=== PATIENT | female | born 1960 | race Caucasian/White ===

== ENCOUNTER 2016-11-26 09:13 | Emergency (ER) | payer MEDICARE ==
[~2016-11-26] VITALS: Ht 157.5 cm; Wt 78.0 kg
[~2016-11-26 09:13] MED LIST: ADDR10T; ALBU8.5H2 IH; AMLO5TAB2 PO; AMLO5TAB4 PO; ASP81CT PO; ASPI-875 PO; ATOR10TA PO; ATOR20TA49 PO; ATOR20TA66 PO; BENZ-13 PO; BENZ100C23 PO; CALC-80 PO; CALCIUM; CEFU250T PO; CEPH500C PO; CIPR-225 PO; CLOP75TA28 PO; CLOP75TA69 PO; DIAZ5TAB PO; DOXY100C42 PO; DXPN25C; GABA-486 PO; GABA-488 PO; GABA100C PO; GABA300C PO; GBPN300C; GBPN600T; HUM; HUMALOG; HYDR-2890 PO; HYDR-32; HYDR-34; HYDR-3720 PO; HYDR-757 PO; INSASP10V SC; INSASP10V SQ; INSHRV; INSU100C4; INSU100I23 SQ; INSU100I29 SQ; INSU100I5 SQ; INSU100V5 SQ; INSU100V8; INSU100VTC SQ; ISOS30TA3 PO; LINA5TAB PO; MELO15TA14 PO; METF-472 PO; METF1000 PO; METF500T4 PO; NOVLOG; OMEG-160 PO; OMEP-10 PO; OMEP20CA12 PO; OXYC-197 PO; OXYC-202 PO; OXYC-272 PO; OXYC-471 PO; OXYC1TAB25 PO; OXYC1TAB95 PO; PANT20TA3 PO; PANT40TA2 PO; PERCOCET; PHEN200T27 PO; PRD20T PO; PRM25T PO; PROM25SU10 PR; PROM25TA14 PO; PROM50SU10 RC; RT-ALBUINH IH; TICA90TA PO; TIZA4CAP6 PO; TRAM-42 PO; TRAM50TA2 PO; TRAZ-28 PO; WRF5T; lisinopril
[2016-11-26 10:01] LABS: BILIRUBIN,URINE NEGATIVE (NEGATIVE); KETONES,URINE NEGATIVE (NEGATIVE); LEUKOCYTE ESTERASE ,URINE NEGATIVE (NEGATIVE); NITRITE,URINE NEGATIVE (NEGATIVE); PH,URINE 6.5 (5-9); PROTEIN,URINE 2+ (NEGATIVE); UROBILINOGEN,URINE NORMAL (NORMAL)
[2016-11-26 10:10] LABS: SQUAMOUS EPITHELIAL CELL,UR RARE /HPF
[2016-11-26 10:35] LABS: BASOPHILS # (AUTO) 0.1 10^3/uL (0.0-0.1); BASOPHILS % (AUTO) 1 % (0-10); EOSINOPHILS # (AUTO) 0.2 10^3/uL (0.0-0.3); EOSINOPHILS % (AUTO) 2 % (0-10); LYMPHOCYTES % (AUTO) 22 % (12-44); MEAN CORPUSCULAR HEMOGLOBIN 30 PG (25-34); MEAN CORPUSCULAR HGB CONC 35 G/DL (32-36); MEAN CORPUSCULAR VOLUME 85 FL (80-99); MEAN PLATELET VOLUME 9.9 FL (7.4-10.4); MONOCYTES # (AUTO) 0.5 X 10^3 (0.0-1.0); MONOCYTES % (AUTO) 5 % (0-12); NEUTROPHILS # (AUTO) 6.6 X 10^3 (1.8-7.8); NEUTROPHILS % (AUTO) 71 % (42-75); PLATELET COUNT 280 10^3/uL (130-400); WHITE BLOOD COUNT 9.4 10^3/uL (4.3-11.0)
[2016-11-26 10:56] LABS: ALBUMIN 4.3 G/DL (3.2-4.5); BILIRUBIN,TOTAL 0.4 MG/DL (0.1-1.0); CREATININE SERUM 1.23 MG/DL (0.60-1.30); POTASSIUM 4.7 MMOL/L (3.6-5.0); TOTAL PROTEIN 7.4 G/DL (6.4-8.2)
[2016-11-26] MEDS ORDERED: fentaNYL INJECTION 100 MCG/2 ML AMP IVP ONE (11:00)
[2016-11-26] MEDS ORDERED: NS IV 1000 ML 1,000 ML IV SCH ×2 (11:00→12:30)
[2016-11-26] MEDS ORDERED: inSUlin (REGULAR) HUMAN 1 UNIT/0.01 ML (CHARGE PER UNIT) IV ONE ×2 (11:00→12:45)
--- NOTE | 2016-11-26 11:34 | ED General ---
General Chief Complaint: Glucose Problems Stated Complaint: ELEV BLOOD SUGAR Nursing Triage Note: c/o elevated blood sugar. Reports glucometer read "too high". Nausea reported Nursing Sepsis Screen: No Definite Risk Source of Information: Patient Exam Limitations: No Limitations History of Present Illness Time Seen by Provider: 11:32 Initial Comments To Er with c/o hyperglycemia since last night. Takes novolog on sliding scale, levimir, metformin prescribed by pedigree tracer Dr. Huertas. Patient does not have a primary care provider. She states "I could've just taken more insulin at home but I was nauseas so I decided to come here". She reports increased pain in bilateral lower extremities which she states is chronic for her secondary to neuropathy. She denies shortness of breath but does report a cough that is nonproductive. Severity: Moderate Associated Systoms: Cough Nausea/Vomiting Allergies and Home Medications Allergies Coded Allergies: ketorolac (Verified Allergy, Severe, ANAPHYLAXIS, PT TAKES ASA AT HOME, ) ondansetron (Verified Allergy, Intermediate, RASH, 07/19/14) RASH/ HIVES exenatide (Verified Allergy, Unknown, NAUSEA, 07/19/14) NON STOP VOMITING latex (Verified Allergy, Unknown, RASH, 07/19/14) metoclopramide (Verified Allergy, Unknown, RESTLESS LEGS, 07/19/14) Home Medications Amlodipine Besylate 5 Mg Tablet 5 MG PO DAILY (Reported) Aspirin 81 Mg Tablet.dr 81 MG PO DAILY (Reported) Atorvastatin Calcium 20 Mg Tablet 20 MG PO HS (Reported) Benzonatate 100 Mg Capsule #20 (Reported) Calcium Carbonate/Vitamin D3 1 Each Tablet 1 TAB PO DAILY (Reported) Gabapentin 100 Mg Capsule 300 MG PO AM (Reported) Gabapentin 300 Mg Capsule 900 MG PO HS (Reported) Hydrocodone/Acetaminophen 1 Each Tablet #10 1 EACH PO Q6H Prescribed by: LATANYA HOLLINGSWORTH on 10/12/16 1805 Insulin Detemir 100 Unit/1 Ml Insuln.pen 50 UNITS SQ BID (Reported) Insulin Lispro 100 Unit/1 Ml Insuln.pen 0 SQ AC (Reported) PER SLIDING SCALE 1 UNIT PER 3 CARBOHYDRATES 1 UNIT FOR EVERY 15 > 150 Linagliptin 5 Mg Tablet 5 MG PO DAILY (Reported) Meloxicam 15 Mg Tablet #10 15 MG PO DAILY Prescribed by: PURA PIÑA on 06/28/16 1823 Metformin HCl 500 Mg Tablet #60 (Reported) Omeprazole 20 Mg Capsule.dr #30 (Reported) Pantoprazole Sodium 20 Mg Tablet.dr 20 MG PO DAILY (Reported) Tramadol HCl 50 Mg Tablet #90 (Reported) Tramadol HCl 50 Mg Tablet #20 50 MG PO Q4H Prescribed by: PURA PIÑA on 10/16/16 2200 Trazodone HCl 50 Mg Tablet 50 MG PO HS (Reported) Constitutional: see HPINo chills, No fever EENTM: see HPI Respiratory: no symptoms reported Cardiovascular: no symptoms reported Genitourinary: no symptoms reported Musculoskeletal: no symptoms reported Skin: no symptoms reported Psychiatric/Neurological: No Symptoms Reported Hematologic/Lymphatic: No Symptoms Reported Past Yqwnyxn-Pyzzis-Grxmoz Hx Patient Social History Alcohol Use: Rarely Uses Recreational Drug Use: No Smoking Status: Former Smoker Type Used: Cigarettes Former Smoker/When Quit: Recent Foreign Travel: No Contact w/Someone Who Travel: No Recent Infectious Disease Expo: No Recent Hopitalizations: No Physical Abuse Screen: No Sexual Abuse: No Immunizations Up To Date Tetanus Booster (TDap): Less than 5yrs PED Vaccines UTD: No Date of Pneumonia Vaccine: Dec 12, 2013 Date of Influenza Vaccine: Sep 20, 2015 Seasonal Allergies Seasonal Allergies: No Surgeries HX Surgeries: Yes Surgeries: Cardiac, Coronary Stent, Ear Surgery, Gallbladder, Orthopedic, Renal Respiratory Hx Respiratory Disorders: No Cardiovascular Hx Cardiac Disorders: Yes (CARDIAC STENTS) Cardiac Disorders: Chronic Edema/Swelling, Coronary Artery Disease, Deep Vein Thrombosis, High Cholesterol, Hypertension Neurological Hx Neurological Disorders: Yes (NEUROPATHY IN HANDS AND FEET) Neurological Disorders: Neuropathy 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 System Hx 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 Disorders: No Sexually Transmitted Disease: No HIV/AIDS: No 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 Disorders: Denies CARD BRUSHER History: Menopausal Genitourinary Hx Genitourinary Disorders: Yes (PT STATES RENAL FAILURE X 3--NO DIALYSIS) Genitourinary Disorders: Bladder Infection, Kidney Stones, Renal Failure Gastrointestinal Hx Gastrointestinal Disorders: Yes Gastrointestinal Disorders: Gastroesophageal Reflux, Gall Bladder Disease, Irritable Bowel Musculoskeletal Hx Musculoskeletal Disorders: Yes (CHRONIC NECK PAIN, PSORIATIC ARTHRITIS ) Musculoskeletal Disorders: Degenerate Disk Disease, Arthritis, Fibromyalgia, Chronic Back Pain Endocrine Hx Endocrine Disorders: Yes Endocrine Disorders: Diabetes, Insulin dep HEENT HX ENT Disorders: Yes HEENT Disorders: Chronic Ear Infection Loss of Vision: Denies Hearing Impairment: Hard of Hearing Cancer Hx Cancer: No Psychosocial Hx Psychiatric Problems: No Integumentary HX Skin/Integumentary Disorder: Yes Skin/Integumentary Disorders: Psoriasis Blood Transfusions Hx Blood Disorders: No Adverse Reaction to a Blood Tr: No Family Medical History Family Medial History: Cancer of mouth 19 FATHER ( of esophogeal cancer.) Cardiovascular disease 19 MOTHER G8 BROTHER Completed stroke 19 FATHER G8 BROTHER Diabetes mellitus G8 BROTHER FH: lung cancer 19 MOTHER Hypertension 19 FATHER Kidney disease 19 FATHER Myocardial infarction 19 MOTHER G8 BROTHER Respiratory disorder No Family History of: AIDS Physical Exam Vital Signs Vital Sign - Last 12Hours 11/26/16 09:57 Temp 97.9 Pulse 97 Resp 18 B/P 171/87 Pulse Ox 98 Capillary Refill : Less Than 3 Seconds General Appearance: No Apparent Distress WD/WN Eyes: Bilateral Eye EOMI, Bilateral Eye Normal Inspection, Bilateral Eye PERRL HEENT: PERRL/EOMI TMs Normal Neck: Full Range of Motion Normal Inspection Respiratory: Normal Breath Sounds No Accessory Muscle Use No Respiratory Distress Cardiovascular: Regular Rate, Rhythm Normal Peripheral Pulses Gastrointestinal: Non Tender Soft Extremity: Normal Capillary Refill No Calf Tenderness Neurologic/Psychiatric: Alert Oriented x3 Skin: Normal Color Warm/Dry Progress/Results/Core Measures Results/Orders Lab Results Laboratory Tests Test 11/26/16 09:43 11/26/16 09:50 11/26/16 10:30 11/26/16 12:41 Range/Units Glucometer 578 *H 399 H 70-110 MG/DL Urine Bacteria NEGATIVE /HPF Urine Bilirubin NEGATIVE NEGATIVE Urine Casts NONE /LPF Urine Clarity CLEAR Urine Color YELLOW Urine Crystals NONE /LPF Urine Culture Indicated NO Urine Glucose (UA) 4+ H NEGATIVE Urine Ketones NEGATIVE NEGATIVE Urine Leukocyte Esterase NEGATIVE NEGATIVE Urine Mucus NEGATIVE /LPF Urine Nitrite NEGATIVE NEGATIVE Urine Protein 2+ H NEGATIVE Urine RBC NONE /HPF Urine RBC (Auto) NEGATIVE NEGATIVE Urine Specific [place] 1.005 L 1.016-1.022 Urine Squamous Epithelial Cells RARE /HPF Urine Urobilinogen NORMAL NORMAL MG/DL Urine WBC NONE /HPF Urine pH 6.5 5-9 Alanine Aminotransferase (ALT/SGPT) 13 0-55 U/L Albumin 4.3 3.2-4.5 G/DL Alkaline Phosphatase 74 40-136 U/L Anion Gap 12 5-14 MMOL/L Aspartate Amino Transf (AST/SGOT) 15 5-34 U/L BUN/Creatinine Ratio 13 Basophils # (Auto) 0.1 0.0-0.1 10^3/uL Basophils (%) (Auto) 1 0-10 % Blood Urea Nitrogen 16 7-18 MG/DL Calcium Level 10.0 8.5-10.1 MG/DL Carbon Dioxide Level 20 L 21-32 MMOL/L Chloride Level 101 98-107 MMOL/L Creatinine 1.23 0.60-1.30 MG/DL Eosinophils # (Auto) 0.2 0.0-0.3 10^3/uL Eosinophils (%) (Auto) 2 0-10 % Estimat Glomerular Filtration Rate 45 Glucose Level 670 *H 70-105 MG/DL Hematocrit 43 35-52 % Hemoglobin 15.0 11.5-16.0 G/DL Hemoglobin A1c 9.4 H 4.5-6.2 % Lymphocytes # (Auto) 2.0 1.0-4.0 X 10^3 Lymphocytes (%) (Auto) 22 12-44 % Mean Corpuscular Hemoglobin 30 25-34 PG Mean Corpuscular Hemoglobin Concent 35 32-36 G/DL Mean Corpuscular Volume 85 80-99 FL Mean Platelet Volume 9.9 7.4-10.4 FL Monocytes # (Auto) 0.5 0.0-1.0 X 10^3 Monocytes (%) (Auto) 5 0-12 % Neutrophils # (Auto) 6.6 1.8-7.8 X 10^3 Neutrophils (%) (Auto) 71 42-75 % Platelet Count 280 130-400 10^3/uL Potassium Level 4.7 3.6-5.0 MMOL/L Red Blood Count 5.00 4.35-5.85 10^6/uL Red Cell Distribution Width 13.0 10.0-14.5 % Sodium Level 133 L 135-145 MMOL/L Total Bilirubin 0.4 0.1-1.0 MG/DL Total Protein 7.4 6.4-8.2 G/DL White Blood Count 9.4 4.3-11.0 10^3/uL My Orders Orders-JR MARIE APRN Ns Iv 1000 Ml (Sodium Chloride 0.9%) (11/26/16 11:00) Insulin (Regular) Human (Humulin R (Per (11/26/16 11:00) Fentanyl Injection (Sublimaze Injection (11/26/16 11:00) Chest Pa/Lat (2 View) (11/26/16 11:30) Hemoglobin A1c (11/26/16 12:25) Ns Iv 1000 Ml (Sodium Chloride 0.9%) (11/26/16 12:30) Accucheck Stat ONCE (11/26/16 12:30) Promethazine Syrup (Phenergan Syrup) (11/26/16 12:45) Insulin (Regular) Human (Humulin R (Per (11/26/16 12:45) Promethazine Injection (Phenergan Injec (11/26/16 13:00) Promethazine Injection (Phenergan Injec (11/26/16 13:00) Diphenhydramine Injection (Benadryl Inje (11/26/16 13:00) Accucheck Stat ONCE (11/26/16 13:23) Medications Given in ED Current Medications Medications Dose Ordered Sig/Jackie Route Start Time Stop Time Status Last Admin Dose Admin Diphenhydramine HCl 12.5 mg ONCE ONCE IM 11/26/16 13:00 11/26/16 13:01 DC 11/26/16 13:02 12.5 MG Fentanyl Citrate 50 mcg ONCE ONCE IVP 11/26/16 11:00 11/26/16 11:03 DC 11/26/16 11:21 50 MCG Insulin Human Regular 5 unit ONCE ONCE IV 11/26/16 12:45 11/26/16 12:46 DC 11/26/16 12:47 5 UNIT Insulin Human Regular 10 unit ONCE ONCE IV 11/26/16 11:00 11/26/16 11:03 DC 11/26/16 11:21 10 UNIT Promethazine HCl 12.5 mg ONCE ONCE IM 11/26/16 13:00 11/26/16 13:01 DC 11/26/16 13:19 12.5 MG Vital Signs/I&O Vital Sign - Last 12Hours 11/26/16 09:57 Temp 97.9 Pulse 97 Resp 18 B/P 171/87 Pulse Ox 98 Blood Pressure Mean: 115 Diagnostic Imaging Diagonstic Imaging: Xray Plain Films/CT/US/NM/MRI: chest Comments NAME: VALENTE [facility] REC#: [id number] PT STATUS: REG ER : 1960 PHYSICIAN: JR MARIE APRN ADMIT DATE: 11/26/16/ER Signed Date of Exam:11/26/16 CHEST PA/LAT (2 VIEW) PA and lateral views of the chest Indication: High blood sugar. Fever. Cough. Findings: The lungs are clear. The heart size is normal. There is no effusion or pneumothorax The mediastinum and boby appear unremarkable. Cervical spine fusion hardware seen. Impression: Unremarkable study. Dictated by: Dictated on workstation # [id number] Dict: 11/26/16 1209 Trans: 11/26/16 1209 [facility] [id number] Interpreted by: ERON MARTINEZ MD Electronically signed by: ERON MARTINEZ MD 11/26/16 1212 Departure Impression Impression: Primary Impression: Uncontrolled type 2 DM with hyperosmolar nonketotic hyperglycemia Additional Impression: Chronic pain Disposition: HOME, SELF-CARE Condition: Improved Departure-Patient Inst. Decision time for Depature: 12:24 Referrals: NO,LOCAL PHYSICIAN (PCP/Family) Primary Care Physician Patient Instructions: Diabetes Type 2 (DC) Add. Discharge Instructions: Use your insulin according to your sliding scale to prevent episodes like this from occurring 2. Drink plenty of fluids 3. Check your blood sugars every 2-3 hours to maintain a blood sugar of 100- 200. All discharge instructions reviewed with patient and/or family. Voiced understanding. JR MARIE APRN Nov 26, 2016 11:34
--- NOTE | 2016-11-26 12:12 | Diagnostic Imaging Report ---
PA and lateral views of the chest Indication: High blood sugar. Fever. Cough. Findings: The lungs are clear. The heart size is normal. There is no effusion or pneumothorax The mediastinum and boby appear unremarkable. Cervical spine fusion hardware seen. Impression: Unremarkable study. Dictated by: Dictated on workstation # [id number]
[2016-11-26] MEDS ORDERED: PROMETHAZINE 6.25 MG/5 ML SYRUP (PHENERGAN) 5 ML UDC PO ONE (12:45)
[2016-11-26] MEDS ORDERED: PROMETHAZINE INJ 25 MG/ML (PHENERGAN) AMP IM ONE ×2 (13:00)
[2016-11-26] MEDS ORDERED: diphenhydrAMINE 50 MG/ML INJ (BENADRYL) IM ONE (13:00)
[2016-11-26 14:14] VITALS: BP 165/93
[2016-12-02] MEDS ORDERED: HYDR-3812 PO (13:35)
[2016-12-30] MEDS ORDERED: IBUP-2055 PO (10:19)
== END 2016-11-26 14:14 | disposition home or self-care (01) ==
LOC: EDUNIT# 09:13 → ER 09:14
DX: E11.65 Type 2 diabetes mellitus with hyperglycemia (principal); E11.40 Type 2 diabetes mellitus with diabetic neuropathy, unspecified; G89.29 Other chronic pain; I10 Essential (primary) hypertension; I25.10 Atherosclerotic heart disease of native coronary artery without angina pectoris; Z79.82 Long term (current) use of aspirin; Z79.84 Long term (current) use of oral hypoglycemic drugs; Z79.899 Other long term (current) drug therapy; Z95.5 Presence of coronary angioplasty implant and graft
CPT/HCPCS: 36415; 71020; 80053; 81000; 82962; 83036; 85025; 96361; 96372; 96374; 96375; 96376

== ENCOUNTER 2016-11-30 08:40 | Inpatient (IN) | payer MEDICARE ==
[~2016-11-30] VITALS: Ht 152.4 cm; Wt 78.0 kg
[2016-11-30] MEDS ORDERED: NS IV 1000 ML 1,000 ML IV STA (09:05)
[2016-11-30] MEDS ORDERED: PROMETHAZINE INJ 25 MG/ML (PHENERGAN) AMP IVP STA (09:05)
[2016-11-30] MEDS ORDERED: inSUlin (REGULAR) HUMAN 1 UNIT/0.01 ML (CHARGE PER UNIT) IV STA (09:14)
[2016-11-30] MEDS ORDERED: diphenhydrAMINE 50 MG/ML INJ (BENADRYL) IV STA (09:14)
--- NOTE | 2016-11-30 09:21 | ED General ---
General Chief Complaint: Glucose Problems Stated Complaint: HIGH BS, CHEST PAIN Nursing Triage Note: Pt reports blood sugar reading "hi" on home glucometer since last night. Pt also reports CP since last night and stating "everything hurts". Pt c/o nausea and states phenergan and benadryl are the only things that will fix it. Nursing Sepsis Screen: No Definite Risk Source of Information: Patient Exam Limitations: No Limitations History of Present Illness Time Seen by Provider: 09:05 Initial Comments Here with 4 days of labile blood sugar and reading high. This is associated with nausea and vomiting. Does have history of diabetes that is usually somewhat well controlled. She has no primary care doctor but does have specialty physicians in endocrinology, pain management and cardiology. Reports multiple episodes of nausea and vomiting. Blood sugar has red eyes since yesterday. Does report cough Timing/Duration: 4-5 Days Severity: Moderate, Severe Modifying Factors: improves with Rest Associated Systoms: CoughNo Fever/Chills, Nausea/Vomiting Shortness of Air Weakness Allergies and Home Medications Allergies Coded Allergies: ketorolac (Verified Allergy, Severe, ANAPHYLAXIS, PT TAKES ASA AT HOME, ) ondansetron (Verified Allergy, Intermediate, RASH, 07/19/14) RASH/ HIVES exenatide (Verified Allergy, Unknown, NAUSEA, 07/19/14) NON STOP VOMITING latex (Verified Allergy, Unknown, RASH, 07/19/14) metoclopramide (Verified Allergy, Unknown, RESTLESS LEGS, 07/19/14) Home Medications Amlodipine Besylate 5 Mg Tablet 5 MG PO DAILY (Reported) Aspirin 81 Mg Tablet.dr 81 MG PO DAILY (Reported) Atorvastatin Calcium 20 Mg Tablet 20 MG PO HS (Reported) Benzonatate 100 Mg Capsule #20 (Reported) Calcium Carbonate/Vitamin D3 1 Each Tablet 1 TAB PO DAILY (Reported) Gabapentin 100 Mg Capsule 300 MG PO AM (Reported) Gabapentin 300 Mg Capsule 900 MG PO HS (Reported) Hydrocodone/Acetaminophen 1 Each Tablet #10 1 EACH PO Q6H Prescribed by: LATANYA HOLLINGSWORTH on 10/12/16 1805 Insulin Detemir 100 Unit/1 Ml Insuln.pen 50 UNITS SQ BID (Reported) Insulin Lispro 100 Unit/1 Ml Insuln.pen 0 SQ AC (Reported) PER SLIDING SCALE 1 UNIT PER 3 CARBOHYDRATES 1 UNIT FOR EVERY 15 > 150 Linagliptin 5 Mg Tablet 5 MG PO DAILY (Reported) Meloxicam 15 Mg Tablet #10 15 MG PO DAILY Prescribed by: PURA PIÑA on 06/28/16 1823 Metformin HCl 500 Mg Tablet #60 (Reported) Omeprazole 20 Mg Capsule.dr #30 (Reported) Pantoprazole Sodium 20 Mg Tablet.dr 20 MG PO DAILY (Reported) Tramadol HCl 50 Mg Tablet #90 (Reported) Tramadol HCl 50 Mg Tablet #20 50 MG PO Q4H Prescribed by: PURA PIÑA on 10/16/16 2200 Trazodone HCl 50 Mg Tablet 50 MG PO HS (Reported) Constitutional: see HPINo chills, No fever EENTM: no symptoms reported Respiratory: see HPI cough short of breath Cardiovascular: no symptoms reported Gastrointestinal: see HPI nausea vomiting Genitourinary: no symptoms reported Musculoskeletal: no symptoms reported Skin: no symptoms reported Psychiatric/Neurological: See HPIDenies Headache, Weakness Hematologic/Lymphatic: No Symptoms Reported All Other Systems Reviewed Negative Unless Noted: Yes Past Cncgihq-Ctnreb-Yakcmq Hx Patient Social History Alcohol Use: Denies Use Recreational Drug Use: No Smoking Status: Former Smoker Type Used: Cigarettes Former Smoker/When Quit: Recent Foreign Travel: No Contact w/Someone Who Travel: No Recent Infectious Disease Expo: No Recent Hopitalizations: No Physical Abuse Screen: No Sexual Abuse: No Immunizations Up To Date Tetanus Booster (TDap): Less than 5yrs PED Vaccines UTD: No Date of Pneumonia Vaccine: Dec 12, 2013 Date of Influenza Vaccine: Sep 20, 2015 Seasonal Allergies Seasonal Allergies: No Surgeries HX Surgeries: Yes Surgeries: Cardiac, Coronary Stent, Ear Surgery, Gallbladder, Orthopedic, Renal Respiratory Hx Respiratory Disorders: No Cardiovascular Hx Cardiac Disorders: Yes (CARDIAC STENTS) Cardiac Disorders: Chronic Edema/Swelling, Coronary Artery Disease, Deep Vein Thrombosis, High Cholesterol, Hypertension Neurological Hx Neurological Disorders: Yes (NEUROPATHY IN HANDS AND FEET) Neurological Disorders: Neuropathy 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 System Hx 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 Disorders: No Sexually Transmitted Disease: No HIV/AIDS: No 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 Disorders: Denies 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 History: Menopausal Genitourinary Hx Genitourinary Disorders: Yes (PT STATES RENAL FAILURE X 3--NO DIALYSIS) Genitourinary Disorders: Bladder Infection, Kidney Stones, Renal Failure Gastrointestinal Hx Gastrointestinal Disorders: Yes Gastrointestinal Disorders: Gastroesophageal Reflux, Gall Bladder Disease, Irritable Bowel Musculoskeletal Hx Musculoskeletal Disorders: Yes (CHRONIC NECK PAIN, PSORIATIC ARTHRITIS ) Musculoskeletal Disorders: Degenerate Disk Disease, Arthritis, Fibromyalgia, Chronic Back Pain Endocrine Hx Endocrine Disorders: Yes Endocrine Disorders: Diabetes, Insulin dep HEENT HX ENT Disorders: Yes HEENT Disorders: Chronic Ear Infection Loss of Vision: Denies Hearing Impairment: Hard of Hearing Cancer Hx Cancer: No Psychosocial Hx Psychiatric Problems: No Integumentary HX Skin/Integumentary Disorder: Yes Skin/Integumentary Disorders: Psoriasis Blood Transfusions Hx Blood Disorders: No Adverse Reaction to a Blood Tr: No Reviewed Nursing Assessment Reviewed/Agree w Nursing PMH: Yes Family Medical History Significant Family History: No Pertinent Family Hx Family Medial History: Cancer of mouth 19 FATHER ( of esophogeal cancer.) Cardiovascular disease 19 MOTHER G8 BROTHER Completed stroke 19 FATHER G8 BROTHER Diabetes mellitus G8 BROTHER FH: lung cancer 19 MOTHER Hypertension 19 FATHER Kidney disease 19 FATHER Myocardial infarction 19 MOTHER G8 BROTHER Respiratory disorder Physical Exam Vital Signs Vital Sign - Last 12Hours 11/30/16 08:44 Temp 96.7 Pulse 90 Resp 18 B/P 157/83 Pulse Ox 97 O2 Delivery Room Air Capillary Refill : Less Than 3 Seconds General Appearance: No Apparent Distress WD/WN HEENT: PERRL/EOMI Pharynx Normal Neck: Non Tender Supple Respiratory: No Accessory Muscle UseNo Wheezing, Other (course sounds with cough) Cardiovascular: Regular Rate, Rhythm No Murmur Gastrointestinal: Non Tender Soft Extremity: Non Tender No Calf Tenderness Neurologic/Psychiatric: Alert Oriented x3 Skin: Normal Color Warm/Dry Progress/Results/Core Measures Results/Orders Lab Results Laboratory Tests Test 11/30/16 08:52 11/30/16 09:19 11/30/16 13:00 Range/Units Glucometer > 600 *H 70-110 MG/DL Urine Bacteria TRACE /HPF Urine Bilirubin NEGATIVE NEGATIVE Urine Casts NONE /LPF Urine Clarity CLEAR Urine Color YELLOW Urine Crystals NONE /LPF Urine Culture Indicated NO Urine Glucose (UA) 4+ H NEGATIVE Urine Ketones NEGATIVE NEGATIVE Urine Leukocyte Esterase NEGATIVE NEGATIVE Urine Mucus NEGATIVE /LPF Urine Nitrite NEGATIVE NEGATIVE Urine Protein NEGATIVE NEGATIVE Urine RBC NONE /HPF Urine RBC (Auto) NEGATIVE NEGATIVE Urine Specific Mcloud 1.005 L 1.016-1.022 Urine Squamous Epithelial Cells RARE /HPF Urine Urobilinogen NORMAL NORMAL MG/DL Urine WBC NONE /HPF Urine Yeast FEW H /HPF Urine pH 6.5 5-9 Activated Partial Thromboplast Time 21 L 24-35 SEC Alanine Aminotransferase (ALT/SGPT) 9 0-55 U/L Albumin 4.5 3.2-4.5 G/DL Alkaline Phosphatase 93 40-136 U/L Amylase Level 52 25-125 U/L Anion Gap 13 5-14 MMOL/L Aspartate Amino Transf (AST/SGOT) 7 5-34 U/L BUN/Creatinine Ratio 19 Basophils # (Auto) 0.1 0.0-0.1 10^3/uL Basophils (%) (Auto) 1 0-10 % Blood Urea Nitrogen 30 H 7-18 MG/DL Calcium Level 9.8 8.5-10.1 MG/DL Carbon Dioxide Level 22 21-32 MMOL/L Chloride Level 93 L 98-107 MMOL/L Creatinine 1.54 H 0.60-1.30 MG/DL Eosinophils # (Auto) 0.3 0.0-0.3 10^3/uL Eosinophils (%) (Auto) 2 0-10 % Estimat Glomerular Filtration Rate 35 Glucose Level 823 *H 70-105 MG/DL Hematocrit 41 35-52 % Hemoglobin 14.9 11.5-16.0 G/DL INR Comment 0.9 0.8-1.4 Lipase 52 8-78 U/L Lymphocytes # (Auto) 2.7 1.0-4.0 X 10^3 Lymphocytes (%) (Auto) 22 12-44 % Mean Corpuscular Hemoglobin 30 25-34 PG Mean Corpuscular Hemoglobin Concent 37 H 32-36 G/DL Mean Corpuscular Volume 82 80-99 FL Mean Platelet Volume 10.8 H 7.4-10.4 FL Monocytes # (Auto) 0.6 0.0-1.0 X 10^3 Monocytes (%) (Auto) 5 0-12 % Neutrophils # (Auto) 8.5 H 1.8-7.8 X 10^3 Neutrophils (%) (Auto) 70 42-75 % Platelet Count 233 130-400 10^3/uL Potassium Level 4.7 3.6-5.0 MMOL/L Prothrombin Time 12.1 L 12.2-14.7 SEC Red Blood Count 4.98 4.35-5.85 10^6/uL Red Cell Distribution Width 12.7 10.0-14.5 % Sodium Level 128 L 135-145 MMOL/L Total Bilirubin 0.6 0.1-1.0 MG/DL Total Protein 7.6 6.4-8.2 G/DL Troponin I < 0.30 <0.30 NG/ML White Blood Count 12.1 H 4.3-11.0 10^3/uL My Orders Orders-VALENTIN YANES MD Promethazine Injection (Phenergan Injec (11/30/16 09:05) Ns Iv 1000 Ml (Sodium Chloride 0.9%) (11/30/16 09:05) Amylase (11/30/16 09:05) Cbc With Automated Diff (11/30/16 09:05) Comprehensive Metabolic Panel (11/30/16 09:05) Lipase (11/30/16 09:05) Protime With Inr (11/30/16 09:05) Partial Thromboplastin Time (11/30/16 09:05) Troponin I (11/30/16 09:05) Ua Culture If Indicated (11/30/16 09:05) Chest Pa/Lat (2 View) (11/30/16 09:05) Ekg Tracing (11/30/16 09:05) O2 (11/30/16 09:05) Monitor-Rhythm Ecg Trace Only (11/30/16 09:05) Diphenhydramine Injection (Benadryl Inje (11/30/16 09:14) Insulin (Regular) Human (Humulin R (Per (11/30/16 09:14) Picc Insertion .on Insertion (11/30/16 10:44) Chest 1 View, Ap/Pa Only (11/30/16 11:48) Cath [id number] (11/30/16 ) Amb Us Guide Vascular Access (11/30/16 ) Diphenhydramine Injection (Benadryl Inje (11/30/16 12:40) Promethazine Injection (Phenergan Injec (11/30/16 12:40) Ns Iv 1000 Ml (Sodium Chloride 0.9%) (11/30/16 12:40) Insulin (Regular) Human (Humulin R (Per (11/30/16 12:41) Morphine Injection (Morphine Injection (11/30/16 14:07) Vital Signs/I&O Vital Sign - Last 12Hours 11/30/16 11/30/16 08:44 09:14 Temp 96.7 Pulse 90 Resp 18 B/P 157/83 Pulse Ox 97 97 O2 Delivery Room Air Room Air Blood Pressure Mean: 107 Point of Care Testing Blood Glucose Action Taken: GLUCOMETER READING "HI" Progress Note : Progress Note Seen and evaluated. IV, labs, EKG and chest x-ray ordered. Normal saline bolus. Insulin 10 units IV ordered. Phenergan 25 mg IV and Benadryl 50 mg IV ordered. Monitor patient. Multiple attempts at IV tried by both nursing and myself. Unable to get any IV access. Patient does have blood sugar greater than 600 and is very concerning for her uncontrolled diabetes. Option of PICC line versus central line. We will place PICC line and get labs and fluids that are going to be needed for resuscitation. This was discussed with the patient who agrees. 1400: I did discuss the case with Dr. Berry at 1355. She accepts patient for admission, inpatient status due to the hyperglycemia with hyperosmolar state and acute renal failure. She also has persistent nausea which is can complicate her course. Patient did receive a liter of fluid here and we will continue IV fluid at 150 mL an hour. Sliding scale insulin will be initiated. We also discussed with the patient regarding consult with surgeon for port placement due to patient's terrible access. Patient is in full agreement with this. Consult was ordered. Admit, inpatient status. Patient agrees with plan. ECG Initial ECG Impression Date: Nov 30, 2016 Initial ECG Impression Time: 08:49 Initial ECG Rate: 93 Initial ECG Rhythm: Normal Sinus Comment Sinus rhythm with normal axis. No evidence of ST elevation CO. Similar to previous of 03/10/16. Interpreted by me. Diagnostic Imaging Diagonstic Imaging: Xray Plain Films/CT/US/NM/MRI: chest Comments VIA [facility], [facility]. [place], [place] NAME: SCOTVALENTE ROBLEDO MED REC#: [id number] PT STATUS: REG ER : 1960 PHYSICIAN: VALENTIN YANES MD ADMIT DATE: 11/30/16/ER Draft Date of Exam:11/30/16 CHEST PA/LAT (2 VIEW) CLINICAL INDICATION: Patient with blood sugar. EXAM: Chest x-ray PA and lateral views. COMPARISONS: Chest x-ray dated 11/30/2016. FINDINGS: Lungs/pleura: Lungs are clear. There is no pneumothorax. There is no pleural effusion. Mediastinum: Unremarkable. Pulmonary vasculature: Unremarkable. Heart: Unremarkable. Bones/extrathoracic soft tissue: There are hypertrophic degenerative osteophytes scattered throughout the thoracic spine. Lower cervical spine anterior disc fusion is seen. Incompletely imaged lumbar hardware is noted. IMPRESSION: There is no radiographic evidence of acute cardiopulmonary process. Dictated on workstation # [id number] Dict: 11/30/16 0951 Trans: 11/30/[address] [place] [address] [id number] Interpreted by: SHERI CHIANG MD Electronically signed by: Reviewed: Reviewed by Me Departure Communication Time/Spoke to Admitting Phy: 13:55 Impression Impression: Primary Impression: Uncontrolled type 2 DM with hyperosmolar nonketotic hyperglycemia Additional Impression: Acute renal insufficiency Disposition: ADMITTED INPATIENT Condition: Stable Decision to Admit Reason: Admit from ER (General) Decision to Admit/Date: Nov 30, 2016 Time/Decision to Admit Time: 13:55 Departure-Patient Inst. Referrals: NO,LOCAL PHYSICIAN (PCP/Family) Primary Care Physician VALENTIN YANES MD Nov 30, 2016 09:21
[2016-11-30 09:27] LABS: BILIRUBIN,URINE NEGATIVE (NEGATIVE); KETONES,URINE NEGATIVE (NEGATIVE); LEUKOCYTE ESTERASE ,URINE NEGATIVE (NEGATIVE); NITRITE,URINE NEGATIVE (NEGATIVE); PH,URINE 6.5 (5-9); PROTEIN,URINE NEGATIVE (NEGATIVE); UROBILINOGEN,URINE NORMAL (NORMAL)
[2016-11-30 09:34] LABS: SQUAMOUS EPITHELIAL CELL,UR RARE /HPF; YEAST,URINE FEW /HPF
--- NOTE | 2016-11-30 10:03 | Diagnostic Imaging Report ---
CLINICAL INDICATION: Patient with blood sugar. EXAM: Chest x-ray PA and lateral views. COMPARISONS: Chest x-ray dated 11/30/2016. FINDINGS: Lungs/pleura: Lungs are clear. There is no pneumothorax. There is no pleural effusion. Mediastinum: Unremarkable. Pulmonary vasculature: Unremarkable. Heart: Unremarkable. Bones/extrathoracic soft tissue: There are hypertrophic degenerative osteophytes scattered throughout the thoracic spine. Lower cervical spine anterior disc fusion is seen. Incompletely imaged lumbar hardware is noted. IMPRESSION: There is no radiographic evidence of acute cardiopulmonary process. Dictated by: Dictated on workstation # [id number]
--- NOTE | 2016-11-30 12:07 | Diagnostic Imaging Report ---
EXAMINATION: Portable upright radiograph of the chest. INDICATION: PICC line placement. FINDINGS: There is a right PICC line in place with the tip at the distal SVC level. The lungs are clear. The heart size is normal. No effusion or pneumothorax. The mediastinum and boby appear unremarkable. Cervical spine fusion hardware is seen. IMPRESSION: The PICC line tip is at the distal SVC level. No acute process. Dictated by: Dictated on workstation # [id number]
[2016-11-30] MEDS ORDERED: diphenhydrAMINE 50 MG/ML INJ (BENADRYL) ONE (12:40)
[2016-11-30] MEDS ORDERED: NS IV 1000 ML 1,000 ML ONE (12:40)
[2016-11-30] MEDS ORDERED: PROMETHAZINE INJ 25 MG/ML (PHENERGAN) AMP ONE (12:40)
[2016-11-30] MEDS ORDERED: inSUlin (REGULAR) HUMAN 1 UNIT/0.01 ML (CHARGE PER UNIT) ONE (12:41)
[2016-11-30 13:11] LABS: BASOPHILS # (AUTO) 0.1 10^3/uL (0.0-0.1); BASOPHILS % (AUTO) 1 % (0-10); EOSINOPHILS # (AUTO) 0.3 10^3/uL (0.0-0.3); EOSINOPHILS % (AUTO) 2 % (0-10); LYMPHOCYTES # (AUTO) 2.7 X 10^3 (1.0-4.0); LYMPHOCYTES % (AUTO) 22 % (12-44); MEAN CORPUSCULAR HEMOGLOBIN 30 PG (25-34); MEAN CORPUSCULAR HGB CONC 37 G/DL (32-36); MEAN CORPUSCULAR VOLUME 82 FL (80-99); MEAN PLATELET VOLUME 10.8 FL (7.4-10.4); MONOCYTES # (AUTO) 0.6 X 10^3 (0.0-1.0); MONOCYTES % (AUTO) 5 % (0-12); NEUTROPHILS # (AUTO) 8.5 X 10^3 (1.8-7.8); NEUTROPHILS % (AUTO) 70 % (42-75); PLATELET COUNT 233 10^3/uL (130-400); RED BLOOD COUNT 4.98 10^6/uL (4.35-5.85); RED CELL DISTRIBUTION WIDTH 12.7 % (10.0-14.5); WHITE BLOOD COUNT 12.1 10^3/uL (4.3-11.0)
[2016-11-30 13:20] LABS: INR 0.9 (0.8-1.4); PROTHROMBIN TIME PATIENT 12.1 SEC (12.2-14.7)
[2016-11-30 13:31] LABS: ALANINE AMINOTRANSFERASE 9 U/L (0-55); ALBUMIN 4.5 G/DL (3.2-4.5); AMYLASE 52 U/L (25-125); ANION GAP 13 MMOL/L (5-14); ASPARTATE AMINO TRANSFERASE 7 U/L (5-34); BILIRUBIN,TOTAL 0.6 MG/DL (0.1-1.0); BLOOD UREA NITROGEN 30 MG/DL (7-18); BUN/CREATININE RATIO 19; CALCIUM 9.8 MG/DL (8.5-10.1); CARBON DIOXIDE 22 MMOL/L (21-32); CHLORIDE 93 MMOL/L (98-107); CREATININE SERUM 1.54 MG/DL (0.60-1.30); GFR ESTIMATED 35; LIPASE 52 U/L (8-78); POTASSIUM 4.7 MMOL/L (3.6-5.0); SODIUM 128 MMOL/L (135-145); TOTAL PROTEIN 7.6 G/DL (6.4-8.2)
[2016-11-30 13:37] LABS: TROPONIN I < 0.30 NG/ML (<0.30)
[2016-11-30 13:48] LABS: GLUCOSE 823 MG/DL (70-105)
[2016-11-30] MEDS ORDERED: morphine INJ 10 MG/ML 1ML (SYR OR VIAL) IVP STA (14:07)
--- NOTE | 2016-11-30 14:34 | History & Physical-Hospitalist ---
CONSUELOSWETHAALEX MED STUDENT 11/30/16 1433: HPI History of Present Illness: HPI/Chief Complaint CC: high blood sugar HPI: Ms. Urbano is a 56yo with a PMH of DM and CAD who presented to the ED with a blood sugar >800 with nausea and vomiting. Her labs were also significant for a creatinine of 1.5, sodium of 128, WBC of 12.1, and her urine was negative for ketones. She states she has not been able to eat in over a day due to the nausea. Her vascular access is extremely poor. She eventually required a PICC line placed, but will need a more definitive line here shortly. She does not currently have a PCP. She used to go to [facility], but says she will never go back there. She sees multiple specialists including cards, pulm, endo, and pain. She is currently living with her sister and is unemployed on disability. Source: patient, RN/MD Exam Limitations: no limitations Date Seen 11/30/16 Attending Physician Jamal KNAPP No,Local Physician Referring Physician Date of Admission 11/30/16 Home Medications & Allergies Home Medications Reviewed patient Home Medication Reconciliation Form Allergies Coded Allergies: ketorolac (Verified Allergy, Severe, ANAPHYLAXIS, PT TAKES ASA AT HOME, ) ondansetron (Verified Allergy, Intermediate, RASH, 07/19/14) RASH/ HIVES exenatide (Verified Allergy, Unknown, NAUSEA, 07/19/14) NON STOP VOMITING latex (Verified Allergy, Unknown, RASH, 07/19/14) metoclopramide (Verified Allergy, Unknown, RESTLESS LEGS, 07/19/14) Past Diloqcp-Qjxgcw-Phyihu Hx Patient Social History Marrital Status: single Number of Children: 2 Employed/Student: unemployed Alcohol Use: Rarely Uses Recreational Drug Use: No Smoking Status: Former Smoker (30 pack year smoke history, quit smoking this week, but she thinks she will continue because she lives with smokers) Former smoker/When Quit: Type Used: Cigarettes Physical Abuse Screen: No Sexual Abuse: No Recent Foreign Travel: No Contact w/other who traveled: No Recent Hopitalizations: No Recent Infectious Disease Expo: No Immunizations Up To Date Tetanus Booster (TDap): Less than 5yrs Date of Pneumonia Vaccine: Dec 12, 2013 Date of Influenza Vaccine: Sep 20, 2015 Seasonal Allergies Seasonal Allergies: No Surgeries HX Surgeries: Yes Surgeries: Cardiac, Coronary Stent, Ear Surgery, Gallbladder, Orthopedic, Renal Respiratory Hx Respiratory Disorders: No Cardiovascular Hx Cardiovascular Disorders: Yes (CARDIAC STENTS) Cardiac Disorders: Chronic Edema/Swelling, Coronary Artery Disease, Deep Vein Thrombosis, High Cholesterol, Hypertension Neurological Hx Neurological Disorders: Yes (NEUROPATHY IN HANDS AND FEET) Neurological Disorders: Neuropathy 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 System Hx 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 Disorders: No Sexually Transmitted Disease: No HIV/AIDS: No 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 Disorders: Denies Genitourinary Hx Genitourinary Disorders: Yes (PT STATES RENAL FAILURE X 3--NO DIALYSIS) Genitourinary Disorders: Bladder Infection, Kidney Stones, Renal Failure Gastrointestinal Hx Gastrointestinal Disorders: Yes Gastrointestinal Disorders: Gastroesophageal Reflux, Gall Bladder Disease, Irritable Bowel Musculoskeletal Hx Musculoskeletal Disorders: Yes (CHRONIC NECK PAIN, PSORIATIC ARTHRITIS ) Musculoskeletal Disorders: Degenerate Disk Disease, Arthritis, Fibromyalgia, Chronic Back Pain Endocrine Hx Endocrine Disorders: Yes Endocrine Disorders: Diabetes, Insulin dep HEENT HX ENT Disorders: Yes HEENT Disorders: Chronic Ear Infection Loss of Vision: Denies Hearing Impairment: Hard of Hearing Cancer Hx Cancer: No Psychosocial Hx Psychiatric Problems: No Integumentary HX Skin/Integumentary Disorder: Yes Skin/Integumentary Disorders: Psoriasis Blood Transfusions Hx Blood Disorders: No Adverse Reaction to a Blood Tr: No Reviewed Nursing Assessment Reviewed/Agree w Nursing PMH: Yes Family Medical History Significant Family History: No Pertinent Family Hx Family Hx: Cancer of mouth 19 FATHER ( of esophogeal cancer.) Cardiovascular disease 19 MOTHER G8 BROTHER Completed stroke 19 FATHER G8 BROTHER Diabetes mellitus G8 BROTHER FH: lung cancer 19 MOTHER Hypertension 19 FATHER Kidney disease 19 FATHER Myocardial infarction 19 MOTHER G8 BROTHER Respiratory disorder No Family History of: AIDS Review of Systems Constitutional: chills (yesterday) dizzinessNo malaise EENTM: No blurred vision Respiratory: cough (chronic for 6 months)No hemoptysis, No short of breath Cardiovascular: No chest pain, No palpitations Gastrointestinal: No abdominal pain, No constipation, No diarrhea, No hematemesis, nausea vomiting Genitourinary: frequencyNo hematuria Musculoskeletal: back pain joint pain Skin: no symptoms reported Psychiatric/Neurological: Tingling (chronic from neuropathy) All Other Systems Reviewed Negative Unless Noted: Yes Physical Exam Physical Exam Vital Signs Vital Sign - Last 12Hours 11/30/16 08:44 Temp 96.7 Pulse 90 Resp 18 B/P 157/83 Pulse Ox 97 O2 Delivery Room Air Capillary Refill : Less Than 3 Seconds General Appearance: Other (tired, eyes closed during most of interview, sitting up in bed, obese) HEENT: PERRL/EOMI TMs Normal Pharyngeal Erythema Neck: Full Range of Motion Other (webbed neck appearance ) Respiratory: Chest Non Tender Lungs Clear Normal Breath Sounds No Accessory Muscle Use No Respiratory Distress Cardiovascular: Regular Rate, Rhythm No Edema No Gallop No JVD No Murmur Normal Peripheral Pulses Gastrointestinal: Normal Bowel Sounds No Organomegaly No Pulsatile Mass Non Tender Soft Rectal: Deferred Back: Normal Inspection No CVA Tenderness Extremity: Normal Capillary Refill Normal Inspection Normal Range of Motion Non Tender No Calf Tenderness Neurologic/Psychiatric: Alert Oriented x3 No Motor/Sensory Deficits Normal Mood/Affect Skin: Normal Color Warm/Dry Lymphatic: No Adenopathy Results Results/Procedures Lab Laboratory Tests 11/30/16 13:00 Radiology chest xray: There is no radiographic evidence of acute cardiopulmonary process. Assessment/Plan Admission Diagnosis hyperglycemia, LANE, hyponatremia Assessment and Plan 56yo poorly controlled diabetic with blood sugar >800 without ketones in the urine. 1. hyperglycemia, DM II -patient currently not eating due to nausea -begin high dose correction factor until eating regularly -monitor labs, specifically potassium as blood sugar normalizes with insulin use -obtain PCP for DM management as outpatient 2. LANE -creatinine 1.5 -likely prerenal in setting of poor fluid intake, polyuria, and hyperglycemia -will give fluid bolus as well as maintenance IVF -will continue to follow labs -PICC line currently in place for fluids, but access is extremely poor. Will need surgery consult for port placement 3. hyponatremia 4. leukocytosis -will continue to follow, likely stress related 5. CAD -continue home meds 6. HTN -continue home meds 7. neuropathy -continue home dose of gabapentin 8. Degenerative disc disease -continue home dose of tramadol for back pain 9. access to care -patient currently without PCP, will need social work consult 10. tobacco use AZEEM MELVIN DO 12/01/16 1133: HPI History of Present Illness: HPI/Chief Complaint Interviewed the patient with medical student and patient feels much better overall since admission to the ER. Patient's had multiple ER admissions a couple of times a month for long-term basis and she has no primary care provider because she refuses to go back to [facility] Source: patient, RN/MD Exam Limitations: no limitations Home Medications & Allergies Allergies Coded Allergies: ketorolac (Verified Allergy, Severe, ANAPHYLAXIS, PT TAKES ASA AT HOME, ) ondansetron (Verified Allergy, Intermediate, RASH, 07/19/14) RASH/ HIVES exenatide (Verified Allergy, Unknown, NAUSEA, 07/19/14) NON STOP VOMITING latex (Verified Allergy, Unknown, RASH, 07/19/14) metoclopramide (Verified Allergy, Unknown, RESTLESS LEGS, 07/19/14) Past Bylobkm-Jipkae-Fgqgwk Hx Patient Social History Marrital Status: single Employed/Student: unemployed Alcohol Use: Rarely Uses Smoking Status: Former Smoker (30 pack year smoke history, quit smoking this week, but she thinks she will continue because she lives with smokers) Respiratory Hx Respiratory Disorders: No Cardiovascular Hx Cardiovascular Disorders: No Neurological Hx Neurological Disorders: No Genitourinary Hx Genitourinary Disorders: No Gastrointestinal Hx Gastrointestinal Disorders: Yes Gastrointestinal Disorders: Gastroesophageal Reflux, Chronic Constipation Musculoskeletal Hx Musculoskeletal Disorders: Yes Musculoskeletal Disorders: Chronic Back Pain Endocrine Hx Endocrine Disorders: Yes Endocrine Disorders: Diabetes, Insulin dep HEENT HX ENT Disorders: No Cancer Hx Cancer: No Psychosocial Hx Psychiatric Problems: Yes Behavioral Health Disorders: Anxiety Integumentary HX Skin/Integumentary Disorder: No Family Medical History Family Hx: Cancer of mouth 19 FATHER ( of esophogeal cancer.) Cardiovascular disease 19 MOTHER G8 BROTHER Completed stroke 19 FATHER G8 BROTHER Diabetes mellitus G8 BROTHER FH: lung cancer 19 MOTHER Hypertension 19 FATHER Kidney disease 19 FATHER Myocardial infarction 19 MOTHER G8 BROTHER Respiratory disorder No Family History of: AIDS Review of Systems ROS-Unable to Obtain: see detailed ROS Constitutional: see HPI Physical Exam Physical Exam Vital Signs Vital Sign - Last 12Hours 11/30/16 11/30/16 08:44 21:00 Temp 96.7 Pulse 90 Resp 18 B/P 157/83 Pulse Ox 97 O2 Delivery Room Air O2 Flow Rate 2.00 General Appearance: No Apparent Distress WD/WN Chronically ill Obese Eyes: Bilateral Eye Normal Inspection, Bilateral Eye PERRL HEENT: PERRL/EOMI Normal ENT Inspection Pharynx Normal Neck: Full Range of Motion Normal Inspection Non Tender Supple Carotid Bruit Respiratory: Chest Non Tender Lungs Clear No Accessory Muscle Use No Respiratory Distress Crackles Cardiovascular: Regular Rate, Rhythm No Edema No Gallop No JVD No Murmur Normal Peripheral Pulses Gastrointestinal: Normal Bowel Sounds No Organomegaly No Pulsatile Mass Non Tender Soft Back: Normal Inspection No CVA Tenderness No Vertebral Tenderness Extremity: Normal Capillary Refill Normal Inspection Normal Range of Motion Non Tender No Calf Tenderness No Pedal Edema Neurologic/Psychiatric: Alert Oriented x3 No Motor/Sensory Deficits Normal Mood/Affect Skin: Normal Color Warm/Dry Lymphatic: No Adenopathy Results Results/Procedures Lab Laboratory Tests 11/30/16 13:00 12/01/16 06:19 Assessment/Plan Admission Diagnosis Severe hyperglycemia Diabetic gastroparesis Chronic pain Acute renal failure Assessment and Plan gentle IV fluids Port placement for long-term access Insulin Home meds ALEX DE MED STUDENT Nov 30, 2016 14:33 AZEEM MELVIN DO Dec 01, 2016 11:33
[2016-11-30] MEDS ORDERED: CATHETER FLUSH 10 ML SYR IV PRN (16:30)
[2016-11-30] MEDS ORDERED: FLU TRIvalent (5 YOA+) 2016-17 (AFLURIA) 0.5 ML IM ONE (17:00)
[2016-11-30] MEDS: NS IV 1000 ML 1,000 ML IV SCH ×2 (17:30→23:10)
[2016-11-30] MEDS: diphenhydrAMINE 50 MG/ML INJ (BENADRYL) IV PRN (18:26)
[2016-11-30] MEDS: PROMETHAZINE INJ 25 MG/ML (PHENERGAN) AMP IV PRN (18:26)
[2016-11-30] MEDS: inSUlin (REGULAR) HUMAN 1 UNIT/0.01 ML (CHARGE PER UNIT) SC SCH (18:42)
[2016-11-30 20:03] VITALS: BP 119/93
[2016-11-30] MEDS: ATORVASTATIN 20 MG (LIPITOR) TABLET PO SCH (21:00)
[2016-11-30] MEDS: GABAPENTIN 300 MG (NEURONTIN) CAP PO SCH (21:00)
[2016-11-30] MEDS: inSUlin DETERMIR 1 UNIT/0.01 ML (LEVEMIR) CHARGE PER UNIT SQ SCH (21:00)
[2016-11-30] MEDS: traZODone 50 MG (DESYREL) TAB PO SCH (21:00)
[2016-12-01 00:15] VITALS: BP 118/67
[2016-12-01] MEDS: NS IV 1000 ML 1,000 ML IV SCH ×4 (00:34→22:06)
[2016-12-01] MEDS: diphenhydrAMINE 50 MG/ML INJ (BENADRYL) IV PRN ×4 (00:34→19:45)
[2016-12-01] MEDS: PROMETHAZINE INJ 25 MG/ML (PHENERGAN) AMP IV PRN ×4 (00:34→19:45)
[2016-12-01] MEDS: HYDROcodone/APAP 5 MG/325 MG (LORTAB) TAB PO SCH ×5 (01:32→19:46)
[2016-12-01 04:10] VITALS: BP 121/60
[2016-12-01 06:32] LABS: BASOPHILS # (AUTO) 0.1 10^3/uL (0.0-0.1); BASOPHILS % (AUTO) 1 % (0-10); EOSINOPHILS # (AUTO) 0.5 10^3/uL (0.0-0.3); EOSINOPHILS % (AUTO) 4 % (0-10); LYMPHOCYTES # (AUTO) 3.8 X 10^3 (1.0-4.0); LYMPHOCYTES % (AUTO) 33 % (12-44); MEAN CORPUSCULAR HEMOGLOBIN 30 PG (25-34); MEAN CORPUSCULAR HGB CONC 35 G/DL (32-36); MEAN CORPUSCULAR VOLUME 84 FL (80-99); MEAN PLATELET VOLUME 10.7 FL (7.4-10.4); MONOCYTES # (AUTO) 0.6 X 10^3 (0.0-1.0); MONOCYTES % (AUTO) 5 % (0-12); NEUTROPHILS # (AUTO) 6.8 X 10^3 (1.8-7.8); NEUTROPHILS % (AUTO) 58 % (42-75); PLATELET COUNT 200 10^3/uL (130-400); RED BLOOD COUNT 4.26 10^6/uL (4.35-5.85); RED CELL DISTRIBUTION WIDTH 12.9 % (10.0-14.5); WHITE BLOOD COUNT 11.7 10^3/uL (4.3-11.0)
[2016-12-01 06:48] LABS: ALANINE AMINOTRANSFERASE 6 U/L (0-55); ALBUMIN 3.6 G/DL (3.2-4.5); ANION GAP 7 MMOL/L (5-14); ASPARTATE AMINO TRANSFERASE 9 U/L (5-34); BILIRUBIN,TOTAL 0.5 MG/DL (0.1-1.0); BLOOD UREA NITROGEN 25 MG/DL (7-18); BUN/CREATININE RATIO 27; CALCIUM 8.4 MG/DL (8.5-10.1); CARBON DIOXIDE 21 MMOL/L (21-32); CHLORIDE 110 MMOL/L (98-107); CREATININE SERUM 0.92 MG/DL (0.60-1.30); GFR ESTIMATED > 60; GLUCOSE 220 MG/DL (70-105); POTASSIUM 3.9 MMOL/L (3.6-5.0); SODIUM 138 MMOL/L (135-145); TOTAL PROTEIN 6.1 G/DL (6.4-8.2)
[2016-12-01] MEDS: inSUlin (REGULAR) HUMAN 1 UNIT/0.01 ML (CHARGE PER UNIT) SC SCH ×4 (07:02→20:41)
--- NOTE | 2016-12-01 07:39 | Progress Note-Pre Operative ---
Pre-Operative Progress Note H&P Reviewed The H&P was reviewed, patient examined and no changes noted. Date H&P Reviewed: Dec 01, 2016 Time H&P Reviewed: 07:39 Pre-Operative Diagnosis: poor venous access ANNE MARIE PORTILLO MD Dec 01, 2016 07:39
--- NOTE | 2016-12-01 07:39 | Progress Note-Standard ---
Standard Progress Note Progress Notes/Assess & Plan Progress/Assessment & Plan 12/01/16:asked by Dr. Celine Sadler to place an [id number], to address long- term venous access. Procedure in details explained and the patient is in agreement. Scheduled for Wednesday the Final Diagnosis poor venous access. Diabetes ANNE MARIE PORTILLO MD Dec 01, 2016 07:39
[2016-12-01] MEDS ORDERED: ceFAZolin INJECTION 1,000 MG in NORMAL SALINE (BAXTER MINI) 50 ML IV ONE (07:45)
[2016-12-01 08:00] VITALS: BP 114/62
[2016-12-01] MEDS: GABAPENTIN 300 MG (NEURONTIN) CAP PO SCH ×3 (08:44→20:42)
[2016-12-01] MEDS: amLODIPine 5 MG (NORVASC) TAB PO SCH (08:44)
[2016-12-01] MEDS: inSUlin DETERMIR 1 UNIT/0.01 ML (LEVEMIR) CHARGE PER UNIT SQ SCH ×2 (08:44→20:41)
[2016-12-01] MEDS: ASPIRIN E.C. 81 MG (ECOTRIN) TAB PO SCH (08:44)
[2016-12-01] MEDS: PANTOPRAZOLE 20 MG TABLET (PROTONIX) PO SCH (08:46)
[2016-12-01] MEDS ORDERED: OMEPRAZOLE 20 MG (PriLOSEC) CAP NON-FORMULARY PO SCH (09:00)
[2016-12-01] MEDS ORDERED: AMLO5TAB2 PO (09:37)
[2016-12-01] MEDS ORDERED: ATOR20TA66 PO (09:37)
[2016-12-01] MEDS ORDERED: FLUT1BLS IH (09:44)
--- NOTE | 2016-12-01 10:34 | Progress Note-Hospitalist ---
ALEX DE MED STUDENT 12/01/16 1034: Progress Note HPI/CC on Admission CC: high blood sugar S: Ms. Urbano continues to improve. Her blood sugar improved to 220 this morning form >800 yesterday. She continues to be nauseas but has not vomited since before coming to the hospital. She reports that the Phenergan is helping some with this. She continues to have a clear liquid diet and is doing well. She has had some loose stools today. Otherwise, she continues to have her same chronic back pain. We discussed getting a port placed by Dr. Ashley today or tomorrow and she is in agreement with this plan. O: vitals are within normal limits labs reviewed and there is improved in her WBC with a drop to 11.7 and her blood sugar as discussed above RRR, lungs CTAB, abdomen soft/nontender, no edema on extremities, A&Ox3, normal strength and sensation Progress Notes/Assess & Plan Date Seen 12/01/16 Admission Dx/Process hyperglycemia, LANE, hyponatremia Diagonsis/Assessment & Plan 56yo poorly controlled diabetic with blood sugar >800 without ketones in the urine. 1. hyperglycemia, DM II -continue current insulin regimen -ADAT -obtain PCP for DM management as outpatient- social work is working on this, patient does not want to go back to [facility] 2. LANE -creatinine improved to 0.92 from 1.5 yesterday -likely prerenal in setting of poor fluid intake, polyuria, and hyperglycemia -continue IVF today -will continue to follow labs 3. hyponatremia 4. leukocytosis -will continue to follow, likely stress related -improved today 5. CAD -continue home meds 6. HTN -continue home meds 7. neuropathy -continue home dose of gabapentin 8. Degenerative disc disease -continue home dose of tramadol for back pain 9. access to care -patient currently without PCP, will need social work consult 10. tobacco use AZEEM MELVIN DO 12/01/16 1135: Progress Note Progress Notes/Assess & Plan Diagonsis/Assessment & Plan Patient doing much better Understands why I am not been to be managing pain issues since she has a chronic pain specialist and she was not admitted for pain she was admitted for hyperglycemia and nausea and acute renal failure and she understands the plan Reviewed labs found creatinine now back to normal but needs [place]ong port placement for access long-term KRUMSICK,ALEX MED STUDENT Dec 01, 2016 10:34 AZEEM MELVIN DO Dec 01, 2016 11:35
[2016-12-01 12:00] VITALS: BP 142/82
[2016-12-01 16:50] VITALS: BP 138/67
[2016-12-01 20:00] VITALS: BP 126/71
[2016-12-01] MEDS: ATORVASTATIN 20 MG (LIPITOR) TABLET PO SCH (20:42)
[2016-12-01] MEDS: traZODone 50 MG (DESYREL) TAB PO SCH (20:42)
[2016-12-02] VITALS (7 sets, daily range): BP systolic 110–176; BP diastolic 63–77
[2016-12-02] MEDS: HYDROcodone/APAP 5 MG/325 MG (LORTAB) TAB PO SCH ×3 (01:37→12:07)
[2016-12-02] MEDS: diphenhydrAMINE 50 MG/ML INJ (BENADRYL) IV PRN ×3 (01:42→16:09)
[2016-12-02] MEDS: PROMETHAZINE INJ 25 MG/ML (PHENERGAN) AMP IV PRN ×3 (01:42→16:09)
[2016-12-02] MEDS: NS IV 1000 ML 1,000 ML IV SCH ×2 (04:50→12:07)
[2016-12-02 06:10] LABS: BASOPHILS # (AUTO) 0.1 10^3/uL (0.0-0.1); BASOPHILS % (AUTO) 1 % (0-10); EOSINOPHILS # (AUTO) 0.5 10^3/uL (0.0-0.3); EOSINOPHILS % (AUTO) 5 % (0-10); LYMPHOCYTES # (AUTO) 3.5 X 10^3 (1.0-4.0); LYMPHOCYTES % (AUTO) 36 % (12-44); MEAN CORPUSCULAR HEMOGLOBIN 30 PG (25-34); MEAN CORPUSCULAR HGB CONC 35 G/DL (32-36); MEAN CORPUSCULAR VOLUME 86 FL (80-99); MEAN PLATELET VOLUME 10.4 FL (7.4-10.4); MONOCYTES # (AUTO) 0.5 X 10^3 (0.0-1.0); MONOCYTES % (AUTO) 5 % (0-12); NEUTROPHILS # (AUTO) 5.2 X 10^3 (1.8-7.8); NEUTROPHILS % (AUTO) 53 % (42-75); PLATELET COUNT 175 10^3/uL (130-400); RED BLOOD COUNT 3.94 10^6/uL (4.35-5.85); RED CELL DISTRIBUTION WIDTH 12.8 % (10.0-14.5); WHITE BLOOD COUNT 9.8 10^3/uL (4.3-11.0)
[2016-12-02 06:28] LABS: ALANINE AMINOTRANSFERASE 8 U/L (0-55); ALBUMIN 3.4 G/DL (3.2-4.5); ANION GAP 7 MMOL/L (5-14); ASPARTATE AMINO TRANSFERASE 8 U/L (5-34); BILIRUBIN,TOTAL 0.2 MG/DL (0.1-1.0); BLOOD UREA NITROGEN 18 MG/DL (7-18); BUN/CREATININE RATIO 21; CARBON DIOXIDE 18 MMOL/L (21-32); CHLORIDE 112 MMOL/L (98-107); CREATININE SERUM 0.85 MG/DL (0.60-1.30); GFR ESTIMATED > 60; GLUCOSE 196 MG/DL (70-105); POTASSIUM 3.8 MMOL/L (3.6-5.0); SODIUM 137 MMOL/L (135-145); TOTAL PROTEIN 5.8 G/DL (6.4-8.2)
[2016-12-02] MEDS: inSUlin (REGULAR) HUMAN 1 UNIT/0.01 ML (CHARGE PER UNIT) SC SCH ×3 (06:46→14:30)
[2016-12-02] MEDS: PANTOPRAZOLE 20 MG TABLET (PROTONIX) PO SCH (06:46)
[2016-12-02] MEDS: amLODIPine 5 MG (NORVASC) TAB PO SCH (08:21)
[2016-12-02] MEDS: ASPIRIN E.C. 81 MG (ECOTRIN) TAB PO SCH (08:22)
[2016-12-02] MEDS: GABAPENTIN 300 MG (NEURONTIN) CAP PO SCH ×2 (08:23→12:08)
[2016-12-02] MEDS ORDERED: ceFAZolin INJECTION 1,000 MG in NORMAL SALINE (BAXTER MINI) 50 ML IV NR (10:30)
--- NOTE | 2016-12-02 10:46 | Discharge Summary-Hospitalist ---
ALEX DE MED STUDENT 12/02/16 1046: Diagnosis/Chief Complaint Date of Admission Nov 30, 2016 at 13:55 Date of Discharge 12/02/16 Discharge Date: Dec 02, 2016 Admission Diagnosis Severe hyperglycemia Diabetic gastroparesis Chronic pain Acute renal failure Discharge Diagnosis diabetes, poorly controlled gastroparesis chronic pain acute renal failure, resolved Reason Hospital Visit/Course Mrs. Urbano is a 56yoF with poorly controlled diabetes who was admitted on with a blood sugar >800. She very dehydrated at this time due to polyuria as well as nausea and vomiting. It was extremely difficult to obtain vascular access in the ED. Eventually a PICC line was placed for IVF. She was given insulin. Her blood sugars improved during her stay. Her creatinine also improved to her baseline. On 12/02/16 a port was placed for definitive access, as she frequently needs IV fluids and medication, and has little/no peripheral access. After the procedure she was discharged home. No medication changes were done at the time of discharge. She currently does not have a primary care provider. It was stressed to her the importance of seeing more than just specialists, and she needs somebody to coordinate her care as she has extremely poor controlled diabetes. Discharge Summary Discharge Physical Examination Allergies: Coded Allergies: ketorolac (Verified Allergy, Severe, ANAPHYLAXIS, PT TAKES ASA AT HOME, ) ondansetron (Verified Allergy, Intermediate, RASH, 07/19/14) RASH/ HIVES exenatide (Verified Allergy, Unknown, NAUSEA, 07/19/14) NON STOP VOMITING latex (Verified Allergy, Unknown, RASH, 07/19/14) metoclopramide (Verified Allergy, Unknown, RESTLESS LEGS, 07/19/14) Vitals & I&Os Vital Signs Date Time Temp Pulse Resp B/P Pulse Ox O2 Delivery O2 Flow Rate FiO2 12/02/16 04:00 97.7 70 16 111/70 95 Room Air 12/01/16 16:57 2.00 Hospital Course Labs (last 24 hrs) Laboratory Tests 12/01/16 15:18: Glucometer 118H 12/01/16 20:34: Glucometer 252H 12/02/16 05:09: Glucometer 236H 12/02/16 06:05: Alanine Aminotransferase (ALT/SGPT) 8, Albumin 3.4, Alkaline Phosphatase 59, Anion Gap 7, Aspartate Amino Transf (AST/SGOT) 8, BUN/Creatinine Ratio 21, Basophils # (Auto) 0.1, Basophils (%) (Auto) 1, Blood Urea Nitrogen 18, Calcium Level 8.0L, Carbon Dioxide Level 18L, Chloride Level 112H, Creatinine 0.85, Eosinophils # (Auto) 0.5H, Eosinophils (%) (Auto) 5, Estimat Glomerular Filtration Rate > 60, Glucose Level 196H, Hematocrit 34L, Hemoglobin 11.7, Lymphocytes # (Auto) 3.5, Lymphocytes (%) (Auto) 36, Mean Corpuscular Hemoglobin 30, Mean Corpuscular Hemoglobin Concent 35, Mean Corpuscular Volume 86, Mean Platelet Volume 10.4, Monocytes # (Auto) 0.5, Monocytes (%) (Auto) 5, Neutrophils # (Auto) 5.2, Neutrophils (%) (Auto) 53, Platelet Count 175, Potassium Level 3.8, Red Blood Count 3.94L, Red Cell Distribution Width 12.8, Sodium Level 137, Total Bilirubin 0.2, Total Protein 5.8L, White Blood Count 9.8 Pending Labs Laboratory Tests 12/02/16 05:09: Glucometer 236 12/02/16 06:05: Alanine Aminotransferase (ALT/SGPT) 8, Albumin 3.4, Alkaline Phosphatase 59, Anion Gap 7, Aspartate Amino Transf (AST/SGOT) 8, BUN/Creatinine Ratio 21, Basophils # (Auto) 0.1, Basophils (%) (Auto) 1, Blood Urea Nitrogen 18, Calcium Level 8.0, Carbon Dioxide Level 18, Chloride Level 112, Creatinine 0.85, Eosinophils # (Auto) 0.5, Eosinophils (%) (Auto) 5, Estimat Glomerular Filtration Rate > 60, Glucose Level 196, Hematocrit 34, Hemoglobin 11.7, Lymphocytes # (Auto) 3.5, Lymphocytes (%) (Auto) 36, Mean Corpuscular Hemoglobin 30, Mean Corpuscular Hemoglobin Concent 35, Mean Corpuscular Volume 86, Mean Platelet Volume 10.4, Monocytes # (Auto) 0.5, Monocytes (%) (Auto) 5, Neutrophils # (Auto) 5.2, Neutrophils (%) (Auto) 53, Platelet Count 175, Potassium Level 3.8, Red Blood Count 3.94, Red Cell Distribution Width 12.8, Sodium Level 137, Total Bilirubin 0.2, Total Protein 5.8, White Blood Count 9.8 Discharge Home Medications: Active Scripts Active Reported Breo Ellipta 200-25 Mcg INH (Fluticasone/Vilanterol) 1 Each Blst.w.dev 1 Puff IH DAILY Atorvastatin Calcium 20 Mg Tablet 20 Mg PO HS LAST FILLED 09/07/16 #30 Amlodipine Besylate 5 Mg Tablet 5 Mg PO DAILY LAST FILLED 08/04/16 #90 Metformin HCl 500 Mg Tablet 500 Mg PO BID LAST FILLED 09/07/16 #60 Benzonatate 100 Mg Capsule 100 Mg PO TID PRN Tramadol HCl 50 Mg Tablet 100 Mg PO TID TAKES 2 (50 MG) TABLETS Omeprazole 20 Mg Capsule. 20 Mg PO DAILY Gabapentin 300 Mg Capsule 600 Mg PO TID TAKES 2 (300 MG) CAPSULES Humalog Kwikpen (Insulin Lispro) 100 Unit/1 Ml Insuln.pen 0 SQ AC PER SLIDING SCALE 1 UNIT PER 3 CARBOHYDRATES 1 UNIT FOR EVERY 15 > 150 Levemir Flextouch (Insulin Detemir) 100 Unit/1 Ml Insuln.pen 50 Units SQ BID Independence Aspirin (Aspirin) 81 Mg Tablet. 81 Mg PO DAILY Instructions to patient/family Please see electonic discharge instructions given to patient. Clinical Quality Measures DVT/VTE Risk/Contraindication: Risk Factor Score Per Nursin RFS Level Per Nursing on Admit: 4+=Very High AZEEM MELVIN DO 12/02/16 1139: Diagnosis/Chief Complaint Discharge Diagnosis Poor venous access requiring port placement by Dr. Ashley prior to discharge Overt noncompliance Reason Hospital Visit/Course manager administrative: Sugar currently 154 RN will give 15 Levemir with water and pain pill. hospital course: Patient had an uneventful hospital course she was admitted due to severe hyperglycemia of 850 and acute renal failure 1.54. She is had overt noncompliance with multiple providers and medical management leaving her with only multiple specialist to care for her and no primary care provider since [facility] had fired her cousin of pain medication contract issues. Patient was treated with IV fluids and anti-emetics but gastroparesis is certainly the cause of the recurrent nausea and vomiting but she is allergic to Reglan so that was difficult to manage and itself. Poor venous access in this patient that is very noncompliant and will have multiple ER visits and multiple admissions until the end of her premature end of her life so had port placed by Dr. Ashley for easier access in medical management scenarios. Overall she was counseled to obtain primary care provider and she said she would look into that and was discharged without event on all of her same medications by Dr. Ashley after port placement was uncomplicated. Discharge Summary Discharge Physical Examination Allergies: Coded Allergies: ketorolac (Verified Allergy, Severe, ANAPHYLAXIS, PT TAKES ASA AT HOME, ) ondansetron (Verified Allergy, Intermediate, RASH, 07/19/14) RASH/ HIVES exenatide (Verified Allergy, Unknown, NAUSEA, 07/19/14) NON STOP VOMITING latex (Verified Allergy, Unknown, RASH, 07/19/14) metoclopramide (Verified Allergy, Unknown, RESTLESS LEGS, 07/19/14) Vitals & I&Os Vital Signs Date Time Temp Pulse Resp B/P Pulse Ox O2 Delivery O2 Flow Rate FiO2 12/02/16 09:00 Room Air 12/02/16 04:00 97.7 70 16 111/70 95 12/01/16 16:57 2.00 Hospital Course Labs (last 24 hrs) Laboratory Tests 12/01/16 15:18: Glucometer 118H 12/01/16 20:34: Glucometer 252H 12/02/16 05:09: Glucometer 236H 12/02/16 06:05: Alanine Aminotransferase (ALT/SGPT) 8, Albumin 3.4, Alkaline Phosphatase 59, Anion Gap 7, Aspartate Amino Transf (AST/SGOT) 8, BUN/Creatinine Ratio 21, Basophils # (Auto) 0.1, Basophils (%) (Auto) 1, Blood Urea Nitrogen 18, Calcium Level 8.0L, Carbon Dioxide Level 18L, Chloride Level 112H, Creatinine 0.85, Eosinophils # (Auto) 0.5H, Eosinophils (%) (Auto) 5, Estimat Glomerular Filtration Rate > 60, Glucose Level 196H, Hematocrit 34L, Hemoglobin 11.7, Lymphocytes # (Auto) 3.5, Lymphocytes (%) (Auto) 36, Mean Corpuscular Hemoglobin 30, Mean Corpuscular Hemoglobin Concent 35, Mean Corpuscular Volume 86, Mean Platelet Volume 10.4, Monocytes # (Auto) 0.5, Monocytes (%) (Auto) 5, Neutrophils # (Auto) 5.2, Neutrophils (%) (Auto) 53, Platelet Count 175, Potassium Level 3.8, Red Blood Count 3.94L, Red Cell Distribution Width 12.8, Sodium Level 137, Total Bilirubin 0.2, Total Protein 5.8L, White Blood Count 9.8 12/02/16 09:52: Glucometer 144H Pending Labs Laboratory Tests 12/02/16 06:05: Alanine Aminotransferase (ALT/SGPT) 8, Albumin 3.4, Alkaline Phosphatase 59, Anion Gap 7, Aspartate Amino Transf (AST/SGOT) 8, BUN/Creatinine Ratio 21, Basophils # (Auto) 0.1, Basophils (%) (Auto) 1, Blood Urea Nitrogen 18, Calcium Level 8.0, Carbon Dioxide Level 18, Chloride Level 112, Creatinine 0.85, Eosinophils # (Auto) 0.5, Eosinophils (%) (Auto) 5, Estimat Glomerular Filtration Rate > 60, Glucose Level 196, Hematocrit 34, Hemoglobin 11.7, Lymphocytes # (Auto) 3.5, Lymphocytes (%) (Auto) 36, Mean Corpuscular Hemoglobin 30, Mean Corpuscular Hemoglobin Concent 35, Mean Corpuscular Volume 86, Mean Platelet Volume 10.4, Monocytes # (Auto) 0.5, Monocytes (%) (Auto) 5, Neutrophils # (Auto) 5.2, Neutrophils (%) (Auto) 53, Platelet Count 175, Potassium Level 3.8, Red Blood Count 3.94, Red Cell Distribution Width 12.8, Sodium Level 137, Total Bilirubin 0.2, Total Protein 5.8, White Blood Count 9.8 12/02/16 09:52: Glucometer 144 Discharge Home Medications: Active Scripts Active Hydrocodon -Acetaminophen 5-325 (Hydrocodone/Acetaminophen) 1 Each Tablet 1-2 Tab PO 4-6HR PRN Reported Breo Ellipta 200-25 Mcg INH (Fluticasone/Vilanterol) 1 Each Blst.w.dev 1 Puff IH DAILY Atorvastatin Calcium 20 Mg Tablet 20 Mg PO HS LAST FILLED 09/07/16 #30 Amlodipine Besylate 5 Mg Tablet 5 Mg PO DAILY LAST FILLED 08/04/16 #90 Metformin HCl 500 Mg Tablet 500 Mg PO BID LAST FILLED 09/07/16 #60 Benzonatate 100 Mg Capsule 100 Mg PO TID PRN Tramadol HCl 50 Mg Tablet 100 Mg PO TID TAKES 2 (50 MG) TABLETS Omeprazole 20 Mg Capsule. 20 Mg PO DAILY Gabapentin 300 Mg Capsule 600 Mg PO TID TAKES 2 (300 MG) CAPSULES Humalog Kwikpen (Insulin Lispro) 100 Unit/1 Ml Insuln.pen 0 SQ AC PER SLIDING SCALE 1 UNIT PER 3 CARBOHYDRATES 1 UNIT FOR EVERY 15 > 150 Levemir Flextouch (Insulin Detemir) 100 Unit/1 Ml Insuln.pen 50 Units SQ BID Independence Aspirin (Aspirin) 81 Mg Tablet. 81 Mg PO DAILY ALEX DE MED STUDENT Dec 02, 2016 10:46 AZEEM MELVIN DO Dec 02, 2016 11:39
[2016-12-02] MEDS ORDERED: HEParin (CENTRAL IV FLUSH) 500 UNIT/5 ML SYR ONE ×2 (10:48→13:03)
[2016-12-02] MEDS ORDERED: BUP/EPI 0.25% 1:200,000 (MARCAINE) 30 ML VIAL ONE (10:48)
[2016-12-02] MEDS: inSUlin DETERMIR 1 UNIT/0.01 ML (LEVEMIR) CHARGE PER UNIT SQ SCH (11:08)
[2016-12-02] MEDS ORDERED: inSUlin DETERMIR 1 UNIT/0.01 ML (LEVEMIR) CHARGE PER UNIT SQ ONE (11:15)
[2016-12-02] MEDS ORDERED: SEVOFLURANE (ULTANE) 15 ML INHAL SOLN ONE ×2 (12:05→13:10)
[2016-12-02] MEDS ORDERED: LACTATED RINGERS 1,000 ML IV ONE (12:05)
[2016-12-02] MEDS ORDERED: LIDOCAINE PF 2% 10 ML (XYLOCAINE) AMP ONE (12:05)
[2016-12-02] MEDS ORDERED: fentaNYL INJECTION 100 MCG/2 ML AMP ONE (12:05)
[2016-12-02] MEDS ORDERED: proPOfol 200 MG/20 ML (DIPRIVAN) VIAL IV ONE (12:05)
[2016-12-02] MEDS ORDERED: MIDAZOLAM 2 MG/2 ML (VERSED) VIAL ONE (12:05)
[2016-12-02] MEDS ORDERED: LACTATED RINGERS 1,000 ML IV SCH (12:30)
[2016-12-02] MEDS ORDERED: HYDR-3812 PO (13:35)
--- NOTE | 2016-12-02 13:35 | Progress Note-Post Operative ---
Post-Operative Progess Note Pre-Operative Diagnosis poor venous access Post-Operative Diagnosis same Post-Op Procedure Note Date of Procedure: Dec 02, 2016 Name of Procedure: Uunemb-c-Pgeb placement Anesthesia Type Gen. ANNE MARIE PORTILLO MD Dec 02, 2016 1:34 pm
--- NOTE | 2016-12-02 13:37 | Discharge Inst-Simple/Standard ---
Discharge Inst-Standard Discharge Medications New, Converted or Re-Newed RX: RX on Chart Patient Instructions/Follow Up Plan of Care/Instructions/FU: dressing over the Lscgwu-p-Vrdu and the neck to be off in 48 hours. May use the port any time. Please remove the PICC line before discharge. To follow up with her primary physician Activity as Tolerated: Yes Discharge Diet: ANNE MARIE Thompson MD Dec 02, 2016 1:36 pm
[2016-12-02] MEDS ORDERED: morphine INJ 10 MG/ML 1ML (SYR OR VIAL) IVP PRN (13:45)
--- NOTE | 2016-12-02 14:31 | Diagnostic Imaging Report ---
CLINICAL INDICATION: Port placement by Dr. Ashley. EXAM: This is a limited fluoroscopic x-ray of the upper chest/neck region. COMPARISON: Chest x-ray dated 11/30/2016. FINDINGS AND IMPRESSION: Fluoroscopic images of the upper chest and neck region were performed for port placement by Dr. Ashley. Please see the surgeon's report for more detail. Fluoroscopy was provided for surgeons and a total of 49 seconds was used. Dictated by: Dictated on workstation # [id number]
--- NOTE | 2016-12-02 14:41 | OPERATIVE REPORT ---
PROCEDURE PHYSICIAN: ANNE MARIE PORTILLO DATE OF PROCEDURE: 12/02/2016 PREOPERATIVE DIAGNOSIS: 1. Poor venous access. 2. Diabetes mellitus. POSTOPERATIVE DIAGNOSIS: 1. Poor venous access. 2. Diabetes mellitus. OPERATION: 1. Ultrasound localization of right internal jugular vein. 2. Intraoperative fluoroscopy. 3. Fxysfb-h-Rdhn placement. SURGEON: Dion ANESTHESIA: General anesthesia. BLOOD LOSS: Minimal. FLUIDS: 800 mL crystalloids. TYPE OF WOUND: Type I (clean wound). INDICATION FOR THE PROCEDURE: This lady with diabetes mellitus has poor venous access and therefore placing an Cbxdbb-f-Doih was felt to be reasonable. Informed consent was obtained after reviewing the operative details and complications of hematoma, malfunction of the catheter, requiring replacement and bacteremia. DESCRIPTION OF PROCEDURE: She was placed supine on the operating table and general anesthesia induced using a laryngeal mask airway. A gram of Ancef was administered intravenously as a prophylaxis against wound infection. Sequential compression devices were placed around her legs to minimize the risk of venous thrombosis. Her neck and upper chest were prepared and draped in the usual sterile manner. Right internal jugular vein was localized using a 10 MHz ultrasound probe and a floppy guidewire introduced into the heart, under fluoroscopy. A subcutaneous pocket was created over the infraclavicular fossa and the Jose catheter brought into the neck, in a retrograde fashion. It was then advanced into the heart, under fluoroscopy, using the peel-away sheath. The catheter was then pulled back to the superior vena cava under fluoroscopy and connected to the Nqxywp-r-Npbx, that had been primed with heparinized saline. I was able to aspirate and flush the system without any difficulty. The port was then secured to the pectoralis tissue, using 2-0 Prolene sutures. The incision was then closed using 3-0 Vicryl for the subcutaneous tissue and 4-0 Vicryl for skin, in a subcuticular fashion. Preemptive analgesia was established using 0.25% Marcaine with epinephrine. She tolerated the procedure well, was extubated in the operating room and taken to the recovery room in a stable condition. [place], sponges, and instruments were correct at the end of operation. Job ID: [id number] Dictated Date: 12/02/2016 13:28:20 Yard Demurrage Clerk Date: 12/02/2016 14:36:29 / andrea LAURENT
[2016-12-02] MEDS ORDERED: FLU TRIvalent (5 YOA+) 2016-17 (AFLURIA) 0.5 ML IM ONE (16:15)
--- NOTE | 2016-12-04 13:06 | Physician Query-General Query ---
Physician Query-General Query to Physician: Please clarify if the diagnosis of uncontrolled type 2 DM with hyperosmolar nonketotic hyperglycemia, diagnosis given by ER physician, should be a coded diagnosis on the account thank you PHYSICIAN RESPONSE: Based on the clinical findings in the record, please respond to the query above on this document as an addendum. Possible, probable, or questionable diagnosis can be coded for INPATIENTS ONLY. Physician Response: Physician Response hyperosmolar non-ketotic present on admit If you have questions please contact: Manager Ct: Ext: Thank you for your time and cooperation. Clinical Specialty Transformer Assembler/Manager Ct This is a permanent part of the medical record YANY ISSA Dec 04, 2016 13:06 AZEEM MELVIN DO Dec 05, 2016 21:09
== END 2016-12-02 16:45 | disposition home or self-care (01) | DRG 673 ==
LOC: EDUNIT# 08:40 → ER 08:42 → 4TH 13:55
PROVIDERS: ADMIT Internal Medicine; ATTEND Surgery
PROC: 02HV33Z Insertion of Infusion Device into Superior Vena Cava, Percutaneous Approach (ICD-10-PCS; 2016-12-02)
PROC: 0JH60XZ Insertion of Tunneled Vascular Access Device into Chest Subcutaneous Tissue and Fascia, Open Approach (ICD-10-PCS; principal; 2016-12-02 12:36)
DX: N17.9 Acute kidney failure, unspecified (principal); E11.65 Type 2 diabetes mellitus with hyperglycemia; E11.00 Type 2 diabetes mellitus with hyperosmolarity without nonketotic hyperglycemic-hyperosmolar coma (NKHHC); E87.1 Hypo-osmolality and hyponatremia; E11.43 Type 2 diabetes mellitus with diabetic autonomic (poly)neuropathy; E11.42 Type 2 diabetes mellitus with diabetic polyneuropathy; F17.210 Nicotine dependence, cigarettes, uncomplicated; K21.9 Gastro-esophageal reflux disease without esophagitis; E66.9 Obesity, unspecified; Z68.33 Body mass index [BMI] 33.0-33.9, adult; I25.10 Atherosclerotic heart disease of native coronary artery without angina pectoris; I11.0 Hypertensive heart disease with heart failure; L40.50 Arthropathic psoriasis, unspecified; M79.7 Fibromyalgia; E78.00 Pure hypercholesterolemia, unspecified; Z79.4 Long term (current) use of insulin; Z95.5 Presence of coronary angioplasty implant and graft; Z86.718 Personal history of other venous thrombosis and embolism; Z23 Encounter for immunization
CPT/HCPCS: 36415; 36569; 71010; 71020; 76937; 80053; 81000; 82150; 82962; 83690; 84484; 85025; 85610; 85730; 87081; 93005; 93041; 96361; 96374; 96375

== ENCOUNTER 2016-12-06 11:55 | Emergency (ER) | payer MEDICARE ==
[~2016-12-06] VITALS: Ht 152.4 cm; Wt 78.0 kg
[~2016-12-06 11:55] MED LIST changes: +FLUT1BLS IH; +HYDR-3812 PO
[2016-12-06] MEDS ORDERED: AMOX-358 PO (12:52)
[2016-12-06] MEDS ORDERED: TR1C15 TP (12:52)
--- NOTE | 2016-12-06 12:52 | ED Integumentary General ---
General Stated Complaint: INCISION SITE PAINFUL RASH Source: patient Exam Limitations: no limitations History of Present Illness Time seen by provider: 12:50 Initial Comments To ER with c/o rash over her right groshong port that was placed a few days ago. No fevers or chills Timing/Duration: just prior to arrival Severity: moderate Associated Symptoms: denies symptoms Allergies and Home Medications Allergies Coded Allergies: ketorolac (Verified Allergy, Severe, ANAPHYLAXIS, PT TAKES ASA AT HOME, ) ondansetron (Verified Allergy, Intermediate, RASH, 07/19/14) RASH/ HIVES exenatide (Verified Allergy, Unknown, NAUSEA, 07/19/14) NON STOP VOMITING latex (Verified Allergy, Unknown, RASH, 07/19/14) metoclopramide (Verified Allergy, Unknown, RESTLESS LEGS, 07/19/14) Home Medications Amlodipine Besylate 5 Mg Tablet 5 MG PO DAILY (Reported) LAST FILLED 08/04/16 #90 Aspirin 81 Mg Tablet.dr 81 MG PO DAILY (Reported) Atorvastatin Calcium 20 Mg Tablet 20 MG PO HS (Reported) LAST FILLED 09/07/16 #30 Benzonatate 100 Mg Capsule 100 MG PO TID PRN PRN COUGH (Reported) Fluticasone/Vilanterol 1 Each Blst.w.dev 1 PUFF IH DAILY (Reported) Gabapentin 300 Mg Capsule 600 MG PO TID (Reported) TAKES 2 (300 MG) CAPSULES Hydrocodone/Acetaminophen 1 Each Tablet #20 1-2 TAB PO 4-6HR PRN PRN PAIN Prescribed by: ANNE MARIE PORTILLO on 12/02/16 1335 Insulin Detemir 100 Unit/1 Ml Insuln.pen 50 UNITS SQ BID (Reported) Insulin Lispro 100 Unit/1 Ml Insuln.pen 0 SQ AC (Reported) PER SLIDING SCALE 1 UNIT PER 3 CARBOHYDRATES 1 UNIT FOR EVERY 15 > 150 Metformin HCl 500 Mg Tablet 500 MG PO BID (Reported) LAST FILLED 09/07/16 #60 Omeprazole 20 Mg Capsule.dr 20 MG PO DAILY (Reported) Tramadol HCl 50 Mg Tablet 100 MG PO TID (Reported) TAKES 2 (50 MG) TABLETS Constitutional: see HPINo chills, No fever EENTM: see HPI Respiratory: no symptoms reported Cardiovascular: no symptoms reported Genitourinary: no symptoms reported Musculoskeletal: no symptoms reported Skin: see HPI Psychiatric/Neurological: No Symptoms Reported Endocrine: No Symptoms Reported Past Hrttfwv-Zgphgh-Piqsoa Hx Patient Social History Type Used: Cigarettes Former Smoker/When Quit: Recent Foreign Travel: No Contact w/Someone Who Travel: No Recent Hopitalizations: No Immunizations Up To Date Tetanus Booster (TDap): Less than 5yrs PED Vaccines UTD: No Date of Pneumonia Vaccine: Dec 12, 2013 Date of Influenza Vaccine: Sep 20, 2015 Seasonal Allergies Seasonal Allergies: No Surgeries HX Surgeries: Yes Surgeries: Cardiac, Coronary Stent, Ear Surgery, Gallbladder, Orthopedic, Renal Respiratory Hx Respiratory Disorders: No Cardiovascular Hx Cardiac Disorders: No Cardiac Disorders: Chronic Edema/Swelling, Coronary Artery Disease, Deep Vein Thrombosis, High Cholesterol, Hypertension Neurological Hx Neurological Disorders: No Neurological Disorders: Neuropathy 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 System Hx 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 Disorders: No Sexually Transmitted Disease: No HIV/AIDS: No 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 Disorders: Denies PLANT GENERAL MANAGER History: 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 Genitourinary Hx Genitourinary Disorders: No Genitourinary Disorders: Bladder Infection, Kidney Stones, Renal Failure Gastrointestinal Hx Gastrointestinal Disorders: Yes Gastrointestinal Disorders: Gastroesophageal Reflux, Chronic Constipation Musculoskeletal Hx Musculoskeletal Disorders: Yes Musculoskeletal Disorders: Chronic Back Pain Endocrine Hx Endocrine Disorders: Yes Endocrine Disorders: Diabetes, Insulin dep HEENT HX ENT Disorders: No HEENT Disorders: Chronic Ear Infection Loss of Vision: Denies Hearing Impairment: Hard of Hearing Cancer Hx Cancer: No Psychosocial Hx Psychiatric Problems: Yes Behavioral Health Disorders: Anxiety Integumentary HX Skin/Integumentary Disorder: No Skin/Integumentary Disorders: Psoriasis Blood Transfusions Hx Blood Disorders: No Adverse Reaction to a Blood Tr: No Family Medical History Significant Family History: No Pertinent Family Hx Family Medial History: Cancer of mouth 19 FATHER ( of esophogeal cancer.) Cardiovascular disease 19 MOTHER G8 BROTHER Completed stroke 19 FATHER G8 BROTHER Diabetes mellitus G8 BROTHER FH: lung cancer 19 MOTHER Hypertension 19 FATHER Kidney disease 19 FATHER Myocardial infarction 19 MOTHER G8 BROTHER Respiratory disorder No Family History of: AIDS Physical Exam Vital Signs Capillary Refill : General Appearance: WD/WN no apparent distress HEENT: PERRL/EOMI normal ENT inspection Neck: non-tender full range of motion Respiratory: no respiratory distress no accessory muscle use Neurologic/Psychiatric: alert normal mood/affect oriented x 3 Skin: normal color warm/dry Skin Problem Location: other (rash over the groshong. Appears superficial and NOT as a cellulitis) Departure Impression Impression: Primary Impression: Contact dermatitis Qualified Code: L24.89 - Irritant contact dermatitis due to other agents Disposition: HOME, SELF-CARE Condition: Stable Departure-Patient Inst. Decision time for Depature: 12:51 Referrals: NO,LOCAL PHYSICIAN (PCP/Family) Primary Care Physician Patient Instructions: Skin Rash Add. Discharge Instructions: 1. medication as directed 2. See your doctor later this week Scripts Triamcinolone Acet (Triamcinolone Acetonide)15 Gm Cr15 Gm TP BID 5 Days Prov:JR MARIE APRN 12/06/16 Amoxicillin/Potassium Clav (Augmentin 875-125 Tablet)1 Each Tablet1 Each PO BID #14 TAB Prov:JR MARIE APRN 12/06/16 JR MARIE APRN Dec 06, 2016 12:52
[2016-12-06 12:59] VITALS: BP 165/88
[2016-12-30] MEDS ORDERED: IBUP-2055 PO (10:19)
== END 2016-12-06 12:59 | disposition home or self-care (01) ==
LOC: EDUNIT# 11:55 → ER 11:57
DX: L23.9 Allergic contact dermatitis, unspecified cause (principal); I10 Essential (primary) hypertension; E11.9 Type 2 diabetes mellitus without complications; Z79.82 Long term (current) use of aspirin; Z79.84 Long term (current) use of oral hypoglycemic drugs; Z79.4 Long term (current) use of insulin; Z79.899 Other long term (current) drug therapy; Z95.5 Presence of coronary angioplasty implant and graft; Z86.718 Personal history of other venous thrombosis and embolism
CPT/HCPCS: 99283

== ENCOUNTER 2016-12-25 14:39 | Emergency (ER) | payer MEDICARE ==
[~2016-12-25] VITALS: Ht 152.4 cm; Wt 78.5 kg
[~2016-12-25 14:39] MED LIST changes: +AMOX-358 PO; +TR1C15 TP
[2016-12-25] MEDS ORDERED: PROCHLORPERAZINE 10 MG/2ML INJ (COMPAZINE) IV ONE (15:00)
[2016-12-25] MEDS ORDERED: diphenhydrAMINE 50 MG/ML INJ (BENADRYL) IVP ONE (15:00)
[2016-12-25] MEDS ORDERED: NS IV 1000 ML 1,000 ML IV SCH (15:00)
--- NOTE | 2016-12-25 15:01 | ED Headache ---
General Stated Complaint: MIGRAINE Source: patient Exam Limitations: no limitations History of Present Illness Time seen by provider: 14:58 Initial Comments This 56-year-old white female presents with a complaint of progressive headache for the last 3 days. The patient has had no associated fever, stiff neck, chills, or lateralizing or localizing neurologic complaints. She denies similar headaches in the past. There is a family history of migraines. Allergies and Home Medications Allergies Coded Allergies: ketorolac (Verified Allergy, Severe, ANAPHYLAXIS, PT TAKES ASA AT HOME, ) ondansetron (Verified Allergy, Intermediate, RASH, 07/19/14) RASH/ HIVES exenatide (Verified Allergy, Unknown, NAUSEA, 07/19/14) NON STOP VOMITING latex (Verified Allergy, Unknown, RASH, 07/19/14) metoclopramide (Verified Allergy, Unknown, RESTLESS LEGS, 07/19/14) Home Medications Amlodipine Besylate 5 Mg Tablet 5 MG PO DAILY (Reported) LAST FILLED 08/04/16 #90 Amoxicillin/Potassium Clav 1 Each Tablet #14 1 EACH PO BID Prescribed by: JR MARIE on 12/06/16 1252 Aspirin 81 Mg Tablet.dr 81 MG PO DAILY (Reported) Atorvastatin Calcium 20 Mg Tablet 20 MG PO HS (Reported) LAST FILLED 09/07/16 #30 Benzonatate 100 Mg Capsule 100 MG PO TID PRN PRN COUGH (Reported) Fluticasone/Vilanterol 1 Each Blst.w.dev 1 PUFF IH DAILY (Reported) Gabapentin 300 Mg Capsule 600 MG PO TID (Reported) TAKES 2 (300 MG) CAPSULES Hydrocodone/Acetaminophen 1 Each Tablet #20 1-2 TAB PO 4-6HR PRN PRN PAIN Prescribed by: ANNE MARIE PORTILLO on 12/02/16 1335 Insulin Detemir 100 Unit/1 Ml Insuln.pen 50 UNITS SQ BID (Reported) Insulin Lispro 100 Unit/1 Ml Insuln.pen 0 SQ AC (Reported) PER SLIDING SCALE 1 UNIT PER 3 CARBOHYDRATES 1 UNIT FOR EVERY 15 > 150 Metformin HCl 500 Mg Tablet 500 MG PO BID (Reported) LAST FILLED 09/07/16 #60 Omeprazole 20 Mg Capsule.dr 20 MG PO DAILY (Reported) Tramadol HCl 50 Mg Tablet 100 MG PO TID (Reported) TAKES 2 (50 MG) TABLETS Triamcinolone Acet 15 Gm Cr 5Days 15 GM TP BID Prescribed by: JR MARIE on 12/06/16 1252 Constitutional: No chills, No fever Eyes: Denies Blurred Vision, Denies Photophobia, Other (global headache.) Ears, Nose, Mouth, Throat: denies ear discharge, denies epistaxis Respiratory: No cough Cardiovascular: No chest pain Gastrointestinal: No abdominal pain, No diarrhea, nauseaNo vomiting Genitourinary: no symptoms reported Musculoskeletal: No back pain Skin: No rash Psychiatric/Neurological: No Symptoms Reported Past Imxgepp-Gceuyi-Vjjspv Hx Patient Social History Type Used: Cigarettes Former Smoker/When Quit: Recent Foreign Travel: No Contact w/Someone Who Travel: No Recent Hopitalizations: Yes (PORT INSERTION) Immunizations Up To Date Tetanus Booster (TDap): Less than 5yrs PED Vaccines UTD: No Date of Pneumonia Vaccine: Dec 12, 2013 Date of Influenza Vaccine: Sep 20, 2015 Seasonal Allergies Seasonal Allergies: No Surgeries HX Surgeries: Yes Surgeries: Cardiac, Coronary Stent, Ear Surgery, Gallbladder, Orthopedic, Renal Respiratory Hx Respiratory Disorders: No Cardiovascular Hx Cardiac Disorders: No Cardiac Disorders: Chronic Edema/Swelling, Coronary Artery Disease, Deep Vein Thrombosis, High Cholesterol, Hypertension Neurological Hx Neurological Disorders: No Neurological Disorders: Neuropathy 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 System Hx 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 Disorders: No Sexually Transmitted Disease: No HIV/AIDS: No 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 Disorders: Denies HAND SPINNER History: Menopausal Genitourinary Hx Genitourinary Disorders: No Genitourinary Disorders: Bladder Infection, Kidney Stones, Renal Failure Gastrointestinal Hx Gastrointestinal Disorders: Yes Gastrointestinal Disorders: Gastroesophageal Reflux, Chronic Constipation Musculoskeletal Hx Musculoskeletal Disorders: Yes Musculoskeletal Disorders: Chronic Back Pain Endocrine Hx Endocrine Disorders: Yes Endocrine Disorders: Diabetes, Insulin dep HEENT HX ENT Disorders: No HEENT Disorders: Chronic Ear Infection Loss of Vision: Denies Hearing Impairment: Hard of Hearing Cancer Hx Cancer: No Psychosocial Hx Psychiatric Problems: Yes Behavioral Health Disorders: Anxiety Integumentary HX Skin/Integumentary Disorder: No Skin/Integumentary Disorders: Psoriasis Blood Transfusions Hx Blood Disorders: No Adverse Reaction to a Blood Tr: No Reviewed Nursing Assessment Reviewed/Agree w Nursing PMH: Yes Family Medical History Significant Family History: No Pertinent Family Hx Family Medial History: Cancer of mouth 19 FATHER ( of esophogeal cancer.) Cardiovascular disease 19 MOTHER G8 BROTHER Completed stroke 19 FATHER G8 BROTHER Diabetes mellitus G8 BROTHER FH: lung cancer 19 MOTHER Hypertension 19 FATHER Kidney disease 19 FATHER Myocardial infarction 19 MOTHER G8 BROTHER Respiratory disorder No Family History of: AIDS Physical Exam Vital Signs Vital Sign - Last 12Hours 12/25/16 14:55 Temp 98.0 Pulse 99 Resp 16 B/P 148/86 Capillary Refill : General Appearance: WD/WN mild distress HEENT: normal ENT inspection Neck: non-tender full range of motion supple normal inspection Cardiovascular: regular rate, rhythm no murmur Respiratory: lungs clear normal breath sounds Gastrointestinal: normal bowel sounds non tender soft Back: normal inspection Extremities: normal range of motion normal inspection Psychiatric: alert oriented x 3 Crainal Nerves: normal speech Motor/Sensory: no motor deficit no sensory deficit Skin: normal color warm/dry Progress/Results/Core Measures Results/Orders Lab Results Laboratory Tests Test 12/25/16 15:00 Range/Units Alanine Aminotransferase (ALT/SGPT) 10 0-55 U/L Albumin 4.2 3.2-4.5 G/DL Alkaline Phosphatase 88 40-136 U/L Anion Gap 13 5-14 MMOL/L Aspartate Amino Transf (AST/SGOT) 10 5-34 U/L BUN/Creatinine Ratio 13 Basophils # (Auto) 0.1 0.0-0.1 10^3/uL Basophils (%) (Auto) 1 0-10 % Blood Urea Nitrogen 12 7-18 MG/DL Calcium Level 9.8 8.5-10.1 MG/DL Carbon Dioxide Level 23 21-32 MMOL/L Chloride Level 104 98-107 MMOL/L Creatinine 0.89 0.60-1.30 MG/DL Eosinophils # (Auto) 0.1 0.0-0.3 10^3/uL Eosinophils (%) (Auto) 1 0-10 % Estimat Glomerular Filtration Rate > 60 Glucose Level 213 H 70-105 MG/DL Hematocrit 42 35-52 % Hemoglobin 14.6 11.5-16.0 G/DL Lymphocytes # (Auto) 3.1 1.0-4.0 X 10^3 Lymphocytes (%) (Auto) 27 12-44 % Mean Corpuscular Hemoglobin 30 25-34 PG Mean Corpuscular Hemoglobin Concent 35 32-36 G/DL Mean Corpuscular Volume 85 80-99 FL Mean Platelet Volume 9.9 7.4-10.4 FL Monocytes # (Auto) 0.5 0.0-1.0 X 10^3 Monocytes (%) (Auto) 5 0-12 % Neutrophils # (Auto) 7.8 1.8-7.8 X 10^3 Neutrophils (%) (Auto) 67 42-75 % Platelet Count 281 130-400 10^3/uL Potassium Level 3.9 3.6-5.0 MMOL/L Red Blood Count 4.92 4.35-5.85 10^6/uL Red Cell Distribution Width 13.3 10.0-14.5 % Sodium Level 140 135-145 MMOL/L Total Bilirubin 0.4 0.1-1.0 MG/DL Total Protein 7.1 6.4-8.2 G/DL White Blood Count 11.6 H 4.3-11.0 10^3/uL My Orders Orders-QUIN SIDDIQI MD Comprehensive Metabolic Panel (12/25/16 14:54) Cbc With Automated Diff (12/25/16 14:54) Ct Head Wo (12/25/16 14:54) Ns Iv 1000 Ml (Sodium Chloride 0.9%) (12/25/16 15:00) Prochlorperazine Injection (Compazine In (12/25/16 15:00) Diphenhydramine Injection (Benadryl Inje (12/25/16 15:00) Fentanyl Injection (Sublimaze Injection (12/25/16 15:45) Medications Given in ED Current Medications Medications Dose Ordered Sig/Jackie Route Start Time Stop Time Status Last Admin Dose Admin Diphenhydramine HCl 50 mg ONCE ONCE IVP 12/25/16 15:00 12/25/16 15:01 DC 12/25/16 15:14 50 MG Fentanyl Citrate 100 mcg ONCE PRN IVP 12/25/16 15:45 12/25/16 15:49 100 MCG Prochlorperazine Edisylate 10 mg ONCE ONCE IV 12/25/16 15:00 12/25/16 15:01 DC 12/25/16 15:15 10 MG Vital Signs/I&O Vital Sign - Last 12Hours 12/25/16 14:55 Temp 98.0 Pulse 99 Resp 16 B/P 148/86 Progress Note : Time: 16:15 Progress Note The patient's headache abated with IV Compazine, Benadryl, and fentanyl. Departure Impression Impression: Primary Impression: Headache Qualified Code: R51 - Headache Disposition: 01 HOME, SELF-CARE Condition: Improved Departure-Patient Inst. Decision time for Depature: 16:16 Referrals: [facility],LOCAL PHYSICIAN (PCP) Primary Care Physician Patient Instructions: Headache, Adult (DC) Add. Discharge Instructions: Follow up with [facility] [place]. Rest of home. Return if any problems or questions. QUIN SIDDIQI MD Dec 25, 2016 15:01
[2016-12-25 15:16] LABS: BASOPHILS # (AUTO) 0.1 10^3/uL (0.0-0.1); BASOPHILS % (AUTO) 1 % (0-10); EOSINOPHILS # (AUTO) 0.1 10^3/uL (0.0-0.3); EOSINOPHILS % (AUTO) 1 % (0-10); LYMPHOCYTES # (AUTO) 3.1 X 10^3 (1.0-4.0); LYMPHOCYTES % (AUTO) 27 % (12-44); MEAN CORPUSCULAR HEMOGLOBIN 30 PG (25-34); MEAN CORPUSCULAR HGB CONC 35 G/DL (32-36); MEAN CORPUSCULAR VOLUME 85 FL (80-99); MEAN PLATELET VOLUME 9.9 FL (7.4-10.4); MONOCYTES # (AUTO) 0.5 X 10^3 (0.0-1.0); MONOCYTES % (AUTO) 5 % (0-12); NEUTROPHILS # (AUTO) 7.8 X 10^3 (1.8-7.8); NEUTROPHILS % (AUTO) 67 % (42-75); PLATELET COUNT 281 10^3/uL (130-400); RED BLOOD COUNT 4.92 10^6/uL (4.35-5.85); RED CELL DISTRIBUTION WIDTH 13.3 % (10.0-14.5); WHITE BLOOD COUNT 11.6 10^3/uL (4.3-11.0)
[2016-12-25 15:37] LABS: ALANINE AMINOTRANSFERASE 10 U/L (0-55); ALBUMIN 4.2 G/DL (3.2-4.5); ANION GAP 13 MMOL/L (5-14); ASPARTATE AMINO TRANSFERASE 10 U/L (5-34); BILIRUBIN,TOTAL 0.4 MG/DL (0.1-1.0); BLOOD UREA NITROGEN 12 MG/DL (7-18); BUN/CREATININE RATIO 13; CALCIUM 9.8 MG/DL (8.5-10.1); CARBON DIOXIDE 23 MMOL/L (21-32); CHLORIDE 104 MMOL/L (98-107); CREATININE SERUM 0.89 MG/DL (0.60-1.30); GFR ESTIMATED > 60; GLUCOSE 213 MG/DL (70-105); POTASSIUM 3.9 MMOL/L (3.6-5.0); SODIUM 140 MMOL/L (135-145); TOTAL PROTEIN 7.1 G/DL (6.4-8.2)
--- NOTE | 2016-12-25 15:43 | Diagnostic Imaging Report ---
PROCEDURE: CT head without contrast. TECHNIQUE: Multiple contiguous axial images were obtained through the brain without the use of intravenous contrast. INDICATION: Headache x3 days. FINDINGS: Cortical gyral pattern appears normal. Ventricles are not dilated. There is no mass effect. There is no intracranial hemorrhage. No extra-axial fluid collections. The basal cisterns are clear. No evidence of pituitary mass. The CP angles appear normal. Mastoid air cells and paranasal sinuses are clear. IMPRESSION: No acute intracranial abnormalities. Dictated by: Dictated on workstation # [id number]
[2016-12-25] MEDS ORDERED: fentaNYL INJECTION 100 MCG/2 ML AMP IVP PRN (15:45)
[2016-12-25 16:35] VITALS: BP 154/76
[2016-12-30] MEDS ORDERED: IBUP-2055 PO (10:19)
== END 2016-12-25 16:40 | disposition home or self-care (01) ==
LOC: EDUNIT# 14:39 → ER 14:40
DX: R51 Headache (principal); I10 Essential (primary) hypertension; E11.9 Type 2 diabetes mellitus without complications; I25.10 Atherosclerotic heart disease of native coronary artery without angina pectoris; Z79.4 Long term (current) use of insulin; Z79.84 Long term (current) use of oral hypoglycemic drugs; Z79.899 Other long term (current) drug therapy; Z95.5 Presence of coronary angioplasty implant and graft
CPT/HCPCS: 36415; 70450; 80053; 85025; 96361; 96374; 96375

== ENCOUNTER 2016-12-29 09:57 | Observation (INO) | payer MEDICARE ==
[2016-12-29] VITALS (8 sets, daily range): BP systolic 128–172; BP diastolic 53–83
[~2016-12-29] VITALS: Ht 152.4 cm; Wt 79.4 kg
[2016-12-29] MEDS ORDERED: NS IV 500 ML 500 ML IV ONE (10:18)
[2016-12-29] MEDS ORDERED: diphenhydrAMINE 50 MG/ML INJ (BENADRYL) IVP ONE (10:30)
[2016-12-29] MEDS ORDERED: PROMETHAZINE INJ 25 MG/ML (PHENERGAN) AMP IVP ONE ×2 (10:30→12:00)
[2016-12-29] MEDS ORDERED: RT-ALBUTEROL/IPRATROPIUM 3 ML (DUONEB) VIAL INH ONE (10:30)
--- NOTE | 2016-12-29 10:56 | Diagnostic Imaging Report ---
INDICATION: Hyperglycemia, chest pain. COMPARISON: 11/30/2016. FINDINGS: Right IJ is at the SVC. The lungs are clear. There is no effusion or pneumothorax. No free air beneath the diaphragms. IMPRESSION: No acute appearing abnormality. Dictated by: Dictated on workstation # [id number]
[2016-12-29 11:11] LABS: BASOPHILS # (AUTO) 0.1 10^3/uL (0.0-0.1); BASOPHILS % (AUTO) 1 % (0-10); EOSINOPHILS # (AUTO) 0.2 10^3/uL (0.0-0.3); EOSINOPHILS % (AUTO) 2 % (0-10); LYMPHOCYTES # (AUTO) 2.1 X 10^3 (1.0-4.0); LYMPHOCYTES % (AUTO) 24 % (12-44); MEAN CORPUSCULAR HEMOGLOBIN 30 PG (25-34); MEAN CORPUSCULAR HGB CONC 35 G/DL (32-36); MEAN CORPUSCULAR VOLUME 86 FL (80-99); MEAN PLATELET VOLUME 10.2 FL (7.4-10.4); MONOCYTES # (AUTO) 0.3 X 10^3 (0.0-1.0); MONOCYTES % (AUTO) 4 % (0-12); NEUTROPHILS % (AUTO) 69 % (42-75); PLATELET COUNT 179 10^3/uL (130-400); RED BLOOD COUNT 3.91 10^6/uL (4.35-5.85); RED CELL DISTRIBUTION WIDTH 12.9 % (10.0-14.5); WHITE BLOOD COUNT 8.7 10^3/uL (4.3-11.0)
[2016-12-29 11:40] LABS: ALANINE AMINOTRANSFERASE 8 U/L (0-55); ALBUMIN 3.3 G/DL (3.2-4.5); ANION GAP 7 MMOL/L (5-14); ASPARTATE AMINO TRANSFERASE 9 U/L (5-34); BILIRUBIN,TOTAL 0.3 MG/DL (0.1-1.0); BLOOD UREA NITROGEN 14 MG/DL (7-18); BUN/CREATININE RATIO 17; CALCIUM 7.7 MG/DL (8.5-10.1); CARBON DIOXIDE 20 MMOL/L (21-32); CHLORIDE 109 MMOL/L (98-107); CREATININE SERUM 0.81 MG/DL (0.60-1.30); GFR ESTIMATED > 60; MAGNESIUM 1.5 MG/DL (1.8-2.4); POTASSIUM 3.5 MMOL/L (3.6-5.0); SODIUM 136 MMOL/L (135-145); TOTAL PROTEIN 5.4 G/DL (6.4-8.2)
[2016-12-29 11:43] LABS: GLUCOSE 407 MG/DL (70-105)
[2016-12-29 11:48] LABS: MYOGLOBIN SERUM 25.1 NG/ML (10.0-92.0)
[2016-12-29] MEDS ORDERED: fentaNYL INJECTION 100 MCG/2 ML AMP IVP ONE (12:00)
[2016-12-29] MEDS ORDERED: inSUlin (REGULAR) HUMAN 1 UNIT/0.01 ML (CHARGE PER UNIT) IV ONE (12:00)
--- NOTE | 2016-12-29 12:45 | ED Chest Pain ---
General Chief Complaint: Chest Pain Stated Complaint: CHEST PAIN ELEV BS Nursing Triage Note: c/o headache which started last night. This morning, pt developed chest pain. Claims to have vomited up meds this morning. Nursing Sepsis Screen: No Definite Risk Source: patient, EMS, old records Exam Limitations: no limitations History of Present Illness Time seen by provider: 10:10 Initial Comments This 56-year-old woman presents to the emergency room with complaints of chest pain times one hour, nausea vomiting, elevated blood sugar, cough, and wheezing. Her chest pain is characterized as a dull ache or pressure that radiates from the left neck down across the center of her chest in a seatbelt fashion. She had a heart catheterization performed by Dr. Cobb in February of last year demonstrating a patent LAD stent and otherwise mild coronary artery disease. Pain is somewhat positional, but she cannot identify any other triggers or alleviating factors. She does have a history of chronic bronchitis. She has been seen by [facility] in the past but does not want to continue care with them. She has not established with another provider yet. 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 Allergies and Home Medications Allergies Coded Allergies: ketorolac (Verified Allergy, Severe, ANAPHYLAXIS, PT TAKES ASA AT HOME, ) ondansetron (Verified Allergy, Intermediate, RASH, 07/19/14) RASH/ HIVES exenatide (Verified Allergy, Unknown, NAUSEA, 07/19/14) NON STOP VOMITING latex (Verified Allergy, Unknown, RASH, 07/19/14) metoclopramide (Verified Allergy, Unknown, RESTLESS LEGS, 07/19/14) Home Medications Amlodipine Besylate 5 Mg Tablet 5 MG PO DAILY (Reported) LAST FILLED 08/04/16 #90 Amoxicillin/Potassium Clav 1 Each Tablet #14 1 EACH PO BID Prescribed by: JR MARIE on 12/06/16 1252 Aspirin 81 Mg Tablet.dr 81 MG PO DAILY (Reported) Atorvastatin Calcium 20 Mg Tablet 20 MG PO HS (Reported) LAST FILLED 09/07/16 #30 Benzonatate 100 Mg Capsule 100 MG PO TID PRN PRN COUGH (Reported) Fluticasone/Vilanterol 1 Each Blst.w.dev 1 PUFF IH DAILY (Reported) Gabapentin 300 Mg Capsule 600 MG PO TID (Reported) TAKES 2 (300 MG) CAPSULES Hydrocodone/Acetaminophen 1 Each Tablet #20 1-2 TAB PO 4-6HR PRN PRN PAIN Prescribed by: ANNE AMRIE PORTILLO on 12/02/16 1335 Insulin Detemir 100 Unit/1 Ml Insuln.pen 50 UNITS SQ BID (Reported) Insulin Lispro 100 Unit/1 Ml Insuln.pen 0 SQ AC (Reported) PER SLIDING SCALE 1 UNIT PER 3 CARBOHYDRATES 1 UNIT FOR EVERY 15 > 150 Metformin HCl 500 Mg Tablet 500 MG PO BID (Reported) LAST FILLED 09/07/16 #60 Omeprazole 20 Mg Capsule.dr 20 MG PO DAILY (Reported) Tramadol HCl 50 Mg Tablet 100 MG PO TID (Reported) TAKES 2 (50 MG) TABLETS Triamcinolone Acet 15 Gm Cr 5Days 15 GM TP BID Prescribed by: JR MARIE on 12/06/16 1252 Review of Systems Constitutional: no symptoms reported EENTM: No Symptoms Reported Respiratory: See HPI Cardiovascular: See HPI Gastrointestinal: See HPI Genitourinary: No Symptoms Reported Musculoskeletal: no symptoms reported Skin: no symptoms reported Psychiatric/Neurological: No Symptoms Reported Endocrine: See HPI Past Iazlqmp-Vunuuv-Dqqtrj Hx Patient Social History Alcohol Use: Denies Use Recreational Drug Use: No Type Used: Cigarettes Former Smoker/When Quit: Recent Foreign Travel: No Contact w/Someone Who Travel: No Recent Infectious Disease Expo: No Recent Hopitalizations: Yes (PORT INSERTION) Immunizations Up To Date Tetanus Booster (TDap): Less than 5yrs PED Vaccines UTD: No Date of Pneumonia Vaccine: Dec 12, 2013 Date of Influenza Vaccine: Nov 23, 2016 Seasonal Allergies Seasonal Allergies: No Surgeries HX Surgeries: Yes Surgeries: Cardiac, Coronary Stent, Ear Surgery, Gallbladder, Orthopedic, Renal Respiratory Hx Respiratory Disorders: Yes Respiratory Disorders: Chronic Bronchitis Cardiovascular Hx Cardiac Disorders: No Cardiac Disorders: Chronic Edema/Swelling, Coronary Artery Disease, Deep Vein Thrombosis, High Cholesterol, Hypertension Neurological Hx Neurological Disorders: No Neurological Disorders: Neuropathy 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 System : No Hx 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 Disorders: No Sexually Transmitted Disease: No HIV/AIDS: No 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 Disorders: 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 Genitourinary Hx Genitourinary Disorders: No Genitourinary Disorders: Bladder Infection, Kidney Stones, Renal Failure Gastrointestinal Hx Gastrointestinal Disorders: Yes Gastrointestinal Disorders: Gastroesophageal Reflux, Chronic Constipation Musculoskeletal Hx Musculoskeletal Disorders: Yes Musculoskeletal Disorders: Chronic Back Pain Endocrine Hx Endocrine Disorders: Yes Endocrine Disorders: Diabetes, Insulin dep HEENT HX ENT Disorders: No HEENT Disorders: Chronic Ear Infection Loss of Vision: Denies Hearing Impairment: Hard of Hearing Cancer Hx Cancer: No Psychosocial Hx Psychiatric Problems: Yes Behavioral Health Disorders: Anxiety Integumentary HX Skin/Integumentary Disorder: No Skin/Integumentary Disorders: Psoriasis Blood Transfusions Hx Blood Disorders: No Adverse Reaction to a Blood Tr: No Family Medical History Significant Family History: No Pertinent Family Hx Family Medial History: Cancer of mouth 19 FATHER ( of esophogeal cancer.) Cardiovascular disease 19 MOTHER G8 BROTHER Completed stroke 19 FATHER G8 BROTHER Diabetes mellitus G8 BROTHER FH: lung cancer 19 MOTHER Hypertension 19 FATHER Kidney disease 19 FATHER Myocardial infarction 19 MOTHER G8 BROTHER Respiratory disorder No Family History of: AIDS Physical Exam Vital Signs Vital Sign - Last 12Hours 12/29/16 09:57 Temp 97.8 Pulse 80 Resp 16 B/P 103/64 Pulse Ox 93 O2 Delivery Room Air Capillary Refill : Less Than 3 Seconds General Appearance: WD/WN Mild Distress HEENT: PERRL/EOMI Normal ENT Inspection Neck: Normal Inspection Respiratory: Lungs Clear Normal Breath Sounds No Accessory Muscle Use No Respiratory Distress Other (there is some tenderness at the lower portion of the sternum which does not necessarily correlate well with location of her pain) Cardiovascular: Regular Rate, Rhythm No Edema No Murmur Gastrointestinal: Normal Bowel Sounds Non Tender Soft Extremity: Normal Inspection No Pedal Edema Calf Tenderness (left leg, negative Lora) Neurologic/Psychiatric: Alert Oriented x3 No Motor/Sensory Deficits 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 Norm as Tested Skin: Normal Color Warm/Dry Progress/Results/Core Measures Results/Orders Lab Results Laboratory Tests Test 12/29/16 11:00 Range/Units Activated Partial Thromboplast Time 23 L 24-35 SEC Alanine Aminotransferase (ALT/SGPT) 8 0-55 U/L Albumin 3.3 3.2-4.5 G/DL Alkaline Phosphatase 51 40-136 U/L Anion Gap 7 5-14 MMOL/L Aspartate Amino Transf (AST/SGOT) 9 5-34 U/L BUN/Creatinine Ratio 17 Basophils # (Auto) 0.1 0.0-0.1 10^3/uL Basophils (%) (Auto) 1 0-10 % Blood Urea Nitrogen 14 7-18 MG/DL Calcium Level 7.7 L 8.5-10.1 MG/DL Carbon Dioxide Level 20 L 21-32 MMOL/L Chloride Level 109 H 98-107 MMOL/L Creatinine 0.81 0.60-1.30 MG/DL D-Dimer 0.34 0.00-0.49 UG/ML Eosinophils # (Auto) 0.2 0.0-0.3 10^3/uL Eosinophils (%) (Auto) 2 0-10 % Estimat Glomerular Filtration Rate > 60 Glucose Level 407 *H 70-105 MG/DL Hematocrit 34 L 35-52 % Hemoglobin 11.7 11.5-16.0 G/DL INR Comment 1.0 0.8-1.4 Lymphocytes # (Auto) 2.1 1.0-4.0 X 10^3 Lymphocytes (%) (Auto) 24 12-44 % Magnesium Level 1.5 L 1.8-2.4 MG/DL Mean Corpuscular Hemoglobin 30 25-34 PG Mean Corpuscular Hemoglobin Concent 35 32-36 G/DL Mean Corpuscular Volume 86 80-99 FL Mean Platelet Volume 10.2 7.4-10.4 FL Monocytes # (Auto) 0.3 0.0-1.0 X 10^3 Monocytes (%) (Auto) 4 0-12 % Myoglobin 25.1 10.0-92.0 NG/ML Neutrophils # (Auto) 6.0 1.8-7.8 X 10^3 Neutrophils (%) (Auto) 69 42-75 % Platelet Count 179 130-400 10^3/uL Potassium Level 3.5 L 3.6-5.0 MMOL/L Prothrombin Time 13.0 12.2-14.7 SEC Red Blood Count 3.91 L 4.35-5.85 10^6/uL Red Cell Distribution Width 12.9 10.0-14.5 % Sodium Level 136 135-145 MMOL/L Total Bilirubin 0.3 0.1-1.0 MG/DL Total Protein 5.4 L 6.4-8.2 G/DL Troponin I < 0.30 <0.30 NG/ML White Blood Count 8.7 4.3-11.0 10^3/uL My Orders Orders-WARD MUNGUIA MD Cbc With Automated Diff (12/29/16 10:18) Magnesium (12/29/16 10:18) Ekg Tracing (12/29/16 10:18) Cardiac Profile 1 (12/29/16 10:18) Comprehensive Metabolic Panel (12/29/16 10:18) Myoglobin Serum (12/29/16 10:18) Protime With Inr (12/29/16 10:18) Partial Thromboplastin Time (12/29/16 10:18) O2 (12/29/16 10:18) Monitor-Rhythm Ecg Trace Only (12/29/16 10:18) Lipid Panel (12/30/16 06:00) Saline Lock/Iv-Start (12/29/16 10:18) Promethazine Injection (Phenergan Injec (12/29/16 10:30) Diphenhydramine Injection (Benadryl Inje (12/29/16 10:30) Ns Iv 500 Ml (Sodium Chloride 0.9%) (12/29/16 10:18) Albuterol/Ipra Inhalation Soln (Duoneb I (12/29/16 10:30) Svn Sm Volume Nebulizer Rt-Rfs (12/29/16 10:18) Chest Pa/Lat (2 View) (12/29/16 10:18) Insulin (Regular) Human (Humulin R (Per (12/29/16 12:00) Promethazine Injection (Phenergan Injec (12/29/16 12:00) Fentanyl Injection (Sublimaze Injection (12/29/16 12:00) Medications Given in ED Current Medications Medications Dose Ordered Sig/Jackie Route Start Time Stop Time Status Last Admin Dose Admin Albuterol/ Ipratropium 3 ml ONCE ONCE INH 12/29/16 10:30 12/29/16 10:31 DC 12/29/16 11:09 3 ML Diphenhydramine HCl 25 mg 25 mg ONCE ONCE IVP 12/29/16 10:30 12/29/16 10:31 DC 12/29/16 10:32 25 MG Fentanyl Citrate 50 mcg ONCE ONCE IVP 12/29/16 12:00 12/29/16 12:01 DC 12/29/16 12:13 50 MCG Insulin Human Regular 10 unit ONCE ONCE IV 12/29/16 12:00 12/29/16 12:01 DC 12/29/16 12:06 10 UNIT Promethazine HCl 12.5 mg ONCE ONCE IVP 12/29/16 10:30 12/29/16 10:31 DC 12/29/16 10:31 12.5 MG Promethazine HCl 12.5 mg ONCE ONCE IVP 12/29/16 12:00 12/29/16 12:01 DC 12/29/16 12:12 12.5 MG Sodium Chloride 500 ml @ 0 mls/hr Q0M ONCE IV 12/29/16 10:18 12/29/16 10:26 DC 12/29/16 10:32 0 MLS/HR Vital Signs/I&O Vital Sign - Last 12Hours 12/29/16 12/29/16 12/29/16 12/29/16 09:57 10:00 11:13 12:13 Temp 97.8 97.8 Pulse 80 Resp 16 B/P 103/64 Pulse Ox 93 94 O2 Delivery Room Air Room Air Blood Pressure Mean: 77 Progress Note #1: Time: 13:03 Progress Note Patient was treated with IV fluids, Phenergan, and Benadryl. Cardiac and pulmonary workup were negative. Patient stated pain did not improve with a DuoNeb treatment and treatment of nausea and vomiting. DuoNeb did resolve the wheezing. Fentanyl was then given for pain. Case was reviewed with Dr. Cobb and Dr. Berry who agrees with admission for observation given her history of coronary artery disease. 10 units of insulin was administered for the hyperglycemia. Patient later stated she had calf pain. D-dimer was added as patient has history of DVT. Progress Note #2: Time: 13:22 Progress Note D-dimer was negative. ECG Initial ECG Impression Date: Dec 29, 2016 Initial ECG Impression Time: 10:10 Initial ECG Rate: 88 Initial ECG Rhythm: Normal Sinus Comment Normal sinus rhythm with no ST elevation or depression. No abnormal intervals or axis deviation. Diagnostic Imaging Diagonstic Imaging: Xray Plain Films/CT/US/NM/MRI: chest Comments NAME: VALENTE HARPER MED REC#: [id number] PT STATUS: REG ER : 1960 PHYSICIAN: WARD MUNGUIA MD ADMIT DATE: 12/29/16/ER Draft Date of Exam:12/29/16 CHEST PA/LAT (2 VIEW) INDICATION: Hyperglycemia, chest pain. COMPARISON: 11/30/2016. FINDINGS: Right IJ is at the SVC. The lungs are clear. There is no effusion or pneumothorax. No free air beneath the diaphragms. IMPRESSION: No acute appearing abnormality. Dictated on workstation # [id number] Dict: 12/29/16 1052 Trans: 12/29/16 1056 [id number] Interpreted by: SANTOS SHELL Departure Communication Time/Spoke to Admitting Phy: 12:35 Communication Case review with Dr. Berry who would like a cardiology consultation. Dr. Cobb was consulted on her behalf. He requested no additional treatment at this moment and admission to the cardiac step down unit. Time/Spoke to Consulting Physi: 12:51 Communication/Consulting Dr. Cobb. Impression Impression: Primary Impression: Chest pain Qualified Code: R07.9 - Chest pain, unspecified Additional Impressions: Hyperglycemia Nausea and vomiting Qualified Code: R11.2 - Nausea with vomiting, unspecified COPD exacerbation Headache Qualified Code: R51 - Headache Hypomagnesemia Disposition: 09 ADMITTED INPATIENT Condition: Improved Decision to Admit Reason: Admit from ER (General) Decision to Admit/Date: Dec 29, 2016 Time/Decision to Admit Time: 12:35 Departure-Patient Inst. Referrals: NO,LOCAL PHYSICIAN (PCP/Family) Primary Care Physician WARD MUNGUIA MD Dec 29, 2016 12:45
--- NOTE | 2016-12-29 14:08 | Consultation-Cardiology ---
HPI-Cardiology Cardiology Consultation: Date of Consultation 12/29/16 Date of Admission 12-29-16 Attending Physician Jazmine Berry DO Admitting Physician Audrey,Local Physician Consulting Physician Missy Cobb MD HPI: Chief Complaint: Chest pain Ms. Harper is a 56 year old female admitted to ICU 9 from the ED. She reports she woke up this morning with a migraine. She reports productive cough at home. She reports nausea and vomiting this morning. She reports left sided neck pain that radiates across her shoulders and into her left shoulder blade. The discomfort is worse with movement and reproducible with palpation. No c/o dyspnea, palpitations, syncope or near syncope. No c/o LE edema. She is reporting discomfort of her left calf with is worse with gentle palpation. She is currently reporting a migraine. Review of Systems-Cardiology Review of Systems Constitutional: As described under HPI Eyes: No blurred vision, No drainage, No pain, No vision change Ears/Nose/Throat: No ear discharge, No ear pain, No nasal drainage, No ulcerations Respiratory: As described under HPI Cardiovascular: As described under HPI Gastrointestinal: No constipation, No diarrhea, nausea vomitingNo stool coloration changes Genitourinary: No dysuria, No discharge, No frequency, No hematuria, No urgency Musculoskeletal: joint pain Skin: No rash, No skin related problems, No ulcerations Psychiatric/Neurological: No anxiety, No depression, No focal weakness, No seizure, No syncope Hematologic: No bleeding abnormalities [id number] Hx Patient Social History Alcohol Use: Denies Use Recreational Drug Use: No Former smoker/When Quit: Type Used: Cigarettes Recent Foreign Travel: No Recent Infectious Disease Expo: No Hospitalization with Isolation: Denies Immunizations Up To Date Tetanus Booster (TDap): Less than 5yrs Date of Pneumonia Vaccine: Dec 12, 2013 Date of Influenza Vaccine: Nov 23, 2016 Past Medical History PMH As described under Assessment. Family Medical History Family Medical History: She reports her father had a stroke and high blood pressure. She reports her mother had CAD. She reports her brother has CAD, CVA and DM. Family History: 19 FATHER Cancer of mouth ( of esophogeal cancer.) Completed stroke Hypertension Kidney disease 19 MOTHER Cardiovascular disease Myocardial infarction FH: lung cancer G8 BROTHER Cardiovascular disease Diabetes mellitus Myocardial infarction Completed stroke Relation not specified for: Respiratory disorder Allergies and Home Medications Allergies Coded Allergies: ketorolac (Verified Allergy, Severe, ANAPHYLAXIS, PT TAKES ASA AT HOME, ) ondansetron (Verified Allergy, Intermediate, RASH, 07/19/14) RASH/ HIVES exenatide (Verified Allergy, Unknown, NAUSEA, 07/19/14) NON STOP VOMITING latex (Verified Allergy, Unknown, RASH, 07/19/14) metoclopramide (Verified Allergy, Unknown, RESTLESS LEGS, 07/19/14) Home Medications Amlodipine Besylate 5 Mg Tablet 5 MG PO DAILY (Reported) Aspirin 81 Mg Tablet.dr 81 MG PO DAILY (Reported) Atorvastatin Calcium 20 Mg Tablet 20 MG PO HS (Reported) Fluticasone/Vilanterol 1 Each Blst.w.dev 1 PUFF IH DAILY (Reported) Gabapentin 300 Mg Capsule 600 MG PO TID (Reported) TAKES 2 (300 MG) CAPSULES Insulin Detemir 100 Unit/1 Ml Insuln.pen 50 UNITS SQ BID (Reported) Insulin Lispro 100 Unit/1 Ml Insuln.pen 0 SQ AC (Reported) PER SLIDING SCALE 1 UNIT PER 3 CARBOHYDRATES 1 UNIT FOR EVERY 15 > 150 Omeprazole 20 Mg Capsule.dr 20 MG PO DAILY (Reported) Tramadol HCl 50 Mg Tablet 100 MG PO TID (Reported) TAKES 2 (50 MG) TABLETS Physical Exam-Cardiology Physical Exam Vital Signs/I&O Vital Sign - Last 12Hours 12/29/16 12/29/16 12/29/16 12/29/16 09:57 10:00 11:13 12:13 Temp 97.8 97.8 Pulse 80 Resp 16 B/P 103/64 Pulse Ox 93 94 O2 Delivery Room Air Room Air 12/29/16 12/29/16 12/29/16 12/29/16 12:57 13:50 14:00 14:15 Temp 97.8 99.1 Pulse 80 81 84 82 Resp 16 20 B/P 158/72 166/78 164/83 Pulse Ox 94 95 96 94 O2 Delivery Room Air Room Air Room Air 12/29/16 12/29/16 12/29/16 12/29/16 14:30 15:00 15:08 16:00 Temp 98.4 Pulse 82 76 Resp 20 B/P 149/69 153/74 Pulse Ox 96 98 94 98 O2 Delivery Room Air Room Air Room Air Room Air 12/29/16 16:00 Pulse 77 B/P 172/80 Pulse Ox 96 O2 Delivery Room Air Capillary Refill : Less Than 3 Seconds Constitutional: appears stated ageNo apparent distress, well-developed well- nourished HEENT: PERRLNo discharge, hearing is well preserved oral hygience is goodNo ulceration, No xanthelasmas are seen Neck: No carotid bruit, other (left lateral shoulder discomfort reproducible with palpation) carotid pulses are 2 + bilaterally Respiratory: No accessory muscle use, No respiratory distress, chest expansion is symmetric chest is bilaterally symmetric lungs clear to percussion lungs clear to auscultation Cardiovascular: regular rate-rhythmNo JVD, S1 and S2 systolic murmur Gastrointestinal: No tender, soft roundNo spleenomegaly Extremities: No clubbing, No cyanosis, No significant edema Neurologic/Psychiatric: alert oriented x 3 power is 5/5 both on sides Skin: No rash, No ulcerations Data Review Labs Laboratory Tests 12/29/16 11:00: Activated Partial Thromboplast Time 23L, Alanine Aminotransferase (ALT/SGPT) 8, Albumin 3.3, Alkaline Phosphatase 51, Anion Gap 7, Aspartate Amino Transf (AST/ SGOT) 9, BUN/Creatinine Ratio 17, Basophils # (Auto) 0.1, Basophils (%) (Auto) 1 , Blood Urea Nitrogen 14, Calcium Level 7.7L, Carbon Dioxide Level 20L, Chloride Level 109H, Creatinine 0.81, D-Dimer 0.34, Eosinophils # (Auto) 0.2, Eosinophils (%) (Auto) 2, Estimat Glomerular Filtration Rate > 60, Glucose Level 407*H, Hematocrit 34L, Hemoglobin 11.7, INR Comment 1.0, Lymphocytes # ( Auto) 2.1, Lymphocytes (%) (Auto) 24, Magnesium Level 1.5L, Mean Corpuscular Hemoglobin 30, Mean Corpuscular Hemoglobin Concent 35, Mean Corpuscular Volume 86, Mean Platelet Volume 10.2, Monocytes # (Auto) 0.3, Monocytes (%) (Auto) 4, Myoglobin 25.1, Neutrophils # (Auto) 6.0, Neutrophils (%) (Auto) 69, Platelet Count 179, Potassium Level 3.5L, Prothrombin Time 13.0, Red Blood Count 3.91L, Red Cell Distribution Width 12.9, Sodium Level 136, Total Bilirubin 0.3, Total Protein 5.4L, Troponin I < 0.30, White Blood Count 8.7 12/29/16 14:10: Glucometer 291H Radiology NAME: VALENTE HARPER [facility] REC#: [id number] PT STATUS: REG ER : 1960 PHYSICIAN: WARD MUNGUIA MD ADMIT DATE: 12/29/16/ER Draft Date of Exam:12/29/16 CHEST PA/LAT (2 VIEW) INDICATION: Hyperglycemia, chest pain. COMPARISON: 11/30/2016. FINDINGS: Right IJ is at the SVC. The lungs are clear. There is no effusion or pneumothorax. No free air beneath the diaphragms. IMPRESSION: No acute appearing abnormality. Dictated on workstation # [id number] Dict: 12/29/16 1052 Trans: 12/29/16 1056 [id number] Interpreted by: SANTOS SHELL Electronically signed by: ECG Impression ECG Initial ECG Rhythm: Normal Sinus A/P-Cardiology Assessment/Admission Diagnosis Chest/shoulder discomfort reproducible with palpation - symptoms consistent with musculoskeletal Migraines being managed by medical services CAD. Underwent stenting of mid LAD Resolute Integrity 2.5x[address] Cohen on ; LVEF was 60% and there was 40--50% mid RCA stenosis. Subsequent cath by Dr Ibrahim on 07/16/15 (for recurrent chest pain) showed that the stent was patent and RCA disease was mild and LVEDP was normal. 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 adjunct philosophy faculty, Dr Nash Hypertension, controlled Hyperlipidemia, managed by Dr Nash Chronic tobacco use, continuing Chronic cough being followed and treated with her pcp Obesity, with BMI approx 35 Multiple back surgery for bulging discs (cervical and lumbar spines) Chronic narcotic analgesics for chronic back pain Psoriatic arthritis Hardness of hearing H/o MIHIR, but noncompliant with therapy Left calf discomfort of undetermined etiology Electrolyte abnormalities - replace Mild bilat carotid arterial disease per u/s of November 2016 Discussion and Recomendations Chest/shoulder discomfort which is reproducible with palpation. Symptoms consistent with musculoskeletal/costochondritis. We will start Motrin 400mg TID. No evidence of AMI. We will continue Norvasc for BP. We will resume ASA d/t CAD. Monitor serial lab. Further recommendations will be based on her hospital course. Management of migraine and diabetes per medical services. D/ t c/o left calf pain we will do a venous Doppler to t/o DVT. Replacement of electrolytes is already in progress. Monitor lab. She is requesting Benadryl and pain medication for chronic back and leg pain. We will defer that to medical services. We would like to thank the Hospitalist service for this consult. This consult is being scribed by Talia Joya APRN on behalf of Dr. Cobb after discussion regarding plan of care. Clinical Quality Measures AMI/AHF: ASA po Prior to arrival: No Physician Assessment Physician Assessment Lungs: good bilat air entry, but diminished at the bases Cor: reg A&R * As documented in our note above * Management relatively complex due to multiple comorbidities and chronic pain syndrome * Continue observation for now HSIRA JOYA Dec 29, 2016 14:08 MISSY COBB MD FACP FAC CCDS Dec 29, 2016 17:15
[2016-12-29] MEDS ORDERED: ASPIRIN E.C. 325 MG (ECOTRIN) TABLET PO SCH (14:15)
[2016-12-29] MEDS ORDERED: CATHETER FLUSH 10 ML SYR IV PRN (14:15)
[2016-12-29] MEDS: MAGNESIUM 1 GM/D5W 100 ML IVPB IV SCH ×2 (14:23→15:33)
[2016-12-29] MEDS: inSUlin (REGULAR) HUMAN 1 UNIT/0.01 ML (CHARGE PER UNIT) SC SCH ×2 (14:23→20:53)
[2016-12-29] MEDS: NS W/KCL 20 MEQ/L 1,000 ML IV SCH (14:23)
[2016-12-29] MEDS ORDERED: amLODIPine 5 MG (NORVASC) TAB PO NR (14:45)
--- NOTE | 2016-12-29 15:13 | Diagnostic Imaging Report ---
EXAMINATION: Left lower extremity duplex venous ultrasound. TECHNIQUE: DVT protocol. Multiple sonographic images with color Doppler and waveform interrogation were performed of the left lower extremity veins with compression and augmentation maneuvers. INDICATION: Left leg pain. FINDINGS: The left lower extremity veins from the groin to below the knee veins were examined with normal color-flow, compressibility and waveform demonstrated. The great saphenous vein is patent. IMPRESSION: No evidence of DVT in the left lower extremity. Dictated by: Dictated on workstation # [id number]
[2016-12-29] MEDS: IBUPROFEN TABLET 200 MG TAB PO SCH ×2 (15:29→20:53)
[2016-12-29] MEDS: inSUlin ASPART (NovoLOG) 1 UNIT/0.01 ML (CHARGE PER UNIT) SC SCH (15:32)
[2016-12-29] MEDS: PROMETHAZINE INJ 25 MG/ML (PHENERGAN) AMP IV PRN (17:16)
[2016-12-29] MEDS ORDERED: RT-ADVAIR HFA 115/21 MCG PER PUFF IH SCH (20:00)
[2016-12-29] MEDS: inSUlin DETERMIR 1 UNIT/0.01 ML (LEVEMIR) CHARGE PER UNIT SQ SCH (20:52)
[2016-12-29] MEDS: GABAPENTIN 300 MG (NEURONTIN) CAP PO SCH (20:53)
[2016-12-29] MEDS ORDERED: ATORVASTATIN 20 MG (LIPITOR) TABLET PO SCH (21:00)
[2016-12-29] MEDS ORDERED: IBUPROFEN TABLET 200 MG TAB PO SCH (21:00)
[2016-12-30] VITALS: BP 142/75
[2016-12-30] MEDS: PROMETHAZINE INJ 25 MG/ML (PHENERGAN) AMP IV PRN ×3 (00:32→12:30)
[2016-12-30] MEDS: NS W/KCL 20 MEQ/L 1,000 ML IV SCH (02:51)
[2016-12-30 04:00] VITALS: BP 145/74
[2016-12-30 05:15] LABS: ALANINE AMINOTRANSFERASE 7 U/L (0-55); ALBUMIN 3.3 G/DL (3.2-4.5); ANION GAP 9 MMOL/L (5-14); ASPARTATE AMINO TRANSFERASE 9 U/L (5-34); BILIRUBIN,TOTAL 0.2 MG/DL (0.1-1.0); BLOOD UREA NITROGEN 20 MG/DL (7-18); BUN/CREATININE RATIO 22; CALCIUM 8.6 MG/DL (8.5-10.1); CARBON DIOXIDE 21 MMOL/L (21-32); CHLORIDE 110 MMOL/L (98-107); CHOLESTEROL 213 MG/DL (< 200); CREATININE SERUM 0.89 MG/DL (0.60-1.30); DIRECT LDL 153 MG/DL (1-129); GFR ESTIMATED > 60; GLUCOSE 333 MG/DL (70-105); POTASSIUM 4.3 MMOL/L (3.6-5.0); SODIUM 140 MMOL/L (135-145); TOTAL PROTEIN 5.7 G/DL (6.4-8.2); TRIGLYCERIDES 315 MG/DL (<150); VLDL CHOLESTEROL 63 MG/DL (5-40)
[2016-12-30] MEDS: inSUlin (REGULAR) HUMAN 1 UNIT/0.01 ML (CHARGE PER UNIT) SC SCH ×2 (06:34→10:39)
[2016-12-30] MEDS ORDERED: PANTOPRAZOLE 20 MG TABLET (PROTONIX) PO SCH (07:00)
[2016-12-30 08:11] VITALS: BP 158/79
[2016-12-30] MEDS: inSUlin DETERMIR 1 UNIT/0.01 ML (LEVEMIR) CHARGE PER UNIT SQ SCH (08:16)
[2016-12-30] MEDS: IBUPROFEN TABLET 200 MG TAB PO SCH (08:16)
[2016-12-30] MEDS: GABAPENTIN 300 MG (NEURONTIN) CAP PO SCH (08:17)
[2016-12-30] MEDS: inSUlin ASPART (NovoLOG) 1 UNIT/0.01 ML (CHARGE PER UNIT) SC SCH (08:27)
[2016-12-30] MEDS ORDERED: ASPIRIN E.C. 81 MG (ECOTRIN) TAB PO SCH (09:00)
[2016-12-30] MEDS ORDERED: amLODIPine 5 MG (NORVASC) TAB PO SCH ×2 (09:00)
[2016-12-30] MEDS ORDERED: ASPIRIN 81 MG CHEW (CHILDREN'S ASA) PO SCH (09:00)
--- NOTE | 2016-12-30 09:39 | Progress Note-Cardiology ---
Cardiology SOAP Progress Note Subjective: Transferred to [facility] 12. C/O PERKINS. C/O chest wall and shoulder pain with palpation. No c/o dyspnea, palpitations, syncope or near syncope. Objective: I&O/Vital Signs Vital Sign - Last 12Hours 12/30/16 12/30/16 12/30/16 12/30/16 07:00 08:10 08:10 08:11 Temp 98.5 Pulse 64 70 Resp 20 B/P 158/79 Pulse Ox 96 O2 Delivery Room Air Room Air Room Air 12/30/16 12/30/16 12/30/16 12:00 12:45 14:12 Temp 97.9 Pulse 71 71 Resp 20 20 B/P 173/80 173/80 Pulse Ox 98 98 O2 Delivery Room Air Room Air Intake and Output 12/30/16 00:00 Intake Total 400 ml Output Total 400 ml Balance 0 ml Weight (Pounds): 175 Weight (Ounces): 4.0 Weight (Calculated Kilograms): 79.032894 Constitutional: appears stated ageNo apparent distress, well-developed well- nourished Respiratory: No accessory muscle use, No respiratory distress, chest expansion is symmetric chest is bilaterally symmetric lungs clear to percussion lungs clear to auscultation Cardiovascular: regular rate-rhythmNo JVD, S1 and S2 systolic murmur Gastrointestional: No tender, soft roundNo spleenomegaly Extremities: No clubbing, No cyanosis, No significant edema Neurologic/Psychiatric: alert oriented x 3 power is 5/5 both on sides Skin: No rash, No ulcerations Results/Procedures: Labs Laboratory Tests 12/29/16 18:15: Troponin I < 0.30 12/29/16 20:50: Glucometer 344H 12/30/16 04:40: Alanine Aminotransferase (ALT/SGPT) 7, Albumin 3.3, Alkaline Phosphatase 63, Anion Gap 9, Aspartate Amino Transf (AST/SGOT) 9, BUN/Creatinine Ratio 22, Blood Urea Nitrogen 20H, Calcium Level 8.6, Carbon Dioxide Level 21, Chloride Level 110H, Cholesterol Level 213H, Creatinine 0.89, Estimat Glomerular Filtration Rate > 60, Glucose Level 333H, HDL Cholesterol 29L, LDL Cholesterol Direct 153H, Magnesium Level 2.0, Potassium Level 4.3, Sodium Level 140, Total Bilirubin 0.2, Total Protein 5.7L, Triglycerides Level 315H, VLDL Cholesterol 63H 12/30/16 09:51: Glucometer 285H A/P: Assessment: Chest/shoulder discomfort reproducible with palpation - symptoms consistent with musculoskeletal Migraines being managed by medical services CAD. Underwent stenting of mid LAD Resolute Integrity 2.5x[address] Cohen on ; LVEF was 60% and there was 40--50% mid RCA stenosis. Subsequent cath by Dr Ibrahim on 07/16/15 (for recurrent chest pain) showed that the stent was patent and RCA disease was mild and LVEDP was normal. 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 web weaver, Dr Nash Hypertension, controlled Hyperlipidemia, managed by Dr Nash Chronic tobacco use, continuing Chronic cough being followed and treated with her pcp Obesity, with BMI approx 35 Multiple back surgery for bulging discs (cervical and lumbar spines) Chronic narcotic analgesics for chronic back pain Psoriatic arthritis Hardness of hearing H/o MIHIR, but noncompliant with therapy Left calf discomfort of undetermined etiology Electrolyte abnormalities - replace Mild bilat carotid arterial disease per u/s of November 2016 Plan: Chest wall and shoulder discomfort which is reproducible with palpation. Symptoms consistent with musculoskeletal/costochondritis. No evidence of AMI Continue current medications OK to discharge home from cardiac stand point with out pt f/u in 2-3 weeks Physician Assessment Physician Assessment Lungs: clear Cor: reg Reproducible chest tenderness in the sternal and L parasternal area A&R * As documented in our note above * I have had a detailed discussion with her regarding her CV issues and have answered questions * Outpatient f/u is advised * Cor risk factor modification has been advised and discussed Clinical Quality Measures AMI/AHF: ASA po Prior to arrival: SHIRA Carreno MANAGER [employer]ARAGE Dec 30, 2016 09:38 RICH FELIX MD FACP FAC CCDS Dec 30, 2016 16:52
[2016-12-30] MEDS ORDERED: IBUP-2055 PO (10:19)
[2016-12-30] MEDS ORDERED: HYDROcodone/APAP 10 MG/325 MG (LORTAB) TAB PO NR (10:30)
--- NOTE | 2016-12-30 10:35 | Short Stay Summary-Hospitalist ---
HPI History of Present Illness: HPI/Chief Complaint CC: Chest pain HPI: This is a 56yoWF out of control DM known to me from prior admission from hyperglycemia who refuses to get PCP presents with chest pain. Dr. Cobb evaluated pt to be stable for DC with no medication changes. She is dependent on pain medication for which I am not the specialist who she sees regularly and I have made it clear that nothing other than home pain medicine will be given. 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 Pt was started on Ibuprofen yesterday and Ultram this morning. Patient Interview: Physical exam stable. Pt requests stronger pain medicine. Dr. 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 Pt states that she has a migraine. Pt has not established with PCP yet. Plan: One dose of Hydrocodone DC and establish with PCP Scribed by Jerry Hernandez under the direct supervision of Dr. Melvin. Source: patient Exam Limitations: no limitations Date Seen 12/30/16 Attending Physician Jazmine Melvin DO PCP No,Local Physician Referring Physician Date of Admission Dec 29, 2016 at 12:57 Home Medications & Allergies Home Medications Reviewed patient Home Medication Reconciliation Form Allergies Coded Allergies: ketorolac (Verified Allergy, Severe, ANAPHYLAXIS, PT TAKES ASA AT HOME, ) ondansetron (Verified Allergy, Intermediate, RASH, 07/19/14) RASH/ HIVES exenatide (Verified Allergy, Unknown, NAUSEA, 07/19/14) NON STOP VOMITING latex (Verified Allergy, Unknown, RASH, 07/19/14) metoclopramide (Verified Allergy, Unknown, RESTLESS LEGS, 07/19/14) Past Qtnuwgq-Ihjmpc-Emdjsj Hx Patient Social History Marrital Status: single Employed/Student: unemployed Alcohol Use: Denies Use Recreational Drug Use: No Smoking Status: Former Smoker Former smoker/When Quit: Type Used: Cigarettes Physical Abuse Screen: No Sexual Abuse: No Recent Foreign Travel: No Contact w/other who traveled: No Recent Hopitalizations: Yes (PORT INSERTION) Recent Infectious Disease Expo: No Immunizations Up To Date Tetanus Booster (TDap): Less than 5yrs Date of Pneumonia Vaccine: Dec 12, 2013 Date of Influenza Vaccine: Nov 23, 2016 Seasonal Allergies Seasonal Allergies: No Surgeries HX Surgeries: Yes Surgeries: Cardiac, Coronary Stent, Ear Surgery, Gallbladder, Orthopedic, Renal Respiratory Hx Respiratory Disorders: Yes Respiratory Disorders: Asthma Cardiovascular Hx Cardiovascular Disorders: Yes Cardiac Disorders: Chronic Edema/Swelling, Coronary Artery Disease, Deep Vein Thrombosis, High Cholesterol, Hypertension Neurological Hx Neurological Disorders: Yes Neurological Disorders: Headaches /Migraines, Neuropathy 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 System : No Hx 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 Disorders: No Sexually Transmitted Disease: No HIV/AIDS: No 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 Disorders: Denies Genitourinary Hx Genitourinary Disorders: Yes Genitourinary Disorders: Bladder Infection, Kidney Stones, Renal Failure Gastrointestinal Hx Gastrointestinal Disorders: Yes Gastrointestinal Disorders: Gastroesophageal Reflux, Chronic Constipation Musculoskeletal Hx Musculoskeletal Disorders: Yes Musculoskeletal Disorders: Degenerate Disk Disease, Chronic Back Pain Endocrine Hx Endocrine Disorders: Yes Endocrine Disorders: Diabetes, Insulin dep HEENT HX ENT Disorders: No HEENT Disorders: Chronic Ear Infection Loss of Vision: Denies Hearing Impairment: Hard of Hearing Cancer Hx Cancer: No Psychosocial Hx Psychiatric Problems: Yes Behavioral Health Disorders: Anxiety Integumentary HX Skin/Integumentary Disorder: No Skin/Integumentary Disorders: Psoriasis Blood Transfusions Hx Blood Disorders: No Adverse Reaction to a Blood Tr: No Family Medical History Significant Family History: No Pertinent Family Hx Family Hx: Cancer of mouth 19 FATHER ( of esophogeal cancer.) Cardiovascular disease 19 MOTHER G8 BROTHER Completed stroke 19 FATHER G8 BROTHER Diabetes mellitus G8 BROTHER FH: lung cancer 19 MOTHER Hypertension 19 FATHER Kidney disease 19 FATHER Myocardial infarction 19 MOTHER G8 BROTHER Respiratory disorder No Family History of: AIDS Review of Systems Constitutional: see HPI dizziness EENTM: no symptoms reported Respiratory: no symptoms reported Cardiovascular: chest pain Gastrointestinal: no symptoms reported Genitourinary: no symptoms reported Musculoskeletal: back pain Skin: no symptoms reported Psychiatric/Neurological: Headache All Other Systems Reviewed Negative Unless Noted: Yes Physical Exam Physical Exam Vital Signs Vital Sign - Last 12Hours 12/29/16 09:57 Temp 97.8 Pulse 80 Resp 16 B/P 103/64 Pulse Ox 93 O2 Delivery Room Air Capillary Refill : Less Than 3 Seconds General Appearance: WD/WN Chronically ill Mild Distress (due to migraine) Eyes: Bilateral Eye Normal Inspection, Bilateral Eye PERRL HEENT: PERRL/EOMI Normal ENT Inspection Pharynx Normal Neck: Full Range of Motion Normal Inspection Non Tender Supple Carotid Bruit Respiratory: Chest Non Tender Lungs Clear Normal Breath Sounds No Accessory Muscle Use No Respiratory Distress Cardiovascular: Regular Rate, Rhythm No Edema No Gallop No JVD No Murmur Normal Peripheral Pulses Gastrointestinal: Normal Bowel Sounds No Organomegaly No Pulsatile Mass Non Tender Soft Back: Normal Inspection No CVA Tenderness No Vertebral Tenderness Extremity: Normal Capillary Refill Normal Inspection Normal Range of Motion Non Tender No Calf Tenderness No Pedal Edema Neurologic/Psychiatric: Alert Oriented x3 No Motor/Sensory Deficits Normal Mood/Affect Skin: Normal Color Warm/Dry Lymphatic: No Adenopathy Results Results/Procedures Lab Laboratory Tests 12/29/16 11:00 12/30/16 04:40 Short Stay Diagnosis Discharge Diagnosis-Short Stay Admission Diagnosis Assessment: Chest pain non-cardiac Acute migraine Noncompliance History of coronary artery disease Diabetes mellitus insulin-dependent with insulin resistance poor control 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 Gastroparesis Chronic pain Acute renal failure hx Conclusion Plan Discharge home Give 1 dose of hydrocodone while here due to acute migraine because she so incapacitated that I can't possibly discharge her before that is done Resume all home medication but no additional pain medication will be prescribed due to pain management contract with her specialist Reiterated the fact that she needed to obtain a primary care provider to decreased emergency room visits for variety of symptoms that could be easily managed in the clinic setting Brief course of ibuprofen due to muscle skeletal pain causing the chest pain that required admission but monitor closely due to renal function history issues in the past Clinical Quality Measures AMI/AHF: ASA po Prior to arrival: No DVT/VTE Risk/Contraindication: Risk Factor Score Per Nursin RFS Level Per Nursing on Admit: 4+=Very High JAZMINE MELVIN DO Dec 30, 2016 10:35
[2016-12-30 12:00] VITALS: BP 173/80
[2016-12-30 12:45] VITALS: BP 173/80
== END 2016-12-30 12:45 | disposition home or self-care (01) ==
LOC: EDUNIT# 09:57 → ER 09:59 → ICU 12:57 → UNDOADMOB 12:57 → ICU 13:47 → CSD 12-30 08:45 → ICU 12-30 08:45 → UNDODISOB 12-30 12:45
PROVIDERS: ADMIT Internal Medicine; ATTEND Internal Medicine
DX: R07.89 Other chest pain (principal); G43.909 Migraine, unspecified, not intractable, without status migrainosus; I25.10 Atherosclerotic heart disease of native coronary artery without angina pectoris; E11.65 Type 2 diabetes mellitus with hyperglycemia; K31.84 Gastroparesis; I10 Essential (primary) hypertension; Z91.19 Patient's noncompliance with other medical treatment and regimen; Z79.4 Long term (current) use of insulin; Z87.891 Personal history of nicotine dependence; Z95.5 Presence of coronary angioplasty implant and graft; Z86.718 Personal history of other venous thrombosis and embolism
CPT/HCPCS: 36415; 71020; 80053; 80061; 82962; 83735; 83874; 84484; 85025; 85379; 85610; 85730; 93005; 93041; 94640; 94664; 96361; 96374; 96375; 96376; G0378

== ENCOUNTER → 2017-01-14 | Outpatient (CLI) | payer MEDICARE ==
[~2017-01-14] MED LIST changes: +AMOX500C2 PO; +IBUP-2055 PO; +PROM25SU44 RC
== END ==
LOC: LAB 13:57
PROVIDERS: ATTEND Nurse Practitioner Family
DX: R05 Cough (principal); R50.9 Fever, unspecified
CPT/HCPCS: 87804

== ENCOUNTER 2017-02-09 15:41 | Emergency (ER) | payer MEDICARE ==
[~2017-02-09] VITALS: Ht 152.4 cm; Wt 79.4 kg
[~2017-02-09 15:41] MED LIST changes: -AMOX500C2 PO; -PROM25SU44 RC
--- NOTE | 2017-02-09 16:10 | ED EENT ---
History of Present Illness General Chief Complaint: Ear Problems Stated Complaint: LEFT SIDE EAR PAIN Nursing Triage Note: PT CO OF L EAR PAIN RUPTURED ON WEDNESDAY, STATES HAVING PAIN TODAY AND YELLOWISH DRAINAGE NOTED, PT STATES WAS GIVEN ROCEPHIN INJ, Z-PACK, PERCOCET, AND EAR GTTS START W O. PT STATES IS OUT OF PERCOCET Source: patient Exam Limitations: no limitations History of Present Illness Time seen by provider: 16:10 Initial Comments 56-year-old female patient presents to the emergency Department with reports of left ear pain. Patient was seen by a physician while visiting her son on Wednesday and given Rocephin, Z-Parmjit, and Percocet. Patient reports yellowish ear drainage today. Patient was seen by [facility] yesterday and given ofloxacin eardrops. Patient states she is out of her Percocet. Patient reports a new cotton ball was placed in the left ear just prior to leaving her house and was "soaked with pus" by the time she got here. RN reports a very small spot of yellow was noted on the cotton ball. Timing/Duration: abrupt, last week Location: ear (L) Prearrival Treatment: over the counter meds, prescription meds Presenting Symptoms/Injuries: left ear pain and drainage Modifying Factors: Worse With Other (worse with palpation and cold air.) Allergies and Home Medications Allergies Coded Allergies: ketorolac (Verified Allergy, Severe, ANAPHYLAXIS, PT TAKES ASA AT HOME, ) ondansetron (Verified Allergy, Intermediate, RASH, 07/19/14) RASH/ HIVES exenatide (Verified Allergy, Unknown, NAUSEA, 07/19/14) NON STOP VOMITING latex (Verified Allergy, Unknown, RASH, 07/19/14) metoclopramide (Verified Allergy, Unknown, RESTLESS LEGS, 07/19/14) Home Medications Amlodipine Besylate 5 Mg Tablet, 5 MG PO DAILY, (Reported) Aspirin 81 Mg Tablet.dr, 81 MG PO DAILY, (Reported) Atorvastatin Calcium 20 Mg Tablet, 20 MG PO HS, (Reported) Fluticasone/Vilanterol 1 Each Blst.w.dev, 1 PUFF IH DAILY, (Reported) Gabapentin 300 Mg Capsule, 600 MG PO TID, (Reported) TAKES 2 (300 MG) CAPSULES Ibuprofen 200 Mg Tablet, 400 MG PO TID, #30 Prescribed by: AZEEM MELVIN on 12/30/16 1019 Insulin Detemir 100 Unit/1 Ml Insuln.pen, 50 UNITS SQ BID, (Reported) Insulin Lispro 100 Unit/1 Ml Insuln.pen, 0 SQ AC, (Reported) PER SLIDING SCALE 1 UNIT PER 3 CARBOHYDRATES 1 UNIT FOR EVERY 15 > 150 Omeprazole 20 Mg Capsule.dr, 20 MG PO DAILY, (Reported) Tramadol HCl 50 Mg Tablet, 100 MG PO TID, (Reported) TAKES 2 (50 MG) TABLETS Review of Systems Constitutional: No chills, No dizziness, No fever, No malaise, No weakness Eyes: No Symptoms Reported Ears: See HPI, Denies Dizziness, Pain, Denies Tinnitus, Other (yellow dsch from the left ear.) Nose: no symptoms reported Mouth: no symptoms reported Throat: no symptoms reported Respiratory: no symptoms reported Cardiovascular: no symptoms reported Skin: no symptoms reported Neurological: No Symptoms Reported All Other Systems Reviewed Negative Unless Noted: Yes (Negative excepted noted.) Past Wlxlyts-Ntykuz-Kglvhw Hx Patient Social History Alcohol Use: Denies Use Recreational Drug Use: No Smoking Status: Former Smoker Type Used: Cigarettes Former Smoker/When Quit: Recent Foreign Travel: No Contact w/Someone Who Travel: No Recent Infectious Disease Expo: No Recent Hopitalizations: Yes (PORT INSERTION) Immunizations Up To Date Tetanus Booster (TDap): Less than 5yrs PED Vaccines UTD: No Date of Pneumonia Vaccine: Dec 12, 2013 Date of Influenza Vaccine: Nov 23, 2016 Seasonal Allergies Seasonal Allergies: No Surgeries HX Surgeries: Yes Surgeries: Cardiac, Coronary Stent, Ear Surgery, Gallbladder, Orthopedic, Renal Respiratory Hx Respiratory Disorders: Yes Respiratory Disorders: Chronic Bronchitis Cardiovascular Hx Cardiac Disorders: Yes Cardiac Disorders: Chronic Edema/Swelling, Coronary Artery Disease, Deep Vein Thrombosis, High Cholesterol, Hypertension Neurological Hx Neurological Disorders: Yes Neurological Disorders: Headaches /Migraines, Neuropathy 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 System Hx 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 Disorders: No Sexually Transmitted Disease: No HIV/AIDS: No 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 Disorders: 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 Genitourinary Hx Genitourinary Disorders: Yes Genitourinary Disorders: Bladder Infection, Kidney Stones, Renal Failure Gastrointestinal Hx Gastrointestinal Disorders: Yes Gastrointestinal Disorders: Gastroesophageal Reflux, Chronic Constipation Musculoskeletal Hx Musculoskeletal Disorders: Yes Musculoskeletal Disorders: Degenerate Disk Disease, Chronic Back Pain Endocrine Hx Endocrine Disorders: Yes Endocrine Disorders: Diabetes, Insulin dep HEENT HX ENT Disorders: No HEENT Disorders: Chronic Ear Infection Loss of Vision: Denies Hearing Impairment: Hard of Hearing Cancer Hx Cancer: No Psychosocial Hx Psychiatric Problems: Yes Behavioral Health Disorders: Anxiety Integumentary HX Skin/Integumentary Disorder: No Skin/Integumentary Disorders: Psoriasis Blood Transfusions Hx Blood Disorders: No Adverse Reaction to a Blood Tr: No Reviewed Nursing Assessment Reviewed/Agree w Nursing PMH: Yes Family Medical History Significant Family History: No Pertinent Family Hx Family Medial History: Cancer of mouth 19 FATHER ( of esophogeal cancer.) Cardiovascular disease 19 MOTHER G8 BROTHER Completed stroke 19 FATHER G8 BROTHER Diabetes mellitus G8 BROTHER FH: lung cancer 19 MOTHER Hypertension 19 FATHER Kidney disease 19 FATHER Myocardial infarction 19 MOTHER G8 BROTHER Respiratory disorder No Family History of: AIDS Physical Exam Vital Signs Vital Sign - Last 12Hours 02/09/17 15:55 Temp 97.6 Pulse 84 Resp 18 B/P (MAP) 133/93 Pulse Ox 96 General Appearance: WD/WN, no apparent distress Eyes: bilateral eye EOMI, bilateral eye PERRL, bilateral eye normal inspection Ears: right ear TM normal, left ear TM perforation (no evidence of purulent drainage, blood in the canal, retractions, or bulging.), bilateral ear auricle normal, bilateral ear canal normal Nose: normal inspection Mouth/Throat: normal mouth inspection, pharynx normal Neck: non-tender, full range of motion, supple, normal inspection Cardiovascular: regular rate, rhythm, no murmur Respiratory: lungs clear, normal breath sounds, no respiratory distress Neurologic/Psychiatric: alert, normal mood/affect, oriented x 3 Skin: normal color, warm/dry Progress/Results/Core Measures Results/Orders My Orders Medications Given in ED Vital Signs/I&O Blood Pressure Mean: 106 Departure Communication Progress Notes Patient seen and evaluated. Plan for discharge to home with follow-up as an outpatient with [facility]. All return precautions were discussed with the patient as described in the discharge instructions of this report. Patient voices understanding and agrees with the treatment plan. Impression Impression: Primary Impression: Ear pain, left Additional Impression: Ruptured tympanic membrane Disposition: HOME, SELF-CARE Condition: Improved Departure-Patient Inst. Decision time for Depature: 16:50 Referrals: SHAWN SOMERS MD,WINDY Easley DO (PCP/Family) Primary Care Physician Patient Instructions: Ruptured Eardrum (DC) Add. Discharge Instructions: All discharge instructions reviewed with patient and/or family. Voiced understanding. Continue current medications. Tylenol Extra Strength over-the- counter as directed for pain. Ibuprofen 800 mg by mouth every 8 hours as needed for pain. Avoid water or cold air in the left ear. Follow-up with your primary care physician as an outpatient for a recheck this week, call for appointment time today. Return to the emergency department for worsened symptoms or any other concerns. LORNA HERNADEZ Feb 09, 2017 16:10
[2017-02-09] MEDS ORDERED: oxyCODONE/APAP 5/325MG (PERCOCET 5) TABLET PO STA (16:24)
[2017-02-09] MEDS ORDERED: cefTRIAXone 1 GM (ROCEPHIN) VIAL IM ONE (16:30)
[2017-02-09] MEDS ORDERED: LIDOCAINE 1% INJ 20 ML (XYLOCAINE) VIAL INJ ONE (16:30)
[2017-02-09 17:11] VITALS: BP 133/93
== END 2017-02-09 17:10 | disposition home or self-care (01) ==
LOC: EDUNIT# 15:41 → ER 15:41
DX: H72.92 Unspecified perforation of tympanic membrane, left ear (principal); I10 Essential (primary) hypertension; E11.9 Type 2 diabetes mellitus without complications; Z79.82 Long term (current) use of aspirin; Z79.899 Other long term (current) drug therapy; Z79.4 Long term (current) use of insulin; Z95.5 Presence of coronary angioplasty implant and graft; Z87.891 Personal history of nicotine dependence
CPT/HCPCS: 96372; 99282

== ENCOUNTER 2017-03-08 15:46 | Emergency (ER) | payer MEDICARE ==
[~2017-03-08] VITALS: Ht 152.4 cm; Wt 79.4 kg
[2017-03-08] MEDS ORDERED: OXYC-197 PO (16:32)
[2017-03-08 16:37] LABS: BILIRUBIN,URINE NEGATIVE (NEGATIVE); KETONES,URINE NEGATIVE (NEGATIVE); LEUKOCYTE ESTERASE ,URINE 1+ (NEGATIVE); NITRITE,URINE NEGATIVE (NEGATIVE); PH,URINE 6.5 (5-9); PROTEIN,URINE 2+ (NEGATIVE); UROBILINOGEN,URINE NORMAL (NORMAL)
[2017-03-08 16:50] LABS: SQUAMOUS EPITHELIAL CELL,UR 0-2 /HPF; WBC,URINE RARE /HPF
[2017-03-08] MEDS ORDERED: NS IV 1000 ML 1,000 ML IV ONE (16:54)
[2017-03-08] MEDS ORDERED: inSUlin (REGULAR) HUMAN 1 UNIT/0.01 ML (CHARGE PER UNIT) IV ONE ×2 (17:00→18:15)
[2017-03-08 17:10] LABS: BASOPHILS # (AUTO) 0.1 10^3/uL (0.0-0.1); BASOPHILS % (AUTO) 1 % (0-10); EOSINOPHILS # (AUTO) 0.4 10^3/uL (0.0-0.3); EOSINOPHILS % (AUTO) 3 % (0-10); LYMPHOCYTES # (AUTO) 3.5 X 10^3 (1.0-4.0); LYMPHOCYTES % (AUTO) 28 % (12-44); MEAN CORPUSCULAR HEMOGLOBIN 29 PG (25-34); MEAN CORPUSCULAR HGB CONC 35 G/DL (32-36); MEAN CORPUSCULAR VOLUME 85 FL (80-99); MEAN PLATELET VOLUME 11.1 FL (7.4-10.4); MONOCYTES # (AUTO) 0.7 X 10^3 (0.0-1.0); MONOCYTES % (AUTO) 5 % (0-12); NEUTROPHILS # (AUTO) 7.6 X 10^3 (1.8-7.8); NEUTROPHILS % (AUTO) 63 % (42-75); PLATELET COUNT 282 10^3/uL (130-400); RED BLOOD COUNT 4.74 10^6/uL (4.35-5.85); WHITE BLOOD COUNT 12.2 10^3/uL (4.3-11.0)
[2017-03-08 17:19] LABS: BILIRUBIN,TOTAL 0.3 MG/DL (0.1-1.0); CREATININE SERUM 1.42 MG/DL (0.60-1.30); MAGNESIUM 2.1 MG/DL (1.8-2.4); POTASSIUM 4.3 MMOL/L (3.6-5.0); TOTAL PROTEIN 7.2 G/DL (6.4-8.2)
[2017-03-08] MEDS ORDERED: PROMETHAZINE INJ 25 MG/ML (PHENERGAN) AMP ONE (17:28)
[2017-03-08] MEDS ORDERED: PROMETHAZINE 25 MG (PHENERGAN) SUPP ONE (17:30)
[2017-03-08] MEDS ORDERED: fentaNYL INJECTION 100 MCG/2 ML AMP ONE (17:32)
[2017-03-08] MEDS ORDERED: diphenhydrAMINE 50 MG/ML INJ (BENADRYL) ONE (17:32)
--- NOTE | 2017-03-08 17:34 | Diagnostic Imaging Report ---
INDICATION: High blood sugar. Cough. EXAMINATION: Two views of the chest were obtained. FINDINGS: Normal heart size and vascularity. The lungs are clear. There is no effusion or pneumothorax. Port-A-Cath is present. IMPRESSION: No acute abnormality is seen with no change from 12/29/16. Dictated by: Dictated on workstation # [id number]
[2017-03-08] MEDS ORDERED: fentaNYL INJECTION 100 MCG/2 ML AMP IVP ONE (17:45)
[2017-03-08] MEDS ORDERED: PROMETHAZINE 25 MG (PHENERGAN) SUPP PR ONE (17:45)
[2017-03-08] MEDS ORDERED: PROMETHAZINE 25 MG (PHENERGAN) TAB PO ONE (17:45)
[2017-03-08] MEDS ORDERED: diphenhydrAMINE 50 MG/ML INJ (BENADRYL) IVP ONE (17:45)
--- NOTE | 2017-03-08 17:57 | ED General ---
General Chief Complaint: Glucose Problems Stated Complaint: HIGH BLOOD SUGAR Nursing Triage Note: PT HAS HAD ELEVATED BS SINCE 0700 THIS AM. PT STATES HAS TAKEN 90U OF HUMALOG INSULIN TODAY. CO OF NAUSEA AND ELEVATED GLUECOSE. Nursing Sepsis Screen: No Definite Risk Source of Information: Patient Exam Limitations: No Limitations (WARD MUNGUIA MD) History of Present Illness Time Seen by Provider: 16:30 Initial Comments This 56-year-old woman presents to the emergency room with hyperglycemia. She reports her blood sugars have been running in the 400s in recent days. This morning her blood sugar was "high". She has been unable to get her blood sugars down throughout the day. She generally has not felt well recently. She has had increased nausea. She cannot keep her pain medications down and therefore has exacerbation of chronic pain. She has had lots of cough within the last year that has been worse in recent weeks. She states it has become productive recently. She has pain in the right ear and states she has had some difficulty with recent ear infections. She has a follow-up appointment scheduled with ENT. (WARD MUNGUIA MD) Allergies and Home Medications Allergies Coded Allergies: ketorolac (Verified Allergy, Severe, ANAPHYLAXIS, PT TAKES ASA AT HOME, ) ondansetron (Verified Allergy, Intermediate, RASH, 07/19/14) RASH/ HIVES exenatide (Verified Allergy, Unknown, NAUSEA, 07/19/14) NON STOP VOMITING latex (Verified Allergy, Unknown, RASH, 07/19/14) metoclopramide (Verified Allergy, Unknown, RESTLESS LEGS, 07/19/14) Home Medications Amlodipine Besylate 5 Mg Tablet, 5 MG PO DAILY, (Reported) Amoxicillin 500 Mg Capsule, 1,000 MG PO BID, #40 Prescribed by: WARD BEE on 03/08/17 1813 Aspirin 81 Mg Tablet.dr, 81 MG PO DAILY, (Reported) Atorvastatin Calcium 20 Mg Tablet, 20 MG PO HS, (Reported) Fluticasone/Vilanterol 1 Each Blst.w.dev, 1 PUFF IH DAILY, (Reported) Gabapentin 300 Mg Capsule, 600 MG PO TID, (Reported) TAKES 2 (300 MG) CAPSULES Ibuprofen 200 Mg Tablet, 400 MG PO TID, #30 Prescribed by: AZEEM MELVIN on 12/30/16 1019 Insulin Detemir 100 Unit/1 Ml Insuln.pen, 50 UNITS SQ BID, (Reported) Insulin Lispro 100 Unit/1 Ml Insuln.pen, 0 SQ AC, (Reported) PER SLIDING SCALE 1 UNIT PER 3 CARBOHYDRATES 1 UNIT FOR EVERY 15 > 150 Omeprazole 20 Mg Capsule.dr, 20 MG PO DAILY, (Reported) Oxycodone HCl/Acetaminophen 1 Each Tablet, 1 EACH PO Q4H PRN for PAIN-MILD TO MODERATE, (Reported) Promethazine HCl 25 Mg Supp.rect, 25 MG RC Q6H PRN for NAUSEA/VOMITING-1ST LINE , #10 Prescribed by: WARD BEE on 03/08/17 181 Constitutional: see HPI EENTM: see HPI Respiratory: no symptoms reported Cardiovascular: no symptoms reported Gastrointestinal: see HPI Genitourinary: no symptoms reported Musculoskeletal: see HPI Skin: no symptoms reported Psychiatric/Neurological: No Symptoms Reported Hematologic/Lymphatic: No Symptoms Reported (WARD MUNGUIA MD) Past Hxikvbf-Ilyvhz-Wjixao Hx Patient Social History Alcohol Use: Denies Use Recreational Drug Use: No Smoking Status: Former Smoker Type Used: Cigarettes Recent Foreign Travel: No Contact w/Someone Who Travel: No Recent Infectious Disease Expo: No Recent Hopitalizations: No (PORT INSERTION) (WARD MUNGUIA MD) Immunizations Up To Date Tetanus Booster (TDap): Less than 5yrs PED Vaccines UTD: No Date of Pneumonia Vaccine: Dec 12, 2013 Date of Influenza Vaccine: Nov 23, 2016 (WARD MUNGUIA MD) Seasonal Allergies Seasonal Allergies: No (WARD MUNGUIA MD) Surgeries HX Surgeries: Yes Surgeries: Cardiac, Coronary Stent, Ear Surgery, Gallbladder, Orthopedic, Renal (WARD MUNGUIA MD) Respiratory Hx Respiratory Disorders: Yes Respiratory Disorders: Chronic Bronchitis (WARD MUNGUIA MD) Cardiovascular Hx Cardiac Disorders: Yes Cardiac Disorders: Chronic Edema/Swelling, Coronary Artery Disease, Deep Vein Thrombosis, High Cholesterol, Hypertension (WARD MUNGUIA MD) Neurological Hx Neurological Disorders: Yes Neurological Disorders: Headaches /Migraines, Neuropathy (WARD MUNGUIA MD) 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 System Hx 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 Disorders: No Sexually Transmitted Disease: No HIV/AIDS: No 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 Disorders: Denies [employer] LEAD History: Menopausal (WARD MUNGUIA MD) Genitourinary Hx Genitourinary Disorders: Yes Genitourinary Disorders: Bladder Infection, Kidney Stones, Renal Failure (WARD MUNGUIA MD) Gastrointestinal Hx Gastrointestinal Disorders: Yes Gastrointestinal Disorders: Gastroesophageal Reflux, Chronic Constipation (WARD MUNGUIA MD) Musculoskeletal Hx Musculoskeletal Disorders: Yes Musculoskeletal Disorders: Degenerate Disk Disease, Chronic Back Pain (WARD MUNGUIA MD) Endocrine Hx Endocrine Disorders: Yes Endocrine Disorders: Diabetes, Insulin dep (WARD MUNGUIA MD) HEENT HX ENT Disorders: No HEENT Disorders: Chronic Ear Infection Loss of Vision: Denies Hearing Impairment: Hard of Hearing (WARD MUNGUIA MD) Cancer Hx Cancer: No (WARD MUNGUIA MD) Psychosocial Hx Psychiatric Problems: Yes Behavioral Health Disorders: Anxiety (WARD MUNGUIA MD) Integumentary HX Skin/Integumentary Disorder: No Skin/Integumentary Disorders: Psoriasis (WARD MUNGUIA MD) Blood Transfusions Hx Blood Disorders: No Adverse Reaction to a Blood Tr: No (WARD MUNGUIA MD) Family Medical History Significant Family History: No Pertinent Family Hx Family Medial History: Cancer of mouth 19 FATHER ( of esophogeal cancer.) Cardiovascular disease 19 MOTHER G8 BROTHER Completed stroke 19 FATHER G8 BROTHER Diabetes mellitus G8 BROTHER FH: lung cancer 19 MOTHER Hypertension 19 FATHER Kidney disease 19 FATHER Myocardial infarction 19 MOTHER G8 BROTHER Respiratory disorder No Family History of: AIDS (WARD MUNGUIA MD) Family Medial History: Cancer of mouth 19 FATHER ( of esophogeal cancer.) Cardiovascular disease 19 MOTHER G8 BROTHER Completed stroke 19 FATHER G8 BROTHER Diabetes mellitus G8 BROTHER FH: lung cancer 19 MOTHER Hypertension 19 FATHER Kidney disease 19 FATHER Myocardial infarction 19 MOTHER G8 BROTHER Respiratory disorder No Family History of: AIDS (JR MARQUEZ APRN) Physical Exam Vital Signs Vital Sign - Last 12Hours 03/08/17 15:55 Temp 98.4 Pulse 90 Resp 18 B/P (MAP) 138/74 Pulse Ox 96 O2 Delivery Room Air (JR MARQUEZ APRN) Vital Signs Capillary Refill : Less Than 3 Seconds (WARD MUNGUIA MD) General Appearance: No Apparent Distress, WD/WN HEENT: PERRL/EOMI, Normal ENT Inspection, Pharynx Normal, TM Abnormal (R) ( hypervascular and erythematous) Neck: Normal Inspection Respiratory: Lungs Clear, Normal Breath Sounds, No Accessory Muscle Use, No Respiratory Distress Cardiovascular: Regular Rate, Rhythm, No Edema, No Murmur Gastrointestinal: Normal Bowel Sounds, Non Tender, Soft Extremity: Normal Inspection, No Pedal Edema Neurologic/Psychiatric: Alert, Oriented x3, No Motor/Sensory Deficits, Normal Mood/Affect, 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 assistant II-XII Norm as Tested Skin: Normal Color, Warm/Dry (WARD MUNGUIA MD) Progress/Results/Core Measures Results/Orders Lab Results Laboratory Tests Test 03/08/17 15:59 03/08/17 16:05 03/08/17 18:06 Range/Units Urine Color YELLOW Urine Clarity CLEAR Urine pH 6.5 5-9 Urine Specific [place] 1.010 L 1.016-1.022 Urine Protein 2+ H NEGATIVE Urine Glucose (UA) 4+ H NEGATIVE Urine Ketones NEGATIVE NEGATIVE Urine Nitrite NEGATIVE NEGATIVE Urine Bilirubin NEGATIVE NEGATIVE Urine Urobilinogen NORMAL NORMAL MG/DL Urine Leukocyte Esterase 1+ H NEGATIVE Urine RBC (Auto) NEGATIVE NEGATIVE Urine RBC NONE /HPF Urine WBC RARE /HPF Urine Squamous Epithelial Cells 0-2 /HPF Urine Crystals NONE /LPF Urine Bacteria NEGATIVE /HPF Urine Casts NONE /LPF Urine Mucus NEGATIVE /LPF Urine Culture Indicated NO White Blood Count 12.2 H 4.3-11.0 10^3/uL Red Blood Count 4.74 4.35-5.85 10^6/uL Hemoglobin 13.9 11.5-16.0 G/DL Hematocrit 40 35-52 % Mean Corpuscular Volume 85 80-99 FL Mean Corpuscular Hemoglobin 29 25-34 PG Mean Corpuscular Hemoglobin Concent 35 32-36 G/DL Red Cell Distribution Width 13.0 10.0-14.5 % Platelet Count 282 130-400 10^3/uL Mean Platelet Volume 11.1 H 7.4-10.4 FL Neutrophils (%) (Auto) 63 42-75 % Lymphocytes (%) (Auto) 28 12-44 % Monocytes (%) (Auto) 5 0-12 % Eosinophils (%) (Auto) 3 0-10 % Basophils (%) (Auto) 1 0-10 % Neutrophils # (Auto) 7.6 1.8-7.8 X 10^3 Lymphocytes # (Auto) 3.5 1.0-4.0 X 10^3 Monocytes # (Auto) 0.7 0.0-1.0 X 10^3 Eosinophils # (Auto) 0.4 H 0.0-0.3 10^3/uL Basophils # (Auto) 0.1 0.0-0.1 10^3/uL Sodium Level 131 L 135-145 MMOL/L Potassium Level 4.3 3.6-5.0 MMOL/L Chloride Level 99 98-107 MMOL/L Carbon Dioxide Level 20 L 21-32 MMOL/L Anion Gap 12 5-14 MMOL/L Blood Urea Nitrogen 19 H 7-18 MG/DL Creatinine 1.42 H 0.60-1.30 MG/DL Estimat Glomerular Filtration Rate 38 BUN/Creatinine Ratio 13 Glucose Level 701 *H 70-105 MG/DL Glucometer > 600 *H 449 *H 70-110 MG/DL Calcium Level 9.0 8.5-10.1 MG/DL Magnesium Level 2.1 1.8-2.4 MG/DL Total Bilirubin 0.3 0.1-1.0 MG/DL Aspartate Amino Transf (AST/SGOT) 8 5-34 U/L Alanine Aminotransferase (ALT/SGPT) 9 0-55 U/L Alkaline Phosphatase 103 40-136 U/L Total Protein 7.2 6.4-8.2 G/DL Albumin 4.0 3.2-4.5 G/DL (JR MARQUEZ APRN) Medications Given in ED Current Medications Medications Dose Ordered Sig/Jackie Route Start Time Stop Time Status Last Admin Dose Admin Ceftriaxone Sodium 1000 mg/ Sodium Chloride 50 ml @ 100 mls/hr ONCE ONCE IV 03/08/17 18:15 03/08/17 18:44 DC 03/08/17 18:14 100 MLS/HR Diphenhydramine HCl 25 mg ONCE ONCE IVP 03/08/17 17:45 03/08/17 17:46 DC 03/08/17 17:41 25 MG Fentanyl Citrate 50 mcg ONCE ONCE IVP 03/08/17 17:45 03/08/17 17:46 DC 03/08/17 17:41 50 MCG Insulin Human Regular 5 unit ONCE ONCE IV 03/08/17 18:15 03/08/17 18:16 DC 03/08/17 18:13 5 UNIT Insulin Human Regular 15 unit ONCE ONCE IV 03/08/17 17:00 03/08/17 17:01 DC 03/08/17 17:05 15 UNIT Promethazine HCl 25 mg ONCE ONCE TX 03/08/17 17:45 03/08/17 17:46 DC 03/08/17 17:40 25 MG Sodium Chloride 500 ml @ 0 mls/hr Q0M ONCE IV 03/08/17 18:08 03/08/17 18:09 DC 03/08/17 18:13 500 MLS/HR Sodium Chloride 1,000 ml @ 0 mls/hr Q0M ONCE IV 03/08/17 16:54 03/08/17 16:55 DC 03/08/17 17:05 1,000 MLS/HR (JR MARQUEZ APRN) Vital Signs/I&O Vital Sign - Last 12Hours 03/08/17 15:55 Temp 98.4 Pulse 90 Resp 18 B/P (MAP) 138/74 Pulse Ox 96 O2 Delivery Room Air (JR MARQUEZ APRN) Blood Pressure Mean: 95 Progress Note #1: Time: 18:09 Progress Note Patient was given 15 units of insulin in a 1 L normal saline bolus. Blood sugar is now 449 with that 1 L nearly complete. An additional 5 units of insulin in a 500 mL bag of saline has been ordered. Once glucose is to an acceptable level, patient will be discharged. Rocephin is being administered for right otitis media. Promethazine was given for nausea and fentanyl was administered for pain. Care of this patient was turned over to Jr Marquez at this time. Progress Note #2: Progress Note Patient's blood sugar dropped another 110 mg/dL after the 500 mL normal saline and 5 units of insulin. Patient was then discharged home. (WARD MUNGUIA MD) Diagnostic Imaging Diagonstic Imaging: Xray Plain Films/CT/US/NM/MRI: chest Comments Chest x-ray viewed by me and report reviewed. See report below: NAME: VALENTE HARPER [facility] REC#: [id number] PT STATUS: REG ER : 1960 PHYSICIAN: WARD MUNGUIA MD ADMIT DATE: 03/08/17/ER Signed Date of Exam:03/08/17 CHEST PA/LAT (2 VIEW) INDICATION: High blood sugar. Cough. EXAMINATION: Two views of the chest were obtained. FINDINGS: Normal heart size and vascularity. The lungs are clear. There is no effusion or pneumothorax. Port-A-Cath is present. IMPRESSION: No acute abnormality is seen with no change from 12/29/16. Dictated by: Dictated on workstation # [id number] Dict: 03/08/171727 Trans: 03/08/171736 [facility] [id number] Interpreted by: TALITA GEORGES MD Electronically signed by: TALITA GEORGES MD 03/08/171736 (WARD MUNGUIA MD) Departure Impression Impression: Primary Impression: Hypoglycemia associated with diabetes Additional Impressions: Otitis media Qualified Codes: H66.001 - Acute suppurative otitis media without spontaneous rupture of ear drum, right ear Nausea and vomiting Qualified Codes: R11.2 - Nausea with vomiting, unspecified Disposition: 01 HOME, SELF-CARE Condition: Improved Departure-Patient Inst. Decision time for Depature: 18:05 (WARD MUNGUIA MD) Referrals: NO,LOCAL PHYSICIAN (PCP) Primary Care Physician Patient Instructions: Ear Infections (Otitis Media), Hyperglycemia, Adult Add. Discharge Instructions: Follow-up with your primary care provider and beamer operator as soon as possible. Drink plenty of clear liquids. Complete your antibiotics as prescribed. Return to emergency room if symptoms worsen. Monitor your blood sugars closely and select injection sites not affected by scar tissue. Avoid sugars and carbohydrates as much as possible. All discharge instructions reviewed with patient and/or family. Voiced understanding. Scripts Promethazine HCl (Promethazine Suppository) 25 Mg Supp.rect 25 MG RC Q6H Y for NAUSEA/VOMITING-1ST LINE, #10 SUPP.RECT Prov: WARD MUNGUIA MD 03/08/17 Amoxicillin (Amoxicillin) 500 Mg Capsule 1000 MG PO BID, #40 CAP Prov: WARD MUNGUIA MD 03/08/17 WARD MUNGUIA MD Mar 08, 2017 17:57 JR MARQUEZ APRN Mar 08, 2017 19:03
[2017-03-08] MEDS ORDERED: NS IV 500 ML 500 ML ONE (18:07)
[2017-03-08] MEDS ORDERED: NS IV 500 ML 500 ML IV ONE (18:08)
[2017-03-08] MEDS ORDERED: AMOX500C2 PO (18:13)
[2017-03-08] MEDS ORDERED: PROM25SU44 RC (18:13)
[2017-03-08] MEDS ORDERED: cefTRIAXone INJECTION 1,000 MG in NS (IVPB) 50 ML IV ONE (18:15)
[2017-03-08 19:15] VITALS: BP 122/72
== END 2017-03-08 19:15 | disposition home or self-care (01) ==
LOC: EDUNIT# 15:46 → ER 15:48
DX: E11.65 Type 2 diabetes mellitus with hyperglycemia (principal); R11.2 Nausea with vomiting, unspecified; H66.91 Otitis media, unspecified, right ear; Z79.4 Long term (current) use of insulin; Z79.82 Long term (current) use of aspirin; Z79.899 Other long term (current) drug therapy
CPT/HCPCS: 36415; 71020; 80053; 81000; 82962; 83735; 85025; 96374; 96375; 96376

== ENCOUNTER 2017-03-14 14:50 | Emergency (ER) | payer MEDICARE ==
[~2017-03-14] VITALS: Ht 152.4 cm; Wt 79.5 kg
[~2017-03-14 14:50] MED LIST changes: +AMOX500C2 PO; +PROM25SU44 RC
[2017-03-14] MEDS ORDERED: ASPIRIN 81 MG CHEW (CHILDREN'S ASA) PO ONE (15:15)
[2017-03-14 15:22] LABS: BASOPHILS # (AUTO) 0.1 10^3/uL (0.0-0.1); BASOPHILS % (AUTO) 1 % (0-10); EOSINOPHILS # (AUTO) 0.4 10^3/uL (0.0-0.3); EOSINOPHILS % (AUTO) 3 % (0-10); LYMPHOCYTES # (AUTO) 3.3 X 10^3 (1.0-4.0); LYMPHOCYTES % (AUTO) 31 % (12-44); MEAN CORPUSCULAR HEMOGLOBIN 30 PG (25-34); MEAN CORPUSCULAR HGB CONC 34 G/DL (32-36); MEAN CORPUSCULAR VOLUME 86 FL (80-99); MEAN PLATELET VOLUME 10.5 FL (7.4-10.4); MONOCYTES # (AUTO) 0.5 X 10^3 (0.0-1.0); MONOCYTES % (AUTO) 5 % (0-12); NEUTROPHILS # (AUTO) 6.7 X 10^3 (1.8-7.8); NEUTROPHILS % (AUTO) 61 % (42-75); PLATELET COUNT 282 10^3/uL (130-400); RED BLOOD COUNT 4.55 10^6/uL (4.35-5.85); WHITE BLOOD COUNT 10.9 10^3/uL (4.3-11.0)
--- NOTE | 2017-03-14 15:23 | ED Chest Pain ---
General Chief Complaint: Chest Pain Stated Complaint: CP Nursing Triage Note: AMBULATORY TO ED 8 WITH REPORTS OF INTERMITTENT CHEST PAIN SINCE LAST NIGHT. PATIENT REPORTS THAT SHE DID NOT TAKE ANY OF HER MEDICATIONS THIS MORNING. Nursing Sepsis Screen: No Definite Risk Source: patient Exam Limitations: no limitations History of Present Illness Time seen by provider: 15:22 Initial Comments To ER with chest pain since last night. She has nausea which is chronic for her. She denies any syncope, near syncope or palpitations. Timing/Duration: constant Severity/Quality: moderate Location: central Radiation: no radiation ASA po RN PSYCHIATRIC: No NTG SL RN PSYCHIATRIC: No Associated Symptoms: No back pain Allergies and Home Medications Allergies Coded Allergies: ketorolac (Verified Allergy, Severe, ANAPHYLAXIS, PT TAKES ASA AT HOME, ) ondansetron (Verified Allergy, Intermediate, RASH, 07/19/14) RASH/ HIVES exenatide (Verified Allergy, Unknown, NAUSEA, 07/19/14) NON STOP VOMITING latex (Verified Allergy, Unknown, RASH, 07/19/14) metoclopramide (Verified Allergy, Unknown, RESTLESS LEGS, 07/19/14) Home Medications Amlodipine Besylate 5 Mg Tablet, 5 MG PO DAILY, (Reported) Amoxicillin 500 Mg Capsule, 1,000 MG PO BID, #40 Prescribed by: WARD BEE on 03/08/17 1813 Aspirin 81 Mg Tablet.dr, 81 MG PO DAILY, (Reported) Atorvastatin Calcium 20 Mg Tablet, 20 MG PO HS, (Reported) Fluticasone/Vilanterol 1 Each Blst.w.dev, 1 PUFF IH DAILY, (Reported) Gabapentin 300 Mg Capsule, 600 MG PO TID, (Reported) TAKES 2 (300 MG) CAPSULES Ibuprofen 200 Mg Tablet, 400 MG PO TID, #30 Prescribed by: AZEEM MELVIN on 12/30/16 1019 Insulin Detemir 100 Unit/1 Ml Insuln.pen, 50 UNITS SQ BID, (Reported) Insulin Lispro 100 Unit/1 Ml Insuln.pen, 0 SQ AC, (Reported) PER SLIDING SCALE 1 UNIT PER 3 CARBOHYDRATES 1 UNIT FOR EVERY 15 > 150 Omeprazole 20 Mg Capsule.dr, 20 MG PO DAILY, (Reported) Oxycodone HCl/Acetaminophen 1 Each Tablet, 1 EACH PO Q4H PRN for PAIN-MILD TO MODERATE, (Reported) Promethazine HCl 25 Mg Supp.rect, 25 MG RC Q6H PRN for NAUSEA/VOMITING-1ST LINE , #10 Prescribed by: WARD BEE on 03/08/173 Review of Systems Constitutional: see HPI EENTM: No Symptoms Reported Respiratory: No Symptoms Reported Cardiovascular: See HPI, Chest Pain Gastrointestinal: No Symptoms Reported Genitourinary: No Symptoms Reported Musculoskeletal: no symptoms reported Skin: no symptoms reported Psychiatric/Neurological: No Symptoms Reported Endocrine: No Symptoms Reported Past Vltbymu-Ytgflj-Fevxkv Hx Patient Social History Alcohol Use: Occasionally Uses Recreational Drug Use: No Smoking Status: Current Everyday Smoker Type Used: Cigarettes 2nd Hand Smoke Exposure: No Recent Foreign Travel: No Contact w/Someone Who Travel: No Recent Infectious Disease Expo: No Recent Hopitalizations: No Immunizations Up To Date Tetanus Booster (TDap): Less than 5yrs PED Vaccines UTD: No Date of Pneumonia Vaccine: Dec 12, 2013 Date of Influenza Vaccine: Nov 23, 2016 Seasonal Allergies Seasonal Allergies: No Surgeries HX Surgeries: Yes Surgeries: Cardiac, Coronary Stent, Ear Surgery, Gallbladder, Orthopedic, Renal Respiratory Hx Respiratory Disorders: Yes Respiratory Disorders: Chronic Bronchitis Cardiovascular Hx Cardiac Disorders: Yes Cardiac Disorders: Chronic Edema/Swelling, Coronary Artery Disease, Deep Vein Thrombosis, High Cholesterol, Hypertension Neurological Hx Neurological Disorders: Yes Neurological Disorders: Headaches /Migraines, Neuropathy 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 System Hx 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 Disorders: No Sexually Transmitted Disease: No HIV/AIDS: No 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 Disorders: Denies [employer] History: Menopausal Genitourinary Hx Genitourinary Disorders: Yes Genitourinary Disorders: Bladder Infection, Kidney Stones, Renal Failure Gastrointestinal Hx Gastrointestinal Disorders: Yes Gastrointestinal Disorders: Gastroesophageal Reflux, Chronic Constipation Musculoskeletal Hx Musculoskeletal Disorders: Yes Musculoskeletal Disorders: Degenerate Disk Disease, Chronic Back Pain Endocrine Hx Endocrine Disorders: Yes Endocrine Disorders: Diabetes, Insulin dep HEENT HX ENT Disorders: No HEENT Disorders: Chronic Ear Infection Loss of Vision: Denies Hearing Impairment: Hard of Hearing Cancer Hx Cancer: No Psychosocial Hx Psychiatric Problems: Yes Behavioral Health Disorders: Anxiety Integumentary HX Skin/Integumentary Disorder: No Skin/Integumentary Disorders: Psoriasis Blood Transfusions Hx Blood Disorders: No Adverse Reaction to a Blood Tr: No Family Medical History Significant Family History: No Pertinent Family Hx Family Medial History: Cancer of mouth 19 FATHER ( of esophogeal cancer.) Cardiovascular disease 19 MOTHER G8 BROTHER Completed stroke 19 FATHER G8 BROTHER Diabetes mellitus G8 BROTHER FH: lung cancer 19 MOTHER Hypertension 19 FATHER Kidney disease 19 FATHER Myocardial infarction 19 MOTHER G8 BROTHER Respiratory disorder No Family History of: AIDS Physical Exam Vital Signs Vital Sign - Last 12Hours 03/14/17 14:56 Temp 100.0 Pulse 88 Resp 16 B/P (MAP) 193/99 Pulse Ox 97 O2 Delivery Room Air Capillary Refill : Less Than 3 Seconds General Appearance: No Apparent Distress, WD/WN HEENT: PERRL/EOMI, TMs Normal Neck: Full Range of Motion, Normal Inspection Respiratory: Normal Breath Sounds, No Accessory Muscle Use, No Respiratory Distress Cardiovascular: Regular Rate, Rhythm, Normal Peripheral Pulses Gastrointestinal: Non Tender, Soft Extremity: Normal Capillary Refill, Normal Inspection Neurologic/Psychiatric: Alert, Oriented x3, No Motor/Sensory Deficits Skin: Normal Color, Warm/Dry Progress/Results/Core Measures Results/Orders Lab Results Laboratory Tests Test 03/14/17 15:14 Range/Units White Blood Count 10.9 4.3-11.0 10^3/uL Red Blood Count 4.55 4.35-5.85 10^6/uL Hemoglobin 13.4 11.5-16.0 G/DL Hematocrit 39 35-52 % Mean Corpuscular Volume 86 80-99 FL Mean Corpuscular Hemoglobin 30 25-34 PG Mean Corpuscular Hemoglobin Concent 34 32-36 G/DL Red Cell Distribution Width 13.0 10.0-14.5 % Platelet Count 282 130-400 10^3/uL Mean Platelet Volume 10.5 H 7.4-10.4 FL Neutrophils (%) (Auto) 61 42-75 % Lymphocytes (%) (Auto) 31 12-44 % Monocytes (%) (Auto) 5 0-12 % Eosinophils (%) (Auto) 3 0-10 % Basophils (%) (Auto) 1 0-10 % Neutrophils # (Auto) 6.7 1.8-7.8 X 10^3 Lymphocytes # (Auto) 3.3 1.0-4.0 X 10^3 Monocytes # (Auto) 0.5 0.0-1.0 X 10^3 Eosinophils # (Auto) 0.4 H 0.0-0.3 10^3/uL Basophils # (Auto) 0.1 0.0-0.1 10^3/uL Prothrombin Time 11.6 L 12.2-14.7 SEC INR Comment 0.9 0.8-1.4 Activated Partial Thromboplast Time 23 L 24-35 SEC Sodium Level 136 135-145 MMOL/L Potassium Level 4.2 3.6-5.0 MMOL/L Chloride Level 104 98-107 MMOL/L Carbon Dioxide Level 17 L 21-32 MMOL/L Anion Gap 15 H 5-14 MMOL/L Blood Urea Nitrogen 15 7-18 MG/DL Creatinine 1.20 0.60-1.30 MG/DL Estimat Glomerular Filtration Rate 46 BUN/Creatinine Ratio 13 Glucose Level 481 *H 70-105 MG/DL Calcium Level 9.0 8.5-10.1 MG/DL Magnesium Level 2.0 1.8-2.4 MG/DL Total Bilirubin 0.2 0.1-1.0 MG/DL Aspartate Amino Transf (AST/SGOT) 7 5-34 U/L Alanine Aminotransferase (ALT/SGPT) 8 0-55 U/L Alkaline Phosphatase 94 40-136 U/L Myoglobin 20.2 10.0-92.0 NG/ML Troponin I < 0.30 <0.30 NG/ML Total Protein 6.9 6.4-8.2 G/DL Albumin 3.9 3.2-4.5 G/DL My Orders Orders - JR MARIE APRN Cbc With Automated Diff (03/14/17 15:02) Magnesium (03/14/17 15:02) Chest 1 View, Ap/Pa Only (03/14/17 15:02) Ekg Tracing (03/14/17 15:02) Cardiac Profile 1 (03/14/17 15:02) Comprehensive Metabolic Panel (03/14/17 15:02) Myoglobin Serum (03/14/17 15:02) Protime With Inr (03/14/17 15:02) Partial Thromboplastin Time (03/14/17 15:02) O2 (03/14/17 15:02) Monitor-Rhythm Ecg Trace Only (03/14/17 15:02) Lipid Panel (03/15/17 06:00) Aspirin Chewable Tablet (Baby Aspirin Ch (03/14/17 15:15) Saline Lock/Iv-Start (03/14/17 15:02) Ns Iv 1000 Ml (Sodium Chloride 0.9%) (03/14/17 16:00) Insulin (Regular) Human (Humulin R (Per (03/14/17 16:00) Insulin (Regular) Human (Humulin R (Per (03/14/17 15:52) Prochlorperazine Injection (Compazine In (03/14/17 16:15) Diphenhydramine Injection (Benadryl Inje (03/14/17 16:15) Medications Given in ED Current Medications Medications Dose Ordered Sig/Jackie Route Start Time Stop Time Status Last Admin Dose Admin Aspirin 324 mg ONCE ONCE PO 03/14/17 15:15 03/14/17 15:16 DC 03/14/17 15:19 324 MG Insulin Human Regular 10 unit ONCE ONCE IV 03/14/17 16:00 03/14/17 16:01 DC 03/14/17 16:00 10 UNIT Vital Signs/I&O Vital Sign - Last 12Hours 03/14/17 03/14/17 03/14/17 03/14/17 14:56 14:56 15:00 15:19 Temp 100.0 100.0 Pulse 88 Resp 16 B/P (MAP) 193/99 Pulse Ox 97 97 O2 Delivery Room Air Room Air Room Air Blood Pressure Mean: 130 Departure Impression Impression: Primary Impression: Uncontrolled diabetes mellitus Additional Impression: Chest pain Disposition: 01 HOME, SELF-CARE Condition: Stable Departure-Patient Inst. Decision time for Depature: 16:08 Referrals: [facility] (PCP/Family) Primary Care Physician Patient Instructions: Chest Pain (DC) Add. Discharge Instructions: 1. Check your blood sugars before each meal and at bedtime. Use your insulin accordingly. All discharge instructions reviewed with patient and/or family. Voiced understanding. JR MARIE APRN Mar 14, 2017 15:23
[2017-03-14 15:31] LABS: INR 0.9 (0.8-1.4); PROTHROMBIN TIME PATIENT 11.6 SEC (12.2-14.7)
--- NOTE | 2017-03-14 15:34 | Diagnostic Imaging Report ---
INDICATION: Chest pain. EXAMINATION: Portable chest at 3:23 p.m. FINDINGS: Right IJ Port-A-Cath tip projects over the right atrium. Heart size and pulmonary vascularity are normal. Lungs are clear. There are no effusions or pneumothoraces. IMPRESSION: No acute abnormalities in the chest. Dictated by: Dictated on workstation # [id number]
[2017-03-14 15:41] LABS: ALANINE AMINOTRANSFERASE 8 U/L (0-55); ALBUMIN 3.9 G/DL (3.2-4.5); ANION GAP 15 MMOL/L (5-14); ASPARTATE AMINO TRANSFERASE 7 U/L (5-34); BILIRUBIN,TOTAL 0.2 MG/DL (0.1-1.0); BLOOD UREA NITROGEN 15 MG/DL (7-18); BUN/CREATININE RATIO 13; CARBON DIOXIDE 17 MMOL/L (21-32); CHLORIDE 104 MMOL/L (98-107); GFR ESTIMATED 46; POTASSIUM 4.2 MMOL/L (3.6-5.0); SODIUM 136 MMOL/L (135-145); TOTAL PROTEIN 6.9 G/DL (6.4-8.2)
[2017-03-14 15:44] LABS: GLUCOSE 481 MG/DL (70-105)
[2017-03-14 15:47] LABS: MYOGLOBIN SERUM 20.2 NG/ML (10.0-92.0)
[2017-03-14] MEDS ORDERED: inSUlin (REGULAR) HUMAN 1 UNIT/0.01 ML (CHARGE PER UNIT) ONE (15:52)
[2017-03-14] MEDS ORDERED: inSUlin (REGULAR) HUMAN 1 UNIT/0.01 ML (CHARGE PER UNIT) IV ONE (16:00)
[2017-03-14] MEDS ORDERED: NS IV 1000 ML 1,000 ML IV SCH (16:00)
[2017-03-14] MEDS ORDERED: PROCHLORPERAZINE 10 MG/2ML INJ (COMPAZINE) IV ONE (16:15)
[2017-03-14] MEDS ORDERED: diphenhydrAMINE 50 MG/ML INJ (BENADRYL) IVP ONE (16:15)
[2017-03-14 17:04] VITALS: BP 162/91
== END 2017-03-14 17:04 | disposition home or self-care (01) ==
LOC: EDUNIT# 14:50 → ER 14:52
DX: E11.65 Type 2 diabetes mellitus with hyperglycemia (principal); I10 Essential (primary) hypertension; I25.10 Atherosclerotic heart disease of native coronary artery without angina pectoris; F17.210 Nicotine dependence, cigarettes, uncomplicated; Z79.4 Long term (current) use of insulin; Z79.899 Other long term (current) drug therapy; Z95.5 Presence of coronary angioplasty implant and graft
CPT/HCPCS: 36415; 71010; 80053; 82962; 83735; 83874; 84484; 85025; 85610; 85730; 93005; 93041; 96361; 96374; 96375

== ENCOUNTER 2017-05-13 12:46 | Outpatient (RCR) | payer MEDICARE, OTHER ==
[2017-02-15 13:38] VITALS: BP 123/70
[2017-04-15 13:43] VITALS: BP 128/73
[~2017-05-13] VITALS: Ht 152.4 cm; Wt 79.5 kg
[~2017-05-13 12:46] MED LIST changes: +CATHETER FLUSH 10 ML SYR IV PRN; +HEParin (CENTRAL IV FLUSH) 500 UNIT/5 ML SYR IV ONE; +HEParin (CENTRAL IV FLUSH) 500 UNIT/5 ML SYR ONE
[2017-05-13] MEDS ORDERED: HEParin (CENTRAL IV FLUSH) 500 UNIT/5 ML SYR ONE (12:47)
[2017-05-13 15:52] VITALS: BP 137/68
== END 2017-05-16 | disposition home or self-care (01) ==
LOC: SDC 12:46
PROVIDERS: ATTEND Surgery
DX: I87.2 Venous insufficiency (chronic) (peripheral) (principal)
CPT/HCPCS: 96523

== ENCOUNTER 2017-05-13 13:16 | Emergency (ER) | payer MEDICARE ==
[~2017-05-13] VITALS: Ht 152.4 cm; Wt 79.5 kg
[~2017-05-13 13:16] MED LIST changes: -CATHETER FLUSH 10 ML SYR IV PRN; -HEParin (CENTRAL IV FLUSH) 500 UNIT/5 ML SYR IV ONE; -HEParin (CENTRAL IV FLUSH) 500 UNIT/5 ML SYR ONE
[2017-05-13 13:46] LABS: BILIRUBIN,URINE NEGATIVE (NEGATIVE); KETONES,URINE NEGATIVE (NEGATIVE); LEUKOCYTE ESTERASE ,URINE NEGATIVE (NEGATIVE); NITRITE,URINE NEGATIVE (NEGATIVE); PH,URINE 5 (5-9); PROTEIN,URINE 2+ (NEGATIVE); UROBILINOGEN,URINE NORMAL (NORMAL)
--- NOTE | 2017-05-13 13:54 | ED General ---
General Stated Complaint: HIGH BS Source of Information: Patient Exam Limitations: No Limitations History of Present Illness Time Seen by Provider: 13:52 Initial Comments Patient presents to ER with reports of high fasting blood sugars in the morning for the past 2-3 mornings in the 400-500 range. She believes this secondary to infection which is coming from her lungs as she has a productive cough or possibly a bladder infection as she has "pain in the end of my urethra". She states that she has not missed her doses of insulin. Severity: Moderate Associated Systoms: Cough, Nausea/Vomiting Allergies and Home Medications Allergies Coded Allergies: ketorolac (Verified Allergy, Severe, ANAPHYLAXIS, PT TAKES ASA AT HOME, ) ondansetron (Verified Allergy, Intermediate, RASH, 07/19/14) RASH/ HIVES exenatide (Verified Allergy, Unknown, NAUSEA, 07/19/14) NON STOP VOMITING latex (Verified Allergy, Unknown, RASH, 07/19/14) metoclopramide (Verified Allergy, Unknown, RESTLESS LEGS, 07/19/14) Home Medications Amlodipine Besylate 5 Mg Tablet, 5 MG PO DAILY, (Reported) Amoxicillin 500 Mg Capsule, 1,000 MG PO BID, #40 Prescribed by: WARD BEE on 03/08/17 1813 Aspirin 81 Mg Tablet.dr, 81 MG PO DAILY, (Reported) Atorvastatin Calcium 20 Mg Tablet, 20 MG PO HS, (Reported) Fluticasone/Vilanterol 1 Each Blst.w.dev, 1 PUFF IH DAILY, (Reported) Gabapentin 300 Mg Capsule, 600 MG PO TID, (Reported) TAKES 2 (300 MG) CAPSULES Ibuprofen 200 Mg Tablet, 400 MG PO TID, #30 Prescribed by: AZEEM MELVIN on 12/30/16 1019 Insulin Detemir 100 Unit/1 Ml Insuln.pen, 50 UNITS SQ BID, (Reported) Insulin Lispro 100 Unit/1 Ml Insuln.pen, 0 SQ AC, (Reported) PER SLIDING SCALE 1 UNIT PER 3 CARBOHYDRATES 1 UNIT FOR EVERY 15 > 150 Omeprazole 20 Mg Capsule.dr, 20 MG PO DAILY, (Reported) Oxycodone HCl/Acetaminophen 1 Each Tablet, 1 EACH PO Q4H PRN for PAIN-MILD TO MODERATE, (Reported) Promethazine HCl 25 Mg Supp.rect, 25 MG RC Q6H PRN for NAUSEA/VOMITING-1ST LINE , #10 Prescribed by: WARD BEE on 03/08/17 1813 Constitutional: see HPI, No chills, No fever EENTM: see HPI Respiratory: see HPI, cough, No dyspnea on exertion, No short of breath Cardiovascular: see HPI, No chest pain Gastrointestinal: No abdominal pain, nausea, No vomiting Genitourinary: see HPI, dysuria Musculoskeletal: no symptoms reported Skin: no symptoms reported Psychiatric/Neurological: No Symptoms Reported Hematologic/Lymphatic: No Symptoms Reported Immunological/Allergic: no symptoms reported Past Bgwcgbn-Alwttw-Aijnzn Hx Patient Social History Type Used: Cigarettes 2nd Hand Smoke Exposure: No Recent Foreign Travel: No Contact w/Someone Who Travel: No Recent Hopitalizations: No Immunizations Up To Date Tetanus Booster (TDap): Less than 5yrs PED Vaccines UTD: No Date of Pneumonia Vaccine: Dec 12, 2013 Date of Influenza Vaccine: Nov 23, 2016 Seasonal Allergies Seasonal Allergies: No Surgeries HX Surgeries: Yes Surgeries: Cardiac, Coronary Stent, Ear Surgery, Gallbladder, Orthopedic, Renal Respiratory Hx Respiratory Disorders: Yes Respiratory Disorders: Chronic Bronchitis Cardiovascular Hx Cardiac Disorders: Yes Cardiac Disorders: Chronic Edema/Swelling, Coronary Artery Disease, Deep Vein Thrombosis, High Cholesterol, Hypertension Neurological Hx Neurological Disorders: Yes Neurological Disorders: Headaches /Migraines, Neuropathy 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 System Hx 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 Disorders: No Sexually Transmitted Disease: No HIV/AIDS: No 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 Disorders: Denies [employer] History: Menopausal Genitourinary Hx Genitourinary Disorders: Yes Genitourinary Disorders: Bladder Infection, Kidney Stones, Renal Failure Gastrointestinal Hx Gastrointestinal Disorders: Yes Gastrointestinal Disorders: Gastroesophageal Reflux, Chronic Constipation Musculoskeletal Hx Musculoskeletal Disorders: Yes Musculoskeletal Disorders: Degenerate Disk Disease, Chronic Back Pain Endocrine Hx Endocrine Disorders: Yes Endocrine Disorders: Diabetes, Insulin dep HEENT HX ENT Disorders: No HEENT Disorders: Chronic Ear Infection Loss of Vision: Denies Hearing Impairment: Hard of Hearing Cancer Hx Cancer: No Psychosocial Hx Psychiatric Problems: Yes Behavioral Health Disorders: Anxiety Integumentary HX Skin/Integumentary Disorder: No Skin/Integumentary Disorders: Psoriasis Blood Transfusions Hx Blood Disorders: No Adverse Reaction to a Blood Tr: No Family Medical History Significant Family History: No Pertinent Family Hx Family Medial History: Cancer of mouth 19 FATHER ( of esophogeal cancer.) Cardiovascular disease 19 MOTHER G8 BROTHER Completed stroke 19 FATHER G8 BROTHER Diabetes mellitus G8 BROTHER FH: lung cancer 19 MOTHER Hypertension 19 FATHER Kidney disease 19 FATHER Myocardial infarction 19 MOTHER G8 BROTHER Respiratory disorder No Family History of: AIDS Physical Exam Vital Signs Vital Sign - Last 12Hours 05/13/17 13:27 Pulse 88 Resp 18 B/P (MAP) 112/70 Pulse Ox 92 Capillary Refill : General Appearance: No Apparent Distress, WD/WN, Chronically ill Eyes: Bilateral Eye EOMI, Bilateral Eye Normal Inspection, Bilateral Eye PERRL HEENT: PERRL/EOMI, TMs Normal Neck: Full Range of Motion, Supple Respiratory: Lungs Clear, Normal Breath Sounds, No Accessory Muscle Use, No Respiratory Distress Cardiovascular: Regular Rate, Rhythm, Normal Peripheral Pulses Gastrointestinal: Normal Bowel Sounds, Non Tender, Soft Extremity: Normal Capillary Refill, Normal Inspection, Normal Range of Motion Neurologic/Psychiatric: Alert, Oriented x3, No Motor/Sensory Deficits Skin: Normal Color, Warm/Dry Progress/Results/Core Measures Results/Orders Lab Results Laboratory Tests Test 05/13/17 13:27 05/13/17 13:52 Range/Units Urine Color YELLOW Urine Clarity CLEAR Urine pH 5 5-9 Urine Specific [place] 1.010 L 1.016-1.022 Urine Protein 2+ H NEGATIVE Urine Glucose (UA) 4+ H NEGATIVE Urine Ketones NEGATIVE NEGATIVE Urine Nitrite NEGATIVE NEGATIVE Urine Bilirubin NEGATIVE NEGATIVE Urine Urobilinogen NORMAL NORMAL MG/DL Urine Leukocyte Esterase NEGATIVE NEGATIVE Urine RBC (Auto) NEGATIVE NEGATIVE Urine RBC NONE /HPF Urine WBC 2-5 /HPF Urine Squamous Epithelial Cells 0-2 /HPF Urine Crystals NONE /LPF Urine Bacteria MODERATE H /HPF Urine Casts NONE /LPF Urine Mucus NEGATIVE /LPF Urine Culture Indicated YES White Blood Count 10.3 4.3-11.0 10^3/uL Red Blood Count 4.31 L 4.35-5.85 10^6/uL Hemoglobin 12.7 11.5-16.0 G/DL Hematocrit 37 35-52 % Mean Corpuscular Volume 87 80-99 FL Mean Corpuscular Hemoglobin 30 25-34 PG Mean Corpuscular Hemoglobin Concent 34 32-36 G/DL Red Cell Distribution Width 13.7 10.0-14.5 % Platelet Count 222 130-400 10^3/uL Mean Platelet Volume 10.5 H 7.4-10.4 FL Neutrophils (%) (Auto) 63 42-75 % Lymphocytes (%) (Auto) 27 12-44 % Monocytes (%) (Auto) 4 0-12 % Eosinophils (%) (Auto) 5 0-10 % Basophils (%) (Auto) 1 0-10 % Neutrophils # (Auto) 6.5 1.8-7.8 X 10^3 Lymphocytes # (Auto) 2.8 1.0-4.0 X 10^3 Monocytes # (Auto) 0.5 0.0-1.0 X 10^3 Eosinophils # (Auto) 0.5 H 0.0-0.3 10^3/uL Basophils # (Auto) 0.1 0.0-0.1 10^3/uL Sodium Level 128 L 135-145 MMOL/L Potassium Level 4.6 3.6-5.0 MMOL/L Chloride Level 99 98-107 MMOL/L Carbon Dioxide Level 19 L 21-32 MMOL/L Anion Gap 10 5-14 MMOL/L Blood Urea Nitrogen 25 H 7-18 MG/DL Creatinine 1.54 H 0.60-1.30 MG/DL Estimat Glomerular Filtration Rate 35 BUN/Creatinine Ratio 16 0-20 Glucose Level 782 *H 70-105 MG/DL Calcium Level 9.0 8.5-10.1 MG/DL Total Bilirubin 0.4 0.1-1.0 MG/DL Aspartate Amino Transf (AST/SGOT) 9 5-34 U/L Alanine Aminotransferase (ALT/SGPT) 9 0-55 U/L Alkaline Phosphatase 87 40-136 U/L Total Protein 6.8 6.4-8.2 GM/DL Albumin 3.7 3.2-4.5 GM/DL My Orders Orders - JR MARIE APRN Ua Culture If Indicated (05/13/17 13:38) Cbc With Automated Diff (05/13/17 13:38) Comprehensive Metabolic Panel (05/13/17 13:38) Saline Lock/Iv-Start (05/13/17 13:38) Accucheck Stat ONCE (05/13/17 13:38) Diphenhydramine Injection (Benadryl Inje (05/13/17 14:00) Prochlorperazine Injection (Compazine In (05/13/17 14:00) Chest Pa/Lat (2 View) (05/13/17 13:50) Ns Iv 1000 Ml (Sodium Chloride 0.9%) (05/13/17 14:30) Insulin (Regular) Human (Humulin R (Per (05/13/17 14:30) Urine Culture (05/13/17 13:27) Medications Given in ED Current Medications Medications Dose Ordered Sig/Jackie Route Start Time Stop Time Status Last Admin Dose Admin Diphenhydramine HCl 25 mg ONCE ONCE IVP 05/13/17 14:00 05/13/17 14:01 DC 05/13/17 14:02 25 MG Prochlorperazine Edisylate 10 mg ONCE ONCE IV 05/13/17 14:00 05/13/17 14:01 DC 05/13/17 14:01 10 MG Vital Signs/I&O Vital Sign - Last 12Hours 05/13/17 13:27 Pulse 88 Resp 18 B/P (MAP) 112/70 Pulse Ox 92 Departure Impression Impression: Primary Impression: Renal insufficiency Additional Impression: Uncontrolled diabetes mellitus Disposition: HOME, SELF-CARE Condition: Stable Departure-Patient Inst. Decision time for Depature: 14:34 Referrals: [facility] [place] (PCP/Family) Primary Care Physician Patient Instructions: Hyperglycemia, Adult Add. Discharge Instructions: 1. Return to ER for any concerns 2. Take your insulin as directed and drink plenty of fluids. If you're out of insulin, refill this at the [facility]. Copy Copies To 1: WINDY GRIFFIN PETER J APRN May 13, 2017 13:54
[2017-05-13 13:58] LABS: BASOPHILS # (AUTO) 0.1 10^3/uL (0.0-0.1); BASOPHILS % (AUTO) 1 % (0-10); EOSINOPHILS # (AUTO) 0.5 10^3/uL (0.0-0.3); EOSINOPHILS % (AUTO) 5 % (0-10); LYMPHOCYTES # (AUTO) 2.8 X 10^3 (1.0-4.0); LYMPHOCYTES % (AUTO) 27 % (12-44); MEAN CORPUSCULAR HEMOGLOBIN 30 PG (25-34); MEAN CORPUSCULAR HGB CONC 34 G/DL (32-36); MEAN CORPUSCULAR VOLUME 87 FL (80-99); MEAN PLATELET VOLUME 10.5 FL (7.4-10.4); MONOCYTES # (AUTO) 0.5 X 10^3 (0.0-1.0); MONOCYTES % (AUTO) 4 % (0-12); NEUTROPHILS # (AUTO) 6.5 X 10^3 (1.8-7.8); NEUTROPHILS % (AUTO) 63 % (42-75); PLATELET COUNT 222 10^3/uL (130-400); RED BLOOD COUNT 4.31 10^6/uL (4.35-5.85); RED CELL DISTRIBUTION WIDTH 13.7 % (10.0-14.5); WHITE BLOOD COUNT 10.3 10^3/uL (4.3-11.0)
[2017-05-13] MEDS ORDERED: PROCHLORPERAZINE 10 MG/2ML INJ (COMPAZINE) IV ONE (14:00)
[2017-05-13] MEDS ORDERED: diphenhydrAMINE 50 MG/ML INJ (BENADRYL) IVP ONE (14:00)
[2017-05-13 14:16] LABS: ALBUMIN 3.7 GM/DL (3.2-4.5); BILIRUBIN,TOTAL 0.4 MG/DL (0.1-1.0); CREATININE SERUM 1.54 MG/DL (0.60-1.30); ICTERUS 0.4 (-100-1.9); POTASSIUM 4.6 MMOL/L (3.6-5.0); TOTAL PROTEIN 6.8 GM/DL (6.4-8.2)
[2017-05-13 14:23] LABS: SQUAMOUS EPITHELIAL CELL,UR 0-2 /HPF
[2017-05-13] MEDS ORDERED: NS IV 1000 ML 1,000 ML IV SCH ×3 (14:30→16:30)
[2017-05-13] MEDS ORDERED: inSUlin (REGULAR) HUMAN 1 UNIT/0.01 ML (CHARGE PER UNIT) IV ONE ×3 (14:30→16:30)
[2017-05-13] MEDS ORDERED: ACETAMINOPHEN 500 MG TAB (TYLENOL) PO ONE (14:45)
--- NOTE | 2017-05-13 14:50 | Diagnostic Imaging Report ---
INDICATION: Hyperglycemia, chest pain. FINDINGS: The lungs are clear. The heart size and vascularity are normal. There is no effusion or pneumothorax. IMPRESSION: Negative. Dictated by: Dictated on workstation # [id number]
[2017-05-13 17:35] VITALS: BP 119/66
--- OUTSIDE RECORDS SUMMARY | 2017-05-17 14:14 | XMS REPORT | Continuity of Care Document ---
Author Author [facility] of [facility] Address Unknown Phone Unavailable Allergies Active Description Code Type Severity Reaction Onset Reported/Identified Relationship to Patient Clinical Status Yes ketorolac [id number] Drug Allergy Severe ANAPHYLAXIS 07/19/2014 Yes ondansetron [id number] Drug Allergy Moderate RASH 07/19/2014 Yes exenatide [id number] Drug Allergy Unknown NAUSEA 07/19/2014 Yes latex [id number] Drug Allergy Unknown RASH 07/19/2014 Yes metoclopramide [id number] Drug Allergy Unknown RESTLESS LEGS 07/19/2014 Yes latex Drug Allergy N/A N/A 08/02/2014 Yes Reglan Drug Allergy N/A N/A 08/02/2014 Yes Toradol Drug Allergy N/A N/A 08/02/2014 Yes latex Drug Allergy N/A N/A 08/02/2014 Yes Reglan Drug Allergy N/A N/A 08/02/2014 Yes Toradol Drug Allergy N/A N/A 08/02/2014 Yes Zofran (as hydrochloride) Drug Allergy N/A N/A 08/02/2014 Yes ketorolac [id number] Drug Allergy Severe ANAPHYLAXIS, PT 07/15/2015 Medications Problems Date Dx Coded Attending Type Code Diagnosis Diagnosed By 06/19/2008 WINDY GRIFFIN DO 307.47 SI DYSSOMNIA NOS 06/19/2008 WINDY GRIFFIN DO 314.00 CD ADHD INATTENTIVE 06/19/2008 STEFANY PACE APRN R 307.47 SI DYSSOMNIA NOS 06/19/2008 GLENYS PACE APRNINA R 314.00 CD ADHD INATTENTIVE 06/19/2008 WINDY GRIFFIN DO 307.47 SI DYSSOMNIA NOS 06/19/2008 WINDY GRIFFIN DO 314.00 CD ADHD INATTENTIVE 06/19/2008 STEFANY PACE APRN R 307.47 SI DYSSOMNIA NOS 06/19/2008 SANJEEV CAMARGO STEFANY R 314.00 CD ADHD INATTENTIVE 06/19/2008 SANJEEV CAMARGO, STEFANY R 307.47 SI DYSSOMNIA NOS 06/19/2008 SANJEEV CAMARGO, STEFANY R 314.00 CD ADHD INATTENTIVE 06/19/2008 CATRACHO SOUSA APRN T 307.47 SI DYSSOMNIA NOS 06/19/2008 CATRACHO SOUSA APRN T 314.00 CD ADHD INATTENTIVE 06/19/2008 WHITE DDS, BRANDI D 307.47 SI DYSSOMNIA NOS 06/19/2008 WHITE DDS, BRANDI D 314.00 CD ADHD INATTENTIVE 06/19/2008 SANJEEV CAMARGO, STEFANY R 307.47 SI DYSSOMNIA NOS 06/19/2008 SANJEEV CAMARGO, STEFANY R 314.00 CD ADHD INATTENTIVE 06/19/2008 GRIFFIN DO, WINDY K 307.47 SI DYSSOMNIA NOS 06/19/2008 GRIFFIN DO, WINDY K 314.00 CD ADHD INATTENTIVE 06/19/2008 GRIFFIN DO, WINDY K 307.47 SI DYSSOMNIA NOS 06/19/2008 GRIFFIN DO, WINDY K 314.00 CD ADHD INATTENTIVE 06/19/2008 SANJEEV CAMARGO, STEFANY R 307.47 SI DYSSOMNIA NOS 06/19/2008 SANJEEV CAMARGO, STEFANY R 314.00 CD ADHD INATTENTIVE 06/19/2008 SANJEEV CAMARGO, STEFANY R 307.47 SI DYSSOMNIA NOS 06/19/2008 SANJEEV CAMARGO, STEFANY R 314.00 CD ADHD INATTENTIVE 06/19/2008 ALBINA SAMUEL MD 307.47 SI DYSSOMNIA NOS 06/19/2008 ALBINA SAMUEL MD 314.00 CD ADHD INATTENTIVE 06/19/2008 KEVEN CAMARGO EH A 307.47 SI DYSSOMNIA NOS 06/19/2008 THEO BACA APRNIDI A 314.00 CD ADHD INATTENTIVE 07/21/2014 QUIN CHAVES MD Ot 008.8 VIRAL ENTERITIS NOS 07/21/2014 QUIN CHAVES MD Ot 250.02 DIAB JONATHAN WO COMPL, TYPE II OR UNSPEC TY 07/21/2014 QUIN CHAVES MD Ot 272.4 HYPERLIPIDEMIA NEC/NOS 07/21/2014 QUIN CHAVES MD Ot 276.9 ELECTROLYT/FLUID DIS NEC 07/21/2014 QUIN CHAVES MD Ot 305.1 TOBACCO USE DISORDER 07/21/2014 QUIN CHAVES MD Ot 305.23 CANNABIS ABUSE-IN REMISS 07/21/2014 QUIN CHAVES MD Ot 401.9 HYPERTENSION NOS 07/21/2014 ANASTACIO SMITH, QUIN Casarez Ot 530.81 ESOPHAGEAL REFLUX 07/21/2014 QUIN CHAVES MD Ot 564.1 IRRITABLE BOWEL SYNDROME 07/21/2014 QUIN CHAVES MD Ot 584.9 ACUTE RENAL FAILURE, UNSPECIFIED 07/21/2014 QUIN CHAVES MD Ot 593.9 RENAL URETERAL DIS NOS 07/21/2014 QUIN CHAVES MD Ot 599.0 URIN TRACT INFECTION NOS 07/21/2014 QUIN CHAVES MD Ot 696.0 PSORIATIC ARTHROPATHY 07/21/2014 QUIN CHAVES MD Ot 722.6 DISC DEGENERATION NOS 07/21/2014 QUIN CHAVES MD Ot 723.1 CERVICALGIA 07/21/2014 QUIN CHAVES MD Ot 723.4 BRACHIAL NEURITIS NOS 07/21/2014 QUIN CHAVES MD Ot 724.4 LUMBOSACRAL NEURITIS NOS 07/21/2014 QUIN CHAVES MD Ot 729.1 MYALGIA AND MYOSITIS NOS 07/21/2014 QUIN CHAVES MD Ot V12.51 HX-VENOUS THROMBOSIS EMBOLISM 07/21/2014 QUIN CHAVES MD Ot V15.81 HX OF PAST NONCOMPLIANCE 07/21/2014 QUIN CHAVES MD Ot V58.67 LONG-TERM (CURRENT) USE OF INSULIN 08/02/2014 STEFANY PACE APRN R 250.01 DIABETES MELLITUS WITHOUT MENTION OF COMPLICATION TYPE I [JUVENILE TYPE] NOT STATED UNCONTROLLED 08/02/2014 STEFANY PACE APRN R 723.1 CERVICALGIA 08/02/2014 STEFANY PACE APRN R 724.2 LUMBAGO 08/02/2014 TOMMY GRIFFIN DOA K 250.01 DIABETES MELLITUS WITHOUT MENTION OF COMPLICATION TYPE I [JUVENILE TYPE] NOT STATED UNCONTROLLED 08/02/2014 TOMMY GRIFFIN DOA K 723.1 CERVICALGIA 08/02/2014 WINDY GRIFFIN DO K 724.2 LUMBAGO 08/02/2014 STEFANY PACE APRN R 250.01 DIABETES MELLITUS WITHOUT MENTION OF COMPLICATION TYPE I [JUVENILE TYPE] NOT STATED UNCONTROLLED 08/02/2014 SANJEEV MECHANIC GENERAL OPERATIONAL TEST, STEFANY R 723.1 CERVICALGIA 08/02/2014 SANJEEV MECHANIC GENERAL OPERATIONAL TEST, STEFANY R 724.2 LUMBAGO 08/02/2014 GRIFFIN DO WINDY K 250.01 DIABETES MELLITUS WITHOUT MENTION OF COMPLICATION TYPE I [JUVENILE TYPE] NOT STATED UNCONTROLLED 08/02/2014 GRIFFIN DO, WINDY K 723.1 CERVICALGIA 08/02/2014 GRIFFIN DO WINDY K 724.2 LUMBAGO 08/02/2014 SANJEEV MECHANIC GENERAL OPERATIONAL TEST, STEFANY R 250.01 DIABETES MELLITUS WITHOUT MENTION OF COMPLICATION TYPE I [JUVENILE TYPE] NOT STATED UNCONTROLLED 08/02/2014 SANJEEV MECHANIC GENERAL OPERATIONAL TEST, STEFANY R 723.1 CERVICALGIA 08/02/2014 SANJEEV HUGGINSN, STEFANY R 724.2 LUMBAGO 08/02/2014 SANJEEV HUGGINSN, STEFANY R 250.01 DIABETES MELLITUS WITHOUT MENTION OF COMPLICATION TYPE I [JUVENILE TYPE] NOT STATED UNCONTROLLED 08/02/2014 SANJEEV CAMARGO STEFANY R 723.1 CERVICALGIA 08/02/2014 GLENYS PACE APRNINA R 724.2 LUMBAGO 08/02/2014 CATRACHO SOUSA APRN 250.01 DIABETES MELLITUS WITHOUT MENTION OF COMPLICATION TYPE I [JUVENILE TYPE] NOT STATED UNCONTROLLED 08/02/2014 CATRACHO SOUSA APRN 723.1 CERVICALGIA 08/02/2014 CATRACHO SOUSA APRN 724.2 LUMBAGO 08/02/2014 BENJY MATASBRANDI 250.01 DIABETES MELLITUS WITHOUT MENTION OF COMPLICATION TYPE I [JUVENILE TYPE] NOT STATED UNCONTROLLED 08/02/2014 WHITE DDS, BRANDI Casarez 723.1 CERVICALGIA 08/02/2014 WHITE DDS, BRANDI Casarez 724.2 LUMBAGO 08/02/2014 SANJEEV CAMARGO, STEFANY R 250.01 DIABETES MELLITUS WITHOUT MENTION OF COMPLICATION TYPE I [JUVENILE TYPE] NOT STATED UNCONTROLLED 08/02/2014 SANJEEV CAMARGO, STEFANY R 723.1 CERVICALGIA 08/02/2014 SANJEEV CAMARGO STEFANY R 724.2 LUMBAGO 08/02/2014 GRIFFIN DO WINDY K 250.01 DIABETES MELLITUS WITHOUT MENTION OF COMPLICATION TYPE I [JUVENILE TYPE] NOT STATED UNCONTROLLED 08/02/2014 GRIFFIN DO, WINDY K 723.1 CERVICALGIA 08/02/2014 GRIFFIN DO WINDY K 724.2 LUMBAGO 08/02/2014 GRIFFIN DO, WINDY K 250.01 DIABETES MELLITUS WITHOUT MENTION OF COMPLICATION TYPE I [JUVENILE TYPE] NOT STATED UNCONTROLLED 08/02/2014 WINDY GRIFFIN DO K 723.1 CERVICALGIA 08/02/2014 WINDY GRIFFIN DO K 724.2 LUMBAGO 08/02/2014 SANJEEV CAMARGO STEFANY R 250.01 DIABETES MELLITUS WITHOUT MENTION OF COMPLICATION TYPE I [JUVENILE TYPE] NOT STATED UNCONTROLLED 08/02/2014 SANJEEV MECHANIC GENERAL OPERATIONAL TEST, STEFANY R 723.1 CERVICALGIA 08/02/2014 SANJEEV MECHANIC GENERAL OPERATIONAL TEST, STEFANY R 724.2 LUMBAGO 08/02/2014 SANJEEV MECHANIC GENERAL OPERATIONAL TEST, STEFANY R 250.01 DIABETES MELLITUS WITHOUT MENTION OF COMPLICATION TYPE I [JUVENILE TYPE] NOT STATED UNCONTROLLED 08/02/2014 SANJEEV CAMARGO STEFANY R 723.1 CERVICALGIA 08/02/2014 SANJEEV CAMARGO STEFANY R 724.2 LUMBAGO 08/02/2014 ALBINA SAMUEL MD 250.01 DIABETES MELLITUS WITHOUT MENTION OF COMPLICATION TYPE I [JUVENILE TYPE] NOT STATED UNCONTROLLED 08/02/2014 ALBINA SAMUEL MD 723.1 CERVICALGIA 08/02/2014 ALBINA SAMUEL MD 724.2 LUMBAGO 08/02/2014 EH BACA APRN A 250.01 DIABETES MELLITUS WITHOUT MENTION OF COMPLICATION TYPE I [JUVENILE TYPE] NOT STATED UNCONTROLLED 08/02/2014 EH BACA APRN A 723.1 CERVICALGIA 08/02/2014 EH BACA APRN A 724.2 LUMBAGO 08/22/2014 TIA OJEDA MD Ot 250.02 DIAB JONATHAN WO COMPL, TYPE II OR UNSPEC TY 08/22/2014 TIA OJEDA MD Ot 272.0 PURE HYPERCHOLESTEROLEM 08/22/2014 TIA OEJDA MD Ot 276.1 HYPOSMOLALITY 08/22/2014 TIA OJEDA MD Ot 305.1 TOBACCO USE DISORDER 08/22/2014 TIA OJEDA MD Ot 338.29 OTHER CHRONIC PAIN 08/22/2014 TIA OJEDA MD Ot 389.9 HEARING LOSS NOS 08/22/2014 TIA OJEDA MD Ot 401.9 HYPERTENSION NOS 08/22/2014 TIA OJEDA MD Ot 564.1 IRRITABLE BOWEL SYNDROME 08/22/2014 TIA OJEDA MD Ot 723.1 CERVICALGIA 08/22/2014 TIA OJEDA MD Ot 787.01 NAUSEA WITH VOMITING 08/22/2014 TIA OJEDA MD Ot V04.81 ND FOR PROPHYLACTIC VACCIN AND INOCULATI 08/22/2014 TIA OJEDA MD Ot V45.89 POSTSURGICAL STATES NEC 08/22/2014 TIA OJEDA MD Ot V58.67 LONG-TERM (CURRENT) USE OF INSULIN 09/10/2014 TOMMY GRIFFIN DOA Tracee Ot 250.62 DIAB W NEURO MANIFEST, TYPE II OR UNSPEC 09/10/2014 TOMMY GRIFFIN DOA Tracee Ot 272.4 HYPERLIPIDEMIA NEC/NOS 09/10/2014 TOMMY GRIFFIN DOA Tracee Ot 276.1 HYPOSMOLALITY 09/10/2014 TOMMY GRIFFIN DOA Tracee Ot 300.00 ANXIETY STATE NOS 09/10/2014 TOMMY GRIFFIN DOA K Ot 305.1 TOBACCO USE DISORDER 09/10/2014 TOMMY GRIFFIN DOA Tracee Ot 338.29 OTHER CHRONIC PAIN 09/10/2014 TOMMY GRIFFIN DOA K Ot 389.9 HEARING LOSS NOS 09/10/2014 TOMMY GRIFFIN DOA K Ot 401.9 HYPERTENSION NOS 09/10/2014 TOMMY GRIFFIN DOA Tracee Ot 536.3 GASTROPARESIS 09/10/2014 WINDY GRIFFIN DO Ot 564.1 IRRITABLE BOWEL SYNDROME 09/10/2014 TOMMY GRIFFIN DOA Tracee Ot 593.9 RENAL URETERAL DIS NOS 09/10/2014 TOMMY GRIFFIN DOA Tracee Ot 696.1 OTHER PSORIASIS 09/10/2014 WINDY GRIFFIN DO Ot 723.1 CERVICALGIA 09/10/2014 TOMMY GRIFFIN DOA Tracee Ot V12.51 HX-VENOUS THROMBOSIS EMBOLISM 09/10/2014 TOMMY GRIFFIN DOA Tracee Ot V45.89 POSTSURGICAL STATES NEC 09/10/2014 WINDY GRIFFIN DO Ot V58.67 LONG-TERM (CURRENT) USE OF INSULIN 10/08/2014 ALBINA SAMUEL MD Ot 250.62 DIAB W NEURO MANIFEST, TYPE II OR UNSPEC 10/08/2014 ALBINA SAMUEL MD Ot 272.4 HYPERLIPIDEMIA NEC/NOS 10/08/2014 ALBINA SAMUEL MD Ot 305.1 TOBACCO USE DISORDER 10/08/2014 ALBINA SAMUEL MD Ot 338.29 OTHER CHRONIC PAIN 10/08/2014 ALBINA SAMUEL MD Ot 403.90 HYPTNSV CHR KID DIS, UNSPEC, W CHR KD ST 10/08/2014 ALBINA SAMUEL MD Ot 536.3 GASTROPARESIS 10/08/2014 ALBINA SAMUEL MD Ot 558.9 NONINF GASTROENTERIT NEC 10/08/2014 ALBINA SAMUEL MD Ot 564.1 IRRITABLE BOWEL SYNDROME 10/08/2014 ALBINA SAMUEL MD Ot 585.9 CHRONIC KIDNEY DISEASE, UNSPECIFIED 10/08/2014 ALBINA SAMUEL MD Ot 593.9 RENAL URETERAL DIS NOS 10/08/2014 ALBINA SAMUEL MD Ot 696.1 OTHER PSORIASIS 10/08/2014 ALBINA SAMUEL MD Ot V12.51 HX-VENOUS THROMBOSIS EMBOLISM 10/08/2014 ALBINA SAMUEL MD Ot V58.67 LONG-TERM (CURRENT) USE OF INSULIN 10/09/2014 CATRACHO SOUSA APRN 702.0 ACTINIC KERATOSIS 10/09/2014 BRANDI BURLESON DDS 702.0 ACTINIC KERATOSIS 10/09/2014 SANJEEV CAMARGO, STEFANY R 702.0 ACTINIC KERATOSIS 10/09/2014 WINDY GRIFFIN DO 702.0 ACTINIC KERATOSIS 10/09/2014 WINDY GRIFFIN DO 702.0 ACTINIC KERATOSIS 10/09/2014 SANJEEV CAMARGO, STEFANY R 702.0 ACTINIC KERATOSIS 10/09/2014 STEFANY PACE APRN R 702.0 ACTINIC KERATOSIS 10/09/2014 ALBINA SAMUEL MD 702.0 ACTINIC KERATOSIS 10/09/2014 EH BACA APRN 702.0 ACTINIC KERATOSIS 10/09/2014 ALBINA SAMUEL MD Ot 250.62 10/09/2014 ALBINA SAMUEL MD Ot 272.4 10/09/2014 ALBINA SAMUEL MD Ot 305.1 10/09/2014 ALBINA SAMUEL MD Ot 338.29 10/09/2014 ALBINA SAMUEL MD Ot 403.90 10/09/2014 ALBINA SAMUEL MD Ot 536.3 10/09/2014 ALBINA SAMUEL MD F Ot 558.9 10/09/2014 JIMMIE SMITH, ALBINA F Ot 564.1 10/09/2014 JIMMIE SMITH, ALBINA F Ot 585.9 10/09/2014 JIMMIE SMITH, ALBINA F Ot 593.9 10/09/2014 JIMMIE SMITH, ALBINA F Ot 696.1 10/09/2014 JIMMIE SMITH, ALBINA F Ot V12.51 10/09/2014 JIMMIE SMITH, ALBINA F Ot V58.67 10/09/2014 JIMMIE SMITH, ALBINA F Ot 250.62 10/09/2014 JIMMIE SMITH, ALBINA F Ot 272.4 10/09/2014 JIMMIE SMITH, ALBINA F Ot 305.1 10/09/2014 JIMMIE SMITH, ALBINA F Ot 338.29 10/09/2014 JIMMIE SMITH, ALBINA F Ot 403.90 10/09/2014 JIMMIE SMITH, ALBINA F Ot 536.3 10/09/2014 JIMMIE SMITH, ALBINA F Ot 558.9 10/09/2014 JIMMIE SMITH, ALBINA F Ot 564.1 10/09/2014 JIMMIE SMITH, ALBINA F Ot 585.9 10/09/2014 JIMMIE SMITH, ALBINA F Ot 593.9 10/09/2014 JIMMIE SMITH, ALBINA F Ot 696.1 10/09/2014 JIMMIE SMITH, ALBINA F Ot V12.51 10/09/2014 JIMMIE SMITH, ALBINA F Ot V58.67 10/09/2014 JIMMIE SMITH, ALBINA F Ot 250.62 10/09/2014 JIMMIE SMITH, ALBINA F Ot 272.4 10/09/2014 JIMMIE SMITH, ALBINA F Ot 305.1 10/09/2014 JIMMIE SMITH, ALBINA F Ot 338.29 10/09/2014 JIMMIE SMITH, ALBINA F Ot 403.90 10/09/2014 JIMMIE SMITH, ALBINA F Ot 536.3 10/09/2014 JIMMIE SMITH, ALBINA F Ot 558.9 10/09/2014 JIMMIE SMITH, ALBINA F Ot 564.1 10/09/2014 JIMMIE SMITH, ALBINA F Ot 585.9 10/09/2014 JIMMIE SMITH, ALBINA F Ot 593.9 10/09/2014 ALBINA SAMUEL MD Ot 696.1 10/09/2014 ALBINA SAMUEL MD Ot V12.51 10/09/2014 ALBINA SAMUEL MD Ot V58.67 10/29/2014 TIA OJEDA MD Ot 250.02 DIAB JONATHAN WO COMPL, TYPE II OR UNSPEC TY 10/29/2014 TIA OJEDA MD Ot 276.51 DEHYDRATION 10/29/2014 TIA OJEDA MD Ot 305.1 TOBACCO USE DISORDER 10/29/2014 TIA OJEDA MD Ot 333.94 RESTLESS LEGS SYNDROME 10/29/2014 TIA OJEDA MD Ot 401.9 HYPERTENSION NOS 10/29/2014 TIA OJEDA MD Ot 459.81 VENOUS INSUFFICIENCY NOS 10/29/2014 TIA OJEDA MD Ot 787.02 NAUSEA ALONE 12/03/2014 WINDY GRIFFIN DO Ot 250.02 DIAB JONATHAN WO COMPL, TYPE II OR UNSPEC TY 12/03/2014 WINDY GRIFFIN DO Ot 305.1 TOBACCO USE DISORDER 12/03/2014 WINDY GRIFFIN DO Ot 338.29 OTHER CHRONIC PAIN 12/03/2014 WINDY GRIFFIN DO Ot 787.02 NAUSEA ALONE 12/03/2014 WINDY GRIFFIN DO Ot V15.81 HX OF PAST NONCOMPLIANCE 12/03/2014 WINDY GRIFFIN DO Ot V58.67 LONG-TERM (CURRENT) USE OF INSULIN 12/05/2014 STEFANY PACE APRN 250.03 DIABETES MELLITUS WITHOUT MENTION OF COMPLICATION TYPE I [JUVENILE TYPE] UNCONTROLLED 12/05/2014 STEFANY PACE APRN 250.03 DIABETES MELLITUS WITHOUT MENTION OF COMPLICATION TYPE I [JUVENILE TYPE] UNCONTROLLED 12/05/2014 ALBINA SAMUEL MD 250.03 DIABETES MELLITUS WITHOUT MENTION OF COMPLICATION TYPE I [JUVENILE TYPE] UNCONTROLLED 12/05/2014 EH BACA APRN 250.03 DIABETES MELLITUS WITHOUT MENTION OF COMPLICATION TYPE I [JUVENILE TYPE] UNCONTROLLED 12/19/2014 LORNA HENRY Ot 250.00 DIAB JONATHAN WO COMPL, TYPE II OR UNSPEC TY 12/19/2014 LORNA HENRY Ot 466.0 ACUTE BRONCHITIS 12/19/2014 LORNA HENRY Ot 786.2 COUGH 12/19/2014 MARICARMEN PA, LORNA L Ot V58.67 LONG-TERM (CURRENT) USE OF INSULIN 12/24/2014 TABATHA COVARRUBIAS MD Ot 250.02 DIAB JONATHAN WO COMPL, TYPE II OR UNSPEC TY 12/24/2014 TABATHA COVARRUBIAS MD Ot 272.4 HYPERLIPIDEMIA NEC/NOS 12/24/2014 TABATHA COVARRUBIAS MD Ot 338.29 OTHER CHRONIC PAIN 12/24/2014 TABATHA COVARRUBIAS MD Ot 401.9 HYPERTENSION NOS 12/24/2014 TABATHA COVARRUBIAS MD Ot 490 BRONCHITIS NOS 12/24/2014 TABATHA COVARRUBIAS MD Ot V58.67 LONG-TERM (CURRENT) USE OF INSULIN 01/17/2015 ALBINA SAMUEL MD 384.20 PERFORATION OF TYMPANIC MEMBRANE UNSPECIFIED 01/17/2015 ALBINA SAMUEL MD 388.70 OTALGIA UNSPECIFIED 01/17/2015 EH BACA APRN 384.20 PERFORATION OF TYMPANIC MEMBRANE UNSPECIFIED 01/17/2015 EH BACA APRN 388.70 OTALGIA UNSPECIFIED 02/22/2015 LORNA HENRY Ot 599.0 URIN TRACT INFECTION NOS 02/22/2015 OLRNA HENRY Ot 599.70 HEMATURIA, UNSPECIFIED 03/12/2015 EH BACA APRN 599.0 URINARY TRACT INFECTION 03/18/2015 Ot 250.02 07/14/2015 GIULIANA BARILLAS MD Ot 250.00 DIAB JONATHAN WO COMPL, TYPE II OR UNSPEC TY 07/14/2015 GIULIANA BARILLAS MD Ot 272.4 HYPERLIPIDEMIA NEC/NOS 07/14/2015 GIULIANA BARILLAS MD Ot 278.00 OBESITY, NOS 07/14/2015 GIULIANA BARILLAS MD Ot 305.1 TOBACCO USE DISORDER 07/14/2015 GIULIANA BARILLAS MD Ot 401.9 HYPERTENSION NOS 07/14/2015 GIULIANA BARILLAS MD Ot 411.1 INTERMED CORONARY SYND 07/14/2015 GIULIANA BARILLAS MD Ot 414.01 CORONARY ATHEROSCLEROSIS OF [place] CORON 07/14/2015 GIULIANA BARILLAS MD Ot 789.01 ABDOMINAL PAIN, RIGHT UPPER QUADRANT 07/14/2015 GIULIANA BARILLAS MD Ot V17.3 FAM HX-[place]HE[place] HEART DIS 07/14/2015 GIULIANA BARILLAS MD Ot V58.69 OTH MED,LT,CURRENT USE 07/14/2015 GIULIANA BARILLAS MD Ot V85.34 BODY MASS INDEX 34.0-34.9, ADULT 07/16/2015 GIULIANA BARILLAS MD Ot 250.00 DIAB JONATHAN WO COMPL, TYPE II OR UNSPEC TY 07/16/2015 GIULIANA BARILLAS MD Ot 272.0 PURE HYPERCHOLESTEROLEM 07/16/2015 GIULIANA BARILLAS MD Ot 272.4 HYPERLIPIDEMIA NEC/NOS 07/16/2015 GIULIANA BARILLAS MD Ot 278.00 OBESITY, NOS 07/16/2015 GIULIANA BARILLAS MD Ot 305.1 TOBACCO USE DISORDER 07/16/2015 GIULIANA BARILLAS MD Ot 338.29 OTHER CHRONIC PAIN 07/16/2015 GIULIANA BARILLAS MD Ot 389.9 HEARING LOSS NOS 07/16/2015 GIULIANA BARILLAS MD Ot 401.9 HYPERTENSION NOS 07/16/2015 GIULIANA BARILLAS MD Ot 414.01 CORONARY ATHEROSCLEROSIS OF [place] CORON 07/16/2015 GIULIANA BARILLAS MD Ot 511.0 PLEURISY W/O EFFUS OR TB 07/16/2015 GIULIANA BARILLAS MD Ot 716.90 ARTHROPATHY NOS-UNSPEC 07/16/2015 GIULIANA BARILLAS MD Ot 724.5 BACKACHE NOS 07/16/2015 GIULIANA BARILLAS MD Ot 729.1 MYALGIA AND MYOSITIS NOS 07/16/2015 GIULIANA BARILLAS MD Ot 787.01 NAUSEA WITH VOMITING 07/16/2015 GIULIANA BARILLAS MD Ot V17.3 FAM HX-[place]HE[place] HEART DIS 07/16/2015 GIULIANA BARILLAS MD Ot V45.82 PERCUTANEOUS TRANSLUM CORON ANGIOPLASTY 07/16/2015 GIULIANA BARILLAS MD Ot V58.67 LONG-TERM (CURRENT) USE OF INSULIN 07/16/2015 GIULIANA BARILLAS MD Ot V58.69 OTH MED,LT,CURRENT USE 07/16/2015 GIULIANA BARILLAS MD Ot V85.32 BODY MASS INDEX 32.0-32.9, ADULT 08/28/2015 Ot 250.02 08/30/2015 JR MARIE APRN Ot E11.9 TYPE 2 DIABETES MELLITUS WITHOUT COMPLIC 08/30/2015 JR MARIE MECHANIC GENERAL OPERATIONAL TEST Ot I10 ESSENTIAL (PRIMARY) HYPERTENSION 08/30/2015 JR MARIE APRN Ot N39.0 URINARY TRACT INFECTION, SITE NOT SPECIF 08/30/2015 JR MARIE APRN Ot R10.31 RIGHT LOWER QUADRANT PAIN 08/30/2015 JR MARIE APRN Ot Z79.4 RETIREMENT (CURRENT) USE OF INSULIN 08/30/2015 JR MARIE APRN Ot Z79.899 OTHER TECHNICAL SUPPORT TECHNICIAN (CURRENT) DRUG THERAPY 09/07/2015 Ot E11.9 TYPE 2 DIABETES MELLITUS WITHOUT COMPLIC 09/07/2015 Ot M54.9 DORSALGIA, UNSPECIFIED 09/07/2015 Ot R07.9 CHEST PAIN, UNSPECIFIED 09/07/2015 Ot R11.2 NAUSEA WITH VOMITING, UNSPECIFIED 09/07/2015 Ot Z79.4 RETIREMENT (CURRENT) USE OF INSULIN 10/21/2015 Ot 250.02 10/21/2015 ISIDRO SMITH FACC, RICH [place] CCDS Ot Z95.5 10/21/2015 JR MARIE APRN Ot E11.9 TYPE 2 DIABETES MELLITUS WITHOUT COMPLIC 10/21/2015 JR MARIE APRN Ot G89.29 OTHER CHRONIC PAIN 10/21/2015 JR MARIE APRN Ot J20.9 ACUTE BRONCHITIS, UNSPECIFIED 10/21/2015 JR MARIE APRN Ot M54.9 DORSALGIA, UNSPECIFIED 10/21/2015 JR MARIE APRN Ot N28.9 DISORDER OF KIDNEY AND URETER, UNSPECIFI 10/21/2015 JR MARIE APRN Ot Z79.4 RETIREMENT (CURRENT) USE OF INSULIN 10/21/2015 JR MARIE MECHANIC GENERAL OPERATIONAL TEST Ot Z79.82 TECHNICAL SUPPORT TECHNICIAN (CURRENT) USE OF ASPIRIN 10/21/2015 JR MARIE APRN Ot Z79.899 OTHER RETIREMENT (CURRENT) DRUG THERAPY 10/23/2015 PURA PIÑA DO Ot E11.9 TYPE 2 DIABETES MELLITUS WITHOUT COMPLIC 10/23/2015 CHRIS PIÑA DOA Tracee Ot F17.210 NICOTINE DEPENDENCE, CIGARETTES, UNCOMPL 10/23/2015 PURA PIÑA DO Ot Z53.29 PROC/TRTMT NOT CRD OUT BEC PT DECISION F 10/23/2015 PURA PIÑA DO Ot Z79.4 RETIREMENT (CURRENT) USE OF INSULIN 11/06/2015 ISIDRO SMITH FACC, RICH VARELAP CCDS Ot Z95.5 11/20/2015 Ot 250.02 11/20/2015 ISIDRO SMITH FACC, ALI FACP CCDS Ot Z95.5 11/20/2015 ISIDRO SMITH FACJeremiah, ALI FACP CCDS Ot Z95.5 11/20/2015 [facility] RICH FACP CCDS Ot Z95.5 11/26/2015 [facility]ITH [facility] CCDS Ot Z48.812 ENCNTR FOR SURGICAL AFTCR FOLLOWING SURG 11/26/2015 ISIDRO SMITH FACC, RICH [place] CCDS Ot Z95.5 PRESENCE OF CORONARY ANGIOPLASTY IMPLANT 11/28/2015 WINDY GRIFFIN DO Ot E11.65 TYPE 2 DIABETES MELLITUS WITH HYPERGLYCE 11/28/2015 WINDY GRIFFIN DO Ot E78.5 HYPERLIPIDEMIA, UNSPECIFIED 11/28/2015 WINDY GRIFFIN DO Ot E87.1 HYPO-OSMOLALITY AND HYPONATREMIA 11/28/2015 WINDY GRIFFIN DO Ot F17.210 NICOTINE DEPENDENCE, CIGARETTES, UNCOMPL 11/28/2015 WINDY GRIFFIN DO Ot G89.29 OTHER CHRONIC PAIN 11/28/2015 WINDY GRIFFIN DO Ot I12.9 HYPERTENSIVE CHRONIC KIDNEY DISEASE W ST 11/28/2015 WINDY GRIFFIN DO Ot I25.10 ATHSCL HEART DISEASE OF [place] CORONARY 11/28/2015 WINDY GRIFFIN DO Ot K21.9 GASTRO-ESOPHAGEAL REFLUX DISEASE WITHOUT 11/28/2015 WINDY GRIFFIN DO Ot N18.9 CHRONIC KIDNEY DISEASE, UNSPECIFIED 11/28/2015 WINDY GRIFFIN DO Ot N28.9 DISORDER OF KIDNEY AND URETER, UNSPECIFI 11/28/2015 WINDY GRIFFIN DO Ot Z79.4 RETIREMENT (CURRENT) USE OF INSULIN 11/28/2015 WINDY GRIFFIN DO Ot Z91.19 PATIENT'S NONCOMPLIANCE W [facility] 12/02/2015 TIA OJEDA MD Ot E11.65 TYPE 2 DIABETES MELLITUS WITH HYPERGLYCE 12/02/2015 TIA OJEDA MD Ot E78.5 HYPERLIPIDEMIA, UNSPECIFIED 12/02/2015 TIA OJEDA MD Ot F17.210 NICOTINE DEPENDENCE, CIGARETTES, UNCOMPL 12/02/2015 TIA OJEDA MD Ot G89.29 OTHER CHRONIC PAIN 12/02/2015 TIA OJEDA MD Ot I10 ESSENTIAL (PRIMARY) HYPERTENSION 12/02/2015 TIA OJEDA MD Ot I25.10 ATHSCL HEART DISEASE OF [place] CORONARY 12/02/2015 TIA OJEDA MD Ot K21.9 GASTRO-ESOPHAGEAL REFLUX DISEASE WITHOUT 12/02/2015 TIA OJEDA MD Ot N17.9 ACUTE KIDNEY FAILURE, UNSPECIFIED 12/02/2015 TIA OJEDA MD, Ot Z79.4 TECHNICAL SUPPORT TECHNICIAN (CURRENT) USE OF INSULIN 12/02/2015 TIA OJEDA MD, Ot Z91.19 PATIENT'S NONCOMPLIANCE W [facility] 12/10/2015 SHIRA BOOTHE VENDOR ANALYST Ot E78.5 12/10/2015 SHIRA BOOTHE VENDOR ANALYST Ot I10 12/10/2015 SHIRA BOOTHE VENDOR ANALYST Ot I25.10 12/10/2015 SHIRA BOOTHE VENDOR ANALYST Ot R11.10 12/10/2015 SHIRA BOOTHE VENDOR ANALYST Ot Z72.0 12/23/2015 JUNAID CAO DO Ot E11.65 TYPE 2 DIABETES MELLITUS WITH HYPERGLYCE 12/23/2015 JUNAID CAO DO Ot Z79.4 RETIREMENT (CURRENT) USE OF INSULIN 12/31/2015 VALENTIN YANES MD Ot E11.65 TYPE 2 DIABETES MELLITUS WITH HYPERGLYCE 12/31/2015 VALENTIN YANES MD, Ot F17.210 NICOTINE DEPENDENCE, CIGARETTES, UNCOMPL 12/31/2015 VALENTIN YANES MD Ot R07.89 OTHER CHEST PAIN 12/31/2015 VALENTIN YANES MD Ot R10.13 EPIGASTRIC PAIN 12/31/2015 VALENTIN YANES MD Ot R11.2 NAUSEA WITH VOMITING, UNSPECIFIED 12/31/2015 VALENTIN YANES MD Ot Z79.02 TECHNICAL SUPPORT TECHNICIAN (CURRENT) USE OF ANTITHROMBOTI 12/31/2015 VALENTIN YANES MD Ot Z79.4 TECHNICAL SUPPORT TECHNICIAN (CURRENT) USE OF INSULIN 01/14/2016 Ot 250.02 01/14/2016 ISIDRO SMITH FACC, RICH FACP CCDS Ot Z95.5 01/14/2016 BAIMA, SHIRA L VENDOR ANALYST Ot E78.5 01/14/2016 BAIMA, SHIRA L VENDOR ANALYST Ot I10 01/14/2016 BAIMA, SHIRA L VENDOR ANALYST Ot I25.10 01/14/2016 BAIMA, SHIRA L VENDOR ANALYST Ot R11.10 01/14/2016 BAIMA, SHIRA L VENDOR ANALYST Ot Z72.0 01/14/2016 CAO DO, JUNAID L Ot E11.65 01/14/2016 CAO DO, JUNAID L Ot Z79.4 02/26/2016 BAIMA, SHIRA L VENDOR ANALYST Ot E78.5 02/26/2016 BAIMA, SHIRA L VENDOR ANALYST Ot I10 02/26/2016 BAIMA, SHIRA L VENDOR ANALYST Ot I25.10 02/26/2016 BAIMA, SHIRA L VENDOR ANALYST Ot Z72.0 02/28/2016 BAIMA, SHIRA L VENDOR ANALYST Ot E78.5 02/28/2016 BAIMA, SHIRA L VENDOR ANALYST Ot I10 02/28/2016 BAIMA, SHIRA L VENDOR ANALYST Ot I25.10 02/28/2016 BAIMA, SHIRA L VENDOR ANALYST Ot Z72.0 03/10/2016 ISIDRO SMITH FACC, RICH FACP CCDS Ot E11.9 TYPE 2 DIABETES MELLITUS WITHOUT COMPLIC 03/10/2016 ISIDRO SMITH FACC, RICH FACP CCDS Ot E66.9 OBESITY, UNSPECIFIED 03/10/2016 ISIDRO SMITH FACC, RICH FACP CCDS Ot E78.5 HYPERLIPIDEMIA, UNSPECIFIED 03/10/2016 ISIDRO SMITH FACC, RICH FACP CCDS Ot F17.210 NICOTINE DEPENDENCE, CIGARETTES , UNCOMPL 03/10/2016 ISIDRO SMITH FACC, ALI FACP CCDS Ot G89.4 CHRONIC PAIN SYNDROME 03/10/2016 ISIDRO SMITH FACC, RICH FACP CCDS Ot I10 ESSENTIAL (PRIMARY) HYPERTENSION 03/10/2016 ISIDRO SMITH FACC, RICH FACP CCDS Ot I25.10 ATHSCL HEART DISEASE OF [place] CORONARY 03/10/2016 ISIDRO SMITH FACC, RICH FACP CCDS Ot M79.1 MYALGIA 03/10/2016 ISIDRO SMITH FACC, RICH FACP CCDS Ot R07.89 OTHER CHEST PAIN 03/10/2016 ISIDRO SMITH FACC, ALI FACP CCDS Ot Z68.33 BODY MASS INDEX (BMI) 33.0-33.9 , ADULT 03/10/2016 ISIDRO SMITH FACC, ALI FACP CCDS Ot Z79.4 RETIREMENT (CURRENT) USE OF INSULIN 03/10/2016 ISIDRO SMITH FACC, ALI FACP CCDS Ot Z79.899 OTHER TECHNICAL SUPPORT TECHNICIAN (CURRENT) DRUG THERAPY 03/10/2016 ISIDRO SMITH FACC, ALI FACP CCDS Ot Z95.5 PRESENCE OF CORONARY ANGIOPLASTY IMPLANT 03/23/2016 ISIDRO SMITH FACC, ALI FACP CCDS Ot E11.9 TYPE 2 DIABETES MELLITUS WITHOUT COMPLIC 03/23/2016 ISIDRO SMITH FACC, ALI FACP CCDS Ot E66.9 OBESITY, UNSPECIFIED 03/23/2016 ISIDRO SMITH FACC, ALI FACP CCDS Ot E78.5 HYPERLIPIDEMIA, UNSPECIFIED 03/23/2016 ISIDRO SMITH FACC, ALI FACP CCDS Ot F17.210 NICOTINE DEPENDENCE, CIGARETTES , UNCOMPL 03/23/2016 ISIDRO SMITH FACC, ALI FACP CCDS Ot G89.4 CHRONIC PAIN SYNDROME 03/23/2016 ISIDRO SMITH FACC, ALI FACP CCDS Ot I10 ESSENTIAL (PRIMARY) HYPERTENSION 03/23/2016 ISIDRO SMITH FACC, ALI FACP CCDS Ot I25.10 ATHSCL HEART DISEASE OF [place] CORONARY 03/23/2016 ISIDRO SMITH FACC, ALI FACP CCDS Ot M79.1 MYALGIA 03/23/2016 ISIDRO SMITH FACC, RICH FACP CCDS Ot R07.89 OTHER CHEST PAIN 03/23/2016 ISIDRO SMITH FACC, ALI FACP CCDS Ot Z68.33 BODY MASS INDEX (BMI) 33.0-33.9 , ADULT 03/23/2016 ISIDRO SMITH FACC, ALI FACP CCDS Ot Z79.4 TECHNICAL SUPPORT TECHNICIAN (CURRENT) USE OF INSULIN 03/23/2016 ISIDRO SMITH FACC, ALI FACP CCDS Ot Z79.899 OTHER RETIREMENT (CURRENT) DRUG THERAPY 03/23/2016 ISIDRO SMITH FACC, ALI FACP CCDS Ot Z95.5 PRESENCE OF CORONARY ANGIOPLASTY IMPLANT 06/28/2016 PURA PIÑA DO Ot M79.602 PAIN IN LEFT ARM 06/29/2016 PURA PIÑA DO Ot M79.602 PAIN IN LEFT ARM 07/22/2016 Ot 250.02 DIAB JONATHAN WO COMPL, TYPE II OR UNSPEC TY 09/15/2016 LORNA HENRY Ot 599.0 URIN TRACT INFECTION NOS 09/15/2016 LORNA HENRY Ot 599.70 HEMATURIA, UNSPECIFIED 10/12/2016 Ot 250.02 DIAB JONATHAN WO COMPL, TYPE II OR UNSPEC TY 10/12/2016 ISIDRO SMITH FACC, ALI FACP CCDS Ot Z95.5 PRESENCE OF CORONARY ANGIOPLASTY IMPLANT 10/12/2016 BAIMA, SHIRA L VENDOR ANALYST Ot E78.5 HYPERLIPIDEMIA, UNSPECIFIED 10/12/2016 BAIMA, SHIRA L VENDOR ANALYST Ot I10 ESSENTIAL (PRIMARY) HYPERTENSION 10/12/2016 BAIMA, SHIRA L VENDOR ANALYST Ot I25.10 ATHSCL HEART DISEASE OF [place] CORONARY 10/12/2016 BAIMA, SHIRA L VENDOR ANALYST Ot R11.10 VOMITING, UNSPECIFIED 10/12/2016 BAIMA, SHIRA L VENDOR ANALYST Ot Z72.0 TOBACCO USE 10/12/2016 BAIMA, SHIRA L VENDOR ANALYST Ot E78.5 HYPERLIPIDEMIA, UNSPECIFIED 10/12/2016 BAIMA, SHIRA L VENDOR ANALYST Ot I10 ESSENTIAL (PRIMARY) HYPERTENSION 10/12/2016 BAIMA, SHIRA L VENDOR ANALYST Ot I25.10 ATHSCL HEART DISEASE OF [place] CORONARY 10/12/2016 BAIMA, SHIRA L VENDOR ANALYST Ot Z72.0 TOBACCO USE 10/12/2016 BAIMA, SHIRA L VENDOR ANALYST Ot E78.5 HYPERLIPIDEMIA, UNSPECIFIED 10/12/2016 BAIMA, SHIRA L VENDOR ANALYST Ot I10 ESSENTIAL (PRIMARY) HYPERTENSION 10/12/2016 BAIMA, SHIRA L VENDOR ANALYST Ot I25.10 ATHSCL HEART DISEASE OF [place] CORONARY 10/12/2016 BAIMA, SHIRA L VENDOR ANALYST Ot Z72.0 TOBACCO USE 10/12/2016 LATANYA HOLLINGSWORTH MD Ot E11.9 TYPE 2 DIABETES MELLITUS WITHOUT COMPLIC 10/12/2016 LATANYA HOLLINGSWORTH MD Ot I10 ESSENTIAL (PRIMARY) HYPERTENSION 10/12/2016 LATANYA HOLLINGSWORTH MD Ot M79.671 PAIN IN RIGHT FOOT 10/12/2016 LATANYA HOLLINGSWORTH MD Ot S99.921A UNSPECIFIED INJURY OF RIGHT FOOT, INITIA 10/12/2016 LATANYA HOLLINGSWORTH MD Ot Z79.4 TECHNICAL SUPPORT TECHNICIAN (CURRENT) USE OF INSULIN 10/12/2016 LATANYA HOLLINGSWORTH MD Ot Z79.82 TECHNICAL SUPPORT TECHNICIAN (CURRENT) USE OF ASPIRIN 10/12/2016 LATANYA HOLLINGSWORTH MD Ot Z79.84 RETIREMENT (CURRENT) USE OF ORAL HYPOGLYC 10/12/2016 LATANYA HOLLINGSWORTH MD Ot Z79.899 OTHER RETIREMENT (CURRENT) DRUG THERAPY 10/12/2016 LATANYA HOLLINGSWORTH MD Ot Z95.5 PRESENCE OF CORONARY ANGIOPLASTY IMPLANT 10/13/2016 LATANYA HOLLINGSWORTH MD Ot E11.9 TYPE 2 DIABETES MELLITUS WITHOUT COMPLIC 10/13/2016 LATANYA HOLLINGSWORTH MD Ot I10 ESSENTIAL (PRIMARY) HYPERTENSION 10/13/2016 LATANYA HOLLINGSWORTH MD Ot M79.671 PAIN IN RIGHT FOOT 10/13/2016 LATANYA HOLLINGSWORTH MD Ot S99.921A UNSPECIFIED INJURY OF RIGHT FOOT, INITIA 10/13/2016 LATANYA HOLLINGSWORTH MD Ot Z79.4 TECHNICAL SUPPORT TECHNICIAN (CURRENT) USE OF INSULIN 10/13/2016 LATANYA HOLLINGSWORTH MD Ot Z79.82 RETIREMENT (CURRENT) USE OF ASPIRIN 10/13/2016 LATANYA HOLLINGSWORTH MD Ot Z79.84 TECHNICAL SUPPORT TECHNICIAN (CURRENT) USE OF ORAL HYPOGLYC 10/13/2016 LATANYA HOLLINGSWORTH MD Ot Z79.899 OTHER RETIREMENT (CURRENT) DRUG THERAPY 10/13/2016 LATANYA HOLLINGSWORTH MD Ot Z95.5 PRESENCE OF CORONARY ANGIOPLASTY IMPLANT 10/15/2016 Ot 250.02 DIAB JONATHAN WO COMPL, TYPE II OR UNSPEC TY 10/15/2016 ISIDRO SMITH FACC, RICH [place] CCDS Ot Z95.5 PRESENCE OF CORONARY ANGIOPLASTY IMPLANT 10/15/2016 SHIRA BOOTHEP Ot E78.5 HYPERLIPIDEMIA, UNSPECIFIED 10/15/2016 SHIRA BOOTHE VENDOR ANALYST Ot I10 ESSENTIAL (PRIMARY) HYPERTENSION 10/15/2016 SHIRA BOOTHEP Ot I25.10 ATHSCL HEART DISEASE OF [place] CORONARY 10/15/2016 SHIRA BOOTHE VENDOR ANALYST Ot R11.10 VOMITING, UNSPECIFIED 10/15/2016 SIHRA BOOTHE VENDOR ANALYST Ot Z72.0 TOBACCO USE 10/15/2016 SHIRA BOOTHE VENDOR ANALYST Ot E78.5 HYPERLIPIDEMIA, UNSPECIFIED 10/15/2016 BAIMASHIRA L VENDOR ANALYST Ot I10 ESSENTIAL (PRIMARY) HYPERTENSION 10/15/2016 BAISHIRA SILVA VENDOR ANALYST Ot I25.10 ATHSCL HEART DISEASE OF [place] CORONARY 10/15/2016 BAISHIRA SILVA VENDOR ANALYST Ot Z72.0 TOBACCO USE 10/15/2016 BAISHIRA SILVA VENDOR ANALYST Ot E78.5 HYPERLIPIDEMIA, UNSPECIFIED 10/15/2016 BAIMASHIRA VENDOR ANALYST Ot I10 ESSENTIAL (PRIMARY) HYPERTENSION 10/15/2016 BAISHIRA SILVA VENDOR ANALYST Ot I25.10 ATHSCL HEART DISEASE OF [place] CORONARY 10/15/2016 BAISHIRA SILVA VENDOR ANALYST Ot Z72.0 TOBACCO USE 10/16/2016 CHRIS PIÑA DOA K Ot E11.40 TYPE 2 DIABETES MELLITUS WITH DIABETIC N 10/16/2016 CHRIS PIÑA DOA K Ot F17.210 NICOTINE DEPENDENCE, CIGARETTES, UNCOMPL 10/16/2016 AYANA BOSE PURA K Ot G89.29 OTHER CHRONIC PAIN 10/16/2016 AYANA BOSE PURA K Ot I10 ESSENTIAL (PRIMARY) HYPERTENSION 10/16/2016 CHRIS PIÑA DOA K Ot I73.9 PERIPHERAL VASCULAR DISEASE, UNSPECIFIED 10/16/2016 CHRIS PIÑA DOA K Ot M79.661 PAIN IN RIGHT LOWER LEG 10/16/2016 PURA PIÑA DO K Ot Z79.4 RETIREMENT (CURRENT) USE OF INSULIN 10/16/2016 PURA PIÑA DO K Ot Z79.84 TECHNICAL SUPPORT TECHNICIAN (CURRENT) USE OF ORAL HYPOGLYC 10/16/2016 CHRIS PIÑA DOA K Ot Z79.899 OTHER TECHNICAL SUPPORT TECHNICIAN (CURRENT) DRUG THERAPY 10/16/2016 CHRIS PIÑA DOA K Ot Z95.5 PRESENCE OF CORONARY ANGIOPLASTY IMPLANT 10/19/2016 PURA PIÑA DO K Ot E11.40 TYPE 2 DIABETES MELLITUS WITH DIABETIC N 10/19/2016 CHRIS PIÑA DOA K Ot F17.210 NICOTINE DEPENDENCE, CIGARETTES, UNCOMPL 10/19/2016 CHRIS PIÑA DOA K Ot G89.29 OTHER CHRONIC PAIN 10/19/2016 PURA PIÑA DO Ot I10 ESSENTIAL (PRIMARY) HYPERTENSION 10/19/2016 PURA PIÑA DO Ot I73.9 PERIPHERAL VASCULAR DISEASE, UNSPECIFIED 10/19/2016 PURA PIÑA DO Ot M79.661 PAIN IN RIGHT LOWER LEG 10/19/2016 PURA PIÑA DO Ot Z79.4 TECHNICAL SUPPORT TECHNICIAN (CURRENT) USE OF INSULIN 10/19/2016 PURA PIÑA DO Ot Z79.84 RETIREMENT (CURRENT) USE OF ORAL HYPOGLYC 10/19/2016 PURA PIÑA DO Ot Z79.899 OTHER TECHNICAL SUPPORT TECHNICIAN (CURRENT) DRUG THERAPY 10/19/2016 PURA PIÑA DO Ot Z95.5 PRESENCE OF CORONARY ANGIOPLASTY IMPLANT 10/21/2016 KIM FUNEZ DO Ot G47.31 PRIMARY CENTRAL SLEEP APNEA 10/22/2016 KIM FUNEZ DO Ot G47.33 OBSTRUCTIVE SLEEP APNEA (ADULT) (PEDIATR 10/22/2016 KIM FUNEZ DO Ot G47.33 OBSTRUCTIVE SLEEP APNEA (ADULT) (PEDIATR 10/26/2016 Ot 250.02 DIAB JONATHAN WO COMPL, TYPE II OR UNSPEC TY 10/26/2016 ISIDRO SMITH FACC, RICH [place] CCDS Ot Z95.5 PRESENCE OF CORONARY ANGIOPLASTY IMPLANT 10/26/2016 SHIRA BOOTHE L VENDOR ANALYST Ot E78.5 HYPERLIPIDEMIA, UNSPECIFIED 10/26/2016 BAIMA, SHIRA L VENDOR ANALYST Ot I10 ESSENTIAL (PRIMARY) HYPERTENSION 10/26/2016 BAIMA SHIRA L VENDOR ANALYST Ot I25.10 ATHSCL HEART DISEASE OF [place] CORONARY 10/26/2016 BAIMA SHIRA L VENDOR ANALYST Ot R11.10 VOMITING, UNSPECIFIED 10/26/2016 BAIMA, SHIRA L VENDOR ANALYST Ot Z72.0 TOBACCO USE 10/26/2016 BAIMA, SHIRA L VENDOR ANALYST Ot E78.5 HYPERLIPIDEMIA, UNSPECIFIED 10/26/2016 BAIMA, SHIRA L VENDOR ANALYST Ot I10 ESSENTIAL (PRIMARY) HYPERTENSION 10/26/2016 BAIMA SHIRA L VENDOR ANALYST Ot I25.10 ATHSCL HEART DISEASE OF [place] CORONARY 10/26/2016 BAIMA SHIRA L VENDOR ANALYST Ot Z72.0 TOBACCO USE 10/26/2016 BAIMA SHIRA L VENDOR ANALYST Ot E78.5 HYPERLIPIDEMIA, UNSPECIFIED 10/26/2016 SHIRA BOOTHE VENDOR ANALYST Ot I10 ESSENTIAL (PRIMARY) HYPERTENSION 10/26/2016 SHIRA BOOTHE VENDOR ANALYST Ot I25.10 ATHSCL HEART DISEASE OF [place] CORONARY 10/26/2016 SHIRA BOOTHE VENDOR ANALYST Ot Z72.0 TOBACCO USE 10/27/2016 DEE DEE DO KIM Arlen Ot G47.33 OBSTRUCTIVE SLEEP APNEA (ADULT) (PEDIATR 10/27/2016 DEE DEE KIM M Ot I25.10 ATHSCL HEART DISEASE OF [place] CORONARY 10/27/2016 DEE DEE ELOYKIM M Ot R05 COUGH 10/27/2016 DEE DEE DO, KIM Arlen Ot Z72.0 TOBACCO USE 11/14/2016 VALERIAKIANARONEN E MECHANIC GENERAL OPERATIONAL TEST Ot E66.01 MORBID (SEVERE) OBESITY DUE TO EXCESS CA 11/14/2016 VALERIA, RONEN E MECHANIC GENERAL OPERATIONAL TEST Ot F17.210 NICOTINE DEPENDENCE, CIGARETTES, UNCOMPL 11/14/2016 VALERIA, RONEN E MECHANIC GENERAL OPERATIONAL TEST Ot G47.10 HYPERSOMNIA, UNSPECIFIED 11/14/2016 VALERIA, RONEN E MECHANIC GENERAL OPERATIONAL TEST Ot G47.33 OBSTRUCTIVE SLEEP APNEA (ADULT) ( PEDIATR 11/14/2016 VALERIA, RONEN E MECHANIC GENERAL OPERATIONAL TEST Ot G47.9 SLEEP DISORDER, UNSPECIFIED 11/14/2016 VALERIA, RONEN E MECHANIC GENERAL OPERATIONAL TEST Ot J30.9 ALLERGIC RHINITIS, UNSPECIFIED 11/14/2016 VALERIA, RONEN E MECHANIC GENERAL OPERATIONAL TEST Ot K21.9 GASTRO-ESOPHAGEAL REFLUX DISEASE WITHOUT 11/14/2016 VALERIA, RONEN E MECHANIC GENERAL OPERATIONAL TEST Ot R05 COUGH 11/16/2016 VALERIA, RONEN E MECHANIC GENERAL OPERATIONAL TEST Ot E66.01 MORBID (SEVERE) OBESITY DUE TO EXCESS CA 11/16/2016 VALERIA, RONEN E MECHANIC GENERAL OPERATIONAL TEST Ot F17.210 NICOTINE DEPENDENCE, CIGARETTES, UNCOMPL 11/16/2016 VALERIA, RONEN E MECHANIC GENERAL OPERATIONAL TEST Ot G47.10 HYPERSOMNIA, UNSPECIFIED 11/16/2016 VALERIA, RONEN E MECHANIC GENERAL OPERATIONAL TEST Ot G47.33 OBSTRUCTIVE SLEEP APNEA (ADULT) ( PEDIATR 11/16/2016 VALERIA, RONEN E MECHANIC GENERAL OPERATIONAL TEST Ot G47.9 SLEEP DISORDER, UNSPECIFIED 11/16/2016 VALERIA, RONEN E MECHANIC GENERAL OPERATIONAL TEST Ot J30.9 ALLERGIC RHINITIS, UNSPECIFIED 11/16/2016 VALERIA, RONEN E MECHANIC GENERAL OPERATIONAL TEST Ot K21.9 GASTRO-ESOPHAGEAL REFLUX DISEASE WITHOUT 11/16/2016 RONEN SHAW APRN Ot R05 COUGH 11/19/2016 KIM FUNEZ DO Ot G47.33 OBSTRUCTIVE SLEEP APNEA (ADULT) (PEDIATR 11/19/2016 KIM FUNEZ DO Ot I25.10 ATHSCL HEART DISEASE OF [place] CORONARY 11/19/2016 KIM FUNEZ DO Ot R05 COUGH 11/19/2016 KIM FUNEZ DO Ot Z72.0 TOBACCO USE 11/26/2016 JR MARIE APRN Ot E11.40 TYPE 2 DIABETES MELLITUS WITH DIABETIC N 11/26/2016 JR MARIE APRN Ot E11.65 TYPE 2 DIABETES MELLITUS WITH HYPERGLYCE 11/26/2016 JR MARIE APRN Ot G89.29 OTHER CHRONIC PAIN 11/26/2016 JR MARIE APRN Ot I10 ESSENTIAL (PRIMARY) HYPERTENSION 11/26/2016 JR MARIE APRN Ot I25.10 ATHSCL HEART DISEASE OF [place] CORONARY 11/26/2016 JR MARIE APRN Ot Z79.82 TECHNICAL SUPPORT TECHNICIAN (CURRENT) USE OF ASPIRIN 11/26/2016 JR MARIE APRN Ot Z79.84 TECHNICAL SUPPORT TECHNICIAN (CURRENT) USE OF ORAL HYPOGLYC 11/26/2016 JR MARIE APRN Ot Z79.899 OTHER TECHNICAL SUPPORT TECHNICIAN (CURRENT) DRUG THERAPY 11/26/2016 JR MARIE APRN Ot Z95.5 PRESENCE OF CORONARY ANGIOPLASTY IMPLANT 11/27/2016 JR MARIE APRN Ot E11.40 TYPE 2 DIABETES MELLITUS WITH DIABETIC N 11/27/2016 JR MARIE APRN Ot E11.65 TYPE 2 DIABETES MELLITUS WITH HYPERGLYCE 11/27/2016 JR MARIE APRN Ot G89.29 OTHER CHRONIC PAIN 11/27/2016 JR MARIE APRN Ot I10 ESSENTIAL (PRIMARY) HYPERTENSION 11/27/2016 JR MARIE APRN Ot I25.10 ATHSCL HEART DISEASE OF [place] CORONARY 11/27/2016 JR MARIE APRN Ot Z79.82 RETIREMENT (CURRENT) USE OF ASPIRIN 11/27/2016 JR MARIE APRN Ot Z79.84 TECHNICAL SUPPORT TECHNICIAN (CURRENT) USE OF ORAL HYPOGLYC 11/27/2016 JR MARIE APRN Ot Z79.899 OTHER RETIREMENT (CURRENT) DRUG THERAPY 11/27/2016 JR MARIE APRN Ot Z95.5 PRESENCE OF CORONARY ANGIOPLASTY IMPLANT 12/02/2016 KIM FUNEZ DO, Ot G47.33 OBSTRUCTIVE SLEEP APNEA (ADULT) (PEDIATR 12/02/2016 KIM FUNEZ DO, Ot I25.10 ATHSCL HEART DISEASE OF [place] CORONARY 12/02/2016 KIM FUNEZ DO, Ot R05 COUGH 12/02/2016 KIM FUNEZ DO, Ot Z72.0 TOBACCO USE 12/02/2016 ANNE MARIE PORTILLO MD Ot E11.00 TYPE 2 DIAB W HYPROSM W/O NONKET HYPRGLY 12/02/2016 ANNE MARIE PORTILLO MD Ot E11.42 TYPE 2 DIABETES MELLITUS WITH DIABETIC P 12/02/2016 ANNE MARIE PORTILLO MD Ot 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 12/02/2016 ANNE MARIE PORTILLO MD Ot E11.65 TYPE 2 DIABETES MELLITUS WITH HYPERGLYCE 12/02/2016 ANNE MARIE PORTILLO MD Ot E66.9 OBESITY, UNSPECIFIED 12/02/2016 ANNE MARIE PORTILLO MD Ot E78.00 PURE HYPERCHOLESTEROLEMIA, UNSPECIFIED 12/02/2016 ANNE MARIE PORTILLO MD Ot E87.1 HYPO-OSMOLALITY AND HYPONATREMIA 12/02/2016 ANNE MARIE PORTILLO MD Ot F17.210 NICOTINE DEPENDENCE, CIGARETTES, UNCOMPL 12/02/2016 ANNE MARIE PORTILLO MD Ot I11.0 HYPERTENSIVE HEART DISEASE WITH HEART FA 12/02/2016 ANNE MARIE PORTILLO MD Ot I25.10 ATHSCL HEART DISEASE OF [place] CORONARY 12/02/2016 ANNE MARIE PORTILLO MD Ot K21.9 GASTRO-ESOPHAGEAL REFLUX DISEASE WITHOUT 12/02/2016 ANNE MARIE PORTILLO MD Ot L40.50 ARTHROPATHIC PSORIASIS, UNSPECIFIED 12/02/2016 ANNE MARIE PORTILLO MD Ot M79.7 FIBROMYALGIA 12/02/2016 ANNE MARIE PORTILLO MD Ot N17.9 ACUTE KIDNEY FAILURE, UNSPECIFIED 12/02/2016 ANNE MARIE PORTILLO MD Ot Z23 ENCOUNTER FOR IMMUNIZATION 12/02/2016 ANNE MARIE PORTILLO MD Ot Z68.33 BODY MASS INDEX (BMI) 33.0-33.9, ADULT 12/02/2016 ANNE MARIE PORTILLO MD Ot Z79.4 TECHNICAL SUPPORT TECHNICIAN (CURRENT) USE OF INSULIN 12/02/2016 ANNE MARIE PORTILLO MD Ot Z86.718 PERSONAL HISTORY OF OTHER VENOUS THROMBO 12/02/2016 ANNE MARIE PORTILLO MD Ot Z95.5 PRESENCE OF CORONARY ANGIOPLASTY IMPLANT 12/06/2016 JR MARIE MECHANIC GENERAL OPERATIONAL TEST Ot E11.9 TYPE 2 DIABETES MELLITUS WITHOUT COMPLIC 12/06/2016 JR MARIE MECHANIC GENERAL OPERATIONAL TEST Ot I10 ESSENTIAL (PRIMARY) HYPERTENSION 12/06/2016 JR MARIE MECHANIC GENERAL OPERATIONAL TEST Ot L23.9 ALLERGIC CONTACT DERMATITIS, UNSPECIFIED 12/06/2016 JR MARIE APRN Ot R51 HEADACHE 12/06/2016 JR MARIE APRN Ot Z79.4 TECHNICAL SUPPORT TECHNICIAN (CURRENT) USE OF INSULIN 12/06/2016 JR MARIE MECHANIC GENERAL OPERATIONAL TEST Ot Z79.82 TECHNICAL SUPPORT TECHNICIAN (CURRENT) USE OF ASPIRIN 12/06/2016 JR MARIE MECHANIC GENERAL OPERATIONAL TEST Ot Z79.84 TECHNICAL SUPPORT TECHNICIAN (CURRENT) USE OF ORAL HYPOGLYC 12/06/2016 JR MARIE APRN Ot Z79.899 OTHER RETIREMENT (CURRENT) DRUG THERAPY 12/06/2016 JR MARIE APRN Ot Z86.718 PERSONAL HISTORY OF OTHER VENOUS THROMBO 12/06/2016 JR MARIE APRN Ot Z95.5 PRESENCE OF CORONARY ANGIOPLASTY IMPLANT 12/08/2016 JR MARIE MECHANIC GENERAL OPERATIONAL TEST Ot E11.9 TYPE 2 DIABETES MELLITUS WITHOUT COMPLIC 12/08/2016 JR MARIE APRN Ot I10 ESSENTIAL (PRIMARY) HYPERTENSION 12/08/2016 JR MARIE APRN Ot L23.9 ALLERGIC CONTACT DERMATITIS, UNSPECIFIED 12/08/2016 JR MARIE MECHANIC GENERAL OPERATIONAL TEST Ot R51 HEADACHE 12/08/2016 JR MARIE APRN Ot Z79.4 TECHNICAL SUPPORT TECHNICIAN (CURRENT) USE OF INSULIN 12/08/2016 JR MARIE APRN Ot Z79.82 RETIREMENT (CURRENT) USE OF ASPIRIN 12/08/2016 JR MARIE MECHANIC GENERAL OPERATIONAL TEST Ot Z79.84 RETIREMENT (CURRENT) USE OF ORAL HYPOGLYC 12/08/2016 JR MARIE MECHANIC GENERAL OPERATIONAL TEST Ot Z79.899 OTHER RETIREMENT (CURRENT) DRUG THERAPY 12/08/2016 JR MARIE MECHANIC GENERAL OPERATIONAL TEST Ot Z86.718 PERSONAL HISTORY OF OTHER VENOUS THROMBO 12/08/2016 MARIEJR LOPEZ MARY JO Ot Z95.5 PRESENCE OF CORONARY ANGIOPLASTY IMPLANT 12/25/2016 NEERU SMITH, QUIN Castillo Ot E11.9 TYPE 2 DIABETES MELLITUS WITHOUT COMPLIC 12/25/2016 NEERU SMITH, QUIN Castillo Ot I10 ESSENTIAL (PRIMARY) HYPERTENSION 12/25/2016 NEERU SMITH, QUIN Castillo Ot I25.10 ATHSCL HEART DISEASE OF [place] CORONARY 12/25/2016 QUIN SIDDIQI MD Ot R51 HEADACHE 12/25/2016 QUIN SIDDIQI MD Ot Z79.4 TECHNICAL SUPPORT TECHNICIAN (CURRENT) USE OF INSULIN 12/25/2016 QUIN SIDDIQI MD Ot Z79.84 RETIREMENT (CURRENT) USE OF ORAL HYPOGLYC 12/25/2016 QUIN SIDDIQI MD Ot Z79.899 OTHER RETIREMENT (CURRENT) DRUG THERAPY 12/25/2016 QUIN SIDDIQI MD Ot Z95.5 PRESENCE OF CORONARY ANGIOPLASTY IMPLANT 12/27/2016 QUIN SIDDIQI MD Ot E11.9 TYPE 2 DIABETES MELLITUS WITHOUT COMPLIC 12/27/2016 QUIN SIDDIQI MD Ot I10 ESSENTIAL (PRIMARY) HYPERTENSION 12/27/2016 QUIN SIDDIQI MD Ot I25.10 ATHSCL HEART DISEASE OF [place] CORONARY 12/27/2016 QUIN SIDDIQI MD Ot R51 HEADACHE 12/27/2016 QUIN SIDDIQI MD Ot Z79.4 RETIREMENT (CURRENT) USE OF INSULIN 12/27/2016 QUIN SIDDIQI MD Ot Z79.84 TECHNICAL SUPPORT TECHNICIAN (CURRENT) USE OF ORAL HYPOGLYC 12/27/2016 QUIN SIDDIQI MD Ot Z79.899 OTHER TECHNICAL SUPPORT TECHNICIAN (CURRENT) DRUG THERAPY 12/27/2016 QUIN SIDDIQI MD Ot Z95.5 PRESENCE OF CORONARY ANGIOPLASTY IMPLANT 12/30/2016 QUIN SIDDIQI MD Ot E11.9 TYPE 2 DIABETES MELLITUS WITHOUT COMPLIC 12/30/2016 QUIN SIDDIQI MD Ot I10 ESSENTIAL (PRIMARY) HYPERTENSION 12/30/2016 QUIN SIDDIQI MD Ot I25.10 ATHSCL HEART DISEASE OF [place] CORONARY 12/30/2016 QUIN SIDDIQI MD Ot R51 HEADACHE 12/30/2016 QUIN SIDDIQI MD Ot Z79.4 RETIREMENT (CURRENT) USE OF INSULIN 12/30/2016 QUIN SIDDIQI MD Ot Z79.84 RETIREMENT (CURRENT) USE OF ORAL HYPOGLYC 12/30/2016 QUIN SIDDIQI MD Ot Z79.899 OTHER RETIREMENT (CURRENT) DRUG THERAPY 12/30/2016 QUIN SIDDIQI MD Ot Z95.5 PRESENCE OF CORONARY ANGIOPLASTY IMPLANT 12/30/2016 ROXANA MELVIN DOI Ot E11.65 TYPE 2 DIABETES MELLITUS WITH HYPERGLYCE 12/30/2016 AZEEM MELVIN DO Ot G43.909 MIGRAINE, UNSP, NOT INTRACTABLE, WITHOUT 12/30/2016 OLEGARIO BOSE AZEEM Ot I10 ESSENTIAL (PRIMARY) HYPERTENSION 12/30/2016 ROXANA MELVIN DOI Ot I25.10 ATHSCL HEART DISEASE OF [place] CORONARY 12/30/2016 AZEEM MELVIN DO Ot K31.84 GASTROPARESIS 12/30/2016 AZEEM MELVIN DO Ot R07.89 OTHER CHEST PAIN 12/30/2016 AZEEM MELVIN DO Ot Z79.4 TECHNICAL SUPPORT TECHNICIAN (CURRENT) USE OF INSULIN 12/30/2016 AZEEM MELVIN DO Ot Z86.718 PERSONAL HISTORY OF OTHER VENOUS THROMBO 12/30/2016 ROXANA MELVIN DOI Ot Z87.891 PERSONAL HISTORY OF NICOTINE DEPENDENCE 12/30/2016 AZEEM MELVIN DO Ot Z91.19 PATIENT'S NONCOMPLIANCE W [facility] TR 12/30/2016 AZEEM MELVIN DO Ot Z95.5 PRESENCE OF CORONARY ANGIOPLASTY IMPLANT 01/14/2017 RONEN SHAW MECHANIC GENERAL OPERATIONAL TEST Ot R05 COUGH 01/14/2017 RONEN SHAW MECHANIC GENERAL OPERATIONAL TEST Ot R50.9 FEVER, UNSPECIFIED 01/20/2017 RONEN SHAW MECHANIC GENERAL OPERATIONAL TEST Ot R05 COUGH 01/20/2017 RONEN SHAW MECHANIC GENERAL OPERATIONAL TEST Ot R50.9 FEVER, UNSPECIFIED 02/05/2017 RONEN SHAW MECHANIC GENERAL OPERATIONAL TEST Ot R05 COUGH 02/05/2017 RONEN SHAW MECHANIC GENERAL OPERATIONAL TEST Ot R50.9 FEVER, UNSPECIFIED 02/09/2017 LORNA HENRY Ot E11.9 TYPE 2 DIABETES MELLITUS WITHOUT COMPLIC 02/09/2017 LORNA HENRY Ot H72.92 UNSPECIFIED PERFORATION OF TYMPANIC MEMB 02/09/2017 LORNA HENRY Ot H92.02 OTALGIA, LEFT EAR 02/09/2017 LORNA HENRY Ot I10 ESSENTIAL (PRIMARY) HYPERTENSION 02/09/2017 LORNA HENRY Ot Z79.4 TECHNICAL SUPPORT TECHNICIAN (CURRENT) USE OF INSULIN 02/09/2017 LORNA HENRY Ot Z79.82 RETIREMENT (CURRENT) USE OF ASPIRIN 02/09/2017 LORNA HENRY Ot Z79.899 OTHER RETIREMENT (CURRENT) DRUG THERAPY 02/09/2017 LORNA HENRY Ot Z87.891 PERSONAL HISTORY OF NICOTINE DEPENDENCE 02/09/2017 LORNA HENRY Ot Z95.5 PRESENCE OF CORONARY ANGIOPLASTY IMPLANT 02/11/2017 LORNA HENRY Ot E11.9 TYPE 2 DIABETES MELLITUS WITHOUT COMPLIC 02/11/2017 LORNA HENRY Ot H72.92 UNSPECIFIED PERFORATION OF TYMPANIC MEMB 02/11/2017 LORNA HENRY Ot H92.02 OTALGIA, LEFT EAR 02/11/2017 LORNA HENRY Ot I10 ESSENTIAL (PRIMARY) HYPERTENSION 02/11/2017 LORNA HENRY Ot Z79.4 TECHNICAL SUPPORT TECHNICIAN (CURRENT) USE OF INSULIN 02/11/2017 LORNA HENRY Ot Z79.82 RETIREMENT (CURRENT) USE OF ASPIRIN 02/11/2017 LORNA HENRY Ot Z79.899 OTHER RETIREMENT (CURRENT) DRUG THERAPY 02/11/2017 LORNA HENRY Ot Z87.891 PERSONAL HISTORY OF NICOTINE DEPENDENCE 02/11/2017 LORNA HENRY Ot Z95.5 PRESENCE OF CORONARY ANGIOPLASTY IMPLANT 02/16/2017 LINDSEY SMITH, ANNE MARIE Mckinley Ot I87.2 VENOUS INSUFFICIENCY (CHRONIC) (PERIPHER 03/08/2017 JR MARIE APRN Ot E11.65 TYPE 2 DIABETES MELLITUS WITH HYPERGLYCE 03/08/2017 JR MARIE APRN Ot H66.91 OTITIS MEDIA, UNSPECIFIED, RIGHT EAR 03/08/2017 JR MARIE APRN Ot R11.2 NAUSEA WITH VOMITING, UNSPECIFIED 03/08/2017 JR MARIE APRN Ot Z79.4 RETIREMENT (CURRENT) USE OF INSULIN 03/08/2017 JR MARIE APRN Ot Z79.82 RETIREMENT (CURRENT) USE OF ASPIRIN 03/08/2017 JR MARIE MECHANIC GENERAL OPERATIONAL TEST Ot Z79.899 OTHER RETIREMENT (CURRENT) DRUG THERAPY 03/14/2017 JR MARIE MECHANIC GENERAL OPERATIONAL TEST Ot E11.65 TYPE 2 DIABETES MELLITUS WITH HYPERGLYCE 03/14/2017 JR MARIE MECHANIC GENERAL OPERATIONAL TEST Ot F17.210 NICOTINE DEPENDENCE, CIGARETTES, UNCOMPL 03/14/2017 JR MARIE MECHANIC GENERAL OPERATIONAL TEST Ot I10 ESSENTIAL (PRIMARY) HYPERTENSION 03/14/2017 JR MARIE MECHANIC GENERAL OPERATIONAL TEST Ot I25.10 ATHSCL HEART DISEASE OF [place] CORONARY 03/14/2017 JR MARIE MECHANIC GENERAL OPERATIONAL TEST Ot R07.9 CHEST PAIN, UNSPECIFIED 03/14/2017 JR MARIE APRN Ot Z79.4 RETIREMENT (CURRENT) USE OF INSULIN 03/14/2017 JR MARIE MECHANIC GENERAL OPERATIONAL TEST Ot Z79.899 OTHER TECHNICAL SUPPORT TECHNICIAN (CURRENT) DRUG THERAPY 03/14/2017 JR MARIE APRN Ot Z95.5 PRESENCE OF CORONARY ANGIOPLASTY IMPLANT 03/15/2017 LINDSEY SMITH, ANNE MARIE Mckinley Ot I87.2 VENOUS INSUFFICIENCY (CHRONIC) (PERIPHER 04/15/2017 ANNE MARIE PORTILLO MD Ot I87.2 VENOUS INSUFFICIENCY (CHRONIC) (PERIPHER 05/13/2017 Ot 250.02 DIAB JONATHAN WO COMPL, TYPE II OR UNSPEC TY 05/13/2017 ISIDRO SMITH FAC, RICH HARGROVE CCDS Ot Z95.5 PRESENCE OF CORONARY ANGIOPLASTY IMPLANT 05/13/2017 BAISHIRA SHIRA L VENDOR ANALYST Ot E78.5 HYPERLIPIDEMIA, UNSPECIFIED 05/13/2017 BAIMA, SHIRA L VENDOR ANALYST Ot I10 ESSENTIAL (PRIMARY) HYPERTENSION 05/13/2017 BAIMA SHIRA L VENDOR ANALYST Ot I25.10 ATHSCL HEART DISEASE OF [place] CORONARY 05/13/2017 BAIMA SHIRA L VENDOR ANALYST Ot R11.10 VOMITING, UNSPECIFIED 05/13/2017 BAIMA, SHIRA L VENDOR ANALYST Ot Z72.0 TOBACCO USE 05/13/2017 BAIMA SHIRA L VENDOR ANALYST Ot E78.5 HYPERLIPIDEMIA, UNSPECIFIED 05/13/2017 BAIMA, SHIRA L VENDOR ANALYST Ot I10 ESSENTIAL (PRIMARY) HYPERTENSION 05/13/2017 BAIMA SHIRA L VENDOR ANALYST Ot I25.10 ATHSCL HEART DISEASE OF [place] CORONARY 05/13/2017 BAIMA, SHIRA L VENDOR ANALYST Ot Z72.0 TOBACCO USE 05/13/2017 SHIRA BOOTHE VENDOR ANALYST Ot E78.5 HYPERLIPIDEMIA, UNSPECIFIED 05/13/2017 SHIRA BOOTHE VENDOR ANALYST Ot I10 ESSENTIAL (PRIMARY) HYPERTENSION 05/13/2017 SHIRA BOOTHE VENDOR ANALYST Ot I25.10 ATHSCL HEART DISEASE OF [place] CORONARY 05/13/2017 SHYANN SHIRA [employer] HARPERP Ot Z72.0 TOBACCO USE 05/13/2017 KIM FUNEZ DO Ot G47.33 OBSTRUCTIVE SLEEP APNEA (ADULT) (PEDIATR 05/13/2017 KIM FUNEZ DO Ot I25.10 ATHSCL HEART DISEASE OF [place] CORONARY 05/13/2017 KIM FUNEZ DO Ot R05 COUGH 05/13/2017 KIM FUNEZ DO Ot Z72.0 TOBACCO USE 05/13/2017 RONEN SHAW APRN Ot R05 COUGH 05/13/2017 RONEN SHAW APRN Ot R50.9 FEVER, UNSPECIFIED 05/13/2017 LINDSEY SMITH, ANNE MARIE Mckinley Ot I87.2 VENOUS INSUFFICIENCY (CHRONIC) (PERIPHER 05/13/2017 LINDSEY SMITH, ANNE MARIE Mckinley Ot I87.2 VENOUS INSUFFICIENCY (CHRONIC) (PERIPHER 05/13/2017 LINDSEY SMITH, ANNE MARIE Mckinley Ot I87.2 VENOUS INSUFFICIENCY (CHRONIC) (PERIPHER Procedures Code Description [place] [address] [employer] 2013 92819 A1C (IN-HOUSE) 26869 GLUCOSE FINGER STICK 08/24/2014 75622 [employer] 2013 65667 CRYOTHERAPY OF SKIN 10/19/2014 00461 A1C (IN-HOUSE) 47092 UA W/ CULTURE IF INDICATED 03/12/2015 37.22 LEFT HEART CARDIAC CATH 07/15/2015 88.53 LT HEART ANGIOCARDIOGRAM 07/15/2015 88.56 CORONAR ARTERIOGR-2 CATH 07/15/2015 [id number] INSERTION OF INFUSION DEV INTO SUP VENA 12/02/2016 [id number] INSERTION OF VAD INTO CHEST SUBCU/FASCIA 12/02/2016 Results Test Result Range Complete blood count (CBC) with automated white blood cell (WBC) differential - 10/16/16 19:18 Blood leukocytes automated count (number/volume) 10.6 10*3/ uL 4.3-11.0 Blood erythrocytes automated count (number/volume) 4.72 10*6 /uL 4.35-5.85 Venous blood hemoglobin measurement (mass/volume) 14.3 g/dL 11.5-16.0 Blood hematocrit (volume fraction) 41 % 35-52 Automated erythrocyte mean corpuscular volume 88 [foz_us] 80-99 Automated erythrocyte mean corpuscular hemoglobin (mass per erythrocyte) 30 pg 25-34 Automated erythrocyte mean corpuscular hemoglobin concentration measurement ( mass/volume) 35 g/dL 32-36 Automated erythrocyte distribution width ratio 12.9 % 10.0-14.5 Automated blood platelet count (count/volume) 274 10*3/uL 130-400 Automated blood platelet mean volume measurement 10.5 [foz_ us] 7.4-10.4 Automated blood neutrophils/100 leukocytes 65 % 42-75 Automated blood lymphocytes/100 leukocytes 27 % 12-44 Blood monocytes/100 leukocytes 5 % 0-12 Automated blood eosinophils/100 leukocytes 2 % 0-10 Automated blood basophils/100 leukocytes 1 % 0-10 Blood neutrophils automated count (number/volume) 6.8 10*3 1.8-7.8 Blood lymphocytes automated count (number/volume) 2.9 10*3 1.0-4.0 Blood monocytes automated count (number/volume) 0.6 10*3 0.0-1.0 Automated eosinophil count 0.2 10*3/uL 0.0-0.3 Automated blood basophil count (count/volume) 0.1 10*3/uL 0.0-0.1 PT panel in platelet poor plasma by coagulation assay - 10/16/16 19:18 Prothrombin time (PT) in platelet poor plasma by coagulation assay 13.5 s 12.2-14.7 INR in platelet poor plasma or blood by coagulation assay 1.1 0.8-1.4 Activated partial thromboplastin time (aPTT) in platelet poor plasma bycoagulation assay - 10/16/16 19:18 Activated partial thromboplastin time (aPTT) in platelet poor plasma bycoagulation assay 24 s 24-35 Comprehensive metabolic panel - 10/16/16 19:18 Serum or plasma sodium measurement (moles/volume) 135 mmol/ L 135-145 Serum or plasma potassium measurement (moles/volume) 4.1 mmol/L 3.6-5.0 Serum or plasma chloride measurement (moles/volume) 105 mmol /L 98-107 Carbon dioxide 17 mmol/L 21-32 Serum or plasma anion gap determination (moles/volume) 13 mmol/L 5-14 Serum or plasma urea nitrogen measurement (mass/volume) 18 mg/dL 7-18 Serum or plasma creatinine measurement (mass/volume) 1.36 mg /dL 0.60-1.30 Serum or plasma urea nitrogen/creatinine mass ratio 13 NRG Serum or plasma creatinine measurement with calculation of estimated glomerular filtration rate 40 NRG Serum or plasma glucose measurement (mass/volume) 530 mg/dL 70-105 Serum or plasma calcium measurement (mass/volume) 9.7 mg/dL 8.5-10.1 Serum or plasma total bilirubin measurement (mass/volume) 0.3 mg/dL 0.1-1.0 Serum or plasma alkaline phosphatase measurement (enzymatic activity/volume) 74 U/L 40-136 Serum or plasma aspartate aminotransferase measurement (enzymatic activity/ volume) 12 U/L 5-34 Serum or plasma alanine aminotransferase measurement (enzymatic activity/volume ) 10 U/L 0-55 Serum or plasma protein measurement (mass/volume) 7.1 g/dL 6.4-8.2 Serum or plasma albumin measurement (mass/volume) 4.3 g/dL 3.2-4.5 Arterial blood gas measurement - 10/16/16 20:16 Blood pCO2 36 mm[Hg] 35-45 Blood pO2 90 mm[Hg] 79-93 Arterial blood bicarbonate measurement (moles/volume) 21 mmol/L 23-27 Arterial blood base excess by calculation -3.5 mmol/L -2.5-2.5 Arterial blood oxygen saturation measurement 97 % 94-100 * Inhaled oxygen flow rate ROOM AIR NRG Arterial blood pH measurement with patient temperature correction 7.38 7.37-7.43 Arterial blood carbon dioxide, total measurement (moles/volume) 22.0 mmol/L 21.0-31.0 Body site RT RAD NRG Assessment of wrist artery patency prior to arterial puncture YES-POS NRG Setting of ventilation mode NO NRG Measurement of body temperature 98.7 NRG Capillary blood glucose measurement by glucometer (mass/volume) - 10/16/16 21: 51 Capillary blood glucose measurement by glucometer (mass/volume) 246 mg/dL 70-110 Capillary blood glucose measurement by glucometer (mass/volume) - 11/26/16 09: 43 Capillary blood glucose measurement by glucometer (mass/volume) 578 mg/dL 70-110 Complete urinalysis with reflex to culture - 11/26/16 09:50 Urine color determination YELLOW NRG Urine clarity determination CLEAR NRG Urine pH measurement by test strip 6.5 5 -9 Specific gravity of urine by test strip 1.005 1.016-1.022 Urine protein assay by test strip, semi-quantitative 2+ NEGATIVE Urine glucose detection by automated test strip 4+ NEGATIVE Erythrocytes detection in urine sediment by light microscopy NEGATIVE NEGATIVE Urine ketones detection by automated test strip NEGATIVE NEGATIVE Urine nitrite detection by test strip NEGATIVE NEGATIVE Urine total bilirubin detection by test strip NEGATIVE NEGATIVE Urine urobilinogen measurement by automated test strip (mass/volume) NORMAL NORMAL Urine leukocyte esterase detection by dipstick NEGATIVE NEGATIVE Automated urine sediment erythrocyte count by microscopy (number/high power field) NONE NRG Automated urine sediment leukocyte count by microscopy (number/high power field ) NONE NRG Bacteria detection in urine sediment by light microscopy NEGATIVE NRG Squamous epithelial cells detection in urine sediment by light microscopy RARE NRG Crystals detection in urine sediment by light microscopy NONE NRG Casts detection in urine sediment by light microscopy NONE NRG Mucus detection in urine sediment by light microscopy NEGATIVE NRG Complete urinalysis with reflex to culture NO NRG Complete blood count (CBC) with automated white blood cell (WBC) differential - 11/26/16 10:30 Blood leukocytes automated count (number/volume) 9.4 10*3/ uL 4.3-11.0 Blood erythrocytes automated count (number/volume) 5.00 10*6 /uL 4.35-5.85 Venous blood hemoglobin measurement (mass/volume) 15.0 g/dL 11.5-16.0 Blood hematocrit (volume fraction) 43 % 35-52 Automated erythrocyte mean corpuscular volume 85 [foz_us] 80-99 Automated erythrocyte mean corpuscular hemoglobin (mass per erythrocyte) 30 pg 25-34 Automated erythrocyte mean corpuscular hemoglobin concentration measurement ( mass/volume) 35 g/dL 32-36 Automated erythrocyte distribution width ratio 13.0 % 10.0-14.5 Automated blood platelet count (count/volume) 280 10*3/uL 130-400 Automated blood platelet mean volume measurement 9.9 [foz_us ] 7.4-10.4 Automated blood neutrophils/100 leukocytes 71 % 42-75 Automated blood lymphocytes/100 leukocytes 22 % 12-44 Blood monocytes/100 leukocytes 5 % 0-12 Automated blood eosinophils/100 leukocytes 2 % 0-10 Automated blood basophils/100 leukocytes 1 % 0-10 Blood neutrophils automated count (number/volume) 6.6 10*3 1.8-7.8 Blood lymphocytes automated count (number/volume) 2.0 10*3 1.0-4.0 Blood monocytes automated count (number/volume) 0.5 10*3 0.0-1.0 Automated eosinophil count 0.2 10*3/uL 0.0-0.3 Automated blood basophil count (count/volume) 0.1 10*3/uL 0.0-0.1 Comprehensive metabolic panel - 11/26/16 10:30 Serum or plasma sodium measurement (moles/volume) 133 mmol/ L 135-145 Serum or plasma potassium measurement (moles/volume) 4.7 mmol/L 3.6-5.0 Serum or plasma chloride measurement (moles/volume) 101 mmol /L 98-107 Carbon dioxide 20 mmol/L 21-32 Serum or plasma anion gap determination (moles/volume) 12 mmol/L 5-14 Serum or plasma urea nitrogen measurement (mass/volume) 16 mg/dL 7-18 Serum or plasma creatinine measurement (mass/volume) 1.23 mg /dL 0.60-1.30 Serum or plasma urea nitrogen/creatinine mass ratio 13 NRG Serum or plasma creatinine measurement with calculation of estimated glomerular filtration rate 45 NRG Serum or plasma glucose measurement (mass/volume) 670 mg/dL 70-105 Serum or plasma calcium measurement (mass/volume) 10.0 mg/ dL 8.5-10.1 Serum or plasma total bilirubin measurement (mass/volume) 0.4 mg/dL 0.1-1.0 Serum or plasma alkaline phosphatase measurement (enzymatic activity/volume) 74 U/L 40-136 Serum or plasma aspartate aminotransferase measurement (enzymatic activity/ volume) 15 U/L 5-34 Serum or plasma alanine aminotransferase measurement (enzymatic activity/volume ) 13 U/L 0-55 Serum or plasma protein measurement (mass/volume) 7.4 g/dL 6.4-8.2 Serum or plasma albumin measurement (mass/volume) 4.3 g/dL 3.2-4.5 Hemoglobin A1c - 11/26/16 10:30 Hemoglobin A1c 9.4 % 4.5-6.2 Capillary blood glucose measurement by glucometer (mass/volume) - 11/26/16 12: 41 Capillary blood glucose measurement by glucometer (mass/volume) 399 mg/dL 70-110 Capillary blood glucose measurement by glucometer (mass/volume) - 11/26/16 13: 32 Capillary blood glucose measurement by glucometer (mass/volume) 258 mg/dL 70-110 Capillary blood glucose measurement by glucometer (mass/volume) - 11/26/16 14: 06 Capillary blood glucose measurement by glucometer (mass/volume) 232 mg/dL 70-110 Capillary blood glucose measurement by glucometer (mass/volume) - 11/30/16 08: 52 Capillary blood glucose measurement by glucometer (mass/volume) > mg/dL 70-110 Complete urinalysis with reflex to culture - 11/30/16 09:19 Urine color determination YELLOW NRG Urine clarity determination CLEAR NRG Urine pH measurement by test strip 6.5 5 -9 Specific gravity of urine by test strip 1.005 1.016-1.022 Urine protein assay by test strip, semi-quantitative NEGATIVE NEGATIVE Urine glucose detection by automated test strip 4+ NEGATIVE Erythrocytes detection in urine sediment by light microscopy NEGATIVE NEGATIVE Urine ketones detection by automated test strip NEGATIVE NEGATIVE Urine nitrite detection by test strip NEGATIVE NEGATIVE Urine total bilirubin detection by test strip NEGATIVE NEGATIVE Urine urobilinogen measurement by automated test strip (mass/volume) NORMAL NORMAL Urine leukocyte esterase detection by dipstick NEGATIVE NEGATIVE Automated urine sediment erythrocyte count by microscopy (number/high power field) NONE NRG Automated urine sediment leukocyte count by microscopy (number/high power field ) NONE NRG Bacteria detection in urine sediment by light microscopy TRACE NRG Squamous epithelial cells detection in urine sediment by light microscopy RARE NRG Crystals detection in urine sediment by light microscopy NONE NRG Casts detection in urine sediment by light microscopy NONE NRG Mucus detection in urine sediment by light microscopy NEGATIVE NRG Complete urinalysis with reflex to culture NO NRG Yeast detection in urine sediment by light microscopy FEW NRG Complete blood count (CBC) with automated white blood cell (WBC) differential - 11/30/16 13:00 Blood leukocytes automated count (number/volume) 12.1 10*3/ uL 4.3-11.0 Blood erythrocytes automated count (number/volume) 4.98 10*6 /uL 4.35-5.85 Venous blood hemoglobin measurement (mass/volume) 14.9 g/dL 11.5-16.0 Blood hematocrit (volume fraction) 41 % 35-52 Automated erythrocyte mean corpuscular volume 82 [foz_us] 80-99 Automated erythrocyte mean corpuscular hemoglobin (mass per erythrocyte) 30 pg 25-34 Automated erythrocyte mean corpuscular hemoglobin concentration measurement ( mass/volume) 37 g/dL 32-36 Automated erythrocyte distribution width ratio 12.7 % 10.0-14.5 Automated blood platelet count (count/volume) 233 10*3/uL 130-400 Automated blood platelet mean volume measurement 10.8 [foz_ us] 7.4-10.4 Automated blood neutrophils/100 leukocytes 70 % 42-75 Automated blood lymphocytes/100 leukocytes 22 % 12-44 Blood monocytes/100 leukocytes 5 % 0-12 Automated blood eosinophils/100 leukocytes 2 % 0-10 Automated blood basophils/100 leukocytes 1 % 0-10 Blood neutrophils automated count (number/volume) 8.5 10*3 1.8-7.8 Blood lymphocytes automated count (number/volume) 2.7 10*3 1.0-4.0 Blood monocytes automated count (number/volume) 0.6 10*3 0.0-1.0 Automated eosinophil count 0.3 10*3/uL 0.0-0.3 Automated blood basophil count (count/volume) 0.1 10*3/uL 0.0-0.1 PT panel in platelet poor plasma by coagulation assay - 11/30/16 13:00 Prothrombin time (PT) in platelet poor plasma by coagulation assay 12.1 s 12.2-14.7 INR in platelet poor plasma or blood by coagulation assay 0.9 0.8-1.4 Activated partial thromboplastin time (aPTT) in platelet poor plasma bycoagulation assay - 11/30/16 13:00 Activated partial thromboplastin time (aPTT) in platelet poor plasma bycoagulation assay 21 s 24-35 Comprehensive metabolic panel - 11/30/16 13:00 Serum or plasma sodium measurement (moles/volume) 128 mmol/ L 135-145 Serum or plasma potassium measurement (moles/volume) 4.7 mmol/L 3.6-5.0 Serum or plasma chloride measurement (moles/volume) 93 mmol/ L 98-107 Carbon dioxide 22 mmol/L 21-32 Serum or plasma anion gap determination (moles/volume) 13 mmol/L 5-14 Serum or plasma urea nitrogen measurement (mass/volume) 30 mg/dL 7-18 Serum or plasma creatinine measurement (mass/volume) 1.54 mg /dL 0.60-1.30 Serum or plasma urea nitrogen/creatinine mass ratio 19 NRG Serum or plasma creatinine measurement with calculation of estimated glomerular filtration rate 35 NRG Serum or plasma glucose measurement (mass/volume) 823 mg/dL 70-105 Serum or plasma calcium measurement (mass/volume) 9.8 mg/dL 8.5-10.1 Serum or plasma total bilirubin measurement (mass/volume) 0.6 mg/dL 0.1-1.0 Serum or plasma alkaline phosphatase measurement (enzymatic activity/volume) 93 U/L 40-136 Serum or plasma aspartate aminotransferase measurement (enzymatic activity/ volume) 7 U/L 5-34 Serum or plasma alanine aminotransferase measurement (enzymatic activity/volume ) 9 U/L 0-55 Serum or plasma protein measurement (mass/volume) 7.6 g/dL 6.4-8.2 Serum or plasma albumin measurement (mass/volume) 4.5 g/dL 3.2-4.5 Serum or plasma troponin i.cardiac measurement (mass/volume) - 11/30/16 13:00 Serum or plasma troponin i.cardiac measurement (mass/volume) < ng/mL <0.30 Serum or plasma amylase measurement (enzymatic activity/volume) - 11/30/16 13: 00 Serum or plasma amylase measurement (enzymatic activity/volume) 52 U/L 25-125 Lipase - 11/30/16 13:00 Lipase 52 U/L 8-78 Capillary blood glucose measurement by glucometer (mass/volume) - 11/30/16 18: 34 Capillary blood glucose measurement by glucometer (mass/volume) 546 mg/dL 70-110 Complete blood count (CBC) with automated white blood cell (WBC) differential - 12/01/16 06:19 Blood leukocytes automated count (number/volume) 11.7 10*3/ uL 4.3-11.0 Blood erythrocytes automated count (number/volume) 4.26 10*6 /uL 4.35-5.85 Venous blood hemoglobin measurement (mass/volume) 12.6 g/dL 11.5-16.0 Blood hematocrit (volume fraction) 36 % 35-52 Automated erythrocyte mean corpuscular volume 84 [foz_us] 80-99 Automated erythrocyte mean corpuscular hemoglobin (mass per erythrocyte) 30 pg 25-34 Automated erythrocyte mean corpuscular hemoglobin concentration measurement ( mass/volume) 35 g/dL 32-36 Automated erythrocyte distribution width ratio 12.9 % 10.0-14.5 Automated blood platelet count (count/volume) 200 10*3/uL 130-400 Automated blood platelet mean volume measurement 10.7 [foz_ us] 7.4-10.4 Automated blood neutrophils/100 leukocytes 58 % 42-75 Automated blood lymphocytes/100 leukocytes 33 % 12-44 Blood monocytes/100 leukocytes 5 % 0-12 Automated blood eosinophils/100 leukocytes 4 % 0-10 Automated blood basophils/100 leukocytes 1 % 0-10 Blood neutrophils automated count (number/volume) 6.8 10*3 1.8-7.8 Blood lymphocytes automated count (number/volume) 3.8 10*3 1.0-4.0 Blood monocytes automated count (number/volume) 0.6 10*3 0.0-1.0 Automated eosinophil count 0.5 10*3/uL 0.0-0.3 Automated blood basophil count (count/volume) 0.1 10*3/uL 0.0-0.1 Comprehensive metabolic panel - 12/01/16 06:19 Serum or plasma sodium measurement (moles/volume) 138 mmol/ L 135-145 Serum or plasma potassium measurement (moles/volume) 3.9 mmol/L 3.6-5.0 Serum or plasma chloride measurement (moles/volume) 110 mmol /L 98-107 Carbon dioxide 21 mmol/L 21-32 Serum or plasma anion gap determination (moles/volume) 7 mmol/L 5-14 Serum or plasma urea nitrogen measurement (mass/volume) 25 mg/dL 7-18 Serum or plasma creatinine measurement (mass/volume) 0.92 mg /dL 0.60-1.30 Serum or plasma urea nitrogen/creatinine mass ratio 27 NRG Serum or plasma creatinine measurement with calculation of estimated glomerular filtration rate > NRG Serum or plasma glucose measurement (mass/volume) 220 mg/dL 70-105 Serum or plasma calcium measurement (mass/volume) 8.4 mg/dL 8.5-10.1 Serum or plasma total bilirubin measurement (mass/volume) 0.5 mg/dL 0.1-1.0 Serum or plasma alkaline phosphatase measurement (enzymatic activity/volume) 70 U/L 40-136 Serum or plasma aspartate aminotransferase measurement (enzymatic activity/ volume) 9 U/L 5-34 Serum or plasma alanine aminotransferase measurement (enzymatic activity/volume ) 6 U/L 0-55 Serum or plasma protein measurement (mass/volume) 6.1 g/dL 6.4-8.2 Serum or plasma albumin measurement (mass/volume) 3.6 g/dL 3.2-4.5 Capillary blood glucose measurement by glucometer (mass/volume) - 12/01/16 10: 12 Capillary blood glucose measurement by glucometer (mass/volume) 208 mg/dL 70-110 Methicillin resistant Staphylococcus aureus (MRSA) screening culture - 10:15 Methicillin resistant Staphylococcus aureus (MRSA) screening culture NEG NRG Capillary blood glucose measurement by glucometer (mass/volume) - 12/01/16 15: 18 Capillary blood glucose measurement by glucometer (mass/volume) 118 mg/dL 70-110 Capillary blood glucose measurement by glucometer (mass/volume) - 12/01/16 20: 34 Capillary blood glucose measurement by glucometer (mass/volume) 252 mg/dL 70-110 Capillary blood glucose measurement by glucometer (mass/volume) - 12/02/16 05: 09 Capillary blood glucose measurement by glucometer (mass/volume) 236 mg/dL 70-110 Complete blood count (CBC) with automated white blood cell (WBC) differential - 12/02/16 06:05 Blood leukocytes automated count (number/volume) 9.8 10*3/ uL 4.3-11.0 Blood erythrocytes automated count (number/volume) 3.94 10*6 /uL 4.35-5.85 Venous blood hemoglobin measurement (mass/volume) 11.7 g/dL 11.5-16.0 Blood hematocrit (volume fraction) 34 % 35-52 Automated erythrocyte mean corpuscular volume 86 [foz_us] 80-99 Automated erythrocyte mean corpuscular hemoglobin (mass per erythrocyte) 30 pg 25-34 Automated erythrocyte mean corpuscular hemoglobin concentration measurement ( mass/volume) 35 g/dL 32-36 Automated erythrocyte distribution width ratio 12.8 % 10.0-14.5 Automated blood platelet count (count/volume) 175 10*3/uL 130-400 Automated blood platelet mean volume measurement 10.4 [foz_ us] 7.4-10.4 Automated blood neutrophils/100 leukocytes 53 % 42-75 Automated blood lymphocytes/100 leukocytes 36 % 12-44 Blood monocytes/100 leukocytes 5 % 0-12 Automated blood eosinophils/100 leukocytes 5 % 0-10 Automated blood basophils/100 leukocytes 1 % 0-10 Blood neutrophils automated count (number/volume) 5.2 10*3 1.8-7.8 Blood lymphocytes automated count (number/volume) 3.5 10*3 1.0-4.0 Blood monocytes automated count (number/volume) 0.5 10*3 0.0-1.0 Automated eosinophil count 0.5 10*3/uL 0.0-0.3 Automated blood basophil count (count/volume) 0.1 10*3/uL 0.0-0.1 Comprehensive metabolic panel - 12/02/16 06:05 Serum or plasma sodium measurement (moles/volume) 137 mmol/ L 135-145 Serum or plasma potassium measurement (moles/volume) 3.8 mmol/L 3.6-5.0 Serum or plasma chloride measurement (moles/volume) 112 mmol /L 98-107 Carbon dioxide 18 mmol/L 21-32 Serum or plasma anion gap determination (moles/volume) 7 mmol/L 5-14 Serum or plasma urea nitrogen measurement (mass/volume) 18 mg/dL 7-18 Serum or plasma creatinine measurement (mass/volume) 0.85 mg /dL 0.60-1.30 Serum or plasma urea nitrogen/creatinine mass ratio 21 NRG Serum or plasma creatinine measurement with calculation of estimated glomerular filtration rate > NRG Serum or plasma glucose measurement (mass/volume) 196 mg/dL 70-105 Serum or plasma calcium measurement (mass/volume) 8.0 mg/dL 8.5-10.1 Serum or plasma total bilirubin measurement (mass/volume) 0.2 mg/dL 0.1-1.0 Serum or plasma alkaline phosphatase measurement (enzymatic activity/volume) 59 U/L 40-136 Serum or plasma aspartate aminotransferase measurement (enzymatic activity/ volume) 8 U/L 5-34 Serum or plasma alanine aminotransferase measurement (enzymatic activity/volume ) 8 U/L 0-55 Serum or plasma protein measurement (mass/volume) 5.8 g/dL 6.4-8.2 Serum or plasma albumin measurement (mass/volume) 3.4 g/dL 3.2-4.5 Capillary blood glucose measurement by glucometer (mass/volume) - 12/02/16 09: 52 Capillary blood glucose measurement by glucometer (mass/volume) 144 mg/dL 70-110 Capillary blood glucose measurement by glucometer (mass/volume) - 12/02/16 13: 50 Capillary blood glucose measurement by glucometer (mass/volume) 127 mg/dL 70-110 Complete blood count (CBC) with automated white blood cell (WBC) differential - 12/25/16 15:00 Blood leukocytes automated count (number/volume) 11.6 10*3/ uL 4.3-11.0 Blood erythrocytes automated count (number/volume) 4.92 10*6 /uL 4.35-5.85 Venous blood hemoglobin measurement (mass/volume) 14.6 g/dL 11.5-16.0 Blood hematocrit (volume fraction) 42 % 35-52 Automated erythrocyte mean corpuscular volume 85 [foz_us] 80-99 Automated erythrocyte mean corpuscular hemoglobin (mass per erythrocyte) 30 pg 25-34 Automated erythrocyte mean corpuscular hemoglobin concentration measurement ( mass/volume) 35 g/dL 32-36 Automated erythrocyte distribution width ratio 13.3 % 10.0-14.5 Automated blood platelet count (count/volume) 281 10*3/uL 130-400 Automated blood platelet mean volume measurement 9.9 [foz_us ] 7.4-10.4 Automated blood neutrophils/100 leukocytes 67 % 42-75 Automated blood lymphocytes/100 leukocytes 27 % 12-44 Blood monocytes/100 leukocytes 5 % 0-12 Automated blood eosinophils/100 leukocytes 1 % 0-10 Automated blood basophils/100 leukocytes 1 % 0-10 Blood neutrophils automated count (number/volume) 7.8 10*3 1.8-7.8 Blood lymphocytes automated count (number/volume) 3.1 10*3 1.0-4.0 Blood monocytes automated count (number/volume) 0.5 10*3 0.0-1.0 Automated eosinophil count 0.1 10*3/uL 0.0-0.3 Automated blood basophil count (count/volume) 0.1 10*3/uL 0.0-0.1 Comprehensive metabolic panel - 12/25/16 15:00 Serum or plasma sodium measurement (moles/volume) 140 mmol/ L 135-145 Serum or plasma potassium measurement (moles/volume) 3.9 mmol/L 3.6-5.0 Serum or plasma chloride measurement (moles/volume) 104 mmol /L 98-107 Carbon dioxide 23 mmol/L 21-32 Serum or plasma anion gap determination (moles/volume) 13 mmol/L 5-14 Serum or plasma urea nitrogen measurement (mass/volume) 12 mg/dL 7-18 Serum or plasma creatinine measurement (mass/volume) 0.89 mg /dL 0.60-1.30 Serum or plasma urea nitrogen/creatinine mass ratio 13 NRG Serum or plasma creatinine measurement with calculation of estimated glomerular filtration rate > NRG Serum or plasma glucose measurement (mass/volume) 213 mg/dL 70-105 Serum or plasma calcium measurement (mass/volume) 9.8 mg/dL 8.5-10.1 Serum or plasma total bilirubin measurement (mass/volume) 0.4 mg/dL 0.1-1.0 Serum or plasma alkaline phosphatase measurement (enzymatic activity/volume) 88 U/L 40-136 Serum or plasma aspartate aminotransferase measurement (enzymatic activity/ volume) 10 U/L 5-34 Serum or plasma alanine aminotransferase measurement (enzymatic activity/volume ) 10 U/L 0-55 Serum or plasma protein measurement (mass/volume) 7.1 g/dL 6.4-8.2 Serum or plasma albumin measurement (mass/volume) 4.2 g/dL 3.2-4.5 Complete blood count (CBC) with automated white blood cell (WBC) differential - 12/29/16 11:00 Blood leukocytes automated count (number/volume) 8.7 10*3/ uL 4.3-11.0 Blood erythrocytes automated count (number/volume) 3.91 10*6 /uL 4.35-5.85 Venous blood hemoglobin measurement (mass/volume) 11.7 g/dL 11.5-16.0 Blood hematocrit (volume fraction) 34 % 35-52 Automated erythrocyte mean corpuscular volume 86 [foz_us] 80-99 Automated erythrocyte mean corpuscular hemoglobin (mass per erythrocyte) 30 pg 25-34 Automated erythrocyte mean corpuscular hemoglobin concentration measurement ( mass/volume) 35 g/dL 32-36 Automated erythrocyte distribution width ratio 12.9 % 10.0-14.5 Automated blood platelet count (count/volume) 179 10*3/uL 130-400 Automated blood platelet mean volume measurement 10.2 [foz_ us] 7.4-10.4 Automated blood neutrophils/100 leukocytes 69 % 42-75 Automated blood lymphocytes/100 leukocytes 24 % 12-44 Blood monocytes/100 leukocytes 4 % 0-12 Automated blood eosinophils/100 leukocytes 2 % 0-10 Automated blood basophils/100 leukocytes 1 % 0-10 Blood neutrophils automated count (number/volume) 6.0 10*3 1.8-7.8 Blood lymphocytes automated count (number/volume) 2.1 10*3 1.0-4.0 Blood monocytes automated count (number/volume) 0.3 10*3 0.0-1.0 Automated eosinophil count 0.2 10*3/uL 0.0-0.3 Automated blood basophil count (count/volume) 0.1 10*3/uL 0.0-0.1 PT panel in platelet poor plasma by coagulation assay - 12/29/16 11:00 Prothrombin time (PT) in platelet poor plasma by coagulation assay 13.0 s 12.2-14.7 INR in platelet poor plasma or blood by coagulation assay 1.0 0.8-1.4 Activated partial thromboplastin time (aPTT) in platelet poor plasma bycoagulation assay - 12/29/16 11:00 Activated partial thromboplastin time (aPTT) in platelet poor plasma bycoagulation assay 23 s 24-35 Comprehensive metabolic panel - 12/29/16 11:00 Serum or plasma sodium measurement (moles/volume) 136 mmol/ L 135-145 Serum or plasma potassium measurement (moles/volume) 3.5 mmol/L 3.6-5.0 Serum or plasma chloride measurement (moles/volume) 109 mmol /L 98-107 Carbon dioxide 20 mmol/L 21-32 Serum or plasma anion gap determination (moles/volume) 7 mmol/L 5-14 Serum or plasma urea nitrogen measurement (mass/volume) 14 mg/dL 7-18 Serum or plasma creatinine measurement (mass/volume) 0.81 mg /dL 0.60-1.30 Serum or plasma urea nitrogen/creatinine mass ratio 17 NRG Serum or plasma creatinine measurement with calculation of estimated glomerular filtration rate > NRG Serum or plasma glucose measurement (mass/volume) 407 mg/dL 70-105 Serum or plasma calcium measurement (mass/volume) 7.7 mg/dL 8.5-10.1 Serum or plasma total bilirubin measurement (mass/volume) 0.3 mg/dL 0.1-1.0 Serum or plasma alkaline phosphatase measurement (enzymatic activity/volume) 51 U/L 40-136 Serum or plasma aspartate aminotransferase measurement (enzymatic activity/ volume) 9 U/L 5-34 Serum or plasma alanine aminotransferase measurement (enzymatic activity/volume ) 8 U/L 0-55 Serum or plasma protein measurement (mass/volume) 5.4 g/dL 6.4-8.2 Serum or plasma albumin measurement (mass/volume) 3.3 g/dL 3.2-4.5 Magnesium - 12/29/16 11:00 Magnesium 1.5 mg/dL 1.8-2.4 Serum or plasma troponin i.cardiac measurement (mass/volume) - 12/29/16 11:00 Serum or plasma troponin i.cardiac measurement (mass/volume) < ng/mL <0.30 Myoglobin, serum - 12/29/16 11:00 Myoglobin, serum 25.1 ng/mL 10.0-92.0 Fibrin D-dimer FEU measurement in platelet poor plasma (mass/volume) - 11:00 Fibrin D-dimer FEU measurement in platelet poor plasma (mass/volume) 0.34 ug/mL 0.00-0.49 Capillary blood glucose measurement by glucometer (mass/volume) - 12/29/16 14: 10 Capillary blood glucose measurement by glucometer (mass/volume) 291 mg/dL 70-110 Serum or plasma troponin i.cardiac measurement (mass/volume) - 12/29/16 18:15 Serum or plasma troponin i.cardiac measurement (mass/volume) < ng/mL <0.30 Capillary blood glucose measurement by glucometer (mass/volume) - 12/29/16 20: 50 Capillary blood glucose measurement by glucometer (mass/volume) 344 mg/dL 70-110 Comprehensive metabolic panel - 12/30/16 04:40 Serum or plasma sodium measurement (moles/volume) 140 mmol/ L 135-145 Serum or plasma potassium measurement (moles/volume) 4.3 mmol/L 3.6-5.0 Serum or plasma chloride measurement (moles/volume) 110 mmol /L 98-107 Carbon dioxide 21 mmol/L 21-32 Serum or plasma anion gap determination (moles/volume) 9 mmol/L 5-14 Serum or plasma urea nitrogen measurement (mass/volume) 20 mg/dL 7-18 Serum or plasma creatinine measurement (mass/volume) 0.89 mg /dL 0.60-1.30 Serum or plasma urea nitrogen/creatinine mass ratio 22 NRG Serum or plasma creatinine measurement with calculation of estimated glomerular filtration rate > NRG Serum or plasma glucose measurement (mass/volume) 333 mg/dL 70-105 Serum or plasma calcium measurement (mass/volume) 8.6 mg/dL 8.5-10.1 Serum or plasma total bilirubin measurement (mass/volume) 0.2 mg/dL 0.1-1.0 Serum or plasma alkaline phosphatase measurement (enzymatic activity/volume) 63 U/L 40-136 Serum or plasma aspartate aminotransferase measurement (enzymatic activity/ volume) 9 U/L 5-34 Serum or plasma alanine aminotransferase measurement (enzymatic activity/volume ) 7 U/L 0-55 Serum or plasma protein measurement (mass/volume) 5.7 g/dL 6.4-8.2 Serum or plasma albumin measurement (mass/volume) 3.3 g/dL 3.2-4.5 Magnesium - 12/30/16 04:40 Magnesium 2.0 mg/dL 1.8-2.4 Lipid 1996 panel - 12/30/16 04:40 Serum or plasma triglyceride measurement (mass/volume) 315 mg/dL <150 Serum or plasma cholesterol measurement (mass/volume) 213 mg /dL < 200 Serum or plasma cholesterol in HDL measurement (mass/volume) 29 mg/dL 40-60 Cholesterol in LDL [mass/volume] in serum or plasma by direct assay 153 mg/dL 1-129 Serum or plasma cholesterol in VLDL measurement (mass/volume) 63 mg/dL 5-40 Capillary blood glucose measurement by glucometer (mass/volume) - 12/30/16 09: 51 Capillary blood glucose measurement by glucometer (mass/volume) 285 mg/dL 70-110 Complete urinalysis with reflex to culture - 03/08/17 15:59 Urine color determination YELLOW NRG Urine clarity determination CLEAR NRG Urine pH measurement by test strip 6.5 5 -9 Specific gravity of urine by test strip 1.010 1.016-1.022 Urine protein assay by test strip, semi-quantitative 2+ NEGATIVE Urine glucose detection by automated test strip 4+ NEGATIVE Erythrocytes detection in urine sediment by light microscopy NEGATIVE NEGATIVE Urine ketones detection by automated test strip NEGATIVE NEGATIVE Urine nitrite detection by test strip NEGATIVE NEGATIVE Urine total bilirubin detection by test strip NEGATIVE NEGATIVE Urine urobilinogen measurement by automated test strip (mass/volume) NORMAL NORMAL Urine leukocyte esterase detection by dipstick 1+ NEGATIVE Automated urine sediment erythrocyte count by microscopy (number/high power field) NONE NRG Automated urine sediment leukocyte count by microscopy (number/high power field ) RARE NRG Bacteria detection in urine sediment by light microscopy NEGATIVE NRG Squamous epithelial cells detection in urine sediment by light microscopy 0-2 NRG Crystals detection in urine sediment by light microscopy NONE NRG Casts detection in urine sediment by light microscopy NONE NRG Mucus detection in urine sediment by light microscopy NEGATIVE NRG Complete urinalysis with reflex to culture NO NRG Capillary blood glucose measurement by glucometer (mass/volume) - 03/08/17 16: 05 Capillary blood glucose measurement by glucometer (mass/volume) > mg/dL 70-110 Complete blood count (CBC) with automated white blood cell (WBC) differential - 03/08/17 16:05 Blood leukocytes automated count (number/volume) 12.2 10*3/ uL 4.3-11.0 Blood erythrocytes automated count (number/volume) 4.74 10*6 /uL 4.35-5.85 Venous blood hemoglobin measurement (mass/volume) 13.9 g/dL 11.5-16.0 Blood hematocrit (volume fraction) 40 % 35-52 Automated erythrocyte mean corpuscular volume 85 [foz_us] 80-99 Automated erythrocyte mean corpuscular hemoglobin (mass per erythrocyte) 29 pg 25-34 Automated erythrocyte mean corpuscular hemoglobin concentration measurement ( mass/volume) 35 g/dL 32-36 Automated erythrocyte distribution width ratio 13.0 % 10.0-14.5 Automated blood platelet count (count/volume) 282 10*3/uL 130-400 Automated blood platelet mean volume measurement 11.1 [foz_ us] 7.4-10.4 Automated blood neutrophils/100 leukocytes 63 % 42-75 Automated blood lymphocytes/100 leukocytes 28 % 12-44 Blood monocytes/100 leukocytes 5 % 0-12 Automated blood eosinophils/100 leukocytes 3 % 0-10 Automated blood basophils/100 leukocytes 1 % 0-10 Blood neutrophils automated count (number/volume) 7.6 10*3 1.8-7.8 Blood lymphocytes automated count (number/volume) 3.5 10*3 1.0-4.0 Blood monocytes automated count (number/volume) 0.7 10*3 0.0-1.0 Automated eosinophil count 0.4 10*3/uL 0.0-0.3 Automated blood basophil count (count/volume) 0.1 10*3/uL 0.0-0.1 Comprehensive metabolic panel - 03/08/17 16:05 Serum or plasma sodium measurement (moles/volume) 131 mmol/ L 135-145 Serum or plasma potassium measurement (moles/volume) 4.3 mmol/L 3.6-5.0 Serum or plasma chloride measurement (moles/volume) 99 mmol/ L 98-107 Carbon dioxide 20 mmol/L 21-32 Serum or plasma anion gap determination (moles/volume) 12 mmol/L 5-14 Serum or plasma urea nitrogen measurement (mass/volume) 19 mg/dL 7-18 Serum or plasma creatinine measurement (mass/volume) 1.42 mg /dL 0.60-1.30 Serum or plasma urea nitrogen/creatinine mass ratio 13 NRG Serum or plasma creatinine measurement with calculation of estimated glomerular filtration rate 38 NRG Serum or plasma glucose measurement (mass/volume) 701 mg/dL 70-105 Serum or plasma calcium measurement (mass/volume) 9.0 mg/dL 8.5-10.1 Serum or plasma total bilirubin measurement (mass/volume) 0.3 mg/dL 0.1-1.0 Serum or plasma alkaline phosphatase measurement (enzymatic activity/volume) 103 U/L 40-136 Serum or plasma aspartate aminotransferase measurement (enzymatic activity/ volume) 8 U/L 5-34 Serum or plasma alanine aminotransferase measurement (enzymatic activity/volume ) 9 U/L 0-55 Serum or plasma protein measurement (mass/volume) 7.2 g/dL 6.4-8.2 Serum or plasma albumin measurement (mass/volume) 4.0 g/dL 3.2-4.5 Magnesium - 03/08/17 16:05 Magnesium 2.1 mg/dL 1.8-2.4 Capillary blood glucose measurement by glucometer (mass/volume) - 03/08/17 18: 06 Capillary blood glucose measurement by glucometer (mass/volume) 449 mg/dL 70-110 Capillary blood glucose measurement by glucometer (mass/volume) - 03/08/17 18: 59 Capillary blood glucose measurement by glucometer (mass/volume) 338 mg/dL 70-110 Complete blood count (CBC) with automated white blood cell (WBC) differential - 03/14/17 15:14 Blood leukocytes automated count (number/volume) 10.9 10*3/ uL 4.3-11.0 Blood erythrocytes automated count (number/volume) 4.55 10*6 /uL 4.35-5.85 Venous blood hemoglobin measurement (mass/volume) 13.4 g/dL 11.5-16.0 Blood hematocrit (volume fraction) 39 % 35-52 Automated erythrocyte mean corpuscular volume 86 [foz_us] 80-99 Automated erythrocyte mean corpuscular hemoglobin (mass per erythrocyte) 30 pg 25-34 Automated erythrocyte mean corpuscular hemoglobin concentration measurement ( mass/volume) 34 g/dL 32-36 Automated erythrocyte distribution width ratio 13.0 % 10.0-14.5 Automated blood platelet count (count/volume) 282 10*3/uL 130-400 Automated blood platelet mean volume measurement 10.5 [foz_ us] 7.4-10.4 Automated blood neutrophils/100 leukocytes 61 % 42-75 Automated blood lymphocytes/100 leukocytes 31 % 12-44 Blood monocytes/100 leukocytes 5 % 0-12 Automated blood eosinophils/100 leukocytes 3 % 0-10 Automated blood basophils/100 leukocytes 1 % 0-10 Blood neutrophils automated count (number/volume) 6.7 10*3 1.8-7.8 Blood lymphocytes automated count (number/volume) 3.3 10*3 1.0-4.0 Blood monocytes automated count (number/volume) 0.5 10*3 0.0-1.0 Automated eosinophil count 0.4 10*3/uL 0.0-0.3 Automated blood basophil count (count/volume) 0.1 10*3/uL 0.0-0.1 PT panel in platelet poor plasma by coagulation assay - 03/14/17 15:14 Prothrombin time (PT) in platelet poor plasma by coagulation assay 11.6 s 12.2-14.7 INR in platelet poor plasma or blood by coagulation assay 0.9 0.8-1.4 Activated partial thromboplastin time (aPTT) in platelet poor plasma bycoagulation assay - 03/14/17 15:14 Activated partial thromboplastin time (aPTT) in platelet poor plasma bycoagulation assay 23 s 24-35 Comprehensive metabolic panel - 03/14/17 15:14 Serum or plasma sodium measurement (moles/volume) 136 mmol/ L 135-145 Serum or plasma potassium measurement (moles/volume) 4.2 mmol/L 3.6-5.0 Serum or plasma chloride measurement (moles/volume) 104 mmol /L 98-107 Carbon dioxide 17 mmol/L 21-32 Serum or plasma anion gap determination (moles/volume) 15 mmol/L 5-14 Serum or plasma urea nitrogen measurement (mass/volume) 15 mg/dL 7-18 Serum or plasma creatinine measurement (mass/volume) 1.20 mg /dL 0.60-1.30 Serum or plasma urea nitrogen/creatinine mass ratio 13 NRG Serum or plasma creatinine measurement with calculation of estimated glomerular filtration rate 46 NRG Serum or plasma glucose measurement (mass/volume) 481 mg/dL 70-105 Serum or plasma calcium measurement (mass/volume) 9.0 mg/dL 8.5-10.1 Serum or plasma total bilirubin measurement (mass/volume) 0.2 mg/dL 0.1-1.0 Serum or plasma alkaline phosphatase measurement (enzymatic activity/volume) 94 U/L 40-136 Serum or plasma aspartate aminotransferase measurement (enzymatic activity/ volume) 7 U/L 5-34 Serum or plasma alanine aminotransferase measurement (enzymatic activity/volume ) 8 U/L 0-55 Serum or plasma protein measurement (mass/volume) 6.9 g/dL 6.4-8.2 Serum or plasma albumin measurement (mass/volume) 3.9 g/dL 3.2-4.5 Magnesium - 03/14/17 15:14 Magnesium 2.0 mg/dL 1.8-2.4 Serum or plasma troponin i.cardiac measurement (mass/volume) - 03/14/17 15:14 Serum or plasma troponin i.cardiac measurement (mass/volume) < ng/mL <0.30 Myoglobin, serum - 03/14/17 15:14 Myoglobin, serum 20.2 ng/mL 10.0-92.0 Capillary blood glucose measurement by glucometer (mass/volume) - 03/14/17 16: 52 Capillary blood glucose measurement by glucometer (mass/volume) 269 mg/dL 70-110 Complete urinalysis with reflex to culture - 05/13/17 13:27 Urine color determination YELLOW NRG Urine clarity determination CLEAR NRG Urine pH measurement by test strip 5 5- 9 Specific gravity of urine by test strip 1.010 1.016-1.022 Urine protein assay by test strip, semi-quantitative 2+ NEGATIVE Urine glucose detection by automated test strip 4+ NEGATIVE Erythrocytes detection in urine sediment by light microscopy NEGATIVE NEGATIVE Urine ketones detection by automated test strip NEGATIVE NEGATIVE Urine nitrite detection by test strip NEGATIVE NEGATIVE Urine total bilirubin detection by test strip NEGATIVE NEGATIVE Urine urobilinogen measurement by automated test strip (mass/volume) NORMAL NORMAL Urine leukocyte esterase detection by dipstick NEGATIVE NEGATIVE Automated urine sediment erythrocyte count by microscopy (number/high power field) NONE NRG Automated urine sediment leukocyte count by microscopy (number/high power field ) [HPF] NRG Bacteria detection in urine sediment by light microscopy MODERATE NRG Squamous epithelial cells detection in urine sediment by light microscopy 0-2 NRG Crystals detection in urine sediment by light microscopy NONE NRG Casts detection in urine sediment by light microscopy NONE NRG Mucus detection in urine sediment by light microscopy NEGATIVE NRG Complete urinalysis with reflex to culture YES NRG Bacterial urine culture - 05/13/17 13:27 Bacterial urine culture [id number] NRG COLONY COUNT >100,000/ML NRG FTX;REPORTABLE SENSITIVITY REPORTED 05/15/17 9:00 NRG FREE TEXT ENTRY 2 PLUS, NRG FREE TEXT ENTRY 3 MIXED GRAM POSITIVES <10,000/ML NR Bacterial susceptibility panel - 05/13/17 13:27 Gentamicin susceptibility test by minimum inhibitory concentration <= NRG Trimethoprim/sulfamethoxazole susceptibility test by minimum inhibitoryconcentration <= NRG Ampicillin susceptibility test by minimum inhibitory concentration <= NRG Tobramycin susceptibility test by minimum inhibitory concentration <= NRG Cefazolin susceptibility test by minimum inhibitory concentration <= NRG Ceftriaxone susceptibility test by minimum inhibitory concentration <= NRG Ampicillin/sulbactam susceptibility test by minimum inhibitory concentration <= NRG Piperacillin/tazobactam susceptibility test by minimum inhibitory concentration <= NRG Ciprofloxacin susceptibility test by minimum inhibitory concentration <= NRG Meropenem susceptibility test by minimum inhibitory concentration <= NRG Nitrofurantoin susceptibility test by minimum inhibitory concentration <= NRG Aztreonam susceptibility test by minimum inhibitory concentration <= NRG Extended spectrum beta lactamase (ESBL) producing bacteria susceptibility test by minimum inhibitory concentration - NRG Complete blood count (CBC) with automated white blood cell (WBC) differential - 05/13/17 13:52 Blood leukocytes automated count (number/volume) 10.3 10*3/ uL 4.3-11.0 Blood erythrocytes automated count (number/volume) 4.31 10*6 /uL 4.35-5.85 Venous blood hemoglobin measurement (mass/volume) 12.7 g/dL 11.5-16.0 Blood hematocrit (volume fraction) 37 % 35-52 Automated erythrocyte mean corpuscular volume 87 [foz_us] 80-99 Automated erythrocyte mean corpuscular hemoglobin (mass per erythrocyte) 30 pg 25-34 Automated erythrocyte mean corpuscular hemoglobin concentration measurement ( mass/volume) 34 g/dL 32-36 Automated erythrocyte distribution width ratio 13.7 % 10.0-14.5 Automated blood platelet count (count/volume) 222 10*3/uL 130-400 Automated blood platelet mean volume measurement 10.5 [foz_ us] 7.4-10.4 Automated blood neutrophils/100 leukocytes 63 % 42-75 Automated blood lymphocytes/100 leukocytes 27 % 12-44 Blood monocytes/100 leukocytes 4 % 0-12 Automated blood eosinophils/100 leukocytes 5 % 0-10 Automated blood basophils/100 leukocytes 1 % 0-10 Blood neutrophils automated count (number/volume) 6.5 10*3 1.8-7.8 Blood lymphocytes automated count (number/volume) 2.8 10*3 1.0-4.0 Blood monocytes automated count (number/volume) 0.5 10*3 0.0-1.0 Automated eosinophil count 0.5 10*3/uL 0.0-0.3 Automated blood basophil count (count/volume) 0.1 10*3/uL 0.0-0.1 Comprehensive metabolic panel - 05/13/17 13:52 Serum or plasma sodium measurement (moles/volume) 128 mmol/ L 135-145 Serum or plasma potassium measurement (moles/volume) 4.6 mmol/L 3.6-5.0 Serum or plasma chloride measurement (moles/volume) 99 mmol/ L 98-107 Carbon dioxide 19 mmol/L 21-32 Serum or plasma anion gap determination (moles/volume) 10 mmol/L 5-14 Serum or plasma urea nitrogen measurement (mass/volume) 25 mg/dL 7-18 Serum or plasma creatinine measurement (mass/volume) 1.54 mg /dL 0.60-1.30 Serum or plasma urea nitrogen/creatinine mass ratio 16 0-20 Serum or plasma creatinine measurement with calculation of estimated glomerular filtration rate 35 NRG Serum or plasma glucose measurement (mass/volume) 782 mg/dL 70-105 Serum or plasma calcium measurement (mass/volume) 9.0 mg/dL 8.5-10.1 Serum or plasma total bilirubin measurement (mass/volume) 0.4 mg/dL 0.1-1.0 Serum or plasma alkaline phosphatase measurement (enzymatic activity/volume) 87 U/L 40-136 Serum or plasma aspartate aminotransferase measurement (enzymatic activity/ volume) 9 U/L 5-34 Serum or plasma alanine aminotransferase measurement (enzymatic activity/volume ) 9 U/L 0-55 Serum or plasma protein measurement (mass/volume) 6.8 g/dL 6.4-8.2 Serum or plasma albumin measurement (mass/volume) 3.7 g/dL 3.2-4.5 Capillary blood glucose measurement by glucometer (mass/volume) - 05/13/17 15: 18 Capillary blood glucose measurement by glucometer (mass/volume) > mg/dL 70-110 Capillary blood glucose measurement by glucometer (mass/volume) - 05/13/17 16: 01 Capillary blood glucose measurement by glucometer (mass/volume) > mg/dL 70-110 Capillary blood glucose measurement by glucometer (mass/volume) - 05/13/17 17: 18 Capillary blood glucose measurement by glucometer (mass/volume) 566 mg/dL 70-110 Encounters ACCT No. Visit Date/Time Discharge Status Pt. Type Provider Facility Loc./Unit Complaint [id number] 08/02/2014 10:44:00 08/02/2014 23: 59:59 CLS Outpatient STEFANY PACE APRN
== END 2017-05-13 17:35 | disposition home or self-care (01) ==
LOC: EDUNIT# 13:16 → ER 13:18
DX: N28.9 Disorder of kidney and ureter, unspecified (principal); E11.40 Type 2 diabetes mellitus with diabetic neuropathy, unspecified; F41.9 Anxiety disorder, unspecified; I25.10 Atherosclerotic heart disease of native coronary artery without angina pectoris; E78.00 Pure hypercholesterolemia, unspecified; I10 Essential (primary) hypertension; F17.210 Nicotine dependence, cigarettes, uncomplicated; Z86.718 Personal history of other venous thrombosis and embolism; Z79.4 Long term (current) use of insulin
CPT/HCPCS: 36415; 71020; 80053; 81000; 82962; 85025; 87088; 87186; 96361; 96374; 96375

== ENCOUNTER → 2017-06-29 | Outpatient (CLI) | payer MEDICARE ==
[~2017-06-29] VITALS: Ht 152.4 cm; Wt 79.5 kg
[2017-06-29] MEDS: CATHETER FLUSH 10 ML SYR IV PRN ×2 (09:59→10:00)
[2017-06-29 10:05] VITALS: BP 118/67
[2017-06-29 10:40] LABS: CHOLESTEROL 217 MG/DL (< 200); DIRECT LDL 142 MG/DL (1-129); TRIGLYCERIDES 340 MG/DL (<150); VLDL CHOLESTEROL 68 MG/DL (5-40)
== END ==
LOC: LAB 09:33
PROVIDERS: ATTEND Internal Medicine Endocrinology, Diabetes & Metabolism
DX: E11.65 Type 2 diabetes mellitus with hyperglycemia (principal)
CPT/HCPCS: 36415; 36591; 80061

== ENCOUNTER 2017-07-27 13:02 | Outpatient (RCR) | payer MEDICARE ==
[2017-06-28 13:05] VITALS: BP 137/73
[~2017-07-27] VITALS: Ht 152.4 cm; Wt 79.5 kg
[2017-07-27 12:59] VITALS: BP 125/69
[~2017-07-27 13:02] MED LIST changes: +HEParin (CENTRAL IV FLUSH) 500 UNIT/5 ML SYR ONE
[2017-07-27] MEDS ORDERED: HEParin (CENTRAL IV FLUSH) 500 UNIT/5 ML SYR IV ONE (13:15)
[2017-08-17] MEDS ORDERED: BENZ-13 PO (14:53)
== END 2017-08-21 | disposition home or self-care (01) ==
LOC: SDC 13:02
PROVIDERS: ATTEND Surgery
DX: I87.2 Venous insufficiency (chronic) (peripheral) (principal)
CPT/HCPCS: 96523

== ENCOUNTER → 2017-08-11 | Outpatient (CLI) | payer MEDICARE, OTHER ==
[~2017-08-11] MED LIST changes: +BENZ-36 PO; -BENZ100C23 PO; -HEParin (CENTRAL IV FLUSH) 500 UNIT/5 ML SYR ONE; +LIDO700A45 TP
--- NOTE | 2017-08-11 18:55 | Diagnostic Imaging Report ---
Ultrasound of the neck. INDICATION: Lump in the left side of the neck. FINDINGS: The area of the lump is scanned with portions of the parotid and submandibular glands seen with no definite abnormality noted. IMPRESSION: No definite abnormality. If symptoms persist, consider evaluation with CT scan of the neck. Dictated by: Dictated on workstation # [id number]
== END ==
LOC: RAD 14:35
PROVIDERS: ATTEND Nurse Practitioner Family
DX: R22.1 Localized swelling, mass and lump, neck (principal)
CPT/HCPCS: 76536

== ENCOUNTER 2017-08-17 08:46 | Emergency (ER) | payer MEDICARE, OTHER ==
[~2017-08-17] VITALS: Ht 152.4 cm; Wt 81.6 kg
[~2017-08-17 08:46] MED LIST changes: -LIDO700A45 TP
--- OUTSIDE RECORDS SUMMARY | 2017-08-17 08:59 | XMS REPORT ---
Author Author BURKSMARCELINO Rene Organization [facility] Address [address] [place] [address] Care Team Providers Care Entry Tech Name Role Phone MARCELINO BURKS Unavailable PROBLEMS Type Condition ICD9-CM Code [id number] Code Onset Dates Condition Status SNOMED Code Problem Chronic pain G89.29 Active 48750694 Problem DM neuro manif type II E11.49 Active 92894702 Problem Chronic pain syndrome G89.4 Active 123967182 Problem Primary insomnia F51.01 Active 6307650 Problem Hyperlipidemia E78.5 Active 81678591 Problem Diabetic mononeuropathy associated with type 2 diabetes mellitus E11.41 Active 961245158 Problem Degenerative disc disease, lumbar M51.36 Active 99902893 Problem Fibromyalgia M79.7 Active 77878801 Problem Pain in unspecified hip M25.559 Active 91072630 Problem Other chronic pain G89.29 Active 48689942 Problem Seasonal allergic rhinitis due to pollen J30.1 Active 25724392 Problem Dental caries K02.9 Active 64191446 Problem Type 2 diabetes mellitus without complication E11.9 Active 08589150 Problem Insomnia, unspecified G47.00 Active 408756023 Problem Cervicalgia M54.2 Active 6060395025472 Problem Lumbago M54.5 Active 433141499 Problem 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 I10 Active 54320568 Problem Tobacco abuse counseling Z71.6 Active 306709752 Problem Controlled substance agreement signed Z79.899 Active 735741983 Problem GERD (gastroesophageal reflux disease) K21.9 Active 010700164 Problem Tobacco abuse Z72.0 Active 80246523 Problem Alterations of sensations R20.9 Active 159530899 Problem retirement 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 Active 032163940 Problem CAD (coronary artery disease) I25.10 Active 64981985 ALLERGIES No Known Allergies SOCIAL HISTORY No smoking Hx information available PLAN OF CARE VITAL SIGNS MEDICATIONS No Known Medications RESULTS No Results PROCEDURES No Known procedures IMMUNIZATIONS No Known Immunizations
--- OUTSIDE RECORDS SUMMARY | 2017-08-17 09:00 | XMS REPORT ---
Author Author BURKSMARCELINO Rene Organization [facility] Address [address] [place] [address] Care Team Providers Care Animal Physiology Teacher Name Role Phone BURKSMARCELINO Rene Unavailable PROBLEMS Type Condition ICD9-CM Code KSD14-YE Code Onset Dates Condition Status SNOMED Code Problem Chronic pain G89.29 Active 79158065 Problem DM neuro manif type II E11.49 Active 31196959 Problem Chronic pain syndrome G89.4 Active 583761509 Problem Primary insomnia F51.01 Active 7541644 Problem Degenerative disc disease, lumbar M51.36 Active 17500621 Problem Diabetic mononeuropathy associated with type 2 diabetes mellitus E11.41 Active 638297285 Problem Hyperlipidemia E78.5 Active 00750594 Problem Type 2 diabetes mellitus without complication E11.9 Active 81682432 Problem Pain in unspecified hip M25.559 Active 35289157 Problem Dental caries K02.9 Active 45041302 Problem Seasonal allergic rhinitis due to pollen J30.1 Active 35276725 Problem Other chronic pain G89.29 Active 17959778 Problem Lumbago M54.5 Active 175474151 Problem Insomnia, unspecified G47.00 Active 532108432 Problem Fibromyalgia M79.7 Active 27558304 Problem Cervicalgia M54.2 Active 5412661130515 Problem assisted 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 Active 840991212 Problem Tobacco abuse counseling Z71.6 Active 795968684 Problem Controlled substance agreement signed Z79.899 Active 807140884 Problem GERD (gastroesophageal reflux disease) K21.9 Active 151450354 Problem Tobacco abuse Z72.0 Active 70340495 Problem Alterations of sensations R20.9 Active 172137462 Problem 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 I10 Active 54944969 Problem CAD (coronary artery disease) I25.10 Active 48502643 ALLERGIES Substance Reaction Event Type Date Status Zofran Unknown Drug Allergy Dec, Active Reglan restless leg; anything in reglan family Drug Allergy Dec, Active Toradol Unknown Drug Allergy Dec, Active LATEX Unknown Non Drug Allergy Dec, Active SOCIAL HISTORY Never Assessed PLAN OF CARE Activity Details Follow Up 3 Months Reason:[facility] VITAL SIGNS Height 60 in 2017-01-08 Weight 182.7 lbs 2017-01-08 Temperature 97.4 degrees Fahrenheit 2017-01-08 Heart Rate 80 bpm 2017-01-08 Respiratory Rate 18 2017-01-08 BMI 35.68 kg/m2 2017-01-08 Blood pressure systolic 132 mmHg 2017-01-08 Blood pressure diastolic 76 mmHg 2017-01-08 MEDICATIONS Medication Instructions Dosage Frequency Start Date End Date Duration Status Levemir FlexTouch 100 UNIT/ML INJECT 50 UNITS SUBCUTANEOUSLY TWICE DAILY Active Lipitor 20 mg Orally Once a day take 1 tablet by Oral route at bedtime 1 time per day 24h Active Humalog 100 UNIT/ML Active Tramadol HCl 50 mg Orally 3-4 times per day 2 tablets as needed Active Aspirin 81 MG Orally Once a day 1 tablet 24h Active Tradjenta 5 MG TAKE ONE TABLET BY MOUTH ONCE DAILY Active Prilosec 20 mg Orally Once a day 1 capsule 24h Active Breo Ellipta 100-25 MCG/INH Inhalation Once a day 1 puff 24h Active Ciprofloxacin HCl 500 MG Orally Twice a day 1 tablet 12h Dec, Dec, 05 days Active Gabapentin 600 MG Orally 3 times a day 1 tablet 8h Active Norvasc 5 MG TAKE 1 TABLET BY MOUTH ONCE A DAY Active RESULTS Name Result Date Reference Range CULTURE, URINE 2017-01-08 Urine Culture, Routine Final report Result 1 No growth UA LONG DIP (IN HOUSE) 2017-01-08 Lot # [id number] Exp date 12/22/2017 Clarity clear Color yellow Odor none GLU trace CLEO negative KET negative SG 1.020 BLO negative pH 5.0 Protein 1+ URO 0.2 NIT negativd JAZIEL trace Lot # Exp date PROCEDURES Procedure Date Ordered Result Body Site URINALYSIS, AUTO, W/O SCOPE Jan 08, 2017 [facility] VISIT ESTABLISHED PATIENT Jan 08, 2017 LAB NOT BILLED BY [facility] Jan 08, 2017 IMMUNIZATIONS No Known Immunizations MEDICAL (GENERAL) HISTORY Type Description Date Medical History hearing loss Medical History 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 Medical History acute renal failure Medical History hyperlipidemia Medical History type II diabetes Medical History Arthritis Medical History degenerative disease lumbosacral spine Medical History chronic pain r/t DDD Medical History fibromyalgia Medical History [place]-stent to LAD Surgical History cholecystectomy 1983 Surgical History myringotomy with ventilating tube as adult Surgical History laminectomy w/ discectomy x4 to L spine and x1 to C spine Surgical History Heart cath- clean 02/2016 Surgical History Placed port during hospital stay 11/2016 Hospitalization History Frequent admission for hyperglycemia/DKA Hospitalization History hyperglycemia 11/27/15 Hospitalization History hyperglycemia, cough 11/2016 Hospitalization History Chest Pain 12/2016
[2017-08-17] MEDS ORDERED: PROMETHAZINE INJ 25 MG/ML (PHENERGAN) AMP IVP STA (10:14)
--- NOTE | 2017-08-17 10:44 | ED Cough/URI ---
General Chief Complaint: Cough/Cold/Flu Symptoms Stated Complaint: BLOOD SUGAR HIGH, N/V/D, COUGH, CHEST DISCOMFORT Nursing Triage Note: ADM TO ED WITH C/O COUGH CONGESTION FOR 1 WEEK. WAS SEEN AT [facility] ON WEDNESDAY STARTED ON AUGMENTIN NOT ANY BETTER. REPORTS THAT HER BLOOD SUGAR HAS BEEN HIGH. HAS A 10A APPOINTMENT WITH DR JORGE MALONE. Source: patient Exam Limitations: no limitations History of Present Illness Time seen by provider: 10:30 Initial Comments Here with report of persistent cough for the last week. She was started on Augmentin and has not gotten better. She reports that her blood sugars are out of whack. She is coughing to the point of vomiting. Reports that her blood sugars are too high to read on her metered. She does report taking her meds as directed. She was due to have appointment with Dr. Bright today but was so sick that she could not make it and elected to come here instead. She is worried about her glucose overall. Timing/Duration: week, getting worse Severity/Quality: productive cough Prior Episodes/Possible Cause: occasional episodes Modifying Factors: Worse With Activity, Worse With Coughing, Improves With Rest Associated Symptoms: chest pain/soreness (right lower posterior rib margin), cough, nasal congestion, shortness of breath, wheezing Allergies and Home Medications Allergies Coded Allergies: ketorolac (Verified Allergy, Severe, ANAPHYLAXIS, PT TAKES ASA AT HOME, ) ondansetron (Verified Allergy, Intermediate, RASH, 07/19/14) RASH/ HIVES exenatide (Verified Allergy, Unknown, NAUSEA, 07/19/14) NON STOP VOMITING latex (Verified Allergy, Unknown, RASH, 07/19/14) metoclopramide (Verified Allergy, Unknown, RESTLESS LEGS, 07/19/14) Home Medications Amlodipine Besylate 5 Mg Tablet, 5 MG PO DAILY, (Reported) Aspirin 81 Mg Tablet.dr, 81 MG PO DAILY, (Reported) Atorvastatin Calcium 20 Mg Tablet, 20 MG PO HS, (Reported) Fluticasone/Vilanterol 1 Each Blst.w.dev, 1 PUFF IH DAILY, (Reported) Gabapentin 300 Mg Capsule, 600 MG PO TID, (Reported) TAKES 2 (300 MG) CAPSULES Ibuprofen 200 Mg Tablet, 400 MG PO TID, #30 Prescribed by: AZEEM MELVIN on 12/30/16 1019 Insulin Detemir 100 Unit/1 Ml Insuln.pen, 50 UNITS SQ BID, (Reported) Insulin Lispro 100 Unit/1 Ml Insuln.pen, 0 SQ AC, (Reported) PER SLIDING SCALE 1 UNIT PER 3 CARBOHYDRATES 1 UNIT FOR EVERY 15 > 150 Omeprazole 20 Mg Capsule.dr, 20 MG PO DAILY, (Reported) Oxycodone HCl/Acetaminophen 1 Each Tablet, 2 TAB PO QID PRN for PAIN-MILD TO MODERATE, (Reported) Promethazine HCl 25 Mg Supp.rect, 25 MG RC Q6H PRN for NAUSEA/VOMITING-1ST LINE , #10 Prescribed by: WARD BEE on 03/08/17 1813 Constitutional: see HPI, No chills, No fever EENTM: no symptoms reported Respiratory: see HPI, cough, short of breath, wheezing Cardiovascular: see HPI Gastrointestinal: No abdominal pain, No nausea, vomiting Genitourinary: no symptoms reported Musculoskeletal: no symptoms reported All Other Systems Reviewed Negative Unless Noted: Yes Past Pgvwxsp-Hdodbu-Zilxwy Hx Patient Social History Alcohol Use: Occasionally Uses Recreational Drug Use: No Smoking Status: Current Everyday Smoker Type Used: Cigarettes Former Smoker, Quit: Sep 22, 2016 2nd Hand Smoke Exposure: No Recent Foreign Travel: No Contact w/Someone Who Travel: No Recent Infectious Disease Expo: No Recent Hopitalizations: No Immunizations Up To Date Tetanus Booster (TDap): Less than 5yrs PED Vaccines UTD: No Date of Pneumonia Vaccine: Dec 12, 2013 Date of Influenza Vaccine: Nov 23, 2016 Seasonal Allergies Seasonal Allergies: No Surgeries History of Surgeries: Yes Surgeries: Cardiac, Coronary Stent, Ear Surgery, Gallbladder, Orthopedic, Renal Respiratory History of Respiratory Disorde: Yes Respiratory Disorders: Chronic Bronchitis Currently Using CPAP: No Currently Using BIPAP: No Cardiovascular History of Cardiac Disorders: Yes (CARDIAC STENTS) Cardiac Disorders: Chronic Edema/Swelling, Coronary Artery Disease, Deep Vein Thrombosis, High Cholesterol, Hypertension Neurological History of Neurological Disord: Yes (NEUROPATHY IN HANDS AND FEET) Neurological Disorders: Headaches /Migraines, Neuropathy 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 System : No Hx 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 Disorders: No Sexually Transmitted Disease: No HIV/AIDS: No 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 Disorders: Denies 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 Genitourinary History of Genitourinary Disor: Yes Genitourinary Disorders: Bladder Infection, Kidney Stones, Renal Failure Gastrointestinal History of Gastrointestinal Di: Yes Gastrointestinal Disorders: Gastroesophageal Reflux, Chronic Constipation Musculoskeletal History of Musculoskeletal Dis: Yes (CHRONIC NECK PAIN, PSORIATIC ARTHRITIS ) Musculoskeletal Disorders: Degenerate Disk Disease, Chronic Back Pain Endocrine History of Endocrine Disorders: Yes Endocrine Disorders: Diabetes, Insulin dep HEENT History of HEENT Disorders: Yes HEENT Disorders: Chronic Ear Infection Loss of Vision: Denies Hearing Impairment: Hard of Hearing Cancer History of Cancer: No Psychosocial History of Psychiatric Problem: Yes Behavioral Health Disorders: Anxiety Integumentary History of Skin or Integumenta: No Skin/Integumentary Disorders: Psoriasis Blood Transfusions History of Blood Disorders: No Adverse Reaction to a Blood Tr: No Reviewed Nursing Assessment Reviewed/Agree w Nursing PMH: Yes Family Medical History Significant Family History: No Pertinent Family Hx Family Medial History: Cancer of mouth 19 FATHER ( of esophogeal cancer.) Cardiovascular disease 19 MOTHER G8 BROTHER Completed stroke 19 FATHER G8 BROTHER Diabetes mellitus G8 BROTHER FH: lung cancer 19 MOTHER Hypertension 19 FATHER Kidney disease 19 FATHER Myocardial infarction 19 MOTHER G8 BROTHER Respiratory disorder Physical Exam Vital Signs Vital Sign - Last 12Hours 08/17/17 08:51 Temp 98.4 Pulse 78 Resp 18 B/P (MAP) 122/60 Pulse Ox 95 O2 Delivery Room Air Capillary Refill : Less Than 3 Seconds General Appearance: WD/WN, mild distress (coughing) HEENT: PERRL/EOMI, pharynx normal Neck: full range of motion, supple Respiratory: no accessory muscle use, crackles, wheezing, expiration Cardiovascular: regular rate, rhythm, no murmur Gastrointestinal: non tender, soft Extremities: non-tender, normal inspection Neurologic/Psychiatric: alert, oriented x 3 Skin: normal color, warm/dry Progress/Results/Core Measures Results/Orders Lab Results Laboratory Tests Test 08/17/17 10:15 08/17/17 12:45 Range/Units White Blood Count 13.4 H 4.3-11.0 10^3/uL Red Blood Count 4.75 4.35-5.85 10^6/uL Hemoglobin 14.5 11.5-16.0 G/DL Hematocrit 42 35-52 % Mean Corpuscular Volume 88 80-99 FL Mean Corpuscular Hemoglobin 31 25-34 PG Mean Corpuscular Hemoglobin Concent 35 32-36 G/DL Red Cell Distribution Width 12.7 10.0-14.5 % Platelet Count 284 130-400 10^3/uL Mean Platelet Volume 11.2 H 7.4-10.4 FL Neutrophils (%) (Auto) 69 42-75 % Lymphocytes (%) (Auto) 23 12-44 % Monocytes (%) (Auto) 6 0-12 % Eosinophils (%) (Auto) 1 0-10 % Basophils (%) (Auto) 1 0-10 % Neutrophils # (Auto) 9.3 H 1.8-7.8 X 10^3 Lymphocytes # (Auto) 3.1 1.0-4.0 X 10^3 Monocytes # (Auto) 0.7 0.0-1.0 X 10^3 Eosinophils # (Auto) 0.2 0.0-0.3 10^3/uL Basophils # (Auto) 0.1 0.0-0.1 10^3/uL Sodium Level 133 L 135-145 MMOL/L Potassium Level 4.5 3.6-5.0 MMOL/L Chloride Level 99 98-107 MMOL/L Carbon Dioxide Level 20 L 21-32 MMOL/L Anion Gap 14 5-14 MMOL/L Blood Urea Nitrogen 19 H 7-18 MG/DL Creatinine 1.34 H 0.60-1.30 MG/DL Estimat Glomerular Filtration Rate 41 BUN/Creatinine Ratio 14 Glucose Level 701 *H 70-105 MG/DL Calcium Level 10.1 8.5-10.1 MG/DL Phosphorus Level 4.0 2.3-4.7 MG/DL Magnesium Level 2.0 1.8-2.4 MG/DL Total Bilirubin 0.9 0.1-1.0 MG/DL Aspartate Amino Transf (AST/SGOT) 8 5-34 U/L Alanine Aminotransferase (ALT/SGPT) 11 0-55 U/L Alkaline Phosphatase 112 40-136 U/L Total Protein 7.9 6.4-8.2 GM/DL Albumin 4.1 3.2-4.5 GM/DL Urine Color YELLOW Urine Clarity CLEAR Urine pH 6 5-9 Urine Specific [place] 1.010 L 1.016-1.022 Urine Protein 3+ H NEGATIVE Urine Glucose (UA) 4+ H NEGATIVE Urine Ketones NEGATIVE NEGATIVE Urine Nitrite NEGATIVE NEGATIVE Urine Bilirubin NEGATIVE NEGATIVE Urine Urobilinogen NORMAL NORMAL MG/DL Urine Leukocyte Esterase NEGATIVE NEGATIVE Urine RBC (Auto) NEGATIVE NEGATIVE Urine RBC NONE /HPF Urine WBC NONE /HPF Urine Squamous Epithelial Cells 0-2 /HPF Urine Crystals NONE /LPF Urine Bacteria NEGATIVE /HPF Urine Casts NONE /LPF Urine Mucus NEGATIVE /LPF Urine Culture Indicated NO My Orders Orders - VALENTIN YANES MD Cbc With Automated Diff (08/17/17 09:54) Comprehensive Metabolic Panel (08/17/17 09:54) Saline Lock/Iv-Start (08/17/17 09:54) Chest Pa/Lat (2 View) (08/17/17 09:54) Promethazine Injection (Phenergan Injec (08/17/17 10:14) Albuterol/Ipra Inhalation Soln (Duoneb I (08/17/17 10:45) Svn Sm Volume Nebulizer Rt-Rfs (08/17/17 10:41) Diphenhydramine Injection (Benadryl Inje (08/17/17 10:45) Ns Iv 1000 Ml (Sodium Chloride 0.9%) (08/17/17 10:50) Insulin (Regular) Human (Humulin R (Per (08/17/17 10:50) Magnesium (08/17/17 10:50) Ua Culture If Indicated (08/17/17 10:50) Phosphorus (08/17/17 10:50) Albuterol Pre-Mix Nebs (Rt) (Proventil P (08/17/17 11:05) Svn Sm Volume Nebulizer Rt-Rfs (08/17/17 11:05) Promethazine/ Codeine Syrup (Phenergan W (08/17/17 12:30) Insulin (Regular) Human (Humulin R (Per (08/17/17 12:48) Medications Given in ED Current Medications Medications Dose Ordered Sig/Jackie Route Start Time Stop Time Status Last Admin Dose Admin Albuterol/ Ipratropium 3 ml ONCE ONCE INH 08/17/17 10:45 08/17/17 10:46 DC 08/17/17 10:54 3 ML Diphenhydramine HCl 25 mg ONCE ONCE IVP 08/17/17 10:45 08/17/17 10:46 DC 08/17/17 11:10 25 MG Promethazine HCl/ Codeine 5 ml ONCE ONCE PO 08/17/17 12:30 08/17/17 12:31 DC 08/17/17 12:32 5 ML Sodium Chloride 1,000 ml @ 0 mls/hr Q0M ONCE IV 08/17/17 10:50 08/17/17 10:52 DC 08/17/17 11:10 1,000 MLS/HR Vital Signs/I&O Vital Sign - Last 12Hours 08/17/17 08/17/17 08/17/17 08:51 10:54 11:09 Temp 98.4 Pulse 78 Resp 18 B/P (MAP) 122/60 Pulse Ox 95 92 96 O2 Delivery Room Air Room Air Room Air Intake and Output 08/18/17 00:00 Intake Total 1000 ml Balance 1000 ml Blood Pressure Mean: 80 Progress Note : Progress Note Seen and evaluated. IV via port access. Labs and chest x-ray ordered. Phenergan 25 mg IV and Benadryl 25 mg IV due to persistent nausea and cough. Glucose noted to be significantly elevated. Insulin 10 units IV and normal saline 1 L bolus ordered. UA ordered and additional labs added. Monitor patient. 1325: Labs reviewed. Patient is improving. No significant findings other than glucose elevated. I did discuss the case with Dr. Reena Soliz, on- call for [facility]. She will assist with setting up outpatient appointment and having night patrol inspector call her for further instructions related to her insulin dosing. 1430: Patient requested pain medicine as she is missing her home dose. Percocet 10 mg by mouth given. 1445: Discharge home with return precautions. Patient verbalize understanding instructions and agreement with plan. Diagnostic Imaging Diagonstic Imaging: Xray Plain Films/CT/US/NM/MRI: chest Comments VIA [facility]. [place], [place] NAME: VALENTE [facility] REC#: [id number] PT STATUS: REG ER : 1960 PHYSICIAN: VALENTIN YANES MD ADMIT DATE: 08/17/17/ER Draft Date of Exam:08/17/17 CHEST PA/LAT (2 VIEW) INDICATION: Cough. Febrile. COMPARISON: 05/11/2017 FINDINGS: Frontal and lateral views of the chest demonstrate normal heart size and pulmonary vascularity. The lungs are clear. There are no signs of infiltrate, pleural effusions or pneumothoraces. The visualized osseous structures show no acute abnormalities. Right-sided internal jugular Port-A-Cath is again identified and is in stable position. IMPRESSION: 1. No acute process. No signs of infiltrates, effusions or pneumothoraces. Dictated on workstation # [id number] Dict: 08/17/17 1054 Trans: 08/17/17 1056 [id number] Interpreted by: CRISTIN GARCIA MD Electronically signed by: Departure Impression Impression: Primary Impression: Acute bronchitis Qualified Codes: J20.9 - Acute bronchitis, unspecified Additional Impression: Uncontrolled diabetes mellitus Qualified Codes: E13.65 - Other specified diabetes mellitus with hyperglycemia ; Z79.4 - buttermaker continuous churn (current) use of insulin Disposition: HOME, SELF-CARE Condition: Stable Departure-Patient Inst. Decision time for Depature: 14:50 Referrals: WINDY GRIFFIN DO (PCP) Primary Care Physician MARCELINO BURKS APRN (Family) Primary Care Physician Patient Instructions: Acute Bronchitis, Adult (DC), Hyperglycemia, Adult (DC) Add. Discharge Instructions: All discharge instructions reviewed with patient and/or family. Voiced understanding. Continue medications as directed. Follow-up with your Dr. in a few days for recheck. They should call you today for further instructions related to your insulin dosing. If you've not heard from them when he home, call them and discuss this with them. You should also seek follow-up appointment within the next few days. Return for worse pain, fever, vomiting, weakness, breathing problems or other concerns as needed. Scripts Benzonatate (Tessalon Perle) 100 Mg Capsule 200 MG PO Q8H, #30 CAP 0 Refills Prov: VALENTIN YANES MD 08/17/17 VALENTIN YANES MD Aug 17, 2017 10:44
[2017-08-17] MEDS ORDERED: RT-ALBUTEROL/IPRATROPIUM 3 ML (DUONEB) VIAL INH ONE (10:45)
[2017-08-17] MEDS ORDERED: diphenhydrAMINE 50 MG/ML INJ (BENADRYL) IVP ONE (10:45)
[2017-08-17 10:47] LABS: ALBUMIN 4.1 GM/DL (3.2-4.5); BILIRUBIN,TOTAL 0.9 MG/DL (0.1-1.0); CALCIUM 10.1 MG/DL (8.5-10.1); CREATININE SERUM 1.34 MG/DL (0.60-1.30); POTASSIUM 4.5 MMOL/L (3.6-5.0); TOTAL PROTEIN 7.9 GM/DL (6.4-8.2)
[2017-08-17] MEDS ORDERED: NS IV 1000 ML 1,000 ML IV ONE (10:50)
[2017-08-17] MEDS ORDERED: inSUlin (REGULAR) HUMAN 1 UNIT/0.01 ML (CHARGE PER UNIT) IV STA ×2 (10:50→12:48)
[2017-08-17 10:53] LABS: BASOPHILS # (AUTO) 0.1 10^3/uL (0.0-0.1); BASOPHILS % (AUTO) 1 % (0-10); EOSINOPHILS # (AUTO) 0.2 10^3/uL (0.0-0.3); EOSINOPHILS % (AUTO) 1 % (0-10); LYMPHOCYTES # (AUTO) 3.1 X 10^3 (1.0-4.0); LYMPHOCYTES % (AUTO) 23 % (12-44); MEAN CORPUSCULAR HEMOGLOBIN 31 PG (25-34); MEAN CORPUSCULAR HGB CONC 35 G/DL (32-36); MEAN CORPUSCULAR VOLUME 88 FL (80-99); MEAN PLATELET VOLUME 11.2 FL (7.4-10.4); MONOCYTES # (AUTO) 0.7 X 10^3 (0.0-1.0); MONOCYTES % (AUTO) 6 % (0-12); NEUTROPHILS # (AUTO) 9.3 X 10^3 (1.8-7.8); NEUTROPHILS % (AUTO) 69 % (42-75); PLATELET COUNT 284 10^3/uL (130-400); RED BLOOD COUNT 4.75 10^6/uL (4.35-5.85); RED CELL DISTRIBUTION WIDTH 12.7 % (10.0-14.5); WHITE BLOOD COUNT 13.4 10^3/uL (4.3-11.0)
--- NOTE | 2017-08-17 10:57 | Diagnostic Imaging Report ---
INDICATION: Cough. Febrile. COMPARISON: 05/11/2017 FINDINGS: Frontal and lateral views of the chest demonstrate normal heart size and pulmonary vascularity. The lungs are clear. There are no signs of infiltrate, pleural effusions or pneumothoraces. The visualized osseous structures show no acute abnormalities. Right-sided internal jugular Port-A-Cath is again identified and is in stable position. IMPRESSION: 1. No acute process. No signs of infiltrates, effusions or pneumothoraces. Dictated by: Dictated on workstation # [id number]
[2017-08-17] MEDS ORDERED: RT-ALBUTEROL SULF 2.5 MG/3 ML PRE-MIX VIAL INH STA (11:05)
[2017-08-17] MEDS ORDERED: PROMETHAZINE/ CODEINE SYRUP 5 ML UDC PO ONE (12:30)
[2017-08-17 12:53] LABS: BILIRUBIN,URINE NEGATIVE (NEGATIVE); KETONES,URINE NEGATIVE (NEGATIVE); LEUKOCYTE ESTERASE ,URINE NEGATIVE (NEGATIVE); NITRITE,URINE NEGATIVE (NEGATIVE); PH,URINE 6 (5-9); PROTEIN,URINE 3+ (NEGATIVE); UROBILINOGEN,URINE NORMAL (NORMAL)
[2017-08-17 13:05] LABS: SQUAMOUS EPITHELIAL CELL,UR 0-2 /HPF
[2017-08-17] MEDS ORDERED: oxyCODONE/APAP 5/325MG (PERCOCET 5) TABLET PO STA (14:46)
[2017-08-17] MEDS ORDERED: BENZ-13 PO (14:53)
[2017-08-17 15:17] VITALS: BP 115/48
== END 2017-08-17 15:17 | disposition home or self-care (01) ==
LOC: EDUNIT# 08:46 → ER 08:50
DX: J20.9 Acute bronchitis, unspecified (principal); E11.65 Type 2 diabetes mellitus with hyperglycemia; E11.40 Type 2 diabetes mellitus with diabetic neuropathy, unspecified; I25.10 Atherosclerotic heart disease of native coronary artery without angina pectoris; E78.00 Pure hypercholesterolemia, unspecified; I10 Essential (primary) hypertension; K21.9 Gastro-esophageal reflux disease without esophagitis; F41.9 Anxiety disorder, unspecified; G43.909 Migraine, unspecified, not intractable, without status migrainosus; F17.210 Nicotine dependence, cigarettes, uncomplicated; Z87.09 Personal history of other diseases of the respiratory system; Z82.49 Family history of ischemic heart disease and other diseases of the circulatory system; Z80.1 Family history of malignant neoplasm of trachea, bronchus and lung; Z87.442 Personal history of urinary calculi; Z86.718 Personal history of other venous thrombosis and embolism; Z95.5 Presence of coronary angioplasty implant and graft; Z79.82 Long term (current) use of aspirin; Z79.4 Long term (current) use of insulin
CPT/HCPCS: 36415; 71020; 80053; 81000; 82962; 83735; 84100; 85025; 94640; 96361; 96374; 96375; 96376

== ENCOUNTER → 2017-09-07 | Outpatient (CLI) | payer MEDICARE, OTHER ==
[~2017-09-07] MED LIST changes: -BENZ-36 PO; +BENZ100C23 PO
== END ==
LOC: CARD 13:28
PROVIDERS: ATTEND Internal Medicine Cardiovascular Disease
DX: G47.33 Obstructive sleep apnea (adult) (pediatric) (principal); I25.10 Atherosclerotic heart disease of native coronary artery without angina pectoris; I65.23 Occlusion and stenosis of bilateral carotid arteries; Z72.0 Tobacco use; R06.02 Shortness of breath
CPT/HCPCS: 93306

== ENCOUNTER 2017-10-20 10:26 | Emergency (ER) | payer MEDICARE ==
[~2017-10-20] VITALS: Ht 152.4 cm; Wt 79.4 kg
[~2017-10-20 10:26] MED LIST changes: +BENZ-36 PO; -BENZ100C23 PO
--- OUTSIDE RECORDS SUMMARY | 2017-10-20 10:39 | XMS REPORT ---
Author Author LINH WILSON Organization [facility] Address [address] [place] [address] Care Team Providers Care Sander Portable Machine Name Role Phone LINH WILSON Unavailable PROBLEMS Type Condition ICD9-CM Code QYK19-ZT Code Onset Dates Condition Status SNOMED Code Problem Chronic pain G89.29 Active 98476185 Problem DM neuro manif type II E11.49 Active 38427095 Problem Chronic pain syndrome G89.4 Active 439775736 Problem Primary insomnia F51.01 Active 4926848 Problem Degenerative disc disease, lumbar M51.36 Active 57168463 Problem Diabetic mononeuropathy associated with type 2 diabetes mellitus E11.41 Active 361913670 Problem Hyperlipidemia E78.5 Active 93315931 Problem Type 2 diabetes mellitus without complication E11.9 Active 07327467 Problem Pain in unspecified hip M25.559 Active 03768093 Problem Dental caries K02.9 Active 15204041 Problem Seasonal allergic rhinitis due to pollen J30.1 Active 26654949 Problem Other chronic pain G89.29 Active 67296644 Problem Lumbago M54.5 Active 223158505 Problem Insomnia, unspecified G47.00 Active 646305224 Problem Fibromyalgia M79.7 Active 76056593 Problem Cervicalgia M54.2 Active 6445262788952 Problem snf 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 Active 184063266 Problem Tobacco abuse counseling Z71.6 Active 700867882 Problem Controlled substance agreement signed Z79.899 Active 484678822 Problem GERD (gastroesophageal reflux disease) K21.9 Active 654877423 Problem Tobacco abuse Z72.0 Active 72758772 Problem Alterations of sensations R20.9 Active 234219195 Problem 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 I10 Active 15659707 Problem CAD (coronary artery disease) I25.10 Active 52300969 ALLERGIES Substance Reaction Event Type Date Status Zofran Unknown Drug Allergy Jan, Active Reglan restless leg; anything in reglan family Drug Allergy Jan, Active Toradol Unknown Drug Allergy Jan, Active LATEX Unknown Non Drug Allergy Jan, Active SOCIAL HISTORY Never Assessed PLAN OF CARE Activity Details Follow Up prn Reason: VITAL SIGNS Height 60 in 2017-02-08 Weight 176.8 lbs 2017-02-08 Temperature 99.4 degrees Fahrenheit 2017-02-08 Heart Rate 80 bpm 2017-02-08 Respiratory Rate 20 2017-02-08 BMI 34.53 kg/m2 2017-02-08 Blood pressure systolic 122 mmHg 2017-02-08 Blood pressure diastolic 68 mmHg 2017-02-08 MEDICATIONS Medication Instructions Dosage Frequency Start Date End Date Duration Status Levemir FlexTouch 100 UNIT/ML INJECT 50 UNITS SUBCUTANEOUSLY TWICE DAILY Active Aspirin 81 MG Orally Once a day 1 tablet 24h Active Breo Ellipta 100-25 MCG/INH Inhalation Once a day 1 puff 24h Active Prilosec 20 mg Orally Once a day 1 capsule 24h Active Ofloxacin 0.3 % Otic Once a day 10 drops into affected ear 24h Jan, Jan, 7 day(s) Active Humalog 100 UNIT/ML Active Norvasc 5 MG TAKE 1 TABLET BY MOUTH ONCE A DAY Active Gabapentin 600 MG Orally 3 times a day 1 tablet 8h Active Tradjenta 5 MG TAKE ONE TABLET BY MOUTH ONCE DAILY Active Tramadol HCl 50 mg Orally 3-4 times per day 2 tablets as needed Active Lipitor 20 mg Orally Once a day take 1 tablet by Oral route at bedtime 1 time per day 24h Active RESULTS No Results PROCEDURES Procedure Date Ordered Result Body Site [facility] VISIT ESTABLISHED PATIENT February 08, 2017 IMMUNIZATIONS No Known Immunizations MEDICAL (GENERAL) HISTORY Type Description Date Medical History hearing loss Medical History 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 Medical History acute renal failure Medical History hyperlipidemia Medical History type II diabetes Medical History Arthritis Medical History degenerative disease lumbosacral spine Medical History chronic pain r/t DDD Medical History fibromyalgia Medical History [place]-stent to LAD Surgical History cholecystectomy 1984 Surgical History myringotomy with ventilating tube as adult Surgical History laminectomy w/ discectomy x4 to L spine and x1 to C spine Surgical History Heart cath- clean 02/2016 Surgical History Placed port during hospital stay 11/2016 Hospitalization History Frequent admission for hyperglycemia/DKA Hospitalization History hyperglycemia 11/27/15 Hospitalization History hyperglycemia, cough 11/2016 Hospitalization History Chest Pain 12/2016
[2017-10-20] MEDS ORDERED: LIDO700A45 TP (10:45)
--- NOTE | 2017-10-20 10:45 | ED Lower Extremity ---
General Chief Complaint: Lower Extremity Stated Complaint: BACK PAIN,RIGHT LEG PAIN Source: patient Exam Limitations: no limitations History of Present Illness Time seen by provider: 10:40 Initial Comments To ER with a burning stabbing sensation over the right sacroiliac joint that radiates down the lateral aspect of the right leg terminating in the right thigh. No known injury. She takes Percocet 10 325 for chronic pain that is not helping with this pain. She cannot take steroids because of her diabetes. She states she is already on diclofenac and cannot take any additional anti- inflammatories. She states she cannot take muscle relaxers because they make her legs restless. She would like a shot of pain medication. Onset: yesterday Severity: moderate Pain/Injury Location: right leg Modifying Factors: Worse With Movement Allergies and Home Medications Allergies Coded Allergies: ketorolac (Verified Allergy, Severe, ANAPHYLAXIS, PT TAKES ASA AT HOME, ) ondansetron (Verified Allergy, Intermediate, RASH, 07/19/14) RASH/ HIVES exenatide (Verified Allergy, Unknown, NAUSEA, 07/19/14) NON STOP VOMITING latex (Verified Allergy, Unknown, RASH, 07/19/14) metoclopramide (Verified Allergy, Unknown, RESTLESS LEGS, 07/19/14) Home Medications Amlodipine Besylate 5 Mg Tablet, 5 MG PO DAILY, (Reported) Aspirin 81 Mg Tablet.dr, 81 MG PO DAILY, (Reported) Atorvastatin Calcium 20 Mg Tablet, 20 MG PO HS, (Reported) Benzonatate 100 Mg Capsule, 200 MG PO Q8H, #30 Ref 0 Prescribed by: VALENTIN YANES on 08/17/17 1453 Fluticasone/Vilanterol 1 Each Blst.w.dev, 1 PUFF IH DAILY, (Reported) Gabapentin 300 Mg Capsule, 600 MG PO TID, (Reported) TAKES 2 (300 MG) CAPSULES Ibuprofen 200 Mg Tablet, 400 MG PO TID, #30 Prescribed by: AZEEM MELVIN on 12/30/16 1019 Insulin Detemir 100 Unit/1 Ml Insuln.pen, 50 UNITS SQ BID, (Reported) Insulin Lispro 100 Unit/1 Ml Insuln.pen, 0 SQ AC, (Reported) PER SLIDING SCALE 1 UNIT PER 3 CARBOHYDRATES 1 UNIT FOR EVERY 15 > 150 Omeprazole 20 Mg Capsule.dr, 20 MG PO DAILY, (Reported) Oxycodone HCl/Acetaminophen 1 Each Tablet, 2 TAB PO QID PRN for PAIN-MILD TO MODERATE, (Reported) Promethazine HCl 25 Mg Supp.rect, 25 MG RC Q6H PRN for NAUSEA/VOMITING-1ST LINE , #10 Prescribed by: WARD BEE on 03/08/17 1813 Constitutional: see HPI EENTM: see HPI Respiratory: no symptoms reported Cardiovascular: no symptoms reported Genitourinary: no symptoms reported Musculoskeletal: see HPI Skin: no symptoms reported Psychiatric/Neurological: No Symptoms Reported Past Vlagxap-Ltjqci-Wqmmkg Hx Patient Social History Type Used: Cigarettes Former Smoker, Quit: Sep 22, 2016 2nd Hand Smoke Exposure: No Recent Foreign Travel: No Contact w/Someone Who Travel: No Recent Hopitalizations: No Immunizations Up To Date Tetanus Booster (TDap): Less than 5yrs PED Vaccines UTD: No Date of Pneumonia Vaccine: Dec 12, 2013 Date of Influenza Vaccine: Nov 23, 2016 Seasonal Allergies Seasonal Allergies: No Surgeries History of Surgeries: Yes Surgeries: Cardiac, Coronary Stent, Ear Surgery, Gallbladder, Orthopedic, Renal Respiratory History of Respiratory Disorde: Yes Respiratory Disorders: Chronic Bronchitis Currently Using CPAP: No Currently Using BIPAP: No Cardiovascular History of Cardiac Disorders: Yes (CARDIAC STENTS) Cardiac Disorders: Chronic Edema/Swelling, Coronary Artery Disease, Deep Vein Thrombosis, High Cholesterol, Hypertension Neurological History of Neurological Disord: Yes (NEUROPATHY IN HANDS AND FEET) Neurological Disorders: Headaches /Migraines, Neuropathy 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 System Hx 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 Disorders: No Sexually Transmitted Disease: No HIV/AIDS: No 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 Disorders: Denies 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 Genitourinary History of Genitourinary Disor: Yes Genitourinary Disorders: Bladder Infection, Kidney Stones, Renal Failure Gastrointestinal History of Gastrointestinal Di: Yes Gastrointestinal Disorders: Gastroesophageal Reflux, Chronic Constipation Musculoskeletal History of Musculoskeletal Dis: Yes (CHRONIC NECK PAIN, PSORIATIC ARTHRITIS ) Musculoskeletal Disorders: Degenerate Disk Disease, Chronic Back Pain Endocrine History of Endocrine Disorders: Yes Endocrine Disorders: Diabetes, Insulin dep HEENT History of HEENT Disorders: Yes HEENT Disorders: Chronic Ear Infection Loss of Vision: Denies Hearing Impairment: Hard of Hearing Cancer History of Cancer: No Psychosocial History of Psychiatric Problem: Yes Behavioral Health Disorders: Anxiety Integumentary History of Skin or Integumenta: No Skin/Integumentary Disorders: Psoriasis Blood Transfusions History of Blood Disorders: No Adverse Reaction to a Blood Tr: No Family Medical History Significant Family History: No Pertinent Family Hx Family Medial History: Cancer of mouth 19 FATHER ( of esophogeal cancer.) Cardiovascular disease 19 MOTHER G8 BROTHER Completed stroke 19 FATHER G8 BROTHER Diabetes mellitus G8 BROTHER FH: lung cancer 19 MOTHER Hypertension 19 FATHER Kidney disease 19 FATHER Myocardial infarction 19 MOTHER G8 BROTHER Respiratory disorder No Family History of: AIDS Physical Exam Vital Signs Capillary Refill : General Appearance: WD/WN, no apparent distress HEENT: PERRL/EOMI, normal ENT inspection Neck: non-tender, full range of motion Respiratory: no respiratory distress, no accessory muscle use Gastrointestinal: non tender, soft Hips: bilateral hip non-tender, bilateral hip normal inspection, bilateral hip normal range of motion Legs: bilateral leg non-tender, bilateral leg normal inspection, bilateral leg normal range of motion, right leg other (There is pain over the lateral right side terminating in the lateral right thigh. She also has pain over the right sacroiliac joint. There is no rash overlying this.) Knees: bilateral knee non-tender, bilateral knee normal inspection, bilateral knee normal range of motion Ankles: bilateral ankle non-tender, bilateral ankle normal inspection, bilateral ankle normal range of motion Feet: bilateral foot non-tender, bilateral foot normal inspection, bilateral foot normal range of motion Neurologic/Psychiatric: alert, normal mood/affect, oriented x 3 Skin: normal color, warm/dry Departure Impression Impression: Primary Impression: Lumbar radiculopathy Disposition: 01 HOME, SELF-CARE Condition: Stable Departure-Patient Inst. Decision time for Depature: 10:44 Referrals: WINDY GRIFFIN DO (PCP) Primary Care Physician MARCELINO BURKS APRN (Family) Primary Care Physician Patient Instructions: Radiculopathy Add. Discharge Instructions: 1. Follow-up with her regular doctor later this week 2. All discharge instructions reviewed with patient and/or family. Voiced understanding. Scripts Lidocaine (Lidocaine) 1 Each Adh..patch 1 EACH TP BID Y for PAIN-MODERATE TO SEVERE, #10 PATCH Prov: JR MARIE APRN 10/20/17 JR MARIE APRN Oct 20, 2017 10:45
[2017-10-20 10:48] VITALS: BP 124/67
== END 2017-10-20 10:48 | disposition home or self-care (01) ==
LOC: EDUNIT# 10:26 → ER 10:28
DX: M54.16 Radiculopathy, lumbar region (principal); E11.9 Type 2 diabetes mellitus without complications; I25.10 Atherosclerotic heart disease of native coronary artery without angina pectoris; G43.909 Migraine, unspecified, not intractable, without status migrainosus; K21.9 Gastro-esophageal reflux disease without esophagitis; I10 Essential (primary) hypertension; E78.00 Pure hypercholesterolemia, unspecified; E11.40 Type 2 diabetes mellitus with diabetic neuropathy, unspecified; F41.9 Anxiety disorder, unspecified; Z86.718 Personal history of other venous thrombosis and embolism; Z87.09 Personal history of other diseases of the respiratory system; Z87.19 Personal history of other diseases of the digestive system; Z80.0 Family history of malignant neoplasm of digestive organs; Z82.49 Family history of ischemic heart disease and other diseases of the circulatory system; Z79.82 Long term (current) use of aspirin; Z79.4 Long term (current) use of insulin; Z77.22 Contact with and (suspected) exposure to environmental tobacco smoke (acute) (chronic); Z95.5 Presence of coronary angioplasty implant and graft
CPT/HCPCS: 99283

== ENCOUNTER → 2017-10-22 | Outpatient (CLI) | payer MEDICARE ==
[~2017-10-22] MED LIST changes: +LIDO700A45 TP
== END ==
LOC: RAD 08:31
PROVIDERS: ATTEND Nurse Practitioner Family
DX: M51.36 Other intervertebral disc degeneration, lumbar region (principal)

== ENCOUNTER 2017-11-02 15:20 | Outpatient (RCR) | payer MEDICARE, OTHER ==
[2017-09-23 13:00] VITALS: BP 104/69
[~2017-11-02] VITALS: Ht 152.4 cm; Wt 81.8 kg
[2017-11-02 15:20] VITALS: BP 121/71
[~2017-11-02 15:20] MED LIST changes: +ACHD5005 PO; +HEParin (CENTRAL IV FLUSH) 500 UNIT/5 ML SYR ONE; -HYDR-3812 PO
[2017-11-02] MEDS ORDERED: diphenhydrAMINE 25 MG TAB (BENADRYL) PO ONE (16:15)
[2017-12-01] MEDS ORDERED: OXYC-465 PO (09:13)
[2017-12-01] MEDS ORDERED: DICL75TA2 PO (09:13)
[2017-12-01] MEDS ORDERED: GABA-488 PO (09:28)
[2017-12-01] MEDS ORDERED: ASPI-983 PO (09:28)
[2017-12-01] MEDS ORDERED: LINA5TAB PO (09:28)
[2017-12-01] MEDS ORDERED: DIPH25CA79 PO (09:28)
[2017-12-01] MEDS ORDERED: ATOR40TA70 PO (09:28)
[2017-12-01] MEDS ORDERED: OSLT75C PO (12:21)
== END 2017-12-22 | disposition home or self-care (01) ==
LOC: SDC 15:20
PROVIDERS: ATTEND Surgery
DX: I87.2 Venous insufficiency (chronic) (peripheral) (principal)
CPT/HCPCS: 96523

== ENCOUNTER 2017-11-30 13:02 | Observation (INO) | payer MEDICARE ==
[~2017-11-30] VITALS: Ht 152.4 cm; Wt 81.6 kg
[~2017-11-30 13:02] MED LIST changes: -HEParin (CENTRAL IV FLUSH) 500 UNIT/5 ML SYR ONE
[2017-11-30] MEDS ORDERED: morphine INJ 10 MG/ML 1ML (SYR OR VIAL) IVP STA (13:14)
[2017-11-30] MEDS ORDERED: ACETAMINOPHEN 500 MG TAB (TYLENOL) PO PRN (13:15)
--- NOTE | 2017-11-30 13:15 | ED General ---
General Chief Complaint: Cough/Cold/Flu Symptoms Stated Complaint: SOA/FLU SYMPTOMS Source of Information: Patient Exam Limitations: No Limitations History of Present Illness Time Seen by Provider: 13:08 Initial Comments Here with complaint of shortness of air, body aches, feeling weak and overall not feeling well. Denies dysuria or diarrhea. Denies chest pain but states that she does has all over aches. Timing/Duration: 2-3 Days Severity: Moderate Associated Systoms: Chest Pain, Cough, Fever/Chills, Malaise, No Nausea/ Vomiting, Shortness of Air, Weakness Allergies and Home Medications Allergies Coded Allergies: ketorolac (Verified Allergy, Severe, ANAPHYLAXIS, PT TAKES ASA AT HOME, ) ondansetron (Verified Allergy, Intermediate, RASH, 07/19/14) RASH/ HIVES exenatide (Verified Allergy, Unknown, NAUSEA, 07/19/14) NON STOP VOMITING latex (Verified Allergy, Unknown, RASH, 07/19/14) metoclopramide (Verified Allergy, Unknown, RESTLESS LEGS, 07/19/14) Home Medications Amlodipine Besylate 5 Mg Tablet, 5 MG PO DAILY, (Reported) Aspirin 81 Mg Tablet.dr, 81 MG PO DAILY, (Reported) Atorvastatin Calcium 20 Mg Tablet, 20 MG PO HS, (Reported) Benzonatate 100 Mg Capsule, 200 MG PO Q8H, #30 Ref 0 Prescribed by: VALENTIN YANES on 08/17/17 1453 Fluticasone/Vilanterol 1 Each Blst.w.dev, 1 PUFF IH DAILY, (Reported) Gabapentin 300 Mg Capsule, 600 MG PO TID, (Reported) TAKES 2 (300 MG) CAPSULES Ibuprofen 200 Mg Tablet, 400 MG PO TID, #30 Prescribed by: AZEEM MELVIN on 12/30/16 1019 Insulin Detemir 100 Unit/1 Ml Insuln.pen, 50 UNITS SQ BID, (Reported) Insulin Lispro 100 Unit/1 Ml Insuln.pen, 0 SQ AC, (Reported) PER SLIDING SCALE 1 UNIT PER 3 CARBOHYDRATES 1 UNIT FOR EVERY 15 > 150 Lidocaine 1 Each Adh..patch, 1 EACH TP BID PRN for PAIN-MODERATE TO SEVERE, #10 Prescribed by: JR MARIE on 10/20/17 1045 Omeprazole 20 Mg Capsule.dr, 20 MG PO DAILY, (Reported) Oxycodone HCl/Acetaminophen 1 Each Tablet, 2 TAB PO QID PRN for PAIN-MILD TO MODERATE, (Reported) Promethazine HCl 25 Mg Supp.rect, 25 MG RC Q6H PRN for NAUSEA/VOMITING-1ST LINE , #10 Prescribed by: WARD BEE on 03/08/17 1813 Constitutional: see HPI, chills, fever EENTM: nose congestion, No throat pain Respiratory: cough, short of breath Cardiovascular: see HPI, No edema Gastrointestinal: No abdominal pain, No nausea, No vomiting Genitourinary: no symptoms reported Musculoskeletal: see HPI, No joint swelling, muscle pain Skin: no symptoms reported Psychiatric/Neurological: No Symptoms Reported Hematologic/Lymphatic: No Symptoms Reported All Other Systems Reviewed Negative Unless Noted: Yes Past Jayyhow-Yxgaoj-Repibm Hx Patient Social History Alcohol Use: Denies Use Recreational Drug Use: No Smoking Status: Never a Smoker Type Used: Cigarettes Former Smoker, Quit: Sep 22, 2016 2nd Hand Smoke Exposure: No Recent Hopitalizations: No Immunizations Up To Date Tetanus Booster (TDap): Less than 5yrs PED Vaccines UTD: No Date of Pneumonia Vaccine: Dec 12, 2013 Date of Influenza Vaccine: Nov 23, 2016 Seasonal Allergies Seasonal Allergies: No Surgeries History of Surgeries: Yes Surgeries: Cardiac, Coronary Stent, Ear Surgery, Gallbladder, Orthopedic, Renal Respiratory History of Respiratory Disorde: Yes Respiratory Disorders: Chronic Bronchitis Currently Using CPAP: No Currently Using BIPAP: No Cardiovascular History of Cardiac Disorders: Yes (CARDIAC STENTS) Cardiac Disorders: Chronic Edema/Swelling, Coronary Artery Disease, Deep Vein Thrombosis, High Cholesterol, Hypertension Neurological History of Neurological Disord: Yes (NEUROPATHY IN HANDS AND FEET) Neurological Disorders: Headaches /Migraines, Neuropathy 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 System Hx 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 Disorders: No Sexually Transmitted Disease: No HIV/AIDS: No 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 Disorders: Denies 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 Genitourinary History of Genitourinary Disor: Yes Genitourinary Disorders: Bladder Infection, Kidney Stones, Renal Failure Gastrointestinal History of Gastrointestinal Di: Yes Gastrointestinal Disorders: Gastroesophageal Reflux, Chronic Constipation Musculoskeletal History of Musculoskeletal Dis: Yes (CHRONIC NECK PAIN, PSORIATIC ARTHRITIS ) Musculoskeletal Disorders: Degenerate Disk Disease, Chronic Back Pain Endocrine History of Endocrine Disorders: Yes Endocrine Disorders: Diabetes, Insulin dep HEENT History of HEENT Disorders: Yes HEENT Disorders: Chronic Ear Infection Loss of Vision: Denies Hearing Impairment: Hard of Hearing Cancer History of Cancer: No Psychosocial History of Psychiatric Problem: Yes Behavioral Health Disorders: Anxiety Integumentary History of Skin or Integumenta: No Skin/Integumentary Disorders: Psoriasis Blood Transfusions History of Blood Disorders: No Adverse Reaction to a Blood Tr: No Reviewed Nursing Assessment Reviewed/Agree w Nursing PMH: Yes Family Medical History Significant Family History: No Pertinent Family Hx Family Medial History: Cancer of mouth 19 FATHER ( of esophogeal cancer.) Cardiovascular disease 19 MOTHER G8 BROTHER Completed stroke 19 FATHER G8 BROTHER Diabetes mellitus G8 BROTHER FH: lung cancer 19 MOTHER Hypertension 19 FATHER Kidney disease 19 FATHER Myocardial infarction 19 MOTHER G8 BROTHER Respiratory disorder Physical Exam-Suspected Sepsis Physical Exam Vital Signs Vital Sign - Last 12Hours 11/30/17 13:25 Temp 99.4 Pulse 113 Resp 18 B/P (MAP) 135/47 (76) Capillary Refill : General Appearance: No Apparent Distress, WD/WN HEENT: PERRL/EOMI, Pharynx Normal Neck: Non Tender, Supple Respiratory: Lungs Clear, Normal Breath Sounds Cardiovascular: No Murmur, Tachycardia Gastrointestinal: Non Tender, Soft Back: Normal Inspection, No CVA Tenderness, No Vertebral Tenderness Extremity: Normal Range of Motion, Non Tender Neurologic/Psychiatric: Alert, Oriented x3 Skin: normal color, warm/dry Focused Exam Evaluation Lactate Level Laboratory Tests 11/30/17 13:10: Lactic Acid Level 1.84 Lactic Acid Level Laboratory Tests Test 11/30/17 13:10 Lactic Acid Level 1.84 MMOL/L (0.50-2.00) Progress/Results/Core Measures Suspected Sepsis SIRS Temperature: Pulse: Respiratory Rate: Laboratory Tests 11/30/17 13:10: White Blood Count 13.9H Blood Pressure / Mean: Laboratory Tests 11/30/17 13:10: Lactic Acid Level 1.84 Laboratory Tests 11/30/17 13:10: Creatinine 1.36H, INR Comment 1.1, Platelet Count 270, Total Bilirubin 0.6 Results/Orders Lab Results Laboratory Tests Test 11/30/17 13:10 11/30/17 15:14 11/30/17 15:32 Range/Units White Blood Count 13.9 H 4.3-11.0 10^3/uL Red Blood Count 4.66 4.35-5.85 10^6/uL Hemoglobin 14.4 11.5-16.0 G/DL Hematocrit 41 35-52 % Mean Corpuscular Volume 87 80-99 FL Mean Corpuscular Hemoglobin 31 25-34 PG Mean Corpuscular Hemoglobin Concent 36 32-36 G/DL Red Cell Distribution Width 12.7 10.0-14.5 % Platelet Count 270 130-400 10^3/uL Mean Platelet Volume 10.7 H 7.4-10.4 FL Neutrophils (%) (Auto) 74 42-75 % Lymphocytes (%) (Auto) 20 12-44 % Monocytes (%) (Auto) 4 0-12 % Eosinophils (%) (Auto) 1 0-10 % Basophils (%) (Auto) 1 0-10 % Neutrophils # (Auto) 10.3 H 1.8-7.8 X 10^3 Lymphocytes # (Auto) 2.8 1.0-4.0 X 10^3 Monocytes # (Auto) 0.5 0.0-1.0 X 10^3 Eosinophils # (Auto) 0.2 0.0-0.3 10^3/uL Basophils # (Auto) 0.1 0.0-0.1 10^3/uL Prothrombin Time 14.0 12.2-14.7 SEC INR Comment 1.1 0.8-1.4 Activated Partial Thromboplast Time 24 24-35 SEC Sodium Level 131 L 135-145 MMOL/L Potassium Level 4.4 3.6-5.0 MMOL/L Chloride Level 95 L 98-107 MMOL/L Carbon Dioxide Level 18 L 21-32 MMOL/L Anion Gap 18 H 5-14 MMOL/L Blood Urea Nitrogen 21 H 7-18 MG/DL Creatinine 1.36 H 0.60-1.30 MG/DL Estimat Glomerular Filtration Rate 40 BUN/Creatinine Ratio 15 Glucose Level 699 *H 70-105 MG/DL Lactic Acid Level 1.84 0.50-2.00 MMOL/L Calcium Level 8.9 8.5-10.1 MG/DL Total Bilirubin 0.6 0.1-1.0 MG/DL Aspartate Amino Transf (AST/SGOT) 10 5-34 U/L Alanine Aminotransferase (ALT/SGPT) 10 0-55 U/L Alkaline Phosphatase 94 40-136 U/L Troponin I < 0.30 <0.30 NG/ML Total Protein 7.0 6.4-8.2 GM/DL Albumin 3.9 3.2-4.5 GM/DL Urine Color YELLOW Urine Clarity CLEAR Urine pH 6 5-9 Urine Specific [place] 1.010 L 1.016-1.022 Urine Protein 2+ H NEGATIVE Urine Glucose (UA) 4+ H NEGATIVE Urine Ketones 3+ H NEGATIVE Urine Nitrite NEGATIVE NEGATIVE Urine Bilirubin NEGATIVE NEGATIVE Urine Urobilinogen NORMAL NORMAL MG/DL Urine Leukocyte Esterase NEGATIVE NEGATIVE Urine RBC (Auto) NEGATIVE NEGATIVE Urine RBC NONE /HPF Urine WBC NONE /HPF Urine Squamous Epithelial Cells RARE /HPF Urine Crystals NONE /LPF Urine Bacteria NONE /HPF Urine Casts NONE /LPF Urine Mucus NEGATIVE /LPF Urine Culture Indicated NO Glucometer 588 *H 70-110 MG/DL Micro Results Microbiology 11/30/17 Influenza Types A,B Antigen (RACHELL) - Final, Complete My Orders Orders - VALENTIN YANES MD Cbc With Automated Diff (11/30/17 13:13) Comprehensive Metabolic Panel (11/30/17 13:13) Lactic Acid Analyzer (11/30/17 13:13) Blood Culture (11/30/17 13:13) Sputum Culture (11/30/17 13:13) Ua Culture If Indicated (11/30/17 13:13) Protime With Inr (11/30/17 13:13) Partial Thromboplastin Time (11/30/17 13:13) Chest 1 View, Ap/Pa Only (11/30/17 13:13) O2 (11/30/17 13:13) Acetaminophen Tablet (Tylenol Tablet) (11/30/17 13:15) Ekg Tracing (11/30/17 13:13) Troponin I (11/30/17 13:13) Vital Signs Adult Sepsis Patie Q1H (11/30/17 13:13) Remove Rings In Anticipation O (11/30/17 13:13) Influenza A And B Antigens (11/30/17 13:13) Morphine Injection (Morphine Injection (11/30/17 13:14) Insulin (Regular) Human (Humulin R (Per (11/30/17 13:40) Insulin (Regular) Human (Humulin R (Per (11/30/17 15:53) Oxycodone/Acet 10/325mg Tablet (Percocet (1/9/18 16:15) Oseltamivir 75 Mg (10's) Caps (Tamiflu 7 (11/30/17 21:00) Rx-Oseltamivir Caps (Rx-Tamiflu Caps) (11/30/17 16:14) Medications Given in ED Current Medications Medications Dose Ordered Sig/Jackie Route Start Time Stop Time Status Last Admin Dose Admin Acetaminophen 1,000 mg ONCE PRN PO 11/30/17 13:15 11/30/17 13:23 DC 11/30/17 13:22 1,000 MG Vital Signs/I&O Vital Sign - Last 12Hours 11/30/17 13:25 Temp 99.4 Pulse 113 Resp 18 B/P (MAP) 135/47 (76) Capillary Refill : Progress Note : Progress Note Seen and evaluated. IV, labs, UA, Tylenol 1 g by mouth, normal saline 1 L bolus ordered. Blood cultures as ordered. Chest x-ray ordered. Monitor patient. Patient's blood sugar noted to be quite elevated. Insulin 10 units IV given. Monitor patient. Patient is complaining of pain. Morphine 5 mg IV ordered. Monitor patient. Repeat blood sugar still quite elevated at 588. UA shows 3+ ketones. I did discuss the case with on-call for [facility], Dr. Soliz at 1542. She accepts patient for admission, observation status. We will continue her prescribed pain medicine dosing that we will not go over that. That appears to be Percocet one every 5 hours when necessary pain. All of this was discussed with the patient who agrees with the plan. She is requesting one of her Percocets now. This was ordered. We will initiate Tamiflu as well. ECG Initial ECG Impression Date: Nov 30, 2017 Initial ECG Impression Time: 13:40 Initial ECG Rate: 99 Initial ECG Rhythm: Normal Sinus Comment No changes compared to 29 December 2016. Sinus rhythm with normal axis. No evidence of ST elevation [place]. Interpreted by me. Diagnostic Imaging Diagonstic Imaging: Xray Plain Films/CT/US/NM/MRI: chest Comments VIA [facility] [place], [place] NAME: VALENTE HARPER MED REC#: [id number] PT STATUS: REG ER : 1960 PHYSICIAN: VALENTIN YANES MD ADMIT DATE: 11/30/17/ER Draft Date of Exam:11/30/17 CHEST 1 VIEW, AP/PA ONLY INDICATION: Chest pain. EXAMINATION: Portable chest at 01:46 p.m. FINDINGS: Right IJ Port-A-Cath tip projects over the cavoatrial junction. Heart size and pulmonary vascularity are normal. Lungs are clear. There are no effusions or pneumothoraces. IMPRESSION: No acute abnormalities in the chest. Dictated on workstation # [id number] Dict: 11/30/17 1351 Trans: 11/30/[address] 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 Referrals: WINDY GRIFFIN DO (PCP/Family) Primary Care Physician VALENTIN YANES MD Nov 30, 2017 13:15
[2017-11-30 13:23] LABS: BASOPHILS # (AUTO) 0.1 10^3/uL (0.0-0.1); BASOPHILS % (AUTO) 1 % (0-10); EOSINOPHILS # (AUTO) 0.2 10^3/uL (0.0-0.3); EOSINOPHILS % (AUTO) 1 % (0-10); HEMATOCRIT 41 % (35-52); HEMOGLOBIN 14.4 G/DL (11.5-16.0); LYMPHOCYTES # (AUTO) 2.8 X 10^3 (1.0-4.0); LYMPHOCYTES % (AUTO) 20 % (12-44); MEAN CORPUSCULAR HEMOGLOBIN 31 PG (25-34); MEAN CORPUSCULAR HGB CONC 36 G/DL (32-36); MEAN CORPUSCULAR VOLUME 87 FL (80-99); MEAN PLATELET VOLUME 10.7 FL (7.4-10.4); MONOCYTES # (AUTO) 0.5 X 10^3 (0.0-1.0); MONOCYTES % (AUTO) 4 % (0-12); NEUTROPHILS # (AUTO) 10.3 X 10^3 (1.8-7.8); NEUTROPHILS % (AUTO) 74 % (42-75); PLATELET COUNT 270 10^3/uL (130-400); RED BLOOD COUNT 4.66 10^6/uL (4.35-5.85); RED CELL DISTRIBUTION WIDTH 12.7 % (10.0-14.5); WHITE BLOOD COUNT 13.9 10^3/uL (4.3-11.0)
[2017-11-30 13:33] LABS: INR 1.1 (0.8-1.4)
[2017-11-30 13:38] LABS: ALANINE AMINOTRANSFERASE 10 U/L (0-55); ALBUMIN 3.9 GM/DL (3.2-4.5); ALKALINE PHOSPHATASE 94 U/L (40-136); BILIRUBIN,TOTAL 0.6 MG/DL (0.1-1.0); BUN/CREATININE RATIO 15; CALCIUM 8.9 MG/DL (8.5-10.1); CARBON DIOXIDE 18 MMOL/L (21-32); CHLORIDE 95 MMOL/L (98-107); CREATININE SERUM 1.36 MG/DL (0.60-1.30); GFR ESTIMATED 40; POTASSIUM 4.4 MMOL/L (3.6-5.0); SODIUM 131 MMOL/L (135-145)
[2017-11-30 13:40] LABS: GLUCOSE 699 MG/DL (70-105)
[2017-11-30] MEDS ORDERED: inSUlin (REGULAR) HUMAN 1 UNIT/0.01 ML (CHARGE PER UNIT) IV STA ×2 (13:40→15:53)
--- NOTE | 2017-11-30 14:00 | Diagnostic Imaging Report ---
INDICATION: Chest pain. EXAMINATION: Portable chest at 01:46 p.m. FINDINGS: Right IJ Port-A-Cath tip projects over the cavoatrial junction. Heart size and pulmonary vascularity are normal. Lungs are clear. There are no effusions or pneumothoraces. IMPRESSION: No acute abnormalities in the chest. Dictated by: Dictated on workstation # [id number]
[2017-11-30 15:20] LABS: BILIRUBIN,URINE NEGATIVE (NEGATIVE); CLARITY,URINE CLEAR; COLOR,URINE YELLOW; GLUCOSE, URINE (UA) 4+ (NEGATIVE); KETONES,URINE 3+ (NEGATIVE); LEUKOCYTE ESTERASE ,URINE NEGATIVE (NEGATIVE); NITRITE,URINE NEGATIVE (NEGATIVE); PH,URINE 6 (5-9); PROTEIN,URINE 2+ (NEGATIVE); UROBILINOGEN,URINE NORMAL (NORMAL)
[2017-11-30 15:27] LABS: SQUAMOUS EPITHELIAL CELL,UR RARE /HPF
[2017-11-30] MEDS ORDERED: RX-OSELTAMIVIR 75 MG (TAMIFLU) BOX OF 10 PO STA (15:54)
[2017-11-30] MEDS ORDERED: RX-OSELTAMIVIR 75 MG (TAMIFLU) BOX OF 10 PO ONE (16:14)
[2017-11-30] MEDS ORDERED: oxyCODONE/APAP 10/325MG (PERCOCET 10) TABLET PO ONE (16:15)
[2017-11-30 17:03] VITALS: BP 159/102
[2017-11-30 17:28] VITALS: BP 159/102
[2017-11-30] MEDS ORDERED: RT-ALBUTEROL/IPRATROPIUM 3 ML (DUONEB) VIAL INH PRN (17:45)
[2017-11-30] MEDS ORDERED: CATHETER FLUSH 10 ML SYR IV PRN (17:45)
[2017-11-30] MEDS: NS IV 1000 ML 1,000 ML IV SCH ×2 (18:13→22:32)
[2017-11-30 18:15] LABS: ALBUMIN 3.9 GM/DL (3.2-4.5); BILIRUBIN,TOTAL 0.4 MG/DL (0.1-1.0); CALCIUM 8.8 MG/DL (8.5-10.1); CREATININE SERUM 1.31 MG/DL (0.60-1.30); POTASSIUM 4.2 MMOL/L (3.6-5.0); TOTAL PROTEIN 6.7 GM/DL (6.4-8.2)
[2017-11-30] MEDS ORDERED: inSUlin (REGULAR) HUMAN 1 UNIT/0.01 ML (CHARGE PER UNIT) SC ONE (18:24)
[2017-11-30] MEDS ORDERED: inSUlin (REGULAR) HUMAN 1 UNIT/0.01 ML (CHARGE PER UNIT) SC SCH (19:30)
[2017-11-30] MEDS: RT-ALBUTEROL/IPRATROPIUM 3 ML (DUONEB) VIAL INH SCH ×2 (19:32→23:20)
[2017-11-30 20:00] VITALS: BP 152/67
[2017-11-30] MEDS: inSUlin (REGULAR) HUMAN 1 UNIT/0.01 ML (CHARGE PER UNIT) SC SCH (20:10)
[2017-11-30] MEDS ORDERED: OSELTAMIVIR 75 MG (TAMIFLU) BOX OF 10 PO SCH (21:00)
[2017-11-30] MEDS: oxyCODONE/APAP 10/325MG (PERCOCET 10) TABLET PO PRN (22:29)
[2017-12-01] VITALS: BP 122/58
[2017-12-01] MEDS: oxyCODONE/APAP 10/325MG (PERCOCET 10) TABLET PO PRN ×3 (03:23→13:24)
[2017-12-01] MEDS: RT-ALBUTEROL/IPRATROPIUM 3 ML (DUONEB) VIAL INH SCH ×3 (03:34→11:26)
[2017-12-01 04:00] VITALS: BP 121/60
[2017-12-01 05:37] LABS: BASOPHILS # (AUTO) 0.1 10^3/uL (0.0-0.1); BASOPHILS % (AUTO) 1 % (0-10); EOSINOPHILS # (AUTO) 0.3 10^3/uL (0.0-0.3); EOSINOPHILS % (AUTO) 2 % (0-10); HEMATOCRIT 35 % (35-52); HEMOGLOBIN 12.1 G/DL (11.5-16.0); LYMPHOCYTES # (AUTO) 3.1 X 10^3 (1.0-4.0); LYMPHOCYTES % (AUTO) 23 % (12-44); MEAN CORPUSCULAR HEMOGLOBIN 31 PG (25-34); MEAN CORPUSCULAR HGB CONC 35 G/DL (32-36); MEAN CORPUSCULAR VOLUME 89 FL (80-99); MEAN PLATELET VOLUME 10.3 FL (7.4-10.4); MONOCYTES # (AUTO) 0.7 X 10^3 (0.0-1.0); MONOCYTES % (AUTO) 5 % (0-12); NEUTROPHILS # (AUTO) 9.6 X 10^3 (1.8-7.8); NEUTROPHILS % (AUTO) 70 % (42-75); PLATELET COUNT 228 10^3/uL (130-400); RED BLOOD COUNT 3.93 10^6/uL (4.35-5.85); RED CELL DISTRIBUTION WIDTH 12.9 % (10.0-14.5); WHITE BLOOD COUNT 13.7 10^3/uL (4.3-11.0)
[2017-12-01 06:08] LABS: ALBUMIN 3.2 GM/DL (3.2-4.5); BILIRUBIN,TOTAL 0.3 MG/DL (0.1-1.0); CALCIUM 8.5 MG/DL (8.5-10.1); CREATININE SERUM 1.05 MG/DL (0.60-1.30); POTASSIUM 3.6 MMOL/L (3.6-5.0); TOTAL PROTEIN 5.9 GM/DL (6.4-8.2)
[2017-12-01] MEDS: NS IV 1000 ML 1,000 ML IV SCH (06:47)
[2017-12-01 08:00] VITALS: BP 146/75
[2017-12-01] MEDS: inSUlin (REGULAR) HUMAN 1 UNIT/0.01 ML (CHARGE PER UNIT) SC SCH ×2 (08:53→13:24)
[2017-12-01] MEDS ORDERED: OXYC-465 PO (09:13)
[2017-12-01] MEDS ORDERED: DICL75TA2 PO (09:13)
[2017-12-01] MEDS ORDERED: GABA-488 PO (09:28)
[2017-12-01] MEDS ORDERED: DIPH25CA79 PO (09:28)
[2017-12-01] MEDS ORDERED: ATOR40TA70 PO (09:28)
[2017-12-01] MEDS ORDERED: ASPI-983 PO (09:28)
[2017-12-01] MEDS ORDERED: LINA5TAB PO (09:28)
--- NOTE | 2017-12-01 11:29 | Discharge Instructions ---
Discharge [facility] Discharge Medications New, Converted or Re-Newed RX: Other Continued Medications: Amlodipine Besylate (Amlodipine Besylate) 5 Mg Tablet 5 MG PO DAILY, TAB Aspirin (Aspirin EC) 81 Mg Tablet.dr 81 MG PO DAILY, TAB Atorvastatin Calcium (Atorvastatin Calcium) 40 Mg Tablet 40 MG PO HS, TAB Diclofenac Sodium (Diclofenac Sodium) 75 Mg Tablet.dr 75 MG PO BID, TAB Diphenhydramine HCl (Benadryl) 25 Mg Capsule 50-75 MG PO HS PRN for SLEEP, CAP Gabapentin (Gabapentin) 300 Mg Capsule 300 MG PO BID PRN for FOOT PAIN, CAP Gabapentin (Gabapentin) 300 Mg Capsule 1200 MG PO HS, CAP TAKES 4 (300MG) CAPSULES Insulin Detemir (Levemir Flextouch) 100 Unit/1 Ml Insuln.pen 65 UNITS SQ BID, EA Insulin Lispro (Humalog Kwikpen) 100 Unit/1 Ml Insuln.pen SQ AC for SLIDING SCALE, EA SHE IS UNSURE OF HER SLIDING SCALE AND CAN NOT REMEMBER HOW MANY UNITS SHE TYPICALLY USES, SHE TESTS HER BLOOD SUGAR AND ENTERS HER CARBS AND HER METER TELLS HER HOW MANY UNITS OF INSULIN TO USE Linagliptin (Tradjenta) 5 Mg Tablet 5 MG PO DAILY, TAB LAST FILLED #90 08-02-17 Omeprazole (Omeprazole) 20 Mg Capsule.dr 20 MG PO DAILY, CAP Oxycodone HCl/Acetaminophen (Oxycodone-Acetaminophen 10-325) 1 Each Tablet 1 TAB PO EVERY 4-6 HOURS PRN for PAIN-MODERATE, TAB Patient Instructions Goal/Follow Up Appt: DEC 09 1PM WITH MARCELINO BURKS APRN Patient Instructions: PLEASE TAKE ALL MEDICATIONS PRESCRIBED. Return to The Hospital For: INCREASING SHORTNESS OF BREATH, FEVER Activity & Diet Discharge Diet: ADA Diet Activity as Tolerated: Yes Copy Copies To 1: JOSSY BAKER APRN, MD Dec 01, 2017 11:28 am
--- NOTE | 2017-12-01 11:30 | Short Stay Summary ---
History of Present Illness History of Present Illness Reason for visit/HPI 57yo woman well known to me presented to ER with complaints of fever, cough, shortness of breath, and diffuse body aches last night. Patient states that the acute symptoms started over the past few days and gradually worsened such that she wanted to be evaluated in ER. Itzel has a long history of uncontrolled DMT2, and her BS was found to be above 600 in ER. For this reason, the decision was made to observe patient in hospital for the clinical influenza like illness as well as the hyperglycemia. Of note, patient is well know for her requests to have IV morphine potentiated by IV phenergan for chronic nausea. Date of Admission Nov 30, 2017 at 4:16 pm Date of Discharge December 01, 2017 Time Seen by Provider: 09:00 Attending Physician Jossy Soliz MD Admitting Physician Fide Dyer DO Consult Allergies and Home Medications Allergies Coded Allergies: ketorolac (Verified Allergy, Severe, ANAPHYLAXIS, PT TAKES ASA AT HOME, ) ondansetron (Verified Allergy, Intermediate, RASH, 07/19/14) RASH/ HIVES exenatide (Verified Allergy, Unknown, NAUSEA, 07/19/14) NON STOP VOMITING latex (Verified Allergy, Unknown, RASH, 07/19/14) metoclopramide (Verified Allergy, Unknown, RESTLESS LEGS, 07/19/14) Home Medications Amlodipine Besylate 5 Mg Tablet, 5 MG PO DAILY, (Reported) Aspirin 81 Mg Tablet.dr, 81 MG PO DAILY, (Reported) Atorvastatin Calcium 40 Mg Tablet, 40 MG PO HS, (Reported) Diclofenac Sodium 75 Mg Tablet.dr, 75 MG PO BID, (Reported) Diphenhydramine HCl 25 Mg Capsule, 50-75 MG PO HS PRN for SLEEP, (Reported) Gabapentin 300 Mg Capsule, 300 MG PO BID PRN for FOOT PAIN, (Reported) Gabapentin 300 Mg Capsule, 1,200 MG PO HS, (Reported) TAKES 4 (300MG) CAPSULES Insulin Detemir 100 Unit/1 Ml Insuln.pen, 65 UNITS SQ BID, (Reported) Insulin Lispro 100 Unit/1 Ml Insuln.pen, SQ AC, (Reported) SHE IS UNSURE OF HER SLIDING SCALE AND CAN NOT REMEMBER HOW MANY UNITS SHE TYPICALLY USES, SHE TESTS HER BLOOD SUGAR AND ENTERS HER CARBS AND HER METER TELLS HER HOW MANY UNITS OF INSULIN TO USE Linagliptin 5 Mg Tablet, 5 MG PO DAILY, (Reported) LAST FILLED #90 08-02-17 Omeprazole 20 Mg Capsule.dr, 20 MG PO DAILY, (Reported) Oseltamivir Phosphate 75 Mg Cap, 75 MG PO BID for 5 Days, #1 finish box of tamiflu you received from the Emergency Department on Admission - 11/30/17-you will have 8 pills left. Take one pill twice a day, in morning and at night Prescribed by: LIZ HERNADEZ on 12/01/17 1221 Oxycodone HCl/Acetaminophen 1 Each Tablet, 1 TAB PO EVERY 4-6 HOURS PRN for PAIN -MODERATE, (Reported) Past [id number]-Oqspyi Hx Patient Social History Alcohol Use: Denies Use Recreational Drug Use: No Smoking Status: Current Everyday Smoker Former Smoker, Quit: Nov 23, 2017 Type Used: Cigarettes 2nd Hand Smoke Exposure: No Physical Abuse Screen: No Sexual Abuse: No Recent Foreign Travel: No Contact w/other who traveled: No Recent Hopitalizations: No Recent Infectious Disease Expo: No Immunizations Up To Date Tetanus Booster (TDap): Less than 5yrs Pediatric: No Date of Pneumonia Vaccine: Dec 12, 2013 Date of Influenza Vaccine: Sep 07, 2017 Seasonal Allergies Seasonal Allergies: No Surgeries Yes Cardiac, Coronary Stent, Ear Surgery, Gallbladder, Orthopedic, Renal Respiratory Yes Asthma Currently Using CPAP: Yes (AT NIGHT) Currently Using BIPAP: No Cardiovascular Yes (CARDIAC STENTS) Chronic Edema/Swelling, Coronary Artery Disease, Deep Vein Thrombosis, High Cholesterol, Hypertension Neurological Yes (NEUROPATHY IN HANDS AND FEET) Headaches /Migraines, Neuropathy 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 System Hx 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 Disorders: No Sexually Transmitted Disease: No HIV/AIDS: No 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 Disorders: Denies STITCHDOWNS TOE FORMER History: Menopausal Genitourinary Yes Bladder Infection, Kidney Stones, Renal Failure Gastrointestinal Yes Gastroesophageal Reflux, Chronic Constipation Musculoskeletal Yes (CHRONIC NECK PAIN, PSORIATIC ARTHRITIS ) Degenerate Disk Disease, Chronic Back Pain Endocrine History of Endocrine Disorders: Yes Endocrine Disorders: Diabetes, Insulin dep Are Your Blood Sugars Over 250: Yes HEENT History of HEENT Disorders: Yes HEENT Disorders: Chronic Ear Infection Loss of Vision: Denies Hearing Impairment: Hard of Hearing Cancer No Psychosocial History of Psychiatric Problem: Yes Behavioral Health Disorders: Anxiety Integumentary History of Skin or Integumenta: No Skin/Integumentary Disorders: Psoriasis Blood Transfusions History of Blood Disorders: No Adverse Reaction to a Blood Tr: No Reviewed Nursing Assessment Reviewed/Agree w Nursing PMH: Yes Family Medical History Significant Family History: No Pertinent Family Hx Family Hx: Cancer of mouth 19 FATHER ( of esophogeal cancer.) Cardiovascular disease 19 MOTHER G8 BROTHER Completed stroke 19 FATHER G8 BROTHER Diabetes mellitus G8 BROTHER FH: lung cancer 19 MOTHER Hypertension 19 FATHER Kidney disease 19 FATHER Myocardial infarction 19 MOTHER G8 BROTHER Respiratory disorder No Family History of: AIDS Constitutional: see HPI All Other Systems Reviewed Negative Unless Noted: Yes Physical Exam Vital Signs Vital Sign - Last 12Hours 11/30/17 11/30/17 11/30/17 13:25 16:43 17:30 Temp 99.4 Pulse 113 Resp 18 B/P (MAP) 135/47 (76) Pulse Ox 95 O2 Delivery Room Air O2 Flow Rate 2.00 Capillary Refill : Less Than 3 Seconds General Appearance: No Apparent Distress, WD/WN HEENT: PERRL/EOMI, Normal ENT Inspection, Pharynx Normal Neck: Full Range of Motion, Normal Inspection, Non Tender, Supple Respiratory: Chest Non Tender, Lungs Clear, Normal Breath Sounds, No Accessory Muscle Use, No Respiratory Distress Cardiovascular: Regular Rate, Rhythm, No Edema, No Gallop, No JVD, No Murmur, Normal Peripheral Pulses Gastrointestinal: Normal Bowel Sounds, No Organomegaly, No Pulsatile Mass, Non Tender, Soft Back: Normal Inspection, No CVA Tenderness, No Vertebral Tenderness Extremity: Normal Capillary Refill, Normal Inspection, Normal Range of Motion, Non Tender, No Calf Tenderness, No Pedal Edema Neurologic/Psychiatric: Alert, Oriented x3, No Motor/Sensory Deficits, Normal Mood/Affect Skin: Normal Color, Warm/Dry Clinical Quality Measures DVT/VTE Risk/Contraindication: Risk Factor Score Per Nursin RFS Level Per Nursing on Admit: 4+=Very High Short Stay Diagnosis Discharge Diagnosis-Short Stay Admission Diagnosis: CLINICAL INFLUENZA LIKE ILLNESS DIABETES MELLITUS TYPE 2 WITH HYPERGLYCEMIA MORBID OBESITY Final Discharge Diagnosis: SAME Conclusion Labs Laboratory Tests 11/30/17 13:10: White Blood Count 13.9H, Red Blood Count 4.66, Hemoglobin 14.4, Hematocrit 41, Mean Corpuscular Volume 87, Mean Corpuscular Hemoglobin 31, Mean Corpuscular Hemoglobin Concent 36, Red Cell Distribution Width 12.7, Platelet Count 270, Mean Platelet Volume 10.7H, Neutrophils (%) (Auto) 74, Lymphocytes (%) (Auto) 20 , Monocytes (%) (Auto) 4, Eosinophils (%) (Auto) 1, Basophils (%) (Auto) 1, Neutrophils # (Auto) 10.3H, Lymphocytes # (Auto) 2.8, Monocytes # (Auto) 0.5, Eosinophils # (Auto) 0.2, Basophils # (Auto) 0.1, Prothrombin Time 14.0, INR Comment 1.1, Activated Partial Thromboplast Time 24, Sodium Level 131L, Potassium Level 4.4, Chloride Level 95L, Carbon Dioxide Level 18L, Anion Gap 18H , Blood Urea Nitrogen 21H, Creatinine 1.36H, Estimat Glomerular Filtration Rate 40, BUN/Creatinine Ratio 15, Glucose Level 699*H, Lactic Acid Level 1.84, Calcium Level 8.9, Total Bilirubin 0.6, Aspartate Amino Transf (AST/SGOT) 10, Alanine Aminotransferase (ALT/SGPT) 10, Alkaline Phosphatase 94, Troponin I < 0.30, Total Protein 7.0, Albumin 3.9 11/30/17 15:14: Urine Color YELLOW, Urine Clarity CLEAR, Urine pH 6, Urine Specific Cornelius 1.010L, Urine Protein 2+H, Urine Glucose (UA) 4+H, Urine Ketones 3+H, Urine Nitrite NEGATIVE, Urine Bilirubin NEGATIVE, Urine Urobilinogen NORMAL, Urine Leukocyte Esterase NEGATIVE, Urine RBC (Auto) NEGATIVE, Urine RBC NONE, Urine WBC NONE, Urine Squamous Epithelial Cells RARE, Urine Crystals NONE, Urine Bacteria NONE, Urine Casts NONE, Urine Mucus NEGATIVE, Urine Culture Indicated NO 11/30/17 15:32: Glucometer 588*H 11/30/17 17:35: Glucometer 457*H 11/30/17 17:51: Sodium Level 135, Potassium Level 4.2, Chloride Level 101, Carbon Dioxide Level 21, Anion Gap 13, Blood Urea Nitrogen 20H, Creatinine 1.31H, Estimat Glomerular Filtration Rate 42, BUN/Creatinine Ratio 15, Glucose Level 490*H, Calcium Level 8.8, Total Bilirubin 0.4, Aspartate Amino Transf (AST/SGOT) 9, Alanine Aminotransferase (ALT/SGPT) 12, Alkaline Phosphatase 91, Total Protein 6.7, Albumin 3.9 11/30/17 19:34: Glucometer 372H 11/30/17 20:41: Glucometer 299H 11/30/17 23:55: Glucometer 62L 12/01/17 00:49: Glucometer 110 12/01/17 03:10: Glucometer 146H 12/01/17 05:28: White Blood Count 13.7H, Red Blood Count 3.93L, Hemoglobin 12.1, Hematocrit 35, Mean Corpuscular Volume 89, Mean Corpuscular Hemoglobin 31, Mean Corpuscular Hemoglobin Concent 35, Red Cell Distribution Width 12.9, Platelet Count 228, Mean Platelet Volume 10.3, Neutrophils (%) (Auto) 70, Lymphocytes (%) (Auto) 23 , Monocytes (%) (Auto) 5, Eosinophils (%) (Auto) 2, Basophils (%) (Auto) 1, Neutrophils # (Auto) 9.6H, Lymphocytes # (Auto) 3.1, Monocytes # (Auto) 0.7, Eosinophils # (Auto) 0.3, Basophils # (Auto) 0.1, Sodium Level 140, Potassium Level 3.6, Chloride Level 107, Carbon Dioxide Level 17L, Anion Gap 16H, Blood Urea Nitrogen 21H, Creatinine 1.05, Estimat Glomerular Filtration Rate 54, BUN/ Creatinine Ratio 20, Glucose Level 291H, Calcium Level 8.5, Total Bilirubin 0.3 , Aspartate Amino Transf (AST/SGOT) 11, Alanine Aminotransferase (ALT/SGPT) 10, Alkaline Phosphatase 79, Total Protein 5.9L, Albumin 3.2 12/01/17 05:45: Glucometer 278H 12/01/17 10:01: Glucometer 356H Microbiology 11/30/17 Influenza Types A,B Antigen (RACHELL) - Final, Complete Conclusion/Plan Itzel was observed overnight in hospital. She was tolerating clear fluids without problems despite her requests to me for the IV phenergan. She is able to go home on a clear liquid diet and to follow up with her PCP. She did get a dose of Tamiflu in ER, so we sent the box of Tamiflu home with her. We did not make other changes besides that. Her blood sugar did come down with IV insulin. Copy Copies To 1: JOSSY BAKER APRN, MD Dec 01, 2017 11:30
[2017-12-01 12:00] VITALS: BP 135/73
[2017-12-01] MEDS ORDERED: OSLT75C PO (12:21)
== END 2017-12-01 11:26 | disposition home or self-care (01) ==
LOC: EDUNIT# 13:02 → ER 13:04 → 4TH 16:16 → UNDOADMOB 16:16 → 4TH 17:03 → UNDODISOB 12-01 13:30
PROVIDERS: ADMIT Pediatrics; ATTEND Pediatrics
DX: J11.1 Influenza due to unidentified influenza virus with other respiratory manifestations (principal); E11.65 Type 2 diabetes mellitus with hyperglycemia; I25.10 Atherosclerotic heart disease of native coronary artery without angina pectoris; E78.00 Pure hypercholesterolemia, unspecified; I10 Essential (primary) hypertension; R60.9 Edema, unspecified; K21.9 Gastro-esophageal reflux disease without esophagitis; K59.09 Other constipation; E11.43 Type 2 diabetes mellitus with diabetic autonomic (poly)neuropathy; F17.210 Nicotine dependence, cigarettes, uncomplicated; E66.01 Morbid (severe) obesity due to excess calories; Z68.35 Body mass index [BMI] 35.0-35.9, adult; Z79.4 Long term (current) use of insulin; Z79.899 Other long term (current) drug therapy; Z95.5 Presence of coronary angioplasty implant and graft
CPT/HCPCS: 36415; 51701; 71045; 80053; 81000; 82962; 83605; 84484; 85025; 85610; 85730; 87040; 87804; 93005; 94640; 94664; 94760; 96374; 96375; 96376; G0378

== ENCOUNTER 2017-12-03 17:27 | Observation (INO) | payer MEDICARE ==
[~2017-12-03] VITALS: Ht 152.4 cm; Wt 82.1 kg
[~2017-12-03 17:27] MED LIST changes: +ASPI-983 PO; +ATOR40TA70 PO; +DICL75TA2 PO; +DIPH25CA79 PO; +OSLT75C PO; +OXYC-465 PO
[2017-12-03] MEDS ORDERED: NS IV 1000 ML 1,000 ML IV ONE (18:05)
[2017-12-03 18:12] LABS: BILIRUBIN,URINE NEGATIVE (NEGATIVE); CLARITY,URINE CLEAR; COLOR,URINE YELLOW; GLUCOSE, URINE (UA) 4+ (NEGATIVE); KETONES,URINE NEGATIVE (NEGATIVE); LEUKOCYTE ESTERASE ,URINE NEGATIVE (NEGATIVE); NITRITE,URINE NEGATIVE (NEGATIVE); PH,URINE 6.5 (5-9); PROTEIN,URINE 2+ (NEGATIVE); UROBILINOGEN,URINE NORMAL (NORMAL)
[2017-12-03] MEDS ORDERED: inSUlin (REGULAR) HUMAN 1 UNIT/0.01 ML (CHARGE PER UNIT) IV ONE (18:15)
[2017-12-03 18:20] LABS: BACTERIA,URINE NEGATIVE /HPF; RBC,URINE RARE /HPF; SQUAMOUS EPITHELIAL CELL,UR RARE /HPF
[2017-12-03 18:23] LABS: BASOPHILS # (AUTO) 0.1 10^3/uL (0.0-0.1); BASOPHILS % (AUTO) 1 % (0-10); EOSINOPHILS # (AUTO) 0.2 10^3/uL (0.0-0.3); EOSINOPHILS % (AUTO) 2 % (0-10); HEMATOCRIT 40 % (35-52); LYMPHOCYTES # (AUTO) 1.8 X 10^3 (1.0-4.0); LYMPHOCYTES % (AUTO) 18 % (12-44); MEAN CORPUSCULAR HEMOGLOBIN 30 PG (25-34); MEAN CORPUSCULAR HGB CONC 35 G/DL (32-36); MEAN CORPUSCULAR VOLUME 86 FL (80-99); MEAN PLATELET VOLUME 10.9 FL (7.4-10.4); MONOCYTES # (AUTO) 0.4 X 10^3 (0.0-1.0); MONOCYTES % (AUTO) 4 % (0-12); NEUTROPHILS # (AUTO) 7.8 X 10^3 (1.8-7.8); NEUTROPHILS % (AUTO) 76 % (42-75); PLATELET COUNT 227 10^3/uL (130-400); RED BLOOD COUNT 4.65 10^6/uL (4.35-5.85); RED CELL DISTRIBUTION WIDTH 12.6 % (10.0-14.5); WHITE BLOOD COUNT 10.3 10^3/uL (4.3-11.0)
[2017-12-03 18:24] LABS: AMPHETAMINE SCREEN, URINE NEGATIVE (NEGATIVE); BARBITURATE SCREEN URINE NEGATIVE (NEGATIVE); BENZODIAZEPINES SCREEN URINE NEGATIVE (NEGATIVE); CANNABINOID SCREEN, URINE NEGATIVE (NEGATIVE); COCAINE SCREEN URINE NEGATIVE (NEGATIVE); METHADONE STAT NEGATIVE (NEGATIVE); METHAMPHETAMINE SCREEN URINE S NEGATIVE (NEGATIVE); OPIATE SCREEN URINE POSITIVE (NEGATIVE); OXYCODONE STAT NEGATIVE (NEGATIVE); PROPOXYPHENE STAT NEGATIVE (NEGATIVE); TRICYCLIC ANTIDEPRESSANTS SCRE NEGATIVE (NEGATIVE)
--- NOTE | 2017-12-03 18:34 | ED General ---
General Chief Complaint: Glucose Problems Stated Complaint: HIGH BS Nursing Triage Note: TO ROOM PER EMS WAS SEEN TUE IN ER FOR GLUCOSE AND FLU PROBLEMS WAS ADMITTED FOR HIGH GLUCOSE DISCHARGE WED PATIENT REPORTS CON'T TO BE WEAK. REPORTS THAT HER BLOOD SUGAR IS 600 REPORTS TO THIS NURSE SHE HAS BEEN TAKING HER INSULIN. Nursing Sepsis Screen: No Definite Risk Source of Information: Patient History of Present Illness Time Seen by Provider: 17:53 Initial Comments PT ARRIVED VIA EMS PRIOR TO MY ARRIVAL PT WITH ELEVATED BLOOD SUGAR--GLUCOMETER READ "HIGH" PT GIVES CONFLICTING INFORMATION--FIRST STATED THAT SHE HAD NOT TAKEN HER INSULIN TODAY. LATER STATES SHE HAS BEEN CHECKING HER BLOOD SUGAR ALL DAY TODAY AND YESTERDAY AND GIVING HERSELF "30 UNITS OF INSULIN EVERY 3 HOURS" "AND IT JUST WON'T COME DOWN" PT WAS SEEN HERE AND ADMITTED FOR SAME 11/30-12/01--"JUST FORGETS" TO TAKE INSULIN. WAS ALSO HAVING POSSIBLE FLU-LIKE SYMPTOMS AT THAT TIME WELL--PT DOES NOT HAVE ANY OF THOSE SYMPTOMS TODAY C/O GENERALIZED WEAKNESS C/O NAUSEA AND VOMITING SINCE YESTERDAY--STATES SHE "CAN'T KEEP HER PERCOCET DOWN" PT STATES SHE HAD BEEN DRINKING SIPS OF WATER TODAY AND SHE CAN'T KEEP THEM DOWN. CLAIMS SHE "HAS NOT EATEN ANYTHING IN A WEEK' PT WITH MULTITUDE OF VISITS, MOST FOR THIS SAME ISSUE 13 VISITS IN LAST YEAR PT ALWAYS DEMANDING IV MORPHINE, BENADRYL AND PHENERGAN SOON SHE ARRIVES , WHICH SHE HAS DONE TODAY WELL PT WITH LONG HISTORY OF NON-COMPLIANCE IN ALL ASPECTS OF CARE PCP: [facility] [place] [facility] [place] EXECUTIVE CREATIVE DIRECTOR: SELINA LINDSAY COREMAKER SUPERVISOR: DR. LAMA Allergies and Home Medications Allergies Coded Allergies: ketorolac (Verified Allergy, Severe, ANAPHYLAXIS, PT TAKES ASA AT HOME, ) ondansetron (Verified Allergy, Intermediate, RASH, 07/19/14) RASH/ HIVES exenatide (Verified Allergy, Unknown, NAUSEA, 07/19/14) NON STOP VOMITING latex (Verified Allergy, Unknown, RASH, 07/19/14) metoclopramide (Verified Allergy, Unknown, RESTLESS LEGS, 07/19/14) Home Medications Amlodipine Besylate 5 Mg Tablet, 5 MG PO DAILY, (Reported) Aspirin 81 Mg Tablet.dr, 81 MG PO DAILY, (Reported) Atorvastatin Calcium 40 Mg Tablet, 40 MG PO HS, (Reported) Diclofenac Sodium 75 Mg Tablet.dr, 75 MG PO BID, (Reported) Diphenhydramine HCl 25 Mg Capsule, 50-75 MG PO HS PRN for SLEEP, (Reported) Gabapentin 300 Mg Capsule, 300 MG PO BID PRN for FOOT PAIN, (Reported) Gabapentin 300 Mg Capsule, 1,200 MG PO HS, (Reported) TAKES 4 (300MG) CAPSULES Insulin Detemir 100 Unit/1 Ml Insuln.pen, 65 UNITS SQ BID, (Reported) Insulin Lispro 100 Unit/1 Ml Insuln.pen, SQ AC, (Reported) SHE IS UNSURE OF HER SLIDING SCALE AND CAN NOT REMEMBER HOW MANY UNITS SHE TYPICALLY USES, SHE TESTS HER BLOOD SUGAR AND ENTERS HER CARBS AND HER METER TELLS HER HOW MANY UNITS OF INSULIN TO USE Linagliptin 5 Mg Tablet, 5 MG PO DAILY, (Reported) LAST FILLED #90 08-02-17 Omeprazole 20 Mg Capsule.dr, 20 MG PO DAILY, (Reported) Oseltamivir Phosphate 75 Mg Cap, 75 MG PO BID for 5 Days, #1 finish box of tamiflu you received from the Emergency Department on Admission - 11/30/17-you will have 8 pills left. Take one pill twice a day, in morning and at night Prescribed by: LIZ HERNADEZ on 12/01/17 1221 Oxycodone HCl/Acetaminophen 1 Each Tablet, 1 TAB PO EVERY 4-6 HOURS PRN for PAIN -MODERATE, (Reported) Constitutional: see HPI, No chills, No diaphoresis, No fever, malaise, weakness EENTM: no symptoms reported Respiratory: no symptoms reported Cardiovascular: no symptoms reported Gastrointestinal: nausea (CHRONIC COMPLAINT) Musculoskeletal: no symptoms reported (CHRONIC GENERALIZED PAIN COMPLAINTS--NO DIFFERENT THAN NORMAL), see HPI Skin: no symptoms reported Psychiatric/Neurological: No Symptoms Reported Hematologic/Lymphatic: No Symptoms Reported Immunological/Allergic: no symptoms reported Past Zmwbdhu-Xhaoer-Jarqmu Hx Patient Social History Alcohol Use: Denies Use Recreational Drug Use: No Smoking Status: Current Everyday Smoker (1 PPD) Type Used: Cigarettes (1 PPD) 2nd Hand Smoke Exposure: No Recent Foreign Travel: No Contact w/Someone Who Travel: No Recent Infectious Disease Expo: No Recent Hopitalizations: No Immunizations Up To Date Tetanus Booster (TDap): Less than 5yrs PED Vaccines UTD: No Date of Pneumonia Vaccine: Dec 12, 2013 Date of Influenza Vaccine: Sep 07, 2017 Seasonal Allergies Seasonal Allergies: No Surgeries History of Surgeries: Yes (C-SPINE X 1; L-SPINE X 4; CARDIAC CATH X 3-STENT X 1 --LAST CATH 03/10/16--NO INTERVENTION AT THAT TIME; PORT RIGHT CHEST) Surgeries: Cardiac, Coronary Stent, Ear Surgery, Gallbladder, Orthopedic, Renal Respiratory History of Respiratory Disorde: Yes Respiratory Disorders: Chronic Bronchitis Currently Using CPAP: Yes (AT NIGHT) Currently Using BIPAP: No Cardiovascular History of Cardiac Disorders: Yes (CARDIAC CATHS WITH STENT X 1) Cardiac Disorders: Chronic Edema/Swelling, Coronary Artery Disease, Deep Vein Thrombosis, High Cholesterol, Hypertension Neurological History of Neurological Disord: Yes (NEUROPATHY IN HANDS AND FEET) Neurological Disorders: Headaches /Migraines, Neuropathy 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 System Hx 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 Disorders: No Sexually Transmitted Disease: No HIV/AIDS: No 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 Disorders: Denies BLADDER TRIMMER History: Menopausal Genitourinary History of Genitourinary Disor: Yes Genitourinary Disorders: Bladder Infection, Kidney Stones, Renal Failure Gastrointestinal History of Gastrointestinal Di: Yes Gastrointestinal Disorders: Gastroesophageal Reflux, Chronic Constipation Musculoskeletal History of Musculoskeletal Dis: Yes (CHRONIC NECK PAIN, PSORIATIC ARTHRITIS ) Musculoskeletal Disorders: Degenerate Disk Disease, Chronic Back Pain Endocrine History of Endocrine Disorders: Yes Endocrine Disorders: Diabetes, Insulin dep HEENT History of HEENT Disorders: Yes (POOR DENTITION) HEENT Disorders: Chronic Ear Infection Loss of Vision: Denies Hearing Impairment: Hard of Hearing Cancer History of Cancer: No Psychosocial History of Psychiatric Problem: Yes Behavioral Health Disorders: Anxiety Integumentary History of Skin or Integumenta: Yes Skin/Integumentary Disorders: Psoriasis Blood Transfusions History of Blood Disorders: No Adverse Reaction to a Blood Tr: No Family Medical History Significant Family History: No Pertinent Family Hx Family Medial History: Cancer of mouth 19 FATHER ( of esophogeal cancer.) Cardiovascular disease 19 MOTHER G8 BROTHER Completed stroke 19 FATHER G8 BROTHER Diabetes mellitus G8 BROTHER FH: lung cancer 19 MOTHER Hypertension 19 FATHER Kidney disease 19 FATHER Myocardial infarction 19 MOTHER G8 BROTHER Respiratory disorder No Family History of: AIDS Physical Exam Vital Signs Vital Sign - Last 12Hours 12/03/17 17:27 Temp 99.0 Pulse 94 Resp 18 B/P (MAP) 179/94 (122) Capillary Refill : Less Than 3 Seconds General Appearance: WD/WN, Obese, Other (DOES NOT APPEAR TO BE IN ANY DISCOMFORT OR DISTRESS AT ANY TIME DURING ENTIRE ER STAY. PT MOVES AND GETS IN AND OUT OF BED ON TO BEDSIDE COMMODE SEVERAL TIMES DURING ER STAY, WITHOUT ANY DIFFICULTY WHATSOEVER. ) HEENT: PERRL/EOMI, Other (POOR DENTITION--EXTENSIVE DECAY WITH MULTIPLE MISSING TEETH AND MOST REMAINING TEETH DECAYED DOWN TO GUMS) Neck: Full Range of Motion, Normal Inspection, Non Tender, Supple Respiratory: Normal Breath Sounds, No Accessory Muscle Use, No Respiratory Distress Cardiovascular: Regular Rate, Rhythm, No Edema, No JVD, No Murmur, Normal Peripheral Pulses (+2/4 BILATERALLY) Gastrointestinal: Normal Bowel Sounds, No Organomegaly, No Pulsatile Mass, Non Tender, Soft Back: Normal Inspection, No CVA Tenderness Extremity: Normal Capillary Refill, Normal Inspection, Normal Range of Motion, Non Tender, No Calf Tenderness, No Pedal Edema Neurologic/Psychiatric: Alert, Oriented x3, No Motor/Sensory Deficits, 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 Norm as Tested Skin: Normal Color, Warm/Dry, No Rash Progress/Results/Core Measures Suspected Sepsis Recent Fever Within 48 Hours: No Infection Criteria Present: None New/Unexplained Altered Menta: No Sepsis Screen: No Definite Risk Sepsis Diagnosis: SIRS Temperature:99.0 Pulse: 94 Respiratory Rate: 18 Laboratory Tests 12/03/17 18:17: White Blood Count 10.3 Blood Pressure 179 /94 Mean: 122 Laboratory Tests 12/03/17 18:17: Creatinine 1.49H, Platelet Count 227, Total Bilirubin 0.5 Results/Orders Lab Results Laboratory Tests Test 12/03/17 17:53 12/03/17 18:06 12/03/17 18:17 12/03/17 19:05 Range/Units Glucometer > 600 *H 70-110 MG/DL Urine Color YELLOW Urine Clarity CLEAR Urine pH 6.5 5-9 Urine Specific [place] 1.005 L 1.016-1.022 Urine Protein 2+ H NEGATIVE Urine Glucose (UA) 4+ H NEGATIVE Urine Ketones NEGATIVE NEGATIVE Urine Nitrite NEGATIVE NEGATIVE Urine Bilirubin NEGATIVE NEGATIVE Urine Urobilinogen NORMAL NORMAL MG/DL Urine Leukocyte Esterase NEGATIVE NEGATIVE Urine RBC (Auto) 1+ H NEGATIVE Urine RBC RARE /HPF Urine WBC NONE /HPF Urine Squamous Epithelial Cells RARE /HPF Urine Crystals NONE /LPF Urine Bacteria NEGATIVE /HPF Urine Casts NONE /LPF Urine Mucus NEGATIVE /LPF Urine Culture Indicated NO Urine Opiates Screen POSITIVE H NEGATIVE Urine Oxycodone Screen NEGATIVE NEGATIVE Urine Methadone Screen NEGATIVE NEGATIVE Urine Propoxyphene Screen NEGATIVE NEGATIVE Urine Barbiturates Screen NEGATIVE NEGATIVE Ur Tricyclic Antidepressants Screen NEGATIVE NEGATIVE Urine Phencyclidine Screen NEGATIVE NEGATIVE Urine Amphetamines Screen NEGATIVE NEGATIVE Urine Methamphetamines Screen NEGATIVE NEGATIVE Urine Benzodiazepines Screen NEGATIVE NEGATIVE Urine Cocaine Screen NEGATIVE NEGATIVE Urine Cannabinoids Screen NEGATIVE NEGATIVE White Blood Count 10.3 4.3-11.0 10^3/uL Red Blood Count 4.65 4.35-5.85 10^6/uL Hemoglobin 14.0 11.5-16.0 G/DL Hematocrit 40 35-52 % Mean Corpuscular Volume 86 80-99 FL Mean Corpuscular Hemoglobin 30 25-34 PG Mean Corpuscular Hemoglobin Concent 35 32-36 G/DL Red Cell Distribution Width 12.6 10.0-14.5 % Platelet Count 227 130-400 10^3/uL Mean Platelet Volume 10.9 H 7.4-10.4 FL Neutrophils (%) (Auto) 76 H 42-75 % Lymphocytes (%) (Auto) 18 12-44 % Monocytes (%) (Auto) 4 0-12 % Eosinophils (%) (Auto) 2 0-10 % Basophils (%) (Auto) 1 0-10 % Neutrophils # (Auto) 7.8 1.8-7.8 X 10^3 Lymphocytes # (Auto) 1.8 1.0-4.0 X 10^3 Monocytes # (Auto) 0.4 0.0-1.0 X 10^3 Eosinophils # (Auto) 0.2 0.0-0.3 10^3/uL Basophils # (Auto) 0.1 0.0-0.1 10^3/uL Sodium Level 135 135-145 MMOL/L Potassium Level 4.3 3.6-5.0 MMOL/L Chloride Level 101 98-107 MMOL/L Carbon Dioxide Level 19 L 21-32 MMOL/L Anion Gap 15 H 5-14 MMOL/L Blood Urea Nitrogen 14 7-18 MG/DL Creatinine 1.49 H 0.60-1.30 MG/DL Estimat Glomerular Filtration Rate 36 BUN/Creatinine Ratio 9 Glucose Level 879 *H 70-105 MG/DL Calcium Level 9.2 8.5-10.1 MG/DL Magnesium Level 1.7 L 1.8-2.4 MG/DL Total Bilirubin 0.5 0.1-1.0 MG/DL Aspartate Amino Transf (AST/SGOT) 11 5-34 U/L Alanine Aminotransferase (ALT/SGPT) 13 0-55 U/L Alkaline Phosphatase 105 40-136 U/L Total Protein 7.2 6.4-8.2 GM/DL Albumin 3.9 3.2-4.5 GM/DL Amylase Level 38 25-125 U/L Lipase 27 8-78 U/L Serum Alcohol < 10 <10 MG/DL Blood Gas Puncture Site RT RAD Blood Gas Patient Temperature 98.2 Arterial Blood pH 7.39 7.37-7.43 Arterial Blood Partial Pressure CO2 31 L 35-45 MMHG Arterial Blood Partial Pressure O2 87 79-93 MMHG Arterial Blood HCO3 18 L 23-27 MMOL/L Arterial Blood Total CO2 19.0 L 21.0-31.0 MMOL/L Arterial Blood Oxygen Saturation 98 94-100 % Arterial Blood Base Excess -6.1 L -2.5-2.5 MMOL/L Antonio Test YES-POS Blood Gas Ventilator Setting NO Blood Gas Inspired Oxygen ROOM AIR My Orders Orders - PURA PIÑA DO Accucheck Stat ONCE (12/03/17 18:05) Saline Lock/Iv-Start (12/03/17 18:05) Monitor-Rhythm Ecg Trace Only (12/03/17 18:05) Alcohol (12/03/17 18:05) Amylase (12/03/17 18:05) Arterial Blood Gas (12/03/17 18:05) Cbc With Automated Diff (12/03/17 18:05) Comprehensive Metabolic Panel (12/03/17 18:05) Drug Screen Stat (Urine) (12/03/17 18:05) Lipase (12/03/17 18:05) Magnesium (12/03/17 18:05) Ua Culture If Indicated (12/03/17 18:05) Saline Lock/Iv-Start (12/03/17 18:05) Ns Iv 1000 Ml (Sodium Chloride 0.9%) (12/03/17 18:05) Insulin (Regular) Human (Humulin R (Per (12/03/17 18:15) Scopolamine Patch (Transderm-Scop Patch) (12/03/17 18:45) Accucheck Stat ONCE (12/03/17 19:43) Medications Given in ED Current Medications Medications Dose Ordered Sig/Jackie Route Start Time Stop Time Status Last Admin Dose Admin Insulin Human Regular 20 unit ONCE ONCE IV 12/03/17 18:15 12/03/17 18:16 DC 12/03/17 18:29 20 UNIT Sodium Chloride 1,000 ml @ 0 mls/hr Q0M ONCE IV 12/03/17 18:05 12/03/17 18:06 DC 12/03/17 18:29 1,000 MLS/HR Vital Signs/I&O Vital Sign - Last 12Hours 12/03/17 17:27 Temp 99.0 Pulse 94 Resp 18 B/P (MAP) 179/94 (122) Capillary Refill : Less Than 3 Seconds Blood Pressure Mean: 122 Progress Note : Progress Note PT REFUSES SCOPOLAMINE PATCH--STATES THE ONLY THING SHE WILL TAKE FOR NAUSEA IS PHENERGAN WITH BENADRYL AND REFUSING ANYTHING ELSE FOR NAUSEA. PT HAD NO VOMITING DURING ER STAY AND TOLERATING ICE CHIPS REPEATEDLY WANTING SOMETHING FOR HER CHRONIC PAIN, CLAIMING SHE HASN'T HAD ANYTHING FOR PAIN TODAY. --ADVISED THAT I WOULD NOT BE GIVING HER ANYTHING FOR PAIN IN THE ER, AND SHE WOULD ONLY BE GETTING HER REGULAR MEDICATIONS WHEN SHE IS ADMITTED TO THE FLOOR AND NOTHING ELSE FOR PAIN . PT STATING MORE THAN ONCE IN THE ER THAT SHE WANTS ME TO GIVE HER "SOMETHING TO KNOCK HER OUT"--ADVISED HER THAT THERE WAS NO MEDICAL INDICATION FOR HER TO BE SEDATED PT CONTINUED TO BE VERY MANIPULATIVE DURING ENTIRE ER STAY AND VERY DEMANDING AND HOSTILE--LITERALLY PUSHING CALL LIGHT OVER 30 TIMES DURING ER STAY, FOR VERY TRIVIAL THINGS --LITERALLY PUSHING CALL LIGHT LESS THAN 5 SECONDS AFTER STAFF MEMBER OR MYSELF HAD JUST LEFT THE ROOM FROM ANSWERING HER PREVIOUS CALL LIGHT-- FOR VARIOUS DEMANDS MANIPULATIVE BEHAVIOR, FOR EXAMPLE, TELLING NURSING STAFF THAT I TOLD HER SHE COULD BE ON A MORPHINE DRIP IN ER --WHEN I LITERALLY HAD TOLD HER NO TO ANY PAIN MEDICATIONS IN ER, LESS THAN 60 SECONDS PRIOR TO THAT. PT WAS REPEATEDLY INFORMED THAT SHE WOULD ONLY BE GETTING HER REGULAR MEDICATIONS WHEN SHE GOT TO THE FLOOR FOCUS CHANGES FROM NAUSEA MEDICATIONS TO PAIN MEDICATIONS, AFTER HER REPEATED DEMANDS FOR PHENERGAN + BENADRYL WERE DECLINED--PT MADE NO FURTHER MENTION OF NAUSEA, AND NOW DEMANDING SOMETHING TO DRINK--PT WAS GIVEN ICE CHIPS. PT TAKING WITHOUT ANY DIFFICULTY. PT NOTED TO BE TALKING, LAUGHING, ETC AND ACTING COMPLETELY FINE WHEN VISITORS IN ROOM OR SHE WAS CALLING SOMEONE ON THE PHONE, THEN SOON VISITORS LEFT OR SHE HANGS UP THE PHONE, PT NOW SUPPORT SERVICES MANAGER LIGHT AND MOANING, ETC. --THIS BEHAVIOR GOES AWAY COMPLETELY WHEN DISTRACTED AND SOON STAFF ENTER ROOM. Departure Communication (Admissions) Progress Notes 1909--SPOKE WITH DR. ZIMMER, ACCEPTS PT FOR ADMIT Impression Impression: Primary Impression: Uncontrolled type 2 DM with hyperosmolar nonketotic hyperglycemia Additional Impression: Medical non-compliance Disposition: ADMITTED INPATIENT Condition: Stable Admissions Decision to Admit Reason: Admit from ER (General) Decision to Admit/Date: Dec 03, 2017 Time/Decision to Admit Time: 19:10 Departure-Patient Inst. Referrals: WINDY GRIFFIN DO (PCP/Family) Primary Care Physician PURA PIÑA DO Dec 03, 2017 18:34
[2017-12-03 18:41] LABS: ALANINE AMINOTRANSFERASE 13 U/L (0-55); ALBUMIN 3.9 GM/DL (3.2-4.5); ALKALINE PHOSPHATASE 105 U/L (40-136); AMYLASE 38 U/L (25-125); BILIRUBIN,TOTAL 0.5 MG/DL (0.1-1.0); BUN/CREATININE RATIO 9; CALCIUM 9.2 MG/DL (8.5-10.1); CARBON DIOXIDE 19 MMOL/L (21-32); CHLORIDE 101 MMOL/L (98-107); CREATININE SERUM 1.49 MG/DL (0.60-1.30); GFR ESTIMATED 36; LIPASE 27 U/L (8-78); MAGNESIUM 1.7 MG/DL (1.8-2.4); POTASSIUM 4.3 MMOL/L (3.6-5.0); SODIUM 135 MMOL/L (135-145); TOTAL PROTEIN 7.2 GM/DL (6.4-8.2)
[2017-12-03 18:42] LABS: GLUCOSE 879 MG/DL (70-105)
[2017-12-03] MEDS ORDERED: SCOPOLAMINE 1.5 MG (TRANSDERM-SCOP) PATCH TD ONE (18:45)
[2017-12-03 19:10] LABS: ABG BASE EXCESS -6.1 MMOL/L (-2.5-2.5); ABG OXYGEN SATURATION 98 % (94-100); ABG PCO2 31 MMHG (35-45); ABG PH 7.39 (7.37-7.43); ABG PO2 87 MMHG (79-93)
[2017-12-03 19:11] LABS: ALLENS TEST YES-POS; INSPIRED O2 ROOM AIR; PATIENT TEMP 98.2; VENTILATOR NO
[2017-12-03 20:24] VITALS: BP 186/79
[2017-12-03] MEDS ORDERED: inSUlin DETERMIR 1 UNIT/0.01 ML (LEVEMIR) CHARGE PER UNIT SQ ONE (21:30)
[2017-12-03] MEDS: NS IV 1000 ML 1,000 ML IV SCH (21:53)
[2017-12-03 22:11] VITALS: BP 147/72
[2017-12-03] MEDS: oxyCODONE/APAP 10/325MG (PERCOCET 10) TABLET PO PRN (22:30)
[2017-12-03] MEDS: GABAPENTIN 600 MG (NEURONTIN) TAB PO SCH (22:31)
[2017-12-04] VITALS (10 sets, daily range): BP systolic 139–179; BP diastolic 76–88
[2017-12-04] MEDS: diphenhydrAMINE 25 MG TAB (BENADRYL) PO PRN (00:58)
[2017-12-04] MEDS: NS IV 1000 ML 1,000 ML IV SCH ×2 (03:01→08:07)
[2017-12-04] MEDS: oxyCODONE/APAP 10/325MG (PERCOCET 10) TABLET PO PRN ×4 (04:54→20:42)
[2017-12-04 05:51] LABS: BASOPHILS # (AUTO) 0.1 10^3/uL (0.0-0.1); BASOPHILS % (AUTO) 1 % (0-10); EOSINOPHILS # (AUTO) 0.5 10^3/uL (0.0-0.3); EOSINOPHILS % (AUTO) 4 % (0-10); HEMATOCRIT 35 % (35-52); HEMOGLOBIN 12.1 G/DL (11.5-16.0); LYMPHOCYTES # (AUTO) 5.1 X 10^3 (1.0-4.0); LYMPHOCYTES % (AUTO) 42 % (12-44); MEAN CORPUSCULAR HEMOGLOBIN 30 PG (25-34); MEAN CORPUSCULAR HGB CONC 35 G/DL (32-36); MEAN CORPUSCULAR VOLUME 87 FL (80-99); MEAN PLATELET VOLUME 10.7 FL (7.4-10.4); MONOCYTES # (AUTO) 0.8 X 10^3 (0.0-1.0); MONOCYTES % (AUTO) 6 % (0-12); NEUTROPHILS # (AUTO) 5.6 X 10^3 (1.8-7.8); NEUTROPHILS % (AUTO) 46 % (42-75); PLATELET COUNT 229 10^3/uL (130-400); RED CELL DISTRIBUTION WIDTH 12.6 % (10.0-14.5); WHITE BLOOD COUNT 12.1 10^3/uL (4.3-11.0)
[2017-12-04 06:10] LABS: ALANINE AMINOTRANSFERASE 10 U/L (0-55); ALBUMIN 3.4 GM/DL (3.2-4.5); ALKALINE PHOSPHATASE 84 U/L (40-136); BILIRUBIN,TOTAL 0.4 MG/DL (0.1-1.0); BUN/CREATININE RATIO 13; CALCIUM 8.3 MG/DL (8.5-10.1); CARBON DIOXIDE 18 MMOL/L (21-32); CHLORIDE 114 MMOL/L (98-107); CREATININE SERUM 0.83 MG/DL (0.60-1.30); GFR ESTIMATED > 60; GLUCOSE 225 MG/DL (70-105); POTASSIUM 3.3 MMOL/L (3.6-5.0); SODIUM 141 MMOL/L (135-145); TOTAL PROTEIN 6.1 GM/DL (6.4-8.2)
[2017-12-04] MEDS: inSUlin (REGULAR) HUMAN 1 UNIT/0.01 ML (CHARGE PER UNIT) SC SCH ×5 (06:44→20:35)
[2017-12-04] MEDS ORDERED: KCL 20 MEQ TAB (K-DUR) PO NR (10:00)
[2017-12-04] MEDS: ASPIRIN E.C. 81 MG (ECOTRIN) TAB PO SCH (10:29)
[2017-12-04] MEDS: inSUlin DETERMIR 1 UNIT/0.01 ML (LEVEMIR) CHARGE PER UNIT SQ SCH ×2 (10:29→20:35)
[2017-12-04] MEDS: PANTOPRAZOLE 20 MG TABLET (PROTONIX) PO SCH (10:29)
[2017-12-04] MEDS: amLODIPine 5 MG (NORVASC) TAB PO SCH (10:29)
--- NOTE | 2017-12-04 11:27 | History & Physicial (CHS) ---
HPI History of Present Illness: 57 yo F that was recently admitted for uncontrolled DM and diagnosed with Influenza. Patient arrived in ER with blood sugars in the 800s. Patient states that she was taking insulin every hour and was unable to get it controlled. She states that she has not had anything to eat for the last 4 days other then clear diet. States that when she went home she continued to have nausea and vomiting. This AM she states she is still feeling weak and is scared to go home because she lives alone. Source: patient, old records Date seen by provider: Dec 04, 2017 Time Seen by Provider: 10:15 Attending Physician Alexx Rico MD PCP Fide Dyer DO Consult Date of Admission Dec 03, 2017 at 19:10 Home Medications Home Medications Reviewed patient Home Medication Reconciliation Form Allergies Coded Allergies: ketorolac (Verified Allergy, Severe, ANAPHYLAXIS, PT TAKES ASA AT HOME, ) ondansetron (Verified Allergy, Intermediate, RASH, 07/19/14) RASH/ HIVES exenatide (Verified Allergy, Unknown, NAUSEA, 07/19/14) NON STOP VOMITING latex (Verified Allergy, Unknown, RASH, 07/19/14) metoclopramide (Verified Allergy, Unknown, RESTLESS LEGS, 07/19/14) HZB-Thbqve-Hbsxuc Hx Patient Social History Living Status: Lives alone in house Alcohol Use: Denies Use Recreational Drug Use: No Smoking Status: Former Smoker Type Used: Cigarettes 2nd Hand Smoke Exposure: No Recent Foreign Travel: No Contact w/other who traveled: No Recent Hopitalizations: Yes Recent Infectious Disease Expo: No Physical Abuse Screen: No Sexual Abuse: No Immunizations Up To Date Tetanus Booster (TDap): Less than 5yrs Date of Pneumonia Vaccine: Dec 12, 2013 Date of Influenza Vaccine: Sep 07, 2017 Past Medical History Past Medical History 1. Diabetes Mellitus Type 2 w/ multiple hospitalizations for severe hyperglycemia w/o DKA, easily controlled on admission and administration of insulin. 2. Hypertension 3.Hyperlipidemia 4.Chronic Kidney Disease 5. Irritable Bowel Disorder 6. Fibromyalgia 7.Psoriasis 8.chronic neck and back pain- on chronic narcotics being decreased as outpatient 9. hx of blood clots in the upper extremities 10. Anxiety 11. Tobaccoism 12. 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 (reported "allergy" to reglan) PSH: 1.Renal stent 2.cholecystectomy 3.Laminectomy 5.ear tubes as a child Family Medical History Significant Family History: No Pertinent Family Hx Family History: Cancer of mouth 19 FATHER ( of esophogeal cancer.) Cardiovascular disease 19 MOTHER G8 BROTHER Completed stroke 19 FATHER G8 BROTHER Diabetes mellitus G8 BROTHER FH: lung cancer 19 MOTHER Hypertension 19 FATHER Kidney disease 19 FATHER Myocardial infarction 19 MOTHER G8 BROTHER Respiratory disorder No Family History of: AIDS Review of Systems (CHC) Constitutional: chills, fever, malaise, weakness EENTM: nose congestion, throat pain Respiratory: cough, dyspnea on exertion, No orthopnea, short of breath Cardiovascular: no symptoms reported, No chest pain, No edema, No palpitations Gastrointestinal: abdominal pain (epigastric pain), No constipation, No diarrhea, No nausea, No vomiting Genitourinary: no symptoms reported, No dysuria, No frequency, No hematuria Musculoskeletal: back pain (Chronic low back and neck pain) Skin: no symptoms reported, No lesions, No rash Psychiatric/Neurological: Anxiety Reviewed Test Results Reviewed Test Results Lab Laboratory Tests Test 12/03/17 19:05 12/04/17 05:23 12/04/17 05:24 12/04/17 12:00 Range/Units Blood Gas Puncture Site RT RAD Blood Gas Patient Temperature 98.2 Arterial Blood pH 7.39 7.37-7.43 Arterial Blood Partial Pressure CO2 31 L 35-45 MMHG Arterial Blood Partial Pressure O2 87 79-93 MMHG Arterial Blood HCO3 18 L 23-27 MMOL/L Arterial Blood Total CO2 19.0 L 21.0-31.0 MMOL/L Arterial Blood Oxygen Saturation 98 94-100 % Arterial Blood Base Excess -6.1 L -2.5-2.5 MMOL/L Antonio Test YES-POS Blood Gas Ventilator Setting NO Blood Gas Inspired Oxygen ROOM AIR Glucometer 242 H 282 H 70-110 MG/DL White Blood Count 12.1 H 4.3-11.0 10^3/uL Red Blood Count 4.00 L 4.35-5.85 10^6/uL Hemoglobin 12.1 11.5-16.0 G/DL Hematocrit 35 35-52 % Mean Corpuscular Volume 87 80-99 FL Mean Corpuscular Hemoglobin 30 25-34 PG Mean Corpuscular Hemoglobin Concent 35 32-36 G/DL Red Cell Distribution Width 12.6 10.0-14.5 % Platelet Count 229 130-400 10^3/uL Mean Platelet Volume 10.7 H 7.4-10.4 FL Neutrophils (%) (Auto) 46 42-75 % Lymphocytes (%) (Auto) 42 12-44 % Monocytes (%) (Auto) 6 0-12 % Eosinophils (%) (Auto) 4 0-10 % Basophils (%) (Auto) 1 0-10 % Neutrophils # (Auto) 5.6 1.8-7.8 X 10^3 Lymphocytes # (Auto) 5.1 H 1.0-4.0 X 10^3 Monocytes # (Auto) 0.8 0.0-1.0 X 10^3 Eosinophils # (Auto) 0.5 H 0.0-0.3 10^3/uL Basophils # (Auto) 0.1 0.0-0.1 10^3/uL Sodium Level 141 135-145 MMOL/L Potassium Level 3.3 L 3.6-5.0 MMOL/L Chloride Level 114 #H 98-107 MMOL/L Carbon Dioxide Level 18 L 21-32 MMOL/L Anion Gap 9 5-14 MMOL/L Blood Urea Nitrogen 11 7-18 MG/DL Creatinine 0.83 0.60-1.30 MG/DL Estimat Glomerular Filtration Rate > 60 BUN/Creatinine Ratio 13 Glucose Level 225 H 70-105 MG/DL Calcium Level 8.3 L 8.5-10.1 MG/DL Total Bilirubin 0.4 0.1-1.0 MG/DL Aspartate Amino Transf (AST/SGOT) 10 5-34 U/L Alanine Aminotransferase (ALT/SGPT) 10 0-55 U/L Alkaline Phosphatase 84 40-136 U/L Total Protein 6.1 L 6.4-8.2 GM/DL Albumin 3.4 3.2-4.5 GM/DL Test 12/04/17 15:59 Range/Units Glucometer 187 H 70-110 MG/DL Physical Exam-(CHC) Physical Exam Vital Signs VS - Last 72 Hours, by Label 12/03/17 12/03/17 12/03/17 12/03/17 17:27 20:20 20:24 20:25 Temp 99.0 99.0 99.6 Pulse 94 85 82 Resp 18 18 18 B/P (MAP) 179/94 (122) 186/79 (114) Pulse Ox 96 95 96 O2 Delivery Room Air Room Air Room Air 12/03/17 12/04/17 12/04/17 12/04/17 22:11 00:00 02:00 03:56 Temp 97.2 Pulse 74 78 64 66 Resp 20 19 19 18 B/P (MAP) 147/72 (97) 145/78 (100) 149/82 (104) 139/81 (100) Pulse Ox 96 97 94 92 O2 Delivery Room Air Room Air Room Air Room Air 12/04/17 12/04/17 12/04/17 12/04/17 06:00 08:31 09:00 10:15 Temp 98.2 99.3 99.5 Pulse 70 75 77 Resp 19 22 20 B/P (MAP) 141/79 (99) 144/82 (102) 147/76 (99) Pulse Ox 93 95 94 O2 Delivery Room Air Room Air Room Air Room Air 12/04/17 12/04/17 12:03 16:00 Temp 98.5 98.9 Pulse 64 72 Resp 16 20 B/P (MAP) 147/81 (103) 179/88 (118) Pulse Ox 94 98 O2 Delivery Room Air Room Air Capillary Refill : Less Than 3 Seconds General Appearance: WD/WN, no apparent distress, obese HEENT: PERRL/EOMI Neck: non-tender, full range of motion, supple, normal inspection Respiratory: chest non-tender, lungs clear, normal breath sounds, no respiratory distress, no accessory muscle use Cardiovascular: normal peripheral pulses, regular rate, rhythm, no edema, no murmur Gastrointestinal: normal bowel sounds, soft, tenderness (mild epigastric pain) Back: no CVA tenderness Extremities: normal range of motion, non-tender, normal inspection, no pedal edema, no calf tenderness, normal capillary refill Neurologic/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: 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, no motor/sensory deficits, alert, normal mood/affect, oriented x 3 Skin: normal color, warm/dry Lymphatic: no adenopathy Clinical Quality Measures DVT/VTE Risk/Contraindication: Risk Factor Score Per Nursin RFS Level Per Nursing on Admit: 2=Moderate Copy Copies To 1: Natalya LATIF Assessment/Plan Assessment/Plan Plan 57 yo F admitted for uncontrolled blood sugars in the 800s IDDM: Uncontrolled, Non compliance - Started back on home dose of insulin and blood sugars trended down rapidly - Advanced to ADA diet - No signs of acidosis - IVFs stopped this AM, encouraged PO hydration - Repeat labs in AM Influenza - Continue Tamiflu Acute Renal Failure - Resolved in AM with IV hydration Chronic pain - Continued on home pain medications FEN: ADA diet DVT PPX: Lovenox Dispo: Admit to Obs, plan to d/c in AM ALEXX RICO MD Dec 04, 2017 11:27
[2017-12-04] MEDS ORDERED: ACETAMINOPHEN 500 MG TAB (TYLENOL) PO PRN (17:45)
[2017-12-04] MEDS: GABAPENTIN 600 MG (NEURONTIN) TAB PO SCH (20:34)
[2017-12-04] MEDS ORDERED: ATORVASTATIN 40 MG (LIPITOR) TABLET PO SCH (21:00)
[2017-12-05] VITALS: BP 155/69
[2017-12-05] MEDS: diphenhydrAMINE 25 MG TAB (BENADRYL) PO PRN (00:09)
[2017-12-05] MEDS: oxyCODONE/APAP 10/325MG (PERCOCET 10) TABLET PO PRN ×3 (02:01→12:39)
[2017-12-05 04:17] VITALS: BP 134/80
[2017-12-05 05:19] LABS: BASOPHILS # (AUTO) 0.1 10^3/uL (0.0-0.1); BASOPHILS % (AUTO) 1 % (0-10); EOSINOPHILS # (AUTO) 0.6 10^3/uL (0.0-0.3); EOSINOPHILS % (AUTO) 6 % (0-10); HEMATOCRIT 34 % (35-52); HEMOGLOBIN 11.9 G/DL (11.5-16.0); LYMPHOCYTES # (AUTO) 4.3 X 10^3 (1.0-4.0); LYMPHOCYTES % (AUTO) 43 % (12-44); MEAN CORPUSCULAR HEMOGLOBIN 30 PG (25-34); MEAN CORPUSCULAR HGB CONC 35 G/DL (32-36); MEAN CORPUSCULAR VOLUME 88 FL (80-99); MEAN PLATELET VOLUME 10.3 FL (7.4-10.4); MONOCYTES # (AUTO) 0.6 X 10^3 (0.0-1.0); MONOCYTES % (AUTO) 6 % (0-12); NEUTROPHILS # (AUTO) 4.5 X 10^3 (1.8-7.8); NEUTROPHILS % (AUTO) 45 % (42-75); PLATELET COUNT 212 10^3/uL (130-400); RED BLOOD COUNT 3.92 10^6/uL (4.35-5.85); RED CELL DISTRIBUTION WIDTH 12.8 % (10.0-14.5); WHITE BLOOD COUNT 10.1 10^3/uL (4.3-11.0)
[2017-12-05 05:37] LABS: ALANINE AMINOTRANSFERASE 10 U/L (0-55); ALBUMIN 3.3 GM/DL (3.2-4.5); ALKALINE PHOSPHATASE 78 U/L (40-136); BILIRUBIN,TOTAL 0.2 MG/DL (0.1-1.0); BUN/CREATININE RATIO 20; CALCIUM 8.7 MG/DL (8.5-10.1); CARBON DIOXIDE 20 MMOL/L (21-32); CHLORIDE 111 MMOL/L (98-107); GFR ESTIMATED > 60; GLUCOSE 251 MG/DL (70-105); POTASSIUM 3.6 MMOL/L (3.6-5.0); SODIUM 140 MMOL/L (135-145); TOTAL PROTEIN 5.8 GM/DL (6.4-8.2)
[2017-12-05] MEDS: inSUlin (REGULAR) HUMAN 1 UNIT/0.01 ML (CHARGE PER UNIT) SC SCH ×2 (06:11→11:37)
[2017-12-05] MEDS: PANTOPRAZOLE 20 MG TABLET (PROTONIX) PO SCH (06:11)
[2017-12-05] MEDS: amLODIPine 5 MG (NORVASC) TAB PO SCH (07:46)
[2017-12-05] MEDS: ASPIRIN E.C. 81 MG (ECOTRIN) TAB PO SCH (07:46)
[2017-12-05] MEDS: inSUlin DETERMIR 1 UNIT/0.01 ML (LEVEMIR) CHARGE PER UNIT SQ SCH (07:48)
[2017-12-05 08:00] VITALS: BP 112/63
[2017-12-05 08:30] VITALS: BP 112/63
[2017-12-05] MEDS ORDERED: OSELTAMIVIR 75 MG (TAMIFLU) BOX OF 10 PO SCH (09:00)
[2017-12-05] MEDS ORDERED: diphenhydrAMINE 25 MG TAB (BENADRYL) PO NR (11:45)
[2017-12-05] MEDS ORDERED: PROMETHAZINE 25 MG (PHENERGAN) TAB PO NR (11:45)
--- NOTE | 2017-12-05 12:12 | Discharge Summary ---
Diagnosis/Chief Complaint Date of Admission Dec 03, 2017 at 19:10 Date of Discharge 12/05/17 Admission Diagnosis Admission Diagnosis Uncontrolled IDDM: Patient has long h/o non compliance and has been sick recently which has likely increased insulin need. Started patient on home insulin and blood sugars trended down to normal levels. Nausea: Resolved and eating PO diet Influenza A: Continued on Tamiflu from previous admission Acute Renal Failure: Resolved with IV hydration Chronic Pain: Continued on home pain meds Discharge Diagnosis See Above Chief Complaint/HPI Chief Complaint/HPI 57 yo F that was recently admitted for uncontrolled DM and diagnosed with Influenza. Patient arrived in ER with blood sugars in the 800s. Patient states that she was taking insulin every hour and was unable to get it controlled. She states that she has not had anything to eat for the last 4 days other then clear diet. States that when she went home she continued to have nausea and vomiting. This AM she states she is still feeling weak and is scared to go home because she lives alone. Discharge Summary-Simple/Stand Consultations None Discharge Physical Examination Allergies: Coded Allergies: ketorolac (Verified Allergy, Severe, ANAPHYLAXIS, PT TAKES ASA AT HOME, ) ondansetron (Verified Allergy, Intermediate, RASH, 07/19/14) RASH/ HIVES exenatide (Verified Allergy, Unknown, NAUSEA, 07/19/14) NON STOP VOMITING latex (Verified Allergy, Unknown, RASH, 07/19/14) metoclopramide (Verified Allergy, Unknown, RESTLESS LEGS, 07/19/14) Vitals & I&Os Vital Sign - Last 12Hours Date Time Temp Pulse Resp B/P (MAP) Pulse Ox O2 Delivery O2 Flow Rate FiO2 12/05/17 04:17 98.0 63 20 134/80 (98) 94 Room Air Intake and Output 12/05/17 00:00 Intake Total 2170 ml Balance 2170 ml General Appearance: Alert, Oriented X3, Cooperative, No Acute Distress, Other ( Obese) HEENT: Mucous Memb Moist/[place] Respiratory: Clear to Auscultation, Normal Air Movement Cardiovascular: Regular Rate, No Murmurs Abdominal: Normal Bowel Sounds, Soft, No Tenderness Extremities: No Edema, No Tenderness/Swelling Skin: No Rashes Neuro: Normal Gait, Normal Speech, Strength at 5/5 X4 Ext, Sensation Intact, Cranial Nerves 3-12 NL Psych/Mental Status: Mental Status NL, Other (Anxious ) Hospital Course See final discharge diagnosis. Pending Labs None Discussion & Recommendations See Admission Dx Discharge Condition at discharge Improved, stable Instructions to patient/family Please see electronic discharge instructions given to patient. Discharge Medications Reviewed and agree with Discharge Medication list on patient's Discharge Instruction sheet Clinical Quality Measures DVT/VTE Risk/Contraindication: Risk Factor Score Per Nursin RFS Level Per Nursing on Admit: 2=Moderate Copy Copies To 1: Natalya LATIF HOLLY R MD Dec 05, 2017 12:12
--- NOTE | 2017-12-05 12:19 | Discharge Instructions ---
Discharge [facility] Discharge Medications New, Converted or Re-Newed RX: Other (No new meds) Continued Medications: Amlodipine Besylate (Amlodipine Besylate) 5 Mg Tablet 5 MG PO DAILY, TAB Aspirin (Aspirin EC) 81 Mg Tablet.dr 81 MG PO DAILY, TAB Atorvastatin Calcium (Atorvastatin Calcium) 40 Mg Tablet 40 MG PO HS, TAB Diclofenac Sodium (Diclofenac Sodium) 75 Mg Tablet.dr 75 MG PO BID, TAB Diphenhydramine HCl (Benadryl) 25 Mg Capsule 50-75 MG PO HS PRN for SLEEP, CAP Gabapentin (Gabapentin) 300 Mg Capsule 300 MG PO BID PRN for FOOT PAIN, CAP Gabapentin (Gabapentin) 300 Mg Capsule 1200 MG PO HS, CAP TAKES 4 (300MG) CAPSULES Insulin Detemir (Levemir Flextouch) 100 Unit/1 Ml Insuln.pen 65 UNITS SQ BID, EA Insulin Lispro (Humalog Kwikpen) 100 Unit/1 Ml Insuln.pen SQ AC for SLIDING SCALE, EA SHE IS UNSURE OF HER SLIDING SCALE AND CAN NOT REMEMBER HOW MANY UNITS SHE TYPICALLY USES, SHE TESTS HER BLOOD SUGAR AND ENTERS HER CARBS AND HER METER TELLS HER HOW MANY UNITS OF INSULIN TO USE Linagliptin (Tradjenta) 5 Mg Tablet 5 MG PO DAILY, TAB LAST FILLED #90 08-02-17 Omeprazole (Omeprazole) 20 Mg Capsule.dr 20 MG PO DAILY, CAP Oseltamivir Phosphate (Tamiflu) 75 Mg Cap 75 MG PO BID for 5 Days, #1 CAP finish box of tamiflu you received from the Emergency Department on Admission- 11/30/17-you will have 8 pills left. Take one pill twice a day, in morning and at night Oxycodone HCl/Acetaminophen (Oxycodone-Acetaminophen 10-325) 1 Each Tablet 1 TAB PO EVERY 4-6 HOURS PRN for PAIN-MODERATE, TAB Patient Instructions Goal/Follow Up Appt: Keep your appt with Natalya Landry on Patient Instructions: - Make sure you take your insulin as prescribed - Make sure to complete your course of tamiflu Activity & Diet Discharge Diet: ADA Diet Activity as Tolerated: Yes Copy Copies To 1: [facility] SERVICES[facility]atal[facility] HOLLY R MD Dec 05, 2017 12:19
[2017-12-05 13:14] VITALS: BP 134/80
== END 2017-12-05 12:14 | disposition home or self-care (01) ==
LOC: EDUNIT# 17:27 → ER 17:28 → 4TH 19:10 → UNDOADMOB 19:10 → 4TH 20:24 → UNDODISOB 12-05 13:14
PROVIDERS: ADMIT Family Medicine; ATTEND Family Medicine
DX: E11.65 Type 2 diabetes mellitus with hyperglycemia (principal); Z79.4 Long term (current) use of insulin; J10.2 Influenza due to other identified influenza virus with gastrointestinal manifestations; N17.9 Acute kidney failure, unspecified; G89.29 Other chronic pain; Z88.8 Allergy status to other drugs, medicaments and biological substances; Z87.891 Personal history of nicotine dependence; E78.5 Hyperlipidemia, unspecified; M79.1 Myalgia; L40.9 Psoriasis, unspecified; K58.9 Irritable bowel syndrome, unspecified; M54.2 Cervicalgia; F11.90 Opioid use, unspecified, uncomplicated; Z91.19 Patient's noncompliance with other medical treatment and regimen
CPT/HCPCS: 36415; 80053; 80306; 80320; 81000; 82150; 82805; 82962; 83690; 83735; 85025; 99284

== ENCOUNTER 2018-01-05 07:45 | Emergency (ER) | payer MEDICARE | END 2018-01-05 07:47 | disposition left against medical advice (07) | LOC: EDUNIT# 07:45 → ER 07:47 | DX: R73.9 Hyperglycemia, unspecified (principal) ==

== ENCOUNTER 2018-01-13 11:42 | Observation (INO) | payer MEDICARE ==
[~2018-01-13] VITALS: Ht 152.4 cm; Wt 82.6 kg
[2018-01-13 13:20] VITALS: BP 106/46
[2018-01-13 13:58] LABS: BASOPHILS # (AUTO) 0.1 10^3/uL (0.0-0.1); BASOPHILS % (AUTO) 1 % (0-10); EOSINOPHILS # (AUTO) 0.8 10^3/uL (0.0-0.3); EOSINOPHILS % (AUTO) 9 % (0-10); HEMATOCRIT 32 % (35-52); HEMOGLOBIN 11.1 G/DL (11.5-16.0); LYMPHOCYTES # (AUTO) 3.7 X 10^3 (1.0-4.0); LYMPHOCYTES % (AUTO) 40 % (12-44); MEAN CORPUSCULAR HEMOGLOBIN 30 PG (25-34); MEAN CORPUSCULAR HGB CONC 34 G/DL (32-36); MEAN CORPUSCULAR VOLUME 89 FL (80-99); MEAN PLATELET VOLUME 10.5 FL (7.4-10.4); MONOCYTES # (AUTO) 0.6 X 10^3 (0.0-1.0); MONOCYTES % (AUTO) 6 % (0-12); NEUTROPHILS # (AUTO) 4.1 X 10^3 (1.8-7.8); NEUTROPHILS % (AUTO) 45 % (42-75); PLATELET COUNT 288 10^3/uL (130-400); RED BLOOD COUNT 3.65 10^6/uL (4.35-5.85); RED CELL DISTRIBUTION WIDTH 12.9 % (10.0-14.5); WHITE BLOOD COUNT 9.3 10^3/uL (4.3-11.0)
[2018-01-13] MEDS: NS IV 1000 ML 1,000 ML IV SCH ×3 (13:59→21:04)
[2018-01-13 14:00] VITALS: BP 151/50
[2018-01-13] MEDS ORDERED: cefTRIAXone INJECTION 1,000 MG in NS (IVPB) 50 ML IV SCH (14:00)
[2018-01-13 14:18] LABS: ALBUMIN 3.3 GM/DL (3.2-4.5); BILIRUBIN,TOTAL 0.2 MG/DL (0.1-1.0); CALCIUM 8.2 MG/DL (8.5-10.1); CREATININE SERUM 1.25 MG/DL (0.60-1.30); MAGNESIUM 1.5 MG/DL (1.8-2.4); POTASSIUM 4.5 MMOL/L (3.6-5.0); TOTAL PROTEIN 5.8 GM/DL (6.4-8.2)
[2018-01-13] MEDS ORDERED: PROM25SU44 RC (14:44)
[2018-01-13] MEDS ORDERED: PROM25TA14 PO (14:44)
[2018-01-13] MEDS ORDERED: NITR100C10 PO (14:44)
[2018-01-13] MEDS ORDERED: CEPH-507 PO (14:44)
[2018-01-13] MEDS ORDERED: VARE1TAB22 PO (14:55)
[2018-01-13] MEDS ORDERED: DIPH25CA79 PO (14:55)
[2018-01-13] MEDS ORDERED: PHEN97.511 PO (14:57)
[2018-01-13 15:00] VITALS: BP 120/98
[2018-01-13] MEDS ORDERED: PROMETHAZINE 25 MG (PHENERGAN) SUPP RC PRN (15:00)
[2018-01-13] MEDS ORDERED: NON-FORMULARY MEDICATION 1 EA EA (Diphenhydramine HCl (Benadryl) 0 MG) PO PRN (15:00)
[2018-01-13] MEDS ORDERED: PROMETHAZINE 25 MG (PHENERGAN) TAB PO PRN (15:00)
[2018-01-13] MEDS ORDERED: GABAPENTIN 300 MG (NEURONTIN) CAP PO PRN (15:00)
[2018-01-13] MEDS ORDERED: PATIENT MAY USE OWN MEDS, ALL MC SCH (15:15)
[2018-01-13] MEDS: ENOXAPARIN 40 MG/0.4 ML (LOVENOX) SYR SC SCH (15:17)
[2018-01-13 15:24] LABS: BILIRUBIN,URINE NEGATIVE (NEGATIVE); CLARITY,URINE CLEAR; COLOR,URINE YELLOW; GLUCOSE, URINE (UA) 4+ (NEGATIVE); KETONES,URINE NEGATIVE (NEGATIVE); LEUKOCYTE ESTERASE ,URINE 2+ (NEGATIVE); NITRITE,URINE NEGATIVE (NEGATIVE); PH,URINE 5 (5-9); PROTEIN,URINE 3+ (NEGATIVE); UROBILINOGEN,URINE NORMAL (NORMAL)
[2018-01-13 15:37] LABS: AMPHETAMINE SCREEN, URINE NEGATIVE (NEGATIVE); BARBITURATE SCREEN URINE NEGATIVE (NEGATIVE); BENZODIAZEPINES SCREEN URINE NEGATIVE (NEGATIVE); CANNABINOID SCREEN, URINE NEGATIVE (NEGATIVE); COCAINE SCREEN URINE NEGATIVE (NEGATIVE); METHADONE STAT NEGATIVE (NEGATIVE); METHAMPHETAMINE SCREEN URINE S NEGATIVE (NEGATIVE); OPIATE SCREEN URINE NEGATIVE (NEGATIVE); OXYCODONE STAT POSITIVE (NEGATIVE); PROPOXYPHENE STAT NEGATIVE (NEGATIVE); TRICYCLIC ANTIDEPRESSANTS SCRE NEGATIVE (NEGATIVE)
[2018-01-13 15:40] LABS: BACTERIA,URINE TRACE /HPF; RBC,URINE RARE /HPF; RENAL EPITHELIAL CELLS,URINE 0-2 /HPF
[2018-01-13] MEDS ORDERED: diphenhydrAMINE 25 MG TAB (BENADRYL) PO PRN ×2 (15:45)
[2018-01-13] MEDS: oxyCODONE/APAP 10/325MG (PERCOCET 10) TABLET PO PRN ×2 (15:56→21:00)
[2018-01-13] MEDS: MAGNESIUM 1 GM/100 ML IVPB 100 ML IV SCH ×4 (16:17→20:58)
--- NOTE | 2018-01-13 16:35 | History & Physicial (CHS) ---
HPI History of Present Illness: This is a 57 yo female w/ history of uncontrolled DM w/ hyperglycemia. Pt was seen earlier in the week in Walk-In clinic for UTI, initially she was started on Macrobid. Urine culture grew E coli which was -sensitive. Her antibiotics were changed to Keflex, which she has taken for a couple of days. Pt was seen by her PCP, Natalya Landry APRN today for f/u. Labs which were drawn previously showed a Cr of 2 which was elevated compared to baseline. She has been having increasingly elevated BS per her report. Pt sees Dr. Huertas but continues to have chronically elevated BS, last A1c was 9.7%. Last admission was in Nov 2017 for BS 800, BS improved w/ IVF and restarting home insulin. Pt c/o of nausea/vomiting and chronic pain for which she is seen by Dr. Alcantara. She has been unable to tolerated her po pain medication due to the nausea and reports the nausea will continue to get worse if her pain is not well controlled. Pt is requesting IV Phenergan as she reports allergy to all other anti-emetics. Source: patient Exam Limitations: no limitations Date seen by provider: Jan 13, 2018 Time Seen by Provider: 14:00 Attending Physician Mary Guadarrama DO PCP Windy Dyer DO Consult Date of Admission Jan 13, 2018 at 13:00 Home Medications Home Medications Reviewed patient Home Medication Reconciliation Form Allergies Coded Allergies: ketorolac (Verified Allergy, Severe, ANAPHYLAXIS, PT TAKES ASA AT HOME, ) ondansetron (Verified Allergy, Intermediate, RASH, 07/19/14) RASH/ HIVES exenatide (Verified Allergy, Unknown, NAUSEA, 07/19/14) NON STOP VOMITING latex (Verified Allergy, Unknown, RASH, 07/19/14) metoclopramide (Verified Allergy, Unknown, RESTLESS LEGS, 07/19/14) [id number] Hx Patient Social History Alcohol Use: Rarely Uses Recreational Drug Use: No Smoking Status: Current Everyday Smoker Type Used: Cigarettes 2nd Hand Smoke Exposure: No Recent Foreign Travel: No Contact w/other who traveled: No Recent Hopitalizations: Yes Recent Infectious Disease Expo: No Physical Abuse Screen: No Sexual Abuse: No Immunizations Up To Date Tetanus Booster (TDap): Less than 5yrs Date of Pneumonia Vaccine: Dec 12, 2013 Date of Influenza Vaccine: Sep 07, 2017 Past Medical History Past Medical History 1. Diabetes Mellitus Type 2 w/ multiple hospitalizations for severe hyperglycemia w/o DKA, easily controlled on admission and administration of insulin. 2. Hypertension 3.Hyperlipidemia 4.Chronic Kidney Disease 5. Irritable Bowel Disorder 6. Fibromyalgia 7.Psoriasis 8.chronic neck and back pain- on chronic narcotics being decreased as outpatient 9. hx of blood clots in the upper extremities 10. Anxiety 11. Tobaccoism 12. 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 (reported "allergy" to reglan) PSH: 1.Renal stent 2.cholecystectomy 3.Laminectomy 5.ear tubes as a child Family Medical History Significant Family History: No Pertinent Family Hx Family History: Cancer of mouth 19 FATHER ( of esophogeal cancer.) Cardiovascular disease 19 MOTHER G8 BROTHER Completed stroke 19 FATHER G8 BROTHER Diabetes mellitus G8 BROTHER FH: lung cancer 19 MOTHER Hypertension 19 FATHER Kidney disease 19 FATHER Myocardial infarction 19 MOTHER G8 BROTHER Respiratory disorder Review of Systems (CHC) Constitutional: see HPI Respiratory: no symptoms reported Cardiovascular: no symptoms reported Gastrointestinal: see HPI Musculoskeletal: see HPI Reviewed Test Results Reviewed Test Results Lab Laboratory Tests 01/13/18 13:50: White Blood Count 9.3, Red Blood Count 3.65L, Hemoglobin 11.1L, Hematocrit 32L, Mean Corpuscular Volume 89, Mean Corpuscular Hemoglobin 30, Mean Corpuscular Hemoglobin Concent 34, Red Cell Distribution Width 12.9, Platelet Count 288, Mean Platelet Volume 10.5H, Neutrophils (%) (Auto) 45, Lymphocytes (%) (Auto) 40 , Monocytes (%) (Auto) 6, Eosinophils (%) (Auto) 9, Basophils (%) (Auto) 1, Neutrophils # (Auto) 4.1, Lymphocytes # (Auto) 3.7, Monocytes # (Auto) 0.6, Eosinophils # (Auto) 0.8H, Basophils # (Auto) 0.1, Sodium Level 136, Potassium Level 4.5, Chloride Level 109H, Carbon Dioxide Level 20L, Anion Gap 7, Blood Urea Nitrogen 16, Creatinine 1.25, Estimat Glomerular Filtration Rate 44, BUN/ Creatinine Ratio 13, Glucose Level 397H, Calcium Level 8.2L, Magnesium Level 1.5L, Total Bilirubin 0.2, Aspartate Amino Transf (AST/SGOT) 8, Alanine Aminotransferase (ALT/SGPT) 8, Alkaline Phosphatase 73, Total Protein 5.8L, Albumin 3.3 01/13/18 15:10: Urine Color YELLOW, Urine Clarity CLEAR, Urine pH 5, Urine Specific [place] 1.020, Urine Protein 3+H, Urine Glucose (UA) 4+H, Urine Ketones NEGATIVE, Urine Nitrite NEGATIVE, Urine Bilirubin NEGATIVE, Urine Urobilinogen NORMAL, Urine Leukocyte Esterase 2+H, Urine RBC (Auto) NEGATIVE, Urine RBC RARE, Urine WBC 5- 10H, Urine Squamous Epithelial Cells 5-10, Urine Renal Epithelial Cells 0-2, Urine Crystals NONE, Urine Bacteria TRACE, Urine Casts NONE, Urine Mucus NEGATIVE, Urine Culture Indicated YES, Urine Opiates Screen NEGATIVE, Urine Oxycodone Screen POSITIVEH, Urine Methadone Screen NEGATIVE, Urine Propoxyphene Screen NEGATIVE, Urine Barbiturates Screen NEGATIVE, Ur Tricyclic Antidepressants Screen NEGATIVE, Urine Phencyclidine Screen NEGATIVE, Urine Amphetamines Screen NEGATIVE, Urine Methamphetamines Screen NEGATIVE, Urine Benzodiazepines Screen NEGATIVE, Urine Cocaine Screen NEGATIVE, Urine Cannabinoids Screen NEGATIVE Physical Exam-([facility]) Physical Exam Vital Signs VS - Last 72 Hours, by Label 01/13/18 01/13/18 01/13/18 01/13/18 13:20 13:26 14:00 15:00 Temp 97.8 Pulse 69 71 74 80 Resp 14 17 25 B/P (MAP) 106/46 (66) 151/50 (83) 120/98 (105) Pulse Ox 95 97 95 O2 Delivery Room Air Room Air Room Air Capillary Refill : General Appearance: WD/WN, no apparent distress HEENT: PERRL/EOMI Respiratory: lungs clear, normal breath sounds Cardiovascular: regular rate, rhythm Gastrointestinal: non tender, soft Extremities: no pedal edema Neurologic/Psychiatric: alert, normal mood/affect, oriented x 3 Skin: normal color, warm/dry Clinical Quality Measures DVT/VTE Risk/Contraindication: Risk Factor Score Per Nursin RFS Level Per Nursing on Admit: 4+=Very High Assessment/Plan Assessment/Plan Admission Dx 1. DM Type 2 w/ hyperglycemia 2. LANE 3. UTI - E.coli 4. Nausea/vomiting 5. Chronic Pain Plan 1. DM Type 2 w/ hyperglycemia - Pt admitted directly from the clinic w/ concern about severe hyperglycemia and possible DKA; status moved to observation and pt stable to be on the medical floor - initial labs on admission show BS of 397 w/o evidence of DKA or hyperosmolar non-ketotic hyperglycemia - will give IVF and restart home insulin regimen 2. LANE - Cr on admission 1.25 which is improved from OP labs - IVF 3. UTI - E.coli - pt initially started on Macrobid then changed to Keflex, unsure why as E coli was pansensitive - will repeat UA/culture, tx w/ Rocephin while admitted. 4. Nausea/vomiting - restart home Phenergan suppositories 5. Chronic Pain - restart home pain medication - oxycodone/APAP 10/325 q 6h prn WINDY DYER DO Jan 13, 2018 16:35
[2018-01-13 20:00] VITALS: BP 129/53
[2018-01-13] MEDS: inSUlin DETERMIR 1 UNIT/0.01 ML (LEVEMIR) CHARGE PER UNIT SQ SCH (20:59)
[2018-01-13] MEDS: inSUlin ASPART (NovoLOG) 1 UNIT/0.01 ML (CHARGE PER UNIT) SC SCH (20:59)
[2018-01-13] MEDS ORDERED: GABAPENTIN 300 MG (NEURONTIN) CAP PO SCH (21:00)
[2018-01-13] MEDS ORDERED: NON-FORMULARY MEDICATION 1 EA EA (Varenicline Tartrate (Chantix) 1 MG) PO SCH (21:00)
[2018-01-13] MEDS ORDERED: INSULIN DETEMIR 58 UNIT SQ SCH (21:00)
[2018-01-13] MEDS ORDERED: ATORVASTATIN 40 MG (LIPITOR) TABLET PO SCH (21:00)
[2018-01-14] VITALS: BP 147/75
[2018-01-14] MEDS: NS IV 1000 ML 1,000 ML IV SCH ×4 (00:32→10:16)
[2018-01-14] MEDS: oxyCODONE/APAP 10/325MG (PERCOCET 10) TABLET PO PRN ×3 (01:57→11:05)
[2018-01-14 04:00] VITALS: BP 156/63
[2018-01-14 05:28] LABS: BUN/CREATININE RATIO 16; CALCIUM 8.2 MG/DL (8.5-10.1); CARBON DIOXIDE 20 MMOL/L (21-32); CHLORIDE 110 MMOL/L (98-107); CREATININE SERUM 0.91 MG/DL (0.60-1.30); GFR ESTIMATED > 60; GLUCOSE 336 MG/DL (70-105); MAGNESIUM 2.2 MG/DL (1.8-2.4); POTASSIUM 4.7 MMOL/L (3.6-5.0); SODIUM 137 MMOL/L (135-145)
[2018-01-14] MEDS ORDERED: oxyCODONE/APAP 10/325MG (PERCOCET 10) TABLET PO ONE (06:00)
[2018-01-14] MEDS: inSUlin ASPART (NovoLOG) 1 UNIT/0.01 ML (CHARGE PER UNIT) SC SCH ×3 (06:07→14:24)
[2018-01-14] MEDS ORDERED: LINAGLIPTIN (TRADJENTA) 5 MG TABLET PO SCH (07:00)
[2018-01-14] MEDS ORDERED: PANTOPRAZOLE 20 MG TABLET (PROTONIX) PO SCH (07:00)
[2018-01-14 08:06] VITALS: BP 110/41
[2018-01-14] MEDS: inSUlin DETERMIR 1 UNIT/0.01 ML (LEVEMIR) CHARGE PER UNIT SQ SCH (08:08)
[2018-01-14] MEDS ORDERED: ASPIRIN E.C. 81 MG (ECOTRIN) TAB PO SCH (09:00)
[2018-01-14] MEDS ORDERED: OMEPRAZOLE 20 MG (PriLOSEC) CAP NON-FORMULARY PO SCH (09:00)
[2018-01-14] MEDS ORDERED: amLODIPine 5 MG (NORVASC) TAB PO SCH (09:00)
[2018-01-14] MEDS ORDERED: cefTRIAXone INJECTION 1,000 MG in NS (IVPB) 50 ML IV SCH (11:30)
[2018-01-14 12:00] VITALS: BP 138/91
[2018-01-14] MEDS: ENOXAPARIN 40 MG/0.4 ML (LOVENOX) SYR SC SCH (14:23)
--- NOTE | 2018-01-14 14:56 | Discharge Summary ---
Diagnosis/Chief Complaint Date of Admission Jan 13, 2018 at 13:00 Date of Discharge 01/14/18 Admission Diagnosis Admission Diagnosis Hyperglycemia Nausea E coli UTI present on admission Discharge Diagnosis 1. DM Type 2 w/ hyperglycemia - Pt admitted directly from the clinic w/ concern about severe hyperglycemia and possible DKA; status moved to observation and pt stable to be on the medical floor - initial labs on admission show BS of 397 w/o evidence of DKA or hyperosmolar non-ketotic hyperglycemia - will give IVF and restart home insulin regimen 2. LANE - Cr on admission 1.25 which is improved from OP labs - IVF 3. UTI - E.coli - pt initially started on Macrobid then changed to Keflex, unsure why as E coli was pansensitive - will repeat UA/culture, tx w/ Rocephin while admitted. 01/14 -after further review, suspect that macrobid was changed to Keflex due to labs that showed LANE, a setting in which macrobid is not a first choice therapy -pt instructed to resume Keflex on discharge -in hospital UA showed no evidence of infection, prelim culture result with no growth to date 4. Nausea/vomiting - restart home Phenergan suppositories 5. Chronic Pain - restart home pain medication - oxycodone/APAP 10/325 q 6h prn 6. Heart Murmur - I-II/ murmur noted on exam, pt reports she has not been told this before, no chest pain or pressure, shortness of breath or edema Chief Complaint/HPI Chief Complaint/HPI This is a 57 yo female w/ history of uncontrolled DM w/ hyperglycemia. Pt was seen earlier in the week in Walk-In clinic for UTI, initially she was started on Macrobid. Urine culture grew E coli which was -sensitive. Her antibiotics were changed to Keflex, which she has taken for a couple of days. Pt was seen by her PCP, Natalya Landry APRN today for f/u. Labs which were drawn previously showed a Cr of 2 which was elevated compared to baseline. She has been having increasingly elevated BS per her report. Pt sees Dr. Huertas but continues to have chronically elevated BS, last A1c was 9.7%. Last admission was in Nov 2017 for BS 800, BS improved w/ IVF and restarting home insulin. Pt c/o of nausea/vomiting and chronic pain for which she is seen by Dr. Alcantara. She has been unable to tolerated her po pain medication due to the nausea and reports the nausea will continue to get worse if her pain is not well controlled. Pt is requesting IV Phenergan as she reports allergy to all other anti-emetics. Discharge Summary-OBS Procedures None. Consultations Discharge Physical Examination Allergies: Coded Allergies: ketorolac (Verified Allergy, Severe, ANAPHYLAXIS, PT TAKES ASA AT HOME, ) ondansetron (Verified Allergy, Intermediate, RASH, 07/19/14) RASH/ HIVES exenatide (Verified Allergy, Unknown, NAUSEA, 07/19/14) NON STOP VOMITING latex (Verified Allergy, Unknown, RASH, 07/19/14) metoclopramide (Verified Allergy, Unknown, RESTLESS LEGS, 07/19/14) Vitals & I&Os Intake and Output 01/14/18 00:00 Intake Total 720 ml Output Total 1205 ml Balance -485 ml Vital Sign - Last 12Hours Date Time Temp Pulse Resp B/P (MAP) Pulse Ox O2 Delivery O2 Flow Rate FiO2 01/14/18 12:00 100.4 76 16 138/91 (107) 96 Room Air General Appearance: Alert, Oriented X3, Cooperative, No Acute Distress HEENT: Atraumatic, EOMI, Mucous Memb Moist/[place] Respiratory: Clear to Auscultation Cardiovascular: Regular Rate, Normal S1, Normal S2, Other (I-II/, best heard at RSB) Abdominal: Normal Bowel Sounds, Soft, No Tenderness Extremities: No Cyanosis, No Edema Skin: No Rashes, No Significant Lesion Neuro: Normal Speech, Normal Tone, Sensation Intact, Cranial Nerves 3-12 NL Psych/Mental Status: Mental Status NL, Mood NL Hospital Course Labs Laboratory Tests 01/13/18 15:10: Urine Color YELLOW, Urine Clarity CLEAR, Urine pH 5, Urine Specific [place] 1.020, Urine Protein 3+H, Urine Glucose (UA) 4+H, Urine Ketones NEGATIVE, Urine Nitrite NEGATIVE, Urine Bilirubin NEGATIVE, Urine Urobilinogen NORMAL, Urine Leukocyte Esterase 2+H, Urine RBC (Auto) NEGATIVE, Urine RBC RARE, Urine WBC 5- 10H, Urine Squamous Epithelial Cells 5-10, Urine Renal Epithelial Cells 0-2, Urine Crystals NONE, Urine Bacteria TRACE, Urine Casts NONE, Urine Mucus NEGATIVE, Urine Culture Indicated YES, Urine Opiates Screen NEGATIVE, Urine Oxycodone Screen POSITIVEH, Urine Methadone Screen NEGATIVE, Urine Propoxyphene Screen NEGATIVE, Urine Barbiturates Screen NEGATIVE, Ur Tricyclic Antidepressants Screen NEGATIVE, Urine Phencyclidine Screen NEGATIVE, Urine Amphetamines Screen NEGATIVE, Urine Methamphetamines Screen NEGATIVE, Urine Benzodiazepines Screen NEGATIVE, Urine Cocaine Screen NEGATIVE, Urine Cannabinoids Screen NEGATIVE 01/13/18 20:50: Glucometer 585*H 01/14/18 05:00: Sodium Level 137, Potassium Level 4.7, Chloride Level 110H, Carbon Dioxide Level 20L, Anion Gap 7, Blood Urea Nitrogen 15, Creatinine 0.91, Estimat Glomerular Filtration Rate > 60, BUN/Creatinine Ratio 16, Glucose Level 336H, Calcium Level 8.2L, Magnesium Level 2.2 01/14/18 09:48: Glucometer 278H 01/14/18 14:14: Glucometer 249H Microbiology 01/13/18 Urine Culture - Preliminary, Resulted NO GROWTH Discharge Instructions to patient/family Please see electronic discharge instructions given to patient. Discharge Medications Reviewed and agree with Discharge Medication list on patient's Discharge Instruction sheet Clinical Quality Measures DVT/VTE Risk/Contraindication: Risk Factor Score Per Nursin RFS Level Per Nursing on Admit: 4+=Very High Copy Copies To 1: [facility]/JAVIER RIDER DO Jan 14, 2018 14:56
--- NOTE | 2018-01-14 15:00 | Discharge Instructions ---
Discharge [facility] Discharge Medications New, Converted or Re-Newed RX: Other (no new rx) Continued Medications: Amlodipine Besylate (Amlodipine Besylate) 5 Mg Tablet 5 MG PO DAILY, TAB Aspirin (Aspirin EC) 81 Mg Tablet.dr 81 MG PO DAILY, TAB Atorvastatin Calcium (Atorvastatin Calcium) 40 Mg Tablet 40 MG PO HS, TAB Cephalexin (Keflex) 500 Mg Capsule 500 MG PO Q12H for 10 Days, CAP 10 DAY SUPPLY FILLED 01-10-18 Diphenhydramine HCl (Benadryl) 25 Mg Capsule 50-75 MG PO HS PRN for SLEEP, CAP Diphenhydramine HCl (Benadryl) 25 Mg Capsule 25 MG PO Q6H PRN for WHEN TAKING PROMETHAZINE, CAP TAKES WITH PROMETHAZINE TO HELP WITH THE RESTLESS LEGS CAUSED BY PROMETHAZINE Gabapentin (Gabapentin) 300 Mg Capsule 300 MG PO BID PRN for FOOT PAIN, CAP Gabapentin (Gabapentin) 300 Mg Capsule 1200 MG PO HS, CAP TAKES 4 (300MG) CAPSULES Insulin Detemir (Levemir Flextouch) 100 Unit/1 Ml Insuln.pen 58 UNITS SQ BID, EA Insulin Lispro (Humalog Kwikpen) 100 Unit/1 Ml Insuln.pen SQ AC for SLIDING SCALE, EA SHE IS UNSURE OF HER SLIDING SCALE AND CAN NOT REMEMBER HOW MANY UNITS SHE TYPICALLY USES, SHE TESTS HER BLOOD SUGAR AND ENTERS HER CARBS AND HER METER TELLS HER HOW MANY UNITS OF INSULIN TO USE Linagliptin (Tradjenta) 5 Mg Tablet 5 MG PO DAILY, TAB Omeprazole (Omeprazole) 20 Mg Capsule.dr 20 MG PO DAILY, CAP Oxycodone HCl/Acetaminophen (Oxycodone-Acetaminophen 10-325) 1 Each Tablet 1 TAB PO EVERY 4-6 HOURS PRN for PAIN-MODERATE, TAB Phenazopyridine HCl (Azo Urinary Pain Relief) 97.5 Mg Tablet 2 TAB PO TID PRN for URINARY PAIN, TAB Promethazine HCl (Promethazine Suppository) 25 Mg Supp.rect 12.5 MG RC Q6H PRN for NAUSEA/VOMITING-2ND LINE, SUPP.RECT Promethazine HCl (Promethazine Tablet) 25 Mg Tablet 25 MG PO Q6H PRN for NAUSEA/VOMITING-2ND LINE, TAB Varenicline Tartrate (Chantix) 1 Mg Tablet 1 MG PO BID, TAB Patient Instructions Patient Instructions Take medications as prescribed Keep follow up appt Goal/Follow Up Appt: 01/18/18 at 1:20 PM with Irvin Landry APRN Return to The Hospital For: chest pain or pressure, shortness of breath out of normal for patient, nausea or vomiting that makes you unable to keep down ice chips and lasts more than 12-24 hours, if directed by ch[employer] and silverware salesperson provider or any other emergent complaints or concerns. Activity & Diet Discharge Diet: ADA Diet Activity as Tolerated: Yes Copy Copies To 1: [facility]/JAVIER RIDER DO Jan 14, 2018 15:00
[2018-01-15] MEDS ORDERED: MEPERIDINE (DEMEROL) INJ 50 MG/ML ONE ×2 (12:57→13:06)
== END 2018-01-14 14:58 | disposition home or self-care (01) ==
LOC: ICU 13:00 → INTOOBSV 13:00 → 4TH 01-14 09:05
PROVIDERS: ADMIT Family Medicine; ATTEND Family Medicine
DX: E11.65 Type 2 diabetes mellitus with hyperglycemia (principal); N17.9 Acute kidney failure, unspecified; N39.0 Urinary tract infection, site not specified; B96.20 Unspecified Escherichia coli [E. coli] as the cause of diseases classified elsewhere; R11.2 Nausea with vomiting, unspecified; G89.29 Other chronic pain; R01.1 Cardiac murmur, unspecified; F17.210 Nicotine dependence, cigarettes, uncomplicated; I12.9 Hypertensive chronic kidney disease with stage 1 through stage 4 chronic kidney disease, or unspecified chronic kidney disease; E78.5 Hyperlipidemia, unspecified; N18.9 Chronic kidney disease, unspecified; M79.7 Fibromyalgia; M54.2 Cervicalgia; Z86.718 Personal history of other venous thrombosis and embolism; F41.9 Anxiety disorder, unspecified; Z88.8 Allergy status to other drugs, medicaments and biological substances
CPT/HCPCS: 36415; 80048; 80053; 80306; 81000; 82962; 83735; 85025; 87088

== ENCOUNTER 2018-01-18 14:37 | Emergency (ER) | payer MEDICARE ==
[~2018-01-18] VITALS: Ht 152.4 cm; Wt 76.2 kg
[~2018-01-18 14:37] MED LIST changes: +CEPH-507 PO; +NITR100C10 PO; +PHEN97.511 PO; +VARE1TAB22 PO
[2018-01-18] MEDS ORDERED: NS IV 1000 ML 1,000 ML IV ONE ×2 (15:19→17:51)
[2018-01-18] MEDS ORDERED: PROMETHAZINE INJ 25 MG/ML (PHENERGAN) AMP IVP ONE ×2 (15:30→18:45)
--- NOTE | 2018-01-18 15:37 | Diagnostic Imaging Report ---
INDICATION: Chest pain. COMPARISON: 11/30/2017 FINDINGS: Single frontal view of the chest demonstrates normal heart size and pulmonary vascularity. The lungs are well aerated and clear. No large pleural effusion or pneumothorax is seen. The visualized osseous structures show no acute abnormalities. Right internal jugular Port-A-Cath is only partially visualized, but appears stable in position. IMPRESSION: 1. No acute cardiopulmonary process. Dictated by: Dictated on workstation # [id number]
[2018-01-18] MEDS ORDERED: diphenhydrAMINE 50 MG/ML INJ (BENADRYL) ONE (15:48)
[2018-01-18 15:57] LABS: BASOPHILS # (AUTO) 0.1 10^3/uL (0.0-0.1); BASOPHILS % (AUTO) 1 % (0-10); EOSINOPHILS # (AUTO) 0.6 10^3/uL (0.0-0.3); EOSINOPHILS % (AUTO) 4 % (0-10); HEMATOCRIT 41 % (35-52); HEMOGLOBIN 14.4 G/DL (11.5-16.0); LYMPHOCYTES # (AUTO) 4.8 X 10^3 (1.0-4.0); LYMPHOCYTES % (AUTO) 36 % (12-44); MEAN CORPUSCULAR HEMOGLOBIN 31 PG (25-34); MEAN CORPUSCULAR HGB CONC 35 G/DL (32-36); MEAN CORPUSCULAR VOLUME 88 FL (80-99); MEAN PLATELET VOLUME 10.1 FL (7.4-10.4); MONOCYTES # (AUTO) 0.8 X 10^3 (0.0-1.0); MONOCYTES % (AUTO) 6 % (0-12); NEUTROPHILS # (AUTO) 7.1 X 10^3 (1.8-7.8); NEUTROPHILS % (AUTO) 53 % (42-75); PLATELET COUNT 353 10^3/uL (130-400); RED BLOOD COUNT 4.71 10^6/uL (4.35-5.85); RED CELL DISTRIBUTION WIDTH 13.3 % (10.0-14.5); WHITE BLOOD COUNT 13.5 10^3/uL (4.3-11.0)
[2018-01-18] MEDS ORDERED: diphenhydrAMINE 50 MG/ML INJ (BENADRYL) IVP ONE (16:00)
[2018-01-18 16:08] LABS: PROTHROMBIN TIME PATIENT 13.5 SEC (12.2-14.7)
[2018-01-18 16:18] LABS: ALANINE AMINOTRANSFERASE 12 U/L (0-55); ALBUMIN 4.3 GM/DL (3.2-4.5); ALKALINE PHOSPHATASE 107 U/L (40-136); BILIRUBIN,TOTAL 0.5 MG/DL (0.1-1.0); BUN/CREATININE RATIO 16; CALCIUM 9.6 MG/DL (8.5-10.1); CARBON DIOXIDE 24 MMOL/L (21-32); CHLORIDE 102 MMOL/L (98-107); CREATININE SERUM 1.67 MG/DL (0.60-1.30); GFR ESTIMATED 32; GLUCOSE 294 MG/DL (70-105); LIPASE 4 U/L (8-78); POTASSIUM 3.7 MMOL/L (3.6-5.0); SODIUM 137 MMOL/L (135-145); TOTAL PROTEIN 7.8 GM/DL (6.4-8.2)
[2018-01-18 16:25] LABS: MYOGLOBIN SERUM 50.8 NG/ML (10.0-92.0)
--- NOTE | 2018-01-18 17:13 | Diagnostic Imaging Report ---
PROCEDURE: CT abdomen and pelvis without contrast. TECHNIQUE: Multiple contiguous axial images were obtained through the abdomen and pelvis without the use of intravenous contrast. INDICATION: Abdominal pain with nausea and vomiting. COMPARISON: No prior studies are available for comparison. FINDINGS: The lung bases are clear. No discrete liver mass is identified. There is calcified granuloma in the right lobe. The gallbladder appears to be surgically absent. The pancreas is atrophic. The spleen is unremarkable. No adrenal mass is identified. Kidneys are grossly unremarkable. Aorta is calcified but not aneurysmal. The small and large bowel loops appear to be normal caliber. No obstruction is seen. The uterus and bladder are unremarkable. There is no free fluid detected. No free air or fluid collection is identified. Postop changes to the lumbar spine with posterior instrumentation and pedicle screws are noted extending from L3 through S1. IMPRESSION: No acute abnormality in the abdomen or pelvis is identified. Dictated by: Dictated on workstation # [id number]
[2018-01-18] MEDS ORDERED: NS IV 1000 ML 1,000 ML ONE (17:50)
[2018-01-18 18:39] LABS: CLARITY,URINE SLIGHTLY CLOUDY; GLUCOSE, URINE (UA) 3+ (NEGATIVE); KETONES,URINE NEGATIVE (NEGATIVE); LEUKOCYTE ESTERASE ,URINE 3+ (NEGATIVE); NITRITE,URINE NEGATIVE (NEGATIVE); PH,URINE 5 (5-9); PROTEIN,URINE 3+ (NEGATIVE); UROBILINOGEN,URINE 1 MG/DL (NORMAL)
--- NOTE | 2018-01-18 18:44 | ED Chest Pain ---
General Chief Complaint: Abdominal/GI Problems Stated Complaint: N/V, CANNOT URINATE Nursing Triage Note: PT TO RM 9 BY POV FROM [facility] WITH CC OF NV AND CHEST PAIN FOR A COUPLE DAYS. PT WAS DISCHARGED FROM LAST WEDNESDAY FROM HAVING A UTI. Nursing Sepsis Screen: No Definite Risk Source: patient, other (notes from [facility] and report from [facility] staff) Exam Limitations: no limitations History of Present Illness Date Seen by Provider: Jan 18, 2018 Time Seen by Provider: 15:01 Initial Comments This 57-year-old woman is sent to the emergency room by private vehicle from [facility] where she was being seen for chest pain, nausea, and vomiting. She reports being dismissed from the hospital last week and sleeping through the weekend. She states she was supposed to take antibiotics for urinary tract infection but did not because she continued sleeping. She actually doesn't remember vomiting but states there was emesis in the trash can. She states she cannot keep any food or fluids down. She also reported having chest pain at [facility]. EKG done there showed no ST elevation. She was not able to void at the clinic. She denies having any chest pain since arriving to the ER. Allergies and Home Medications Allergies Coded Allergies: ketorolac (Verified Allergy, Severe, ANAPHYLAXIS, PT TAKES ASA AT HOME, ) ondansetron (Verified Allergy, Intermediate, RASH, 07/19/14) RASH/ HIVES exenatide (Verified Allergy, Unknown, NAUSEA, 07/19/14) NON STOP VOMITING latex (Verified Allergy, Unknown, RASH, 07/19/14) metoclopramide (Verified Allergy, Unknown, RESTLESS LEGS, 07/19/14) Home Medications Amlodipine Besylate 5 Mg Tablet, 5 MG PO DAILY, (Reported) Aspirin 81 Mg Tablet.dr, 81 MG PO DAILY, (Reported) Atorvastatin Calcium 40 Mg Tablet, 40 MG PO HS, (Reported) Cephalexin 500 Mg Capsule, 500 MG PO Q12H, (Reported) 10 DAY SUPPLY FILLED 01-10-18 Diphenhydramine HCl 25 Mg Capsule, 50-75 MG PO HS PRN for SLEEP, (Reported) Diphenhydramine HCl 25 Mg Capsule, 25 MG PO Q6H PRN for WHEN TAKING PROMETHAZINE , (Reported) TAKES WITH PROMETHAZINE TO HELP WITH THE RESTLESS LEGS CAUSED BY PROMETHAZINE Gabapentin 300 Mg Capsule, 300 MG PO BID PRN for FOOT PAIN, (Reported) Gabapentin 300 Mg Capsule, 1,200 MG PO HS, (Reported) TAKES 4 (300MG) CAPSULES Insulin Detemir 100 Unit/1 Ml Insuln.pen, 58 UNITS SQ BID, (Reported) Insulin Lispro 100 Unit/1 Ml Insuln.pen, SQ AC, (Reported) SHE IS UNSURE OF HER SLIDING SCALE AND CAN NOT REMEMBER HOW MANY UNITS SHE TYPICALLY USES, SHE TESTS HER BLOOD SUGAR AND ENTERS HER CARBS AND HER METER TELLS HER HOW MANY UNITS OF INSULIN TO USE Linagliptin 5 Mg Tablet, 5 MG PO DAILY, (Reported) Omeprazole 20 Mg Capsule.dr, 20 MG PO DAILY, (Reported) Oxycodone HCl/Acetaminophen 1 Each Tablet, 1 TAB PO EVERY 4-6 HOURS PRN for PAIN -MODERATE, (Reported) Phenazopyridine HCl 97.5 Mg Tablet, 2 TAB PO TID PRN for URINARY PAIN, (Reported ) Promethazine HCl 25 Mg Supp.rect, 12.5 MG RC Q6H PRN for NAUSEA/VOMITING-2ND LINE, (Reported) Promethazine HCl 25 Mg Tablet, 25 MG PO Q6H PRN for NAUSEA/VOMITING-2ND LINE, ( Reported) Promethazine HCl 25 Mg Supp.rect, 25 MG RC Q6H PRN for NAUSEA/VOMITING-1ST LINE Prescribed by: WARD BEE on 01/18/181901 Varenicline Tartrate 1 Mg Tablet, 1 MG PO BID, (Reported) Review of Systems Constitutional: no symptoms reported EENTM: No Symptoms Reported Respiratory: No Symptoms Reported Cardiovascular: See HPI Gastrointestinal: See HPI Genitourinary: See HPI Musculoskeletal: no symptoms reported Skin: no symptoms reported Psychiatric/Neurological: No Symptoms Reported Endocrine: No Symptoms Reported Past [id number]-[id number]-Aiifxh Hx Patient Social History Alcohol Use: Rarely Uses Alcohol Beverage of Choice: Wine Recreational Drug Use: No Smoking Status: Current Someday Smoker Type Used: Cigarettes Former Smoker, Quit: Nov 23, 2017 2nd Hand Smoke Exposure: No Recent Foreign Travel: No Contact w/Someone Who Travel: No Recent Infectious Disease Expo: No Recent Hopitalizations: Yes (01/14/18) Immunizations Up To Date Tetanus Booster (TDap): Unknown PED Vaccines UTD: No Date of Pneumonia Vaccine: Dec 12, 2013 Date of Influenza Vaccine: Sep 07, 2017 Seasonal Allergies Seasonal Allergies: No Surgeries History of Surgeries: Yes (4 BACK SURGERIES AND 1 CERVICAL SURGERY) Surgeries: Cardiac, Coronary Stent, Ear Surgery, Gallbladder, Orthopedic, Renal Respiratory History of Respiratory Disorde: Yes Respiratory Disorders: Chronic Bronchitis Currently Using CPAP: No Currently Using BIPAP: No Cardiovascular History of Cardiac Disorders: Yes Cardiac Disorders: Chronic Edema/Swelling, Coronary Artery Disease, Deep Vein Thrombosis, High Cholesterol, Hypertension Neurological History of Neurological Disord: Yes Neurological Disorders: Headaches /Migraines, Neuropathy 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 System Hx 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 Disorders: No Sexually Transmitted Disease: No HIV/AIDS: No 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 Disorders: Denies 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 Genitourinary History of Genitourinary Disor: Yes Genitourinary Disorders: Bladder Infection, Kidney Stones, Renal Failure Gastrointestinal History of Gastrointestinal Di: Yes Gastrointestinal Disorders: Gastroesophageal Reflux Musculoskeletal History of Musculoskeletal Dis: Yes Musculoskeletal Disorders: Degenerate Disk Disease, Chronic Back Pain Endocrine History of Endocrine Disorders: Yes Endocrine Disorders: Diabetes, Insulin dep HEENT History of HEENT Disorders: Yes HEENT Disorders: Chronic Ear Infection Loss of Vision: Denies Hearing Impairment: Hard of Hearing Cancer History of Cancer: No Psychosocial History of Psychiatric Problem: Yes Behavioral Health Disorders: Anxiety Integumentary History of Skin or Integumenta: Yes Skin/Integumentary Disorders: Psoriasis Blood Transfusions History of Blood Disorders: No Adverse Reaction to a Blood Tr: No Family Medical History Significant Family History: No Pertinent Family Hx Family Medial History: Cancer of mouth 19 FATHER ( of esophogeal cancer.) Cardiovascular disease 19 MOTHER G8 BROTHER Completed stroke 19 FATHER G8 BROTHER Diabetes mellitus G8 BROTHER FH: lung cancer 19 MOTHER Hypertension 19 FATHER Kidney disease 19 FATHER Myocardial infarction 19 MOTHER G8 BROTHER Respiratory disorder No Family History of: AIDS Physical Exam Vital Signs Vital Signs - First Documented 01/18/18 01/18/18 15:05 19:48 Temp 97.0 Pulse 100 Resp 22 B/P (MAP) 138/86 (103) Pulse Ox 96 O2 Delivery Room Air Capillary Refill : Less Than 3 Seconds General Appearance: No Apparent Distress, WD/WN HEENT: PERRL/EOMI, Normal ENT Inspection, Other (oropharynx somewhat dry) Neck: Normal Inspection Respiratory: Lungs Clear, Normal Breath Sounds, No Accessory Muscle Use, No Respiratory Distress Cardiovascular: Regular Rate, Rhythm, No Edema, No Murmur Gastrointestinal: Normal Bowel Sounds, Soft, Tenderness (generalized and mild) Extremity: Normal Inspection, No Pedal Edema Neurologic/Psychiatric: Alert, Oriented x3, No Motor/Sensory Deficits, Normal Mood/Affect, product responsibility liaison II-XII Norm as Tested Skin: Normal Color, Warm/Dry Progress/Results/Core Measures Results/Orders Lab Results Laboratory Tests Test 01/18/18 15:45 01/18/18 18:23 Range/Units White Blood Count 13.5 H 4.3-11.0 10^3/uL Red Blood Count 4.71 4.35-5.85 10^6/uL Hemoglobin 14.4 # 11.5-16.0 G/DL Hematocrit 41 35-52 % Mean Corpuscular Volume 88 80-99 FL Mean Corpuscular Hemoglobin 31 25-34 PG Mean Corpuscular Hemoglobin Concent 35 32-36 G/DL Red Cell Distribution Width 13.3 10.0-14.5 % Platelet Count 353 130-400 10^3/uL Mean Platelet Volume 10.1 7.4-10.4 FL Neutrophils (%) (Auto) 53 42-75 % Lymphocytes (%) (Auto) 36 12-44 % Monocytes (%) (Auto) 6 0-12 % Eosinophils (%) (Auto) 4 0-10 % Basophils (%) (Auto) 1 0-10 % Neutrophils # (Auto) 7.1 1.8-7.8 X 10^3 Lymphocytes # (Auto) 4.8 H 1.0-4.0 X 10^3 Monocytes # (Auto) 0.8 0.0-1.0 X 10^3 Eosinophils # (Auto) 0.6 H 0.0-0.3 10^3/uL Basophils # (Auto) 0.1 0.0-0.1 10^3/uL Prothrombin Time 13.5 12.2-14.7 SEC INR Comment 1.0 0.8-1.4 Activated Partial Thromboplast Time 23 L 24-35 SEC Sodium Level 137 135-145 MMOL/L Potassium Level 3.7 3.6-5.0 MMOL/L Chloride Level 102 98-107 MMOL/L Carbon Dioxide Level 24 21-32 MMOL/L Anion Gap 11 5-14 MMOL/L Blood Urea Nitrogen 26 H 7-18 MG/DL Creatinine 1.67 H 0.60-1.30 MG/DL Estimat Glomerular Filtration Rate 32 BUN/Creatinine Ratio 16 Glucose Level 294 H 70-105 MG/DL Calcium Level 9.6 8.5-10.1 MG/DL Magnesium Level 2.0 1.8-2.4 MG/DL Total Bilirubin 0.5 0.1-1.0 MG/DL Aspartate Amino Transf (AST/SGOT) 14 5-34 U/L Alanine Aminotransferase (ALT/SGPT) 12 0-55 U/L Alkaline Phosphatase 107 40-136 U/L Myoglobin 50.8 10.0-92.0 NG/ML Troponin I < 0.30 <0.30 NG/ML Total Protein 7.8 6.4-8.2 GM/DL Albumin 4.3 3.2-4.5 GM/DL Lipase 4 L 8-78 U/L Urine Color DON H Urine Clarity SLIGHTLY CLOUDY Urine pH 5 5-9 Urine Specific [place] 1.025 H 1.016-1.022 Urine Protein 3+ H NEGATIVE Urine Glucose (UA) 3+ H NEGATIVE Urine Ketones NEGATIVE NEGATIVE Urine Nitrite NEGATIVE NEGATIVE Urine Bilirubin 1+ H NEGATIVE Urine Urobilinogen 1 NORMAL MG/DL Urine Leukocyte Esterase 3+ H NEGATIVE Urine RBC (Auto) 1+ H NEGATIVE Urine RBC 2-5 H /HPF Urine WBC >100 H /HPF Urine Squamous Epithelial Cells 5-10 /HPF Urine Renal Epithelial Cells 2-5 /HPF Urine Crystals NONE /LPF Urine Bacteria MODERATE H /HPF Urine Casts NONE /LPF Urine Mucus NEGATIVE /LPF Urine Yeast MODERATE H /HPF Urine Culture Indicated YES Micro Results Microbiology 01/18/18 Urine Culture - Preliminary, Resulted Yeast species Probable Enterococcus Species Corynebacterium species My Orders Orders - WARD MUNGUIA MD Cbc With Automated Diff (01/18/18 15:01) Magnesium (01/18/18 15:01) Chest 1 View, Ap/Pa Only (01/18/18 15:01) Ekg Tracing (01/18/18 15:01) Cardiac Profile 1 (01/18/18 15:01) Comprehensive Metabolic Panel (01/18/18 15:01) Myoglobin Serum (01/18/18 15:01) Protime With Inr (01/18/18 15:01) Partial Thromboplastin Time (01/18/18 15:01) O2 (01/18/18 15:01) Monitor-Rhythm Ecg Trace Only (01/18/18 15:01) Saline Lock/Iv-Start (01/18/18 15:01) Ua Culture If Indicated (01/18/18 15:01) Bladder Scan (01/18/18 15:01) Lipase (01/18/18 15:19) Ns Iv 1000 Ml (Sodium Chloride 0.9%) (01/18/18 15:19) Promethazine Injection (Phenergan Injec (01/18/18 15:30) Diphenhydramine Injection (Benadryl Inje (01/18/18 15:48) Diphenhydramine Injection (Benadryl Inje (01/18/18 16:00) Ct Abdomen/Pelvis Wo (01/18/18 16:20) Ns Iv 1000 Ml (Sodium Chloride 0.9%) (01/18/18 17:51) Ns Iv 1000 Ml (Sodium Chloride 0.9%) (01/18/18 17:50) Fentanyl Injection (Sublimaze Injection (01/18/18 18:45) Promethazine Injection (Phenergan Injec (01/18/18 18:45) Urine Culture (01/18/18 18:23) Ceftriaxone Injection (Rocephin Injectio (01/18/18 19:00) Rx-Promethazine Hcl (Rx-Phenergan Supp) (01/18/18 19:06) Iv Infusion <= First Hr Ed (01/18/18 ) Medications Given in ED Vital Signs/I&O Vital Sign - Last 12Hours 01/18/18 01/18/18 01/18/18 15:05 18:54 19:48 Temp 97.0 97.0 97.0 Pulse 100 69 Resp 22 18 B/P (MAP) 138/86 (103) 125/71 (103) Pulse Ox 96 O2 Delivery Room Air Room Air Blood Pressure Mean: 103 Progress Note : Progress Note Cardiac workup was unremarkable. Patient was given 2 L of IV fluid for her acute renal failure. Phenergan was given for nausea along with Benadryl. Patient experienced no vomiting while in the ER. CT of the abdomen and pelvis showed no acute abnormalities. Case was discussed with Dr. Cobb who is satisfied with her cardiac catheter from 2015. Patient had no further chest pain while in the emergency room. She was eventually able to void after IV fluids. One dose of IV fentanyl was given for pain. Rocephin was given for urinary tract infection. The mild tachycardia resolved with IV hydration. A take-home packet of Phenergan was dispensed. ECG Initial ECG Impression Date: Jan 18, 2018 Initial ECG Impression Time: 15:08 Initial ECG Rate: 88 Initial ECG Rhythm: Normal Sinus Initial ECG Intervals: Normal Initial ECG Impression: Normal Comment Normal sinus rhythm with no ST elevation or depression. No abnormal intervals or axis deviation. Diagnostic Imaging Diagonstic Imaging: Xray Plain Films/CT/US/NM/MRI: chest Comments NAME: VALENTE HARPER [facility] REC#: [id number] PT STATUS: REG ER : 1960 PHYSICIAN: WARD MUNGUIA MD ADMIT DATE: 01/18/18/ER Draft Date of Exam:01/18/18 CHEST 1 VIEW, AP/PA ONLY INDICATION: Chest pain. COMPARISON: 11/30/2017 FINDINGS: Single frontal view of the chest demonstrates normal heart size and pulmonary vascularity. The lungs are well aerated and clear. No large pleural effusion or pneumothorax is seen. The visualized osseous structures show no acute abnormalities. Right internal jugular Port-A-Cath is only partially visualized, but appears stable in position. IMPRESSION: 1. No acute cardiopulmonary process. Dictated on workstation # [id number] Dict: 01/18/18 1535 Trans: 01/18/18 1536 [id number] Interpreted by: CRISTIN GARCIA MD Diagonstic Imaging: CT Plain Films/CT/US/NM/MRI: abdomen, pelvis Comments CT abdomen and pelvis viewed by me and report reviewed. See report below: NAME: VALENTE HARPER [facility] REC#: [id number] PT STATUS: REG ER : 1960 PHYSICIAN: WARD MUNGUIA MD ADMIT DATE: 01/18/18/ER Signed Date of Exam: 01/18/18 CT ABDOMEN/PELVIS WO PROCEDURE: CT abdomen and pelvis without contrast. TECHNIQUE: Multiple contiguous axial images were obtained through the abdomen and pelvis without the use of intravenous contrast. INDICATION: Abdominal pain with nausea and vomiting. COMPARISON: No prior studies are available for comparison. FINDINGS: The lung bases are clear. No discrete liver mass is identified. There is calcified granuloma in the right lobe. The gallbladder appears to be surgically absent. The pancreas is atrophic. The spleen is unremarkable. No adrenal mass is identified. Kidneys are grossly unremarkable. Aorta is calcified but not aneurysmal. The small and large bowel loops appear to be normal caliber. No obstruction is seen. The uterus and bladder are unremarkable. There is no free fluid detected. No free air or fluid collection is identified. Postop changes to the lumbar spine with posterior instrumentation and pedicle screws are noted extending from L3 through S1. IMPRESSION: No acute abnormality in the abdomen or pelvis is identified. Dictated by: Dictated on workstation # [id number] Dict: 01/18/181657 Trans: 01/18/181834 Interpreted by: YANELIS STEPHEN MD Electronically signed by: YANELIS STEPHEN MD 01/18/181834 Departure Impression Impression: Primary Impression: Chest pain Qualified Codes: R07.9 - Chest pain, unspecified Additional Impressions: Nausea and vomiting Qualified Codes: R11.2 - Nausea with vomiting, unspecified Generalized abdominal pain Acute renal failure Qualified Codes: N17.9 - Acute kidney failure, unspecified Urinary tract infection Qualified Codes: N39.0 - Urinary tract infection, site not specified Disposition: 01 HOME, SELF-CARE Condition: Improved Departure-Patient Inst. Decision time for Depature: 18:51 Referrals: WINDY GRIFFIN DO (PCP/Family) Primary Care Physician Patient Instructions: Acute Abdomen (Belly Pain), Adult (DC) Add. Discharge Instructions: Drink plenty of clear liquids. Gradually advance your diet with small quantities of bland food as tolerated. Use Phenergan suppositories as prescribed for nausea and vomiting. Follow-up with your primary care provider soon as possible. Contact Dr. Cobb's office for follow-up as well and continue taking aspirin. Tomorrow morning resume taking the antibiotics you were prescribed previously. Follow-up at [facility] on Wednesday morning to review urine culture results to ensure you're on appropriate antibiotic. If you're still having difficulty with nausea and vomiting in the morning despite using Phenergan suppositories, please contact [facility]. All discharge instructions reviewed with patient and/or family. Voiced understanding. Scripts Promethazine HCl (Phenergan) 25 Mg Supp.rect 25 MG RC Q6H Y for NAUSEA/VOMITING-1ST LINE, #10 SUPP.RECT Prov: WARD MUNGUIA MD 01/18/18 Copy Copies To 1: WINDY GRIFFIN DO Copies To 2: RICH COBB MD [facility] WARD MUNGUIA MD Jan 18, 2018 18:44
[2018-01-18] MEDS ORDERED: fentaNYL INJECTION 100 MCG/2 ML AMP IVP ONE (18:45)
[2018-01-18 18:51] LABS: BACTERIA,URINE MODERATE /HPF; BILIRUBIN,URINE 1+ (NEGATIVE); WBC,URINE >100 /HPF
[2018-01-18 18:52] LABS: COLOR,URINE AMBER; YEAST,URINE MODERATE /HPF
[2018-01-18] MEDS ORDERED: cefTRIAXone INJECTION 1,000 MG in NS (IVPB) 50 ML IV ONE (19:00)
[2018-01-18] MEDS ORDERED: PROM25SU43 RC (19:02)
[2018-01-18] MEDS ORDERED: RX-PHENERGAN 25 MG SUPP PPK#3 PR STA (19:06)
[2018-01-18 19:48] VITALS: BP 125/71
== END 2018-01-18 19:48 | disposition home or self-care (01) ==
LOC: EDUNIT# 14:37 → ER 14:39
DX: R07.9 Chest pain, unspecified (principal); N39.0 Urinary tract infection, site not specified; N17.9 Acute kidney failure, unspecified; I25.10 Atherosclerotic heart disease of native coronary artery without angina pectoris; E78.00 Pure hypercholesterolemia, unspecified; I10 Essential (primary) hypertension; E11.40 Type 2 diabetes mellitus with diabetic neuropathy, unspecified; K21.9 Gastro-esophageal reflux disease without esophagitis; F41.9 Anxiety disorder, unspecified; G43.909 Migraine, unspecified, not intractable, without status migrainosus; Z87.448 Personal history of other diseases of urinary system; Z87.442 Personal history of urinary calculi; Z88.6 Allergy status to analgesic agent; Z88.8 Allergy status to other drugs, medicaments and biological substances; Z82.49 Family history of ischemic heart disease and other diseases of the circulatory system; Z80.1 Family history of malignant neoplasm of trachea, bronchus and lung; Z80.0 Family history of malignant neoplasm of digestive organs; Z88.1 Allergy status to other antibiotic agents; Z91.040 Latex allergy status; Z79.82 Long term (current) use of aspirin; Z79.4 Long term (current) use of insulin; Z87.891 Personal history of nicotine dependence; Z95.5 Presence of coronary angioplasty implant and graft; Z87.09 Personal history of other diseases of the respiratory system
CPT/HCPCS: 36415; 71045; 74176; 80053; 81000; 83690; 83735; 83874; 84484; 85025; 85610; 85730; 87088; 93005; 93041; 96361; 96365; 96375

== ENCOUNTER 2018-02-21 14:25 | Emergency (ER) | payer MEDICARE, OTHER ==
[~2018-02-21 14:25] MED LIST changes: +PROM25SU43 RC
== END 2018-02-21 15:27 | disposition left against medical advice (07) ==
LOC: EDUNIT# 14:25 → ER 14:26
DX: R51 Headache (principal)

== ENCOUNTER → 2018-02-25 | Outpatient (CLI) | payer MEDICARE ==
[~2018-02-25] VITALS: Ht 152.4 cm; Wt 76.2 kg
[2018-02-25 11:18] VITALS: BP 123/74
[2018-02-25 11:21] LABS: HEMOGLOBIN 12.9 G/DL (11.5-16.0); MEAN PLATELET VOLUME 10.1 FL (7.4-10.4); RED BLOOD COUNT 4.23 10^6/uL (4.35-5.85); WHITE BLOOD COUNT 10.7 10^3/uL (4.3-11.0)
[2018-02-25 11:42] LABS: ALANINE AMINOTRANSFERASE 8 U/L (0-55); ALBUMIN 1.7 GM/DL (3.2-4.5); ALKALINE PHOSPHATASE 41 U/L (40-136); BILIRUBIN,TOTAL 0.2 MG/DL (0.1-1.0); BUN/CREATININE RATIO 26; CARBON DIOXIDE 14 MMOL/L (21-32); CHLORIDE 130 MMOL/L (98-107); CHOLESTEROL 76 MG/DL (< 200); CREATININE SERUM 0.35 MG/DL (0.60-1.30); GFR ESTIMATED > 60; GLUCOSE 101 MG/DL (70-105); HDL CHOLESTEROL < 15 MG/DL (40-60); SODIUM 143 MMOL/L (135-145); TOTAL PROTEIN 2.7 GM/DL (6.4-8.2); TRIGLYCERIDES 133 MG/DL (<150); VLDL CHOLESTEROL 27 MG/DL (5-40)
[2018-02-25 14:02] LABS: ALBUMIN 3.9 GM/DL (3.2-4.5); BILIRUBIN,TOTAL 0.5 MG/DL (0.1-1.0); CALCIUM 8.8 MG/DL (8.5-10.1); CREATININE SERUM 1.09 MG/DL (0.60-1.30); POTASSIUM 4.6 MMOL/L (3.6-5.0); TOTAL PROTEIN 6.8 GM/DL (6.4-8.2)
[2018-02-25 14:08] LABS: CALCIUM 3.8 MG/DL (8.5-10.1); POTASSIUM 1.8 MMOL/L (3.6-5.0)
== END ==
LOC: SDC 10:54
PROVIDERS: ATTEND Physician Assistant
DX: E11.49 Type 2 diabetes mellitus with other diabetic neurological complication (principal); I10 Essential (primary) hypertension; E78.5 Hyperlipidemia, unspecified; M79.7 Fibromyalgia
CPT/HCPCS: 36415; 36591; 80053; 80061; 84443; 85027

== ENCOUNTER 2018-05-11 12:34 | Outpatient (RCR) | payer MEDICARE, OTHER ==
[2018-02-25 12:05] VITALS: BP 123/74
[2018-04-13 12:42] VITALS: BP 105/69
[2018-04-13] MEDS: CATHETER FLUSH 10 ML SYR IV PRN (13:00)
[~2018-05-11] VITALS: Ht 152.4 cm; Wt 76.2 kg
[~2018-05-11 12:34] MED LIST changes: +HEParin (CENTRAL IV FLUSH) 500 UNIT/5 ML SYR IV ONE; +HEParin (CENTRAL IV FLUSH) 500 UNIT/5 ML SYR ONE; -METF1000 PO; +METF10002 PO; +METF500T5 PO; +TRAZ-189 PO; -TRAZ-28 PO
[2018-05-11] MEDS ORDERED: HEParin (CENTRAL IV FLUSH) 500 UNIT/5 ML SYR ONE (12:37)
[2018-05-11] MEDS: CATHETER FLUSH 10 ML SYR IV PRN (12:40)
[2018-05-11 12:45] VITALS: BP 110/62
[2018-05-26] MEDS ORDERED: GABA800T2 PO (14:46)
[2018-05-26] MEDS ORDERED: OXYC10TA7 PO (14:47)
[2018-06-01] MEDS ORDERED: ERYT250C61 PO (13:18)
[2018-06-01] MEDS ORDERED: PANT40TA2 PO (13:18)
== END 2018-05-26 | disposition home or self-care (01) ==
LOC: SDC 12:34
PROVIDERS: ATTEND Surgery
DX: I87.2 Venous insufficiency (chronic) (peripheral) (principal); Z45.2 Encounter for adjustment and management of vascular access device; E11.49 Type 2 diabetes mellitus with other diabetic neurological complication; I10 Essential (primary) hypertension; E78.5 Hyperlipidemia, unspecified; M79.7 Fibromyalgia
CPT/HCPCS: 36415; 36591; 80053; 80061; 84443; 85027; 96523

== ENCOUNTER 2018-05-26 05:36 | Outpatient (CLI) | payer MEDICARE ==
[~2018-05-26] VITALS: Ht 152.4 cm; Wt 76.2 kg
[~2018-05-26 05:36] MED LIST changes: -HEParin (CENTRAL IV FLUSH) 500 UNIT/5 ML SYR IV ONE; -HEParin (CENTRAL IV FLUSH) 500 UNIT/5 ML SYR ONE
[2018-05-26] MEDS ORDERED: GABA800T2 PO (14:46)
[2018-05-26] MEDS ORDERED: OXYC10TA7 PO (14:47)
[2018-06-01] MEDS ORDERED: PANT40TA2 PO (13:18)
[2018-06-01] MEDS ORDERED: ERYT250C61 PO (13:18)
== END 2018-05-26 14:51 ==
LOC: PREOP 05:36
PROVIDERS: ATTEND Surgery
DX: Z01.818 Encounter for other preprocedural examination (principal)

== ENCOUNTER 2018-06-01 09:57 | Day surgery (SDC) | payer MEDICARE ==
[~2018-06-01] VITALS: Ht 152.4 cm; Wt 76.2 kg
[~2018-06-01 09:57] MED LIST changes: +GABA800T2 PO; +OXYC10TA7 PO
--- OUTSIDE RECORDS SUMMARY | 2018-06-01 10:03 | XMS REPORT ---
Author Author BURKSMARCELINO [facility] Address [address] [place] [address] Care Team Providers Care Cut Off Saw Set Up Operator Name Role Phone MARCELINO BURKS Unavailable PROBLEMS Type Condition ICD9-CM Code AKE49-ES Code Onset Dates Condition Status SNOMED Code Problem Dental caries K02.9 Active 93796383 Problem Primary insomnia F51.01 Active 5565279 Problem Seasonal allergic rhinitis due to pollen J30.1 Active 21230840 Problem Type 2 diabetes mellitus with hyperglycemia E11.65 Active [id number] Problem Hyperlipidemia E78.5 Active 52876444 Problem Cervicalgia M54.2 Active 22018449 Problem Alterations of sensations R20.9 Active 703697634 Problem Other obesity due to excess calories E66.09 Active 534062716 Problem Arthritis M19.90 Active 9834401 Problem Diabetic mononeuropathy associated with type 2 diabetes mellitus E11.41 Active 151004030 Problem Body mass index (BMI) of 33.0-33.9 in adult Z68.33 Active 758548537 Problem GERD (gastroesophageal reflux disease) K21.9 Active 693972611 Problem group home 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 Active 491016146 Problem Degenerative disc disease, lumbar M51.36 Active 57936917 Problem Fibromyalgia M79.7 Active 97598741 Problem Tobacco abuse Z72.0 Active 52007416 Problem Tobacco abuse counseling Z71.6 Active 155910328 Problem 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 I10 Active 86967058 Problem Chronic pain syndrome G89.4 Active 426340789 Problem CAD (coronary artery disease) I25.10 Active 90035607 Problem DM neuro manif type II E11.49 Active 40746599 ALLERGIES No Information ENCOUNTERS Encounter Location Date Diagnosis [facility], [place] [address] [facility] [id number] [address] Jul, [facility], [place] [address] [id number] [address] Apr, Type 2 diabetes mellitus with hyperglycemia E11.65 [place] [address] 82155- 3767 Apr, Hyperlipidemia E78.5 ; Chronic pain syndrome G89.4 ; Cervicalgia M54.2 ; DM neuro manif type II E11.49 ; 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 ; Nausea alone R11.0 ; 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 I10 ; GERD ( gastroesophageal reflux disease) K21.9 ; CAD (coronary artery disease) I25.10 and Diabetic mononeuropathy associated with type 2 diabetes mellitus E11.41 [place] [address] 13446- 6963 Apr, [place] [address] 45481- 5484 March, 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 I10 ; DM neuro manif type II E11.49 and GERD (gastroesophageal reflux disease) K21.9 [place] [address] 18613- 6761 March, DM neuro manif type II E11.49 and GERD (gastroesophageal reflux disease) K21.9 [place] [address] 46528- 1186 March, [place] [address] 86895- 4562 Feb, Tobacco abuse Z72.0 [place] [address] 16966- 1449 Feb, Tobacco abuse Z72.0 [place] [address] 11550- 6535 Feb, Hypokalemia E87.6 [place] [address] 45677- 8849 Feb, Hyperlipidemia E78.5 ; 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 I10 ; DM neuro manif type II E11.49 ; Fibromyalgia M79.7 ; Acute non-recurrent frontal sinusitis J01.10 ; Other obesity due to excess calories E66.09 and Body mass index (BMI) of 33.0-33.9 in adult Z68.33 [place] [address] 57865- 8559 05 Jan, 2018 Dysuria R30.0 [place] [address] 83030- 1181 05 Jan, 2018 Dysuria R30.0 [place] [address] 13077- 2371 02 Jan, 2018 Acute cystitis with hematuria N30.01 ; DM neuro manif type II E11.49 ; 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 ; 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 I10 and Hospital discharge follow-up Z09 [place] [address] 54431- 3751 27 Dec, 2017 Chest pain, unspecified type R07.9 ; Dehydration E86.0 and Anuria R34 [place] [address] 44949- 9341 Dec, [place] [address] 65205- 6969 Dec, Hyperglycemia R73.9 ; Dehydration E86.0 and Acute cystitis with hematuria N30.01 [facility] [address] [place] [address] 21770 -3224 Dec, [facility] [address] [place] [address] 01300 -5578 Dec, [facility] [address] [place] [address] 62375 -2436 Dec, [facility] [address] [place] [address] 71688 -8462 16 Dec, 2017 Dysuria R30.0 ; Acute cystitis with hematuria N30.01 and Weakness R53.[address] 68377- 8190 Dec, [place] [address] [id number] [place] [address] 39295- 2453 Nov, [place] [address] 22337- 4689 Nov, [place] [address] 20779- 2852 Nov, 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 I10 ; DM neuro manif type II E11.49 ; 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 ; Tobacco abuse Z72.0 ; Hyperlipidemia E78.5 ; Non-adherence to medical treatment Z91.19 ; GERD (gastroesophageal reflux disease) K21.9 ; Degenerative disc disease, lumbar M51.36 ; Fibromyalgia M79.7 ; Chronic pain syndrome G89.4 ; Dental caries K02.9 and Seasonal allergic rhinitis due to pollen J30.[address] 22027- 5625 Nov, Alterations of sensations R20.9 [place] [address] 60848- 7551 Sep, DM neuro manif type II E11.49 ; Hyperlipidemia E78.5 ; Degenerative disc disease, lumbar M51.36 and Chronic pain syndrome G89.4 [place] [address] [id number] [place] [address] 60910- 8395 Sep, Arthritis M19.90 [place] [address] 90830- 3070 Sep, Type 2 diabetes mellitus without complication E11.9 ; GERD ( gastroesophageal reflux disease) K21.9 ; Arthritis M19.90 and Chronic pain syndrome G89.4 [place] [address] 52514- 0796 Sep, [place] [id number] [place] [address] 38994- 6942 Aug, [place] [address] 50955- 7742 18 Aug, 2017 Type 2 diabetes mellitus without complication E11.9 [facility], [place] [address], [place] [address] 13[address] 17 Aug, 2017 [facility], [place] [id number] [place] [address] 54866- 8532 16 Aug, 2017 [facility], [place] [id number] [place] [address] 01491- 0241 Aug, [facility], [place] [id number] [place] [address] 62579- 6377 26 Jul, 2017 [facility] [id number] [place] [address] 18113 -3602 22 Jul, 2017 Acute non-recurrent frontal sinusitis J01.10 [place] [address] [id number] [place] [address] 57530- 3466 20 Jul, 2017 CAD (coronary artery disease) I25.10 and GERD ( gastroesophageal reflux disease) K21.9 [place] [address] [id number] [place] [address] 87125- 2073 14 Jul, 2017 Localized swelling, mass and lump, neck R22.1 [place] [address] [id number] [place] [address] 32523- 3731 06 Jul, 2017 [place] [id number] [place] [address] 52774- 2600 Jun, Type 2 diabetes mellitus without complication E11.9 ; Primary insomnia F51.01 ; Alterations of sensations R20.9 ; Hyperlipidemia E78.5 ; GERD (gastroesophageal reflux disease) K21.9 ; 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 I10 ; 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 ; Tobacco abuse Z72.0 ; Tobacco abuse counseling Z71.6 and CAD (coronary artery disease) I25.10 [facility], [place] [id number] [place] [address] 00957- 0884 May, [place] [address] [id number] [place] [address] 20443- 2641 May, Type 2 diabetes mellitus without complication E11.9 [facility], [place] [id number] [place] [address] 13866- 7124 May, [facility], [place] [id number] [place] [address] 20034- 9880 March, [facility], [place] [id number] [place] [address] 64504- 2486 Feb, [facility] [id number] [place] [address] 32963 -4171 Jan, Acute suppurative otitis media of left ear with spontaneous rupture of tympanic membrane, recurrence not specified H66.012 [place] [id number] [place] [address] 14140- 9198 Dec, Type 2 diabetes mellitus without complication E11.9 ; Lumbago M54.5 ; Cervicalgia M54.2 ; Hyperlipidemia E78.5 ; GERD ( gastroesophageal reflux disease) K21.9 ; Chronic pain syndrome G89.4 ; Dysuria R30.0 and 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 I10 [place] [id number] [place] [address] 44940- 1193 Oct, [place] [id number] [place] [address] 89571- 9400 30 Sep, 2016 Diabetic mononeuropathy associated with type 2 diabetes mellitus E11.41 and Coughing R05 [place] [id number] [place] [address] 51837- 8404 Sep, Diabetic mononeuropathy associated with type 2 diabetes mellitus E11.41 and Coughing R05 [facility], [place] [id number] [place] [address] 96170- 4054 Sep, Onychomycosis B35.1 ; Neuritis M79.2 and Type 2 diabetes mellitus without complication E11.9 [facility], [place] [id number] [place] [address] 74233- 8311 Sep, [facility], [place] [id number] [place] [address] 83500- 5773 Sep, Cough R05 ; Seasonal allergic rhinitis due to pollen J30.1 and Acute upper respiratory infection, unspecified J06.9 [place] [address] [address] [id number] [place] [address] 39331- 4974 Sep, [place] [address] 57936- 7064 Aug, [place] [address] 82217- 1826 Jul, Type 2 diabetes mellitus without complication E11.9 ; Chronic pain G89.29 ; 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 I10 and Acute non-recurrent maxillary sinusitis J01.00 [place] [address] 47651- 4699 Jul, Chronic pain syndrome G89.4 ; Lumbago M54.5 and Cervicalgia M54.2 [place] [address] 98643- 0110 Jul, [place] [address] 99165- 2152 Jul, [place] [address] 35953- 7354 Jun, Onychomycosis B35.1 ; Onychocryptosis L60.0 and DM neuro manif type II E11.49 [place] [id number] [place] [address] 40375- 7774 Jun, Type 2 diabetes mellitus without complication E11.9 ; Pain in unspecified hip M25.559 ; Other chronic pain G89.29 ; Lumbago M54.5 ; Chronic pain G89.29 ; Insomnia, unspecified G47.00 ; GERD (gastroesophageal reflux disease) K21.9 and Dental caries K02.9 [place] [id number] [place] [address] 61011- 1542 Jun, Type 2 diabetes mellitus without complication E11.9 ; Lumbago M54.5 ; Chronic pain G89.29 ; Insomnia, unspecified G47.00 ; GERD ( gastroesophageal reflux disease) K21.9 ; Dental caries K02.9 ; Pain in unspecified hip M25.559 and Other chronic pain G89.29 [place] [address] 24441- 2997 May, [place] [address] 67759- 7120 May, Type 2 diabetes mellitus without complication E11.9 ; 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 I10 ; Chronic pain syndrome G89.4 ; Other seasonal allergic rhinitis J30.2 and Insomnia, unspecified G47.00 [place] [address] 98515- 3789 Apr, [address] 15815- 7206 Apr, Hypertension I10 and Chronic pain G89.29 [place] [address] 07603- 9678 March, Onychomycosis B35.1 ; Onychocryptosis L60.0 and Type 2 diabetes mellitus without complication E11.9 [place] [address] 58388- 6000 March, Type 2 diabetes mellitus without complication E11.9 ; 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 I10 ; Alterations of sensations R20.9 ; Chronic pain syndrome G89.4 ; Tobacco abuse Z72.0 and Tobacco abuse counseling Z71.6 [place] [address] 89519- 0738 Feb, Cough R05 ; Type 2 diabetes mellitus without complication E11.9 ; Tobacco abuse counseling Z71.6 and Chronic pain G89.29 [place] [address] 34309- 5179 Feb, [place] [address] 36569- 0675 Feb, Type 2 diabetes mellitus without complication E11.9 ; Lumbago M54.5 ; Cervicalgia M54.2 ; Degenerative disc disease, lumbar M51.36 and Numbness and tingling of both legs 782.0 [facility] [id number] [place] [address] [id number] Jan, Dental caries K02.9 and Encounter for dental examination Z01.[address] 09517- 0437 Jan, Type 2 diabetes mellitus without complication E11.9 [place] [address] 22476- 0688 Jan, Type 2 diabetes mellitus without complication E11.9 ; Numbness and tingling of both legs 782.0 ; Fibromyalgia M79.7 ; Hyperlipidemia E78.5 ; Lumbago M54.5 ; Cervicalgia M54.2 ; Hypertension I10 ; CAD (coronary artery disease) I25.10 ; Tobacco abuse Z72.0 ; Tobacco abuse counseling Z71.6 and GERD (gastroesophageal reflux disease) K21.[address] 04640- 0495 Jan, [address] 92101- 8915 Dec, [facility] [id number] [place] [address] [id number] Dec, Dental examination Z01.20 and Dental caries K02.[address] 95156- 4034 Dec, Edema R60.9 ; Type 2 diabetes mellitus without complication E11.9 ; Hypertension I10 and Mouth pain K13.[address] 55216- 2922 Dec, Degenerative disc disease, lumbar M51.[address] 52187- 1587 Dec, [address] [place] [address]- 2569 Nov, Insomnia, unspecified G47.00 [place] [address] 45843- 0717 Nov, Type 2 diabetes mellitus without complication E11.9 ; Lumbago M54.5 ; Degenerative disc disease, lumbar M51.36 ; Fibromyalgia M79.7 ; Coronary artery disease I25.10 ; Hyperlipidemia E78.5 ; Controlled substance agreement signed Z79.899 ; Dysuria R30.0 ; Insomnia, unspecified G47.00 ; GERD ( gastroesophageal reflux disease) K21.9 ; Hypertension 401.9 and 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 [place] [address] 96063- 4997 Nov, [place] [address] 33036- 5652 Oct, Degenerative disc disease, lumbar M51.36 ; Cervicalgia M54.2 ; Insomnia, unspecified G47.00 ; Decreased GFR R94.4 and GERD ( gastroesophageal reflux disease) K21.9 [place] [address] 42949- 9123 Oct, Lumbago M54.5 [place] [address] 40009- 7349 Oct, Low back pain M54.5 [place] [address] 10967- 2935 Oct, [place] [address] 87856- 6869 Oct, Disorientation R41.0 [place] [address] 70956- 6945 Oct, Type 2 diabetes mellitus without complication E11.9 ; Disorientation R41.0 and Chest pain R07.9 [place] [address] 95035- 6377 Oct, [facility], [place] [id number] [place] [address] 63469- 1292 Sep, Low back pain M54.5 [facility], [place] [id number] [place] [address] 32926- 5909 Sep, Insomnia, unspecified G47.00 [facility], [place] [id number] [place] [address] 16593- 0095 Aug, Degenerative disc disease, lumbar M51.36 ; Type 2 diabetes mellitus without complication E11.9 and Encounter for immunization Z23 [facility], [place] [id number] [place] [address] 33668- 8564 Aug, [facility], [place] [id number] [place] [address] 57910- 0927 Aug, [facility], [place] [id number] [place] [address] 37488- 3918 Aug, [facility], [place] [id number] [place] [address] 66318- 1120 Jul, [facility], [place] [id number] [place] [address] 43654- 2345 Jun, [facility], [place] [id number] [place] [address] 46712- 9192 Jun, Chest pain 786.50 and Lumbago 724.2 [facility], [place] [id number] [place] [address] 50192- 0384 Jun, [facility], [place] [id number] [place] [address] 78310- 4243 Jun, [facility] [id number] [place] [address] [id number] Jun, Dental examination V72.2 [facility], [place] [id number] [place] [address] 96104- 9301 Jun, [facility], [place] [id number] [place] [address] 03642- 1750 May, Left shoulder pain 719.41 and Numbness and tingling of both legs 782.0 [facility], [place] [id number] [place] [address] 99398- 3422 May, Cough 786.2 ; Numbness and tingling of both legs 782.0 and Acute rhinitis 460 [facility], [place] [id number] [place] [address] 03299- 0114 May, [facility], [place] [id number] [place] [address] 53435- 7739 Apr, [facility], [place] [id number] [place] [address] 85500- 2268 Apr, Bilateral lower extremity edema 782.3 ; Lumbago 724.2 and Insomnia 780.52 [facility], [place] [id number] [place] [address] 43657- 5490 Apr, [facility], [place] [id number] [place] [address] 38093- 6874 Apr, [facility], [place] [id number] [place] [address] 07758- 2522 March, Seborrheic keratosis 702.19 and Skin lesion of face 709.9 [facility], [place] [id number] [place] [address] 19209- 7293 March, [facility], [place] [id number] [place] [address] 02078- 7350 March, [facility], [place] [id number] [place] [address] 82832- 2992 March, [facility], [place] [id number] [place] [address] 654699- 6482 March, [facility], [place] [id number] [place] [address] 36255- 7454 Feb, [facility], [place] [id number] [place] [address] 27753- 0626 Feb, [facility] [place] [facility] [address] [id number] [place] [address]- 8308 25 Jan, 2015 [facility] [place] [facility] [address] [id number] [place] [address]- 4636 25 Jan, 2015 [facility] [place] [facility] [address] [id number] [place] [address]- 0424 16 Jan, 2015 [facility] [place] [facility] [address] [id number] [place] [address]- 9121 16 Jan, 2015 [facility] [place] [facility] [address] [id number] [place] [address]- 0940 16 Jan, 2015 [facility] [place] [facility] [address] [id number] [place] [address]- 1439 16 Jan, 2015 [facility] [place] [facility] [address] [id number] [place] [address]- 2765 Jan, [facility] [place] [facility] [address] [id number] [place] [address]- 6602 13 Jan, 2015 [facility] [place] [facility] [address] [id number] [place] [address]- 9689 Jan, [facility] [place] [facility] [address] [id number] [place] [address]- 4927 Jan, [facility] [place] [facility] [address] [id number] [place] [address]- 0640 Jan, [facility] [place] [facility] [address] [id number], [place] [address]- 9282 Dec, [facility] [place] [facility] [address] [id number] [place] [address]- 3881 Dec, [facility] [place] [facility] [address] [id number] [place] [address]- 4102 Dec, [facility] [place] [facility] [address] [id number] [place] [address]- 2400 Dec, [facility] [place] [facility] [address] [id number] [place] [address]- 3542 12 Dec, 2014 [facility] [address] [id number] [place] [address]- 8250 Dec, [facility] [address] [id number] [place] [address]- 5754 15 Nov, 2014 [facility] [address] [id number] [place] [address]- 2796 15 Nov, 2014 [facility] [address] [id number] [place] [address]- 3091 Nov, [facility] [address] [id number] [place] [address]- 2285 Nov, [facility] [address] [id number] [place] [address]- 0394 Nov, [facility] [address] [id number] [place] [address]- 0149 Nov, [facility] [address] [id number] [place] [address]- 4159 Nov, [facility] [address] [id number] [place] [address]- 4728 Nov, [facility] [address] [id number] [place] [address]- 2608 Nov, [facility] [address] [id number] [place] [address]- 6851 Nov, [facility] [address] [id number] [place] [address]- 2312 Nov, [facility] [place] [facility] [address] [id number] [place] [address]- 6439 Oct, [facility] [place] [facility] [address] [id number] [place] [address]- 3726 Oct, [facility] [address] [id number] [place] 4230 Oct, [facility] [place] [facility] [address] [id number] [place] [address]- 7406 Oct, [facility] [place] [facility] [address] [id number] [place] [address]- 3210 Oct, [facility] [place] [facility] [address] [id number] [place] [address] Oct, [facility] [place] [facility] [address] [id number] [place] [address] Oct, [facility] [place] [facility] [address] [id number] [place] [address] Oct, [facility] [place] [facility] [address] [id number] [place] [address] Oct, [facility] [place] [facility] [address] [id number] [place] [address] Oct, [facility] [place] [facility] [address] [id number] [place] [address] Sep, [facility] [place] [facility] [address] [id number] [place] [address] Sep, [facility] [place] [facility] [address] [id number], [place] [address] Sep, [facility] [place] [facility] [address] [id number], [place] [address] Sep, [facility] [place] [facility] [address] [id number], [place] [address] Sep, [facility] [place] [facility] [address] [id number], [place] [address] Sep, [facility] [place] [facility] [address] [id number], [place] [address] Sep, [facility] [place] [facility] [address] [id number], [place] [address] Sep, [facility] [place] [facility] [address] [id number], [place] [address] Sep, [facility] [place] [facility] [address] [id number] [place] [address] 17 Sep, 2014 [facility] [place] [facility] [address] [id number] [place] [address]- [address] Sep, [facility] [place] [facility] [address] [id number] [place] [address] Sep, [facility] [place] [facility] [address] [id number] [place] [address] Sep, [facility] [place] [facility] [address] [id number] [place] [address] Aug, [facility] [place] [facility] [address] [id number] [place] [address] Aug, [facility] [place] [facility] [address] [id number] [place] [address] Aug, [facility] [place] [facility] [address] [id number] [place] [address] 30 Aug, 2014 [facility] [place] [facility] [address] [id number] [place] [address] 30 Aug, 2014 [facility] [place] [facility] [address] [facility] [facility] [id number] [place] [address] 30 Aug, 2014 [facility] [place] [facility] [address] [id number] [place] [address] Aug, [facility] [place] [facility] [address] [id number], [place] [address] Aug, [facility] [place] [facility] [address] [id number] [place] [address] Aug, [facility] [place] [facility] [address] [facility] [id number], [place] [address] Aug, [facility] [place] [facility] [address] [facility] [id number], [place] [address] Aug, [facility] [place] [facility] [address] [id number] [place] [address] Aug, 2013 [facility] [place] [facility] [address] [id number] [place] [address] Aug, [facility] [place] [facility] [address] [id number] [place] [address] Aug, 2013 [facility] [place] [facility] [address] [id number] [place] [address] Aug, 2013 [facility] [place] [facility] [address] [id number] [place] [address] Aug, [facility] [place] [facility] [address] [id number] [place] [address] Aug, [facility] [place] [facility] [address] [id number] [place] [address] Aug, [facility] [place] [facility] [address] [id number] [place] [address] 30 Sep, 2013 [facility] [place] [facility] [address] [id number] [place] [address] 30 Sep, 2013 [facility] [place] [facility] [address] [id number] [place] [address] 24 Sep, 2013 [facility] [place] [facility] [address] [id number] [place] [address] 24 Sep, 2013 [facility] [place] [facility] [address] [id number] [place] [address] 23 Sep, 2013 [facility] [place] [facility] [address] [id number] [place] [address] 23 Sep, 2013 [facility] [place] [facility] [address] [id number] [place] [address] 15 Sep, 2013 [facility] [place] [facility] [address] [id number] [place] [address] 15 Sep, 2013 [facility] [place] [facility] [address] [id number] [place] [address] Jul, [facility] [place] [address] [facility] [id number], [place] [address] 15 Jul, 2014 [facility] [place] [address] [facility] [id number], [place] [address] Jul, [facility] [place] [address] [facility] [id number], [place] [address] Jul, [facility] [place] [address] [facility] [id number], [place] [address] Jul, [facility] [place] [address] [facility] [id number], [place] [address] Jul, IMMUNIZATIONS No Known Immunizations SOCIAL HISTORY Never Assessed REASON FOR VISIT Requests return call PLAN OF CARE VITAL SIGNS MEDICATIONS Unknown Medications RESULTS No Results PROCEDURES No Known procedures INSTRUCTIONS MEDICATIONS ADMINISTERED No Known Medications MEDICAL (GENERAL) HISTORY Type Description Date Medical History hearing loss Medical History 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 Medical History acute renal failure Medical History hyperlipidemia Medical History type II diabetes Medical History Arthritis Medical History degenerative disease lumbosacral spine Medical History chronic pain r/t DDD Medical History fibromyalgia Medical History NC-stent to LAD Surgical History cholecystectomy 1983 Surgical History myringotomy with ventilating tube as adult Surgical History laminectomy w/ discectomy x4 to L spine and x1 to C spine Surgical History Heart cath- clean 02/2016 Surgical History Placed port during hospital stay 11/2016 Hospitalization History Frequent admission for hyperglycemia/DKA Hospitalization History hyperglycemia 11/27/15 Hospitalization History hyperglycemia, cough 11/2016 Hospitalization History Chest Pain 12/[address] [facility]- Influenza illness, hyperglycemia 2017 Hospitalization History [facility] [place]- High BS (Pt left AMA) 01/05/2018 Hospitalization History [facility]- DKA and UTI. Discharged 01/14/2018 Hospitalization History [facility] [place]- Nausea and Vomiting, cannot urinate 01/18/2018
--- OUTSIDE RECORDS SUMMARY | 2018-06-01 10:03 | XMS REPORT ---
Author Author BURKSMARCELINO Rene Organization [facility] Address [address] [place] [address] Care Team Providers Care Presser [employer] Name Role Phone MARCELINO BURKS Unavailable PROBLEMS Type Condition ICD9-CM Code TCS66-NN Code Onset Dates Condition Status SNOMED Code Problem Tobacco abuse counseling Z71.6 Active 400252757 Problem DM neuro manif type II E11.49 Active 33762992 Problem Chronic pain syndrome G89.4 Active 652748157 Problem Other obesity due to excess calories E66.09 Active 700012386 Problem Body mass index (BMI) of 33.0-33.9 in adult Z68.33 Active 244591946 Problem Seasonal allergic rhinitis due to pollen J30.1 Active 47120658 Problem Dental caries K02.9 Active 09879180 Problem Arthritis M19.90 Active 9104447 Problem Primary insomnia F51.01 Active 4515577 Problem Hyperlipidemia E78.5 Active 52412555 Problem Degenerative disc disease, lumbar M51.36 Active 27336603 Problem Alterations of sensations R20.9 Active 452276422 Problem care home 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 Active 002219134 Problem 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 I10 Active 96812032 Problem Fibromyalgia M79.7 Active 75426759 Problem CAD (coronary artery disease) I25.10 Active 31904587 Problem GERD (gastroesophageal reflux disease) K21.9 Active 754232860 Problem Tobacco abuse Z72.0 Active 16863321 ALLERGIES Substance Reaction Event Type Date Status Zofran Unknown Drug Allergy Jun, Active Reglan restless leg; anything in reglan family Drug Allergy Jun, Active Toradol Unknown Drug Allergy Jun, Active LATEX Unknown Non Drug Allergy Jun, Active ENCOUNTERS Encounter Location Date Diagnosis [facility] [address] [facility] [id number] [place] [address] Feb, Tobacco abuse Z72.0 [facility] [address] [address] Feb, Tobacco abuse Z72.0 [place] [address] [address]- 3813 Feb, Hypokalemia E87.6 [place] [address] 7[address]87- 1092 Feb, Hyperlipidemia E78.5 ; 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 I10 ; DM neuro manif type II E11.49 ; Fibromyalgia M79.7 ; Acute non-recurrent frontal sinusitis J01.10 ; Other obesity due to excess calories E66.09 and Body mass index (BMI) of 33.0-33.9 in adult Z68.33 [place] [address] [address] Jan, Dysuria R30.0 [place] [address] 79427- 6449 Jan, Dysuria R30.0 [place] [address] 03676- 4243 Jan, Acute cystitis with hematuria N30.01 ; DM neuro manif type II E11.49 ; care home 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 ; 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 I10 and Hospital discharge follow-up Z09 [place] [address] 31808- 555[address] 27 Dec, 2017 Chest pain, unspecified type R07.9 ; Dehydration E86.0 and Anuria R34 [place] [address] 23260- 4182 Dec, [place] [address] 88320- 2884 Dec, Hyperglycemia R73.9 ; Dehydration E86.0 and Acute cystitis with hematuria N30.01 [facility] [address] [address] -[address] Dec, [facility] [id number] [place] [address] 20802 -8354 Dec, [facility] [address] [place] [id number] [place] [address] 05168 -8133 Dec, [facility] [address] [place] [id number] [place] [address] 75345 -8283 16 Dec, 2017 Dysuria R30.0 ; Acute cystitis with hematuria N30.01 and Weakness R53.1 [place] [address] [place] [id number] [place] [address] 42330- 8597 Dec, [place] [address] 85091- 1745 Nov, [place] [address] [place] [id number] [place] [address] 30797- 2015 Nov, [place] [address] [place] [id number] [place] [address] 84803- 0746 Nov, 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 I10 ; DM neuro manif type II E11.49 ; terminal carman 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 ; Tobacco abuse Z72.0 ; Hyperlipidemia E78.5 ; Non-adherence to medical treatment Z91.19 ; GERD (gastroesophageal reflux disease) K21.9 ; Degenerative disc disease, lumbar M51.36 ; Fibromyalgia M79.7 ; Chronic pain syndrome G89.4 ; Dental caries K02.9 and Seasonal allergic rhinitis due to pollen J30.1 [place] [address] [place] [id number] [place] [address] 12905- 6056 Nov, Alterations of sensations R20.9 [place] [id number] [place] [address] 55141- 0720 Sep, DM neuro manif type II E11.49 ; Hyperlipidemia E78.5 ; Degenerative disc disease, lumbar M51.36 and Chronic pain syndrome G89.4 [place] [address] [place] [id number] [place] [address] 94087- 2775 Sep, Arthritis M19.[address] [place] [address]- 8724 Sep, Type 2 diabetes mellitus without complication E11.9 ; GERD ( gastroesophageal reflux disease) K21.9 ; Arthritis M19.90 and Chronic pain syndrome G89.4 [facility] [address] [place] [id number] [place] [address] 35117- 2098 Sep, [facility] [address] 27608- 3812 Aug, [facility] [address] 95591- 6535 Aug, Type 2 diabetes mellitus without complication E11.9 [facility] [address] 22749- 1706 Aug, [facility] [address] 12973- 2638 Aug, [facility] [address] 56477- 3057 Aug, [facility] [address] [place] [id number] [place] [address] 75136- 7483 Jul, [facility] [address] [place] [id number] [place] [address] 66528 -9494 22 Jul, 2017 Acute non-recurrent frontal sinusitis J01.10 [facility] [address] [place] [id number] [place] [address] 39295- 8965 20 Jul, 2017 CAD (coronary artery disease) I25.10 and GERD ( gastroesophageal reflux disease) K21.9 [facility] [address] [place] [id number] [place] [address] 59207- 8194 14 Jul, 2017 Localized swelling, mass and lump, neck R22.1 [facility] [address] [place] [id number] [place] [address] 55127- 0378 06 Jul, 2017 [facility] [address] [place] [id number] [place] [address] 12819- 1816 Jun, Type 2 diabetes mellitus without complication E11.9 ; Primary insomnia F51.01 ; Alterations of sensations R20.9 ; Hyperlipidemia E78.5 ; GERD (gastroesophageal reflux disease) K21.9 ; 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 I10 ; terminal carman 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 ; Tobacco abuse Z72.0 ; Tobacco abuse counseling Z71.6 and CAD (coronary artery disease) I25.10 [facility] [address] 14607- 4341 May, [place] [address] 20213- 1647 May, Type 2 diabetes mellitus without complication E11.9 [place] [address] 72445- 9900 May, [place] [address] 14158- 3829 March, [place] [address] 10221- 5220 Feb, [facility] [address] 70926 -6594 Jan, Acute suppurative otitis media of left ear with spontaneous rupture of tympanic membrane, recurrence not specified H66.012 [place] [address] [place] [id number] [place] [address] 85894- 0681 Dec, Type 2 diabetes mellitus without complication E11.9 ; Lumbago M54.5 ; Cervicalgia M54.2 ; Hyperlipidemia E78.5 ; GERD ( gastroesophageal reflux disease) K21.9 ; Chronic pain syndrome G89.4 ; Dysuria R30.0 and 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 I10 [place] [address] [place] [id number] [place] [address] 20595- 2243 Oct, [address] 99134- 9500 Sep, Diabetic mononeuropathy associated with type 2 diabetes mellitus E11.41 and Coughing R05 [place] [address] 73651- 5130 Sep, Diabetic mononeuropathy associated with type 2 diabetes mellitus E11.41 and Coughing R05 [place] [address] 30431- 8467 18 Sep, 2016 Onychomycosis B35.1 ; Neuritis M79.2 and Type 2 diabetes mellitus without complication E11.9 [place] [address] 54836- 1617 14 Sep, 2016 [place] [address] 34420- 8395 03 Sep, 2016 Cough R05 ; Seasonal allergic rhinitis due to pollen J30.1 and Acute upper respiratory infection, unspecified J06.9 [place] [address] 21872- 3636 Sep, [place] [address] 46328- 7302 Aug, [place] [address] 32020- 2766 13 Jul, 2016 Type 2 diabetes mellitus without complication E11.9 ; Chronic pain G89.29 ; 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 I10 and Acute non-recurrent maxillary sinusitis J01.00 [place] [address] [place] [id number] [place] [address] 41387- 4892 02 Jul, 2016 Chronic pain syndrome G89.4 ; Lumbago M54.5 and Cervicalgia M54.2 [place] [address] [place] [id number] [place] [address] 41997- 8568 Jul, [place] [address] 23210- 8576 Jul, [place] [address] 15812- 1891 Jun, Onychomycosis B35.1 ; Onychocryptosis L60.0 and DM neuro manif type II E11.49 [place] [address] [place] [id number] [place] [address] 90142- 7312 Jun, Type 2 diabetes mellitus without complication E11.9 ; Pain in unspecified hip M25.559 ; Other chronic pain G89.29 ; Lumbago M54.5 ; Chronic pain G89.29 ; Insomnia, unspecified G47.00 ; GERD (gastroesophageal reflux disease) K21.9 and Dental caries K02.[address] 90489- 7312 Jun, Type 2 diabetes mellitus without complication E11.9 ; Lumbago M54.5 ; Chronic pain G89.29 ; Insomnia, unspecified G47.00 ; GERD ( gastroesophageal reflux disease) K21.9 ; Dental caries K02.9 ; Pain in unspecified hip M25.559 and Other chronic pain G89.29 [place] [id number] [place] [address] 90524- 0885 May, [address] 75062- 0152 May, Type 2 diabetes mellitus without complication E11.9 ; 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 I10 ; Chronic pain syndrome G89.4 ; Other seasonal allergic rhinitis J30.2 and Insomnia, unspecified G47.00 [place] [address] [place] [id number] [place] [address] 26498- 7564 Apr, [place] [id number] [place] [address] 92404- 9156 Apr, Hypertension I10 and Chronic pain G89.[address] 34819- 6682 March, Onychomycosis B35.1 ; Onychocryptosis L60.0 and Type 2 diabetes mellitus without complication E11.[address] 79580- 9865 March, Type 2 diabetes mellitus without complication E11.9 ; 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 I10 ; Alterations of sensations R20.9 ; Chronic pain syndrome G89.4 ; Tobacco abuse Z72.0 and Tobacco abuse counseling Z71.6 [place] [address] [place] [address] 97615- 5987 Feb, Cough R05 ; Type 2 diabetes mellitus without complication E11.9 ; Tobacco abuse counseling Z71.6 and Chronic pain G89.29 [place] [address] [place] [id number] [place] [address] 62856- 3544 Feb, [place] [address] 20228- 8308 Feb, Type 2 diabetes mellitus without complication E11.9 ; Lumbago M54.5 ; Cervicalgia M54.2 ; Degenerative disc disease, lumbar M51.36 and Numbness and tingling of both legs 782.0 [facility] [address] [place] [id number] [place] [address] [id number] Jan, Dental caries K02.9 and Encounter for dental examination Z01.[address] 28703- 9307 Jan, Type 2 diabetes mellitus without complication E11.9 [place] [address] [place] [id number] [place] [address] 61046- 3881 Jan, Type 2 diabetes mellitus without complication E11.9 ; Numbness and tingling of both legs 782.0 ; Fibromyalgia M79.7 ; Hyperlipidemia E78.5 ; Lumbago M54.5 ; Cervicalgia M54.2 ; Hypertension I10 ; CAD (coronary artery disease) I25.10 ; Tobacco abuse Z72.0 ; Tobacco abuse counseling Z71.6 and GERD (gastroesophageal reflux disease) K21.9 [place] [address] [place] [id number] [place] [address] 17735- 9615 Jan, [place] [address] 86723- 1019 Dec, [facility] [address] [place] [id number] [place] [address] [id number] Dec, Dental examination Z01.20 and Dental caries K02.9 [place] [address] [place] [id number] [place] [address] 64759- 3162 Dec, Edema R60.9 ; Type 2 diabetes mellitus without complication E11.9 ; Hypertension I10 and Mouth pain K13.79 [place] [address] 87940- 6485 Dec, Degenerative disc disease, lumbar M51.36 [place] [address] 01607- 9018 Dec, [place] [address] 09351- 1157 Nov, Insomnia, unspecified G47.00 [place] [address] 13400- 1341 Nov, Type 2 diabetes mellitus without complication E11.9 ; Lumbago M54.5 ; Degenerative disc disease, lumbar M51.36 ; Fibromyalgia M79.7 ; Coronary artery disease I25.10 ; Hyperlipidemia E78.5 ; Controlled substance agreement signed Z79.899 ; Dysuria R30.0 ; Insomnia, unspecified G47.00 ; GERD ( gastroesophageal reflux disease) K21.9 ; Hypertension 401.9 and care home 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 [place] [address] [place] [id number] [place] [address] 78189- 3182 Nov, [place] [address] [place] [id number] [place] [address] 86147- 4411 Oct, Degenerative disc disease, lumbar M51.36 ; Cervicalgia M54.2 ; Insomnia, unspecified G47.00 ; Decreased GFR R94.4 and GERD ( gastroesophageal reflux disease) K21.9 [place] [address] 02261- 9271 Oct, Lumbago M54.5 [place] [address] [place] [id number] [place] [address] 88113- 6833 Oct, Low back pain M54.5 [place] [address] 77080- 9095 Oct, [facility] [address] [place] [id number] [place] [address] 57970- 3493 Oct, Disorientation R41.0 [facility] [address] [place] [id number] [place] [address] 52067- 7464 Oct, Type 2 diabetes mellitus without complication E11.9 ; Disorientation R41.0 and Chest pain R07.9 [facility] [address] [place] [id number] [place] [address] 12780- 4424 Oct, [facility] [address] [place] [id number] [place] [address] 54104- 0805 Sep, Low back pain M54.5 [facility] [address] [place] [id number] [place] [address] 43580- 5694 Sep, Insomnia, unspecified G47.00 [place] [address] 70192- 1484 Aug, Degenerative disc disease, lumbar M51.36 ; Type 2 diabetes mellitus without complication E11.9 and Encounter for immunization Z23 [place] [address] [place] [id number] [place] [address] 78138- 7443 Aug, [facility] [address] [place] [id number] [place] [address] 32703- 1472 Aug, [facility] [address] [place] [id number] [place] [address] 03221- 4622 Aug, [facility] [address] [place] [id number] [place] [address] 44463- 8107 Jul, [facility] [address] [place] [id number] [place] [address] 71910- 6274 Jun, [facility] [address] [place] [id number] [place] [address] 75942- 4672 Jun, Chest pain 786.50 and Lumbago 724.2 [facility] [address] [place] [id number] [place] [address] 44936- 2782 Jun, [facility] [address] [place] [address] 54829- 8919 Jun, [facility] [address] [place] [address] [id number] Jun, Dental examination V72.2 [facility] [address] [place] [id number] [place] [address] 22366- 8801 Jun, [facility] [address] [place] [id number] [place] [address] 39489- 3628 May, Left shoulder pain 719.41 and Numbness and tingling of both legs 782.0 [facility] [address] [place] [id number] [place] [address] 54195- 4762 May, Cough 786.2 ; Numbness and tingling of both legs 782.0 and Acute rhinitis 460 [facility] [address] [place] [id number] [place] [address] 36632- 9162 May, [facility] [address] [place] [id number] [place] [address] 40554- 3339 Apr, [facility] [address] [place] [id number] [place] [address] 63048- 9110 Apr, Bilateral lower extremity edema 782.3 ; Lumbago 724.2 and Insomnia 780.52 [facility] [address] [place] [id number] [place] [address] 87426- 3512 Apr, [facility] [address] [place] [id number] [place] [address] 66487- 5615 Apr, [facility] [address] [place] [id number] [place] [address] 68516- 3797 March, Seborrheic keratosis 702.19 and Skin lesion of face 709.9 [facility] [address] [place] [id number] [place] [address] 79508- 7443 March, [facility] [address] [place] [id number] [place] [address] 30319- 4023 March, [facility] [place] [facility] [address] [id number] [place] [address]- 0120 March, [facility] [place] [facility] [address] [id number] [place] [address]- 4130 March, [facility] [place] [facility] [address] [facility] [id number] [place] [address]- 9073 Feb, [facility] [place] [facility] [address] [id number] [place] [address]- 6531 Feb, [facility] [place] [facility] [address] [id number] [place] [address]- 6160 Jan, [facility] [place] [facility] [address] [id number] [place] [address]- 4529 25 Jan, 2015 [facility] [place] [facility] [address] [facility] [id number] [place] [address]- 6373 16 Jan, 2015 [facility] [place] [facility] [address] [id number] [place] [address]- 1487 16 Jan, 2015 [facility] [place] [facility] [address] [id number] [place] [address]- 0401 16 Jan, 2015 [facility] [place] [facility] [address] [facility] [id number] [place] [address]- 7671 16 Jan, 2015 [facility] [place] [facility] [address] [id number] [place] [address]- 9553 13 Jan, 2015 [facility] [place] [facility] [address] [id number] [place] [address]- 1657 13 Jan, 2015 [facility] [place] [facility] [address] [id number] [place] [address]- 6622 13 Jan, 2015 [facility] [place] [facility] [address] [id number] [place] [address]- 9769 13 Jan, 2015 [facility] [place] [facility] [address] [facility] [id number] [place] [address]- 9289 10 Jan, 2015 [facility] [place] [facility] [address] [id number] [place] [address]- 4776 Dec, [facility] [place] [facility] [address] [id number] [place] [address]- 3128 Dec, [facility] [place] [facility] [address] [id number] [place] [address]- 3571 Dec, [facility] [place] [facility] [address] [id number] [place] [address]- 7574 Dec, [facility] [place] [facility] [address] [id number] [place] [address]- 1990 Dec, [facility] [place] [facility] [address] [id number] [place] [address]- 7938 Dec, [facility] [place] [facility] [address] [id number] [place] [address]- 0050 Nov, [facility] [place] [facility] [address] [id number] [place] [address]- 3761 Nov, [facility] [place] [facility] [address] [id number] [place] [address]- 7142 Nov, [facility] [place] [facility] [address] [id number] [place] [address]- 2118 Nov, [facility] [place] [facility] [address] [id number] [place] [address]- 3247 Nov, [facility] [place] [facility] [address] [id number] [address]- 1576 Nov, [facility] [place] [facility] [address] [id number] [place] [address]- 7360 Nov, [facility] [place] [facility] [address] [id number] [place] [address]- 1454 Nov, [facility] [place] [facility] [address] [id number], [place] [address]- 9943 Nov, [facility] [place] [facility] [address] [id number], [place] [address]- 7465 Nov, [facility] [place] [facility] [address] [id number] [place] [address]- 3728 Nov, [facility] [place] [facility] [address] [id number] [place] 7924 Oct, [facility] [place] [facility] [address] [id number] [place] [address]- 0586 Oct, [facility] [place] [facility] [address] [id number] [place] [address]- 6153 Oct, [facility] [place] [facility] [address] [id number] [place] [address]- 9510 Oct, [facility] [place] [facility] [address] [id number] [place] [address]- 0426 Oct, [facility] [place] [facility] [address] [id number] [place] [address]- 2219 Oct, [facility] [place] [facility] [address] [id number] [place] [address]- 0239 Oct, [facility] [place] [facility] [address] [id number] [place] [address]- 1630 Oct, [facility] [place] [facility] [address] [id number] [place] [address]- 2684 Oct, [facility] [place] [facility] [address] [id number] [place] [address]- 4116 Oct, [facility] [place] [facility] [address] [id number] [place] [address]- 5842 Sep, [facility] [place] [facility] [address] [id number] [place] [address]- 4825 Sep, [facility] [place] [facility] [address] [id number] [place] [address]- 2036 Sep, [facility] [place] [facility] [address] [id number] [place] [address]- 9715 Sep, [facility] [place] [facility] [address] [id number] [place] [address]- 5140 18 Sep, 2014 [facility] [place] [facility] [address] [id number] [place] [address] 18 Sep, 2014 [facility] [place] [facility] [address] [id number] [place] [address] 18 Sep, 2014 [facility] [place] [facility] [address] [id number] [place] [address] Sep, [facility] [place] [facility] [address] [id number] [place] [address] Sep, [facility] [place] [facility] [address] [id number] [place] [address] 17 Sep, 2014 [facility] [place] [facility] [address] [id number] [place] [address] Sep, [facility] [place] [facility] [address] [id number] [place] [address] Sep, [facility] [place] [facility] [address] [id number] [place] [address] Sep, [facility] [place] [facility] [address] [id number] [place] [address] Aug, [facility] [place] [facility] [address] [id number] [place] [address] 30 Aug, 2014 [facility] [place] [facility] [address] [id number] [place] [address] 30 Aug, 2014 [facility] [place] [facility] [address] [id number] [place] [address] 30 Aug, 2014 [facility] [place] [facility] [address] [id number] [place] [address] Aug, [facility] [place] [facility] [address] [id number] [place] [address] Aug, [facility] [place] [facility] [address] [id number] [place] [address] Aug, [facility] [place] [facility] [address] [id number] [place] [address] Aug, [facility] [place] [facility] [address] [id number] [place] [address] Aug, [facility] [place] [facility] [address] [id number] [place] [address] Aug, [facility] [place] [facility] [address] [id number] [place] [address] Aug, [facility] [place] [facility] [address] [id number] [place] [address] Aug, [facility] [place] [facility] [address] [id number] [place] [address] Aug, [facility] [place] [facility] [address] [id number] [place] [address] Aug, [facility] [place] [facility] [address] [id number], [place] [address] Aug, [facility] [place] [facility] [address] [id number] [place] [address] Aug, [facility] [place] [facility] [address] [address] [id number] [address] Aug, [facility] [place] [facility] [address] [id number], [place] [address] Aug, [facility] [place] [facility] [address] [id number], [place] [address] 30 Jul, 2014 [facility] [place] [facility] [address] [id number] [place] [address] 30 Jul, 2014 [facility] [place] [facility] [address] [id number], [place] [address] 24 Jul, 2014 [facility] [place] [facility] [address] [id number] [place] [address] 24 Jul, 2014 [facility] [place] [facility] [id number] [address] Jul, [facility] [id number] [address] Jul, [facility] [id number] [address] Jul, [facility] [id number] [address] Jul, [facility] [id number] [place] [id number] Jul, [facility] [id number] [place] [address] Jul, [facility] [id number] [place] [address] Jul, [facility] [id number] [place] [address] Jul, [facility] [id number] [address] Jul, [facility] [id number] [address] Jul, IMMUNIZATIONS No Known Immunizations SOCIAL HISTORY Never Assessed REASON FOR VISIT Diabetes, pt. states she has a spot on the back of her head she would like to make sure it is not open and bleeding, pt. states having pain in neck, trouble sleeping---CRyburn,CCMA, extra numbness in arms and hands PLAN OF CARE Activity Details Follow Up 3 Months, prn Reason:CHM VITAL SIGNS Height 60 in 2017-07-06 Weight 182.3 lbs 2017-07-06 Temperature 98.6 degrees Fahrenheit 2017-07-06 Heart Rate 82 bpm 2017-07-06 Respiratory Rate 20 2017-07-06 BMI 35.60 kg/m2 2017-07-06 Blood pressure systolic 131 mmHg 2017-07-06 Blood pressure diastolic 78 mmHg 2017-07-06 MEDICATIONS Medication Instructions Dosage Frequency Start Date End Date Duration Status Aspirin 81 MG Orally Once a day 1 tablet 24h Active Norvasc 5 MG TAKE 1 TABLET BY MOUTH ONCE A DAY Active Gabapentin 600 MG Orally 3 times a day 1 tablet 8h Active Breo Ellipta 100-25 MCG/INH Inhalation Once a day 1 puff 24h Active Lipitor 20 mg Orally Once a day take 1 tablet by Oral route at bedtime 1 time per day 24h Active Tradjenta 5 MG TAKE ONE TABLET BY MOUTH ONCE DAILY Active Humalog 100 UNIT/ML Active Tramadol HCl 50 mg Orally 3-4 times per day 2 tablets as needed Active Protonix 20 mg Orally Once a day TAKE ONE TABLET BY MOUTH ONCE DAILY FOR 30 DAYS 24h 90 days Active Levemir FlexTouch 100 UNIT/ML INJECT 50 UNITS SUBCUTANEOUSLY TWICE DAILY Active Plavix 75 MG Orally Once a day 1 tablet 24h Active Lunesta 2 MG Orally Once a day 1 tablet immediately before bedtime 24h 15 Jun, 2017 30 days Active Metformin HCl 500 MG TAKE ONE TABLET BY MOUTH WITH FOOD TWICE DAILY Active RESULTS Name Result Date Reference Range A1C (IN HOUSE) 2017-07-06 A1C IN HOUSE 9.9 4.3 - 5.6 % Previous A1c 8.6 Lot [id number] Exp date PROCEDURES Procedure Date Ordered Result Body Site GLYCATED HEMOGLOBIN TEST Jul 06, 2017 [facility] VISIT ESTABLISHED PATIENT Jul 06, 2017 INSTRUCTIONS MEDICATIONS ADMINISTERED No Known Medications MEDICAL (GENERAL) HISTORY Type Description Date Medical History hearing loss Medical History 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 Medical History acute renal failure Medical History hyperlipidemia Medical History type II diabetes Medical History Arthritis Medical History degenerative disease lumbosacral spine Medical History chronic pain r/t DDD Medical History fibromyalgia Medical History [place]-stent to L[place] Surgical History cholecystectomy 1983 Surgical [...] Influenza illness, hyperglycemia 2017 Hospitalization History [facility] [place]- High BS (Pt left AMA) 01/05/2018 Hospitalization History [facility], [place]- DKA and UTI. Discharged 01/14/2018 Hospitalization History [facility] [place]- Nausea and Vomiting, cannot urinate 01/18/2018
--- OUTSIDE RECORDS SUMMARY | 2018-06-01 10:04 | XMS REPORT ---
Author Author LINH WILSON [facility] IN [facility] Address [address] [place] [address] Care Team Providers Care Assisted Living Coordinator Name Role Phone LINH WILSON Unavailable PROBLEMS Type Condition ICD9-CM Code POD93-QV Code Onset Dates Condition Status SNOMED Code Problem Tobacco abuse counseling Z71.6 Active 537041615 Problem DM neuro manif type II E11.49 Active 59381202 Problem Chronic pain syndrome G89.4 Active 181459430 Problem Other obesity due to excess calories E66.09 Active 003813620 Problem Body mass index (BMI) of 33.0-33.9 in adult Z68.33 Active 948064341 Problem Seasonal allergic rhinitis due to pollen J30.1 Active 84329715 Problem Dental caries K02.9 Active 32974266 Problem Arthritis M19.90 Active 5898835 Problem Primary insomnia F51.01 Active 1176908 Problem Hyperlipidemia E78.5 Active 10654936 Problem Degenerative disc disease, lumbar M51.36 Active 91188601 Problem Alterations of sensations R20.9 Active 009617503 Problem intermediate frame tender 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 Active 394084449 Problem 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 I10 Active 58358385 Problem Fibromyalgia M79.7 Active 14555766 Problem CAD (coronary artery disease) I25.10 Active 25290958 Problem GERD (gastroesophageal reflux disease) K21.9 Active 535668811 Problem Tobacco abuse Z72.0 Active 26042147 ALLERGIES Substance Reaction Event Type Date Status Zofran Unknown Drug Allergy Jul, Active Reglan restless leg; anything in reglan family Drug Allergy Jul, Active Toradol Unknown Drug Allergy Jul, Active LATEX Unknown Non Drug Allergy Jul, Active ENCOUNTERS Encounter Location Date Diagnosis [facility] [address] [facility] [id number] [address] Feb, Tobacco abuse Z72.0 [facility] [address] [address] 12 Feb, 2018 Tobacco abuse Z72.0 [place] [address] [address] 48[address] 06 Feb, 2018 Hypokalemia E87.6 [place] [address] 25988- 0[address] 05 Feb, 2018 Hyperlipidemia E78.5 ; 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 I10 ; DM neuro manif type II E11.49 ; Fibromyalgia M79.7 ; Acute non-recurrent frontal sinusitis J01.10 ; Other obesity due to excess calories E66.09 and Body mass index (BMI) of 33.0-33.9 in adult Z68.[address] [address] 05 Jan, 2018 Dysuria [address] [address]- [address]7 Jan, Dysuria R30.0 [place] [address] 95892- 7360 02 Jan, 2018 Acute cystitis with hematuria N30.01 ; DM neuro manif type II E11.49 ; intermediate frame tender 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 ; 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 I10 and Hospital discharge follow-up Z09 [place] [address] 65[address] 240[address] 27 Dec, 2017 Chest pain, unspecified type R07.9 ; Dehydration E86.0 and Anuria R34 [place] [address] 33305- 6969 Dec, [place] [address] 98464- 5994 Dec, Hyperglycemia R73.9 ; Dehydration E86.0 and Acute cystitis with hematuria N30.01 [facility] [address] [address] Dec, [facility] [address] [address] Dec, [facility] [address] [place] [id number] [place] [address] 77327 [address]3302 Dec, [facility] [address] [place] [id number] [place] [address] 95436 -8613 16 Dec, 2017 Dysuria R30.0 ; Acute cystitis with hematuria N30.01 and Weakness R53.1 [place] [address] [place] [id number] [place] [address] 70136- 9191 Dec, [place] [address] 05513- 1146 Nov, [place] [address] [place] [id number] [place] [address] 87460- 7341 Nov, [place] [id number] [place] [address] 86680- 8968 Nov, 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 I10 ; DM neuro manif type II E11.49 ; long-term 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 ; Tobacco abuse Z72.0 ; Hyperlipidemia E78.5 ; Non-adherence to medical treatment Z91.19 ; GERD (gastroesophageal reflux disease) K21.9 ; Degenerative disc disease, lumbar M51.36 ; Fibromyalgia M79.7 ; Chronic pain syndrome G89.4 ; Dental caries K02.9 and Seasonal allergic rhinitis due to pollen J30.1 [place] [address] [place] [id number] [place] [address] 86093- 0185 Nov, Alterations of sensations R20.9 [place] [id number] [place] [address] 15345- 6181 Sep, DM neuro manif type II E11.49 ; Hyperlipidemia E78.5 ; Degenerative disc disease, lumbar M51.36 and Chronic pain syndrome G89.4 [place] [address] [place] [id number] [place] [address] 73592- 1386 Sep, Arthritis M19.90 [place] [address] [place] [address] 78[address] Sep, Type 2 diabetes mellitus without complication E11.9 ; GERD ( gastroesophageal reflux disease) K21.9 ; Arthritis M19.90 and Chronic pain syndrome G89.4 [facility] [address] [place] [id number] [place] [address] 11860- 2670 Sep, [facility] [address] [place] [id number] [place] [address] 32635- 1191 Aug, [facility] [address] [place] [id number] [place] [address] 85942- 3960 Aug, Type 2 diabetes mellitus without complication E11.9 [facility] [address] 38251- 4424 Aug, [facility] [address] [place] [id number] [place] [address] 86324- 3683 Aug, [facility] [address] [place] [id number] [place] [address] 16738- 8961 Aug, [facility] [address] [place] [id number] [place] [address] 07170- 0602 Jul, [facility] [address] [id number] [place] [address] 29226 [address]9378 Jul, Acute non-recurrent frontal sinusitis J01.10 [facility] [address] [place] [id number] [place] [address] 62364- 3056 Jul, CAD (coronary artery disease) I25.10 and GERD ( gastroesophageal reflux disease) K21.9 [facility] [address] [place] [id number] [place] [address] 40764- 7847 14 Jul, 2017 Localized swelling, mass and lump, neck R22.1 [facility] [address] [place] [id number] [place] [address] 22337- 7557 06 Jul, 2017 [facility] [address] [place] [id number] [place] [address] 17023- 2007 Jun, Type 2 diabetes mellitus without complication E11.9 ; Primary insomnia F51.01 ; Alterations of sensations R20.9 ; Hyperlipidemia E78.5 ; GERD (gastroesophageal reflux disease) K21.9 ; 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 I10 ; long-term 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 ; Tobacco abuse Z72.0 ; Tobacco abuse counseling Z71.6 and CAD (coronary artery disease) I25.10 [facility] [address] [place] [id number] [place] [address] 19698- 3564 May, [place] [address] 80289- 1338 May, Type 2 diabetes mellitus without complication E11.9 [place] [address] 65177- 1940 May, [place] [address] 65261- 6170 March, [place] [address] 34106- 6644 Feb, [facility] [address] 399[address] Jan, Acute suppurative otitis media of left ear with spontaneous rupture of tympanic membrane, recurrence not specified H66.012 [place] [address] [place] [id number] [place] [address] 47678- 3208 Dec, Type 2 diabetes mellitus without complication E11.9 ; Lumbago M54.5 ; Cervicalgia M54.2 ; Hyperlipidemia E78.5 ; GERD ( gastroesophageal reflux disease) K21.9 ; Chronic pain syndrome G89.4 ; Dysuria R30.0 and 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 I10 [place] [address] [place] [id number] [place] [address] 76850- 1704 Oct, [address] 31389- 5693 Sep, Diabetic mononeuropathy associated with type 2 diabetes mellitus E11.41 and Coughing R05 [place] [address] 65534- 3416 Sep, Diabetic mononeuropathy associated with type 2 diabetes mellitus E11.41 and Coughing R05 [place] [address] 19260- 3996 18 Sep, 2016 Onychomycosis B35.1 ; Neuritis M79.2 and Type 2 diabetes mellitus without complication E11.9 [place] [address] 42788- 8115 14 Sep, 2016 [place] [address] 90608- 0007 03 Sep, 2016 Cough R05 ; Seasonal allergic rhinitis due to pollen J30.1 and Acute upper respiratory infection, unspecified J06.9 [place] [address] 57381- 4096 Sep, [place] [address] 84652- 9406 Aug, [place] [address] 13473- 6321 13 Jul, 2016 Type 2 diabetes mellitus without complication E11.9 ; Chronic pain G89.29 ; 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 I10 and Acute non-recurrent maxillary sinusitis J01.00 [place] [address] [place] [id number] [place] [address] 93314- 4873 Jul, Chronic pain syndrome G89.4 ; Lumbago M54.5 and Cervicalgia M54.2 [place] [address] [place] [id number] [place] [address] 30351- 0375 Jul, [place] [address] 85073- 8014 Jul, [place] [address] 07212- 1457 Jun, Onychomycosis B35.1 ; Onychocryptosis L60.0 and DM neuro manif type II E11.49 [place] [address] [place] [address] 2242 Jun, Type 2 diabetes mellitus without complication E11.9 ; Pain in unspecified hip M25.559 ; Other chronic pain G89.29 ; Lumbago M54.5 ; Chronic pain G89.29 ; Insomnia, unspecified G47.00 ; GERD (gastroesophageal reflux disease) K21.9 and Dental caries K02.[address] 55341- 6253 Jun, Type 2 diabetes mellitus without complication E11.9 ; Lumbago M54.5 ; Chronic pain G89.29 ; Insomnia, unspecified G47.00 ; GERD ( gastroesophageal reflux disease) K21.9 ; Dental caries K02.9 ; Pain in unspecified hip M25.559 and Other chronic pain G89.[address] 85532- 1498 May, [address] 51766- 0734 May, Type 2 diabetes mellitus without complication E11.9 ; 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 I10 ; Chronic pain syndrome G89.4 ; Other seasonal allergic rhinitis J30.2 and Insomnia, unspecified G47.[address] 04447- 7158 Apr, [address] 96135- 9845 Apr, Hypertension I10 and Chronic pain G89.[address] 24637- 6929 March, Onychomycosis B35.1 ; Onychocryptosis L60.0 and Type 2 diabetes mellitus without complication E11.[address] 48198- 6958 March, Type 2 diabetes mellitus without complication E11.9 ; 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 I10 ; Alterations of sensations R20.9 ; Chronic pain syndrome G89.4 ; Tobacco abuse Z72.0 and Tobacco abuse counseling Z71.6 [place] [id number] [place] [address] 80876- 8015 Feb, Cough R05 ; Type 2 diabetes mellitus without complication E11.9 ; Tobacco abuse counseling Z71.6 and Chronic pain G89.29 [place] [id number] [place] [address] 78702- 3434 Feb, [address] 43674- 7946 Feb, Type 2 diabetes mellitus without complication E11.9 ; Lumbago M54.5 ; Cervicalgia M54.2 ; Degenerative disc disease, lumbar M51.36 and Numbness and tingling of both legs 782.0 [facility] [id number] [place] [address] [id number] Jan, Dental caries K02.9 and Encounter for dental examination Z01.20 [place] [id number] [place] [address] 99371- 0654 Jan, Type 2 diabetes mellitus without complication E11.9 [place] [id number] [place] [address] 61724- 2510 Jan, Type 2 diabetes mellitus without complication E11.9 ; Numbness and tingling of both legs 782.0 ; Fibromyalgia M79.7 ; Hyperlipidemia E78.5 ; Lumbago M54.5 ; Cervicalgia M54.2 ; Hypertension I10 ; CAD (coronary artery disease) I25.10 ; Tobacco abuse Z72.0 ; Tobacco abuse counseling Z71.6 and GERD (gastroesophageal reflux disease) K21.9 [place] [id number] [place] [address] 72041- 3053 Jan, [place] [id number] [place] [address] 70897- 3209 Dec, [facility] [id number] [place] [address] [id number] Dec, Dental examination Z01.20 and Dental caries K02.[id number] [place] [address] 39671- 4252 Dec, Edema R60.9 ; Type 2 diabetes mellitus without complication E11.9 ; Hypertension I10 and Mouth pain K13.79 [place] [address] 08336- 3533 Dec, Degenerative disc disease, lumbar M51.36 [place] [address] 43966- 2923 Dec, [place] [address] 91432- 4679 Nov, Insomnia, unspecified G47.00 [place] [address] 28989- 7854 Nov, Type 2 diabetes mellitus without complication E11.9 ; Lumbago M54.5 ; Degenerative disc disease, lumbar M51.36 ; Fibromyalgia M79.7 ; Coronary artery disease I25.10 ; Hyperlipidemia E78.5 ; Controlled substance agreement signed Z79.899 ; Dysuria R30.0 ; Insomnia, unspecified G47.00 ; GERD ( gastroesophageal reflux disease) K21.9 ; Hypertension 401.9 and long-term 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 [place] [address] [place] [id number] [place] [address] 02860- 7320 Nov, [place] [address] [place] [id number] [place] [address] 60850- 6355 Oct, Degenerative disc disease, lumbar M51.36 ; Cervicalgia M54.2 ; Insomnia, unspecified G47.00 ; Decreased GFR R94.4 and GERD ( gastroesophageal reflux disease) K21.9 [place] [address] 53513- 0474 Oct, Lumbago M54.5 [place] [address] 08740- 9703 Oct, Low back pain M54.5 [place] [address] [place] [address]- 8905 Oct, [facility] [address] 50460- 9955 Oct, Disorientation R41.0 [facility] [address] 05908- 8413 Oct, Type 2 diabetes mellitus without complication E11.9 ; Disorientation R41.0 and Chest pain R07.9 [facility] [address] 44999- 1189 Oct, [facility] [address] 31619- 0649 Sep, Low back pain M54.5 [place] [address] 81961- 3710 Sep, Insomnia, unspecified G47.00 [place] [address] 45786- 1834 Aug, Degenerative disc disease, lumbar M51.36 ; Type 2 diabetes mellitus without complication E11.9 and Encounter for immunization Z23 [place] [address] 01518- 2734 Aug, [place] [address] 24357- 9239 Aug, [place] [address] 07363- 1535 Aug, [facility] [address] 36757- 9165 Jul, [facility] [address] 79421- 2393 Jun, [facility] [address] 65987- 1678 Jun, Chest pain 786.50 and Lumbago 724.2 [place] [address] 03154- 9282 Jun, [facility] [id number] [place] [address] 53610- 3785 Jun, [facility] [address] [id number] Jun, Dental examination V72.2 [facility] [address] [place] [id number] [place] [address] 60385- 2613 Jun, [facility] [address] [place] [id number] [place] [address] 14712- 4152 May, Left shoulder pain 719.41 and Numbness and tingling of both legs 782.0 [facility] [address] [place] [id number] [place] [address] 17401- 7546 May, Cough 786.2 ; Numbness and tingling of both legs 782.0 and Acute rhinitis 460 [facility] [address] [place] [id number] [place] [address] 63295- 1727 May, [facility] [address] [place] [id number] [place] [address] 69408- 5273 Apr, [facility] [address] [place] [id number] [place] [address] 35001- 2345 Apr, Bilateral lower extremity edema 782.3 ; Lumbago 724.2 and Insomnia 780.52 [facility] [address] [place] [address] 70958- 7596 Apr, [facility] [address] [place] [id number] [place] [address] 41138- 7112 Apr, [facility] [address] [place] [id number] [place] [address] 12344- 4358 March, Seborrheic keratosis 702.19 and Skin lesion of face 709.9 [facility] [address] [place] [address] 39167- 6477 March, [facility] [address] [place] [address]- 6127 March, [facility] [place] [facility] [address] [id number] [place] [address]- 9490 March, [facility] [place] [facility] [address] [id number] [place] [address]- 9836 March, [facility] [place] [facility] [address] [id number] [place] [address]- 6422 14 Feb, 2015 [facility] [place] [facility] [address] [id number] [place] [address]- 3229 Feb, [facility] [place] [facility] [address] [id number] [place] [address]- 3045 25 Jan, 2015 [facility] [place] [facility] [address] [id number] [place] [address]- 8012 25 Jan, 2015 [facility] [place] [facility] [address] [id number] [place] [address]- 3015 16 Jan, 2015 [facility] [place] [facility] [address] [id number] [place] [address]- 3915 16 Jan, 2015 [facility] [place] [facility] [address] [id number] [place] [address]- 4349 16 Jan, 2015 [facility] [place] [facility] [address] [id number] [place] [address]- 4782 16 Jan, 2015 [facility] [place] [facility] [address] [id number] [place] [address]- 7687 13 Jan, 2015 [facility] [place] [facility] [address] [id number] [place] [address]- 2662 13 Jan, 2015 [facility] [place] [facility] [address] [id number] [place] [address]- 2492 13 Jan, 2015 [facility] [place] [facility] [address] [id number] [place] [address]- 6023 13 Jan, 2015 [facility] [place] [facility] [address] [id number] [place] [address]- 9288 10 Jan, 2015 [facility] [place] [facility] [address] [id number] [place] [address]- 0538 Dec, [facility] [place] [facility] [address] [id number] [place] [address]- 9134 Dec, [facility] [place] [facility] [address] [id number] [place] [address]- 7999 Dec, [facility] [place] [facility] [address] [id number] [place] [address]- 8298 Dec, [facility] [place] [facility] [address] [id number] [place] [address]- 9750 Dec, [facility] [place] [facility] [address] [id number] [place] [address]- 0045 Dec, [facility] [place] [facility] [address] [id number] [place] [address]- 4698 Nov, [facility] [place] [facility] [address] [id number] [place] [address]- 0602 Nov, [facility] [place] [facility] [address] [id number] [place] [address]- 6133 Nov, [facility] [place] [facility] [address] [id number] [address]- 0886 Nov, [facility] [place] [facility] [address] [id number], [place] [address]- 0413 Nov, [facility] [place] [facility] [address] [id number], [place] [address]- 4479 Nov, [facility] [place] [facility] [address] [id number], [place] [address]- 5896 Nov, [facility] [place] [facility] [address] [id number][place] [address]- 2425 Nov, [facility] [place] [facility] [address] [id number], [place] [address]- 2155 Nov, [facility] [place] [facility] [address] [id number], [place] [address]- 6031 Nov, [facility] [place] [facility] [address] [id number] [place] [address]- 4717 Nov, [facility] [place] [facility] [address] [id number] [place] [address]- 2156 Oct, [facility] [place] [facility] [address] [facility] [id number] [place] [address]- 6799 Oct, [facility] [place] [facility] [address] [id number] [place] [address]- 6677 Oct, [facility] [place] [facility] [address] [id number] [place] [address]- 4113 Oct, [facility] [place] [facility] [address] [facility] [id number] [place] [address]- 1672 Oct, [facility] [place] [facility] [id number] [place] [address]- 7795 Oct, [facility] [place] [facility] [address] [id number] [place] [address]- 0396 Oct, [facility] [place] [facility] [address] [facility] [id number] [place] [address]- 0760 Oct, [facility] [place] [facility] [address] [facility] [id number] [place] [address]- 0068 Oct, [facility] [place] [facility] [address] [id number] [place] [address]- 1955 Oct, [facility] [place] [facility] [address] [id number] [place] [address]- 5930 Sep, [facility] [place] [facility] [address] [id number] [place] [address]- 8233 Sep, [facility] [place] [facility] [address] [facility] [id number] [place] [address]- 1387 Sep, [facility] [place] [facility] [address] [facility] [id number] [place] [address]- 7372 Sep, [facility] [place] [facility] [address] [id number] [place] [address]- 9691 18 Sep, 2014 [facility] [place] [facility] [address] [id number] [place] [address]- 5903 18 Sep, 2014 [facility] [place] [facility] [address] [id number] [place] [address]- 5145 Sep, [facility] [place] [facility] [address] [id number] [place] [address]- 2906 Sep, [facility] [place] [facility] [address] [id number] [place] [address]- 2532 Sep, [facility] [place] [facility] [address] [id number] [place] [address] 17 Sep, 2014 [facility] [place] [facility] [address] [id number] [place] [address] Sep, [facility] [place] [facility] [address] [id number] [place] [address] Sep, [facility] [place] [facility] [address] [id number] [place] [address] Sep, [facility] [place] [facility] [address] [id number] [place] [address] 30 Aug, 2014 [facility] [place] [facility] [address] [id number] [place] [address] 30 Aug, 2014 [facility] [place] [facility] [address] [id number] [place] [address] 30 Aug, 2014 [facility] [place] [facility] [address] [id number] [place] [address] 30 Aug, 2014 [facility] [place] [facility] [address] [id number] [place] [address] 30 Aug, 2014 [facility] [place] [facility] [address] [id number] [place] [address] 30 Aug, 2014 [facility] [place] [facility] [address] [id number] [place] [address] Aug, [facility] [place] [facility] [address] [id number] [place] [address] Aug, [facility] [place] [facility] [address] [id number] [place] [address] Aug, [facility] [place] [facility] [address] [id number] [place] [address] Aug, [facility] [place] [facility] [address] [id number] [place] [address] Aug, [facility] [place] [facility] [address] [id number] [place] [address] Aug, [facility] [place] [facility] [address] [id number] [place] [address] Aug, [facility] [place] [facility] [address] [id number] [place] [address] Aug, [facility] [place] [facility] [address] [id number] [place] [address] Aug, [facility] [place] [facility] [address] [id number] [place] [address] Aug, [facility] [place] [facility] [address] [id number], [place] [address] Aug, [facility] [place] [facility] [address] [id number], [place] [address] Aug, [facility] [place] [facility] [address] [id number], [place] [address] 30 Jul, 2014 [facility] [place] [facility] [address] [id number] [place] [address] 30 Jul, 2014 [facility] [place] [facility] [address] [id number], [place] [address] 24 Jul, 2014 [facility] [place] [facility] [address] [id number], [place] [address] 24 Jul, 2014 [facility] [place] [facility] [address] [id number], [place] [address] Jul, [facility] [facility] [id number] [address] 23 Jul, 2014 [facility] [id number] [address] Jul, [facility] [address] [address] Jul, [facility] [id number] [place] [address] Jul, [facility] [id number] [place] [id number] Jul, [facility] [id number] [place] [address] Jul, [facility] [address] [place] [address] Jul, [facility] [id number] [place] [address] Jul, [facility] [id number] [place] [address] Jul, IMMUNIZATIONS No Known Immunizations SOCIAL HISTORY Never Assessed REASON FOR VISIT cough, head and chest congestion. nonproductive cough. been sick since wednesday. [email or web address] PLAN OF CARE Activity Details Follow Up prn Reason: VITAL SIGNS Height 60 in 2017-08-13 Weight 179.6 lbs 2017-08-13 Temperature 97.3 degrees Fahrenheit 2017-08-13 Heart Rate 80 bpm 2017-08-13 Respiratory Rate 20 2017-08-13 BMI 35.07 kg/m2 2017-08-13 Blood pressure systolic 136 mmHg 2017-08-13 Blood pressure diastolic 78 mmHg 2017-08-13 MEDICATIONS Medication Instructions Dosage Frequency Start Date End Date Duration Status Norvasc 5 MG TAKE 1 TABLET BY MOUTH ONCE A DAY 90 Active Lipitor 20 mg Orally Once a day take 1 tablet by Oral route at bedtime 1 time per day 24h Active Percocet 10-325 MG Orally every 6 hrs 1 tablet as needed 6h Active Gabapentin 600 MG Orally 3 times a day 1 tablet 8h Active Augmentin 875-125 MG Orally every 12 hrs 1 tablet 12h Jul, Aug, 10 day(s) Active Aspirin 81 MG Orally Once a day 1 tablet 24h Active Levemir FlexTouch 100 UNIT/ML INJECT 50 UNITS SUBCUTANEOUSLY TWICE DAILY 30 Active Tradjenta 5 MG TAKE ONE TABLET BY MOUTH ONCE DAILY 90 Active Amoxicillin Active Humalog 100 UNIT/ML Active Omeprazole 20 mg Orally Once a day TAKE ONE CAPSULE BY MOUTH ONCE DAILY 24h 30 days Active Zyrtec Allergy 10 MG Orally Once a day 1 tablet 24h Jul, Aug, 30 day(s) Active RESULTS No Results PROCEDURES Procedure Date Ordered Result Body Site [facility] VISIT ESTABLISHED PATIENT Aug 13, 2017 INSTRUCTIONS MEDICATIONS ADMINISTERED No Known Medications MEDICAL (GENERAL) HISTORY Type Description Date Medical History hearing loss Medical History 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 Medical History acute renal failure Medical History hyperlipidemia Medical History type II diabetes Medical History Arthritis Medical History degenerative disease lumbosacral spine Medical History chronic pain r/t DDD Medical History fibromyalgia Medical History [place]-stent to LAD Surgical History cholecystectomy 1983 Surgical [...] History Chest Pain 12/2016 Hospitalization History [facility]- Influenza illness, hyperglycemia 2017 Hospitalization History [facility]- High BS (Pt left AMA) 01/05/2018 Hospitalization History [facility]- DKA and UTI. Discharged 01/14/2018 Hospitalization History [facility]- Nausea and Vomiting, cannot urinate 01/18/2018
--- OUTSIDE RECORDS SUMMARY | 2018-06-01 10:05 | XMS REPORT ---
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 Name Role Phone MARCELINO BURKS Unavailable PROBLEMS Type Condition ICD9-CM Code [id number] Code Onset Dates Condition Status SNOMED Code Problem CAD (coronary artery disease) I25.10 Active 52317026 Problem Tobacco abuse counseling Z71.6 Active 314939379 Problem Tobacco abuse Z72.0 Active 98781300 Problem Arthritis M19.90 Active 5604788 Problem Primary insomnia F51.01 Active 1680148 Problem DM neuro manif type II E11.49 Active 00354796 Problem Chronic pain syndrome G89.4 Active 756484220 Problem Seasonal allergic rhinitis due to pollen J30.1 Active 24701168 Problem Dental caries K02.9 Active 78678788 Problem Alterations of sensations R20.9 Active 499306686 Problem Degenerative disc disease, lumbar M51.36 Active 89851394 Problem GERD (gastroesophageal reflux disease) K21.9 Active 070614916 Problem Fibromyalgia M79.7 Active 36020094 Problem 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 I10 Active 45374552 Problem Hyperlipidemia E78.5 Active 17505994 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 772505655 ALLERGIES No Information ENCOUNTERS Encounter Location Date Diagnosis [facility] [id number] [place] [address] 83183- 7165 Feb, [facility] [address] [id number] [address] 4097 Jan, Dysuria R30.0 [facility] [id number] [place] [address] 36935- 6872 Jan, Dysuria R30.0 [facility] [id number] [place] [address] 34729- 0274 Jan, Acute cystitis with hematuria N30.01 ; DM neuro manif type II E11.49 ; [facility] 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 ; 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 I10 and Hospital discharge follow-up Z09 [place] [address] 7[address]70- 1811 27 Dec, 2017 Chest pain, unspecified type R07.9 ; Dehydration E86.0 and Anuria R34 [address] 96375- 6352 Dec, [place] [address] 87987- 5168 Dec, Hyperglycemia R73.9 ; Dehydration E86.0 and Acute cystitis with hematuria N30.01 [facility] [place] [address] 0[address]01 -1823 Dec, [facility] [address] [address]2448 Dec, [facility] [place] [address] 25239 -9065 Dec, [facility] [address] 90253 -6120 Dec, Dysuria R30.0 ; Acute cystitis with hematuria N30.01 and Weakness R53.[address] 62344- 0564 Dec, [place] [address] [place] [id number] [place] [address] 03945- 3210 Nov, [place] [address] 61840- 7286 Nov, [place] [address] 51660- 7409 Nov, 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 I10 ; DM neuro manif type II E11.49 ; 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 ; Tobacco abuse Z72.0 ; Hyperlipidemia E78.5 ; Non-adherence to medical treatment Z91.19 ; GERD (gastroesophageal reflux disease) K21.9 ; Degenerative disc disease, lumbar M51.36 ; Fibromyalgia M79.7 ; Chronic pain syndrome G89.4 ; Dental caries K02.9 and Seasonal allergic rhinitis due to pollen J30.1 [facility] [id number] [place] [address] 53363- 2359 Nov, Alterations of sensations R20.9 [facility] [address] 39732- 7198 Sep, DM neuro manif type II E11.49 ; Hyperlipidemia E78.5 ; Degenerative disc disease, lumbar M51.36 and Chronic pain syndrome G89.4 [place] [address] 06669- 7847 Sep, Arthritis M19.[address] 64137- 8604 Sep, Type 2 diabetes mellitus without complication E11.9 ; GERD ( gastroesophageal reflux disease) K21.9 ; Arthritis M19.90 and Chronic pain syndrome G89.4 [place] [address] 04322- 5075 Sep, [place] [address] 11475- 5874 Aug, [place] [address] 12511- 6420 Aug, Type 2 diabetes mellitus without complication E11.9 [place] [address] 85770- 5197 Aug, [place] [address] 05763- 2938 Aug, [place] [address] 97401- 4094 Aug, [place] [address] 22455- 3558 Jul, [facility] [id number] [place] [address] 90901 -8877 22 Jul, 2017 Acute non-recurrent frontal sinusitis J01.10 [facility] [address] [place] [id number] [place] [address] 30050- 1906 20 Jul, 2017 CAD (coronary artery disease) I25.10 and GERD ( gastroesophageal reflux disease) K21.9 [place] [address] 64750- 1918 14 Jul, 2017 Localized swelling, mass and lump, neck R22.1 [place] [address] 35506- 6332 06 Jul, 2017 [place] [address] 14962- 6329 15 Jun, 2017 Type 2 diabetes mellitus without complication E11.9 ; Primary insomnia F51.01 ; Alterations of sensations R20.9 ; Hyperlipidemia E78.5 ; GERD (gastroesophageal reflux disease) K21.9 ; 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 I10 ; [facility] 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 ; Tobacco abuse Z72.0 ; Tobacco abuse counseling Z71.6 and CAD (coronary artery disease) I25.10 [place] [address] [place] [id number] [place] [address] 63551- 5016 May, [place] [address] [place] [address] [id number] [place] [address] 67214- 3048 May, Type 2 diabetes mellitus without complication E11.9 [place] [address] [place] [id number] [place] [address] 10119- 4966 May, [place] [address] 45060- 0232 March, [place] [address] 05637- 8976 Feb, [facility] [id number] [place] [address] 70077 -1421 Jan, Acute suppurative otitis media of left ear with spontaneous rupture of tympanic membrane, recurrence not specified H66.012 [place] [address] [place] [address] [id number] [place] [address] 55934- 1231 17 Dec, 2016 Type 2 diabetes mellitus without complication E11.9 ; Lumbago M54.5 ; Cervicalgia M54.2 ; Hyperlipidemia E78.5 ; GERD ( gastroesophageal reflux disease) K21.9 ; Chronic pain syndrome G89.4 ; Dysuria R30.0 and 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 I10 [place] [address] 25558- 3347 Oct, [place] [address] 59570- 7891 Sep, Diabetic mononeuropathy associated with type 2 diabetes mellitus E11.41 and Coughing R05 [place] [address] 61449- 9440 Sep, Diabetic mononeuropathy associated with type 2 diabetes mellitus E11.41 and Coughing R05 [place] [address] [place] [id number] [place] [address] 37531- 8881 Sep, Onychomycosis B35.1 ; Neuritis M79.2 and Type 2 diabetes mellitus without complication E11.9 [place] [address] [place] [id number] [place] [address] 51067- 2475 Sep, [place] [address] 70613- 9630 Sep, Cough R05 ; Seasonal allergic rhinitis due to pollen J30.1 and Acute upper respiratory infection, unspecified J06.9 [place] [address] 83274- 3466 Sep, [place] [address] 30864- 7835 Aug, [place] [address] 24221- 7497 13 Jul, 2016 Type 2 diabetes mellitus without complication E11.9 ; Chronic pain G89.29 ; 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 I10 and Acute non-recurrent maxillary sinusitis J01.00 [place] [address] [place] [id number] [place] [address] 02857- 1645 Jul, Chronic pain syndrome G89.4 ; Lumbago M54.5 and Cervicalgia M54.2 [place] [address] [place] [id number] [place] [address] 09115- 3778 Jul, [place] [address] 78295- 0065 Jul, [place] [address] 65667- 8971 Jun, Onychomycosis B35.1 ; Onychocryptosis L60.0 and DM neuro manif type II E11.[address] 03783- 9949 Jun, Type 2 diabetes mellitus without complication E11.9 ; Pain in unspecified hip M25.559 ; Other chronic pain G89.29 ; Lumbago M54.5 ; Chronic pain G89.29 ; Insomnia, unspecified G47.00 ; GERD (gastroesophageal reflux disease) K21.9 and Dental caries K02.9 [place] [address] [address] [id number] [place] [address] 30818- 9928 Jun, Type 2 diabetes mellitus without complication E11.9 ; Lumbago M54.5 ; Chronic pain G89.29 ; Insomnia, unspecified G47.00 ; GERD ( gastroesophageal reflux disease) K21.9 ; Dental caries K02.9 ; Pain in unspecified hip M25.559 and Other chronic pain G89.29 [place] [address] [address] [id number] [place] [address] 74937- 0753 May, [place] [address] [id number] [place] [address] 20837- 2176 May, Type 2 diabetes mellitus without complication E11.9 ; 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 I10 ; Chronic pain syndrome G89.4 ; Other seasonal allergic rhinitis J30.2 and Insomnia, unspecified G47.00 [place] [address] [id number] [place] [address] 81247- 4172 Apr, [place] [address] 24269- 1022 Apr, Hypertension I10 and Chronic pain G89.29 [place] [address] 40296- 2069 March, Onychomycosis B35.1 ; Onychocryptosis L60.0 and Type 2 diabetes mellitus without complication E11.9 [place] [address] 87713- 8868 March, Type 2 diabetes mellitus without complication E11.9 ; 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 I10 ; Alterations of sensations R20.9 ; Chronic pain syndrome G89.4 ; Tobacco abuse Z72.0 and Tobacco abuse counseling Z71.[address] 62666- 9123 Feb, Cough R05 ; Tobacco abuse counseling Z71.6 ; Chronic pain G89.29 and Type 2 diabetes mellitus without complication E11.9 [place] [address] [address] [id number] [place] [address] 05618- 1527 Feb, [place] [address] [place] [id number] [place] [address] 19103- 1567 Feb, Type 2 diabetes mellitus without complication E11.9 ; Lumbago M54.5 ; Cervicalgia M54.2 ; Degenerative disc disease, lumbar M51.36 and Numbness and tingling of both legs 782.0 [facility] [address] [place] [address] [id number] Jan, Dental caries K02.9 and Encounter for dental examination Z01.20 [place] [address] [place] [id number] [place] [address] 38468- 8968 Jan, Type 2 diabetes mellitus without complication E11.9 [place] [address] 44575- 7856 Jan, Type 2 diabetes mellitus without complication E11.9 ; Numbness and tingling of both legs 782.0 ; Fibromyalgia M79.7 ; Hyperlipidemia E78.5 ; Lumbago M54.5 ; Cervicalgia M54.2 ; Hypertension I10 ; CAD (coronary artery disease) I25.10 ; Tobacco abuse Z72.0 ; Tobacco abuse counseling Z71.6 and GERD (gastroesophageal reflux disease) K21.9 [place] [address] 75221- 6067 Jan, [place] [address] 37319- 7282 Dec, [facility] [address] [id number] Dec, Dental examination Z01.20 and Dental caries K02.9 [place] [address] 76604- 4101 Dec, Edema R60.9 ; Type 2 diabetes mellitus without complication E11.9 ; Hypertension I10 and Mouth pain K13.79 [place] [address] 29005- 1922 Dec, Degenerative disc disease, lumbar M51.36 [place] [address] 58833- 3225 Dec, [place] [address] 81792- 5430 Nov, Insomnia, unspecified G47.00 [place] [address] 18354- 1726 Nov, Type 2 diabetes mellitus without complication E11.9 ; Lumbago M54.5 ; Degenerative disc disease, lumbar M51.36 ; Fibromyalgia M79.7 ; Coronary artery disease I25.10 ; Hyperlipidemia E78.5 ; Controlled substance agreement signed Z79.899 ; Dysuria R30.0 ; Insomnia, unspecified G47.00 ; GERD ( gastroesophageal reflux disease) K21.9 ; Hypertension 401.9 and [facility] 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 [place] [address] 16870- 4615 Nov, [place] [address] 40801- 3660 Oct, Degenerative disc disease, lumbar M51.36 ; Cervicalgia M54.2 ; Insomnia, unspecified G47.00 ; Decreased GFR R94.4 and GERD ( gastroesophageal reflux disease) K21.9 [place] [address] 62943- 9692 Oct, Lumbago M54.5 [place] [address] 20520- 2993 Oct, Low back pain M54.5 [place] [address] 15410- 6432 Oct, [place] [address] 02048- 4666 Oct, Disorientation R41.0 [place] [address] 53353- 8794 Oct, Type 2 diabetes mellitus without complication E11.9 ; Disorientation R41.0 and Chest pain R07.9 [place] [address] 66012- 5010 Oct, [place] [address] 49545- 6851 Sep, Low back pain M54.5 [place] [address] 37221- 2951 Sep, Insomnia, unspecified G47.00 [place] [address] 60615- 1609 Aug, Degenerative disc disease, lumbar M51.36 ; Type 2 diabetes mellitus without complication E11.9 and Encounter for immunization Z23 [place] [address] [address]- 8343 Aug, [facility] [address] [place] [address] 158174- 2827 Aug, [facility] [address] 2584 Aug, [facility] [id number] [place] [address] 720507- 7952 Jul, [facility] [address] [place] [address] 99857- 5499 Jun, [facility] [id number] [place] [address] 72387- 8530 Jun, Chest pain 786.50 and Lumbago 724.2 [facility] [address] [place] [address] 45906- 4825 Jun, [facility] [address] [place] [address] 65332- 1835 Jun, [facility] [address] [place] [address] [id number] Jun, Dental examination V72.2 [facility] [address] [address]- 1850 Jun, [facility] [address] [place] [address] 58691- 6821 May, Left shoulder pain 719.41 and Numbness and tingling of both legs 782.0 [facility] [address] [address]- 5063 May, Cough 786.2 ; Numbness and tingling of both legs 782.0 and Acute rhinitis 460 [facility] [address] [address]- 8179 May, [facility] [id number] [place] [address] 82860- 7616 Apr, [facility] [address], [place] [address]- 5015 Apr, Bilateral lower extremity edema 782.3 ; Lumbago 724.2 and Insomnia 780.52 [facility] [address] [address]- 5129 Apr, [facility] [id number] [address]- 9846 Apr, [facility] [id number] [address]- 2210 March, Seborrheic keratosis 702.19 and Skin lesion of face 709.9 [facility] [address], [place] [address]- 6996 March, [facility] [address] [address]- 5516 March, [facility] [address], [place] [address]- 6788 March, [facility] [address] [address]- 8010 March, [facility] [address], [place] [address]- 5414 Feb, [facility] [address] [address]- 9453 Feb, [facility] [address], [place] [address]- 5375 Jan, [facility] [address] [address]- 9571 Jan, [facility] [address], [place] [address]- 6224 Jan, [facility] [address], [place] [address]- 0862 Jan, [facility] [id number] [place] [address]- 5867 16 Jan, 2014 [facility] [place] [facility] [address] [id number] [place] [address]- 7774 16 Jan, 2015 [facility] [place] [facility] [address] [id number] [place] [address]- 4637 13 Jan, 2015 [facility] [place] [facility] [address] [id number] [place] [address]- 2050 13 Jan, 2015 [facility] [place] [facility] [address] [id number] [place] [address]- 8026 13 Jan, 2015 [facility] [place] [facility] [address] [id number] [place] [address]- 1270 13 Jan, 2015 [facility] [place] [facility] [address] [facility] [id number] [place] [address]- 1746 10 Jan, 2015 [facility] [place] [facility] [address] [id number] [place] [address]- 7782 27 Dec, 2014 [facility] [place] [facility] [address] [id number] [place] [address]- 2292 Dec, [facility] [place] [facility] [address] [id number] [place] [address]- 2350 Dec, [facility] [place] [facility] [address] [facility] [id number] [place] [address]- 2433 Dec, [facility] [place] [facility] [address] [id number] [place] [address]- 7447 Dec, [facility] [place] [facility] [address] [id number] [place] [address]- 0036 Dec, [facility] [place] [facility] [address] [id number] [place] [address]- 6172 Nov, [facility] [place] [facility] [address] [id number] [place] [address]- 9926 Nov, [facility] [place] [facility] [address] [id number] [place] [address]- 1939 14 Nov, 2014 [facility] [place] [facility] [address] [id number] [place] [address]- 2890 14 Nov, 2014 [facility] [place] [facility] [address] [id number] [place] [address]- 2729 Nov, [facility] [place] [facility] [address] [id number] [place] [address]- 4591 Nov, [facility] [place] [facility] [address] [id number] [place] [address]- 1914 Nov, [facility] [place] [facility] [address] [id number] [place] [address]- 7518 Nov, [facility] [place] [facility] [address] [id number] [place] [address]- 3544 Nov, [facility] [place] [facility] [address] [id number] [place] [address]- 5905 Nov, [facility] [place] [facility] [address] [id number] [place] [address]- 3213 Nov, [facility] [place] [facility] [address] [id number] [place] [address]- 2453 Oct, [facility] [place] [facility] [address] [id number] [place] [address]- 7362 Oct, [facility] [place] [facility] [address] [id number] [place] [address]- 8893 Oct, [facility] [place] [facility] [address] [id number] [place] [address]- 1964 Oct, [facility] [place] [facility] [address] [id number] [place] [address]- 4568 Oct, [facility] [place] [facility] [address] [id number] [place] [address]- 8744 Oct, [facility] [place] [facility] [address] [id number] [place] [address]- 4172 Oct, [facility] [place] [facility] [address] [id number] [place] [address]- 8351 09 Oct, 2014 [facility] [place] [facility] [address] [id number] [place] [address]- 3091 Oct, [facility] [place] [facility] [address] [id number] [place] [address]- 1985 Oct, [facility] [place] [facility] [address] [id number] [place] [address]- 8593 Sep, [facility] [place] [facility] [address] [id number] [place] [address]- 0330 Sep, [facility] [place] [facility] [address] [id number] [place] [address]- 0771 Sep, [facility] [place] [facility] [address] [id number] [place] [address]- 0556 Sep, [facility] [place] [facility] [address] [id number] [place] [address]- 3517 Sep, [facility] [place] [facility] [address] [id number] [place] [address]- 1567 Sep, [facility] [place] [facility] [address] [id number] [place] [address]- 4741 Sep, [facility] [place] [facility] [address] [id number] [place] [address]- 5166 Sep, [facility] [place] [facility] [address] [id number] [place] [address]- 5452 Sep, [facility] [place] [facility] [address] [id number] [place] [address]- 6272 17 Sep, 2014 [facility] [place] [facility] [address] [id number] [place] [address]- 1322 13 Sep, 2014 [facility] [place] [facility] [address] [id number] [place] [address]- 3997 Sep, [facility] [place] [facility] [address] [id number] [place] [address]- 8661 Sep, [facility] [place] [facility] [address] [id number] [place] [address]- 6321 Aug, [facility] [place] [facility] [address] [id number] [place] [address]- 8653 Aug, [facility] [place] [facility] [address] [id number] [place] 1635 Aug, [facility] [place] [facility] [address] [id number] [place] [address]- 6502 Aug, [facility] [place] [facility] [address] [id number] [place] [address]- 5475 Aug, [facility] [place] [facility] [address] [id number] [place] [address]- 8126 Aug, [facility] [place] [facility] [address] [id number] [place] [address]- 5632 Aug, [facility] [place] [facility] [address] [id number] [place] [address]- 9016 Aug, [facility] [place] [facility] [address] [id number] [place] [address] Aug, [facility] [place] [facility] [address] [id number], [place] [address] Aug, [facility] [place] [facility] [address] [id number], [place] [address] Aug, [facility] [place] [facility] [address] [id number], [place] [address] Aug, [facility] [place] [facility] [address] [id number], [place] [address] Aug, [facility] [place] [facility] [address] [id number], [place] [address] Aug, [facility] [place] [facility] [address] [id number] Aug, [facility] [place] [facility] [address] [id number], [place] [address] Aug, [facility] [place] [facility] [address] [id number] [place] [address] Aug, [facility] [place] [facility] [address] [id number] [place] [address] Aug, [facility] [place] [facility] [address] [id number] [place] [address] 30 Jul, 2013 [facility] [place] [facility] [address] [id number] [place] [address] 30 Jul, 2013 [facility] [place] [facility] [address] [id number] [place] [address] 24 Jul, 2013 [facility] [place] [facility] [address] [id number] [place] [address] 24 Jul, 2013 [facility] [place] [facility] [address] [id number] [place] [address] 23 Jul, 2013 [facility] [place] [facility] [address] [id number] [place] [address] 23 Jul, 2013 [facility] [place] [facility] [address] [id number] [place] [address] 15 Jul, 2014 [facility] [place] [facility] [address] [id number] [place] [address] 15 Jul, 2013 [facility] [place] [facility] [address] [id number], [place] [address] 15 Jul, 2013 [facility] [place] [facility] [address] [id number], [place] [address] 15 Jul, 2013 [facility] [place] [facility] [address] [id number] [place] [address] 254 11 Jul, 2013 [facility] [place] [facility] [address] [id number] [place] [address] 11 Jul, 2013 [facility] [place] [facility] [address] [id number] [place] [address] 11 Jul, 2013 [facility] [place] [facility] [address] [id number] [place] [address] 11 Jul, 2014 IMMUNIZATIONS No Known Immunizations SOCIAL HISTORY Never Assessed REASON FOR VISIT pt came to clinic after accidentally injecting 50units of Humalog instead of Levemir at 1200, came to clinic at 1300, FSBS 293, pt states son dropped her off , rechecked at 1330, FSBS 207, pt denies c/o at this time and feels comfortable returning home, pt left clinic accompanied by son and instructed to check FSBS frequently, verbalizes understaning---DBennettRN PLAN OF CARE VITAL SIGNS MEDICATIONS Unknown Medications RESULTS Name Result Date Reference Range GLUCOSE FINGERSTICK (IN HOUSE) GLU FINGERSTICK 207 PC Lot # [id number] Exp date 07/10/17 PROCEDURES Procedure Date Ordered Result Body Site GLUCOSE BLOOD TEST June 17, 2017 INSTRUCTIONS MEDICATIONS ADMINISTERED No Known Medications [...] Influenza illness, hyperglycemia 2017 Hospitalization History ED [place]- High BS (Pt left AMA) 01/05/2018 Hospitalization History [facility]- DKA and UTI. Discharged 01/14/2018 Hospitalization History ED [place]- Nausea and Vomiting, cannot urinate 01/18/2018
--- OUTSIDE RECORDS SUMMARY | 2018-06-01 10:05 | XMS REPORT ---
Author Author JOSSY BARRETT Organization [facility] Address [address] 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 Corrugator Operator Helper Name Role Phone JOSSY BARRETT Unavailable PROBLEMS Type Condition ICD9-CM Code YHF55-QO Code Onset Dates Condition Status SNOMED Code Problem Tobacco abuse counseling Z71.6 Active 235081520 Problem DM neuro manif type II E11.49 Active 37933572 Problem Chronic pain syndrome G89.4 Active 188677982 Problem Other obesity due to excess calories E66.09 Active 165897443 Problem Body mass index (BMI) of 33.0-33.9 in adult Z68.33 Active 178878027 Problem Seasonal allergic rhinitis due to pollen J30.1 Active 05504900 Problem Dental caries K02.9 Active 44106204 Problem Arthritis M19.90 Active 6454605 Problem Primary insomnia F51.01 Active 7414663 Problem Hyperlipidemia E78.5 Active 16470322 Problem Degenerative disc disease, lumbar M51.36 Active 49608878 Problem Alterations of sensations R20.9 Active 676415678 Problem residential 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 Active 023643876 Problem 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 I10 Active 25898869 Problem Fibromyalgia M79.7 Active 66242113 Problem CAD (coronary artery disease) I25.10 Active 61465605 Problem GERD (gastroesophageal reflux disease) K21.9 Active 382061583 Problem Tobacco abuse Z72.0 Active 94475696 ALLERGIES No Information ENCOUNTERS Encounter Location Date Diagnosis [facility] [address] [facility] [id number] [address] Apr, [facility] [id number] [place] [address] 05857- 7167 March, 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 I10 ; DM neuro manif type II E11.49 and GERD (gastroesophageal reflux disease) K21.9 [facility] [address] [place] [address] 72330- 0075 March, DM neuro manif type II E11.49 and GERD (gastroesophageal reflux disease) K21.9 [place] [address] 81018- 4304 March, [place] [address] 15501- 6823 Feb, Tobacco abuse Z72.0 [place] [address] 44975- 6747 Feb, Tobacco abuse Z72.0 [place] [address] 08578- 1192 Feb, Hypokalemia E87.6 [place] [address] 70501- 7080 Feb, Hyperlipidemia E78.5 ; 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 I10 ; DM neuro manif type II E11.49 ; Fibromyalgia M79.7 ; Acute non-recurrent frontal sinusitis J01.10 ; Other obesity due to excess calories E66.09 and Body mass index (BMI) of 33.0-33.9 in adult Z68.33 [place] [address] 94514- 0220 05 Jan, 2018 Dysuria R30.0 [place] [address] 03990- 4566 Jan, Dysuria R30.0 [place] [address] 14173- 9176 Jan, Acute cystitis with hematuria N30.01 ; DM neuro manif type II E11.49 ; residential 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 ; 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 I10 and Hospital discharge follow-up Z09 [place] [address] 85555- 8677 27 Dec, 2017 Chest pain, unspecified type R07.9 ; Dehydration E86.0 and Anuria R34 [place] [address] [place] [address]- 7989 Dec, [place] [address] 83062- 8802 Dec, Hyperglycemia R73.9 ; Dehydration E86.0 and Acute cystitis with hematuria N30.[address] [facility] [address] [address]34 -[address] Dec, [facility] [address] [address]43 [address] Dec, [facility] [place] [address] 76040 -0922 Dec, [facility] [place] [address] 22215 -6729 16 Dec, 2017 Dysuria R30.0 ; Acute cystitis with hematuria N30.01 and Weakness R53.1 [place] [address] 11878- 1361 Dec, [place] [address] 77601- 0717 Nov, [place] [address] 73452- 6764 Nov, [place] [address] [place] [id number] [place] [address] 55073- 6593 Nov, 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 I10 ; DM neuro manif type II E11.49 ; residential 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 ; Tobacco abuse Z72.0 ; Hyperlipidemia E78.5 ; Non-adherence to medical treatment Z91.19 ; GERD (gastroesophageal reflux disease) K21.9 ; Degenerative disc disease, lumbar M51.36 ; Fibromyalgia M79.7 ; Chronic pain syndrome G89.4 ; Dental caries K02.9 and Seasonal allergic rhinitis due to pollen J30.1 [place] [id number] [place] [address] 80475- 9115 Nov, Alterations of sensations R20.9 [facility] [address] [place] [id number] [place] [address] 40930- 2398 30 Sep, 2017 DM neuro manif type II E11.49 ; Hyperlipidemia E78.5 ; Degenerative disc disease, lumbar M51.36 and Chronic pain syndrome G89.4 [facility] [address] [place] [id number] [place] [address] 08215- 2633 Sep, Arthritis M19.90 [facility] [address] 05941- 8571 Sep, Type 2 diabetes mellitus without complication E11.9 ; GERD ( gastroesophageal reflux disease) K21.9 ; Arthritis M19.90 and Chronic pain syndrome G89.4 [place] [address] 02020- 9398 Sep, [facility] [address] 03296- 9973 Aug, [facility] [address] 28989- 3860 Aug, Type 2 diabetes mellitus without complication E11.9 [facility] [address] 87765- 5371 Aug, [facility] [address] [place] [id number] [place] [address] 05252- 7880 Aug, [place] [address] 58769- 3757 Aug, [facility] [address] [place] [id number] [place] [address] 71862- 4054 Jul, [facility] [address] [place] [id number] [place] [address] 69498 -4135 22 Jul, 2017 Acute non-recurrent frontal sinusitis J01.10 [facility] [address] [place] [id number] [place] [address] 38050- 3672 20 Jul, 2017 CAD (coronary artery disease) I25.10 and GERD ( gastroesophageal reflux disease) K21.9 [place] [address] [place] [id number] [place] [address] 18931- 9902 14 Jul, 2017 Localized swelling, mass and lump, neck R22.1 [place] [address] [place] [id number] [place] [address] 28403- 4575 06 Jul, 2017 [place] [address] 70253- 4450 15 Jun, 2017 Type 2 diabetes mellitus without complication E11.9 ; Primary insomnia F51.01 ; Alterations of sensations R20.9 ; Hyperlipidemia E78.5 ; GERD (gastroesophageal reflux disease) K21.9 ; 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 I10 ; 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 [address] [place] [id number] [place] [address] 93526 -9659 Jan, Acute suppurative otitis media of left ear with spontaneous rupture of tympanic membrane, recurrence not specified H66.012 [place] [address] [place] [id number] [place] [address] 49977- 2410 17 Dec, 2016 Type 2 diabetes mellitus without complication E11.9 ; Lumbago M54.5 ; Cervicalgia M54.2 ; Hyperlipidemia E78.5 ; GERD ( gastroesophageal reflux disease) K21.9 ; Chronic pain syndrome G89.4 ; Dysuria R30.0 and 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 I10 [place] [address] 21930- 0851 Oct, [place] [address] 11575- 8969 30 Sep, 2016 Diabetic mononeuropathy associated with type 2 diabetes mellitus E11.41 and Coughing R05 [place] [address] 30191- 4391 Sep, Diabetic mononeuropathy associated with type 2 diabetes mellitus E11.41 and Coughing R05 [place] [address] 36493- 4973 18 Sep, 2016 Onychomycosis B35.1 ; Neuritis M79.2 and Type 2 diabetes mellitus without complication E11.[address] 59744- 7627 Sep, [place] [address] 90433- 3551 03 Sep, 2016 Cough R05 ; Seasonal allergic rhinitis due to pollen J30.1 and Acute upper respiratory infection, unspecified J06.[address] 97308- 6580 02 Sep, 2016 [place] [address] 26558- 4618 Aug, [place] [address] 16738- 4467 13 Jul, 2016 Type 2 diabetes mellitus without complication E11.9 ; Chronic pain G89.29 ; 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 I10 and Acute non-recurrent maxillary sinusitis J01.[address] 19271- 0432 02 Jul, 2016 Chronic pain syndrome G89.4 ; Lumbago M54.5 and Cervicalgia M54.[address] 37635- 1665 Jul, [place] [address] [place] [id number] [place] [address] 35151- 9516 Jul, [place] [address] 19266- 3075 Jun, Onychomycosis B35.1 ; Onychocryptosis L60.0 and DM neuro manif type II E11.[address] 89650- 5088 Jun, Type 2 diabetes mellitus without complication E11.9 ; Pain in unspecified hip M25.559 ; Other chronic pain G89.29 ; Lumbago M54.5 ; Chronic pain G89.29 ; Insomnia, unspecified G47.00 ; GERD (gastroesophageal reflux disease) K21.9 and Dental caries K02.9 [place] [id number] [place] [address] 06581- 3217 Jun, Type 2 diabetes mellitus without complication E11.9 ; Lumbago M54.5 ; Chronic pain G89.29 ; Insomnia, unspecified G47.00 ; GERD ( gastroesophageal reflux disease) K21.9 ; Dental caries K02.9 ; Pain in unspecified hip M25.559 and Other chronic pain G89.29 [place] [id number] [place] [address] 10808- 0137 May, [place] [address] [place] [id number] [place] [address] 63997- 1539 May, Type 2 diabetes mellitus without complication E11.9 ; 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 I10 ; Chronic pain syndrome G89.4 ; Other seasonal allergic rhinitis J30.2 and Insomnia, unspecified G47.[address] 26537- 2771 Apr, [place] [id number] [place] [address] 68379- 2798 Apr, Hypertension I10 and Chronic pain G89.[address] 05073- 9775 March, Onychomycosis B35.1 ; Onychocryptosis L60.0 and Type 2 diabetes mellitus without complication E11.9 [place] [id number] [place] [address] 88400- 6994 March, Type 2 diabetes mellitus without complication E11.9 ; 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 I10 ; Alterations of sensations R20.9 ; Chronic pain syndrome G89.4 ; Tobacco abuse Z72.0 and Tobacco abuse counseling Z71.6 [place] [id number] [place] [address] 76818- 4954 Feb, Cough R05 ; Type 2 diabetes mellitus without complication E11.9 ; Tobacco abuse counseling Z71.6 and Chronic pain G89.29 [place] [id number] [place] [address] 16289- 4432 Feb, [address] 94449- 5117 Feb, Type 2 diabetes mellitus without complication E11.9 ; Lumbago M54.5 ; Cervicalgia M54.2 ; Degenerative disc disease, lumbar M51.36 and Numbness and tingling of both legs 782.0 [facility] [address] [place] [id number] [place] [address] [id number] 24 Jan, 2016 Dental caries K02.9 and Encounter for dental examination Z01.20 [place] [id number] [place] [address] 49621- 1882 Jan, Type 2 diabetes mellitus without complication E11.9 [place] [id number] [place] [address] 70954- 9542 Jan, Type 2 diabetes mellitus without complication E11.9 ; Numbness and tingling of both legs 782.0 ; Fibromyalgia M79.7 ; Hyperlipidemia E78.5 ; Lumbago M54.5 ; Cervicalgia M54.2 ; Hypertension I10 ; CAD (coronary artery disease) I25.10 ; Tobacco abuse Z72.0 ; Tobacco abuse counseling Z71.6 and GERD (gastroesophageal reflux disease) K21.9 [place] [address] [place] [address] 36768- 3430 Jan, [place] [address] 12794- 4648 Dec, [facility] [address] [place] [id number] [place] [address] [id number] Dec, Dental examination Z01.20 and Dental caries K02.[address] 08280- 1308 Dec, Edema R60.9 ; Type 2 diabetes mellitus without complication E11.9 ; Hypertension I10 and Mouth pain K13.[address] 48402- 3374 Dec, Degenerative disc disease, lumbar M51.[address] 07621- 4889 Dec, [address] 78688- 6258 Nov, Insomnia, unspecified G47.00 [place] [id number] [place] [address] 28320- 9546 Nov, Type 2 diabetes mellitus without complication E11.9 ; Lumbago M54.5 ; Degenerative disc disease, lumbar M51.36 ; Fibromyalgia M79.7 ; Coronary artery disease I25.10 ; Hyperlipidemia E78.5 ; Controlled substance agreement signed Z79.899 ; Dysuria R30.0 ; Insomnia, unspecified G47.00 ; GERD ( gastroesophageal reflux disease) K21.9 ; Hypertension 401.9 and residential 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 22437- 2718 Nov, [address] 12736- 9593 Oct, Degenerative disc disease, lumbar M51.36 ; Cervicalgia M54.2 ; Insomnia, unspecified G47.00 ; Decreased GFR R94.4 and GERD ( gastroesophageal reflux disease) K21.9 [facility] [address] [place] [id number] [place] [address] 82021- 3846 Oct, Lumbago M54.5 [facility] [address] [place] [id number] [place] [address] 00688- 9598 Oct, Low back pain M54.5 [facility] [address] 09337- 6272 Oct, [facility] [address] 89800- 2152 Oct, Disorientation R41.0 [place] [address] 92647- 1925 Oct, Type 2 diabetes mellitus without complication E11.9 ; Disorientation R41.0 and Chest pain R07.9 [place] [address] 60976- 6481 Oct, [facility] [address] 32374- 5398 Sep, Low back pain M54.5 [facility] [address] 54903- 1023 Sep, Insomnia, unspecified G47.00 [place] [address] 88385- 3655 Aug, Degenerative disc disease, lumbar M51.36 ; Type 2 diabetes mellitus without complication E11.9 and Encounter for immunization Z23 [facility] [address] [place] [id number] [place] [address] 44796- 0335 Aug, [place] [address] 65495- 8539 Aug, [facility] [address] 84421- 9622 Aug, [facility] [address] [place] [address]- 9238 Jul, [facility] [address] [place] [id number] [place] [address] 93250- 1413 Jun, [facility] [address] [place] [id number] [place] [address] 68501- 0401 Jun, Chest pain 786.50 and Lumbago 724.2 [facility] [address] [place] [id number] [place] [address] 53376- 2188 Jun, [facility] [address] [place] [id number] [place] [address] 68285- 0845 Jun, [facility] [address] [place] [id number] [place] [address] [id number] Jun, Dental examination V72.2 [facility] [address] [place] [id number] [place] [address] 73623- 8975 Jun, [facility] [address] [place] [id number] [place] [address] 80267- 3214 May, Left shoulder pain 719.41 and Numbness and tingling of both legs 782.0 [facility] [address] [place] [id number] [place] [address] 87302- 0953 May, Cough 786.2 ; Numbness and tingling of both legs 782.0 and Acute rhinitis 460 [facility] [address] [place] [id number] [place] [address] 08925- 4820 May, [facility] [address] [place] [id number] [place] [address] 37433- 1982 Apr, [facility] [address] [place] [id number] [place] [address] 36822- 9064 Apr, Bilateral lower extremity edema 782.3 ; Lumbago 724.2 and Insomnia 780.52 [facility] [address] [place] [id number] [place] [address] 40896- 8320 Apr, [facility] [address] [place] [address]- 7061 Apr, [facility] [address] [facility] [id number], [place] [address]- 3389 March, Seborrheic keratosis 702.19 and Skin lesion of face 709.9 [facility] [address] [facility] [id number], [place] [address]- 3678 March, [facility] [address] [facility] [id number], [place] [address]- 7202 March, [facility] [address] [facility] [id number] [place] [address]- 3708 March, [facility] [address] [facility] [id number], [place] [address]- 3486 March, [facility] [address] [place] [id number] [place] [place] [address]- 0743 Feb, [facility] [address] [facility] [id number], [place] [address]- 7087 Feb, [facility] [place] [facility] [address] [facility] [id number], [place] [address]- 5283 Jan, [facility] [address] [facility] [id number], [place] [address]- 3041 Jan, [facility] [place] [facility] [address] [facility] [id number], [place] [address]- 2089 16 Jan, 2015 [facility] [place] [facility] [address] [facility] [id number], [place] [address]- 0069 16 Jan, 2015 [facility] [place] [facility] [address] [facility] [id number] [place] [address]- 6924 16 Jan, 2015 [facility] [place] [facility] [address] [facility] [id number], [place] [address]- 8277 16 Jan, 2015 [facility] [place] [facility] [address] [facility] [id number][place]- 3116 13 Jan, 2015 [facility] [place] [facility] [address] [facility] [id number] [place] [address]- 0381 13 Jan, 2015 [facility] [place] [facility] [address] [id number] [place] [address]- 3080 13 Jan, 2015 [facility] [place] [facility] [address] [id number] [place] [address]- 6078 13 Jan, 2015 [facility] [place] [facility] [address] [id number] [place] [address]- 1075 10 Jan, 2015 [facility] [place] [facility] [address] [id number] [place] [address]- 4762 27 Dec, 2014 [facility] [place] [facility] [address] [id number] [place] [address]- 4622 Dec, [facility] [place] [facility] [address] [id number] [place] [address]- 4392 Dec, [facility] [place] [facility] [address] [id number] [place] [address]- 6814 26 Dec, 2014 [facility] [place] [facility] [address] [id number] [place] [address]- 7359 12 Dec, 2014 [facility] [place] [facility] [address] [id number] [place] [address]- 7863 12 Dec, 2014 [facility] [place] [facility] [address] [id number] [place] [address]- 4325 15 Nov, 2014 [facility] [place] [facility] [address] [id number] [place] [address]- 9154 15 Nov, 2014 [facility] [place] [facility] [address] [id number] [place] [address]- 4585 14 Nov, 2014 [facility] [place] [facility] [address] [id number] [place] [address]- 1398 14 Nov, 2014 [facility] [place] [facility] [address] [id number] [place] [address]- 2034 13 Nov, 2014 [facility] [place] [facility] [address] [id number] [place] [address]- 8736 Nov, [facility] [place] [facility] [address] [id number] [place] [address]- 8337 Nov, [facility] [place] [facility] [address] [id number] [place] [address]- 7456 Nov, [facility] [place] [facility] [address] [id number] [place] [address]- 2424 Nov, [facility] [place] [facility] [address] [id number] [place] [address]- 0191 Nov, [facility] [place] [facility] [address] [id number] [place] [address]- 8008 Nov, [facility] [place] [facility] [address] [id number] [place] [address]- 4219 Oct, [facility] [place] [facility] [address] [id number] [place] [address]- 1377 Oct, [facility] [place] [facility] [address] [id number] [place] [address]- 9151 Oct, [facility] [place] [facility] [address] [id number] [place] [address]- 3787 Oct, [facility] [place] [facility] [address] [id number] [place] [address]- 3777 Oct, [facility] [place] [facility] [address] [id number] [place] [address]- 7770 Oct, [facility] [place] [facility] [address] [id number], [place] [address]- 0725 Oct, [facility] [place] [facility] [address] [id number] [place] [address]- 9789 Oct, [facility] [place] [facility] [address] [id number] [place] [address]- 6209 Oct, [facility] [place] [facility] [address] [id number] [place] [address]- 2160 Oct, [facility] [place] [facility] [address] [id number], [place] [address]- 6257 Sep, [facility] [place] [facility] [address] [id number] [place] [address]- 4768 Sep, [facility] [place] [facility] [address] [id number] [place] [address]- 5256 Sep, [facility] [place] [facility] [address] [facility] [id number] [place] [address]- 1439 Sep, [facility] [place] [facility] [address] [id number] [place] [address]- 5921 Sep, [facility] [place] [facility] [address] [id number] [place] [address]- 6205 Sep, [facility] [place] [facility] [address] [id number] [place] [address]- 7801 Sep, [facility] [place] [facility] [address] [facility] [id number] [place] [address] Sep, [facility] [place] [facility] [address] [id number] [place] [address] Sep, [facility] [place] [facility] [address] [facility] [id number] [place] [address] Sep, [facility] [place] [facility] [address] [facility] [id number] [place] [address] Sep, [facility] [place] [facility] [address] [id number], [place] [address] Sep, [facility] [place] [facility] [address] [id number], [place] [address] Sep, [facility] [place] [facility] [address] [id number], [place] [address] 30 Aug, 2014 [facility] [place] [facility] [address] [id number] [place] [address] Aug, [facility] [place] [facility] [address] [facility] [id number], [place] [address] Aug, [facility] [place] [facility] [address] [id number] [place] [address] Aug, 2013 [facility] [place] [facility] [address] [id number] [place] [address] Aug, 2013 [facility] [place] [facility] [address] [id number] [place] [address] Aug, [facility] [place] [facility] [address] [id number] [place] [address] Aug, [facility] [place] [facility] [address] [id number] [place] [address] Aug, [facility] [place] [facility] [address] [id number] [place] [address] Aug, [facility] [place] [facility] [address] [id number] [place] [address] Aug, [facility] [place] [facility] [address] [id number] [place] [address] Aug, [facility] [place] [facility] [address] [id number] [place] [address] Aug, [facility] [place] [facility] [address] [id number] [place] [address] Aug, [facility] [place] [facility] [address] [id number] [place] [address] Aug, [facility] [place] [facility] [address] [id number] [place] [address] Aug, [facility] [place] [facility] [address] [id number] [place] [address] Aug, [facility] [place] [facility] [address] [id number] [place] [address] Aug, [facility] [place] [facility] [address] [id number] [place] [address] Aug, [facility] [place] [facility] [address] [id number] [place] [address] 30 Jul, 2014 [facility] [address] [facility] [id number], [place] [address] 30 Jul, 2014 [facility] [address] [facility] [id number][place] [address] Jul, [facility] [address] [facility] [id number], [place] [address] Jul, [facility] [address] [facility] [id number], [place] [address] Jul, [facility] [address] [facility] [id number], [place] [address] Jul, [facility] [address] [facility] [id number], [place] [address] Jul, [facility] [id number] [address] Jul, [facility] [id number] [address] Jul, [facility] [address] [facility] [id number], [place] [address] Jul, [facility] [id number], [place] [address] Jul, [facility] [id number], [place] [address] Jul, [facility] [address] [facility] [id number], [place] [address] Jul, [facility] [address] [id number], [place] [address] Jul, IMMUNIZATIONS No Known Immunizations SOCIAL HISTORY Never Assessed REASON FOR VISIT BS f/u attempt PLAN OF CARE VITAL SIGNS MEDICATIONS Unknown [...] r/t DDD Medical History fibromyalgia Medical History [place]-stent to [place] Surgical History cholecystectomy 1983 Surgical [...] Influenza illness, hyperglycemia 2017 Hospitalization History [facility]- High BS (Pt left AMA) 01/05/2018 Hospitalization History [facility]- DKA and UTI. Discharged 01/14/2018 Hospitalization History [facility]- Nausea and Vomiting, cannot urinate 01/18/2018
--- OUTSIDE RECORDS SUMMARY | 2018-06-01 10:06 | XMS REPORT ---
Author Author LINH WILSON [facility] Address [address] [place] [address] Care Team Providers Care Front Desk Officer Name Role Phone LINH WILSON Unavailable PROBLEMS Type Condition ICD9-CM Code GCJ60-MR Code Onset Dates Condition Status SNOMED Code Problem Dental caries K02.9 Active 95613357 Problem Primary insomnia F51.01 Active 4134087 Problem Seasonal allergic rhinitis due to pollen J30.1 Active 19907065 Problem Type 2 diabetes mellitus with hyperglycemia E11.65 Active 579368730801104 Problem Hyperlipidemia E78.5 Active 89514092 Problem Cervicalgia M54.2 Active 87010856 Problem Alterations of sensations R20.9 Active 594973843 Problem Other obesity due to excess calories E66.09 Active 421893032 Problem Arthritis M19.90 Active 0419454 Problem Diabetic mononeuropathy associated with type 2 diabetes mellitus E11.41 Active 104897258 Problem Body mass index (BMI) of 33.0-33.9 in adult Z68.33 Active 643647713 Problem GERD (gastroesophageal reflux disease) K21.9 Active 153125644 Problem care home 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 Active 182573058 Problem Degenerative disc disease, lumbar M51.36 Active 43297388 Problem Fibromyalgia M79.7 Active 72698090 Problem Tobacco abuse Z72.0 Active 95444101 Problem Tobacco abuse counseling Z71.6 Active 794693015 Problem 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 I10 Active 10519204 Problem Chronic pain syndrome G89.4 Active 072027497 Problem CAD (coronary artery disease) I25.10 Active 09944070 Problem DM neuro manif type II E11.49 Active 00290652 ALLERGIES No Information ENCOUNTERS Encounter Location Date Diagnosis [facility] [address] [facility] [id number] [address] Jul, [facility] [id number] [place] [address] 45419- 2651 Apr, Type 2 diabetes mellitus with hyperglycemia E11.65 [place] [id number] [place] [address] 31047- 8496 Apr, Hyperlipidemia E78.5 ; Chronic pain syndrome G89.4 ; Cervicalgia M54.2 ; DM neuro manif type II E11.49 ; 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 ; Nausea alone R11.0 ; 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 I10 ; GERD ( gastroesophageal reflux disease) K21.9 ; CAD (coronary artery disease) I25.10 and Diabetic mononeuropathy associated with type 2 diabetes mellitus E11.41 [place] [address] [address]- 2848 Apr, [place] [address] 25984- 5423 March, 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 I10 ; DM neuro manif type II E11.49 and GERD (gastroesophageal reflux disease) K21.9 [place] [address] 69551- 1338 March, DM neuro manif type II E11.49 and GERD (gastroesophageal reflux disease) K21.9 [place] [address] 13639- 1314 March, [place] [address] 04153- 5311 Feb, Tobacco abuse Z72.0 [place] [address] 01844- 6779 Feb, Tobacco abuse Z72.0 [place] [address] 12288- 4359 Feb, Hypokalemia E87.6 [place] [address] 58334- 9376 Feb, Hyperlipidemia E78.5 ; 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 I10 ; DM neuro manif type II E11.49 ; Fibromyalgia M79.7 ; Acute non-recurrent frontal sinusitis J01.10 ; Other obesity due to excess calories E66.09 and Body mass index (BMI) of 33.0-33.9 in adult Z68.[address] 78870- 6317 05 Jan, 2018 Dysuria R30.0 [place] [address] 80549- 6453 05 Jan, 2018 Dysuria R30.0 [place] [address] 73980- 1956 02 Jan, 2018 Acute cystitis with hematuria N30.01 ; DM neuro manif type II E11.49 ; 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 ; 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 I10 and Hospital discharge follow-up Z09 [address] 66257- 6137 27 Dec, 2017 Chest pain, unspecified type R07.9 ; Dehydration E86.0 and Anuria R34 [address] 35745- 1466 Dec, [address] 23485- 4833 Dec, Hyperglycemia R73.9 ; Dehydration E86.0 and Acute cystitis with hematuria N30.01 [facility] [address] [address] Dec, [facility] [address] [place] [address] 90542 -8225 Dec, [facility] [address] [place] [address] 57998 -2986 Dec, [facility] [address] [place] [address] 97769 -7194 16 Dec, 2017 Dysuria R30.0 ; Acute cystitis with hematuria N30.01 and Weakness R53.[address] 72582- 0315 Dec, [place] [id number] [place] [address] 72219- 5570 Nov, [place] [id number] [place] [address] 71672- 9563 Nov, [place] [id number] [place] [address] 44947- 9312 Nov, 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 I10 ; DM neuro manif type II E11.49 ; 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 ; Tobacco abuse Z72.0 ; Hyperlipidemia E78.5 ; Non-adherence to medical treatment Z91.19 ; GERD (gastroesophageal reflux disease) K21.9 ; Degenerative disc disease, lumbar M51.36 ; Fibromyalgia M79.7 ; Chronic pain syndrome G89.4 ; Dental caries K02.9 and Seasonal allergic rhinitis due to pollen J30.[address] 02595- 2393 Nov, Alterations of sensations R20.9 [place] [address] 93342- 9563 Sep, DM neuro manif type II E11.49 ; Hyperlipidemia E78.5 ; Degenerative disc disease, lumbar M51.36 and Chronic pain syndrome G89.4 [place] [id number] [place] [address] 22430- 2784 Sep, Arthritis M19.90 [place] [id number] [place] [address] 82267- 1327 Sep, Type 2 diabetes mellitus without complication E11.9 ; GERD ( gastroesophageal reflux disease) K21.9 ; Arthritis M19.90 and Chronic pain syndrome G89.4 [place] [id number] [place] [address] 77484- 4034 Sep, [place] [id number] [place] [address] 68101- 9892 Aug, [place] [address] 06748- 5586 18 Aug, 2017 Type 2 diabetes mellitus without complication E11.9 [facility] [address] [place] [address] 85604- 9350 17 Aug, 2017 [facility] [id number] [place] [address] 03815- 6190 16 Aug, 2017 [facility] [id number] [place] [address] 93839- 7565 Aug, [facility] [id number] [place] [address] 22661- 5229 26 Jul, 2017 [facility] [id number] [place] [address] 43985 -4238 22 Jul, 2017 Acute non-recurrent frontal sinusitis J01.10 [place] [id number] [place] [address] 17870- 9410 20 Jul, 2017 CAD (coronary artery disease) I25.10 and GERD ( gastroesophageal reflux disease) K21.9 [place] [id number] [place] [address] 58470- 1270 14 Jul, 2017 Localized swelling, mass and lump, neck R22.1 [place] [address] [id number] [place] [address] 23150- 2307 06 Jul, 2017 [place] [id number] [place] [address] 25073- 1425 15 Jun, 2017 Type 2 diabetes mellitus without complication E11.9 ; Primary insomnia F51.01 ; Alterations of sensations R20.9 ; Hyperlipidemia E78.5 ; GERD (gastroesophageal reflux disease) K21.9 ; 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 I10 ; care home 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 ; Tobacco abuse Z72.0 ; Tobacco abuse counseling Z71.6 and CAD (coronary artery disease) I25.10 [place] [id number] [place] [address] 95225- 3784 May, [place] [id number] [place] [address] 26691- 0961 May, Type 2 diabetes mellitus without complication E11.9 [facility] [address] [address] 7036 May, [facility] [id number] [place] [address] 75040- 8468 March, [facility] [id number] [place] [address] 72225- 4770 Feb, [facility] [id number] [place] [address] 11039 -4068 Jan, Acute suppurative otitis media of left ear with spontaneous rupture of tympanic membrane, recurrence not specified H66.012 [place] [id number] [place] [address] 79985- 1574 Dec, Type 2 diabetes mellitus without complication E11.9 ; Lumbago M54.5 ; Cervicalgia M54.2 ; Hyperlipidemia E78.5 ; GERD ( gastroesophageal reflux disease) K21.9 ; Chronic pain syndrome G89.4 ; Dysuria R30.0 and 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 I10 [place] [id number] [place] [address] 17935- 9192 Oct, [place] [id number] [place] [address] 79711- 6036 30 Sep, 2016 Diabetic mononeuropathy associated with type 2 diabetes mellitus E11.41 and Coughing R05 [place] [id number] [place] [address] 88253- 6044 28 Sep, 2016 Diabetic mononeuropathy associated with type 2 diabetes mellitus E11.41 and Coughing R05 [place] [address] [place] [address] 03905- 4852 Sep, Onychomycosis B35.1 ; Neuritis M79.2 and Type 2 diabetes mellitus without complication E11.9 [facility] [address] [place] [address] 30737- 3011 14 Sep, 2016 [place] [id number] [place] [address] 98181- 7958 Sep, Cough R05 ; Seasonal allergic rhinitis due to pollen J30.1 and Acute upper respiratory infection, unspecified J06.9 [place] [id number] [place] [address] 47645- 7884 Sep, [place] [address] 93617- 2743 Aug, [place] [address] 29967- 7692 Jul, Type 2 diabetes mellitus without complication E11.9 ; Chronic pain G89.29 ; 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 I10 and Acute non-recurrent maxillary sinusitis J01.00 [place] [address] 67355- 2845 Jul, Chronic pain syndrome G89.4 ; Lumbago M54.5 and Cervicalgia M54.[address] 38891- 5885 Jul, [place] [address] 02469- 7379 Jul, [place] [address] 18390- 5235 Jun, Onychomycosis B35.1 ; Onychocryptosis L60.0 and DM neuro manif type II E11.49 [place] [id number] [place] [address] 31748- 1800 Jun, Type 2 diabetes mellitus without complication E11.9 ; Pain in unspecified hip M25.559 ; Other chronic pain G89.29 ; Lumbago M54.5 ; Chronic pain G89.29 ; Insomnia, unspecified G47.00 ; GERD (gastroesophageal reflux disease) K21.9 and Dental caries K02.9 [place] [id number] [place] [address] 89840- 7782 Jun, Type 2 diabetes mellitus without complication E11.9 ; Lumbago M54.5 ; Chronic pain G89.29 ; Insomnia, unspecified G47.00 ; GERD ( gastroesophageal reflux disease) K21.9 ; Dental caries K02.9 ; Pain in unspecified hip M25.559 and Other chronic pain G89.29 [place] [id number] [place] [address] 64680- 1770 May, [place] [address] 80479- 6247 May, Type 2 diabetes mellitus without complication E11.9 ; 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 I10 ; Chronic pain syndrome G89.4 ; Other seasonal allergic rhinitis J30.2 and Insomnia, unspecified G47.00 [place] [address] 31317- 3162 Apr, [place] [address] 83747- 0285 Apr, Hypertension I10 and Chronic pain G89.29 [place] [address] 94445- 1218 March, Onychomycosis B35.1 ; Onychocryptosis L60.0 and Type 2 diabetes mellitus without complication E11.9 [place] [id number] [place] [address] 31894- 2738 March, Type 2 diabetes mellitus without complication E11.9 ; 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 I10 ; Alterations of sensations R20.9 ; Chronic pain syndrome G89.4 ; Tobacco abuse Z72.0 and Tobacco abuse counseling Z71.6 [place] [address] [address] [id number] [place] [address] 49125- 1999 Feb, Cough R05 ; Type 2 diabetes mellitus without complication E11.9 ; Tobacco abuse counseling Z71.6 and Chronic pain G89.29 [place] [address] [address] [id number] [place] [address] 27318- 0512 Feb, [place] [address] [address] [id number] [place] [address] 20250- 3234 Feb, Type 2 diabetes mellitus without complication E11.9 ; Lumbago M54.5 ; Cervicalgia M54.2 ; Degenerative disc disease, lumbar M51.36 and Numbness and tingling of both legs 782.0 [facility] [id number] [place] [address] [id number] Jan, Dental caries K02.9 and Encounter for dental examination Z01.20 [place] [id number] [place] [address] 46588- 1522 Jan, Type 2 diabetes mellitus without complication E11.9 [place] [address] 17375- 0706 Jan, Type 2 diabetes mellitus without complication E11.9 ; Numbness and tingling of both legs 782.0 ; Fibromyalgia M79.7 ; Hyperlipidemia E78.5 ; Lumbago M54.5 ; Cervicalgia M54.2 ; Hypertension I10 ; CAD (coronary artery disease) I25.10 ; Tobacco abuse Z72.0 ; Tobacco abuse counseling Z71.6 and GERD (gastroesophageal reflux disease) K21.9 [place] [address] [address] [id number] [place] [address] 48763- 8583 Jan, [place] [address] 94478- 6490 Dec, [facility] [id number] [place] [address] [id number] Dec, Dental examination Z01.20 and Dental caries K02.9 [place] [id number] [place] [address] 94217- 7303 Dec, Edema R60.9 ; Type 2 diabetes mellitus without complication E11.9 ; Hypertension I10 and Mouth pain K13.[address] 22804- 6748 Dec, Degenerative disc disease, lumbar M51.36 [place] [id number] [place] [address] 14476- 1543 Dec, [place] [id number] [address]- 1240 Nov, Insomnia, unspecified G47.00 [place] [address] 48816- 2435 Nov, Type 2 diabetes mellitus without complication E11.9 ; Lumbago M54.5 ; Degenerative disc disease, lumbar M51.36 ; Fibromyalgia M79.7 ; Coronary artery disease I25.10 ; Hyperlipidemia E78.5 ; Controlled substance agreement signed Z79.899 ; Dysuria R30.0 ; Insomnia, unspecified G47.00 ; GERD ( gastroesophageal reflux disease) K21.9 ; Hypertension 401.9 and 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 [place] [address] 90390- 0704 Nov, [place] [address] 77548- 1620 Oct, Degenerative disc disease, lumbar M51.36 ; Cervicalgia M54.2 ; Insomnia, unspecified G47.00 ; Decreased GFR R94.4 and GERD ( gastroesophageal reflux disease) K21.9 [place] [address] 59652- 1390 Oct, Lumbago M54.5 [place] [address] 38290- 9830 Oct, Low back pain M54.5 [place] [address] 04463- 0721 Oct, [place] [address] 27316- 8202 Oct, Disorientation R41.0 [place] [address] 31604- 1340 Oct, Type 2 diabetes mellitus without complication E11.9 ; Disorientation R41.0 and Chest pain R07.9 [place] [address] 56347- 2050 Oct, [facility] [id number] [place] [address] 08793- 8112 Sep, Low back pain M54.5 [facility] [id number] [place] [address] 42446- 1121 Sep, Insomnia, unspecified G47.00 [facility] [id number] [place] [address] 02691- 8594 Aug, Degenerative disc disease, lumbar M51.36 ; Type 2 diabetes mellitus without complication E11.9 and Encounter for immunization Z23 [facility] [id number] [place] [address] 17286- 5511 Aug, [facility] [id number] [place] [address] 00163- 7802 Aug, [facility] [id number] [place] [address] 63007- 9171 Aug, [facility] [id number] [place] [address] 81968- 7571 Jul, [facility] [id number] [place] [address] 87456- 9599 Jun, [facility] [id number] [place] [address] 22648- 6698 Jun, Chest pain 786.50 and Lumbago 724.2 [facility] [id number] [place] [address] 64585- 8032 Jun, [facility] [id number] [place] [address] 73534- 7806 Jun, [facility] [id number] [place] [address] [id number] Jun, Dental examination V72.2 [facility] [id number] [place] [address] 47690- 1127 Jun, [facility] [id number] [place] [address] 30027- 8887 May, Left shoulder pain 719.41 and Numbness and tingling of both legs 782.0 [facility] [id number] [place] [address] 39707- 0677 May, Cough 786.2 ; Numbness and tingling of both legs 782.0 and Acute rhinitis 460 [facility] [id number] [place] [address] 35356- 0850 May, [facility] [id number] [place] [address] 04286- 7775 Apr, [facility] [id number] [place] [address] 50131- 6838 Apr, Bilateral lower extremity edema 782.3 ; Lumbago 724.2 and Insomnia 780.52 [facility] [id number] [place] [address] 05148- 5049 Apr, [facility] [id number] [place] [address] 25044- 1478 Apr, [facility] [id number] [place] [address] 04815- 6710 March, Seborrheic keratosis 702.19 and Skin lesion of face 709.9 [facility] [id number] [place] [address] 06043- 1738 March, [facility] [id number] [place] [address] 64286- 0612 March, [facility] [id number] [place] [address] 06118- 7070 March, [facility] [id number] [place] [address] [id number]- 3515 March, [facility] [id number] [place] [address] 45266- 7482 14 Feb, 2015 [facility] [id number] [place] [address] 28195- 9272 13 Feb, 2015 [facility] [place] [facility] [address] [id number] [place] [address]- 6498 25 Jan, 2015 [facility] [place] [facility] [address] [id number] [place] [address]- 7654 25 Jan, 2015 [facility] [place] [facility] [address] [id number] [place] [address]- 6071 16 Jan, 2015 [facility] [place] [facility] [address] [id number] [place] [address]- 9823 16 Jan, 2015 [facility] [place] [facility] [address] [id number] [place] [address]- 0481 16 Jan, 2015 [facility] [place] [facility] [address] [id number] [place] [address]- 6327 16 Jan, 2015 [facility] [place] [facility] [address] [id number] [place] [address]- 7156 Jan, [facility] [place] [facility] [address] [id number] [place] [address]- 1417 13 Jan, 2015 [facility] [place] [facility] [address] [id number] [place] [address]- 4617 Jan, [facility] [place] [facility] [address] [id number] [place] [address]- 3620 Jan, [facility] [place] [facility] [address] [id number] [place] [address]- 0907 Jan, [facility] [place] [facility] [address] [id number] [address]- 9430 Dec, [facility] [place] [facility] [address] [id number] [place] [address]- 4056 Dec, [facility] [place] [facility] [address] [id number] [place] [address]- 7758 Dec, [facility] [place] [facility] [address] [id number] [place] [address]- 4311 Dec, [facility] [place] [facility] [address] [id number] [place] [address]- 6796 12 Dec, 2014 [facility] [address] [id number] [place] [address]- 4316 Dec, [facility] [address] [id number] [place] [address]- 9596 Nov, [facility] [address] [id number] [place] [address]- 8028 Nov, [facility] [place] [facility] [address] [id number] [place] [address]- 6844 Nov, [facility] [address] [id number] [place] [address]- 5269 Nov, [facility] [address] [id number] [place] [address]- 1775 Nov, [facility] [address] [id number] [place] [address]- 0318 Nov, [facility] [address] [id number] [place] [address]- 2229 Nov, [facility] [address] [id number] [place] [address]- 5803 Nov, [facility] [address] [id number] [place] [address]- 3130 Nov, [facility] [place] [facility] [address] [id number] [place] [address]- 3133 Nov, [facility] [place] [facility] [address] [id number] [place] [address]- 6731 Nov, [facility] [place] [facility] [address] [id number] [place] [address]- 3846 Oct, [facility] [place] [facility] [address] [id number] [place] [address]- 0476 Oct, [facility] [place] [facility] [address] [id number] [place] [address]- 4317 Oct, [facility] [place] [facility] [address] [id number] [place] [address]- 8098 Oct, [facility] [place] [facility] [address] [id number] [place] [address]- 1609 Oct, [facility] [place] [facility] [address] [id number] [place] [address]- 4868 Oct, [facility] [place] [facility] [address] [id number] [place] [address]- 8881 Oct, [facility] [place] [facility] [address] [id number] [place] [address]- [address] Oct, [facility] [place] [facility] [address] [id number] [place] [address] Oct, [facility] [place] [facility] [address] [id number] [place] [address] Oct, [facility] [place] [facility] [address] [id number] [place] [address] Sep, [facility] [place] [facility] [address] [id number] [place] [address] Sep, [facility] [place] [facility] [address] [id number] [place] [address] Sep, [facility] [place] [facility] [address] [id number] [place] [address] Sep, [facility] [place] [facility] [address] [id number] [address] Sep, [facility] [place] [facility] [address] [id number] [place] [address] Sep, [facility] [place] [facility] [address] [id number] [place] [address] Sep, [facility] [place] [facility] [address] [id number] [place] [address] Sep, [facility] [place] [facility] [address] [id number] [place] [address] 17 Sep, 2014 [facility] [place] [facility] [address] [id number] [place] [address] 17 Sep, 2014 [facility] [place] [facility] [address] [id number] [place] [address] Sep, [facility] [place] [facility] [address] [id number] [place] [address] Sep, [facility] [place] [facility] [address] [id number] [place] [address] Sep, [facility] [place] [facility] [address] [id number] [place] [address] 30 Aug, 2014 [facility] [place] [facility] [address] [id number] [place] [address] 30 Aug, 2014 [facility] [place] [facility] [address] [id number] [place] [address] 30 Aug, 2014 [facility] [place] [facility] [address] [id number] [place] [address] 30 Aug, 2014 [facility] [place] [facility] [address] [id number] [place] [address] 30 Aug, 2014 [facility] [place] [facility] [address] [facility] [id number] [place] [address] 30 Aug, 2014 [facility] [place] [facility] [address] [id number] [place] [address] Aug, [facility] [place] [facility] [address] [address] [id number] [place] [address] 24 Aug, 2014 [facility] [place] [facility] [address] [id number] [place] [address] Aug, [facility] [place] [facility] [address] [id number] [place] [address] Aug, [facility] [place] [facility] [address] [id number] [place] [address] Aug, [facility] [place] [facility] [address] [id number] [place] [address] Aug, 2013 [facility] [place] [facility] [address] [id number] [place] [address] Aug, 2013 [facility] [place] [facility] [address] [id number] [place] [address] Aug, 2013 [facility] [place] [facility] [address] [id number] [place] [address] Aug, 2013 [facility] [place] [facility] [address] [id number] [place] [address] Aug, 2013 [facility] [place] [facility] [address] [id number] [place] [address] Aug, [facility] [place] [facility] [address] [id number] [place] [address] Aug, [facility] [place] [facility] [address] [id number] [place] [address] 30 Jul, 2013 [facility] [place] [facility] [address] [id number] [place] [address] 30 Jul, 2013 [facility] [place] [facility] [address] [id number] [place] [address] 24 Jul, 2013 [facility] [place] [facility] [address] [id number] [place] [address] 24 Sep, 2013 [facility] [place] [facility] [address] [id number] [place] [address] 23 Sep, 2013 [facility] [place] [facility] [address] [id number] [place] [address] 23 Sep, 2013 [facility] [place] [facility] [address] [id number] [place] [address] 15 Sep, 2013 [facility] [place] [facility] [address] [id number] [place] [address] 15 Sep, 2013 [facility] [place] [facility] [address] [id number] [place] [address] 15 Jul, 2014 [facility] [address] [facility] [id number] [place] [address] 15 Jul, 2014 [facility] [address] [facility] [id number], [place] [address] Jul, [facility] [address] [facility] [id number], [place] [address] Jul, [facility] [address] [facility] [id number], [place] [address] Jul, [facility] [address] [facility] [id number], [place] [address] Jul, IMMUNIZATIONS No Known Immunizations SOCIAL HISTORY Never Assessed REASON FOR VISIT PLAN OF CARE VITAL SIGNS MEDICATIONS Medication Instructions Dosage Frequency Start Date End Date Duration Status Phenergan 12.5 MG Rectal every 6 hrs 1 suppository as needed 6h Dec, Dec, 5 days Active RESULTS No Results PROCEDURES No Known procedures INSTRUCTIONS MEDICATIONS ADMINISTERED No Known Medications MEDICAL (GENERAL) HISTORY Type Description Date Medical History hearing loss Medical History 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 Medical History acute renal failure Medical History hyperlipidemia Medical History type II diabetes Medical History Arthritis Medical History degenerative disease lumbosacral spine Medical History chronic pain r/t DDD Medical History fibromyalgia Medical History [place]-stent to LAD Surgical History cholecystectomy 1983 Surgical [...] Influenza illness, hyperglycemia 2017 Hospitalization History [facility]- High BS (Pt left AMA) 01/05/2018 Hospitalization History [facility]- DKA and UTI. Discharged 01/14/2018 Hospitalization History [facility]- Nausea and Vomiting, cannot urinate 01/18/2018
--- OUTSIDE RECORDS SUMMARY | 2018-06-01 10:07 | XMS REPORT ---
Author Author LINH WILSON [facility] Address [address] [place] [address] Care Team Providers Care Cork Grinder Name Role Phone LINH WILSON Unavailable PROBLEMS Type Condition ICD9-CM Code JPN21-IF Code Onset Dates Condition Status SNOMED Code Problem Dental caries K02.9 Active 87496835 Problem Primary insomnia F51.01 Active 6373484 Problem Seasonal allergic rhinitis due to pollen J30.1 Active 42227481 Problem Type 2 diabetes mellitus with hyperglycemia E11.65 Active [id number] Problem Hyperlipidemia E78.5 Active 87811654 Problem Cervicalgia M54.2 Active 03757896 Problem Alterations of sensations R20.9 Active 531885874 Problem Other obesity due to excess calories E66.09 Active 315943754 Problem Arthritis M19.90 Active 2891162 Problem Diabetic mononeuropathy associated with type 2 diabetes mellitus E11.41 Active 277390573 Problem Body mass index (BMI) of 33.0-33.9 in adult Z68.33 Active 432675298 Problem GERD (gastroesophageal reflux disease) K21.9 Active 787906496 Problem skilled nursing 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 Active 073674629 Problem Degenerative disc disease, lumbar M51.36 Active 08289300 Problem Fibromyalgia M79.7 Active 18074880 Problem Tobacco abuse Z72.0 Active 21314806 Problem Tobacco abuse counseling Z71.6 Active 037737724 Problem 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 I10 Active 69410199 Problem Chronic pain syndrome G89.4 Active 396983145 Problem CAD (coronary artery disease) I25.10 Active 46835152 Problem DM neuro manif type II E11.49 Active 24441700 ALLERGIES No Information ENCOUNTERS Encounter Location Date Diagnosis [facility] [address] [facility] [id number] [address] Jul, [facility] [address] [place] [address] 44077- 6232 Apr, Type 2 diabetes mellitus with hyperglycemia E11.65 [place] [id number] [place] [address] 44718- 7841 Apr, Hyperlipidemia E78.5 ; Chronic pain syndrome G89.4 ; Cervicalgia M54.2 ; DM neuro manif type II E11.49 ; 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 ; Nausea alone R11.0 ; 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 I10 ; GERD ( gastroesophageal reflux disease) K21.9 ; CAD (coronary artery disease) I25.10 and Diabetic mononeuropathy associated with type 2 diabetes mellitus E11.41 [place] [address] [address] 4788 Apr, [place] [address] 28529- 3578 March, 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 I10 ; DM neuro manif type II E11.49 and GERD (gastroesophageal reflux disease) K21.9 [place] [address] [address]- 4831 March, DM neuro manif type II E11.49 and GERD (gastroesophageal reflux disease) K21.9 [place] [address] 78792- 4967 March, [place] [address] 6[address]- 2259 Feb, Tobacco abuse Z72.0 [place] [address] 85071- 8154 Feb, Tobacco abuse Z72.0 [place] [address] 29464- 9182 Feb, Hypokalemia E87.6 [place] [address] 91179- 4205 Feb, Hyperlipidemia E78.5 ; 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 I10 ; DM neuro manif type II E11.49 ; Fibromyalgia M79.7 ; Acute non-recurrent frontal sinusitis J01.10 ; Other obesity due to excess calories E66.09 and Body mass index (BMI) of 33.0-33.9 in adult Z68.[address] 74849- 5918 05 Jan, 2018 Dysuria R30.0 [place] [address] 84363- 8428 05 Jan, 2018 Dysuria R30.0 [place] [address] 99045- 3518 02 Jan, 2018 Acute cystitis with hematuria N30.01 ; DM neuro manif type II E11.49 ; 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 ; 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 I10 and Hospital discharge follow-up Z09 [address] 9[address]61- 5521 27 Dec, 2017 Chest pain, unspecified type R07.9 ; Dehydration E86.0 and Anuria R34 [address] 72039- 5190 Dec, [address] 77878- 3533 Dec, Hyperglycemia R73.9 ; Dehydration E86.0 and Acute cystitis with hematuria N30.01 [facility] [address] [address] Dec, [facility] [address] [place] [address] 16098 -8084 Dec, [facility] [address] [place] [address] 41337 -8297 Dec, [facility] [address] [place] [address] 36844 -3578 16 Dec, 2017 Dysuria R30.0 ; Acute cystitis with hematuria N30.01 and Weakness R53.[address] 92807- 0785 Dec, [place] [id number] [place] [address] 76389- 2834 Nov, [place] [address] [id number] [place] [address] 07016- 9433 Nov, [place] [id number] [place] [address] 03262- 4512 Nov, 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 I10 ; DM neuro manif type II E11.49 ; 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 ; Tobacco abuse Z72.0 ; Hyperlipidemia E78.5 ; Non-adherence to medical treatment Z91.19 ; GERD (gastroesophageal reflux disease) K21.9 ; Degenerative disc disease, lumbar M51.36 ; Fibromyalgia M79.7 ; Chronic pain syndrome G89.4 ; Dental caries K02.9 and Seasonal allergic rhinitis due to pollen J30.[address] 80013- 9362 Nov, Alterations of sensations R20.9 [place] [address] 99590- 4921 Sep, DM neuro manif type II E11.49 ; Hyperlipidemia E78.5 ; Degenerative disc disease, lumbar M51.36 and Chronic pain syndrome G89.4 [place] [address] [id number] [place] [address] 46047- 8045 Sep, Arthritis M19.90 [place] [id number] [place] [address] 02058- 7102 Sep, Type 2 diabetes mellitus without complication E11.9 ; GERD ( gastroesophageal reflux disease) K21.9 ; Arthritis M19.90 and Chronic pain syndrome G89.4 [place] [id number] [place] [address] 07202- 8800 Sep, [place] [id number] [place] [address] 59830- 4321 Aug, [place] [address] 05512- 8166 18 Aug, 2017 Type 2 diabetes mellitus without complication E11.9 [facility] [address] [place] [address] 13566- 5274 17 Aug, 2017 [facility] [id number] [place] [address] 63746- 6035 16 Aug, 2017 [facility] [address] [id number] [place] [address] 49481- 0819 Aug, [facility] [address] [place] [id number] [place] [address] 80238- 5853 26 Jul, 2017 [facility] [id number] [place] [address] 50427 -5714 22 Jul, 2017 Acute non-recurrent frontal sinusitis J01.10 [place] [address] [id number] [place] [address] 10465- 5483 20 Jul, 2017 CAD (coronary artery disease) I25.10 and GERD ( gastroesophageal reflux disease) K21.9 [place] [address] [id number] [place] [address] 25059- 8266 14 Jul, 2017 Localized swelling, mass and lump, neck R22.1 [place] [address] [id number] [place] [address] 50749- 3746 06 Jul, 2017 [place] [id number] [place] [address] 03071- 3414 15 Jun, 2017 Type 2 diabetes mellitus without complication E11.9 ; Primary insomnia F51.01 ; Alterations of sensations R20.9 ; Hyperlipidemia E78.5 ; GERD (gastroesophageal reflux disease) K21.9 ; 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 I10 ; skilled nursing 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 ; Tobacco abuse Z72.0 ; Tobacco abuse counseling Z71.6 and CAD (coronary artery disease) I25.10 [place] [address] [id number] [place] [address] 83352- 1355 May, [place] [address] [id number] [place] [address] 45025- 0594 May, Type 2 diabetes mellitus without complication E11.9 [facility] [address] [address] 244[address] May, [facility] [id number] [place] [address] 35893- 3860 March, [facility] [id number] [place] [address] 37135- 4624 Feb, [facility] [id number] [place] [address] 77294 -0274 Jan, Acute suppurative otitis media of left ear with spontaneous rupture of tympanic membrane, recurrence not specified H66.012 [place] [address] [id number] [place] [address] 60150- 1010 Dec, Type 2 diabetes mellitus without complication E11.9 ; Lumbago M54.5 ; Cervicalgia M54.2 ; Hyperlipidemia E78.5 ; GERD ( gastroesophageal reflux disease) K21.9 ; Chronic pain syndrome G89.4 ; Dysuria R30.0 and 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 I10 [place] [id number] [place] [address] 34266- 4224 Oct, [place] [id number] [place] [address] 87928- 7037 30 Sep, 2016 Diabetic mononeuropathy associated with type 2 diabetes mellitus E11.41 and Coughing R05 [place] [address] [id number] [place] [address] 74316- 0875 28 Sep, 2016 Diabetic mononeuropathy associated with type 2 diabetes mellitus E11.41 and Coughing R05 [place] [address] [place] [address] 87783- 1127 Sep, Onychomycosis B35.1 ; Neuritis M79.2 and Type 2 diabetes mellitus without complication E11.9 [facility] [address] [place] [address] 25953- 8713 14 Sep, 2016 [place] [address] [id number] [place] [address] 03543- 3728 Sep, Cough R05 ; Seasonal allergic rhinitis due to pollen J30.1 and Acute upper respiratory infection, unspecified J06.9 [place] [address] [place] [id number] [place] [address] 58355- 2546 Sep, [place] [address] 08678- 7372 Aug, [place] [address] 37516- 5610 Jul, Type 2 diabetes mellitus without complication E11.9 ; Chronic pain G89.29 ; 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 I10 and Acute non-recurrent maxillary sinusitis J01.00 [place] [address] 85043- 0803 Jul, Chronic pain syndrome G89.4 ; Lumbago M54.5 and Cervicalgia M54.[address] 23240- 9196 Jul, [place] [address] 88539- 1368 Jul, [place] [address] 61278- 8707 Jun, Onychomycosis B35.1 ; Onychocryptosis L60.0 and DM neuro manif type II E11.49 [place] [id number] [place] [address] 82806- 4892 Jun, Type 2 diabetes mellitus without complication E11.9 ; Pain in unspecified hip M25.559 ; Other chronic pain G89.29 ; Lumbago M54.5 ; Chronic pain G89.29 ; Insomnia, unspecified G47.00 ; GERD (gastroesophageal reflux disease) K21.9 and Dental caries K02.9 [place] [id number] [place] [address] 47158- 3027 Jun, Type 2 diabetes mellitus without complication E11.9 ; Lumbago M54.5 ; Chronic pain G89.29 ; Insomnia, unspecified G47.00 ; GERD ( gastroesophageal reflux disease) K21.9 ; Dental caries K02.9 ; Pain in unspecified hip M25.559 and Other chronic pain G89.29 [place] [address] [id number] [place] [address] 01874- 4559 May, [place] [address] 15641- 3080 May, Type 2 diabetes mellitus without complication E11.9 ; 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 I10 ; Chronic pain syndrome G89.4 ; Other seasonal allergic rhinitis J30.2 and Insomnia, unspecified G47.00 [place] [address] 77192- 2467 Apr, [place] [address] 71992- 6331 Apr, Hypertension I10 and Chronic pain G89.29 [place] [address] 01472- 1968 March, Onychomycosis B35.1 ; Onychocryptosis L60.0 and Type 2 diabetes mellitus without complication E11.9 [place] [address] [id number] [place] [address] 22520- 7384 March, Type 2 diabetes mellitus without complication E11.9 ; 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 I10 ; Alterations of sensations R20.9 ; Chronic pain syndrome G89.4 ; Tobacco abuse Z72.0 and Tobacco abuse counseling Z71.6 [place] [address] [place] [id number] [place] [address] 68903- 0313 Feb, Cough R05 ; Type 2 diabetes mellitus without complication E11.9 ; Tobacco abuse counseling Z71.6 and Chronic pain G89.29 [place] [address] [place] [id number] [place] [address] 45467- 6607 Feb, [place] [address] [place] [id number] [place] [address] 18175- 6517 Feb, Type 2 diabetes mellitus without complication E11.9 ; Lumbago M54.5 ; Cervicalgia M54.2 ; Degenerative disc disease, lumbar M51.36 and Numbness and tingling of both legs 782.0 [facility] [id number] [place] [address] [id number] Jan, Dental caries K02.9 and Encounter for dental examination Z01.20 [place] [address] [place] [id number] [place] [address] 23705- 3897 Jan, Type 2 diabetes mellitus without complication E11.9 [place] [address] 30816- 5273 Jan, Type 2 diabetes mellitus without complication E11.9 ; Numbness and tingling of both legs 782.0 ; Fibromyalgia M79.7 ; Hyperlipidemia E78.5 ; Lumbago M54.5 ; Cervicalgia M54.2 ; Hypertension I10 ; CAD (coronary artery disease) I25.10 ; Tobacco abuse Z72.0 ; Tobacco abuse counseling Z71.6 and GERD (gastroesophageal reflux disease) K21.9 [place] [address] [place] [id number] [place] [address] 56934- 0261 Jan, [place] [address] 13393- 7751 Dec, [facility] [id number] [place] [address] [id number] Dec, Dental examination Z01.20 and Dental caries K02.9 [place] [id number] [place] [address] 35265- 3955 Dec, Edema R60.9 ; Type 2 diabetes mellitus without complication E11.9 ; Hypertension I10 and Mouth pain K13.[address] 35491- 9296 Dec, Degenerative disc disease, lumbar M51.36 [place] [id number] [place] [address] 15599- 3694 Dec, [place] [id number] [place] [address]- 9497 Nov, Insomnia, unspecified G47.00 [place] [address] 80848- 8181 Nov, Type 2 diabetes mellitus without complication E11.9 ; Lumbago M54.5 ; Degenerative disc disease, lumbar M51.36 ; Fibromyalgia M79.7 ; Coronary artery disease I25.10 ; Hyperlipidemia E78.5 ; Controlled substance agreement signed Z79.899 ; Dysuria R30.0 ; Insomnia, unspecified G47.00 ; GERD ( gastroesophageal reflux disease) K21.9 ; Hypertension 401.9 and 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 [place] [address] 00073- 4226 Nov, [place] [address] 71362- 2153 Oct, Degenerative disc disease, lumbar M51.36 ; Cervicalgia M54.2 ; Insomnia, unspecified G47.00 ; Decreased GFR R94.4 and GERD ( gastroesophageal reflux disease) K21.9 [place] [address] 87103- 6911 Oct, Lumbago M54.5 [place] [address] 75961- 1604 Oct, Low back pain M54.5 [place] [address] 44495- 2061 Oct, [place] [address] 45725- 8851 Oct, Disorientation R41.0 [place] [address] 10989- 3416 Oct, Type 2 diabetes mellitus without complication E11.9 ; Disorientation R41.0 and Chest pain R07.9 [place] [address] 49276- 5938 Oct, [facility] [id number] [place] [address] 09629- 5467 Sep, Low back pain M54.5 [facility] [id number] [place] [address] 82287- 6439 Sep, Insomnia, unspecified G47.00 [facility] [id number] [place] [address] 90809- 6738 Aug, Degenerative disc disease, lumbar M51.36 ; Type 2 diabetes mellitus without complication E11.9 and Encounter for immunization Z23 [facility] [id number] [place] [address] 70848- 1453 Aug, [facility] [id number] [place] [address] 45140- 4421 Aug, [facility] [id number] [place] [address] 34307- 4946 Aug, [facility] [id number] [place] [address] 17958- 8987 Jul, [facility] [id number] [place] [address] 86071- 9596 Jun, [facility] [id number] [place] [address] 69034- 0065 Jun, Chest pain 786.50 and Lumbago 724.2 [facility] [id number] [place] [address] 06876- 1164 Jun, [facility] [id number] [place] [address] 29366- 2754 Jun, [facility] [id number] [place] [address] [id number] Jun, Dental examination V72.2 [facility] [id number] [place] [address] 76523- 7648 Jun, [facility] [id number] [place] [address] 01373- 3579 May, Left shoulder pain 719.41 and Numbness and tingling of both legs 782.0 [facility] [id number] [place] [address] 50058- 2172 May, Cough 786.2 ; Numbness and tingling of both legs 782.0 and Acute rhinitis 460 [facility] [id number] [place] [address] 47138- 9511 May, [facility] [id number] [place] [address] 33599- 7008 Apr, [facility] [id number] [place] [address] 14265- 5673 Apr, Bilateral lower extremity edema 782.3 ; Lumbago 724.2 and Insomnia 780.52 [facility] [id number] [place] [address] 55217- 1302 Apr, [facility] [id number] [place] [address] 59978- 9351 Apr, [facility] [id number] [place] [address] 73653- 9041 March, Seborrheic keratosis 702.19 and Skin lesion of face 709.9 [facility] [id number] [place] [address] 13614- 7030 March, [facility] [id number] [place] [address] 37283- 6322 March, [facility] [id number] [place] [address] 17493- 5014 March, [facility] [id number] [place] [address] [id number]- 5915 March, [facility] [id number] [place] [address] 53015- 1996 14 Feb, 2015 [facility] [id number] [place] [address] 91007- 1322 13 Feb, 2015 [facility] [place] [facility] [address] [id number] [place] [address]- 7856 25 Jan, 2015 [facility] [place] [facility] [address] [id number] [place] [address]- 6726 25 Jan, 2015 [facility] [place] [facility] [address] [id number] [place] [address]- 5578 16 Jan, 2015 [facility] [place] [facility] [address] [id number] [place] [address]- 7673 16 Jan, 2015 [facility] [place] [facility] [address] [id number] [place] [address]- 7019 16 Jan, 2015 [facility] [place] [facility] [address] [id number] [place] [address]- 9956 16 Jan, 2015 [facility] [place] [facility] [address] [id number] [place] [address]- 3963 Jan, [facility] [place] [facility] [address] [id number] [place] [address]- 0579 13 Jan, 2015 [facility] [place] [facility] [address] [id number] [place] [address]- 5960 Jan, [facility] [place] [facility] [address] [id number] [place] [address]- 7780 Jan, [facility] [place] [facility] [address] [id number] [place] [address]- 6467 Jan, [facility] [place] [facility] [address] [id number] [address]- 8651 Dec, [facility] [place] [facility] [address] [id number] [place] [address]- 7904 Dec, [facility] [place] [facility] [address] [id number] [place] [address]- 0942 Dec, [facility] [place] [facility] [address] [id number] [place] [address]- 6330 Dec, [facility] [place] [facility] [address] [id number] [place] [address]- 5217 12 Dec, 2014 [facility] [address] [id number] [place] [address]- 5791 Dec, [facility] [address] [id number] [place] [address]- 8256 Nov, [facility] [address] [id number] [place] [address]- 7979 Nov, [facility] [place] [facility] [address] [id number] [place] [address]- 1220 Nov, [facility] [address] [id number] [place] [address]- 5592 Nov, [facility] [address] [id number] [place] [address]- 8375 Nov, [facility] [address] [id number] [place] [address]- 4300 Nov, [facility] [address] [id number] [place] [address]- 8797 Nov, [facility] [address] [id number] [place] [address]- 0471 Nov, [facility] [address] [id number] [place] [address]- 7921 Nov, [facility] [place] [facility] [address] [id number] [place] [address]- 5952 Nov, [facility] [place] [facility] [address] [id number] [place] [address]- 4735 Nov, [facility] [place] [facility] [address] [id number] [place] [address]- 0046 Oct, [facility] [place] [facility] [address] [id number] [place] [address]- 2916 Oct, [facility] [place] [facility] [address] [id number] [place] [address]- 4880 Oct, [facility] [place] [facility] [address] [id number] [place] [address]- 7333 Oct, [facility] [place] [facility] [address] [id number] [place] [address]- 5275 Oct, [facility] [place] [facility] [address] [id number] [place] [address]- 0390 Oct, [facility] [place] [facility] [address] [id number] [place] [address] Oct, [facility] [place] [facility] [address] [id number] [place] [address] Oct, [facility] [place] [facility] [address] [id number] [place] [address] Oct, [facility] [place] [facility] [address] [id number] [place] [address] Oct, [facility] [place] [facility] [address] [id number] [place] [address] Sep, [facility] [place] [facility] [address] [id number] [place] [address] Sep, [facility] [place] [facility] [address] [id number] [place] [address] Sep, [facility] [place] [facility] [address] [id number] [place] [address] Sep, [facility] [place] [facility] [address] [id number], [place] [address] Sep, [facility] [place] [facility] [address] [id number] [place] [address] Sep, [facility] [place] [facility] [address] [id number] [place] [address] Sep, [facility] [place] [facility] [address] [id number] [place] [address] Sep, [facility] [place] [facility] [address] [id number] [place] [address] 17 Sep, 2014 [facility] [place] [facility] [address] [id number] [place] [address] 17 Sep, 2014 [facility] [place] [facility] [address] [id number] [place] [address] Sep, [facility] [place] [facility] [address] [id number] [place] [address] Sep, [facility] [place] [facility] [address] [id number] [place] [address] Sep, [facility] [place] [facility] [address] [id number] [place] [address] 30 Aug, 2014 [facility] [place] [facility] [address] [id number] [place] [address] 30 Aug, 2014 [facility] [place] [facility] [address] [id number] [place] [address] 30 Aug, 2014 [facility] [place] [facility] [address] [id number] [place] [address] 30 Aug, 2014 [facility] [facility] [address] [id number] [place] [address] 30 Aug, 2014 [facility] [place] [facility] [address] [facility] [id number] [place] [address] 30 Aug, 2014 [facility] [place] [facility] [address] [id number] [place] [address] Aug, [facility] [place] [facility] [address] [id number] [place] [address] 24 Aug, 2014 [facility] [place] [facility] [address] [id number] [place] [address] Aug, [facility] [place] [facility] [address] [id number] [place] [address] Aug, [facility] [place] [facility] [address] [id number] [place] [address] Aug, [facility] [place] [facility] [address] [id number] [place] [address] Aug, 2013 [facility] [place] [facility] [address] [id number] [place] [address] Aug, 2013 [facility] [place] [facility] [address] [id number] [place] [address] Aug, 2013 [facility] [place] [facility] [address] [id number] [place] [address] Aug, 2013 [facility] [place] [facility] [address] [id number] [place] [address] Aug, 2013 [facility] [place] [facility] [address] [id number] [place] [address] Aug, [facility] [place] [facility] [address] [id number] [place] [address] Aug, [facility] [place] [facility] [address] [id number] [place] [address] 30 Jul, 2013 [facility] [place] [facility] [address] [id number] [place] [address] 30 Jul, 2013 [facility] [place] [facility] [address] [id number] [place] [address] 24 Jul, 2013 [facility] [place] [facility] [address] [id number] [place] [address] 24 Sep, 2013 [facility] [place] [facility] [address] [id number] [place] [address] 23 Sep, 2013 [facility] [place] [facility] [address] [id number] [place] [address] 23 Sep, 2013 [facility] [place] [facility] [address] [id number] [place] [address]- [address] 15 Sep, 2013 [facility] [place] [facility] [address] [id number] [place] [address] 15 Sep, 2013 [facility] [place] [facility] [address] [id number] [place] [address] 15 Jul, 2014 [facility] [address] [facility] [id number] [place] [address] 15 Jul, 2014 [facility] [address] [facility] [id number], [place] [address] Jul, [facility] [address] [facility] [id number], [place] [address] Jul, [facility] [address] [facility] [id number], [place] [address] Jul, [facility] [address] [facility] [id number], [place] [address] Jul, IMMUNIZATIONS No Known Immunizations SOCIAL HISTORY Never Assessed REASON FOR VISIT PLAN OF CARE VITAL SIGNS MEDICATIONS Medication Instructions Dosage Frequency Start Date End Date Duration Status Keflex 500 MG Orally every 12 hrs 1 capsule 12h Dec, Jan, 10 day(s) Active RESULTS No Results PROCEDURES No Known procedures INSTRUCTIONS MEDICATIONS ADMINISTERED No Known Medications MEDICAL (GENERAL) HISTORY Type Description Date Medical History hearing loss Medical History 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 Medical History acute renal failure Medical History hyperlipidemia Medical History type II diabetes Medical History Arthritis Medical History degenerative disease lumbosacral spine Medical History chronic pain r/t DDD Medical History fibromyalgia Medical History ID-stent to LAD Surgical History cholecystectomy 1983 Surgical [...] Influenza illness, hyperglycemia 2017 Hospitalization History [facility]- High BS (Pt left AMA) 01/05/2018 Hospitalization History [facility]- DKA and UTI. Discharged 01/14/2018 Hospitalization History [facility]- Nausea and Vomiting, cannot urinate 01/18/2018
--- OUTSIDE RECORDS SUMMARY | 2018-06-01 10:07 | XMS REPORT ---
Author Author LINH WILSON [facility] Address [address] [place] [address] Care Team Providers Care Sales Representative Metals Name Role Phone LINH WILSON Unavailable PROBLEMS Type Condition ICD9-CM Code [id number] Code Onset Dates Condition Status SNOMED Code Problem Dental caries K02.9 Active 33270156 Problem Primary insomnia F51.01 Active 4054621 Problem Seasonal allergic rhinitis due to pollen J30.1 Active 05505199 Problem Type 2 diabetes mellitus with hyperglycemia E11.65 Active 326022947206470 Problem Hyperlipidemia E78.5 Active 90637021 Problem Cervicalgia M54.2 Active 75170849 Problem Alterations of sensations R20.9 Active 710325652 Problem Other obesity due to excess calories E66.09 Active 704899980 Problem Arthritis M19.90 Active 8961150 Problem Diabetic mononeuropathy associated with type 2 diabetes mellitus E11.41 Active 608498368 Problem Body mass index (BMI) of 33.0-33.9 in adult Z68.33 Active 923000944 Problem GERD (gastroesophageal reflux disease) K21.9 Active 401809526 Problem FDC 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 Active 936807516 Problem Degenerative disc disease, lumbar M51.36 Active 70449671 Problem Fibromyalgia M79.7 Active 26895632 Problem Tobacco abuse Z72.0 Active 77340358 Problem Tobacco abuse counseling Z71.6 Active 528970926 Problem 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 I10 Active 75076592 Problem Chronic pain syndrome G89.4 Active 557641841 Problem CAD (coronary artery disease) I25.10 Active 60596305 Problem DM neuro manif type II E11.49 Active 24322121 ALLERGIES No Information ENCOUNTERS Encounter Location Date Diagnosis [facility] [address] 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 ; Nausea alone R11.0 ; 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 I10 ; GERD ( gastroesophageal reflux disease) K21.9 ; CAD (coronary artery disease) I25.10 and Diabetic mononeuropathy associated with type 2 diabetes mellitus E11.41 [place] [address] 96100- 7507 Apr, [place] [address] 12937- 0982 March, 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 I10 ; DM neuro manif type II E11.49 and GERD (gastroesophageal reflux disease) K21.9 [place] [address] 88241- 7657 March, DM neuro manif type II E11.49 and GERD (gastroesophageal reflux disease) K21.9 [place] [address] 22896- 8117 March, [place] [address] 42597- 2017 Feb, Tobacco abuse Z72.0 [place] [address] 47358- 6043 Feb, Tobacco abuse Z72.0 [place] [address] 19054- 4547 Feb, Hypokalemia E87.6 [place] [address] 61601- 7114 Feb, Hyperlipidemia E78.5 ; 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 I10 ; DM neuro manif type II E11.49 ; Fibromyalgia M79.7 ; Acute non-recurrent frontal sinusitis J01.10 ; Other obesity due to excess calories E66.09 and Body mass index (BMI) of 33.0-33.9 in adult Z68.[address] 52439- 9264 05 Jan, 2018 Dysuria R30.0 [place] [address] 73452- 5694 05 Jan, 2018 Dysuria R30.0 [place] [address] 33621- 1794 02 Jan, 2018 Acute cystitis with hematuria N30.01 ; DM neuro manif type II E11.49 ; 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 ; 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 I10 and Hospital discharge follow-up Z09 [address] 55545- 2098 27 Dec, 2017 Chest pain, unspecified type R07.9 ; Dehydration E86.0 and Anuria R34 [address] 83751- 1887 Dec, [address] 07142- 7844 Dec, Hyperglycemia R73.9 ; Dehydration E86.0 and Acute cystitis with hematuria N30.01 [facility] [address] [address] Dec, [facility] [address] [place] [address]44 -1991 Dec, [facility] [address] [place] [address] 94283 -5472 Dec, [facility] [address] [place] [address] 89301 -8769 16 Dec, 2017 Dysuria R30.0 ; Acute cystitis with hematuria N30.01 and Weakness R53.[address] 85752- 5019 Dec, [place] [id number] [place] [address] 33191- 1880 Nov, [place] [id number] [place] [address] 89002- 4517 Nov, [place] [id number] [place] [address] 06699- 8837 Nov, 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 I10 ; DM neuro manif type II E11.49 ; 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 ; Tobacco abuse Z72.0 ; Hyperlipidemia E78.5 ; Non-adherence to medical treatment Z91.19 ; GERD (gastroesophageal reflux disease) K21.9 ; Degenerative disc disease, lumbar M51.36 ; Fibromyalgia M79.7 ; Chronic pain syndrome G89.4 ; Dental caries K02.9 and Seasonal allergic rhinitis due to pollen J30.[address] 03191- 3465 Nov, Alterations of sensations R20.9 [place] [address] 96556- 3767 Sep, DM neuro manif type II E11.49 ; Hyperlipidemia E78.5 ; Degenerative disc disease, lumbar M51.36 and Chronic pain syndrome G89.4 [place] [id number] [place] [address] 80890- 3697 Sep, Arthritis M19.90 [place] [id number] [place] [address] 83628- 7396 Sep, Type 2 diabetes mellitus without complication E11.9 ; GERD ( gastroesophageal reflux disease) K21.9 ; Arthritis M19.90 and Chronic pain syndrome G89.4 [place] [id number] [place] [address] 17925- 4684 Sep, [place] [id number] [place] [address] 24536- 8707 Aug, [place] [address] 13313- 8097 18 Aug, 2017 Type 2 diabetes mellitus without complication E11.9 [facility] [id number] [place] [address] 93655- 7634 17 Aug, 2017 [facility] [id number] [place] [address] 48458- 6582 16 Aug, 2017 [facility] [id number] [place] [address] 12822- 3878 Aug, [facility] [id number] [place] [address] 33228- 2230 26 Jul, 2017 [facility] [id number] [place] [address] 16430 -7447 22 Jul, 2017 Acute non-recurrent frontal sinusitis J01.10 [place] [id number] [place] [address] 49478- 1864 20 Jul, 2017 CAD (coronary artery disease) I25.10 and GERD ( gastroesophageal reflux disease) K21.9 [place] [id number] [place] [address] 87524- 6895 14 Jul, 2017 Localized swelling, mass and lump, neck R22.1 [place] [id number] [place] [address] 14473- 7750 06 Jul, 2017 [place] [id number] [place] [address] 19042- 0915 15 Jun, 2017 Type 2 diabetes mellitus without complication E11.9 ; Primary insomnia F51.01 ; Alterations of sensations R20.9 ; Hyperlipidemia E78.5 ; GERD (gastroesophageal reflux disease) K21.9 ; 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 I10 ; FDC 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 ; Tobacco abuse Z72.0 ; Tobacco abuse counseling Z71.6 and CAD (coronary artery disease) I25.10 [place] [id number] [place] [address] 00556- 6838 May, [place] [id number] [place] [address] 46489- 9213 May, Type 2 diabetes mellitus without complication E11.9 [facility] [address] [address] May, [facility] [id number] [place] [address] 81669- 4752 March, [facility] [id number] [place] [address] 86223- 2609 Feb, [facility] [id number] [place] [address] 54256 -7810 Jan, Acute suppurative otitis media of left ear with spontaneous rupture of tympanic membrane, recurrence not specified H66.012 [place] [id number] [place] [address] 98495- 0937 Dec, Type 2 diabetes mellitus without complication E11.9 ; Lumbago M54.5 ; Cervicalgia M54.2 ; Hyperlipidemia E78.5 ; GERD ( gastroesophageal reflux disease) K21.9 ; Chronic pain syndrome G89.4 ; Dysuria R30.0 and 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 I10 [place] [id number] [place] [address] 74615- 4506 Oct, [place] [id number] [place] [address] 74854- 0011 30 Sep, 2016 Diabetic mononeuropathy associated with type 2 diabetes mellitus E11.41 and Coughing R05 [place] [id number] [place] [address] 96314- 6782 28 Sep, 2016 Diabetic mononeuropathy associated with type 2 diabetes mellitus E11.41 and Coughing R05 [place] [id number] [place] [address] 37563- 4782 Sep, Onychomycosis B35.1 ; Neuritis M79.2 and Type 2 diabetes mellitus without complication E11.9 [facility] [id number] [place] [address] 04146- 2699 14 Sep, 2016 [place] [id number] [place] [address] 06768- 2987 Sep, Cough R05 ; Seasonal allergic rhinitis due to pollen J30.1 and Acute upper respiratory infection, unspecified J06.9 [place] [id number] [place] [address] 17428- 6475 Sep, [place] [address] 69392- 3677 Aug, [place] [address] 61589- 5476 Jul, Type 2 diabetes mellitus without complication E11.9 ; Chronic pain G89.29 ; 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 I10 and Acute non-recurrent maxillary sinusitis J01.00 [place] [address] 70751- 9756 Jul, Chronic pain syndrome G89.4 ; Lumbago M54.5 and Cervicalgia M54.[address] 57870- 5204 Jul, [place] [address] 85150- 0453 Jul, [place] [address] 54206- 2148 Jun, Onychomycosis B35.1 ; Onychocryptosis L60.0 and DM neuro manif type II E11.49 [place] [id number] [place] [address] 93471- 6922 Jun, Type 2 diabetes mellitus without complication E11.9 ; Pain in unspecified hip M25.559 ; Other chronic pain G89.29 ; Lumbago M54.5 ; Chronic pain G89.29 ; Insomnia, unspecified G47.00 ; GERD (gastroesophageal reflux disease) K21.9 and Dental caries K02.9 [place] [id number] [place] [address] 62650- 8331 Jun, Type 2 diabetes mellitus without complication E11.9 ; Lumbago M54.5 ; Chronic pain G89.29 ; Insomnia, unspecified G47.00 ; GERD ( gastroesophageal reflux disease) K21.9 ; Dental caries K02.9 ; Pain in unspecified hip M25.559 and Other chronic pain G89.29 [place] [id number] [place] [address] 46537- 7404 May, [place] [address] 56671- 5920 May, Type 2 diabetes mellitus without complication E11.9 ; 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 I10 ; Chronic pain syndrome G89.4 ; Other seasonal allergic rhinitis J30.2 and Insomnia, unspecified G47.00 [place] [address] 55222- 7524 Apr, [place] [address] 88054- 1676 Apr, Hypertension I10 and Chronic pain G89.29 [place] [address] 43680- 2679 March, Onychomycosis B35.1 ; Onychocryptosis L60.0 and Type 2 diabetes mellitus without complication E11.9 [place] [id number] [place] [address] 19732- 0009 March, Type 2 diabetes mellitus without complication E11.9 ; 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 I10 ; Alterations of sensations R20.9 ; Chronic pain syndrome G89.4 ; Tobacco abuse Z72.0 and Tobacco abuse counseling Z71.6 [place] [id number] [place] [address] 54666- 6256 Feb, Cough R05 ; Type 2 diabetes mellitus without complication E11.9 ; Tobacco abuse counseling Z71.6 and Chronic pain G89.29 [place] [id number] [place] [address] 68618- 5432 Feb, [place] [id number] [place] [address] 67528- 9425 Feb, Type 2 diabetes mellitus without complication E11.9 ; Lumbago M54.5 ; Cervicalgia M54.2 ; Degenerative disc disease, lumbar M51.36 and Numbness and tingling of both legs 782.0 [facility] [id number] [place] [address] [id number] Jan, Dental caries K02.9 and Encounter for dental examination Z01.20 [place] [id number] [place] [address] 12433- 1424 Jan, Type 2 diabetes mellitus without complication E11.9 [place] [address] 85301- 3259 Jan, Type 2 diabetes mellitus without complication E11.9 ; Numbness and tingling of both legs 782.0 ; Fibromyalgia M79.7 ; Hyperlipidemia E78.5 ; Lumbago M54.5 ; Cervicalgia M54.2 ; Hypertension I10 ; CAD (coronary artery disease) I25.10 ; Tobacco abuse Z72.0 ; Tobacco abuse counseling Z71.6 and GERD (gastroesophageal reflux disease) K21.9 [place] [id number] [place] [address] 87986- 9570 Jan, [place] [address] 99084- 0223 Dec, [facility] [id number] [place] [address] [id number] Dec, Dental examination Z01.20 and Dental caries K02.9 [place] [id number] [place] [address] 96640- 1264 Dec, Edema R60.9 ; Type 2 diabetes mellitus without complication E11.9 ; Hypertension I10 and Mouth pain K13.[address] 70845- 8893 Dec, Degenerative disc disease, lumbar M51.36 [place] [id number] [place] [address] 19556- 7327 Dec, [place] [id number] [address]- 8958 Nov, Insomnia, unspecified G47.00 [place] [address] 59503- 0836 Nov, Type 2 diabetes mellitus without complication E11.9 ; Lumbago M54.5 ; Degenerative disc disease, lumbar M51.36 ; Fibromyalgia M79.7 ; Coronary artery disease I25.10 ; Hyperlipidemia E78.5 ; Controlled substance agreement signed Z79.899 ; Dysuria R30.0 ; Insomnia, unspecified G47.00 ; GERD ( gastroesophageal reflux disease) K21.9 ; Hypertension 401.9 and 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 [place] [address] 68848- 2374 Nov, [place] [address] 31585- 0427 Oct, Degenerative disc disease, lumbar M51.36 ; Cervicalgia M54.2 ; Insomnia, unspecified G47.00 ; Decreased GFR R94.4 and GERD ( gastroesophageal reflux disease) K21.9 [place] [address] 17713- 2733 Oct, Lumbago M54.5 [place] [address] 17188- 1044 Oct, Low back pain M54.5 [place] [address] 48944- 0226 Oct, [place] [address] 25971- 4430 Oct, Disorientation R41.0 [place] [address] 41270- 2138 Oct, Type 2 diabetes mellitus without complication E11.9 ; Disorientation R41.0 and Chest pain R07.9 [place] [address] 41609- 7894 Oct, [facility] [id number] [place] [address] 15151- 7569 Sep, Low back pain M54.5 [facility] [id number] [place] [address] 10650- 2085 Sep, Insomnia, unspecified G47.00 [facility] [id number] [place] [address] 65425- 8022 Aug, Degenerative disc disease, lumbar M51.36 ; Type 2 diabetes mellitus without complication E11.9 and Encounter for immunization Z23 [facility] [id number] [place] [address] 05997- 3955 Aug, [facility] [id number] [place] [address] 19870- 6460 Aug, [facility] [id number] [place] [address] 65013- 9539 Aug, [facility] [id number] [place] [address] 97181- 9386 Jul, [facility] [id number] [place] [address] 58345- 1073 Jun, [facility] [id number] [place] [address] 57897- 1957 Jun, Chest pain 786.50 and Lumbago 724.2 [facility] [id number] [place] [address] 83820- 7566 Jun, [facility] [id number] [place] [address] 56717- 5680 Jun, [facility] [id number] [place] [address] [id number] Jun, Dental examination V72.2 [facility] [id number] [place] [address] 20583- 8930 Jun, [facility] [id number] [place] [address] 44795- 5520 May, Left shoulder pain 719.41 and Numbness and tingling of both legs 782.0 [facility] [id number] [place] [address] 78621- 9693 May, Cough 786.2 ; Numbness and tingling of both legs 782.0 and Acute rhinitis 460 [facility] [id number] [place] [address] 98347- 0193 May, [facility] [id number] [place] [address] 20251- 8518 Apr, [facility] [id number] [place] [address] 76594- 3955 Apr, Bilateral lower extremity edema 782.3 ; Lumbago 724.2 and Insomnia 780.52 [facility] [id number] [place] [address] 36349- 9985 Apr, [facility] [id number] [place] [address] 93625- 8916 Apr, [facility] [id number] [place] [address] 05897- 9765 March, Seborrheic keratosis 702.19 and Skin lesion of face 709.9 [facility] [id number] [place] [address] 02990- 4428 March, [facility] [id number] [place] [address] 76089- 5574 March, [facility] [id number] [place] [address] 55004- 2366 March, [facility] [id number] [place] [address] 10013948- 2542 March, [facility] [id number] [place] [address] 23235- 6558 14 Feb, 2015 [facility] [id number] [place] [address] 62246- 7947 13 Feb, 2015 [facility] [place] [facility] [address] [id number] [place] [address]- 0853 25 Jan, 2015 [facility] [place] [facility] [address] [id number] [place] [address]- 8874 25 Jan, 2015 [facility] [place] [facility] [address] [id number] [place] [address]- 4686 16 Jan, 2015 [facility] [place] [facility] [address] [id number] [place] [address]- 3733 16 Jan, 2015 [facility] [place] [facility] [address] [id number] [place] [address]- 8244 16 Jan, 2015 [facility] [place] [facility] [address] [id number] [place] [address]- 2758 16 Jan, 2015 [facility] [place] [facility] [address] [id number] [place] [address]- 3313 Jan, [facility] [place] [facility] [address] [id number] [place] [address]- 7105 13 Jan, 2015 [facility] [place] [facility] [address] [id number] [place] [address]- 3687 Jan, [facility] [place] [facility] [address] [id number] [place] [address]- 7754 Jan, [facility] [place] [facility] [address] [id number] [place] [address]- 1815 Jan, [facility] [place] [facility] [address] [id number] [address]- 8151 Dec, [facility] [place] [facility] [address] [id number] [place] [address]- 7587 Dec, [facility] [place] [facility] [address] [id number] [place] [address]- 7794 Dec, [facility] [place] [facility] [address] [id number] [place] [address]- 7614 Dec, [facility] [place] [facility] [address] [id number] [place] [address]- 2675 12 Dec, 2014 [facility] [address] [id number] [place] [address]- 6403 Dec, [facility] [address] [id number] [place] [address]- 0616 Nov, [facility] [address] [id number] [place] [address]- 8990 Nov, [facility] [place] [facility] [address] [id number] [place] [address]- 9725 Nov, [facility] [address] [id number] [place] [address]- 6474 Nov, [facility] [address] [id number] [place] [address]- 3611 Nov, [facility] [address] [id number] [place] [address]- 6786 Nov, [facility] [address] [id number] [place] [address]- 1542 Nov, [facility] [address] [id number] [place] [address]- 8264 Nov, [facility] [address] [id number] [place] [address]- 7411 Nov, [facility] [place] [facility] [address] [id number] [place] [address]- 0289 Nov, [facility] [place] [facility] [address] [id number] [place] [address]- 6168 Nov, [facility] [place] [facility] [address] [id number] [place] [address]- 7406 Oct, [facility] [place] [facility] [address] [id number] [place] [address]- 8196 Oct, [facility] [place] [facility] [address] [id number] [place] [address]- 6051 Oct, [facility] [place] [facility] [address] [id number] [place] [address]- 1020 Oct, [facility] [place] [facility] [address] [id number] [place] [address] Oct, [facility] [place] [facility] [address] [id number] [place] [address] Oct, [facility] [place] [facility] [address] [id number] [place] [address] Oct, [facility] [place] [facility] [address] [id number] [place] [address] Oct, [facility] [place] [facility] [address] [id number] [place] [address] Oct, [facility] [place] [facility] [address] [id number] [place] [address] Oct, [facility] [place] [facility] [address] [id number] [place] [address] Sep, [facility] [place] [facility] [address] [id number] [place] [address] Sep, [facility] [place] [facility] [address] [id number] [place] [address] Sep, [facility] [place] [facility] [address] [id number] [place] [address] Sep, [facility] [place] [facility] [address] [id number], [place] [address] Sep, [facility] [place] [facility] [address] [id number] [place] [address] Sep, [facility] [place] [facility] [address] [id number] [place] [address] Sep, [facility] [place] [facility] [address] [id number] [place] [address] Sep, [facility] [place] [facility] [address] [id number] [place] [address] 17 Sep, 2014 [facility] [place] [facility] [address] [id number] [place] [address] 17 Sep, 2014 [facility] [place] [facility] [address] [id number] [place] [address] Sep, [facility] [place] [facility] [address] [id number] [place] [address] Sep, [facility] [place] [facility] [address] [id number] [place] [address] Sep, [facility] [place] [facility] [address] [id number] [place] [address] 30 Aug, 2014 [facility] [place] [facility] [address] [id number] [place] [address] 30 Aug, 2014 [facility] [place] [facility] [address] [id number] [place] [address] 30 Aug, 2014 [facility] [place] [facility] [address] [id number] [place] [address] 30 Aug, 2014 [facility] [place] [facility] [address] [id number] [place] [address] 30 Aug, 2014 [facility] [place] [facility] [address] [facility] [id number] [place] [address] 30 Aug, 2014 [facility] [place] [facility] [address] [id number] [place] [address] Aug, [facility] [place] [facility] [address] [id number] [place] [address] 24 Aug, 2014 [facility] [place] [facility] [address] [id number] [place] [address] Aug, [facility] [place] [facility] [address] [id number] [place] [address] Aug, [facility] [place] [facility] [address] [id number] [place] [address] Aug, [facility] [place] [facility] [address] [id number] [place] [address] Aug, 2013 [facility] [place] [facility] [address] [id number] [place] [address] Aug, 2013 [facility] [place] [facility] [address] [id number] [place] [address] Aug, 2013 [facility] [place] [facility] [address] [id number] [place] [address] Aug, 2013 [facility] [place] [facility] [address] [id number] [place] [address] Aug, 2013 [facility] [place] [facility] [address] [id number] [place] [address] Aug, [facility] [place] [facility] [address] [id number] [place] [address] Aug, [facility] [place] [facility] [address] [id number] [place] [address] 30 Jul, 2013 [facility] [place] [facility] [address] [id number] [place] [address] 30 Jul, 2013 [facility] [place] [facility] [address] [id number] [place] [address] 24 Jul, 2013 [facility] [place] [facility] [address] [id number] [place] [address] 24 Sep, 2013 [facility] [place] [facility] [address] [id number] [place] [address] 23 Sep, 2013 [facility] [place] [facility] [address] [id number] [place] [address] 23 Sep, 2013 [facility] [place] [facility] [address] [id number] [place] [address] 15 Sep, 2013 [facility] [place] [facility] [address] [id number] [place] [address] 15 Sep, 2013 [facility] [place] [facility] [address] [id number] [place] [address] 15 Jul, 2014 [facility] [address] [facility] [id number] [place] [address] 15 Jul, 2014 [facility] [address] [facility] [id number], [place] [address] Jul, [facility] [address] [facility] [id number], [place] [address] Jul, [facility] [address] [facility] [id number], [place] [address] Jul, [facility] [address] [facility] [id number], [place] [address] Jul, IMMUNIZATIONS No Known Immunizations SOCIAL HISTORY Never Assessed REASON FOR VISIT returning missed call about prescription change PLAN OF CARE VITAL SIGNS MEDICATIONS Unknown [...] r/t DDD Medical History fibromyalgia Medical History [place]-stent to [facility]AD Surgical History cholecystectomy 1983 Surgical [...] Influenza illness, hyperglycemia 2017 Hospitalization History [facility] [place]- High BS (Pt left AMA) 01/05/2018 Hospitalization History [facility]- DKA and UTI. Discharged 01/14/2018 Hospitalization History [facility] [place]- Nausea and Vomiting, cannot urinate 01/18/2018
--- OUTSIDE RECORDS SUMMARY | 2018-06-01 10:08 | XMS REPORT ---
Author Author BURKSMARCELINO Rene Organization [facility] Address [address] [place] [address] Care Team Providers Care Decontaminator Name Role Phone MARCELINO BURKS Unavailable PROBLEMS Type Condition ICD9-CM Code SZG73-UD Code Onset Dates Condition Status SNOMED Code Problem Tobacco abuse counseling Z71.6 Active 619745322 Problem DM neuro manif type II E11.49 Active 02097040 Problem Chronic pain syndrome G89.4 Active 895797626 Problem Other obesity due to excess calories E66.09 Active 967438715 Problem Body mass index (BMI) of 33.0-33.9 in adult Z68.33 Active 105996931 Problem Seasonal allergic rhinitis due to pollen J30.1 Active 33786118 Problem Dental caries K02.9 Active 29531912 Problem Arthritis M19.90 Active 7379543 Problem Primary insomnia F51.01 Active 6823856 Problem Hyperlipidemia E78.5 Active 15341376 Problem Degenerative disc disease, lumbar M51.36 Active 77156299 Problem Alterations of sensations R20.9 Active 272177587 Problem long-term 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 Active 647045122 Problem 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 I10 Active 33951968 Problem Fibromyalgia M79.7 Active 45215296 Problem CAD (coronary artery disease) I25.10 Active 65170101 Problem GERD (gastroesophageal reflux disease) K21.9 Active 964916144 Problem Tobacco abuse Z72.0 Active 50487692 ALLERGIES No Information ENCOUNTERS Encounter Location Date Diagnosis [facility] [id number] [place] [address] 77355- 5330 Feb, Tobacco abuse Z72.0 [facility] [address] [address] 6906 Feb, Tobacco abuse Z72.0 [facility] [address] [place] [id number] [address] 8[address] Feb, Hypokalemia E87.6 [place] [address] 54164- 6689 Feb, Hyperlipidemia E78.5 ; 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 I10 ; DM neuro manif type II E11.49 ; Fibromyalgia M79.7 ; Acute non-recurrent frontal sinusitis J01.10 ; Other obesity due to excess calories E66.09 and Body mass index (BMI) of 33.0-33.9 in adult Z68.33 [place] [address] 79295- 9704 Jan, Dysuria R30.0 [place] [address] 12087- 2510 Jan, Dysuria R30.0 [place] [address] 17540- 6424 Jan, Acute cystitis with hematuria N30.01 ; DM neuro manif type II E11.49 ; long term 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 ; 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 I10 and Hospital discharge follow-up Z09 [place] [address] 71891- 1670 Dec, Chest pain, unspecified type R07.9 ; Dehydration E86.0 and Anuria R34 [place] [address] 33239- 7495 Dec, [place] [address] 20520- 3268 Dec, Hyperglycemia R73.9 ; Dehydration E86.0 and Acute cystitis with hematuria N30.01 [facility] [place] [address] 024[address] -5904 Dec, [facility] [place] [address] 52030 -3507 Dec, [facility] [address] 39878 -7096 Dec, [facility] [id number] [place] [address] 49373 -0041 16 Dec, 2017 Dysuria R30.0 ; Acute cystitis with hematuria N30.01 and Weakness R53.1 [facility] [id number] [place] [address] 68657- 5303 09 Dec, 2017 [facility] [address] 63234- 1852 Nov, [place] [address] 01720- 7175 Nov, [facility] [address] 20652- 1457 Nov, 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 I10 ; DM neuro manif type II E11.49 ; long-term 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 ; Tobacco abuse Z72.0 ; Hyperlipidemia E78.5 ; Non-adherence to medical treatment Z91.19 ; GERD (gastroesophageal reflux disease) K21.9 ; Degenerative disc disease, lumbar M51.36 ; Fibromyalgia M79.7 ; Chronic pain syndrome G89.4 ; Dental caries K02.9 and Seasonal allergic rhinitis due to pollen J30.1 [facility] [address] [id number] [place] [address] 62019- 2986 Nov, Alterations of sensations R20.9 [place] [address] [place] [id number] [place] [address] 24207- 5270 Sep, DM neuro manif type II E11.49 ; Hyperlipidemia E78.5 ; Degenerative disc disease, lumbar M51.36 and Chronic pain syndrome G89.4 [place] [address] [place] [id number] [place] [address] 11830- 6559 Sep, Arthritis M19.90 [facility] [address] 40149- 3343 Sep, Type 2 diabetes mellitus without complication E11.9 ; GERD ( gastroesophageal reflux disease) K21.9 ; Arthritis M19.90 and Chronic pain syndrome G89.4 [facility] [address], [place] [address]- 3041 Sep, [facility] [id number] [place] [address] 17664- 0501 Aug, [facility] [id number] [place] [address] 78829- 1796 Aug, Type 2 diabetes mellitus without complication E11.9 [facility] [id number] [place] [address] 09380- 3359 Aug, [facility] [address] [id number] [place] [address] 93539- 2370 Aug, [facility] [address] [id number] [place] [address] 25482- 4889 Aug, [facility] [id number] [place] [address] 93305- 2644 Jul, [facility] [id number] [place] [address] 78427 -3944 Jul, Acute non-recurrent frontal sinusitis J01.10 [place] [address] [place] [id number] [place] [address] 59404- 1709 20 Jul, 2017 CAD (coronary artery disease) I25.10 and GERD ( gastroesophageal reflux disease) K21.9 [place] [address] [place] [id number] [place] [address] 53511- 7053 14 Jul, 2017 Localized swelling, mass and lump, neck R22.1 [place] [address] [place] [id number] [place] [address] 83615- 7595 06 Jul, 2017 [place] [address] [place] [id number] [place] [address] 34713- 8123 Jun, Type 2 diabetes mellitus without complication E11.9 ; Primary insomnia F51.01 ; Alterations of sensations R20.9 ; Hyperlipidemia E78.5 ; GERD (gastroesophageal reflux disease) K21.9 ; 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 I10 ; long-term 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 ; Tobacco abuse Z72.0 ; Tobacco abuse counseling Z71.6 and CAD (coronary artery disease) I25.10 [place] [address] [place] [id number] [place] [address] 65432- 8816 May, [place] [address] [place] [id number] [place] [address] 28212- 5807 May, Type 2 diabetes mellitus without complication E11.9 [place] [address] 28459- 7027 May, [place] [address] [place] [id number] [place] [address] 95956- 2980 March, [place] [address] 55742- 4856 Feb, [facility] [id number] [place] [address] 48798 -5207 Jan, Acute suppurative otitis media of left ear with spontaneous rupture of tympanic membrane, recurrence not specified H66.012 [place] [address] [place] [id number] [place] [address] 75673- 2669 Dec, Type 2 diabetes mellitus without complication E11.9 ; Lumbago M54.5 ; Cervicalgia M54.2 ; Hyperlipidemia E78.5 ; GERD ( gastroesophageal reflux disease) K21.9 ; Chronic pain syndrome G89.4 ; Dysuria R30.0 and 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 I10 [place] [address] [place] [id number] [place] [address] 19075- 2550 Oct, [place] [address] [place] [id number] [place] [address] 06599- 1294 Sep, Diabetic mononeuropathy associated with type 2 diabetes mellitus E11.41 and Coughing R05 [place] [address] [place] [id number] [place] [address] 39294- 8320 Sep, Diabetic mononeuropathy associated with type 2 diabetes mellitus E11.41 and Coughing R05 [place] [address] [place] [id number] [place] [address] 27121- 3141 Sep, Onychomycosis B35.1 ; Neuritis M79.2 and Type 2 diabetes mellitus without complication E11.9 [place] [address] [place] [id number] [place] [address] 90029- 2247 14 Sep, 2016 [place] [address] [place] [id number] [place] [address] 73659- 9950 Sep, Cough R05 ; Seasonal allergic rhinitis due to pollen J30.1 and Acute upper respiratory infection, unspecified J06.9 [place] [address] [place] [id number] [place] [address] 26901- 4602 Sep, [place] [address] 48145- 1972 Aug, [place] [address] 21511- 5982 Jul, Type 2 diabetes mellitus without complication E11.9 ; Chronic pain G89.29 ; 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 I10 and Acute non-recurrent maxillary sinusitis J01.00 [place] [address] [place] [id number] [place] [address] 61809- 2948 Jul, Chronic pain syndrome G89.4 ; Lumbago M54.5 and Cervicalgia M54.2 [place] [address] [place] [id number] [place] [address] 50839- 4164 Jul, [place] [address] [place] [id number] [place] [address] 30457- 7822 Jul, [place] [address] [place] [id number] [place] [address] 32503- 5098 Jun, Onychomycosis B35.1 ; Onychocryptosis L60.0 and DM neuro manif type II E11.49 [place] [address] [place] [address] 13371- 6240 Jun, Type 2 diabetes mellitus without complication E11.9 ; Pain in unspecified hip M25.559 ; Other chronic pain G89.29 ; Lumbago M54.5 ; Chronic pain G89.29 ; Insomnia, unspecified G47.00 ; GERD (gastroesophageal reflux disease) K21.9 and Dental caries K02.[address] 10184- 9194 Jun, Type 2 diabetes mellitus without complication E11.9 ; Lumbago M54.5 ; Chronic pain G89.29 ; Insomnia, unspecified G47.00 ; GERD ( gastroesophageal reflux disease) K21.9 ; Dental caries K02.9 ; Pain in unspecified hip M25.559 and Other chronic pain G89.29 [place] [address] 42648- 0371 May, [address] 66230- 1976 May, Type 2 diabetes mellitus without complication E11.9 ; 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 I10 ; Chronic pain syndrome G89.4 ; Other seasonal allergic rhinitis J30.2 and Insomnia, unspecified G47.00 [place] [address] 01109- 7993 Apr, [address] 06100- 1725 Apr, Hypertension I10 and Chronic pain G89.[address] 24541- 5664 March, Onychomycosis B35.1 ; Onychocryptosis L60.0 and Type 2 diabetes mellitus without complication E11.9 [place] [address] [place] [id number] [place] [address] 12830- 6441 March, Type 2 diabetes mellitus without complication E11.9 ; 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 I10 ; Alterations of sensations R20.9 ; Chronic pain syndrome G89.4 ; Tobacco abuse Z72.0 and Tobacco abuse counseling Z71.[address] 48194- 9574 Feb, Cough R05 ; Tobacco abuse counseling Z71.6 ; Chronic pain G89.29 and Type 2 diabetes mellitus without complication E11.9 [place] [address] [place] [id number] [place] [address] 10441- 3187 Feb, [place] [address] 29651- 6766 Feb, Type 2 diabetes mellitus without complication E11.9 ; Lumbago M54.5 ; Cervicalgia M54.2 ; Degenerative disc disease, lumbar M51.36 and Numbness and tingling of both legs 782.0 [facility] [address] [id number] Jan, Dental caries K02.9 and Encounter for dental examination Z01.[address] 06395- 2139 Jan, Type 2 diabetes mellitus without complication E11.[address] 70687- 8049 Jan, Type 2 diabetes mellitus without complication E11.9 ; Numbness and tingling of both legs 782.0 ; Fibromyalgia M79.7 ; Hyperlipidemia E78.5 ; Lumbago M54.5 ; Cervicalgia M54.2 ; Hypertension I10 ; CAD (coronary artery disease) I25.10 ; Tobacco abuse Z72.0 ; Tobacco abuse counseling Z71.6 and GERD (gastroesophageal reflux disease) K21.9 [place] [id number] [place] [address] 62168- 0730 Jan, [place] [address] 13351- 9154 Dec, [facility] [address] [place] [id number] [place] [address] [id number] Dec, Dental examination Z01.20 and Dental caries K02.9 [place] [address] 28594- 4341 Dec, Edema R60.9 ; Type 2 diabetes mellitus without complication E11.9 ; Hypertension I10 and Mouth pain K13.79 [place] [address] [place] [id number] [place] [address] 36668- 9623 Dec, Degenerative disc disease, lumbar M51.36 [place] [address] 40926- 7330 Dec, [place] [address] 50300- 7650 Nov, Insomnia, unspecified G47.00 [place] [address] 74396- 6796 Nov, Type 2 diabetes mellitus without complication E11.9 ; Lumbago M54.5 ; Degenerative disc disease, lumbar M51.36 ; Fibromyalgia M79.7 ; Coronary artery disease I25.10 ; Hyperlipidemia E78.5 ; Controlled substance agreement signed Z79.899 ; Dysuria R30.0 ; Insomnia, unspecified G47.00 ; GERD ( gastroesophageal reflux disease) K21.9 ; Hypertension 401.9 and long-term 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 88781- 4521 Nov, [address] 20656- 3984 Oct, Degenerative disc disease, lumbar M51.36 ; Cervicalgia M54.2 ; Insomnia, unspecified G47.00 ; Decreased GFR R94.4 and GERD ( gastroesophageal reflux disease) K21.9 [place] [address] [place] [id number] [place] [address] 91650- 7963 Oct, Lumbago M54.5 [place] [address] 29315- 9898 Oct, Low back pain M54.5 [place] [address] 97101- 4190 Oct, [place] [address] 73180- 3846 Oct, Disorientation R41.0 [facility] [address] [place] [id number] [place] [address] 24400- 5820 Oct, Type 2 diabetes mellitus without complication E11.9 ; Disorientation R41.0 and Chest pain R07.9 [facility] [address] [place] [id number] [place] [address] 32058- 4114 Oct, [facility] [address] [place] [id number] [place] [address] 97838- 1127 Sep, Low back pain M54.5 [facility] [address] [place] [id number] [place] [address] 29334- 8807 Sep, Insomnia, unspecified G47.00 [facility] [address] [place] [id number] [place] [address] 03056- 8640 Aug, Degenerative disc disease, lumbar M51.36 ; Type 2 diabetes mellitus without complication E11.9 and Encounter for immunization Z23 [facility] [address] [place] [id number] [place] [address] 82550- 4410 Aug, [facility] [address] [place] [id number] [place] [address] 27271- 2929 Aug, [facility] [address] [place] [id number] [place] [address] 11901- 7980 Aug, [facility] [address] [id number] [place] [address] 85236- 8289 Jul, [facility] [address] [id number] [place] [address] 68415- 2885 Jun, [facility] [address] [place] [id number] [place] [address] 49107- 9317 Jun, Chest pain 786.50 and Lumbago 724.2 [facility] [address] [place] [id number] [place] [address] 79928- 0926 Jun, [facility] [address] [place] [id number] [place] [address] 86026- 5252 Jun, [facility] [address] [id number] Jun, Dental examination V72.2 [facility] [address] [place] [id number] [place] [address] 07870- 0170 Jun, [facility] [address] [place] [id number] [place] [address] 99722- 5614 May, Left shoulder pain 719.41 and Numbness and tingling of both legs 782.0 [facility] [address] 75376- 9611 May, Cough 786.2 ; Numbness and tingling of both legs 782.0 and Acute rhinitis 460 [facility] [address] [place] [id number] [place] [address] 43946- 3104 May, [facility] [address] [place] [id number] [place] [address] 80579- 8213 Apr, [facility] [address] [place] [id number] [place] [address] 68861- 5565 Apr, Bilateral lower extremity edema 782.3 ; Lumbago 724.2 and Insomnia 780.52 [facility] [address] [place] [id number] [place] [address] 69483- 7307 Apr, [facility] [address] [place] [id number] [place] [address] 63107- 7081 Apr, [facility] [address] [place] [id number] [place] [address] 54734- 1302 March, Seborrheic keratosis 702.19 and Skin lesion of face 709.9 [facility] [address] [place] [id number] [place] [address] 93596- 9354 March, [facility] [address] [place] [id number] [place] [address] 10315- 0086 March, [facility] [address] [place] [id number] [place] [address] 37553- 4806 March, [facility] [place] [facility] [address] [id number] [place] [address]- 5236 March, [facility] [place] [facility] [address] [id number] [place] [address]- 2057 14 Feb, 2015 [facility] [place] [facility] [address] [id number] [place] [address]- 8933 Feb, [facility] [place] [facility] [address] [id number] [place] [address]- 4212 25 Jan, 2015 [facility] [place] [facility] [address] [id number] [place] [address]- 0810 25 Jan, 2015 [facility] [place] [facility] [address] [id number] [place] [address]- 5880 16 Jan, 2015 [facility] [place] [facility] [address] [id number] [place] [address]- 0824 16 Jan, 2015 [facility] [place] [facility] [address] [id number] [place] [address]- 4808 16 Jan, 2015 [facility] [place] [facility] [address] [id number] [place] [address]- 6787 16 Jan, 2015 [facility] [place] [facility] [address] [id number] [place] [address]- 9683 13 Jan, 2015 [facility] [place] [facility] [address] [id number] [place] [address]- 0429 13 Jan, 2015 [facility] [place] [facility] [address] [id number] [place] [address]- 6783 13 Jan, 2015 [facility] [place] [facility] [address] [id number] [place] [address]- 0124 13 Jan, 2015 [facility] [place] [facility] [address] [id number] [place] [address]- 5155 10 Jan, 2015 [facility] [place] [facility] [address] [id number] [place] [address]- 8636 27 Dec, 2014 [facility] [place] [facility] [address] [id number] [place] [address]- 0402 Dec, [facility] [place] [facility] [address] [id number] [place] [address]- 1916 Dec, [facility] [place] [facility] [address] [id number] [place] [address]- 3606 Dec, [facility] [place] [facility] [address] [id number] [place] [address]- 3414 Dec, [facility] [place] [facility] [address] [id number] [place] [address]- 8767 Dec, [facility] [place] [facility] [address] [id number] [place] [address]- 9294 Nov, [facility] [place] [facility] [address] [id number] [place] [address]- 5608 Nov, [facility] [place] [facility] [address] [id number] [place] [address]- 4521 Nov, [facility] [place] [facility] [address] [id number] [place] [address]- 8559 Nov, [facility] [place] [facility] [address] [id number] [place] [address]- 7326 Nov, [facility] [place] [facility] [address] [id number] [place] [address]- 3169 Nov, [facility] [place] [facility] [address] [id number], [place] [address]- 7150 Nov, [facility] [place] [facility] [address] [id number], [place] [address]- 0857 Nov, [facility] [place] [facility] [address] [id number], [place] [address]- 8636 Nov, [facility] [place] [facility] [address] [id number], [place] [address]- 0685 Nov, [facility] [place] [facility] [address] [id number] [place] [address]- 2959 Nov, [facility] [place] [facility] [address] [id number] [place] [address]- 7943 Oct, [facility] [place] [facility] [address] [id number] [place] [address]- 7645 Oct, [facility] [place] [facility] [address] [id number] [place] [address]- 9573 Oct, [facility] [place] [facility] [address] [id number] [place] [address]- 5207 Oct, [facility] [place] [facility] [address] [id number] [place] [address]- 6228 Oct, [facility] [place] [facility] [address] [id number] [place] [address]- 3302 Oct, [facility] [place] [facility] [address] [id number] [place] [address]- 5340 Oct, [facility] [place] [facility] [address] [id number] [place] [address]- 1442 Oct, [facility] [place] [facility] [address] [id number] [place] [address]- 8910 Oct, [facility] [place] [facility] [address] [id number] [place] [address]- 8414 Oct, [facility] [place] [facility] [address] [id number] [place] [address]- 5169 Sep, [facility] [place] [facility] [address] [id number] [place] [address]- 9876 Sep, [facility] [place] [facility] [address] [id number] [place] [address]- 5747 Sep, [facility] [place] [facility] [address] [id number] [place] [address]- 3187 Sep, [facility] [place] [facility] [address] [id number] [place] [address]- 4661 Sep, [facility] [place] [facility] [address] [id number] [place] [address]- 8404 Sep, [facility] [place] [facility] [address] [id number] [place] [address]- 2962 Sep, [facility] [place] [facility] [address] [id number] [place] [address]- 1552 Sep, [facility] [place] [facility] [address] [id number] [place] [address]- 9605 Sep, [facility] [place] [facility] [address] [id number] [place] [address]- 2386 Sep, [facility] [place] [facility] [address] [id number] [place] [address]- 3584 Sep, [facility] [place] [facility] [address] [id number] [place] [address]- 3594 Sep, [facility] [place] [facility] [address] [id number] [place] [address]- 0553 Sep, [facility] [place] [facility] [address] [id number] [place] [address]- 9757 30 Aug, 2014 [facility] [place] [facility] [address] [id number] [place] [address] 30 Aug, 2014 [facility] [place] [facility] [address] [id number] [place] [address] 30 Aug, 2014 [facility] [place] [facility] [address] [id number] [place] [address] 30 Aug, 2014 [facility] [place] [facility] [address] [id number], [place] [address] 30 Aug, 2014 [facility] [place] [facility] [address] [id number] [place] [address] 30 Aug, 2014 [facility] [place] [facility] [address] [id number] [place] [address] Aug, [facility] [place] [facility] [address] [id number] [place] [address] 24 Aug, 2014 [facility] [place] [facility] [address] [id number] [place] [address] Aug, [facility] [place] [facility] [address] [id number] [place] [address] Aug, [facility] [place] [facility] [address] [id number] [place] [address] Aug, [facility] [place] [facility] [address] [id number] [place] [address] Aug, [facility] [place] [facility] [address] [id number] [place] [address] Aug, [facility] [place] [facility] [address] [id number] [place] [address] Aug, [facility] [place] [facility] [address] [id number] [place] [address] Aug, 2013 [facility] [place] [facility] [address] [id number] [place] [address] Aug, 2013 [facility] [place] [facility] [address] [id number] [place] [address] Aug, [facility] [place] [facility] [address] [id number] [place] [address] Aug, [facility] [place] [facility] [address] [id number] [place] [address] 30 Jul, 2013 [facility] [place] [facility] [address] [id number] [place] [address] 30 Sep, 2013 [facility] [place] [facility] [address] [id number], [place] [address] 24 Sep, 2013 [facility] [place] [facility] [address] [id number] [place] [address] 24 Jul, 2013 [facility] [place] [facility] [address] [id number], [place] [address] 23 Jul, 2013 [facility] [place] [facility] [address] [id number], [place] [address] 23 Jul, 2013 [facility] [place] [facility] [address] [id number] [address] 15 Jul, 2014 [facility] [id number], [place] [address] Jul, [facility] [id number], [place] [address] Jul, [facility] [facility] [id number] [address] Jul, [facility] [id number] [place] [address] Jul, [facility] [id number], [place] [address] Jul, [facility] [id number] [place] [address] Jul, [facility] [id number], [place] [address] Jul, IMMUNIZATIONS No Known Immunizations SOCIAL HISTORY Never Assessed REASON FOR VISIT Medication refill request PLAN OF CARE VITAL SIGNS MEDICATIONS Medication Instructions Dosage Frequency Start Date End Date Duration Status Omeprazole 20 mg Orally Once a day TAKE ONE CAPSULE BY MOUTH ONCE DAILY 24h 30 days Active RESULTS No Results PROCEDURES No Known procedures INSTRUCTIONS MEDICATIONS ADMINISTERED No Known Medications MEDICAL (GENERAL) HISTORY Type Description Date Medical History hearing loss Medical History 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 Medical History acute renal failure Medical History hyperlipidemia Medical History type II diabetes Medical History Arthritis Medical History degenerative disease lumbosacral spine Medical History chronic pain r/t DDD Medical History fibromyalgia Medical History [place]-stent to LAD Surgical History cholecystectomy 1983 Surgical [...] Milagros- Influenza illness, hyperglycemia 2017 Hospitalization History [facility]- High BS (Pt left AMA) 01/05/2018 Hospitalization History [facility]- DKA and UTI. Discharged 01/14/2018 Hospitalization History [facility]- Nausea and Vomiting, cannot urinate 01/18/2018
--- OUTSIDE RECORDS SUMMARY | 2018-06-01 10:08 | XMS REPORT ---
Author Author JOSSY BARRETT [facility] Address [address] [place] [address] Care Team Providers Care Cafe Aide Name Role Phone JOSSY BARRETT Unavailable PROBLEMS Type Condition ICD9-CM Code [id number] Code Onset Dates Condition Status SNOMED Code Problem Tobacco abuse counseling Z71.6 Active 485577242 Problem DM neuro manif type II E11.49 Active 62319040 Problem Chronic pain syndrome G89.4 Active 803923447 Problem Other obesity due to excess calories E66.09 Active 532741742 Problem Body mass index (BMI) of 33.0-33.9 in adult Z68.33 Active 498132092 Problem Seasonal allergic rhinitis due to pollen J30.1 Active 23057397 Problem Dental caries K02.9 Active 86222203 Problem Arthritis M19.90 Active 9485710 Problem Primary insomnia F51.01 Active 2317077 Problem Hyperlipidemia E78.5 Active 22638248 Problem Degenerative disc disease, lumbar M51.36 Active 43054904 Problem Alterations of sensations R20.9 Active 624543011 Problem care home 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 Active 271373444 Problem 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 I10 Active 51875134 Problem Fibromyalgia M79.7 Active 45083663 Problem CAD (coronary artery disease) I25.10 Active 77181535 Problem GERD (gastroesophageal reflux disease) K21.9 Active 883567703 Problem Tobacco abuse Z72.0 Active 00248799 ALLERGIES Substance Reaction Event Type Date Status Zofran Unknown Drug Allergy Aug, Active Reglan restless leg; anything in reglan family Drug Allergy Aug, Active Toradol Unknown Drug Allergy Aug, Active LATEX Unknown Non Drug Allergy Aug, Active ENCOUNTERS Encounter Location Date Diagnosis [facility] [address] [facility] [id number] [address] Apr, [facility] [address] [place] [id number] [place] [address] 99946- 5128 March, 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 I10 ; DM neuro manif type II E11.49 and GERD (gastroesophageal reflux disease) K21.9 [place] [address] [place] [id number] [place] [address] 30957- 8936 March, DM neuro manif type II E11.49 and GERD (gastroesophageal reflux disease) K21.9 [place] [address] 99789- 4691 03 Mar, 2018 [place] [address] 30954- 5763 Feb, Tobacco abuse Z72.[address] 49985- 7155 Feb, Tobacco abuse Z72.0 [place] [address] 64081- 0034 06 Feb, 2018 Hypokalemia E87.6 [place] [address] 11865- 1043 Feb, Hyperlipidemia E78.5 ; 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 I10 ; DM neuro manif type II E11.49 ; Fibromyalgia M79.7 ; Acute non-recurrent frontal sinusitis J01.10 ; Other obesity due to excess calories E66.09 and Body mass index (BMI) of 33.0-33.9 in adult Z68.[address] 28632- 7439 05 Jan, 2018 Dysuria R30.0 [place] [address] [place] [id number] [place] [address] 49658- 5543 Jan, Dysuria R30.[address] 71035- 3774 02 Jan, 2018 Acute cystitis with hematuria N30.01 ; DM neuro manif type II E11.49 ; 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 ; 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 I10 and Hospital discharge follow-up Z09 [address] [place] [address] 27 Dec, 2017 Chest pain, unspecified type R07.9 ; Dehydration E86.0 and Anuria R34 [place] [address] 08084- 1374 Dec, [place] [address] 82245- 8866 Dec, Hyperglycemia R73.9 ; Dehydration E86.0 and Acute cystitis with hematuria N30.01 [facility] [place] [address] 49112 -4123 Dec, [facility] [place] [address] 42500 -9645 Dec, [facility] [place] [address] 51752 -6078 Dec, [facility] [place] [address] [address] Dec, Dysuria R30.0 ; Acute cystitis with hematuria N30.01 and Weakness R53.1 [place] [address] 38333- 5152 Dec, [place] [address] 21082- 0639 Nov, [place] [address] 93549- 0765 Nov, [place] [address] 48704- 5085 Nov, 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 I10 ; DM neuro manif type II E11.49 ; 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 ; Tobacco abuse Z72.0 ; Hyperlipidemia E78.5 ; Non-adherence to medical treatment Z91.19 ; GERD (gastroesophageal reflux disease) K21.9 ; Degenerative disc disease, lumbar M51.36 ; Fibromyalgia M79.7 ; Chronic pain syndrome G89.4 ; Dental caries K02.9 and Seasonal allergic rhinitis due to pollen J30.1 [facility] [address] [place] [id number] [place] [address] 67068- 7411 Nov, Alterations of sensations R20.9 [facility] [address] [place] [id number] [place] [address] 31922- 7507 Sep, DM neuro manif type II E11.49 ; Hyperlipidemia E78.5 ; Degenerative disc disease, lumbar M51.36 and Chronic pain syndrome G89.4 [facility] [address] 14804- 1029 Sep, Arthritis M19.90 [place] [address] 76167- 9826 Sep, Type 2 diabetes mellitus without complication E11.9 ; GERD ( gastroesophageal reflux disease) K21.9 ; Arthritis M19.90 and Chronic pain syndrome G89.4 [facility] [address] 74879- 6957 Sep, [facility] [address] 85359- 1969 Aug, [facility] [address] 77166- 0348 Aug, Type 2 diabetes mellitus without complication E11.9 [facility] [address] [place] [id number] [place] [address] 53057- 8561 Aug, [facility] [address] [place] [id number] [place] [address] 72328- 7717 Aug, [facility] [address] [place] [id number] [place] [address] 64272- 2697 Aug, [facility] [address] 95185- 4449 Jul, [facility] WALK IN [facility] [address] [place] [id number] [place] [address] 33893 -3368 Jul, Acute non-recurrent frontal sinusitis J01.10 [place] [address] [place] [id number] [place] [address] 62766- 5474 20 Jul, 2017 CAD (coronary artery disease) I25.10 and GERD ( gastroesophageal reflux disease) K21.9 [place] [address] [place] [id number] [place] [address] 57314- 2293 14 Jul, 2017 Localized swelling, mass and lump, neck R22.1 [place] [address] 89947- 3457 06 Jul, 2017 [place] [address] [place] [id number] [place] [address] 49012- 3759 15 Jun, 2017 Type 2 diabetes mellitus without complication E11.9 ; Primary insomnia F51.01 ; Alterations of sensations R20.9 ; Hyperlipidemia E78.5 ; GERD (gastroesophageal reflux disease) K21.9 ; 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 I10 ; care home 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 ; Tobacco abuse Z72.0 ; Tobacco abuse counseling Z71.6 and CAD (coronary artery disease) I25.10 [place] [address] [place] [id number] [place] [address] 16476- 3045 May, [place] [address] 27197- 7916 May, Type 2 diabetes mellitus without complication E11.9 [place] [address] [place] [id number] [place] [address] 68629- 1710 May, [place] [address] [place] [id number] [place] [address] 73090- 4731 March, [place] [address] [place] [id number] [place] [address] 79516- 2430 Feb, [facility] [address] 79394 -4190 Jan, Acute suppurative otitis media of left ear with spontaneous rupture of tympanic membrane, recurrence not specified H66.012 [place] [address] [place] [id number] [place] [address] 82278- 9548 Dec, Type 2 diabetes mellitus without complication E11.9 ; Lumbago M54.5 ; Cervicalgia M54.2 ; Hyperlipidemia E78.5 ; GERD ( gastroesophageal reflux disease) K21.9 ; Chronic pain syndrome G89.4 ; Dysuria R30.0 and 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 I10 [place] [address] 54497- 3998 Oct, [place] [address] 14592- 5385 Sep, Diabetic mononeuropathy associated with type 2 diabetes mellitus E11.41 and Coughing R05 [place] [address] 53458- 0816 Sep, Diabetic mononeuropathy associated with type 2 diabetes mellitus E11.41 and Coughing R05 [place] [address] 36990- 5292 Sep, Onychomycosis B35.1 ; Neuritis M79.2 and Type 2 diabetes mellitus without complication E11.9 [place] [address] 92245- 5750 Sep, [address] 39680- 4479 Sep, Cough R05 ; Seasonal allergic rhinitis due to pollen J30.1 and Acute upper respiratory infection, unspecified J06.9 [place] [address] 58314- 8131 Sep, [place] [address] 38124- 9927 Aug, [address] 44735- 9289 13 Jul, 2016 Type 2 diabetes mellitus without complication E11.9 ; Chronic pain G89.29 ; 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 I10 and Acute non-recurrent maxillary sinusitis J01.[address] 04578- 0191 Jul, Chronic pain syndrome G89.4 ; Lumbago M54.5 and Cervicalgia M54.2 [place] [address] [place] [id number] [place] [address] 49584- 4651 Jul, [place] [address] [place] [id number] [place] [address] 61458- 5245 Jul, [place] [address] 93865- 5997 Jun, Onychomycosis B35.1 ; Onychocryptosis L60.0 and DM neuro manif type II E11.[address] 10478- 8251 Jun, Type 2 diabetes mellitus without complication E11.9 ; Pain in unspecified hip M25.559 ; Other chronic pain G89.29 ; Lumbago M54.5 ; Chronic pain G89.29 ; Insomnia, unspecified G47.00 ; GERD (gastroesophageal reflux disease) K21.9 and Dental caries K02.9 [place] [id number] [place] [address] 80650- 1690 Jun, Type 2 diabetes mellitus without complication E11.9 ; Lumbago M54.5 ; Chronic pain G89.29 ; Insomnia, unspecified G47.00 ; GERD ( gastroesophageal reflux disease) K21.9 ; Dental caries K02.9 ; Pain in unspecified hip M25.559 and Other chronic pain G89.29 [place] [address] [place] [id number] [place] [address] 20941- 7938 May, [place] [address] [place] [id number] [place] [address] 22275- 2417 May, Type 2 diabetes mellitus without complication E11.9 ; 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 I10 ; Chronic pain syndrome G89.4 ; Other seasonal allergic rhinitis J30.2 and Insomnia, unspecified G47.00 [place] [id number] [place] [address] 33574- 6759 Apr, [place] [id number] [place] [address] 73506- 8482 09 Apr, 2016 Hypertension I10 and Chronic pain G89.[address] 16717- 3713 March, Onychomycosis B35.1 ; Onychocryptosis L60.0 and Type 2 diabetes mellitus without complication E11.[address] 65376- 1577 March, Type 2 diabetes mellitus without complication E11.9 ; 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 I10 ; Alterations of sensations R20.9 ; Chronic pain syndrome G89.4 ; Tobacco abuse Z72.0 and Tobacco abuse counseling Z71.[address] 43297- 6314 Feb, Cough R05 ; Type 2 diabetes mellitus without complication E11.9 ; Tobacco abuse counseling Z71.6 and Chronic pain G89.[address] 70280- 0114 Feb, [address] 42011- 6836 Feb, Type 2 diabetes mellitus without complication E11.9 ; Lumbago M54.5 ; Cervicalgia M54.2 ; Degenerative disc disease, lumbar M51.36 and Numbness and tingling of both legs 782.0 [facility] [address] [id number] Jan, Dental caries K02.9 and Encounter for dental examination Z01.20 [place] [id number] [place] [address] 89383- 7290 Jan, Type 2 diabetes mellitus without complication E11.[address] 96308- 6974 Jan, Type 2 diabetes mellitus without complication E11.9 ; Numbness and tingling of both legs 782.0 ; Fibromyalgia M79.7 ; Hyperlipidemia E78.5 ; Lumbago M54.5 ; Cervicalgia M54.2 ; Hypertension I10 ; CAD (coronary artery disease) I25.10 ; Tobacco abuse Z72.0 ; Tobacco abuse counseling Z71.6 and GERD (gastroesophageal reflux disease) K21.9 [place] [address] [place] [id number] [place] [address] 12112- 8283 Jan, [address] 91408- 3380 Dec, [facility] [address] [id number] Dec, Dental examination Z01.20 and Dental caries K02.[address] 01402- 8441 Dec, Edema R60.9 ; Type 2 diabetes mellitus without complication E11.9 ; Hypertension I10 and Mouth pain K13.[address] 12943- 8502 Dec, Degenerative disc disease, lumbar M51.[address] 41104- 3448 Dec, [address] 19027- 2368 Nov, Insomnia, unspecified G47.[address] 20079- 4868 Nov, Type 2 diabetes mellitus without complication E11.9 ; Lumbago M54.5 ; Degenerative disc disease, lumbar M51.36 ; Fibromyalgia M79.7 ; Coronary artery disease I25.10 ; Hyperlipidemia E78.5 ; Controlled substance agreement signed Z79.899 ; Dysuria R30.0 ; Insomnia, unspecified G47.00 ; GERD ( gastroesophageal reflux disease) K21.9 ; Hypertension 401.9 and care home 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 31333- 5432 Nov, [place] [address] [place] [id number] [place] [address] 62205- 1849 Oct, Degenerative disc disease, lumbar M51.36 ; Cervicalgia M54.2 ; Insomnia, unspecified G47.00 ; Decreased GFR R94.4 and GERD ( gastroesophageal reflux disease) K21.9 [facility] [address] 33106- 3925 Oct, Lumbago M54.5 [place] [address] 14737- 0461 Oct, Low back pain M54.5 [place] [address] 83847- 4761 Oct, [place] [address] 42075- 4468 Oct, Disorientation R41.0 [place] [address] 58874- 6639 Oct, Type 2 diabetes mellitus without complication E11.9 ; Disorientation R41.0 and Chest pain R07.9 [place] [address] 90443- 8069 Oct, [place] [address] 83104- 2794 Sep, Low back pain M54.5 [place] [address] 66500- 8298 Sep, Insomnia, unspecified G47.00 [place] [address] 26870- 2896 Aug, Degenerative disc disease, lumbar M51.36 ; Type 2 diabetes mellitus without complication E11.9 and Encounter for immunization Z23 [place] [address] 78663- 1152 Aug, [place] [address] 50857- 4466 Aug, [facility] [address] [place] [address] 45340- 6920 Aug, [facility] [address] [place] [id number] [place] [address] 892288- 3045 Jul, [facility] [address] [place] [id number] [place] [address] 36452- 8595 Jun, [facility] [address] 47547- 5621 Jun, Chest pain 786.50 and Lumbago 724.2 [facility] [address] 41390- 8239 Jun, [facility] [address] [place] [id number] [place] [address] 02353- 5624 Jun, [facility] [address] [id number] Jun, Dental examination V72.2 [facility] [address] [place] [id number] [place] [address] 74075- 2518 Jun, [facility] [address] [place] [id number] [place] [address] 08120- 6909 May, Left shoulder pain 719.41 and Numbness and tingling of both legs 782.0 [facility] [address] [place] [id number] [place] [address] 71843- 0728 May, Cough 786.2 ; Numbness and tingling of both legs 782.0 and Acute rhinitis 460 [facility] [address] [place] [id number] [place] [address] 11790- 3907 May, [facility] [address] [place] [id number] [place] [address] 43581- 5012 Apr, [facility] [address] [place] [id number] [place] [address] 16283- 4209 Apr, Bilateral lower extremity edema 782.3 ; Lumbago 724.2 and Insomnia 780.52 [facility] [address] [facility] [id number] [place] [address]- 5798 Apr, [facility] [address] [facility] [id number] [place] [address] 2546 Apr, [facility] [address] [place] [id number] [place] [address]- 1367 March, Seborrheic keratosis 702.19 and Skin lesion of face 709.9 [facility] [address] [id number] [place] [address]- 5656 March, [facility] [address] [facility] [id number] [place] [address]- 1826 March, [facility] [address] [facility] [id number] [place] [address]- 3443 March, [facility] [address] [place] [id number] [place] [address]- 1366 March, [facility] [address] [facility] [id number] [place] [address]- 6591 Feb, [facility] [address] [place] [id number] [place] [address]- 4877 Feb, [facility] [address] [place] [id number] [place] [address]- 4031 Jan, [facility] [address] [place] [id number] [place] [address]- 4564 Jan, [facility] [address] [facility] [id number] [place] [address] 2543 Jan, [facility] [address] [facility] [id number] [place] [address] 2546 Jan, [facility] [address] [facility] [id number] [place] [address]- 2546 Jan, [facility] [address] [place] [id number] [place] [address]- 1992 Jan, [facility] [place] [facility] [address] [id number] [place] [address]- 3293 13 Jan, 2015 [facility] [place] [facility] [address] [id number] [place] [address]- 6486 13 Jan, 2015 [facility] [place] [facility] [address] [id number] [place] [address]- 9361 13 Jan, 2015 [facility] [place] [facility] [address] [id number] [place] [address]- 3396 13 Jan, 2015 [facility] [place] [facility] [address] [id number] [place] [address]- 7333 10 Jan, 2015 [facility] [place] [facility] [address] [id number] [place] [address]- 5293 27 Dec, 2014 [facility] [place] [facility] [address] [id number] [place] [address]- 6077 Dec, [facility] [place] [facility] [address] [id number] [place] [address]- 2207 Dec, [facility] [place] [facility] [address] [id number] [place] [address]- 6092 Dec, [facility] [place] [facility] [address] [id number] [place] [address]- 0966 Dec, [facility] [place] [facility] [address] [id number] [place] [address]- 9198 Dec, [facility] [place] [facility] [address] [id number] [place] [address]- 2276 15 Nov, 2014 [facility] [place] [facility] [address] [id number] [place] [address]- 3653 15 Nov, 2014 [facility] [place] [facility] [address] [id number] [place] [address]- 1442 14 Nov, 2014 [facility] [place] [facility] [address] [id number] [place] [address]- 1298 14 Nov, 2014 [facility] [place] [facility] [address] [id number] [place] [address]- 3512 Nov, [facility] [address] [id number] [place] [address]- 5874 Nov, [facility] [address] [id number] [place] [address]- 6566 Nov, [facility] [address] [id number] [place] [address]- 9389 Nov, [facility] [address] [id number] [place] [address]- 3598 Nov, [facility] [address] [id number] [place] [address]- 4492 Nov, [facility] [address] [id number] [place] [address]- 8096 Nov, [facility] [address] [id number] [place] [address]- 7588 Oct, [facility] [address] [id number] [place] [address]- 3313 Oct, [facility] [address] [id number] [place] [address]- 9464 Oct, [facility] [address] [id number] [place] [address]- 7562 Oct, [facility] [address] [id number] [place] [address]- 8804 Oct, [facility] [address] [id number] [place] [address]- 3987 Oct, [facility] [place] [facility] [address] [id number] [place] [address]- 2924 Oct, [facility] [place] [facility] [address] [id number] [place] [address]- 2716 Oct, [facility] [address] [id number] [place] 4564 Oct, [facility] [place] [facility] [address] [id number] [place] [address]- 0613 Oct, [facility] [place] [facility] [address] [id number] [place] [address]- 3807 Sep, [facility] [place] [facility] [address] [id number] [place] [address]- 0657 Sep, [facility] [place] [facility] [address] [id number] [place] [address]- 2457 Sep, [facility] [place] [facility] [address] [id number] [place] [address]- 2675 Sep, [facility] [place] [facility] [address] [id number] [place] [address]- 4411 Sep, [facility] [place] [facility] [address] [id number] [place] [address]- 0398 Sep, [facility] [place] [facility] [address] [id number] [address]- 9904 Sep, [facility] [place] [facility] [address] [id number] [place] [address]- 1106 Sep, [facility] [place] [facility] [address] [id number] [address]- 7688 Sep, [facility] [place] [facility] [address] [id number] [place] [address]- 2011 Sep, [facility] [place] [facility] [address] [id number] [place] [address]- 4770 Sep, [facility] [place] [facility] [address] [id number] [place] [address]- 2720 Sep, [facility] [place] [facility] [address] [id number] [place] [address]- 1653 Sep, [facility] [place] [facility] [address] [id number] [place] [address]- 4[address] 30 Aug, 2014 [facility] [place] [facility] [address] [id number] [place] [address] Aug, 2013 [facility] [place] [facility] [address] [id number] [place] [address] 30 Aug, 2013 [facility] [place] [facility] [address] [id number] [place] [address] 30 Aug, 2013 [facility] [place] [facility] [address] [id number] [place] [address] 30 Aug, 2013 [facility] [place] [facility] [address] [id number] [place] [address] 30 Aug, 2013 [facility] [place] [facility] [address] [id number] [place] [address] Aug, 2013 [facility] [place] [facility] [address] [id number] [place] [address] Aug, 2013 [facility] [place] [facility] [address] [id number] [place] [address] Aug, 2013 [facility] [place] [facility] [address] [id number] [place] [address] Aug, 2013 [facility] [place] [facility] [address] [id number] [place] [address] Aug, 2013 [facility] [place] [facility] [address] [id number] [place] [address] Aug, 2013 [facility] [place] [facility] [address] [id number] [place] [address] Aug, 2013 [facility] [place] [facility] [address] [id number] [place] [address] Aug, 2013 [facility] [place] [facility] [address] [id number] [place] [address] Aug, 2013 [facility] [place] [facility] [address] [facility] [id number] [place] [address] Aug, 2013 [facility] [place] [facility] [address] [facility] [id number] [place] [address] Aug, 2013 [facility] [place] [facility] [address] [facility] [id number] [place] [address] 03 Aug, 2014 [facility] [address] [facility] [id number] [place] [address] 30 Jul, 2013 [facility] [address] [facility] [id number] [place] [address] 30 Jul, 2013 [facility] [address] [facility] [facility] [id number] [address]46 24 Jul, 2013 [facility] [address] [facility] [id number] [place] [address] 2549 24 Jul, 2013 [facility] [address] [facility] [id number] [place] [address] 2541 23 Jul, 2014 [facility] [address] [facility] [id number] [place] [address] 23 Jul, 2013 [facility] [address] [facility] [id number] [place] [address]40 15 Jul, 2013 [facility] [address] [facility] [id number] [place] [address] 2543 15 Jul, 2014 [facility] [address] [facility] [id number] [place] [address] 2545 15 Jul, 2014 [facility] [address] [facility] [id number] [place] [address] 15 Jul, 2014 [facility] [address] [facility] [id number] [place] [address] 2541 11 Jul, 2014 [facility] [address] [facility] [id number] [place] [address] 2546 11 Jul, 2014 [facility] [address] [facility] [id number] [place] [address] 2546 11 Jul, 2014 [facility] [address] [facility] [id number] [place] [address] 11 Jul, 2014 IMMUNIZATIONS No Known Immunizations SOCIAL HISTORY Never Assessed REASON FOR VISIT ER f/u per dr barrett---Jose Angel PLAN OF CARE Activity Details Follow Up with PCP Reason: VITAL SIGNS Height 60 in 2017-09-08 Weight 184 lbs 2017-09-08 Temperature 99.1 degrees Fahrenheit 2017-09-08 Heart Rate 90 bpm 2017-09-08 Respiratory Rate 20 2017-09-08 BMI 35.93 kg/m2 2017-09-08 Blood pressure systolic 126 mmHg 2017-09-08 Blood pressure diastolic 74 mmHg 2017-09-08 MEDICATIONS Medication Instructions Dosage Frequency Start Date End Date Duration Status Tradjenta 5 MG TAKE ONE TABLET BY MOUTH ONCE DAILY 90 Active Percocet 10-325 MG Orally every 6 hrs 1 tablet as needed 6h Active Norvasc 5 MG TAKE 1 TABLET BY MOUTH ONCE A DAY 90 Active Humalog 100 UNIT/ML Active Aspirin 81 MG Orally Once a day 1 tablet 24h Active Levemir FlexTouch 100 UNIT/ML INJECT 58 UNITS SUBCUTANEOUSLY TWICE DAILY Active Breo Ellipta 100-25 MCG/INH Inhalation Once a day 1 puff 24h Active Lipitor 20 mg Orally Once a day take 1 tablet by Oral route at bedtime 1 time per day 24h Active Omeprazole 20 mg Orally Once a day TAKE ONE CAPSULE BY MOUTH ONCE DAILY 24h 30 days Active Gabapentin 600 MG Orally 3 times a day 1 tablet 8h Active RESULTS Name Result Date Reference Range GLUCOSE FINGERSTICK (IN HOUSE) 2017-09-08 GLU FINGERSTICK 308 PC fasting Lot # [id number] Exp date 02/05/18 PROCEDURES Procedure Date Ordered Result Body Site GLUCOSE BLOOD TEST Sep 08, 2017 [facility] VISIT ESTABLISHED PATIENT Sep 08, 2017 INSTRUCTIONS MEDICATIONS ADMINISTERED No Known Medications MEDICAL (GENERAL) HISTORY Type Description Date Medical History hearing loss Medical History 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 Medical History acute renal failure Medical History hyperlipidemia Medical History type II diabetes Medical History Arthritis Medical History degenerative disease lumbosacral spine Medical History chronic pain r/t DDD Medical History fibromyalgia Medical History LA-stent to LAD Surgical History cholecystectomy 1984 Surgical [...] Influenza illness, hyperglycemia 2017 Hospitalization History ED [facility] (Pt left AMA) 01/05/2018 Hospitalization History [facility], [place], operated by [facility]- DKA and UTI. Discharged 01/14/2018 Hospitalization History [facility]- Nausea and Vomiting, cannot urinate 01/18/2018
--- OUTSIDE RECORDS SUMMARY | 2018-06-01 10:09 | XMS REPORT ---
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 Phone MARCELINO BURKS Unavailable PROBLEMS Type Condition ICD9-CM Code TCF79-ZG Code Onset Dates Condition Status SNOMED Code Problem Dental caries K02.9 Active 99778758 Problem Primary insomnia F51.01 Active 0325720 Problem Seasonal allergic rhinitis due to pollen J30.1 Active 03446311 Problem Type 2 diabetes mellitus with hyperglycemia E11.65 Active [id number] Problem Hyperlipidemia E78.5 Active 73962299 Problem Cervicalgia M54.2 Active 00277031 Problem Alterations of sensations R20.9 Active 497494590 Problem Other obesity due to excess calories E66.09 Active 097153840 Problem Arthritis M19.90 Active 2658985 Problem Diabetic mononeuropathy associated with type 2 diabetes mellitus E11.41 Active 615085296 Problem Body mass index (BMI) of 33.0-33.9 in adult Z68.33 Active 645842356 Problem GERD (gastroesophageal reflux disease) K21.9 Active 571765974 Problem penitentiary 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 Active 286090472 Problem Degenerative disc disease, lumbar M51.36 Active 44863294 Problem Fibromyalgia M79.7 Active 30393750 Problem Tobacco abuse Z72.0 Active 14151605 Problem Tobacco abuse counseling Z71.6 Active 904506380 Problem 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 I10 Active 96880564 Problem Chronic pain syndrome G89.4 Active 447950405 Problem CAD (coronary artery disease) I25.10 Active 15567088 Problem DM neuro manif type II E11.49 Active 02900354 ALLERGIES No Information ENCOUNTERS Encounter Location Date Diagnosis [facility] 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 ; Nausea alone R11.0 ; 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 I10 ; GERD ( gastroesophageal reflux disease) K21.9 ; CAD (coronary artery disease) I25.10 and Diabetic mononeuropathy associated with type 2 diabetes mellitus E11.41 [place] [address] 54621- 2828 Apr, [place] [address] 56307- 6231 March, 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 I10 ; DM neuro manif type II E11.49 and GERD (gastroesophageal reflux disease) K21.9 [place] [address] 03883- 5671 March, DM neuro manif type II E11.49 and GERD (gastroesophageal reflux disease) K21.9 [place] [address] 63701- 9782 March, [place] [address] 57205- 3844 Feb, Tobacco abuse Z72.0 [place] [address] 00760- 2922 Feb, Tobacco abuse Z72.0 [place] [address] 84293- 8295 Feb, Hypokalemia E87.6 [place] [address] 29000- 7008 Feb, Hyperlipidemia E78.5 ; 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 I10 ; DM neuro manif type II E11.49 ; Fibromyalgia M79.7 ; Acute non-recurrent frontal sinusitis J01.10 ; Other obesity due to excess calories E66.09 and Body mass index (BMI) of 33.0-33.9 in adult Z68.33 [place] [address] 66828- 7849 05 Jan, 2018 Dysuria R30.0 [place] [address] 78228- 9757 05 Jan, 2018 Dysuria R30.0 [place] [address] 11855- 4800 02 Jan, 2018 Acute cystitis with hematuria N30.01 ; DM neuro manif type II E11.49 ; 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 ; 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 I10 and Hospital discharge follow-up Z09 [place] [address] 29669- 9487 27 Dec, 2017 Chest pain, unspecified type R07.9 ; Dehydration E86.0 and Anuria R34 [place] [address] 69451- 0532 Dec, [place] [address] 74981- 4640 Dec, Hyperglycemia R73.9 ; Dehydration E86.0 and Acute cystitis with hematuria N30.01 [facility] [address] [place] [address] 70743 -1111 Dec, [facility] [address] [place] [address] 27780 -4867 Dec, [facility] [address] [place] [address] 37488 -8184 Dec, [facility] [address] [place] [address] 84268 -9764 16 Dec, 2017 Dysuria R30.0 ; Acute cystitis with hematuria N30.01 and Weakness R53.[address] 20839- 3691 Dec, [place] [address] [place] [id number] [place] [address] 04213- 2103 Nov, [place] [address] 39109- 6017 Nov, [place] [address] 59609- 7406 Nov, 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 I10 ; DM neuro manif type II E11.49 ; 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 ; Tobacco abuse Z72.0 ; Hyperlipidemia E78.5 ; Non-adherence to medical treatment Z91.19 ; GERD (gastroesophageal reflux disease) K21.9 ; Degenerative disc disease, lumbar M51.36 ; Fibromyalgia M79.7 ; Chronic pain syndrome G89.4 ; Dental caries K02.9 and Seasonal allergic rhinitis due to pollen J30.[address] 64929- 1212 Nov, Alterations of sensations R20.9 [place] [address] 63220- 5397 Sep, DM neuro manif type II E11.49 ; Hyperlipidemia E78.5 ; Degenerative disc disease, lumbar M51.36 and Chronic pain syndrome G89.4 [place] [address] [place] [address] [id number] [place] [address] 67421- 7523 Sep, Arthritis M19.90 [place] [address] 86097- 7643 Sep, Type 2 diabetes mellitus without complication E11.9 ; GERD ( gastroesophageal reflux disease) K21.9 ; Arthritis M19.90 and Chronic pain syndrome G89.4 [place] [address] 14731- 8448 Sep, [place] [address] [id number] [place] [address] 92047- 0113 Aug, [place] [address] 65347- 4572 18 Aug, 2017 Type 2 diabetes mellitus without complication E11.9 [facility] [address] [address] 3[address] 17 Aug, 2017 [facility] [address] [place] [id number] [place] [address] 97422- 1536 16 Aug, 2017 [facility] [id number] [place] [address] 28293- 3047 Aug, [facility] [id number] [place] [address] 99774- 4051 26 Jul, 2017 [facility] [id number] [place] [address] 61379 -8603 22 Jul, 2017 Acute non-recurrent frontal sinusitis J01.10 [place] [address] [address] [id number] [place] [address] 07941- 7409 20 Jul, 2017 CAD (coronary artery disease) I25.10 and GERD ( gastroesophageal reflux disease) K21.9 [place] [address] [address] [id number] [place] [address] 80038- 4504 14 Jul, 2017 Localized swelling, mass and lump, neck R22.1 [place] [address] [address] [id number] [place] [address] 70373- 9872 06 Jul, 2017 [place] [address] [address] [id number] [place] [address] 95682- 2260 Jun, Type 2 diabetes mellitus without complication E11.9 ; Primary insomnia F51.01 ; Alterations of sensations R20.9 ; Hyperlipidemia E78.5 ; GERD (gastroesophageal reflux disease) K21.9 ; 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 I10 ; 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 ; Tobacco abuse Z72.0 ; Tobacco abuse counseling Z71.6 and CAD (coronary artery disease) I25.10 [facility] [id number] [place] [address] 48364- 1672 May, [place] [address] [place] [address] [id number] [place] [address] 67672- 9941 May, Type 2 diabetes mellitus without complication E11.9 [facility] [id number] [place] [address] 25570- 0907 May, [facility] [id number] [place] [address] 84146- 5144 March, [facility] [id number] [place] [address] 76764- 9250 Feb, [facility] [id number] [place] [address] 73580 -3096 Jan, Acute suppurative otitis media of left ear with spontaneous rupture of tympanic membrane, recurrence not specified H66.012 [place] [address] [address] [id number] [place] [address] 26211- 0012 Dec, Type 2 diabetes mellitus without complication E11.9 ; Lumbago M54.5 ; Cervicalgia M54.2 ; Hyperlipidemia E78.5 ; GERD ( gastroesophageal reflux disease) K21.9 ; Chronic pain syndrome G89.4 ; Dysuria R30.0 and 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 I10 [place] [address] [id number] [place] [address] 76287- 1657 Oct, [place] [address] [id number] [place] [address] 97363- 3870 30 Sep, 2016 Diabetic mononeuropathy associated with type 2 diabetes mellitus E11.41 and Coughing R05 [place] [address] [id number] [place] [address] 69764- 7501 Sep, Diabetic mononeuropathy associated with type 2 diabetes mellitus E11.41 and Coughing R05 [facility] [id number] [place] [address] 67307- 0338 Sep, Onychomycosis B35.1 ; Neuritis M79.2 and Type 2 diabetes mellitus without complication E11.9 [facility] [id number] [place] [address] 14065- 1114 Sep, [facility] [id number] [place] [address] 42471- 1457 Sep, Cough R05 ; Seasonal allergic rhinitis due to pollen J30.1 and Acute upper respiratory infection, unspecified J06.9 [place] [address] [place] [address] [id number] [place] [address] 29229- 3561 Sep, [place] [address] 22947- 4118 Aug, [place] [address] 08508- 4777 Jul, Type 2 diabetes mellitus without complication E11.9 ; Chronic pain G89.29 ; 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 I10 and Acute non-recurrent maxillary sinusitis J01.00 [place] [address] 09255- 8789 Jul, Chronic pain syndrome G89.4 ; Lumbago M54.5 and Cervicalgia M54.2 [place] [address] 55484- 4206 Jul, [place] [address] 52182- 8031 Jul, [place] [address] 56728- 0948 Jun, Onychomycosis B35.1 ; Onychocryptosis L60.0 and DM neuro manif type II E11.49 [place] [id number] [place] [address] 10831- 6799 Jun, Type 2 diabetes mellitus without complication E11.9 ; Pain in unspecified hip M25.559 ; Other chronic pain G89.29 ; Lumbago M54.5 ; Chronic pain G89.29 ; Insomnia, unspecified G47.00 ; GERD (gastroesophageal reflux disease) K21.9 and Dental caries K02.9 [place] [id number] [place] [address] 88882- 4810 Jun, Type 2 diabetes mellitus without complication E11.9 ; Lumbago M54.5 ; Chronic pain G89.29 ; Insomnia, unspecified G47.00 ; GERD ( gastroesophageal reflux disease) K21.9 ; Dental caries K02.9 ; Pain in unspecified hip M25.559 and Other chronic pain G89.29 [place] [address] 08775- 2212 May, [place] [address] 93115- 4534 May, Type 2 diabetes mellitus without complication E11.9 ; 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 I10 ; Chronic pain syndrome G89.4 ; Other seasonal allergic rhinitis J30.2 and Insomnia, unspecified G47.00 [place] [address] 80312- 6364 Apr, [address] 28700- 7631 Apr, Hypertension I10 and Chronic pain G89.[address] 92188- 1990 March, Onychomycosis B35.1 ; Onychocryptosis L60.0 and Type 2 diabetes mellitus without complication E11.9 [place] [address] 79888- 6824 March, Type 2 diabetes mellitus without complication E11.9 ; 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 I10 ; Alterations of sensations R20.9 ; Chronic pain syndrome G89.4 ; Tobacco abuse Z72.0 and Tobacco abuse counseling Z71.[address] 61640- 8158 Feb, Cough R05 ; Tobacco abuse counseling Z71.6 ; Chronic pain G89.29 and Type 2 diabetes mellitus without complication E11.9 [place] [address] 64292- 2362 Feb, [place] [address] 91987- 0260 Feb, Type 2 diabetes mellitus without complication E11.9 ; Lumbago M54.5 ; Cervicalgia M54.2 ; Degenerative disc disease, lumbar M51.36 and Numbness and tingling of both legs 782.0 [facility] [id number] [place] [address] [id number] Jan, Dental caries K02.9 and Encounter for dental examination Z01.[address] 79227- 3062 Jan, Type 2 diabetes mellitus without complication E11.9 [place] [address] 52637- 8091 Jan, Type 2 diabetes mellitus without complication E11.9 ; Numbness and tingling of both legs 782.0 ; Fibromyalgia M79.7 ; Hyperlipidemia E78.5 ; Lumbago M54.5 ; Cervicalgia M54.2 ; Hypertension I10 ; CAD (coronary artery disease) I25.10 ; Tobacco abuse Z72.0 ; Tobacco abuse counseling Z71.6 and GERD (gastroesophageal reflux disease) K21.[address] 92856- 8409 Jan, [address] 09500- 8642 Dec, [facility] [id number] [place] [address] [id number] Dec, Dental examination Z01.20 and Dental caries K02.[address] 51825- 9076 Dec, Edema R60.9 ; Type 2 diabetes mellitus without complication E11.9 ; Hypertension I10 and Mouth pain K13.[address] 76068- 5964 Dec, Degenerative disc disease, lumbar M51.[address] 82773- 1381 Dec, [address] [place] [address]- 4328 Nov, Insomnia, unspecified G47.00 [place] [address] 85225- 1570 Nov, Type 2 diabetes mellitus without complication E11.9 ; Lumbago M54.5 ; Degenerative disc disease, lumbar M51.36 ; Fibromyalgia M79.7 ; Coronary artery disease I25.10 ; Hyperlipidemia E78.5 ; Controlled substance agreement signed Z79.899 ; Dysuria R30.0 ; Insomnia, unspecified G47.00 ; GERD ( gastroesophageal reflux disease) K21.9 ; Hypertension 401.9 and 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 [place] [address] 97327- 1451 Nov, [place] [address] 11416- 5158 Oct, Degenerative disc disease, lumbar M51.36 ; Cervicalgia M54.2 ; Insomnia, unspecified G47.00 ; Decreased GFR R94.4 and GERD ( gastroesophageal reflux disease) K21.9 [place] [address] 73922- 3637 Oct, Lumbago M54.5 [place] [address] 24334- 4196 Oct, Low back pain M54.5 [place] [address] 75495- 4184 Oct, [place] [address] 40472- 1112 Oct, Disorientation R41.0 [place] [address] 79521- 7484 Oct, Type 2 diabetes mellitus without complication E11.9 ; Disorientation R41.0 and Chest pain R07.9 [place] [address] 04332- 9656 Oct, [facility] [id number] [place] [address] 57319- 8854 Sep, Low back pain M54.5 [facility] [id number] [place] [address] 62544- 7037 Sep, Insomnia, unspecified G47.00 [facility] [id number] [place] [address] 75368- 6328 Aug, Degenerative disc disease, lumbar M51.36 ; Type 2 diabetes mellitus without complication E11.9 and Encounter for immunization Z23 [facility] [id number] [place] [address] 78838- 8927 Aug, [facility] [id number] [place] [address] 72011- 6322 Aug, [facility] [id number] [place] [address] 94653- 0420 Aug, [facility] [id number] [place] [address] 25140- 2816 Jul, [facility] [id number] [place] [address] 43223- 4192 Jun, [facility] [id number] [place] [address] 24765- 9734 Jun, Chest pain 786.50 and Lumbago 724.2 [facility] [id number] [place] [address] 38377- 6681 Jun, [facility] [id number] [place] [address] 88568- 0753 Jun, [facility] [id number] [place] [address] [id number] Jun, Dental examination V72.2 [facility] [id number] [place] [address] 26668- 7869 Jun, [facility] [id number] [place] [address] 33417- 0942 May, Left shoulder pain 719.41 and Numbness and tingling of both legs 782.0 [facility] [id number] [place] [address] 90781- 2771 May, Cough 786.2 ; Numbness and tingling of both legs 782.0 and Acute rhinitis 460 [facility] [id number] [place] [address] 76698- 0420 May, [facility] [id number] [place] [address] 17455- 7419 Apr, [facility] [id number] [place] [address] 64623- 2582 Apr, Bilateral lower extremity edema 782.3 ; Lumbago 724.2 and Insomnia 780.52 [facility] [id number] [place] [address] 57971- 8455 Apr, [facility] [id number] [place] [address] 40926- 9058 Apr, [facility] [id number] [place] [address] 14520- 3540 March, Seborrheic keratosis 702.19 and Skin lesion of face 709.9 [facility] [id number] [place] [address] 47867- 3873 March, [facility] [id number] [place] [address] 71395- 9887 March, [facility] [id number] [place] [address] 75272- 8945 March, [facility] [id number] [place] [address] 355610- 3528 March, [facility] [id number] [place] [address] 88831- 7835 Feb, [facility] [id number] [place] [address] 75218- 9781 Feb, [facility] [place] [facility] [address] [id number] [place] [address]- 0768 25 Jan, 2015 [facility] [place] [facility] [address] [id number] [place] [address]- 9317 25 Jan, 2015 [facility] [place] [facility] [address] [id number] [place] [address]- 8180 16 Jan, 2015 [facility] [place] [facility] [address] [id number] [place] [address]- 1609 16 Jan, 2015 [facility] [place] [facility] [address] [id number] [place] [address]- 3613 16 Jan, 2015 [facility] [place] [facility] [address] [id number] [place] [address]- 4263 16 Jan, 2015 [facility] [place] [facility] [address] [id number] [place] [address]- 0947 Jan, [facility] [place] [facility] [address] [id number] [place] [address]- 6104 13 Jan, 2015 [facility] [place] [facility] [address] [id number] [place] [address]- 6300 Jan, [facility] [place] [facility] [address] [id number] [place] [address]- 8268 Jan, [facility] [place] [facility] [address] [id number] [place] [address]- 2296 Jan, [facility] [place] [facility] [address] [id number] [address]- 7528 Dec, [facility] [place] [facility] [address] [id number] [place] [address]- 1924 Dec, [facility] [place] [facility] [address] [id number] [place] [address]- 5374 Dec, [facility] [place] [facility] [address] [id number] [place] [address]- 5144 Dec, [facility] [place] [facility] [address] [id number] [place] [address]- 6315 12 Dec, 2014 [facility] [address] [id number] [place] [address]- 0468 Dec, [facility] [address] [id number] [place] [address]- 6092 15 Nov, 2014 [facility] [address] [id number] [place] [address]- 4499 15 Nov, 2014 [facility] [address] [id number] [place] [address]- 1775 Nov, [facility] [address] [id number] [place] [address]- 0872 Nov, [facility] [address] [id number] [place] [address]- 8284 Nov, [facility] [address] [id number] [place] [address]- 1213 Nov, [facility] [address] [id number] [place] [address]- 1516 Nov, [facility] [address] [id number] [place] [address]- 4808 Nov, [facility] [address] [id number] [place] [address]- 6901 Nov, [facility] [address] [id number] [place] [address]- 0407 Nov, [facility] [address] [id number] [place] [address]- 8298 Nov, [facility] [place] [facility] [address] [id number] [place] [address]- 0126 Oct, [facility] [place] [facility] [address] [id number] [place] [address]- 6466 Oct, [facility] [address] [id number] [place] 6155 Oct, [facility] [place] [facility] [address] [id number] [place] [address]- 7160 Oct, [facility] [place] [facility] [address] [id number] [place] [address]- 4301 Oct, [facility] [place] [facility] [address] [id number] [place] [address]- 5526 Oct, [facility] [place] [facility] [address] [id number] [place] [address]- 5782 Oct, [facility] [place] [facility] [address] [id number] [place] [address]- 7150 Oct, [facility] [place] [facility] [address] [id number] [place] [address]- 8827 Oct, [facility] [place] [facility] [address] [id number] [place] [address]- 8586 Oct, [facility] [place] [facility] [address] [id number] [place] [address]- 8914 Sep, [facility] [place] [facility] [address] [id number] [place] [address]- 5863 Sep, [facility] [place] [facility] [address] [id number], [place] [address] Sep, [facility] [place] [facility] [address] [id number], [place] [address] Sep, [facility] [place] [facility] [address] [id number], [place] [address] Sep, [facility] [place] [facility] [address] [id number], [place] [address] Sep, [facility] [place] [facility] [address] [id number][place] [address] Sep, [facility] [place] [facility] [address] [id number], [place] [address] Sep, [facility] [place] [facility] [address] [id number], [place] [address] Sep, [facility] [place] [facility] [address] [id number] [place] [address] 17 Sep, 2014 [facility] [place] [facility] [address] [id number] [place] [address] Sep, [facility] [place] [facility] [address] [id number] [place] [address] Sep, [facility] [place] [facility] [address] [id number] [place] [address] Sep, [facility] [place] [facility] [address] [id number] [place] [address] Aug, [facility] [place] [facility] [address] [id number] [place] [address] Aug, [facility] [place] [facility] [address] [id number] [place] [address] Aug, [facility] [place] [facility] [address] [id number] [place] [address] 30 Aug, 2014 [facility] [place] [facility] [address] [id number] [place] [address] 30 Aug, 2014 [facility] [place] [facility] [address] [facility] [id number] [place] [address] 30 Aug, 2014 [facility] [place] [facility] [address] [id number] [place] [address] Aug, [facility] [place] [facility] [address] [id number][place] [address] Aug, [facility] [place] [facility] [address] [id number] [place] [address] Aug, [facility] [place] [facility] [address] [facility] [id number], [place] [address] Aug, [facility] [place] [facility] [address] [facility] [id number], [place] [address] Aug, [facility] [place] [facility] [address] [id number] [place] [address] Aug, 2013 [facility] [place] [facility] [address] [id number] [place] [address] Aug, [facility] [place] [facility] [address] [id number] [place] [address] Aug, 2013 [facility] [place] [facility] [address] [id number] [place] [address] Aug, 2013 [facility] [place] [facility] [address] [id number] [place] [address] Aug, [facility] [place] [facility] [address] [id number] [place] [address] Aug, [facility] [place] [facility] [address] [id number] [place] [address] Aug, [facility] [place] [facility] [address] [id number] [place] [address] 30 Sep, 2013 [facility] [place] [facility] [address] [id number] [place] [address] 30 Sep, 2013 [facility] [place] [facility] [address] [id number] [place] [address] 24 Sep, 2013 [facility] [place] [facility] [address] [id number] [place] [address] 24 Sep, 2013 [facility] [place] [facility] [address] [id number] [place] [address] 23 Sep, 2013 [facility] [place] [facility] [address] [id number] [place] [address] 23 Sep, 2013 [facility] [place] [facility] [address] [id number] [place] [address] 15 Sep, 2013 [facility] [place] [facility] [address] [id number] [place] [address] 15 Sep, 2013 [facility] [place] [facility] [address] [id number] [place] [address] 15 Jul, 2014 [facility] [address] [facility] [id number], [place] [address] 15 Jul, 2014 [facility] [address] [facility] [id number][place] [address] Jul, [facility] [address] [facility] [id number][place] [address] Jul, [facility] [address] [facility] [id number][place] [address] Jul, [facility] [address] [facility] [id number], [place] [address] Jul, IMMUNIZATIONS No Known Immunizations SOCIAL HISTORY Never Assessed REASON FOR VISIT PA for [employer] PLAN OF CARE VITAL SIGNS MEDICATIONS Unknown [...] r/t DDD Medical History fibromyalgia Medical History CO-stent to LAD Surgical History cholecystectomy 1983 Surgical [...] Influenza illness, hyperglycemia 2017 Hospitalization History ED [place]- High BS (Pt left AMA) 01/05/2018 Hospitalization History [facility]- DKA and UTI. Discharged 01/14/2018 Hospitalization History ED [place]- Nausea and Vomiting, cannot urinate 01/18/2018
--- OUTSIDE RECORDS SUMMARY | 2018-06-01 10:09 | XMS REPORT ---
Author Author NIKKY RICKETTS [facility] Address [address] [place] [address] Care Team Providers Care Assistant Art Director Name Role Phone NIKKY RICKETTS Unavailable PROBLEMS Type Condition ICD9-CM Code JWL46-QC Code Onset Dates Condition Status SNOMED Code Problem Tobacco abuse counseling Z71.6 Active 834614602 Problem DM neuro manif type II E11.49 Active 67354770 Problem Chronic pain syndrome G89.4 Active 249212252 Problem Other obesity due to excess calories E66.09 Active 205743087 Problem Body mass index (BMI) of 33.0-33.9 in adult Z68.33 Active 878551278 Problem Seasonal allergic rhinitis due to pollen J30.1 Active 96173831 Problem Dental caries K02.9 Active 84159004 Problem Arthritis M19.90 Active 5869402 Problem Primary insomnia F51.01 Active 8653262 Problem Hyperlipidemia E78.5 Active 54521742 Problem Degenerative disc disease, lumbar M51.36 Active 27494319 Problem Alterations of sensations R20.9 Active 499686641 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 Active 263665729 Problem 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 I10 Active 03844266 Problem Fibromyalgia M79.7 Active 08482006 Problem CAD (coronary artery disease) I25.10 Active 51291837 Problem GERD (gastroesophageal reflux disease) K21.9 Active 753239217 Problem Tobacco abuse Z72.0 Active 47898323 ALLERGIES No Information ENCOUNTERS Encounter Location Date Diagnosis [facility] [place] [facility] [address] [facility] [id number] [address] Feb, Hypokalemia E87.6 [facility] [place] [facility] [address] [id number], [place] [address] Feb, Hyperlipidemia E78.5 ; 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 I10 ; DM neuro manif type II E11.49 ; Fibromyalgia M79.7 ; Acute non-recurrent frontal sinusitis J01.10 ; Other obesity due to excess calories E66.09 and Body mass index (BMI) of 33.0-33.9 in adult Z68.33 [place] [address] [address]647- 4292 05 Jan, 2018 Dysuria R30.0 [place] [address] 18775- 2576 Jan, Dysuria R30.0 [place] [address] 02874- 9041 Jan, Acute cystitis with hematuria N30.01 ; DM neuro manif type II E11.49 ; 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 ; 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 I10 and Hospital discharge follow-up Z09 [place] [address] 58313- 4007 27 Dec, 2017 Chest pain, unspecified type R07.9 ; Dehydration E86.0 and Anuria R34 [place] [address] 91739- 4868 Dec, [place] [address] 63669- 5580 22 Dec, 2017 Hyperglycemia R73.9 ; Dehydration E86.0 and Acute cystitis with hematuria N30.01 [facility] [address] [place] [id number] [place] [address] 69706 -0560 Dec, [facility] [address] 13812 -9418 Dec, [facility] [address] [place] [address] 73976 -3624 Dec, [facility] [place] [address] 23205 -0437 16 Dec, 2017 Dysuria R30.0 ; Acute cystitis with hematuria N30.01 and Weakness R53.1 [place] [address] [id number] [address] 6227 Dec, [place] [id number] [place] [address] 66696- 1151 Nov, [place] [id number] [place] [address] 44918- 6109 Nov, [place] [id number] [place] [address] 52238- 9307 Nov, 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 I10 ; DM neuro manif type II E11.49 ; [facility] 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 ; Tobacco abuse Z72.0 ; Hyperlipidemia E78.5 ; Non-adherence to medical treatment Z91.19 ; GERD (gastroesophageal reflux disease) K21.9 ; Degenerative disc disease, lumbar M51.36 ; Fibromyalgia M79.7 ; Chronic pain syndrome G89.4 ; Dental caries K02.9 and Seasonal allergic rhinitis due to pollen J30.1 [place] [id number] [place] [address] 78697- 4314 Nov, Alterations of sensations R20.9 [place] [id number] [place] [address] 54754- 1557 Sep, DM neuro manif type II E11.49 ; Hyperlipidemia E78.5 ; Degenerative disc disease, lumbar M51.36 and Chronic pain syndrome G89.4 [id number] [address] 7[address] Sep, Arthritis M19.90 [place] [id number] [place] [address] 04460- 6104 Sep, Type 2 diabetes mellitus without complication E11.9 ; GERD ( gastroesophageal reflux disease) K21.9 ; Arthritis M19.90 and Chronic pain syndrome G89.4 [place] [id number] [place] [address] 53024- 9806 Sep, [place] [address] [id number] [place] [address] 12947- 6019 Aug, [place] [id number] [place] [address] 94724- 0513 18 Aug, 2017 Type 2 diabetes mellitus without complication E11.9 [facility] [place] [facility] [id number] [place] [address] 61574- 0731 17 Aug, 2017 [facility] [place] [facility] [address] [address] [id number] [place] [address] 38997- 0160 16 Aug, 2017 [place] [address] 80439- 9873 16 Aug, 2017 [facility] [facility] [address] [place] [address] [id number] [place] [address] 02563- 1007 26 Jul, 2017 [facility] [address] 15817 -5984 22 Jul, 2017 Acute non-recurrent frontal sinusitis J01.10 [place] [address] 00314- 2747 20 Jul, 2017 CAD (coronary artery disease) I25.10 and GERD ( gastroesophageal reflux disease) K21.9 [place] [address] [place] [address] [id number] [place] [address] 27953- 7836 14 Jul, 2017 Localized swelling, mass and lump, neck R22.1 [place] [address] [address] [id number] [place] [address] 78267- 3708 06 Jul, 2017 [place] [address] [id number] [place] [address] 23979- 6042 Jun, Type 2 diabetes mellitus without complication E11.9 ; Primary insomnia F51.01 ; Alterations of sensations R20.9 ; Hyperlipidemia E78.5 ; GERD (gastroesophageal reflux disease) K21.9 ; 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 I10 ; 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 ; Tobacco abuse Z72.0 ; Tobacco abuse counseling Z71.6 and CAD (coronary artery disease) I25.10 [place] [address] [place] [address] [id number] [place] [address] 24368- 7555 May, [place] [address] 93002- 2875 May, Type 2 diabetes mellitus without complication E11.9 [place] [address] [place] [address] [id number] [place] [address] 23330- 1711 May, [facility] [facility] [address] [place] [address] [id number] [place] [address] 97770- 6015 March, [facility] [facility] [address] [place] [address] [id number] [place] [address] 43919- 4035 Feb, [facility] [id number] [place] [address] 17117 -6561 Jan, Acute suppurative otitis media of left ear with spontaneous rupture of tympanic membrane, recurrence not specified H66.012 [place] [address] [place] [address] [id number] [place] [address] 98568- 9450 Dec, Type 2 diabetes mellitus without complication E11.9 ; Lumbago M54.5 ; Cervicalgia M54.2 ; Hyperlipidemia E78.5 ; GERD ( gastroesophageal reflux disease) K21.9 ; Chronic pain syndrome G89.4 ; Dysuria R30.0 and 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 I10 [place] [address] [address] [id number] [place] [address] 74663- 2168 Oct, [place] [address] [place] [address] [id number] [place] [address] 54595- 1057 30 Sep, 2016 Diabetic mononeuropathy associated with type 2 diabetes mellitus E11.41 and Coughing R05 [place] [address] [place] [address] [id number] [place] [address] 62563- 0569 28 Sep, 2016 Diabetic mononeuropathy associated with type 2 diabetes mellitus E11.41 and Coughing R05 [place] [address] [place] [address] [id number] [place] [address] 83898- 7780 Sep, Onychomycosis B35.1 ; Neuritis M79.2 and Type 2 diabetes mellitus without complication E11.9 [place] [address] [place] [address] [id number] [place] [address] 63141- 4013 Sep, [place] [address] [id number] [place] [address] 77764- 2494 03 Sep, 2016 Cough R05 ; Seasonal allergic rhinitis due to pollen J30.1 and Acute upper respiratory infection, unspecified J06.9 [place] [address] [place] [address] [id number] [place] [address] 83292- 2439 Sep, [place] [address] [id number] [place] [address] 79395- 3980 Aug, [place] [address] [place] [address] [id number] [place] [address] 68085- 4403 13 Jul, 2016 Type 2 diabetes mellitus without complication E11.9 ; Chronic pain G89.29 ; 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 I10 and Acute non-recurrent maxillary sinusitis J01.00 [place] [address] [id number] [place] [address] 72028- 2596 Jul, Chronic pain syndrome G89.4 ; Lumbago M54.5 and Cervicalgia M54.2 [place] [address] [place] [address] [id number] [place] [address] 13919- 3248 Jul, [place] [address] [place] [address] [id number] [place] [address] 28542- 5674 Jul, [place] [address] [place] [address] [id number] [place] [address] 87246- 6181 Jun, Onychomycosis B35.1 ; Onychocryptosis L60.0 and DM neuro manif type II E11.49 [place] [address] [place] [address] [id number] [place] [address] 14797- 9475 Jun, Type 2 diabetes mellitus without complication E11.9 ; Pain in unspecified hip M25.559 ; Other chronic pain G89.29 ; Lumbago M54.5 ; Chronic pain G89.29 ; Insomnia, unspecified G47.00 ; GERD (gastroesophageal reflux disease) K21.9 and Dental caries K02.9 [place] [id number] [place] [address] 75190- 0999 Jun, Type 2 diabetes mellitus without complication E11.9 ; Lumbago M54.5 ; Chronic pain G89.29 ; Insomnia, unspecified G47.00 ; GERD ( gastroesophageal reflux disease) K21.9 ; Dental caries K02.9 ; Pain in unspecified hip M25.559 and Other chronic pain G89.29 [place] [address] [place] [id number] [place] [address] 11669- 5114 May, [place] [address] 14363- 0432 May, Type 2 diabetes mellitus without complication E11.9 ; 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 I10 ; Chronic pain syndrome G89.4 ; Other seasonal allergic rhinitis J30.2 and Insomnia, unspecified G47.00 [place] [id number] [place] [address] 72723- 4254 Apr, [address] 62043- 2287 Apr, Hypertension I10 and Chronic pain G89.29 [place] [address] [place] [id number] [place] [address] 49903- 4841 March, Onychomycosis B35.1 ; Onychocryptosis L60.0 and Type 2 diabetes mellitus without complication E11.9 [place] [address] [place] [id number] [place] [address] 25570- 2324 March, Type 2 diabetes mellitus without complication E11.9 ; 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 I10 ; Alterations of sensations R20.9 ; Chronic pain syndrome G89.4 ; Tobacco abuse Z72.0 and Tobacco abuse counseling Z71.6 [place] [id number] [place] [address] 09162- 7141 Feb, Cough R05 ; Type 2 diabetes mellitus without complication E11.9 ; Tobacco abuse counseling Z71.6 and Chronic pain G89.29 [place] [address] [place] [address] [id number] [place] [address] 01587- 2962 Feb, [place] [id number] [place] [address] 99071- 0302 Feb, Type 2 diabetes mellitus without complication E11.9 ; Lumbago M54.5 ; Cervicalgia M54.2 ; Degenerative disc disease, lumbar M51.36 and Numbness and tingling of both legs 782.0 [facility] [address] [id number] [place] [address] [id number] Jan, Dental caries K02.9 and Encounter for dental examination Z01.[address] 86391- 4195 Jan, Type 2 diabetes mellitus without complication E11.[address] 57239- 3444 Jan, Type 2 diabetes mellitus without complication E11.9 ; Numbness and tingling of both legs 782.0 ; Fibromyalgia M79.7 ; Hyperlipidemia E78.5 ; Lumbago M54.5 ; Cervicalgia M54.2 ; Hypertension I10 ; CAD (coronary artery disease) I25.10 ; Tobacco abuse Z72.0 ; Tobacco abuse counseling Z71.6 and GERD (gastroesophageal reflux disease) K21.[address] 42673- 1578 Jan, [address] 17512- 3627 Dec, [facility] [address] [id number] [place] [address] [id number] Dec, Dental examination Z01.20 and Dental caries K02.9 [place] [id number] [place] [address] 62817- 0501 Dec, Edema R60.9 ; Type 2 diabetes mellitus without complication E11.9 ; Hypertension I10 and Mouth pain K13.[address] 34166- 1167 Dec, Degenerative disc disease, lumbar M51.[address] 51664- 4737 Dec, [place] [address] 22971- 9949 Nov, Insomnia, unspecified G47.00 [place] [address] 17087- 9517 Nov, Type 2 diabetes mellitus without complication E11.9 ; Lumbago M54.5 ; Degenerative disc disease, lumbar M51.36 ; Fibromyalgia M79.7 ; Coronary artery disease I25.10 ; Hyperlipidemia E78.5 ; Controlled substance agreement signed Z79.899 ; Dysuria R30.0 ; Insomnia, unspecified G47.00 ; GERD ( gastroesophageal reflux disease) K21.9 ; Hypertension 401.9 and [facility] 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 [place] [address] 58967- 2893 Nov, [address] 39877- 4200 Oct, Degenerative disc disease, lumbar M51.36 ; Cervicalgia M54.2 ; Insomnia, unspecified G47.00 ; Decreased GFR R94.4 and GERD ( gastroesophageal reflux disease) K21.9 [place] [address] 37852- 6518 Oct, Lumbago M54.5 [place] [address] 75483- 9662 Oct, Low back pain M54.5 [place] [address] 98513- 4940 Oct, [place] [address] 51281- 5802 Oct, Disorientation R41.[address] 51902- 7196 Oct, Type 2 diabetes mellitus without complication E11.9 ; Disorientation R41.0 and Chest pain R07.[address] 72624- 4723 Oct, [facility] [facility] [id number] [place] [address] 65704- 6647 Sep, Low back pain M54.5 [facility] [facility] [id number] [place] [address] 32675- 6467 Sep, Insomnia, unspecified G47.00 [facility] [facility] [address] 66442- 0520 Aug, Degenerative disc disease, lumbar M51.36 ; Type 2 diabetes mellitus without complication E11.9 and Encounter for immunization Z23 [facility] [facility] [address] 84990- 2163 Aug, [facility] [facility] [address] [place] [id number] [place] [address] 06265- 1404 Aug, [facility] [facility] [address] 79061- 7100 Aug, [facility] [facility] [address] [id number] [place] [address] 41327- 5459 Jul, [facility] [facility] [address] [id number] [place] [address] 86626- 9205 Jun, [facility] [facility] [address] [id number] [place] [address] 20157- 0692 Jun, Chest pain 786.50 and Lumbago 724.2 [facility] [facility] [address] [place] [id number] [place] [address] 91752- 4867 Jun, [facility] [facility] [id number] [place] [address] 06151- 9255 Jun, [facility] [id number] [place] [address] [id number] Jun, Dental examination V72.2 [facility] [facility] [id number] [place] [address] 69746- 5535 Jun, [facility] [facility] [id number] [place] [address] 62851- 0511 May, Left shoulder pain 719.41 and Numbness and tingling of both legs 782.0 [facility] [facility] [address] 06105- 8572 May, Cough 786.2 ; Numbness and tingling of both legs 782.0 and Acute rhinitis 460 [facility] [facility] [address] 89415- 1743 May, [facility] [facility] [address] 41900- 2559 Apr, [facility] [facility] [address] 22879- 2217 Apr, Bilateral lower extremity edema 782.3 ; Lumbago 724.2 and Insomnia 780.52 [facility] [facility] [address] 44555- 7159 Apr, [facility] [facility] [id number] [place] [address] 82002- 5937 Apr, [facility] [facility] [address] [place] [id number] [place] [address] 28862- 9632 March, Seborrheic keratosis 702.19 and Skin lesion of face 709.9 [facility] [facility] [address] [id number] [place] [address] 89757- 2903 March, [facility] [facility] [address] [id number] [place] [address] 80512- 0950 March, [facility] [facility] [id number] [place] [address] 02013- 0032 March, [facility] [facility] [id number] [place] [address] 52495- 1307 March, [facility] [facility] [id number] [place] [address] 37011- 1245 Feb, [facility] [facility] [address] [place] [address]- 3475 13 Feb, 2014 [facility] [place] [facility] [address] [id number] [place] [address]- 3561 25 Jan, 2015 [facility] [place] [facility] [address] [id number] [place] [address]- 2639 25 Jan, 2015 [facility] [place] [facility] [address] [id number] [place] [address]- 2052 16 Jan, 2014 [facility] [place] [facility] [address] [id number] [place] [address]- 1625 16 Jan, 2015 [facility] [place] [facility] [address] [id number] [place] [address]- 6508 16 Jan, 2015 [facility] [place] [facility] [address] [id number] [place] [address]- 3906 16 Jan, 2014 [facility] [place] [facility] [address] [id number] [place] [address]- 3678 13 Jan, 2014 [facility] [place] [facility] [address] [id number] [place] [address]- 2936 13 Jan, 2015 [facility] [place] [facility] [address] [id number] [place] [address]- 5842 13 Jan, 2014 [facility] [place] [facility] [address] [id number] [place] [address]- 7519 Jan, [facility] [place] [facility] [address] [id number] [place] [address]- 4586 10 Jan, 2015 [facility] [place] [facility] [address] [id number] [place] [address]- 0979 Dec, [facility] [place] [facility] [address] [id number] [place] [address]- 0737 Dec, [facility] [place] [facility] [address] [id number] [place] [address]- 8882 Dec, [facility] [place] [facility] [address] [id number] [place] [address]- 7897 Dec, [facility] [place] [facility] [address] [id number] [place] [address]- 2169 Dec, [facility] [place] [facility] [address] [id number] [place] [address]- 9210 Dec, [facility] [place] [facility] [address] [id number] [place] [address]- 8878 Nov, [facility] [place] [facility] [address] [id number] [place] [address]- 9028 Nov, [facility] [place] [facility] [address] [id number] [place] [address]- 2694 Nov, [facility] [place] [facility] [address] [id number] [place] [address]- 7315 Nov, [facility] [place] [facility] [address] [id number] [place] [address]- 6000 Nov, [facility] [place] [facility] [address] [id number] [place] [address]- 0806 Nov, [facility] [place] [facility] [address] [id number] [place] [address]- 6085 Nov, [facility] [place] [facility] [address] [id number], [place] [address]- 4856 Nov, [facility] [place] [facility] [address] [id number], [place] [address]- 0224 Nov, [facility] [place] [facility] [address] [id number], [place] [address]- 3312 Nov, [facility] [place] [facility] [address] [id number] [place] [address]- 3081 Nov, [facility] [place] [facility] [address] [id number] [place] [address]- 9216 Oct, [facility] [place] [facility] [address] [id number] [place] [address]- 7857 Oct, [facility] [place] [facility] [address] [id number], [place] [address]- 6680 Oct, [facility] [place] [facility] [address] [id number] [place] [address]- 2545 Oct, [facility] [place] [facility] [address] [id number] [place] [address]- 2974 Oct, [facility] [place] [facility] [address] [facility] [id number] [place] [address]- 1803 Oct, [facility] [place] [facility] [address] [id number] [place] [address]- 2789 Oct, [facility] [place] [facility] [address] [facility] [id number] [place] [address]- 5510 Oct, [facility] [place] [facility] [address] [facility] [id number] [place] [address]- 7510 Oct, [facility] [place] [facility] [address] [id number] [place] [address]- 5957 Oct, [facility] [place] [facility] [address] [facility] [id number] [place] [address]- 0349 Sep, [facility] [place] [facility] [address] [facility] [id number] [place] [address]- 0311 Sep, [facility] [place] [facility] [address] [facility] [id number], [place] [address]- 7368 Sep, [facility] [place] [facility] [address] [id number], [place] [address]- 9339 Sep, [facility] [place] [facility] [address] [id number], [place] [address]- 5242 Sep, [facility] [place] [facility] [address] [id number], [place] [address]- 6609 Sep, [facility] [place] [facility] [address] [facility] [id number], [place] [address]- 1396 Sep, [facility] [place] [facility] [address] [facility] [id number], [place] [address] Sep, [facility] [place] [facility] [address] [id number] [place] [address] 17 Sep, 2014 [facility] [place] [facility] [address] [id number] [place] [address] 17 Sep, 2014 [facility] [place] [facility] [address] [id number] [place] [address] Sep, [facility] [place] [facility] [address] [id number] [place] [address] Sep, [facility] [place] [facility] [address] [id number] [place] [address] Sep, [facility] [place] [facility] [address] [id number] [place] [address] 30 Aug, 2014 [facility] [place] [facility] [address] [id number] [place] [address] 30 Aug, 2014 [facility] [place] [facility] [address] [id number] [place] [address] 30 Aug, 2014 [facility] [place] [facility] [address] [id number] [place] [address] 30 Aug, 2014 [facility] [place] [facility] [address] [id number] [place] [address] 30 Aug, 2014 [facility] [place] [facility] [address] [id number] [place] [address]- [address] 30 Aug, 2014 [facility] [place] [facility] [address] [id number] [place] [address] Aug, [facility] [place] [facility] [address] [id number] [place] [address] 24 Aug, 2014 [facility] [place] [facility] [address] [id number] [place] [address]- [address] Aug, [facility] [place] [facility] [address] [id number] [place] [address] Aug, [facility] [place] [facility] [address] [id number] [place] [address] Aug, [facility] [place] [facility] [address] [id number] [place] [address] Aug, [facility] [place] [facility] [address] [id number] [place] [address] Aug, [facility] [place] [facility] [address] [id number] [place] [address] Aug, [facility] [place] [facility] [address] [id number] [place] [address] Aug, [facility] [place] [facility] [address] [id number] [place] [address] Aug, [facility] [place] [facility] [address] [id number] [place] [address]- [address] Aug, [facility] [place] [facility] [address] [id number] [place] [address] Aug, [facility] [place] [facility] [address] [id number] [place] [address] 30 Jul, 2013 [facility] [place] [facility] [address] [id number] [place] [address] 30 Sep, 2013 [facility] [place] [facility] [address] [id number] [place] [address]- [address] 24 Sep, 2013 [facility] [place] [facility] [address] [id number], [place] [address] 24 Sep, 2013 [facility] [place] [facility] [address] [id number], [place] [address] 23 Sep, 2013 [facility] [place] [facility] [address] [id number] [place] [address] 23 Sep, 2013 [facility] [facility] [address] [id number], [place] [address] 15 Jul, 2013 [facility] [address] [id number], [place] [address] 15 Jul, 2013 [facility] [address] [facility] [id number] [place] [address] 15 Jul, 2014 [facility] [address] [facility] [id number], [place] [address] 15 Jul, 2014 [facility] [address] [facility] [id number], [place] [address] 11 Jul, 2014 [facility] [address] [facility] [id number], [place] [address] Jul, [facility] [address] [facility] [id number], [place] [address] 11 Jul, 2014 [facility] [address] [facility] [id number], [place] [address] Jul, IMMUNIZATIONS No Known Immunizations SOCIAL HISTORY Never Assessed REASON FOR VISIT Med Clarification--ASwensonLPN PLAN OF CARE VITAL SIGNS MEDICATIONS Unknown [...] r/t DDD Medical History fibromyalgia Medical History OR-stent to LAD Surgical History cholecystectomy 1983 Surgical [...] Influenza illness, hyperglycemia 2017 Hospitalization History ED [facility]- High BS (Pt left AMA) 01/05/2018 Hospitalization History [facility]- DKA and UTI. Discharged 01/14/2018 Hospitalization History ED [facility]- Nausea and Vomiting, cannot urinate 01/18/2018
--- OUTSIDE RECORDS SUMMARY | 2018-06-01 10:10 | XMS REPORT ---
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 Name Role Phone MARCELINO BURKS Unavailable PROBLEMS Type Condition ICD9-CM Code LVZ48-VQ Code Onset Dates Condition Status SNOMED Code Problem Tobacco abuse counseling Z71.6 Active 498875789 Problem DM neuro manif type II E11.49 Active 03992189 Problem Chronic pain syndrome G89.4 Active 671980968 Problem Other obesity due to excess calories E66.09 Active 749496300 Problem Body mass index (BMI) of 33.0-33.9 in adult Z68.33 Active 251004476 Problem Seasonal allergic rhinitis due to pollen J30.1 Active 52868932 Problem Dental caries K02.9 Active 71752570 Problem Arthritis M19.90 Active 9770157 Problem Primary insomnia F51.01 Active 2083238 Problem Hyperlipidemia E78.5 Active 31390619 Problem Degenerative disc disease, lumbar M51.36 Active 20083406 Problem Alterations of sensations R20.9 Active 259505131 Problem [facility] 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 Active 730120532 Problem 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 I10 Active 21184653 Problem Fibromyalgia M79.7 Active 94888625 Problem CAD (coronary artery disease) I25.10 Active 11908819 Problem GERD (gastroesophageal reflux disease) K21.9 Active 957460094 Problem Tobacco abuse Z72.0 Active 96245274 ALLERGIES Substance Reaction Event Type Date Status Zofran Unknown Drug Allergy Sep, Active Reglan restless leg; anything in reglan family Drug Allergy Sep, Active Toradol Unknown Drug Allergy Sep, Active LATEX Unknown Non Drug Allergy Sep, Active ENCOUNTERS Encounter Location Date Diagnosis [facility] [address] [facility] [id number] [address] Apr, [facility] [address] [place] [id number] [place] [address] 48618- 6261 March, 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 I10 ; DM neuro manif type II E11.49 and GERD (gastroesophageal reflux disease) K21.9 [place] [address] [place] [id number] [place] [address] 65758- 2188 March, DM neuro manif type II E11.49 and GERD (gastroesophageal reflux disease) K21.9 [place] [address] 84881- 7117 03 Mar, 2018 [place] [address] 59741- 9679 Feb, Tobacco abuse Z72.[address] 56331- 0084 Feb, Tobacco abuse Z72.0 [place] [address] 67215- 9169 06 Feb, 2018 Hypokalemia E87.6 [place] [address] 57159- 1508 Feb, Hyperlipidemia E78.5 ; 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 I10 ; DM neuro manif type II E11.49 ; Fibromyalgia M79.7 ; Acute non-recurrent frontal sinusitis J01.10 ; Other obesity due to excess calories E66.09 and Body mass index (BMI) of 33.0-33.9 in adult Z68.33 [place] [id number] [place] [address] 00638- 5967 05 Jan, 2018 Dysuria R30.0 [place] [address] [place] [id number] [place] [address] 52515- 5004 Jan, Dysuria R30.[address] 57935- 9906 02 Jan, 2018 Acute cystitis with hematuria N30.01 ; DM neuro manif type II E11.49 ; 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 ; 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 I10 and Hospital discharge follow-up Z09 [place] [address] 17159- 0413 27 Dec, 2017 Chest pain, unspecified type R07.9 ; Dehydration E86.0 and Anuria R34 [place] [address] 09029- 5178 Dec, [place] [address] 95468- 9735 Dec, Hyperglycemia R73.9 ; Dehydration E86.0 and Acute cystitis with hematuria N30.01 [facility] [place] [address] 25864 -3647 Dec, [facility] [place] [address] 37079 -6905 Dec, [facility] [place] [address] 60600 -6981 Dec, [facility] [place] [address] 42278 -9578 Dec, Dysuria R30.0 ; Acute cystitis with hematuria N30.01 and Weakness R53.1 [place] [address] 69566- 5649 Dec, [place] [address] 38960- 6231 Nov, [place] [address] 82928- 4235 Nov, [place] [address] 54168- 4932 Nov, 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 I10 ; DM neuro manif type II E11.49 ; [facility] 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 ; Tobacco abuse Z72.0 ; Hyperlipidemia E78.5 ; Non-adherence to medical treatment Z91.19 ; GERD (gastroesophageal reflux disease) K21.9 ; Degenerative disc disease, lumbar M51.36 ; Fibromyalgia M79.7 ; Chronic pain syndrome G89.4 ; Dental caries K02.9 and Seasonal allergic rhinitis due to pollen J30.1 [facility] [address] [place] [id number] [place] [address] 68298- 9154 Nov, Alterations of sensations R20.9 [facility] [address] 95400- 9500 Sep, DM neuro manif type II E11.49 ; Hyperlipidemia E78.5 ; Degenerative disc disease, lumbar M51.36 and Chronic pain syndrome G89.4 [facility] [address] 90214- 2294 Sep, Arthritis M19.90 [place] [address] 59202- 7474 Sep, Type 2 diabetes mellitus without complication E11.9 ; GERD ( gastroesophageal reflux disease) K21.9 ; Arthritis M19.90 and Chronic pain syndrome G89.4 [facility] [address] 32904- 8793 Sep, [facility] [address] 72609- 9370 Aug, [facility] [address] 36624- 9085 Aug, Type 2 diabetes mellitus without complication E11.9 [facility] [address] [place] [id number] [place] [address] 98975- 2038 Aug, [facility] [address] [id number] [place] [address] 57560- 7831 Aug, [facility] [address] [place] [id number] [place] [address] 86668- 1010 Aug, [facility] [address] 71228- 3219 Jul, [facility] [address] [id number] [place] [address] 62326 -1911 Jul, Acute non-recurrent frontal sinusitis J01.10 [facility] [id number] [place] [address] 34040- 1621 20 Jul, 2017 CAD (coronary artery disease) I25.10 and GERD ( gastroesophageal reflux disease) K21.9 [place] [address] [place] [id number] [place] [address] 68164- 7669 14 Jul, 2017 Localized swelling, mass and lump, neck R22.1 [place] [address] 21150- 8606 06 Jul, 2017 [place] [address] [place] [id number] [place] [address] 77893- 2540 15 Jun, 2017 Type 2 diabetes mellitus without complication E11.9 ; Primary insomnia F51.01 ; Alterations of sensations R20.9 ; Hyperlipidemia E78.5 ; GERD (gastroesophageal reflux disease) K21.9 ; 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 I10 ; [facility] 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 ; Tobacco abuse Z72.0 ; Tobacco abuse counseling Z71.6 and CAD (coronary artery disease) I25.10 [facility] [address] [place] [id number] [place] [address] 28212- 6260 May, [place] [address] 23911- 6276 May, Type 2 diabetes mellitus without complication E11.9 [place] [address] [place] [id number] [place] [address] 81869- 5106 27 May, 2017 [place] [address] [place] [id number] [place] [address] 98774- 0390 March, [place] [address] [place] [id number] [place] [address] 10777- 5149 Feb, [facility] [address] [place] [address] [id number] [place] [address] 82986 -2274 Jan, Acute suppurative otitis media of left ear with spontaneous rupture of tympanic membrane, recurrence not specified H66.012 [place] [address] [place] [id number] [place] [address] 35255- 3530 Dec, Type 2 diabetes mellitus without complication E11.9 ; Lumbago M54.5 ; Cervicalgia M54.2 ; Hyperlipidemia E78.5 ; GERD ( gastroesophageal reflux disease) K21.9 ; Chronic pain syndrome G89.4 ; Dysuria R30.0 and 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 I10 [place] [address] 97871- 5917 Oct, [place] [address] 21206- 0110 30 Sep, 2016 Diabetic mononeuropathy associated with type 2 diabetes mellitus E11.41 and Coughing R05 [place] [address] 39371- 6018 Sep, Diabetic mononeuropathy associated with type 2 diabetes mellitus E11.41 and Coughing R05 [place] [address] 87085- 3514 Sep, Onychomycosis B35.1 ; Neuritis M79.2 and Type 2 diabetes mellitus without complication E11.9 [place] [address] 10307- 2542 Sep, [address] 68928- 1899 Sep, Cough R05 ; Seasonal allergic rhinitis due to pollen J30.1 and Acute upper respiratory infection, unspecified J06.9 [place] [address] 06389- 2900 02 Sep, 2016 [place] [address] 09305- 5512 Aug, [place] [address] 61993- 6029 13 Jul, 2016 Type 2 diabetes mellitus without complication E11.9 ; Chronic pain G89.29 ; 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 I10 and Acute non-recurrent maxillary sinusitis J01.[address] 51931- 2184 Jul, Chronic pain syndrome G89.4 ; Lumbago M54.5 and Cervicalgia M54.2 [place] [address] [place] [id number] [place] [address] 21559- 5038 Jul, [place] [address] [place] [id number] [place] [address] 27352- 9267 Jul, [place] [address] 26096- 4412 Jun, Onychomycosis B35.1 ; Onychocryptosis L60.0 and DM neuro manif type II E11.[address] 23271- 6656 Jun, Type 2 diabetes mellitus without complication E11.9 ; Pain in unspecified hip M25.559 ; Other chronic pain G89.29 ; Lumbago M54.5 ; Chronic pain G89.29 ; Insomnia, unspecified G47.00 ; GERD (gastroesophageal reflux disease) K21.9 and Dental caries K02.9 [place] [id number] [place] [address] 93430- 5073 Jun, Type 2 diabetes mellitus without complication E11.9 ; Lumbago M54.5 ; Chronic pain G89.29 ; Insomnia, unspecified G47.00 ; GERD ( gastroesophageal reflux disease) K21.9 ; Dental caries K02.9 ; Pain in unspecified hip M25.559 and Other chronic pain G89.29 [place] [address] [place] [id number] [place] [address] 45097- 5356 May, [place] [address] [place] [id number] [place] [address] 69094- 1079 May, Type 2 diabetes mellitus without complication E11.9 ; 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 I10 ; Chronic pain syndrome G89.4 ; Other seasonal allergic rhinitis J30.2 and Insomnia, unspecified G47.00 [place] [id number] [place] [address] 75294- 0297 Apr, [place] [address] [place] [id number] [place] [address] 27071- 7309 09 Apr, 2016 Hypertension I10 and Chronic pain G89.[address] 16565- 3293 March, Onychomycosis B35.1 ; Onychocryptosis L60.0 and Type 2 diabetes mellitus without complication E11.[address] 34190- 2007 March, Type 2 diabetes mellitus without complication E11.9 ; 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 I10 ; Alterations of sensations R20.9 ; Chronic pain syndrome G89.4 ; Tobacco abuse Z72.0 and Tobacco abuse counseling Z71.[address] 66219- 9593 Feb, Cough R05 ; Tobacco abuse counseling Z71.6 ; Chronic pain G89.29 and Type 2 diabetes mellitus without complication E11.9 [place] [id number] [place] [address] 00962- 7203 Feb, [place] [id number] [place] [address] 39831- 2387 Feb, Type 2 diabetes mellitus without complication E11.9 ; Lumbago M54.5 ; Cervicalgia M54.2 ; Degenerative disc disease, lumbar M51.36 and Numbness and tingling of both legs 782.0 [facility] [address] [place] [id number] [place] [address] [id number] 24 Jan, 2016 Dental caries K02.9 and Encounter for dental examination Z01.20 [place] [id number] [place] [address] 69733- 3905 Jan, Type 2 diabetes mellitus without complication E11.[address] 60628- 6262 17 Jan, 2016 Type 2 diabetes mellitus without complication E11.9 ; Numbness and tingling of both legs 782.0 ; Fibromyalgia M79.7 ; Hyperlipidemia E78.5 ; Lumbago M54.5 ; Cervicalgia M54.2 ; Hypertension I10 ; CAD (coronary artery disease) I25.10 ; Tobacco abuse Z72.0 ; Tobacco abuse counseling Z71.6 and GERD (gastroesophageal reflux disease) K21.9 [place] [address] [place] [id number] [place] [address] 69804- 3545 Jan, [address] 03327- 9843 Dec, [facility] [address] [id number] Dec, Dental examination Z01.20 and Dental caries K02.[address] 19310- 7291 Dec, Edema R60.9 ; Type 2 diabetes mellitus without complication E11.9 ; Hypertension I10 and Mouth pain K13.[address] 53140- 6401 Dec, Degenerative disc disease, lumbar M51.[address] 93084- 1913 Dec, [address] 97582- 9826 Nov, Insomnia, unspecified G47.[address] 07694- 2913 Nov, Type 2 diabetes mellitus without complication E11.9 ; Lumbago M54.5 ; Degenerative disc disease, lumbar M51.36 ; Fibromyalgia M79.7 ; Coronary artery disease I25.10 ; Hyperlipidemia E78.5 ; Controlled substance agreement signed Z79.899 ; Dysuria R30.0 ; Insomnia, unspecified G47.00 ; GERD ( gastroesophageal reflux disease) K21.9 ; Hypertension 401.9 and 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 89507- 5245 Nov, [place] [address] 49570- 6510 Oct, Degenerative disc disease, lumbar M51.36 ; Cervicalgia M54.2 ; Insomnia, unspecified G47.00 ; Decreased GFR R94.4 and GERD ( gastroesophageal reflux disease) K21.9 [place] [address] 53869- 5448 Oct, Lumbago M54.5 [place] [address] 63215- 0223 Oct, Low back pain M54.5 [place] [address] 63228- 6822 Oct, [place] [address] 68116- 5663 Oct, Disorientation R41.0 [place] [address] 48313- 8318 Oct, Type 2 diabetes mellitus without complication E11.9 ; Disorientation R41.0 and Chest pain R07.9 [place] [address] 32120- 1863 Oct, [place] [address] 38299- 6994 Sep, Low back pain M54.5 [place] [address] 31947- 5069 Sep, Insomnia, unspecified G47.00 [place] [address] 25196- 6625 Aug, Degenerative disc disease, lumbar M51.36 ; Type 2 diabetes mellitus without complication E11.9 and Encounter for immunization Z23 [place] [address] 88359- 2862 Aug, [place] [address] 98075- 8963 Aug, [facility] [id number] [place] [address] 86542- 4258 Aug, [facility] [address] [place] [id number] [place] [address] 280630- 5676 Jul, [facility] [address] [place] [id number] [place] [address] 61819- 6507 Jun, [facility] [address] [place] [id number] [place] [address] 53079- 2802 Jun, Chest pain 786.50 and Lumbago 724.2 [facility] [address] [place] [id number] [place] [address] 33887- 9760 Jun, [facility] [address] [place] [id number] [place] [address] 73452- 9976 Jun, [facility] [address] [id number] Jun, Dental examination V72.2 [facility] [address] [place] [id number] [place] [address] 03390- 1112 Jun, [facility] [address] [place] [id number] [place] [address] 12920- 1247 May, Left shoulder pain 719.41 and Numbness and tingling of both legs 782.0 [facility] [address] [place] [id number] [place] [address] 29807- 2407 May, Cough 786.2 ; Numbness and tingling of both legs 782.0 and Acute rhinitis 460 [facility] [address] [place] [id number] [place] [address] 05038- 9159 May, [facility] [address] [place] [id number] [place] [address] 66575- 8082 Apr, [facility] [address] [place] [id number] [place] [address] 78411- 9369 Apr, Bilateral lower extremity edema 782.3 ; Lumbago 724.2 and Insomnia 780.52 [facility] [address] [facility] [id number] [place] [address]- 3832 Apr, [facility] [address] [facility] [id number] [place] [address]- 4766 Apr, [facility] [address] [place] [id number] [place] [address]- 7035 March, Seborrheic keratosis 702.19 and Skin lesion of face 709.9 [facility] [address] [facility] [id number] [place] [address]- 1706 March, [facility] [address] [facility] [id number] [place] [address]- 8836 March, [facility] [address] [place] [id number] [place] [address]- 3631 March, [facility] [address] [place] [id number] [place] [address]- 1596 March, [facility] [address] [place] [id number] [place] [address]- 4912 Feb, [facility] [address] [place] [id number] [place] [address]- 2213 Feb, [facility] [address] [place] [id number] [place] [address]- 1710 Jan, [facility] [address] [place] [id number] [place] [address]- 3737 Jan, [facility] [address] [facility] [id number] [place] [address] 2543 Jan, [facility] [address] [facility] [id number] [place] [address] 2546 Jan, [facility] [address] [facility] [id number] [place] [address]- 2546 Jan, [facility] [address] [place] [id number] [place] [address]- 6958 16 Jan, 2015 [facility] [place] [facility] [address] [id number] [place] [address]- 1879 13 Jan, 2015 [facility] [place] [facility] [address] [id number] [place] [address]- 9149 13 Jan, 2015 [facility] [place] [facility] [address] [id number] [place] [address]- 0137 13 Jan, 2015 [facility] [place] [facility] [address] [id number] [place] [address]- 0370 13 Jan, 2015 [facility] [place] [facility] [address] [id number] [place] [address]- 8078 10 Jan, 2015 [facility] [place] [facility] [address] [id number] [place] [address]- 6868 27 Dec, 2014 [facility] [place] [facility] [address] [id number] [place] [address]- 1785 Dec, [facility] [place] [facility] [address] [id number] [place] [address]- 5643 Dec, [facility] [place] [facility] [address] [id number] [place] [address]- 7683 26 Dec, 2014 [facility] [place] [facility] [address] [id number] [place] [address]- 4960 12 Dec, 2014 [facility] [place] [facility] [address] [id number] [place] [address]- 5906 12 Dec, 2014 [facility] [place] [facility] [address] [id number] [place] [address]- 8197 15 Nov, 2014 [facility] [place] [facility] [address] [id number] [place] [address]- 6440 15 Nov, 2014 [facility] [place] [facility] [address] [id number] [place] [address]- 1517 14 Nov, 2014 [facility] [place] [facility] [address] [id number] [place] [address]- 9445 14 Nov, 2014 [facility] [place] [facility] [address] [id number] [place] [address]- 8000 Nov, [facility] [address] [id number] [place] [address]- 3681 Nov, [facility] [address] [id number] [place] [address]- 7816 Nov, [facility] [address] [id number] [place] [address]- 5788 Nov, [facility] [address] [id number] [place] [address]- 5609 Nov, [facility] [address] [id number] [place] [address]- 9736 Nov, [facility] [address] [id number] [place] [address]- 7994 Nov, [facility] [address] [id number] [place] [address]- 1733 Oct, [facility] [address] [id number] [place] [address]- 7648 Oct, [facility] [address] [id number] [place] [address]- 7829 Oct, [facility] [address] [id number] [place] [address]- 0196 Oct, [facility] [address] [id number] [place] [address]- 9390 Oct, [facility] [address] [id number] [place] [address]- 6231 Oct, [facility] [place] [facility] [address] [id number] [place] [address]- 0549 Oct, [facility] [place] [facility] [address] [id number] [place] [address]- 5346 Oct, [facility] [place] [facility] [address] [id number] [place] [address]- 4533 Oct, [facility] [place] [facility] [address] [id number] [place] [address]- 7816 Oct, [facility] [place] [facility] [address] [id number] [place] [address]- 2086 Sep, [facility] [place] [facility] [address] [id number] [place] [address]- 3401 Sep, [facility] [place] [facility] [address] [id number] [place] [address]- 2988 Sep, [facility] [place] [facility] [address] [id number] [place] [address]- 2284 Sep, [facility] [place] [facility] [address] [id number] [place] [address]- 4274 Sep, [facility] [place] [facility] [address] [id number] [place] [address]- 8498 Sep, [facility] [place] [facility] [address] [id number] [place] [address]- 5428 Sep, [facility] [place] [facility] [address] [id number] [place] [address]- 4911 Sep, [facility] [place] [facility] [address] [id number] [place] [address]- 3492 Sep, [facility] [place] [facility] [address] [id number] [place] [address]- 7738 Sep, [facility] [place] [facility] [address] [id number], [place] [address] 13 Sep, 2014 [facility] [place] [facility] [address] [id number] [place] [address] Sep, [facility] [place] [facility] [address] [id number] [place] [address] Sep, [facility] [place] [facility] [address] [id number] [place] [address] 30 Aug, 2014 [facility] [place] [facility] [address] [id number] [place] [address] Aug, 2013 [facility] [place] [facility] [address] [id number] [place] [address] 30 Aug, 2013 [facility] [place] [facility] [address] [id number] [place] [address] 30 Aug, 2013 [facility] [place] [facility] [address] [id number] [place] [address] 30 Aug, 2013 [facility] [place] [facility] [address] [id number] [place] [address] 30 Aug, 2013 [facility] [place] [facility] [address] [id number] [place] [address] Aug, 2013 [facility] [place] [facility] [address] [id number] [place] [address] Aug, 2013 [facility] [place] [facility] [address] [id number] [place] [address] Aug, 2013 [facility] [place] [facility] [address] [id number] [place] [address] Aug, 2013 [facility] [place] [facility] [address] [id number] [place] [address] Aug, 2013 [facility] [place] [facility] [address] [id number] [place] [address] Aug, 2013 [facility] [place] [facility] [address] [id number] [place] [address] Aug, 2013 [facility] [place] [facility] [address] [id number], [place] [address] Aug, 2013 [facility] [place] [facility] [address] [id number], [place] [address] Aug, 2013 [facility] [place] [facility] [address] [id number], [place] [address] Aug, 2013 [facility] [place] [facility] [address] [id number], [place] [address] Aug, 2013 [facility] [place] [facility] [address] [id number], [place] [address] 03 Aug, 2014 [facility] [address] [id number], [place] [address] 30 Jul, 2013 [facility] [address] [facility] [id number], [place] [address] 30 Jul, 2013 [facility] [address] [id number] [place] [address] 24 Jul, 2013 [facility] [address] [id number], [place] [address] 2543 24 Jul, 2013 [facility] [address] [id number] [place] [address] 2547 23 Jul, 2014 [facility] [address] [facility] [id number], [place] [address] 23 Jul, 2013 [facility] [address] [facility] [id number], [place] [address] 2543 15 Jul, 2014 [facility] [address] [facility] [id number], [place] [address] 2542 15 Jul, 2014 [facility] [address] [facility] [id number], [place] [address] 2548 15 Jul, 2014 [facility] [address] [facility] [id number], [place] [address] 2547 15 Jul, 2014 [facility] [address] [facility] [id number], [place] [address] 254 11 Jul, 2014 [facility] [address] [facility] [id number], [place] [address] 2546 11 Jul, 2014 [facility] [address] [facility] [id number], [place] [address] 2546 11 Jul, 2014 [facility] [address] [facility] [id number], [place] [address] 11 Jul, 2014 IMMUNIZATIONS No Known Immunizations SOCIAL HISTORY Never Assessed REASON FOR VISIT DM----DBennettRN, low back pain radiating down right leg started on Wednesday, seen at ER yesterday, was concerned for DVT, but was told she had a bulging disc, no scans were done PLAN OF CARE Activity Details Follow Up 3 Months Reason:CHM/DM VITAL SIGNS Height 60 in 2017-10-21 Weight 180 lbs 2017-10-21 Temperature 98.4 degrees Fahrenheit 2017-10-21 Heart Rate 60 bpm 2017-10-21 Respiratory Rate 20 2017-10-21 BMI 35.15 kg/m2 2017-10-21 Blood pressure systolic 120 mmHg 2017-10-21 Blood pressure diastolic 64 mmHg 2017-10-21 MEDICATIONS Medication Instructions Dosage Frequency Start Date End Date Duration Status Norvasc 5 MG TAKE 1 TABLET BY MOUTH ONCE A DAY 90 Active Levemir FlexTouch 100 UNIT/ML Subcutaneous 2 times a day INJECT 58 UNITS SUBCUTANEOUSLY TWICE DAILY 12h 12 months Active Aspirin 81 MG Orally Once a day 1 tablet 24h Active Lipitor 20 mg Orally Once a day take 1 tablet by Oral route at bedtime 1 time per day 24h Active Amoxicillin Not-Taking Tramadol HCl 50 mg Orally 3-4 times per day 2 tablets as needed Not-Taking Trazodone HCl 50 mg Orally Once a day 1 tablet at bedtime as needed 24h 30 Not-Taking Diclofenac Sodium 75 MG Orally Twice a day 1 tablet with food or milk 12h Sep, 30 day(s) Active Breo Ellipta 100-25 MCG/INH Inhalation Once a day 1 puff 24h Not- Taking Omeprazole 20 mg Orally Once a day TAKE ONE CAPSULE BY MOUTH ONCE DAILY 24h 90 days Active Humalog 100 UNIT/ML Active Metformin HCl 500 MG TAKE ONE TABLET BY MOUTH WITH FOOD TWICE DAILY Not-Taking Percocet 10-325 MG Orally every 6 hrs 1 tablet as needed 6h Active Tradjenta 5 MG TAKE ONE TABLET BY MOUTH ONCE DAILY 90 Active Cetirizine HCl 10 mg Orally Once a day 1 tablet 24h Sep, Not -Taking Gabapentin 600 MG Orally 3 times a day 1 tablet 8h Active Lunesta 2 MG Orally Once a day 1 tablet immediately before bedtime 24h Jun, 30 days Not-Taking RESULTS Name Result Date Reference Range A1C (IN HOUSE) 2017-10-21 A1C IN HOUSE 9.7 4.3 - 5.6 % Previous A1c 9.9 Lot [id number] Exp date 07/10 MICROALBUMIN, URINE (IN HOUSE) 2017-10-21 MICROALBUMIN abnormal Lot # [id number] Exp date 08/21/18 Clarity clear Color yellow ALB 150 CRE 200 A:C (IN HOUSE) 30-300 Control Control Lot # Exp date PROCEDURES Procedure Date Ordered Result Body Site GLYCATED HEMOGLOBIN TEST Oct 21, 2017 MICROALBUMIN, SEMIQUANT Oct 21, 2017 [facility] VISIT ESTABLISHED PATIENT Oct 21, 2017 INSTRUCTIONS MEDICATIONS ADMINISTERED No Known Medications [...] Influenza illness, hyperglycemia 2017 Hospitalization History [facility]- High BS (Pt left AMA) 01/05/2018 Hospitalization History [facility]- DKA and UTI. Discharged 01/14/2018 Hospitalization History [facility]- Nausea and Vomiting, cannot urinate 01/18/2018
--- OUTSIDE RECORDS SUMMARY | 2018-06-01 10:11 | XMS REPORT ---
Author Author BURKSMARCELINO Rene Organization [facility] Address [address] [place] [address] Care Team Providers Care Mail Delivery Supervisor Name Role Phone MARCELINO BURKS Unavailable PROBLEMS Type Condition ICD9-CM Code CXB22-RV Code Onset Dates Condition Status SNOMED Code Problem CAD (coronary artery disease) I25.10 Active 73088106 Problem Tobacco abuse counseling Z71.6 Active 130116965 Problem Tobacco abuse Z72.0 Active 47631384 Problem Arthritis M19.90 Active 6649142 Problem Primary insomnia F51.01 Active 8983474 Problem DM neuro manif type II E11.49 Active 63888318 Problem Chronic pain syndrome G89.4 Active 404415652 Problem Seasonal allergic rhinitis due to pollen J30.1 Active 98696238 Problem Dental caries K02.9 Active 88200876 Problem Alterations of sensations R20.9 Active 006416595 Problem Degenerative disc disease, lumbar M51.36 Active 13507717 Problem GERD (gastroesophageal reflux disease) K21.9 Active 899014295 Problem Fibromyalgia M79.7 Active 31797397 Problem 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 I10 Active 74454095 Problem Hyperlipidemia E78.5 Active 48355192 Problem 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 [id number] [place] [address]885- 7792 Feb, [facility] [address] [id number] [address] Jan, D[address]uria R30.0 [facility] [address] [place] [address] 36316- 1710 Jan, D[address]uria R30.0 [facility] [id number] [place] [address] 38775- 2440 Jan, Acute cystitis with hematuria N30.01 ; DM neuro manif type II E11.49 ; long-term 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 ; 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 I10 and Hospital discharge follow-up Z09 [place] [address] [address]- [address]33 27 Dec, 2017 Chest pain, unspecified type R07.9 ; Dehydration E86.0 and Anuria R34 [address] [address]87- 7779 Dec, [place] [address] 16478- 9241 Dec, Hyperglycemia R73.9 ; Dehydration E86.0 and Acute cystitis with hematuria N30.01 [facility] [place] [address] [address]28 -3904 Dec, [facility] [address] [address] Dec, [facility] [place] [address] 03043 -7020 Dec, [facility] [address] [address] -[address]30 Dec, Dysuria R30.0 ; Acute cystitis with hematuria N30.01 and Weakness R53.[address] 35048- 1310 Dec, [place] [address] [id number] [place] [address] 29169- 2344 Nov, [place] [address] 76128- 9868 Nov, [place] [address] 31813- 3151 Nov, 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 I10 ; DM neuro manif type II E11.49 ; 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 [id number] [place] [address] 01709- 8456 Nov, Alterations of sensations R20.9 [facility] [address] 47374- 1810 Sep, DM neuro manif type II E11.49 ; Hyperlipidemia E78.5 ; Degenerative disc disease, lumbar M51.36 and Chronic pain syndrome G89.4 [place] [address] 46760- 1879 Sep, Arthritis M19.[address] 32345- 1731 Sep, Type 2 diabetes mellitus without complication E11.9 ; GERD ( gastroesophageal reflux disease) K21.9 ; Arthritis M19.90 and Chronic pain syndrome G89.4 [place] [address] 10703- 6608 Sep, [place] [address] 16147- 5544 Aug, [place] [address] 34301- 8302 Aug, Type 2 diabetes mellitus without complication E11.9 [place] [address] 07156- 0873 Aug, [place] [address] 86271- 2298 Aug, [place] [address] 24167- 2595 Aug, [place] [address] 96335- 6594 Jul, [facility] [id number] [place] [address] 55626 -1996 22 Jul, 2017 Acute non-recurrent frontal sinusitis J01.10 [facility] [id number] [place] [address] 88452- 0281 20 Jul, 2017 CAD (coronary artery disease) I25.10 and GERD ( gastroesophageal reflux disease) K21.9 [place] [address] 26373- 0176 14 Jul, 2017 Localized swelling, mass and lump, neck R22.1 [place] [address] 43136- 0286 06 Jul, 2017 [place] [address] 32626- 4389 15 Jun, 2017 Type 2 diabetes mellitus without complication E11.9 ; Primary insomnia F51.01 ; Alterations of sensations R20.9 ; Hyperlipidemia E78.5 ; GERD (gastroesophageal reflux disease) K21.9 ; 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 I10 ; long-term 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 ; Tobacco abuse Z72.0 ; Tobacco abuse counseling Z71.6 and CAD (coronary artery disease) I25.10 [place] [id number] [place] [address] 43592- 6263 May, [place] [id number] [place] [address] 64532- 9524 May, Type 2 diabetes mellitus without complication E11.9 [place] [id number] [place] [address] 01102- 1510 May, [place] [address] 75571- 7527 March, [place] [address] 28375- 9896 Feb, [facility] [id number] [place] [address] 01757 -3512 Jan, Acute suppurative otitis media of left ear with spontaneous rupture of tympanic membrane, recurrence not specified H66.012 [place] [id number] [place] [address] 73992- 6985 17 Dec, 2016 Type 2 diabetes mellitus without complication E11.9 ; Lumbago M54.5 ; Cervicalgia M54.2 ; Hyperlipidemia E78.5 ; GERD ( gastroesophageal reflux disease) K21.9 ; Chronic pain syndrome G89.4 ; Dysuria R30.0 and 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 I10 [place] [address] 09476- 4961 Oct, [place] [address] 24380- 6864 Sep, Diabetic mononeuropathy associated with type 2 diabetes mellitus E11.41 and Coughing R05 [place] [address] 07725- 9896 Sep, Diabetic mononeuropathy associated with type 2 diabetes mellitus E11.41 and Coughing R05 [place] [id number] [place] [address] 68976- 2858 Sep, Onychomycosis B35.1 ; Neuritis M79.2 and Type 2 diabetes mellitus without complication E11.9 [place] [id number] [place] [address] 64155- 5567 Sep, [place] [address] 09143- 9053 Sep, Cough R05 ; Seasonal allergic rhinitis due to pollen J30.1 and Acute upper respiratory infection, unspecified J06.9 [place] [address] 18862- 1372 Sep, [place] [address] 39150- 7036 Aug, [place] [address] 94302- 0410 13 Jul, 2016 Type 2 diabetes mellitus without complication E11.9 ; Chronic pain G89.29 ; 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 I10 and Acute non-recurrent maxillary sinusitis J01.00 [place] [id number] [place] [address] 37938- 9853 Jul, Chronic pain syndrome G89.4 ; Lumbago M54.5 and Cervicalgia M54.2 [place] [id number] [place] [address] 94779- 1733 Jul, [place] [address] 97355- 5762 Jul, [place] [address] 87909- 6797 Jun, Onychomycosis B35.1 ; Onychocryptosis L60.0 and DM neuro manif type II E11.[address] 01129- 2918 Jun, Type 2 diabetes mellitus without complication E11.9 ; Pain in unspecified hip M25.559 ; Other chronic pain G89.29 ; Lumbago M54.5 ; Chronic pain G89.29 ; Insomnia, unspecified G47.00 ; GERD (gastroesophageal reflux disease) K21.9 and Dental caries K02.9 [place] [id number] [place] [address] 29886- 7780 Jun, Type 2 diabetes mellitus without complication E11.9 ; Lumbago M54.5 ; Chronic pain G89.29 ; Insomnia, unspecified G47.00 ; GERD ( gastroesophageal reflux disease) K21.9 ; Dental caries K02.9 ; Pain in unspecified hip M25.559 and Other chronic pain G89.29 [place] [id number] [place] [address] 04535- 1507 May, [place] [id number] [place] [address] 96718- 0487 May, Type 2 diabetes mellitus without complication E11.9 ; 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 I10 ; Chronic pain syndrome G89.4 ; Other seasonal allergic rhinitis J30.2 and Insomnia, unspecified G47.00 [place] [id number] [place] [address] 31134- 3592 Apr, [place] [address] 16277- 8111 Apr, Hypertension I10 and Chronic pain G89.29 [place] [address] 32810- 0271 March, Onychomycosis B35.1 ; Onychocryptosis L60.0 and Type 2 diabetes mellitus without complication E11.9 [place] [address] 65834- 6431 March, Type 2 diabetes mellitus without complication E11.9 ; 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 I10 ; Alterations of sensations R20.9 ; Chronic pain syndrome G89.4 ; Tobacco abuse Z72.0 and Tobacco abuse counseling Z71.[address] 03680- 6941 Feb, Cough R05 ; Tobacco abuse counseling Z71.6 ; Chronic pain G89.29 and Type 2 diabetes mellitus without complication E11.9 [place] [id number] [place] [address] 68504- 5124 Feb, [place] [address] [address] [id number] [place] [address] 96059- 6903 Feb, Type 2 diabetes mellitus without complication E11.9 ; Lumbago M54.5 ; Cervicalgia M54.2 ; Degenerative disc disease, lumbar M51.36 and Numbness and tingling of both legs 782.0 [facility] [address] [place] [address] [id number] Jan, Dental caries K02.9 and Encounter for dental examination Z01.20 [place] [id number] [place] [address] 60819- 7332 Jan, Type 2 diabetes mellitus without complication E11.9 [place] [address] 69497- 9261 Jan, Type 2 diabetes mellitus without complication E11.9 ; Numbness and tingling of both legs 782.0 ; Fibromyalgia M79.7 ; Hyperlipidemia E78.5 ; Lumbago M54.5 ; Cervicalgia M54.2 ; Hypertension I10 ; CAD (coronary artery disease) I25.10 ; Tobacco abuse Z72.0 ; Tobacco abuse counseling Z71.6 and GERD (gastroesophageal reflux disease) K21.9 [place] [address] 00416- 3095 Jan, [place] [address] 24825- 1029 Dec, [facility] [address] [id number] Dec, Dental examination Z01.20 and Dental caries K02.9 [place] [address] 03832- 3939 Dec, Edema R60.9 ; Type 2 diabetes mellitus without complication E11.9 ; Hypertension I10 and Mouth pain K13.79 [place] [address] 96212- 1688 Dec, Degenerative disc disease, lumbar M51.36 [place] [address] 98980- 5408 Dec, [place] [address] 47458- 5088 Nov, Insomnia, unspecified G47.00 [place] [address] 86597- 3308 Nov, Type 2 diabetes mellitus without complication E11.9 ; Lumbago M54.5 ; Degenerative disc disease, lumbar M51.36 ; Fibromyalgia M79.7 ; Coronary artery disease I25.10 ; Hyperlipidemia E78.5 ; Controlled substance agreement signed Z79.899 ; Dysuria R30.0 ; Insomnia, unspecified G47.00 ; GERD ( gastroesophageal reflux disease) K21.9 ; Hypertension 401.9 and long-term 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 [place] [address] 10285- 8532 Nov, [place] [address] 04882- 0570 Oct, Degenerative disc disease, lumbar M51.36 ; Cervicalgia M54.2 ; Insomnia, unspecified G47.00 ; Decreased GFR R94.4 and GERD ( gastroesophageal reflux disease) K21.9 [place] [address] 63410- 8825 Oct, Lumbago M54.5 [place] [address] 57884- 3229 Oct, Low back pain M54.5 [place] [address] 72386- 3812 Oct, [place] [address] 16977- 4911 Oct, Disorientation R41.0 [place] [address] 43320- 5007 Oct, Type 2 diabetes mellitus without complication E11.9 ; Disorientation R41.0 and Chest pain R07.9 [place] [address] 72766- 3286 Oct, [place] [address] 99443- 6257 Sep, Low back pain M54.5 [place] [address] 34830- 2935 Sep, Insomnia, unspecified G47.00 [place] [address] 89864- 7488 Aug, Degenerative disc disease, lumbar M51.36 ; Type 2 diabetes mellitus without complication E11.9 and Encounter for immunization Z23 [place] [address] [address]- 9987 Aug, [facility] [address] [place] [address] 044980- 8813 Aug, [facility] [address] 8[address] Aug, [facility] [id number] [place] [address] 035370- 5788 Jul, [facility] [address] [place] [address] 72105- 3920 Jun, [facility] [id number] [place] [address] 82278- 1829 Jun, Chest pain 786.[address] [facility] [address] [place] [address] 27036- 1076 Jun, [facility] [address] [place] [address] 76887- 9713 Jun, [facility] [address] [place] [address] [id number] Jun, Dental examination V72.2 [facility] [address] [address]- 8405 Jun, [facility] [address] [place] [address] 39029- 4670 May, Left shoulder pain 719.41 and Numbness and tingling of both legs 782.0 [facility] [address] [address]- 8302 May, Cough 786.2 ; Numbness and tingling of both legs 782.0 and Acute rhinitis 460 [facility] [address] [address] 6938 May, [facility] [id number] [place] [address] 30742- 5918 Apr, [facility] [address] [address]- 0883 Apr, Bilateral lower extremity edema 782.3 ; Lumbago 724.[address] [facility] [address] [address]- 8096 Apr, [facility] [id number] [address]- 4716 Apr, [facility] [id number] [address]- 2069 March, Seborrheic keratosis 702.19 and Skin lesion of face 709.9 [facility] [address] [address]- 9643 March, [facility] [address] [address]- 3251 March, [facility] [address] [address]- 5685 March, [facility] [address] [address]- 6178 March, [facility] [address] [address]- 7887 Feb, [facility] [address] [address]- 1034 Feb, [facility] [address] [address]- 6810 Jan, [facility] [address] [address]- 3321 Jan, [facility] [address] [address]- 4115 Jan, [facility] [address] [address]- 8094 Jan, [facility] [id number] [place] [address]- 6782 16 Jan, 2014 [facility] [place] [facility] [address] [id number] [place] [address]- 6082 16 Jan, 2015 [facility] [place] [facility] [address] [id number] [place] [address]- 3275 13 Jan, 2015 [facility] [place] [facility] [address] [id number] [place] [address]- 6663 13 Jan, 2015 [facility] [place] [facility] [address] [id number] [place] [address]- 6694 13 Jan, 2015 [facility] [place] [facility] [address] [id number] [place] [address]- 3863 13 Jan, 2015 [facility] [place] [facility] [address] [facility] [id number] [place] [address]- 7649 10 Jan, 2015 [facility] [place] [facility] [address] [id number] [place] [address]- 6772 27 Dec, 2014 [facility] [place] [facility] [address] [id number] [place] [address]- 5672 Dec, [facility] [place] [facility] [address] [id number] [place] [address]- 6219 Dec, [facility] [place] [facility] [address] [facility] [id number] [place] [address]- 3534 Dec, [facility] [place] [facility] [address] [id number] [place] [address]- 6189 Dec, [facility] [place] [facility] [address] [id number] [place] [address]- 9634 Dec, [facility] [place] [facility] [address] [id number] [place] [address]- 9502 Nov, [facility] [place] [facility] [address] [id number] [place] [address]- 4693 Nov, [facility] [place] [facility] [address] [id number] [place] [address]- 2271 14 Nov, 2014 [facility] [place] [facility] [address] [id number] [place] [address]- 0358 14 Nov, 2014 [facility] [place] [facility] [address] [id number] [place] [address]- 5022 Nov, [facility] [place] [facility] [address] [id number] [place] [address]- 8220 Nov, [facility] [place] [facility] [address] [id number] [place] [address]- 1852 Nov, [facility] [place] [facility] [address] [id number] [place] [address]- 1147 Nov, [facility] [place] [facility] [address] [id number] [place] [address]- 6960 Nov, [facility] [place] [facility] [address] [id number] [place] [address]- 5787 Nov, [facility] [place] [facility] [address] [id number] [place] [address]- 2444 Nov, [facility] [place] [facility] [address] [id number] [place] [address]- 9990 Oct, [facility] [place] [facility] [address] [id number] [place] [address]- 2960 Oct, [facility] [place] [facility] [address] [id number] [place] [address]- 1948 Oct, [facility] [place] [facility] [address] [id number] [place] [address]- 1488 Oct, [facility] [place] [facility] [address] [id number] [place] [address]- 4326 Oct, [facility] [place] [facility] [address] [id number] [place] [address]- 7712 Oct, [facility] [place] [facility] [address] [id number] [place] [address]- 7234 Oct, [facility] [place] [facility] [address] [id number] [place] [address]- 0379 09 Oct, 2014 [facility] [place] [facility] [address] [id number] [place] [address]- 8607 Oct, [facility] [place] [facility] [address] [id number] [place] [address]- 7875 Oct, [facility] [place] [facility] [address] [id number] [place] [address]- 1613 Sep, [facility] [place] [facility] [address] [id number] [place] [address]- 9543 Sep, [facility] [place] [facility] [address] [id number] [place] [address]- 7468 Sep, [facility] [place] [facility] [address] [id number] [place] [address]- 0164 Sep, [facility] [place] [facility] [address] [id number] [place] [address]- 1334 Sep, [facility] [place] [facility] [address] [id number] [place] [address]- 0715 Sep, [facility] [place] [facility] [address] [id number] [place] [address]- 1016 Sep, [facility] [place] [facility] [address] [id number] [place] [address]- 5744 Sep, [facility] [place] [facility] [address] [id number] [place] [address]- 3464 Sep, [facility] [place] [facility] [address] [id number] [place] [address]- 2535 17 Sep, 2014 [facility] [place] [facility] [address] [id number] [place] [address]- 0085 13 Sep, 2014 [facility] [place] [facility] [address] [id number] [place] [address]- 7016 Sep, [facility] [place] [facility] [address] [id number] [place] [address]- 9361 Sep, [facility] [place] [facility] [address] [id number] [place] [address] Aug, [facility] [place] [facility] [address] [id number] [place] [address] Aug, [facility] [place] [facility] [address] [id number] [place] [address] Aug, [facility] [place] [facility] [address] [id number] [place] [address] Aug, [facility] [place] [facility] [address] [id number] [place] [address] Aug, [facility] [place] [facility] [address] [id number] [place] [address] Aug, [facility] [place] [facility] [address] [id number] [place] [address] Aug, [facility] [place] [facility] [address] [id number] [place] [address] Aug, [facility] [place] [facility] [address] [id number] [place] [address] Aug, [facility] [place] [facility] [address] [id number] [address] Aug, [facility] [place] [facility] [address] [id number] [address] Aug, [facility] [place] [facility] [address] [id number] [address] Aug, [facility] [place] [facility] [address] [id number] [address] Aug, [facility] [place] [facility] [address] [id number] [address] Aug, [facility] [place] [facility] [address] [id number] [address] Aug, [facility] [place] [facility] [address] [id number] [address] Aug, [facility] [place] [facility] [address] [id number] [place] [address] Aug, [facility] [place] [facility] [address] [id number] [place] [address] Aug, [facility] [place] [facility] [address] [id number] [place] [address] 30 Jul, 2013 [facility] [place] [facility] [address] [id number] [place] [address] 30 Jul, 2013 [facility] [place] [facility] [address] [id number] [place] [address] 24 Jul, 2013 [facility] [place] [facility] [address] [id number] [place] [address] 24 Jul, 2013 [facility] [place] [facility] [address] [id number] [place] [address] 23 Jul, 2013 [facility] [place] [facility] [address] [id number] [place] [address] 23 Jul, 2013 [facility] [place] [facility] [address] [id number] [place] [address] 15 Jul, 2014 [facility] [place] [facility] [address] [id number] [place] [address] 15 Jul, 2013 [facility] [place] [facility] [address] [id number] [address] 15 Jul, 2013 [facility] [place] [facility] [address] [id number] [address] 15 Jul, 2013 [facility] [place] [facility] [address] [id number] [place] [address] 2541 11 Jul, 2013 [facility] [place] [facility] [address] [id number] [place] [address]- [address] 11 Jul, 2013 [facility] [place] [facility] [address] [id number] [place] [address]- [address] 11 Jul, 2013 [facility] [place] [facility] [address] [id number] [place] [id number] 11 Jul, 2014 IMMUNIZATIONS No Known Immunizations SOCIAL HISTORY Never Assessed REASON FOR VISIT Phone call PLAN OF CARE VITAL SIGNS MEDICATIONS [...] r/t DDD Medical History fibromyalgia Medical History [place]-stent to [place] Surgical History cholecystectomy 1983 Surgical [...] Influenza illness, hyperglycemia 2017 Hospitalization History [facility]- High BS (Pt left AMA) 01/05/2018 Hospitalization History [facility]- DKA and UTI. Discharged 01/14/2018 Hospitalization History [facility]- Nausea and Vomiting, cannot urinate 01/18/2018
--- OUTSIDE RECORDS SUMMARY | 2018-06-01 10:12 | XMS REPORT ---
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 Name Role Phone JOSSY BARRETT Unavailable PROBLEMS Type Condition ICD9-CM Code VII25-KH Code Onset Dates Condition Status SNOMED Code Problem Tobacco abuse counseling Z71.6 Active 376807798 Problem DM neuro manif type II E11.49 Active 86155928 Problem Chronic pain syndrome G89.4 Active 566262160 Problem Other obesity due to excess calories E66.09 Active 823882925 Problem Body mass index (BMI) of 33.0-33.9 in adult Z68.33 Active 144209697 Problem Seasonal allergic rhinitis due to pollen J30.1 Active 07744033 Problem Dental caries K02.9 Active 04222037 Problem Arthritis M19.90 Active 8440798 Problem Primary insomnia F51.01 Active 5739656 Problem Hyperlipidemia E78.5 Active 56552190 Problem Degenerative disc disease, lumbar M51.36 Active 07838751 Problem Alterations of sensations R20.9 Active 971866061 Problem FPC 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 Active 818824351 Problem 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 I10 Active 88777490 Problem Fibromyalgia M79.7 Active 01916535 Problem CAD (coronary artery disease) I25.10 Active 03688537 Problem GERD (gastroesophageal reflux disease) K21.9 Active 865020649 Problem Tobacco abuse Z72.0 Active 34631819 ALLERGIES No Information ENCOUNTERS Encounter Location Date Diagnosis [facility] [address] [facility] [id number] [address] Apr, [facility] [address], [place] [address] March, [facility] [id number] [address] Feb, Tobacco abuse Z72.0 [place] [address] [address]95- 0286 12 Feb, 2018 Tobacco abuse Z72.[address] [address]254- 4487 06 Feb, 2018 Hypokalemia E87.[address] 59322- 4275 05 Feb, 2018 Hyperlipidemia E78.5 ; 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 I10 ; DM neuro manif type II E11.49 ; Fibromyalgia M79.7 ; Acute non-recurrent frontal sinusitis J01.10 ; Other obesity due to excess calories E66.09 and Body mass index (BMI) of 33.0-33.9 in adult Z68.[address] 21334- 2996 05 Jan, 2018 Dysuria R30.[address] 78458- 5168 05 Jan, 2018 Dysuria R30.0 [place] [address] [address]87- 6529 02 Jan, 2018 Acute cystitis with hematuria N30.01 ; DM neuro manif type II E11.49 ; 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 ; 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 I10 and Hospital discharge follow-up Z09 [place] [address] 49407- 0642 27 Dec, 2017 Chest pain, unspecified type R07.9 ; Dehydration E86.0 and Anuria R34 [place] [address] 25084- 0395 Dec, [address] 04642- 2603 Dec, Hyperglycemia R73.9 ; Dehydration E86.0 and Acute cystitis with hematuria N30.01 [facility] [address] [address] Dec, [facility] [id number] [place] [address] 45027 -7124 Dec, [facility] [address] [id number] [place] [address] 60818 -8719 Dec, [facility] [address] [place] [address] [id number] [place] [address] 57710 -1003 Dec, Dysuria R30.0 ; Acute cystitis with hematuria N30.01 and Weakness R53.1 [place] [id number] [place] [address] 66150- 6103 Dec, [place] [address] 20969- 6496 Nov, [place] [address] [id number] [place] [address] 80490- 7951 Nov, [place] [address] [id number] [place] [address] 35206- 3418 Nov, 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 I10 ; DM neuro manif type II E11.49 ; 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 ; Tobacco abuse Z72.0 ; Hyperlipidemia E78.5 ; Non-adherence to medical treatment Z91.19 ; GERD (gastroesophageal reflux disease) K21.9 ; Degenerative disc disease, lumbar M51.36 ; Fibromyalgia M79.7 ; Chronic pain syndrome G89.4 ; Dental caries K02.9 and Seasonal allergic rhinitis due to pollen J30.1 [place] [address] [id number] [place] [address] 02353- 5614 Nov, Alterations of sensations R20.9 [place] [address] [id number] [place] [address] 70165- 5828 Sep, DM neuro manif type II E11.49 ; Hyperlipidemia E78.5 ; Degenerative disc disease, lumbar M51.36 and Chronic pain syndrome G89.4 [place] [address] [place] [id number] [place] [address] 24150- 3744 Sep, Arthritis M19.90 [place] [address] [place] [id number] [place] [address] 61946- 2824 Sep, Type 2 diabetes mellitus without complication E11.9 ; GERD ( gastroesophageal reflux disease) K21.9 ; Arthritis M19.90 and Chronic pain syndrome G89.4 [facility] [id number] [place] [address] 73634- 1323 Sep, [facility] [address] 00451- 3365 Aug, [facility] [address] [id number] [place] [address] 56511- 8709 Aug, Type 2 diabetes mellitus without complication E11.9 [facility] [id number] [place] [address] 92718- 6000 Aug, [facility] [id number] [place] [address] 40808- 7539 Aug, [facility] [id number] [place] [address] 09475- 3468 Aug, [facility] [id number] [place] [address] 22774- 0098 Jul, [facility] [id number] [place] [address] 80752 -5397 22 Jul, 2017 Acute non-recurrent frontal sinusitis J01.10 [facility] [address] [place] [id number] [place] [address] 96826- 9047 20 Jul, 2017 CAD (coronary artery disease) I25.10 and GERD ( gastroesophageal reflux disease) K21.9 [facility] [id number] [place] [address] 86428- 7002 14 Jul, 2017 Localized swelling, mass and lump, neck R22.1 [facility] [address] [place] [id number] [place] [address] 58575- 6790 06 Jul, 2017 [facility] [id number] [place] [address] 23216- 2391 Jun, Type 2 diabetes mellitus without complication E11.9 ; Primary insomnia F51.01 ; Alterations of sensations R20.9 ; Hyperlipidemia E78.5 ; GERD (gastroesophageal reflux disease) K21.9 ; 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 I10 ; FPC 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 ; Tobacco abuse Z72.0 ; Tobacco abuse counseling Z71.6 and CAD (coronary artery disease) I25.10 [place] [address] [place] [address] [id number] [place] [address] 49347- 4990 May, [place] [address] 68756- 1510 May, Type 2 diabetes mellitus without complication E11.9 [place] [address] 23811- 3691 May, [place] [address] 77375- 5886 March, [place] [address] 61458- 2148 Feb, [facility] [address] 57056 -8995 Jan, Acute suppurative otitis media of left ear with spontaneous rupture of tympanic membrane, recurrence not specified H66.012 [place] [address] [id number] [place] [address] 37519- 1575 Dec, Type 2 diabetes mellitus without complication E11.9 ; Lumbago M54.5 ; Cervicalgia M54.2 ; Hyperlipidemia E78.5 ; GERD ( gastroesophageal reflux disease) K21.9 ; Chronic pain syndrome G89.4 ; Dysuria R30.0 and 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 I10 [place] [address] [id number] [place] [address] 77999- 2420 Oct, [place] [address] 57920- 3013 Sep, Diabetic mononeuropathy associated with type 2 diabetes mellitus E11.41 and Coughing R05 [place] [address] [place] [address]- 8192 28 Sep, 2016 Diabetic mononeuropathy associated with type 2 diabetes mellitus E11.41 and Coughing R05 [place] [address] 44589- 7627 18 Sep, 2016 Onychomycosis B35.1 ; Neuritis M79.2 and Type 2 diabetes mellitus without complication E11.9 [place] [address] 94412- 3476 14 Sep, 2016 [place] [address] 53019- 0907 03 Sep, 2016 Cough R05 ; Seasonal allergic rhinitis due to pollen J30.1 and Acute upper respiratory infection, unspecified J06.9 [place] [address] 31106- 5503 02 Sep, 2016 [place] [address] 40800- 1532 Aug, [place] [address] 91623- 7111 13 Jul, 2016 Type 2 diabetes mellitus without complication E11.9 ; Chronic pain G89.29 ; 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 I10 and Acute non-recurrent maxillary sinusitis J01.00 [place] [address] [place] [id number] [place] [address] 82509- 8674 02 Jul, 2016 Chronic pain syndrome G89.4 ; Lumbago M54.5 and Cervicalgia M54.2 [place] [address] [place] [id number] [place] [address] 88310- 8810 Jul, [place] [address] 85318- 4651 Jul, [place] [address] [place] [id number] [place] [address] 15065- 6704 Jun, Onychomycosis B35.1 ; Onychocryptosis L60.0 and DM neuro manif type II E11.49 [place] [address] [place] [id number] [place] [address] 50833- 3083 Jun, Type 2 diabetes mellitus without complication E11.9 ; Pain in unspecified hip M25.559 ; Other chronic pain G89.29 ; Lumbago M54.5 ; Chronic pain G89.29 ; Insomnia, unspecified G47.00 ; GERD (gastroesophageal reflux disease) K21.9 and Dental caries K02.[address] 09258- 7186 Jun, Type 2 diabetes mellitus without complication E11.9 ; Lumbago M54.5 ; Chronic pain G89.29 ; Insomnia, unspecified G47.00 ; GERD ( gastroesophageal reflux disease) K21.9 ; Dental caries K02.9 ; Pain in unspecified hip M25.559 and Other chronic pain G89.[address] 07988- 8003 May, [address] 13329- 4986 May, Type 2 diabetes mellitus without complication E11.9 ; 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 I10 ; Chronic pain syndrome G89.4 ; Other seasonal allergic rhinitis J30.2 and Insomnia, unspecified G47.00 [place] [id number] [place] [address] 76967- 3399 Apr, [place] [id number] [place] [address] 51786- 4868 Apr, Hypertension I10 and Chronic pain G89.29 [place] [id number] [place] [address] 46524- 0003 March, Onychomycosis B35.1 ; Onychocryptosis L60.0 and Type 2 diabetes mellitus without complication E11.9 [place] [id number] [place] [address] 08510- 1741 March, Type 2 diabetes mellitus without complication E11.9 ; 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 I10 ; Alterations of sensations R20.9 ; Chronic pain syndrome G89.4 ; Tobacco abuse Z72.0 and Tobacco abuse counseling Z71.6 [place] [id number] [place] [address] 86877- 1842 Feb, Cough R05 ; Type 2 diabetes mellitus without complication E11.9 ; Tobacco abuse counseling Z71.6 and Chronic pain G89.29 [place] [address] 02162- 3197 Feb, [address] 07466- 8711 Feb, Type 2 diabetes mellitus without complication E11.9 ; Lumbago M54.5 ; Cervicalgia M54.2 ; Degenerative disc disease, lumbar M51.36 and Numbness and tingling of both legs 782.0 [facility] [id number] [place] [address] [id number] Jan, Dental caries K02.9 and Encounter for dental examination Z01.[address] 02503- 2279 Jan, Type 2 diabetes mellitus without complication E11.[address] 11719- 8490 Jan, Type 2 diabetes mellitus without complication E11.9 ; Numbness and tingling of both legs 782.0 ; Fibromyalgia M79.7 ; Hyperlipidemia E78.5 ; Lumbago M54.5 ; Cervicalgia M54.2 ; Hypertension I10 ; CAD (coronary artery disease) I25.10 ; Tobacco abuse Z72.0 ; Tobacco abuse counseling Z71.6 and GERD (gastroesophageal reflux disease) K21.9 [place] [id number] [place] [address] 31566- 3374 Jan, [address] 01248- 0663 Dec, [facility] [id number] [place] [address] [id number] Dec, Dental examination Z01.20 and Dental caries K02.9 [place] [address] [place] [id number] [place] [address] 48935- 0991 Dec, Edema R60.9 ; Type 2 diabetes mellitus without complication E11.9 ; Hypertension I10 and Mouth pain K13.79 [place] [address] [place] [id number] [place] [address] 89159- 1010 Dec, Degenerative disc disease, lumbar M51.36 [place] [address] 04460- 7517 Dec, [address] 62627- 7105 Nov, Insomnia, unspecified G47.00 [place] [address] 83447- 1404 Nov, Type 2 diabetes mellitus without complication E11.9 ; Lumbago M54.5 ; Degenerative disc disease, lumbar M51.36 ; Fibromyalgia M79.7 ; Coronary artery disease I25.10 ; Hyperlipidemia E78.5 ; Controlled substance agreement signed Z79.899 ; Dysuria R30.0 ; Insomnia, unspecified G47.00 ; GERD ( gastroesophageal reflux disease) K21.9 ; Hypertension 401.9 and FPC 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 [place] [address] [place] [id number] [place] [address] 45268- 0459 Nov, [place] [address] [place] [id number] [place] [address] 39844- 6518 Oct, Degenerative disc disease, lumbar M51.36 ; Cervicalgia M54.2 ; Insomnia, unspecified G47.00 ; Decreased GFR R94.4 and GERD ( gastroesophageal reflux disease) K21.9 [place] [address] 38643- 7424 Oct, Lumbago M54.5 [place] [address] [place] [id number] [place] [address] 34583- 2966 Oct, Low back pain M54.5 [place] [address] [place] [id number] [place] [address] 35365- 2997 Oct, [facility] [address] 71186- 2935 Oct, Disorientation R41.0 [facility] [address] [place] [id number] [place] [address] 57419- 3649 Oct, Type 2 diabetes mellitus without complication E11.9 ; Disorientation R41.0 and Chest pain R07.9 [facility] [address] [place] [id number] [place] [address] 29022- 1652 Oct, [facility] [address] 81966- 8216 Sep, Low back pain M54.5 [facility] [address] [place] [id number] [place] [address] 36664- 3766 Sep, Insomnia, unspecified G47.00 [facility] [address] 04169- 1943 Aug, Degenerative disc disease, lumbar M51.36 ; Type 2 diabetes mellitus without complication E11.9 and Encounter for immunization Z23 [facility] [id number] [place] [address] 73313- 8162 Aug, [facility] [address] [place] [id number] [place] [address] 64862- 3944 Aug, [facility] [id number] [place] [address] 43553- 3442 Aug, [facility] [address] [place] [id number] [place] [address] 65625- 2923 Jul, [facility] [address] 82336- 5725 Jun, [facility] [address] [id number] [place] [address] 32513- 2012 Jun, Chest pain 786.50 and Lumbago 724.2 [facility] [address] [id number] [address]- 3327 Jun, [facility] [id number] [place] [address] 12609- 2947 Jun, [facility] [id number] [place] [address] [id number] Jun, Dental examination V72.2 [facility] [address] [place] [id number] [place] [address] 21667- 0211 Jun, [facility] [id number] [place] [address] 81779- 5180 May, Left shoulder pain 719.41 and Numbness and tingling of both legs 782.0 [facility] [address] [place] [id number] [place] [address] 21403- 3584 May, Cough 786.2 ; Numbness and tingling of both legs 782.0 and Acute rhinitis 460 [facility] [address] [place] [id number] [place] [address] 44407- 1100 May, [facility] [id number] [place] [address] 92338- 7769 Apr, [facility] [address] [place] [id number] [place] [address] 20144- 2905 Apr, Bilateral lower extremity edema 782.3 ; Lumbago 724.2 and Insomnia 780.52 [facility] [address] [place] [address] 54520- 6405 Apr, [facility] [address] [id number] [place] [address] 12407- 5790 Apr, [facility] [address] [id number] [place] [address] 40182- 2069 March, Seborrheic keratosis 702.19 and Skin lesion of face 709.9 [facility] [id number] [place] [address] 00324- 4137 March, [facility] [address] [facility] [id number] [place] [address]- 7216 March, [facility] [place] [facility] [address] [id number] [place] [address]- 4113 March, [facility] [place] [facility] [address] [id number] [place] [address] 2546 March, [facility] [place] [facility] [address] [id number] [place] [address]- 0463 Feb, [facility] [place] [facility] [address] [id number] [place] [address]- 7742 Feb, [facility] [place] [facility] [address] [id number] [place] [address]- 9290 25 Jan, 2015 [facility] [place] [facility] [address] [id number] [place] [address]- 5347 25 Jan, 2015 [facility] [place] [facility] [address] [id number] [place] [address]- 2101 16 Jan, 2015 [facility] [place] [facility] [address] [id number] [place] [address]- 1926 16 Jan, 2015 [facility] [place] [facility] [address] [id number] [place] [address]- 0109 16 Jan, 2015 [facility] [place] [facility] [address] [id number] [place] [address]- 4438 16 Jan, 2015 [facility] [place] [facility] [address] [id number] [place] [address]- 0719 13 Jan, 2015 [facility] [place] [facility] [address] [id number] [place] [address]- 2944 13 Jan, 2015 [facility] [place] [facility] [address] [id number] [place] [address]- 2875 13 Jan, 2015 [facility] [place] [facility] [address] [id number] [place] [address]- 8806 13 Jan, 2015 [facility] [place] [facility] [address] [id number] [place] [address]- 9218 Jan, [facility] [place] [facility] [address] [id number] [place] [address]- 2996 Dec, [facility] [place] [facility] [address] [id number] [place] [address]- 9859 Dec, [facility] [place] [facility] [address] [id number] [place] [address]- 7113 Dec, [facility] [place] [facility] [address] [id number] [place] [address]- 7182 Dec, [facility] [place] [facility] [address] [id number] [place] [address]- 7782 Dec, [facility] [place] [facility] [address] [id number] [place] [address]- 1660 Dec, [facility] [place] [facility] [address] [id number] [place] [address]- 4167 Nov, [facility] [place] [facility] [address] [id number] [place] [address]- 3992 Nov, [facility] [place] [facility] [address] [id number] [place] [address]- 1829 Nov, [facility] [place] [facility] [address] [id number] [place] [address]- 6376 Nov, [facility] [place] [facility] [address] [id number] [place] [address]- 7251 Nov, [facility] [place] [facility] [address] [id number] [place] [address]- 2311 Nov, [facility] [place] [facility] [address] [id number] [place] [address]- 8339 Nov, [facility] [place] [facility] [address] [id number] [place] [address]- 9907 Nov, [facility] [place] [facility] [address] [id number] [place] [address]- 2696 Nov, [facility] [place] [facility] [address] [id number] [place] [address]- 2232 Nov, [facility] [address] [id number] [place] [address]- 1254 Nov, [facility] [place] [facility] [address] [id number] [place] 7205 Oct, [facility] [address] [id number] [place] [address]- 9148 Oct, [facility] [place] [facility] [address] [id number] [place] [address]- 9051 Oct, [facility] [address] [id number] [place] [address]- 6044 Oct, [facility] [address] [id number] [place] [address]- 8089 Oct, [facility] [place] [facility] [address] [id number] [place] [address]- 1919 Oct, [facility] [address] [id number] [place] [address]- 2932 Oct, [facility] [place] [facility] [address] [id number] [place] [address]- 6658 Oct, [facility] [address] [id number] [place] [address]- 2916 Oct, [facility] [place] [facility] [address] [id number] [place] [address]- 5701 Oct, [facility] [place] [facility] [address] [id number] [place] [address]- 5737 Sep, [facility] [place] [facility] [address] [id number] [place] [address] Sep, [facility] [place] [facility] [address] [id number] [place] [address] Sep, [facility] [place] [facility] [address] [id number] [place] [address] Sep, [facility] [place] [facility] [address] [id number] [place] [address] Sep, [facility] [place] [facility] [address] [id number] [place] [address] Sep, [facility] [place] [facility] [address] [id number] [place] [address] Sep, [facility] [place] [facility] [address] [id number] [place] [address] Sep, [facility] [place] [facility] [address] [id number] [place] [address] Sep, [facility] [place] [facility] [address] [id number] [place] [address] Sep, [facility] [place] [facility] [address] [id number] [place] [address] Sep, [facility] [place] [facility] [address] [id number] [place] [address] Sep, [facility] [place] [facility] [address] [id number] [place] [address] Sep, [facility] [place] [facility] [address] [id number], [place] [address] Aug, [facility] [place] [facility] [address] [id number], [place] [address] 30 Aug, 2014 [facility] [place] [facility] [address] [id number], [place] [address] 30 Aug, 2014 [facility] [place] [facility] [address] [id number] [place] [address] 30 Aug, 2014 [facility] [place] [facility] [address] [id number], [place] [address] 30 Aug, 2014 [facility] [place] [facility] [address] [id number], [place] [address] 30 Aug, 2014 [facility] [place] [facility] [address] [id number], [place] [address] Aug, [facility] [place] [facility] [address] [id number] [place] [address] Aug, [facility] [place] [facility] [address] [id number] [place] [address] Aug, [facility] [place] [facility] [address] [id number] [place] [address] Aug, [facility] [place] [facility] [address] [id number] [place] [address] Aug, [facility] [place] [facility] [address] [id number] [place] [address] Aug, [facility] [place] [facility] [address] [id number] [place] [address] Aug, [facility] [place] [facility] [address] [id number], [place] [address] Aug, [facility] [place] [facility] [address] [id number] [place] [address] Aug, [facility] [place] [facility] [address] [facility] [id number] [place] [address] Aug, [facility] [place] [facility] [address] [facility] [id number], [place] [address] Aug, [facility] [place] [facility] [address] [id number], [place] [address] Aug, [facility] [place] [facility] [address] [id number], [place] [address] 30 Jul, 2013 [facility] [place] [facility] [address] [id number] [place] [address] 30 Jul, 2013 [facility] [place] [facility] [address] [facility] [id number], [place] [address] 24 Jul, 2013 [facility] [place] [facility] [address] [id number], [place] [address] 24 Jul, 2013 [facility] [place] [facility] [address] [id number], [place] [address] 23 Jul, 2014 [facility] [id number], [place] [address] 23 Jul, 2014 [facility] [id number], [place] [address] 15 Jul, 2014 [facility] [id number], [place] [address] 15 Jul, 2014 [facility] [id number], [place] [address] 15 Jul, 2014 [facility] [id number], [place] [address] Jul, [facility] [id number], [place] [address] Jul, [facility] [id number], [place] [address] Jul, [facility] [id number], [place] [address] Jul, [facility] [id number], [place] [address] Jul, IMMUNIZATIONS No Known Immunizations SOCIAL HISTORY Never Assessed REASON FOR VISIT DM Education PLAN OF CARE VITAL SIGNS MEDICATIONS Unknown [...] r/t DDD Medical History fibromyalgia Medical History [place]-stent to [place] Surgical History cholecystectomy 1983 Surgical [...] Influenza illness, hyperglycemia 2017 Hospitalization History [facility]- High BS (Pt left AMA) 01/05/2018 Hospitalization History [facility]- DKA and UTI. Discharged 01/14/2018 Hospitalization History [facility] [place]- Nausea and Vomiting, cannot urinate 01/18/2018
--- OUTSIDE RECORDS SUMMARY | 2018-06-01 10:13 | XMS REPORT ---
Author Author KIMMIE MARCELINO Organization [facility] Address [address] [place] [address] Care Team Providers Care Liquid Flavor Compounder Name Role Phone BURKSMARCELINO Rene Unavailable PROBLEMS Type Condition ICD9-CM Code CBY27-OE Code Onset Dates Condition Status SNOMED Code Problem DM neuro manif type II E11.49 Active 95308826 Problem Seasonal allergic rhinitis due to pollen J30.1 Active 42621249 Problem Dental caries K02.9 Active 76068234 Problem Cervicalgia M54.2 Active 27413511 Problem Alterations of sensations R20.9 Active 815508031 Problem Diabetic mononeuropathy associated with type 2 diabetes mellitus E11.41 Active 652991828 Problem Arthritis M19.90 Active 3774031 Problem Primary insomnia F51.01 Active 7121007 Problem Body mass index (BMI) of 33.0-33.9 in adult Z68.33 Active 613017850 Problem Other obesity due to excess calories E66.09 Active 374486309 Problem Fibromyalgia M79.7 Active 91653619 Problem GERD (gastroesophageal reflux disease) K21.9 Active 064740767 Problem Hyperlipidemia E78.5 Active 88576317 Problem Degenerative disc disease, lumbar M51.36 Active 69121964 Problem CAD (coronary artery disease) I25.10 Active 77060899 Problem Tobacco abuse Z72.0 Active 17472916 Problem 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 I10 Active 72083126 Problem Tobacco abuse counseling Z71.6 Active 969720624 Problem group home 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 Active 073989927 Problem Chronic pain syndrome G89.4 Active 051209690 ALLERGIES No Information ENCOUNTERS Encounter Location Date Diagnosis [facility] [address] [facility] [id number] [address] Jul, [facility] [address] [facility] [id number], [place] [address] 14 Apr, 2018 Hyperlipidemia E78.5 ; Chronic pain syndrome G89.4 ; Cervicalgia M54.2 ; DM neuro manif type II E11.49 ; 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 ; Nausea alone R11.0 ; 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 I10 ; GERD ( gastroesophageal reflux disease) K21.9 ; CAD (coronary artery disease) I25.10 and Diabetic mononeuropathy associated with type 2 diabetes mellitus E11.[address] [address]- [address] Apr, [place] [address] [address] March, 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 I10 ; DM neuro manif type II E11.49 and GERD (gastroesophageal reflux disease) K21.9 [place] [address] [address]- [address] March, DM neuro manif type II E11.49 and GERD (gastroesophageal reflux disease) K21.9 [place] [address] 73598- 5286 March, [place] [address] 17613- 7270 Feb, Tobacco abuse Z72.0 [place] [address] 47408- 3883 Feb, Tobacco abuse Z72.0 [place] [address] 29153- 7860 Feb, Hypokalemia E87.[address] [address]- 1185 Feb, Hyperlipidemia E78.5 ; 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 I10 ; DM neuro manif type II E11.49 ; Fibromyalgia M79.7 ; Acute non-recurrent frontal sinusitis J01.10 ; Other obesity due to excess calories E66.09 and Body mass index (BMI) of 33.0-33.9 in adult Z68.[address] [address]- 4[address] Jan, Dysuria R30.0 [facility] [address] [address]- [address] 05 Jan, 2018 Dysuria R30.0 [place] [address] 81126- 5566 02 Jan, 2018 Acute cystitis with hematuria N30.01 ; DM neuro manif type II E11.49 ; 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 ; 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 I10 and Hospital discharge follow-up Z09 [place] [address] [address]- [address]73 27 Dec, 2017 Chest pain, unspecified type R07.9 ; Dehydration E86.0 and Anuria R34 [place] [address] 66745- 2371 Dec, [place] [address] 87155- 4062 22 Dec, 2017 Hyperglycemia R73.9 ; Dehydration E86.0 and Acute cystitis with hematuria N30.01 [facility] [address] [address] Dec, [facility] [address] [address] Dec, [facility] [address] [address] Dec, [facility] [address] 577[address] 16 Dec, 2017 Dysuria R30.0 ; Acute cystitis with hematuria N30.01 and Weakness R53.1 [place] [address] 9[address]31- 4455 09 Dec, 2017 [facility] [address] 305[address]- 8141 Nov, [place] [address] 56931- 6708 Nov, [place] [address] 48027- 7994 Nov, 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 I10 ; DM neuro manif type II E11.49 ; 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 ; Tobacco abuse Z72.0 ; Hyperlipidemia E78.5 ; Non-adherence to medical treatment Z91.19 ; GERD (gastroesophageal reflux disease) K21.9 ; Degenerative disc disease, lumbar M51.36 ; Fibromyalgia M79.7 ; Chronic pain syndrome G89.4 ; Dental caries K02.9 and Seasonal allergic rhinitis due to pollen J30.1 [place] [address] 71008- 1130 Nov, Alterations of sensations R20.9 [place] [address] 86690- 2686 Sep, DM neuro manif type II E11.49 ; Hyperlipidemia E78.5 ; Degenerative disc disease, lumbar M51.36 and Chronic pain syndrome G89.4 [place] [address] 05287- 9501 Sep, Arthritis M19.[address] 60546- 0028 Sep, Type 2 diabetes mellitus without complication E11.9 ; GERD ( gastroesophageal reflux disease) K21.9 ; Arthritis M19.90 and Chronic pain syndrome G89.4 [place] [address] 79687- 7040 Sep, [place] [address] 24832- 3991 Aug, [place] [address] 26104- 9218 Aug, Type 2 diabetes mellitus without complication E11.9 [place] [address] 92419- 4054 Aug, [place] [address] [address] 16 Aug, 2017 [facility] [address] [place] [id number] [place] [address] 67506- 6640 16 Aug, 2017 [facility] [address] [place] [id number] [place] [address] 66243- 8319 26 Jul, 2017 [facility] [address] [place] [id number] [place] [address] 68966 -1664 22 Jul, 2017 Acute non-recurrent frontal sinusitis J01.10 [facility] [address] [place] [id number] [place] [address] 56720- 3765 20 Jul, 2017 CAD (coronary artery disease) I25.10 and GERD ( gastroesophageal reflux disease) K21.9 [place] [address] [place] [id number] [place] [address] 70839- 1342 14 Jul, 2017 Localized swelling, mass and lump, neck R22.1 [place] [address] [place] [id number] [place] [address] 54450- 9537 06 Jul, 2017 [place] [address] [place] [id number] [place] [address] 21222- 3305 Jun, Type 2 diabetes mellitus without complication E11.9 ; Primary insomnia F51.01 ; Alterations of sensations R20.9 ; Hyperlipidemia E78.5 ; GERD (gastroesophageal reflux disease) K21.9 ; 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 I10 ; group home 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 ; Tobacco abuse Z72.0 ; Tobacco abuse counseling Z71.6 and CAD (coronary artery disease) I25.10 [facility] [address] [place] [address] 53199- 9274 May, [place] [address] [place] [id number] [place] [address] 43301- 8817 May, Type 2 diabetes mellitus without complication E11.9 [place] [address] [place] [address] 95746- 3125 May, [place] [address] [place] [id number] [place] [address] 31679- 1070 March, [facility] [address] [place] [id number] [place] [address] 86813- 3650 Feb, [facility] [address] [address] -[address]26 Jan, Acute suppurative otitis media of left ear with spontaneous rupture of tympanic membrane, recurrence not specified H66.012 [place] [address] 94988- 9519 Dec, Type 2 diabetes mellitus without complication E11.9 ; Lumbago M54.5 ; Cervicalgia M54.2 ; Hyperlipidemia E78.5 ; GERD ( gastroesophageal reflux disease) K21.9 ; Chronic pain syndrome G89.4 ; Dysuria R30.0 and 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 I10 [place] [address] 78547- 6697 Oct, [place] [address] 49338- 9132 Sep, Diabetic mononeuropathy associated with type 2 diabetes mellitus E11.41 and Coughing R05 [place] [address] 70426- 3024 Sep, Diabetic mononeuropathy associated with type 2 diabetes mellitus E11.41 and Coughing R05 [place] [address] [place] [id number] [place] [address] 88726- 7167 Sep, Onychomycosis B35.1 ; Neuritis M79.2 and Type 2 diabetes mellitus without complication E11.9 [place] [address] [place] [id number] [place] [address] 02838- 2088 Sep, [place] [address] 31629- 4557 Sep, Cough R05 ; Seasonal allergic rhinitis due to pollen J30.1 and Acute upper respiratory infection, unspecified J06.9 [place] [address] 66493- 0570 Sep, [place] [address] [place] [id number] [place] [address] 98757- 4486 Aug, [place] [address] 92680- 7587 Jul, Type 2 diabetes mellitus without complication E11.9 ; Chronic pain G89.29 ; 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 I10 and Acute non-recurrent maxillary sinusitis J01.[address] 32924- 0785 Jul, Chronic pain syndrome G89.4 ; Lumbago M54.5 and Cervicalgia M54.[address] 17961- 2431 Jul, [address] 41723- 7519 Jul, [address] 00318- 4532 Jun, Onychomycosis B35.1 ; Onychocryptosis L60.0 and DM neuro manif type II E11.49 [place] [id number] [place] [address] 86919- 5900 Jun, Type 2 diabetes mellitus without complication E11.9 ; Pain in unspecified hip M25.559 ; Other chronic pain G89.29 ; Lumbago M54.5 ; Chronic pain G89.29 ; Insomnia, unspecified G47.00 ; GERD (gastroesophageal reflux disease) K21.9 and Dental caries K02.9 [place] [id number] [place] [address] 13392- 5462 Jun, Type 2 diabetes mellitus without complication E11.9 ; Lumbago M54.5 ; Chronic pain G89.29 ; Insomnia, unspecified G47.00 ; GERD ( gastroesophageal reflux disease) K21.9 ; Dental caries K02.9 ; Pain in unspecified hip M25.559 and Other chronic pain G89.29 [address] [place] [address] 62976- 2646 May, [address] 71815- 6140 May, Type 2 diabetes mellitus without complication E11.9 ; 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 I10 ; Chronic pain syndrome G89.4 ; Other seasonal allergic rhinitis J30.2 and Insomnia, unspecified G47.00 [place] [address] 19709- 3225 Apr, [address] 07693- 4346 Apr, Hypertension I10 and Chronic pain G89.[address] 92694- 9152 March, Onychomycosis B35.1 ; Onychocryptosis L60.0 and Type 2 diabetes mellitus without complication E11.9 [place] [address] [place] [id number] [place] [address] 20094- 0240 March, Type 2 diabetes mellitus without complication E11.9 ; 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 I10 ; Alterations of sensations R20.9 ; Chronic pain syndrome G89.4 ; Tobacco abuse Z72.0 and Tobacco abuse counseling Z71.6 [place] [id number] [place] [address] 64059- 3400 Feb, Cough R05 ; Type 2 diabetes mellitus without complication E11.9 ; Tobacco abuse counseling Z71.6 and Chronic pain G89.29 [place] [address] [place] [id number] [place] [address] 50970- 8204 Feb, [address] 67166- 0667 Feb, Type 2 diabetes mellitus without complication E11.9 ; Lumbago M54.5 ; Cervicalgia M54.2 ; Degenerative disc disease, lumbar M51.36 and Numbness and tingling of both legs 782.0 [facility] [place] [facility] [address] [place] [id number] [place] [id number] Jan, Dental caries K02.9 and Encounter for dental examination Z01.20 [place] [address] 53461- 6254 Jan, Type 2 diabetes mellitus without complication E11.9 [place] [address] 50953- 5915 Jan, Type 2 diabetes mellitus without complication E11.9 ; Numbness and tingling of both legs 782.0 ; Fibromyalgia M79.7 ; Hyperlipidemia E78.5 ; Lumbago M54.5 ; Cervicalgia M54.2 ; Hypertension I10 ; CAD (coronary artery disease) I25.10 ; Tobacco abuse Z72.0 ; Tobacco abuse counseling Z71.6 and GERD (gastroesophageal reflux disease) K21.9 [place] [address] 56338- 0269 Jan, [place] [address] 81637- 5899 Dec, [facility] [address] [id number] Dec, Dental examination Z01.20 and Dental caries K02.9 [place] [address] 90324- 0631 Dec, Edema R60.9 ; Type 2 diabetes mellitus without complication E11.9 ; Hypertension I10 and Mouth pain K13.79 [place] [address] 22883- 9535 Dec, Degenerative disc disease, lumbar M51.36 [place] [address] 20372- 5667 Dec, [place] [address] 91506- 5582 Nov, Insomnia, unspecified G47.00 [place] [address] 12324- 8172 Nov, Type 2 diabetes mellitus without complication E11.9 ; Lumbago M54.5 ; Degenerative disc disease, lumbar M51.36 ; Fibromyalgia M79.7 ; Coronary artery disease I25.10 ; Hyperlipidemia E78.5 ; Controlled substance agreement signed Z79.899 ; Dysuria R30.0 ; Insomnia, unspecified G47.00 ; GERD ( gastroesophageal reflux disease) K21.9 ; Hypertension 401.9 and 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 [place] [address] 07328- 9277 Nov, [place] [address] 13376- 9471 Oct, Degenerative disc disease, lumbar M51.36 ; Cervicalgia M54.2 ; Insomnia, unspecified G47.00 ; Decreased GFR R94.4 and GERD ( gastroesophageal reflux disease) K21.9 [place] [address] 99092- 7240 Oct, Lumbago M54.5 [place] [address] 58190- 4337 Oct, Low back pain M54.5 [place] [address] 14840- 1564 Oct, [place] [address] 59283- 7504 Oct, Disorientation R41.0 [place] [address] 32408- 9317 Oct, Type 2 diabetes mellitus without complication E11.9 ; Disorientation R41.0 and Chest pain R07.9 [place] [address] 46209- 6281 Oct, [place] [address] 26211- 8017 Sep, Low back pain M54.5 [place] [address] 67263- 9351 Sep, Insomnia, unspecified G47.00 [facility] [address] 42228- 4403 Aug, Degenerative disc disease, lumbar M51.36 ; Type 2 diabetes mellitus without complication E11.9 and Encounter for immunization Z23 [facility] [address] [place] [id number] [place] [address] 27238- 3468 Aug, [facility] [address] 48360- 7888 Aug, [facility] [address] 26774- 4620 Aug, [facility] [address] 94767- 8833 Jul, [facility] [address] 96459- 5631 Jun, [facility] [address] [place] [id number] [place] [address] 79057- 5261 Jun, Chest pain 786.50 and Lumbago 724.2 [facility] [address] 77921- 9919 Jun, [facility] [address] [place] [id number] [place] [address] 61807- 7133 Jun, [facility] [address] [place] [id number] [place] [address] [id number] Jun, Dental examination V72.2 [facility] [address] [place] [id number] [place] [address] 11479- 0468 Jun, [facility] [address] 39553- 8833 May, Left shoulder pain 719.41 and Numbness and tingling of both legs 782.0 [facility] [address] [place] [id number] [place] [address] 11791- 9876 May, Cough 786.2 ; Numbness and tingling of both legs 782.0 and Acute rhinitis 460 [facility] [address] [place] [id number] [place] [address] 19079- 1789 May, [facility] [address] [place] [id number] [place] [address] 55938- 6525 Apr, [facility] [address] 90770- 0043 Apr, Bilateral lower extremity edema 782.3 ; Lumbago 724.2 and Insomnia 780.52 [facility] [address] [place] [id number] [place] [address] 15811- 7283 Apr, [facility] [address] [place] [id number] [place] [address] 11921- 2966 Apr, [facility] [address] [place] [id number] [place] [address] 88069- 0360 March, Seborrheic keratosis 702.19 and Skin lesion of face 709.9 [facility] [address] [place] [id number] [place] [address] 93611- 5146 March, [facility] [address] [place] [id number] [place] [address] 19251- 0152 March, [facility] [address] [place] [id number] [place] [address] 50785- 4514 March, [facility] [address] [place] [id number] [place] [address] 85845- 5294 March, [facility] [address] [place] [id number] [place] [address] 85163- 4142 Feb, [facility] [address] [place] [id number] [place] [address] 08655- 8286 Feb, [facility] [address] [place] [id number] [place] [address] 64283- 2453 Jan, [facility] [address] [place] [id number] [place] [address] 73573- 4124 25 Jan, 2015 [facility] [place] [facility] [address] [id number] [place] [address]- 1576 16 Jan, 2015 [facility] [place] [facility] [address] [id number] [place] [address] 16 Jan, 2015 [facility] [place] [facility] [address] [id number] [place] [address]- 7237 16 Jan, 2015 [facility] [place] [facility] [address] [id number] [place] [address]- 7864 16 Jan, 2015 [facility] [place] [facility] [address] [id number] [place] [address]- 7072 Jan, [facility] [place] [facility] [address] [id number] [place] [address]- 8278 13 Jan, 2015 [facility] [place] [facility] [address] [id number] [place] [address]- 3437 Jan, [facility] [place] [facility] [address] [id number] [place] [address]- 3680 13 Jan, 2015 [facility] [place] [facility] [address] [id number] [place] [address]- 6179 Jan, [facility] [place] [facility] [address] [id number] [place] [address]- 2741 Dec, [facility] [place] [facility] [address] [id number] [place] [address]- 8681 Dec, 2014 [facility] [place] [facility] [address] [id number] [place] [address]- 2904 Dec, 2014 [facility] [place] [facility] [address] [id number] [place] [address]- 1480 Dec, 2014 [facility] [place] [facility] [address] [id number] [place] [address]- 1648 Dec, [facility] [place] [facility] [address] [id number] [place] [address]- 6271 Dec, [facility] [place] [facility] [address] [id number] [place] [address]- 0377 15 Nov, 2014 [facility] [place] [facility] [address] [id number] [place] [address]- 8650 15 Nov, 2014 [facility] [place] [facility] [address] [id number] [place] [address]- 7725 Nov, [facility] [place] [facility] [address] [id number] [place] [address]- 7035 Nov, [facility] [place] [facility] [address] [id number] [place] [address]- 6013 Nov, [facility] [place] [facility] [address] [id number] [place] [address]- 8357 Nov, [facility] [place] [facility] [address] [id number] [place] [address]- 8937 Nov, [facility] [place] [facility] [address] [id number] [place] [address]- 7599 Nov, [facility] [place] [facility] [address] [id number] [place] [address]- 6643 Nov, [facility] [place] [facility] [address] [id number] [place] [address]- 7656 Nov, [facility] [place] [facility] [address] [id number] [place] [address]- 7446 Nov, [facility] [place] [facility] [address] [id number] [place] [address]- 3155 Oct, [facility] [place] [facility] [address] [id number] [place] [address]- 8575 Oct, [facility] [place] [facility] [address] [id number] [place] [address]- 6582 Oct, [facility] [place] [facility] [address] [id number] [place] [address]- 2075 Oct, [facility] [place] [facility] [address] [id number], [place] [address]- 6244 Oct, [facility] [place] [facility] [address] [id number] [place] [address]- 4379 Oct, [facility] [place] [facility] [address] [id number] [place] [address]- 5274 Oct, [facility] [place] [facility] [address] [facility] [id number] [place] [address]- 0340 Oct, [facility] [place] [facility] [address] [id number] [place] [address]- 6196 Oct, [facility] [place] [facility] [address] [id number] [place] [address]- 7823 Oct, [facility] [place] [facility] [address] [id number] [place] [address]- 5299 Sep, [facility] [place] [facility] [address] [id number] [place] [address]- 0549 Sep, [facility] [place] [facility] [address] [id number], [place] [address]- 7552 Sep, [facility] [place] [facility] [address] [id number], [place] [address]- 2628 Sep, [facility] [place] [facility] [address] [id number] [place] [address]- 3284 Sep, [facility] [place] [facility] [address] [id number], [place] [address]- 6792 Sep, [facility] [place] [facility] [address] [id number], [place] [address]- 5102 Sep, [facility] [place] [facility] [address] [id number], [place] [address]- 3415 Sep, [facility] [place] [facility] [address] [id number], [place] [address]- 2427 Sep, [facility] [place] [facility] [address] [id number], [place] [address]- 6929 Sep, [facility] [place] [facility] [address] [id number] [place] [address]- 5025 Sep, [facility] [place] [facility] [address] [id number] [place] [address]- 2802 Sep, [facility] [place] [facility] [address] [id number] [place] [address]- 3732 Sep, [facility] [place] [facility] [address] [id number] [place] [address] 30 Aug, 2014 [facility] [place] [facility] [address] [id number] [place] [address] 30 Aug, 2014 [facility] [place] [facility] [address] [id number] [place] [address] 30 Aug, 2014 [facility] [place] [facility] [address] [id number] [place] [address] Aug, [facility] [place] [facility] [address] [id number] [place] [address] Aug, [facility] [place] [facility] [address] [id number] [place] [address] Aug, [facility] [place] [facility] [address] [id number] [place] [address] Aug, [facility] [place] [facility] [address] [id number] [place] [address] Aug, [facility] [place] [facility] [address] [id number] [place] [address] Aug, [facility] [place] [facility] [address] [id number] [place] [address] Aug, [facility] [place] [facility] [address] [id number] [place] [address] Aug, [facility] [place] [facility] [address] [id number] [place] [address] Aug, [facility] [place] [facility] [address] [id number] [place] [address] Aug, [facility] [place] [facility] [address] [id number] [place] [address] Aug, [facility] [place] [facility] [address] [id number] [place] [address] Aug, [facility] [place] [facility] [address] [id number] [place] [address] Aug, [facility] [place] [facility] [address] [id number] [place] [address] Aug, [facility] [place] [facility] [address] [id number] [place] [address] Aug, [facility] [place] [facility] [address] [id number] [place] [address] 30 Jul, 2013 [facility] [place] [facility] [address] [id number] [place] [address] 30 Jul, 2013 [facility] [place] [facility] [address] [id number], [place] [address] 24 Jul, 2013 [facility] [place] [facility] [address] [id number] [place] [address] 24 Jul, 2013 [facility] [place] [facility] [address] [id number], [place] [address] 23 Jul, 2013 [facility] [place] [facility] [address] [id number], [place] [address] 23 Jul, 2013 [facility] [place] [facility] [address] [id number], [place] [address] 15 Jul, 2013 [facility] [place] [facility] [address] [id number], [place] [address] 15 Jul, 2013 [facility] [address] [id number], [place] [address] 15 Jul, 2013 [facility] [address] [id number], [place] [address] 15 Jul, 2013 [facility] [address] [id number], [place] [address] Jul, [facility] [address] [facility] [id number] [place] [address] Jul, [facility] [address] [facility] [id number], [place] [address] Jul, [facility] [address] [facility] [id number] [place] [address] Jul, IMMUNIZATIONS No Known Immunizations SOCIAL HISTORY [...] r/t DDD Medical History fibromyalgia Medical History CA-stent to LAD Surgical History cholecystectomy 1983 Surgical [...] Influenza illness, hyperglycemia 2017 Hospitalization History [facility]- High BS (Pt left AMA) 01/05/2018 Hospitalization History [facility]- DKA and UTI. Discharged 01/14/2018 Hospitalization History [facility]- Nausea and Vomiting, cannot urinate 01/18/2018
--- OUTSIDE RECORDS SUMMARY | 2018-06-01 10:14 | XMS REPORT ---
Author Author KIMMIE MARCELINO Organization [facility] Address [address] [place] [address] Care Team Providers [facility] Worker Name Role Phone BURKSMARCELINO Rene Unavailable PROBLEMS Type Condition ICD9-CM Code SQS88-OS Code Onset Dates Condition Status SNOMED Code Problem DM neuro manif type II E11.49 Active 17413173 Problem Seasonal allergic rhinitis due to pollen J30.1 Active 33992946 Problem Dental caries K02.9 Active 52301557 Problem Cervicalgia M54.2 Active 08396945 Problem Alterations of sensations R20.9 Active 799717180 Problem Diabetic mononeuropathy associated with type 2 diabetes mellitus E11.41 Active 085854036 Problem Arthritis M19.90 Active 7378629 Problem Primary insomnia F51.01 Active 2461878 Problem Body mass index (BMI) of 33.0-33.9 in adult Z68.33 Active 333790875 Problem Other obesity due to excess calories E66.09 Active 272345000 Problem Fibromyalgia M79.7 Active 92676382 Problem GERD (gastroesophageal reflux disease) K21.9 Active 168141609 Problem Hyperlipidemia E78.5 Active 40071499 Problem Degenerative disc disease, lumbar M51.36 Active 97394873 Problem CAD (coronary artery disease) I25.10 Active 22510449 Problem Tobacco abuse Z72.0 Active 06494198 Problem 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 I10 Active 52953905 Problem Tobacco abuse counseling Z71.6 Active 971688960 Problem jail 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 Active 485132360 Problem Chronic pain syndrome G89.4 Active 760806822 ALLERGIES No Information ENCOUNTERS Encounter Location Date Diagnosis [facility] [address] [facility] [id number] [address] Jul, [facility] [address] [facility] [id number], [place] [address] 14 Apr, 2018 Hyperlipidemia E78.5 ; Chronic pain syndrome G89.4 ; Cervicalgia M54.2 ; DM neuro manif type II E11.49 ; gauger delivery 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 ; Nausea alone R11.0 ; 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 I10 ; GERD ( gastroesophageal reflux disease) K21.9 ; CAD (coronary artery disease) I25.10 and Diabetic mononeuropathy associated with type 2 diabetes mellitus E11.[address] [address]- [address] Apr, [place] [address] [address]73- 0[address] March, 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 I10 ; DM neuro manif type II E11.49 and GERD (gastroesophageal reflux disease) K21.9 [place] [address] 01356- 1026 March, DM neuro manif type II E11.49 and GERD (gastroesophageal reflux disease) K21.9 [place] [address] 70730- 3063 March, [place] [address] 12393- 7596 Feb, Tobacco abuse Z72.0 [place] [address] 38856- 0646 Feb, Tobacco abuse Z72.0 [place] [address] 91271- 1033 Feb, Hypokalemia E87.[address] 99798- 8490 Feb, Hyperlipidemia E78.5 ; 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 I10 ; DM neuro manif type II E11.49 ; Fibromyalgia M79.7 ; Acute non-recurrent frontal sinusitis J01.10 ; Other obesity due to excess calories E66.09 and Body mass index (BMI) of 33.0-33.9 in adult Z68.[address] 39270- 2979 Jan, Dysuria R30.0 [facility] [address] 56113- 1009 05 Jan, 2018 Dysuria R30.0 [place] [address] 12666- 8409 02 Jan, 2018 Acute cystitis with hematuria N30.01 ; DM neuro manif type II E11.49 ; gauger delivery 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 ; 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 I10 and Hospital discharge follow-up Z09 [place] [address] 85619- 8770 27 Dec, 2017 Chest pain, unspecified type R07.9 ; Dehydration E86.0 and Anuria R34 [place] [address] 60800- 4612 Dec, [place] [address] 74981- 0165 22 Dec, 2017 Hyperglycemia R73.9 ; Dehydration E86.0 and Acute cystitis with hematuria N30.01 [facility] [address] 25432 [address]257 Dec, [facility] [address] 61368 -9817 Dec, [facility] [address] 87054 -4160 Dec, [facility] [address] 64682 -3812 16 Dec, 2017 Dysuria R30.0 ; Acute cystitis with hematuria N30.01 and Weakness R53.1 [place] [address] 05649- 8548 09 Dec, 2017 [facility] [address] 62278- 8754 Nov, [place] [address] 01117- 6486 Nov, [place] [address] 89850- 7020 Nov, 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 I10 ; DM neuro manif type II E11.49 ; gauger delivery 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 ; Tobacco abuse Z72.0 ; Hyperlipidemia E78.5 ; Non-adherence to medical treatment Z91.19 ; GERD (gastroesophageal reflux disease) K21.9 ; Degenerative disc disease, lumbar M51.36 ; Fibromyalgia M79.7 ; Chronic pain syndrome G89.4 ; Dental caries K02.9 and Seasonal allergic rhinitis due to pollen J30.1 [place] [address] 24559- 6335 Nov, Alterations of sensations R20.9 [place] [address] 16329- 2494 Sep, DM neuro manif type II E11.49 ; Hyperlipidemia E78.5 ; Degenerative disc disease, lumbar M51.36 and Chronic pain syndrome G89.4 [place] [address] 70506- 2425 Sep, Arthritis M19.[address] 24715- 7430 Sep, Type 2 diabetes mellitus without complication E11.9 ; GERD ( gastroesophageal reflux disease) K21.9 ; Arthritis M19.90 and Chronic pain syndrome G89.4 [place] [address] 09400- 2687 Sep, [place] [address] 52393- 0847 Aug, [place] [address] 18486- 4619 Aug, Type 2 diabetes mellitus without complication E11.9 [place] [address] 05620- 5968 Aug, [place] [address] [address] 16 Aug, 2017 [facility] [address] [place] [id number] [place] [address] 27778- 6976 16 Aug, 2017 [facility] [address] [place] [id number] [place] [address] 21359- 5107 26 Jul, 2017 [facility] [address] [place] [id number] [place] [address] 14814 -7879 22 Jul, 2017 Acute non-recurrent frontal sinusitis J01.10 [facility] [address] [place] [id number] [place] [address] 98193- 3750 20 Jul, 2017 CAD (coronary artery disease) I25.10 and GERD ( gastroesophageal reflux disease) K21.9 [place] [address] [place] [id number] [place] [address] 20225- 2998 14 Jul, 2017 Localized swelling, mass and lump, neck R22.1 [place] [address] [place] [id number] [place] [address] 43533- 0209 06 Jul, 2017 [place] [address] [place] [id number] [place] [address] 50931- 0920 Jun, Type 2 diabetes mellitus without complication E11.9 ; Primary insomnia F51.01 ; Alterations of sensations R20.9 ; Hyperlipidemia E78.5 ; GERD (gastroesophageal reflux disease) K21.9 ; 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 I10 ; jail 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 ; Tobacco abuse Z72.0 ; Tobacco abuse counseling Z71.6 and CAD (coronary artery disease) I25.10 [facility] [id number] [place] [address] 29391- 7639 May, [place] [address] [place] [id number] [place] [address] 26180- 4641 May, Type 2 diabetes mellitus without complication E11.9 [place] [id number] [place] [address] 60891- 0414 May, [place] [address] [place] [id number] [place] [address] 83992- 3814 March, [facility] [address] [place] [id number] [place] [address] 96136- 4348 Feb, [facility] [address] 02871 -2036 Jan, Acute suppurative otitis media of left ear with spontaneous rupture of tympanic membrane, recurrence not specified H66.012 [place] [address] 68113- 8170 Dec, Type 2 diabetes mellitus without complication E11.9 ; Lumbago M54.5 ; Cervicalgia M54.2 ; Hyperlipidemia E78.5 ; GERD ( gastroesophageal reflux disease) K21.9 ; Chronic pain syndrome G89.4 ; Dysuria R30.0 and 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 I10 [place] [address] 35522- 8415 Oct, [place] [address] 02301- 6739 Sep, Diabetic mononeuropathy associated with type 2 diabetes mellitus E11.41 and Coughing R05 [place] [address] 63701- 2641 Sep, Diabetic mononeuropathy associated with type 2 diabetes mellitus E11.41 and Coughing R05 [place] [address] [place] [id number] [place] [address] 59689- 7218 Sep, Onychomycosis B35.1 ; Neuritis M79.2 and Type 2 diabetes mellitus without complication E11.9 [place] [address] [place] [id number] [place] [address] 39789- 6247 Sep, [place] [address] 91960- 9351 Sep, Cough R05 ; Seasonal allergic rhinitis due to pollen J30.1 and Acute upper respiratory infection, unspecified J06.9 [place] [address] 16186- 9009 Sep, [place] [address] [place] [id number] [place] [address] 49953- 2828 Aug, [place] [address] 50541- 1305 Jul, Type 2 diabetes mellitus without complication E11.9 ; Chronic pain G89.29 ; 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 I10 and Acute non-recurrent maxillary sinusitis J01.[address] 15643- 2110 Jul, Chronic pain syndrome G89.4 ; Lumbago M54.5 and Cervicalgia M54.[address] 49874- 1369 Jul, [address] 51649- 5915 Jul, [address] 44844- 8460 Jun, Onychomycosis B35.1 ; Onychocryptosis L60.0 and DM neuro manif type II E11.49 [place] [id number] [place] [address] 30953- 1846 Jun, Type 2 diabetes mellitus without complication E11.9 ; Pain in unspecified hip M25.559 ; Other chronic pain G89.29 ; Lumbago M54.5 ; Chronic pain G89.29 ; Insomnia, unspecified G47.00 ; GERD (gastroesophageal reflux disease) K21.9 and Dental caries K02.9 [place] [id number] [place] [address] 96236- 3418 Jun, Type 2 diabetes mellitus without complication E11.9 ; Lumbago M54.5 ; Chronic pain G89.29 ; Insomnia, unspecified G47.00 ; GERD ( gastroesophageal reflux disease) K21.9 ; Dental caries K02.9 ; Pain in unspecified hip M25.559 and Other chronic pain G89.29 [address] [place] [address] 40637- 8611 May, [address] 39816- 2668 May, Type 2 diabetes mellitus without complication E11.9 ; 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 I10 ; Chronic pain syndrome G89.4 ; Other seasonal allergic rhinitis J30.2 and Insomnia, unspecified G47.00 [place] [address] 55460- 3536 Apr, [address] 24412- 5876 Apr, Hypertension I10 and Chronic pain G89.[address] 44930- 8270 March, Onychomycosis B35.1 ; Onychocryptosis L60.0 and Type 2 diabetes mellitus without complication E11.9 [place] [address] [place] [id number] [place] [address] 34299- 8658 March, Type 2 diabetes mellitus without complication E11.9 ; 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 I10 ; Alterations of sensations R20.9 ; Chronic pain syndrome G89.4 ; Tobacco abuse Z72.0 and Tobacco abuse counseling Z71.6 [place] [id number] [place] [address] 44577- 9537 Feb, Cough R05 ; Type 2 diabetes mellitus without complication E11.9 ; Tobacco abuse counseling Z71.6 and Chronic pain G89.29 [place] [address] [place] [id number] [place] [address] 41315- 1574 Feb, [address] 22307- 1802 Feb, Type 2 diabetes mellitus without complication E11.9 ; Lumbago M54.5 ; Cervicalgia M54.2 ; Degenerative disc disease, lumbar M51.36 and Numbness and tingling of both legs 782.0 [facility] [address] [place] [id number] [place] [address] [id number] Jan, Dental caries K02.9 and Encounter for dental examination Z01.20 [place] [address] 49568- 7279 Jan, Type 2 diabetes mellitus without complication E11.9 [place] [address] 63981- 7472 Jan, Type 2 diabetes mellitus without complication E11.9 ; Numbness and tingling of both legs 782.0 ; Fibromyalgia M79.7 ; Hyperlipidemia E78.5 ; Lumbago M54.5 ; Cervicalgia M54.2 ; Hypertension I10 ; CAD (coronary artery disease) I25.10 ; Tobacco abuse Z72.0 ; Tobacco abuse counseling Z71.6 and GERD (gastroesophageal reflux disease) K21.9 [place] [address] 60510- 8357 Jan, [place] [address] 59545- 6074 Dec, [facility] [address] [id number] Dec, Dental examination Z01.20 and Dental caries K02.9 [place] [address] 40276- 2564 Dec, Edema R60.9 ; Type 2 diabetes mellitus without complication E11.9 ; Hypertension I10 and Mouth pain K13.79 [place] [address] 24736- 2242 Dec, Degenerative disc disease, lumbar M51.36 [place] [address] 29619- 4931 Dec, [place] [address] 40227- 1291 Nov, Insomnia, unspecified G47.00 [place] [address] 70438- 5255 Nov, Type 2 diabetes mellitus without complication E11.9 ; Lumbago M54.5 ; Degenerative disc disease, lumbar M51.36 ; Fibromyalgia M79.7 ; Coronary artery disease I25.10 ; Hyperlipidemia E78.5 ; Controlled substance agreement signed Z79.899 ; Dysuria R30.0 ; Insomnia, unspecified G47.00 ; GERD ( gastroesophageal reflux disease) K21.9 ; Hypertension 401.9 and gauger delivery 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 [place] [address] 15138- 4825 Nov, [place] [address] 99072- 9902 Oct, Degenerative disc disease, lumbar M51.36 ; Cervicalgia M54.2 ; Insomnia, unspecified G47.00 ; Decreased GFR R94.4 and GERD ( gastroesophageal reflux disease) K21.9 [place] [address] 86992- 0822 Oct, Lumbago M54.5 [place] [address] 64853- 9780 Oct, Low back pain M54.5 [place] [address] 92178- 4287 Oct, [place] [address] 81189- 5267 Oct, Disorientation R41.0 [place] [address] 69552- 2321 Oct, Type 2 diabetes mellitus without complication E11.9 ; Disorientation R41.0 and Chest pain R07.9 [place] [address] 43816- 7797 Oct, [place] [address] 83437- 4028 Sep, Low back pain M54.5 [place] [address] 17100- 2012 Sep, Insomnia, unspecified G47.00 [facility] [address] 89694- 7347 Aug, Degenerative disc disease, lumbar M51.36 ; Type 2 diabetes mellitus without complication E11.9 and Encounter for immunization Z23 [facility] [address] [place] [id number] [place] [address] 57115- 2950 Aug, [facility] [address] 51489- 7359 Aug, [facility] [address] 44909- 5719 Aug, [facility] [address] 13736- 5776 Jul, [facility] [address] 36858- 1006 Jun, [facility] [address] [place] [id number] [place] [address] 78017- 4136 Jun, Chest pain 786.50 and Lumbago 724.2 [facility] [address] 78152- 9896 Jun, [facility] [address] [place] [id number] [place] [address] 28332- 1367 Jun, [facility] [address] [place] [id number] [place] [address] [id number] Jun, Dental examination V72.2 [facility] [address] [place] [id number] [place] [address] 08605- 2183 Jun, [facility] [address] 49285- 8682 May, Left shoulder pain 719.41 and Numbness and tingling of both legs 782.0 [facility] [address] [place] [id number] [place] [address] 76801- 9942 May, Cough 786.2 ; Numbness and tingling of both legs 782.0 and Acute rhinitis 460 [facility] [address] [place] [id number] [place] [address] 38851- 7649 May, [facility] [address] [place] [id number] [place] [address] 26891- 1003 Apr, [facility] [address] 15135- 0029 Apr, Bilateral lower extremity edema 782.3 ; Lumbago 724.2 and Insomnia 780.52 [facility] [address] [place] [id number] [place] [address] 19896- 5062 Apr, [facility] [address] [place] [id number] [place] [address] 16826- 4973 Apr, [facility] [address] [place] [id number] [place] [address] 06000- 6450 March, Seborrheic keratosis 702.19 and Skin lesion of face 709.9 [facility] [address] [place] [id number] [place] [address] 07446- 1903 March, [facility] [address] [place] [id number] [place] [address] 69057- 7249 March, [facility] [address] [place] [id number] [place] [address] 42202- 1615 March, [facility] [address] [place] [id number] [place] [address] 34588- 8351 March, [facility] [address] [place] [id number] [place] [address] 77421- 5278 Feb, [facility] [address] [place] [id number] [place] [address] 84226- 0233 Feb, [facility] [address] [place] [id number] [place] [address] 99823- 7600 Jan, [facility] [address] [id number] [place] [address] 12326- 9877 25 Jan, 2015 [facility] [place] [facility] [address] [id number] [place] [address]- 8387 16 Jan, 2015 [facility] [place] [facility] [address] [id number] [place] [address]24 16 Jan, 2015 [facility] [place] [facility] [address] [id number] [place] [address]- 5906 16 Jan, 2015 [facility] [place] [facility] [address] [id number] [place] [address]- 6678 16 Jan, 2015 [facility] [place] [facility] [address] [id number] [place] [address]- 1999 Jan, [facility] [place] [facility] [address] [id number] [place] [address]- 3649 13 Jan, 2015 [facility] [place] [facility] [address] [id number] [place] [address]- 9090 Jan, [facility] [place] [facility] [address] [id number] [place] [address]- 5464 13 Jan, 2015 [facility] [place] [facility] [address] [id number] [place] [address]- 2918 Jan, [facility] [place] [facility] [address] [id number] [place] [address]- 9709 Dec, [facility] [place] [facility] [address] [id number] [place] [address]- 2573 Dec, 2014 [facility] [place] [facility] [address] [id number] [place] [address]- 2904 Dec, 2014 [facility] [place] [facility] [address] [id number] [place] [address]- 8827 Dec, 2014 [facility] [place] [facility] [address] [id number] [place] [address]- 3933 Dec, [facility] [place] [facility] [address] [id number] [place] [address]- 4861 Dec, [facility] [place] [facility] [address] [id number] [place] [address]- 2131 15 Nov, 2014 [facility] [place] [facility] [address] [id number] [place] [address]- 3272 15 Nov, 2014 [facility] [place] [facility] [address] [id number] [place] [address]- 2865 Nov, [facility] [place] [facility] [address] [id number] [place] [address]- 0585 Nov, [facility] [place] [facility] [address] [id number] [place] [address]- 7060 Nov, [facility] [place] [facility] [address] [id number] [place] [address]- 7461 Nov, [facility] [place] [facility] [address] [id number] [place] [address]- 8089 Nov, [facility] [place] [facility] [address] [id number] [place] [address]- 5339 Nov, [facility] [place] [facility] [address] [id number] [place] [address]- 0026 Nov, [facility] [place] [facility] [address] [id number] [place] [address]- 5598 Nov, [facility] [place] [facility] [address] [id number] [place] [address]- 9358 Nov, [facility] [place] [facility] [address] [id number] [place] [address]- 2144 Oct, [facility] [place] [facility] [address] [id number] [place] [address]- 2966 Oct, [facility] [place] [facility] [address] [id number] [place] [address]- 4144 Oct, [facility] [place] [facility] [address] [id number] [place] [address]- 0832 Oct, [facility] [place] [facility] [address] [id number], [place] [address]- 9666 Oct, [facility] [place] [facility] [address] [id number] [place] [address]- 8070 Oct, [facility] [place] [facility] [address] [id number] [place] [address]- 3157 Oct, [facility] [place] [facility] [address] [facility] [id number] [place] [address]- 9666 Oct, [facility] [place] [facility] [address] [id number] [place] [address]- 1920 Oct, [facility] [place] [facility] [address] [id number] [place] [address]- 7507 Oct, [facility] [place] [facility] [address] [id number] [place] [address]- 6326 Sep, [facility] [place] [facility] [address] [id number] [place] [address]- 1106 Sep, [facility] [place] [facility] [address] [id number], [place] [address]- 8823 Sep, [facility] [place] [facility] [address] [id number], [place] [address]- 6023 Sep, [facility] [place] [facility] [address] [id number] [place] [address]- 4909 Sep, [facility] [place] [facility] [address] [id number], [place] [address]- 6784 Sep, [facility] [place] [facility] [address] [id number], [place] [address]- 3570 Sep, [facility] [place] [facility] [address] [id number], [place] [address]- 8435 Sep, [facility] [place] [facility] [address] [id number], [place] [address]- 2622 Sep, [facility] [place] [facility] [address] [id number], [place] [address]- 1448 Sep, [facility] [place] [facility] [address] [id number] [place] [address]- 2851 Sep, [facility] [place] [facility] [address] [id number] [place] [address]- 4721 Sep, [facility] [place] [facility] [address] [id number] [place] [address]- 7494 Sep, [facility] [place] [facility] [address] [id number] [place] [address] 30 Aug, 2014 [facility] [place] [facility] [address] [id number] [place] [address] 30 Aug, 2014 [facility] [place] [facility] [address] [id number] [place] [address] 30 Aug, 2014 [facility] [place] [facility] [address] [id number] [place] [address] Aug, [facility] [place] [facility] [address] [id number] [place] [address] Aug, [facility] [place] [facility] [address] [id number] [place] [address] Aug, [facility] [place] [facility] [address] [id number] [place] [address] Aug, [facility] [place] [facility] [address] [id number] [place] [address] Aug, [facility] [place] [facility] [address] [id number] [place] [address] Aug, [facility] [place] [facility] [address] [id number] [place] [address] Aug, [facility] [place] [facility] [address] [id number] [place] [address] Aug, [facility] [place] [facility] [address] [id number] [place] [address] Aug, [facility] [place] [facility] [address] [id number] [place] [address] Aug, [facility] [place] [facility] [address] [id number] [place] [address] Aug, [facility] [place] [facility] [address] [id number] [place] [address] Aug, [facility] [place] [facility] [address] [id number] [place] [address] Aug, [facility] [place] [facility] [address] [id number] [place] [address] Aug, [facility] [place] [facility] [address] [id number] [place] [address] Aug, [facility] [place] [facility] [address] [id number] [place] [address] 30 Jul, 2013 [facility] [place] [facility] [address] [id number] [place] [address] 30 Jul, 2013 [facility] [place] [facility] [address] [id number], [place] [address] 24 Jul, 2013 [facility] [place] [facility] [address] [id number] [place] [address] 24 Jul, 2013 [facility] [place] [facility] [address] [id number], [place] [address] 23 Jul, 2013 [facility] [place] [facility] [address] [id number], [place] [address] 23 Jul, 2013 [facility] [place] [facility] [address] [id number][place] [address] 15 Jul, 2013 [facility] [place] [facility] [address] [id number], [place] [address] 15 Jul, 2013 [facility] [place] [facility] [address] [id number] [id number] 15 Jul, 2013 [facility] [address] [id number], [place] [address] 15 Jul, 2013 [facility] [address] [id number], [place] [address] Jul, [facility] [address] [facility] [id number] [place] [address] Jul, [facility] [address] [facility] [id number], [place] [address] Jul, [facility] [address] [facility] [id number] [place] [address] Jul, IMMUNIZATIONS No Known Immunizations SOCIAL HISTORY Never Assessed REASON FOR VISIT Request referral PLAN OF CARE VITAL SIGNS MEDICATIONS Unknown [...] r/t DDD Medical History fibromyalgia Medical History [place]-stent to LAD Surgical History cholecystectomy 1983 Surgical [...] Influenza illness, hyperglycemia 2017 Hospitalization History [facility]- High BS (Pt left AMA) 01/05/2018 Hospitalization History [facility]- DKA and UTI. Discharged 01/14/2018 Hospitalization History [facility]- Nausea and Vomiting, cannot urinate 01/18/2018
--- OUTSIDE RECORDS SUMMARY | 2018-06-01 10:14 | XMS REPORT ---
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 Name Role Phone MARCELINO BURKS Unavailable PROBLEMS Type Condition ICD9-CM Code UMW33-IB Code Onset Dates Condition Status SNOMED Code Problem Tobacco abuse counseling Z71.6 Active 192376629 Problem DM neuro manif type II E11.49 Active 02867118 Problem Chronic pain syndrome G89.4 Active 284695737 Problem Other obesity due to excess calories E66.09 Active 738277021 Problem Body mass index (BMI) of 33.0-33.9 in adult Z68.33 Active 735451481 Problem Seasonal allergic rhinitis due to pollen J30.1 Active 61853983 Problem Dental caries K02.9 Active 84244672 Problem Arthritis M19.90 Active 9142098 Problem Primary insomnia F51.01 Active 3315455 Problem Hyperlipidemia E78.5 Active 00661155 Problem Degenerative disc disease, lumbar M51.36 Active 64270939 Problem Alterations of sensations R20.9 Active 870045278 Problem nursing home 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 Active 786541776 Problem 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 I10 Active 44839292 Problem Fibromyalgia M79.7 Active 53930259 Problem CAD (coronary artery disease) I25.10 Active 32825921 Problem GERD (gastroesophageal reflux disease) K21.9 Active 963842597 Problem Tobacco abuse Z72.0 Active 80137402 ALLERGIES Substance Reaction Event Type Date Status Zofran Unknown Drug Allergy Jul, Active Reglan restless leg; anything in reglan family Drug Allergy Jul, Active Toradol Unknown Drug Allergy Jul, Active LATEX Unknown Non Drug Allergy Jul, Active ENCOUNTERS Encounter Location Date Diagnosis [facility] [address] [facility] [id number] [address] Feb, Tobacco abuse Z72.0 [facility] [address] [address]- [address] Feb, Tobacco abuse Z72.0 [place] [address] 26214- 8672 Feb, Hypokalemia E87.6 [place] [address] 07761- 3801 Feb, Hyperlipidemia E78.5 ; 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 I10 ; DM neuro manif type II E11.49 ; Fibromyalgia M79.7 ; Acute non-recurrent frontal sinusitis J01.10 ; Other obesity due to excess calories E66.09 and Body mass index (BMI) of 33.0-33.9 in adult Z68.33 [place] [address] 63842- 7990 Jan, Dysuria R30.0 [place] [address] 49341- 0755 Jan, Dysuria R30.0 [place] [address] 80155- 4558 Jan, Acute cystitis with hematuria N30.01 ; DM neuro manif type II E11.49 ; nursing home 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 ; 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 I10 and Hospital discharge follow-up Z09 [place] [address] 8[address]99- 4574 27 Dec, 2017 Chest pain, unspecified type R07.9 ; Dehydration E86.0 and Anuria R34 [place] [address] 81366- 4572 Dec, [place] [address] 05756- 0146 Dec, Hyperglycemia R73.9 ; Dehydration E86.0 and Acute cystitis with hematuria N30.01 [facility] [address] [address] Dec, [facility] [id number] [place] [address] 50811 -5588 Dec, [facility] [address] [place] [id number] [place] [address] 55056 -0855 Dec, [facility] [id number] [place] [address] 27218 -1762 16 Dec, 2017 Dysuria R30.0 ; Acute cystitis with hematuria N30.01 and Weakness R53.1 [place] [address] [place] [id number] [place] [address] 07135- 5088 Dec, [place] [address] 76061- 3348 Nov, [place] [address] [place] [id number] [place] [address] 31075- 0117 Nov, [place] [address] [place] [id number] [place] [address] 96506- 7856 Nov, 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 I10 ; DM neuro manif type II E11.49 ; 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 ; Tobacco abuse Z72.0 ; Hyperlipidemia E78.5 ; Non-adherence to medical treatment Z91.19 ; GERD (gastroesophageal reflux disease) K21.9 ; Degenerative disc disease, lumbar M51.36 ; Fibromyalgia M79.7 ; Chronic pain syndrome G89.4 ; Dental caries K02.9 and Seasonal allergic rhinitis due to pollen J30.1 [place] [address] [place] [id number] [place] [address] 98562- 7984 Nov, Alterations of sensations R20.9 [place] [id number] [place] [address] 34772- 5408 Sep, DM neuro manif type II E11.49 ; Hyperlipidemia E78.5 ; Degenerative disc disease, lumbar M51.36 and Chronic pain syndrome G89.4 [place] [address] [place] [id number] [place] [address] 70966- 5296 Sep, Arthritis M19.[address] [place] [address]- 1067 Sep, Type 2 diabetes mellitus without complication E11.9 ; GERD ( gastroesophageal reflux disease) K21.9 ; Arthritis M19.90 and Chronic pain syndrome G89.4 [facility] [id number] [place] [address] 45007- 1732 Sep, [facility] [address] 49225- 9072 Aug, [facility] [address] 92870- 9892 Aug, Type 2 diabetes mellitus without complication E11.9 [facility] [address] 30309- 4496 Aug, [facility] [address] 21699- 9579 Aug, [facility] [address] 53274- 8230 Aug, [facility] [address] [id number] [place] [address] 95209- 4051 Jul, [facility] [id number] [place] [address] 15290 -4027 22 Jul, 2017 Acute non-recurrent frontal sinusitis J01.10 [facility] [id number] [place] [address] 62049- 9056 20 Jul, 2017 CAD (coronary artery disease) I25.10 and GERD ( gastroesophageal reflux disease) K21.9 [facility] [address] [place] [id number] [place] [address] 93526- 7058 14 Jul, 2017 Localized swelling, mass and lump, neck R22.1 [facility] [address] [id number] [place] [address] 76582- 7315 06 Jul, 2017 [facility] [id number] [place] [address] 72926- 9873 Jun, Type 2 diabetes mellitus without complication E11.9 ; Primary insomnia F51.01 ; Alterations of sensations R20.9 ; Hyperlipidemia E78.5 ; GERD (gastroesophageal reflux disease) K21.9 ; 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 I10 ; 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 ; Tobacco abuse Z72.0 ; Tobacco abuse counseling Z71.6 and CAD (coronary artery disease) I25.10 [facility] [address] 71445- 8976 May, [place] [address] 25380- 1055 May, Type 2 diabetes mellitus without complication E11.9 [place] [address] 79745- 8982 May, [place] [address] 18531- 0163 March, [place] [address] 33195- 7942 Feb, [facility] [address] 45379 -0228 Jan, Acute suppurative otitis media of left ear with spontaneous rupture of tympanic membrane, recurrence not specified H66.012 [place] [address] [place] [id number] [place] [address] 09597- 2930 Dec, Type 2 diabetes mellitus without complication E11.9 ; Lumbago M54.5 ; Cervicalgia M54.2 ; Hyperlipidemia E78.5 ; GERD ( gastroesophageal reflux disease) K21.9 ; Chronic pain syndrome G89.4 ; Dysuria R30.0 and 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 I10 [place] [address] [place] [id number] [place] [address] 80768- 1423 Oct, [address] 25843- 2629 Sep, Diabetic mononeuropathy associated with type 2 diabetes mellitus E11.41 and Coughing R05 [place] [address] 11852- 8788 Sep, Diabetic mononeuropathy associated with type 2 diabetes mellitus E11.41 and Coughing R05 [place] [address] 11237- 1366 18 Sep, 2016 Onychomycosis B35.1 ; Neuritis M79.2 and Type 2 diabetes mellitus without complication E11.9 [place] [address] 83143- 1539 14 Sep, 2016 [place] [address] 56347- 7965 03 Sep, 2016 Cough R05 ; Seasonal allergic rhinitis due to pollen J30.1 and Acute upper respiratory infection, unspecified J06.9 [place] [address] 07501- 7746 Sep, [place] [address] 50010- 5901 Aug, [place] [address] 31976- 3394 13 Jul, 2016 Type 2 diabetes mellitus without complication E11.9 ; Chronic pain G89.29 ; 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 I10 and Acute non-recurrent maxillary sinusitis J01.00 [place] [address] [place] [id number] [place] [address] 54598- 9224 02 Jul, 2016 Chronic pain syndrome G89.4 ; Lumbago M54.5 and Cervicalgia M54.2 [place] [address] [id number] [place] [address] 61604- 4427 Jul, [place] [address] 74268- 7593 Jul, [place] [address] 65898- 6205 Jun, Onychomycosis B35.1 ; Onychocryptosis L60.0 and DM neuro manif type II E11.49 [place] [address] [place] [id number] [place] [address] 84968- 6040 Jun, Type 2 diabetes mellitus without complication E11.9 ; Pain in unspecified hip M25.559 ; Other chronic pain G89.29 ; Lumbago M54.5 ; Chronic pain G89.29 ; Insomnia, unspecified G47.00 ; GERD (gastroesophageal reflux disease) K21.9 and Dental caries K02.[address] 09404- 2934 Jun, Type 2 diabetes mellitus without complication E11.9 ; Lumbago M54.5 ; Chronic pain G89.29 ; Insomnia, unspecified G47.00 ; GERD ( gastroesophageal reflux disease) K21.9 ; Dental caries K02.9 ; Pain in unspecified hip M25.559 and Other chronic pain G89.29 [place] [id number] [place] [address] 87643- 8712 May, [address] 36454- 8121 May, Type 2 diabetes mellitus without complication E11.9 ; 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 I10 ; Chronic pain syndrome G89.4 ; Other seasonal allergic rhinitis J30.2 and Insomnia, unspecified G47.00 [place] [address] [place] [id number] [place] [address] 24435- 0551 Apr, [place] [id number] [place] [address] 54154- 3640 Apr, Hypertension I10 and Chronic pain G89.[address] 90081- 1546 March, Onychomycosis B35.1 ; Onychocryptosis L60.0 and Type 2 diabetes mellitus without complication E11.[address] 66362- 7124 March, Type 2 diabetes mellitus without complication E11.9 ; 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 I10 ; Alterations of sensations R20.9 ; Chronic pain syndrome G89.4 ; Tobacco abuse Z72.0 and Tobacco abuse counseling Z71.6 [place] [address] [place] [id number] [place] [address] 48985- 1614 Feb, Cough R05 ; Tobacco abuse counseling Z71.6 ; Chronic pain G89.29 and Type 2 diabetes mellitus without complication E11.9 [place] [address] [place] [id number] [place] [address] 47051- 0125 Feb, [place] [address] 57231- 1323 Feb, Type 2 diabetes mellitus without complication E11.9 ; Lumbago M54.5 ; Cervicalgia M54.2 ; Degenerative disc disease, lumbar M51.36 and Numbness and tingling of both legs 782.0 [facility] [id number] [place] [address] [id number] Jan, Dental caries K02.9 and Encounter for dental examination Z01.[address] 77143- 1212 Jan, Type 2 diabetes mellitus without complication E11.9 [place] [address] [place] [id number] [place] [address] 77793- 8430 Jan, Type 2 diabetes mellitus without complication E11.9 ; Numbness and tingling of both legs 782.0 ; Fibromyalgia M79.7 ; Hyperlipidemia E78.5 ; Lumbago M54.5 ; Cervicalgia M54.2 ; Hypertension I10 ; CAD (coronary artery disease) I25.10 ; Tobacco abuse Z72.0 ; Tobacco abuse counseling Z71.6 and GERD (gastroesophageal reflux disease) K21.9 [place] [address] [place] [id number] [place] [address] 94605- 6221 Jan, [place] [address] 94285- 0877 Dec, [facility] [address] [place] [id number] [place] [address] [id number] Dec, Dental examination Z01.20 and Dental caries K02.9 [place] [address] [place] [id number] [place] [address] 79147- 0878 Dec, Edema R60.9 ; Type 2 diabetes mellitus without complication E11.9 ; Hypertension I10 and Mouth pain K13.79 [place] [address] 21139- 3246 Dec, Degenerative disc disease, lumbar M51.36 [place] [address] 44168- 2116 Dec, [place] [address] 37771- 2766 Nov, Insomnia, unspecified G47.00 [place] [address] 46724- 5006 Nov, Type 2 diabetes mellitus without complication E11.9 ; Lumbago M54.5 ; Degenerative disc disease, lumbar M51.36 ; Fibromyalgia M79.7 ; Coronary artery disease I25.10 ; Hyperlipidemia E78.5 ; Controlled substance agreement signed Z79.899 ; Dysuria R30.0 ; Insomnia, unspecified G47.00 ; GERD ( gastroesophageal reflux disease) K21.9 ; Hypertension 401.9 and nursing home 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 [place] [address] [place] [id number] [place] [address] 70388- 1685 Nov, [place] [address] [place] [id number] [place] [address] 53572- 5737 Oct, Degenerative disc disease, lumbar M51.36 ; Cervicalgia M54.2 ; Insomnia, unspecified G47.00 ; Decreased GFR R94.4 and GERD ( gastroesophageal reflux disease) K21.9 [place] [address] 44250- 6265 Oct, Lumbago M54.5 [place] [address] [place] [id number] [place] [address] 12939- 9596 Oct, Low back pain M54.5 [place] [address] 14605- 0875 Oct, [facility] [address] [place] [id number] [place] [address] 37854- 9781 Oct, Disorientation R41.0 [facility] [address] [place] [id number] [place] [address] 12664- 9740 Oct, Type 2 diabetes mellitus without complication E11.9 ; Disorientation R41.0 and Chest pain R07.9 [facility] [address] [place] [id number] [place] [address] 37122- 9063 Oct, [facility] [address] [place] [id number] [place] [address] 48559- 9638 Sep, Low back pain M54.5 [facility] [address] [place] [id number] [place] [address] 68627- 5173 Sep, Insomnia, unspecified G47.00 [place] [address] 06740- 0800 Aug, Degenerative disc disease, lumbar M51.36 ; Type 2 diabetes mellitus without complication E11.9 and Encounter for immunization Z23 [place] [address] [place] [id number] [place] [address] 40694- 5221 Aug, [facility] [address] [id number] [place] [address] 37210- 4994 Aug, [facility] [address] [id number] [place] [address] 66570- 3791 Aug, [facility] [address] [id number] [place] [address] 59279- 0520 Jul, [facility] [address] [id number] [place] [address] 23777- 2474 Jun, [facility] [address] [id number] [place] [address] 88701- 3628 Jun, Chest pain 786.50 and Lumbago 724.2 [facility] [address] [id number] [place] [address] 00904- 2416 Jun, [facility] [id number] [place] [address] 31090- 4040 Jun, [facility] [address] [place] [address] [id number] Jun, Dental examination V72.2 [facility] [id number] [place] [address] 10177- 8095 Jun, [facility] [address] [place] [id number] [place] [address] 00154- 3002 May, Left shoulder pain 719.41 and Numbness and tingling of both legs 782.0 [facility] [address] [id number] [place] [address] 09158- 0746 May, Cough 786.2 ; Numbness and tingling of both legs 782.0 and Acute rhinitis 460 [facility] [address] [place] [id number] [place] [address] 87395- 5108 May, [facility] [address] [id number] [place] [address] 86217- 6882 Apr, [facility] [address] [place] [id number] [place] [address] 69666- 2109 Apr, Bilateral lower extremity edema 782.3 ; Lumbago 724.2 and Insomnia 780.52 [facility] [address] [id number] [place] [address] 30906- 0155 Apr, [facility] [address] [id number] [place] [address] 41930- 5810 Apr, [facility] [address] [id number] [place] [address] 78268- 2652 March, Seborrheic keratosis 702.19 and Skin lesion of face 709.9 [facility] [id number] [place] [address] 00405- 2197 March, [facility] [address] [id number] [place] [address] 19734- 7227 March, [facility] [place] [facility] [address] [id number] [place] [address]- 7839 March, [facility] [place] [facility] [address] [id number] [place] [address]- 5446 March, [facility] [place] [facility] [address] [facility] [id number] [place] [address]- 9228 Feb, [facility] [place] [facility] [address] [id number] [place] [address]- 4577 Feb, [facility] [place] [facility] [address] [id number] [place] [address]- 9164 Jan, [facility] [place] [facility] [address] [id number] [place] [address]- 2773 25 Jan, 2015 [facility] [place] [facility] [address] [facility] [id number] [place] [address]- 4796 16 Jan, 2015 [facility] [place] [facility] [address] [id number] [place] [address]- 1943 16 Jan, 2015 [facility] [place] [facility] [address] [id number] [place] [address]- 0821 16 Jan, 2015 [facility] [place] [facility] [address] [facility] [id number] [place] [address]- 2991 16 Jan, 2015 [facility] [place] [facility] [address] [id number] [place] [address]- 5163 13 Jan, 2015 [facility] [place] [facility] [address] [id number] [place] [address]- 4899 13 Jan, 2015 [facility] [place] [facility] [address] [id number] [place] [address]- 9835 13 Jan, 2015 [facility] [place] [facility] [address] [id number] [place] [address]- 3211 13 Jan, 2015 [facility] [place] [facility] [address] [facility] [id number] [place] [address]- 3698 10 Jan, 2015 [facility] [place] [facility] [address] [id number] [place] [address]- 4567 Dec, [facility] [place] [facility] [address] [id number] [place] [address]- 3994 Dec, [facility] [place] [facility] [address] [id number] [place] [address]- 9198 Dec, [facility] [place] [facility] [address] [id number] [place] [address]- 9066 Dec, [facility] [place] [facility] [address] [id number] [place] [address]- 9325 Dec, [facility] [place] [facility] [address] [id number] [place] [address]- 7977 Dec, [facility] [place] [facility] [address] [id number] [place] [address]- 0498 Nov, [facility] [place] [facility] [address] [id number] [place] [address]- 7065 Nov, [facility] [place] [facility] [address] [id number] [place] [address]- 2487 Nov, [facility] [place] [facility] [address] [id number] [place] [address]- 0397 Nov, [facility] [place] [facility] [address] [id number] [place] [address]- 1205 Nov, [facility] [place] [facility] [address] [id number], [place] [address]- 0221 Nov, [facility] [place] [facility] [address] [id number] [place] [address]- 1768 Nov, [facility] [place] [facility] [address] [id number] [place] [address]- 5596 Nov, [facility] [place] [facility] [address] [id number], [place] [address]- 5750 Nov, [facility] [place] [facility] [address] [id number], [place] [address]- 6746 Nov, [facility] [place] [facility] [address] [id number] [place] [address]- 4657 Nov, [facility] [place] [facility] [address] [id number] [place] 9433 Oct, [facility] [place] [facility] [address] [id number] [place] [address]- 7160 Oct, [facility] [place] [facility] [address] [id number] [place] [address]- 4536 Oct, [facility] [place] [facility] [address] [id number] [place] [address]- 4551 Oct, [facility] [place] [facility] [address] [id number] [place] [address]- 2170 Oct, [facility] [place] [facility] [address] [id number] [place] [address]- 2641 Oct, [facility] [place] [facility] [address] [id number] [place] [address]- 8385 Oct, [facility] [place] [facility] [address] [id number] [place] [address]- 8539 Oct, [facility] [place] [facility] [address] [id number] [place] [address]- 4093 Oct, [facility] [place] [facility] [address] [id number] [place] [address]- 2949 Oct, [facility] [place] [facility] [address] [id number] [place] [address]- 2522 Sep, [facility] [place] [facility] [address] [id number] [place] [address]- 1852 Sep, [facility] [place] [facility] [address] [id number] [place] [address]- 1524 Sep, [facility] [place] [facility] [address] [id number] [place] [address]- 8949 Sep, [facility] [place] [facility] [address] [id number] [place] [address] 18 Sep, 2014 [facility] [place] [facility] [address] [id number] [place] [address] 18 Sep, 2014 [facility] [place] [facility] [address] [id number] [place] [address] 18 Sep, 2014 [facility] [place] [facility] [address] [id number] [place] [address] Sep, [facility] [place] [facility] [address] [id number] [place] [address] Sep, [facility] [place] [facility] [address] [id number] [place] [address] 17 Sep, 2014 [facility] [place] [facility] [address] [id number] [place] [address] Sep, [facility] [place] [facility] [address] [id number] [place] [address] Sep, [facility] [place] [facility] [address] [id number] [place] [address] Sep, [facility] [place] [facility] [address] [id number] [place] [address] Aug, [facility] [place] [facility] [address] [id number] [place] [address] 30 Aug, 2014 [facility] [place] [facility] [address] [id number] [place] [address] 30 Aug, 2014 [facility] [place] [facility] [address] [id number] [place] [address] 30 Aug, 2014 [facility] [place] [facility] [address] [id number] [place] [address] Aug, [facility] [place] [facility] [address] [id number] [place] [address] Aug, [facility] [place] [facility] [address] [id number] [place] [address] Aug, [facility] [place] [facility] [address] [id number] [place] [address] Aug, [facility] [place] [facility] [address] [id number] [place] [address] Aug, [facility] [place] [facility] [address] [id number] [place] [address] Aug, [facility] [place] [facility] [address] [id number] [place] [address] Aug, [facility] [place] [facility] [address] [id number] [place] [address] Aug, [facility] [place] [facility] [address] [id number] [place] [address] Aug, [facility] [place] [facility] [address] [id number] [place] [address] Aug, [facility] [place] [facility] [address] [id number], [place] [address] Aug, [facility] [place] [facility] [address] [id number] [place] [address] Aug, [facility] [place] [facility] [address] [id number], [place] [address] Aug, [facility] [place] [facility] [address] [id number], [place] [address]- [id number] Aug, [facility] [place] [facility] [address] [id number], [place] [address] 30 Jul, 2014 [facility] [place] [facility] [address] [id number] [place] [address] 30 Jul, 2014 [facility] [place] [facility] [address] [id number] [address] 24 Jul, 2014 [facility] [place] [facility] [address] [id number] [place] [address] 24 Jul, 2014 [facility] [place] [facility] [id number] [address] Jul, [facility] [id number] [address] Jul, [facility] [id number], [place] [address] Jul, [facility] [id number] [place] [address] Jul, [facility] [id number] [place] [id number] Jul, [facility] [id number] [place] [address] Jul, [facility] [id number] [place] [address] Jul, [facility] [id number] [place] [address] Jul, [facility] [id number] [place] [address]- [address] Jul, [facility] [id number] [place] [address] Jul, IMMUNIZATIONS No Known Immunizations SOCIAL HISTORY Never Assessed REASON FOR VISIT lump on neck--[place] , - Lump on right side of neck for 2 months and is not going away. Tender to touch. Pt had a gum abscess recently. Is on antibiotics currently. PLAN OF CARE Activity Details Follow Up prn Reason: VITAL SIGNS Height 60 in 2017-08-05 Weight 186.0 lbs 2017-08-05 Temperature 98.0 degrees Fahrenheit 2017-08-05 Heart Rate 76 bpm 2017-08-05 Respiratory Rate 20 2017-08-05 BMI 36.32 kg/m2 2017-08-05 Blood pressure systolic 140 mmHg 2017-08-05 Blood pressure diastolic 76 mmHg 2017-08-05 MEDICATIONS Medication Instructions Dosage Frequency Start Date End Date Duration Status Levemir FlexTouch 100 UNIT/ML INJECT 50 UNITS SUBCUTANEOUSLY TWICE DAILY 30 Active Tradjenta 5 MG TAKE ONE TABLET BY MOUTH ONCE DAILY 90 Active Gabapentin 600 MG Orally 3 times a day 1 tablet 8h Active Amoxicillin Active Humalog 100 UNIT/ML Active Lipitor 20 mg Orally Once a day take 1 tablet by Oral route at bedtime 1 time per day 24h Active Norvasc 5 MG TAKE 1 TABLET BY MOUTH ONCE A DAY 90 Active Aspirin 81 MG Orally Once a day 1 tablet 24h Active Percocet 10-325 MG Orally every 6 hrs 1 tablet as needed 6h Active RESULTS Name Result Date Reference Range Ultrasound : Neck 2017-08-11 PROCEDURES Procedure Date Ordered Result Body Site [facility] VISIT ESTABLISHED PATIENT Aug 05, 2017 INSTRUCTIONS MEDICATIONS ADMINISTERED No Known Medications MEDICAL (GENERAL) HISTORY Type Description Date Medical History hearing loss Medical History hypertension Medical History acute renal failure Medical History hyperlipidemia Medical History type II diabetes Medical History Arthritis Medical History degenerative disease lumbosacral spine Medical History chronic pain r/t DDD Medical History fibromyalgia Medical History CT-stent to LAD Surgical History cholecystectomy 1983 Surgical [...] Influenza illness, hyperglycemia 2017 Hospitalization History [facility] [place]- High BS (Pt left AMA) 01/05/2018 Hospitalization History [facility]- DKA and UTI. Discharged 01/14/2018 Hospitalization History [facility] [place]- Nausea and Vomiting, cannot urinate 01/18/2018
--- OUTSIDE RECORDS SUMMARY | 2018-06-01 10:16 | XMS REPORT ---
Author Author BURKSMARCELINO Rene Organization [facility] Address [address] [place] [address] Care Team Providers Care Effervescent Salts Compounder Name Role Phone MARCELINO BURKS Unavailable PROBLEMS Type Condition ICD9-CM Code GNU30-AS Code Onset Dates Condition Status SNOMED Code Problem Tobacco abuse counseling Z71.6 Active 550882119 Problem DM neuro manif type II E11.49 Active 27822159 Problem Chronic pain syndrome G89.4 Active 216417936 Problem Other obesity due to excess calories E66.09 Active 332197703 Problem Body mass index (BMI) of 33.0-33.9 in adult Z68.33 Active 256172213 Problem Seasonal allergic rhinitis due to pollen J30.1 Active 48891491 Problem Dental caries K02.9 Active 97631484 Problem Arthritis M19.90 Active 7176362 Problem Primary insomnia F51.01 Active 3553826 Problem Hyperlipidemia E78.5 Active 26984732 Problem Degenerative disc disease, lumbar M51.36 Active 02057116 Problem Alterations of sensations R20.9 Active 014786609 Problem FPC 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 Active 184839935 Problem 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 I10 Active 65276529 Problem Fibromyalgia M79.7 Active 62076879 Problem CAD (coronary artery disease) I25.10 Active 71125708 Problem GERD (gastroesophageal reflux disease) K21.9 Active 873920065 Problem Tobacco abuse Z72.0 Active 34095945 ALLERGIES No Information ENCOUNTERS Encounter Location Date Diagnosis [facility] [address] [facility] [id number] [address] Feb, Hypokalemia E87.6 [facility] [address] [id number] [address] Feb, Hyperlipidemia E78.5 ; 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 I10 ; DM neuro manif type II E11.49 ; Fibromyalgia M79.7 ; Acute non-recurrent frontal sinusitis J01.10 ; Other obesity due to excess calories E66.09 and Body mass index (BMI) of 33.0-33.9 in adult Z68.33 [place] [address] [address]358- 0133 05 Jan, 2018 Dysuria R30.0 [place] [address] 41175- 4504 05 Jan, 2018 Dysuria R30.0 [place] [address] 20798- 9263 02 Jan, 2018 Acute cystitis with hematuria N30.01 ; DM neuro manif type II E11.49 ; FPC 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 ; 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 I10 and Hospital discharge follow-up Z09 [place] [address] 61363- 6631 27 Dec, 2017 Chest pain, unspecified type R07.9 ; Dehydration E86.0 and Anuria R34 [address] [address]39- 9818 26 Dec, [address] 61553- 0869 22 Dec, 2017 Hyperglycemia R73.9 ; Dehydration E86.0 and Acute cystitis with hematuria N30.01 [facility] [address] [address] Dec, [facility] [address] [address] Dec, [facility] [address] [address] Dec, [facility] [address] 6[address] -5642 16 Dec, 2017 Dysuria R30.0 ; Acute cystitis with hematuria N30.01 and Weakness R53.[address] [place] [address] Dec, [place] [address] [place] [id number] [place] [address] 75628- 9628 Nov, [place] [address] [place] [id number] [place] [address] 31990- 7203 Nov, [place] [address] [place] [id number] [place] [address] 89844- 4507 Nov, 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 I10 ; DM neuro manif type II E11.49 ; FPC 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 ; Tobacco abuse Z72.0 ; Hyperlipidemia E78.5 ; Non-adherence to medical treatment Z91.19 ; GERD (gastroesophageal reflux disease) K21.9 ; Degenerative disc disease, lumbar M51.36 ; Fibromyalgia M79.7 ; Chronic pain syndrome G89.4 ; Dental caries K02.9 and Seasonal allergic rhinitis due to pollen J30.1 [place] [address] 13514- 4074 Nov, Alterations of sensations R20.9 [place] [address] 85281- 8449 Sep, DM neuro manif type II E11.49 ; Hyperlipidemia E78.5 ; Degenerative disc disease, lumbar M51.36 and Chronic pain syndrome G89.4 [place] [address] [place] [id number] [place] [address] 26482- 4009 Sep, Arthritis M19.90 [place] [address] [place] [id number] [place] [address] 46870- 5053 Sep, Type 2 diabetes mellitus without complication E11.9 ; GERD ( gastroesophageal reflux disease) K21.9 ; Arthritis M19.90 and Chronic pain syndrome G89.4 [place] [address] [place] [id number] [place] [address] 61170- 4101 Sep, [place] [address] [place] [id number] [place] [address] 81006- 5992 Aug, [place] [address] [place] [address]- 1095 18 Aug, 2017 Type 2 diabetes mellitus without complication E11.9 [facility] [address] [id number] [place] [address] 56877- 9971 17 Aug, 2017 [facility] [address] [id number] [place] [address] 41864- 1921 16 Aug, 2017 [facility] [address] 35058- 5979 16 Aug, 2017 [facility] [address] [id number] [place] [address] 97779- 3106 26 Jul, 2017 [facility] [address] 22459 -7315 22 Jul, 2017 Acute non-recurrent frontal sinusitis J01.10 [place] [address] [place] [id number] [place] [address] 00713- 8515 20 Jul, 2017 CAD (coronary artery disease) I25.10 and GERD ( gastroesophageal reflux disease) K21.9 [place] [address] [place] [id number] [place] [address] 32823- 8862 14 Jul, 2017 Localized swelling, mass and lump, neck R22.1 [place] [address] [place] [id number] [place] [address] 39578- 8226 06 Jul, 2017 [place] [address] [place] [id number] [place] [address] 08861- 4938 15 Jun, 2017 Type 2 diabetes mellitus without complication E11.9 ; Primary insomnia F51.01 ; Alterations of sensations R20.9 ; Hyperlipidemia E78.5 ; GERD (gastroesophageal reflux disease) K21.9 ; 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 I10 ; 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 ; Tobacco abuse Z72.0 ; Tobacco abuse counseling Z71.6 and CAD (coronary artery disease) I25.10 [place] [address] [place] [id number] [place] [address] 30142- 7691 May, [place] [address] 70285- 7014 May, Type 2 diabetes mellitus without complication E11.9 [facility] [address] [place] [id number] [place] [address] 35232- 2136 May, [facility] [address] [place] [id number] [place] [address] 43704- 1159 March, [facility] [address] [place] [id number] [place] [address] 76789- 8056 Feb, [facility] [address] [id number] [place] [address] 17067 -4484 Jan, Acute suppurative otitis media of left ear with spontaneous rupture of tympanic membrane, recurrence not specified H66.012 [place] [address] [place] [id number] [place] [address] 33668- 3117 17 Dec, 2016 Type 2 diabetes mellitus without complication E11.9 ; Lumbago M54.5 ; Cervicalgia M54.2 ; Hyperlipidemia E78.5 ; GERD ( gastroesophageal reflux disease) K21.9 ; Chronic pain syndrome G89.4 ; Dysuria R30.0 and 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 I10 [place] [address] [place] [id number] [place] [address] 34532- 1580 Oct, [place] [address] [place] [id number] [place] [address] 31569- 8065 30 Sep, 2016 Diabetic mononeuropathy associated with type 2 diabetes mellitus E11.41 and Coughing R05 [place] [address] [place] [id number] [place] [address] 14919- 4708 28 Sep, 2016 Diabetic mononeuropathy associated with type 2 diabetes mellitus E11.41 and Coughing R05 [place] [address] [place] [id number] [place] [address] 05009- 2187 Sep, Onychomycosis B35.1 ; Neuritis M79.2 and Type 2 diabetes mellitus without complication E11.9 [facility] [id number] [place] [address] 85517- 2916 Sep, [place] [address] [place] [id number] [place] [address] 08446- 9654 Sep, Cough R05 ; Seasonal allergic rhinitis due to pollen J30.1 and Acute upper respiratory infection, unspecified J06.9 [place] [address] 25237- 5532 Sep, [place] [address] 27201- 5816 Aug, [place] [address] 43696- 1214 Jul, Type 2 diabetes mellitus without complication E11.9 ; Chronic pain G89.29 ; 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 I10 and Acute non-recurrent maxillary sinusitis J01.00 [place] [address] 22842- 4163 Jul, Chronic pain syndrome G89.4 ; Lumbago M54.5 and Cervicalgia M54.[address] 59733- 7974 Jul, [place] [address] 79470- 4437 Jul, [place] [address] 97324- 4333 Jun, Onychomycosis B35.1 ; Onychocryptosis L60.0 and DM neuro manif type II E11.[address] 45207- 7434 Jun, Type 2 diabetes mellitus without complication E11.9 ; Pain in unspecified hip M25.559 ; Other chronic pain G89.29 ; Lumbago M54.5 ; Chronic pain G89.29 ; Insomnia, unspecified G47.00 ; GERD (gastroesophageal reflux disease) K21.9 and Dental caries K02.[address] 48114- 7598 Jun, Type 2 diabetes mellitus without complication E11.9 ; Lumbago M54.5 ; Chronic pain G89.29 ; Insomnia, unspecified G47.00 ; GERD ( gastroesophageal reflux disease) K21.9 ; Dental caries K02.9 ; Pain in unspecified hip M25.559 and Other chronic pain G89.29 [place] [address] [place] [id number] [place] [address] 98262- 0252 May, [address] 22042- 5310 May, Type 2 diabetes mellitus without complication E11.9 ; 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 I10 ; Chronic pain syndrome G89.4 ; Other seasonal allergic rhinitis J30.2 and Insomnia, unspecified G47.[address] 35554- 5166 Apr, [address] 15427- 1819 Apr, Hypertension I10 and Chronic pain G89.[address] 17366- 2286 March, Onychomycosis B35.1 ; Onychocryptosis L60.0 and Type 2 diabetes mellitus without complication E11.9 [place] [id number] [place] [address] 71172- 4904 March, Type 2 diabetes mellitus without complication E11.9 ; 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 I10 ; Alterations of sensations R20.9 ; Chronic pain syndrome G89.4 ; Tobacco abuse Z72.0 and Tobacco abuse counseling Z71.6 [place] [id number] [place] [address] 06599- 8877 Feb, Cough R05 ; Tobacco abuse counseling Z71.6 ; Chronic pain G89.29 and Type 2 diabetes mellitus without complication E11.9 [place] [id number] [place] [address] 72937- 7512 Feb, [address] 32045- 5429 Feb, Type 2 diabetes mellitus without complication E11.9 ; Lumbago M54.5 ; Cervicalgia M54.2 ; Degenerative disc disease, lumbar M51.36 and Numbness and tingling of both legs 782.0 [facility] [address] [place] [id number] [place] [address] [id number] Jan, Dental caries K02.9 and Encounter for dental examination Z01.20 [place] [address] 08973- 9770 Jan, Type 2 diabetes mellitus without complication E11.9 [place] [address] 59644- 4229 Jan, Type 2 diabetes mellitus without complication E11.9 ; Numbness and tingling of both legs 782.0 ; Fibromyalgia M79.7 ; Hyperlipidemia E78.5 ; Lumbago M54.5 ; Cervicalgia M54.2 ; Hypertension I10 ; CAD (coronary artery disease) I25.10 ; Tobacco abuse Z72.0 ; Tobacco abuse counseling Z71.6 and GERD (gastroesophageal reflux disease) K21.[address] 23751- 8481 Jan, [address] 11709- 7280 Dec, [facility] [address] [place] [id number] [place] [address] [id number] Dec, Dental examination Z01.20 and Dental caries K02.9 [place] [address] 57819- 2326 Dec, Edema R60.9 ; Type 2 diabetes mellitus without complication E11.9 ; Hypertension I10 and Mouth pain K13.[address] 95030- 5486 16 Dec, 2015 Degenerative disc disease, lumbar M51.[address] 09192- 4958 Dec, [place] [address] [place] [id number] [place] [address] 26341- 3475 Nov, Insomnia, unspecified G47.00 [place] [address] 85962- 2779 Nov, Type 2 diabetes mellitus without complication E11.9 ; Lumbago M54.5 ; Degenerative disc disease, lumbar M51.36 ; Fibromyalgia M79.7 ; Coronary artery disease I25.10 ; Hyperlipidemia E78.5 ; Controlled substance agreement signed Z79.899 ; Dysuria R30.0 ; Insomnia, unspecified G47.00 ; GERD ( gastroesophageal reflux disease) K21.9 ; Hypertension 401.9 and FPC 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 [place] [address] 35160- 1976 Nov, [address] 90234- 6855 Oct, Degenerative disc disease, lumbar M51.36 ; Cervicalgia M54.2 ; Insomnia, unspecified G47.00 ; Decreased GFR R94.4 and GERD ( gastroesophageal reflux disease) K21.[address] 83996- 4078 Oct, Lumbago M54.5 [place] [address] 23052- 9357 Oct, Low back pain M54.5 [place] [address] 44661- 8933 Oct, [place] [address] 64847- 1346 Oct, Disorientation R41.[address] 65943- 6586 Oct, Type 2 diabetes mellitus without complication E11.9 ; Disorientation R41.0 and Chest pain R07.[address] 36347- 2370 Oct, [facility] [address] [id number] [place] [address] 72083- 3539 Sep, Low back pain M54.5 [facility] [address] [place] [place] [id number] [place] [address] 40438- 4553 Sep, Insomnia, unspecified G47.00 [facility] [address] 76286- 9050 Aug, Degenerative disc disease, lumbar M51.36 ; Type 2 diabetes mellitus without complication E11.9 and Encounter for immunization Z23 [facility] [address] 79566- 7882 Aug, [facility] [address] 18776- 5840 Aug, [facility] [address] 46751- 3862 Aug, [facility] [address] [place] [id number] [place] [address] 44608- 0028 Jul, [facility] [address] 41138- 3825 Jun, [facility] [address] [place] [id number] [place] [address] 71196- 6836 Jun, Chest pain 786.50 and Lumbago 724.2 [facility] [address] [id number] [place] [address] 42449- 9334 Jun, [facility] [address] [id number] [place] [address] 18441- 1930 Jun, [facility] [address] [id number] [place] [address] [id number] Jun, Dental examination V72.2 [facility] [address] [place] [id number] [place] [address] 95142- 8776 Jun, [facility] [address] [id number] [place] [address] 50206- 1778 May, Left shoulder pain 719.41 and Numbness and tingling of both legs 782.0 [facility] [address] [id number] [place] [address] 00604- 6819 May, Cough 786.2 ; Numbness and tingling of both legs 782.0 and Acute rhinitis 460 [facility] [id number] [place] [address] 86408- 6620 May, [facility] [address] [id number] [place] [address] 89140- 6879 Apr, [facility] [address] [place] [id number] [place] [address] 28556- 9522 Apr, Bilateral lower extremity edema 782.3 ; Lumbago 724.2 and Insomnia 780.52 [facility] [address] [place] [id number] [place] [address] 19840- 0119 Apr, [facility] [id number] [place] [address] 75409- 6424 Apr, [facility] [address] [id number] [place] [address] 71672- 5601 March, Seborrheic keratosis 702.19 and Skin lesion of face 709.9 [facility] [id number] [place] [address] 21340- 2450 March, [facility] [id number] [place] [address] 64744- 7617 March, [facility] [id number] [place] [address] 31764- 4828 March, [facility] [id number] [place] [address] 61898- 0429 March, [facility] [address] [place] [address] 80698- 7967 Feb, [facility] [id number] [place] [address] 14094- 0964 13 Feb, 2015 [facility] [place] [facility] [address] [id number] [place] [address]- 0451 25 Jan, 2015 [facility] [place] [facility] [address] [id number] [place] [address]- 8052 25 Jan, 2015 [facility] [place] [facility] [address] [id number] [place] [address]- 8638 16 Jan, 2015 [facility] [place] [facility] [address] [id number] [place] [address]- 7548 16 Jan, 2015 [facility] [place] [facility] [address] [id number] [place] [address]- 9215 16 Jan, 2015 [facility] [place] [facility] [address] [id number] [place] [address]- 4596 16 Jan, 2015 [facility] [place] [facility] [address] [id number] [place] [address]- 6642 Jan, [facility] [place] [facility] [address] [id number] [place] [address]- 1147 13 Jan, 2015 [facility] [place] [facility] [address] [id number] [place] [address]- 2095 Jan, [facility] [place] [facility] [address] [facility] [id number] [place] [address]- 1268 Jan, [facility] [place] [facility] [address] [id number] [place] [address]- 5269 Jan, [facility] [place] [facility] [address] [id number] [place] [address]- 2788 Dec, [facility] [place] [facility] [address] [id number] [place] [address]- 8454 Dec, [facility] [place] [facility] [address] [id number] [place] [address]- 8978 Dec, [facility] [place] [facility] [address] [id number] [place] 4590 Dec, [facility] [place] [facility] [address] [id number] [place] [address]- 9328 Dec, [facility] [place] [facility] [address] [id number] [place] [address]- 4519 Dec, [facility] [place] [facility] [address] [id number] [place] [address]- 7436 Nov, [facility] [place] [facility] [address] [id number] [place] [address]- 4346 Nov, [facility] [place] [facility] [address] [id number] [place] [address]- 6022 Nov, [facility] [place] [facility] [address] [id number] [place] [address]- 7009 Nov, [facility] [place] [facility] [address] [id number] [place] [address]- 7924 Nov, [facility] [place] [facility] [address] [id number] [place] [address]- 5091 Nov, [facility] [place] [facility] [address] [id number] [place] [address]- 8250 Nov, [facility] [place] [facility] [address] [id number] [place] [address]- 6002 Nov, [facility] [place] [facility] [address] [id number] [place] [address]- 3802 Nov, [facility] [place] [facility] [address] [id number] [place] [address]- 5965 Nov, [facility] [place] [facility] [address] [id number] [place] [address]- 6371 Nov, [facility] [place] [facility] [address] [id number] [place] [address]- 1016 Oct, [facility] [place] [facility] [address] [id number] [place] [address]- 3247 Oct, [facility] [place] [facility] [address] [id number] [place] [address]- 7313 Oct, [facility] [place] [facility] [address] [id number] [place] [address]- 6214 Oct, [facility] [place] [facility] [address] [id number] [place] [address]- 1078 Oct, [facility] [place] [facility] [address] [id number] [place] [address]- 9214 Oct, [facility] [place] [facility] [address] [id number] [place] [address]- 5856 Oct, [facility] [place] [facility] [address] [id number] [place] [address]- 7851 Oct, [facility] [place] [facility] [address] [id number] [place] [address]- 0105 Oct, [facility] [place] [facility] [address] [id number] [place] [address]- 9623 Oct, [facility] [place] [facility] [address] [id number] [place] [address]- 6731 Sep, [facility] [place] [facility] [address] [id number] [place] [address]- 7950 Sep, [facility] [place] [facility] [address] [id number] [place] [address]- 7939 Sep, [facility] [place] [facility] [address] [id number] [place] [address]- 1233 Sep, [facility] [place] [facility] [address] [id number] [place] [address]- 1770 Sep, [facility] [place] [facility] [address] [id number] [place] [address]- 3295 Sep, [facility] [place] [facility] [address] [id number] [place] [address]- 8767 Sep, [facility] [place] [facility] [address] [id number] [place] [address]- 8555 Sep, [facility] [place] [facility] [address] [id number] [place] [address]- 4358 17 Sep, 2014 [facility] [place] [facility] [address] [id number] [place] [address]- 7093 17 Sep, 2014 [facility] [place] [facility] [address] [id number] [place] [address]- 4930 Sep, [facility] [place] [facility] [address] [id number] [place] [address]- 2507 Sep, [facility] [place] [facility] [address] [id number] [place] [address]- 4736 Sep, [facility] [place] [facility] [address] [id number] [place] [address]- 5962 Aug, [facility] [place] [facility] [address] [id number] [place] [address]- 7514 Aug, [facility] [place] [facility] [address] [id number] [place] [address]- 1168 Aug, [facility] [place] [facility] [address] [id number] [place] [address]- 8172 30 Aug, 2014 [facility] [place] [facility] [address] [id number] [place] [address]- 8019 Aug, [facility] [place] [facility] [address] [id number] [place] [address]- 3617 30 Aug, 2014 [facility] [place] [facility] [address] [id number] [place] [address]- 5944 Aug, [facility] [place] [facility] [address] [id number] [place] [address]- 1791 24 Aug, 2014 [facility] [place] [facility] [address] [id number] [place] [address] Aug, [facility] [place] [facility] [address] [id number] [place] [address] Aug, [facility] [place] [facility] [address] [id number] [place] [address] Aug, [facility] [place] [facility] [address] [id number] [place] [address] Aug, [facility] [place] [facility] [address] [id number] [place] [address] Aug, [facility] [place] [facility] [address] [id number] [place] [address] Aug, [facility] [place] [facility] [address] [id number] [place] [address] Aug, [facility] [place] [facility] [address] [id number] [place] [address] Aug, [facility] [place] [facility] [address] [id number] [place] [address] Aug, [facility] [place] [facility] [address] [id number] [place] [address] Aug, [facility] [place] [facility] [address] [id number] [place] [address] 30 Jul, 2013 [facility] [place] [facility] [address] [id number] [place] [address] 30 Jul, 2013 [facility] [place] [facility] [address] [id number] [place] [address] 24 Jul, 2013 [facility] [place] [facility] [address] [id number] [place] [address] 24 Sep, 2013 [facility] [place] [facility] [address] [id number] [address] 23 Sep, 2013 [facility] [place] [facility] [address] [id number] [place] [address] 254 23 Sep, 2013 [facility] [place] [facility] [address] [id number] [place] [address] 15 Sep, 2013 [facility] [place] [facility] [address] [id number] [place] [address] 15 Jul, 2013 [facility] [place] [facility] [address] [id number] [place] [address] 15 Jul, 2014 [facility] [address] [facility] [id number] [place] [address] 15 Jul, 2014 [facility] [address] [facility] [id number] [place] [address] 11 Jul, 2014 [facility] [address] [facility] [id number] [place] [address] Jul, [facility] [address] [facility] [id number] [place] [address] 11 Jul, 2014 [facility] [address] [facility] [id number] [place] [address] Jul, IMMUNIZATIONS No Known Immunizations SOCIAL HISTORY [...] r/t DDD Medical History fibromyalgia Medical History DE-stent to LAD Surgical History cholecystectomy 1983 Surgical [...] Influenza illness, hyperglycemia 2017 Hospitalization History [facility]- High BS (Pt left AMA) 01/05/2018 Hospitalization History [facility]- DKA and UTI. Discharged 01/14/2018 Hospitalization History [facility]- Nausea and Vomiting, cannot urinate 01/18/2018
[2018-06-01 10:20] VITALS: BP 129/85
--- NOTE | 2018-06-01 10:21 | Conscious Sedation/ASA ---
Conscious Sedation Pre-Proced Time Reviewed: 10:00 ASA Class: 2 Airway Mallampati Classification: (iliamna appropriate class) I. II. III, IV Lungs Heart ASA score ASA 1: a normal healthy patient ASA 2: a patient with a mild systemic disease (mid diabetes, controlled hypertension, obesity ASA 3: a patient with a severe systemic disease that limits activity (angina , COPD, prior Myocardial infarction) ASA 4: a patient with an incapacitating disease that is a constant threat to life (CHF, renal failure) ASA 5: a moribund patient not expected to survive 24 hrs. (ruptured aneurysm) ASA 6: a declared brain patient whose organs are being harvested. For emergent operations, add the letter E after the classification Grade 2 Sedation Plan: Analgesia, Amnesia, Plan communicated to team members, Discussed options with patient/fam, Discussed risks with patient/fam Note The patient is an appropriate candidate to undergo the planned procedure, sedation, and anesthesia. The patient immediately re-assessed prior to indication. MCKENZIE CHAVEZ MD Jun 01, 2018 10:21 am
--- NOTE | 2018-06-01 10:22 | Progress Note-Pre Operative ---
Pre-Operative Progress Note H&P Reviewed The H&P was reviewed, patient examined and no changes noted. Date Seen by Provider: Jun 01, 2018 Time Seen by Provider: 10:00 Date H&P Reviewed: Jun 01, 2018 Time H&P Reviewed: 10:00 Pre-Operative Diagnosis: GERD, screening colonoscopy MCKENZIE CHAVEZ MD Jun 01, 2018 10:22 am
[2018-06-01] MEDS ORDERED: HYDROcodone/APAP 5 MG/325 MG (LORTAB) TAB PO PRN (10:30)
[2018-06-01] MEDS ORDERED: morphine INJ 10 MG/ML 1ML (SYR OR VIAL) IV PRN (10:30)
[2018-06-01] MEDS ORDERED: ACETAMINOPHEN 325 MG TABLET PO PRN (10:30)
[2018-06-01] MEDS ORDERED: NS IV 500 ML 500 ML ONE (10:37)
[2018-06-01] MEDS ORDERED: NS IV 500 ML 500 ML IV PRN (10:48)
[2018-06-01] MEDS ORDERED: LIDOCAINE JELLY 2% (XYLOCAINE) 5 ML TUBE MM PRN (11:00)
[2018-06-01] MEDS ORDERED: HURRICAINE EXT TUBE (BENZOCAINE) XX PRN (11:00)
[2018-06-01] MEDS ORDERED: fentaNYL INJECTION 100 MCG/2 ML AMP ONE ×3 (11:53→12:47)
[2018-06-01] MEDS ORDERED: LIDOCAINE JELLY 2% (XYLOCAINE) 5 ML TUBE ONE (11:53)
[2018-06-01] MEDS ORDERED: MIDAZOLAM 2 MG/2 ML (VERSED) VIAL ONE ×5 (11:54→12:37)
[2018-06-01] MEDS ORDERED: HURRICAINE EXT TUBE (BENZOCAINE) ONE (11:54)
[2018-06-01] MEDS: fentaNYL INJECTION 100 MCG/2 ML AMP IVP PRN ×6 (11:55→12:53)
[2018-06-01] MEDS: MIDAZOLAM 2 MG/2 ML (VERSED) VIAL IVP PRN ×5 (12:15→12:46)
--- NOTE | 2018-06-01 13:14 | Progress Note-Post Operative ---
Post-Operative Progess Note Surgeon (s)/Technical Rep (s) Surgeon MCKENZIE CHAVEZ MD Technical Rep: none Pre-Operative Diagnosis GERD, screening colonoscopy Post-Operative Diagnosis reflux esophagitis(class B), small HH(1.5cm), mild-moderate gastritis. moderate sigmoid diverticulosis. Procedure & Operative Findings Date of Procedure 06/01/18 Procedure Performed/Findings EGD with bx. Colonoscopy. Anesthesia Type CS Estimated Blood Loss Estimated blood loss (mL): minimal Specimens/Packing Specimens Removed GE jxn, antrum MCKENZIE CHAVEZ MD Jun 01, 2018 1:14 pm
[2018-06-01 13:15] VITALS: BP 142/74
[2018-06-01] MEDS ORDERED: ERYT250C61 PO (13:18)
[2018-06-01] MEDS ORDERED: PANT40TA2 PO (13:18)
--- NOTE | 2018-06-01 13:19 | Discharge Inst-Surgical ---
D/C Lap Instructions-KIDO New, Converted, or Re-Newed RX: RX on Chart Follow Up PRN Activity as tolerated High Fiber Diet 25g or more per day Avoid Alcohol, Caffeine, Spicy [place] and Acid foods. Drink 64 fluid oz or more of fluids per day. Symptoms to Report: Fever over 101 degree F, Nausea/Vomiting If any problems/questions: Contact your physician or go to Emergency Room MCKENZIE CHAVEZ MD Jun 01, 2018 1:19 pm
[2018-06-01 13:40] VITALS: BP 143/75
[2018-06-01 14:45] VITALS: BP 143/75
--- NOTE | 2018-06-01 17:11 | OPERATIVE REPORT ---
DATE OF SERVICE: 06/01/2018 ATTENDING PRIMARY CATTLE KNOCKER: Chacorta Landry APRN. PREOPERATIVE DIAGNOSES: Screening colonoscopy, nausea and vomiting, dysphagia. POSTOPERATIVE DIAGNOSES: Reflux esophagitis class B, small hiatal hernia approximately 1.5 cm in size, mild to moderate gastritis, moderate sigmoid diverticulosis. PROCEDURE: EGD with biopsy, colonoscopy. SURGEON: Dr. Rubin. ANESTHESIA: Conscious sedation. ESTIMATED BLOOD LOSS: Minimal. FINDINGS: Reflux esophagitis class B with a small hiatal hernia approximately 1.5 cm in size. There was a mild to moderate gastritis with no formal ulcerations, polyps or any neoplasms. Pylorus and duodenum appeared normal with no distal obstructions. Colonoscopy: Moderate sigmoid diverticulosis with no mucosal inflammatory change to indicate any active diverticulitis. There were no polyps or any neoplasms identified. DISPOSITION: The patient tolerated the procedure well. INDICATIONS: The patient is a 58-year-old female in need of a screening colonoscopy. Her last one was approximately 10 years ago and remembers that one to be normal. She also does not report any known family history of colon cancer. She reports that she has had nausea as well as intermittent episodes of vomiting and a choking sensation and dysphagia. She does have multiple medical problems. She felt a mass in her neck; however, an ultrasound was performed which did not show any abnormalities. She does have a history of degenerative joint disease and has undergone multiple spinal surgeries in the past. DESCRIPTION OF PROCEDURE: The patient was brought to the endoscopy suite, laid in the left lateral decubitus position. After adequate IV pain and sedating medications and conscious sedation anesthesia, the mouthpiece was applied. The endoscope was placed in the mouth, visualizing the pharynx and hypopharyngeal region. Vocal cords, epiglottis and vallecula identified and appeared to be normal. The endoscope was gently intubated. The esophageal opening and esophagus insufflated. The endoscope was then advanced to the first, second and third portions of esophagus to the level of GE junction and reflux esophagitis class B identified. There were no ulcers or strictures identified in this region. A biopsy was taken with forceps with visualization of good hemostasis. The endoscope was then advanced into the stomach and endoscope retroflexed, visualizing a small hiatal hernia approximately 1.5 cm in size. There was a mild to moderate gastritis noted. There were no formal ulcerations, polyps or any neoplasms identified. A biopsy was taken of the stomach and antrum for H. pylori with visualization of good hemostasis. Endoscope was then advanced to the pylorus and the first and second portion of the duodenum, which appeared normal. There were no distal obstructions. The endoscope was then slowly withdrawn while taking a second look and suctioning of residual air with no additional findings. The patient tolerated this portion of the procedure well. She does have mild to moderate gastritis, small hiatal hernia as well as reflux esophagitis; however, no strictures or any obstructive type of lesions. We feel that her most likely etiology of her nausea as well as dysphagia secondary to developing gastroparesis from her medical comorbidities including insulin-dependent diabetes. The proper test for this would be a nuclear gastric emptying study. We will, however, proceed with a trial of erythromycin 250 mg q.a.c. and also start her on pantoprazole 40 mg daily. Under the same anesthesia, we then proceeded with a colonoscopy portion of the procedure. A digital rectal examination was performed, which did not show any significant hemorrhoids. Normal sphincter tone was felt and there were no palpable masses. The endoscope was then intubated into the anus and rectum and gently insufflated. The endoscope was then advanced to the valves of [place] of the rectum with no polyps or any neoplasms identified. We then proceeded through the sigmoid colon where a moderate sigmoid diverticulosis identified. There were no mucosal inflammatory changes to indicate any active diverticulitis. The endoscope was then advanced to the remainder of the descending, transverse and ascending colon and the cecum. These segments were normal. There were no polyps or any neoplasms identified throughout the colon or rectum. The endoscope was slowly withdrawn while taking a second look and suctioning of residual air with no additional findings. The patient tolerated the procedure well. We will recommend a high-fiber diet with at least 25 grams of fiber per day as well as at least 64 fluid ounces of water daily to promote soft stools on a daily basis. She does not need another colonoscopy for another 10 years, however, sooner if any problems arise. Job ID: [id number] DocumentID: [id number] Dictated Date: 06/01/2018 13:25:22 Coat [employer]eller Date: 06/01/2018 17:10:35 Dictated By: MCKENZIE RUBIN MD
== END 2018-06-01 14:45 | disposition home or self-care (01) ==
LOC: ENDO 09:57
PROVIDERS: ATTEND Surgery
DX: Z12.11 Encounter for screening for malignant neoplasm of colon (principal); K57.30 Diverticulosis of large intestine without perforation or abscess without bleeding; K21.0 Gastro-esophageal reflux disease with esophagitis; K44.9 Diaphragmatic hernia without obstruction or gangrene; K29.70 Gastritis, unspecified, without bleeding; I10 Essential (primary) hypertension; E11.40 Type 2 diabetes mellitus with diabetic neuropathy, unspecified; F17.210 Nicotine dependence, cigarettes, uncomplicated; I25.2 Old myocardial infarction; Z95.5 Presence of coronary angioplasty implant and graft; Z79.82 Long term (current) use of aspirin; Z79.4 Long term (current) use of insulin; Z79.899 Other long term (current) drug therapy
CPT/HCPCS: 43239; G0121; 82962

== ENCOUNTER 2018-06-11 16:31 | Emergency (ER) | payer MEDICARE ==
[~2018-06-11] VITALS: Ht 152.4 cm; Wt 77.1 kg
[~2018-06-11 16:31] MED LIST changes: +ERYT250C61 PO
--- NOTE | 2018-06-11 16:54 | ED Chest Pain ---
General Chief Complaint: Chest Pain Stated Complaint: CHEST PAIN Nursing Triage Note: ARRIVED VIA AMB TO ROOM 08. COMPLAINS OF CHEST PAIN X2-3 DAYS BUT TODAY IS NOT GETTING BETTER. Nursing Sepsis Screen: No Definite Risk Source: patient Exam Limitations: no limitations History of Present Illness Date Seen by Provider: Jun 11, 2018 Time Seen by Provider: 16:51 Initial Comments The patient is a 58-year-old white female who presents with a chief complaint of intermittent chest pain. She states that this is been going on for the last 2-3 days. It is not related to exercise. It comes from the left and central chest and radiates up to the right jaw. There is been no diaphoresis. She has a previous history of stenting. This was done about 3 years ago. She is known to be diabetic from the early s. She suspects that this may in fact have gone back as far as the s. This is her 83rd contacts since 2007 Timing/Duration: 2-3 days Severity/Quality: mild, moderate Location: substernal Radiation: jaw, arms Allergies and Home Medications Allergies Coded Allergies: ketorolac (Verified Allergy, Severe, ANAPHYLAXIS, PT TAKES ASA AT HOME, ) ondansetron (Verified Allergy, Intermediate, RASH, 07/19/14) RASH/ HIVES exenatide (Verified Allergy, Unknown, NAUSEA, 07/19/14) NON STOP VOMITING latex (Verified Allergy, Unknown, RASH, 07/19/14) metoclopramide (Verified Allergy, Unknown, RESTLESS LEGS, 07/19/14) Home Medications Amlodipine Besylate 5 Mg Tablet, 5 MG PO DAILY, (Reported) Aspirin 81 Mg Tablet.dr, 81 MG PO DAILY, (Reported) Atorvastatin Calcium 40 Mg Tablet, 40 MG PO HS, (Reported) Erythromycin Base 250 Mg Capsule.dr, 250 MG PO AC Prescribed by: MCKENZIE CHAVEZ on 06/01/18 1318 Gabapentin 800 Mg Tablet, 800 MG PO TID, (Reported) Insulin Detemir 100 Unit/1 Ml Insuln.pen, 58 UNITS SQ BID, (Reported) Insulin Lispro 100 Unit/1 Ml Insuln.pen, SQ AC, (Reported) SHE IS UNSURE OF HER SLIDING SCALE AND CAN NOT REMEMBER HOW MANY UNITS SHE TYPICALLY USES, SHE TESTS HER BLOOD SUGAR AND ENTERS HER CARBS AND HER METER TELLS HER HOW MANY UNITS OF INSULIN TO USE Linagliptin 5 Mg Tablet, 5 MG PO DAILY, (Reported) Oxycodone HCl 10 Mg Tablet, 10 MG PO DAILY, (Reported) Oxycodone HCl/Acetaminophen 1 Each Tablet, 1 TAB PO EVERY 4-6 HOURS PRN for PAIN -MODERATE, (Reported) Pantoprazole Sodium 40 Mg Tablet.dr, 40 MG PO DAILY Prescribed by: MCKENZIE CHAVEZ on 06/01/18 4118 Patient Home Medication List Home Medication List Reviewed: Yes Review of Systems Constitutional: see HPI EENTM: No Symptoms Reported Respiratory: No Symptoms Reported Cardiovascular: See HPI, Chest Pain Gastrointestinal: No Symptoms Reported Genitourinary: No Symptoms Reported Musculoskeletal: no symptoms reported Skin: no symptoms reported Psychiatric/Neurological: No Symptoms Reported Endocrine: No Symptoms Reported Hematologic/Lymphatic: No Symptoms Reported Past Caffzaq-Cpdeyh-Hvhcdk Hx Patient Social History Alcohol Beverage of Choice: Wine Type Used: Cigarettes Former Smoker, Quit: Nov 23, 2017 2nd Hand Smoke Exposure: No Recent Foreign Travel: No Contact w/Someone Who Travel: No Recent Infectious Disease Expo: No Recent Hopitalizations: No Immunizations Up To Date Tetanus Booster (TDap): Unknown PED Vaccines UTD: No Date of Pneumonia Vaccine: Dec 12, 2013 Date of Influenza Vaccine: Sep 07, 2017 Seasonal Allergies Seasonal Allergies: Yes Past Medical History Surgeries: Yes (4 BACK SURGERIES AND 1 CERVICAL SURGERY) Cardiac, Coronary Stent, Ear Surgery, Gallbladder, Orthopedic, Renal Respiratory: Yes Chronic Bronchitis Currently Using CPAP: No Currently Using BIPAP: No Cardiac: Yes (CARDIAC STENTS) Chronic Edema/Swelling, Coronary Artery Disease, Deep Vein Thrombosis, High Cholesterol, Hypertension Neurological: Yes (NEUROPATHY IN HANDS AND FEET) Headaches /Migraines, Neuropathy 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 Disorders: No 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 Disorders: Denies 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 Sexually Transmitted Disease: No HIV/AIDS: No Genitourinary: Yes Bladder Infection, Kidney Stones, Renal Failure Gastrointestinal: Yes (nausea) Gastroesophageal Reflux Musculoskeletal: Yes (CHRONIC NECK PAIN, PSORIATIC ARTHRITIS ) Degenerate Disk Disease, Chronic Back Pain Endocrine: Yes Diabetes, Insulin dep HEENT: Yes Chronic Ear Infection Loss of Vision: Denies Hearing Impairment: Hard of Hearing Cancer: No Psychosocial: Yes Anxiety Integumentary: Yes Psoriasis Blood Disorders: No Adverse Reaction/Blood Tranf: No Family Medical History Cancer of mouth 19 FATHER ( of esophogeal cancer.) Cardiovascular disease 19 MOTHER G8 BROTHER Completed stroke 19 FATHER G8 BROTHER Diabetes mellitus G8 BROTHER FH: lung cancer 19 MOTHER Hypertension 19 FATHER Kidney disease 19 FATHER Myocardial infarction 19 MOTHER G8 BROTHER Respiratory disorder No Family History of: AIDS No Pertinent Family Hx Physical Exam Vital Signs Vital Signs - First Documented 06/11/18 16:33 Temp 98.0 Pulse 71 Resp 16 B/P (MAP) 159/80 (106) Pulse Ox 98 O2 Delivery Room Air Capillary Refill : Less Than 3 Seconds Height, Weight, BMI Height: 5'0.00" Weight: 170lbs. 0.0oz. [id number]; 32.8 BMI Method:Stated General Appearance: Mild Distress HEENT: Normal ENT Inspection Neck: Full Range of Motion, Normal Inspection, Non Tender Respiratory: Chest Non Tender, Lungs Clear, Normal Breath Sounds, No Accessory Muscle Use, No Respiratory Distress Cardiovascular: Regular Rate, Rhythm, No Edema, No Gallop, No JVD Gastrointestinal: Normal Bowel Sounds, No Organomegaly, No Pulsatile Mass, Non Tender Extremity: Normal Capillary Refill, Normal Inspection, Normal Range of Motion Neurologic/Psychiatric: Alert, Oriented x3 Skin: Normal Color, Warm/Dry Lymphatic: No Adenopathy Progress/Results/Core Measures Results/Orders Lab Results Laboratory Tests Test 06/11/18 16:40 Range/Units White Blood Count 13.0 H 4.3-11.0 10^3/uL Red Blood Count 4.46 4.35-5.85 10^6/uL Hemoglobin 13.4 11.5-16.0 G/DL Hematocrit 40 35-52 % Mean Corpuscular Volume 89 80-99 FL Mean Corpuscular Hemoglobin 30 25-34 PG Mean Corpuscular Hemoglobin Concent 34 32-36 G/DL Red Cell Distribution Width 13.1 10.0-14.5 % Platelet Count 283 130-400 10^3/uL Mean Platelet Volume 10.1 7.4-10.4 FL Neutrophils (%) (Auto) 72 42-75 % Lymphocytes (%) (Auto) 21 12-44 % Monocytes (%) (Auto) 4 0-12 % Eosinophils (%) (Auto) 2 0-10 % Basophils (%) (Auto) 1 0-10 % Neutrophils # (Auto) 9.3 H 1.8-7.8 X 10^3 Lymphocytes # (Auto) 2.8 1.0-4.0 X 10^3 Monocytes # (Auto) 0.5 0.0-1.0 X 10^3 Eosinophils # (Auto) 0.3 0.0-0.3 10^3/uL Basophils # (Auto) 0.1 0.0-0.1 10^3/uL Sodium Level 138 135-145 MMOL/L Potassium Level 4.1 3.6-5.0 MMOL/L Chloride Level 109 H 98-107 MMOL/L Carbon Dioxide Level 20 L 21-32 MMOL/L Anion Gap 9 5-14 MMOL/L Blood Urea Nitrogen 18 7-18 MG/DL Creatinine 0.78 0.60-1.30 MG/DL Estimat Glomerular Filtration Rate > 60 BUN/Creatinine Ratio 23 Glucose Level 190 H 70-105 MG/DL Calcium Level 9.7 8.5-10.1 MG/DL Total Bilirubin 0.4 0.1-1.0 MG/DL Aspartate Amino Transf (AST/SGOT) 12 5-34 U/L Alanine Aminotransferase (ALT/SGPT) 15 0-55 U/L Alkaline Phosphatase 89 40-136 U/L Troponin I < 0.30 <0.30 NG/ML Total Protein 7.3 6.4-8.2 GM/DL Albumin 4.0 3.2-4.5 GM/DL My Orders Orders - CARLINE MOBLEY MD Ekg Tracing (06/11/18 16:54) Cbc With Automated Diff (06/11/18 16:54) Comprehensive Metabolic Panel (06/11/18 16:54) Troponin I (06/11/18 16:54) Chest 1 View, Ap/Pa Only (06/11/18 16:54) Fentanyl Injection (Sublimaze Injection (06/11/18 17:45) Vital Signs/I&O 06/11/18 16:33 Temp 98.0 Pulse 71 Resp 16 B/P (MAP) 159/80 (106) Pulse Ox 98 O2 Delivery Room Air Blood Pressure Mean: 106 Departure Communication (Admissions) The cardiogram was negative the chest x-ray was negative. Troponin was less than 0.30 Impression Primary Impression: Chest pain Disposition: 01 HOME, SELF-CARE Condition: Stable/Unchanged Departure-Patient Inst. Decision time for Depature: 17:50 Referrals: WINDY GRIFFIN DO (PCP/Family) Primary Care Physician Add. Discharge Instructions: All discharge instructions reviewed with patient and/or family. Voiced understanding. If pain persists return to the emergency room See your provider to arrange further cardiac workup CARLINE MOBLEY MD Jun 11, 2018 16:54
[2018-06-11 17:06] LABS: BASOPHILS # (AUTO) 0.1 10^3/uL (0.0-0.1); BASOPHILS % (AUTO) 1 % (0-10); EOSINOPHILS # (AUTO) 0.3 10^3/uL (0.0-0.3); EOSINOPHILS % (AUTO) 2 % (0-10); HEMATOCRIT 40 % (35-52); HEMOGLOBIN 13.4 G/DL (11.5-16.0); LYMPHOCYTES # (AUTO) 2.8 X 10^3 (1.0-4.0); LYMPHOCYTES % (AUTO) 21 % (12-44); MEAN CORPUSCULAR HEMOGLOBIN 30 PG (25-34); MEAN CORPUSCULAR HGB CONC 34 G/DL (32-36); MEAN CORPUSCULAR VOLUME 89 FL (80-99); MEAN PLATELET VOLUME 10.1 FL (7.4-10.4); MONOCYTES # (AUTO) 0.5 X 10^3 (0.0-1.0); MONOCYTES % (AUTO) 4 % (0-12); NEUTROPHILS # (AUTO) 9.3 X 10^3 (1.8-7.8); NEUTROPHILS % (AUTO) 72 % (42-75); PLATELET COUNT 283 10^3/uL (130-400); RED BLOOD COUNT 4.46 10^6/uL (4.35-5.85); RED CELL DISTRIBUTION WIDTH 13.1 % (10.0-14.5)
[2018-06-11 17:26] LABS: ALANINE AMINOTRANSFERASE 15 U/L (0-55); ALKALINE PHOSPHATASE 89 U/L (40-136); BILIRUBIN,TOTAL 0.4 MG/DL (0.1-1.0); BUN/CREATININE RATIO 23; CALCIUM 9.7 MG/DL (8.5-10.1); CARBON DIOXIDE 20 MMOL/L (21-32); CHLORIDE 109 MMOL/L (98-107); CREATININE SERUM 0.78 MG/DL (0.60-1.30); GFR ESTIMATED > 60; GLUCOSE 190 MG/DL (70-105); POTASSIUM 4.1 MMOL/L (3.6-5.0); SODIUM 138 MMOL/L (135-145); TOTAL PROTEIN 7.3 GM/DL (6.4-8.2)
--- NOTE | 2018-06-11 17:32 | Diagnostic Imaging Report ---
INDICATION: Chest pain. COMPARISON: 01/18/18. EXAMINATION: Single view of the chest. Stable cardiac enlargement. The lungs are clear. There is a Port-A-Cath in place. Osseous structures normal. There is no pneumothorax. IMPRESSION: No acute CAD findings. Dictated by: Dictated on workstation # [id number]
[2018-06-11] MEDS ORDERED: fentaNYL INJECTION 100 MCG/2 ML AMP IVP SCH (17:45)
[2018-06-11 18:23] VITALS: BP 149/71
--- OUTSIDE RECORDS SUMMARY | 2018-06-11 18:50 | XMS REPORT ---
Author Author BURKSMARCELINO Rene Organization [facility] Address [address] [place] [address] Care Team Providers Care Elevator Erector Name Role Phone BUKRSMARCELINO Rene Unavailable PROBLEMS Type Condition ICD9-CM Code XDS08-JZ Code Onset Dates Condition Status SNOMED Code Problem Tobacco abuse counseling Z71.6 Active 619514971 Problem DM neuro manif type II E11.49 Active 04627979 Problem Chronic pain syndrome G89.4 Active 913217369 Problem Other obesity due to excess calories E66.09 Active 517590236 Problem Body mass index (BMI) of 33.0-33.9 in adult Z68.33 Active 024317766 Problem Seasonal allergic rhinitis due to pollen J30.1 Active 83037894 Problem Dental caries K02.9 Active 28596866 Problem Arthritis M19.90 Active 9590081 Problem Primary insomnia F51.01 Active 5348950 Problem Hyperlipidemia E78.5 Active 71734361 Problem Degenerative disc disease, lumbar M51.36 Active 12604706 Problem Alterations of sensations R20.9 Active 717444616 Problem USP 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 Active 296818002 Problem 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 I10 Active 96687459 Problem Fibromyalgia M79.7 Active 55366702 Problem CAD (coronary artery disease) I25.10 Active 49540814 Problem GERD (gastroesophageal reflux disease) K21.9 Active 067307819 Problem Tobacco abuse Z72.0 Active 16454299 ALLERGIES No Information ENCOUNTERS Encounter Location Date Diagnosis [facility] [address] [address] Apr, [facility] [id number] [place] [address] 45777- 3681 March, 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 I10 ; DM neuro manif type II E11.49 and GERD (gastroesophageal reflux disease) K21.9 [facility] [address] [address] March, [place] [address] [address] March, [place] [address] [address]- 3319 Feb, Tobacco abuse Z72.0 [place] [address] 64132- 0593 Feb, Tobacco abuse Z72.0 [place] [address] 89021- 7146 Feb, Hypokalemia E87.6 [place] [address] 90458- 1281 Feb, Hyperlipidemia E78.5 ; 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 I10 ; DM neuro manif type II E11.49 ; Fibromyalgia M79.7 ; Acute non-recurrent frontal sinusitis J01.10 ; Other obesity due to excess calories E66.09 and Body mass index (BMI) of 33.0-33.9 in adult Z68.33 [place] [address] 00[address]- 9687 05 Jan, 2018 Dysuria R30.0 [place] [address] [address]14- 0241 05 Jan, 2018 Dysuria R30.0 [place] [address] 21417- 9052 Jan, Acute cystitis with hematuria N30.01 ; DM neuro manif type II E11.49 ; vp scientific 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 ; 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 I10 and Hospital discharge follow-up Z09 [place] [address] [address]- [address]6 Dec, Chest pain, unspecified type R07.9 ; Dehydration E86.0 and Anuria R34 [place] [address] 81336- 6742 Dec, [place] [address] [place] [id number] [place] [address] 77774- 7899 Dec, Hyperglycemia R73.9 ; Dehydration E86.0 and Acute cystitis with hematuria N30.01 [facility] [address] [place] [id number] [place] [address] 78010 -8593 Dec, [facility] [address] [address] Dec, [facility] [place] [address] 16[address] -4742 Dec, [facility] [address] [address] Dec, Dysuria R30.0 ; Acute cystitis with hematuria N30.01 and Weakness R53.[address] [address]- 1265 Dec, [address] 7[address]15- 2624 Nov, [address] 09908- 9158 Nov, [address] 18035- 1635 Nov, 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 I10 ; DM neuro manif type II E11.49 ; vp scientific 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 ; Tobacco abuse Z72.0 ; Hyperlipidemia E78.5 ; Non-adherence to medical treatment Z91.19 ; GERD (gastroesophageal reflux disease) K21.9 ; Degenerative disc disease, lumbar M51.36 ; Fibromyalgia M79.7 ; Chronic pain syndrome G89.4 ; Dental caries K02.9 and Seasonal allergic rhinitis due to pollen J30.1 [place] [id number] [place] [address] 61472- 6687 12 Nov, 2017 Alterations of sensations R20.[address] 8[address]66- 3202 Sep, DM neuro manif type II E11.49 ; Hyperlipidemia E78.5 ; Degenerative disc disease, lumbar M51.36 and Chronic pain syndrome G89.4 [facility] [address] [address]10- 9029 Sep, Arthritis M19.90 [facility] [address] 61178- 7993 Sep, Type 2 diabetes mellitus without complication E11.9 ; GERD ( gastroesophageal reflux disease) K21.9 ; Arthritis M19.90 and Chronic pain syndrome G89.4 [place] [address] 05199- 4994 Sep, [facility] [address] 15120- 1415 Aug, [facility] [address] 84173- 2460 Aug, Type 2 diabetes mellitus without complication E11.9 [facility] [address] 10382- 6062 Aug, [facility] [address] 14791- 1260 Aug, [facility] [address] 68896- 2282 Aug, [facility] [address] 07525- 9770 Jul, [facility] [address] [place] [id number] [place] [address] 69453 -5188 Jul, Acute non-recurrent frontal sinusitis J01.10 [facility] [address] [place] [id number] [place] [address] 81822- 4958 Jul, CAD (coronary artery disease) I25.10 and GERD ( gastroesophageal reflux disease) K21.9 [facility] [address] 16281- 5605 14 Jul, 2017 Localized swelling, mass and lump, neck R22.1 [place] [address] [place] [id number] [place] [address] 22885- 5375 06 Jul, 2017 [place] [address] [place] [id number] [place] [address] 17151- 3414 15 Jun, 2017 Type 2 diabetes mellitus without complication E11.9 ; Primary insomnia F51.01 ; Alterations of sensations R20.9 ; Hyperlipidemia E78.5 ; GERD (gastroesophageal reflux disease) K21.9 ; 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 I10 ; vp scientific 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 ; Tobacco abuse Z72.0 ; Tobacco abuse counseling Z71.6 and CAD (coronary artery disease) I25.10 [place] [address] [place] [id number] [place] [address] 26899- 0042 May, [place] [address] 09970- 6311 May, Type 2 diabetes mellitus without complication E11.9 [place] [address] [place] [id number] [place] [address] 42888- 0328 May, [place] [address] 54864- 3774 March, [place] [address] [place] [id number] [place] [address] 24026- 2179 Feb, [facility] [address] [place] [id number] [place] [address] 83870 -6459 Jan, Acute suppurative otitis media of left ear with spontaneous rupture of tympanic membrane, recurrence not specified H66.012 [place] [address] [place] [id number] [place] [address] 59599- 1975 17 Dec, 2016 Type 2 diabetes mellitus without complication E11.9 ; Lumbago M54.5 ; Cervicalgia M54.2 ; Hyperlipidemia E78.5 ; GERD ( gastroesophageal reflux disease) K21.9 ; Chronic pain syndrome G89.4 ; Dysuria R30.0 and 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 I10 [place] [address] [place] [id number] [place] [address] 21167- 1572 Oct, [place] [address] 25829- 9456 30 Sep, 2016 Diabetic mononeuropathy associated with type 2 diabetes mellitus E11.41 and Coughing R05 [place] [address] [place] [id number] [place] [address] 07286- 5100 Sep, Diabetic mononeuropathy associated with type 2 diabetes mellitus E11.41 and Coughing R05 [place] [address] [place] [id number] [place] [address] 05009- 2887 18 Sep, 2016 Onychomycosis B35.1 ; Neuritis M79.2 and Type 2 diabetes mellitus without complication E11.9 [place] [address] [place] [id number] [place] [address] 03601- 9233 14 Sep, 2016 [place] [address] 39783- 4449 Sep, Cough R05 ; Seasonal allergic rhinitis due to pollen J30.1 and Acute upper respiratory infection, unspecified J06.9 [place] [address] [place] [id number] [place] [address] 90082- 8805 Sep, [place] [address] [place] [address] 16299- 7828 Aug, [place] [address] [place] [id number] [place] [address] 96366- 5513 13 Jul, 2016 Type 2 diabetes mellitus without complication E11.9 ; Chronic pain G89.29 ; 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 I10 and Acute non-recurrent maxillary sinusitis J01.00 [place] [address] [place] [id number] [place] [address] 20747- 9738 Jul, Chronic pain syndrome G89.4 ; Lumbago M54.5 and Cervicalgia M54.2 [place] [address] [place] [id number] [place] [address] 05334- 0317 Jul, [place] [address] [place] [id number] [place] [address] 08003- 8674 Jul, [place] [address] [place] [id number] [place] [address] 86227- 0869 Jun, Onychomycosis B35.1 ; Onychocryptosis L60.0 and DM neuro manif type II E11.49 [place] [id number] [place] [address] 68016- 9536 Jun, Type 2 diabetes mellitus without complication E11.9 ; Pain in unspecified hip M25.559 ; Other chronic pain G89.29 ; Lumbago M54.5 ; Chronic pain G89.29 ; Insomnia, unspecified G47.00 ; GERD (gastroesophageal reflux disease) K21.9 and Dental caries K02.9 [place] [id number] [place] [address] 00126- 3906 Jun, Type 2 diabetes mellitus without complication E11.9 ; Lumbago M54.5 ; Chronic pain G89.29 ; Insomnia, unspecified G47.00 ; GERD ( gastroesophageal reflux disease) K21.9 ; Dental caries K02.9 ; Pain in unspecified hip M25.559 and Other chronic pain G89.29 [place] [address] [place] [id number] [place] [address] 80146- 0693 May, [place] [address] [place] [id number] [place] [address] 70367- 5377 May, Type 2 diabetes mellitus without complication E11.9 ; 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 I10 ; Chronic pain syndrome G89.4 ; Other seasonal allergic rhinitis J30.2 and Insomnia, unspecified G47.00 [place] [address] [place] [id number] [place] [address] 05534- 8624 Apr, [place] [id number] [place] [address] 61132- 9026 Apr, Hypertension I10 and Chronic pain G89.29 [place] [address] [place] [id number] [place] [address] 84816- 2380 March, Onychomycosis B35.1 ; Onychocryptosis L60.0 and Type 2 diabetes mellitus without complication E11.[address] 50647- 8099 March, Type 2 diabetes mellitus without complication E11.9 ; 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 I10 ; Alterations of sensations R20.9 ; Chronic pain syndrome G89.4 ; Tobacco abuse Z72.0 and Tobacco abuse counseling Z71.[address] 60555- 5296 Feb, Cough R05 ; Type 2 diabetes mellitus without complication E11.9 ; Tobacco abuse counseling Z71.6 and Chronic pain G89.[address] 82676- 3725 Feb, [address] 28403- 5873 Feb, Type 2 diabetes mellitus without complication E11.9 ; Lumbago M54.5 ; Cervicalgia M54.2 ; Degenerative disc disease, lumbar M51.36 and Numbness and tingling of both legs 782.0 [facility] [address] [id number] 24 Jan, 2016 Dental caries K02.9 and Encounter for dental examination Z01.[address] 27624- 1293 Jan, Type 2 diabetes mellitus without complication E11.9 [place] [address] [place] [id number] [place] [address] 85523- 7721 Jan, Type 2 diabetes mellitus without complication E11.9 ; Numbness and tingling of both legs 782.0 ; Fibromyalgia M79.7 ; Hyperlipidemia E78.5 ; Lumbago M54.5 ; Cervicalgia M54.2 ; Hypertension I10 ; CAD (coronary artery disease) I25.10 ; Tobacco abuse Z72.0 ; Tobacco abuse counseling Z71.6 and GERD (gastroesophageal reflux disease) K21.9 [place] [address] 78058- 8061 Jan, [facility] [address] [address]- 5128 Dec, [facility] [address] [place] [address] [id number] Dec, Dental examination Z01.20 and Dental caries K02.9 [place] [address] [place] [id number] [place] [address] 74581- 1891 Dec, Edema R60.9 ; Type 2 diabetes mellitus without complication E11.9 ; Hypertension I10 and Mouth pain K13.79 [place] [address] 63074- 5492 Dec, Degenerative disc disease, lumbar M51.36 [place] [address] [place] [id number] [place] [address] 54612- 2147 Dec, [place] [address] [place] [id number] [place] [address] 65994- 3091 Nov, Insomnia, unspecified G47.00 [address] [place] [address] 34426- 3659 Nov, Type 2 diabetes mellitus without complication E11.9 ; Lumbago M54.5 ; Degenerative disc disease, lumbar M51.36 ; Fibromyalgia M79.7 ; Coronary artery disease I25.10 ; Hyperlipidemia E78.5 ; Controlled substance agreement signed Z79.899 ; Dysuria R30.0 ; Insomnia, unspecified G47.00 ; GERD ( gastroesophageal reflux disease) K21.9 ; Hypertension 401.9 and vp scientific 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 [place] [address] [place] [address] 76690- 4123 Nov, [place] [address] [place] [id number] [place] [address] 54111- 4696 Oct, Degenerative disc disease, lumbar M51.36 ; Cervicalgia M54.2 ; Insomnia, unspecified G47.00 ; Decreased GFR R94.4 and GERD ( gastroesophageal reflux disease) K21.9 [facility] [address] [place] [id number] [place] [address] 05210- 8240 Oct, Lumbago M54.5 [facility] [address] [place] [id number] [place] [address] 69285- 9476 Oct, Low back pain M54.5 [facility] [address] 59200- 2612 Oct, [facility] [address] 29536- 8092 Oct, Disorientation R41.0 [place] [address] 97463- 0850 Oct, Type 2 diabetes mellitus without complication E11.9 ; Disorientation R41.0 and Chest pain R07.9 [place] [address] 82433- 5528 Oct, [facility] [address] 65649- 4172 Sep, Low back pain M54.5 [facility] [address] 04216- 6936 Sep, Insomnia, unspecified G47.00 [facility] [address] [place] [id number] [place] [address] 78388- 2133 Aug, Degenerative disc disease, lumbar M51.36 ; Type 2 diabetes mellitus without complication E11.9 and Encounter for immunization Z23 [facility] [address] [place] [id number] [place] [address] 67153- 3663 Aug, [facility] [address] 53138- 3630 Aug, [facility] [address] [place] [id number] [place] [address] 77881- 2988 Aug, [facility] [address] 84666- 9730 Jul, [facility] [address] [place] [id number] [place] [address] 02053- 6670 Jun, [facility] [address] [place] [id number] [place] [address] 78310- 0913 Jun, Chest pain 786.50 and Lumbago 724.2 [facility] [address] [place] [id number] [place] [address] 90962- 3076 Jun, [facility] [address] [place] [id number] [place] [address] 78623- 1928 Jun, [facility] [address] [place] [id number] [place] [address] [id number] Jun, Dental examination V72.2 [facility] [address] [place] [id number] [place] [address] 65410- 7435 Jun, [facility] [address] [place] [id number] [place] [address] 77668- 0771 May, Left shoulder pain 719.41 and Numbness and tingling of both legs 782.0 [facility] [address] [place] [id number] [place] [address] 02658- 3920 May, Cough 786.2 ; Numbness and tingling of both legs 782.0 and Acute rhinitis 460 [facility] [address] [place] [id number] [place] [address] 63629- 5099 May, [facility] [address] [place] [id number] [place] [address] 68907- 7317 Apr, [facility] [address] [place] [id number] [place] [address] 12685- 4662 Apr, Bilateral lower extremity edema 782.3 ; Lumbago 724.2 and Insomnia 780.52 [facility] [address] [place] [id number] [place] [address] 01913- 0650 Apr, [facility] [address] [place] [id number] [place] [address] 49067- 7504 Apr, [facility] [address] [facility] [id number] [place] [address]- 0363 March, Seborrheic keratosis 702.19 and Skin lesion of face 709.9 [facility] [address] [id number] [place]- 1096 March, [facility] [address] [facility] [id number] [place] [address]- 6976 March, [facility] [address] [facility] [id number] [place] [address]- 1726 March, [facility] [address] [facility] [id number] [place] 7326 March, [facility] [address] [facility] [id number] [place] [address]- 9302 Feb, [facility] [address] [facility] [id number] [place] [address]- 0390 Feb, [facility] [address] [facility] [id number] [place] [address]- 2752 Jan, [facility] [address] [facility] [id number] [place] [address]- 5587 25 Jan, 2015 [facility] [address] [facility] [id number] [place] [address]- 0353 Jan, [facility] [address] [facility] [id number] [place] [address]- 7427 16 Jan, 2015 [facility] [address] [facility] [id number] [address]- 6558 16 Jan, 2015 [facility] [address] [facility] [id number] [place] [address]- 4198 16 Jan, 2015 [facility] [address] [facility] [id number] [place] [address]- 8128 13 Jan, 2015 [facility] [address] [facility] [id number] [address] Jan, [facility] [place] [facility] [address] [id number] [place] [address]- 0976 13 Jan, 2015 [facility] [place] [facility] [address] [id number] [place] [address]- 3330 13 Jan, 2015 [facility] [place] [facility] [address] [id number] [place] [address]- 5696 10 Jan, 2015 [facility] [place] [facility] [address] [id number] [place] [address]- 6905 Dec, [facility] [place] [facility] [address] [id number] [place] [address]- 8029 Dec, [facility] [place] [facility] [address] [id number] [place] [address]- 4657 Dec, [facility] [place] [facility] [address] [id number] [place] [address]- 9806 Dec, [facility] [place] [facility] [address] [id number] [place] [address]- 8702 Dec, [facility] [place] [facility] [address] [id number] [place] [address]- 6950 Dec, [facility] [place] [facility] [address] [id number] [place] [address]- 9883 Nov, [facility] [place] [facility] [address] [id number] [place] [address]- 5275 15 Nov, 2014 [facility] [place] [facility] [address] [id number] [place] [address]- 9531 14 Nov, 2014 [facility] [place] [facility] [address] [id number] [place] [address]- 7228 14 Nov, 2014 [facility] [place] [facility] [address] [id number] [place] [address]- 2784 13 Nov, 2014 [facility] [place] [facility] [address] [id number] [place] [address]- 6403 Nov, [facility] [place] [facility] [address] [id number] [place] [address]- 2276 Nov, [facility] [address] [id number] [place] [address]- 6013 Nov, [facility] [place] [facility] [address] [id number] [place] [address]- 9107 Nov, [facility] [place] [facility] [address] [id number] [place] [address]- 2207 Nov, [facility] [place] [facility] [address] [id number] [place] [address]- 2102 Nov, [facility] [place] [facility] [address] [id number] [place] [address]- 8307 Oct, [facility] [place] [facility] [address] [id number] [place] [address]- 0390 Oct, [facility] [address] [id number] [place] [address]- 7183 Oct, [facility] [place] [facility] [address] [id number] [place] [address]- 6867 Oct, [facility] [place] [facility] [address] [id number] [place] [address]- 3939 Oct, [facility] [place] [facility] [address] [id number] [place] [address]- 1382 Oct, [facility] [place] [facility] [address] [id number] [place] [address]- 6179 Oct, [facility] [place] [facility] [address] [id number] [place] [address]- 3052 Oct, [facility] [place] [facility] [address] [id number] [place] [address]- 7081 Oct, [facility] [place] [facility] [address] [id number] [place] [address]- 3660 Oct, [facility] [place] [facility] [address] [id number] [place] 8719 Sep, [facility] [place] [facility] [address] [id number] [place] [address]- 9028 Sep, [facility] [place] [facility] [address] [id number] [place] [address]- 0633 Sep, [facility] [place] [facility] [address] [id number] [place] [address]- 6693 Sep, [facility] [place] [facility] [address] [id number] [place] [address]- 0736 Sep, [facility] [place] [facility] [address] [id number] [place] [address] Sep, [facility] [place] [facility] [address] [id number] [place] [address] Sep, [facility] [place] [facility] [address] [id number] [place] [address] Sep, [facility] [place] [facility] [address] [id number] [place] [address] Sep, [facility] [place] [facility] [address] [id number] [place] [address] Sep, [facility] [place] [facility] [address] [id number] [place] [address] Sep, [facility] [place] [facility] [address] [id number] [place] [address] Sep, [facility] [place] [facility] [address] [id number] [place] [address] Sep, [facility] [place] [facility] [address] [id number] [place] [address] Aug, [facility] [place] [facility] [address] [id number] [place] [address] Aug, [facility] [place] [facility] [address] [id number] [place] [address] Aug, [facility] [place] [facility] [address] [id number] [place] [address] Aug, [facility] [place] [facility] [address] [id number] [place] [address] Aug, [facility] [place] [facility] [address] [id number] [place] [address] Aug, [facility] [place] [facility] [address] [id number] [place] [address] Aug, [facility] [place] [facility] [address] [id number] [place] [address] Aug, [facility] [place] [facility] [address] [id number] [place] [address] Aug, [facility] [place] [facility] [address] [id number] [place] [address] Aug, [facility] [place] [facility] [address] [id number] [place] [address] Aug, [facility] [place] [facility] [address] [id number], [place] [address] Aug, [facility] [place] [facility] [address] [id number], [place] [address] Aug, [facility] [place] [facility] [address] [id number], [place] [address] Aug, [facility] [place] [facility] [address] [id number], [place] [address] Aug, [facility] [place] [facility] [address] [id number], [place] [address] Aug, [facility] [place] [facility] [address] [id number], [place] [address] Aug, [facility] [place] [facility] [address] [id number], [place] [address] Aug, [facility] [place] [facility] [address] [id number] [address] Jul, [facility] [id number] [address] 30 Jul, 2014 [facility] [address] [facility] [id number] [address] 24 Jul, 2014 [facility] [address] [facility] [id number] [address] 24 Jul, 2014 [facility] [address] [facility] [id number] [address] Jul, [facility] [address] [facility] [id number] [address] Jul, [facility] [id number] [place] [address] Jul, [facility] [id number] [address] Jul, [facility] [id number] [place] [address] Jul, [facility] [id number] [address] Jul, [facility] [id number] [address] Jul, [facility] [id number] [address] Jul, [facility] [address] [address] Jul, [facility] [id number] [address] Jul, IMMUNIZATIONS No Known Immunizations SOCIAL HISTORY Never Assessed REASON FOR VISIT Requesting letter PLAN OF CARE VITAL SIGNS MEDICATIONS Unknown [...] r/t DDD Medical History fibromyalgia Medical History [place]-stent to LAD Surgical History cholecystectomy 1984 Surgical [...] History Chest Pain 12/2016 Hospitalization History [facility]- Influenza illness, hyperglycemia 2017 Hospitalization History [facility]- High BS (Pt left AMA) 01/05/2018 Hospitalization History [facility]- DKA and UTI. Discharged 01/14/2018 Hospitalization History [facility]- Nausea and Vomiting, cannot urinate 01/18/2018
--- OUTSIDE RECORDS SUMMARY | 2018-06-11 18:51 | XMS REPORT ---
Author Author BURKSADRIANA ReneELE Organization [facility] [place] [facility] Address [address] [place] [address] Care Team Providers Care Fisher Diver Net Name Role Phone MARCELINO BURKS Unavailable PROBLEMS Type Condition ICD9-CM Code YNY08-FY Code Onset Dates Condition Status SNOMED Code Problem Dental caries K02.9 Active 85312395 Problem Primary insomnia F51.01 Active 4707644 Problem Seasonal allergic rhinitis due to pollen J30.1 Active 21714454 Problem Type 2 diabetes mellitus with hyperglycemia E11.65 Active [id number] Problem Hyperlipidemia E78.5 Active 55341386 Problem Cervicalgia M54.2 Active 06276172 Problem Alterations of sensations R20.9 Active 486595274 Problem Other obesity due to excess calories E66.09 Active 696693817 Problem Arthritis M19.90 Active 1190926 Problem Diabetic mononeuropathy associated with type 2 diabetes mellitus E11.41 Active 532507649 Problem Body mass index (BMI) of 33.0-33.9 in adult Z68.33 Active 433250507 Problem GERD (gastroesophageal reflux disease) K21.9 Active 770401721 Problem residential 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 Active 982371268 Problem Degenerative disc disease, lumbar M51.36 Active 12653477 Problem Fibromyalgia M79.7 Active 03359570 Problem Tobacco abuse Z72.0 Active 78080307 Problem Tobacco abuse counseling Z71.6 Active 972224512 Problem 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 I10 Active 80316255 Problem Chronic pain syndrome G89.4 Active 886252738 Problem CAD (coronary artery disease) I25.10 Active 71261552 Problem DM neuro manif type II E11.49 Active 31633462 ALLERGIES Substance Reaction Event Type Date Status Zofran Unknown Drug Allergy Jan, Active Reglan restless leg; anything in reglan family Drug Allergy Jan, Active Toradol Unknown Drug Allergy Jan, Active LATEX Unknown Non Drug Allergy Jan, Active ENCOUNTERS Encounter Location Date Diagnosis [place] [id number] [place] [id number] [place] [address] 48019- 8137 Jul, [place] [address] 52950- 3111 Apr, Type 2 diabetes mellitus with hyperglycemia E11.65 [place] [address] 98209- 7153 14 Apr, 2018 Hyperlipidemia E78.5 ; Chronic pain syndrome G89.4 ; Cervicalgia M54.2 ; DM neuro manif type II E11.49 ; residential 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 ; Nausea alone R11.0 ; Essential hypertension I10 ; GERD ( gastroesophageal reflux disease) K21.9 ; CAD (coronary artery disease) I25.10 and Diabetic mononeuropathy associated with type 2 diabetes mellitus E11.41 [place] [address] 44419- 6430 Apr, [place] [address] 75827- 5649 March, Essential hypertension I10 ; DM neuro manif type II E11.49 and GERD (gastroesophageal reflux disease) K21.9 [place] [address] 55489- 0784 March, DM neuro manif type II E11.49 and GERD (gastroesophageal reflux disease) K21.9 [place] [id number] [place] [address] 95357- 0250 March, [place] [address] 35944- 4027 Feb, Tobacco abuse Z72.0 [place] [address] 64949- 2516 Feb, Tobacco abuse Z72.0 [place] [address] 33743- 0826 Feb, Hypokalemia E87.6 [place] [address] 83097- 0341 05 Feb, 2018 Hyperlipidemia E78.5 ; Essential hypertension I10 ; DM neuro manif type II E11.49 ; Fibromyalgia M79.7 ; Acute non-recurrent frontal sinusitis J01.10 ; Other obesity due to excess calories E66.09 and Body mass index (BMI) of 33.0-33.9 in adult Z68.33 [place] [address] 62859- 9398 05 Jan, 2018 Dysuria R30.0 [place] [address] 68181- 3584 05 Jan, 2018 [address] 35812- 1375 02 Jan, 2018 Acute cystitis with hematuria N30.01 ; DM neuro manif type II E11.49 ; residential 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 ; Essential hypertension I10 and Hospital discharge follow-up Z09 [place] [address] 51872- 8981 27 Dec, 2017 Chest pain, unspecified type R07.9 ; Dehydration E86.0 and Anuria R34 [place] [address] 61196- 6615 26 Dec, 2017 [place] [address] 13972- 5738 22 Dec, 2017 Hyperglycemia R73.9 ; Dehydration E86.0 and Acute cystitis with hematuria N30.01 [facility] [address] 48971 -8184 Dec, [facility] [address] 49263 -9289 Dec, [facility] [address] 98925 -3992 Dec, [facility] [address] [place] [address] 22808 -4998 16 Dec, 2017 Dysuria R30.0 ; Acute cystitis with hematuria N30.01 and Weakness R53.1 [place] [address] 10100- 1232 Dec, [place] [address] [id number] [place] [address] 51105- 6641 Nov, [place] [address] 62515- 5950 Nov, [place] [address] 28096- 4648 Nov, Essential hypertension I10 ; DM neuro manif type II E11.49 ; 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 ; Tobacco abuse Z72.0 ; Hyperlipidemia E78.5 ; Non-adherence to medical treatment Z91.19 ; GERD (gastroesophageal reflux disease) K21.9 ; Degenerative disc disease, lumbar M51.36 ; Fibromyalgia M79.7 ; Chronic pain syndrome G89.4 ; Dental caries K02.9 and Seasonal allergic rhinitis due to pollen J30.1 [place] [address] 43567- 4026 Nov, Alterations of sensations R20.9 [place] [id number] [place] [address] 14775- 5975 Sep, DM neuro manif type II E11.49 ; Hyperlipidemia E78.5 ; Degenerative disc disease, lumbar M51.36 and Chronic pain syndrome G89.4 [place] [id number] [place] [address] 24797- 0398 Sep, Arthritis M19.90 [place] [id number] [place] [address] 62299- 5073 Sep, Type 2 diabetes mellitus without complication E11.9 ; GERD ( gastroesophageal reflux disease) K21.9 ; Arthritis M19.90 and Chronic pain syndrome G89.4 [place] [id number] [place] [address] 87145- 4098 Sep, [facility] [facility] [address] [address]- 0055 Aug, [facility] [facility] [address] [place] [address] [id number] [place] [address] 25980- 1023 18 Aug, 2017 Type 2 diabetes mellitus without complication E11.9 [place] [address] [id number] [place] [address] 80253- 5216 17 Aug, 2017 [facility] [place] [facility] [id number] [place] [address] 85477- 9803 Aug, [facility] [place] [facility] [address] [id number] [place] [address] 26510- 1715 Aug, [place] [id number] [place] [address] 42573- 5424 26 Jul, 2017 [facility] [id number] [place] [address] 03178 -0776 22 Jul, 2017 Acute non-recurrent frontal sinusitis J01.10 [place] [id number] [place] [address] 76894- 6907 20 Jul, 2017 CAD (coronary artery disease) I25.10 and GERD ( gastroesophageal reflux disease) K21.9 [place] [id number] [address]- 8579 14 Jul, 2017 Localized swelling, mass and lump, neck R22.1 [place] [id number] [place] [address] 76732- 2895 06 Jul, 2017 [place] [id number] [place] [address] 13818- 9566 15 Jun, 2017 Type 2 diabetes mellitus without complication E11.9 ; Primary insomnia F51.01 ; Alterations of sensations R20.9 ; Hyperlipidemia E78.5 ; GERD (gastroesophageal reflux disease) K21.9 ; Essential hypertension I10 ; residential 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 ; Tobacco abuse Z72.0 ; Tobacco abuse counseling Z71.6 and CAD (coronary artery disease) I25.10 [place] [id number] [address]- 0445 May, [facility] [address] [id number] [place] [address] 56478- 6264 May, Type 2 diabetes mellitus without complication E11.9 [facility] [id number] [place] [address] 92535- 6434 May, [place] [address] 28566- 1868 March, [facility] [address] [place] [address] [id number] [place] [address] 69538- 0736 Feb, [facility] [id number] [place] [address] 74670 -7441 Jan, Acute suppurative otitis media of left ear with spontaneous rupture of tympanic membrane, recurrence not specified H66.012 [place] [id number] [place] [address] 05797- 8271 Dec, Type 2 diabetes mellitus without complication E11.9 ; Lumbago M54.5 ; Cervicalgia M54.2 ; Hyperlipidemia E78.5 ; GERD ( gastroesophageal reflux disease) K21.9 ; Chronic pain syndrome G89.4 ; Dysuria R30.0 and Essential hypertension I10 [place] [address] [id number] [place] [address] 40813- 8320 Oct, [place] [address] [id number] [place] [address] 96878- 1717 Sep, Diabetic mononeuropathy associated with type 2 diabetes mellitus E11.41 and Coughing R05 [place] [address] [id number] [place] [address] 04431- 3313 Sep, Diabetic mononeuropathy associated with type 2 diabetes mellitus E11.41 and Coughing R05 [place] [address] [address] [id number] [place] [address] 84708- 8138 Sep, Onychomycosis B35.1 ; Neuritis M79.2 and Type 2 diabetes mellitus without complication E11.9 [place] [address] [id number] [place] [address] 93623- 7239 14 Sep, 2016 [place] [address] 01145- 0958 03 Sep, 2016 Cough R05 ; Seasonal allergic rhinitis due to pollen J30.1 and Acute upper respiratory infection, unspecified J06.9 [place] [address] 04061- 2714 02 Sep, 2016 [place] [address] 96208- 3754 Aug, [place] [address] 91690- 3952 13 Jul, 2016 Type 2 diabetes mellitus without complication E11.9 ; Chronic pain G89.29 ; Essential hypertension I10 and Acute non-recurrent maxillary sinusitis J01.00 [place] [address] 42789- 9553 Jul, Chronic pain syndrome G89.4 ; Lumbago M54.5 and Cervicalgia M54.2 [place] [address] 73152- 0138 Jul, [place] [address] 31970- 1594 Jul, [place] [address] 97356- 5651 Jun, Onychomycosis B35.1 ; Onychocryptosis L60.0 and DM neuro manif type II E11.49 [place] [address] 35898- 1739 04 Jun, 2016 Type 2 diabetes mellitus without complication E11.9 ; Pain in unspecified hip M25.559 ; Other chronic pain G89.29 ; Lumbago M54.5 ; Chronic pain G89.29 ; Insomnia, unspecified G47.00 ; GERD (gastroesophageal reflux disease) K21.9 and Dental caries K02.9 [place] [address] [address] [id number] [place] [address] 05321- 4597 Jun, Type 2 diabetes mellitus without complication E11.9 ; Lumbago M54.5 ; Chronic pain G89.29 ; Insomnia, unspecified G47.00 ; GERD ( gastroesophageal reflux disease) K21.9 ; Dental caries K02.9 ; Pain in unspecified hip M25.559 and Other chronic pain G89.29 [place] [address] 08365- 1487 May, [place] [address] 90420- 7747 May, Type 2 diabetes mellitus without complication E11.9 ; Essential hypertension I10 ; Chronic pain syndrome G89.4 ; Other seasonal allergic rhinitis J30.2 and Insomnia, unspecified G47.[address] 18282- 2536 Apr, [place] [address] 34085- 7064 Apr, Hypertension I10 and Chronic pain G89.[address] 37783- 4373 March, Onychomycosis B35.1 ; Onychocryptosis L60.0 and Type 2 diabetes mellitus without complication E11.9 [place] [id number] [place] [address] 11655- 4925 March, Type 2 diabetes mellitus without complication E11.9 ; Essential hypertension I10 ; Alterations of sensations R20.9 ; Chronic pain syndrome G89.4 ; Tobacco abuse Z72.0 and Tobacco abuse counseling Z71.[address] 60309- 6232 Feb, Cough R05 ; Type 2 diabetes mellitus without complication E11.9 ; Tobacco abuse counseling Z71.6 and Chronic pain G89.[address] 01596- 7470 Feb, [place] [address] [place] [id number] [place] [address] 35097- 2197 Feb, Type 2 diabetes mellitus without complication E11.9 ; Lumbago M54.5 ; Cervicalgia M54.2 ; Degenerative disc disease, lumbar M51.36 and Numbness and tingling of both legs 782.0 [facility] [address] [id number] Jan, Dental caries K02.9 and Encounter for dental examination Z01.20 [place] [address] 14913- 5820 Jan, Type 2 diabetes mellitus without complication E11.9 [place] [address] 90806- 8624 Jan, Type 2 diabetes mellitus without complication E11.9 ; Numbness and tingling of both legs 782.0 ; Fibromyalgia M79.7 ; Hyperlipidemia E78.5 ; Lumbago M54.5 ; Cervicalgia M54.2 ; Hypertension I10 ; CAD (coronary artery disease) I25.10 ; Tobacco abuse Z72.0 ; Tobacco abuse counseling Z71.6 and GERD (gastroesophageal reflux disease) K21.9 [place] [address] [place] [id number] [place] [address] 17840- 4806 Jan, [place] [address] [place] [id number] [place] [address] 73718- 4611 Dec, [facility] [address] [id number] Dec, Dental examination Z01.20 and Dental caries K02.9 [place] [address] 99188- 8062 Dec, Edema R60.9 ; Type 2 diabetes mellitus without complication E11.9 ; Hypertension I10 and Mouth pain K13.79 [place] [id number] [place] [address] 72014- 4199 Dec, Degenerative disc disease, lumbar M51.36 [place] [address] [id number] [place] [address] 93628- 1673 Dec, [place] [address] 67387- 7623 Nov, Insomnia, unspecified G47.00 [place] [address] 43437- 2692 Nov, Type 2 diabetes mellitus without complication E11.9 ; Lumbago M54.5 ; Degenerative disc disease, lumbar M51.36 ; Fibromyalgia M79.7 ; Coronary artery disease I25.10 ; Hyperlipidemia E78.5 ; Controlled substance agreement signed Z79.899 ; Dysuria R30.0 ; Insomnia, unspecified G47.00 ; GERD ( gastroesophageal reflux disease) K21.9 ; Hypertension 401.9 and 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 [place] [address] 63025- 6771 Nov, [place] [address] 09398- 4654 Oct, Degenerative disc disease, lumbar M51.36 ; Cervicalgia M54.2 ; Insomnia, unspecified G47.00 ; Decreased GFR R94.4 and GERD ( gastroesophageal reflux disease) K21.9 [place] [address] [id number] [place] [address] 48254- 4348 Oct, Lumbago M54.5 [place] [address] 06897- 9847 Oct, Low back pain M54.5 [place] [address] 15280- 2262 Oct, [place] [address] 62595- 4073 Oct, Disorientation R41.0 [place] [address] 86647- 0223 Oct, Type 2 diabetes mellitus without complication E11.9 ; Disorientation R41.0 and Chest pain R07.9 [facility] [id number] [place] [address] 30445- 4390 Oct, [facility] [id number] [place] [address] 05603- 1585 Sep, Low back pain M54.5 [facility] [facility] [address] 98334- 6563 Sep, Insomnia, unspecified G47.00 [facility] [address] 68932- 0458 Aug, Degenerative disc disease, lumbar M51.36 ; Type 2 diabetes mellitus without complication E11.9 and Encounter for immunization Z23 [facility] [address] 08202- 1217 Aug, [facility] [address] 20379- 9445 Aug, [facility] [address] 49415- 2936 Aug, [facility] [address] 37472- 2562 Jul, [facility] [id number] [place] [address] 69097- 5578 Jun, [facility] [facility] [id number] [place] [address] 63547- 5218 Jun, Chest pain 786.50 and Lumbago 724.2 [facility] [id number] [place] [address] 92787- 3335 Jun, [facility] [id number] [place] [address] 75771- 2533 Jun, [facility] [address] [id number] [place] [address] [id number] Jun, Dental examination V72.2 [facility] [id number] [address]- 2237 Jun, [facility] [address] [place] [id number] [place] [address] 33778- 0128 May, Left shoulder pain 719.41 and Numbness and tingling of both legs 782.0 [facility] [id number] [place] [address] 45310- 5017 May, Cough 786.2 ; Numbness and tingling of both legs 782.0 and Acute rhinitis 460 [facility] [address] [place] [id number] [place] [address] 06472- 9605 May, [facility] [id number] [place] [address] 02754- 7632 Apr, [facility] [address] [place] [id number] [place] [address] 07274- 4420 Apr, Bilateral lower extremity edema 782.3 ; Lumbago 724.2 and Insomnia 780.52 [facility] [address] [id number] [place] [address] 66671- 0624 Apr, [facility] [address] [id number] [place] [address] 30831- 4687 Apr, [facility] [id number] [place] [address] 95410- 7746 March, Seborrheic keratosis 702.19 and Skin lesion of face 709.9 [facility] [address] [address]- 7448 March, [facility] [address] [id number] [place] [address] 79728- 5583 March, [facility] [facility] [id number] [place] [address] 30008- 0951 March, [facility] [facility] [address] [place] [id number] [place] [address] 58862- 9892 March, [facility] [place] [facility] [address] [id number] [place] [address]- 1020 14 Feb, 2015 [facility] [place] [facility] [address] [id number] [place] [address]- 2885 13 Feb, 2015 [facility] [place] [facility] [address] [id number] [place] [address]- 2151 25 Jan, 2015 [facility] [place] [facility] [address] [id number] [place] [address]- 0823 25 Jan, 2015 [facility] [place] [facility] [address] [id number] [place] [address]- 3862 16 Jan, 2015 [facility] [place] [facility] [address] [id number] [place] [address]- 9695 16 Jan, 2015 [facility] [place] [facility] [address] [id number] [place] [address]- 7571 16 Jan, 2015 [facility] [place] [facility] [address] [id number] [place] [address]- 6020 16 Jan, 2015 [facility] [place] [facility] [address] [id number] [place] [address]- 0149 13 Jan, 2015 [facility] [place] [facility] [address] [id number] [place] [address]- 2614 13 Jan, 2015 [facility] [place] [facility] [address] [id number] [place] [address]- 0672 13 Jan, 2015 [facility] [place] [facility] [address] [id number] [place] [address]- 5651 13 Jan, 2015 [facility] [place] [facility] [address] [id number] [place] [address]- 6672 10 Jan, 2015 [facility] [place] [facility] [address] [id number] [place] [address]- 1225 27 Dec, 2014 [facility] [place] [facility] [address] [id number] [place] [address]- 4781 27 Dec, 2014 [facility] [place] [facility] [address] [id number] [place] [address]- 2843 Dec, [facility] [place] [facility] [address] [id number] [place] [address]- 3757 Dec, [facility] [place] [facility] [address] [id number] [place] [address]- 6516 Dec, [facility] [place] [facility] [address] [id number] [place] [address]- 8779 Dec, [facility] [place] [facility] [address] [id number] [address]- 2031 Nov, [facility] [place] [facility] [address] [id number] [place] [address]- 3745 Nov, [facility] [place] [facility] [address] [id number] [place] [address]- 6872 Nov, [facility] [place] [facility] [address] [id number] [place] [address]- 3905 Nov, [facility] [place] [facility] [address] [id number] [address]- 0377 Nov, [facility] [place] [facility] [address] [id number] [address]- 6907 Nov, [facility] [place] [facility] [address] [id number] [place] [address]- 5351 Nov, [facility] [place] [facility] [address] [id number] [address]- 3879 Nov, [facility] [place] [facility] [address] [id number] [address]- 9304 Nov, [facility] [place] [facility] [address] [id number] [address]- 1020 Nov, [facility] [place] [facility] [address] [id number] [address]- 1438 Nov, [facility] [place] [facility] [address] [id number] [place] [address]- 2660 Oct, [facility] [place] [facility] [address] [id number] [place] [address]- 7101 Oct, [facility] [place] [facility] [address] [id number] [place] [address]- 1097 Oct, [facility] [place] [facility] [address] [id number] [place] [address]- 6698 Oct, [facility] [place] [facility] [address] [id number] [place] [address]- 0517 Oct, [facility] [place] [facility] [address] [id number] [place] [address]- 0000 Oct, [facility] [place] [facility] [address] [id number] [place] [address]- 7493 Oct, [facility] [place] [facility] [address] [id number] [place] [address]- 7372 Oct, [facility] [place] [facility] [address] [id number] [place] [address]- 1103 Oct, [facility] [place] [facility] [address] [id number] [place] [address]- 5036 Oct, [facility] [place] [facility] [address] [id number] [place] [address]- 9336 Sep, [facility] [place] [facility] [address] [id number] [place] [id number] Sep, [facility] [place] [facility] [address] [id number] [place] [address] Sep, [facility] [place] [facility] [address] [id number] [place] [address] Sep, [facility] [place] [facility] [address] [id number] [place] [address] Sep, [facility] [place] [facility] [address] [id number] [place] [address] Sep, [facility] [place] [facility] [address] [id number] [place] [address] Sep, [facility] [place] [facility] [address] [id number] [place] [address] Sep, [facility] [place] [facility] [address] [id number] [place] [address] Sep, [facility] [place] [facility] [address] [id number] [place] [address] Sep, [facility] [place] [facility] [address] [id number] [place] [address] Sep, [facility] [place] [facility] [address] [id number] [place] [address] Sep, [facility] [place] [facility] [address] [id number] [place] [address] Sep, [facility] [place] [facility] [address] [id number] [place] [address] 30 Aug, 2014 [facility] [place] [facility] [address] [id number] [place] [address] 30 Aug, 2014 [facility] [place] [facility] [address] [id number] [place] [address] 30 Aug, 2014 [facility] [place] [facility] [address] [id number] [place] [address] 30 Aug, 2014 [facility] [place] [facility] [address] [id number] [place] [address] 30 Aug, 2014 [facility] [place] [facility] [address] [id number] [place] [address] 30 Aug, 2014 [facility] [place] [facility] [address] [id number] [place] [address] Aug, [facility] [place] [facility] [address] [id number] [place] [address] Aug, [facility] [place] [facility] [address] [id number] [place] [address] Aug, [facility] [place] [facility] [address] [id number] [place] [address] Aug, [facility] [place] [facility] [address] [id number] [place] [address] Aug, [facility] [place] [facility] [address] [id number] [place] [address] Aug, [facility] [place] [facility] [address] [id number] [place] [address] Aug, 2013 [facility] [place] [facility] [address] [id number] [place] [address] Aug, [facility] [place] [facility] [address] [id number] [place] [address] Aug, [facility] [place] [facility] [address] [id number] [place] [address] Aug, [facility] [place] [facility] [address] [id number] [place] [address] Aug, [facility] [place] [facility] [address] [id number] [place] [address] Aug, [facility] [place] [facility] [address] [id number] [place] [address] 30 Jul, 2013 [facility] [place] [facility] [address] [id number] [place] [address] 30 Sep, 2013 [facility] [place] [facility] [address] [id number] [place] [address] 24 Sep, 2013 [facility] [place] [facility] [address] [id number] [address] 24 Sep, 2013 [facility] [place] [facility] [address] [id number] [place] [address] 23 Sep, 2013 [facility] [place] [facility] [address] [id number] [place] [address] 23 Sep, 2013 [facility] [place] [facility] [address] [id number] [address] 15 Sep, 2013 [facility] [place] [facility] [address] [facility] [id number] [address] Jul, [facility] [place] [facility] [id number] [address] Jul, [facility] [place] [facility] [id number] [address] Jul, [facility] [place] [facility] [address] [id number] [address] Jul, [facility] [place] [facility] [address] [id number] [address] Jul, [facility] [place] [facility] [id number] [address] Jul, [facility] [place] [facility] [id number] [address] Jul, IMMUNIZATIONS No Known Immunizations SOCIAL HISTORY Never Assessed REASON FOR VISIT [facility] Follow up. Check urine --tcuppettRN PLAN OF CARE Activity Details Follow Up 3 Months, prn Reason:CHM VITAL SIGNS Height 60 in 2018-01-21 Weight 175.1 lbs 2018-01-21 Temperature 98.0 degrees Fahrenheit 2018-01-21 Heart Rate 76 bpm 2018-01-21 Respiratory Rate 20 2018-01-21 BMI 34.19 kg/m2 2018-01-21 Blood pressure systolic 138 mmHg 2018-01-21 Blood pressure diastolic 74 mmHg 2018-01-21 MEDICATIONS Medication Instructions Dosage Frequency Start Date End Date Duration Status Omeprazole 20 mg Orally Once a day TAKE ONE CAPSULE BY MOUTH ONCE DAILY 24h Active Aspirin 81 MG Orally Once a day 1 tablet 24h Active Percocet 10-325 MG Orally every 4- 6 hrs 1 tablet as needed Active Benadryl Active Diclofenac Sodium 75 MG TAKE ONE TABLET BY MOUTH TWICE DAILY WITH FOOD OR MILK 30 Not-Taking Tradjenta 5 MG TAKE ONE TABLET BY MOUTH ONCE DAILY Active Gabapentin 600 MG Orally 3 times a day 1 tablet 8h Active Breo Ellipta 100-25 MCG/INH Inhalation Once a day 1 puff 24h Not- Taking Nitrofurantoin Macrocrystal 100 mg Orally twice a day 1 capsule with food or milk 12h Jan, Jan, 07 days Active Varenicline Tartrate 1 MG Orally Twice a day take 1/2 tab daily on days 1-3, then 1/2 tab twice daily on day 4-6, then 1 tablet twice daily 12h 18 Nov, 2017 Jan, 30 day(s) Not-Taking Levemir FlexTouch 100 UNIT/ML Subcutaneous 2 times a day INJECT 58 UNITS SUBCUTANEOUSLY TWICE DAILY 12h Active Humalog 100 UNIT/ML Active Lipitor 20 mg Orally Once a day take 1 tablet by Oral route at bedtime 1 time per day 24h Active Norvasc 5 MG TAKE 1 TABLET BY MOUTH ONCE A DAY Active RESULTS No Results PROCEDURES No Known [...] Influenza illness, hyperglycemia 2017 Hospitalization History ED [place]- High BS (Pt left AMA) 01/05/2018 Hospitalization History [facility]- DKA and UTI. Discharged 01/14/2018 Hospitalization History ED [place]- Nausea and Vomiting, cannot urinate 01/18/2018
--- OUTSIDE RECORDS SUMMARY | 2018-06-11 18:52 | XMS REPORT ---
Author Author BURKSMARCELINO Rene [facility] Address [address] [place] [address] Care Team Providers Care Keno Attendant Name Role Phone MARCELINO BURKS Unavailable PROBLEMS Type Condition ICD9-CM Code [id number] Code Onset Dates Condition Status SNOMED Code Problem Dental caries K02.9 Active 05242386 Problem Primary insomnia F51.01 Active 6982919 Problem Seasonal allergic rhinitis due to pollen J30.1 Active 94487335 Problem Type 2 diabetes mellitus with hyperglycemia E11.65 Active [id number] Problem Hyperlipidemia E78.5 Active 97385250 Problem Cervicalgia M54.2 Active 00100480 Problem Alterations of sensations R20.9 Active 912895260 Problem Other obesity due to excess calories E66.09 Active 054032102 Problem Arthritis M19.90 Active 4575595 Problem Diabetic mononeuropathy associated with type 2 diabetes mellitus E11.41 Active 834577909 Problem Body mass index (BMI) of 33.0-33.9 in adult Z68.33 Active 962489561 Problem GERD (gastroesophageal reflux disease) K21.9 Active 886518890 Problem retirement 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 Active 427611658 Problem Degenerative disc disease, lumbar M51.36 Active 54224169 Problem Fibromyalgia M79.7 Active 67015986 Problem Tobacco abuse Z72.0 Active 76442039 Problem Tobacco abuse counseling Z71.6 Active 409787721 Problem Essential hypertension I10 Active 53541147 Problem Chronic pain syndrome G89.4 Active 890492602 Problem CAD (coronary artery disease) I25.10 Active 63131450 Problem DM neuro manif type II E11.49 Active 83007972 ALLERGIES No Information ENCOUNTERS Encounter Location Date Diagnosis [facility] [place] [address] [facility] [id number] [address] Jul, [facility] [place] [address] [id number] [address] Apr, Type 2 diabetes mellitus with hyperglycemia E11.65 [place] [address] [address]- 5578 Apr, Hyperlipidemia E78.5 ; Chronic pain syndrome G89.4 ; Cervicalgia M54.2 ; DM neuro manif type II E11.49 ; 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 ; Nausea alone R11.0 ; Essential hypertension I10 ; GERD ( gastroesophageal reflux disease) K21.9 ; CAD (coronary artery disease) I25.10 and Diabetic mononeuropathy associated with type 2 diabetes mellitus E11.41 [place] [address] 6[address]62- 1852 Apr, [place] [address] 23734- 6761 March, Essential hypertension I10 ; DM neuro manif type II E11.49 and GERD (gastroesophageal reflux disease) K21.9 [place] [address] 15518- 1514 March, DM neuro manif type II E11.49 and GERD (gastroesophageal reflux disease) K21.9 [place] [address] 67158- 9458 March, [place] [address] 92768- 1163 Feb, Tobacco abuse Z72.0 [place] [address] 99125- 7357 Feb, Tobacco abuse Z72.0 [place] [address] 08245- 1493 Feb, Hypokalemia E87.6 [place] [address] 37367- 5875 Feb, Hyperlipidemia E78.5 ; Essential hypertension I10 ; DM neuro manif type II E11.49 ; Fibromyalgia M79.7 ; Acute non-recurrent frontal sinusitis J01.10 ; Other obesity due to excess calories E66.09 and Body mass index (BMI) of 33.0-33.9 in adult Z68.33 [place] [address] 36945- 9136 05 Jan, 2018 Dysuria R30.0 [place] [address] 74877- 8014 05 Jan, 2018 Dysuria R30.0 [place] [address] 50194- 6151 02 Jan, 2018 Acute cystitis with hematuria N30.01 ; DM neuro manif type II E11.49 ; 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 ; Essential hypertension I10 and Hospital discharge follow-up Z09 [place] [address] 8[address]- 0000 27 Dec, 2017 Chest pain, unspecified type R07.9 ; Dehydration E86.0 and Anuria R34 [place] [address] 25164- 4375 Dec, [place] [address] 96142- 1142 Dec, Hyperglycemia R73.9 ; Dehydration E86.0 and Acute cystitis with hematuria N30.01 [facility] [address] [place] [address] 65611 -5691 Dec, [facility] [address] [place] [address] 24693 -1887 Dec, [facility] [address] [place] [address] 68776 -0867 Dec, [facility] [address] [place] [address] 54946 -3051 16 Dec, 2017 Dysuria R30.0 ; Acute cystitis with hematuria N30.01 and Weakness R53.[address] 17828- 2465 Dec, [place] [id number] [place] [address] 29906- 4576 Nov, [place] [address] 67847- 3574 Nov, [place] [address] 04946- 1931 Nov, Essential hypertension I10 ; DM neuro manif type II E11.49 ; 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 ; Tobacco abuse Z72.0 ; Hyperlipidemia E78.5 ; Non-adherence to medical treatment Z91.19 ; GERD (gastroesophageal reflux disease) K21.9 ; Degenerative disc disease, lumbar M51.36 ; Fibromyalgia M79.7 ; Chronic pain syndrome G89.4 ; Dental caries K02.9 and Seasonal allergic rhinitis due to pollen J30.[address] 79525- 2478 Nov, Alterations of sensations R20.9 [place] [address] 44095- 6412 Sep, DM neuro manif type II E11.49 ; Hyperlipidemia E78.5 ; Degenerative disc disease, lumbar M51.36 and Chronic pain syndrome G89.4 [place] [id number] [place] [address] 16688- 3663 Sep, Arthritis M19.90 [place] [address] 54647- 0506 Sep, Type 2 diabetes mellitus without complication E11.9 ; GERD ( gastroesophageal reflux disease) K21.9 ; Arthritis M19.90 and Chronic pain syndrome G89.4 [place] [address] 39644- 3214 Sep, [place] [id number] [place] [address] 08470- 0762 Aug, [place] [address] 15445- 0041 18 Aug, 2017 Type 2 diabetes mellitus without complication E11.9 [facility] [place] [address] [address] 17 Aug, 2017 [facility] [place] [id number] [place] [address] 85116- 1876 16 Aug, 2017 [facility] [place] [id number] [place] [address] 58632- 8223 Aug, [facility] [place] [id number] [place] [address] 47878- 4448 26 Jul, 2017 [facility] [id number] [place] [address] 61785 -3280 22 Jul, 2017 Acute non-recurrent frontal sinusitis J01.10 [place] [id number] [place] [address] 11579- 9144 20 Jul, 2017 CAD (coronary artery disease) I25.10 and GERD ( gastroesophageal reflux disease) K21.9 [place] [id number] [place] [address] 55822- 0020 14 Jul, 2017 Localized swelling, mass and lump, neck R22.1 [place] [id number] [place] [address] 07237- 1270 06 Jul, 2017 [place] [id number] [place] [address] 75069- 6556 Jun, Type 2 diabetes mellitus without complication E11.9 ; Primary insomnia F51.01 ; Alterations of sensations R20.9 ; Hyperlipidemia E78.5 ; GERD (gastroesophageal reflux disease) K21.9 ; Essential hypertension I10 ; 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 ; Tobacco abuse Z72.0 ; Tobacco abuse counseling Z71.6 and CAD (coronary artery disease) I25.10 [facility] [place] [address] [place] [address] 30813- 4420 May, [place] [id number] [place] [address] 09467- 2368 May, Type 2 diabetes mellitus without complication E11.9 [facility] [place] [address] [place] [address] 34835- 5616 May, [facility] [place] [id number] [place] [address] 92559- 9098 March, [facility] [place] [id number] [place] [address] 97639- 3104 Feb, [facility] [id number] [place] [address] 82748 -7655 Jan, Acute suppurative otitis media of left ear with spontaneous rupture of tympanic membrane, recurrence not specified H66.012 [place] [id number] [place] [address] 05273- 2945 Dec, Type 2 diabetes mellitus without complication E11.9 ; Lumbago M54.5 ; Cervicalgia M54.2 ; Hyperlipidemia E78.5 ; GERD ( gastroesophageal reflux disease) K21.9 ; Chronic pain syndrome G89.4 ; Dysuria R30.0 and Essential hypertension I10 [place] [id number] [place] [address] 20447- 0292 Oct, [place] [id number] [place] [address] 54331- 0489 30 Sep, 2016 Diabetic mononeuropathy associated with type 2 diabetes mellitus E11.41 and Coughing R05 [place] [id number] [place] [address] 46378- 7150 Sep, Diabetic mononeuropathy associated with type 2 diabetes mellitus E11.41 and Coughing R05 [facility] [place] [id number] [place] [address] 00926- 8148 Sep, Onychomycosis B35.1 ; Neuritis M79.2 and Type 2 diabetes mellitus without complication E11.9 [facility] [place] [id number] [place] [address] 47329- 3699 Sep, [facility] [place] [id number] [place] [address] 83239- 6546 Sep, Cough R05 ; Seasonal allergic rhinitis due to pollen J30.1 and Acute upper respiratory infection, unspecified J06.9 [place] [id number] [place] [address] 37211- 5745 Sep, [place] [address] 09188- 9348 Aug, [place] [address] 32005- 3486 Jul, Type 2 diabetes mellitus without complication E11.9 ; Chronic pain G89.29 ; Essential hypertension I10 and Acute non-recurrent maxillary sinusitis J01.00 [place] [address] 06248- 7428 Jul, Chronic pain syndrome G89.4 ; Lumbago M54.5 and Cervicalgia M54.2 [place] [address] 27618- 7909 Jul, [place] [address] 18334- 9434 Jul, [place] [address] 15664- 6075 Jun, Onychomycosis B35.1 ; Onychocryptosis L60.0 and DM neuro manif type II E11.49 [place] [id number] [place] [address] 90283- 3909 Jun, Type 2 diabetes mellitus without complication E11.9 ; Pain in unspecified hip M25.559 ; Other chronic pain G89.29 ; Lumbago M54.5 ; Chronic pain G89.29 ; Insomnia, unspecified G47.00 ; GERD (gastroesophageal reflux disease) K21.9 and Dental caries K02.9 [place] [id number] [place] [address] 41182- 8144 Jun, Type 2 diabetes mellitus without complication E11.9 ; Lumbago M54.5 ; Chronic pain G89.29 ; Insomnia, unspecified G47.00 ; GERD ( gastroesophageal reflux disease) K21.9 ; Dental caries K02.9 ; Pain in unspecified hip M25.559 and Other chronic pain G89.29 [place] [address] 49011- 2789 May, [place] [address] 46911- 1219 May, Type 2 diabetes mellitus without complication E11.9 ; Essential hypertension I10 ; Chronic pain syndrome G89.4 ; Other seasonal allergic rhinitis J30.2 and Insomnia, unspecified G47.00 [place] [address] 43018- 5154 Apr, [address] 52520- 2542 Apr, Hypertension I10 and Chronic pain G89.29 [place] [address] 65044- 9899 March, Onychomycosis B35.1 ; Onychocryptosis L60.0 and Type 2 diabetes mellitus without complication E11.9 [place] [address] 66597- 6817 March, Type 2 diabetes mellitus without complication E11.9 ; Essential hypertension I10 ; Alterations of sensations R20.9 ; Chronic pain syndrome G89.4 ; Tobacco abuse Z72.0 and Tobacco abuse counseling Z71.6 [place] [address] 92253- 1414 Feb, Cough R05 ; Type 2 diabetes mellitus without complication E11.9 ; Tobacco abuse counseling Z71.6 and Chronic pain G89.29 [place] [address] 50249- 5366 Feb, [place] [address] 73496- 1244 Feb, Type 2 diabetes mellitus without complication E11.9 ; Lumbago M54.5 ; Cervicalgia M54.2 ; Degenerative disc disease, lumbar M51.36 and Numbness and tingling of both legs 782.0 [facility] [id number] [place] [address] [id number] Jan, Dental caries K02.9 and Encounter for dental examination Z01.[address] 39190- 7863 Jan, Type 2 diabetes mellitus without complication E11.9 [place] [address] 44922- 1343 Jan, Type 2 diabetes mellitus without complication E11.9 ; Numbness and tingling of both legs 782.0 ; Fibromyalgia M79.7 ; Hyperlipidemia E78.5 ; Lumbago M54.5 ; Cervicalgia M54.2 ; Hypertension I10 ; CAD (coronary artery disease) I25.10 ; Tobacco abuse Z72.0 ; Tobacco abuse counseling Z71.6 and GERD (gastroesophageal reflux disease) K21.[address] 44957- 6548 Jan, [address] 18162- 7416 Dec, [facility] [id number] [place] [address] [id number] Dec, Dental examination Z01.20 and Dental caries K02.[address] 11481- 2551 Dec, Edema R60.9 ; Type 2 diabetes mellitus without complication E11.9 ; Hypertension I10 and Mouth pain K13.[address] 29088- 3210 Dec, Degenerative disc disease, lumbar M51.[address] 01072- 3728 Dec, [address] [place] [address]- 2844 Nov, Insomnia, unspecified G47.00 [place] [address] 11165- 6687 Nov, Type 2 diabetes mellitus without complication E11.9 ; Lumbago M54.5 ; Degenerative disc disease, lumbar M51.36 ; Fibromyalgia M79.7 ; Coronary artery disease I25.10 ; Hyperlipidemia E78.5 ; Controlled substance agreement signed Z79.899 ; Dysuria R30.0 ; Insomnia, unspecified G47.00 ; GERD ( gastroesophageal reflux disease) K21.9 ; Hypertension 401.9 and 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 [place] [address] 44886- 7173 Nov, [place] [address] 38761- 9122 Oct, Degenerative disc disease, lumbar M51.36 ; Cervicalgia M54.2 ; Insomnia, unspecified G47.00 ; Decreased GFR R94.4 and GERD ( gastroesophageal reflux disease) K21.9 [place] [address] 43282- 7558 Oct, Lumbago M54.5 [place] [address] 05117- 1063 Oct, Low back pain M54.5 [place] [address] 44266- 8576 Oct, [place] [address] 64702- 7183 Oct, Disorientation R41.0 [place] [address] 26843- 5791 Oct, Type 2 diabetes mellitus without complication E11.9 ; Disorientation R41.0 and Chest pain R07.9 [place] [address] 38390- 0968 Oct, [facility] [place] [id number] [place] [address] 05400- 6705 Sep, Low back pain M54.5 [facility] [place] [id number] [place] [address] 24768- 7994 Sep, Insomnia, unspecified G47.00 [facility] [place] [id number] [place] [address] 22550- 4145 Aug, Degenerative disc disease, lumbar M51.36 ; Type 2 diabetes mellitus without complication E11.9 and Encounter for immunization Z23 [facility] [place] [id number] [place] [address] 32189- 6096 Aug, [facility] [place] [id number] [place] [address] 88126- 1818 Aug, [facility] [place] [id number] [place] [address] 23750- 8211 Aug, [facility] [place] [id number] [place] [address] 43076- 1021 Jul, [facility] [place] [id number] [place] [address] 09813- 6103 Jun, [facility] [place] [id number] [place] [address] 66319- 2749 Jun, Chest pain 786.50 and Lumbago 724.2 [facility] [place] [id number] [place] [address] 70190- 6203 Jun, [facility] [place] [id number] [place] [address] 04579- 7817 Jun, [facility] [id number] [place] [address] [id number] Jun, Dental examination V72.2 [facility] [place] [id number] [place] [address] 00517- 7122 Jun, [facility] [place] [id number] [place] [address] 27861- 0703 May, Left shoulder pain 719.41 and Numbness and tingling of both legs 782.0 [facility] [place] [id number] [place] [address] 58772- 6352 May, Cough 786.2 ; Numbness and tingling of both legs 782.0 and Acute rhinitis 460 [facility] [place] [id number] [place] [address] 80658- 0119 May, [facility] [place] [id number] [place] [address] 29353- 6688 Apr, [facility] [place] [id number] [place] [address] 21339- 4135 Apr, Bilateral lower extremity edema 782.3 ; Lumbago 724.2 and Insomnia 780.52 [facility] [place] [id number] [place] [address] 93340- 7159 Apr, [facility] [place] [id number] [place] [address] 08574- 4623 Apr, [facility] [place] [id number] [place] [address] 60300- 0072 March, Seborrheic keratosis 702.19 and Skin lesion of face 709.9 [facility] [place] [id number] [place] [address] 66090- 0414 March, [facility] [place] [id number] [place] [address] 25842- 6369 March, [facility] [place] [id number] [place] [address] 68481- 7923 March, [facility] [place] [id number] [place] [address] 815954- 8393 March, [facility] [place] [id number] [place] [address] 66257- 0967 Feb, [facility] [place] [id number] [place] [address] 12153- 5147 Feb, [facility] [place] [facility] [address] [id number] [place] [address]- 4572 25 Jan, 2015 [facility] [place] [facility] [address] [id number] [place] [address]- 0336 25 Jan, 2015 [facility] [place] [facility] [address] [id number] [place] [address]- 4143 16 Jan, 2015 [facility] [place] [facility] [address] [id number] [place] [address]- 5501 16 Jan, 2015 [facility] [place] [facility] [address] [id number] [place] [address]- 7618 16 Jan, 2015 [facility] [place] [facility] [address] [id number] [place] [address]- 4486 16 Jan, 2015 [facility] [place] [facility] [address] [id number] [place] [address]- 3696 Jan, [facility] [place] [facility] [address] [id number] [place] [address]- 6339 13 Jan, 2015 [facility] [place] [facility] [address] [id number] [place] [address]- 0577 Jan, [facility] [place] [facility] [address] [id number] [place] [address]- 7158 Jan, [facility] [place] [facility] [address] [id number] [place] [address]- 2417 Jan, [facility] [place] [facility] [address] [id number] [address]- 1358 Dec, [facility] [place] [facility] [address] [id number] [place] [address]- 0129 Dec, [facility] [place] [facility] [address] [id number] [place] [address]- 6660 Dec, [facility] [place] [facility] [address] [id number] [place] [address]- 2170 Dec, [facility] [place] [facility] [address] [id number] [place] [address]- 3628 12 Dec, 2014 [facility] [address] [id number] [place] [address]- 0286 Dec, [facility] [address] [id number] [place] [address]- 3530 15 Nov, 2014 [facility] [address] [id number] [place] [address]- 3479 15 Nov, 2014 [facility] [address] [id number] [place] [address]- 8646 Nov, [facility] [address] [id number] [place] [address] Nov, [facility] [address] [id number] [place] [address] Nov, [facility] [address] [id number] [place] [address] Nov, [facility] [address] [id number] [place] [address] Nov, [facility] [address] [id number] [place] [address] Nov, [facility] [address] [id number] [place] [address] Nov, [facility] [address] [id number] [place] [address] Nov, [facility] [address] [id number] [place] [address] Nov, [facility] [place] [facility] [address] [id number] [place] [address] Oct, [facility] [place] [facility] [address] [id number] [place] [address] Oct, [facility] [address] [id number] [id number] [address] Oct, [facility] [place] [facility] [address] [id number] [place] [address] Oct, [facility] [place] [facility] [address] [id number] [place] [address] Oct, [facility] [place] [facility] [address] [id number] [place] [address] Oct, [facility] [place] [facility] [address] [id number] [place] [address] Oct, [facility] [place] [facility] [address] [id number] [place] [address] Oct, [facility] [place] [facility] [address] [id number] [place] [address] Oct, [facility] [place] [facility] [address] [id number] [place] [address] Oct, [facility] [place] [facility] [address] [id number] [place] [address] Sep, [facility] [place] [facility] [address] [id number] [place] [address] Sep, [facility] [place] [facility] [address] [id number], [place] [address] Sep, [facility] [place] [facility] [address] [id number], [place] [address] Sep, [facility] [place] [facility] [address] [id number], [place] [address] Sep, [facility] [place] [facility] [address] [id number], [place] [address] Sep, [facility] [place] [facility] [address] [id number], [place] [address] Sep, [facility] [place] [facility] [address] [id number], [place] [address] Sep, [facility] [place] [facility] [address] [id number], [place] [address] Sep, [facility] [place] [facility] [address] [id number] [place] [address] 17 Sep, 2014 [facility] [place] [facility] [address] [id number] [place] [address] Sep, [facility] [place] [facility] [address] [id number] [place] [address] Sep, [facility] [place] [facility] [address] [id number] [place] [address] Sep, [facility] [place] [facility] [address] [id number] [place] [address] Aug, [facility] [place] [facility] [address] [id number] [place] [address] Aug, [facility] [place] [facility] [address] [id number] [place] [address] Aug, [facility] [place] [facility] [address] [id number] [place] [address] 30 Aug, 2014 [facility] [place] [facility] [address] [id number] [place] [address] 30 Aug, 2014 [facility] [place] [facility] [address] [facility] [id number] [place] [address] 30 Aug, 2014 [facility] [place] [facility] [address] [id number] [place] [address] Aug, [facility] [place] [facility] [address] [id number], [place] [address] Aug, [facility] [place] [facility] [address] [id number] [place] [address] Aug, [facility] [place] [facility] [address] [facility] [id number], [place] [address] Aug, [facility] [place] [facility] [address] [facility] [id number], [place] [address] Aug, [facility] [place] [facility] [address] [id number] [place] [address] Aug, 2013 [facility] [place] [facility] [address] [id number] [place] [address] Aug, [facility] [place] [facility] [address] [id number] [place] [address] Aug, 2013 [facility] [place] [facility] [address] [id number] [place] [address] Aug, 2013 [facility] [place] [facility] [address] [id number] [place] [address] Aug, [facility] [place] [facility] [address] [id number] [place] [address] Aug, [facility] [place] [facility] [address] [id number] [place] [address] Aug, [facility] [place] [facility] [address] [id number] [place] [address]- [address] 30 Sep, 2013 [facility] [place] [facility] [address] [id number] [place] [address] 30 Sep, 2013 [facility] [place] [facility] [address] [id number] [place] [address]- [address] 24 Sep, 2013 [facility] [place] [facility] [address] [id number] [place] [address]- [address] 24 Sep, 2013 [facility] [place] [facility] [address] [id number] [place] [address] 23 Sep, 2013 [facility] [place] [facility] [address] [id number] [place] [address] 23 Sep, 2013 [facility] [place] [facility] [address] [id number] [place] [address] 15 Sep, 2013 [facility] [place] [facility] [address] [id number] [place] [address] 15 Sep, 2013 [facility] [place] [facility] [address] [id number] [place] [address] Jul, [facility] [place] [address] [facility] [id number], [place] [address] 15 Jul, 2014 [facility] [place] [address] [facility] [id number], [place] [address] Jul, [facility] [place] [address] [facility] [id number], [place] [address] Jul, [facility] [place] [address] [facility] [id number], [place] [address] Jul, [facility] [place] [address] [facility] [id number], [place] [address] Jul, IMMUNIZATIONS No Known Immunizations SOCIAL HISTORY Never Assessed REASON FOR VISIT Lab results PLAN OF CARE VITAL SIGNS MEDICATIONS Unknown [...] r/t DDD Medical History fibromyalgia Medical History AL-stent to LAD Surgical History cholecystectomy 1983 Surgical [...] Influenza illness, hyperglycemia 2017 Hospitalization History ED [facility]- High BS (Pt left AMA) 01/05/2018 Hospitalization History [facility]- DKA and UTI. Discharged 01/14/2018 Hospitalization History ED [facility]- Nausea and Vomiting, cannot urinate 01/18/2018
--- OUTSIDE RECORDS SUMMARY | 2018-06-11 18:52 | XMS REPORT ---
Author Author BURKSMARCELINO Rene [facility] Address [address] [place] [address] Care Team Providers Care Contracts Analyst Name Role Phone MARCELINO BURKS Unavailable PROBLEMS Type Condition ICD9-CM Code RQA07-GI Code Onset Dates Condition Status SNOMED Code Problem Dental caries K02.9 Active 65500335 Problem Primary insomnia F51.01 Active 9426522 Problem Seasonal allergic rhinitis due to pollen J30.1 Active 78422657 Problem Type 2 diabetes mellitus with hyperglycemia E11.65 Active 882618492214699 Problem Hyperlipidemia E78.5 Active 35671367 Problem Cervicalgia M54.2 Active 08033973 Problem Alterations of sensations R20.9 Active 229000870 Problem Other obesity due to excess calories E66.09 Active 293752476 Problem Arthritis M19.90 Active 1437686 Problem Diabetic mononeuropathy associated with type 2 diabetes mellitus E11.41 Active 432189982 Problem Body mass index (BMI) of 33.0-33.9 in adult Z68.33 Active 082677624 Problem GERD (gastroesophageal reflux disease) K21.9 Active 130249082 Problem assisted 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 Active 317964214 Problem Degenerative disc disease, lumbar M51.36 Active 50265951 Problem Fibromyalgia M79.7 Active 45485013 Problem Tobacco abuse Z72.0 Active 46145289 Problem Tobacco abuse counseling Z71.6 Active 086276754 Problem Essential hypertension I10 Active 16122366 Problem Chronic pain syndrome G89.4 Active 117029468 Problem CAD (coronary artery disease) I25.10 Active 66322064 Problem DM neuro manif type II E11.49 Active 30249274 ALLERGIES No Information ENCOUNTERS Encounter Location Date Diagnosis [facility] [address] [facility] [id number] [address] Jul, [facility] [address] [id number] [address] Apr, Type 2 diabetes mellitus with hyperglycemia E11.65 [place] [address] [address]- 1000 Apr, Hyperlipidemia E78.5 ; Chronic pain syndrome G89.4 ; Cervicalgia M54.2 ; DM neuro manif type II E11.49 ; long term care pharmacist 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 ; Nausea alone R11.0 ; Essential hypertension I10 ; GERD ( gastroesophageal reflux disease) K21.9 ; CAD (coronary artery disease) I25.10 and Diabetic mononeuropathy associated with type 2 diabetes mellitus E11.41 [place] [address] 8[address]28- 4697 Apr, [place] [address] 87371- 2256 March, Essential hypertension I10 ; DM neuro manif type II E11.49 and GERD (gastroesophageal reflux disease) K21.9 [place] [address] 77928- 2121 March, DM neuro manif type II E11.49 and GERD (gastroesophageal reflux disease) K21.9 [place] [address] 47836- 7201 March, [place] [address] 80068- 8648 Feb, Tobacco abuse Z72.0 [place] [address] 68293- 3283 Feb, Tobacco abuse Z72.0 [place] [address] 14729- 3842 Feb, Hypokalemia E87.6 [place] [address] 36365- 2987 Feb, Hyperlipidemia E78.5 ; Essential hypertension I10 ; DM neuro manif type II E11.49 ; Fibromyalgia M79.7 ; Acute non-recurrent frontal sinusitis J01.10 ; Other obesity due to excess calories E66.09 and Body mass index (BMI) of 33.0-33.9 in adult Z68.33 [place] [address] 41212- 1076 05 Jan, 2018 Dysuria R30.0 [place] [address] 11764- 2046 05 Jan, 2018 Dysuria R30.0 [place] [address] 38184- 8263 02 Jan, 2018 Acute cystitis with hematuria N30.01 ; DM neuro manif type II E11.49 ; long term care pharmacist 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 ; Essential hypertension I10 and Hospital discharge follow-up Z09 [place] [address] 42733- 3409 27 Dec, 2017 Chest pain, unspecified type R07.9 ; Dehydration E86.0 and Anuria R34 [place] [address] 69651- 0414 Dec, [place] [address] 96094- 2245 Dec, Hyperglycemia R73.9 ; Dehydration E86.0 and Acute cystitis with hematuria N30.01 [facility] [address] [place] [address]315 -1608 Dec, [facility] [address] [place] [address] 23465 -4746 Dec, [facility] [address] [place] [address] 10242 -1837 Dec, [facility] [address] [place] [address] 82886 -0426 16 Dec, 2017 Dysuria R30.0 ; Acute cystitis with hematuria N30.01 and Weakness R53.[address] 33525- 6873 Dec, [place] [address] [place] [id number] [place] [address] 10540- 2790 Nov, [place] [address] 51537- 9828 Nov, [place] [address] 35811- 6619 Nov, Essential hypertension I10 ; DM neuro manif type II E11.49 ; long term care pharmacist 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 ; Tobacco abuse Z72.0 ; Hyperlipidemia E78.5 ; Non-adherence to medical treatment Z91.19 ; GERD (gastroesophageal reflux disease) K21.9 ; Degenerative disc disease, lumbar M51.36 ; Fibromyalgia M79.7 ; Chronic pain syndrome G89.4 ; Dental caries K02.9 and Seasonal allergic rhinitis due to pollen J30.[address] 12279- 2890 Nov, Alterations of sensations R20.9 [place] [address] 60615- 7024 Sep, DM neuro manif type II E11.49 ; Hyperlipidemia E78.5 ; Degenerative disc disease, lumbar M51.36 and Chronic pain syndrome G89.4 [place] [address] [id number] [place] [address] 80263- 0560 Sep, Arthritis M19.90 [place] [address] 40592- 1189 Sep, Type 2 diabetes mellitus without complication E11.9 ; GERD ( gastroesophageal reflux disease) K21.9 ; Arthritis M19.90 and Chronic pain syndrome G89.4 [place] [address] 47209- 3652 Sep, [place] [address] [address] [id number] [place] [address] 25235- 1425 Aug, [place] [address] 23631- 7089 18 Aug, 2017 Type 2 diabetes mellitus without complication E11.9 [facility] [address], [place] [address] 8[address] 17 Aug, 2017 [facility] [address] [place] [id number] [place] [address] 30966- 2407 16 Aug, 2017 [facility] [id number] [place] [address] 51068- 0803 Aug, [facility] [id number] [place] [address] 05237- 1824 26 Jul, 2017 [facility] [id number] [place] [address] 60333 -1511 22 Jul, 2017 Acute non-recurrent frontal sinusitis J01.10 [place] [address] [address] [id number] [place] [address] 92471- 2612 20 Jul, 2017 CAD (coronary artery disease) I25.10 and GERD ( gastroesophageal reflux disease) K21.9 [place] [address] [address] [id number] [place] [address] 14134- 1605 14 Jul, 2017 Localized swelling, mass and lump, neck R22.1 [place] [address] [address] [id number] [place] [address] 60188- 1564 06 Jul, 2017 [place] [address] [address] [id number] [place] [address] 19852- 6464 Jun, Type 2 diabetes mellitus without complication E11.9 ; Primary insomnia F51.01 ; Alterations of sensations R20.9 ; Hyperlipidemia E78.5 ; GERD (gastroesophageal reflux disease) K21.9 ; Essential hypertension I10 ; long term care pharmacist 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 ; Tobacco abuse Z72.0 ; Tobacco abuse counseling Z71.6 and CAD (coronary artery disease) I25.10 [facility] [address] [place] [address] 61464- 6324 May, [place] [address] [place] [id number] [place] [address] 16799- 2077 May, Type 2 diabetes mellitus without complication E11.9 [facility] [address] [place] [address] 64085- 7402 May, [facility] [address] [id number] [place] [address] 97124- 5859 March, [facility] [id number] [place] [address] 66247- 8071 Feb, [facility] [id number] [place] [address] 70961 -7080 Jan, Acute suppurative otitis media of left ear with spontaneous rupture of tympanic membrane, recurrence not specified H66.012 [place] [address] [address] [id number] [place] [address] 65216- 3690 Dec, Type 2 diabetes mellitus without complication E11.9 ; Lumbago M54.5 ; Cervicalgia M54.2 ; Hyperlipidemia E78.5 ; GERD ( gastroesophageal reflux disease) K21.9 ; Chronic pain syndrome G89.4 ; Dysuria R30.0 and Essential hypertension I10 [place] [address] [address] [id number] [place] [address] 04422- 9251 Oct, [place] [id number] [place] [address] 59053- 7597 30 Sep, 2016 Diabetic mononeuropathy associated with type 2 diabetes mellitus E11.41 and Coughing R05 [place] [address] [address] [id number] [place] [address] 88778- 9060 Sep, Diabetic mononeuropathy associated with type 2 diabetes mellitus E11.41 and Coughing R05 [facility] [id number] [place] [address] 64675- 9092 Sep, Onychomycosis B35.1 ; Neuritis M79.2 and Type 2 diabetes mellitus without complication E11.9 [facility] [address] [id number] [place] [address] 96396- 2914 Sep, [facility] [id number] [place] [address] 07930- 2319 Sep, Cough R05 ; Seasonal allergic rhinitis due to pollen J30.1 and Acute upper respiratory infection, unspecified J06.9 [place] [address] [address] [id number] [place] [address] 12325- 6008 Sep, [place] [address] 29857- 1157 Aug, [place] [address] 56057- 4253 Jul, Type 2 diabetes mellitus without complication E11.9 ; Chronic pain G89.29 ; Essential hypertension I10 and Acute non-recurrent maxillary sinusitis J01.00 [place] [address] 81339- 0874 Jul, Chronic pain syndrome G89.4 ; Lumbago M54.5 and Cervicalgia M54.2 [place] [address] 48600- 6509 Jul, [place] [address] 17156- 1219 Jul, [place] [address] 00724- 2852 Jun, Onychomycosis B35.1 ; Onychocryptosis L60.0 and DM neuro manif type II E11.49 [place] [id number] [place] [address] 98796- 6157 Jun, Type 2 diabetes mellitus without complication E11.9 ; Pain in unspecified hip M25.559 ; Other chronic pain G89.29 ; Lumbago M54.5 ; Chronic pain G89.29 ; Insomnia, unspecified G47.00 ; GERD (gastroesophageal reflux disease) K21.9 and Dental caries K02.9 [place] [id number] [place] [address] 07091- 1474 Jun, Type 2 diabetes mellitus without complication E11.9 ; Lumbago M54.5 ; Chronic pain G89.29 ; Insomnia, unspecified G47.00 ; GERD ( gastroesophageal reflux disease) K21.9 ; Dental caries K02.9 ; Pain in unspecified hip M25.559 and Other chronic pain G89.29 [place] [address] 03292- 8709 May, [place] [address] 21106- 6194 May, Type 2 diabetes mellitus without complication E11.9 ; Essential hypertension I10 ; Chronic pain syndrome G89.4 ; Other seasonal allergic rhinitis J30.2 and Insomnia, unspecified G47.00 [place] [address] 33133- 4787 Apr, [address] 26126- 3769 Apr, Hypertension I10 and Chronic pain G89.29 [place] [address] 67141- 2465 March, Onychomycosis B35.1 ; Onychocryptosis L60.0 and Type 2 diabetes mellitus without complication E11.9 [place] [address] 43955- 4328 March, Type 2 diabetes mellitus without complication E11.9 ; Essential hypertension I10 ; Alterations of sensations R20.9 ; Chronic pain syndrome G89.4 ; Tobacco abuse Z72.0 and Tobacco abuse counseling Z71.6 [place] [address] 30401- 6136 Feb, Cough R05 ; Type 2 diabetes mellitus without complication E11.9 ; Tobacco abuse counseling Z71.6 and Chronic pain G89.29 [place] [address] 21604- 9781 Feb, [place] [address] 62193- 5202 Feb, Type 2 diabetes mellitus without complication E11.9 ; Lumbago M54.5 ; Cervicalgia M54.2 ; Degenerative disc disease, lumbar M51.36 and Numbness and tingling of both legs 782.0 [facility] [id number] [place] [address] [id number] Jan, Dental caries K02.9 and Encounter for dental examination Z01.[address] 79758- 3605 Jan, Type 2 diabetes mellitus without complication E11.9 [place] [address] 99847- 1319 Jan, Type 2 diabetes mellitus without complication E11.9 ; Numbness and tingling of both legs 782.0 ; Fibromyalgia M79.7 ; Hyperlipidemia E78.5 ; Lumbago M54.5 ; Cervicalgia M54.2 ; Hypertension I10 ; CAD (coronary artery disease) I25.10 ; Tobacco abuse Z72.0 ; Tobacco abuse counseling Z71.6 and GERD (gastroesophageal reflux disease) K21.[address] 80884- 3829 Jan, [address] 34444- 2008 Dec, [facility] [id number] [place] [address] [id number] Dec, Dental examination Z01.20 and Dental caries K02.[address] 16993- 6349 Dec, Edema R60.9 ; Type 2 diabetes mellitus without complication E11.9 ; Hypertension I10 and Mouth pain K13.[address] 23113- 3398 Dec, Degenerative disc disease, lumbar M51.[address] 65152- 9076 Dec, [address] [place] [address]- 5863 Nov, Insomnia, unspecified G47.00 [place] [address] 16325- 9017 Nov, Type 2 diabetes mellitus without complication E11.9 ; Lumbago M54.5 ; Degenerative disc disease, lumbar M51.36 ; Fibromyalgia M79.7 ; Coronary artery disease I25.10 ; Hyperlipidemia E78.5 ; Controlled substance agreement signed Z79.899 ; Dysuria R30.0 ; Insomnia, unspecified G47.00 ; GERD ( gastroesophageal reflux disease) K21.9 ; Hypertension 401.9 and long term care pharmacist 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 [place] [address] 22485- 7450 Nov, [place] [address] 56730- 9181 Oct, Degenerative disc disease, lumbar M51.36 ; Cervicalgia M54.2 ; Insomnia, unspecified G47.00 ; Decreased GFR R94.4 and GERD ( gastroesophageal reflux disease) K21.9 [place] [address] 65801- 5440 Oct, Lumbago M54.5 [place] [address] 63450- 6619 Oct, Low back pain M54.5 [place] [address] 50728- 5400 Oct, [place] [address] 46218- 5319 Oct, Disorientation R41.0 [place] [address] 34363- 5157 Oct, Type 2 diabetes mellitus without complication E11.9 ; Disorientation R41.0 and Chest pain R07.9 [place] [address] 99778- 9178 Oct, [facility] [id number] [place] [address] 55415- 7068 Sep, Low back pain M54.5 [facility] [id number] [place] [address] 41481- 9914 Sep, Insomnia, unspecified G47.00 [facility] [id number] [place] [address] 55864- 4071 Aug, Degenerative disc disease, lumbar M51.36 ; Type 2 diabetes mellitus without complication E11.9 and Encounter for immunization Z23 [facility] [id number] [place] [address] 40335- 7216 Aug, [facility] [id number] [place] [address] 74951- 1500 Aug, [facility] [id number] [place] [address] 08788- 6471 Aug, [facility] [id number] [place] [address] 71606- 7994 Jul, [facility] [id number] [place] [address] 81690- 2605 Jun, [facility] [id number] [place] [address] 16500- 3331 Jun, Chest pain 786.50 and Lumbago 724.2 [facility] [id number] [place] [address] 86374- 7002 Jun, [facility] [id number] [place] [address] 67218- 6493 Jun, [facility] [id number] [place] [address] [phone] Jun, Dental examination V72.2 [facility] [id number] [place] [address] 59317- 7694 Jun, [facility] [id number] [place] [address] 39822- 2221 May, Left shoulder pain 719.41 and Numbness and tingling of both legs 782.0 [facility] [id number] [place] [address] 42865- 8362 May, Cough 786.2 ; Numbness and tingling of both legs 782.0 and Acute rhinitis 460 [facility] [id number] [place] [address] 34302- 8833 May, [facility] [id number] [place] [address] 74848- 8620 Apr, [facility] [id number] [place] [address] 16309- 2232 Apr, Bilateral lower extremity edema 782.3 ; Lumbago 724.2 and Insomnia 780.52 [facility] [id number] [place] [address] 23035- 9872 Apr, [facility] [id number] [place] [address] 65953- 2331 Apr, [facility] [id number] [place] [address] 19726- 5260 March, Seborrheic keratosis 702.19 and Skin lesion of face 709.9 [facility] [id number] [place] [address] 24026- 9659 March, [facility] [id number] [place] [address] 81597- 3971 March, [facility] [id number] [place] [address] 07507- 5816 March, [facility] [id number] [place] [address] 909498- 6350 March, [facility] [id number] [place] [address] 19415- 3460 Feb, [facility] [id number] [place] [address] 85463- 0815 Feb, [facility] [place] [facility] [address] [id number] [place] [address]- 9827 25 Jan, 2015 [facility] [place] [facility] [address] [id number] [place] [address]- 2749 25 Jan, 2015 [facility] [place] [facility] [address] [id number] [place] [address]- 8421 16 Jan, 2015 [facility] [place] [facility] [address] [id number] [place] [address]- 9269 16 Jan, 2015 [facility] [place] [facility] [address] [id number] [place] [address]- 6043 16 Jan, 2015 [facility] [place] [facility] [address] [id number] [place] [address]- 4409 16 Jan, 2015 [facility] [place] [facility] [address] [id number] [place] [address]- 4263 Jan, [facility] [place] [facility] [address] [id number] [place] [address]- 9962 13 Jan, 2015 [facility] [place] [facility] [address] [id number] [place] [address]- 8660 Jan, [facility] [place] [facility] [address] [id number] [place] [address]- 0703 Jan, [facility] [place] [facility] [address] [id number] [place] [address]- 7902 Jan, [facility] [place] [facility] [address] [id number], [place] [address]- 7189 Dec, [facility] [place] [facility] [address] [id number] [place] [address]- 2561 Dec, [facility] [place] [facility] [address] [id number] [place] [address]- 4013 Dec, [facility] [place] [facility] [address] [id number] [place] [address]- 5142 Dec, [facility] [place] [facility] [address] [id number] [place] [address]- 6736 12 Dec, 2014 [facility] [address] [id number] [place] [address]- 3232 Dec, [facility] [address] [id number] [place] [address]- 7538 15 Nov, 2014 [facility] [address] [id number] [place] [address]- 9029 15 Nov, 2014 [facility] [address] [id number] [place] [address]- 1564 Nov, [facility] [address] [id number] [place] [address]- 4239 Nov, [facility] [address] [id number] [place] [address]- 3320 Nov, [facility] [address] [id number] [place] [address]- 0829 Nov, [facility] [address] [id number] [place] [address]- 1344 Nov, [facility] [address] [id number] [place] [address]- 3282 Nov, [facility] [address] [id number] [place] [address]- 6383 Nov, [facility] [address] [id number] [place] [address]- 3373 Nov, [facility] [address] [id number] [place] [address]- 6518 Nov, [facility] [place] [facility] [address] [id number] [place] [address]- 0319 Oct, [facility] [place] [facility] [address] [id number] [place] [address]- 7486 Oct, [facility] [address] [id number] [place] 1619 Oct, [facility] [place] [facility] [address] [id number] [place] [address]- 9655 Oct, [facility] [place] [facility] [address] [id number] [place] [address]- 7318 Oct, [facility] [place] [facility] [address] [id number] [place] [address]- 5489 Oct, [facility] [place] [facility] [address] [id number] [place] [address]- 5036 Oct, [facility] [place] [facility] [address] [id number] [place] [address]- 7473 Oct, [facility] [place] [facility] [address] [id number] [place] [address]- 3343 Oct, [facility] [place] [facility] [address] [id number] [place] [address]- 4147 Oct, [facility] [place] [facility] [address] [id number] [place] [address]- 7882 Sep, [facility] [place] [facility] [address] [id number] [place] [address]- 3577 Sep, [facility] [place] [facility] [address] [id number], [place] [address]- 0854 Sep, [facility] [place] [facility] [address] [id number], [place] [address]- 8896 Sep, [facility] [place] [facility] [address] [id number], [place] [address]- 7736 Sep, [facility] [place] [facility] [address] [id number], [place] [address] Sep, [facility] [place] [facility] [address] [id number], [place] [address] Sep, [facility] [place] [facility] [address] [id number], [place] [address] Sep, [facility] [place] [facility] [address] [id number], [place] [address] Sep, [facility] [place] [facility] [address] [id number] [place] [address] 17 Sep, 2014 [facility] [place] [facility] [address] [id number] [place] [address] Sep, [facility] [place] [facility] [address] [id number] [place] [address] Sep, [facility] [place] [facility] [address] [id number] [place] [address] Sep, [facility] [place] [facility] [address] [id number] [place] [address] Aug, [facility] [place] [facility] [address] [id number] [place] [address] Aug, [facility] [place] [facility] [address] [id number] [place] [address] Aug, [facility] [place] [facility] [address] [id number] [place] [address] 30 Aug, 2014 [facility] [place] [facility] [address] [id number] [place] [address] 30 Aug, 2014 [facility] [place] [facility] [address] [facility] [id number] [place] [address] 30 Aug, 2014 [facility] [place] [facility] [address] [id number] [place] [address] Aug, [facility] [place] [facility] [address] [id number], [place] [address] Aug, [facility] [place] [facility] [address] [id number] [place] [address] Aug, [facility] [place] [facility] [address] [facility] [id number], [place] [address] Aug, [facility] [place] [facility] [address] [facility] [id number], [place] [address] Aug, [facility] [place] [facility] [address] [id number] [place] [address] Aug, 2013 [facility] [place] [facility] [address] [id number] [place] [address] Aug, [facility] [place] [facility] [address] [id number] [place] [address] Aug, 2013 [facility] [place] [facility] [address] [id number] [place] [address] Aug, 2013 [facility] [place] [facility] [address] [id number] [place] [address] Aug, [facility] [place] [facility] [address] [id number] [place] [address] Aug, [facility] [place] [facility] [address] [id number] [place] [address] Aug, [facility] [place] [facility] [address] [id number] [place] [address] 30 Sep, 2013 [facility] [place] [facility] [address] [id number] [place] [address] 30 Sep, 2013 [facility] [place] [facility] [address] [id number] [place] [address] 24 Sep, 2013 [facility] [place] [facility] [address] [id number] [place] [address] 24 Sep, 2013 [facility] [place] [facility] [address] [id number] [place] [address] 23 Sep, 2013 [facility] [place] [facility] [address] [id number] [place] [address] 23 Sep, 2013 [facility] [place] [facility] [address] [id number] [place] [address] 15 Sep, 2013 [facility] [place] [facility] [address] [id number] [place] [address] 15 Sep, 2013 [facility] [place] [facility] [address] [id number] [place] [address] Jul, [facility] [address] [facility] [id number], [place] [address] 15 Jul, 2014 [facility] [address] [id number], [place] [address] Jul, [facility] [address] [id number], [place] [address] Jul, [facility] [address] [id number], [place] [address] Jul, [facility] [address] [facility] [id number], [place] [address] Jul, IMMUNIZATIONS No Known Immunizations SOCIAL HISTORY Never Assessed REASON FOR VISIT Lab (walk-in) PLAN OF CARE VITAL SIGNS MEDICATIONS Unknown Medications RESULTS Name Result Date Reference Range UA LONG DIP (IN HOUSE) 2018-01-24 Lot # [id number] Exp date 08/2018 Clarity Clear Color Yellow Odor None GLU 1+ CLEO Negative KET Negative SG 1.025 BLO Trace-Intact pH 6.0 Protein 1+ URO 0.2 NIT Negative JAZIEL Negative Lot # [id number] Exp date 02/2018 PROCEDURES Procedure Date Ordered Result Body Site URINALYSIS, AUTO, W/O SCOPE January 24, 2018 INSTRUCTIONS MEDICATIONS ADMINISTERED No Known Medications MEDICAL [...] Influenza illness, hyperglycemia 2017 Hospitalization History [facility]- High BS (Pt left AMA) 01/05/2018 Hospitalization History [facility]- DKA and UTI. Discharged 01/14/2018 Hospitalization History [facility]- Nausea and Vomiting, cannot urinate 01/18/2018
--- OUTSIDE RECORDS SUMMARY | 2018-06-11 18:53 | XMS REPORT ---
Author Author JOSSY BARRETT Organization [facility] Address [address] [place] [address] Care Team Providers Care Php Web Developer Name Role Phone JOSSY BARRETT Unavailable PROBLEMS Type Condition ICD9-CM Code ACW51-XV Code Onset Dates Condition Status SNOMED Code Problem Tobacco abuse counseling Z71.6 Active 728967713 Problem DM neuro manif type II E11.49 Active 22031997 Problem Chronic pain syndrome G89.4 Active 177550506 Problem Other obesity due to excess calories E66.09 Active 012951560 Problem Body mass index (BMI) of 33.0-33.9 in adult Z68.33 Active 947668493 Problem Seasonal allergic rhinitis due to pollen J30.1 Active 27040789 Problem Dental caries K02.9 Active 83734331 Problem Arthritis M19.90 Active 3783363 Problem Primary insomnia F51.01 Active 7703206 Problem Hyperlipidemia E78.5 Active 75534186 Problem Degenerative disc disease, lumbar M51.36 Active 39859448 Problem Alterations of sensations R20.9 Active 334738042 Problem halfway 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 Active 685596758 Problem Essential hypertension I10 Active 89534109 Problem Fibromyalgia M79.7 Active 68486292 Problem CAD (coronary artery disease) I25.10 Active 33376194 Problem GERD (gastroesophageal reflux disease) K21.9 Active 736316672 Problem Tobacco abuse Z72.0 Active 98202344 ALLERGIES No Information ENCOUNTERS Encounter Location Date Diagnosis [facility] [address] [facility] [id number] [address] Apr, [facility] [address] [place] [address]5069- 2597 March, Essential hypertension I10 ; DM neuro manif type II E11.49 and GERD (gastroesophageal reflux disease) K21.9 [facility] [address] [place] [address] 87823- 5079 March, DM neuro manif type II E11.49 and GERD (gastroesophageal reflux disease) K21.9 [place] [address] 04387- 1093 March, [place] [address] 40840- 5600 Feb, Tobacco abuse Z72.0 [place] [address] 69966- 1002 Feb, Tobacco abuse Z72.0 [place] [address] 71443- 3767 Feb, Hypokalemia E87.6 [place] [address] 35707- 7438 Feb, Hyperlipidemia E78.5 ; Essential hypertension I10 ; DM neuro manif type II E11.49 ; Fibromyalgia M79.7 ; Acute non-recurrent frontal sinusitis J01.10 ; Other obesity due to excess calories E66.09 and Body mass index (BMI) of 33.0-33.9 in adult Z68.33 [place] [address] 16453- 1419 05 Jan, 2018 Dysuria R30.0 [place] [address] 84866- 2586 Jan, Dysuria R30.0 [place] [address] 11688- 0893 Jan, Acute cystitis with hematuria N30.01 ; DM neuro manif type II E11.49 ; halfway 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 ; Essential hypertension I10 and Hospital discharge follow-up Z09 [place] [address] 38775- 4019 27 Dec, 2017 Chest pain, unspecified type R07.9 ; Dehydration E86.0 and Anuria R34 [place] [address] [place] [address] 95[address] Dec, [place] [address] 07830- 8073 Dec, Hyperglycemia R73.9 ; Dehydration E86.0 and Acute cystitis with hematuria N30.01 [facility] [address] [address] -[address] Dec, [facility] [address] 58685 -[address] Dec, [facility] [place] [address] 8[address]25 -0941 Dec, [facility] IN [place] [address] 21956 -5421 16 Dec, 2017 Dysuria R30.0 ; Acute cystitis with hematuria N30.01 and Weakness R53.1 [place] [address] 13008- 1618 Dec, [place] [address] 59562- 5799 Nov, [place] [address] 33058- 2335 Nov, [place] [address] [place] [id number] [place] [address] 35727- 9517 Nov, Essential hypertension I10 ; DM neuro manif type II E11.49 ; halfway 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 ; Tobacco abuse Z72.0 ; Hyperlipidemia E78.5 ; Non-adherence to medical treatment Z91.19 ; GERD (gastroesophageal reflux disease) K21.9 ; Degenerative disc disease, lumbar M51.36 ; Fibromyalgia M79.7 ; Chronic pain syndrome G89.4 ; Dental caries K02.9 and Seasonal allergic rhinitis due to pollen J30.1 [place] [id number] [place] [address] 64157- 8415 Nov, Alterations of sensations R20.9 [facility] [address] [place] [id number] [place] [address] 15537- 7561 30 Sep, 2017 DM neuro manif type II E11.49 ; Hyperlipidemia E78.5 ; Degenerative disc disease, lumbar M51.36 and Chronic pain syndrome G89.4 [facility] [address] [place] [id number] [place] [address] 21062- 7772 Sep, Arthritis M19.90 [facility] [address] 44784- 6080 Sep, Type 2 diabetes mellitus without complication E11.9 ; GERD ( gastroesophageal reflux disease) K21.9 ; Arthritis M19.90 and Chronic pain syndrome G89.4 [place] [address] 28922- 6090 Sep, [facility] [address] 06782- 1700 Aug, [facility] [address] 37276- 9192 Aug, Type 2 diabetes mellitus without complication E11.9 [facility] [address] 77894- 5508 Aug, [facility] [address] [place] [id number] [place] [address] 46747- 0609 Aug, [place] [address] 83332- 0526 Aug, [facility] [address] [place] [id number] [place] [address] 04949- 0950 Jul, [facility] [address] [place] [id number] [place] [address] 11013 -2355 22 Jul, 2017 Acute non-recurrent frontal sinusitis J01.10 [facility] [address] [place] [id number] [place] [address] 05054- 2114 20 Jul, 2017 CAD (coronary artery disease) I25.10 and GERD ( gastroesophageal reflux disease) K21.9 [place] [address] [place] [id number] [place] [address] 23645- 3424 14 Jul, 2017 Localized swelling, mass and lump, neck R22.1 [place] [address] [place] [id number] [place] [address] 04355- 3317 06 Jul, 2017 [place] [address] 29630- 6444 15 Jun, 2017 Type 2 diabetes mellitus without complication E11.9 ; Primary insomnia F51.01 ; Alterations of sensations R20.9 ; Hyperlipidemia E78.5 ; GERD (gastroesophageal reflux disease) K21.9 ; Essential hypertension I10 ; 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 ; Tobacco abuse Z72.0 ; Tobacco abuse counseling Z71.6 and CAD (coronary artery disease) I25.10 [place] [address] 69321- 8077 May, [place] [address] 04658- 5829 May, Type 2 diabetes mellitus without complication E11.9 [place] [address] 67114- 3613 May, [place] [address] [place] [id number] [place] [address] 48866- 9483 March, [place] [address] [place] [id number] [place] [address] 88106- 5023 Feb, [facility] [address] [place] [id number] [place] [address] 97134 -9077 Jan, Acute suppurative otitis media of left ear with spontaneous rupture of tympanic membrane, recurrence not specified H66.012 [place] [address] [place] [id number] [place] [address] 19812- 2921 17 Dec, 2016 Type 2 diabetes mellitus without complication E11.9 ; Lumbago M54.5 ; Cervicalgia M54.2 ; Hyperlipidemia E78.5 ; GERD ( gastroesophageal reflux disease) K21.9 ; Chronic pain syndrome G89.4 ; Dysuria R30.0 and Essential hypertension I10 [place] [address] 15045- 0172 Oct, [place] [address] 69654- 4590 30 Sep, 2016 Diabetic mononeuropathy associated with type 2 diabetes mellitus E11.41 and Coughing R05 [place] [address] 78679- 0966 Sep, Diabetic mononeuropathy associated with type 2 diabetes mellitus E11.41 and Coughing R05 [place] [address] 17758- 4370 18 Sep, 2016 Onychomycosis B35.1 ; Neuritis M79.2 and Type 2 diabetes mellitus without complication E11.[address] 57039- 8147 Sep, [place] [address] 03571- 6904 03 Sep, 2016 Cough R05 ; Seasonal allergic rhinitis due to pollen J30.1 and Acute upper respiratory infection, unspecified J06.[address] 01258- 1490 02 Sep, 2016 [place] [address] 10944- 4601 Aug, [place] [address] 07268- 9448 13 Jul, 2016 Type 2 diabetes mellitus without complication E11.9 ; Chronic pain G89.29 ; Essential hypertension I10 and Acute non-recurrent maxillary sinusitis J01.[address] 13411- 1522 02 Jul, 2016 Chronic pain syndrome G89.4 ; Lumbago M54.5 and Cervicalgia M54.[address] 70480- 2320 Jul, [place] [address] [place] [id number] [place] [address] 32219- 0751 Jul, [place] [address] 55096- 9629 Jun, Onychomycosis B35.1 ; Onychocryptosis L60.0 and DM neuro manif type II E11.[address] 13481- 1686 Jun, Type 2 diabetes mellitus without complication E11.9 ; Pain in unspecified hip M25.559 ; Other chronic pain G89.29 ; Lumbago M54.5 ; Chronic pain G89.29 ; Insomnia, unspecified G47.00 ; GERD (gastroesophageal reflux disease) K21.9 and Dental caries K02.9 [place] [id number] [place] [address] 60884- 6079 Jun, Type 2 diabetes mellitus without complication E11.9 ; Lumbago M54.5 ; Chronic pain G89.29 ; Insomnia, unspecified G47.00 ; GERD ( gastroesophageal reflux disease) K21.9 ; Dental caries K02.9 ; Pain in unspecified hip M25.559 and Other chronic pain G89.29 [place] [id number] [place] [address] 27418- 8221 May, [place] [address] [place] [id number] [place] [address] 05792- 6194 May, Type 2 diabetes mellitus without complication E11.9 ; Essential hypertension I10 ; Chronic pain syndrome G89.4 ; Other seasonal allergic rhinitis J30.2 and Insomnia, unspecified G47.[address] 67960- 5315 Apr, [place] [id number] [place] [address] 19709- 4683 Apr, Hypertension I10 and Chronic pain G89.[address] 04134- 6815 March, Onychomycosis B35.1 ; Onychocryptosis L60.0 and Type 2 diabetes mellitus without complication E11.9 [place] [id number] [place] [address] 58522- 7768 March, Type 2 diabetes mellitus without complication E11.9 ; Essential hypertension I10 ; Alterations of sensations R20.9 ; Chronic pain syndrome G89.4 ; Tobacco abuse Z72.0 and Tobacco abuse counseling Z71.6 [place] [id number] [place] [address] 28988- 9449 Feb, Cough R05 ; Type 2 diabetes mellitus without complication E11.9 ; Tobacco abuse counseling Z71.6 and Chronic pain G89.29 [place] [id number] [place] [address] 06956- 3492 Feb, [address] 09617- 7096 Feb, Type 2 diabetes mellitus without complication E11.9 ; Lumbago M54.5 ; Cervicalgia M54.2 ; Degenerative disc disease, lumbar M51.36 and Numbness and tingling of both legs 782.0 [facility] [address] [place] [id number] [place] [address] [id number] 24 Jan, 2016 Dental caries K02.9 and Encounter for dental examination Z01.20 [place] [id number] [place] [address] 62299- 8777 Jan, Type 2 diabetes mellitus without complication E11.9 [place] [id number] [place] [address] 22076- 0251 Jan, Type 2 diabetes mellitus without complication E11.9 ; Numbness and tingling of both legs 782.0 ; Fibromyalgia M79.7 ; Hyperlipidemia E78.5 ; Lumbago M54.5 ; Cervicalgia M54.2 ; Hypertension I10 ; CAD (coronary artery disease) I25.10 ; Tobacco abuse Z72.0 ; Tobacco abuse counseling Z71.6 and GERD (gastroesophageal reflux disease) K21.9 [place] [address] [place] [address] 39473- 5550 Jan, [place] [address] 13671- 2147 Dec, [facility] [address] [place] [id number] [place] [address] [id number] Dec, Dental examination Z01.20 and Dental caries K02.[address] 46237- 1975 Dec, Edema R60.9 ; Type 2 diabetes mellitus without complication E11.9 ; Hypertension I10 and Mouth pain K13.[address] 43306- 6715 Dec, Degenerative disc disease, lumbar M51.[address] 95817- 5625 Dec, [address] 40991- 4438 Nov, Insomnia, unspecified G47.00 [place] [id number] [place] [address] 64977- 8639 Nov, Type 2 diabetes mellitus without complication E11.9 ; Lumbago M54.5 ; Degenerative disc disease, lumbar M51.36 ; Fibromyalgia M79.7 ; Coronary artery disease I25.10 ; Hyperlipidemia E78.5 ; Controlled substance agreement signed Z79.899 ; Dysuria R30.0 ; Insomnia, unspecified G47.00 ; GERD ( gastroesophageal reflux disease) K21.9 ; Hypertension 401.9 and halfway 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 09370- 1913 Nov, [address] 98025- 2882 Oct, Degenerative disc disease, lumbar M51.36 ; Cervicalgia M54.2 ; Insomnia, unspecified G47.00 ; Decreased GFR R94.4 and GERD ( gastroesophageal reflux disease) K21.9 [facility] [address] [place] [id number] [place] [address] 00615- 1102 Oct, Lumbago M54.5 [facility] [address] [place] [id number] [place] [address] 27913- 3059 Oct, Low back pain M54.5 [facility] [address] 38452- 4145 Oct, [facility] [address] 82761- 8062 Oct, Disorientation R41.0 [place] [address] 27553- 5698 Oct, Type 2 diabetes mellitus without complication E11.9 ; Disorientation R41.0 and Chest pain R07.9 [place] [address] 53109- 2910 Oct, [facility] [address] 44773- 4872 Sep, Low back pain M54.5 [facility] [address] 73190- 5226 Sep, Insomnia, unspecified G47.00 [place] [address] 90822- 5141 Aug, Degenerative disc disease, lumbar M51.36 ; Type 2 diabetes mellitus without complication E11.9 and Encounter for immunization Z23 [facility] [address] [place] [id number] [place] [address] 46819- 4630 Aug, [place] [address] 30824- 4355 Aug, [facility] [address] 75467- 9602 Aug, [facility] [address] [place] [address]- 3610 Jul, [facility] [address] [place] [id number] [place] [address] 15620- 2672 Jun, [facility] [address] [place] [id number] [place] [address] 30143- 7531 Jun, Chest pain 786.50 and Lumbago 724.2 [facility] [address] [place] [id number] [place] [address] 77479- 7760 Jun, [facility] [address] [place] [id number] [place] [address] 65520- 4356 Jun, [facility] [address] [place] [id number] [place] [address] [id number] Jun, Dental examination V72.2 [facility] [address] [place] [id number] [place] [address] 26325- 4933 Jun, [facility] [address] [place] [id number] [place] [address] 84553- 2270 May, Left shoulder pain 719.41 and Numbness and tingling of both legs 782.0 [facility] [address] [place] [id number] [place] [address] 06600- 9884 May, Cough 786.2 ; Numbness and tingling of both legs 782.0 and Acute rhinitis 460 [facility] [address] [place] [id number] [place] [address] 01801- 1471 May, [facility] [address] [place] [id number] [place] [address] 84984- 6963 Apr, [facility] [address] [place] [id number] [place] [address] 53530- 3002 Apr, Bilateral lower extremity edema 782.3 ; Lumbago 724.2 and Insomnia 780.52 [facility] [address] [place] [id number] [place] [address] 80125- 6901 Apr, [facility] [address] [place] [address]- 2594 Apr, [facility] [address] [facility] [id number], [place] [address]- 2824 March, Seborrheic keratosis 702.19 and Skin lesion of face 709.9 [facility] [address] [facility] [id number][place] [address]- 2192 March, [facility] [address] [facility] [id number], [place] [address]- 3876 March, [facility] [address] [facility] [id number] [place] [address]- 9257 March, [facility] [address] [facility] [id number][place] [address]- 1616 March, [facility] [address] [place] [id number] [address]- 6888 Feb, [facility] [address] [facility] [id number][place] [address]- 1380 Feb, [facility] [place] [facility] [address] [facility] [id number], [place] [address]- 1341 Jan, [facility] [address] [facility] [id number], [place] [address]- 6980 Jan, [facility] [place] [facility] [address] [facility] [id number], [place] [address]- 6625 16 Jan, 2015 [facility] [place] [facility] [address] [facility] [id number][place] [address]- 7560 16 Jan, 2015 [facility] [place] [facility] [address] [facility] [id number] [place] [address]- 7042 16 Jan, 2015 [facility] [place] [facility] [address] [facility] [id number][place] [address]- 5198 16 Jan, 2015 [facility] [place] [facility] [address] [facility] [id number][place]- 9966 13 Jan, 2015 [facility] [place] [facility] [address] [facility] [id number] [place] [address]- 6247 13 Jan, 2015 [facility] [place] [facility] [address] [id number] [place] [address]- 2999 13 Jan, 2015 [facility] [place] [facility] [address] [id number] [place] [address]- 6394 13 Jan, 2015 [facility] [place] [facility] [address] [id number] [place] [address]- 9608 10 Jan, 2015 [facility] [place] [facility] [address] [id number] [place] [address]- 5585 27 Dec, 2014 [facility] [place] [facility] [address] [id number] [place] [address]- 0725 Dec, [facility] [place] [facility] [address] [id number] [place] [address]- 0496 Dec, [facility] [place] [facility] [address] [id number] [place] [address]- 1648 26 Dec, 2014 [facility] [place] [facility] [address] [id number] [place] [address]- 1437 12 Dec, 2014 [facility] [place] [facility] [address] [id number] [place] [address]- 6796 12 Dec, 2014 [facility] [place] [facility] [address] [id number] [place] [address]- 3706 15 Nov, 2014 [facility] [place] [facility] [address] [id number] [place] [address]- 3552 15 Nov, 2014 [facility] [place] [facility] [address] [id number] [place] [address]- 8443 14 Nov, 2014 [facility] [place] [facility] [address] [id number] [place] [address]- 9591 14 Nov, 2014 [facility] [place] [facility] [address] [id number] [place] [address]- 1371 13 Nov, 2014 [facility] [place] [facility] [address] [id number] [place] [address]- 1994 Nov, [facility] [place] [facility] [address] [id number] [place] [address]- 5170 Nov, [facility] [place] [facility] [address] [id number] [place] [address]- 8638 Nov, [facility] [place] [facility] [address] [id number] [place] [address]- 6917 Nov, [facility] [place] [facility] [address] [id number] [place] [address]- 5434 Nov, [facility] [place] [facility] [address] [id number] [place] [address]- 7686 Nov, [facility] [place] [facility] [address] [id number] [place] [address]- 5623 Oct, [facility] [place] [facility] [address] [id number] [place] [address]- 5041 Oct, [facility] [place] [facility] [address] [id number] [place] [address]- 7748 Oct, [facility] [place] [facility] [address] [id number] [place] [address]- 3786 Oct, [facility] [place] [facility] [address] [id number] [place] [address]- 5313 Oct, [facility] [place] [facility] [address] [id number] [place] [address]- 5229 Oct, [facility] [place] [facility] [address] [id number], [place] [address]- 3938 Oct, [facility] [place] [facility] [address] [id number] [place] [address]- 5958 Oct, [facility] [place] [facility] [address] [id number] [place] [address]- 4939 Oct, [facility] [place] [facility] [address] [id number] [place] [address]- 7488 Oct, [facility] [place] [facility] [address] [id number][place] [address]- 7505 Sep, [facility] [place] [facility] [address] [id number] [place] [address]- 5542 Sep, [facility] [place] [facility] [address] [id number] [place] [address]- 7762 Sep, [facility] [place] [facility] [address] [facility] [id number] [place] [address]- 0701 Sep, [facility] [place] [facility] [address] [id number] [place] [address]- 1393 Sep, [facility] [place] [facility] [address] [id number] [place] [address]- 9427 Sep, [facility] [place] [facility] [address] [id number] [place] [address]- 5031 Sep, [facility] [place] [facility] [address] [facility] [id number] [place] [address]- 2159 Sep, [facility] [place] [facility] [address] [id number] [place] [address]- 9878 Sep, [facility] [place] [facility] [address] [facility] [id number] [place] [address]- 2907 Sep, [facility] [place] [facility] [address] [facility] [id number] [place] [address] Sep, [facility] [place] [facility] [address] [id number], [place] [address] Sep, [facility] [place] [facility] [address] [id number][place] [address] Sep, [facility] [place] [facility] [address] [id number] [address] 30 Aug, 2014 [facility] [place] [facility] [address] [id number] [place] [address] Aug, [facility] [place] [facility] [address] [facility] [id number][place] [address] Aug, [facility] [place] [facility] [address] [id number] [place] [address] Aug, 2013 [facility] [place] [facility] [address] [id number] [place] [address] Aug, 2013 [facility] [place] [facility] [address] [id number] [place] [address] Aug, [facility] [place] [facility] [address] [id number] [place] [address] Aug, [facility] [place] [facility] [address] [id number] [place] [address] Aug, [facility] [place] [facility] [address] [id number] [place] [address] Aug, [facility] [place] [facility] [address] [id number] [place] [address] Aug, [facility] [place] [facility] [address] [id number] [place] [address] Aug, [facility] [place] [facility] [address] [id number] [place] [address] Aug, [facility] [place] [facility] [address] [id number] [place] [address] Aug, [facility] [place] [facility] [address] [id number] [place] [address] Aug, [facility] [place] [facility] [address] [id number] [place] [address] Aug, [facility] [place] [facility] [address] [id number] [place] [address] Aug, [facility] [place] [facility] [address] [id number] [place] [address] Aug, [facility] [place] [facility] [address] [id number] [place] [address] Aug, [facility] [place] [facility] [address] [id number] [place] [address] 30 Jul, 2014 [facility] [address] [facility] [id number][place] [address] 30 Jul, 2014 [facility] [address] [facility] [id number] [address] 24 Jul, 2014 [facility] [address] [facility] [id number] [address] Jul, [facility] [address] [facility] [id number] [address] Jul, [facility] [address] [facility] [id number] [address] Jul, [facility] [address] [facility] [id number][place] [address] 15 Jul, 2014 [facility] [id number] [address] Jul, [facility] [id number], [place] [address] Jul, [facility] [address] [facility] [id number], [place] [address] Jul, [facility] [id number], [place] [address] Jul, [facility] [address] [id number] [address] Jul, [facility] [address] [facility] [id number][place] [address] Jul, [facility] [address] [facility] [id number][place] [address] Jul, IMMUNIZATIONS No Known Immunizations SOCIAL HISTORY Never Assessed REASON FOR VISIT BS f/u PLAN OF CARE VITAL SIGNS MEDICATIONS Unknown [...] Influenza illness, hyperglycemia 2017 Hospitalization History ED [place]- High BS (Pt left AMA) 01/05/[address] [facility]- DKA and UTI. Discharged 01/14/2018 Hospitalization History ED [place]- Nausea and Vomiting, cannot urinate 01/18/2018
--- OUTSIDE RECORDS SUMMARY | 2018-06-11 18:54 | XMS REPORT ---
Author Author KIMMIE MARCELINO Organization [facility] Address [address] [place] [address] Care Team Providers Care Personal Lines Sales Rep Name Role Phone BURKSMARCELINO Rene Unavailable PROBLEMS Type Condition ICD9-CM Code SHY90-YX Code Onset Dates Condition Status SNOMED Code Problem DM neuro manif type II E11.49 Active 67727693 Problem Seasonal allergic rhinitis due to pollen J30.1 Active 78235020 Problem Dental caries K02.9 Active 65966276 Problem Cervicalgia M54.2 Active 54896895 Problem Alterations of sensations R20.9 Active 372894723 Problem Diabetic mononeuropathy associated with type 2 diabetes mellitus E11.41 Active 005495122 Problem Arthritis M19.90 Active 4907376 Problem Primary insomnia F51.01 Active 5683438 Problem Body mass index (BMI) of 33.0-33.9 in adult Z68.33 Active 336241771 Problem Other obesity due to excess calories E66.09 Active 522999308 Problem Fibromyalgia M79.7 Active 36035358 Problem GERD (gastroesophageal reflux disease) K21.9 Active 528543109 Problem Hyperlipidemia E78.5 Active 02791210 Problem Degenerative disc disease, lumbar M51.36 Active 14265386 Problem CAD (coronary artery disease) I25.10 Active 43473845 Problem Tobacco abuse Z72.0 Active 98011134 Problem Essential hypertension I10 Active 74274886 Problem Tobacco abuse counseling Z71.6 Active 392981502 Problem correction 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 Active 455897273 Problem Chronic pain syndrome G89.4 Active 042551306 ALLERGIES No Information ENCOUNTERS Encounter Location Date Diagnosis [facility] [address] [facility] [id number] [place] [address] Jul, [facility] [address] [facility] [id number] [place] [address] 14 Apr, 2018 Hyperlipidemia E78.5 ; Chronic pain syndrome G89.4 ; Cervicalgia M54.2 ; DM neuro manif type II E11.49 ; [employer] 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 ; Nausea alone R11.0 ; Essential hypertension I10 ; GERD ( gastroesophageal reflux disease) K21.9 ; CAD (coronary artery disease) I25.10 and Diabetic mononeuropathy associated with type 2 diabetes mellitus E11.[address] [address]- [address] Apr, [place] [address] [address]- [address] March, Essential hypertension I10 ; DM neuro manif type II E11.49 and GERD (gastroesophageal reflux disease) K21.9 [place] [address] 57070- 1770 March, DM neuro manif type II E11.49 and GERD (gastroesophageal reflux disease) K21.9 [place] [address] 32261- 9015 March, [place] [address] 28087- 0685 Feb, Tobacco abuse Z72.0 [place] [address] 62589- 7429 Feb, Tobacco abuse Z72.0 [place] [address] 61245- 1806 Feb, Hypokalemia E87.[address] [address]- 6972 Feb, Hyperlipidemia E78.5 ; Essential hypertension I10 ; DM neuro manif type II E11.49 ; Fibromyalgia M79.7 ; Acute non-recurrent frontal sinusitis J01.10 ; Other obesity due to excess calories E66.09 and Body mass index (BMI) of 33.0-33.9 in adult Z68.[address] [address]- [address] Jan, Dysuria R30.0 [facility] [address] 27356- 5878 05 Jan, 2018 Dysuria R30.0 [place] [address] 55127- 6274 02 Jan, 2018 Acute cystitis with hematuria N30.01 ; DM neuro manif type II E11.49 ; [employer] 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 ; Essential hypertension I10 and Hospital discharge follow-up Z09 [place] [address] 3[address]- 3637 27 Dec, 2017 Chest pain, unspecified type R07.9 ; Dehydration E86.0 and Anuria R34 [place] [address] 37632- 4950 Dec, [place] [address] 47213- 4825 22 Dec, 2017 Hyperglycemia R73.9 ; Dehydration E86.0 and Acute cystitis with hematuria N30.01 [facility] [address] 8[address] Dec, [facility] [address] 59[address] Dec, [facility] [address] 39701 [address]20[address] Dec, [facility] [address] 02[address] 16 Dec, 2017 Dysuria R30.0 ; Acute cystitis with hematuria N30.01 and Weakness R53.1 [place] [address] 20155- [address] 09 Dec, 2017 [facility] [address] 18399- 8043 Nov, [place] [address] 31312- 9160 Nov, [place] [address] 96772- 6358 Nov, Essential hypertension I10 ; DM neuro manif type II E11.49 ; [employer] 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 ; Tobacco abuse Z72.0 ; Hyperlipidemia E78.5 ; Non-adherence to medical treatment Z91.19 ; GERD (gastroesophageal reflux disease) K21.9 ; Degenerative disc disease, lumbar M51.36 ; Fibromyalgia M79.7 ; Chronic pain syndrome G89.4 ; Dental caries K02.9 and Seasonal allergic rhinitis due to pollen J30.1 [place] [address] 30109- 9734 Nov, Alterations of sensations R20.9 [place] [address] 07103- 9984 Sep, DM neuro manif type II E11.49 ; Hyperlipidemia E78.5 ; Degenerative disc disease, lumbar M51.36 and Chronic pain syndrome G89.4 [place] [address] 64336- 4102 Sep, Arthritis M19.[address] 33166- 4753 Sep, Type 2 diabetes mellitus without complication E11.9 ; GERD ( gastroesophageal reflux disease) K21.9 ; Arthritis M19.90 and Chronic pain syndrome G89.4 [place] [address] 37597- 4991 Sep, [place] [address] 97366- 9849 Aug, [place] [address] 67860- 3990 Aug, Type 2 diabetes mellitus without complication E11.9 [place] [address] 09791- 2189 Aug, [place] [id number] [place] [address] 48[address] 16 Aug, 2017 [facility] [address] [place] [id number] [place] [address] 29136- 5433 16 Aug, 2017 [facility] [address] [place] [id number] [place] [address] 39935- 8616 26 Jul, 2017 [facility] [address] [place] [id number] [place] [address] 99820 -1716 22 Jul, 2017 Acute non-recurrent frontal sinusitis J01.10 [facility] [address] [place] [id number] [place] [address] 54990- 4935 20 Jul, 2017 CAD (coronary artery disease) I25.10 and GERD ( gastroesophageal reflux disease) K21.9 [place] [address] [place] [id number] [place] [address] 00153- 7723 14 Jul, 2017 Localized swelling, mass and lump, neck R22.1 [place] [address] [place] [id number] [place] [address] 41955- 2414 06 Jul, 2017 [place] [address] [place] [id number] [place] [address] 57705- 2163 Jun, Type 2 diabetes mellitus without complication E11.9 ; Primary insomnia F51.01 ; Alterations of sensations R20.9 ; Hyperlipidemia E78.5 ; GERD (gastroesophageal reflux disease) K21.9 ; Essential hypertension I10 ; correction 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 ; Tobacco abuse Z72.0 ; Tobacco abuse counseling Z71.6 and CAD (coronary artery disease) I25.10 [facility] [id number] [place] [address] 28311- 5415 May, [place] [address] [place] [id number] [place] [address] 74214- 7559 May, Type 2 diabetes mellitus without complication E11.9 [place] [id number] [place] [address] 06702- 9859 May, [place] [address] [place] [id number] [place] [address] 34465- 8860 March, [facility] [address] [place] [id number] [place] [address] 25347- 7830 Feb, [facility] [address] 08767 -5122 Jan, Acute suppurative otitis media of left ear with spontaneous rupture of tympanic membrane, recurrence not specified H66.012 [place] [address] 52438- 4144 Dec, Type 2 diabetes mellitus without complication E11.9 ; Lumbago M54.5 ; Cervicalgia M54.2 ; Hyperlipidemia E78.5 ; GERD ( gastroesophageal reflux disease) K21.9 ; Chronic pain syndrome G89.4 ; Dysuria R30.0 and Essential hypertension I10 [place] [address] 02895- 9697 Oct, [place] [address] 17231- 5523 Sep, Diabetic mononeuropathy associated with type 2 diabetes mellitus E11.41 and Coughing R05 [place] [address] 67209- 5661 Sep, Diabetic mononeuropathy associated with type 2 diabetes mellitus E11.41 and Coughing R05 [place] [address] [place] [id number] [place] [address] 56113- 2818 Sep, Onychomycosis B35.1 ; Neuritis M79.2 and Type 2 diabetes mellitus without complication E11.9 [place] [address] [place] [id number] [place] [address] 55452- 0555 Sep, [place] [address] 54764- 7252 Sep, Cough R05 ; Seasonal allergic rhinitis due to pollen J30.1 and Acute upper respiratory infection, unspecified J06.9 [place] [address] 76360- 2077 Sep, [place] [address] [place] [id number] [place] [address] 58577- 2442 Aug, [place] [address] 18625- 7985 Jul, Type 2 diabetes mellitus without complication E11.9 ; Chronic pain G89.29 ; Essential hypertension I10 and Acute non-recurrent maxillary sinusitis J01.[address] 81559- 7595 Jul, Chronic pain syndrome G89.4 ; Lumbago M54.5 and Cervicalgia M54.[address] 11742- 8806 Jul, [address] 23617- 5072 Jul, [address] 39154- 5427 Jun, Onychomycosis B35.1 ; Onychocryptosis L60.0 and DM neuro manif type II E11.49 [place] [id number] [place] [address] 87627- 8385 Jun, Type 2 diabetes mellitus without complication E11.9 ; Pain in unspecified hip M25.559 ; Other chronic pain G89.29 ; Lumbago M54.5 ; Chronic pain G89.29 ; Insomnia, unspecified G47.00 ; GERD (gastroesophageal reflux disease) K21.9 and Dental caries K02.9 [place] [id number] [place] [address] 98738- 7328 Jun, Type 2 diabetes mellitus without complication E11.9 ; Lumbago M54.5 ; Chronic pain G89.29 ; Insomnia, unspecified G47.00 ; GERD ( gastroesophageal reflux disease) K21.9 ; Dental caries K02.9 ; Pain in unspecified hip M25.559 and Other chronic pain G89.29 [address] [place] [address] 17644- 9269 May, [address] 85508- 8109 May, Type 2 diabetes mellitus without complication E11.9 ; Essential hypertension I10 ; Chronic pain syndrome G89.4 ; Other seasonal allergic rhinitis J30.2 and Insomnia, unspecified G47.00 [place] [address] 66810- 9228 Apr, [address] 19373- 9857 Apr, Hypertension I10 and Chronic pain G89.[address] 77005- 8002 March, Onychomycosis B35.1 ; Onychocryptosis L60.0 and Type 2 diabetes mellitus without complication E11.9 [place] [address] [place] [id number] [place] [address] 31887- 2954 March, Type 2 diabetes mellitus without complication E11.9 ; Essential hypertension I10 ; Alterations of sensations R20.9 ; Chronic pain syndrome G89.4 ; Tobacco abuse Z72.0 and Tobacco abuse counseling Z71.6 [place] [id number] [place] [address] 72064- 3959 Feb, Cough R05 ; Type 2 diabetes mellitus without complication E11.9 ; Tobacco abuse counseling Z71.6 and Chronic pain G89.29 [place] [address] [place] [id number] [place] [address] 13246- 1889 Feb, [address] 92188- 8648 Feb, Type 2 diabetes mellitus without complication E11.9 ; Lumbago M54.5 ; Cervicalgia M54.2 ; Degenerative disc disease, lumbar M51.36 and Numbness and tingling of both legs 782.0 [facility] [address] [place] [id number] [place] [address] [id number] Jan, Dental caries K02.9 and Encounter for dental examination Z01.20 [place] [address] 85027- 3076 Jan, Type 2 diabetes mellitus without complication E11.9 [place] [address] 42386- 8590 Jan, Type 2 diabetes mellitus without complication E11.9 ; Numbness and tingling of both legs 782.0 ; Fibromyalgia M79.7 ; Hyperlipidemia E78.5 ; Lumbago M54.5 ; Cervicalgia M54.2 ; Hypertension I10 ; CAD (coronary artery disease) I25.10 ; Tobacco abuse Z72.0 ; Tobacco abuse counseling Z71.6 and GERD (gastroesophageal reflux disease) K21.9 [place] [address] 21655- 4609 Jan, [place] [address] 90883- 0205 Dec, [facility] [address] [id number] Dec, Dental examination Z01.20 and Dental caries K02.9 [place] [address] 05412- 3590 Dec, Edema R60.9 ; Type 2 diabetes mellitus without complication E11.9 ; Hypertension I10 and Mouth pain K13.79 [place] [address] 64154- 5656 Dec, Degenerative disc disease, lumbar M51.36 [place] [address] 95700- 2496 Dec, [place] [address] 61506- 7289 Nov, Insomnia, unspecified G47.00 [place] [address] 45533- 2613 Nov, Type 2 diabetes mellitus without complication E11.9 ; Lumbago M54.5 ; Degenerative disc disease, lumbar M51.36 ; Fibromyalgia M79.7 ; Coronary artery disease I25.10 ; Hyperlipidemia E78.5 ; Controlled substance agreement signed Z79.899 ; Dysuria R30.0 ; Insomnia, unspecified G47.00 ; GERD ( gastroesophageal reflux disease) K21.9 ; Hypertension 401.9 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 [place] [address] 98043- 6275 Nov, [place] [address] 86700- 6304 Oct, Degenerative disc disease, lumbar M51.36 ; Cervicalgia M54.2 ; Insomnia, unspecified G47.00 ; Decreased GFR R94.4 and GERD ( gastroesophageal reflux disease) K21.9 [place] [address] 67819- 8885 Oct, Lumbago M54.5 [place] [address] 18931- 1051 Oct, Low back pain M54.5 [place] [address] 83392- 0420 Oct, [place] [address] 94801- 5866 Oct, Disorientation R41.0 [place] [address] 06424- 7087 Oct, Type 2 diabetes mellitus without complication E11.9 ; Disorientation R41.0 and Chest pain R07.9 [place] [address] 79301- 3441 Oct, [place] [address] 47458- 2091 Sep, Low back pain M54.5 [place] [address] 18769- 1366 Sep, Insomnia, unspecified G47.00 [facility] [address] 15859- 5344 Aug, Degenerative disc disease, lumbar M51.36 ; Type 2 diabetes mellitus without complication E11.9 and Encounter for immunization Z23 [facility] [address] [place] [id number] [place] [address] 83532- 5778 Aug, [facility] [address] 67158- 3585 Aug, [facility] [address] 63864- 0572 Aug, [facility] [address] 88834- 7686 Jul, [facility] [address] 47699- 6920 Jun, [facility] [address] [place] [id number] [place] [address] 29411- 5530 Jun, Chest pain 786.50 and Lumbago 724.2 [facility] [address] 16661- 2284 Jun, [facility] [address] [place] [id number] [place] [address] 64553- 5632 Jun, [facility] [address] [place] [id number] [place] [address] [id number] Jun, Dental examination V72.2 [facility] [address] [place] [id number] [place] [address] 99095- 3885 Jun, [facility] [address] 06554- 1910 May, Left shoulder pain 719.41 and Numbness and tingling of both legs 782.0 [facility] [address] [place] [id number] [place] [address] 41686- 7728 May, Cough 786.2 ; Numbness and tingling of both legs 782.0 and Acute rhinitis 460 [facility] [address] [place] [id number] [place] [address] 87565- 6654 May, [facility] [address] [place] [id number] [place] [address] 12996- 3425 Apr, [facility] [address] 34336- 1467 Apr, Bilateral lower extremity edema 782.3 ; Lumbago 724.2 and Insomnia 780.52 [facility] [address] [place] [id number] [place] [address] 83283- 5471 Apr, [facility] [address] [place] [id number] [place] [address] 25082- 2483 Apr, [facility] [address] [place] [id number] [place] [address] 73282- 8340 March, Seborrheic keratosis 702.19 and Skin lesion of face 709.9 [facility] [address] [place] [id number] [place] [address] 86034- 4860 March, [facility] [address] [place] [id number] [place] [address] 58074- 9389 March, [facility] [address] [place] [id number] [place] [address] 08625- 9936 March, [facility] [address] [place] [id number] [place] [address] 84938- 3538 March, [facility] [address] [place] [id number] [place] [address] 60957- 9204 Feb, [facility] [address] [place] [id number] [place] [address] 57944- 5719 Feb, [facility] [address] [place] [id number] [place] [address] 77620- 2728 Jan, [facility] [address] [place] [id number] [place] [address] 37963- 7818 25 Jan, 2015 [facility] [place] [facility] [address] [id number] [place] [address]- 5357 16 Jan, 2015 [facility] [place] [facility] [address] [id number] [place] 1237 16 Jan, 2015 [facility] [place] [facility] [address] [id number] [place] [address]- 3378 16 Jan, 2015 [facility] [place] [facility] [address] [id number] [place] [address]- 0122 16 Jan, 2015 [facility] [place] [facility] [address] [id number] [place] [address]- 0035 Jan, [facility] [place] [facility] [address] [id number] [place] [address]- 5457 13 Jan, 2015 [facility] [place] [facility] [address] [id number] [place] [address]- 3920 Jan, [facility] [place] [facility] [address] [id number] [place] [address]- 1241 13 Jan, 2015 [facility] [place] [facility] [address] [id number] [place] [address]- 1750 Jan, [facility] [place] [facility] [address] [id number] [place] [address]- 5619 Dec, [facility] [place] [facility] [address] [id number] [place] [address]- 5442 Dec, 2014 [facility] [place] [facility] [address] [id number] [place] [address]- 2419 Dec, 2014 [facility] [place] [facility] [address] [id number] [place] [address]- 0447 Dec, 2014 [facility] [place] [facility] [address] [id number] [place] [address]- 2896 Dec, [facility] [place] [facility] [address] [id number] [place] [address]- 3870 Dec, [facility] [place] [facility] [address] [id number] [place] [address]- 9960 15 Nov, 2014 [facility] [place] [facility] [address] [id number] [place] [address]- 9424 15 Nov, 2014 [facility] [place] [facility] [address] [id number] [place] [address]- 7783 Nov, [facility] [place] [facility] [address] [id number] [place] [address]- 2303 Nov, [facility] [place] [facility] [address] [id number] [place] [address]- 7227 Nov, [facility] [place] [facility] [address] [id number] [place] [address]- 3855 Nov, [facility] [place] [facility] [address] [id number] [place] [address]- 6208 Nov, [facility] [place] [facility] [address] [id number] [place] [address]- 9965 Nov, [facility] [place] [facility] [address] [id number] [place] [address]- 3236 Nov, [facility] [place] [facility] [address] [id number] [place] [address]- 4032 Nov, [facility] [place] [facility] [address] [id number] [place] [address]- 6543 Nov, [facility] [place] [facility] [address] [id number] [place] [address]- 8117 Oct, [facility] [place] [facility] [address] [id number] [place] [address]- 7239 Oct, [facility] [place] [facility] [address] [id number] [place] [address]- 9976 Oct, [facility] [place] [facility] [address] [id number] [place] [address]- 2448 Oct, [facility] [place] [facility] [address] [id number] [place] [address]- 1582 Oct, [facility] [place] [facility] [address] [id number] [place] [address]- 9294 Oct, [facility] [place] [facility] [address] [id number] [place] [address]- 1674 Oct, [facility] [place] [facility] [address] [facility] [id number] [place] [address]- 0538 Oct, [facility] [place] [facility] [address] [id number] [place] [address]- 6637 Oct, [facility] [place] [facility] [address] [id number] [place] [address]- 4735 Oct, [facility] [place] [facility] [address] [id number] [place] [address]- 0402 Sep, [facility] [place] [facility] [address] [id number] [place] [address]- 7994 Sep, [facility] [place] [facility] [address] [id number] [place] [address]- 0590 Sep, [facility] [place] [facility] [address] [id number] [place] [address]- 5889 Sep, [facility] [place] [facility] [address] [id number] [place] [address]- 7956 Sep, [facility] [place] [facility] [address] [id number] [place] [address]- 7869 Sep, [facility] [place] [facility] [address] [id number] [place] [address]- 1180 Sep, [facility] [place] [facility] [address] [id number] [place] [address]- 1906 Sep, [facility] [place] [facility] [address] [id number] [place] [address]- 6578 Sep, [facility] [place] [facility] [address] [id number] [place] [address]- 3113 Sep, [facility] [place] [facility] [address] [id number] [place] [address]- 9198 Sep, [facility] [place] [facility] [address] [id number] [place] [address]- 5742 Sep, [facility] [place] [facility] [address] [id number] [place] [address]- 6913 Sep, [facility] [place] [facility] [address] [id number] [place] [address]- 7487 30 Aug, 2014 [facility] [place] [facility] [address] [id number] [place] [address]- 8336 30 Aug, 2014 [facility] [place] [facility] [address] [id number] [place] [address] 30 Aug, 2014 [facility] [place] [facility] [address] [id number] [place] [address] Aug, [facility] [place] [facility] [address] [id number] [place] [address] Aug, [facility] [place] [facility] [address] [id number] [place] [address] Aug, [facility] [place] [facility] [address] [id number] [place] [address] Aug, [facility] [place] [facility] [address] [id number] [place] [address] Aug, [facility] [place] [facility] [address] [id number] [place] [address] Aug, [facility] [place] [facility] [address] [id number] [place] [address] Aug, [facility] [place] [facility] [address] [id number] [place] [address] Aug, [facility] [place] [facility] [address] [id number] [place] [address] Aug, [facility] [place] [facility] [address] [id number] [place] [address] Aug, [facility] [place] [facility] [address] [id number] [place] [address] Aug, [facility] [place] [facility] [address] [id number] [place] [address] Aug, [facility] [place] [facility] [address] [id number] [place] [address] Aug, [facility] [place] [facility] [address] [id number] [place] [address] Aug, [facility] [place] [facility] [address] [id number] [place] [address] Aug, [facility] [place] [facility] [address] [id number] [place] [address] 30 Jul, 2013 [facility] [place] [facility] [address] [id number] [place] [address] 30 Jul, 2013 [facility] [place] [facility] [address] [id number] [place] [address] 24 Jul, 2013 [facility] [place] [facility] [address] [id number] [place] [address] 24 Jul, 2013 [facility] [place] [facility] [address] [id number] [place] [address] 23 Jul, 2013 [facility] [place] [facility] [address] [id number] [place] [address] 23 Jul, 2013 [facility] [place] [facility] [address] [id number] [place] [address] 15 Jul, 2013 [facility] [place] [facility] [address] [id number] [place] [address] 15 Jul, 2013 [facility] [place] [facility] [address] [id number] [place] [id number] 15 Jul, 2013 [facility] [address] [id number] [place] [address] 15 Jul, 2013 [facility] [address] [id number] [place] [address] Jul, [facility] [address] [facility] [id number] [place] [address] Jul, [facility] [address] [facility] [id number] [place] [address] Jul, [facility] [address] [facility] [id number] [place] [address] Jul, IMMUNIZATIONS No Known Immunizations SOCIAL HISTORY Never Assessed REASON FOR VISIT Medication refill request PLAN OF CARE VITAL SIGNS MEDICATIONS Medication Instructions Dosage Frequency Start Date End Date Duration Status Gabapentin 600 MG Orally 3 times a day 1 tablet 8h Active RESULTS No Results PROCEDURES No Known procedures INSTRUCTIONS MEDICATIONS ADMINISTERED No Known Medications MEDICAL (GENERAL) HISTORY Type Description Date Medical History hearing loss Medical History hypertension Medical History acute renal failure Medical History hyperlipidemia Medical History type II diabetes Medical History Arthritis Medical History degenerative disease lumbosacral spine Medical History chronic pain r/t DDD Medical History fibromyalgia Medical History UT-stent to LAD Surgical History cholecystectomy 1983 Surgical [...] Influenza illness, hyperglycemia 2017 Hospitalization History [facility]- High BS (Pt left AMA) 01/05/2018 Hospitalization History [facility]- DKA and UTI. Discharged 01/14/2018 Hospitalization History [facility]- Nausea and Vomiting, cannot urinate 01/18/2018
== END 2018-06-11 18:23 | disposition home or self-care (01) ==
LOC: EDUNIT# 16:31 → ER 16:32
DX: R07.89 Other chest pain (principal); E11.9 Type 2 diabetes mellitus without complications; R07.2 Precordial pain; I25.10 Atherosclerotic heart disease of native coronary artery without angina pectoris; J42 Unspecified chronic bronchitis; G43.909 Migraine, unspecified, not intractable, without status migrainosus; K21.9 Gastro-esophageal reflux disease without esophagitis; F41.9 Anxiety disorder, unspecified; E11.40 Type 2 diabetes mellitus with diabetic neuropathy, unspecified; Z87.442 Personal history of urinary calculi; Z95.5 Presence of coronary angioplasty implant and graft; Z91.040 Latex allergy status; Z88.6 Allergy status to analgesic agent; Z88.8 Allergy status to other drugs, medicaments and biological substances; Z79.82 Long term (current) use of aspirin; Z79.4 Long term (current) use of insulin; Z87.891 Personal history of nicotine dependence; Z80.1 Family history of malignant neoplasm of trachea, bronchus and lung; Z80.0 Family history of malignant neoplasm of digestive organs
CPT/HCPCS: 36415; 71045; 80053; 84484; 85025; 93005; 96374

== ENCOUNTER 2018-07-20 12:48 | Outpatient (RCR) | payer MEDICARE ==
[~2018-07-20] VITALS: Ht 152.4 cm; Wt 77.1 kg
[2018-07-20 12:32] VITALS: BP 134/82
[~2018-07-20 12:48] MED LIST changes: +AMLO5TAB7 PO; +BENZ100C18 PO; +HYDR-4226 PO; -HYDR-757 PO; +METF-397 PO; +METF-399 PO; -METF10002 PO; -METF500T5 PO; -OXYC-197 PO; -OXYC-202 PO; +OXYC1TAB12 PO; +OXYC1TAB87 PO
[2018-07-31] MEDS ORDERED: INSU100I29 SQ (14:37)
[2018-08-02] MEDS ORDERED: PROM25SU44 RC (10:32)
[2018-08-02] MEDS ORDERED: RANI-10 PO (10:32)
== END 2018-07-22 | disposition home or self-care (01) ==
LOC: SDC 12:48
PROVIDERS: ATTEND Surgery
DX: I87.2 Venous insufficiency (chronic) (peripheral) (principal)
CPT/HCPCS: 96523

== ENCOUNTER 2018-07-30 21:20 | Inpatient (IN) | payer MEDICARE ==
[~2018-07-30] VITALS: Ht 152.4 cm; Wt 71.4 kg
[2018-07-31] MEDS ORDERED: NS IV 1000 ML 1,000 ML IV SCH
--- NOTE | 2018-07-31 00:13 | ED Abdominal Pain ---
General Chief Complaint: Abdominal/GI Problems Stated Complaint: NAUSEA/PAIN IN ABD/BS UP Source of Information: Patient Exam Limitations: No Limitations History of Present Illness Date Seen by Provider: Jul 31, 2018 Time Seen by Provider: 00:00 Initial Comments Patient is a 58-year-old female who presents to the emergency room with complaints of right lower quadrant abdominal pain. Nausea, vomiting, diarrhea. She reports that Wednesday of this week she started developing nausea vomiting and diarrhea and yesterday developed right lower quadrant abdominal pain. Patient has had several visits to the emergency room for similar complaints and she reports that this pain is very different from any other visits. She also reports elevated blood sugars. Timing/Duration: 3-4 Days, Changing Over Time Severity/Quality: Sharp Location: RLQ Radiation: No Radiation Associated Symptoms: Nausea/Vomiting Allergies and Home Medications Allergies Coded Allergies: ketorolac (Verified Allergy, Severe, ANAPHYLAXIS, PT TAKES ASA AT HOME, ) ondansetron (Verified Allergy, Intermediate, RASH, 07/19/14) RASH/ HIVES exenatide (Verified Allergy, Unknown, NAUSEA, 07/19/14) NON STOP VOMITING latex (Verified Allergy, Unknown, RASH, 07/19/14) metoclopramide (Verified Allergy, Unknown, RESTLESS LEGS, 07/19/14) Home Medications Amlodipine Besylate 5 Mg Tablet, 5 MG PO DAILY, (Reported) Aspirin 81 Mg Tablet.dr, 81 MG PO DAILY, (Reported) Atorvastatin Calcium 40 Mg Tablet, 40 MG PO HS, (Reported) Gabapentin 800 Mg Tablet, 800 MG PO TID, (Reported) Insulin Detemir 100 Unit/1 Ml Insuln.pen, 40 UNITS SQ HS Prescribed by: TABATHA COVARRUBIAS on 07/31/18 1437 Insulin Lispro 100 Unit/1 Ml Insuln.pen, SQ AC, (Reported) SHE IS UNSURE OF HER SLIDING SCALE AND CAN NOT REMEMBER HOW MANY UNITS SHE TYPICALLY USES, SHE TESTS HER BLOOD SUGAR AND ENTERS HER CARBS AND HER METER TELLS HER HOW MANY UNITS OF INSULIN TO USE Linagliptin 5 Mg Tablet, 5 MG PO DAILY, (Reported) Omeprazole Magnesium 20 Mg Tablet.dr, 20 MG PO DAILY, (Reported) Oxycodone HCl 10 Mg Tablet, 10 MG PO DAILY PRN for PAIN-MODERATE TO SEVERE, ( Reported) Oxycodone HCl/Acetaminophen 1 Each Tablet, 1 TAB PO EVERY 4-6 HOURS PRN for PAIN -MODERATE, (Reported) Patient Home Medication List Home Medication List Reviewed: Yes Review of Systems Review of Systems Constitutional: see HPI; No chills, No fever Gastrointestinal: See HPI, Abdominal Pain, Diarrhea, Nausea, Vomiting All Other Systems Reviewed Negative Unless Noted: Yes Past Jcshiof-Xikhsa-Wninek Hx Past Med/Social Hx: Reviewed Nursing Past Med/Soc Hx Patient Social History Alcohol Beverage of Choice: Wine Type Used: Cigarettes Former Smoker, Quit: Nov 23, 2017 2nd Hand Smoke Exposure: No Recent Foreign Travel: No Contact w/Someone Who Travel: No Recent Hopitalizations: No Immunizations Up To Date Tetanus Booster (TDap): Unknown PED Vaccines UTD: No Date of Pneumonia Vaccine: Dec 12, 2013 Date of Influenza Vaccine: Sep 07, 2017 Seasonal Allergies Seasonal Allergies: Yes Past Medical History Surgeries: Yes (4 BACK SURGERIES AND 1 CERVICAL SURGERY) Cardiac, Coronary Stent, Ear Surgery, Gallbladder, Orthopedic, Renal Respiratory: Yes Chronic Bronchitis Currently Using CPAP: No Currently Using BIPAP: No Cardiac: Yes (CARDIAC STENTS) Chronic Edema/Swelling, Coronary Artery Disease, Deep Vein Thrombosis, High Cholesterol, Hypertension Neurological: Yes (NEUROPATHY IN HANDS AND FEET) Headaches /Migraines, Neuropathy 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 Disorders: No 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 Sexually Transmitted Disease: No HIV/AIDS: No Genitourinary: Yes Bladder Infection, Kidney Stones, Renal Failure Gastrointestinal: Yes (nausea) Gastroesophageal Reflux Musculoskeletal: Yes (CHRONIC NECK PAIN, PSORIATIC ARTHRITIS ) Degenerate Disk Disease, Chronic Back Pain Endocrine: Yes Diabetes, Insulin dep HEENT: Yes Chronic Ear Infection Loss of Vision: Denies Hearing Impairment: Hard of Hearing Cancer: No Psychosocial: Yes Anxiety Integumentary: Yes Psoriasis Blood Disorders: No Adverse Reaction/Blood Tranf: No Family Medical History Reviewed Nursing Family Hx Cancer of mouth 19 FATHER ( of esophogeal cancer.) Cardiovascular disease 19 MOTHER G8 BROTHER Completed stroke 19 FATHER G8 BROTHER Diabetes mellitus G8 BROTHER FH: lung cancer 19 MOTHER Hypertension 19 FATHER Kidney disease 19 FATHER Myocardial infarction 19 MOTHER G8 BROTHER Respiratory disorder No Family History of: AIDS No Pertinent Family Hx Physical Exam Vital Signs Vital Signs - First Documented 07/30/18 22:13 Temp 98.0 Pulse 91 Resp 20 B/P (MAP) 146/81 (102) Pulse Ox 97 O2 Delivery Room Air Capillary Refill : Height/Weight/BMI Height: 5'0.00" Weight: 170lbs. 0.0oz. 77.156594yd; 32.8 BMI Method:Stated General Appearance: WD/WN, no apparent distress Respiratory: chest non-tender, lungs clear, normal breath sounds, no respiratory distress, no accessory muscle use Cardiovascular: regular rate, rhythm, no edema, no gallop, no JVD, no murmur Gastrointestinal: normal bowel sounds, soft, no organomegaly, no pulsatile mass , tenderness (rlq abdominal tenderness on palpation.) Back: normal inspection, no CVA tenderness, no vertebral tenderness Neurologic/Psychiatric: alert, oriented x 3 Skin: normal color, warm/dry Progress/Results/Core Measures Results/Orders Lab Results Laboratory Tests Test 07/31/18 00:17 07/31/18 01:19 Range/Units White Blood Count 13.1 H 4.3-11.0 10^3/uL Red Blood Count 4.81 4.35-5.85 10^6/uL Hemoglobin 14.6 11.5-16.0 G/DL Hematocrit 42 35-52 % Mean Corpuscular Volume 87 80-99 FL Mean Corpuscular Hemoglobin 30 25-34 PG Mean Corpuscular Hemoglobin Concent 35 32-36 G/DL Red Cell Distribution Width 13.2 10.0-14.5 % Platelet Count 332 130-400 10^3/uL Mean Platelet Volume 10.3 7.4-10.4 FL Neutrophils (%) (Auto) 67 42-75 % Lymphocytes (%) (Auto) 27 12-44 % Monocytes (%) (Auto) 4 0-12 % Eosinophils (%) (Auto) 1 0-10 % Basophils (%) (Auto) 1 0-10 % Neutrophils # (Auto) 8.7 H 1.8-7.8 X 10^3 Lymphocytes # (Auto) 3.6 1.0-4.0 X 10^3 Monocytes # (Auto) 0.6 0.0-1.0 X 10^3 Eosinophils # (Auto) 0.2 0.0-0.3 10^3/uL Basophils # (Auto) 0.1 0.0-0.1 10^3/uL Sodium Level 137 135-145 MMOL/L Potassium Level 4.1 3.6-5.0 MMOL/L Chloride Level 102 98-107 MMOL/L Carbon Dioxide Level 18 L 21-32 MMOL/L Anion Gap 17 H 5-14 MMOL/L Blood Urea Nitrogen 17 7-18 MG/DL Creatinine 1.17 0.60-1.30 MG/DL Estimat Glomerular Filtration Rate 47 BUN/Creatinine Ratio 15 Glucose Level 516 *H 70-105 MG/DL Calcium Level 9.6 8.5-10.1 MG/DL Corrected Calcium 9.4 8.5-10.1 MG/DL Total Bilirubin 0.6 0.1-1.0 MG/DL Aspartate Amino Transf (AST/SGOT) 11 5-34 U/L Alanine Aminotransferase (ALT/SGPT) 14 0-55 U/L Alkaline Phosphatase 82 40-136 U/L Total Protein 7.1 6.4-8.2 GM/DL Albumin 4.2 3.2-4.5 GM/DL Amylase Level 27 25-125 U/L Lipase 25 8-78 U/L Urine Color YELLOW Urine Clarity CLEAR Urine pH 6 5-9 Urine Specific [place] 1.015 L 1.016-1.022 Urine Protein 3+ H NEGATIVE Urine Glucose (UA) 4+ H NEGATIVE Urine Ketones 3+ H NEGATIVE Urine Nitrite NEGATIVE NEGATIVE Urine Bilirubin NEGATIVE NEGATIVE Urine Urobilinogen NORMAL NORMAL MG/DL Urine Leukocyte Esterase 1+ H NEGATIVE Urine RBC (Auto) NEGATIVE NEGATIVE Urine RBC NONE /HPF Urine WBC RARE /HPF Urine Squamous Epithelial Cells 2-5 /HPF Urine Crystals NONE /LPF Urine Bacteria NEGATIVE /HPF Urine Casts PRESENT /LPF Urine Hyaline Casts 0-2 H /LPF Urine Mucus MODERATE H /LPF Urine Culture Indicated NO My Orders Orders - ZELALEM EVANS Comprehensive Metabolic Panel (07/30/18 23:59) Lipase (07/30/18 23:59) Amylase (07/30/18 23:59) Ua Culture If Indicated (07/30/18 23:59) Saline Lock/Iv-Start (07/30/18 23:59) Cbc With Automated Diff (07/30/18 23:59) Promethazine Injection (Phenergan Injec (07/31/18 00:00) Ns Iv 1000 Ml (Sodium Chloride 0.9%) (07/31/18 00:00) Ct Abdomen/Pelvis Wo (07/31/18 00:14) Diphenhydramine Injection (Benadryl Inje (07/31/18 00:45) Diphenhydramine Injection (Benadryl Inje (07/31/18 00:36) Insulin (Regular) Human (Humulin R (Per (07/31/18 01:00) Insulin (Regular) Human (Humulin R (Per (07/31/18 01:00) Fentanyl Injection (Sublimaze Injection (07/31/18 01:15) Promethazine Injection (Phenergan Injec (07/31/18 01:45) Medications Given in ED Vital Signs/I&O 07/30/18 22:13 Temp 98.0 Pulse 91 Resp 20 B/P (MAP) 146/81 (102) Pulse Ox 97 O2 Delivery Room Air Progress Progress Note : Time: 00:15 Progress Note I have seen and evaluated the patient. After several IV attempts we were unable to get an IV established. Patient does have a port. CT with contrast has been changed to CT without contrast. 0140: Patient was informed of CT reports and laboratory findings. Informed her that I be calling Dr. Peters was on-call for Dr. Aviles for plans for admission due to elevated blood sugars and ketones in the urine. 0144: 30 Dr. Covarrubias at this time. She states that the patient can be admitted to the floor to her services with sliding scale C. Diagnostic Imaging Diagonstic Imaging: CT Plain Films/CT/US/NM/MRI: abdomen, pelvis Comments Statrad: Impression bilateral renal cyst no renal or ureteral stones and no secondary CT findings to suggest recent passage of stone or stone fragments. Right ovarian cyst. Normal appendix. No discrete acute abdominal or pelvic pathology otherwise noted. Departure Communication (Admissions) Time/Spoke to Admitting Phy: 01:[address] Covarrubias at this time. Impression Primary Impression: Nausea vomiting and diarrhea Additional Impressions: Uncontrolled diabetes mellitus Diabetic ketoacidosis Disposition: ADMITTED INPATIENT Condition: Stable/Unchanged Admissions Decision to Admit Reason: Admit from ER (General) Decision to Admit/Date: Jul 31, 2018 Time/Decision to Admit Time: 01:55 Departure-Patient Inst. Referrals: WINDY GRIFFIN DO (PCP/Family) Primary Care Physician Scripts Insulin Detemir (Levemir Flextouch) 100 Unit/1 Ml Insuln.pen 40 UNITS SQ HS for 1 Day, EA Prov: TABATHA COVARRUBIAS MD 07/31/18 ZELALEM EVANS Jul 31, 2018 00:13
[2018-07-31 00:28] LABS: BASOPHILS # (AUTO) 0.1 10^3/uL (0.0-0.1); BASOPHILS % (AUTO) 1 % (0-10); EOSINOPHILS # (AUTO) 0.2 10^3/uL (0.0-0.3); EOSINOPHILS % (AUTO) 1 % (0-10); HEMATOCRIT 42 % (35-52); HEMOGLOBIN 14.6 G/DL (11.5-16.0); LYMPHOCYTES # (AUTO) 3.6 X 10^3 (1.0-4.0); LYMPHOCYTES % (AUTO) 27 % (12-44); MEAN CORPUSCULAR HEMOGLOBIN 30 PG (25-34); MEAN CORPUSCULAR HGB CONC 35 G/DL (32-36); MEAN CORPUSCULAR VOLUME 87 FL (80-99); MEAN PLATELET VOLUME 10.3 FL (7.4-10.4); MONOCYTES # (AUTO) 0.6 X 10^3 (0.0-1.0); MONOCYTES % (AUTO) 4 % (0-12); NEUTROPHILS # (AUTO) 8.7 X 10^3 (1.8-7.8); NEUTROPHILS % (AUTO) 67 % (42-75); PLATELET COUNT 332 10^3/uL (130-400); RED BLOOD COUNT 4.81 10^6/uL (4.35-5.85); RED CELL DISTRIBUTION WIDTH 13.2 % (10.0-14.5); WHITE BLOOD COUNT 13.1 10^3/uL (4.3-11.0)
[2018-07-31] MEDS ORDERED: diphenhydrAMINE 50 MG/ML INJ (BENADRYL) ONE (00:36)
[2018-07-31] MEDS ORDERED: diphenhydrAMINE 50 MG/ML INJ (BENADRYL) IM ONE (00:45)
[2018-07-31 00:49] LABS: ALBUMIN 4.2 GM/DL (3.2-4.5); BILIRUBIN,TOTAL 0.6 MG/DL (0.1-1.0); CALCIUM 9.6 MG/DL (8.5-10.1); CREATININE SERUM 1.17 MG/DL (0.60-1.30); POTASSIUM 4.1 MMOL/L (3.6-5.0); TOTAL PROTEIN 7.1 GM/DL (6.4-8.2)
[2018-07-31] MEDS ORDERED: inSUlin (REGULAR) HUMAN 1 UNIT/0.01 ML (CHARGE PER UNIT) IV ONE (01:00)
[2018-07-31] MEDS ORDERED: inSUlin (REGULAR) HUMAN 1 UNIT/0.01 ML (CHARGE PER UNIT) SC ONE (01:00)
[2018-07-31] MEDS ORDERED: fentaNYL INJECTION 100 MCG/2 ML AMP IVP ONE (01:15)
[2018-07-31 01:29] LABS: BILIRUBIN,URINE NEGATIVE (NEGATIVE); CLARITY,URINE CLEAR; COLOR,URINE YELLOW; GLUCOSE, URINE (UA) 4+ (NEGATIVE); KETONES,URINE 3+ (NEGATIVE); LEUKOCYTE ESTERASE ,URINE 1+ (NEGATIVE); NITRITE,URINE NEGATIVE (NEGATIVE); PH,URINE 6 (5-9); PROTEIN,URINE 3+ (NEGATIVE); UROBILINOGEN,URINE NORMAL (NORMAL)
[2018-07-31 01:37] LABS: BACTERIA,URINE NEGATIVE /HPF; HYALINE CASTS, URINE 0-2 /LPF; WBC,URINE RARE /HPF
[2018-07-31] MEDS ORDERED: PROMETHAZINE INJ 25 MG/ML (PHENERGAN) AMP IVP ONE ×2 (01:45)
[2018-07-31 02:12] LABS: ABG BASE EXCESS -5.9 MMOL/L (-2.5-2.5); ABG OXYGEN SATURATION 94 % (94-100); ABG PCO2 33 MMHG (35-45); ABG PH 7.36 (7.37-7.43); ABG PO2 72 MMHG (79-93); ABG TCO2 19.6 MMOL/L (21.0-31.0)
[2018-07-31 02:14] LABS: ALLENS TEST YES-POS; INSPIRED O2 ROOM AIR; VENTILATOR NO
--- OUTSIDE RECORDS SUMMARY | 2018-07-31 02:39 | XMS REPORT ---
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 Name Role Phone MARCELINO BURKS Unavailable PROBLEMS Type Condition ICD9-CM Code [id number] Code Onset Dates Condition Status SNOMED Code Problem Dental caries K02.9 Active 28009151 Problem Primary insomnia F51.01 Active 5676076 Problem Seasonal allergic rhinitis due to pollen J30.1 Active 94260331 Problem Type 2 diabetes mellitus with hyperglycemia E11.65 Active 910265389570089 Problem Hyperlipidemia E78.5 Active 61321734 Problem Cervicalgia M54.2 Active 44219862 Problem Alterations of sensations R20.9 Active 790856353 Problem Other obesity due to excess calories E66.09 Active 975393754 Problem Arthritis M19.90 Active 8196870 Problem Diabetic mononeuropathy associated with type 2 diabetes mellitus E11.41 Active 782673197 Problem Body mass index (BMI) of 33.0-33.9 in adult Z68.33 Active 136541676 Problem GERD (gastroesophageal reflux disease) K21.9 Active 149550641 Problem long-term 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 Active 379928185 Problem Degenerative disc disease, lumbar M51.36 Active 47060014 Problem Fibromyalgia M79.7 Active 30668100 Problem Tobacco abuse Z72.0 Active 47750596 Problem Tobacco abuse counseling Z71.6 Active 817582333 Problem Essential hypertension I10 Active 58191441 Problem Chronic pain syndrome G89.4 Active 758847286 Problem CAD (coronary artery disease) I25.10 Active 01032802 Problem DM neuro manif type II E11.49 Active 48652242 ALLERGIES No Information ENCOUNTERS Encounter Location Date Diagnosis [facility] [address] [facility] [id number] [address] Jul, [facility] [address] [id number] [address] Jul, [facility] [id number] [place] [address] 01510- 6528 Apr, Type 2 diabetes mellitus with hyperglycemia E11.65 [place] [id number] [place] [address] 01462- 4442 Apr, Hyperlipidemia E78.5 ; Chronic pain syndrome G89.4 ; Cervicalgia M54.2 ; DM neuro manif type II E11.49 ; long-term 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 ; Nausea alone R11.0 ; Essential hypertension I10 ; GERD ( gastroesophageal reflux disease) K21.9 ; CAD (coronary artery disease) I25.10 and Diabetic mononeuropathy associated with type 2 diabetes mellitus E11.41 [place] [address] 01101- 1266 Apr, [place] [address] 56143- 5412 March, Essential hypertension I10 ; DM neuro manif type II E11.49 and GERD (gastroesophageal reflux disease) K21.9 [place] [address] 09020- 6611 March, DM neuro manif type II E11.49 and GERD (gastroesophageal reflux disease) K21.9 [place] [id number] [place] [address] 19699- 2096 March, [place] [address] 20798- 3569 Feb, Tobacco abuse Z72.0 [place] [address] 20986- 9267 Feb, Tobacco abuse Z72.0 [place] [address] 99568- 3386 Feb, Hypokalemia E87.6 [place] [address] 46437- 1493 Feb, Hyperlipidemia E78.5 ; Essential hypertension I10 ; DM neuro manif type II E11.49 ; Fibromyalgia M79.7 ; Acute non-recurrent frontal sinusitis J01.10 ; Other obesity due to excess calories E66.09 and Body mass index (BMI) of 33.0-33.9 in adult Z68.33 [place] [address] 62034- 7514 05 Jan, 2018 Dysuria R30.0 [place] [address] 51481- 0043 05 Jan, 2018 Dysuria R30.0 [place] [address] 22413- 5085 02 Jan, 2018 Acute cystitis with hematuria N30.01 ; DM neuro manif type II E11.49 ; long-term 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 ; Essential hypertension I10 and Hospital discharge follow-up Z09 [place] [address] 14426- 8345 27 Dec, 2017 Chest pain, unspecified type R07.9 ; Dehydration E86.0 and Anuria R34 [place] [address] 96177- 8076 Dec, [place] [address] 82767- 0320 Dec, Hyperglycemia R73.9 ; Dehydration E86.0 and Acute cystitis with hematuria N30.01 [facility] [address] 36776 -8579 Dec, [facility] [address] 89130 -5942 Dec, [facility] [address] [place] [address] 31358 -2098 Dec, [facility] [place] [address] 03210 -5595 16 Dec, 2017 Dysuria R30.0 ; Acute cystitis with hematuria N30.01 and Weakness R53.1 [place] [id number] [place] [address] 28672- 1691 Dec, [place] [id number] [place] [address] 64648- 7781 Nov, [place] [id number] [place] [address] 04297- 6656 Nov, [place] [address] 23072- 3376 Nov, Essential hypertension I10 ; DM neuro manif type II E11.49 ; 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 ; Tobacco abuse Z72.0 ; Hyperlipidemia E78.5 ; Non-adherence to medical treatment Z91.19 ; GERD (gastroesophageal reflux disease) K21.9 ; Degenerative disc disease, lumbar M51.36 ; Fibromyalgia M79.7 ; Chronic pain syndrome G89.4 ; Dental caries K02.9 and Seasonal allergic rhinitis due to pollen J30.1 [place] [id number] [place] [address] 98871- 0046 12 Nov, 2017 Alterations of sensations R20.[address] 86798- 7600 Sep, DM neuro manif type II E11.49 ; Hyperlipidemia E78.5 ; Degenerative disc disease, lumbar M51.36 and Chronic pain syndrome G89.4 [place] [id number] [place] [address] 71571- 5510 Sep, Arthritis M19.[address] 16605- 7897 07 Sep, 2017 Type 2 diabetes mellitus without complication E11.9 ; GERD ( gastroesophageal reflux disease) K21.9 ; Arthritis M19.90 and Chronic pain syndrome G89.4 [place] [id number] [place] [address] 95490- 0386 Sep, [place] [address] 55103- 7155 Aug, [facility] [id number] [place] [address] 43432- 5086 18 Aug, 2017 Type 2 diabetes mellitus without complication E11.9 [facility] [id number] [place] [address] 90729- 8267 17 Aug, 2017 [facility] [id number] [place] [address] 86415- 6639 Aug, [facility] [id number] [place] [address] 31486- 1607 Aug, [facility] [id number] [place] [address] 27510- 6469 26 Jul, 2017 [facility] [id number] [place] [address] 94985 -8847 22 Jul, 2017 Acute non-recurrent frontal sinusitis J01.10 [place] [id number] [place] [address] 08211- 6168 20 Jul, 2017 CAD (coronary artery disease) I25.10 and GERD ( gastroesophageal reflux disease) K21.9 [place] [id number] [place] [address] 06224- 9947 14 Jul, 2017 Localized swelling, mass and lump, neck R22.1 [place] [id number] [place] [address] 11492- 5929 06 Jul, 2017 [place] [id number] [place] [address] 56582- 1276 15 Jun, 2017 Type 2 diabetes mellitus without complication E11.9 ; Primary insomnia F51.01 ; Alterations of sensations R20.9 ; Hyperlipidemia E78.5 ; GERD (gastroesophageal reflux disease) K21.9 ; Essential hypertension I10 ; 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 ; Tobacco abuse Z72.0 ; Tobacco abuse counseling Z71.6 and CAD (coronary artery disease) I25.10 [place] [id number] [place] [address] 89900- 3886 May, [facility] [id number] [place] [address] 40563- 2188 May, Type 2 diabetes mellitus without complication E11.9 [place] [id number] [place] [address] 17274- 0541 May, [facility] [id number] [place] [address] 21944- 6701 March, [facility] [address] 55253- 9733 Feb, [facility] [id number] [place] [address] 08801 -5845 Jan, Acute suppurative otitis media of left ear with spontaneous rupture of tympanic membrane, recurrence not specified H66.012 [place] [id number] [place] [address] 60614- 7695 Dec, Type 2 diabetes mellitus without complication E11.9 ; Lumbago M54.5 ; Cervicalgia M54.2 ; Hyperlipidemia E78.5 ; GERD ( gastroesophageal reflux disease) K21.9 ; Chronic pain syndrome G89.4 ; Dysuria R30.0 and Essential hypertension I10 [place] [id number] [place] [address] 84230- 1492 Oct, [place] [id number] [place] [address] 15855- 7469 Sep, Diabetic mononeuropathy associated with type 2 diabetes mellitus E11.41 and Coughing R05 [place] [id number] [place] [address] 18552- 5269 Sep, Diabetic mononeuropathy associated with type 2 diabetes mellitus E11.41 and Coughing R05 [place] [id number] [place] [address] 97708- 9739 Sep, Onychomycosis B35.1 ; Neuritis M79.2 and Type 2 diabetes mellitus without complication E11.9 [place] [id number] [place] [address] 97723- 0318 14 Sep, 2016 [place] [id number] [place] [address] 02571- 0117 03 Sep, 2016 Cough R05 ; Seasonal allergic rhinitis due to pollen J30.1 and Acute upper respiratory infection, unspecified J06.9 [place] [id number] [place] [address] 82330- 5062 02 Sep, 2016 [place] [address] 42478- 5368 Aug, [place] [id number] [place] [address] 75426- 3452 13 Jul, 2016 Type 2 diabetes mellitus without complication E11.9 ; Chronic pain G89.29 ; Essential hypertension I10 and Acute non-recurrent maxillary sinusitis J01.00 [place] [id number] [place] [address] 37672- 7354 Jul, Chronic pain syndrome G89.4 ; Lumbago M54.5 and Cervicalgia M54.2 [place] [id number] [place] [address] 13853- 5991 Jul, [place] [id number] [place] [address] 61259- 0633 Jul, [place] [id number] [place] [address] 27315- 5582 Jun, Onychomycosis B35.1 ; Onychocryptosis L60.0 and DM neuro manif type II E11.49 [place] [id number] [place] [address] 43995- 0354 04 Jun, 2016 Type 2 diabetes mellitus without complication E11.9 ; Pain in unspecified hip M25.559 ; Other chronic pain G89.29 ; Lumbago M54.5 ; Chronic pain G89.29 ; Insomnia, unspecified G47.00 ; GERD (gastroesophageal reflux disease) K21.9 and Dental caries K02.9 [place] [id number] [place] [address] 04826- 0716 Jun, Type 2 diabetes mellitus without complication E11.9 ; Lumbago M54.5 ; Chronic pain G89.29 ; Insomnia, unspecified G47.00 ; GERD ( gastroesophageal reflux disease) K21.9 ; Dental caries K02.9 ; Pain in unspecified hip M25.559 and Other chronic pain G89.29 [place] [id number] [place] [address] 41256- 3497 May, [place] [address] 01271- 4549 May, Type 2 diabetes mellitus without complication E11.9 ; Essential hypertension I10 ; Chronic pain syndrome G89.4 ; Other seasonal allergic rhinitis J30.2 and Insomnia, unspecified G47.00 [place] [id number] [place] [address] 72467- 9946 Apr, [address] 84281- 9389 Apr, Hypertension I10 and Chronic pain G89.29 [place] [id number] [place] [address] 58705- 9804 March, Onychomycosis B35.1 ; Onychocryptosis L60.0 and Type 2 diabetes mellitus without complication E11.9 [place] [id number] [place] [address] 05020- 8655 March, Type 2 diabetes mellitus without complication E11.9 ; Essential hypertension I10 ; Alterations of sensations R20.9 ; Chronic pain syndrome G89.4 ; Tobacco abuse Z72.0 and Tobacco abuse counseling Z71.6 [place] [id number] [place] [address] 10065- 9614 Feb, Cough R05 ; Type 2 diabetes mellitus without complication E11.9 ; Tobacco abuse counseling Z71.6 and Chronic pain G89.29 [place] [id number] [place] [address] 47809- 9334 Feb, [address] [place] [address]- 1254 Feb, Type 2 diabetes mellitus without complication E11.9 ; Lumbago M54.5 ; Cervicalgia M54.2 ; Degenerative disc disease, lumbar M51.36 and Numbness and tingling of both legs 782.0 [facility] [id number] [place] [address] [id number] Jan, Dental caries K02.9 and Encounter for dental examination Z01.20 [facility] [address] 63720- 6236 Jan, Type 2 diabetes mellitus without complication E11.9 [place] [address] 81787- 6028 Jan, Type 2 diabetes mellitus without complication E11.9 ; Numbness and tingling of both legs 782.0 ; Fibromyalgia M79.7 ; Hyperlipidemia E78.5 ; Lumbago M54.5 ; Cervicalgia M54.2 ; Hypertension I10 ; CAD (coronary artery disease) I25.10 ; Tobacco abuse Z72.0 ; Tobacco abuse counseling Z71.6 and GERD (gastroesophageal reflux disease) K21.9 [place] [address] 97052- 3333 Jan, [facility] [id number] [place] [address] 40412- 0067 Dec, [facility] [id number] [place] [address] [id number] Dec, Dental examination Z01.20 and Dental caries K02.9 [place] [id number] [place] [address] 50358- 2541 Dec, Edema R60.9 ; Type 2 diabetes mellitus without complication E11.9 ; Hypertension I10 and Mouth pain K13.79 [facility] [id number] [place] [address] 69490- 6521 Dec, Degenerative disc disease, lumbar M51.36 [place] [address] [place] [address]- 8115 Dec, [place] [address] 00148- 4902 Nov, Insomnia, unspecified G47.00 [place] [address] 39510- 3699 Nov, Type 2 diabetes mellitus without complication E11.9 ; Lumbago M54.5 ; Degenerative disc disease, lumbar M51.36 ; Fibromyalgia M79.7 ; Coronary artery disease I25.10 ; Hyperlipidemia E78.5 ; Controlled substance agreement signed Z79.899 ; Dysuria R30.0 ; Insomnia, unspecified G47.00 ; GERD ( gastroesophageal reflux disease) K21.9 ; Hypertension 401.9 and long-term 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 [place] [address] 58532- 0920 Nov, [place] [address] 27595- 2098 Oct, Degenerative disc disease, lumbar M51.36 ; Cervicalgia M54.2 ; Insomnia, unspecified G47.00 ; Decreased GFR R94.4 and GERD ( gastroesophageal reflux disease) K21.9 [place] [id number] [place] [address] 66076- 7592 Oct, Lumbago M54.5 [place] [address] 01155- 2904 Oct, Low back pain M54.5 [place] [address] 72439- 5891 Oct, [place] [address] 68826- 7508 Oct, Disorientation R41.0 [place] [address] 37242- 9941 Oct, Type 2 diabetes mellitus without complication E11.9 ; Disorientation R41.0 and Chest pain R07.9 [facility] [id number] [place] [address] 82865- 9079 Oct, [facility] [address] 15520- 5625 Sep, Low back pain M54.5 [facility] [address] 24194- 8271 Sep, Insomnia, unspecified G47.00 [facility] [address] 70316- 6850 Aug, Degenerative disc disease, lumbar M51.36 ; Type 2 diabetes mellitus without complication E11.9 and Encounter for immunization Z23 [facility] [id number] [place] [address] 21612- 3976 Aug, [facility] [address] 25209- 5629 Aug, [facility] [id number] [place] [address] 41695- 4017 Aug, [facility] [id number] [place] [address] 80938- 0114 Jul, [facility] [id number] [place] [address] 71028- 6171 Jun, [facility] [id number] [place] [address] 51012- 6255 Jun, Chest pain 786.50 and Lumbago 724.2 [facility] [id number] [place] [address] 61625- 9558 Jun, [facility] [address] 42515- 3960 Jun, [facility] [id number] [place] [address] [id number] Jun, Dental examination V72.2 [facility] [id number] [place] [address] 63269- 8623 Jun, [facility] [address], [place] [address]- 2799 May, Left shoulder pain 719.41 and Numbness and tingling of both legs 782.0 [facility] [id number] [place] [address] 27845- 7222 May, Cough 786.2 ; Numbness and tingling of both legs 782.0 and Acute rhinitis 460 [facility] [id number] [place] [address] 61935- 1112 May, [facility] [id number] [place] [address] 41969- 7961 Apr, [facility] [id number] [place] [address] 72324- 0674 Apr, Bilateral lower extremity edema 782.3 ; Lumbago 724.2 and Insomnia 780.52 [facility] [id number] [place] [address] 97762- 3183 Apr, [facility] [id number] [place] [address] 37611- 8261 Apr, [facility] [id number] [place] [address] 14370- 4931 March, Seborrheic keratosis 702.19 and Skin lesion of face 709.9 [facility] [id number] [address]- 5986 March, [facility] [id number] [place] [address] 35314- 7895 March, [facility] [id number] [place] [address] 946721- 5151 March, [facility] [address], [place] [address]- 0456 March, [facility] [id number] [place] [address] [id number]- 7669 Feb, [facility] [place] [facility] [address] [id number] [place] [address]- 0725 13 Feb, 2015 [facility] [place] [facility] [address] [id number] [place] [address]- 6303 25 Jan, 2015 [facility] [place] [facility] [address] [id number] [place] [address]- 8899 25 Jan, 2015 [facility] [place] [facility] [address] [id number] [place] [address]- 2062 16 Jan, 2015 [facility] [place] [facility] [address] [id number] [place] [address]- 6957 16 Jan, 2015 [facility] [place] [facility] [address] [id number] [place] [address]- 0254 16 Jan, 2015 [facility] [place] [facility] [address] [id number] [place] [address]- 9468 16 Jan, 2015 [facility] [place] [facility] [address] [id number] [place] [address]- 0559 13 Jan, 2015 [facility] [place] [facility] [address] [id number] [place] [address]- 9205 13 Jan, 2015 [facility] [place] [facility] [address] [id number] [place] [address]- 1357 13 Jan, 2015 [facility] [place] [facility] [address] [id number] [place] [address]- 0244 13 Jan, 2015 [facility] [place] [facility] [address] [id number], [place] [address]- 2376 10 Jan, 2015 [facility] [place] [facility] [address] [id number] [place] [address]- 6514 27 Dec, 2014 [facility] [place] [facility] [address] [id number] [place] [address]- 3919 Dec, [facility] [place] [facility] [address] [id number] [place] [address]- 5207 26 Dec, 2014 [facility] [place] [facility] [address] [id number] [place] [address]- 5879 Dec, [facility] [address] [id number] [place] [address]- 2429 Dec, [facility] [place] [facility] [address] [id number] [place] [address]- 1552 Dec, [facility] [address] [id number] [place] [address]- 7927 Nov, [facility] [place] [facility] [address] [id number] [place] [address]- 8230 15 Nov, 2014 [facility] [address] [id number] [place] [address]- 1385 Nov, [facility] [place] [facility] [address] [id number] [place] [address]- 3889 Nov, [facility] [address] [id number] [place] [address]- 4850 Nov, [facility] [address] [id number] [place] [address]- 2923 Nov, [facility] [place] [facility] [address] [id number] [place] [address]- 6783 Nov, [facility] [address] [id number] [place] [address]- 4902 Nov, [facility] [place] [facility] [address] [id number] [place] [address]- 5154 Nov, [facility] [place] [facility] [address] [id number] [place] [address]- 5684 Nov, [facility] [place] [facility] [address] [id number] [place] [address]- 8732 Nov, [facility] [place] [facility] [address] [id number] [place] [address]- 8956 Oct, [facility] [place] [facility] [address] [id number] [place] 2070 Oct, [facility] [place] [facility] [address] [id number] [place] [address]- 2253 Oct, [facility] [place] [facility] [address] [id number] [place] [address] Oct, [facility] [place] [facility] [address] [id number] [place] [address] Oct, [facility] [place] [facility] [address] [id number] [place] [address] Oct, [facility] [place] [facility] [address] [id number] [place] [address] Oct, [facility] [place] [facility] [address] [id number] [place] [address] Oct, [facility] [place] [facility] [address] [id number] [place] [address] Oct, [facility] [place] [facility] [address] [id number] [place] [address] Oct, [facility] [place] [facility] [address] [id number] [place] [address] Sep, [facility] [place] [facility] [address] [id number] [place] [address] Sep, [facility] [place] [facility] [address] [id number], [place] [address] Sep, [facility] [place] [facility] [address] [id number], [place] [address] Sep, [facility] [place] [facility] [address] [id number] [place] [address] Sep, [facility] [place] [facility] [address] [id number] [place] [address] Sep, [facility] [place] [facility] [address] [id number], [place] [address] Sep, [facility] [place] [facility] [address] [id number], [place] [address] Sep, [facility] [place] [facility] [address] [id number] [place] [address] Sep, [facility] [place] [facility] [address] [id number], [place] [address] 17 Sep, 2014 [facility] [place] [facility] [address] [facility] [id number] [place] [address] Sep, [facility] [place] [facility] [address] [id number] [place] [address] Sep, [facility] [place] [facility] [address] [id number] [place] [address] Sep, [facility] [place] [facility] [address] [id number] [place] [address] Aug, [facility] [place] [facility] [address] [id number], [place] [address] Aug, [facility] [place] [facility] [address] [id number] [place] [address] Aug, [facility] [place] [facility] [address] [facility] [id number] [place] [address] 30 Aug, 2014 [facility] [place] [facility] [address] [facility] [id number], [place] [address] Aug, [facility] [place] [facility] [address] [id number], [place] [address] 30 Aug, 2014 [facility] [place] [facility] [address] [id number], [place] [address] Aug, [facility] [place] [facility] [address] [id number], [place] [address] 24 Aug, 2014 [facility] [place] [facility] [address] [facility] [id number], [place] [address] Aug, [facility] [place] [facility] [address] [facility] [id number], [place] [address] Aug, [facility] [place] [facility] [address] [id number] [place] [address] Aug, [facility] [place] [facility] [address] [id number] [place] [address] Aug, [facility] [place] [facility] [address] [id number] [place] [address] Aug, 2013 [facility] [place] [facility] [address] [id number] [place] [address] Aug, 2013 [facility] [place] [facility] [address] [id number] [place] [address] Aug, [facility] [place] [facility] [address] [id number] [place] [address] Aug, [facility] [place] [facility] [address] [id number] [place] [address] Aug, [facility] [place] [facility] [address] [id number] [place] [address] Aug, [facility] [place] [facility] [address] [id number] [place] [address] 30 Sep, 2013 [facility] [place] [facility] [address] [id number] [place] [address] 30 Sep, 2013 [facility] [place] [facility] [address] [id number] [place] [address] 24 Sep, 2013 [facility] [place] [facility] [address] [id number] [place] [address] 24 Sep, 2013 [facility] [place] [facility] [address] [id number] [place] [address] 23 Sep, 2013 [facility] [place] [facility] [address] [id number] [place] [address] 23 Sep, 2013 [facility] [place] [facility] [address] [id number] [place] [address] 15 Sep, 2013 [facility] [place] [facility] [address] [id number] [place] [address] 15 Jul, 2014 [facility] [address] [facility] [id number], [place] [address] 15 Jul, 2014 [facility] [address] [facility] [id number], [place] [address] 15 Jul, 2014 [facility] [address] [id number], [place] [address] Jul, [facility] [address] [id number], [place] [address] Jul, [facility] [address] [facility] [id number], [place] [address] Jul, [facility] [address] [id number], [place] [address] Jul, IMMUNIZATIONS No Known Immunizations SOCIAL HISTORY Never Assessed REASON FOR VISIT labs PLAN OF CARE VITAL SIGNS MEDICATIONS Unknown [...] Influenza illness, hyperglycemia 2017 Hospitalization History [facility]- High BS (Pt left AMA) 01/05/2018 Hospitalization History [facility]- DKA and UTI. Discharged 01/14/2018 Hospitalization History [facility]- Nausea and Vomiting, cannot urinate 01/18/2018
--- OUTSIDE RECORDS SUMMARY | 2018-07-31 02:40 | XMS REPORT ---
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 Supervisor Name Role Phone MARCELINO BURKS Unavailable PROBLEMS Type Condition ICD9-CM Code [id number] Code Onset Dates Condition Status SNOMED Code Problem Dental caries K02.9 Active 79489626 Problem Primary insomnia F51.01 Active 0524128 Problem Seasonal allergic rhinitis due to pollen J30.1 Active 38328366 Problem Type 2 diabetes mellitus with hyperglycemia E11.65 Active [id number] Problem Hyperlipidemia E78.5 Active 83964266 Problem Cervicalgia M54.2 Active 36856134 Problem Alterations of sensations R20.9 Active 159783548 Problem Other obesity due to excess calories E66.09 Active 002205145 Problem Arthritis M19.90 Active 4614572 Problem Diabetic mononeuropathy associated with type 2 diabetes mellitus E11.41 Active 812266114 Problem Body mass index (BMI) of 33.0-33.9 in adult Z68.33 Active 339503847 Problem GERD (gastroesophageal reflux disease) K21.9 Active 081902937 Problem prison 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 Active 958848904 Problem Degenerative disc disease, lumbar M51.36 Active 20526766 Problem Fibromyalgia M79.7 Active 29673161 Problem Tobacco abuse Z72.0 Active 13712253 Problem Tobacco abuse counseling Z71.6 Active 358880928 Problem Essential hypertension I10 Active 98294784 Problem Chronic pain syndrome G89.4 Active 722940777 Problem CAD (coronary artery disease) I25.10 Active 34210319 Problem DM neuro manif type II E11.49 Active 63849291 ALLERGIES Substance Reaction Event Type Date Status Zofran Unknown Drug Allergy Apr, Active Reglan restless leg; anything in reglan family Drug Allergy Apr, Active Toradol Unknown Drug Allergy Apr, Active LATEX Unknown Non Drug Allergy Apr, Active ENCOUNTERS Encounter Location Date Diagnosis [place] [address] [place] [id number] [place] [address] 47460- 8878 Jul, [place] [address] 54703- 8648 Jul, [place] [address] [place] [id number] [place] [address] 99854- 5321 Apr, Type 2 diabetes mellitus with hyperglycemia E11.65 [place] [address] 98516- 5804 14 Apr, 2018 Hyperlipidemia E78.5 ; Chronic pain syndrome G89.4 ; Cervicalgia M54.2 ; DM neuro manif type II E11.49 ; prison 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 ; Nausea alone R11.0 ; Essential hypertension I10 ; GERD ( gastroesophageal reflux disease) K21.9 ; CAD (coronary artery disease) I25.10 and Diabetic mononeuropathy associated with type 2 diabetes mellitus E11.41 [place] [address] 94149- 4772 Apr, [place] [address] [place] [id number] [place] [address] 83925- 2769 March, Essential hypertension I10 ; DM neuro manif type II E11.49 and GERD (gastroesophageal reflux disease) K21.9 [place] [address] [place] [id number] [place] [address] 78524- 3486 March, DM neuro manif type II E11.49 and GERD (gastroesophageal reflux disease) K21.9 [place] [address] [place] [id number] [place] [address] 33688- 1166 March, [place] [address] [place] [id number] [place] [address] 29014- 3481 Feb, Tobacco abuse Z72.0 [place] [address] [place] [id number] [place] [address] 78438- 7756 Feb, Tobacco abuse Z72.0 [place] [address] [place] [id number] [place] [address] 77822- 9355 Feb, Hypokalemia E87.6 [place] [address] 50511- 3505 Feb, Hyperlipidemia E78.5 ; Essential hypertension I10 ; DM neuro manif type II E11.49 ; Fibromyalgia M79.7 ; Acute non-recurrent frontal sinusitis J01.10 ; Other obesity due to excess calories E66.09 and Body mass index (BMI) of 33.0-33.9 in adult Z68.33 [place] [address] 24356- 1701 Jan, Dysuria R30.0 [place] [address] 03353- 4496 Jan, Dysuria R30.0 [place] [address] 25891- 1572 Jan, Acute cystitis with hematuria N30.01 ; DM neuro manif type II E11.49 ; 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 ; Essential hypertension I10 and Hospital discharge follow-up Z09 [place] [address] 09331- 9332 Dec, Chest pain, unspecified type R07.9 ; Dehydration E86.0 and Anuria R34 [place] [address] 76397- 8182 Dec, [place] [address] 09828- 8798 Dec, Hyperglycemia R73.9 ; Dehydration E86.0 and Acute cystitis with hematuria N30.01 [facility] [place] [address] 70718 -8815 Dec, [facility] [place] [address] 25605 -1411 Dec, [facility] [address] 99705 -4473 Dec, [facility] [id number] [place] [address] 56900 -7075 16 Dec, 2017 Dysuria R30.0 ; Acute cystitis with hematuria N30.01 and Weakness R53.1 [facility] [address] [place] [id number] [place] [address] 70150- 8962 09 Dec, 2017 [facility] [address] 08214- 1775 Nov, [place] [address] 17171- 1351 Nov, [facility] [address] 79972- 5349 Nov, Essential hypertension I10 ; DM neuro manif type II E11.49 ; 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 ; Tobacco abuse Z72.0 ; Hyperlipidemia E78.5 ; Non-adherence to medical treatment Z91.19 ; GERD (gastroesophageal reflux disease) K21.9 ; Degenerative disc disease, lumbar M51.36 ; Fibromyalgia M79.7 ; Chronic pain syndrome G89.4 ; Dental caries K02.9 and Seasonal allergic rhinitis due to pollen J30.1 [facility] [address] [place] [id number] [place] [address] 80607- 3076 Nov, Alterations of sensations R20.9 [place] [address] [place] [id number] [place] [address] 61226- 4089 Sep, DM neuro manif type II E11.49 ; Hyperlipidemia E78.5 ; Degenerative disc disease, lumbar M51.36 and Chronic pain syndrome G89.4 [place] [address] [place] [id number] [place] [address] 95429- 4979 Sep, Arthritis M19.90 [facility] [address] 43556- 7300 Sep, Type 2 diabetes mellitus without complication E11.9 ; GERD ( gastroesophageal reflux disease) K21.9 ; Arthritis M19.90 and Chronic pain syndrome G89.4 [facility] [address] [address] 3781 Sep, [facility] [address] [place] [id number] [place] [address] 62304- 6966 Aug, [facility] [address] [place] [address] [id number] [place] [address] 86824- 8380 Aug, Type 2 diabetes mellitus without complication E11.9 [facility] [address] [place] [id number] [place] [address] 21869- 0696 Aug, [facility] [address] [place] [id number] [place] [address] 85457- 3620 Aug, [facility] [address] [place] [id number] [place] [address] 58333- 3761 Aug, [facility] [address] [place] [id number] [place] [address] 36549- 9174 Jul, [facility] [address] [place] [address] [id number] [place] [address] 43524 -7298 Jul, Acute non-recurrent frontal sinusitis J01.10 [place] [address] [place] [id number] [place] [address] 37086- 7701 20 Jul, 2017 CAD (coronary artery disease) I25.10 and GERD ( gastroesophageal reflux disease) K21.9 [place] [address] [place] [id number] [place] [address] 30691- 6957 14 Jul, 2017 Localized swelling, mass and lump, neck R22.1 [place] [address] [place] [id number] [place] [address] 21836- 9642 06 Jul, 2017 [place] [address] [place] [id number] [place] [address] 56841- 0114 Jun, Type 2 diabetes mellitus without complication E11.9 ; Primary insomnia F51.01 ; Alterations of sensations R20.9 ; Hyperlipidemia E78.5 ; GERD (gastroesophageal reflux disease) K21.9 ; Essential hypertension I10 ; prison 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 ; Tobacco abuse Z72.0 ; Tobacco abuse counseling Z71.6 and CAD (coronary artery disease) I25.10 [place] [address] [place] [id number] [place] [address] 59775- 8094 May, [place] [address] [place] [id number] [place] [address] 03013- 2344 May, Type 2 diabetes mellitus without complication E11.9 [place] [address] 14539- 6177 May, [place] [address] [place] [id number] [place] [address] 39099- 4133 March, [place] [address] 91318- 3284 Feb, [facility] [address] [place] [address] [id number] [place] [address] 58632 -6133 Jan, Acute suppurative otitis media of left ear with spontaneous rupture of tympanic membrane, recurrence not specified H66.012 [place] [address] [place] [id number] [place] [address] 38883- 5018 Dec, Type 2 diabetes mellitus without complication E11.9 ; Lumbago M54.5 ; Cervicalgia M54.2 ; Hyperlipidemia E78.5 ; GERD ( gastroesophageal reflux disease) K21.9 ; Chronic pain syndrome G89.4 ; Dysuria R30.0 and Essential hypertension I10 [place] [address] [place] [id number] [place] [address] 90189- 2841 Oct, [place] [address] [place] [id number] [place] [address] 64142- 2481 Sep, Diabetic mononeuropathy associated with type 2 diabetes mellitus E11.41 and Coughing R05 [place] [address] [place] [id number] [place] [address] 15221- 7064 Sep, Diabetic mononeuropathy associated with type 2 diabetes mellitus E11.41 and Coughing R05 [place] [address] [place] [id number] [place] [address] 66330- 0289 Sep, Onychomycosis B35.1 ; Neuritis M79.2 and Type 2 diabetes mellitus without complication E11.9 [place] [address] [place] [id number] [place] [address] 76685- 0530 14 Sep, 2016 [place] [address] [place] [id number] [place] [address] 78119- 0077 Sep, Cough R05 ; Seasonal allergic rhinitis due to pollen J30.1 and Acute upper respiratory infection, unspecified J06.9 [place] [address] [place] [id number] [place] [address] 12932- 8090 Sep, [place] [address] 51910- 6678 Aug, [place] [address] 90738- 2391 Jul, Type 2 diabetes mellitus without complication E11.9 ; Chronic pain G89.29 ; Essential hypertension I10 and Acute non-recurrent maxillary sinusitis J01.00 [place] [address] [place] [id number] [place] [address] 84977- 9531 Jul, Chronic pain syndrome G89.4 ; Lumbago M54.5 and Cervicalgia M54.2 [place] [address] [place] [id number] [place] [address] 80431- 7738 Jul, [place] [address] [place] [id number] [place] [address] 30655- 4618 Jul, [place] [address] [place] [id number] [place] [address] 36043- 6793 Jun, Onychomycosis B35.1 ; Onychocryptosis L60.0 and DM neuro manif type II E11.49 [place] [id number] [place] [address] 83053- 8023 Jun, Type 2 diabetes mellitus without complication E11.9 ; Pain in unspecified hip M25.559 ; Other chronic pain G89.29 ; Lumbago M54.5 ; Chronic pain G89.29 ; Insomnia, unspecified G47.00 ; GERD (gastroesophageal reflux disease) K21.9 and Dental caries K02.[address] 39109- 7222 Jun, Type 2 diabetes mellitus without complication E11.9 ; Lumbago M54.5 ; Chronic pain G89.29 ; Insomnia, unspecified G47.00 ; GERD ( gastroesophageal reflux disease) K21.9 ; Dental caries K02.9 ; Pain in unspecified hip M25.559 and Other chronic pain G89.29 [place] [address] 38051- 1157 May, [address] 69314- 7978 May, Type 2 diabetes mellitus without complication E11.9 ; Essential hypertension I10 ; Chronic pain syndrome G89.4 ; Other seasonal allergic rhinitis J30.2 and Insomnia, unspecified G47.00 [place] [address] 28484- 4355 Apr, [address] 00648- 5051 Apr, Hypertension I10 and Chronic pain G89.[address] 25063- 2965 March, Onychomycosis B35.1 ; Onychocryptosis L60.0 and Type 2 diabetes mellitus without complication E11.9 [place] [address] [place] [id number] [place] [address] 03357- 1797 March, Type 2 diabetes mellitus without complication E11.9 ; Essential hypertension I10 ; Alterations of sensations R20.9 ; Chronic pain syndrome G89.4 ; Tobacco abuse Z72.0 and Tobacco abuse counseling Z71.[address] 83528- 8546 Feb, Cough R05 ; Tobacco abuse counseling Z71.6 ; Chronic pain G89.29 and Type 2 diabetes mellitus without complication E11.9 [place] [address] [place] [id number] [place] [address] 47589- 9972 Feb, [place] [address] 95926- 9303 Feb, Type 2 diabetes mellitus without complication E11.9 ; Lumbago M54.5 ; Cervicalgia M54.2 ; Degenerative disc disease, lumbar M51.36 and Numbness and tingling of both legs 782.0 [facility] [address] [id number] Jan, Dental caries K02.9 and Encounter for dental examination Z01.[address] 17138- 5704 Jan, Type 2 diabetes mellitus without complication E11.[address] 15062- 0230 Jan, Type 2 diabetes mellitus without complication E11.9 ; Numbness and tingling of both legs 782.0 ; Fibromyalgia M79.7 ; Hyperlipidemia E78.5 ; Lumbago M54.5 ; Cervicalgia M54.2 ; Hypertension I10 ; CAD (coronary artery disease) I25.10 ; Tobacco abuse Z72.0 ; Tobacco abuse counseling Z71.6 and GERD (gastroesophageal reflux disease) K21.9 [place] [id number] [place] [address] 72634- 3919 Jan, [place] [address] 44227- 7118 Dec, [facility] [address] [place] [id number] [place] [address] [id number] Dec, Dental examination Z01.20 and Dental caries K02.9 [place] [address] 44349- 6794 Dec, Edema R60.9 ; Type 2 diabetes mellitus without complication E11.9 ; Hypertension I10 and Mouth pain K13.79 [place] [address] [place] [id number] [place] [address] 61282- 8536 Dec, Degenerative disc disease, lumbar M51.36 [place] [address] 30376- 1661 Dec, [place] [address] 41786- 5308 Nov, Insomnia, unspecified G47.00 [place] [address] 67374- 9346 Nov, Type 2 diabetes mellitus without complication E11.9 ; Lumbago M54.5 ; Degenerative disc disease, lumbar M51.36 ; Fibromyalgia M79.7 ; Coronary artery disease I25.10 ; Hyperlipidemia E78.5 ; Controlled substance agreement signed Z79.899 ; Dysuria R30.0 ; Insomnia, unspecified G47.00 ; GERD ( gastroesophageal reflux disease) K21.9 ; Hypertension 401.9 and prison 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 78361- 4672 Nov, [address] 62893- 2468 Oct, Degenerative disc disease, lumbar M51.36 ; Cervicalgia M54.2 ; Insomnia, unspecified G47.00 ; Decreased GFR R94.4 and GERD ( gastroesophageal reflux disease) K21.9 [place] [address] [place] [id number] [place] [address] 90866- 1891 Oct, Lumbago M54.5 [place] [address] 33033- 7929 Oct, Low back pain M54.5 [place] [address] 19896- 9531 Oct, [place] [address] 33169- 9874 Oct, Disorientation R41.0 [facility] [address] [place] [id number] [place] [address] 27117- 9808 Oct, Type 2 diabetes mellitus without complication E11.9 ; Disorientation R41.0 and Chest pain R07.9 [facility] [address] [place] [id number] [place] [address] 72903- 0275 Oct, [facility] [address] [place] [id number] [place] [address] 04334- 2627 Sep, Low back pain M54.5 [facility] [address] [place] [id number] [place] [address] 76633- 7839 Sep, Insomnia, unspecified G47.00 [facility] [address] [place] [id number] [place] [address] 02513- 9785 Aug, Degenerative disc disease, lumbar M51.36 ; Type 2 diabetes mellitus without complication E11.9 and Encounter for immunization Z23 [facility] [address] [place] [id number] [place] [address] 70898- 0773 Aug, [facility] [address] [place] [id number] [place] [address] 10982- 7228 Aug, [facility] [address] [place] [id number] [place] [address] 25575- 5646 Aug, [facility] [address] [place] [id number] [place] [address] 63553- 3182 Jul, [facility] [address] [place] [id number] [place] [address] 67036- 9100 Jun, [facility] [address] [place] [id number] [place] [address] 52341- 3908 Jun, Chest pain 786.50 and Lumbago 724.2 [facility] [address] [place] [id number] [place] [address] 23877- 7718 Jun, [facility] [address] [place] [id number] [place] [address] 65558- 3989 Jun, [facility] [address] [id number] Jun, Dental examination V72.2 [facility] [address] [place] [id number] [place] [address] 38107- 4560 Jun, [facility] [address] [place] [id number] [place] [address] 48418- 3925 May, Left shoulder pain 719.41 and Numbness and tingling of both legs 782.0 [facility] [address] 29383- 9552 May, Cough 786.2 ; Numbness and tingling of both legs 782.0 and Acute rhinitis 460 [facility] [address] [place] [id number] [place] [address] 44757- 6628 May, [facility] [address] [place] [id number] [place] [address] 76116- 6041 Apr, [facility] [address] [place] [id number] [place] [address] 03432- 8151 Apr, Bilateral lower extremity edema 782.3 ; Lumbago 724.2 and Insomnia 780.52 [facility] [address] [place] [id number] [place] [address] 89823- 3988 Apr, [facility] [address] [place] [id number] [place] [address] 22995- 7715 Apr, [facility] [address] [place] [id number] [place] [address] 76595- 0550 March, Seborrheic keratosis 702.19 and Skin lesion of face 709.9 [facility] [address] [place] [id number] [place] [address] 98199- 2173 March, [facility] [address] [place] [id number] [place] [address] 62523- 1217 March, [facility] [address] [place] [id number] [place] [address] 05272- 7047 March, [facility] [place] [facility] [address] [id number] [place] [address]- 4586 March, [facility] [place] [facility] [address] [id number] [place] [address]- 7843 14 Feb, 2015 [facility] [place] [facility] [address] [id number] [place] [address]- 0302 Feb, [facility] [place] [facility] [address] [id number] [place] [address]- 7933 25 Jan, 2015 [facility] [place] [facility] [address] [id number] [place] [address]- 6922 25 Jan, 2015 [facility] [place] [facility] [address] [id number] [place] [address]- 1747 16 Jan, 2015 [facility] [place] [facility] [address] [id number] [place] [address]- 1467 16 Jan, 2015 [facility] [place] [facility] [address] [id number] [place] [address]- 8673 16 Jan, 2015 [facility] [place] [facility] [address] [id number] [place] [address]- 2556 16 Jan, 2015 [facility] [place] [facility] [address] [id number] [place] [address]- 1252 13 Jan, 2015 [facility] [place] [facility] [address] [id number] [place] [address]- 2756 13 Jan, 2015 [facility] [place] [facility] [address] [id number] [place] [address]- 5056 13 Jan, 2015 [facility] [place] [facility] [address] [id number] [place] [address]- 0738 13 Jan, 2015 [facility] [place] [facility] [address] [id number] [place] [address]- 7630 10 Jan, 2015 [facility] [place] [facility] [address] [id number] [place] [address]- 4401 27 Dec, 2014 [facility] [place] [facility] [address] [id number] [place] [address]- 8894 Dec, [facility] [place] [facility] [address] [id number] [place] [address]- 3831 Dec, [facility] [place] [facility] [address] [id number] [place] [address]- 6543 Dec, [facility] [place] [facility] [address] [id number] [place] [address]- 9494 Dec, [facility] [place] [facility] [address] [id number] [place] [address]- 7404 Dec, [facility] [place] [facility] [address] [id number] [place] [address]- 0232 Nov, [facility] [place] [facility] [address] [id number] [place] [address]- 5039 Nov, [facility] [place] [facility] [address] [id number] [place] [address]- 4425 Nov, [facility] [place] [facility] [address] [id number] [place] [address]- 8331 Nov, [facility] [place] [facility] [address] [id number] [place] [address]- 1777 Nov, [facility] [place] [facility] [address] [id number] [place] [address]- 4695 Nov, [facility] [place] [facility] [address] [id number], [place] [address]- 7282 Nov, [facility] [place] [facility] [address] [id number], [place] [address]- 5849 Nov, [facility] [place] [facility] [address] [id number], [place] [address]- 6168 Nov, [facility] [place] [facility] [address] [id number], [place] [address] Nov, [facility] [place] [facility] [address] [id number] [place] [address] Nov, [facility] [place] [facility] [address] [id number] [place] [address] Oct, [facility] [place] [facility] [address] [id number] [place] [address] Oct, [facility] [place] [facility] [address] [id number] [place] [address] Oct, [facility] [place] [facility] [address] [id number] [place] [address] Oct, [facility] [place] [facility] [address] [id number] [place] [address] Oct, [facility] [place] [facility] [address] [id number] [place] [address] Oct, [facility] [place] [facility] [address] [id number] [place] [address] Oct, [facility] [place] [facility] [address] [id number] [place] [address] Oct, [facility] [place] [facility] [address] [id number] [place] [address] Oct, [facility] [place] [facility] [address] [id number] [place] [address] Oct, [facility] [place] [facility] [address] [id number] [place] [address] Sep, [facility] [place] [facility] [address] [id number] [place] [address] Sep, [facility] [place] [facility] [address] [id number] [place] [address] Sep, [facility] [place] [facility] [address] [id number] [place] [address] Sep, [facility] [place] [facility] [address] [id number] [place] [address] Sep, [facility] [place] [facility] [address] [id number] [place] [address] Sep, [facility] [place] [facility] [address] [id number] [place] [address] Sep, [facility] [place] [facility] [address] [id number] [place] [address] Sep, [facility] [place] [facility] [address] [id number] [place] [address] Sep, [facility] [place] [facility] [address] [id number] [place] [place] [address] Sep, [facility] [place] [facility] [address] [id number] [place] [address] Sep, [facility] [place] [facility] [address] [id number] [place] [address] Sep, [facility] [place] [facility] [address] [id number] [place] [address] Sep, [facility] [place] [facility] [address] [id number] [place] [address] 30 Aug, 2014 [facility] [place] [facility] [address] [id number] [place] [address] 30 Aug, 2014 [facility] [place] [facility] [address] [id number] [place] [address] 30 Aug, 2014 [facility] [place] [facility] [address] [id number] [place] [address] 30 Aug, 2014 [facility] [place] [facility] [address] [id number], [place] [address] 30 Aug, 2014 [facility] [place] [facility] [address] [id number] [place] [address] 30 Aug, 2014 [facility] [place] [facility] [address] [id number] [place] [address] Aug, [facility] [place] [facility] [address] [id number] [place] [address] 24 Aug, 2014 [facility] [place] [facility] [address] [id number] [place] [address] Aug, [facility] [place] [facility] [address] [id number] [place] [address] Aug, [facility] [place] [facility] [address] [id number] [place] [address] Aug, [facility] [place] [facility] [address] [id number] [place] [address] Aug, [facility] [place] [facility] [address] [id number] [place] [address] Aug, [facility] [place] [facility] [address] [id number] [place] [address] Aug, [facility] [place] [facility] [address] [id number] [place] [address] Aug, 2013 [facility] [place] [facility] [address] [id number] [place] [address] Aug, 2013 [facility] [place] [facility] [address] [id number] [place] [address] Aug, [facility] [place] [facility] [address] [id number] [place] [address] Aug, [facility] [place] [facility] [address] [id number] [place] [address] 30 Jul, 2013 [facility] [place] [facility] [address] [id number] [place] [address] 30 Sep, 2013 [facility] [place] [facility] [address] [id number], [place] [address] 24 Sep, 2013 [facility] [place] [facility] [address] [id number] [place] [address] 24 Jul, 2013 [facility] [place] [facility] [address] [id number], [place] [address] 23 Jul, 2013 [facility] [place] [facility] [address] [id number], [place] [address] 23 Jul, 2013 [facility] [place] [facility] [id number], [place] [address] 15 Jul, 2014 [facility] [id number], [place] [address] Jul, [facility] [id number], [place] [address] Jul, [facility] [id number], [place] [address] Jul, [facility] [id number], [place] [address] Jul, [facility] [id number] [place] [address] Jul, [facility] [id number], [place] [address] Jul, [facility] [id number], [place] [address] Jul, IMMUNIZATIONS No Known Immunizations SOCIAL HISTORY Never Assessed REASON FOR VISIT Diabetes fu -- beth johnson, last A1C on 02/24/2018, patient states she is back on chantix since yesterday PLAN OF CARE Activity Details Follow Up 3 Months, prn Reason:CHM/HTN Pending Test MRI : Cervical w/ Contrast VITAL SIGNS Height 60 in 2018-05-05 Weight 178.0 lbs 2018-05-05 Temperature 98.0 degrees Fahrenheit 2018-05-05 Heart Rate 92 bpm 2018-05-05 Respiratory Rate 22 2018-05-05 BMI 34.76 kg/m2 2018-05-05 Blood pressure systolic 136 mmHg 2018-05-05 Blood pressure diastolic 80 mmHg 2018-05-05 MEDICATIONS Medication Instructions Dosage Frequency Start Date End Date Duration Status Promethazine HCl 25 MG Rectal every 12 hrs 1 suppository as needed 12h 4 May, 2018 10 days Active Atorvastatin Calcium 40 mg Orally Once a day 1 tablet 24h 11 Mar, 2018 Active Tradjenta 5 MG TAKE ONE TABLET BY MOUTH ONCE DAILY Active Levemir FlexTouch 100 UNIT/ML INJECT 58 UNITS SUBCUTANEOUSLY TWICE DAILY Active Omeprazole 20 mg Orally Once a day TAKE ONE CAPSULE BY MOUTH ONCE DAILY 24h Active Percocet 10-325 MG Orally every 4- 6 hrs 1 tablet as needed Active Varenicline Tartrate 1 MG Orally Twice a day take 1/2 tab daily on days 1-3, then 1/2 tab twice daily on day 4-6, then 1 tablet twice daily 12h 18 Nov, 2017 30 day(s) Active Norvasc 5 mg Orally Once a day TAKE 1 TABLET BY MOUTH ONCE A DAY 24h Active Benadryl Active Diclofenac Sodium 75 MG TAKE ONE TABLET BY MOUTH TWICE DAILY WITH FOOD OR MILK Active Oxycodone HCl 10 mg Orally once a day 1 tablet as needed 24h Active Gabapentin 800 MG Orally 3 times a day 1 capsule 8h Active Aspirin 81 MG Orally Once a day 1 tablet 24h Active Humalog 100 UNIT/ML Active RESULTS No Results PROCEDURES Procedure Date Ordered Result [facility] INSTRUCTIONS MEDICATIONS ADMINISTERED No Known Medications MEDICAL (GENERAL) HISTORY Type Description Date Medical History hearing loss Medical History hypertension Medical History acute renal failure Medical History hyperlipidemia Medical History type II diabetes Medical History Arthritis Medical History degenerative disease lumbosacral spine Medical History chronic pain r/t DDD Medical History fibromyalgia Medical History ND-stent to LAD Surgical History cholecystectomy 1983 Surgical [...] illness, hyperglycemia 2017 Hospitalization History [facility] [place]- High BS (Pt left AMA) 01/05/2018 Hospitalization History [facility]- DKA and UTI. Discharged 01/14/2018 Hospitalization History [facility] [place]- Nausea and Vomiting, cannot urinate 01/18/2018
--- OUTSIDE RECORDS SUMMARY | 2018-07-31 02:40 | XMS REPORT ---
Author Author BURKSMARCELINO Rene [facility] Address [address] [place] [address] Care Team Providers Care Plumbing Instructor Name Role Phone MARCELINO BURKS Unavailable PROBLEMS Type Condition ICD9-CM Code PLY42-DA Code Onset Dates Condition Status SNOMED Code Problem Dental caries K02.9 Active 89576449 Problem Primary insomnia F51.01 Active 6330921 Problem Seasonal allergic rhinitis due to pollen J30.1 Active 70567825 Problem Type 2 diabetes mellitus with hyperglycemia E11.65 Active 740045897409724 Problem Hyperlipidemia E78.5 Active 21868602 Problem Cervicalgia M54.2 Active 86721395 Problem Alterations of sensations R20.9 Active 408534723 Problem Other obesity due to excess calories E66.09 Active 342307243 Problem Arthritis M19.90 Active 9587151 Problem Diabetic mononeuropathy associated with type 2 diabetes mellitus E11.41 Active 609644909 Problem Body mass index (BMI) of 33.0-33.9 in adult Z68.33 Active 213920450 Problem GERD (gastroesophageal reflux disease) K21.9 Active 125188298 Problem [facility]FP 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 Active 503729953 Problem Degenerative disc disease, lumbar M51.36 Active 17071295 Problem Fibromyalgia M79.7 Active 40199711 Problem Tobacco abuse Z72.0 Active 57314681 Problem Tobacco abuse counseling Z71.6 Active 279021567 Problem Essential hypertension I10 Active 15342197 Problem Chronic pain syndrome G89.4 Active 183058102 Problem CAD (coronary artery disease) I25.10 Active 57703947 Problem DM neuro manif type II E11.49 Active 34890321 ALLERGIES No Information ENCOUNTERS Encounter Location Date Diagnosis [facility] [address] [facility] [address] [facility] [id number] [address] Jul, [facility] [address] [id number], [place] [address] Jul, [facility] [id number] [place] [address] 77752- 8279 Apr, Type 2 diabetes mellitus with hyperglycemia E11.65 [place] [id number] [place] [address] 10333- 8763 Apr, Hyperlipidemia E78.5 ; Chronic pain syndrome G89.4 ; Cervicalgia M54.2 ; DM neuro manif type II E11.49 ; [facility]FP 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 ; Nausea alone R11.0 ; Essential hypertension I10 ; GERD ( gastroesophageal reflux disease) K21.9 ; CAD (coronary artery disease) I25.10 and Diabetic mononeuropathy associated with type 2 diabetes mellitus E11.41 [place] [address] 83545- 1595 Apr, [place] [address] 02181- 7366 March, Essential hypertension I10 ; DM neuro manif type II E11.49 and GERD (gastroesophageal reflux disease) K21.9 [place] [address] 43455- 7164 March, DM neuro manif type II E11.49 and GERD (gastroesophageal reflux disease) K21.9 [place] [id number] [place] [address] 78951- 0602 March, [place] [address] 15653- 5628 Feb, Tobacco abuse Z72.0 [place] [address] 76751- 5173 Feb, Tobacco abuse Z72.0 [place] [address] 66879- 6853 Feb, Hypokalemia E87.6 [place] [address] 83777- 9113 Feb, Hyperlipidemia E78.5 ; Essential hypertension I10 ; DM neuro manif type II E11.49 ; Fibromyalgia M79.7 ; Acute non-recurrent frontal sinusitis J01.10 ; Other obesity due to excess calories E66.09 and Body mass index (BMI) of 33.0-33.9 in adult Z68.33 [place] [address] 72346- 9130 05 Jan, 2018 Dysuria R30.0 [place] [address] 39520- 9856 05 Jan, 2018 Dysuria R30.0 [place] [address] 00885- 9971 02 Jan, 2018 Acute cystitis with hematuria N30.01 ; DM neuro manif type II E11.49 ; [facility]FP 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 ; Essential hypertension I10 and Hospital discharge follow-up Z09 [place] [address] 79626- 6173 27 Dec, 2017 Chest pain, unspecified type R07.9 ; Dehydration E86.0 and Anuria R34 [place] [address] 79977- 7865 Dec, [place] [address] 36440- 0481 Dec, Hyperglycemia R73.9 ; Dehydration E86.0 and Acute cystitis with hematuria N30.01 [facility] [address] 66310 -8871 Dec, [facility] [address] 66653 -8696 Dec, [facility] [address] [place] [address] 20666 -6020 Dec, [facility] [place] [address] 98528 -1179 16 Dec, 2017 Dysuria R30.0 ; Acute cystitis with hematuria N30.01 and Weakness R53.1 [place] [id number] [place] [address] 60752- 9071 Dec, [place] [id number] [place] [address] 00662- 2335 Nov, [place] [id number] [place] [address] 93467- 5009 Nov, [place] [address] 67615- 5260 Nov, Essential hypertension I10 ; DM neuro manif type II E11.49 ; 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 ; Tobacco abuse Z72.0 ; Hyperlipidemia E78.5 ; Non-adherence to medical treatment Z91.19 ; GERD (gastroesophageal reflux disease) K21.9 ; Degenerative disc disease, lumbar M51.36 ; Fibromyalgia M79.7 ; Chronic pain syndrome G89.4 ; Dental caries K02.9 and Seasonal allergic rhinitis due to pollen J30.1 [place] [id number] [place] [address] 64157- 6232 12 Nov, 2017 Alterations of sensations R20.[address] 11361- 2582 Sep, DM neuro manif type II E11.49 ; Hyperlipidemia E78.5 ; Degenerative disc disease, lumbar M51.36 and Chronic pain syndrome G89.4 [place] [id number] [place] [address] 62853- 0868 Sep, Arthritis M19.[address] 83003- 6947 07 Sep, 2017 Type 2 diabetes mellitus without complication E11.9 ; GERD ( gastroesophageal reflux disease) K21.9 ; Arthritis M19.90 and Chronic pain syndrome G89.4 [place] [id number] [place] [address] 43726- 1163 Sep, [place] [address] 92821- 0031 Aug, [facility] [id number] [place] [address] 97079- 6677 18 Aug, 2017 Type 2 diabetes mellitus without complication E11.9 [facility] [id number] [place] [address] 45697- 1023 17 Aug, 2017 [facility] [id number] [place] [address] 14835- 9700 Aug, [facility] [id number] [place] [address] 35807- 3840 Aug, [facility] [id number] [place] [address] 24555- 3286 26 Jul, 2017 [facility] [id number] [place] [address] 81853 -1932 22 Jul, 2017 Acute non-recurrent frontal sinusitis J01.10 [place] [id number] [place] [address] 72860- 8630 20 Jul, 2017 CAD (coronary artery disease) I25.10 and GERD ( gastroesophageal reflux disease) K21.9 [place] [id number] [place] [address] 74227- 1886 14 Jul, 2017 Localized swelling, mass and lump, neck R22.1 [place] [id number] [place] [address] 48863- 5789 06 Jul, 2017 [place] [id number] [place] [address] 07845- 9243 15 Jun, 2017 Type 2 diabetes mellitus without complication E11.9 ; Primary insomnia F51.01 ; Alterations of sensations R20.9 ; Hyperlipidemia E78.5 ; GERD (gastroesophageal reflux disease) K21.9 ; Essential hypertension I10 ; 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 ; Tobacco abuse Z72.0 ; Tobacco abuse counseling Z71.6 and CAD (coronary artery disease) I25.10 [place] [id number] [place] [address] 64540- 3021 May, [facility] [id number] [place] [address] 30744- 3256 May, Type 2 diabetes mellitus without complication E11.9 [place] [id number] [place] [address] 77177- 6979 May, [facility] [id number] [place] [address] 05892- 6154 March, [facility] [address] 28558- 6826 Feb, [facility] [id number] [place] [address] 94653 -0478 Jan, Acute suppurative otitis media of left ear with spontaneous rupture of tympanic membrane, recurrence not specified H66.012 [place] [id number] [place] [address] 50892- 0286 Dec, Type 2 diabetes mellitus without complication E11.9 ; Lumbago M54.5 ; Cervicalgia M54.2 ; Hyperlipidemia E78.5 ; GERD ( gastroesophageal reflux disease) K21.9 ; Chronic pain syndrome G89.4 ; Dysuria R30.0 and Essential hypertension I10 [place] [id number] [place] [address] 02266- 7448 Oct, [place] [id number] [place] [address] 59655- 8901 Sep, Diabetic mononeuropathy associated with type 2 diabetes mellitus E11.41 and Coughing R05 [place] [id number] [place] [address] 86249- 0556 Sep, Diabetic mononeuropathy associated with type 2 diabetes mellitus E11.41 and Coughing R05 [place] [id number] [place] [address] 40799- 1369 Sep, Onychomycosis B35.1 ; Neuritis M79.2 and Type 2 diabetes mellitus without complication E11.9 [place] [id number] [place] [address] 50853- 7700 14 Sep, 2016 [place] [id number] [place] [address] 11361- 6943 03 Sep, 2016 Cough R05 ; Seasonal allergic rhinitis due to pollen J30.1 and Acute upper respiratory infection, unspecified J06.9 [place] [id number] [place] [address] 01466- 7371 02 Sep, 2016 [place] [address] 46525- 7339 Aug, [place] [id number] [place] [address] 51422- 6074 13 Jul, 2016 Type 2 diabetes mellitus without complication E11.9 ; Chronic pain G89.29 ; Essential hypertension I10 and Acute non-recurrent maxillary sinusitis J01.00 [place] [id number] [place] [address] 08326- 2272 Jul, Chronic pain syndrome G89.4 ; Lumbago M54.5 and Cervicalgia M54.2 [place] [id number] [place] [address] 15723- 3558 Jul, [place] [id number] [place] [address] 83920- 8314 Jul, [place] [id number] [place] [address] 55316- 9803 Jun, Onychomycosis B35.1 ; Onychocryptosis L60.0 and DM neuro manif type II E11.49 [place] [id number] [place] [address] 88298- 4760 04 Jun, 2016 Type 2 diabetes mellitus without complication E11.9 ; Pain in unspecified hip M25.559 ; Other chronic pain G89.29 ; Lumbago M54.5 ; Chronic pain G89.29 ; Insomnia, unspecified G47.00 ; GERD (gastroesophageal reflux disease) K21.9 and Dental caries K02.9 [place] [id number] [place] [address] 22248- 7676 Jun, Type 2 diabetes mellitus without complication E11.9 ; Lumbago M54.5 ; Chronic pain G89.29 ; Insomnia, unspecified G47.00 ; GERD ( gastroesophageal reflux disease) K21.9 ; Dental caries K02.9 ; Pain in unspecified hip M25.559 and Other chronic pain G89.29 [place] [id number] [place] [address] 58952- 0851 May, [place] [address] 22817- 1880 May, Type 2 diabetes mellitus without complication E11.9 ; Essential hypertension I10 ; Chronic pain syndrome G89.4 ; Other seasonal allergic rhinitis J30.2 and Insomnia, unspecified G47.00 [place] [id number] [place] [address] 36769- 0937 Apr, [address] 88911- 2928 Apr, Hypertension I10 and Chronic pain G89.29 [place] [id number] [place] [address] 24020- 8729 March, Onychomycosis B35.1 ; Onychocryptosis L60.0 and Type 2 diabetes mellitus without complication E11.9 [place] [id number] [place] [address] 81112- 1127 March, Type 2 diabetes mellitus without complication E11.9 ; Essential hypertension I10 ; Alterations of sensations R20.9 ; Chronic pain syndrome G89.4 ; Tobacco abuse Z72.0 and Tobacco abuse counseling Z71.6 [place] [id number] [place] [address] 28808- 4529 Feb, Cough R05 ; Type 2 diabetes mellitus without complication E11.9 ; Tobacco abuse counseling Z71.6 and Chronic pain G89.29 [place] [id number] [place] [address] 10822- 5201 Feb, [address] [place] [address]- 7122 Feb, Type 2 diabetes mellitus without complication E11.9 ; Lumbago M54.5 ; Cervicalgia M54.2 ; Degenerative disc disease, lumbar M51.36 and Numbness and tingling of both legs 782.0 [facility] [id number] [place] [address] [id number] Jan, Dental caries K02.9 and Encounter for dental examination Z01.20 [facility] [address] 36120- 0256 Jan, Type 2 diabetes mellitus without complication E11.9 [place] [address] 88219- 5191 Jan, Type 2 diabetes mellitus without complication E11.9 ; Numbness and tingling of both legs 782.0 ; Fibromyalgia M79.7 ; Hyperlipidemia E78.5 ; Lumbago M54.5 ; Cervicalgia M54.2 ; Hypertension I10 ; CAD (coronary artery disease) I25.10 ; Tobacco abuse Z72.0 ; Tobacco abuse counseling Z71.6 and GERD (gastroesophageal reflux disease) K21.9 [place] [address] 26516- 6165 Jan, [facility] [id number] [place] [address] 71329- 0134 Dec, [facility] [id number] [place] [address] [id number] Dec, Dental examination Z01.20 and Dental caries K02.9 [place] [id number] [place] [address] 25343- 4722 Dec, Edema R60.9 ; Type 2 diabetes mellitus without complication E11.9 ; Hypertension I10 and Mouth pain K13.79 [facility] [id number] [place] [address] 57150- 1307 Dec, Degenerative disc disease, lumbar M51.36 [place] [address] [place] [address]- 9125 Dec, [place] [address] 96416- 6858 Nov, Insomnia, unspecified G47.00 [place] [address] 82800- 4597 Nov, Type 2 diabetes mellitus without complication E11.9 ; Lumbago M54.5 ; Degenerative disc disease, lumbar M51.36 ; Fibromyalgia M79.7 ; Coronary artery disease I25.10 ; Hyperlipidemia E78.5 ; Controlled substance agreement signed Z79.899 ; Dysuria R30.0 ; Insomnia, unspecified G47.00 ; GERD ( gastroesophageal reflux disease) K21.9 ; Hypertension 401.9 and [facility]FP 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 [place] [address] 01993- 2045 Nov, [place] [address] 26253- 7811 Oct, Degenerative disc disease, lumbar M51.36 ; Cervicalgia M54.2 ; Insomnia, unspecified G47.00 ; Decreased GFR R94.4 and GERD ( gastroesophageal reflux disease) K21.9 [place] [id number] [place] [address] 02522- 1349 Oct, Lumbago M54.5 [place] [address] 00242- 4589 Oct, Low back pain M54.5 [place] [address] 24223- 2224 Oct, [place] [address] 26938- 5982 Oct, Disorientation R41.0 [place] [address] 41393- 3436 Oct, Type 2 diabetes mellitus without complication E11.9 ; Disorientation R41.0 and Chest pain R07.9 [facility] [id number] [place] [address] 79152- 6817 Oct, [facility] [address] 41189- 6854 Sep, Low back pain M54.5 [facility] [address] 72917- 7704 Sep, Insomnia, unspecified G47.00 [facility] [address] 71930- 1928 Aug, Degenerative disc disease, lumbar M51.36 ; Type 2 diabetes mellitus without complication E11.9 and Encounter for immunization Z23 [facility] [id number] [place] [address] 37052- 0609 Aug, [facility] [address] 64939- 5056 Aug, [facility] [id number] [place] [address] 26349- 0984 Aug, [facility] [id number] [place] [address] 95629- 9995 Jul, [facility] [id number] [place] [address] 62532- 0460 Jun, [facility] [id number] [place] [address] 63945- 1362 Jun, Chest pain 786.50 and Lumbago 724.2 [facility] [id number] [place] [address] 82908- 6680 Jun, [facility] [address] 22473- 6836 Jun, [facility] [id number] [place] [address] [id number] Jun, Dental examination V72.2 [facility] [id number] [place] [address] 15782- 6927 Jun, [facility] [address], [place] [address]- 6835 May, Left shoulder pain 719.41 and Numbness and tingling of both legs 782.0 [facility] [id number] [place] [address] 21587- 2166 May, Cough 786.2 ; Numbness and tingling of both legs 782.0 and Acute rhinitis 460 [facility] [id number] [place] [address] 99429- 3876 May, [facility] [id number] [place] [address] 88226- 7473 Apr, [facility] [id number] [place] [address] 42870- 3429 Apr, Bilateral lower extremity edema 782.3 ; Lumbago 724.2 and Insomnia 780.52 [facility] [id number] [place] [address] 50131- 6183 Apr, [facility] [id number] [place] [address] 24419- 9235 Apr, [facility] [id number] [place] [address] 66127- 8367 March, Seborrheic keratosis 702.19 and Skin lesion of face 709.9 [facility] [id number] [address]- 9790 March, [facility] [id number] [place] [address] 70337- 8855 March, [facility] [id number] [place] [address] 959605- 9766 March, [facility] [address], [place] [address]- 3896 March, [facility] [id number] [place] [address] [id number]- 5146 Feb, [facility] [place] [facility] [address] [id number] [place] [address]- 1720 13 Feb, 2015 [facility] [place] [facility] [address] [id number] [place] [address]- 0383 25 Jan, 2015 [facility] [place] [facility] [address] [id number] [place] [address]- 4754 25 Jan, 2015 [facility] [place] [facility] [address] [id number] [place] [address]- 2553 16 Jan, 2015 [facility] [place] [facility] [address] [id number] [place] [address]- 0984 16 Jan, 2015 [facility] [place] [facility] [address] [id number] [place] [address]- 9359 16 Jan, 2015 [facility] [place] [facility] [address] [id number] [place] [address]- 9521 16 Jan, 2015 [facility] [place] [facility] [address] [id number] [place] [address]- 0650 13 Jan, 2015 [facility] [place] [facility] [address] [id number] [place] [address]- 2718 13 Jan, 2015 [facility] [place] [facility] [address] [id number] [place] [address]- 4918 13 Jan, 2015 [facility] [place] [facility] [address] [id number] [place] [address]- 4454 13 Jan, 2015 [facility] [place] [facility] [address] [id number], [place] [address]- 1939 10 Jan, 2015 [facility] [place] [facility] [address] [id number] [place] [address]- 1128 27 Dec, 2014 [facility] [place] [facility] [address] [id number] [place] [address]- 4633 Dec, [facility] [place] [facility] [address] [id number] [place] [address]- 4017 26 Dec, 2014 [facility] [place] [facility] [address] [id number] [place] [address]- 1046 Dec, [facility] [address] [id number] [place] [address]- 0502 Dec, [facility] [place] [facility] [address] [id number] [place] [address]- 1121 Dec, [facility] [address] [id number] [place] [address]- 1495 Nov, [facility] [place] [facility] [address] [id number] [place] [address]- 4467 15 Nov, 2014 [facility] [address] [id number] [place] [address]- 9985 Nov, [facility] [place] [facility] [address] [id number] [place] [address]- 0418 Nov, [facility] [address] [id number] [place] [address]- 5646 Nov, [facility] [address] [id number] [place] [address]- 0189 Nov, [facility] [place] [facility] [address] [id number] [place] [address]- 8184 Nov, [facility] [address] [id number] [place] [address]- 8091 Nov, [facility] [place] [facility] [address] [id number] [place] [address]- 6837 Nov, [facility] [place] [facility] [address] [id number] [place] [address]- 6851 Nov, [facility] [place] [facility] [address] [id number] [place] [address]- 8402 Nov, [facility] [place] [facility] [address] [id number] [place] [address]- 2626 Oct, [facility] [place] [facility] [address] [id number] [place] 1375 Oct, [facility] [place] [facility] [address] [id number] [place] [address]- 6621 Oct, [facility] [place] [facility] [address] [id number] [place] [address]- 4351 Oct, [facility] [place] [facility] [address] [id number] [place] [address]- 9111 Oct, [facility] [place] [facility] [address] [id number] [place] [address]- 7010 Oct, [facility] [place] [facility] [address] [id number] [place] [address]- 7340 Oct, [facility] [place] [facility] [address] [id number] [place] [address] Oct, [facility] [place] [facility] [address] [id number] [place] [address] Oct, [facility] [place] [facility] [address] [id number] [place] [address] Oct, [facility] [place] [facility] [address] [id number] [place] [address] Sep, [facility] [place] [facility] [address] [id number] [place] [address] Sep, [facility] [place] [facility] [address] [id number], [place] [address] Sep, [facility] [place] [facility] [address] [id number], [place] [address] Sep, [facility] [place] [facility] [address] [id number] [place] [address] Sep, [facility] [place] [facility] [address] [id number] [place] [address] Sep, [facility] [place] [facility] [address] [id number], [place] [address] Sep, [facility] [place] [facility] [address] [id number], [place] [address] Sep, [facility] [place] [facility] [address] [id number] [place] [address] Sep, [facility] [place] [facility] [address] [id number], [place] [address] 17 Sep, 2014 [facility] [place] [facility] [address] [facility] [id number] [place] [address] Sep, [facility] [place] [facility] [address] [id number] [place] [address] Sep, [facility] [place] [facility] [address] [id number] [place] [address] Sep, [facility] [place] [facility] [address] [id number] [place] [address] Aug, [facility] [place] [facility] [address] [id number], [place] [address] Aug, [facility] [place] [facility] [address] [id number] [place] [address] Aug, [facility] [place] [facility] [address] [facility] [id number] [place] [address] 30 Aug, 2014 [facility] [place] [facility] [address] [facility] [address] [facility] [id number], [place] [address] Aug, [facility] [place] [facility] [address] [id number], [place] [address] 30 Aug, 2014 [facility] [place] [facility] [address] [id number], [place] [address] Aug, [facility] [place] [facility] [address] [id number], [place] [address] 24 Aug, 2014 [facility] [place] [facility] [address] [facility] [id number], [place] [address] Aug, [facility] [place] [facility] [address] [facility] [id number], [place] [address] Aug, [facility] [place] [facility] [address] [id number] [place] [address] Aug, [facility] [place] [facility] [address] [id number] [place] [address] Aug, [facility] [place] [facility] [address] [id number] [place] [address] Aug, 2013 [facility] [place] [facility] [address] [id number] [place] [address] Aug, 2013 [facility] [place] [facility] [address] [id number] [place] [address] Aug, [facility] [place] [facility] [address] [id number] [place] [address] Aug, [facility] [place] [facility] [address] [id number] [place] [address] Aug, [facility] [place] [facility] [address] [id number] [place] [address] Aug, [facility] [place] [facility] [address] [id number] [place] [address] 30 Sep, 2013 [facility] [place] [facility] [address] [id number] [place] [address] 30 Sep, 2013 [facility] [place] [facility] [address] [id number] [place] [address] 24 Sep, 2013 [facility] [place] [facility] [address] [id number] [place] [address] 24 Sep, 2013 [facility] [place] [facility] [address] [id number] [place] [address] 23 Sep, 2013 [facility] [place] [facility] [address] [id number] [place] [address] 23 Sep, 2013 [facility] [place] [facility] [address] [id number] [place] [address] 15 Sep, 2013 [facility] [place] [facility] [address] [id number] [place] [address] 15 Jul, 2014 [facility] [address] [facility] [id number], [place] [address] 15 Jul, 2014 [facility] [address] [id number], [place] [address] 15 Jul, 2014 [facility] [address] [id number], [place] [address] Jul, [facility] [address] [id number], [place] [address] Jul, [facility] [address] [id number], [place] [address] Jul, [facility] [address] [id number], [place] [address] Jul, IMMUNIZATIONS No Known Immunizations SOCIAL HISTORY Never Assessed REASON FOR VISIT Repository Medication PLAN OF CARE VITAL SIGNS MEDICATIONS Medication Instructions Dosage Frequency Start Date End Date Duration Status Gabapentin 800 MG Orally 3 times a day 1 capsule 8h 30 Active RESULTS No Results PROCEDURES No Known procedures INSTRUCTIONS MEDICATIONS ADMINISTERED No Known Medications MEDICAL (GENERAL) HISTORY Type Description Date Medical History hearing loss Medical History hypertension Medical History acute renal failure Medical History hyperlipidemia Medical History type II diabetes Medical History Arthritis Medical History degenerative disease lumbosacral spine Medical History chronic pain r/t DDD Medical History fibromyalgia Medical History [facility] Surgical History cholecystectomy 1983 Surgical [...] Influenza illness, hyperglycemia 2017 Hospitalization History ED [place]- High BS (Pt left AMA) 01/05/2018 Hospitalization History [facility]- DKA and UTI. Discharged 01/14/2018 Hospitalization History ED [place]- Nausea and Vomiting, cannot urinate 01/18/2018
--- OUTSIDE RECORDS SUMMARY | 2018-07-31 02:41 | XMS REPORT ---
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 Name Role Phone MARCELINO BURKS Unavailable PROBLEMS Type Condition ICD9-CM Code KCD04-SD Code Onset Dates Condition Status SNOMED Code Problem Dental caries K02.9 Active 20278094 Problem Primary insomnia F51.01 Active 1743268 Problem Seasonal allergic rhinitis due to pollen J30.1 Active 62028628 Problem Type 2 diabetes mellitus with hyperglycemia E11.65 Active 225397082060201 Problem Hyperlipidemia E78.5 Active 32452089 Problem Cervicalgia M54.2 Active 54264915 Problem Alterations of sensations R20.9 Active 948381552 Problem Other obesity due to excess calories E66.09 Active 458443467 Problem Arthritis M19.90 Active 8248180 Problem Diabetic mononeuropathy associated with type 2 diabetes mellitus E11.41 Active 049124571 Problem Body mass index (BMI) of 33.0-33.9 in adult Z68.33 Active 775930927 Problem GERD (gastroesophageal reflux disease) K21.9 Active 531690469 Problem skilled nursing 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 Active 849577896 Problem Degenerative disc disease, lumbar M51.36 Active 41092260 Problem Fibromyalgia M79.7 Active 53871319 Problem Tobacco abuse Z72.0 Active 51229478 Problem Tobacco abuse counseling Z71.6 Active 142168820 Problem Essential hypertension I10 Active 83085843 Problem Chronic pain syndrome G89.4 Active 794327343 Problem CAD (coronary artery disease) I25.10 Active 19207567 Problem DM neuro manif type II E11.49 Active 17652975 ALLERGIES No Information ENCOUNTERS Encounter Location Date Diagnosis [facility] [address] [facility] [id number] [address] 07 Jul, 2018 [facility] [address] [id number] [address] Apr, Type 2 diabetes mellitus with hyperglycemia E11.65 [place] [address] 45779- 2628 Apr, Hyperlipidemia E78.5 ; Chronic pain syndrome G89.4 ; Cervicalgia M54.2 ; DM neuro manif type II E11.49 ; 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 ; Nausea alone R11.0 ; Essential hypertension I10 ; GERD ( gastroesophageal reflux disease) K21.9 ; CAD (coronary artery disease) I25.10 and Diabetic mononeuropathy associated with type 2 diabetes mellitus E11.41 [place] [address] 70772- 0887 Apr, [place] [address] 27443- 6589 March, Essential hypertension I10 ; DM neuro manif type II E11.49 and GERD (gastroesophageal reflux disease) K21.9 [place] [address] 22291- 6625 March, DM neuro manif type II E11.49 and GERD (gastroesophageal reflux disease) K21.9 [place] [address] 99384- 3026 March, [place] [address] 74158- 6425 Feb, Tobacco abuse Z72.0 [place] [address] 74060- 9938 Feb, Tobacco abuse Z72.0 [place] [address] 06429- 6841 Feb, Hypokalemia E87.6 [place] [address] 88186- 7152 Feb, Hyperlipidemia E78.5 ; Essential hypertension I10 ; DM neuro manif type II E11.49 ; Fibromyalgia M79.7 ; Acute non-recurrent frontal sinusitis J01.10 ; Other obesity due to excess calories E66.09 and Body mass index (BMI) of 33.0-33.9 in adult Z68.33 [place] [address] 57453- 4616 05 Jan, 2018 Dysuria R30.0 [place] [address] 94161- 9187 05 Jan, 2018 Dysuria R30.0 [place] [address] 22351- 6744 02 Jan, 2018 Acute cystitis with hematuria N30.01 ; DM neuro manif type II E11.49 ; roasterman 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 ; Essential hypertension I10 and Hospital discharge follow-up Z09 [place] [address] 84247- 7999 27 Dec, 2017 Chest pain, unspecified type R07.9 ; Dehydration E86.0 and Anuria R34 [place] [address] 20108- 2039 Dec, [place] [address] 23157- 3342 Dec, Hyperglycemia R73.9 ; Dehydration E86.0 and Acute cystitis with hematuria N30.01 [facility] [address] [place] [address] 31109 -5924 Dec, [facility] [address] [place] [address] 17664 -4113 Dec, [facility] [address] [place] [address] 22204 -5206 Dec, [facility] [address] [place] [address] 94109 -7518 16 Dec, 2017 Dysuria R30.0 ; Acute cystitis with hematuria N30.01 and Weakness R53.[address] 51468- 0930 Dec, [place] [address] [id number] [place] [address] 67450- 7795 Nov, [place] [address] 88290- 9798 Nov, [place] [address] 93751- 4001 Nov, Essential hypertension I10 ; DM neuro manif type II E11.49 ; roasterman 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 ; Tobacco abuse Z72.0 ; Hyperlipidemia E78.5 ; Non-adherence to medical treatment Z91.19 ; GERD (gastroesophageal reflux disease) K21.9 ; Degenerative disc disease, lumbar M51.36 ; Fibromyalgia M79.7 ; Chronic pain syndrome G89.4 ; Dental caries K02.9 and Seasonal allergic rhinitis due to pollen J30.[address] 91862- 1726 Nov, Alterations of sensations R20.9 [place] [address] 00450- 4907 Sep, DM neuro manif type II E11.49 ; Hyperlipidemia E78.5 ; Degenerative disc disease, lumbar M51.36 and Chronic pain syndrome G89.4 [place] [address] [id number] [place] [address] 14479- 8118 Sep, Arthritis M19.90 [place] [address] 28618- 3642 Sep, Type 2 diabetes mellitus without complication E11.9 ; GERD ( gastroesophageal reflux disease) K21.9 ; Arthritis M19.90 and Chronic pain syndrome G89.4 [place] [address] 69291- 1347 Sep, [place] [address] [id number] [place] [address] 30894- 6837 Aug, [place] [address] 26063- 3698 18 Aug, 2017 Type 2 diabetes mellitus without complication E11.9 [facility] [address] [address] 359[address] 17 Aug, 2017 [facility] [id number] [place] [address] 81401- 6839 16 Aug, 2017 [facility] [id number] [place] [address] 17361- 4150 Aug, [facility] [id number] [place] [address] 87046- 7771 26 Jul, 2017 [facility] [id number] [place] [address] 97923 -2766 22 Jul, 2017 Acute non-recurrent frontal sinusitis J01.10 [place] [address] [id number] [place] [address] 24797- 3120 20 Jul, 2017 CAD (coronary artery disease) I25.10 and GERD ( gastroesophageal reflux disease) K21.9 [place] [id number] [place] [address] 59297- 0338 14 Jul, 2017 Localized swelling, mass and lump, neck R22.1 [place] [address] [id number] [place] [address] 58271- 6269 06 Jul, 2017 [place] [address] [id number] [place] [address] 10801- 9645 Jun, Type 2 diabetes mellitus without complication E11.9 ; Primary insomnia F51.01 ; Alterations of sensations R20.9 ; Hyperlipidemia E78.5 ; GERD (gastroesophageal reflux disease) K21.9 ; Essential hypertension I10 ; roasterman 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 ; Tobacco abuse Z72.0 ; Tobacco abuse counseling Z71.6 and CAD (coronary artery disease) I25.10 [facility] [id number] [place] [address] 21993- 0175 May, [place] [address] [id number] [place] [address] 63708- 3898 May, Type 2 diabetes mellitus without complication E11.9 [facility] [id number] [place] [address] 49500- 4909 May, [facility] [id number] [place] [address] 54644- 9876 March, [facility] [id number] [place] [address] 58597- 4519 Feb, [facility] [id number] [place] [address] 51470 -6157 Jan, Acute suppurative otitis media of left ear with spontaneous rupture of tympanic membrane, recurrence not specified H66.012 [place] [id number] [place] [address] 57269- 9646 Dec, Type 2 diabetes mellitus without complication E11.9 ; Lumbago M54.5 ; Cervicalgia M54.2 ; Hyperlipidemia E78.5 ; GERD ( gastroesophageal reflux disease) K21.9 ; Chronic pain syndrome G89.4 ; Dysuria R30.0 and Essential hypertension I10 [place] [address] [id number] [place] [address] 24811- 8159 Oct, [place] [address] [id number] [place] [address] 91453- 0021 30 Sep, 2016 Diabetic mononeuropathy associated with type 2 diabetes mellitus E11.41 and Coughing R05 [place] [id number] [place] [address] 36987- 4110 Sep, Diabetic mononeuropathy associated with type 2 diabetes mellitus E11.41 and Coughing R05 [facility] [id number] [place] [address] 36840- 5307 Sep, Onychomycosis B35.1 ; Neuritis M79.2 and Type 2 diabetes mellitus without complication E11.9 [facility] [address] [id number] [place] [address] 94911- 9654 Sep, [facility] [id number] [place] [address] 71360- 2370 Sep, Cough R05 ; Seasonal allergic rhinitis due to pollen J30.1 and Acute upper respiratory infection, unspecified J06.9 [place] [address] [address] [id number] [place] [address] 54628- 6356 Sep, [place] [address] 08074- 9441 Aug, [place] [address] 68163- 8957 Jul, Type 2 diabetes mellitus without complication E11.9 ; Chronic pain G89.29 ; Essential hypertension I10 and Acute non-recurrent maxillary sinusitis J01.00 [place] [address] 67518- 1587 Jul, Chronic pain syndrome G89.4 ; Lumbago M54.5 and Cervicalgia M54.2 [place] [address] 71281- 6700 Jul, [place] [address] 13857- 4407 Jul, [place] [address] 63125- 0938 Jun, Onychomycosis B35.1 ; Onychocryptosis L60.0 and DM neuro manif type II E11.49 [place] [id number] [place] [address] 11392- 3538 Jun, Type 2 diabetes mellitus without complication E11.9 ; Pain in unspecified hip M25.559 ; Other chronic pain G89.29 ; Lumbago M54.5 ; Chronic pain G89.29 ; Insomnia, unspecified G47.00 ; GERD (gastroesophageal reflux disease) K21.9 and Dental caries K02.9 [place] [id number] [place] [address] 21513- 7084 Jun, Type 2 diabetes mellitus without complication E11.9 ; Lumbago M54.5 ; Chronic pain G89.29 ; Insomnia, unspecified G47.00 ; GERD ( gastroesophageal reflux disease) K21.9 ; Dental caries K02.9 ; Pain in unspecified hip M25.559 and Other chronic pain G89.29 [place] [address] 42658- 1137 May, [place] [address] 49447- 1447 May, Type 2 diabetes mellitus without complication E11.9 ; Essential hypertension I10 ; Chronic pain syndrome G89.4 ; Other seasonal allergic rhinitis J30.2 and Insomnia, unspecified G47.00 [place] [address] 11619- 2434 Apr, [address] 63190- 4949 Apr, Hypertension I10 and Chronic pain G89.[address] 37682- 2183 March, Onychomycosis B35.1 ; Onychocryptosis L60.0 and Type 2 diabetes mellitus without complication E11.9 [place] [address] 51118- 8632 March, Type 2 diabetes mellitus without complication E11.9 ; Essential hypertension I10 ; Alterations of sensations R20.9 ; Chronic pain syndrome G89.4 ; Tobacco abuse Z72.0 and Tobacco abuse counseling Z71.[address] 24752- 3671 Feb, Cough R05 ; Tobacco abuse counseling Z71.6 ; Chronic pain G89.29 and Type 2 diabetes mellitus without complication E11.9 [place] [address] 99083- 8876 Feb, [place] [address] 70705- 3960 Feb, Type 2 diabetes mellitus without complication E11.9 ; Lumbago M54.5 ; Cervicalgia M54.2 ; Degenerative disc disease, lumbar M51.36 and Numbness and tingling of both legs 782.0 [facility] [id number] [place] [address] [id number] Jan, Dental caries K02.9 and Encounter for dental examination Z01.[address] 47287- 3272 Jan, Type 2 diabetes mellitus without complication E11.9 [place] [address] 20621- 1714 Jan, Type 2 diabetes mellitus without complication E11.9 ; Numbness and tingling of both legs 782.0 ; Fibromyalgia M79.7 ; Hyperlipidemia E78.5 ; Lumbago M54.5 ; Cervicalgia M54.2 ; Hypertension I10 ; CAD (coronary artery disease) I25.10 ; Tobacco abuse Z72.0 ; Tobacco abuse counseling Z71.6 and GERD (gastroesophageal reflux disease) K21.[address] 58168- 5112 Jan, [address] 26891- 3386 Dec, [facility] [id number] [place] [address] [id number] Dec, Dental examination Z01.20 and Dental caries K02.[address] 02065- 8196 Dec, Edema R60.9 ; Type 2 diabetes mellitus without complication E11.9 ; Hypertension I10 and Mouth pain K13.[address] 46422- 5516 Dec, Degenerative disc disease, lumbar M51.[address] 22079- 4851 Dec, [address] [place] [address]- 5734 Nov, Insomnia, unspecified G47.00 [place] [address] 40537- 8695 Nov, Type 2 diabetes mellitus without complication E11.9 ; Lumbago M54.5 ; Degenerative disc disease, lumbar M51.36 ; Fibromyalgia M79.7 ; Coronary artery disease I25.10 ; Hyperlipidemia E78.5 ; Controlled substance agreement signed Z79.899 ; Dysuria R30.0 ; Insomnia, unspecified G47.00 ; GERD ( gastroesophageal reflux disease) K21.9 ; Hypertension 401.9 and roasterman 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 [place] [address] 21253- 9191 Nov, [place] [address] 60236- 7188 Oct, Degenerative disc disease, lumbar M51.36 ; Cervicalgia M54.2 ; Insomnia, unspecified G47.00 ; Decreased GFR R94.4 and GERD ( gastroesophageal reflux disease) K21.9 [place] [address] 83891- 9962 Oct, Lumbago M54.5 [place] [address] 67642- 5576 Oct, Low back pain M54.5 [place] [address] 73293- 4761 Oct, [place] [address] 65842- 2882 Oct, Disorientation R41.0 [place] [address] 12644- 6045 Oct, Type 2 diabetes mellitus without complication E11.9 ; Disorientation R41.0 and Chest pain R07.9 [place] [address] 96300- 3801 Oct, [facility] [id number] [place] [address] 00753- 9457 Sep, Low back pain M54.5 [facility] [id number] [place] [address] 68644- 8542 Sep, Insomnia, unspecified G47.00 [facility] [id number] [place] [address] 18466- 9042 Aug, Degenerative disc disease, lumbar M51.36 ; Type 2 diabetes mellitus without complication E11.9 and Encounter for immunization Z23 [facility] [id number] [place] [address] 34096- 5716 Aug, [facility] [id number] [place] [address] 86441- 2613 Aug, [facility] [id number] [place] [address] 16150- 9881 Aug, [facility] [id number] [place] [address] 88971- 2695 Jul, [facility] [id number] [place] [address] 92402- 5192 Jun, [facility] [id number] [place] [address] 04724- 9998 Jun, Chest pain 786.50 and Lumbago 724.2 [facility] [id number] [place] [address] 29437- 7253 Jun, [facility] [id number] [place] [address] 41269- 2866 Jun, [facility] [id number] [place] [address] [id number] Jun, Dental examination V72.2 [facility] [id number] [place] [address] 70326- 3648 Jun, [facility] [id number] [place] [address] 52824- 3722 May, Left shoulder pain 719.41 and Numbness and tingling of both legs 782.0 [facility] [id number] [place] [address] 76566- 9166 May, Cough 786.2 ; Numbness and tingling of both legs 782.0 and Acute rhinitis 460 [facility] [id number] [place] [address] 94934- 5808 May, [facility] [id number] [place] [address] 30405- 9028 Apr, [facility] [id number] [place] [address] 56587- 9288 Apr, Bilateral lower extremity edema 782.3 ; Lumbago 724.2 and Insomnia 780.52 [facility] [id number] [place] [address] 98260- 6142 Apr, [facility] [id number] [place] [address] 13079- 0072 Apr, [facility] [id number] [place] [address] 23906- 9375 March, Seborrheic keratosis 702.19 and Skin lesion of face 709.9 [facility] [id number] [place] [address] 17627- 2793 March, [facility] [id number] [place] [address] 80975- 0458 March, [facility] [id number] [place] [address] 94405- 9064 March, [facility] [id number] [place] [address] 768023- 4233 March, [facility] [id number] [place] [address] 48929- 6933 Feb, [facility] [id number] [place] [address] 12952- 5673 Feb, [facility] [place] [facility] [address] [id number] [place] [address]- 0226 25 Jan, 2015 [facility] [place] [facility] [address] [id number] [place] [address]- 8932 25 Jan, 2015 [facility] [place] [facility] [address] [id number] [place] [address]- 0806 16 Jan, 2015 [facility] [place] [facility] [address] [id number] [place] [address]- 4264 16 Jan, 2015 [facility] [place] [facility] [address] [id number] [place] [address]- 0974 16 Jan, 2015 [facility] [place] [facility] [address] [id number] [place] [address]- 4240 16 Jan, 2015 [facility] [place] [facility] [address] [id number] [place] [address]- 9848 Jan, [facility] [place] [facility] [address] [id number] [place] [address]- 0656 13 Jan, 2015 [facility] [place] [facility] [address] [id number] [place] [address]- 6013 Jan, [facility] [place] [facility] [address] [id number] [place] [address]- 2428 Jan, [facility] [place] [facility] [address] [id number] [place] [address]- 9001 Jan, [facility] [place] [facility] [address] [id number] [place] [address]- 6056 Dec, [facility] [place] [facility] [address] [id number] [place] [address]- 2248 Dec, [facility] [place] [facility] [address] [id number] [place] [address]- 7196 Dec, [facility] [place] [facility] [address] [id number] [place] [address]- 3242 Dec, [facility] [place] [facility] [address] [id number] [place] [address]- 3324 12 Dec, 2014 [facility] [address] [id number] [place] [address]- 7210 Dec, [facility] [address] [id number] [place] [address]- 9148 15 Nov, 2014 [facility] [address] [id number] [place] [address]- 4996 15 Nov, 2014 [facility] [address] [id number] [place] [address]- 7059 Nov, [facility] [address] [id number] [place] [address]- 3830 Nov, [facility] [address] [id number] [place] [address]- 5401 Nov, [facility] [address] [id number] [place] [address]- 8373 Nov, [facility] [address] [id number] [place] [address]- 2248 Nov, [facility] [address] [id number] [place] [address]- 7991 Nov, [facility] [address] [id number] [place] [address]- 3225 Nov, [facility] [address] [id number] [place] [address]- 6143 Nov, [facility] [address] [id number] [place] [address]- 2748 Nov, [facility] [place] [facility] [address] [id number] [place] [address]- 2627 Oct, [facility] [place] [facility] [address] [id number] [place] [address]- 6016 Oct, [facility] [address] [id number] [place] [address]383 Oct, [facility] [place] [facility] [address] [id number] [place] [address]- 1390 Oct, [facility] [place] [facility] [address] [id number] [place] [address]- 7001 Oct, [facility] [place] [facility] [address] [id number] [place] [address] Oct, [facility] [place] [facility] [address] [id number] [place] [address] Oct, [facility] [place] [facility] [address] [id number] [place] [address] Oct, [facility] [place] [facility] [address] [id number] [place] [address] Oct, [facility] [place] [facility] [address] [id number] [place] [address] Oct, [facility] [place] [facility] [address] [id number] [place] [address] Sep, [facility] [place] [facility] [address] [id number] [place] [address] Sep, [facility] [place] [facility] [address] [id number] [place] [address] Sep, [facility] [place] [facility] [address] [id number] [place] [address] Sep, [facility] [place] [facility] [address] [id number] [place] [address] Sep, [facility] [place] [facility] [address] [id number] [place] [address] Sep, [facility] [place] [facility] [address] [id number] [place] [address] Sep, [facility] [place] [facility] [address] [id number] [place] [address] Sep, [facility] [place] [facility] [address] [id number] [place] [address] Sep, [facility] [place] [facility] [address] [id number] [place] [address] 17 Sep, 2014 [facility] [place] [facility] [address] [id number] [place] [address] Sep, [facility] [place] [facility] [address] [id number] [place] [address] Sep, [facility] [place] [facility] [address] [id number] [place] [address] Sep, [facility] [place] [facility] [address] [id number] [place] [address] Aug, [facility] [place] [facility] [address] [id number] [place] [address] Aug, [facility] [place] [facility] [address] [id number] [place] [address] Aug, [facility] [place] [facility] [address] [id number] [place] [address] 30 Aug, 2014 [facility] [place] [facility] [address] [id number] [place] [address] 30 Aug, 2014 [facility] [place] [facility] [address] [facility] [id number] [place] [address] 30 Aug, 2014 [facility] [place] [facility] [address] [id number] [place] [address] Aug, [facility] [place] [facility] [address] [id number] [place] [address] Aug, [facility] [place] [facility] [address] [id number] [place] [address] Aug, [facility] [place] [facility] [address] [facility] [id number] [place] [address] Aug, [facility] [place] [facility] [address] [facility] [id number] [place] [address] Aug, [facility] [place] [facility] [address] [id number] [place] [address] Aug, 2013 [facility] [place] [facility] [address] [id number] [place] [address] Aug, [facility] [place] [facility] [address] [id number] [place] [address] Aug, 2013 [facility] [place] [facility] [address] [id number] [place] [address] Aug, 2013 [facility] [place] [facility] [address] [id number] [place] [address] Aug, [facility] [place] [facility] [address] [id number] [place] [address] Aug, [facility] [place] [facility] [address] [id number] [place] [address] Aug, [facility] [place] [facility] [address] [id number] [place] [address] 30 Sep, 2013 [facility] [place] [facility] [address] [id number] [place] [address] 30 Sep, 2013 [facility] [place] [facility] [address] [id number] [place] [address] 24 Sep, 2013 [facility] [place] [facility] [address] [id number] [place] [address] 24 Sep, 2013 [facility] [place] [facility] [address] [id number] [place] [address] 23 Sep, 2013 [facility] [place] [facility] [address] [id number] [place] [address] 23 Sep, 2013 [facility] [place] [facility] [address] [id number] [place] [address] 15 Sep, 2013 [facility] [place] [facility] [address] [id number] [place] [address] 15 Sep, 2013 [facility] [place] [facility] [address] [id number] [place] [address] Jul, [facility] [address] [facility] [id number] [place] [address] Jul, [facility] [address] [facility] [id number] [place] [address] Jul, [facility] [address] [facility] [id number] [place] [address] Jul, [facility] [address] [facility] [id number] [place] [address] Jul, [facility] [address] [facility] [id number] [place] [address] Jul, IMMUNIZATIONS No Known Immunizations SOCIAL HISTORY Never Assessed REASON FOR VISIT PLAN OF CARE VITAL SIGNS MEDICATIONS Medication Instructions Dosage Frequency Start Date End Date Duration Status Omeprazole 20 mg Orally Once a day TAKE ONE CAPSULE BY MOUTH ONCE DAILY 24h 90 days Active Norvasc 5 mg Orally Once a day TAKE 1 TABLET BY MOUTH ONCE A DAY 24h 90 days Active Tradjenta 5 mg Orally Once a day TAKE ONE TABLET BY MOUTH ONCE DAILY 24h 90 days Active Atorvastatin Calcium 40 mg Orally Once a day 1 tablet 24h March, 90 days Active RESULTS No Results PROCEDURES No Known procedures INSTRUCTIONS MEDICATIONS ADMINISTERED No Known Medications MEDICAL (GENERAL) HISTORY Type Description Date Medical History hearing loss Medical History hypertension Medical History acute renal failure Medical History hyperlipidemia Medical History type II diabetes Medical History Arthritis Medical History degenerative disease lumbosacral spine Medical History chronic pain r/t DDD Medical History fibromyalgia Medical History NH-stent to LAD Surgical History cholecystectomy 1983 Surgical [...] Influenza illness, hyperglycemia 2017 Hospitalization History ED [facility]- High BS (Pt left AMA) 01/05/2018 Hospitalization History [facility]- DKA and UTI. Discharged 01/14/2018 Hospitalization History [facility]- Nausea and Vomiting, cannot urinate 01/18/2018
--- OUTSIDE RECORDS SUMMARY | 2018-07-31 02:42 | XMS REPORT ---
Author Author BURKSMARCELINO Rene [facility] Address [address] [place] [address] Care Team Providers Care Audiometric Technician Name Role Phone MARCELINO BURKS Unavailable PROBLEMS Type Condition ICD9-CM Code PXC47-VS Code Onset Dates Condition Status SNOMED Code Problem Dental caries K02.9 Active 06727400 Problem Primary insomnia F51.01 Active 8526460 Problem Seasonal allergic rhinitis due to pollen J30.1 Active 80926214 Problem Type 2 diabetes mellitus with hyperglycemia E11.65 Active 718575347465210 Problem Hyperlipidemia E78.5 Active 88058828 Problem Cervicalgia M54.2 Active 94907656 Problem Alterations of sensations R20.9 Active 739534350 Problem Other obesity due to excess calories E66.09 Active 876993804 Problem Arthritis M19.90 Active 2179705 Problem Diabetic mononeuropathy associated with type 2 diabetes mellitus E11.41 Active 536570391 Problem Body mass index (BMI) of 33.0-33.9 in adult Z68.33 Active 505355280 Problem GERD (gastroesophageal reflux disease) K21.9 Active 079876363 Problem residential 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 Active 638799351 Problem Degenerative disc disease, lumbar M51.36 Active 68961363 Problem Fibromyalgia M79.7 Active 92894607 Problem Tobacco abuse Z72.0 Active 74626199 Problem Tobacco abuse counseling Z71.6 Active 404490460 Problem Essential hypertension I10 Active 97496093 Problem Chronic pain syndrome G89.4 Active 396756277 Problem CAD (coronary artery disease) I25.10 Active 85624172 Problem DM neuro manif type II E11.49 Active 25727719 ALLERGIES No Information ENCOUNTERS Encounter Location Date Diagnosis [facility] [address] [facility] [id number] [address] 07 Jul, 2018 [facility] [address] [id number] [address] Apr, Type 2 diabetes mellitus with hyperglycemia E11.65 [place] [address] 75263- 0762 Apr, Hyperlipidemia E78.5 ; Chronic pain syndrome G89.4 ; Cervicalgia M54.2 ; DM neuro manif type II E11.49 ; [employer] 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 ; Nausea alone R11.0 ; Essential hypertension I10 ; GERD ( gastroesophageal reflux disease) K21.9 ; CAD (coronary artery disease) I25.10 and Diabetic mononeuropathy associated with type 2 diabetes mellitus E11.41 [place] [address] [address]18- 0913 Apr, [place] [address] 32090- 6447 March, Essential hypertension I10 ; DM neuro manif type II E11.49 and GERD (gastroesophageal reflux disease) K21.9 [place] [address] 04622- 8356 March, DM neuro manif type II E11.49 and GERD (gastroesophageal reflux disease) K21.9 [place] [address] 84333- 2578 March, [place] [address] 12602- 9434 Feb, Tobacco abuse Z72.0 [place] [address] 05594- 2765 Feb, Tobacco abuse Z72.0 [place] [address] 07279- 5835 Feb, Hypokalemia E87.6 [place] [address] 40591- 1975 Feb, Hyperlipidemia E78.5 ; Essential hypertension I10 ; DM neuro manif type II E11.49 ; Fibromyalgia M79.7 ; Acute non-recurrent frontal sinusitis J01.10 ; Other obesity due to excess calories E66.09 and Body mass index (BMI) of 33.0-33.9 in adult Z68.33 [place] [address] 13101- 7467 05 Jan, 2018 Dysuria R30.0 [place] [address] 53332- 8262 05 Jan, 2018 Dysuria R30.0 [place] [address] 38803- 8806 02 Jan, 2018 Acute cystitis with hematuria N30.01 ; DM neuro manif type II E11.49 ; [employer] 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 ; Essential hypertension I10 and Hospital discharge follow-up Z09 [place] [address] 31031- 6021 27 Dec, 2017 Chest pain, unspecified type R07.9 ; Dehydration E86.0 and Anuria R34 [place] [address] 14238- 9880 Dec, [place] [address] 59789- 2626 Dec, Hyperglycemia R73.9 ; Dehydration E86.0 and Acute cystitis with hematuria N30.01 [facility] [address] [place] [address] 80687 -5796 Dec, [facility] [address] [place] [address] 02999 -8002 Dec, [facility] [address] [place] [address] 15821 -6807 Dec, [facility] [address] [place] [address] 92763 -8490 16 Dec, 2017 Dysuria R30.0 ; Acute cystitis with hematuria N30.01 and Weakness R53.[address] 00937- 2077 Dec, [place] [address] [id number] [place] [address] 02106- 7348 Nov, [place] [address] 84405- 9129 Nov, [place] [address] 02615- 5939 Nov, Essential hypertension I10 ; DM neuro [...] Seasonal allergic rhinitis due to pollen J30.[address] 23722- 1356 Nov, Alterations of sensations R20.9 [place] [address] 26059- 2477 Sep, DM neuro manif type II E11.49 ; Hyperlipidemia E78.5 ; Degenerative disc disease, lumbar M51.36 and Chronic pain syndrome G89.4 [place] [id number] [place] [address] 67164- 7694 Sep, Arthritis M19.90 [place] [address] 78153- 7832 Sep, Type 2 diabetes mellitus without complication E11.9 ; GERD ( gastroesophageal reflux disease) K21.9 ; Arthritis M19.90 and Chronic pain syndrome G89.4 [place] [address] 96170- 0593 Sep, [place] [id number] [place] [address] 60171- 9301 Aug, [place] [address] 43668- 6147 18 Aug, 2017 Type 2 diabetes mellitus without complication E11.9 [facility] [address] [address] 17 Aug, 2017 [facility] [id number] [place] [address] 11535- 4639 16 Aug, 2017 [facility] [id number] [place] [address] 19193- 1012 Aug, [facility] [id number] [place] [address] 97415- 6210 26 Jul, 2017 [facility] [id number] [place] [address] 44576 -1838 22 Jul, 2017 Acute non-recurrent frontal sinusitis J01.10 [place] [address] [id number] [place] [address] 09432- 0697 20 Jul, 2017 CAD (coronary artery disease) I25.10 and GERD ( gastroesophageal reflux disease) K21.9 [place] [id number] [place] [address] 27365- 3426 14 Jul, 2017 Localized swelling, mass and lump, neck R22.1 [place] [address] [id number] [place] [address] 13254- 6461 06 Jul, 2017 [place] [id number] [place] [address] 48409- 4522 Jun, Type 2 diabetes mellitus without complication E11.9 ; Primary insomnia F51.01 ; Alterations of sensations R20.9 ; Hyperlipidemia E78.5 ; GERD (gastroesophageal reflux disease) K21.9 ; Essential hypertension I10 ; [employer] 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 ; Tobacco abuse Z72.0 ; Tobacco abuse counseling Z71.6 and CAD (coronary artery disease) I25.10 [facility] [id number] [place] [address] 06064- 6965 May, [place] [address] [address] [id number] [place] [address] 73419- 3316 May, Type 2 diabetes mellitus without complication E11.9 [facility] [id number] [place] [address] 97875- 2470 May, [facility] [id number] [place] [address] 73055- 2762 March, [facility] [id number] [place] [address] 89687- 4547 Feb, [facility] [id number] [place] [address] 07678 -7856 Jan, Acute suppurative otitis media of left ear with spontaneous rupture of tympanic membrane, recurrence not specified H66.012 [place] [address] [address] [id number] [place] [address] 92889- 2268 Dec, Type 2 diabetes mellitus without complication E11.9 ; Lumbago M54.5 ; Cervicalgia M54.2 ; Hyperlipidemia E78.5 ; GERD ( gastroesophageal reflux disease) K21.9 ; Chronic pain syndrome G89.4 ; Dysuria R30.0 and Essential hypertension I10 [place] [address] [id number] [place] [address] 44603- 9791 Oct, [place] [address] [id number] [place] [address] 98132- 9431 30 Sep, 2016 Diabetic mononeuropathy associated with type 2 diabetes mellitus E11.41 and Coughing R05 [place] [id number] [place] [address] 22225- 0731 Sep, Diabetic mononeuropathy associated with type 2 diabetes mellitus E11.41 and Coughing R05 [facility] [id number] [place] [address] 37322- 0750 Sep, Onychomycosis B35.1 ; Neuritis M79.2 and Type 2 diabetes mellitus without complication E11.9 [facility] [id number] [place] [address] 90659- 2782 Sep, [facility] [id number] [place] [address] 83480- 9317 Sep, Cough R05 ; Seasonal allergic rhinitis due to pollen J30.1 and Acute upper respiratory infection, unspecified J06.9 [place] [id number] [place] [address] 49879- 3261 Sep, [place] [address] 15383- 6220 Aug, [place] [address] 12308- 3370 Jul, Type 2 diabetes mellitus without complication E11.9 ; Chronic pain G89.29 ; Essential hypertension I10 and Acute non-recurrent maxillary sinusitis J01.00 [place] [address] 18380- 0785 Jul, Chronic pain syndrome G89.4 ; Lumbago M54.5 and Cervicalgia M54.2 [place] [address] 73138- 6699 Jul, [place] [address] 03104- 1263 Jul, [place] [address] 75553- 4035 Jun, Onychomycosis B35.1 ; Onychocryptosis L60.0 and DM neuro manif type II E11.49 [place] [id number] [place] [address] 81601- 7247 Jun, Type 2 diabetes mellitus without complication E11.9 ; Pain in unspecified hip M25.559 ; Other chronic pain G89.29 ; Lumbago M54.5 ; Chronic pain G89.29 ; Insomnia, unspecified G47.00 ; GERD (gastroesophageal reflux disease) K21.9 and Dental caries K02.9 [place] [id number] [place] [address] 74787- 5581 Jun, Type 2 diabetes mellitus without complication E11.9 ; Lumbago M54.5 ; Chronic pain G89.29 ; Insomnia, unspecified G47.00 ; GERD ( gastroesophageal reflux disease) K21.9 ; Dental caries K02.9 ; Pain in unspecified hip M25.559 and Other chronic pain G89.29 [place] [address] 99530- 7146 May, [place] [address] 68406- 6116 May, Type 2 diabetes mellitus without complication E11.9 ; Essential hypertension I10 ; Chronic pain syndrome G89.4 ; Other seasonal allergic rhinitis J30.2 and Insomnia, unspecified G47.00 [place] [address] 35581- 0103 Apr, [address] 06140- 2607 Apr, Hypertension I10 and Chronic pain G89.[address] 52198- 6017 March, Onychomycosis B35.1 ; Onychocryptosis L60.0 and Type 2 diabetes mellitus without complication E11.9 [place] [address] 58975- 8405 March, Type 2 diabetes mellitus without complication E11.9 ; Essential hypertension I10 ; Alterations of sensations R20.9 ; Chronic pain syndrome G89.4 ; Tobacco abuse Z72.0 and Tobacco abuse counseling Z71.[address] 85343- 6770 Feb, Cough R05 ; Tobacco abuse counseling Z71.6 ; Chronic pain G89.29 and Type 2 diabetes mellitus without complication E11.9 [place] [address] 96775- 4812 Feb, [place] [address] 80278- 0598 Feb, Type 2 diabetes mellitus without complication E11.9 ; Lumbago M54.5 ; Cervicalgia M54.2 ; Degenerative disc disease, lumbar M51.36 and Numbness and tingling of both legs 782.0 [facility] [id number] [place] [address] [id number] Jan, Dental caries K02.9 and Encounter for dental examination Z01.[address] 88446- 0417 Jan, Type 2 diabetes mellitus without complication E11.9 [place] [address] 44437- 5495 Jan, Type 2 diabetes mellitus without complication E11.9 ; Numbness and tingling of both legs 782.0 ; Fibromyalgia M79.7 ; Hyperlipidemia E78.5 ; Lumbago M54.5 ; Cervicalgia M54.2 ; Hypertension I10 ; CAD (coronary artery disease) I25.10 ; Tobacco abuse Z72.0 ; Tobacco abuse counseling Z71.6 and GERD (gastroesophageal reflux disease) K21.[address] 69123- 5773 Jan, [address] 18557- 1142 Dec, [facility] [id number] [place] [address] [id number] Dec, Dental examination Z01.20 and Dental caries K02.[address] 75372- 0722 Dec, Edema R60.9 ; Type 2 diabetes mellitus without complication E11.9 ; Hypertension I10 and Mouth pain K13.[address] 34931- 5720 Dec, Degenerative disc disease, lumbar M51.[address] 97241- 2529 Dec, [address] [place] [address]- 5016 Nov, Insomnia, unspecified G47.00 [place] [address] 00131- 1671 Nov, Type 2 diabetes mellitus without complication E11.9 ; Lumbago M54.5 ; Degenerative disc disease, lumbar M51.36 ; Fibromyalgia M79.7 ; Coronary artery disease I25.10 ; Hyperlipidemia E78.5 ; Controlled substance agreement signed Z79.899 ; Dysuria R30.0 ; Insomnia, unspecified G47.00 ; GERD ( gastroesophageal reflux disease) K21.9 ; Hypertension 401.9 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 [place] [address] 61685- 1108 Nov, [place] [address] 96946- 3014 Oct, Degenerative disc disease, lumbar M51.36 ; Cervicalgia M54.2 ; Insomnia, unspecified G47.00 ; Decreased GFR R94.4 and GERD ( gastroesophageal reflux disease) K21.9 [place] [address] 75854- 2994 Oct, Lumbago M54.5 [place] [address] 52985- 9849 Oct, Low back pain M54.5 [place] [address] 45326- 8380 Oct, [place] [address] 92070- 4558 Oct, Disorientation R41.0 [place] [address] 42423- 9465 Oct, Type 2 diabetes mellitus without complication E11.9 ; Disorientation R41.0 and Chest pain R07.9 [place] [address] 71707- 9908 Oct, [facility] [id number] [place] [address] 93876- 9858 Sep, Low back pain M54.5 [facility] [id number] [place] [address] 45369- 2993 Sep, Insomnia, unspecified G47.00 [facility] [id number] [place] [address] 22166- 9275 Aug, Degenerative disc disease, lumbar M51.36 ; Type 2 diabetes mellitus without complication E11.9 and Encounter for immunization Z23 [facility] [id number] [place] [address] 12860- 6998 Aug, [facility] [id number] [place] [address] 41948- 3360 Aug, [facility] [id number] [place] [address] 37603- 3144 Aug, [facility] [id number] [place] [address] 74324- 7341 Jul, [facility] [id number] [place] [address] 63772- 4891 Jun, [facility] [id number] [place] [address] 01365- 1501 Jun, Chest pain 786.50 and Lumbago 724.2 [facility] [id number] [place] [address] 88117- 5076 Jun, [facility] [id number] [place] [address] 31321- 1515 Jun, [facility] [id number] [place] [address] [id number] Jun, Dental examination V72.2 [facility] [id number] [place] [address] 93907- 7980 Jun, [facility] [id number] [place] [address] 13002- 1958 May, Left shoulder pain 719.41 and Numbness and tingling of both legs 782.0 [facility] [id number] [place] [address] 62794- 4661 May, Cough 786.2 ; Numbness and tingling of both legs 782.0 and Acute rhinitis 460 [facility] [id number] [place] [address] 27265- 3118 May, [facility] [id number] [place] [address] 98795- 7901 Apr, [facility] [id number] [place] [address] 44895- 8028 Apr, Bilateral lower extremity edema 782.3 ; Lumbago 724.2 and Insomnia 780.52 [facility] [id number] [place] [address] 11943- 7120 Apr, [facility] [id number] [place] [address] 15203- 8729 Apr, [facility] [id number] [place] [address] 67115- 8895 March, Seborrheic keratosis 702.19 and Skin lesion of face 709.9 [facility] [id number] [place] [address] 35719- 8291 March, [facility] [id number] [place] [address] 44056- 6805 March, [facility] [id number] [place] [address] 39485- 1637 March, [facility] [id number] [place] [address] 373190- 2319 March, [facility] [id number] [place] [address] 07670- 5898 Feb, [facility] [id number] [place] [address] 10758- 4293 Feb, [facility] [place] [facility] [address] [id number] [place] [address]- 9561 25 Jan, 2015 [facility] [place] [facility] [address] [id number] [place] [address]- 9478 25 Jan, 2015 [facility] [place] [facility] [address] [id number] [place] [address]- 8091 16 Jan, 2015 [facility] [place] [facility] [address] [id number] [place] [address]- 6150 16 Jan, 2015 [facility] [place] [facility] [address] [id number] [place] [address]- 5620 16 Jan, 2015 [facility] [place] [facility] [address] [id number] [place] [address]- 7961 16 Jan, 2015 [facility] [place] [facility] [address] [id number] [place] [address]- 0758 Jan, [facility] [place] [facility] [address] [id number] [place] [address]- 2131 13 Jan, 2015 [facility] [place] [facility] [address] [id number] [place] [address]- 7780 Jan, [facility] [place] [facility] [address] [id number] [place] [address]- 4824 Jan, [facility] [place] [facility] [address] [id number] [place] [address]- 6064 Jan, [facility] [place] [facility] [address] [id number], [place] [address]- 9967 Dec, [facility] [place] [facility] [address] [id number] [place] [address]- 9981 Dec, [facility] [place] [facility] [address] [id number] [place] [address]- 8110 Dec, [facility] [place] [facility] [address] [id number] [place] [address]- 9852 Dec, [facility] [place] [facility] [address] [id number] [place] [address]- 8595 12 Dec, 2014 [facility] [address] [id number] [place] [address]- 0158 Dec, [facility] [address] [id number] [place] [address]- 0574 15 Nov, 2014 [facility] [address] [id number] [place] [address]- 3893 15 Nov, 2014 [facility] [address] [id number] [place] [address]- 0094 Nov, [facility] [address] [id number] [place] [address]- 4187 Nov, [facility] [address] [id number] [place] [address]- 3946 Nov, [facility] [address] [id number] [place] [address]- 4061 Nov, [facility] [address] [id number] [place] [address]- 8166 Nov, [facility] [address] [id number] [place] [address]- 1435 Nov, [facility] [address] [id number] [place] [address]- 9751 Nov, [facility] [address] [id number] [place] [address]- 4765 Nov, [facility] [address] [id number] [place] [address]- 5495 Nov, [facility] [place] [facility] [address] [id number] [place] [address]- 4219 Oct, [facility] [place] [facility] [address] [id number] [place] [address]- 9426 Oct, [facility] [address] [id number] [place] 0340 Oct, [facility] [place] [facility] [address] [id number] [place] [address]- 3999 Oct, [facility] [place] [facility] [address] [id number] [place] [address]- 7530 Oct, [facility] [place] [facility] [address] [id number] [place] [address]- 1017 Oct, [facility] [place] [facility] [address] [id number] [place] [address]- 7603 Oct, [facility] [place] [facility] [address] [id number] [place] [address]- 1224 Oct, [facility] [place] [facility] [address] [id number] [place] [address]- 3037 Oct, [facility] [place] [facility] [address] [id number] [place] [address]- 2589 Oct, [facility] [place] [facility] [address] [id number] [place] [address]- 3129 Sep, [facility] [place] [facility] [address] [id number] [place] [address]- 6970 Sep, [facility] [place] [facility] [address] [id number], [place] [address] Sep, [facility] [place] [facility] [address] [id number], [place] [address] Sep, [facility] [place] [facility] [address] [id number], [place] [address] Sep, [facility] [place] [facility] [address] [id number], [place] [address] Sep, [facility] [place] [facility] [address] [id number], [place] [address] Sep, [facility] [place] [facility] [address] [id number], [place] [address] Sep, [facility] [place] [facility] [address] [id number], [place] [address] Sep, [facility] [place] [facility] [address] [id number] [place] [address] 17 Sep, 2014 [facility] [place] [facility] [address] [id number] [place] [address] Sep, [facility] [place] [facility] [address] [id number] [place] [address] Sep, [facility] [place] [facility] [address] [id number] [place] [address] Sep, [facility] [place] [facility] [address] [id number] [place] [address] Aug, [facility] [place] [facility] [address] [id number] [place] [address] Aug, [facility] [place] [facility] [address] [id number] [place] [address] Aug, [facility] [place] [facility] [address] [id number] [place] [address] 30 Aug, 2014 [facility] [place] [facility] [address] [id number] [place] [address] 30 Aug, 2014 [facility] [place] [facility] [address] [facility] [id number] [place] [address] 30 Aug, 2014 [facility] [place] [facility] [address] [id number] [place] [address] Aug, [facility] [place] [facility] [address] [id number], [place] [address] Aug, [facility] [place] [facility] [address] [id number] [place] [address] Aug, [facility] [place] [facility] [address] [facility] [id number], [place] [address] Aug, [facility] [place] [facility] [address] [facility] [id number], [place] [address] Aug, [facility] [place] [facility] [address] [id number] [place] [address] Aug, 2013 [facility] [place] [facility] [address] [id number] [place] [address] Aug, [facility] [place] [facility] [address] [id number] [place] [address] Aug, 2013 [facility] [place] [facility] [address] [id number] [place] [address] Aug, 2013 [facility] [place] [facility] [address] [id number] [place] [address] Aug, [facility] [place] [facility] [address] [id number] [place] [address] Aug, [facility] [place] [facility] [address] [id number] [place] [address] Aug, [facility] [place] [facility] [address] [id number] [place] [address] 30 Sep, 2013 [facility] [place] [facility] [address] [id number] [place] [address] 30 Sep, 2013 [facility] [place] [facility] [address] [id number] [place] [address] 24 Sep, 2013 [facility] [place] [facility] [address] [id number] [place] [address] 24 Sep, 2013 [facility] [place] [facility] [address] [id number] [place] [address] 23 Sep, 2013 [facility] [place] [facility] [address] [id number] [place] [address] 23 Sep, 2013 [facility] [place] [facility] [address] [id number] [place] [address] 15 Sep, 2013 [facility] [place] [facility] [address] [id number] [place] [address] 15 Sep, 2013 [facility] [place] [facility] [address] [id number] [place] [address] Jul, [facility] [address] [facility] [id number], [place] [address] Jul, [facility] [address] [facility] [id number], [place] [address] Jul, [facility] [address] [facility] [id number], [place] [address] Jul, [facility] [address] [facility] [id number], [place] [address] Jul, [facility] [address] [facility] [id number], [place] [address] Jul, IMMUNIZATIONS No Known Immunizations SOCIAL HISTORY Never Assessed REASON FOR VISIT Refill request PLAN OF CARE VITAL SIGNS MEDICATIONS Medication Instructions Dosage Frequency Start Date End Date Duration Status Norvasc 5 mg Orally Once a day TAKE 1 TABLET BY MOUTH ONCE A DAY 24h 90 days Active Atorvastatin Calcium 40 mg Orally Once a day 1 tablet 24h March, 90 days Active Tradjenta 5 mg Orally Once a day TAKE ONE TABLET BY MOUTH ONCE DAILY 24h 90 days Active Levemir FlexTouch 100 UNIT/ML Subcutaneous 2 times a day INJECT 58 UNITS SUBCUTANEOUSLY TWICE DAILY 12h Active Humalog 100 UNIT/ML Active Omeprazole 20 mg Orally Once a day TAKE ONE CAPSULE BY MOUTH ONCE DAILY 24h 90 days Active RESULTS No Results PROCEDURES [...] Milagros- Influenza illness, hyperglycemia 2017 [facility] History [facility] BS (Pt left AMA) 01/05/2018 Hospitalization History [facility]- DKA and UTI. Discharged 01/14/2018 Hospitalization [facility]- Nausea and Vomiting, cannot urinate 01/18/2018
--- OUTSIDE RECORDS SUMMARY | 2018-07-31 02:42 | XMS REPORT ---
Author Author BURKSMARCELINO Rene [facility] Address [address] [place] [address] Care Team Providers Care Biology Specialist Name Role Phone MARCELINO BURKS Unavailable PROBLEMS Type Condition ICD9-CM Code [id number] Code Onset Dates Condition Status SNOMED Code Problem Dental caries K02.9 Active 42963884 Problem Primary insomnia F51.01 Active 6235466 Problem Seasonal allergic rhinitis due to pollen J30.1 Active 65462608 Problem Type 2 diabetes mellitus with hyperglycemia E11.65 Active 521562608649634 Problem Hyperlipidemia E78.5 Active 26850921 Problem Cervicalgia M54.2 Active 98433723 Problem Alterations of sensations R20.9 Active 810539924 Problem Other obesity due to excess calories E66.09 Active 447379818 Problem Arthritis M19.90 Active 0907358 Problem Diabetic mononeuropathy associated with type 2 diabetes mellitus E11.41 Active 159069807 Problem Body mass index (BMI) of 33.0-33.9 in adult Z68.33 Active 176452250 Problem GERD (gastroesophageal reflux disease) K21.9 Active 309934405 Problem USP 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 Active 540866183 Problem Degenerative disc disease, lumbar M51.36 Active 96195167 Problem Fibromyalgia M79.7 Active 06513124 Problem Tobacco abuse Z72.0 Active 73796719 Problem Tobacco abuse counseling Z71.6 Active 776918687 Problem Essential hypertension I10 Active 87314174 Problem Chronic pain syndrome G89.4 Active 689908235 Problem CAD (coronary artery disease) I25.10 Active 45592714 Problem DM neuro manif type II E11.49 Active 42262830 ALLERGIES No Information ENCOUNTERS Encounter Location Date Diagnosis [facility] [address] [facility] [id number] [address] Jul, [facility] [address] [place] [id number] [address] Apr, Type 2 diabetes mellitus with hyperglycemia E11.65 [place] [address] 88074- 7539 Apr, Hyperlipidemia E78.5 ; Chronic pain syndrome G89.4 ; Cervicalgia M54.2 ; DM neuro manif type II E11.49 ; oysterman 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 ; Nausea alone R11.0 ; Essential hypertension I10 ; GERD ( gastroesophageal reflux disease) K21.9 ; CAD (coronary artery disease) I25.10 and Diabetic mononeuropathy associated with type 2 diabetes mellitus E11.41 [place] [address] 07045- 1734 Apr, [place] [address] 98825- 9386 March, Essential hypertension I10 ; DM neuro manif type II E11.49 and GERD (gastroesophageal reflux disease) K21.9 [place] [address] 54971- 6355 March, DM neuro manif type II E11.49 and GERD (gastroesophageal reflux disease) K21.9 [place] [address] 57338- 5068 March, [place] [address] 80172- 3303 Feb, Tobacco abuse Z72.0 [place] [address] 21425- 7482 Feb, Tobacco abuse Z72.0 [place] [address] 84431- 8319 Feb, Hypokalemia E87.6 [place] [address] 05579- 7728 Feb, Hyperlipidemia E78.5 ; Essential hypertension I10 ; DM neuro manif type II E11.49 ; Fibromyalgia M79.7 ; Acute non-recurrent frontal sinusitis J01.10 ; Other obesity due to excess calories E66.09 and Body mass index (BMI) of 33.0-33.9 in adult Z68.33 [place] [address] 26399- 6600 05 Jan, 2018 Dysuria R30.0 [place] [address] 51784- 0790 05 Jan, 2018 Dysuria R30.0 [place] [address] 81054- 6963 02 Jan, 2018 Acute cystitis with hematuria N30.01 ; DM neuro manif type II E11.49 ; oysterman 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 ; Essential hypertension I10 and Hospital discharge follow-up Z09 [place] [address] 10679- 5157 27 Dec, 2017 Chest pain, unspecified type R07.9 ; Dehydration E86.0 and Anuria R34 [place] [address] 78286- 7971 Dec, [place] [address] 75148- 0676 Dec, Hyperglycemia R73.9 ; Dehydration E86.0 and Acute cystitis with hematuria N30.01 [facility] [address] [place] [address] 17676 -0521 Dec, [facility] [address] [place] [address] 39648 -1824 Dec, [facility] [address] [place] [address] 41143 -5695 Dec, [facility] [address] [place] [address] 95726 -9087 16 Dec, 2017 Dysuria R30.0 ; Acute cystitis with hematuria N30.01 and Weakness R53.[address] 73119- 3047 Dec, [place] [id number] [place] [address] 96443- 3595 Nov, [place] [address] 54590- 3905 Nov, [place] [address] 13539- 6995 Nov, Essential hypertension I10 ; DM neuro manif type II E11.49 ; oysterman 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 ; Tobacco abuse Z72.0 ; Hyperlipidemia E78.5 ; Non-adherence to medical treatment Z91.19 ; GERD (gastroesophageal reflux disease) K21.9 ; Degenerative disc disease, lumbar M51.36 ; Fibromyalgia M79.7 ; Chronic pain syndrome G89.4 ; Dental caries K02.9 and Seasonal allergic rhinitis due to pollen J30.[address] 48127- 3607 Nov, Alterations of sensations R20.9 [place] [address] 79206- 8082 Sep, DM neuro manif type II E11.49 ; Hyperlipidemia E78.5 ; Degenerative disc disease, lumbar M51.36 and Chronic pain syndrome G89.4 [place] [address] [address] [id number] [place] [address] 58382- 1746 Sep, Arthritis M19.90 [place] [address] 42620- 4080 Sep, Type 2 diabetes mellitus without complication E11.9 ; GERD ( gastroesophageal reflux disease) K21.9 ; Arthritis M19.90 and Chronic pain syndrome G89.4 [place] [address] 23621- 6064 Sep, [place] [address] [address] [id number] [place] [address] 53863- 9416 Aug, [place] [address] 58714- 4763 18 Aug, 2017 Type 2 diabetes mellitus without complication E11.9 [facility] [address] [address] 5[address] 17 Aug, 2017 [facility] [address] [id number] [place] [address] 21246- 9352 16 Aug, 2017 [facility] [address] [id number] [place] [address] 50659- 1460 Aug, [facility] [id number] [place] [address] 32952- 2437 26 Jul, 2017 [facility] [id number] [place] [address] 20862 -9837 22 Jul, 2017 Acute non-recurrent frontal sinusitis J01.10 [place] [address] [id number] [place] [address] 44974- 3232 20 Jul, 2017 CAD (coronary artery disease) I25.10 and GERD ( gastroesophageal reflux disease) K21.9 [place] [address] [address] [id number] [place] [address] 97769- 4179 14 Jul, 2017 Localized swelling, mass and lump, neck R22.1 [place] [address] [address] [id number] [place] [address] 75895- 0566 06 Jul, 2017 [place] [address] [address] [id number] [place] [address] 74723- 2078 Jun, Type 2 diabetes mellitus without complication E11.9 ; Primary insomnia F51.01 ; Alterations of sensations R20.9 ; Hyperlipidemia E78.5 ; GERD (gastroesophageal reflux disease) K21.9 ; Essential hypertension I10 ; oysterman 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 ; Tobacco abuse Z72.0 ; Tobacco abuse counseling Z71.6 and CAD (coronary artery disease) I25.10 [facility] [id number] [place] [address] 99402- 6985 May, [place] [address] [address] [id number] [place] [address] 43643- 2153 May, Type 2 diabetes mellitus without complication E11.9 [facility] [id number] [place] [address] 29077- 5558 May, [facility] [address] [id number] [place] [address] 35052- 8924 March, [facility] [id number] [place] [address] 94791- 5555 Feb, [facility] [id number] [place] [address] 09695 -9824 Jan, Acute suppurative otitis media of left ear with spontaneous rupture of tympanic membrane, recurrence not specified H66.012 [place] [address] [id number] [place] [address] 38082- 3198 Dec, Type 2 diabetes mellitus without complication E11.9 ; Lumbago M54.5 ; Cervicalgia M54.2 ; Hyperlipidemia E78.5 ; GERD ( gastroesophageal reflux disease) K21.9 ; Chronic pain syndrome G89.4 ; Dysuria R30.0 and Essential hypertension I10 [place] [address] [id number] [place] [address] 39391- 5361 Oct, [place] [address] [id number] [place] [address] 25008- 1001 30 Sep, 2016 Diabetic mononeuropathy associated with type 2 diabetes mellitus E11.41 and Coughing R05 [place] [address] [id number] [place] [address] 10743- 5240 Sep, Diabetic mononeuropathy associated with type 2 diabetes mellitus E11.41 and Coughing R05 [facility] [address] [place] [address] [id number] [place] [address] 52900- 5875 Sep, Onychomycosis B35.1 ; Neuritis M79.2 and Type 2 diabetes mellitus without complication E11.9 [facility] [id number] [place] [address] 52230- 6145 Sep, [facility] [address] [place] [id number] [place] [address] 64516- 3373 Sep, Cough R05 ; Seasonal allergic rhinitis due to pollen J30.1 and Acute upper respiratory infection, unspecified J06.9 [place] [address] [address] [id number] [place] [address] 24932- 2685 Sep, [place] [address] 73674- 7595 Aug, [place] [address] 45136- 3288 Jul, Type 2 diabetes mellitus without complication E11.9 ; Chronic pain G89.29 ; Essential hypertension I10 and Acute non-recurrent maxillary sinusitis J01.00 [place] [address] 43425- 6410 Jul, Chronic pain syndrome G89.4 ; Lumbago M54.5 and Cervicalgia M54.2 [place] [address] 88219- 3491 Jul, [place] [address] 37192- 3982 Jul, [place] [address] 71890- 7870 Jun, Onychomycosis B35.1 ; Onychocryptosis L60.0 and DM neuro manif type II E11.49 [place] [id number] [place] [address] 07438- 3695 Jun, Type 2 diabetes mellitus without complication E11.9 ; Pain in unspecified hip M25.559 ; Other chronic pain G89.29 ; Lumbago M54.5 ; Chronic pain G89.29 ; Insomnia, unspecified G47.00 ; GERD (gastroesophageal reflux disease) K21.9 and Dental caries K02.9 [place] [id number] [place] [address] 81927- 9776 Jun, Type 2 diabetes mellitus without complication E11.9 ; Lumbago M54.5 ; Chronic pain G89.29 ; Insomnia, unspecified G47.00 ; GERD ( gastroesophageal reflux disease) K21.9 ; Dental caries K02.9 ; Pain in unspecified hip M25.559 and Other chronic pain G89.29 [place] [address] 30429- 9857 May, [place] [address] 48603- 3568 May, Type 2 diabetes mellitus without complication E11.9 ; Essential hypertension I10 ; Chronic pain syndrome G89.4 ; Other seasonal allergic rhinitis J30.2 and Insomnia, unspecified G47.00 [place] [address] 95236- 4014 Apr, [address] 53952- 8867 Apr, Hypertension I10 and Chronic pain G89.[address] 02995- 9715 March, Onychomycosis B35.1 ; Onychocryptosis L60.0 and Type 2 diabetes mellitus without complication E11.9 [place] [address] 03036- 9828 March, Type 2 diabetes mellitus without complication E11.9 ; Essential hypertension I10 ; Alterations of sensations R20.9 ; Chronic pain syndrome G89.4 ; Tobacco abuse Z72.0 and Tobacco abuse counseling Z71.[address] 38807- 3060 Feb, Cough R05 ; Tobacco abuse counseling Z71.6 ; Chronic pain G89.29 and Type 2 diabetes mellitus without complication E11.9 [place] [address] 70231- 0417 Feb, [place] [address] 08112- 6870 Feb, Type 2 diabetes mellitus without complication E11.9 ; Lumbago M54.5 ; Cervicalgia M54.2 ; Degenerative disc disease, lumbar M51.36 and Numbness and tingling of both legs 782.0 [facility] [id number] [place] [address] [id number] Jan, Dental caries K02.9 and Encounter for dental examination Z01.[address] 87066- 3848 Jan, Type 2 diabetes mellitus without complication E11.9 [place] [address] 43492- 7478 Jan, Type 2 diabetes mellitus without complication E11.9 ; Numbness and tingling of both legs 782.0 ; Fibromyalgia M79.7 ; Hyperlipidemia E78.5 ; Lumbago M54.5 ; Cervicalgia M54.2 ; Hypertension I10 ; CAD (coronary artery disease) I25.10 ; Tobacco abuse Z72.0 ; Tobacco abuse counseling Z71.6 and GERD (gastroesophageal reflux disease) K21.[address] 87609- 5862 Jan, [address] 41935- 4065 Dec, [facility] [id number] [place] [address] [id number] Dec, Dental examination Z01.20 and Dental caries K02.[address] 28320- 5398 Dec, Edema R60.9 ; Type 2 diabetes mellitus without complication E11.9 ; Hypertension I10 and Mouth pain K13.[address] 76596- 7632 Dec, Degenerative disc disease, lumbar M51.[address] 09011- 0568 Dec, [address] [place] [address]- 4175 Nov, Insomnia, unspecified G47.00 [place] [address] 30742- 6004 Nov, Type 2 diabetes mellitus without complication E11.9 ; Lumbago M54.5 ; Degenerative disc disease, lumbar M51.36 ; Fibromyalgia M79.7 ; Coronary artery disease I25.10 ; Hyperlipidemia E78.5 ; Controlled substance agreement signed Z79.899 ; Dysuria R30.0 ; Insomnia, unspecified G47.00 ; GERD ( gastroesophageal reflux disease) K21.9 ; Hypertension 401.9 and oysterman 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 [place] [address] 08164- 2429 Nov, [place] [address] 01373- 5733 Oct, Degenerative disc disease, lumbar M51.36 ; Cervicalgia M54.2 ; Insomnia, unspecified G47.00 ; Decreased GFR R94.4 and GERD ( gastroesophageal reflux disease) K21.9 [place] [address] 34566- 8129 Oct, Lumbago M54.5 [place] [address] 20938- 9115 Oct, Low back pain M54.5 [place] [address] 23845- 2735 Oct, [place] [address] 36529- 2819 Oct, Disorientation R41.0 [place] [address] 23461- 1599 Oct, Type 2 diabetes mellitus without complication E11.9 ; Disorientation R41.0 and Chest pain R07.9 [place] [address] 67334- 8268 Oct, [facility] [id number] [place] [address] 29876- 7033 Sep, Low back pain M54.5 [facility] [id number] [place] [address] 94020- 7145 Sep, Insomnia, unspecified G47.00 [facility] [id number] [place] [address] 44747- 2691 Aug, Degenerative disc disease, lumbar M51.36 ; Type 2 diabetes mellitus without complication E11.9 and Encounter for immunization Z23 [facility] [id number] [place] [address] 27158- 1948 Aug, [facility] [id number] [place] [address] 44312- 9640 Aug, [facility] [id number] [place] [address] 78377- 0696 Aug, [facility] [id number] [place] [address] 60773- 9988 Jul, [facility] [id number] [place] [address] 44238- 0302 Jun, [facility] [id number] [place] [address] 43360- 2935 Jun, Chest pain 786.50 and Lumbago 724.2 [facility] [id number] [place] [address] 57787- 7209 Jun, [facility] [id number] [place] [address] 34041- 6698 Jun, [facility] [id number] [place] [address] [id number] Jun, Dental examination V72.2 [facility] [id number] [place] [address] 31159- 9630 Jun, [facility] [id number] [place] [address] 51000- 1183 May, Left shoulder pain 719.41 and Numbness and tingling of both legs 782.0 [facility] [id number] [place] [address] 55841- 2923 May, Cough 786.2 ; Numbness and tingling of both legs 782.0 and Acute rhinitis 460 [facility] [id number] [place] [address] 79471- 3608 May, [facility] [id number] [place] [address] 55435- 4425 Apr, [facility] [id number] [place] [address] 07831- 3018 Apr, Bilateral lower extremity edema 782.3 ; Lumbago 724.2 and Insomnia 780.52 [facility] [id number] [place] [address] 95655- 1156 Apr, [facility] [id number] [place] [address] 18184- 1119 Apr, [facility] [id number] [place] [address] 00623- 2780 March, Seborrheic keratosis 702.19 and Skin lesion of face 709.9 [facility] [id number] [place] [address] 19923- 8729 March, [facility] [id number] [place] [address] 08520- 4564 March, [facility] [id number] [place] [address] 97519- 9574 March, [facility] [id number] [place] [address] 193423- 0835 March, [facility] [id number] [place] [address] 93136- 8421 Feb, [facility] [id number] [place] [address] 56482- 7261 Feb, [facility] [place] [facility] [address] [id number] [place] [address]- 7745 25 Jan, 2015 [facility] [place] [facility] [address] [id number] [place] [address]- 2966 25 Jan, 2015 [facility] [place] [facility] [address] [id number] [place] [address]- 6802 16 Jan, 2015 [facility] [place] [facility] [address] [id number] [place] [address]- 0033 16 Jan, 2015 [facility] [place] [facility] [address] [id number] [place] [address]- 6507 16 Jan, 2015 [facility] [place] [facility] [address] [id number] [place] [address]- 3628 16 Jan, 2015 [facility] [place] [facility] [address] [id number] [place] [address]- 5967 Jan, [facility] [place] [facility] [address] [id number] [place] [address]- 0037 13 Jan, 2015 [facility] [place] [facility] [address] [id number] [place] [address]- 1412 Jan, [facility] [place] [facility] [address] [id number] [place] [address]- 2267 Jan, [facility] [place] [facility] [address] [id number] [place] [address]- 9612 Jan, [facility] [place] [facility] [address] [id number] [address]- 1968 Dec, [facility] [place] [facility] [address] [id number] [place] [address]- 2854 Dec, [facility] [place] [facility] [address] [id number] [place] [address]- 1347 Dec, [facility] [place] [facility] [address] [id number] [place] [address]- 6278 Dec, [facility] [place] [facility] [address] [id number] [place] [address]- 7416 12 Dec, 2014 [facility] [address] [id number] [place] [address]- 4743 Dec, [facility] [address] [id number] [place] [address]- 4320 15 Nov, 2014 [facility] [address] [id number] [place] [address]- 2500 15 Nov, 2014 [facility] [address] [id number] [place] [address]- 8491 Nov, [facility] [address] [id number] [place] [address]- 9212 Nov, [facility] [address] [id number] [place] [address]- 8380 Nov, [facility] [address] [id number] [place] [address]- 1001 Nov, [facility] [address] [id number] [place] [address]- 2050 Nov, [facility] [address] [id number] [place] [address]- 8179 Nov, [facility] [address] [id number] [place] [address]- 3127 Nov, [facility] [address] [id number] [place] [address]- 0382 Nov, [facility] [address] [id number] [place] [address]- 2908 Nov, [facility] [place] [facility] [address] [id number] [place] [address]- 0894 Oct, [facility] [place] [facility] [address] [id number] [place] [address]- 3806 Oct, [facility] [address] [id number] [place] 8508 Oct, [facility] [place] [facility] [address] [id number] [place] [address]- 0941 Oct, [facility] [place] [facility] [address] [id number] [place] [address]- 8368 Oct, [facility] [place] [facility] [address] [id number] [place] [address]- 3117 Oct, [facility] [place] [facility] [address] [id number] [place] [address]- 9051 Oct, [facility] [place] [facility] [address] [id number] [place] [address] Oct, [facility] [place] [facility] [address] [id number] [place] [address] Oct, [facility] [place] [facility] [address] [id number] [place] [address] Oct, [facility] [place] [facility] [address] [id number] [place] [address] Sep, [facility] [place] [facility] [address] [id number] [place] [address] Sep, [facility] [place] [facility] [address] [id number], [place] [address] Sep, [facility] [place] [facility] [address] [id number], [place] [address] Sep, [facility] [place] [facility] [address] [id number], [place] [address] Sep, [facility] [place] [facility] [address] [id number], [place] [address] Sep, [facility] [place] [facility] [address] [id number], [place] [address] Sep, [facility] [place] [facility] [address] [id number], [place] [address] Sep, [facility] [place] [facility] [address] [id number], [place] [address] Sep, [facility] [place] [facility] [address] [id number] [place] [address] 17 Sep, 2014 [facility] [place] [facility] [address] [id number] [place] [address] Sep, [facility] [place] [facility] [address] [id number] [place] [address] Sep, [facility] [place] [facility] [address] [id number] [place] [address] Sep, [facility] [place] [facility] [address] [id number] [place] [address] Aug, [facility] [place] [facility] [address] [id number] [place] [address] Aug, [facility] [place] [facility] [address] [id number] [place] [address] Aug, [facility] [place] [facility] [address] [id number] [place] [address] 30 Aug, 2014 [facility] [place] [facility] [address] [id number] [place] [address] 30 Aug, 2014 [facility] [place] [facility] [address] [facility] [id number] [place] [address] 30 Aug, 2014 [facility] [place] [facility] [address] [id number] [place] [address] Aug, [facility] [place] [facility] [address] [id number], [place] [address] Aug, [facility] [place] [facility] [address] [id number] [place] [address] Aug, [facility] [place] [facility] [address] [facility] [id number], [place] [address] Aug, [facility] [place] [facility] [address] [facility] [id number], [place] [address] Aug, [facility] [place] [facility] [address] [id number] [place] [address] Aug, 2013 [facility] [place] [facility] [address] [id number] [place] [address] Aug, [facility] [facility] [address] [id number] [place] [address] Aug, 2013 [facility] [place] [facility] [address] [id number] [place] [address] Aug, 2013 [facility] [place] [facility] [address] [id number] [place] [address] Aug, [facility] [place] [facility] [address] [id number] [place] [address] Aug, [facility] [place] [facility] [address] [id number] [place] [address] Aug, [facility] [place] [facility] [address] [id number] [place] [address] 30 Sep, 2013 [facility] [place] [facility] [address] [id number] [place] [address] 30 Sep, 2013 [facility] [place] [facility] [address] [id number] [place] [address] 24 Sep, 2013 [facility] [place] [facility] [address] [id number] [place] [address] 24 Sep, 2013 [facility] [place] [facility] [address] [id number] [place] [address] 23 Sep, 2013 [facility] [place] [facility] [address] [id number] [place] [address] 23 Sep, 2013 [facility] [place] [facility] [address] [id number] [place] [address] 15 Sep, 2013 [facility] [place] [facility] [address] [id number] [place] [address] 15 Sep, 2013 [facility] [place] [facility] [address] [id number] [place] [address] Jul, [facility] [address] [facility] [id number], [place] [address] Jul, [facility] [address] [facility] [id number], [place] [address] Jul, [facility] [address] [facility] [place] [id number], [place] [address] Jul, [facility] [address] [facility] [id number], [place] [address] Jul, [facility] [address] [facility] [id number], [place] [address] Jul, IMMUNIZATIONS No Known Immunizations SOCIAL HISTORY Never Assessed REASON FOR VISIT PLAN OF CARE VITAL SIGNS MEDICATIONS Medication Instructions Dosage Frequency Start Date End Date Duration Status Gabapentin 400 MG Orally 3 times a day 2 caps 8h 30 Active RESULTS No Results PROCEDURES [...] History [place]-stent to LAD Surgical History cholecystectomy 1983 Surgical [...] Influenza illness, hyperglycemia 2017 Hospitalization History ED [place]- High BS (Pt left AMA) 01/05/2018 Hospitalization History [facility]- DKA and UTI. Discharged 01/14/2018 Hospitalization History ED [place]- Nausea and Vomiting, cannot urinate 01/18/2018
--- OUTSIDE RECORDS SUMMARY | 2018-07-31 02:43 | XMS REPORT ---
Author Author BURKSMARCELINO Rene [facility] Address [address] [place] [address] Care Team Providers Care Pelts Skinner Name Role Phone MARCELINO BURKS Unavailable PROBLEMS Type Condition ICD9-CM Code LIK69-MY Code Onset Dates Condition Status SNOMED Code Problem Dental caries K02.9 Active 28421283 Problem Primary insomnia F51.01 Active 6568390 Problem Seasonal allergic rhinitis due to pollen J30.1 Active 39211316 Problem Type 2 diabetes mellitus with hyperglycemia E11.65 Active [id number] Problem Hyperlipidemia E78.5 Active 69749197 Problem Cervicalgia M54.2 Active 96014788 Problem Alterations of sensations R20.9 Active 359047428 Problem Other obesity due to excess calories E66.09 Active 443771640 Problem Arthritis M19.90 Active 3473537 Problem Diabetic mononeuropathy associated with type 2 diabetes mellitus E11.41 Active 284539195 Problem Body mass index (BMI) of 33.0-33.9 in adult Z68.33 Active 240457316 Problem GERD (gastroesophageal reflux disease) K21.9 Active 153254316 Problem intermediate 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 Active 630351296 Problem Degenerative disc disease, lumbar M51.36 Active 71773479 Problem Fibromyalgia M79.7 Active 11446463 Problem Tobacco abuse Z72.0 Active 68445046 Problem Tobacco abuse counseling Z71.6 Active 731799701 Problem Essential hypertension I10 Active 83460413 Problem Chronic pain syndrome G89.4 Active 125555862 Problem CAD (coronary artery disease) I25.10 Active 44789837 Problem DM neuro manif type II E11.49 Active 61101561 ALLERGIES No Information ENCOUNTERS Encounter Location Date Diagnosis [facility] [address] [facility] [id number] [address] 07 Jul, 2018 [facility] [address] [id number] [address] Apr, Type 2 diabetes mellitus with hyperglycemia E11.65 [place] [address] 17[address]- 35[address] Apr, Hyperlipidemia E78.5 ; Chronic pain syndrome G89.4 ; Cervicalgia M54.2 ; DM neuro manif type II E11.49 ; 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 ; Nausea alone R11.0 ; Essential hypertension I10 ; GERD ( gastroesophageal reflux disease) K21.9 ; CAD (coronary artery disease) I25.10 and Diabetic mononeuropathy associated with type 2 diabetes mellitus E11.41 [place] [address] [address]- [address] Apr, [place] [address] 89925- 5165 March, Essential hypertension I10 ; DM neuro manif type II E11.49 and GERD (gastroesophageal reflux disease) K21.9 [place] [address] 36269- 6370 March, DM neuro manif type II E11.49 and GERD (gastroesophageal reflux disease) K21.9 [place] [address] [address]- 3101 March, [place] [address] 197[address]- 7515 Feb, Tobacco abuse Z72.0 [place] [address] 16452- 6961 Feb, Tobacco abuse Z72.0 [place] [address] 31259- 3259 Feb, Hypokalemia E87.6 [place] [address] 09502- 7416 Feb, Hyperlipidemia E78.5 ; Essential hypertension I10 ; DM neuro manif type II E11.49 ; Fibromyalgia M79.7 ; Acute non-recurrent frontal sinusitis J01.10 ; Other obesity due to excess calories E66.09 and Body mass index (BMI) of 33.0-33.9 in adult Z68.33 [place] [address] 58952- 7003 05 Jan, 2018 Dysuria R30.0 [place] [address] 58540- 0806 05 Jan, 2018 Dysuria R30.0 [place] [address] 82190- 6590 02 Jan, 2018 Acute cystitis with hematuria N30.01 ; DM neuro manif type II E11.49 ; 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 ; Essential hypertension I10 and Hospital discharge follow-up Z09 [place] [address] 57974- 0598 27 Dec, 2017 Chest pain, unspecified type R07.9 ; Dehydration E86.0 and Anuria R34 [place] [address] 23277- 5885 Dec, [place] [address] 89432- 1300 Dec, Hyperglycemia R73.9 ; Dehydration E86.0 and Acute cystitis with hematuria N30.01 [facility] [address] [place] [address] 54668 -5709 Dec, [facility] [address] [place] [address] 51839 -8286 Dec, [facility] [address] [place] [address] 39064 -8206 Dec, [facility] [address] [place] [address] 34526 -6798 16 Dec, 2017 Dysuria R30.0 ; Acute cystitis with hematuria N30.01 and Weakness R53.[address] 0[address]46- 2438 Dec, [place] [id number] [place] [address] 58171- 5602 Nov, [place] [address] 03285- 1057 Nov, [place] [address] 93220- 2271 Nov, Essential hypertension I10 ; DM neuro manif type II E11.49 ; 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 ; Tobacco abuse Z72.0 ; Hyperlipidemia E78.5 ; Non-adherence to medical treatment Z91.19 ; GERD (gastroesophageal reflux disease) K21.9 ; Degenerative disc disease, lumbar M51.36 ; Fibromyalgia M79.7 ; Chronic pain syndrome G89.4 ; Dental caries K02.9 and Seasonal allergic rhinitis due to pollen J30.[address] 62276- 0367 Nov, Alterations of sensations R20.9 [place] [address] 64074- 4879 Sep, DM neuro manif type II E11.49 ; Hyperlipidemia E78.5 ; Degenerative disc disease, lumbar M51.36 and Chronic pain syndrome G89.4 [place] [id number] [place] [address] 88251- 9065 Sep, Arthritis M19.90 [place] [address] 64040- 9571 Sep, Type 2 diabetes mellitus without complication E11.9 ; GERD ( gastroesophageal reflux disease) K21.9 ; Arthritis M19.90 and Chronic pain syndrome G89.4 [place] [address] 29930- 0968 Sep, [place] [id number] [place] [address] 90796- 7125 Aug, [place] [address] 18526- 4834 18 Aug, 2017 Type 2 diabetes mellitus without complication E11.9 [facility] [address] [address] 8[address] 17 Aug, 2017 [facility] [id number] [place] [address] 95761- 3231 16 Aug, 2017 [facility] [id number] [place] [address] 78411- 2282 Aug, [facility] [id number] [place] [address] 33782- 2636 26 Jul, 2017 [facility] [id number] [place] [address] 98623 -7988 22 Jul, 2017 Acute non-recurrent frontal sinusitis J01.10 [place] [id number] [place] [address] 41356- 1078 20 Jul, 2017 CAD (coronary artery disease) I25.10 and GERD ( gastroesophageal reflux disease) K21.9 [place] [id number] [place] [address] 45162- 6302 14 Jul, 2017 Localized swelling, mass and lump, neck R22.1 [place] [id number] [place] [address] 63144- 5948 06 Jul, 2017 [place] [id number] [place] [address] 38189- 9873 Jun, Type 2 diabetes mellitus without complication E11.9 ; Primary insomnia F51.01 ; Alterations of sensations R20.9 ; Hyperlipidemia E78.5 ; GERD (gastroesophageal reflux disease) K21.9 ; Essential hypertension I10 ; 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 ; Tobacco abuse Z72.0 ; Tobacco abuse counseling Z71.6 and CAD (coronary artery disease) I25.10 [facility] [address] [place] [address] 12491- 1484 May, [place] [id number] [place] [address] 83954- 6244 May, Type 2 diabetes mellitus without complication E11.9 [facility] [address] [place] [address] 79821- 0436 May, [facility] [id number] [place] [address] 91330- 5222 March, [facility] [id number] [place] [address] 91907- 9371 Feb, [facility] [id number] [place] [address] 10909 -7220 Jan, Acute suppurative otitis media of left ear with spontaneous rupture of tympanic membrane, recurrence not specified H66.012 [place] [id number] [place] [address] 59634- 7010 Dec, Type 2 diabetes mellitus without complication E11.9 ; Lumbago M54.5 ; Cervicalgia M54.2 ; Hyperlipidemia E78.5 ; GERD ( gastroesophageal reflux disease) K21.9 ; Chronic pain syndrome G89.4 ; Dysuria R30.0 and Essential hypertension I10 [place] [id number] [place] [address] 82206- 6496 Oct, [place] [id number] [place] [address] 55837- 5722 30 Sep, 2016 Diabetic mononeuropathy associated with type 2 diabetes mellitus E11.41 and Coughing R05 [place] [id number] [place] [address] 80494- 6551 Sep, Diabetic mononeuropathy associated with type 2 diabetes mellitus E11.41 and Coughing R05 [facility] [id number] [place] [address] 52662- 5236 Sep, Onychomycosis B35.1 ; Neuritis M79.2 and Type 2 diabetes mellitus without complication E11.9 [facility] [id number] [place] [address] 05689- 6993 Sep, [facility] [id number] [place] [address] 84994- 5582 Sep, Cough R05 ; Seasonal allergic rhinitis due to pollen J30.1 and Acute upper respiratory infection, unspecified J06.9 [place] [id number] [place] [address] 14349- 1099 Sep, [place] [address] 04660- 2909 Aug, [place] [address] 69810- 0409 Jul, Type 2 diabetes mellitus without complication E11.9 ; Chronic pain G89.29 ; Essential hypertension I10 and Acute non-recurrent maxillary sinusitis J01.00 [place] [address] 69079- 5493 Jul, Chronic pain syndrome G89.4 ; Lumbago M54.5 and Cervicalgia M54.2 [place] [address] 32020- 8512 Jul, [place] [address] 48935- 8616 Jul, [place] [address] 00667- 4672 Jun, Onychomycosis B35.1 ; Onychocryptosis L60.0 and DM neuro manif type II E11.49 [place] [id number] [place] [address] 67971- 5742 Jun, Type 2 diabetes mellitus without complication E11.9 ; Pain in unspecified hip M25.559 ; Other chronic pain G89.29 ; Lumbago M54.5 ; Chronic pain G89.29 ; Insomnia, unspecified G47.00 ; GERD (gastroesophageal reflux disease) K21.9 and Dental caries K02.9 [place] [id number] [place] [address] 74167- 5021 Jun, Type 2 diabetes mellitus without complication E11.9 ; Lumbago M54.5 ; Chronic pain G89.29 ; Insomnia, unspecified G47.00 ; GERD ( gastroesophageal reflux disease) K21.9 ; Dental caries K02.9 ; Pain in unspecified hip M25.559 and Other chronic pain G89.29 [place] [address] 49101- 7628 May, [place] [address] 03983- 2359 May, Type 2 diabetes mellitus without complication E11.9 ; Essential hypertension I10 ; Chronic pain syndrome G89.4 ; Other seasonal allergic rhinitis J30.2 and Insomnia, unspecified G47.00 [place] [address] 23106- 9945 Apr, [address] 80334- 1274 Apr, Hypertension I10 and Chronic pain G89.29 [place] [address] 56715- 6252 March, Onychomycosis B35.1 ; Onychocryptosis L60.0 and Type 2 diabetes mellitus without complication E11.9 [place] [address] 64797- 7407 March, Type 2 diabetes mellitus without complication E11.9 ; Essential hypertension I10 ; Alterations of sensations R20.9 ; Chronic pain syndrome G89.4 ; Tobacco abuse Z72.0 and Tobacco abuse counseling Z71.6 [place] [address] 98349- 3834 Feb, Cough R05 ; Type 2 diabetes mellitus without complication E11.9 ; Tobacco abuse counseling Z71.6 and Chronic pain G89.29 [place] [address] 76402- 4845 Feb, [place] [address] 25093- 0118 Feb, Type 2 diabetes mellitus without complication E11.9 ; Lumbago M54.5 ; Cervicalgia M54.2 ; Degenerative disc disease, lumbar M51.36 and Numbness and tingling of both legs 782.0 [facility] [id number] [place] [address] [id number] Jan, Dental caries K02.9 and Encounter for dental examination Z01.[address] 65314- 7456 Jan, Type 2 diabetes mellitus without complication E11.9 [place] [address] 13892- 5400 Jan, Type 2 diabetes mellitus without complication E11.9 ; Numbness and tingling of both legs 782.0 ; Fibromyalgia M79.7 ; Hyperlipidemia E78.5 ; Lumbago M54.5 ; Cervicalgia M54.2 ; Hypertension I10 ; CAD (coronary artery disease) I25.10 ; Tobacco abuse Z72.0 ; Tobacco abuse counseling Z71.6 and GERD (gastroesophageal reflux disease) K21.[address] 55164- 2062 Jan, [address] 65659- 0388 Dec, [facility] [id number] [place] [address] [id number] Dec, Dental examination Z01.20 and Dental caries K02.[address] 27660- 6641 Dec, Edema R60.9 ; Type 2 diabetes mellitus without complication E11.9 ; Hypertension I10 and Mouth pain K13.[address] 78009- 0354 Dec, Degenerative disc disease, lumbar M51.[address] 44682- 6018 Dec, [address] [place] [address]- 2811 Nov, Insomnia, unspecified G47.00 [place] [address] 95956- 0186 Nov, Type 2 diabetes mellitus without complication E11.9 ; Lumbago M54.5 ; Degenerative disc disease, lumbar M51.36 ; Fibromyalgia M79.7 ; Coronary artery disease I25.10 ; Hyperlipidemia E78.5 ; Controlled substance agreement signed Z79.899 ; Dysuria R30.0 ; Insomnia, unspecified G47.00 ; GERD ( gastroesophageal reflux disease) K21.9 ; Hypertension 401.9 and 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 [place] [address] 85890- 4119 Nov, [place] [address] 34105- 0038 Oct, Degenerative disc disease, lumbar M51.36 ; Cervicalgia M54.2 ; Insomnia, unspecified G47.00 ; Decreased GFR R94.4 and GERD ( gastroesophageal reflux disease) K21.9 [place] [address] 32859- 9428 Oct, Lumbago M54.5 [place] [address] 32190- 0689 Oct, Low back pain M54.5 [place] [address] 47357- 1536 Oct, [place] [address] 93287- 8634 Oct, Disorientation R41.0 [place] [address] 38790- 3580 Oct, Type 2 diabetes mellitus without complication E11.9 ; Disorientation R41.0 and Chest pain R07.9 [place] [address] 73894- 3194 Oct, [facility] [id number] [place] [address] 77984- 5772 Sep, Low back pain M54.5 [facility] [id number] [place] [address] 89549- 0845 Sep, Insomnia, unspecified G47.00 [facility] [id number] [place] [address] 82359- 8128 Aug, Degenerative disc disease, lumbar M51.36 ; Type 2 diabetes mellitus without complication E11.9 and Encounter for immunization Z23 [facility] [id number] [place] [address] 20150- 4241 Aug, [facility] [id number] [place] [address] 99371- 1962 Aug, [facility] [id number] [place] [address] 39517- 1647 Aug, [facility] [id number] [place] [address] 80317- 7078 Jul, [facility] [id number] [place] [address] 74867- 4236 Jun, [facility] [id number] [place] [address] 16995- 2791 Jun, Chest pain 786.50 and Lumbago 724.2 [facility] [id number] [place] [address] 35436- 1490 Jun, [facility] [id number] [place] [address] 23693- 8251 Jun, [facility] [id number] [place] [address] [id number] Jun, Dental examination V72.2 [facility] [id number] [place] [address] 54586- 7181 Jun, [facility] [id number] [place] [address] 93157- 5759 May, Left shoulder pain 719.41 and Numbness and tingling of both legs 782.0 [facility] [id number] [place] [address] 71179- 1299 May, Cough 786.2 ; Numbness and tingling of both legs 782.0 and Acute rhinitis 460 [facility] [id number] [place] [address] 08591- 0749 May, [facility] [id number] [place] [address] 55342- 4997 Apr, [facility] [id number] [place] [address] 28978- 0028 Apr, Bilateral lower extremity edema 782.3 ; Lumbago 724.2 and Insomnia 780.52 [facility] [id number] [place] [address] 21887- 9709 Apr, [facility] [id number] [place] [address] 31897- 6073 Apr, [facility] [id number] [place] [address] 68410- 7385 March, Seborrheic keratosis 702.19 and Skin lesion of face 709.9 [facility] [id number] [place] [address] 83992- 5657 March, [facility] [id number] [place] [address] 31140- 0609 March, [facility] [id number] [place] [address] 70701- 7759 March, [facility] [id number] [place] [address] 124263- 9274 March, [facility] [id number] [place] [address] 83373- 6508 Feb, [facility] [id number] [place] [address] 31856- 7451 Feb, [facility] [place] [facility] [address] [id number] [place] [address]- 2274 25 Jan, 2015 [facility] [place] [facility] [address] [id number] [place] [address]- 1787 25 Jan, 2015 [facility] [place] [facility] [address] [id number] [place] [address]- 2075 16 Jan, 2015 [facility] [place] [facility] [address] [id number] [place] [address]- 7615 16 Jan, 2015 [facility] [place] [facility] [address] [id number] [place] [address]- 0123 16 Jan, 2015 [facility] [place] [facility] [address] [id number] [place] [address]- 8287 16 Jan, 2015 [facility] [place] [facility] [address] [id number] [place] [address]- 9821 Jan, [facility] [place] [facility] [address] [id number] [place] [address]- 8866 13 Jan, 2015 [facility] [place] [facility] [address] [id number] [place] [address]- 7839 Jan, [facility] [place] [facility] [address] [id number] [place] [address]- 9591 Jan, [facility] [place] [facility] [address] [id number] [place] [address]- 1333 Jan, [facility] [place] [facility] [address] [id number] [address]- 1171 Dec, [facility] [place] [facility] [address] [id number] [place] [address]- 5916 Dec, [facility] [place] [facility] [address] [id number] [place] [address]- 1642 Dec, [facility] [place] [facility] [address] [id number] [place] [address]- 5540 Dec, [facility] [place] [facility] [address] [id number] [place] [address]- 4689 12 Dec, 2014 [facility] [address] [id number] [place] [address]- 4401 Dec, [facility] [address] [id number] [place] [address]- 4248 15 Nov, 2014 [facility] [address] [id number] [place] [address]- 7473 15 Nov, 2014 [facility] [address] [id number] [place] [address]- 9867 Nov, [facility] [address] [id number] [place] [address]- 7457 Nov, [facility] [address] [id number] [place] [address]- 9270 Nov, [facility] [address] [id number] [place] [address]- 3453 Nov, [facility] [address] [id number] [place] [address]- 5394 Nov, [facility] [address] [id number] [place] [address]- 0758 Nov, [facility] [address] [id number] [place] [address]- 6458 Nov, [facility] [address] [id number] [place] [address]- 1127 Nov, [facility] [address] [id number] [place] [address]- 4654 Nov, [facility] [place] [facility] [address] [id number] [place] [address]- 2392 Oct, [facility] [place] [facility] [address] [id number] [place] [address]- 4706 Oct, [facility] [address] [id number] [place] 5602 Oct, [facility] [place] [facility] [address] [id number] [place] [address]- 2145 Oct, [facility] [place] [facility] [address] [id number] [place] [address]- 4035 Oct, [facility] [place] [facility] [address] [id number] [place] [address]- 6732 Oct, [facility] [place] [facility] [address] [id number] [place] [address]- 5861 Oct, [facility] [place] [facility] [address] [id number] [place] [address]- 0602 Oct, [facility] [place] [facility] [address] [id number] [place] [address]- 5462 Oct, [facility] [place] [facility] [address] [id number] [place] [address] Oct, [facility] [place] [facility] [address] [id number] [place] [address] Sep, [facility] [place] [facility] [address] [id number] [place] [address] Sep, [facility] [place] [facility] [address] [id number], [place] [address] Sep, [facility] [place] [facility] [address] [id number], [place] [address] Sep, [facility] [place] [facility] [address] [id number], [place] [address] Sep, [facility] [place] [facility] [address] [id number], [place] [address] Sep, [facility] [place] [facility] [address] [id number], [place] [address] Sep, [facility] [place] [facility] [address] [id number], [place] [address] Sep, [facility] [place] [facility] [address] [id number], [place] [address] Sep, [facility] [place] [facility] [address] [id number] [place] [address] 17 Sep, 2014 [facility] [place] [facility] [address] [id number] [place] [address] Sep, [facility] [place] [facility] [address] [id number] [place] [address] Sep, [facility] [place] [facility] [address] [id number] [place] [address] Sep, [facility] [place] [facility] [address] [id number] [place] [address] Aug, [facility] [place] [facility] [address] [id number] [place] [address] Aug, [facility] [place] [facility] [address] [id number] [place] [address] Aug, [facility] [place] [facility] [address] [id number] [place] [address] 30 Aug, 2014 [facility] [place] [facility] [address] [id number] [place] [address] 30 Aug, 2014 [facility] [place] [facility] [address] [facility] [id number] [place] [address] 30 Aug, 2014 [facility] [place] [facility] [address] [id number] [place] [address] Aug, [facility] [place] [facility] [address] [id number], [place] [address] Aug, [facility] [place] [facility] [address] [id number] [place] [address] Aug, [facility] [place] [facility] [address] [facility] [id number] [address] Aug, [facility] [place] [facility] [address] [facility] [id number][place] [address] Aug, [facility] [place] [facility] [address] [id number] [place] [address] Aug, 2013 [facility] [place] [facility] [address] [id number] [place] [address] Aug, [facility] [place] [facility] [address] [id number] [place] [address] Aug, 2013 [facility] [place] [facility] [address] [id number] [place] [address] Aug, 2013 [facility] [place] [facility] [address] [id number] [place] [address] Aug, [facility] [place] [facility] [address] [id number] [place] [address] Aug, [facility] [place] [facility] [address] [id number] [place] [address] Aug, [facility] [place] [facility] [address] [id number] [place] [address] 30 Sep, 2013 [facility] [place] [facility] [address] [id number] [place] [address] 254 30 Sep, 2013 [facility] [place] [facility] [address] [id number] [place] [address] 24 Sep, 2013 [facility] [place] [facility] [address] [id number] [place] [address] 24 Sep, 2013 [facility] [place] [facility] [address] [id number] [place] [address] 23 Sep, 2013 [facility] [place] [facility] [address] [id number] [place] [address] 23 Sep, 2013 [facility] [place] [facility] [address] [id number] [place] [address] 15 Sep, 2013 [facility] [place] [facility] [address] [id number] [place] [address] 15 Sep, 2013 [facility] [place] [facility] [address] [id number] [place] [address] Jul, [facility] [address] [facility] [id number], [place] [address] Jul, [facility] [address] [facility] [id number][place] [address] Jul, [facility] [address] [facility] [id number][place] [address] Jul, [facility] [address] [facility] [id number][place] [address] Jul, [facility] [address] [facility] [id number], [place] [address] Jul, IMMUNIZATIONS No Known Immunizations SOCIAL HISTORY Never Assessed REASON FOR VISIT Refill request PLAN OF CARE VITAL SIGNS MEDICATIONS Medication Instructions Dosage Frequency Start Date End Date Duration Status Varenicline Tartrate 1 MG Orally Twice a day take 1/2 tab daily on days 1-3, then 1/2 tab twice daily on day 4-6, then 1 tablet twice daily 12h 18 Nov, 2017 30 day(s) Active RESULTS No Results PROCEDURES No [...] History OR-stent to LAD Surgical History cholecystectomy 1984 Surgical [...] Influenza illness, hyperglycemia 2017 Hospitalization History [facility]- [facility] BS (Pt left AMA) 01/05/2018 Hospitalization History [facility]- DKA and UTI. Discharged 01/14/2018 Hospitalization History [facility]- Nausea and Vomiting, cannot urinate 01/18/2018
--- OUTSIDE RECORDS SUMMARY | 2018-07-31 02:43 | XMS REPORT ---
Author Author BURKSMARCELINO Rene [facility] Address [address] [place] [address] Care Team Providers [employer] Supervisor Name Role Phone MARCELINO BURKS Unavailable PROBLEMS Type Condition ICD9-CM Code XRO92-BO Code Onset Dates Condition Status SNOMED Code Problem Dental caries K02.9 Active 85145649 Problem Primary insomnia F51.01 Active 0298686 Problem Seasonal allergic rhinitis due to pollen J30.1 Active 27464987 Problem Type 2 diabetes mellitus with hyperglycemia E11.65 Active [id number] Problem Hyperlipidemia E78.5 Active 58957895 Problem Cervicalgia M54.2 Active 49274939 Problem Alterations of sensations R20.9 Active 215248365 Problem Other obesity due to excess calories E66.09 Active 241409637 Problem Arthritis M19.90 Active 9914393 Problem Diabetic mononeuropathy associated with type 2 diabetes mellitus E11.41 Active 488535575 Problem Body mass index (BMI) of 33.0-33.9 in adult Z68.33 Active 841482105 Problem GERD (gastroesophageal reflux disease) K21.9 Active 886246242 Problem retirement 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 Active 145953951 Problem Degenerative disc disease, lumbar M51.36 Active 65472226 Problem Fibromyalgia M79.7 Active 63290934 Problem Tobacco abuse Z72.0 Active 96978711 Problem Tobacco abuse counseling Z71.6 Active 783543242 Problem Essential hypertension I10 Active 02997464 Problem Chronic pain syndrome G89.4 Active 754974242 Problem CAD (coronary artery disease) I25.10 Active 90459205 Problem DM neuro manif type II E11.49 Active 31707431 ALLERGIES No Information ENCOUNTERS Encounter Location Date Diagnosis [facility] [address] [facility] [id number] [address] 07 Jul, 2018 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 ; Nausea alone R11.0 ; Essential hypertension I10 ; GERD ( gastroesophageal reflux disease) K21.9 ; CAD (coronary artery disease) I25.10 and Diabetic mononeuropathy associated with type 2 diabetes mellitus E11.41 [place] [address] 16586- 6468 Apr, [place] [address] 73178- 0828 March, Essential hypertension I10 ; DM neuro manif type II E11.49 and GERD (gastroesophageal reflux disease) K21.9 [place] [address] 65837- 9935 March, DM neuro manif type II E11.49 and GERD (gastroesophageal reflux disease) K21.9 [place] [address] 28648- 4744 March, [place] [address] 86323- 8115 Feb, Tobacco abuse Z72.0 [place] [address] 45202- 0058 Feb, Tobacco abuse Z72.0 [place] [address] 40398- 5519 Feb, Hypokalemia E87.6 [place] [address] 25537- 9041 Feb, Hyperlipidemia E78.5 ; Essential hypertension I10 ; DM neuro manif type II E11.49 ; Fibromyalgia M79.7 ; Acute non-recurrent frontal sinusitis J01.10 ; Other obesity due to excess calories E66.09 and Body mass index (BMI) of 33.0-33.9 in adult Z68.33 [place] [address] 22812- 3886 05 Jan, 2018 Dysuria R30.0 [place] [address] 34442- 2658 05 Jan, 2018 Dysuria R30.0 [place] [address] 69977- 4461 02 Jan, 2018 Acute cystitis with hematuria N30.01 ; DM neuro manif type II E11.49 ; 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 ; Essential hypertension I10 and Hospital discharge follow-up Z09 [place] [address] 28663- 5819 27 Dec, 2017 Chest pain, unspecified type R07.9 ; Dehydration E86.0 and Anuria R34 [place] [address] 24516- 8714 Dec, [place] [address] 45744- 9599 Dec, Hyperglycemia R73.9 ; Dehydration E86.0 and Acute cystitis with hematuria N30.01 [facility] [address] [place] [address] 74291 -4266 Dec, [facility] [address] [place] [address] 51755 -4366 Dec, [facility] [address] [place] [address] 76768 -0071 Dec, [facility] [address] [place] [address] 73346 -8066 16 Dec, 2017 Dysuria R30.0 ; Acute cystitis with hematuria N30.01 and Weakness R53.[address] 94265- 5940 Dec, [place] [id number] [place] [address] 98323- 5948 Nov, [place] [address] 94284- 5866 Nov, [place] [address] 49451- 5986 Nov, Essential hypertension I10 ; DM neuro manif type II E11.49 ; 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 ; Tobacco abuse Z72.0 ; Hyperlipidemia E78.5 ; Non-adherence to medical treatment Z91.19 ; GERD (gastroesophageal reflux disease) K21.9 ; Degenerative disc disease, lumbar M51.36 ; Fibromyalgia M79.7 ; Chronic pain syndrome G89.4 ; Dental caries K02.9 and Seasonal allergic rhinitis due to pollen J30.[address] 02497- 1229 Nov, Alterations of sensations R20.9 [place] [address] 89477- 1556 Sep, DM neuro manif type II E11.49 ; Hyperlipidemia E78.5 ; Degenerative disc disease, lumbar M51.36 and Chronic pain syndrome G89.4 [place] [id number] [place] [address] 10252- 1859 Sep, Arthritis M19.90 [place] [address] 67563- 4691 Sep, Type 2 diabetes mellitus without complication E11.9 ; GERD ( gastroesophageal reflux disease) K21.9 ; Arthritis M19.90 and Chronic pain syndrome G89.4 [place] [address] 11539- 4852 Sep, [place] [id number] [place] [address] 48759- 5904 Aug, [place] [address] 76510- 0567 18 Aug, 2017 Type 2 diabetes mellitus without complication E11.9 [facility] [address] [address] 17 Aug, 2017 [facility] [id number] [place] [address] 51014- 1580 16 Aug, 2017 [facility] [id number] [place] [address] 43877- 7514 Aug, [facility] [address] [id number] [place] [address] 26552- 7481 26 Jul, 2017 [facility] [id number] [place] [address] 07560 -1909 22 Jul, 2017 Acute non-recurrent frontal sinusitis J01.10 [place] [address] [id number] [place] [address] 49803- 0395 20 Jul, 2017 CAD (coronary artery disease) I25.10 and GERD ( gastroesophageal reflux disease) K21.9 [place] [id number] [place] [address] 54041- 3726 14 Jul, 2017 Localized swelling, mass and lump, neck R22.1 [place] [address] [id number] [place] [address] 08390- 5325 06 Jul, 2017 [place] [address] [address] [id number] [place] [address] 53714- 7445 Jun, Type 2 diabetes mellitus without complication E11.9 ; Primary insomnia F51.01 ; Alterations of sensations R20.9 ; Hyperlipidemia E78.5 ; GERD (gastroesophageal reflux disease) K21.9 ; 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 [address] [place] [address] 93901- 6029 May, [place] [id number] [place] [address] 67540- 6657 May, Type 2 diabetes mellitus without complication E11.9 [facility] [address] [place] [address] 72933- 3487 May, [facility] [id number] [place] [address] 07835- 6577 March, [facility] [id number] [place] [address] 05308- 7612 Feb, [facility] [id number] [place] [address] 03186 -8720 Jan, Acute suppurative otitis media of left ear with spontaneous rupture of tympanic membrane, recurrence not specified H66.012 [place] [id number] [place] [address] 26513- 2294 Dec, Type 2 diabetes mellitus without complication E11.9 ; Lumbago M54.5 ; Cervicalgia M54.2 ; Hyperlipidemia E78.5 ; GERD ( gastroesophageal reflux disease) K21.9 ; Chronic pain syndrome G89.4 ; Dysuria R30.0 and Essential hypertension I10 [place] [id number] [place] [address] 31746- 2179 Oct, [place] [id number] [place] [address] 60601- 5585 30 Sep, 2016 Diabetic mononeuropathy associated with type 2 diabetes mellitus E11.41 and Coughing R05 [place] [id number] [place] [address] 23377- 5239 Sep, Diabetic mononeuropathy associated with type 2 diabetes mellitus E11.[address] [facility] [id number] [place] [address] 82816- 7320 Sep, Onychomycosis B35.1 ; Neuritis M79.2 and Type 2 diabetes mellitus without complication E11.9 [facility] [id number] [place] [address] 94992- 5312 Sep, [facility] [id number] [place] [address] 31923- 7131 Sep, Cough R05 ; Seasonal allergic rhinitis due to pollen J30.1 and Acute upper respiratory infection, unspecified J06.9 [place] [id number] [place] [address] 82534- 2677 Sep, [place] [address] 33587- 8862 Aug, [place] [address] 80535- 9077 Jul, Type 2 diabetes mellitus without complication E11.9 ; Chronic pain G89.29 ; Essential hypertension I10 and Acute non-recurrent maxillary sinusitis J01.00 [place] [address] 27339- 7898 Jul, Chronic pain syndrome G89.4 ; Lumbago M54.5 and Cervicalgia M54.2 [place] [address] 80232- 6620 Jul, [place] [address] 91426- 1509 Jul, [place] [address] 23322- 5183 Jun, Onychomycosis B35.1 ; Onychocryptosis L60.0 and DM neuro manif type II E11.49 [place] [id number] [place] [address] 77395- 2397 Jun, Type 2 diabetes mellitus without complication E11.9 ; Pain in unspecified hip M25.559 ; Other chronic pain G89.29 ; Lumbago M54.5 ; Chronic pain G89.29 ; Insomnia, unspecified G47.00 ; GERD (gastroesophageal reflux disease) K21.9 and Dental caries K02.9 [place] [id number] [place] [address] 77097- 3069 Jun, Type 2 diabetes mellitus without complication E11.9 ; Lumbago M54.5 ; Chronic pain G89.29 ; Insomnia, unspecified G47.00 ; GERD ( gastroesophageal reflux disease) K21.9 ; Dental caries K02.9 ; Pain in unspecified hip M25.559 and Other chronic pain G89.29 [place] [address] 24680- 5210 May, [place] [address] 77446- 3777 May, Type 2 diabetes mellitus without complication E11.9 ; Essential hypertension I10 ; Chronic pain syndrome G89.4 ; Other seasonal allergic rhinitis J30.2 and Insomnia, unspecified G47.00 [place] [address] 36021- 8655 Apr, [address] 30963- 5453 Apr, Hypertension I10 and Chronic pain G89.29 [place] [address] 97225- 9371 March, Onychomycosis B35.1 ; Onychocryptosis L60.0 and Type 2 diabetes mellitus without complication E11.9 [place] [address] 43901- 0589 March, Type 2 diabetes mellitus without complication E11.9 ; Essential hypertension I10 ; Alterations of sensations R20.9 ; Chronic pain syndrome G89.4 ; Tobacco abuse Z72.0 and Tobacco abuse counseling Z71.6 [place] [address] 20475- 1003 Feb, Cough R05 ; Type 2 diabetes mellitus without complication E11.9 ; Tobacco abuse counseling Z71.6 and Chronic pain G89.29 [place] [address] 77496- 8653 Feb, [place] [address] 66259- 0456 Feb, Type 2 diabetes mellitus without complication E11.9 ; Lumbago M54.5 ; Cervicalgia M54.2 ; Degenerative disc disease, lumbar M51.36 and Numbness and tingling of both legs 782.0 [facility] [id number] [place] [address] [id number] Jan, Dental caries K02.9 and Encounter for dental examination Z01.[address] 15577- 3093 Jan, Type 2 diabetes mellitus without complication E11.9 [place] [address] 95009- 3754 Jan, Type 2 diabetes mellitus without complication E11.9 ; Numbness and tingling of both legs 782.0 ; Fibromyalgia M79.7 ; Hyperlipidemia E78.5 ; Lumbago M54.5 ; Cervicalgia M54.2 ; Hypertension I10 ; CAD (coronary artery disease) I25.10 ; Tobacco abuse Z72.0 ; Tobacco abuse counseling Z71.6 and GERD (gastroesophageal reflux disease) K21.[address] 40422- 2033 Jan, [address] 45175- 1871 Dec, [facility] [id number] [place] [address] [id number] Dec, Dental examination Z01.20 and Dental caries K02.[address] 70288- 9178 Dec, Edema R60.9 ; Type 2 diabetes mellitus without complication E11.9 ; Hypertension I10 and Mouth pain K13.[address] 29920- 8341 Dec, Degenerative disc disease, lumbar M51.[address] 93368- 6898 Dec, [address] [place] [address]- 2552 Nov, Insomnia, unspecified G47.00 [place] [address] 29476- 7070 Nov, Type 2 diabetes mellitus without complication E11.9 ; Lumbago M54.5 ; Degenerative disc disease, lumbar M51.36 ; Fibromyalgia M79.7 ; Coronary artery disease I25.10 ; Hyperlipidemia E78.5 ; Controlled substance agreement signed Z79.899 ; Dysuria R30.0 ; Insomnia, unspecified G47.00 ; GERD ( gastroesophageal reflux disease) K21.9 ; Hypertension 401.9 and 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 [place] [address] 94569- 3641 Nov, [place] [address] 34561- 5891 Oct, Degenerative disc disease, lumbar M51.36 ; Cervicalgia M54.2 ; Insomnia, unspecified G47.00 ; Decreased GFR R94.4 and GERD ( gastroesophageal reflux disease) K21.9 [place] [address] 87569- 8945 Oct, Lumbago M54.5 [place] [address] 44259- 5129 Oct, Low back pain M54.5 [place] [address] 15656- 6146 Oct, [place] [address] 51024- 5396 Oct, Disorientation R41.0 [place] [address] 36414- 3649 Oct, Type 2 diabetes mellitus without complication E11.9 ; Disorientation R41.0 and Chest pain R07.9 [place] [address] 32334- 7221 Oct, [facility] [id number] [place] [address] 97670- 2782 Sep, Low back pain M54.5 [facility] [id number] [place] [address] 38354- 1962 Sep, Insomnia, unspecified G47.00 [facility] [id number] [place] [address] 01539- 4842 Aug, Degenerative disc disease, lumbar M51.36 ; Type 2 diabetes mellitus without complication E11.9 and Encounter for immunization Z23 [facility] [id number] [place] [address] 63033- 7209 Aug, [facility] [id number] [place] [address] 51536- 6670 Aug, [facility] [id number] [place] [address] 20756- 1240 Aug, [facility] [id number] [place] [address] 75159- 7443 Jul, [facility] [id number] [place] [address] 28465- 6490 Jun, [facility] [id number] [place] [address] 97404- 4925 Jun, Chest pain 786.[address] [facility] [id number] [place] [address] 37370- 8399 Jun, [facility] [id number] [place] [address] 33241- 3908 Jun, [facility] [id number] [place] [address] [id number] Jun, Dental examination V72.2 [facility] [id number] [place] [address] 73242- 8878 Jun, [facility] [id number] [place] [address] 53098- 0378 May, Left shoulder pain 719.41 and Numbness and tingling of both legs 782.0 [facility] [id number] [place] [address] 71551- 8922 May, Cough 786.2 ; Numbness and tingling of both legs 782.0 and Acute rhinitis 460 [facility] [id number] [place] [address] 91322- 7926 May, [facility] [id number] [place] [address] 92547- 3585 Apr, [facility] [id number] [place] [address] 65755- 9145 Apr, Bilateral lower extremity edema 782.3 ; Lumbago 724.[address] [facility] [id number] [place] [address] 98471- 5703 Apr, [facility] [id number] [place] [address] 95781- 4716 Apr, [facility] [address] [place] [address] 64756- 6212 March, Seborrheic keratosis 702.19 and Skin lesion of face 709.9 [facility] [id number] [place] [address] 22511- 4484 March, [facility] [id number] [place] [address] 26570- 1949 March, [facility] [id number] [place] [address] 67660- 1876 March, [facility] [id number] [place] [address] 659078- 4426 March, [facility] [id number] [place] [address] 51612- 8959 Feb, [facility] [id number] [place] [address] 24266- 9315 Feb, [facility] [place] [facility] [address] [id number] [place] [address]- 0697 25 Jan, 2015 [facility] [place] [facility] [address] [id number] [place] [address]- 5956 25 Jan, 2015 [facility] [place] [facility] [address] [id number] [place] [address]- 0660 16 Jan, 2015 [facility] [place] [facility] [address] [id number] [place] [address]- 6682 16 Jan, 2015 [facility] [place] [facility] [address] [id number] [place] [address]- 7195 16 Jan, 2015 [facility] [place] [facility] [address] [id number] [place] [address]- 6209 16 Jan, 2015 [facility] [place] [facility] [address] [id number] [place] [address]- 8362 Jan, [facility] [place] [facility] [address] [id number] [place] [address]- 9727 13 Jan, 2015 [facility] [place] [facility] [address] [id number] [place] [address]- 2264 Jan, [facility] [place] [facility] [address] [id number] [place] [address]- 4722 Jan, [facility] [place] [facility] [address] [id number] [place] [address]- 2130 Jan, [facility] [place] [facility] [address] [id number], [place] [address]- 1815 Dec, [facility] [place] [facility] [address] [id number] [place] [address]- 9453 Dec, [facility] [place] [facility] [address] [id number] [place] [address]- 9142 Dec, [facility] [place] [facility] [address] [id number] [place] [address]- 9770 Dec, [facility] [place] [facility] [address] [id number] [place] [address]- 7736 12 Dec, 2014 [facility] [address] [id number] [place] [address]- 0002 Dec, [facility] [address] [id number] [place] [address]- 0750 15 Nov, 2014 [facility] [address] [id number] [place] [address]- 7146 15 Nov, 2014 [facility] [address] [id number] [place] [address]- 3672 Nov, [facility] [address] [id number] [place] [address]- 0643 Nov, [facility] [address] [id number] [place] [address]- 5110 Nov, [facility] [address] [id number] [place] [address]- 3986 Nov, [facility] [address] [id number] [place] [address]- 2297 Nov, [facility] [address] [id number] [place] [address]- 8491 Nov, [facility] [address] [id number] [place] [address]- 4520 Nov, [facility] [address] [id number] [place] [address]- 3790 Nov, [facility] [address] [id number] [place] [address]- 9763 Nov, [facility] [place] [facility] [address] [id number] [place] [address]- 0304 Oct, [facility] [place] [facility] [address] [id number] [place] [address]- 4256 Oct, [facility] [address] [id number] [place] 2137 Oct, [facility] [place] [facility] [address] [id number] [place] [address]- 6818 Oct, [facility] [place] [facility] [address] [id number] [place] [address]- 9101 Oct, [facility] [place] [facility] [address] [id number] [place] [address]- 6878 Oct, [facility] [place] [facility] [address] [id number] [place] [address]- 1859 Oct, [facility] [place] [facility] [address] [id number] [place] [address]- 1682 Oct, [facility] [place] [facility] [address] [id number] [place] [address]- 3774 Oct, [facility] [place] [facility] [address] [id number] [place] [address]- 1494 Oct, [facility] [place] [facility] [address] [id number] [place] [address]- 4859 Sep, [facility] [place] [facility] [address] [id number] [place] [address]- 6179 Sep, [facility] [place] [facility] [address] [id number], [place] [address] Sep, [facility] [place] [facility] [address] [id number], [place] [address] Sep, [facility] [place] [facility] [address] [id number], [place] [address] Sep, [facility] [place] [facility] [address] [id number], [place] [address] Sep, [facility] [place] [facility] [address] [id number], [place] [address] Sep, [facility] [place] [facility] [address] [id number], [place] [address] Sep, [facility] [place] [facility] [address] [id number], [place] [address] Sep, [facility] [place] [facility] [address] [id number] [place] [address] 17 Sep, 2014 [facility] [place] [facility] [address] [id number] [place] [address] Sep, [facility] [place] [facility] [address] [id number] [place] [address] Sep, [facility] [place] [facility] [address] [id number] [place] [address] Sep, [facility] [place] [facility] [address] [id number] [place] [address] Aug, [facility] [place] [facility] [address] [id number] [place] [address] Aug, [facility] [place] [facility] [address] [id number] [place] [address] Aug, [facility] [place] [facility] [address] [id number] [place] [address] 30 Aug, 2014 [facility] [place] [facility] [address] [id number] [place] [address] 30 Aug, 2014 [facility] [place] [facility] [address] [facility] [id number] [place] [address] 30 Aug, 2014 [facility] [place] [facility] [address] [id number] [place] [address] Aug, [facility] [place] [facility] [address] [id number], [place] [address] Aug, [facility] [place] [facility] [address] [id number] [place] [address] Aug, [facility] [place] [facility] [address] [facility] [id number], [place] [address] Aug, [facility] [place] [facility] [address] [facility] [id number], [place] [address] Aug, [facility] [place] [facility] [address] [id number] [place] [address] Aug, 2013 [facility] [place] [facility] [address] [id number] [place] [address] Aug, [facility] [place] [facility] [address] [id number] [place] [address] Aug, 2013 [facility] [place] [facility] [address] [id number] [place] [address] Aug, 2013 [facility] [place] [facility] [address] [id number] [place] [address] Aug, [facility] [place] [facility] [address] [id number] [place] [address] Aug, [facility] [place] [facility] [address] [id number] [place] [address] Aug, [facility] [place] [facility] [address] [id number] [place] [address] 30 Sep, 2013 [facility] [place] [facility] [address] [id number] [place] [address] 30 Sep, 2013 [facility] [place] [facility] [address] [id number] [place] [address] 24 Sep, 2013 [facility] [place] [facility] [address] [id number] [place] [address] 24 Sep, 2013 [facility] [place] [facility] [address] [id number] [place] [address] 23 Sep, 2013 [facility] [place] [facility] [address] [id number] [place] [address] 23 Sep, 2013 [facility] [place] [facility] [address] [id number] [place] [address] 15 Sep, 2013 [facility] [place] [facility] [address] [id number] [place] [address] 15 Sep, 2013 [facility] [place] [facility] [address] [id number] [place] [address] Jul, [facility] [address] [facility] [id number] [address] Jul, [facility] [address] [facility] [id number], [place] [address] Jul, [facility] [address] [facility] [id number], [place] [address] Jul, [facility] [address] [facility] [id number], [place] [address] Jul, [facility] [address] [facility] [id number], [place] [address] Jul, IMMUNIZATIONS No Known Immunizations SOCIAL HISTORY Never Assessed REASON FOR VISIT Refill request PLAN OF CARE VITAL SIGNS MEDICATIONS Medication Instructions Dosage Frequency Start Date End Date Duration Status Varenicline Tartrate 1 mg Orally Twice a day take 1/2 tab [...] r/t DDD Medical History fibromyalgia Medical History [place]-stent [place] Surgical History cholecystectomy 1984 Surgical [...] Influenza illness, hyperglycemia 2017 Hospitalization History [facility]- High BS (Pt left AMA) 01/05/2018 Hospitalization History [facility]- DKA and UTI. Discharged 01/14/2018 Hospitalization History [facility]- Nausea and Vomiting, cannot urinate 01/18/2018
--- OUTSIDE RECORDS SUMMARY | 2018-07-31 02:44 | XMS REPORT ---
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 Name Role Phone MARCELINO BURKS Unavailable PROBLEMS Type Condition ICD9-CM Code UIF71-LY Code Onset Dates Condition Status SNOMED Code Problem Dental caries K02.9 Active 70348489 Problem Primary insomnia F51.01 Active 0915399 Problem Seasonal allergic rhinitis due to pollen J30.1 Active 53896591 Problem Type 2 diabetes mellitus with hyperglycemia E11.65 Active [id number] Problem Hyperlipidemia E78.5 Active 84598556 Problem Cervicalgia M54.2 Active 34924600 Problem Alterations of sensations R20.9 Active 319297368 Problem Other obesity due to excess calories E66.09 Active 993718689 Problem Arthritis M19.90 Active 2460525 Problem Diabetic mononeuropathy associated with type 2 diabetes mellitus E11.41 Active 883764285 Problem Body mass index (BMI) of 33.0-33.9 in adult Z68.33 Active 231598893 Problem GERD (gastroesophageal reflux disease) K21.9 Active 745417025 Problem shelter 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 Active 443332018 Problem Degenerative disc disease, lumbar M51.36 Active 64776845 Problem Fibromyalgia M79.7 Active 24024080 Problem Tobacco abuse Z72.0 Active 92301543 Problem Tobacco abuse counseling Z71.6 Active 916026120 Problem Essential hypertension I10 Active 47305306 Problem Chronic pain syndrome G89.4 Active 123984465 Problem CAD (coronary artery disease) I25.10 Active 55578154 Problem DM neuro manif type II E11.49 Active 71350887 ALLERGIES Substance Reaction Event Type Date Status Zofran Unknown Drug Allergy Feb, Active Reglan restless leg; anything in reglan family Drug Allergy Feb, Active Toradol Unknown Drug Allergy Feb, Active LATEX Unknown Non Drug Allergy Feb, Active ENCOUNTERS Encounter Location Date Diagnosis [place] [id number] [id number] [place] [address] 12620- 8151 Jul, [place] [address] 31483- 6447 Apr, Type 2 diabetes mellitus with hyperglycemia E11.65 [place] [address] 42564- 7464 14 Apr, 2018 Hyperlipidemia E78.5 ; Chronic pain syndrome G89.4 ; Cervicalgia M54.2 ; DM neuro manif type II E11.49 ; shelter 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 ; Nausea alone R11.0 ; Essential hypertension I10 ; GERD ( gastroesophageal reflux disease) K21.9 ; CAD (coronary artery disease) I25.10 and Diabetic mononeuropathy associated with type 2 diabetes mellitus E11.41 [place] [address] 90964- 8839 Apr, [place] [address] 57200- 4103 March, Essential hypertension I10 ; DM neuro manif type II E11.49 and GERD (gastroesophageal reflux disease) K21.9 [place] [address] 00054- 9705 March, DM neuro manif type II E11.49 and GERD (gastroesophageal reflux disease) K21.9 [place] [id number] [place] [address] 44922- 3101 March, [place] [address] 55407- 4266 Feb, Tobacco abuse Z72.0 [place] [address] 51762- 5475 Feb, Tobacco abuse Z72.0 [place] [address] 85873- 8696 Feb, Hypokalemia E87.6 [place] [address] 44606- 4670 05 Feb, 2018 Hyperlipidemia E78.5 ; Essential hypertension I10 ; DM neuro manif type II E11.49 ; Fibromyalgia M79.7 ; Acute non-recurrent frontal sinusitis J01.10 ; Other obesity due to excess calories E66.09 and Body mass index (BMI) of 33.0-33.9 in adult Z68.33 [place] [address] 77370- 7789 05 Jan, 2018 Dysuria R30.0 [place] [address] 54768- 6067 05 Jan, 2018 Dysuria R30.[address] 48486- 4581 02 Jan, 2018 Acute cystitis with hematuria N30.01 ; DM neuro manif type II E11.49 ; shelter 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 ; Essential hypertension I10 and Hospital discharge follow-up Z09 [place] [address] 77763- 9145 27 Dec, 2017 Chest pain, unspecified type R07.9 ; Dehydration E86.0 and Anuria R34 [place] [address] 92048- 1758 26 Dec, 2017 [place] [address] 52792- 0045 22 Dec, 2017 Hyperglycemia R73.9 ; Dehydration E86.0 and Acute cystitis with hematuria N30.01 [facility] [address] 79552 -7970 Dec, [facility] [address] 98783 -4887 Dec, [facility] [address] 85820 -7406 Dec, [facility] [address] [place] [address] 71254 -0858 16 Dec, 2017 Dysuria R30.0 ; Acute cystitis with hematuria N30.01 and Weakness R53.1 [place] [address] 75240- 9698 Dec, [place] [id number] [place] [address] 30896- 4037 Nov, [place] [address] 24557- 6051 Nov, [place] [address] 07335- 5156 Nov, Essential hypertension I10 ; DM neuro manif type II E11.49 ; 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 ; Tobacco abuse Z72.0 ; Hyperlipidemia E78.5 ; Non-adherence to medical treatment Z91.19 ; GERD (gastroesophageal reflux disease) K21.9 ; Degenerative disc disease, lumbar M51.36 ; Fibromyalgia M79.7 ; Chronic pain syndrome G89.4 ; Dental caries K02.9 and Seasonal allergic rhinitis due to pollen J30.1 [place] [address] 49765- 3110 Nov, Alterations of sensations R20.9 [place] [id number] [place] [address] 80518- 2110 Sep, DM neuro manif type II E11.49 ; Hyperlipidemia E78.5 ; Degenerative disc disease, lumbar M51.36 and Chronic pain syndrome G89.4 [place] [id number] [place] [address] 83170- 4272 Sep, Arthritis M19.90 [place] [id number] [place] [address] 02233- 7424 Sep, Type 2 diabetes mellitus without complication E11.9 ; GERD ( gastroesophageal reflux disease) K21.9 ; Arthritis M19.90 and Chronic pain syndrome G89.4 [place] [id number] [place] [address] 86192- 9861 Sep, [facility] [place] [address] [address] 8[address] Aug, [facility] [place] [address] [address] [id number] [place] [address] 82437- 9858 18 Aug, 2017 Type 2 diabetes mellitus without complication E11.9 [place] [id number] [place] [address] 90126- 7201 17 Aug, 2017 [facility] [place] [address] [id number] [place] [address] 43754- 4261 Aug, [facility] [place] [id number] [place] [address] 00964- 6148 Aug, [place] [id number] [place] [address] 22014- 3682 26 Jul, 2017 [facility] [id number] [place] [address] 99559 -7876 22 Jul, 2017 Acute non-recurrent frontal sinusitis J01.10 [place] [id number] [place] [address] 22664- 6361 20 Jul, 2017 CAD (coronary artery disease) I25.10 and GERD ( gastroesophageal reflux disease) K21.9 [place] [id number] [address]- 5690 14 Jul, 2017 Localized swelling, mass and lump, neck R22.1 [place] [id number] [place] [address] 15421- 4826 06 Jul, 2017 [place] [address] [id number] [place] [address] 76678- 6429 15 Jun, 2017 Type 2 diabetes mellitus without complication E11.9 ; Primary insomnia F51.01 ; Alterations of sensations R20.9 ; Hyperlipidemia E78.5 ; GERD (gastroesophageal reflux disease) K21.9 ; Essential hypertension I10 ; shelter 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 ; Tobacco abuse Z72.0 ; Tobacco abuse counseling Z71.6 and CAD (coronary artery disease) I25.10 [place] [id number] [address]- 8193 May, [facility] [place] [address] [address] [id number] [place] [address] 13531- 0276 May, Type 2 diabetes mellitus without complication E11.9 [facility] [place] [id number] [place] [address] 47346- 0120 May, [place] [address] 60025- 9920 March, [facility] [place] [address] [address] [id number] [place] [address] 90006- 2538 Feb, [facility] [id number] [place] [address] 55572 -1296 Jan, Acute suppurative otitis media of left ear with spontaneous rupture of tympanic membrane, recurrence not specified H66.012 [place] [id number] [place] [address] 03053- 5117 Dec, Type 2 diabetes mellitus without complication E11.9 ; Lumbago M54.5 ; Cervicalgia M54.2 ; Hyperlipidemia E78.5 ; GERD ( gastroesophageal reflux disease) K21.9 ; Chronic pain syndrome G89.4 ; Dysuria R30.0 and Essential hypertension I10 [place] [address] [id number] [place] [address] 36336- 0346 Oct, [place] [address] [address] [id number] [place] [address] 13599- 2963 Sep, Diabetic mononeuropathy associated with type 2 diabetes mellitus E11.41 and Coughing R05 [place] [address] [id number] [place] [address] 54927- 0294 Sep, Diabetic mononeuropathy associated with type 2 diabetes mellitus E11.41 and Coughing R05 [place] [address] [address] [id number] [place] [address] 08877- 1746 Sep, Onychomycosis B35.1 ; Neuritis M79.2 and Type 2 diabetes mellitus without complication E11.9 [place] [address] [id number] [place] [address] 12901- 4110 14 Sep, 2016 [place] [address] 98469- 3420 03 Sep, 2016 Cough R05 ; Seasonal allergic rhinitis due to pollen J30.1 and Acute upper respiratory infection, unspecified J06.9 [place] [address] 65205- 4595 02 Sep, 2016 [place] [address] 79688- 4182 Aug, [place] [address] 58003- 1863 13 Jul, 2016 Type 2 diabetes mellitus without complication E11.9 ; Chronic pain G89.29 ; Essential hypertension I10 and Acute non-recurrent maxillary sinusitis J01.00 [place] [address] 92925- 8049 Jul, Chronic pain syndrome G89.4 ; Lumbago M54.5 and Cervicalgia M54.2 [place] [address] 08756- 0699 Jul, [place] [address] 09319- 8644 Jul, [place] [address] 37215- 1225 Jun, Onychomycosis B35.1 ; Onychocryptosis L60.0 and DM neuro manif type II E11.49 [place] [address] 20401- 9173 04 Jun, 2016 Type 2 diabetes mellitus without complication E11.9 ; Pain in unspecified hip M25.559 ; Other chronic pain G89.29 ; Lumbago M54.5 ; Chronic pain G89.29 ; Insomnia, unspecified G47.00 ; GERD (gastroesophageal reflux disease) K21.9 and Dental caries K02.9 [place] [id number] [place] [address] 48074- 7279 Jun, Type 2 diabetes mellitus without complication E11.9 ; Lumbago M54.5 ; Chronic pain G89.29 ; Insomnia, unspecified G47.00 ; GERD ( gastroesophageal reflux disease) K21.9 ; Dental caries K02.9 ; Pain in unspecified hip M25.559 and Other chronic pain G89.29 [place] [address] 64465- 5837 May, [place] [address] 44787- 0683 May, Type 2 diabetes mellitus without complication E11.9 ; Essential hypertension I10 ; Chronic pain syndrome G89.4 ; Other seasonal allergic rhinitis J30.2 and Insomnia, unspecified G47.[address] 06942- 7530 Apr, [place] [address] 87404- 0918 Apr, Hypertension I10 and Chronic pain G89.[address] 34636- 3762 March, Onychomycosis B35.1 ; Onychocryptosis L60.0 and Type 2 diabetes mellitus without complication E11.9 [place] [id number] [place] [address] 12763- 1183 March, Type 2 diabetes mellitus without complication E11.9 ; Essential hypertension I10 ; Alterations of sensations R20.9 ; Chronic pain syndrome G89.4 ; Tobacco abuse Z72.0 and Tobacco abuse counseling Z71.[address] 09864- 6010 Feb, Cough R05 ; Type 2 diabetes mellitus without complication E11.9 ; Tobacco abuse counseling Z71.6 and Chronic pain G89.[address] 91930- 7714 Feb, [place] [id number] [place] [address] 98079- 4105 Feb, Type 2 diabetes mellitus without complication E11.9 ; Lumbago M54.5 ; Cervicalgia M54.2 ; Degenerative disc disease, lumbar M51.36 and Numbness and tingling of both legs 782.0 [facility] [address] [id number] Jan, Dental caries K02.9 and Encounter for dental examination Z01.20 [place] [address] 39962- 1238 Jan, Type 2 diabetes mellitus without complication E11.9 [place] [address] 72808- 0569 Jan, Type 2 diabetes mellitus without complication E11.9 ; Numbness and tingling of both legs 782.0 ; Fibromyalgia M79.7 ; Hyperlipidemia E78.5 ; Lumbago M54.5 ; Cervicalgia M54.2 ; Hypertension I10 ; CAD (coronary artery disease) I25.10 ; Tobacco abuse Z72.0 ; Tobacco abuse counseling Z71.6 and GERD (gastroesophageal reflux disease) K21.9 [place] [id number] [place] [address] 57226- 9567 Jan, [place] [id number] [place] [address] 03479- 5093 Dec, [facility] [address] [id number] Dec, Dental examination Z01.20 and Dental caries K02.9 [place] [address] 06989- 4279 Dec, Edema R60.9 ; Type 2 diabetes mellitus without complication E11.9 ; Hypertension I10 and Mouth pain K13.79 [place] [id number] [place] [address] 31994- 7736 Dec, Degenerative disc disease, lumbar M51.36 [place] [id number] [place] [address] 86566- 4700 Dec, [place] [address] 35099- 3766 Nov, Insomnia, unspecified G47.00 [place] [address] 92798- 8943 Nov, Type 2 diabetes mellitus without complication E11.9 ; Lumbago M54.5 ; Degenerative disc disease, lumbar M51.36 ; Fibromyalgia M79.7 ; Coronary artery disease I25.10 ; Hyperlipidemia E78.5 ; Controlled substance agreement signed Z79.899 ; Dysuria R30.0 ; Insomnia, unspecified G47.00 ; GERD ( gastroesophageal reflux disease) K21.9 ; Hypertension 401.9 and 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 [place] [address] 36714- 9799 Nov, [place] [address] 06464- 6474 Oct, Degenerative disc disease, lumbar M51.36 ; Cervicalgia M54.2 ; Insomnia, unspecified G47.00 ; Decreased GFR R94.4 and GERD ( gastroesophageal reflux disease) K21.9 [place] [id number] [place] [address] 88943- 9279 Oct, Lumbago M54.5 [place] [address] 07708- 8228 Oct, Low back pain M54.5 [place] [address] 23299- 9099 Oct, [place] [address] 19577- 2663 Oct, Disorientation R41.0 [place] [address] 28240- 6394 Oct, Type 2 diabetes mellitus without complication E11.9 ; Disorientation R41.0 and Chest pain R07.9 [facility] [place] [id number] [place] [address] 42194- 4828 Oct, [facility] [place] [id number] [place] [address] 00849- 9644 Sep, Low back pain M54.5 [facility] [place] [address] 98470- 6565 Sep, Insomnia, unspecified G47.00 [facility] [place] [address] 04696- 5436 Aug, Degenerative disc disease, lumbar M51.36 ; Type 2 diabetes mellitus without complication E11.9 and Encounter for immunization Z23 [facility] [place] [address] 18614- 3318 Aug, [facility] [place] [address] 77134- 3298 Aug, [facility] [place] [address] 35876- 5150 Aug, [facility] [place] [address] 27605- 8161 Jul, [facility] [place] [id number] [place] [address] 00483- 7797 Jun, [facility] [place] [id number] [place] [address] 13575- 0052 Jun, Chest pain 786.50 and Lumbago 724.2 [facility] [place] [id number] [place] [address] 83108- 7261 Jun, [facility] [place] [id number] [place] [address] 35793- 8198 Jun, [facility] [address] [place] [id number] [place] [address] [id number] Jun, Dental examination V72.2 [facility] [place] [id number] [address]- 8108 Jun, [facility] [place] [id number] [place] [address] 13556- 0160 May, Left shoulder pain 719.41 and Numbness and tingling of both legs 782.0 [facility] [place] [id number] [place] [address] 62125- 6636 May, Cough 786.2 ; Numbness and tingling of both legs 782.0 and Acute rhinitis 460 [facility] [id number] [place] [address] 44573- 2984 May, [facility] [place] [id number] [place] [address] 46166- 3397 Apr, [facility] [place] [id number] [place] [address] 60154- 6691 Apr, Bilateral lower extremity edema 782.3 ; Lumbago 724.2 and Insomnia 780.52 [facility] [id number] [place] [address] 80185- 1780 Apr, [facility] [id number] [place] [address] 98077- 2164 Apr, [facility] [id number] [place] [address] 65512- 3486 March, Seborrheic keratosis 702.19 and Skin lesion of face 709.9 [facility] [address] [address]- 7973 March, [facility] [id number] [place] [address] 27519- 3384 March, [facility] [id number] [place] [address] 93297- 5599 March, [facility] [id number] [place] [address] 00450- 9035 March, [facility] [place] [facility] [address] [id number] [place] [address]- 0330 14 Feb, 2015 [facility] [place] [facility] [address] [id number] [place] [address]- 3807 13 Feb, 2015 [facility] [place] [facility] [address] [id number] [place] [address]- 2572 25 Jan, 2015 [facility] [place] [facility] [address] [id number] [place] [address]- 4183 25 Jan, 2015 [facility] [place] [facility] [address] [id number] [place] [address]- 3959 16 Jan, 2015 [facility] [place] [facility] [address] [id number] [place] [address]- 3429 16 Jan, 2015 [facility] [place] [facility] [address] [id number] [place] [address]- 0359 16 Jan, 2015 [facility] [place] [facility] [address] [id number] [place] [address]- 7294 16 Jan, 2015 [facility] [place] [facility] [address] [id number] [place] [address]- 2538 13 Jan, 2015 [facility] [place] [facility] [address] [id number] [place] [address]- 1300 13 Jan, 2015 [facility] [place] [facility] [address] [id number] [place] [address]- 0557 13 Jan, 2015 [facility] [place] [facility] [address] [id number] [place] [address]- 3604 13 Jan, 2015 [facility] [place] [facility] [address] [id number] [place] [address]- 2128 10 Jan, 2015 [facility] [place] [facility] [address] [id number] [place] [address]- 6889 27 Dec, 2014 [facility] [place] [facility] [address] [id number] [place] [address]- 7350 27 Dec, 2014 [facility] [place] [facility] [address] [id number] [place] [address]- 4363 Dec, [facility] [place] [facility] [address] [id number] [place] [address]- 3108 Dec, [facility] [place] [facility] [address] [id number] [place] [address]- 4145 Dec, [facility] [place] [facility] [address] [id number] [place] [address]- 7595 Dec, [facility] [place] [facility] [address] [id number] [address]- 1241 Nov, [facility] [place] [facility] [address] [id number] [place] [address]- 6971 Nov, [facility] [place] [facility] [address] [id number] [place] [address]- 3495 Nov, [facility] [place] [facility] [address] [id number] [place] [address]- 1736 Nov, [facility] [place] [facility] [address] [id number] [place] [address]- 4205 Nov, [facility] [place] [facility] [address] [id number] [place] [address]- 0078 Nov, [facility] [place] [facility] [address] [id number] [place] [address]- 6847 Nov, [facility] [place] [facility] [address] [id number] [place] [address]- 1578 Nov, [facility] [place] [facility] [address] [id number] [place] [address] Nov, [facility] [place] [facility] [address] [id number] [place] [address] Nov, [facility] [place] [facility] [address] [id number] [place] [address] Nov, [facility] [place] [facility] [address] [id number] [place] [address] Oct, [facility] [place] [facility] [address] [id number] [place] [address] Oct, [facility] [place] [facility] [address] [id number] [place] [address] Oct, [facility] [place] [facility] [address] [id number] [place] [address] Oct, [facility] [place] [facility] [address] [id number] [place] [address] Oct, [facility] [place] [facility] [address] [id number] [place] [address] Oct, [facility] [place] [facility] [address] [id number] [place] [address] Oct, [facility] [place] [facility] [address] [id number] [place] [address] Oct, [facility] [place] [facility] [address] [id number] [place] [address] Oct, [facility] [place] [facility] [address] [id number] [place] [address] Oct, [facility] [place] [facility] [address] [id number] [place] [address] Sep, [facility] [place] [facility] [address] [id number] [place] [address] Sep, [facility] [place] [facility] [address] [id number] [place] [address] Sep, [facility] [place] [facility] [address] [id number] [place] [address] Sep, [facility] [place] [facility] [address] [id number] [place] [address] Sep, [facility] [place] [facility] [address] [id number] [place] [address] Sep, [facility] [place] [facility] [address] [id number] [place] [address] Sep, [facility] [place] [facility] [address] [id number] [place] [id number] Sep, [facility] [place] [facility] [address] [id number] [place] [address] Sep, [facility] [place] [facility] [address] [id number] [place] [address] Sep, [facility] [place] [facility] [address] [id number] [place] [address] Sep, [facility] [place] [facility] [address] [id number] [place] [address] Sep, [facility] [place] [facility] [address] [id number] [place] [address] 2019 Sep, [facility] [place] [facility] [address] [id number] [place] [address] 30 Aug, 2014 [facility] [place] [facility] [address] [id number] [place] [address] 30 Aug, 2014 [facility] [place] [facility] [address] [id number] [place] [address] 30 Aug, 2014 [facility] [place] [facility] [address] [id number] [place] [address] 30 Aug, 2014 [facility] [place] [facility] [address] [id number] [place] [address] 30 Aug, 2014 [facility] [place] [facility] [address] [id number] [place] [address] 30 Aug, 2014 [facility] [place] [facility] [address] [id number] [place] [address] Aug, [facility] [place] [facility] [address] [id number] [place] [address] Aug, [facility] [place] [facility] [address] [id number] [place] [address] Aug, [facility] [place] [facility] [address] [id number] [place] [address] Aug, [facility] [place] [facility] [address] [id number] [place] [address] Aug, [facility] [place] [facility] [address] [id number] [place] [address] Aug, [facility] [place] [facility] [address] [id number] [place] [address] Aug, 2013 [facility] [place] [facility] [address] [id number] [place] [address] Aug, [facility] [place] [facility] [address] [id number] [place] [address] Aug, [facility] [place] [facility] [address] [id number] [place] [address] Aug, [facility] [place] [facility] [address] [id number] [place] [address] Aug, [facility] [place] [facility] [address] [id number] [place] [address] Aug, [facility] [place] [facility] [address] [id number] [place] [address] 30 Jul, 2013 [facility] [place] [facility] [address] [id number] [place] [address] 30 Sep, 2013 [facility] [place] [facility] [address] [id number] [place] [address] 24 Sep, 2013 [facility] [place] [facility] [address] [id number] [address] 24 Sep, 2013 [facility] [place] [facility] [address] [id number] [place] [address] 23 Sep, 2013 [facility] [place] [facility] [address] [id number] [place] [address] 23 Sep, 2013 [facility] [place] [facility] [address] [id number] [place] [address] 15 Sep, 2013 [facility] [place] [facility] [address] [id number] [address] Jul, [facility] [place] [id number] [address] Jul, [facility] [place] [id number] [address] Jul, [facility] [place] [id number] [address] Jul, [facility] [place] [id number] [address] Jul, [facility] [place] [id number] [address] Jul, [facility] [place] [id number] [address] Jul, IMMUNIZATIONS No Known Immunizations SOCIAL HISTORY Never Assessed REASON FOR VISIT Ear pain/Headache--tjanssenMA, --c/o ear pain on and off for a few weeks and the headaches for the past week PLAN OF CARE Activity Details Follow Up 3 Months, prn Reason:CHM/DM VITAL SIGNS Height 60 in 2018-02-24 Weight 172 lbs 2018-02-24 Temperature 97.6 degrees Fahrenheit 2018-02-24 Heart Rate 88 bpm 2018-02-24 Respiratory Rate 20 2018-02-24 BMI 33.59 kg/m2 2018-02-24 Blood pressure systolic 140 mmHg 2018-02-24 Blood pressure diastolic 82 mmHg 2018-02-24 MEDICATIONS Medication Instructions Dosage Frequency Start Date End Date Duration Status Norvasc 5 MG TAKE 1 TABLET BY MOUTH ONCE A DAY Active Benadryl Active Tradjenta 5 MG TAKE ONE TABLET BY MOUTH ONCE DAILY Active Aspirin 81 MG Orally Once a day 1 tablet 24h Active Percocet 10-325 MG Orally every 4- 6 hrs 1 tablet as needed Active Amoxicillin-Pot Clavulanate 875-125 MG Orally every 12 hrs 1 tablet 12h Feb, Feb, 10 day(s) Active Gabapentin 800 MG Orally TID PRN 1 tablet Feb, 30 day(s) Active Lipitor 20 mg Orally Once a day take 1 tablet by Oral route at bedtime 1 time per day 24h Active Omeprazole 20 mg Orally Once a day TAKE ONE CAPSULE BY MOUTH ONCE DAILY 24h Active Oxycodone HCl 10 mg Orally once a day 1 tablet as needed 24h Active Diclofenac Sodium 75 MG TAKE ONE TABLET BY MOUTH TWICE DAILY WITH FOOD OR MILK 30 Not-Taking Levemir FlexTouch 100 UNIT/ML Subcutaneous 2 times a day INJECT 58 UNITS SUBCUTANEOUSLY TWICE DAILY 12h Active Humalog 100 UNIT/ML Active Gabapentin 600 MG Orally 3 times a day 1 tablet 8h Active RESULTS Name Result Date Reference Range A1C (IN HOUSE) 2018-02-24 A1C IN HOUSE 8.9 4.3 - 5.6 % Previous A1c 9.7 Lot [id number] Exp date 09/2019 PROCEDURES Procedure Date Ordered Result Body Site GLYCATED HEMOGLOBIN TEST February 24, 2018 [facility] VISIT ESTABLISHED PATIENT February 24, 2018 INSTRUCTIONS MEDICATIONS ADMINISTERED No Known Medications MEDICAL (GENERAL) HISTORY Type Description Date Medical History hearing loss Medical History hypertension Medical History acute renal failure Medical History hyperlipidemia Medical History type II diabetes Medical History Arthritis Medical History degenerative disease lumbosacral spine Medical History chronic pain r/t DDD Medical History fibromyalgia Medical History GA-stent to LAD Surgical History cholecystectomy 1983 Surgical [...] Influenza illness, hyperglycemia 2017 Hospitalization History [facility]- High BS (Pt left AMA) 01/05/2018 Hospitalization History [facility]- DKA and UTI. Discharged 01/14/2018 Hospitalization History [facility]- Nausea and Vomiting, cannot urinate 01/18/2018
--- OUTSIDE RECORDS SUMMARY | 2018-07-31 02:45 | XMS REPORT ---
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 Name Role Phone MARCELINO BURKS Unavailable PROBLEMS Type Condition ICD9-CM Code KMI12-PK Code Onset Dates Condition Status SNOMED Code Problem Dental caries K02.9 Active 89694386 Problem Primary insomnia F51.01 Active 2000982 Problem Seasonal allergic rhinitis due to pollen J30.1 Active 40340380 Problem Type 2 diabetes mellitus with hyperglycemia E11.65 Active [id number] Problem Hyperlipidemia E78.5 Active 51904656 Problem Cervicalgia M54.2 Active 50217494 Problem Alterations of sensations R20.9 Active 965231565 Problem Other obesity due to excess calories E66.09 Active 010494979 Problem Arthritis M19.90 Active 9343216 Problem Diabetic mononeuropathy associated with type 2 diabetes mellitus E11.41 Active 588361291 Problem Body mass index (BMI) of 33.0-33.9 in adult Z68.33 Active 385778775 Problem GERD (gastroesophageal reflux disease) K21.9 Active 808147284 Problem correction 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 Active 618563125 Problem Degenerative disc disease, lumbar M51.36 Active 16947738 Problem Fibromyalgia M79.7 Active 04144973 Problem Tobacco abuse Z72.0 Active 00392091 Problem Tobacco abuse counseling Z71.6 Active 647306582 Problem Essential hypertension I10 Active 44279643 Problem Chronic pain syndrome G89.4 Active 729598122 Problem CAD (coronary artery disease) I25.10 Active 67715358 Problem DM neuro manif type II E11.49 Active 78763064 ALLERGIES No Information ENCOUNTERS Encounter Location Date Diagnosis [facility] [address] [facility] [id number] [address] Jul, [facility] [address] [id number] [address] Apr, Type 2 diabetes mellitus with hyperglycemia E11.65 [place] [address] [address] Apr, Hyperlipidemia E78.5 ; Chronic pain syndrome G89.4 ; Cervicalgia M54.2 ; DM neuro manif type II E11.49 ; 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 ; Nausea alone R11.0 ; Essential hypertension I10 ; GERD ( gastroesophageal reflux disease) K21.9 ; CAD (coronary artery disease) I25.10 and Diabetic mononeuropathy associated with type 2 diabetes mellitus E11.41 [place] [address] [address]- [address] Apr, [place] [address] [address]- [address] March, Essential hypertension I10 ; DM neuro manif type II E11.49 and GERD (gastroesophageal reflux disease) K21.9 [place] [address] 08130- 0262 March, DM neuro manif type II E11.49 and GERD (gastroesophageal reflux disease) K21.9 [place] [address] 30932- [address]67 March, [place] [address] 33448- 2990 Feb, Tobacco abuse Z72.0 [place] [address] 01348- 9347 Feb, Tobacco abuse Z72.0 [place] [address] 18006- 1403 Feb, Hypokalemia E87.6 [place] [address] 63783- 8394 Feb, Hyperlipidemia E78.5 ; Essential hypertension I10 ; DM neuro manif type II E11.49 ; Fibromyalgia M79.7 ; Acute non-recurrent frontal sinusitis J01.10 ; Other obesity due to excess calories E66.09 and Body mass index (BMI) of 33.0-33.9 in adult Z68.33 [place] [address] [address]- 0083 05 Jan, 2018 Dysuria R30.0 [place] [address] 60932- 1792 05 Jan, 2018 Dysuria R30.0 [place] [address] 9[address]91- 3037 02 Jan, 2018 Acute cystitis with hematuria N30.01 ; DM neuro manif type II E11.49 ; 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 ; Essential hypertension I10 and Hospital discharge follow-up Z09 [place] [address] 50[address]- 3008 27 Dec, 2017 Chest pain, unspecified type R07.9 ; Dehydration E86.0 and Anuria R34 [place] [address] 32641- 2772 Dec, [place] [address] 72825- 3641 Dec, Hyperglycemia R73.9 ; Dehydration E86.0 and Acute cystitis with hematuria N30.01 [facility] [address] [place] [address]37 -0993 Dec, [facility] [address] [place] [address] 12081 -9010 Dec, [facility] [address] [place] [address] 21565 -8797 Dec, [facility] [address] [place] [address] 75392 -6839 16 Dec, 2017 Dysuria R30.0 ; Acute cystitis with hematuria N30.01 and Weakness R53.[address] 0[address]77- 7267 Dec, [place] [id number] [place] [address] 26295- 5715 Nov, [place] [address] 81510- 8192 Nov, [place] [address] 18050- 9993 Nov, Essential hypertension I10 ; DM neuro [...] Seasonal allergic rhinitis due to pollen J30.[address] 38183- 5741 Nov, Alterations of sensations R20.9 [place] [address] 93503- 7542 Sep, DM neuro manif type II E11.49 ; Hyperlipidemia E78.5 ; Degenerative disc disease, lumbar M51.36 and Chronic pain syndrome G89.4 [place] [id number] [place] [address] 73161- 1227 Sep, Arthritis M19.90 [place] [address] 18871- 9122 Sep, Type 2 diabetes mellitus without complication E11.9 ; GERD ( gastroesophageal reflux disease) K21.9 ; Arthritis M19.90 and Chronic pain syndrome G89.4 [place] [address] 47153- 0414 Sep, [place] [id number] [place] [address] 86575- 8538 Aug, [place] [address] 48095- 3147 18 Aug, 2017 Type 2 diabetes mellitus without complication E11.9 [facility] [address] [address] 17 Aug, 2017 [facility] [id number] [place] [address] 01647- 7545 16 Aug, 2017 [facility] [id number] [place] [address] 12193- 9357 Aug, [facility] [id number] [place] [address] 97232- 6086 26 Jul, 2017 [facility] [id number] [place] [address] 27772 -1511 22 Jul, 2017 Acute non-recurrent frontal sinusitis J01.10 [place] [id number] [place] [address] 60262- 3725 20 Jul, 2017 CAD (coronary artery disease) I25.10 and GERD ( gastroesophageal reflux disease) K21.9 [place] [id number] [place] [address] 88553- 5221 14 Jul, 2017 Localized swelling, mass and lump, neck R22.1 [place] [address] [id number] [place] [address] 67176- 1872 06 Jul, 2017 [place] [id number] [place] [address] 38552- 1759 Jun, Type 2 diabetes mellitus without complication E11.9 ; Primary insomnia F51.01 ; Alterations of sensations R20.9 ; Hyperlipidemia E78.5 ; GERD (gastroesophageal reflux disease) K21.9 ; Essential hypertension I10 ; 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 ; Tobacco abuse Z72.0 ; Tobacco abuse counseling Z71.6 and CAD (coronary artery disease) I25.10 [facility] [id number] [place] [address] 57407- 4664 May, [place] [id number] [place] [address] 80187- 2879 May, Type 2 diabetes mellitus without complication E11.9 [facility] [id number] [place] [address] 52546- 8748 May, [facility] [id number] [place] [address] 77623- 9820 March, [facility] [id number] [place] [address] 94486- 8291 Feb, [facility] [id number] [place] [address] 08911 -5523 Jan, Acute suppurative otitis media of left ear with spontaneous rupture of tympanic membrane, recurrence not specified H66.012 [place] [id number] [place] [address] 06189- 5478 Dec, Type 2 diabetes mellitus without complication E11.9 ; Lumbago M54.5 ; Cervicalgia M54.2 ; Hyperlipidemia E78.5 ; GERD ( gastroesophageal reflux disease) K21.9 ; Chronic pain syndrome G89.4 ; Dysuria R30.0 and Essential hypertension I10 [place] [id number] [place] [address] 86825- 2759 Oct, [place] [id number] [place] [address] 82069- 4123 30 Sep, 2016 Diabetic mononeuropathy associated with type 2 diabetes mellitus E11.41 and Coughing R05 [place] [id number] [place] [address] 09378- 5256 Sep, Diabetic mononeuropathy associated with type 2 diabetes mellitus E11.41 and Coughing R05 [facility] [id number] [place] [address] 58650- 3884 Sep, Onychomycosis B35.1 ; Neuritis M79.2 and Type 2 diabetes mellitus without complication E11.9 [facility] [id number] [place] [address] 19261- 3090 Sep, [facility] [id number] [place] [address] 23302- 6636 Sep, Cough R05 ; Seasonal allergic rhinitis due to pollen J30.1 and Acute upper respiratory infection, unspecified J06.9 [place] [id number] [place] [address] 12915- 1030 Sep, [place] [address] 33050- 8219 Aug, [place] [address] 47599- 1863 Jul, Type 2 diabetes mellitus without complication E11.9 ; Chronic pain G89.29 ; Essential hypertension I10 and Acute non-recurrent maxillary sinusitis J01.00 [place] [address] 27997- 4532 Jul, Chronic pain syndrome G89.4 ; Lumbago M54.5 and Cervicalgia M54.2 [place] [address] 61845- 9762 Jul, [place] [address] 55058- 3735 Jul, [place] [address] 17512- 0318 Jun, Onychomycosis B35.1 ; Onychocryptosis L60.0 and DM neuro manif type II E11.49 [place] [id number] [place] [address] 67400- 7953 Jun, Type 2 diabetes mellitus without complication E11.9 ; Pain in unspecified hip M25.559 ; Other chronic pain G89.29 ; Lumbago M54.5 ; Chronic pain G89.29 ; Insomnia, unspecified G47.00 ; GERD (gastroesophageal reflux disease) K21.9 and Dental caries K02.9 [place] [id number] [place] [address] 65451- 2253 Jun, Type 2 diabetes mellitus without complication E11.9 ; Lumbago M54.5 ; Chronic pain G89.29 ; Insomnia, unspecified G47.00 ; GERD ( gastroesophageal reflux disease) K21.9 ; Dental caries K02.9 ; Pain in unspecified hip M25.559 and Other chronic pain G89.29 [place] [address] 91380- 5327 May, [place] [address] 03243- 5283 May, Type 2 diabetes mellitus without complication E11.9 ; Essential hypertension I10 ; Chronic pain syndrome G89.4 ; Other seasonal allergic rhinitis J30.2 and Insomnia, unspecified G47.00 [place] [address] 22181- 9595 Apr, [address] 61886- 1158 Apr, Hypertension I10 and Chronic pain G89.29 [place] [address] 31813- 9295 March, Onychomycosis B35.1 ; Onychocryptosis L60.0 and Type 2 diabetes mellitus without complication E11.9 [place] [address] 84666- 1593 March, Type 2 diabetes mellitus without complication E11.9 ; Essential hypertension I10 ; Alterations of sensations R20.9 ; Chronic pain syndrome G89.4 ; Tobacco abuse Z72.0 and Tobacco abuse counseling Z71.6 [place] [address] 59211- 1409 Feb, Cough R05 ; Type 2 diabetes mellitus without complication E11.9 ; Tobacco abuse counseling Z71.6 and Chronic pain G89.29 [place] [address] 64849- 7851 Feb, [place] [address] 84611- 8441 Feb, Type 2 diabetes mellitus without complication E11.9 ; Lumbago M54.5 ; Cervicalgia M54.2 ; Degenerative disc disease, lumbar M51.36 and Numbness and tingling of both legs 782.0 [facility] [id number] [place] [address] [id number] Jan, Dental caries K02.9 and Encounter for dental examination Z01.[address] 88676- 7059 Jan, Type 2 diabetes mellitus without complication E11.9 [place] [address] 54169- 3880 Jan, Type 2 diabetes mellitus without complication E11.9 ; Numbness and tingling of both legs 782.0 ; Fibromyalgia M79.7 ; Hyperlipidemia E78.5 ; Lumbago M54.5 ; Cervicalgia M54.2 ; Hypertension I10 ; CAD (coronary artery disease) I25.10 ; Tobacco abuse Z72.0 ; Tobacco abuse counseling Z71.6 and GERD (gastroesophageal reflux disease) K21.[address] 72528- 3042 Jan, [address] 12306- 6579 Dec, [facility] [id number] [place] [address] [id number] Dec, Dental examination Z01.20 and Dental caries K02.[address] 89383- 4863 Dec, Edema R60.9 ; Type 2 diabetes mellitus without complication E11.9 ; Hypertension I10 and Mouth pain K13.[address] 04038- 3370 Dec, Degenerative disc disease, lumbar M51.[address] 87226- 9513 Dec, [address] [place] [address]- 2399 Nov, Insomnia, unspecified G47.00 [place] [address] 50799- 5815 Nov, Type 2 diabetes mellitus without complication E11.9 ; Lumbago M54.5 ; Degenerative disc disease, lumbar M51.36 ; Fibromyalgia M79.7 ; Coronary artery disease I25.10 ; Hyperlipidemia E78.5 ; Controlled substance agreement signed Z79.899 ; Dysuria R30.0 ; Insomnia, unspecified G47.00 ; GERD ( gastroesophageal reflux disease) K21.9 ; Hypertension 401.9 and 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 [place] [address] 35837- 1674 Nov, [place] [address] 92234- 9846 Oct, Degenerative disc disease, lumbar M51.36 ; Cervicalgia M54.2 ; Insomnia, unspecified G47.00 ; Decreased GFR R94.4 and GERD ( gastroesophageal reflux disease) K21.9 [place] [address] 38454- 2002 Oct, Lumbago M54.5 [place] [address] 17904- 1042 Oct, Low back pain M54.5 [place] [address] 19186- 0475 Oct, [place] [address] 86535- 3547 Oct, Disorientation R41.0 [place] [address] 27277- 5733 Oct, Type 2 diabetes mellitus without complication E11.9 ; Disorientation R41.0 and Chest pain R07.9 [place] [address] 45365- 0943 Oct, [facility] [id number] [place] [address] 16000- 3460 Sep, Low back pain M54.5 [facility] [id number] [place] [address] 03139- 3972 Sep, Insomnia, unspecified G47.00 [facility] [id number] [place] [address] 98820- 3365 Aug, Degenerative disc disease, lumbar M51.36 ; Type 2 diabetes mellitus without complication E11.9 and Encounter for immunization Z23 [facility] [id number] [place] [address] 15417- 2380 Aug, [facility] [id number] [place] [address] 70443- 0840 Aug, [facility] [id number] [place] [address] 30491- 2210 Aug, [facility] [id number] [place] [address] 52679- 0788 Jul, [facility] [id number] [place] [address] 62271- 3337 Jun, [facility] [id number] [place] [address] 87496- 9912 Jun, Chest pain 786.50 and Lumbago 724.2 [facility] [id number] [place] [address] 30794- 9305 Jun, [facility] [id number] [place] [address] 96528- 4593 Jun, [facility] [id number] [place] [address] [id number] Jun, Dental examination V72.2 [facility] [id number] [place] [address] 24142- 5911 Jun, [facility] [id number] [place] [address] 50724- 4822 May, Left shoulder pain 719.41 and Numbness and tingling of both legs 782.0 [facility] [id number] [place] [address] 03836- 0689 May, Cough 786.2 ; Numbness and tingling of both legs 782.0 and Acute rhinitis 460 [facility] [id number] [place] [address] 60471- 4806 May, [facility] [id number] [place] [address] 64527- 3489 Apr, [facility] [id number] [place] [address] 34628- 5268 Apr, Bilateral lower extremity edema 782.3 ; Lumbago 724.2 and Insomnia 780.52 [facility] [id number] [place] [address] 76217- 1142 Apr, [facility] [id number] [place] [address] 20419- 3741 Apr, [facility] [id number] [place] [address] 41131- 0785 March, Seborrheic keratosis 702.19 and Skin lesion of face 709.9 [facility] [id number] [place] [address] 30543- 3606 March, [facility] [id number] [place] [address] 10171- 6793 March, [facility] [id number] [place] [address] 55285- 8058 March, [facility] [id number] [place] [address] 546194- 0584 March, [facility] [id number] [place] [address] 15683- 5634 Feb, [facility] [id number] [place] [address] 24347- 7024 Feb, [facility] [place] [facility] [address] [id number] [place] [address]- 3370 25 Jan, 2015 [facility] [place] [facility] [address] [id number] [place] [address]- 3187 25 Jan, 2015 [facility] [place] [facility] [address] [id number] [place] [address]- 8249 16 Jan, 2015 [facility] [place] [facility] [address] [id number] [place] [address]- 8404 16 Jan, 2015 [facility] [place] [facility] [address] [id number] [place] [address]- 8856 16 Jan, 2015 [facility] [place] [facility] [address] [id number] [place] [address]- 0134 16 Jan, 2015 [facility] [place] [facility] [address] [id number] [place] [address]- 0040 Jan, [facility] [place] [facility] [address] [id number] [place] [address]- 5606 13 Jan, 2015 [facility] [place] [facility] [address] [id number] [place] [address]- 9379 Jan, [facility] [place] [facility] [address] [id number] [place] [address]- 5205 Jan, [facility] [place] [facility] [address] [id number] [place] [address]- 4964 Jan, [facility] [place] [facility] [address] [id number] [address]- 9750 Dec, [facility] [place] [facility] [address] [id number] [place] [address]- 4647 Dec, [facility] [place] [facility] [address] [id number] [place] [address]- 6564 Dec, [facility] [place] [facility] [address] [id number] [place] [address]- 1030 Dec, [facility] [place] [facility] [address] [id number] [place] [address]- 1741 12 Dec, 2014 [facility] [address] [id number] [place] [address]- 2863 Dec, [facility] [address] [id number] [place] [address]- 7660 15 Nov, 2014 [facility] [address] [id number] [place] [address]- 9290 15 Nov, 2014 [facility] [address] [id number] [place] [address]- 1953 Nov, [facility] [address] [id number] [place] [address]- [address]178 Nov, [facility] [address] [id number] [place] [address]- [address] Nov, [facility] [address] [id number] [place] [address]- [address] Nov, [facility] [address] [id number] [place] [address]- [address] Nov, [facility] [address] [id number] [place] [address]- [address] Nov, [facility] [address] [id number] [place] [address]- [address] Nov, [facility] [address] [id number] [place] [address]- [address] Nov, [facility] [address] [id number] [place] [address]- 6830 Nov, [facility] [place] [facility] [address] [id number] [place] [address]- 0831 Oct, [facility] [place] [facility] [address] [id number] [place] [address]- 2386 Oct, [facility] [address] [id number] [place] 4058 Oct, [facility] [place] [facility] [address] [id number] [place] [address]- 2276 Oct, [facility] [place] [facility] [address] [id number] [place] [address]- 5981 Oct, [facility] [place] [facility] [address] [id number] [place] [address]- 7785 Oct, [facility] [place] [facility] [address] [id number] [place] [address]- 3651 Oct, [facility] [place] [facility] [address] [id number] [place] [address]- 9825 Oct, [facility] [place] [facility] [address] [id number] [place] [address]- 6111 Oct, [facility] [place] [facility] [address] [id number] [place] [address] Oct, [facility] [place] [facility] [address] [id number] [place] [address] Sep, [facility] [place] [facility] [address] [id number] [place] [address] Sep, [facility] [place] [facility] [address] [id number], [place] [address] Sep, [facility] [place] [facility] [address] [id number], [place] [address] Sep, [facility] [place] [facility] [address] [id number], [place] [address] Sep, [facility] [place] [facility] [address] [id number], [place] [address] Sep, [facility] [place] [facility] [address] [id number], [place] [address] Sep, [facility] [place] [facility] [address] [id number], [place] [address] Sep, [facility] [place] [facility] [address] [id number], [place] [address] Sep, [facility] [place] [facility] [address] [id number] [place] [address] 17 Sep, 2014 [facility] [place] [facility] [address] [id number] [place] [address] Sep, [facility] [place] [facility] [address] [id number] [place] [address] Sep, [facility] [place] [facility] [address] [id number] [place] [address] Sep, [facility] [place] [facility] [address] [id number] [place] [address] Aug, [facility] [place] [facility] [address] [id number] [place] [address] Aug, [facility] [place] [facility] [address] [id number] [place] [address] Aug, [facility] [place] [facility] [address] [id number] [place] [address] 30 Aug, 2014 [facility] [place] [facility] [address] [id number] [place] [address] 30 Aug, 2014 [facility] [place] [facility] [address] [facility] [id number] [place] [address] 30 Aug, 2014 [facility] [place] [facility] [address] [id number] [place] [address] Aug, [facility] [place] [facility] [address] [id number][place] [address] Aug, [facility] [place] [facility] [address] [id number] [place] [address] Aug, [facility] [place] [facility] [address] [facility] [id number], [place] [address] Aug, [facility] [place] [facility] [address] [facility] [id number], [place] [address] Aug, [facility] [place] [facility] [address] [id number] [place] [address] Aug, 2013 [facility] [place] [facility] [address] [id number] [place] [address] Aug, [facility] [place] [facility] [address] [id number] [place] [address] Aug, 2013 [facility] [place] [facility] [address] [id number] [place] [address] Aug, 2013 [facility] [place] [facility] [address] [id number] [place] [address] Aug, [facility] [place] [facility] [address] [id number] [place] [address] Aug, [facility] [place] [facility] [address] [id number] [place] [address] Aug, [facility] [place] [facility] [address] [id number] [place] [address] 30 Sep, 2013 [facility] [place] [facility] [address] [id number] [place] [address] 30 Sep, 2013 [facility] [place] [facility] [address] [id number] [place] [address] 24 Sep, 2013 [facility] [place] [facility] [address] [id number] [place] [address] 24 Sep, 2013 [facility] [place] [facility] [address] [id number] [place] [address] 23 Sep, 2013 [facility] [place] [facility] [address] [id number] [place] [address] 23 Sep, 2013 [facility] [place] [facility] [address] [id number] [place] [address] 15 Sep, 2013 [facility] [place] [facility] [address] [id number] [place] [address] 15 Sep, 2013 [facility] [place] [facility] [address] [id number] [place] [address] Jul, [facility] [address] [facility] [id number], [place] [address] 15 Jul, 2014 [facility] [address] [facility] [id number], [place] [address] Jul, [facility] [address] [facility] [id number], [place] [address] Jul, [facility] [address] [facility] [id number][place] [address] Jul, [facility] [address] [facility] [id number], [place] [address] Jul, IMMUNIZATIONS No Known Immunizations SOCIAL HISTORY Never Assessed REASON FOR VISIT critical lab PLAN OF CARE VITAL SIGNS MEDICATIONS Unknown Medications RESULTS Name Result Date Reference Range CMP (OUTSIDE LAB) 2018-02-25 PROCEDURES No Known procedures INSTRUCTIONS MEDICATIONS ADMINISTERED No Known Medications MEDICAL (GENERAL) HISTORY Type Description Date Medical History hearing loss Medical History hypertension Medical History acute renal failure Medical History hyperlipidemia Medical History type II diabetes Medical History Arthritis Medical History degenerative disease lumbosacral spine Medical History chronic pain r/t DDD Medical History fibromyalgia Medical History IN-stent to LAD Surgical History cholecystectomy 1983 Surgical [...] Influenza illness, hyperglycemia 2017 Hospitalization History [facility]- High BS (Pt left AMA) 01/05/2018 Hospitalization History [facility]- DKA and UTI. Discharged 01/14/2018 Hospitalization History [facility]- Nausea and Vomiting, cannot urinate 01/18/2018
[2018-07-31] MEDS: NS IV 1000 ML 1,000 ML IV SCH ×3 (03:20→16:22)
[2018-07-31] MEDS ORDERED: fentaNYL INJECTION 100 MCG/2 ML AMP ONE (03:56)
[2018-07-31 04:00] VITALS: BP 116/68
[2018-07-31 04:06] VITALS: BP 146/81
[2018-07-31] MEDS ORDERED: RT-ALBUTEROL SULF 2.5 MG/3 ML PRE-MIX VIAL INH PRN (04:15)
[2018-07-31] MEDS ORDERED: inSUlin ASPART (NovoLOG) 1 UNIT/0.01 ML (CHARGE PER UNIT) ONE (04:38)
[2018-07-31] MEDS: inSUlin ASPART (NovoLOG) 1 UNIT/0.01 ML (CHARGE PER UNIT) SC SCH ×5 (04:44→20:36)
[2018-07-31] MEDS ORDERED: OMEP20TA33 PO (04:59)
[2018-07-31] MEDS: fentaNYL INJECTION 100 MCG/2 ML AMP IV PRN ×8 (06:07→22:47)
[2018-07-31 06:14] LABS: BASOPHILS # (AUTO) 0.1 10^3/uL (0.0-0.1); BASOPHILS % (AUTO) 0 % (0-10); EOSINOPHILS # (AUTO) 0.3 10^3/uL (0.0-0.3); EOSINOPHILS % (AUTO) 2 % (0-10); HEMATOCRIT 38 % (35-52); HEMOGLOBIN 13.3 G/DL (11.5-16.0); LYMPHOCYTES # (AUTO) 5.3 X 10^3 (1.0-4.0); LYMPHOCYTES % (AUTO) 32 % (12-44); MEAN CORPUSCULAR HEMOGLOBIN 31 PG (25-34); MEAN CORPUSCULAR HGB CONC 36 G/DL (32-36); MEAN CORPUSCULAR VOLUME 86 FL (80-99); MEAN PLATELET VOLUME 9.5 FL (7.4-10.4); MONOCYTES # (AUTO) 0.9 X 10^3 (0.0-1.0); MONOCYTES % (AUTO) 6 % (0-12); NEUTROPHILS # (AUTO) 10.2 X 10^3 (1.8-7.8); NEUTROPHILS % (AUTO) 61 % (42-75); PLATELET COUNT 313 10^3/uL (130-400); RED BLOOD COUNT 4.34 10^6/uL (4.35-5.85); WHITE BLOOD COUNT 16.8 10^3/uL (4.3-11.0)
[2018-07-31 06:31] LABS: ALANINE AMINOTRANSFERASE 13 U/L (0-55); ALBUMIN 3.8 GM/DL (3.2-4.5); ALKALINE PHOSPHATASE 69 U/L (40-136); BILIRUBIN,TOTAL 0.5 MG/DL (0.1-1.0); BUN/CREATININE RATIO 19; CALCIUM 9.2 MG/DL (8.5-10.1); CARBON DIOXIDE 21 MMOL/L (21-32); CHLORIDE 113 MMOL/L (98-107); CREATININE SERUM 0.85 MG/DL (0.60-1.30); GFR ESTIMATED > 60; GLUCOSE 85 MG/DL (70-105); POTASSIUM 3.2 MMOL/L (3.6-5.0); SODIUM 144 MMOL/L (135-145); TOTAL PROTEIN 6.3 GM/DL (6.4-8.2)
[2018-07-31 06:51] LABS: EOSINOPHILS % (MANUAL) 2 %; LYMPHOCYTES % (MANUAL) 48 %; MONOCYTES % (MANUAL) 6 %; NEUTROPHILS % (MANUAL) 44 %; RBC MORPH NORMAL
[2018-07-31] MEDS ORDERED: GABA800T2 PO (07:13)
--- NOTE | 2018-07-31 07:22 | Diagnostic Imaging Report ---
PROCEDURE: CT abdomen and pelvis without contrast. TECHNIQUE: Multiple contiguous axial images were obtained through the abdomen and pelvis without the use of intravenous contrast. INDICATION: Nausea. Right lower quadrant abdominal pain. COMPARISON: 01/18/2018 FINDINGS: Included portions of the lung bases are clear. CT abdomen: Normal appendix is identified. Small bowel loops are nondistended. There is colonic diverticulosis, but no CT evidence of acute diverticulitis. Bilateral exophytic hypodense renal cysts are noted. There is also persistent lobulated appearance to both kidneys. Otherwise, kidneys have an unremarkable noncontrast CT appearance. The adrenal glands, spleen, pancreas, and liver have unremarkable noncontrast CT appearance as well. There is no loculated fluid collection, free fluid, nor free air within the abdomen. No abnormal mesenteric or retroperitoneal adenopathy is seen. Mild/moderate calcified aortic and arterial atherosclerosis is noted. Bony structures show no acute abnormalities. CT pelvis: Urinary bladder is grossly unremarkable. There is no loculated fluid collection, free fluid, nor free air within the pelvis. No abnormal lymph nodes are identified. Bony structures show no acute abnormalities. Hypodense right adnexal cyst is noted; likely ovarian. IMPRESSION: 1. No acute abnormalities are seen within the abdomen or pelvis. 2. Colonic diverticulosis, but no CT evidence of acute diverticulitis. Dictated by: Dictated on workstation # [id number]
[2018-07-31 08:00] VITALS: BP 117/57
[2018-07-31] MEDS: PROMETHAZINE INJ 25 MG/ML (PHENERGAN) AMP IV PRN ×4 (08:38→22:47)
[2018-07-31] MEDS: POTASSIUM CL 10MEQ/50ML IVPB 50 ML IV SCH ×2 (11:44→13:28)
[2018-07-31 12:00] VITALS: BP 143/60
[2018-07-31] MEDS: diphenhydrAMINE 50 MG/ML INJ (BENADRYL) IVP PRN ×3 (14:00→22:47)
[2018-07-31] MEDS ORDERED: OXYC10TA7 PO (14:37)
[2018-07-31] MEDS ORDERED: AMLO5TAB7 PO (14:37)
[2018-07-31] MEDS ORDERED: INSU100I29 SQ (14:37)
[2018-07-31] MEDS: GABAPENTIN 400 MG (NEURONTIN) CAP PO SCH ×2 (14:49→20:36)
[2018-07-31] MEDS: PANTOPRAZOLE 20 MG TABLET (PROTONIX) PO SCH (14:49)
[2018-07-31 15:40] VITALS: BP 161/77
--- NOTE | 2018-07-31 15:49 | History & Physicial ([facility]) ---
BRIAN WIN MEDICAL STUDENT 07/31/18 3:49pm: HPI History of Present Illness: 58 yo white woman presented to the ED last night in DKA, with RLQ abdominal pain and N/V/D since Wednesday. Pt states she was diagnosed with Type 2 DM 30 years ago, but more recently Natalya Landry thinks she is actually Type 1. Pt has had multiple hospitalizations for high blood sugars before. She takes Levemir 40 units qd and Novolog sliding scale. This morning, pt is feeling dizzy and just ate breakfast to get her sugars up. Pt had nausea and vomiting after breakfast. Pt still notes abdominal pain, rating it as a 7 out 10 on the pain scale. Pt's morning bowel movement was still loose today. Source: patient Exam Limitations: no limitations Date seen by provider: Jul 31, 2018 Time Seen by Provider: 13:00 Attending Physician Tabatha Covarrubias MD PCP Fide Dyer DO Consult Date of Admission Jul 31, 2018 at 01:45 Home Medications Home Medications Reviewed patient Home Medication Reconciliation performed by pharmacy medication reconciliations coordinate measuring machine technician and/or nursing. Patients Allergies have been reviewed. Allergies Coded Allergies: ketorolac (Verified Allergy, Severe, ANAPHYLAXIS, PT TAKES ASA AT HOME, ) ondansetron (Verified Allergy, Intermediate, RASH, 07/19/14) RASH/ HIVES exenatide (Verified Allergy, Unknown, NAUSEA, 07/19/14) NON STOP VOMITING latex (Verified Allergy, Unknown, RASH, 07/19/14) metoclopramide (Verified Allergy, Unknown, RESTLESS LEGS, 07/19/14) PUU-Kaxxem-Dotktr Hx Patient Social History Marrital Status: single Living Status: Lives alone Employed/Student: unemployed (on disability) Alcohol Use: Denies Use Recreational Drug Use: No Smoking Status: Former Smoker Type Used: Cigarettes 2nd Hand Smoke Exposure: No Recent Foreign Travel: No Contact w/other who traveled: No Recent Hopitalizations: No Recent Infectious Disease Expo: No Physical Abuse Screen: No Sexual Abuse: No Immunizations Up To Date Tetanus Booster (TDap): Unknown Date of Pneumonia Vaccine: Dec 12, 2013 Date of Influenza Vaccine: Sep 07, 2017 Past Medical History Past Medical History 1. Diabetes Mellitus Type 2 w/ multiple hospitalizations for severe hyperglycemia w/o DKA, easily controlled on admission and administration of insulin. 2. Hypertension 3.Hyperlipidemia 4.Chronic Kidney Disease 5. Irritable Bowel Disorder 6. Fibromyalgia 7.Psoriasis 8.chronic neck and back pain- on chronic narcotics being decreased as outpatient 9. hx of blood clots in the upper extremities 10. Anxiety 11. Tobaccoism 12. 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 GERD 14. Diverticulosis PSH: 1.Renal stent 2.cholecystectomy 3.Laminectomy 5.ear tubes as a child Family Medical History Significant Family History: No Pertinent Family Hx Family History: Cancer of mouth 19 FATHER ( of esophogeal cancer.) Cardiovascular disease 19 MOTHER G8 BROTHER Completed stroke 19 FATHER G8 BROTHER Diabetes mellitus G8 BROTHER FH: lung cancer 19 MOTHER Hypertension 19 FATHER Kidney disease 19 FATHER Myocardial infarction 19 MOTHER G8 BROTHER Respiratory disorder No Family History of: AIDS Review of Systems ([facility]) Constitutional: dizziness Respiratory: no symptoms reported Cardiovascular: no symptoms reported Gastrointestinal: abdominal pain (RLQ), diarrhea, nausea, vomiting, other ( choking on food and water) : No Musculoskeletal: back pain, joint pain (hips), neck pain Reviewed Test Results Reviewed Test Results Lab Laboratory Tests Test 07/31/18 00:17 07/31/18 01:19 07/31/18 01:57 07/31/18 02:54 Range/Units White Blood Count 13.1 H 4.3-11.0 10^3/uL Red Blood Count 4.81 4.35-5.85 10^6/uL Hemoglobin 14.6 11.5-16.0 G/DL Hematocrit 42 35-52 % Mean Corpuscular Volume 87 80-99 FL Mean Corpuscular Hemoglobin 30 25-34 PG Mean Corpuscular Hemoglobin Concent 35 32-36 G/DL Red Cell Distribution Width 13.2 10.0-14.5 % Platelet Count 332 130-400 10^3/uL Mean Platelet Volume 10.3 7.4-10.4 FL Neutrophils (%) (Auto) 67 42-75 % Lymphocytes (%) (Auto) 27 12-44 % Monocytes (%) (Auto) 4 0-12 % Eosinophils (%) (Auto) 1 0-10 % Basophils (%) (Auto) 1 0-10 % Neutrophils # (Auto) 8.7 H 1.8-7.8 X 10^3 Lymphocytes # (Auto) 3.6 1.0-4.0 X 10^3 Monocytes # (Auto) 0.6 0.0-1.0 X 10^3 Eosinophils # (Auto) 0.2 0.0-0.3 10^3/uL Basophils # (Auto) 0.1 0.0-0.1 10^3/uL Sodium Level 137 135-145 MMOL/L Potassium Level 4.1 3.6-5.0 MMOL/L Chloride Level 102 98-107 MMOL/L Carbon Dioxide Level 18 L 21-32 MMOL/L Anion Gap 17 H 5-14 MMOL/L Blood Urea Nitrogen 17 7-18 MG/DL Creatinine 1.17 0.60-1.30 MG/DL Estimat Glomerular Filtration Rate 47 BUN/Creatinine Ratio 15 Glucose Level 516 *H 70-105 MG/DL Calcium Level 9.6 8.5-10.1 MG/DL Corrected Calcium 9.4 8.5-10.1 MG/DL Total Bilirubin 0.6 0.1-1.0 MG/DL Aspartate Amino Transf (AST/SGOT) 11 5-34 U/L Alanine Aminotransferase (ALT/SGPT) 14 0-55 U/L Alkaline Phosphatase 82 40-136 U/L Total Protein 7.1 6.4-8.2 GM/DL Albumin 4.2 3.2-4.5 GM/DL Amylase Level 27 25-125 U/L Lipase 25 8-78 U/L Urine Color YELLOW Urine Clarity CLEAR Urine pH 6 5-9 Urine Specific [place] 1.015 L 1.016-1.022 Urine Protein 3+ H NEGATIVE Urine Glucose (UA) 4+ H NEGATIVE Urine Ketones 3+ H NEGATIVE Urine Nitrite NEGATIVE NEGATIVE Urine Bilirubin NEGATIVE NEGATIVE Urine Urobilinogen NORMAL NORMAL MG/DL Urine Leukocyte Esterase 1+ H NEGATIVE Urine RBC (Auto) NEGATIVE NEGATIVE Urine RBC NONE /HPF Urine WBC RARE /HPF Urine Squamous Epithelial Cells 2-5 /HPF Urine Crystals NONE /LPF Urine Bacteria NEGATIVE /HPF Urine Casts PRESENT /LPF Urine Hyaline Casts 0-2 H /LPF Urine Mucus MODERATE H /LPF Urine Culture Indicated NO Blood Gas Puncture Site RIGHT RADIAL Blood Gas Patient Temperature 98.0 Arterial Blood pH 7.36 L 7.37-7.43 Arterial Blood Partial Pressure CO2 33 L 35-45 MMHG Arterial Blood Partial Pressure O2 72 L 79-93 MMHG Arterial Blood HCO3 19 L 23-27 MMOL/L Arterial Blood Total CO2 19.6 L 21.0-31.0 MMOL/L Arterial Blood Oxygen Saturation 94 94-100 % Arterial Blood Base Excess -5.9 L -2.5-2.5 MMOL/L Antonio Test YES-POS Blood Gas Ventilator Setting NO Blood Gas Inspired Oxygen ROOM AIR Glucometer 377 H 70-110 MG/DL Test 07/31/18 04:24 07/31/18 06:00 07/31/18 07:58 07/31/18 08:35 Range/Units Glucometer 243 H 47 *L 119 H 70-110 MG/DL White Blood Count 16.8 H 4.3-11.0 10^3/uL Red Blood Count 4.34 L 4.35-5.85 10^6/uL Hemoglobin 13.3 11.5-16.0 G/DL Hematocrit 38 35-52 % Mean Corpuscular Volume 86 80-99 FL Mean Corpuscular Hemoglobin 31 25-34 PG Mean Corpuscular Hemoglobin Concent 36 32-36 G/DL Red Cell Distribution Width 13.0 10.0-14.5 % Platelet Count 313 130-400 10^3/uL Mean Platelet Volume 9.5 7.4-10.4 FL Neutrophils (%) (Auto) 61 42-75 % Lymphocytes (%) (Auto) 32 12-44 % Monocytes (%) (Auto) 6 0-12 % Eosinophils (%) (Auto) 2 0-10 % Basophils (%) (Auto) 0 0-10 % Neutrophils # (Auto) 10.2 H 1.8-7.8 X 10^3 Lymphocytes # (Auto) 5.3 H 1.0-4.0 X 10^3 Monocytes # (Auto) 0.9 0.0-1.0 X 10^3 Eosinophils # (Auto) 0.3 0.0-0.3 10^3/uL Basophils # (Auto) 0.1 0.0-0.1 10^3/uL Neutrophils % (Manual) 44 % Lymphocytes % (Manual) 48 % Monocytes % (Manual) 6 % Eosinophils % (Manual) 2 % Blood Morphology Comment NORMAL Sodium Level 144 135-145 MMOL/L Potassium Level 3.2 L 3.6-5.0 MMOL/L Chloride Level 113 #H 98-107 MMOL/L Carbon Dioxide Level 21 21-32 MMOL/L Anion Gap 10 5-14 MMOL/L Blood Urea Nitrogen 16 7-18 MG/DL Creatinine 0.85 0.60-1.30 MG/DL Estimat Glomerular Filtration Rate > 60 BUN/Creatinine Ratio 19 Glucose Level 85 70-105 MG/DL Calcium Level 9.2 8.5-10.1 MG/DL Corrected Calcium 9.4 8.5-10.1 MG/DL Total Bilirubin 0.5 0.1-1.0 MG/DL Aspartate Amino Transf (AST/SGOT) 10 5-34 U/L Alanine Aminotransferase (ALT/SGPT) 13 0-55 U/L Alkaline Phosphatase 69 40-136 U/L Total Protein 6.3 L 6.4-8.2 GM/DL Albumin 3.8 3.2-4.5 GM/DL Test 07/31/18 12:03 07/31/18 15:44 Range/Units Glucometer 332 H 225 H 70-110 MG/DL Radiology Abdomen/Pelvis CT without contrast showed bilateral renal cysts, diverticulosis , and no appendicitis. Physical Exam-([facility]) Physical Exam Vital Signs VS - Last 72 Hours, by Label 07/30/18 07/31/18 07/31/18 07/31/18 22:13 02:55 03:00 03:23 Temp 98.0 Pulse 91 88 72 Resp 20 20 B/P (MAP) 146/81 (102) 133/74 Pulse Ox 97 96 O2 Delivery Room Air Room Air 07/31/18 07/31/18 07/31/18 07/31/18 04:00 04:06 07:00 08:00 Temp 98.1 98.2 Pulse 81 90 61 65 Resp 16 20 B/P (MAP) 116/68 (84) 117/57 (77) Pulse Ox 94 96 93 O2 Delivery Room Air Room Air FiO2 21 07/31/18 12:00 Temp 99.2 Pulse 69 Resp 20 B/P (MAP) 143/60 (87) Pulse Ox 95 O2 Delivery Room Air Capillary Refill : Less Than 3 Seconds Temperature (Fahrenheit): 98.2 General Appearance: no apparent distress Respiratory: lungs clear, normal breath sounds Cardiovascular: regular rate, rhythm, no gallop, no murmur Gastrointestinal: normal bowel sounds, tenderness (to palpation in RLQ and epigastric region) Assessment/Plan Assessment/Plan Admission Dx DKA, Abdominal Pain, N/V/D Admission Status: Inpatient Order (span 2 midnights) Reason for Inpatient Admission: DKA, Abdominal Pain, N/V/D Assessment & Plan 1. Diabetic Ketoacidosis d/t Viral Gastroenteritis Informed pt that she likely has a viral gastroenteritis that caused stress on her body, putting her into DKA. Will give her phenergan/benadryl for her nausea and decrease her fluids to 100ml/hr. Will keep her on sliding scale of insulin, and give IV potassium 40 mEq/hr to bring her potassium levels back up. Clinical Quality Measures DVT/VTE Risk/Contraindication: Risk Factor Score Per Nursin RFS Level Per Nursing on Admit: 2=Moderate TABATHA COVARRUBIAS MD 07/31/18 4:24pm: Home Medications Allergies Coded Allergies: ketorolac (Verified Allergy, Severe, ANAPHYLAXIS, PT TAKES ASA AT HOME, ) ondansetron (Verified Allergy, Intermediate, RASH, 07/19/14) RASH/ HIVES exenatide (Verified Allergy, Unknown, NAUSEA, 07/19/14) NON STOP VOMITING latex (Verified Allergy, Unknown, RASH, 07/19/14) metoclopramide (Verified Allergy, Unknown, RESTLESS LEGS, 07/19/14) AAP-Dsfkgt-Rpmysj Hx Family Medical History Family History: Cancer of mouth 19 FATHER ( of esophogeal cancer.) Cardiovascular disease 19 MOTHER G8 BROTHER Completed stroke 19 FATHER G8 BROTHER Diabetes mellitus G8 BROTHER FH: lung cancer 19 MOTHER Hypertension 19 FATHER Kidney disease 19 FATHER Myocardial infarction 19 MOTHER G8 BROTHER Respiratory disorder No Family History of: AIDS Physical Exam-([facility]) Physical Exam Neurologic/Psychiatric: alert, normal mood/affect Assessment/Plan Assessment/Plan (1) Diabetic ketoacidosis Status: Acute Assessment & Plan: pH low, bicarb low and with anion gap acidosis on admission. Improved with subcutaneous insulin overnight. Low blood sugar this am and gap closed. Unable to tolerate much oral intake yet, will hold long- acting insulin and lower dose sliding scale. Holding home metformin until clinical improvement. Qualifiers: (2) Nausea vomiting and diarrhea Status: Acute Assessment & Plan: Suspect viral gastroenteritis. Supportive care. Cannot tolerate ondansetron or reglan due to reactions. Has restless legs with promethazine which she uses at home at times, takes diphenhydramine with it for the restless legs, ordered IV as she is not tolerating PO well and needing promethazine to keep down food. Continue IVF. (3) DVT prophylaxis Status: Acute Assessment & Plan: SCDs Supervisory-Addendum Brief Supervisory Addendum Patient interviewed and examined by me along with MSCynthia Win today. Agree with documentation unless otherwise noted and/or with my additions. See problem list for my assessment and plan. BRIAN WIN MEDICAL STUDENT Jul 31, 2018 3:49 pm TABATHA COVARRUBIAS MD Jul 31, 2018 4:24 pm
[2018-07-31 19:05] VITALS: BP 165/77
[2018-07-31] MEDS: oxyCODONE/APAP 10/325MG (PERCOCET 10) TABLET PO PRN (20:35)
[2018-07-31] MEDS: ATORVASTATIN 40 MG (LIPITOR) TABLET PO SCH (20:36)
[2018-08-01 00:02] VITALS: BP 147/64
[2018-08-01] MEDS: fentaNYL INJECTION 100 MCG/2 ML AMP IV PRN ×4 (01:13→08:51)
[2018-08-01] MEDS: NS IV 1000 ML 1,000 ML IV SCH (01:13)
[2018-08-01 04:08] VITALS: BP 149/77
[2018-08-01] MEDS: diphenhydrAMINE 50 MG/ML INJ (BENADRYL) IVP PRN ×3 (04:27→17:40)
[2018-08-01] MEDS: PROMETHAZINE INJ 25 MG/ML (PHENERGAN) AMP IV PRN ×4 (04:27→17:40)
[2018-08-01 05:50] LABS: HEMOGLOBIN 13.7 G/DL (11.5-16.0); MEAN PLATELET VOLUME 10.2 FL (7.4-10.4); RED BLOOD COUNT 4.45 10^6/uL (4.35-5.85); RED CELL DISTRIBUTION WIDTH 13.1 % (10.0-14.5); WHITE BLOOD COUNT 13.2 10^3/uL (4.3-11.0)
[2018-08-01] MEDS: PANTOPRAZOLE 20 MG TABLET (PROTONIX) PO SCH (06:03)
[2018-08-01 06:08] LABS: CREATININE SERUM 1.04 MG/DL (0.60-1.30); POTASSIUM 3.6 MMOL/L (3.6-5.0)
[2018-08-01] MEDS: inSUlin ASPART (NovoLOG) 1 UNIT/0.01 ML (CHARGE PER UNIT) SC SCH ×4 (06:12→20:22)
[2018-08-01] MEDS ORDERED: PROCHLORPERAZINE 25 MG (COMPAZINE) SUPP PR PRN (06:15)
[2018-08-01] MEDS ORDERED: inSUlin DETERMIR 1 UNIT/0.01 ML (LEVEMIR) CHARGE PER UNIT SQ ONE (06:15)
[2018-08-01] MEDS ORDERED: MECLIZINE 25 MG (ANTIVERT) TAB PO PRN (06:15)
[2018-08-01 08:00] VITALS: BP 179/85
[2018-08-01] MEDS: GABAPENTIN 400 MG (NEURONTIN) CAP PO SCH ×3 (10:09→20:22)
[2018-08-01] MEDS: ASPIRIN E.C. 81 MG (ECOTRIN) TAB PO SCH (10:10)
[2018-08-01] MEDS: oxyCODONE/APAP 10/325MG (PERCOCET 10) TABLET PO PRN ×2 (10:10→16:02)
[2018-08-01] MEDS: NS W/KCL 20 MEQ/L 1,000 ML IV SCH ×3 (10:12→21:12)
[2018-08-01] MEDS: PANTOPRAZOLE 40 MG (PROTONIX) VIAL IV SCH (11:07)
[2018-08-01 12:00] VITALS: BP 162/78
[2018-08-01] MEDS ORDERED: morphine INJ 4 MG/ML 1 ML (VIAL/SYRINGE) IVP NR (12:01)
--- NOTE | 2018-08-01 12:02 | Progress Note (SOAP) ---
LATESHA ZAIDI MEDICAL STUDENT 08/01/18 1202: Subjective Subjective/Events-last exam Pt reports a dull chest pain all over. She states the pain does not radiate. EKG this morning showed normal sinus rhythm. Pt c/o frequent vomiting and believes she saw blood in her vomit. She requests more IV diphenhydramine/ phenergan for her nausea because the oral meclizine didn't work at all. Pt reports continued diarrhea this morning. Pt notes that she has previously been worked up many times for gastroparesis and nothing abnormal was found. Review of Systems Date Seen by Provider: Aug 01, 2018 Time Seen by Provider: 09:45 Cardiovascular: Chest Pain Gastrointestinal: Nausea, Vomiting, Diarrhea Musculoskeletal: shoulder pain, back pain Focused Exam Respiratory: Chest Non Tender, Normal Breath Sounds Cardiovascular: Regular Rate, Rhythm, No Gallop, No Murmur Skin: normal color Objective Exam Last Set of Vital Signs Vital Signs Date Time Temp Pulse Resp B/P (MAP) Pulse Ox O2 Delivery O2 Flow Rate FiO2 08/01/18 08:00 99.6 92 18 179/85 (116) 96 Room Air 07/31/18 04:06 21 Capillary Refill : Less Than 3 Seconds I&O Intake and Output 08/01/18 00:00 Intake Total 3470 ml Output Total 1352 ml Balance 2118 ml Intake Oral 1270 ml IV Total 2200 ml Output Urine Total 1350 ml Emesis 2 ml # Voids 2 Daily Weight Change No General: Alert, Oriented X3, Cooperative Lungs: Clear to Auscultation Heart: Regular Rate, No Murmurs Abdomen: Normal Bowel Sounds Results/Procedures Lab Laboratory Tests 07/31/18 12:03: Glucometer 332H 07/31/18 15:44: Glucometer 225H 07/31/18 20:30: Glucometer 295H 08/01/18 05:30: White Blood Count 13.2H, Red Blood Count 4.45, Hemoglobin 13.7, Hematocrit 38, Mean Corpuscular Volume 86, Mean Corpuscular Hemoglobin 31, Mean Corpuscular Hemoglobin Concent 36, Red Cell Distribution Width 13.1, Platelet Count 286, Mean Platelet Volume 10.2, Sodium Level 137, Potassium Level 3.6, Chloride Level 104, Carbon Dioxide Level 17L, Anion Gap 16H, Blood Urea Nitrogen 9, Creatinine 1.04, Estimat Glomerular Filtration Rate 54, BUN/Creatinine Ratio 9, Glucose Level 469*H, Calcium Level 9.0 08/01/18 10:45: Glucometer 310H Radiology Assessment/Plan Assessment/Plan Admission Dx DKA, Abdominal Pain, N/V/D Admission Status: Observation Reason for Inpatient Admission: DKA, Abdominal Pain, N/V/D Assessment & Plan 1. Diabetic Ketoacidosis d/t Viral Gastroenteritis Occult blood test of vomit to reassure pt there is no blood. Will d/c Fentanyl as this could be causing her nausea. Phenergan/benadryl worked but did not last long. She was not able to keep meclizine down, so I advised pt to try the compazine suppository. Will increase her fluids to 150ml/hr and add 20 MEq of KCl to the NS. Famotidine and Protonix by IV. Clinical Quality Measures DVT/VTE Risk/Contraindication: Risk Factor Score Per Nursin RFS Level Per Nursing on Admit: 2=Moderate TABATHA COVARRUBIAS MD 08/01/18 1356: Subjective Subjective/Events-last exam Patient reports persistent vomiting and inability to take anything orally, but also is not interested in trying Compazine suppository because it "doesn't help ", or scoplamine patch because it will irritate her skin. She is complaining of pain all over and requesting IV pain medication frequently since she cannot take her oral oxycodone. Review of Systems Time Seen by Provider: 10:10 Assessment/Plan Assessment/Plan Assessment & Plan Clinic records reviewed and patient has had persistent issues with nausea and in fact had appointment today with GI. Will contact their office to reschedule. Consider erythromycin in spite of reported negative GET due to protracted nature of illness, but she states she "won't" take anything orally today. Hemoccult vomit. No diarrhea has been observed by staff, nursing will request she let them know when it occurs so we can confirm amount. Blood sugar elevated again this am, given 10 units of long acting along with sliding scale, may need further doses of long-acting to get baseline down in spite of her poor intake. Supervisory-Addendum Brief Supervisory Addendum Patient interviewed and examined with MS3 Latesha Zaidi today, agree with documentation unless otherwise noted. LATESHA ZAIDI MEDICAL STUDENT Aug 01, 2018 12:02 TABATHA COVARRUBIAS MD Aug 01, 2018 13:56
[2018-08-01] MEDS: diphenhydrAMINE 50 MG/ML INJ (BENADRYL) IVP NR ×2 (12:13→13:44)
[2018-08-01] MEDS ORDERED: FAMOTIDINE 20MG/2ML IV (PEPCID) IVP SCH (13:45)
[2018-08-01] MEDS: raNItidine 50 MG/NS 50 ML IVPB IV SCH ×4 (15:55→21:18)
[2018-08-01 16:00] VITALS: BP 156/79
[2018-08-01] MEDS: morphine INJ 4 MG/ML 1 ML (VIAL/SYRINGE) IVP PRN ×2 (17:19→21:19)
[2018-08-01 20:00] VITALS: BP 194/92
[2018-08-01] MEDS: ATORVASTATIN 40 MG (LIPITOR) TABLET PO SCH (20:22)
[2018-08-01] MEDS ORDERED: meTOprolol 5 MG/5 ML (LOPRESSOR) VIAL IV ONE (23:00)
[2018-08-02] VITALS: BP 189/76
[2018-08-02] MEDS: diphenhydrAMINE 50 MG/ML INJ (BENADRYL) IVP PRN ×4 (00:05→14:39)
[2018-08-02] MEDS: PROMETHAZINE INJ 25 MG/ML (PHENERGAN) AMP IV PRN ×4 (00:05→14:38)
[2018-08-02] MEDS: morphine INJ 4 MG/ML 1 ML (VIAL/SYRINGE) IVP PRN ×2 (01:41→06:48)
[2018-08-02 04:01] VITALS: BP 163/70
[2018-08-02] MEDS: raNItidine 50 MG/NS 50 ML IVPB IV SCH ×4 (05:12→14:38)
[2018-08-02 05:20] LABS: HEMOGLOBIN 13.5 G/DL (11.5-16.0); MEAN PLATELET VOLUME 10.2 FL (7.4-10.4); RED BLOOD COUNT 4.45 10^6/uL (4.35-5.85); RED CELL DISTRIBUTION WIDTH 13.1 % (10.0-14.5); WHITE BLOOD COUNT 14.6 10^3/uL (4.3-11.0)
[2018-08-02 05:36] LABS: ALANINE AMINOTRANSFERASE 12 U/L (0-55); ALBUMIN 3.9 GM/DL (3.2-4.5); ALKALINE PHOSPHATASE 70 U/L (40-136); BILIRUBIN,TOTAL 0.9 MG/DL (0.1-1.0); BUN/CREATININE RATIO 11; CALCIUM 9.1 MG/DL (8.5-10.1); CARBON DIOXIDE 16 MMOL/L (21-32); CHLORIDE 103 MMOL/L (98-107); CREATININE SERUM 0.93 MG/DL (0.60-1.30); GFR ESTIMATED > 60; GLUCOSE 352 MG/DL (70-105); POTASSIUM 3.6 MMOL/L (3.6-5.0); SODIUM 136 MMOL/L (135-145); TOTAL PROTEIN 6.8 GM/DL (6.4-8.2)
[2018-08-02] MEDS: inSUlin ASPART (NovoLOG) 1 UNIT/0.01 ML (CHARGE PER UNIT) SC SCH ×3 (05:44→16:22)
[2018-08-02] MEDS: NS W/KCL 20 MEQ/L 1,000 ML IV SCH ×3 (06:23→16:23)
[2018-08-02 07:33] LABS: OCCULT BLOOD,GASTRIC FLUID POSITIVE
[2018-08-02 08:00] VITALS: BP 126/74
[2018-08-02] MEDS: GABAPENTIN 400 MG (NEURONTIN) CAP PO SCH ×3 (08:34→12:28)
[2018-08-02] MEDS: ASPIRIN E.C. 81 MG (ECOTRIN) TAB PO SCH (08:34)
[2018-08-02] MEDS: oxyCODONE/APAP 10/325MG (PERCOCET 10) TABLET PO PRN ×2 (08:35→12:43)
[2018-08-02] MEDS: PANTOPRAZOLE 40 MG (PROTONIX) VIAL IV SCH (08:35)
[2018-08-02] MEDS ORDERED: inSUlin DETERMIR 1 UNIT/0.01 ML (LEVEMIR) CHARGE PER UNIT SQ SCH (09:00)
--- NOTE | 2018-08-02 10:17 | History & Physicial (CHS) ---
HPI History of Present Illness: Pt reports feeling much better today. She states she still has felt nauseous but has not vomited this morning. Pt does not want to eat breakfast until she gets another dose of phenergan/benadryl. Pt states meclazine and compazine have helped her nausea. Pt states she threw up her percocet, so she requested something else. Morphine 2mg IVP q4h helped her pain, but "doesn't last long enough". Pt notes that she is no longer having chest pain and her headache from last night has resolved. She asks whether she needs to follow up on the ovarian cyst that was discovered in the ER. Source: patient Exam Limitations: no limitations Date seen by provider: Aug 02, 2018 Time Seen by Provider: 09:00 Attending Physician Alena Li MD PCP Fdie Dyer DO Consult Date of Admission Jul 31, 2018 at 01:45 Home Medications Home Medications Reviewed patient Home Medication Reconciliation performed by pharmacy medication reconciliations orthotic finish grinding technician and/or nursing. Patients Allergies have been reviewed. Allergies Coded Allergies: ketorolac (Verified Allergy, Severe, ANAPHYLAXIS, PT TAKES ASA AT HOME, ) ondansetron (Verified Allergy, Intermediate, RASH, 07/19/14) RASH/ HIVES exenatide (Verified Allergy, Unknown, NAUSEA, 07/19/14) NON STOP VOMITING latex (Verified Allergy, Unknown, RASH, 07/19/14) metoclopramide (Verified Allergy, Unknown, RESTLESS LEGS, 07/19/14) [id number] Hx Patient Social History Marrital Status: single Living Status: Lives alone Employed/Student: unemployed (on disability) Alcohol Use: Denies Use Recreational Drug Use: No Smoking Status: Former Smoker Type Used: Cigarettes 2nd Hand Smoke Exposure: No Recent Foreign Travel: No Contact w/other who traveled: No Recent Hopitalizations: No Recent Infectious Disease Expo: No Physical Abuse Screen: No Sexual Abuse: No Immunizations Up To Date Tetanus Booster (TDap): Unknown Date of Pneumonia Vaccine: Dec 12, 2013 Date of Influenza Vaccine: Sep 07, 2017 Past Medical History Past Medical History 1. Diabetes Mellitus Type 2 w/ multiple hospitalizations for severe hyperglycemia w/o DKA, easily controlled on admission and administration of insulin. 2. Hypertension 3.Hyperlipidemia 4.Chronic Kidney Disease 5. Irritable Bowel Disorder 6. Fibromyalgia 7.Psoriasis 8.chronic neck and back pain- on chronic narcotics being decreased as outpatient 9. hx of blood clots in the upper extremities 10. Anxiety 11. Tobaccoism 12. 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 GERD 14. Diverticulosis PSH: 1.Renal stent 2.cholecystectomy 3.Laminectomy 5.ear tubes as a child Family Medical History Significant Family History: No Pertinent Family Hx Family History: Cancer of mouth 19 FATHER ( of esophogeal cancer.) Cardiovascular disease 19 MOTHER G8 BROTHER Completed stroke 19 FATHER G8 BROTHER Diabetes mellitus G8 BROTHER FH: lung cancer 19 MOTHER Hypertension 19 FATHER Kidney disease 19 FATHER Myocardial infarction 19 MOTHER G8 BROTHER Respiratory disorder No Family History of: AIDS Review of Systems (CHC) Constitutional: no symptoms reported Respiratory: no symptoms reported Cardiovascular: no symptoms reported Gastrointestinal: abdominal pain (RLQ, epigastric) : No Musculoskeletal: no symptoms reported Reviewed Test Results Reviewed Test Results Lab Laboratory Tests 08/01/18 10:45: Glucometer 310H 08/01/18 12:30: Gastric Fluid Occult Blood POSITIVEH 08/01/18 16:41: Glucometer 219H 08/01/18 20:02: Glucometer 164H 08/02/18 05:10: White Blood Count 14.6H, Red Blood Count 4.45, Hemoglobin 13.5, Hematocrit 38, Mean Corpuscular Volume 86, Mean Corpuscular Hemoglobin 30, Mean Corpuscular Hemoglobin Concent 35, Red Cell Distribution Width 13.1, Platelet Count 272, Mean Platelet Volume 10.2, Sodium Level 136, Potassium Level 3.6, Chloride Level 103, Carbon Dioxide Level 16L, Anion Gap 17H, Blood Urea Nitrogen 10, Creatinine 0.93, Estimat Glomerular Filtration Rate > 60, BUN/Creatinine Ratio 11, Glucose Level 352H, Glucometer 333H, Calcium Level 9.1, Corrected Calcium 9.2, Total Bilirubin 0.9, Aspartate Amino Transf (AST/SGOT) 11, Alanine Aminotransferase (ALT/SGPT) 12, Alkaline Phosphatase 70, Total Protein 6.8, Albumin 3.9 Radiology Physical Exam-([facility]) Physical Exam Vital Signs VS - Last 72 Hours, by Label 07/30/18 07/31/18 07/31/18 07/31/18 22:13 02:55 03:00 03:23 Temp 98.0 Pulse 91 88 72 Resp 20 20 B/P (MAP) 146/81 (102) 133/74 Pulse Ox 97 96 O2 Delivery Room Air Room Air 07/31/18 07/31/18 07/31/18 07/31/18 04:00 04:06 07:00 08:00 Temp 98.1 98.2 Pulse 81 90 61 65 Resp 16 20 B/P (MAP) 116/68 (84) 117/57 (77) Pulse Ox 94 96 93 O2 Delivery Room Air Room Air FiO2 21 07/31/18 07/31/18 07/31/18 07/31/18 12:00 15:40 19:00 19:02 Temp 99.2 97.0 Pulse 69 68 75 Resp 20 20 B/P (MAP) 143/60 (87) 161/77 (105) Pulse Ox 95 94 95 O2 Delivery Room Air Room Air Room Air 07/31/18 07/31/18 08/01/18 08/01/18 19:05 21:29 00:02 01:00 Temp 99.4 98.9 97.5 Pulse 69 69 71 Resp 20 17 B/P (MAP) 165/77 (106) 147/64 (91) Pulse Ox 94 95 O2 Delivery Room Air Room Air 08/01/18 08/01/18 08/01/18 08/01/18 04:08 07:00 08:00 12:00 Temp 98.7 99.6 99.8 Pulse 79 94 92 98 Resp 19 18 18 B/P (MAP) 149/77 (101) 179/85 (116) 162/78 (106) Pulse Ox 94 96 93 O2 Delivery Room Air Room Air Room Air 08/01/18 08/01/18 08/01/18 08/01/18 13:00 16:00 19:00 19:08 Temp 99.5 Pulse 88 79 82 Resp 20 B/P (MAP) 156/79 (104) Pulse Ox 96 96 O2 Delivery Room Air Room Air 08/01/18 08/02/18 08/02/18 08/02/18 20:00 00:00 01:00 04:01 Temp 98.8 99.1 98.6 Pulse 80 75 71 77 Resp 20 20 20 B/P (MAP) 194/92 (126) 189/76 (113) 163/70 (101) Pulse Ox 96 98 95 O2 Delivery Room Air Room Air Room Air 08/02/18 08/02/18 07:00 07:49 Pulse 80 O2 Delivery Room Air Capillary Refill : Less Than 3 Seconds General Appearance: no apparent distress Respiratory: lungs clear, normal breath sounds, no respiratory distress Cardiovascular: regular rate, rhythm, no gallop, no murmur Gastrointestinal: tenderness (to palpation of RLQ and epigastric region) Assessment/Plan Assessment/Plan Admission Dx DKA, Abdominal Pain, N/V/D Admission Status: Observation Reason for Inpatient Admission: DKA, Abdominal Pain, N/V/D Assessment & Plan Clinic records reviewed and patient has had persistent issues with nausea and in fact had appointment today with GI. Will contact their office to reschedule. Consider erythromycin in spite of reported negative GET due to protracted nature of illness, but she states she "won't" take anything orally today. Hemoccult vomit. No diarrhea has been observed by staff, nursing will request she let them know when it occurs so we can confirm amount. Blood sugar elevated again this am, given 10 units of long acting along with sliding scale, may need further doses of long-acting to get baseline down in spite of her poor intake. Clinical Quality Measures DVT/VTE Risk/Contraindication: Risk Factor Score Per Nursin RFS Level Per Nursing on Admit: 2=Moderate BIRAN WIN MEDICAL STUDENT Aug 02, 2018 10:17
[2018-08-02] MEDS ORDERED: PROM25SU44 RC (10:32)
[2018-08-02] MEDS ORDERED: RANI-10 PO (10:32)
--- NOTE | 2018-08-02 10:33 | Progress Note (SOAP) ---
LATESHA ZAIDI MEDICAL STUDENT 08/02/18 1033: Subjective Subjective/Events-last exam Pt reports feeling much better today. She states she still has felt nauseous but has not vomited this morning. Pt does not want to eat breakfast until she gets another dose of phenergan/benadryl. Pt states meclazine and compazine have helped her nausea. Pt states she threw up her percocet, so she requested something else. Morphine 2mg IVP q4h helped her pain, but "doesn't last long enough". Pt notes that she is no longer having chest pain and her headache from last night has resolved. She asks whether she needs to follow up on the ovarian cyst that was discovered in the ER. Review of Systems Date Seen by Provider: Aug 02, 2018 Time Seen by Provider: 09:00 Cardiovascular: No: Chest Pain Gastrointestinal: Nausea Focused Exam Respiratory: Lungs Clear, Normal Breath Sounds Cardiovascular: Regular Rate, Rhythm, No Gallop, No Murmur Skin: normal color Objective Exam Last Set of Vital Signs Vital Signs Date Time Temp Pulse Resp B/P (MAP) Pulse Ox O2 Delivery O2 Flow Rate FiO2 08/02/18 07:49 Room Air 08/02/18 07:00 80 08/02/18 04:01 98.6 20 163/70 (101) 95 07/31/18 04:06 21 Capillary Refill : Less Than 3 Seconds I&O Intake and Output 08/02/18 00:00 Intake Total 2300 ml Output Total 1000 ml Balance 1300 ml Intake Oral 1300 ml IV Total 1000 ml Output Urine Total 1000 ml # Voids 2 # Bowel Movements 6 # Emeses 5 General: Alert, Oriented X3, Cooperative Lungs: Clear to Auscultation, Normal Air Movement Heart: Regular Rate, No Murmurs Abdomen: Normal Bowel Sounds, Other (tenderness to palpation of RLQ and epigastric region) Psych/Mental Status: Mental Status NL Results/Procedures Lab Laboratory Tests 08/01/18 10:45: Glucometer 310H 08/01/18 12:30: Gastric Fluid Occult Blood POSITIVEH 08/01/18 16:41: Glucometer 219H 08/01/18 20:02: Glucometer 164H 08/02/18 05:10: White Blood Count 14.6H, Red Blood Count 4.45, Hemoglobin 13.5, Hematocrit 38, Mean Corpuscular Volume 86, Mean Corpuscular Hemoglobin 30, Mean Corpuscular Hemoglobin Concent 35, Red Cell Distribution Width 13.1, Platelet Count 272, Mean Platelet Volume 10.2, Sodium Level 136, Potassium Level 3.6, Chloride Level 103, Carbon Dioxide Level 16L, Anion Gap 17H, Blood Urea Nitrogen 10, Creatinine 0.93, Estimat Glomerular Filtration Rate > 60, BUN/Creatinine Ratio 11, Glucose Level 352H, Glucometer 333H, Calcium Level 9.1, Corrected Calcium 9.2, Total Bilirubin 0.9, Aspartate Amino Transf (AST/SGOT) 11, Alanine Aminotransferase (ALT/SGPT) 12, Alkaline Phosphatase 70, Total Protein 6.8, Albumin 3.9 Radiology Assessment/Plan Assessment/Plan Admission Dx DKA, Abdominal Pain, N/V/D Admission Status: Observation Assessment & Plan Clinic records reviewed and patient has had persistent issues with nausea and in fact had appointment today with GI. Will contact their office to reschedule. Consider erythromycin in spite of reported negative GET due to protracted nature of illness, but she states she "won't" take anything orally today. Hemoccult vomit. No diarrhea has been observed by staff, nursing will request she let them know when it occurs so we can confirm amount. Blood sugar elevated again this am, given 10 units of long acting along with sliding scale, may need further doses of long-acting to get baseline down in spite of her poor intake. 1. Diabetic Ketoacidosis d/t Viral Gastroenteritis Continue phenergan/benadryl for nausea. Advised pt to try and eat breakfast, even if it needs to be broth or jello. Blood sugars were elevated to 352 this morning. Will give 20 units of Levemir along with sliding scale novolog since she is no longer vomiting. Will recheck acidosis on a repeat BMP this afternoon. Advised pt that she will need to schedule an EGD outpatient to investigate the occult blood in her vomit. I do not believe it is anything acute to worry about. Consider discharge this afternoon. 2. Hypertension Will continue to monitor blood pressure. Consider restarting her amlodipine 5mg should she stay another night. Clinical Quality Measures DVT/VTE Risk/Contraindication: Risk Factor Score Per Nursin RFS Level Per Nursing on Admit: 2=Moderate TABATHA COVARRUBIAS MD 9/11/18 2058: Supervisory-Addendum Brief Supervisory Addendum Patient interviewed and examined with MS3 Latesha Zaidi, agree with documentation unless otherwise noted. Patient has not vomited overnight and reported no nausea to nursing overnight. Discussed that if she is able to keep down liquids , would recommend follow up with GI outpatient. Recheck labs after lunch to determine disposition. LATESHA ZAIDI MEDICAL STUDENT Aug 02, 2018 10:33 TABATHA COVARRUBIAS MD Aug 02, 2018 20:58
[2018-08-02 12:00] VITALS: BP 141/73
[2018-08-02 13:19] LABS: CALCIUM 8.5 MG/DL (8.5-10.1); CREATININE SERUM 1.09 MG/DL (0.60-1.30); POTASSIUM 3.6 MMOL/L (3.6-5.0)
[2018-08-02 16:10] VITALS: BP 139/66
--- NOTE | 2018-08-02 20:54 | Discharge Instructions ---
Discharge Inst-[facility] Discharge Medications New, Converted or Re-Newed RX: Transmitted to Pharmacy New Medications: Promethazine HCl (Promethazine Suppository) 25 Mg Supp.rect 25 MG RC Q6H PRN for NAUSEA/VOMITING-1ST LINE, #90 SUPP.RECT 0 Refills Ranitidine HCl (Acid Control) 150 Mg Tablet 150 MG PO BID, #60 TAB 0 Refills Continued Medications: Amlodipine Besylate (Amlodipine Besylate) 5 Mg Tablet 5 MG PO DAILY Aspirin (Aspirin EC) 81 Mg Tablet.dr 81 MG PO DAILY, TAB Atorvastatin Calcium (Atorvastatin Calcium) 40 Mg Tablet 40 MG PO HS, TAB Gabapentin (Gabapentin) 800 Mg Tablet 800 MG PO TID Insulin Detemir (Levemir Flextouch) 100 Unit/1 Ml Insuln.pen 40 UNITS SQ HS for 1 Day, EA Insulin Lispro (Humalog Kwikpen) 100 Unit/1 Ml Insuln.pen SQ AC for SLIDING SCALE, EA SHE IS UNSURE OF HER SLIDING SCALE AND CAN NOT REMEMBER HOW MANY UNITS SHE TYPICALLY USES, SHE TESTS HER BLOOD SUGAR AND ENTERS HER CARBS AND HER METER TELLS HER HOW MANY UNITS OF INSULIN TO USE Linagliptin (Tradjenta) 5 Mg Tablet 5 MG PO DAILY, TAB Omeprazole Magnesium (Prilosec Otc) 20 Mg Tablet.dr 20 MG PO DAILY, TAB Oxycodone HCl (Oxycodone HCl) 10 Mg Tablet 10 MG PO DAILY PRN for PAIN-MODERATE TO SEVERE, TAB Oxycodone HCl/Acetaminophen (Oxycodone-Acetaminophen 10-325) 1 Each Tablet 1 TAB PO EVERY 4-6 HOURS PRN for PAIN-MODERATE, TAB Patient Instructions Goal/Follow Up Appt: Follow up at [facility] on 08/12 at 1040 am with Chacorta Landry. Patient Instructions: Eat or drink very small amounts every hour. Do not use your short acting insulin if you are not eating an adequate meal, but continue to use your long-acting insulin- for now use 20 units daily and check blood sugar every morning and after each mealtime. If fasting blood sugar is above 180, increase long-acting insulin to 30 units daily. If after meal blood sugar is persistently above 200, restart short acting insulin before your meals. [facility] to [facility] For: Fever, inability to keep down liquids. Activity & Diet Discharge Diet: Eat Small Frequent Meals, ADA Diet Copy Copies To 1: MARY JO Acosta BETHANY N MD Aug 02, 2018 10:36
--- NOTE | 2018-08-02 20:59 | Discharge Summary ---
Diagnosis/Chief Complaint Date of Admission Jul 31, 2018 at 01:45 Date of Discharge Aug 02, 2018 at 16:55 Admission Diagnosis Admission Diagnosis (1) Diabetic ketoacidosis (2) Nausea vomiting and diarrhea Discharge Diagnosis 1. Diabetic Ketoacidosis d/t Viral Gastroenteritis Patient initially thought to have viral gastroenteritis leading to DKA, however while inpatient, no diarrhea occurred. She reported allergy to zofran, seizures with Reglan, compazine "doesn't work" and insisted she must have IV benadryl with IV promethazine due to worsening of restless legs. She reported she could not use scopalamine because she was sure it would cause skin irritation. DKA resolved overnight with insulin. Ultimately on day of d/c she ate breakfast and lunch with no vomiting and CO2 was improved after lunch with no anion gap so she was discharged with script for rectal promethazine and instructed to use half of her normal dose of long-acting insulin with instructions to increase based on fasting glucose as oral intake improved. 2. Hypertension Will continue to monitor blood pressure. Consider restarting her amlodipine 5mg should she stay another night. 3. Chronic pain- receiving oxycodone from pain management, has substance agreement violation at clinic. She was resistant to trying oral medications repeatedly while inpatient and requested IV pain medication nearly always before due. After discontinuing her IV opiates, she did tolerate her oral oxycodone. Chief Complaint/HPI Chief Complaint/HPI Pt reports feeling much better today. She states she still has felt nauseous but has not vomited this morning. Pt does not want to eat breakfast until she gets another dose of phenergan/benadryl. Pt states meclazine and compazine have helped her nausea. Pt states she threw up her percocet, so she requested something else. Morphine 2mg IVP q4h helped her pain, but "doesn't last long enough". Pt notes that she is no longer having chest pain and her headache from last night has resolved. She asks whether she needs to follow up on the ovarian cyst that was discovered in the ER. Discharge Summary-Simple/Stand Consultations Discharge Physical Examination Allergies: Coded Allergies: ketorolac (Verified Allergy, Severe, ANAPHYLAXIS, PT TAKES ASA AT HOME, ) ondansetron (Verified Allergy, Intermediate, RASH, 07/19/14) RASH/ HIVES exenatide (Verified Allergy, Unknown, NAUSEA, 07/19/14) NON STOP VOMITING latex (Verified Allergy, Unknown, RASH, 07/19/14) metoclopramide (Verified Allergy, Unknown, RESTLESS LEGS, 07/19/14) Vitals & I&Os Vital Sign - Last 12Hours Date Time Temp Pulse Resp B/P (MAP) Pulse Ox O2 Delivery O2 Flow Rate FiO2 08/02/18 16:10 98.7 71 20 139/66 (90) 92 Room Air 07/31/18 04:06 21 Intake and Output 08/02/18 00:00 Intake Total 2000 ml Output Total 1000 ml Balance 1000 ml General Appearance: Alert, No Acute Distress Respiratory: Clear to Auscultation, Normal Air Movement Cardiovascular: Regular Rate, No Murmurs Neuro: Normal Speech Psych/Mental Status: Mental Status NL Hospital Course See final discharge diagnosis. Radiology Reviewed Discharge Instructions to patient/family Please see electronic discharge instructions given to patient. Discharge Medications Reviewed and agree with Discharge Medication list on patient's Discharge Instruction sheet Clinical Quality Measures DVT/VTE Risk/Contraindication: Risk Factor Score Per Nursin RFS Level Per Nursing on Admit: 2=Moderate Copy Copies To 1: MARY JO Acosta BETHANY N MD Aug 02, 2018 20:59
[2018-08-03] MEDS ORDERED: PROM25SU44 RC (08:50)
[2018-08-03] MEDS ORDERED: OMEP20CA12 PO (08:50)
[2018-08-03] MEDS ORDERED: GABA800T2 PO (08:50)
[2018-08-03] MEDS ORDERED: RANI150T11 PO (08:51)
[2018-08-04] MEDS ORDERED: AMLO10TA6 PO (11:06)
== END 2018-08-02 16:55 | disposition home or self-care (01) | DRG 639 ==
LOC: EDUNIT# 21:20 → ER 21:22 → 4TH 21:23 → UNDOADMIN 07-31 01:45 → OBSVTOIN 08-01 16:36 → UNDODISIN 08-02 16:55
PROVIDERS: ADMIT Family Medicine; ATTEND Family Medicine
DX: E11.10 Type 2 diabetes mellitus with ketoacidosis without coma (principal); A08.4 Viral intestinal infection, unspecified; I25.10 Atherosclerotic heart disease of native coronary artery without angina pectoris; E78.00 Pure hypercholesterolemia, unspecified; I12.9 Hypertensive chronic kidney disease with stage 1 through stage 4 chronic kidney disease, or unspecified chronic kidney disease; E11.42 Type 2 diabetes mellitus with diabetic polyneuropathy; E11.43 Type 2 diabetes mellitus with diabetic autonomic (poly)neuropathy; G43.909 Migraine, unspecified, not intractable, without status migrainosus; K21.9 Gastro-esophageal reflux disease without esophagitis; H91.90 Unspecified hearing loss, unspecified ear; F41.9 Anxiety disorder, unspecified; E78.5 Hyperlipidemia, unspecified; N18.9 Chronic kidney disease, unspecified; K58.0 Irritable bowel syndrome with diarrhea; M79.7 Fibromyalgia; L40.50 Arthropathic psoriasis, unspecified; K57.30 Diverticulosis of large intestine without perforation or abscess without bleeding; G25.81 Restless legs syndrome; Z79.4 Long term (current) use of insulin; Z87.891 Personal history of nicotine dependence; Z95.5 Presence of coronary angioplasty implant and graft; Z86.718 Personal history of other venous thrombosis and embolism
CPT/HCPCS: 36415; 74176; 80048; 80053; 81000; 82150; 82271; 82805; 82962; 83690; 85007; 85025; 85027; 94760; 96361; 96372; 96374; 96375; 96376; G0378

== ENCOUNTER 2018-08-03 01:06 | Observation (INO) | payer MEDICARE ==
[2018-08-03] VITALS (8 sets, daily range): BP systolic 126–198; BP diastolic 75–93
[~2018-08-03] VITALS: Ht 152.4 cm; Wt 72.6 kg
[~2018-08-03 01:06] MED LIST changes: +OMEP20TA33 PO; +RANI-10 PO
[2018-08-03] MEDS ORDERED: NS IV 1000 ML 1,000 ML IV ONE (01:12)
[2018-08-03] MEDS ORDERED: PANTOPRAZOLE 40 MG (PROTONIX) VIAL IV ONE (01:15)
[2018-08-03 01:22] LABS: BASOPHILS # (AUTO) 0.1 10^3/uL (0.0-0.1); BASOPHILS % (AUTO) 1 % (0-10); EOSINOPHILS # (AUTO) 0.3 10^3/uL (0.0-0.3); EOSINOPHILS % (AUTO) 2 % (0-10); HEMATOCRIT 39 % (35-52); HEMOGLOBIN 13.8 G/DL (11.5-16.0); LYMPHOCYTES # (AUTO) 3.5 X 10^3 (1.0-4.0); LYMPHOCYTES % (AUTO) 19 % (12-44); MEAN CORPUSCULAR HEMOGLOBIN 30 PG (25-34); MEAN CORPUSCULAR HGB CONC 35 G/DL (32-36); MEAN CORPUSCULAR VOLUME 86 FL (80-99); MEAN PLATELET VOLUME 10.1 FL (7.4-10.4); MONOCYTES # (AUTO) 0.6 X 10^3 (0.0-1.0); MONOCYTES % (AUTO) 3 % (0-12); NEUTROPHILS # (AUTO) 13.8 X 10^3 (1.8-7.8); NEUTROPHILS % (AUTO) 75 % (42-75); PLATELET COUNT 316 10^3/uL (130-400); RED BLOOD COUNT 4.55 10^6/uL (4.35-5.85); RED CELL DISTRIBUTION WIDTH 13.3 % (10.0-14.5); WHITE BLOOD COUNT 18.4 10^3/uL (4.3-11.0)
[2018-08-03] MEDS ORDERED: diphenhydrAMINE 50 MG/ML INJ (BENADRYL) IVP ONE (01:30)
[2018-08-03] MEDS ORDERED: SCOPOLAMINE 1.5 MG (TRANSDERM-SCOP) PATCH TD ONE (01:30)
[2018-08-03] MEDS ORDERED: PROMETHAZINE INJ 25 MG/ML (PHENERGAN) AMP IVP ONE (01:30)
[2018-08-03 01:31] LABS: PROTHROMBIN TIME PATIENT 13.2 SEC (12.2-14.7)
[2018-08-03 01:36] LABS: ABG BASE EXCESS -6.3 MMOL/L (-2.5-2.5); ABG OXYGEN SATURATION 99 % (94-100); ABG PCO2 25 MMHG (35-45); ABG PH 7.45 (7.37-7.43); ABG PO2 109 MMHG (79-93); ABG TCO2 17.7 MMOL/L (21.0-31.0)
[2018-08-03 01:40] LABS: ALLENS TEST YES-POS; INSPIRED O2 ROOM AIR; PATIENT TEMP 98.9; VENTILATOR NO
[2018-08-03 01:43] LABS: ALANINE AMINOTRANSFERASE 11 U/L (0-55); ALKALINE PHOSPHATASE 68 U/L (40-136); AMYLASE 36 U/L (25-125); BILIRUBIN,TOTAL 0.8 MG/DL (0.1-1.0); BUN/CREATININE RATIO 14; CALCIUM 9.2 MG/DL (8.5-10.1); CARBON DIOXIDE 18 MMOL/L (21-32); CHLORIDE 104 MMOL/L (98-107); CREATINE KINASE 34 U/L (29-168); CREATININE SERUM 1.05 MG/DL (0.60-1.30); GFR ESTIMATED 54; GLUCOSE 328 MG/DL (70-105); LIPASE 17 U/L (8-78); MAGNESIUM 1.5 MG/DL (1.8-2.4); POTASSIUM 3.5 MMOL/L (3.6-5.0); SODIUM 136 MMOL/L (135-145); TOTAL PROTEIN 7.1 GM/DL (6.4-8.2)
[2018-08-03 01:50] LABS: MYOGLOBIN SERUM 34.1 NG/ML (10.0-92.0)
[2018-08-03] MEDS ORDERED: MAGNESIUM 1 GM/100 ML IVPB 100 ML IV ONE (02:00)
[2018-08-03] MEDS ORDERED: SODIUM BICARB 8.4% 50 MEQ/50 ML (ABBOTT) SYR IV ONE (02:00)
[2018-08-03] MEDS ORDERED: inSUlin (REGULAR) HUMAN 1 UNIT/0.01 ML (CHARGE PER UNIT) IV ONE (02:00)
[2018-08-03 02:08] LABS: BASOPHILS % (MANUAL) 1 %; EOSINOPHILS % (MANUAL) 3 %; LYMPHOCYTES % (MANUAL) 13 %; MONOCYTES % (MANUAL) 1 %; NEUTROPHILS % (MANUAL) 82 %; RBC MORPH NORMAL
[2018-08-03 02:13] LABS: BILIRUBIN,URINE NEGATIVE (NEGATIVE); CLARITY,URINE CLEAR; COLOR,URINE YELLOW; GLUCOSE, URINE (UA) 3+ (NEGATIVE); KETONES,URINE 1+ (NEGATIVE); LEUKOCYTE ESTERASE ,URINE 2+ (NEGATIVE); NITRITE,URINE NEGATIVE (NEGATIVE); PH,URINE 6 (5-9); PROTEIN,URINE 3+ (NEGATIVE); UROBILINOGEN,URINE NORMAL (NORMAL)
[2018-08-03 02:21] LABS: WBC,URINE 0-2 /HPF
[2018-08-03 02:22] LABS: BACTERIA,URINE NEGATIVE /HPF
[2018-08-03 02:33] LABS: AMPHETAMINE SCREEN, URINE NEGATIVE (NEGATIVE); BARBITURATE SCREEN URINE NEGATIVE (NEGATIVE); BENZODIAZEPINES SCREEN URINE NEGATIVE (NEGATIVE); CANNABINOID SCREEN, URINE NEGATIVE (NEGATIVE); COCAINE SCREEN URINE NEGATIVE (NEGATIVE); METHADONE STAT NEGATIVE (NEGATIVE); METHAMPHETAMINE SCREEN URINE S NEGATIVE (NEGATIVE); OPIATE SCREEN URINE NEGATIVE (NEGATIVE); OXYCODONE STAT NEGATIVE (NEGATIVE); PROPOXYPHENE STAT NEGATIVE (NEGATIVE); TRICYCLIC ANTIDEPRESSANTS SCRE NEGATIVE (NEGATIVE)
--- NOTE | 2018-08-03 03:53 | ED General ---
General Chief Complaint: Chest Pain Stated Complaint: CHEST PAIN;INTRACTABLE NAUSEA/VOMITING; Nursing Triage Note: PT TO ROOM #5 [facility]IA [facility] CART FROM HOME. CO CHEST PRESSURE UNDER LT BREAST THAT BEGAN WHEN SHE WOKE UP THIS AM. PT REPORTS SHE WAS DC'D FROM HOSPITAL YESTERDAY AFTERNOON APPROX 1400, WENT HOME, WENT STRAIGHT TO BED, AND "WOKE UP THIS AM WITH HORRIBLE CHEST PRESSURE." UPON ARRIVAL TO ED BED SIDE GLUCOSE 307. PT REPORTS SHE DID NOT TAKE ANY SCHEDULED MEDICATION WHEN SHE GOT HOME FROM HOSPITAL, NOR CHECKED HER BS. A&0X4. REPORTS N/V THAT BEGAN 1 WK PRIOR. [facility] ACCESSED RT SIDE PORT. Nursing Sepsis Screen: No Definite Risk Source of Information: Patient (DIFFICULT HISTORIAN), EMS, Old Records History of Present Illness Date Seen by Provider: Aug 03, 2018 Time Seen by Provider: 01:06 Initial Comments PT ARRIVES VIA EMS FROM HOME C/O NAUSEA/VOMITING C/O CHEST PAIN C/O ABDOMINAL PAIN POINTS TO AREA BELOW LEFT BREAST AREA OF PAIN NO PROBLEMS URINATING AND LAST VOID WAS "A COUPLE OF HOURS AGO" NO FEVER STATES SHE HAD 1 EPISODE OF DIARRHEA YESTERDAY MORNING, BUT HAS NOT HAD ANY DIARRHEA SINCE THEN PT WAS ADMITTED TO HOSPITAL 07/31/18 AND DISMISSED YESTERDAY AFTERNOON AROUND 1600 FOR THESE SAME COMPLAINTS ( ONLY SHE WAS COMPLAINING OF RLQ PAIN AT THAT TIME) -SEE OLD CHART FOR DETAILS. HAD AN ESSENTIALLY NORMAL CT OF ABDOMEN/PELVIS ON 07/31/18, EXCEPT FOR DIVERTICULAR DISEASE WITHOUT ACUTE DIVERTICULITIS. PT IS INSULIN DEPENDENT DIABETIC AND WAS IN MILD DKA AT THE TIME PT STATES SHE GOT HOME AND WENT TO BED AND WOKE UP A SHORT TIME AGO WITH "EXCRUCIATING CHEST PAIN" AND "CAN'T KEEP ANYTHING DOWN" PT STATES SHE HAS NAUSEA MEDICATION AT HOME, BUT HAS NOT TAKEN ANY--LATER STATES "I HAVE TO TAKE BENADRYL WITH MY PHENERGAN AND I'M OUT" PT HAS NOT TAKEN ANY OF HER OTHER MEDICATIONS SINCE SHE GOT HOME TODAY, INCLUDING HER INSULIN, NOR HAS SHE CHECKED HER BLOOD GLUCOSE AT ANY TIME PT ALSO STATES SHE HAS NOT TAKEN ANY OF HER REGULAR MEDICATIONS "FOR AWHILE-- BECAUSE I'VE BEEN VOMITING FOR A WEEK" PT HAS BEEN HERE A MULTITUDE OF TIMES FOR THESE SAME COMPLAINTS--THIS IS 9TH VISIT IN 2018, WITH ADDITIONAL OUTPATIENT TESTS/PROCEDURES HAD EGD/COLONOSCOPY 06/01/18 --SMALL HIATAL HERNIA, GERD, GASTRITIS, DIVERTICULAR DISEASE PT DEMANDS PAIN MEDICATION, PHENERGAN AND BENADRYL SOON SHE ARRIVES EACH TIME, WHICH IS AGAIN WHAT SHE IS AGAIN DOING ON ARRIVAL NOW. PT HAS AN EXTENSIVE HISTORY OF NON-COMPLIANCE IN ALL ASPECTS OF CARE Allergies and Home Medications Allergies Coded Allergies: ketorolac (Verified Allergy, Severe, ANAPHYLAXIS, PT TAKES ASA AT HOME, ) ondansetron (Verified Allergy, Intermediate, RASH, 07/19/14) RASH/ HIVES exenatide (Verified Allergy, Unknown, NAUSEA, 07/19/14) NON STOP VOMITING latex (Verified Allergy, Unknown, RASH, 07/19/14) metoclopramide (Verified Allergy, Unknown, RESTLESS LEGS, 07/19/14) Home Medications Amlodipine Besylate 5 Mg Tablet, 5 MG PO DAILY, (Reported) Aspirin 81 Mg Tablet.dr, 81 MG PO DAILY, (Reported) Atorvastatin Calcium 40 Mg Tablet, 40 MG PO HS, (Reported) Gabapentin 800 Mg Tablet, 800 MG PO TID, (Reported) Insulin Detemir 100 Unit/1 Ml Insuln.pen, 40 UNITS SQ HS Prescribed by: TABATHA COVARRUBIAS on 07/31/18 1437 Insulin Lispro 100 Unit/1 Ml Insuln.pen, SQ AC, (Reported) SHE IS UNSURE OF HER SLIDING SCALE AND CAN NOT REMEMBER HOW MANY UNITS SHE TYPICALLY USES, SHE TESTS HER BLOOD SUGAR AND ENTERS HER CARBS AND HER METER TELLS HER HOW MANY UNITS OF INSULIN TO USE Linagliptin 5 Mg Tablet, 5 MG PO DAILY, (Reported) Omeprazole Magnesium 20 Mg Tablet.dr, 20 MG PO DAILY, (Reported) Oxycodone HCl 10 Mg Tablet, 10 MG PO DAILY PRN for PAIN-MODERATE TO SEVERE, ( Reported) Oxycodone HCl/Acetaminophen 1 Each Tablet, 1 TAB PO EVERY 4-6 HOURS PRN for PAIN -MODERATE, (Reported) Promethazine HCl 25 Mg Supp.rect, 25 MG RC Q6H PRN for NAUSEA/VOMITING-1ST LINE Prescribed by: TABATHA COVARRUBIAS on 08/02/18 1032 Ranitidine HCl 150 Mg Tablet, 150 MG PO BID Prescribed by: TABATHA COVARRUBIAS on 08/02/18 1032 Patient Home Medication List Home Medication List Reviewed: Yes Review of Systems Review of Systems Constitutional: malaise, weakness Respiratory: no symptoms reported Cardiovascular: see HPI, chest pain Gastrointestinal: see HPI, abdominal pain, diarrhea, loss of appetite, nausea, vomiting Genitourinary: no symptoms reported; No decreased output Musculoskeletal: other (HURTS ALL OVER) Psychiatric/Neurological: Anxiety Hematologic/Lymphatic: No Symptoms Reported Past [id number]-Vuzxwa Hx Patient Social History Alcohol Use: Rarely Uses Number of Drinks Today: Alcohol Beverage of Choice: Wine Recreational Drug Use: No Smoking Status: Former Smoker (1 PPD, REPORTEDLY QUIT 11/2017) Type Used: Cigarettes Former Smoker, Quit: Nov 23, 2017 2nd Hand Smoke Exposure: No Recent Foreign Travel: No Contact w/Someone Who Travel: No Recent Infectious Disease Expo: No Recent Hopitalizations: Yes Physical Abuse: No Sexual Abuse: No Immunizations Up To Date Tetanus Booster (TDap): Unknown PED Vaccines UTD: No Date of Pneumonia Vaccine: Dec 12, 2013 Date of Influenza Vaccine: Sep 07, 2017 Seasonal Allergies Seasonal Allergies: Yes Past Medical History Surgeries: Yes (C-SPINE X1; L-SPINE X 4; CARDIAC CATH X 3--STENT X 1--LAST CATH 03/10/16-NO INTERVENTION AT THAT TIME; PORT RIGHT CHEST; EGD/COLONOSCOPY ; RENAL/URETERAL STENT; BMT'S CHILD) Cardiac, Coronary Stent, Ear Surgery, Gallbladder, Orthopedic, Renal Respiratory: Yes (HX OF TOBACCO USE--1 PPD, REPORTEDLY QUIT 11/2017) Chronic Bronchitis, Sleep Apnea Currently Using CPAP: No Currently Using BIPAP: No Cardiac: Yes (CARDIAC STENTS; DVT'S IN ARMS) Chronic Edema/Swelling, Coronary Artery Disease, Deep Vein Thrombosis, High Cholesterol, Hypertension Neurological: Yes (NEUROPATHY IN HANDS AND FEET) Headaches /Migraines, Neuropathy 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 Disorders: No 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 POSSIBLE NARCOTIC BOWEL AND/OR DIABETIC GASTROPARESIS? ) Gastroesophageal Reflux, Diverticulosis, Hiatal Hernia, Irritable Bowel Musculoskeletal: Yes (CHRONIC NECK PAIN, PSORIATIC ARTHRITIS; CHRONIC GENERALIZED PAIN--NARCOTIC DEPENDENT ) Degenerate Disk Disease, Fibromyalgia, Chronic Back Pain Endocrine: Yes (EXTREME NON-COMPLIANCE WITH MULTIPLE EPISODES OF DKA/ UNCONTROLLED DIABETES--EASILY CONTROLLED ON ADMISSION WITH INSULIN. ) Diabetes, Insulin dep HEENT: Yes (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; POOR DENTITION) Chronic Ear Infection Loss of Vision: Denies Hearing Impairment: Hard of Hearing Cancer: No Psychosocial: Yes Anxiety Integumentary: Yes Psoriasis Blood Disorders: No Adverse Reaction/Blood Tranf: No Family Medical History Cancer of mouth 19 FATHER ( of esophogeal cancer.) Cardiovascular disease 19 MOTHER G8 BROTHER Completed stroke 19 FATHER G8 BROTHER Diabetes mellitus G8 BROTHER FH: lung cancer 19 MOTHER Hypertension 19 FATHER Kidney disease 19 FATHER Myocardial infarction 19 MOTHER G8 BROTHER Respiratory disorder No Family History of: AIDS No Pertinent Family Hx Physical Exam Vital Signs Vital Signs - First Documented 08/03/18 01:06 Temp 98.9 Pulse 88 Resp 16 B/P (MAP) 177/104 (128) Pulse Ox 96 O2 Delivery Room Air O2 Flow Rate 0 Capillary Refill : Less Than 3 Seconds Height, Weight, BMI Height: 5'0" Weight: 160lbs. 7.0oz. [id number]; 30.8 BMI Method:Stated General Appearance: Other (VERY DRAMATIC, LOUD/HARSH FORCED GAGGING AND DRY HEAVES. WAILING AND MOANING VERY LOUDLY. ) HEENT: PERRL/EOMI, Other (POOR DENTITION) Neck: Full Range of Motion, Normal Inspection; No Carotid Bruit, No JVD Respiratory: Normal Breath Sounds, No Accessory Muscle Use, No Respiratory Distress, Other (MARKEDLY EXAGGERATED PAIN RESPONSE--DIFFUSE CHEST WALL TENDERNESS. WAILS/FLINCHES EVEN BEFORE SHE IS TOUCHED) Cardiovascular: Regular Rate, Rhythm, No Edema, No JVD, No Murmur, Normal Peripheral Pulses Gastrointestinal: Normal Bowel Sounds, No Organomegaly, No Pulsatile Mass, Soft , Tenderness (MARKEDLY EXAGGERATED PAIN RESPONSE--DIFFUSE ABDOMINAL TENDERNESS. WAILS AND FLICHES EVEN BEFORE SHE IS TOUCHED) Back: Other (EXAGGERATED PAIN RESPONSE--C/O PAIN WHEREVER SHE IS TOUCHED AND WAILS/FLICHES EVEN BEFORE SHE IS TOUCHED) Extremity: Normal Capillary Refill, Normal Range of Motion, No Pedal Edema Neurologic/Psychiatric: Alert, Oriented x3, No Motor/Sensory Deficits (BUT HISTORY OF PERIPHERAL NEUROPATHY IN FEET AND HANDS) Skin: Normal Color, Warm/Dry Progress/Results/Core Measures Suspected Sepsis Recent Fever Within 48 Hours: No Infection Criteria Present: None New/Unexplained Altered Menta: No Sepsis Screen: No Definite Risk SIRS Temperature:98.9 Pulse: 88 Respiratory Rate: 16 Laboratory Tests 08/03/18 01:12: White Blood Count 18.4H Blood Pressure 177 /104 Mean: 128 Laboratory Tests 08/03/18 01:12: Creatinine 1.05, INR Comment 1.0, Platelet Count 316, Total Bilirubin 0.8 Results/Orders Lab Results Laboratory Tests Test 08/03/18 01:12 08/03/18 01:21 08/03/18 01:31 08/03/18 02:07 Range/Units White Blood Count 18.4 H 4.3-11.0 10^3/uL Red Blood Count 4.55 4.35-5.85 10^6/uL Hemoglobin 13.8 11.5-16.0 G/DL Hematocrit 39 35-52 % Mean Corpuscular Volume 86 80-99 FL Mean Corpuscular Hemoglobin 30 25-34 PG Mean Corpuscular Hemoglobin Concent 35 32-36 G/DL Red Cell Distribution Width 13.3 10.0-14.5 % Platelet Count 316 130-400 10^3/uL Mean Platelet Volume 10.1 7.4-10.4 FL Neutrophils (%) (Auto) 75 42-75 % Lymphocytes (%) (Auto) 19 12-44 % Monocytes (%) (Auto) 3 0-12 % Eosinophils (%) (Auto) 2 0-10 % Basophils (%) (Auto) 1 0-10 % Neutrophils # (Auto) 13.8 H 1.8-7.8 X 10^3 Lymphocytes # (Auto) 3.5 1.0-4.0 X 10^3 Monocytes # (Auto) 0.6 0.0-1.0 X 10^3 Eosinophils # (Auto) 0.3 0.0-0.3 10^3/uL Basophils # (Auto) 0.1 0.0-0.1 10^3/uL Neutrophils % (Manual) 82 % Lymphocytes % (Manual) 13 % Monocytes % (Manual) 1 % Eosinophils % (Manual) 3 % Basophils % (Manual) 1 % Blood Morphology Comment NORMAL Prothrombin Time 13.2 12.2-14.7 SEC INR Comment 1.0 0.8-1.4 Activated Partial Thromboplast Time 20 L 24-35 SEC Sodium Level 136 135-145 MMOL/L Potassium Level 3.5 L 3.6-5.0 MMOL/L Chloride Level 104 98-107 MMOL/L Carbon Dioxide Level 18 L 21-32 MMOL/L Anion Gap 14 5-14 MMOL/L Blood Urea Nitrogen 15 7-18 MG/DL Creatinine 1.05 0.60-1.30 MG/DL Estimat Glomerular Filtration Rate 54 BUN/Creatinine Ratio 14 Glucose Level 328 H 70-105 MG/DL Calcium Level 9.2 8.5-10.1 MG/DL Corrected Calcium 9.2 8.5-10.1 MG/DL Magnesium Level 1.5 L 1.8-2.4 MG/DL Total Bilirubin 0.8 0.1-1.0 MG/DL Aspartate Amino Transf (AST/SGOT) 14 5-34 U/L Alanine Aminotransferase (ALT/SGPT) 11 0-55 U/L Alkaline Phosphatase 68 40-136 U/L Total Creatine Kinase 34 29-168 U/L Creatine Kinase MB 1.0 <6.6 NG/ML Myoglobin 34.1 10.0-92.0 NG/ML Troponin I < 0.30 <0.30 NG/ML B-Type Natriuretic Peptide 52.5 <100.0 PG/ML Total Protein 7.1 6.4-8.2 GM/DL Albumin 4.0 3.2-4.5 GM/DL Amylase Level 36 25-125 U/L Lipase 17 8-78 U/L Serum Alcohol < 10 <10 MG/DL Glucometer 307 H 70-110 MG/DL Blood Gas Puncture Site RIGHT RADIAL Blood Gas Patient Temperature 98.9 Arterial Blood pH 7.45 H 7.37-7.43 Arterial Blood Partial Pressure CO2 25 L 35-45 MMHG Arterial Blood Partial Pressure O2 109 H 79-93 MMHG Arterial Blood HCO3 17 *L 23-27 MMOL/L Arterial Blood Total CO2 17.7 L 21.0-31.0 MMOL/L Arterial Blood Oxygen Saturation 99 94-100 % Arterial Blood Base Excess -6.3 L -2.5-2.5 MMOL/L Antonio Test YES-POS Blood Gas Ventilator Setting NO Blood Gas Inspired Oxygen ROOM AIR Urine Color YELLOW Urine Clarity CLEAR Urine pH 6 5-9 Urine Specific Alpine 1.015 L 1.016-1.022 Urine Protein 3+ H NEGATIVE Urine Glucose (UA) 3+ H NEGATIVE Urine Ketones 1+ H NEGATIVE Urine Nitrite NEGATIVE NEGATIVE Urine Bilirubin NEGATIVE NEGATIVE Urine Urobilinogen NORMAL NORMAL MG/DL Urine Leukocyte Esterase 2+ H NEGATIVE Urine RBC (Auto) 1+ H NEGATIVE Urine RBC 2-5 H /HPF Urine WBC 0-2 /HPF Urine Squamous Epithelial Cells 2-5 /HPF Urine Crystals NONE /LPF Urine Bacteria NEGATIVE /HPF Urine Casts NONE /LPF Urine Mucus SMALL H /LPF Urine Culture Indicated NO Urine Opiates Screen NEGATIVE NEGATIVE Urine Oxycodone Screen NEGATIVE NEGATIVE Urine Methadone Screen NEGATIVE NEGATIVE Urine Propoxyphene Screen NEGATIVE NEGATIVE Urine Barbiturates Screen NEGATIVE NEGATIVE Ur Tricyclic Antidepressants Screen NEGATIVE NEGATIVE Urine Phencyclidine Screen NEGATIVE NEGATIVE Urine Amphetamines Screen NEGATIVE NEGATIVE Urine Methamphetamines Screen NEGATIVE NEGATIVE Urine Benzodiazepines Screen NEGATIVE NEGATIVE Urine Cocaine Screen NEGATIVE NEGATIVE Urine Cannabinoids Screen NEGATIVE NEGATIVE My Orders Orders - PURA PIÑA DO Cbc With Automated Diff (08/03/18 01:12) Magnesium (08/03/18 01:12) Chest 1 View, Ap/Pa Only (08/03/18:12) Ekg Tracing (08/03/18:12) Cardiac Profile 1 (08/03/18 01:12) Comprehensive Metabolic Panel (08/03/18:12) Myoglobin Serum (08/03/18:12) Protime With Inr (08/03/18:12) Partial Thromboplastin Time (08/03/18:12) O2 (08/03/18 01:12) Monitor-Rhythm Ecg Trace Only (08/03/18:12) Lipid Panel (08/04/18 06:00) Saline Lock/Iv-Start (08/03/18:12) Creatine Kinase (08/03/18:12) Creatine Kinase Mb (08/03/18:12) Lipase (08/03/18:12) Amylase (08/03/18:12) BNP (08/03/18:12) Alcohol (08/03/18:12) Drug Screen Stat (Urine) (08/03/18:12) Ua Culture If Indicated (08/03/18:12) Saline Lock/Iv-Start (08/03/18:12) Ns Iv 1000 Ml (Sodium Chloride 0.9%) (9/12/18 01:12) Pantoprazole Injection (Protonix Injecti (08/03/18 01:15) Scopolamine Patch (Transderm-Scop Patch) (08/03/18 01:30) Promethazine Injection (Phenergan Injec (08/03/18 01:30) Diphenhydramine Injection (Benadryl Inje (08/03/18 01:30) Arterial Blood Gas (08/03/18 01:23) Manual Differential (08/03/18 01:12) Insulin (Regular) Human (Humulin R (Per (08/03/18 02:00) Sodium Bicarbonate 8.4% Syr (Sodium Bica (08/03/18 02:00) Magnesium 1 Gm/100 Ml Ivpb (Magnesium Day (08/03/18 02:00) Medications Given in ED Current Medications Medications Dose Ordered Sig/Jackie Route Start Time Stop Time Status Last Admin Dose Admin Diphenhydramine HCl 50 mg ONCE ONCE IVP 08/03/18 01:30 08/03/18 01:31 DC 08/03/18 01:50 50 MG Insulin Human Regular 15 unit ONCE ONCE IV 08/03/18 02:00 08/03/18 03:11 DC 08/03/18 02:38 15 UNIT Magnesium Sulfate/ Dextrose 100 ml @ 100 mls/hr ONCE ONCE IV 08/03/18 02:00 08/03/18 03:11 DC 08/03/18 02:41 100 MLS/HR Pantoprazole 40 mg ONCE ONCE IV 08/03/18 01:15 08/03/18 01:16 DC 08/03/18 01:18 40 MG Promethazine HCl 50 mg ONCE ONCE IVP 08/03/18 01:30 08/03/18 01:31 DC 08/03/18 01:50 50 MG Sodium Bicarbonate 50 meq ONCE ONCE IV 08/03/18 02:00 08/03/18 03:11 DC 08/03/18 02:38 50 MEQ Sodium Chloride 1,000 ml @ 0 mls/hr Q0M ONCE IV 08/03/18 01:12 08/03/18 01:14 DC 08/03/18 01:19 1,000 MLS/HR Vital Signs/I&O 08/03/18 08/03/18 01:06 01:06 Temp 98.9 Pulse 88 Resp 16 B/P (MAP) 177/104 (128) Pulse Ox 96 O2 Delivery Room Air Room Air O2 Flow Rate 0 Capillary Refill : Less Than 3 Seconds Blood Pressure Mean: 128 Progress Note : Progress Note PT REFUSED SCOPOLAMINE PATCH PT GIVEN PHENERGAN + BENADRYL AND NO FURTHER VOMITING DURING ER STAY WANTING NARCOTICS --ADVISED THAT DR. COVARRUBIAS HAS ADVISED AGAINST THIS AT THIS TIME. NO DETERIORATION IN PT'S CONDITION DURING ER STAY ECG Initial ECG Impression Date: Aug 03, 2018 Initial ECG Impression Time: 01:08 Initial ECG Rate: 112 Initial ECG Rhythm: S.Tach Initial ECG Comparisson: Unchanged Diagnostic Imaging Comments CXR--NO ACUTE PROCESS, PENDING RADIOLOGIST REVIEW Reviewed: Reviewed by Me Departure Communication (Admissions) 0200--SPOKE WITH DR. COVARRUBIAS, ACCEPTS PT FOR ADMIT. SHE REPORTS THAT PT HAS REPEATEDLY MISSED APPOINTMENTS WITH GI SPECIALIST, AND HAS REFUSED NEARLY EVERYTHING THAT HAS BEEN OFFERED TO HER--AND ONLY WANTS NARCOTIC PAIN MEDICATIONS AND PHENERGAN AND BENADRYL. SHE ADVISES AGAINST GIVING PT ANY PAIN MEDICATION AT THIS TIME. Impression Primary Impression: Chest pain Additional Impressions: Uncontrolled diabetes mellitus Intractable nausea and vomiting Medical non-compliance Hypomagnesemia POSSIBLE NARCOTIC BOWEL AND/OR DIABETIC GASTROPARESIS Abdominal pain Disposition: ADMITTED INPATIENT Condition: Improved Admissions Decision to Admit Reason: Admit from ER (General) Decision to Admit/Date: Aug 03, 2018 Time/Decision to Admit Time: 02:00 Departure-Patient Inst. Referrals: WINDY GRIFFIN DO (PCP) Primary Care Physician Work/School Note: Work Release Form Date Seen in the Emergency Department: Aug 03, 2018 Return to Work: Aug 04, 2018 PURA PIÑA DO Aug 03, 2018 03:53
[2018-08-03] MEDS ORDERED: PROMETHAZINE INJ 25 MG/ML (PHENERGAN) AMP IV PRN (04:00)
[2018-08-03] MEDS ORDERED: NITROGLYCERIN 0.4 MG SL TABS BTL 25'S SL PRN (04:00)
[2018-08-03] MEDS ORDERED: diphenhydrAMINE 50 MG/ML INJ (BENADRYL) IV PRN (04:00)
[2018-08-03] MEDS ORDERED: oxyCODONE ER 10 MG (OxyCONTIN CR) TAB PO PRN (04:00)
[2018-08-03] MEDS ORDERED: NS IV 1000 ML 1,000 ML ONE (04:49)
--- NOTE | 2018-08-03 05:19 | Diagnostic Imaging Report ---
INDICATION: Chest pain COMPARISON: 06/11/2018 FINDINGS: Single frontal view of the chest demonstrates normal heart size and pulmonary vascularity. The lungs are well aerated and clear. No large pleural effusion or pneumothorax is seen. The visualized osseous structures show no acute abnormalities. Right internal jugular Port-A-Cath is in stable position with tip just below the cavoatrial junction. IMPRESSION: 1. No acute cardiopulmonary process. Dictated by: Dictated on workstation # [id number]
[2018-08-03] MEDS: inSUlin ASPART (NovoLOG) 1 UNIT/0.01 ML (CHARGE PER UNIT) SC SCH ×4 (06:55→23:52)
[2018-08-03] MEDS: oxyCODONE/APAP 10/325MG (PERCOCET 10) TABLET PO PRN ×3 (08:34→22:10)
[2018-08-03] MEDS ORDERED: GABA800T2 PO (08:50)
[2018-08-03] MEDS ORDERED: PROM25SU44 RC (08:50)
[2018-08-03] MEDS ORDERED: OMEP20CA12 PO (08:50)
[2018-08-03] MEDS ORDERED: RANI150T11 PO (08:51)
[2018-08-03] MEDS ORDERED: ASPIRIN E.C. 81 MG (ECOTRIN) TAB PO SCH (09:00)
[2018-08-03] MEDS ORDERED: PANTOPRAZOLE 40 MG (PROTONIX) VIAL IV SCH ×2 (09:00→09:15)
[2018-08-03] MEDS ORDERED: FAMOTIDINE 20MG/2ML IV (PEPCID) IVP SCH (09:15)
[2018-08-03] MEDS: diphenhydrAMINE 25 MG TAB (BENADRYL) PO PRN ×2 (09:23→21:02)
[2018-08-03] MEDS: PROMETHAZINE 25 MG (PHENERGAN) SUPP PR PRN ×2 (09:23→21:01)
[2018-08-03] MEDS: POTASSIUM CHLORIDE INJ 10 MEQ in NS IV 1000 ML 1,000 ML IV SCH ×4 (10:01→23:40)
[2018-08-03] MEDS: POTASSIUM CL 10MEQ/50ML IVPB 50 ML IV SCH ×4 (10:01→12:43)
[2018-08-03] MEDS: inSUlin DETERMIR 1 UNIT/0.01 ML (LEVEMIR) CHARGE PER UNIT SQ SCH (10:01)
[2018-08-03] MEDS ORDERED: GABAPENTIN 400 MG (NEURONTIN) CAP PO PRN (11:00)
--- NOTE | 2018-08-03 11:12 | Progress Note (SOAP) ---
LATESHA ZAIDI MEDICAL STUDENT 08/03/18 1112: Subjective Subjective/Events-last exam See last H&P from recent admission. Pt presented to ED early this morning with chest pain and "reported" vomiting at home. Pt requested Phenergan/Benadryl for her pain. Today, she states her chest pain is a 10 out of 10, and non radiating. She reports no nurses will give her any pain medicine. Pt states she has been retching and dry heaving, but nothing comes up. Pt was noncompliant with her medications at home yesterday , so her blood sugars have climbed again. Review of Systems Date Seen by Provider: Aug 03, 2018 Time Seen by Provider: 10:00 Cardiovascular: Chest Pain Gastrointestinal: Nausea, Vomiting Focused Exam Respiratory: Lungs Clear, Normal Breath Sounds Cardiovascular: Regular Rate, Rhythm, No Edema, No Murmur Skin: normal color Objective Exam Last Set of Vital Signs Vital Signs Date Time Temp Pulse Resp B/P (MAP) Pulse Ox O2 Delivery O2 Flow Rate FiO2 08/03/18 08:51 99.6 91 18 178/92 (120) 96 Room Air 08/03/18 03:19 0 Capillary Refill : Less Than 3 Seconds General: Alert, Oriented X3, Cooperative Lungs: Clear to Auscultation, Normal Air Movement Heart: Regular Rate, No Murmurs Abdomen: Normal Bowel Sounds Results/Procedures Lab Laboratory Tests 08/03/18 01:12: White Blood Count 18.4H, Red Blood Count 4.55, Hemoglobin 13.8, Hematocrit 39, Mean Corpuscular Volume 86, Mean Corpuscular Hemoglobin 30, Mean Corpuscular Hemoglobin Concent 35, Red Cell Distribution Width 13.3, Platelet Count 316, Mean Platelet Volume 10.1, Neutrophils (%) (Auto) 75, Lymphocytes (%) (Auto) 19 , Monocytes (%) (Auto) 3, Eosinophils (%) (Auto) 2, Basophils (%) (Auto) 1, Neutrophils # (Auto) 13.8H, Lymphocytes # (Auto) 3.5, Monocytes # (Auto) 0.6, Eosinophils # (Auto) 0.3, Basophils # (Auto) 0.1, Neutrophils % (Manual) 82, Lymphocytes % (Manual) 13, Monocytes % (Manual) 1, Eosinophils % (Manual) 3, Basophils % (Manual) 1, Blood Morphology Comment NORMAL, Prothrombin Time 13.2, INR Comment 1.0, Activated Partial Thromboplast Time 20L, Sodium Level 136, Potassium Level 3.5L, Chloride Level 104, Carbon Dioxide Level 18L, Anion Gap 14 , Blood Urea Nitrogen 15, Creatinine 1.05, Estimat Glomerular Filtration Rate 54 , BUN/Creatinine Ratio 14, Glucose Level 328H, Calcium Level 9.2, Corrected Calcium 9.2, Magnesium Level 1.5L, Total Bilirubin 0.8, Aspartate Amino Transf ( AST/SGOT) 14, Alanine Aminotransferase (ALT/SGPT) 11, Alkaline Phosphatase 68, Total Creatine Kinase 34, Creatine Kinase MB 1.0, Myoglobin 34.1, Troponin I < 0.30, B-Type Natriuretic Peptide 52.5, Total Protein 7.1, Albumin 4.0, Amylase Level 36, Lipase 17, Serum Alcohol < 10 08/03/18 01:21: Glucometer 307H 08/03/18 01:31: Blood Gas Puncture Site RIGHT RADIAL, Blood Gas Patient Temperature 98.9, Arterial Blood pH 7.45H, Arterial Blood Partial Pressure CO2 25L, Arterial Blood Partial Pressure O2 109H, Arterial Blood HCO3 17*L, Arterial Blood Total CO2 17.7L, Arterial Blood Oxygen Saturation 99, Arterial Blood Base Excess -6.3L , Antonio Test YES-POS, Blood Gas Ventilator Setting NO, Blood Gas Inspired Oxygen ROOM AIR 08/03/18 02:07: Urine Color YELLOW, Urine Clarity CLEAR, Urine pH 6, Urine Specific [place] 1.015L, Urine Protein 3+H, Urine Glucose (UA) 3+H, Urine Ketones 1+H, Urine Nitrite NEGATIVE, Urine Bilirubin NEGATIVE, Urine Urobilinogen NORMAL, Urine Leukocyte Esterase 2+H, Urine RBC (Auto) 1+H, Urine RBC 2-5H, Urine WBC 0-2, Urine Squamous Epithelial Cells 2-5, Urine Crystals NONE, Urine Bacteria NEGATIVE, Urine Casts NONE, Urine Mucus SMALLH, Urine Culture Indicated NO, Urine Opiates Screen NEGATIVE, Urine Oxycodone Screen NEGATIVE, Urine Methadone Screen NEGATIVE, Urine Propoxyphene Screen NEGATIVE, Urine Barbiturates Screen NEGATIVE, Ur Tricyclic Antidepressants Screen NEGATIVE, Urine Phencyclidine Screen NEGATIVE, Urine Amphetamines Screen NEGATIVE, Urine Methamphetamines Screen NEGATIVE, Urine Benzodiazepines Screen NEGATIVE, Urine Cocaine Screen NEGATIVE, Urine Cannabinoids Screen NEGATIVE 08/03/18 06:13: Glucometer 365H Radiology CXR normal; no acute cardiopulmonary process. Procedures EKG was sinus tach in ED Meds Active Scripts Active Levemir Flextouch (Insulin Detemir) 100 Unit/1 Ml Insuln.pen 40 Units SQ HS 1 Days Reported Ranitidine HCl 150 Mg Tablet 150 Mg PO BID Promethazine Suppository (Promethazine HCl) 25 Mg Supp.rect 25 Mg RC Q6H PRN Omeprazole 20 Mg Capsule.dr 20 Mg PO DAILY Gabapentin 800 Mg Tablet 800 Mg PO DAILY PRN Amlodipine Besylate 5 Mg Tablet 5 Mg PO DAILY Oxycodone HCl 10 Mg Tablet 10 Mg PO DAILY PRN Gabapentin 800 Mg Tablet 1,600 Mg PO HS TAKES 2 (800MG) TABLETS Tradjenta (Linagliptin) 5 Mg Tablet 5 Mg PO DAILY Atorvastatin Calcium 40 Mg Tablet 40 Mg PO HS Aspirin EC (Aspirin) 81 Mg Tablet.dr 81 Mg PO DAILY Oxycodone-Acetaminophen 10-325 (Oxycodone HCl/Acetaminophen) 1 Each Tablet 1 Tab PO Q4H PRN MAX OF 5 TABLETS PER DAY Humalog Kwikpen (Insulin Lispro) 100 Unit/1 Ml Insuln.pen SQ AC SHE IS UNSURE OF HER SLIDING SCALE AND CAN NOT REMEMBER HOW MANY UNITS SHE TYPICALLY USES, SHE TESTS HER BLOOD SUGAR AND ENTERS HER CARBS AND HER METER TELLS HER HOW MANY UNITS OF INSULIN TO USE Assessment/Plan Assessment/Plan Admission Dx Chest pain, Intractable N/V Admission Status: Observation Reason for Inpatient Admission: Chest pain, Intractable N/V Assessment & Plan 1. Intractable Nausea Pt has refused scopalamine patch and failed meclizine and compazine. D/C IV benadryl d/t shortage. Begin rectal Phenergan and oral Benadryl. Consider IV erythromycin. Increase KCl to 20mEq and add Magnesium sulfate to normal saline. Advised pt that she could be having pain in her chest from all her retching. Pt can have oral narcotics but nothing IV for pain. She can resume her home medication of Percocet 10mg. 2. Type 2 Diabetes, Uncontrolled Pt is noncompliant with her insulin. Sugars increased to 365 today. Will give her 30 units of Levemir. Advised to eat meals at the hospital, following diabetic diet. Clinical Quality Measures AMI/AHF: ASA po Prior to arrival: Yes (GIVEN BY EMS IN TRANSIT ) DVT/VTE Risk/Contraindication: Risk Factor Score Per Nursin RFS Level Per Nursing on Admit: 4+=Very High TABATHA COVARRUBIAS MD 08/03/18 1344: Supervisory-Addendum Brief Supervisory Addendum Patient interviewed and examined along with MS3 Latesha Zaidi, agree with documentation unless otherwise noted. Difficult management as patient reports vomiting, but none is being observed, she does have dry heaving and produces saliva at times. Does not have DKA with normal pH and no increased anion gap. Chest pain appears to be musculoskeletal, troponin neg, EKG with no acute changes. She did not try any medications at home before returning to the ER. On further questioning, she has not been tested for gastroparesis in over 10 years. Last admission she refused oral erythromycin because she stated she would not take anything oral, discussed with her that we need to try all possibilities for treatment, including considering erythromycin and scopalamine patch. Discussed with pharmacy and we do not have erythromycin on formulary, but have some oral tabs and can order IV if absolutely needed. For now, use promethazine suppositories and PO benadryl (refuses other histamine blockers), IV H2 ruth ann and PPI and try scopolamine patch, will treat skin with steroid cream if needed. Discussed that given her recurrent GI issues, need to get her out of hospital in order to be able to consult with GI since we do nto have GI available here. Additionally, she has not vomited since admission, so if her blood sugar improves and she continues to have nausea without vomiting, will plan for discharge at that time. Encouraged to try small oral intake frequently. LATESHA ZAIDI MEDICAL STUDENT Aug 03, 2018 11:12 TABATHA COVARRUBIAS MD Aug 03, 2018 13:44
[2018-08-03] MEDS ORDERED: SCOPOLAMINE 1.5 MG (TRANSDERM-SCOP) PATCH TOP SCH (11:15)
[2018-08-03] MEDS ORDERED: ENOXAPARIN 40 MG/0.4 ML (LOVENOX) SYR SQ SCH (14:00)
[2018-08-03] MEDS: MAGNESIUM 1 GM/100 ML IVPB 100 ML IV SCH ×2 (14:00→15:42)
[2018-08-03] MEDS: raNItidine 50 MG/NS 50 ML IVPB IV SCH ×4 (14:57→22:07)
[2018-08-03] MEDS ORDERED: amLODIPine 5 MG (NORVASC) TAB ONE (16:00)
[2018-08-03] MEDS ORDERED: amLODIPine 5 MG (NORVASC) TAB PO NR (16:00)
[2018-08-03] MEDS ORDERED: ATORVASTATIN 40 MG (LIPITOR) TABLET PO SCH (21:00)
[2018-08-04] VITALS (7 sets, daily range): BP systolic 140–209; BP diastolic 74–107
[2018-08-04] MEDS ORDERED: meTOprolol 5 MG/5 ML (LOPRESSOR) VIAL IV ONE
[2018-08-04] MEDS ORDERED: hydrALAZINE (APRESOLINE) 25 MG TAB PO ONE (04:15)
[2018-08-04] MEDS: oxyCODONE/APAP 10/325MG (PERCOCET 10) TABLET PO PRN ×3 (04:31→13:34)
[2018-08-04] MEDS: inSUlin ASPART (NovoLOG) 1 UNIT/0.01 ML (CHARGE PER UNIT) SC SCH ×2 (05:18→12:22)
[2018-08-04] MEDS: raNItidine 50 MG/NS 50 ML IVPB IV SCH ×2 (05:19)
[2018-08-04 06:39] LABS: CHOLESTEROL 136 MG/DL (< 200); HDL CHOLESTEROL 31 MG/DL (40-60); TRIGLYCERIDES 257 MG/DL (<150); VLDL CHOLESTEROL 51 MG/DL (5-40)
[2018-08-04] MEDS ORDERED: amLODIPine 5 MG (NORVASC) TAB PO SCH (09:00)
[2018-08-04] MEDS ORDERED: ASPIRIN E.C. 81 MG (ECOTRIN) TAB PO SCH (09:00)
[2018-08-04] MEDS ORDERED: PANTOPRAZOLE 40 MG (PROTONIX) VIAL IV SCH (09:00)
[2018-08-04 09:26] LABS: BUN/CREATININE RATIO 8; CALCIUM 8.7 MG/DL (8.5-10.1); CARBON DIOXIDE 16 MMOL/L (21-32); CHLORIDE 104 MMOL/L (98-107); CREATININE SERUM 0.77 MG/DL (0.60-1.30); GFR ESTIMATED > 60; GLUCOSE 269 MG/DL (70-105); POTASSIUM 3.7 MMOL/L (3.6-5.0); SODIUM 135 MMOL/L (135-145)
[2018-08-04] MEDS: inSUlin DETERMIR 1 UNIT/0.01 ML (LEVEMIR) CHARGE PER UNIT SQ SCH (09:30)
[2018-08-04] MEDS: POTASSIUM CHLORIDE INJ 10 MEQ in NS IV 1000 ML 1,000 ML IV SCH (09:31)
[2018-08-04] MEDS ORDERED: amLODIPine 10 MG (NORVASC) TAB ONE (10:02)
[2018-08-04] MEDS ORDERED: AMLO10TA6 PO (11:06)
--- NOTE | 2018-08-04 11:09 | Discharge Instructions ---
Discharge Inst-[facility] Discharge Medications New, Converted or Re-Newed RX: Transmitted to Pharmacy New Medications: Amlodipine Besylate (Amlodipine Besylate) 10 Mg Tablet 10 MG PO DAILY, #30 TAB 0 Refills Continued Medications: Aspirin (Aspirin EC) 81 Mg Tablet.dr 81 MG PO DAILY, TAB Atorvastatin Calcium (Atorvastatin Calcium) 40 Mg Tablet 40 MG PO HS, TAB Gabapentin (Gabapentin) 800 Mg Tablet 1600 MG PO HS, TAB TAKES 2 (800MG) TABLETS Gabapentin (Gabapentin) 800 Mg Tablet 800 MG PO DAILY PRN for NERVE PAIN, TAB Insulin Detemir (Levemir Flextouch) 100 Unit/1 Ml Insuln.pen 40 UNITS SQ HS for 1 Day, EA Insulin Lispro (Humalog Kwikpen) 100 Unit/1 Ml Insuln.pen SQ AC for SLIDING SCALE, EA SHE IS UNSURE OF HER SLIDING SCALE AND CAN NOT REMEMBER HOW MANY UNITS SHE TYPICALLY USES, SHE TESTS HER BLOOD SUGAR AND ENTERS HER CARBS AND HER METER TELLS HER HOW MANY UNITS OF INSULIN TO USE Linagliptin (Tradjenta) 5 Mg Tablet 5 MG PO DAILY, TAB Omeprazole (Omeprazole) 20 Mg Capsule.dr 20 MG PO DAILY, CAP Oxycodone HCl (Oxycodone HCl) 10 Mg Tablet 10 MG PO DAILY PRN for PAIN-SEVERE, TAB Oxycodone HCl/Acetaminophen (Oxycodone-Acetaminophen 10-325) 1 Each Tablet 1 TAB PO Q4H PRN for PAIN-MODERATE, TAB MAX OF 5 TABLETS PER DAY Promethazine HCl (Promethazine Suppository) 25 Mg Supp.rect 25 MG RC Q6H PRN for NAUSEA/VOMITING-2ND LINE, SUPP.RECT Ranitidine HCl (Ranitidine HCl) 150 Mg Tablet 150 MG PO BID, TAB Discontinued Medications: Amlodipine Besylate (Amlodipine Besylate) 5 Mg Tablet 5 MG PO DAILY Patient Instructions Goal/Follow Up Appt: Follow up with Chacorta Landry APRN at [facility] on 08/12 at 10:40 am. Patient Instructions: Take 30 units daily of your Levemir until you are eating your usual amount of food and then increase to 40 units daily. Return to The Hospital For: Severe headache, inability to keep down liquids Activity & Diet Discharge Diet: Eat Small Frequent Meals, ADA Diet Activity as Tolerated: Yes Copy Copies To 1: MARY JO Acosta BETHANY N MD Aug 04, 2018 11:09 am
--- NOTE | 2018-08-04 11:46 | Discharge Summary ---
BRIAN ZAIDI MEDICAL STUDENT 08/04/18 1146: Diagnosis/Chief Complaint Date of Admission Aug 03, 2018 at 02:00 Date of Discharge Aug 04, 2018 Admission Diagnosis Admission Diagnosis Chest pain, Intractable N/V Discharge Diagnosis Intractable Nausea and Type 2 Diabetes, Uncontrolled Chief Complaint/HPI Chief Complaint/HPI Pt states she was nauseous all day yesterday, so she could not eat any meals. She notes that the scopalamine patch did nothing for her nausea and didn't end up irritating her skin. Pt has not vomited since her readmission this week. Pt has been able to eat breakfast today without nausea or vomiting. She c/o headaches last night and this morning, rating her pain as an 8 out of 10. Pt requests her Percocet to be offered every 4 hr instead of 6 hr because this is what her home prescription is. Pt notes her chest pain has resolved since admission. Discharge Summary-Simple/Stand Procedures EKG was sinus tach in ED Discharge Physical Examination Allergies: Coded Allergies: ketorolac (Verified Allergy, Severe, ANAPHYLAXIS, PT TAKES ASA AT HOME, ) ondansetron (Verified Allergy, Intermediate, RASH, 07/19/14) RASH/ HIVES exenatide (Verified Allergy, Unknown, NAUSEA, 07/19/14) NON STOP VOMITING latex (Verified Allergy, Unknown, RASH, 07/19/14) metoclopramide (Verified Allergy, Unknown, RESTLESS LEGS, 07/19/14) Vitals & I&Os Vital Sign - Last 12Hours Date Time Temp Pulse Resp B/P (MAP) Pulse Ox O2 Delivery O2 Flow Rate FiO2 08/04/18 08:00 96.7 63 12 140/100 (113) 95 Room Air 08/03/18 03:19 0 Intake and Output 08/04/18 00:00 Intake Total 100 ml Output Total 2100 ml Balance -2000 ml General Appearance: Alert, Oriented X3, Cooperative, No Acute Distress Respiratory: Clear to Auscultation, Normal Air Movement Cardiovascular: Regular Rate, No Murmurs Abdominal: Normal Bowel Sounds Extremities: No Edema Neuro: Normal Speech Hospital Course See final discharge diagnosis. Labs Laboratory Tests Test 08/03/18 01:12 08/03/18 01:21 08/03/18 01:31 08/03/18 02:07 Range/Units White Blood Count 18.4 H 4.3-11.0 10^3/uL Red Blood Count 4.55 4.35-5.85 10^6/uL Hemoglobin 13.8 11.5-16.0 G/DL Hematocrit 39 35-52 % Mean Corpuscular Volume 86 80-99 FL Mean Corpuscular Hemoglobin 30 25-34 PG Mean Corpuscular Hemoglobin Concent 35 32-36 G/DL Red Cell Distribution Width 13.3 10.0-14.5 % Platelet Count 316 130-400 10^3/uL Mean Platelet Volume 10.1 7.4-10.4 FL Neutrophils (%) (Auto) 75 42-75 % Lymphocytes (%) (Auto) 19 12-44 % Monocytes (%) (Auto) 3 0-12 % Eosinophils (%) (Auto) 2 0-10 % Basophils (%) (Auto) 1 0-10 % Neutrophils # (Auto) 13.8 H 1.8-7.8 X 10^3 Lymphocytes # (Auto) 3.5 1.0-4.0 X 10^3 Monocytes # (Auto) 0.6 0.0-1.0 X 10^3 Eosinophils # (Auto) 0.3 0.0-0.3 10^3/uL Basophils # (Auto) 0.1 0.0-0.1 10^3/uL Neutrophils % (Manual) 82 % Lymphocytes % (Manual) 13 % Monocytes % (Manual) 1 % Eosinophils % (Manual) 3 % Basophils % (Manual) 1 % Blood Morphology Comment NORMAL Prothrombin Time 13.2 12.2-14.7 SEC INR Comment 1.0 0.8-1.4 Activated Partial Thromboplast Time 20 L 24-35 SEC Sodium Level 136 135-145 MMOL/L Potassium Level 3.5 L 3.6-5.0 MMOL/L Chloride Level 104 98-107 MMOL/L Carbon Dioxide Level 18 L 21-32 MMOL/L Anion Gap 14 5-14 MMOL/L Blood Urea Nitrogen 15 7-18 MG/DL Creatinine 1.05 0.60-1.30 MG/DL Estimat Glomerular Filtration Rate 54 BUN/Creatinine Ratio 14 Glucose Level 328 H 70-105 MG/DL Calcium Level 9.2 8.5-10.1 MG/DL Corrected Calcium 9.2 8.5-10.1 MG/DL Magnesium Level 1.5 L 1.8-2.4 MG/DL Total Bilirubin 0.8 0.1-1.0 MG/DL Aspartate Amino Transf (AST/SGOT) 14 5-34 U/L Alanine Aminotransferase (ALT/SGPT) 11 0-55 U/L Alkaline Phosphatase 68 40-136 U/L Total Creatine Kinase 34 29-168 U/L Creatine Kinase MB 1.0 <6.6 NG/ML Myoglobin 34.1 10.0-92.0 NG/ML Troponin I < 0.30 <0.30 NG/ML B-Type Natriuretic Peptide 52.5 <100.0 PG/ML Total Protein 7.1 6.4-8.2 GM/DL Albumin 4.0 3.2-4.5 GM/DL Amylase Level 36 25-125 U/L Lipase 17 8-78 U/L Serum Alcohol < 10 <10 MG/DL Glucometer 307 H 70-110 MG/DL Blood Gas Puncture Site RIGHT RADIAL Blood Gas Patient Temperature 98.9 Arterial Blood pH 7.45 H 7.37-7.43 Arterial Blood Partial Pressure CO2 25 L 35-45 MMHG Arterial Blood Partial Pressure O2 109 H 79-93 MMHG Arterial Blood HCO3 17 *L 23-27 MMOL/L Arterial Blood Total CO2 17.7 L 21.0-31.0 MMOL/L Arterial Blood Oxygen Saturation 99 94-100 % Arterial Blood Base Excess -6.3 L -2.5-2.5 MMOL/L Antonio Test YES-POS Blood Gas Ventilator Setting NO Blood Gas Inspired Oxygen ROOM AIR Urine Color YELLOW Urine Clarity CLEAR Urine pH 6 5-9 Urine Specific [place] 1.015 L 1.016-1.022 Urine Protein 3+ H NEGATIVE Urine Glucose (UA) 3+ H NEGATIVE Urine Ketones 1+ H NEGATIVE Urine Nitrite NEGATIVE NEGATIVE Urine Bilirubin NEGATIVE NEGATIVE Urine Urobilinogen NORMAL NORMAL MG/DL Urine Leukocyte Esterase 2+ H NEGATIVE Urine RBC (Auto) 1+ H NEGATIVE Urine RBC 2-5 H /HPF Urine WBC 0-2 /HPF Urine Squamous Epithelial Cells 2-5 /HPF Urine Crystals NONE /LPF Urine Bacteria NEGATIVE /HPF Urine Casts NONE /LPF Urine Mucus SMALL H /LPF Urine Culture Indicated NO Urine Opiates Screen NEGATIVE NEGATIVE Urine Oxycodone Screen NEGATIVE NEGATIVE Urine Methadone Screen NEGATIVE NEGATIVE Urine Propoxyphene Screen NEGATIVE NEGATIVE Urine Barbiturates Screen NEGATIVE NEGATIVE Ur Tricyclic Antidepressants Screen NEGATIVE NEGATIVE Urine Phencyclidine Screen NEGATIVE NEGATIVE Urine Amphetamines Screen NEGATIVE NEGATIVE Urine Methamphetamines Screen NEGATIVE NEGATIVE Urine Benzodiazepines Screen NEGATIVE NEGATIVE Urine Cocaine Screen NEGATIVE NEGATIVE Urine Cannabinoids Screen NEGATIVE NEGATIVE Test 08/03/18 06:13 08/03/18 12:26 08/03/18 17:57 08/03/18 23:48 Range/Units Glucometer 365 H 136 H 139 H 170 H 70-110 MG/DL Test 08/04/18 05:06 08/04/18 05:45 08/04/18 11:45 Range/Units Glucometer 234 H 273 H 70-110 MG/DL Sodium Level 135 135-145 MMOL/L Potassium Level 3.7 3.6-5.0 MMOL/L Chloride Level 104 98-107 MMOL/L Carbon Dioxide Level 16 L 21-32 MMOL/L Anion Gap 15 H 5-14 MMOL/L Blood Urea Nitrogen 6 L 7-18 MG/DL Creatinine 0.77 0.60-1.30 MG/DL Estimat Glomerular Filtration Rate > 60 BUN/Creatinine Ratio 8 Glucose Level 269 H 70-105 MG/DL Calcium Level 8.7 8.5-10.1 MG/DL Triglycerides Level 257 H <150 MG/DL Cholesterol Level 136 < 200 MG/DL LDL Cholesterol Direct 59 1-129 MG/DL VLDL Cholesterol 51 H 5-40 MG/DL HDL Cholesterol 31 L 40-60 MG/DL Radiology Reviewed CXR normal; no acute cardiopulmonary process. Discussion & Recommendations 1. Intractable Nausea Repeat BMP before discharge today. Will write for rectal Phenergan and oral Benadryl to be taken at home. 2. Type 2 Diabetes, Uncontrolled Pt is noncompliant with her insulin. Sugars are better today at 234 after giving 30 units of Levemir yesterday. Advised to continue to eat her meals and make sure to take her insulin at home, specifically the 40units of Levemir. 3. Hypertension Explained that patient's headaches last night and this morning are likely due to her very high blood pressure. She can resume her prescribed dose of Percocet 10mg q4hr. Will increase her dose of amlodipine to 10mg qd. Discharge Instructions to patient/family Please see electronic discharge instructions given to patient. Discharge Medications Reviewed and agree with Discharge Medication list on patient's Discharge Instruction sheet Clinical Quality Measures Admission Status Admission Dx Chest Pain, N/V Admission Status: Observation Reason for Inpatient Admission: Chest pain, N/V AMI/AHF: ASA po Prior to arrival: Yes (GIVEN BY EMS IN TRANSIT ) DVT/VTE Risk/Contraindication: Risk Factor Score Per Nursin RFS Level Per Nursing on Admit: 4+=Very High Copy Copies To 1: MARY JO Acosta BETHANY N MD 08/05/18 1653: Discharge Summary-Simple/Stand Discharge Physical Examination Allergies: Coded Allergies: ketorolac (Verified Allergy, Severe, ANAPHYLAXIS, PT TAKES ASA AT HOME, ) ondansetron (Verified Allergy, Intermediate, RASH, 07/19/14) RASH/ HIVES exenatide (Verified Allergy, Unknown, NAUSEA, 07/19/14) NON STOP VOMITING latex (Verified Allergy, Unknown, RASH, 07/19/14) metoclopramide (Verified Allergy, Unknown, RESTLESS LEGS, 07/19/14) Supervisory-Addendum Brief Supervisory Addendum Patient seen and examined by me along with MSCynthia Zaidi, agree with documentation unless otherwise noted. After previous d/c patient went home and fell asleep, did not take insulin and on readmission had very high blood sugar. Suspect chest pain is from heaving, troponins negative and no EKG changes. No vomiting since readmission. Encouraged to take her levemir and to increase back to full dose as she increases her intake. BRIAN ZAIDI MEDICAL STUDENT Aug 04, 2018 11:46 TABATHA COVARRUBIAS MD Aug 05, 2018 16:53
[2018-08-04] MEDS: diphenhydrAMINE 25 MG TAB (BENADRYL) PO PRN (12:20)
[2018-08-04] MEDS: PROMETHAZINE 25 MG (PHENERGAN) SUPP PR PRN (12:29)
[2018-08-05] MEDS ORDERED: amLODIPine 10 MG (NORVASC) TAB PO SCH (09:00)
== END 2018-08-04 11:06 | disposition home or self-care (01) ==
LOC: EDUNIT# 01:06 → ER 01:07 → UNDOADMOB 02:00 → 4TH 02:00 → UNDODISOB 08-04 14:00
PROVIDERS: ADMIT Family Medicine; ATTEND Family Medicine
DX: R11.2 Nausea with vomiting, unspecified (principal); E11.65 Type 2 diabetes mellitus with hyperglycemia; R07.9 Chest pain, unspecified; Z79.4 Long term (current) use of insulin; Z91.19 Patient's noncompliance with other medical treatment and regimen; I10 Essential (primary) hypertension; E83.42 Hypomagnesemia; Z79.899 Other long term (current) drug therapy
CPT/HCPCS: 36415; 71045; 80048; 80053; 80061; 80306; 80320; 81000; 82150; 82550; 82553; 82805; 82962; 83690; 83735; 83874; 83880; 84484; 85007; 85027; 85610; 85730; 93005; 93041; 96361; 96374; 96375; G0378

== ENCOUNTER → 2018-08-15 | Outpatient (CLI) | payer MEDICARE ==
[~2018-08-15] MED LIST changes: +AMLO10TA6 PO; +BARIUM SUSPENSION 105% (LIQUID POLIBAR PLUS) 240 ML/DOSE PO ONE; +BARIUM SUSPENSION 60% (LIQUID EZ PAQUE) 240 ML DOSE PO ONE; +RANI150T11 PO
--- NOTE | 2018-08-15 12:34 | Diagnostic Imaging Report ---
Indication: Dysphagia. Findings: A double contrast esophagram was performed. Esophageal motility was assessed fluoroscopically. There is satisfactory efficacy of peristaltic wave. There are no intrinsic or extrinsic esophageal masses. Esophageal mucosa is unremarkable. Impression: Unremarkable double contrast esophagram. Dictated by: Dictated on workstation # [id number]
== END ==
LOC: RAD 10:30
PROVIDERS: ATTEND Nurse Practitioner Family
DX: R13.10 Dysphagia, unspecified (principal)
CPT/HCPCS: 74220

== ENCOUNTER 2018-08-30 10:05 | Emergency (ER) | payer MEDICARE ==
[~2018-08-30] VITALS: Ht 152.4 cm; Wt 77.6 kg
[~2018-08-30 10:05] MED LIST changes: -BARIUM SUSPENSION 105% (LIQUID POLIBAR PLUS) 240 ML/DOSE PO ONE; -BARIUM SUSPENSION 60% (LIQUID EZ PAQUE) 240 ML DOSE PO ONE
--- OUTSIDE RECORDS SUMMARY | 2018-08-30 10:16 | XMS REPORT ---
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
--- OUTSIDE RECORDS SUMMARY | 2018-08-30 10:16 | XMS REPORT ---
Author Author MARCELINO Vogel Organization [facility] Address [address] [place] [address] Care Team Providers Care Lab Courier Name Role Phone MARCELINO Vogel Unavailable PROBLEMS Type Condition ICD9-CM Code [id number] Code Onset Dates Condition Status SNOMED Code Problem Seasonal allergic rhinitis due to pollen J30.1 Active 62676906 Problem Arthritis M19.90 Active 7135215 Problem Primary insomnia F51.01 Active 6164049 Problem Dysphagia, unspecified type R13.10 Active 64962039 Problem Hyperlipidemia E78.5 Active 27676197 Problem Type 2 diabetes mellitus with hyperglycemia E11.65 Active [id number] Problem Degenerative disc disease, lumbar M51.36 Active 21125775 Problem Alterations of sensations R20.9 Active 932612405 Problem Body mass index (BMI) of 33.0-33.9 in adult Z68.33 Active 391368800 Problem Other obesity due to excess calories E66.09 Active 845315307 Problem Cervicalgia M54.2 Active 72139926 Problem Diabetic mononeuropathy associated with type 2 diabetes mellitus E11.41 Active 522713732 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 644811245 Problem Essential hypertension I10 Active 73692949 Problem Fibromyalgia M79.7 Active 13248671 Problem GERD (gastroesophageal reflux disease) K21.9 Active 986388490 Problem Tobacco abuse counseling Z71.6 Active 207703554 Problem Chronic pain syndrome G89.4 Active 636213590 Problem CAD (coronary artery disease) I25.10 Active 48539656 Problem DM neuro manif type II E11.49 Active 39974945 Problem Vitamin D deficiency E55.9 Active 89231510 Problem Tobacco abuse Z72.0 Active 10768942 Problem Dental caries K02.9 Active 02421661 ALLERGIES No Information ENCOUNTERS Encounter Location Date Diagnosis [facility] [address] [facility] [id number] [address] Jul, [place] [id number] [place] [address] 56104- 8199 Jul, Elevated serum creatinine R79.89 [place] [address] [place] [id number] [place] [address] 28216- 4495 Jul, [place] [address] [place] [id number] [place] [address] 91397- 8490 Jul, [place] [address] [place] [id number] [place] [address] 70864- 9297 Jul, [place] [id number] [place] [address] 15819- 5812 Jun, DM neuro manif type II E11.49 ; Hyperlipidemia E78.5 ; GERD (gastroesophageal reflux disease) K21.9 ; Fibromyalgia M79.7 ; 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 ; Chronic pain syndrome G89.4 ; Primary insomnia F51.01 ; Seasonal allergic rhinitis due to pollen J30.1 ; Elevated serum creatinine R79.89 and Dysphagia, unspecified type R13.10 [place] [id number] [place] [address] 49666- 2708 Apr, Type 2 diabetes mellitus with hyperglycemia E11.65 [place] [id number] [place] [address] 38863- 9502 Apr, Hyperlipidemia E78.5 ; Chronic pain syndrome G89.4 ; Cervicalgia M54.2 ; DM neuro manif type II E11.49 ; 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 ; Nausea alone R11.0 ; Essential hypertension I10 ; GERD ( gastroesophageal reflux disease) K21.9 ; CAD (coronary artery disease) I25.10 and Diabetic mononeuropathy associated with type 2 diabetes mellitus E11.41 [place] [address] [place] [id number] [place] [address] 00184- 6808 Apr, [place] [id number] [place] [address] 24250- 2801 March, Essential hypertension I10 ; DM neuro manif type II E11.49 and GERD (gastroesophageal reflux disease) K21.9 [place] [address] [place] [id number] [place] [address] 25562- 7191 March, DM neuro manif type II E11.49 and GERD (gastroesophageal reflux disease) K21.9 [place] [address] [place] [id number] [place] [address] 02080- 8332 March, [place] [address] 78209- 4255 Feb, Tobacco abuse Z72.0 [place] [address] 76867- 9463 Feb, Tobacco abuse Z72.0 [place] [address] 01735- 4350 Feb, Hypokalemia E87.6 [place] [address] 37376- 9160 Feb, Hyperlipidemia E78.5 ; Essential hypertension I10 ; DM neuro manif type II E11.49 ; Fibromyalgia M79.7 ; Acute non-recurrent frontal sinusitis J01.10 ; Other obesity due to excess calories E66.09 and Body mass index (BMI) of 33.0-33.9 in adult Z68.33 [place] [address] 78764- 0410 Jan, Dysuria R30.0 [place] [address] 09301- 4544 Jan, Dysuria R30.0 [place] [address] 84546- 4683 02 Jan, 2018 Acute cystitis with hematuria N30.01 ; DM neuro manif type II E11.49 ; 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 ; Essential hypertension I10 and Hospital discharge follow-up Z09 [place] [address] 93056- 3282 27 Dec, 2017 Chest pain, unspecified type R07.9 ; Dehydration E86.0 and Anuria R34 [place] [address] 10167- 9603 Dec, [place] [address] [place] 798753- 3325 Dec, Hyperglycemia R73.9 ; Dehydration E86.0 and Acute cystitis with hematuria N30.01 [facility] [place] [address] 13739 -6666 Dec, [facility] [place] [address] 53066 -0941 Dec, [facility] [place] [address] 09954 -7903 Dec, [facility] [place] [address] 40978 -5649 Dec, Dysuria R30.0 ; Acute cystitis with hematuria N30.01 and Weakness R53.1 [place] [address] 04971- 4298 Dec, [place] [address] 33217- 4258 Nov, [place] [address] 89320- 8391 Nov, [place] [address] 49581- 2850 Nov, Essential hypertension I10 ; DM neuro manif type II E11.49 ; [facility]DC current use of insulin Z79.4 ; Tobacco abuse Z72.0 ; Hyperlipidemia E78.5 ; Non-adherence to medical treatment Z91.19 ; GERD (gastroesophageal reflux disease) K21.9 ; Degenerative disc disease, lumbar M51.36 ; Fibromyalgia M79.7 ; Chronic pain syndrome G89.4 ; Dental caries K02.9 and Seasonal allergic rhinitis due to pollen J30.1 [place] [address] [place] [id number] [place] [address] 06785- 5147 Nov, Alterations of sensations R20.9 [facility] [address] 51170- 6284 Sep, DM neuro manif type II E11.49 ; Hyperlipidemia E78.5 ; Degenerative disc disease, lumbar M51.36 and Chronic pain syndrome G89.4 [place] [address] 94622- 4868 Sep, Arthritis M19.90 [place] [address] 71519- 5586 Sep, Type 2 diabetes mellitus without complication E11.9 ; GERD ( gastroesophageal reflux disease) K21.9 ; Arthritis M19.90 and Chronic pain syndrome G89.4 [place] [address] [place] [id number] [place] [address] 61544- 9682 Sep, [place] [address] 73003- 3426 Aug, [facility] [address] [place] [id number] [place] [address] 31090- 5959 Aug, Type 2 diabetes mellitus without complication E11.9 [place] [address] [place] [id number] [place] [address] 58851- 6201 Aug, [place] [address] [place] [id number] [place] [address] 11002- 8265 Aug, [facility] [address] [place] [id number] [place] [address] 88645- 9513 Aug, [facility] [address] [place] [id number] [place] [address] 25569- 4331 Jul, [facility] [address] [place] [id number] [place] [address] 07367 -9099 22 Jul, 2017 Acute non-recurrent frontal sinusitis J01.10 [place] [address] [place] [id number] [place] [address] 88629- 9363 Jul, CAD (coronary artery disease) I25.10 and GERD ( gastroesophageal reflux disease) K21.9 [place] [address] [place] [id number] [place] [address] 31585- 1998 14 Jul, 2017 Localized swelling, mass and lump, neck R22.1 [place] [address] [place] [id number] [place] [address] 73850- 2753 06 Jul, 2017 [place] [address] 58027- 1351 15 Jun, 2017 Type 2 diabetes mellitus without complication E11.9 ; Primary insomnia F51.01 ; Alterations of sensations R20.9 ; Hyperlipidemia E78.5 ; GERD (gastroesophageal reflux disease) K21.9 ; Essential hypertension I10 ; [facility]DC current use of insulin Z79.4 ; Tobacco abuse Z72.0 ; Tobacco abuse counseling Z71.6 and CAD (coronary artery disease) I25.10 [place] [address] 32647- 7140 May, [place] [address] [place] [id number] [place] [address] 75044- 5183 May, Type 2 diabetes mellitus without complication E11.9 [place] [address] [place] [id number] [place] [address] 14675- 5389 May, [place] [address] [place] [id number] [place] [address] 52318- 5790 March, [place] [address] [place] [id number] [place] [address] 90108- 0720 Feb, [facility] [address] [place] [id number] [place] [address] 38451 -2549 Jan, Acute suppurative otitis media of left ear with spontaneous rupture of tympanic membrane, recurrence not specified H66.012 [facility] [address] [place] [id number] [place] [address] 31384- 6838 17 Dec, 2016 Type 2 diabetes mellitus without complication E11.9 ; Lumbago M54.5 ; Cervicalgia M54.2 ; Hyperlipidemia E78.5 ; GERD ( gastroesophageal reflux disease) K21.9 ; Chronic pain syndrome G89.4 ; Dysuria R30.0 and Essential hypertension I10 [place] [address] 89192- 8898 Oct, [place] [address] 59129- 1261 30 Sep, 2016 Diabetic mononeuropathy associated with type 2 diabetes mellitus E11.41 and Coughing R05 [place] [address] 68566- 2634 Sep, Diabetic mononeuropathy associated with type 2 diabetes mellitus E11.41 and Coughing R05 [place] [address] 82052- 9304 18 Sep, 2016 Onychomycosis B35.1 ; Neuritis M79.2 and Type 2 diabetes mellitus without complication E11.9 [place] [address] 74860- 4685 14 Sep, 2016 [place] [address] 17806- 4250 03 Sep, 2016 Cough R05 ; Seasonal allergic rhinitis due to pollen J30.1 and Acute upper respiratory infection, unspecified J06.9 [place] [address] [place] [id number] [place] [address] 60780- 1563 02 Sep, 2016 [place] [address] 08904- 6256 Aug, [place] [address] [place] [id number] [place] [address] 27684- 0072 13 Jul, 2016 Type 2 diabetes mellitus without complication E11.9 ; Chronic pain G89.29 ; Essential hypertension I10 and Acute non-recurrent maxillary sinusitis J01.00 [place] [address] [place] [id number] [place] [address] 74550- 7130 02 Jul, 2016 Chronic pain syndrome G89.4 ; Lumbago M54.5 and Cervicalgia M54.2 [place] [address] [address]- 5846 Jul, [place] [address] [place] [id number] [place] [address] 62972- 7209 Jul, [place] [address] [place] [id number] [place] [address] 84960- 6002 Jun, Onychomycosis B35.1 ; Onychocryptosis L60.0 and DM neuro manif type II E11.49 [place] [id number] [place] [address] 60885- 6864 Jun, Type 2 diabetes mellitus without complication E11.9 ; Pain in unspecified hip M25.559 ; Other chronic pain G89.29 ; Lumbago M54.5 ; Chronic pain G89.29 ; Insomnia, unspecified G47.00 ; GERD (gastroesophageal reflux disease) K21.9 and Dental caries K02.9 [place] [address] [place] [id number] [place] [address] 48977- 4048 Jun, Type 2 diabetes mellitus without complication E11.9 ; Lumbago M54.5 ; Chronic pain G89.29 ; Insomnia, unspecified G47.00 ; GERD ( gastroesophageal reflux disease) K21.9 ; Dental caries K02.9 ; Pain in unspecified hip M25.559 and Other chronic pain G89.29 [place] [address] [place] [address] 81537- 7934 May, [place] [address] [place] [id number] [place] [address] 09971- 8061 May, Type 2 diabetes mellitus without complication E11.9 ; Essential hypertension I10 ; Chronic pain syndrome G89.4 ; Other seasonal allergic rhinitis J30.2 and Insomnia, unspecified G47.00 [place] [address] [place] [address] 29779- 8085 Apr, [place] [address] [place] [id number] [place] [address] 00566- 7547 Apr, Hypertension I10 and Chronic pain G89.29 [place] [address] [place] [id number] [place] [address] 67248- 8406 March, Onychomycosis B35.1 ; Onychocryptosis L60.0 and Type 2 diabetes mellitus without complication E11.9 [place] [address] 50682- 5436 March, Type 2 diabetes mellitus without complication E11.9 ; Essential hypertension I10 ; Alterations of sensations R20.9 ; Chronic pain syndrome G89.4 ; Tobacco abuse Z72.0 and Tobacco abuse counseling Z71.[address] 53147- 0946 Feb, Cough R05 ; Type 2 diabetes mellitus without complication E11.9 ; Tobacco abuse counseling Z71.6 and Chronic pain G89.[address] 41105- 9178 Feb, [place] [address] 03899- 8246 Feb, Type 2 diabetes mellitus without complication E11.9 ; Lumbago M54.5 ; Cervicalgia M54.2 ; Degenerative disc disease, lumbar M51.36 and Numbness and tingling of both legs 782.0 [facility] [address] [id number] Jan, Dental caries K02.9 and Encounter for dental examination Z01.20 [place] [id number] [place] [address] 19111- 7344 Jan, Type 2 diabetes mellitus without complication E11.[address] 42664- 8029 Jan, Type 2 diabetes mellitus without complication E11.9 ; Numbness and tingling of both legs 782.0 ; Fibromyalgia M79.7 ; Hyperlipidemia E78.5 ; Lumbago M54.5 ; Cervicalgia M54.2 ; Hypertension I10 ; CAD (coronary artery disease) I25.10 ; Tobacco abuse Z72.0 ; Tobacco abuse counseling Z71.6 and GERD (gastroesophageal reflux disease) K21.9 [place] [address] 46869- 7748 Jan, [facility] [address] [place] [id number] [place] [address] 18974- 7558 Dec, [facility] [address] [id number] Dec, Dental examination Z01.20 and Dental caries K02.[address] 18159- 0895 Dec, Edema R60.9 ; Type 2 diabetes mellitus without complication E11.9 ; Hypertension I10 and Mouth pain K13.[address] 99217- 4426 Dec, Degenerative disc disease, lumbar M51.[address] 48888- 4617 Dec, [address] 60391- 1817 Nov, Insomnia, unspecified G47.[address] 76650- 0855 Nov, Type 2 diabetes mellitus without complication E11.9 ; Lumbago M54.5 ; Degenerative disc disease, lumbar M51.36 ; Fibromyalgia M79.7 ; Coronary artery disease I25.10 ; Hyperlipidemia E78.5 ; Controlled substance agreement signed Z79.899 ; Dysuria R30.0 ; Insomnia, unspecified G47.00 ; GERD ( gastroesophageal reflux disease) K21.9 ; Hypertension 401.9 and FDC current use of insulin Z79.4 [place] [id number] [place] [address] 08368- 4239 Nov, [address] 85055- 2789 Oct, Degenerative disc disease, lumbar M51.36 ; Cervicalgia M54.2 ; Insomnia, unspecified G47.00 ; Decreased GFR R94.4 and GERD ( gastroesophageal reflux disease) K21.9 [facility] [address] 52242- 0763 Oct, Lumbago M54.5 [place] [address] 88108- 5640 Oct, Low back pain M54.5 [place] [address] 14118- 8309 Oct, [place] [address] 88561- 0563 Oct, Disorientation R41.0 [place] [address] 06825- 3554 Oct, Type 2 diabetes mellitus without complication E11.9 ; Disorientation R41.0 and Chest pain R07.9 [place] [address] 10181- 9568 Oct, [place] [address] 50521- 9006 Sep, Low back pain M54.5 [place] [address] 87582- 4710 Sep, Insomnia, unspecified G47.00 [place] [address] 68661- 2169 Aug, Degenerative disc disease, lumbar M51.36 ; Type 2 diabetes mellitus without complication E11.9 and Encounter for immunization Z23 [place] [address] 62310- 1766 Aug, [place] [address] 63350- 1458 Aug, [place] [address] [place] [address]- 3155 Aug, [facility] [address] [place] [id number] [place] [address] 89282- 3552 Jul, [facility] [address] [place] [id number] [place] [address] 29201- 7994 Jun, [facility] [address] [place] [id number] [place] [address] 22392- 6079 Jun, Chest pain 786.50 and Lumbago 724.2 [facility] [address] [place] [id number] [place] [address] 58985- 6311 Jun, [facility] [address] 39145- 8483 Jun, [facility] [address] [id number] Jun, Dental examination V72.2 [facility] [address] [place] [id number] [place] [address] 33165- 8598 Jun, [facility] [address] [place] [id number] [place] [address] 52985- 0383 May, Left shoulder pain 719.41 and Numbness and tingling of both legs 782.0 [facility] [address] [place] [id number] [place] [address] 75834- 2342 May, Cough 786.2 ; Numbness and tingling of both legs 782.0 and Acute rhinitis 460 [facility] [address] [place] [id number] [place] [address] 45510- 3122 May, [facility] [address] [place] [id number] [place] [address] 74142- 6868 Apr, [facility] [address] [place] [id number] [place] [address] 19052- 8012 Apr, Bilateral lower extremity edema 782.3 ; Lumbago 724.2 and Insomnia 780.52 [facility] [address] [place] [id number] [place] [address] 76049- 6699 Apr, [facility] [address] [facility] [id number], [place] [address]- 9783 Apr, [facility] [address] [id number] [address]- 6675 March, Seborrheic keratosis 702.19 and Skin lesion of face 709.9 [facility] [address] [facility] [id number], [place]- 0081 March, [facility] [address] [facility] [id number], [place] [address]- 1841 March, [facility] [address] [facility] [id number] [place] [address]- 4749 March, [facility] [address] [place] [id number]- 2764 March, [facility] [address] [place] [id number], [place] [address]- 0516 Feb, [facility] [address] [facility] [id number], [place] [address]- 3752 Feb, [facility] [address] [id number], [place] [address]- 4769 Jan, [facility] [address] [facility] [id number], [place] [address]- 7246 Jan, [facility] [address] [facility] [id number], [place] [address]- 0369 Jan, [facility] [address] [facility] [id number], [place]- 1202 Jan, [facility] [address] [facility] [id number], [place]- 0609 Jan, [facility] [address] [facility] [id number], [place] [address]- 0890 Jan, [facility] [address] [facility] [id number], [place] [address]- 3505 13 Jan, 2015 [facility] [place] [facility] [address] [id number] [place] [address]- 2095 13 Jan, 2015 [facility] [place] [facility] [address] [id number] [place] [address]- 0992 13 Jan, 2015 [facility] [place] [facility] [address] [id number] [place] [address]- 6852 Jan, [facility] [place] [facility] [address] [id number] [place] [address]- 6278 10 Jan, 2015 [facility] [place] [facility] [address] [id number] [place] [address]- 4099 Dec, [facility] [place] [facility] [address] [id number] [place] [address]- 7483 Dec, [facility] [place] [facility] [address] [id number] [place] [address]- 8914 Dec, [facility] [place] [facility] [address] [id number] [place] [address]- 1000 Dec, [facility] [place] [facility] [address] [id number] [place] [address]- 7273 Dec, [facility] [place] [facility] [address] [id number] [place] [address]- 9602 12 Dec, 2014 [facility] [place] [facility] [address] [id number] [place] [address]- 5139 15 Nov, 2014 [facility] [place] [facility] [address] [id number] [place] [address]- 7798 15 Nov, 2014 [facility] [place] [facility] [address] [id number] [place] [address]- 9691 14 Nov, 2014 [facility] [place] [facility] [address] [id number] [place] [address]- 1833 14 Nov, 2014 [facility] [place] [facility] [address] [id number], [place] [address]- 2058 13 Nov, 2014 [facility] [place] [facility] [address] [id number] [place] [address]- 8581 Nov, [facility] [place] [facility] [address] [id number] [place] [address]- 7648 Nov, [facility] [place] [facility] [address] [id number] [place] [address]- 8642 Nov, [facility] [place] [facility] [address] [id number] [place] [address]- 6473 Nov, [facility] [place] [facility] [address] [id number] [place] [address]- 6617 Nov, [facility] [place] [facility] [address] [id number] [place] [address]- 4422 Nov, [facility] [place] [facility] [address] [id number] [place] [address]- 5931 Oct, [facility] [place] [facility] [address] [id number] [place] [address]- 5510 Oct, [facility] [place] [facility] [address] [id number] [place] [address] Oct, [facility] [place] [facility] [address] [id number] [place] [address] Oct, [facility] [place] [facility] [address] [id number] [place] [address] Oct, [facility] [place] [facility] [address] [id number] [place] [address] Oct, [facility] [place] [facility] [address] [id number] [place] [address] Oct, [facility] [place] [facility] [address] [id number] [place] [address] Oct, [facility] [place] [facility] [address] [id number] [place] [address] Oct, [facility] [place] [facility] [address] [id number], [place] [address] Oct, [facility] [place] [facility] [address] [id number] [place] [address] Sep, [facility] [place] [facility] [address] [id number] [place] [address] Sep, [facility] [place] [facility] [address] [id number] [place] [address] Sep, [facility] [place] [facility] [address] [id number], [place] [address] Sep, [facility] [place] [facility] [address] [id number] [place] [address] Sep, [facility] [place] [facility] [address] [id number], [place] [address] Sep, [facility] [place] [facility] [address] [id number], [place] [address] Sep, [facility] [place] [facility] [address] [id number], [place] [address] Sep, [facility] [place] [facility] [address] [id number], [place] [address] Sep, [facility] [place] [facility] [address] [id number], [place] [address] Sep, [facility] [place] [facility] [address] [id number], [place] [address] Sep, [facility] [place] [facility] [address] [id number], [place] [address] Sep, [facility] [place] [facility] [address] [id number], [place] [address] Sep, [facility] [place] [facility] [address] [id number], [place] [address] Aug, [facility] [place] [facility] [address] [id number], [place] [address] Aug, [facility] [place] [facility] [address] [id number] [place] [address] Aug, 2013 [facility] [place] [facility] [address] [id number] [place] [address] Aug, 2013 [facility] [place] [facility] [address] [id number] [place] [address] Aug, [facility] [place] [facility] [address] [id number] [place] [address] Aug, [facility] [place] [facility] [address] [id number] [place] [address] Aug, [facility] [place] [facility] [address] [id number] [place] [address] Aug, [facility] [place] [facility] [address] [id number] [place] [address] Aug, [facility] [place] [facility] [address] [id number] [place] [address] Aug, [facility] [place] [facility] [address] [id number] [place] [address] Aug, [facility] [place] [facility] [address] [id number] [place] [address] Aug, [facility] [place] [facility] [address] [id number] [place] [address] Aug, [facility] [place] [facility] [address] [id number] [place] [address] Aug, 2013 [facility] [place] [facility] [address] [id number] [place] [address] Aug, 2013 [facility] [place] [facility] [address] [id number] [place] [address] Aug, 2013 [facility] [place] [facility] [address] [id number] [place] [address] Aug, 2013 [facility] [place] [facility] [address] [id number] [place] [address] Aug, [facility] [address] [id number] [address] Jul, [facility] [address] [facility] [id number], [place] [address] Jul, [facility] [address] [facility] [id number], [place] [address] Jul, [facility] [address] [facility] [id number], [place] [address] Jul, [facility] [address] [facility] [id number], [place] [address] Jul, [facility] [address] [facility] [id number], [place] [address] Jul, [facility] [id number], [place] [address] Jul, [facility] [id number], [place] [address] Jul, [facility] [id number], [place] [address] Jul, [facility] [id number], [place] [address] Jul, [facility] [address] [id number], [place] [address] Jul, [facility] [address] [id number], [place] [address] Jul, [facility] [address] [id number], [place] [address] Jul, [facility] [id number], [place] [address] Jul, IMMUNIZATIONS No Known Immunizations SOCIAL HISTORY [...] History Placed port during hospital stay 11/2016 Surgical History colonoscopy 05/2018 Surgical History EGD 05/2018 Hospitalization History Frequent admission for hyperglycemia/DKA Hospitalization History hyperglycemia 11/27/15 Hospitalization History hyperglycemia, cough 11/2016 Hospitalization History Chest Pain 12/[address] [facility]- Influenza illness, hyperglycemia 2017 Hospitalization History [facility]- High BS (Pt left AMA) 01/05/2018 Hospitalization History [facility]- DKA and UTI. Discharged 01/14/2018 Hospitalization History [facility] [place]- Nausea and Vomiting, cannot urinate 01/18/2018
--- OUTSIDE RECORDS SUMMARY | 2018-08-30 10:17 | XMS REPORT ---
Author Author SATISH TABATHA [facility] Address [address] [place] [address] Care Team Providers Care Post Closer Name Role Phone SATISHMILENA REYNOLDSHANY Unavailable PROBLEMS Type Condition ICD9-CM Code NTG44-UL Code Onset Dates Condition Status SNOMED Code Problem Seasonal allergic rhinitis due to pollen J30.1 Active 34397684 Problem Arthritis M19.90 Active 3616675 Problem Primary insomnia F51.01 Active 8992216 Problem Dysphagia, unspecified type R13.10 Active 01944946 Problem Hyperlipidemia E78.5 Active 72635043 Problem Type 2 diabetes mellitus with hyperglycemia E11.65 Active 111716282082905 Problem Degenerative disc disease, lumbar M51.36 Active 04774884 Problem Alterations of sensations R20.9 Active 020241329 Problem Body mass index (BMI) of 33.0-33.9 in adult Z68.33 Active 462930578 Problem Other obesity due to excess calories E66.09 Active 866297005 Problem Cervicalgia M54.2 Active 62563799 Problem Diabetic mononeuropathy associated with type 2 diabetes mellitus E11.41 Active 195590142 Problem 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 Active 254838812 Problem Essential hypertension I10 Active 78494041 Problem Fibromyalgia M79.7 Active 14437672 Problem GERD (gastroesophageal reflux disease) K21.9 Active 919824698 Problem Tobacco abuse counseling Z71.6 Active 624472862 Problem Chronic pain syndrome G89.4 Active 622609794 Problem CAD (coronary artery disease) I25.10 Active 87692497 Problem DM neuro manif type II E11.49 Active 19790100 Problem Vitamin D deficiency E55.9 Active 38660492 Problem Tobacco abuse Z72.0 Active 64230548 Problem Dental caries K02.9 Active 43792544 ALLERGIES No Information ENCOUNTERS Encounter Location Date Diagnosis [facility] [address] [facility] [id number] [address] Jul, [place] [address], [place] [address] Jul, Elevated serum creatinine R79.89 [place] [address] [place] [address] 97644- 0553 Jul, [place] [address] [place] [id number] [place] [address] 27750- 8858 Jul, [place] [address] [place] [id number] [place] [address] 35417- 2400 Jul, [place] [address] [place] [id number] [place] [address] 74809- 6045 Jun, DM neuro manif type II E11.49 ; Hyperlipidemia E78.5 ; GERD (gastroesophageal reflux disease) K21.9 ; Fibromyalgia M79.7 ; 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 ; Chronic pain syndrome G89.4 ; Primary insomnia F51.01 ; Seasonal allergic rhinitis due to pollen J30.1 ; Elevated serum creatinine R79.89 and Dysphagia, unspecified type R13.10 [place] [address] [place] [address] 04154- 3069 Apr, Type 2 diabetes mellitus with hyperglycemia E11.65 [place] [address] [place] [address] 21274- 7287 Apr, Hyperlipidemia E78.5 ; Chronic pain syndrome G89.4 ; Cervicalgia M54.2 ; DM neuro manif type II E11.49 ; 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 ; Nausea alone R11.0 ; Essential hypertension I10 ; GERD ( gastroesophageal reflux disease) K21.9 ; CAD (coronary artery disease) I25.10 and Diabetic mononeuropathy associated with type 2 diabetes mellitus E11.41 [place] [address] [place] [address] 81900- 1305 Apr, [place] [id number] [place] [address] 28574- 3254 March, Essential hypertension I10 ; DM neuro manif type II E11.49 and GERD (gastroesophageal reflux disease) K21.9 [place] [address] [place] [id number] [place] [address] 32252- 8102 March, DM neuro manif type II E11.49 and GERD (gastroesophageal reflux disease) K21.9 [facility] [address] [place] [id number] [place] [address] 58313- 2834 March, [place] [address] 75341- 3933 Feb, Tobacco abuse Z72.0 [place] [address] 26062- 9296 Feb, Tobacco abuse Z72.0 [place] [address] 78111- 9146 Feb, Hypokalemia E87.6 [place] [address] 87347- 5072 Feb, Hyperlipidemia E78.5 ; Essential hypertension I10 ; DM neuro manif type II E11.49 ; Fibromyalgia M79.7 ; Acute non-recurrent frontal sinusitis J01.10 ; Other obesity due to excess calories E66.09 and Body mass index (BMI) of 33.0-33.9 in adult Z68.33 [place] [address] [place] [id number] [place] [address] 74313- 7569 Jan, Dysuria R30.0 [place] [address] 66193- 4952 Jan, Dysuria R30.0 [place] [address] [place] [id number] [place] [address] 83876- 5240 Jan, Acute cystitis with hematuria N30.01 ; DM neuro manif type II E11.49 ; 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 ; Essential hypertension I10 and Hospital discharge follow-up Z09 [place] [address] [place] [id number] [place] [address] 91795- 6659 27 Dec, 2017 Chest pain, unspecified type R07.9 ; Dehydration E86.0 and Anuria R34 [place] [address] [place] [id number] [place] [address] 86547- 1541 Dec, [place] [id number]- 3982 Dec, Hyperglycemia R73.9 ; Dehydration E86.0 and Acute cystitis with hematuria N30.01 [facility] [place] [address] 27899 -3761 Dec, [facility] [place] [address] 33133 -3388 Dec, [facility] [place] [address] 04941 -4040 Dec, [facility] [place] [address] 11052 -8308 Dec, Dysuria R30.0 ; Acute cystitis with hematuria N30.01 and Weakness R53.1 [place] [address] 67118- 8994 Dec, [place] [address] 43311- 8965 Nov, [place] [address] 59273- 5731 Nov, [address] 46848- 6738 Nov, Essential hypertension I10 ; DM neuro manif type II E11.49 ; [facility] current use of insulin Z79.4 ; Tobacco abuse Z72.0 ; Hyperlipidemia E78.5 ; Non-adherence to medical treatment Z91.19 ; GERD (gastroesophageal reflux disease) K21.9 ; Degenerative disc disease, lumbar M51.36 ; Fibromyalgia M79.7 ; Chronic pain syndrome G89.4 ; Dental caries K02.9 and Seasonal allergic rhinitis due to pollen J30.1 [place] [address]- 5089 Nov, Alterations of sensations R20.9 [facility] [address] 95137- 6131 Sep, DM neuro manif type II E11.49 ; Hyperlipidemia E78.5 ; Degenerative disc disease, lumbar M51.36 and Chronic pain syndrome G89.4 [facility] [address] 26704- 6868 Sep, Arthritis M19.90 [place] [address] 31626- 4799 Sep, Type 2 diabetes mellitus without complication E11.9 ; GERD ( gastroesophageal reflux disease) K21.9 ; Arthritis M19.90 and Chronic pain syndrome G89.4 [place] [address] 90821- 3127 Sep, [facility] [address] 50981- 3978 Aug, [facility] [address] [place] [id number] [place] [address] 60673- 6587 Aug, Type 2 diabetes mellitus without complication E11.9 [facility] [address] [place] [id number] [place] [address] 98984- 9214 Aug, [facility] [address] [place] [id number] [place] [address] 69921- 2168 Aug, [facility] [address] [place] [id number] [place] [address] 55411- 9778 Aug, [facility] [address] [place] [id number] [place] [address] 39796- 4349 Jul, [facility] [address] [place] [id number] [place] [address] 09844 -6553 22 Jul, 2017 Acute non-recurrent frontal sinusitis J01.10 [facility] [address] [place] [id number] [place] [address] 18996- 3257 20 Jul, 2017 CAD (coronary artery disease) I25.10 and GERD ( gastroesophageal reflux disease) K21.9 [place] [address] [place] [id number] [place] [address] 10860- 2946 14 Jul, 2017 Localized swelling, mass and lump, neck R22.1 [place] [address] [place] [id number] [place] [address] 84560- 9743 06 Jul, 2017 [place] [address] 64781- 3110 Jun, Type 2 diabetes mellitus without complication E11.9 ; Primary insomnia F51.01 ; Alterations of sensations R20.9 ; Hyperlipidemia E78.5 ; GERD (gastroesophageal reflux disease) K21.9 ; Essential hypertension I10 ; [facility] current use of insulin Z79.4 ; Tobacco abuse Z72.0 ; Tobacco abuse counseling Z71.6 and CAD (coronary artery disease) I25.10 [place] [address] 37627- 0757 May, [place] [address] [place] [id number] [place] [address] 49808- 6562 May, Type 2 diabetes mellitus without complication E11.9 [place] [address] [place] [id number] [place] [address] 87781- 2239 May, [place] [address] [place] [id number] [place] [address] 98530- 8790 March, [place] [address] [place] [id number] [place] [address] 45036- 9136 Feb, [facility] IN [facility] [address] [place] [id number] [place] [address] 77269 -7657 Jan, Acute suppurative otitis media of left ear with spontaneous rupture of tympanic membrane, recurrence not specified H66.012 [place] [address] [place] [id number] [place] [address] 06816- 0626 17 Dec, 2016 Type 2 diabetes mellitus without complication E11.9 ; Lumbago M54.5 ; Cervicalgia M54.2 ; Hyperlipidemia E78.5 ; GERD ( gastroesophageal reflux disease) K21.9 ; Chronic pain syndrome G89.4 ; Dysuria R30.0 and Essential hypertension I10 [place] [address] 99191- 1268 Oct, [place] [address] 62524- 7799 30 Sep, 2016 Diabetic mononeuropathy associated with type 2 diabetes mellitus E11.41 and Coughing R05 [place] [address] 76332- 0715 28 Sep, 2016 Diabetic mononeuropathy associated with type 2 diabetes mellitus E11.41 and Coughing R05 [place] [address] 46706- 1850 18 Sep, 2016 Onychomycosis B35.1 ; Neuritis M79.2 and Type 2 diabetes mellitus without complication E11.9 [place] [address] 54803- 0716 14 Sep, 2016 [place] [address] 56278- 2285 03 Sep, 2016 Cough R05 ; Seasonal allergic rhinitis due to pollen J30.1 and Acute upper respiratory infection, unspecified J06.9 [place] [address] 90446- 9827 02 Sep, 2016 [place] [address] 68611- 5133 Aug, [place] [address] 94768- 3021 13 Jul, 2016 Type 2 diabetes mellitus without complication E11.9 ; Chronic pain G89.29 ; Essential hypertension I10 and Acute non-recurrent maxillary sinusitis J01.00 [place] [address] 08173- 7058 02 Jul, 2016 Chronic pain syndrome G89.4 ; Lumbago M54.5 and Cervicalgia M54.2 [place] [address] [place] [id number] [place] [address] 16291- 6908 Jul, [place] [address] [place] [id number] [place] [address] 77065- 6198 Jul, [place] [address] [place] [id number] [place] [address] 95536- 1882 Jun, Onychomycosis B35.1 ; Onychocryptosis L60.0 and DM neuro manif type II E11.49 [place] [id number] [place] [address] 11528- 0696 Jun, Type 2 diabetes mellitus without complication E11.9 ; Pain in unspecified hip M25.559 ; Other chronic pain G89.29 ; Lumbago M54.5 ; Chronic pain G89.29 ; Insomnia, unspecified G47.00 ; GERD (gastroesophageal reflux disease) K21.9 and Dental caries K02.9 [place] [address] [place] [id number] [place] [address] 95181- 8397 Jun, Type 2 diabetes mellitus without complication E11.9 ; Lumbago M54.5 ; Chronic pain G89.29 ; Insomnia, unspecified G47.00 ; GERD ( gastroesophageal reflux disease) K21.9 ; Dental caries K02.9 ; Pain in unspecified hip M25.559 and Other chronic pain G89.29 [place] [address] [place] [id number] [place] [address] 93707- 5170 May, [place] [address] [place] [id number] [place] [address] 49731- 8259 May, Type 2 diabetes mellitus without complication E11.9 ; Essential hypertension I10 ; Chronic pain syndrome G89.4 ; Other seasonal allergic rhinitis J30.2 and Insomnia, unspecified G47.00 [place] [address] [place] [id number] [place] [address] 76048- 0556 Apr, [place] [address] [place] [id number] [place] [address] 58790- 4327 Apr, Hypertension I10 and Chronic pain G89.29 [place] [address] [place] [id number] [place] [address] 02905- 3005 March, Onychomycosis B35.1 ; Onychocryptosis L60.0 and Type 2 diabetes mellitus without complication E11.9 [place] [address] [place] [id number] [place] [address] 28084- 4757 March, Type 2 diabetes mellitus without complication E11.9 ; Essential hypertension I10 ; Alterations of sensations R20.9 ; Chronic pain syndrome G89.4 ; Tobacco abuse Z72.0 and Tobacco abuse counseling Z71.[address] 53759- 1224 Feb, Cough R05 ; Type 2 diabetes mellitus without complication E11.9 ; Tobacco abuse counseling Z71.6 and Chronic pain G89.[address] 15519- 9041 Feb, [place] [address] 24379- 6507 Feb, Type 2 diabetes mellitus without complication E11.9 ; Lumbago M54.5 ; Cervicalgia M54.2 ; Degenerative disc disease, lumbar M51.36 and Numbness and tingling of both legs 782.0 [facility] [address] [place] [id number] [place] [address] [id number] Jan, Dental caries K02.9 and Encounter for dental examination Z01.20 [place] [id number] [place] [address] 93542- 5866 Jan, Type 2 diabetes mellitus without complication E11.[address] 20628- 4654 Jan, Type 2 diabetes mellitus without complication E11.9 ; Numbness and tingling of both legs 782.0 ; Fibromyalgia M79.7 ; Hyperlipidemia E78.5 ; Lumbago M54.5 ; Cervicalgia M54.2 ; Hypertension I10 ; CAD (coronary artery disease) I25.10 ; Tobacco abuse Z72.0 ; Tobacco abuse counseling Z71.6 and GERD (gastroesophageal reflux disease) K21.9 [place] [address] 08491- 7185 Jan, [facility] [address] 59253- 5076 Dec, [facility] [address] [id number] Dec, Dental examination Z01.20 and Dental caries K02.[address] 87208- 2369 Dec, Edema R60.9 ; Type 2 diabetes mellitus without complication E11.9 ; Hypertension I10 and Mouth pain K13.[address] 81288- 5197 Dec, Degenerative disc disease, lumbar M51.[address] 41238- 3193 Dec, [address] 43999- 8437 Nov, Insomnia, unspecified G47.[address] 25011- 5530 Nov, Type 2 diabetes mellitus without complication E11.9 ; Lumbago M54.5 ; Degenerative disc disease, lumbar M51.36 ; Fibromyalgia M79.7 ; Coronary artery disease I25.10 ; Hyperlipidemia E78.5 ; Controlled substance agreement signed Z79.899 ; Dysuria R30.0 ; Insomnia, unspecified G47.00 ; GERD ( gastroesophageal reflux disease) K21.9 ; Hypertension 401.9 and [facility] current use of insulin Z79.[address] 35703- 4159 Nov, [address] 11175- 5126 Oct, Degenerative disc disease, lumbar M51.36 ; Cervicalgia M54.2 ; Insomnia, unspecified G47.00 ; Decreased GFR R94.4 and GERD ( gastroesophageal reflux disease) K21.9 [facility] [address] 53689- 8187 Oct, Lumbago M54.5 [place] [address] 31862- 9270 Oct, Low back pain M54.5 [place] [address] 58255- 5995 Oct, [place] [address] 36767- 8684 Oct, Disorientation R41.0 [place] [address] 02078- 6995 Oct, Type 2 diabetes mellitus without complication E11.9 ; Disorientation R41.0 and Chest pain R07.9 [place] [address] 72572- 5461 Oct, [place] [address] 98538- 1433 Sep, Low back pain M54.5 [place] [address] 30795- 1007 Sep, Insomnia, unspecified G47.00 [place] [address] 42380- 7318 Aug, Degenerative disc disease, lumbar M51.36 ; Type 2 diabetes mellitus without complication E11.9 and Encounter for immunization Z23 [place] [address] 44967- 8211 Aug, [place] [address] 44241- 2341 Aug, [place] [address] 70929- 9563 Aug, [facility] [address], [place] [address]- 3026 Jul, [facility] [address] [place] [id number] [place] [address] 59268- 8338 Jun, [facility] [address] [place] [id number] [place] [address] 95678- 8823 Jun, Chest pain 786.50 and Lumbago 724.2 [facility] [address] [place] [id number] [place] [address] 88930- 9652 Jun, [facility] [address] [place] [id number] [place] [address] 87834- 8293 Jun, [facility] [address] [place] [id number] [place] [address] [id number] Jun, Dental examination V72.2 [facility] [address] [place] [id number] [place] [address] 71607- 2724 Jun, [facility] [address] [place] [id number] [place] [address] 22779- 6585 May, Left shoulder pain 719.41 and Numbness and tingling of both legs 782.0 [facility] [address] [place] [address] 46557- 7147 May, Cough 786.2 ; Numbness and tingling of both legs 782.0 and Acute rhinitis 460 [facility] [address] [place] [address] 27901- 9123 May, [facility] [address] [place] [address] 07473- 0880 Apr, [facility] [address] [place] [id number] [place] [address] 58515- 8041 Apr, Bilateral lower extremity edema 782.3 ; Lumbago 724.2 and Insomnia 780.52 [facility] [address] [place] [id number] [place] [address] 55649- 2546 Apr, [facility] [address] [facility] [id number], [place] [address]- 0503 Apr, [facility] [address] [facility] [id number] 7060 March, Seborrheic keratosis 702.19 and Skin lesion of face 709.9 [facility] [address] [facility] [id number] [place] [address]- 1349 March, [facility] [address] [id number] [place] [address]- 3453 March, [facility] [address] [facility] [id number] [place] [address]- 3356 March, [facility] [address] [place] [id number] 2348 March, [facility] [address] [facility] [id number], [place] [address]- 2600 Feb, [facility] [address] [facility] [id number] [place] [address]- 3800 Feb, [facility] [address] [facility] [id number], [place] [address]- 1043 Jan, [facility] [address] [facility] [id number], [place] [address]- 7807 Jan, [facility] [address] [facility] [id number], [place] [address]- 1950 Jan, [facility] [address] [facility] [id number], [place] [address]- 2695 Jan, [facility] [address] [facility] [id number] [place] [address]- 0503 Jan, [facility] [address] [facility] [id number]- 5529 Jan, [facility] [address] [facility] [id number], [place] [address]- 7933 13 Jan, 2015 [facility] [place] [facility] [address] [id number] [place] [address]- 3343 13 Jan, 2015 [facility] [place] [facility] [address] [id number] [place] [address]- 0478 13 Jan, 2015 [facility] [place] [facility] [address] [facility] [id number] [place] [address]- 5564 Jan, [facility] [place] [facility] [address] [id number] [place] [address]- 9238 Jan, [facility] [place] [facility] [address] [id number] [place] [address]- 0520 Dec, [facility] [place] [facility] [address] [id number] [place] [address]- 5404 Dec, [facility] [place] [facility] [address] [facility] [id number] [place] [address]- 6114 Dec, [facility] [place] [facility] [address] [id number] [place] [address]- 6304 Dec, [facility] [place] [facility] [address] [id number] [place] [address]- 2798 Dec, [facility] [place] [facility] [address] [facility] [id number] [place] [address]- 1083 12 Dec, 2014 [facility] [place] [facility] [address] [id number] [place] [address]- 3311 15 Nov, 2014 [facility] [place] [facility] [address] [id number], [place] [address]- 7372 15 Nov, 2014 [facility] [place] [facility] [address] [id number] [place] [address]- 6609 14 Nov, 2014 [facility] [place] [facility] [address] [id number] [place] [address]- 4417 14 Nov, 2014 [facility] [place] [facility] [address] [facility] [id number], [place] [address]- 5501 Nov, [facility] [place] [facility] [address] [id number] [place] [address]- 9162 Nov, [facility] [place] [facility] [address] [id number] [place] [address]- 5085 Nov, [facility] [place] [facility] [address] [id number] [place] [address]- 0868 Nov, [facility] [place] [facility] [address] [id number] [place] [address]- 7042 Nov, [facility] [place] [facility] [address] [id number] [place] [address]- 1878 Nov, [facility] [place] [facility] [address] [id number] [place] [address]- 9625 Nov, [facility] [place] [facility] [address] [id number] [place] [address]- 7867 Oct, [facility] [place] [facility] [address] [id number] [place] [address]- 7162 Oct, [facility] [place] [facility] [address] [id number] [place] [address]- 1298 Oct, [facility] [place] [facility] [address] [id number] [place] [address]- 0806 Oct, [facility] [place] [facility] [address] [id number] [place] [address]- 9283 Oct, [facility] [place] [facility] [address] [id number] [place] [address]- 6004 Oct, [facility] [place] [facility] [address] [id number] [place] [address] Oct, [facility] [place] [facility] [address] [id number] [place] [address] Oct, [facility] [place] [facility] [address] [id number] [place] [address] Oct, [facility] [place] [facility] [address] [id number] [place] [address] Oct, [facility] [place] [facility] [address] [id number] [place] [address] Sep, [facility] [place] [facility] [address] [id number] [place] [address] Sep, [facility] [place] [facility] [address] [facility] [id number] [place] [address] Sep, [facility] [place] [facility] [address] [id number], [place] [address] Sep, [facility] [place] [facility] [address] [id number] [place] [address] Sep, [facility] [place] [facility] [address] [id number], [place] [address] Sep, [facility] [place] [facility] [address] [id number] [place] [address] Sep, [facility] [place] [facility] [address] [id number], [place] [address] Sep, [facility] [place] [facility] [address] [id number], [place] [address] Sep, [facility] [place] [facility] [address] [id number], [place] [address] Sep, [facility] [place] [facility] [address] [id number], [place] [address] Sep, [facility] [place] [facility] [address] [id number], [place] [address] Sep, [facility] [place] [facility] [address] [id number], [place] [address] Sep, [facility] [place] [facility] [address] [id number], [place] [address] Aug, [facility] [place] [facility] [address] [id number], [place] [address] Aug, [facility] [place] [facility] [address] [id number] [place] [address] Aug, 2013 [facility] [place] [facility] [address] [id number] [place] [address] Aug, 2013 [facility] [place] [facility] [address] [id number] [place] [address] Aug, 2013 [facility] [place] [facility] [address] [id number] [place] [address] Aug, 2013 [facility] [place] [facility] [address] [id number] [place] [address] Aug, [facility] [place] [facility] [address] [id number] [place] [address] Aug, [facility] [place] [facility] [address] [id number] [place] [address] Aug, [facility] [place] [facility] [address] [id number] [place] [address] Aug, [facility] [place] [facility] [address] [id number] [place] [address] Aug, [facility] [place] [facility] [address] [id number] [place] [address] Aug, 2013 [facility] [place] [facility] [address] [id number] [place] [address] Aug, [facility] [place] [facility] [address] [id number] [place] [address] Aug, 2013 [facility] [place] [facility] [address] [id number], [place] [address] Aug, [facility] [place] [facility] [address] [id number] [place] [address] Aug, 2013 [facility] [place] [facility] [address] [id number] [place] [address] Aug, 2013 [facility] [place] [facility] [address] [id number] [place] [address] Aug, [facility] [address] [facility] [id number], [place] [address] Jul, [facility] [address] [facility] [id number], [place] [address] Jul, [facility] [address] [facility] [id number], [place] [address] Jul, [facility] [address] [facility] [id number], [place] [address] Jul, [facility] [address] [facility] [id number], [place] [address] Jul, [facility] [address] [facility] [id number], [place] [address] Jul, [facility] [id number], [place] [address] Jul, [facility] [id number], [place] [address] Jul, [facility] [id number], [place] [address] Jul, [facility] [id number], [place] [address] Jul, [facility] [id number], [place] [address] Jul, [facility] [id number], [place] [address] Jul, [facility] [address] [id number], [place] [address] Jul, [facility] [id number], [place] [address] Jul, IMMUNIZATIONS No Known Immunizations SOCIAL HISTORY [...] illness, hyperglycemia 2017 Hospitalization History [facility]- High BS (Pt left AMA) 01/05/2018 Hospitalization History [facility]- DKA and UTI. Discharged 01/14/2018 Hospitalization History [facility]- Nausea and Vomiting, cannot urinate 01/18/2018
--- OUTSIDE RECORDS SUMMARY | 2018-08-30 10:18 | XMS REPORT ---
Author Author SATISH TABATHA [facility] Address [address] [place] [address] Care Team Providers Care Clinical Document Improvement Educator Name Role Phone SATISHMILENA REYNOLDSHANY Unavailable PROBLEMS Type Condition ICD9-CM Code VTO78-XQ Code Onset Dates Condition Status SNOMED Code Problem Seasonal allergic rhinitis due to pollen J30.1 Active 35582338 Problem Arthritis M19.90 Active 4914199 Problem Primary insomnia F51.01 Active 6270723 Problem Dysphagia, unspecified type R13.10 Active 81455954 Problem Hyperlipidemia E78.5 Active 37623254 Problem Type 2 diabetes mellitus with hyperglycemia E11.65 Active [id number] Problem Degenerative disc disease, lumbar M51.36 Active 43557416 Problem Alterations of sensations R20.9 Active 399184189 Problem Body mass index (BMI) of 33.0-33.9 in adult Z68.33 Active 151566124 Problem Other obesity due to excess calories E66.09 Active 250885572 Problem Cervicalgia M54.2 Active 31909329 Problem Diabetic mononeuropathy associated with type 2 diabetes mellitus E11.41 Active 280034555 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 Active 402919395 Problem Essential hypertension I10 Active 24689022 Problem Fibromyalgia M79.7 Active 89945768 Problem GERD (gastroesophageal reflux disease) K21.9 Active 860473798 Problem Tobacco abuse counseling Z71.6 Active 892641469 Problem Chronic pain syndrome G89.4 Active 982645046 Problem CAD (coronary artery disease) I25.10 Active 40103181 Problem DM neuro manif type II E11.49 Active 96810779 Problem Vitamin D deficiency E55.9 Active 39447403 Problem Tobacco abuse Z72.0 Active 92862867 Problem Dental caries K02.9 Active 62918591 ALLERGIES No Information ENCOUNTERS Encounter Location Date Diagnosis [facility] [address] [facility] [id number], [place] [address] Jul, [place] [address] [address], [place] [address] Jul, Elevated serum creatinine R79.89 [place] [id number] [place] [address] 15460- 5655 Jul, [place] [address] [place] [id number] [place] [address] 83494- 7481 Jul, [place] [address] [place] [id number] [place] [address] 32400- 0256 Jul, [place] [address] [place] [id number] [place] [address] 72251- 3307 Jun, DM neuro manif type II E11.49 ; Hyperlipidemia E78.5 ; GERD (gastroesophageal reflux disease) K21.9 ; Fibromyalgia M79.7 ; 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 ; Chronic pain syndrome G89.4 ; Primary insomnia F51.01 ; Seasonal allergic rhinitis due to pollen J30.1 ; Elevated serum creatinine R79.89 and Dysphagia, unspecified type R13.10 [place] [id number] [place] [address] 71299- 8797 Apr, Type 2 diabetes mellitus with hyperglycemia E11.65 [place] [id number] [place] [address] 23190- 7521 Apr, Hyperlipidemia E78.5 ; Chronic pain syndrome G89.4 ; Cervicalgia M54.2 ; DM neuro manif type II E11.49 ; 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 ; Nausea alone R11.0 ; Essential hypertension I10 ; GERD ( gastroesophageal reflux disease) K21.9 ; CAD (coronary artery disease) I25.10 and Diabetic mononeuropathy associated with type 2 diabetes mellitus E11.41 [place] [address] [place] [address] 67961- 0301 Apr, [place] [id number] [place] [address] 44261- 4567 March, Essential hypertension I10 ; DM neuro manif type II E11.49 and GERD (gastroesophageal reflux disease) K21.9 [place] [address] [place] [id number] [place] [address] 95296- 7381 March, DM neuro manif type II E11.49 and GERD (gastroesophageal reflux disease) K21.9 [facility] [address] [place] [id number] [place] [address] 25253- 6995 March, [place] [address] 41390- 4971 Feb, Tobacco abuse Z72.0 [place] [address] 68372- 7522 Feb, Tobacco abuse Z72.0 [place] [address] 50822- 4508 Feb, Hypokalemia E87.6 [place] [address] 11847- 8383 Feb, Hyperlipidemia E78.5 ; Essential hypertension I10 ; DM neuro manif type II E11.49 ; Fibromyalgia M79.7 ; Acute non-recurrent frontal sinusitis J01.10 ; Other obesity due to excess calories E66.09 and Body mass index (BMI) of 33.0-33.9 in adult Z68.33 [place] [address] [place] [id number] [place] [address] 00592- 1266 Jan, Dysuria R30.0 [place] [address] 82133- 4624 Jan, Dysuria R30.0 [place] [address] [place] [id number] [place] [address] 43700- 6617 Jan, Acute cystitis with hematuria N30.01 ; DM neuro manif type II E11.49 ; 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 ; Essential hypertension I10 and Hospital discharge follow-up Z09 [place] [address] [place] [id number] [place] [address] 72710- 3467 27 Dec, 2017 Chest pain, unspecified type R07.9 ; Dehydration E86.0 and Anuria R34 [place] [address] [place] [id number] [place] [address] 92086- 2093 Dec, [id number]- 7716 Dec, Hyperglycemia R73.9 ; Dehydration E86.0 and Acute cystitis with hematuria N30.01 [facility] [place] [address] 20170 -3420 Dec, [facility] [place] [address] 49069 -7953 Dec, [facility] [place] [address] 50588 -2629 Dec, [facility] [place] [address] 01467 -9452 Dec, Dysuria R30.0 ; Acute cystitis with hematuria N30.01 and Weakness R53.1 [place] [address] 18695- 1942 Dec, [place] [address] 74413- 9768 Nov, [place] [address] 56444- 4619 Nov, [address] 64989- 8498 Nov, Essential hypertension I10 ; DM neuro manif type II E11.49 ; detention current use of insulin Z79.4 ; Tobacco abuse Z72.0 ; Hyperlipidemia E78.5 ; Non-adherence to medical treatment Z91.19 ; GERD (gastroesophageal reflux disease) K21.9 ; Degenerative disc disease, lumbar M51.36 ; Fibromyalgia M79.7 ; Chronic pain syndrome G89.4 ; Dental caries K02.9 and Seasonal allergic rhinitis due to pollen J30.1 [place] [id number] [address] 7232 Nov, Alterations of sensations R20.9 [facility] [address] 40864- 5954 Sep, DM neuro manif type II E11.49 ; Hyperlipidemia E78.5 ; Degenerative disc disease, lumbar M51.36 and Chronic pain syndrome G89.4 [facility] [address] 37722- 0431 Sep, Arthritis M19.90 [place] [address] 71490- 8346 Sep, Type 2 diabetes mellitus without complication E11.9 ; GERD ( gastroesophageal reflux disease) K21.9 ; Arthritis M19.90 and Chronic pain syndrome G89.4 [place] [address] 38839- 1565 Sep, [facility] [address] 84904- 7549 Aug, [facility] [address] [place] [id number] [place] [address] 53465- 0628 Aug, Type 2 diabetes mellitus without complication E11.9 [facility] [address] [place] [id number] [place] [address] 20242- 6852 Aug, [facility] [address] [place] [id number] [place] [address] 18991- 7896 Aug, [facility] [address] [place] [id number] [place] [address] 02655- 9147 Aug, [facility] [address] [place] [id number] [place] [address] 19181- 2141 Jul, [facility] [address] [place] [id number] [place] [address] 73749 -8169 22 Jul, 2017 Acute non-recurrent frontal sinusitis J01.10 [facility] [address] [place] [id number] [place] [address] 24047- 8907 20 Jul, 2017 CAD (coronary artery disease) I25.10 and GERD ( gastroesophageal reflux disease) K21.9 [place] [address] [place] [id number] [place] [address] 31214- 2825 14 Jul, 2017 Localized swelling, mass and lump, neck R22.1 [place] [address] [place] [id number] [place] [address] 85695- 1154 06 Jul, 2017 [place] [address] 11397- 7078 Jun, Type 2 diabetes mellitus without complication E11.9 ; Primary insomnia F51.01 ; Alterations of sensations R20.9 ; Hyperlipidemia E78.5 ; GERD (gastroesophageal reflux disease) K21.9 ; Essential hypertension I10 ; detention current use of insulin Z79.4 ; Tobacco abuse Z72.0 ; Tobacco abuse counseling Z71.6 and CAD (coronary artery disease) I25.10 [place] [address] 58519- 1126 May, [place] [address] [place] [id number] [place] [address] 65129- 0308 May, Type 2 diabetes mellitus without complication E11.9 [place] [address] [place] [id number] [place] [address] 61856- 9169 May, [place] [address] [place] [id number] [place] [address] 92921- 6277 March, [place] [address] [place] [id number] [place] [address] 89715- 9896 Feb, [facility] [address] [place] [id number] [place] [address] 06609 -2562 Jan, Acute suppurative otitis media of left ear with spontaneous rupture of tympanic membrane, recurrence not specified H66.012 [place] [address] [place] [id number] [place] [address] 29464- 5228 17 Dec, 2016 Type 2 diabetes mellitus without complication E11.9 ; Lumbago M54.5 ; Cervicalgia M54.2 ; Hyperlipidemia E78.5 ; GERD ( gastroesophageal reflux disease) K21.9 ; Chronic pain syndrome G89.4 ; Dysuria R30.0 and Essential hypertension I10 [place] [address] 78988- 3342 Oct, [place] [address] 74718- 2595 30 Sep, 2016 Diabetic mononeuropathy associated with type 2 diabetes mellitus E11.41 and Coughing R05 [place] [address] 13783- 7172 28 Sep, 2016 Diabetic mononeuropathy associated with type 2 diabetes mellitus E11.41 and Coughing R05 [place] [address] 49447- 1073 18 Sep, 2016 Onychomycosis B35.1 ; Neuritis M79.2 and Type 2 diabetes mellitus without complication E11.9 [place] [address] 41411- 2170 14 Sep, 2016 [place] [address] 13565- 0054 03 Sep, 2016 Cough R05 ; Seasonal allergic rhinitis due to pollen J30.1 and Acute upper respiratory infection, unspecified J06.9 [place] [address] 42551- 1777 02 Sep, 2016 [place] [address] 68165- 4446 Aug, [place] [address] 53898- 8193 13 Jul, 2016 Type 2 diabetes mellitus without complication E11.9 ; Chronic pain G89.29 ; Essential hypertension I10 and Acute non-recurrent maxillary sinusitis J01.00 [place] [address] 04284- 8134 02 Jul, 2016 Chronic pain syndrome G89.4 ; Lumbago M54.5 and Cervicalgia M54.2 [place] [address] [place] [id number] [place] [address] 97606- 7875 Jul, [place] [address] [place] [id number] [place] [address] 30364- 2749 Jul, [place] [address] [place] [id number] [place] [address] 48062- 8173 Jun, Onychomycosis B35.1 ; Onychocryptosis L60.0 and DM neuro manif type II E11.49 [place] [id number] [place] [address] 71852- 3066 Jun, Type 2 diabetes mellitus without complication E11.9 ; Pain in unspecified hip M25.559 ; Other chronic pain G89.29 ; Lumbago M54.5 ; Chronic pain G89.29 ; Insomnia, unspecified G47.00 ; GERD (gastroesophageal reflux disease) K21.9 and Dental caries K02.9 [place] [address] [place] [id number] [place] [address] 16104- 9641 Jun, Type 2 diabetes mellitus without complication E11.9 ; Lumbago M54.5 ; Chronic pain G89.29 ; Insomnia, unspecified G47.00 ; GERD ( gastroesophageal reflux disease) K21.9 ; Dental caries K02.9 ; Pain in unspecified hip M25.559 and Other chronic pain G89.29 [place] [address] [place] [id number] [place] [address] 50676- 7365 May, [place] [address] [place] [id number] [place] [address] 43959- 5630 May, Type 2 diabetes mellitus without complication E11.9 ; Essential hypertension I10 ; Chronic pain syndrome G89.4 ; Other seasonal allergic rhinitis J30.2 and Insomnia, unspecified G47.00 [place] [address] [place] [id number] [place] [address] 30179- 0227 Apr, [place] [address] [place] [id number] [place] [address] 13720- 1779 Apr, Hypertension I10 and Chronic pain G89.29 [place] [address] [place] [id number] [place] [address] 09432- 3950 March, Onychomycosis B35.1 ; Onychocryptosis L60.0 and Type 2 diabetes mellitus without complication E11.9 [place] [address] [place] [id number] [place] [address] 73974- 6276 March, Type 2 diabetes mellitus without complication E11.9 ; Essential hypertension I10 ; Alterations of sensations R20.9 ; Chronic pain syndrome G89.4 ; Tobacco abuse Z72.0 and Tobacco abuse counseling Z71.[address] 64031- 5351 Feb, Cough R05 ; Type 2 diabetes mellitus without complication E11.9 ; Tobacco abuse counseling Z71.6 and Chronic pain G89.[address] 08446- 7729 Feb, [place] [address] 09788- 4956 Feb, Type 2 diabetes mellitus without complication E11.9 ; Lumbago M54.5 ; Cervicalgia M54.2 ; Degenerative disc disease, lumbar M51.36 and Numbness and tingling of both legs 782.0 [facility] [address] [place] [id number] [place] [address] [id number] Jan, Dental caries K02.9 and Encounter for dental examination Z01.20 [place] [id number] [place] [address] 76595- 6985 Jan, Type 2 diabetes mellitus without complication E11.[address] 39681- 5420 Jan, Type 2 diabetes mellitus without complication E11.9 ; Numbness and tingling of both legs 782.0 ; Fibromyalgia M79.7 ; Hyperlipidemia E78.5 ; Lumbago M54.5 ; Cervicalgia M54.2 ; Hypertension I10 ; CAD (coronary artery disease) I25.10 ; Tobacco abuse Z72.0 ; Tobacco abuse counseling Z71.6 and GERD (gastroesophageal reflux disease) K21.9 [place] [address] 90434- 8865 Jan, [facility] [address] 91417- 2571 Dec, [facility] [address] [id number] Dec, Dental examination Z01.20 and Dental caries K02.[address] 31522- 3994 Dec, Edema R60.9 ; Type 2 diabetes mellitus without complication E11.9 ; Hypertension I10 and Mouth pain K13.[address] 29934- 0680 Dec, Degenerative disc disease, lumbar M51.[address] 80582- 3181 Dec, [address] 62053- 0196 Nov, Insomnia, unspecified G47.[address] 52098- 8006 Nov, Type 2 diabetes mellitus without complication E11.9 ; Lumbago M54.5 ; Degenerative disc disease, lumbar M51.36 ; Fibromyalgia M79.7 ; Coronary artery disease I25.10 ; Hyperlipidemia E78.5 ; Controlled substance agreement signed Z79.899 ; Dysuria R30.0 ; Insomnia, unspecified G47.00 ; GERD ( gastroesophageal reflux disease) K21.9 ; Hypertension 401.9 and detention current use of insulin Z79.[address] 87341- 8424 Nov, [address] 09446- 9635 Oct, Degenerative disc disease, lumbar M51.36 ; Cervicalgia M54.2 ; Insomnia, unspecified G47.00 ; Decreased GFR R94.4 and GERD ( gastroesophageal reflux disease) K21.9 [facility] [address] 49894- 6805 Oct, Lumbago M54.5 [place] [address] 28519- 8409 Oct, Low back pain M54.5 [place] [address] 95185- 7360 Oct, [place] [address] 48709- 2835 Oct, Disorientation R41.0 [place] [address] 33427- 0727 Oct, Type 2 diabetes mellitus without complication E11.9 ; Disorientation R41.0 and Chest pain R07.9 [place] [address] 19395- 3087 Oct, [place] [address] 57652- 8289 Sep, Low back pain M54.5 [place] [address] 68687- 0383 Sep, Insomnia, unspecified G47.00 [place] [address] 28735- 4055 Aug, Degenerative disc disease, lumbar M51.36 ; Type 2 diabetes mellitus without complication E11.9 and Encounter for immunization Z23 [place] [address] 59013- 2645 Aug, [place] [address] 29771- 1796 Aug, [place] [address] 17491- 8312 Aug, [facility] [address], [place] [address]- 4713 Jul, [facility] [address] [place] [id number] [place] [address] 80635- 3728 Jun, [facility] [address] [place] [id number] [place] [address] 44558- 8963 Jun, Chest pain 786.50 and Lumbago 724.2 [facility] [address] [place] [id number] [place] [address] 35407- 8652 Jun, [facility] [address] [place] [id number] [place] [address] 97204- 6796 Jun, [facility] [address] [place] [id number] [place] [address] [id number] Jun, Dental examination V72.2 [facility] [address] [place] [id number] [place] [address] 15315- 1142 Jun, [facility] [address] [place] [id number] [place] [address] 75587- 6141 May, Left shoulder pain 719.41 and Numbness and tingling of both legs 782.0 [facility] [address] [place] [address] 20359- 7671 May, Cough 786.2 ; Numbness and tingling of both legs 782.0 and Acute rhinitis 460 [facility] [address] [place] [address] 69729- 1386 May, [facility] [address] [place] [address] 28074- 5726 Apr, [facility] [address] [place] [id number] [place] [address] 73062- 8401 Apr, Bilateral lower extremity edema 782.3 ; Lumbago 724.2 and Insomnia 780.52 [facility] [address] [place] [id number] [place] [address] 06323- 2546 Apr, [facility] [address] [facility] [id number], [place] [address]- 9566 Apr, [facility] [address] [facility] [id number] 8133 March, Seborrheic keratosis 702.19 and Skin lesion of face 709.9 [facility] [address] [facility] [id number] [place] [address]- 5723 March, [facility] [address] [id number] [place] [address]- 1328 March, [facility] [address] [facility] [id number] [place] [address]- 0454 March, [facility] [address] [place] [id number] 9091 March, [facility] [address] [facility] [id number], [place] [address]- 5279 Feb, [facility] [address] [facility] [id number] [place] [address]- 2788 Feb, [facility] [address] [facility] [id number], [place] [address]- 4883 Jan, [facility] [address] [facility] [id number], [place] [address]- 5783 Jan, [facility] [address] [facility] [id number], [place] [address]- 4535 Jan, [facility] [address] [facility] [id number], [place] [address]- 7886 Jan, [facility] [address] [facility] [id number] [place] [address]- 3269 Jan, [facility] [address] [facility] [id number]- 4712 Jan, [facility] [address] [facility] [id number], [place] [address]- 2361 13 Jan, 2015 [facility] [place] [facility] [address] [id number] [place] [address]- 1168 13 Jan, 2015 [facility] [place] [facility] [address] [id number] [place] [address]- 3160 13 Jan, 2015 [facility] [place] [facility] [address] [facility] [id number] [place] [address]- 6457 Jan, [facility] [place] [facility] [address] [id number] [place] [address]- 1170 Jan, [facility] [place] [facility] [address] [id number] [place] [address]- 2994 Dec, [facility] [place] [facility] [address] [id number] [place] [address]- 9444 Dec, [facility] [place] [facility] [address] [facility] [id number] [place] [address]- 0722 Dec, [facility] [place] [facility] [address] [id number] [place] [address]- 7103 Dec, [facility] [place] [facility] [address] [id number] [place] [address]- 7011 Dec, [facility] [place] [facility] [address] [facility] [id number] [place] [address]- 9187 12 Dec, 2014 [facility] [place] [facility] [address] [id number] [place] [address]- 9070 15 Nov, 2014 [facility] [place] [facility] [address] [id number], [place] [address]- 7972 15 Nov, 2014 [facility] [place] [facility] [address] [id number] [place] [address]- 6764 14 Nov, 2014 [facility] [place] [facility] [address] [id number] [place] [address]- 7781 14 Nov, 2014 [facility] [place] [facility] [address] [facility] [id number], [place] [address]- 8039 Nov, [facility] [place] [facility] [address] [id number] [place] [address]- 8399 Nov, [facility] [place] [facility] [address] [id number] [place] [address]- 1203 Nov, [facility] [place] [facility] [address] [id number] [place] [address]- 0701 Nov, [facility] [place] [facility] [address] [id number] [place] [address]- 1195 Nov, [facility] [place] [facility] [address] [id number] [place] [address]- 6759 Nov, [facility] [place] [facility] [address] [id number] [place] [address]- 6902 Nov, [facility] [place] [facility] [address] [id number] [place] [address]- 3322 Oct, [facility] [place] [facility] [address] [id number] [place] [address]- 8571 Oct, [facility] [place] [facility] [address] [id number] [place] [address]- 3849 Oct, [facility] [place] [facility] [address] [id number] [place] [address]- 5380 Oct, [facility] [place] [facility] [address] [id number] [place] [address]- 7276 Oct, [facility] [place] [facility] [address] [id number] [place] [address] Oct, [facility] [place] [facility] [address] [id number] [place] [address] Oct, [facility] [place] [facility] [address] [id number] [place] [address] [address] Oct, [facility] [place] [facility] [address] [id number] [place] [address] Oct, [facility] [place] [facility] [address] [id number] [place] [address] Oct, [facility] [place] [facility] [address] [id number] [place] [address] Sep, [facility] [place] [facility] [address] [id number] [place] [address] Sep, [facility] [place] [facility] [address] [facility] [id number] [place] [address] Sep, [facility] [place] [facility] [address] [id number], [place] [address] Sep, [facility] [place] [facility] [address] [id number] [place] [address] Sep, [facility] [place] [facility] [address] [id number], [place] [address] Sep, [facility] [place] [facility] [address] [id number] [place] [address] Sep, [facility] [place] [facility] [address] [id number], [place] [address] Sep, [facility] [place] [facility] [address] [id number], [place] [address] Sep, [facility] [place] [facility] [address] [id number], [place] [address] Sep, [facility] [place] [facility] [address] [id number], [place] [address] Sep, [facility] [place] [facility] [address] [id number], [place] [address] Sep, [facility] [place] [facility] [address] [id number], [place] [address] Sep, [facility] [place] [facility] [address] [id number], [place] [address] Aug, [facility] [place] [facility] [address] [id number], [place] [address] Aug, [facility] [place] [facility] [address] [id number] [place] [address] Aug, 2013 [facility] [place] [facility] [address] [id number] [place] [address] Aug, 2013 [facility] [place] [facility] [address] [id number] [place] [address] Aug, 2013 [facility] [place] [facility] [address] [id number] [place] [address] Aug, 2013 [facility] [place] [facility] [address] [id number] [place] [address] 2012 Aug, [facility] [place] [facility] [address] [id number] [place] [address] Aug, [facility] [place] [facility] [address] [id number] [place] [address] Aug, [facility] [place] [facility] [address] [id number] [place] [address] Aug, [facility] [place] [facility] [address] [id number] [place] [address] Aug, [facility] [place] [facility] [address] [id number] [place] [address] Aug, 2013 [facility] [place] [facility] [address] [id number] [place] [address] Aug, [facility] [place] [facility] [address] [id number] [place] [address] Aug, 2013 [facility] [place] [facility] [address] [id number], [place] [address] Aug, [facility] [place] [facility] [address] [id number] [place] [address] Aug, 2013 [facility] [place] [facility] [address] [id number] [place] [address] Aug, 2013 [facility] [place] [facility] [address] [id number] [place] [address] Aug, [facility] [address] [facility] [id number], [place] [address] Jul, [facility] [address] [facility] [id number], [place] [address] Jul, [facility] [address] [facility] [id number], [place] [address] Jul, [facility] [address] [facility] [id number], [place] [address] Jul, [facility] [address] [facility] [id number], [place] [address] Jul, [facility] [address] [facility] [id number], [place] [address] Jul, [facility] [id number], [place] [address] Jul, [facility] [id number], [place] [address] Jul, [facility] [id number], [place] [address] Jul, [facility] [id number], [place] [address] Jul, [facility] [id number], [place] [address] Jul, [facility] [id number], [place] [address] Jul, [facility] [address] [id number], [place] [address] Jul, [facility] [id number], [place] [address] Jul, IMMUNIZATIONS No Known Immunizations SOCIAL HISTORY Never Assessed REASON FOR VISIT TCM call/med list update PLAN OF CARE VITAL SIGNS MEDICATIONS Medication Instructions Dosage Frequency Start Date End Date Duration Status Omeprazole 20 mg Orally Once a day 1 capsule 24h Active Ranitidine HCl 150 MG Orally twice a day 1 tablet 12h Active Atorvastatin Calcium 40 mg Orally Once a day 1 tablet 24h March, Active Levemir FlexTouch 100 UNIT/ML INJECT 40 UNITS SUBCUTANEOUSLY once DAILY Active Tradjenta 5 MG TAKE ONE TABLET BY MOUTH ONCE DAILY Active Varenicline Tartrate 1 MG Orally Twice a day take 1/2 tab daily on days 1-3, then 1/2 tab twice daily on day 4-6, then 1 tablet twice daily 12h Nov, 30 day(s) Not-Taking Benadryl Not-Taking Humalog 100 UNIT/ML per sliding scale Active Oxycodone HCl 10 mg Orally once a day 1 tablet as needed 24h Active Amlodipine Besylate 10 MG Orally Once a day 1 tablet 24h 30 day(s) Active Percocet 10-325 MG Orally every 4- 6 hrs 1 tablet as needed Active Aspirin 81 MG Orally Once a day 1 tablet 24h Active Gabapentin 800 MG 2 tablets at bedtime and 1 tabled daily as needed Active RESULTS No Results PROCEDURES No Known [...] Influenza illness, hyperglycemia 2017 Hospitalization History ED [place]- High BS (Pt left AMA) 01/05/2018 Hospitalization History [facility]- DKA and UTI. Discharged 01/14/2018 Hospitalization History ED [place]- Nausea and Vomiting, cannot urinate 01/18/2018
--- OUTSIDE RECORDS SUMMARY | 2018-08-30 10:18 | XMS REPORT ---
Author Author BURKSMARCELINO Rene Organization [facility] Address [address] [place] [address] Care Team Providers Care Commercial Counsel Name Role Phone BURKSMARCELINO Rene Unavailable PROBLEMS Type Condition ICD9-CM Code [id number] Code Onset Dates Condition Status SNOMED Code Problem Seasonal allergic rhinitis due to pollen J30.1 Active 65032244 Problem Arthritis M19.90 Active 7017151 Problem Primary insomnia F51.01 Active 9799614 Problem Dysphagia, unspecified type R13.10 Active 60861474 Problem Hyperlipidemia E78.5 Active 93009837 Problem Type 2 diabetes mellitus with hyperglycemia E11.65 Active [id number] Problem Degenerative disc disease, lumbar M51.36 Active 82896591 Problem Alterations of sensations R20.9 Active 511851200 Problem Body mass index (BMI) of 33.0-33.9 in adult Z68.33 Active 928468269 Problem Other obesity due to excess calories E66.09 Active 830065082 Problem Cervicalgia M54.2 Active 09506755 Problem Diabetic mononeuropathy associated with type 2 diabetes mellitus E11.41 Active 453089616 Problem USP current use of insulin Z79.4 Active 719092731 Problem Essential hypertension I10 Active 01679096 Problem Fibromyalgia M79.7 Active 84889697 Problem GERD (gastroesophageal reflux disease) K21.9 Active 029524383 Problem Tobacco abuse counseling Z71.6 Active 589610606 Problem Chronic pain syndrome G89.4 Active 307785028 Problem CAD (coronary artery disease) I25.10 Active 39375261 Problem DM neuro manif type II E11.49 Active 34414321 Problem Vitamin D deficiency E55.9 Active 47789764 Problem Tobacco abuse Z72.0 Active 84838851 Problem Dental caries K02.9 Active 46893584 ALLERGIES Substance Reaction Event Type Date Status Zofran Unknown Drug Allergy Jun, Active Reglan restless leg; anything in reglan family Drug Allergy Jun, Active Toradol Unknown Drug Allergy Jun, Active LATEX Unknown Non Drug Allergy Jun, Active ENCOUNTERS Encounter Location Date Diagnosis [place] [id number] [place] [address] 56778- 7255 Jul, [facility] [id number] [place] [address] 30431- 2914 Jul, Elevated serum creatinine R79.89 [place] [address] 66640- 2216 Jul, [place] [id number] [place] [address] 08913- 7627 Jul, [place] [address] 09509- 4049 Jul, [place] [id number] [place] [address] 74022- 3921 Jun, DM neuro manif type II E11.49 ; Hyperlipidemia E78.5 ; GERD (gastroesophageal reflux disease) K21.9 ; Fibromyalgia M79.7 ; USP current use of insulin Z79.4 ; Chronic pain syndrome G89.4 ; Primary insomnia F51.01 ; Seasonal allergic rhinitis due to pollen J30.1 ; Elevated serum creatinine R79.89 and Dysphagia, unspecified type R13.10 [place] [id number] [place] [address] 94682- 5964 Apr, Type 2 diabetes mellitus with hyperglycemia E11.65 [place] [id number] [place] [address] 72907- 2926 Apr, Hyperlipidemia E78.5 ; Chronic pain syndrome G89.4 ; Cervicalgia M54.2 ; DM neuro manif type II E11.49 ; 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 ; Nausea alone R11.0 ; Essential hypertension I10 ; GERD ( gastroesophageal reflux disease) K21.9 ; CAD (coronary artery disease) I25.10 and Diabetic mononeuropathy associated with type 2 diabetes mellitus E11.41 [place] [id number] [place] [address] 89240- 3158 Apr, [place] [id number] [place] [address] 06368- 7169 March, Essential hypertension I10 ; DM neuro manif type II E11.49 and GERD (gastroesophageal reflux disease) K21.9 [place] [id number] [place] [address] 41144- 9160 March, DM neuro manif type II E11.49 and GERD (gastroesophageal reflux disease) K21.9 [place] [address] 77253- 4507 March, [place] [address] 18766- 7508 Feb, Tobacco abuse Z72.0 [place] [address] 70740- 9705 Feb, Tobacco abuse Z72.0 [place] [address] 05390- 2633 Feb, Hypokalemia E87.6 [place] [address] 25078- 2706 Feb, Hyperlipidemia E78.5 ; Essential hypertension I10 ; DM neuro manif type II E11.49 ; Fibromyalgia M79.7 ; Acute non-recurrent frontal sinusitis J01.10 ; Other obesity due to excess calories E66.09 and Body mass index (BMI) of 33.0-33.9 in adult Z68.33 [place] [id number] [place] [address] 52274- 3280 Jan, Dysuria R30.[address] 26524- 3638 Jan, Dysuria R30.0 [place] [id number] [place] [address] 45676- 5740 Jan, Acute cystitis with hematuria N30.01 ; DM neuro manif type II E11.49 ; 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 ; Essential hypertension I10 and Hospital discharge follow-up Z09 [place] [id number] [address]- 1955 27 Dec, 2017 Chest pain, unspecified type R07.9 ; Dehydration E86.0 and Anuria R34 [place] [address] 56072- 3960 Dec, [place] [address] 31165- 3610 Dec, Hyperglycemia R73.9 ; Dehydration E86.0 and Acute cystitis with hematuria N30.01 [facility] [address] 29[address] -5865 Dec, [facility] [place] [address] 78807 -7441 Dec, [facility] [address] 30632 -3193 Dec, [facility] [address] [place] [address] 43368 -4371 16 Dec, 2017 Dysuria R30.0 ; Acute cystitis with hematuria N30.01 and Weakness R53.1 [place] [address] 74530- 2536 Dec, [place] [address] 26042- 9287 Nov, [place] [id number] [place] [address] 06510- 9716 Nov, [address] 16220- 1152 Nov, Essential hypertension I10 ; DM neuro manif type II E11.49 ; USP current use of insulin Z79.4 ; Tobacco abuse Z72.0 ; Hyperlipidemia E78.5 ; Non-adherence to medical treatment Z91.19 ; GERD (gastroesophageal reflux disease) K21.9 ; Degenerative disc disease, lumbar M51.36 ; Fibromyalgia M79.7 ; Chronic pain syndrome G89.4 ; Dental caries K02.9 and Seasonal allergic rhinitis due to pollen J30.1 [facility] [address] 07118- 5955 Nov, Alterations of sensations R20.9 [facility] [address] 57206- 4837 Sep, DM neuro manif type II E11.49 ; Hyperlipidemia E78.5 ; Degenerative disc disease, lumbar M51.36 and Chronic pain syndrome G89.4 [facility] [address] 75499- 0211 Sep, Arthritis M19.90 [facility] [address] 45892- 2737 Sep, Type 2 diabetes mellitus without complication E11.9 ; GERD ( gastroesophageal reflux disease) K21.9 ; Arthritis M19.90 and Chronic pain syndrome G89.4 [facility] [address] 87143- 3464 Sep, [facility] [address] 91602- 8997 Aug, [facility] [address] 42261- 3548 Aug, Type 2 diabetes mellitus without complication E11.9 [facility] [address] 04952- 5749 Aug, [facility] [address] 43601- 1448 Aug, [facility] [address] 77590- 2568 Aug, [facility] [address] 24694- 1176 Jul, [facility] [address] 77752 -4413 Jul, Acute non-recurrent frontal sinusitis J01.10 [facility] [id number] [place] [address] 86011- 4628 20 Jul, 2017 CAD (coronary artery disease) I25.10 and GERD ( gastroesophageal reflux disease) K21.9 [place] [id number] [place] [address] 59377- 4045 14 Jul, 2017 Localized swelling, mass and lump, neck R22.1 [place] [id number] [place] [address] 10879- 8559 06 Jul, 2017 [place] [address] 25595- 8052 15 Jun, 2017 Type 2 diabetes mellitus without complication E11.9 ; Primary insomnia F51.01 ; Alterations of sensations R20.9 ; Hyperlipidemia E78.5 ; GERD (gastroesophageal reflux disease) K21.9 ; Essential hypertension I10 ; 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 ; Tobacco abuse Z72.0 ; Tobacco abuse counseling Z71.6 and CAD (coronary artery disease) I25.10 [facility] [id number] [place] [address] 36465- 3566 May, [place] [id number] [place] [address] 83557- 3100 May, Type 2 diabetes mellitus without complication E11.9 [facility] [id number] [place] [address] 34564- 9182 May, [facility] [id number] [place] [address] 21169- 0728 March, [facility] [id number] [place] [address] 24887- 7076 Feb, [facility] [id number] [place] [address] 35476 -0672 Jan, Acute suppurative otitis media of left ear with spontaneous rupture of tympanic membrane, recurrence not specified H66.012 [facility] [id number] [place] [address] 57314- 9395 17 Dec, 2016 Type 2 diabetes mellitus without complication E11.9 ; Lumbago M54.5 ; Cervicalgia M54.2 ; Hyperlipidemia E78.5 ; GERD ( gastroesophageal reflux disease) K21.9 ; Chronic pain syndrome G89.4 ; Dysuria R30.0 and Essential hypertension I10 [address] 16483- 9751 Oct, [place] [address] 28010- 1485 30 Sep, 2016 Diabetic mononeuropathy associated with type 2 diabetes mellitus E11.41 and Coughing R05 [place] [address] 27955- 2933 Sep, Diabetic mononeuropathy associated with type 2 diabetes mellitus E11.41 and Coughing R05 [place] [address] 47885- 4386 Sep, Onychomycosis B35.1 ; Neuritis M79.2 and Type 2 diabetes mellitus without complication E11.9 [place] [address] 13562- 9429 Sep, [address] 37181- 0463 Sep, Cough R05 ; Seasonal allergic rhinitis due to pollen J30.1 and Acute upper respiratory infection, unspecified J06.9 [place] [id number] [place] [address] 14445- 3649 Sep, [place] [address] 93516- 7290 Aug, [place] [address] 35267- 6944 13 Jul, 2016 Type 2 diabetes mellitus without complication E11.9 ; Chronic pain G89.29 ; Essential hypertension I10 and Acute non-recurrent maxillary sinusitis J01.00 [place] [address] [address]- 4837 Jul, Chronic pain syndrome G89.4 ; Lumbago M54.5 and Cervicalgia M54.2 [place] [id number] [place] [address] 19222- 6932 Jul, [place] [id number] [place] [address] 07425- 6852 Jul, [place] [id number] [place] [address] 24600- 6793 Jun, Onychomycosis B35.1 ; Onychocryptosis L60.0 and DM neuro manif type II E11.49 [place] [id number] [place] [address] 07851- 9869 Jun, Type 2 diabetes mellitus without complication E11.9 ; Pain in unspecified hip M25.559 ; Other chronic pain G89.29 ; Lumbago M54.5 ; Chronic pain G89.29 ; Insomnia, unspecified G47.00 ; GERD (gastroesophageal reflux disease) K21.9 and Dental caries K02.9 [place] [id number] [place] [address] 99619- 3221 Jun, Type 2 diabetes mellitus without complication E11.9 ; Lumbago M54.5 ; Chronic pain G89.29 ; Insomnia, unspecified G47.00 ; GERD ( gastroesophageal reflux disease) K21.9 ; Dental caries K02.9 ; Pain in unspecified hip M25.559 and Other chronic pain G89.29 [place] [id number] [place] [address] 98127- 5580 May, [place] [id number] [place] [address] 37890- 2595 May, Type 2 diabetes mellitus without complication E11.9 ; Essential hypertension I10 ; Chronic pain syndrome G89.4 ; Other seasonal allergic rhinitis J30.2 and Insomnia, unspecified G47.00 [place] [id number] [place] [address] 06958- 7527 Apr, [place] [id number] [place] [address] 57399- 9739 Apr, Hypertension I10 and Chronic pain G89.29 [place] [id number] [place] [address] 58907- 6869 March, Onychomycosis B35.1 ; Onychocryptosis L60.0 and Type 2 diabetes mellitus without complication E11.9 [place] [id number] [place] [address] 21153- 0838 March, Type 2 diabetes mellitus without complication E11.9 ; Essential hypertension I10 ; Alterations of sensations R20.9 ; Chronic pain syndrome G89.4 ; Tobacco abuse Z72.0 and Tobacco abuse counseling Z71.6 [place] [id number] [place] [address] 41068- 6798 Feb, Cough R05 ; Type 2 diabetes mellitus without complication E11.9 ; Tobacco abuse counseling Z71.6 and Chronic pain G89.29 [place] [id number] [place] [address] 40848- 2545 Feb, [place] [id number] [place] [address] 72405- 0355 Feb, Type 2 diabetes mellitus without complication E11.9 ; Lumbago M54.5 ; Cervicalgia M54.2 ; Degenerative disc disease, lumbar M51.36 and Numbness and tingling of both legs 782.0 [facility] [address] [place] [address] [id number] 24 Jan, 2016 Dental caries K02.9 and Encounter for dental examination Z01.20 [place] [id number] [place] [address] 97325- 7228 Jan, Type 2 diabetes mellitus without complication E11.9 [place] [id number] [place] [address] 40362- 9044 Jan, Type 2 diabetes mellitus without complication E11.9 ; Numbness and tingling of both legs 782.0 ; Fibromyalgia M79.7 ; Hyperlipidemia E78.5 ; Lumbago M54.5 ; Cervicalgia M54.2 ; Hypertension I10 ; CAD (coronary artery disease) I25.10 ; Tobacco abuse Z72.0 ; Tobacco abuse counseling Z71.6 and GERD (gastroesophageal reflux disease) K21.9 [place] [id number] [place] [address] 96716- [address]873 Jan, [address] 65039- 4546 Dec, [facility] [address] [id number] Dec, Dental examination Z01.20 and Dental caries K02.[address] 27079- 6814 Dec, Edema R60.9 ; Type 2 diabetes mellitus without complication E11.9 ; Hypertension I10 and Mouth pain K13.[address] 24844- 2236 Dec, Degenerative disc disease, lumbar M51.[address] 88070- 2619 Dec, [address] 46296- 7002 Nov, Insomnia, unspecified G47.[address] 72492- 1869 Nov, Type 2 diabetes mellitus without complication E11.9 ; Lumbago M54.5 ; Degenerative disc disease, lumbar M51.36 ; Fibromyalgia M79.7 ; Coronary artery disease I25.10 ; Hyperlipidemia E78.5 ; Controlled substance agreement signed Z79.899 ; Dysuria R30.0 ; Insomnia, unspecified G47.00 ; GERD ( gastroesophageal reflux disease) K21.9 ; Hypertension 401.9 and 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 [address] [address]- 9769 Nov, [place] [address] 41709- 3061 Oct, Degenerative disc disease, lumbar M51.36 ; Cervicalgia M54.2 ; Insomnia, unspecified G47.00 ; Decreased GFR R94.4 and GERD ( gastroesophageal reflux disease) K21.9 [place] [address] 71145- 7546 Oct, Lumbago M54.5 [place] [address] 28102- 2569 Oct, Low back pain M54.5 [place] [address] 86336- 5465 Oct, [address] 34691- 7807 Oct, Disorientation R41.0 [place] [address] 60978- 5534 Oct, Type 2 diabetes mellitus without complication E11.9 ; Disorientation R41.0 and Chest pain R07.9 [place] [address] 45900- 0251 Oct, [place] [address] 34244- 7062 Sep, Low back pain M54.5 [place] [address] 83510- 0100 Sep, Insomnia, unspecified G47.[address] 22934- 2420 Aug, Degenerative disc disease, lumbar M51.36 ; Type 2 diabetes mellitus without complication E11.9 and Encounter for immunization Z23 [place] [address] 81318- 8458 Aug, [facility] [id number] [place] [address] 06805- 7218 Aug, [facility] [id number] [place] [address] 01071- 6667 Aug, [facility] [id number] [place] [address] 87862- 3036 Jul, [facility] [id number] [place] [address] 50999- 5912 Jun, [facility] [id number] [place] [address] 53245- 4331 Jun, Chest pain 786.50 and Lumbago 724.2 [facility] [id number] [place] [address] 19879- 2747 Jun, [facility] [id number] [place] [address] 63609- 6249 Jun, [facility] [address] [place] [id number] [place] [address] [id number] Jun, Dental examination V72.2 [facility] [id number] [place] [address] 41448- 4597 Jun, [facility] [id number] [place] [address] 40448- 2193 May, Left shoulder pain 719.41 and Numbness and tingling of both legs 782.0 [facility] [id number] [place] [address] 42532- 3403 May, Cough 786.2 ; Numbness and tingling of both legs 782.0 and Acute rhinitis 460 [facility] [address] [address] [id number] [place] [address] 09282- 3562 May, [facility] [id number] [place] [address] 54126- 7235 Apr, [facility] [id number] [place] [address] 37545- 1769 Apr, Bilateral lower extremity edema 782.3 ; Lumbago 724.2 and Insomnia 780.52 [facility] [address] [address]- 8651 Apr, [facility] [address] [address]- 8998 Apr, [facility] [id number] [place] [address] 32811- 2369 March, Seborrheic keratosis 702.19 and Skin lesion of face 709.9 [facility] [id number] [place] [address] 06497- 3614 March, [facility] [id number] [address]- 8342 March, [facility] [address] [address]- 6075 March, [facility] [address] [address]- 7774 March, [facility] [address] [address]- 2121 Feb, [facility] [address] [address]- 4928 Feb, [facility] [id number] [address]- 8489 Jan, [facility] [id number] [address]- 6335 Jan, [facility] [id number] [address]- 5943 Jan, [facility] [id number] 6066 Jan, [facility] [address] 8964 Jan, [facility] [place] [facility] [address] [id number] [place] [address]- 7540 16 Jan, 2015 [facility] [place] [facility] [address] [id number] [place] [address]- 2771 13 Jan, 2015 [facility] [place] [facility] [address] [id number] [place] [address]- 4147 13 Jan, 2015 [facility] [place] [facility] [address] [id number] [place] [address]- 0478 13 Jan, 2015 [facility] [place] [facility] [address] [id number] [place] [address]- 2869 13 Jan, 2015 [facility] [place] [facility] [address] [id number] [place] [address]- 8031 10 Jan, 2015 [facility] [place] [facility] [address] [id number] [place] [address]- 5641 27 Dec, 2014 [facility] [place] [facility] [address] [id number] [place] [address]- 9772 Dec, [facility] [place] [facility] [address] [id number] [place] [address]- 7222 Dec, [facility] [place] [facility] [address] [id number] [place] [address]- 9535 Dec, [facility] [place] [facility] [address] [facility] [id number] [place] [address]- 1311 Dec, [facility] [place] [facility] [address] [id number] [place] [address]- 9192 Dec, [facility] [place] [facility] [address] [id number] [place] [address]- 8187 Nov, [facility] [place] [facility] [address] [id number] [place] [address]- 6471 15 Nov, 2014 [facility] [place] [facility] [address] [id number] [place] [address]- 4127 14 Nov, 2014 [facility] [place] [facility] [address] [id number] [address]- 4509 14 Nov, 2014 [facility] [address] [id number] [place] [address]- 1338 Nov, [facility] [place] [facility] [address] [id number] [place] [address]- 2778 Nov, [facility] [place] [facility] [address] [facility] [id number] [place] [address]- 6236 Nov, [facility] [place] [facility] [address] [id number] [place] [address]- 5884 Nov, [facility] [place] [facility] [address] [id number] [place] [address]- 0931 Nov, [facility] [place] [facility] [address] [id number] [place] [address]- 9953 Nov, [facility] [address] [facility] [id number] [place] [address]- 6777 Nov, [facility] [place] [facility] [address] [id number] [place] [address]- 3557 Oct, [facility] [place] [facility] [address] [id number] [place] [address]- 6849 Oct, [facility] [place] [facility] [address] [facility] [id number] [place] [address]- 9832 Oct, [facility] [place] [facility] [address] [id number] [place] [address]- 0196 Oct, [facility] [place] [facility] [address] [id number] [place] [address] Oct, [facility] [place] [facility] [address] [id number] [place] [address] Oct, [facility] [place] [facility] [address] [facility] [id number] [place] [address] Oct, [facility] [place] [facility] [address] [facility] [id number] [place] [address] Oct, [facility] [place] [facility] [address] [id number] [place] [address] Oct, [facility] [place] [facility] [address] [id number] [place] [address] Oct, [facility] [place] [facility] [address] [id number] [place] [address] Sep, [facility] [place] [facility] [address] [id number] [place] [address] Sep, [facility] [place] [facility] [address] [id number] [place] [address] Sep, [facility] [place] [facility] [address] [id number] [place] [address] Sep, [facility] [place] [facility] [address] [id number] [place] [address] Sep, [facility] [place] [facility] [address] [id number] [place] [address] Sep, [facility] [place] [facility] [address] [id number] [place] [address] Sep, [facility] [place] [facility] [address] [id number] [place] [address] Sep, [facility] [place] [facility] [address] [id number] [place] [address] 17 Sep, 2014 [facility] [place] [facility] [address] [id number] [place] [address] 17 Sep, 2014 [facility] [place] [facility] [address] [id number] [place] [address] 13 Sep, 2014 [facility] [place] [facility] [address] [id number] [place] [address] Sep, [facility] [place] [facility] [address] [id number] [place] [address] Sep, [facility] [place] [facility] [address] [id number] [place] [address] Aug, [facility] [place] [facility] [address] [id number] [place] [address] Aug, [facility] [place] [facility] [address] [id number] [place] [address] Aug, [facility] [place] [facility] [address] [id number] [place] [address] Aug, [facility] [place] [facility] [address] [id number] [place] [address] Aug, [facility] [place] [facility] [address] [id number] [place] [address] Aug, [facility] [place] [facility] [address] [id number] [place] [address] Aug, [facility] [place] [facility] [address] [id number] [place] [address] Aug, [facility] [place] [facility] [address] [id number], [place] [address] Aug, [facility] [place] [facility] [address] [id number] [place] [address] Aug, [facility] [place] [facility] [address] [id number], [place] [address] Aug, [facility] [place] [facility] [address] [id number], [place] [address] Aug, [facility] [place] [facility] [address] [id number], [place] [address] Aug, [facility] [place] [facility] [address] [id number], [place] [address] Aug, [facility] [place] [facility] [address] [id number], [place] [address] Aug, [facility] [place] [facility] [address] [id number], [place] [address] Aug, [facility] [place] [facility] [address] [id number] [place] [address] 03 Aug, 2014 [facility] [address] [id number] [place] [address] 03 Aug, 2014 [facility] [place] [facility] [address] [id number] [place] [address] 30 Jul, 2013 [facility] [place] [facility] [address] [id number] [place] [address] 30 Jul, 2013 [facility] [place] [facility] [address] [id number] [place] [address] 24 Jul, 2013 [facility] [place] [facility] [address] [id number] [place] [address] 24 Jul, 2013 [facility] [place] [facility] [address] [id number] [place] [address] 23 Jul, 2013 [facility] [place] [facility] [address] [id number] [place] [address] 23 Jul, 2013 [facility] [place] [facility] [address] [id number] [place] [address] 15 Jul, 2013 [facility] [place] [facility] [address] [id number] [place] [address] 15 Jul, 2013 [facility] [place] [facility] [address] [facility] [id number] [place] [address] 15 Jul, 2013 [facility] [place] [facility] [address] [id number] [place] [address] 15 Jul, 2013 [facility] [place] [facility] [address] [id number], [place] [address] 11 Jul, 2013 [facility] [place] [facility] [address] [id number] [place] [address] 11 Jul, 2013 [facility] [place] [facility] [address] [facility] [id number], [place] [address] 11 Jul, 2013 [facility] [place] [facility] [address] [id number], [place] [address] Jul, IMMUNIZATIONS No Known Immunizations SOCIAL HISTORY Never Assessed REASON FOR VISIT pt c/o having trouble swallowing. She states that food is getting stuck. [employer], pt has spots on LT arm that showed up today, she also states that her LT hand has been numb since noon. [employer] PLAN OF CARE Activity Details Follow Up 3 Months, prn Reason:CHM/HTN w/ Tia Pending Test Barium Swallow VITAL SIGNS Height 60 in 2018-07-22 Weight 167.7 lbs 2018-07-22 Temperature 98.5 degrees Fahrenheit 2018-07-22 Heart Rate 76 bpm 2018-07-22 Respiratory Rate 18 2018-07-22 BMI 32.75 kg/m2 2018-07-22 Blood pressure systolic 98 mmHg 2018-07-22 Blood pressure diastolic 62 mmHg 2018-07-22 MEDICATIONS Medication Instructions Dosage Frequency Start Date End Date Duration Status Omeprazole 20 mg Orally Once a day TAKE ONE CAPSULE BY MOUTH ONCE DAILY 24h Active Humalog 100 UNIT/ML Active Norvasc 5 mg Orally Once a day TAKE 1 TABLET BY MOUTH ONCE A DAY 24h Active Atorvastatin Calcium 40 mg Orally Once a day 1 tablet 24h March, Active Aspirin 81 MG Orally Once a day 1 tablet 24h Active Percocet 10-325 MG Orally every 4- 6 hrs 1 tablet as needed Active Oxycodone HCl 10 mg Orally once a day 1 tablet as needed 24h Active Levemir FlexTouch 100 UNIT/ML INJECT 40 UNITS SUBCUTANEOUSLY once DAILY Active Gabapentin 800 MG TAKE ONE (1) TABLET BY MOUTH THREE (3) TIMES DAILY NEEDED 30 Active Benadryl Active Varenicline Tartrate 1 MG Orally Twice a day take 1/2 tab daily on days 1-3, then 1/2 tab twice daily on day 4-6, then 1 tablet twice daily 12h Nov, 30 day(s) Active Tradjenta 5 MG TAKE ONE TABLET BY MOUTH ONCE DAILY Active RESULTS No Results PROCEDURES Procedure Date Ordered Result Body Site VENIPUNCT, ROUTINE* Jul 22, 2018 [facility] VISIT ESTABLISHED PATIENT Jul 22, 2018 INSTRUCTIONS MEDICATIONS ADMINISTERED No Known Medications MEDICAL (GENERAL) HISTORY Type Description Date Medical History hearing loss Medical History hypertension Medical History acute renal failure Medical History hyperlipidemia Medical History type II diabetes Medical History Arthritis Medical History degenerative disease lumbosacral spine Medical History chronic pain r/t DDD Medical History fibromyalgia Medical History [place]stent [place] Surgical History cholecystectomy 1983 Surgical [...] illness, hyperglycemia 2017 Hospitalization History [facility]- High BS (Pt left AMA) 01/05/2018 Hospitalization History [facility]- DKA and UTI. Discharged 01/14/2018 Hospitalization History [facility]- Nausea and Vomiting, cannot urinate 01/18/2018
--- OUTSIDE RECORDS SUMMARY | 2018-08-30 10:19 | XMS REPORT ---
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 C Name Role Phone BURKSMARCELINO Rene Unavailable PROBLEMS Type Condition ICD9-CM Code PLG53-WB Code Onset Dates Condition Status SNOMED Code Problem Seasonal allergic rhinitis due to pollen J30.1 Active 06479917 Problem Arthritis M19.90 Active 0500511 Problem Primary insomnia F51.01 Active 7184263 Problem Dysphagia, unspecified type R13.10 Active 56758834 Problem Hyperlipidemia E78.5 Active 14453716 Problem Type 2 diabetes mellitus with hyperglycemia E11.65 Active [id number] Problem Degenerative disc disease, lumbar M51.36 Active 60320110 Problem Alterations of sensations R20.9 Active 005828015 Problem Body mass index (BMI) of 33.0-33.9 in adult Z68.33 Active 828216033 Problem Other obesity due to excess calories E66.09 Active 986073198 Problem Cervicalgia M54.2 Active 50188440 Problem Diabetic mononeuropathy associated with type 2 diabetes mellitus E11.41 Active 703740207 Problem senior care current use of insulin Z79.4 Active 585956439 Problem Essential hypertension I10 Active 09597271 Problem Fibromyalgia M79.7 Active 71217559 Problem GERD (gastroesophageal reflux disease) K21.9 Active 312912541 Problem Tobacco abuse counseling Z71.6 Active 213087326 Problem Chronic pain syndrome G89.4 Active 200736653 Problem CAD (coronary artery disease) I25.10 Active 89972491 Problem DM neuro manif type II E11.49 Active 91590128 Problem Vitamin D deficiency E55.9 Active 22489762 Problem Tobacco abuse Z72.0 Active 19144393 Problem Dental caries K02.9 Active 60563818 ALLERGIES No Information ENCOUNTERS Encounter Location Date Diagnosis [facility] [address] [facility] [id number] [address] Jul, [place] [address] [id number] [address] Jul, Elevated serum creatinine R79.89 [place] [address] [address] Jul, [place] [address] [place] [address] 52179- 4169 Jul, [place] [address] [place] [id number] [place] [address] 25226- 5138 Jul, [place] [address] [place] [address] 61427- 7913 Jun, DM neuro manif type II E11.49 ; Hyperlipidemia E78.5 ; GERD (gastroesophageal reflux disease) K21.9 ; Fibromyalgia M79.7 ; senior care current use of insulin Z79.4 ; Chronic pain syndrome G89.4 ; Primary insomnia F51.01 ; Seasonal allergic rhinitis due to pollen J30.1 ; Elevated serum creatinine R79.89 and Dysphagia, unspecified type R13.10 [place] [address] [place] [address] 82482- 4500 Apr, Type 2 diabetes mellitus with hyperglycemia E11.65 [place] [address] [place] [address] 93784- 6732 Apr, Hyperlipidemia E78.5 ; Chronic pain syndrome G89.4 ; Cervicalgia M54.2 ; DM neuro manif type II E11.49 ; 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 ; Nausea alone R11.0 ; Essential hypertension I10 ; GERD ( gastroesophageal reflux disease) K21.9 ; CAD (coronary artery disease) I25.10 and Diabetic mononeuropathy associated with type 2 diabetes mellitus E11.41 [place] [address] [place] [address] 70774- 9496 Apr, [address] [place] [address] 32204- 2550 March, Essential hypertension I10 ; DM neuro manif type II E11.49 and GERD (gastroesophageal reflux disease) K21.9 [place] [address] [place] [id number] [place] [address] 32249- 7042 March, DM neuro manif type II E11.49 and GERD (gastroesophageal reflux disease) K21.9 [facility] [address] [place] [id number] [place] [address] 93173- 4351 March, [place] [address] 22406- 2988 Feb, Tobacco abuse Z72.0 [place] [address] 41260- 6813 Feb, Tobacco abuse Z72.0 [place] [address] 78160- 6649 Feb, Hypokalemia E87.6 [place] [address] 50517- 4926 Feb, Hyperlipidemia E78.5 ; Essential hypertension I10 ; DM neuro manif type II E11.49 ; Fibromyalgia M79.7 ; Acute non-recurrent frontal sinusitis J01.10 ; Other obesity due to excess calories E66.09 and Body mass index (BMI) of 33.0-33.9 in adult Z68.33 [place] [address] [place] [id number] [place] [address] 67544- 8587 Jan, Dysuria R30.0 [place] [address] 77810- 5968 Jan, Dysuria R30.0 [place] [address] [place] [id number] [place] [address] 41142- 6340 Jan, Acute cystitis with hematuria N30.01 ; DM neuro manif type II E11.49 ; 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 ; Essential hypertension I10 and Hospital discharge follow-up Z09 [place] [address] [place] [id number] [place] [address] 51458- 9309 27 Dec, 2017 Chest pain, unspecified type R07.9 ; Dehydration E86.0 and Anuria R34 [place] [address] [place] [id number] [place] [address] 47194- 9263 Dec, [id number]- 8701 Dec, Hyperglycemia R73.9 ; Dehydration E86.0 and Acute cystitis with hematuria N30.01 [facility] [place] [address] 30700 -3910 Dec, [facility] [place] [address] 38688 -6057 Dec, [facility] [place] [address] 88355 -9945 Dec, [facility] IN [address] 15281 -8097 Dec, Dysuria R30.0 ; Acute cystitis with hematuria N30.01 and Weakness R53.1 [place] [address] 03484- 1546 Dec, [address] [address]00- 8955 Nov, [address] 36526- 5516 Nov, [address] 94621- 2406 Nov, Essential hypertension I10 ; DM neuro manif type II E11.49 ; 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 ; Tobacco abuse Z72.0 ; Hyperlipidemia E78.5 ; Non-adherence to medical treatment Z91.19 ; GERD (gastroesophageal reflux disease) K21.9 ; Degenerative disc disease, lumbar M51.36 ; Fibromyalgia M79.7 ; Chronic pain syndrome G89.4 ; Dental caries K02.9 and Seasonal allergic rhinitis due to pollen J30.1 [address] [place] [address]- 8984 Nov, Alterations of sensations R20.9 [facility] [address] 67601- 2107 Sep, DM neuro manif type II E11.49 ; Hyperlipidemia E78.5 ; Degenerative disc disease, lumbar M51.36 and Chronic pain syndrome G89.4 [place] [address] 05459- 6330 Sep, Arthritis M19.90 [facility] [address] 93518- 5655 Sep, Type 2 diabetes mellitus without complication E11.9 ; GERD ( gastroesophageal reflux disease) K21.9 ; Arthritis M19.90 and Chronic pain syndrome G89.4 [place] [address] 05700- 4213 Sep, [facility] [address] 45997- 3206 Aug, [facility] [address] [place] [id number] [place] [address] 53888- 2931 Aug, Type 2 diabetes mellitus without complication E11.9 [facility] [address] [place] [id number] [place] [address] 20497- 0489 Aug, [facility] [address] [place] [id number] [place] [address] 47738- 5394 Aug, [facility] [address] [place] [id number] [place] [address] 96170- 1608 Aug, [facility] [address] [place] [id number] [place] [address] 66169- 5807 Jul, [facility] [address] [place] [id number] [place] [address] 51959 -7115 22 Jul, 2017 Acute non-recurrent frontal sinusitis J01.10 [facility] [address] [place] [id number] [place] [address] 10304- 6258 20 Jul, 2017 CAD (coronary artery disease) I25.10 and GERD ( gastroesophageal reflux disease) K21.9 [place] [address] [place] [id number] [place] [address] 84760- 6514 14 Jul, 2017 Localized swelling, mass and lump, neck R22.1 [place] [address] [place] [id number] [place] [address] 49263- 8913 06 Jul, 2017 [place] [address] 37797- 8057 Jun, Type 2 diabetes mellitus without complication E11.9 ; Primary insomnia F51.01 ; Alterations of sensations R20.9 ; Hyperlipidemia E78.5 ; GERD (gastroesophageal reflux disease) K21.9 ; 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 I10 ; 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 ; Tobacco abuse Z72.0 ; Tobacco abuse counseling Z71.6 and CAD (coronary artery disease) I25.10 [place] [address] 53580- 4958 May, [place] [address] [place] [id number] [place] [address] 90773- 0543 May, Type 2 diabetes mellitus without complication E11.9 [place] [address] [place] [id number] [place] [address] 12690- 7394 May, [place] [address] [place] [id number] [place] [address] 27990- 7563 March, [place] [address] [place] [id number] [place] [address] 53693- 2021 Feb, [facility] [id number] [place] [address] 33220 -9924 Jan, Acute suppurative otitis media of left ear with spontaneous rupture of tympanic membrane, recurrence not specified H66.012 [place] [address] [place] [id number] [place] [address] 50667- 0085 17 Dec, 2016 Type 2 diabetes mellitus without complication E11.9 ; Lumbago M54.5 ; Cervicalgia M54.2 ; Hyperlipidemia E78.5 ; GERD ( gastroesophageal reflux disease) K21.9 ; Chronic pain syndrome G89.4 ; Dysuria R30.0 and Essential hypertension I10 [place] [address] 01951- 6569 Oct, [place] [address] 16931- 6981 30 Sep, 2016 Diabetic mononeuropathy associated with type 2 diabetes mellitus E11.41 and Coughing R05 [place] [address] 69626- 4767 Sep, Diabetic mononeuropathy associated with type 2 diabetes mellitus E11.41 and Coughing R05 [place] [address] 14857- 7132 18 Sep, 2016 Onychomycosis B35.1 ; Neuritis M79.2 and Type 2 diabetes mellitus without complication E11.9 [place] [address] 43665- 0161 14 Sep, 2016 [place] [address] 97157- 8028 Sep, Cough R05 ; Seasonal allergic rhinitis due to pollen J30.1 and Acute upper respiratory infection, unspecified J06.9 [place] [address] 73569- 3758 02 Sep, 2016 [place] [address] 35927- 6850 Aug, [place] [address] 90897- 7731 13 Jul, 2016 Type 2 diabetes mellitus without complication E11.9 ; Chronic pain G89.29 ; Essential hypertension I10 and Acute non-recurrent maxillary sinusitis J01.00 [place] [address] 47461- 4706 02 Jul, 2016 Chronic pain syndrome G89.4 ; Lumbago M54.5 and Cervicalgia M54.2 [place] [address] [place] [id number] [place] [address] 54358- 3634 Jul, [place] [address] 42116- 5181 Jul, [place] [address] 88574- 8573 Jun, Onychomycosis B35.1 ; Onychocryptosis L60.0 and DM neuro manif type II E11.49 [place] [id number] [place] [address] 82928- 3420 Jun, Type 2 diabetes mellitus without complication E11.9 ; Pain in unspecified hip M25.559 ; Other chronic pain G89.29 ; Lumbago M54.5 ; Chronic pain G89.29 ; Insomnia, unspecified G47.00 ; GERD (gastroesophageal reflux disease) K21.9 and Dental caries K02.[address] 89513- 4530 Jun, Type 2 diabetes mellitus without complication E11.9 ; Lumbago M54.5 ; Chronic pain G89.29 ; Insomnia, unspecified G47.00 ; GERD ( gastroesophageal reflux disease) K21.9 ; Dental caries K02.9 ; Pain in unspecified hip M25.559 and Other chronic pain G89.29 [place] [address] [place] [id number] [place] [address] 24660- 3264 May, [place] [address] [place] [id number] [place] [address] 01105- 5380 May, Type 2 diabetes mellitus without complication E11.9 ; Essential hypertension I10 ; Chronic pain syndrome G89.4 ; Other seasonal allergic rhinitis J30.2 and Insomnia, unspecified G47.00 [place] [address] [place] [id number] [place] [address] 38390- 0469 Apr, [place] [address] [place] [id number] [place] [address] 72252- 2848 Apr, Hypertension I10 and Chronic pain G89.29 [place] [address] [place] [id number] [place] [address] 32886- 9171 March, Onychomycosis B35.1 ; Onychocryptosis L60.0 and Type 2 diabetes mellitus without complication E11.9 [place] [id number] [place] [address] 48860- 3174 March, Type 2 diabetes mellitus without complication E11.9 ; Essential hypertension I10 ; Alterations of sensations R20.9 ; Chronic pain syndrome G89.4 ; Tobacco abuse Z72.0 and Tobacco abuse counseling Z71.[address] 20425- 4970 Feb, Cough R05 ; Type 2 diabetes mellitus without complication E11.9 ; Tobacco abuse counseling Z71.6 and Chronic pain G89.[address] 97567- 7187 Feb, [place] [id number] [place] [address] 74530- 8804 Feb, Type 2 diabetes mellitus without complication E11.9 ; Lumbago M54.5 ; Cervicalgia M54.2 ; Degenerative disc disease, lumbar M51.36 and Numbness and tingling of both legs 782.0 [facility] [address] [place] [id number] [place] [address] [id number] 24 Jan, 2016 Dental caries K02.9 and Encounter for dental examination Z01.20 [place] [id number] [place] [address] 95573- 9123 Jan, Type 2 diabetes mellitus without complication E11.[address] 22320- 2721 Jan, Type 2 diabetes mellitus without complication E11.9 ; Numbness and tingling of both legs 782.0 ; Fibromyalgia M79.7 ; Hyperlipidemia E78.5 ; Lumbago M54.5 ; Cervicalgia M54.2 ; Hypertension I10 ; CAD (coronary artery disease) I25.10 ; Tobacco abuse Z72.0 ; Tobacco abuse counseling Z71.6 and GERD (gastroesophageal reflux disease) K21.9 [place] [address] 66230- 0238 Jan, [facility] [address] 04239- 3219 Dec, [facility] [address] [id number] Dec, Dental examination Z01.20 and Dental caries K02.[address] 28601- 5442 Dec, Edema R60.9 ; Type 2 diabetes mellitus without complication E11.9 ; Hypertension I10 and Mouth pain K13.[address] 11234- 5131 Dec, Degenerative disc disease, lumbar M51.36 [place] [address] 84181- 2507 Dec, [address] 92690- 8531 Nov, Insomnia, unspecified G47.[address] 40402- 7147 Nov, Type 2 diabetes mellitus without complication E11.9 ; Lumbago M54.5 ; Degenerative disc disease, lumbar M51.36 ; Fibromyalgia M79.7 ; Coronary artery disease I25.10 ; Hyperlipidemia E78.5 ; Controlled substance agreement signed Z79.899 ; Dysuria R30.0 ; Insomnia, unspecified G47.00 ; GERD ( gastroesophageal reflux disease) K21.9 ; Hypertension 401.9 and senior care current use of insulin Z79.[address] 22163- 5757 Nov, [address] 00478- 4995 Oct, Degenerative disc disease, lumbar M51.36 ; Cervicalgia M54.2 ; Insomnia, unspecified G47.00 ; Decreased GFR R94.4 and GERD ( gastroesophageal reflux disease) K21.9 [facility] [address] 78408- 1691 Oct, Lumbago M54.5 [facility] [address] 06716- 9631 Oct, Low back pain M54.5 [place] [address] 84730- 1894 Oct, [place] [address] 36881- 9843 Oct, Disorientation R41.0 [place] [address] 06348- 7919 Oct, Type 2 diabetes mellitus without complication E11.9 ; Disorientation R41.0 and Chest pain R07.9 [place] [address] 61651- 8805 Oct, [place] [address] 47051- 9327 Sep, Low back pain M54.5 [place] [address] 01036- 0085 Sep, Insomnia, unspecified G47.00 [place] [address] 18358- 1562 Aug, Degenerative disc disease, lumbar M51.36 ; Type 2 diabetes mellitus without complication E11.9 and Encounter for immunization Z23 [place] [address] 43353- 9071 Aug, [place] [address] 24010- 7266 Aug, [place] [address] 38188- 4534 Aug, [facility] [address] [address]- 9005 Jul, [facility] [address] [place] [address] 23702- 8643 Jun, [facility] [address] [place] [id number] [place] [address] 55462- 1382 Jun, Chest pain 786.50 and Lumbago 724.2 [facility] [address] [place] [id number] [place] [address] 36780- 8951 Jun, [facility] [address] [place] [id number] [place] [address] 58439- 6892 Jun, [facility] [address] [place] [address] [id number] Jun, Dental examination V72.2 [facility] [address] [place] [id number] [place] [address] 09773- 6754 Jun, [facility] [address] [place] [id number] [place] [address] 56168- 4866 May, Left shoulder pain 719.41 and Numbness and tingling of both legs 782.0 [facility] [address] [place] [address] 96337- 5586 May, Cough 786.2 ; Numbness and tingling of both legs 782.0 and Acute rhinitis 460 [facility] [address] [place] [address] 75718- 5153 May, [facility] [address] [place] [address] 88536- 2215 Apr, [facility] [address] [place] [id number] [place] [address] 11315- 2341 Apr, Bilateral lower extremity edema 782.3 ; Lumbago 724.2 and Insomnia 780.52 [facility] [address] [place] [id number] [place] [address] 96833- 6468 Apr, [facility] [address] [facility] [facility] [place] [id number] [place] [address]- 8002 Apr, [facility] [address] [facility] [id number] 4060 March, Seborrheic keratosis 702.19 and Skin lesion of face 709.9 [facility] [address] [facility] [place] [id number] [place] [address]- 4506 March, [facility] [address] [facility] [place] [id number] [place] [address]- 8541 March, [facility] [address] [facility] [place] [id number] [place] [address]- 8140 March, [facility] [address] [facility] [place] [id number] [place] [address]- 9695 March, [facility] [address] [facility] [place] [id number] [place] [address]- 4729 Feb, [facility] [address] [facility] [place] [id number] [place] [address]- 4448 Feb, [facility] [address] [facility] [id number], [place] [address]- 2722 Jan, [facility] [address] [facility] [place] [id number] [place] [address]- 7772 Jan, [facility] [address] [facility] [place] [id number], [place] [address]- 5093 Jan, [facility] [address] [facility] [place] [id number]- 8815 Jan, [facility] [place] [facility] [address] [facility] [place] [id number] [place] 4956 Jan, [facility] [address] [facility] [place] [id number], [place] [address]- 5856 16 Jan, 2015 [facility] [address] [facility] [place] [id number], [place] [address]- 0831 13 Jan, 2015 [facility] [place] [facility] [address] [id number] [place] [address]- 6150 13 Jan, 2015 [facility] [place] [facility] [address] [id number] [place] [address]- 6353 13 Jan, 2015 [facility] [place] [facility] [address] [facility] [place] [id number] [place] [address]- 4710 Jan, [facility] [place] [facility] [address] [id number] [place] [address]- 3830 Jan, [facility] [place] [facility] [address] [id number] [place] [address]- 7478 Dec, [facility] [place] [facility] [address] [id number] [place] [address]- 1535 Dec, [facility] [place] [facility] [address] [id number] [place] [address]- 2672 Dec, [facility] [place] [facility] [address] [id number] [place] [address]- 1092 Dec, [facility] [place] [facility] [address] [id number] [place] [address]- 2508 Dec, [facility] [place] [facility] [address] [facility] [place] [place] [id number] [place] [address]- 0937 12 Dec, 2014 [facility] [place] [facility] [address] [id number], [place] [address]- 3351 15 Nov, 2014 [facility] [place] [facility] [address] [id number], [place] [address]- 3045 15 Nov, 2014 [facility] [place] [facility] [address] [id number] [place] [address]- 8886 14 Nov, 2014 [facility] [place] [facility] [address] [id number] [place] [address]- 5440 14 Nov, 2014 [facility] [place] [facility] [address] [facility] [place] [place] [id number] [place] [address]- 0507 13 Nov, 2014 [facility] [place] [facility] [address] [id number] [place] [address]- 8910 Nov, [facility] [place] [facility] [address] [id number] [place] [address]- 1682 Nov, [facility] [place] [facility] [address] [id number] [place] [address]- 7065 Nov, [facility] [place] [facility] [address] [id number] [place] [address] Nov, [facility] [place] [facility] [address] [id number] [place] [address] Nov, [facility] [place] [facility] [address] [id number] [place] [address] Nov, [facility] [place] [facility] [address] [id number] [place] [address] Oct, [facility] [place] [facility] [address] [id number] [place] [address] Oct, [facility] [place] [facility] [address] [id number] [place] [address] Oct, [facility] [place] [facility] [address] [id number] [place] [address] Oct, [facility] [place] [facility] [address] [id number] [place] [address] Oct, [facility] [place] [facility] [address] [id number] [place] [address] Oct, [facility] [place] [facility] [address] [id number] [place] [address] Oct, [facility] [place] [facility] [address] [id number] [place] [address] Oct, [facility] [place] [facility] [address] [id number] [place] [address] Oct, [facility] [place] [facility] [address] [id number] [place] [address] Oct, [facility] [place] [facility] [address] [id number] [place] [address] Sep, [facility] [place] [facility] [address] [id number] [place] [address] Sep, [facility] [place] [facility] [address] [id number] [place] [address] Sep, [facility] [place] [facility] [address] [id number] [place] [address] Sep, [facility] [place] [facility] [address] [id number] [place] [address] Sep, [facility] [place] [facility] [address] [id number] [place] [address]- [id number] Sep, [facility] [place] [facility] [address] [id number] [place] [address] Sep, [facility] [place] [facility] [address] [id number] [place] [address] Sep, [facility] [place] [facility] [address] [id number] [place] [address] Sep, [facility] [place] [facility] [address] [id number] [place] [address] Sep, [facility] [place] [facility] [address] [id number], [place] [address] Sep, [facility] [place] [facility] [address] [id number], [place] [address] Sep, [facility] [place] [facility] [address] [id number] [place] [address] Sep, [facility] [place] [facility] [address] [id number], [place] [address] Aug, [facility] [place] [facility] [address] [id number], [place] [address] Aug, [facility] [place] [facility] [address] [id number] [place] [address] Aug, 2013 [facility] [place] [facility] [address] [id number] [place] [address] Aug, 2013 [facility] [place] [facility] [address] [id number] [place] [address] Aug, 2013 [facility] [place] [facility] [address] [id number] [place] [address] Aug, 2013 [facility] [place] [facility] [address] [id number] [place] [address] Aug, [facility] [place] [facility] [address] [id number] [place] [address] Aug, [facility] [place] [facility] [address] [id number] [place] [address] Aug, [facility] [place] [facility] [address] [id number] [place] [address] Aug, [facility] [place] [facility] [address] [id number] [place] [address] Aug, [facility] [place] [facility] [address] [id number] [place] [address] Aug, [facility] [place] [facility] [address] [id number] [place] [address] Aug, [facility] [place] [facility] [address] [id number] [place] [address] Aug, [facility] [place] [facility] [address] [id number], [place] [address] Aug, 2013 [facility] [place] [facility] [address] [id number] [place] [address] Aug, [facility] [place] [facility] [address] [id number] [place] [address] Aug, 2013 [facility] [place] [facility] [address] [id number] [place] [address] 03 Aug, 2014 [facility] [place] [facility] [address] [facility] [id number], [place] [address] 30 Jul, 2014 [facility] [address] [facility] [place] [id number], [place] [address] 30 Jul, 2014 [facility] [address] [facility] [place] [id number], [place] [address] Jul, [facility] [address] [facility] [place] [id number], [place] [address] 24 Jul, 2014 [facility] [address] [facility] [place] [id number], [place] [address] Jul, [facility] [address] [facility] [place] [id number], [place] [address] Jul, [facility] [id number], [place] [address] Jul, [facility] [id number], [place] [address] Jul, [facility] [address], [place] [address] Jul, [facility] [id number], [place] [address] Jul, [facility] [id number], [place] [address] Jul, [facility] [id number], [place] [address] Jul, [facility] [address] [facility] [place] [id number], [place] [address] Jul, [facility] [id number], [place] [address] Jul, IMMUNIZATIONS No Known Immunizations SOCIAL HISTORY [...] Influenza illness, hyperglycemia 2017 Hospitalization History [facility]- High BS (Pt left AMA) 01/05/2018 Hospitalization History [facility]- DKA and UTI. Discharged 01/14/2018 Hospitalization History [facility]- Nausea and Vomiting, cannot urinate 01/18/2018
[2018-08-30] MEDS ORDERED: NS IV 1000 ML 1,000 ML IV SCH ×2 (11:15→12:45)
[2018-08-30] MEDS ORDERED: PROMETHAZINE INJ 25 MG/ML (PHENERGAN) AMP IVP ONE (11:15)
[2018-08-30] MEDS ORDERED: diphenhydrAMINE 50 MG/ML INJ (BENADRYL) IM ONE (11:15)
[2018-08-30] MEDS ORDERED: fentaNYL INJECTION 100 MCG/2 ML AMP IVP ONE (11:15)
--- NOTE | 2018-08-30 11:18 | ED General ---
General Chief Complaint: Glucose Problems Stated Complaint: ELEV BLOOD SUGAR Nursing Triage Note: AMB TO ROOM REPORTS HAS BEEN OUT OF INSULIN SINCE WEDNESDAY. BS IN IN 600 WITH VOMITING Nursing Sepsis Screen: No Definite Risk Source of Information: Patient Exam Limitations: No Limitations (ZELALEM LERNER) History of Present Illness Date Seen by Provider: Aug 30, 2018 Time Seen by Provider: 11:00 Initial Comments Patient is a 58-year-old female who presents to the emergency room with complaints of nausea, vomiting, and diarrhea for the past 5 days. She also reports that she's been out of insulin but her sugars have been in the 300s which is relatively normal for her but this morning they were in the 600s. She is in no distress in the emergency room, denies frequent urination or rapid breathing. She also complains of generalized pain due to not being able to keep any of her pain pills down. Timing/Duration: 4-5 Days Associated Systoms: Nausea/Vomiting (ZELALEM LERNER) Allergies and Home Medications Allergies Coded Allergies: ketorolac (Verified Allergy, Severe, ANAPHYLAXIS, PT TAKES ASA AT HOME, ) ondansetron (Verified Allergy, Intermediate, RASH, 07/19/14) RASH/ HIVES exenatide (Verified Allergy, Unknown, NAUSEA, 07/19/14) NON STOP VOMITING latex (Verified Allergy, Unknown, RASH, 07/19/14) metoclopramide (Verified Allergy, Unknown, RESTLESS LEGS, 07/19/14) Home Medications Amlodipine Besylate 10 Mg Tablet, 10 MG PO DAILY Prescribed by: TABATHA COVARRUBIAS on 08/04/18 1106 Aspirin 81 Mg Tablet.dr, 81 MG PO DAILY, (Reported) Atorvastatin Calcium 40 Mg Tablet, 40 MG PO HS, (Reported) Gabapentin 800 Mg Tablet, 1,600 MG PO HS, (Reported) TAKES 2 (800MG) TABLETS Gabapentin 800 Mg Tablet, 800 MG PO DAILY PRN for NERVE PAIN, (Reported) Insulin Detemir 100 Unit/1 Ml Insuln.pen, 40 UNITS SQ HS Prescribed by: TABATHA COVARRUBIAS on 07/31/18 1437 Insulin Lispro 100 Unit/1 Ml Insuln.pen, SQ AC, (Reported) SHE IS UNSURE OF HER SLIDING SCALE AND CAN NOT REMEMBER HOW MANY UNITS SHE TYPICALLY USES, SHE TESTS HER BLOOD SUGAR AND ENTERS HER CARBS AND HER METER TELLS HER HOW MANY UNITS OF INSULIN TO USE Linagliptin 5 Mg Tablet, 5 MG PO DAILY, (Reported) Omeprazole 20 Mg Capsule.dr, 20 MG PO DAILY, (Reported) Oxycodone HCl 10 Mg Tablet, 10 MG PO DAILY PRN for PAIN-SEVERE, (Reported) Oxycodone HCl/Acetaminophen 1 Each Tablet, 1 TAB PO Q4H PRN for PAIN-MODERATE, ( Reported) MAX OF 5 TABLETS PER DAY Promethazine HCl 25 Mg Supp.rect, 25 MG RC Q6H PRN for NAUSEA/VOMITING-2ND LINE, (Reported) Ranitidine HCl 150 Mg Tablet, 150 MG PO BID, (Reported) Patient Home Medication List Home Medication List Reviewed: Yes (ZELALEM LERNER) Review of Systems Review of Systems Constitutional: see HPI; No chills, No fever Gastrointestinal: see HPI, diarrhea, nausea, vomiting (ZELALEM LERNER) All Other Systems Reviewed Negative Unless Noted: Yes (ZELALEM LERNER) Past Ulqejnx-Ztvdyj-Spkuek Hx Past Med/Social Hx: Reviewed Nursing Past Med/Soc Hx (ZELALEM LERNER) Patient Social History Alcohol Use: Denies Use Number of Drinks Today: Alcohol Beverage of Choice: Wine Recreational Drug Use: No Smoking Status: Current Everyday Smoker Type Used: Cigarettes Former Smoker, Quit: Nov 23, 2017 2nd Hand Smoke Exposure: No Recent Foreign Travel: No Contact w/Someone Who Travel: No Recent Infectious Disease Expo: No Recent Hopitalizations: Yes (ZELALEM LERNER) Immunizations Up To Date Tetanus Booster (TDap): Unknown PED Vaccines UTD: No Date of Pneumonia Vaccine: Dec 12, 2013 Date of Influenza Vaccine: Sep 07, 2017 (ZELALEM LERNER) Seasonal Allergies Seasonal Allergies: Yes (ZELALEM LERNER) Past Medical History Surgeries: Yes Cardiac, Coronary Stent, Ear Surgery, Gallbladder, Orthopedic, Renal Respiratory: Yes (HX OF TOBACCO USE--1 PPD, REPORTEDLY QUIT 11/2017) Chronic Bronchitis, Sleep Apnea Currently Using CPAP: No Currently Using BIPAP: No Cardiac: Yes (CARDIAC STENTS; DVT'S IN ARMS) Chronic Edema/Swelling, Coronary Artery Disease, Deep Vein Thrombosis, High Cholesterol, Hypertension Neurological: Yes (NEUROPATHY IN HANDS AND FEET) Headaches /Migraines, Neuropathy 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 Disorders: No 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 Disorders: Denies 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 Sexually Transmitted Disease: No HIV/AIDS: No Genitourinary: Yes Bladder Infection, Kidney Stones, Renal Failure Gastrointestinal: Yes Gastroesophageal Reflux, Diverticulosis, Hiatal Hernia, Irritable Bowel Musculoskeletal: Yes Degenerate Disk Disease, Fibromyalgia, Chronic Back Pain Endocrine: Yes Diabetes, Insulin dep HEENT: Yes (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; POOR DENTITION) Chronic Ear Infection Loss of Vision: Denies Hearing Impairment: Hard of Hearing Cancer: No Psychosocial: Yes Anxiety Integumentary: Yes Psoriasis Blood Disorders: No Adverse Reaction/Blood Tranf: No (ZELALEM LERNER) Family Medical History Reviewed Nursing Family Hx (ZELALEM LERNER) Cancer of mouth 19 FATHER ( of esophogeal cancer.) Cardiovascular disease 19 MOTHER G8 BROTHER Completed stroke 19 FATHER G8 BROTHER Diabetes mellitus G8 BROTHER FH: lung cancer 19 MOTHER Hypertension 19 FATHER Kidney disease 19 FATHER Myocardial infarction 19 MOTHER G8 BROTHER Respiratory disorder No Family History of: AIDS No Pertinent Family Hx (ZELALEM LERNER) Physical Exam Vital Signs Vital Signs - First Documented 08/30/18 10:40 Temp 98.6 Pulse 91 Resp 18 B/P (MAP) 110/69 (83) Pulse Ox 98 O2 Delivery Room Air (LILA STUART) Vital Signs Capillary Refill : Less Than 3 Seconds (ZELALEM LERNER) Height, Weight, BMI Height: 5'0.00" Weight: 171lbs. 0.0oz. 77.430894ol; 31.3 BMI Method:Stated General Appearance: No Apparent Distress, WD/WN Eyes: Bilateral Eye Normal Inspection, Bilateral Eye PERRL, Bilateral Eye EOMI HEENT: PERRL/EOMI, TMs Normal, Normal ENT Inspection, Pharynx Normal Neck: Full Range of Motion, Normal Inspection, Non Tender, Supple, Carotid Bruit Respiratory: Chest Non Tender, Lungs Clear, Normal Breath Sounds, No Accessory Muscle Use, No Respiratory Distress Cardiovascular: Regular Rate, Rhythm, No Edema, No Gallop, No JVD, No Murmur, Normal Peripheral Pulses Gastrointestinal: Normal Bowel Sounds, No Organomegaly, No Pulsatile Mass, Non Tender, Soft Back: Normal Inspection, No CVA Tenderness, No Vertebral Tenderness Neurologic/Psychiatric: Alert, Oriented x3, Normal Mood/Affect Skin: Normal Color, Warm/Dry (ZELALEM LERNER) Progress/Results/Core Measures Suspected Sepsis Recent Fever Within 48 Hours: No Infection Criteria Present: None New/Unexplained Altered Menta: No Sepsis Screen: No Definite Risk SIRS Temperature:98.6 Pulse: 91 Respiratory Rate: 18 Laboratory Tests 08/30/18 11:11: White Blood Count 12.8H Blood Pressure 110 /69 Mean: 83 Laboratory Tests 08/30/18 11:11: Creatinine 1.46H, Platelet Count 306, Total Bilirubin 0.6 (ZELALEM LERNER) Results/Orders Lab Results Laboratory Tests Test 08/30/18 11:11 08/30/18 11:18 08/30/18 12:36 08/30/18 14:05 Range/Units White Blood Count 12.8 H 4.3-11.0 10^3/uL Red Blood Count 4.67 4.35-5.85 10^6/uL Hemoglobin 14.5 11.5-16.0 G/DL Hematocrit 41 35-52 % Mean Corpuscular Volume 88 80-99 FL Mean Corpuscular Hemoglobin 31 25-34 PG Mean Corpuscular Hemoglobin Concent 35 32-36 G/DL Red Cell Distribution Width 13.6 10.0-14.5 % Platelet Count 306 130-400 10^3/uL Mean Platelet Volume 10.6 H 7.4-10.4 FL Neutrophils (%) (Auto) 67 42-75 % Lymphocytes (%) (Auto) 24 12-44 % Monocytes (%) (Auto) 6 0-12 % Eosinophils (%) (Auto) 2 0-10 % Basophils (%) (Auto) 1 0-10 % Neutrophils # (Auto) 8.6 H 1.8-7.8 X 10^3 Lymphocytes # (Auto) 3.1 1.0-4.0 X 10^3 Monocytes # (Auto) 0.8 0.0-1.0 X 10^3 Eosinophils # (Auto) 0.2 0.0-0.3 10^3/uL Basophils # (Auto) 0.1 0.0-0.1 10^3/uL Sodium Level 130 L 135-145 MMOL/L Potassium Level 4.1 3.6-5.0 MMOL/L Chloride Level 95 L 98-107 MMOL/L Carbon Dioxide Level 22 21-32 MMOL/L Anion Gap 13 5-14 MMOL/L Blood Urea Nitrogen 14 7-18 MG/DL Creatinine 1.46 H 0.60-1.30 MG/DL Estimat Glomerular Filtration Rate 37 BUN/Creatinine Ratio 10 Glucose Level 735 *H 70-105 MG/DL Calcium Level 10.4 H 8.5-10.1 MG/DL Corrected Calcium 10.4 H 8.5-10.1 MG/DL Total Bilirubin 0.6 0.1-1.0 MG/DL Aspartate Amino Transf (AST/SGOT) 9 5-34 U/L Alanine Aminotransferase (ALT/SGPT) 10 0-55 U/L Alkaline Phosphatase 85 40-136 U/L Total Protein 7.2 6.4-8.2 GM/DL Albumin 4.0 3.2-4.5 GM/DL Amylase Level 27 25-125 U/L Lipase 27 8-78 U/L Urine Color YELLOW Urine Clarity CLEAR Urine pH 6 5-9 Urine Specific [place] 1.010 L 1.016-1.022 Urine Protein 3+ H NEGATIVE Urine Glucose (UA) 4+ H NEGATIVE Urine Ketones NEGATIVE NEGATIVE Urine Nitrite NEGATIVE NEGATIVE Urine Bilirubin NEGATIVE NEGATIVE Urine Urobilinogen NORMAL NORMAL MG/DL Urine Leukocyte Esterase 1+ H NEGATIVE Urine RBC (Auto) NEGATIVE NEGATIVE Urine RBC NONE /HPF Urine WBC 0-2 /HPF Urine Squamous Epithelial Cells 0-2 /HPF Urine Crystals NONE /LPF Urine Bacteria NEGATIVE /HPF Urine Casts NONE /LPF Urine Mucus NEGATIVE /LPF Urine Culture Indicated NO Glucometer 595 *H 448 *H 70-110 MG/DL (LILA STUART) My Orders Orders - LILA STUART Accucheck Stat ONCE (08/30/18 13:56) (LILA STUART) Medications Given in ED Current Medications Medications Dose Ordered Sig/Jackie Route Start Time Stop Time Status Last Admin Dose Admin Diphenhydramine HCl 25 mg ONCE ONCE IM 08/30/18 11:15 08/30/18 11:16 DC 08/30/18 11:28 25 MG Fentanyl Citrate 50 mcg ONCE ONCE IVP 08/30/18 11:15 08/30/18 11:16 DC 08/30/18 11:28 50 MCG Insulin Human Regular 10 unit ONCE ONCE IV 08/30/18 12:00 08/30/18 12:01 DC 08/30/18 12:07 10 UNIT Insulin Human Regular 20 unit ONCE ONCE SC 08/30/18 13:15 08/30/18 13:16 DC 08/30/18 13:26 20 UNIT Promethazine HCl 25 mg ONCE ONCE IVP 08/30/18 11:15 08/30/18 11:16 DC 08/30/18 11:29 25 MG (LILA STUART) Vital Signs/I&O 08/30/18 08/30/18 10:40 14:50 Temp 98.6 98.6 Pulse 91 70 Resp 18 16 B/P (MAP) 110/69 (83) 139/104 (116) Pulse Ox 98 98 O2 Delivery Room Air Room Air (LILA STUART) Vital Signs/I&O Capillary Refill : Less Than 3 Seconds (ZELALEM LERNER) Blood Pressure Mean: 83 Progress Note : Time: 14:00 (ZELALEM LERNER) Progress Note : Progress Note 1340 Assumed care of patient from Zelalem Lerner APRN. Patient reports to be feeling the same. 1400 Accucheck 448. Second liter of NS, approx 500 mls infused. Will allow this to finish and plan d/c. 1415 discharge instructions and return precautions reviewed with patient. All questions answered. (LILA STUART) Transfer of Care Transfer of Care Time: 13:40 Care transferred to: Lila Stuart APRN (ZELALEM LERNER) Departure Impression Primary Impression: Uncontrolled diabetes mellitus Qualified Codes: E11.65 - Type 2 diabetes mellitus with hyperglycemia Disposition: 01 HOME, SELF-CARE Condition: Stable/Unchanged Departure-Patient Inst. Decision time for Depature: 13:26 (ZELALEM LERNER) Referrals: WINDY GRIFFIN DO (PCP) Primary Care Physician MARCELINO BURKS APRN (Family) Primary Care Physician Patient Instructions: DIABETES Add. Discharge Instructions: Resume your home medications as previously prescribed. Get your prescription filled first thing tomorrow morning. Follow-up with [facility] within 1 week for recheck. Return back to the emergency room for any worsening symptoms or concerns as needed. All discharge instructions reviewed with patient and/or family. Voiced understanding. ZELALEM LERNER Aug 30, 2018 11:18 LILA STUART Aug 30, 2018 14:31
[2018-08-30 11:19] LABS: BASOPHILS # (AUTO) 0.1 10^3/uL (0.0-0.1); BASOPHILS % (AUTO) 1 % (0-10); EOSINOPHILS # (AUTO) 0.2 10^3/uL (0.0-0.3); EOSINOPHILS % (AUTO) 2 % (0-10); HEMATOCRIT 41 % (35-52); HEMOGLOBIN 14.5 G/DL (11.5-16.0); LYMPHOCYTES # (AUTO) 3.1 X 10^3 (1.0-4.0); LYMPHOCYTES % (AUTO) 24 % (12-44); MEAN CORPUSCULAR HEMOGLOBIN 31 PG (25-34); MEAN CORPUSCULAR HGB CONC 35 G/DL (32-36); MEAN CORPUSCULAR VOLUME 88 FL (80-99); MEAN PLATELET VOLUME 10.6 FL (7.4-10.4); MONOCYTES # (AUTO) 0.8 X 10^3 (0.0-1.0); MONOCYTES % (AUTO) 6 % (0-12); NEUTROPHILS # (AUTO) 8.6 X 10^3 (1.8-7.8); NEUTROPHILS % (AUTO) 67 % (42-75); PLATELET COUNT 306 10^3/uL (130-400); RED BLOOD COUNT 4.67 10^6/uL (4.35-5.85); RED CELL DISTRIBUTION WIDTH 13.6 % (10.0-14.5); WHITE BLOOD COUNT 12.8 10^3/uL (4.3-11.0)
[2018-08-30 11:25] LABS: BILIRUBIN,URINE NEGATIVE (NEGATIVE); CLARITY,URINE CLEAR; COLOR,URINE YELLOW; GLUCOSE, URINE (UA) 4+ (NEGATIVE); KETONES,URINE NEGATIVE (NEGATIVE); LEUKOCYTE ESTERASE ,URINE 1+ (NEGATIVE); NITRITE,URINE NEGATIVE (NEGATIVE); PH,URINE 6 (5-9); PROTEIN,URINE 3+ (NEGATIVE); UROBILINOGEN,URINE NORMAL (NORMAL)
[2018-08-30 11:37] LABS: BACTERIA,URINE NEGATIVE /HPF; SQUAMOUS EPITHELIAL CELL,UR 0-2 /HPF; WBC,URINE 0-2 /HPF
[2018-08-30 11:50] LABS: BILIRUBIN,TOTAL 0.6 MG/DL (0.1-1.0); CALCIUM 10.4 MG/DL (8.5-10.1); CREATININE SERUM 1.46 MG/DL (0.60-1.30); POTASSIUM 4.1 MMOL/L (3.6-5.0); TOTAL PROTEIN 7.2 GM/DL (6.4-8.2)
[2018-08-30] MEDS ORDERED: inSUlin (REGULAR) HUMAN 1 UNIT/0.01 ML (CHARGE PER UNIT) IV ONE (12:00)
[2018-08-30] MEDS ORDERED: inSUlin (REGULAR) HUMAN 1 UNIT/0.01 ML (CHARGE PER UNIT) SC ONE (13:15)
[2018-08-30 14:50] VITALS: BP 139/104
== END 2018-08-30 14:52 | disposition home or self-care (01) ==
LOC: EDUNIT# 10:05 → ER 10:07
DX: E11.65 Type 2 diabetes mellitus with hyperglycemia (principal); G47.30 Sleep apnea, unspecified; I25.10 Atherosclerotic heart disease of native coronary artery without angina pectoris; E78.00 Pure hypercholesterolemia, unspecified; F41.9 Anxiety disorder, unspecified; I10 Essential (primary) hypertension; E11.42 Type 2 diabetes mellitus with diabetic polyneuropathy; G43.909 Migraine, unspecified, not intractable, without status migrainosus; K21.9 Gastro-esophageal reflux disease without esophagitis; F17.210 Nicotine dependence, cigarettes, uncomplicated; Z88.4 Allergy status to anesthetic agent; Z80.0 Family history of malignant neoplasm of digestive organs; Z82.49 Family history of ischemic heart disease and other diseases of the circulatory system; Z80.1 Family history of malignant neoplasm of trachea, bronchus and lung; Z87.440 Personal history of urinary (tract) infections; Z87.19 Personal history of other diseases of the digestive system; Z95.5 Presence of coronary angioplasty implant and graft; Z98.890 Other specified postprocedural states; Z86.718 Personal history of other venous thrombosis and embolism; Z88.8 Allergy status to other drugs, medicaments and biological substances; Z91.040 Latex allergy status; Z91.14 Patient's other noncompliance with medication regimen; Z79.82 Long term (current) use of aspirin; Z79.4 Long term (current) use of insulin
CPT/HCPCS: 36415; 80053; 81000; 82150; 82962; 83690; 85025

== ENCOUNTER 2018-10-03 12:42 | Inpatient (IN) | payer MEDICARE ==
[~2018-10-03] VITALS: Ht 152.4 cm; Wt 73.3 kg
[2018-10-03] VITALS (10 sets, daily range): BP systolic 112–162; BP diastolic 53–98
--- OUTSIDE RECORDS SUMMARY | 2018-10-03 12:51 | XMS REPORT ---
Author Author WINDY GRIFFIN [facility] Address [address] [place] [address] Care Team Providers Care Commission Auditor Name Role Phone WINDY GRFIFIN Unavailable PROBLEMS Type Condition ICD9-CM Code TJD65-ZD Code Onset Dates Condition Status SNOMED Code Problem Seasonal allergic rhinitis due to pollen J30.1 Active 85814791 Problem Arthritis M19.90 Active 9845966 Problem Primary insomnia F51.01 Active 5693871 Problem Dysphagia, unspecified type R13.10 Active 02114774 Problem Hyperlipidemia E78.5 Active 24119679 Problem Type 2 diabetes mellitus with hyperglycemia E11.65 Active [id number] Problem Degenerative disc disease, lumbar M51.36 Active 48882120 Problem Alterations of sensations R20.9 Active 153298351 Problem Body mass index (BMI) of 33.0-33.9 in adult Z68.33 Active 487309481 Problem Other obesity due to excess calories E66.09 Active 311342643 Problem Cervicalgia M54.2 Active 19155781 Problem Diabetic mononeuropathy associated with type 2 diabetes mellitus E11.41 Active 483716941 Problem 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 Active 708248579 Problem Essential hypertension I10 Active 26816779 Problem Fibromyalgia M79.7 Active 64304870 Problem GERD (gastroesophageal reflux disease) K21.9 Active 549706680 Problem Tobacco abuse counseling Z71.6 Active 924846924 Problem Chronic pain syndrome G89.4 Active 114866976 Problem CAD (coronary artery disease) I25.10 Active 07353096 Problem DM neuro manif type II E11.49 Active 99391756 Problem Vitamin D deficiency E55.9 Active 79391939 Problem Tobacco abuse Z72.0 Active 00018100 Problem Dental caries K02.9 Active 15911099 ALLERGIES No Information ENCOUNTERS Encounter Location Date Diagnosis [facility] [address] [facility] [place] [id number] [address] Sep, [facility] [id number] [place] [address] 12254- 5423 Sep, [facility] [address] 05794- 9857 Sep, [facility] [id number] [place] [address] 34019- 0525 Sep, GERD (gastroesophageal reflux disease) K21.9 [facility] [address] 19147- 6698 Aug, [facility] [id number] [place] [address] 59892- 3880 Aug, DM neuro manif type II E11.49 [place] [id number] [place] [address] 72470- 0212 Aug, [facility] [address] 97962- 1675 Jul, [facility] [id number] [place] [address] 61130- 1925 24 Jul, 2018 Elevated serum creatinine R79.89 [place] [id number] [place] [address] 81634- 4639 17 Jul, 2018 [facility] [id number] [place] [address] 98222- 1252 14 Jul, 2018 [facility] [id number] [place] [address] 13644- 9122 06 Jul, 2018 [facility] [id number] [place] [address] 84849- 0260 Jun, DM neuro manif type II E11.49 ; Hyperlipidemia E78.5 ; GERD (gastroesophageal reflux disease) K21.9 ; Fibromyalgia M79.7 ; group home current use of insulin Z79.4 ; Chronic pain syndrome G89.4 ; Primary insomnia F51.01 ; Seasonal allergic rhinitis due to pollen J30.1 ; Elevated serum creatinine R79.89 and Dysphagia, unspecified type R13.10 [place] [id number] [place] [address] 93519- 2152 Apr, Type 2 diabetes mellitus with hyperglycemia E11.65 [place] [address] 79821- 6785 Apr, Hyperlipidemia E78.5 ; Chronic pain syndrome G89.4 ; Cervicalgia M54.2 ; DM neuro manif type II E11.49 ; group home current use of insulin Z79.4 ; Nausea alone R11.0 ; Essential hypertension I10 ; GERD ( gastroesophageal reflux disease) K21.9 ; CAD (coronary artery disease) I25.10 and Diabetic mononeuropathy associated with type 2 diabetes mellitus E11.41 [place] [address] 66473- 5243 Apr, [address] 49807- 2312 March, Essential hypertension I10 ; DM neuro manif type II E11.49 and GERD (gastroesophageal reflux disease) K21.9 [place] [address] 40424- 8156 March, DM neuro manif type II E11.49 and GERD (gastroesophageal reflux disease) K21.9 [place] [id number] [place] [address] 91834- 3943 March, [place] [id number] [place] [address] 62716- 7683 Feb, Tobacco abuse Z72.0 [place] [address] 56719- 2714 Feb, Tobacco abuse Z72.0 [place] [address] 91777- 6774 Feb, Hypokalemia E87.6 [place] [address] 86057- 3867 Feb, Hyperlipidemia E78.5 ; Essential hypertension I10 ; DM neuro manif type II E11.49 ; Fibromyalgia M79.7 ; Acute non-recurrent frontal sinusitis J01.10 ; Other obesity due to excess calories E66.09 and Body mass index (BMI) of 33.0-33.9 in adult Z68.33 [place] [address] 64960- 1102 05 Jan, 2018 Dysuria R30.0 [place] [address] 64038- 6804 Jan, Dysuria R30.0 [place] [address] 50523- 0277 Jan, Acute cystitis with hematuria N30.01 ; DM neuro manif type II E11.49 ; 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 [address] 74407 -6970 Dec, [facility] [address] 81350 -2846 Dec, [facility] [address] 33958 -2254 16 Dec, 2017 Dysuria R30.0 ; Acute cystitis with hematuria N30.01 and Weakness R53.1 [place] [id number] [place] [address] 15177- 3942 Dec, [place] [id number] [place] [address] 38346- 1672 Nov, [place] [id number] [place] [address] 77887- 0752 Nov, [place] [address] 49691- 0060 Nov, Essential hypertension I10 ; DM neuro manif type II E11.49 ; group home current use of insulin Z79.4 ; Tobacco abuse Z72.0 ; Hyperlipidemia E78.5 ; Non-adherence to medical treatment Z91.19 ; GERD (gastroesophageal reflux disease) K21.9 ; Degenerative disc disease, lumbar M51.36 ; Fibromyalgia M79.7 ; Chronic pain syndrome G89.4 ; Dental caries K02.9 and Seasonal allergic rhinitis due to pollen J30.[address] 76490- 2688 Nov, Alterations of sensations R20.9 [id number] [place] [address] 79538- 4256 Sep, DM neuro manif type II E11.49 ; Hyperlipidemia E78.5 ; Degenerative disc disease, lumbar M51.36 and Chronic pain syndrome G89.4 [id number] [place] [address] 49387- 7790 Sep, Arthritis M19.90 [address] [id number] [place] [address] 99860- 3941 Sep, Type 2 diabetes mellitus without complication E11.9 ; GERD ( gastroesophageal reflux disease) K21.9 ; Arthritis M19.90 and Chronic pain syndrome G89.4 [place] [id number] [place] [address] 08324- 4070 Sep, [place] [id number] [place] [address] 87235- 9689 Aug, [place] [address] [place] [address] 11949- 0127 18 Aug, 2017 Type 2 diabetes mellitus without complication E11.9 [facility] [id number] [place] [address] 04304- 1413 17 Aug, 2017 [facility] [id number] [place] [address] 10381- 9747 16 Aug, 2017 [facility] [address] 31117- 2534 16 Aug, 2017 [facility] [id number] [place] [address] 57087- 4846 26 Jul, 2017 [facility] [id number] [place] [address] 73919 -4412 22 Jul, 2017 Acute non-recurrent frontal sinusitis J01.10 [place] [address] 50295- 9301 20 Jul, 2017 CAD (coronary artery disease) I25.10 and GERD ( gastroesophageal reflux disease) K21.9 [place] [id number] [place] [address] 34437- 4280 14 Jul, 2017 Localized swelling, mass and lump, neck R22.1 [place] [id number] [place] [address] 64761- 5610 06 Jul, 2017 [place] [id number] [place] [address] 09998- 6602 15 Jun, 2017 Type 2 diabetes mellitus without complication E11.9 ; Primary insomnia F51.01 ; Alterations of sensations R20.9 ; Hyperlipidemia E78.5 ; GERD (gastroesophageal reflux disease) K21.9 ; Essential hypertension I10 ; group home current use of insulin Z79.4 ; Tobacco abuse Z72.0 ; Tobacco abuse counseling Z71.6 and CAD (coronary artery disease) I25.10 [place] [id number] [place] [address] 80275- 6826 May, [place] [address] [place] [address]- 5075 May, Type 2 diabetes mellitus without complication E11.9 [facility] [id number] [place] [address] 88862- 7678 May, [facility] [id number] [place] [address] 60459- 5155 March, [facility] [id number] [place] [address] 27306- 2781 Feb, [facility] [id number] [place] [address] 79532 -9685 Jan, Acute suppurative otitis media of left ear with spontaneous rupture of tympanic membrane, recurrence not specified H66.012 [place] [id number] [place] [address] 64365- 5996 17 Dec, 2016 Type 2 diabetes mellitus without complication E11.9 ; Lumbago M54.5 ; Cervicalgia M54.2 ; Hyperlipidemia E78.5 ; GERD ( gastroesophageal reflux disease) K21.9 ; Chronic pain syndrome G89.4 ; Dysuria R30.0 and Essential hypertension I10 [place] [id number] [place] [address] 54587- 1983 Oct, [place] [id number] [place] [address] 23728- 0402 30 Sep, 2016 Diabetic mononeuropathy associated with type 2 diabetes mellitus E11.41 and Coughing R05 [place] [id number] [place] [address] 13159- 7845 28 Sep, 2016 Diabetic mononeuropathy associated with type 2 diabetes mellitus E11.41 and Coughing R05 [place] [id number] [place] [address] 30654- 8356 Sep, Onychomycosis B35.1 ; Neuritis M79.2 and Type 2 diabetes mellitus without complication E11.9 [place] [id number] [place] [address] 92288- 7294 14 Sep, 2016 [place] [id number] [place] [address] 94920- 0895 03 Sep, 2016 Cough R05 ; Seasonal allergic rhinitis due to pollen J30.1 and Acute upper respiratory infection, unspecified J06.9 [place] [id number] [place] [address] 27232- 4274 Sep, [place] [id number] [place] [address] 30640- 0521 Aug, [place] [id number] [place] [address] 88240- 7998 13 Jul, 2016 Type 2 diabetes mellitus without complication E11.9 ; Chronic pain G89.29 ; Essential hypertension I10 and Acute non-recurrent maxillary sinusitis J01.00 [place] [id number] [place] [address] 67952- 8013 Jul, Chronic pain syndrome G89.4 ; Lumbago M54.5 and Cervicalgia M54.2 [place] [id number] [place] [address] 44164- 2355 Jul, [place] [address] 32627- 8067 Jul, [place] [id number] [place] [address] 99594- 5487 Jun, Onychomycosis B35.1 ; Onychocryptosis L60.0 and DM neuro manif type II E11.49 [place] [id number] [place] [address] 66686- 3765 Jun, Type 2 diabetes mellitus without complication E11.9 ; Pain in unspecified hip M25.559 ; Other chronic pain G89.29 ; Lumbago M54.5 ; Chronic pain G89.29 ; Insomnia, unspecified G47.00 ; GERD (gastroesophageal reflux disease) K21.9 and Dental caries K02.9 [address] [id number] [place] [address] 71969- 1967 Jun, Type 2 diabetes mellitus without complication E11.9 ; Lumbago M54.5 ; Chronic pain G89.29 ; Insomnia, unspecified G47.00 ; GERD ( gastroesophageal reflux disease) K21.9 ; Dental caries K02.9 ; Pain in unspecified hip M25.559 and Other chronic pain G89.29 [place] [id number] [place] [address] 72560- 5588 May, [address] 93171- 3146 May, Type 2 diabetes mellitus without complication E11.9 ; Essential hypertension I10 ; Chronic pain syndrome G89.4 ; Other seasonal allergic rhinitis J30.2 and Insomnia, unspecified G47.00 [id number] [place] [address] 12114- 4773 Apr, [address] 00374- 4631 Apr, Hypertension I10 and Chronic pain G89.29 [id number] [place] [address] 90732- 5332 March, Onychomycosis B35.1 ; Onychocryptosis L60.0 and Type 2 diabetes mellitus without complication E11.9 [id number] [place] [address] 51014- 3311 March, Type 2 diabetes mellitus without complication E11.9 ; Essential hypertension I10 ; Alterations of sensations R20.9 ; Chronic pain syndrome G89.4 ; Tobacco abuse Z72.0 and Tobacco abuse counseling Z71.6 [id number] [place] [address] 95599- 8862 Feb, Cough R05 ; Type 2 diabetes mellitus without complication E11.9 ; Tobacco abuse counseling Z71.6 and Chronic pain G89.29 [id number] [place] [address] 58840- 8867 Feb, [address] 92371- 6062 Feb, Type 2 diabetes mellitus without complication E11.9 ; Lumbago M54.5 ; Cervicalgia M54.2 ; Degenerative disc disease, lumbar M51.36 and Numbness and tingling of both legs 782.0 [facility] [id number] [place] [address] [id number] Jan, Dental caries K02.9 and Encounter for dental examination Z01.[address] 34635- 2491 Jan, Type 2 diabetes mellitus without complication E11.[address] 62300- 2270 Jan, Type 2 diabetes mellitus without complication E11.9 ; Numbness and tingling of both legs 782.0 ; Fibromyalgia M79.7 ; Hyperlipidemia E78.5 ; Lumbago M54.5 ; Cervicalgia M54.2 ; Hypertension I10 ; CAD (coronary artery disease) I25.10 ; Tobacco abuse Z72.0 ; Tobacco abuse counseling Z71.6 and GERD (gastroesophageal reflux disease) K21.[address] 82693- 9490 Jan, [place] [address] 40465- 1090 Dec, [facility] [id number] [place] [address] [id number] Dec, Dental examination Z01.20 and Dental caries K02.[address] 19757- 8136 Dec, Edema R60.9 ; Type 2 diabetes mellitus without complication E11.9 ; Hypertension I10 and Mouth pain K13.[address] 50052- 5208 16 Dec, 2015 Degenerative disc disease, lumbar M51.[address] 99306- 4655 Dec, [place] [id number] [place] [address] 01528- 3372 Nov, Insomnia, unspecified G47.00 [place] [address] 39890- 2021 Nov, Type 2 diabetes mellitus without complication E11.9 ; Lumbago M54.5 ; Degenerative disc disease, lumbar M51.36 ; Fibromyalgia M79.7 ; Coronary artery disease I25.10 ; Hyperlipidemia E78.5 ; Controlled substance agreement signed Z79.899 ; Dysuria R30.0 ; Insomnia, unspecified G47.00 ; GERD ( gastroesophageal reflux disease) K21.9 ; Hypertension 401.9 and 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 [place] [address] 02870- 8469 Nov, [address] 80702- 2214 Oct, Degenerative disc disease, lumbar M51.36 ; Cervicalgia M54.2 ; Insomnia, unspecified G47.00 ; Decreased GFR R94.4 and GERD ( gastroesophageal reflux disease) K21.9 [place] [address] 49568- 4657 Oct, Lumbago M54.5 [place] [address] 87751- 2970 Oct, Low back pain M54.5 [place] [address] 42982- 1963 Oct, [address] 30683- 7033 Oct, Disorientation R41.[address] 62244- 3307 Oct, Type 2 diabetes mellitus without complication E11.9 ; Disorientation R41.0 and Chest pain R07.9 [place] [address] [place] [address]- 9964 Oct, [facility] [id number] [place] [address] 57751- 9959 Sep, Low back pain M54.5 [facility] [id number] [place] [address] 89482- 0813 Sep, Insomnia, unspecified G47.00 [facility] [address] 01275- 0458 Aug, Degenerative disc disease, lumbar M51.36 ; Type 2 diabetes mellitus without complication E11.9 and Encounter for immunization Z23 [facility] [address] 26505- 9306 Aug, [facility] [address] 26947- 0770 Aug, [facility] [address] 18374- 4020 Aug, [facility] [id number] [place] [address] 39232- 9481 Jul, [facility] [id number] [place] [address] 54592- 3985 Jun, [facility] [id number] [place] [address] 63151- 3517 Jun, Chest pain 786.50 and Lumbago 724.2 [facility] [id number] [place] [address] 11976- 2508 Jun, [facility] [id number] [place] [address] 29224- 4845 Jun, [facility] [id number] [place] [address] [id number] Jun, Dental examination V72.2 [facility] [id number] [place] [address] 46303- 8672 Jun, [facility] [id number] [address]- 0465 May, Left shoulder pain 719.41 and Numbness and tingling of both legs 782.0 [facility] [id number] [place] [address] 64348- 9774 May, Cough 786.2 ; Numbness and tingling of both legs 782.0 and Acute rhinitis 460 [facility] [id number] [place] [address] 94277- 7296 May, [facility] [id number] [place] [address] 08248- 0633 Apr, [facility] [id number] [place] [address] 35177- 4028 Apr, Bilateral lower extremity edema 782.3 ; Lumbago 724.2 and Insomnia 780.52 [facility] [id number] [place] [address] 47808- 2736 Apr, [facility] [id number] [place] [address] 61697- 8716 Apr, [facility] [id number] [place] [address] 18217- 1639 March, Seborrheic keratosis 702.19 and Skin lesion of face 709.9 [facility] [id number] [place] [address] 47126- 0653 March, [facility] [id number] [place] [address] 75612- 2799 March, [facility] [id number] [place] [address] 10312- 7670 March, [facility] [id number] [place] [address] 21310157- 6368 March, [facility] [id number] [address]- 5587 Feb, [facility] [id number] [address]- 0237 13 Feb, 2014 [facility] [place] [facility] [address] [id number] [place] [address]- 0788 25 Jan, 2015 [facility] [place] [facility] [address] [id number] [place] [address]- 1417 25 Jan, 2015 [facility] [place] [facility] [address] [id number] [place] [address]- 7137 16 Jan, 2014 [facility] [place] [facility] [address] [id number] [place] [address]- 2007 16 Jan, 2015 [facility] [place] [facility] [address] [id number] [place] [address]- 9442 16 Jan, 2015 [facility] [place] [facility] [address] [id number] [place] [address]- 0530 16 Jan, 2014 [facility] [place] [facility] [address] [id number] [place] [address]- 6168 13 Jan, 2014 [facility] [place] [facility] [address] [id number] [place] [address]- 0116 13 Jan, 2015 [facility] [place] [facility] [address] [id number] [place] [address]- 8199 13 Jan, 2014 [facility] [place] [facility] [address] [id number] [place] [address]- 5225 13 Jan, 2015 [facility] [place] [facility] [address] [id number] [place] [address]- 0859 10 Jan, 2014 [facility] [place] [facility] [address] [id number] [place] [address]- 5555 27 Dec, 2014 [facility] [place] [facility] [address] [id number] [place] [address]- 5639 27 Dec, 2014 [facility] [place] [facility] [address] [id number] [place] [address]- 0896 26 Dec, 2014 [facility] [place] [facility] [address] [id number] [place] [address]- 6782 Dec, [facility] [place] [facility] [address] [id number] [place] [address]- 7675 Dec, [facility] [place] [facility] [address] [id number] [place] [address]- 8422 Dec, [facility] [place] [facility] [address] [facility] [id number] [place] [address]- 0792 Nov, [facility] [place] [facility] [address] [id number] [place] [address] Nov, [facility] [place] [facility] [address] [id number] [place] [address] Nov, [facility] [place] [facility] [address] [id number] [place] [address] Nov, [facility] [place] [facility] [address] [id number] [place] [address] Nov, [facility] [place] [facility] [address] [id number] [place] [address] Nov, [facility] [place] [facility] [address] [id number] [place] [address] Nov, [facility] [place] [facility] [address] [id number] [place] [address] Nov, [facility] [place] [facility] [address] [id number], [place] [address] Nov, [facility] [place] [facility] [address] [id number], [place] [address] Nov, [facility] [place] [facility] [address] [id number] [place] [address] Nov, [facility] [place] [facility] [address] [id number] [place] [address] Oct, [facility] [place] [facility] [address] [id number] [place] [address] Oct, [facility] [place] [facility] [address] [id number] [place] [address] Oct, [facility] [address] [id number] [place] [address] Oct, [facility] [place] [facility] [address] [id number] [place] [address] Oct, [facility] [address] [id number] [place] [address] Oct, [facility] [place] [facility] [address] [id number] [place] [address] Oct, [facility] [place] [facility] [address] [id number] [place] [address] Oct, [facility] [place] [facility] [address] [id number] [place] [address] Oct, [facility] [place] [facility] [address] [id number] [place] [address] Oct, [facility] [place] [facility] [address] [id number] [place] [address] Sep, [facility] [place] [facility] [address] [id number] [place] [address] Sep, [place] [facility] [place] [facility] [address] [facility] [id number] [place] [address] Sep, [facility] [place] [facility] [address] [id number] [place] [address] Sep, [facility] [place] [facility] [address] [id number] [place] [address] Sep, [facility] [place] [facility] [address] [id number] [place] [address] Sep, [facility] [place] [facility] [address] [facility] [id number] [place] [address] Sep, [facility] [place] [facility] [address] [id number] [place] [address] Sep, [facility] [place] [facility] [address] [id number] [place] [address] Sep, [facility] [place] [facility] [address] [id number] [place] [address] 17 Sep, 2014 [facility] [place] [facility] [address] [id number] [place] [address] Sep, [facility] [place] [facility] [address] [id number] [place] [address] Sep, [facility] [place] [facility] [address] [id number] [place] [address] Sep, [facility] [place] [facility] [address] [id number] [place] [address] Aug, [facility] [place] [facility] [address] [id number] [place] [address] Aug, [facility] [place] [facility] [address] [id number] [place] [address] Aug, [facility] [place] [facility] [address] [id number] [place] [address] Aug, [facility] [place] [facility] [address] [id number], [place] [address] Aug, [facility] [place] [facility] [address] [id number], [place] [address] Aug, [facility] [place] [facility] [address] [id number], [place] [address] Aug, [facility] [place] [facility] [address] [id number] [place] [address] Aug, [facility] [place] [facility] [address] [id number], [place] [address] Aug, [facility] [place] [facility] [address] [id number], [place] [address] Aug, [facility] [place] [facility] [address] [id number], [place] [address] Aug, [facility] [place] [facility] [address] [id number] [place] [address] Aug, [facility] [place] [facility] [address] [id number] [place] [address] Aug, [facility] [place] [facility] [address] [id number] [place] [address] Aug, [facility] [place] [facility] [address] [id number] [place] [address] Aug, [facility] [place] [facility] [address] [id number] [place] [address] Aug, [facility] [place] [facility] [address] [id number] [place] [address] Aug, [facility] [place] [facility] [address] [id number] [place] [address] Aug, [facility] [place] [facility] [address] [id number] [place] [address] 30 Jul, 2013 [facility] [place] [facility] [address] [id number] [place] [address] 30 Jul, 2013 [facility] [place] [facility] [address] [id number] [place] [address] 24 Sep, 2013 [facility] [place] [facility] [address] [id number] [place] [address] 24 Sep, 2013 [facility] [place] [facility] [address] [id number], [place] [address] 23 Sep, 2013 [facility] [place] [facility] [address] [id number] [place] [address] 23 Sep, 2013 [facility] [place] [facility] [address] [id number] [place] [address] 15 Jul, 2013 [facility] [place] [facility] [address] [id number] [place] [address] 15 Jul, 2013 [facility] [place] [facility] [address] [facility] [id number] [place] [address] Jul, [facility] [address] [facility] [id number], [place] [address] Jul, [facility] [address] [facility] [id number], [place] [address] Jul, [facility] [address] [facility] [id number], [place] [address] Jul, [facility] [address] [facility] [id number], [place] [address] Jul, [facility] [address] [facility] [id number], [place] [address] Jul, IMMUNIZATIONS No Known Immunizations SOCIAL HISTORY Never Assessed REASON FOR VISIT TCM call/med reconciliation PLAN OF CARE VITAL SIGNS MEDICATIONS Medication Instructions Dosage Frequency Start Date End Date Duration Status Amlodipine Besylate 10 MG Orally Once a day 1 tablet 24h 30 day(s) Active Protonix 40 MG Orally Once a day 1 tablet 24h 30 day(s) Active Aspirin 81 MG Orally Once a day 1 tablet 24h Active Oxycodone HCl 10 mg Orally once a day 1 tablet as needed 24h Active Humalog 100 UNIT/ML per sliding scale Active Benadryl Not-Taking Promethazine HCl 25 MG Rectal every 12 hrs 1 suppository as needed 12h 30 day(s) Active Levemir FlexTouch 100 UNIT/ML Subcutaneous Once a day 40 UNITS 24h Active Gabapentin 800 MG Orally at bedtime 2 tablets Active Omeprazole 20 mg Orally Once a day 1 capsule 24h Active Percocet 10-325 MG Orally every 4- 6 hrs 1 tablet as needed Active Diflucan 100 MG Orally Once a day 1 tablet 24h Sep, Sep, Active Tradjenta 5 MG TAKE ONE TABLET BY MOUTH ONCE DAILY Active Ranitidine HCl 150 MG Orally twice a day 1 tablet 12h Active Varenicline Tartrate 1 MG Orally Twice a day take 1/2 tab daily on days 1-3, then 1/2 tab twice daily on day 4-6, then 1 tablet twice daily 12h Nov, 30 day(s) Not-Taking Atorvastatin Calcium 40 mg Orally Once a day 1 tablet 24h March, Active Erythromycin Ethylsuccinate 400 MG as directed Active RESULTS No Results PROCEDURES No Known [...] Influenza illness, hyperglycemia 2017 Hospitalization History [facility] [place]- High BS (Pt left AMA) 01/05/2018 Hospitalization History [facility]- DKA and UTI. Discharged 01/14/2018 Hospitalization History ED [place]- Nausea and Vomiting, cannot urinate 01/18/2018
--- OUTSIDE RECORDS SUMMARY | 2018-10-03 12:51 | XMS REPORT ---
Author Author ANA M CRANE Organization [facility] Address [address] [place] [address] Care Team Providers Care Market Development Analyst Name Role Phone ANA M CRANE Unavailable PROBLEMS Type Condition ICD9-CM Code [id number] Code Onset Dates Condition Status SNOMED Code Problem Seasonal allergic rhinitis due to pollen J30.1 Active 18847250 Problem Arthritis M19.90 Active 8911312 Problem Primary insomnia F51.01 Active 4639413 Problem Dysphagia, unspecified type R13.10 Active 87804494 Problem Hyperlipidemia E78.5 Active 83243937 Problem Type 2 diabetes mellitus with hyperglycemia E11.65 Active [id number] Problem Degenerative disc disease, lumbar M51.36 Active 57894343 Problem Alterations of sensations R20.9 Active 405435181 Problem Body mass index (BMI) of 33.0-33.9 in adult Z68.33 Active 886238448 Problem Other obesity due to excess calories E66.09 Active 328708064 Problem Cervicalgia M54.2 Active 42565019 Problem Diabetic mononeuropathy associated with type 2 diabetes mellitus E11.41 Active 210408821 Problem penitentiary current use of insulin Z79.4 Active 059024210 Problem Essential hypertension I10 Active 46367042 Problem Fibromyalgia M79.7 Active 24208964 Problem GERD (gastroesophageal reflux disease) K21.9 Active 485123560 Problem Tobacco abuse counseling Z71.6 Active 775741307 Problem Chronic pain syndrome G89.4 Active 812276358 Problem CAD (coronary artery disease) I25.10 Active 77786570 Problem DM neuro manif type II E11.49 Active 67464241 Problem Vitamin D deficiency E55.9 Active 12616000 Problem Tobacco abuse Z72.0 Active 01127488 Problem Dental caries K02.9 Active 09403487 ALLERGIES No Information ENCOUNTERS Encounter Location Date Diagnosis [facility] [address] [facility] [id number] [address] Sep, [facility] [address] [place] [id number] [place] [address] 61089- 2711 Sep, [facility] [address] 55739- 8808 Sep, [facility] [id number] [place] [address] 65161- 1702 Sep, GERD (gastroesophageal reflux disease) K21.9 [facility] [address] 10731- 0883 Aug, [facility] [address] 17473- 3982 Aug, DM neuro manif type II E11.49 [facility] [id number] [place] [address] 79700- 9080 Aug, [facility] [address] 47676- 3142 Jul, [facility] [id number] [place] [address] 25899- 0247 Jul, Elevated serum creatinine R79.89 [facility] [id number] [place] [address] 99395- 5277 17 Jul, 2018 [facility] [id number] [place] [address] 44326- 4351 14 Jul, 2018 [facility] [id number] [place] [address] 31914- 0719 06 Jul, 2018 [facility] [id number] [place] [address] 82181- 0256 Jun, DM neuro manif type II E11.49 ; Hyperlipidemia E78.5 ; GERD (gastroesophageal reflux disease) K21.9 ; Fibromyalgia M79.7 ; 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 ; Chronic pain syndrome G89.4 ; Primary insomnia F51.01 ; Seasonal allergic rhinitis due to pollen J30.1 ; Elevated serum creatinine R79.89 and Dysphagia, unspecified type R13.10 [place] [id number] [place] [address] 84199- 7349 Apr, Type 2 diabetes mellitus with hyperglycemia E11.65 [place] [address] 94008- 3337 Apr, Hyperlipidemia E78.5 ; Chronic pain syndrome G89.4 ; Cervicalgia M54.2 ; DM neuro manif type II E11.49 ; penitentiary current use of insulin Z79.4 ; Nausea alone R11.0 ; Essential hypertension I10 ; GERD ( gastroesophageal reflux disease) K21.9 ; CAD (coronary artery disease) I25.10 and Diabetic mononeuropathy associated with type 2 diabetes mellitus E11.41 [place] [address] 10744- 3743 Apr, [place] [address] 60594- 0345 March, Essential hypertension I10 ; DM neuro manif type II E11.49 and GERD (gastroesophageal reflux disease) K21.9 [place] [address] 54421- 9825 March, DM neuro manif type II E11.49 and GERD (gastroesophageal reflux disease) K21.9 [place] [address] [id number] [place] [address] 63241- 9439 March, [place] [address] 20156- 1438 Feb, Tobacco abuse Z72.0 [place] [address] 83004- 9899 Feb, Tobacco abuse Z72.0 [place] [address] 52246- 9721 Feb, Hypokalemia E87.6 [place] [address] 68389- 0739 Feb, Hyperlipidemia E78.5 ; Essential hypertension I10 ; DM neuro manif type II E11.49 ; Fibromyalgia M79.7 ; Acute non-recurrent frontal sinusitis J01.10 ; Other obesity due to excess calories E66.09 and Body mass index (BMI) of 33.0-33.9 in adult Z68.33 [facility] [address] 43227- 3366 05 Jan, 2018 Dysuria R30.0 [place] [address] 22256- 9257 05 Jan, 2018 Dysuria R30.0 [place] [address] 90354- 9802 02 Jan, 2018 Acute cystitis with hematuria N30.01 ; DM neuro manif type II E11.49 ; penitentiary current use of insulin Z79.4 ; Essential hypertension I10 and Hospital discharge follow-up Z09 [place] [address] 03440- 3992 27 Dec, 2017 Chest pain, unspecified type R07.9 ; Dehydration E86.0 and Anuria R34 [place] [address] 04117- 7374 Dec, [place] [address] 82498- 8417 Dec, Hyperglycemia R73.9 ; Dehydration E86.0 and Acute cystitis with hematuria N30.01 [facility] [address] 28814 -9314 Dec, [facility] [address] 32076 -1612 Dec, [facility] [place] [address] 14257 -0374 Dec, [facility] [place] [address] 88665 -2675 16 Dec, 2017 Dysuria R30.0 ; Acute cystitis with hematuria N30.01 and Weakness R53.1 [place] [address] [place] [id number] [place] [address] 24943- 3433 Dec, [place] [address] 82086- 4821 Nov, [place] [address] [place] [id number] [place] [address] 92928- 1045 Nov, [place] [address] 74098- 5325 Nov, Essential hypertension I10 ; DM neuro manif type II E11.49 ; 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4 [place] [id number] [place] [address] 79817- 5706 Sep, Arthritis M19.[address] 66351- 9311 Sep, Type 2 diabetes mellitus without complication E11.9 ; GERD ( gastroesophageal reflux disease) K21.9 ; Arthritis M19.90 and Chronic pain syndrome G89.4 [place] [id number] [place] [address] 08536- 2781 Sep, [address] 11597- 0006 Aug, [facility] [id number] [place] [address] 04284- 7469 18 Aug, 2017 Type 2 diabetes mellitus without complication E11.9 [facility] [address] [place] [id number] [place] [address] 43085- 3367 Aug, [facility] [id number] [place] [address] 67020- 2498 Aug, [facility] [id number] [place] [address] 09980- 6864 Aug, [facility] [id number] [place] [address] 20817- 3894 Jul, [facility] [id number] [place] [address] 64526 -9411 22 Jul, 2017 Acute non-recurrent frontal sinusitis J01.10 [place] [address] [place] [id number] [place] [address] 40873- 6293 20 Jul, 2017 CAD (coronary artery disease) I25.10 and GERD ( gastroesophageal reflux disease) K21.9 [place] [id number] [place] [address] 65743- 2079 14 Jul, 2017 Localized swelling, mass and lump, neck R22.1 [place] [address] [place] [id number] [place] [address] 83563- 9069 06 Jul, 2017 [place] [id number] [place] [address] 59986- 9088 Jun, Type 2 diabetes mellitus without complication E11.9 ; Primary insomnia F51.01 ; Alterations of sensations R20.9 ; Hyperlipidemia E78.5 ; GERD (gastroesophageal reflux disease) K21.9 ; Essential hypertension I10 ; penitentiary current use of insulin Z79.4 ; Tobacco abuse Z72.0 ; Tobacco abuse counseling Z71.6 and CAD (coronary artery disease) I25.10 [place] [id number] [place] [address] 02527- 8408 May, [place] [address] [place] [id number] [place] [address] 06076- 7600 May, Type 2 diabetes mellitus without complication E11.9 [place] [address] [id number] [place] [address] 79034- 5216 May, [place] [address] [place] [id number] [place] [address] 80805- 1904 March, [facility] [address] 02362- 5166 Feb, [facility] [id number] [place] [address] 53010 -2400 Jan, Acute suppurative otitis media of left ear with spontaneous rupture of tympanic membrane, recurrence not specified H66.012 [place] [id number] [place] [address] 50838- 1449 17 Dec, 2016 Type 2 diabetes mellitus without complication E11.9 ; Lumbago M54.5 ; Cervicalgia M54.2 ; Hyperlipidemia E78.5 ; GERD ( gastroesophageal reflux disease) K21.9 ; Chronic pain syndrome G89.4 ; Dysuria R30.0 and Essential hypertension I10 [place] [address] [id number] [place] [address] 79750- 5905 Oct, [place] [address] [id number] [place] [address] 92312- 7004 30 Sep, 2016 Diabetic mononeuropathy associated with type 2 diabetes mellitus E11.41 and Coughing R05 [place] [id number] [place] [address] 48221- 9499 28 Sep, 2016 Diabetic mononeuropathy associated with type 2 diabetes mellitus E11.41 and Coughing R05 [place] [address] [id number] [place] [address] 20317- 3609 Sep, Onychomycosis B35.1 ; Neuritis M79.2 and Type 2 diabetes mellitus without complication E11.9 [place] [address] [id number] [place] [address] 37408- 6909 Sep, [place] [address] [place] [id number] [place] [address] 37763- 2037 03 Sep, 2016 Cough R05 ; Seasonal allergic rhinitis due to pollen J30.1 and Acute upper respiratory infection, unspecified J06.9 [place] [id number] [place] [address] 39294- 7647 Sep, [place] [address] 19229- 0810 Aug, [place] [address] [place] [id number] [place] [address] 84786- 8686 13 Jul, 2016 Type 2 diabetes mellitus without complication E11.9 ; Chronic pain G89.29 ; Essential hypertension I10 and Acute non-recurrent maxillary sinusitis J01.00 [place] [address] 04448- 3246 Jul, Chronic pain syndrome G89.4 ; Lumbago M54.5 and Cervicalgia M54.2 [place] [address] [id number] [place] [address] 33078- 5748 Jul, [place] [address] 61622- 2909 Jul, [place] [address] [place] [id number] [place] [address] 92129- 9376 Jun, Onychomycosis B35.1 ; Onychocryptosis L60.0 and DM neuro manif type II E11.49 [place] [address] [id number] [place] [address] 36257- 0575 Jun, Type 2 diabetes mellitus without complication E11.9 ; Pain in unspecified hip M25.559 ; Other chronic pain G89.29 ; Lumbago M54.5 ; Chronic pain G89.29 ; Insomnia, unspecified G47.00 ; GERD (gastroesophageal reflux disease) K21.9 and Dental caries K02.9 [place] [address] [place] [id number] [place] [address] 45144- 8148 Jun, Type 2 diabetes mellitus without complication E11.9 ; Lumbago M54.5 ; Chronic pain G89.29 ; Insomnia, unspecified G47.00 ; GERD ( gastroesophageal reflux disease) K21.9 ; Dental caries K02.9 ; Pain in unspecified hip M25.559 and Other chronic pain G89.29 [place] [address] [id number] [place] [address] 53415- 9334 May, [place] [address] 13526- 6702 May, Type 2 diabetes mellitus without complication E11.9 ; Essential hypertension I10 ; Chronic pain syndrome G89.4 ; Other seasonal allergic rhinitis J30.2 and Insomnia, unspecified G47.00 [place] [address] [place] [id number] [place] [address] 28194- 1394 Apr, [address] 44198- 6903 Apr, Hypertension I10 and Chronic pain G89.29 [place] [address] 74935- 0346 March, Onychomycosis B35.1 ; Onychocryptosis L60.0 and Type 2 diabetes mellitus without complication E11.9 [place] [id number] [place] [address] 05280- 4733 March, Type 2 diabetes mellitus without complication E11.9 ; Essential hypertension I10 ; Alterations of sensations R20.9 ; Chronic pain syndrome G89.4 ; Tobacco abuse Z72.0 and Tobacco abuse counseling Z71.6 [place] [id number] [place] [address] 56869- 5529 Feb, Cough R05 ; Type 2 diabetes mellitus without complication E11.9 ; Tobacco abuse counseling Z71.6 and Chronic pain G89.29 [place] [id number] [place] [address] 26574- 1083 Feb, [address] 16809- 5743 Feb, Type 2 diabetes mellitus without complication E11.9 ; Lumbago M54.5 ; Cervicalgia M54.2 ; Degenerative disc disease, lumbar M51.36 and Numbness and tingling of both legs 782.0 [facility] [address] [place] [address] [id number] Jan, Dental caries K02.9 and Encounter for dental examination Z01.20 [place] [address] [place] [id number] [place] [address] 87648- 2387 Jan, Type 2 diabetes mellitus without complication E11.[address] 19337- 8332 Jan, Type 2 diabetes mellitus without complication E11.9 ; Numbness and tingling of both legs 782.0 ; Fibromyalgia M79.7 ; Hyperlipidemia E78.5 ; Lumbago M54.5 ; Cervicalgia M54.2 ; Hypertension I10 ; CAD (coronary artery disease) I25.10 ; Tobacco abuse Z72.0 ; Tobacco abuse counseling Z71.6 and GERD (gastroesophageal reflux disease) K21.9 [place] [id number] [place] [address] 24111- 8741 Jan, [place] [address] [place] [id number] [place] [address] 95157- 3553 Dec, [facility] [address] [id number] [place] [address] [id number] Dec, Dental examination Z01.20 and Dental caries K02.9 [place] [address] [place] [id number] [place] [address] 58030- 8628 Dec, Edema R60.9 ; Type 2 diabetes mellitus without complication E11.9 ; Hypertension I10 and Mouth pain K13.79 [place] [address] [place] [id number] [place] [address] 26497- 4309 Dec, Degenerative disc disease, lumbar M51.36 [place] [address] 56824- 8048 Dec, [place] [address] [place] [id number] [place] [address] 39645- 7585 Nov, Insomnia, unspecified G47.00 [place] [address] [place] [id number] [place] [address] 28391- 4951 Nov, Type 2 diabetes mellitus without complication E11.9 ; Lumbago M54.5 ; Degenerative disc disease, lumbar M51.36 ; Fibromyalgia M79.7 ; Coronary artery disease I25.10 ; Hyperlipidemia E78.5 ; Controlled substance agreement signed Z79.899 ; Dysuria R30.0 ; Insomnia, unspecified G47.00 ; GERD ( gastroesophageal reflux disease) K21.9 ; Hypertension 401.9 and penitentiary current use of insulin Z79.4 [place] [address] [place] [id number] [place] [address] 38927- 2642 Nov, [address] 50479- 2192 Oct, Degenerative disc disease, lumbar M51.36 ; Cervicalgia M54.2 ; Insomnia, unspecified G47.00 ; Decreased GFR R94.4 and GERD ( gastroesophageal reflux disease) K21.9 [place] [address] [id number] [place] [address] 23092- 8230 Oct, Lumbago M54.5 [place] [address] [place] [id number] [place] [address] 60487- 3612 Oct, Low back pain M54.5 [place] [address] [place] [id number] [place] [address] 88592- 7305 Oct, [address] 59593- 9957 Oct, Disorientation R41.0 [place] [id number] [place] [address] 89190- 8686 Oct, Type 2 diabetes mellitus without complication E11.9 ; Disorientation R41.0 and Chest pain R07.[id number] [place] [address] 80160- 5014 Oct, [facility] [id number] [place] [address] 45103- 6961 Sep, Low back pain M54.5 [facility] [id number] [place] [address] 03562- 7052 Sep, Insomnia, unspecified G47.00 [facility] [id number] [place] [address] 02197- 5498 Aug, Degenerative disc disease, lumbar M51.36 ; Type 2 diabetes mellitus without complication E11.9 and Encounter for immunization Z23 [facility] [id number] [place] [address] 20261- 3455 Aug, [facility] [id number] [place] [address] 16101- 0827 Aug, [facility] [id number] [place] [address] 34420- 6088 Aug, [facility] [id number] [place] [address] 72886- 6695 Jul, [facility] [id number] [place] [address] 66305- 6626 Jun, [facility] [id number] [place] [address] 83257- 0057 Jun, Chest pain 786.50 and Lumbago 724.2 [facility] [id number] [place] [address] 16147- 2083 Jun, [facility] [id number] [place] [address] 69796- 8424 Jun, [facility] [id number] [place] [address] [id number] Jun, Dental examination V72.2 [facility] [id number] [place] [address] 74234- 8314 Jun, [facility] [address] [address]- 3979 May, Left shoulder pain 719.41 and Numbness and tingling of both legs 782.0 [facility] [id number] [place] [address] 23528- 8271 May, Cough 786.2 ; Numbness and tingling of both legs 782.0 and Acute rhinitis 460 [facility] [id number] [place] [address] 57224- 3286 May, [facility] [id number] [place] [address] 00630- 1062 Apr, [facility] [id number] [place] [address] 97456- 1581 Apr, Bilateral lower extremity edema 782.3 ; Lumbago 724.2 and Insomnia 780.52 [facility] [id number] [place] [address] 21344- 7827 Apr, [facility] [address] [id number] [place] [address] 56961- 8986 Apr, [facility] [id number] [place] [address] 64903- 7020 March, Seborrheic keratosis 702.19 and Skin lesion of face 709.9 [facility] [id number] [place] [address] 98546- 0077 March, [facility] [id number] [place] [address] 36765- 9605 March, [facility] [id number] [place] [address] 05861- 0275 March, [facility] [id number] [place] [address] [id number]- 7369 March, [facility] [id number] [place] [address] 14742- 5869 Feb, [facility] [place] [facility] [address] [id number] [place] [address]- 3963 13 Feb, 2015 [facility] [place] [facility] [address] [id number] [place] [address]- 2974 25 Jan, 2015 [facility] [place] [facility] [address] [id number] [place] [address]- 5319 25 Jan, 2015 [facility] [place] [facility] [address] [id number] [place] [address]- 4285 16 Jan, 2015 [facility] [place] [facility] [address] [id number] [place] [address]- 1296 16 Jan, 2015 [facility] [place] [facility] [address] [id number] [place] [address]- 8414 16 Jan, 2015 [facility] [place] [facility] [address] [id number] [place] [address]- 6795 16 Jan, 2015 [facility] [place] [facility] [address] [id number] [place] [address]- 6937 13 Jan, 2015 [facility] [place] [facility] [address] [id number] [place] [address]- 8542 13 Jan, 2015 [facility] [place] [facility] [address] [id number] [place] [address]- 0921 Jan, [facility] [place] [facility] [address] [id number] [place] [address]- 6719 Jan, [facility] [place] [facility] [address] [id number] [place] [address]- 6605 10 Jan, 2015 [facility] [place] [facility] [address] [id number] [place] [address]- 7369 27 Dec, 2014 [facility] [place] [facility] [address] [id number] [place] [address]- 1704 Dec, [facility] [place] [facility] [address] [id number] [place] [address] 26 Dec, 2014 [facility] [place] [facility] [address] [id number], [place] [address] Dec, [facility] [address] [id number] [place] [address] Dec, [facility] [place] [facility] [address] [id number] [place] [address] Dec, [facility] [place] [facility] [address] [id number] [place] [address] Nov, [facility] [place] [facility] [address] [id number] [place] [address] Nov, [facility] [place] [facility] [address] [id number] [place] [address] Nov, [facility] [place] [facility] [address] [id number] [place] [address] Nov, [facility] [place] [facility] [address] [id number] [place] [address] Nov, [facility] [place] [facility] [address] [id number] [place] [address] Nov, [facility] [place] [facility] [address] [id number] [place] [address] Nov, [facility] [place] [facility] [address] [facility] [id number] [place] [address] Nov, [facility] [place] [facility] [address] [id number] [place] [address] Nov, [facility] [place] [facility] [address] [id number], [place] [address] Nov, [facility] [place] [facility] [address] [id number] [place] [address] Nov, [facility] [place] [facility] [address] [id number] [place] [address] Oct, [facility] [place] [facility] [address] [id number] [place] [address] Oct, [facility] [place] [facility] [address] [id number] [place] [address] Oct, [facility] [place] [facility] [address] [id number] [place] [address] Oct, [facility] [place] [facility] [address] [id number] [place] [address] Oct, [facility] [place] [facility] [address] [id number] [place] [address] Oct, [facility] [place] [facility] [address] [id number] [place] [address] Oct, [facility] [place] [facility] [address] [id number] [place] [address] Oct, [facility] [place] [facility] [address] [id number] [place] [address] Oct, [facility] [place] [facility] [address] [id number] [place] [address] Oct, [facility] [place] [facility] [address] [id number] [place] [address] Sep, [facility] [place] [facility] [address] [id number] [place] [address] Sep, [facility] [place] [facility] [address] [id number] [place] [address] Sep, [facility] [place] [facility] [address] [id number] [place] [address] Sep, [facility] [place] [facility] [address] [id number] [place] [address] Sep, [facility] [place] [facility] [address] [id number] [place] [address] Sep, [facility] [place] [facility] [address] [id number] [place] [address] Sep, [facility] [place] [facility] [address] [id number] [place] [address] Sep, [facility] [place] [facility] [address] [id number] [place] [address] Sep, [facility] [place] [facility] [address] [id number] [place] [address] Sep, [facility] [place] [facility] [address] [id number] [place] [address] Sep, [facility] [place] [facility] [address] [id number] [place] [address] Sep, [facility] [place] [facility] [address] [id number] [place] [address] Sep, [facility] [place] [facility] [address] [id number] [place] [address] Aug, [facility] [place] [facility] [address] [id number] [place] [address] Aug, [facility] [place] [facility] [address] [id number], [place] [address] Aug, [facility] [place] [facility] [address] [id number] [place] [address] Aug, [facility] [place] [facility] [address] [id number] [place] [address] Aug, [facility] [place] [facility] [address] [id number], [place] [address] 30 Aug, 2014 [facility] [place] [facility] [address] [id number], [place] [address] Aug, [facility] [place] [facility] [address] [id number] [place] [address] 24 Aug, 2014 [facility] [place] [facility] [address] [id number], [place] [address] Aug, [facility] [place] [facility] [address] [id number], [place] [address] Aug, [facility] [place] [facility] [address] [id number] [place] [address]- [address] Aug, [facility] [place] [facility] [address] [id number] [place] [address] Aug, [facility] [place] [facility] [address] [id number] [place] [address]- [address] Aug, [facility] [place] [facility] [address] [id number] [place] [address]- [address] Aug, [facility] [place] [facility] [address] [id number] [place] [address] Aug, [facility] [place] [facility] [address] [id number] [place] [address]- [address] Aug, [facility] [place] [facility] [address] [id number] [place] [address] Aug, [facility] [place] [facility] [address] [id number] [place] [address] Aug, [facility] [place] [facility] [address] [id number] [place] [address]- [address] 30 Sep, 2013 [facility] [place] [facility] [address] [id number] [place] [address] 30 Sep, 2013 [facility] [place] [facility] [address] [id number] [place] [address]- [address] 24 Sep, 2013 [facility] [place] [facility] [address] [id number] [place] [address]- [address] 24 Sep, 2013 [facility] [place] [facility] [address] [id number] [place] [address]- [address] 23 Sep, 2013 [facility] [place] [facility] [address] [id number] [place] [address] 23 Sep, 2013 [facility] [place] [facility] [address] [id number] [place] [address]- [address] 15 Sep, 2013 [facility] [place] [facility] [address] [id number] [place] [address] 15 Jul, 2014 [facility] [address] [facility] [id number], [place] [address] Jul, [facility] [address] [facility] [id number], [place] [address] Jul, [facility] [address] [id number], [place] [address] Jul, [facility] [address] [id number], [place] [address] Jul, [facility] [address] [facility] [id number], [place] [address] Jul, [facility] [address] [id number], [place] [address] Jul, IMMUNIZATIONS No Known Immunizations SOCIAL HISTORY Never Assessed REASON FOR VISIT update referral PLAN OF CARE VITAL SIGNS MEDICATIONS [...] Influenza illness, hyperglycemia 2017 Hospitalization History [facility] [place]- High BS (Pt left AMA) 01/05/2018 Hospitalization History [facility]- DKA and UTI. Discharged 01/14/2018 Hospitalization History [facility] [place]- Nausea and Vomiting, cannot urinate 01/18/2018
--- OUTSIDE RECORDS SUMMARY | 2018-10-03 12:52 | XMS REPORT ---
Author Author ANA M CRANE Organization [facility] Address [address] [place] [address] Care Team Providers Care Management Professional Name Role Phone ANA M CRANE Unavailable PROBLEMS Type Condition ICD9-CM Code FUP12-DZ Code Onset Dates Condition Status SNOMED Code Problem Seasonal allergic rhinitis due to pollen J30.1 Active 33940338 Problem Arthritis M19.90 Active 5617572 Problem Primary insomnia F51.01 Active 6371846 Problem Dysphagia, unspecified type R13.10 Active 66301859 Problem Hyperlipidemia E78.5 Active 66106963 Problem Type 2 diabetes mellitus with hyperglycemia E11.65 Active [id number] Problem Degenerative disc disease, lumbar M51.36 Active 76886950 Problem Alterations of sensations R20.9 Active 677872311 Problem Body mass index (BMI) of 33.0-33.9 in adult Z68.33 Active 790176713 Problem Other obesity due to excess calories E66.09 Active 756930990 Problem Cervicalgia M54.2 Active 35365348 Problem Diabetic mononeuropathy associated with type 2 diabetes mellitus E11.41 Active 434814292 Problem FDC current use of insulin Z79.4 Active 651665705 Problem Essential hypertension I10 Active 34931424 Problem Fibromyalgia M79.7 Active 64771890 Problem GERD (gastroesophageal reflux disease) K21.9 Active 466231730 Problem Tobacco abuse counseling Z71.6 Active 536145264 Problem Chronic pain syndrome G89.4 Active 213559246 Problem CAD (coronary artery disease) I25.10 Active 62420295 Problem DM neuro manif type II E11.49 Active 18178123 Problem Vitamin D deficiency E55.9 Active 34749450 Problem Tobacco abuse Z72.0 Active 61208406 Problem Dental caries K02.9 Active 93423191 ALLERGIES No Information ENCOUNTERS Encounter Location Date Diagnosis [facility] [address] [facility] [id number] [address] Sep, [facility] [id number] [place] [address] 07196- 7539 Sep, [facility] [address] 58277- 1248 Sep, [facility] [id number] [place] [address] 61661- 2770 Sep, GERD (gastroesophageal reflux disease) K21.9 [facility] [address] 17903- 3760 Aug, [facility] [address] 82941- 7868 Aug, DM neuro manif type II E11.49 [facility] [id number] [place] [address] 99438- 7369 Aug, [facility] [address] 80813- 8795 Jul, [facility] [id number] [place] [address] 03906- 5509 Jul, Elevated serum creatinine R79.89 [facility] [id number] [place] [address] 18450- 0320 17 Jul, 2018 [facility] [id number] [place] [address] 63425- 7866 14 Jul, 2018 [facility] [id number] [place] [address] 39376- 8060 06 Jul, 2018 [facility] [id number] [place] [address] 92633- 2282 Jun, DM neuro manif type II E11.49 ; Hyperlipidemia E78.5 ; GERD (gastroesophageal reflux disease) K21.9 ; Fibromyalgia M79.7 ; 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 ; Chronic pain syndrome G89.4 ; Primary insomnia F51.01 ; Seasonal allergic rhinitis due to pollen J30.1 ; Elevated serum creatinine R79.89 and Dysphagia, unspecified type R13.10 [facility] [id number] [place] [address] 92225- 5043 Apr, Type 2 diabetes mellitus with hyperglycemia E11.65 [facility] [address] 45941- 4647 Apr, Hyperlipidemia E78.5 ; Chronic pain syndrome G89.4 ; Cervicalgia M54.2 ; DM neuro manif type II E11.49 ; FDC current use of insulin Z79.4 ; Nausea alone R11.0 ; Essential hypertension I10 ; GERD ( gastroesophageal reflux disease) K21.9 ; CAD (coronary artery disease) I25.10 and Diabetic mononeuropathy associated with type 2 diabetes mellitus E11.41 [facility] [address] 65505- 5216 Apr, [facility] [address] 30780- 1857 March, Essential hypertension I10 ; DM neuro manif type II E11.49 and GERD (gastroesophageal reflux disease) K21.9 [facility] [address] 71027- 8886 March, DM neuro manif type II E11.49 and GERD (gastroesophageal reflux disease) K21.9 [facility] [id number] [place] [address] 38028- 7311 March, [facility] [address] 51598- 9683 Feb, Tobacco abuse Z72.0 [facility] [address] 91974- 2506 Feb, Tobacco abuse Z72.0 [facility] [address] 52177- 4364 Feb, Hypokalemia E87.6 [facility] [address] 61803- 9350 Feb, Hyperlipidemia E78.5 ; Essential hypertension I10 ; DM neuro manif type II E11.49 ; Fibromyalgia M79.7 ; Acute non-recurrent frontal sinusitis J01.10 ; Other obesity due to excess calories E66.09 and Body mass index (BMI) of 33.0-33.9 in adult Z68.33 [facility] [address] 90984- 3097 05 Jan, 2018 Dysuria R30.0 [facility] [address] 02329- 4608 05 Jan, 2018 Dysuria R30.0 [facility] [place] [address] 94691- 7459 02 Jan, 2018 Acute cystitis with hematuria N30.01 ; DM neuro manif type II E11.49 ; FDC current use of insulin Z79.4 ; Essential hypertension I10 and Hospital discharge follow-up Z09 [facility] [place] [address] 54828- 7957 27 Dec, 2017 Chest pain, unspecified type R07.9 ; Dehydration E86.0 and Anuria R34 [facility] [address] 68428- 5032 Dec, [facility] [address] 44449- 4531 Dec, Hyperglycemia R73.9 ; Dehydration E86.0 and Acute cystitis with hematuria N30.01 [facility] [address] 61764 -5462 Dec, [facility] [address] 70621 -1168 Dec, [facility] [place] [address] 60595 -9235 Dec, [facility] [place] [address] 81160 -0516 16 Dec, 2017 Dysuria R30.0 ; Acute cystitis with hematuria N30.01 and Weakness R53.1 [facility] [id number] [place] [address] 57159- 3961 Dec, [facility] [address] 86093- 8934 Nov, [facility] [id number] [place] [address] 32555- 9529 Nov, [facility] [address] 08425- 2489 Nov, Essential hypertension I10 ; DM neuro manif type II E11.49 ; 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 ; Tobacco abuse Z72.0 ; Hyperlipidemia E78.5 ; Non-adherence to medical treatment Z91.19 ; GERD (gastroesophageal reflux disease) K21.9 ; Degenerative disc disease, lumbar M51.36 ; Fibromyalgia M79.7 ; Chronic pain syndrome G89.4 ; Dental caries K02.9 and Seasonal allergic rhinitis due to pollen J30.1 [facility] [id number] [place] [address] 23879- 8870 Nov, Alterations of sensations R20.[address] 96367- 2964 30 Sep, 2017 DM neuro manif type II E11.49 ; Hyperlipidemia E78.5 ; Degenerative disc disease, lumbar M51.36 and Chronic pain syndrome G89.4 [place] [id number] [place] [address] 08113- 6721 Sep, Arthritis M19.[address] 01569- 4645 Sep, Type 2 diabetes mellitus without complication E11.9 ; GERD ( gastroesophageal reflux disease) K21.9 ; Arthritis M19.90 and Chronic pain syndrome G89.4 [place] [id number] [place] [address] 11443- 2039 Sep, [address] 13721- 6771 Aug, [facility] [id number] [place] [address] 65577- 2555 18 Aug, 2017 Type 2 diabetes mellitus without complication E11.9 [facility] [id number] [place] [address] 70972- 3340 Aug, [facility] [id number] [place] [address] 97991- 0751 Aug, [facility] [id number] [place] [address] 21994- 4542 Aug, [facility] [id number] [place] [address] 29813- 4249 Jul, [facility] [id number] [place] [address] 28166 -2522 22 Jul, 2017 Acute non-recurrent frontal sinusitis J01.10 [facility] [id number] [place] [address] 82113- 2633 20 Jul, 2017 CAD (coronary artery disease) I25.10 and GERD ( gastroesophageal reflux disease) K21.9 [facility] [id number] [place] [address] 66952- 5813 14 Jul, 2017 Localized swelling, mass and lump, neck R22.1 [facility] [address] [id number] [place] [address] 28258- 3070 06 Jul, 2017 [facility] [id number] [place] [address] 47106- 7801 Jun, Type 2 diabetes mellitus without complication E11.9 ; Primary insomnia F51.01 ; Alterations of sensations R20.9 ; Hyperlipidemia E78.5 ; GERD (gastroesophageal reflux disease) K21.9 ; Essential hypertension I10 ; FDC current use of insulin Z79.4 ; Tobacco abuse Z72.0 ; Tobacco abuse counseling Z71.6 and CAD (coronary artery disease) I25.10 [facility] [id number] [place] [address] 11235- 6017 May, [facility] [id number] [place] [address] 49437- 7963 May, Type 2 diabetes mellitus without complication E11.9 [facility] [id number] [place] [address] 13438- 3628 May, [facility] [id number] [place] [address] 10886- 8967 March, [facility] [address] 75924- 5723 Feb, [facility] [id number] [place] [address] 18435 -4708 Jan, Acute suppurative otitis media of left ear with spontaneous rupture of tympanic membrane, recurrence not specified H66.012 [facility] [id number] [place] [address] 86869- 6376 17 Dec, 2016 Type 2 diabetes mellitus without complication E11.9 ; Lumbago M54.5 ; Cervicalgia M54.2 ; Hyperlipidemia E78.5 ; GERD ( gastroesophageal reflux disease) K21.9 ; Chronic pain syndrome G89.4 ; Dysuria R30.0 and Essential hypertension I10 [facility] [id number] [place] [address] 11798- 0171 Oct, [facility] [id number] [place] [address] 84713- 2957 30 Sep, 2016 Diabetic mononeuropathy associated with type 2 diabetes mellitus E11.41 and Coughing R05 [facility] [id number] [place] [address] 33129- 4051 28 Sep, 2016 Diabetic mononeuropathy associated with type 2 diabetes mellitus E11.41 and Coughing R05 [facility] [id number] [place] [address] 22550- 9159 Sep, Onychomycosis B35.1 ; Neuritis M79.2 and Type 2 diabetes mellitus without complication E11.9 [facility] [id number] [place] [address] 21213- 5432 Sep, [facility] [place] [id number] [place] [address] 16092- 5507 03 Sep, 2016 Cough R05 ; Seasonal allergic rhinitis due to pollen J30.1 and Acute upper respiratory infection, unspecified J06.9 [place] [place] [id number] [place] [address] 41435- 4786 Sep, [place] [place] [address] 02496- 7847 Aug, [facility] [id number] [place] [address] 33876- 2229 13 Jul, 2016 Type 2 diabetes mellitus without complication E11.9 ; Chronic pain G89.29 ; Essential hypertension I10 and Acute non-recurrent maxillary sinusitis J01.00 [place] [address] 44927- 4378 Jul, Chronic pain syndrome G89.4 ; Lumbago M54.5 and Cervicalgia M54.2 [place] [place] [address] [id number] [place] [address] 84791- 7025 Jul, [place] [address] 98374- 2338 Jul, [facility] [id number] [place] [address] 84720- 1000 Jun, Onychomycosis B35.1 ; Onychocryptosis L60.0 and DM neuro manif type II E11.49 [facility] [place] [id number] [place] [address] 11421- 4049 Jun, Type 2 diabetes mellitus without complication E11.9 ; Pain in unspecified hip M25.559 ; Other chronic pain G89.29 ; Lumbago M54.5 ; Chronic pain G89.29 ; Insomnia, unspecified G47.00 ; GERD (gastroesophageal reflux disease) K21.9 and Dental caries K02.9 [facility] [id number] [place] [address] 56679- 9782 Jun, Type 2 diabetes mellitus without complication E11.9 ; Lumbago M54.5 ; Chronic pain G89.29 ; Insomnia, unspecified G47.00 ; GERD ( gastroesophageal reflux disease) K21.9 ; Dental caries K02.9 ; Pain in unspecified hip M25.559 and Other chronic pain G89.29 [facility] [id number] [place] [address] 57377- 4497 May, [place] [place] [address] 64478- 3423 May, Type 2 diabetes mellitus without complication E11.9 ; Essential hypertension I10 ; Chronic pain syndrome G89.4 ; Other seasonal allergic rhinitis J30.2 and Insomnia, unspecified G47.00 [facility] [id number] [place] [address] 76578- 9748 Apr, [address] 78606- 6304 Apr, Hypertension I10 and Chronic pain G89.29 [place] [place] [address] 45138- 2524 March, Onychomycosis B35.1 ; Onychocryptosis L60.0 and Type 2 diabetes mellitus without complication E11.9 [place] [id number] [place] [address] 99870- 4531 March, Type 2 diabetes mellitus without complication E11.9 ; Essential hypertension I10 ; Alterations of sensations R20.9 ; Chronic pain syndrome G89.4 ; Tobacco abuse Z72.0 and Tobacco abuse counseling Z71.6 [place] [id number] [place] [address] 75417- 9290 Feb, Cough R05 ; Type 2 diabetes mellitus without complication E11.9 ; Tobacco abuse counseling Z71.6 and Chronic pain G89.29 [place] [id number] [place] [address] 24433- 9328 Feb, [address] 44069- 6828 Feb, Type 2 diabetes mellitus without complication E11.9 ; Lumbago M54.5 ; Cervicalgia M54.2 ; Degenerative disc disease, lumbar M51.36 and Numbness and tingling of both legs 782.0 [facility] [address] [place] [address] [id number] Jan, Dental caries K02.9 and Encounter for dental examination Z01.20 [facility] [place] [id number] [place] [address] 47523- 6287 Jan, Type 2 diabetes mellitus without complication E11.[address] 47191- 6993 Jan, Type 2 diabetes mellitus without complication E11.9 ; Numbness and tingling of both legs 782.0 ; Fibromyalgia M79.7 ; Hyperlipidemia E78.5 ; Lumbago M54.5 ; Cervicalgia M54.2 ; Hypertension I10 ; CAD (coronary artery disease) I25.10 ; Tobacco abuse Z72.0 ; Tobacco abuse counseling Z71.6 and GERD (gastroesophageal reflux disease) K21.9 [place] [id number] [place] [address] 70218- 8753 Jan, [place] [place] [id number] [place] [address] 66106- 2411 Dec, [facility] [id number] [place] [address] [id number] Dec, Dental examination Z01.20 and Dental caries K02.9 [facility] [place] [id number] [place] [address] 17895- 4878 Dec, Edema R60.9 ; Type 2 diabetes mellitus without complication E11.9 ; Hypertension I10 and Mouth pain K13.79 [facility] [place] [id number] [place] [address] 27445- 1524 Dec, Degenerative disc disease, lumbar M51.36 [place] [address] 02861- 9598 Dec, [place] [place] [id number] [place] [address] 65871- 2005 Nov, Insomnia, unspecified G47.00 [facility] [place] [id number] [place] [address] 59485- 6558 Nov, Type 2 diabetes mellitus without complication E11.9 ; Lumbago M54.5 ; Degenerative disc disease, lumbar M51.36 ; Fibromyalgia M79.7 ; Coronary artery disease I25.10 ; Hyperlipidemia E78.5 ; Controlled substance agreement signed Z79.899 ; Dysuria R30.0 ; Insomnia, unspecified G47.00 ; GERD ( gastroesophageal reflux disease) K21.9 ; Hypertension 401.9 and FDC current use of insulin Z79.4 [facility] [place] [id number] [place] [address] 08705- 0932 Nov, [address] 49932- 0029 Oct, Degenerative disc disease, lumbar M51.36 ; Cervicalgia M54.2 ; Insomnia, unspecified G47.00 ; Decreased GFR R94.4 and GERD ( gastroesophageal reflux disease) K21.9 [facility] [place] [id number] [place] [address] 07286- 6406 Oct, Lumbago M54.5 [facility] [id number] [place] [address] 08882- 3355 Oct, Low back pain M54.5 [facility] [address] [id number] [place] [address] 23010- 0630 Oct, [address] 09534- 5409 Oct, Disorientation R41.0 [place] [id number] [place] [address] 27480- 4243 Oct, Type 2 diabetes mellitus without complication E11.9 ; Disorientation R41.0 and Chest pain R07.[id number] [place] [address] 00497- 3840 Oct, [facility] [id number] [place] [address] 76415- 2706 Sep, Low back pain M54.5 [facility] [id number] [place] [address] 80102- 0081 Sep, Insomnia, unspecified G47.00 [facility] [address] [place] [address] 08912- 4417 Aug, Degenerative disc disease, lumbar M51.36 ; Type 2 diabetes mellitus without complication E11.9 and Encounter for immunization Z23 [facility] [id number] [place] [address] 15555- 6531 Aug, [facility] [id number] [place] [address] 18484- 0720 Aug, [facility] [id number] [place] [address] 17445- 4306 Aug, [facility] [id number] [place] [address] 50384- 0049 Jul, [facility] [id number] [place] [address] 35033- 0861 Jun, [facility] [id number] [place] [address] 30355- 3142 Jun, Chest pain 786.50 and Lumbago 724.2 [facility] [id number] [place] [address] 10969- 4604 Jun, [facility] [id number] [place] [address] 68531- 2977 Jun, [facility] [id number] [place] [address] [id number] Jun, Dental examination V72.2 [facility] [id number] [place] [address] 52906- 7032 Jun, [facility] [address] [address]- 5358 May, Left shoulder pain 719.41 and Numbness and tingling of both legs 782.0 [facility] [id number] [place] [address] 35080- 8954 May, Cough 786.2 ; Numbness and tingling of both legs 782.0 and Acute rhinitis 460 [facility] [id number] [place] [address] 50166- 3200 May, [facility] [id number] [place] [address] 01396- 2274 Apr, [facility] [id number] [place] [address] 53297- 8905 Apr, Bilateral lower extremity edema 782.3 ; Lumbago 724.2 and Insomnia 780.52 [facility] [id number] [place] [address] 76318- 6585 Apr, [facility] [id number] [place] [address] 17706- 1433 Apr, [facility] [id number] [place] [address] 06919- 6827 March, Seborrheic keratosis 702.19 and Skin lesion of face 709.9 [facility] [id number] [place] [address] 45418- 4768 March, [facility] [id number] [place] [address] 94787- 6251 March, [facility] [id number] [place] [address] 63464- 5870 March, [facility] [id number] [place] [address] 21052135- 5456 March, [facility] [id number] [place] [address] 01697- 2018 Feb, [facility] [place] [facility] [address] [id number] [place] [address]- 3553 13 Feb, 2015 [facility] [place] [facility] [address] [id number] [place] [address]- 2981 25 Jan, 2015 [facility] [place] [facility] [address] [id number] [place] [address]- 4277 25 Jan, 2015 [facility] [place] [facility] [address] [id number] [place] [address]- 3087 16 Jan, 2015 [facility] [place] [facility] [address] [id number] [place] [address]- 2784 16 Jan, 2015 [facility] [place] [facility] [address] [id number] [place] [address]- 4568 16 Jan, 2015 [facility] [place] [facility] [address] [id number] [place] [address]- 5929 16 Jan, 2015 [facility] [place] [facility] [address] [id number] [place] [address]- 5766 13 Jan, 2015 [facility] [place] [facility] [address] [id number] [place] [address]- 7570 13 Jan, 2015 [facility] [place] [facility] [address] [id number] [place] [address]- 7809 Jan, [facility] [place] [facility] [address] [id number] [place] [address]- 6982 Jan, [facility] [place] [facility] [address] [id number] [place] [address]- 9058 10 Jan, 2015 [facility] [place] [facility] [address] [id number] [place] [address]- 2010 27 Dec, 2014 [facility] [place] [facility] [address] [id number] [place] [address]- 7870 Dec, [facility] [place] [facility] [address] [id number] [place] [address]- 0166 26 Dec, 2014 [facility] [place] [facility] [address] [id number] [address]- 4311 Dec, [facility] [address] [id number] [place] [address]- 6463 Dec, [facility] [place] [facility] [address] [id number] [place] [address]- 9548 Dec, [facility] [place] [facility] [address] [id number] [place] [address] Nov, [facility] [place] [facility] [address] [id number] [place] [address] Nov, [facility] [place] [facility] [address] [id number] [place] [address] Nov, [facility] [place] [facility] [address] [id number] [place] [address] Nov, [facility] [place] [facility] [address] [id number] [place] [address] Nov, [facility] [place] [facility] [address] [id number] [place] [address] Nov, [facility] [place] [facility] [address] [id number] [place] [address] Nov, [facility] [place] [facility] [address] [facility] [id number] [place] [address] Nov, [facility] [place] [facility] [address] [id number] [place] [address] Nov, [facility] [place] [facility] [address] [id number], [place] [address] Nov, [facility] [place] [facility] [address] [id number] [place] [address] Nov, [facility] [place] [facility] [address] [id number] [place] [address] Oct, [facility] [place] [facility] [address] [id number] [place] [address] Oct, [facility] [place] [facility] [address] [id number] [place] [address] Oct, [facility] [place] [facility] [address] [id number] [place] [address] Oct, [facility] [place] [facility] [address] [id number] [place] [address] Oct, [facility] [place] [facility] [address] [id number] [place] [address] Oct, [facility] [place] [facility] [address] [id number] [place] [address] Oct, [facility] [place] [facility] [address] [id number] [place] [address] Oct, [facility] [place] [facility] [address] [id number] [place] [address] Oct, [facility] [place] [facility] [address] [id number] [place] [place] [address] Oct, [facility] [place] [facility] [address] [id number] [place] [address] Sep, [facility] [place] [facility] [address] [id number] [place] [address] Sep, [facility] [place] [facility] [address] [id number] [place] [address] Sep, [facility] [place] [facility] [address] [id number] [place] [address] Sep, [facility] [place] [facility] [address] [id number] [place] [address] Sep, [facility] [place] [facility] [address] [id number] [place] [address] Sep, [facility] [place] [facility] [address] [id number] [place] [address] Sep, [facility] [place] [facility] [address] [id number] [place] [address] Sep, [facility] [place] [facility] [address] [id number] [place] [address] Sep, [facility] [place] [facility] [address] [id number] [place] [address] Sep, [facility] [place] [facility] [address] [id number] [place] [address] Sep, [facility] [place] [facility] [address] [id number] [place] [address] Sep, [facility] [place] [facility] [address] [id number] [place] [address] Sep, [facility] [place] [facility] [address] [id number] [place] [address] Aug, [facility] [place] [facility] [address] [id number] [place] [address] Aug, [facility] [place] [facility] [address] [id number] [address] Aug, [facility] [place] [facility] [address] [id number] [place] [address] Aug, [facility] [place] [facility] [address] [id number] [place] [address] Aug, [facility] [place] [facility] [address] [id number], [place] [address] 30 Aug, 2014 [facility] [place] [facility] [address] [id number], [place] [address] Aug, [facility] [place] [facility] [address] [id number] [place] [address] 24 Aug, 2014 [facility] [place] [facility] [address] [id number], [place] [address] Aug, [facility] [place] [facility] [address] [id number], [place] [address] Aug, [facility] [place] [facility] [address] [id number] [place] [address] Aug, [facility] [place] [facility] [address] [id number] [place] [address] Aug, [facility] [place] [facility] [address] [id number] [place] [address] Aug, [facility] [place] [facility] [address] [id number] [place] [address] Aug, [facility] [place] [facility] [address] [id number] [place] [address] Aug, [facility] [place] [facility] [address] [id number] [place] [address] Aug, [facility] [place] [facility] [address] [id number] [place] [address] Aug, [facility] [place] [facility] [address] [id number] [place] [address] 1994 Aug, [facility] [place] [facility] [address] [id number] [place] [address] 30 Sep, 2013 [facility] [place] [facility] [address] [id number] [place] [address] 30 Sep, 2013 [facility] [place] [facility] [address] [id number] [place] [address] 24 Sep, 2013 [facility] [place] [facility] [address] [id number] [place] [address] 24 Sep, 2013 [facility] [place] [facility] [address] [id number] [place] [address]- [address] 23 Sep, 2013 [facility] [place] [facility] [address] [id number] [place] [address] 25[address] 23 Sep, 2013 [facility] [place] [facility] [address] [id number] [place] [address] 15 Sep, 2013 [facility] [place] [facility] [address] [id number] [place] [address] Jul, [facility] [address] [facility] [id number], [place] [address] 15 Jul, 2014 [facility] [address] [facility] [id number], [place] [address] Jul, [facility] [address] [id number], [place] [address] Jul, [facility] [address] [id number], [place] [address] Jul, [facility] [address] [facility] [id number], [place] [address] Jul, [facility] [address] [id number], [place] [address] Jul, IMMUNIZATIONS No Known Immunizations SOCIAL HISTORY Never Assessed REASON FOR VISIT Refill request PLAN OF CARE VITAL SIGNS MEDICATIONS Medication Instructions Dosage Frequency Start Date End Date Duration Status Omeprazole 20 mg Orally Once a day 1 capsule 24h Active RESULTS No Results PROCEDURES No Known procedures INSTRUCTIONS MEDICATIONS ADMINISTERED No Known Medications MEDICAL (GENERAL) HISTORY Type Description Date Medical History hearing loss Medical History hypertension Medical History acute renal failure Medical History hyperlipidemia Medical History type II diabetes Medical History Arthritis Medical History degenerative disease lumbosacral spine Medical History chronic pain r/t DDD Medical History fibromyalgia Medical History OK-stent to LAD Surgical History cholecystectomy 1983 Surgical [...] Influenza illness, hyperglycemia 2017 Hospitalization History [facility]- High BS (Pt left AMA) 01/05/2018 Hospitalization History [facility]- DKA and UTI. Discharged 01/14/2018 Hospitalization History [facility]- Nausea and Vomiting, cannot urinate 01/18/2018
[2018-10-03 12:57] LABS: BASOPHILS # (AUTO) 0.1 10^3/uL (0.0-0.1); BASOPHILS % (AUTO) 1 % (0-10); EOSINOPHILS # (AUTO) 0.2 10^3/uL (0.0-0.3); EOSINOPHILS % (AUTO) 2 % (0-10); HEMATOCRIT 33 % (35-52); HEMOGLOBIN 11.9 G/DL (11.5-16.0); LYMPHOCYTES # (AUTO) 2.8 X 10^3 (1.0-4.0); LYMPHOCYTES % (AUTO) 28 % (12-44); MEAN CORPUSCULAR HEMOGLOBIN 31 PG (25-34); MEAN CORPUSCULAR HGB CONC 36 G/DL (32-36); MEAN CORPUSCULAR VOLUME 88 FL (80-99); MEAN PLATELET VOLUME 10.5 FL (7.4-10.4); MONOCYTES # (AUTO) 0.9 X 10^3 (0.0-1.0); MONOCYTES % (AUTO) 9 % (0-12); NEUTROPHILS # (AUTO) 5.9 X 10^3 (1.8-7.8); NEUTROPHILS % (AUTO) 60 % (42-75); PLATELET COUNT 361 10^3/uL (130-400); RED BLOOD COUNT 3.79 10^6/uL (4.35-5.85); RED CELL DISTRIBUTION WIDTH 13.1 % (10.0-14.5); WHITE BLOOD COUNT 9.8 10^3/uL (4.3-11.0)
[2018-10-03] MEDS ORDERED: inSUlin (REGULAR) HUMAN 1 UNIT/0.01 ML (CHARGE PER UNIT) IV ONE (13:00)
[2018-10-03] MEDS: NS IV 1000 ML 1,000 ML IV SCH ×2 (13:07→14:47)
[2018-10-03 13:17] LABS: ALBUMIN 3.8 GM/DL (3.2-4.5); BILIRUBIN,TOTAL 0.5 MG/DL (0.1-1.0); CALCIUM 8.8 MG/DL (8.5-10.1); CREATININE SERUM 1.4 MG/DL (0.60-1.30); TOTAL PROTEIN 6.6 GM/DL (6.4-8.2)
[2018-10-03 13:20] LABS: BILIRUBIN,URINE NEGATIVE (NEGATIVE); CLARITY,URINE CLEAR; COLOR,URINE YELLOW; GLUCOSE, URINE (UA) 4+ (NEGATIVE); KETONES,URINE NEGATIVE (NEGATIVE); LEUKOCYTE ESTERASE ,URINE NEGATIVE (NEGATIVE); NITRITE,URINE NEGATIVE (NEGATIVE); PH,URINE 6 (5-9); PROTEIN,URINE 1+ (NEGATIVE); UROBILINOGEN,URINE NORMAL (NORMAL)
--- NOTE | 2018-10-03 13:25 | ED General ---
General Chief Complaint: Glucose Problems Source of Information: Patient, EMS Exam Limitations: No Limitations History of Present Illness Date Seen by Provider: Oct 03, 2018 Time Seen by Provider: 12:40 Initial Comments To ER per EMS from [facility] where she presented with elevated glucose nausea and vomiting. She states to me that she has already taken 60 units of NovoLog today and has not had any change in her blood sugar. She states that she's felt unwell for the past few days. Timing/Duration: 2-3 Days Severity: Moderate Associated Systoms: Nausea/Vomiting Allergies and Home Medications Allergies Coded Allergies: ketorolac (Verified Allergy, Severe, ANAPHYLAXIS, PT TAKES ASA AT HOME, ) ondansetron (Verified Allergy, Intermediate, RASH, 07/19/14) RASH/ HIVES exenatide (Verified Allergy, Unknown, NAUSEA, 07/19/14) NON STOP VOMITING latex (Verified Allergy, Unknown, RASH, 07/19/14) metoclopramide (Verified Allergy, Unknown, RESTLESS LEGS, 07/19/14) Home Medications Amlodipine Besylate 10 Mg Tablet, 10 MG PO DAILY Prescribed by: TABATHA COVARRUBIAS on 08/04/18 1106 Aspirin 81 Mg Tablet.dr, 81 MG PO DAILY, (Reported) Atorvastatin Calcium 40 Mg Tablet, 40 MG PO HS, (Reported) Gabapentin 800 Mg Tablet, 1,600 MG PO HS, (Reported) TAKES 2 (800MG) TABLETS Gabapentin 800 Mg Tablet, 800 MG PO DAILY PRN for NERVE PAIN, (Reported) Insulin Detemir 100 Unit/1 Ml Insuln.pen, 40 UNITS SQ HS Prescribed by: TABATHA COVARRUBIAS on 07/31/18 1437 Insulin Lispro 100 Unit/1 Ml Insuln.pen, SQ AC, (Reported) SHE IS UNSURE OF HER SLIDING SCALE AND CAN NOT REMEMBER HOW MANY UNITS SHE TYPICALLY USES, SHE TESTS HER BLOOD SUGAR AND ENTERS HER CARBS AND HER METER TELLS HER HOW MANY UNITS OF INSULIN TO USE Linagliptin 5 Mg Tablet, 5 MG PO DAILY, (Reported) Omeprazole 20 Mg Capsule.dr, 20 MG PO DAILY, (Reported) Oxycodone HCl 10 Mg Tablet, 10 MG PO DAILY PRN for PAIN-SEVERE, (Reported) Oxycodone HCl/Acetaminophen 1 Each Tablet, 1 TAB PO Q4H PRN for PAIN-MODERATE, ( Reported) MAX OF 5 TABLETS PER DAY Promethazine HCl 25 Mg Supp.rect, 25 MG RC Q6H PRN for NAUSEA/VOMITING-2ND LINE, (Reported) Ranitidine HCl 150 Mg Tablet, 150 MG PO BID, (Reported) Patient Home Medication List Home Medication List Reviewed: Yes Review of Systems Review of Systems Constitutional: see HPI EENTM: see HPI Respiratory: no symptoms reported Cardiovascular: no symptoms reported Genitourinary: no symptoms reported Musculoskeletal: see HPI Skin: no symptoms reported Psychiatric/Neurological: No Symptoms Reported Past Tlmkrtp-Exbagy-Epihcs Hx Patient Social History Alcohol Beverage of Choice: Wine Type Used: Cigarettes Former Smoker, Quit: Nov 10, 2017 2nd Hand Smoke Exposure: No Recent Hopitalizations: Yes Immunizations Up To Date Tetanus Booster (TDap): Unknown PED Vaccines UTD: No Date of Pneumonia Vaccine: Dec 12, 2013 Date of Influenza Vaccine: Sep 07, 2017 Seasonal Allergies Seasonal Allergies: Yes Past Medical History Surgeries: Yes Cardiac, Coronary Stent, Ear Surgery, Gallbladder, Orthopedic, Renal Respiratory: Yes (HX OF TOBACCO USE--1 PPD, REPORTEDLY QUIT 11/2017) Chronic Bronchitis, Sleep Apnea Currently Using CPAP: No Currently Using BIPAP: No Cardiac: Yes (CARDIAC STENTS; DVT'S IN ARMS) Chronic Edema/Swelling, Coronary Artery Disease, Deep Vein Thrombosis, High Cholesterol, Hypertension Neurological: Yes (NEUROPATHY IN HANDS AND FEET) Headaches /Migraines, Neuropathy 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 Disorders: No 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 Sexually Transmitted Disease: No HIV/AIDS: No Genitourinary: Yes Bladder Infection, Kidney Stones, Renal Failure Gastrointestinal: Yes Gastroesophageal Reflux, Diverticulosis, Hiatal Hernia, Irritable Bowel Musculoskeletal: Yes Degenerate Disk Disease, Fibromyalgia, Chronic Back Pain Endocrine: Yes Diabetes, Insulin dep HEENT: Yes (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; POOR DENTITION) Chronic Ear Infection Loss of Vision: Denies Hearing Impairment: Hard of Hearing Cancer: No Psychosocial: Yes Anxiety Integumentary: Yes Psoriasis Blood Disorders: No Adverse Reaction/Blood Tranf: No Family Medical History Cancer of mouth 19 FATHER ( of esophogeal cancer.) Cardiovascular disease 19 MOTHER G8 BROTHER Completed stroke 19 FATHER G8 BROTHER Diabetes mellitus G8 BROTHER FH: lung cancer 19 MOTHER Hypertension 19 FATHER Kidney disease 19 FATHER Myocardial infarction 19 MOTHER G8 BROTHER Respiratory disorder No Family History of: AIDS No Pertinent Family Hx Physical Exam Vital Signs Capillary Refill : Height, Weight, BMI Height: 5'0.00" Weight: 149lbs. 8.0oz. 67.771687wq; 31.3 BMI Method:Stated General Appearance: No Apparent Distress, WD/WN Eyes: Bilateral Eye Normal Inspection, Bilateral Eye PERRL, Bilateral Eye EOMI HEENT: PERRL/EOMI Neck: Full Range of Motion, Normal Inspection, Other (incision to the right lateral neck with sutures remaining in place, minor surrounding ecchymosis but no surrounding erythema and no drainage from the wound. States this was from Dr. Rubin having removed and "lump" a few days ago.) Respiratory: No Accessory Muscle Use, No Respiratory Distress Cardiovascular: Normal Peripheral Pulses, Tachycardia Gastrointestinal: Normal Bowel Sounds, Non Tender, Soft Neurologic/Psychiatric: Alert, Oriented x3 Skin: Normal Color, Warm/Dry Progress/Results/Core Measures Suspected Sepsis SIRS Temperature: Pulse: Respiratory Rate: Laboratory Tests 10/03/18 12:48: White Blood Count 9.8 Blood Pressure / Mean: Laboratory Tests 10/03/18 12:48: Creatinine 1.40H, Platelet Count 361, Total Bilirubin 0.5 Results/Orders Lab Results Laboratory Tests Test 10/03/18 12:48 10/03/18 13:11 Range/Units White Blood Count 9.8 4.3-11.0 10^3/uL Red Blood Count 3.79 L 4.35-5.85 10^6/uL Hemoglobin 11.9 11.5-16.0 G/DL Hematocrit 33 L 35-52 % Mean Corpuscular Volume 88 80-99 FL Mean Corpuscular Hemoglobin 31 25-34 PG Mean Corpuscular Hemoglobin Concent 36 32-36 G/DL Red Cell Distribution Width 13.1 10.0-14.5 % Platelet Count 361 130-400 10^3/uL Mean Platelet Volume 10.5 H 7.4-10.4 FL Neutrophils (%) (Auto) 60 42-75 % Lymphocytes (%) (Auto) 28 12-44 % Monocytes (%) (Auto) 9 0-12 % Eosinophils (%) (Auto) 2 0-10 % Basophils (%) (Auto) 1 0-10 % Neutrophils # (Auto) 5.9 1.8-7.8 X 10^3 Lymphocytes # (Auto) 2.8 1.0-4.0 X 10^3 Monocytes # (Auto) 0.9 0.0-1.0 X 10^3 Eosinophils # (Auto) 0.2 0.0-0.3 10^3/uL Basophils # (Auto) 0.1 0.0-0.1 10^3/uL Potassium Level 5.0 3.6-5.0 MMOL/L Chloride Level 90 L 98-107 MMOL/L Carbon Dioxide Level 17 L 21-32 MMOL/L Anion Gap 12 5-14 MMOL/L Blood Urea Nitrogen 20 H 7-18 MG/DL Creatinine 1.40 H 0.60-1.30 MG/DL Estimat Glomerular Filtration Rate 38 BUN/Creatinine Ratio 14 Glucometer > 600 *H 70-110 MG/DL Calcium Level 8.8 8.5-10.1 MG/DL Corrected Calcium 9.0 8.5-10.1 MG/DL Total Bilirubin 0.5 0.1-1.0 MG/DL Aspartate Amino Transf (AST/SGOT) 7 5-34 U/L Alanine Aminotransferase (ALT/SGPT) 13 0-55 U/L Alkaline Phosphatase 62 40-136 U/L Total Protein 6.6 6.4-8.2 GM/DL Albumin 3.8 3.2-4.5 GM/DL My Orders Orders - JR MARIE APRN Insulin (Regular) Human (Humulin R (Per (10/03/18 13:00) Ns Iv 1000 Ml (Sodium Chloride 0.9%) (10/03/18 13:00) Cbc With Automated Diff (10/03/18 12:51) Comprehensive Metabolic Panel (10/03/18 12:51) Ua Culture If Indicated (10/03/18 12:51) Insulin Regular Tpn/Drip Only (Humulin R (10/03/18 13:30) Drug Screen Stat (Urine) (10/03/18 13:18) Beta Hydroxybutyrate (10/03/18 13:18) Medications Given in ED Current Medications Medications Dose Ordered Sig/Jackie Route Start Time Stop Time Status Last Admin Dose Admin Insulin Human Regular 10 unit ONCE ONCE IV 10/03/18 13:00 10/03/18 13:01 DC 10/03/18 13:01 10 UNIT Vital Signs/I&O Capillary Refill : Departure Impression Primary Impression: Diabetic ketoacidosis Qualified Codes: E11.10 - Type 2 diabetes mellitus with ketoacidosis without coma Disposition: ADMITTED INPATIENT Condition: Stable Departure-Patient Inst. Referrals: WINDY GRIFFIN DO (PCP) Primary Care Physician MARCELINO BURKS APRN (Family) Primary Care Physician JR MARIE APRN Oct 03, 2018 13:24
[2018-10-03 13:27] LABS: BACTERIA,URINE NEGATIVE /HPF; WBC,URINE RARE /HPF
[2018-10-03] MEDS ORDERED: inSUlin REGULAR TPN/DRIP ONLY 250 UNITS in NORMAL SALINE 250 ML IV SCH ×2 (13:30→14:45)
[2018-10-03 13:38] LABS: AMPHETAMINE SCREEN, URINE NEGATIVE (NEGATIVE); BARBITURATE SCREEN URINE NEGATIVE (NEGATIVE); BENZODIAZEPINES SCREEN URINE NEGATIVE (NEGATIVE); CANNABINOID SCREEN, URINE NEGATIVE (NEGATIVE); COCAINE SCREEN URINE NEGATIVE (NEGATIVE); METHADONE STAT NEGATIVE (NEGATIVE); METHAMPHETAMINE SCREEN URINE S NEGATIVE (NEGATIVE); OPIATE SCREEN URINE NEGATIVE (NEGATIVE); OXYCODONE STAT NEGATIVE (NEGATIVE); PROPOXYPHENE STAT NEGATIVE (NEGATIVE); TRICYCLIC ANTIDEPRESSANTS SCRE NEGATIVE (NEGATIVE)
[2018-10-03] MEDS ORDERED: NS IV 1000 ML 1,000 ML IV SCH (14:35)
[2018-10-03] MEDS ORDERED: PROMETHAZINE INJ 25 MG/ML (PHENERGAN) AMP IV PRN (14:45)
[2018-10-03] MEDS ORDERED: POTASSIUM CL 10MEQ/50ML IVPB 50 ML IV SCH (14:45)
[2018-10-03] MEDS ORDERED: CATHETER FLUSH 10 ML SYR IV PRN (14:45)
[2018-10-03] MEDS: 1/2 NS IV SOLUTION 1,000 ML IV SCH ×3 (14:46→23:00)
[2018-10-03] MEDS: POTASSIUM CL 10MEQ/50ML IVPB 50 ML IV SCH ×3 (16:16→20:36)
[2018-10-03] MEDS ORDERED: PROMETHAZINE 25 MG (PHENERGAN) SUPP RC PRN (16:30)
--- NOTE | 2018-10-03 16:33 | History & Physicial ([facility]) ---
HPI History of Present Illness: 58 yo female presented to clinic with nausea and vomiting and found to have unreadable high blood sugar. In ER glucose over [address]. She states she has taken 60 units of novolog today and is using 40 units of levemir daily. She says her blood sugar has been too high to read every morning for a week or so. 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 Date seen by provider: Oct 03, 2018 Time Seen by Provider: 16:40 Attending Physician Tabatha Li MD PCP [place] [place] Consult Date of Admission Oct 03, 2018 at 1:35 pm Home Medications Home Medications Reviewed patient Home Medication Reconciliation performed by pharmacy medication reconciliations orthodontic lab technician and/or nursing. Patients Allergies have been reviewed. Allergies Coded Allergies: ketorolac (Verified Allergy, Severe, ANAPHYLAXIS, PT TAKES ASA AT HOME, ) ondansetron (Verified Allergy, Intermediate, RASH, 07/19/14) RASH/ HIVES exenatide (Verified Allergy, Unknown, NAUSEA, 07/19/14) NON STOP VOMITING latex (Verified Allergy, Unknown, RASH, 07/19/14) metoclopramide (Verified Allergy, Unknown, RESTLESS LEGS, 07/19/14) FEZ-Phlrlo-Iyiihb Hx Patient Social History Alcohol Use: Denies Use Recreational Drug Use: No Smoking Status: Former Smoker Type Used: Cigarettes 2nd Hand Smoke Exposure: No Recent Foreign Travel: No Contact w/other who traveled: No Recent Hopitalizations: Yes Recent Infectious Disease Expo: No Immunizations Up To Date Tetanus Booster (TDap): Unknown Date of Pneumonia Vaccine: Dec 12, 2013 Date of Influenza Vaccine: Sep 07, 2017 Past Medical History Past Medical History 1. Diabetes Mellitus Type 2 w/ multiple hospitalizations for severe hyperglycemia and DKA, easily controlled on admission and administration of insulin. 2. Hypertension 3.Hyperlipidemia 4.Chronic Kidney Disease 5. Irritable Bowel Disorder 6. Fibromyalgia 7.Psoriasis 8.chronic neck and back pain- on chronic narcotics from pain management 9. hx of blood clots in the upper extremities 10. Anxiety 11. Tobaccoism 12. 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 GERD 14. Diverticulosis PSH: 1.Renal stent 2.cholecystectomy 3.Laminectomy 5.ear tubes as a child Family Medical History Significant Family History: CAD Over 55 Years Old, CVA, Diabetes, Renal Disease Family History: Cancer of mouth 19 FATHER ( of esophogeal cancer.) Cardiovascular disease 19 MOTHER G8 BROTHER Completed stroke 19 FATHER G8 BROTHER Diabetes mellitus G8 BROTHER FH: lung cancer 19 MOTHER Hypertension 19 FATHER Kidney disease 19 FATHER Myocardial infarction 19 MOTHER G8 BROTHER Respiratory disorder No Family History of: AIDS Review of Systems ([facility]) Constitutional: No fever EENTM: nose congestion; No throat pain Respiratory: No cough, No short of breath Cardiovascular: chest pain (she relates to her esophagus) Gastrointestinal: abdominal pain, diarrhea, nausea, vomiting Genitourinary: dysuria Musculoskeletal: back pain, joint pain Skin: No rash Reviewed Test Results Reviewed Test Results Lab Laboratory Tests Test 10/03/18 12:48 10/03/18 13:11 10/03/18 14:48 10/03/18 15:05 Range/Units White Blood Count 9.8 4.3-11.0 10^3/uL Red Blood Count 3.79 L 4.35-5.85 10^6/uL Hemoglobin 11.9 11.5-16.0 G/DL Hematocrit 33 L 35-52 % Mean Corpuscular Volume 88 80-99 FL Mean Corpuscular Hemoglobin 31 25-34 PG Mean Corpuscular Hemoglobin Concent 36 32-36 G/DL Red Cell Distribution Width 13.1 10.0-14.5 % Platelet Count 361 130-400 10^3/uL Mean Platelet Volume 10.5 H 7.4-10.4 FL Neutrophils (%) (Auto) 60 42-75 % Lymphocytes (%) (Auto) 28 12-44 % Monocytes (%) (Auto) 9 0-12 % Eosinophils (%) (Auto) 2 0-10 % Basophils (%) (Auto) 1 0-10 % Neutrophils # (Auto) 5.9 1.8-7.8 X 10^3 Lymphocytes # (Auto) 2.8 1.0-4.0 X 10^3 Monocytes # (Auto) 0.9 0.0-1.0 X 10^3 Eosinophils # (Auto) 0.2 0.0-0.3 10^3/uL Basophils # (Auto) 0.1 0.0-0.1 10^3/uL Sodium Level 119 *L 135-145 MMOL/L Potassium Level 5.0 3.6-5.0 MMOL/L Chloride Level 90 L 98-107 MMOL/L Carbon Dioxide Level 17 L 21-32 MMOL/L Anion Gap 12 5-14 MMOL/L Blood Urea Nitrogen 20 H 7-18 MG/DL Creatinine 1.40 H 0.60-1.30 MG/DL Estimat Glomerular Filtration Rate 38 BUN/Creatinine Ratio 14 Glucose Level 1017 *H 684 *H 70-105 MG/DL Glucometer > 600 *H > 600 *H 70-110 MG/DL Calcium Level 8.8 8.5-10.1 MG/DL Corrected Calcium 9.0 8.5-10.1 MG/DL Total Bilirubin 0.5 0.1-1.0 MG/DL Aspartate Amino Transf (AST/SGOT) 7 5-34 U/L Alanine Aminotransferase (ALT/SGPT) 13 0-55 U/L Alkaline Phosphatase 62 40-136 U/L Total Protein 6.6 6.4-8.2 GM/DL Albumin 3.8 3.2-4.5 GM/DL Beta-Hydroxybutyrate (Chem panel) 0.06 0.00-0.27 MMOL/L Urine Opiates Screen NEGATIVE NEGATIVE Urine Oxycodone Screen NEGATIVE NEGATIVE Urine Methadone Screen NEGATIVE NEGATIVE Urine Propoxyphene Screen NEGATIVE NEGATIVE Urine Barbiturates Screen NEGATIVE NEGATIVE Ur Tricyclic Antidepressants Screen NEGATIVE NEGATIVE Urine Phencyclidine Screen NEGATIVE NEGATIVE Urine Amphetamines Screen NEGATIVE NEGATIVE Urine Methamphetamines Screen NEGATIVE NEGATIVE Urine Benzodiazepines Screen NEGATIVE NEGATIVE Urine Cocaine Screen NEGATIVE NEGATIVE Urine Cannabinoids Screen NEGATIVE NEGATIVE Urine Color YELLOW Urine Clarity CLEAR Urine pH 6 5-9 Urine Specific Gotham 1.010 L 1.016-1.022 Urine Protein 1+ H NEGATIVE Urine Glucose (UA) 4+ H NEGATIVE Urine Ketones NEGATIVE NEGATIVE Urine Nitrite NEGATIVE NEGATIVE Urine Bilirubin NEGATIVE NEGATIVE Urine Urobilinogen NORMAL NORMAL MG/DL Urine Leukocyte Esterase NEGATIVE NEGATIVE Urine RBC (Auto) NEGATIVE NEGATIVE Urine RBC NONE /HPF Urine WBC RARE /HPF Urine Squamous Epithelial Cells 2-5 /HPF Urine Crystals NONE /LPF Urine Bacteria NEGATIVE /HPF Urine Casts NONE /LPF Urine Mucus NEGATIVE /LPF Urine Culture Indicated NO Physical Exam-([facility]) Physical Exam Vital Signs VS - Last 72 Hours, by Label 10/03/18 10/03/18 10/03/18/12/18 12:42 14:10 14:30 14:30 Temp 99.2 97.5 Pulse 78 80 77 Resp 18 18 16 B/P (MAP) 153/76 (101) 133/99 (110) 140/80 (100) Pulse Ox 97 97 94 O2 Delivery Room Air Room Air 10/03/18 10/03/18 10/03/18 10/03/18 14:30 15:00 16:00 17:00 Pulse 77 71 68 Resp 8 15 30 B/P (MAP) 135/91 (106) 155/83 (107) 162/85 (110) Pulse Ox 97 96 97 97 O2 Delivery Room Air Room Air Room Air Room Air 10/03/18 18:00 Pulse 70 Resp 11 B/P (MAP) 127/98 (108) Pulse Ox 97 O2 Delivery Room Air Capillary Refill : Less Than 3 Seconds General Appearance: no apparent distress Respiratory: lungs clear, no respiratory distress Cardiovascular: regular rate, rhythm, no murmur Gastrointestinal: normal bowel sounds, non tender, soft Extremities: no pedal edema Neurologic/Psychiatric: alert Skin: normal color, warm/dry Assessment/Plan Assessment/Plan Admission Dx Severe hyperglycemia Admission Status: Inpatient Order (span 2 midnights) Reason for Inpatient Admission: Severe hyperglycemia with LANE requiring continuous insulin infusion. (1) Hyperglycemia Status: Acute Assessment & Plan: R/O hyperosmolar hyperglycemic state- calculated osmolality 301, typical for HH state is over 350. Started on insulin drip per DKA protocol. (2) Hyponatremia Status: Acute Assessment & Plan: Pseudohyponatremia- corrected for glucose, Na is 141. (3) Acute renal insufficiency Status: Acute Assessment & Plan: Due to dehydration/hyperglycemia. IVF per DKA protocol. (4) Chronic back pain Status: Chronic Assessment & Plan: Resume home medications (5) IDDM (insulin dependent diabetes mellitus) Status: Chronic Assessment & Plan: Hold home meds while on insulin drip. (6) Peripheral neuropathy Status: Chronic Assessment & Plan: Resume home gabapentin (7) Intractable nausea and vomiting Status: Chronic Assessment & Plan: With multiple admissions, multiple reported allergies and adverse affects to multiple medications, reported history of normal GET. Resume home phenergan suppositories. 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 (9) DVT prophylaxis Status: Acute Assessment & Plan: Enoxaparin TABATHA LI MD Oct 03, 2018 4:32 pm
[2018-10-03] MEDS: oxyCODONE/APAP 10/325MG (PERCOCET 10) TABLET PO PRN ×2 (16:35→20:33)
[2018-10-03] MEDS ORDERED: GABAPENTIN 400 MG (NEURONTIN) CAP PO PRN (16:45)
[2018-10-03] MEDS: ENOXAPARIN 40 MG/0.4 ML (LOVENOX) SYR SC SCH (17:15)
[2018-10-03] MEDS: D5 1/2 NS 1000 ML IV SOLUTION 1,000 ML IV SCH (18:06)
[2018-10-03] MEDS ORDERED: FLU QUADRIvalent (5+ YOA) 2018-2019 (AFLURIA) 0.5 ML IM ONE (19:30)
[2018-10-03] MEDS: FAMOTIDINE 20 MG (PEPCID) TABLET PO SCH (20:34)
[2018-10-03] MEDS: ATORVASTATIN 40 MG (LIPITOR) TABLET PO SCH (20:34)
[2018-10-03] MEDS: GABAPENTIN 400 MG (NEURONTIN) CAP PO SCH (20:34)
[2018-10-04] VITALS (18 sets, daily range): BP systolic 102–150; BP diastolic 59–97
[2018-10-04 00:11] LABS: BUN/CREATININE RATIO 14; CALCIUM 8.3 MG/DL (8.5-10.1); CARBON DIOXIDE 17 MMOL/L (21-32); CHLORIDE 108 MMOL/L (98-107); CREATININE SERUM 0.84 MG/DL (0.60-1.30); GFR ESTIMATED > 60; GLUCOSE 201 MG/DL (70-105); POTASSIUM 3.6 MMOL/L (3.6-5.0); SODIUM 133 MMOL/L (135-145)
[2018-10-04] MEDS: oxyCODONE/APAP 10/325MG (PERCOCET 10) TABLET PO PRN ×6 (00:37→20:52)
[2018-10-04] MEDS: POTASSIUM CL 10MEQ/50ML IVPB 50 ML IV SCH ×12 (00:42→23:45)
[2018-10-04] MEDS: 1/2 NS IV SOLUTION 1,000 ML IV SCH ×6 (03:14→23:46)
[2018-10-04 03:24] LABS: BASOPHILS # (AUTO) 0.1 10^3/uL (0.0-0.1); BASOPHILS % (AUTO) 1 % (0-10); EOSINOPHILS # (AUTO) 0.6 10^3/uL (0.0-0.3); EOSINOPHILS % (AUTO) 4 % (0-10); HEMATOCRIT 29 % (35-52); HEMOGLOBIN 10.1 G/DL (11.5-16.0); LYMPHOCYTES # (AUTO) 5.5 X 10^3 (1.0-4.0); LYMPHOCYTES % (AUTO) 40 % (12-44); MEAN CORPUSCULAR HEMOGLOBIN 31 PG (25-34); MEAN CORPUSCULAR HGB CONC 35 G/DL (32-36); MEAN CORPUSCULAR VOLUME 89 FL (80-99); MEAN PLATELET VOLUME 9.9 FL (7.4-10.4); MONOCYTES # (AUTO) 0.8 X 10^3 (0.0-1.0); MONOCYTES % (AUTO) 6 % (0-12); NEUTROPHILS # (AUTO) 6.7 X 10^3 (1.8-7.8); NEUTROPHILS % (AUTO) 49 % (42-75); PLATELET COUNT 313 10^3/uL (130-400); RED BLOOD COUNT 3.23 10^6/uL (4.35-5.85); RED CELL DISTRIBUTION WIDTH 13.1 % (10.0-14.5); WHITE BLOOD COUNT 13.7 10^3/uL (4.3-11.0)
[2018-10-04 03:41] LABS: BUN/CREATININE RATIO 13; CALCIUM 8.1 MG/DL (8.5-10.1); CARBON DIOXIDE 17 MMOL/L (21-32); CHLORIDE 107 MMOL/L (98-107); CREATININE SERUM 0.84 MG/DL (0.60-1.30); GFR ESTIMATED > 60; GLUCOSE 271 MG/DL (70-105); MAGNESIUM 1.2 MG/DL (1.8-2.4); PHOSPHORUS 2.5 MG/DL (2.3-4.7); POTASSIUM 3.8 MMOL/L (3.6-5.0); SODIUM 131 MMOL/L (135-145)
[2018-10-04 05:10] LABS: EOSINOPHILS % (MANUAL) 4 %; LYMPHOCYTES % (MANUAL) 37 %; MONOCYTES % (MANUAL) 5 %; NEUTROPHILS % (MANUAL) 54 %
[2018-10-04] MEDS ORDERED: MAGNESIUM 1 GM/100 ML IVPB 400 ML IV ONE (06:02)
[2018-10-04] MEDS: MAGNESIUM 1 GM/100 ML IVPB 100 ML IV SCH ×4 (06:16→08:13)
[2018-10-04] MEDS: D5 1/2 NS 1000 ML IV SOLUTION 1,000 ML IV SCH ×5 (06:16→23:45)
[2018-10-04] MEDS: PANTOPRAZOLE 20 MG TABLET (PROTONIX) PO SCH (06:16)
[2018-10-04] MEDS: KCL 20 MEQ TAB (K-DUR) PO SCH (07:59)
[2018-10-04] MEDS: fluCOnazole (DIFLUCAN) 100 MG TAB PO SCH (08:11)
[2018-10-04] MEDS: ASPIRIN E.C. 81 MG (ECOTRIN) TAB PO SCH (08:11)
[2018-10-04] MEDS: amLODIPine 10 MG (NORVASC) TAB PO SCH (08:11)
[2018-10-04] MEDS: FAMOTIDINE 20 MG (PEPCID) TABLET PO SCH ×2 (08:11→20:51)
--- NOTE | 2018-10-04 08:36 | Diagnostic Imaging Report ---
INDICATION: Dyspnea. COMPARISON: 09/26/2018. FINDINGS: Stable right IJ central Port-A-Cath. Visualized lungs are clear. Posterior lower lobes are poorly evaluated by portable radiography. No pleural effusion or pneumothorax. Normal cardiomediastinal silhouette. Stable ACDF changes in the cervical spine. IMPRESSION: No acute cardiopulmonary process by portable radiography. Dictated by: Dictated on workstation # [id number]
[2018-10-04] MEDS ORDERED: [UNRECOGNIZED DRUG - CODE] PO (10:11)
[2018-10-04] MEDS ORDERED: FLUC100T6 PO (10:11)
--- NOTE | 2018-10-04 10:13 | Progress Note (SOAP) ---
Subjective Subjective/Events-last exam Afebrile. States she is feeling a little better. Review of Systems Date Seen by Provider: Oct 04, 2018 Time Seen by Provider: 07:45 Objective Exam Last Set of Vital Signs Vital Signs Date Time Temp Pulse Resp B/P (MAP) Pulse Ox O2 Delivery O2 Flow Rate FiO2 10/04/18 08:10 Room Air 10/04/18 08:00 98.0 10/04/18 07:00 75 10/04/18 06:00 20 102/68 (79) 95 Capillary Refill : Less Than 3 Seconds I&O Intake and Output 10/04/18 00:00 Intake Total 2510 ml Balance 2510 ml Intake Oral 260 ml IV Total 2250 ml # Voids 3 # Bowel Movements 2 Daily Weight Change No General: Alert, No Acute Distress Lungs: Clear to Auscultation, Normal Air Movement Heart: Regular Rate, No Murmurs Abdomen: Normal Bowel Sounds, Soft, No Tenderness Extremities: No Edema Psych/Mental Status: Mental Status NL Results/Procedures Lab Laboratory Tests 10/03/18 12:48: White Blood Count 9.8, Red Blood Count 3.79L, Hemoglobin 11.9, Hematocrit 33L, Mean Corpuscular Volume 88, Mean Corpuscular Hemoglobin 31, Mean Corpuscular Hemoglobin Concent 36, Red Cell Distribution Width 13.1, Platelet Count 361, Mean Platelet Volume 10.5H, Neutrophils (%) (Auto) 60, Lymphocytes (%) (Auto) 28 , Monocytes (%) (Auto) 9, Eosinophils (%) (Auto) 2, Basophils (%) (Auto) 1, Neutrophils # (Auto) 5.9, Lymphocytes # (Auto) 2.8, Monocytes # (Auto) 0.9, Eosinophils # (Auto) 0.2, Basophils # (Auto) 0.1, Sodium Level 119*L, Potassium Level 5.0, Chloride Level 90L, Carbon Dioxide Level 17L, Anion Gap 12, Blood Urea Nitrogen 20H, Creatinine 1.40H, Estimat Glomerular Filtration Rate 38, BUN/ Creatinine Ratio 14, Glucose Level 1017*H, Glucometer > 600*H, Calcium Level 8.8 , Corrected Calcium 9.0, Total Bilirubin 0.5, Aspartate Amino Transf (AST/SGOT) 7, Alanine Aminotransferase (ALT/SGPT) 13, Alkaline Phosphatase 62, Total Protein 6.6, Albumin 3.8, Beta-Hydroxybutyrate (Chem panel) 0.06, Urine Opiates Screen NEGATIVE, Urine Oxycodone Screen NEGATIVE, Urine Methadone Screen NEGATIVE, Urine Propoxyphene Screen NEGATIVE, Urine Barbiturates Screen NEGATIVE , Ur Tricyclic Antidepressants Screen NEGATIVE, Urine Phencyclidine Screen NEGATIVE, Urine Amphetamines Screen NEGATIVE, Urine Methamphetamines Screen NEGATIVE, Urine Benzodiazepines Screen NEGATIVE, Urine Cocaine Screen NEGATIVE, Urine Cannabinoids Screen NEGATIVE 10/03/18 13:11: Urine Color YELLOW, Urine Clarity CLEAR, Urine pH 6, Urine Specific [place] 1.010L, Urine Protein 1+H, Urine Glucose (UA) 4+H, Urine Ketones NEGATIVE, Urine Nitrite NEGATIVE, Urine Bilirubin NEGATIVE, Urine Urobilinogen NORMAL, Urine Leukocyte Esterase NEGATIVE, Urine RBC (Auto) NEGATIVE, Urine RBC NONE, Urine WBC RARE, Urine Squamous Epithelial Cells 2-5, Urine Crystals NONE, Urine Bacteria NEGATIVE, Urine Casts NONE, Urine Mucus NEGATIVE, Urine Culture Indicated NO 10/03/18 14:48: Glucometer > 600*H 10/03/18 15:05: Glucose Level 684*H 10/03/18 16:34: Glucometer 354H 10/03/18 18:01: Glucometer 194H 10/03/18 19:32: Glucometer 332H 10/03/18 20:32: Glucometer 347H 10/03/18 21:28: Glucometer 266H 10/03/18 22:40: Glucometer 272H 10/03/18 23:31: Glucometer 265H 10/03/18 23:50: Sodium Level 133L, Potassium Level 3.6, Chloride Level 108H, Carbon Dioxide Level 17L, Anion Gap 8, Blood Urea Nitrogen 12, Creatinine 0.84, Estimat Glomerular Filtration Rate > 60, BUN/Creatinine Ratio 14, Glucose Level 201H, Calcium Level 8.3L 10/04/18 00:31: Glucometer 181H 10/04/18 01:04: Glucometer 136H 10/04/18 02:05: Glucometer 227H 10/04/18 03:08: Glucometer 280H 10/04/18 03:17: White Blood Count 13.7H, Red Blood Count 3.23L, Hemoglobin 10.1L, Hematocrit 29L , Mean Corpuscular Volume 89, Mean Corpuscular Hemoglobin 31, Mean Corpuscular Hemoglobin Concent 35, Red Cell Distribution Width 13.1, Platelet Count 313, Mean Platelet Volume 9.9, Neutrophils (%) (Auto) 49, Lymphocytes (%) (Auto) 40, Monocytes (%) (Auto) 6, Eosinophils (%) (Auto) 4, Basophils (%) (Auto) 1, Neutrophils # (Auto) 6.7, Lymphocytes # (Auto) 5.5H, Monocytes # (Auto) 0.8, Eosinophils # (Auto) 0.6H, Basophils # (Auto) 0.1, Neutrophils % (Manual) 54, Lymphocytes % (Manual) 37, Monocytes % (Manual) 5, Eosinophils % (Manual) 4, Sodium Level 131L, Potassium Level 3.8, Chloride Level 107, Carbon Dioxide Level 17L, Anion Gap 7, Blood Urea Nitrogen 11, Creatinine 0.84, Estimat Glomerular Filtration Rate > 60, BUN/Creatinine Ratio 13, Glucose Level 271H, Calcium Level 8.1L, Phosphorus Level 2.5, Magnesium Level 1.2L 10/04/18 04:08: Glucometer 262H 10/04/18 05:03: Glucometer 248H 10/04/18 06:06: Glucometer 213H 10/04/18 07:05: Glucometer 187H 10/04/18 08:16: Glucometer 233H 10/04/18 09:33: Glucometer 276H Assessment/Plan Assessment/Plan (1) Hyperglycemia Status: Acute Assessment & Plan: R/O hyperosmolar hyperglycemic state- calculated osmolality 301, typical for HH state is over 350. Started on insulin drip per DKA protocol. 10/04- still requiring as much as 8 units per hour this am, will continue drip through lunch and possibly d/c and switch to injections- anticipate may need as much as double her home long-acting home dose given she has already needed over 40 units in about 16 hours on the drip. (2) Hyponatremia Status: Acute Assessment & Plan: Pseudohyponatremia- corrected for glucose, Na is 141. Improving with improved glucose. (3) Acute renal insufficiency Status: Resolved Assessment & Plan: Due to dehydration/hyperglycemia. IVF per DKA protocol. (4) Chronic back pain Status: Chronic Assessment & Plan: Resume home medications (5) IDDM (insulin dependent diabetes mellitus) Status: Chronic Assessment & Plan: Hold home meds while on insulin drip. (6) Peripheral neuropathy Status: Chronic Assessment & Plan: Resume home gabapentin (7) Intractable nausea and vomiting Status: Chronic Assessment & Plan: With multiple admissions, multiple reported allergies and adverse affects to multiple medications, reported history of normal GET. Resume home phenergan suppositories. 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 (9) Hypomagnesemia Status: Acute Assessment & Plan: Replace and recheck (10) DVT prophylaxis Status: Acute Assessment & Plan: Enoxaparin Clinical Quality Measures DVT/VTE Risk/Contraindication: Risk Factor Score Per Nursin RFS Level Per Nursing on Admit: 1=Low/No VTE PPX TABATHA COVARRUBIAS MD Oct 04, 2018 10:13 am
[2018-10-04] MEDS: ENOXAPARIN 40 MG/0.4 ML (LOVENOX) SYR SC SCH (17:05)
[2018-10-04] MEDS: ATORVASTATIN 40 MG (LIPITOR) TABLET PO SCH (20:51)
[2018-10-04] MEDS: GABAPENTIN 400 MG (NEURONTIN) CAP PO SCH (20:51)
[2018-10-05] VITALS (11 sets, daily range): BP systolic 100–167; BP diastolic 49–92
[2018-10-05] MEDS: oxyCODONE/APAP 10/325MG (PERCOCET 10) TABLET PO PRN ×6 (00:48→21:51)
[2018-10-05] MEDS: POTASSIUM CL 10MEQ/50ML IVPB 50 ML IV SCH ×5 (01:48→08:09)
[2018-10-05] MEDS: 1/2 NS IV SOLUTION 1,000 ML IV SCH ×2 (02:35→06:35)
[2018-10-05 03:40] LABS: BASOPHILS # (AUTO) 0.1 10^3/uL (0.0-0.1); BASOPHILS % (AUTO) 1 % (0-10); EOSINOPHILS # (AUTO) 0.6 10^3/uL (0.0-0.3); EOSINOPHILS % (AUTO) 6 % (0-10); HEMATOCRIT 29 % (35-52); HEMOGLOBIN 9.8 G/DL (11.5-16.0); LYMPHOCYTES # (AUTO) 3.3 X 10^3 (1.0-4.0); LYMPHOCYTES % (AUTO) 29 % (12-44); MEAN CORPUSCULAR HEMOGLOBIN 31 PG (25-34); MEAN CORPUSCULAR HGB CONC 34 G/DL (32-36); MEAN CORPUSCULAR VOLUME 91 FL (80-99); MEAN PLATELET VOLUME 10.1 FL (7.4-10.4); MONOCYTES % (AUTO) 9 % (0-12); NEUTROPHILS # (AUTO) 6.2 X 10^3 (1.8-7.8); NEUTROPHILS % (AUTO) 56 % (42-75); PLATELET COUNT 286 10^3/uL (130-400); RED BLOOD COUNT 3.16 10^6/uL (4.35-5.85); RED CELL DISTRIBUTION WIDTH 13.8 % (10.0-14.5); WHITE BLOOD COUNT 11.2 10^3/uL (4.3-11.0)
[2018-10-05 03:58] LABS: BUN/CREATININE RATIO 9; CALCIUM 7.5 MG/DL (8.5-10.1); CARBON DIOXIDE 16 MMOL/L (21-32); CHLORIDE 112 MMOL/L (98-107); CREATININE SERUM 0.79 MG/DL (0.60-1.30); GFR ESTIMATED > 60; GLUCOSE 135 MG/DL (70-105); MAGNESIUM 1.8 MG/DL (1.8-2.4); PHOSPHORUS 2.3 MG/DL (2.3-4.7); POTASSIUM 4.4 MMOL/L (3.6-5.0); SODIUM 132 MMOL/L (135-145)
[2018-10-05] MEDS: D5 1/2 NS 1000 ML IV SOLUTION 1,000 ML IV SCH ×2 (03:59→08:09)
[2018-10-05] MEDS: KCL 20 MEQ TAB (K-DUR) PO SCH (04:25)
[2018-10-05] MEDS: MAGNESIUM 1 GM/100 ML IVPB 100 ML IV SCH (04:25)
[2018-10-05] MEDS: PANTOPRAZOLE 20 MG TABLET (PROTONIX) PO SCH (05:14)
[2018-10-05] MEDS: ASPIRIN E.C. 81 MG (ECOTRIN) TAB PO SCH (09:39)
[2018-10-05] MEDS: FAMOTIDINE 20 MG (PEPCID) TABLET PO SCH ×2 (09:39→20:52)
[2018-10-05] MEDS: amLODIPine 10 MG (NORVASC) TAB PO SCH (09:39)
[2018-10-05] MEDS: fluCOnazole (DIFLUCAN) 100 MG TAB PO SCH (09:39)
[2018-10-05] MEDS: inSUlin DETERMIR 1 UNIT/0.01 ML (LEVEMIR) CHARGE PER UNIT SQ SCH ×2 (09:39→20:52)
--- NOTE | 2018-10-05 09:58 | Diagnostic Imaging Report ---
Clinical indication: Patient with acute renal failure, HHNK, ICU care management. Exam: Portable chest x-ray, upright view. Comparison: Portable chest x-ray, upright view dated 10/04/2018. Findings: Again seen is a right IJ central line with tip in the distal superior vena cava. The lungs are clear with no lung infiltrate. There is no pleural effusion or pneumothorax. Pulmonary vasculature and cardiac silhouette are within normal limits. The remainder of this exam shows no significant interval change compared to the prior study of comparison. Impression: Stable chest x-ray exam with no radiographic evidence of acute cardiopulmonary process. Dictated by: Dictated on workstation # [id number]
[2018-10-05] MEDS: inSUlin ASPART (NovoLOG) 1 UNIT/0.01 ML (CHARGE PER UNIT) SC SCH ×2 (12:04→17:27)
[2018-10-05] MEDS ORDERED: FLU QUADRIvalent (5+ YOA) 2018-2019 (AFLURIA) 0.5 ML IM ONE (14:09)
--- NOTE | 2018-10-05 14:15 | Progress Note (SOAP) ---
Subjective Subjective/Events-last exam Afebrile, no acute events. Feeling a little better. Is anxious and depressed due to difficult situation with son. Having trouble sleeping. Has tried trazodone in past which stopped helping. Had side effects with Lunesta. Review of Systems Date Seen by Provider: Oct 05, 2018 Time Seen by Provider: 10:45 Objective Exam Last Set of Vital Signs Vital Signs Date Time Temp Pulse Resp B/P (MAP) Pulse Ox O2 Delivery O2 Flow Rate FiO2 10/05/18 11:20 97.5 Room Air 10/05/18 11:00 72 14 107/83 (91) 98 Capillary Refill : Less Than 3 Seconds I&O Intake and Output 10/05/18 00:00 Intake Total 5702 ml Balance 5702 ml Intake Oral 1400 ml IV Total 4302 ml # Voids 7 General: Alert, No Acute Distress Lungs: Clear to Auscultation, Normal Air Movement Heart: Regular Rate, No Murmurs Extremities: No Edema Neuro: Normal Speech Results/Procedures Lab Laboratory Tests 10/04/18 14:40: Glucometer 195H 10/04/18 16:17: Glucometer 192H 10/04/18 17:20: Glucometer 165H 10/04/18 18:48: Glucometer 140H 10/04/18 19:45: Glucometer 127H 10/04/18 20:47: Glucometer 143H 10/04/18 21:44: Glucometer 201H 10/04/18 22:47: Glucometer 169H 10/04/18 23:49: Glucometer 160H 10/05/18 00:49: Glucometer 157H 10/05/18 01:45: Glucometer 150H 10/05/18 02:58: Glucometer 162H 10/05/18 03:20: White Blood Count 11.2H, Red Blood Count 3.16L, Hemoglobin 9.8L, Hematocrit 29L , Mean Corpuscular Volume 91, Mean Corpuscular Hemoglobin 31, Mean Corpuscular Hemoglobin Concent 34, Red Cell Distribution Width 13.8, Platelet Count 286, Mean Platelet Volume 10.1, Neutrophils (%) (Auto) 56, Lymphocytes (%) (Auto) 29 , Monocytes (%) (Auto) 9, Eosinophils (%) (Auto) 6, Basophils (%) (Auto) 1, Neutrophils # (Auto) 6.2, Lymphocytes # (Auto) 3.3, Monocytes # (Auto) 1.0, Eosinophils # (Auto) 0.6H, Basophils # (Auto) 0.1, Sodium Level 132L, Potassium Level 4.4, Chloride Level 112H, Carbon Dioxide Level 16L, Anion Gap 4L, Blood Urea Nitrogen 7, Creatinine 0.79, Estimat Glomerular Filtration Rate > 60, BUN/ Creatinine Ratio 9, Glucose Level 135H, Calcium Level 7.5L, Phosphorus Level 2.3 , Magnesium Level 1.8 10/05/18 03:44: Glucometer 141H 10/05/18 04:52: Glucometer 173H 10/05/18 05:50: Glucometer 137H 10/05/18 06:43: Glucometer 131H 10/05/18 07:48: Glucometer 132H 10/05/18 08:47: Glucometer 125H 10/05/18 09:48: Glucometer 142H 10/05/18 11:21: Glucometer 201H Assessment/Plan Assessment/Plan (1) Hyperglycemia Status: Acute Assessment & Plan: R/O hyperosmolar hyperglycemic state- calculated osmolality 301, typical for HH state is over 350. Started on insulin drip per DKA protocol. 10/04- still requiring as much as 8 units per hour this am, will continue drip through lunch and possibly d/c and switch to injections- anticipate may need as much as double her home long-acting home dose given she has already needed over 40 units in about 16 hours on the drip. 10/05- required 122 units in 24 hours- will resume home 40 units of levemir but divide twice daily given history of hypoglycemia last admit when resuming levemir. Total dose would be 27 units with meals, will start at 20 and increase as needed. Transfer to floor if sugar okay after lunch. (2) Hyponatremia Status: Acute Assessment & Plan: Pseudohyponatremia- corrected for glucose, Na is 141. Improving with improved glucose. (3) Acute renal insufficiency Status: Resolved Assessment & Plan: Due to dehydration/hyperglycemia. IVF per DKA protocol. (4) Chronic back pain Status: Chronic Assessment & Plan: Resume home medications (5) IDDM (insulin dependent diabetes mellitus) Status: Chronic Assessment & Plan: Hold home meds while on insulin drip. 10/05 see hyperglycemia (6) Peripheral neuropathy Status: Chronic Assessment & Plan: Resume home gabapentin (7) Intractable nausea and vomiting Status: Chronic Assessment & Plan: With multiple admissions, multiple reported allergies and adverse affects to multiple medications, reported history of normal GET. Resume home phenergan suppositories. (8) Candidal esophagitis Status: Acute Assessment & Plan: Did not bulk picker medication for treatment after last hospitalization, will restart. (9) Hypomagnesemia Status: Resolved Assessment & Plan: Replace and recheck (10) Depression Status: Acute Assessment & Plan: Will start mirtazapine for dual effect for depression and insomnia. Qualifiers: Qualified Codes: F32.1 - Major depressive disorder, single episode, moderate (11) Insomnia Status: Chronic (12) DVT prophylaxis Status: Acute Assessment & Plan: Enoxaparin Clinical Quality Measures DVT/VTE Risk/Contraindication: Risk Factor Score Per Nursin RFS Level Per Nursing on Admit: 1=Low/No VTE PPX TABATHA COVARRUBIAS MD Oct 05, 2018 2:15 pm
[2018-10-05] MEDS: ENOXAPARIN 40 MG/0.4 ML (LOVENOX) SYR SC SCH (17:27)
[2018-10-05] MEDS: ATORVASTATIN 40 MG (LIPITOR) TABLET PO SCH (20:52)
[2018-10-05] MEDS: GABAPENTIN 400 MG (NEURONTIN) CAP PO SCH (20:52)
[2018-10-05] MEDS ORDERED: diphenhydrAMINE 25 MG TAB (BENADRYL) PO ONE (22:09)
[2018-10-05] MEDS ORDERED: diphenhydrAMINE 25 MG TAB (BENADRYL) PO PRN (22:15)
[2018-10-06] VITALS: BP 109/58
[2018-10-06] MEDS: oxyCODONE/APAP 10/325MG (PERCOCET 10) TABLET PO PRN ×3 (01:59→10:31)
[2018-10-06 04:36] VITALS: BP 125/80
[2018-10-06] MEDS: inSUlin ASPART (NovoLOG) 1 UNIT/0.01 ML (CHARGE PER UNIT) SC SCH ×4 (06:13→11:34)
[2018-10-06] MEDS: PANTOPRAZOLE 20 MG TABLET (PROTONIX) PO SCH (06:14)
[2018-10-06 06:32] LABS: BASOPHILS # (AUTO) 0.1 10^3/uL (0.0-0.1); BASOPHILS % (AUTO) 1 % (0-10); EOSINOPHILS # (AUTO) 0.7 10^3/uL (0.0-0.3); EOSINOPHILS % (AUTO) 6 % (0-10); HEMATOCRIT 31 % (35-52); HEMOGLOBIN 10.1 G/DL (11.5-16.0); LYMPHOCYTES # (AUTO) 3.1 X 10^3 (1.0-4.0); LYMPHOCYTES % (AUTO) 28 % (12-44); MEAN CORPUSCULAR HEMOGLOBIN 31 PG (25-34); MEAN CORPUSCULAR HGB CONC 33 G/DL (32-36); MEAN CORPUSCULAR VOLUME 92 FL (80-99); MONOCYTES # (AUTO) 0.8 X 10^3 (0.0-1.0); MONOCYTES % (AUTO) 8 % (0-12); NEUTROPHILS # (AUTO) 6.4 X 10^3 (1.8-7.8); NEUTROPHILS % (AUTO) 58 % (42-75); PLATELET COUNT 295 10^3/uL (130-400); RED BLOOD COUNT 3.31 10^6/uL (4.35-5.85); RED CELL DISTRIBUTION WIDTH 14.2 % (10.0-14.5); WHITE BLOOD COUNT 11.1 10^3/uL (4.3-11.0)
[2018-10-06 07:25] LABS: CALCIUM 8.7 MG/DL (8.5-10.1); CREATININE SERUM 1.01 MG/DL (0.60-1.30); POTASSIUM 5.3 MMOL/L (3.6-5.0)
--- NOTE | 2018-10-06 07:53 | Physician Query Clarification ---
PQ-Uncertain Diagnosis Admission/Discharge Admission Date: Oct 03, 2018 at 13:35 Discharge Date: The medical record reflects the following clinical scenario: History/Risk Factors: Diabetes type 2 Clinical Findings: Presented to clinic with nausea and vomiting and found to have unreadable high blood sugar. In ER glucose over 1000. Treatment: Started on Insulin drip per DKA protocol. Question: Is Diabetes type 2 with ketoacidosis a clinically valid diagnosis? Diabetes type 2 with ketoacidosis was documented in the ED record-Neville Marquez APRN with no further documentation in the medical record. Please document a response below. PHYSICIAN RESPONSE Diagnosis clinically valid: No, conditon ruled out Explanation of clincal finding DKA defined by hyperglycemia, metabolic high anion gap acidosis and ketonemia. Patient without ketones in urine or blood, no increased anion gap. In responding to this query, please exercise your independent professional judgment. The purpose of this communication is to more accurately reflect the complexity of your patients condition. The fact that a question is asked does not imply that any particular answer is desired or expected. Thank you for your timely response to this clarification. Requestors name: Azul Alfaro [facility] Phone # [phone] or [phone] THIS PHYSICIAN QUERY FORM IS A PERMANENT PART OF THE MEDICAL RECORD AZUL ALFARO Oct 06, 2018 07:53 TABATHA COVARRUBIAS MD Oct 06, 2018 21:25
[2018-10-06 08:00] VITALS: BP 111/55
[2018-10-06] MEDS: inSUlin DETERMIR 1 UNIT/0.01 ML (LEVEMIR) CHARGE PER UNIT SQ SCH (08:29)
[2018-10-06] MEDS: ASPIRIN E.C. 81 MG (ECOTRIN) TAB PO SCH (08:30)
[2018-10-06] MEDS: amLODIPine 10 MG (NORVASC) TAB PO SCH (08:30)
[2018-10-06] MEDS: fluCOnazole (DIFLUCAN) 100 MG TAB PO SCH (08:30)
[2018-10-06] MEDS: FAMOTIDINE 20 MG (PEPCID) TABLET PO SCH (08:30)
[2018-10-06] MEDS ORDERED: INSU100I23 SQ (09:40)
[2018-10-06] MEDS ORDERED: MIRT15TA8 PO (09:40)
[2018-10-06] MEDS ORDERED: INSU100I29 SQ (09:40)
--- NOTE | 2018-10-06 09:47 | Discharge Instructions ---
Discharge [facility] Discharge Medications New, Converted or Re-Newed RX: Transmitted to Pharmacy (no new script for insulin just change in dose) New Medications: Mirtazapine (Mirtazapine) 15 Mg Tab.rapdis 15 MG PO HS, #30 TAB 0 Refills Changed Medications: Insulin Detemir (Levemir Flextouch) 100 Unit/1 Ml Insuln.pen 20 UNITS SQ BID for 1 Day, EA (Changed from: 40 UNITS; HS) Insulin Lispro (Humalog Kwikpen) 100 Unit/1 Ml Insuln.pen 20 UNIT SQ AC for SLIDING SCALE, #1 EA (Changed from: Removed Instructions) Continued Medications: Amlodipine Besylate (Amlodipine Besylate) 10 Mg Tablet 10 MG PO DAILY, #30 TAB 0 Refills Aspirin (Aspirin EC) 81 Mg Tablet.dr 81 MG PO DAILY, TAB Atorvastatin Calcium (Atorvastatin Calcium) 40 Mg Tablet 40 MG PO HS, TAB Erythromycin Ethylsuccinate (Erythromycin Ethylsuccinate) 400 Mg Tablet 400 MG PO TID for 30 Days, TAB FILLED #90 TABLETS 09-29-18 HOWEVER HAS NOT PICKED UP YET OF 10-04-18 Fluconazole (Fluconazole) 100 Mg Tablet PO UD for 14 Days, TAB TAKES 2 (100MG) TABLETS DAY 1 THEN TAKE 1 (100MG) TABLET DAYS 2-14 FILLED #15 TABS 09-29-18 HOWEVER NOT PICKED UP YET OF 10-04-18 Gabapentin (Gabapentin) 800 Mg Tablet 1600 MG PO HS, TAB TAKES 2 (800MG) TABLETS Gabapentin (Gabapentin) 800 Mg Tablet 800 MG PO DAILY PRN for NERVE PAIN, TAB Linagliptin (Tradjenta) 5 Mg Tablet 5 MG PO DAILY, TAB Omeprazole (Omeprazole) 20 Mg Capsule.dr 20 MG PO DAILY, CAP Oxycodone HCl (Oxycodone HCl) 10 Mg Tablet 10 MG PO DAILY, TAB Oxycodone HCl/Acetaminophen (Oxycodone-Acetaminophen 10-325) 1 Each Tablet 1 TAB PO Q4H PRN for PAIN-MODERATE, TAB MAX OF 5 TABLETS PER DAY Patient Instructions Goal/Follow Up Appt: Follow up at [facility] with Tia Jackson APRN on 10/14 at 1140 am. Transportation will pick you up at 11:15 am. Patient Instructions: applications support lead the diflucan and erythromycin prescribed by Dr. Rubin. Return to The Hospital For: Uncontrolled hyperglycemia, inability to keep down liquids. Activity & Diet Discharge Diet: ADA Diet Activity as Tolerated: Yes Orders-Post D/C & Referrals Pneu Vac Indicated: Yes Copy Copies To 1: MARY JO Pugh BETHANY N MD Oct 06, 2018 9:41 am
--- NOTE | 2018-10-06 10:26 | D/C HH Face to Face Order ---
D/C Face to Face Orders Instructions for Patient Via [facility], Patient Instructions/FollowUp: Follow up with Tia Jackson APRN at [facility] on 10/14 at 1140 am. Transportation will pick you up at 1115 am. Physician to follow Patient: Tia Jackson APRN Discharge Diet for Home: ADA Diet Patient Problems: Diabetes mellitus type 2 Anxiety/Depression Candidal esophagitis Goals for Patient: Maintain normoglycemia. Mood stabilization. Patient Data-Allergies,Ht & Wt Patient Allergies: Coded Allergies: ketorolac (Verified Allergy, Severe, ANAPHYLAXIS, PT TAKES ASA AT HOME, ) ondansetron (Verified Allergy, Intermediate, RASH, 07/19/14) RASH/ HIVES exenatide (Verified Allergy, Unknown, NAUSEA, 07/19/14) NON STOP VOMITING latex (Verified Allergy, Unknown, RASH, 07/19/14) metoclopramide (Verified Allergy, Unknown, RESTLESS LEGS, 07/19/14) Height (Feet): 5 Height (Inches): 0.00 Weight (Pounds): 161 Weight (Ounces): 8.0 Home Health Need/Face to Face Date of Face to Face: Oct 06, 2018 Clinical Findings: Other-list in note (Difficulty managing medications/insulin , recurrent hospitalization) I have seen Pt [id number]: Yes Discharged To: Home Diagnosis/Conditions: See patient problems Patient is Homebound due to: CognItive deficits Anxiety Homebound Status Due to the above stated illness, injury or surgical procedure (medical condition or diagnosis) and associated clinical findings, the patient is homebound because of his/her inability to leave home except with aid of a supportive device and/or person AND leaving the home requires a considerable and taxing effort or is medically contraindicated. Pt req the following assistanc: Aid of another person Home Health Nursing Orders Home Health Services Order: Nursing Services, Other (Psychiatric nursing services) Home Health Infusion Therapy Line Type: [place] Therapy Orders Therapy Specific Orders: Teach strategies/cognitive deficits Certify Stmt I certify that this patient is under my care and that I, a nurse practitioner or a physician; a child center assistant working with me, had a face to face encounter that - meets the physician face to face encounter requirements with this patient as dated. TABATHA COVARRUBIAS MD Oct 06, 2018 10:26 am
[2018-10-06] MEDS ORDERED: MIRTAZAPINE 15 MG (REMERON) TAB PO SCH (21:00)
--- NOTE | 2018-10-06 21:20 | Discharge Summary ---
Diagnosis/Chief Complaint Date of Admission Oct 03, 2018 at 13:35 Date of Discharge Oct 06, 2018 at 12:01 Admission Diagnosis Admission Diagnosis Hyperglycemia Acute renal insufficiency Discharge Diagnosis See problem list Problems/Diagnosis: (1) Hyperglycemia Assessment & Plan: R/O hyperosmolar hyperglycemic state- calculated osmolality 301, typical for HH state is over 350. Started on insulin drip per DKA protocol. 10/04- still requiring as much as 8 units per hour this am, will continue drip through lunch and possibly d/c and switch to injections- anticipate may need as much as double her home long-acting home dose given she has already needed over 40 units in about 16 hours on the drip. 10/05- required 122 units in 24 hours- will resume home 40 units of levemir but divide twice daily given history of hypoglycemia last admit when resuming levemir. Total dose would be 27 units with meals, will start at 20 and increase as needed. Transfer to floor if sugar okay after lunch. 10/06 blood sugar fairly well controlled on above regimen, continued on d/c Status: Acute (2) Hyponatremia Assessment & Plan: Pseudohyponatremia- corrected for glucose, Na is 141. Improving with improved glucose. Status: Acute (3) Acute renal insufficiency Assessment & Plan: Due to dehydration/hyperglycemia. IVF per DKA protocol. Status: Resolved Resolution Date/Time: 10/04/18 @ 10:12 (4) Chronic back pain Assessment & Plan: Resume home medications Status: Chronic (5) IDDM (insulin dependent diabetes mellitus) Assessment & Plan: Hold home meds while on insulin drip. 10/05 see hyperglycemia Status: Chronic (6) Peripheral neuropathy Assessment & Plan: Resume home gabapentin Status: Chronic (7) Intractable nausea and vomiting Assessment & Plan: With multiple admissions, multiple reported allergies and adverse affects to multiple medications, reported history of normal GET. Resume home phenergan suppositories. Status: Chronic (8) Candidal esophagitis Assessment & Plan: Did not pick up worker medication for treatment after last hospitalization, given during stay 10/06 recommended she pick up worker from pharmacy after d/c. Status: Acute (9) Hypomagnesemia Assessment & Plan: Replace and recheck Status: Resolved Resolution Date/Time: 10/05/18 @ 14:16 (10) Depression Assessment & Plan: Will start mirtazapine for dual effect for depression and insomnia. Qualifiers: Qualified Codes: F32.1 - Major depressive disorder, single episode, moderate Status: Acute (11) Insomnia Status: Chronic Chief Complaint/HPI Chief Complaint/HPI 58 yo female presented to clinic with nausea and vomiting and found to have unreadable high blood sugar. In ER glucose over [address]. She states she has taken 60 units of novolog today and is using 40 units of levemir daily. She says her blood sugar has been too high to read every morning for a week or so. She notes she had an EGD about a week ago and was told she had fungal infection and has not been able to pick up worker medication yet. Discharge Summary-Simple/Stand Consultations Discharge Physical Examination Allergies: Coded Allergies: ketorolac (Verified Allergy, Severe, ANAPHYLAXIS, PT TAKES ASA AT HOME, ) ondansetron (Verified Allergy, Intermediate, RASH, 07/19/14) RASH/ HIVES exenatide (Verified Allergy, Unknown, NAUSEA, 07/19/14) NON STOP VOMITING latex (Verified Allergy, Unknown, RASH, 07/19/14) metoclopramide (Verified Allergy, Unknown, RESTLESS LEGS, 07/19/14) Vitals & I&Os Vital Sign - Last 12Hours Date Time Temp Pulse Resp B/P (MAP) Pulse Ox O2 Delivery O2 Flow Rate FiO2 10/06/18 08:00 96 Room Air 10/06/18 08:00 98.0 104 18 111/55 (73) Intake and Output 10/06/18 00:00 Intake Total 1550 ml Output Total 300 ml Balance 1250 ml General Appearance: Alert, No Acute Distress Respiratory: Clear to Auscultation, Normal Air Movement Cardiovascular: Regular Rate, No Murmurs Neuro: Normal Gait, Normal Speech Psych/Mental Status: Mental Status NL Hospital Course See final discharge diagnosis. Labs Laboratory Tests Test 10/04/18 21:44 10/04/18 22:47 10/04/18 23:49 10/05/18 00:49 Range/Units Glucometer 201 H 169 H 160 H 157 H 70-110 MG/DL Test 10/05/18 01:45 10/05/18 02:58 10/05/18 03:20 10/05/18 03:44 Range/Units Glucometer 150 H 162 H 141 H 70-110 MG/DL White Blood Count 11.2 H 4.3-11.0 10^3/uL Red Blood Count 3.16 L 4.35-5.85 10^6/uL Hemoglobin 9.8 L 11.5-16.0 G/DL Hematocrit 29 L 35-52 % Mean Corpuscular Volume 91 80-99 FL Mean Corpuscular Hemoglobin 31 25-34 PG Mean Corpuscular Hemoglobin Concent 34 32-36 G/DL Red Cell Distribution Width 13.8 10.0-14.5 % Platelet Count 286 130-400 10^3/uL Mean Platelet Volume 10.1 7.4-10.4 FL Neutrophils (%) (Auto) 56 42-75 % Lymphocytes (%) (Auto) 29 12-44 % Monocytes (%) (Auto) 9 0-12 % Eosinophils (%) (Auto) 6 0-10 % Basophils (%) (Auto) 1 0-10 % Neutrophils # (Auto) 6.2 1.8-7.8 X 10^3 Lymphocytes # (Auto) 3.3 1.0-4.0 X 10^3 Monocytes # (Auto) 1.0 0.0-1.0 X 10^3 Eosinophils # (Auto) 0.6 H 0.0-0.3 10^3/uL Basophils # (Auto) 0.1 0.0-0.1 10^3/uL Sodium Level 132 L 135-145 MMOL/L Potassium Level 4.4 3.6-5.0 MMOL/L Chloride Level 112 H 98-107 MMOL/L Carbon Dioxide Level 16 L 21-32 MMOL/L Anion Gap 4 L 5-14 MMOL/L Blood Urea Nitrogen 7 7-18 MG/DL Creatinine 0.79 0.60-1.30 MG/DL Estimat Glomerular Filtration Rate > 60 BUN/Creatinine Ratio 9 Glucose Level 135 H 70-105 MG/DL Calcium Level 7.5 L 8.5-10.1 MG/DL Phosphorus Level 2.3 2.3-4.7 MG/DL Magnesium Level 1.8 1.8-2.4 MG/DL Test 10/05/18 04:52 10/05/18 05:50 10/05/18 06:43 10/05/18 07:48 Range/Units Glucometer 173 H 137 H 131 H 132 H 70-110 MG/DL Test 10/05/18 08:47 11/14/18 09:48 10/05/18 11:21 10/05/18 18:40 Range/Units Glucometer 125 H 142 H 201 H 126 H 70-110 MG/DL Test 10/05/18 20:51 10/06/18 00:36 10/06/18 06:05 10/06/18 06:18 Range/Units Glucometer 105 198 H 290 H 70-110 MG/DL White Blood Count 11.1 H 4.3-11.0 10^3/uL Red Blood Count 3.31 L 4.35-5.85 10^6/uL Hemoglobin 10.1 L 11.5-16.0 G/DL Hematocrit 31 L 35-52 % Mean Corpuscular Volume 92 80-99 FL Mean Corpuscular Hemoglobin 31 25-34 PG Mean Corpuscular Hemoglobin Concent 33 32-36 G/DL Red Cell Distribution Width 14.2 10.0-14.5 % Platelet Count 295 130-400 10^3/uL Mean Platelet Volume 10.0 7.4-10.4 FL Neutrophils (%) (Auto) 58 42-75 % Lymphocytes (%) (Auto) 28 12-44 % Monocytes (%) (Auto) 8 0-12 % Eosinophils (%) (Auto) 6 0-10 % Basophils (%) (Auto) 1 0-10 % Neutrophils # (Auto) 6.4 1.8-7.8 X 10^3 Lymphocytes # (Auto) 3.1 1.0-4.0 X 10^3 Monocytes # (Auto) 0.8 0.0-1.0 X 10^3 Eosinophils # (Auto) 0.7 H 0.0-0.3 10^3/uL Basophils # (Auto) 0.1 0.0-0.1 10^3/uL Sodium Level 131 L 135-145 MMOL/L Potassium Level 5.3 H 3.6-5.0 MMOL/L Chloride Level 107 98-107 MMOL/L Carbon Dioxide Level 16 L 21-32 MMOL/L Anion Gap 8 5-14 MMOL/L Blood Urea Nitrogen 11 7-18 MG/DL Creatinine 1.01 0.60-1.30 MG/DL Estimat Glomerular Filtration Rate 56 BUN/Creatinine Ratio 11 Glucose Level 297 H 70-105 MG/DL Calcium Level 8.7 8.5-10.1 MG/DL Test 10/06/18 11:05 Range/Units Glucometer 66 L 70-110 MG/DL Discharge Instructions to patient/family Please see electronic discharge instructions given to patient. Discharge Medications Reviewed and agree with Discharge Medication list on patient's Discharge Instruction sheet Clinical Quality Measures DVT/VTE Risk/Contraindication: Risk Factor Score Per Nursin RFS Level Per Nursing on Admit: 1=Low/No VTE PPX Copy Copies To 1: MARY JO Pugh BETHANY N MD Oct 06, 2018 21:20
[2018-10-07] MEDS ORDERED: LIDOCAINE 1% INJ 20 ML 20 ML VIAL ONE (13:09)
== END 2018-10-06 12:01 | disposition home health service (06) | DRG 638 ==
LOC: EDUNIT# 12:42 → ER 12:44 → ICU 13:35 → 4TH 10-05 15:35
PROVIDERS: ADMIT Family Medicine; ATTEND Family Medicine
DX: E11.65 Type 2 diabetes mellitus with hyperglycemia (principal); N28.9 Disorder of kidney and ureter, unspecified; E87.1 Hypo-osmolality and hyponatremia; B37.81 Candidal esophagitis; E86.0 Dehydration; I12.9 Hypertensive chronic kidney disease with stage 1 through stage 4 chronic kidney disease, or unspecified chronic kidney disease; N18.9 Chronic kidney disease, unspecified; E11.42 Type 2 diabetes mellitus with diabetic polyneuropathy; F32.1 Major depressive disorder, single episode, moderate; E11.43 Type 2 diabetes mellitus with diabetic autonomic (poly)neuropathy; I25.10 Atherosclerotic heart disease of native coronary artery without angina pectoris; E78.00 Pure hypercholesterolemia, unspecified; G47.30 Sleep apnea, unspecified; J30.2 Other seasonal allergic rhinitis; K21.9 Gastro-esophageal reflux disease without esophagitis; M79.7 Fibromyalgia; F41.9 Anxiety disorder, unspecified; G43.909 Migraine, unspecified, not intractable, without status migrainosus; K44.9 Diaphragmatic hernia without obstruction or gangrene; K58.9 Irritable bowel syndrome, unspecified; K57.90 Diverticulosis of intestine, part unspecified, without perforation or abscess without bleeding; L40.9 Psoriasis, unspecified; E83.42 Hypomagnesemia; G47.00 Insomnia, unspecified; Z95.5 Presence of coronary angioplasty implant and graft; Z87.891 Personal history of nicotine dependence; Z86.718 Personal history of other venous thrombosis and embolism; Z87.442 Personal history of urinary calculi; Z79.4 Long term (current) use of insulin
CPT/HCPCS: 36415; 71045; 80048; 80053; 80306; 81000; 82010; 82947; 82962; 83735; 84100; 85007; 85025; 85027; 90471; 90686; 96365; 96375

== ENCOUNTER 2018-11-23 10:21 | Inpatient (IN) | payer MEDICARE ==
[2018-11-23] VITALS (12 sets, daily range): BP systolic 98–149; BP diastolic 57–80
[~2018-11-23] VITALS: Ht 152.4 cm; Wt 63.5 kg
[~2018-11-23 10:21] MED LIST changes: +FLUC100T6 PO; +MIRT15TA8 PO; +[UNRECOGNIZED DRUG - CODE] PO
[2018-11-23] MEDS ORDERED: diphenhydrAMINE 50 MG/ML INJ (BENADRYL) IV STA (10:37)
--- NOTE | 2018-11-23 10:41 | ED Abdominal Pain ---
General Chief Complaint: Abdominal/GI Problems Stated Complaint: HIGH BLOOD SUGAR Source of Information: Patient Exam Limitations: No Limitations History of Present Illness Date Seen by Provider: Nov 23, 2018 Time Seen by Provider: 10:31 Initial Comments Here with report of high blood sugar. Apparently his been having nausea, vomiting and diarrhea for a week. She noted that her blood sugars were high last night so took 30 units of insulin. There is still has this morning so she took another 30 units of insulin and then started having vomiting again. She called EMS. EMS did access her port and started normal saline 1 L bolus. She did get Phenergan 25 mg IV. On arrival she asked for Benadryl. Does report taking her meds as directed otherwise. Timing/Duration: 1 Week, Getting Worse Severity/Quality: Moderate, Severe, Cramping Location: Generalized Abdomen Radiation: No Radiation Activities at Onset: None Modifying Factors: Worsens With Eating Associated Symptoms: No Back Pain, No Chest Pain, No Fever/Chills; Nausea/ Vomiting; No Shortness of Air, No Swelling/Mass in Abdomen; Weakness Allergies and Home Medications Allergies Coded Allergies: ketorolac (Verified Allergy, Severe, ANAPHYLAXIS, PT TAKES ASA AT HOME, ) ondansetron (Verified Allergy, Intermediate, RASH, 07/19/14) RASH/ HIVES exenatide (Verified Allergy, Unknown, NAUSEA, 07/19/14) NON STOP VOMITING latex (Verified Allergy, Unknown, RASH, 07/19/14) metoclopramide (Verified Allergy, Unknown, RESTLESS LEGS, 07/19/14) Home Medications Amlodipine Besylate 10 Mg Tablet, 10 MG PO DAILY Prescribed by: TABATHA COVARRUBIAS on 08/04/18 1106 Aspirin 81 Mg Tablet.dr, 81 MG PO DAILY, (Reported) Atorvastatin Calcium 40 Mg Tablet, 40 MG PO HS, (Reported) Erythromycin Ethylsuccinate 400 Mg Tablet, 400 MG PO TID, (Reported) FILLED #90 TABLETS 09-29-18 HOWEVER HAS NOT PICKED UP YET OF 10-04-18 Fluconazole 100 Mg Tablet, PO UD, (Reported) TAKES 2 (100MG) TABLETS DAY 1 THEN TAKE 1 (100MG) TABLET DAYS 2-14 FILLED # 15 TABS 09-29-18 HOWEVER NOT PICKED UP YET OF 10-04-18 Gabapentin 800 Mg Tablet, 1,600 MG PO HS, (Reported) TAKES 2 (800MG) TABLETS Gabapentin 800 Mg Tablet, 800 MG PO DAILY PRN for NERVE PAIN, (Reported) Insulin Detemir 100 Unit/1 Ml Insuln.pen, 20 UNITS SQ BID Prescribed by: TABATHA COVARRUBIAS on 10/06/18939 Insulin Lispro 100 Unit/1 Ml Insuln.pen, 20 UNIT SQ AC Prescribed by: TABATHA COVARRUBIAS on 10/06/18939 Linagliptin 5 Mg Tablet, 5 MG PO DAILY, (Reported) Mirtazapine 15 Mg Tab.rapdis, 15 MG PO HS Prescribed by: TABATHA COVARRUBIAS on 10/06/18939 Omeprazole 20 Mg Capsule.dr, 20 MG PO DAILY, (Reported) Oxycodone HCl 10 Mg Tablet, 10 MG PO DAILY, (Reported) Oxycodone HCl/Acetaminophen 1 Each Tablet, 1 TAB PO Q4H PRN for PAIN-MODERATE, ( Reported) MAX OF 5 TABLETS PER DAY Patient Home Medication List Home Medication List Reviewed: Yes Review of Systems Review of Systems Constitutional: see HPI; No chills, No fever EENTM: No Symptoms Reported Respiratory: No Symptoms Reported Cardiovascular: No Symptoms Reported Gastrointestinal: See HPI, Abdominal Pain, Diarrhea, Nausea, Vomiting Genitourinary: No Symptoms Reported Musculoskeletal: no symptoms reported Skin: no symptoms reported Psychiatric/Neurological: Anxiety, Emotional Problems All Other Systems Reviewed Negative Unless Noted: Yes Past Fntvrci-Sioonr-Tuqxwm Hx Past Med/Social Hx: Reviewed Nursing Past Med/Soc Hx Patient Social History Alcohol Use: Occasionally Uses Alcohol Beverage of Choice: Wine Recreational Drug Use: No Smoking Status: Former Smoker Type Used: Cigarettes Former Smoker, Quit: Nov 10, 2017 2nd Hand Smoke Exposure: No Recent Hopitalizations: Yes Immunizations Up To Date Tetanus Booster (TDap): Unknown PED Vaccines UTD: No Date of Pneumonia Vaccine: Dec 12, 2013 Date of Influenza Vaccine: Sep 07, 2017 Seasonal Allergies Seasonal Allergies: Yes Past Medical History Surgeries: Yes Cardiac, Coronary Stent, Ear Surgery, Gallbladder, Orthopedic, Renal Respiratory: Yes (HX OF TOBACCO USE--1 PPD, REPORTEDLY QUIT 11/2017) Chronic Bronchitis, Sleep Apnea Currently Using CPAP: No Currently Using BIPAP: No Cardiac: Yes (CARDIAC STENTS; DVT'S IN ARMS) Chronic Edema/Swelling, Coronary Artery Disease, Deep Vein Thrombosis, High Cholesterol, Hypertension Neurological: Yes (NEUROPATHY IN HANDS AND FEET) Headaches /Migraines, Neuropathy 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 Disorders: No 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 Disorders: Denies [employer] History: Menopausal Sexually Transmitted Disease: No HIV/AIDS: No Genitourinary: Yes Bladder Infection, Kidney Stones, Renal Failure Gastrointestinal: Yes Gastroesophageal Reflux, Diverticulosis, Hiatal Hernia, Irritable Bowel Musculoskeletal: Yes Degenerate Disk Disease, Fibromyalgia, Chronic Back Pain Endocrine: Yes Diabetes, Insulin dep HEENT: Yes (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; POOR DENTITION) Chronic Ear Infection Loss of Vision: Denies Hearing Impairment: Hard of Hearing Cancer: No Psychosocial: Yes Anxiety Integumentary: Yes Psoriasis Blood Disorders: No Adverse Reaction/Blood Tranf: No Family Medical History Reviewed Nursing Family Hx Cancer of mouth 19 FATHER ( of esophogeal cancer.) Cardiovascular disease 19 MOTHER G8 BROTHER Completed stroke 19 FATHER G8 BROTHER Diabetes mellitus G8 BROTHER FH: lung cancer 19 MOTHER Hypertension 19 FATHER Kidney disease 19 FATHER Myocardial infarction 19 MOTHER G8 BROTHER Respiratory disorder No Family History of: AIDS CAD Over 55 Years Old, CVA, Diabetes, Renal Disease Physical Exam Vital Signs Vital Signs - First Documented 11/23/18 10:21 Temp 97.2 Pulse 88 Resp 18 B/P (MAP) 145/77 (99) Pulse Ox 95 Capillary Refill : Height/Weight/BMI Height: 5'0.00" Weight: 161lbs. 8.0oz. [id number]; 31.3 BMI Method:Stated General Appearance: WD/WN, moderate distress HEENT: PERRL/EOMI, pharynx normal Neck: full range of motion, supple Respiratory: lungs clear, normal breath sounds Cardiovascular: regular rate, rhythm, no murmur Peripheral Pulses: 2+ Dorsalis Pedis (R), 2+ Left Dors-Pedis (L), 2+ Radial Pulses (R), 2+ Radial Pulses (L) Gastrointestinal: soft; No guarding, No rebound; tenderness (diffuse mild) Extremities: non-tender, normal inspection Back: normal inspection, no CVA tenderness, no vertebral tenderness Neurologic/Psychiatric: alert, oriented x 3 Skin: normal color, warm/dry Progress/Results/Core Measures Results/Orders Lab Results Laboratory Tests Test 11/23/18 10:47 11/23/18 11:24 11/23/18 12:57 11/23/18 14:01 Range/Units White Blood Count 12.4 H 4.3-11.0 10^3/uL Red Blood Count 4.09 L 4.35-5.85 10^6/uL Hemoglobin 12.3 11.5-16.0 G/DL Hematocrit 36 35-52 % Mean Corpuscular Volume 87 80-99 FL Mean Corpuscular Hemoglobin 30 25-34 PG Mean Corpuscular Hemoglobin Concent 35 32-36 G/DL Red Cell Distribution Width 13.1 10.0-14.5 % Platelet Count 293 130-400 10^3/uL Mean Platelet Volume 10.9 H 7.4-10.4 FL Neutrophils (%) (Auto) 67 42-75 % Lymphocytes (%) (Auto) 26 12-44 % Monocytes (%) (Auto) 5 0-12 % Eosinophils (%) (Auto) 1 0-10 % Basophils (%) (Auto) 1 0-10 % Neutrophils # (Auto) 8.3 H 1.8-7.8 X 10^3 Lymphocytes # (Auto) 3.3 1.0-4.0 X 10^3 Monocytes # (Auto) 0.6 0.0-1.0 X 10^3 Eosinophils # (Auto) 0.2 0.0-0.3 10^3/uL Basophils # (Auto) 0.1 0.0-0.1 10^3/uL Sodium Level 130 L 135-145 MMOL/L Potassium Level 4.7 3.6-5.0 MMOL/L Chloride Level 93 L 98-107 MMOL/L Carbon Dioxide Level 21 21-32 MMOL/L Anion Gap 16 H 5-14 MMOL/L Blood Urea Nitrogen 22 H 7-18 MG/DL Creatinine 1.31 H 0.60-1.30 MG/DL Estimat Glomerular Filtration Rate 42 BUN/Creatinine Ratio 17 Glucose Level 757 *H 70-105 MG/DL Calcium Level 8.7 8.5-10.1 MG/DL Corrected Calcium 9.0 8.5-10.1 MG/DL Magnesium Level 2.0 1.8-2.4 MG/DL Total Bilirubin 0.7 0.1-1.0 MG/DL Aspartate Amino Transf (AST/SGOT) 11 5-34 U/L Alanine Aminotransferase (ALT/SGPT) 11 0-55 U/L Alkaline Phosphatase 92 40-136 U/L C-Reactive Protein High Sensitivity 0.13 0.00-0.50 MG/DL Total Protein 6.8 6.4-8.2 GM/DL Albumin 3.6 3.2-4.5 GM/DL Lipase 18 8-78 U/L Urine Color YELLOW Urine Clarity CLEAR Urine pH 6 5-9 Urine Specific Hugo 1.010 L 1.016-1.022 Urine Protein 2+ H NEGATIVE Urine Glucose (UA) 4+ H NEGATIVE Urine Ketones 2+ H NEGATIVE Urine Nitrite NEGATIVE NEGATIVE Urine Bilirubin NEGATIVE NEGATIVE Urine Urobilinogen NORMAL NORMAL MG/DL Urine Leukocyte Esterase NEGATIVE NEGATIVE Urine RBC (Auto) NEGATIVE NEGATIVE Urine RBC NONE /HPF Urine WBC RARE /HPF Urine Squamous Epithelial Cells 0-2 /HPF Urine Crystals NONE /LPF Urine Bacteria TRACE /HPF Urine Casts NONE /LPF Urine Mucus NEGATIVE /LPF Urine Yeast FEW H /HPF Urine Culture Indicated YES Glucometer 516 *H 383 H 70-110 MG/DL My Orders Orders - VALENTIN YANES MD Cbc With Automated Diff (11/23/18 10:37) Comprehensive Metabolic Panel (11/23/18 10:37) Hs C Reactive Protein (11/23/18 10:37) Lipase (11/23/18 10:37) Magnesium (11/23/18 10:37) Ua Culture If Indicated (11/23/18 10:37) Diphenhydramine Injection (Benadryl Inje (11/23/18 10:37) Insulin (Regular) Human (Humulin R (Per (11/23/18 11:27) Ns Iv 1000 Ml (Sodium Chloride 0.9%) (11/23/18 11:27) Urine Culture (11/23/18 11:24) Morphine Injection (Morphine Injection (11/23/18 12:25) Accucheck Stat ONCE (11/23/18 12:49) Medications Given in ED Current Medications Medications Dose Ordered Sig/Jackie Route Start Time Stop Time Status Last Admin Dose Admin Sodium Chloride 1,000 ml @ 0 mls/hr Q0M ONCE IV 11/23/18 11:27 11/23/18 11:29 DC 11/23/18 11:35 1,000 MLS/HR Vital Signs/I&O 11/23/18 10:21 Temp 97.2 Pulse 88 Resp 18 B/P (MAP) 145/77 (99) Pulse Ox 95 Progress Progress Note : Progress Note Seen and evaluated. IV by EMS. Labs and UA ordered. Benadryl 50 mg IV ordered. Monitor patient. Blood sugar noted to be 700. Insulin 30 units subcutaneous ordered and normal saline 1 L bolus repeated. Monitor patient. Repeat normal saline 1 L bolus ordered as patient still has elevated blood sugar. She is still nauseated. She is asking for pain medicine. Morphine 10 mg IV and eventually given for her chronic pain. Monitor patient. 1405: Patient still with nausea and vomiting. She is allergic to Zofran. Repeat dosing of Phenergan not available yet. Fluids are complete. Blood sugar still in the 300s despite insulin and fluids. She does have 2+ ketones in her urine but I think this is more related to dehydration. I did discuss the case with Dr. Berry. Given her persistent vomiting and inability to take meds and her hyperglycemia, patient will be admitted on insulin drip protocol for non-DKA hyperglycemia. Patient to be admitted to stepdown per her request. Admit, inpatient status. Patient agrees with plan. Departure Communication (Admissions) Time/Spoke to Admitting Phy: 14:05 Impression Primary Impression: Uncontrolled diabetes mellitus with hyperglycemia Qualified Codes: E10.65 - Type 1 diabetes mellitus with hyperglycemia Additional Impression: Intractable nausea and vomiting Qualified Codes: R11.2 - Nausea with vomiting, unspecified Disposition: ADMITTED INPATIENT Condition: Stable Admissions Decision to Admit Reason: Admit from ER (General) Decision to Admit/Date: Nov 23, 2018 Time/Decision to Admit Time: 14:05 Departure-Patient Inst. Referrals: [facility] [place] (PCP/Family) Primary Care Physician VALENTIN YANES MD Nov 23, 2018 10:41
[2018-11-23 10:53] LABS: BASOPHILS # (AUTO) 0.1 10^3/uL (0.0-0.1); BASOPHILS % (AUTO) 1 % (0-10); EOSINOPHILS # (AUTO) 0.2 10^3/uL (0.0-0.3); EOSINOPHILS % (AUTO) 1 % (0-10); HEMATOCRIT 36 % (35-52); HEMOGLOBIN 12.3 G/DL (11.5-16.0); LYMPHOCYTES # (AUTO) 3.3 X 10^3 (1.0-4.0); LYMPHOCYTES % (AUTO) 26 % (12-44); MEAN CORPUSCULAR HEMOGLOBIN 30 PG (25-34); MEAN CORPUSCULAR HGB CONC 35 G/DL (32-36); MEAN CORPUSCULAR VOLUME 87 FL (80-99); MEAN PLATELET VOLUME 10.9 FL (7.4-10.4); MONOCYTES # (AUTO) 0.6 X 10^3 (0.0-1.0); MONOCYTES % (AUTO) 5 % (0-12); NEUTROPHILS # (AUTO) 8.3 X 10^3 (1.8-7.8); NEUTROPHILS % (AUTO) 67 % (42-75); PLATELET COUNT 293 10^3/uL (130-400); RED BLOOD COUNT 4.09 10^6/uL (4.35-5.85); RED CELL DISTRIBUTION WIDTH 13.1 % (10.0-14.5); WHITE BLOOD COUNT 12.4 10^3/uL (4.3-11.0)
[2018-11-23 11:16] LABS: ALBUMIN 3.6 GM/DL (3.2-4.5); BILIRUBIN,TOTAL 0.7 MG/DL (0.1-1.0); CALCIUM 8.7 MG/DL (8.5-10.1); CREATININE SERUM 1.31 MG/DL (0.60-1.30); POTASSIUM 4.7 MMOL/L (3.6-5.0); TOTAL PROTEIN 6.8 GM/DL (6.4-8.2)
--- NOTE | 2018-11-23 11:25 | NUR ---
1000 OF NS FLUIDS INFUSED. Addendum: 11/23/18 at 1128 by PMCCLURE STARTED BY EMS
[2018-11-23] MEDS ORDERED: NS IV 1000 ML 1,000 ML IV ONE (11:27)
[2018-11-23] MEDS ORDERED: inSUlin (REGULAR) HUMAN 1 UNIT/0.01 ML (CHARGE PER UNIT) SC STA (11:27)
--- NOTE | 2018-11-23 11:35 | NUR ---
REQUEST NOT TO HAVE B/P CUFF ON
[2018-11-23 11:40] LABS: BILIRUBIN,URINE NEGATIVE (NEGATIVE); CLARITY,URINE CLEAR; COLOR,URINE YELLOW; GLUCOSE, URINE (UA) 4+ (NEGATIVE); KETONES,URINE 2+ (NEGATIVE); LEUKOCYTE ESTERASE ,URINE NEGATIVE (NEGATIVE); NITRITE,URINE NEGATIVE (NEGATIVE); PH,URINE 6 (5-9); PROTEIN,URINE 2+ (NEGATIVE); UROBILINOGEN,URINE NORMAL (NORMAL)
--- NOTE | 2018-11-23 11:47 | NUR ---
AMB TO [facility]
[2018-11-23 11:55] LABS: BACTERIA,URINE TRACE /HPF; WBC,URINE RARE /HPF
[2018-11-23 11:56] LABS: SQUAMOUS EPITHELIAL CELL,UR 0-2 /HPF; YEAST,URINE FEW /HPF
[2018-11-23] MEDS ORDERED: morphine INJ 10 MG/ML 1ML (SYR OR VIAL) IVP STA (12:25)
--- OUTSIDE RECORDS SUMMARY | 2018-11-23 14:34 | XMS REPORT ---
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 Name Role Phone LADARIUS TRINIDAD Unavailable PROBLEMS Type Condition ICD9-CM Code ADO55-WK Code Onset Dates Condition Status SNOMED Code Problem Primary insomnia F51.01 Active 0247382 Problem Other obesity due to excess calories E66.09 Active 988414941 Problem Arthritis M19.90 Active 8914377 Problem Type 2 diabetes mellitus without complication E11.9 Active 440698177 Problem Fibromyalgia M79.7 Active 11482315 Problem Dysphagia, unspecified type R13.10 Active 64659786 Problem Hyperlipidemia E78.5 Active 51969589 Problem Degenerative disc disease, lumbar M51.36 Active 45419329 Problem Diabetic mononeuropathy associated with type 2 diabetes mellitus E11.41 Active 390649741 Problem Body mass index (BMI) of 33.0-33.9 in adult Z68.33 Active 833533077 Problem Type 2 diabetes mellitus with hyperglycemia E11.65 Active 606526824859385 Problem Cervicalgia M54.2 Active 51477320 Problem Essential hypertension I10 Active 57190789 Problem CAD (coronary artery disease) I25.10 Active 56511610 Problem GERD (gastroesophageal reflux disease) K21.9 Active 298189671 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 Active 990910516 Problem Chronic pain syndrome G89.4 Active 061900954 Problem DM neuro manif type II E11.49 Active 01841067 Problem Vitamin D deficiency E55.9 Active 76721449 Problem Tobacco abuse Z72.0 Active 66251024 Problem Dental caries K02.9 Active 85851905 Problem Alterations of sensations R20.9 Active 555758037 Problem Tobacco abuse counseling Z71.6 Active 591257948 Problem Seasonal allergic rhinitis due to pollen J30.1 Active 33787741 ALLERGIES No Information ENCOUNTERS Encounter Location Date Diagnosis [facility] [id number] [place] [address] 28980- 1134 Oct, [facility] [address] 89398- 7203 Oct, [facility] [id number] [place] [address] 12795- 1148 Sep, [facility] [address] 83974- 4192 Sep, Type 2 diabetes mellitus without complication E11.9 ; Peripheral edema R60.9 ; Weakness R53.1 ; Acute pain of right knee M25.561 ; Degenerative disc disease, lumbar M51.36 ; Fibromyalgia M79.7 and Anemia, unspecified type D64.9 [facility] [id number] [place] [address] 51804- 0469 Sep, [place] [address] 68046- 4030 Sep, [facility] [id number] [place] [address] 60059- 7559 Sep, [facility] [address] 00830- 9552 Sep, Type 2 diabetes mellitus with hyperglycemia E11.65 ; Other microscopic hematuria R31.29 ; Nausea and vomiting, intractability of vomiting not specified, unspecified vomiting type R11.2 and Dizziness R42 [facility] [id number] [place] [address] 01774- 3176 Sep, [facility] [address] 35894- 5963 Sep, [facility] [address] 09075- 8014 Sep, GERD (gastroesophageal reflux disease) K21.9 [facility] [address] 64241- 7035 Aug, [facility] [address] [place] [address] 1240 18 Aug, 2018 DM neuro manif type II E11.49 [facility] [id number] [place] [address] 37431- 3944 Aug, [facility] [id number] [place] [address] 56270- 5143 Jul, [facility] [id number] [place] [address] 46948- 1252 Jul, Elevated serum creatinine R79.89 [facility] [id number] [place] [address] 01620- 8376 Jul, [facility] [id number] [place] [address] 97511- 3686 Jul, [place] [id number] [place] [address] 86712- 7054 Jul, [facility] [id number] [place] [address] 01471- 4630 Jun, DM neuro manif type II E11.49 ; Hyperlipidemia E78.5 ; GERD (gastroesophageal reflux disease) K21.9 ; Fibromyalgia M79.7 ; 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 ; Chronic pain syndrome G89.4 ; Primary insomnia F51.01 ; Seasonal allergic rhinitis due to pollen J30.1 ; Elevated serum creatinine R79.89 and Dysphagia, unspecified type R13.10 [facility] [id number] [place] [address] 39101- 8671 Apr, Type 2 diabetes mellitus with hyperglycemia E11.65 [facility] [id number] [place] [address] 30333- 4424 Apr, Hyperlipidemia E78.5 ; Chronic pain syndrome G89.4 ; Cervicalgia M54.2 ; DM neuro manif type II E11.49 ; detention current use of insulin Z79.4 ; Nausea alone R11.0 ; Essential hypertension I10 ; GERD ( gastroesophageal reflux disease) K21.9 ; CAD (coronary artery disease) I25.10 and Diabetic mononeuropathy associated with type 2 diabetes mellitus E11.41 [place] [id number] [place] [address] 74757- 9634 Apr, [place] [id number] [place] [address] 09609- 5303 March, Essential hypertension I10 ; DM neuro manif type II E11.49 and GERD (gastroesophageal reflux disease) K21.9 [place] [address] 69384- 9584 March, DM neuro manif type II E11.49 and GERD (gastroesophageal reflux disease) K21.9 [place] [id number] [place] [address] 83297- 7985 March, [place] [id number] [place] [address] 69069- 8384 Feb, Tobacco abuse Z72.0 [place] [address] 64430- 8583 Feb, Tobacco abuse Z72.0 [place] [id number] [place] [address] 65498- 5091 Feb, Hypokalemia E87.6 [place] [id number] [place] [address] 02187- 6501 Feb, Hyperlipidemia E78.5 ; Essential hypertension I10 ; DM neuro manif type II E11.49 ; Fibromyalgia M79.7 ; Acute non-recurrent frontal sinusitis J01.10 ; Other obesity due to excess calories E66.09 and Body mass index (BMI) of 33.0-33.9 in adult Z68.33 [place] [id number] [place] [address] 07335- 1868 Jan, Dysuria R30.0 [place] [id number] [place] [address] 85679- 9431 Jan, Dysuria R30.0 [place] [address] 63641- 7883 Jan, Acute cystitis with hematuria N30.01 ; DM neuro manif type II E11.49 ; 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 ; Essential hypertension I10 and Hospital discharge follow-up Z09 [place] [id number] [place] [address] 35365- 6983 27 Dec, 2017 Chest pain, unspecified type R07.9 ; Dehydration E86.0 and Anuria R34 [place] [address] 53283- 1726 Dec, [place] [address] 33387- 2911 Dec, Hyperglycemia R73.9 ; Dehydration E86.0 and Acute cystitis with hematuria N30.01 [facility] [address] 89737 -4346 Dec, [facility] [address] 06262 -4063 Dec, [facility] [address] [place] [address] 58618 -2270 Dec, [facility] [address] [place] [address] 75219 -6163 Dec, Dysuria R30.0 ; Acute cystitis with hematuria N30.01 and Weakness R53.1 [place] [address] 88482- 2853 Dec, [place] [id number] [place] [address] 56552- 7504 Nov, [address] 17731- 5334 Nov, [place] [id number] [place] [address] 33270- 9195 Nov, Essential hypertension I10 ; DM neuro [...] Seasonal allergic rhinitis due to pollen J30.1 [place] [address] 16306- 4305 Nov, Alterations of sensations R20.9 [facility] [address] 04101- 1688 Sep, DM neuro manif type II E11.49 ; Hyperlipidemia E78.5 ; Degenerative disc disease, lumbar M51.36 and Chronic pain syndrome G89.4 [place] [address] 83350- 6888 Sep, Arthritis M19.[address] 57670- 3040 Sep, Type 2 diabetes mellitus without complication E11.9 ; GERD ( gastroesophageal reflux disease) K21.9 ; Arthritis M19.90 and Chronic pain syndrome G89.4 [place] [address] 98808- 3310 Sep, [place] [address] 14962- 6870 Aug, [place] [address] 26529- 0925 Aug, Type 2 diabetes mellitus without complication E11.9 [place] [address] 15861- 8965 Aug, [place] [address] 36316- 4342 Aug, [place] [address] 99632- 7326 Aug, [place] [address] 85428- 4906 Jul, [facility] [id number] [place] [address] 73343 -5006 22 Jul, 2017 Acute non-recurrent frontal sinusitis J01.10 [facility] [id number] [place] [address] 44846- 7398 20 Jul, 2017 CAD (coronary artery disease) I25.10 and GERD ( gastroesophageal reflux disease) K21.9 [facility] [address] 20010- 4155 14 Jul, 2017 Localized swelling, mass and lump, neck R22.1 [place] [address] 73745- 0983 06 Jul, 2017 [place] [id number] [place] [address] 64404- 0406 15 Jun, 2017 Type 2 diabetes mellitus without complication E11.9 ; Primary insomnia F51.01 ; Alterations of sensations R20.9 ; Hyperlipidemia E78.5 ; GERD (gastroesophageal reflux disease) K21.9 ; Essential hypertension I10 ; 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 ; Tobacco abuse Z72.0 ; Tobacco abuse counseling Z71.6 and CAD (coronary artery disease) I25.10 [facility] [id number] [place] [address] 81111- 1991 May, [place] [id number] [place] [address] 08997- 9225 May, Type 2 diabetes mellitus without complication E11.9 [place] [id number] [place] [address] 70260- 3012 May, [place] [address] 74562- 4188 March, [place] [id number] [place] [address] 77358- 1971 Feb, [facility] [id number] [place] [address] 01810 -9989 Jan, Acute suppurative otitis media of left ear with spontaneous rupture of tympanic membrane, recurrence not specified H66.012 [place] [address] 08432- 8499 Dec, Type 2 diabetes mellitus without complication E11.9 ; Lumbago M54.5 ; Cervicalgia M54.2 ; Hyperlipidemia E78.5 ; GERD ( gastroesophageal reflux disease) K21.9 ; Chronic pain syndrome G89.4 ; Dysuria R30.0 and Essential hypertension I10 [place] [address] 83538- 9206 Oct, [place] [address] 46983- 4083 Sep, Diabetic mononeuropathy associated with type 2 diabetes mellitus E11.41 and Coughing R05 [place] [address] 07586- 8184 Sep, Diabetic mononeuropathy associated with type 2 diabetes mellitus E11.41 and Coughing R05 [place] [address] 74891- 9879 Sep, Onychomycosis B35.1 ; Neuritis M79.2 and Type 2 diabetes mellitus without complication E11.9 [place] [id number] [place] [address] 84998- 2185 Sep, [place] [address] 02408- 6934 Sep, Cough R05 ; Seasonal allergic rhinitis due to pollen J30.1 and Acute upper respiratory infection, unspecified J06.9 [place] [address] 01140- 7330 Sep, [place] [address] 69239- 8977 Aug, [place] [address] 25096- 7655 Jul, Type 2 diabetes mellitus without complication E11.9 ; Chronic pain G89.29 ; Essential hypertension I10 and Acute non-recurrent maxillary sinusitis J01.00 [place] [id number] [place] [address] 43258- 4543 Jul, Chronic pain syndrome G89.4 ; Lumbago M54.5 and Cervicalgia M54.2 [place] [address] 79337- 4263 Jul, [place] [address] 89834- 4960 Jul, [place] [address] 81542- 2594 Jun, Onychomycosis B35.1 ; Onychocryptosis L60.0 and DM neuro manif type II E11.49 [place] [address] 30093- 8519 Jun, Type 2 diabetes mellitus without complication E11.9 ; Pain in unspecified hip M25.559 ; Other chronic pain G89.29 ; Lumbago M54.5 ; Chronic pain G89.29 ; Insomnia, unspecified G47.00 ; GERD (gastroesophageal reflux disease) K21.9 and Dental caries K02.9 [place] [id number] [place] [address] 65047- 1116 Jun, Type 2 diabetes mellitus without complication E11.9 ; Lumbago M54.5 ; Chronic pain G89.29 ; Insomnia, unspecified G47.00 ; GERD ( gastroesophageal reflux disease) K21.9 ; Dental caries K02.9 ; Pain in unspecified hip M25.559 and Other chronic pain G89.29 [place] [id number] [place] [address] 52356- 6469 May, [place] [address] 95719- 1953 May, Type 2 diabetes mellitus without complication E11.9 ; Essential hypertension I10 ; Chronic pain syndrome G89.4 ; Other seasonal allergic rhinitis J30.2 and Insomnia, unspecified G47.00 [place] [id number] [place] [address] 78865- 2604 Apr, [facility] [address] 52068- 0894 Apr, Hypertension I10 and Chronic pain G89.29 [place] [address] 55751- 4933 March, Onychomycosis B35.1 ; Onychocryptosis L60.0 and Type 2 diabetes mellitus without complication E11.9 [place] [address] 41123- 9023 March, Type 2 diabetes mellitus without complication E11.9 ; Essential hypertension I10 ; Alterations of sensations R20.9 ; Chronic pain syndrome G89.4 ; Tobacco abuse Z72.0 and Tobacco abuse counseling Z71.6 [place] [address] 06441- 9668 Feb, Cough R05 ; Type 2 diabetes mellitus without complication E11.9 ; Tobacco abuse counseling Z71.6 and Chronic pain G89.29 [place] [id number] [place] [address] 54913- 6907 Feb, [place] [id number] [place] [address] 86317- 1668 Feb, Type 2 diabetes mellitus without complication E11.9 ; Lumbago M54.5 ; Cervicalgia M54.2 ; Degenerative disc disease, lumbar M51.36 and Numbness and tingling of both legs 782.0 [facility] [id number] [place] [address] [id number] Jan, Dental caries K02.9 and Encounter for dental examination Z01.20 [place] [id number] [place] [address] 40030- 1136 Jan, Type 2 diabetes mellitus without complication E11.9 [place] [address] 37529- 7563 Jan, Type 2 diabetes mellitus without complication E11.9 ; Numbness and tingling of both legs 782.0 ; Fibromyalgia M79.7 ; Hyperlipidemia E78.5 ; Lumbago M54.5 ; Cervicalgia M54.2 ; Hypertension I10 ; CAD (coronary artery disease) I25.10 ; Tobacco abuse Z72.0 ; Tobacco abuse counseling Z71.6 and GERD (gastroesophageal reflux disease) K21.9 [place] [address] 15432- 9245 Jan, [place] [address] 12748- 4150 Dec, [facility] [address] [id number] Dec, Dental examination Z01.20 and Dental caries K02.9 [place] [address] 40964- 0629 Dec, Edema R60.9 ; Type 2 diabetes mellitus without complication E11.9 ; Hypertension I10 and Mouth pain K13.79 [place] [address] 65397- 6995 Dec, Degenerative disc disease, lumbar M51.36 [place] [address] 47290- 8961 Dec, [place] [address] 83934- 7753 Nov, Insomnia, unspecified G47.00 [place] [address] 98260- 2266 Nov, Type 2 diabetes mellitus without complication E11.9 ; Lumbago M54.5 ; Degenerative disc disease, lumbar M51.36 ; Fibromyalgia M79.7 ; Coronary artery disease I25.10 ; Hyperlipidemia E78.5 ; Controlled substance agreement signed Z79.899 ; Dysuria R30.0 ; Insomnia, unspecified G47.00 ; GERD ( gastroesophageal reflux disease) K21.9 ; Hypertension 401.9 and 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 [place] [address] 75688- 5767 Nov, [place] [address] 78807- 1489 Oct, Degenerative disc disease, lumbar M51.36 ; Cervicalgia M54.2 ; Insomnia, unspecified G47.00 ; Decreased GFR R94.4 and GERD ( gastroesophageal reflux disease) K21.9 [place] [address] 91538- 4639 Oct, Lumbago M54.5 [place] [address] 73164- 2648 Oct, Low back pain M54.5 [place] [address] 17210- 9871 Oct, [place] [address] 35004- 6323 Oct, Disorientation R41.[address] 77365- 7202 Oct, Type 2 diabetes mellitus without complication E11.9 ; Disorientation R41.0 and Chest pain R07.[address] 26417- 8802 Oct, [place] [address] 49808- 4908 Sep, Low back pain M54.5 [place] [address] 72685- 7540 Sep, Insomnia, unspecified G47.00 [place] [address] 79128- 1328 Aug, Degenerative disc disease, lumbar M51.36 ; Type 2 diabetes mellitus without complication E11.9 and Encounter for immunization Z23 [facility] [address] [address]- 7022 Aug, [facility] [id number] [place] [address] 07378- 7816 Aug, [facility] [id number] [place] [address] 92369- 2480 Aug, [facility] [id number] [place] [address] 19914- 3596 Jul, [facility] [id number] [place] [address] 55937- 3783 Jun, [facility] [id number] [place] [address] 05323- 6508 Jun, Chest pain 786.50 and Lumbago 724.2 [facility] [id number] [place] [address] 19873- 8306 Jun, [facility] [id number] [place] [address] 63587- 6028 Jun, [facility] [id number] [place] [address] [id number] Jun, Dental examination V72.2 [facility] [id number] [place] [address] 06446- 4342 Jun, [facility] [id number] [place] [address] 80480- 4697 May, Left shoulder pain 719.41 and Numbness and tingling of both legs 782.0 [facility] [id number] [place] [address] 32671- 4786 May, Cough 786.2 ; Numbness and tingling of both legs 782.0 and Acute rhinitis 460 [facility] [id number] [place] [address] 27795- 6206 May, [facility] [id number] [place] [address] 53273- 8254 Apr, [facility] [address] [address]- 5910 Apr, Bilateral lower extremity edema 782.3 ; Lumbago 724.2 and Insomnia 780.52 [facility] [address] [address]- 3463 Apr, [facility] [id number] [place] [address] 33354- 3644 Apr, [facility] [address] [address]- 6868 March, Seborrheic keratosis 702.19 and Skin lesion of face 709.9 [facility] [address] [address]- 9525 March, [facility] [id number] [address]- 2227 March, [facility] [address] [address]- 2283 March, [facility] [address] 2480 March, [facility] [address] [address]- 4691 Feb, [facility] [address] [address]- 2336 Feb, [facility] [address] [address]- 9120 Jan, [facility] [address] [address]- 6449 Jan, [facility] [address] 4582 Jan, [facility] [address] 2057 Jan, [facility] [place] [facility] [address] [id number] [place] [address]- 0761 16 Jan, 2015 [facility] [place] [facility] [address] [id number] [place] [address]- 2632 16 Jan, 2015 [facility] [place] [facility] [address] [id number] [place] [address]- 6480 13 Jan, 2015 [facility] [place] [facility] [address] [id number] [place] [address]- 5119 13 Jan, 2015 [facility] [place] [facility] [address] [id number] [place] [address]- 8876 13 Jan, 2015 [facility] [place] [facility] [address] [id number] [place] [address]- 9052 Jan, [facility] [place] [facility] [address] [id number] [place] [address]- 0730 Jan, [facility] [place] [facility] [address] [id number] [place] [address]- 3021 Dec, [facility] [place] [facility] [address] [id number] [place] [address]- 1037 Dec, [facility] [place] [facility] [address] [id number] [place] [address]- 4790 Dec, [facility] [place] [facility] [address] [id number] [place] [address]- 9289 Dec, [facility] [place] [facility] [address] [id number] [place] [address]- 4261 Dec, [facility] [place] [facility] [address] [id number] [place] [address] Dec, [facility] [place] [facility] [address] [id number] [place] [address] Nov, [facility] [place] [facility] [address] [id number] [place] [address] Nov, [facility] [place] [facility] [address] [id number] [place] [address] 14 Nov, 2014 [facility] [address] [id number] [place] [address] 14 Nov, 2014 [facility] [place] [facility] [address] [id number] [place] [address] Nov, [facility] [place] [facility] [address] [id number] [place] [address] Nov, [facility] [place] [facility] [address] [id number] [place] [address] Nov, [facility] [place] [facility] [address] [id number] [place] [address] Nov, [facility] [place] [facility] [address] [id number] [place] [address] Nov, [facility] [place] [facility] [address] [id number] [place] [address] Nov, [facility] [place] [facility] [address] [id number] [place] [address] Nov, [facility] [place] [facility] [address] [id number] [place] [address] Oct, [facility] [place] [facility] [address] [id number] [place] [address] Oct, [facility] [place] [facility] [address] [id number] [place] [address] Oct, [facility] [place] [facility] [address] [id number] [place] [address] Oct, [facility] [place] [facility] [address] [id number] [place] [address] Oct, [facility] [place] [facility] [address] [id number] [place] [address] Oct, [facility] [place] [facility] [address] [id number] [place] [address] Oct, [facility] [place] [facility] [address] [id number] [place] [address] Oct, [facility] [place] [facility] [address] [id number] [place] [address] Oct, [facility] [place] [facility] [address] [id number] [place] [address] Oct, [facility] [place] [facility] [address] [id number] [place] [address] Sep, [facility] [place] [facility] [address] [id number] [place] [address]- [address] Sep, [facility] [place] [facility] [address] [id number] [place] [address] Sep, [facility] [place] [facility] [address] [id number] [place] [id number] Sep, [facility] [place] [facility] [address] [id number] [place] [address] Sep, [facility] [place] [facility] [address] [id number] [place] [address] Sep, [facility] [place] [facility] [address] [id number] [place] [address] Sep, [facility] [place] [facility] [address] [id number] [place] [address] Sep, [facility] [place] [facility] [address] [id number] [place] [address] Sep, [facility] [place] [facility] [address] [id number] [place] [address] 17 Sep, 2014 [facility] [place] [facility] [address] [id number] [place] [address] 13 Sep, 2014 [facility] [place] [facility] [address] [id number] [place] [address] 11 Sep, 2014 [facility] [place] [facility] [address] [id number] [place] [address] Sep, [facility] [place] [facility] [address] [id number] [place] [address] Aug, [facility] [place] [facility] [address] [id number] [place] [address] Aug, [facility] [place] [facility] [address] [id number] [place] [address] Aug, [facility] [place] [facility] [address] [id number] [place] [address] Aug, [facility] [place] [facility] [address] [id number] [place] [address]- [address] Aug, [facility] [place] [facility] [address] [id number] [place] [address] Aug, [facility] [place] [facility] [address] [id number] [place] [address] Aug, [facility] [place] [facility] [address] [id number] [address] Aug, [facility] [place] [facility] [address] [id number] [place] [address] Aug, [facility] [place] [facility] [address] [id number] [place] [address]- [address] Aug, [facility] [place] [facility] [address] [id number] [place] [address] Aug, [facility] [place] [facility] [address] [id number] [place] [address] Aug, [facility] [place] [facility] [address] [id number] [place] [address]- [address] Aug, [facility] [place] [facility] [address] [id number] [place] [address] Aug, [facility] [place] [facility] [address] [id number] [address] Aug, [facility] [place] [facility] [address] [id number] [place] [address]- [address] 06 Aug, 2014 [facility] [place] [facility] [address] [id number] [place] [address]- [address] Aug, [facility] [place] [facility] [address] [id number] [place] [address]- [address] Aug, [facility] [place] [facility] [address] [id number] [place] [address] 30 Jul, 2013 [facility] [place] [facility] [address] [id number] [place] [address]46 30 Jul, 2013 [facility] [place] [facility] [address] [id number] [place] [address]- [address] 24 Jul, 2013 [facility] [place] [facility] [address] [id number] [place] [address]- [address] 24 Jul, 2013 [facility] [place] [facility] [address] [id number] [place] [address]- [address] 23 Jul, 2013 [facility] [place] [facility] [address] [id number] [place] [address]- [address] 23 Jul, 2013 [facility] [place] [facility] [address] [id number] [place] [address] 15 Jul, 2013 [facility] [place] [facility] [address] [id number] [place] [address]49 15 Jul, 2013 [facility] [place] [facility] [address] [id number] [place] [address] 2546 15 Jul, 2013 [facility] [place] [facility] [address] [id number] [place] [address] 25[address] 15 Jul, 2013 [facility] [place] [facility] [address] [id number] [place] [address] 2546 11 Jul, 2013 [facility] [place] [facility] [address] [id number] [place] [address] 2546 11 Jul, 2013 [facility] [place] [facility] [address] [id number] [place] [address] Jul, [facility] [address] [facility] [id number] [place] [address] Jul, IMMUNIZATIONS No Known Immunizations SOCIAL HISTORY Never Assessed REASON FOR VISIT high BS PLAN OF CARE VITAL SIGNS MEDICATIONS Unknown [...] History Chest Pain 12/2016 Hospitalization History [facility]- Influenza illness, hyperglycemia 2017 Hospitalization History [facility]- High BS (Pt left AMA) 01/05/2018 Hospitalization History [facility]- DKA and UTI. Discharged 01/14/2018 Hospitalization History [facility]- Nausea and Vomiting, cannot urinate 01/18/2018 Hospitalization History [facility]-DKA 10/06/48
--- OUTSIDE RECORDS SUMMARY | 2018-11-23 14:34 | XMS REPORT ---
Author Author LADARIUS TRINIDAD [facility] Address [address] [place] [address] Care Team Providers Care Channel Process Supervisor Name Role Phone LADARIUS TRINIDAD Unavailable PROBLEMS Type Condition ICD9-CM Code PUA54-VN Code Onset Dates Condition Status SNOMED Code Problem Primary insomnia F51.01 Active 1139459 Problem Other obesity due to excess calories E66.09 Active 774650245 Problem Arthritis M19.90 Active 6269010 Problem Type 2 diabetes mellitus without complication E11.9 Active 431912730 Problem Fibromyalgia M79.7 Active 69358549 Problem Dysphagia, unspecified type R13.10 Active 41033330 Problem Hyperlipidemia E78.5 Active 91476271 Problem Degenerative disc disease, lumbar M51.36 Active 74959383 Problem Diabetic mononeuropathy associated with type 2 diabetes mellitus E11.41 Active 599577138 Problem Body mass index (BMI) of 33.0-33.9 in adult Z68.33 Active 374453873 Problem Type 2 diabetes mellitus with hyperglycemia E11.65 Active 687049300664829 Problem Cervicalgia M54.2 Active 60039684 Problem Essential hypertension I10 Active 28307685 Problem CAD (coronary artery disease) I25.10 Active 65958704 Problem GERD (gastroesophageal reflux disease) K21.9 Active 749754423 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 Active 894657802 Problem Chronic pain syndrome G89.4 Active 197290107 Problem DM neuro manif type II E11.49 Active 28363067 Problem Vitamin D deficiency E55.9 Active 60686520 Problem Tobacco abuse Z72.0 Active 98605150 Problem Dental caries K02.9 Active 37988336 Problem Alterations of sensations R20.9 Active 071326960 Problem Tobacco abuse counseling Z71.6 Active 641802106 Problem Seasonal allergic rhinitis due to pollen J30.1 Active 97119428 ALLERGIES No Information ENCOUNTERS Encounter Location Date Diagnosis [facility] [id number] [place] [address] 38758- 2791 Oct, [facility] [address] 44144- 6424 Oct, [facility] [address] 13132- 4940 Oct, GERD (gastroesophageal reflux disease) K21.9 [place] [address] 92553- 9734 Sep, [place] [address] 15227- 0288 Sep, Type 2 diabetes mellitus without complication E11.9 ; Peripheral edema R60.9 ; Weakness R53.1 ; Acute pain of right knee M25.561 ; Degenerative disc disease, lumbar M51.36 ; Fibromyalgia M79.7 and Anemia, unspecified type D64.9 [place] [address] 10834- 2188 Sep, [place] [id number] [place] [address] 24625- 5049 Sep, [facility] [id number] [place] [address] 87482- 7335 Sep, [place] [id number] [place] [address] 73619- 8481 Sep, Type 2 diabetes mellitus with hyperglycemia E11.65 ; Other microscopic hematuria R31.29 ; Nausea and vomiting, intractability of vomiting not specified, unspecified vomiting type R11.2 and Dizziness R42 [place] [id number] [place] [address] 42459- 2707 Sep, [place] [address] 34016- 7670 Sep, [facility] [id number] [place] [address] 20673- 7312 Sep, GERD (gastroesophageal reflux disease) K21.9 [place] [address], [place] [address] 8951 Aug, [facility] [id number] [place] [address] 46404- 1468 Aug, DM neuro manif type II E11.49 [place] [id number] [place] [address] 02593- 2283 Aug, [place] [address] 86925- 7044 Jul, [place] [id number] [place] [address] 74829- 0753 Jul, Elevated serum creatinine R79.89 [place] [id number] [place] [address] 78048- 3851 Jul, [place] [id number] [place] [address] 28848- 6587 Jul, [facility] [id number] [place] [address] 62347- 0178 Jul, [place] [id number] [place] [address] 37476- 3034 Jun, DM neuro manif type II E11.49 ; Hyperlipidemia E78.5 ; GERD (gastroesophageal reflux disease) K21.9 ; Fibromyalgia M79.7 ; 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 ; Chronic pain syndrome G89.4 ; Primary insomnia F51.01 ; Seasonal allergic rhinitis due to pollen J30.1 ; Elevated serum creatinine R79.89 and Dysphagia, unspecified type R13.10 [place] [id number] [place] [address] 74712- 2135 Apr, Type 2 diabetes mellitus with hyperglycemia E11.65 [place] [id number] [place] [address] 95131- 1465 Apr, Hyperlipidemia E78.5 ; Chronic pain syndrome G89.4 ; Cervicalgia M54.2 ; DM neuro manif type II E11.49 ; 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 ; Nausea alone R11.0 ; Essential hypertension I10 ; GERD ( gastroesophageal reflux disease) K21.9 ; CAD (coronary artery disease) I25.10 and Diabetic mononeuropathy associated with type 2 diabetes mellitus E11.41 [place] [address] 39387- 6120 Apr, [place] [address] 44490- 3856 March, Essential hypertension I10 ; DM neuro manif type II E11.49 and GERD (gastroesophageal reflux disease) K21.9 [place] [address] 51108- 7312 March, DM neuro manif type II E11.49 and GERD (gastroesophageal reflux disease) K21.9 [place] [address] 63688- 9204 March, [address] 38434- 2602 Feb, Tobacco abuse Z72.[address] 41567- 5904 Feb, Tobacco abuse Z72.0 [place] [address] 73123- 3267 Feb, Hypokalemia E87.[address] 53296- 3266 Feb, Hyperlipidemia E78.5 ; Essential hypertension I10 ; DM neuro manif type II E11.49 ; Fibromyalgia M79.7 ; Acute non-recurrent frontal sinusitis J01.10 ; Other obesity due to excess calories E66.09 and Body mass index (BMI) of 33.0-33.9 in adult Z68.[address] 04741- 6500 Jan, Dysuria R30.[address] 47114- 9807 05 Jan, 2018 Dysuria R30.0 [facility] [id number] [place] [address] 24747- 4862 02 Jan, 2018 Acute cystitis with hematuria N30.01 ; DM neuro manif type II E11.49 ; prison current use of insulin Z79.4 ; Essential hypertension I10 and Hospital discharge follow-up Z09 [place] [address] 53063- 5817 27 Dec, 2017 Chest pain, unspecified type R07.9 ; Dehydration E86.0 and Anuria R34 [place] [address] 53067- 9951 Dec, [place] [address] 17626- 5510 22 Dec, 2017 Hyperglycemia R73.9 ; Dehydration E86.0 and Acute cystitis with hematuria N30.01 [facility] [address] 50603 -9934 Dec, [facility] [address] 08553 -5030 Dec, [facility] [address] 98190 -4768 Dec, [facility] [id number] [place] [address] 91222 -7530 Dec, Dysuria R30.0 ; Acute cystitis with hematuria N30.01 and Weakness R53.1 [place] [address] 61680- 5423 Dec, [place] [address] 20246- 3501 Nov, [place] [address] 67119- 7700 Nov, [place] [address] 37352- 7453 Nov, Essential hypertension I10 ; DM neuro manif type II E11.49 ; 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 ; Tobacco abuse Z72.0 ; Hyperlipidemia E78.5 ; Non-adherence to medical treatment Z91.19 ; GERD (gastroesophageal reflux disease) K21.9 ; Degenerative disc disease, lumbar M51.36 ; Fibromyalgia M79.7 ; Chronic pain syndrome G89.4 ; Dental caries K02.9 and Seasonal allergic rhinitis due to pollen J30.1 [place] [id number] [place] [address] 12199- 5793 Nov, Alterations of sensations R20.9 [place] [id number] [place] [address] 77834- 8275 Sep, DM neuro manif type II E11.49 ; Hyperlipidemia E78.5 ; Degenerative disc disease, lumbar M51.36 and Chronic pain syndrome G89.4 [place] [id number] [place] [address] 38878- 8211 Sep, Arthritis M19.90 [place] [id number] [place] [address] 61703- 9014 Sep, Type 2 diabetes mellitus without complication E11.9 ; GERD ( gastroesophageal reflux disease) K21.9 ; Arthritis M19.90 and Chronic pain syndrome G89.4 [place] [address], [place] [address]- 7599 Sep, [place] [id number] [place] [address] 75388- 8954 Aug, [place] [id number] [place] [address] 73100- 6437 Aug, Type 2 diabetes mellitus without complication E11.9 [place] [id number] [place] [address] 58975- 8359 Aug, [place] [id number] [place] [address] 01325- 6939 Aug, [place] [id number] [place] [address] 47976- 7687 16 Aug, 2017 [facility] [id number] [place] [address] 71882- 5225 26 Jul, 2017 [facility] [id number] [place] [address] 71198 -6093 22 Jul, 2017 Acute non-recurrent frontal sinusitis J01.10 [facility] [id number] [place] [address] 47581- 1465 20 Jul, 2017 CAD (coronary artery disease) I25.10 and GERD ( gastroesophageal reflux disease) K21.9 [place] [address] 12262- 0611 14 Jul, 2017 Localized swelling, mass and lump, neck R22.1 [place] [address] 90610- 3629 06 Jul, 2017 [place] [id number] [place] [address] 07061- 7084 Jun, Type 2 diabetes mellitus without complication E11.9 ; Primary insomnia F51.01 ; Alterations of sensations R20.9 ; Hyperlipidemia E78.5 ; GERD (gastroesophageal reflux disease) K21.9 ; Essential hypertension I10 ; 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 ; Tobacco abuse Z72.0 ; Tobacco abuse counseling Z71.6 and CAD (coronary artery disease) I25.10 [facility] [id number] [place] [address] 58314- 7601 May, [place] [id number] [place] [address] 59702- 8176 May, Type 2 diabetes mellitus without complication E11.9 [place] [id number] [place] [address] 51450- 8733 May, [place] [id number] [place] [address] 83298- 1481 March, [facility] [id number] [place] [address] 21788- 6051 Feb, [facility] [id number] [place] [address] 97689 -5119 Jan, Acute suppurative otitis media of left ear with spontaneous rupture of tympanic membrane, recurrence not specified H66.012 [facility] [id number] [place] [address] 25910- 3801 17 Dec, 2016 Type 2 diabetes mellitus without complication E11.9 ; Lumbago M54.5 ; Cervicalgia M54.2 ; Hyperlipidemia E78.5 ; GERD ( gastroesophageal reflux disease) K21.9 ; Chronic pain syndrome G89.4 ; Dysuria R30.0 and Essential hypertension I10 [place] [address] 78119- 6974 Oct, [place] [address] 40805- 8088 30 Sep, 2016 Diabetic mononeuropathy associated with type 2 diabetes mellitus E11.41 and Coughing R05 [place] [id number] [place] [address] 91806- 9251 Sep, Diabetic mononeuropathy associated with type 2 diabetes mellitus E11.41 and Coughing R05 [place] [id number] [place] [address] 20319- 1183 Sep, Onychomycosis B35.1 ; Neuritis M79.2 and Type 2 diabetes mellitus without complication E11.9 [place] [id number] [place] [address] 08624- 9737 Sep, [place] [address] 50988- 0893 Sep, Cough R05 ; Seasonal allergic rhinitis due to pollen J30.1 and Acute upper respiratory infection, unspecified J06.9 [place] [id number] [place] [address] 43475- 7941 02 Sep, 2016 [place] [address] 13350- 0127 Aug, [place] [id number] [place] [address] 04873- 4506 Jul, Type 2 diabetes mellitus without complication E11.9 ; Chronic pain G89.29 ; Essential hypertension I10 and Acute non-recurrent maxillary sinusitis J01.00 [place] [id number] [place] [address] 24616- 6267 Jul, Chronic pain syndrome G89.4 ; Lumbago M54.5 and Cervicalgia M54.2 [place] [id number] [place] [address] 44170- 4900 Jul, [place] [address] 18316- 2738 Jul, [place] [id number] [place] [address] 67169- 4140 Jun, Onychomycosis B35.1 ; Onychocryptosis L60.0 and DM neuro manif type II E11.49 [place] [id number] [place] [address] 28060- 9641 Jun, Type 2 diabetes mellitus without complication E11.9 ; Pain in unspecified hip M25.559 ; Other chronic pain G89.29 ; Lumbago M54.5 ; Chronic pain G89.29 ; Insomnia, unspecified G47.00 ; GERD (gastroesophageal reflux disease) K21.9 and Dental caries K02.9 [place] [id number] [place] [address] 83125- 2333 Jun, Type 2 diabetes mellitus without complication E11.9 ; Lumbago M54.5 ; Chronic pain G89.29 ; Insomnia, unspecified G47.00 ; GERD ( gastroesophageal reflux disease) K21.9 ; Dental caries K02.9 ; Pain in unspecified hip M25.559 and Other chronic pain G89.29 [place] [id number] [place] [address] 69844- 8479 May, [place] [address] [place] [address] [place] [address]- 8574 May, Type 2 diabetes mellitus without complication E11.9 ; Essential hypertension I10 ; Chronic pain syndrome G89.4 ; Other seasonal allergic rhinitis J30.2 and Insomnia, unspecified G47.00 [place] [id number] [place] [address] 84512- 5859 Apr, [place] [address] 54506- 9172 Apr, Hypertension I10 and Chronic pain G89.[address] 66062- 4167 March, Onychomycosis B35.1 ; Onychocryptosis L60.0 and Type 2 diabetes mellitus without complication E11.[address] 48594- 8722 March, Type 2 diabetes mellitus without complication E11.9 ; Essential hypertension I10 ; Alterations of sensations R20.9 ; Chronic pain syndrome G89.4 ; Tobacco abuse Z72.0 and Tobacco abuse counseling Z71.[address] 15274- 6534 Feb, Cough R05 ; Type 2 diabetes mellitus without complication E11.9 ; Tobacco abuse counseling Z71.6 and Chronic pain G89.29 [place] [id number] [place] [address] 52116- 0813 Feb, [place] [address] 40083- 3653 Feb, Type 2 diabetes mellitus without complication E11.9 ; Lumbago M54.5 ; Cervicalgia M54.2 ; Degenerative disc disease, lumbar M51.36 and Numbness and tingling of both legs 782.0 [facility] [address] [place] [address] [id number] Jan, Dental caries K02.9 and Encounter for dental examination Z01.20 [place] [address] [place] [address]- 9332 Jan, Type 2 diabetes mellitus without complication E11.9 [place] [address] 12939- 1917 Jan, Type 2 diabetes mellitus without complication E11.9 ; Numbness and tingling of both legs 782.0 ; Fibromyalgia M79.7 ; Hyperlipidemia E78.5 ; Lumbago M54.5 ; Cervicalgia M54.2 ; Hypertension I10 ; CAD (coronary artery disease) I25.10 ; Tobacco abuse Z72.0 ; Tobacco abuse counseling Z71.6 and GERD (gastroesophageal reflux disease) K21.9 [place] [address] 31141- 2249 Jan, [place] [address] 97650- 7619 Dec, [facility] [address] [id number] Dec, Dental examination Z01.20 and Dental caries K02.[address] 14630- 2350 Dec, Edema R60.9 ; Type 2 diabetes mellitus without complication E11.9 ; Hypertension I10 and Mouth pain K13.79 [place] [address] 64841- 0853 Dec, Degenerative disc disease, lumbar M51.36 [place] [address] 93745- 1131 Dec, [place] [address] 55328- 3124 Nov, Insomnia, unspecified G47.00 [place] [address] 42772- 4575 Nov, Type 2 diabetes mellitus without complication E11.9 ; Lumbago M54.5 ; Degenerative disc disease, lumbar M51.36 ; Fibromyalgia M79.7 ; Coronary artery disease I25.10 ; Hyperlipidemia E78.5 ; Controlled substance agreement signed Z79.899 ; Dysuria R30.0 ; Insomnia, unspecified G47.00 ; GERD ( gastroesophageal reflux disease) K21.9 ; Hypertension 401.9 and prison current use of insulin Z79.4 [place] [address] 17843- 0705 Nov, [place] [address] 19205- 3681 Oct, Degenerative disc disease, lumbar M51.36 ; Cervicalgia M54.2 ; Insomnia, unspecified G47.00 ; Decreased GFR R94.4 and GERD ( gastroesophageal reflux disease) K21.9 [place] [address] 19901- 8951 Oct, Lumbago M54.5 [place] [address] 32401- 5017 Oct, Low back pain M54.5 [place] [address] 74346- 6848 Oct, [address] 18980- 7305 Oct, Disorientation R41.[address] 18139- 2130 Oct, Type 2 diabetes mellitus without complication E11.9 ; Disorientation R41.0 and Chest pain R07.9 [place] [address] 19593- 4704 Oct, [place] [address] 19845- 6185 Sep, Low back pain M54.5 [place] [address] 75213- 5641 Sep, Insomnia, unspecified G47.00 [place] [address] [address] [place] [address]- 6018 Aug, Degenerative disc disease, lumbar M51.36 ; Type 2 diabetes mellitus without complication E11.9 and Encounter for immunization Z23 [facility] [id number] [place] [address] 30921- 1318 Aug, [facility] [id number] [place] [address] 54336- 9897 Aug, [facility] [id number] [place] [address] 84556- 7432 Aug, [facility] [id number] [place] [address] 46897- 5175 Jul, [facility] [id number] [place] [address] 19095- 9720 Jun, [facility] [address] 32278- 5992 Jun, Chest pain 786.50 and Lumbago 724.2 [facility] [id number] [place] [address] 07695- 4540 Jun, [facility] [id number] [place] [address] 77640- 8475 Jun, [facility] [address] [place] [address] [id number] Jun, Dental examination V72.2 [facility] [id number] [place] [address] 10203- 5171 Jun, [facility] [id number] [place] [address] 74707- 1785 May, Left shoulder pain 719.41 and Numbness and tingling of both legs 782.0 [facility] [id number] [place] [address] 84178- 4490 May, Cough 786.2 ; Numbness and tingling of both legs 782.0 and Acute rhinitis 460 [facility] [address] [address]- 6554 May, [facility] [address], [place] [address]- 2508 Apr, [facility] [address] [address]- 0841 Apr, Bilateral lower extremity edema 782.3 ; Lumbago 724.2 and Insomnia 780.52 [facility] [address] [address]- 6110 Apr, [facility] [address] [address]- 2571 Apr, [facility] [id number] [address]- 2920 March, Seborrheic keratosis 702.19 and Skin lesion of face 709.9 [facility] [id number] [address]- 2903 March, [facility] [address], [place] [address]- 1392 March, [facility] [address], [place] [address]- 4113 March, [facility] [address], [place] [address]- 5126 March, [facility] [address], [place] [address]- 9571 Feb, [facility] [address], [place] [address]- 3821 Feb, [facility] [address], [place] [address]- 7479 Jan, [facility] [address], [place] [address]- 2774 Jan, [facility] [address], [place] [address]- 4187 16 Jan, 2015 [facility] [place] [facility] [address] [id number] [place] [address]- 8159 16 Jan, 2015 [facility] [place] [facility] [address] [id number] [place] [address]- 4800 16 Jan, 2015 [facility] [place] [facility] [address] [facility] [id number] [place] [address]- 8374 16 Jan, 2015 [facility] [place] [facility] [address] [id number] [place] [address]- 5413 13 Jan, 2015 [facility] [place] [facility] [address] [id number] [place] [address]- 5261 13 Jan, 2015 [facility] [place] [facility] [address] [facility] [id number] [place] [address]- 1079 13 Jan, 2015 [facility] [place] [facility] [address] [facility] [id number] [place] [address]- 2319 13 Jan, 2015 [facility] [place] [facility] [address] [id number] [place] [address]- 8941 10 Jan, 2015 [facility] [place] [facility] [address] [id number] [place] [address]- 3235 27 Dec, 2014 [facility] [place] [facility] [address] [facility] [id number] [place] [address]- 9897 Dec, [facility] [place] [facility] [address] [id number] [place] [address]- 0370 Dec, [facility] [place] [facility] [address] [id number] [place] [address]- 2276 Dec, [facility] [place] [facility] [address] [id number] [place] [address] Dec, [facility] [place] [facility] [address] [facility] [id number] [place] [address] Dec, [facility] [place] [facility] [address] [facility] [id number] [place] [address] 15 Nov, 2014 [facility] [place] [facility] [address] [id number] [place] [address] 15 Nov, 2014 [facility] [place] [facility] [address] [id number] [place] [address] Nov, [facility] [place] [facility] [address] [id number] [place] [address] Nov, [facility] [place] [facility] [address] [id number] [place] [address] Nov, [facility] [place] [facility] [address] [id number] [place] [address] Nov, [facility] [place] [facility] [address] [id number] [place] [address] Nov, [facility] [place] [facility] [address] [id number] [place] [address] Nov, [facility] [place] [facility] [address] [id number] [place] [address] Nov, [facility] [place] [facility] [address] [id number] [place] [address] Nov, [facility] [place] [facility] [address] [id number] [place] [address] Nov, [facility] [place] [facility] [address] [id number] [place] [address] Oct, [facility] [place] [facility] [address] [id number] [place] [address] Oct, [facility] [place] [facility] [address] [id number] [place] [address] Oct, [facility] [place] [facility] [address] [id number] [place] [address] Oct, [facility] [place] [facility] [address] [id number] [place] [address] Oct, [facility] [place] [facility] [address] [id number] [place] [address] Oct, [facility] [place] [facility] [address] [id number] [place] [address] Oct, [facility] [place] [facility] [address] [id number] [place] [address] Oct, [facility] [place] [facility] [address] [id number] [place] [address] Oct, [facility] [place] [facility] [address] [id number] [place] [address] Oct, [facility] [place] [facility] [address] [id number] [place] [address] Sep, [facility] [place] [facility] [address] [id number] [place] [address] Sep, [facility] [place] [facility] [address] [id number] [place] [address] Sep, [facility] [place] [facility] [address] [id number] [place] [address] Sep, [facility] [place] [facility] [address] [id number] [place] [address] Sep, [facility] [place] [facility] [address] [id number] [place] [address] Sep, [facility] [place] [facility] [address] [id number], [place] [address] Sep, [facility] [place] [facility] [address] [id number], [place] [address] 18 Sep, 2014 [facility] [place] [facility] [address] [id number] [place] [address] 17 Sep, 2014 [facility] [place] [facility] [address] [id number], [place] [address] 17 Sep, 2014 [facility] [place] [facility] [address] [id number], [place] [address] 13 Sep, 2014 [facility] [place] [facility] [address] [id number] [place] [address] Sep, [facility] [place] [facility] [address] [id number] [place] [address] Sep, [facility] [place] [facility] [address] [id number] [place] [address] Aug, [facility] [place] [facility] [address] [id number] [place] [address] Aug, [facility] [place] [facility] [address] [id number] [place] [address] Aug, [facility] [place] [facility] [address] [id number] [place] [address] Aug, [facility] [place] [facility] [address] [id number] [place] [address] Aug, [facility] [place] [facility] [address] [id number] [place] [address] Aug, [facility] [place] [facility] [address] [id number] [place] [address] Aug, [facility] [place] [facility] [address] [id number] [place] [address] Aug, [facility] [place] [facility] [address] [id number] [place] [address] Aug, [facility] [place] [facility] [address] [id number] [place] [address] Aug, [facility] [place] [facility] [address] [id number] [place] [address] Aug, [facility] [place] [facility] [address] [id number] [place] [address] Aug, [facility] [place] [facility] [address] [id number] [place] [address] Aug, [facility] [place] [facility] [address] [id number] [place] [address] Aug, [facility] [place] [facility] [address] [id number] [place] [address] Aug, [facility] [place] [facility] [address] [id number] [place] [address] Aug, [facility] [place] [facility] [address] [id number] [place] [address] Aug, [facility] [place] [facility] [address] [id number] [place] [address] Aug, [facility] [place] [facility] [address] [id number] [place] [address] 30 Jul, 2014 [facility] [place] [facility] [address] [id number] [place] [address] 30 Jul, 2013 [facility] [place] [facility] [address] [id number] [place] [address] 24 Jul, 2013 [facility] [place] [facility] [address] [id number] [place] [address] 24 Jul, 2013 [facility] [place] [facility] [address] [id number] [place] [address] 23 Jul, 2013 [facility] [place] [facility] [address] [id number] [place] [address]- [address] 23 Jul, 2013 [facility] [place] [facility] [address] [id number] [place] [address] 15 Jul, 2013 [facility] [place] [facility] [address] [id number] [place] [address] 15 Jul, 2013 [facility] [place] [facility] [address] [id number] [place] [address] 15 Jul, 2013 [facility] [place] [facility] [address] [id number] [place] [address] 15 Jul, 2013 [facility] [place] [facility] [address] [id number] [place] [address] 11 Jul, 2013 [facility] [place] [facility] [address] [id number] [place] [address] Jul, [facility] [address] [facility] [id number] [place] [address] Jul, [facility] [address] [facility] [id number] [place] [address] Jul, IMMUNIZATIONS No Known Immunizations SOCIAL HISTORY Never Assessed REASON FOR VISIT Refill request PLAN OF CARE VITAL SIGNS MEDICATIONS Medication Instructions Dosage Frequency Start Date End Date Duration Status Omeprazole 20 mg Orally Once a day 1 capsule 24h Active Gabapentin 800 MG Orally at bedtime 2 tablets Active RESULTS No Results PROCEDURES No Known procedures INSTRUCTIONS MEDICATIONS ADMINISTERED No Known Medications MEDICAL (GENERAL) HISTORY Type Description Date Medical History hearing loss Medical History hypertension Medical History acute renal failure Medical History hyperlipidemia Medical History type II diabetes Medical History Arthritis Medical History degenerative disease lumbosacral spine Medical History chronic pain r/t DDD Medical History fibromyalgia Medical History AR-stent to LAD Surgical History cholecystectomy 1983 Surgical [...] Influenza illness, hyperglycemia 2017 Hospitalization History [facility]- High BS (Pt left AMA) 01/05/2018 Hospitalization History [facility]- DKA and UTI. Discharged 01/14/2018 Hospitalization History [facility]- Nausea and Vomiting, cannot urinate 01/18/2018 Hospitalization History [facility]-DKA 10/06/48
--- OUTSIDE RECORDS SUMMARY | 2018-11-23 14:35 | XMS REPORT ---
Author Author LADARIUS TRINIDAD [facility] Address [address] [place] [address] Care Team Providers Care Blood Bank Laboratory Technician Name Role Phone LADARIUS TRINIDAD Unavailable PROBLEMS Type Condition ICD9-CM Code AWQ34-PD Code Onset Dates Condition Status SNOMED Code Problem Primary insomnia F51.01 Active 7686094 Problem Other obesity due to excess calories E66.09 Active 717468773 Problem Arthritis M19.90 Active 3159704 Problem Type 2 diabetes mellitus without complication E11.9 Active 143055533 Problem Fibromyalgia M79.7 Active 71943780 Problem Dysphagia, unspecified type R13.10 Active 82606368 Problem Hyperlipidemia E78.5 Active 30151812 Problem Degenerative disc disease, lumbar M51.36 Active 16598249 Problem Diabetic mononeuropathy associated with type 2 diabetes mellitus E11.41 Active 149068760 Problem Body mass index (BMI) of 33.0-33.9 in adult Z68.33 Active 502456196 Problem Type 2 diabetes mellitus with hyperglycemia E11.65 Active [id number] Problem Cervicalgia M54.2 Active 22959835 Problem Essential hypertension I10 Active 36206245 Problem CAD (coronary artery disease) I25.10 Active 97036435 Problem GERD (gastroesophageal reflux disease) K21.9 Active 640148922 Problem 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 Active 698201381 Problem Chronic pain syndrome G89.4 Active 514365463 Problem DM neuro manif type II E11.49 Active 84560018 Problem Vitamin D deficiency E55.9 Active 80983290 Problem Tobacco abuse Z72.0 Active 63240799 Problem Dental caries K02.9 Active 03927432 Problem Alterations of sensations R20.9 Active 085488203 Problem Tobacco abuse counseling Z71.6 Active 552601093 Problem Seasonal allergic rhinitis due to pollen J30.1 Active 97189124 ALLERGIES Substance Reaction Event Type Date Status Zofran Unknown Drug Allergy Sep, Active Reglan restless leg; anything in reglan family Drug Allergy Sep, Active Toradol Unknown Drug Allergy Sep, Active LATEX Unknown Non Drug Allergy Sep, Active ENCOUNTERS Encounter Location Date Diagnosis [place] [id number] [place] [address] 44678- 5543 Oct, [place] [address] 44393- 2906 Oct, [place] [address] 71360- 6194 Sep, Type 2 diabetes mellitus without complication E11.9 ; Peripheral edema R60.9 ; Weakness R53.1 ; Acute pain of right knee M25.561 ; Degenerative disc disease, lumbar M51.36 ; Fibromyalgia M79.7 and Anemia, unspecified type D64.9 [place] [address] 64747- 0529 Sep, [place] [address] 99428- 1140 Sep, [place] [address] 90420- 2936 Sep, [place] [address] 16169- 8898 Sep, Type 2 diabetes mellitus with hyperglycemia E11.65 ; Other microscopic hematuria R31.29 ; Nausea and vomiting, intractability of vomiting not specified, unspecified vomiting type R11.2 and Dizziness R42 [place] [id number] [place] [address] 98484- 0771 Sep, [place] [address] 99457- 3211 Sep, [place] [address] 55752- 6608 Sep, GERD (gastroesophageal reflux disease) K21.9 [place] [address] 33587- 9481 Aug, [place] [id number] [place] [address] 85055- 4187 Aug, DM neuro manif type II E11.49 [place] [id number] [place] [address] 93799- 8309 Aug, [place] [id number] [place] [address] 01017- 7474 Jul, [place] [id number] [place] [address] 50028- 5774 Jul, Elevated serum creatinine R79.89 [place] [address] 16604- 5671 Jul, [place] [id number] [place] [address] 52883- 1634 Jul, [place] [id number] [place] [address] 93688- 3259 Jul, [place] [id number] [place] [address] 30746- 5378 Jun, DM neuro manif type II E11.49 ; Hyperlipidemia E78.5 ; GERD (gastroesophageal reflux disease) K21.9 ; Fibromyalgia M79.7 ; detention current use of insulin Z79.4 ; Chronic pain syndrome G89.4 ; Primary insomnia F51.01 ; Seasonal allergic rhinitis due to pollen J30.1 ; Elevated serum creatinine R79.89 and Dysphagia, unspecified type R13.10 [place] [id number] [place] [address] 43380- 8848 Apr, Type 2 diabetes mellitus with hyperglycemia E11.[address] 38917- 4580 Apr, Hyperlipidemia E78.5 ; Chronic pain syndrome G89.4 ; Cervicalgia M54.2 ; DM neuro manif type II E11.49 ; 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 ; Nausea alone R11.0 ; Essential hypertension I10 ; GERD ( gastroesophageal reflux disease) K21.9 ; CAD (coronary artery disease) I25.10 and Diabetic mononeuropathy associated with type 2 diabetes mellitus E11.41 [place] [address] 13949- 8596 Apr, [place] [address] 17960- 3765 March, Essential hypertension I10 ; DM neuro manif type II E11.49 and GERD (gastroesophageal reflux disease) K21.9 [place] [id number] [place] [address] 60487- 0638 March, DM neuro manif type II E11.49 and GERD (gastroesophageal reflux disease) K21.9 [place] [address] 97215- 4104 March, [place] [address] 99735- 5996 Feb, Tobacco abuse Z72.0 [place] [address] 82870- 0338 Feb, Tobacco abuse Z72.0 [place] [address] 16798- 9325 Feb, Hypokalemia E87.6 [place] [address] 75891- 5964 Feb, Hyperlipidemia E78.5 ; Essential hypertension I10 ; DM neuro manif type II E11.49 ; Fibromyalgia M79.7 ; Acute non-recurrent frontal sinusitis J01.10 ; Other obesity due to excess calories E66.09 and Body mass index (BMI) of 33.0-33.9 in adult Z68.33 [place] [address] 26625- 3960 Jan, Dysuria R30.0 [place] [address] 63585- 9962 Jan, Dysuria R30.0 [place] [address] 66151- 1556 02 Jan, 2018 Acute cystitis with hematuria N30.01 ; DM neuro manif type II E11.49 ; 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 ; Essential hypertension I10 and Hospital discharge follow-up Z09 [place] [address] 27401- 8293 27 Dec, 2017 Chest pain, unspecified type R07.9 ; Dehydration E86.0 and Anuria R34 [place] [address] 30360- 0730 Dec, [place] [address] 71525- 7910 22 Dec, 2017 Hyperglycemia R73.9 ; Dehydration E86.0 and Acute cystitis with hematuria N30.01 [facility] [address] 14686 -2885 Dec, [facility] [address] 13902 -5995 Dec, [facility] [address] 98778 -6164 Dec, [facility] [address] 80635 -4676 16 Dec, 2017 Dysuria R30.0 ; Acute cystitis with hematuria N30.01 and Weakness R53.1 [place] [address] 88608- 2096 Dec, [place] [address] 53658- 2126 Nov, [place] [address] 98597- 4845 Nov, [place] [address] 27111- 4969 Nov, Essential hypertension I10 ; DM neuro manif type II E11.49 ; detention current use of insulin Z79.4 ; Tobacco abuse Z72.0 ; Hyperlipidemia E78.5 ; Non-adherence to medical treatment Z91.19 ; GERD (gastroesophageal reflux disease) K21.9 ; Degenerative disc disease, lumbar M51.36 ; Fibromyalgia M79.7 ; Chronic pain syndrome G89.4 ; Dental caries K02.9 and Seasonal allergic rhinitis due to pollen J30.[address] 37841- 2174 Nov, Alterations of sensations R20.[address] 65830- 4977 Sep, DM neuro manif type II E11.49 ; Hyperlipidemia E78.5 ; Degenerative disc disease, lumbar M51.36 and Chronic pain syndrome G89.[address] 82465- 8430 Sep, Arthritis M19.[address] 86864- 5375 Sep, Type 2 diabetes mellitus without complication E11.9 ; GERD ( gastroesophageal reflux disease) K21.9 ; Arthritis M19.90 and Chronic pain syndrome G89.4 [place] [address] 32938- 7018 Sep, [place] [id number] [place] [address] 86318- 3146 Aug, [place] [address] 72309- 2939 Aug, Type 2 diabetes mellitus without complication E11.[address] 83040- 2444 Aug, [place] [address] 27729- 0412 Aug, [address] 98892- 4445 Aug, [facility] [address] [address]- 7519 26 Jul, 2017 [facility] [id number] [place] [address] 72926 -0370 22 Jul, 2017 Acute non-recurrent frontal sinusitis J01.10 [facility] [id number] [place] [address] 56105- 5141 20 Jul, 2017 CAD (coronary artery disease) I25.10 and GERD ( gastroesophageal reflux disease) K21.9 [place] [id number] [place] [address] 32238- 7755 14 Jul, 2017 Localized swelling, mass and lump, neck R22.1 [place] [id number] [place] [address] 98786- 9256 06 Jul, 2017 [place] [id number] [place] [address] 95283- 0241 Jun, Type 2 diabetes mellitus without complication E11.9 ; Primary insomnia F51.01 ; Alterations of sensations R20.9 ; Hyperlipidemia E78.5 ; GERD (gastroesophageal reflux disease) K21.9 ; Essential hypertension I10 ; detention current use of insulin Z79.4 ; Tobacco abuse Z72.0 ; Tobacco abuse counseling Z71.6 and CAD (coronary artery disease) I25.10 [facility] [address] [address]- 8243 May, [place] [id number] [place] [address] 77676- 8089 May, Type 2 diabetes mellitus without complication E11.9 [place] [id number] [place] [address] 55095- 4854 May, [place] [id number] [place] [address] 50330- 9629 March, [facility] [id number] [place] [address] 08997- 7318 Feb, [facility] [id number] [place] [address] 63916 -2425 Jan, Acute suppurative otitis media of left ear with spontaneous rupture of tympanic membrane, recurrence not specified H66.012 [facility] [id number] [place] [address] 31662- 7976 17 Dec, 2016 Type 2 diabetes mellitus without complication E11.9 ; Lumbago M54.5 ; Cervicalgia M54.2 ; Hyperlipidemia E78.5 ; GERD ( gastroesophageal reflux disease) K21.9 ; Chronic pain syndrome G89.4 ; Dysuria R30.0 and Essential hypertension I10 [place] [address] 11289- 4639 Oct, [place] [address] 17576- 8293 Sep, Diabetic mononeuropathy associated with type 2 diabetes mellitus E11.41 and Coughing R05 [place] [address] 27391- 0862 Sep, Diabetic mononeuropathy associated with type 2 diabetes mellitus E11.41 and Coughing R05 [place] [address] 48729- 1533 Sep, Onychomycosis B35.1 ; Neuritis M79.2 and Type 2 diabetes mellitus without complication E11.9 [place] [id number] [place] [address] 15744- 8436 Sep, [place] [address] 88956- 8064 Sep, Cough R05 ; Seasonal allergic rhinitis due to pollen J30.1 and Acute upper respiratory infection, unspecified J06.9 [place] [address] 53544- 5849 Sep, [place] [address] 69918- 8648 Aug, [place] [address] [place] [id number] [place] [address] 38653- 0412 Jul, Type 2 diabetes mellitus without complication E11.9 ; Chronic pain G89.29 ; Essential hypertension I10 and Acute non-recurrent maxillary sinusitis J01.00 [place] [id number] [place] [address] 25421- 7162 Jul, Chronic pain syndrome G89.4 ; Lumbago M54.5 and Cervicalgia M54.2 [place] [id number] [place] [address] 85756- 9397 Jul, [place] [id number] [place] [address] 74150- 5434 Jul, [place] [id number] [place] [address] 05185- 5969 Jun, Onychomycosis B35.1 ; Onychocryptosis L60.0 and DM neuro manif type II E11.49 [place] [id number] [place] [address] 65753- 7193 Jun, Type 2 diabetes mellitus without complication E11.9 ; Pain in unspecified hip M25.559 ; Other chronic pain G89.29 ; Lumbago M54.5 ; Chronic pain G89.29 ; Insomnia, unspecified G47.00 ; GERD (gastroesophageal reflux disease) K21.9 and Dental caries K02.9 [place] [id number] [place] [address] 97491- 2343 Jun, Type 2 diabetes mellitus without complication E11.9 ; Lumbago M54.5 ; Chronic pain G89.29 ; Insomnia, unspecified G47.00 ; GERD ( gastroesophageal reflux disease) K21.9 ; Dental caries K02.9 ; Pain in unspecified hip M25.559 and Other chronic pain G89.29 [place] [id number] [place] [address] 49576- 4749 May, [place] [id number] [place] [address] 87649- 2725 May, Type 2 diabetes mellitus without complication E11.9 ; Essential hypertension I10 ; Chronic pain syndrome G89.4 ; Other seasonal allergic rhinitis J30.2 and Insomnia, unspecified G47.00 [place] [id number] [place] [address] 50835- 1700 Apr, [place] [address] 20206- 7378 Apr, Hypertension I10 and Chronic pain G89.29 [place] [address] 91949- 3997 March, Onychomycosis B35.1 ; Onychocryptosis L60.0 and Type 2 diabetes mellitus without complication E11.9 [place] [address] 96891- 1273 March, Type 2 diabetes mellitus without complication E11.9 ; Essential hypertension I10 ; Alterations of sensations R20.9 ; Chronic pain syndrome G89.4 ; Tobacco abuse Z72.0 and Tobacco abuse counseling Z71.6 [place] [id number] [place] [address] 38304- 9993 Feb, Cough R05 ; Type 2 diabetes mellitus without complication E11.9 ; Tobacco abuse counseling Z71.6 and Chronic pain G89.29 [place] [id number] [place] [address] 36751- 1229 Feb, [address] 36193- 6207 Feb, Type 2 diabetes mellitus without complication E11.9 ; Lumbago M54.5 ; Cervicalgia M54.2 ; Degenerative disc disease, lumbar M51.36 and Numbness and tingling of both legs 782.0 [facility] [id number] [place] [address] [id number] Jan, Dental caries K02.9 and Encounter for dental examination Z01.20 [place] [id number] [place] [address] 78771- 0541 Jan, Type 2 diabetes mellitus without complication E11.9 [place] [id number] [place] [address] 36424- 7525 Jan, Type 2 diabetes mellitus without complication E11.9 ; Numbness and tingling of both legs 782.0 ; Fibromyalgia M79.7 ; Hyperlipidemia E78.5 ; Lumbago M54.5 ; Cervicalgia M54.2 ; Hypertension I10 ; CAD (coronary artery disease) I25.10 ; Tobacco abuse Z72.0 ; Tobacco abuse counseling Z71.6 and GERD (gastroesophageal reflux disease) K21.9 [place] [id number] [place] [address] 07070- 8028 Jan, [place] [address] 12829- 2302 Dec, [facility] [address] [id number] Dec, Dental examination Z01.20 and Dental caries K02.9 [place] [id number] [place] [address] 09180- 5070 Dec, Edema R60.9 ; Type 2 diabetes mellitus without complication E11.9 ; Hypertension I10 and Mouth pain K13.79 [place] [id number] [place] [address] 94293- 5907 16 Dec, 2015 Degenerative disc disease, lumbar M51.36 [place] [id number] [place] [address] 08674- 8548 Dec, [place] [id number] [place] [address] 50529- 5880 Nov, Insomnia, unspecified G47.[address] 05798- 7923 Nov, Type 2 diabetes mellitus without complication E11.9 ; Lumbago M54.5 ; Degenerative disc disease, lumbar M51.36 ; Fibromyalgia M79.7 ; Coronary artery disease I25.10 ; Hyperlipidemia E78.5 ; Controlled substance agreement signed Z79.899 ; Dysuria R30.0 ; Insomnia, unspecified G47.00 ; GERD ( gastroesophageal reflux disease) K21.9 ; Hypertension 401.9 and 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 [place] [address] [place] [id number]- 7543 Nov, [place] [address] 68118- 1385 Oct, Degenerative disc disease, lumbar M51.36 ; Cervicalgia M54.2 ; Insomnia, unspecified G47.00 ; Decreased GFR R94.4 and GERD ( gastroesophageal reflux disease) K21.9 [place] [address] [place] [address]26715- 8154 Oct, Lumbago M54.5 [place] [address] 07337- 7545 Oct, Low back pain M54.5 [place] [address] 92781- 9200 Oct, [place] [address] 11579- 7655 Oct, Disorientation R41.[address] 49590- 6988 Oct, Type 2 diabetes mellitus without complication E11.9 ; Disorientation R41.0 and Chest pain R07.9 [place] [address] 77948- 1798 Oct, [place] [address] 85357- 2993 Sep, Low back pain M54.5 [place] [address] 28159- 7583 Sep, Insomnia, unspecified G47.00 [place] [address] 08687- 6696 Aug, Degenerative disc disease, lumbar M51.36 ; Type 2 diabetes mellitus without complication E11.9 and Encounter for immunization Z23 [facility] [id number] [place] [address] 15355- 6855 Aug, [facility] [address] 00621- 4095 Aug, [facility] [address] 80394- 2261 Aug, [facility] [address] 28961- 9768 Jul, [facility] [address] 28265- 2074 Jun, [facility] [address] 06683- 9271 Jun, Chest pain 786.50 and Lumbago 724.2 [facility] [address] 99100- 8009 Jun, [facility] [id number] [place] [address] 52277- 7399 Jun, [facility] [id number] [place] [address] [id number] Jun, Dental examination V72.2 [facility] [id number] [place] [address] 10528- 6530 Jun, [facility] [address] 46545- 1001 May, Left shoulder pain 719.41 and Numbness and tingling of both legs 782.0 [place] [address] 27194- 7113 May, Cough 786.2 ; Numbness and tingling of both legs 782.0 and Acute rhinitis 460 [facility] [address] 29166- 2311 May, [facility] [address], [place] [address]- 3928 Apr, [facility] [id number] [address]- 0346 Apr, Bilateral lower extremity edema 782.3 ; Lumbago 724.2 and Insomnia 780.52 [facility] [id number] [address]- 9423 Apr, [facility] [id number] [address]- 5573 Apr, [facility] [id number] [place] [address] 26535- 0652 March, Seborrheic keratosis 702.19 and Skin lesion of face 709.9 [facility] [address], [place] [address]- 7373 March, [facility] [id number] [address]- 5868 March, [facility] [address], [place] [address]- 9780 March, [facility] [id number] [address]- 2537 March, [facility] [address] [address]- 2061 Feb, [facility] [address] [address]- 5628 Feb, [facility] [address] [address]- 2259 Jan, [facility] [address], [place] [address]- 8308 Jan, [facility] [address], [place] [address]- 9494 Jan, [facility] [id number] [place] [address]- 6169 16 Jan, 2014 [facility] [place] [facility] [address] [id number] [place] [address]- 5879 16 Jan, 2015 [facility] [place] [facility] [address] [id number] [place] [address]- 1576 16 Jan, 2014 [facility] [place] [facility] [address] [id number] [place] [address]- 5348 13 Jan, 2014 [facility] [place] [facility] [address] [id number] [place] [address]- 0484 13 Jan, 2014 [facility] [place] [facility] [address] [id number] [place] [address]- 7530 13 Jan, 2015 [facility] [place] [facility] [address] [id number] [place] [address]- 6053 13 Jan, 2015 [facility] [place] [facility] [address] [id number] [place] [address]- 8879 10 Jan, 2015 [facility] [place] [facility] [address] [id number] [place] [address]- 5825 27 Dec, 2014 [facility] [place] [facility] [address] [id number] [place] [address]- 7410 27 Dec, 2014 [facility] [place] [facility] [address] [id number] [place] [address]- 1303 26 Dec, 2014 [facility] [place] [facility] [address] [id number] [place] [address]- 7037 26 Dec, 2014 [facility] [place] [facility] [address] [id number] [place] [address] 2545 Dec, [facility] [place] [facility] [address] [id number] [place] [address]- 5899 Dec, [facility] [place] [facility] [address] [id number] [place] [address]- 6476 15 Nov, 2014 [facility] [place] [facility] [address] [id number] [place] [address]- 5170 15 Nov, 2014 [facility] [place] [facility] [address] [id number] [place] [address]- 2272 14 Nov, 2014 [facility] [place] [facility] [address] [id number] [place] [address]- 2693 14 Nov, 2014 [facility] [place] [facility] [address] [id number] [place] [address]- 4651 Nov, [facility] [place] [facility] [address] [id number] [place] [address] Nov, [facility] [place] [facility] [address] [id number] [place] [address] Nov, [facility] [place] [facility] [address] [id number] [place] [address] Nov, [facility] [place] [facility] [address] [id number] [place] [address] Nov, [facility] [place] [facility] [address] [id number] [place] [address] Nov, [facility] [place] [facility] [address] [id number] [place] [address] Nov, [facility] [place] [facility] [address] [id number] [place] [address] Oct, [facility] [place] [facility] [address] [id number] [place] [address] Oct, [facility] [place] [facility] [address] [id number], [place] [address] Oct, [facility] [place] [facility] [address] [id number] [place] [address] Oct, [facility] [place] [facility] [address] [id number] [place] [address] Oct, [facility] [place] [facility] [address] [id number] [place] [address] Oct, [facility] [place] [facility] [address] [id number] [place] [address] 09 Oct, 2014 [facility] [place] [facility] [address] [id number] [place] [address] Oct, [facility] [place] [facility] [address] [id number] [place] [address] Oct, [facility] [place] [facility] [address] [id number] [place] [address] Oct, [facility] [place] [facility] [address] [id number] [place] [address] Sep, [facility] [place] [facility] [address] [address] [id number] [place] [address] Sep, [facility] [place] [facility] [address] [id number] [place] [address] Sep, [facility] [place] [facility] [address] [id number] [place] [address] Sep, [facility] [place] [facility] [address] [id number] [place] [address] 18 Sep, 2014 [facility] [place] [facility] [address] [id number] [place] [address] Sep, [facility] [place] [facility] [address] [facility] [place] [id number] [place] [address] 18 Sep, 2014 [facility] [place] [facility] [address] [id number] [place] [address] 18 Sep, 2014 [facility] [place] [facility] [address] [id number], [place] [address] 17 Sep, 2014 [facility] [place] [facility] [address] [id number] [place] [address] 17 Sep, 2014 [facility] [place] [facility] [address] [id number] [place] [address] 13 Sep, 2014 [facility] [place] [facility] [address] [id number], [place] [address] 11 Sep, 2014 [facility] [place] [facility] [address] [id number] [place] [address] Sep, [facility] [place] [facility] [address] [id number] [place] [address] Aug, [facility] [place] [facility] [address] [id number] [place] [address] Aug, [facility] [place] [facility] [address] [id number] [place] [address] Aug, [facility] [place] [facility] [address] [id number] [place] [address] Aug, [facility] [place] [facility] [address] [id number] [place] [address] Aug, [facility] [place] [facility] [address] [id number] [place] [address] Aug, [facility] [place] [facility] [address] [id number] [place] [address] Aug, [facility] [place] [facility] [address] [id number] [place] [address] Aug, [facility] [place] [facility] [address] [id number] [place] [address] Aug, [facility] [place] [facility] [address] [id number] [place] [address] Aug, [facility] [place] [facility] [address] [id number] [place] [address] Aug, [facility] [place] [facility] [address] [id number] [place] [address] Aug, [facility] [place] [facility] [address] [id number] [place] [address] Aug, [facility] [place] [facility] [address] [id number] [place] [address] Aug, [facility] [place] [facility] [address] [id number], [place] [address] Aug, [facility] [place] [facility] [address] [id number] [place] [address] Aug, [facility] [place] [facility] [address] [id number] [place] [address] Aug, [facility] [place] [facility] [address] [id number] [place] [address] Aug, [facility] [place] [facility] [address] [id number] [place] [address] 30 Jul, 2013 [facility] [place] [facility] [address] [id number] [place] [address] 30 Jul, 2013 [facility] [place] [facility] [address] [id number] [place] [address] 24 Jul, 2013 [facility] [place] [facility] [address] [id number] [place] [address] 24 Jul, 2013 [facility] [place] [facility] [address] [id number] [place] [address] 23 Jul, 2013 [facility] [place] [facility] [address] [id number] [place] [address] 23 Jul, 2013 [facility] [place] [facility] [address] [id number] [place] [address] 15 Jul, 2013 [facility] [place] [facility] [address] [id number], [place] [address] 15 Jul, 2013 [facility] [place] [facility] [address] [id number], [place] [address] 15 Jul, 2013 [facility] [place] [facility] [address] [id number] [place] [address] 15 Jul, 2013 [facility] [place] [facility] [address] [id number] [place] [address] 11 Jul, 2013 [facility] [place] [facility] [address] [id number] [place] [address] 11 Jul, 2013 [facility] [place] [facility] [address] [facility] [place] [id number] [place] [id number] Jul, [facility] [address] [facility] [place] 2[place] [id number], [place] [address] Jul, IMMUNIZATIONS No Known Immunizations SOCIAL HISTORY Never Assessed REASON FOR VISIT [facility] follow up Micah Silva, Pt stats that she has fallen x8 times over the last weekend and her right shoulder is bothering her. Says she has a torn rotator cuff in the past Micah Silva Pt states when she fell she hurt her right knee as well Micah SILVA, Swelling in both legs with the left being worse than the right with pain to the touch Micah SILVA PLAN OF CARE Activity Details Follow Up 4 Weeks Reason:anemia Pending Test HEMOGLOBIN (IN HOUSE) VITAL SIGNS Height 60 in 2018-10-14 Weight 158.6 lbs 2018-10-14 Temperature 98.6 degrees Fahrenheit 2018-10-14 Heart Rate 84 bpm 2018-10-14 Respiratory Rate 20 2018-10-14 BMI 30.97 kg/m2 2018-10-14 Blood pressure systolic 108 mmHg 2018-10-14 Blood pressure diastolic 42 mmHg 2018-10-14 MEDICATIONS Medication Instructions Dosage Frequency Start Date End Date Duration Status Levemir FlexTouch 100 UNIT/ML Subcutaneous 2 times a day 20 UNITS 12h Active Omeprazole 20 mg Orally Once a day 1 capsule 24h Active Amlodipine Besylate 10 MG Orally Once a day 1 tablet 24h 30 day(s) Active Humalog 100 UNIT/ML per sliding scale Active Furosemide 20 mg Orally Once a day 1 tablet 24h Sep, 7 days Active Atorvastatin Calcium 40 mg Orally Once a day 1 tablet 24h March, Active Promethazine HCl 25 MG Rectal every 12 hrs 1 suppository as needed 12h 30 day(s) Not-Taking Erythromycin Ethylsuccinate 400 MG as directed Not-Taking Ranitidine HCl 150 MG Orally twice a day 1 tablet 12h Not-Taking Mirtazapine 15 MG Orally Once a day 1 tablet at bedtime 24h 30 day(s ) Active Tradjenta 5 MG TAKE ONE TABLET BY MOUTH ONCE DAILY Active Protonix 40 MG Orally Once a day 1 tablet 24h 30 day(s) Not-Taking Aspirin 81 MG Orally Once a day 1 tablet 24h Active Gabapentin 800 MG Orally at bedtime 2 tablets Active Potassium Chloride ER 20 meq Orally Once a day 1 tablet with food 24h Sep, 7 days Active Oxycodone HCl 10 mg Orally once a day 1 tablet as needed 24h Active Percocet 10-325 MG Orally every 4- 6 hrs 1 tablet as needed Active RESULTS No Results PROCEDURES Procedure Date Ordered Result Body Site HEMOGLOBIN Oct 14, 2018 [facility] VISIT ESTABLISHED PATIENT Oct 14, 2018 INSTRUCTIONS MEDICATIONS ADMINISTERED No Known Medications [...] Influenza illness, hyperglycemia 2017 Hospitalization History ED [place]- High BS (Pt left AMA) 01/05/2018 Hospitalization History [facility], operated by [facility]- DKA and UTI. Discharged 01/14/2018 Hospitalization History ED [place]- Nausea and Vomiting, cannot urinate 01/18/2018 Hospitalization History [facility] 10/06/48
--- OUTSIDE RECORDS SUMMARY | 2018-11-23 14:36 | XMS REPORT ---
Author Author LADARIUS TRINIDAD [facility] Address [address] [place] [address] Care Team Providers Care Private Sector Executive Name Role Phone LADARIUS TRINIDAD Unavailable PROBLEMS Type Condition ICD9-CM Code [id number] Code Onset Dates Condition Status SNOMED Code Problem Seasonal allergic rhinitis due to pollen J30.1 Active 35621396 Problem Arthritis M19.90 Active 5163481 Problem Primary insomnia F51.01 Active 4294945 Problem Dysphagia, unspecified type R13.10 Active 52214148 Problem Hyperlipidemia E78.5 Active 96070202 Problem Type 2 diabetes mellitus with hyperglycemia E11.65 Active [id number] Problem Degenerative disc disease, lumbar M51.36 Active 49593520 Problem Alterations of sensations R20.9 Active 953417291 Problem Body mass index (BMI) of 33.0-33.9 in adult Z68.33 Active 844591968 Problem Other obesity due to excess calories E66.09 Active 919816571 Problem Cervicalgia M54.2 Active 89425368 Problem Diabetic mononeuropathy associated with type 2 diabetes mellitus E11.41 Active 715469845 Problem longterm current use of insulin Z79.4 Active 973783911 Problem Essential hypertension I10 Active 01954473 Problem Fibromyalgia M79.7 Active 91318423 Problem GERD (gastroesophageal reflux disease) K21.9 Active 658378218 Problem Tobacco abuse counseling Z71.6 Active 642112077 Problem Chronic pain syndrome G89.4 Active 709908457 Problem CAD (coronary artery disease) I25.10 Active 08576010 Problem DM neuro manif type II E11.49 Active 80844948 Problem Vitamin D deficiency E55.9 Active 89735648 Problem Tobacco abuse Z72.0 Active 28807101 Problem Dental caries K02.9 Active 79672059 ALLERGIES No Information ENCOUNTERS Encounter Location Date Diagnosis [facility] [address] [facility] [id number] [address] Oct, [facility] [address] [place] [id number] [place] [address] 99199- 9410 Sep, [facility] [address] 37346- 0031 Sep, [facility] [address] 86073- 0640 Sep, [facility] [address] 63735- 4371 Sep, [facility] [id number] [place] [address] 07347- 5308 Sep, Type 2 diabetes mellitus with hyperglycemia E11.65 ; Other microscopic hematuria R31.29 ; Nausea and vomiting, intractability of vomiting not specified, unspecified vomiting type R11.2 and Dizziness R42 [facility] [address] 52543- 3186 Sep, [facility] [id number] [place] [address] 59512- 6515 Sep, [facility] [address] 91642- 2790 Sep, GERD (gastroesophageal reflux disease) K21.9 [facility] [id number] [place] [address] 93575- 4479 Aug, [facility] [id number] [place] [address] 77833- 2710 Aug, DM neuro manif type II E11.49 [facility] [id number] [place] [address] 01284- 4280 Aug, [facility] [address] 37381- 1071 Jul, [facility] [id number] [place] [address] 41217- 4683 Jul, Elevated serum creatinine R79.89 [facility] [address] [place] [address] 50987- 4634 Jul, [address] 15475- 2806 Jul, [place] [id number] [place] [address] 68265- 3112 Jul, [place] [id number] [place] [address] 44519- 5926 Jun, DM neuro manif type II E11.49 ; Hyperlipidemia E78.5 ; GERD (gastroesophageal reflux disease) K21.9 ; Fibromyalgia M79.7 ; 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 ; Chronic pain syndrome G89.4 ; Primary insomnia F51.01 ; Seasonal allergic rhinitis due to pollen J30.1 ; Elevated serum creatinine R79.89 and Dysphagia, unspecified type R13.10 [place] [id number] [place] [address] 70501- 6073 Apr, Type 2 diabetes mellitus with hyperglycemia E11.65 [place] [id number] [place] [address] 04585- 8428 Apr, Hyperlipidemia E78.5 ; Chronic pain syndrome G89.4 ; Cervicalgia M54.2 ; DM neuro manif type II E11.49 ; longterm current use of insulin Z79.4 ; Nausea alone R11.0 ; Essential hypertension I10 ; GERD ( gastroesophageal reflux disease) K21.9 ; CAD (coronary artery disease) I25.10 and Diabetic mononeuropathy associated with type 2 diabetes mellitus E11.41 [place] [address] [place] [address] 81188- 2274 Apr, [place] [id number] [place] [address] 21515- 2896 March, Essential hypertension I10 ; DM neuro manif type II E11.49 and GERD (gastroesophageal reflux disease) K21.9 [place] [id number] [place] [address] 84808- 2943 March, DM neuro manif type II E11.49 and GERD (gastroesophageal reflux disease) K21.9 [place] [address] 19567- 1310 March, [place] [address] 97006- 9351 Feb, Tobacco abuse Z72.0 [place] [address] 14061- 0682 Feb, Tobacco abuse Z72.0 [place] [address] 12750- 1036 Feb, Hypokalemia E87.6 [place] [address] 00679- 5694 Feb, Hyperlipidemia E78.5 ; Essential hypertension I10 ; DM neuro manif type II E11.49 ; Fibromyalgia M79.7 ; Acute non-recurrent frontal sinusitis J01.10 ; Other obesity due to excess calories E66.09 and Body mass index (BMI) of 33.0-33.9 in adult Z68.33 [place] [address] 18959- 5917 Jan, Dysuria R30.0 [place] [address] 91600- 2154 Jan, Dysuria R30.0 [place] [address] 20293- 2388 Jan, Acute cystitis with hematuria N30.01 ; DM neuro manif type II E11.49 ; 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 ; Essential hypertension I10 and Hospital discharge follow-up Z09 [place] [address] 35896- 2610 Dec, Chest pain, unspecified type R07.9 ; Dehydration E86.0 and Anuria R34 [address] 41757- 2587 Dec, [address] 47240- 3091 Dec, Hyperglycemia R73.9 ; Dehydration E86.0 and Acute cystitis with hematuria N30.01 [facility] [address] 79892 -1008 Dec, [facility] [address] 15129 -9251 Dec, [facility] [address] 62791 -2836 Dec, [facility] [address] 36609 -9559 Dec, Dysuria R30.0 ; Acute cystitis with hematuria N30.01 and Weakness R53.[address] 52332- 7494 Dec, [address] 26415- 3681 Nov, [address] 94940- 5339 Nov, [address] 06435- 3611 Nov, Essential hypertension I10 ; DM neuro manif type II E11.49 ; longterm current use of insulin Z79.4 ; Tobacco abuse Z72.0 ; Hyperlipidemia E78.5 ; Non-adherence to medical treatment Z91.19 ; GERD (gastroesophageal reflux disease) K21.9 ; Degenerative disc disease, lumbar M51.36 ; Fibromyalgia M79.7 ; Chronic pain syndrome G89.4 ; Dental caries K02.9 and Seasonal allergic rhinitis due to pollen J30.[address] 46096- 6961 Nov, Alterations of sensations R20.[address] 14580- 8259 Sep, DM neuro manif type II E11.49 ; Hyperlipidemia E78.5 ; Degenerative disc disease, lumbar M51.36 and Chronic pain syndrome G89.4 [facility] [address] 33879- 6117 Sep, Arthritis M19.90 [facility] [address] 02970- 1625 Sep, Type 2 diabetes mellitus without complication E11.9 ; GERD ( gastroesophageal reflux disease) K21.9 ; Arthritis M19.90 and Chronic pain syndrome G89.4 [facility] [address] 01840- 2130 Sep, [facility] [address] 16208- 7547 Aug, [facility] [address] 32569- 6701 Aug, Type 2 diabetes mellitus without complication E11.9 [facility] [id number] [place] [address] 95312- 1579 Aug, [facility] [address] 35296- 7585 Aug, [facility] [id number] [place] [address] 41787- 2050 Aug, [facility] [id number] [place] [address] 24308- 3615 Jul, [facility] [id number] [place] [address] 60116 -1223 22 Jul, 2017 Acute non-recurrent frontal sinusitis J01.10 [facility] [id number] [place] [address] 54130- 9400 20 Jul, 2017 CAD (coronary artery disease) I25.10 and GERD ( gastroesophageal reflux disease) K21.9 [facility] [id number] [place] [address] 55106- 5219 14 Jul, 2017 Localized swelling, mass and lump, neck R22.1 [place] [id number] [place] [address] 09141- 4920 06 Jul, 2017 [place] [address] 13562- 5187 15 Jun, 2017 Type 2 diabetes mellitus without complication E11.9 ; Primary insomnia F51.01 ; Alterations of sensations R20.9 ; Hyperlipidemia E78.5 ; GERD (gastroesophageal reflux disease) K21.9 ; Essential hypertension I10 ; 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 ; Tobacco abuse Z72.0 ; Tobacco abuse counseling Z71.6 and CAD (coronary artery disease) I25.10 [place] [address] 90446- 8843 May, [place] [address] 19791- 0678 May, Type 2 diabetes mellitus without complication E11.9 [place] [address] 21002- 0331 May, [place] [address] 81006- 2854 March, [place] [address] 99712- 3458 Feb, [facility] [id number] [place] [address] 77238 -3479 Jan, Acute suppurative otitis media of left ear with spontaneous rupture of tympanic membrane, recurrence not specified H66.012 [place] [id number] [place] [address] 42371- 5933 17 Dec, 2016 Type 2 diabetes mellitus without complication E11.9 ; Lumbago M54.5 ; Cervicalgia M54.2 ; Hyperlipidemia E78.5 ; GERD ( gastroesophageal reflux disease) K21.9 ; Chronic pain syndrome G89.4 ; Dysuria R30.0 and Essential hypertension I10 [place] [address] [place] [address]- 6624 Oct, [place] [id number] [place] [address] 75158- 1989 30 Sep, 2016 Diabetic mononeuropathy associated with type 2 diabetes mellitus E11.41 and Coughing R05 [place] [id number] [place] [address] 44036- 0339 Sep, Diabetic mononeuropathy associated with type 2 diabetes mellitus E11.41 and Coughing R05 [place] [id number] [place] [address] 21544- 5770 18 Sep, 2016 Onychomycosis B35.1 ; Neuritis M79.2 and Type 2 diabetes mellitus without complication E11.9 [place] [address] 41989- 9717 Sep, [place] [address] 65652- 7066 Sep, Cough R05 ; Seasonal allergic rhinitis due to pollen J30.1 and Acute upper respiratory infection, unspecified J06.9 [place] [address] [id number] [place] [address] 38288- 1760 Sep, [place] [id number] [place] [address] 70930- 1041 Aug, [place] [id number] [place] [address] 01216- 9098 Jul, Type 2 diabetes mellitus without complication E11.9 ; Chronic pain G89.29 ; Essential hypertension I10 and Acute non-recurrent maxillary sinusitis J01.00 [place] [address] [id number] [place] [address] 40052- 7685 Jul, Chronic pain syndrome G89.4 ; Lumbago M54.5 and Cervicalgia M54.2 [place] [address] [id number] [place] [address] 31163- 5319 Jul, [place] [address] 85161- 6686 Jul, [place] [address] [place] [address] 20398- 9290 Jun, Onychomycosis B35.1 ; Onychocryptosis L60.0 and DM neuro manif type II E11.49 [place] [address] [place] [address] 58684- 3878 Jun, Type 2 diabetes mellitus without complication E11.9 ; Pain in unspecified hip M25.559 ; Other chronic pain G89.29 ; Lumbago M54.5 ; Chronic pain G89.29 ; Insomnia, unspecified G47.00 ; GERD (gastroesophageal reflux disease) K21.9 and Dental caries K02.9 [place] [address] [place] [address] 43402- 2043 Jun, Type 2 diabetes mellitus without complication E11.9 ; Lumbago M54.5 ; Chronic pain G89.29 ; Insomnia, unspecified G47.00 ; GERD ( gastroesophageal reflux disease) K21.9 ; Dental caries K02.9 ; Pain in unspecified hip M25.559 and Other chronic pain G89.29 [place] [address] [id number] [place] [address] 81494- 5732 May, [place] [address] [place] [address] 51026- 6628 May, Type 2 diabetes mellitus without complication E11.9 ; Essential hypertension I10 ; Chronic pain syndrome G89.4 ; Other seasonal allergic rhinitis J30.2 and Insomnia, unspecified G47.00 [place] [address] [place] [address] 31740- 8084 Apr, [place] [address] [id number] [place] [address] 34315- 0924 Apr, Hypertension I10 and Chronic pain G89.29 [place] [address] [place] [address] 59735- 5543 March, Onychomycosis B35.1 ; Onychocryptosis L60.0 and Type 2 diabetes mellitus without complication E11.9 [place] [address] [id number] [place] [address] 55751- 1322 March, Type 2 diabetes mellitus without complication E11.9 ; Essential hypertension I10 ; Alterations of sensations R20.9 ; Chronic pain syndrome G89.4 ; Tobacco abuse Z72.0 and Tobacco abuse counseling Z71.6 [place] [address] 84225- 9048 Feb, Cough R05 ; Type 2 diabetes mellitus without complication E11.9 ; Tobacco abuse counseling Z71.6 and Chronic pain G89.29 [place] [address] 97962- 1440 Feb, [place] [address] 68724- 1809 07 Feb, 2016 Type 2 diabetes mellitus without complication E11.9 ; Lumbago M54.5 ; Cervicalgia M54.2 ; Degenerative disc disease, lumbar M51.36 and Numbness and tingling of both legs 782.0 [facility] [id number] [place] [address] [id number] 24 Jan, 2016 Dental caries K02.9 and Encounter for dental examination Z01.20 [place] [id number] [place] [address] 65662- 0662 Jan, Type 2 diabetes mellitus without complication E11.9 [place] [id number] [place] [address] 07310- 9806 Jan, Type 2 diabetes mellitus without complication E11.9 ; Numbness and tingling of both legs 782.0 ; Fibromyalgia M79.7 ; Hyperlipidemia E78.5 ; Lumbago M54.5 ; Cervicalgia M54.2 ; Hypertension I10 ; CAD (coronary artery disease) I25.10 ; Tobacco abuse Z72.0 ; Tobacco abuse counseling Z71.6 and GERD (gastroesophageal reflux disease) K21.9 [place] [address] 52099- 1800 Jan, [place] [address] [address]- 3580 Dec, [facility] [id number] [place] [address] [id number] Dec, Dental examination Z01.20 and Dental caries K02.9 [place] [id number] [place] [address] 42710- 2164 Dec, Edema R60.9 ; Type 2 diabetes mellitus without complication E11.9 ; Hypertension I10 and Mouth pain K13.79 [place] [id number] [place] [address] 27435- 6854 Dec, Degenerative disc disease, lumbar M51.36 [place] [id number] [place] [address] 30145- 9334 Dec, [place] [id number] [place] [address] 63106- 3928 Nov, Insomnia, unspecified G47.00 [place] [id number] [place] [address] 11113- 9341 Nov, Type 2 diabetes mellitus without complication E11.9 ; Lumbago M54.5 ; Degenerative disc disease, lumbar M51.36 ; Fibromyalgia M79.7 ; Coronary artery disease I25.10 ; Hyperlipidemia E78.5 ; Controlled substance agreement signed Z79.899 ; Dysuria R30.0 ; Insomnia, unspecified G47.00 ; GERD ( gastroesophageal reflux disease) K21.9 ; Hypertension 401.9 and 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 [place] [address] [place] [address] 82439- 3754 Nov, [place] [id number] [place] [address] 10209- 3361 Oct, Degenerative disc disease, lumbar M51.36 ; Cervicalgia M54.2 ; Insomnia, unspecified G47.00 ; Decreased GFR R94.4 and GERD ( gastroesophageal reflux disease) K21.[address] [place] [id number] [place] [address] 86736- 8058 Oct, Lumbago M54.5 [facility] [address] 54687- 0441 Oct, Low back pain M54.5 [facility] [address] 58075- 2345 Oct, [facility] [address] 16215- 4312 Oct, Disorientation R41.0 [facility] [address] 74637- 2416 Oct, Type 2 diabetes mellitus without complication E11.9 ; Disorientation R41.0 and Chest pain R07.9 [facility] [address] 03402- 3579 Oct, [facility] [address] 60383- 0996 Sep, Low back pain M54.5 [facility] [address] 29263- 2424 Sep, Insomnia, unspecified G47.00 [facility] [id number] [place] [address] 23715- 5465 Aug, Degenerative disc disease, lumbar M51.36 ; Type 2 diabetes mellitus without complication E11.9 and Encounter for immunization Z23 [facility] [id number] [place] [address] 62441- 0156 Aug, [facility] [address] 66297- 8341 Aug, [facility] [address] 75224- 3627 Aug, [facility] [id number] [place] [address] 80842- 0733 Jul, [facility] [id number] [place] [address] 67071- 6517 Jun, [facility] [id number] [place] [address] 46835- 3890 Jun, Chest pain 786.50 and Lumbago 724.2 [facility] [id number] [place] [address] 78863- 5480 Jun, [facility] [id number] [place] [address] 23498- 2453 Jun, [facility] [id number] [place] [address] [id number] Jun, Dental examination V72.2 [facility] [id number] [place] [address] 29559- 0891 Jun, [facility] [id number] [place] [address] 65598- 7865 May, Left shoulder pain 719.41 and Numbness and tingling of both legs 782.0 [facility] [id number] [place] [address] 55311- 6494 May, Cough 786.2 ; Numbness and tingling of both legs 782.0 and Acute rhinitis 460 [facility] [id number] [place] [address] 42864- 9544 May, [facility] [id number] [place] [address] 57814- 1716 Apr, [facility] [id number] [place] [address] 37225- 8012 Apr, Bilateral lower extremity edema 782.3 ; Lumbago 724.2 and Insomnia 780.52 [facility] [id number] [place] [address] 72822- 1332 Apr, [facility] [id number] [place] [address] 27351- 9495 Apr, [facility] [address] [address]- 2623 March, Seborrheic keratosis 702.19 and Skin lesion of face 709.9 [facility] [address] [facility] [id number] 4095 March, [facility] [address] [facility] [id number], [place] [address]- 4754 March, [facility] [address] [facility] [id number] [address]- 2421 March, [facility] [address] [facility] [id number] [place] [address]- 7517 March, [facility] [address] [facility] [id number] [address]- 8829 Feb, [facility] [address] [facility] [id number] [address]- 2640 Feb, [facility] [address] [facility] [id number] [address]- 6456 Jan, [facility] [address] [facility] [id number] [address]- 7784 25 Jan, 2015 [facility] [address] [facility] [id number], [place] [address]- 3036 Jan, [facility] [address] [facility] [id number] [address]- 6397 16 Jan, 2015 [facility] [address] [facility] [id number] [address]- 3355 16 Jan, 2015 [facility] [address] [facility] [id number] [address]- 2094 16 Jan, 2015 [facility] [address] [facility] [id number] [address]- 6231 13 Jan, 2015 [facility] [place] [facility] [address] [facility] [id number] [address]- 8879 Jan, [facility] [address] [facility] [id number] [place] [address]- 1742 13 Jan, 2015 [facility] [place] [facility] [address] [id number] [place] [address]- 7703 13 Jan, 2015 [facility] [place] [facility] [address] [id number] [place] [address]- 1465 10 Jan, 2015 [facility] [place] [facility] [address] [id number] [place] [address]- 4265 27 Dec, 2014 [facility] [place] [facility] [address] [id number] [place] [address]- 1118 Dec, [facility] [place] [facility] [address] [id number] [place] [address]- 3047 Dec, [facility] [place] [facility] [address] [id number] [place] [address]- 2116 Dec, [facility] [place] [facility] [address] [id number] [place] [address]- 2917 Dec, [facility] [place] [facility] [address] [id number] [place] [address]- 6586 Dec, [facility] [place] [facility] [address] [id number] [place] [address]- 0241 15 Nov, 2014 [facility] [place] [facility] [address] [id number] [place] [address]- 5765 15 Nov, 2014 [facility] [place] [facility] [address] [id number] [place] [address]- 4770 14 Nov, 2014 [facility] [place] [facility] [address] [id number] [place] [address] 14 Nov, 2014 [facility] [place] [facility] [address] [id number] [place] [address] 13 Nov, 2014 [facility] [place] [facility] [address] [id number] [place] [address] 13 Nov, 2014 [facility] [place] [facility] [address] [id number] [place] [address] Nov, [facility] [place] [facility] [address] [id number] [place] [address] Nov, [facility] [place] [facility] [address] [id number] [place] [address] Nov, [facility] [place] [facility] [address] [facility] [id number] [place] [address] Nov, [facility] [place] [facility] [address] [id number] [place] [address] Nov, [facility] [place] [facility] [address] [id number] [place] [address] Oct, [facility] [place] [facility] [address] [id number] [place] [address] Oct, [facility] [place] [facility] [address] [id number] [place] [address] Oct, [facility] [place] [facility] [address] [id number] [place] [address] Oct, [facility] [place] [facility] [address] [id number] [place] [address] Oct, [facility] [place] [facility] [address] [id number] [place] [address] Oct, [facility] [facility] [address] [id number] [address] Oct, [facility] [place] [facility] [address] [id number] [address] Oct, [facility] [place] [facility] [address] [id number] [place] [address] Oct, [facility] [place] [facility] [address] [id number] [place] [address] Oct, [facility] [place] [facility] [address] [id number] [place] [address] Sep, [facility] [place] [facility] [address] [id number] [place] [address] Sep, [facility] [place] [facility] [address] [id number] [place] [address] Sep, [facility] [place] [facility] [address] [id number] [place] [address] Sep, [facility] [place] [facility] [address] [id number] [place] [address] Sep, [facility] [place] [facility] [address] [id number] [place] [address] Sep, [facility] [place] [facility] [address] [id number] [place] [address] Sep, [facility] [place] [facility] [address] [id number] [place] [address] Sep, [facility] [place] [facility] [address] [id number] [place] [address] Sep, [facility] [place] [facility] [address] [id number] [place] [address] Sep, [facility] [place] [facility] [address] [id number] [place] [address] Sep, [facility] [place] [facility] [address] [facility] [id number] [place] [address] Sep, [facility] [place] [facility] [address] [id number] [place] [address] Sep, [facility] [place] [facility] [address] [id number] [place] [address] Aug, [facility] [place] [facility] [address] [id number] [place] [address] Aug, [facility] [place] [facility] [address] [id number] [place] [address] Aug, [facility] [place] [facility] [address] [id number] [place] [address] Aug, [facility] [place] [facility] [address] [id number] [place] [address] Aug, [facility] [place] [facility] [address] [id number] [place] [address] Aug, [facility] [place] [facility] [address] [id number] [place] [address] Aug, [facility] [place] [facility] [address] [id number] [place] [address] Aug, [facility] [place] [facility] [address] [id number] [place] [address] Aug, [facility] [place] [facility] [address] [id number] [place] [address] Aug, [facility] [place] [facility] [address] [id number] [place] [address] Aug, [facility] [place] [facility] [address] [id number] [place] [address] Aug, [facility] [place] [facility] [address] [id number] [place] [address] Aug, [facility] [place] [facility] [address] [id number] [place] [address] Aug, [facility] [place] [facility] [address] [id number] [place] [address] Aug, [facility] [place] [facility] [address] [id number], [place] [address] Aug, [facility] [place] [facility] [address] [id number] [place] [address] Aug, [facility] [place] [facility] [address] [id number] [place] [address] Aug, [facility] [place] [facility] [address] [id number] [place] [address] Jul, [facility] [place] [facility] [address] [id number] [address] 30 Jul, 2014 [facility] [address] [facility] [id number], [place] [address] Jul, [facility] [address] [facility] [id number][place] [address] Jul, [facility] [address] [facility] [id number], [place] [address] Jul, [facility] [address] [facility] [id number], [place] [address] Jul, [facility] [address] [facility] [id number], [place] [address] Jul, [facility] [address] [facility] [id number][place] [address] Jul, [facility] [id number], [place] [address] Jul, [facility] [id number], [place] [address] Jul, [facility] [id number], [place] [address] Jul, [facility] [id number], [place] [address] Jul, [facility] [address] [id number], [place] [address] Jul, [facility] [address] [id number], [place] [address] Jul, IMMUNIZATIONS No Known Immunizations SOCIAL HISTORY Never Assessed REASON FOR VISIT FY PLAN OF CARE VITAL SIGNS MEDICATIONS Unknown [...] r/t DDD Medical History fibromyalgia Medical History PA-stent to LAD Surgical History cholecystectomy 1983 Surgical [...] Influenza illness, hyperglycemia 2017 Hospitalization History [place]- High BS (Pt left AMA) 01/05/2018 Hospitalization History [facility]- DKA and UTI. Discharged 01/14/2018 Hospitalization History [facility] [place]- Nausea and Vomiting, cannot urinate 01/18/2018 Hospitalization History [facility] 10/06/48
--- OUTSIDE RECORDS SUMMARY | 2018-11-23 14:36 | XMS REPORT ---
Author Author LADARIUS TRINIDAD [facility] Address [address] [place] [address] Care Team Providers Care Jewel Sawyer Name Role Phone LADARIUS TRINIDAD Unavailable PROBLEMS Type Condition ICD9-CM Code CIK98-SY Code Onset Dates Condition Status SNOMED Code Problem Seasonal allergic rhinitis due to pollen J30.1 Active 85821126 Problem Arthritis M19.90 Active 1045569 Problem Primary insomnia F51.01 Active 6857370 Problem Dysphagia, unspecified type R13.10 Active 59271511 Problem Hyperlipidemia E78.5 Active 25037645 Problem Type 2 diabetes mellitus with hyperglycemia E11.65 Active 123434019492314 Problem Degenerative disc disease, lumbar M51.36 Active 32188360 Problem Alterations of sensations R20.9 Active 131348949 Problem Body mass index (BMI) of 33.0-33.9 in adult Z68.33 Active 634851344 Problem Other obesity due to excess calories E66.09 Active 325928359 Problem Cervicalgia M54.2 Active 05852792 Problem Diabetic mononeuropathy associated with type 2 diabetes mellitus E11.41 Active 011993753 Problem residential current use of insulin Z79.4 Active 369823880 Problem Essential hypertension I10 Active 60210031 Problem Fibromyalgia M79.7 Active 29531068 Problem GERD (gastroesophageal reflux disease) K21.9 Active 453770286 Problem Tobacco abuse counseling Z71.6 Active 406710724 Problem Chronic pain syndrome G89.4 Active 310714742 Problem CAD (coronary artery disease) I25.10 Active 16286285 Problem DM neuro manif type II E11.49 Active 98835666 Problem Vitamin D deficiency E55.9 Active 12923352 Problem Tobacco abuse Z72.0 Active 71764591 Problem Dental caries K02.9 Active 62869925 ALLERGIES No Information ENCOUNTERS Encounter Location Date Diagnosis [facility] [address] [facility] [id number] [address] Sep, [facility] [id number] [place] [address] 77623- 3348 Sep, Type 2 diabetes mellitus with hyperglycemia E11.65 ; Other microscopic hematuria R31.29 ; Nausea and vomiting, intractability of vomiting not specified, unspecified vomiting type R11.2 and Dizziness R42 [facility] [address] 8[address]13- 3076 Sep, [facility] [address] 06096- 4567 Sep, [facility] [address] 79661- 2360 Sep, GERD (gastroesophageal reflux disease) K21.9 [facility] [address] 00307- 2048 Aug, [facility] [address] 00118- 3139 Aug, DM neuro manif type II E11.49 [facility] [address] 94683- 0718 Aug, [facility] [address] 35660- 7511 Jul, [facility] [id number] [place] [address] 11037- 6482 Jul, Elevated serum creatinine R79.89 [facility] [address] 59647- 9528 17 Jul, 2018 [facility] [address] 01598- 9690 14 Jul, 2018 [facility] [address] 97633- 2391 06 Jul, 2018 [facility] [id number] [place] [address] 52527- 4528 Jun, DM neuro manif type II E11.49 ; Hyperlipidemia E78.5 ; GERD (gastroesophageal reflux disease) K21.9 ; Fibromyalgia M79.7 ; residential current use of insulin Z79.4 ; Chronic pain syndrome G89.4 ; Primary insomnia F51.01 ; Seasonal allergic rhinitis due to pollen J30.1 ; Elevated serum creatinine R79.89 and Dysphagia, unspecified type R13.10 [place] [address] 99293- 0626 Apr, Type 2 diabetes mellitus with hyperglycemia E11.65 [place] [address] 38693- 1278 Apr, Hyperlipidemia E78.5 ; Chronic pain syndrome G89.4 ; Cervicalgia M54.2 ; DM neuro manif type II E11.49 ; 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 ; Nausea alone R11.0 ; Essential hypertension I10 ; GERD ( gastroesophageal reflux disease) K21.9 ; CAD (coronary artery disease) I25.10 and Diabetic mononeuropathy associated with type 2 diabetes mellitus E11.41 [place] [address] 69434- 4405 Apr, [address] 18783- 7166 March, Essential hypertension I10 ; DM neuro manif type II E11.49 and GERD (gastroesophageal reflux disease) K21.9 [facility] [id number] [place] [address] 50562- 8057 March, DM neuro manif type II E11.49 and GERD (gastroesophageal reflux disease) K21.9 [facility] [id number] [place] [address] 28587- 9614 March, [facility] [address] 73176- 7394 Feb, Tobacco abuse Z72.0 [facility] [id number] [place] [address] 08965- 4020 Feb, Tobacco abuse Z72.0 [place] [id number] [place] [address] 9014 Feb, Hypokalemia E87.6 [facility] [address] 76519- 0067 05 Feb, 2018 Hyperlipidemia E78.5 ; Essential hypertension I10 ; DM neuro manif type II E11.49 ; Fibromyalgia M79.7 ; Acute non-recurrent frontal sinusitis J01.10 ; Other obesity due to excess calories E66.09 and Body mass index (BMI) of 33.0-33.9 in adult Z68.33 [place] [address] 63687- 1431 05 Jan, 2018 Dysuria R30.0 [place] [address] 61725- 2773 Jan, Dysuria R30.0 [place] [address] 07218- 5117 02 Jan, 2018 Acute cystitis with hematuria N30.01 ; DM neuro manif type II E11.49 ; residential current use of insulin Z79.4 ; Essential hypertension I10 and Hospital discharge follow-up Z09 [place] [address] 65163- 5812 27 Dec, 2017 Chest pain, unspecified type R07.9 ; Dehydration E86.0 and Anuria R34 [place] [id number] [place] [address] 80051- 4007 Dec, [place] [address] 67480- 0624 Dec, Hyperglycemia R73.9 ; Dehydration E86.0 and Acute cystitis with hematuria N30.01 [facility] [address] [place] [address] 58265 -7759 Dec, [facility] [id number] [place] [address] 77346 -2418 Dec, [facility] [id number] [place] [address] 20921 -9954 Dec, [facility] [address] 53577 -0022 16 Dec, 2017 Dysuria R30.0 ; Acute cystitis with hematuria N30.01 and Weakness R53.1 [place] [address] 92258- 8122 Dec, [place] [address] 22963- 5390 Nov, [address] 93471- 6083 Nov, [place] [address] 25397- 8069 Nov, Essential hypertension I10 ; DM neuro manif type II E11.49 ; residential current use of insulin Z79.4 ; Tobacco abuse Z72.0 ; Hyperlipidemia E78.5 ; Non-adherence to medical treatment Z91.19 ; GERD (gastroesophageal reflux disease) K21.9 ; Degenerative disc disease, lumbar M51.36 ; Fibromyalgia M79.7 ; Chronic pain syndrome G89.4 ; Dental caries K02.9 and Seasonal allergic rhinitis due to pollen J30.1 [place] [id number] [place] [address] 15044- 1856 Nov, Alterations of sensations R20.9 [place] [id number] [place] [address] 69830- 6885 Sep, DM neuro manif type II E11.49 ; Hyperlipidemia E78.5 ; Degenerative disc disease, lumbar M51.36 and Chronic pain syndrome G89.[address] 00171- 8903 Sep, Arthritis M19.90 [place] [id number] [place] [address] 60724- 9426 Sep, Type 2 diabetes mellitus without complication E11.9 ; GERD ( gastroesophageal reflux disease) K21.9 ; Arthritis M19.90 and Chronic pain syndrome G89.4 [facility] [id number] [place] [address] 42178- 9438 Sep, [facility] [id number] [place] [address] 00062- 6681 Aug, [facility] [id number] [place] [address] 01464- 3796 Aug, Type 2 diabetes mellitus without complication E11.9 [facility] [id number] [place] [address] 06188- 8647 Aug, [place] [address] 59005- 5684 Aug, [facility] [id number] [place] [address] 16525- 7375 Aug, [facility] [id number] [place] [address] 40748- 3733 Jul, [facility] [id number] [place] [address] 49812 -8789 Jul, Acute non-recurrent frontal sinusitis J01.10 [place] [id number] [place] [address] 93821- 7081 20 Jul, 2017 CAD (coronary artery disease) I25.10 and GERD ( gastroesophageal reflux disease) K21.9 [place] [id number] [place] [address] 37497- 3214 14 Jul, 2017 Localized swelling, mass and lump, neck R22.1 [facility] [id number] [place] [address] 74593- 1409 06 Jul, [address] [place] [id number] [place] [address] 62894- 7644 Jun, Type 2 diabetes mellitus without complication E11.9 ; Primary insomnia F51.01 ; Alterations of sensations R20.9 ; Hyperlipidemia E78.5 ; GERD (gastroesophageal reflux disease) K21.9 ; Essential 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 I10 ; 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 ; Tobacco abuse Z72.0 ; Tobacco abuse counseling Z71.6 and CAD (coronary artery disease) I25.10 [place] [id number] [place] [address] 33376- 2487 May, [place] [id number] [place] [address] 61387- 7367 May, Type 2 diabetes mellitus without complication E11.9 [place] [id number] [place] [address] 19682- 0032 May, [place] [id number] [place] [address] 99048- 2368 March, [place] [id number] [place] [address] 69630- 3042 Feb, [facility] [id number] [place] [address] 35867 -7689 Jan, Acute suppurative otitis media of left ear with spontaneous rupture of tympanic membrane, recurrence not specified H66.012 [facility] [id number] [place] [address] 47514- 8208 Dec, Type 2 diabetes mellitus without complication E11.9 ; Lumbago M54.5 ; Cervicalgia M54.2 ; Hyperlipidemia E78.5 ; GERD ( gastroesophageal reflux disease) K21.9 ; Chronic pain syndrome G89.4 ; Dysuria R30.0 and Essential hypertension I10 [place] [id number] [place] [address] 38220- 8034 Oct, [facility] [id number] [place] [address] 01584- 1576 Sep, Diabetic mononeuropathy associated with type 2 diabetes mellitus E11.41 and Coughing R05 [place] [id number] [place] [address] 88616- 8930 Sep, Diabetic mononeuropathy associated with type 2 diabetes mellitus E11.41 and Coughing R05 [place] [id number] [place] [address] 23173- 5585 18 Sep, 2016 Onychomycosis B35.1 ; Neuritis M79.2 and Type 2 diabetes mellitus without complication E11.9 [place] [id number] [place] [address] 08401- 4101 14 Sep, 2016 [place] [id number] [place] [address] 72447- 8929 Sep, Cough R05 ; Seasonal allergic rhinitis due to pollen J30.1 and Acute upper respiratory infection, unspecified J06.9 [place] [id number] [place] [address] 86135- 2024 Sep, [place] [id number] [place] [address] 15357- 2871 Aug, [place] [id number] [place] [address] 98198- 7218 Jul, Type 2 diabetes mellitus without complication E11.9 ; Chronic pain G89.29 ; Essential hypertension I10 and Acute non-recurrent maxillary sinusitis J01.00 [place] [id number] [place] [address] 24153- 7842 Jul, Chronic pain syndrome G89.4 ; Lumbago M54.5 and Cervicalgia M54.2 [place] [id number] [place] [address] 24212- 2526 Jul, [place] [id number] [place] [address] 25781- 6669 Jul, [place] [id number] [place] [address] 14726- 5687 Jun, Onychomycosis B35.1 ; Onychocryptosis L60.0 and DM neuro manif type II E11.49 [place] [id number] [place] [address] 78800- 5514 Jun, Type 2 diabetes mellitus without complication E11.9 ; Pain in unspecified hip M25.559 ; Other chronic pain G89.29 ; Lumbago M54.5 ; Chronic pain G89.29 ; Insomnia, unspecified G47.00 ; GERD (gastroesophageal reflux disease) K21.9 and Dental caries K02.9 [place] [id number] [place] [address] 92292- 4305 Jun, Type 2 diabetes mellitus without complication E11.9 ; Lumbago M54.5 ; Chronic pain G89.29 ; Insomnia, unspecified G47.00 ; GERD ( gastroesophageal reflux disease) K21.9 ; Dental caries K02.9 ; Pain in unspecified hip M25.559 and Other chronic pain G89.29 [place] [address] 30019- 6483 May, [place] [address] 30345- 4086 May, Type 2 diabetes mellitus without complication E11.9 ; Essential hypertension I10 ; Chronic pain syndrome G89.4 ; Other seasonal allergic rhinitis J30.2 and Insomnia, unspecified G47.00 [place] [address] 64088- 5881 Apr, [address] 85871- 6992 Apr, Hypertension I10 and Chronic pain G89.29 [place] [id number] [place] [address] 64562- 3809 March, Onychomycosis B35.1 ; Onychocryptosis L60.0 and Type 2 diabetes mellitus without complication E11.9 [place] [id number] [place] [address] 37455- 2259 March, Type 2 diabetes mellitus without complication E11.9 ; Essential hypertension I10 ; Alterations of sensations R20.9 ; Chronic pain syndrome G89.4 ; Tobacco abuse Z72.0 and Tobacco abuse counseling Z71.[address] 92859- 4155 21 Apr, 2016 Cough R05 ; Type 2 diabetes mellitus without complication E11.9 ; Tobacco abuse counseling Z71.6 and Chronic pain G89.29 [place] [address] 87008- 6139 Feb, [place] [address] 47964- 4439 Feb, Type 2 diabetes mellitus without complication E11.9 ; Lumbago M54.5 ; Cervicalgia M54.2 ; Degenerative disc disease, lumbar M51.36 and Numbness and tingling of both legs 782.0 [facility] [id number] [place] [address] [id number] Jan, Dental caries K02.9 and Encounter for dental examination Z01.[address] 77880- 3965 Jan, Type 2 diabetes mellitus without complication E11.[address] 05386- 3409 Jan, Type 2 diabetes mellitus without complication E11.9 ; Numbness and tingling of both legs 782.0 ; Fibromyalgia M79.7 ; Hyperlipidemia E78.5 ; Lumbago M54.5 ; Cervicalgia M54.2 ; Hypertension I10 ; CAD (coronary artery disease) I25.10 ; Tobacco abuse Z72.0 ; Tobacco abuse counseling Z71.6 and GERD (gastroesophageal reflux disease) K21.9 [place] [id number] [place] [address] 00117- 0205 Jan, [place] [id number] [place] [address] 85318- 8859 Dec, [facility] [id number] [place] [address] [id number] Dec, Dental examination Z01.20 and Dental caries K02.9 [place] [id number] [place] [address] 89924- 8350 Dec, Edema R60.9 ; Type 2 diabetes mellitus without complication E11.9 ; Hypertension I10 and Mouth pain K13.79 [place] [id number] [place] [address] 36192- 3195 Dec, Degenerative disc disease, lumbar M51.36 [place] [address] 39700- 6384 Dec, [place] [address] 31060- 5245 Nov, Insomnia, unspecified G47.00 [place] [address] 22923- 4084 Nov, Type 2 diabetes mellitus without complication E11.9 ; Lumbago M54.5 ; Degenerative disc disease, lumbar M51.36 ; Fibromyalgia M79.7 ; Coronary artery disease I25.10 ; Hyperlipidemia E78.5 ; Controlled substance agreement signed Z79.899 ; Dysuria R30.0 ; Insomnia, unspecified G47.00 ; GERD ( gastroesophageal reflux disease) K21.9 ; Hypertension 401.9 and residential current use of insulin Z79.4 [place] [address] 53298- 2280 Nov, [place] [address] 80238- 3837 Oct, Degenerative disc disease, lumbar M51.36 ; Cervicalgia M54.2 ; Insomnia, unspecified G47.00 ; Decreased GFR R94.4 and GERD ( gastroesophageal reflux disease) K21.9 [place] [id number] [place] [address] 85545- 3631 Oct, Lumbago M54.5 [place] [address] 19167- 2992 Oct, Low back pain M54.5 [place] [address] 36292- 4698 Oct, [place] [address] 12580- 6818 Oct, Disorientation R41.0 [facility] [id number] [place] [address] 60968- 7401 Oct, Type 2 diabetes mellitus without complication E11.9 ; Disorientation R41.0 and Chest pain R07.9 [facility] [id number] [place] [address] 07353- 5135 Oct, [facility] [address] 78957- 1307 Sep, Low back pain M54.5 [facility] [address] 95574- 9734 Sep, Insomnia, unspecified G47.00 [facility] [address] 80711- 8292 Aug, Degenerative disc disease, lumbar M51.36 ; Type 2 diabetes mellitus without complication E11.9 and Encounter for immunization Z23 [facility] [address] 69321- 4961 Aug, [facility] [address] 62457- 6296 Aug, [facility] [id number] [place] [address] 21019- 1196 Aug, [facility] [id number] [place] [address] 13100- 2484 Jul, [facility] [id number] [place] [address] 77136- 6126 Jun, [facility] [address] 20239- 5965 Jun, Chest pain 786.50 and Lumbago 724.2 [facility] [id number] [place] [address] 34837- 0465 Jun, [facility] [address] 88030- 7846 Jun, [facility] [id number] [id number] Jun, Dental examination V72.2 [facility] [id number] [place] [address] 35825- 8220 Jun, [facility] [id number] [place] [address] 49028- 4414 May, Left shoulder pain 719.41 and Numbness and tingling of both legs 782.0 [facility] [id number] [place] [address] 04572- 3448 May, Cough 786.2 ; Numbness and tingling of both legs 782.0 and Acute rhinitis 460 [facility] [id number] [place] [address] 99344- 2530 May, [facility] [id number] [place] [address] 84295- 3362 Apr, [facility] [id number] [place] [address] 10674- 3036 Apr, Bilateral lower extremity edema 782.3 ; Lumbago 724.2 and Insomnia 780.52 [facility] [address] [place] [address] 20634- 4023 Apr, [facility] [id number] [place] [address] 06461- 1391 Apr, [facility] [id number] [place] [address] 52822- 9027 March, Seborrheic keratosis 702.19 and Skin lesion of face 709.9 [facility] [id number] [place] [address] 13028- 4748 March, [facility] [id number] [place] [address] 79390- 5891 March, [facility] [id number] [place] [address] 10717- 2386 March, [facility] [place] [facility] [address] [id number] [place] [address]- 3560 March, [facility] [place] [facility] [address] [id number] [place] [address]- 5190 Feb, [facility] [place] [facility] [address] [id number] [place] [address]- 1016 Feb, [facility] [place] [facility] [address] [id number] [place] [address]- 7319 Jan, [facility] [place] [facility] [address] [id number] [place] [address]- 2169 Jan, [facility] [place] [facility] [address] [id number] [place] [address]- 4934 Jan, [facility] [place] [facility] [address] [id number] [place] [address]- 1086 Jan, [facility] [place] [facility] [address] [id number] [place] [address]- 6872 16 Jan, 2015 [facility] [place] [facility] [address] [id number] [place] [address]- 0652 Jan, [facility] [place] [facility] [address] [id number] [place] [address]- 9002 Jan, [facility] [place] [facility] [address] [id number] [place] [address]- 2286 Jan, [facility] [place] [facility] [address] [id number] [place] [address]- 6583 Jan, [facility] [place] [facility] [address] [id number] [place] [address]- 8777 Jan, [facility] [place] [facility] [address] [id number] [place] [address]- 5317 Jan, [facility] [place] [facility] [address] [id number] [place] [address]- 8441 27 Dec, 2014 [facility] [place] [facility] [address] [id number] [place] [address]- 6446 Dec, [facility] [place] [facility] [address] [id number] [place] [address]- 9011 Dec, [facility] [place] [facility] [address] [id number] [place] [address]- 4958 Dec, [facility] [place] [facility] [address] [id number] [place] [address]- 9045 Dec, [facility] [place] [facility] [address] [id number] [place] [address]- 1222 Dec, [facility] [place] [facility] [address] [id number] [place] [address]- 1797 Nov, [facility] [place] [facility] [address] [id number] [place] [address]- 5689 Nov, [facility] [place] [facility] [address] [id number] [place] [address]- 1698 Nov, [facility] [place] [facility] [address] [id number] [place] [address]- 5934 Nov, [facility] [place] [facility] [address] [id number] [place] [address]- 8378 Nov, [facility] [place] [facility] [address] [id number] [place] [address]- 4960 Nov, [facility] [place] [facility] [address] [id number] [place] [address]- 1689 Nov, [facility] [place] [facility] [address] [id number] [place] [address]- 8779 Nov, [facility] [place] [facility] [address] [id number] [place] [address] Nov, [facility] [place] [facility] [address] [id number] [place] Nov, [facility] [place] [facility] [address] [id number] [place] [address] Nov, [facility] [place] [facility] [address] [id number] [place] [address] Oct, [facility] [place] [facility] [address] [id number] [place] [address] Oct, [facility] [place] [facility] [address] [facility] [id number] [place] [id number] Oct, [facility] [place] [facility] [address] [id number] [place] [address] Oct, [facility] [place] [facility] [address] [id number] [place] [address] Oct, [facility] [place] [facility] [address] [id number] [place] [address] Oct, [facility] [place] [facility] [address] [id number] [place] [address] Oct, [facility] [place] [facility] [address] [id number] [place] [address] Oct, [facility] [place] [facility] [address] [id number] [place] [address] Oct, [facility] [place] [facility] [address] [id number] [place] [address] Oct, [facility] [place] [facility] [address] [id number], [place] [address] Sep, [facility] [place] [facility] [address] [id number], [place] [address] Sep, [facility] [place] [facility] [address] [id number] [place] [address] Sep, [facility] [place] [facility] [address] [id number] [place] [address] Sep, [facility] [place] [facility] [address] [id number] [place] [address] Sep, [facility] [place] [facility] [address] [id number] [place] [address] 18 Sep, 2014 [facility] [place] [facility] [address] [id number] [place] [address] Sep, [facility] [place] [facility] [address] [id number] [place] [address] Sep, [facility] [place] [facility] [address] [address] [id number] [place] [address] Sep, [facility] [place] [facility] [address] [id number] [place] [address] 17 Sep, 2014 [facility] [place] [facility] [address] [id number] [place] [address] Sep, [facility] [place] [facility] [address] [id number] [place] [address] Sep, [facility] [place] [facility] [address] [id number] [place] [address] Sep, [facility] [place] [facility] [address] [id number] [place] [address] 30 Aug, 2014 [facility] [place] [facility] [address] [id number] [place] [address] 30 Aug, 2014 [facility] [place] [facility] [address] [facility] [id number] [place] [address] 30 Aug, 2014 [facility] [place] [facility] [address] [id number] [place] [address] 30 Aug, 2014 [facility] [place] [facility] [address] [id number] [place] [address] 30 Aug, 2014 [facility] [place] [facility] [address] [id number] [place] [address] 30 Aug, 2014 [facility] [place] [facility] [address] [id number] [place] [address] 28 Aug, 2014 [facility] [place] [facility] [address] [id number] [place] [address] Aug, [facility] [place] [facility] [address] [id number] [place] [address] Aug, [facility] [place] [facility] [address] [id number] [place] [address] Aug, [facility] [place] [facility] [address] [id number] [place] [address] Aug, [facility] [place] [facility] [address] [id number] [place] [address] Aug, [facility] [place] [facility] [address] [id number] [place] [address] Aug, [facility] [place] [facility] [address] [id number] [place] [address] Aug, [facility] [place] [facility] [address] [id number] [place] [address] Aug, [facility] [place] [facility] [address] [id number] [place] [address] Aug, [facility] [place] [facility] [address] [id number] [place] [address] Aug, [facility] [place] [facility] [address] [id number] [place] [address] Aug, [facility] [place] [facility] [address] [id number] [place] [address] 30 Jul, 2013 [facility] [place] [facility] [address] [id number], [place] [address] 30 Jul, 2013 [facility] [place] [facility] [address] [id number] [place] [address] 24 Jul, 2014 [facility] [place] [facility] [address] [id number] [place] [address] 24 Jul, 2013 [facility] [place] [facility] [address] [id number] [place] [address] 23 Jul, 2013 [facility] [place] [facility] [address] [id number], [place] [address] Jul, [facility] [address] [id number] [address] Jul, [facility] [address], [place] [address] Jul, [facility] [address] [id number], [place] [address] Jul, [facility] [address] [address] Jul, [facility] [address] [id number], [place] [address] Jul, [facility] [address], [place] [address] Jul, [facility] [address], [place] [address] Jul, [facility] [id number], [place] [address] Jul, IMMUNIZATIONS No Known Immunizations SOCIAL HISTORY [...] r/t DDD Medical History fibromyalgia Medical History HI-stent to LAD Surgical History cholecystectomy 1983 Surgical [...] Milagros- Influenza illness, hyperglycemia 2017 Hospitalization History [facility]- High BS (Pt left AMA) 01/05/2018 Hospitalization History [facility]- DKA and UTI. Discharged 01/14/2018 Hospitalization History [facility]- Nausea and Vomiting, cannot urinate 01/18/2018
[2018-11-23] MEDS ORDERED: 1/2 NS W/KCL 20 MEQ/L 1,000 ML IV SCH (15:00)
[2018-11-23] MEDS ORDERED: D5 1/2 NS IV 1,000 ML IV SCH (15:00)
[2018-11-23] MEDS ORDERED: DEXTROSE 10% IV SOLUTION 1,000 ML IV SCH (15:00)
[2018-11-23] MEDS ORDERED: D5 1/2 NS W/KCL 20 MEQ/L 1,000 ML IV SCH (15:00)
[2018-11-23] MEDS ORDERED: 1/2 NS IV SOLUTION 1,000 ML IV SCH (15:00)
[2018-11-23] MEDS ORDERED: REGULAR inSUlin DRIP 250 UNITS/NS 250 ML IV SCH ×2 (15:00)
[2018-11-23] MEDS ORDERED: NS IV 1000 ML X 1 WIDE OPEN IV ONE (15:00)
--- NOTE | 2018-11-23 15:00 | NUR ---
PT ADMITTED TO ICU4 VIA WC W/ STAFF. PT ASSISTED TO BED AND PLACED ON MONITORS. PT INTRODUCED TO SURROUNDINGS. NO QUESTIONS/CONCERNS VOICED AT THIS TIME.
[2018-11-23] MEDS ORDERED: CATHETER FLUSH 10 ML SYR IV PRN (15:15)
[2018-11-23] MEDS ORDERED: diphenhydrAMINE 50 MG/ML INJ (BENADRYL) IV PRN (15:15)
[2018-11-23] MEDS ORDERED: MIRT15TA6 PO (15:21)
[2018-11-23] MEDS ORDERED: INSU100I23 SQ (15:27)
[2018-11-23] MEDS ORDERED: INSU100I29 SQ (15:27)
[2018-11-23] MEDS ORDERED: AMLO10TA6 PO (15:27)
[2018-11-23] MEDS ORDERED: MELA5CAP PO (15:28)
[2018-11-23] MEDS ORDERED: POTASSIUM CL 10MEQ/50ML IVPB 50 ML IV SCH (15:30)
[2018-11-23] MEDS ORDERED: inSUlin REGULAR TPN/DRIP ONLY 250 UNITS in NORMAL SALINE 250 ML IV SCH (15:30)
[2018-11-23] MEDS: 1/2 NS IV SOLUTION 1,000 ML IV SCH ×2 (15:32→19:30)
--- NOTE | 2018-11-23 15:42 | NUR ---
SPOKE WITH THE PATIENT ABOUT HER MEDICATIONS. I CALLED [facility] FOR A LIST OF RECENTLY FILLED MEDS AND WENT OVER THEM WITH THE PATIENT. [facility] FILLED: 11-03-18 OXYCODONE 10MG DAILY #30 18 PERCOCET 10-325 1 Q4H PRN #150 SEPT 18 AMLODIPINE 10MG #30 [facility] FILLED: 11-10-18 TRADJENTA 5MG DAILY 11-10-18 MIRTAZAPINE 15MG HS 10-25-18 OMEPRAZOLE 20MG DAILY 10-25-18 GABAPENTIN 800MG 2 HS (STATES SHE ALSO TAKES 1 IN THE DAY NEEDED) 10-14-18 POTASSIUM 20MEQ DAILY #7 (FINISHED) 10-14-18 FUROSEMIDE 20MG DAILY #7 (FINISHED) 18 LIPITOR 40MG HS #30 AUG. LEVEMIR FLEX 40 UNITS DAILY (STATES SHE USES 30 UNITS IN AM) [facility] KWIKPEN 1 UNIT FOR EVERY 4GM CARBS TID WITH MEALS (HER BS METER TELLS HER HOW MANY UNITS DEPENDING ON HER BLOOD SUGAR READING) 04-14-18 AMLODIPINE 5MG DAILY (STATES SHE IS ON 10MG DAILY NOW) SHE TAKES ASPIRIN 81MG DAILY AND MELATONIN NEEDED OTC.
[2018-11-23 15:44] LABS: CALCIUM 8.9 MG/DL (8.5-10.1); CREATININE SERUM 0.97 MG/DL (0.60-1.30); POTASSIUM 3.4 MMOL/L (3.6-5.0)
[2018-11-23] MEDS ORDERED: RT-ALBUTEROL/IPRATROPIUM 3 ML (DUONEB) VIAL INH PRN (15:45)
[2018-11-23] MEDS: POTASSIUM CL 10MEQ/50ML IVPB 50 ML IV SCH ×4 (15:52→22:13)
[2018-11-23] MEDS: D5 1/2 NS 1000 ML IV SOLUTION 1,000 ML IV SCH ×2 (16:46→21:02)
[2018-11-23] MEDS: PROMETHAZINE INJ 25 MG/ML (PHENERGAN) AMP IV PRN ×2 (17:00→23:02)
[2018-11-23] MEDS ORDERED: NON-FORMULARY MEDICATION 1 EA EA (Melatonin 5 MG) PO PRN (17:30)
[2018-11-23] MEDS ORDERED: NON-FORMULARY MEDICATION 1 EA EA (Gabapentin 800 MG) PO PRN (17:30)
[2018-11-23 17:54] LABS: BUN/CREATININE RATIO 20; CALCIUM 8.9 MG/DL (8.5-10.1); CARBON DIOXIDE 21 MMOL/L (21-32); CHLORIDE 106 MMOL/L (98-107); CREATININE SERUM 0.85 MG/DL (0.60-1.30); GFR ESTIMATED > 60; GLUCOSE 173 MG/DL (70-105); POTASSIUM 3.6 MMOL/L (3.6-5.0); SODIUM 139 MMOL/L (135-145)
[2018-11-23] MEDS ORDERED: GABAPENTIN 400 MG (NEURONTIN) CAP PO PRN (18:00)
[2018-11-23] MEDS: oxyCODONE/APAP 10/325MG (PERCOCET 10) TABLET PO PRN ×2 (18:07→22:03)
--- NOTE | 2018-11-23 18:37 | History & Physical-Hospitalist ---
History of Present Illness HPI/Chief Complaint CC: Nausea and vomiting with severe hyperglycemia HPI: This is a 58-year-old white female [facility] with a prior history of multiple hospital stays due to DKA and severe hyperglycemia and nausea and vomiting who presents to the ER with nausea and vomiting. She was found to have very high sugars and unable to eat or drink and maintain insulin regimen so she was placed in the hospital with non-DKA insulin drip. She is on chronic pain medication and already asking for pain medication through her IV since she is unable to tolerate oral route. I checked meds and labs and restarted most of her other medicine. Source: patient Exam Limitations: no limitations Date Seen 11/23/18 Time Seen by a Provider: 16:30 Attending Physician Jazmine Berry DO [facility] Referring Physician Date of Admission Nov 23, 2018 at 14:28 Home Medications & Allergies Home Medications Reviewed patient Home Medication Reconciliation performed by pharmacy medication reconciliations entry level lab technician and/or nursing. Patients Allergies have been reviewed. Allergies Allergies Coded Allergies ketorolac (Verified Allergy, Severe, ANAPHYLAXIS, PT TAKES ASA AT HOME, 11/23/18 ) ondansetron (Verified Allergy, Intermediate, RASH, 11/23/18) RASH/ HIVES exenatide (Verified Allergy, Unknown, NAUSEA, 11/23/18) NON STOP VOMITING latex (Verified Allergy, Unknown, RASH, 11/23/18) metoclopramide (Verified Allergy, Unknown, RESTLESS LEGS, 11/23/18) Past Ckyshiy-Jbauda-Mlfylg Hx Past Med/Social Hx: Reviewed Nursing Past Med/Soc Hx, Reviewed and Corrections made Patient Social History Marrital Status: single Employed/Student: unemployed Alcohol Use: Denies Use Number of Drinks Today: Alcohol Beverage of Choice: Wine Recreational Drug Use: No Smoking Status: Current Everyday Smoker Former Smoker, Quit: Nov 10, 2017 Type Used: Cigarettes 2nd Hand Smoke Exposure: No Physical Abuse Screen: No Sexual Abuse: No Recent Foreign Travel: No Contact w/other who traveled: No Recent Hopitalizations: Yes Recent Infectious Disease Expo: No Immunizations Up To Date Tetanus Booster (TDap): Unknown Pediatric: No Date of Pneumonia Vaccine: Dec 12, 2013 Date of Influenza Vaccine: Sep 22, 2018 Seasonal Allergies Seasonal Allergies: Yes Past Medical History Surgeries: Cardiac, Coronary Stent, Ear Surgery, Gallbladder, Orthopedic, Renal Respiratory: Asthma Currently Using CPAP: Yes (AT HOME) Currently Using BIPAP: No Cardiac: Chronic Edema/Swelling, Coronary Artery Disease, Deep Vein Thrombosis , High Cholesterol, Hypertension Neurological: Headaches /Migraines, Neuropathy 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: No Sexually Transmitted Disease: No HIV/AIDS: No 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 Disorders: Denies Menopausal Genitourinary: Bladder Infection, Kidney Stones, Renal Failure Gastrointestinal: Gastroesophageal Reflux, Diverticulosis, Hiatal Hernia, Irritable Bowel Musculoskeletal: Degenerate Disk Disease, Fibromyalgia, Chronic Back Pain Endocrine: Diabetes, Insulin dep Are Your Blood Sugars Over 250: Yes HEENT: Chronic Ear Infection Loss of Vision: Denies Hearing Impairment: Hard of Hearing Psychosocial: Anxiety Skin/Integumentary: Psoriasis History of Blood Disorders: No Adverse Reaction to Blood Green: No Family History Reviewed Nursing Family Hx Cancer of mouth 19 FATHER ( of esophogeal cancer.) Cardiovascular disease 19 MOTHER G8 BROTHER Completed stroke 19 FATHER G8 BROTHER Diabetes mellitus G8 BROTHER FH: lung cancer 19 MOTHER Hypertension 19 FATHER Kidney disease 19 FATHER Myocardial infarction 19 MOTHER G8 BROTHER Respiratory disorder No Family History of: AIDS CAD Over 55 Years Old, CVA, Diabetes, Renal Disease Review of Systems Constitutional: see HPI, weakness EENTM: no symptoms reported Respiratory: no symptoms reported Cardiovascular: no symptoms reported Gastrointestinal: heartburn, loss of appetite, nausea, vomiting Genitourinary: decreased output Musculoskeletal: no symptoms reported Skin: no symptoms reported Psychiatric/Neurological: No Symptoms Reported All Other Systems Reviewed Negative Unless Noted: Yes Physical Exam Physical Exam Vital Signs Vital Signs - First Documented 11/23/18 11/23/18 11/23/18 10:21 15:00 15:32 Temp 97.2 Pulse 88 Resp 18 B/P (MAP) 145/77 (99) Pulse Ox 95 O2 Delivery Room Air FiO2 21 Capillary Refill : Less Than 3 Seconds Height, Weight, BMI Height: 5'0.00" Weight: 137lbs. 6.0oz. 62.194884dj; 26.8 BMI Method:Stated General Appearance: WD/WN, Chronically ill, Mild Distress Eyes: Bilateral Eye Normal Inspection, Bilateral Eye PERRL HEENT: PERRL/EOMI, Normal ENT Inspection, Pharynx Normal Neck: Full Range of Motion, Normal Inspection, Non Tender, Supple, Carotid Bruit Respiratory: Chest Non Tender, Lungs Clear, Normal Breath Sounds, No Accessory Muscle Use, No Respiratory Distress Cardiovascular: Regular Rate, Rhythm, No Edema, No Gallop, No JVD, No Murmur, Normal Peripheral Pulses Gastrointestinal: Normal Bowel Sounds, No Organomegaly, No Pulsatile Mass, Non Tender, Soft Back: Normal Inspection, No CVA Tenderness, No Vertebral Tenderness Extremity: Normal Capillary Refill, Normal Inspection, Normal Range of Motion, Non Tender, No Calf Tenderness, No Pedal Edema Neurologic/Psychiatric: Alert, Oriented x3, No Motor/Sensory Deficits, Normal Mood/Affect Skin: Normal Color, Warm/Dry Lymphatic: No Adenopathy Results Results/Procedures Labs Laboratory Tests 11/23/18 10:47 11/23/18 15:22 11/23/18 17:30 Patient resulted labs reviewed. Assessment/Plan Admission Diagnosis Assessment: Severe hyperglycemia requiring insulin drip Severe nausea and vomiting unable to tolerate oral liquids or nutrition Smoker Chronic pain GERD Hypertension Peripheral neuropathy Depression Chronic disability Plan: Insulin drip Home meds Morphine 4 mg IV every 3 hours as needed pain Nausea medicine Supportive care Admission Status: Inpatient Order (span 2 midnights) Reason for Inpatient Admission: Severe hyperglycemia with severe nausea and vomiting unable to maintain insulin and adequate oral intake will take 3 days of hospital stay Diagnosis/Problems Diagnosis/Problems (1) Uncontrolled diabetes mellitus with hyperglycemia Status: Acute Qualifiers: Diabetes mellitus type: type 1 Qualified Codes: E10.65 - Type 1 diabetes mellitus with hyperglycemia (2) Intractable nausea and vomiting Status: Acute Qualifiers: Vomiting type: unspecified Qualified Codes: R11.2 - Nausea with vomiting, unspecified (3) Chronic pain Status: Chronic Qualifiers: Chronic pain type: chronic pain syndrome Qualified Codes: G89.4 - Chronic pain syndrome (4) Peripheral neuropathy Status: Chronic Qualifiers: Peripheral neuropathy type: mononeuropathy due to underlying disease Qualified Codes: G59 - Mononeuropathy in diseases classified elsewhere (5) Medical non-compliance Status: Chronic (6) Hyponatremia Status: Acute (7) Chronic back pain Status: Chronic Qualifiers: Back pain location: back pain in unspecified location Back pain laterality : unspecified Qualified Codes: M54.9 - Dorsalgia, unspecified; G89.29 - Other chronic pain (8) Insomnia Status: Chronic Qualifiers: Insomnia type: primary Qualified Codes: F51.01 - Primary insomnia (9) Depression Status: Chronic Qualifiers: Depression Type: unspecified Qualified Codes: F32.9 - Major depressive disorder, single episode, unspecified (10) Smoker Status: Chronic Clinical Quality Measures DVT/VTE Risk/Contraindication: Risk Factor Score Per Nursin RFS Level Per Nursing on Admit: 4+=Very High JAZMINE BERRY DO Nov 23, 2018 18:37
[2018-11-23] MEDS: RT-ALBUTEROL/IPRATROPIUM 3 ML (DUONEB) VIAL INH SCH (19:58)
[2018-11-23 20:45] LABS: BUN/CREATININE RATIO 20; CALCIUM 8.2 MG/DL (8.5-10.1); CARBON DIOXIDE 21 MMOL/L (21-32); CHLORIDE 105 MMOL/L (98-107); CREATININE SERUM 0.83 MG/DL (0.60-1.30); GFR ESTIMATED > 60; GLUCOSE 287 MG/DL (70-105); POTASSIUM 3.8 MMOL/L (3.6-5.0); SODIUM 136 MMOL/L (135-145)
[2018-11-23] MEDS ORDERED: diphenhydrAMINE 25 MG TAB (BENADRYL) PO PRN (20:45)
[2018-11-23] MEDS ORDERED: ACETAMINOPHEN 500 MG TAB (TYLENOL) PO PRN (20:45)
[2018-11-23] MEDS ORDERED: DOCUSATE SODIUM 100 MG (COLACE) CAP PO PRN (20:45)
[2018-11-23] MEDS ORDERED: SCOPOLAMINE 1.5 MG (TRANSDERM-SCOP) PATCH TD PRN (20:45)
[2018-11-23] MEDS ORDERED: CALCIUM CARBONATE 500 MG (TUMS) TAB.CHEW PO PRN (20:45)
[2018-11-23] MEDS ORDERED: ALPRAZolam 0.25 MG (XANAX) TAB PO PRN (20:45)
[2018-11-23] MEDS ORDERED: LOPERAMIDE 2 MG (IMODIUM) CAP PO PRN (20:45)
[2018-11-23] MEDS: morphine INJ 4 MG/ML 1 ML (VIAL/SYRINGE) IVP PRN (20:46)
[2018-11-23] MEDS ORDERED: NON-FORMULARY MEDICATION 1 EA EA (Gabapentin 1,600 MG) PO SCH (21:00)
[2018-11-23] MEDS ORDERED: NON-FORMULARY MEDICATION 1 EA EA (Mirtazapine 15 MG) PO SCH (21:00)
[2018-11-23] MEDS ORDERED: ATORVASTATIN 40 MG (LIPITOR) TABLET PO SCH (21:00)
[2018-11-23] MEDS ORDERED: MIRTAZAPINE 15 MG (REMERON) TAB PO SCH (21:00)
[2018-11-23] MEDS ORDERED: GABAPENTIN 400 MG (NEURONTIN) CAP PO SCH (21:00)
[2018-11-23] MEDS ORDERED: MELATONIN 3 MG TABLET PO SCH (21:00)
[2018-11-24] VITALS: BP 128/68
[2018-11-24] MEDS: POTASSIUM CL 10MEQ/50ML IVPB 50 ML IV SCH ×3 (00:27→04:51)
[2018-11-24] MEDS: morphine INJ 4 MG/ML 1 ML (VIAL/SYRINGE) IVP PRN ×3 (00:35→08:35)
[2018-11-24] MEDS: D5 1/2 NS 1000 ML IV SOLUTION 1,000 ML IV SCH ×2 (01:14→05:22)
[2018-11-24] MEDS: 1/2 NS IV SOLUTION 1,000 ML IV SCH ×3 (03:28→07:20)
[2018-11-24 04:00] VITALS: BP 130/81
[2018-11-24 04:49] LABS: BUN/CREATININE RATIO 15; CALCIUM 8.2 MG/DL (8.5-10.1); CARBON DIOXIDE 21 MMOL/L (21-32); CHLORIDE 106 MMOL/L (98-107); CREATININE SERUM 0.72 MG/DL (0.60-1.30); GFR ESTIMATED > 60; GLUCOSE 117 MG/DL (70-105); POTASSIUM 3.5 MMOL/L (3.6-5.0); SODIUM 134 MMOL/L (135-145)
[2018-11-24] MEDS: oxyCODONE/APAP 10/325MG (PERCOCET 10) TABLET PO PRN ×3 (04:51→14:48)
--- NOTE | 2018-11-24 06:40 | Pulmonary Consultation ---
History of Present Illness History of Present Illness Date of Consultation 11/24/18 06:35 Time Seen by Provider: 06:35 Date of Admission History of Present Illness his is a 58-year-old white female [facility] with a prior history of multiple hospital stays due to DKA and severe hyperglycemia and nausea and vomiting who presents to the ER with nausea and vomiting. She was found to have very high sugars and unable to eat or drink and maintain insulin regimen so she was placed in the hospital with non-DKA insulin drip. She is on chronic pain medication and already asking for pain medication through her IV since she is unable to tolerate oral route. I checked meds and labs and restarted most of her other medicine. Allergies and Home Medications Allergies Coded Allergies: ketorolac (Verified Allergy, Severe, ANAPHYLAXIS, PT TAKES ASA AT HOME, 11/23/18) ondansetron (Verified Allergy, Intermediate, RASH, 11/23/18) RASH/ HIVES exenatide (Verified Allergy, Unknown, NAUSEA, 11/23/18) NON STOP VOMITING latex (Verified Allergy, Unknown, RASH, 11/23/18) metoclopramide (Verified Allergy, Unknown, RESTLESS LEGS, 11/23/18) Home Medications Amlodipine Besylate 10 Mg Tablet, 10 MG PO DAILY, (Reported) LAST FILLED #21 AUG 2018 Aspirin 81 Mg Tablet.dr, 81 MG PO DAILY, (Reported) Atorvastatin Calcium 40 Mg Tablet, 40 MG PO HS, (Reported) LAST FILLED #30 10-11-18 Gabapentin 800 Mg Tablet, 1,600 MG PO HS, (Reported) TAKES 2 (800MG) TABLETS Gabapentin 800 Mg Tablet, 800 MG PO DAILY PRN for NERVE PAIN, (Reported) Insulin Detemir 100 Unit/1 Ml Insuln.pen, 30 UNIT SQ DAILY, (Reported) LAST FILLED AUGUST 2018 Insulin Lispro 100 Unit/1 Ml Insuln.pen, SQ TIDAC, (Reported) LAST FILLED MARCH 2018 Linagliptin 5 Mg Tablet, 5 MG PO DAILY, (Reported) Melatonin 5 Mg Capsule, 5 MG PO HS PRN for SLEEP, (Reported) Mirtazapine 15 Mg Tablet, 15 MG PO HS, (Reported) Omeprazole 20 Mg Capsule.dr, 20 MG PO DAILY, (Reported) Oxycodone HCl 10 Mg Tablet, 10 MG PO DAILY, (Reported) Oxycodone HCl/Acetaminophen 1 Each Tablet, 1 TAB PO Q4H PRN for PAIN-MODERATE, ( Reported) Past Pzvdmlj-Bsdyyq-Nbqhxz Hx Past Med/Social Hx: Reviewed Nursing Past Med/Soc Hx, Reviewed and Corrections made Patient Social History Alcohol Use: Denies Use Number of Drinks Today: Alcohol Beverage of Choice: Wine Recreational Drug Use: No Smoking Status: Current Everyday Smoker Type Used: Cigarettes Former Smoker, Quit: Nov 10, 2017 2nd Hand Smoke Exposure: No Recent Foreign Travel: No Contact w/Someone Who Travel: No Recent Infectious Disease Expo: No Recent Hopitalizations: Yes Immunizations Up To Date Tetanus Booster (TDap): Unknown PED Vaccines UTD: No Date of Pneumonia Vaccine: Dec 12, 2013 Date of Influenza Vaccine: Sep 22, 2018 Seasonal Allergies Seasonal Allergies: Yes Past Medical History Surgeries: Yes Cardiac, Coronary Stent, Ear Surgery, Gallbladder, Orthopedic, Renal Respiratory: Yes (HX OF TOBACCO USE--1 PPD) Chronic Bronchitis, Sleep Apnea Currently Using CPAP: Yes (AT HOME) Currently Using BIPAP: No Cardiac: Yes (CARDIAC STENTS; DVT'S IN ARMS) Chronic Edema/Swelling, Coronary Artery Disease, Deep Vein Thrombosis, High Cholesterol, Hypertension Neurological: Yes (NEUROPATHY IN HANDS AND FEET) Headaches /Migraines, Neuropathy 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 Disorders: No 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 Disorders: Denies 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 Sexually Transmitted Disease: No HIV/AIDS: No Genitourinary: Yes Bladder Infection, Kidney Stones, Renal Failure Gastrointestinal: Yes Gastroesophageal Reflux, Diverticulosis, Hiatal Hernia, Irritable Bowel Musculoskeletal: Yes Degenerate Disk Disease, Fibromyalgia, Chronic Back Pain Endocrine: Yes Diabetes, Insulin dep Are Your Blood Sugars Over 250: Yes HEENT: Yes (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; POOR DENTITION) Chronic Ear Infection Loss of Vision: Denies Hearing Impairment: Hard of Hearing Cancer: No Psychosocial: Yes Anxiety Integumentary: Yes Psoriasis Blood Disorders: No Adverse Reaction/Blood Tranf: No Family Medical History Reviewed Nursing Family Hx Cancer of mouth 19 FATHER ( of esophogeal cancer.) Cardiovascular disease 19 MOTHER G8 BROTHER Completed stroke 19 FATHER G8 BROTHER Diabetes mellitus G8 BROTHER FH: lung cancer 19 MOTHER Hypertension 19 FATHER Kidney disease 19 FATHER Myocardial infarction 19 MOTHER G8 BROTHER Respiratory disorder No Family History of: AIDS CAD Over 55 Years Old, CVA, Diabetes, Renal Disease Sepsis Event Evaluation Height, Weight, BMI Height: 5'0.00" Weight: 140lbs. 6.0oz. 63.900367vr; 26.8 BMI Method:Stated Exam Exam Vital Signs Date Time Temp Pulse Resp B/P (MAP) Pulse Ox O2 Delivery O2 Flow Rate FiO2 11/24/18 04:00 95 Room Air 11/24/18 04:00 97.6 67 130/81 (97) Room Air 11/24/18 01:00 83 11/24/18 00:00 95 Room Air 11/24/18 00:00 70 10 128/68 (88) Room Air 11/23/18 21:00 95 Room Air 11/23/18 20:00 95 Room Air 11/23/18 20:00 98.0 77 12 125/67 (86) 100 Room Air 11/23/18 19:58 94 Room Air 11/23/18 19:45 74 12 125/80 (95) 94 Room Air 11/23/18 19:30 75 13 105/68 (80) 92 Room Air 11/23/18 19:15 76 12 98/57 (71) 93 Room Air 11/23/18 19:00 77 13 111/66 (81) 93 Room Air 11/23/18 19:00 77 11/23/18 17:02 98.4 11/23/18 17:00 75 149/77 (101) 96 Room Air 11/23/18 16:38 95 Room Air 11/23/18 16:00 76 13 119/76 (90) 95 Room Air 11/23/18 15:45 77 15 132/77 (95) 95 Room Air 11/23/18 15:32 78 96 21 11/23/18 15:30 78 10 117/77 (90) 95 Room Air 11/23/18 15:15 81 12 114/72 (86) 96 Room Air 11/23/18 15:04 98.3 87 14 114/72 (86) Room Air 11/23/18 15:03 85 11/23/18 15:03 83 18 120/66 (84) 94 Room Air 11/23/18 15:00 96 Room Air 11/23/18 10:21 97.2 88 18 145/77 (99) 95 I & O 11/24/18 07:00 Intake Total 1850 ml Output Total 1325 ml Balance 525 ml Height & Weight Height: 5'0.00" Weight: 140lbs. 6.0oz. 63.546096jc; 26.8 BMI Method:Stated General Appearance: WD/WN, Chronically ill, Mild Distress HEENT: PERRL/EOMI, Normal ENT Inspection, Pharynx Normal Neck: Full Range of Motion, Normal Inspection, Non Tender, Supple, Carotid Bruit Respiratory: Chest Non Tender, Lungs Clear, Normal Breath Sounds, No Accessory Muscle Use, No Respiratory Distress Cardiovascular: Regular Rate, Rhythm, No Edema, No Gallop, No JVD, No Murmur, Normal Peripheral Pulses Capillary Refill: Less Than 3 Seconds Peripheral Pulses: 2+ Dorsalis Pedis (R), 2+ Left Dors-Pedis (L), 2+ Radial Pulses (R), 2+ Radial Pulses (L) Gastrointestinal: soft; No guarding, No rebound; tenderness (diffuse mild) Extremity: Normal Capillary Refill, Normal Inspection, Normal Range of Motion, Non Tender, No Calf Tenderness, No Pedal Edema Neurologic/Psychiatric: Alert, Oriented x3, No Motor/Sensory Deficits, Normal Mood/Affect Skin: Normal Color, Warm/Dry Lymphatic: No Adenopathy Results Lab Laboratory Tests 11/23/18 10:47 11/23/18 15:22 11/23/18 17:30 11/23/18 20:05 11/24/18 03:50 Assessment/Plan Assessment/Plan Acute DKA -Gap is closed, C02 is normal -Start Levemir then d/C insulin gtt 2hrs later -Pt was on 30units Levemir as out patient -Will do 15 units BID today then 30units QHS starting tomorrow. Hyponatremia -monitor Uncontrolled DM Intractable N/V Chronic pain Peripheral neuropathy Medical noncompliance tobacco dependance KIM FUNEZ DO Nov 24, 2018 06:40
[2018-11-24] MEDS ORDERED: PANTOPRAZOLE 20 MG TABLET (PROTONIX) PO SCH (07:00)
[2018-11-24 08:00] VITALS: BP 106/63
[2018-11-24] MEDS: RT-ALBUTEROL/IPRATROPIUM 3 ML (DUONEB) VIAL INH SCH (08:00)
[2018-11-24] MEDS ORDERED: inSUlin DETERMIR 1 UNIT/0.01 ML (LEVEMIR) CHARGE PER UNIT SQ ONE (09:00)
[2018-11-24] MEDS ORDERED: ASPIRIN E.C. 81 MG (ECOTRIN) TAB PO SCH (09:00)
[2018-11-24] MEDS ORDERED: NON-FORMULARY MEDICATION 1 EA EA (Amlodipine Besylate 10 MG) PO SCH (09:00)
[2018-11-24] MEDS ORDERED: amLODIPine 10 MG (NORVASC) TAB PO SCH (09:00)
[2018-11-24] MEDS ORDERED: NON-FORMULARY MEDICATION 1 EA EA (Oxycodone HCl 10 MG) PO SCH (09:00)
[2018-11-24] MEDS ORDERED: OMEPRAZOLE 20 MG (PriLOSEC) CAP NON-FORMULARY PO SCH (09:00)
[2018-11-24] MEDS: PROMETHAZINE INJ 25 MG/ML (PHENERGAN) AMP IV PRN (09:29)
--- NOTE | 2018-11-24 09:58 | Progress Note-Hospitalist ---
Subjective HPI/CC On Admission Date Seen by Provider: Nov 24, 2018 Time Seen by Provider: 09:30 CC: Nausea and vomiting with severe hyperglycemia HPI: This is a 58-year-old white female [facility] with a prior history of multiple hospital stays due to DKA and severe hyperglycemia and nausea and vomiting who presents to the ER with nausea and vomiting. She was found to have very high sugars and unable to eat or drink and maintain insulin regimen so she was placed in the hospital with non-DKA insulin drip. She is on chronic pain medication and already asking for pain medication through her IV since she is unable to tolerate oral route. I checked meds and labs and restarted most of her other medicine. Subjective/Events-last exam Patient doing much better Blood sugars better Always has hesitation about discharge home and she lives in the [facility] Talked her about a nursing facility placement and she does not appear to be interested in that Discontinue morphine IV and switched to solely on oral pain medication We'll consult Dr. Villegas regarding continuing nausea and vomiting Overall poor prognosis considering such severe diabetes and noncompliance Review of Systems General: Fatigue Gastrointestinal: Nausea, Vomiting Musculoskeletal: back pain Objective Exam Vital Signs Vital Signs Date Time Temp Pulse Resp B/P (MAP) Pulse Ox O2 Delivery O2 Flow Rate FiO2 11/24/18 09:00 95 Room Air 11/24/18 08:00 70 15 106/63 (77) 11/24/18 07:49 98.6 11/23/18 15:32 21 Capillary Refill : Less Than 3 Seconds General Appearance: No Apparent Distress, WD/WN, Chronically ill Respiratory: Chest Non Tender, Lungs Clear, Normal Breath Sounds, No Accessory Muscle Use, No Respiratory Distress Cardiovascular: Regular Rate, Rhythm, No Edema, No Gallop, No JVD, No Murmur, Normal Peripheral Pulses Neurologic/Psychiatric: Alert, Oriented x3, No Motor/Sensory Deficits, Normal Mood/Affect Results/Procedures Lab Laboratory Tests 11/23/18 10:47 11/23/18 15:22 11/23/18 17:30 11/23/18 20:05 11/24/18 03:50 Patient resulted labs reviewed. Assessment/Plan Assessment and Plan Assess & Plan/Chief Complaint Assessment: Severe hyperglycemia requiring insulin drip now transitioning to SQ insulin and hopefully DC Severe nausea and vomiting unable to tolerate oral liquids or nutrition now improved but will consult Dr Villegas in case he has anything to add Smoker Chronic pain GERD Hypertension Peripheral neuropathy Depression Chronic disability Prefers to stay in hospital long-term and declines NH placement Plan: DC insulin drip Subcutaneous insulin DC morphine IV Consult surgery and case nausea and vomiting can be managed in a different way Hopefully discharge later today Diagnosis/Problems Diagnosis/Problems (1) Uncontrolled diabetes mellitus with hyperglycemia Status: Resolved Qualifiers: Diabetes mellitus type: type 1 Qualified Codes: E10.65 - Type 1 diabetes mellitus with hyperglycemia Resolution Date/Time: 11/24/18 @ 10:48 (2) Intractable nausea and vomiting Status: Acute Qualifiers: Vomiting type: unspecified Qualified Codes: R11.2 - Nausea with vomiting, unspecified (3) Chronic pain Status: Chronic Qualifiers: Chronic pain type: chronic pain syndrome Qualified Codes: G89.4 - Chronic pain syndrome (4) Peripheral neuropathy Status: Chronic Qualifiers: Peripheral neuropathy type: mononeuropathy due to underlying disease Qualified Codes: G59 - Mononeuropathy in diseases classified elsewhere (5) Medical non-compliance Status: Chronic (6) Hyponatremia Status: Resolved Resolution Date/Time: 11/24/18 @ 10:48 (7) Chronic back pain Status: Chronic Qualifiers: Back pain location: back pain in unspecified location Back pain laterality : unspecified Qualified Codes: M54.9 - Dorsalgia, unspecified; G89.29 - Other chronic pain (8) Insomnia Status: Chronic Qualifiers: Insomnia type: primary Qualified Codes: F51.01 - Primary insomnia (9) Depression Status: Chronic Qualifiers: Depression Type: unspecified Qualified Codes: F32.9 - Major depressive disorder, single episode, unspecified (10) Smoker Status: Chronic Clinical Quality Measures DVT/VTE Risk/Contraindication: Risk Factor Score Per Nursin RFS Level Per Nursing on Admit: 4+=Very High AZEEM MELVIN DO Nov 24, 2018 09:58
[2018-11-24 11:00] VITALS: BP 114/73
[2018-11-24] MEDS ORDERED: inSUlin ASPART (NovoLOG) 1 UNIT/0.01 ML (CHARGE PER UNIT) SC SCH (11:00)
[2018-11-24] MEDS ORDERED: HEParin (CENTRAL IV FLUSH) 500 UNIT/5 ML SYR ONE (14:38)
--- NOTE | 2018-11-24 15:20 | Consultation ---
History of Present Illness History of Present Illness Patient Consulted On(joshua/time) 11/24/18 15:15 Time Seen by Provider: 10:59 History of Present Illness Surgery asked to consult regarding abdominal pain, nausea and vomiting. HPI per ED: Here with report of high blood sugar. Apparently has been having nausea, vomiting and diarrhea for a week. She noted that her blood sugars were high last night so took 30 units of insulin. There is still has this morning so she took another 30 units of insulin and then started having vomiting again. She called EMS. EMS did access her port and started normal saline 1 L bolus. She did get Phenergan 25 mg IV. On arrival she asked for Benadryl. Does report taking her meds as directed otherwise. Timing/Duration: 1 Week, Getting Worse Severity/Quality: Moderate, Severe, Cramping Location: Generalized Abdomen Radiation: No Radiation Activities at Onset: None Modifying Factors: Worsens With Eating Associated Symptoms: No Back Pain, No Chest Pain, No Fever/Chills; Nausea/ Vomiting; No Shortness of Air, No Swelling/Mass in Abdomen; + Weakness When I saw pt today she states the vomiting was gone, but still nauseous. She was having lower abdominal pain, dull and achey, which nothing seemed to make better. However, it was not getting worse and she has had this pain for a while. She had tolerated clears and was about to eat soft diet when I saw her. She states she recently had an EGD and colonoscopy; "besides some diverticula nothing much was found." Allergies and Home Medications Allergies Coded Allergies: ketorolac (Verified Allergy, Severe, ANAPHYLAXIS, PT TAKES ASA AT HOME, 11/23/18) ondansetron (Verified Allergy, Intermediate, RASH, 11/23/18) RASH/ HIVES exenatide (Verified Allergy, Unknown, NAUSEA, 11/23/18) NON STOP VOMITING latex (Verified Allergy, Unknown, RASH, 11/23/18) metoclopramide (Verified Allergy, Unknown, RESTLESS LEGS, 11/23/18) Home Medications Amlodipine Besylate 10 Mg Tablet, 10 MG PO DAILY, (Reported) LAST FILLED #30 JUL 2018 Aspirin 81 Mg Tablet.dr, 81 MG PO DAILY, (Reported) Atorvastatin Calcium 40 Mg Tablet, 40 MG PO HS, (Reported) LAST FILLED #30 10-11-18 Gabapentin 800 Mg Tablet, 1,600 MG PO HS, (Reported) TAKES 2 (800MG) TABLETS Gabapentin 800 Mg Tablet, 800 MG PO DAILY PRN for NERVE PAIN, (Reported) Insulin Detemir 100 Unit/1 Ml Insuln.pen, 30 UNIT SQ DAILY, (Reported) LAST FILLED AUGUST 2018 Insulin Lispro 100 Unit/1 Ml Insuln.pen, SQ TIDAC, (Reported) LAST FILLED MARCH 2018 Linagliptin 5 Mg Tablet, 5 MG PO DAILY, (Reported) Melatonin 5 Mg Capsule, 5 MG PO HS PRN for SLEEP, (Reported) Mirtazapine 15 Mg Tablet, 15 MG PO HS, (Reported) Omeprazole 20 Mg Capsule.dr, 20 MG PO DAILY, (Reported) Oxycodone HCl 10 Mg Tablet, 10 MG PO DAILY, (Reported) Oxycodone HCl/Acetaminophen 1 Each Tablet, 1 TAB PO Q4H PRN for PAIN-MODERATE, ( Reported) Patient Home Medication List Home Medication List Reviewed: Yes Past Mgsffin-Ppkdla-Fxnqoe Hx Patient Social History Alcohol Use: Denies Use Number of Drinks Today: Recreational Drug Use: No Smoking Status: Current Everyday Smoker Former Smoker, Quit: Nov 10, 2017 Type Used: Cigarettes 2nd Hand Smoke Exposure: No Recent Foreign Travel: No Contact w/Someone Who Travel: No Recent Infectious Disease Expo: No Recent Hopitalizations: Yes Physical Abuse Screen: No Sexual Abuse: No Immunizations Up To Date Tetanus Booster (TDap): Unknown PED Vaccines UTD: No Date of Pneumonia Vaccine: Dec 12, 2013 Date of Influenza Vaccine: Sep 22, 2018 Seasonal Allergies Seasonal Allergies: Yes Surgeries History of Surgeries: Yes Surgeries: Cardiac, Coronary Stent, Ear Surgery, Gallbladder, Orthopedic, Renal Respiratory History of Respiratory Disorde: Yes (HX OF TOBACCO USE--1 PPD) Respiratory Disorders: Chronic Bronchitis, Sleep Apnea Cardiovascular History of Cardiac Disorders: Yes (CARDIAC STENTS; DVT'S IN ARMS) Cardiac Disorders: Chronic Edema/Swelling, Coronary Artery Disease, Deep Vein Thrombosis, High Cholesterol, Hypertension Neurological History of Neurological Disord: Yes (NEUROPATHY IN HANDS AND FEET) Neurological Disorders: Headaches /Migraines, Neuropathy 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 System Hx 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 Disorders: No Sexually Transmitted Disease: No HIV/AIDS: No 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 Disorders: 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 Genitourinary History of Genitourinary Disor: Yes Genitourinary Disorders: Bladder Infection, Kidney Stones, Renal Failure Gastrointestinal History of Gastrointestinal Di: Yes Gastrointestinal Disorders: Gastroesophageal Reflux, Diverticulosis, Hiatal Hernia, Irritable Bowel Musculoskeletal History of Musculoskeletal Dis: Yes Musculoskeletal Disorders: Degenerate Disk Disease, Fibromyalgia, Chronic Back Pain Endocrine History of Endocrine Disorders: Yes Endocrine Disorders: Diabetes, Insulin dep HEENT History of HEENT Disorders: Yes (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; POOR DENTITION) HEENT Disorders: Chronic Ear Infection Loss of Vision: Denies Hearing Impairment: Hard of Hearing Cancer History of Cancer: No Psychosocial History of Psychiatric Problem: Yes Behavioral Health Disorders: Anxiety Integumentary History of Skin or Integumenta: Yes Skin/Integumentary Disorders: Psoriasis Blood Transfusions History of Blood Disorders: No Adverse Reaction to a Blood Tr: No Family Medical History Significant Family History: CAD Over 55 Years Old, CVA, Diabetes, GI Disease ( mother and brother have had Diverticulitis attacks), Renal Disease Family Medial History: Cancer of mouth 19 FATHER ( of esophogeal cancer.) Cardiovascular disease 19 MOTHER G8 BROTHER Completed stroke 19 FATHER G8 BROTHER Diabetes mellitus G8 BROTHER FH: lung cancer 19 MOTHER Hypertension 19 FATHER Kidney disease 19 FATHER Myocardial infarction 19 MOTHER G8 BROTHER Respiratory disorder No Family History of: AIDS Review of Systems-General Constitutional: chills, diaphoresis, malaise, weakness EENTM: blurred vision; No double vision, No mouth pain, No mouth swelling, No epistaxis, No throat pain Respiratory: cough, dyspnea on exertion; No hemoptysis Cardiovascular: No chest pain, No edema, No palpitations Gastrointestinal: abdominal pain; No jaundice; nausea; No vomiting Genitourinary: No dysuria; frequency; No hematuria Musculoskeletal: back pain, joint pain, muscle pain, muscle stiffness Skin: No change in color, No change in hair/nails Psychiatric/Neurological: Anxiety; Denies Seizure; Weakness Other pt denies any abnormal bruising or bleeding Physical Exam-General Problems Physical Exam Vital Signs Vital Signs - First Documented 11/23/18 11/23/18 11/23/18 10:21 15:00 15:32 Temp 97.2 Pulse 88 Resp 18 B/P (MAP) 145/77 (99) Pulse Ox 95 O2 Delivery Room Air FiO2 21 Capillary Refill : Less Than 3 Seconds General Appearance: WD/WN, mild distress Eyes: Bilateral Eye PERRL, Bilateral Eye EOMI HEENT: pharynx normal; No scleral icterus (R), No scleral icterus (L); other ( poor dentition) Neck: non-tender, supple; No thyromegaly Respiratory: no respiratory distress, no accessory muscle use, decreased breath sounds Cardiovascular: regular rate, rhythm, no edema, no murmur Gastrointestinal: soft, no organomegaly, no pulsatile mass, tenderness (mild tenderness in b/l lower quadrants ) Back: no CVA tenderness Extremities: no calf tenderness (left), other (right leg amputation) 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, alert, oriented x 3 Skin: normal color, warm/dry Lymphatic: no adenopathy (neck, axilla or groin) Data Review Labs Laboratory Tests 11/23/18 15:21: Glucometer 282H 11/23/18 15:22: Sodium Level 139, Potassium Level 3.4L, Chloride Level 104, Carbon Dioxide Level 22, Anion Gap 13, Blood Urea Nitrogen 18, Creatinine 0.97, Estimat Glomerular Filtration Rate 59, BUN/Creatinine Ratio 19, Glucose Level 268H, Calcium Level 8.9 11/23/18 16:19: Glucometer 201H 11/23/18 17:22: Glucometer 164H 11/23/18 17:30: Sodium Level 139, Potassium Level 3.6, Chloride Level 106, Carbon Dioxide Level 21, Anion Gap 12, Blood Urea Nitrogen 17, Creatinine 0.85, Estimat Glomerular Filtration Rate > 60, BUN/Creatinine Ratio 20, Glucose Level 173H, Calcium Level 8.9 11/23/18 18:28: Glucometer 178H 11/23/18 20:01: Glucometer 280H 11/23/18 20:05: Sodium Level 136, Potassium Level 3.8, Chloride Level 105, Carbon Dioxide Level 21, Anion Gap 10, Blood Urea Nitrogen 17, Creatinine 0.83, Estimat Glomerular Filtration Rate > 60, BUN/Creatinine Ratio 20, Glucose Level 287H, Calcium Level 8.2L 11/23/18 20:37: Glucometer 290H 11/23/18 21:36: Glucometer 313H 11/23/18 22:41: Glucometer 306H 11/23/18 23:30: Glucometer 284H 11/24/18 00:29: Glucometer 210H 11/24/18 01:41: Glucometer 174H 11/24/18 02:29: Glucometer 142H 11/24/18 03:50: Sodium Level 134L, Potassium Level 3.5L, Chloride Level 106, Carbon Dioxide Level 21, Anion Gap 7, Blood Urea Nitrogen 11, Creatinine 0.72, Estimat Glomerular Filtration Rate > 60, BUN/Creatinine Ratio 15, Glucose Level 117H, Calcium Level 8.2L 11/24/18 03:53: Glucometer 122H 11/24/18 04:47: Glucometer 113H 11/24/18 05:28: Glucometer 97 11/24/18 06:40: Glucometer 171H 11/24/18 08:43: Glucometer 201H 11/24/18 11:05: Glucometer 233H Assessment/Plan Assessment/Plan Assessment/Plan Abdominal pain - improving Nausea & Vomiting - vomiting is now gone Gastritis Diverticula I don't believe pt has diverticulitis or anything that needs surgey at this time. I think most of her GI problems are related to her DKA and poorly controlled blood sugars. She must stick to a better diet. Continue anti-emetics as needed, pt is beginning to tolerate more food. Will sign off, thank you for this consult. Clinical Quality Measures DVT/VTE Risk/Contraindication: Risk Factor Score Per Nursin RFS Level Per Nursing on Admit: 4+=Very High ORI AYON DO Nov 24, 2018 15:20
[2018-11-25] MEDS ORDERED: inSUlin DETERMIR 1 UNIT/0.01 ML (LEVEMIR) CHARGE PER UNIT SQ SCH (21:00)
== END 2018-11-24 15:00 | disposition home or self-care (01) | DRG 638 ==
LOC: EDUNIT# 10:21 → ER 10:22 → ICU 14:28
PROVIDERS: ADMIT Internal Medicine; ATTEND Internal Medicine
DX: E10.65 Type 1 diabetes mellitus with hyperglycemia (principal); E10.42 Type 1 diabetes mellitus with diabetic polyneuropathy; E87.1 Hypo-osmolality and hyponatremia; R11.2 Nausea with vomiting, unspecified; R19.7 Diarrhea, unspecified; G47.30 Sleep apnea, unspecified; I25.10 Atherosclerotic heart disease of native coronary artery without angina pectoris; R60.9 Edema, unspecified; I10 Essential (primary) hypertension; E78.00 Pure hypercholesterolemia, unspecified; K21.9 Gastro-esophageal reflux disease without esophagitis; M54.9 Dorsalgia, unspecified; G89.29 Other chronic pain; F32.9 Major depressive disorder, single episode, unspecified; K29.70 Gastritis, unspecified, without bleeding; K57.30 Diverticulosis of large intestine without perforation or abscess without bleeding; Z87.891 Personal history of nicotine dependence; Z79.4 Long term (current) use of insulin; Z86.718 Personal history of other venous thrombosis and embolism; Z95.5 Presence of coronary angioplasty implant and graft; Z91.19 Patient's noncompliance with other medical treatment and regimen
CPT/HCPCS: 36415; 80048; 80053; 81000; 82962; 83690; 83735; 85025; 86141; 87088; 94640; 96361; 96372; 96374; 96375

== ENCOUNTER 2018-12-24 14:37 | Emergency (ER) | payer MEDICARE ==
[~2018-12-24] VITALS: Ht 157.5 cm; Wt 65.8 kg
[~2018-12-24 14:37] MED LIST changes: -AMLO10TA6 PO; +AMLO10TA7 PO; -AMLO5TAB7 PO; +AMLO5TAB9 PO; +GABA800T10 PO; -GABA800T2 PO; +MELA5CAP PO; +MIRT15TA6 PO
--- NOTE | 2018-12-24 14:43 | ED General ---
General Chief Complaint: Glucose Problems Stated Complaint: HYPERGLYCEMIC Source of Information: Patient, EMS Exam Limitations: No Limitations History of Present Illness Date Seen by Provider: Dec 24, 2018 Time Seen by Provider: 14:42 Initial Comments To ER per EMS with reports of high blood sugar. She's had nausea vomiting diarrhea and abdominal pain since last night. She claims to have taken 30 units of regular insulin this morning but despite this her blood sugar still too high to read. Timing/Duration: 1-2 Days Severity: Moderate Associated Systoms: Nausea/Vomiting Allergies and Home Medications Allergies Coded Allergies: ketorolac (Verified Allergy, Severe, ANAPHYLAXIS, PT TAKES ASA AT HOME, 11/23/18) ondansetron (Verified Allergy, Intermediate, RASH, 11/23/18) RASH/ HIVES exenatide (Verified Allergy, Unknown, NAUSEA, 11/23/18) NON STOP VOMITING latex (Verified Allergy, Unknown, RASH, 11/23/18) metoclopramide (Verified Allergy, Unknown, RESTLESS LEGS, 11/23/18) Home Medications Amlodipine Besylate 10 Mg Tablet, 10 MG PO DAILY, (Reported) LAST FILLED #21 AUG 2018 Aspirin 81 Mg Tablet.dr, 81 MG PO DAILY, (Reported) Atorvastatin Calcium 40 Mg Tablet, 40 MG PO HS, (Reported) LAST FILLED #30 10-11-18 Gabapentin 800 Mg Tablet, 1,600 MG PO HS, (Reported) TAKES 2 (800MG) TABLETS Gabapentin 800 Mg Tablet, 800 MG PO DAILY PRN for NERVE PAIN, (Reported) Insulin Detemir 100 Unit/1 Ml Insuln.pen, 30 UNIT SQ DAILY, (Reported) LAST FILLED AUGUST 2018 Insulin Lispro 100 Unit/1 Ml Insuln.pen, SQ TIDAC, (Reported) LAST FILLED MARCH 2018 Linagliptin 5 Mg Tablet, 5 MG PO DAILY, (Reported) Melatonin 5 Mg Capsule, 5 MG PO HS PRN for SLEEP, (Reported) Mirtazapine 15 Mg Tablet, 15 MG PO HS, (Reported) Omeprazole 20 Mg Capsule.dr, 20 MG PO DAILY, (Reported) Oxycodone HCl 10 Mg Tablet, 10 MG PO DAILY, (Reported) Oxycodone HCl/Acetaminophen 1 Each Tablet, 1 TAB PO Q4H PRN for PAIN-MODERATE, ( Reported) Patient Home Medication List Home Medication List Reviewed: Yes Review of Systems Review of Systems Constitutional: see HPI EENTM: see HPI Respiratory: no symptoms reported Cardiovascular: no symptoms reported Gastrointestinal: nausea, vomiting Genitourinary: no symptoms reported Musculoskeletal: no symptoms reported Skin: no symptoms reported Psychiatric/Neurological: No Symptoms Reported Hematologic/Lymphatic: No Symptoms Reported Past Lacnibi-Ohcjhw-Mlmmvx Hx Patient Social History Alcohol Beverage of Choice: Wine Type Used: Cigarettes Former Smoker, Quit: Nov 10, 2017 2nd Hand Smoke Exposure: No Recent Hopitalizations: Yes Immunizations Up To Date Tetanus Booster (TDap): Unknown PED Vaccines UTD: No Date of Pneumonia Vaccine: Dec 12, 2013 Date of Influenza Vaccine: Sep 22, 2018 Seasonal Allergies Seasonal Allergies: Yes Past Medical History Surgeries: Yes Cardiac, Coronary Stent, Ear Surgery, Gallbladder, Orthopedic, Renal Respiratory: Yes (HX OF TOBACCO USE--1 PPD) Chronic Bronchitis, Sleep Apnea Currently Using CPAP: Yes (AT HOME) Currently Using BIPAP: No Cardiac: Yes (CARDIAC STENTS; DVT'S IN ARMS) Chronic Edema/Swelling, Coronary Artery Disease, Deep Vein Thrombosis, High Cholesterol, Hypertension Neurological: Yes (NEUROPATHY IN HANDS AND FEET) Headaches /Migraines, Neuropathy 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 Disorders: No 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 Disorders: Denies 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 Sexually Transmitted Disease: No HIV/AIDS: No Genitourinary: Yes Bladder Infection, Kidney Stones, Renal Failure Gastrointestinal: Yes Gastroesophageal Reflux, Diverticulosis, Hiatal Hernia, Irritable Bowel Musculoskeletal: Yes Degenerate Disk Disease, Fibromyalgia, Chronic Back Pain Endocrine: Yes Diabetes, Insulin dep HEENT: Yes (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; POOR DENTITION) Chronic Ear Infection Loss of Vision: Denies Hearing Impairment: Hard of Hearing Cancer: No Psychosocial: Yes Anxiety Integumentary: Yes Psoriasis Blood Disorders: No Adverse Reaction/Blood Tranf: No Family Medical History Cancer of mouth 19 FATHER ( of esophogeal cancer.) Cardiovascular disease 19 MOTHER G8 BROTHER Completed stroke 19 FATHER G8 BROTHER Diabetes mellitus G8 BROTHER FH: lung cancer 19 MOTHER Hypertension 19 FATHER Kidney disease 19 FATHER Myocardial infarction 19 MOTHER G8 BROTHER Respiratory disorder No Family History of: AIDS CAD Over 55 Years Old, CVA, Diabetes, GI Disease, Renal Disease Physical Exam Vital Signs Vital Signs - First Documented 12/24/18 14:40 Temp 97.6 Pulse 87 Resp 20 B/P (MAP) 177/99 (125) Pulse Ox 96 Capillary Refill : Height, Weight, BMI Height: 5'0.00" Weight: 140lbs. 6.0oz. [id number]; 26.8 BMI Method:Stated General Appearance: No Apparent Distress, WD/WN, Chronically ill Eyes: Bilateral Eye Normal Inspection, Bilateral Eye PERRL, Bilateral Eye EOMI HEENT: PERRL/EOMI Neck: Full Range of Motion, Normal Inspection Respiratory: No Accessory Muscle Use, No Respiratory Distress Cardiovascular: Regular Rate, Rhythm, Normal Peripheral Pulses Gastrointestinal: Normal Bowel Sounds, Non Tender, Soft Neurologic/Psychiatric: Alert, Oriented x3, No Motor/Sensory Deficits Skin: Normal Color, Warm/Dry Progress/Results/Core Measures Suspected Sepsis SIRS Temperature: Pulse: Respiratory Rate: Laboratory Tests 12/24/18 14:40: White Blood Count 10.9 Blood Pressure / Mean: Laboratory Tests 12/24/18 14:40: Creatinine 1.23, Platelet Count 274, Total Bilirubin 0.6 12/24/18 16:34: Creatinine 1.04 Results/Orders Lab Results Laboratory Tests Test 12/24/18 14:40 12/24/18 14:52 12/24/18 15:08 12/24/18 15:46 Range/Units White Blood Count 10.9 4.3-11.0 10^3/uL Red Blood Count 4.32 L 4.35-5.85 10^6/uL Hemoglobin 12.8 11.5-16.0 G/DL Hematocrit 37 35-52 % Mean Corpuscular Volume 86 80-99 FL Mean Corpuscular Hemoglobin 30 25-34 PG Mean Corpuscular Hemoglobin Concent 35 32-36 G/DL Red Cell Distribution Width 13.0 10.0-14.5 % Platelet Count 274 130-400 10^3/uL Mean Platelet Volume 10.8 H 7.4-10.4 FL Neutrophils (%) (Auto) 76 H 42-75 % Lymphocytes (%) (Auto) 19 12-44 % Monocytes (%) (Auto) 3 0-12 % Eosinophils (%) (Auto) 1 0-10 % Basophils (%) (Auto) 1 0-10 % Neutrophils # (Auto) 8.3 H 1.8-7.8 X 10^3 Lymphocytes # (Auto) 2.1 1.0-4.0 X 10^3 Monocytes # (Auto) 0.3 0.0-1.0 X 10^3 Eosinophils # (Auto) 0.1 0.0-0.3 10^3/uL Basophils # (Auto) 0.1 0.0-0.1 10^3/uL Sodium Level 127 L 135-145 MMOL/L Potassium Level 4.3 3.6-5.0 MMOL/L Chloride Level 94 L 98-107 MMOL/L Carbon Dioxide Level 19 L 21-32 MMOL/L Anion Gap 14 5-14 MMOL/L Blood Urea Nitrogen 15 7-18 MG/DL Creatinine 1.23 0.60-1.30 MG/DL Estimat Glomerular Filtration Rate 45 BUN/Creatinine Ratio 12 Glucose Level 756 *H 70-105 MG/DL Glucometer > 600 *H 575 *H 70-110 MG/DL Calcium Level 9.1 8.5-10.1 MG/DL Corrected Calcium 9.1 8.5-10.1 MG/DL Total Bilirubin 0.6 0.1-1.0 MG/DL Aspartate Amino Transf (AST/SGOT) 13 5-34 U/L Alanine Aminotransferase (ALT/SGPT) 11 0-55 U/L Alkaline Phosphatase 91 40-136 U/L Total Protein 7.2 6.4-8.2 GM/DL Albumin 4.0 3.2-4.5 GM/DL Lipase 23 8-78 U/L Beta-Hydroxybutyrate (Chem panel) 1.98 H 0.00-0.27 MMOL/L Urine Color YELLOW Urine Clarity CLEAR Urine pH 5 5-9 Urine Specific [place] 1.010 L 1.016-1.022 Urine Protein 2+ H NEGATIVE Urine Glucose (UA) 4+ H NEGATIVE Urine Ketones 1+ H NEGATIVE Urine Nitrite NEGATIVE NEGATIVE Urine Bilirubin NEGATIVE NEGATIVE Urine Urobilinogen NORMAL NORMAL MG/DL Urine Leukocyte Esterase NEGATIVE NEGATIVE Urine RBC (Auto) NEGATIVE NEGATIVE Urine RBC NONE /HPF Urine WBC RARE /HPF Urine Squamous Epithelial Cells RARE /HPF Urine Crystals NONE /LPF Urine Bacteria NEGATIVE /HPF Urine Casts NONE /LPF Urine Mucus NEGATIVE /LPF Urine Culture Indicated NO Urine Opiates Screen NEGATIVE NEGATIVE Urine Oxycodone Screen NEGATIVE NEGATIVE Urine Methadone Screen NEGATIVE NEGATIVE Urine Propoxyphene Screen NEGATIVE NEGATIVE Urine Barbiturates Screen POSITIVE H NEGATIVE Ur Tricyclic Antidepressants Screen NEGATIVE NEGATIVE Urine Phencyclidine Screen NEGATIVE NEGATIVE Urine Amphetamines Screen NEGATIVE NEGATIVE Urine Methamphetamines Screen NEGATIVE NEGATIVE Urine Benzodiazepines Screen NEGATIVE NEGATIVE Urine Cocaine Screen NEGATIVE NEGATIVE Urine Cannabinoids Screen NEGATIVE NEGATIVE Blood Gas Puncture Site LT RADIAL Blood Gas Patient Temperature 97.6 Arterial Blood pH 7.35 L 7.37-7.43 Arterial Blood Partial Pressure CO2 39 35-45 MMHG Arterial Blood Partial Pressure O2 38 *L 79-93 MMHG Arterial Blood HCO3 21 L 23-27 MMOL/L Arterial Blood Total CO2 22.5 21.0-31.0 MMOL/L Arterial Blood Oxygen Saturation 72 L 94-100 % Arterial Blood Base Excess -3.6 L -2.5-2.5 MMOL/L Antonio Test YES-POS Blood Gas Ventilator Setting NO Blood Gas Inspired Oxygen ROOM AIR Test 12/24/18 16:34 12/24/18 16:51 Range/Units Sodium Level 134 L 135-145 MMOL/L Potassium Level 3.5 L 3.6-5.0 MMOL/L Chloride Level 104 98-107 MMOL/L Carbon Dioxide Level 17 L 21-32 MMOL/L Anion Gap 13 5-14 MMOL/L Blood Urea Nitrogen 14 7-18 MG/DL Creatinine 1.04 0.60-1.30 MG/DL Estimat Glomerular Filtration Rate 54 BUN/Creatinine Ratio 13 Glucose Level 445 *H 70-105 MG/DL Calcium Level 8.6 8.5-10.1 MG/DL Beta-Hydroxybutyrate (Chem panel) 0.12 0.00-0.27 MMOL/L Glucometer 460 *H 70-110 MG/DL My Orders Orders - JR MARIE APRN Lipase (12/24/18 14:43) Diphenhydramine Injection (Benadryl Inje (12/24/18 15:00) Diphenhydramine Injection (Benadryl Inje (12/24/18 14:51) Arterial Blood Gas (12/24/18 14:45) Insulin Determir (Per Unit) (Levemir (Pe (12/24/18 15:45) Accucheck Stat ONCE (12/24/18 15:43) Promethazine Injection (Phenergan Injec (12/24/18 16:45) Drug Screen Stat (Urine) (12/24/18 16:44) Basic Metabolic Panel (12/24/18 16:34) Beta Hydroxybutyrate (12/24/18 16:34) Medications Given in ED Current Medications Medications Dose Ordered Sig/Jackie Route Start Time Stop Time Status Last Admin Dose Admin Diphenhydramine HCl 25 mg ONCE ONCE IVP 12/24/18 15:00 12/24/18 15:01 DC 12/24/18 14:57 25 MG Insulin Detemir 20 unit ONCE ONCE SQ 12/24/18 15:45 12/24/18 15:46 DC 12/24/18 15:52 20 UNIT Insulin Human Regular 10 unit ONCE ONCE IV 12/24/18 14:45 12/24/18 14:46 DC 12/24/18 14:57 10 UNIT Promethazine HCl 12.5 mg ONCE ONCE IVP 12/24/18 16:45 12/24/18 16:46 DC 12/24/18 16:44 12.5 MG Vital Signs/I&O 12/24/18 14:40 Temp 97.6 Pulse 87 Resp 20 B/P (MAP) 177/99 (125) Pulse Ox 96 Capillary Refill : Departure Communication (Admissions) Stable at this time. Patient was upset with RN for giving the Benadryl in the IV fluids instead of giving us an IV push. She states "it never works that way" . Also was upset that she had an arterial blood gas drawn. She has received 1 L of IV fluids from EMS and is receiving her second liter of fluids currently. Impression Primary Impression: mild diabetic ketoacidosis Disposition: HOME, SELF-CARE Condition: Stable Departure-Patient Inst. Decision time for Depature: 17:35 Referrals: [facility] (PCP/Family) Primary Care Physician Patient Instructions: Hyperglycemia, Adult Add. Discharge Instructions: 1. Check your blood sugars at least 4 times a day. Take your insulin as directed. Follow-up with your doctor on Wednesday. All discharge instructions reviewed with patient and/or family. Voiced understanding. JR MARIE APRN Dec 24, 2018 14:43
[2018-12-24] MEDS ORDERED: inSUlin (REGULAR) HUMAN 1 UNIT/0.01 ML (CHARGE PER UNIT) IV ONE (14:45)
[2018-12-24] MEDS ORDERED: inSUlin REGULAR TPN/DRIP ONLY 250 UNITS in NORMAL SALINE 250 ML IV SCH (14:45)
[2018-12-24] MEDS ORDERED: NS IV 1000 ML 1,000 ML IV SCH (14:45)
[2018-12-24] MEDS ORDERED: diphenhydrAMINE 50 MG/ML INJ (BENADRYL) ONE (14:51)
[2018-12-24 14:52] LABS: BASOPHILS # (AUTO) 0.1 10^3/uL (0.0-0.1); BASOPHILS % (AUTO) 1 % (0-10); EOSINOPHILS # (AUTO) 0.1 10^3/uL (0.0-0.3); EOSINOPHILS % (AUTO) 1 % (0-10); HEMATOCRIT 37 % (35-52); HEMOGLOBIN 12.8 G/DL (11.5-16.0); LYMPHOCYTES # (AUTO) 2.1 X 10^3 (1.0-4.0); LYMPHOCYTES % (AUTO) 19 % (12-44); MEAN CORPUSCULAR HEMOGLOBIN 30 PG (25-34); MEAN CORPUSCULAR HGB CONC 35 G/DL (32-36); MEAN CORPUSCULAR VOLUME 86 FL (80-99); MEAN PLATELET VOLUME 10.8 FL (7.4-10.4); MONOCYTES # (AUTO) 0.3 X 10^3 (0.0-1.0); MONOCYTES % (AUTO) 3 % (0-12); NEUTROPHILS # (AUTO) 8.3 X 10^3 (1.8-7.8); NEUTROPHILS % (AUTO) 76 % (42-75); PLATELET COUNT 274 10^3/uL (130-400); WHITE BLOOD COUNT 10.9 10^3/uL (4.3-11.0)
[2018-12-24 15:00] LABS: BILIRUBIN,URINE NEGATIVE (NEGATIVE); CLARITY,URINE CLEAR; COLOR,URINE YELLOW; GLUCOSE, URINE (UA) 4+ (NEGATIVE); KETONES,URINE 1+ (NEGATIVE); LEUKOCYTE ESTERASE ,URINE NEGATIVE (NEGATIVE); NITRITE,URINE NEGATIVE (NEGATIVE); PH,URINE 5 (5-9); PROTEIN,URINE 2+ (NEGATIVE); UROBILINOGEN,URINE NORMAL (NORMAL)
[2018-12-24] MEDS ORDERED: diphenhydrAMINE 50 MG/ML INJ (BENADRYL) IVP ONE (15:00)
[2018-12-24 15:06] LABS: BACTERIA,URINE NEGATIVE /HPF; SQUAMOUS EPITHELIAL CELL,UR RARE /HPF; WBC,URINE RARE /HPF
[2018-12-24 15:10] LABS: BILIRUBIN,TOTAL 0.6 MG/DL (0.1-1.0); CALCIUM 9.1 MG/DL (8.5-10.1); CREATININE SERUM 1.23 MG/DL (0.60-1.30); POTASSIUM 4.3 MMOL/L (3.6-5.0); TOTAL PROTEIN 7.2 GM/DL (6.4-8.2)
[2018-12-24 15:16] LABS: ABG BASE EXCESS -3.6 MMOL/L (-2.5-2.5); ABG OXYGEN SATURATION 72 % (94-100); ABG PCO2 39 MMHG (35-45); ABG PH 7.35 (7.37-7.43); ABG PO2 38 MMHG (79-93); ABG TCO2 22.5 MMOL/L (21.0-31.0)
[2018-12-24 15:17] LABS: ALLENS TEST YES-POS; INSPIRED O2 ROOM AIR; PATIENT TEMP 97.6; VENTILATOR NO
[2018-12-24] MEDS ORDERED: inSUlin DETERMIR 1 UNIT/0.01 ML (LEVEMIR) CHARGE PER UNIT SQ ONE (15:45)
[2018-12-24] MEDS ORDERED: PROMETHAZINE INJ 25 MG/ML (PHENERGAN) AMP IVP ONE (16:45)
[2018-12-24 17:05] LABS: AMPHETAMINE SCREEN, URINE NEGATIVE (NEGATIVE); BARBITURATE SCREEN URINE POSITIVE (NEGATIVE); BENZODIAZEPINES SCREEN URINE NEGATIVE (NEGATIVE); CANNABINOID SCREEN, URINE NEGATIVE (NEGATIVE); COCAINE SCREEN URINE NEGATIVE (NEGATIVE); METHADONE STAT NEGATIVE (NEGATIVE); METHAMPHETAMINE SCREEN URINE S NEGATIVE (NEGATIVE); OPIATE SCREEN URINE NEGATIVE (NEGATIVE); OXYCODONE STAT NEGATIVE (NEGATIVE); PROPOXYPHENE STAT NEGATIVE (NEGATIVE); TRICYCLIC ANTIDEPRESSANTS SCRE NEGATIVE (NEGATIVE)
[2018-12-24 17:13] LABS: CALCIUM 8.6 MG/DL (8.5-10.1); CREATININE SERUM 1.04 MG/DL (0.60-1.30); POTASSIUM 3.5 MMOL/L (3.6-5.0)
[2018-12-24 17:59] VITALS: BP 148/90
== END 2018-12-24 17:59 | disposition home or self-care (01) ==
LOC: EDUNIT# 14:37 → ER 14:38
DX: E11.10 Type 2 diabetes mellitus with ketoacidosis without coma (principal); G47.30 Sleep apnea, unspecified; I25.10 Atherosclerotic heart disease of native coronary artery without angina pectoris; I10 Essential (primary) hypertension; E11.40 Type 2 diabetes mellitus with diabetic neuropathy, unspecified; F41.9 Anxiety disorder, unspecified; K21.9 Gastro-esophageal reflux disease without esophagitis; G43.909 Migraine, unspecified, not intractable, without status migrainosus; K58.9 Irritable bowel syndrome, unspecified; E78.00 Pure hypercholesterolemia, unspecified; Z87.19 Personal history of other diseases of the digestive system; Z82.49 Family history of ischemic heart disease and other diseases of the circulatory system; Z80.1 Family history of malignant neoplasm of trachea, bronchus and lung; Z86.718 Personal history of other venous thrombosis and embolism; Z87.448 Personal history of other diseases of urinary system; Z87.442 Personal history of urinary calculi; Z87.09 Personal history of other diseases of the respiratory system; Z88.4 Allergy status to anesthetic agent; Z91.040 Latex allergy status; Z88.8 Allergy status to other drugs, medicaments and biological substances; Z79.82 Long term (current) use of aspirin; Z79.4 Long term (current) use of insulin; Z87.891 Personal history of nicotine dependence; Z98.890 Other specified postprocedural states; Z95.5 Presence of coronary angioplasty implant and graft
CPT/HCPCS: 36415; 80048; 80053; 80306; 81000; 82010; 82805; 82962; 83690; 85025; 99283

== ENCOUNTER 2018-12-31 15:00 | Emergency (ER) | payer MEDICARE ==
[~2018-12-31] VITALS: Ht 157.5 cm; Wt 65.9 kg
--- NOTE | 2018-12-31 16:20 | NUR ---
unable to give urine sample
--- NOTE | 2018-12-31 16:35 | ED Fall/Injury ---
General Chief Complaint: Trauma-Non Activation Stated Complaint: FALL Nursing Triage Note: fell yesterday when sitting on walker- fell on tailbone Source: patient Exam Limitations: no limitations History of Present Illness Date Seen by Provider: Dec 31, 2018 Time Seen by Provider: 16:30 Initial Comments To ER per private vehicle with reports of a fall that occurred yesterday. She was sitting on the edge of her walker when she slipped and fell down onto the floor landing on her buttock. She noticed some orange discoloration to her urine just prior to arrival, thinks something may have "punctured something". Does not have any flank or even lumbar spine pain, all of her pain is coccygeal. Location Injury Occurred: home Occurred: yesterday Severity: moderate Injuries/Pain Location: other (buttocks) Context: slipped, other Loss of Consciousness: no loss of consciousness Allergies and Home Medications Allergies Coded Allergies: ketorolac (Verified Allergy, Severe, ANAPHYLAXIS, PT TAKES ASA AT HOME, 11/23/18) ondansetron (Verified Allergy, Intermediate, RASH, 11/23/18) RASH/ HIVES exenatide (Verified Allergy, Unknown, NAUSEA, 11/23/18) NON STOP VOMITING latex (Verified Allergy, Unknown, RASH, 11/23/18) metoclopramide (Verified Allergy, Unknown, RESTLESS LEGS, 11/23/18) Home Medications Amlodipine Besylate 10 Mg Tablet, 10 MG PO DAILY, (Reported) LAST FILLED #21 AUG 2018 Aspirin 81 Mg Tablet.dr, 81 MG PO DAILY, (Reported) Atorvastatin Calcium 40 Mg Tablet, 40 MG PO HS, (Reported) LAST FILLED #10-11-18 Gabapentin 800 Mg Tablet, 1,600 MG PO HS, (Reported) TAKES 2 (800MG) TABLETS Gabapentin 800 Mg Tablet, 800 MG PO DAILY PRN for NERVE PAIN, (Reported) Insulin Detemir 100 Unit/1 Ml Insuln.pen, 30 UNIT SQ DAILY, (Reported) LAST FILLED AUGUST 2018 Insulin Lispro 100 Unit/1 Ml Insuln.pen, SQ TIDAC, (Reported) LAST FILLED MARCH 2018 Linagliptin 5 Mg Tablet, 5 MG PO DAILY, (Reported) Melatonin 5 Mg Capsule, 5 MG PO HS PRN for SLEEP, (Reported) Mirtazapine 15 Mg Tablet, 15 MG PO HS, (Reported) Omeprazole 20 Mg Capsule.dr, 20 MG PO DAILY, (Reported) Oxycodone HCl 10 Mg Tablet, 10 MG PO DAILY, (Reported) Oxycodone HCl/Acetaminophen 1 Each Tablet, 1 TAB PO Q4H PRN for PAIN-MODERATE, ( Reported) Patient Home Medication List Home Medication List Reviewed: Yes Review of Systems Review of Systems Constitutional: see HPI Eyes: No Symptoms Reported Ears, Nose, Mouth, Throat: no symptoms reported Respiratory: no symptoms reported Cardiovascular: no symptoms reported Genitourinary: no symptoms reported Musculoskeletal: see HPI, back pain Skin: no symptoms reported Psychiatric/Neurological: No Symptoms Reported Past Idzfopv-Rvkpyd-Vpnwhq Hx Patient Social History Alcohol Use: Denies Use Number of Drinks Today: Alcohol Beverage of Choice: Wine Recreational Drug Use: No Smoking Status: Current Everyday Smoker Type Used: Cigarettes Former Smoker, Quit: Nov 10, 2017 2nd Hand Smoke Exposure: No Recent Foreign Travel: No Contact w/Someone Who Travel: No Recent Infectious Disease Expo: No Recent Hopitalizations: No Physical Abuse: No Sexual Abuse: No Mistreated: No Fear: No Immunizations Up To Date Tetanus Booster (TDap): Unknown PED Vaccines UTD: No Date of Pneumonia Vaccine: Dec 12, 2013 Date of Influenza Vaccine: Sep 22, 2018 Seasonal Allergies Seasonal Allergies: Yes Past Medical History Surgeries: Yes Cardiac, Coronary Stent, Ear Surgery, Gallbladder, Orthopedic, Renal Respiratory: Yes (HX OF TOBACCO USE--1 PPD) Chronic Bronchitis, Sleep Apnea Currently Using CPAP: Yes (AT HOME) Currently Using BIPAP: No Cardiac: Yes (CARDIAC STENTS; DVT'S IN ARMS) Chronic Edema/Swelling, Coronary Artery Disease, Deep Vein Thrombosis, High Cholesterol, Hypertension Neurological: Yes (NEUROPATHY IN HANDS AND FEET) Headaches /Migraines, Neuropathy 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 Disorders: No 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 Disorders: Denies 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 Sexually Transmitted Disease: No HIV/AIDS: No Genitourinary: Yes Bladder Infection, Kidney Stones, Renal Failure Gastrointestinal: Yes Gastroesophageal Reflux, Diverticulosis, Hiatal Hernia, Irritable Bowel Musculoskeletal: Yes Degenerate Disk Disease, Fibromyalgia, Chronic Back Pain Endocrine: Yes Diabetes, Insulin dep HEENT: Yes (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; POOR DENTITION) Chronic Ear Infection Loss of Vision: Denies Hearing Impairment: Hard of Hearing Cancer: No Psychosocial: Yes Anxiety Integumentary: Yes Psoriasis Blood Disorders: No Adverse Reaction/Blood Tranf: No Family Medical History Cancer of mouth 19 FATHER ( of esophogeal cancer.) Cardiovascular disease 19 MOTHER G8 BROTHER Completed stroke 19 FATHER G8 BROTHER Diabetes mellitus G8 BROTHER FH: lung cancer 19 MOTHER Hypertension 19 FATHER Kidney disease 19 FATHER Myocardial infarction 19 MOTHER G8 BROTHER Respiratory disorder No Family History of: AIDS CAD Over 55 Years Old, CVA, Diabetes, GI Disease, Renal Disease Physical Exam Vital Signs Vital Signs - First Documented 12/31/18 16:03 Temp 97.8 Pulse 88 Resp 18 B/P (MAP) 96/46 (63) Pulse Ox 95 Capillary Refill : Less Than 3 Seconds Height, Weight, BMI Height: 5'2.00" Weight: 145lbs. 6.0oz. 65.853425jw; 26.8 BMI Method:Estimated General Appearance: WD/WN, no apparent distress HEENT: PERRL/EOMI, normal ENT inspection Respiratory: no respiratory distress, no accessory muscle use Gastrointestinal: normal bowel sounds, non tender, soft Back: normal inspection Extremities: normal range of motion, non-tender Neurologic/Psychiatric: alert, normal mood/affect, oriented x 3 Skin: normal color, warm/dry Hugh Coma Score Best Eye Response: (4) Open Spontaneously Best Verbal Response: (5) Oriented Best Motor Response: (6) Obeys Commands Hugh Total: 15 Progress/Results/Core Measures Results/Orders My Orders Orders - JR MARIE APRN Ct Lumbar Spine Wo (12/31/18 16:15) Ct Pelvis Wo (12/31/18 16:15) Vital Signs/I&O 12/31/18 16:03 Temp 97.8 Pulse 88 Resp 18 B/P (MAP) 96/46 (63) Pulse Ox 95 Blood Pressure Mean: 63 Departure Impression Primary Impression: Coccyx contusion Qualified Codes: S30.0XXA - Contusion of lower back and pelvis, initial encounter Disposition: 01 HOME, SELF-CARE Condition: Stable Departure-Patient Inst. Decision time for Depature: 16:34 Referrals: [facility] (PCP/Family) Primary Care Physician Patient Instructions: Contusion (DC) Add. Discharge Instructions: All discharge instructions reviewed with patient and/or family. Voiced understanding. JR MARIE APRN Dec 31, 2018 16:34
--- NOTE | 2018-12-31 16:58 | Diagnostic Imaging Report ---
PROCEDURE: CT lumbar spine without contrast. TECHNIQUE: Multiple contiguous axial images were obtained through the lumbar spine without the use of intravenous contrast. Sagittal and coronal reformations were then performed. INDICATION: Fall and back pain. FINDINGS: Postop changes of posterior instrumented fusion is noted with vertical stabilization rods and bipedicular screws transfixing the L3-S1 levels. The orthopedic hardware appears to be intact. No fracture or loosening is detected. Vertebral body heights are maintained. No acute bony abnormality is seen. No fractures are identified. There is minimal anterolisthesis of L3 on L4 with retrolisthesis of L1 on L2. Paraspinous tissues are unremarkable. IMPRESSION: Postop changes of posterior instrumented fusion, L3-S1. No complicating features are identified. No acute bony abnormality is detected. Dictated by: Dictated on workstation # [id number]
--- NOTE | 2018-12-31 17:00 | Diagnostic Imaging Report ---
PROCEDURE: CT pelvis without contrast. TECHNIQUE: Multiple contiguous axial images were obtained through the pelvis without the use of intravenous contrast. Sagittal and coronal reformations were performed. INDICATION: Injury with pain. FINDINGS: Extensive postsurgical changes to the lower lumbar spine are present. The sacrococcygeal curvature and alignment are unremarkable. No fracture. No presacral hematoma. Superior and inferior pubic linda intact. The femoral head is directed into the acetabula. No acute abnormality. IMPRESSION: No pelvic fracture identified. Dictated by: Dictated on workstation # [id number]
[2018-12-31 17:31] VITALS: BP 96/46
== END 2018-12-31 17:31 | disposition home or self-care (01) ==
LOC: EDUNIT# 15:00 → ER 15:01
DX: S30.0XXA Contusion of lower back and pelvis, initial encounter (principal); G47.30 Sleep apnea, unspecified; I25.10 Atherosclerotic heart disease of native coronary artery without angina pectoris; G43.909 Migraine, unspecified, not intractable, without status migrainosus; E78.00 Pure hypercholesterolemia, unspecified; E11.40 Type 2 diabetes mellitus with diabetic neuropathy, unspecified; F41.9 Anxiety disorder, unspecified; K21.9 Gastro-esophageal reflux disease without esophagitis; K58.9 Irritable bowel syndrome, unspecified; R40.2142 Coma scale, eyes open, spontaneous, at arrival to emergency department; R40.2252 Coma scale, best verbal response, oriented, at arrival to emergency department; R40.2362 Coma scale, best motor response, obeys commands, at arrival to emergency department; I10 Essential (primary) hypertension; Z86.718 Personal history of other venous thrombosis and embolism; Z87.19 Personal history of other diseases of the digestive system; Z87.448 Personal history of other diseases of urinary system; Z87.442 Personal history of urinary calculi; Z80.0 Family history of malignant neoplasm of digestive organs; Z80.1 Family history of malignant neoplasm of trachea, bronchus and lung; Z82.49 Family history of ischemic heart disease and other diseases of the circulatory system; Z87.09 Personal history of other diseases of the respiratory system; Z88.4 Allergy status to anesthetic agent; Z88.8 Allergy status to other drugs, medicaments and biological substances; Z79.82 Long term (current) use of aspirin; Z79.4 Long term (current) use of insulin; Z87.891 Personal history of nicotine dependence; Z95.5 Presence of coronary angioplasty implant and graft; Z98.890 Other specified postprocedural states; Z91.040 Latex allergy status; W01.0XXA Fall on same level from slipping, tripping and stumbling without subsequent striking against object, initial encounter
CPT/HCPCS: 72131; 72192

== ENCOUNTER 2019-01-18 19:09 | Observation (INO) | payer MEDICARE ==
[~2019-01-18] VITALS: Ht 152.4 cm; Wt 62.3 kg
[2019-01-18] MEDS ORDERED: LACTATED RINGERS 1,000 ML IV ONE (19:16)
[2019-01-18] MEDS ORDERED: PANTOPRAZOLE 40 MG (PROTONIX) VIAL IV STA (19:16)
[2019-01-18] MEDS ORDERED: ACETAMINOPHEN 500 MG TAB (TYLENOL) PO ONE (19:30)
--- NOTE | 2019-01-18 19:32 | ED Chest Pain ---
General Chief Complaint: Chest Pain Stated Complaint: CHEST PAIN Source: patient, EMS, old records History of Present Illness Date Seen by Provider: Jan 18, 2019 Time Seen by Provider: 19:10 Initial Comments PT ARRIVES VIA EMS FROM HOME MULTITUDE OF COMPLAINTS C/O CHEST PAIN SINCE 1330 TODAY--WAS LAYING IN BED WHEN SYMPTOMS BEGAN PAIN IS ALL ACROSS CHEST AND RADIATES INTO JAW AND LEFT ARM PAIN IS MUCH WORSE WITH TAKING A DEEP BREATH DENIES ACTUAL SHORTNESS OF BREATH DENIES COUGH PT UNAWARE OF FEVER--TEMP IS 100.1 TYMPANIC ON ARRIVAL. PT DOES HAVE HISTORY OF CAD WITH STENT X 1 PT STATES SHE HAS HAD NAUSEA/VOMITING/DIARRHEA AND LOWER ABDOMINAL PAIN FOR A WEEK--HAS NOT SOUGHT CARE AND IS NO DIFFERENT TODAY STATES SHE HAS NOT TAKEN ANY OF HER MEDICATIONS SINCE Wednesday01/14/19 BECAUSE SHE CAN'T KEEP THEM DOWN PT VOMITED X 1 THIS AM WHEN SHE TRIED TO TAKE MEDICATIONS HAS NOT HAD ANYTHING TO EAT OR DRINK TODAY, OR FOR THE LAST WEEK HAS HAD DIARRHEA X 6 TODAY STATES SHE HAS PHENERGAN SUPPOSITORIES AT HOME BUT THEY WON'T STAY IN BECAUSE OF THE DIARRHEA PT STATES SHE HAS NOT URINATED TODAY HAS NOT SOUGHT CARE FOR THESE SYMPTOMS BEFORE TODAY EMS GAVE ASPIRIN AND NTG X 1--BP DOWN TO 121/76 AFTER NTG. PT CLAIMS NO RELIEF OF CHEST PAIN EMS ALSO GAVE PHENERGAN ( PT IS ALLERGIC TO [facility] ) PT WANTING PAIN MEDICATION AND BENADRYL ON ARRIVAL--PT DEMANDS THESE MEDS EACH TIME SHE COMES TO ER, ALONG WITH PHENERGAN. . PT WITH MULTITUDE OF VISITS FOR VARIOUS COMPLAINTS PT HAS HAD THESE SAME COMPLAINTS MULTIPLE TIMES--EXTENSIVE WORK UP'S HAVE BEEN DONE-LAST EGD 09/29/2018 SHOWED GERD, GASTRITIS/DUODENITIS, WITH POSSIBLE ESOPHAGEAL CANDIDIASIS. HAS ALSO BEEN DX WITH A SMALL HIATAL HERNIA AND DIVERTICULAR DISEASE WITHOUT ACUTE DIVERTICULITIS. PT HAS CHRONIC NAUSEA/VOMITING/DIARRHEA / ABDOMINAL PAIN --QUESTIONABLE NARCOTIC BOWEL ( PT IS LONG-TERM NARCOTIC DEPENDENT FOR CHRONIC GENERALIZED PAIN / BACK AND NECK PAIN) AND/OR DIABETIC GASTROPARESIS ?? THIS IS 4TH VISIT IN 2019--LAST VISIT 12/31/18 FOR COCCYX CONTUSION PT WITH LONG HISTORY OF EXTREME NON-COMPLIANCE IN ALL ASPECTS OF CARE. ON REVIEW OF PREVIOUS RECORDS, [facility] HAS OFFERED HER A MULTITUDE OF DIFFERENT TREATMENTS FOR THESE COMPLAINTS AND PT HAS REFUSED, AND PT HAS MISSED MULTIPLE VISITS WITH GI SPECIALIST. PT ONLY WANTS NARCOTIC PAIN MEDICATION, PHENERGAN AND BENADRYL. SEE OLD CHARTS FOR DETAILS Allergies and Home Medications Allergies Coded Allergies: ketorolac (Verified Allergy, Severe, ANAPHYLAXIS, PT TAKES ASA AT HOME, 11/23/18) ondansetron (Verified Allergy, Intermediate, RASH, 11/23/18) RASH/ HIVES exenatide (Verified Allergy, Unknown, NAUSEA, 11/23/18) NON STOP VOMITING latex (Verified Allergy, Unknown, RASH, 11/23/18) metoclopramide (Verified Allergy, Unknown, RESTLESS LEGS, 11/23/18) Home Medications Amlodipine Besylate 10 Mg Tablet, 10 MG PO DAILY, (Reported) LAST FILLED #21 AUG 2018 Aspirin 81 Mg Tablet.dr, 81 MG PO DAILY, (Reported) Atorvastatin Calcium 40 Mg Tablet, 40 MG PO HS, (Reported) LAST FILLED #30 10-11-18 Gabapentin 800 Mg Tablet, 1,600 MG PO HS, (Reported) TAKES 2 (800MG) TABLETS Gabapentin 800 Mg Tablet, 800 MG PO DAILY PRN for NERVE PAIN, (Reported) Insulin Detemir 100 Unit/1 Ml Insuln.pen, 30 UNIT SQ DAILY, (Reported) LAST FILLED AUGUST 2018 Insulin Lispro 100 Unit/1 Ml Insuln.pen, SQ TIDAC, (Reported) LAST FILLED MARCH 2018 Linagliptin 5 Mg Tablet, 5 MG PO DAILY, (Reported) Melatonin 5 Mg Capsule, 5 MG PO HS PRN for SLEEP, (Reported) Mirtazapine 15 Mg Tablet, 15 MG PO HS, (Reported) Omeprazole 20 Mg Capsule.dr, 20 MG PO DAILY, (Reported) Oxycodone HCl 10 Mg Tablet, 10 MG PO DAILY, (Reported) Oxycodone HCl/Acetaminophen 1 Each Tablet, 1 TAB PO Q4H PRN for PAIN-MODERATE, ( Reported) Patient Home Medication List Home Medication List Reviewed: Yes Review of Systems Review of Systems Constitutional: see HPI, fever, malaise EENTM: No Symptoms Reported Respiratory: No Symptoms Reported; Denies Cough, Denies Shortness of Air, Denies Wheezing Cardiovascular: See HPI, Chest Pain; Denies Edema, Denies Lightheadedness, Denies Palpitations, Denies Syncope Gastrointestinal: See HPI, Abdominal Pain, Diarrhea, Nausea, Poor Appetite, Poor Fluid Intake, Vomiting Genitourinary: See HPI Musculoskeletal: see HPI Skin: no symptoms reported Psychiatric/Neurological: No Symptoms Reported; Denies Headache, Denies Numbness, Denies Paresthesia Endocrine: No Symptoms Reported (HAS NOT CHECKED BLOOD GLUCOSE) Hematologic/Lymphatic: No Symptoms Reported Past Jodctux-Ldbxda-Uwrolo Hx Patient Social History Alcohol Use: Rarely Uses Alcohol Beverage of Choice: Wine Smoking Status: Former Smoker (1 PPD, REPORTEDLY QUIT 11/2017) Type Used: Cigarettes Former Smoker, Quit: Nov 10, 2017 2nd Hand Smoke Exposure: No Recent Foreign Travel: No Contact w/Someone Who Travel: No Recent Hopitalizations: No Immunizations Up To Date Tetanus Booster (TDap): Unknown PED Vaccines UTD: No Date of Pneumonia Vaccine: Dec 12, 2013 Date of Influenza Vaccine: Sep 22, 2018 Seasonal Allergies Seasonal Allergies: Yes Past Medical History Surgeries: Yes (C-SPINE X 1; LUMBAR SPINE X 4--LAMINECTOMY + FUSION; CARDIAC CATH X 3-STENT X 1; LAST CATH 03/10/16--NO INTERVENTION AT THAT TIME; PORT RIGHT CHEST; EGD/COLONOSCOPIES-HAD BOTH 05/2018; EGD 09/2018; RENAL/URETERAL STENT; BMT'S CHILD) Cardiac, Coronary Stent, Ear Surgery, Gallbladder, Orthopedic, Renal Respiratory: Yes (HX OF TOBACCO USE--1 PPD, REPORTEDLY QUIT 11/2017) Chronic Bronchitis, Sleep Apnea Currently Using CPAP: Yes (AT HOME) Currently Using BIPAP: No Cardiac: Yes (CARDIAC STENTX 1; DVT'S IN ARMS) Chronic Edema/Swelling, Coronary Artery Disease, Deep Vein Thrombosis, High Cholesterol, Hypertension Neurological: Yes (NEUROPATHY IN HANDS AND FEET) Headaches /Migraines, Neuropathy 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 Disorders: No 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 Disorders: Denies 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 POSSIBLE NARCOTIC BOWEL AND/OR DIABETIC GASTROPARESIS ??) Gastroesophageal Reflux, Diverticulosis, Esophagitis, Hiatal Hernia, Irritable Bowel Musculoskeletal: Yes (CHRONIC NECK AND BACK PAIN ; PSORIATIC ARTHRITIS; CHRONIC GENERALIZED PAIN-NARCOTIC DEPENDENT) Degenerate Disk Disease, Fibromyalgia, Chronic Back Pain Endocrine: Yes (EXTREMELY NON-COMPLIANT WITH MULTIPLE EPISODES OF DKA/ UNCONTROLLED DIABETES--EASILY CONTROLLED ON ADMISSION WITH INSULIN. ) Diabetes, Insulin dep HEENT: Yes (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; POOR DENTITION) Chronic Ear Infection Loss of Vision: Denies Hearing Impairment: Hard of Hearing Cancer: No Psychosocial: Yes Anxiety Integumentary: Yes Psoriasis Blood Disorders: No Adverse Reaction/Blood Tranf: No Family Medical History Cancer of mouth 19 FATHER ( of esophogeal cancer.) Cardiovascular disease 19 MOTHER G8 BROTHER Completed stroke 19 FATHER G8 BROTHER Diabetes mellitus G8 BROTHER FH: lung cancer 19 MOTHER Hypertension 19 FATHER Kidney disease 19 FATHER Myocardial infarction 19 MOTHER G8 BROTHER Respiratory disorder No Family History of: AIDS CAD Over 55 Years Old, CVA, Diabetes, GI Disease, Renal Disease Physical Exam Vital Signs Vital Signs - First Documented Capillary Refill : Height, Weight, BMI Height: 5'2.00" Weight: 145lbs. 6.0oz. 65.796660am; 26.8 BMI Method:Estimated General Appearance: No Apparent Distress, WD/WN, Other (VERY DRAMATIC, WAILING , MOANING, THRASHING ALL OVER) HEENT: Other (POOR DENTITION, ORAL MUCOSA IS MOIST) Neck: Normal Inspection Respiratory: Normal Breath Sounds, No Accessory Muscle Use, No Respiratory Distress, Other (DIFFUSE CHEST TENDERNESS--MARKEDLY EXAGGERATED PAIN RESPONSE) Cardiovascular: Regular Rate, Rhythm, No Edema, No JVD, No Murmur, Normal Peripheral Pulses Gastrointestinal: Normal Bowel Sounds, No Organomegaly, No Pulsatile Mass, Soft , Tenderness (DIFFUSE LOWER ABDOMINAL TENDERNESS-MARKEDLY EXAGGERATED PAIN RESPONSE--WAILS AND FLINCHES EVEN BEFORE SHE IS TOUCHED. 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 Norm as Tested Skin: Normal Color, Warm/Dry; No Rash Focused Exam Lactate Level 01/18/19 19:18: Lactic Acid Level 1.16 Lactic Acid Level Laboratory Tests Test 01/18/19 19:18 Lactic Acid Level 1.16 MMOL/L (0.50-2.00) Progress/Results/Core Measures Results/Orders Lab Results Laboratory Tests Test 01/18/19 19:18 01/18/19 19:45 Range/Units White Blood Count 11.3 H 4.3-11.0 10^3/uL Red Blood Count 4.33 L 4.35-5.85 10^6/uL Hemoglobin 12.8 11.5-16.0 G/DL Hematocrit 38 35-52 % Mean Corpuscular Volume 87 80-99 FL Mean Corpuscular Hemoglobin 30 25-34 PG Mean Corpuscular Hemoglobin Concent 34 32-36 G/DL Red Cell Distribution Width 13.7 10.0-14.5 % Platelet Count 299 130-400 10^3/uL Mean Platelet Volume 10.7 H 7.4-10.4 FL Neutrophils (%) (Auto) 64 42-75 % Lymphocytes (%) (Auto) 30 12-44 % Monocytes (%) (Auto) 4 0-12 % Eosinophils (%) (Auto) 2 0-10 % Basophils (%) (Auto) 1 0-10 % Neutrophils # (Auto) 7.3 1.8-7.8 X 10^3 Lymphocytes # (Auto) 3.4 1.0-4.0 X 10^3 Monocytes # (Auto) 0.4 0.0-1.0 X 10^3 Eosinophils # (Auto) 0.2 0.0-0.3 10^3/uL Basophils # (Auto) 0.1 0.0-0.1 10^3/uL Prothrombin Time 13.8 12.2-14.7 SEC INR Comment 1.1 0.8-1.4 Activated Partial Thromboplast Time 22 L 24-35 SEC Sodium Level 135 135-145 MMOL/L Potassium Level 3.5 L 3.6-5.0 MMOL/L Chloride Level 104 98-107 MMOL/L Carbon Dioxide Level 19 L 21-32 MMOL/L Anion Gap 12 5-14 MMOL/L Blood Urea Nitrogen 13 7-18 MG/DL Creatinine 0.86 0.60-1.30 MG/DL Estimat Glomerular Filtration Rate > 60 BUN/Creatinine Ratio 15 Glucose Level 407 *H 70-105 MG/DL Lactic Acid Level 1.16 0.50-2.00 MMOL/L Calcium Level 9.1 8.5-10.1 MG/DL Corrected Calcium 9.3 8.5-10.1 MG/DL Magnesium Level 1.5 L 1.8-2.4 MG/DL Total Bilirubin 0.4 0.1-1.0 MG/DL Aspartate Amino Transf (AST/SGOT) 16 5-34 U/L Alanine Aminotransferase (ALT/SGPT) 11 0-55 U/L Alkaline Phosphatase 85 40-136 U/L Total Creatine Kinase 18 L 29-168 U/L Creatine Kinase MB 1.0 <6.6 NG/ML Troponin I < 0.028 <0.028 NG/ML B-Type Natriuretic Peptide 39.0 <100.0 PG/ML Total Protein 6.5 6.4-8.2 GM/DL Albumin 3.7 3.2-4.5 GM/DL Amylase Level 28 25-125 U/L Lipase 14 8-78 U/L Urine Color YELLOW Urine Clarity CLEAR Urine pH 6 5-9 Urine Specific [place] 1.020 1.016-1.022 Urine Protein 3+ H NEGATIVE Urine Glucose (UA) 4+ H NEGATIVE Urine Ketones NEGATIVE NEGATIVE Urine Nitrite NEGATIVE NEGATIVE Urine Bilirubin NEGATIVE NEGATIVE Urine Urobilinogen NORMAL NORMAL MG/DL Urine Leukocyte Esterase NEGATIVE NEGATIVE Urine RBC (Auto) NEGATIVE NEGATIVE Urine RBC RARE /HPF Urine WBC RARE /HPF Urine Crystals NONE /LPF Urine Bacteria NEGATIVE /HPF Urine Casts PRESENT /LPF Urine Hyaline Casts 2-5 H /LPF Urine Mucus NEGATIVE /LPF Urine Culture Indicated NO Urine Opiates Screen NEGATIVE NEGATIVE Urine Oxycodone Screen NEGATIVE NEGATIVE Urine Methadone Screen NEGATIVE NEGATIVE Urine Propoxyphene Screen NEGATIVE NEGATIVE Urine Barbiturates Screen NEGATIVE NEGATIVE Ur Tricyclic Antidepressants Screen NEGATIVE NEGATIVE Urine Phencyclidine Screen NEGATIVE NEGATIVE Urine Amphetamines Screen NEGATIVE NEGATIVE Urine Methamphetamines Screen NEGATIVE NEGATIVE Urine Benzodiazepines Screen NEGATIVE NEGATIVE Urine Cocaine Screen NEGATIVE NEGATIVE Urine Cannabinoids Screen NEGATIVE NEGATIVE Micro Results Microbiology 01/18/19 Influenza Types A,B Antigen (RACHELL) - Final, Complete My Orders Orders - PURA PIÑA DO Saline Lock/Iv-Start (01/18/19 19:16) Ekg Tracing (01/18/19 19:16) O2 (01/18/19 19:16) Monitor-Rhythm Ecg Trace Only (01/18/19 19:16) Amylase (01/18/19 19:16) BNP (01/18/19 19:16) Cbc With Automated Diff (01/18/19 19:16) Comprehensive Metabolic Panel (01/18/19 19:16) Creatine Kinase (01/18/19 19:16) Creatine Kinase Mb (01/18/19 19:16) Drug Screen Stat (Urine) (01/18/19 19:16) Lactic Acid Analyzer (01/18/19 19:16) Lipase (01/18/19 19:16) Magnesium (01/18/19 19:16) Protime With Inr (01/18/19 19:16) Partial Thromboplastin Time (01/18/19 19:16) Troponin I (01/18/19 19:16) Ua Culture If Indicated (01/18/19 19:16) Blood Culture (01/18/19 19:16) Influenza A And B Antigens (01/18/19 19:16) Chest 1 View, Ap/Pa Only (01/18/19 19:16) Saline Lock/Iv-Start (01/18/19 19:16) Lactated Ringers (Lr 1000 Ml Iv Solution (01/18/19 19:16) Acetaminophen Tablet (Tylenol Tablet) (01/18/19 19:30) Pantoprazole Injection (Protonix Injecti (01/18/19 19:16) Straight Cath For Spec.-Adult (01/18/19 19:47) Stool Culture (01/18/19 20:06) Fecal Wbc (01/18/19 20:06) C Difficile Ag + Toxin A/B. (01/18/19 20:06) Saline Lock/Iv-Start (01/18/19 20:07) Ns Iv 1000 Ml (Sodium Chloride 0.9%) (01/18/19 20:07) Insulin (Regular) Human (Humulin R (Per (01/18/19 20:15) Magnesium 1 Gm/100 Ml Ivpb (Magnesium Day (01/18/19 20:15) Hyoscyamine Sl Tablet (Levsin Sl Tablet) (01/18/19 20:15) Iohexol Injection (Omnipaque 350 Mg/Ml 1 (01/18/19 20:15) Contrast Received (Contrast Received) (01/18/19 20:15) Ns (Ivpb) (Sodium Chloride 0.9% Ivpb Bag (01/18/19 20:15) Methylprednisolone Sod Succ (Solu-Medrol (01/18/19 20:15) Diphenhydramine Injection (Benadryl Inje (01/18/19 20:15) Insulin (Regular) Human (Humulin R (Per (01/18/19 20:44) Ct Chest/Abdomen/Pelvis Wo (01/18/19 20:49) Medications Given in ED Current Medications Medications Dose Ordered Sig/Jackie Route Start Time Stop Time Status Last Admin Dose Admin Diphenhydramine HCl 50 mg ONCE ONCE IVP 01/18/19 20:15 01/18/19 20:16 DC 01/18/19 20:33 50 MG Hyoscyamine Sulfate 0.25 mg ONCE ONCE PO 01/18/19 20:15 01/18/19 20:16 DC 01/18/19 20:32 0.25 MG Insulin Human Regular 1 unit STK-MED ONCE .ROUTE 01/18/19 20:44 01/18/19 20:46 DC 01/18/19 20:54 1 UNIT Lactated Ringer's 1,000 ml @ 0 mls/hr Q0M ONCE IV 01/18/19 19:16 01/18/19 19:21 DC 01/18/19 19:37 999 MLS/HR Sodium Chloride 1,000 ml @ 0 mls/hr Q0M ONCE IV 01/18/19 20:07 01/18/19 20:14 DC 01/18/19 20:54 999 MLS/HR Vital Signs/I&O 01/18/19 01/18/19 01/18/19 19:13 19:13 21:08 Temp 100.1 Pulse 93 93 Resp 19 19 B/P (MAP) 139/92 (108) O2 Delivery Room Air Room Air Progress Progress Note : Progress Note PT WITH MULTITUDE OF DEMANDS ON ARRIVAL AND CONTINUED TO BE VERY DEMANDING THROUGHOUT ER STAY--CONSTANTLY PUSHING CALL LIGHT -LITERALLY EVERY 5 MINUTES OR LESS, THROUGHOUT ER STAY. PT VERY DRAMATIC, WITH ESCALATING BEHAVIOR--YELLING, "SOBBING" --NO TEARS, FLAILING ALL OVER, WANTING "SOMETHING STRONG FOR THE PAIN" --AND HER COMPLAINTS CONTINUED TO CHANGE THROUGHOUT ER STAY, SOON ONE COMPLAINT WAS ADDRESSED, THEN SHE WOULD SUDDENLY HAVE A NEW COMPLAINT PT REFUSED TYLENOL FOR HER FEVER REFUSED SOLU-MEDROL FOR HER CHEST DISCOMFORT / PAIN WITH BREATHING REFUSED LEVSIN STRAIGHT CATH UA OBTAINED HAD 1 STOOL DURING ER STAY--SPECIMEN SENT TO LAB, TESTS ORDERED. NO VOMITING OR FURTHER COMPLAINTS OF NAUSEA OR ABDOMINAL PAIN FOR REMAINDER OF ER STAY. PT'S PORT IS NOT A POWER PORT, UNABLE TO OBTAIN IV ACCESS FOR IV CONTRAST FOR CT. Initial ECG Impression Date: Jan 18, 2019 Initial ECG Impression Time: 19:10 Initial ECG Rate: 99 Initial ECG Rhythm: Normal Sinus Diagnostic Imaging Comments CXR--NO ACUTE PROCESS, PER RADIOLOGIST REPORT CT CHEST/ABDOMEN /PELVIS--NO ACUTE PROCESS, PER RADIOLOGIST REPORT @ 2132 Reviewed: Reviewed by Me Departure Communication (Admissions) 2137--SPOKE WITH DR. MELVIN, HOSPITALIST [facility] FOR [facility], ACCEPTS PT FOR ADMIT. Impression Primary Impression: Chest pain Additional Impressions: Gastroenteritis Uncontrolled diabetes mellitus Non-compliance Hypomagnesemia Hx of coronary artery disease HX OF GERD /ESOPHAGITIS / DUODENITIS Disposition: ADMITTED INPATIENT Condition: Stable Admissions Decision to Admit Reason: Admit from ER (General) Decision to Admit/Date: Jan 18, 2019 Time/Decision to Admit Time: 21:40 Departure-Patient Inst. Referrals: [facility] (PCP/Family) Primary Care Physician PURA PIÑA DO Jan 18, 2019 19:32
[2019-01-18 19:33] LABS: BASOPHILS # (AUTO) 0.1 10^3/uL (0.0-0.1); BASOPHILS % (AUTO) 1 % (0-10); EOSINOPHILS # (AUTO) 0.2 10^3/uL (0.0-0.3); EOSINOPHILS % (AUTO) 2 % (0-10); HEMATOCRIT 38 % (35-52); HEMOGLOBIN 12.8 G/DL (11.5-16.0); LYMPHOCYTES # (AUTO) 3.4 X 10^3 (1.0-4.0); LYMPHOCYTES % (AUTO) 30 % (12-44); MEAN CORPUSCULAR HEMOGLOBIN 30 PG (25-34); MEAN CORPUSCULAR HGB CONC 34 G/DL (32-36); MEAN CORPUSCULAR VOLUME 87 FL (80-99); MEAN PLATELET VOLUME 10.7 FL (7.4-10.4); MONOCYTES # (AUTO) 0.4 X 10^3 (0.0-1.0); MONOCYTES % (AUTO) 4 % (0-12); NEUTROPHILS # (AUTO) 7.3 X 10^3 (1.8-7.8); NEUTROPHILS % (AUTO) 64 % (42-75); PLATELET COUNT 299 10^3/uL (130-400); RED CELL DISTRIBUTION WIDTH 13.7 % (10.0-14.5); WHITE BLOOD COUNT 11.3 10^3/uL (4.3-11.0)
--- NOTE | 2019-01-18 19:43 | Diagnostic Imaging Report ---
INDICATION: Chest pain. COMPARISON: 10/05/2018. FINDINGS: Single frontal view of the chest demonstrates normal heart size and pulmonary vascularity. The lungs are well aerated and clear. No large pleural effusion or pneumothorax is seen. The visualized osseous structures show no acute abnormalities. Right internal jugular Port-A-Cath is again identified with tip near the cavoatrial junction. IMPRESSION: 1. No acute cardiopulmonary process. Dictated by: Dictated on workstation # [id number]
[2019-01-18 19:51] LABS: INR 1.1 (0.8-1.4); PROTHROMBIN TIME PATIENT 13.8 SEC (12.2-14.7)
[2019-01-18 19:57] LABS: BILIRUBIN,URINE NEGATIVE (NEGATIVE); CLARITY,URINE CLEAR; COLOR,URINE YELLOW; GLUCOSE, URINE (UA) 4+ (NEGATIVE); KETONES,URINE NEGATIVE (NEGATIVE); LEUKOCYTE ESTERASE ,URINE NEGATIVE (NEGATIVE); NITRITE,URINE NEGATIVE (NEGATIVE); PH,URINE 6 (5-9); PROTEIN,URINE 3+ (NEGATIVE); UROBILINOGEN,URINE NORMAL (NORMAL)
[2019-01-18 20:01] LABS: ALANINE AMINOTRANSFERASE 11 U/L (0-55); ALBUMIN 3.7 GM/DL (3.2-4.5); ALKALINE PHOSPHATASE 85 U/L (40-136); AMYLASE 28 U/L (25-125); BILIRUBIN,TOTAL 0.4 MG/DL (0.1-1.0); BUN/CREATININE RATIO 15; CALCIUM 9.1 MG/DL (8.5-10.1); CARBON DIOXIDE 19 MMOL/L (21-32); CHLORIDE 104 MMOL/L (98-107); CREATINE KINASE 18 U/L (29-168); CREATININE SERUM 0.86 MG/DL (0.60-1.30); GFR ESTIMATED > 60; LIPASE 14 U/L (8-78); MAGNESIUM 1.5 MG/DL (1.8-2.4); POTASSIUM 3.5 MMOL/L (3.6-5.0); SODIUM 135 MMOL/L (135-145); TOTAL PROTEIN 6.5 GM/DL (6.4-8.2)
[2019-01-18 20:03] LABS: GLUCOSE 407 MG/DL (70-105)
[2019-01-18] MEDS ORDERED: NS IV 1000 ML 1,000 ML IV ONE (20:07)
[2019-01-18] MEDS ORDERED: NS 100 ML (IVPB) BAG IV ONE (20:15)
[2019-01-18] MEDS ORDERED: RECEIVED CONTRAST 20 ML VIAL IV SCH (20:15)
[2019-01-18] MEDS ORDERED: inSUlin (REGULAR) HUMAN 1 UNIT/0.01 ML (CHARGE PER UNIT) IV ONE (20:15)
[2019-01-18] MEDS ORDERED: diphenhydrAMINE 50 MG/ML INJ (BENADRYL) IVP ONE (20:15)
[2019-01-18] MEDS ORDERED: methylPREDNISolone 125 MG (Solu-MEDROL) VIAL IVP ONE (20:15)
[2019-01-18] MEDS ORDERED: HYOSCYAMINE 0.125 MG (LEVSIN) TAB PO ONE (20:15)
[2019-01-18] MEDS ORDERED: IOHEXOL 350 MG/ML 150 ML (OMNIPAQUE 350) VIAL IV ONE (20:15)
[2019-01-18 20:16] LABS: BACTERIA,URINE NEGATIVE /HPF; RBC,URINE RARE /HPF; WBC,URINE RARE /HPF
[2019-01-18 20:21] LABS: AMPHETAMINE SCREEN, URINE NEGATIVE (NEGATIVE); BARBITURATE SCREEN URINE NEGATIVE (NEGATIVE); BENZODIAZEPINES SCREEN URINE NEGATIVE (NEGATIVE); CANNABINOID SCREEN, URINE NEGATIVE (NEGATIVE); COCAINE SCREEN URINE NEGATIVE (NEGATIVE); METHADONE STAT NEGATIVE (NEGATIVE); METHAMPHETAMINE SCREEN URINE S NEGATIVE (NEGATIVE); OPIATE SCREEN URINE NEGATIVE (NEGATIVE); OXYCODONE STAT NEGATIVE (NEGATIVE); PROPOXYPHENE STAT NEGATIVE (NEGATIVE); TRICYCLIC ANTIDEPRESSANTS SCRE NEGATIVE (NEGATIVE)
[2019-01-18] MEDS ORDERED: inSUlin (REGULAR) HUMAN 1 UNIT/0.01 ML (CHARGE PER UNIT) ONE (20:44)
[2019-01-18] MEDS: MAGNESIUM 1 GM/100 ML IVPB 100 ML IV SCH ×2 (20:54→21:43)
--- NOTE | 2019-01-18 21:28 | Diagnostic Imaging Report ---
PROCEDURE: CT chest, abdomen, and pelvis without contrast. TECHNIQUE: Multiple contiguous axial images were obtained through the chest, abdomen, and pelvis without the use of intravenous contrast. INDICATION: Chest and abdominal pain. Nausea, vomiting, and diarrhea. COMPARISON: 07/31/2018 FINDINGS: CT chest: Osseous structures show multilevel degenerative changes. No lytic or blastic bony lesions are seen. Cardiomediastinal structures show normal heart size. There is no large pericardial effusion. There is mild scattered calcified aortic atherosclerosis and mild to moderate calcified coronary atherosclerosis. There may be indwelling coronary stent, but evaluation is obscured by motion artifact. No pathologically enlarged or morphologically abnormal adenopathy is seen within the mediastinum, boby, nor axilla on this noncontrast exam. Lung windows show no focal consolidation, large effusion, nor pneumothorax. No suspicious pulmonary nodules or masses are identified. CT abdomen: Postsurgical changes of previous lumbar fusion and laminectomy are noted. No acute osseous abnormality is identified. There are a few scattered colonic diverticuli, but no CT evidence of acute diverticulitis. Normal appendix is identified. Small bowel loops are nondistended. Multiple hypodense renal cysts are noted bilaterally. Otherwise, the kidneys, adrenal glands, spleen, pancreas, and liver have an unremarkable noncontrast CT appearance. There is no loculated fluid collection, free fluid, nor free air within the abdomen. No abnormal mesenteric or retroperitoneal adenopathy is seen. There is moderate calcified aortic and arterial atherosclerosis. CT pelvis: Right ovarian cyst measures 2.2 cm in diameter. This is decreased in size compared to 2.9 cm previously. Urinary bladder is unopacified. No calculi are seen within the urinary bladder. There is no loculated fluid collection, free fluid, nor free air within the pelvis. No abnormal lymph nodes are identified. Bony structures show no acute abnormalities. IMPRESSION: 1. No new acute abnormality within the chest, abdomen, or pelvis. 2. Calcified aortic, coronary, and arterial atherosclerosis as described above. 3. Small right ovarian cyst, which shows interval decrease in size when compared to prior exam. 4. Colonic diverticulosis, but no CT evidence of acute diverticulitis. Dictated by: Dictated on workstation # [id number]
[2019-01-18] MEDS ORDERED: morphine INJ 10 MG/ML 1ML (SYR OR VIAL) IVP STA (21:42)
[2019-01-18] MEDS ORDERED: NITROGLYCERIN 2% OINT 1 GM UNIT DOSE PACKET TOP ONE (21:45)
--- NOTE | 2019-01-18 22:40 | NUR ---
VALENTE HARPER admitted to room 432-1, with an admitting diagnosis of CHEST PAIN, on 01/18/19 from ED via CART, accompanied bY STAFF.VALENTE HARPER introduced to surroundings, call light, bed controls, phone, TV, temperature control, lights, meal times, smoking policy, visitor policy, side rail policy, bathrooms and showers. Patient Rights given to patient in the handbook. VALENTE HARPER verbalizes understanding that [facility] is not responsible for the loss or damage to any personal effects or valuables that are kept in the patients posession during their hospitalization.
[2019-01-18 23:00] VITALS: BP 134/74
[2019-01-18] MEDS: NS IV 1000 ML 1,000 ML IV SCH (23:05)
[2019-01-18 23:15] VITALS: BP 123/62
[2019-01-18 23:30] VITALS: BP 134/77
[2019-01-19] VITALS (10 sets, daily range): BP systolic 120–157; BP diastolic 56–77
[2019-01-19] MEDS: inSUlin ASPART (NovoLOG) 1 UNIT/0.01 ML (CHARGE PER UNIT) SC SCH ×6 (00:04→18:37)
[2019-01-19] MEDS: diphenhydrAMINE 50 MG/ML INJ (BENADRYL) IV PRN ×6 (00:13→22:24)
[2019-01-19] MEDS: PROMETHAZINE INJ 25 MG/ML (PHENERGAN) AMP IV PRN ×6 (00:13→22:24)
[2019-01-19 01:49] LABS: CREATINE KINASE 19 U/L (29-168)
[2019-01-19] MEDS: NITROGLYCERIN 0.4 MG SL TABS BTL 25'S SL PRN ×2 (01:52→01:58)
[2019-01-19 01:55] LABS: MYOGLOBIN SERUM 25.3 NG/ML (10.0-92.0)
[2019-01-19] MEDS: morphine INJ 4 MG/ML 1 ML (VIAL/SYRINGE) IV PRN ×5 (02:11→19:41)
[2019-01-19] MEDS: NS IV 1000 ML 1,000 ML IV SCH ×3 (03:53→23:04)
[2019-01-19 06:08] LABS: BASOPHILS # (AUTO) 0.1 10^3/uL (0.0-0.1); BASOPHILS % (AUTO) 1 % (0-10); EOSINOPHILS # (AUTO) 0.3 10^3/uL (0.0-0.3); EOSINOPHILS % (AUTO) 4 % (0-10); HEMATOCRIT 30 % (35-52); HEMOGLOBIN 10.6 G/DL (11.5-16.0); LYMPHOCYTES # (AUTO) 4.5 X 10^3 (1.0-4.0); LYMPHOCYTES % (AUTO) 49 % (12-44); MEAN CORPUSCULAR HEMOGLOBIN 30 PG (25-34); MEAN CORPUSCULAR HGB CONC 35 G/DL (32-36); MEAN CORPUSCULAR VOLUME 87 FL (80-99); MEAN PLATELET VOLUME 10.3 FL (7.4-10.4); MONOCYTES # (AUTO) 0.4 X 10^3 (0.0-1.0); MONOCYTES % (AUTO) 5 % (0-12); NEUTROPHILS # (AUTO) 3.9 X 10^3 (1.8-7.8); NEUTROPHILS % (AUTO) 42 % (42-75); PLATELET COUNT 238 10^3/uL (130-400); RED CELL DISTRIBUTION WIDTH 13.7 % (10.0-14.5); WHITE BLOOD COUNT 9.3 10^3/uL (4.3-11.0)
[2019-01-19 06:55] LABS: ALANINE AMINOTRANSFERASE 9 U/L (0-55); ALBUMIN 2.9 GM/DL (3.2-4.5); ALKALINE PHOSPHATASE 64 U/L (40-136); BILIRUBIN,TOTAL 0.3 MG/DL (0.1-1.0); BUN/CREATININE RATIO 15; CALCIUM 8.2 MG/DL (8.5-10.1); CARBON DIOXIDE 19 MMOL/L (21-32); CHLORIDE 112 MMOL/L (98-107); CHOLESTEROL 111 MG/DL (< 200); CREATININE SERUM 0.65 MG/DL (0.60-1.30); GFR ESTIMATED > 60; GLUCOSE 155 MG/DL (70-105); HDL CHOLESTEROL 26 MG/DL (40-60); MAGNESIUM 1.7 MG/DL (1.8-2.4); POTASSIUM 3.2 MMOL/L (3.6-5.0); SODIUM 139 MMOL/L (135-145); TRIGLYCERIDES 147 MG/DL (<150); VLDL CHOLESTEROL 29 MG/DL (5-40)
--- NOTE | 2019-01-19 08:54 | Consultation-Cardiology ---
HPI-Cardiology Cardiology Consultation: Date of Consultation 01/19/19 Date of Admission 01-18-19 Attending Physician Jazmine Berry DO Admitting Physician [facility] Consulting Physician Missy Cobb MD HPI: Chief Complaint: Chest pain Ms. Harper is a 58 year old female admitted to [facility] from the ED with a multitude of c/o. She reports she has had n/v/d for approx the last week. She states she has not been able to "keep any of her medications down". She states yesterday she was lying in bed when she began to have chest pressure with occ sharp stabbing pain. She states it was lower left sided and radiated up her chest and into her jaw. She denies any assoc dyspnea or palpitations. She states the pain is worse with deep inspiration. She had been having n/v/d all day. She reports she called EMS. She states she received nitro under the tongue by EMS which did not provide any relief. She reports in the ED they gave her nitro under the tongue again which did not provide any relief. She reports the only pain relief is with Morphine. She denies any LE swelling. She reports she is still having some chest discomfort, although only mild, more localized to the left side of ehr chest. She herself is concerned it is d/t a heart artery blockage. Review of Systems-Cardiology Review of Systems Constitutional: No chills, No fever; malaise Eyes: No vision change Ears/Nose/Throat: No epistaxis, No recent hearing loss Respiratory: As described under HPI Cardiovascular: As described under HPI Gastrointestinal: As described under HPI Genitourinary: No dysuria, No hematuria Musculoskeletal: other (generalized pain) Skin: No rash, No ulcerations Psychiatric/Neurological: No seizure, No focal weakness Hematologic: No bleeding abnormalities SPZ-Pnsonn-Bumxsb Hx Patient Social History Alcohol Use: Denies Use Recreational Drug Use: No Smoking Status: Former Smoker (1 PPD, REPORTEDLY QUIT 11/2017) Type Used: Cigarettes 2nd Hand Smoke Exposure: No Recent Foreign Travel: No Recent Infectious Disease Expo: No Hospitalization with Isolation: Denies Physical Abuse Screen: No Sexual Abuse: No Immunizations Up To Date Tetanus Booster (TDap): Unknown Date of Pneumonia Vaccine: Dec 12, 2013 Date of Influenza Vaccine: Sep 22, 2018 Past Medical History PMH As described under Assessment. Family Medical History Family Medical History: She reports her father had a stroke and high blood pressure. She reports her mother had CAD. She reports her brother has CAD, CVA and DM. Family History: Cancer of mouth 19 FATHER ( of esophogeal cancer.) Cardiovascular disease 19 MOTHER G8 BROTHER Completed stroke 19 FATHER G8 BROTHER Diabetes mellitus G8 BROTHER FH: lung cancer 19 MOTHER Hypertension 19 FATHER Kidney disease 19 FATHER Myocardial infarction 19 MOTHER G8 BROTHER Respiratory disorder No Family History of: AIDS Allergies and Home Medications Allergies Coded Allergies: ketorolac (Verified Allergy, Severe, ANAPHYLAXIS, PT TAKES ASA AT HOME, 11/23/18) ondansetron (Verified Allergy, Intermediate, RASH, 11/23/18) RASH/ HIVES exenatide (Verified Allergy, Unknown, NAUSEA, 11/23/18) NON STOP VOMITING latex (Verified Allergy, Unknown, RASH, 11/23/18) metoclopramide (Verified Allergy, Unknown, RESTLESS LEGS, 11/23/18) Home Medications Amlodipine Besylate 10 Mg Tablet, 5 MG PO DAILY, (Reported) LAST FILLED #21 AUG 2018 Aspirin 81 Mg Tablet.dr, 81 MG PO DAILY, (Reported) Atorvastatin Calcium 40 Mg Tablet, 40 MG PO HS, (Reported) LAST FILLED #30 10-11-18 Gabapentin 800 Mg Tablet, 1,600 MG PO HS, (Reported) TAKES 2 (800MG) TABLETS Gabapentin 800 Mg Tablet, 800 MG PO DAILY PRN for NERVE PAIN, (Reported) Insulin Detemir 100 Unit/1 Ml Insuln.pen, 30 UNIT SQ DAILY, (Reported) LAST FILLED AUGUST 2018 Insulin Lispro 100 Unit/1 Ml Insuln.pen, SQ TIDAC, (Reported) LAST FILLED MARCH 2018 Linagliptin 5 Mg Tablet, 5 MG PO DAILY, (Reported) Melatonin 5 Mg Capsule, 5 MG PO HS PRN for SLEEP, (Reported) Mirtazapine 15 Mg Tablet, 15 MG PO HS, (Reported) Omeprazole 20 Mg Capsule.dr, 20 MG PO DAILY, (Reported) Oxycodone HCl 10 Mg Tablet, 10 MG PO DAILY, (Reported) Oxycodone HCl/Acetaminophen 1 Each Tablet, 1 TAB PO Q4H PRN for PAIN-MODERATE, ( Reported) Physical Exam-Cardiology Physical Exam Vital Signs/I&O 01/19/19 01/20/19 01/20/19 01/20/19 21:00 00:00 01:00 04:00 Temp 97.4 97.1 Pulse 83 68 65 Resp 20 16 B/P (MAP) 151/68 (95) 149/73 (98) Pulse Ox 97 99 O2 Delivery Room Air Room Air Room Air 01/20/19 07:00 Pulse 63 01/20/19 00:00 Intake Total 1400 ml Output Total 2100 ml Balance -700 ml Capillary Refill : Less Than 3 Seconds Constitutional: AAO x 3, well-developed, well-nourished HEENT: PERRL, oral hygience is good Neck: No carotid bruit; carotid pulses are 2 + bilaterally Respiratory: No accessory muscle use, No respiratory distress; chest expansion is symmetric, chest is bilaterally symmetric, lungs clear to auscultation Cardiovascular: regular rate-rhythm; No JVD; S1 and S2 Gastrointestinal: soft, audible bowel sounds Extremities: no lower extremity edema bilateral Neurologic/Psychiatric: grossly intact, power is 5/5 both on sides Skin: No rash, No ulcerations Data Review Labs Laboratory Tests 01/19/19 10:24: Glucometer 189H 01/19/19 16:10: Glucometer 354H 01/19/19 18:35: Glucometer 179H 01/20/19 00:00: Glucometer 234H 01/20/19 05:00: White Blood Count 7.8, Red Blood Count 3.59L, Hemoglobin 10.6L, Hematocrit 32L, Mean Corpuscular Volume 89, Mean Corpuscular Hemoglobin 30, Mean Corpuscular Hemoglobin Concent 33, Red Cell Distribution Width 13.7, Platelet Count 219, Mean Platelet Volume 10.4, Neutrophils (%) (Auto) 41L, Lymphocytes (%) (Auto) 47H, Monocytes (%) (Auto) 6, Eosinophils (%) (Auto) 5, Basophils (%) (Auto) 1, Neutrophils # (Auto) 3.2, Lymphocytes # (Auto) 3.7, Monocytes # (Auto) 0.4, Eosinophils # (Auto) 0.4H, Basophils # (Auto) 0.1, Prothrombin Time 14.4, INR Comment 1.1, Activated Partial Thromboplast Time 27, Sodium Level 139, Potassium Level 3.6, Chloride Level 112H, Carbon Dioxide Level 19L, Anion Gap 8 , Blood Urea Nitrogen 6L, Creatinine 0.75, Estimat Glomerular Filtration Rate > 60, BUN/Creatinine Ratio 8, Glucose Level 198H, Calcium Level 8.4L, Corrected Calcium 9.1, Magnesium Level 1.6L, Total Bilirubin 0.3, Aspartate Amino Transf ( AST/SGOT) 13, Alanine Aminotransferase (ALT/SGPT) 9, Alkaline Phosphatase 65, Total Protein 5.3L, Albumin 3.1L 01/20/19 05:17: Glucometer 202H Microbiology 01/18/19 Blood Culture - Preliminary, Resulted No growth 01/18/19 C. difficile GDH Antigen & Toxins - Final, Complete 01/18/19 Influenza Types A,B Antigen (RACHELL) - Final, Complete Radiology NAME: VALENTE HARPER [facility] REC#: [id number] PT STATUS: REG ER : 1960 PHYSICIAN: PURA PIÑA DO ADMIT DATE: 01/18/19/ER Draft Date of Exam:01/18/19 CT CHEST/ABDOMEN/PELVIS WO PROCEDURE: CT chest, abdomen, and pelvis without contrast. TECHNIQUE: Multiple contiguous axial images were obtained through the chest, abdomen, and pelvis without the use of intravenous contrast. INDICATION: Chest and abdominal pain. Nausea, vomiting, and diarrhea. COMPARISON: 07/31/2018 FINDINGS: CT chest: Osseous structures show multilevel degenerative changes. No lytic or blastic bony lesions are seen. Cardiomediastinal structures show normal heart size. There is no large pericardial effusion. There is mild scattered calcified aortic atherosclerosis and mild to moderate calcified coronary atherosclerosis. There may be indwelling coronary stent, but evaluation is obscured by motion artifact. No pathologically enlarged or morphologically abnormal adenopathy is seen within the mediastinum, boby, nor axilla on this noncontrast exam. Lung windows show no focal consolidation, large effusion, nor pneumothorax. No suspicious pulmonary nodules or masses are identified. CT abdomen: Postsurgical changes of previous lumbar fusion and laminectomy are noted. No acute osseous abnormality is identified. There are a few scattered colonic diverticuli, but no CT evidence of acute diverticulitis. Normal appendix is identified. Small bowel loops are nondistended. Multiple hypodense renal cysts are noted bilaterally. Otherwise, the kidneys, adrenal glands, spleen, pancreas, and liver have an unremarkable noncontrast CT appearance. There is no loculated fluid collection, free fluid, nor free air within the abdomen. No abnormal mesenteric or retroperitoneal adenopathy is seen. There is moderate calcified aortic and arterial atherosclerosis. CT pelvis: Right ovarian cyst measures 2.2 cm in diameter. This is decreased in size compared to 2.9 cm previously. Urinary bladder is unopacified. No calculi are seen within the urinary bladder. There is no loculated fluid collection, free fluid, nor free air within the pelvis. No abnormal lymph nodes are identified. Bony structures show no acute abnormalities. IMPRESSION: 1. No new acute abnormality within the chest, abdomen, or pelvis. 2. Calcified aortic, coronary, and arterial atherosclerosis as described above. 3. Small right ovarian cyst, which shows interval decrease in size when compared to prior exam. 4. Colonic diverticulosis, but no CT evidence of acute diverticulitis. Dictated on workstation # [id number] Dict: 01/18/192114 Trans: 01/18/192126 [facility] [id number] Interpreted by: CRISTIN GARCIA MD Electronically signed by: ECG Impression ECG Initial ECG Rhythm: Normal Sinus A/P-Cardiology Assessment/Admission Diagnosis Chest pain of undetermined etiology - no evidence of ACS, but she verbalizes that she is very concerned she has a heart artery blockage Chronic multifactorial shortness of breath CAD. Underwent stenting of mid LAD Resolute Integrity 2.5x[address] Cohen on ; LVEF was 60% and there was 40--50% mid RCA stenosis. Subsequent cath by Dr Ibrahim on 07/16/15 (for recurrent chest pain) showed that the stent was patent and RCA disease was mild and LVEDP was normal. 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 Court Saha of nephrology services Discussion and Recomendations Chest pain of undetermined etiology with no evidence of ACS. However, she herself is verbalizing that she is very concerned her discomfort is d/t a heart artery blockage. Therefore, based on her on going chest discomfort and h/o. We advise cardiac cath to further eval her coronary status. We have discussed with her the procedure, risks, benefits and potential complications of cardiac cath with possible ad hoc coronary intervention. She provides informed consent. We will proceed tomorrow or sooner if needed. Echocardiogram to eval structure Continue ASA and statin Management of diabetes is per medical services Management of chronic pain is per medical services Monitor lab Further recs will be based on her hospital course We would like to thank medical services for this consult Clinical Quality Measures AMI/AHF: ASA po Prior to arrival: Yes (324 PER EMS) DVT/VTE Risk/Contraindication: Risk Factor Score Per Nursin RFS Level Per Nursing on Admit: 2=Moderate SHIRA BOOTHE Jan 19, 2019 08:54
[2019-01-19] MEDS ORDERED: PANTOPRAZOLE 40 MG (PROTONIX) VIAL IV SCH (09:00)
[2019-01-19] MEDS: ASPIRIN E.C. 81 MG (ECOTRIN) TAB PO SCH (09:39)
--- NOTE | 2019-01-19 09:44 | History & Physical-Hospitalist ---
History of Present Illness HPI/Chief Complaint Chief complaint: Chest pain and abdominal pain with diarrhea HPI: This is a 58yoWF frequent hospital patient of [facility] with a past medical history of brittle diabetes with history of multiple DKA episodes along with multiple somatic complaints with poor social situation at home who presents to the hospital with abdominal pain, chest pain and diarrhea. She was admitted placed on IV fluids and supportive care and will undergo cardiac catheterization cardiology who saw her today. She has been very noncompliant with follow-up appointments and taking medication properly. She is very focused on pain medication and narcotic dependency is noted. Source: patient Exam Limitations: no limitations Date Seen 01/19/19 Time Seen by a Provider: 09:30 Attending Physician Jazmine Berry DO [facility] Referring Physician Date of Admission Jan 18, 2019 at 21:40 Home Medications & Allergies Home Medications Reviewed patient Home Medication Reconciliation performed by pharmacy medication reconciliations echocardiograph technician and/or nursing. Patients Allergies have been reviewed. Allergies Allergies Coded Allergies ketorolac (Verified Allergy, Severe, ANAPHYLAXIS, PT TAKES ASA AT HOME, 11/23/18 ) ondansetron (Verified Allergy, Intermediate, RASH, 11/23/18) RASH/ HIVES exenatide (Verified Allergy, Unknown, NAUSEA, 11/23/18) NON STOP VOMITING latex (Verified Allergy, Unknown, RASH, 11/23/18) metoclopramide (Verified Allergy, Unknown, RESTLESS LEGS, 11/23/18) Past Lawlbyp-Dvzwed-Ptuibd Hx Past Med/Social Hx: Reviewed Nursing Past Med/Soc Hx, Reviewed and Corrections made Patient Social History Marrital Status: single Employed/Student: unemployed Alcohol Use: Denies Use Number of Drinks Today: Alcohol Beverage of Choice: Wine Recreational Drug Use: No Smoking Status: Former Smoker (1 PPD, REPORTEDLY QUIT 11/2017) Former Smoker, Quit: Nov 10, 2017 Type Used: Cigarettes 2nd Hand Smoke Exposure: No Physical Abuse Screen: No Sexual Abuse: No Recent Foreign Travel: No Contact w/other who traveled: No Recent Hopitalizations: No Recent Infectious Disease Expo: No Immunizations Up To Date Tetanus Booster (TDap): Unknown Pediatric: No Date of Pneumonia Vaccine: Dec 12, 2013 Date of Influenza Vaccine: Sep 22, 2018 Seasonal Allergies Seasonal Allergies: Yes Past Medical History Surgeries: Cardiac, Coronary Stent, Ear Surgery, Gallbladder, Orthopedic, Renal Respiratory: Asthma Currently Using CPAP: Yes (AT HOME) Currently Using BIPAP: No Cardiac: Chronic Edema/Swelling, Coronary Artery Disease, Deep Vein Thrombosis , High Cholesterol, Hypertension Neurological: Headaches /Migraines, Neuropathy 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: No Sexually Transmitted Disease: No HIV/AIDS: No 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 Disorders: Denies Menopausal Genitourinary: Bladder Infection, Kidney Stones, Renal Failure Gastrointestinal: Gastroesophageal Reflux, Diverticulosis, Esophagitis, Hiatal Hernia, Irritable Bowel Musculoskeletal: Degenerate Disk Disease, Fibromyalgia, Chronic Back Pain Endocrine: Diabetes, Insulin dep HEENT: Chronic Ear Infection Loss of Vision: Denies Hearing Impairment: Hard of Hearing Psychosocial: Anxiety Skin/Integumentary: Psoriasis History of Blood Disorders: No Adverse Reaction to Blood Green: No Family History Cancer of mouth 19 FATHER ( of esophogeal cancer.) Cardiovascular disease 19 MOTHER G8 BROTHER Completed stroke 19 FATHER G8 BROTHER Diabetes mellitus G8 BROTHER FH: lung cancer 19 MOTHER Hypertension 19 FATHER Kidney disease 19 FATHER Myocardial infarction 19 MOTHER G8 BROTHER Respiratory disorder No Family History of: AIDS CAD Over 55 Years Old, CVA, Diabetes, GI Disease, Renal Disease Review of Systems Constitutional: see HPI EENTM: no symptoms reported Respiratory: dyspnea on exertion Cardiovascular: chest pain Gastrointestinal: loss of appetite, nausea, vomiting Genitourinary: no symptoms reported Musculoskeletal: no symptoms reported Skin: no symptoms reported Psychiatric/Neurological: No Symptoms Reported All Other Systems Reviewed Negative Unless Noted: Yes Physical Exam Physical Exam Vital Signs Vital Signs - First Documented 01/18/19 22:28 Pulse Ox 95 Capillary Refill : Less Than 3 Seconds Height, Weight, BMI Height: 5'0.00" Weight: 137lbs. 6.0oz. [id number]; 26.8 BMI Method:Estimated General Appearance: No Apparent Distress, WD/WN, Chronically ill Eyes: Right Eye Normal Inspection, Right Eye PERRL HEENT: PERRL/EOMI, Normal ENT Inspection, Pharynx Normal, Moist Mucous Membranes Neck: Full Range of Motion, Normal Inspection, Non Tender Respiratory: Chest Non Tender, Lungs Clear, Normal Breath Sounds, No Accessory Muscle Use, No Respiratory Distress Cardiovascular: Regular Rate, Rhythm, No Edema, No Gallop, No JVD, No Murmur, Normal Peripheral Pulses Gastrointestinal: Normal Bowel Sounds, No Organomegaly, No Pulsatile Mass, Non Tender, Soft Back: Normal Inspection, No CVA Tenderness, No Vertebral Tenderness Extremity: Normal Capillary Refill, Normal Inspection, Normal Range of Motion, Non Tender, No Calf Tenderness, No Pedal Edema Neurologic/Psychiatric: Alert, Oriented x3, No Motor/Sensory Deficits, Normal Mood/Affect Skin: Normal Color, Warm/Dry Lymphatic: No Adenopathy Results Results/Procedures Labs Laboratory Tests 01/18/19 19:18 01/19/19 05:57 Patient resulted labs reviewed. Assessment/Plan Admission Diagnosis Assessment: Chest pain DM brittle Multiple DKA's in the past Yeast esophagitis in the past s/p EGD per Dr Rubin Chronic pain issues HTN HLP Plan: Monitor pain issues Cardiac cath tomorrow Home meds Pain management Admission Status: Observation Diagnosis/Problems Diagnosis/Problems (1) Chest pain Status: Acute Qualifiers: Chest pain type: unspecified Qualified Codes: R07.9 - Chest pain, unspecified (2) Hyponatremia Status: Acute (3) Acute renal insufficiency Status: Acute (4) Medical non-compliance Status: Chronic (5) Peripheral neuropathy Status: Chronic Qualifiers: Peripheral neuropathy type: polyneuropathy, unspecified Qualified Codes: G62.9 - Polyneuropathy, unspecified (6) Chronic pain Status: Chronic Qualifiers: Chronic pain type: other chronic pain Qualified Codes: G89.29 - Other chronic pain (7) Uncontrolled diabetes mellitus Status: Chronic (8) Intractable nausea and vomiting Status: Acute (9) Smoker Status: Chronic (10) Hx of coronary artery disease Status: Chronic Clinical Quality Measures AMI/AHF: ASA po Prior to arrival: Yes (324 PER EMS) DVT/VTE Risk/Contraindication: Risk Factor Score Per Nursin RFS Level Per Nursing on Admit: 2=Moderate JAZMINE BERRY DO Jan 19, 2019 09:44
[2019-01-19] MEDS ORDERED: inSUlin ASPART (NovoLOG) 1 UNIT/0.01 ML (CHARGE PER UNIT) SC NR (09:45)
[2019-01-19] MEDS ORDERED: KCL 20 MEQ TAB (K-DUR) PO NR (10:00)
[2019-01-19] MEDS: MAGNESIUM 1 GM/100 ML IVPB 100 ML IV SCH ×2 (10:50→12:40)
[2019-01-19] MEDS ORDERED: GABAPENTIN 400 MG (NEURONTIN) CAP PO PRN (14:00)
--- NOTE | 2019-01-19 14:47 | NUR ---
CM/SS, initial interview with patient. [facility]: Patient has established services with [facility], confirmed with agency. She has chronometer tester and has had PT. Pipe Roller recommends these services be continued by physician order upon discharge: assistant surveyor, PT, and OT. SUMMARY: Patient continues to reside in [facility] [place] [facility]. She indicates her sister and spouse, her niece and children ages 4 and 14 months came to visit for [place] and never left. They are residing with her in the [facility] one-bedroom apartment off the record. The niece has evidently applied for Food Stamp assistance and patient indicates they are using her address for all business. Per history, her son was incarcerated last Fall on serious charges increasing her stress level. This, coupled with her sister/family living in, appears to have continued to keep her psychosocial situation delicate. This was the reason for utilizing [facility] for the support of the RN with psychiatric specialty. Aside from mental health history, indications are that patient is not consistently compliant with Rx and diabetic management. She also indicates she has CPAP but that she doesn't use it because "she can't breathe." When asked about getting CPAP assessed, she said her nose is clogged and it isn't the equipment. Plan is home at discharge. [facility] orders as noted above should be resumed. Pipe Roller spoke with Lesley at [facility] to let them know patient was here OBS and the plan for followup.
[2019-01-19] MEDS: LORazepam INJ 2 MG/ML (ATIVAN) VIAL IV PRN (17:04)
--- NOTE | 2019-01-19 17:10 | Consultation-Cardiology ---
HPI-Cardiology Cardiology Consultation: Date of Consultation 01/19/19 Time Seen by a Provider: 09:10 Date of Admission Attending Physician Jazmine Berry DO Admitting Physician [facility] Consulting Physician RICH FELIX MD, MA, FACP, FACC, [facility] [place], [facility] Physician requesting consult: Dr Berry HPI: Chief Complaint: CC: Chest pain HPI Ms. Urbano is a 58 year old female admitted to [facility] from the ED with a multitude of c/o. She reports she has had n/v/d for approx the last week. She states she has not been able to "keep any of her medications down". She states yesterday she was lying in bed when she began to have chest pressure with occ sharp stabbing pain. She states it was lower left sided and radiated up her chest and into her jaw. She denies any assoc dyspnea or palpitations. She states the pain is worse with deep inspiration. She had been having n/v/d all day. She reports she called EMS. She states she received nitro under the tongue by EMS which did not provide any relief. She reports in the ED they gave her nitro under the tongue again which did not provide any relief. She reports the only pain relief is with Morphine. She denies any LE swelling. She reports she is still having some chest discomfort, although only mild, more localized to the left side of ehr chest. She herself is concerned it is d/t a heart artery blockage. Review of Systems-Cardiology Review of Systems Constitutional: No chills, No fever; malaise Eyes: No vision change Ears/Nose/Throat: No epistaxis, No recent hearing loss Respiratory: As described under HPI Cardiovascular: As described under HPI Gastrointestinal: As described under HPI Genitourinary: No dysuria, No hematuria Musculoskeletal: other (generalized pain) Skin: No rash, No ulcerations Psychiatric/Neurological: No seizure, No focal weakness Hematologic: No bleeding abnormalities XMA-Gqwqlv-Xtaval Hx Patient Social History Alcohol Use: Denies Use Recreational Drug Use: No Smoking Status: Former Smoker (1 PPD, REPORTEDLY QUIT 11/2017) Type Used: Cigarettes 2nd Hand Smoke Exposure: No Recent Foreign Travel: No Recent Infectious Disease Expo: No Hospitalization with Isolation: Denies Physical Abuse Screen: No Sexual Abuse: No Immunizations Up To Date Tetanus Booster (TDap): Unknown Date of Pneumonia Vaccine: Dec 12, 2013 Date of Influenza Vaccine: Sep 22, 2018 Past Medical History PMH As described under Assessment. Family Medical History Family Medical History: She reports her father had a stroke and high blood pressure. She reports her mother had CAD. She reports her brother has CAD, CVA and DM. Family History: Cancer of mouth 19 FATHER ( of esophogeal cancer.) Cardiovascular disease 19 MOTHER G8 BROTHER Completed stroke 19 FATHER G8 BROTHER Diabetes mellitus G8 BROTHER FH: lung cancer 19 MOTHER Hypertension 19 FATHER Kidney disease 19 FATHER Myocardial infarction 19 MOTHER G8 BROTHER Respiratory disorder No Family History of: AIDS Allergies and Home Medications Allergies Coded Allergies: ketorolac (Verified Allergy, Severe, ANAPHYLAXIS, PT TAKES ASA AT HOME, 11/23/18) ondansetron (Verified Allergy, Intermediate, RASH, 11/23/18) RASH/ HIVES exenatide (Verified Allergy, Unknown, NAUSEA, 11/23/18) NON STOP VOMITING latex (Verified Allergy, Unknown, RASH, 11/23/18) metoclopramide (Verified Allergy, Unknown, RESTLESS LEGS, 11/23/18) Home Medications Amlodipine Besylate 10 Mg Tablet, 5 MG PO DAILY, (Reported) LAST FILLED #21 AUG 2018 Aspirin 81 Mg Tablet.dr, 81 MG PO DAILY, (Reported) Atorvastatin Calcium 40 Mg Tablet, 40 MG PO HS, (Reported) LAST FILLED #30 10-11-18 Gabapentin 800 Mg Tablet, 1,600 MG PO HS, (Reported) TAKES 2 (800MG) TABLETS Gabapentin 800 Mg Tablet, 800 MG PO DAILY PRN for NERVE PAIN, (Reported) Insulin Detemir 100 Unit/1 Ml Insuln.pen, 30 UNIT SQ DAILY, (Reported) LAST FILLED AUGUST 2018 Insulin Lispro 100 Unit/1 Ml Insuln.pen, SQ TIDAC, (Reported) LAST FILLED MARCH 2018 Linagliptin 5 Mg Tablet, 5 MG PO DAILY, (Reported) Melatonin 5 Mg Capsule, 5 MG PO HS PRN for SLEEP, (Reported) Mirtazapine 15 Mg Tablet, 15 MG PO HS, (Reported) Omeprazole 20 Mg Capsule.dr, 20 MG PO DAILY, (Reported) Oxycodone HCl 10 Mg Tablet, 10 MG PO DAILY, (Reported) Oxycodone HCl/Acetaminophen 1 Each Tablet, 1 TAB PO Q4H PRN for PAIN-MODERATE, ( Reported) Patient Home Medication List Home Medication List Reviewed: Yes Physical Exam-Cardiology Physical Exam Vital Signs/I&O 01/19/19 01/19/19 01/19/19 01/19/19 07:00 08:00 09:00 12:00 Temp 97.7 96.0 Pulse 66 65 66 Resp 16 18 B/P (MAP) 130/60 (83) 132/62 (85) Pulse Ox 97 98 98 O2 Delivery Room Air Room Air Room Air 01/19/19 01/19/19 13:00 16:07 Temp 97.4 Pulse 60 61 Resp 20 B/P (MAP) 125/58 (80) Pulse Ox 96 O2 Delivery Room Air 01/19/19 00:00 Intake Total 2100 ml Balance 2100 ml Capillary Refill : Less Than 3 Seconds Constitutional: AAO x 3, well-developed, well-nourished HEENT: PERRL, oral hygience is good Neck: No carotid bruit; carotid pulses are 2 + bilaterally Respiratory: No accessory muscle use, No respiratory distress; chest expansion is symmetric, chest is bilaterally symmetric, lungs clear to auscultation Cardiovascular: regular rate-rhythm; No JVD; S1 and S2 Gastrointestinal: soft, audible bowel sounds Extremities: no lower extremity edema bilateral Neurologic/Psychiatric: grossly intact, power is 5/5 both on sides Skin: No rash, No ulcerations Data Review Labs Laboratory Tests 01/18/19 19:18: White Blood Count 11.3H, Red Blood Count 4.33L, Hemoglobin 12.8, Hematocrit 38, Mean Corpuscular Volume 87, Mean Corpuscular Hemoglobin 30, Mean Corpuscular Hemoglobin Concent 34, Red Cell Distribution Width 13.7, Platelet Count 299, Mean Platelet Volume 10.7H, Neutrophils (%) (Auto) 64, Lymphocytes (%) (Auto) 30 , Monocytes (%) (Auto) 4, Eosinophils (%) (Auto) 2, Basophils (%) (Auto) 1, Neutrophils # (Auto) 7.3, Lymphocytes # (Auto) 3.4, Monocytes # (Auto) 0.4, Eosinophils # (Auto) 0.2, Basophils # (Auto) 0.1, Prothrombin Time 13.8, INR Comment 1.1, Activated Partial Thromboplast Time 22L, Sodium Level 135, Potassium Level 3.5L, Chloride Level 104, Carbon Dioxide Level 19L, Anion Gap 12 , Blood Urea Nitrogen 13, Creatinine 0.86, Estimat Glomerular Filtration Rate > 60, BUN/Creatinine Ratio 15, Glucose Level 407*H, Lactic Acid Level 1.16, Calcium Level 9.1, Corrected Calcium 9.3, Magnesium Level 1.5L, Total Bilirubin 0.4, Aspartate Amino Transf (AST/SGOT) 16, Alanine Aminotransferase (ALT/SGPT) 11, Alkaline Phosphatase 85, Total Creatine Kinase 18L, Creatine Kinase MB 1.0, Troponin I < 0.028, B-Type Natriuretic Peptide 39.0, Total Protein 6.5, Albumin 3.7, Amylase Level 28, Lipase 14 01/18/19 19:45: Urine Color YELLOW, Urine Clarity CLEAR, Urine pH 6, Urine Specific [place] 1.020, Urine Protein 3+H, Urine Glucose (UA) 4+H, Urine Ketones NEGATIVE, Urine Nitrite NEGATIVE, Urine Bilirubin NEGATIVE, Urine Urobilinogen NORMAL, Urine Leukocyte Esterase NEGATIVE, Urine RBC (Auto) NEGATIVE, Urine RBC RARE, Urine WBC RARE, Urine Crystals NONE, Urine Bacteria NEGATIVE, Urine Casts PRESENT, Urine Hyaline Casts 2-5H, Urine Mucus NEGATIVE, Urine Culture Indicated NO, Urine Opiates Screen NEGATIVE, Urine Oxycodone Screen NEGATIVE, Urine Methadone Screen NEGATIVE, Urine Propoxyphene Screen NEGATIVE, Urine Barbiturates Screen NEGATIVE, Ur Tricyclic Antidepressants Screen NEGATIVE, Urine Phencyclidine Screen NEGATIVE, Urine Amphetamines Screen NEGATIVE, Urine Methamphetamines Screen NEGATIVE, Urine Benzodiazepines Screen NEGATIVE, Urine Cocaine Screen NEGATIVE, Urine Cannabinoids Screen NEGATIVE 01/18/19 22:16: Glucometer 184H 01/18/19 23:52: Glucometer 75 01/19/19 01:10: Glucometer 102 01/19/19 01:15: Total Creatine Kinase 19L, Myoglobin 25.3, Troponin I < 0.028 01/19/19 05:44: Glucometer 160H 01/19/19 05:57: White Blood Count 9.3, Red Blood Count 3.49L, Hemoglobin 10.6L, Hematocrit 30L, Mean Corpuscular Volume 87, Mean Corpuscular Hemoglobin 30, Mean Corpuscular Hemoglobin Concent 35, Red Cell Distribution Width 13.7, Platelet Count 238, Mean Platelet Volume 10.3, Neutrophils (%) (Auto) 42, Lymphocytes (%) (Auto) 49H , Monocytes (%) (Auto) 5, Eosinophils (%) (Auto) 4, Basophils (%) (Auto) 1, Neutrophils # (Auto) 3.9, Lymphocytes # (Auto) 4.5H, Monocytes # (Auto) 0.4, Eosinophils # (Auto) 0.3, Basophils # (Auto) 0.1, Sodium Level 139, Potassium Level 3.2L, Chloride Level 112H, Carbon Dioxide Level 19L, Anion Gap 8, Blood Urea Nitrogen 10, Creatinine 0.65, Estimat Glomerular Filtration Rate > 60, BUN/ Creatinine Ratio 15, Glucose Level 155H, Calcium Level 8.2L, Corrected Calcium 9.1, Magnesium Level 1.7L, Total Bilirubin 0.3, Aspartate Amino Transf (AST/SGOT ) 13, Alanine Aminotransferase (ALT/SGPT) 9, Alkaline Phosphatase 64, Total Protein 5.0L, Albumin 2.9L, Triglycerides Level 147, Cholesterol Level 111, LDL Cholesterol Direct 57, VLDL Cholesterol 29, HDL Cholesterol 26L 01/19/19 10:24: Glucometer 189H 01/19/19 16:10: Glucometer 354H Microbiology 01/18/19 Blood Culture - Preliminary, Resulted No growth 01/18/19 C. difficile GDH Antigen & Toxins - Final, Complete 01/18/19 Influenza Types A,B Antigen (RACHELL) - Final, Complete A/P-Cardiology Assessment/Admission Diagnosis Chest pain of undetermined etiology - no distinct evidence of ACS, but she verbalizes that she is very concerned she has a heart artery blockage Chronic multifactorial shortness of breath CAD. Underwent stenting of mid LAD Resolute Integrity 2.5x14 [address] Cohen on ; LVEF was 60% and there was 40--50% mid RCA stenosis. Subsequent cath by Dr Ibrahim on 07/16/15 (for recurrent chest pain) showed that the stent was patent and RCA disease was mild and LVEDP was normal. 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 Court Saha of nephrology services Discussion and Recomendations Chest pain of undetermined etiology with no evidence of ACS. However, she herself is verbalizing that she is very concerned her discomfort is d/t a heart artery blockage and requests card cath. Therefore, based on her on going chest discomfort and her history, we advise cardiac cath to further eval her coronary status. We have discussed with her the procedure, risks, benefits and potential complications of cardiac cath with possible ad hoc coronary intervention. She provides informed consent. We will proceed tomorrow or sooner if needed. Echocardiogram to eval structure Continue ASA and statin Management of diabetes is per medical services Management of chronic pain is per medical services Monitor lab Further recs will be based on her hospital course We would like to thank medical services for this consult Clinical Quality Measures AMI/AHF: ASA po Prior to arrival: Yes (324 PER EMS) DVT/VTE Risk/Contraindication: Risk Factor Score Per Nursin RFS Level Per Nursing on Admit: 2=Moderate RICH FELIX MD FACP FACC CCDS Jan 19, 2019 17:10
[2019-01-19] MEDS: oxyCODONE/APAP 10/325MG (PERCOCET 10) TABLET PO PRN (20:36)
[2019-01-19] MEDS ORDERED: MELATONIN 3 MG TABLET PO PRN (21:00)
[2019-01-19] MEDS ORDERED: MIRTAZAPINE 15 MG (REMERON) TAB PO SCH (21:00)
[2019-01-19] MEDS ORDERED: GABAPENTIN 400 MG (NEURONTIN) CAP PO SCH (21:00)
[2019-01-19] MEDS ORDERED: ATORVASTATIN 40 MG (LIPITOR) TABLET PO SCH (21:00)
[2019-01-20] VITALS (12 sets, daily range): BP systolic 138–183; BP diastolic 68–97
[2019-01-20] MEDS: inSUlin ASPART (NovoLOG) 1 UNIT/0.01 ML (CHARGE PER UNIT) SC SCH ×4 (00:01→11:36)
[2019-01-20] MEDS: NS IV 1000 ML 1,000 ML IV SCH (00:27)
[2019-01-20] MEDS: morphine INJ 4 MG/ML 1 ML (VIAL/SYRINGE) IV PRN ×2 (00:27→04:56)
[2019-01-20] MEDS: LORazepam INJ 2 MG/ML (ATIVAN) VIAL IV PRN ×2 (01:10→08:00)
[2019-01-20 05:03] LABS: BASOPHILS # (AUTO) 0.1 10^3/uL (0.0-0.1); BASOPHILS % (AUTO) 1 % (0-10); EOSINOPHILS # (AUTO) 0.4 10^3/uL (0.0-0.3); EOSINOPHILS % (AUTO) 5 % (0-10); HEMATOCRIT 32 % (35-52); HEMOGLOBIN 10.6 G/DL (11.5-16.0); LYMPHOCYTES # (AUTO) 3.7 X 10^3 (1.0-4.0); LYMPHOCYTES % (AUTO) 47 % (12-44); MEAN CORPUSCULAR HEMOGLOBIN 30 PG (25-34); MEAN CORPUSCULAR HGB CONC 33 G/DL (32-36); MEAN CORPUSCULAR VOLUME 89 FL (80-99); MEAN PLATELET VOLUME 10.4 FL (7.4-10.4); MONOCYTES # (AUTO) 0.4 X 10^3 (0.0-1.0); MONOCYTES % (AUTO) 6 % (0-12); NEUTROPHILS # (AUTO) 3.2 X 10^3 (1.8-7.8); NEUTROPHILS % (AUTO) 41 % (42-75); PLATELET COUNT 219 10^3/uL (130-400); RED CELL DISTRIBUTION WIDTH 13.7 % (10.0-14.5); WHITE BLOOD COUNT 7.8 10^3/uL (4.3-11.0)
[2019-01-20 05:14] LABS: INR 1.1 (0.8-1.4); PROTHROMBIN TIME PATIENT 14.4 SEC (12.2-14.7)
[2019-01-20 05:22] LABS: ALANINE AMINOTRANSFERASE 9 U/L (0-55); ALBUMIN 3.1 GM/DL (3.2-4.5); ALKALINE PHOSPHATASE 65 U/L (40-136); BILIRUBIN,TOTAL 0.3 MG/DL (0.1-1.0); BUN/CREATININE RATIO 8; CALCIUM 8.4 MG/DL (8.5-10.1); CARBON DIOXIDE 19 MMOL/L (21-32); CHLORIDE 112 MMOL/L (98-107); CREATININE SERUM 0.75 MG/DL (0.60-1.30); GFR ESTIMATED > 60; GLUCOSE 198 MG/DL (70-105); MAGNESIUM 1.6 MG/DL (1.8-2.4); POTASSIUM 3.6 MMOL/L (3.6-5.0); SODIUM 139 MMOL/L (135-145); TOTAL PROTEIN 5.3 GM/DL (6.4-8.2)
[2019-01-20] MEDS ORDERED: NS IV 1000 ML 1,000 ML IV SCH ×2 (06:00→09:27)
[2019-01-20] MEDS ORDERED: HEParin 1000 UNIT/ML (10ML VIAL) FOR BOLUS ONE (07:37)
[2019-01-20] MEDS ORDERED: NS IV 1000 ML 2,000 ML ONE (07:37)
[2019-01-20] MEDS ORDERED: LIDOCAINE 1% INJ 20 ML 20 ML VIAL ONE (07:37)
[2019-01-20] MEDS ORDERED: MIDAZOLAM 5 MG/5 ML (VERSED) VIAL ONE (07:42)
[2019-01-20] MEDS ORDERED: fentaNYL INJECTION 100 MCG/2 ML AMP ONE (07:42)
[2019-01-20] MEDS: diphenhydrAMINE 50 MG/ML INJ (BENADRYL) IV PRN (08:00)
[2019-01-20] MEDS: PROMETHAZINE INJ 25 MG/ML (PHENERGAN) AMP IV PRN (08:01)
[2019-01-20] MEDS: oxyCODONE/APAP 10/325MG (PERCOCET 10) TABLET PO PRN (08:02)
[2019-01-20] MEDS: ASPIRIN E.C. 81 MG (ECOTRIN) TAB PO SCH (08:08)
--- NOTE | 2019-01-20 08:28 | Cardiac Procedure Note-CS/ASA ---
Pre-Procedure Note Pre-Op Procedure Note H&P Reviewed The H&P was reviewed, patient examined and no changes noted. Date H&P Reviewed: Jan 20, 2019 Time H&P Reviewed: 08:28 Conscious Sedation Pre-Proced Time 08:28 ASA Score 3 For ASA 3 and 4: Consider anesthesia and medical clearance. Also, for patients with a history of failed moderate sedation consider anesthesia. Airway Lungs Heart ASA score ASA 1: a normal healthy patient ASA 2: a patient with a mild systemic disease (mid diabetes, controlled hypertension, obesity ASA 3: a patient with a severe systemic disease that limits activity (angina , COPD, prior Myocardial infarction) ASA 4: a patient with an incapacitating disease that is a constant threat to life (CHF, renal failure) ASA 5: a moribund patient not expected to survive 24 hrs. (ruptured aneurysm) ASA 6: a declared brain- patient whose organs are being harvested. For emergent operations, add the letter E after the classification Mallampati Classification Grade 2 Sedation Plan Analgesia, Amnesia, Plan communicated to team members, Discussed options with patient/fam, Discussed risks with patient/fam The patient is an appropriate candidate to undergo the planned procedure, sedation, and anesthesia. The patient immediately re-assessed prior to indication. RICH FELIX MD FACP FAC CCDS Jan 20, 2019 08:28
[2019-01-20] MEDS ORDERED: ADENOSINE 3 MG/1 ML (ADENOSCAN) 30ML VIAL IV ONE (08:46)
[2019-01-20] MEDS ORDERED: ASPIRIN E.C. 81 MG (ECOTRIN) TAB PO SCH (09:00)
[2019-01-20] MEDS ORDERED: PANTOPRAZOLE 20 MG TABLET (PROTONIX) PO SCH (09:00)
[2019-01-20] MEDS ORDERED: LINAGLIPTIN (TRADJENTA) 5 MG TABLET PO SCH (09:00)
--- NOTE | 2019-01-20 09:23 | Progress Note-Cardiology ---
Cardiology SOAP Progress Note Subjective: Gen body discomfort and intermittent nausea, as before No specific cp No palp or syncope Objective: I&O/Vital Signs 01/20/19 01/20/19 01/20/19 01/20/19 00:00 01:00 04:00 07:00 Temp 97.4 97.1 Pulse 83 68 65 63 Resp 20 16 B/P (MAP) 151/68 (95) 149/73 (98) Pulse Ox 97 99 O2 Delivery Room Air Room Air 01/20/19 08:02 Temp 96.9 Pulse 68 Resp 18 B/P (MAP) 171/71 (104) Pulse Ox 98 O2 Delivery Room Air 01/20/19 00:00 Intake Total 1400 ml Output Total 2100 ml Balance -700 ml Weight (Pounds): 137 Weight (Ounces): 6.0 Weight (Calculated Kilograms): [id number] Constitutional: AAO x 3, well-developed, well-nourished Respiratory: No accessory muscle use, No respiratory distress; chest expansion is symmetric, chest is bilaterally symmetric, lungs clear to auscultation Cardiovascular: regular rate-rhythm; No JVD; S1 and S2 Gastrointestional: soft, audible bowel sounds Extremities: no lower extremity edema bilateral Neurologic/Psychiatric: grossly intact, power is 5/5 both on sides Skin: No rash, No ulcerations Results/Procedures: Labs Laboratory Tests 01/19/19 10:24: Glucometer 189H 01/19/19 16:10: Glucometer 354H 01/19/19 18:35: Glucometer 179H 01/20/19 00:00: Glucometer 234H 01/20/19 05:00: White Blood Count 7.8, Red Blood Count 3.59L, Hemoglobin 10.6L, Hematocrit 32L, Mean Corpuscular Volume 89, Mean Corpuscular Hemoglobin 30, Mean Corpuscular Hemoglobin Concent 33, Red Cell Distribution Width 13.7, Platelet Count 219, Mean Platelet Volume 10.4, Neutrophils (%) (Auto) 41L, Lymphocytes (%) (Auto) 47H, Monocytes (%) (Auto) 6, Eosinophils (%) (Auto) 5, Basophils (%) (Auto) 1, Neutrophils # (Auto) 3.2, Lymphocytes # (Auto) 3.7, Monocytes # (Auto) 0.4, Eosinophils # (Auto) 0.4H, Basophils # (Auto) 0.1, Prothrombin Time 14.4, INR Comment 1.1, Activated Partial Thromboplast Time 27, Sodium Level 139, Potassium Level 3.6, Chloride Level 112H, Carbon Dioxide Level 19L, Anion Gap 8 , Blood Urea Nitrogen 6L, Creatinine 0.75, Estimat Glomerular Filtration Rate > 60, BUN/Creatinine Ratio 8, Glucose Level 198H, Calcium Level 8.4L, Corrected Calcium 9.1, Magnesium Level 1.6L, Total Bilirubin 0.3, Aspartate Amino Transf ( AST/SGOT) 13, Alanine Aminotransferase (ALT/SGPT) 9, Alkaline Phosphatase 65, Total Protein 5.3L, Albumin 3.1L 01/20/19 05:17: Glucometer 202H Microbiology 01/18/19 Blood Culture - Preliminary, Resulted No growth 01/18/19 C. difficile GDH Antigen & Toxins - Final, Complete 01/18/19 Influenza Types A,B Antigen (RACHELL) - Final, Complete Laboratory Tests 01/18/19 19:18 01/19/19 05:57 01/20/19 05:00 A/P: Assessment: Chest pain of undetermined etiology - no evidence of ACS Chronic multifactorial shortness of breath CAD. Underwent stenting of mid LAD Resolute Integrity 2.5x14 [address] Dr Cohen on ; Last cath on 01/20/19: patent mid LAD stent with 50% post-stent (FFR 0.86), 50 % distal LCX OM and D1 and prox and distal RCA. 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 Court Saha of nephrology services Plan: * We reviewed and discussed her cardiac w/u during this hosp * Focus of CV management is on risk factor mod, including immediate and complete cessation of tobacco use. All of this was discussed with her and outpt f/u advised * Med compliance advised Clinical Quality Measures AMI/AHF: ASA po Prior to arrival: Yes (324 PER EMS) RICH FELIX MD FACP FACC CCDS Jan 20, 2019 09:23
[2019-01-20] MEDS ORDERED: PATIENT MAY USE OWN MEDS, ALL PO SCH (09:30)
[2019-01-20] MEDS ORDERED: ASPIRIN 81 MG CHEW (CHILDREN'S ASA) PO ONE (09:30)
[2019-01-20] MEDS ORDERED: meTOproloL SUCCINATE 50 MG (TOPROL XL) TAB PO ONE (09:30)
--- NOTE | 2019-01-20 10:33 | Progress Note-Hospitalist ---
Subjective HPI/CC On Admission Date Seen by Provider: Jan 20, 2019 Time Seen by Provider: 10:00 Chief complaint: Chest pain and abdominal pain with diarrhea HPI: This is a 58yoWF frequent hospital patient of [facility] with a past medical history of brittle diabetes with history of multiple DKA episodes along with multiple somatic complaints with poor social situation at home who presents to the hospital with abdominal pain, chest pain and diarrhea. She was admitted placed on IV fluids and supportive care and will undergo cardiac catheterization cardiology who saw her today. She has been very noncompliant with follow-up appointments and taking medication properly. She is very focused on pain medication and narcotic dependency is noted. Focused Exam Lactate Level 01/18/19 19:18: Lactic Acid Level 1.16 Objective Exam Vital Signs Vital Signs Date Time Temp Pulse Resp B/P (MAP) Pulse Ox O2 Delivery O2 Flow Rate FiO2 01/20/19 14:00 67 18 167/86 99 Room Air 01/20/19 09:44 96.4 Capillary Refill : Less Than 3 Seconds General Appearance: No Apparent Distress, WD/WN, Chronically ill HEENT: PERRL/EOMI, Normal ENT Inspection, Pharynx Normal, Moist Mucous Membranes Neck: Full Range of Motion, Normal Inspection, Non Tender Respiratory: Chest Non Tender, Lungs Clear, Normal Breath Sounds, No Accessory Muscle Use, No Respiratory Distress Cardiovascular: Regular Rate, Rhythm, No Edema, No Gallop, No JVD, No Murmur, Normal Peripheral Pulses Gastrointestinal: Normal Bowel Sounds, No Organomegaly, No Pulsatile Mass, Non Tender, Soft Back: Normal Inspection, No CVA Tenderness, No Vertebral Tenderness Extremity: Normal Capillary Refill, Normal Inspection, Normal Range of Motion, Non Tender, No Calf Tenderness, No Pedal Edema Neurologic/Psychiatric: Alert, Oriented x3, No Motor/Sensory Deficits, Normal Mood/Affect Skin: Normal Color, Warm/Dry Lymphatic: No Adenopathy Results/Procedures Lab Laboratory Tests 01/20/19 05:00 Patient resulted labs reviewed. Diagnosis/Problems Diagnosis/Problems (1) Chest pain Status: Acute Qualifiers: Chest pain type: unspecified Qualified Codes: R07.9 - Chest pain, unspecified (2) Hyponatremia Status: Acute (3) Acute renal insufficiency Status: Acute (4) Medical non-compliance Status: Chronic (5) Peripheral neuropathy Status: Chronic Qualifiers: Peripheral neuropathy type: polyneuropathy, unspecified Qualified Codes: G62.9 - Polyneuropathy, unspecified (6) Chronic pain Status: Chronic Qualifiers: Chronic pain type: other chronic pain Qualified Codes: G89.29 - Other chronic pain (7) Uncontrolled diabetes mellitus Status: Chronic (8) Intractable nausea and vomiting Status: Acute (9) Smoker Status: Chronic (10) Hx of coronary artery disease Status: Chronic Clinical Quality Measures AMI/AHF: ASA po Prior to arrival: Yes (324 PER EMS) DVT/VTE Risk/Contraindication: Risk Factor Score Per Nursin RFS Level Per Nursing on Admit: 2=Moderate AZEEM MELVIN DO Jan 20, 2019 10:33
[2019-01-20] MEDS ORDERED: METO-370 PO (13:15)
--- NOTE | 2019-01-20 13:30 | Discharge Summary-Hospitalist ---
Diagnosis/Chief Complaint Date of Admission Jan 18, 2019 at 21:40 Date of Discharge Discharge Date: Jan 20, 2019 Admission Diagnosis Assessment: Chest pain DM brittle Multiple DKA's in the past Yeast esophagitis in the past s/p EGD per Dr Rubin Chronic pain issues HTN HLP Plan: Monitor pain issues Cardiac cath tomorrow Home meds Pain management Discharge Diagnosis (1) Chest pain Status: Acute (2) Hyponatremia Status: Acute (3) Acute renal insufficiency Status: Acute (4) Medical non-compliance Status: Chronic (5) Peripheral neuropathy Status: Chronic (6) Chronic pain Status: Chronic (7) Uncontrolled diabetes mellitus Status: Chronic (8) Intractable nausea and vomiting Status: Acute (9) Smoker Status: Chronic (10) Hx of coronary artery disease Status: Chronic Discharge Summary Discharge Physical Exam Allergies: Coded Allergies: ketorolac (Verified Allergy, Severe, ANAPHYLAXIS, PT TAKES ASA AT HOME, 11/23/18) ondansetron (Verified Allergy, Intermediate, RASH, 11/23/18) RASH/ HIVES exenatide (Verified Allergy, Unknown, NAUSEA, 11/23/18) NON STOP VOMITING latex (Verified Allergy, Unknown, RASH, 11/23/18) metoclopramide (Verified Allergy, Unknown, RESTLESS LEGS, 11/23/18) Vitals & I&Os Vital Signs Date Time Temp Pulse Resp B/P (MAP) Pulse Ox O2 Delivery O2 Flow Rate FiO2 01/20/19 14:00 67 18 167/86 99 Room Air 01/20/19 09:44 96.4 General Appearance: No Apparent Distress, WD/WN, Chronically ill HEENT: PERRL/EOMI, Normal ENT Inspection, Pharynx Normal, Moist Mucous Membranes Respiratory: Chest Non Tender, Lungs Clear, Normal Breath Sounds, No Accessory Muscle Use, No Respiratory Distress Cardiovascular: Regular Rate, Rhythm, No Edema, No Gallop, No JVD, No Murmur, Normal Peripheral Pulses Gastrointestinal: Normal Bowel Sounds, No Organomegaly, No Pulsatile Mass, Non Tender, Soft Extremity: Normal Capillary Refill, Normal Inspection, Normal Range of Motion, Non Tender, No Calf Tenderness, No Pedal Edema Skin: Normal Color, Warm/Dry Neurologic/Psychiatric: Alert, Oriented x3, No Motor/Sensory Deficits, Normal Mood/Affect Hospital Course Was the Problem List Reviewed?: Yes Had a cardiac catheterization today. Always very sensitive to pain. Constantly asking for pain medication. Overall blood sugars are in good control. Will get out of bed when she is able to after the cardiac catheterization protocol. Patient underwent cath without stent placement and was deemed stable to DC. Labs (last 24 hrs) Laboratory Tests 01/19/19 18:35: Glucometer 179H 01/20/19 00:00: Glucometer 234H 01/20/19 05:00: White Blood Count 7.8, Red Blood Count 3.59L, Hemoglobin 10.6L, Hematocrit 32L, Mean Corpuscular Volume 89, Mean Corpuscular Hemoglobin 30, Mean Corpuscular Hemoglobin Concent 33, Red Cell Distribution Width 13.7, Platelet Count 219, Mean Platelet Volume 10.4, Neutrophils (%) (Auto) 41L, Lymphocytes (%) (Auto) 47H, Monocytes (%) (Auto) 6, Eosinophils (%) (Auto) 5, Basophils (%) (Auto) 1, Neutrophils # (Auto) 3.2, Lymphocytes # (Auto) 3.7, Monocytes # (Auto) 0.4, Eosinophils # (Auto) 0.4H, Basophils # (Auto) 0.1, Prothrombin Time 14.4, INR Comment 1.1, Activated Partial Thromboplast Time 27, Sodium Level 139, Potassium Level 3.6, Chloride Level 112H, Carbon Dioxide Level 19L, Anion Gap 8 , Blood Urea Nitrogen 6L, Creatinine 0.75, Estimat Glomerular Filtration Rate > 60, BUN/Creatinine Ratio 8, Glucose Level 198H, Calcium Level 8.4L, Corrected Calcium 9.1, Magnesium Level 1.6L, Total Bilirubin 0.3, Aspartate Amino Transf ( AST/SGOT) 13, Alanine Aminotransferase (ALT/SGPT) 9, Alkaline Phosphatase 65, Total Protein 5.3L, Albumin 3.1L 01/20/19 05:17: Glucometer 202H 01/20/19 11:25: Glucometer 262H Microbiology 01/18/19 Blood Culture - Preliminary, Resulted No growth 01/18/19 Stool Culture - Preliminary, Resulted Culture In Progress 01/18/19 Influenza Types A,B Antigen (RACHELL) - Final, Complete Patient resulted labs reviewed. Pending Labs Laboratory Tests 01/20/19 11:25: Glucometer 262 Discussion & Recommendations Discharge Planning: <30 minutes discharge planning Discharge Home Medications: Active Scripts Active Metoprolol Succinate 50 Mg Tab.er.24h 50 Mg PO DAILY Reported Melatonin 5 Mg Capsule 5 Mg PO HS PRN Humalog Kwikpen (Insulin Lispro) 100 Unit/1 Ml Insuln.pen SQ TIDAC LAST FILLED MARCH 2018 Levemir Flextouch (Insulin Detemir) 100 Unit/1 Ml Insuln.pen 30 Unit SQ DAILY LAST FILLED AUGUST 2018 Amlodipine Besylate 10 Mg Tablet 5 Mg PO DAILY LAST FILLED #30 JUL 2018 Mirtazapine 15 Mg Tablet 15 Mg PO HS Omeprazole 20 Mg Capsule.dr 20 Mg PO DAILY Gabapentin 800 Mg Tablet 800 Mg PO DAILY PRN Oxycodone HCl 10 Mg Tablet 10 Mg PO DAILY Gabapentin 800 Mg Tablet 1,600 Mg PO HS TAKES 2 (800MG) TABLETS Tradjenta (Linagliptin) 5 Mg Tablet 5 Mg PO DAILY Atorvastatin Calcium 40 Mg Tablet 40 Mg PO HS LAST FILLED #30 10-11-18 Aspirin EC (Aspirin) 81 Mg Tablet.dr 81 Mg PO DAILY Oxycodone-Acetaminophen 10-325 (Oxycodone HCl/Acetaminophen) 1 Each Tablet 1 Tab PO Q4H PRN Instructions to patient/family Please see electronic discharge instructions given to patient. Clinical Quality Measures AMI/AHF: ASA po Prior to arrival: Yes (324 PER EMS) DVT/VTE Risk/Contraindication: Risk Factor Score Per Nursin RFS Level Per Nursing on Admit: 2=Moderate Problem Qualifiers (1) Chest pain: Chest pain type: unspecified Qualified Codes: R07.9 - Chest pain, unspecified (2) Peripheral neuropathy: Peripheral neuropathy type: polyneuropathy, unspecified Qualified Codes: G62.9 - Polyneuropathy, unspecified (3) Chronic pain: Chronic pain type: other chronic pain Qualified Codes: G89.29 - Other chronic pain AZEEM MELVIN DO Jan 20, 2019 13:30
--- NOTE | 2019-01-20 14:47 | CARDIAC CATHETERIZATION ---
DATE OF SERVICE: 01/18/2019 CARDIAC CATHETERIZATION REPORT The patient is a 58-year-old lady with known coronary artery disease who has had stenting into the mid left anterior descending artery a few years ago. This is known to be Resolute Integrity 2.5 x 14 mm stent. She presents with chest discomfort and felt that the discomfort was similar to her previous unstable angina. Cardiac catheterization was carried out today, after having obtained an informed consent. PROCEDURE: She was brought to the cardiac catheterization laboratory in a fasting state. Right groin was prepared and draped in usual sterile fashion. Lidocaine 1% with local anesthesia. Modified Seldinger technique was used to advance a 5-[place] sheath in right femoral artery, 5-[place] JL4 catheter for left coronary angiography, a 5-[place] JR4 catheter for right coronary angiography, a 5-[place] pigtail catheter was used for left heart catheterization and left ventricular angiography. FRACTIONAL FLOW RESERVE MEASUREMENT IN THE LEFT ANTERIOR DESCENDING ARTERY: Following completion of the diagnostic coronary angiography, we carried out fractional flow reserve measurement in the mid left anterior descending artery, where the patient had 50 to 60% stenosis just following the distal edge of the previously placed stent. We exchanged the sheath over a wire for a 6-[place] Citizen sheath. We gave 6000 units of intravenous heparin. We used a 6-[place] JL4 guide catheter. We advanced a pressure wire across the lesion and the tip was placed in the distal vessel. We gave 140 mcg per kilogram per minute of adenosine for 2 minutes and 40 seconds. Fractional flow reserve was 0.86, indicating that the lesion was hemodynamically insignificant. The equipment was removed. Angiography of the left coronary system was repeated. There had been no change in the coronary system following the fractional flow reserve measurement procedure. The guide catheter was removed. Angiography of the right femoral artery was carried out through the sheath. Mynx was used to achieve hemostasis. She tolerated the procedure well. HEMODYNAMICS: Left ventricular end-diastolic pressure following coronary angiography was 15 mmHg. There is no significant pressure gradient on pullback across the aortic valve. Ascending aortic pressure was 178/88 with a mean of 127 mmHg. CORONARY ANGIOGRAPHY: Diffuse coronary calcification is present. Left main coronary artery does not exhibit significant disease. Left anterior descending artery had a patent stent in its mid portion and there was approximately 50% stenosis, following the distal edge of the stent. Fractional flow reserve across this lesion is 0.86, indicating hemodynamic nonsignificance. The first diagonal has approximately 50% mid vessel stenosis. The left circumflex artery has approximately 50% stenosis and a sub-branch of a distal obtuse marginal branch. Right coronary artery is dominant and has 50% proximal and 50% distal stenoses. CONCLUSIONS: 1. Coronary artery disease, moderate, hemodynamically nonsignificant, patent 2.5 x 14 mm stent in the mid left anterior descending, left ventricular end-diastolic pressure 15 mmHg, and left ventricular ejection fraction 65%. DISCUSSION AND RECOMMENDATIONS: Based on results of the study, it appears appropriate to continue a conservative approach. Focus of cardiovascular management is on risk factor modification. This was emphasized with her. Risk factor modification was reviewed in detail. She has been advised to quit smoking immediately and completely. Good blood pressure control is advised. Good diabetic control is advised. Outpatient followup is advised. Cardiac management is with aspirin, beta ruth ann, and statin. Job ID: [id number] DocumentID: [id number] Dictated Date: 01/20/2019 09:39:56 Drywall Application Supervisor Date: 01/20/2019 14:47:34 Dictated By: RICH FELIX MD, MA, FACP, FACC,
[2019-01-21] MEDS ORDERED: meTOproloL SUCCINATE 50 MG (TOPROL XL) TAB PO SCH (09:00)
[2019-01-21] MEDS ORDERED: ASPIRIN 81 MG CHEW (CHILDREN'S ASA) PO SCH (09:00)
--- NOTE | 2019-01-23 09:53 | NUR ---
CM/SS. Followed up today to coordinate a resume of patient's established [facility] services with [facility]. Faxed clinical information to complete referral and updated staff/Lesley.
== END 2019-01-20 14:00 | disposition home or self-care (01) ==
LOC: EDUNIT# 19:09 → ER 19:10 → 4TH 21:40
PROVIDERS: ADMIT Internal Medicine; ATTEND Internal Medicine
DX: I25.10 Atherosclerotic heart disease of native coronary artery without angina pectoris (principal); E87.1 Hypo-osmolality and hyponatremia; E11.42 Type 2 diabetes mellitus with diabetic polyneuropathy; G89.29 Other chronic pain; I12.9 Hypertensive chronic kidney disease with stage 1 through stage 4 chronic kidney disease, or unspecified chronic kidney disease; E78.5 Hyperlipidemia, unspecified; M54.9 Dorsalgia, unspecified; L40.50 Arthropathic psoriasis, unspecified; H91.90 Unspecified hearing loss, unspecified ear; G47.33 Obstructive sleep apnea (adult) (pediatric); I77.89 Other specified disorders of arteries and arterioles; N18.9 Chronic kidney disease, unspecified; F11.90 Opioid use, unspecified, uncomplicated; K21.0 Gastro-esophageal reflux disease with esophagitis; E83.42 Hypomagnesemia; E11.65 Type 2 diabetes mellitus with hyperglycemia; K52.9 Noninfective gastroenteritis and colitis, unspecified; Z87.891 Personal history of nicotine dependence; Z91.19 Patient's noncompliance with other medical treatment and regimen; Z79.4 Long term (current) use of insulin; Z79.899 Other long term (current) drug therapy; Z79.82 Long term (current) use of aspirin
CPT/HCPCS: 36415; 51701; 71045; 71250; 74176; 80053; 80061; 80306; 81000; 82150; 82550; 82553; 82962; 83605; 83690; 83735; 83874; 83880; 84484; 85025; 85610; 85730; 87015; 87040; 87045; 87046; 87081; 87324; 87449; 87804; 87899; 90471; 93005; 93041; 93306; 93458; 96361; 96365; 96366; 96375

== ENCOUNTER 2019-02-15 14:34 | Emergency (ER) | payer MEDICARE ==
[~2019-02-15] VITALS: Ht 152.4 cm; Wt 63.5 kg
[~2019-02-15 14:34] MED LIST changes: +METO-370 PO; +MIRT-47 PO; -MIRT15TA8 PO
[2019-02-15 14:56] LABS: BASOPHILS # (AUTO) 0.1 10^3/uL (0.0-0.1); BASOPHILS % (AUTO) 1 % (0-10); EOSINOPHILS # (AUTO) 0.4 10^3/uL (0.0-0.3); EOSINOPHILS % (AUTO) 3 % (0-10); HEMATOCRIT 37 % (35-52); HEMOGLOBIN 12.1 G/DL (11.5-16.0); LYMPHOCYTES # (AUTO) 2.3 X 10^3 (1.0-4.0); LYMPHOCYTES % (AUTO) 17 % (12-44); MEAN CORPUSCULAR HEMOGLOBIN 30 PG (25-34); MEAN CORPUSCULAR HGB CONC 33 G/DL (32-36); MEAN CORPUSCULAR VOLUME 90 FL (80-99); MEAN PLATELET VOLUME 10.2 FL (7.4-10.4); MONOCYTES # (AUTO) 0.5 X 10^3 (0.0-1.0); MONOCYTES % (AUTO) 3 % (0-12); NEUTROPHILS # (AUTO) 10.4 X 10^3 (1.8-7.8); NEUTROPHILS % (AUTO) 76 % (42-75); PLATELET COUNT 299 10^3/uL (130-400); WHITE BLOOD COUNT 13.7 10^3/uL (4.3-11.0)
--- NOTE | 2019-02-15 14:57 | NUR ---
PT DENIES CHANGE IN MEDS
[2019-02-15] MEDS ORDERED: PROMETHAZINE INJ 25 MG/ML (PHENERGAN) AMP IVP ONE (15:00)
[2019-02-15] MEDS ORDERED: NS IV 1000 ML 1,000 ML IV SCH ×2 (15:00→15:30)
[2019-02-15 15:18] LABS: ALBUMIN 3.6 GM/DL (3.2-4.5); BILIRUBIN,TOTAL 0.6 MG/DL (0.1-1.0); CALCIUM 8.9 MG/DL (8.5-10.1); CREATININE SERUM 1.41 MG/DL (0.60-1.30); POTASSIUM 4.5 MMOL/L (3.6-5.0); TOTAL PROTEIN 6.9 GM/DL (6.4-8.2)
--- NOTE | 2019-02-15 15:22 | ED General ---
General Chief Complaint: Glucose Problems Stated Complaint: HIGH BLOOD SUGAR Nursing Triage Note: PT STATES HAS BEEN SICK FOR 4 DAYS, STATES FSBS STATES HIGH, NOT ABLE TO GET DOWN. PT STATES HAS HAD N/V/D Nursing Sepsis Screen: No Definite Risk Source of Information: Patient Exam Limitations: No Limitations History of Present Illness Date Seen by Provider: Feb 15, 2019 Time Seen by Provider: 14:38 Allergies and Home Medications Allergies Coded Allergies: ketorolac (Verified Allergy, Severe, ANAPHYLAXIS, PT TAKES ASA AT HOME, 11/23/18) ondansetron (Verified Allergy, Intermediate, RASH, 11/23/18) RASH/ HIVES exenatide (Verified Allergy, Unknown, NAUSEA, 11/23/18) NON STOP VOMITING latex (Verified Allergy, Unknown, RASH, 11/23/18) metoclopramide (Verified Allergy, Unknown, RESTLESS LEGS, 11/23/18) Home Medications Amlodipine Besylate 10 Mg Tablet, 5 MG PO DAILY, (Reported) LAST FILLED #30 JUL 2018 Aspirin 81 Mg Tablet.dr, 81 MG PO DAILY, (Reported) Atorvastatin Calcium 40 Mg Tablet, 40 MG PO HS, (Reported) LAST FILLED #30 10-11-18 Gabapentin 800 Mg Tablet, 1,600 MG PO HS, (Reported) TAKES 2 (800MG) TABLETS Gabapentin 800 Mg Tablet, 800 MG PO DAILY PRN for NERVE PAIN, (Reported) Insulin Detemir 100 Unit/1 Ml Insuln.pen, 30 UNIT SQ DAILY, (Reported) LAST FILLED AUGUST 2018 Insulin Lispro 100 Unit/1 Ml Insuln.pen, SQ TIDAC, (Reported) LAST FILLED MARCH 2018 Linagliptin 5 Mg Tablet, 5 MG PO DAILY, (Reported) Melatonin 5 Mg Capsule, 5 MG PO HS PRN for SLEEP, (Reported) Metoprolol Succinate 50 Mg Tab.er.24h, 50 MG PO DAILY Prescribed by: SHIRA BOOTHE on 01/20/19 1315 Mirtazapine 15 Mg Tablet, 15 MG PO HS, (Reported) Omeprazole 20 Mg Capsule.dr, 20 MG PO DAILY, (Reported) Oxycodone HCl 10 Mg Tablet, 10 MG PO DAILY, (Reported) Oxycodone HCl/Acetaminophen 1 Each Tablet, 1 TAB PO Q4H PRN for PAIN-MODERATE, ( Reported) Past Lyivtkn-Frqxgq-Tzudye Hx Patient Social History Alcohol Use: Denies Use Alcohol Beverage of Choice: Wine Recreational Drug Use: No Smoking Status: Current Everyday Smoker Type Used: Cigars Former Smoker, Quit: Nov 10, 2017 2nd Hand Smoke Exposure: No Recent Foreign Travel: No Contact w/Someone Who Travel: No Recent Infectious Disease Expo: No Recent Hopitalizations: No Immunizations Up To Date Tetanus Booster (TDap): Unknown PED Vaccines UTD: No Date of Pneumonia Vaccine: Dec 12, 2013 Date of Influenza Vaccine: Sep 22, 2018 Seasonal Allergies Seasonal Allergies: Yes Past Medical History Surgeries: Yes Cardiac, Coronary Stent, Ear Surgery, Gallbladder, Orthopedic, Renal Respiratory: Yes (HX OF TOBACCO USE--1 PPD, REPORTEDLY QUIT 11/2017) Chronic Bronchitis, Sleep Apnea Currently Using CPAP: Yes (AT HOME) Currently Using BIPAP: No Cardiac: Yes (CARDIAC STENTX 1; DVT'S IN ARMS) Chronic Edema/Swelling, Coronary Artery Disease, Deep Vein Thrombosis, High Cholesterol, Hypertension Neurological: Yes (NEUROPATHY IN HANDS AND FEET) Headaches /Migraines, Neuropathy 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 Disorders: No 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 Disorders: Denies 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 Sexually Transmitted Disease: No HIV/AIDS: No Genitourinary: Yes Bladder Infection, Kidney Stones, Renal Failure Gastrointestinal: Yes Gastroesophageal Reflux, Diverticulosis, Esophagitis, Hiatal Hernia, Irritable Bowel Musculoskeletal: Yes Degenerate Disk Disease, Fibromyalgia, Chronic Back Pain Endocrine: Yes Diabetes, Insulin dep HEENT: Yes (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; POOR DENTITION) Chronic Ear Infection Loss of Vision: Denies Hearing Impairment: Hard of Hearing Cancer: No Psychosocial: Yes Anxiety Integumentary: Yes Psoriasis Blood Disorders: No Adverse Reaction/Blood Tranf: No Family Medical History Cancer of mouth 19 FATHER ( of esophogeal cancer.) Cardiovascular disease 19 MOTHER G8 BROTHER Completed stroke 19 FATHER G8 BROTHER Diabetes mellitus G8 BROTHER FH: lung cancer 19 MOTHER Hypertension 19 FATHER Kidney disease 19 FATHER Myocardial infarction 19 MOTHER G8 BROTHER Respiratory disorder No Family History of: AIDS CAD Over 55 Years Old, CVA, Diabetes, GI Disease, Renal Disease Physical Exam Vital Signs Vital Signs - First Documented 02/15/19 14:35 Temp 96.3 Pulse 74 Resp 18 B/P (MAP) 147/88 (107) Pulse Ox 97 Capillary Refill : Less Than 3 Seconds Height, Weight, BMI Height: 5'0" Weight: 140lbs. 6.0oz. [id number]; 26.8 BMI Method:Stated Progress/Results/Core Measures Suspected Sepsis Recent Fever Within 48 Hours: No Infection Criteria Present: None New/Unexplained Altered Menta: No Sepsis Screen: No Definite Risk SIRS Temperature:96.3 Pulse: 74 Respiratory Rate: 18 Laboratory Tests 02/15/19 14:45: White Blood Count 13.7H Blood Pressure 147 /88 Mean: 107 Laboratory Tests 02/15/19 14:45: Creatinine 1.41H, Platelet Count 299, Total Bilirubin 0.6 02/15/19 17:29: Creatinine 1.02 Results/Orders Lab Results Laboratory Tests Test 02/15/19 14:45 02/15/19 14:46 02/15/19 15:50 02/15/19 16:10 Range/Units White Blood Count 13.7 H 4.3-11.0 10^3/uL Red Blood Count 4.08 L 4.35-5.85 10^6/uL Hemoglobin 12.1 11.5-16.0 G/DL Hematocrit 37 35-52 % Mean Corpuscular Volume 90 80-99 FL Mean Corpuscular Hemoglobin 30 25-34 PG Mean Corpuscular Hemoglobin Concent 33 32-36 G/DL Red Cell Distribution Width 14.0 10.0-14.5 % Platelet Count 299 130-400 10^3/uL Mean Platelet Volume 10.2 7.4-10.4 FL Neutrophils (%) (Auto) 76 H 42-75 % Lymphocytes (%) (Auto) 17 12-44 % Monocytes (%) (Auto) 3 0-12 % Eosinophils (%) (Auto) 3 0-10 % Basophils (%) (Auto) 1 0-10 % Neutrophils # (Auto) 10.4 H 1.8-7.8 X 10^3 Lymphocytes # (Auto) 2.3 1.0-4.0 X 10^3 Monocytes # (Auto) 0.5 0.0-1.0 X 10^3 Eosinophils # (Auto) 0.4 H 0.0-0.3 10^3/uL Basophils # (Auto) 0.1 0.0-0.1 10^3/uL Sodium Level 123 *L 135-145 MMOL/L Potassium Level 4.5 3.6-5.0 MMOL/L Chloride Level 88 L 98-107 MMOL/L Carbon Dioxide Level 20 L 21-32 MMOL/L Anion Gap 15 H 5-14 MMOL/L Blood Urea Nitrogen 14 7-18 MG/DL Creatinine 1.41 H 0.60-1.30 MG/DL Estimat Glomerular Filtration Rate 38 BUN/Creatinine Ratio 10 Glucose Level 810 *H 70-105 MG/DL Calcium Level 8.9 8.5-10.1 MG/DL Corrected Calcium 9.2 8.5-10.1 MG/DL Magnesium Level 1.7 L 1.8-2.4 MG/DL Total Bilirubin 0.6 0.1-1.0 MG/DL Aspartate Amino Transf (AST/SGOT) 13 5-34 U/L Alanine Aminotransferase (ALT/SGPT) 17 0-55 U/L Alkaline Phosphatase 95 40-136 U/L Total Protein 6.9 6.4-8.2 GM/DL Albumin 3.6 3.2-4.5 GM/DL Amylase Level 35 25-125 U/L Lipase 33 8-78 U/L Glucometer > 600 *H > 600 *H 70-110 MG/DL Blood Gas Puncture Site RIGHT RADIAL Blood Gas Patient Temperature 96.3 Arterial Blood pH 7.41 7.37-7.43 Arterial Blood Partial Pressure CO2 31 L 35-45 MMHG Arterial Blood Partial Pressure O2 78 L 79-93 MMHG Arterial Blood HCO3 20 L 23-27 MMOL/L Arterial Blood Total CO2 20.5 L 21.0-31.0 MMOL/L Arterial Blood Oxygen Saturation 98 94-100 % Arterial Blood Base Excess -4.6 L -2.5-2.5 MMOL/L Antonio Test POSITIVE Blood Gas Ventilator Setting NO Blood Gas Inspired Oxygen ROOM AIR Test 02/15/19 16:15 02/15/19 16:49 02/15/19 17:26 02/15/19 17:29 Range/Units Urine Color YELLOW Urine Clarity CLEAR Urine pH 6.5 5-9 Urine Specific [place] 1.010 L 1.016-1.022 Urine Protein 1+ H NEGATIVE Urine Glucose (UA) 4+ H NEGATIVE Urine Ketones NEGATIVE NEGATIVE Urine Nitrite NEGATIVE NEGATIVE Urine Bilirubin NEGATIVE NEGATIVE Urine Urobilinogen NORMAL NORMAL MG/DL Urine Leukocyte Esterase NEGATIVE NEGATIVE Urine RBC (Auto) NEGATIVE NEGATIVE Urine RBC NONE /HPF Urine WBC NONE /HPF Urine Squamous Epithelial Cells RARE /HPF Urine Crystals NONE /LPF Urine Bacteria NEGATIVE /HPF Urine Casts NONE /LPF Urine Mucus NEGATIVE /LPF Urine Culture Indicated NO Glucometer 501 *H 486 *H 70-110 MG/DL Sodium Level 133 L 135-145 MMOL/L Potassium Level 3.7 3.6-5.0 MMOL/L Chloride Level 100 98-107 MMOL/L Carbon Dioxide Level 17 L 21-32 MMOL/L Anion Gap 16 H 5-14 MMOL/L Blood Urea Nitrogen 12 7-18 MG/DL Creatinine 1.02 0.60-1.30 MG/DL Estimat Glomerular Filtration Rate 55 BUN/Creatinine Ratio 12 Calcium Level 8.5 8.5-10.1 MG/DL My Orders Orders - ZELALEM EVANS Comprehensive Metabolic Panel (02/15/19 14:43) Lipase (02/15/19 14:43) Amylase (02/15/19 14:43) Ua Culture If Indicated (02/15/19 14:43) Saline Lock/Iv-Start (02/15/19 14:43) Cbc With Automated Diff (02/15/19 14:43) Magnesium (02/15/19 14:43) Ns Iv 1000 Ml (Sodium Chloride 0.9%) (02/15/19 15:00) Promethazine Injection (Phenergan Injec (02/15/19 15:00) Insulin (Regular) Human (Humulin R (Per (02/15/19 15:30) Ns Iv 1000 Ml (Sodium Chloride 0.9%) (02/15/19 15:30) Arterial Blood Gas (02/15/19 15:50) Diphenhydramine Injection (Benadryl Inje (02/15/19 15:49) Insulin (Regular) Human (Humulin R (Per (02/15/19 16:30) Hydrocodone/Apap 10/325 Tablet (Lortab 1 (02/15/19 17:00) Oxycodone/Apap 5/325mg Tablet (Percocet (02/15/19 17:15) Basic Metabolic Panel (02/15/19 17:26) Arterial Blood Draw (02/15/19 17:37) Medications Given in ED Current Medications Medications Dose Ordered Sig/Jackie Route Start Time Stop Time Status Last Admin Dose Admin Diphenhydramine HCl 50 mg STK-MED ONCE .ROUTE 02/15/19 15:49 02/15/19 15:51 DC 02/15/19 15:52 50 MG Insulin Human Regular 10 unit ONCE ONCE IV 02/15/19 15:30 02/15/19 15:31 DC 02/15/19 15:40 10 UNIT Insulin Human Regular 10 unit ONCE ONCE IV 02/15/19 16:30 02/15/19 16:31 DC 02/15/19 16:30 10 UNIT Oxycodone/ Acetaminophen 2 tab ONCE ONCE PO 02/15/19 17:15 02/15/19 17:16 DC 02/15/19 17:08 2 TAB Promethazine HCl 25 mg ONCE ONCE IVP 02/15/19 15:00 02/15/19 15:01 DC 02/15/19 15:00 25 MG Vital Signs/I&O 02/15/19 14:35 Temp 96.3 Pulse 74 Resp 18 B/P (MAP) 147/88 (107) Pulse Ox 97 Capillary Refill : Less Than 3 Seconds Blood Pressure Mean: 107 Departure Impression Primary Impression: Mild Diabetic Ketoacidosis Disposition: HOME, SELF-CARE Condition: Stable/Unchanged Departure-Patient Inst. Decision time for Depature: 17:26 Referrals: [facility] (PCP/Family) Primary Care Physician Patient Instructions: Diabetes Type 1, Adult (DC) Add. Discharge Instructions: Take medications as previously prescribed. Keep an eye on your blood sugars by checking it at least 4 times a day. Dose of your insulin appropriately. Call tomorrow morning to schedule an appointment with [facility] for follow- up. You need to be seen within the week. Return back to the emergency room if symptoms should persist, worsening symptoms, or any other concerns as needed. All discharge instructions reviewed with patient and/or family. Voiced understanding. ZELALEM EVANS Feb 15, 2019 15:22
--- NOTE | 2019-02-15 15:22 | NUR ---
NA [id number] GLUECOSE [id number] REPORTED TO Lashay MARCOS
[2019-02-15] MEDS ORDERED: inSUlin (REGULAR) HUMAN 1 UNIT/0.01 ML (CHARGE PER UNIT) IV ONE ×2 (15:30→16:30)
[2019-02-15] MEDS ORDERED: diphenhydrAMINE 50 MG/ML INJ (BENADRYL) ONE (15:49)
[2019-02-15 15:58] LABS: ABG BASE EXCESS -4.6 MMOL/L (-2.5-2.5); ABG OXYGEN SATURATION 98 % (94-100); ABG PCO2 31 MMHG (35-45); ABG PH 7.41 (7.37-7.43); ABG PO2 78 MMHG (79-93); ABG TCO2 20.5 MMOL/L (21.0-31.0)
[2019-02-15 15:59] LABS: ALLENS TEST POSITIVE; INSPIRED O2 ROOM AIR; PATIENT TEMP 96.3; VENTILATOR NO
[2019-02-15 16:24] LABS: BILIRUBIN,URINE NEGATIVE (NEGATIVE); CLARITY,URINE CLEAR; COLOR,URINE YELLOW; GLUCOSE, URINE (UA) 4+ (NEGATIVE); KETONES,URINE NEGATIVE (NEGATIVE); LEUKOCYTE ESTERASE ,URINE NEGATIVE (NEGATIVE); NITRITE,URINE NEGATIVE (NEGATIVE); PH,URINE 6.5 (5-9); PROTEIN,URINE 1+ (NEGATIVE); UROBILINOGEN,URINE NORMAL (NORMAL)
[2019-02-15 16:32] LABS: BACTERIA,URINE NEGATIVE /HPF; SQUAMOUS EPITHELIAL CELL,UR RARE /HPF
[2019-02-15] MEDS: HYDROcodone/APAP 10 MG/325 MG (LORTAB) TAB PO ONE ×2 (17:03→17:06)
[2019-02-15] MEDS ORDERED: oxyCODONE/APAP 5/325MG (PERCOCET 5) TABLET PO ONE (17:15)
--- NOTE | 2019-02-15 17:27 | NUR ---
FSBS 486
[2019-02-15 17:56] LABS: CALCIUM 8.5 MG/DL (8.5-10.1); CREATININE SERUM 1.02 MG/DL (0.60-1.30); POTASSIUM 3.7 MMOL/L (3.6-5.0)
[2019-02-15 18:06] VITALS: BP 136/64
== END 2019-02-15 18:06 | disposition home or self-care (01) ==
LOC: ER 14:34 → EDUNIT# 14:34 → ER 18:06
DX: E11.10 Type 2 diabetes mellitus with ketoacidosis without coma (principal); J42 Unspecified chronic bronchitis; I25.10 Atherosclerotic heart disease of native coronary artery without angina pectoris; I10 Essential (primary) hypertension; E78.00 Pure hypercholesterolemia, unspecified; G43.909 Migraine, unspecified, not intractable, without status migrainosus; E11.40 Type 2 diabetes mellitus with diabetic neuropathy, unspecified; F17.290 Nicotine dependence, other tobacco product, uncomplicated; K58.9 Irritable bowel syndrome, unspecified; K21.0 Gastro-esophageal reflux disease with esophagitis; F41.9 Anxiety disorder, unspecified; Z87.19 Personal history of other diseases of the digestive system; Z87.442 Personal history of urinary calculi; Z86.718 Personal history of other venous thrombosis and embolism; Z95.5 Presence of coronary angioplasty implant and graft; Z88.6 Allergy status to analgesic agent; Z88.8 Allergy status to other drugs, medicaments and biological substances; Z91.040 Latex allergy status; Z79.82 Long term (current) use of aspirin; Z79.4 Long term (current) use of insulin; Z82.49 Family history of ischemic heart disease and other diseases of the circulatory system; Z80.1 Family history of malignant neoplasm of trachea, bronchus and lung; Z80.0 Family history of malignant neoplasm of digestive organs
CPT/HCPCS: 36415; 36600; 80048; 80053; 81000; 82150; 82805; 82962; 83690; 83735; 85025

== ENCOUNTER 2019-02-16 21:11 | Emergency (ER) | payer MEDICARE ==
[~2019-02-16] VITALS: Ht 152.4 cm; Wt 63.7 kg
--- NOTE | 2019-02-16 21:19 | ED General ---
General Stated Complaint: SYNCOPE,DIZZY Source of Information: Patient, EMS Exam Limitations: No Limitations History of Present Illness Date Seen by Provider: Feb 16, 2019 Time Seen by Provider: 21:17 Initial Comments To ER with nausea vomiting and lightheadedness. She was seen here yesterday for the same thing. Hasn't checked her blood sugar today because she's felt too ill Timing/Duration: 1-2 Days Severity: Moderate Associated Systoms: Nausea/Vomiting Allergies and Home Medications Allergies Coded Allergies: ketorolac (Verified Allergy, Severe, ANAPHYLAXIS, PT TAKES ASA AT HOME, 11/23/18) ondansetron (Verified Allergy, Intermediate, RASH, 11/23/18) RASH/ HIVES exenatide (Verified Allergy, Unknown, NAUSEA, 11/23/18) NON STOP VOMITING latex (Verified Allergy, Unknown, RASH, 11/23/18) metoclopramide (Verified Allergy, Unknown, RESTLESS LEGS, 11/23/18) Home Medications Amlodipine Besylate 10 Mg Tablet, 5 MG PO DAILY, (Reported) LAST FILLED #21 AUG 2018 Aspirin 81 Mg Tablet.dr, 81 MG PO DAILY, (Reported) Atorvastatin Calcium 40 Mg Tablet, 40 MG PO HS, (Reported) LAST FILLED #30 10-11-18 Gabapentin 800 Mg Tablet, 1,600 MG PO HS, (Reported) TAKES 2 (800MG) TABLETS Gabapentin 800 Mg Tablet, 800 MG PO DAILY PRN for NERVE PAIN, (Reported) Insulin Detemir 100 Unit/1 Ml Insuln.pen, 30 UNIT SQ DAILY, (Reported) LAST FILLED AUGUST 2018 Insulin Lispro 100 Unit/1 Ml Insuln.pen, SQ TIDAC, (Reported) LAST FILLED MARCH 2018 Linagliptin 5 Mg Tablet, 5 MG PO DAILY, (Reported) Melatonin 5 Mg Capsule, 5 MG PO HS PRN for SLEEP, (Reported) Metoprolol Succinate 50 Mg Tab.er.24h, 50 MG PO DAILY Prescribed by: SHIRA BOOTHE on 01/20/19 1315 Mirtazapine 15 Mg Tablet, 15 MG PO HS, (Reported) Omeprazole 20 Mg Capsule.dr, 20 MG PO DAILY, (Reported) Oxycodone HCl 10 Mg Tablet, 10 MG PO DAILY, (Reported) Oxycodone HCl/Acetaminophen 1 Each Tablet, 1 TAB PO Q4H PRN for PAIN-MODERATE, ( Reported) Patient Home Medication List Home Medication List Reviewed: Yes Review of Systems Review of Systems Constitutional: see HPI EENTM: see HPI Respiratory: no symptoms reported Cardiovascular: no symptoms reported Gastrointestinal: nausea Genitourinary: no symptoms reported Musculoskeletal: no symptoms reported Skin: no symptoms reported Psychiatric/Neurological: No Symptoms Reported Hematologic/Lymphatic: No Symptoms Reported Past Ejnjusr-Sjqpyt-Vluoar Hx Patient Social History Alcohol Beverage of Choice: Wine Type Used: Cigars Former Smoker, Quit: Nov 10, 2017 2nd Hand Smoke Exposure: No Recent Foreign Travel: No Contact w/Someone Who Travel: No Recent Hopitalizations: No Immunizations Up To Date Tetanus Booster (TDap): Unknown PED Vaccines UTD: No Date of Pneumonia Vaccine: Dec 12, 2013 Date of Influenza Vaccine: Sep 22, 2018 Seasonal Allergies Seasonal Allergies: Yes Past Medical History Surgeries: Yes Cardiac, Coronary Stent, Ear Surgery, Gallbladder, Orthopedic, Renal Respiratory: Yes (HX OF TOBACCO USE--1 PPD, REPORTEDLY QUIT 11/2017) Chronic Bronchitis, Sleep Apnea Currently Using CPAP: Yes (AT HOME) Currently Using BIPAP: No Cardiac: Yes (CARDIAC STENTX 1; DVT'S IN ARMS) Chronic Edema/Swelling, Coronary Artery Disease, Deep Vein Thrombosis, High Cholesterol, Hypertension Neurological: Yes (NEUROPATHY IN HANDS AND FEET) Headaches /Migraines, Neuropathy 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 Disorders: No 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 Sexually Transmitted Disease: No HIV/AIDS: No Genitourinary: Yes Bladder Infection, Kidney Stones, Renal Failure Gastrointestinal: Yes Gastroesophageal Reflux, Diverticulosis, Esophagitis, Hiatal Hernia, Irritable Bowel Musculoskeletal: Yes Degenerate Disk Disease, Fibromyalgia, Chronic Back Pain Endocrine: Yes Diabetes, Insulin dep HEENT: Yes (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; POOR DENTITION) Chronic Ear Infection Loss of Vision: Denies Hearing Impairment: Hard of Hearing Cancer: No Psychosocial: Yes Anxiety Integumentary: Yes Psoriasis Blood Disorders: No Adverse Reaction/Blood Tranf: No Family Medical History Cancer of mouth 19 FATHER ( of esophogeal cancer.) Cardiovascular disease 19 MOTHER G8 BROTHER Completed stroke 19 FATHER G8 BROTHER Diabetes mellitus G8 BROTHER FH: lung cancer 19 MOTHER Hypertension 19 FATHER Kidney disease 19 FATHER Myocardial infarction 19 MOTHER G8 BROTHER Respiratory disorder No Family History of: AIDS CAD Over 55 Years Old, CVA, Diabetes, GI Disease, Renal Disease Physical Exam Vital Signs Capillary Refill : Height, Weight, BMI Height: 5'0" Weight: 140lbs. 6.0oz. [id number]; 26.8 BMI Method:Stated General Appearance: No Apparent Distress, WD/WN, Chronically ill Eyes: Bilateral Eye Normal Inspection, Bilateral Eye PERRL HEENT: PERRL/EOMI, TMs Normal Respiratory: No Accessory Muscle Use, No Respiratory Distress Cardiovascular: Normal Peripheral Pulses, Tachycardia Gastrointestinal: Normal Bowel Sounds, Non Tender, Soft Extremity: Normal Capillary Refill, Normal Inspection Neurologic/Psychiatric: Alert, Oriented x3, No Motor/Sensory Deficits Skin: Normal Color, Warm/Dry Progress/Results/Core Measures Suspected Sepsis SIRS Temperature: Pulse: Respiratory Rate: Laboratory Tests 02/16/19 21:15: Blood Pressure / Mean: Laboratory Tests 02/16/19 21:15: Results/Orders Lab Results Laboratory Tests Test 02/16/19 21:15 Range/Units My Orders Orders - JR MARIE APRN Cbc With Automated Diff (02/16/19 21:14) Comprehensive Metabolic Panel (02/16/19 21:14) Beta Hydroxybutyrate (02/16/19 21:14) Iv Heplock-Insert (Order) (02/16/19 21:14) Insulin (Regular) Human (Humulin R (Per (02/16/19 21:30) Ns Iv 1000 Ml (Sodium Chloride 0.9%) (02/16/19 21:30) Ua Culture If Indicated (02/16/19 21:22) Vital Signs/I&O Capillary Refill : Departure Impression Primary Impression: Uncontrolled diabetes mellitus Qualified Codes: E13.65 - Other specified diabetes mellitus with hyperglycemia Additional Impression: Medical non-compliance Disposition: 01 HOME, SELF-CARE Condition: Stable Departure-Patient Inst. Decision time for Depature: 21:22 Referrals: [facility] (PCP/Family) Primary Care Physician Patient Instructions: Diabetes Type 2 (DC) JR MARIE APRN Feb 16, 2019 21:19
[2019-02-16 21:23] LABS: BASOPHILS # (AUTO) 0.1 10^3/uL (0.0-0.1); BASOPHILS % (AUTO) 1 % (0-10); EOSINOPHILS # (AUTO) 0.4 10^3/uL (0.0-0.3); EOSINOPHILS % (AUTO) 3 % (0-10); HEMATOCRIT 33 % (35-52); HEMOGLOBIN 11.4 G/DL (11.5-16.0); LYMPHOCYTES # (AUTO) 3.1 X 10^3 (1.0-4.0); LYMPHOCYTES % (AUTO) 28 % (12-44); MEAN CORPUSCULAR HEMOGLOBIN 30 PG (25-34); MEAN CORPUSCULAR HGB CONC 34 G/DL (32-36); MEAN CORPUSCULAR VOLUME 88 FL (80-99); MEAN PLATELET VOLUME 10.3 FL (7.4-10.4); MONOCYTES # (AUTO) 0.6 X 10^3 (0.0-1.0); MONOCYTES % (AUTO) 6 % (0-12); NEUTROPHILS # (AUTO) 7.1 X 10^3 (1.8-7.8); NEUTROPHILS % (AUTO) 63 % (42-75); PLATELET COUNT 271 10^3/uL (130-400); RED CELL DISTRIBUTION WIDTH 13.9 % (10.0-14.5); WHITE BLOOD COUNT 11.3 10^3/uL (4.3-11.0)
[2019-02-16] MEDS ORDERED: inSUlin (REGULAR) HUMAN 1 UNIT/0.01 ML (CHARGE PER UNIT) IV ONE (21:30)
[2019-02-16] MEDS ORDERED: NS IV 1000 ML 1,000 ML IV SCH ×2 (21:30→22:00)
[2019-02-16 21:49] LABS: ALBUMIN 3.2 GM/DL (3.2-4.5); BILIRUBIN,TOTAL 0.3 MG/DL (0.1-1.0); CALCIUM 8.7 MG/DL (8.5-10.1); CREATININE SERUM 1.06 MG/DL (0.60-1.30); POTASSIUM 3.9 MMOL/L (3.6-5.0); TOTAL PROTEIN 6.1 GM/DL (6.4-8.2)
[2019-02-16 22:31] LABS: BILIRUBIN,URINE NEGATIVE (NEGATIVE); CLARITY,URINE CLEAR; COLOR,URINE YELLOW; GLUCOSE, URINE (UA) 4+ (NEGATIVE); KETONES,URINE NEGATIVE (NEGATIVE); LEUKOCYTE ESTERASE ,URINE 1+ (NEGATIVE); NITRITE,URINE NEGATIVE (NEGATIVE); PH,URINE 6 (5-9); PROTEIN,URINE 2+ (NEGATIVE); UROBILINOGEN,URINE NORMAL (NORMAL)
[2019-02-16 22:39] LABS: BACTERIA,URINE NEGATIVE /HPF; WBC,URINE 0-2 /HPF
[2019-02-16 22:40] LABS: YEAST,URINE FEW /HPF
[2019-02-16 22:51] VITALS: BP 145/78
== END 2019-02-16 22:53 | disposition home or self-care (01) ==
LOC: EDUNIT# 21:11 → ER 21:12
DX: E11.40 Type 2 diabetes mellitus with diabetic neuropathy, unspecified (principal); J42 Unspecified chronic bronchitis; G43.909 Migraine, unspecified, not intractable, without status migrainosus; K21.9 Gastro-esophageal reflux disease without esophagitis; K58.9 Irritable bowel syndrome, unspecified; F41.9 Anxiety disorder, unspecified; Z91.14 Patient's other noncompliance with medication regimen; Z87.19 Personal history of other diseases of the digestive system; Z87.442 Personal history of urinary calculi; Z86.718 Personal history of other venous thrombosis and embolism; Z88.6 Allergy status to analgesic agent; Z91.040 Latex allergy status; Z88.8 Allergy status to other drugs, medicaments and biological substances; Z79.82 Long term (current) use of aspirin; Z79.4 Long term (current) use of insulin; Z95.5 Presence of coronary angioplasty implant and graft; Z80.0 Family history of malignant neoplasm of digestive organs; Z82.49 Family history of ischemic heart disease and other diseases of the circulatory system; Z83.3 Family history of diabetes mellitus; Z80.1 Family history of malignant neoplasm of trachea, bronchus and lung
CPT/HCPCS: 36415; 80053; 81000; 82010; 82962; 85025

== ENCOUNTER 2019-02-20 13:40 | Emergency (ER) | payer MEDICARE ==
[~2019-02-20] VITALS: Ht 160 cm; Wt 68.0 kg
[2019-02-20] MEDS ORDERED: PROMETHAZINE INJ 25 MG/ML (PHENERGAN) AMP IVP ONE (13:45)
[2019-02-20] MEDS ORDERED: inSUlin (REGULAR) HUMAN 1 UNIT/0.01 ML (CHARGE PER UNIT) IV ONE (13:45)
[2019-02-20 13:49] LABS: BASOPHILS # (AUTO) 0.1 10^3/uL (0.0-0.1); BASOPHILS % (AUTO) 1 % (0-10); EOSINOPHILS # (AUTO) 0.3 10^3/uL (0.0-0.3); EOSINOPHILS % (AUTO) 3 % (0-10); HEMATOCRIT 36 % (35-52); HEMOGLOBIN 12.2 G/DL (11.5-16.0); LYMPHOCYTES # (AUTO) 2.4 X 10^3 (1.0-4.0); LYMPHOCYTES % (AUTO) 24 % (12-44); MEAN CORPUSCULAR HEMOGLOBIN 30 PG (25-34); MEAN CORPUSCULAR HGB CONC 34 G/DL (32-36); MEAN CORPUSCULAR VOLUME 88 FL (80-99); MEAN PLATELET VOLUME 10.8 FL (7.4-10.4); MONOCYTES # (AUTO) 0.6 X 10^3 (0.0-1.0); MONOCYTES % (AUTO) 6 % (0-12); NEUTROPHILS # (AUTO) 6.5 X 10^3 (1.8-7.8); NEUTROPHILS % (AUTO) 66 % (42-75); PLATELET COUNT 246 10^3/uL (130-400); RED CELL DISTRIBUTION WIDTH 14.1 % (10.0-14.5); WHITE BLOOD COUNT 9.8 10^3/uL (4.3-11.0)
[2019-02-20 14:03] LABS: BILIRUBIN,URINE NEGATIVE (NEGATIVE); CLARITY,URINE CLEAR; COLOR,URINE YELLOW; GLUCOSE, URINE (UA) 4+ (NEGATIVE); KETONES,URINE NEGATIVE (NEGATIVE); LEUKOCYTE ESTERASE ,URINE NEGATIVE (NEGATIVE); NITRITE,URINE NEGATIVE (NEGATIVE); PH,URINE 5 (5-9); PROTEIN,URINE 1+ (NEGATIVE); UROBILINOGEN,URINE NORMAL (NORMAL)
[2019-02-20 14:12] LABS: ALANINE AMINOTRANSFERASE 14 U/L (0-55); ALBUMIN 3.5 GM/DL (3.2-4.5); ALKALINE PHOSPHATASE 88 U/L (40-136); BILIRUBIN,TOTAL 0.4 MG/DL (0.1-1.0); BUN/CREATININE RATIO 13; CALCIUM 8.7 MG/DL (8.5-10.1); CARBON DIOXIDE 20 MMOL/L (21-32); CHLORIDE 96 MMOL/L (98-107); CREATININE SERUM 1.25 MG/DL (0.60-1.30); GFR ESTIMATED 44; POTASSIUM 4.1 MMOL/L (3.6-5.0); SODIUM 127 MMOL/L (135-145); TOTAL PROTEIN 6.4 GM/DL (6.4-8.2)
--- NOTE | 2019-02-20 14:14 | ED General ---
General Chief Complaint: Glucose Problems Stated Complaint: WEAKNESS;HIGH BLOOD SUGAR Nursing Triage Note: pt states weak for a while. pt blood sugar elevated for EMS Nursing Sepsis Screen: No Definite Risk Source of Information: Patient Exam Limitations: No Limitations History of Present Illness Date Seen by Provider: Feb 20, 2019 Time Seen by Provider: 14:12 Initial Comments To ER per EMS (for the third time in 5 days) from home with reports of general weakness for a while and elevated blood sugar. She states that she took 30 some units of Humalog this morning but her blood sugars still too high to read. She assures me that she is actually taking her insulin. Timing/Duration: Constant Severity: Moderate Associated Systoms: Nausea/Vomiting Allergies and Home Medications Allergies Coded Allergies: ketorolac (Verified Allergy, Severe, ANAPHYLAXIS, PT TAKES ASA AT HOME, 11/23/18) ondansetron (Verified Allergy, Intermediate, RASH, 11/23/18) RASH/ HIVES exenatide (Verified Allergy, Unknown, NAUSEA, 11/23/18) NON STOP VOMITING latex (Verified Allergy, Unknown, RASH, 11/23/18) metoclopramide (Verified Allergy, Unknown, RESTLESS LEGS, 11/23/18) Home Medications Amlodipine Besylate 10 Mg Tablet, 5 MG PO DAILY, (Reported) LAST FILLED #21 AUG 2018 Aspirin 81 Mg Tablet.dr, 81 MG PO DAILY, (Reported) Atorvastatin Calcium 40 Mg Tablet, 40 MG PO HS, (Reported) LAST FILLED #30 10-11-18 Gabapentin 800 Mg Tablet, 1,600 MG PO HS, (Reported) TAKES 2 (800MG) TABLETS Gabapentin 800 Mg Tablet, 800 MG PO DAILY PRN for NERVE PAIN, (Reported) Insulin Detemir 100 Unit/1 Ml Insuln.pen, 30 UNIT SQ DAILY, (Reported) LAST FILLED AUGUST 2018 Insulin Lispro 100 Unit/1 Ml Insuln.pen, SQ TIDAC, (Reported) LAST FILLED MARCH 2018 Linagliptin 5 Mg Tablet, 5 MG PO DAILY, (Reported) Melatonin 5 Mg Capsule, 5 MG PO HS PRN for SLEEP, (Reported) Metoprolol Succinate 50 Mg Tab.er.24h, 50 MG PO DAILY Prescribed by: SHIRA BOOTHE on 01/20/19 1315 Mirtazapine 15 Mg Tablet, 15 MG PO HS, (Reported) Omeprazole 20 Mg Capsule.dr, 20 MG PO DAILY, (Reported) Oxycodone HCl 10 Mg Tablet, 10 MG PO DAILY, (Reported) Oxycodone HCl/Acetaminophen 1 Each Tablet, 1 TAB PO Q4H PRN for PAIN-MODERATE, ( Reported) Patient Home Medication List Home Medication List Reviewed: Yes Review of Systems Review of Systems Constitutional: see HPI EENTM: see HPI Respiratory: no symptoms reported Cardiovascular: no symptoms reported Gastrointestinal: nausea, vomiting Genitourinary: no symptoms reported Musculoskeletal: no symptoms reported Skin: no symptoms reported Psychiatric/Neurological: No Symptoms Reported Hematologic/Lymphatic: No Symptoms Reported Immunological/Allergic: no symptoms reported Past Mlnsgip-Uasutc-Zsvstj Hx Patient Social History Alcohol Beverage of Choice: Wine Type Used: Cigars Former Smoker, Quit: Nov 10, 2017 2nd Hand Smoke Exposure: No Recent Foreign Travel: No Contact w/Someone Who Travel: No Recent Infectious Disease Expo: No Recent Hopitalizations: No Immunizations Up To Date Tetanus Booster (TDap): Unknown PED Vaccines UTD: No Date of Pneumonia Vaccine: Dec 12, 2013 Date of Influenza Vaccine: Sep 22, 2018 Seasonal Allergies Seasonal Allergies: Yes Past Medical History Surgeries: Yes Cardiac, Coronary Stent, Ear Surgery, Gallbladder, Orthopedic, Renal Respiratory: Yes Chronic Bronchitis, Sleep Apnea Currently Using CPAP: Yes (AT HOME) Currently Using BIPAP: No Cardiac: Yes (CARDIAC STENTX 1; DVT'S IN ARMS) Chronic Edema/Swelling, Coronary Artery Disease, Deep Vein Thrombosis, High Cholesterol, Hypertension Neurological: Yes (NEUROPATHY IN HANDS AND FEET) Headaches /Migraines, Neuropathy 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 Disorders: No 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 Disorders: 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 Sexually Transmitted Disease: No HIV/AIDS: No Genitourinary: Yes Bladder Infection, Kidney Stones, Renal Failure Gastrointestinal: Yes Gastroesophageal Reflux, Diverticulosis, Esophagitis, Hiatal Hernia, Irritable Bowel Musculoskeletal: Yes Degenerate Disk Disease, Fibromyalgia, Chronic Back Pain Endocrine: Yes Diabetes, Insulin dep HEENT: Yes Chronic Ear Infection Loss of Vision: Denies Hearing Impairment: Hard of Hearing Cancer: No Psychosocial: Yes Anxiety Integumentary: Yes Psoriasis Blood Disorders: No Adverse Reaction/Blood Tranf: No Family Medical History Cancer of mouth 19 FATHER ( of esophogeal cancer.) Cardiovascular disease 19 MOTHER G8 BROTHER Completed stroke 19 FATHER G8 BROTHER Diabetes mellitus G8 BROTHER FH: lung cancer 19 MOTHER Hypertension 19 FATHER Kidney disease 19 FATHER Myocardial infarction 19 MOTHER G8 BROTHER Respiratory disorder No Family History of: AIDS CAD Over 55 Years Old, CVA, Diabetes, GI Disease, Renal Disease Physical Exam Vital Signs Vital Signs - First Documented 02/20/19 13:41 Temp 97.3 Pulse 51 Resp 20 B/P (MAP) 163/78 (106) Pulse Ox 99 O2 Delivery Room Air Capillary Refill : Less Than 3 Seconds Height, Weight, BMI Height: 5'3.00" Weight: 150lbs. 6.0oz. [id number]; 26.8 BMI Method:Estimated General Appearance: No Apparent Distress, WD/WN, Chronically ill Eyes: Bilateral Eye Normal Inspection, Bilateral Eye PERRL, Bilateral Eye EOMI HEENT: PERRL/EOMI, Normal ENT Inspection Neck: Full Range of Motion, Normal Inspection Respiratory: No Accessory Muscle Use, No Respiratory Distress Gastrointestinal: Normal Bowel Sounds, Non Tender, Soft Extremity: Normal Capillary Refill, Normal Inspection Neurologic/Psychiatric: Alert, Oriented x3, No Motor/Sensory Deficits Skin: Normal Color, Warm/Dry Progress/Results/Core Measures Suspected Sepsis Recent Fever Within 48 Hours: No Infection Criteria Present: None New/Unexplained Altered Menta: No Sepsis Screen: No Definite Risk SIRS Temperature:97.3 Pulse: 51 Respiratory Rate: 20 Laboratory Tests 02/20/19 13:40: White Blood Count 9.8 Blood Pressure 163 /78 Mean: 106 Laboratory Tests 02/20/19 13:40: Creatinine 1.25, Platelet Count 246, Total Bilirubin 0.4 Results/Orders Lab Results Laboratory Tests Test 02/20/19 13:40 02/20/19 13:51 02/20/19 13:57 02/20/19 15:10 Range/Units White Blood Count 9.8 4.3-11.0 10^3/uL Red Blood Count 4.07 L 4.35-5.85 10^6/uL Hemoglobin 12.2 11.5-16.0 G/DL Hematocrit 36 35-52 % Mean Corpuscular Volume 88 80-99 FL Mean Corpuscular Hemoglobin 30 25-34 PG Mean Corpuscular Hemoglobin Concent 34 32-36 G/DL Red Cell Distribution Width 14.1 10.0-14.5 % Platelet Count 246 130-400 10^3/uL Mean Platelet Volume 10.8 H 7.4-10.4 FL Neutrophils (%) (Auto) 66 42-75 % Lymphocytes (%) (Auto) 24 12-44 % Monocytes (%) (Auto) 6 0-12 % Eosinophils (%) (Auto) 3 0-10 % Basophils (%) (Auto) 1 0-10 % Neutrophils # (Auto) 6.5 1.8-7.8 X 10^3 Lymphocytes # (Auto) 2.4 1.0-4.0 X 10^3 Monocytes # (Auto) 0.6 0.0-1.0 X 10^3 Eosinophils # (Auto) 0.3 0.0-0.3 10^3/uL Basophils # (Auto) 0.1 0.0-0.1 10^3/uL Sodium Level 127 L 135-145 MMOL/L Potassium Level 4.1 3.6-5.0 MMOL/L Chloride Level 96 L 98-107 MMOL/L Carbon Dioxide Level 20 L 21-32 MMOL/L Anion Gap 11 5-14 MMOL/L Blood Urea Nitrogen 16 7-18 MG/DL Creatinine 1.25 0.60-1.30 MG/DL Estimat Glomerular Filtration Rate 44 BUN/Creatinine Ratio 13 Glucose Level 792 *H 70-105 MG/DL Calcium Level 8.7 8.5-10.1 MG/DL Corrected Calcium 9.1 8.5-10.1 MG/DL Magnesium Level 1.7 L 1.8-2.4 MG/DL Total Bilirubin 0.4 0.1-1.0 MG/DL Aspartate Amino Transf (AST/SGOT) 14 5-34 U/L Alanine Aminotransferase (ALT/SGPT) 14 0-55 U/L Alkaline Phosphatase 88 40-136 U/L Total Protein 6.4 6.4-8.2 GM/DL Albumin 3.5 3.2-4.5 GM/DL Beta-Hydroxybutyrate (Chem panel) 1.08 H 0.00-0.27 MMOL/L Thyroid Stimulating Hormone (TSH) 0.69 0.35-4.94 UIU/ML Free Thyroxine 0.86 0.70-1.48 NG/DL Human Chorionic Gonadotropin, Quant < 5 <5 MIU/ML Glucometer > 600 *H 510 *H 70-110 MG/DL Urine Color YELLOW Urine Clarity CLEAR Urine pH 5 5-9 Urine Specific [place] 1.010 L 1.016-1.022 Urine Protein 1+ H NEGATIVE Urine Glucose (UA) 4+ H NEGATIVE Urine Ketones NEGATIVE NEGATIVE Urine Nitrite NEGATIVE NEGATIVE Urine Bilirubin NEGATIVE NEGATIVE Urine Urobilinogen NORMAL NORMAL MG/DL Urine Leukocyte Esterase NEGATIVE NEGATIVE Urine RBC (Auto) NEGATIVE NEGATIVE Urine RBC RARE /HPF Urine WBC RARE /HPF Urine Squamous Epithelial Cells RARE /HPF Urine Crystals NONE /LPF Urine Bacteria NEGATIVE /HPF Urine Casts NONE /LPF Urine Mucus NEGATIVE /LPF Urine Yeast FEW H /HPF Urine Culture Indicated YES Test 02/20/19 16:32 Range/Units Glucometer 437 *H 70-110 MG/DL My Orders Orders - JR MAREI APRN Cbc With Automated Diff (02/20/19 13:42) Comprehensive Metabolic Panel (02/20/19 13:42) Ua Culture If Indicated (02/20/19 13:42) Iv Heplock-Insert (Order) (02/20/19 13:42) Hcg,Quantitative (02/20/19 13:42) Promethazine Injection (Phenergan Injec (02/20/19 13:45) Beta Hydroxybutyrate (02/20/19 13:43) Accucheck Stat ONCE (02/20/19 13:43) Insulin (Regular) Human (Humulin R (Per (02/20/19 13:45) Diphenhydramine Injection (Benadryl Inje (02/20/19 14:15) Ns Iv 1000 Ml (Sodium Chloride 0.9%) (02/20/19 14:30) Urine Culture (02/20/19 13:57) Magnesium (02/20/19 14:55) Thyroid Stimulating Hormone (02/20/19 14:55) Free T4 (Free Thyroxine) (02/20/19 14:55) Accucheck Stat ONCE (02/20/19 15:01) Magnesium Oxide Tablet (Mag Ox Tablet) (02/20/19 15:45) Accucheck Stat ONCE (02/20/19 15:48) Diphenhydramine Injection (Benadryl Inje (02/20/19 16:00) Insulin (Regular) Human (Humulin R (Per (02/20/19 16:45) Medications Given in ED Current Medications Medications Dose Ordered Sig/Jackie Route Start Time Stop Time Status Last Admin Dose Admin Diphenhydramine HCl 25 mg ONCE ONCE IVP 02/20/19 14:15 4/1/19 14:16 DC 02/20/19 14:14 25 MG Diphenhydramine HCl 25 mg ONCE ONCE IVP 02/20/19 16:00 02/20/19 16:01 DC 02/20/19 16:05 25 MG Insulin Human Regular 10 unit ONCE ONCE IV 02/20/19 13:45 02/20/19 13:46 DC 02/20/19 14:10 10 UNIT Magnesium Oxide 800 mg ONCE ONCE PO 02/20/19 15:45 02/20/19 15:46 DC 02/20/19 16:38 800 MG Promethazine HCl 25 mg ONCE ONCE IVP 02/20/19 13:45 02/20/19 13:46 DC 02/20/19 14:14 25 MG Vital Signs/I&O 02/20/19 13:41 Temp 97.3 Pulse 51 Resp 20 B/P (MAP) 163/78 (106) Pulse Ox 99 O2 Delivery Room Air Capillary Refill : Less Than 3 Seconds Blood Pressure Mean: 106 Point of Care Testing Blood Glucose Action Taken: too high to read silas drawn Departure Communication (Admissions) 1276-discussed the case with Dr. Covarrubias. She agrees the patient can be discharged home with follow-up with [facility] tomorrow. She has been able to get herself out of bed to get onto the commode without assistance, she is able to swallow magnesium pills without vomiting. We will discharged home. Impression Primary Impression: Uncontrolled diabetes mellitus Qualified Codes: E11.65 - Type 2 diabetes mellitus with hyperglycemia Disposition: HOME, SELF-CARE Condition: Improved Admissions Decision to Admit Reason: Admit from ER (General) Decision to Admit/Date: Feb 20, 2019 Time/Decision to Admit Time: 16:54 Departure-Patient Inst. Decision time for Depature: 16:03 Referrals: [facility] (PCP/Family) Primary Care Physician Patient Instructions: Diabetes Type 2 (DC) Add. Discharge Instructions: I made a follow-up appointment for you tomorrow with Juanita Jackson at [facility] at 10:20 AM. Your insulin regimen needs adjusted. Return to ER for any concerns. All discharge instructions reviewed with patient and/or family. Voiced understanding. Scripts Magnesium Oxide (Magnesium Oxide) 400 Mg Tablet 400 MG PO BID, #6 TAB Prov: JR MARIE APRN 02/20/19 Copy Copies To 1: WINDY GRIFFIN DO; TABATHA COVARRUBIAS MD; ALEXX ZIMMER MD; ALBINA SAMUEL MD, PETER J APRN Feb 20, 2019 14:14
[2019-02-20] MEDS ORDERED: diphenhydrAMINE 50 MG/ML INJ (BENADRYL) IVP ONE ×2 (14:15→16:00)
[2019-02-20 14:19] LABS: GLUCOSE 792 MG/DL (70-105)
[2019-02-20 14:22] LABS: BACTERIA,URINE NEGATIVE /HPF; RBC,URINE RARE /HPF; SQUAMOUS EPITHELIAL CELL,UR RARE /HPF; WBC,URINE RARE /HPF; YEAST,URINE FEW /HPF
[2019-02-20] MEDS ORDERED: NS IV 1000 ML 1,000 ML IV SCH (14:30)
[2019-02-20 15:12] LABS: MAGNESIUM 1.7 MG/DL (1.8-2.4)
[2019-02-20 15:37] LABS: FREE T4 (FREE THYROXINE) 0.86 NG/DL (0.70-1.48)
[2019-02-20] MEDS ORDERED: MAGNESIUM OXIDE (MAG-OX)400 MG TAB PO ONE (15:45)
[2019-02-20] MEDS ORDERED: inSUlin (REGULAR) HUMAN 1 UNIT/0.01 ML (CHARGE PER UNIT) IV SCH (16:45)
[2019-02-20] MEDS ORDERED: MAGN400T50 PO (16:55)
[2019-02-20 17:06] VITALS: BP 127/63
== END 2019-02-20 17:08 | disposition home or self-care (01) ==
LOC: EDUNIT# 13:40 → ER 13:41
DX: E11.65 Type 2 diabetes mellitus with hyperglycemia (principal); E11.40 Type 2 diabetes mellitus with diabetic neuropathy, unspecified; G47.30 Sleep apnea, unspecified; I25.10 Atherosclerotic heart disease of native coronary artery without angina pectoris; E78.00 Pure hypercholesterolemia, unspecified; G43.909 Migraine, unspecified, not intractable, without status migrainosus; I10 Essential (primary) hypertension; K21.9 Gastro-esophageal reflux disease without esophagitis; K58.9 Irritable bowel syndrome, unspecified; F41.9 Anxiety disorder, unspecified; Z80.0 Family history of malignant neoplasm of digestive organs; Z80.1 Family history of malignant neoplasm of trachea, bronchus and lung; Z82.49 Family history of ischemic heart disease and other diseases of the circulatory system; Z87.19 Personal history of other diseases of the digestive system; Z87.442 Personal history of urinary calculi; Z86.718 Personal history of other venous thrombosis and embolism; Z79.4 Long term (current) use of insulin; Z88.4 Allergy status to anesthetic agent; Z88.8 Allergy status to other drugs, medicaments and biological substances; Z91.040 Latex allergy status; Z79.82 Long term (current) use of aspirin; Z87.891 Personal history of nicotine dependence; Z95.5 Presence of coronary angioplasty implant and graft; Z98.890 Other specified postprocedural states
CPT/HCPCS: 36415; 80053; 81000; 82010; 82962; 83735; 84439; 84443; 84702; 85025; 87088; 96361; 96374; 96375; 96376

== ENCOUNTER 2019-03-06 07:42 | Outpatient (CLI) | payer MEDICARE ==
[~2019-03-06] VITALS: Ht 152.4 cm; Wt 56.9 kg
[~2019-03-06 07:42] MED LIST changes: +MAGN400T50 PO
== END 2019-03-06 16:10 | disposition home or self-care (01) ==
LOC: PREOP 07:42
PROVIDERS: ATTEND Surgery
DX: Z01.818 Encounter for other preprocedural examination (principal)

== ENCOUNTER 2019-03-08 10:48 | Day surgery (SDC) | payer MEDICARE ==
[2019-03-08] MEDS ORDERED: NS IV 500 ML 500 ML ONE (10:53)
--- OUTSIDE RECORDS SUMMARY | 2019-03-08 10:53 | XMS REPORT ---
Author Author Migration, Doctor Organization [facility] Address Unknown Phone Unavailable Care Team Providers Care Security Risk Analyst Name Role Phone Migration, Doctor Unavailable Unavailable PROBLEMS Type Condition ICD9-CM Code CEU41-HM Code Onset Dates Condition Status SNOMED Code Problem Vitamin D deficiency E55.9 Active 22310525 Problem Degenerative disc disease, lumbar M51.36 Active 83547391 Problem Alterations of sensations R20.9 Active 075804701 Problem Primary insomnia F51.01 Active 3566742 Problem Seasonal allergic rhinitis due to pollen J30.1 Active 52711931 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 Active 825353030 Problem Essential hypertension I10 Active 62930265 Problem Tobacco abuse Z72.0 Active 16896682 Problem CAD (coronary artery disease) I25.10 Active 37073215 Problem Chronic pain syndrome G89.4 Active 202571480 Problem Tobacco abuse counseling Z71.6 Active 081774039 Problem Dental caries K02.9 Active 43267123 Problem DM neuro manif type II E11.49 Active 67739543 Problem Arthritis M19.90 Active 8307372 Problem Other obesity due to excess calories E66.09 Active 132700710 Problem Body mass index (BMI) of 33.0-33.9 in adult Z68.33 Active 642026232 Problem Type 2 diabetes mellitus without complication E11.9 Active 051882649 Problem Fibromyalgia M79.7 Active 05398784 Problem Frequent falls R29.6 Active 348975020 Problem Hyperlipidemia E78.5 Active 95958719 Problem GERD (gastroesophageal reflux disease) K21.9 Active 461187391 Problem Diabetic mononeuropathy associated with type 2 diabetes mellitus E11.41 Active 821097329 Problem Cervicalgia M54.2 Active 65178934 Problem Type 2 diabetes mellitus with hyperglycemia E11.65 Active [id number] Problem Dysphagia, unspecified type R13.10 Active 96240885 ALLERGIES No Information ENCOUNTERS Encounter Location Date Diagnosis [facility], [place] [address] [facility] [id number] [address] Feb, [facility], [place] [id number] [place] [address] 33953- 6459 Jan, [facility], [place] [id number] [place] [address] 89646- 4094 Dec, [facility], [place] [id number] [place] [address] 56652- 4199 Dec, [facility], [place] [address] 56868- 7354 Dec, Dysuria R30.0 [place] [address] 09161- 9003 Dec, [facility], [place] [id number] [place] [address] 15480- 0935 Dec, Hematuria, unspecified type R31.9 ; Frequent falls R29.6 and Type 2 diabetes mellitus with hyperglycemia E11.65 [facility], [place] [id number] [place] [address] 94881- 2533 Dec, [facility] [id number] [place] [address] 01645 -6836 Dec, Syncope and collapse R55 and Seizure R56.9 [place] [address] [id number] [place] [address] 28806- 8813 Dec, [facility], [place] [id number] [place] [address] 28402- 1713 Nov, [facility], [place] [id number] [place] [address] 76399- 0239 Nov, [facility], [place] [id number] [place] [address] 44525- 2347 Nov, Type 2 diabetes mellitus with hyperglycemia E11.65 ; Diarrhea, unspecified R19.7 ; Nausea with vomiting, unspecified R11.2 ; Weakness R53.1 ; Hyperlipidemia E78.5 ; Anemia, unspecified type D64.9 and Peripheral edema R60.9 [place] [address] [id number] [place] [address] 67889- 0455 Nov, [place] [address] 93933- 5525 Oct, DM neuro manif type II E11.49 [place] [address] 35213- 2178 Oct, [place] [address] 04247- 2673 Oct, GERD (gastroesophageal reflux disease) K21.9 [place] [address] 87754- 9840 Sep, [place] [address] 22420- 2922 Sep, Type 2 diabetes mellitus without complication E11.9 ; Peripheral edema R60.9 ; Weakness R53.1 ; Acute pain of right knee M25.561 ; Degenerative disc disease, lumbar M51.36 ; Fibromyalgia M79.7 and Anemia, unspecified type D64.9 [place] [address] 98319- 5155 Sep, [facility] [address] [id number] [place] [address] 71610- 9599 Sep, [facility] [id number] [place] [address] 09683- 0089 Sep, [place] [address] 30093- 0057 Sep, Type 2 diabetes mellitus with hyperglycemia E11.65 ; Other microscopic hematuria R31.29 ; Nausea and vomiting, intractability of vomiting not specified, unspecified vomiting type R11.2 and Dizziness R42 [place] [address] [address] [id number] [place] [address] 48590- 0596 08 Sep, 2018 [place] [address] 17664- 0285 Sep, [facility], [place] [id number] [place] [address] 98418- 3232 Sep, GERD (gastroesophageal reflux disease) K21.9 [facility], [place] [id number] [place] [address] 35695- 1168 Aug, [facility], [place] [address] [id number] [place] [address] 31812- 1804 Aug, DM neuro manif type II E11.49 [facility], [place] [id number] [place] [address] 29881- 9225 Aug, [facility], [place] [address] 99793- 1744 Jul, [facility], [place] [id number] [place] [address] 54599- 8804 Jul, Elevated serum creatinine R79.89 [place] [address] 37184- 4631 Jul, [facility], [place] [id number] [place] [address] 74335- 6046 Jul, [facility], [place] [id number] [place] [address] 33195- 8456 Jul, [facility], [place] [address] [place] [id number] [place] [address] 38275- 6982 Jun, DM neuro manif type II E11.49 ; Hyperlipidemia E78.5 ; GERD (gastroesophageal reflux disease) K21.9 ; Fibromyalgia M79.7 ; 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 ; Chronic pain syndrome G89.4 ; Primary insomnia F51.01 ; Seasonal allergic rhinitis due to pollen J30.1 ; Elevated serum creatinine R79.89 and Dysphagia, unspecified type R13.10 [facility], [place] [address] [id number] [place] [address] 27735- 4825 Apr, Type 2 diabetes mellitus with hyperglycemia E11.65 [place] [id number] [place] [address] 32602- 1453 Apr, Hyperlipidemia E78.5 ; Chronic pain syndrome G89.4 ; Cervicalgia M54.2 ; DM neuro manif type II E11.49 ; retirement current use of insulin Z79.4 ; Nausea alone R11.0 ; Essential hypertension I10 ; GERD ( gastroesophageal reflux disease) K21.9 ; CAD (coronary artery disease) I25.10 and Diabetic mononeuropathy associated with type 2 diabetes mellitus E11.41 [place] [address] 71090- 7159 Apr, [place] [address] 26600- 9181 March, Essential hypertension I10 ; DM neuro manif type II E11.49 and GERD (gastroesophageal reflux disease) K21.9 [place] [address] 28210- 9365 March, DM neuro manif type II E11.49 and GERD (gastroesophageal reflux disease) K21.9 [place] [address] 67627- 7553 March, [place] [address] 65485- 6591 Feb, Tobacco abuse Z72.0 [place] [address] 90054- 1023 Feb, Tobacco abuse Z72.0 [place] [address] 87878- 2546 Feb, Hypokalemia E87.6 [place] [address] 69944- 7966 Feb, Hyperlipidemia E78.5 ; Essential hypertension I10 ; DM neuro manif type II E11.49 ; Fibromyalgia M79.7 ; Acute non-recurrent frontal sinusitis J01.10 ; Other obesity due to excess calories E66.09 and Body mass index (BMI) of 33.0-33.9 in adult Z68.33 [place] [address] 72489- 7249 05 Jan, 2018 Dysuria R30.0 [facility], [place] [address] 02301- 8216 05 Jan, 2018 Dysuria R30.0 [facility], [place] [address] [place] [address] [id number] [place] [address] 05280- 4936 02 Jan, 2018 Acute cystitis with hematuria N30.01 ; DM neuro manif type II E11.49 ; retirement current use of insulin Z79.4 ; Essential hypertension I10 and Hospital discharge follow-up Z09 [place] [address] 91210- 4956 27 Dec, 2017 Chest pain, unspecified type R07.9 ; Dehydration E86.0 and Anuria R34 [place] [address] 41459- 3046 Dec, [place] [address] 32337- 0160 22 Dec, 2017 Hyperglycemia R73.9 ; Dehydration E86.0 and Acute cystitis with hematuria N30.01 [facility] [address] 09583 -0802 Dec, [facility] [id number] [place] [address] 98202 -9264 Dec, [facility] [address] 95860 -2512 Dec, [facility] [id number] [place] [address] 45148 -4834 16 Dec, 2017 Dysuria R30.0 ; Acute cystitis with hematuria N30.01 and Weakness R53.1 [facility], [place] [address] [place] [id number] [place] [address] 29121- 2329 09 Dec, 2017 [facility], [place] [address] [place] [id number] [place] [address] 30281- 0283 Nov, [place] [address] [place] [address] [id number] [place] [address] 95297- 9932 Nov, [place] [address] 80866- 9459 Nov, Essential hypertension I10 ; DM neuro manif type II E11.49 ; 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 ; Tobacco abuse Z72.0 ; Hyperlipidemia E78.5 ; Non-adherence to medical treatment Z91.19 ; GERD (gastroesophageal reflux disease) K21.9 ; Degenerative disc disease, lumbar M51.36 ; Fibromyalgia M79.7 ; Chronic pain syndrome G89.4 ; Dental caries K02.9 and Seasonal allergic rhinitis due to pollen J30.1 [place] [address] 30699- 4613 Nov, Alterations of sensations R20.[address] 45789- 2792 Sep, DM neuro manif type II E11.49 ; Hyperlipidemia E78.5 ; Degenerative disc disease, lumbar M51.36 and Chronic pain syndrome G89.4 [place] [address] [place] [id number] [place] [address] 73395- 9348 Sep, Arthritis M19.[address] 65372- 0023 Sep, Type 2 diabetes mellitus without complication E11.9 ; GERD ( gastroesophageal reflux disease) K21.9 ; Arthritis M19.90 and Chronic pain syndrome G89.4 [place] [address] [place] [id number] [place] [address] 58634- 5472 Sep, [place] [address] 11907- 0164 Aug, [place] [address] 02115- 6637 Aug, Type 2 diabetes mellitus without complication E11.9 [place] [address] 39690- 0587 Aug, [facility], [place] [address] [address]- 6483 Aug, [facility], [place] [address] [place] [id number] [place] [address] 68496- 7647 Aug, [facility], [place] [id number] [place] [address] 19801- 3409 Jul, [facility] [address] [id number] [place] [address] 09737 -1010 22 Jul, 2017 Acute non-recurrent frontal sinusitis J01.10 [facility], [place] [address] [place] [id number] [place] [address] 88366- 3170 20 Jul, 2017 CAD (coronary artery disease) I25.10 and GERD ( gastroesophageal reflux disease) K21.9 [place] [address] [place] [id number] [place] [address] 97982- 6994 14 Jul, 2017 Localized swelling, mass and lump, neck R22.1 [place] [address] [place] [id number] [place] [address] 05882- 2194 06 Jul, 2017 [place] [address] [place] [id number] [place] [address] 33379- 9282 Jun, Type 2 diabetes mellitus without complication E11.9 ; Primary insomnia F51.01 ; Alterations of sensations R20.9 ; Hyperlipidemia E78.5 ; GERD (gastroesophageal reflux disease) K21.9 ; Essential hypertension I10 ; 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 ; Tobacco abuse Z72.0 ; Tobacco abuse counseling Z71.6 and CAD (coronary artery disease) I25.10 [facility], [place] [address] [address]- 3988 May, [place] [address] [place] [id number] [place] [address] 68472- 9831 May, Type 2 diabetes mellitus without complication E11.9 [place] [address] [place] [id number] [place] [address] 32652- 8044 May, [place] [id number] [place] [address] 31317- 2801 March, [facility], [place] [address] [place] [address] [id number] [place] [address] 58183- 1697 Feb, [facility] [id number] [place] [address] 19972 -6465 Jan, Acute suppurative otitis media of left ear with spontaneous rupture of tympanic membrane, recurrence not specified H66.012 [facility], [place] [address] [place] [address] [id number] [place] [address] 87592- 2631 17 Dec, 2016 Type 2 diabetes mellitus without complication E11.9 ; Lumbago M54.5 ; Cervicalgia M54.2 ; Hyperlipidemia E78.5 ; GERD ( gastroesophageal reflux disease) K21.9 ; Chronic pain syndrome G89.4 ; Dysuria R30.0 and Essential hypertension I10 [place] [address] 02035- 8871 Oct, [place] [address] [place] [id number] [place] [address] 16686- 7341 30 Sep, 2016 Diabetic mononeuropathy associated with type 2 diabetes mellitus E11.41 and Coughing R05 [place] [address] [place] [id number] [place] [address] 46601- 1049 Sep, Diabetic mononeuropathy associated with type 2 diabetes mellitus E11.41 and Coughing R05 [place] [address] [place] [id number] [place] [address] 87273- 7834 Sep, Onychomycosis B35.1 ; Neuritis M79.2 and Type 2 diabetes mellitus without complication E11.9 [place] [address] [place] [id number] [place] [address] 06115- 9049 Sep, [place] [address] 10192- 0836 Sep, Cough R05 ; Seasonal allergic rhinitis due to pollen J30.1 and Acute upper respiratory infection, unspecified J06.9 [place] [id number] [place] [address] 40585- 9716 Sep, [place] [address] 79490- 9818 Aug, [place] [address] [place] [id number] [place] [address] 68216- 5819 Jul, Type 2 diabetes mellitus without complication E11.9 ; Chronic pain G89.29 ; Essential hypertension I10 and Acute non-recurrent maxillary sinusitis J01.00 [place] [address] [place] [id number] [place] [address] 55660- 3162 Jul, Chronic pain syndrome G89.4 ; Lumbago M54.5 and Cervicalgia M54.2 [place] [id number] [place] [address] 11592- 6243 Jul, [address] 33299- 6754 Jul, [place] [address] [place] [id number] [place] [address] 80003- 6095 Jun, Onychomycosis B35.1 ; Onychocryptosis L60.0 and DM neuro manif type II E11.49 [place] [id number] [place] [address] 93926- 3477 Jun, Type 2 diabetes mellitus without complication E11.9 ; Pain in unspecified hip M25.559 ; Other chronic pain G89.29 ; Lumbago M54.5 ; Chronic pain G89.29 ; Insomnia, unspecified G47.00 ; GERD (gastroesophageal reflux disease) K21.9 and Dental caries K02.9 [place] [id number] [place] [address] 99523- 8981 Jun, Type 2 diabetes mellitus without complication E11.9 ; Lumbago M54.5 ; Chronic pain G89.29 ; Insomnia, unspecified G47.00 ; GERD ( gastroesophageal reflux disease) K21.9 ; Dental caries K02.9 ; Pain in unspecified hip M25.559 and Other chronic pain G89.29 [place] [address] [address]- 9554 May, [place] [address] [place] [id number] [place] [address] 75650- 8093 May, Type 2 diabetes mellitus without complication E11.9 ; Essential hypertension I10 ; Chronic pain syndrome G89.4 ; Other seasonal allergic rhinitis J30.2 and Insomnia, unspecified G47.00 [place] [address] [place] [id number] [place] [address] 94585- 5914 Apr, [place] [address] [place] [address] 91002- 3154 Apr, Hypertension I10 and Chronic pain G89.29 [place] [address] [place] [address] 75613- 2907 March, Onychomycosis B35.1 ; Onychocryptosis L60.0 and Type 2 diabetes mellitus without complication E11.9 [place] [address] [place] [address] 60027- 5184 March, Type 2 diabetes mellitus without complication E11.9 ; Essential hypertension I10 ; Alterations of sensations R20.9 ; Chronic pain syndrome G89.4 ; Tobacco abuse Z72.0 and Tobacco abuse counseling Z71.6 [address] [place] [address] 43309- 4375 Feb, Cough R05 ; Type 2 diabetes mellitus without complication E11.9 ; Tobacco abuse counseling Z71.6 and Chronic pain G89.29 [place] [address] [place] [address] 91106- 3946 Feb, [address] [place] [address] 36771- 5713 Feb, Type 2 diabetes mellitus without complication E11.9 ; Lumbago M54.5 ; Cervicalgia M54.2 ; Degenerative disc disease, lumbar M51.36 and Numbness and tingling of both legs 782.0 [facility] [id number] [place] [address] [id number] Jan, Dental caries K02.9 and Encounter for dental examination Z01.20 [place] [address] 17094- 9610 Jan, Type 2 diabetes mellitus without complication E11.9 [place] [address] 43921- 1104 Jan, Type 2 diabetes mellitus without complication E11.9 ; Numbness and tingling of both legs 782.0 ; Fibromyalgia M79.7 ; Hyperlipidemia E78.5 ; Lumbago M54.5 ; Cervicalgia M54.2 ; Hypertension I10 ; CAD (coronary artery disease) I25.10 ; Tobacco abuse Z72.0 ; Tobacco abuse counseling Z71.6 and GERD (gastroesophageal reflux disease) K21.9 [place] [id number] [place] [address] 85765- 9793 Jan, [place] [address] [place] [id number] [place] [address] 06197- 8198 Dec, [facility] [id number] [place] [address] [id number] Dec, Dental examination Z01.20 and Dental caries K02.9 [place] [address] [id number] [place] [address] 95869- 2032 Dec, Edema R60.9 ; Type 2 diabetes mellitus without complication E11.9 ; Hypertension I10 and Mouth pain K13.79 [place] [id number] [place] [address] 94917- 5803 Dec, Degenerative disc disease, lumbar M51.[address] 51274- 0753 Dec, [place] [address] [place] [address] [id number] [place] [address] 33577- 7163 Nov, Insomnia, unspecified G47.00 [place] [address] 02842- 2135 Nov, Type 2 diabetes mellitus without complication E11.9 ; Lumbago M54.5 ; Degenerative disc disease, lumbar M51.36 ; Fibromyalgia M79.7 ; Coronary artery disease I25.10 ; Hyperlipidemia E78.5 ; Controlled substance agreement signed Z79.899 ; Dysuria R30.0 ; Insomnia, unspecified G47.00 ; GERD ( gastroesophageal reflux disease) K21.9 ; Hypertension 401.9 and retirement current use of insulin Z79.4 [place] [address] 89271- 8406 Nov, [place] [address] 73953- 9786 Oct, Degenerative disc disease, lumbar M51.36 ; Cervicalgia M54.2 ; Insomnia, unspecified G47.00 ; Decreased GFR R94.4 and GERD ( gastroesophageal reflux disease) K21.9 [place] [address] 81261- 4966 Oct, Lumbago M54.5 [place] [address] 54559- 4521 Oct, Low back pain M54.5 [facility] [id number] [place] [address] 16131- 6588 Oct, [facility] [id number] [place] [address] 05165- 0674 Oct, Disorientation R41.0 [place] [address] 96828- 3594 Oct, Type 2 diabetes mellitus without complication E11.9 ; Disorientation R41.0 and Chest pain R07.9 [place] [address] 61820- 6999 Oct, [place] [address] 40346- 6235 Sep, Low back pain M54.5 [place] [id number] [place] [address] 34802- 3592 Sep, Insomnia, unspecified G47.00 [facility], [place] [address] 02007- 5725 Aug, Degenerative disc disease, lumbar M51.36 ; Type 2 diabetes mellitus without complication E11.9 and Encounter for immunization Z23 [facility] [place] [address] 86502- 1350 Aug, [facility] [place] [address] 36081- 7431 Aug, [facility] [place] [address] 86109- 3343 Aug, [facility] [place] [address] 81220- 8685 Jul, [facility] [place] [address] 52845- 5427 Jun, [facility] [place] [address] 87227- 2525 Jun, Chest pain 786.50 and Lumbago 724.2 [facility] [place] [id number] [place] [address] 67532- 9393 Jun, [facility] [place] [id number] [place] [address] 96176- 4874 Jun, [facility] [id number] [place] [address] [id number] Jun, Dental examination V72.2 [facility] [place] [address] 56310- 5450 Jun, [facility] [place] [id number] [place] [address] 86224- 4747 May, Left shoulder pain 719.41 and Numbness and tingling of both legs 782.0 [facility] [place] [id number] [place] [address] 47934- 8058 May, Cough 786.2 ; Numbness and tingling of both legs 782.0 and Acute rhinitis 460 [facility] [place] [id number] [address]- 1736 May, [facility] [place] [id number] [place] [phone]- [address]99 Apr, [facility], [place] [id number] [place] [address] 99260- 3000 Apr, Bilateral lower extremity edema 782.3 ; Lumbago 724.2 and Insomnia 780.52 [facility], [place] [id number] [place] [address] [phone]- 4062 Apr, [facility], [place] [id number] [place] [address] [phone]- 9170 Apr, [facility], [place] [id number] [place] [address] [phone]- 2431 March, Seborrheic keratosis 702.19 and Skin lesion of face 709.9 [facility], [place] [id number] [place] [address] [phone]- 8276 March, [facility], [place] [id number] [place] [address] 7[address]49- 2528 March, [facility], [place] [id number] [address] March, [facility], [place] [id number] [place] [address] 57199- 6251 March, [facility], [place] [id number] [place] [address] 1965 Feb, [facility], [place] [id number] [place] [address] [id number] Feb, [facility] [place] [id number] [address] 1992 Jan, [facility], [place] [address] [id number] [place] [address] 25 Jan, 2014 [facility] [place] [facility] [address] [id number] [place] [address] 16 Jan, 2014 [facility] [place] [facility] [address] [id number] [place] [address] 7471 16 Jan, 2014 [facility] [place] [facility] [address] [id number] [place] [address] 0115 16 Jan, 2014 [facility] [place] [facility] [address] [id number] [place] [address] 4604 16 Jan, 2014 [facility] [place] [facility] [address] [id number] [place] [address] 4919 13 Jan, 2014 [facility] [place] [facility] [address] [id number] [place] [address]- 0720 13 Jan, 2014 [facility] [place] [facility] [address] [id number] [place] [address]- 4940 13 Jan, 2014 [facility] [place] [facility] [address] [id number] [place] [address] 4507 13 Jan, 2015 [facility] [place] [facility] [address] [id number] [place] [address] 1552 10 Jan, 2015 [facility] [place] [facility] [address] [id number] [place] [address]- 8595 27 Dec, 2014 [facility] [place] [facility] [address] [id number] [place] [address] 3630 27 Dec, 2014 [facility] [place] [facility] [address] [id number] [place] [address]- 5556 26 Dec, 2014 [facility] [place] [facility] [address] [id number] [place] [address]- 5669 26 Dec, 2014 [facility] [place] [facility] [address] [id number] [place] [address]- 9545 12 Dec, 2014 [facility] [place] [facility] [address] [id number] [place] [address]- 9623 Dec, [facility] [place] [facility] [address] [id number] [place] [address]- 1555 Nov, [facility] [place] [facility] [address] [id number] [place] [address]- 0090 Nov, [facility] [place] [facility] [address] [id number] [place] [address]- 8756 Nov, [facility] [place] [facility] [address] [id number] [place] [address]- 7293 Nov, [facility] [place] [facility] [address] [id number] [place] [address]- 4644 Nov, [facility] [place] [facility] [address] [id number] [place] [address]- 3157 Nov, [facility] [place] [facility] [address] [id number] [place] [address]- 0192 Nov, [facility] [place] [facility] [address] [id number] [place] [address]- 3410 Nov, [facility] [place] [facility] [address] [id number] [place] [address] 9413 Nov, [facility] [place] [facility] [address] [id number] [place] [address]- 3286 Nov, [facility] [place] [facility] [address] [id number], [place] [address] 4427 Nov, [facility] [place] [facility] [address] [id number], [place] [address] 3275 Oct, [facility] [place] [facility] [address] [id number] [place] [address]- 9594 Oct, [facility] [place] [facility] [address] [id number] [place] [address]- 5743 Oct, [facility] [place] [facility] [address] [id number] [place] [address]- 6375 Oct, [facility] [place] [facility] [address] [id number] [place] [address]- 6116 Oct, [facility] [address] [id number] [place] [address]- 5356 Oct, [facility] [place] [facility] [address] [id number] [place] [address]- 2568 Oct, [facility] [place] [facility] [address] [id number] [place] [address]- 6029 Oct, [facility] [place] [facility] [address] [id number] [place] [address]- 7291 Oct, [facility] [place] [facility] [address] [id number] [place] [address]- 8108 Oct, [facility] [place] [facility] [address] [id number] [place] [address]- 6433 Sep, [facility] [place] [facility] [address] [id number] [place] [address]- 0341 Sep, [facility] [place] [facility] [address] [id number] [place] [address]- 6311 Sep, [facility] [place] [facility] [address] [id number] [place] [address]- [address]702 Sep, [facility] [place] [facility] [address] [facility] [id number] [place] [address]- 4571 Sep, [facility] [place] [facility] [address] [id number] [place] [address]- 1952 Sep, [facility] [place] [facility] [address] [id number] [place] [address]- 0937 Sep, [facility] [place] [facility] [address] [id number] [place] [address]- 4267 Sep, [facility] [place] [facility] [address] [id number] [place] [address]- 2045 Sep, [facility] [place] [facility] [address] [id number] [place] [address]- 7768 Sep, [facility] [place] [facility] [address] [id number] [place] [address]- 5638 Sep, [facility] [place] [facility] [address] [id number] [place] [address]- 6881 Sep, [facility] [place] [facility] [address] [id number] [place] [address]- 3860 Sep, [facility] [place] [facility] [address] [id number] [place] [address]- 9987 Aug, [facility] [place] [facility] [address] [id number] [place] [address]- 3565 Aug, [facility] [place] [facility] [address] [id number] [place] [address]- 3941 Aug, [facility] [place] [facility] [address] [id number] [place] [address]- 3273 Aug, [facility] [place] [facility] [address] [id number] [place] [address]- 1725 Aug, [facility] [place] [facility] [address] [id number] [place] [address]- 0259 Aug, [facility] [place] [facility] [address] [id number], [place] [address]- 4665 Aug, [facility] [place] [facility] [address] [id number], [place] [address]- 2149 Aug, [facility] [place] [facility] [address] [id number], [place] [address]- 4245 Aug, [facility] [place] [facility] [address] [id number] [place] [address]- 6846 Aug, [facility] [place] [facility] [address] [id number], [place] [address]- 3390 Aug, [facility] [place] [facility] [address] [id number], [place] [address]- 4818 Aug, [facility] [place] [facility] [address] [id number], [place] [address]- 8637 07 Aug, 2014 [facility] [place] [facility] [address] [id number] [place] [address]- 9384 07 Aug, 2014 [facility] [place] [facility] [address] [id number] [place] [address]- 2231 Aug, [facility] [place] [facility] [address] [id number] [place] [address]- 3817 Aug, [facility] [place] [facility] [address] [id number] [place] [address]- 6871 Aug, [facility] [place] [facility] [address] [id number] [place] [address]- 2347 Aug, [facility] [place] [facility] [address] [id number] [place] [address]- 4515 30 Jul, 2013 [facility] [place] [facility] [address] [id number] [place] [address]- 3265 30 Jul, 2013 [facility] [place] [facility] [address] [id number] [place] [address]- 4007 24 Jul, 2013 [facility] [place] [facility] [address] [id number] [place] [address]- 6960 24 Jul, 2013 [facility] [place] [facility] [address] [id number] [place] [address]- 2543 23 Sep, 2013 [facility] [place] [facility] [address] [id number], [place] [address] 2547 23 Sep, 2013 [facility] [place] [facility] [address] [id number], [place] [address]- 2546 15 Sep, 2013 [facility] [place] [facility] [address] [id number] [place] [address] 2546 15 Sep, 2013 [facility] [place] [facility] [address] [id number] [place] [address]- 2546 15 Jul, 2013 [facility] [place] [facility] [address] [id number] [place] [address]- 2540 15 Jul, 2013 [facility] [place] [facility] [address] [facility] [id number] [place] [address]- 4239 Jul, [facility], [place] [address] [facility] [id number], [place] [address]- 2795 Jul, [facility] [place] [address] [facility] [id number] [place] [address]- 9196 Jul, [facility] [place] [address] [facility] [id number], [place] [address]- 8680 Jul, IMMUNIZATIONS No Known Immunizations SOCIAL HISTORY Never Assessed REASON FOR VISIT EMR-[facility] PLAN OF CARE VITAL SIGNS MEDICATIONS Unknown [...] port during hospital stay 11/2016 Surgical History EGD-negative (Dr. Rubin) 09/2018 Hospitalization History Frequent admission for hyperglycemia/DKA Hospitalization History hyperglycemia 11/27/15 Hospitalization History hyperglycemia, cough 11/2016 Hospitalization History Chest Pain 12/[address] [facility]- Influenza illness, hyperglycemia 2017 Hospitalization History ED [place]- High BS (Pt left AMA) 01/05/2018 Hospitalization History [facility]- DKA and UTI. Discharged 01/14/2018 Hospitalization History ED [place]- Nausea and Vomiting, cannot urinate 01/18/2018 Hospitalization History [facility] 10/06/48 Hospitalization History hyperglycemia 10/23/19-10/24/19 Hospitalization History [facility]- Hyperglycemia 12/2018
--- OUTSIDE RECORDS SUMMARY | 2019-03-08 10:54 | XMS REPORT ---
Author Author Migration, Doctor Organization [facility] Address Unknown Phone Unavailable Care Team Providers Care Fire Alarm Repairer Name Role Phone Migration, Doctor Unavailable Unavailable PROBLEMS Type Condition ICD9-CM Code WCZ49-UO Code Onset Dates Condition Status SNOMED Code Problem Vitamin D deficiency E55.9 Active 81014161 Problem Degenerative disc disease, lumbar M51.36 Active 05747681 Problem Alterations of sensations R20.9 Active 180107899 Problem Primary insomnia F51.01 Active 9901340 Problem Seasonal allergic rhinitis due to pollen J30.1 Active 62122336 Problem 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 Active 129125468 Problem Essential hypertension I10 Active 05863212 Problem Tobacco abuse Z72.0 Active 12038934 Problem CAD (coronary artery disease) I25.10 Active 68446911 Problem Chronic pain syndrome G89.4 Active 145600619 Problem Tobacco abuse counseling Z71.6 Active 970995487 Problem Dental caries K02.9 Active 15508167 Problem DM neuro manif type II E11.49 Active 39603792 Problem Arthritis M19.90 Active 5214111 Problem Other obesity due to excess calories E66.09 Active 484513257 Problem Body mass index (BMI) of 33.0-33.9 in adult Z68.33 Active 282649247 Problem Type 2 diabetes mellitus without complication E11.9 Active 256977274 Problem Fibromyalgia M79.7 Active 10942460 Problem Frequent falls R29.6 Active 922473990 Problem Hyperlipidemia E78.5 Active 83027065 Problem GERD (gastroesophageal reflux disease) K21.9 Active 434770359 Problem Diabetic mononeuropathy associated with type 2 diabetes mellitus E11.41 Active 920267244 Problem Cervicalgia M54.2 Active 65263684 Problem Type 2 diabetes mellitus with hyperglycemia E11.65 Active [id number] Problem Dysphagia, unspecified type R13.10 Active 90001638 ALLERGIES No Information ENCOUNTERS Encounter Location Date Diagnosis [facility] [address] [facility] [id number] [address] Feb, [facility] [id number] [place] [address] 21501- 9602 Jan, [facility] [id number] [place] [address] 62014- 0869 Dec, [facility] [id number] [place] [address] 88489- 3585 Dec, [facility] [address] 75605- 8703 Dec, Dysuria R30.0 [facility] [address] 25209- 6497 Dec, [facility] [id number] [place] [address] 27054- 8554 Dec, Hematuria, unspecified type R31.9 ; Frequent falls R29.6 and Type 2 diabetes mellitus with hyperglycemia E11.65 [facility] [id number] [place] [address] 23317- 6948 Dec, [facility] [id number] [place] [address] 65714 -6168 Dec, Syncope and collapse R55 and Seizure R56.9 [facility] [place] [id number] [place] [address] 47659- 4504 Dec, [facility] [id number] [place] [address] 77424- 6282 Nov, [facility] [id number] [place] [address] 06882- 1191 Nov, [facility] [id number] [place] [address] 08999- 9189 Nov, Type 2 diabetes mellitus with hyperglycemia E11.65 ; Diarrhea, unspecified R19.7 ; Nausea with vomiting, unspecified R11.2 ; Weakness R53.1 ; Hyperlipidemia E78.5 ; Anemia, unspecified type D64.9 and Peripheral edema R60.9 [facility] [place] [id number] [place] [address] 00356- 4760 Nov, [place] [address] 36222- 0917 Oct, DM neuro manif type II E11.49 [facility] [address] 42678- 9996 Oct, [place] [address] 53560- 7608 Oct, GERD (gastroesophageal reflux disease) K21.9 [place] [address] 41930- 9503 Sep, [place] [address] 90497- 8146 Sep, Type 2 diabetes mellitus without complication E11.9 ; Peripheral edema R60.9 ; Weakness R53.1 ; Acute pain of right knee M25.561 ; Degenerative disc disease, lumbar M51.36 ; Fibromyalgia M79.7 and Anemia, unspecified type D64.9 [place] [address] 47960- 0926 Sep, [facility] [id number] [place] [address] 99882- 9329 Sep, [facility] [id number] [place] [address] 19547- 1631 Sep, [place] [address] 79274- 8100 Sep, Type 2 diabetes mellitus with hyperglycemia E11.65 ; Other microscopic hematuria R31.29 ; Nausea and vomiting, intractability of vomiting not specified, unspecified vomiting type R11.2 and Dizziness R42 [facility] [place] [id number] [place] [address] 57632- 7124 08 Sep, 2018 [place] [address] 28390- 8830 Sep, [facility] [id number] [place] [address] 35952- 2834 Sep, GERD (gastroesophageal reflux disease) K21.9 [facility] [id number] [place] [address] 12088- 3593 Aug, [facility] [id number] [place] [address] 59229- 7535 Aug, DM neuro manif type II E11.49 [facility] [id number] [place] [address] 59045- 4578 Aug, [facility] [address] 48993- 4414 Jul, [facility] [id number] [place] [address] 70116- 3901 Jul, Elevated serum creatinine R79.89 [facility] [place] [address] 62187- 0916 Jul, [facility] [id number] [place] [address] 59747- 6016 Jul, [facility] [id number] [place] [address] 49913- 9930 Jul, [facility] [id number] [place] [address] 68642- 2649 Jun, DM neuro manif type II E11.49 ; Hyperlipidemia E78.5 ; GERD (gastroesophageal reflux disease) K21.9 ; Fibromyalgia M79.7 ; 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 ; Chronic pain syndrome G89.4 ; Primary insomnia F51.01 ; Seasonal allergic rhinitis due to pollen J30.1 ; Elevated serum creatinine R79.89 and Dysphagia, unspecified type R13.10 [facility] [id number] [place] [address] 01236- 2535 Apr, Type 2 diabetes mellitus with hyperglycemia E11.65 [place] [id number] [place] [address] 37327- 1564 Apr, Hyperlipidemia E78.5 ; Chronic pain syndrome G89.4 ; Cervicalgia M54.2 ; DM neuro manif type II E11.49 ; nursing home current use of insulin Z79.4 ; Nausea alone R11.0 ; Essential hypertension I10 ; GERD ( gastroesophageal reflux disease) K21.9 ; CAD (coronary artery disease) I25.10 and Diabetic mononeuropathy associated with type 2 diabetes mellitus E11.41 [facility] [place] [address] 45634- 3145 Apr, [facility] [place] [address] 42100- 8771 March, Essential hypertension I10 ; DM neuro manif type II E11.49 and GERD (gastroesophageal reflux disease) K21.9 [facility] [address] 47292- 3364 March, DM neuro manif type II E11.49 and GERD (gastroesophageal reflux disease) K21.9 [facility] [address] 94224- 6568 March, [facility] [address] 52575- 5336 Feb, Tobacco abuse Z72.0 [facility] [place] [address] 70288- 5071 Feb, Tobacco abuse Z72.0 [facility] [place] [address] 15998- 1359 Feb, Hypokalemia E87.6 [facility] [address] 21434- 0739 Feb, Hyperlipidemia E78.5 ; Essential hypertension I10 ; DM neuro manif type II E11.49 ; Fibromyalgia M79.7 ; Acute non-recurrent frontal sinusitis J01.10 ; Other obesity due to excess calories E66.09 and Body mass index (BMI) of 33.0-33.9 in adult Z68.33 [facility] [place] [address] 03119- 3346 05 Jan, 2018 Dysuria R30.0 [facility] [address] 15489- 0889 05 Jan, 2018 Dysuria R30.0 [facility] [id number] [place] [address] 75446- 9255 02 Jan, 2018 Acute cystitis with hematuria N30.01 ; DM neuro manif type II E11.49 ; nursing home current use of insulin Z79.4 ; Essential hypertension I10 and Hospital discharge follow-up Z09 [place] [address] 80623- 9244 27 Dec, 2017 Chest pain, unspecified type R07.9 ; Dehydration E86.0 and Anuria R34 [place] [address] 53659- 2846 Dec, [place] [address] 00929- 3551 22 Dec, 2017 Hyperglycemia R73.9 ; Dehydration E86.0 and Acute cystitis with hematuria N30.01 [facility] [address] 65734 -3059 Dec, [facility] [id number] [place] [address] 24990 -6206 Dec, [facility] [address] 56576 -3803 Dec, [facility] [id number] [place] [address] 75055 -1328 16 Dec, 2017 Dysuria R30.0 ; Acute cystitis with hematuria N30.01 and Weakness R53.1 [facility] [id number] [place] [address] 93518- 5289 09 Dec, 2017 [facility] [id number] [place] [address] 42896- 2188 Nov, [place] [place] [id number] [place] [address] 39138- 5914 Nov, [place] [address] 34984- 4830 Nov, Essential hypertension I10 ; DM neuro manif type II E11.49 ; 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 ; Tobacco abuse Z72.0 ; Hyperlipidemia E78.5 ; Non-adherence to medical treatment Z91.19 ; GERD (gastroesophageal reflux disease) K21.9 ; Degenerative disc disease, lumbar M51.36 ; Fibromyalgia M79.7 ; Chronic pain syndrome G89.4 ; Dental caries K02.9 and Seasonal allergic rhinitis due to pollen J30.1 [place] [address] 42490- 4930 Nov, Alterations of sensations R20.[address] 11313- 4943 Sep, DM neuro manif type II E11.49 ; Hyperlipidemia E78.5 ; Degenerative disc disease, lumbar M51.36 and Chronic pain syndrome G89.4 [facility] [place] [id number] [place] [address] 42995- 2346 Sep, Arthritis M19.[address] 81317- 6864 Sep, Type 2 diabetes mellitus without complication E11.9 ; GERD ( gastroesophageal reflux disease) K21.9 ; Arthritis M19.90 and Chronic pain syndrome G89.4 [facility] [place] [id number] [place] [address] 05088- 6590 Sep, [place] [address] 38683- 5316 Aug, [facility] [place] [address] 14432- 9502 Aug, Type 2 diabetes mellitus without complication E11.9 [facility] [address] 03766- 9858 Aug, [facility] [address] [address]- 2159 Aug, [facility] [id number] [place] [address] 97954- 5570 Aug, [facility] [id number] [place] [address] 77790- 4807 Jul, [facility] [id number] [place] [address] 30157 -9618 22 Jul, 2017 Acute non-recurrent frontal sinusitis J01.10 [facility] [id number] [place] [address] 03880- 9694 20 Jul, 2017 CAD (coronary artery disease) I25.10 and GERD ( gastroesophageal reflux disease) K21.9 [facility] [place] [id number] [place] [address] 56141- 5999 14 Jul, 2017 Localized swelling, mass and lump, neck R22.1 [facility] [place] [id number] [place] [address] 95693- 6820 06 Jul, 2017 [place] [place] [id number] [place] [address] 20869- 8531 Jun, Type 2 diabetes mellitus without complication E11.9 ; Primary insomnia F51.01 ; Alterations of sensations R20.9 ; Hyperlipidemia E78.5 ; GERD (gastroesophageal reflux disease) K21.9 ; Essential hypertension I10 ; 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 ; Tobacco abuse Z72.0 ; Tobacco abuse counseling Z71.6 and CAD (coronary artery disease) I25.10 [facility] [address] [address]- 2366 May, [place] [place] [id number] [place] [address] 91388- 6291 May, Type 2 diabetes mellitus without complication E11.9 [facility] [place] [id number] [place] [address] 39124- 2903 May, [place] [address] [place] [address] 92254- 7387 March, [facility] [id number] [place] [address] 93513- 4662 Feb, [facility] [id number] [place] [address] 16867 -4837 Jan, Acute suppurative otitis media of left ear with spontaneous rupture of tympanic membrane, recurrence not specified H66.012 [facility] [id number] [place] [address] 86702- 5207 17 Dec, 2016 Type 2 diabetes mellitus without complication E11.9 ; Lumbago M54.5 ; Cervicalgia M54.2 ; Hyperlipidemia E78.5 ; GERD ( gastroesophageal reflux disease) K21.9 ; Chronic pain syndrome G89.4 ; Dysuria R30.0 and Essential hypertension I10 [facility] [address] 56633- 0286 Oct, [facility] [id number] [place] [address] 70019- 1885 30 Sep, 2016 Diabetic mononeuropathy associated with type 2 diabetes mellitus E11.41 and Coughing R05 [place] [id number] [place] [address] 11101- 0021 Sep, Diabetic mononeuropathy associated with type 2 diabetes mellitus E11.41 and Coughing R05 [facility] [place] [id number] [place] [address] 11039- 1235 Sep, Onychomycosis B35.1 ; Neuritis M79.2 and Type 2 diabetes mellitus without complication E11.9 [facility] [place] [id number] [place] [address] 93192- 6133 Sep, [place] [address] 19934- 2329 Sep, Cough R05 ; Seasonal allergic rhinitis due to pollen J30.1 and Acute upper respiratory infection, unspecified J06.9 [place] [address] [place] [address] 25833- 9472 Sep, [place] [address] 74612- 6291 Aug, [facility] [place] [id number] [place] [address] 92055- 3016 Jul, Type 2 diabetes mellitus without complication E11.9 ; Chronic pain G89.29 ; Essential hypertension I10 and Acute non-recurrent maxillary sinusitis J01.00 [place] [id number] [place] [address] 53472- 0752 Jul, Chronic pain syndrome G89.4 ; Lumbago M54.5 and Cervicalgia M54.2 [place] [id number] [place] [address] 92819- 0464 Jul, [address] 27376- 1032 Jul, [facility] [place] [id number] [place] [address] 58802- 6623 Jun, Onychomycosis B35.1 ; Onychocryptosis L60.0 and DM neuro manif type II E11.49 [place] [id number] [place] [address] 60023- 2694 Jun, Type 2 diabetes mellitus without complication E11.9 ; Pain in unspecified hip M25.559 ; Other chronic pain G89.29 ; Lumbago M54.5 ; Chronic pain G89.29 ; Insomnia, unspecified G47.00 ; GERD (gastroesophageal reflux disease) K21.9 and Dental caries K02.9 [place] [id number] [place] [address] 44045- 9041 Jun, Type 2 diabetes mellitus without complication E11.9 ; Lumbago M54.5 ; Chronic pain G89.29 ; Insomnia, unspecified G47.00 ; GERD ( gastroesophageal reflux disease) K21.9 ; Dental caries K02.9 ; Pain in unspecified hip M25.559 and Other chronic pain G89.29 [place] [address] [address]- 5783 May, [facility] [id number] [place] [address] 46849- 9471 May, Type 2 diabetes mellitus without complication E11.9 ; Essential hypertension I10 ; Chronic pain syndrome G89.4 ; Other seasonal allergic rhinitis J30.2 and Insomnia, unspecified G47.00 [facility] [place] [id number] [place] [address] 92041- 8576 Apr, [place] [address] [place] [address] 22925- 2555 Apr, Hypertension I10 and Chronic pain G89.29 [place] [address] [place] [address] 87330- 6492 March, Onychomycosis B35.1 ; Onychocryptosis L60.0 and Type 2 diabetes mellitus without complication E11.9 [place] [address] [place] [address] 85126- 2598 March, Type 2 diabetes mellitus without complication E11.9 ; Essential hypertension I10 ; Alterations of sensations R20.9 ; Chronic pain syndrome G89.4 ; Tobacco abuse Z72.0 and Tobacco abuse counseling Z71.6 [address] [place] [address] 53229- 6665 Feb, Cough R05 ; Type 2 diabetes mellitus without complication E11.9 ; Tobacco abuse counseling Z71.6 and Chronic pain G89.29 [place] [address] [place] [address] 82491- 8746 Feb, [address] [place] [address] 33088- 4079 Feb, Type 2 diabetes mellitus without complication E11.9 ; Lumbago M54.5 ; Cervicalgia M54.2 ; Degenerative disc disease, lumbar M51.36 and Numbness and tingling of both legs 782.0 [facility] [id number] [place] [address] [id number] Jan, Dental caries K02.9 and Encounter for dental examination Z01.20 [facility] [place] [address] 60149- 5471 Jan, Type 2 diabetes mellitus without complication E11.9 [place] [address] 58360- 0597 Jan, Type 2 diabetes mellitus without complication E11.9 ; Numbness and tingling of both legs 782.0 ; Fibromyalgia M79.7 ; Hyperlipidemia E78.5 ; Lumbago M54.5 ; Cervicalgia M54.2 ; Hypertension I10 ; CAD (coronary artery disease) I25.10 ; Tobacco abuse Z72.0 ; Tobacco abuse counseling Z71.6 and GERD (gastroesophageal reflux disease) K21.9 [facility] [id number] [place] [address] 92006- 4108 Jan, [facility] [id number] [place] [address] 08737- 0517 Dec, [facility] [id number] [place] [address] [id number] Dec, Dental examination Z01.20 and Dental caries K02.9 [facility] [place] [id number] [place] [address] 38976- 9452 Dec, Edema R60.9 ; Type 2 diabetes mellitus without complication E11.9 ; Hypertension I10 and Mouth pain K13.79 [place] [id number] [place] [address] 82385- 7618 Dec, Degenerative disc disease, lumbar M51.[address] 77466- 3013 Dec, [facility] [place] [id number] [place] [address] 26512- 1865 Nov, Insomnia, unspecified G47.00 [place] [address] 28203- 2989 Nov, Type 2 diabetes mellitus without complication E11.9 ; Lumbago M54.5 ; Degenerative disc disease, lumbar M51.36 ; Fibromyalgia M79.7 ; Coronary artery disease I25.10 ; Hyperlipidemia E78.5 ; Controlled substance agreement signed Z79.899 ; Dysuria R30.0 ; Insomnia, unspecified G47.00 ; GERD ( gastroesophageal reflux disease) K21.9 ; Hypertension 401.9 and nursing home current use of insulin Z79.4 [place] [address] 13978- 2919 Nov, [place] [address] 85533- 7206 Oct, Degenerative disc disease, lumbar M51.36 ; Cervicalgia M54.2 ; Insomnia, unspecified G47.00 ; Decreased GFR R94.4 and GERD ( gastroesophageal reflux disease) K21.9 [place] [address] 34731- 8987 Oct, Lumbago M54.5 [facility] [address] 25943- 4232 Oct, Low back pain M54.5 [facility] [id number] [place] [address] 92984- 6391 Oct, [facility] [id number] [place] [address] 86023- 1411 Oct, Disorientation R41.0 [facility] [address] 22137- 6707 Oct, Type 2 diabetes mellitus without complication E11.9 ; Disorientation R41.0 and Chest pain R07.9 [place] [place] [address] 82547- 2537 Oct, [place] [address] 75961- 2355 Sep, Low back pain M54.5 [facility] [id number] [place] [address] 40047- 7522 Sep, Insomnia, unspecified G47.00 [facility] [address] 31032- 4995 Aug, Degenerative disc disease, lumbar M51.36 ; Type 2 diabetes mellitus without complication E11.9 and Encounter for immunization Z23 [facility] [address] 80945- 6841 Aug, [facility] [address] 39748- 7333 Aug, [facility] [address] 21335- 9739 Aug, [facility] [address] 02048- 4331 Jul, [facility] [address] 56474- 9662 Jun, [facility] [address] 45021- 4364 Jun, Chest pain 786.50 and Lumbago 724.2 [facility] [id number] [place] [address] 71867- 4349 Jun, [facility] [id number] [place] [address] 77894- 0524 Jun, [facility] [id number] [place] [address] [id number] Jun, Dental examination V72.2 [facility] [address] 50919- 9240 Jun, [facility] [id number] [place] [address] 09873- 5496 May, Left shoulder pain 719.41 and Numbness and tingling of both legs 782.0 [facility] [id number] [place] [address] 11127- 2866 May, Cough 786.2 ; Numbness and tingling of both legs 782.0 and Acute rhinitis 460 [facility] [id number] [address]- 1264 May, [facility] [id number] [place] [address] 29244- 1511 Apr, [facility] [id number] [place] [address] 85864- 3177 Apr, Bilateral lower extremity edema 782.3 ; Lumbago 724.2 and Insomnia 780.52 [facility] [id number] [place] [address] 62139- 4832 Apr, [facility] [id number] [place] [address] 94006- 3643 Apr, [facility] [id number] [place] [address] 32276- 3218 March, Seborrheic keratosis 702.19 and Skin lesion of face 709.9 [facility] [id number] [place] [address] 24514- 3882 March, [facility] [id number] [place] [address] 74500- 8850 March, [facility] [id number] [address] March, [facility] [id number] [place] [address] 73264- 6479 March, [facility] [id number] [place] [address] 02451- 6468 Feb, [facility] [id number] [place] [address] [id number] Feb, [facility] [id number] [address] Jan, [facility] [id number] [place] [address] 25 Jan, 2014 [facility] [place] [facility] [address] [id number] [place] [address] 16 Jan, 2014 [facility] [place] [facility] [address] [id number] [place] [address] 16 Jan, 2014 [facility] [place] [facility] [address] [id number] [place] [address]- 2723 16 Jan, 2014 [facility] [place] [facility] [address] [id number] [place] [address]- 7661 16 Jan, 2014 [facility] [place] [facility] [address] [id number] [place] [address]- 4063 13 Jan, 2014 [facility] [place] [facility] [address] [id number] [place] [address]- [address]33 13 Jan, 2014 [facility] [place] [facility] [address] [id number] [place] [address] 13 Jan, 2014 [facility] [place] [facility] [address] [id number] [place] [address] 13 Jan, 2015 [facility] [place] [facility] [address] [id number] [place] [address] 10 Jan, 2015 [facility] [place] [facility] [address] [id number] [place] [address] 27 Dec, 2014 [facility] [place] [facility] [address] [id number] [place] [address] 27 Dec, 2014 [facility] [place] [facility] [address] [id number] [place] [address] 26 Dec, 2014 [facility] [place] [facility] [address] [id number] [place] [address]- 280[address] 26 Dec, 2014 [facility] [place] [facility] [address] [id number] [place] [address] 138[address] 12 Dec, 2014 [facility] [place] [facility] [address] [id number] [place] [address] Dec, [facility] [place] [facility] [address] [id number] [place] [address] Nov, [facility] [place] [facility] [address] [id number] [place] [address] Nov, [facility] [place] [facility] [address] [id number] [place] [address] Nov, [facility] [place] [facility] [address] [id number] [place] [address] Nov, [facility] [place] [facility] [address] [id number] [place] [address] Nov, [facility] [place] [facility] [address] [id number] [place] [address] Nov, [facility] [place] [facility] [address] [id number] [place] [address]183 Nov, [facility] [place] [facility] [address] [id number] [place] [address] Nov, [facility] [place] [facility] [address] [id number] [place] [address]- [address] Nov, [facility] [place] [facility] [address] [id number] [place] [address] 6687 Nov, [facility] [place] [facility] [address] [id number] [address] Nov, [facility] [place] [facility] [address] [id number] [address] Oct, [facility] [place] [facility] [address] [id number] [place] [address] Oct, [facility] [place] [facility] [address] [id number] [place] [address]- [address]28 Oct, [facility] [place] [facility] [address] [id number] [place] [address]61 Oct, [facility] [place] [facility] [address] [id number] [place] [address] Oct, [facility] [address] [id number] [place] [address] 37[address] Oct, [facility] [place] [facility] [address] [id number] [place] [address] Oct, [facility] [place] [facility] [address] [id number] [place] [address]- 7966 Oct, [facility] [place] [facility] [address] [id number] [place] [address] 6446 Oct, [facility] [place] [facility] [address] [id number] [place] [address] Oct, [facility] [place] [facility] [address] [id number] [place] [address] Sep, [facility] [place] [facility] [address] [id number] [place] [address] 4464 Sep, [facility] [place] [facility] [address] [id number] [place] [address] 365[address] Sep, [facility] [place] [facility] [address] [id number] [place] [address] Sep, [facility] [place] [facility] [address] [facility] [id number] [place] [address] Sep, [facility] [place] [facility] [address] [id number] [place] [address] 6716 Sep, [facility] [place] [facility] [address] [id number] [place] [address]- 7977 Sep, [facility] [place] [facility] [address] [id number] [place] [address]- [address]52 Sep, [facility] [place] [facility] [address] [id number] [place] [address] 6976 Sep, [facility] [place] [facility] [address] [id number] [place] [address] 9010 Sep, [facility] [place] [facility] [address] [id number] [place] [address] 45[address] Sep, [facility] [place] [facility] [address] [id number] [place] [address] 2601 Sep, [facility] [place] [facility] [address] [id number] [place] [address] Sep, [facility] [place] [facility] [address] [id number] [place] [address]27 Aug, [facility] [place] [facility] [address] [id number] [place] [address] 8461 Aug, [facility] [place] [facility] [address] [id number] [place] [address]278 Aug, [facility] [place] [facility] [address] [id number] [place] [address]486 Aug, [facility] [place] [facility] [address] [id number] [place] [address]- 7938 Aug, [facility] [place] [facility] [address] [id number] [place] [address] 1367 Aug, [facility] [place] [facility] [address] [id number][place] [address] Aug, [facility] [place] [facility] [address] [id number][place] [address] Aug, [facility] [place] [facility] [address] [id number], [place] [address] Aug, [facility] [place] [facility] [address] [id number] [place] [address]- [address]047 Aug, [facility] [place] [facility] [address] [id number], [place] [address] Aug, [facility] [place] [facility] [address] [id number], [place] [address] Aug, [facility] [place] [facility] [address] [id number], [place] [address] 07 Aug, 2014 [facility] [place] [facility] [address] [id number] [place] [address]- 8860 07 Aug, 2014 [facility] [place] [facility] [address] [id number] [place] [address]- [address]365 Aug, [facility] [place] [facility] [address] [id number] [place] [address]- 4851 Aug, [facility] [place] [facility] [address] [id number] [place] [address]- [address]855 Aug, [facility] [place] [facility] [address] [id number] [place] [address]- 1530 Aug, [facility] [place] [facility] [address] [id number] [place] [address]- 2942 30 Jul, 2013 [facility] [place] [facility] [address] [id number] [place] [address]- 8939 30 Jul, 2013 [facility] [place] [facility] [address] [id number] [place] [address]- 6386 24 Jul, 2013 [facility] [place] [facility] [address] [id number] [place] [address]- 0185 24 Jul, 2013 [facility] [place] [facility] [address] [id number] [place] [address]- 2543 23 Sep, 2013 [facility] [place] [facility] [address] [id number], [place] [address] 2549 23 Sep, 2013 [facility] [place] [facility] [address] [id number], [place] [address]- [address]46 15 Sep, 2013 [facility] [place] [facility] [address] [id number] [place] [address] 2546 15 Sep, 2013 [facility] [place] [facility] [address] [id number] [place] [address]- 2546 15 Jul, 2013 [facility] [place] [facility] [address] [id number] [place] [address]- [address] 15 Jul, 2013 [facility] [place] [facility] [address] [facility] [id number] [place] [address] Jul, [facility] [address] [facility] [id number], [place] [address] Jul, [facility] [address] [facility] [id number] [place] [address]- 8788 Jul, [facility] [address] [facility] [id number], [place] [address] Jul, IMMUNIZATIONS No Known Immunizations SOCIAL HISTORY Never Assessed REASON FOR VISIT EMR-[facility] [place] PLAN OF CARE VITAL SIGNS MEDICATIONS Unknown [...] r/t DDD Medical History fibromyalgia Medical History [place]-stent to [facility] Surgical History cholecystectomy 1983 Surgical [...] Influenza illness, hyperglycemia 2017 Hospitalization History [facility]- High BS (Pt left AMA) 01/05/2018 Hospitalization History [facility]- DKA and UTI. Discharged 01/14/2018 Hospitalization History [facility]- Nausea and Vomiting, cannot urinate 01/18/2018 Hospitalization History [facility] 10/06/48 Hospitalization History hyperglycemia 10/23/19-10/24/19 Hospitalization History [facility]- Hyperglycemia 12/2018
[2019-03-08] MEDS ORDERED: D5 LR IV SOLUTION 1,000 ML IV ONE (10:55)
--- OUTSIDE RECORDS SUMMARY | 2019-03-08 10:55 | XMS REPORT ---
Author Author Migration, Doctor Organization [facility] Address Unknown Phone Unavailable Care Team Providers Care Campaign Management Senior Manager Name Role Phone Migration, Doctor Unavailable Unavailable PROBLEMS Type Condition ICD9-CM Code VLN95-BC Code Onset Dates Condition Status SNOMED Code Problem Vitamin D deficiency E55.9 Active 25554226 Problem Degenerative disc disease, lumbar M51.36 Active 03873467 Problem Alterations of sensations R20.9 Active 493240229 Problem Primary insomnia F51.01 Active 1184096 Problem Seasonal allergic rhinitis due to pollen J30.1 Active 49888621 Problem 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 Active 151530162 Problem Essential hypertension I10 Active 32097599 Problem Tobacco abuse Z72.0 Active 31452465 Problem CAD (coronary artery disease) I25.10 Active 89387540 Problem Chronic pain syndrome G89.4 Active 811013615 Problem Tobacco abuse counseling Z71.6 Active 241546194 Problem Dental caries K02.9 Active 27989004 Problem DM neuro manif type II E11.49 Active 89105627 Problem Arthritis M19.90 Active 2206925 Problem Other obesity due to excess calories E66.09 Active 710320049 Problem Body mass index (BMI) of 33.0-33.9 in adult Z68.33 Active 207023834 Problem Type 2 diabetes mellitus without complication E11.9 Active 428657926 Problem Fibromyalgia M79.7 Active 71759133 Problem Frequent falls R29.6 Active 950622655 Problem Hyperlipidemia E78.5 Active 57886877 Problem GERD (gastroesophageal reflux disease) K21.9 Active 819468470 Problem Diabetic mononeuropathy associated with type 2 diabetes mellitus E11.41 Active 051783590 Problem Cervicalgia M54.2 Active 32101017 Problem Type 2 diabetes mellitus with hyperglycemia E11.65 Active [id number] Problem Dysphagia, unspecified type R13.10 Active 87724970 ALLERGIES No Information ENCOUNTERS Encounter Location Date Diagnosis [facility] [address] [facility] [id number] [address] Feb, [facility] [id number] [place] [address] 31342- 9980 Jan, [facility] [id number] [place] [address] 22192- 4671 Dec, [facility] [id number] [place] [address] 75470- 1060 Dec, [facility] [address] 37760- 8974 Dec, Dysuria R30.0 [place] [address] 12755- 0079 Dec, [facility] [id number] [place] [address] 68528- 3511 Dec, Hematuria, unspecified type R31.9 ; Frequent falls R29.6 and Type 2 diabetes mellitus with hyperglycemia E11.65 [facility] [id number] [place] [address] 44484- 9195 Dec, [facility] [id number] [place] [address] 15759 -3971 Dec, Syncope and collapse R55 and Seizure R56.9 [place] [id number] [place] [address] 48993- 0264 Dec, [facility] [id number] [place] [address] 08340- 6968 Nov, [facility] [id number] [place] [address] 46501- 6088 Nov, [facility] [id number] [place] [address] 95066- 1657 Nov, Type 2 diabetes mellitus with hyperglycemia E11.65 ; Diarrhea, unspecified R19.7 ; Nausea with vomiting, unspecified R11.2 ; Weakness R53.1 ; Hyperlipidemia E78.5 ; Anemia, unspecified type D64.9 and Peripheral edema R60.9 [place] [id number] [place] [address] 69481- 2620 Nov, [place] [address] 25841- 2273 Oct, DM neuro manif type II E11.49 [place] [address] 24890- 1136 Oct, [place] [address] 38364- 1214 Oct, GERD (gastroesophageal reflux disease) K21.9 [place] [address] 87828- 8996 Sep, [place] [address] 82467- 4949 Sep, Type 2 diabetes mellitus without complication E11.9 ; Peripheral edema R60.9 ; Weakness R53.1 ; Acute pain of right knee M25.561 ; Degenerative disc disease, lumbar M51.36 ; Fibromyalgia M79.7 and Anemia, unspecified type D64.9 [place] [address] 81916- 4835 Sep, [place] [id number] [place] [address] 29959- 2670 Sep, [place] [id number] [place] [address] 60280- 8644 Sep, [place] [address] 45579- 2559 Sep, Type 2 diabetes mellitus with hyperglycemia E11.65 ; Other microscopic hematuria R31.29 ; Nausea and vomiting, intractability of vomiting not specified, unspecified vomiting type R11.2 and Dizziness R42 [place] [id number] [place] [address] 72617- 3302 08 Sep, 2018 [place] [address] 05555- 3201 Sep, [facility] [id number] [place] [address] 18881- 3686 Sep, GERD (gastroesophageal reflux disease) K21.9 [facility] [id number] [place] [address] 96099- 0676 Aug, [facility] [id number] [place] [address] 94833- 8352 Aug, DM neuro manif type II E11.49 [facility] [id number] [place] [address] 02459- 1371 Aug, [facility] [address] 38037- 1639 Jul, [facility] [id number] [place] [address] 84660- 6783 Jul, Elevated serum creatinine R79.89 [place] [address] 72554- 9087 Jul, [facility] [id number] [place] [address] 00715- 6873 Jul, [facility] [id number] [place] [address] 70139- 3906 Jul, [facility] [id number] [place] [address] 50246- 8212 Jun, DM neuro manif type II E11.49 ; Hyperlipidemia E78.5 ; GERD (gastroesophageal reflux disease) K21.9 ; Fibromyalgia M79.7 ; 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 ; Chronic pain syndrome G89.4 ; Primary insomnia F51.01 ; Seasonal allergic rhinitis due to pollen J30.1 ; Elevated serum creatinine R79.89 and Dysphagia, unspecified type R13.10 [facility] [id number] [place] [address] 84952- 3766 Apr, Type 2 diabetes mellitus with hyperglycemia E11.65 [place] [id number] [place] [address] 71923- 9261 Apr, Hyperlipidemia E78.5 ; Chronic pain syndrome G89.4 ; Cervicalgia M54.2 ; DM neuro manif type II E11.49 ; residential current use of insulin Z79.4 ; Nausea alone R11.0 ; Essential hypertension I10 ; GERD ( gastroesophageal reflux disease) K21.9 ; CAD (coronary artery disease) I25.10 and Diabetic mononeuropathy associated with type 2 diabetes mellitus E11.41 [place] [address] 30432- 5379 Apr, [place] [address] 04786- 5756 March, Essential hypertension I10 ; DM neuro manif type II E11.49 and GERD (gastroesophageal reflux disease) K21.9 [place] [address] 89609- 6026 March, DM neuro manif type II E11.49 and GERD (gastroesophageal reflux disease) K21.9 [place] [address] 02930- 8768 March, [place] [address] 17588- 0334 Feb, Tobacco abuse Z72.0 [place] [address] 53056- 3592 Feb, Tobacco abuse Z72.0 [place] [address] 93748- 1111 Feb, Hypokalemia E87.6 [place] [address] 10635- 4154 Feb, Hyperlipidemia E78.5 ; Essential hypertension I10 ; DM neuro manif type II E11.49 ; Fibromyalgia M79.7 ; Acute non-recurrent frontal sinusitis J01.10 ; Other obesity due to excess calories E66.09 and Body mass index (BMI) of 33.0-33.9 in adult Z68.33 [place] [address] 81921- 7088 05 Jan, 2018 Dysuria R30.0 [facility] [address] 19333- 3978 05 Jan, 2018 Dysuria R30.0 [facility] [id number] [place] [address] 10807- 1863 02 Jan, 2018 Acute cystitis with hematuria N30.01 ; DM neuro manif type II E11.49 ; residential current use of insulin Z79.4 ; Essential hypertension I10 and Hospital discharge follow-up Z09 [place] [address] 31504- 5188 27 Dec, 2017 Chest pain, unspecified type R07.9 ; Dehydration E86.0 and Anuria R34 [place] [address] 97241- 3922 Dec, [place] [address] 91728- 3499 22 Dec, 2017 Hyperglycemia R73.9 ; Dehydration E86.0 and Acute cystitis with hematuria N30.01 [facility] [address] 01650 -4389 Dec, [facility] [id number] [place] [address] 75629 -1054 Dec, [facility] [address] 88829 -8541 Dec, [facility] [id number] [place] [address] 59009 -5182 16 Dec, 2017 Dysuria R30.0 ; Acute cystitis with hematuria N30.01 and Weakness R53.1 [facility] [id number] [place] [address] 20454- 2859 09 Dec, 2017 [facility] [id number] [place] [address] 11249- 2144 Nov, [place] [id number] [place] [address] 43251- 0682 Nov, [place] [address] 68603- 2820 Nov, Essential hypertension I10 ; DM neuro manif type II E11.49 ; 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 ; Tobacco abuse Z72.0 ; Hyperlipidemia E78.5 ; Non-adherence to medical treatment Z91.19 ; GERD (gastroesophageal reflux disease) K21.9 ; Degenerative disc disease, lumbar M51.36 ; Fibromyalgia M79.7 ; Chronic pain syndrome G89.4 ; Dental caries K02.9 and Seasonal allergic rhinitis due to pollen J30.1 [place] [address] 69679- 2096 Nov, Alterations of sensations R20.[address] 38528- 8646 Sep, DM neuro manif type II E11.49 ; Hyperlipidemia E78.5 ; Degenerative disc disease, lumbar M51.36 and Chronic pain syndrome G89.4 [place] [id number] [place] [address] 01296- 2595 Sep, Arthritis M19.[address] 72581- 3632 Sep, Type 2 diabetes mellitus without complication E11.9 ; GERD ( gastroesophageal reflux disease) K21.9 ; Arthritis M19.90 and Chronic pain syndrome G89.4 [place] [id number] [place] [address] 17261- 9266 Sep, [place] [address] 02988- 6254 Aug, [place] [address] 64958- 2199 Aug, Type 2 diabetes mellitus without complication E11.9 [place] [address] 24048- 6711 Aug, [facility] [address] [address]- 0708 Aug, [facility] [id number] [place] [address] 84569- 0230 Aug, [facility] [id number] [place] [address] 66030- 6887 Jul, [facility] [id number] [place] [address] 73751 -0094 22 Jul, 2017 Acute non-recurrent frontal sinusitis J01.10 [facility] [id number] [place] [address] 46903- 0868 20 Jul, 2017 CAD (coronary artery disease) I25.10 and GERD ( gastroesophageal reflux disease) K21.9 [place] [id number] [place] [address] 27032- 5003 14 Jul, 2017 Localized swelling, mass and lump, neck R22.1 [place] [id number] [place] [address] 15145- 6639 06 Jul, 2017 [place] [id number] [place] [address] 88638- 8764 Jun, Type 2 diabetes mellitus without complication E11.9 ; Primary insomnia F51.01 ; Alterations of sensations R20.9 ; Hyperlipidemia E78.5 ; GERD (gastroesophageal reflux disease) K21.9 ; Essential hypertension I10 ; 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 ; Tobacco abuse Z72.0 ; Tobacco abuse counseling Z71.6 and CAD (coronary artery disease) I25.10 [facility] [address] [address]- 5190 May, [place] [id number] [place] [address] 35035- 1738 May, Type 2 diabetes mellitus without complication E11.9 [place] [id number] [place] [address] 26245- 0542 May, [place] [address] [place] [address] 80430- 7301 March, [facility] [id number] [place] [address] 76462- 4992 Feb, [facility] [id number] [place] [address] 54457 -7558 Jan, Acute suppurative otitis media of left ear with spontaneous rupture of tympanic membrane, recurrence not specified H66.012 [facility] [id number] [place] [address] 94678- 1033 17 Dec, 2016 Type 2 diabetes mellitus without complication E11.9 ; Lumbago M54.5 ; Cervicalgia M54.2 ; Hyperlipidemia E78.5 ; GERD ( gastroesophageal reflux disease) K21.9 ; Chronic pain syndrome G89.4 ; Dysuria R30.0 and Essential hypertension I10 [place] [address] 99501- 7985 Oct, [place] [id number] [place] [address] 67020- 4140 30 Sep, 2016 Diabetic mononeuropathy associated with type 2 diabetes mellitus E11.41 and Coughing R05 [place] [id number] [place] [address] 90507- 0234 Sep, Diabetic mononeuropathy associated with type 2 diabetes mellitus E11.41 and Coughing R05 [place] [id number] [place] [address] 36130- 1802 Sep, Onychomycosis B35.1 ; Neuritis M79.2 and Type 2 diabetes mellitus without complication E11.9 [place] [id number] [place] [address] 14167- 4132 Sep, [place] [address] 22878- 6818 Sep, Cough R05 ; Seasonal allergic rhinitis due to pollen J30.1 and Acute upper respiratory infection, unspecified J06.9 [place] [address] [place] [address] 99298- 0362 Sep, [place] [address] 47051- 5362 Aug, [place] [id number] [place] [address] 59652- 4500 Jul, Type 2 diabetes mellitus without complication E11.9 ; Chronic pain G89.29 ; Essential hypertension I10 and Acute non-recurrent maxillary sinusitis J01.00 [place] [id number] [place] [address] 76325- 7118 Jul, Chronic pain syndrome G89.4 ; Lumbago M54.5 and Cervicalgia M54.2 [place] [id number] [place] [address] 65251- 0304 Jul, [address] 11048- 6820 Jul, [place] [id number] [place] [address] 64014- 3449 Jun, Onychomycosis B35.1 ; Onychocryptosis L60.0 and DM neuro manif type II E11.49 [place] [id number] [place] [address] 05139- 4541 Jun, Type 2 diabetes mellitus without complication E11.9 ; Pain in unspecified hip M25.559 ; Other chronic pain G89.29 ; Lumbago M54.5 ; Chronic pain G89.29 ; Insomnia, unspecified G47.00 ; GERD (gastroesophageal reflux disease) K21.9 and Dental caries K02.9 [place] [id number] [place] [address] 37576- 8906 Jun, Type 2 diabetes mellitus without complication E11.9 ; Lumbago M54.5 ; Chronic pain G89.29 ; Insomnia, unspecified G47.00 ; GERD ( gastroesophageal reflux disease) K21.9 ; Dental caries K02.9 ; Pain in unspecified hip M25.559 and Other chronic pain G89.29 [place] [address] [address]- 5725 May, [place] [id number] [place] [address] 89260- 0723 May, Type 2 diabetes mellitus without complication E11.9 ; Essential hypertension I10 ; Chronic pain syndrome G89.4 ; Other seasonal allergic rhinitis J30.2 and Insomnia, unspecified G47.00 [place] [id number] [place] [address] 52139- 8479 Apr, [place] [address] [place] [address] 49662- 7720 Apr, Hypertension I10 and Chronic pain G89.29 [place] [address] [place] [address] 48202- 4248 March, Onychomycosis B35.1 ; Onychocryptosis L60.0 and Type 2 diabetes mellitus without complication E11.9 [place] [address] [place] [address] 87032- 2119 March, Type 2 diabetes mellitus without complication E11.9 ; Essential hypertension I10 ; Alterations of sensations R20.9 ; Chronic pain syndrome G89.4 ; Tobacco abuse Z72.0 and Tobacco abuse counseling Z71.6 [address] [place] [address] 60650- 0151 Feb, Cough R05 ; Type 2 diabetes mellitus without complication E11.9 ; Tobacco abuse counseling Z71.6 and Chronic pain G89.29 [place] [address] [place] [address] 38530- 4288 Feb, [address] [place] [address] 21983- 6617 Feb, Type 2 diabetes mellitus without complication E11.9 ; Lumbago M54.5 ; Cervicalgia M54.2 ; Degenerative disc disease, lumbar M51.36 and Numbness and tingling of both legs 782.0 [facility] [id number] [place] [address] [id number] Jan, Dental caries K02.9 and Encounter for dental examination Z01.20 [place] [address] 01611- 7655 Jan, Type 2 diabetes mellitus without complication E11.9 [place] [address] 28433- 6255 Jan, Type 2 diabetes mellitus without complication E11.9 ; Numbness and tingling of both legs 782.0 ; Fibromyalgia M79.7 ; Hyperlipidemia E78.5 ; Lumbago M54.5 ; Cervicalgia M54.2 ; Hypertension I10 ; CAD (coronary artery disease) I25.10 ; Tobacco abuse Z72.0 ; Tobacco abuse counseling Z71.6 and GERD (gastroesophageal reflux disease) K21.9 [place] [id number] [place] [address] 78687- 8659 Jan, [place] [id number] [place] [address] 16805- 4330 Dec, [facility] [id number] [place] [address] [id number] Dec, Dental examination Z01.20 and Dental caries K02.9 [place] [id number] [place] [address] 45995- 7091 Dec, Edema R60.9 ; Type 2 diabetes mellitus without complication E11.9 ; Hypertension I10 and Mouth pain K13.79 [place] [id number] [place] [address] 07083- 8115 Dec, Degenerative disc disease, lumbar M51.[address] 46106- 4114 Dec, [place] [id number] [place] [address] 26403- 1637 Nov, Insomnia, unspecified G47.00 [place] [address] 00746- 0511 Nov, Type 2 diabetes mellitus without complication E11.9 ; Lumbago M54.5 ; Degenerative disc disease, lumbar M51.36 ; Fibromyalgia M79.7 ; Coronary artery disease I25.10 ; Hyperlipidemia E78.5 ; Controlled substance agreement signed Z79.899 ; Dysuria R30.0 ; Insomnia, unspecified G47.00 ; GERD ( gastroesophageal reflux disease) K21.9 ; Hypertension 401.9 and residential current use of insulin Z79.4 [place] [address] 90543- 4352 Nov, [place] [address] 13723- 5605 Oct, Degenerative disc disease, lumbar M51.36 ; Cervicalgia M54.2 ; Insomnia, unspecified G47.00 ; Decreased GFR R94.4 and GERD ( gastroesophageal reflux disease) K21.9 [place] [address] 91891- 5542 Oct, Lumbago M54.5 [place] [address] 29978- 7216 Oct, Low back pain M54.5 [place] [id number] [place] [address] 42624- 0273 Oct, [place] [id number] [place] [address] 61148- 2602 Oct, Disorientation R41.0 [place] [address] 67058- 3889 Oct, Type 2 diabetes mellitus without complication E11.9 ; Disorientation R41.0 and Chest pain R07.9 [place] [address] 06041- 3729 Oct, [place] [address] 12843- 3252 Sep, Low back pain M54.5 [place] [id number] [place] [address] 96172- 2735 Sep, Insomnia, unspecified G47.00 [facility] [address] 85202- 1310 Aug, Degenerative disc disease, lumbar M51.36 ; Type 2 diabetes mellitus without complication E11.9 and Encounter for immunization Z23 [facility] [address] 21930- 9946 Aug, [facility] [address] 57418- 9865 Aug, [facility] [address] 69779- 3442 Aug, [facility] [address] 40043- 6853 Jul, [facility] [address] 14694- 9336 Jun, [facility] [address] 34650- 9733 Jun, Chest pain 786.50 and Lumbago 724.2 [facility] [id number] [place] [address] 41834- 6604 Jun, [facility] [id number] [place] [address] 51636- 2591 Jun, [facility] [id number] [place] [address] [id number] Jun, Dental examination V72.2 [facility] [address] 33995- 3691 Jun, [facility] [id number] [place] [address] 10373- 0322 May, Left shoulder pain 719.41 and Numbness and tingling of both legs 782.0 [facility] [id number] [place] [address] 10559- 7530 May, Cough 786.2 ; Numbness and tingling of both legs 782.0 and Acute rhinitis 460 [facility] [id number] [address]- 2058 May, [facility] [id number] [place] [address] 44903- 3996 Apr, [facility] [id number] [place] [address] 82759- 5408 Apr, Bilateral lower extremity edema 782.3 ; Lumbago 724.2 and Insomnia 780.52 [facility] [id number] [place] [address] 63053- 3607 Apr, [facility] [id number] [place] [address] 61956- 3561 Apr, [facility] [id number] [place] [address] 20414- 4736 March, Seborrheic keratosis 702.19 and Skin lesion of face 709.9 [facility] [address] [place] [address] 03083- 9315 March, [facility] [id number] [place] [address] [phone] March, [facility] [id number] [address] March, [facility] [id number] [place] [address] [phone]- [phone] March, [facility] [id number] [place] [address] [phone] Feb, [facility] [id number] [place] [address] [id number] Feb, [facility] [id number] [address] Jan, [facility] [address] [id number] [place] [address] 25 Jan, 2014 [facility] [place] [facility] [address] [id number] [place] [address] 16 Jan, 2014 [facility] [place] [facility] [address] [id number] [place] [address] 16 Jan, 2014 [facility] [place] [facility] [address] [id number] [place] [address] 16 Jan, 2014 [facility] [place] [facility] [address] [id number] [place] [address] 16 Jan, 2014 [facility] [place] [facility] [address] [id number] [place] [address] 13 Jan, 2014 [facility] [place] [facility] [address] [id number] [place] [address] 13 Jan, 2014 [facility] [place] [facility] [address] [id number] [place] [address] 13 Jan, 2014 [facility] [place] [facility] [address] [id number] [place] [address]26 13 Jan, 2015 [facility] [place] [facility] [address] [id number] [place] [address]39 10 Jan, 2015 [facility] [place] [facility] [address] [id number] [place] [address] 27 Dec, 2014 [facility] [place] [facility] [address] [id number] [place] [address] 3543 27 Dec, 2014 [facility] [place] [facility] [address] [id number] [place] [address] 4075 26 Dec, 2014 [facility] [place] [facility] [address] [id number] [place] [address] 6656 26 Dec, 2014 [facility] [place] [facility] [address] [id number] [place] [address] 8584 12 Dec, 2014 [facility] [place] [facility] [address] [id number] [place] [address] 1247 Dec, [facility] [place] [facility] [address] [id number] [place] [address]86 Nov, [facility] [place] [facility] [address] [id number] [place] [address] Nov, [facility] [place] [facility] [address] [id number] [place] [address] 3071 Nov, [facility] [place] [facility] [address] [id number] [place] [address] 6474 Nov, [facility] [place] [facility] [address] [id number] [place] [address] 8597 Nov, [facility] [place] [facility] [address] [id number] [place] [address] 3696 Nov, [facility] [place] [facility] [address] [id number] [place] [address] 1610 Nov, [facility] [place] [facility] [address] [id number] [place] [address] Nov, [facility] [place] [facility] [address] [id number] [place] [address] 6790 Nov, [facility] [place] [facility] [address] [id number] [place] [address] 0346 Nov, [facility] [place] [facility] [address] [id number] [place] [address] 9158 Nov, [facility] [place] [facility] [address] [id number] [place] [address] 32[address] Oct, [facility] [place] [facility] [address] [id number] [place] [address] 0921 Oct, [facility] [place] [facility] [address] [id number] [place] [address] 9251 Oct, [facility] [place] [facility] [address] [id number] [place] [address] 7340 Oct, [facility] [place] [facility] [address] [id number] [place] [address] 9567 Oct, [facility] [address] [id number] [place] [address] 1586 Oct, [facility] [place] [facility] [address] [id number] [place] [address] 6143 Oct, [facility] [place] [facility] [address] [id number] [place] [address] 8833 Oct, [facility] [place] [facility] [address] [id number] [place] [address] 5298 Oct, [facility] [place] [facility] [address] [id number] [place] [address] 9829 Oct, [facility] [place] [facility] [address] [id number] [place] [address] 9829 Sep, [facility] [place] [facility] [address] [id number] [place] [address] 2256 Sep, [facility] [place] [facility] [address] [id number] [place] [address] 7869 Sep, [facility] [place] [facility] [address] [id number] [place] [address] 0845 Sep, [facility] [place] [facility] [address] [facility] [id number] [place] [address] Sep, [facility] [place] [facility] [address] [id number] [place] [address] 4056 Sep, [facility] [place] [facility] [address] [id number] [place] [address] 2025 Sep, [facility] [place] [facility] [address] [id number] [place] [address] 8112 Sep, [facility] [place] [facility] [address] [id number] [place] [address] 7256 Sep, [facility] [place] [facility] [address] [id number] [place] [address]- 0838 Sep, [facility] [place] [facility] [address] [id number] [place] [address] 9738 Sep, [facility] [place] [facility] [address] [id number] [place] [address]- 6276 Sep, [facility] [place] [facility] [address] [id number] [place] [address]- 9936 Sep, [facility] [place] [facility] [address] [id number] [place] [address] 2276 Aug, [facility] [place] [facility] [address] [id number] [place] [address] 0636 Aug, [facility] [place] [facility] [address] [id number] [place] [address] 3045 Aug, [facility] [place] [facility] [address] [id number] [place] [address] 7002 Aug, [facility] [place] [facility] [address] [id number] [place] [address]- 8683 Aug, [facility] [place] [facility] [address] [id number] [place] [address]- 0784 Aug, [facility] [place] [facility] [address] [id number] [place] [address] 5364 Aug, [facility] [place] [facility] [address] [id number] [place] [address] 6529 Aug, [facility] [place] [facility] [address] [id number] [place] [address] 2889 Aug, [facility] [place] [facility] [address] [id number] [place] [address]- 5854 Aug, [facility] [place] [facility] [address] [id number] [place] [address] 2539 Aug, [facility] [place] [facility] [address] [id number] [place] [address] 8824 Aug, [facility] [place] [facility] [address] [id number] [place] [address] 3272 07 Aug, 2014 [facility] [place] [facility] [address] [id number] [place] [address] 3065 07 Aug, 2014 [facility] [place] [facility] [address] [id number] [place] [address]- 9708 Aug, [facility] [place] [facility] [address] [id number] [place] [address] 4897 Aug, [facility] [place] [facility] [address] [id number] [place] [address]- 7126 Aug, [facility] [place] [facility] [address] [id number] [place] [address]- 9764 Aug, [facility] [place] [facility] [address] [id number] [place] [address]- 7285 30 Jul, 2013 [facility] [place] [facility] [address] [id number] [place] [address]- 8818 30 Jul, 2013 [facility] [place] [facility] [address] [id number] [place] [address]- 3048 24 Jul, 2013 [facility] [place] [facility] [address] [id number] [place] [address]- 9315 24 Jul, 2013 [facility] [place] [facility] [address] [id number] [place] [address]- 2544 23 Sep, 2013 [facility] [place] [facility] [address] [id number] [place] [address] 2547 23 Sep, 2013 [facility] [place] [facility] [address] [id number] [place] [address]- 2546 15 Sep, 2013 [facility] [place] [facility] [address] [id number] [place] [address] 2546 15 Sep, 2013 [facility] [place] [facility] [address] [id number] [place] [address]- 2546 15 Jul, 2013 [facility] [place] [facility] [address] [id number] [place] [address]- 2547 15 Jul, 2013 [facility] [place] [facility] [address] [facility] [id number] [place] [address]- 4085 Jul, [facility] [address] [facility] [id number] [place] [address] Jul, [facility] [address] [facility] [id number] [place] [address]- 9772 Jul, [facility] [address] [facility] [id number] [place] [address]- [address]180 Jul, IMMUNIZATIONS No Known Immunizations SOCIAL HISTORY Never Assessed [place]AS[place] [place] [...] Influenza illness, hyperglycemia 2017 Hospitalization History [facility] [place]- High BS (Pt left AMA) 01/05/2018 Hospitalization History [facility]- DKA and UTI. Discharged 01/14/2018 Hospitalization History ED [place]- Nausea and Vomiting, cannot urinate 01/18/2018 Hospitalization History [facility]-DKA 10/06/48 Hospitalization History hyperglycemia 10/23/19-10/24/19 Hospitalization History ER- Hyperglycemia 12/2018
--- OUTSIDE RECORDS SUMMARY | 2019-03-08 10:55 | XMS REPORT ---
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 Active 866198477 Problem Essential hypertension I10 Active 83229445 Problem Tobacco abuse Z72.0 Active 54175941 Problem CAD (coronary artery disease) I25.10 Active 60587229 Problem Chronic pain syndrome G89.4 Active 098186283 Problem Tobacco abuse counseling Z71.6 Active 618447143 Problem Dental caries K02.9 Active 91271355 Problem DM neuro manif type II E11.49 Active 09826868 Problem Arthritis M19.90 Active 0464398 Problem Other obesity due to excess calories E66.09 Active 210193716 Problem Body mass index (BMI) of 33.0-33.9 in adult Z68.33 Active 575592710 Problem Type 2 diabetes mellitus without complication E11.9 Active 402855049 Problem Fibromyalgia M79.7 Active 61159709 Problem Frequent falls R29.6 Active 777551861 Problem Hyperlipidemia E78.5 Active 11917433 Problem GERD (gastroesophageal reflux disease) K21.9 Active 896074453 Problem Diabetic mononeuropathy associated with type 2 diabetes mellitus E11.41 Active 206947267 Problem Cervicalgia M54.2 Active 81344461 Problem Type 2 diabetes mellitus with hyperglycemia E11.65 Active [id number] Problem Dysphagia, unspecified type R13.10 Active 81828528 ALLERGIES No Information ENCOUNTERS Encounter Location Date Diagnosis [facility] [address] [facility] [id number] [address] Feb, [facility] [id number] [place] [address] 40756- 4949 Jan, [facility] [id number] [place] [address] 27646- 8979 Dec, [facility] [id number] [place] [address] 18078- 8018 Dec, [facility] [address] 23203- 1397 Dec, Dysuria R30.0 [place] [address] 12976- 2001 Dec, [facility] [id number] [place] [address] 58049- 6076 Dec, Hematuria, unspecified type R31.9 ; Frequent falls R29.6 and Type 2 diabetes mellitus with hyperglycemia E11.65 [facility] [id number] [place] [address] 66514- 9089 Dec, [facility] [id number] [place] [address] 15051 -6113 Dec, Syncope and collapse R55 and Seizure R56.9 [place] [id number] [place] [address] 95457- 5893 Dec, [facility] [id number] [place] [address] 72584- 0135 Nov, [facility] [id number] [place] [address] 09025- 5072 Nov, [facility] [id number] [place] [address] 93059- 0043 Nov, Type 2 diabetes mellitus with hyperglycemia E11.65 ; Diarrhea, unspecified R19.7 ; Nausea with vomiting, unspecified R11.2 ; Weakness R53.1 ; Hyperlipidemia E78.5 ; Anemia, unspecified type D64.9 and Peripheral edema R60.9 [place] [id number] [place] [address] 59719- 3144 Nov, [place] [address] 73152- 4831 Oct, DM neuro manif type II E11.49 [place] [address] 20594- 8453 Oct, [place] [address] 49841- 5780 Oct, GERD (gastroesophageal reflux disease) K21.9 [place] [address] 99365- 5445 Sep, [place] [address] 12633- 5513 Sep, Type 2 diabetes mellitus without complication E11.9 ; Peripheral edema R60.9 ; Weakness R53.1 ; Acute pain of right knee M25.561 ; Degenerative disc disease, lumbar M51.36 ; Fibromyalgia M79.7 and Anemia, unspecified type D64.9 [place] [address] 25114- 3571 Sep, [place] [id number] [place] [address] 48438- 8157 Sep, [place] [id number] [place] [address] 39460- 9287 Sep, [place] [address] 77705- 5272 Sep, Type 2 diabetes mellitus with hyperglycemia E11.65 ; Other microscopic hematuria R31.29 ; Nausea and vomiting, intractability of vomiting not specified, unspecified vomiting type R11.2 and Dizziness R42 [place] [id number] [place] [address] 28168- 4482 08 Sep, 2018 [place] [address] 00862- 0833 Sep, [facility] [id number] [place] [address] 42710- 2070 Sep, GERD (gastroesophageal reflux disease) K21.9 [facility] [id number] [place] [address] 34756- 4611 Aug, [facility] [id number] [place] [address] 64413- 3658 Aug, DM neuro manif type II E11.49 [facility] [id number] [place] [address] 85577- 8621 Aug, [facility] [address] 15416- 0569 Jul, [facility] [id number] [place] [address] 06996- 8750 Jul, Elevated serum creatinine R79.89 [place] [address] 12731- 7161 Jul, [facility] [id number] [place] [address] 40087- 2432 Jul, [facility] [id number] [place] [address] 18988- 1976 Jul, [facility] [id number] [place] [address] 41077- 8056 Jun, DM neuro manif type II E11.49 ; Hyperlipidemia E78.5 ; GERD (gastroesophageal reflux disease) K21.9 ; Fibromyalgia M79.7 ; 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 ; Chronic pain syndrome G89.4 ; Primary insomnia F51.01 ; Seasonal allergic rhinitis due to pollen J30.1 ; Elevated serum creatinine R79.89 and Dysphagia, unspecified type R13.10 [facility] [id number] [place] [address] 92902- 0644 Apr, Type 2 diabetes mellitus with hyperglycemia E11.65 [place] [id number] [place] [address] 00903- 1078 Apr, Hyperlipidemia E78.5 ; Chronic pain syndrome G89.4 ; Cervicalgia M54.2 ; DM neuro manif type II E11.49 ; USP current use of insulin Z79.4 ; Nausea alone R11.0 ; Essential hypertension I10 ; GERD ( gastroesophageal reflux disease) K21.9 ; CAD (coronary artery disease) I25.10 and Diabetic mononeuropathy associated with type 2 diabetes mellitus E11.41 [place] [address] 65505- 0483 Apr, [place] [address] 68467- 9668 March, Essential hypertension I10 ; DM neuro manif type II E11.49 and GERD (gastroesophageal reflux disease) K21.9 [place] [address] 43485- 1269 March, DM neuro manif type II E11.49 and GERD (gastroesophageal reflux disease) K21.9 [place] [address] 00226- 9671 March, [place] [address] 06165- 4851 Feb, Tobacco abuse Z72.0 [place] [address] 03767- 0062 Feb, Tobacco abuse Z72.0 [place] [address] 13413- 4218 Feb, Hypokalemia E87.6 [place] [address] 78155- 2984 Feb, Hyperlipidemia E78.5 ; Essential hypertension I10 ; DM neuro manif type II E11.49 ; Fibromyalgia M79.7 ; Acute non-recurrent frontal sinusitis J01.10 ; Other obesity due to excess calories E66.09 and Body mass index (BMI) of 33.0-33.9 in adult Z68.33 [place] [address] 54109- 6913 05 Jan, 2018 Dysuria R30.0 [facility] [address] 70996- 6836 05 Jan, 2018 Dysuria R30.0 [facility] [id number] [place] [address] 53367- 9221 02 Jan, 2018 Acute cystitis with hematuria N30.01 ; DM neuro manif type II E11.49 ; USP current use of insulin Z79.4 ; Essential hypertension I10 and Hospital discharge follow-up Z09 [place] [address] 99903- 6566 27 Dec, 2017 Chest pain, unspecified type R07.9 ; Dehydration E86.0 and Anuria R34 [place] [address] 72775- 1891 Dec, [place] [address] 60441- 3603 22 Dec, 2017 Hyperglycemia R73.9 ; Dehydration E86.0 and Acute cystitis with hematuria N30.01 [facility] [address] 60756 -1111 Dec, [facility] [id number] [place] [address] 08175 -6662 Dec, [facility] [address] 08591 -8343 Dec, [facility] [id number] [place] [address] 81796 -4049 16 Dec, 2017 Dysuria R30.0 ; Acute cystitis with hematuria N30.01 and Weakness R53.1 [facility] [id number] [place] [address] 33536- 2846 09 Dec, 2017 [facility] [address] [address] [id number] [place] [address] 90232- 9704 Nov, [place] [address] [address] [id number] [place] [address] 34619- 3461 Nov, [place] [address] 72264- 9227 Nov, Essential hypertension I10 ; DM neuro [...] Seasonal allergic rhinitis due to pollen J30.1 [place] [address] 18459- 7638 Nov, Alterations of sensations R20.[address] 35537- 5296 Sep, DM neuro manif type II E11.49 ; Hyperlipidemia E78.5 ; Degenerative disc disease, lumbar M51.36 and Chronic pain syndrome G89.4 [place] [id number] [place] [address] 76059- 8135 Sep, Arthritis M19.[address] 25584- 1376 Sep, Type 2 diabetes mellitus without complication E11.9 ; GERD ( gastroesophageal reflux disease) K21.9 ; Arthritis M19.90 and Chronic pain syndrome G89.4 [place] [id number] [place] [address] 94028- 7461 Sep, [place] [address] 11308- 1969 Aug, [place] [address] 74430- 2156 Aug, Type 2 diabetes mellitus without complication E11.9 [place] [address] 19244- 1160 Aug, [facility] [address] [address]- 6826 Aug, [facility] [id number] [place] [address] 91107- 5141 Aug, [facility] [id number] [place] [address] 04565- 8956 Jul, [facility] [id number] [place] [address] 46258 -0067 22 Jul, 2017 Acute non-recurrent frontal sinusitis J01.10 [facility] [id number] [place] [address] 49729- 8828 20 Jul, 2017 CAD (coronary artery disease) I25.10 and GERD ( gastroesophageal reflux disease) K21.9 [place] [address] [address] [id number] [place] [address] 86333- 5133 14 Jul, 2017 Localized swelling, mass and lump, neck R22.1 [place] [address] [address] [id number] [place] [address] 83498- 2615 06 Jul, 2017 [place] [address] [address] [id number] [place] [address] 01559- 0828 Jun, Type 2 diabetes mellitus without complication E11.9 ; Primary insomnia F51.01 ; Alterations of sensations R20.9 ; Hyperlipidemia E78.5 ; GERD (gastroesophageal reflux disease) K21.9 ; Essential hypertension I10 ; 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 ; Tobacco abuse Z72.0 ; Tobacco abuse counseling Z71.6 and CAD (coronary artery disease) I25.10 [facility] [address] [address]- 5866 May, [place] [address] [id number] [place] [address] 04844- 7891 May, Type 2 diabetes mellitus without complication E11.9 [place] [address] [address] [id number] [place] [address] 10442- 6246 May, [place] [id number] [place] [address] 25351- 3226 March, [facility] [id number] [place] [address] 99653- 0133 Feb, [facility] [address] [id number] [place] [address] 11385 -0446 Jan, Acute suppurative otitis media of left ear with spontaneous rupture of tympanic membrane, recurrence not specified H66.012 [facility] [address] [address] [id number] [place] [address] 28438- 7076 17 Dec, 2016 Type 2 diabetes mellitus without complication E11.9 ; Lumbago M54.5 ; Cervicalgia M54.2 ; Hyperlipidemia E78.5 ; GERD ( gastroesophageal reflux disease) K21.9 ; Chronic pain syndrome G89.4 ; Dysuria R30.0 and Essential hypertension I10 [place] [address] 06225- 0217 Oct, [place] [address] [address] [id number] [place] [address] 86503- 0157 30 Sep, 2016 Diabetic mononeuropathy associated with type 2 diabetes mellitus E11.41 and Coughing R05 [place] [address] [id number] [place] [address] 03635- 7917 Sep, Diabetic mononeuropathy associated with type 2 diabetes mellitus E11.41 and Coughing R05 [place] [address] [address] [id number] [place] [address] 54521- 8236 Sep, Onychomycosis B35.1 ; Neuritis M79.2 and Type 2 diabetes mellitus without complication E11.9 [place] [address] [id number] [place] [address] 45219- 5214 Sep, [place] [address] 34815- 1844 Sep, Cough R05 ; Seasonal allergic rhinitis due to pollen J30.1 and Acute upper respiratory infection, unspecified J06.9 [place] [address] [place] [address] 95053- 1439 Sep, [place] [address] 33121- 1178 Aug, [place] [address] [id number] [place] [address] 33173- 7480 Jul, Type 2 diabetes mellitus without complication E11.9 ; Chronic pain G89.29 ; Essential hypertension I10 and Acute non-recurrent maxillary sinusitis J01.00 [place] [address] [id number] [place] [address] 35876- 0143 Jul, Chronic pain syndrome G89.4 ; Lumbago M54.5 and Cervicalgia M54.2 [place] [id number] [place] [address] 21201- 9766 Jul, [address] 11356- 9917 Jul, [place] [address] [address] [id number] [place] [address] 42125- 7898 Jun, Onychomycosis B35.1 ; Onychocryptosis L60.0 and DM neuro manif type II E11.49 [place] [id number] [place] [address] 92136- 9853 Jun, Type 2 diabetes mellitus without complication E11.9 ; Pain in unspecified hip M25.559 ; Other chronic pain G89.29 ; Lumbago M54.5 ; Chronic pain G89.29 ; Insomnia, unspecified G47.00 ; GERD (gastroesophageal reflux disease) K21.9 and Dental caries K02.9 [place] [id number] [place] [address] 48802- 5218 Jun, Type 2 diabetes mellitus without complication E11.9 ; Lumbago M54.5 ; Chronic pain G89.29 ; Insomnia, unspecified G47.00 ; GERD ( gastroesophageal reflux disease) K21.9 ; Dental caries K02.9 ; Pain in unspecified hip M25.559 and Other chronic pain G89.29 [place] [address] [address]- 1239 May, [place] [address] [address] [id number] [place] [address] 16313- 7510 May, Type 2 diabetes mellitus without complication E11.9 ; Essential hypertension I10 ; Chronic pain syndrome G89.4 ; Other seasonal allergic rhinitis J30.2 and Insomnia, unspecified G47.00 [place] [address] [address] [id number] [place] [address] 41348- 3643 Apr, [place] [address] [place] [address] 86159- 5504 Apr, Hypertension I10 and Chronic pain G89.29 [place] [address] [place] [address] 12992- 3791 March, Onychomycosis B35.1 ; Onychocryptosis L60.0 and Type 2 diabetes mellitus without complication E11.9 [place] [address] [place] [address] 05917- 1024 March, Type 2 diabetes mellitus without complication E11.9 ; Essential hypertension I10 ; Alterations of sensations R20.9 ; Chronic pain syndrome G89.4 ; Tobacco abuse Z72.0 and Tobacco abuse counseling Z71.6 [address] [place] [address] 77916- 7056 Feb, Cough R05 ; Type 2 diabetes mellitus without complication E11.9 ; Tobacco abuse counseling Z71.6 and Chronic pain G89.29 [place] [address] [place] [address] 80340- 0444 Feb, [address] [place] [address] 51345- 5656 Feb, Type 2 diabetes mellitus without complication E11.9 ; Lumbago M54.5 ; Cervicalgia M54.2 ; Degenerative disc disease, lumbar M51.36 and Numbness and tingling of both legs 782.0 [facility] [id number] [place] [address] [id number] Jan, Dental caries K02.9 and Encounter for dental examination Z01.20 [place] [address] 06345- 5721 Jan, Type 2 diabetes mellitus without complication E11.9 [place] [address] 68575- 8492 Jan, Type 2 diabetes mellitus without complication E11.9 ; Numbness and tingling of both legs 782.0 ; Fibromyalgia M79.7 ; Hyperlipidemia E78.5 ; Lumbago M54.5 ; Cervicalgia M54.2 ; Hypertension I10 ; CAD (coronary artery disease) I25.10 ; Tobacco abuse Z72.0 ; Tobacco abuse counseling Z71.6 and GERD (gastroesophageal reflux disease) K21.9 [place] [address] [id number] [place] [address] 58451- 0275 Jan, [place] [address] [id number] [place] [address] 00078- 8041 Dec, [facility] [id number] [place] [address] [id number] Dec, Dental examination Z01.20 and Dental caries K02.9 [place] [address] [address] [id number] [place] [address] 73279- 6631 Dec, Edema R60.9 ; Type 2 diabetes mellitus without complication E11.9 ; Hypertension I10 and Mouth pain K13.79 [place] [address] [address] [id number] [place] [address] 74557- 0487 Dec, Degenerative disc disease, lumbar M51.[address] 51060- 5726 Dec, [place] [id number] [place] [address] 51453- 6282 Nov, Insomnia, unspecified G47.00 [place] [address] 60453- 8668 Nov, Type 2 diabetes mellitus without complication E11.9 ; Lumbago M54.5 ; Degenerative disc disease, lumbar M51.36 ; Fibromyalgia M79.7 ; Coronary artery disease I25.10 ; Hyperlipidemia E78.5 ; Controlled substance agreement signed Z79.899 ; Dysuria R30.0 ; Insomnia, unspecified G47.00 ; GERD ( gastroesophageal reflux disease) K21.9 ; Hypertension 401.9 and USP current use of insulin Z79.4 [place] [address] 21196- 9641 Nov, [place] [address] 64978- 8386 Oct, Degenerative disc disease, lumbar M51.36 ; Cervicalgia M54.2 ; Insomnia, unspecified G47.00 ; Decreased GFR R94.4 and GERD ( gastroesophageal reflux disease) K21.9 [place] [address] 31072- 7910 Oct, Lumbago M54.5 [place] [address] 54146- 7260 Oct, Low back pain M54.5 [place] [id number] [place] [address] 60589- 7861 Oct, [place] [id number] [place] [address] 36253- 9458 Oct, Disorientation R41.0 [place] [address] 00014- 7117 Oct, Type 2 diabetes mellitus without complication E11.9 ; Disorientation R41.0 and Chest pain R07.9 [place] [address] 83772- 3491 Oct, [place] [address] 27130- 0318 Sep, Low back pain M54.5 [place] [id number] [place] [address] 56272- 5584 Sep, Insomnia, unspecified G47.00 [facility] [address] 27305- 7964 Aug, Degenerative disc disease, lumbar M51.36 ; Type 2 diabetes mellitus without complication E11.9 and Encounter for immunization Z23 [facility] [address] 10824- 3385 Aug, [facility] [address] 66838- 3342 Aug, [facility] [address] 84053- 7105 Aug, [facility] [address] 87903- 3291 Jul, [facility] [address] 89902- 5071 Jun, [facility] [address] 81475- 9132 Jun, Chest pain 786.50 and Lumbago 724.2 [facility] [id number] [place] [address] 68926- 6371 Jun, [facility] [id number] [place] [address] 31912- 5926 Jun, [facility] [id number] [place] [address] [id number] Jun, Dental examination V72.2 [facility] [address] 63716- 6070 Jun, [facility] [id number] [place] [address] 87347- 8729 May, Left shoulder pain 719.41 and Numbness and tingling of both legs 782.0 [facility] [id number] [place] [address] 06361- 0901 May, Cough 786.2 ; Numbness and tingling of both legs 782.0 and Acute rhinitis 460 [facility] [id number] [address]- 1556 May, [facility] [id number] [place] [address] 21682- 2743 Apr, [facility] [id number] [place] [address] 19211- 4705 Apr, Bilateral lower extremity edema 782.3 ; Lumbago 724.2 and Insomnia 780.52 [facility] [id number] [place] [address] 52797- 4194 Apr, [facility] [id number] [place] [address] 39728- 4691 Apr, [facility] [id number] [place] [address] 36765- 5807 March, Seborrheic keratosis 702.19 and Skin lesion of face 709.9 [facility] [address] [place] [address] 00009- 9191 March, [facility] [id number] [place] [address] 24358- 5083 March, [facility] [address] [address]- 1078 March, [facility] [id number] [place] [address]02- [id number] March, [facility] [id number] [place] [address] 15256- 2773 Feb, [facility] [id number] [place] [address] [id number] Feb, [facility] [id number] [address] Jan, [facility] [address] [id number] [place] [address]71 25 Jan, 2014 [facility] [place] [facility] [address] [id number] [place] [address] 2552 16 Jan, 2014 [facility] [place] [facility] [address] [id number] [place] [address]- [address]104 16 Jan, 2014 [facility] [place] [facility] [address] [id number] [place] [address]- 4096 16 Jan, 2014 [facility] [place] [facility] [address] [id number] [place] [address]- 0041 16 Jan, 2014 [facility] [place] [facility] [address] [id number] [place] [address]- 7932 13 Jan, 2014 [facility] [place] [facility] [address] [id number] [place] [address]- 1323 13 Jan, 2014 [facility] [place] [facility] [address] [id number] [place] [address]- 9498 13 Jan, 2014 [facility] [place] [facility] [address] [id number] [place] [address]- [address] 13 Jan, 2015 [facility] [place] [facility] [address] [id number] [place] [address]- 1792 10 Jan, 2015 [facility] [place] [facility] [address] [id number] [place] [address]- 5702 27 Dec, 2014 [facility] [place] [facility] [address] [id number] [place] [address]- 5757 27 Dec, 2014 [facility] [place] [facility] [address] [id number] [place] [address]- 8559 26 Dec, 2014 [facility] [place] [facility] [address] [id number] [place] [address]- 8953 26 Dec, 2014 [facility] [place] [facility] [address] [id number] [place] [address]- 8850 12 Dec, 2014 [facility] [place] [facility] [address] [id number] [place] [address]- 5479 Dec, [facility] [place] [facility] [address] [id number] [place] [address]- 9765 Nov, [facility] [place] [facility] [address] [id number] [place] [address] Nov, [facility] [place] [facility] [address] [id number] [place] [address] Nov, [facility] [place] [facility] [address] [id number] [place] [address] Nov, [facility] [place] [facility] [address] [id number] [place] [address] Nov, [facility] [place] [facility] [address] [id number] [place] [address] Nov, [facility] [place] [facility] [address] [id number] [place] [address] Nov, [facility] [place] [facility] [address] [id number] [place] [address] Nov, [facility] [place] [facility] [address] [id number] [place] [address] Nov, [facility] [place] [facility] [address] [id number] [place] [address] Nov, [facility] [place] [facility] [address] [id number], [place] [address] Nov, [facility] [place] [facility] [address] [id number], [place] [address] Oct, [facility] [place] [facility] [address] [id number] [place] [address] Oct, [facility] [place] [facility] [address] [id number] [place] [address] Oct, [facility] [place] [facility] [address] [id number] [place] [address] Oct, [facility] [place] [facility] [address] [id number] [place] [address] Oct, [facility] [address] [id number] [place] [address] Oct, [facility] [place] [facility] [address] [id number] [place] [address] Oct, [facility] [place] [facility] [address] [id number] [place] [address] Oct, [facility] [place] [facility] [address] [id number] [place] [address] Oct, [facility] [place] [facility] [address] [id number] [place] [address] Oct, [facility] [place] [facility] [address] [id number] [place] [address] Sep, [facility] [place] [facility] [address] [id number] [place] [address] Sep, [facility] [place] [facility] [address] [id number] [place] [address] Sep, [facility] [place] [facility] [address] [id number] [place] [address] Sep, [facility] [place] [facility] [address] [facility] [id number] [place] [address] Sep, [facility] [place] [facility] [address] [id number] [place] [address] Sep, [facility] [place] [facility] [address] [id number] [place] [address]- [address] Sep, [facility] [place] [facility] [address] [id number] [place] [address] Sep, [facility] [place] [facility] [address] [id number] [place] [address] Sep, [facility] [place] [facility] [address] [id number] [place] [address]70 Sep, [facility] [place] [facility] [address] [id number] [place] [address] Sep, [facility] [place] [facility] [address] [id number] [place] [address]175 Sep, [facility] [place] [facility] [address] [id number] [place] [address]15 Sep, [facility] [place] [facility] [address] [id number] [place] [address] Aug, [facility] [place] [facility] [address] [id number] [place] [address] Aug, [facility] [place] [facility] [address] [id number] [place] [address] Aug, [facility] [place] [facility] [address] [id number] [place] [address]277 Aug, [facility] [place] [facility] [address] [id number] [place] [address] Aug, [facility] [place] [facility] [address] [id number] [place] [address] Aug, [facility] [place] [facility] [address] [id number], [place] [address] Aug, [facility] [place] [facility] [address] [id number], [place] [address] Aug, [facility] [place] [facility] [address] [id number], [place] [address] Aug, [facility] [place] [facility] [address] [id number] [place] [address]34 Aug, [facility] [place] [facility] [address] [id number], [place] [address] Aug, [facility] [place] [facility] [address] [id number], [place] [address] Aug, [facility] [place] [facility] [address] [id number], [place] [address] 07 Aug, 2014 [facility] [place] [facility] [address] [id number] [place] [address]- [address] 07 Aug, 2014 [facility] [place] [facility] [address] [id number] [place] [address]- [address] Aug, [facility] [place] [facility] [address] [id number] [place] [address]- [address]32 Aug, [facility] [place] [facility] [address] [id number] [place] [address]- [address]83 Aug, [facility] [place] [facility] [address] [id number] [place] [address]- 1511 Aug, [facility] [place] [facility] [address] [id number] [place] [address]- [address] 30 Jul, 2013 [facility] [place] [facility] [address] [id number] [place] [address]- [address] 30 Jul, 2013 [facility] [place] [facility] [address] [id number] [place] [address]- [address]35 24 Jul, 2013 [facility] [place] [facility] [address] [id number] [place] [address]- 74[address] 24 Jul, 2013 [facility] [place] [facility] [address] [id number] [place] [address]- [address] 23 Sep, 2013 [facility] [place] [facility] [address] [id number], [place] [address]45 23 Sep, 2013 [facility] [place] [facility] [address] [id number], [place] [address] 15 Sep, 2013 [facility] [place] [facility] [address] [id number] [place] [address]46 15 Sep, 2013 [facility] [place] [facility] [address] [id number] [place] [address]- [address]46 15 Jul, 2013 [facility] [place] [facility] [address] [id number] [place] [address]- [address] 15 Jul, 2013 [facility] [place] [facility] [address] [facility] [id number] [place] [address] Jul, [facility] [address] [facility] [id number], [place] [address] Jul, [facility] [address] [facility] [id number] [place] [address] 133[address] Jul, [facility] [address] [facility] [id number], [place] [address] Jul, IMMUNIZATIONS No Known Immunizations SOCIAL HISTORY Never Assessed REASON FOR VISIT EMR-[facility] PLAN OF CARE VITAL SIGNS MEDICATIONS Unknown [...] Influenza illness, hyperglycemia 2017 Hospitalization History [facility]- High BS (Pt left AMA) 01/05/2018 Hospitalization History [facility]- DKA and UTI. Discharged 01/14/2018 Hospitalization History [facility]- Nausea and Vomiting, cannot urinate 01/18/2018 Hospitalization History [facility] 10/06/48 Hospitalization History hyperglycemia 10/23/19-10/24/19 Hospitalization History [facility]- Hyperglycemia 12/2018
[2019-03-08 10:56] VITALS: BP 100/58
--- OUTSIDE RECORDS SUMMARY | 2019-03-08 10:56 | XMS REPORT ---
Author Author Migration, Doctor Organization [facility] Address Unknown Phone Unavailable Care Team Providers Care Sanitary Chemist Name Role Phone Migration, Doctor Unavailable Unavailable PROBLEMS Type Condition ICD9-CM Code PGU56-HT Code Onset Dates Condition Status SNOMED Code Problem Vitamin D deficiency E55.9 Active 29446014 Problem Degenerative disc disease, lumbar M51.36 Active 46839338 Problem Alterations of sensations R20.9 Active 004400356 Problem Primary insomnia F51.01 Active 8684766 Problem Seasonal allergic rhinitis due to pollen J30.1 Active 24055517 Problem 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 Active 252268429 Problem Essential hypertension I10 Active 82033511 Problem Tobacco abuse Z72.0 Active 61097381 Problem CAD (coronary artery disease) I25.10 Active 57432521 Problem Chronic pain syndrome G89.4 Active 583622551 Problem Tobacco abuse counseling Z71.6 Active 717777074 Problem Dental caries K02.9 Active 39743648 Problem DM neuro manif type II E11.49 Active 87815130 Problem Arthritis M19.90 Active 6608682 Problem Other obesity due to excess calories E66.09 Active 221727177 Problem Body mass index (BMI) of 33.0-33.9 in adult Z68.33 Active 890040976 Problem Type 2 diabetes mellitus without complication E11.9 Active 168044075 Problem Fibromyalgia M79.7 Active 79276647 Problem Frequent falls R29.6 Active 071283497 Problem Hyperlipidemia E78.5 Active 65213879 Problem GERD (gastroesophageal reflux disease) K21.9 Active 866977471 Problem Diabetic mononeuropathy associated with type 2 diabetes mellitus E11.41 Active 659110965 Problem Cervicalgia M54.2 Active 80401845 Problem Type 2 diabetes mellitus with hyperglycemia E11.65 Active [id number] Problem Dysphagia, unspecified type R13.10 Active 94952646 ALLERGIES No Information ENCOUNTERS Encounter Location Date Diagnosis [facility] [address] [facility] [id number] [address] Feb, [facility] [id number] [place] [address] 66924- 2322 Jan, [facility] [id number] [place] [address] 77773- 7166 Dec, [facility] [id number] [place] [address] 50498- 3705 Dec, [facility] [address] 52458- 1087 Dec, Dysuria R30.0 [place] [address] 26773- 2381 Dec, [facility] [id number] [place] [address] 59805- 4063 Dec, Hematuria, unspecified type R31.9 ; Frequent falls R29.6 and Type 2 diabetes mellitus with hyperglycemia E11.65 [facility] [id number] [place] [address] 26196- 6385 Dec, [facility] [id number] [place] [address] 57366 -5173 Dec, Syncope and collapse R55 and Seizure R56.9 [place] [id number] [place] [address] 54338- 3260 Dec, [facility] [id number] [place] [address] 04948- 5507 Nov, [facility] [id number] [place] [address] 52671- 9632 Nov, [facility] [id number] [place] [address] 83791- 5114 Nov, Type 2 diabetes mellitus with hyperglycemia E11.65 ; Diarrhea, unspecified R19.7 ; Nausea with vomiting, unspecified R11.2 ; Weakness R53.1 ; Hyperlipidemia E78.5 ; Anemia, unspecified type D64.9 and Peripheral edema R60.9 [place] [id number] [place] [address] 55985- 2555 Nov, [place] [address] 58518- 4051 Oct, DM neuro manif type II E11.49 [place] [address] 26409- 7008 Oct, [place] [address] 33510- 9688 Oct, GERD (gastroesophageal reflux disease) K21.9 [place] [address] 94743- 6503 Sep, [place] [address] 92061- 8559 Sep, Type 2 diabetes mellitus without complication E11.9 ; Peripheral edema R60.9 ; Weakness R53.1 ; Acute pain of right knee M25.561 ; Degenerative disc disease, lumbar M51.36 ; Fibromyalgia M79.7 and Anemia, unspecified type D64.9 [place] [address] 50197- 8902 Sep, [place] [id number] [place] [address] 33794- 9423 Sep, [place] [id number] [place] [address] 30838- 5530 Sep, [place] [address] 71093- 3891 Sep, Type 2 diabetes mellitus with hyperglycemia E11.65 ; Other microscopic hematuria R31.29 ; Nausea and vomiting, intractability of vomiting not specified, unspecified vomiting type R11.2 and Dizziness R42 [place] [id number] [place] [address] 89979- 7931 08 Sep, 2018 [place] [address] 69921- 7535 Sep, [facility] [id number] [place] [address] 37127- 0362 Sep, GERD (gastroesophageal reflux disease) K21.9 [facility] [id number] [place] [address] 65288- 9369 Aug, [facility] [id number] [place] [address] 59250- 5863 Aug, DM neuro manif type II E11.49 [facility] [id number] [place] [address] 61607- 9567 Aug, [facility] [address] 16060- 7544 Jul, [facility] [id number] [place] [address] 19518- 9632 Jul, Elevated serum creatinine R79.89 [place] [address] 37683- 0629 Jul, [facility] [id number] [place] [address] 36594- 4645 Jul, [facility] [id number] [place] [address] 36350- 6456 Jul, [facility] [id number] [place] [address] 72520- 3721 Jun, DM neuro manif type II E11.49 ; Hyperlipidemia E78.5 ; GERD (gastroesophageal reflux disease) K21.9 ; Fibromyalgia M79.7 ; 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 ; Chronic pain syndrome G89.4 ; Primary insomnia F51.01 ; Seasonal allergic rhinitis due to pollen J30.1 ; Elevated serum creatinine R79.89 and Dysphagia, unspecified type R13.10 [facility] [id number] [place] [address] 80739- 5796 Apr, Type 2 diabetes mellitus with hyperglycemia E11.65 [place] [id number] [place] [address] 40305- 4098 Apr, Hyperlipidemia E78.5 ; Chronic pain syndrome G89.4 ; Cervicalgia M54.2 ; DM neuro manif type II E11.49 ; custodial current use of insulin Z79.4 ; Nausea alone R11.0 ; Essential hypertension I10 ; GERD ( gastroesophageal reflux disease) K21.9 ; CAD (coronary artery disease) I25.10 and Diabetic mononeuropathy associated with type 2 diabetes mellitus E11.41 [place] [address] 10889- 4229 Apr, [place] [address] 94129- 3072 March, Essential hypertension I10 ; DM neuro manif type II E11.49 and GERD (gastroesophageal reflux disease) K21.9 [place] [address] 19919- 7515 March, DM neuro manif type II E11.49 and GERD (gastroesophageal reflux disease) K21.9 [place] [address] 82977- 0339 March, [place] [address] 35744- 6567 Feb, Tobacco abuse Z72.0 [place] [address] 50391- 9161 Feb, Tobacco abuse Z72.0 [place] [address] 64191- 8504 Feb, Hypokalemia E87.6 [place] [address] 34540- 2185 Feb, Hyperlipidemia E78.5 ; Essential hypertension I10 ; DM neuro manif type II E11.49 ; Fibromyalgia M79.7 ; Acute non-recurrent frontal sinusitis J01.10 ; Other obesity due to excess calories E66.09 and Body mass index (BMI) of 33.0-33.9 in adult Z68.33 [place] [address] 30492- 9694 05 Jan, 2018 Dysuria R30.0 [facility] [address] 43573- 8524 05 Jan, 2018 Dysuria R30.0 [facility] [id number] [place] [address] 41375- 8474 02 Jan, 2018 Acute cystitis with hematuria N30.01 ; DM neuro manif type II E11.49 ; custodial current use of insulin Z79.4 ; Essential hypertension I10 and Hospital discharge follow-up Z09 [place] [address] 23782- 9643 27 Dec, 2017 Chest pain, unspecified type R07.9 ; Dehydration E86.0 and Anuria R34 [place] [address] 49427- 7714 Dec, [place] [address] 35699- 7186 22 Dec, 2017 Hyperglycemia R73.9 ; Dehydration E86.0 and Acute cystitis with hematuria N30.01 [facility] [address] 00716 -9247 Dec, [facility] [id number] [place] [address] 53232 -6299 Dec, [facility] [address] 33605 -5717 Dec, [facility] [id number] [place] [address] 70813 -3375 16 Dec, 2017 Dysuria R30.0 ; Acute cystitis with hematuria N30.01 and Weakness R53.1 [facility] [id number] [place] [address] 58109- 0744 09 Dec, 2017 [facility] [id number] [place] [address] 39272- 2394 Nov, [place] [id number] [place] [address] 58051- 3647 Nov, [place] [address] 01906- 8435 Nov, Essential hypertension I10 ; DM neuro manif type II E11.49 ; 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 ; Tobacco abuse Z72.0 ; Hyperlipidemia E78.5 ; Non-adherence to medical treatment Z91.19 ; GERD (gastroesophageal reflux disease) K21.9 ; Degenerative disc disease, lumbar M51.36 ; Fibromyalgia M79.7 ; Chronic pain syndrome G89.4 ; Dental caries K02.9 and Seasonal allergic rhinitis due to pollen J30.1 [place] [address] 23172- 0182 Nov, Alterations of sensations R20.[address] 32154- 2235 Sep, DM neuro manif type II E11.49 ; Hyperlipidemia E78.5 ; Degenerative disc disease, lumbar M51.36 and Chronic pain syndrome G89.4 [place] [id number] [place] [address] 45897- 6707 Sep, Arthritis M19.[address] 79095- 1880 Sep, Type 2 diabetes mellitus without complication E11.9 ; GERD ( gastroesophageal reflux disease) K21.9 ; Arthritis M19.90 and Chronic pain syndrome G89.4 [place] [id number] [place] [address] 51307- 7724 Sep, [place] [address] 34342- 0561 Aug, [place] [address] 01856- 7555 Aug, Type 2 diabetes mellitus without complication E11.9 [place] [address] 75720- 6823 Aug, [facility] [address] [address]- 6878 Aug, [facility] [id number] [place] [address] 34862- 8455 Aug, [facility] [address] [place] [address] 07338- 3852 Jul, [facility] [id number] [place] [address] 15925 -7321 22 Jul, 2017 Acute non-recurrent frontal sinusitis J01.10 [facility] [id number] [place] [address] 17558- 4542 20 Jul, 2017 CAD (coronary artery disease) I25.10 and GERD ( gastroesophageal reflux disease) K21.9 [place] [id number] [place] [address] 89716- 0757 14 Jul, 2017 Localized swelling, mass and lump, neck R22.1 [place] [address] [id number] [place] [address] 48873- 6211 06 Jul, 2017 [place] [id number] [place] [address] 75276- 3756 Jun, Type 2 diabetes mellitus without complication E11.9 ; Primary insomnia F51.01 ; Alterations of sensations R20.9 ; Hyperlipidemia E78.5 ; GERD (gastroesophageal reflux disease) K21.9 ; Essential hypertension I10 ; 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 ; Tobacco abuse Z72.0 ; Tobacco abuse counseling Z71.6 and CAD (coronary artery disease) I25.10 [facility] [address] [address]- 1394 May, [place] [id number] [place] [address] 51368- 9941 May, Type 2 diabetes mellitus without complication E11.9 [place] [id number] [place] [address] 97887- 6534 May, [place] [address] [place] [address] 02684- 4730 March, [facility] [id number] [place] [address] 36533- 7093 Feb, [facility] [id number] [place] [address] 77567 -2122 Jan, Acute suppurative otitis media of left ear with spontaneous rupture of tympanic membrane, recurrence not specified H66.012 [facility] [id number] [place] [address] 24247- 0752 17 Dec, 2016 Type 2 diabetes mellitus without complication E11.9 ; Lumbago M54.5 ; Cervicalgia M54.2 ; Hyperlipidemia E78.5 ; GERD ( gastroesophageal reflux disease) K21.9 ; Chronic pain syndrome G89.4 ; Dysuria R30.0 and Essential hypertension I10 [place] [address] 74516- 1212 Oct, [place] [id number] [place] [address] 75264- 6078 30 Sep, 2016 Diabetic mononeuropathy associated with type 2 diabetes mellitus E11.41 and Coughing R05 [place] [id number] [place] [address] 46199- 8507 Sep, Diabetic mononeuropathy associated with type 2 diabetes mellitus E11.41 and Coughing R05 [place] [address] [id number] [place] [address] 80337- 3483 Sep, Onychomycosis B35.1 ; Neuritis M79.2 and Type 2 diabetes mellitus without complication E11.9 [place] [id number] [place] [address] 86456- 2863 Sep, [place] [address] 41129- 8299 Sep, Cough R05 ; Seasonal allergic rhinitis due to pollen J30.1 and Acute upper respiratory infection, unspecified J06.9 [place] [address] [place] [address] 53877- 3923 Sep, [place] [address] 57383- 3675 Aug, [place] [id number] [place] [address] 09780- 5714 Jul, Type 2 diabetes mellitus without complication E11.9 ; Chronic pain G89.29 ; Essential hypertension I10 and Acute non-recurrent maxillary sinusitis J01.00 [place] [id number] [place] [address] 18875- 7760 Jul, Chronic pain syndrome G89.4 ; Lumbago M54.5 and Cervicalgia M54.2 [place] [id number] [place] [address] 79938- 9191 Jul, [address] 18332- 4375 Jul, [place] [id number] [place] [address] 14887- 1249 Jun, Onychomycosis B35.1 ; Onychocryptosis L60.0 and DM neuro manif type II E11.49 [place] [id number] [place] [address] 89687- 1759 Jun, Type 2 diabetes mellitus without complication E11.9 ; Pain in unspecified hip M25.559 ; Other chronic pain G89.29 ; Lumbago M54.5 ; Chronic pain G89.29 ; Insomnia, unspecified G47.00 ; GERD (gastroesophageal reflux disease) K21.9 and Dental caries K02.9 [place] [id number] [place] [address] 56749- 2820 Jun, Type 2 diabetes mellitus without complication E11.9 ; Lumbago M54.5 ; Chronic pain G89.29 ; Insomnia, unspecified G47.00 ; GERD ( gastroesophageal reflux disease) K21.9 ; Dental caries K02.9 ; Pain in unspecified hip M25.559 and Other chronic pain G89.29 [place] [address] [address]- 5451 May, [place] [id number] [place] [address] 83153- 3718 May, Type 2 diabetes mellitus without complication E11.9 ; Essential hypertension I10 ; Chronic pain syndrome G89.4 ; Other seasonal allergic rhinitis J30.2 and Insomnia, unspecified G47.00 [place] [id number] [place] [address] 78141- 5597 Apr, [place] [address] [place] [address] 97735- 8634 Apr, Hypertension I10 and Chronic pain G89.29 [place] [address] [place] [address] 46154- 3993 March, Onychomycosis B35.1 ; Onychocryptosis L60.0 and Type 2 diabetes mellitus without complication E11.9 [place] [address] [place] [address] 34724- 1153 March, Type 2 diabetes mellitus without complication E11.9 ; Essential hypertension I10 ; Alterations of sensations R20.9 ; Chronic pain syndrome G89.4 ; Tobacco abuse Z72.0 and Tobacco abuse counseling Z71.6 [address] [place] [address] 69615- 6233 Feb, Cough R05 ; Type 2 diabetes mellitus without complication E11.9 ; Tobacco abuse counseling Z71.6 and Chronic pain G89.29 [place] [address] [place] [address] 62225- 9296 Feb, [address] [place] [address] 37764- 2241 Feb, Type 2 diabetes mellitus without complication E11.9 ; Lumbago M54.5 ; Cervicalgia M54.2 ; Degenerative disc disease, lumbar M51.36 and Numbness and tingling of both legs 782.0 [facility] [id number] [place] [address] [id number] Jan, Dental caries K02.9 and Encounter for dental examination Z01.20 [place] [address] 30378- 5929 Jan, Type 2 diabetes mellitus without complication E11.9 [place] [address] 11325- 0323 Jan, Type 2 diabetes mellitus without complication E11.9 ; Numbness and tingling of both legs 782.0 ; Fibromyalgia M79.7 ; Hyperlipidemia E78.5 ; Lumbago M54.5 ; Cervicalgia M54.2 ; Hypertension I10 ; CAD (coronary artery disease) I25.10 ; Tobacco abuse Z72.0 ; Tobacco abuse counseling Z71.6 and GERD (gastroesophageal reflux disease) K21.9 [place] [id number] [place] [address] 51415- 5777 Jan, [place] [id number] [place] [address] 01672- 4860 Dec, [facility] [id number] [place] [address] [id number] Dec, Dental examination Z01.20 and Dental caries K02.9 [place] [id number] [place] [address] 54835- 2599 Dec, Edema R60.9 ; Type 2 diabetes mellitus without complication E11.9 ; Hypertension I10 and Mouth pain K13.79 [place] [id number] [place] [address] 37814- 6836 Dec, Degenerative disc disease, lumbar M51.[address] 69486- 8236 Dec, [place] [id number] [place] [address] 30446- 0266 Nov, Insomnia, unspecified G47.00 [place] [address] 01031- 7392 Nov, Type 2 diabetes mellitus without complication E11.9 ; Lumbago M54.5 ; Degenerative disc disease, lumbar M51.36 ; Fibromyalgia M79.7 ; Coronary artery disease I25.10 ; Hyperlipidemia E78.5 ; Controlled substance agreement signed Z79.899 ; Dysuria R30.0 ; Insomnia, unspecified G47.00 ; GERD ( gastroesophageal reflux disease) K21.9 ; Hypertension 401.9 and custodial current use of insulin Z79.4 [place] [address] 42755- 1879 Nov, [place] [address] 72919- 5630 Oct, Degenerative disc disease, lumbar M51.36 ; Cervicalgia M54.2 ; Insomnia, unspecified G47.00 ; Decreased GFR R94.4 and GERD ( gastroesophageal reflux disease) K21.9 [place] [address] 88844- 8524 Oct, Lumbago M54.5 [place] [address] 58637- 6154 Oct, Low back pain M54.5 [place] [id number] [place] [address] 06174- 1695 Oct, [place] [id number] [place] [address] 78602- 5831 Oct, Disorientation R41.0 [place] [address] 04971- 9087 Oct, Type 2 diabetes mellitus without complication E11.9 ; Disorientation R41.0 and Chest pain R07.9 [place] [address] 32890- 6472 Oct, [place] [address] 05915- 0591 Sep, Low back pain M54.5 [place] [id number] [place] [address] 51169- 3758 Sep, Insomnia, unspecified G47.00 [facility] [address] 42541- 0279 Aug, Degenerative disc disease, lumbar M51.36 ; Type 2 diabetes mellitus without complication E11.9 and Encounter for immunization Z23 [facility] [address] 37971- 6033 Aug, [facility] [address] 79190- 2541 Aug, [facility] [address] 30224- 8098 Aug, [facility] [address] 18277- 9192 Jul, [facility] [address] 17860- 8881 Jun, [facility] [address] 47778- 2125 Jun, Chest pain 786.50 and Lumbago 724.2 [facility] [id number] [place] [address] 22291- 2122 Jun, [facility] [id number] [place] [address] 04855- 7590 Jun, [facility] [id number] [place] [address] [id number] Jun, Dental examination V72.2 [facility] [address] 67553- 8179 Jun, [facility] [id number] [place] [address] 94880- 2554 May, Left shoulder pain 719.41 and Numbness and tingling of both legs 782.0 [facility] [id number] [place] [address] 94965- 1052 May, Cough 786.2 ; Numbness and tingling of both legs 782.0 and Acute rhinitis 460 [facility] [id number] [address]- 2792 May, [facility] [id number] [place] [address] 70748- 3945 Apr, [facility] [id number] [place] [address] 65295- 2337 Apr, Bilateral lower extremity edema 782.3 ; Lumbago 724.2 and Insomnia 780.52 [facility] [id number] [place] [address] 40450- 2252 Apr, [facility] [id number] [place] [address] [id number]- [id number] Apr, [facility] [id number] [place] [address] [id number]- [phone] March, Seborrheic keratosis 702.19 and Skin lesion of face 709.9 [facility] [id number] [place] [address] [id number]- [phone] March, [facility] [id number] [place] [address] [id number]- [id number] March, [facility] [id number] [address] March, [facility] [id number] [place] [address] 39600- 6267 March, [facility] [id number] [place] [address] [id number]- [phone] Feb, [facility] [id number] [place] [address] [id number] Feb, [facility] [id number] [address] Jan, [facility] [id number] [place] [address] 25 Jan, 2014 [facility] [facility] [address] [id number] [place] [address] 16 Jan, 2014 [facility] [place] [facility] [address] [id number] [place] [address] 16 Jan, 2014 [facility] [place] [facility] [address] [id number] [place] [address] 16 Jan, 2014 [facility] [place] [facility] [address] [id number] [place] [address] 16 Jan, 2014 [facility] [place] [facility] [address] [id number] [place] [address] 13 Jan, 2014 [facility] [place] [facility] [address] [id number] [place] [address] 13 Jan, 2014 [facility] [place] [facility] [address] [id number] [place] [address] 1384 13 Jan, 2014 [facility] [place] [facility] [address] [id number] [place] [address] 13 Jan, 2015 [facility] [place] [facility] [address] [id number] [place] [address] 7076 10 Jan, 2015 [facility] [place] [facility] [address] [id number] [place] [address] 99[address] 27 Dec, 2014 [facility] [place] [facility] [address] [id number] [place] [address] 73[address] 27 Dec, 2014 [facility] [place] [facility] [address] [id number] [place] [address] 6768 26 Dec, 2014 [facility] [place] [facility] [address] [id number] [place] [address] 26 Dec, 2014 [facility] [place] [facility] [address] [id number] [place] [address] 1025 12 Dec, 2014 [facility] [place] [facility] [address] [id number] [place] [address] Dec, [facility] [place] [facility] [address] [id number] [place] [address] Nov, [facility] [place] [facility] [address] [id number] [place] [address] Nov, [facility] [place] [facility] [address] [id number] [place] [address] 4360 Nov, [facility] [place] [facility] [address] [id number] [place] [address]261 Nov, [facility] [place] [facility] [address] [id number] [place] [address] 36[address] Nov, [facility] [place] [facility] [address] [id number] [place] [address] 0845 Nov, [facility] [place] [facility] [address] [id number] [place] [address] 96[address] Nov, [facility] [place] [facility] [address] [id number] [place] [address] 1346 Nov, [facility] [place] [facility] [address] [id number] [place] [address] 2759 Nov, [facility] [place] [facility] [address] [id number] [place] [address] 1439 Nov, [facility] [place] [facility] [address] [id number] [place] [address] Nov, [facility] [place] [facility] [address] [id number] [place] [address] Oct, [facility] [place] [facility] [address] [id number] [place] [address] 1543 Oct, [facility] [place] [facility] [address] [id number] [place] [address] 2488 Oct, [facility] [place] [facility] [address] [id number] [place] [address] 6262 Oct, [facility] [place] [facility] [address] [id number] [place] [address] 5346 Oct, [facility] [address] [id number] [place] [address] 9727 Oct, [facility] [place] [facility] [address] [id number] [place] [address] 9572 Oct, [facility] [place] [facility] [address] [id number] [place] [address] 4428 Oct, [facility] [place] [facility] [address] [id number] [place] [address] 2425 Oct, [facility] [place] [facility] [address] [id number] [place] [address] 0821 Oct, [facility] [place] [facility] [address] [id number] [place] [address] 1270 Sep, [facility] [place] [facility] [address] [id number] [place] [address] 3928 Sep, [facility] [place] [facility] [address] [id number] [place] [address] 4480 Sep, [facility] [place] [facility] [address] [id number] [place] [address] 9[address] Sep, [facility] [place] [facility] [address] [facility] [id number] [place] [address] 8295 Sep, [facility] [place] [facility] [address] [id number] [place] [address] 2033 Sep, [facility] [place] [facility] [address] [id number] [place] [address] 2504 Sep, [facility] [place] [facility] [address] [id number] [place] [address] 6[address] Sep, [facility] [place] [facility] [address] [id number] [place] [address] 3022 Sep, [facility] [place] [facility] [address] [id number] [place] [address] 4340 Sep, [facility] [place] [facility] [address] [id number] [place] [address] 7526 Sep, [facility] [place] [facility] [address] [id number] [place] [address] 4786 Sep, [facility] [place] [facility] [address] [id number] [place] [address] 9772 Sep, [facility] [place] [facility] [address] [id number] [place] [address] 0320 Aug, [facility] [place] [facility] [address] [id number] [place] [address] 2992 Aug, [facility] [place] [facility] [address] [id number] [place] [address] 6218 Aug, [facility] [place] [facility] [address] [id number] [place] [address] 4863 Aug, [facility] [place] [facility] [address] [id number] [place] [address] 5224 Aug, [facility] [place] [facility] [address] [id number] [place] [address] 4866 Aug, [facility] [place] [facility] [address] [id number] [place] [address] 39[address] Aug, [facility] [place] [facility] [address] [id number] [place] [address] 4399 Aug, [facility] [place] [facility] [address] [id number] [place] [address]239 Aug, [facility] [place] [facility] [address] [id number] [place] [address] 0444 Aug, [facility] [place] [facility] [address] [id number] [place] [address] 1715 Aug, [facility] [place] [facility] [address] [id number] [place] [address] 5389 Aug, [facility] [place] [facility] [address] [id number] [place] [address] 5581 07 Aug, 2014 [facility] [place] [facility] [address] [id number] [place] [address]- 6125 07 Aug, 2014 [facility] [place] [facility] [address] [id number] [place] [address]- 3956 Aug, [facility] [place] [facility] [address] [id number] [place] [address]- 3056 Aug, [facility] [place] [facility] [address] [id number] [place] [address]- 5853 Aug, [facility] [place] [facility] [address] [id number] [place] [address] 6570 Aug, [facility] [place] [facility] [address] [id number] [place] [address]- 0459 30 Jul, 2013 [facility] [place] [facility] [address] [id number] [place] [address]- 3611 30 Jul, 2013 [facility] [place] [facility] [address] [id number] [place] [address]- 9059 24 Jul, 2013 [facility] [place] [facility] [address] [id number] [place] [address]- 0552 24 Jul, 2013 [facility] [place] [facility] [address] [id number] [place] [address]- 2542 23 Sep, 2013 [facility] [place] [facility] [address] [id number] [place] [address] 2541 23 Sep, 2013 [facility] [place] [facility] [address] [id number] [place] [address]- 2546 15 Sep, 2013 [facility] [place] [facility] [address] [id number] [place] [address] 2546 15 Sep, 2013 [facility] [place] [facility] [address] [id number] [place] [address]- 2546 15 Jul, 2013 [facility] [place] [facility] [address] [id number] [place] [address]- 2548 15 Jul, 2013 [facility] [place] [facility] [address] [facility] [address] [id number] [place] [address]243 Jul, [facility] [address] [facility] [address] [id number] [place] [address] 3295 Jul, [facility] [address] [facility] [address] [id number] [place] [address]- 6556 Jul, [facility] [address] [facility] [address] [id number] [place] [address] Jul, IMMUNIZATIONS No Known Immunizations SOCIAL HISTORY Never Assessed [place]AS[place] FOR [place] [place] VITAL SIGNS MEDICATIONS Unknown [...] Influenza illness, hyperglycemia 2017 Hospitalization History ED [place]- High BS (Pt left AMA) 01/05/2018 Hospitalization History [facility]- DKA and UTI. Discharged 01/14/2018 Hospitalization History ED [place]- Nausea and Vomiting, cannot urinate 01/18/2018 Hospitalization History [facility]-DKA 10/06/48 Hospitalization History hyperglycemia 10/23/19-10/24/19 Hospitalization History ER- Hyperglycemia 12/2018
[2019-03-08] MEDS ORDERED: DEXTROSE 50% 50 ML (IMS) SYR ONE (10:57)
--- NOTE | 2019-03-08 11:04 | NUR ---
PT PRESENTED TO ENDO C/O FEELING WEAK AND THAT HER BS IS DROPPING. BS DONE RESULTED OUT AT 42. PT BECOMING LETHARGIC. PORT ACCESSED AND DEXTROSE 50 1/2 SYRINGE WAS PUSHED BY HEMANT KAUR RN. IMMEDIATELY PT BECAME MORE RESPONSIVE AND "FEELING BETTER"
--- NOTE | 2019-03-08 11:07 | NUR ---
BS REPEATED AND RESULTED OUT AT 112. PATIENT TALKING AND "DOING FINE".
[2019-03-08] MEDS ORDERED: MIDAZOLAM 2 MG/2 ML (VERSED) VIAL ONE ×4 (11:08→11:09)
[2019-03-08] MEDS ORDERED: D5 LR IV SOLUTION 1,000 ML IV STA (11:09)
[2019-03-08] MEDS ORDERED: fentaNYL INJECTION 100 MCG/2 ML AMP ONE ×2 (11:09)
[2019-03-08] MEDS ORDERED: MIDAZOLAM 2 MG/2 ML (VERSED) VIAL IVP ONE (11:15)
[2019-03-08] MEDS ORDERED: LIDOCAINE JELLY 2% 6 ML SYRINGE MM PRN (11:15)
[2019-03-08] MEDS ORDERED: HURRICAINE EXT TUBE (BENZOCAINE) XX PRN (11:15)
[2019-03-08] MEDS ORDERED: fentaNYL INJECTION 100 MCG/2 ML AMP IVP ONE (11:15)
--- NOTE | 2019-03-08 11:23 | Conscious Sedation/ASA ---
Conscious Sedation Pre-Proced Time 11:00 ASA Score 2 For ASA 3 and 4: Consider anesthesia and medical clearance. Also, for patients with a history of failed moderate sedation consider anesthesia. Airway Lungs Heart ASA score ASA 1: a normal healthy patient ASA 2: a patient with a mild systemic disease (mid diabetes, controlled hypertension, obesity ASA 3: a patient with a severe systemic disease that limits activity (angina , COPD, prior Myocardial infarction) ASA 4: a patient with an incapacitating disease that is a constant threat to life (CHF, renal failure) ASA 5: a moribund patient not expected to survive 24 hrs. (ruptured aneurysm) ASA 6: a declared brain- patient whose organs are being harvested. For emergent operations, add the letter E after the classification Mallampati Classification Grade 2 Sedation Plan Analgesia, Amnesia, Plan communicated to team members, Discussed options with patient/fam, Discussed risks with patient/fam The patient is an appropriate candidate to undergo the planned procedure, sedation, and anesthesia. The patient immediately re-assessed prior to indication. MCKENZIE CHAVEZ MD Mar 08, 2019 11:23
--- NOTE | 2019-03-08 11:24 | Progress Note-Pre Operative ---
Pre-Operative Progress Note H&P Reviewed The H&P was reviewed, patient examined and no changes noted. Date Seen by Provider: Mar 08, 2019 Time Seen by Provider: 11:00 Date H&P Reviewed: Mar 08, 2019 Time H&P Reviewed: 11:00 Pre-Operative Diagnosis: dysphagia MCKENZIE CHAVEZ MD Mar 08, 2019 11:23
--- NOTE | 2019-03-08 11:26 | Discharge Inst-Surgical ---
D/C Lap Instructions-SCOTT Follow Up 6 weeks Activity as tolerated High Fiber Diet 25g or more per day Avoid Alcohol, Caffeine, Spicy [place] and Acid foods. Drink 64 fluid oz or more of fluids per day. Symptoms to Report: Fever over 101 degree F, Nausea/Vomiting If any problems/questions: Contact your physician or go to Emergency Room MCKENZIE CHAVEZ MD Mar 08, 2019 11:26
[2019-03-08] MEDS ORDERED: ACETAMINOPHEN 325 MG TABLET PO PRN (11:30)
[2019-03-08] MEDS ORDERED: DEXTROSE 50% 50 ML (IMS) SYR IV ONE (11:30)
[2019-03-08] MEDS ORDERED: morphine INJ 10 MG/ML 1ML (SYR OR VIAL) IV PRN (11:30)
[2019-03-08] MEDS ORDERED: HYDROcodone/APAP 5 MG/325 MG (LORTAB) TAB PO PRN (11:30)
[2019-03-08] MEDS ORDERED: PROMETHAZINE INJ 25 MG/ML (PHENERGAN) AMP IVP PRN (11:30)
--- NOTE | 2019-03-08 12:12 | Progress Note-Post Operative ---
Post-Operative Progess Note Surgeon (s)/Director Of Vendor Management (s) Surgeon MCKENZIE CHAVEZ MD Director Of Vendor Management: none Pre-Operative Diagnosis dysphagia Post-Operative Diagnosis reflux esophagitis(stage2),mild distal esophageal, no HH, retained food substance stomach(gastroparesis). Procedure & Operative Findings Date of Procedure 03/08/19 Procedure Performed/Findings EGD with bx and balloon dilatation. Anesthesia Type CS Estimated Blood Loss Estimated blood loss (mL): minimal Specimens/Packing Specimens Removed ge jxn, antrum MCKENZIE CHAVEZ MD Mar 08, 2019 12:12
[2019-03-08] MEDS ORDERED: ERYT-96 PO (12:13)
[2019-03-08 12:40] VITALS: BP 102/59
[2019-03-08 13:10] VITALS: BP 146/75
[2019-03-08 13:48] VITALS: BP 100/58
[2019-03-08 13:54] VITALS: BP 146/75
--- NOTE | 2019-03-08 17:10 | OPERATIVE REPORT ---
DATE OF SERVICE: 03/08/2019 ATTENDING PRIMARY BUSINESS ANALYSIS PROFESSIONAL: Chacorta Landry APRN PREOPERATIVE DIAGNOSIS: Dysphagia. POSTOPERATIVE DIAGNOSES: Reflux esophagitis stage II, no significant hiatal hernia, mild distal esophageal stricture, retained food substance within the stomach, most likely indicating gastroparesis. Mild gastritis. No distal obstructions. PROCEDURE: EGD with biopsy and balloon dilatation. SURGEON: Mckenzie Chavez MD ANESTHESIA: Conscious sedation. ESTIMATED BLOOD LOSS: Minimal. FINDINGS: Reflux esophagitis stage II, no significant hiatal hernia, mild distal esophageal stricture, retained food substance within the stomach, most likely indicating some level of gastroparesis, mild gastritis. Pylorus and duodenum appeared normal and no distal obstructions. DISPOSITION: The patient tolerated the procedure well. INDICATIONS: The patient is a 58-year-old female known to us. We had seen her for screening colonoscopy more recently in April 2018. We had also seen her for dysphagia as well as gastroesophageal reflux disease and was also stated that she had a symptomatic lesion that developed the right lateral neck; however, this was biopsied and found to be consistent with scar tissue from previous implantable catheter placement. She states in the past few weeks, she has had dysphagia with difficulty swallowing and also does have intermittent episodes of nausea; however, the past nine months, she states that she has lost approximately 50 pounds. DESCRIPTION OF PROCEDURE: The patient was brought to the endoscopy suite, laid in the left lateral decubitus position with head slightly elevated. After adequate IV pain and sedating medications and conscious sedation anesthesia, the mouthpiece was applied. The endoscope was then placed in the mouth visualizing the pharynx and hypopharyngeal region. Vocal cords, epiglottis and vallecula identified and appeared to be normal. The endoscope was gently intubated at the esophageal opening and the esophagus insufflated. The endoscope was then advanced to the first, second and third portion of esophagus to the level of the GE junction. A reflux esophagitis stage II identified. There is also a mild distal esophageal stricture versus hypertonic lower esophageal sphincter. A biopsy was taken of the GE junction using forceps with visualization of good hemostasis. The endoscope was then easily advanced into the stomach and endoscope retroflexed visualizing no significant hiatal hernia. There was a mild gastritis; however, there was a significant retained food substance within the stomach even being n.p.o. for 18 hours and most likely indicating some level of gastroparesis. A biopsy was taken of the stomach antrum to rule out H. pylori with forceps with visualization of good hemostasis. The endoscope was then advanced to the pylorus and the first and second portion of the duodenum, which appeared normal with no distal obstructions. We then proceeded with a dilatation of esophageal stricture versus hypertonic lower esophageal sphincter tone. The balloon was placed in the stomach and pulled back to the area of the lower esophageal sphincter. Then, the balloon was then dilated to 2 atmospheres of pressure with no resistance. We then proceeded to 4 atmospheres of pressure with mild to moderate resistance. We then proceeded to 5 atmospheres of pressure There was a moderate resistance and left this in place for approximately 60 seconds. The luminal diameter was approximately 19.5 cm. The balloon was then desufflated and removed. Good hemostasis was observed as well as no mucosal tears. The endoscope was then slowly withdrawn while taking a second look and suctioning residual air with no additional findings. The patient tolerated the procedure well. We will have her continue with medical management with the necessary lifestyle and diet accommodations for reflux as well as a distal esophageal stricture and most likely a gastroparesis. This would be small and more frequent meals, avoidance of eating at night as well as head elevation. She also needs to take in small and eat more easily digestible foods as well as a liquid nutritional supplementation. We will also proceed with a trial of erythromycin 500 mg q.8 hours to increase motile production and increased motility. Job ID: [id number] DocumentID: [id number] Dictated Date: 03/08/2019 12:11:33 [place] Date: 03/08/2019 17:10:28 Dictated By: MCKENZIE CHAVEZ MD
== END 2019-03-08 13:15 | disposition home or self-care (01) ==
LOC: ENDO 10:48
PROVIDERS: ATTEND Surgery
DX: K21.0 Gastro-esophageal reflux disease with esophagitis (principal); K22.2 Esophageal obstruction; K29.70 Gastritis, unspecified, without bleeding; I10 Essential (primary) hypertension; E11.40 Type 2 diabetes mellitus with diabetic neuropathy, unspecified; E78.00 Pure hypercholesterolemia, unspecified; M79.7 Fibromyalgia; F17.210 Nicotine dependence, cigarettes, uncomplicated; Z98.1 Arthrodesis status; Z95.5 Presence of coronary angioplasty implant and graft; Z79.899 Other long term (current) drug therapy; Z79.84 Long term (current) use of oral hypoglycemic drugs; Z79.82 Long term (current) use of aspirin; Z80.1 Family history of malignant neoplasm of trachea, bronchus and lung
CPT/HCPCS: 82962

== ENCOUNTER 2019-03-20 19:43 | Emergency (ER) | payer MEDICARE ==
[~2019-03-20] VITALS: Ht 160 cm; Wt 61.2 kg
[~2019-03-20 19:43] MED LIST changes: +ERYT-96 PO
[2019-03-20] MEDS ORDERED: NS IV 1000 ML 1,000 ML IV SCH (20:00)
[2019-03-20] MEDS ORDERED: PROMETHAZINE INJ 25 MG/ML (PHENERGAN) AMP IVP ONE (20:00)
[2019-03-20] MEDS ORDERED: diphenhydrAMINE 50 MG/ML INJ (BENADRYL) IVP ONE (20:00)
[2019-03-20] MEDS ORDERED: ASPIRIN 81 MG CHEW (CHILDREN'S ASA) PO ONE (20:00)
[2019-03-20] MEDS ORDERED: RT-ALBUTEROL/IPRATROPIUM 3 ML (DUONEB) VIAL ONE (20:02)
[2019-03-20] MEDS ORDERED: RT-ALBUTEROL SULF 2.5 MG/3 ML PRE-MIX VIAL ONE (20:02)
[2019-03-20 20:21] LABS: BASOPHILS # (AUTO) 0.1 10^3/uL (0.0-0.1); BASOPHILS % (AUTO) 1 % (0-10); EOSINOPHILS # (AUTO) 0.3 10^3/uL (0.0-0.3); EOSINOPHILS % (AUTO) 2 % (0-10); HEMATOCRIT 37 % (35-52); HEMOGLOBIN 12.4 G/DL (11.5-16.0); LYMPHOCYTES % (AUTO) 40 % (12-44); MEAN CORPUSCULAR HEMOGLOBIN 29 PG (25-34); MEAN CORPUSCULAR HGB CONC 33 G/DL (32-36); MEAN CORPUSCULAR VOLUME 88 FL (80-99); MEAN PLATELET VOLUME 9.4 FL (7.4-10.4); MONOCYTES # (AUTO) 0.7 X 10^3 (0.0-1.0); MONOCYTES % (AUTO) 5 % (0-12); NEUTROPHILS # (AUTO) 6.4 X 10^3 (1.8-7.8); NEUTROPHILS % (AUTO) 51 % (42-75); PLATELET COUNT 484 10^3/uL (130-400); RED CELL DISTRIBUTION WIDTH 14.3 % (10.0-14.5); WHITE BLOOD COUNT 12.5 10^3/uL (4.3-11.0)
--- NOTE | 2019-03-20 20:29 | Diagnostic Imaging Report ---
Indication: Chest pain. Time of exam: 8:02 PM Correlation is made with prior study from 01/18/2019. Right-sided chest wall port has tip at the SVC right atrial junction. Lungs appear to be clear. No infiltrate, effusion or pneumothorax is seen. Postop changes in the lower cervical spine. Impression: No acute cardiopulmonary process is detected. Dictated by: Dictated on workstation # [id number]
[2019-03-20 20:48] LABS: INR 0.9 (0.8-1.4); PROTHROMBIN TIME PATIENT 12.7 SEC (12.2-14.7)
[2019-03-20 20:50] LABS: ALANINE AMINOTRANSFERASE 9 U/L (0-55); ALBUMIN 3.8 GM/DL (3.2-4.5); ALKALINE PHOSPHATASE 81 U/L (40-136); AMYLASE 46 U/L (25-125); BILIRUBIN,TOTAL 0.4 MG/DL (0.1-1.0); BUN/CREATININE RATIO 13; CALCIUM 9.9 MG/DL (8.5-10.1); CARBON DIOXIDE 21 MMOL/L (21-32); CHLORIDE 104 MMOL/L (98-107); GFR ESTIMATED > 60; GLUCOSE 96 MG/DL (70-105); LIPASE 15 U/L (8-78); MAGNESIUM 1.8 MG/DL (1.8-2.4); POTASSIUM 3.2 MMOL/L (3.6-5.0); SODIUM 137 MMOL/L (135-145); TOTAL PROTEIN 7.2 GM/DL (6.4-8.2)
[2019-03-20] MEDS ORDERED: fentaNYL INJECTION 100 MCG/2 ML AMP IVP ONE (21:30)
--- NOTE | 2019-03-20 21:50 | NUR ---
LAB DRAWN FOR REPEAT TROPONIN BY GONZALO.
--- NOTE | 2019-03-20 22:26 | ED Chest Pain ---
General Chief Complaint: Chest Pain Stated Complaint: CP Nursing Triage Note: THE PT IS ASSISTED TO THE ROOM BY WHEELCHAIR. NO DISTRESS IS SEEN ON ARRIVAL. LOC IS NORMAL FOR THE PT. Nursing Sepsis Screen: No Definite Risk Source: patient Exam Limitations: no limitations History of Present Illness Date Seen by Provider: Mar 20, 2019 Time Seen by Provider: 19:47 Initial Comments 58-year-old female who presents to the emergency room with complaints of chest pain, nausea and vomiting, chronic abdominal pain that started today around 1500. She denies shortness of breath, lightheadedness, dizziness. She reports that she's had a recent diagnosis of gastroparesis. Allergies and Home Medications Allergies Coded Allergies: ketorolac (Verified Allergy, Severe, ANAPHYLAXIS, PT TAKES ASA AT HOME, ) ondansetron (Verified Allergy, Intermediate, RASH, 03/06/19) RASH/ HIVES exenatide (Verified Allergy, Unknown, NAUSEA, 03/06/19) NON STOP VOMITING latex (Verified Allergy, Unknown, RASH, 03/06/19) metoclopramide (Verified Allergy, Unknown, RESTLESS LEGS, 03/06/19) Home Medications Aspirin 81 Mg Tablet.dr, 81 MG PO DAILY, (Reported) Atorvastatin Calcium 40 Mg Tablet, 40 MG PO HS, (Reported) LAST FILLED #30 18 Erythromycin Base 500 Mg Tablet, 500 MG PO Q8H Prescribed by: MCKENZIE CHAVEZ on 03/08/19 1213 Gabapentin 800 Mg Tablet, 1,600 MG PO HS, (Reported) TAKES 2 (800MG) TABLETS Gabapentin 800 Mg Tablet, 800 MG PO DAILY PRN for NERVE PAIN, (Reported) Insulin Detemir 100 Unit/1 Ml Insuln.pen, 30 UNIT SQ DAILY, (Reported) LAST FILLED AUGUST 2018 Insulin Lispro 100 Unit/1 Ml Insuln.pen, SQ TIDAC, (Reported) LAST FILLED MARCH 2018 Linagliptin 5 Mg Tablet, 5 MG PO DAILY, (Reported) Melatonin 5 Mg Capsule, 5 MG PO HS PRN for SLEEP, (Reported) Metoprolol Succinate 50 Mg Tab.er.24h, 50 MG PO DAILY Prescribed by: SHIRA BOOTHE on 01/20/19 1315 Mirtazapine 15 Mg Tablet, 15 MG PO HS, (Reported) Omeprazole 20 Mg Capsule.dr, 20 MG PO DAILY, (Reported) Oxycodone HCl 10 Mg Tablet, 10 MG PO DAILY, (Reported) Oxycodone HCl/Acetaminophen 1 Each Tablet, 1 TAB PO Q4H PRN for PAIN-MODERATE, ( Reported) Past Nndhynm-Jtdjve-Hyofsm Hx Patient Social History Alcohol Beverage of Choice: Wine Type Used: Cigars Former Smoker, Quit: Nov 10, 2017 2nd Hand Smoke Exposure: No Recent Foreign Travel: No Contact w/Someone Who Travel: No Recent Infectious Disease Expo: No Recent Hopitalizations: No Physical Abuse: No Sexual Abuse: No Mistreated: No Fear: No Immunizations Up To Date Tetanus Booster (TDap): Unknown PED Vaccines UTD: No Date of Pneumonia Vaccine: Dec 12, 2013 Date of Influenza Vaccine: Sep 22, 2018 Seasonal Allergies Seasonal Allergies: Yes Past Medical History Surgeries: Yes (LITHOTRIPSY, FUSION/LAMINECTOMY X4, BMT) Cardiac, Coronary Stent, Gallbladder, Orthopedic Respiratory: Yes Chronic Bronchitis, Sleep Apnea Currently Using CPAP: Yes (ISN'T USING RIGHT NOW-ALLERGIES TOO BAD) Currently Using BIPAP: No Cardiac: Yes (CARDIAC STENT (AORTA) X 1; DVT'S IN ARMS) Chronic Edema/Swelling, Coronary Artery Disease, Deep Vein Thrombosis, High Cholesterol, Hypertension Neurological: Yes (NEUROPATHY IN HANDS AND FEET) Headaches /Migraines, Neuropathy 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 Disorders: No 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 Disorders: Denies 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 History: Menopausal Sexually Transmitted Disease: No HIV/AIDS: No Genitourinary: Yes Bladder Infection, Kidney Stones, Renal Failure Gastrointestinal: Yes Gastroesophageal Reflux, Diverticulosis, Esophagitis, Irritable Bowel Musculoskeletal: Yes Degenerate Disk Disease, Fibromyalgia, Chronic Back Pain Endocrine: Yes Diabetes, Insulin dep HEENT: Yes (GLASSES) Chronic Ear Infection Loss of Vision: Bilateral Hearing Impairment: Hard of Hearing Cancer: No Psychosocial: Yes Anxiety Integumentary: Yes Psoriasis Blood Disorders: No Adverse Reaction/Blood Tranf: No (HAS HAD BLOOD WITH NO REACTION) Family Medical History Cancer of mouth 19 FATHER ( of esophogeal cancer.) Cardiovascular disease 19 MOTHER G8 BROTHER Completed stroke 19 FATHER G8 BROTHER Diabetes mellitus G8 BROTHER FH: lung cancer 19 MOTHER Hypertension 19 FATHER Kidney disease 19 FATHER Myocardial infarction 19 MOTHER G8 BROTHER Respiratory disorder No Family History of: AIDS CAD Over 55 Years Old, CVA, Diabetes, GI Disease, Renal Disease Physical Exam Vital Signs Vital Signs - First Documented 03/20/19 20:30 Temp 98.4 Pulse 100 Resp 18 B/P (MAP) 135/89 (104) Capillary Refill : Less Than 3 Seconds Height, Weight, BMI Height: 5'3.00" Weight: 135lbs. 6.0oz. 61.134401ux; 24.5 BMI Method:Estimated Progress/Results/Core Measures Results/Orders Lab Results Laboratory Tests Test 03/20/19 20:15 03/20/19 20:20 03/20/19 21:49 Range/Units White Blood Count 12.5 H 4.3-11.0 10^3/uL Red Blood Count 4.25 L 4.35-5.85 10^6/uL Hemoglobin 12.4 11.5-16.0 G/DL Hematocrit 37 35-52 % Mean Corpuscular Volume 88 80-99 FL Mean Corpuscular Hemoglobin 29 25-34 PG Mean Corpuscular Hemoglobin Concent 33 32-36 G/DL Red Cell Distribution Width 14.3 10.0-14.5 % Platelet Count 484 H 130-400 10^3/uL Mean Platelet Volume 9.4 7.4-10.4 FL Neutrophils (%) (Auto) 51 42-75 % Lymphocytes (%) (Auto) 40 12-44 % Monocytes (%) (Auto) 5 0-12 % Eosinophils (%) (Auto) 2 0-10 % Basophils (%) (Auto) 1 0-10 % Neutrophils # (Auto) 6.4 1.8-7.8 X 10^3 Lymphocytes # (Auto) 5.0 H 1.0-4.0 X 10^3 Monocytes # (Auto) 0.7 0.0-1.0 X 10^3 Eosinophils # (Auto) 0.3 0.0-0.3 10^3/uL Basophils # (Auto) 0.1 0.0-0.1 10^3/uL Sodium Level 137 135-145 MMOL/L Potassium Level 3.2 L 3.6-5.0 MMOL/L Chloride Level 104 98-107 MMOL/L Carbon Dioxide Level 21 21-32 MMOL/L Anion Gap 12 5-14 MMOL/L Blood Urea Nitrogen 10 7-18 MG/DL Creatinine 0.80 0.60-1.30 MG/DL Estimat Glomerular Filtration Rate > 60 BUN/Creatinine Ratio 13 Glucose Level 96 70-105 MG/DL Calcium Level 9.9 8.5-10.1 MG/DL Corrected Calcium 10.1 8.5-10.1 MG/DL Magnesium Level 1.8 1.8-2.4 MG/DL Total Bilirubin 0.4 0.1-1.0 MG/DL Aspartate Amino Transf (AST/SGOT) 8 5-34 U/L Alanine Aminotransferase (ALT/SGPT) 9 0-55 U/L Alkaline Phosphatase 81 40-136 U/L Myoglobin 25.9 10.0-92.0 NG/ML Troponin I < 0.028 < 0.028 <0.028 NG/ML Total Protein 7.2 6.4-8.2 GM/DL Albumin 3.8 3.2-4.5 GM/DL Amylase Level 46 25-125 U/L Lipase 15 8-78 U/L Prothrombin Time 12.7 12.2-14.7 SEC INR Comment 0.9 0.8-1.4 Activated Partial Thromboplast Time 20 L 24-35 SEC My Orders Orders - ZELALEM EVANS Cbc With Automated Diff (03/20/19 19:47) Magnesium (03/20/19 19:47) Chest 1 View, Ap/Pa Only (03/20/19 19:47) Ekg Tracing (03/20/19 19:47) Cardiac Profile 1 (03/20/19 19:47) Comprehensive Metabolic Panel (03/20/19 19:47) Myoglobin Serum (03/20/19 19:47) Protime With Inr (03/20/19:47) Partial Thromboplastin Time (03/20/19 19:47) O2 (03/20/19 19:47) Monitor-Rhythm Ecg Trace Only (03/20/19 19:47) Lipid Panel (03/21/19 06:00) Ed Iv/Invasive Line Start (03/20/19 19:47) Lipase (03/20/19 19:47) Amylase (03/20/19 19:47) Aspirin Chewable Tablet (Baby Aspirin Ch (03/20/19 20:00) Ns Iv 1000 Ml (Sodium Chloride 0.9%) (03/20/19 20:00) Promethazine Injection (Phenergan Injec (03/20/19 20:00) Diphenhydramine Injection (Benadryl Inje (03/20/19 20:00) Albuterol Pre-Mix Nebs (Rt) (Proventil (03/20/19 20:02) Albuterol/Ipra Inhalation Soln (Duoneb I (03/20/19 20:02) Fentanyl Injection (Sublimaze Injection (03/20/19 21:30) Troponin I (03/20/19 21:39) Medications Given in ED Current Medications Medications Dose Ordered Sig/Jackie Route Start Time Stop Time Status Last Admin Dose Admin Aspirin 324 mg ONCE ONCE PO 03/20/19 20:00 03/20/19 20:01 DC 03/20/19 19:58 324 MG Diphenhydramine HCl 25 mg ONCE ONCE IVP 03/20/19 20:00 03/20/19 20:01 DC 03/20/19 20:19 25 MG Fentanyl Citrate 50 mcg ONCE ONCE IVP 03/20/19 21:30 03/20/19 21:31 DC 03/20/19 21:33 50 MCG Promethazine HCl 25 mg ONCE ONCE IVP 03/20/19 20:00 03/20/19 20:01 DC 03/20/19 20:25 25 MG Vital Signs/I&O 03/20/19 20:30 Temp 98.4 Pulse 100 Resp 18 B/P (MAP) 135/89 (104) Blood Pressure Mean: 104 Departure Impression Primary Impression: Chest pain Additional Impressions: Nausea and vomiting Gastroparesis Disposition: HOME, SELF-CARE Condition: Stable/Unchanged Departure-Patient Inst. Decision time for Depature: 22:25 Referrals: [facility] (PCP/Family) Primary Care Physician Patient Instructions: Chest Pain (DC), Gastroparesis (Delayed Gastric Emptying ) (DC), Nausea and Vomiting, Adult Add. Discharge Instructions: Follow-up with your primary care provider within 1 week for recheck. Return back to the emergency room for worsening symptoms or concerns as needed. All discharge instructions reviewed with patient and/or family. Voiced understanding. ZELALEM EVANS Mar 20, 2019 22:25
[2019-03-20 22:40] VITALS: BP 135/89
== END 2019-03-20 22:42 | disposition home or self-care (01) ==
LOC: EDUNIT# 19:43 → ER 19:44
DX: R07.9 Chest pain, unspecified (principal); R11.2 Nausea with vomiting, unspecified; E11.43 Type 2 diabetes mellitus with diabetic autonomic (poly)neuropathy; K31.84 Gastroparesis; G47.30 Sleep apnea, unspecified; I25.10 Atherosclerotic heart disease of native coronary artery without angina pectoris; E78.00 Pure hypercholesterolemia, unspecified; I10 Essential (primary) hypertension; G43.909 Migraine, unspecified, not intractable, without status migrainosus; E11.40 Type 2 diabetes mellitus with diabetic neuropathy, unspecified; F41.9 Anxiety disorder, unspecified; K58.9 Irritable bowel syndrome, unspecified; K21.0 Gastro-esophageal reflux disease with esophagitis; Z80.0 Family history of malignant neoplasm of digestive organs; Z80.1 Family history of malignant neoplasm of trachea, bronchus and lung; Z82.49 Family history of ischemic heart disease and other diseases of the circulatory system; Z87.442 Personal history of urinary calculi; Z87.448 Personal history of other diseases of urinary system; Z86.718 Personal history of other venous thrombosis and embolism; Z87.09 Personal history of other diseases of the respiratory system; Z88.4 Allergy status to anesthetic agent; Z88.8 Allergy status to other drugs, medicaments and biological substances; Z91.040 Latex allergy status; Z79.82 Long term (current) use of aspirin; Z79.4 Long term (current) use of insulin; Z87.891 Personal history of nicotine dependence; Z98.890 Other specified postprocedural states; Z95.5 Presence of coronary angioplasty implant and graft; Z98.1 Arthrodesis status
CPT/HCPCS: 36415; 71045; 80053; 82150; 83690; 83735; 83874; 84484; 85025; 85610; 85730; 93005; 93041

== ENCOUNTER 2019-03-21 18:38 | Emergency (ER) | payer MEDICARE ==
[~2019-03-21] VITALS: Ht 152.4 cm; Wt 59.0 kg
[2019-03-21] MEDS ORDERED: LACTATED RINGERS 1,000 ML IV ONE (18:50)
[2019-03-21 18:57] LABS: BASOPHILS # (AUTO) 0.1 10^3/uL (0.0-0.1); BASOPHILS % (AUTO) 1 % (0-10); EOSINOPHILS # (AUTO) 0.2 10^3/uL (0.0-0.3); EOSINOPHILS % (AUTO) 2 % (0-10); HEMATOCRIT 36 % (35-52); HEMOGLOBIN 12.1 G/DL (11.5-16.0); LYMPHOCYTES # (AUTO) 3.7 X 10^3 (1.0-4.0); LYMPHOCYTES % (AUTO) 34 % (12-44); MEAN CORPUSCULAR HEMOGLOBIN 30 PG (25-34); MEAN CORPUSCULAR HGB CONC 34 G/DL (32-36); MEAN CORPUSCULAR VOLUME 89 FL (80-99); MEAN PLATELET VOLUME 9.6 FL (7.4-10.4); MONOCYTES # (AUTO) 0.5 X 10^3 (0.0-1.0); MONOCYTES % (AUTO) 4 % (0-12); NEUTROPHILS # (AUTO) 6.4 X 10^3 (1.8-7.8); NEUTROPHILS % (AUTO) 59 % (42-75); PLATELET COUNT 391 10^3/uL (130-400); RED CELL DISTRIBUTION WIDTH 14.2 % (10.0-14.5); WHITE BLOOD COUNT 10.8 10^3/uL (4.3-11.0)
[2019-03-21] MEDS ORDERED: PANTOPRAZOLE 40 MG (PROTONIX) VIAL IV ONE (19:00)
[2019-03-21] MEDS ORDERED: PROMETHAZINE INJ 25 MG/ML (PHENERGAN) AMP IVP ONE (19:00)
[2019-03-21] MEDS ORDERED: FAMOTIDINE 20MG/2ML IV (PEPCID) IVP ONE (19:00)
[2019-03-21] MEDS ORDERED: fentaNYL INJECTION 100 MCG/2 ML AMP IVP ONE ×2 (19:00→21:15)
[2019-03-21 19:19] LABS: ALANINE AMINOTRANSFERASE 9 U/L (0-55); ALBUMIN 3.6 GM/DL (3.2-4.5); ALKALINE PHOSPHATASE 74 U/L (40-136); BILIRUBIN,TOTAL 0.4 MG/DL (0.1-1.0); BUN/CREATININE RATIO 12; CALCIUM 9.2 MG/DL (8.5-10.1); CARBON DIOXIDE 18 MMOL/L (21-32); CHLORIDE 102 MMOL/L (98-107); CREATININE SERUM 0.85 MG/DL (0.60-1.30); GFR ESTIMATED > 60; GLUCOSE 345 MG/DL (70-105); LIPASE 9 U/L (8-78); POTASSIUM 3.5 MMOL/L (3.6-5.0); SODIUM 134 MMOL/L (135-145); TOTAL PROTEIN 6.6 GM/DL (6.4-8.2)
[2019-03-21] MEDS ORDERED: ANTACID SUSP 30 ML UDC (MYLANTA) PO ONE (19:45)
[2019-03-21] MEDS ORDERED: LIDOCAINE 2% VISCOUS 15 ML UDC PO ONE (19:45)
[2019-03-21] MEDS ORDERED: diphenhydrAMINE 50 MG/ML INJ (BENADRYL) IVP ONE (19:45)
[2019-03-21] MEDS ORDERED: MAGNESIUM 1 GM/100 ML IVPB 100 ML IV ONE (19:45)
--- NOTE | 2019-03-21 20:31 | Diagnostic Imaging Report ---
Indication: Lower abdominal pain with nausea and vomiting. Time of exam: 8:17 p.m. Right-sided chest wall port has tip overlying the SVC right atrial junction. Lungs are clear. No free air is seen. Bowel gas pattern appears to be nonobstructing. No pathologic calcifications are seen. Postop changes of posterior instrumented fusion in the lower lumbosacral spine. Impression: No acute feature detected. Dictated by: Dictated on workstation # [id number]
--- NOTE | 2019-03-21 20:39 | ED Abdominal Pain ---
General Chief Complaint: Abdominal/GI Problems Stated Complaint: ABD PAIN Nursing Triage Note: pt arrived via EMS with c/o vomitng up blood that started the last hour ago. Pt states she was in ED yesterday. Sepsis Screen: No Definite Risk Source of Information: Patient, Old Records Exam Limitations: No Limitations History of Present Illness Date Seen by Provider: Mar 21, 2019 Time Seen by Provider: 08:40 Initial Comments This 58 year old woman presents to the ER via EMS with upper abdominal pain and vomiting persistently since her ER visit last night. She was recently diagnosed with probable gastroparesis after retained food products were noted in the stomach during EGD 03/08/[address] Rubin. She also underwent balloon dilation of the distal esophagus. She was also noted to have gastritis. She is allergic to or has adverse reactions to many medications used to treat GI conditions. She has an Rx for Phenergan but has not filled it due to lack of funds. She reports seeing some specks of blood in her emesis tonight. Review of chart notes a normal barium swallow last fall and a negative CT in December. She has had upper abdominal pain since Wednesday but it is worse tonight. Allergies and Home Medications Allergies Coded Allergies: ketorolac (Verified Allergy, Severe, ANAPHYLAXIS, PT TAKES ASA AT HOME, ) ondansetron (Verified Allergy, Intermediate, RASH, 03/06/19) RASH/ HIVES scopolamine (Verified Allergy, Mild, Rash, 03/21/19) exenatide (Verified Allergy, Unknown, NAUSEA, 03/06/19) NON STOP VOMITING latex (Verified Allergy, Unknown, RASH, 03/06/19) metoclopramide (Verified Allergy, Unknown, RESTLESS LEGS, 03/06/19) erythromycin base (Verified Adverse Reaction, Unknown, 03/21/19) Home Medications Aspirin 81 Mg Tablet.dr, 81 MG PO DAILY, (Reported) Atorvastatin Calcium 40 Mg Tablet, 40 MG PO HS, (Reported) LAST FILLED #30 10-11-18 Erythromycin Base 500 Mg Tablet, 500 MG PO Q8H Prescribed by: MCKENZIE RUBIN on 03/08/19 1213 Gabapentin 800 Mg Tablet, 1,600 MG PO HS, (Reported) TAKES 2 (800MG) TABLETS Gabapentin 800 Mg Tablet, 800 MG PO DAILY PRN for NERVE PAIN, (Reported) Insulin Detemir 100 Unit/1 Ml Insuln.pen, 30 UNIT SQ DAILY, (Reported) LAST FILLED AUGUST 2018 Insulin Lispro 100 Unit/1 Ml Insuln.pen, SQ TIDAC, (Reported) LAST FILLED MARCH 2018 Linagliptin 5 Mg Tablet, 5 MG PO DAILY, (Reported) Melatonin 5 Mg Capsule, 5 MG PO HS PRN for SLEEP, (Reported) Metoprolol Succinate 50 Mg Tab.er.24h, 50 MG PO DAILY Prescribed by: SHIRA BOOTHE on 01/20/19 1315 Mirtazapine 15 Mg Tablet, 15 MG PO HS, (Reported) Omeprazole 20 Mg Capsule.dr, 20 MG PO DAILY, (Reported) Oxycodone HCl 10 Mg Tablet, 10 MG PO DAILY, (Reported) Oxycodone HCl/Acetaminophen 1 Each Tablet, 1 TAB PO Q4H PRN for PAIN-MODERATE, ( Reported) Patient Home Medication List Home Medication List Reviewed: Yes Review of Systems Review of Systems Constitutional: no symptoms reported EENTM: No Symptoms Reported Respiratory: No Symptoms Reported Cardiovascular: No Symptoms Reported Gastrointestinal: See HPI Genitourinary: No Symptoms Reported Musculoskeletal: no symptoms reported Skin: no symptoms reported Psychiatric/Neurological: No Symptoms Reported Endocrine: No Symptoms Reported Hematologic/Lymphatic: No Symptoms Reported Past Jifwwll-Gmvtez-Swxauc Hx Past Med/Social Hx: Reviewed and Corrections made Patient Social History Alcohol Use: Denies Use Number of Drinks Today: Alcohol Beverage of Choice: Wine Recreational Drug Use: No Smoking Status: Former Smoker Type Used: Cigars Former Smoker, Quit: Nov 10, 2017 2nd Hand Smoke Exposure: No Recent Foreign Travel: No Contact w/Someone Who Travel: No Recent Infectious Disease Expo: No Recent Hopitalizations: No Immunizations Up To Date Tetanus Booster (TDap): Unknown PED Vaccines UTD: No Date of Pneumonia Vaccine: Dec 12, 2013 Date of Influenza Vaccine: Sep 22, 2018 Seasonal Allergies Seasonal Allergies: Yes Past Medical History Surgeries: Yes (LITHOTRIPSY, FUSION/LAMINECTOMY X4, BMT, EGD with dilation of stricture) Cardiac, Coronary Stent, Gallbladder, Orthopedic Respiratory: Yes Chronic Bronchitis, Sleep Apnea Currently Using CPAP: Yes (ISN'T USING RIGHT NOW-ALLERGIES TOO BAD) Currently Using BIPAP: No Cardiac: Yes (CARDIAC STENT (AORTA) X 1; DVT'S IN ARMS) Chronic Edema/Swelling, Coronary Artery Disease, Deep Vein Thrombosis, High Cholesterol, Hypertension Neurological: Yes (NEUROPATHY IN HANDS AND FEET) Headaches /Migraines, Neuropathy 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 Disorders: No 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 Sexually Transmitted Disease: No HIV/AIDS: No Genitourinary: Yes Bladder Infection, Kidney Stones, Renal Failure Gastrointestinal: Yes (Gastritis, esophageal stricture, gastroparesis) Gastroesophageal Reflux, Diverticulosis, Esophagitis, Irritable Bowel Musculoskeletal: Yes Degenerate Disk Disease, Fibromyalgia, Chronic Back Pain Endocrine: Yes Diabetes, Insulin dep HEENT: Yes (GLASSES) Chronic Ear Infection Loss of Vision: Bilateral Hearing Impairment: Hard of Hearing Cancer: No Psychosocial: Yes Anxiety Integumentary: Yes Psoriasis Blood Disorders: No Adverse Reaction/Blood Tranf: No (HAS HAD BLOOD WITH NO REACTION) Family Medical History Cancer of mouth 19 FATHER ( of esophogeal cancer.) Cardiovascular disease 19 MOTHER G8 BROTHER Completed stroke 19 FATHER G8 BROTHER Diabetes mellitus G8 BROTHER FH: lung cancer 19 MOTHER Hypertension 19 FATHER Kidney disease 19 FATHER Myocardial infarction 19 MOTHER G8 BROTHER Respiratory disorder No Family History of: AIDS CAD Over 55 Years Old, CVA, Diabetes, GI Disease, Renal Disease Physical Exam Vital Signs Vital Signs - First Documented 03/21/19 03/21/19 18:45 21:44 Temp 98.2 Pulse 70 Resp 20 B/P (MAP) 142/87 (105) Pulse Ox 98 O2 Delivery Room Air Capillary Refill : Less Than 3 Seconds Height/Weight/BMI Height: 5'0" Weight: 130lbs. 6.0oz. 58.232147su; 24.5 BMI Method:Stated General Appearance: WD/WN, moderate distress HEENT: PERRL/EOMI, normal ENT inspection Neck: normal inspection Respiratory: lungs clear, normal breath sounds, no respiratory distress, no accessory muscle use Cardiovascular: regular rate, rhythm, no edema, no murmur Gastrointestinal: normal bowel sounds, soft, tenderness (across the upper abdomen, most intense in the epigastrium and the LUQ) Extremities: normal inspection, no pedal edema Neurologic/Psychiatric: cotton factor II-XII nml as tested, no motor/sensory deficits, alert, normal mood/affect, oriented x 3 Skin: normal color, warm/dry Progress/Results/Core Measures Results/Orders Lab Results Laboratory Tests Test 03/21/19 17:48 03/21/19 20:45 Range/Units White Blood Count 10.8 4.3-11.0 10^3/uL Red Blood Count 4.03 L 4.35-5.85 10^6/uL Hemoglobin 12.1 11.5-16.0 G/DL Hematocrit 36 35-52 % Mean Corpuscular Volume 89 80-99 FL Mean Corpuscular Hemoglobin 30 25-34 PG Mean Corpuscular Hemoglobin Concent 34 32-36 G/DL Red Cell Distribution Width 14.2 10.0-14.5 % Platelet Count 391 130-400 10^3/uL Mean Platelet Volume 9.6 7.4-10.4 FL Neutrophils (%) (Auto) 59 42-75 % Lymphocytes (%) (Auto) 34 12-44 % Monocytes (%) (Auto) 4 0-12 % Eosinophils (%) (Auto) 2 0-10 % Basophils (%) (Auto) 1 0-10 % Neutrophils # (Auto) 6.4 1.8-7.8 X 10^3 Lymphocytes # (Auto) 3.7 1.0-4.0 X 10^3 Monocytes # (Auto) 0.5 0.0-1.0 X 10^3 Eosinophils # (Auto) 0.2 0.0-0.3 10^3/uL Basophils # (Auto) 0.1 0.0-0.1 10^3/uL Sodium Level 134 L 135-145 MMOL/L Potassium Level 3.5 L 3.6-5.0 MMOL/L Chloride Level 102 98-107 MMOL/L Carbon Dioxide Level 18 L 21-32 MMOL/L Anion Gap 14 5-14 MMOL/L Blood Urea Nitrogen 10 7-18 MG/DL Creatinine 0.85 0.60-1.30 MG/DL Estimat Glomerular Filtration Rate > 60 BUN/Creatinine Ratio 12 Glucose Level 345 H 70-105 MG/DL Calcium Level 9.2 8.5-10.1 MG/DL Corrected Calcium 9.5 8.5-10.1 MG/DL Magnesium Level 1.6 L 1.8-2.4 MG/DL Total Bilirubin 0.4 0.1-1.0 MG/DL Aspartate Amino Transf (AST/SGOT) 9 5-34 U/L Alanine Aminotransferase (ALT/SGPT) 9 0-55 U/L Alkaline Phosphatase 74 40-136 U/L C-Reactive Protein High Sensitivity 0.04 0.00-0.50 MG/DL Total Protein 6.6 6.4-8.2 GM/DL Albumin 3.6 3.2-4.5 GM/DL Lipase 9 8-78 U/L Urine Color YELLOW Urine Clarity CLEAR Urine pH 6 5-9 Urine Specific [place] 1.020 1.016-1.022 Urine Protein 3+ H NEGATIVE Urine Glucose (UA) 3+ H NEGATIVE Urine Ketones 2+ H NEGATIVE Urine Nitrite NEGATIVE NEGATIVE Urine Bilirubin NEGATIVE NEGATIVE Urine Urobilinogen NORMAL NORMAL MG/DL Urine Leukocyte Esterase 1+ H NEGATIVE Urine RBC (Auto) NEGATIVE NEGATIVE Urine RBC NONE /HPF Urine WBC 2-5 /HPF Urine Squamous Epithelial Cells 2-5 /HPF Urine Crystals NONE /LPF Urine Bacteria TRACE /HPF Urine Casts PRESENT /LPF Urine Hyaline Casts 10-25 H /LPF Urine Mucus SMALL H /LPF Urine Yeast FEW H /HPF Urine Culture Indicated YES Micro Results Microbiology 03/21/19 Urine Culture - Final, Complete See Report My Orders Orders - WARD MUNGUIA MD Cbc With Automated Diff (03/21/19 18:42) Comprehensive Metabolic Panel (03/21/19 18:42) Hs C Reactive Protein (03/21/19 18:42) Lipase (03/21/19 18:42) Ed Iv/Invasive Line Start (03/21/19 18:42) Famotidine Injection (Pepcid Injection) (03/21/19 19:00) Pantoprazole Injection (Protonix Injecti (03/21/19 19:00) Fentanyl Injection (Sublimaze Injection (03/21/19 19:00) Promethazine Injection (Phenergan Injec (03/21/19 19:00) Ed Iv/Invasive Line Start (03/21/19 18:50) Lactated Ringers (Lr 1000 Ml Iv Solution (03/21/19 18:50) Magnesium (03/21/19 19:00) Ua Culture If Indicated (03/21/19 19:08) Magnesium 1 Gm/100 Ml Ivpb (Magnesium Day (03/21/19 19:45) Diphenhydramine Injection (Benadryl Inje (03/21/19 19:45) Lidocaine 2% Viscous 15 Ml (Xylocaine Vi (03/21/19 19:45) Antacid Suspension (Mylanta Suspension (03/21/19 19:45) Acute Abd Series (03/21/19 19:45) Urine Culture (03/21/19 20:45) Fentanyl Injection (Sublimaze Injection (03/21/19 21:15) Oxycodone/Apap 5/325mg Tablet (Percocet (03/21/19 21:15) Rx-Promethazine Hcl (Rx-Phenergan Supp) (03/21/19 21:12) Medications Given in ED Vital Signs/I&O 03/21/19 03/21/19 18:45 21:44 Temp 98.2 Pulse 70 Resp 20 20 B/P (MAP) 142/87 (105) Pulse Ox 98 O2 Delivery Room Air Progress Progress Note : Progress Note Patient was treated with Phenergan, fentanyl, Pepcid, and Protonix. This did improve her symptoms for a little while. She is unsure if GI cocktail really helped her. Pain did rebound and Percocet and fentanyl was additionally ordered. Patient had some noncritical abnormalities on her labs including hypomagnesemia and hyperglycemia. She was hydrated with a liter of IV fluid. She was given 1 g of magnesium sulfate. Patient stated she has been unable to take her Percocet due to vomiting, and I suspect she may have some degree of opioid withdrawal. She also stated she has not been taking Phenergan at home because she cannot afford it. A take-home pack of Phenergan suppositories was dispensed to her. Acute abdominal series was obtained and showed no acute abnormalities. Patient did not vomit after treatment. She was able to keep down her GI cocktail. She was advised to follow-up with Dr. Rubin and her primary care provider tomorrow morning. Unfortunately, she states adverse reactions or allergies to most medications used to treat gastroparesis and vomiting. Diagnostic Imaging Diagonstic Imaging: Xray Plain Films/CT/US/NM/MRI: chest, abdomen, pelvis Comments Acute abdominal series viewed by me and report reviewed. See report below: NAME: VALENTE HARPER [facility] REC#: [id number] PT STATUS: REG ER : 1960 PHYSICIAN: WARD MUNGUIA MD ADMIT DATE: 03/21/19/ER Draft Date of Exam:03/21/19 ACUTE ABD SERIES Indication: Lower abdominal pain with nausea and vomiting. Time of exam: 8:17 p.m. Right-sided chest wall port has tip overlying the SVC right atrial junction. Lungs are clear. No free air is seen. Bowel gas pattern appears to be nonobstructing. No pathologic calcifications are seen. Postop changes of posterior instrumented fusion in the lower lumbosacral spine. Impression: No acute feature detected. Dictated on workstation # [id number] Dict: 03/21/192025 Trans: 03/21/192029 CVB [id number] Interpreted by: YANELIS STEPHEN MD Departure Impression Primary Impression: Upper abdominal pain Additional Impressions: Nausea and vomiting Qualified Codes: R11.2 - Nausea with vomiting, unspecified Gastroparesis Hypomagnesemia Disposition: 01 HOME, SELF-CARE Condition: Improved Departure-Patient Inst. Decision time for Depature: 21:15 Referrals: [facility] (PCP/Family) Primary Care Physician Patient Instructions: Acute Abdomen (Belly Pain), Adult (DC), Gastroparesis ( Delayed Gastric Emptying) Add. Discharge Instructions: Drink plenty of clear liquids. Gradually advance your diet with small quantities of bland food as tolerated. Monitor your blood sugars closely. Contact Dr. Rubin and your primary care provider soon as office is open in the morning to arrange follow-up, preferably this week. Return to the ER if symptoms are worsening again. Use suppositories of Phenergan (promethazine) inserted rectally every 6 hours as needed for nausea and vomiting. All discharge instructions reviewed with patient and/or family. Voiced understanding. Copy Copies To 1: TABATHA COVARRUBIAS MD Copies To 2: MCKENZIE RUBIN MD, JOSHUA T MD Mar 21, 2019 20:39
[2019-03-21 20:51] LABS: BILIRUBIN,URINE NEGATIVE (NEGATIVE); CLARITY,URINE CLEAR; COLOR,URINE YELLOW; GLUCOSE, URINE (UA) 3+ (NEGATIVE); KETONES,URINE 2+ (NEGATIVE); LEUKOCYTE ESTERASE ,URINE 1+ (NEGATIVE); NITRITE,URINE NEGATIVE (NEGATIVE); PH,URINE 6 (5-9); PROTEIN,URINE 3+ (NEGATIVE); UROBILINOGEN,URINE NORMAL (NORMAL)
[2019-03-21 21:03] LABS: BACTERIA,URINE TRACE /HPF; YEAST,URINE FEW /HPF
[2019-03-21] MEDS ORDERED: RX-PHENERGAN 25 MG SUPP PPK#3 PR STA (21:12)
[2019-03-21] MEDS ORDERED: oxyCODONE/APAP 5/325MG (PERCOCET 5) TABLET PO ONE (21:15)
[2019-03-21 21:44] VITALS: BP 142/87
== END 2019-03-21 21:44 | disposition home or self-care (01) ==
LOC: EDUNIT# 18:38 → ER 18:39
DX: E11.43 Type 2 diabetes mellitus with diabetic autonomic (poly)neuropathy (principal); K31.84 Gastroparesis; E83.42 Hypomagnesemia; G47.30 Sleep apnea, unspecified; I25.10 Atherosclerotic heart disease of native coronary artery without angina pectoris; E78.00 Pure hypercholesterolemia, unspecified; I10 Essential (primary) hypertension; E11.40 Type 2 diabetes mellitus with diabetic neuropathy, unspecified; G43.909 Migraine, unspecified, not intractable, without status migrainosus; K21.0 Gastro-esophageal reflux disease with esophagitis; F41.9 Anxiety disorder, unspecified; K58.9 Irritable bowel syndrome, unspecified; Z86.718 Personal history of other venous thrombosis and embolism; Z87.09 Personal history of other diseases of the respiratory system; Z82.49 Family history of ischemic heart disease and other diseases of the circulatory system; Z80.1 Family history of malignant neoplasm of trachea, bronchus and lung; Z80.0 Family history of malignant neoplasm of digestive organs; Z87.19 Personal history of other diseases of the digestive system; Z87.442 Personal history of urinary calculi; Z87.448 Personal history of other diseases of urinary system; Z88.4 Allergy status to anesthetic agent; Z91.040 Latex allergy status; Z91.041 Radiographic dye allergy status; Z88.8 Allergy status to other drugs, medicaments and biological substances; Z79.82 Long term (current) use of aspirin; Z79.4 Long term (current) use of insulin; Z87.891 Personal history of nicotine dependence; Z95.5 Presence of coronary angioplasty implant and graft; Z98.1 Arthrodesis status
CPT/HCPCS: 36415; 74022; 80053; 81000; 83690; 83735; 85025; 86141; 87088; 96361; 96365; 96375; 96376

== ENCOUNTER → 2019-04-04 | Outpatient (CLI) | payer MEDICARE ==
[~2019-04-04] MED LIST changes: +CATHETER FLUSH 10 ML SYR IV PRN; +REGADENOSON 0.4 MG/5 ML SYR (LEXISCAN) IV ONE
[2019-04-04 08:59] VITALS: BP 156/84
[2019-04-04 09:13] VITALS: BP 144/76
--- NOTE | 2019-04-04 13:15 | STRESS TEST ---
DATE OF SERVICE: RESTING AND POST REGADENOSON TECHNETIUM-99M TETROFOSMIN SPECT CT IMAGING CLINICAL DIAGNOSIS: Syncope. Baseline images were carried out after injection of 10.16 mCi of technetium-99m Tetrofosmin. This was followed by 0.4 mg of regadenoson and 29.5 mCi of technetium-99m Tetrofosmin for stress imaging. The electrocardiogram showed sinus rhythm at baseline. It did not change significantly with the regadenoson infusion. The patient tolerated the procedure well. Review of images at rest and following stress does not indicate any significant perfusion defects consistent with any significant myocardial ischemia or infarction. Gated images show normal global left ventricular systolic function with normal regional wall motion. Left ventricular ejection fraction is calculated to be 86%. Left ventricular end diastolic volume is 40 mL. TID is absent (0.88). CONCLUSIONS: 1. No evidence of any significant myocardial ischemia or infarction is seen. 2. Normal regional wall motion. 3. Normal to hyperdynamic left ventricular systolic function with a calculated ejection fraction of 86%. Job ID: [id number] DocumentID: [id number] Dictated Date: 04/04/2019 11:57:35 Egg Separator Date: 04/04/2019 13:14:42 Dictated By: RICH FELIX MD, MA, FACP, FACC,
== END ==
LOC: CARD 07:26
PROVIDERS: ATTEND Internal Medicine Cardiovascular Disease
DX: R55 Syncope and collapse (principal); I25.10 Atherosclerotic heart disease of native coronary artery without angina pectoris; I77.89 Other specified disorders of arteries and arterioles; G47.33 Obstructive sleep apnea (adult) (pediatric); E13.9 Other specified diabetes mellitus without complications; I10 Essential (primary) hypertension; F17.290 Nicotine dependence, other tobacco product, uncomplicated
CPT/HCPCS: 78452; 93017; 93225; 93226

== ENCOUNTER 2019-04-22 15:27 | Emergency (ER) | payer MEDICARE ==
[~2019-04-22] VITALS: Ht 152.4 cm; Wt 56.7 kg
[~2019-04-22 15:27] MED LIST changes: -CATHETER FLUSH 10 ML SYR IV PRN; -REGADENOSON 0.4 MG/5 ML SYR (LEXISCAN) IV ONE; -TRAZ-189 PO; +TRAZ-222 PO
[2019-04-22] MEDS ORDERED: NS IV 1000 ML 1,000 ML IV SCH (16:00)
[2019-04-22] MEDS ORDERED: diphenhydrAMINE 50 MG/ML INJ (BENADRYL) IVP ONE ×2 (16:00→16:45)
[2019-04-22] MEDS ORDERED: PROMETHAZINE INJ 25 MG/ML (PHENERGAN) AMP IVP ONE (16:00)
--- NOTE | 2019-04-22 16:45 | Diagnostic Imaging Report ---
PROCEDURE: CT head without contrast. TECHNIQUE: Multiple contiguous axial images were obtained through the brain without the use of intravenous contrast. Auto Exposure Controls were utilized during the CT exam to meet ALARA standards for radiation dose reduction. INDICATION: Migraine headache with vomiting and light sensitivity. COMPARISON: Head CT performed on 12/25/2016. FINDINGS: BRAIN: No parenchymal hemorrhage, midline shift, or mass effect. Gomez-white matter differentiation is adequately preserved, without evidence of acute territorial infarct. Focal hypodensity in the right subinsular region is unchanged and likely reflects old lacunar infarct. Mild periventricular and subcortical low-density white matter changes. Mild prominence of the ventricles and sulci consistent with with cortical and cerebellar parenchymal volume loss, commensurate with age. EXTRA-AXIAL SPACES: No subdural or epidural collections. ORBITS AND PARANASAL SINUSES: Visualized orbits and globes are intact. There is near complete opacification of the left maxillary sinus. There is mucosal thickening and partial opacification of the left ethmoid air cells. The visualized paranasal sinuses and mastoid air cells are otherwise clear. CALVARIUM AND SOFT TISSUES: The calvarium is intact. No fractures or suspicious bony lesions. The extracranial soft tissues are unremarkable. IMPRESSION: No acute intracranial pathology. No significant change from prior. Dictated by: Dictated on workstation # [id number]
[2019-04-22] MEDS ORDERED: oxyCODONE/APAP 10/325MG (PERCOCET 10) TABLET PO ONE (17:00)
--- NOTE | 2019-04-22 17:04 | ED Headache ---
General Chief Complaint: Head/Cervical Problems Stated Complaint: MIGRAINE Nursing Triage Note: Pt c/o migraine accompanied by vomiting and light sensitivity that began three days ago. Pt reports taking percocet, tylenol, cold tablets, and sinus medication and has vomited all up. Nursing Sepsis Screen: No Definite Risk Source: patient Exam Limitations: no limitations History of Present Illness Date Seen by Provider: Apr 22, 2019 Time Seen by Provider: 15:57 Initial Comments 58-year-old female who presents to the emergency room with complaints of a migraine with vomiting and photophobia that began 3 days ago. She reports that this is the worst migraine of her life. She reports not being able to keep down her prescribed Percocet for her chronic pain. She denies fevers. Severity/Quality: pressure Location: global Associated Symptoms: nausea/vomiting Allergies and Home Medications Allergies Coded Allergies: ketorolac (Verified Allergy, Severe, ANAPHYLAXIS, PT TAKES ASA AT HOME, 03/06/19) ondansetron (Verified Allergy, Intermediate, RASH, 03/06/19) RASH/ HIVES scopolamine (Verified Allergy, Mild, Rash, 03/21/19) exenatide (Verified Allergy, Unknown, NAUSEA, 03/06/19) NON STOP VOMITING latex (Verified Allergy, Unknown, RASH, 03/06/19) metoclopramide (Verified Allergy, Unknown, RESTLESS LEGS, 03/06/19) erythromycin base (Verified Adverse Reaction, Unknown, 03/21/19) Home Medications Aspirin 81 Mg Tablet.dr, 81 MG PO DAILY, (Reported) Atorvastatin Calcium 40 Mg Tablet, 40 MG PO HS, (Reported) LAST FILLED #30 10-11-18 Erythromycin Base 500 Mg Tablet, 500 MG PO Q8H Prescribed by: MCKENZIE CHAVEZ on 03/08/19 1213 Gabapentin 800 Mg Tablet, 1,600 MG PO HS, (Reported) TAKES 2 (800MG) TABLETS Gabapentin 800 Mg Tablet, 800 MG PO DAILY PRN for NERVE PAIN, (Reported) Insulin Detemir 100 Unit/1 Ml Insuln.pen, 30 UNIT SQ DAILY, (Reported) LAST FILLED AUGUST 2018 Insulin Lispro 100 Unit/1 Ml Insuln.pen, SQ TIDAC, (Reported) LAST FILLED MARCH 2018 Linagliptin 5 Mg Tablet, 5 MG PO DAILY, (Reported) Melatonin 5 Mg Capsule, 5 MG PO HS PRN for SLEEP, (Reported) Metoprolol Succinate 50 Mg Tab.er.24h, 50 MG PO DAILY Prescribed by: SHIRA BOOTHE on 01/20/19 1315 Mirtazapine 15 Mg Tablet, 15 MG PO HS, (Reported) Omeprazole 20 Mg Capsule.dr, 20 MG PO DAILY, (Reported) Oxycodone HCl 10 Mg Tablet, 10 MG PO DAILY, (Reported) Oxycodone HCl/Acetaminophen 1 Each Tablet, 1 TAB PO Q4H PRN for PAIN-MODERATE, (Reported) Patient Home Medication List Home Medication List Reviewed: Yes Review of Systems Review of Systems Constitutional: see HPI; No chills, No fever Gastrointestinal: see HPI, nausea, vomiting Psychiatric/Neurological: See HPI, Headache All Other Systems Reviewed Negative Unless Noted: Yes Past Tpznziy-Tujmdg-Tineqr Hx Past Med/Social Hx: Reviewed Nursing Past Med/Soc Hx Patient Social History Alcohol Use: Denies Use Number of Drinks Today: Alcohol Beverage of Choice: Wine Recreational Drug Use: No Smoking Status: Current Everyday Smoker Type Used: Cigars, Cigarettes Former Smoker, Quit: Nov 10, 2017 2nd Hand Smoke Exposure: No Recent Foreign Travel: No Contact w/Someone Who Travel: No Recent Infectious Disease Expo: No Recent Hopitalizations: No Immunizations Up To Date Tetanus Booster (TDap): Unknown PED Vaccines UTD: No Date of Pneumonia Vaccine: Dec 12, 2013 Date of Influenza Vaccine: Sep 22, 2018 Seasonal Allergies Seasonal Allergies: Yes Past Medical History Surgeries: Yes (LITHOTRIPSY, FUSION/LAMINECTOMY X4, BMT, EGD with dilation of stricture) Cardiac, Coronary Stent, Gallbladder, Orthopedic Respiratory: Yes Chronic Bronchitis, Sleep Apnea Currently Using CPAP: Yes (ISN'T USING RIGHT NOW-ALLERGIES TOO BAD) Currently Using BIPAP: No Cardiac: Yes (CARDIAC STENT (AORTA) X 1; DVT'S IN ARMS) Chronic Edema/Swelling, Coronary Artery Disease, Deep Vein Thrombosis, High Cholesterol, Hypertension Neurological: Yes (NEUROPATHY IN HANDS AND FEET) Headaches /Migraines, Neuropathy 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 Disorders: No 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 Disorders: Denies PACU RN History: Menopausal Sexually Transmitted Disease: No HIV/AIDS: No Genitourinary: Yes Bladder Infection, Kidney Stones, Renal Failure Gastrointestinal: Yes (Gastritis, esophageal stricture, gastroparesis) Gastroesophageal Reflux, Diverticulosis, Esophagitis, Irritable Bowel Musculoskeletal: Yes Degenerate Disk Disease, Fibromyalgia, Chronic Back Pain Endocrine: Yes Diabetes, Insulin dep HEENT: Yes (GLASSES) Chronic Ear Infection Loss of Vision: Bilateral Hearing Impairment: Hard of Hearing Cancer: No Psychosocial: Yes Anxiety Integumentary: Yes Psoriasis Blood Disorders: No Adverse Reaction/Blood Tranf: No (HAS HAD BLOOD WITH NO REACTION) Family Medical History Reviewed Nursing Family Hx Cancer of mouth 19 FATHER ( of esophogeal cancer.) Cardiovascular disease 19 MOTHER G8 BROTHER Completed stroke 19 FATHER G8 BROTHER Diabetes mellitus G8 BROTHER FH: lung cancer 19 MOTHER Hypertension 19 FATHER Kidney disease 19 FATHER Myocardial infarction 19 MOTHER G8 BROTHER Respiratory disorder No Family History of: AIDS CAD Over 55 Years Old, CVA, Diabetes, GI Disease, Renal Disease Physical Exam Vital Signs Vital Signs - First Documented 04/22/19 15:31 Temp 98.3 Pulse 88 Resp 18 B/P (MAP) 148/81 (103) Pulse Ox 97 O2 Delivery Room Air Capillary Refill : Less Than 3 Seconds Height, Weight, BMI Height: 5'0" Weight: 125lbs. 6.0oz. 56.855957fs; 24.5 BMI Method:Stated General Appearance: WD/WN, no apparent distress HEENT: PERRL/EOMI, normal ENT inspection, TMs normal, pharynx normal Cardiovascular: normal peripheral pulses, regular rate, rhythm, no edema, no gallop, no JVD, no murmur Respiratory: chest non-tender, lungs clear, normal breath sounds, no respiratory distress, no accessory muscle use Extremities: normal capillary refill Psychiatric: alert, oriented x 3 Crainal Nerves: normal hearing, normal speech, PERRL Coordination/Gait: normal finger to nose, normal gait Progress/Results/Core Measures Results/Orders My Orders Orders - ZELALEM EVANS Ct Head Wo (04/22/19 15:55) Promethazine Injection (Phenergan Injec (04/22/19 16:00) Diphenhydramine Injection (Benadryl Inje (04/22/19 16:00) Ns Iv 1000 Ml (Sodium Chloride 0.9%) (04/22/19 16:00) Ed Iv/Invasive Line Start (04/22/19 15:55) Diphenhydramine Injection (Benadryl Inje (04/22/19 16:45) Oxycodone/Acet 10/325mg Tablet (Percocet (04/22/19 17:00) Fentanyl Injection (Sublimaze Injection (04/22/19 18:00) Medications Given in ED Vital Signs/I&O 04/22/19 04/22/19 15:31 19:23 Temp 98.3 Pulse 88 78 Resp 18 18 B/P (MAP) 148/81 (103) 147/80 (102) Pulse Ox 97 96 O2 Delivery Room Air Room Air Blood Pressure Mean: 103 Progress Progress Note : Time: 18:03 Progress Note I have seen and evaluated the patient. I've informed her of her imaging studies. She reports feeling better at this time. She wishes to go home and rest and try taking her prescribed medications. She agrees with plan of care, plans for discharge, return precautions were given. Diagnostic Imaging Diagonstic Imaging: CT Plain Films/CT/US/NM/MRI: head Comments NAME: VALENTE HARPER MED REC#: [id number] PT STATUS: DEP ER : 1960 PHYSICIAN: ZELALEM EVANS ADMIT DATE: 04/22/19/ER Signed Date of Exam: 04/22/19 CT HEAD WO PROCEDURE: CT head without contrast. TECHNIQUE: Multiple contiguous axial images were obtained through the brain without the use of intravenous contrast. Auto Exposure Controls were utilized during the CT exam to meet ALARA standards for radiation dose reduction. INDICATION: Migraine headache with vomiting and light sensitivity. COMPARISON: Head CT performed on 12/25/2016. FINDINGS: BRAIN: No parenchymal hemorrhage, midline shift, or mass effect. Gomez-white matter differentiation is adequately preserved, without evidence of acute territorial infarct. Focal hypodensity in the right subinsular region is unchanged and likely reflects old lacunar infarct. Mild periventricular and subcortical low-density white matter changes. Mild prominence of the ventricles and sulci consistent with with cortical and cerebellar parenchymal volume loss, commensurate with age. EXTRA-AXIAL SPACES: No subdural or epidural collections. ORBITS AND PARANASAL SINUSES: Visualized orbits and globes are intact. There is near complete opacification of the left maxillary sinus. There is mucosal thickening and partial opacification of the left ethmoid air cells. The visualized paranasal sinuses and mastoid air cells are otherwise clear. CALVARIUM AND SOFT TISSUES: The calvarium is intact. No fractures or suspicious bony lesions. The extracranial soft tissues are unremarkable. IMPRESSION: No acute intracranial pathology. No significant change from prior. Dictated by: Dictated on workstation # [id number] Dict: 04/22/19 1637 Trans: 04/23/19 1055 Interpreted by: SHAWN KAUFFMAN DO Electronically signed by: SHAWN KAUFFMAN DO 04/23/19 1055 Reviewed: Reviewed by Me Departure Impression Primary Impression: Migraine Disposition: 01 HOME, SELF-CARE Condition: Stable/Unchanged Departure-Patient Inst. Decision time for Depature: 18:03 Referrals: [facility] (PCP/Family) Primary Care Physician Patient Instructions: Migraine Headache (DC) Add. Discharge Instructions: Resume your home medication as previously prescribed. Follow-up with your primary care provider within 1 week for recheck. Return back to the emergency room for worsening symptoms or concerns as needed. All discharge instructions reviewed with patient and/or family. Voiced understanding. ZELALEM EVANS Apr 22, 2019 17:04
[2019-04-22] MEDS ORDERED: fentaNYL INJECTION 100 MCG/2 ML AMP IVP ONE (18:00)
[2019-04-22 19:23] VITALS: BP 147/80
--- OUTSIDE RECORDS SUMMARY | 2019-04-22 20:22 | XMS REPORT ---
Author Author Migration, Doctor Organization [facility] Address Unknown Phone Unavailable Care Team Providers Care Relocation Counselor Name Role Phone Migration, Doctor Unavailable Unavailable PROBLEMS Type Condition ICD9-CM Code RIZ00-FX Code Onset Dates Condition Status SNOMED Code Problem Vitamin D deficiency E55.9 Active 90079357 Problem Degenerative disc disease, lumbar M51.36 Active 58358210 Problem Alterations of sensations R20.9 Active 136012141 Problem Primary insomnia F51.01 Active 0679521 Problem Seasonal allergic rhinitis due to pollen J30.1 Active 48794190 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 Active 131636312 Problem Essential hypertension I10 Active 22037974 Problem Tobacco abuse Z72.0 Active 94624446 Problem CAD (coronary artery disease) I25.10 Active 21821284 Problem Chronic pain syndrome G89.4 Active 375971058 Problem Tobacco abuse counseling Z71.6 Active 547276697 Problem Dental caries K02.9 Active 54627780 Problem DM neuro manif type II E11.49 Active 51584627 Problem Arthritis M19.90 Active 6327607 Problem Other obesity due to excess calories E66.09 Active 618604281 Problem Body mass index (BMI) of 33.0-33.9 in adult Z68.33 Active 033788845 Problem Type 2 diabetes mellitus without complication E11.9 Active 284827673 Problem Fibromyalgia M79.7 Active 06470005 Problem Frequent falls R29.6 Active 658475660 Problem Hyperlipidemia E78.5 Active 18418223 Problem GERD (gastroesophageal reflux disease) K21.9 Active 525442883 Problem Diabetic mononeuropathy associated with type 2 diabetes mellitus E11.41 Active 751328285 Problem Cervicalgia M54.2 Active 07794261 Problem Type 2 diabetes mellitus with hyperglycemia E11.65 Active [id number] Problem Dysphagia, unspecified type R13.10 Active 48163005 ALLERGIES No Information ENCOUNTERS Encounter Location Date Diagnosis [facility] [address] [facility] [id number] [address] March, [facility] [id number] [address] March, [facility] [id number] [place] [address] Feb, [facility] [id number] [place] [address] Jan, [facility] [id number] [place] [address] Dec, [facility] [id number] [place] [address] Dec, [facility] [id number] [place] [address] Dec, Dysuria R30.0 [facility] [id number] [place] [address] Dec, [facility] [id number] [place] [address] Dec, Hematuria, unspecified type R31.9 ; Frequent falls R29.6 and Type 2 diabetes mellitus with hyperglycemia E11.65 [facility] [id number] [address] 08 Dec, 2018 [facility] [id number] [place] [address] Dec, Syncope and collapse R55 and Seizure R56.9 [facility] [id number] [address] Dec, [facility] [id number] [place] [address] Nov, [facility] [id number] [address] Nov, [facility] [id number] [place] [address] Nov, Type 2 diabetes mellitus with hyperglycemia E11.65 ; Diarrhea, unspecified R19.7 ; Nausea with vomiting, unspecified R11.2 ; Weakness R53.1 ; Hyperlipidemia E78.5 ; Anemia, unspecified type D64.9 and Peripheral edema R60.9 [place] [id number] [place] [address] Nov, [place] [address] [address] Oct, DM neuro manif type II E11.[address] [address] Oct, [address] [address] Oct, GERD (gastroesophageal reflux disease) K21.[address] [address] Sep, [place] [address] [address] Sep, Type 2 diabetes mellitus without complication E11.9 ; Peripheral edema R60.9 ; Weakness R53.1 ; Acute pain of right knee M25.561 ; Degenerative disc disease, lumbar M51.36 ; Fibromyalgia M79.7 and Anemia, unspecified type D64.9 [place] [id number] [place] [address] Sep, [place] [address] [address] Sep, [place] [id number] [place] [address] Sep, [address] [address] Sep, Type 2 diabetes mellitus with hyperglycemia E11.65 ; Other microscopic hematuria R31.29 ; Nausea and vomiting, intractability of vomiting not specified, unspecified vomiting type R11.2 and Dizziness R42 [place] [address] [address] Sep, [facility] [address] [address] Sep, [place] [address] [address] Sep, GERD (gastroesophageal reflux disease) K21.9 [place] [address] [address] Aug, [place] [address] [address] Aug, DM neuro manif type II E11.49 [place] [address] [address] Aug, [place] [address] [address] Jul, [place] [address] [address] Jul, Elevated serum creatinine R79.89 [place] [address] [address] 17 Jul, 2018 [place] [address] [address] 14 Jul, 2018 [place] [address] [address] 06 Jul, 2018 [place] [id number] [place] [address] Jun, DM neuro manif type II E11.49 ; Hyperlipidemia E78.5 ; GERD (gastroesophageal reflux disease) K21.9 ; Fibromyalgia M79.7 ; assisted current use of insulin Z79.4 ; Chronic pain syndrome G89.4 ; Primary insomnia F51.01 ; Seasonal allergic rhinitis due to pollen J30.1 ; Elevated serum creatinine R79.89 and Dysphagia, unspecified type R13.10 [place] [id number] [place] [address] Apr, Type 2 diabetes mellitus with hyperglycemia E11.65 [place] [address] [address] Apr, Hyperlipidemia E78.5 ; Chronic pain syndrome G89.4 ; Cervicalgia M54.2 ; DM neuro manif type II E11.49 ; assisted current use of insulin Z79.4 ; Nausea alone R11.0 ; Essential hypertension I10 ; GERD (gastroesophageal reflux disease) K21.9 ; CAD (coronary artery disease) I25.10 and Diabetic mononeuropathy associated with type 2 diabetes mellitus E11.41 [place] [address] [address] Apr, [address] [address] March, Essential hypertension I10 ; DM neuro manif type II E11.49 and GERD (gastroesophageal reflux disease) K21.9 [place] [address] [address] March, DM neuro manif type II E11.49 and GERD (gastroesophageal reflux disease) K21.9 [place] [id number] [place] [address] March, [place] [id number] [place] [address] Feb, Tobacco abuse Z72.0 [place] [address] [address] Feb, Tobacco abuse Z72.0 [place] [address] [address] Feb, Hypokalemia E87.6 [place] [address] [address] Feb, Hyperlipidemia E78.5 ; Essential hypertension I10 ; DM neuro manif type II E11.49 ; Fibromyalgia M79.7 ; Acute non-recurrent frontal sinusitis J01.10 ; Other obesity due to excess calories E66.09 and Body mass index (BMI) of 33.0-33.9 in adult Z68.33 [place] [address] [address] 05 Jan, 2018 Dysuria R30.0 [place] [address] [address] Jan, Dysuria R30.0 [place] [address] [address] Jan, Acute cystitis with hematuria N30.01 ; DM neuro manif type II E11.49 ; 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 [address] [address] Dec, [facility] [address] [address] Dec, [facility] [address] [address] 16 Dec, 2017 Dysuria R30.0 ; Acute cystitis with hematuria N30.01 and Weakness R53.1 [place] [id number] [place] [address] Dec, [place] [id number] [place] [address] Nov, [place] [id number] [place] [address] Nov, [place] [address] [address] Nov, Essential hypertension I10 ; DM neuro [...] Seasonal allergic rhinitis due to pollen J30.[address] [address] Nov, Alterations of sensations R20.9 [place] [id number] [place] [address] Sep, DM neuro manif type II E11.49 ; Hyperlipidemia E78.5 ; Degenerative disc disease, lumbar M51.36 and Chronic pain syndrome G89.4 [place] [id number] [place] [address] Sep, Arthritis M19.90 [place] [id number] [place] [address] Sep, Type 2 diabetes mellitus without complication E11.9 ; GERD (gastroesophageal reflux disease) K21.9 ; Arthritis M19.90 and Chronic pain syndrome G89.4 [place] [id number] [place] [address] Sep, [place] [id number] [place] [address] Aug, [place] [id number] [place] [address] 18 Aug, 2017 Type 2 diabetes mellitus without complication E11.9 [facility] [id number] [place] [address] 17 Aug, 2017 [facility] [id number] [place] [address] 16 Aug, 2017 [facility] [address] [address] 16 Aug, 2017 [facility] [id number] [place] [address] 26 Jul, 2017 [facility] [id number] [place] [address] 22 Jul, 2017 Acute non-recurrent frontal sinusitis J01.10 [place] [address] [address] 20 Jul, 2017 CAD (coronary artery disease) I25.10 and GERD (gastroesophageal reflux disease) K21.9 [place] [id number] [place] [address] 14 Jul, 2017 Localized swelling, mass and lump, neck R22.1 [place] [id number] [place] [address] 06 Jul, 2017 [place] [id number] [place] [address] 15 Jun, 2017 Type 2 diabetes mellitus without complication E11.9 ; Primary insomnia F51.01 ; Alterations of sensations R20.9 ; Hyperlipidemia E78.5 ; GERD (gastroesophageal reflux disease) K21.9 ; Essential hypertension I10 ; assisted current use of insulin Z79.4 ; Tobacco abuse Z72.0 ; Tobacco abuse counseling Z71.6 and CAD (coronary artery disease) I25.10 [place] [id number] [place] [address] May, [place] [address] [place] [address] May, Type 2 diabetes mellitus without complication E11.9 [facility] [id number] [place] [address] May, [facility] [id number] [place] [address] March, [facility] [id number] [place] [address] Feb, [facility] [id number] [place] [address] Jan, Acute suppurative otitis media of left ear with spontaneous rupture of tympanic membrane, recurrence not specified H66.012 [place] [id number] [place] [address] 17 Dec, 2016 Type 2 diabetes mellitus without complication E11.9 ; Lumbago M54.5 ; Cervicalgia M54.2 ; Hyperlipidemia E78.5 ; GERD (gastroesophageal reflux disease) K21.9 ; Chronic pain syndrome G89.4 ; Dysuria R30.0 and Essential hypertension I10 [place] [id number] [place] [address] Oct, [place] [id number] [place] [address] 30 Sep, 2016 Diabetic mononeuropathy associated with type 2 diabetes mellitus E11.41 and Coughing R05 [place] [id number] [place] [address] 28 Sep, 2016 Diabetic mononeuropathy associated with type 2 diabetes mellitus E11.41 and Coughing R05 [place] [id number] [place] [address] Sep, Onychomycosis B35.1 ; Neuritis M79.2 and Type 2 diabetes mellitus without complication E11.9 [place] [id number] [place] [address] 14 Sep, 2016 [place] [id number] [place] [address] 03 Sep, 2016 Cough R05 ; Seasonal allergic rhinitis due to pollen J30.1 and Acute upper respiratory infection, unspecified J06.9 [place] [id number] [place] [address] Sep, [place] [id number] [place] [address] Aug, [place] [id number] [place] [address] 13 Jul, 2016 Type 2 diabetes mellitus without complication E11.9 ; Chronic pain G89.29 ; Essential hypertension I10 and Acute non-recurrent maxillary sinusitis J01.00 [place] [id number] [place] [address] Jul, Chronic pain syndrome G89.4 ; Lumbago M54.5 and Cervicalgia M54.2 [place] [id number] [place] [address] Jul, [place] [address] [address] Jul, [place] [id number] [place] [address] Jun, Onychomycosis B35.1 ; Onychocryptosis L60.0 and DM neuro manif type II E11.49 [place] [id number] [place] [address] Jun, Type 2 diabetes mellitus without complication E11.9 ; Pain in unspecified hip M25.559 ; Other chronic pain G89.29 ; Lumbago M54.5 ; Chronic pain G89.29 ; Insomnia, unspecified G47.00 ; GERD (gastroesophageal reflux disease) K21.9 and Dental caries K02.9 [place] [id number] [place] [address] Jun, Type 2 diabetes mellitus without complication E11.9 ; Lumbago M54.5 ; Chronic pain G89.29 ; Insomnia, unspecified G47.00 ; GERD (gastroesophageal reflux disease) K21.9 ; Dental caries K02.9 ; Pain in unspecified hip M25.559 and Other chronic pain G89.29 [place] [id number] [place] [address] May, [address] [address] May, Type 2 diabetes mellitus without complication E11.9 ; Essential hypertension I10 ; Chronic pain syndrome G89.4 ; Other seasonal allergic rhinitis J30.2 and Insomnia, unspecified G47.00 [place] [id number] [place] [address] Apr, [address] [address] Apr, Hypertension I10 and Chronic pain G89.29 [place] [id number] [place] [address] March, Onychomycosis B35.1 ; Onychocryptosis L60.0 and Type 2 diabetes mellitus without complication E11.9 [place] [id number] [place] [address] March, Type 2 diabetes mellitus without complication E11.9 ; Essential hypertension I10 ; Alterations of sensations R20.9 ; Chronic pain syndrome G89.4 ; Tobacco abuse Z72.0 and Tobacco abuse counseling Z71.6 [place] [id number] [place] [address] Feb, Cough R05 ; Type 2 diabetes mellitus without complication E11.9 ; Tobacco abuse counseling Z71.6 and Chronic pain G89.29 [place] [id number] [place] [address] Feb, [address] [address] Feb, Type 2 diabetes mellitus without complication E11.9 ; Lumbago M54.5 ; Cervicalgia M54.2 ; Degenerative disc disease, lumbar M51.36 and Numbness and tingling of both legs 782.0 [facility] [id number] [place] [id number] Jan, Dental caries K02.9 and Encounter for dental examination Z01.[address] [address] Jan, Type 2 diabetes mellitus without complication E11.[address] [address] Jan, Type 2 diabetes mellitus without complication E11.9 ; Numbness and tingling of both legs 782.0 ; Fibromyalgia M79.7 ; Hyperlipidemia E78.5 ; Lumbago M54.5 ; Cervicalgia M54.2 ; Hypertension I10 ; CAD (coronary artery disease) I25.10 ; Tobacco abuse Z72.0 ; Tobacco abuse counseling Z71.6 and GERD (gastroesophageal reflux disease) K21.[address] [address] Jan, [place] [address] [address] Dec, [facility] [id number] [place] [id number] Dec, Dental examination Z01.20 and Dental caries K02.[address] [address] Dec, Edema R60.9 ; Type 2 diabetes mellitus without complication E11.9 ; Hypertension I10 and Mouth pain K13.[address] [address] 16 Dec, 2015 Degenerative disc disease, lumbar M51.[address] [address] Dec, [place] [id number] [place] [address] Nov, Insomnia, unspecified G47.00 [place] [address] [address] Nov, Type 2 diabetes mellitus without complication E11.9 ; Lumbago M54.5 ; Degenerative disc disease, lumbar M51.36 ; Fibromyalgia M79.7 ; Coronary artery disease I25.10 ; Hyperlipidemia E78.5 ; Controlled substance agreement signed Z79.899 ; Dysuria R30.0 ; Insomnia, unspecified G47.00 ; GERD (gastroesophageal reflux disease) K21.9 ; Hypertension 401.9 and 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 [place] [address] [address] Nov, [address] [address] Oct, Degenerative disc disease, lumbar M51.36 ; Cervicalgia M54.2 ; Insomnia, unspecified G47.00 ; Decreased GFR R94.4 and GERD (gastroesophageal reflux disease) K21.9 [place] [address] [address] Oct, Lumbago M54.5 [place] [address] [address] Oct, Low back pain M54.5 [place] [address] [address] Oct, [address] [address] Oct, Disorientation R41.[address] [address] Oct, Type 2 diabetes mellitus without complication E11.9 ; Disorientation R41.0 and Chest pain R07.9 [place] [address] [place] [address] Oct, [facility] [id number] [place] [address] Sep, Low back pain M54.5 [facility] [id number] [place] [address] Sep, Insomnia, unspecified G47.00 [facility] [address] [address] Aug, Degenerative disc disease, lumbar M51.36 ; Type 2 diabetes mellitus without complication E11.9 and Encounter for immunization Z23 [facility] [address] [address] Aug, [facility] [address] [address] Aug, [facility] [address] [address] Aug, [facility] [id number] [place] [address] Jul, [facility] [id number] [place] [address] Jun, [facility] [id number] [place] [address] Jun, Chest pain 786.50 and Lumbago 724.2 [facility] [id number] [place] [address] Jun, [facility] [id number] [place] [address] Jun, [facility] [id number] [place] [id number] Jun, Dental examination V72.2 [facility] [id number] [place] [address] Jun, [facility] [id number] [address] May, Left shoulder pain 719.41 and Numbness and tingling of both legs 782.0 [facility] [id number] [place] [address] May, Cough 786.2 ; Numbness and tingling of both legs 782.0 and Acute rhinitis 460 [facility] [id number] [place] [address] May, [facility] [id number] [place] [address] Apr, [facility] [id number] [place] [address] Apr, Bilateral lower extremity edema 782.3 ; Lumbago 724.2 and Insomnia 780.52 [facility] [id number] [place] [address] Apr, [facility] [id number] [place] [address] Apr, [facility] [id number] [place] [address] March, Seborrheic keratosis 702.19 and Skin lesion of face 709.9 [facility] [id number] [place] [address] March, [facility] [id number] [place] [address] March, [facility] [id number] [place] [address] March, [facility] [id number] [place] [address] March, [facility] [address] [id number] [address] Feb, [facility] [address] [id number] [place] [address] 13 Feb, 2014 [facility] [place] [facility] [address] [id number] [place] [address] 25 Jan, 2015 [facility] [place] [facility] [address] [id number] [place] [address] 25 Jan, 2015 [facility] [place] [facility] [address] [id number] [place] [address] 16 Jan, 2014 [facility] [place] [facility] [address] [id number] [place] [address] 16 Jan, 2015 [facility] [place] [facility] [address] [id number] [place] [address] 16 Jan, 2015 [facility] [place] [facility] [address] [id number] [place] [address] 16 Jan, 2014 [facility] [place] [facility] [address] [id number] [place] [address] 13 Jan, 2014 [facility] [place] [facility] [address] [id number] [place] [address] 13 Jan, 2015 [facility] [place] [facility] [address] [id number] [place] [address] 13 Jan, 2014 [facility] [place] [facility] [address] [id number] [place] [address] 13 Jan, 2015 [facility] [place] [facility] [address] [id number] [place] [address] 10 Jan, 2014 [facility] [place] [facility] [address] [id number] [place] [address] 27 Dec, 2014 [facility] [place] [facility] [address] [address] [id number] [place] [address] 27 Dec, 2014 [facility] [place] [facility] [address] [id number] [place] [address] 26 Dec, 2014 [facility] [place] [facility] [address] [id number] [place] [address] Dec, [facility] [place] [facility] [address] [id number] [place] [address] Dec, [facility] [place] [facility] [address] [id number] [place] [address] Dec, [facility] [place] [facility] [address] [facility] [id number] [place] [address] Nov, [facility] [place] [facility] [address] [id number] [place] [address] Nov, [facility] [place] [facility] [address] [id number] [place] [address] Nov, [facility] [place] [facility] [address] [id number] [place] [address] Nov, [facility] [place] [facility] [address] [id number] [place] [address] Nov, [facility] [place] [facility] [address] [id number] [place] [address] Nov, [facility] [place] [facility] [address] [id number] [place] [address] Nov, [facility] [place] [facility] [address] [id number] [place] [address] Nov, [facility] [place] [facility] [address] [id number] [place] [address] Nov, [facility] [place] [facility] [address] [id number] [place] [address] Nov, [facility] [place] [facility] [address] [id number] [place] [address] Nov, [facility] [place] [facility] [address] [id number] [place] [address] Oct, [facility] [place] [facility] [address] [id number] [place] [address] Oct, [facility] [place] [facility] [address] [id number] [place] [address] Oct, [facility] [address] [id number] [place] [address] Oct, [facility] [place] [facility] [address] [id number] [place] [address] Oct, [facility] [address] [id number] [place] [address] Oct, [facility] [place] [facility] [address] [id number] [place] [address] Oct, [facility] [place] [facility] [address] [id number] [place] [address] Oct, [facility] [place] [facility] [address] [id number] [place] [address] Oct, [facility] [place] [facility] [address] [id number] [place] [address] Oct, [facility] [place] [facility] [address] [id number] [place] [address] Sep, [facility] [place] [facility] [address] [id number] [place] [address] Sep, [facility] [place] [facility] [address] [facility] [id number] [place] [address] Sep, [facility] [place] [facility] [address] [id number] [place] [address] Sep, [facility] [place] [facility] [address] [id number] [place] [address] Sep, [facility] [place] [facility] [address] [id number] [place] [address] Sep, [facility] [place] [facility] [address] [facility] [id number] [place] [address] Sep, [facility] [place] [facility] [address] [id number] [place] [address] Sep, [facility] [place] [facility] [address] [id number] [place] [address] Sep, [facility] [place] [facility] [address] [id number] [place] [address] 17 Sep, 2014 [facility] [place] [facility] [address] [id number] [place] [address] Sep, [facility] [place] [facility] [address] [id number] [place] [address] Sep, [facility] [place] [facility] [address] [id number] [place] [address] Sep, [facility] [place] [facility] [address] [id number] [place] [address] Aug, [facility] [place] [facility] [address] [id number] [place] [address] Aug, [facility] [place] [facility] [address] [id number] [place] [address] Aug, [facility] [place] [facility] [address] [id number] [place] [address] Aug, [facility] [place] [facility] [address] [id number] [place] [address] Aug, [facility] [place] [facility] [address] [id number] [place] [address] Aug, [facility] [place] [facility] [address] [id number] [place] [address] Aug, [facility] [place] [facility] [address] [id number] [place] [address] Aug, [facility] [place] [facility] [address] [id number] [place] [address] Aug, [facility] [place] [facility] [address] [id number] [place] [address] Aug, [facility] [place] [facility] [address] [id number] [place] [address] Aug, [facility] [place] [facility] [address] [id number] [place] [address] Aug, [facility] [place] [facility] [address] [id number] [place] [address] Aug, [facility] [place] [facility] [address] [id number] [place] [address] Aug, [facility] [place] [facility] [address] [id number] [place] [address] Aug, [facility] [place] [facility] [address] [id number] [place] [address] Aug, [facility] [place] [facility] [address] [id number] [place] [address] Aug, [facility] [place] [facility] [address] [id number] [place] [address] Aug, [facility] [place] [facility] [address] [id number] [place] [address] 30 Jul, 2013 [facility] [place] [facility] [address] [id number] [place] [address] 30 Jul, 2013 [facility] [place] [facility] [address] [id number] [place] [address] 24 Sep, 2013 [facility] [place] [facility] [address] [id number] [place] [address] 24 Sep, 2013 [facility] [place] [facility] [address] [id number] [place] [address] 23 Sep, 2013 [facility] [place] [facility] [address] [id number] [place] [address] 23 Sep, 2013 [facility] [place] [facility] [address] [id number] [place] [address] 15 Jul, 2013 [facility] [place] [facility] [address] [id number] [place] [address] 15 Jul, 2013 [facility] [place] [facility] [address] [facility] [id number] [place] [address] 15 Jul, 2014 [facility] [address] [facility] [id number] [place] [address] Jul, [facility] [address] [id number] [place] [address] Jul, [facility] [address] [facility] [id number] [place] [address] Jul, [facility] [address] [facility] [id number] [place] [address] Jul, [facility] [address] [id number] [address] Jul, IMMUNIZATIONS No Known Immunizations SOCIAL HISTORY Never Assessed REASON FOR VISIT EMR-[facility] [place] PLAN OF CARE VITAL SIGNS MEDICATIONS Unknown [...] History [place]-stent to LAD Surgical History cholecystectomy 1983 Surgical [...] Hospitalization History [facility]- Influenza illness, hyperglycemia 12/01/2017 Hospitalization History [facility]- High BS (Pt left AMA) 01/05/2018 Hospitalization History [facility]- DKA and UTI. Discharged 01/14/2018 01/13/2018 Hospitalization History [facility]- Nausea and Vomiting, cannot urinate 01/18/2018 Hospitalization History [facility]-DKA 10/06/48 Hospitalization History hyperglycemia 10/23/19-10/24/19 Hospitalization History ER- Hyperglycemia 12/2018
== END 2019-04-22 19:24 | disposition home or self-care (01) ==
LOC: EDUNIT# 15:27 → ER 15:28
DX: G43.909 Migraine, unspecified, not intractable, without status migrainosus (principal); G47.30 Sleep apnea, unspecified; I25.10 Atherosclerotic heart disease of native coronary artery without angina pectoris; E78.00 Pure hypercholesterolemia, unspecified; I10 Essential (primary) hypertension; K21.0 Gastro-esophageal reflux disease with esophagitis; K58.9 Irritable bowel syndrome, unspecified; F41.9 Anxiety disorder, unspecified; E11.40 Type 2 diabetes mellitus with diabetic neuropathy, unspecified; Z88.4 Allergy status to anesthetic agent; Z87.19 Personal history of other diseases of the digestive system; Z80.0 Family history of malignant neoplasm of digestive organs; Z80.1 Family history of malignant neoplasm of trachea, bronchus and lung; Z82.49 Family history of ischemic heart disease and other diseases of the circulatory system; Z87.09 Personal history of other diseases of the respiratory system; Z87.440 Personal history of urinary (tract) infections; Z86.718 Personal history of other venous thrombosis and embolism; Z88.8 Allergy status to other drugs, medicaments and biological substances; Z91.040 Latex allergy status; Z91.041 Radiographic dye allergy status; Z79.82 Long term (current) use of aspirin; Z79.4 Long term (current) use of insulin; Z87.891 Personal history of nicotine dependence; Z87.442 Personal history of urinary calculi; Z98.1 Arthrodesis status; Z95.5 Presence of coronary angioplasty implant and graft; Z98.890 Other specified postprocedural states
CPT/HCPCS: 70450; 96374; 96375

== ENCOUNTER → 2019-04-23 | Emergency (ER) | payer MEDICARE ==
[~2019-04-23] VITALS: Ht 152.4 cm; Wt 56.7 kg
[~2019-04-23] MED LIST changes: +HEParin (CENTRAL IV FLUSH) 500 UNIT/5 ML SYR ONE; +LORazepam INJ 2 MG/ML (ATIVAN) VIAL IM ONE; +LORazepam INJ 2 MG/ML (ATIVAN) VIAL IVP ONE; +NS IV 1000 ML 1,000 ML IV SCH; +PROCHLORPERAZINE 10 MG/2ML INJ (COMPAZINE) IM ONE; +PROMETHAZINE INJ 25 MG/ML (PHENERGAN) AMP IM ONE; +diphenhydrAMINE 50 MG/ML INJ (BENADRYL) IM ONE; +fentaNYL INJECTION 100 MCG/2 ML AMP IVP ONE
--- NOTE | 2019-04-23 14:55 | NUR ---
pt moaning with nausea and pain discomfort, medications given. Lights turned down for comfort
--- NOTE | 2019-04-23 15:20 | NUR ---
pt is dry heaving in room. Not vomiting at this time
--- NOTE | 2019-04-23 15:32 | NUR ---
pt still dry heaving. Provider notified.
[2019-04-23 16:22] LABS: BASOPHILS # (AUTO) 0.1 10^3/uL (0.0-0.1); BASOPHILS % (AUTO) 1 % (0-10); EOSINOPHILS # (AUTO) 0.3 10^3/uL (0.0-0.3); EOSINOPHILS % (AUTO) 2 % (0-10); HEMATOCRIT 38 % (35-52); HEMOGLOBIN 12.9 G/DL (11.5-16.0); LYMPHOCYTES # (AUTO) 4.2 X 10^3 (1.0-4.0); LYMPHOCYTES % (AUTO) 31 % (12-44); MEAN CORPUSCULAR HEMOGLOBIN 30 PG (25-34); MEAN CORPUSCULAR HGB CONC 34 G/DL (32-36); MEAN CORPUSCULAR VOLUME 87 FL (80-99); MEAN PLATELET VOLUME 10.1 FL (7.4-10.4); MONOCYTES # (AUTO) 0.8 X 10^3 (0.0-1.0); MONOCYTES % (AUTO) 6 % (0-12); NEUTROPHILS # (AUTO) 8.2 X 10^3 (1.8-7.8); NEUTROPHILS % (AUTO) 61 % (42-75); PLATELET COUNT 394 10^3/uL (130-400); WHITE BLOOD COUNT 13.5 10^3/uL (4.3-11.0)
[2019-04-23 16:41] LABS: ALBUMIN 4.1 GM/DL (3.2-4.5); BILIRUBIN,TOTAL 0.4 MG/DL (0.1-1.0); CREATININE SERUM 1.05 MG/DL (0.60-1.30); TOTAL PROTEIN 7.4 GM/DL (6.4-8.2)
--- NOTE | 2019-04-23 17:03 | NUR ---
pt is sitting up on the edge of the bed with no complaints. Pt is no longer dry heaving.
--- NOTE | 2019-04-23 17:05 | ED Headache ---
General Chief Complaint: Head/Cervical Problems Stated Complaint: MIGRAINE Nursing Triage Note: WAS SEEN YESTERDAY ET STATES SHE STILL HAS THE MIGRAINE/VOMITING ET CANT TAKE PERCOCET DUE TO THE VOMITING. Nursing Sepsis Screen: No Definite Risk Source: patient Exam Limitations: no limitations History of Present Illness Date Seen by Provider: Apr 23, 2019 Time Seen by Provider: 14:30 Initial Comments 58 year old female who presents to the emergency room with complains of migraine and vomiting for the past 4 days. She was seen in the emergency room yesterday for similar complaint. She reports that around midnight her pain came back. She is alert and oriented on arrival. Location: global Prior Headaches/Recent Trauma: no recent headache/trauma, frequent headaches Associated Symptoms: nausea/vomiting Allergies and Home Medications Allergies Coded Allergies: ketorolac (Verified Allergy, Severe, ANAPHYLAXIS, PT TAKES ASA AT HOME, 03/06/19) ondansetron (Verified Allergy, Intermediate, RASH, 03/06/19) RASH/ HIVES scopolamine (Verified Allergy, Mild, Rash, 03/21/19) exenatide (Verified Allergy, Unknown, NAUSEA, 03/06/19) NON STOP VOMITING latex (Verified Allergy, Unknown, RASH, 03/06/19) metoclopramide (Verified Allergy, Unknown, RESTLESS LEGS, 03/06/19) erythromycin base (Verified Adverse Reaction, Unknown, 03/21/19) Home Medications Aspirin 81 Mg Tablet.dr, 81 MG PO DAILY, (Reported) Atorvastatin Calcium 40 Mg Tablet, 40 MG PO HS, (Reported) LAST FILLED #30 18 Erythromycin Base 500 Mg Tablet, 500 MG PO Q8H Prescribed by: MCKENZIE CHAVEZ on 03/08/19 1213 Gabapentin 800 Mg Tablet, 1,600 MG PO HS, (Reported) TAKES 2 (800MG) TABLETS Gabapentin 800 Mg Tablet, 800 MG PO DAILY PRN for NERVE PAIN, (Reported) Insulin Detemir 100 Unit/1 Ml Insuln.pen, 30 UNIT SQ DAILY, (Reported) LAST FILLED AUGUST 2018 Insulin Lispro 100 Unit/1 Ml Insuln.pen, SQ TIDAC, (Reported) LAST FILLED MARCH 2018 Linagliptin 5 Mg Tablet, 5 MG PO DAILY, (Reported) Melatonin 5 Mg Capsule, 5 MG PO HS PRN for SLEEP, (Reported) Metoprolol Succinate 50 Mg Tab.er.24h, 50 MG PO DAILY Prescribed by: SHIRA BOOTHE on 01/20/19 1315 Mirtazapine 15 Mg Tablet, 15 MG PO HS, (Reported) Omeprazole 20 Mg Capsule.dr, 20 MG PO DAILY, (Reported) Oxycodone HCl 10 Mg Tablet, 10 MG PO DAILY, (Reported) Oxycodone HCl/Acetaminophen 1 Each Tablet, 1 TAB PO Q4H PRN for PAIN-MODERATE, (Reported) Patient Home Medication List Home Medication List Reviewed: Yes Review of Systems Review of Systems Constitutional: see HPI; No chills, No fever Gastrointestinal: see HPI, nausea, vomiting Psychiatric/Neurological: See HPI, Headache All Other Systems Reviewed Negative Unless Noted: Yes Past Mlywiff-Bkhogi-Awvanr Hx Past Med/Social Hx: Reviewed Nursing Past Med/Soc Hx Patient Social History Alcohol Use: Denies Use Number of Drinks Today: Alcohol Beverage of Choice: Wine Recreational Drug Use: No Type Used: Cigars, Cigarettes Former Smoker, Quit: Nov 10, 2017 2nd Hand Smoke Exposure: No Recent Foreign Travel: No Contact w/Someone Who Travel: No Recent Infectious Disease Expo: No Recent Hopitalizations: No Immunizations Up To Date Tetanus Booster (TDap): Unknown PED Vaccines UTD: No Date of Pneumonia Vaccine: Dec 12, 2013 Date of Influenza Vaccine: Sep 22, 2018 Seasonal Allergies Seasonal Allergies: Yes Past Medical History Surgeries: Yes (LITHOTRIPSY, FUSION/LAMINECTOMY X4, BMT, EGD with dilation of stricture) Cardiac, Coronary Stent, Gallbladder, Orthopedic Respiratory: Yes Chronic Bronchitis, Sleep Apnea Currently Using CPAP: Yes (ISN'T USING RIGHT NOW-ALLERGIES TOO BAD) Currently Using BIPAP: No Cardiac: Yes (CARDIAC STENT (AORTA) X 1; DVT'S IN ARMS) Chronic Edema/Swelling, Coronary Artery Disease, Deep Vein Thrombosis, High Cholesterol, Hypertension Neurological: Yes (NEUROPATHY IN HANDS AND FEET) Headaches /Migraines, Neuropathy 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 Disorders: No 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 Sexually Transmitted Disease: No HIV/AIDS: No Genitourinary: Yes Bladder Infection, Kidney Stones, Renal Failure Gastrointestinal: Yes (Gastritis, esophageal stricture, gastroparesis) Gastroesophageal Reflux, Diverticulosis, Esophagitis, Irritable Bowel Musculoskeletal: Yes Degenerate Disk Disease, Fibromyalgia, Chronic Back Pain Endocrine: Yes Diabetes, Insulin dep HEENT: Yes (GLASSES) Chronic Ear Infection Loss of Vision: Bilateral Hearing Impairment: Hard of Hearing Cancer: No Psychosocial: Yes Anxiety Integumentary: Yes Psoriasis Blood Disorders: No Adverse Reaction/Blood Tranf: No (HAS HAD BLOOD WITH NO REACTION) Family Medical History Reviewed Nursing Family Hx Cancer of mouth 19 FATHER ( of esophogeal cancer.) Cardiovascular disease 19 MOTHER G8 BROTHER Completed stroke 19 FATHER G8 BROTHER Diabetes mellitus G8 BROTHER FH: lung cancer 19 MOTHER Hypertension 19 FATHER Kidney disease 19 FATHER Myocardial infarction 19 MOTHER G8 BROTHER Respiratory disorder No Family History of: AIDS CAD Over 55 Years Old, CVA, Diabetes, GI Disease, Renal Disease Physical Exam Vital Signs Vital Signs - First Documented 04/23/19 14:11 Temp 98.0 Pulse 122 Resp 16 B/P (MAP) 136/85 (102) Pulse Ox 99 O2 Delivery Room Air Capillary Refill : Less Than 3 Seconds Height, Weight, BMI Height: 5'0" Weight: 125lbs. 6.0oz. 56.751209bo; 24.5 BMI Method:Stated General Appearance: WD/WN, no apparent distress Neck: non-tender, full range of motion, supple, normal inspection Cardiovascular: normal peripheral pulses, regular rate, rhythm, no edema, no gallop, no JVD, no murmur Respiratory: chest non-tender, lungs clear, normal breath sounds, no respiratory distress, no accessory muscle use Gastrointestinal: normal bowel sounds, non tender, soft, no organomegaly, no pulsatile mass Extremities: normal capillary refill Psychiatric: alert, oriented x 3 Crainal Nerves: normal hearing, normal speech Coordination/Gait: normal finger to nose, normal gait Skin: normal color, warm/dry Progress/Results/Core Measures Results/Orders Lab Results Laboratory Tests Test 04/23/19 14:38 04/23/19 16:14 Range/Units Glucometer 285 H 70-110 MG/DL White Blood Count 13.5 H 4.3-11.0 10^3/uL Red Blood Count 4.33 L 4.35-5.85 10^6/uL Hemoglobin 12.9 11.5-16.0 G/DL Hematocrit 38 35-52 % Mean Corpuscular Volume 87 80-99 FL Mean Corpuscular Hemoglobin 30 25-34 PG Mean Corpuscular Hemoglobin Concent 34 32-36 G/DL Red Cell Distribution Width 14.0 10.0-14.5 % Platelet Count 394 130-400 10^3/uL Mean Platelet Volume 10.1 7.4-10.4 FL Neutrophils (%) (Auto) 61 42-75 % Lymphocytes (%) (Auto) 31 12-44 % Monocytes (%) (Auto) 6 0-12 % Eosinophils (%) (Auto) 2 0-10 % Basophils (%) (Auto) 1 0-10 % Neutrophils # (Auto) 8.2 H 1.8-7.8 X 10^3 Lymphocytes # (Auto) 4.2 H 1.0-4.0 X 10^3 Monocytes # (Auto) 0.8 0.0-1.0 X 10^3 Eosinophils # (Auto) 0.3 0.0-0.3 10^3/uL Basophils # (Auto) 0.1 0.0-0.1 10^3/uL Sodium Level 136 135-145 MMOL/L Potassium Level 4.0 3.6-5.0 MMOL/L Chloride Level 104 98-107 MMOL/L Carbon Dioxide Level 20 L 21-32 MMOL/L Anion Gap 12 5-14 MMOL/L Blood Urea Nitrogen 15 7-18 MG/DL Creatinine 1.05 0.60-1.30 MG/DL Estimat Glomerular Filtration Rate 54 BUN/Creatinine Ratio 14 Glucose Level 267 H 70-105 MG/DL Calcium Level 10.0 8.5-10.1 MG/DL Corrected Calcium 9.9 8.5-10.1 MG/DL Total Bilirubin 0.4 0.1-1.0 MG/DL Aspartate Amino Transf (AST/SGOT) 9 5-34 U/L Alanine Aminotransferase (ALT/SGPT) 12 0-55 U/L Alkaline Phosphatase 87 40-136 U/L Total Protein 7.4 6.4-8.2 GM/DL Albumin 4.1 3.2-4.5 GM/DL My Orders Orders - BERNOT,ZELALEM Diphenhydramine Injection (Benadryl Inje (04/23/19 14:45) Promethazine Injection (Phenergan Injec (04/23/19 14:45) Prochlorperazine Injection (Compazine In (04/23/19 14:45) Cbc With Automated Diff (04/23/19 16:02) Comprehensive Metabolic Panel (04/23/19 16:02) Ed Iv/Invasive Line Start (04/23/19 16:02) Lorazepam Injection (Ativan Injection) (04/23/19 16:15) Ns Iv 1000 Ml (Sodium Chloride 0.9%) (04/23/19 16:15) Fentanyl Injection (Sublimaze Injection (04/23/19 16:45) Heparin (Central Iv Flush) (Heparin (Drake (04/23/19 17:18) Medications Given in ED Current Medications Medications Dose Ordered Sig/Jackie Route Start Time Stop Time Status Last Admin Dose Admin Diphenhydramine HCl 50 mg ONCE ONCE IM 04/23/19 14:45 04/23/19 14:46 DC 04/23/19 14:53 50 MG Fentanyl Citrate 50 mcg ONCE ONCE IVP 04/23/19 16:45 04/23/19 16:46 DC 04/23/19 16:45 50 MCG Lorazepam 1 mg ONCE ONCE IVP 04/23/19 16:15 04/23/19 16:16 DC 04/23/19 16:23 1 MG Prochlorperazine Edisylate 10 mg ONCE ONCE IM 04/23/19 14:45 04/23/19 14:46 DC 04/23/19 14:51 10 MG Promethazine HCl 25 mg ONCE ONCE IM 04/23/19 14:45 04/23/19 14:46 DC 04/23/19 14:54 25 MG Vital Signs/I&O 04/23/19 04/23/19 14:11 17:25 Temp 98.0 98.3 Pulse 122 79 Resp 16 18 B/P (MAP) 136/85 (102) 113/78 (90) Pulse Ox 99 100 O2 Delivery Room Air Blood Pressure Mean: 102 Progress Progress Note : Time: 17:04 Progress Note I have seen and evaluated the patient, I have informed her of her laboratory findings. She is no longer nauseated and her pain has improved. Prior to dis charge she asked "off the record could you prescribe me a few extra Percocet to get her through until her refill date next week", this request was declined. She agrees with plan of care, plans for discharge, return precautions were given. Departure Impression Primary Impression: Migraine Disposition: 01 HOME, SELF-CARE Condition: Stable/Unchanged Departure-Patient Inst. Decision time for Depature: 17:04 Referrals: [facility] (PCP/Family) Primary Care Physician Patient Instructions: Migraine Headache (DC) Add. Discharge Instructions: Resume your home medications as previously prescribed. Follow-up with psychiatric hospital tomorrow for a recheck. Call first thing tomorrow morning to schedule an appointment. Return back to the emergency room for worsening symptoms or concerns as needed. All discharge instructions reviewed with patient and/or family. Voiced understanding. ZELALEM EVANS Apr 23, 2019 17:04
[2019-04-23 17:25] VITALS: BP 113/78
== END | disposition home or self-care (01) ==
LOC: EDUNIT# 14:04 → ER 14:05
DX: G43.909 Migraine, unspecified, not intractable, without status migrainosus (principal); G47.30 Sleep apnea, unspecified; I25.10 Atherosclerotic heart disease of native coronary artery without angina pectoris; E78.00 Pure hypercholesterolemia, unspecified; I10 Essential (primary) hypertension; E11.40 Type 2 diabetes mellitus with diabetic neuropathy, unspecified; K21.0 Gastro-esophageal reflux disease with esophagitis; K58.9 Irritable bowel syndrome, unspecified; F41.9 Anxiety disorder, unspecified; Z87.19 Personal history of other diseases of the digestive system; Z87.442 Personal history of urinary calculi; Z80.0 Family history of malignant neoplasm of digestive organs; Z80.1 Family history of malignant neoplasm of trachea, bronchus and lung; Z82.49 Family history of ischemic heart disease and other diseases of the circulatory system; Z87.448 Personal history of other diseases of urinary system; Z86.718 Personal history of other venous thrombosis and embolism; Z88.4 Allergy status to anesthetic agent; Z88.8 Allergy status to other drugs, medicaments and biological substances; Z91.040 Latex allergy status; Z91.041 Radiographic dye allergy status; Z79.82 Long term (current) use of aspirin; Z79.4 Long term (current) use of insulin; Z87.891 Personal history of nicotine dependence; Z98.1 Arthrodesis status; Z98.890 Other specified postprocedural states; Z95.5 Presence of coronary angioplasty implant and graft
CPT/HCPCS: 36415; 80053; 82962; 85025; 96372; 96374; 96375

== ENCOUNTER 2019-04-25 18:07 | Observation (INO) | payer MEDICARE ==
[~2019-04-25] VITALS: Ht 154.9 cm; Wt 55.4 kg
[~2019-04-25 18:07] MED LIST changes: -HEParin (CENTRAL IV FLUSH) 500 UNIT/5 ML SYR ONE; -LORazepam INJ 2 MG/ML (ATIVAN) VIAL IM ONE; -LORazepam INJ 2 MG/ML (ATIVAN) VIAL IVP ONE; -NS IV 1000 ML 1,000 ML IV SCH; -PROCHLORPERAZINE 10 MG/2ML INJ (COMPAZINE) IM ONE; -PROMETHAZINE INJ 25 MG/ML (PHENERGAN) AMP IM ONE; -diphenhydrAMINE 50 MG/ML INJ (BENADRYL) IM ONE; -fentaNYL INJECTION 100 MCG/2 ML AMP IVP ONE
--- NOTE | 2019-04-25 20:05 | ED GU-Female ---
General Chief Complaint: - Urinary Stated Complaint: UNABLE TO URINATE Nursing Triage Note: THE PT IS AMBULATROY TO THE ROOM WITHOUT DIFFICULTY. NO DISTRESS IS SEEN ON ARRIVAL. LOC IS NORMAL FOR THE PT. HAS NOT URINATED SINCE 0700 TODAY. Nursing Sepsis Screen: No Definite Risk Source: patient Exam Limitations: no limitations History of Present Illness Date Seen by Provider: Apr 25, 2019 Time Seen by Provider: 20:04 Initial Comments To ER per private vehicle with reports that she's been unable to urinate since 7 AM this morning. States that she had her random drug screen as part of her pain management contract today, went to the clinic and was unable to provide a urine sample despite several hours of drinking water and coffee. They felt this was abnormal and she should be evaluated for it. Timing/Duration: just prior to arrival Severity/Quality: other Location: unknown Radiation: none Activities at Onset: none Associated Symptoms: denies symptoms Allergies and Home Medications Allergies Coded Allergies: ketorolac (Verified Allergy, Severe, ANAPHYLAXIS, PT TAKES ASA AT HOME, 03/06/19) ondansetron (Verified Allergy, Intermediate, RASH, 03/06/19) RASH/ HIVES scopolamine (Verified Allergy, Mild, Rash, 03/21/19) exenatide (Verified Allergy, Unknown, NAUSEA, 03/06/19) NON STOP VOMITING latex (Verified Allergy, Unknown, RASH, 03/06/19) metoclopramide (Verified Allergy, Unknown, RESTLESS LEGS, 03/06/19) erythromycin base (Verified Adverse Reaction, Unknown, 03/21/19) Home Medications Aspirin 81 Mg Tablet.dr, 81 MG PO DAILY, (Reported) Atorvastatin Calcium 40 Mg Tablet, 40 MG PO HS, (Reported) LAST FILLED #30 10-11-18 Erythromycin Base 500 Mg Tablet, 500 MG PO Q8H Prescribed by: MCKENZIE CHAVEZ on 03/08/19 1213 Gabapentin 800 Mg Tablet, 1,600 MG PO HS, (Reported) TAKES 2 (800MG) TABLETS Gabapentin 800 Mg Tablet, 800 MG PO DAILY PRN for NERVE PAIN, (Reported) Insulin Detemir 100 Unit/1 Ml Insuln.pen, 30 UNIT SQ DAILY, (Reported) LAST FILLED AUGUST 2018 Insulin Lispro 100 Unit/1 Ml Insuln.pen, SQ TIDAC, (Reported) LAST FILLED MARCH 2018 Linagliptin 5 Mg Tablet, 5 MG PO DAILY, (Reported) Melatonin 5 Mg Capsule, 5 MG PO HS PRN for SLEEP, (Reported) Metoprolol Succinate 50 Mg Tab.er.24h, 50 MG PO DAILY Prescribed by: SHIRA BOOTHE on 01/20/19 1315 Mirtazapine 15 Mg Tablet, 15 MG PO HS, (Reported) Omeprazole 20 Mg Capsule.dr, 20 MG PO DAILY, (Reported) Oxycodone HCl 10 Mg Tablet, 10 MG PO DAILY, (Reported) Oxycodone HCl/Acetaminophen 1 Each Tablet, 1 TAB PO Q4H PRN for PAIN-MODERATE, (Reported) Patient Home Medication List Home Medication List Reviewed: Yes Review of Systems Review of Systems Constitutional: see HPI EENTM: see HPI Respiratory: no symptoms reported Cardiovascular: no symptoms reported Genitourinary: no symptoms reported Musculoskeletal: no symptoms reported Skin: no symptoms reported Psychiatric/Neurological: No Symptoms Reported Past Fcpecgm-Yxnwha-Tavfzo Hx Patient Social History Alcohol Beverage of Choice: Wine Type Used: Cigars, Cigarettes Former Smoker, Quit: Nov 10, 2017 2nd Hand Smoke Exposure: No Recent Foreign Travel: No Contact w/Someone Who Travel: No Recent Infectious Disease Expo: No Recent Hopitalizations: No Immunizations Up To Date Tetanus Booster (TDap): Unknown PED Vaccines UTD: No Date of Pneumonia Vaccine: Dec 12, 2013 Date of Influenza Vaccine: Sep 22, 2018 Seasonal Allergies Seasonal Allergies: Yes Past Medical History Surgeries: Yes (LITHOTRIPSY, FUSION/LAMINECTOMY X4, BMT, EGD with dilation of stricture) Cardiac, Coronary Stent, Gallbladder, Orthopedic Respiratory: Yes Chronic Bronchitis, Sleep Apnea Currently Using CPAP: Yes (ISN'T USING RIGHT NOW-ALLERGIES TOO BAD) Currently Using BIPAP: No Cardiac: Yes (CARDIAC STENT (AORTA) X 1; DVT'S IN ARMS) Chronic Edema/Swelling, Coronary Artery Disease, Deep Vein Thrombosis, High Cholesterol, Hypertension Neurological: Yes (NEUROPATHY IN HANDS AND FEET) Headaches /Migraines, Neuropathy 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 Disorders: No 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 Sexually Transmitted Disease: No HIV/AIDS: No Genitourinary: Yes Bladder Infection, Kidney Stones, Renal Failure Gastrointestinal: Yes (Gastritis, esophageal stricture, gastroparesis) Gastroesophageal Reflux, Diverticulosis, Esophagitis, Irritable Bowel Musculoskeletal: Yes Degenerate Disk Disease, Fibromyalgia, Chronic Back Pain Endocrine: Yes Diabetes, Insulin dep HEENT: Yes (GLASSES) Chronic Ear Infection Loss of Vision: Bilateral Hearing Impairment: Hard of Hearing Cancer: No Psychosocial: Yes Anxiety Integumentary: Yes Psoriasis Blood Disorders: No Adverse Reaction/Blood Tranf: No (HAS HAD BLOOD WITH NO REACTION) Family Medical History Cancer of mouth 19 FATHER ( of esophogeal cancer.) Cardiovascular disease 19 MOTHER G8 BROTHER Completed stroke 19 FATHER G8 BROTHER Diabetes mellitus G8 BROTHER FH: lung cancer 19 MOTHER Hypertension 19 FATHER Kidney disease 19 FATHER Myocardial infarction 19 MOTHER G8 BROTHER Respiratory disorder No Family History of: AIDS CAD Over 55 Years Old, CVA, Diabetes, GI Disease, Renal Disease Physical Exam Vital Signs Vital Signs - First Documented 04/25/19 18:21 Temp 98.4 Pulse 82 Resp 16 B/P (MAP) 111/74 (86) Capillary Refill : Less Than 3 Seconds Height, Weight, BMI Height: 5'4.00" Weight: 125lbs. 6.0oz. 56.649923fn; 24.5 BMI Method:Estimated General Appearance: WD/WN, no apparent distress HEENT: PERRL/EOMI, normal ENT inspection Neck: non-tender, full range of motion Respiratory: no respiratory distress, no accessory muscle use Extremities: normal range of motion, non-tender Neurologic/Psychiatric: alert, normal mood/affect, oriented x 3 Skin: normal color, warm/dry Progress/Results/Core Measures Suspected Sepsis Recent Fever Within 48 Hours: No Infection Criteria Present: None New/Unexplained Altered Menta: No Sepsis Screen: No Definite Risk SIRS Temperature:98.4 Pulse: 82 Respiratory Rate: 16 Laboratory Tests 04/25/19 20:20: White Blood Count 16.9H Blood Pressure 111 /74 Mean: 86 Laboratory Tests 04/25/19 20:20: Creatinine 1.68H, Platelet Count 288, Total Bilirubin 0.5 Results/Orders Lab Results Laboratory Tests Test 04/25/19 20:20 04/25/19 21:10 Range/Units White Blood Count 16.9 H 4.3-11.0 10^3/uL Red Blood Count 3.71 L 4.35-5.85 10^6/uL Hemoglobin 11.1 L 11.5-16.0 G/DL Hematocrit 32 L 35-52 % Mean Corpuscular Volume 85 80-99 FL Mean Corpuscular Hemoglobin 30 25-34 PG Mean Corpuscular Hemoglobin Concent 35 32-36 G/DL Red Cell Distribution Width 13.2 10.0-14.5 % Platelet Count 288 130-400 10^3/uL Mean Platelet Volume 10.0 7.4-10.4 FL Neutrophils (%) (Auto) 49 42-75 % Lymphocytes (%) (Auto) 42 12-44 % Monocytes (%) (Auto) 5 0-12 % Eosinophils (%) (Auto) 4 0-10 % Basophils (%) (Auto) 0 0-10 % Neutrophils # (Auto) 8.3 H 1.8-7.8 X 10^3 Lymphocytes # (Auto) 7.1 H 1.0-4.0 X 10^3 Monocytes # (Auto) 0.9 0.0-1.0 X 10^3 Eosinophils # (Auto) 0.6 H 0.0-0.3 10^3/uL Basophils # (Auto) 0.1 0.0-0.1 10^3/uL Neutrophils % (Manual) 45 % Lymphocytes % (Manual) 46 % Monocytes % (Manual) 6 % Eosinophils % (Manual) 2 % Basophils % (Manual) 1 % Blood Morphology Comment NORMAL Sodium Level 116 *L 135-145 MMOL/L Potassium Level 3.8 3.6-5.0 MMOL/L Chloride Level 87 L 98-107 MMOL/L Carbon Dioxide Level 17 L 21-32 MMOL/L Anion Gap 12 5-14 MMOL/L Blood Urea Nitrogen 27 H 7-18 MG/DL Creatinine 1.68 H 0.60-1.30 MG/DL Estimat Glomerular Filtration Rate 31 BUN/Creatinine Ratio 16 Glucose Level 256 H 70-105 MG/DL Calcium Level 8.4 L 8.5-10.1 MG/DL Corrected Calcium 8.6 8.5-10.1 MG/DL Total Bilirubin 0.5 0.1-1.0 MG/DL Aspartate Amino Transf (AST/SGOT) 10 5-34 U/L Alanine Aminotransferase (ALT/SGPT) 10 0-55 U/L Alkaline Phosphatase 68 40-136 U/L Total Protein 6.5 6.4-8.2 GM/DL Albumin 3.7 3.2-4.5 GM/DL My Orders Orders - JR MARIE APRN Drug Screen Stat (Urine) (6/4/19 18:09) Ua Culture If Indicated (04/25/19 18:09) Cbc With Automated Diff (04/25/19 18:09) Comprehensive Metabolic Panel (04/25/19 18:09) Bladder Scan (04/25/19 18:09) Lactated Ringers (Lr 1000 Ml Iv Solution (04/25/19 20:15) Manual Differential (04/25/19 20:20) Vital Signs/I&O 04/25/19 18:21 Temp 98.4 Pulse 82 Resp 16 B/P (MAP) 111/74 (86) Capillary Refill : Less Than 3 Seconds Blood Pressure Mean: 86 Departure Communication (Admissions) Time/Spoke to Admitting Phy: 21:[address] Berry who is on-call for [facility]. We will admit, limit her fluid by mouth to 800 cc/24 hrs, replace fluid peripherally with normal saline at 100 cc an hour. Discussed this plan with the patient was alert and oriented degrees. On arrival the bladder scan shows 400 cc urine in the bladder. The catheter was started. Impression Primary Impression: Hyponatremia Disposition: 01 HOME, SELF-CARE Condition: Stable Admissions Decision to Admit Reason: Admit from ER (General) Decision to Admit/Date: Apr 25, 2019 Time/Decision to Admit Time: 21:23 Departure-Patient Inst. Referrals: [facility] (PCP/Family) Primary Care Physician JR MARIE APRN Apr 25, 2019 20:05
[2019-04-25] MEDS ORDERED: LACTATED RINGERS 1,000 ML IV SCH (20:15)
[2019-04-25 20:24] LABS: BASOPHILS # (AUTO) 0.1 10^3/uL (0.0-0.1); BASOPHILS % (AUTO) 0 % (0-10); EOSINOPHILS # (AUTO) 0.6 10^3/uL (0.0-0.3); EOSINOPHILS % (AUTO) 4 % (0-10); HEMATOCRIT 32 % (35-52); HEMOGLOBIN 11.1 G/DL (11.5-16.0); LYMPHOCYTES # (AUTO) 7.1 X 10^3 (1.0-4.0); LYMPHOCYTES % (AUTO) 42 % (12-44); MEAN CORPUSCULAR HEMOGLOBIN 30 PG (25-34); MEAN CORPUSCULAR HGB CONC 35 G/DL (32-36); MEAN CORPUSCULAR VOLUME 85 FL (80-99); MONOCYTES # (AUTO) 0.9 X 10^3 (0.0-1.0); MONOCYTES % (AUTO) 5 % (0-12); NEUTROPHILS # (AUTO) 8.3 X 10^3 (1.8-7.8); NEUTROPHILS % (AUTO) 49 % (42-75); PLATELET COUNT 288 10^3/uL (130-400); RED CELL DISTRIBUTION WIDTH 13.2 % (10.0-14.5); WHITE BLOOD COUNT 16.9 10^3/uL (4.3-11.0)
[2019-04-25 20:44] LABS: BASOPHILS % (MANUAL) 1 %; EOSINOPHILS % (MANUAL) 2 %; LYMPHOCYTES % (MANUAL) 46 %; MONOCYTES % (MANUAL) 6 %; NEUTROPHILS % (MANUAL) 45 %; RBC MORPH NORMAL
[2019-04-25 20:45] LABS: ALBUMIN 3.7 GM/DL (3.2-4.5); BILIRUBIN,TOTAL 0.5 MG/DL (0.1-1.0); CALCIUM 8.4 MG/DL (8.5-10.1); CREATININE SERUM 1.68 MG/DL (0.60-1.30); POTASSIUM 3.8 MMOL/L (3.6-5.0); TOTAL PROTEIN 6.5 GM/DL (6.4-8.2)
[2019-04-25 21:16] LABS: BILIRUBIN,URINE NEGATIVE (NEGATIVE); CLARITY,URINE CLEAR; COLOR,URINE YELLOW; GLUCOSE, URINE (UA) 2+ (NEGATIVE); KETONES,URINE NEGATIVE (NEGATIVE); LEUKOCYTE ESTERASE ,URINE NEGATIVE (NEGATIVE); NITRITE,URINE NEGATIVE (NEGATIVE); PH,URINE 5 (5-9); PROTEIN,URINE NEGATIVE (NEGATIVE); UROBILINOGEN,URINE NORMAL (NORMAL)
[2019-04-25 21:23] LABS: BACTERIA,URINE LARGE /HPF; SQUAMOUS EPITHELIAL CELL,UR 0-2 /HPF
[2019-04-25 21:26] LABS: AMPHETAMINE SCREEN, URINE NEGATIVE (NEGATIVE); BARBITURATE SCREEN URINE NEGATIVE (NEGATIVE); BENZODIAZEPINES SCREEN URINE NEGATIVE (NEGATIVE); CANNABINOID SCREEN, URINE NEGATIVE (NEGATIVE); COCAINE SCREEN URINE NEGATIVE (NEGATIVE); METHADONE STAT NEGATIVE (NEGATIVE); METHAMPHETAMINE SCREEN URINE S NEGATIVE (NEGATIVE); OPIATE SCREEN URINE NEGATIVE (NEGATIVE); TRICYCLIC ANTIDEPRESSANTS SCRE NEGATIVE (NEGATIVE)
[2019-04-25 21:27] LABS: OXYCODONE STAT POSITIVE (NEGATIVE); PROPOXYPHENE STAT NEGATIVE (NEGATIVE)
--- NOTE | 2019-04-25 22:10 | NUR ---
VALENTE HARPER admitted to room 417-1, with an admitting diagnosis of HYPONATREMIA, on 04/25/19 from ED via WHEELCHAIR, accompanied by STAFF.VALENTE HARPER introduced to surroundings, call light, bed controls, phone, TV, temperature control, lights, meal times, smoking policy, visitor policy, side rail policy, bathrooms and showers. Patient Rights given to patient in the handbook. VALENTE HARPER verbalizes understanding that [facility] is not responsible for the loss or damage to any personal effects or valuables that are kept in the patients posession during their hospitalization. VALENTE HARPER verbalizes understanding of Interdisciplinary Patient Education. Patient and/or family were informed about the Rapid Response Team and its purpose.
[2019-04-25 22:47] VITALS: BP 144/90
[2019-04-25] MEDS ORDERED: NS IV 1000 ML 1,000 ML IV SCH (23:30)
[2019-04-25] MEDS ORDERED: LORazepam INJ 2 MG/ML (ATIVAN) VIAL IV PRN (23:30)
[2019-04-26] VITALS: BP 128/68
[2019-04-26 04:48] VITALS: BP 139/65
[2019-04-26 06:18] LABS: BASOPHILS # (AUTO) 0.1 10^3/uL (0.0-0.1); BASOPHILS % (AUTO) 1 % (0-10); EOSINOPHILS # (AUTO) 0.5 10^3/uL (0.0-0.3); EOSINOPHILS % (AUTO) 5 % (0-10); HEMATOCRIT 33 % (35-52); HEMOGLOBIN 11.4 G/DL (11.5-16.0); LYMPHOCYTES # (AUTO) 4.3 X 10^3 (1.0-4.0); LYMPHOCYTES % (AUTO) 42 % (12-44); MEAN CORPUSCULAR HEMOGLOBIN 30 PG (25-34); MEAN CORPUSCULAR HGB CONC 35 G/DL (32-36); MEAN CORPUSCULAR VOLUME 86 FL (80-99); MEAN PLATELET VOLUME 10.7 FL (7.4-10.4); MONOCYTES # (AUTO) 0.5 X 10^3 (0.0-1.0); MONOCYTES % (AUTO) 5 % (0-12); NEUTROPHILS # (AUTO) 4.8 X 10^3 (1.8-7.8); NEUTROPHILS % (AUTO) 47 % (42-75); PLATELET COUNT 262 10^3/uL (130-400); RED CELL DISTRIBUTION WIDTH 13.2 % (10.0-14.5); WHITE BLOOD COUNT 10.2 10^3/uL (4.3-11.0)
[2019-04-26 06:35] LABS: ALBUMIN 3.4 GM/DL (3.2-4.5); BILIRUBIN,TOTAL 0.3 MG/DL (0.1-1.0); CALCIUM 8.7 MG/DL (8.5-10.1); CREATININE SERUM 1.53 MG/DL (0.60-1.30); POTASSIUM 4.6 MMOL/L (3.6-5.0); TOTAL PROTEIN 6.1 GM/DL (6.4-8.2)
[2019-04-26] MEDS ORDERED: inSUlin ASPART (NovoLOG) 1 UNIT/0.01 ML (CHARGE PER UNIT) ONE (07:00)
[2019-04-26] MEDS ORDERED: inSUlin ASPART (NovoLOG) 1 UNIT/0.01 ML (CHARGE PER UNIT) SC NR ×2 (07:10→16:33)
[2019-04-26 08:08] VITALS: BP 110/55
[2019-04-26] MEDS ORDERED: METO-370 PO (09:51)
--- NOTE | 2019-04-26 10:00 | NUR ---
SPOKE WITH THE PATIENT ABOUT HER MEDICATIONS. WE WENT OVER THE EXT MED HX AND SHE VERIFIED HOW SHE TAKES HER MEDICATIONS. SHE ADMITS SHE IS PAST DUE ON REFILLS FOR A FEW AND SHE WILL FILL THEM NEXT WEEK WHEN SHE GETS PAID. SHE ALSO STATES SHE HAS NOT BEEN TAKING THEM REGULARLY THE PAST FEW DAYS DUE TO NOT FEELING WELL AND HAVING AND UPSET STOMACH. SHE STATES SHE TAKES HER INSULIN AND HER PAIN MEDICATIONS REGULARLY HOWEVER HER INSULIN HAS NOT BEEN FILLED SINCE DEC ON THE LEVEMIR AND MARCH 2018 ON THE HUMALOG. SHE STATES SHE DOES NOT GET SAMPLES THAT SHE GETS IT FROM THE [facility].
--- NOTE | 2019-04-26 10:08 | History & Physical-Hospitalist ---
History of Present Illness HPI/Chief Complaint CC: Severe Hyponatremia HPI: This is a 59yoWF known to me from multiple hospitalizations with a history of type I diabetes with frequent DKA who presented after going to the pain management clinic in [place] could not produce a urine sample for drug screen monitoring so she drank a lot of water she began feeling weak she couldn't urinate so she went to the ER mo catheter was placed 500cc removed and noted sodium level 116. Pt has been on normal saline at 60cc an hour and overall feels much better but sugar is 669 bicarb 20 which is normal so will hep-lock fluid give insulin for hyperglycemia restart home meds and monitor closely. Source: patient Exam Limitations: no limitations Date Seen 04/26/19 Time Seen by a Provider: 09:00 Attending Physician Jazmine Melvin DO [facility] Referring Physician Date of Admission Apr 25, 2019 at 20:55 Home Medications & Allergies Home Medications Reviewed patient Home Medication Reconciliation performed by pharmacy medication reconciliations civil technician and/or nursing. Patients Allergies have been reviewed. Allergies Allergies Coded Allergies ketorolac (Verified Allergy, Severe, ANAPHYLAXIS, PT TAKES ASA AT HOME, 03/06/19) ondansetron (Verified Allergy, Intermediate, RASH, 03/06/19) RASH/ HIVES scopolamine (Verified Allergy, Mild, Rash, 03/21/19) exenatide (Verified Allergy, Unknown, NAUSEA, 03/06/19) NON STOP VOMITING latex (Verified Allergy, Unknown, RASH, 03/06/19) metoclopramide (Verified Allergy, Unknown, RESTLESS LEGS, 03/06/19) erythromycin base (Verified Adverse Reaction, Unknown, 03/21/19) Past Ikkhfnj-Omrtus-Bclowz Hx Past Med/Social Hx: Reviewed Nursing Past Med/Soc Hx, Reviewed and Corrections made Patient Social History Marrital Status: single Employed/Student: unemployed Alcohol Use: Denies Use Number of Drinks Today: Alcohol Beverage of Choice: Wine Recreational Drug Use: No Smoking Status: Former Smoker Former Smoker, Quit: Nov 10, 2017 Type Used: Cigars, Cigarettes 2nd Hand Smoke Exposure: No Recent Foreign Travel: No Contact w/other who traveled: No Recent Hopitalizations: No Recent Infectious Disease Expo: No Immunizations Up To Date Tetanus Booster (TDap): Unknown Pediatric: No Date of Pneumonia Vaccine: Nov 22, 2018 Date of Influenza Vaccine: Sep 22, 2018 Seasonal Allergies Seasonal Allergies: Yes Past Medical History Surgeries: Cardiac, Coronary Stent, Gallbladder, Orthopedic Respiratory: Asthma Currently Using CPAP: Yes (ISN'T USING RIGHT NOW-ALLERGIES TOO BAD) Currently Using BIPAP: No Cardiac: Chronic Edema/Swelling, Coronary Artery Disease, Deep Vein Thrombosis, High Cholesterol, Hypertension Neurological: Headaches /Migraines, Neuropathy 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: No Sexually Transmitted Disease: No HIV/AIDS: No 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 Disorders: Denies Menopausal Genitourinary: Bladder Infection, Kidney Stones, Renal Failure Gastrointestinal: Gastroesophageal Reflux, Diverticulosis, Esophagitis, Irritable Bowel Musculoskeletal: Degenerate Disk Disease, Fibromyalgia, Chronic Back Pain Endocrine: Diabetes, Insulin dep HEENT: Chronic Ear Infection Loss of Vision: Bilateral Hearing Impairment: Hard of Hearing Psychosocial: Anxiety Skin/Integumentary: Psoriasis History of Blood Disorders: No Adverse Reaction to Blood Green: No (HAS HAD BLOOD WITH NO REACTION) Family History Cancer of mouth 19 FATHER ( of esophogeal cancer.) Cardiovascular disease 19 MOTHER G8 BROTHER Completed stroke 19 FATHER G8 BROTHER Diabetes mellitus G8 BROTHER FH: lung cancer 19 MOTHER Hypertension 19 FATHER Kidney disease 19 FATHER Myocardial infarction 19 MOTHER G8 BROTHER Respiratory disorder No Family History of: AIDS CAD Over 55 Years Old, CVA, Diabetes, GI Disease, Renal Disease Review of Systems Constitutional: see HPI, weakness EENTM: no symptoms reported Respiratory: no symptoms reported Cardiovascular: no symptoms reported Gastrointestinal: no symptoms reported Genitourinary: no symptoms reported Musculoskeletal: no symptoms reported Skin: no symptoms reported Psychiatric/Neurological: No Symptoms Reported All Other Systems Reviewed Negative Unless Noted: Yes Physical Exam Physical Exam Vital Signs Vital Signs - First Documented 04/25/19 04/25/19 04/26/19 18:21 22:16 08:08 Temp 98.4 Pulse 82 Resp 16 B/P (MAP) 111/74 (86) Pulse Ox 98 O2 Delivery Room Air O2 Flow Rate 0.00 Capillary Refill : Less Than 3 Seconds Height, Weight, BMI Height: 5'1.00" Weight: 122lbs. 1.0oz. 55.634336lm; 23.1 BMI Method:Estimated General Appearance: No Apparent Distress, WD/WN, Chronically ill, Obese Eyes: Right Eye Normal Inspection, Right Eye PERRL HEENT: PERRL/EOMI, TMs Normal, Normal ENT Inspection, Pharynx Normal, Moist Mucous Membranes Neck: Full Range of Motion, Normal Inspection, Non Tender Respiratory: Chest Non Tender, Lungs Clear, Normal Breath Sounds, No Accessory Muscle Use, No Respiratory Distress Cardiovascular: Regular Rate, Rhythm, No Edema, No Gallop, No JVD, No Murmur, Normal Peripheral Pulses Gastrointestinal: Normal Bowel Sounds, No Organomegaly, No Pulsatile Mass, Non Tender, Soft Back: Normal Inspection, No CVA Tenderness, No Vertebral Tenderness Extremity: Normal Capillary Refill, Normal Inspection, Normal Range of Motion, Non Tender, No Calf Tenderness, No Pedal Edema Neurologic/Psychiatric: Alert, Oriented x3, No Motor/Sensory Deficits, Normal Mood/Affect Skin: Normal Color, Warm/Dry Lymphatic: No Adenopathy Results Results/Procedures Labs Laboratory Tests 04/25/19 20:20 04/26/19 06:07 Patient resulted labs reviewed. Assessment/Plan Admission Diagnosis Assessment: Hyponatremia severe Psychogenic polydipsia Chronic pain DM OOC Plan: Fluid restrict Insulin Home meds ALVIN Marie Admission Status: Observation Diagnosis/Problems Diagnosis/Problems (1) Hyponatremia Status: Acute (2) Hyperglycemia Status: Acute Clinical Quality Measures DVT/VTE Risk/Contraindication: Risk Factor Score Per Nursin RFS Level Per Nursing on Admit: 4+=Very High JAZMINE MELVIN DO Apr 26, 2019 10:08
[2019-04-26] MEDS ORDERED: CATHETER FLUSH 10 ML SYR IV PRN (10:30)
[2019-04-26] MEDS ORDERED: GABAPENTIN 400 MG (NEURONTIN) CAP PO PRN (10:30)
[2019-04-26] MEDS: PANTOPRAZOLE 20 MG TABLET (PROTONIX) PO SCH (12:01)
[2019-04-26] MEDS: oxyCODONE ER 10 MG (OxyCONTIN CR) TAB PO SCH ×2 (12:02→16:50)
[2019-04-26] MEDS: GABAPENTIN 400 MG (NEURONTIN) CAP PO SCH ×2 (12:05→21:06)
[2019-04-26 12:18] VITALS: BP 129/60
[2019-04-26] MEDS: oxyCODONE/APAP 10/325MG (PERCOCET 10) TABLET PO PRN ×2 (12:32→21:16)
--- NOTE | 2019-04-26 16:10 | NUR ---
DR MELVIN NOTIFIED OF PT BLOOD SUGAR 583. ORDER RECEIVED TO GIVE 25 UNITS NOVOLOG AT THIS TIME. PT NOTIFIED.
[2019-04-26 16:19] VITALS: BP 114/58
[2019-04-26] MEDS: inSUlin ASPART (NovoLOG) 1 UNIT/0.01 ML (CHARGE PER UNIT) SC SCH (18:24)
[2019-04-26 20:09] VITALS: BP 100/58
[2019-04-26] MEDS ORDERED: MIRTAZAPINE 15 MG (REMERON) TAB PO SCH (21:00)
[2019-04-26] MEDS ORDERED: ATORVASTATIN 40 MG (LIPITOR) TABLET PO SCH (21:00)
[2019-04-26] MEDS ORDERED: MELATONIN 3 MG TABLET PO PRN (21:00)
[2019-04-27] MEDS ORDERED: diphenhydrAMINE 25 MG TAB (BENADRYL) PO PRN
[2019-04-27 00:14] VITALS: BP 110/56
[2019-04-27] MEDS: oxyCODONE/APAP 10/325MG (PERCOCET 10) TABLET PO PRN ×2 (01:45→08:31)
[2019-04-27 04:51] VITALS: BP 111/56
[2019-04-27 05:12] LABS: BASOPHILS # (AUTO) 0.1 10^3/uL (0.0-0.1); BASOPHILS % (AUTO) 1 % (0-10); EOSINOPHILS # (AUTO) 0.5 10^3/uL (0.0-0.3); EOSINOPHILS % (AUTO) 5 % (0-10); HEMATOCRIT 31 % (35-52); HEMOGLOBIN 10.3 G/DL (11.5-16.0); LYMPHOCYTES # (AUTO) 4.8 X 10^3 (1.0-4.0); LYMPHOCYTES % (AUTO) 45 % (12-44); MEAN CORPUSCULAR HEMOGLOBIN 29 PG (25-34); MEAN CORPUSCULAR HGB CONC 33 G/DL (32-36); MEAN CORPUSCULAR VOLUME 89 FL (80-99); MEAN PLATELET VOLUME 10.8 FL (7.4-10.4); MONOCYTES # (AUTO) 0.7 X 10^3 (0.0-1.0); MONOCYTES % (AUTO) 6 % (0-12); NEUTROPHILS # (AUTO) 4.6 X 10^3 (1.8-7.8); NEUTROPHILS % (AUTO) 43 % (42-75); PLATELET COUNT 98 10^3/uL (130-400); RED CELL DISTRIBUTION WIDTH 13.9 % (10.0-14.5); WHITE BLOOD COUNT 10.7 10^3/uL (4.3-11.0)
[2019-04-27 05:54] LABS: POTASSIUM 4.2 MMOL/L (3.6-5.0)
[2019-04-27 05:55] LABS: ALBUMIN 3.5 GM/DL (3.2-4.5); BILIRUBIN,TOTAL 0.2 MG/DL (0.1-1.0); CALCIUM 8.9 MG/DL (8.5-10.1); CREATININE SERUM 1.3 MG/DL (0.60-1.30); TOTAL PROTEIN 6.3 GM/DL (6.4-8.2)
[2019-04-27] MEDS: inSUlin ASPART (NovoLOG) 1 UNIT/0.01 ML (CHARGE PER UNIT) SC SCH ×2 (06:25→11:34)
[2019-04-27 08:13] VITALS: BP 119/82
--- NOTE | 2019-04-27 08:25 | NUR ---
PERCOCET 10 PO FOR C/O BACKPAIN.
[2019-04-27] MEDS: PANTOPRAZOLE 20 MG TABLET (PROTONIX) PO SCH (08:32)
[2019-04-27] MEDS ORDERED: LINAGLIPTIN (TRADJENTA) 5 MG TABLET PO SCH (09:00)
[2019-04-27] MEDS ORDERED: ASPIRIN E.C. 81 MG (ECOTRIN) TAB PO SCH (09:00)
--- NOTE | 2019-04-27 09:00 | NUR ---
DR. MELVIN HERE AND NOTIFIED TELEMETRY STRIP FROM THIS AM SHOWS AFIB. PREVIOUS STRIPS SR. STAT EKG ORDERED AND DR. BARILLAS NOTIFIED OF CONSULT.
--- NOTE | 2019-04-27 09:35 | NUR ---
TELE STRIP AND EKG TO DR. MELVIN. REPORTS SR. DR. BARILLAS CONSULT DC'D PER ORDER.
--- NOTE | 2019-04-27 10:52 | Discharge Summary-Hospitalist ---
Diagnosis/Chief Complaint Date of Admission Apr 25, 2019 at 20:55 Date of Discharge Discharge Date: Apr 27, 2019 Admission Diagnosis Assessment: Hyponatremia severe Psychogenic polydipsia Chronic pain DM OOC Plan: Fluid restrict Insulin Home meds DC Thur Discharge Diagnosis (1) Hyponatremia Status: Acute (2) Hyperglycemia Status: Acute Discharge Summary Discharge Physical Exam Allergies: Coded Allergies: ketorolac (Verified Allergy, Severe, ANAPHYLAXIS, PT TAKES ASA AT HOME, 03/06/19) ondansetron (Verified Allergy, Intermediate, RASH, 03/06/19) RASH/ HIVES scopolamine (Verified Allergy, Mild, Rash, 03/21/19) exenatide (Verified Allergy, Unknown, NAUSEA, 03/06/19) NON STOP VOMITING latex (Verified Allergy, Unknown, RASH, 03/06/19) metoclopramide (Verified Allergy, Unknown, RESTLESS LEGS, 03/06/19) erythromycin base (Verified Adverse Reaction, Unknown, 03/21/19) Vitals & I&Os Vital Signs Date Time Temp Pulse Resp B/P (MAP) Pulse Ox O2 Delivery O2 Flow Rate FiO2 04/27/19 08:13 98.5 80 19 119/82 (94) 98 Room Air 0.00 General Appearance: No Apparent Distress, WD/WN Respiratory: Chest Non Tender, Lungs Clear, Normal Breath Sounds, No Accessory Muscle Use, No Respiratory Distress Cardiovascular: Regular Rate, Rhythm, No Edema, No Gallop, No JVD, No Murmur, Normal Peripheral Pulses Neurologic/Psychiatric: Alert, Oriented x3, No Motor/Sensory Deficits, Normal Mood/Affect Hospital Course Was the Problem List Reviewed?: Yes Patient had a brief course after admitted for sodium level 116 due to consuming a lot of water for UDS in [place]. Patient did well and was fluid restricted and maintained on gentle NS IVF. Home meds restarted. Patient was deemed stable for DC and sodium level was nl. Labs (last 24 hrs) Laboratory Tests 04/26/19 21:08: Glucometer 115H 04/27/19 05:00: White Blood Count 10.7, Red Blood Count 3.50L, Hemoglobin 10.3L, Hematocrit 31L, Mean Corpuscular Volume 89, Mean Corpuscular Hemoglobin 29, Mean Corpuscular Hemoglobin Concent 33, Red Cell Distribution Width 13.9, Platelet Count 98L, Mean Platelet Volume 10.8H, Neutrophils (%) (Auto) 43, Lymphocytes (%) (Auto) 45H, Monocytes (%) (Auto) 6, Eosinophils (%) (Auto) 5, Basophils (%) (Auto) 1, Neutrophils # (Auto) 4.6, Lymphocytes # (Auto) 4.8H, Monocytes # (Auto) 0.7, Eosinophils # (Auto) 0.5H, Basophils # (Auto) 0.1, Sodium Level 133L, Potassium Level 4.2, Chloride Level 104, Carbon Dioxide Level 17L, Anion Gap 12, Blood Urea Nitrogen 40H, Creatinine 1.30, Estimat Glomerular Filtration Rate 42, BUN/Creatinine Ratio 31, Glucose Level 305H, Calcium Level 8.9, Corrected Calcium 9.3, Total Bilirubin 0.2, Aspartate Amino Transf (AST/SGOT) 8, Alanine Aminotransferase (ALT/SGPT) 8, Alkaline Phosphatase 72, Total Protein 6.3L, Albumin 3.5 04/27/19 10:58: Glucometer 71 Microbiology 04/25/19 Urine Culture - Final, Complete NO GROWTH Patient resulted labs reviewed. Pending Labs Laboratory Tests 04/27/19 10:58: Glucometer 71 Discussion & Recommendations Discharge Planning: <30 minutes discharge planning Discharge Home Medications: Active Scripts Active Levemir Flextouch (Insulin Detemir) 100 Unit/1 Ml Insuln.pen 20 Unit SQ DAILY 30 Days Reported Melatonin 5 Mg Capsule 5 Mg PO HS PRN Humalog Kwikpen (Insulin Lispro) 100 Unit/1 Ml Insuln.pen SQ TIDAC LAST FILLED MARCH 2018 Mirtazapine 15 Mg Tablet 15 Mg PO HS Omeprazole 20 Mg Capsule. 20 Mg PO DAILY Gabapentin 800 Mg Tablet 800 Mg PO DAILY PRN Oxycodone HCl 10 Mg Tablet 10 Mg PO DAILY Gabapentin 800 Mg Tablet 1,600 Mg PO HS TAKES 2 (800MG) TABLETS Tradjenta (Linagliptin) 5 Mg Tablet 5 Mg PO DAILY LAST FILLED #30 02-01-19 Atorvastatin Calcium 40 Mg Tablet 40 Mg PO HS LAST FILLED #30 11-29-18 Aspirin EC (Aspirin) 81 Mg Tablet.dr 81 Mg PO DAILY Oxycodone-Acetaminophen 10-325 (Oxycodone HCl/Acetaminophen) 1 Each Tablet 1 Tab PO Q4H PRN Instructions to patient/family Please see electronic discharge instructions given to patient. Clinical Quality Measures DVT/VTE Risk/Contraindication: Risk Factor Score Per Nursin RFS Level Per Nursing on Admit: 4+=Very High AZEEM MELVIN DO Apr 27, 2019 10:52
[2019-04-27] MEDS ORDERED: INSU100I29 SQ (10:55)
--- NOTE | 2019-04-27 11:35 | NUR ---
TELEMETRY AND HL DC'D PT DISCHARGED. BLOOD SUGAR 71 MG/DL. REFUSED INSULIN.
--- NOTE | 2019-04-27 12:24 | NUR ---
INSTRUCTIONS GIVEN AND VERBALIZED UNDERSTANDING. DC'D PER WC.
--- NOTE | 2019-04-27 14:06 | NUR ---
Pt is restorationism. Box Shook Patcher offered active listening and engaged in rapport building.
== END 2019-04-27 12:24 | disposition home or self-care (01) ==
LOC: EDUNIT# 18:07 → ER 18:08 → 4TH 20:55
PROVIDERS: ADMIT Internal Medicine; ATTEND Internal Medicine
DX: E87.1 Hypo-osmolality and hyponatremia (principal); E11.65 Type 2 diabetes mellitus with hyperglycemia; R63.1 Polydipsia; G89.29 Other chronic pain; Z87.891 Personal history of nicotine dependence; Z95.5 Presence of coronary angioplasty implant and graft; J45.909 Unspecified asthma, uncomplicated; I25.10 Atherosclerotic heart disease of native coronary artery without angina pectoris; E78.00 Pure hypercholesterolemia, unspecified; I10 Essential (primary) hypertension; G43.909 Migraine, unspecified, not intractable, without status migrainosus; E11.40 Type 2 diabetes mellitus with diabetic neuropathy, unspecified; K21.0 Gastro-esophageal reflux disease with esophagitis; N19 Unspecified kidney failure; K58.9 Irritable bowel syndrome, unspecified; M79.7 Fibromyalgia; H91.90 Unspecified hearing loss, unspecified ear; F41.9 Anxiety disorder, unspecified; L40.9 Psoriasis, unspecified; Z86.718 Personal history of other venous thrombosis and embolism; K57.30 Diverticulosis of large intestine without perforation or abscess without bleeding; M54.9 Dorsalgia, unspecified; Z80.0 Family history of malignant neoplasm of digestive organs; Z79.82 Long term (current) use of aspirin; Z79.4 Long term (current) use of insulin; Z79.899 Other long term (current) drug therapy
CPT/HCPCS: 36415; 51702; 80053; 80306; 81000; 82962; 85007; 85025; 85027; 87088; 93005; 96360; 96361; G0378

== ENCOUNTER → 2019-05-16 | Outpatient (CLI) | payer MEDICARE ==
--- NOTE | 2019-05-16 11:53 | Diagnostic Imaging Report ---
INDICATION: Gastroparesis The patient was administered a solid test meal with 1.09 mCi Tc 99M sulfur colloid used for labeling of the meal. Region of interest curves were drawn over the stomach with the percent of retained activity calculated at hourly timed intervals for a total of 4 hours. A time activity curve was generated. FINDINGS: Percent retention as follows: (percent of administered activity retained within the stomach): 1.0 hour: 77% <30% = Rapid, >90% = Delayed 2.0 hour: 36% >60% = Abnormally Delayed 3.0 hour: 11% >30% = Abnormally Delayed 4.0 hour: 5% >10% = Abnormally Delayed IMPRESSION: Normal gastric emptying at all timed intervals. Dictated by: Dictated on workstation # [id number]
== END ==
LOC: CARD 06:34
PROVIDERS: ATTEND Pediatrics
DX: E11.43 Type 2 diabetes mellitus with diabetic autonomic (poly)neuropathy (principal); K31.84 Gastroparesis
CPT/HCPCS: 78264

== ENCOUNTER 2019-09-06 13:14 | Outpatient (RCR) | payer MEDICARE ==
[2019-06-30 12:55] VITALS: BP 122/59
[2019-08-10] MEDS: CATHETER FLUSH 10 ML SYR IV PRN (13:18)
[2019-08-10] MEDS: HEParin (CENTRAL IV FLUSH) 500 UNIT/5 ML SYR IV PRN (13:18)
[2019-08-10 13:20] VITALS: BP 95/74
[~2019-09-06] VITALS: Ht 154.9 cm; Wt 81.0 kg
[2019-09-06 13:10] VITALS: BP 94/64
[~2019-09-06 13:14] MED LIST changes: +HEParin (CENTRAL IV FLUSH) 500 UNIT/5 ML SYR ONE
[2019-09-06] MEDS: HEParin (CENTRAL IV FLUSH) 500 UNIT/5 ML SYR IV PRN (13:42)
[2019-09-06] MEDS: CATHETER FLUSH 10 ML SYR IV PRN (13:42)
== END 2019-09-28 | disposition home or self-care (01) ==
LOC: SDC 13:14
PROVIDERS: ATTEND Pediatrics
DX: Z45.2 Encounter for adjustment and management of vascular access device (principal); Z95.828 Presence of other vascular implants and grafts
CPT/HCPCS: 96523

== ENCOUNTER → 2019-09-06 | Outpatient (CLI) | payer MEDICARE ==
[~2019-09-06] MED LIST changes: -OMEP20CA12 PO; +OMEP20CA13 PO
--- NOTE | 2019-09-06 14:58 | Diagnostic Imaging Report ---
INDICATION: Cough and congestion. TIME OF EXAM: 02:28 p.m. COMPARISON: Correlation is made with prior chest from 03/21/2019. FINDINGS: Right chest wall port has tip at the SVC right atrial junction. The heart size is stable. The lungs are clear. No infiltrates are seen. There is no effusion or pneumothorax. Postop changes in the lower cervical spine as well as the lumbar spine are noted. IMPRESSION: Stable chest. No acute feature is detected. Dictated by: Dictated on workstation # [id number]
== END ==
LOC: RAD 14:01
PROVIDERS: ATTEND Family Medicine
DX: R05 Cough (principal); R09.89 Other specified symptoms and signs involving the circulatory and respiratory systems
CPT/HCPCS: 71046

== ENCOUNTER 2019-09-21 10:07 | Outpatient (RCR) | payer MEDICARE ==
[~2019-09-21 10:07] MED LIST changes: -HEParin (CENTRAL IV FLUSH) 500 UNIT/5 ML SYR ONE; -IBUP-2055 PO; +IBUP-2473 PO; -METO-370 PO; +METO50TA7 PO; +OMEP-280 PO; -OMEP20CA13 PO; -RANI-10 PO; +RANI-626 PO; -TRAM50TA2 PO; -TRAZ-222 PO; +TRM50T PO; +TRZ50T PO
[2019-12-16] MEDS ORDERED: INSU100I29 SQ ×2 (08:16)
[2019-12-16] MEDS ORDERED: PROM25TA14 PO (09:35)
[2019-12-17] MEDS ORDERED: FLUT9.9S NS (09:43)
[2019-12-17] MEDS ORDERED: TMSL.4C PO (09:43)
[2019-12-17] MEDS ORDERED: ACET-93 PO (09:43)
[2019-12-17] MEDS ORDERED: DEXT1DRO7 OP (09:43)
[2019-12-17] MEDS ORDERED: CLOP75TA69 PO (09:43)
[2019-12-17] MEDS ORDERED: PANT40TA2 PO (09:43)
[2019-12-17] MEDS ORDERED: CHOL200025 PO (09:43)
[2019-12-17] MEDS ORDERED: LORA10TA7 PO (09:43)
[2019-12-17] MEDS ORDERED: FINA5TAB6 PO (09:43)
[2019-12-17] MEDS ORDERED: IRON-17 PO (09:43)
[2019-12-17] MEDS ORDERED: MULT-178 PO (09:43)
[2019-12-17] MEDS ORDERED: FURO-124 PO (09:43)
[2019-12-17] MEDS ORDERED: BISA-65 PO (09:43)
[2019-12-17] MEDS ORDERED: OXYC1TAB87 PO (09:43)
[2019-12-17] MEDS ORDERED: CYAN100088 PO (09:43)
[2019-12-17] MEDS ORDERED: POTA10CA43 PO (09:43)
[2019-12-17] MEDS ORDERED: MIDO5TAB3 PO (09:43)
[2019-12-17] MEDS ORDERED: MIRT15TA6 PO (10:19)
[2019-12-17] MEDS ORDERED: LISI-552 PO (10:19)
[2019-12-17] MEDS ORDERED: OMEP20TA33 PO (10:19)
[2019-12-17] MEDS ORDERED: LINA5TAB PO (10:19)
[2019-12-17] MEDS ORDERED: INSU100V5 SQ ×2 (10:19)
[2019-12-17] MEDS ORDERED: GABA800T10 PO (10:19)
[2019-12-18] MEDS ORDERED: INSU100I23 SQ (09:25)
[2019-12-18] MEDS ORDERED: LISI10TA2 PO (09:26)
[2019-12-18] MEDS ORDERED: ASPI-983 PO (09:55)
[2019-12-18] MEDS ORDERED: ACET325T38 PO (09:55)
[2019-12-18] MEDS ORDERED: MELA5TAB21 PO (09:55)
== END 2019-12-20 | disposition home or self-care (01) ==
LOC: CARD 10:07
PROVIDERS: ATTEND Family Medicine
DX: R00.0 Tachycardia, unspecified (principal)
CPT/HCPCS: 93225; 93226

== ENCOUNTER 2019-10-31 13:00 | Outpatient (RCR) | payer MEDICARE ==
[2019-10-03 13:14] VITALS: BP 137/69
[~2019-10-31] VITALS: Ht 152 cm; Wt 81.0 kg
[~2019-10-31 13:00] MED LIST changes: +HEParin (CENTRAL IV FLUSH) 500 UNIT/5 ML SYR IV ONE; +HEParin (CENTRAL IV FLUSH) 500 UNIT/5 ML SYR ONE
[2019-10-31] MEDS ORDERED: HEParin (CENTRAL IV FLUSH) 500 UNIT/5 ML SYR ONE ×2 (13:16→13:41)
[2019-10-31 13:27] VITALS: BP 111/65
[2019-10-31] MEDS ORDERED: HEParin (CENTRAL IV FLUSH) 500 UNIT/5 ML SYR IV ONE (13:45)
[2019-11-08] MEDS ORDERED: ALTEPLASE 2 MG (CATHFLO) ONE (10:02)
[2019-12-16] MEDS ORDERED: INSU100I29 SQ ×2 (08:16)
[2019-12-16] MEDS ORDERED: PROM25TA14 PO (09:35)
[2019-12-17] MEDS ORDERED: DEXT1DRO7 OP (09:43)
[2019-12-17] MEDS ORDERED: ACET-93 PO (09:43)
[2019-12-17] MEDS ORDERED: LORA10TA7 PO (09:43)
[2019-12-17] MEDS ORDERED: TMSL.4C PO (09:43)
[2019-12-17] MEDS ORDERED: CLOP75TA69 PO (09:43)
[2019-12-17] MEDS ORDERED: BISA-65 PO (09:43)
[2019-12-17] MEDS ORDERED: MULT-178 PO (09:43)
[2019-12-17] MEDS ORDERED: POTA10CA43 PO (09:43)
[2019-12-17] MEDS ORDERED: FINA5TAB6 PO (09:43)
[2019-12-17] MEDS ORDERED: CYAN100088 PO (09:43)
[2019-12-17] MEDS ORDERED: FLUT9.9S NS (09:43)
[2019-12-17] MEDS ORDERED: IRON-17 PO (09:43)
[2019-12-17] MEDS ORDERED: OXYC1TAB87 PO (09:43)
[2019-12-17] MEDS ORDERED: MIDO5TAB3 PO (09:43)
[2019-12-17] MEDS ORDERED: PANT40TA2 PO (09:43)
[2019-12-17] MEDS ORDERED: CHOL200025 PO (09:43)
[2019-12-17] MEDS ORDERED: FURO-124 PO (09:43)
[2019-12-17] MEDS ORDERED: INSU100V5 SQ ×2 (10:19)
[2019-12-17] MEDS ORDERED: OMEP20TA33 PO (10:19)
[2019-12-17] MEDS ORDERED: MIRT15TA6 PO (10:19)
[2019-12-17] MEDS ORDERED: GABA800T10 PO (10:19)
[2019-12-17] MEDS ORDERED: LINA5TAB PO (10:19)
[2019-12-17] MEDS ORDERED: LISI-552 PO (10:19)
[2019-12-18] MEDS ORDERED: INSU100I23 SQ (09:25)
[2019-12-18] MEDS ORDERED: LISI10TA2 PO (09:26)
[2019-12-18] MEDS ORDERED: ACET325T38 PO (09:55)
[2019-12-18] MEDS ORDERED: ASPI-983 PO (09:55)
[2019-12-18] MEDS ORDERED: MELA5TAB21 PO (09:55)
[2019-12-28] MEDS ORDERED: OMEP-280 PO (10:29)
[2019-12-28] MEDS ORDERED: PROM25TA14 PO (10:41)
[2019-12-28] MEDS ORDERED: MELA5CAP PO (10:41)
[2019-12-28] MEDS ORDERED: GABA800T10 PO (10:46)
[2020-01-02] MEDS ORDERED: METO50TA7 PO (11:28)
[2020-01-02] MEDS ORDERED: MTP25TSR PO (11:28)
[2020-01-02] MEDS ORDERED: AMLO5TAB9 PO (11:28)
[2020-01-02] MEDS ORDERED: ATOR10TA66 PO (11:28)
[2020-01-02] MEDS ORDERED: AMOX500C2 PO (12:00)
== END 2020-01-01 | disposition home or self-care (01) ==
LOC: SDC 13:00
PROVIDERS: ATTEND Pediatrics
DX: Z95.828 Presence of other vascular implants and grafts (principal)
CPT/HCPCS: 96523

== ENCOUNTER 2019-11-10 08:18 | Day surgery (SDC) | payer MEDICARE ==
[~2019-11-10] VITALS: Ht 152.4 cm; Wt 59.3 kg
[~2019-11-10 08:18] MED LIST changes: -HEParin (CENTRAL IV FLUSH) 500 UNIT/5 ML SYR IV ONE; -HEParin (CENTRAL IV FLUSH) 500 UNIT/5 ML SYR ONE; +IBUP-2055 PO; -IBUP-2473 PO; +METO-370 PO; -METO50TA7 PO; -OMEP-280 PO; +OMEP20CA13 PO; +RANI-10 PO; -RANI-626 PO; +TRAM50TA2 PO; +TRAZ-222 PO; -TRM50T PO; -TRZ50T PO
[2019-11-10] MEDS ORDERED: LIDOCAINE 1% INJ 20 ML 20 ML VIAL ONE (08:20)
[2019-11-10 08:29] VITALS: BP 128/61
[2019-11-10] MEDS ORDERED: LIDOCAINE 1% INJ 20 ML 20 ML VIAL INJ ONE (08:30)
[2019-11-10 09:11] VITALS: BP 131/84
--- NOTE | 2019-11-10 16:56 | OPERATIVE REPORT ---
DATE OF SERVICE: 11/10/2019 INDICATIONS: The patient is a 59-year-old lady who has palpitations that are infrequent, but quite bothersome to her. She has had Holter monitor studies and they have not shown significant arrhythmia, but she states that she has not had her palpitation episodes during Holter monitoring. She also has a history of syncope. Implantable loop recorder implantation was advised. The procedure was carried out today after having obtained informed consent. DESCRIPTION OF PROCEDURE: [facility] The left prepectoral area was prepared and draped in the usual sterile fashion. Lidocaine 1% was used for local anesthesia. The tools provided with the [employer]onic LINQ device were used to make a subcutaneous pocket anterior to the left fourth intercostal space into which the device was placed and the wound edges were closed with Dermabond and Steri-Strips. She tolerated the procedure well. The serial number of the device is [id number]. Job ID: [id number] DocumentID: [id number] Dictated Date: 11/10/2019 08:58:26 Legal Biller Date: 11/10/2019 16:55:22 Dictated By: RICH FELIX MD, MA, FACP, FACC,
== END 2019-11-10 09:12 ==
LOC: CATH 08:18
PROVIDERS: ATTEND Internal Medicine Cardiovascular Disease
DX: R00.2 Palpitations (principal); R55 Syncope and collapse; J30.9 Allergic rhinitis, unspecified; I25.10 Atherosclerotic heart disease of native coronary artery without angina pectoris; M54.9 Dorsalgia, unspecified; G89.29 Other chronic pain; E11.9 Type 2 diabetes mellitus without complications; I12.9 Hypertensive chronic kidney disease with stage 1 through stage 4 chronic kidney disease, or unspecified chronic kidney disease; N18.9 Chronic kidney disease, unspecified; E78.5 Hyperlipidemia, unspecified; R09.02 Hypoxemia; G47.33 Obstructive sleep apnea (adult) (pediatric); R63.4 Abnormal weight loss; I65.23 Occlusion and stenosis of bilateral carotid arteries; H91.90 Unspecified hearing loss, unspecified ear; L40.50 Arthropathic psoriasis, unspecified; Z79.4 Long term (current) use of insulin; Z79.899 Other long term (current) drug therapy; Z79.82 Long term (current) use of aspirin; Z98.1 Arthrodesis status; Z87.891 Personal history of nicotine dependence; Z95.5 Presence of coronary angioplasty implant and graft; Z91.19 Patient's noncompliance with other medical treatment and regimen
CPT/HCPCS: 33285

== ENCOUNTER 2019-11-23 13:11 | Emergency (ER) | payer MEDICARE ==
[~2019-11-23] VITALS: Ht 149.8 cm; Wt 59.6 kg
[~2019-11-23 13:11] MED LIST changes: -TRAM50TA2 PO; +TRM50T PO
[2019-11-23 14:16] LABS: BILIRUBIN,URINE NEGATIVE (NEGATIVE); CLARITY,URINE CLEAR; COLOR,URINE YELLOW; GLUCOSE, URINE (UA) 3+ (NEGATIVE); KETONES,URINE NEGATIVE (NEGATIVE); LEUKOCYTE ESTERASE ,URINE NEGATIVE (NEGATIVE); NITRITE,URINE NEGATIVE (NEGATIVE); PROTEIN,URINE NEGATIVE (NEGATIVE)
--- NOTE | 2019-11-23 14:29 | ED General ---
General Chief Complaint: Glucose Problems Stated Complaint: HIGH BLOOD SUGAR Nursing Triage Note: AMB TO ED REPORTS THAT BS HAS BEEN HIGH FOR LAST 6 MONTHS . REPORTS UNABLE TO GET APPOINTMENT WITH [facility] Nursing Sepsis Screen: No Definite Risk Source of Information: Patient History of Present Illness Date Seen by Provider: Nov 23, 2019 Time Seen by Provider: 14:25 Initial Comments This 59-year-old white female presents with a history of daily hyperglycemia for the last 6 months. The patient's daily regimen of 30 units of Levemir and repeated boluses of 15 units of Humalog every 3 hours has not Her glucose in control. The patient has discontinued Percocet in the last 6 months for her chronic pain. She attributes her hyperglycemia to the lack of Percocet. Patient denies associated fever, chills, productive cough, vomiting, diarrhea, dysuria, flank pain, headache, photophobia, or stiff neck. Allergies and Home Medications Allergies Coded Allergies: ketorolac (Verified Allergy, Severe, ANAPHYLAXIS, PT TAKES ASA AT HOME, 03/06/19) ondansetron (Verified Allergy, Intermediate, RASH, 03/06/19) RASH/ HIVES scopolamine (Verified Allergy, Mild, Rash, 03/21/19) exenatide (Verified Allergy, Unknown, NAUSEA, 03/06/19) NON STOP VOMITING latex (Verified Allergy, Unknown, RASH, 03/06/19) metoclopramide (Verified Allergy, Unknown, RESTLESS LEGS, 03/06/19) erythromycin base (Verified Adverse Reaction, Unknown, 03/21/19) Home Medications Aspirin 81 Mg Tablet.dr, 81 MG PO DAILY, (Reported) Atorvastatin Calcium 40 Mg Tablet, 40 MG PO HS, (Reported) LAST FILLED #30 11-29-18 Gabapentin 800 Mg Tablet, 1,600 MG PO HS, (Reported) TAKES 2 (800MG) TABLETS Gabapentin 800 Mg Tablet, 800 MG PO DAILY PRN for NERVE PAIN, (Reported) Insulin Detemir 100 Unit/1 Ml Insuln.pen, 20 UNIT SQ DAILY Prescribed by: AZEEM MELVIN on 04/27/19 1055 Insulin Lispro 100 Unit/1 Ml Insuln.pen, SQ TIDAC, (Reported) LAST FILLED MARCH 2018 Linagliptin 5 Mg Tablet, 5 MG PO DAILY, (Reported) LAST FILLED #30 02-01-19 Melatonin 5 Mg Capsule, 5 MG PO HS PRN for SLEEP, (Reported) Mirtazapine 15 Mg Tablet, 15 MG PO HS, (Reported) Omeprazole 20 Mg Capsule.dr, 20 MG PO DAILY, (Reported) Oxycodone HCl 10 Mg Tablet, 10 MG PO DAILY, (Reported) Oxycodone HCl/Acetaminophen 1 Each Tablet, 1 TAB PO Q4H PRN for PAIN-MODERATE, (Reported) Patient Home Medication List Home Medication List Reviewed: Yes Review of Systems Review of Systems Constitutional: No chills, No fever; malaise EENTM: no symptoms reported Respiratory: No cough Cardiovascular: No chest pain Gastrointestinal: No abdominal pain, No diarrhea, No vomiting Genitourinary: No dysuria, No frequency Musculoskeletal: No back pain Skin: No change in color, No rash Psychiatric/Neurological: Other (chronic Percocet use) Hematologic/Lymphatic: No Symptoms Reported Immunological/Allergic: no symptoms reported Past Bxyunpp-[id number]-Jwfahg Hx Past Med/Social Hx: Reviewed Nursing Past Med/Soc Hx Patient Social History Alcohol Use: Denies Use Number of Drinks Today: Alcohol Beverage of Choice: Wine Recreational Drug Use: Yes Smoking Status: Current Everyday Smoker Type Used: Cigars, Cigarettes Former Smoker, Quit: Nov 10, 2017 2nd Hand Smoke Exposure: No Recent Foreign Travel: No Contact w/Someone Who Travel: No Recent Infectious Disease Expo: No Recent Hopitalizations: No Immunizations Up To Date Tetanus Booster (TDap): Unknown PED Vaccines UTD: No Date of Pneumonia Vaccine: Nov 22, 2018 Date of Influenza Vaccine: Sep 22, 2018 Seasonal Allergies Seasonal Allergies: Yes Past Medical History Surgeries: Yes (LITHOTRIPSY, FUSION/LAMINECTOMY X4, BMT, EGD with dilation of stricture) Cardiac, Coronary Stent, Gallbladder, Orthopedic Respiratory: Yes Chronic Bronchitis, Sleep Apnea Currently Using CPAP: Yes (ISN'T USING RIGHT NOW-ALLERGIES TOO BAD) Currently Using BIPAP: No Cardiac: Yes (CARDIAC STENT (AORTA) X 1; DVT'S IN ARMS) Chronic Edema/Swelling, Coronary Artery Disease, Deep Vein Thrombosis, High Cholesterol, Hypertension Neurological: Yes (NEUROPATHY IN HANDS AND FEET) Headaches /Migraines, Neuropathy 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 Disorders: No 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 Disorders: Denies [employer]OR History: Menopausal Sexually Transmitted Disease: No HIV/AIDS: No Genitourinary: Yes Bladder Infection, Kidney Stones, Renal Failure Gastrointestinal: Yes (Gastritis, esophageal stricture, gastroparesis) Gastroesophageal Reflux, Diverticulosis, Esophagitis, Irritable Bowel Musculoskeletal: Yes Degenerate Disk Disease, Fibromyalgia, Chronic Back Pain Endocrine: Yes Diabetes, Insulin dep HEENT: Yes (GLASSES) Chronic Ear Infection Loss of Vision: Bilateral Hearing Impairment: Hard of Hearing Cancer: No Psychosocial: Yes Anxiety Integumentary: Yes Psoriasis Blood Disorders: No Adverse Reaction/Blood Tranf: No (HAS HAD BLOOD WITH NO REACTION) Family Medical History Cancer of mouth 19 FATHER ( of esophogeal cancer.) Cardiovascular disease 19 MOTHER G8 BROTHER Completed stroke 19 FATHER G8 BROTHER Diabetes mellitus G8 BROTHER FH: lung cancer 19 MOTHER Hypertension 19 FATHER Kidney disease 19 FATHER Myocardial infarction 19 MOTHER G8 BROTHER Respiratory disorder No Family History of: AIDS CAD Over 55 Years Old, CVA, Diabetes, GI Disease, Renal Disease Physical Exam Vital Signs Vital Signs - First Documented 11/23/19 13:25 Temp 36.6 Pulse 69 Resp 18 B/P (MAP) 157/65 (95) Pulse Ox 96 O2 Delivery Room Air Capillary Refill : Less Than 3 Seconds Height, Weight, BMI Height: 5'1.00" Weight: 122lbs. 1.0oz. 55.323020mb; 26.00 BMI Method:Estimated General Appearance: No Apparent Distress, WD/WN Eyes: Bilateral Eye Normal Inspection HEENT: Normal ENT Inspection Neck: Normal Inspection, Non Tender Respiratory: Lungs Clear, Normal Breath Sounds Cardiovascular: Regular Rate, Rhythm Gastrointestinal: Normal Bowel Sounds, No Pulsatile Mass, Non Tender, Soft Extremity: Normal Inspection, Normal Range of Motion, Non Tender Neurologic/Psychiatric: Oriented x3, No Motor/Sensory Deficits, Normal Mood/Affect Skin: Normal Color, Warm/Dry; No Rash Progress/Results/Core Measures Suspected Sepsis Recent Fever Within 48 Hours: No Infection Criteria Present: None New/Unexplained Altered Menta: No Sepsis Screen: No Definite Risk SIRS Temperature: Pulse: 69 Respiratory Rate: 18 Laboratory Tests 11/23/19 14:30: White Blood Count 8.1 Blood Pressure 157 /65 Mean: 95 Laboratory Tests 11/23/19 14:30: Creatinine 1.47H, Platelet Count 221, Total Bilirubin 0.3 Results/Orders Lab Results Laboratory Tests Test 11/23/19 13:39 11/23/19 14:16 11/23/19 14:30 Range/Units Urine Color YELLOW Urine Clarity CLEAR Urine pH 6.0 5-9 Urine Specific [place] 1.010 L 1.016-1.022 Urine Protein NEGATIVE NEGATIVE Urine Glucose (UA) 3+ H NEGATIVE Urine Ketones NEGATIVE NEGATIVE Urine Nitrite NEGATIVE NEGATIVE Urine Bilirubin NEGATIVE NEGATIVE Urine Urobilinogen 0.2 < = 1.0 MG/DL Urine Leukocyte Esterase NEGATIVE NEGATIVE Urine RBC (Auto) NEGATIVE NEGATIVE Urine RBC RARE /HPF Urine WBC RARE /HPF Urine Squamous Epithelial Cells 0-2 /HPF Urine Crystals NONE /LPF Urine Bacteria TRACE /HPF Urine Casts NONE /LPF Urine Mucus NEGATIVE /LPF Urine Culture Indicated NO Glucometer > 600 *H 70-110 MG/DL White Blood Count 8.1 4.3-11.0 10^3/uL Red Blood Count 4.20 L 4.35-5.85 10^6/uL Hemoglobin 12.7 11.5-16.0 G/DL Hematocrit 36 35-52 % Mean Corpuscular Volume 85 80-99 FL Mean Corpuscular Hemoglobin 30 25-34 PG Mean Corpuscular Hemoglobin Concent 36 32-36 G/DL Red Cell Distribution Width 13.3 10.0-14.5 % Platelet Count 221 130-400 10^3/uL Mean Platelet Volume 10.6 H 7.4-10.4 FL Neutrophils (%) (Auto) 60 42-75 % Lymphocytes (%) (Auto) 29 12-44 % Monocytes (%) (Auto) 5 0-12 % Eosinophils (%) (Auto) 5 0-10 % Basophils (%) (Auto) 1 0-10 % Neutrophils # (Auto) 4.8 1.8-7.8 X 10^3 Lymphocytes # (Auto) 2.4 1.0-4.0 X 10^3 Monocytes # (Auto) 0.4 0.0-1.0 X 10^3 Eosinophils # (Auto) 0.4 H 0.0-0.3 10^3/uL Basophils # (Auto) 0.1 0.0-0.1 10^3/uL Sodium Level 124 *L 135-145 MMOL/L Potassium Level 5.3 H 3.6-5.0 MMOL/L Chloride Level 94 L 98-107 MMOL/L Carbon Dioxide Level 17 L 21-32 MMOL/L Anion Gap 13 5-14 MMOL/L Blood Urea Nitrogen 25 H 7-18 MG/DL Creatinine 1.47 H 0.60-1.30 MG/DL Estimat Glomerular Filtration Rate 36 BUN/Creatinine Ratio 17 Glucose Level 898 *H 70-105 MG/DL Calcium Level 8.8 8.5-10.1 MG/DL Corrected Calcium 8.7 8.5-10.1 MG/DL Total Bilirubin 0.3 0.1-1.0 MG/DL Aspartate Amino Transf (AST/SGOT) 10 5-34 U/L Alanine Aminotransferase (ALT/SGPT) 10 0-55 U/L Alkaline Phosphatase 126 40-136 U/L Total Protein 7.0 6.4-8.2 GM/DL Albumin 4.1 3.2-4.5 GM/DL My Orders Orders - QUIN SIDDIQI MD Cbc With Automated Diff (11/23/19 14:09) Comprehensive Metabolic Panel (11/23/19 14:09) Ua Culture If Indicated (11/23/19 14:09) Ns Iv 1000 Ml (Sodium Chloride 0.9%) (11/23/19 14:30) Promethazine Injection (Phenergan Injec (11/23/19 15:00) Diphenhydramine Injection (Benadryl Inje (11/23/19 15:00) Arterial Blood Gas (11/23/19 14:57) Insulin (Regular) Human (Humulin R (Per (11/23/19 15:15) Insulin Regular Tpn/Drip Only (Humulin R (11/23/19 15:15) Medications Given in ED Current Medications Medications Dose Ordered Sig/Jackie Route Start Time Stop Time Status Last Admin Dose Admin Diphenhydramine HCl 25 mg ONCE ONCE IVP 11/23/19 15:00 11/23/19 15:01 DC 11/23/19 15:00 25 MG Promethazine HCl 25 mg ONCE ONCE IVP 11/23/19 15:00 11/23/19 15:01 DC 11/23/19 15:07 25 MG Vital Signs/I&O 11/23/19 13:25 Temp 36.6 Pulse 69 Resp 18 B/P (MAP) 157/65 (95) Pulse Ox 96 O2 Delivery Room Air Capillary Refill : Less Than 3 Seconds Blood Pressure Mean: 95 Progress Note : Time: 15:29 Progress Note Patient's glucose was 900. Sodium was 124. ABGs of been ordered. Patient's nausea was treated with IV Phenergan and Benadryl. Initial treatment of patient's glucose consisted of a feeling bolus of normal saline. 10 units of regular insulin subcutaneous were given. The patient was started on insulin drip. Consultation was undertaken with Dr. Calabrese who was kind enough to admit patient to the ICU. Dr. Bright was consulated who will follow patient as well. Departure Communication (Admissions) Time/Spoke to Admitting Phy: 15:32 Dr. Calabrese Time/Spoke to Consulting Phy: 15:32 Dr. Bright Impression Primary Impression: Diabetic ketoacidosis Qualified Codes: E10.10 - Type 1 diabetes mellitus with ketoacidosis without coma Disposition: ADMITTED INPATIENT Condition: Improved Admissions Decision to Admit Reason: Admit from ER (General) Decision to Admit/Date: Nov 23, 2019 Time/Decision to Admit Time: 15:32 Departure-Patient Inst. Referrals: CINDY CALABRESE DO (PCP/Family) Primary Care Physician QUIN SIDDIQI MD Nov 23, 2019 14:29
[2019-11-23] MEDS ORDERED: NS IV 1000 ML 1,000 ML IV SCH (14:30)
[2019-11-23 14:31] LABS: BACTERIA,URINE TRACE /HPF; RBC,URINE RARE /HPF; SQUAMOUS EPITHELIAL CELL,UR 0-2 /HPF; WBC,URINE RARE /HPF
[2019-11-23 14:38] LABS: BASOPHILS # (AUTO) 0.1 10^3/uL (0.0-0.1); BASOPHILS % (AUTO) 1 % (0-10); EOSINOPHILS # (AUTO) 0.4 10^3/uL (0.0-0.3); EOSINOPHILS % (AUTO) 5 % (0-10); HEMATOCRIT 36 % (35-52); HEMOGLOBIN 12.7 G/DL (11.5-16.0); LYMPHOCYTES # (AUTO) 2.4 X 10^3 (1.0-4.0); LYMPHOCYTES % (AUTO) 29 % (12-44); MEAN CORPUSCULAR HEMOGLOBIN 30 PG (25-34); MEAN CORPUSCULAR HGB CONC 36 G/DL (32-36); MEAN CORPUSCULAR VOLUME 85 FL (80-99); MEAN PLATELET VOLUME 10.6 FL (7.4-10.4); MONOCYTES # (AUTO) 0.4 X 10^3 (0.0-1.0); MONOCYTES % (AUTO) 5 % (0-12); NEUTROPHILS # (AUTO) 4.8 X 10^3 (1.8-7.8); NEUTROPHILS % (AUTO) 60 % (42-75); PLATELET COUNT 221 10^3/uL (130-400); RED CELL DISTRIBUTION WIDTH 13.3 % (10.0-14.5); WHITE BLOOD COUNT 8.1 10^3/uL (4.3-11.0)
[2019-11-23 15:00] LABS: ALBUMIN 4.1 GM/DL (3.2-4.5); BILIRUBIN,TOTAL 0.3 MG/DL (0.1-1.0); CALCIUM 8.8 MG/DL (8.5-10.1); CREATININE SERUM 1.47 MG/DL (0.60-1.30); POTASSIUM 5.3 MMOL/L (3.6-5.0)
[2019-11-23] MEDS ORDERED: PROMETHAZINE INJ 25 MG/ML (PHENERGAN) AMP IVP ONE (15:00)
[2019-11-23] MEDS ORDERED: diphenhydrAMINE 50 MG/ML INJ (BENADRYL) IVP ONE (15:00)
[2019-11-23] MEDS ORDERED: inSUlin (REGULAR) HUMAN 1 UNIT/0.01 ML (CHARGE PER UNIT) SC ONE (15:15)
[2019-11-23] MEDS ORDERED: inSUlin REGULAR TPN/DRIP ONLY 250 UNITS in NORMAL SALINE 250 ML IV SCH (15:15)
--- NOTE | 2019-11-23 16:36 | NUR ---
Called shift captain re: transport to ED.
[2019-11-23 17:19] LABS: ABG BASE EXCESS -7.3 MMOL/L (-2.5-2.5); ABG OXYGEN SATURATION 94 % (94-100); ABG PCO2 40 MMHG (35-45); ABG PO2 82 MMHG (79-93); ABG TCO2 19.6 MMOL/L (21.0-31.0)
[2019-11-23 17:27] LABS: ABG PH 7.28 (7.37-7.43); ALLENS TEST YES-POS; INSPIRED O2 RA; PATIENT TEMP 97.8; VENTILATOR NO
--- NOTE | 2019-11-23 17:28 | NUR ---
blood sugar 516
[2019-11-23 17:29] VITALS: BP 119/62
== END 2019-11-23 17:39 | disposition other institution (70) ==
LOC: EDUNIT# 13:11 → ER 13:12
DX: E10.10 Type 1 diabetes mellitus with ketoacidosis without coma (principal); E10.40 Type 1 diabetes mellitus with diabetic neuropathy, unspecified; I10 Essential (primary) hypertension; E78.00 Pure hypercholesterolemia, unspecified; I25.10 Atherosclerotic heart disease of native coronary artery without angina pectoris; G43.909 Migraine, unspecified, not intractable, without status migrainosus; F41.9 Anxiety disorder, unspecified; K21.9 Gastro-esophageal reflux disease without esophagitis; M79.7 Fibromyalgia; F17.210 Nicotine dependence, cigarettes, uncomplicated; K58.9 Irritable bowel syndrome, unspecified; F17.290 Nicotine dependence, other tobacco product, uncomplicated; G47.30 Sleep apnea, unspecified; Z87.442 Personal history of urinary calculi; Z86.718 Personal history of other venous thrombosis and embolism; Z99.89 Dependence on other enabling machines and devices; Z95.5 Presence of coronary angioplasty implant and graft; Z88.6 Allergy status to analgesic agent; Z91.040 Latex allergy status; Z88.1 Allergy status to other antibiotic agents; Z79.82 Long term (current) use of aspirin; Z79.4 Long term (current) use of insulin; Z82.49 Family history of ischemic heart disease and other diseases of the circulatory system; Z80.1 Family history of malignant neoplasm of trachea, bronchus and lung; Z80.0 Family history of malignant neoplasm of digestive organs
CPT/HCPCS: 36415; 36600; 80053; 81000; 82805; 82962; 85025; 96361; 96365; 96372; 96375

== ENCOUNTER 2019-12-15 23:51 | Observation (INO) | payer MEDICARE ==
[~2019-12-15] VITALS: Ht 149.7 cm; Wt 56.5 kg
[~2019-12-15 23:51] MED LIST changes: -IBUP-2055 PO; +IBUP-2473 PO; -METO-370 PO; +METO50TA7 PO; +OMEP-280 PO; -OMEP20CA13 PO; -RANI-10 PO; +RANI-626 PO; -TRAZ-222 PO; +TRZ50T PO
[2019-12-16] MEDS ORDERED: NS IV 1000 ML 1,000 ML IV ONE ×2 (00:03→01:05)
[2019-12-16 00:40] LABS: BASOPHILS # (AUTO) 0.1 10^3/uL (0.0-0.1); BASOPHILS % (AUTO) 1 % (0-10); EOSINOPHILS # (AUTO) 0.4 10^3/uL (0.0-0.3); EOSINOPHILS % (AUTO) 3 % (0-10); HEMATOCRIT 36 % (35-52); LYMPHOCYTES # (AUTO) 4.2 X 10^3 (1.0-4.0); LYMPHOCYTES % (AUTO) 34 % (12-44); MEAN CORPUSCULAR HEMOGLOBIN 30 PG (25-34); MEAN CORPUSCULAR HGB CONC 36 G/DL (32-36); MEAN CORPUSCULAR VOLUME 84 FL (80-99); MONOCYTES # (AUTO) 0.6 X 10^3 (0.0-1.0); MONOCYTES % (AUTO) 5 % (0-12); NEUTROPHILS # (AUTO) 7.2 X 10^3 (1.8-7.8); NEUTROPHILS % (AUTO) 57 % (42-75); PLATELET COUNT 274 10^3/uL (130-400); RED CELL DISTRIBUTION WIDTH 13.1 % (10.0-14.5); WHITE BLOOD COUNT 12.6 10^3/uL (4.3-11.0)
[2019-12-16] MEDS ORDERED: inSUlin (REGULAR) HUMAN 1 UNIT/0.01 ML (CHARGE PER UNIT) IV ONE (00:45)
[2019-12-16 01:00] LABS: ALANINE AMINOTRANSFERASE 7 U/L (0-55); ALKALINE PHOSPHATASE 107 U/L (40-136); AMYLASE 51 U/L (25-125); BILIRUBIN,TOTAL 0.2 MG/DL (0.1-1.0); BUN/CREATININE RATIO 17; CARBON DIOXIDE 18 MMOL/L (21-32); CHLORIDE 101 MMOL/L (98-107); CREATININE SERUM 1.98 MG/DL (0.60-1.30); GFR ESTIMATED 26; GLUCOSE 318 MG/DL (70-105); LIPASE 15 U/L (8-78); MAGNESIUM 1.7 MG/DL (1.6-2.4); POTASSIUM 4.2 MMOL/L (3.6-5.0); SODIUM 133 MMOL/L (135-145); TOTAL PROTEIN 6.9 GM/DL (6.4-8.2)
[2019-12-16 01:31] LABS: BILIRUBIN,URINE NEGATIVE (NEGATIVE); CLARITY,URINE CLEAR; COLOR,URINE YELLOW; GLUCOSE, URINE (UA) 2+ (NEGATIVE); KETONES,URINE NEGATIVE (NEGATIVE); LEUKOCYTE ESTERASE ,URINE NEGATIVE (NEGATIVE); NITRITE,URINE NEGATIVE (NEGATIVE); PROTEIN,URINE 2+ (NEGATIVE)
[2019-12-16 01:40] LABS: BACTERIA,URINE TRACE /HPF
[2019-12-16 01:41] LABS: AMPHETAMINE SCREEN, URINE NEGATIVE (NEGATIVE); BARBITURATE SCREEN URINE NEGATIVE (NEGATIVE); BENZODIAZEPINES SCREEN URINE NEGATIVE (NEGATIVE); CANNABINOID SCREEN, URINE NEGATIVE (NEGATIVE); COCAINE SCREEN URINE NEGATIVE (NEGATIVE); METHADONE STAT NEGATIVE (NEGATIVE); METHAMPHETAMINE SCREEN URINE S NEGATIVE (NEGATIVE); OPIATE SCREEN URINE NEGATIVE (NEGATIVE); OXYCODONE STAT NEGATIVE (NEGATIVE); PROPOXYPHENE STAT NEGATIVE (NEGATIVE); TRICYCLIC ANTIDEPRESSANTS SCRE NEGATIVE (NEGATIVE)
[2019-12-16 02:01] LABS: ABG BASE EXCESS -6.1 MMOL/L (-2.5-2.5); ABG OXYGEN SATURATION 97 % (94-100); ABG PCO2 34 MMHG (35-45); ABG PH 7.35 (7.37-7.43); ABG PO2 93 MMHG (79-93); ABG TCO2 19.5 MMOL/L (21.0-31.0)
[2019-12-16 02:03] LABS: ALLENS TEST YES-POS; INSPIRED O2 ROOM AIR; PATIENT TEMP 36.8; VENTILATOR NO
[2019-12-16] MEDS ORDERED: DEXTROSE 50% 50 ML (IMS) SYR IV ONE (02:45)
--- NOTE | 2019-12-16 03:18 | NUR ---
VALENTE HARPER admitted to room 412-1, with an admitting diagnosis of Mild DKA, Uncontrolled Diabetes, Dehydration with Acure Renal Failure, and Chronic Nausea and Vomiting, on 12/16/19 from ED via bed, accompanied by staff.VALENTE HARPER introduced to surroundings, call light, bed controls, phone, TV, temperature control, lights, meal times, smoking policy, visitor policy, side rail policy, bathrooms and showers. Patient Rights given to patient in the handbook. VALENTE HARPER verbalizes understanding that [facility] is not responsible for the loss or damage to any personal effects or valuables that are kept in the patients posession during their hospitalization.
[2019-12-16] MEDS ORDERED: diphenhydrAMINE 50 MG/ML INJ (BENADRYL) IV PRN (04:15)
[2019-12-16] MEDS ORDERED: PROMETHAZINE INJ 25 MG/ML (PHENERGAN) AMP IV PRN (04:15)
[2019-12-16] MEDS ORDERED: NS W/KCL 20 MEQ/L 1,000 ML IV SCH (04:15)
[2019-12-16 05:02] LABS: BASOPHILS # (AUTO) 0.1 10^3/uL (0.0-0.1); BASOPHILS % (AUTO) 1 % (0-10); EOSINOPHILS # (AUTO) 0.3 10^3/uL (0.0-0.3); EOSINOPHILS % (AUTO) 3 % (0-10); HEMATOCRIT 33 % (35-52); HEMOGLOBIN 11.8 G/DL (11.5-16.0); LYMPHOCYTES # (AUTO) 3.2 X 10^3 (1.0-4.0); LYMPHOCYTES % (AUTO) 28 % (12-44); MEAN CORPUSCULAR HEMOGLOBIN 30 PG (25-34); MEAN CORPUSCULAR HGB CONC 35 G/DL (32-36); MEAN CORPUSCULAR VOLUME 85 FL (80-99); MEAN PLATELET VOLUME 10.7 FL (7.4-10.4); MONOCYTES # (AUTO) 0.7 X 10^3 (0.0-1.0); MONOCYTES % (AUTO) 6 % (0-12); NEUTROPHILS % (AUTO) 62 % (42-75); PLATELET COUNT 231 10^3/uL (130-400); WHITE BLOOD COUNT 11.3 10^3/uL (4.3-11.0)
[2019-12-16 05:20] LABS: ALBUMIN 3.5 GM/DL (3.2-4.5); BILIRUBIN,TOTAL 0.2 MG/DL (0.1-1.0); CALCIUM 8.2 MG/DL (8.5-10.1); CREATININE SERUM 1.45 MG/DL (0.60-1.30); POTASSIUM 4.1 MMOL/L (3.6-5.0)
--- NOTE | 2019-12-16 05:29 | ED General ---
General Chief Complaint: General Problems/Pain Stated Complaint: UNCONTROLLED DIABETES MILD DKA;DEHYDRATION W/ACUTE Nursing Triage Note: TO ED ROOM 7 VIA [facility] WITH C/O SPASMS THAT STARTED IN LEGS AND NOW IN ARMS AND WHOLE BODY. 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 PT HAS EXTENSIVE HISTORY OF NARCOTIC USE/ABUSE, AND PERCOCET WAS STOPPED SEVERAL MONTHS AGO, AND PT WAS THEN PLACED ON SUBOXONE. PT STATES SHE RAN OUT OF SUBOXONE A WEEK AGO STATES SHE USED TO SEE DR. Shanta BARRETT AT [facility] FOR PAIN MANAGEMENT, BUT SHE "GOT FIRED" FROM THEM, AND IS NOW SEEING DR. CALABRESE "FOR A COUPLE OF MONTHS" -STATES HE HAS NOT PRESCRIBED ANY PAIN MEDICATIONS OR SUBOXONE. PT ALSO HAS CHRONIC NAUSEA/VOMITING DAILY AND TAKES PHENERGAN AND BENADRYL DAILY. STATES SHE TOOK PHENERGAN WITHOUT TAKING ANY BENADRYL TODAY AROUND 1500, AND THESE SYMPTOMS BEGAN AN HOUR LATER PT STATES THIS HAS HAPPENED BEFORE--STATES "IT'S THE SAME KIND OF SPASMS I GET IF I DON'T TAKE THE BENADRYL"--BUT THEN DID NOT TAKE ANY BENADRYL UNTIL JUST EMS ARRIVED AT THE HOME. PT THEN LATER STATES THAT HER SYMPTOMS DID NOT START UNTIL 1900. STATES SHE HAS HAD NAUSEA ALL DAY, AND HAS VOMITED LESS THAN 5 TIMES TODAY. VOMITED TWICE YESTERDAY. HAD ONE EPISODE OF DIARRHEA TODAY NO ABDOMINAL PAIN PT HAS BEEN DX WITH DIABETIC GASTROPARESIS, BUT HAS REFUSED ALL RECOMMENDED TREATMENTS--ONLY WANTS PAIN MEDICATION AND PHENERGAN AND BENADRYL. STATES SHE HAS "NOT HAD ANYTHING TO EAT OR DRINK FOR A WEEK" STATES SHE HAS NOT BEEN ABLE TO URINATE ALL WEEK STATES SHE VOIDED AT 1830 ON WEDNESDAY NIGHT DID NOT URINATE AT ALL ON WEDNESDAY URINATED A LITTLE ON WEDNESDAY MORNING DID NOT URINATE ON WEDNESDAY URINATED TWICE TODAY, SMALL AMOUNTS PT STATES HER BLOOD SUGAR READS "HIGH" ON HER GLUCOMETER EVERY DAY, AND HAS FOR A VERY LONG TIME ACCUCHECK WAS 371 FOR EMS. PT STATES SHE WAS "HERE LAST WEEK" FOR ELEVATED BLOOD SUGAR, BUT STATES "YOU DIDN'T KEEP ME-THEY SENT ME HOME" ON REVIEW OF CHART, PT WAS SEEN HERE 11/23/19 AND WAS DX WITH DKA, WAS STARTED ON INSULIN DRIP, AND WAS TRANSFERRED TO [place] BY EMS DUE TO THIS FACILITY BEING ON DIVERSION PT HAS HAS A MULTITUDE OF EPISODES OF DKA,AND LONG HISTORY OF NON-COMPLIANCE IN ALL ASPECTS OF CARE PT CLAIMS THAT SHE IS CURRENTLY PRESCRIBED: LEVEMIR 35 UNITS IN AM, 15 UNITS IN PM. PT STATES SHE ALSO TAKES HUMALOG "SLIDING SCALE" PT STATES SHE STARTED SEEING DR. CALABRESE "A COUPLE OF MONTHS AGO" STATES SHE SAW HIM "A COUPLE OF MONTHS AGO" FOR COLD SYMPTOMS STATES SHE WAS PLACED ON 2 UNKNOWN ANTIBIOTICS AND UNKNOWN COUGH MEDICATION STATES SHE FINISHED ANTIBIOTICS AND THOSE SYMPTOMS HAVE RESOLVED PT STATES SHE HAS NOT SEEN DR. CALABRESE SINCE THEN --"NOT FOR A COUPLE OF MONTHS" PCP: DR. CALABRESE. USED TO GOT TO [facility], DR. Shanta BARRETT WAS LAST PROVIDER Allergies and Home Medications Allergies Coded Allergies: ketorolac (Verified Allergy, Severe, ANAPHYLAXIS, PT TAKES ASA AT HOME, 03/06/19) ondansetron (Verified Allergy, Intermediate, RASH, 03/06/19) RASH/ HIVES scopolamine (Verified Allergy, Mild, Rash, 03/21/19) exenatide (Verified Allergy, Unknown, NAUSEA, 03/06/19) NON STOP VOMITING latex (Verified Allergy, Unknown, RASH, 03/06/19) metoclopramide (Verified Allergy, Unknown, RESTLESS LEGS, 03/06/19) erythromycin base (Verified Adverse Reaction, Unknown, 03/21/19) Home Medications Aspirin 81 Mg Tablet., 81 MG PO DAILY, (Reported) Atorvastatin Calcium 40 Mg Tablet, 40 MG PO HS, (Reported) LAST FILLED #30 11-29-18 Gabapentin 800 Mg Tablet, 1,600 MG PO HS, (Reported) TAKES 2 (800MG) TABLETS Gabapentin 800 Mg Tablet, 800 MG PO DAILY PRN for NERVE PAIN, (Reported) Insulin Detemir 100 Unit/1 Ml Insuln.pen, 35 UNIT SQ DAILY TAKES 35 UNITS LEVEMIR AM AND TAKES 15 UNITS AT HS Prescribed by: LUCIANO REYES on 12/16/19 0816 Insulin Detemir 100 Unit/1 Ml Insuln.pen, 15 UNIT SQ HS, (Reported) Insulin Lispro 100 Unit/1 Ml Insuln.pen, SQ TIDAC, (Reported) LAST FILLED MARCH 2018 Linagliptin 5 Mg Tablet, 5 MG PO DAILY, (Reported) LAST FILLED #30 02-01-19 Melatonin 5 Mg Capsule, 5 MG PO HS PRN for SLEEP, (Reported) Mirtazapine 15 Mg Tablet, 15 MG PO HS, (Reported) Omeprazole 20 Mg Capsule.dr, 20 MG PO DAILY, (Reported) Promethazine HCl 25 Mg Tablet, 25 MG PO Q6H PRN for NAUSEA/VOMITING Prescribed by: JUAN DAVID BRADSHAW on 12/16/19 0935 Patient Home Medication List Home Medication List Reviewed: Yes Review of Systems Review of Systems Constitutional: no symptoms reported; No chills, No diaphoresis, No dizziness, No fever EENTM: no symptoms reported Respiratory: no symptoms reported; No cough, No short of breath Cardiovascular: no symptoms reported; No chest pain, No edema, No palpitations Gastrointestinal: see HPI; No abdominal pain; loss of appetite, nausea, vomiting Genitourinary: see HPI, decreased output Musculoskeletal: other (CHROINC GENERALIZED PAIN COMPLAINTS, BUT MAIN COMPLAINT TONIGHT IS HER CHRONIC SHOULDER PAIN ) Skin: no symptoms reported; No rash Psychiatric/Neurological: See HPI; Denies Headache, Denies Numbness, Denies Paresthesia, Denies Seizure, Denies Tingling; Tremors; Denies Weakness Hematologic/Lymphatic: No Symptoms Reported Immunological/Allergic: no symptoms reported Past [id number]-[id number] Hx Patient Social History Alcohol Use: Rarely Uses Number of Drinks Today: Alcohol Beverage of Choice: Wine Recreational Drug Use: Yes (NARCOTIC ABUSE) Drug of Choice: NARCOTIC ABUSE Smoking Status: Current Everyday Smoker (1 PPD) Type Used: Cigars, Cigarettes 2nd Hand Smoke Exposure: No Recent Foreign Travel: No Contact w/Someone Who Travel: No Recent Infectious Disease Expo: No Recent Hopitalizations: No Physical Abuse: No Sexual Abuse: No Mistreated: No Fear: No Immunizations Up To Date Tetanus Booster (TDap): Unknown PED Vaccines UTD: No Date of Pneumonia Vaccine: Nov 22, 2018 Date of Influenza Vaccine: Sep 22, 2018 Seasonal Allergies Seasonal Allergies: Yes Past Medical History Surgeries: Yes (LITHOTRIPSY;LUMBAR SURGERY X 4;BMT'S;EGD WITH ESOPHAGEAL DILAT ION;) Cardiac, Coronary Stent, Ear Surgery, Gallbladder, Orthopedic, Renal Respiratory: Yes Chronic Bronchitis, Sleep Apnea Currently Using CPAP: No (NON-COMPLIANT WITH CPAP USE) Currently Using BIPAP: No Cardiac: Yes (CARDIAC STENT (AORTA) X 1; DVT'S IN ARMS;CAROTID DISEASE) Chronic Edema/Swelling, Coronary Artery Disease, Deep Vein Thrombosis, High Cholesterol, Hypertension Neurological: Yes (NEUROPATHY IN HANDS AND FEET) Headaches /Migraines, Neuropathy 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 Disorders: No 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 STRICTURE;GASTROPARESIS;CHRONIC NVD/ABD PAIN) Gastroesophageal Reflux, Diverticulosis, Esophagitis, Irritable Bowel Musculoskeletal: Yes (CHRONIC GENERALIZED PAIN, CHRONIC BILAT SHOULDER PAIN, CHRONIC NECK PAIN) Degenerate Disk Disease, Fibromyalgia, Chronic Back Pain Endocrine: Yes (NON-COMPLIANT;MULTIPLE EPISODES OF DKA-EASILY CONTROLLED ON INSULIN IN HOSP) Diabetes, Insulin dep HEENT: Yes (GLASSES; S/P BMT'S) Chronic Ear Infection Loss of Vision: Bilateral Hearing Impairment: Hard of Hearing Cancer: No Psychosocial: Yes Anxiety Integumentary: Yes Psoriasis Blood Disorders: No Adverse Reaction/Blood Tranf: No (HAS HAD BLOOD WITH NO REACTION) Family Medical History Cancer of mouth 19 FATHER ( of esophogeal cancer.) Cardiovascular disease 19 MOTHER G8 BROTHER Completed stroke 19 FATHER G8 BROTHER Diabetes mellitus G8 BROTHER FH: lung cancer 19 MOTHER Hypertension 19 FATHER Kidney disease 19 FATHER Myocardial infarction 19 MOTHER G8 BROTHER Respiratory disorder No Family History of: AIDS CAD Over 55 Years Old, CVA, Diabetes, GI Disease, Renal Disease PSH: -LINQ DEVICE PLACED 11/09/19 FOR REPORTED PALPITATIONS X 6 MONTHS, SINCE PERCOCET WAS DC'D -MULTIPLE CARDIAC CATHS--STENT X 1 TO LAD 07/13/15. LAST CATH 01/18/19--NO INTERVENTION -LUMBAR FUSION X 3-12/2002, 04/2007 AND 05/2007 -LUMBAR DISCECTOMY 10/2000--? LAMINECTOMY ? -CERVICAL SPINE FUSION 11/2006 -CHOLECYSTECTOMY 1983 -BMT'S -LITHOTRIPSY AND RIGHT URETERAL STENT -EGD'S WITH ESOPHAGEAL DILATION -COLONOSCOPIES-LAST ONE 03/08/19 -PORT RIGHT CHEST Physical Exam Vital Signs Vital Signs - First Documented 12/15/19 12/16/19 23:51 02:46 Temp 36.8 Pulse 98 Resp 18 B/P (MAP) 105/72 (83) Pulse Ox 98 O2 Delivery Room Air Capillary Refill : Less Than 3 Seconds Height, Weight, BMI Height: 5'1.00" Weight: 122lbs. 1.0oz. [id number]; 27.00 BMI Method:Estimated General Appearance: No Apparent Distress, WD/WN, Other (SLIGHTLY DROWSY, SPEECH SLIGHTLY THICK-TONGUED AT TIMES AND VOICE TRAILS OFF TO A MUMBLE AT END OF SENTENCES, AND SHE FALLS ASLEEP MID-SENTENCE --EASILY AWAKENED AND BEHAVIOR REPEATS ITSELF--APPEARS TO BE OVER-MEDICATED. PT WITH RANDOM MOVEMENTS OF ARMS/LEGS--THIS STOPS AT WILL AND WHEN TOLD TO HOLD STILL. 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 II- XII Norm as Tested Skin: Normal Color, Warm/Dry; No Rash Progress/Results/Core Measures Suspected Sepsis Recent Fever Within 48 Hours: No Infection Criteria Present: Suspected New Infection New/Unexplained Altered Menta: No Sepsis Screen: No Definite Risk SIRS Temperature: Pulse: 78 Respiratory Rate: 18 Laboratory Tests 12/16/19 00:30: White Blood Count 12.6H 12/16/19 04:50: White Blood Count 11.3H Blood Pressure 109 /54 Mean: 83 Laboratory Tests 12/16/19 00:30: Creatinine 1.98H, Platelet Count 274, Total Bilirubin 0.2 12/16/19 04:50: Creatinine 1.45H, Platelet Count 231, Total Bilirubin 0.2 Results/Orders Lab Results Laboratory Tests Test 12/16/19 00:23 12/16/19 00:30 12/16/19 01:20 12/16/19 01:56 Range/Units Glucometer 310 H 70-110 MG/DL White Blood Count 12.6 H 4.3-11.0 10^3/uL Red Blood Count 4.32 L 4.35-5.85 10^6/uL Hemoglobin 13.0 11.5-16.0 G/DL Hematocrit 36 35-52 % Mean Corpuscular Volume 84 80-99 FL Mean Corpuscular Hemoglobin 30 25-34 PG Mean Corpuscular Hemoglobin Concent 36 32-36 G/DL Red Cell Distribution Width 13.1 10.0-14.5 % Platelet Count 274 130-400 10^3/uL Mean Platelet Volume 11.0 H 7.4-10.4 FL Neutrophils (%) (Auto) 57 42-75 % Lymphocytes (%) (Auto) 34 12-44 % Monocytes (%) (Auto) 5 0-12 % Eosinophils (%) (Auto) 3 0-10 % Basophils (%) (Auto) 1 0-10 % Neutrophils # (Auto) 7.2 1.8-7.8 X 10^3 Lymphocytes # (Auto) 4.2 H 1.0-4.0 X 10^3 Monocytes # (Auto) 0.6 0.0-1.0 X 10^3 Eosinophils # (Auto) 0.4 H 0.0-0.3 10^3/uL Basophils # (Auto) 0.1 0.0-0.1 10^3/uL Sodium Level 133 L 135-145 MMOL/L Potassium Level 4.2 3.6-5.0 MMOL/L Chloride Level 101 98-107 MMOL/L Carbon Dioxide Level 18 L 21-32 MMOL/L Anion Gap 14 5-14 MMOL/L Blood Urea Nitrogen 33 H 7-18 MG/DL Creatinine 1.98 H 0.60-1.30 MG/DL Estimat Glomerular Filtration Rate 26 BUN/Creatinine Ratio 17 Glucose Level 318 H 70-105 MG/DL Calcium Level 9.0 8.5-10.1 MG/DL Corrected Calcium 9.0 8.5-10.1 MG/DL Magnesium Level 1.7 1.6-2.4 MG/DL Total Bilirubin 0.2 0.1-1.0 MG/DL Aspartate Amino Transf (AST/SGOT) 8 5-34 U/L Alanine Aminotransferase (ALT/SGPT) 7 0-55 U/L Alkaline Phosphatase 107 40-136 U/L Total Protein 6.9 6.4-8.2 GM/DL Albumin 4.0 3.2-4.5 GM/DL Amylase Level 51 25-125 U/L Lipase 15 8-78 U/L Serum Alcohol < 10 <10 MG/DL Urine Color YELLOW Urine Clarity CLEAR Urine pH 5.0 5-9 Urine Specific [place] >=1.030 1.016-1.022 Urine Protein 2+ H NEGATIVE Urine Glucose (UA) 2+ H NEGATIVE Urine Ketones NEGATIVE NEGATIVE Urine Nitrite NEGATIVE NEGATIVE Urine Bilirubin NEGATIVE NEGATIVE Urine Urobilinogen 0.2 < = 1.0 MG/DL Urine Leukocyte Esterase NEGATIVE NEGATIVE Urine RBC (Auto) NEGATIVE NEGATIVE Urine RBC NONE /HPF Urine WBC NONE /HPF Urine Squamous Epithelial Cells 2-5 /HPF Urine Crystals NONE /LPF Urine Bacteria TRACE /HPF Urine Casts PRESENT /LPF Urine Hyaline Casts 10-25 H /LPF Urine Mucus MODERATE H /LPF Urine Culture Indicated NO Urine Opiates Screen NEGATIVE NEGATIVE Urine Oxycodone Screen NEGATIVE NEGATIVE Urine Methadone Screen NEGATIVE NEGATIVE Urine Propoxyphene Screen NEGATIVE NEGATIVE Urine Barbiturates Screen NEGATIVE NEGATIVE Ur Tricyclic Antidepressants Screen NEGATIVE NEGATIVE Urine Phencyclidine Screen NEGATIVE NEGATIVE Urine Amphetamines Screen NEGATIVE NEGATIVE Urine Methamphetamines Screen NEGATIVE NEGATIVE Urine Benzodiazepines Screen NEGATIVE NEGATIVE Urine Cocaine Screen NEGATIVE NEGATIVE Urine Cannabinoids Screen NEGATIVE NEGATIVE Blood Gas Puncture Site LEFT RADIAL Blood Gas Patient Temperature 36.8 Arterial Blood pH 7.35 L 7.37-7.43 Arterial Blood Partial Pressure CO2 34 L 35-45 MMHG Arterial Blood Partial Pressure O2 93 79-93 MMHG Arterial Blood HCO3 19 L 23-27 MMOL/L Arterial Blood Total CO2 19.5 L 21.0-31.0 MMOL/L Arterial Blood Oxygen Saturation 97 94-100 % Arterial Blood Base Excess -6.1 L -2.5-2.5 MMOL/L Antonio Test YES-POS Blood Gas Ventilator Setting NO Blood Gas Inspired Oxygen ROOM AIR Test 12/16/19 02:31 12/16/19 03:05 12/16/19 04:34 12/16/19 04:50 Range/Units Glucometer 57 *L 118 H 96 70-110 MG/DL White Blood Count 11.3 H 4.3-11.0 10^3/uL Red Blood Count 3.94 L 4.35-5.85 10^6/uL Hemoglobin 11.8 11.5-16.0 G/DL Hematocrit 33 L 35-52 % Mean Corpuscular Volume 85 80-99 FL Mean Corpuscular Hemoglobin 30 25-34 PG Mean Corpuscular Hemoglobin Concent 35 32-36 G/DL Red Cell Distribution Width 13.0 10.0-14.5 % Platelet Count 231 130-400 10^3/uL Mean Platelet Volume 10.7 H 7.4-10.4 FL Neutrophils (%) (Auto) 62 42-75 % Lymphocytes (%) (Auto) 28 12-44 % Monocytes (%) (Auto) 6 0-12 % Eosinophils (%) (Auto) 3 0-10 % Basophils (%) (Auto) 1 0-10 % Neutrophils # (Auto) 7.0 1.8-7.8 X 10^3 Lymphocytes # (Auto) 3.2 1.0-4.0 X 10^3 Monocytes # (Auto) 0.7 0.0-1.0 X 10^3 Eosinophils # (Auto) 0.3 0.0-0.3 10^3/uL Basophils # (Auto) 0.1 0.0-0.1 10^3/uL Sodium Level 137 135-145 MMOL/L Potassium Level 4.1 3.6-5.0 MMOL/L Chloride Level 110 H 98-107 MMOL/L Carbon Dioxide Level 18 L 21-32 MMOL/L Anion Gap 9 5-14 MMOL/L Blood Urea Nitrogen 29 H 7-18 MG/DL Creatinine 1.45 H 0.60-1.30 MG/DL Estimat Glomerular Filtration Rate 37 BUN/Creatinine Ratio 20 Glucose Level 104 70-105 MG/DL Calcium Level 8.2 L 8.5-10.1 MG/DL Corrected Calcium 8.6 8.5-10.1 MG/DL Total Bilirubin 0.2 0.1-1.0 MG/DL Aspartate Amino Transf (AST/SGOT) 9 5-34 U/L Alanine Aminotransferase (ALT/SGPT) 6 0-55 U/L Alkaline Phosphatase 90 40-136 U/L Total Protein 6.0 L 6.4-8.2 GM/DL Albumin 3.5 3.2-4.5 GM/DL My Orders Orders - PURA PIÑA DO Ua Culture If Indicated (12/16/19 00:02) Cbc With Automated Diff (12/16/19 00:02) Comprehensive Metabolic Panel (12/16/19 00:02) Magnesium (12/16/19 00:02) Alcohol (12/16/19 00:02) Amylase (12/16/19 00:02) Drug Screen Stat (Urine) (12/16/19 00:02) Lipase (12/16/19 00:02) Ed Iv/Invasive Line Start (12/16/19 00:03) Ns Iv 1000 Ml (Sodium Chloride 0.9%) (12/16/19 00:03) Ed Iv/Invasive Line Start (12/16/19 00:02) Monitor-Rhythm Ecg Trace Only (12/16/19 00:02) Catheter(Urinary) Insert & Ass 03,15 (12/16/19 00:02) Accucheck Stat ONCE (12/16/19 00:02) Insulin (Regular) Human (Humulin R (Per (12/16/19 00:45) Arterial Blood Gas (12/16/19 01:56) Ed Iv/Invasive Line Start (12/16/19 01:05) Ns Iv 1000 Ml (Sodium Chloride 0.9%) (12/16/19 01:05) Accucheck Stat ONCE (12/16/19 01:36) D50w (Emergency) Syringe (Dextrose 50% 5 (12/16/19 02:45) Accucheck Stat ONCE (12/16/19 03:05) Medications Given in ED Vital Signs/I&O 12/16/19 12/16/19 12/16/19 12/16/19 07:00 08:00 08:08 10:50 Temp 36.4 36.4 Pulse 77 77 77 Resp 16 16 B/P (MAP) 170/75 (106) 130/75 Pulse Ox 97 97 97 O2 Delivery Room Air Room Air Room Air Capillary Refill : Less Than 3 Seconds Blood Pressure Mean: 83 Point of Care Testing Finger Stick Blood Glucose: 118 Blood Glucose Action Taken: DR. PIÑA NOTIFIED. Progress Note : Progress Note PT MAKING MULTIPLE DEMANDS AND IS VERY MANIPULATIVE THROUGHOUT ER STAY--WANTS PHENERGAN + BENADRYL AND "SOMETHING FOR PAIN" FOR HER CHRONIC SHOULDER PAIN, ADVISED THAT I WOULD NOT BE GIVING ANY NARCOTICS FOR THIS CHRONIC PAIN COMPLAINT. ALSO ADVISED THAT SHE REPORTED THAT SHE JUST TOOK BENADRYL PRIOR TO ARRIVAL, AND WOULD NOT BE GIVING HER ANY MORE AT THIS TIME, AND NO PHENERGAN SHE IS NOT CURRENTLY COMPLAINING OF NAUSEA NO DETERIORATION IN PT'S CONDITION DURING ER STAY. Departure Communication (Admissions) [phone]--ATTEMPTING TO CONTACT DR. BRADSHAW, HOSPITALIST, MESSAGE LEFT ON CELL PHONE [phone]--SPOKE WITH DR. BRADSHAW, ACCEPTS PT FOR ADMIT Impression Primary Impression: Mild DKA Additional Impressions: Diabetes mellitus, insulin dependent (IDDM), uncontrolled MILD HYPONATREMIA Chronic Nausea and Vomiting CHRONIC PAIN COMPLAINTS RECENT DISCONTINUATION OF SUBOXONE DEHYDRATION Acute on chronic renal failure HX OF NONCOMPLIANCE Disposition: ADMITTED INPATIENT Condition: Improved Admissions Decision to Admit Reason: Admit from ER (General) Decision to Admit/Date: Dec 16, 2019 Time/Decision to Admit Time: 01:50 Departure-Patient Inst. Referrals: CINDY CALABRESE DO (PCP) Primary Care Physician Scripts Promethazine HCl (Promethazine Tablet) 25 Mg Tablet 25 MG PO Q6H PRN for NAUSEA/VOMITING for 7 Days, #20 TAB 0 Refills Prov: JUAN DAVID BRADSHAW MD 12/16/19 Insulin Detemir (Levemir Flextouch) 100 Unit/1 Ml Insuln.pen 35 UNIT SQ DAILY for 30 Days, #2 EA TAKES 35 UNITS LEVEMIR AM AND TAKES 15 UNITS AT HS Prov: JUAN DAVID BRADSHAW MD 12/16/19 PURA PIÑA DO Dec 16, 2019 05:29
[2019-12-16] MEDS ORDERED: inSUlin ASPART (NovoLOG) 1 UNIT/0.01 ML (CHARGE PER UNIT) SC SCH (06:00)
--- NOTE | 2019-12-16 06:53 | NUR ---
Attempted to do Med Rec with patient upon arrival on 4th floor and at 0600 but patient stated that she is too tired to remember her all her medications. Pt stated that she will do it later in the day and just wants to get some rest.
[2019-12-16 08:00] VITALS: BP 170/75
[2019-12-16] MEDS ORDERED: INSU100I29 SQ ×2 (08:16)
--- NOTE | 2019-12-16 08:17 | NUR ---
HOME MED LIST WENT OVER WITH PT -- PT VOICED SHE IS NOW GOING TO [facility] -- AND THAT HER PAIN MEDS WERE STOPPED -- AND WAS ON A MED FOR ADDICTION -- SHE VOICED IT DID NOT WORK AND WS NO LONGER TAKING
[2019-12-16] MEDS ORDERED: PANTOPRAZOLE 40 MG (PROTONIX) VIAL IV SCH (09:00)
[2019-12-16] MEDS ORDERED: PROM25TA14 PO (09:35)
[2019-12-16 10:50] VITALS: BP 130/75
--- NOTE | 2019-12-16 11:37 | Discharge Summary ---
Discharge Summary Hospital Course Was the Problem List Reviewed?: Yes Final Diagnosis: acute kidney injury superimposed on chronic kidney Hospital Course Date of Admission: Dec 16, 2019 at 01:50 Admission Diagnosis : acute kidney injury superimposed on chronic kidney disease Family Physician/Provider: Cindy Calabrese DO Date of Discharge: 12/16/19 Discharge Diagnosis: acute kidney injury superimposed on chronic kidney disease Hospital Course: Itzel Urbano is a 59-year-old female who presented to the emergency room with multiple complaints and was admitted with acute kidney injury superimposed on chronic kidney disease. She received IV fluids and her kidney function returned to her baseline. She has a chronic history of nausea and vomiting. She reports that this is unchanged. She also had a some abnormal movements or shaking, which were resolved upon the time of my examination. Her blood sugar was elevated to in the 300s on arrival and improved with insulin administration. She was discharged with a refill of her Phenergan which she takes for her nausea and vomiting. She should follow-up with Dr. Monroy in about a week. Labs and Pending Lab Test: Laboratory Tests 12/16/19 00:23: Glucometer 310H 12/16/19 00:30: White Blood Count 12.6H, Red Blood Count 4.32L, Hemoglobin 13.0, Hematocrit 36, Mean Corpuscular Volume 84, Mean Corpuscular Hemoglobin 30, Mean Corpuscular Hemoglobin Concent 36, Red Cell Distribution Width 13.1, Platelet Count 274, Mean Platelet Volume 11.0H, Neutrophils (%) (Auto) 57, Lymphocytes (%) (Auto) 34, Monocytes (%) (Auto) 5, Eosinophils (%) (Auto) 3, Basophils (%) (Auto) 1, Neutrophils # (Auto) 7.2, Lymphocytes # (Auto) 4.2H, Monocytes # (Auto) 0.6, Eosinophils # (Auto) 0.4H, Basophils # (Auto) 0.1, Sodium Level 133L, Potassium Level 4.2, Chloride Level 101, Carbon Dioxide Level 18L, Anion Gap 14, Blood Urea Nitrogen 33H, Creatinine 1.98H, Estimat Glomerular Filtration Rate 26, BUN/Creatinine Ratio 17, Glucose Level 318H, Calcium Level 9.0, Corrected Calcium 9.0, Magnesium Level 1.7, Total Bilirubin 0.2, Aspartate Amino Transf (AST/SGOT) 8, Alanine Aminotransferase (ALT/SGPT) 7, Alkaline Phosphatase 107, Total Protein 6.9, Albumin 4.0, Amylase Level 51, Lipase 15, Serum Alcohol < 10 12/16/19 01:20: Urine Color YELLOW, Urine Clarity CLEAR, Urine pH 5.0, Urine Specific [place] >=1.030, Urine Protein 2+H, Urine Glucose (UA) 2+H, Urine Ketones NEGATIVE, Urine Nitrite NEGATIVE, Urine Bilirubin NEGATIVE, Urine Urobilinogen 0.2, Urine Leukocyte Esterase NEGATIVE, Urine RBC (Auto) NEGATIVE, Urine RBC NONE, Urine WBC NONE, Urine Squamous Epithelial Cells 2-5, Urine Crystals NONE, Urine Bacteria TRACE, Urine Casts PRESENT, Urine Hyaline Casts 10-25H, Urine Mucus MODERATEH, Urine Culture Indicated NO, Urine Opiates Screen NEGATIVE, Urine Oxycodone Screen NEGATIVE, Urine Methadone Screen NEGATIVE, Urine Propoxyphene Screen NEGATIVE, Urine Barbiturates Screen NEGATIVE, Ur Tricyclic Antidepres sants Screen NEGATIVE, Urine Phencyclidine Screen NEGATIVE, Urine Amphetamines Screen NEGATIVE, Urine Methamphetamines Screen NEGATIVE, Urine Benzodiazepines Screen NEGATIVE, Urine Cocaine Screen NEGATIVE, Urine Cannabinoids Screen NEGATIVE 12/16/19 01:56: Blood Gas Puncture Site LEFT RADIAL, Blood Gas Patient Temperature 36.8, Arterial Blood pH 7.35L, Arterial Blood Partial Pressure CO2 34L, Arterial Blood Partial Pressure O2 93, Arterial Blood HCO3 19L, Arterial Blood Total CO2 19.5L, Arterial Blood Oxygen Saturation 97, Arterial Blood Base Excess -6.1L, Antonio Test YES-POS, Blood Gas Ventilator Setting NO, Blood Gas Inspired Oxygen ROOM AIR 12/16/19 02:31: Glucometer 57*L 12/16/19 03:05: Glucometer 118H 12/16/19 04:34: Glucometer 96 12/16/19 04:50: White Blood Count 11.3H, Red Blood Count 3.94L, Hemoglobin 11.8, Hematocrit 33L, Mean Corpuscular Volume 85, Mean Corpuscular Hemoglobin 30, Mean Corpuscular Hemoglobin Concent 35, Red Cell Distribution Width 13.0, Platelet Count 231, Mean Platelet Volume 10.7H, Neutrophils (%) (Auto) 62, Lymphocytes (%) (Auto) 28, Monocytes (%) (Auto) 6, Eosinophils (%) (Auto) 3, Basophils (%) (Auto) 1, Neutrophils # (Auto) 7.0, Lymphocytes # (Auto) 3.2, Monocytes # (Auto) 0.7, Eosinophils # (Auto) 0.3, Basophils # (Auto) 0.1, Sodium Level 137, Potassium [place] 4.1, Chloride Level 110H, Carbon Dioxide Level 18L, Anion Gap 9, Blood Urea Nitrogen 29H, Creatinine 1.45H, Estimat Glomerular Filtration Rate 37, BUN/Creatinine Ratio 20, Glucose Level 104, Calcium Level 8.2L, Corrected Calcium 8.6, Total Bilirubin 0.2, Aspartate Amino Transf (AST/SGOT) 9, Alanine Aminotransferase (ALT/SGPT) 6, Alkaline Phosphatase 90, Total Protein 6.0L, Albumin 3.5 Home Meds Active Promethazine Tablet (Promethazine HCl) 25 Mg Tablet 25 Mg PO Q6H PRN 7 Days Levemir Flextouch (Insulin Detemir) 100 Unit/1 Ml Insuln.pen 35 Unit SQ DAILY 30 Days TAKES 35 UNITS LEVEMIR AM AND TAKES 15 UNITS AT HS Reported Levemir Flextouch (Insulin Detemir) 100 Unit/1 Ml Insuln.pen 15 Unit SQ HS 1 D ays Melatonin 5 Mg Capsule 5 Mg PO HS PRN Humalog Kwikpen (Insulin Lispro) 100 Unit/1 Ml Insuln.pen SQ TIDAC LAST FILLED MARCH 2018 Mirtazapine 15 Mg Tablet 15 Mg PO HS Omeprazole 20 Mg Capsule. 20 Mg PO DAILY Gabapentin 800 Mg Tablet 800 Mg PO DAILY PRN Gabapentin 800 Mg Tablet 1,600 Mg PO HS TAKES 2 (800MG) TABLETS Tradjenta (Linagliptin) 5 Mg Tablet 5 Mg PO DAILY LAST FILLED #30 02-01-19 Atorvastatin Calcium 40 Mg Tablet 40 Mg PO HS LAST FILLED #30 11-29-18 Aspirin EC (Aspirin) 81 Mg Tablet. 81 Mg PO DAILY Assessment/Pt Instructions take medications as prescribed. Refill has been sent for your antinausea medicine. Follow up with Dr. Calabrese in about a week. Return with intractable nausea and vomiting, or if you feel like you're getting worse. Discharge Instructions Discharge Diet: No Restrictions Activity as Tolerated: Yes Discharge Physical Examination General Appearance: Alert, Oriented X3, Cooperative, No Acute Distress HEENT: Atraumatic, PERRLA, EOMI, Mucous Memb Moist/[place] Respiratory: Clear to Auscultation, Normal Air Movement Cardiovascular: Regular Rate, Normal S1, Normal S2, No Murmurs Abdominal: Normal Bowel Sounds, Soft, No Tenderness Extremities: No Edema, No Tenderness/Swelling Skin: No Rashes, No Significant Lesion Neuro: Normal Speech, Normal Tone Psych/Mental Status: Mental Status NL, Mood NL Allergies: Coded Allergies: ketorolac (Verified Allergy, Severe, ANAPHYLAXIS, PT TAKES ASA AT HOME, 03/06/19) ondansetron (Verified Allergy, Intermediate, RASH, 03/06/19) RASH/ HIVES scopolamine (Verified Allergy, Mild, Rash, 03/21/19) exenatide (Verified Allergy, Unknown, NAUSEA, 03/06/19) NON STOP VOMITING latex (Verified Allergy, Unknown, RASH, 03/06/19) metoclopramide (Verified Allergy, Unknown, RESTLESS LEGS, 03/06/19) erythromycin base (Verified Adverse Reaction, Unknown, 03/21/19) Copy Copies To 1: CINDY CALABRESE DO Discharge Summary Date of Admission Dec 16, 2019 at 01:50 Date of Discharge Discharge Date: Dec 16, 2019 Discharge Time: 11:36 Admission Diagnosis acute kidney injury superimposed on chronic kidney disease Discharge Diagnosis acute kidney injury superimposed on chronic kidney disease (1) Acute kidney injury superimposed on chronic kidney disease Status: Acute Clinical Quality Measures DVT/VTE Risk/Contraindication: Risk Factor Score Per Nursin RFS Level Per Nursing on Admit: 4+=Very High JUAND AVID BRADSHAW MD Dec 16, 2019 11:36
[2019-12-17] MEDS ORDERED: CHOL200025 PO (09:43)
[2019-12-17] MEDS ORDERED: IRON-17 PO (09:43)
[2019-12-17] MEDS ORDERED: ACET-93 PO (09:43)
[2019-12-17] MEDS ORDERED: TMSL.4C PO (09:43)
[2019-12-17] MEDS ORDERED: LORA10TA7 PO (09:43)
[2019-12-17] MEDS ORDERED: DEXT1DRO7 OP (09:43)
[2019-12-17] MEDS ORDERED: FURO-124 PO (09:43)
[2019-12-17] MEDS ORDERED: CYAN100088 PO (09:43)
[2019-12-17] MEDS ORDERED: OXYC1TAB87 PO (09:43)
[2019-12-17] MEDS ORDERED: CLOP75TA69 PO (09:43)
[2019-12-17] MEDS ORDERED: POTA10CA43 PO (09:43)
[2019-12-17] MEDS ORDERED: FLUT9.9S NS (09:43)
[2019-12-17] MEDS ORDERED: MIDO5TAB3 PO (09:43)
[2019-12-17] MEDS ORDERED: FINA5TAB6 PO (09:43)
[2019-12-17] MEDS ORDERED: BISA-65 PO (09:43)
[2019-12-17] MEDS ORDERED: PANT40TA2 PO (09:43)
[2019-12-17] MEDS ORDERED: MULT-178 PO (09:43)
[2019-12-17] MEDS ORDERED: MIRT15TA6 PO (10:19)
[2019-12-17] MEDS ORDERED: GABA800T10 PO (10:19)
[2019-12-17] MEDS ORDERED: LISI-552 PO (10:19)
[2019-12-17] MEDS ORDERED: INSU100V5 SQ ×2 (10:19)
[2019-12-17] MEDS ORDERED: OMEP20TA33 PO (10:19)
[2019-12-17] MEDS ORDERED: LINA5TAB PO (10:19)
== END 2019-12-16 10:50 | disposition home or self-care (01) ==
LOC: ER 23:57 → EDUNIT# 23:57 → INTOOBSV 12-16 01:50 → 4TH 12-16 01:50
PROVIDERS: ADMIT Internal Medicine; ATTEND Internal Medicine
DX: I12.9 Hypertensive chronic kidney disease with stage 1 through stage 4 chronic kidney disease, or unspecified chronic kidney disease (principal); N18.9 Chronic kidney disease, unspecified; E11.10 Type 2 diabetes mellitus with ketoacidosis without coma; E11.40 Type 2 diabetes mellitus with diabetic neuropathy, unspecified; I25.10 Atherosclerotic heart disease of native coronary artery without angina pectoris; I82.409 Acute embolism and thrombosis of unspecified deep veins of unspecified lower extremity; G47.30 Sleep apnea, unspecified; J42 Unspecified chronic bronchitis; G43.909 Migraine, unspecified, not intractable, without status migrainosus; E86.0 Dehydration; E11.22 Type 2 diabetes mellitus with diabetic chronic kidney disease; E78.00 Pure hypercholesterolemia, unspecified; K21.0 Gastro-esophageal reflux disease with esophagitis; M79.7 Fibromyalgia; G89.29 Other chronic pain; M54.9 Dorsalgia, unspecified; F41.9 Anxiety disorder, unspecified; Z88.1 Allergy status to other antibiotic agents; Z91.040 Latex allergy status; Z79.4 Long term (current) use of insulin; Z85.818 Personal history of malignant neoplasm of other sites of lip, oral cavity, and pharynx; Z91.14 Patient's other noncompliance with medication regimen; Z82.49 Family history of ischemic heart disease and other diseases of the circulatory system; Z83.3 Family history of diabetes mellitus; Z80.1 Family history of malignant neoplasm of trachea, bronchus and lung
CPT/HCPCS: 36415; 36600; 80053; 80306; 80320; 81000; 82150; 82805; 82962; 83690; 83735; 85025; 93041; 96361; 96374; 96375

== ENCOUNTER 2019-12-26 16:07 | Emergency (ER) | payer MEDICARE ==
[~2019-12-26] VITALS: Ht 149 cm; Wt 59.0 kg
[~2019-12-26 16:07] MED LIST changes: +ACET-93 PO; +ACET325T38 PO; +BISA-65 PO; +CHOL200025 PO; +CYAN100088 PO; +DEXT1DRO7 OP; +FINA5TAB6 PO; +FLUT9.9S NS; +FURO-124 PO; +IRON-17 PO; +LISI-552 PO; +LISI10TA2 PO; +LORA10TA7 PO; +MELA5TAB21 PO; +MIDO5TAB3 PO; +MULT-178 PO; +POTA10CA43 PO; +TMSL.4C PO
--- NOTE | 2019-12-26 16:38 | NUR ---
NO CHANGE IN MEDS
[2019-12-26 16:40] LABS: BASOPHILS # (AUTO) 0.1 10^3/uL (0.0-0.1); BASOPHILS % (AUTO) 0 % (0-10); EOSINOPHILS # (AUTO) 0.1 10^3/uL (0.0-0.3); EOSINOPHILS % (AUTO) 1 % (0-10); HEMATOCRIT 38 % (35-52); HEMOGLOBIN 13.2 G/DL (11.5-16.0); LYMPHOCYTES # (AUTO) 3.8 X 10^3 (1.0-4.0); LYMPHOCYTES % (AUTO) 27 % (12-44); MEAN CORPUSCULAR HEMOGLOBIN 30 PG (25-34); MEAN CORPUSCULAR HGB CONC 35 G/DL (32-36); MEAN CORPUSCULAR VOLUME 87 FL (80-99); MEAN PLATELET VOLUME 10.7 FL (7.4-10.4); MONOCYTES # (AUTO) 0.8 X 10^3 (0.0-1.0); MONOCYTES % (AUTO) 6 % (0-12); NEUTROPHILS # (AUTO) 9.7 X 10^3 (1.8-7.8); NEUTROPHILS % (AUTO) 67 % (42-75); PLATELET COUNT 308 10^3/uL (130-400); RED CELL DISTRIBUTION WIDTH 12.6 % (10.0-14.5); WHITE BLOOD COUNT 14.5 10^3/uL (4.3-11.0)
[2019-12-26] MEDS ORDERED: diphenhydrAMINE 50 MG/ML INJ (BENADRYL) IVP ONE (16:45)
[2019-12-26] MEDS ORDERED: NS IV 1000 ML 1,000 ML IV SCH ×3 (16:45→19:15)
[2019-12-26] MEDS ORDERED: PROMETHAZINE INJ 25 MG/ML (PHENERGAN) AMP IVP ONE (16:45)
[2019-12-26] MEDS ORDERED: inSUlin (REGULAR) HUMAN 1 UNIT/0.01 ML (CHARGE PER UNIT) IV ONE (16:45)
[2019-12-26 16:51] LABS: ALBUMIN 4.1 GM/DL (3.2-4.5); BILIRUBIN,TOTAL 0.5 MG/DL (0.1-1.0); CALCIUM 9.3 MG/DL (8.5-10.1); CREATININE SERUM 1.13 MG/DL (0.60-1.30); TOTAL PROTEIN 6.8 GM/DL (6.4-8.2)
[2019-12-26 17:21] LABS: LYMPHOCYTES % (MANUAL) 23 %; NEUTROPHILS % (MANUAL) 69 %
[2019-12-26 17:22] LABS: MONOCYTES % (MANUAL) 8 %; RBC MORPH NORMAL
--- NOTE | 2019-12-26 17:30 | NUR ---
FIRST LITER OF FLUIDS FROM EMS INFUSED
--- NOTE | 2019-12-26 17:52 | ED General ---
General Chief Complaint: Glucose Problems Stated Complaint: HIGH BLOOD SUGAR Nursing Triage Note: PT ARRIVED PER EMS, PT CO OF ELEVATED BS. NAUSEA, VOMITING. EMS REPORTS BS TOO HIGH TO READ. Nursing Sepsis Screen: No Definite Risk Source of Information: Patient Exam Limitations: No Limitations History of Present Illness Date Seen by Provider: Dec 26, 2019 Time Seen by Provider: 16:30 Initial Comments Nausea vomiting for several days. Blood sugar too high to read for EMS Timing/Duration: 3-4 Days Severity: Moderate Associated Systoms: Nausea/Vomiting Allergies and Home Medications Allergies Coded Allergies: ketorolac (Verified Allergy, Severe, ANAPHYLAXIS, PT TAKES ASA AT HOME, 03/06/19) ondansetron (Verified Allergy, Intermediate, RASH, 03/06/19) RASH/ HIVES scopolamine (Verified Allergy, Mild, Rash, 03/21/19) exenatide (Verified Allergy, Unknown, NAUSEA, 03/06/19) NON STOP VOMITING latex (Verified Allergy, Unknown, RASH, 03/06/19) metoclopramide (Verified Allergy, Unknown, RESTLESS LEGS, 03/06/19) erythromycin base (Verified Adverse Reaction, Unknown, 03/21/19) Home Medications Acetaminophen 325 Mg Tablet, 650 MG PO Q8H PRN for PAIN-MILD (1-4), (Reported) Aspirin 81 Mg Tablet.dr, 81 MG PO DAILY, (Reported) Gabapentin 800 Mg Tablet, 1,600 MG PO HS, (Reported) Insulin Determir 1,000 Units/10 Ml Soln, 35 UNITS SQ DAILY, (Reported) Insulin Determir 1,000 Units/10 Ml Soln, 15 UNITS SQ HS, (Reported) Insulin Lispro 100 Unit/1 Ml Insuln.pen, UNITS SQ TIDWM SLIDING SCALE, (Reported) Lisinopril 10 Mg Tablet, 10 MG PO DAILY, (Reported) Melatonin 5 Mg Tab.ir.er, 5 MG PO HS PRN for SLEEP, (Reported) Mirtazapine 15 Mg Tablet, 15 MG PO HS, (Reported) Omeprazole Magnesium 20 Mg Tablet.dr, 20 MG PO DAILY, (Reported) Patient Home Medication List Home Medication List Reviewed: Yes Review of Systems Review of Systems Constitutional: see HPI EENTM: see HPI Respiratory: no symptoms reported Cardiovascular: no symptoms reported Gastrointestinal: nausea, vomiting Genitourinary: no symptoms reported Musculoskeletal: no symptoms reported Skin: no symptoms reported Psychiatric/Neurological: No Symptoms Reported Past Baucjit-Vmoqpn-Ctslmp Hx Patient Social History Alcohol Use: Denies Use Number of Drinks Today: Alcohol Beverage of Choice: Wine Recreational Drug Use: Yes Drug of Choice: NARCOTIC ABUSE Smoking Status: Current Everyday Smoker Type Used: Cigars, Cigarettes Former Smoker, Quit: Nov 10, 2017 2nd Hand Smoke Exposure: No Recent Foreign Travel: No Contact w/Someone Who Travel: No Recent Infectious Disease Expo: No Recent Hopitalizations: Yes Physical Abuse: No Sexual Abuse: No Immunizations Up To Date Tetanus Booster (TDap): Unknown PED Vaccines UTD: No Date of Pneumonia Vaccine: Nov 06, 2019 Date of Influenza Vaccine: Nov 22, 2019 Seasonal Allergies Seasonal Allergies: Yes Past Medical History Surgeries: Yes (LITHOTRIPSY;LUMBAR SURGERY X 4;BMT'S;EGD WITH ESOPHAGEAL DILATION;) Cardiac, Coronary Stent, Ear Surgery, Gallbladder, Orthopedic, Renal Respiratory: Yes Chronic Bronchitis, Sleep Apnea Currently Using CPAP: No (NON-COMPLIANT WITH CPAP USE) Currently Using BIPAP: No Cardiac: Yes (CARDIAC STENT (AORTA) X 1; DVT'S IN ARMS;CAROTID DISEASE) Chronic Edema/Swelling, Coronary Artery Disease, Deep Vein Thrombosis, High Cholesterol, Hypertension Neurological: Yes (NEUROPATHY IN HANDS AND FEET) Headaches /Migraines, Neuropathy 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 Disorders: No 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 Disorders: Denies 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 STRICTURE;GASTROPARESIS;CHRONIC NVD/ABD PAIN) Gastroesophageal Reflux, Diverticulosis, Esophagitis, Irritable Bowel Musculoskeletal: Yes (CHRONIC GENERALIZED PAIN, CHRONIC BILAT SHOULDER PAIN, CHRONIC NECK PAIN) Degenerate Disk Disease, Fibromyalgia, Chronic Back Pain Endocrine: Yes (NON-COMPLIANT;MULTIPLE EPISODES OF DKA-EASILY CONTROLLED ON INSULIN IN HOSP) Diabetes, Insulin dep HEENT: Yes (GLASSES; S/P BMT'S) Chronic Ear Infection Loss of Vision: Bilateral Hearing Impairment: Hard of Hearing Cancer: No Psychosocial: Yes Anxiety Integumentary: Yes Psoriasis Blood Disorders: No Adverse Reaction/Blood Tranf: No (HAS HAD BLOOD WITH NO REACTION) Family Medical History Cancer of mouth 19 FATHER ( of esophogeal cancer.) Cardiovascular disease 19 MOTHER G8 BROTHER Completed stroke 19 FATHER G8 BROTHER Diabetes mellitus G8 BROTHER FH: lung cancer 19 MOTHER Hypertension 19 FATHER Kidney disease 19 FATHER Myocardial infarction 19 MOTHER G8 BROTHER Respiratory disorder No Family History of: AIDS CAD Over 55 Years Old, CVA, Diabetes, GI Disease, Renal Disease Physical Exam Vital Signs Vital Signs - First Documented 12/26/19 16:10 Temp 37.7 Pulse 90 Resp 18 B/P (MAP) 152/94 (113) Pulse Ox 97 Capillary Refill : Less Than 3 Seconds Height, Weight, BMI Height: 5'1.00" Weight: 122lbs. 1.0oz. [id number]; 26.00 BMI Method:Estimated General Appearance: No Apparent Distress, WD/WN, Chronically ill Eyes: Bilateral Eye Normal Inspection, Bilateral Eye PERRL HEENT: PERRL/EOMI, TMs Normal Respiratory: No Accessory Muscle Use, No Respiratory Distress Gastrointestinal: Non Tender, Soft Extremity: Normal Capillary Refill, Normal Inspection Neurologic/Psychiatric: Alert, Oriented x3 Skin: Normal Color, Warm/Dry Progress/Results/Core Measures Suspected Sepsis Recent Fever Within 48 Hours: No Infection Criteria Present: None New/Unexplained Altered Menta: No Sepsis Screen: No Definite Risk SIRS Temperature: Pulse: 90 Respiratory Rate: 18 Laboratory Tests 12/26/19 16:10: White Blood Count 14.5H Blood Pressure 152 /94 Mean: 113 Laboratory Tests 12/26/19 16:10: Creatinine 1.13, Platelet Count 308, Total Bilirubin 0.5 Results/Orders Lab Results Laboratory Tests Test 12/26/19 16:10 12/26/19 17:34 12/26/19 19:11 12/26/19 19:30 Range/Units White Blood Count 14.5 H 4.3-11.0 10^3/uL Red Blood Count 4.35 4.35-5.85 10^6/uL Hemoglobin 13.2 11.5-16.0 G/DL Hematocrit 38 35-52 % Mean Corpuscular Volume 87 80-99 FL Mean Corpuscular Hemoglobin 30 25-34 PG Mean Corpuscular Hemoglobin Concent 35 32-36 G/DL Red Cell Distribution Width 12.6 10.0-14.5 % Platelet Count 308 130-400 10^3/uL Mean Platelet Volume 10.7 H 7.4-10.4 FL Neutrophils (%) (Auto) 67 42-75 % Lymphocytes (%) (Auto) 27 12-44 % Monocytes (%) (Auto) 6 0-12 % Eosinophils (%) (Auto) 1 0-10 % Basophils (%) (Auto) 0 0-10 % Neutrophils # (Auto) 9.7 H 1.8-7.8 X 10^3 Lymphocytes # (Auto) 3.8 1.0-4.0 X 10^3 Monocytes # (Auto) 0.8 0.0-1.0 X 10^3 Eosinophils # (Auto) 0.1 0.0-0.3 10^3/uL Basophils # (Auto) 0.1 0.0-0.1 10^3/uL Neutrophils % (Manual) 69 % Lymphocytes % (Manual) 23 % Monocytes % (Manual) 8 % Blood Morphology Comment NORMAL Sodium Level 136 135-145 MMOL/L Potassium Level 4.0 3.6-5.0 MMOL/L Chloride Level 96 L 98-107 MMOL/L Carbon Dioxide Level 28 21-32 MMOL/L Anion Gap 12 5-14 MMOL/L Blood Urea Nitrogen 19 H 7-18 MG/DL Creatinine 1.13 0.60-1.30 MG/DL Estimat Glomerular Filtration Rate 49 BUN/Creatinine Ratio 17 Glucose Level 503 *H 70-105 MG/DL Calcium Level 9.3 8.5-10.1 MG/DL Corrected Calcium 9.2 8.5-10.1 MG/DL Total Bilirubin 0.5 0.1-1.0 MG/DL Aspartate Amino Transf (AST/SGOT) 7 5-34 U/L Alanine Aminotransferase (ALT/SGPT) 13 0-55 U/L Alkaline Phosphatase 95 40-136 U/L Total Protein 6.8 6.4-8.2 GM/DL Albumin 4.1 3.2-4.5 GM/DL Beta-Hydroxybutyrate (Chem panel) 0.50 H 0.00-0.27 MMOL/L Glucometer 259 H 209 H 70-110 MG/DL Urine Color YELLOW Urine Clarity CLEAR Urine pH 7.5 5-9 Urine Specific [place] 1.025 H 1.016-1.022 Urine Protein 3+ H NEGATIVE Urine Glucose (UA) 2+ H NEGATIVE Urine Ketones NEGATIVE NEGATIVE Urine Nitrite NEGATIVE NEGATIVE Urine Bilirubin NEGATIVE NEGATIVE Urine Urobilinogen 0.2 < = 1.0 MG/DL Urine Leukocyte Esterase NEGATIVE NEGATIVE Urine RBC (Auto) NEGATIVE NEGATIVE Urine RBC RARE /HPF Urine WBC NONE /HPF Urine Squamous Epithelial Cells 0-2 /HPF Urine Crystals NONE /LPF Urine Bacteria TRACE /HPF Urine Casts NONE /LPF Urine Mucus NEGATIVE /LPF Urine Culture Indicated NO My Orders Orders - JR MARIE APRN Beta Hydroxybutyrate (12/26/19 16:34) Cbc With Automated Diff (12/26/19 16:34) Comprehensive Metabolic Panel (12/26/19 16:34) Ed Iv/Invasive Line Start (12/26/19 16:34) Diphenhydramine Injection (Benadryl Inje (12/26/19 16:45) Ns Iv 1000 Ml (Sodium Chloride 0.9%) (12/26/19 16:45) Promethazine Injection (Phenergan Injec (12/26/19 16:45) Insulin (Regular) Human (Humulin R (Per (12/26/19 16:45) Manual Differential (12/26/19 16:10) Ua Culture If Indicated (12/26/19 17:40) Diphenhydramine Injection (Benadryl Inje (12/26/19 18:00) Ns Iv 1000 Ml (Sodium Chloride 0.9%) (12/26/19 18:00) Accucheck Stat ONCE (12/26/19 18:46) Ns Iv 1000 Ml (Sodium Chloride 0.9%) (12/26/19 19:15) Medications Given in ED Current Medications Medications Dose Ordered Sig/Jackie Route Start Time Stop Time Status Last Admin Dose Admin Diphenhydramine HCl 25 mg ONCE ONCE IV 12/26/19 18:00 12/26/19 18:01 DC 12/26/19 18:08 25 MG Diphenhydramine HCl 25 mg ONCE ONCE IVP 12/26/19 16:45 12/26/19 16:46 DC 12/26/19 16:45 25 MG Insulin Human Regular 10 unit ONCE ONCE IV 12/26/19 16:45 12/26/19 16:46 DC 12/26/19 16:46 10 UNIT Promethazine HCl 25 mg ONCE ONCE IVP 12/26/19 16:45 12/26/19 16:46 DC 12/26/19 16:45 25 MG Vital Signs/I&O 12/26/19 16:10 Temp 37.7 Pulse 90 Resp 18 B/P (MAP) 152/94 (113) Pulse Ox 97 Capillary Refill : Less Than 3 Seconds Blood Pressure Mean: 113 Point of Care Testing Finger Stick Blood Glucose: 259 Blood Glucose Action Taken: REPORT TO [facility] Departure Impression Primary Impression: Chronic Nausea and Vomiting Disposition: 01 HOME, SELF-CARE Condition: Stable Departure-Patient Inst. Decision time for Depature: 19:57 Referrals: CINDY CALABRESE DO (PCP/Family) Primary Care Physician Patient Instructions: NO INSTRUCTIONS GIVEN Add. Discharge Instructions: 1. Return to ER for any concerns 2. Take your insulin 3. Follow-up with your doctor next week All discharge instructions reviewed with patient and/or family. Voiced understanding. JR MARIE [employer] Dec 26, 2019 17:52
[2019-12-26] MEDS ORDERED: diphenhydrAMINE 50 MG/ML INJ (BENADRYL) IV ONE (18:00)
--- NOTE | 2019-12-26 18:21 | NUR ---
TOTAL OF 2L OF NS GIVEN ONE FROM EMS AND ONE FROM ED
--- NOTE | 2019-12-26 18:57 | NUR ---
Report recieved from Yudy, GONZALO
[2019-12-26 19:46] LABS: BILIRUBIN,URINE NEGATIVE (NEGATIVE); CLARITY,URINE CLEAR; COLOR,URINE YELLOW; GLUCOSE, URINE (UA) 2+ (NEGATIVE); KETONES,URINE NEGATIVE (NEGATIVE); LEUKOCYTE ESTERASE ,URINE NEGATIVE (NEGATIVE); NITRITE,URINE NEGATIVE (NEGATIVE); PH,URINE 7.5 (5-9); PROTEIN,URINE 3+ (NEGATIVE)
[2019-12-26 19:54] LABS: BACTERIA,URINE TRACE /HPF; RBC,URINE RARE /HPF; SQUAMOUS EPITHELIAL CELL,UR 0-2 /HPF
[2019-12-26 20:07] VITALS: BP 154/78
== END 2019-12-26 20:08 | disposition home or self-care (01) ==
LOC: EDUNIT# 16:07 → ER 16:16
DX: R11.2 Nausea with vomiting, unspecified (principal); I10 Essential (primary) hypertension; E11.40 Type 2 diabetes mellitus with diabetic neuropathy, unspecified; I25.10 Atherosclerotic heart disease of native coronary artery without angina pectoris; K21.0 Gastro-esophageal reflux disease with esophagitis; E78.00 Pure hypercholesterolemia, unspecified; E11.10 Type 2 diabetes mellitus with ketoacidosis without coma; F41.9 Anxiety disorder, unspecified; F17.210 Nicotine dependence, cigarettes, uncomplicated; F17.290 Nicotine dependence, other tobacco product, uncomplicated; Z95.5 Presence of coronary angioplasty implant and graft; Z88.6 Allergy status to analgesic agent; Z91.040 Latex allergy status; Z88.1 Allergy status to other antibiotic agents; Z88.8 Allergy status to other drugs, medicaments and biological substances; Z79.82 Long term (current) use of aspirin; Z79.4 Long term (current) use of insulin; Z91.19 Patient's noncompliance with other medical treatment and regimen; Z80.1 Family history of malignant neoplasm of trachea, bronchus and lung; Z82.49 Family history of ischemic heart disease and other diseases of the circulatory system; Z80.0 Family history of malignant neoplasm of digestive organs
CPT/HCPCS: 36415; 80053; 81000; 82010; 82962; 85007; 85027

== ENCOUNTER 2019-12-27 19:24 | Inpatient (IN) | payer MEDICARE, OTHER ==
[~2019-12-27] VITALS: Ht 149 cm; Wt 65.9 kg
[~2019-12-27 19:24] MED LIST changes: -OMEP-280 PO; +OMEP20CA18 PO
[2019-12-27 19:48] LABS: BASOPHILS # (AUTO) 0.1 10^3/uL (0.0-0.1); BASOPHILS % (AUTO) 1 % (0-10); EOSINOPHILS # (AUTO) 0.3 10^3/uL (0.0-0.3); EOSINOPHILS % (AUTO) 2 % (0-10); HEMATOCRIT 43 % (35-52); HEMOGLOBIN 14.9 G/DL (11.5-16.0); LYMPHOCYTES # (AUTO) 6.3 X 10^3 (1.0-4.0); LYMPHOCYTES % (AUTO) 49 % (12-44); MEAN CORPUSCULAR HEMOGLOBIN 30 PG (25-34); MEAN CORPUSCULAR HGB CONC 35 G/DL (32-36); MEAN CORPUSCULAR VOLUME 87 FL (80-99); MEAN PLATELET VOLUME 9.9 FL (7.4-10.4); MONOCYTES # (AUTO) 0.6 X 10^3 (0.0-1.0); MONOCYTES % (AUTO) 5 % (0-12); NEUTROPHILS # (AUTO) 5.6 X 10^3 (1.8-7.8); NEUTROPHILS % (AUTO) 44 % (42-75); PLATELET COUNT 376 10^3/uL (130-400); RED CELL DISTRIBUTION WIDTH 13.1 % (10.0-14.5); WHITE BLOOD COUNT 12.8 10^3/uL (4.3-11.0)
[2019-12-27 19:52] LABS: BILIRUBIN,URINE NEGATIVE (NEGATIVE); CLARITY,URINE CLEAR; COLOR,URINE YELLOW; GLUCOSE, URINE (UA) 3+ (NEGATIVE); KETONES,URINE NEGATIVE (NEGATIVE); LEUKOCYTE ESTERASE ,URINE NEGATIVE (NEGATIVE); NITRITE,URINE NEGATIVE (NEGATIVE); PH,URINE 6.5 (5-9); PROTEIN,URINE 3+ (NEGATIVE)
[2019-12-27] MEDS ORDERED: IOHEXOL 350 MG/ML 100 ML (OMNIPAQUE 350) VIAL IV ONE (20:00)
[2019-12-27] MEDS ORDERED: HOLD METFORMIN - RECEIVED CONTRAST 20 ML VIAL IV SCH (20:00)
[2019-12-27] MEDS ORDERED: NS 100 ML (IVPB) BAG IV ONE (20:00)
[2019-12-27 20:05] LABS: ALANINE AMINOTRANSFERASE 13 U/L (0-55); ALBUMIN 4.3 GM/DL (3.2-4.5); ALKALINE PHOSPHATASE 94 U/L (40-136); BILIRUBIN,TOTAL 0.3 MG/DL (0.1-1.0); BUN/CREATININE RATIO 15; CALCIUM 10.1 MG/DL (8.5-10.1); CARBON DIOXIDE 27 MMOL/L (21-32); CHLORIDE 102 MMOL/L (98-107); CREATININE SERUM 1.27 MG/DL (0.60-1.30); GFR ESTIMATED 43; GLUCOSE 122 MG/DL (70-105); POTASSIUM 4.1 MMOL/L (3.6-5.0); SODIUM 139 MMOL/L (135-145); TOTAL PROTEIN 7.6 GM/DL (6.4-8.2)
--- NOTE | 2019-12-27 20:05 | ED General ---
General Chief Complaint: Head/Cervical Problems Stated Complaint: HEADACHE Source of Information: Patient Exam Limitations: No Limitations History of Present Illness Date Seen by Provider: Dec 27, 2019 Time Seen by Provider: 20:05 Initial Comments To ER by EMS ER from home with concern of stroke secondary to garbled speech and headache. She initially had some left-sided numbness, during the transport to the hospital the numbness was alleged to have changed to be right-sided. Well known to the emergency room for uncontrolled diabetes, requests for fast IV pushes of Benadryl and frequently requests pain medication. Timing/Duration: 1-2 Days Severity: Moderate Allergies and Home Medications Allergies Coded Allergies: ketorolac (Verified Allergy, Severe, ANAPHYLAXIS, PT TAKES ASA AT HOME, 03/06/19) ondansetron (Verified Allergy, Intermediate, RASH, 03/06/19) RASH/ HIVES scopolamine (Verified Allergy, Mild, Rash, 03/21/19) exenatide (Verified Allergy, Unknown, NAUSEA, 03/06/19) NON STOP VOMITING latex (Verified Allergy, Unknown, RASH, 03/06/19) metoclopramide (Verified Allergy, Unknown, RESTLESS LEGS, 03/06/19) erythromycin base (Verified Adverse Reaction, Unknown, 03/21/19) Home Medications Acetaminophen 325 Mg Tablet, 650 MG PO Q8H PRN for PAIN-MILD (1-4), (Reported) Aspirin 81 Mg Tablet.dr, 81 MG PO DAILY, (Reported) Gabapentin 800 Mg Tablet, 1,600 MG PO HS, (Reported) Insulin Determir 1,000 Units/10 Ml Soln, 35 UNITS SQ DAILY, (Reported) Insulin Determir 1,000 Units/10 Ml Soln, 15 UNITS SQ HS, (Reported) Insulin Lispro 100 Unit/1 Ml Insuln.pen, UNITS SQ TIDWM SLIDING SCALE, (Reported) Lisinopril 10 Mg Tablet, 10 MG PO DAILY, (Reported) Melatonin 5 Mg Tab.ir.er, 5 MG PO HS PRN for SLEEP, (Reported) Mirtazapine 15 Mg Tablet, 15 MG PO HS, (Reported) Omeprazole Magnesium 20 Mg Tablet.dr, 20 MG PO DAILY, (Reported) Patient Home Medication List Home Medication List Reviewed: Yes Review of Systems Review of Systems Constitutional: see HPI, other (unable to obtain) Past Qoylsmj-Ipeguz-Jbumzv Hx Patient Social History Alcohol Beverage of Choice: Wine Drug of Choice: NARCOTIC ABUSE Type Used: Cigars, Cigarettes Former Smoker, Quit: Nov 10, 2017 2nd Hand Smoke Exposure: No Recent Foreign Travel: No Contact w/Someone Who Travel: No Recent Hopitalizations: Yes Immunizations Up To Date Tetanus Booster (TDap): Unknown PED Vaccines UTD: No Date of Pneumonia Vaccine: Nov 06, 2019 Date of Influenza Vaccine: Nov 22, 2019 Seasonal Allergies Seasonal Allergies: Yes Past Medical History Surgeries: Yes (LITHOTRIPSY;LUMBAR SURGERY X 4;BMT'S;EGD WITH ESOPHAGEAL DILATION;) Cardiac, Coronary Stent, Ear Surgery, Gallbladder, Orthopedic, Renal Respiratory: Yes Chronic Bronchitis, Sleep Apnea Currently Using CPAP: No (NON-COMPLIANT WITH CPAP USE) Currently Using BIPAP: No Cardiac: Yes (CARDIAC STENT (AORTA) X 1; DVT'S IN ARMS;CAROTID DISEASE) Chronic Edema/Swelling, Coronary Artery Disease, Deep Vein Thrombosis, High Cholesterol, Hypertension Neurological: Yes (NEUROPATHY IN HANDS AND FEET) Headaches /Migraines, Neuropathy 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 Disorders: No 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 Disorders: Denies 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 STRICTURE;GASTROPARESIS;CHRONIC NVD/ABD PAIN) Gastroesophageal Reflux, Diverticulosis, Esophagitis, Irritable Bowel Musculoskeletal: Yes (CHRONIC GENERALIZED PAIN, CHRONIC BILAT SHOULDER PAIN, CHRONIC NECK PAIN) Degenerate Disk Disease, Fibromyalgia, Chronic Back Pain Endocrine: Yes (NON-COMPLIANT;MULTIPLE EPISODES OF DKA-EASILY CONTROLLED ON INSULIN IN HOSP) Diabetes, Insulin dep HEENT: Yes (GLASSES; S/P BMT'S) Chronic Ear Infection Loss of Vision: Bilateral Hearing Impairment: Hard of Hearing Cancer: No Psychosocial: Yes Anxiety Integumentary: Yes Psoriasis Blood Disorders: No Adverse Reaction/Blood Tranf: No (HAS HAD BLOOD WITH NO REACTION) Family Medical History Cancer of mouth 19 FATHER ( of esophogeal cancer.) Cardiovascular disease 19 MOTHER G8 BROTHER Completed stroke 19 FATHER G8 BROTHER Diabetes mellitus G8 BROTHER FH: lung cancer 19 MOTHER Hypertension 19 FATHER Kidney disease 19 FATHER Myocardial infarction 19 MOTHER G8 BROTHER Respiratory disorder No Family History of: AIDS CAD Over 55 Years Old, CVA, Diabetes, GI Disease, Renal Disease Physical Exam Vital Signs Vital Signs - First Documented 12/27/19 19:24 Temp 38.1 Pulse 95 Resp 24 B/P (MAP) 170/82 (111) Pulse Ox 99 O2 Delivery Room Air Capillary Refill : Height, Weight, BMI Height: 5'1.00" Weight: 122lbs. 1.0oz. [id number]; 26.00 BMI Method:Estimated General Appearance: No Apparent Distress, WD/WN, Chronically ill, Other (alert, follows commands, moves all extremities, speech is stuttering, however she is able to ask for pain medication for her headache with clear fluent speech, she is also able to ask for her niece Gayathri To come back here.) Eyes: Bilateral Eye Normal Inspection, Bilateral Eye PERRL Respiratory: Normal Breath Sounds, No Accessory Muscle Use, No Respiratory Distress Cardiovascular: Regular Rate, Rhythm, Normal Peripheral Pulses Gastrointestinal: Normal Bowel Sounds, Non Tender, Soft Extremity: Normal Capillary Refill, Normal Inspection Neurologic/Psychiatric: Alert, Oriented x3, No Motor/Sensory Deficits Skin: Normal Color, Warm/Dry Progress/Results/Core Measures Suspected Sepsis SIRS Temperature: Pulse: Respiratory Rate: Laboratory Tests 12/27/19 19:39: White Blood Count 12.8H Blood Pressure / Mean: Laboratory Tests 12/27/19 19:39: Creatinine 1.27, INR Comment 0.9, Platelet Count 376, Total Bilirubin 0.3 Results/Orders Lab Results Laboratory Tests Test 12/27/19 19:32 12/27/19 19:39 12/27/19 19:40 Range/Units Glucometer 132 H 70-110 MG/DL White Blood Count 12.8 H 4.3-11.0 10^3/uL Red Blood Count 4.96 4.35-5.85 10^6/uL Hemoglobin 14.9 11.5-16.0 G/DL Hematocrit 43 35-52 % Mean Corpuscular Volume 87 80-99 FL Mean Corpuscular Hemoglobin 30 25-34 PG Mean Corpuscular Hemoglobin Concent 35 32-36 G/DL Red Cell Distribution Width 13.1 10.0-14.5 % Platelet Count 376 130-400 10^3/uL Mean Platelet Volume 9.9 7.4-10.4 FL Neutrophils (%) (Auto) 44 42-75 % Lymphocytes (%) (Auto) 49 H 12-44 % Monocytes (%) (Auto) 5 0-12 % Eosinophils (%) (Auto) 2 0-10 % Basophils (%) (Auto) 1 0-10 % Neutrophils # (Auto) 5.6 1.8-7.8 X 10^3 Lymphocytes # (Auto) 6.3 H 1.0-4.0 X 10^3 Monocytes # (Auto) 0.6 0.0-1.0 X 10^3 Eosinophils # (Auto) 0.3 0.0-0.3 10^3/uL Basophils # (Auto) 0.1 0.0-0.1 10^3/uL Prothrombin Time 12.9 12.2-14.7 SEC INR Comment 0.9 0.8-1.4 Activated Partial Thromboplast Time 23 L 24-35 SEC D-Dimer < 0.27 0.00-0.49 UG/ML Sodium Level 139 135-145 MMOL/L Potassium Level 4.1 3.6-5.0 MMOL/L Chloride Level 102 98-107 MMOL/L Carbon Dioxide Level 27 21-32 MMOL/L Anion Gap 10 5-14 MMOL/L Blood Urea Nitrogen 19 H 7-18 MG/DL Creatinine 1.27 0.60-1.30 MG/DL Estimat Glomerular Filtration Rate 43 BUN/Creatinine Ratio 15 Glucose Level 122 H 70-105 MG/DL Calcium Level 10.1 8.5-10.1 MG/DL Corrected Calcium 9.9 8.5-10.1 MG/DL Total Bilirubin 0.3 0.1-1.0 MG/DL Aspartate Amino Transf (AST/SGOT) 10 5-34 U/L Alanine Aminotransferase (ALT/SGPT) 13 0-55 U/L Alkaline Phosphatase 94 40-136 U/L Troponin I < 0.028 <0.028 NG/ML Total Protein 7.6 6.4-8.2 GM/DL Albumin 4.3 3.2-4.5 GM/DL Urine Color YELLOW Urine Clarity CLEAR Urine pH 6.5 5-9 Urine Specific [place] 1.020 1.016-1.022 Urine Protein 3+ H NEGATIVE Urine Glucose (UA) 3+ H NEGATIVE Urine Ketones NEGATIVE NEGATIVE Urine Nitrite NEGATIVE NEGATIVE Urine Bilirubin NEGATIVE NEGATIVE Urine Urobilinogen 0.2 < = 1.0 MG/DL Urine Leukocyte Esterase NEGATIVE NEGATIVE Urine RBC (Auto) NEGATIVE NEGATIVE Urine RBC RARE /HPF Urine WBC NONE /HPF Urine Crystals NONE /LPF Urine Bacteria NEGATIVE /HPF Urine Casts PRESENT /LPF Urine Hyaline Casts RARE /LPF Urine Mucus NEGATIVE /LPF Urine Culture Indicated NO Urine Opiates Screen NEGATIVE NEGATIVE Urine Oxycodone Screen NEGATIVE NEGATIVE Urine Methadone Screen NEGATIVE NEGATIVE Urine Propoxyphene Screen NEGATIVE NEGATIVE Urine Barbiturates Screen NEGATIVE NEGATIVE Ur Tricyclic Antidepressants Screen NEGATIVE NEGATIVE Urine Phencyclidine Screen NEGATIVE NEGATIVE Urine Amphetamines Screen NEGATIVE NEGATIVE Urine Methamphetamines Screen NEGATIVE NEGATIVE Urine Benzodiazepines Screen NEGATIVE NEGATIVE Urine Cocaine Screen NEGATIVE NEGATIVE Urine Cannabinoids Screen NEGATIVE NEGATIVE My Orders Orders - JR MARIE APRN Cbc With Automated Diff (12/27/19 19:26) Protime With Inr (12/27/19 19:26) Partial Thromboplastin Time (12/27/19:) Comprehensive Metabolic Panel (12/27/19 19:) Fibrin Degradation Products (12/27/19:) Troponin I (12/27/19 19:) Ua Culture If Indicated (12/27/19 19:26) Chest 1 View, Ap/Pa Only (12/27/19 19:26) Ekg Tracing (12/27/19 19:26) Ed Iv/Invasive Line Start (12/27/19 19:26) Ed Iv/Invasive Line Start (12/27/19:26) O2 (12/27/19:) Monitor-Rhythm Ecg Trace Only (12/27/19 19:26) Ct Angio Head W Wo (12/27/19 19:26) Accucheck Stat ONCE (12/27/19 19:26) Vital Signs Stroke Patient Q15M (12/27/19 19:26) Intake & Output 06,14,22 (12/27/19 19:26) Dysphagia Screening Tool (12/27/19 19:26) Post Thrombolytic Adminstratio (12/27/19 19:26) Nothing By Mouth (12/28/19 Breakfast) Lipid Panel (12/28/19 06:00) Iohexol Injection (Omnipaque 350 Mg/Ml 1 (12/27/19 20:00) Received Contrast (Hold Metformin- Contr (12/27/19 20:00) Ns (Ivpb) (Sodium Chloride 0.9% Ivpb Bag (12/27/19 20:00) Drug Screen Stat (Urine) (12/27/19 20:26) Labetalol Injection (Normodyne Injection (12/27/19 21:30) Medications Given in ED Current Medications Medications Dose Ordered Sig/Jackie Route Start Time Stop Time Status Last Admin Dose Admin Iohexol 75 ml ONCE ONCE IV 12/27/19 20:00 12/27/19 20:01 DC 12/27/19 20:06 75 ML Sodium Chloride 100 ml ONCE ONCE IV 12/27/19 20:00 12/27/19 20:01 DC 12/27/19 20:06 80 ML Vital Signs/I&O 12/27/19 19:24 Temp 38.1 Pulse 95 Resp 24 B/P (MAP) 170/82 (111) Pulse Ox 99 O2 Delivery Room Air Capillary Refill : Point of Care Testing Finger Stick Blood Glucose: 132 Blood Glucose Action Taken: [place] notified Diagnostic Imaging Diagonstic Imaging: Xray Plain Films/CT/US/NM/MRI: other Comments NAME: VALENTE HARPER MED REC#: [id number] PT STATUS: REG ER : 1960 PHYSICIAN: JR MARIE APRN ADMIT DATE: 12/27/19/ER Signed Date of Exam:12/27/19 CHEST 1 VIEW, AP/PA ONLY EXAMINATION: Chest radiograph, portable AP view. DATE: 12/27/2019 8:05 PM. INDICATION: 59-year-old female, headache. Slurred speech. COMPARISON: September 06, 2019. FINDINGS: There is a right-sided port catheter with tip overlying the cavoatrial junction. There is cervical spine hardware. Heart size and mediastinal contours are unremarkable. There is no identified pneumothorax. There is no large pleural effusion. There is no identified focal airspace consolidation. IMPRESSION: No identified acute cardiopulmonary abnormality. Dictated by: Dictated on workstation # [id number] Dict: 12/27/192004 Trans: 12/27/192026 [facility] [id number] Interpreted by: FAIRHA PAYTON MD Electronically signed by: FARIHA PAYTON MD 12/27/192026 NAME: VALENTE HARPER MED REC#: [id number] PT STATUS: REG ER : 1960 PHYSICIAN: JR MARIE APRN ADMIT DATE: 12/27/19/ER Draft Date of Exam:12/27/19 CT ANGIO HEAD W WO PROCEDURE: CT angiography of the head with and without contrast. TECHNIQUE: Noncontrast CT of the head was obtained. Subsequently, after intravenous administration of contrast, thin section axial CT angiography of the head was performed. Source data was reformatted into multiple MIP reformats. Delayed postcontrast acquisition of the head was also acquired. Auto Exposure Controls were utilized during the CT exam to meet ALARA standards for radiation dose reduction. INDICATION: Headache, light sensitivity. COMPARISON: 04/22/2019. FINDINGS: No intracranial hemorrhage. Chronic infarctions are again noted within the right ramirez radiata and right subinsular region, stable. Additional mild background chronic small vessel white matter ischemic disease is noted. No CT evidence of an acute ischemic infarction. No midline shift, herniation, hydrocephalus or extra-axial fluid collection. The orbits are unremarkable. The paranasal sinuses are clear. The calvarium and extracalvarial soft tissues are unremarkable. No enhancing intracranial mass lesion. The large arterial structures of the head are unremarkable without evidence of occlusion, hemodynamically significant stenosis, dissection or aneurysm. Multiple periapical lucencies are identified with the remaining partially visualized maxillary teeth anteriorly, particularly on the right. However, the patient is predominantly edentulous. IMPRESSION: 1. No acute intracranial abnormality with stable chronic ischemic changes. 2. Large arterial structures of the head are unremarkable, as described above. 3. Multiple periapical lucencies are partially visualized associated with the remaining anterior maxillary teeth. Dictated on workstation # [id number] Dict: 12/27/192014 Trans: 12/27/192032 [facility] [id number] Interpreted by: PEDRO CATALAN MD Electronically signed by: NAME: VALENTE HARPER [facility] REC#: [id number] PT STATUS: REG ER : 1960 PHYSICIAN: JR MARIE APRN ADMIT DATE: 12/27/19/ER Draft Date of Exam:12/27/19 CT ANGIO HEAD W WO PROCEDURE: CT angiography of the head with and without contrast. TECHNIQUE: Noncontrast CT of the head was obtained. Subsequently, after intravenous administration of contrast, thin section axial CT angiography of the head was performed. Source data was reformatted into multiple MIP reformats. Delayed postcontrast acquisition of the head was also acquired. Auto Exposure Controls were utilized during the CT exam to meet ALARA standards for radiation dose reduction. INDICATION: Headache, light sensitivity. COMPARISON: 04/22/2019. FINDINGS: No intracranial hemorrhage. Chronic infarctions are again noted within the right ramirez radiata and right subinsular region, stable. Additional mild background chronic small vessel white matter ischemic disease is noted. No CT evidence of an acute ischemic infarction. No midline shift, herniation, hydrocephalus or extra-axial fluid collection. The orbits are unremarkable. The paranasal sinuses are clear. The calvarium and extracalvarial soft tissues are unremarkable. No enhancing intracranial mass lesion. The large arterial structures of the head are unremarkable without evidence of occlusion, hemodynamically significant stenosis, dissection or aneurysm. Multiple periapical lucencies are identified with the remaining partially visualized maxillary teeth anteriorly, particularly on the right. However, the patient is predominantly edentulous. IMPRESSION: 1. No acute intracranial abnormality with stable chronic ischemic changes. 2. Large arterial structures of the head are unremarkable, as described above. 3. Multiple periapical lucencies are partially visualized associated with the remaining anterior maxillary teeth. Dictated on workstation # [id number] Dict: 12/27/192014 Trans: 12/27/192032 [facility] [id number] Interpreted by: PEDRO CATALAN MD Electronically signed by: Departure Communication (Admissions) Time/Spoke to Admitting Phy: 21:[address] Calabrese, we will, we will admit observation status 2131-I discussed with Dr. Will from stroke center. She agrees that this does not sound to be organic in nature because her exam doesn't fit any one vascular territory. Given the unknown last known well time this evening and the absence of any large vessel occlusion on CT angios she is not a candidate for TPA. She should be on aspirin and a statin as well. Headaches are not a typical finding in ischemic stroke. She should be treated for hypertensive urgency, non- emergent MRI. Impression Primary Impression: Hypertesive urgency Additional Impression: Conversion disorder with abnormal movement, acute episode Disposition: ADMITTED INPATIENT Condition: Stable Admissions Decision to Admit Reason: Admit from ER (General) Decision to Admit/Date: Dec 27, 2019 Time/Decision to Admit Time: 21:32 Departure-Patient Inst. Referrals: CINDY CALABRESE DO (PCP/Family) Primary Care Physician NIH Stroke Scale NIH Stroke Scale NIH : Select: Initial Level of Consciousness: 0=Alert Level of Consciousness-[place]: 2=Answer neither question LOC Commands: 0=Performs both tasks Gaze: 0=Normal Visual [place]: 0=No visual loss Facial Movement (Facial [place]: 3=Complete paralysis Motor Function-Arms Right: 0=No drift Motor Function-Arms Left: 0=No drift Motor Function-Legs Right: 1=Drift Motor Function-Legs Left: 1=Drift Limb Ataxia: 1=Present in one limb Sensory: 2=Severe to total loss Best Language: 2=Severe aphasia Dysarthria: 2=Severe dysarthria Extinction & Inattention: 0=No abnormality NIH Stroke Scale Score: 2055 JR MARIE APRN Dec 27, 2019 20:05
[2019-12-27 20:07] LABS: FIBRIN DEGRADATION PRODUCTS < 0.27 UG/ML (0.00-0.49); INR 0.9 (0.8-1.4); PARTIAL THROMBOPLASTIN TIME 23 SEC (24-35); PROTHROMBIN TIME PATIENT 12.9 SEC (12.2-14.7)
[2019-12-27 20:09] LABS: BACTERIA,URINE NEGATIVE /HPF; HYALINE CASTS, URINE RARE /LPF; RBC,URINE RARE /HPF
--- NOTE | 2019-12-27 20:27 | Diagnostic Imaging Report ---
EXAMINATION: Chest radiograph, portable AP view. DATE: 12/27/2019 8:05 PM. INDICATION: 59-year-old female, headache. Slurred speech. COMPARISON: September 06, 2019. FINDINGS: There is a right-sided port catheter with tip overlying the cavoatrial junction. There is cervical spine hardware. Heart size and mediastinal contours are unremarkable. There is no identified pneumothorax. There is no large pleural effusion. There is no identified focal airspace consolidation. IMPRESSION: No identified acute cardiopulmonary abnormality. Dictated by: Dictated on workstation # [id number]
--- NOTE | 2019-12-27 20:33 | Diagnostic Imaging Report ---
PROCEDURE: CT angiography of the head with and without contrast. TECHNIQUE: Noncontrast CT of the head was obtained. Subsequently, after intravenous administration of contrast, thin section axial CT angiography of the head was performed. Source data was reformatted into multiple MIP reformats. Delayed postcontrast acquisition of the head was also acquired. Auto Exposure Controls were utilized during the CT exam to meet ALARA standards for radiation dose reduction. INDICATION: Headache, light sensitivity. COMPARISON: 04/22/2019. FINDINGS: No intracranial hemorrhage. Chronic infarctions are again noted within the right ramirez radiata and right subinsular region, stable. Additional mild background chronic small vessel white matter ischemic disease is noted. No CT evidence of an acute ischemic infarction. No midline shift, herniation, hydrocephalus or extra-axial fluid collection. The orbits are unremarkable. The paranasal sinuses are clear. The calvarium and extracalvarial soft tissues are unremarkable. No enhancing intracranial mass lesion. The large arterial structures of the head are unremarkable without evidence of occlusion, hemodynamically significant stenosis, dissection or aneurysm. Multiple periapical lucencies are identified with the remaining partially visualized maxillary teeth anteriorly, particularly on the right. However, the patient is predominantly edentulous. IMPRESSION: 1. No acute intracranial abnormality with stable chronic ischemic changes. 2. Large arterial structures of the head are unremarkable, as described above. 3. Multiple periapical lucencies are partially visualized associated with the remaining anterior maxillary teeth. Dictated by: Dictated on workstation # [id number]
[2019-12-27 21:14] LABS: AMPHETAMINE SCREEN, URINE NEGATIVE (NEGATIVE); BARBITURATE SCREEN URINE NEGATIVE (NEGATIVE); BENZODIAZEPINES SCREEN URINE NEGATIVE (NEGATIVE); CANNABINOID SCREEN, URINE NEGATIVE (NEGATIVE); COCAINE SCREEN URINE NEGATIVE (NEGATIVE); METHADONE STAT NEGATIVE (NEGATIVE); METHAMPHETAMINE SCREEN URINE S NEGATIVE (NEGATIVE); OPIATE SCREEN URINE NEGATIVE (NEGATIVE); OXYCODONE STAT NEGATIVE (NEGATIVE); PROPOXYPHENE STAT NEGATIVE (NEGATIVE); TRICYCLIC ANTIDEPRESSANTS SCRE NEGATIVE (NEGATIVE)
[2019-12-27] MEDS ORDERED: MIDAZOLAM 5 MG/5 ML (VERSED) VIAL INJ ONE (21:26)
[2019-12-27] MEDS ORDERED: fentaNYL INJECTION 100 MCG/2 ML AMP INJ ONE (21:26)
[2019-12-27] MEDS ORDERED: LABETALOL HCL 20 MG/4 ML VIAL IV ONE ×2 (21:30→21:45)
[2019-12-27 23:15] VITALS: BP 123/104
[2019-12-27] MEDS: NS IV 1000 ML 1,000 ML IV SCH (23:15)
[2019-12-27] MEDS ORDERED: NS IV 1000 ML 1,000 ML ONE (23:16)
[2019-12-27 23:30] VITALS: BP 138/100
[2019-12-27] MEDS ORDERED: CATHETER FLUSH 10 ML SYR IV PRN (23:30)
[2019-12-27 23:45] VITALS: BP 138/109
[2019-12-28] VITALS (20 sets, daily range): BP systolic 94–197; BP diastolic 64–110
[2019-12-28] MEDS: LABETALOL HCL 20 MG/4 ML VIAL IV PRN ×4 (02:21→21:11)
[2019-12-28 03:59] LABS: BASOPHILS # (AUTO) 0.1 10^3/uL (0.0-0.1); BASOPHILS % (AUTO) 1 % (0-10); EOSINOPHILS # (AUTO) 0.2 10^3/uL (0.0-0.3); EOSINOPHILS % (AUTO) 1 % (0-10); HEMATOCRIT 36 % (35-52); HEMOGLOBIN 12.1 G/DL (11.5-16.0); LYMPHOCYTES # (AUTO) 4.5 X 10^3 (1.0-4.0); LYMPHOCYTES % (AUTO) 27 % (12-44); MEAN CORPUSCULAR HEMOGLOBIN 30 PG (25-34); MEAN CORPUSCULAR HGB CONC 34 G/DL (32-36); MEAN CORPUSCULAR VOLUME 87 FL (80-99); MEAN PLATELET VOLUME 9.9 FL (7.4-10.4); MONOCYTES # (AUTO) 0.7 X 10^3 (0.0-1.0); MONOCYTES % (AUTO) 4 % (0-12); NEUTROPHILS # (AUTO) 11.5 X 10^3 (1.8-7.8); NEUTROPHILS % (AUTO) 68 % (42-75); PLATELET COUNT 304 10^3/uL (130-400); RED CELL DISTRIBUTION WIDTH 12.6 % (10.0-14.5); WHITE BLOOD COUNT 16.8 10^3/uL (4.3-11.0)
[2019-12-28 04:24] LABS: ALANINE AMINOTRANSFERASE 11 U/L (0-55); ALBUMIN 3.6 GM/DL (3.2-4.5); ALKALINE PHOSPHATASE 78 U/L (40-136); BILIRUBIN,TOTAL 0.3 MG/DL (0.1-1.0); BUN/CREATININE RATIO 17; CALCIUM 8.8 MG/DL (8.5-10.1); CARBON DIOXIDE 20 MMOL/L (21-32); CHLORIDE 103 MMOL/L (98-107); CHOLESTEROL 179 MG/DL (< 200); CREATININE SERUM 0.93 MG/DL (0.60-1.30); GFR ESTIMATED > 60; GLUCOSE 211 MG/DL (70-105); HDL CHOLESTEROL 36 MG/DL (40-60); MAGNESIUM 1.6 MG/DL (1.6-2.4); PHOSPHORUS 4.1 MG/DL (2.3-4.7); POTASSIUM 3.6 MMOL/L (3.6-5.0); SODIUM 135 MMOL/L (135-145); TOTAL PROTEIN 6.3 GM/DL (6.4-8.2); TRIGLYCERIDES 234 MG/DL (<150); VLDL CHOLESTEROL 47 MG/DL (5-40)
[2019-12-28] MEDS: POTASSIUM CL 10MEQ/50ML IVPB 50 ML IV SCH ×3 (05:10→06:36)
[2019-12-28] MEDS: MAGNESIUM 1 GM/100 ML IVPB 100 ML IV SCH ×3 (05:11→06:36)
[2019-12-28] MEDS: KCL 20 MEQ TAB (K-DUR) PO SCH (05:12)
[2019-12-28] MEDS ORDERED: inSUlin ASPART (NovoLOG) 1 UNIT/0.01 ML (CHARGE PER UNIT) ONE (06:09)
[2019-12-28] MEDS: CATHETER FLUSH 10 ML SYR IV SCH ×3 (06:21→22:32)
[2019-12-28] MEDS: inSUlin ASPART (NovoLOG) 1 UNIT/0.01 ML (CHARGE PER UNIT) SC SCH ×4 (06:21→21:11)
--- NOTE | 2019-12-28 07:44 | History & Physical ---
History of Present Illness History of Present Illness Reason for visit/HPI Patient released from hospital yesterday. Patient came back yesterday by EMS due to having left sided numbness. Neurologic the hospital numbness changed to the right side. Patient's blood pressure elevated Patient this morning appears confused. Patient does not note 10-2 equals A she states it equals 2. Patient confused in her answers. Unable to get good history from patient Date of Admission Dec 27, 2019 at 21:25 Time Seen by a Provider: 07:39 I consulted on this patient on 12/28/19 07:39 Attending Physician Gerardo Calabrese DO Admitting Physician Gerardo Calabrese DO Consult Allergies and Home Medications Allergies Coded Allergies: ketorolac (Verified Allergy, Severe, ANAPHYLAXIS, PT TAKES ASA AT HOME, 03/06/19) ondansetron (Verified Allergy, Intermediate, RASH, 03/06/19) RASH/ HIVES scopolamine (Verified Allergy, Mild, Rash, 03/21/19) exenatide (Verified Allergy, Unknown, NAUSEA, 03/06/19) NON STOP VOMITING latex (Verified Allergy, Unknown, RASH, 03/06/19) metoclopramide (Verified Allergy, Unknown, RESTLESS LEGS, 03/06/19) erythromycin base (Verified Adverse Reaction, Unknown, 03/21/19) Home Medications Acetaminophen 325 Mg Tablet, 650 MG PO Q8H PRN for PAIN-MILD (1-4), (Reported) Aspirin 81 Mg Tablet.dr, 81 MG PO DAILY, (Reported) Gabapentin 800 Mg Tablet, 1,600 MG PO HS, (Reported) Insulin Determir 1,000 Units/10 Ml Soln, 35 UNITS SQ DAILY, (Reported) Insulin Determir 1,000 Units/10 Ml Soln, 15 UNITS SQ HS, (Reported) Insulin Lispro 100 Unit/1 Ml Insuln.pen, UNITS SQ TIDWM SLIDING SCALE, (Reported) Lisinopril 10 Mg Tablet, 10 MG PO DAILY, (Reported) Melatonin 5 Mg Tab.ir.er, 5 MG PO HS PRN for SLEEP, (Reported) Mirtazapine 15 Mg Tablet, 15 MG PO HS, (Reported) Omeprazole Magnesium 20 Mg Tablet.dr, 20 MG PO DAILY, (Reported) Patient Home Medication List Home Medication List Reviewed: No Past Awogcly-Rxykjz-Khihhd Hx Past Med/Social Hx: Reviewed Nursing Past Med/Soc Hx Patient Social History Alcohol Use: Denies Use Number of Drinks Today: Alcohol Beverage of Choice: Wine Recreational Drug Use: Yes Drug of Choice: NARCOTIC ABUSE Former Smoker, Quit: Nov 10, 2017 Type Used: Cigars, Cigarettes 2nd Hand Smoke Exposure: No Recent Foreign Travel: No Contact w/other who traveled: No Recent Hopitalizations: Yes Recent Infectious Disease Expo: No Immunizations Up To Date Tetanus Booster (TDap): Unknown Pediatric: No Date of Pneumonia Vaccine: Nov 06, 2019 Date of Influenza Vaccine: Nov 22, 2019 Seasonal Allergies Seasonal Allergies: Yes Past Medical History Surgeries: Cardiac, Coronary Stent, Ear Surgery, Gallbladder, Orthopedic, Renal Respiratory: Asthma Currently Using CPAP: No (NON-COMPLIANT WITH CPAP USE) Currently Using BIPAP: No Cardiac: Chronic Edema/Swelling, Coronary Artery Disease, Deep Vein Thrombosis, High Cholesterol, Hypertension Neurological: Headaches /Migraines, Neuropathy 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: No Sexually Transmitted Disease: No HIV/AIDS: No 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 Disorders: Denies Menopausal Genitourinary: Bladder Infection, Kidney Stones, Renal Failure Gastrointestinal: Gastroesophageal Reflux, Diverticulosis, Esophagitis, Irritable Bowel Musculoskeletal: Degenerate Disk Disease, Fibromyalgia, Chronic Back Pain Endocrine: Diabetes, Insulin dep HEENT: Chronic Ear Infection Loss of Vision: Bilateral Hearing Impairment: Hard of Hearing Psychosocial: Anxiety Skin/Integumentary: Psoriasis History of Blood Disorders: No Adverse Reaction to Blood Green: No (HAS HAD BLOOD WITH NO REACTION) Family History Cancer of mouth 19 FATHER ( of esophogeal cancer.) Cardiovascular disease 19 MOTHER G8 BROTHER Completed stroke 19 FATHER G8 BROTHER Diabetes mellitus G8 BROTHER FH: lung cancer 19 MOTHER Hypertension 19 FATHER Kidney disease 19 FATHER Myocardial infarction 19 MOTHER G8 BROTHER Respiratory disorder No Family History of: AIDS CAD Over 55 Years Old, CVA, Diabetes, GI Disease, Renal Disease Review of Systems Constitutional: no symptoms reported EENTM: no symptoms reported Respiratory: no symptoms reported Cardiovascular: other (Hypertension urgency) Gastrointestinal: no symptoms reported Genitourinary: no symptoms reported Physical Exam Vital Signs Vital Signs - First Documented 12/27/19 19:24 Temp 38.1 Pulse 95 Resp 24 B/P (MAP) 170/82 (111) Pulse Ox 99 O2 Delivery Room Air Capillary Refill : Less Than 3 Seconds Height, Weight, BMI Height: 5'1.00" Weight: 122lbs. 1.0oz. [id number]; 26.00 BMI Method:Estimated General Appearance: No Apparent Distress, Thin Eyes: Bilateral Eye Normal Inspection HEENT: Normal ENT Inspection Neck: Full Range of Motion, Normal Inspection Respiratory: Lungs Clear, No Accessory Muscle Use, No Respiratory Distress Cardiovascular: Regular Rate, Rhythm, No Murmur Gastrointestinal: Non Tender, Soft Assessment/Plan Assessment and Plan Hypertensive urgency. Diabetes. Coronary artery disease. Patient has a cardiac device implanted and unable to do MRI. Confusion. Conversion reaction or Admission Diagnosis Admission Status: Inpatient Order (span 2 midnights) Reason for Inpatient Admission: Hypertension urgency. Confusion. 's coronary artery disease. Diabetes GERARDO CALABRESE DO Dec 28, 2019 07:44
[2019-12-28] MEDS: NS IV 1000 ML 1,000 ML IV SCH ×2 (07:49→15:50)
--- NOTE | 2019-12-28 08:28 | Diagnostic Imaging Report ---
INDICATION: Stroke like symptoms, hypertensive urgency. TECHNIQUE: Single view chest 3:11 AM. CORRELATION STUDY: 12/27/2019 FINDINGS: Right IJ Oznmep-o-Kfel catheter tip over the high right atrium. Loop recorder device. Heart size, mediastinum, and vasculature overall generally stable given limited depth of inspiration. Minimal crowding at the lung bases. No consolidating infiltrate. Cervical thoracic spinal fixation hardware present. IMPRESSION: 1. Negative for acute abnormality of the chest. Dictated by: Dictated on workstation # [id number]
[2019-12-28] MEDS ORDERED: PROMETHAZINE 25 MG (PHENERGAN) TAB PO PRN (09:30)
[2019-12-28] MEDS ORDERED: diphenhydrAMINE 25 MG TAB (BENADRYL) PO PRN (09:30)
[2019-12-28] MEDS ORDERED: diphenhydrAMINE 50 MG/ML INJ (BENADRYL) ONE (10:28)
[2019-12-28] MEDS ORDERED: PROMETHAZINE INJ 25 MG/ML (PHENERGAN) AMP ONE (10:28)
[2019-12-28] MEDS ORDERED: OMEP20CA18 PO (10:29)
[2019-12-28] MEDS: PROMETHAZINE INJ 25 MG/ML (PHENERGAN) AMP IVP PRN ×3 (10:34→21:59)
[2019-12-28] MEDS: diphenhydrAMINE 50 MG/ML INJ (BENADRYL) IVP PRN ×3 (10:34→21:59)
[2019-12-28] MEDS ORDERED: MELA5CAP PO (10:41)
[2019-12-28] MEDS ORDERED: PROM25TA14 PO (10:41)
[2019-12-28] MEDS ORDERED: GABA800T10 PO (10:46)
--- NOTE | 2019-12-28 10:47 | NUR ---
PATIENT WAS RECENTLY ADMITTED AND MED REC WAS COMPLETED BY [facility]. THERE IS A LIST SCANNED IN THAT WAS FAXED OVER FROM [facility] ON HER PREVIOUS ACCOUNT. I CALLED [facility] TODAY AND VERIFIED THEY HAVE NOT DISPENSED ANY MEDICATION TO HER SINCE HER LAST ADMISSION HERE. [facility] FILLED: 12-06-19 LISINOPRIL 10MG DAILY #30 12-06-19 OMEPRAZOLE 20MG DAILY #30 12-04-19 LEVEMIR FLEXTOUCH 40 UNITS DAILY (STATES SHE USES 35AM AND 15 HS) 11-30-19 GABAPENTIN 800MG 1 AFTERNOON 2 HS #90 (STATES SHE TAKES 2 HS SCHEDULED AND 1 PRN) 11-17-19 MIRTAZAPINE 15MG HS #30 08-30-19 HUMALOG KWIKPEN #15 [facility] DID FILL A SMALL SUPPLY OF PROMETHAZINE TABS FROM DR. BRADSHAW, PATIENT DID PICK THEM UP BUT SHE STATES SHE HAD TROUBLE KEEPING THEM DOWN. OTC MEDS: TYLENOL 650MG PRN ASPIRIN 81MG DAILY MELATONIN 5MG HS PRN
[2019-12-28] MEDS ORDERED: NON-FORMULARY MEDICATION 1 EA EA (Melatonin 5 MG) PO PRN (13:30)
[2019-12-28] MEDS ORDERED: NON-FORMULARY MEDICATION 1 EA EA (Gabapentin 800 MG) PO PRN (13:30)
[2019-12-28] MEDS ORDERED: MELATONIN 3 MG TABLET PO PRN (13:45)
[2019-12-28] MEDS ORDERED: GABAPENTIN 400 MG (NEURONTIN) CAP PO PRN (14:00)
--- NOTE | 2019-12-28 18:29 | NUR ---
1800 DUE TO CHANGES IN STAFFING CARE OF PT TO THIS RN, REPORT RECEIVED FROM MOUSTAPHA SÁNCHEZ. PT ASSISTED BACK TO BED AFTER BEING ON BEDSIDE COMMODE, PT HAS HAD 2 LOOSE STOOLS. PT ALERT DOES HAVE SOME MOMENTS OF DELAYED SPEECH. PT REPOSITIONED PER COMFORT, CALL LIGHT AND OTHER PERSONAL ITEMS WITHIN REACH, BED ALARM SET. WILL CONTINUE TO MONITOR.
[2019-12-28] MEDS ORDERED: NON-FORMULARY MEDICATION 1 EA EA (Mirtazapine 15 MG) PO SCH (21:00)
[2019-12-28] MEDS ORDERED: NON-FORMULARY MEDICATION 1 EA EA (Gabapentin 1,600 MG) PO SCH (21:00)
[2019-12-28] MEDS: GABAPENTIN 400 MG (NEURONTIN) CAP PO SCH (21:11)
[2019-12-28] MEDS: MIRTAZAPINE 15 MG (REMERON) TAB PO SCH (21:11)
[2019-12-28] MEDS: ENOXAPARIN 40 MG/0.4 ML (LOVENOX) SYR SC SCH (21:17)
[2019-12-28] MEDS ORDERED: NORMAL SALINE 250 ML ONE (21:41)
[2019-12-28] MEDS ORDERED: inSUlin (REGULAR) HUMAN 1 UNIT/0.01 ML (CHARGE PER UNIT) ONE ×2 (21:42→21:44)
[2019-12-28] MEDS: inSUlin REGULAR TPN/DRIP 250 UNITS/NS 250 ML IV SCH ×2 (22:00)
[2019-12-28] MEDS ORDERED: ONDANSETRON 4 MG/2 ML (SDV) Z0FRAN IV PRN (22:00)
[2019-12-29] VITALS (24 sets, daily range): BP systolic 108–206; BP diastolic 62–113
[2019-12-29] MEDS: LABETALOL HCL 20 MG/4 ML VIAL IV PRN (00:18)
[2019-12-29] MEDS: NS IV 1000 ML 1,000 ML IV SCH ×4 (00:39→23:39)
[2019-12-29] MEDS ORDERED: hydrALAZINE (APESOLINE) 20 MG/ML VIAL IV ONE (00:45)
[2019-12-29 01:12] LABS: BUN/CREATININE RATIO 21; CALCIUM 9.3 MG/DL (8.5-10.1); CARBON DIOXIDE 21 MMOL/L (21-32); CHLORIDE 104 MMOL/L (98-107); GFR ESTIMATED > 60; GLUCOSE 228 MG/DL (70-105); POTASSIUM 3.5 MMOL/L (3.6-5.0); SODIUM 136 MMOL/L (135-145)
[2019-12-29] MEDS: diphenhydrAMINE 50 MG/ML INJ (BENADRYL) IV PRN ×5 (01:15→22:41)
[2019-12-29] MEDS: POTASSIUM CL 10MEQ/50ML IVPB 50 ML IV SCH ×3 (01:16→04:35)
[2019-12-29 03:37] LABS: BASOPHILS # (AUTO) 0.1 10^3/uL (0.0-0.1); BASOPHILS % (AUTO) 1 % (0-10); EOSINOPHILS # (AUTO) 0.2 10^3/uL (0.0-0.3); EOSINOPHILS % (AUTO) 1 % (0-10); HEMATOCRIT 36 % (35-52); HEMOGLOBIN 12.6 G/DL (11.5-16.0); LYMPHOCYTES # (AUTO) 3.3 X 10^3 (1.0-4.0); LYMPHOCYTES % (AUTO) 25 % (12-44); MEAN CORPUSCULAR HEMOGLOBIN 30 PG (25-34); MEAN CORPUSCULAR HGB CONC 35 G/DL (32-36); MEAN CORPUSCULAR VOLUME 86 FL (80-99); MEAN PLATELET VOLUME 9.8 FL (7.4-10.4); MONOCYTES # (AUTO) 0.7 X 10^3 (0.0-1.0); MONOCYTES % (AUTO) 5 % (0-12); NEUTROPHILS % (AUTO) 68 % (42-75); PLATELET COUNT 284 10^3/uL (130-400); RED CELL DISTRIBUTION WIDTH 12.5 % (10.0-14.5); WHITE BLOOD COUNT 13.2 10^3/uL (4.3-11.0)
[2019-12-29] MEDS: PROMETHAZINE INJ 25 MG/ML (PHENERGAN) AMP IVP PRN ×4 (03:53→22:41)
[2019-12-29 03:54] LABS: BUN/CREATININE RATIO 20; CALCIUM 9.2 MG/DL (8.5-10.1); CARBON DIOXIDE 19 MMOL/L (21-32); CHLORIDE 106 MMOL/L (98-107); GFR ESTIMATED > 60; GLUCOSE 184 MG/DL (70-105); MAGNESIUM 1.8 MG/DL (1.6-2.4); PHOSPHORUS 2.2 MG/DL (2.3-4.7); POTASSIUM 3.8 MMOL/L (3.6-5.0); SODIUM 136 MMOL/L (135-145)
[2019-12-29] MEDS: MAGNESIUM 1 GM/100 ML IVPB 100 ML IV SCH (04:35)
[2019-12-29] MEDS: KCL 20 MEQ TAB (K-DUR) PO SCH (04:35)
[2019-12-29] MEDS: CATHETER FLUSH 10 ML SYR IV SCH ×3 (06:10→20:08)
--- NOTE | 2019-12-29 07:21 | Progress Note ---
Subjective Time Seen by a Provider: 07:13 Subjective/Events-last exam Patient is morning nauseous. Patient had vomiting during the night. Patient more coherent today and not confused. improving Objective Exam Vital Signs Date Time Temp Pulse Resp B/P (MAP) Pulse Ox O2 Delivery O2 Flow Rate FiO2 12/29/19 06:00 96 116/83 (94) 97 Room Air 12/29/19 05:00 93 180/101 (127) 98 Room Air 12/29/19 04:00 94 Room Air 12/29/19 04:00 90 97 Room Air 12/29/19 03:00 82 162/89 (113) 98 Room Air 12/29/19 02:00 84 160/79 (106) 97 Room Air 12/29/19 01:00 80 185/92 (123) 97 Room Air 12/29/19 01:00 80 12/29/19 00:00 94 Room Air 12/29/19 00:00 84 167/90 (115) 98 Room Air 12/28/19 23:00 86 26 193/89 (123) 97 Room Air 12/28/19 22:00 86 13 197/98 (131) 97 Room Air 12/28/19 21:00 91 18 197/98 (131) 97 Room Air 12/28/19 20:00 36.8 12/28/19 20:00 94 Room Air 12/28/19 20:00 90 15 196/83 (120) 97 Room Air 12/28/19 19:00 88 183/84 (117) 94 Room Air 12/28/19 19:00 87 12/28/19 17:00 80 96 Room Air 12/28/19 16:00 96 Room Air 12/28/19 16:00 144 27 146/95 (112) 91 Room Air 12/28/19 15:08 36.9 12/28/19 15:00 70 156/78 (104) 95 Room Air 12/28/19 14:00 74 149/74 (99) 97 Room Air 12/28/19 13:00 84 189/95 (126) 98 Room Air 12/28/19 13:00 79 12/28/19 12:26 37.2 12/28/19 12:00 94 Room Air 12/28/19 12:00 80 22 176/88 (117) 97 Room Air 2/6/20 11:00 78 169/84 (112) 95 Room Air 12/28/19 10:00 78 16 125/67 (86) 97 Room Air 12/28/19 09:00 70 94/64 (74) 97 Room Air 12/28/19 08:00 94 Room Air 12/28/19 08:00 70 123/68 (86) 97 Room Air 12/28/19 08:00 94 Room Air I & O 12/29/19 07:00 Intake Total 955 ml Output Total 4375 ml Balance -3420 ml Capillary Refill : Less Than 3 Seconds General Appearance: No Apparent Distress, Thin HEENT: Normal ENT Inspection Neck: Full Range of Motion, Normal Inspection Respiratory: Lungs Clear, No Accessory Muscle Use, No Respiratory Distress Cardiovascular: Regular Rate, Rhythm, No Murmur Gastrointestinal: non tender, soft Results Lab Laboratory Tests 12/29/19 00:23 12/29/19 03:32 Laboratory Tests 12/28/19 11:57: Glucometer 305H 12/28/19 15:49: Glucometer 121H 12/28/19 19:54: Glucometer 481*H 12/28/19 21:03: Glucometer 522*H 12/28/19 22:03: Glucometer 524*H 12/28/19 23:03: Glucometer 428*H 12/29/19 00:22: Glucometer 216H 12/29/19 00:23: Sodium Level 136, Potassium Level 3.5L, Chloride Level 104, Carbon Dioxide Level 21, Anion Gap 11, Blood Urea Nitrogen 19H, Creatinine 0.90, Estimat Glomerular Filtration Rate > 60, BUN/Creatinine Ratio 21, Glucose Level 228H, Calcium Level 9.3 12/29/19 01:26: Glucometer 283H 12/29/19 02:23: Glucometer 200H 12/29/19 03:30: Glucometer 177H 12/29/19 03:32: White Blood Count 13.2H, Red Blood Count 4.19L, Hemoglobin 12.6, Hematocrit 36, Mean Corpuscular Volume 86, Mean Corpuscular Hemoglobin 30, Mean Corpuscular Hemoglobin Concent 35, Red Cell Distribution Width 12.5, Platelet Count 284, Mean Platelet Volume 9.8, Neutrophils (%) (Auto) 68, Lymphocytes (%) (Auto) 25, Monocytes (%) (Auto) 5, Eosinophils (%) (Auto) 1, Basophils (%) (Auto) 1, N eutrophils # (Auto) 9.0H, Lymphocytes # (Auto) 3.3, Monocytes # (Auto) 0.7, Eosinophils # (Auto) 0.2, Basophils # (Auto) 0.1, Sodium Level 136, Potassium Level 3.8, Chloride Level 106, Carbon Dioxide Level 19L, Anion Gap 11, Blood Urea Nitrogen 16, Creatinine 0.80, Estimat Glomerular Filtration Rate > 60, BUN/Creatinine Ratio 20, Glucose Level 184H, Calcium Level 9.2, Phosphorus Level 2.2L, Magnesium Level 1.8 12/29/19 04:31: Glucometer 188H 12/29/19 05:24: Glucometer 125H 12/29/19 06:28: Glucometer 90 Assessment/Plan Assessment/Plan Assess & Plan/Chief Complaint Diabetes. Strokelike symptoms resolved. Nauseousness. CAD Clinical Quality Measures Admission Status Admission Dx Hypertensive urgency. Diabetes. Coronary artery disease. Patient has a cardiac device implanted and unable to do MRI. Confusion. Conversion reaction or DVT/VTE Risk/Contraindication: Risk Factor Score Per Nursin RFS Level Per Nursing on Admit: 2=Moderate CINDY CALABRESE DO Dec 29, 2019 07:21
--- NOTE | 2019-12-29 08:02 | Consultation-Cardiology ---
HPI-Cardiology Cardiology Consultation: Date of Consultation 12/29/19 Time Seen by a Provider: 08:15 Date of Admission 12-27-2019 Attending Physician Cindy Calabrese DO Admitting Physician Cindy Calabrese DO Consulting Physician Missy Cobb MD HPI: Chief Complaint: Palpitations TIA vs CVA Ms. Harper is a 59 year old female admitted to ICU 6 d/t nausea, vomiting which has persisted for approx 2 weeks. She reports a few days ago she began to have difficulty "finding words". No report of facial droop, focal weakness, difficulty swallowing or slurred speech. She denies any syncope, near syncope or chest pain. She denies any SOB. She does report frequent episodes of "racing heart" which have been present for several months. She does have an ILR in place. She is currently sitting on the side of the bed. She states she is feeling much better and her speech is improving. Review of Systems-Cardiology Review of Systems Constitutional: No chills, No fever; malaise, weight loss Eyes: No vision change Ears/Nose/Throat: No epistaxis, No recent hearing loss Respiratory: As described under HPI Cardiovascular: As described under HPI Gastrointestinal: No constipation, No diarrhea; nausea, vomiting Genitourinary: No dysuria, No hematuria Musculoskeletal: no symptoms reported Skin: No rash on exposed areas, No ulcerations on exposed areas Psychiatric/Neurological: No seizure, No focal weakness, No syncope Hematologic: No bleeding abnormalities FEF-Qzeznv-Clzdoz Hx Patient Social History Alcohol Use: Denies Use Recreational Drug Use: Yes Drug of Choice: NARCOTIC ABUSE Type Used: Cigars, Cigarettes 2nd Hand Smoke Exposure: No Recent Foreign Travel: No Recent Infectious Disease Expo: No Hospitalization with Isolation: Denies Immunizations Up To Date Tetanus Booster (TDap): Unknown Date of Pneumonia Vaccine: Nov 06, 2019 Date of Influenza Vaccine: Nov 22, 2019 Past Medical History PMH As described under Assessment. Family Medical History Family Medical History: She reports her father had a stroke and high blood pressure. She reports her mother had CAD. She reports her brother has CAD, CVA and DM. Family History: Cancer of mouth 19 FATHER ( of esophogeal cancer.) Cardiovascular disease 19 MOTHER G8 BROTHER Completed stroke 19 FATHER G8 BROTHER Diabetes mellitus G8 BROTHER FH: lung cancer 19 MOTHER Hypertension 19 FATHER Kidney disease 19 FATHER Myocardial infarction 19 MOTHER G8 BROTHER Respiratory disorder No Family History of: AIDS Allergies and Home Medications Allergies Coded Allergies: ketorolac (Verified Allergy, Severe, ANAPHYLAXIS, PT TAKES ASA AT HOME, 03/06/19) ondansetron (Verified Allergy, Intermediate, RASH, 03/06/19) RASH/ HIVES scopolamine (Verified Allergy, Mild, Rash, 03/21/19) exenatide (Verified Allergy, Unknown, NAUSEA, 03/06/19) NON STOP VOMITING latex (Verified Allergy, Unknown, RASH, 03/06/19) metoclopramide (Verified Allergy, Unknown, RESTLESS LEGS, 03/06/19) erythromycin base (Verified Adverse Reaction, Unknown, 03/21/19) Home Medications Acetaminophen 325 Mg Tablet, 650 MG PO Q8H PRN for PAIN-MILD (1-4), (Reported) TAKES 2 (325MG) TABLETS Aspirin 81 Mg Tablet.dr, 81 MG PO DAILY, (Reported) Gabapentin 800 Mg Tablet, 1,600 MG PO HS, (Reported) TAKES 2 (800MG) TABLETS Gabapentin 800 Mg Tablet, 800 MG PO DAILY PRN for NERVE PAIN, (Reported) Insulin Determir 1,000 Units/10 Ml Soln, 35 UNITS SQ DAILY, (Reported) Insulin Determir 1,000 Units/10 Ml Soln, 15 UNITS SQ HS, (Reported) Insulin Lispro 100 Unit/1 Ml Insuln.pen, UNITS SQ TIDAC, (Reported) STATES HER METER TELL HER HOW MUCH TO ADMINISTER SCRIPT STATES 1 UNIT SUBQ FOR EVERY 4 CARBS WITH MEALS PLUS CORRECTION Lisinopril 10 Mg Tablet, 10 MG PO DAILY, (Reported) Melatonin 5 Mg Capsule, 5 MG PO HS PRN for SLEEP, (Reported) Mirtazapine 15 Mg Tablet, 15 MG PO HS, (Reported) Omeprazole 20 Mg Capsule.dr, 20 MG PO DAILY, (Reported) Promethazine HCl 25 Mg Tablet, 25 MG PO Q6H PRN for NAUSEA/VOMITING-2ND LINE, (Reported) Patient Home Medication List Home Medication List Reviewed: Yes Physical Exam-Cardiology Physical Exam Vital Signs/I&O 12/29/19 12/29/19 12/29/19 12/29/19 00:00 00:00 01:00 01:00 Pulse 84 80 80 B/P (MAP) 167/90 (115) 185/92 (123) Pulse Ox 98 94 97 O2 Delivery Room Air Room Air Room Air 12/29/19 12/29/19 12/29/19 12/29/19 02:00 03:00 04:00 04:00 Pulse 84 82 90 B/P (MAP) 160/79 (106) 162/89 (113) Pulse Ox 97 98 97 94 O2 Delivery Room Air Room Air Room Air Room Air 12/29/19 12/29/19 12/29/19 12/29/19 05:00 06:00 06:42 07:00 Temp 37.1 Pulse 93 96 105 B/P (MAP) 180/101 (127) 116/83 (94) Pulse Ox 98 97 O2 Delivery Room Air Room Air 12/29/19 07:57 Pulse Ox 96 O2 Delivery Room Air 12/29/19 00:00 Intake Total 855 ml Output Total 2250 ml Balance -1395 ml Capillary Refill : Less Than 3 Seconds Constitutional: AAO x 3, other (thin) HEENT: PERRL, hearing is well preserved Neck: carotid bruit, carotid pulses are 2 + bilaterally Respiratory: No accessory muscle use, No respiratory distress; chest expansion is symmetric, chest is bilaterally symmetric, lungs clear to auscultation Cardiovascular: No JVD; tachycardia, S1 and S2 Gastrointestinal: No tender; audible bowel sounds Extremities: no lower extremity edema bilateral Neurologic/Psychiatric: grossly intact (moves all extremities; speech is appropriate) Skin: No rash on exposed areas, No ulcerations on exposed areas Data Review Labs Laboratory Tests 12/28/19 11:57: Glucometer 305H 12/28/19 15:49: Glucometer 121H 12/28/19 19:54: Glucometer 481*H 12/28/19 21:03: Glucometer 522*H 12/28/19 22:03: Glucometer 524*H 12/28/19 23:03: Glucometer 428*H 12/29/19 00:22: Glucometer 216H 12/29/19 00:23: Sodium Level 136, Potassium Level 3.5L, Chloride Level 104, Carbon Dioxide Level 21, Anion Gap 11, Blood Urea Nitrogen 19H, Creatinine 0.90, Estimat Glomerular Filtration Rate > 60, BUN/Creatinine Ratio 21, Glucose Level 228H, Calcium Level 9.3 12/29/19 01:26: Glucometer 283H 12/29/19 02:23: Glucometer 200H 12/29/19 03:30: Glucometer 177H 12/29/19 03:32: White Blood Count 13.2H, Red Blood Count 4.19L, Hemoglobin 12.6, Hematocrit 36, Mean Corpuscular Volume 86, Mean Corpuscular Hemoglobin 30, Mean Corpuscular Hemoglobin Concent 35, Red Cell Distribution Width 12.5, Platelet Count 284, Mean Platelet Volume 9.8, Neutrophils (%) (Auto) 68, Lymphocytes (%) (Auto) 25, Monocytes (%) (Auto) 5, Eosinophils (%) (Auto) 1, Basophils (%) (Auto) 1, Neutrophils # (Auto) 9.0H, Lymphocytes # (Auto) 3.3, Monocytes # (Auto) 0.7, Eosinophils # (Auto) 0.2, Basophils # (Auto) 0.1, Sodium Level 136, Potassium Level 3.8, Chloride Level 106, Carbon Dioxide Level 19L, Anion Gap 11, Blood Urea Nitrogen 16, Creatinine 0.80, Estimat Glomerular Filtration Rate > 60, BUN/Creatinine Ratio 20, Glucose Level 184H, Calcium Level 9.2, Phosphorus Level 2.2L, Magnesium Level 1.8 12/29/19 04:31: Glucometer 188H 12/29/19 05:24: Glucometer 125H 12/29/19 06:28: Glucometer 90 12/29/19 10:58: Glucometer 140H Radiology NAME: VALENTE HARPER [facility] REC#: [id number] PT STATUS: ADM Muna : 1960 PHYSICIAN: CINDY CALABRESE DO ADMIT DATE: 12/27/19/ICU Signed Date of Exam:12/28/19 CHEST 1 VIEW, AP/PA ONLY INDICATION: Stroke like symptoms, hypertensive urgency. TECHNIQUE: Single view chest 3:11 AM. CORRELATION STUDY: 12/27/2019 FINDINGS: Right IJ Ghvqxm-u-Fqrm catheter tip over the high right atrium. Loop recorder device. Heart size, mediastinum, and vasculature overall generally stable given limited depth of inspiration. Minimal crowding at the lung bases. No consolidating infiltrate. Cervical thoracic spinal fixation hardware present. IMPRESSION: 1. Negative for acute abnormality of the chest. Dictated by: Dictated on workstation # [id number] Dict: 12/28/19 0750 Trans: 12/28/19 1249 JAMIE [id number] Interpreted by: PENG BYRNE DO Electronically signed by: PENG BYRNE DO 12/28/19 1249 ECG Impression ECG Initial ECG Rhythm: Normal Sinus A/P-Cardiology Assessment/Admission Diagnosis TIA vs CVA - management per medical services H/O syncope, mostly postural. S/P ILR implant on 11-10-2019 H/O Postural hypotension likely d/t diabetic/autonomic neuropathy - no further episodes. SR with occ PVC's; no evidence of mickey-arrhythmia seen on Holter study of April 04, 2019. 48 HR Holter of Sep 21 showed SR with multiple PAC, PVC; short episodes of PAT per Dr. 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 Underwent stenting of mid LAD Resolute Integrity 2.[address] Cohen on 07/13/15; Last cath on 01/20/19: patent mid LAD stent with 50% post-stent (FFR 0.86), 50% distal LCX OM and D1 and prox and distal RCA. LVEF 65%, LVEDP 15 mmHg (essentially unchanged compared to previous caths). MPI of 04-04-19 showed no evidence of any signif ischemia or infarction. LVEF 86% Echo on 01/19/19: LVEF 60-65%, grade 1 moody dysfunction, PASP 25 mmHg DM II, insulin-requiring, managed by her leather dresser, Dr Nash Hypertension - currently orthostatic hypotension Hyperlipidemia, managed by Dr Nash Chronic tobacco use Chronic pain, mostly back pain, treated with chronic narcotic analgesics and multiple back surgeries for bulging discs (cervical and lumbar spines) Psoriatic arthritis Hardness of hearing H/o MIHIR, but noncompliant with therapy Approx 60% R ICA, less than 50% L ICA stenosis on carotid u/s of March 2019 Intermittent non-compliance with f/u H/o CKD that is followed by Dr. Court Saha of nephrology services Discussion and Recomendations TIA vs CVA - management per medical services Sinus tachycardia - start low dose BB for rate control Reduce Lisinopril to allow more BP room for BP control Will check ILR transmissions to eval for arrhythmia Continue ASA d/t known h/o CAD and carotid dz Monitor lab closely Replace electrolytes as indicated Management of nausea/vomiting is per medical services We would like to thank medical services for this consult Further recs will be based on her hospital course Clinical Quality Measures DVT/VTE Risk/Contraindication: Risk Factor Score Per Nursin RFS Level Per Nursing on Admit: 2=Moderate SHIRA BOOTHE Dec 29, 2019 08:02
[2019-12-29] MEDS: ASPIRIN E.C. 81 MG (ECOTRIN) TAB PO SCH (08:24)
[2019-12-29] MEDS: PANTOPRAZOLE 20 MG TABLET (PROTONIX) PO SCH (08:24)
[2019-12-29] MEDS ORDERED: OMEPRAZOLE 20 MG (PriLOSEC) CAP NON-FORMULARY PO SCH (09:00)
[2019-12-29] MEDS ORDERED: lisINopril 10 MG (PRINIVIL) TABLET PO SCH (09:00)
[2019-12-29] MEDS ORDERED: amLODIPine 10 MG (NORVASC) TAB PO NR (10:15)
--- NOTE | 2019-12-29 10:20 | Consultation-Cardiology ---
HPI-Cardiology Cardiology Consultation: Date of Consultation 12/29/19 Time Seen by a Provider: 09:50 Date of Admission Attending Physician Gerardo Greenwood DO Admitting Physician Gerardo Greenwood DO Consulting Physician RICH FELIX MD, MA, FACP, FACC, FSCAI, CCDS HPI: Chief Complaint: Reason for consultation: Palpitations; possible TIA vs CVA HPI Ms. Urbano is a 59 year old female admitted to ICU 6 d/t nausea, vomiting which has persisted for approx 2 weeks. She reports a few days ago she began to have difficulty "finding words". No report of facial droop, focal weakness, difficulty swallowing or slurred speech. She denies any syncope, near syncope or chest pain. She denies any SOB. She does report frequent episodes of "racing heart" which have been present for several months. She does have an ILR in place. She is currently sitting on the side of the bed. She states she is feeling much better and her speech is improving. Review of Systems-Cardiology Review of Systems Constitutional: No chills, No fever; malaise, weight loss Eyes: No vision change Ears/Nose/Throat: No epistaxis, No recent hearing loss Respiratory: As described under HPI Cardiovascular: As described under HPI Gastrointestinal: No constipation, No diarrhea; nausea, vomiting Genitourinary: No dysuria, No hematuria Musculoskeletal: no symptoms reported Skin: No rash on exposed areas, No ulcerations on exposed areas Psychiatric/Neurological: No seizure, No focal weakness, No syncope Hematologic: No bleeding abnormalities AAQ-Jstsen-Usqgrv Hx Patient Social History Alcohol Use: Denies Use Recreational Drug Use: Yes Drug of Choice: NARCOTIC ABUSE Type Used: Cigars, Cigarettes 2nd Hand Smoke Exposure: No Recent Foreign Travel: No Recent Infectious Disease Expo: No Hospitalization with Isolation: Denies Immunizations Up To Date Tetanus Booster (TDap): Unknown Date of Pneumonia Vaccine: Nov 06, 2019 Date of Influenza Vaccine: Nov 22, 2019 Past Medical History PMH As described under Assessment. Family Medical History Family Medical History: She reports her father had a stroke and high blood pressure. She reports her mother had CAD. She reports her brother has CAD, CVA and DM. Family History: Cancer of mouth 19 FATHER ( of esophogeal cancer.) Cardiovascular disease 19 MOTHER G8 BROTHER Completed stroke 19 FATHER G8 BROTHER Diabetes mellitus G8 BROTHER FH: lung cancer 19 MOTHER Hypertension 19 FATHER Kidney disease 19 FATHER Myocardial infarction 19 MOTHER G8 BROTHER Respiratory disorder No Family History of: AIDS Allergies and Home Medications Allergies Coded Allergies: ketorolac (Verified Allergy, Severe, ANAPHYLAXIS, PT TAKES ASA AT HOME, 03/06/19) ondansetron (Verified Allergy, Intermediate, RASH, 03/06/19) RASH/ HIVES scopolamine (Verified Allergy, Mild, Rash, 03/21/19) exenatide (Verified Allergy, Unknown, NAUSEA, 03/06/19) NON STOP VOMITING latex (Verified Allergy, Unknown, RASH, 03/06/19) metoclopramide (Verified Allergy, Unknown, RESTLESS LEGS, 03/06/19) erythromycin base (Verified Adverse Reaction, Unknown, 03/21/19) Home Medications Acetaminophen 325 Mg Tablet, 650 MG PO Q8H PRN for PAIN-MILD (1-4), (Reported) TAKES 2 (325MG) TABLETS Aspirin 81 Mg Tablet.dr, 81 MG PO DAILY, (Reported) Gabapentin 800 Mg Tablet, 1,600 MG PO HS, (Reported) TAKES 2 (800MG) TABLETS Gabapentin 800 Mg Tablet, 800 MG PO DAILY PRN for NERVE PAIN, (Reported) Insulin Determir 1,000 Units/10 Ml Soln, 35 UNITS SQ DAILY, (Reported) Insulin Determir 1,000 Units/10 Ml Soln, 15 UNITS SQ HS, (Reported) Insulin Lispro 100 Unit/1 Ml Insuln.pen, UNITS SQ TIDAC, (Reported) STATES HER METER TELL HER HOW MUCH TO ADMINISTER SCRIPT STATES 1 UNIT SUBQ FOR EVERY 4 CARBS WITH MEALS PLUS CORRECTION Lisinopril 10 Mg Tablet, 10 MG PO DAILY, (Reported) Melatonin 5 Mg Capsule, 5 MG PO HS PRN for SLEEP, (Reported) Mirtazapine 15 Mg Tablet, 15 MG PO HS, (Reported) Omeprazole 20 Mg Capsule.dr, 20 MG PO DAILY, (Reported) Promethazine HCl 25 Mg Tablet, 25 MG PO Q6H PRN for NAUSEA/VOMITING-2ND LINE, ( Reported) Patient Home Medication List Home Medication List Reviewed: Yes Physical Exam-Cardiology Physical Exam Vital Signs/I&O 12/28/19 12/29/19 12/29/19 12/29/19 23:00 00:00 00:00 01:00 Pulse 86 84 80 Resp 26 B/P (MAP) 193/89 (123) 167/90 (115) Pulse Ox 97 98 94 O2 Delivery Room Air Room Air Room Air 12/29/19 12/29/19 12/29/19 12/29/19 01:00 02:00 03:00 04:00 Pulse 80 84 82 90 B/P (MAP) 185/92 (123) 160/79 (106) 162/89 (113) Pulse Ox 97 97 98 97 O2 Delivery Room Air Room Air Room Air Room Air 12/29/19 12/29/19 12/29/19 12/29/19 04:00 05:00 06:00 07:00 Temp 37.1 Pulse 93 96 B/P (MAP) 180/101 (127) 116/83 (94) Pulse Ox 94 98 97 O2 Delivery Room Air Room Air Room Air 12/29/19 07:57 Pulse Ox 96 O2 Delivery Room Air 12/29/19 00:00 Intake Total 855 ml Output Total 2250 ml Balance -1395 ml Capillary Refill : Less Than 3 Seconds Constitutional: AAO x 3, other (thin) HEENT: PERRL, hearing is well preserved Neck: carotid bruit, carotid pulses are 2 + bilaterally Respiratory: No accessory muscle use, No respiratory distress; chest expansion is symmetric, chest is bilaterally symmetric, lungs clear to auscultation Cardiovascular: No JVD; tachycardia, S1 and S2 Gastrointestinal: No tender; audible bowel sounds Extremities: no lower extremity edema bilateral Neurologic/Psychiatric: grossly intact (moves all extremities; speech is appropriate) Skin: No rash on exposed areas, No ulcerations on exposed areas Data Review Labs Laboratory Tests 12/28/19 11:57: Glucometer 305H 12/28/19 15:49: Glucometer 121H 12/28/19 19:54: Glucometer 481*H 12/28/19 21:03: Glucometer 522*H 12/28/19 22:03: Glucometer 524*H 12/28/19 23:03: Glucometer 428*H 12/29/19 00:22: Glucometer 216H 12/29/19 00:23: Sodium Level 136, Potassium Level 3.5L, Chloride Level 104, Carbon Dioxide Level 21, Anion Gap 11, Blood Urea Nitrogen 19H, Creatinine 0.90, Estimat Glomerular Filtration Rate > 60, BUN/Creatinine Ratio 21, Glucose Level 228H, Calcium Level 9.3 12/29/19 01:26: Glucometer 283H 12/29/19 02:23: Glucometer 200H 12/29/19 03:30: Glucometer 177H 12/29/19 03:32: White Blood Count 13.2H, Red Blood Count 4.19L, Hemoglobin 12.6, Hematocrit 36, Mean Corpuscular Volume 86, Mean Corpuscular Hemoglobin 30, Mean Corpuscular Hemoglobin Concent 35, Red Cell Distribution Width 12.5, Platelet Count 284, Mean Platelet Volume 9.8, Neutrophils (%) (Auto) 68, Lymphocytes (%) (Auto) 25, Monocytes (%) (Auto) 5, Eosinophils (%) (Auto) 1, Basophils (%) (Auto) 1, Neutrophils # (Auto) 9.0H, Lymphocytes # (Auto) 3.3, Monocytes # (Auto) 0.7, Eosinophils # (Auto) 0.2, Basophils # (Auto) 0.1, Sodium Level 136, Potassium Level 3.8, Chloride Level 106, Carbon Dioxide Level 19L, Anion Gap 11, Blood Urea Nitrogen 16, Creatinine 0.80, Estimat Glomerular Filtration Rate > 60, BUN/Creatinine Ratio 20, Glucose Level 184H, Calcium Level 9.2, Phosphorus Level 2.2L, Magnesium Level 1.8 12/29/19 04:31: Glucometer 188H 12/29/19 05:24: Glucometer 125H 12/29/19 06:28: Glucometer 90 Laboratory Tests 12/27/19 19:39 12/28/19 03:45 12/29/19 00:23 12/29/19 03:32 A/P-Cardiology Assessment/Admission Diagnosis TIA vs CVA - diagnosis and management is with the Medical Service H/O syncope, mostly postural. S/P ILR implant on 11-10-2019. No evidence of any significant arrhythmia on review of recordings on today H/O Postural hypotension likely d/t diabetic/autonomic neuropathy - no further episodes. SR with occ PVC's; no evidence of mickey-arrhythmia seen on Holter study of April 04, 2019. 48 HR Holter of Sep 21 showed SR with multiple PAC, PVC; short episodes of PAT per Dr. 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 Underwent stenting of mid LAD Resolute Integrity 2.[address] Cohen on 07/13/15; Last cath on 01/20/19: patent mid LAD stent with 50% post-stent (FFR 0.86), 50% distal LCX OM and D1 and prox and distal RCA. LVEF 65%, LVEDP 15 mmHg (essentially unchanged compared to previous caths). MPI of 04-04-19 showed no evidence of any signif ischemia or infarction. LVEF 86% Echo on 01/19/19: LVEF 60-65%, grade 1 moody dysfunction, PASP 25 mmHg DM II, insulin-requiring, managed by her senior accounting manager, Dr Nash Hypertension - uncontrolled Hyperlipidemia, managed by Dr Nash Chronic tobacco use Chronic pain, mostly back pain, treated with chronic narcotic analgesics and multiple back surgeries for bulging discs (cervical and lumbar spines) Psoriatic arthritis Hardness of hearing H/o MIHIR, but noncompliant with therapy Approx 60% R ICA, less than 50% L ICA stenosis on carotid u/s of March 2019 Intermittent non-compliance with f/u H/o CKD that is followed by Dr. Court Saha of nephrology services Discussion and Recomendations Add bb and amlodipine for bp Continue ASA d/t known h/o CAD and carotid dz Monitor lab closely Replace electrolytes as indicated Management of nausea/vomiting is per medical services We would like to thank Medical Services for this consult I reviewed pt's CV issues with her and answered questions Clinical Quality Measures DVT/VTE Risk/Contraindication: Risk Factor Score Per Nursin RFS Level Per Nursing on Admit: 2=Moderate RICH FELIX MD FACP FACC CCDS Dec 29, 2019 10:20
[2019-12-29] MEDS: inSUlin ASPART (NovoLOG) 1 UNIT/0.01 ML (CHARGE PER UNIT) SC SCH ×3 (12:59→20:00)
--- NOTE | 2019-12-29 14:31 | NUR ---
"RD ASSESSMENT PMHx: T1DM; CAD; DVT; GERD; IBS; hypercholesterolemia; diverticulosis PT INTERACTION: Pt was awake and pleasant during nutrition assessment. Note pt is a poor historian, per chart review. Pt states current appetite is poor and has been for the past two weeks. Note avg PO intake of 38% of meals, per chart review. Pt states following a low-CHO diet at home, and has some difficulty chewing food. Pt states episodes of nausea and vomiting over the past two weeks. Note 3 episodes of emesis on 12/29, per chart review. Pt states recent episodes of diarrhea. Note last BM on 12/28 and pt not currently on bowel regimen per chart review. Pt states unsure of recent wt changes, but states she has lost 80# of the last couple of years. Note unable to determine recent wt hx, per chart review. Pt states current DM management is pretty good. Note recent glu reading of 184, per chart review. ABNORMAL NUTRITION-RELATED LAB VALUES LOW: phos 2.2 HIGH: glu 184 Est. kcal needs: 7435-1368 kcal | 25-30 kcal/kg Est. Pro needs: 55-66 g Pro | 1.0-1.2 g Pro/kg PES STATEMENT: Inadequate oral intake (NI-2.1) related to loss of appetite | nausea | vomiting | diarrhea as evidenced by pt interview | chart review | avg PO intake 38% of meals INTERVENTION: Continue with current diet order of CHO 60g/m 1snack diet. Switch current supplementation order of Ensure Enlive with meals TID to Glucerna with meals TID, for increased kcal intake. Glucerna provides 220 kcal and 10 g Pro per serving. Will continue to follow and reassess as pt needs and status change. MONITOR/EVALUATE: PO Intake; Plan of Care; Hydration Status; Weight Status; Lab Values Sue Isaac, MS, RD, LD"
[2019-12-29] MEDS: inSUlin REGULAR TPN/DRIP 250 UNITS/NS 250 ML IV SCH ×2 (20:08)
[2019-12-29] MEDS: ENOXAPARIN 40 MG/0.4 ML (LOVENOX) SYR SC SCH (20:29)
[2019-12-29] MEDS: GABAPENTIN 400 MG (NEURONTIN) CAP PO SCH (20:29)
[2019-12-29] MEDS: MIRTAZAPINE 15 MG (REMERON) TAB PO SCH (20:29)
[2019-12-29] MEDS: ACETAMINOPHEN 500 MG TAB (TYLENOL) PO PRN (20:41)
[2019-12-30] VITALS (30 sets, daily range): BP systolic 73–160; BP diastolic 42–106
[2019-12-30] MEDS: inSUlin ASPART (NovoLOG) 1 UNIT/0.01 ML (CHARGE PER UNIT) SC SCH ×4 (00:15→18:05)
[2019-12-30] MEDS: NS IV 1000 ML 1,000 ML IV SCH (02:30)
[2019-12-30 03:27] LABS: BASOPHILS # (AUTO) 0.1 10^3/uL (0.0-0.1); BASOPHILS % (AUTO) 0 % (0-10); EOSINOPHILS # (AUTO) 0.5 10^3/uL (0.0-0.3); EOSINOPHILS % (AUTO) 3 % (0-10); HEMATOCRIT 35 % (35-52); LYMPHOCYTES # (AUTO) 9.6 X 10^3 (1.0-4.0); LYMPHOCYTES % (AUTO) 47 % (12-44); MEAN CORPUSCULAR HEMOGLOBIN 30 PG (25-34); MEAN CORPUSCULAR HGB CONC 35 G/DL (32-36); MEAN CORPUSCULAR VOLUME 87 FL (80-99); MEAN PLATELET VOLUME 9.7 FL (7.4-10.4); MONOCYTES # (AUTO) 1.2 X 10^3 (0.0-1.0); MONOCYTES % (AUTO) 6 % (0-12); NEUTROPHILS # (AUTO) 9.1 X 10^3 (1.8-7.8); NEUTROPHILS % (AUTO) 44 % (42-75); PLATELET COUNT 339 10^3/uL (130-400); WHITE BLOOD COUNT 20.4 10^3/uL (4.3-11.0)
[2019-12-30] MEDS: MAGNESIUM 1 GM/100 ML IVPB 100 ML IV SCH (03:37)
[2019-12-30] MEDS: POTASSIUM CL 10MEQ/50ML IVPB 50 ML IV SCH ×7 (03:37→12:28)
[2019-12-30] MEDS: CATHETER FLUSH 10 ML SYR IV SCH ×3 (03:37→21:03)
[2019-12-30] MEDS: KCL 20 MEQ TAB (K-DUR) PO SCH (03:37)
[2019-12-30] MEDS ORDERED: DEXTROSE 50% 50 ML (IMS) SYR ONE ×2 (03:54→04:46)
[2019-12-30 03:55] LABS: BUN/CREATININE RATIO 16; CALCIUM 8.8 MG/DL (8.5-10.1); CARBON DIOXIDE 21 MMOL/L (21-32); CHLORIDE 111 MMOL/L (98-107); CREATININE SERUM 0.85 MG/DL (0.60-1.30); GFR ESTIMATED > 60; MAGNESIUM 1.7 MG/DL (1.6-2.4); PHOSPHORUS 3.3 MG/DL (2.3-4.7); POTASSIUM 2.7 MMOL/L (3.6-5.0); SODIUM 142 MMOL/L (135-145)
[2019-12-30 03:57] LABS: GLUCOSE 10 MG/DL (70-105)
[2019-12-30 04:32] LABS: BUN/CREATININE RATIO 17; CALCIUM 8.3 MG/DL (8.5-10.1); CARBON DIOXIDE 21 MMOL/L (21-32); CHLORIDE 110 MMOL/L (98-107); CREATININE SERUM 0.84 MG/DL (0.60-1.30); GFR ESTIMATED > 60; GLUCOSE 188 MG/DL (70-105); POTASSIUM 2.8 MMOL/L (3.6-5.0); SODIUM 139 MMOL/L (135-145)
[2019-12-30] MEDS ORDERED: NALOXONE 0.4 MG/ML 1 ML (NARCAN) VIAL ONE (04:32)
[2019-12-30] MEDS ORDERED: D5 NS 1000 ML IV SOLUTION 1,000 ML IV ONE (04:46)
[2019-12-30 04:53] LABS: ABG BASE EXCESS -2.6 MMOL/L (-2.5-2.5); ABG OXYGEN SATURATION 96 % (94-100); ABG PCO2 37 MMHG (35-45); ABG PH 7.39 (7.37-7.43); ABG PO2 97 MMHG (79-93); ABG TCO2 23.2 MMOL/L (21.0-31.0); ALLENS TEST YES-POS; INSPIRED O2 ROOM AIR
[2019-12-30 04:54] LABS: PATIENT TEMP 35.2; VENTILATOR NO
[2019-12-30] MEDS ORDERED: DEXTROSE 50% 50 ML (IMS) SYR IV ONE (05:00)
[2019-12-30] MEDS: D5 NS 1000 ML IV SOLUTION 1,000 ML IV SCH ×3 (05:03→18:06)
[2019-12-30 06:05] LABS: BILIRUBIN,URINE NEGATIVE (NEGATIVE); CLARITY,URINE CLOUDY; COLOR,URINE YELLOW; GLUCOSE, URINE (UA) 1+ (NEGATIVE); KETONES,URINE NEGATIVE (NEGATIVE); LEUKOCYTE ESTERASE ,URINE 2+ (NEGATIVE); NITRITE,URINE NEGATIVE (NEGATIVE); PH,URINE 5.5 (5-9); PROTEIN,URINE 3+ (NEGATIVE)
[2019-12-30] MEDS ORDERED: NS IV 1000 ML 0 ML ONE (06:14)
[2019-12-30 06:15] LABS: AMPHETAMINE SCREEN, URINE NEGATIVE (NEGATIVE); BARBITURATE SCREEN URINE NEGATIVE (NEGATIVE); BENZODIAZEPINES SCREEN URINE NEGATIVE (NEGATIVE); CANNABINOID SCREEN, URINE NEGATIVE (NEGATIVE); COCAINE SCREEN URINE NEGATIVE (NEGATIVE); METHADONE STAT NEGATIVE (NEGATIVE); METHAMPHETAMINE SCREEN URINE S NEGATIVE (NEGATIVE); OPIATE SCREEN URINE NEGATIVE (NEGATIVE); OXYCODONE STAT NEGATIVE (NEGATIVE); PROPOXYPHENE STAT NEGATIVE (NEGATIVE); TRICYCLIC ANTIDEPRESSANTS SCRE NEGATIVE (NEGATIVE)
[2019-12-30] MEDS ORDERED: PHARMACY TO DOSE IV SCH (06:15)
[2019-12-30] MEDS ORDERED: NALOXONE 0.4 MG/ML 1 ML (NARCAN) VIAL IV ONE (06:15)
[2019-12-30] MEDS ORDERED: PIPERACILLIN/TAZOBACTAM (BULK) 4.5 GM in NS (IVPB) 100 ML IV SCH (06:15)
[2019-12-30 06:16] LABS: BACTERIA,URINE LARGE /HPF; WBC,URINE TNTC /HPF
[2019-12-30] MEDS ORDERED: LACTATED RINGERS 2,000 ML IV ONE (06:19)
--- NOTE | 2019-12-30 06:29 | Pulmonary Consultation ---
History of Present Illness History of Present Illness Date Seen by Provider: Dec 30, 2019 Time Seen by Provider: 06:26 Date of Admission History of Present Illness 59yo with hx of psych issues presented to ED 2/5 secondary to acute stroke like symptoms including garbled speech, left sided numbness, and PERKINS. During the transport to the hospital the numbness changed to be right-sided. Pt was requesting Benadryl and pain meds. This AM RN called me to bedside secondary to decreased MS, bradycardia, hypoglycemia, and hypothermia. Pt did get an amp of D50 and a dose of narcan. She wakes up and talks to heavy stimulation only. Pt has had a leukocytosis since admission. UA and CXR are negative. Allergies and Home Medications Allergies Coded Allergies: ketorolac (Verified Allergy, Severe, ANAPHYLAXIS, PT TAKES ASA AT HOME, 03/06/19) ondansetron (Verified Allergy, Intermediate, RASH, 03/06/19) RASH/ HIVES scopolamine (Verified Allergy, Mild, Rash, 03/21/19) exenatide (Verified Allergy, Unknown, NAUSEA, 03/06/19) NON STOP VOMITING latex (Verified Allergy, Unknown, RASH, 03/06/19) metoclopramide (Verified Allergy, Unknown, RESTLESS LEGS, 03/06/19) erythromycin base (Verified Adverse Reaction, Unknown, 03/21/19) Home Medications Acetaminophen 325 Mg Tablet, 650 MG PO Q8H PRN for PAIN-MILD (1-4), (Reported) TAKES 2 (325MG) TABLETS Amlodipine Besylate 5 Mg Tablet, 10 MG PO DAILY Prescribed by: TALITA LINDER on 01/02/20 1128 Amoxicillin 500 Mg Capsule, 500 MG PO TID Prescribed by: TALITA LINDER on 01/02/20 1200 Aspirin 81 Mg Tablet.dr, 81 MG PO DAILY, (Reported) Atorvastatin Calcium 10 Mg Tablet, 20 MG PO HS Prescribed by: TALITA LINDER on 01/02/20 1128 Gabapentin 800 Mg Tablet, 1,600 MG PO HS, (Reported) TAKES 2 (800MG) TABLETS Insulin Lispro 100 Unit/1 Ml Insuln.pen, UNITS SQ TIDAC, (Reported) STATES HER METER TELL HER HOW MUCH TO ADMINISTER SCRIPT STATES 1 UNIT SUBQ FOR EVERY 4 CARBS WITH MEALS PLUS CORRECTION Lisinopril 10 Mg Tablet, 10 MG PO DAILY, (Reported) Metoprolol Succinate 50 Mg Tab.er.24h, 50 MG PO DAILY Prescribed by: TALITA LINDER on 01/02/20 1128 Metoprolol Succinate 25 Mg Tab.er.24h, 25 MG PO DAILY Prescribed by: TALITA LINDER on 01/02/20 1128 Omeprazole 20 Mg Capsule.dr, 20 MG PO DAILY, (Reported) Promethazine HCl 25 Mg Tablet, 25 MG PO Q6H PRN for NAUSEA/VOMITING-2ND LINE, (Reported) Past Fkpemiy-Aujdpe-Ykppun Hx Past Med/Social Hx: Reviewed Nursing Past Med/Soc Hx Patient Social History Alcohol Use: Denies Use Number of Drinks Today: Alcohol Beverage of Choice: Wine Recreational Drug Use: Yes Drug of Choice: NARCOTIC ABUSE Type Used: Cigars, Cigarettes Former Smoker, Quit: Nov 10, 2017 2nd Hand Smoke Exposure: No Recent Foreign Travel: No Contact w/Someone Who Travel: No Recent Infectious Disease Expo: No Recent Hopitalizations: Yes Immunizations Up To Date Tetanus Booster (TDap): Unknown PED Vaccines UTD: No Date of Pneumonia Vaccine: Nov 06, 2019 Date of Influenza Vaccine: Nov 22, 2019 Seasonal Allergies Seasonal Allergies: Yes Past Medical History Surgeries: Yes (LITHOTRIPSY;LUMBAR SURGERY X 4;BMT'S;EGD WITH ESOPHAGEAL DILATION;) Cardiac, Coronary Stent, Ear Surgery, Gallbladder, Orthopedic, Renal Respiratory: Yes Chronic Bronchitis, Sleep Apnea Currently Using CPAP: No (NON-COMPLIANT WITH CPAP USE) Currently Using BIPAP: No Cardiac: Yes (CARDIAC STENT (AORTA) X 1; DVT'S IN ARMS;CAROTID DISEASE) Chronic Edema/Swelling, Coronary Artery Disease, Deep Vein Thrombosis, High Cholesterol, Hypertension Neurological: Yes (NEUROPATHY IN HANDS AND FEET) Headaches /Migraines, Neuropathy 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 Disorders: No 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 Disorders: Denies 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 STRICTURE;GASTROPARESIS;CHRONIC NVD/AB D PAIN) Gastroesophageal Reflux, Diverticulosis, Esophagitis, Irritable Bowel Musculoskeletal: Yes (CHRONIC GENERALIZED PAIN, CHRONIC BILAT SHOULDER PAIN, CHRONIC NECK PAIN) Degenerate Disk Disease, Fibromyalgia, Chronic Back Pain Endocrine: Yes (NON-COMPLIANT;MULTIPLE EPISODES OF DKA-EASILY CONTROLLED ON INSULIN IN HOSP) Diabetes, Insulin dep HEENT: Yes (GLASSES; S/P BMT'S) Chronic Ear Infection Loss of Vision: Bilateral Hearing Impairment: Hard of Hearing Cancer: No Psychosocial: Yes Anxiety Integumentary: Yes Psoriasis Blood Disorders: No Adverse Reaction/Blood Tranf: No (HAS HAD BLOOD WITH NO REACTION) Family Medical History Cancer of mouth 19 FATHER ( of esophogeal cancer.) Cardiovascular disease 19 MOTHER G8 BROTHER Completed stroke 19 FATHER G8 BROTHER Diabetes mellitus G8 BROTHER FH: lung cancer 19 MOTHER Hypertension 19 FATHER Kidney disease 19 FATHER Myocardial infarction 19 MOTHER G8 BROTHER Respiratory disorder No Family History of: AIDS CAD Over 55 Years Old, CVA, Diabetes, GI Disease, Renal Disease Review of Systems Time Seen by Provider: 12:08 Sepsis Event Evaluation Height, Weight, BMI Height: 5'1.00" Weight: 122lbs. 1.0oz. 55.538028od; 26.00 BMI Method:Estimated Exam Exam Vital Signs Date Time Temp Pulse Resp B/P (MAP) Pulse Ox O2 Delivery O2 Flow Rate FiO2 12/30/19 06:00 51 12 91/49 (63) 99 Room Air 12/30/19 05:00 56 15 109/56 (73) 98 Room Air 12/30/19 04:00 57 133/62 (85) 98 Room Air 12/30/19 03:00 66 150/68 (95) 99 Room Air 12/30/19 02:00 61 130/46 (74) 96 Room Air 12/30/19 01:00 70 12/30/19 01:00 69 121/63 (82) 99 Room Air 12/30/19 00:45 36.7 12/30/19 00:00 98 Room Air 12/30/19 00:00 82 111/60 (77) 98 Room Air 12/29/19 23:00 85 142/89 (106) 99 Room Air 12/29/19 22:00 80 135/72 (93) 97 Room Air 12/29/19 21:00 76 146/82 (103) 97 Room Air 12/29/19 20:00 98 Room Air 12/29/19 20:00 75 135/73 (93) 98 Room Air 12/29/19 19:41 37.1 76 16 114/86 (95) 96 Room Air 12/29/19 19:05 37.0 12/29/19 19:05 37.0 12/29/19 19:00 80 12/29/19 19:00 80 129/72 (91) 98 Room Air 12/29/19 18:00 87 149/91 (110) 97 Room Air 12/29/19 17:00 87 134/113 (120) 98 Room Air 12/29/19 16:00 37.0 12/29/19 16:00 87 168/91 (116) 98 Room Air 12/29/19 16:00 97 Room Air 12/29/19 15:00 80 166/86 (112) Room Air 12/29/19 14:00 78 153/85 (107) Room Air 12/29/19 13:00 89 108/62 (77) 97 Room Air 12/29/19 12:39 98 12/29/19 12:00 36.8 12/29/19 12:00 96 Room Air 12/29/19 12:00 88 164/80 (108) 97 Room Air 12/29/19 11:00 94 152/73 (99) 100 Room Air 12/29/19 10:00 98 188/99 (128) 98 Room Air 12/29/19 09:00 98 206/99 (134) 98 Room Air 12/29/19 08:00 99 182/103 (129) 98 Room Air 12/29/19 07:57 96 Room Air 12/29/19 07:00 37.1 12/29/19 07:00 99 188/106 (133) 97 Room Air 12/29/19 06:42 105 I & O 12/30/19 07:00 Intake Total 1925 ml Output Total 1400 ml Balance 525 ml Height & Weight Height: 5'1.00" Weight: 122lbs. 1.0oz. 55.062203je; 26.00 BMI Method:Estimated General Appearance: No Apparent Distress, Thin HEENT: Normal ENT Inspection Neck: Full Range of Motion, Normal Inspection Respiratory: Lungs Clear, No Accessory Muscle Use, No Respiratory Distress Cardiovascular: Regular Rate, Rhythm, No Murmur Capillary Refill: Less Than 3 Seconds Gastrointestinal: non tender, soft Extremity: Normal Capillary Refill, Normal Inspection Neurologic/Psychiatric: Alert, Oriented x3, No Motor/Sensory Deficits Skin: Normal Color, Warm/Dry Results Lab Laboratory Tests 12/29/19 00:23 12/29/19 03:32 12/30/19 03:15 12/30/19 04:00 Assessment/Plan Assessment/Plan Severe sepsis probably secondary to UTI -Check UA with C&S -CXR reviewed -Avendano culture -Start Vanco and Zosyn -Will give 2 liter bolus of LR which is more then the 30cc/kg of IVF -Check LA Hypoglycemia s/p D50 -Will start D5 at 150cc/kg -Continue Accu checks Q 1hr Hypotension -Give 2 liter LR bolus Metabolic encephalopathy - doubt CVA -Check Stat CT of head with and without contrast -Check ABG -Start CO2 monitor Severe hypokalemia -Replace and check mg and phos Bradycardia -Check troponin -Cardiology following KIM FUNEZ DO Dec 30, 2019 06:29
[2019-12-30] MEDS ORDERED: LACTATED RINGERS 1,000 ML IV ONE ×2 (06:30)
[2019-12-30] MEDS ORDERED: VANCOMYCIN 1 GM/NS 250 ML IVPB IV SCH ×2 (06:30)
--- NOTE | 2019-12-30 06:30 | NUR ---
0400: LAB NOTIFIED THIS RN OF BLOOD GLUCOSE OF 10. THIS RN RESPONDED TO ROOM IMMEDIATELY WITH AN AMP OF D50. PT IS UNRESPONSIVE TO VERBAL AND PAINFUL STIMULI. THIS RN ADMINISTERED AN AMP OF D50 AT THIS TIME WHILE GONZALO GREENE CHECKED BEDSIDE GLUCOSE LEVEL. BS: 175. BS. RECHECKED: 246. E-ICU BUTTON PRESSED AT THIS TIME AND DR. DOOLEY ON CAMERA TO ASSESS PT. PT CONTINUES TO BE UNRESPONSIVE. TEMP: 35.0, HR 56, RR: 10, B/P: 80'S SYSTOLIC AND 96% ON ROOM AIR. THIS RN UPDATED DOCTOR ON PT CONDITION AND MEDICATIONS ADMINISTERED PREVIOUSLY INCLUDING INSULIN PER SLIDING SCALE AND LONG ACTING. NEW ORDER RECEIVED FOR STAT REPEAT BMP AT THIS TIME. 0424: B.S: 123, DR. DOOLEY ON CAMERA AGAIN AT THIS TIME. THIS RN INFORMED DOCTOR THAT DESPITE BLOOD GLUCOSE LEVELS UP, PT IS ONLY BREATHING 8-10 TIMES A MINUTE. PT IS ABLE TO OPEN HER EYES NOW AND CAN MOVE HER LEGS BUT NOT SPEAKING OR FOLLOWING COMMANDS. NEW ORDER RECEIVED FOR NALOXONE 0.4 MG IV ONCE, NOW. MEDICATION ADMINISTERED ORDERED WITH NO RESPONSE TO PT'S MENTAL STATUS. LAB RESULTS BACK AND CALLED TO DR. DOOLEY. 0438: NEW ORDERS RECEIVED FOR IV POTASSIUM CHLORIDE 60 MEQ AND TO MEASURE MAGNESIUM. 0445: DR FUNEZ ON THE FLOOR AT THIS TIME. THIS RN UPDATED DOCTOR ON CURRENT SITUATION AND VITAL SIGNS. DOCTOR TO ASSESS PT. NEW ORDER RECEIVED FOR STAT HEAD CT WITHOUT CONTRAST. PT IS ABLE TO OPEN EYES AND MOVE ALL EXTREMITIES BUT FALLS ASLEEP IMMEDIATELY. PT TAKEN DOWN TO CT AT THIS TIME VIA BED, ACCOMPANIED BY THIS RN AND NOC ANALYST. 0500: THIS RN INFORMED DR. FUNEZ THAT PT CONTINUES TO ONLY BE RESPONSIVE TO PAINFUL STIMULI AND THEN IMMEDIATELY FALLS ASLEEP WITH WITH SNORING RESPIRATIONS NOW, RR ONLY 8-10. DR. FUNEZ AND R/T AT BEDSIDE AGAIN. ORAL AIRWAY ATTEMPTED AT THIS TIME BUT PT IMMEDIATELY COUGHED IT OUT. RESULTS FROM CT GIVEN TO DR. FUNEZ. NEW ORDER RECEIVED FOR STAT HEAD CT WITH CONTRAST, UA, UDS, STAT LABS, 2 LITER BOLUS, AND ABG. BEAR HUGGER AND WARM BLANKETS APPLIED TO PT. BS: 91, NEW ORDER RECEIVED FOR AN ADDITIONAL AMP OF D50 AND TO CHANGE FLUIDS TO D5NS AT 150 ML/HR. 0530:16 F FITZGERALD CATHETER INSERTED BY THIS RN AND UA SENT DOWN TO LAB.PT'S TEMPORAL TEMPERATURE ONLY READING 30 AT THIS TIME. RECTAL THERMOMETER INSERTED; 34.0 DEGREES NOTED ON MONITOR. DOCTOR DEE DEE NOTIFIED OF DECREASING TEMPERATURE. BS: 181. DR. FUNEZ AT BEDSIDE AGAIN. ABG RESULTS DISCUSSED WITH DR. FUNEZ. 0600: NEW ORDERS RECEIVED FOR BY-PAP / AND CO2 MONITORING. JOY, R/T NOTIFIED. 0700: DOCTOR FUNEZ PROCEEDING WITH INTUBATION AT THIS TIME. PT'S SISTER LUCIANO ATTEMPTED TO BE NOTIFIED. THIS RN LEFT A VOICEMAIL.
--- NOTE | 2019-12-30 06:52 | NUR ---
Vancomycin - Loading dose: 1gm x 1 now, then 750mg every 12 hours. Trough Wednesday, 01/01 @ 0600.
[2019-12-30] MEDS ORDERED: VANCOMYCIN 1 GM/NS 250 ML IVPB IV ONE ×2 (07:00)
--- NOTE | 2019-12-30 07:15 | NUR ---
Pt's B/p continues to decrease during bedside report. Dr. Bright informed. Decision made to intubate. 0747 - 4mg of Versed 0748 - 5mL of Propofol 0751 - Pt intubated by Dr Bright. Size 8 ET tube. 21 at the lip. Confirmed placement with Chest X-Ray. 0800 - OG tube inserted. Placement confirmed with Chest X-Ray. 0815 - 5mL of Propofol 0818 - 4mg Versed 0824 - Central Line placed by Dr Bright. Placement confirmed with Chest X-Ray. 0830 - 50mcg Fentanyl. B/P continues to Decrease. Dopamine started and titrated per protocol. Will continue to monitor.
[2019-12-30 07:22] LABS: ALANINE AMINOTRANSFERASE 10 U/L (0-55); ALKALINE PHOSPHATASE 63 U/L (40-136); BILIRUBIN,TOTAL 0.2 MG/DL (0.1-1.0); BUN/CREATININE RATIO 17; CALCIUM 8.1 MG/DL (8.5-10.1); CARBON DIOXIDE 20 MMOL/L (21-32); CHLORIDE 112 MMOL/L (98-107); CREATININE SERUM 0.82 MG/DL (0.60-1.30); GFR ESTIMATED > 60; GLUCOSE 181 MG/DL (70-105); MAGNESIUM 1.7 MG/DL (1.6-2.4); PHOSPHORUS 4.5 MG/DL (2.3-4.7); POTASSIUM 3.3 MMOL/L (3.6-5.0); SODIUM 139 MMOL/L (135-145); TOTAL PROTEIN 5.4 GM/DL (6.4-8.2)
[2019-12-30 07:32] LABS: ABG BASE EXCESS -4.7 MMOL/L (-2.5-2.5); ABG OXYGEN SATURATION 96 % (94-100); ABG PCO2 36 MMHG (35-45); ABG PH 7.35 (7.37-7.43); ABG PO2 79 MMHG (79-93); ABG TCO2 21.6 MMOL/L (21.0-31.0)
--- NOTE | 2019-12-30 07:32 | Diagnostic Imaging Report ---
PROCEDURE: CT head without contrast. TECHNIQUE: Multiple contiguous axial images were obtained through the brain without the use of intravenous contrast. Auto Exposure Controls were utilized during the CT exam to meet ALARA standards for radiation dose reduction. INDICATION: Lethargic, shortness of breath. EXAMINATION: CT brain without contrast 12/30/2019 Comparison to 04/10/2020 FINDINGS: There are diffuse chronic ischemic changes in a periventricular distribution with no acute infarcts appreciated. No acute hemorrhage is seen. There is atrophy. No mass, mass effect, or midline shift. No hydrocephalus. No interval change appreciated since recent examination. The osseous structures are unremarkable. No acute sinus disease. IMPRESSION: 1. Stable chronic changes. No acute abnormality. Findings agree with the preliminary report. Dictated by: Dictated on workstation # [id number]
[2019-12-30] MEDS ORDERED: proPOfol 200 MG/20 ML (DIPRIVAN) VIAL IV ONE (07:39)
[2019-12-30 07:43] LABS: FREE T4 (FREE THYROXINE) 0.86 NG/DL (0.70-1.48)
[2019-12-30 07:45] LABS: ALLENS TEST YES-POS; INSPIRED O2 ROOM AIR; PATIENT TEMP 34.5; VENTILATOR NO
--- NOTE | 2019-12-30 08:54 | Pulmonary Procedures ---
Pulmonary Procedures Date of Procedure Date of Service: Dec 30, 2019 Lumen: triple (US guided) Central Line Procedure: betadine prep, sterile drapes applied, sterile dressing applied Position: internal jugular (R) Anesthesia: local Volume Anesthetic (ccs): 5 Complications: none Post Position: sutured, good blood return, position confirmed w/ CXR KIM FUNEZ DO Dec 30, 2019 08:54
--- NOTE | 2019-12-30 08:55 | Pulmonary Procedures ---
Pulmonary Procedures Date of Procedure Date of Service: Dec 30, 2019 Reason for Intubation: Acute respiratory failure Time of Intubation: 08:54 Intubation Method: nasotracheal-left, nasothracheal-right, orotracheal Tube Size: 8 Medications: Fentanyl, Propofol Positive End Tide CO2: Yes Breath Sounds after Intubation: bilateral-equal Intubation Complications: no complications Post Intubation Xray: Yes KIM FUNEZ DO Dec 30, 2019 08:55
[2019-12-30] MEDS ORDERED: DOPamine DRIP 250 ML IV ONE (08:59)
--- NOTE | 2019-12-30 08:59 | Diagnostic Imaging Report ---
INDICATION: Dyspnea, line placement. COMPARISON: 12/30/2019. DISCUSSION: Single portable upright view of the chest was obtained. New enteric tube with tip in the gastric fundus. New endotracheal tube with tip in the mid trachea in good position. Right-sided port is stable. New left IJ central venous catheter with tip in the SVC. No pneumothorax. No consolidation. Normal heart size. IMPRESSION: 1. Support lines and catheters appear to be in good position. No adverse interval change. Dictated by: Dictated on workstation # [id number]
[2019-12-30] MEDS ORDERED: amLODIPine 10 MG (NORVASC) TAB PO SCH (09:00)
[2019-12-30] MEDS ORDERED: PIPERACILLIN/TAZOBACTAM (BULK) 4.5 GM in NS (IVPB) 100 ML IV NR (09:00)
[2019-12-30] MEDS ORDERED: DOPamine DRIP 250 ML IV SCH (09:00)
--- NOTE | 2019-12-30 09:02 | Pulmonary Progress Note ---
Standard Progress Note Progress Notes Date Seen by Provider: Dec 30, 2019 Time Seen by Provider: 08:55 Called back to bedside secondary to worsening lethargy, hypotension, and bradycardia. Pt does not appear to be able to control airway. Will proceed with emergent intubation and central line placement. RN states she is not able to get a peripheral IV. Currently 2 RNs at bedside attempting IVs. Will proceed with intubation and central line placement. All labs and radiology reviewed. Assessment & Plan Acute respiratory failure with decreased MS, unable to control airway, and periods of apnea. -Check ABG 1hour after intubation Severe sepsis probably secondary to UTI -Check UA with C&S -CXR reviewed -Avendano culture -Start Vanco and Zosyn -Will give 2 liter bolus of LR which is more then the 30cc/kg of IVF -Check LA Hypoglycemia s/p D50 - D5 at 150cc/kg -Continue Accu checks Q 1hr -levemier on hold Hypotension -Give total 3 liter LR bolus -Will start dopamine secondary to bradycardia -Troponin is pending -TSH, T4 is pending Metabolic encephalopathy - doubt CVA -Check Stat CT of head with and without contrast -Start CO2 monitor -Neurontin level pending Severe hypokalemia -Replace and check mg and phos Bradycardia -Check troponin -Cardiology following 60min spent with pt not including consult this morning or procedures. Critical Care: Critically Ill Patient Time spent with patient (mins): 60 Focused Exam Lactate Level 12/30/19 06:36: Lactic Acid Level 0.92 Lactic Acid Level Laboratory Tests Test 12/30/19 06:36 Lactic Acid Level 0.92 MMOL/L (0.50-2.00) KIM FUNEZ DO Dec 30, 2019 09:02
[2019-12-30 09:10] LABS: ABG BASE EXCESS -4.3 MMOL/L (-2.5-2.5); ABG OXYGEN SATURATION 85 % (94-100); ABG PCO2 36 MMHG (35-45); ABG PH 7.36 (7.37-7.43); ABG PO2 51 MMHG (79-93); ABG TCO2 21.6 MMOL/L (21.0-31.0)
[2019-12-30] MEDS: PROPOFOL DRIP (ICU) 100 ML IV SCH ×3 (09:15→19:37)
[2019-12-30 09:16] LABS: ALLENS TEST YES-POS; INSPIRED O2 60%; PATIENT TEMP 35.9; VENTILATOR YES
--- NOTE | 2019-12-30 09:18 | Diagnostic Imaging Report ---
INDICATION: Dyspnea. Hypertensive urgency. EXAMINATION: Chest 12/30/2019 COMPARISON made to 12/28/2019 FINDINGS: Single view of the chest. There is a right central line with the tip unchanged from previous imaging. Postoperative change along the cervical spine, unchanged as well. The heart and the pulmonary vasculature are stable. Recorder device overlies the left hemithorax. No pneumothorax. No effusions. IMPRESSION: Support tubes and other postoperative changes as above. No acute cardiopulmonary process. Dictated by: Dictated on workstation # [id number]
[2019-12-30] MEDS: PANTOPRAZOLE 20 MG TABLET (PROTONIX) PO SCH (09:39)
[2019-12-30] MEDS: ASPIRIN E.C. 81 MG (ECOTRIN) TAB PO SCH (09:39)
[2019-12-30] MEDS ORDERED: HOLD METFORMIN - RECEIVED CONTRAST 20 ML VIAL IV SCH (09:45)
[2019-12-30] MEDS ORDERED: IOHEXOL 350 MG/ML 100 ML (OMNIPAQUE 350) VIAL IV ONE (09:45)
[2019-12-30] MEDS ORDERED: NS 100 ML (IVPB) BAG IV ONE (09:45)
--- NOTE | 2019-12-30 10:11 | Occ Therapy Progress Note ---
Therapy Progress Note OT orders received but pt now intubated and unable to participate. Will follow. ANKUSH MCGILL OT Dec 30, 2019 10:10
--- NOTE | 2019-12-30 11:54 | Progress Note - Cardiology ---
Cardiology SOAP Progress Note Subjective: Unable to provide any history because on mech vent Objective: I&O/Vital Signs 12/30/19 12/30/19 12/30/19 12/30/19 00:00 00:00 00:45 01:00 Temp 36.7 Pulse 82 69 B/P (MAP) 111/60 (77) 121/63 (82) Pulse Ox 98 98 99 O2 Delivery Room Air Room Air Room Air 12/30/19 12/30/19 12/30/19 12/30/19 01:00 02:00 03:00 04:00 Pulse 70 61 66 B/P (MAP) 130/46 (74) 150/68 (95) Pulse Ox 96 99 94 O2 Delivery Room Air Room Air Room Air 12/30/19 12/30/19 12/30/19 12/30/19 04:00 05:00 05:57 06:00 Temp 35.0 Pulse 57 56 51 Resp 15 12 B/P (MAP) 133/62 (85) 109/56 (73) 91/49 (63) Pulse Ox 98 98 99 O2 Delivery Room Air Room Air Room Air 12/30/19 12/30/19 12/30/19 12/30/19 06:30 07:00 07:00 07:58 Temp 34.1 34.5 Pulse 56 57 71 Resp 8 19 B/P (MAP) 91/49 (63) Pulse Ox 98 100 O2 Delivery Room Air FiO2 60 12/30/19 12/30/19 12/30/19 12/30/19 08:00 09:00 09:06 09:15 Temp 35.0 35.8 Pulse 70 55 55 Resp 16 18 18 B/P (MAP) 160/89 (112) 83/51 (62) 77/48 Pulse Ox 99 100 100 O2 Delivery Mechanical Ventilator Mechanical Ventilator O2 Flow Rate 60.00 60.00 FiO2 60 12/30/19 12/30/19 12/30/19 09:39 10:00 11:00 Temp 36.0 36.1 Pulse 61 58 Resp 17 18 B/P (MAP) 85/47 97/55 (69) 85/53 (64) Pulse Ox 99 99 O2 Delivery Mechanical Ventilator Mechanical Ventilator O2 Flow Rate 60.00 30.00 12/30/19 00:00 Intake Total 925 ml Output Total 1400 ml Balance -475 ml Weight (Pounds): 122 Weight (Ounces): 1.0 Weight (Calculated Kilograms): [id number] Constitutional: other (intubated, sedated, and on mech vent) Respiratory: No accessory muscle use, No respiratory distress; chest expansion is symmetric, chest is bilaterally symmetric, other (fair to good bilat air entry) Cardiovascular: No JVD; tachycardia, S1 and S2, systolic murmur (faint PAT at card base) Gastrointestional: soft; No guarding; audible bowel sounds Extremities: No clubbing, No cyanosis; no lower extremity edema bilateral Neurologic/Psychiatric: other (on mech vent, sedated, unable to participate in neuro exam) Skin: No rash on exposed areas, No ulcerations on exposed areas Results/Procedures: Labs Laboratory Tests 12/29/19 15:59: Glucometer 205H 12/29/19 19:53: Glucometer 152H 12/30/19 00:10: Glucometer 328H 12/30/19 03:15: White Blood Count 20.4H, Red Blood Count 3.98L, Hemoglobin 12.0, Hematocrit 35, Mean Corpuscular Volume 87, Mean Corpuscular Hemoglobin 30, Mean Corpuscular Hemoglobin Concent 35, Red Cell Distribution Width 13.0, Platelet Count 339, Mean Platelet Volume 9.7, Neutrophils (%) (Auto) 44, Lymphocytes (%) (Auto) 47H, Monocytes (%) (Auto) 6, Eosinophils (%) (Auto) 3, Basophils (%) (Auto) 0, Neutrophils # (Auto) 9.1H, Lymphocytes # (Auto) 9.6H, Monocytes # (Auto) 1.2H, Eosinophils # (Auto) 0.5H, Basophils # (Auto) 0.1, Sodium Level 142, Potassium Level 2.7L, Chloride Level 111H, Carbon Dioxide Level 21, Anion Gap 10, Blood Urea Nitrogen 14, Creatinine 0.85, Estimat Glomerular Filtration Rate > 60, BUN/Creatinine Ratio 16, Glucose Level 10*L, Calcium Level 8.8, Phosphorus Level 3.3, Magnesium Level 1.7 12/30/19 04:00: Sodium Level 139, Potassium Level 2.8L, Chloride Level 110H, Carbon Dioxide Level 21, Anion Gap 8, Blood Urea Nitrogen 14, Creatinine 0.84, Estimat G lomerular Filtration Rate > 60, BUN/Creatinine Ratio 17, Glucose Level 188H, Calcium Level 8.3L 12/30/19 04:01: Glucometer 175H 12/30/19 04:04: Glucometer 246H 12/30/19 04:24: Glucometer 123H 12/30/19 04:45: Blood Gas Puncture Site LEFT RADIAL, Blood Gas Patient Temperature 35.2, Arterial Blood pH 7.39, Arterial Blood Partial Pressure CO2 37, Arterial Blood Partial Pressure O2 97H, Arterial Blood HCO3 22L, Arterial Blood Total CO2 23.2, Arterial Blood Oxygen Saturation 96, Arterial Blood Base Excess -2.6L, Antonio Test YES-POS, Blood Gas Ventilator Setting NO, Blood Gas Inspired Oxygen ROOM AIR 12/30/19 04:48: Glucometer 91 12/30/19 05:24: Glucometer 181H 12/30/19 05:53: Glucometer 188H 12/30/19 06:00: Urine Color YELLOW, Urine Clarity CLOUDY, Urine pH 5.5, Urine Specific Angelica 1.025H, Urine Protein 3+H, Urine Glucose (UA) 1+H, Urine Ketones NEGATIVE, Urine Nitrite NEGATIVE, Urine Bilirubin NEGATIVE, Urine Urobilinogen 0.2, Urine Leukocyte Esterase 2+H, Urine RBC (Auto) 3+H, Urine RBC 10-25H, Urine WBC TNTCH, Urine Crystals NONE, Urine Bacteria LARGEH, Urine Casts NONE, Urine Mucus MODERATEH, Urine Culture Indicated YES, Urine Opiates Screen NEGATIVE, Urine Ox ycodone Screen NEGATIVE, Urine Methadone Screen NEGATIVE, Urine Propoxyphene Screen NEGATIVE, Urine Barbiturates Screen NEGATIVE, Ur Tricyclic Antidepressants Screen NEGATIVE, Urine Phencyclidine Screen NEGATIVE, Urine Amphetamines Screen NEGATIVE, Urine Methamphetamines Screen NEGATIVE, Urine Benzodiazepines Screen NEGATIVE, Urine Cocaine Screen NEGATIVE, Urine Cannabinoids Screen NEGATIVE 12/30/19 06:30: 12/30/19 06:36: Sodium Level 139, Potassium Level 3.3L, Chloride Level 112H, Carbon Dioxide Level 20L, Anion Gap 7, Blood Urea Nitrogen 14, Creatinine 0.82, Estimat Glomerular Filtration Rate > 60, BUN/Creatinine Ratio 17, Glucose Level 181H, Lactic Acid Level 0.92, Calcium Level 8.1L, Corrected Calcium 8.9, Phosphorus Level 4.5, Magnesium Level 1.7, Total Bilirubin 0.2, Aspartate Amino Transf (AST/SGOT) 11, Alanine Aminotransferase (ALT/SGPT) 10, Alkaline Phosphatase 63, Troponin I < 0.028, Total Protein 5.4L, Albumin 3.0L, Thyroid Stimulating Hormone (TSH) 0.56, Free Thyroxine 0.86 12/30/19 06:49: Glucometer 170H 12/30/19 07:25: Blood Gas Puncture Site LT RAD, Blood Gas Patient Temperature 34.5, Arterial Blood pH 7.35L, Arterial Blood Partial Pressure CO2 36, Arterial Blood Partial Pressure O2 79, Arterial Blood HCO3 20L, Arterial Blood Total CO2 21.6, Arterial Blood Oxygen Saturation 96, Arterial Blood Base Excess -4.7L, Antonio Test YES- POS, Blood Gas Ventilator Setting NO, Blood Gas Inspired Oxygen ROOM AIR, Ammonia 22, Triglycerides Level 119 12/30/19 09:03: Glucometer 175H 12/30/19 09:08: Blood Gas Puncture Site LT RAD, Blood Gas Patient Temperature 35.9, Arterial Blood pH 7.36L, Arterial Blood Partial Pressure CO2 36, Arterial Blood Partial Pressure O2 51L, Arterial Blood HCO3 20L, Arterial Blood Total CO2 21.6, Arterial Blood Oxygen Saturation 85L, Arterial Blood Base Excess -4.3L, Antonio Te st YES-POS, Blood Gas Ventilator Setting YES, Blood Gas Inspired Oxygen 60% 12/30/19 10:49: Glucometer 259H Microbiology 12/30/19 Influenza Types A,B Antigen (RACHELL) - Final, Complete Laboratory Tests 12/29/19 00:23 12/29/19 03:32 12/30/19 03:15 12/30/19 04:00 12/30/19 06:36 A/P: Assessment: Probable septic shock from UTI H/O syncope, mostly postural. S/P ILR implant on 11-10-2019. 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 Underwent stenting of mid LAD Resolute Integrity 2.5x[address] Cohen on 07/13/15; Last cath on 01/20/19: patent mid LAD stent with 50% post-stent (FFR 0.86), 50% distal LCX OM and D1 and prox and distal RCA. LVEF 65%, LVEDP 15 mmHg (essentially unchanged compared to previous caths). MPI of 04-04-19 showed no evidence of any signif ischemia or infarction. 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 Court Saha of Nephrology services Plan: * Has had deterioration of status since admission (see above) * Support bp with vasopressors, if needed * Replenish lytes * Monitor labs RICH FELIX MD FACP FAC CCDS Dec 30, 2019 11:54
--- NOTE | 2019-12-30 12:59 | Progress Note ---
Subjective Subjective Date Seen by Provider: Dec 30, 2019 Time Seen by Provider: 11:46 59 year-old female with worsening of condition. Patient was intubated this morning due to decreased ability to protect her airway. Of note her glucose was 10 which was brought up with D50. Patient was also found to be hypotensive, she was started on dopamine. Since it appears she has septic likely due to UTI she was given >30cc/kg fluid bolus. She is sedated on propofol. Review of Systems ROS Unable to Obtain: sedated ,intubated Objective Exam Vital Signs Vital Signs Date Time Temp Pulse Resp B/P (MAP) Pulse Ox O2 Delivery O2 Flow Rate FiO2 12/30/19 12:47 67 12/30/19 12:00 36.7 59 18 120/65 (83) 99 Mechanical Ventilator 30.00 12/30/19 11:00 36.1 58 18 85/53 (64) 99 Mechanical Ventilator 30.00 12/30/19 10:00 36.0 61 17 97/55 (69) 99 Mechanical Ventilator 60.00 12/30/19 09:39 85/47 12/30/19 09:15 77/48 12/30/19 09:06 55 18 100 60 12/30/19 09:00 35.8 55 18 83/51 (62) 100 Mechanical Ventilator 60.00 12/30/19 08:00 35.0 70 16 160/89 (112) 99 Mechanical Ventilator 60.00 12/30/19 07:58 71 19 100 60 12/30/19 07:00 57 12/30/19 07:00 34.5 56 8 91/49 (63) 98 Room Air 12/30/19 06:30 34.1 12/30/19 06:00 51 12 91/49 (63) 99 Room Air 12/30/19 05:57 35.0 12/30/19 05:00 56 15 109/56 (73) 98 Room Air 12/30/19 04:00 57 133/62 (85) 98 Room Air 12/30/19 04:00 94 Room Air 12/30/19 03:00 66 150/68 (95) 99 Room Air 12/30/19 02:00 61 130/46 (74) 96 Room Air 12/30/19 01:00 70 12/30/19 01:00 69 121/63 (82) 99 Room Air 12/30/19 00:45 36.7 12/30/19 00:00 98 Room Air 12/30/19 00:00 82 111/60 (77) 98 Room Air 12/29/19 23:00 85 142/89 (106) 99 Room Air 12/29/19 22:00 80 135/72 (93) 97 Room Air 12/29/19 21:00 76 146/82 (103) 97 Room Air 12/29/19 20:00 98 Room Air 12/29/19 20:00 75 135/73 (93) 98 Room Air 12/29/19 19:41 37.1 76 16 114/86 (95) 96 Room Air 12/29/19 19:05 37.0 12/29/19 19:05 37.0 12/29/19 19:00 80 12/29/19 19:00 80 129/72 (91) 98 Room Air 12/29/19 18:00 87 149/91 (110) 97 Room Air 12/29/19 17:00 87 134/113 (120) 98 Room Air 12/29/19 16:00 37.0 12/29/19 16:00 87 168/91 (116) 98 Room Air 12/29/19 16:00 97 Room Air 12/29/19 15:00 80 166/86 (112) Room Air 12/29/19 14:00 78 153/85 (107) Room Air 12/29/19 13:00 89 108/62 (77) 97 Room Air I & O 12/30/19 07:00 Intake Total 1925 ml Output Total 1500 ml Balance 425 ml General Appearance: No Apparent Distress, Thin Eyes: Bilateral Eye Normal Inspection, Bilateral Eye PERRL Neck: Normal Inspection Respiratory: Lungs Clear, No Accessory Muscle Use (intubated) Cardiovascular: Regular Rate, Rhythm, No Murmur Gastrointestinal: Non Tender, Soft Extremity: Normal Capillary Refill, Normal Inspection Neurologic/Psychiatric: Alert, Oriented x3, No Motor/Sensory Deficits Skin: Normal Color, Warm/Dry Results Lab Laboratory Tests 12/29/19 15:59: Glucometer 205H 12/29/19 19:53: Glucometer 152H 12/30/19 00:10: Glucometer 328H 12/30/19 03:15: White Blood Count 20.4H, Red Blood Count 3.98L, Hemoglobin 12.0, Hematocrit 35, Mean Corpuscular Volume 87, Mean Corpuscular Hemoglobin 30, Mean Corpuscular Hemoglobin Concent 35, Red Cell Distribution Width 13.0, Platelet Count 339, Mean Platelet Volume 9.7, Neutrophils (%) (Auto) 44, Lymphocytes (%) (Auto) 47H, Monocytes (%) (Auto) 6, Eosinophils (%) (Auto) 3, Basophils (%) (Auto) 0, Neutrophils # (Auto) 9.1H, Lymphocytes # (Auto) 9.6H, Monocytes # (Auto) 1.2H, Eosinophils # (Auto) 0.5H, Basophils # (Auto) 0.1, Sodium Level 142, Potassium Level 2.7L, Chloride Level 111H, Carbon Dioxide Level 21, Anion Gap 10, Blood Urea Nitrogen 14, Creatinine 0.85, Estimat Glomerular Filtration Rate > 60, BUN/Creatinine Ratio 16, Glucose Level 10*L, Calcium Level 8.8, Phosphorus Level 3.3, Magnesium Level 1.7 12/30/19 04:00: Sodium Level 139, Potassium Level 2.8L, Chloride Level 110H, Carbon Dioxide Level 21, Anion Gap 8, Blood Urea Nitrogen 14, Creatinine 0.84, Estimat Glomerular Filtration Rate > 60, BUN/Creatinine Ratio 17, Glucose Level 188H, Calcium Level 8.3L 12/30/19 04:01: Glucometer 175H 12/30/19 04:04: Glucometer 246H 12/30/19 04:24: Glucometer 123H 12/30/19 04:45: Blood Gas Puncture Site LEFT RADIAL, Blood Gas Patient Temperature 35.2, Arterial Blood pH 7.39, Arterial Blood Partial Pressure CO2 37, Arterial Blood Partial Pressure O2 97H, Arterial Blood HCO3 22L, Arterial Blood Total CO2 23.2, Arterial Blood Oxygen Saturation 96, Arterial Blood Base Excess -2.6L, Antonio Test YES-POS, Blood Gas Ventilator Setting NO, Blood Gas Inspired Oxygen ROOM AIR 12/30/19 04:48: Glucometer 91 12/30/19 05:24: Glucometer 181H 12/30/19 05:53: Glucometer 188H 12/30/19 06:00: Urine Color YELLOW, Urine Clarity CLOUDY, Urine pH 5.5, Urine Specific Schurz 1.025H, Urine Protein 3+H, Urine Glucose (UA) 1+H, Urine Ketones NEGATIVE, Urine Nitrite NEGATIVE, Urine Bilirubin NEGATIVE, Urine Urobilinogen 0.2, Urine Leukocyte Esterase 2+H, Urine RBC (Auto) 3+H, Urine RBC 10-25H, Urine WBC TNTCH, Urine Crystals NONE, Urine Bacteria LARGEH, Urine Casts NONE, Urine Mucus MODERATEH, Urine Culture Indicated YES, Urine Opiates Screen NEGATIVE, Urine Oxycodone Screen NEGATIVE, Urine Methadone Screen NEGATIVE, Urine Propoxyphene Screen NEGATIVE, Urine Barbiturates Screen NEGATIVE, Ur Tricyclic Antidepressants Screen NEGATIVE, Urine Phencyclidine Screen NEGATIVE, Urine Amphetamines Screen NEGATIVE, Urine Methamphetamines Screen NEGATIVE, Urine Benzodiazepines Screen NEGATIVE, Urine Cocaine Screen NEGATIVE, Urine Cannabinoids Screen NEGATIVE 12/30/19 06:30: 12/30/19 06:36: Sodium Level 139, Potassium Level 3.3L, Chloride Level 112H, Carbon Dioxide Level 20L, Anion Gap 7, Blood Urea Nitrogen 14, Creatinine 0.82, Estimat Glomerular Filtration Rate > 60, BUN/Creatinine Ratio 17, Glucose Level 181H, Lactic Acid Level 0.92, Calcium Level 8.1L, Corrected Calcium 8.9, Phosphorus Level 4.5, Magnesium Level 1.7, Total Bilirubin 0.2, Aspartate Amino Transf (AST/SGOT) 11, Alanine Aminotransferase (ALT/SGPT) 10, Alkaline Phosphatase 63, Troponin I < 0.028, Total Protein 5.4L, Albumin 3.0L, Thyroid Stimulating Hormone (TSH) 0.56, Free Thyroxine 0.86 12/30/19 06:49: Glucometer 170H 12/30/19 07:25: Blood Gas Puncture Site LT RAD, Blood Gas Patient Temperature 34.5, Arterial Blood pH 7.35L, Arterial Blood Partial Pressure CO2 36, Arterial Blood Partial Pressure O2 79, Arterial Blood HCO3 20L, Arterial Blood Total CO2 21.6, Arterial Blood Oxygen Saturation 96, Arterial Blood Base Excess -4.7L, Antonio Test YES- POS, Blood Gas Ventilator Setting NO, Blood Gas Inspired Oxygen ROOM AIR, Ammonia 22, Triglycerides Level 119 12/30/19 09:03: Glucometer 175H 12/30/19 09:08: Blood Gas Puncture Site LT RAD, Blood Gas Patient Temperature 35.9, Arterial Blood pH 7.36L, Arterial Blood Partial Pressure CO2 36, Arterial Blood Partial Pressure O2 51L, Arterial Blood HCO3 20L, Arterial Blood Total CO2 21.6, Arterial Blood Oxygen Saturation 85L, Arterial Blood Base Excess -4.3L, Antonio Test YES-POS, Blood Gas Ventilator Setting YES, Blood Gas Inspired Oxygen 60% 12/30/19 10:49: Glucometer 259H 12/30/19 11:52: Glucometer 296H Microbiology 12/30/19 Influenza Types A,B Antigen (RACHELL) - Final, Complete Assessment/Plan Assessment/Plan Assessment and Plan 12/30/19- intubated for decreased ability to protect airway. On dopamine for hypotension. Propofol for sedation- She is on vancomycin and zosyn for sepsis. Awaiting urine culture. -replacing K prn. Cr normal. Pharmacy is obtaining vanc troughs. Dr. Bright consulted for ICU care. Dispo: guarded. Will continue to monitor. Problems: (1) Acute respiratory failure (2) Sepsis secondary to UTI (3) Hypoglycemia (4) Hypokalemia Clinical Quality Measures DVT/VTE Risk/Contraindication: Risk Factor Score Per Nursin RFS Level Per Nursing on Admit: 2=Moderate SONIA BARRETT MD Dec 30, 2019 12:59
--- NOTE | 2019-12-30 13:06 | Diagnostic Imaging Report ---
INDICATION: Rule out CVA. Patient on a ventilator EXAMINATION: CT angiogram of brain from 12/30/[address] brain from 12/30/2019 at 5:35 a.m. FINDINGS: The visualized lung apices demonstrate no acute normality. An ET tube and a feeding tube are noted within the visualized trachea and esophagus. There is fluid and/or debris within the nasopharynx, hypopharynx and oropharynx. Precontrast imaging stable from recent. Postcontrast images demonstrate no abnormally enhancing masses. CTA: Within the visualized aspects of the thorax, the visualized aorta grossly unremarkable. The left subclavian artery does demonstrate atherosclerotic disease just distal to the origin. There is a focus of at least 50% stenosis. There is no focal occlusion. More distally the subclavian artery does appear to be patent. The left common carotid artery is patent. The left internal carotid artery at its origin does contain atherosclerotic disease. There is tortuosity in the region of the origin. No significant stenosis is appreciated. Left intracranial carotid arteries bilaterally demonstrate diminished visualization. It is unclear if this is a technical process. No obvious occlusion is seen but the carotid arteries at the skull base are difficult to characterize and therefore if there is continued clinical question, MRI with MRA recommended. More distally, both internal carotid arteries appear patent, with both middle cerebral arteries also patent. The anterior cerebral arteries are bilaterally patent. No aneurysmal dilatations are appreciated. Basilar artery and vertebral arteries unremarkable for significant stenosis or occlusion. Posterior cerebral arteries are bilaterally patent as well. The visualized prevertebral soft tissues demonstrate no evidence for acute abnormality. There are multiple nodularities within the thyroid with calcified patient also noted, left worse than right. Sonographic catheterization recommended if not previously performed on a nonemergent basis. There is prominence in the region of the oropharynx not mentioned above, nonspecific. Most likely this is due to displacement of the tongue secondary to the feeding tube. However this could be correlated clinically to exclude an abnormality in the left oropharynx/hypopharynx. The osseous structures demonstrate no acute abnormalities. IMPRESSION: 1. No acute process within the brain with chronic changes as above. 2. CTA imaging demonstrates no occlusive process, no aneurysmal dilatation. Atherosclerotic changes as discussed above. The intracranial proximal internal carotid arteries at the skull base are poorly visualized. It is unclear if this is a technical abnormality. No focal occlusion is seen but if there is continued clinical concern, MRI and MRA of the region recommended for better evaluation of these vessels. 3. Other findings within the soft tissues, as described above. Dictated by: Dictated on workstation # [id number]
[2019-12-30] MEDS: PIPERACILLIN/TAZOBACTAM (BULK) 4.5 GM in NS (IVPB) 100 ML IV SCH (14:04)
[2019-12-30] MEDS: VANCOMYCIN 750 MG/NS 250 ML IVPB IV SCH ×2 (18:23)
[2019-12-30] MEDS: inSUlin REGULAR TPN/DRIP 250 UNITS/NS 250 ML IV SCH ×2 (21:03)
[2019-12-30] MEDS: ENOXAPARIN 40 MG/0.4 ML (LOVENOX) SYR SC SCH (21:03)
[2019-12-30] MEDS ORDERED: NS IV 1000 ML 1,000 ML ONE (23:01)
[2019-12-31] VITALS (23 sets, daily range): BP systolic 117–181; BP diastolic 60–92
[2019-12-31] MEDS: inSUlin ASPART (NovoLOG) 1 UNIT/0.01 ML (CHARGE PER UNIT) SC SCH ×5 (00:07→23:42)
[2019-12-31] MEDS: PIPERACILLIN/TAZOBACTAM (BULK) 4.5 GM in NS (IVPB) 100 ML IV SCH ×4 (00:08→22:16)
[2019-12-31] MEDS ORDERED: NS IV 1000 ML 1,000 ML IV SCH (00:15)
[2019-12-31] MEDS: PROPOFOL DRIP (ICU) 100 ML IV SCH ×2 (00:19→04:10)
[2019-12-31 03:26] LABS: BASOPHILS # (AUTO) 0.1 10^3/uL (0.0-0.1); BASOPHILS % (AUTO) 1 % (0-10); EOSINOPHILS # (AUTO) 0.4 10^3/uL (0.0-0.3); EOSINOPHILS % (AUTO) 4 % (0-10); HEMATOCRIT 30 % (35-52); HEMOGLOBIN 10.1 G/DL (11.5-16.0); LYMPHOCYTES # (AUTO) 2.8 X 10^3 (1.0-4.0); LYMPHOCYTES % (AUTO) 24 % (12-44); MEAN CORPUSCULAR HEMOGLOBIN 30 PG (25-34); MEAN CORPUSCULAR HGB CONC 34 G/DL (32-36); MEAN CORPUSCULAR VOLUME 91 FL (80-99); MEAN PLATELET VOLUME 10.3 FL (7.4-10.4); MONOCYTES # (AUTO) 0.4 X 10^3 (0.0-1.0); MONOCYTES % (AUTO) 3 % (0-12); NEUTROPHILS % (AUTO) 69 % (42-75); PLATELET COUNT 202 10^3/uL (130-400); RED CELL DISTRIBUTION WIDTH 13.2 % (10.0-14.5); WHITE BLOOD COUNT 11.6 10^3/uL (4.3-11.0)
[2019-12-31 03:27] LABS: ABG BASE EXCESS -6.8 MMOL/L (-2.5-2.5); ABG OXYGEN SATURATION 96 % (94-100); ABG PCO2 25 MMHG (35-45); ABG PH 7.44 (7.37-7.43); ABG PO2 76 MMHG (79-93); ABG TCO2 17.3 MMOL/L (21.0-31.0)
[2019-12-31 03:30] LABS: ALLENS TEST YES-POS
[2019-12-31 03:31] LABS: INSPIRED O2 21%; VENTILATOR YES
[2019-12-31] MEDS: CATHETER FLUSH 10 ML SYR IV SCH (03:42)
[2019-12-31 03:46] LABS: BUN/CREATININE RATIO 11; CALCIUM 7.9 MG/DL (8.5-10.1); CARBON DIOXIDE 16 MMOL/L (21-32); CHLORIDE 120 MMOL/L (98-107); CREATININE SERUM 0.82 MG/DL (0.60-1.30); GFR ESTIMATED > 60; GLUCOSE 240 MG/DL (70-105); MAGNESIUM 1.5 MG/DL (1.6-2.4); POTASSIUM 3.6 MMOL/L (3.6-5.0); SODIUM 144 MMOL/L (135-145)
--- NOTE | 2019-12-31 05:39 | Pulmonary Progress Note ---
Subjective Time Seen by a Provider: 05:36 Subjective/Events-last exam Pt appears to be doing better. Sepsis Event Evaluation Height, Weight, BMI Height: 5'1.00" Weight: 122lbs. 1.0oz. 55.876372zl; 26.00 BMI Method:Estimated Focused Exam Lactate Level 12/30/19 06:36: Lactic Acid Level 0.92 Exam Exam Vital Signs Date Time Temp Pulse Resp B/P (MAP) Pulse Ox O2 Delivery O2 Flow Rate FiO2 12/31/19 04:10 37.42099 69 15 154/92 100 Mechanical Ventilator 12/31/19 04:00 97 Mechanical Ventilator 21 12/31/19 03:00 75 34 100 21 12/31/19 03:00 37.0 69 15 154/92 (112) 100 Mechanical Ventilator 21.00 12/31/19 02:00 37.0 62 17 156/72 (100) 100 Mechanical Ventilator 21.00 12/31/19 01:00 37.4 63 17 134/64 (87) 99 Mechanical Ventilator 21.00 12/31/19 01:00 63 12/31/19 00:19 37.55421 60 18 123/67 97 Mechanical Ventilator 12/31/19 00:00 97 Mechanical Ventilator 21 12/31/19 00:00 37.6 60 18 123/67 (85) 99 Mechanical Ventilator 21.00 12/30/19 23:00 37.6 67 18 128/67 (87) 100 Mechanical Ventilator 21.00 12/30/19 22:41 75 28 100 21 12/30/19 22:00 37.6 62 17 126/66 (86) 99 Mechanical Ventilator 21.00 12/30/19 21:00 37.6 64 17 129/61 (83) 99 Mechanical Ventilator 21.00 12/30/19 20:00 97 Mechanical Ventilator 21 12/30/19 20:00 37.8 65 17 111/59 (76) 98 Mechanical Ventilator 21.00 12/30/19 19:37 37.55338 68 18 152/72 98 Mechanical Ventilator 21.00 12/30/19 19:30 37.7 68 18 152/72 (98) 98 Mechanical Ventilator 21.00 12/30/19 19:00 37.7 73 17 110/84 (93) 100 Mechanical Ventilator 21.00 12/30/19 19:00 74 12/30/19 18:57 78 34 100 21 12/30/19 18:00 37.8 68 17 99/57 (71) 99 Mechanical Ventilator 21.00 12/30/19 17:00 37.6 71 31 116/63 (80) 100 Mechanical Ventilator 21.00 12/30/19 16:00 99 Mechanical Ventilator 21 12/30/19 16:00 37.6 66 18 106/56 (73) 98 Mechanical Ventilator 21.00 12/30/19 15:00 37.3 68 18 123/66 (85) 97 Mechanical Ventilator 21.00 12/30/19 14:51 138/63 12/30/19 14:00 37.3 60 18 128/59 (82) 98 Mechanical Ventilator 21.00 12/30/19 13:32 Mechanical Ventilator 21.00 12/30/19 13:26 63 18 100 30 12/30/19 13:00 37.2 65 17 119/63 (81) 100 Mechanical Ventilator 30.00 12/30/19 12:47 67 12/30/19 12:00 94 Mechanical Ventilator 60 12/30/19 12:00 36.7 59 18 120/65 (83) 99 Mechanical Ventilator 30.00 12/30/19 11:00 36.1 58 18 85/53 (64) 99 Mechanical Ventilator 30.00 12/30/19 10:00 36.0 61 17 97/55 (69) 99 Mechanical Ventilator 60.00 12/30/19 09:39 85/47 12/30/19 09:15 77/48 12/30/19 09:06 55 18 100 60 12/30/19 09:00 35.8 55 18 83/51 (62) 100 Mechanical Ventilator 60.00 12/30/19 08:00 94 Mechanical Ventilator 60 12/30/19 08:00 35.0 70 16 160/89 (112) 99 Mechanical Ventilator 60.00 12/30/19 07:58 71 19 100 60 12/30/19 07:00 57 12/30/19 07:00 34.5 56 8 91/49 (63) 98 Room Air 12/30/19 06:30 34.1 12/30/19 06:00 51 12 91/49 (63) 99 Room Air 12/30/19 05:57 35.0 I & O 12/31/19 07:00 Intake Total 4870 ml Output Total 2950 ml Balance 1920 ml Height & Weight Height: 5'1.00" Weight: 122lbs. 1.0oz. 55.892228xq; 26.00 BMI Method:Estimated General Appearance: No Apparent Distress, Thin Neck: Normal Inspection Respiratory: Lungs Clear, No Accessory Muscle Use (intubated) Cardiovascular: Regular Rate, Rhythm, No Murmur Capillary Refill: Less Than 3 Seconds Gastrointestinal: non tender, soft Extremity: Normal Capillary Refill, Normal Inspection Neurologic/Psychiatric: Alert, Oriented x3, No Motor/Sensory Deficits Skin: Normal Color, Warm/Dry Results Lab Laboratory Tests 12/30/19 03:15 12/30/19 04:00 12/30/19 06:36 12/30/19 15:26 12/31/19 03:00 Assessment/Plan Assessment/Plan Acute respiratory failure with decreased MS, unable to control airway, and periods of apnea. -MS -- improved -D/C all sedation and extubate once pt is awake and alert. Severe sepsis probably secondary to UTI -Check UA with C&S -CXR reviewed -Avendano culture -Start Vanco and Zosyn -Will give 2 liter bolus of LR which is more then the 30cc/kg of IVF -Check LA Hypothermia - resolved HTN -Restart anti HTN meds Hypoglycemia s/p D50 -- Resolved Hypotension --- Resolved bradycardia - resolved Metabolic encephalopathy - doubt CVA - CT of head -- reviewed -Neurontin level pending Severe hypokalemia -Replace and check mg and phos KIM FUNEZ DO Dec 31, 2019 05:39
[2019-12-31] MEDS: KCL 20 MEQ TAB (K-DUR) PO SCH (05:56)
[2019-12-31] MEDS: POTASSIUM CL 10MEQ/50ML IVPB 50 ML IV SCH ×3 (05:56→09:50)
[2019-12-31] MEDS: MAGNESIUM 1 GM/100 ML IVPB 100 ML IV SCH ×2 (05:56→09:50)
[2019-12-31] MEDS ORDERED: risperiDONE 1 MG (RisperDAL) TAB ONE (06:07)
[2019-12-31] MEDS: VANCOMYCIN 750 MG/NS 250 ML IVPB IV SCH ×4 (06:20→19:36)
[2019-12-31] MEDS: hydrALAZINE (APESOLINE) 20 MG/ML VIAL IV PRN ×2 (06:54→10:46)
[2019-12-31] MEDS: PROMETHAZINE INJ 25 MG/ML (PHENERGAN) AMP IVP PRN ×3 (06:54→20:14)
--- NOTE | 2019-12-31 07:32 | Diagnostic Imaging Report ---
INDICATION: Hypertensive urgency. COMPARISON: 12/30/2019. FINDINGS: Heart size is normal. Lungs are clear. Lines and tubes are in satisfactory positions. No pleural effusion or pneumothorax. Mediastinum is unremarkable. IMPRESSION: Stable appearance of the chest. Dictated by: Dictated on workstation # [id number]
[2019-12-31] MEDS: amLODIPine 5 MG (NORVASC) TAB PO SCH (07:58)
[2019-12-31] MEDS: ASPIRIN E.C. 81 MG (ECOTRIN) TAB PO SCH (07:58)
[2019-12-31] MEDS: PANTOPRAZOLE 20 MG TABLET (PROTONIX) PO SCH (07:58)
--- NOTE | 2019-12-31 08:43 | Progress Note ---
Subjective Subjective Date Seen by Provider: Dec 31, 2019 Time Seen by Provider: 10:05 59 year-old female doing better. Extubated this AM. WBC improved She is asking for IV benadryl to calm her restless legs caused from taking antinausea medication. Review of Systems General: No Chills, No Night Sweats HEENT: No Head Aches Pulmonary: No Dyspnea, No Cough Cardiovascular: No: Chest Pain Gastrointestinal: Nausea; No: Vomiting Genitourinary: No Dysuria, No Frequency Neurological: No: Weakness Objective Exam Vital Signs Vital Signs Date Time Temp Pulse Resp B/P (MAP) Pulse Ox O2 Delivery O2 Flow Rate FiO2 12/31/19 08:00 106 17 167/78 (107) 100 Nasal Cannula 2.00 12/31/19 07:00 89 12/31/19 07:00 87 39 167/78 (107) 98 Nasal Cannula 2.00 12/31/19 06:00 80 23 181/82 (115) 100 Nasal Cannula 2.00 12/31/19 05:45 Nasal Cannula 2.00 12/31/19 05:00 37.2 63 17 176/87 (116) 100 Mechanical Ventilator 21.00 12/31/19 04:10 37.79766 69 15 154/92 100 Mechanical Ventilator 12/31/19 04:00 97 Mechanical Ventilator 21 12/31/19 04:00 37.1 69 18 178/81 (113) 100 Mechanical Ventilator 21.00 12/31/19 03:00 75 34 100 21 12/31/19 03:00 37.0 69 15 154/92 (112) 100 Mechanical Ventilator 21.00 12/31/19 02:00 37.0 62 17 156/72 (100) 100 Mechanical Ventilator 21.00 12/31/19 01:00 37.4 63 17 134/64 (87) 99 Mechanical Ventilator 21.00 12/31/19 01:00 63 12/31/19 00:19 37.45046 60 18 123/67 97 Mechanical Ventilator 12/31/19 00:00 97 Mechanical Ventilator 21 12/31/19 00:00 37.6 60 18 123/67 (85) 99 Mechanical Ventilator 21.00 12/30/19 23:00 37.6 67 18 128/67 (87) 100 Mechanical Ventilator 21.00 12/30/19 22:41 75 28 100 21 12/30/19 22:00 37.6 62 17 126/66 (86) 99 Mechanical Ventilator 21.00 12/30/19 21:00 37.6 64 17 129/61 (83) 99 Mechanical Ventilator 21.00 12/30/19 20:00 97 Mechanical Ventilator 21 12/30/19 20:00 37.8 65 17 111/59 (76) 98 Mechanical Ventilator 21.00 12/30/19 19:37 37.50259 68 18 152/72 98 Mechanical Ventilator 21.00 12/30/19 19:30 37.7 68 18 152/72 (98) 98 Mechanical Ventilator 21.00 12/30/19 19:00 37.7 73 17 110/84 (93) 100 Mechanical Ventilator 21.00 12/30/19 19:00 74 12/30/19 18:57 78 34 100 21 12/30/19 18:00 37.8 68 17 99/57 (71) 99 Mechanical Ventilator 21.00 12/30/19 17:00 37.6 71 31 116/63 (80) 100 Mechanical Ventilator 21.00 12/30/19 16:00 99 Mechanical Ventilator 21 12/30/19 16:00 37.6 66 18 106/56 (73) 98 Mechanical Ventilator 21.00 12/30/19 15:00 37.3 68 18 123/66 (85) 97 Mechanical Ventilator 21.00 12/30/19 14:51 138/63 12/30/19 14:00 37.3 60 18 128/59 (82) 98 Mechanical Ventilator 21.00 12/30/19 13:32 Mechanical Ventilator 21.00 12/30/19 13:26 63 18 100 30 12/30/19 13:00 37.2 65 17 119/63 (81) 100 Mechanical Ventilator 30.00 12/30/19 12:47 67 12/30/19 12:00 94 Mechanical Ventilator 60 12/30/19 12:00 36.7 59 18 120/65 (83) 99 Mechanical Ventilator 30.00 12/30/19 11:00 36.1 58 18 85/53 (64) 99 Mechanical Ventilator 30.00 12/30/19 10:00 36.0 61 17 97/55 (69) 99 Mechanical Ventilator 60.00 12/30/19 09:39 85/47 12/30/19 09:15 77/48 12/30/19 09:06 55 18 100 60 12/30/19 09:00 35.8 55 18 83/51 (62) 100 Mechanical Ventilator 60.00 I & O 12/31/19 07:00 Intake Total 6190 ml Output Total 3700 ml Balance 2490 ml General Appearance: No Apparent Distress, Thin Eyes: Bilateral Eye Normal Inspection, Bilateral Eye PERRL Neck: Normal Inspection Respiratory: Lungs Clear, No Accessory Muscle Use Cardiovascular: Regular Rate, Rhythm, No Murmur Gastrointestinal: Non Tender, Soft Extremity: Normal Capillary Refill, Normal Inspection Neurologic/Psychiatric: Alert; No Oriented x3; No Motor/Sensory Deficits Skin: Normal Color, Warm/Dry Results Lab Laboratory Tests 12/30/19 09:03: Glucometer 175H 12/30/19 09:08: Blood Gas Puncture Site LT RAD, Blood Gas Patient Temperature 35.9, Arterial Blood pH 7.36L, Arterial Blood Partial Pressure CO2 36, Arterial Blood Partial Pressure O2 51L, Arterial Blood HCO3 20L, Arterial Blood Total CO2 21.6, Arterial Blood Oxygen Saturation 85L, Arterial Blood Base Excess -4.3L, Antonio Test YES-POS, Blood Gas Ventilator Setting YES, Blood Gas Inspired Oxygen 60% 12/30/19 10:49: Glucometer 259H 12/30/19 11:52: Glucometer 296H 12/30/19 12:48: Glucometer 278H 12/30/19 13:49: Glucometer 252H 12/30/19 15:02: Glucometer 170H 12/30/19 15:26: Potassium Level 3.9 12/30/19 15:54: Glucometer 141H 12/30/19 16:55: Glucometer 130H 12/30/19 18:04: Glucometer 134H 12/30/19 19:09: Glucometer 153H 12/30/19 20:59: Glucometer 165H 12/30/19 22:41: Glucometer 251H 12/31/19 00:04: Glucometer 232H 12/31/19 01:32: Glucometer 221H 12/31/19 03:00: White Blood Count 11.6H, Red Blood Count 3.32L, Hemoglobin 10.1L, Hematocrit 30L , Mean Corpuscular Volume 91, Mean Corpuscular Hemoglobin 30, Mean Corpuscular Hemoglobin Concent 34, Red Cell Distribution Width 13.2, Platelet Count 202, Mean Platelet Volume 10.3, Neutrophils (%) (Auto) 69, Lymphocytes (%) (Auto) 24, Monocytes (%) (Auto) 3, Eosinophils (%) (Auto) 4, Basophils (%) (Auto) 1, Neutrophils # (Auto) 8.0H, Lymphocytes # (Auto) 2.8, Monocytes # (Auto) 0.4, Eosinophils # (Auto) 0.4H, Basophils # (Auto) 0.1, Blood Gas Puncture Site RIGHT RADIAL, Blood Gas Patient Temperature 37.0, Arterial Blood pH 7.44H, Arterial Blood Partial Pressure CO2 25L, Arterial Blood Partial Pressure O2 76L, Arterial Blood HCO3 18L, Arterial Blood Total CO2 17.3L, Arterial Blood Oxygen Saturation 96, Arterial Blood Base Excess -6.8L, Antonio Test YES-POS, Blood Gas Ventilator Setting YES, Blood Gas Inspired Oxygen 21%, Sodium Level 144, Potassium Level 3.6, Chloride Level 120H, Carbon Dioxide Level 16L, Anion Gap 8, Blood Urea Nitr ogen 9, Creatinine 0.82, Estimat Glomerular Filtration Rate > 60, BUN/Creatinine Ratio 11, Glucose Level 240H, Calcium Level 7.9L, Phosphorus Level 3.0, Magnesium Level 1.5L 12/31/19 05:59: Glucometer 250H Microbiology 12/30/19 Influenza Types A,B Antigen (RACHELL) - Final, Complete 12/30/19 Urine Culture - Preliminary, Resulted Escherichia coli Assessment/Plan Assessment/Plan Assessment and Plan 12/30/19- intubated for decreased ability to protect airway. On dopamine for hypotension. Propofol for sedation- She is on vancomycin and zosyn for sepsis. Awaiting urine culture. -replacing K prn. Cr normal. Pharmacy is obtaining vanc troughs. Dr. Bright consulted for ICU care. 12/31/2019- extubated; plan to not give her IV benadryl as she is likely looking for a high from it. Will try 5mg haldol if she continues to have outbursts and agitation towards nurses/staff; awaiting cultures to tailor antibiotic coverage. Dispo: Will continue to monitor. Dr. Greenwood will be back 01/01/20 Problems: (1) Acute respiratory failure (2) Sepsis secondary to UTI Assessment & Plan: improved (3) Hypokalemia Assessment & Plan: replacing as needed (4) IDDM (insulin dependent diabetes mellitus) (5) Hypomagnesemia Assessment & Plan: replacing as needed Clinical Quality Measures DVT/VTE Risk/Contraindication: Risk Factor Score Per Nursin RFS Level Per Nursing on Admit: 2=Moderate SONIA BARRETT MD Dec 31, 2019 08:43
[2019-12-31] MEDS ORDERED: HALOPERIDOL 5 MG/ML (HALDOL) AMP IV PRN (10:00)
[2019-12-31] MEDS ORDERED: HALOPERIDOL 5 MG/ML (HALDOL) AMP IM PRN (11:15)
--- NOTE | 2019-12-31 12:12 | Progress Note - Cardiology ---
Cardiology SOAP Progress Note Subjective: She does not report cp or palp or syncope or shortness of breath Does not generally feel well, but is not able to specify (somnolent) Objective: I&O/Vital Signs 12/31/19 12/31/19 12/31/19 12/31/19 00:19 01:00 01:00 02:00 Temp 37.04721 37.4 37.0 Pulse 60 63 63 62 Resp 18 17 17 B/P (MAP) 123/67 134/64 (87) 156/72 (100) Pulse Ox 97 99 100 O2 Delivery Mechanical Ventilator Mechanical Ventilator Mechanical Ventilator O2 Flow Rate 21.00 21.00 12/31/19 12/31/19 12/31/19 12/31/19 03:00 03:00 04:00 04:00 Temp 37.0 37.1 Pulse 69 75 69 Resp 15 34 18 B/P (MAP) 154/92 (112) 178/81 (113) Pulse Ox 100 100 100 97 O2 Delivery Mechanical Ventilator Mechanical Ventilator Mechanical Ventilator O2 Flow Rate 21.00 21.00 FiO2 21 21 12/31/19 12/31/19 12/31/19 12/31/19 04:10 05:00 05:45 06:00 Temp 37.16892 37.2 Pulse 69 63 80 Resp 15 17 23 B/P (MAP) 154/92 176/87 (116) 181/82 (115) Pulse Ox 100 100 100 O2 Delivery Mechanical Ventilator Mechanical Ventilator Nasal Cannula Nasal Cannula O2 Flow Rate 21.00 2.00 2.00 12/31/19 12/31/19 12/31/19 12/31/19 07:00 07:00 08:00 08:00 Temp 37.1 Pulse 87 89 106 Resp 39 17 B/P (MAP) 167/78 (107) 167/78 (107) Pulse Ox 98 100 O2 Delivery Nasal Cannula Nasal Cannula O2 Flow Rate 2.00 2.00 12/31/19 12/31/19 12/31/19 12/31/19 08:00 09:00 10:00 11:00 Pulse 90 88 100 Resp 25 13 16 B/P (MAP) 158/83 (108) 153/75 (101) 138/77 (97) Pulse Ox 100 100 98 O2 Delivery Room Air Nasal Cannula Nasal Cannula Nasal Cannula O2 Flow Rate 2.00 2.00 2.00 12/31/19 12:00 O2 Delivery Room Air 12/31/19 00:00 Intake Total 2500 ml Output Total 2400 ml Balance 100 ml Weight (Pounds): 122 Weight (Ounces): 1.0 Weight (Calculated Kilograms): 55.325747 Constitutional: other (somnolent, answers questions only briefly, does appear to know where she is) Respiratory: No accessory muscle use, No respiratory distress; chest expansion is symmetric, chest is bilaterally symmetric, other (fair to good bilat air entry) Cardiovascular: No JVD; tachycardia, S1 and S2, systolic murmur (faint PAT at card base) Gastrointestional: soft; No guarding; audible bowel sounds Extremities: No clubbing, No cyanosis; no lower extremity edema bilateral Neurologic/Psychiatric: other (seems to able to move all her limbs equally) Skin: No rash on exposed areas, No ulcerations on exposed areas Results/Procedures: Labs Laboratory Tests 12/30/19 12:48: Glucometer 278H 12/30/19 13:49: Glucometer 252H 12/30/19 15:02: Glucometer 170H 12/30/19 15:26: Potassium Level 3.9 12/30/19 15:54: Glucometer 141H 12/30/19 16:55: Glucometer 130H 12/30/19 18:04: Glucometer 134H 12/30/19 19:09: Glucometer 153H 12/30/19 20:59: Glucometer 165H 12/30/19 22:41: Glucometer 251H 12/31/19 00:04: Glucometer 232H 12/31/19 01:32: Glucometer 221H 12/31/19 03:00: White Blood Count 11.6H, Red Blood Count 3.32L, Hemoglobin 10.1L, Hematocrit 30L , Mean Corpuscular Volume 91, Mean Corpuscular Hemoglobin 30, Mean Corpuscular Hemoglobin Concent 34, Red Cell Distribution Width 13.2, Platelet Count 202, Mean Platelet Volume 10.3, Neutrophils (%) (Auto) 69, Lymphocytes (%) (Auto) 24, Monocytes (%) (Auto) 3, Eosinophils (%) (Auto) 4, Basophils (%) (Auto) 1, Ne utrophils # (Auto) 8.0H, Lymphocytes # (Auto) 2.8, Monocytes # (Auto) 0.4, Eosi nophils # (Auto) 0.4H, Basophils # (Auto) 0.1, Blood Gas Puncture Site RIGHT RADIAL, Blood Gas Patient Temperature 37.0, Arterial Blood pH 7.44H, Arterial Blood Partial Pressure CO2 25L, Arterial Blood Partial Pressure O2 76L, Arterial Blood HCO3 18L, Arterial Blood Total CO2 17.3L, Arterial Blood Oxygen Saturation 96, Arterial Blood Base Excess -6.8L, Antonio Test YES-POS, Blood Gas Ventilator Setting YES, Blood Gas Inspired Oxygen 21%, Sodium Level 144, Potassium Level 3.6, Chloride Level 120H, Carbon Dioxide Level 16L, Anion Gap 8, Blood Urea Nitrogen 9, Creatinine 0.82, Estimat Glomerular Filtration Rate > 60, BU N/Creatinine Ratio 11, Glucose Level 240H, Calcium Level 7.9L, Phosphorus Level 3.0, Magnesium Level 1.5L 12/31/19 05:59: Glucometer 250H Microbiology 12/30/19 Influenza Types A,B Antigen (RACHELL) - Final, Complete 12/30/19 Urine Culture - Preliminary, Resulted Escherichia coli Laboratory Tests 12/30/19 03:15 12/30/19 04:00 12/30/19 06:36 12/30/19 15:26 12/31/19 03:00 A/P: Assessment: Probable septic shock from UTI, improved Currently has hypertension H/o syncope, mostly postural. S/P ILR implant on 11-10-2019. 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 Underwent stenting of mid LAD Resolute Integrity 2.5x[address] Cohen on 07/13/15; Last cath on 01/20/19: patent mid LAD stent with 50% post-stent (FFR 0.86), 50% distal LCX OM and D1 and prox and distal RCA. LVEF 65%, LVEDP 15 mmHg (essentially unchanged compared to previous caths). MPI of 04-04-19 showed no evidence of any signif ischemia or infarction. 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 Court Saha of Nephrology services Plan: * Add bb for bp control * Keep in ICU to monitor closely * Replenish lytes * Monitor labs RICH FELIX MD FACP FAC CCDS Dec 31, 2019 12:12
[2019-12-31] MEDS ORDERED: meTOproloL SUCCINATE 50 MG (TOPROL XL) TAB PO NR (12:15)
[2019-12-31] MEDS: ENOXAPARIN 40 MG/0.4 ML (LOVENOX) SYR SC SCH (19:55)
[2019-12-31] MEDS: HALOPERIDOL 5 MG/ML (HALDOL) AMP IV PRN (20:14)
[2019-12-31] MEDS: inSUlin REGULAR TPN/DRIP 250 UNITS/NS 250 ML IV SCH ×2 (21:20)
[2019-12-31] MEDS: ACETAMINOPHEN 500 MG TAB (TYLENOL) PO PRN (22:46)
[2020-01-01] VITALS (11 sets, daily range): BP systolic 142–165; BP diastolic 66–90
[2020-01-01 03:21] LABS: BASOPHILS # (AUTO) 0.1 10^3/uL (0.0-0.1); BASOPHILS % (AUTO) 1 % (0-10); EOSINOPHILS # (AUTO) 0.6 10^3/uL (0.0-0.3); EOSINOPHILS % (AUTO) 7 % (0-10); HEMATOCRIT 29 % (35-52); HEMOGLOBIN 9.5 G/DL (11.5-16.0); LYMPHOCYTES % (AUTO) 35 % (12-44); MEAN CORPUSCULAR HEMOGLOBIN 30 PG (25-34); MEAN CORPUSCULAR HGB CONC 33 G/DL (32-36); MEAN CORPUSCULAR VOLUME 90 FL (80-99); MEAN PLATELET VOLUME 9.8 FL (7.4-10.4); MONOCYTES # (AUTO) 0.5 X 10^3 (0.0-1.0); MONOCYTES % (AUTO) 5 % (0-12); NEUTROPHILS # (AUTO) 4.5 X 10^3 (1.8-7.8); NEUTROPHILS % (AUTO) 52 % (42-75); PLATELET COUNT 202 10^3/uL (130-400); RED CELL DISTRIBUTION WIDTH 13.2 % (10.0-14.5); WHITE BLOOD COUNT 8.7 10^3/uL (4.3-11.0)
[2020-01-01 03:39] LABS: BUN/CREATININE RATIO 6; CALCIUM 8.2 MG/DL (8.5-10.1); CARBON DIOXIDE 20 MMOL/L (21-32); CHLORIDE 114 MMOL/L (98-107); CREATININE SERUM 0.78 MG/DL (0.60-1.30); GFR ESTIMATED > 60; GLUCOSE 123 MG/DL (70-105); MAGNESIUM 1.6 MG/DL (1.6-2.4); PHOSPHORUS 3.4 MG/DL (2.3-4.7); SODIUM 143 MMOL/L (135-145); TRIGLYCERIDES 110 MG/DL (<150)
[2020-01-01] MEDS: KCL 20 MEQ TAB (K-DUR) PO SCH (03:43)
[2020-01-01] MEDS: MAGNESIUM 1 GM/100 ML IVPB 100 ML IV SCH ×3 (03:43→04:15)
[2020-01-01] MEDS: POTASSIUM CL 10MEQ/50ML IVPB 50 ML IV SCH ×5 (03:43→06:04)
--- NOTE | 2020-01-01 04:27 | Pulmonary Progress Note ---
Subjective Time Seen by a Provider: 04:27 Subjective/Events-last exam No complications noted. Sepsis Event Evaluation Height, Weight, BMI Height: 5'1.00" Weight: 122lbs. 1.0oz. 55.898611zz; 26.00 BMI Method:Estimated Focused Exam Lactate Level 12/30/19 06:36: Lactic Acid Level 0.92 Exam Exam Vital Signs Date Time Temp Pulse Resp B/P (MAP) Pulse Ox O2 Delivery O2 Flow Rate FiO2 01/01/20 04:00 71 13 142/69 (93) 98 Room Air 01/01/20 03:09 Room Air 01/01/20 03:09 37.0 01/01/20 03:00 75 16 156/66 (96) 97 Room Air 01/01/20 02:00 69 15 143/68 (93) 97 Room Air 01/01/20 01:01 88 148/67 (94) Room Air 01/01/20 01:00 80 01/01/20 00:00 80 15 152/71 (98) 98 Room Air 12/31/19 23:39 36.6 12/31/19 23:15 Room Air 12/31/19 23:00 80 22 135/69 (91) 97 Room Air 12/31/19 22:00 80 14 158/73 (101) 97 Room Air 12/31/19 21:13 Nasal Cannula 2.00 12/31/19 21:00 82 18 152/72 (98) 98 Room Air 12/31/19 20:00 37.2 12/31/19 20:00 89 24 148/75 (99) 99 Room Air 12/31/19 20:00 Room Air 12/31/19 19:53 81 17 155/75 (101) 97 Room Air 12/31/19 19:00 87 12/31/19 19:00 87 21 98 Room Air 12/31/19 18:00 87 12 136/77 (96) 95 Nasal Cannula 2.00 12/31/19 17:00 87 15 134/66 (88) 99 Nasal Cannula 2.00 12/31/19 16:00 98 19 124/88 (100) 98 Nasal Cannula 2.00 12/31/19 16:00 37.8 12/31/19 15:33 Room Air 12/31/19 15:00 96 29 Nasal Cannula 2.00 12/31/19 14:00 93 14 133/68 (89) 98 Nasal Cannula 2.00 12/31/19 13:00 108 27 128/60 (82) 98 Nasal Cannula 2.00 12/31/19 12:28 101 12/31/19 12:00 37.6 12/31/19 12:00 Room Air 12/31/19 12:00 101 17 117/71 (86) 97 Nasal Cannula 2.00 12/31/19 11:00 100 16 138/77 (97) 98 Nasal Cannula 2.00 12/31/19 10:00 88 13 153/75 (101) 100 Nasal Cannula 2.00 12/31/19 09:00 90 25 158/83 (108) 100 Nasal Cannula 2.00 12/31/19 08:00 Room Air 12/31/19 08:00 106 17 167/78 (107) 100 Nasal Cannula 2.00 12/31/19 08:00 37.1 12/31/19 07:00 89 12/31/19 07:00 37.1 12/31/19 07:00 87 39 167/78 (107) 98 Nasal Cannula 2.00 12/31/19 06:00 80 23 181/82 (115) 100 Nasal Cannula 2.00 12/31/19 05:45 Nasal Cannula 2.00 12/31/19 05:00 37.2 63 17 176/87 (116) 100 Mechanical Ventilator 21.00 I & O 01/01/20 07:00 Intake Total 2155.0 ml Output Total 2600 ml Balance -445.0 ml Height & Weight Height: 5'1.00" Weight: 122lbs. 1.0oz. 55.927802dc; 26.00 BMI Method:Estimated General Appearance: No Apparent Distress, Thin Neck: Normal Inspection Respiratory: Lungs Clear, No Accessory Muscle Use Cardiovascular: Regular Rate, Rhythm, No Murmur Capillary Refill: Less Than 3 Seconds Gastrointestinal: non tender, soft Extremity: Normal Capillary Refill, Normal Inspection Neurologic/Psychiatric: Alert; No Oriented x3; No Motor/Sensory Deficits Skin: Normal Color, Warm/Dry Results Lab Laboratory Tests 12/30/19 06:36 12/30/19 15:26 12/31/19 03:00 01/01/20 03:13 Assessment/Plan Assessment/Plan Severe sepsis probably secondary to UTI -- improving -Check UA with C&S -CXR reviewed -Avendano culture -Start Vanco and Zosyn -Will give 2 liter bolus of LR which is more then the 30cc/kg of IVF -Check LA Hx of psychosis -- -Drug seeking behavior Hypothermia - resolved HTN -Restart anti HTN meds Hypoglycemia s/p D50 -- Resolved Hypotension --- Resolved bradycardia - resolved Metabolic encephalopathy - doubt CVA - CT of head -- reviewed -Neurontin level pending Severe hypokalemia -Replace and check mg and phos I am going to transfer pt to 4th floor and sign off. Please call with any questions or concerns. KIM FUNEZ DO Jan 01, 2020 04:27
[2020-01-01] MEDS: PROMETHAZINE INJ 25 MG/ML (PHENERGAN) AMP IVP PRN ×3 (06:00→18:39)
[2020-01-01] MEDS: HALOPERIDOL 5 MG/ML (HALDOL) AMP IV PRN ×2 (06:00→23:06)
[2020-01-01] MEDS ORDERED: TROUGH ORDER-PHARMACY XX NR (06:00)
[2020-01-01] MEDS: inSUlin ASPART (NovoLOG) 1 UNIT/0.01 ML (CHARGE PER UNIT) SC SCH ×3 (06:56→18:15)
--- NOTE | 2020-01-01 08:27 | NUR ---
THIS NURSE NOTIFIED DR FUNEZ PT REFUSED CAROTID US. WILL CONTINUE TO MONITOR.
[2020-01-01] MEDS: ASPIRIN E.C. 81 MG (ECOTRIN) TAB PO SCH (08:39)
[2020-01-01] MEDS: amLODIPine 5 MG (NORVASC) TAB PO SCH (08:40)
[2020-01-01] MEDS: PANTOPRAZOLE 20 MG TABLET (PROTONIX) PO SCH (08:40)
[2020-01-01] MEDS: VANCOMYCIN 750 MG/NS 250 ML IVPB IV SCH ×4 (08:40→18:40)
[2020-01-01] MEDS: meTOproloL SUCCINATE 50 MG (TOPROL XL) TAB PO SCH (08:40)
[2020-01-01] MEDS: PIPERACILLIN/TAZOBACTAM (BULK) 4.5 GM in NS (IVPB) 100 ML IV SCH ×3 (08:41→23:06)
--- NOTE | 2020-01-01 08:42 | Progress Note ---
Subjective Time Seen by a Provider: 08:40 Subjective/Events-last exam Ration is doing better today. Patient be transferred to medical floor. Patient complains of itching and put on Claritin Focused Exam Lactate Level 12/30/19 06:36: Lactic Acid Level 0.92 Objective Exam Vital Signs Date Time Temp Pulse Resp B/P (MAP) Pulse Ox O2 Delivery O2 Flow Rate FiO2 01/01/20 06:00 84 165/75 (105) 99 Room Air 01/01/20 05:00 77 25 150/72 (98) 98 Room Air 01/01/20 04:00 71 13 142/69 (93) 98 Room Air 01/01/20 03:09 Room Air 01/01/20 03:09 37.0 01/01/20 03:00 75 16 156/66 (96) 97 Room Air 01/01/20 02:00 69 15 143/68 (93) 97 Room Air 01/01/20 01:01 88 148/67 (94) Room Air 01/01/20 01:00 80 01/01/20 00:00 80 15 152/71 (98) 98 Room Air 12/31/19 23:39 36.6 12/31/19 23:15 Room Air 12/31/19 23:00 80 22 135/69 (91) 97 Room Air 12/31/19 22:00 80 14 158/73 (101) 97 Room Air 12/31/19 21:13 Nasal Cannula 2.00 12/31/19 21:00 82 18 152/72 (98) 98 Room Air 12/31/19 20:00 37.2 12/31/19 20:00 89 24 148/75 (99) 99 Room Air 12/31/19 20:00 Room Air 12/31/19 19:53 81 17 155/75 (101) 97 Room Air 12/31/19 19:00 87 12/31/19 19:00 87 21 98 Room Air 12/31/19 18:00 87 12 136/77 (96) 95 Nasal Cannula 2.00 12/31/19 17:00 87 15 134/66 (88) 99 Nasal Cannula 2.00 12/31/19 16:00 98 19 124/88 (100) 98 Nasal Cannula 2.00 12/31/19 16:00 37.8 12/31/19 15:33 Room Air 12/31/19 15:00 96 29 Nasal Cannula 2.00 12/31/19 14:00 93 14 133/68 (89) 98 Nasal Cannula 2.00 12/31/19 13:00 108 27 128/60 (82) 98 Nasal Cannula 2.00 12/31/19 12:28 101 12/31/19 12:00 37.6 12/31/19 12:00 Room Air 12/31/19 12:00 101 17 117/71 (86) 97 Nasal Cannula 2.00 12/31/19 11:00 100 16 138/77 (97) 98 Nasal Cannula 2.00 12/31/19 10:00 88 13 153/75 (101) 100 Nasal Cannula 2.00 12/31/19 09:00 90 25 158/83 (108) 100 Nasal Cannula 2.00 I & O 01/01/20 07:00 Intake Total 2355.0 ml Output Total 2950 ml Balance -595.0 ml Capillary Refill : Less Than 3 Seconds General Appearance: No Apparent Distress, WD/WN HEENT: Normal ENT Inspection Neck: Full Range of Motion, Normal Inspection Respiratory: Lungs Clear, No Accessory Muscle Use, No Respiratory Distress Cardiovascular: Regular Rate, Rhythm, No Murmur Gastrointestinal: non tender, soft Results Lab Laboratory Tests 01/01/20 03:13 Laboratory Tests 12/31/19 13:01: Glucometer 290H 12/31/19 15:46: Glucometer 207H 12/31/19 16:33: Glucometer 139H 12/31/19 17:35: Glucometer 243H 12/31/19 20:19: Glucometer 306H 12/31/19 23:31: Glucometer 253H 01/01/20 03:13: White Blood Count 8.7, Red Blood Count 3.18L, Hemoglobin 9.5L, Hematocrit 29L, Mean Corpuscular Volume 90, Mean Corpuscular Hemoglobin 30, Mean Corpuscular Hemoglobin Concent 33, Red Cell Distribution Width 13.2, Platelet Count 202, Mean Platelet Volume 9.8, Neutrophils (%) (Auto) 52, Lymphocytes (%) (Auto) 35, Monocytes (%) (Auto) 5, Eosinophils (%) (Auto) 7, Basophils (%) (Auto) 1, Neutrophils # (Auto) 4.5, Lymphocytes # (Auto) 3.0, Monocytes # (Auto) 0.5, Eosinophils # (Auto) 0.6H, Basophils # (Auto) 0.1, Sodium Level 143, Potassium Level 3.0L, Chloride Level 114H, Carbon Dioxide Level 20L, Anion Gap 9, Blood Urea Nitrogen 5L, Creatinine 0.78, Estimat Glomerular Filtration Rate > 60, BUN/Creatinine Ratio 6, Glucose Level 123H, Calcium Level 8.2L, Phosphorus Level 3.4, Magnesium Level 1.6, Triglycerides Level 110 01/01/20 06:06: Vancomycin Level Trough 16.9 Microbiology 12/30/19 Influenza Types A,B Antigen (RACHELL) - Final, Complete 12/30/19 Blood Culture - Preliminary, Resulted No growth 12/30/19 Urine Culture - Preliminary, Resulted Escherichia coli Assessment/Plan Assessment/Plan Assess & Plan/Chief Complaint Diabetes. Strokelike symptoms resolved. Nauseousness. CAD. . 01/01/2020. Diabetes. Coronary artery disease. Hypertension. Hypoglycemia. Bradycardia. Patient doing better today and to be transferred to medical floor Clinical Quality Measures Admission Status Admission Dx Hypertensive urgency. Diabetes. Coronary artery disease. Patient has a cardiac device implanted and unable to do MRI. Confusion. Conversion reaction or DVT/VTE Risk/Contraindication: Risk Factor Score Per Nursin RFS Level Per Nursing on Admit: 2=Moderate CINDY CALABRESE DO Jan 01, 2020 08:42
[2020-01-01] MEDS: ACETAMINOPHEN 500 MG TAB (TYLENOL) PO PRN ×2 (08:53→15:42)
--- NOTE | 2020-01-01 09:30 | Diagnostic Imaging Report ---
EXAMINATION: Chest radiograph, portable AP view. DATE: 01/01/2020 5:03 AM. INDICATION: 59-year-old female, stroke-like symptoms. COMPARISON: December 31, 2019. FINDINGS: There is cervical spine hardware. There is a right-sided internal jugular central venous line with the tip at the level of the cavoatrial junction. Stable overall appearance of the cardiomediastinal silhouette. There is no identified pneumothorax. There is no large pleural effusion. There is no identified focal airspace consolidation. Additionally noted previously present support lines and tubes have been removed. IMPRESSION: No identified acute cardiopulmonary abnormality. Dictated by: Dictated on workstation # [id number]
--- NOTE | 2020-01-01 09:32 | Progress Note - Cardiology ---
Cardiology SOAP Progress Note Subjective: Does not report cp or palp or syncope No shortness of breath at rest Denies n/v/d Reports gen malaise and weakness Objective: I&O/Vital Signs 12/31/19 12/31/19 12/31/19 12/31/19 22:00 23:00 23:15 23:39 Temp 36.6 Pulse 80 80 Resp 14 22 B/P (MAP) 158/73 (101) 135/69 (91) Pulse Ox 97 97 O2 Delivery Room Air Room Air Room Air 01/01/20 01/01/20 01/01/20 01/01/20 00:00 01:00 01:01 02:00 Pulse 80 80 88 69 Resp 15 15 B/P (MAP) 152/71 (98) 148/67 (94) 143/68 (93) Pulse Ox 98 97 O2 Delivery Room Air Room Air Room Air 01/01/20 01/01/20 01/01/20 01/01/20 03:00 03:09 03:09 04:00 Temp 37.0 Pulse 75 71 Resp 16 13 B/P (MAP) 156/66 (96) 142/69 (93) Pulse Ox 97 98 O2 Delivery Room Air Room Air Room Air 01/01/20 01/01/20 01/01/20 05:00 06:00 07:26 Temp 36.8 Pulse 77 84 86 Resp 25 13 B/P (MAP) 150/72 (98) 165/75 (105) 156/90 (112) Pulse Ox 98 99 99 O2 Delivery Room Air Room Air 01/01/20 00:00 Intake Total 1177.5 ml Output Total 650 ml Balance 527.5 ml Weight (Pounds): 122 Weight (Ounces): 1.0 Weight (Calculated Kilograms): [id number] Constitutional: AAO x 3, well-developed, well-nourished Respiratory: No accessory muscle use, No respiratory distress; chest expansion is symmetric, chest is bilaterally symmetric, other (fair to good bilat air entry) Cardiovascular: No JVD; S1 and S2, systolic murmur (faint PAT at card base) Gastrointestional: soft; No guarding, No rebound; audible bowel sounds Extremities: No clubbing, No cyanosis; no lower extremity edema bilateral Neurologic/Psychiatric: oriented x 3, other (seems to able to move all her limbs equally) Skin: No rash on exposed areas, No ulcerations on exposed areas Results/Procedures: Labs Laboratory Tests 12/31/19 13:01: Glucometer 290H 12/31/19 15:46: Glucometer 207H 12/31/19 16:33: Glucometer 139H 12/31/19 17:35: Glucometer 243H 12/31/19 20:19: Glucometer 306H 12/31/19 23:31: Glucometer 253H 01/01/20 03:13: White Blood Count 8.7, Red Blood Count 3.18L, Hemoglobin 9.5L, Hematocrit 29L, Mean Corpuscular Volume 90, Mean Corpuscular Hemoglobin 30, Mean Corpuscular Hemoglobin Concent 33, Red Cell Distribution Width 13.2, Platelet Count 202, Mean Platelet Volume 9.8, Neutrophils (%) (Auto) 52, Lymphocytes (%) (Auto) 35, Monocytes (%) (Auto) 5, Eosinophils (%) (Auto) 7, Basophils (%) (Auto) 1, Neutrophils # (Auto) 4.5, Lymphocytes # (Auto) 3.0, Monocytes # (Auto) 0.5, Eosinophils # (Auto) 0.6H, Basophils # (Auto) 0.1, Sodium Level 143, Potassium Level 3.0L, Chloride Level 114H, Carbon Dioxide Level 20L, Anion Gap 9, Blood Urea Nitrogen 5L, Creatinine 0.78, Estimat Glomerular Filtration Rate > 60, BUN/Creatinine Ratio 6, Glucose Level 123H, Calcium Level 8.2L, Phosphorus Level 3.4, Magnesium Level 1.6, Triglycerides Level 110 01/01/20 06:06: Vancomycin Level Trough 16.9 Microbiology 12/30/19 Influenza Types A,B Antigen (RACHELL) - Final, Complete 12/30/19 Blood Culture - Preliminary, Resulted No growth 12/30/19 Urine Culture - Preliminary, Resulted Escherichia coli Laboratory Tests 12/30/19 15:26 12/31/19 03:00 01/01/20 03:13 A/P: Assessment: Probable septic shock from UTI, improved Hypertension Hypokalemia H/o syncope, mostly postural. S/P ILR implant on 11-10-2019. 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 Underwent stenting of mid LAD Resolute Integrity 2.5x[address] Cohen on 07/13/15; Last cath on 01/20/19: patent mid LAD stent with 50% post-stent (FFR 0.86), 50% distal LCX OM and D1 and prox and distal RCA. LVEF 65%, LVEDP 15 mmHg (essentially unchanged compared to previous caths). MPI of 04-04-19 showed no evidence of any signif ischemia or infarction. 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 Court Saha of Nephrology services Plan: * BP better after increase in oral bb and addition of amlodipine * Replenish lytes * Monitor labs RICH FELIX MD FACP FAC CCDS Jan 01, 2020 09:32
[2020-01-01] MEDS: LORATADINE (CLARITIN) 10 MG TAB PO SCH (09:40)
--- NOTE | 2020-01-01 10:04 | Physical Therapy Evaluation ---
PT Evaluation-General Medical Diagnosis Admission Date Dec 27, 2019 at 21:25 Medical Diagnosis: stroke like symptoms Onset Date: Dec 27, 2019 Therapy Diagnosis Therapy Diagnosis: debility Height/Weight Height (Feet): 5 Height (Inches): 1.00 Weight (Pounds): 122 Weight (Ounces): 1.0 Precautions Precautions/Isolations: Fall Prevention, Standard Precautions Referral Physician: Kaila Reason for Referral: Evaluation/Treatment Medical History Pertinent Medical History: Alcoholism, CAD, DM, HTN, Neuropathy, Smoking Current History EMS secondary to PERKINS and garbled speech Reviewed History: Yes Social History Home: Apartment Current Living Status: Alone Entry Into Home: Elevator, Level Entry Prior Prior Level of Function SCALE: Activities may be completed with or without assistive devices. 9-Cuetlethev-qydzmxa completes the activity by him/herself with no assistance from a helper. 5-Set-up or Clean-up Assistance-helper sets up or cleans up; patient completes activity. Center assists only prior to or following the activity. 4-Supervision or Touching Assistance-helper provides verbal cues and/or touching/steadying and/or contact guard assistance as patient completes activity. Assistance may be provided throughout the activity or intermittently. 3-Partial/Moderate Assistance-helper does LESS THAN HALF the effort. Center lifts, holds or supports trunk or limbs, but provides less than half the effort. 2-Substantial/Maximal Assistance-helper does MORE THAN HALF the effort. Center lifts or holds trunk or limbs and provides more than half the effort. 6-Koggobveb-hhdwmy does ALL the effort. Patient does none of the effort to complete the activity. Or, the assistance of 2 or more helpers is required for the patient to complete the activity. If activity was not attempted, code reason: 7-Patient Refused. 9-Not Applicable-not attempted and the patient did not perform the activity before the current illness, exacerbation or injury. 10-Not Attempted due to Environmental Limitations-(lack of equipment, weather restraints, etc.). 88-Not Attempted due to Medical Conditions or Safety Concerns. Bed Mobility: 6 Transfers (B,C,W/C): 6 Gait: 6 Indoor Mobility (Ambulation): Independent Stairs: Independent Prior Devices Use: None cane PT Evaluation-Current Subjective Patient agrees to PT. No c/o. Pain Numeric Pain Scale: 0-No Pain Objective Patient Orientation: Person, Time, Situation ROM/Strength ROM Lower Extremities bilateral LE WFL Strength Lower Extremities 4/5 grossly bilateral LE Integumentary/Posture Integumentary refer to nursing notes Bowel Incontinence: No Bladder Incontinence: No Posture WFL Neuromuscular (Tone, Coordination, Reflexes) grossly intact Sensory Vision: Functional Sensation Right Lower Extremit: Impaired Sensation Left Lower Extremity: Impaired Transfers Roll Left to Right (QC): 6 Sit to Lying (QC): 6 Lying to Sitting/Side of Bed(Q: 6 Sit to Stand (QC): 6 Chair/Lye-ql-Jlouo Xfer(QC): 6 Gait Does the Patient Walk?: Yes Mode of Locomotion: Walk Anticipated Mode of Locomotion: Walk Walk 10 feet (QC): 6 Walk 50 ft with 2 Turns(QC): 6 Walk 150 ft (QC): 6 Distance: 200' Gait Assistive Device: None Comments/Gait Description safe and functional Balance Sitting Static: Normal Sitting Dynamic: Normal Standing Static: Normal Standing Dynamic: Normal Assessment/Needs 59 y.o. female, is currently at [facility] with all gross motor skills and does not require skilled therapy intervention. Rehab Potential: Fair Post Rehab Potential-Barriers: compliance PT Plan Treatment/Plan Treatment Plan: Discontinue PT, goals met Treatment Plan: Other Treatment Duration: Jan 01, 2020 Frequency: 1 time per week Estimated Hrs Per Day: .25 hour per day Patient and/or Family Agrees t: Yes Time/GCodes Time In: 835 Time Out: 847 Total Billed Treatment Time: 12 Total Billed Treatment 1 visit EVMod 12 min KELVIN CALVO PT Jan 01, 2020 10:04
[2020-01-01] MEDS: hydrALAZINE (APESOLINE) 20 MG/ML VIAL IV PRN (10:24)
--- NOTE | 2020-01-01 12:44 | NUR ---
THIS NURSE NOTIFIED DR CALABRESE PT BLOOD SUGAR WAS 436. DR CALABRESE ORDERED 14 UNITS OF HUMALOG SUBCUTANEOUS X1. WILL CONTINUE TO MONITOR.
[2020-01-01] MEDS ORDERED: inSUlin ASPART (NovoLOG) 1 UNIT/0.01 ML (CHARGE PER UNIT) SC NR (12:45)
--- NOTE | 2020-01-01 13:26 | Occupational Therapy Eval ---
OT Evaluation-General/PLF Medical Diagnosis Admission Date Dec 27, 2019 at 21:25 Medical Diagnosis: stroke like symptoms Onset Date: Dec 27, 2019 Therapy Diagnosis Therapy Diagnosis: Weakness Height/Weight Height (Feet): 5 Height (Inches): 1.00 Weight (Pounds): 122 Weight (Ounces): 1.0 Precautions Precautions/Isolations: Fall Prevention, Standard Precautions Safety Interventions: Bed Exit Alarm, Reorient-PRN Weight Bear Status Weight Bearing Restriction: Weight Bearing/Tolerated Referral Physician: Kaila Referral Reason: Activity Tolerance, Self Care, Evaluation/Treatment, Strengthening/ROM Medical History Pertinent Medical History: Alcoholism, CAD, DM, HTN, Neuropathy, Smoking Additional Medical History DVT, Pacemaker, coronary stent Current History Pt. sustained stroke like symptoms. Came to ER. Symptoms have resolved. Reviewed History: Yes Social History Home: Apartment Current Living Status: Other Family Entry Into Home: Elevator, Level Entry ADL-Prior Level of Function SCALE: Activities may be completed with or without assistive devices. 0-Girmqviebm-ebhrnul completes the activity by him/herself with no assistance from a helper. 5-Set-up or Clean-up Assistance-helper sets up or cleans up; patient completes activity. [place] assists only prior to or following the activity. 4-Supervision or Touching Assistance-helper provides verbal cues and/or touching/steadying and/or contact guard assistance as patient completes activity. Assistance may be provided throughout the activity or intermittently. 3-Partial/Moderate Assistance-helper does LESS THAN HALF the effort. [place] lifts, holds or supports trunk or limbs, but provides less than half the effort. 2-Substantial/Maximal Assistance-helper does MORE THAN HALF the effort. [place] lifts or holds trunk or limbs and provides more than half the effort. 9-Zxltsthtv-yebxui does ALL the effort. Patient does none of the effort to complete the activity. Or, the assistance of 2 or more helpers is required for the patient to complete the activity. If activity was not attempted, code reason: 7-Patient Refused. 9-Not Applicable-not attempted and the patient did not perform the activity before the current illness, exacerbation or injury. 10-Not Attempted due to Environmental Limitations-(lack of equipment, weather restraints, etc.). 88-Not Attempted due to Medical Conditions or Safety Concerns. ADL PLOF Comments Pt. states that she is independent with daily skills at home. Self Care: Independent Functional Cognition: Independent DME/Equipment: Tub/Shower DME/Equipment Comments Pt. reports that she uses a cane. Drive Self: Yes OT Current Status Subjective No pain reported. Mental Status/Objective Patient Orientation: Person, Place, Time, Situation Current Upper Extremity ROM WFL Upper Extremity Strength WFL Pt. reports no residual deficits of weakness or motor control. ADL-Treatment Eating (QC): 6 (Pt. states that she is only allowed liquids at this time, and is having no difficulty bringing to mouth or swallowing.) On/Off Footwear (QC): 6 Toileting Hygiene (QC): 6 Toilet transfer (6) Other Treatments Pt. finishing on toilet when OT entered room. Pt. ambulated back to bed with nursing present. Nursing reports that she toileted independently. Pt. able to transfer to bed with no difficulty, pull blankets up, and adjust self. Pt. reports no difficulty with reaching feet. Declines sponge bath at this time and requests to rest. Due to observations of pt's movement/ADL ability, it is felt that OT is not warranted at this time. Pt. reports that she is having no other deficits, such as fine motor weakness. Reports that she is feeling better and is hoping to return home soon. All needs met in room. Education OT Patient Education: Correct positioning, Modified ADL techniques, Rehab process, Transfer techniques Teaching Recipient: Patient Teaching Methods: Demonstration, Discussion Response to Teaching: Verbalize Understanding, Return Demonstration OT Mate Chief Goals Usp Goals Time Frame: Jan 01, 2020 Additional Goals: 1-Demonstrate ADL Tasks, 2-Verbalize Understanding 1=Demonstrate adherence to instructed precautions during ADL tasks. 2=Patient will verbalize/demonstrate understanding of assistive devices/modifications for ADL. 3=Patient will improve strength/tolerance for activity to enable patient to perform ADL's. Pt. is ambulating safely with independence and is able to cleanse alexandra area after toileting, and reach feet for LE ADLs. No other deficits noted at this time. OT Education/Plan Problem List/Assessment Assessment: No Skilled OT Needs ID'd Discharge Recommendations Plan/Recommendations: Discharge/Goals Met Therapy Discharge Recommendati: Home & Family Treatment Plan/Plan of Care Treatment,Training & Education: Yes Plan of Care: OTHER (DC) Treatment Duration: Jan 01, 2020 Frequency: 1 time per week Estimated Hrs Per Day: .25 hour per day Agreement: Yes Rehab Potential: Good Time/GCodes Start Time: 10:45 Stop Time: 10:55 Total Time Billed (hr/min): 10 Billed Treatment Time 1, DEREK OLSON OT Jan 01, 2020 13:26
--- NOTE | 2020-01-01 14:20 | NUR ---
THIS NURSE CALLED REPORT TO VLAD SÁNCHEZ ON FOURTH FLOOR. BELONGINGS PACKED AND PT TAKEN DOWN VIA WHEELCHAIR.
--- NOTE | 2020-01-01 14:35 | NUR ---
Pt transferred to room 401. This RN received report from GONZALO Mathews. Pt comfortable and introduced to room at this time.
[2020-01-01] MEDS: inSUlin REGULAR TPN/DRIP 250 UNITS/NS 250 ML IV SCH ×2 (21:01)
[2020-01-01] MEDS: ENOXAPARIN 40 MG/0.4 ML (LOVENOX) SYR SC SCH (21:33)
[2020-01-02] MEDS: inSUlin ASPART (NovoLOG) 1 UNIT/0.01 ML (CHARGE PER UNIT) SC SCH ×3 (00:10→13:27)
[2020-01-02] MEDS: PROMETHAZINE INJ 25 MG/ML (PHENERGAN) AMP IVP PRN ×3 (00:48→13:06)
[2020-01-02 04:15] VITALS: BP 145/91
[2020-01-02 05:56] LABS: BASOPHILS # (AUTO) 0.1 10^3/uL (0.0-0.1); BASOPHILS % (AUTO) 1 % (0-10); EOSINOPHILS # (AUTO) 0.6 10^3/uL (0.0-0.3); EOSINOPHILS % (AUTO) 7 % (0-10); HEMATOCRIT 31 % (35-52); HEMOGLOBIN 10.7 G/DL (11.5-16.0); LYMPHOCYTES # (AUTO) 3.8 X 10^3 (1.0-4.0); LYMPHOCYTES % (AUTO) 40 % (12-44); MEAN CORPUSCULAR HEMOGLOBIN 30 PG (25-34); MEAN CORPUSCULAR HGB CONC 34 G/DL (32-36); MEAN CORPUSCULAR VOLUME 88 FL (80-99); MEAN PLATELET VOLUME 10.1 FL (7.4-10.4); MONOCYTES # (AUTO) 0.4 X 10^3 (0.0-1.0); MONOCYTES % (AUTO) 5 % (0-12); NEUTROPHILS # (AUTO) 4.6 X 10^3 (1.8-7.8); NEUTROPHILS % (AUTO) 48 % (42-75); PLATELET COUNT 224 10^3/uL (130-400); RED CELL DISTRIBUTION WIDTH 12.7 % (10.0-14.5); WHITE BLOOD COUNT 9.5 10^3/uL (4.3-11.0)
[2020-01-02] MEDS: PIPERACILLIN/TAZOBACTAM (BULK) 4.5 GM in NS (IVPB) 100 ML IV SCH (06:07)
[2020-01-02] MEDS: ACETAMINOPHEN 500 MG TAB (TYLENOL) PO PRN (06:07)
[2020-01-02] MEDS: VANCOMYCIN 750 MG/NS 250 ML IVPB IV SCH ×2 (06:07)
[2020-01-02 06:13] LABS: ALANINE AMINOTRANSFERASE 12 U/L (0-55); ALBUMIN 3.1 GM/DL (3.2-4.5); ALKALINE PHOSPHATASE 76 U/L (40-136); BILIRUBIN,TOTAL 0.3 MG/DL (0.1-1.0); BUN/CREATININE RATIO 9; CALCIUM 8.4 MG/DL (8.5-10.1); CARBON DIOXIDE 21 MMOL/L (21-32); CHLORIDE 108 MMOL/L (98-107); CREATININE SERUM 0.76 MG/DL (0.60-1.30); GFR ESTIMATED > 60; GLUCOSE 230 MG/DL (70-105); MAGNESIUM 1.6 MG/DL (1.6-2.4); PHOSPHORUS 3.5 MG/DL (2.3-4.7); POTASSIUM 3.2 MMOL/L (3.6-5.0); SODIUM 139 MMOL/L (135-145); TOTAL PROTEIN 5.6 GM/DL (6.4-8.2)
[2020-01-02 07:31] VITALS: BP 175/85
[2020-01-02] MEDS ORDERED: KCL 20 MEQ TAB (K-DUR) PO NR (07:45)
--- NOTE | 2020-01-02 07:50 | Progress Note ---
Subjective Time Seen by a Provider: 07:48 Subjective/Events-last exam Patient improving. Hypertensive. UTI. Hypokalemia. Hyperlipidemia. Tobaccoism. Strokelike symptoms. Objective Exam Vital Signs Date Time Temp Pulse Resp B/P (MAP) Pulse Ox O2 Delivery O2 Flow Rate FiO2 01/02/20 07:31 37.0 69 20 175/85 (115) 99 Room Air 01/02/20 04:15 36.8 71 20 145/91 (109) 98 Room Air 01/01/20 23:34 37.2 84 14 146/74 (98) 98 Room Air 01/01/20 20:00 37.4 71 20 149/76 (100) 99 Room Air 01/01/20 20:00 99 Room Air 01/01/20 16:00 37.2 74 20 145/76 (99) 97 Room Air 01/01/20 12:45 79 01/01/20 12:00 99 Room Air 01/01/20 11:11 37.4 01/01/20 08:00 96 Room Air I & O 01/02/20 07:00 Intake Total 1380 ml Balance 1380 ml Capillary Refill : Less Than 3 Seconds General Appearance: No Apparent Distress, Thin HEENT: Normal ENT Inspection Neck: Full Range of Motion, Normal Inspection Respiratory: Normal Breath Sounds, No Accessory Muscle Use, No Respiratory Distress Cardiovascular: Regular Rate, Rhythm, No Murmur Gastrointestinal: non tender, soft Results Lab Laboratory Tests 01/02/20 05:50 Laboratory Tests 01/01/20 12:42: Glucometer 436*H 01/01/20 18:01: Glucometer 215H 01/01/20 23:39: Glucometer 305H 01/02/20 05:46: Glucometer 229H 01/02/20 05:50: White Blood Count 9.5, Red Blood Count 3.55L, Hemoglobin 10.7L, Hematocrit 31L, Mean Corpuscular Volume 88, Mean Corpuscular Hemoglobin 30, Mean Corpuscular Hemoglobin Concent 34, Red Cell Distribution Width 12.7, Platelet Count 224, Mean Platelet Volume 10.1, Neutrophils (%) (Auto) 48, Lymphocytes (%) (Auto) 40, Monocytes (%) (Auto) 5, Eosinophils (%) (Auto) 7, Basophils (%) (Auto) 1, Neutrophils # (Auto) 4.6, Lymphocytes # (Auto) 3.8, Monocytes # (Auto) 0.4, Eosinophils # (Auto) 0.6H, Basophils # (Auto) 0.1, Sodium Level 139, Potassium Level 3.2L, Chloride Level 108H, Carbon Dioxide Level 21, Anion Gap 10, Blood Urea Nitrogen 7, Creatinine 0.76, Estimat Glomerular Filtration Rate > 60, BUN/Creatinine Ratio 9, Glucose Level 230H, Calcium Level 8.4L, Corrected Calcium 9.1, Phosphorus Level 3.5, Magnesium Level 1.6, Total Bilirubin 0.3, Aspartate Amino Transf (AST/SGOT) 9, Alanine Aminotransferase (ALT/SGPT) 12, Alkaline Phosphatase 76, Total Protein 5.6L, Albumin 3.1L Microbiology 12/30/19 Influenza Types A,B Antigen (RACHELL) - Final, Complete 12/30/19 Blood Culture - Preliminary, Resulted No growth 12/30/19 Urine Culture - Final, Complete Escherichia coli Assessment/Plan Assessment/Plan Assess & Plan/Chief Complaint Diabetes. Strokelike symptoms resolved. Nauseousness. CAD. . 01/01/2020. Diabetes. Coronary artery disease. Hypertension. Hypoglycemia. Bradycardia. Patient doing better today and to be transferred to medical floor. . 01/02/2020. Diabetes. Coronary artery disease. Hypertension. Hypoglycemia. Bradycardia. Patient feeling better and wants to go home today Clinical Quality Measures Admission Status Admission Dx Hypertensive urgency. Diabetes. Coronary artery disease. Patient has a cardiac device implanted and unable to do MRI. Confusion. Conversion reaction or DVT/VTE Risk/Contraindication: Risk Factor Score Per Nursin RFS Level Per Nursing on Admit: 2=Moderate CINDY CALABRESE DO Jan 02, 2020 07:50
[2020-01-02] MEDS: meTOproloL SUCCINATE 50 MG (TOPROL XL) TAB PO SCH (08:59)
[2020-01-02] MEDS: amLODIPine 5 MG (NORVASC) TAB PO SCH (08:59)
[2020-01-02] MEDS: ASPIRIN E.C. 81 MG (ECOTRIN) TAB PO SCH (08:59)
[2020-01-02] MEDS: PANTOPRAZOLE 20 MG TABLET (PROTONIX) PO SCH (08:59)
[2020-01-02] MEDS: LORATADINE (CLARITIN) 10 MG TAB PO SCH (08:59)
[2020-01-02] MEDS: hydrALAZINE (APESOLINE) 20 MG/ML VIAL IV PRN (09:00)
[2020-01-02 09:30] LABS: BILIRUBIN,URINE NEGATIVE (NEGATIVE); CLARITY,URINE CLEAR; COLOR,URINE YELLOW; GLUCOSE, URINE (UA) NEGATIVE (NEGATIVE); KETONES,URINE NEGATIVE (NEGATIVE); LEUKOCYTE ESTERASE ,URINE NEGATIVE (NEGATIVE); NITRITE,URINE NEGATIVE (NEGATIVE); PH,URINE 6.5 (5-9); PROTEIN,URINE 3+ (NEGATIVE)
[2020-01-02 09:41] LABS: BACTERIA,URINE TRACE /HPF; SQUAMOUS EPITHELIAL CELL,UR 0-2 /HPF; WBC,URINE RARE /HPF
[2020-01-02] MEDS: HALOPERIDOL 5 MG/ML (HALDOL) AMP IV PRN (10:18)
--- NOTE | 2020-01-02 11:20 | Progress Note - Cardiology ---
Cardiology SOAP Progress Note Subjective: Lying in bed. States she feels much better today. No c/o CP, dyspnea, palpitations, syncope or near syncope. Objective: I&O/Vital Signs Weight (Pounds): 122 Weight (Ounces): 1.0 Weight (Calculated Kilograms): 55.417113 Constitutional: AAO x 3, well-developed, well-nourished Respiratory: No accessory muscle use, No respiratory distress; chest expansion is symmetric, chest is bilaterally symmetric, other (good bilat air entry) Cardiovascular: No JVD; S1 and S2, systolic murmur (faint PAT at card base) Gastrointestional: soft; No guarding, No rebound; audible bowel sounds Extremities: No clubbing, No cyanosis; no lower extremity edema bilateral Neurologic/Psychiatric: oriented x 3, other (move all her limbs equally) Skin: No rash on exposed areas, No ulcerations on exposed areas Results/Procedures: Labs Microbiology 01/02/20 Urine Culture - Final, Complete NO GROWTH 12/30/19 Influenza Types A,B Antigen (RACHELL) - Final, Complete 12/30/19 Blood Culture - Final, Complete No growth A/P: Assessment: Probable septic shock from UTI, improved Hypertension - improved Hypokalemia - replace H/o syncope, mostly postural. S/P ILR implant on 11-10-2019. 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 Underwent stenting of mid LAD Resolute Integrity 2.5x[address] Cohen on 07/13/15; Last cath on 01/20/19: patent mid LAD stent with 50% post-stent (FFR 0.86), 50% distal LCX OM and D1 and prox and distal RCA. LVEF 65%, LVEDP 15 mmHg (essentially unchanged compared to previous caths). MPI of 04-04-19 showed no evidence of any signif ischemia or infarction. LVEF 86% Echo on 01/19/19: LVEF 60-65%, grade 1 moody dysfunction, PASP 25 mmHg DM II, insulin-requiring, managed by her float phlebotomist, Dr Nash Hypertension, by history Hyperlipidemia, managed by Dr Huertas Chronic tobacco use Chronic pain, mostly back pain, treated with chronic narcotic analgesics and multiple back surgeries for bulging discs (cervical and lumbar spines) Psoriatic arthritis Hardness of hearing H/o MIHIR, but noncompliant with therapy Approx 60% R ICA, less than 50% L ICA stenosis on carotid u/s of March 2019 Intermittent non-compliance with f/u H/o CKD that is followed by Dr. Court Saha of Nephrology services Plan: * Continue current regimen * Replenish lytes * Monitor labs SHIRA BOOTHE Jan 02, 2020 11:20
[2020-01-02] MEDS ORDERED: METO50TA7 PO (11:28)
[2020-01-02] MEDS ORDERED: ATOR10TA66 PO (11:28)
[2020-01-02] MEDS ORDERED: MTP25TSR PO (11:28)
[2020-01-02] MEDS ORDERED: AMLO5TAB9 PO (11:28)
[2020-01-02] MEDS ORDERED: AMOX500C2 PO (12:00)
--- NOTE | 2020-01-02 13:57 | NUR ---
PAGED DR FELIX. PATIENT IS LEAVING NOW. SHE STATES THAT SHE WOULD NOT BE ABLE TO WAIT TO SEE HIM. HER RIDE IS HERE NOW. IF SHE DOESN'T LEAVE NOW SHE WILL NOT HAVE A RIDE HOME TODAY.
[2020-01-02 14:00] VITALS: BP 175/85
--- NOTE | 2020-01-03 06:43 | Discharge Summary ---
Diagnosis/Chief Complaint Date of Admission Dec 27, 2019 at 21:25 Date of Discharge Jan 02, 2020 at 14:00 Discharge Date: Jan 02, 2020 Discharge Time: 06:40 Discharge Diagnosis Abnormal weight loss. Acute respiratory failure. Hypoxia. Anxiety disorder. Coronary artery disease. Bradycardia. Conversion disorder. Fibromyalgia. Hypertensive urgency. Hypokalemia. Diabetes. Personal history of nicotine dependence. UTI. UTI due to Escherichia coli. Hypoglycemia Reason Hospital Visit Patient released from hospital yesterday. Patient came back yesterday by EMS due to having left sided numbness. Neurologic the hospital numbness changed to the right side. Patient's blood pressure elevated Patient this morning appears confused. Patient does not note 10-2 equals A she states it equals 2. Patient confused in her answers. Unable to get good history from patient Discharge Summary Procedures Put on ventilator Consultations Cardiology. Pulmonology Discharge Physical Examination Allergies: Coded Allergies: ketorolac (Verified Allergy, Severe, ANAPHYLAXIS, PT TAKES ASA AT HOME, 03/06/19) ondansetron (Verified Allergy, Intermediate, RASH, 03/06/19) RASH/ HIVES scopolamine (Verified Allergy, Mild, Rash, 03/21/19) exenatide (Verified Allergy, Unknown, NAUSEA, 03/06/19) NON STOP VOMITING latex (Verified Allergy, Unknown, RASH, 03/06/19) metoclopramide (Verified Allergy, Unknown, RESTLESS LEGS, 03/06/19) erythromycin base (Verified Adverse Reaction, Unknown, 03/21/19) Vitals & I&Os Vital Signs Date Time Temp Pulse Resp B/P (MAP) Pulse Ox O2 Delivery O2 Flow Rate FiO2 01/02/20 14:00 37.0 69 20 175/85 99 Room Air 12/31/19 21:13 2.00 12/31/19 04:00 21 Hospital Course Patient did better and discharged home. To be followed up in the office Labs (last 24 hrs) Laboratory Tests 12/27/19 19:32: Glucometer 132H 12/27/19 19:39: White Blood Count 12.8H, Red Blood Count 4.96, Hemoglobin 14.9, Hematocrit 43, Mean Corpuscular Volume 87, Mean Corpuscular Hemoglobin 30, Mean Corpuscular Hemoglobin Concent 35, Red Cell Distribution Width 13.1, Platelet Count 376, Mean Platelet Volume 9.9, Neutrophils (%) (Auto) 44, Lymphocytes (%) (Auto) 49H, Monocytes (%) (Auto) 5, Eosinophils (%) (Auto) 2, Basophils (%) (Auto) 1, Neutrophils # (Auto) 5.6, Lymphocytes # (Auto) 6.3H, Monocytes # (Auto) 0.6, Eosinophils # (Auto) 0.3, Basophils # (Auto) 0.1, Prothrombin Time 12.9, INR Comment 0.9, Activated Partial Thromboplast Time 23L, D-Dimer < 0.27, Sodium Level 139, Potassium Level 4.1, Chloride Level 102, Carbon Dioxide Level 27, Anion Gap 10, Blood Urea Nitrogen 19H, Creatinine 1.27, Estimat Glomerular Filtration Rate 43, BUN/Creatinine Ratio 15, Glucose Level 122H, Calcium Level 10.1, Corrected Calcium 9.9, Total Bilirubin 0.3, Aspartate Amino Transf (AST/SGOT) 10, Alanine Aminotransferase (ALT/SGPT) 13, Alkaline Phosphatase 94, Troponin I < 0.028, Total Protein 7.6, Albumin 4.3 12/27/19 19:40: Urine Color YELLOW, Urine Clarity CLEAR, Urine pH 6.5, Urine Specific [place] 1.020, Urine Protein 3+H, Urine Glucose (UA) 3+H, Urine Ketones NEGATIVE, Urine Nitrite NEGATIVE, Urine Bilirubin NEGATIVE, Urine Urobilinogen 0.2, Urine Leukocyte Esterase NEGATIVE, Urine RBC (Auto) NEGATIVE, Urine RBC RARE, Urine WBC NONE, Urine Crystals NONE, Urine Bacteria NEGATIVE, Urine Casts PRESENT, Urine Hyaline Casts RARE, Urine Mucus NEGATIVE, Urine Culture Indicated NO, Urine Opiates Screen NEGATIVE, Urine Oxycodone Screen NEGATIVE, Urine Methadone Screen NEGATIVE, Urine Propoxyphene Screen NEGATIVE, Urine Barbiturates Screen NEGATIVE, Ur Tricyclic Antidepressants Screen NEGATIVE, Urine Phencyclidine Screen NEGATIVE, Urine Amphetamines Screen NEGATIVE, Urine Methamphetamines Screen NEGATIVE, Urine Benzodiazepines Screen NEGATIVE, Urine Cocaine Screen NEGATIVE, Urine Cannabinoids Screen NEGATIVE 12/28/19 03:45: White Blood Count 16.8H, Red Blood Count 4.07L, Hemoglobin 12.1, Hematocrit 36, Mean Corpuscular Volume 87, Mean Corpuscular Hemoglobin 30, Mean Corpuscular Hemoglobin Concent 34, Red Cell Distribution Width 12.6, Platelet Count 304, Mean Platelet Volume 9.9, Neutrophils (%) (Auto) 68, Lymphocytes (%) (Auto) 27, Monocytes (%) (Auto) 4, Eosinophils (%) (Auto) 1, Basophils (%) (Auto) 1, Neutrophils # (Auto) 11.5H, Lymphocytes # (Auto) 4.5H, Monocytes # (Auto) 0.7, Eosinophils # (Auto) 0.2, Basophils # (Auto) 0.1, Sodium Level 135, Potassium Level 3.6, Chloride Level 103, Carbon Dioxide Level 20L, Anion Gap 12, Blood Urea Nitrogen 16, Creatinine 0.93, Estimat Glomerular Filtration Rate > 60, BUN/Creatinine Ratio 17, Glucose Level 211H, Calcium Level 8.8, Corrected Calcium 9.1, Total Bilirubin 0.3, Aspartate Amino Transf (AST/SGOT) 9, Alanine Aminotransferase (ALT/SGPT) 11, Alkaline Phosphatase 78, Total Protein 6.3L, Albumin 3.6, Phosphorus Level 4.1, Magnesium Level 1.6, Triglycerides Level 234H , Cholesterol Level 179, LDL Cholesterol Direct 109, VLDL Cholesterol 47H, HDL Cholesterol 36L 12/28/19 11:57: Glucometer 305H 12/28/19 15:49: Glucometer 121H 12/28/19 19:54: Glucometer 481*H 12/28/19 21:03: Glucometer 522*H 12/28/19 22:03: Glucometer 524*H 12/28/19 23:03: Glucometer 428*H 12/29/19 00:22: Glucometer 216H 12/29/19 00:23: Sodium Level 136, Potassium Level 3.5L, Chloride Level 104, Carbon Dioxide Level 21, Anion Gap 11, Blood Urea Nitrogen 19H, Creatinine 0.90, Estimat Glomerular Filtration Rate > 60, BUN/Creatinine Ratio 21, Glucose Level 228H, Calcium Level 9.3 12/29/19 01:26: Glucometer 283H 12/29/19 02:23: Glucometer 200H 12/29/19 03:30: Glucometer 177H 12/29/19 03:32: White Blood Count 13.2H, Red Blood Count 4.19L, Hemoglobin 12.6, Hematocrit 36, Mean Corpuscular Volume 86, Mean Corpuscular Hemoglobin 30, Mean Corpuscular Hemoglobin Concent 35, Red Cell Distribution Width 12.5, Platelet Count 284, Mean Platelet Volume 9.8, Neutrophils (%) (Auto) 68, Lymphocytes (%) (Auto) 25, Monocytes (%) (Auto) 5, Eosinophils (%) (Auto) 1, Basophils (%) (Auto) 1, Neutrophils # (Auto) 9.0H, Lymphocytes # (Auto) 3.3, Monocytes # (Auto) 0.7, Eosinophils # (Auto) 0.2, Basophils # (Auto) 0.1, Sodium Level 136, Potassium Level 3.8, Chloride Level 106, Carbon Dioxide Level 19L, Anion Gap 11, Blood Urea Nitrogen 16, Creatinine 0.80, Estimat Glomerular Filtration Rate > 60, BUN/Creatinine Ratio 20, Glucose Level 184H, Calcium Level 9.2, Phosphorus Level 2.2L, Magnesium Level 1.8 12/29/19 04:31: Glucometer 188H 12/29/19 05:24: Glucometer 125H 12/29/19 06:28: Glucometer 90 12/29/19 10:58: Glucometer 140H 12/29/19 15:59: Glucometer 205H 12/29/19 19:53: Glucometer 152H 12/30/19 00:10: Glucometer 328H 12/30/19 03:15: White Blood Count 20.4H, Red Blood Count 3.98L, Hemoglobin 12.0, Hematocrit 35, Mean Corpuscular Volume 87, Mean Corpuscular Hemoglobin 30, Mean Corpuscular Hemoglobin Concent 35, Red Cell Distribution Width 13.0, Platelet Count 339, Mean Platelet Volume 9.7, Neutrophils (%) (Auto) 44, Lymphocytes (%) (Auto) 47H, Monocytes (%) (Auto) 6, Eosinophils (%) (Auto) 3, Basophils (%) (Auto) 0, Neutrophils # (Auto) 9.1H, Lymphocytes # (Auto) 9.6H, Monocytes # (Auto) 1.2H, Eosinophils # (Auto) 0.5H, Basophils # (Auto) 0.1, Sodium Level 142, Potassium Level 2.7L, Chloride Level 111H, Carbon Dioxide Level 21, Anion Gap 10, Blood Urea Nitrogen 14, Creatinine 0.85, Estimat Glomerular Filtration Rate > 60, BUN/Creatinine Ratio 16, Glucose Level 10*L, Calcium Level 8.8, Phosphorus Level 3.3, Magnesium Level 1.7 2/8/20 04:00: Sodium Level 139, Potassium Level 2.8L, Chloride Level 110H, Carbon Dioxide Level 21, Anion Gap 8, Blood Urea Nitrogen 14, Creatinine 0.84, Estimat Glomerular Filtration Rate > 60, BUN/Creatinine Ratio 17, Glucose Level 188H, Calcium Level 8.3L 12/30/19 04:01: Glucometer 175H 12/30/19 04:04: Glucometer 246H 12/30/19 04:24: Glucometer 123H 12/30/19 04:45: Blood Gas Puncture Site LEFT RADIAL, Blood Gas Patient Temperature 35.2, Arterial Blood pH 7.39, Arterial Blood Partial Pressure CO2 37, Arterial Blood Partial Pressure O2 97H, Arterial Blood HCO3 22L, Arterial Blood Total CO2 23.2, Arterial Blood Oxygen Saturation 96, Arterial Blood Base Excess -2.6L, Antonio Test YES-POS, Blood Gas Ventilator Setting NO, Blood Gas Inspired Oxygen ROOM AIR 12/30/19 04:48: Glucometer 91 12/30/19 05:24: Glucometer 181H 12/30/19 05:53: Glucometer 188H 12/30/19 06:00: Urine Color YELLOW, Urine Clarity CLOUDY, Urine pH 5.5, Urine Specific [place] 1.025H, Urine Protein 3+H, Urine Glucose (UA) 1+H, Urine Ketones NEGATIVE, Urine Nitrite NEGATIVE, Urine Bilirubin NEGATIVE, Urine Urobilinogen 0.2, Urine Leukocyte Esterase 2+H, Urine RBC (Auto) 3+H, Urine RBC 10-25H, Urine WBC TNTCH, Urine Crystals NONE, Urine Bacteria LARGEH, Urine Casts NONE, Urine Mucus MODERATEH, Urine Culture Indicated YES, Urine Opiates Screen NEGATIVE, Urine Oxycodone Screen NEGATIVE, Urine Methadone Screen NEGATIVE, Urine Propoxyphene Screen NEGATIVE, Urine Barbiturates Screen NEGATIVE, Ur Tricyclic Antidepressants Screen NEGATIVE, Urine Phencyclidine Screen NEGATIVE, Urine Amphetamines Screen NEGATIVE, Urine Methamphetamines Screen NEGATIVE, Urine [place] zodiazepines Screen NEGATIVE, Urine Cocaine Screen NEGATIVE, Urine Cannabinoids Screen NEGATIVE 12/30/19 06:30: Free Triiodothyronine 2.01 12/30/19 06:36: Sodium Level 139, Potassium Level 3.3L, Chloride Level 112H, Carbon Dioxide Level 20L, Anion Gap 7, Blood Urea Nitrogen 14, Creatinine 0.82, Estimat Glomerular Filtration Rate > 60, BUN/Creatinine Ratio 17, Glucose Level 181H, Lactic Acid Level 0.92, Calcium Level 8.1L, Corrected Calcium 8.9, Phosphorus Level 4.5, Magnesium Level 1.7, Total Bilirubin 0.2, Aspartate Amino Transf (AST/SGOT) 11, Alanine Aminotransferase (ALT/SGPT) 10, Alkaline Phosphatase 63, Troponin I < 0.028, Total Protein 5.4L, Albumin 3.0L, Thyroid Stimulating Hormone (TSH) 0.56, Free Thyroxine 0.86 12/30/19 06:49: Glucometer 170H 12/30/19 07:25: Blood Gas Puncture Site LT RAD, Blood Gas Patient Temperature 34.5, Arterial Blood pH 7.35L, Arterial Blood Partial Pressure CO2 36, Arterial Blood Partial Pressure O2 79, Arterial Blood HCO3 20L, Arterial Blood Total CO2 21.6, Arterial Blood Oxygen Saturation 96, Arterial Blood Base Excess -4.7L, Antonio Test YES- POS, Blood Gas Ventilator Setting NO, Blood Gas Inspired Oxygen ROOM AIR, Ammonia 22, Triglycerides Level 119 12/30/19 09:03: Glucometer 175H 12/30/19 09:08: Blood Gas Puncture Site LT RAD, Blood Gas Patient Temperature 35.9, Arterial Blood pH 7.36L, Arterial Blood Partial Pressure CO2 36, Arterial Blood Partial Pressure O2 51L, Arterial Blood HCO3 20L, Arterial Blood Total CO2 21.6, Arterial Blood Oxygen Saturation 85L, Arterial Blood Base Excess -4.3L, Antonio Test YES-POS, Blood Gas Ventilator Setting YES, Blood Gas Inspired Oxygen 60% 12/30/19 10:49: Glucometer 259H 12/30/19 11:52: Glucometer 296H 12/30/19 12:48: Glucometer 278H 12/30/19 13:49: Glucometer 252H 12/30/19 15:02: Glucometer 170H 12/30/19 15:26: Potassium Level 3.9 12/30/19 15:54: Glucometer 141H 12/30/19 16:55: Glucometer 130H 12/30/19 18:04: Glucometer 134H 12/30/19 19:09: Glucometer 153H 12/30/19 20:59: Glucometer 165H 12/30/19 22:41: Glucometer 251H 12/31/19 00:04: Glucometer 232H 12/31/19 01:32: Glucometer 221H 12/31/19 03:00: White Blood Count 11.6H, Red Blood Count 3.32L, Hemoglobin 10.1L, Hematocrit 30L , Mean Corpuscular Volume 91, Mean Corpuscular Hemoglobin 30, Mean Corpuscular Hemoglobin Concent 34, Red Cell Distribution Width 13.2, Platelet Count 202, Mean Platelet Volume 10.3, Neutrophils (%) (Auto) 69, Lymphocytes (%) (Auto) 24, Monocytes (%) (Auto) 3, Eosinophils (%) (Auto) 4, Basophils (%) (Auto) 1, Neutrophils # (Auto) 8.0H, Lymphocytes # (Auto) 2.8, Monocytes # (Auto) 0.4, Eosinophils # (Auto) 0.4H, Basophils # (Auto) 0.1, Blood Gas Puncture Site RIGHT RADIAL, Blood Gas Patient Temperature 37.0, Arterial Blood pH 7.44H, Arterial Blood Partial Pressure CO2 25L, Arterial Blood Partial Pressure O2 76L, Arterial Blood HCO3 18L, Arterial Blood Total CO2 17.3L, Arterial Blood Oxygen Saturation 96, Arterial Blood Base Excess -6.8L, Antonio Test YES-POS, Blood Gas Ventilator Setting YES, Blood Gas Inspired Oxygen 21%, Sodium Level 144, Potassium Level 3.6, Chloride Level 120H, Carbon Dioxide Level 16L, Anion Gap 8, Blood Urea Nitrogen 9, Creatinine 0.82, Estimat Glomerular Filtration Rate > 60, BUN/Creatinine Ratio 11, Glucose Level 240H, Calcium Level 7.9L, Phosphorus Level 3.0, Magnesium Level 1.5L 12/31/19 05:59: Glucometer 250H 12/31/19 13:01: Glucometer 290H 12/31/19 15:46: Glucometer 207H 12/31/19 16:33: Glucometer 139H 12/31/19 17:35: Glucometer 243H 12/31/19 20:19: Glucometer 306H 12/31/19 23:31: Glucometer 253H 01/01/20 03:13: White Blood Count 8.7, Red Blood Count 3.18L, Hemoglobin 9.5L, Hematocrit 29L, Mean Corpuscular Volume 90, Mean Corpuscular Hemoglobin 30, Mean Corpuscular Hemoglobin Concent 33, Red Cell Distribution Width 13.2, Platelet Count 202, Mean Platelet Volume 9.8, Neutrophils (%) (Auto) 52, Lymphocytes (%) (Auto) 35, Monocytes (%) (Auto) 5, Eosinophils (%) (Auto) 7, Basophils (%) (Auto) 1, Neutrophils # (Auto) 4.5, Lymphocytes # (Auto) 3.0, Monocytes # (Auto) 0.5, Eosinophils # (Auto) 0.6H, Basophils # (Auto) 0.1, Sodium Level 143, Potassium Level 3.0L, Chloride Level 114H, Carbon Dioxide Level 20L, Anion Gap 9, Blood Urea Nitrogen 5L, Creatinine 0.78, Estimat Glomerular Filtration Rate > 60, BUN/Creatinine Ratio 6, Glucose Level 123H, Calcium Level 8.2L, Phosphorus Level 3.4, Magnesium Level 1.6, Triglycerides Level 110 01/01/20 06:06: Vancomycin Level Trough 16.9 01/01/20 12:42: Glucometer 436*H 01/01/20 18:01: Glucometer 215H 01/01/20 23:39: Glucometer 305H 01/02/20 05:20: Urine Color YELLOW, Urine Clarity CLEAR, Urine pH 6.5, Urine Specific [place] 1.020, Urine Protein 3+H, Urine Glucose (UA) NEGATIVE, Urine Ketones NEGATIVE, Urine Nitrite NEGATIVE, Urine Bilirubin NEGATIVE, Urine Urobilinogen 0.2, Urine Leukocyte Esterase NEGATIVE, Urine RBC (Auto) NEGATIVE, Urine RBC NONE, Urine WBC RARE, Urine Squamous Epithelial Cells 0-2, Urine Crystals NONE, Urine Bacteria TRACE, Urine Casts NONE, Urine Mucus NEGATIVE, Urine Culture Indicated YES 01/02/20 05:46: Glucometer 229H 01/02/20 05:50: White Blood Count 9.5, Red Blood Count 3.55L, Hemoglobin 10.7L, Hematocrit 31L, Mean Corpuscular Volume 88, Mean Corpuscular Hemoglobin 30, Mean Corpuscular Hemoglobin Concent 34, Red Cell Distribution Width 12.7, Platelet Count 224, Mean Platelet Volume 10.1, Neutrophils (%) (Auto) 48, Lymphocytes (%) (Auto) 40, Monocytes (%) (Auto) 5, Eosinophils (%) (Auto) 7, Basophils (%) (Auto) 1, Neutrophils # (Auto) 4.6, Lymphocytes # (Auto) 3.8, Monocytes # (Auto) 0.4, Eosinophils # (Auto) 0.6H, Basophils # (Auto) 0.1, Sodium Level 139, Potassium Level 3.2L, Chloride Level 108H, Carbon Dioxide Level 21, Anion Gap 10, Blood Urea Nitrogen 7, Creatinine 0.76, Estimat Glomerular Filtration Rate > 60, BUN/Creatinine Ratio 9, Glucose Level 230H, Calcium Level 8.4L, Corrected Calcium 9.1, Phosphorus Level 3.5, Magnesium Level 1.6, Total Bilirubin 0.3, Aspartate Amino Transf (AST/SGOT) 9, Alanine Aminotransferase (ALT/SGPT) 12, Alkaline Phosphatase 76, Total Protein 5.6L, Albumin 3.1L 01/02/20 13:12: Glucometer 371H Microbiology 12/30/19 Influenza Types A,B Antigen (RACHELL) - Final, Complete 12/30/19 Blood Culture - Preliminary, Resulted No growth 12/30/19 Urine Culture - Final, Complete Escherichia coli Laboratory Tests 12/27/19 19:39 12/28/19 03:45 12/29/19 00:23 12/29/19 03:32 12/30/19 03:15 12/30/19 04:00 12/30/19 06:36 12/30/19 15:26 12/31/19 03:00 01/01/20 03:13 01/02/20 05:50 Pending Labs Microbiology Date/Time Source Procedure Growth Status 12/30/19 08:43 Nasal Aspirate Influenza Types A,B Antigen (RACHELL) - Final Complete 12/30/19 08:10 Sputum Endotracheal Gram Stain - Final Complete 12/30/19 08:10 Sputum Culture - Final Usual upper respiratory yasmany Strep agalactiae Group B Complete 12/30/19 06:52 Peripheral Right Wrist Blood Culture - Preliminary No growth Resulted 12/30/19 06:44 [place], Nos Blood Culture - Preliminary No growth Resulted 12/30/19 06:37 Peripheral Lt Hand Blood Culture - Preliminary No growth Resulted 12/30/19 06:00 Urine Straight Cath, In/Out Urine Culture - Final Escherichia coli Complete 12/28/19 00:35 Nasal MRSA Screen - Final MRSA not isolated Complete Laboratory Tests 12/27/19 19:32: Glucometer 132 12/27/19 19:39: White Blood Count 12.8, Red Blood Count 4.96, Hemoglobin 14.9, Hematocrit 43, Mean Corpuscular Volume 87, Mean Corpuscular Hemoglobin 30, Mean Corpuscular Hemoglobin Concent 35, Red Cell Distribution Width 13.1, Platelet Count 376, Mean Platelet Volume 9.9, Neutrophils (%) (Auto) 44, Lymphocytes (%) (Auto) 49, Monocytes (%) (Auto) 5, Eosinophils (%) (Auto) 2, Basophils (%) (Auto) 1, Neutrophils # (Auto) 5.6, Lymphocytes # (Auto) 6.3, Monocytes # (Auto) 0.6, Eosinophils # (Auto) 0.3, Basophils # (Auto) 0.1, Prothrombin Time 12.9, INR Comment 0.9, Activated Partial Thromboplast Time 23, D-Dimer < 0.27, Sodium Level 139, Potassium Level 4.1, Chloride Level 102, Carbon Dioxide Level 27, Anion Gap 10, Blood Urea Nitrogen 19, Creatinine 1.27, Estimat Glomerular Filtration Rate 43, BUN/Creatinine Ratio 15, Glucose Level 122, Calcium Level 10.1, Corrected Calcium 9.9, Total Bilirubin 0.3, Aspartate Amino Transf (AST/ SGOT) 10, Alanine Aminotransferase (ALT/SGPT) 13, Alkaline Phosphatase 94, Troponin I < 0.028, Total Protein 7.6, Albumin 4.3 12/27/19 19:40: Urine Color YELLOW, Urine Clarity CLEAR, Urine pH 6.5, Urine Specific [place] 1.020, Urine Protein 3+, Urine Glucose (UA) 3+, Urine Ketones NEGATIVE, Urine Nitrite NEGATIVE, Urine Bilirubin NEGATIVE, Urine Urobilinogen 0.2, Urine Leukocyte Esterase NEGATIVE, Urine RBC (Auto) NEGATIVE, Urine RBC RARE, Urine WBC NONE, Urine Crystals NONE, Urine Bacteria NEGATIVE, Urine Casts PRESENT, Urine Hyaline Casts RARE, Urine Mucus NEGATIVE, Urine Culture Indicated NO, Urine Opiates Screen NEGATIVE, Urine Oxycodone Screen NEGATIVE, Urine Methadone Screen NEGATIVE, Urine Propoxyphene Screen NEGATIVE, Urine Barbiturates Screen NEGATIVE, Ur Tricyclic Antidepressants Screen NEGATIVE, Urine Phencyclidine Screen NEGATIVE, Urine Amphetamines Screen NEGATIVE, Urine Methamphetamines Screen NEGATIVE, Urine Benzodiazepines Screen NEGATIVE, Urine Cocaine Screen NEGATIVE, Urine Cannabinoids Screen NEGATIVE 12/28/19 03:45: White Blood Count 16.8, Red Blood Count 4.07, Hemoglobin 12.1, Hematocrit 36, Mean Corpuscular Volume 87, Mean Corpuscular Hemoglobin 30, Mean Corpuscular Hemoglobin Concent 34, Red Cell Distribution Width 12.6, Platelet Count 304, Mean Platelet Volume 9.9, Neutrophils (%) (Auto) 68, Lymphocytes (%) (Auto) 27, Monocytes (%) (Auto) 4, Eosinophils (%) (Auto) 1, Basophils (%) (Auto) 1, Neutrophils # (Auto) 11.5, Lymphocytes # (Auto) 4.5, Monocytes # (Auto) 0.7, Eosinophils # (Auto) 0.2, Basophils # (Auto) 0.1, Sodium Level 135, Potassium Level 3.6, Chloride Level 103, Carbon Dioxide Level 20, Anion Gap 12, Blood Urea Nitrogen 16, Creatinine 0.93, Estimat Glomerular Filtration Rate > 60, BUN/Creatinine Ratio 17, Glucose Level 211, Calcium Level 8.8, Corrected Calcium 9.1, Total Bilirubin 0.3, Aspartate Amino Transf (AST/SGOT) 9, Alanine Aminotransferase (ALT/SGPT) 11, Alkaline Phosphatase 78, Total Protein 6.3, Albumin 3.6, Phosphorus Level 4.1, Magnesium Level 1.6, Triglycerides Level 234, Cholesterol Level 179, LDL Cholesterol Direct 109, VLDL Cholesterol 47, HDL Cholesterol 36 12/28/19 11:57: Glucometer 305 12/28/19 15:49: Glucometer 121 12/28/19 19:54: Glucometer 481 12/28/19 21:03: Glucometer 522 12/28/19 22:03: Glucometer 524 12/28/19 23:03: Glucometer 428 12/29/19 00:22: Glucometer 216 12/29/19 00:23: Sodium Level 136, Potassium Level 3.5, Chloride Level 104, Carbon Dioxide Level 21, Anion Gap 11, Blood Urea Nitrogen 19, Creatinine 0.90, Estimat Glomerular Filtration Rate > 60, BUN/Creatinine Ratio 21, Glucose Level 228, Calcium Level 9.3 12/29/19 01:26: Glucometer 283 12/29/19 02:23: Glucometer 200 12/29/19 03:30: Glucometer 177 12/29/19 03:32: White Blood Count 13.2, Red Blood Count 4.19, Hemoglobin 12.6, Hematocrit 36, Mean Corpuscular Volume 86, Mean Corpuscular Hemoglobin 30, Mean Corpuscular Hemoglobin Concent 35, Red Cell Distribution Width 12.5, Platelet Count 284, Mean Platelet Volume 9.8, Neutrophils (%) (Auto) 68, Lymphocytes (%) (Auto) 25, Monocytes (%) (Auto) 5, Eosinophils (%) (Auto) 1, Basophils (%) (Auto) 1, Neutrophils # (Auto) 9.0, Lymphocytes # (Auto) 3.3, Monocytes # (Auto) 0.7, Eosinophils # (Auto) 0.2, Basophils # (Auto) 0.1, Sodium Level 136, Potassium Level 3.8, Chloride Level 106, Carbon Dioxide Level 19, Anion Gap 11, Blood Urea Nitrogen 16, Creatinine 0.80, Estimat Glomerular Filtration Rate > 60, BUN/Creat inine Ratio 20, Glucose Level 184, Calcium Level 9.2, Phosphorus Level 2.2, Magnesium Level 1.8 12/29/19 04:31: Glucometer 188 12/29/19 05:24: Glucometer 125 12/29/19 06:28: Glucometer 90 12/29/19 10:58: Glucometer 140 12/29/19 15:59: Glucometer 205 12/29/19 19:53: Glucometer 152 12/30/19 00:10: Glucometer 328 12/30/19 03:15: White Blood Count 20.4, Red Blood Count 3.98, Hemoglobin 12.0, Hematocrit 35, Mean Corpuscular Volume 87, Mean Corpuscular Hemoglobin 30, Mean Corpuscular Hemoglobin Concent 35, Red Cell Distribution Width 13.0, Platelet Count 339, Mean Platelet Volume 9.7, Neutrophils (%) (Auto) 44, Lymphocytes (%) (Auto) 47, Monocytes (%) (Auto) 6, Eosinophils (%) (Auto) 3, Basophils (%) (Auto) 0, Neutrophils # (Auto) 9.1, Lymphocytes # (Auto) 9.6, Monocytes # (Auto) 1.2, Eosinophils # (Auto) 0.5, Basophils # (Auto) 0.1, Sodium Level 142, Potassium Level 2.7, Chloride Level 111, Carbon Dioxide Level 21, Anion Gap 10, Blood Urea Nitrogen 14, Creatinine 0.85, Estimat Glomerular Filtration Rate > 60, BUN/Creatinine Ratio 16, Glucose Level 10, Calcium Level 8.8, Phosphorus Level 3.3, Magnesium Level 1.7 12/30/19 04:00: Sodium Level 139, Potassium Level 2.8, Chloride Level 110, Carbon Dioxide Level 21, Anion Gap 8, Blood Urea Nitrogen 14, Creatinine 0.84, Estimat Glomerular Filtration Rate > 60, BUN/Creatinine Ratio 17, Glucose Level 188, Calcium Level 8.3 12/30/19 04:01: Glucometer 175 12/30/19 04:04: Glucometer 246 12/30/19 04:24: Glucometer 123 12/30/19 04:45: Blood Gas Puncture Site LEFT RADIAL, Blood Gas Patient Temperature 35.2, Arterial Blood pH 7.39, Arterial Blood Partial Pressure CO2 37, Arterial Blood Partial Pressure O2 97, Arterial Blood HCO3 22, Arterial Blood Total CO2 23.2, Arterial Blood Oxygen Saturation 96, Arterial Blood Base Excess -2.6, Antonio Test YES-POS, Blood Gas Ventilator Setting NO, Blood Gas Inspired Oxygen ROOM AIR 12/30/19 04:48: Glucometer 91 12/30/19 05:24: Glucometer 181 12/30/19 05:53: Glucometer 188 12/30/19 06:00: Urine Color YELLOW, Urine Clarity CLOUDY, Urine pH 5.5, Urine Specific [place] 1.025, Urine Protein 3+, Urine Glucose (UA) 1+, Urine Ketones NEGATIVE, Urine Nitrite NEGATIVE, Urine Bilirubin NEGATIVE, Urine Urobilinogen 0.2, Urine Leukocyte Esterase 2+, Urine RBC (Auto) 3+, Urine RBC 10-25, Urine WBC TNTC, Urine Crystals NONE, Urine Bacteria LARGE, Urine Casts NONE, Urine Mucus MODER ATE, Urine Culture Indicated YES, Urine Opiates Screen NEGATIVE, Urine Oxycodone Screen NEGATIVE, Urine Methadone Screen NEGATIVE, Urine Propoxyphene Screen NEGATIVE, Urine Barbiturates Screen NEGATIVE, Ur Tricyclic Antidepressants Screen NEGATIVE, Urine Phencyclidine Screen NEGATIVE, Urine Amphetamines Screen NEGATIVE, Urine Methamphetamines Screen NEGATIVE, Urine Benzodiazepines Screen NEGATIVE, Urine Cocaine Screen NEGATIVE, Urine Cannabinoids Screen NEGATIVE 12/30/19 06:30: Free Triiodothyronine 2.01, Gabapentin Level [Pending] 12/30/19 06:36: Sodium Level 139, Potassium Level 3.3, Chloride Level 112, Carbon Dioxide Level 20, Anion Gap 7, Blood Urea Nitrogen 14, Creatinine 0.82, Estimat Glomerular Filtration Rate > 60, BUN/Creatinine Ratio 17, Glucose Level 181, Lactic Acid Level 0.92, Calcium Level 8.1, Corrected Calcium 8.9, Phosphorus Level 4.5, Magnesium Level 1.7, Total Bilirubin 0.2, Aspartate Amino Transf (AST/SGOT) 11, Alanine Aminotransferase (ALT/SGPT) 10, Alkaline Phosphatase 63, Troponin I < 0.028, Total Protein 5.4, Albumin 3.0, Thyroid Stimulating Hormone (TSH) 0.56, Free Thyroxine 0.86 12/30/19 06:49: Glucometer 170 12/30/19 07:25: Blood Gas Puncture Site LT RAD, Blood Gas Patient Temperature 34.5, Arterial Blood pH 7.35, Arterial Blood Partial Pressure CO2 36, Arterial Blood Partial Pressure O2 79, Arterial Blood HCO3 20, Arterial Blood Total CO2 21.6, Arterial Blood Oxygen Saturation 96, Arterial Blood Base Excess -4.7, Antonio Test YES-POS, Blood Gas Ventilator Setting NO, Blood Gas Inspired Oxygen ROOM AIR, Ammonia 22, Triglycerides Level 119 12/30/19 09:03: Glucometer 175 12/30/19 09:08: Blood Gas Puncture Site LT RAD, Blood Gas Patient Temperature 35.9, Arterial Blood pH 7.36, Arterial Blood Partial Pressure CO2 36, Arterial Blood Partial Pressure O2 51, Arterial Blood HCO3 20, Arterial Blood Total CO2 21.6, Arterial Blood Oxygen Saturation 85, Arterial Blood Base Excess -4.3, Antonio Test YES-POS, Blood Gas Ventilator Setting YES, Blood Gas Inspired Oxygen 60% 12/30/19 10:49: Glucometer 259 12/30/19 11:52: Glucometer 296 12/30/19 12:48: Glucometer 278 12/30/19 13:49: Glucometer 252 12/30/19 15:02: Glucometer 170 12/30/19 15:26: Potassium Level 3.9 12/30/19 15:54: Glucometer 141 12/30/19 16:55: Glucometer 130 12/30/19 18:04: Glucometer 134 12/30/19 19:09: Glucometer 153 12/30/19 20:59: Glucometer 165 12/30/19 22:41: Glucometer 251 12/31/19 00:04: Glucometer 232 12/31/19 01:32: Glucometer 221 12/31/19 03:00: White Blood Count 11.6, Red Blood Count 3.32, Hemoglobin 10.1, Hematocrit 30, Mean Corpuscular Volume 91, Mean Corpuscular Hemoglobin 30, Mean Corpuscular Hemoglobin Concent 34, Red Cell Distribution Width 13.2, Platelet Count 202, Mean Platelet Volume 10.3, Neutrophils (%) (Auto) 69, Lymphocytes (%) (Auto) 24, Monocytes (%) (Auto) 3, Eosinophils (%) (Auto) 4, Basophils (%) (Auto) 1, Neutrophils # (Auto) 8.0, Lymphocytes # (Auto) 2.8, Monocytes # (Auto) 0.4, Eosinophils # (Auto) 0.4, Basophils # (Auto) 0.1, Blood Gas Puncture Site RIGHT RADIAL, Blood Gas Patient Temperature 37.0, Arterial Blood pH 7.44, Arterial Blood Partial Pressure CO2 25, Arterial Blood Partial Pressure O2 76, Arterial Blood HCO3 18, Arterial Blood Total CO2 17.3, Arterial Blood Oxygen Saturation 96, Arterial Blood Base Excess -6.8, Antonio Test YES-POS, Blood Gas Ventilator Setting YES, Blood Gas Inspired Oxygen 21%, Sodium Level 144, Potassium Level 3.6, Chloride Level 120, Carbon Dioxide Level 16, Anion Gap 8, Blood Urea Nitrogen 9, Creatinine 0.82, Estimat Glomerular Filtration Rate > 60, BUN/Creatinine Ratio 11, Glucose Level 240, Calcium Level 7.9, Phosphorus Level 3.0, Magnesium Level 1.5 12/31/19 05:59: Glucometer 250 12/31/19 13:01: Glucometer 290 12/31/19 15:46: Glucometer 207 12/31/19 16:33: Glucometer 139 12/31/19 17:35: Glucometer 243 12/31/19 20:19: Glucometer 306 12/31/19 23:31: Glucometer 253 01/01/20 03:13: White Blood Count 8.7, Red Blood Count 3.18, Hemoglobin 9.5, Hematocrit 29, Mean Corpuscular Volume 90, Mean Corpuscular Hemoglobin 30, Mean Corpuscular H emoglobin Concent 33, Red Cell Distribution Width 13.2, Platelet Count 202, Mean Platelet Volume 9.8, Neutrophils (%) (Auto) 52, Lymphocytes (%) (Auto) 35, Monocytes (%) (Auto) 5, Eosinophils (%) (Auto) 7, Basophils (%) (Auto) 1, Neutrophils # (Auto) 4.5, Lymphocytes # (Auto) 3.0, Monocytes # (Auto) 0.5, Eosinophils # (Auto) 0.6, Basophils # (Auto) 0.1, Sodium Level 143, Potassium Level 3.0, Chloride Level 114, Carbon Dioxide Level 20, Anion Gap 9, Blood Urea Nitrogen 5, Creatinine 0.78, Estimat Glomerular Filtration Rate > 60, BUN/Creatinine Ratio 6, Glucose Level 123, Calcium Level 8.2, Phosphorus Level 3.4, Magnesium Level 1.6, Triglycerides Level 110 01/01/20 06:06: Vancomycin Level Trough 16.9 01/01/20 12:42: Glucometer 436 01/01/20 18:01: Glucometer 215 01/01/20 23:39: Glucometer 305 01/02/20 05:20: Urine Color YELLOW, Urine Clarity CLEAR, Urine pH 6.5, Urine Specific [place] 1.020, Urine Protein 3+, Urine Glucose (UA) NEGATIVE, Urine Ketones NEGATIVE, Urine Nitrite NEGATIVE, Urine Bilirubin NEGATIVE, Urine Urobilinogen 0.2, Urine Leukocyte Esterase NEGATIVE, Urine RBC (Auto) NEGATIVE, Urine RBC NONE, Urine WBC RARE, Urine Squamous Epithelial Cells 0-2, Urine Crystals NONE, Urine Bacteria TRACE, Urine Casts NONE, Urine Mucus NEGATIVE, Urine Culture Indicated YES 01/02/20 05:46: Glucometer 229 01/02/20 05:50: White Blood Count 9.5, Red Blood Count 3.55, Hemoglobin 10.7, Hematocrit 31, Mean Corpuscular Volume 88, Mean Corpuscular Hemoglobin 30, Mean Corpuscular Hemoglobin Concent 34, Red Cell Distribution Width 12.7, Platelet Count 224, Mean Platelet Volume 10.1, Neutrophils (%) (Auto) 48, Lymphocytes (%) (Auto) 40, Monocytes (%) (Auto) 5, Eosinophils (%) (Auto) 7, Basophils (%) (Auto) 1, Neutrophils # (Auto) 4.6, Lymphocytes # (Auto) 3.8, Monocytes # (Auto) 0.4, Eosinophils # (Auto) 0.6, Basophils # (Auto) 0.1, Sodium Level 139, Potassium Level 3.2, Chloride Level 108, Carbon Dioxide Level 21, Anion Gap 10, Blood Urea Nitrogen 7, Creatinine 0.76, Estimat Glomerular Filtration Rate > 60, BUN/Creatinine Ratio 9, Glucose Level 230, Calcium Level 8.4, Corrected Calcium 9.1, Phosphorus Level 3.5, Magnesium Level 1.6, Total Bilirubin 0.3, Aspartate Amino Transf (AST/SGOT) 9, Alanine Aminotransferase (ALT/SGPT) 12, Alkaline Phosphatase 76, Total Protein 5.6, Albumin 3.1 01/02/20 13:12: Glucometer 371 Discharge Home Medications: Active Scripts Active Amoxicillin 500 Mg Capsule 500 Mg PO TID 7 Days Atorvastatin Calcium 10 Mg Tablet 20 Mg PO HS 30 Days Amlodipine Besylate 5 Mg Tablet 10 Mg PO DAILY 30 Days Metoprolol Succinate 25 Mg Tab.er.24h 25 Mg PO DAILY 30 Days Metoprolol Succinate 50 Mg Tab.er.24h 50 Mg PO DAILY 30 Days Reported Promethazine Tablet (Promethazine HCl) 25 Mg Tablet 25 Mg PO Q6H PRN Omeprazole 20 Mg Capsule.dr 20 Mg PO DAILY Aspirin EC (Aspirin) 81 Mg Tablet.dr 81 Mg PO DAILY Tylenol (Acetaminophen) 325 Mg Tablet 650 Mg PO Q8H PRN TAKES 2 (325MG) TABLETS Lisinopril 10 Mg Tablet 10 Mg PO DAILY Humalog Kwikpen (Insulin Lispro) 100 Unit/1 Ml Insuln.pen Units SQ TIDAC STATES HER METER TELL HER HOW MUCH TO ADMINISTER SCRIPT STATES 1 UNIT SUBQ FOR EVERY 4 CARBS WITH MEALS PLUS CORRECTION Gabapentin 800 Mg Tablet 1,600 Mg PO HS TAKES 2 (800MG) TABLETS Instructions to patient/family Please see electronic discharge instructions given to patient. Clinical Quality Measures DVT/VTE Risk/Contraindication: Risk Factor Score Per Nursin RFS Level Per Nursing on Admit: 2=Moderate CINDY CALABRESE DO Jan 03, 2020 06:43
--- NOTE | 2020-01-04 05:15 | Physician Query Clarification ---
PQ-Present on Admission Admission/Discharge Admission Date: Dec 27, 2019 at 21:25 Discharge Date: Jan 02, 2020 at 14:00 Question: Sepsis was started documenting in [Pulmonary progress note on 12/30/2019 and Cardiology progress note on 12/31/2019 ]. Can you specify if this condition was present on admission? Please document a response in Progress Note or Discharge Summary. 1. Yes - Condition was present at the time of inpatient admission. 2. No - Condition was not present at the time of inpatient admission and it developed during the inpatient stay. 3. W - Provider is unable to clinically determine whether condition was present on admission or not. 4. Other [please specify] PHYSICIAN RESPONSE Condition was Present on Admit: Yes Please remember a lack of response to the above will prompt a phone page by CDI/Coding staff. In responding to this query, please exercise your independent professional judgment. The purpose of this communication is to more accurately reflect the complexity of your patients condition. The fact that a question is asked does not imply that any particular answer is desired or expected. Thank you for your timely response to this clarification. Requestors name: [Adelajasmine ] Phone # [[phone] ] THIS PHYSICIAN QUERY FORM IS A PERMANENT PART OF THE MEDICAL RECORD SHE SALDIVAR Jan 04, 2020 05:15 JB SPENCER Jan 11, 2020 06:58 CINDY CALABRESE DO Jan 11, 2020 07:42
== END 2020-01-02 14:00 | disposition home or self-care (01) | DRG 871 ==
LOC: EDUNIT# 19:24 → ER 19:26 → ICU 21:25 → OBSVTOIN 21:25 → ICU 01-01 12:14 → 4TH 01-01 14:28
PROVIDERS: ADMIT Family Medicine; ATTEND Family Medicine
PROC: 5A1935Z Respiratory Ventilation, Less than 24 Consecutive Hours (ICD-10-PCS; principal; 2019-12-30)
PROC: 0BH17EZ Insertion of Endotracheal Airway into Trachea, Via Natural or Artificial Opening (ICD-10-PCS; 2019-12-30)
DX: A41.9 Sepsis, unspecified organism (principal); R65.21 Severe sepsis with septic shock; J96.00 Acute respiratory failure, unspecified whether with hypoxia or hypercapnia; G93.41 Metabolic encephalopathy; N39.0 Urinary tract infection, site not specified; I16.0 Hypertensive urgency; R00.1 Bradycardia, unspecified; E11.649 Type 2 diabetes mellitus with hypoglycemia without coma; E11.43 Type 2 diabetes mellitus with diabetic autonomic (poly)neuropathy; I12.9 Hypertensive chronic kidney disease with stage 1 through stage 4 chronic kidney disease, or unspecified chronic kidney disease; N18.9 Chronic kidney disease, unspecified; I25.10 Atherosclerotic heart disease of native coronary artery without angina pectoris; G47.33 Obstructive sleep apnea (adult) (pediatric); E78.00 Pure hypercholesterolemia, unspecified; F44.4 Conversion disorder with motor symptom or deficit; F41.9 Anxiety disorder, unspecified; E87.6 Hypokalemia; K21.9 Gastro-esophageal reflux disease without esophagitis; L40.50 Arthropathic psoriasis, unspecified; G43.909 Migraine, unspecified, not intractable, without status migrainosus; M79.7 Fibromyalgia; K58.9 Irritable bowel syndrome, unspecified; R63.4 Abnormal weight loss; Z95.5 Presence of coronary angioplasty implant and graft; Z91.19 Patient's noncompliance with other medical treatment and regimen; Z87.891 Personal history of nicotine dependence; Z86.718 Personal history of other venous thrombosis and embolism; Z79.4 Long term (current) use of insulin; Z97.8 Presence of other specified devices
CPT/HCPCS: 36415; 36600; 51702; 70450; 70496; 71045; 80048; 80053; 80061; 80171; 80202; 80306; 81000; 82140; 82805; 82962; 83605; 83735; 84100; 84132; 84439; 84443; 84478; 84481; 84484; 85025; 85379; 85610; 85730; 87040; 87070; 87077; 87081; 87088; 87186; 87205; 87804; 93005; 93041; 93306; 94002; 94003; 94799; 96374; G0378

== ENCOUNTER → 2020-01-08 | Outpatient (CLI) | payer MEDICARE, OTHER ==
[~2020-01-08] VITALS: Ht 149.9 cm
[~2020-01-08] MED LIST changes: +ATOR10TA66 PO; +MTP25TSR PO; +OMEP-280 PO; -OMEP20CA18 PO
[2020-01-08 12:45] VITALS: BP 150/68
== END ==
LOC: SDC 12:30
PROVIDERS: ATTEND Family Medicine
DX: R73.9 Hyperglycemia, unspecified (principal)
CPT/HCPCS: 82962

== ENCOUNTER → 2020-01-09 | Outpatient (CLI) | payer MEDICARE, OTHER ==
--- NOTE | 2020-01-09 14:58 | Diagnostic Imaging Report ---
PROCEDURE: MRI left upper extremity without contrast. TECHNIQUE: Multiplanar, multisequence non contrast-enhanced MRI of the left upper extremity was accomplished. INDICATION: Left shoulder pain and limited range of motion. COMPARISON: None. FINDINGS: No acute fracture or dislocation is seen in the left shoulder. There is motion artifact on multiple sequences. No joint effusion is seen. There are mild degenerative changes in the acromioclavicular joint. The supraspinatus tendon demonstrates mild tendinosis and a small high-grade partial thickness tear at the articular surface measuring 6 mm in width involving the posterior fibers. The infraspinatus tendon demonstrates low-grade partial-thickness tearing of the insertional fibers. The teres minor tendon appears intact. The subscapularis tendon appears intact. There is moderate tendinosis of the intra-articular long head of the biceps tendon. The glenoid labrum is suboptimally evaluated without intra-articular contrast. No para labral cyst is seen. The acromion has a curved undersurface without hooking. The coracoclavicular and coracoacromial ligaments are intact. The soft tissues about the left shoulder demonstrate no acute abnormality. No lymphadenopathy is seen. IMPRESSION: 1. Small high-grade partial thickness tear of the distal left supraspinatus tendon. Low-grade partial-thickness tearing of the infraspinatus tendon. 2. Moderate tendinosis of the long head of the biceps tendon. 3. Mild degenerative changes in the acromioclavicular joint. Dictated by: Dictated on workstation # [id number]
== END ==
LOC: RAD 12:50
PROVIDERS: ATTEND Family Medicine
DX: S43.492A Other sprain of left shoulder joint, initial encounter (principal); M19.012 Primary osteoarthritis, left shoulder; M75.22 Bicipital tendinitis, left shoulder
CPT/HCPCS: 73221

== ENCOUNTER 2020-01-29 00:16 | Emergency (ER) | payer MEDICARE, OTHER ==
[~2020-01-29] VITALS: Ht 150 cm; Wt 59.0 kg
[~2020-01-29 00:16] MED LIST changes: -OMEP-280 PO; +OMEP20CA18 PO
[2020-01-29] MEDS ORDERED: TRAM50TA3 (00:30)
[2020-01-29 00:31] LABS: BASOPHILS # (AUTO) 0.1 10^3/uL (0.0-0.1); BASOPHILS % (AUTO) 1 % (0-10); EOSINOPHILS # (AUTO) 0.3 10^3/uL (0.0-0.3); EOSINOPHILS % (AUTO) 4 % (0-10); HEMATOCRIT 33 % (35-52); LYMPHOCYTES % (AUTO) 37 % (12-44); MEAN CORPUSCULAR HEMOGLOBIN 31 PG (25-34); MEAN CORPUSCULAR HGB CONC 34 G/DL (32-36); MEAN CORPUSCULAR VOLUME 91 FL (80-99); MEAN PLATELET VOLUME 10.5 FL (7.4-10.4); MONOCYTES # (AUTO) 0.6 X 10^3 (0.0-1.0); MONOCYTES % (AUTO) 7 % (0-12); NEUTROPHILS # (AUTO) 4.2 X 10^3 (1.8-7.8); NEUTROPHILS % (AUTO) 51 % (42-75); PLATELET COUNT 206 10^3/uL (130-400); RED CELL DISTRIBUTION WIDTH 14.6 % (10.0-14.5); WHITE BLOOD COUNT 8.2 10^3/uL (4.3-11.0)
[2020-01-29 00:43] LABS: BILIRUBIN,URINE NEGATIVE (NEGATIVE); CLARITY,URINE CLEAR; COLOR,URINE YELLOW; GLUCOSE, URINE (UA) 3+ (NEGATIVE); KETONES,URINE NEGATIVE (NEGATIVE); LEUKOCYTE ESTERASE ,URINE TRACE (NEGATIVE); NITRITE,URINE NEGATIVE (NEGATIVE); PROTEIN,URINE 2+ (NEGATIVE)
[2020-01-29 00:51] LABS: ALBUMIN 3.4 GM/DL (3.2-4.5); BILIRUBIN,TOTAL 0.2 MG/DL (0.1-1.0); CALCIUM 8.4 MG/DL (8.5-10.1); CREATININE SERUM 1.05 MG/DL (0.60-1.30); MAGNESIUM 1.6 MG/DL (1.6-2.4); POTASSIUM 3.8 MMOL/L (3.6-5.0); TOTAL PROTEIN 5.9 GM/DL (6.4-8.2)
[2020-01-29 00:53] LABS: BACTERIA,URINE TRACE /HPF; SQUAMOUS EPITHELIAL CELL,UR 0-2 /HPF; WBC,URINE 0-2 /HPF
[2020-01-29 01:01] LABS: AMPHETAMINE SCREEN, URINE NEGATIVE (NEGATIVE); BARBITURATE SCREEN URINE NEGATIVE (NEGATIVE); BENZODIAZEPINES SCREEN URINE NEGATIVE (NEGATIVE); CANNABINOID SCREEN, URINE NEGATIVE (NEGATIVE); COCAINE SCREEN URINE NEGATIVE (NEGATIVE); METHADONE STAT NEGATIVE (NEGATIVE); METHAMPHETAMINE SCREEN URINE S NEGATIVE (NEGATIVE); OPIATE SCREEN URINE NEGATIVE (NEGATIVE); OXYCODONE STAT NEGATIVE (NEGATIVE); PROPOXYPHENE STAT NEGATIVE (NEGATIVE); TRICYCLIC ANTIDEPRESSANTS SCRE NEGATIVE (NEGATIVE)
--- NOTE | 2020-01-29 01:53 | ED Neurological Problem ---
General Chief Complaint: Altered Mental Status Stated Complaint: ALT MENTAL STATUS Nursing Triage Note: brought in by [facility] for altered mentals status Nursing Sepsis Screen: No Definite Risk Source: patient Exam Limitations: no limitations History of Present Illness Date Seen by Provider: Jan 29, 2020 Time Seen by Provider: 00:13 Initial Comments This 59-year-old woman presents to the emergency room via EMS with altered mental status. She was found in bed by her roommates not responding appropriately. EMS performed sternal rub on her during initial assessment and were able to get some response. She was maintaining her airway and breathing normally on her own. She was noted to be hyperglycemic with a blood sugar of 396 for EMS. The last time her roommates saw her normal was at 19:00. IV f luids were initiated by EMS. Patient is in possession of an unmarked bottle with 3 tablets in it. She states these are tizanidine tablets belonging to her sister. She claims to have not taken any. According to EMS her speech was mumbled and slurred on scene. Patient appears globally weak. Allergies and Home Medications Allergies Coded Allergies: ketorolac (Verified Allergy, Severe, ANAPHYLAXIS, PT TAKES ASA AT HOME, 03/06/19) ondansetron (Verified Allergy, Intermediate, RASH, 03/06/19) RASH/ HIVES scopolamine (Verified Allergy, Mild, Rash, 03/21/19) exenatide (Verified Allergy, Unknown, NAUSEA, 03/06/19) NON STOP VOMITING latex (Verified Allergy, Unknown, RASH, 03/06/19) metoclopramide (Verified Allergy, Unknown, RESTLESS LEGS, 03/06/19) erythromycin base (Verified Adverse Reaction, Unknown, 03/21/19) Home Medications Amlodipine Besylate 5 Mg Tablet, 10 MG PO DAILY Prescribed by: TALITA LINDER on 01/02/20 1128 Aspirin 81 Mg Tablet.dr, 81 MG PO DAILY, (Reported) Atorvastatin Calcium 10 Mg Tablet, 20 MG PO HS Prescribed by: TALITA LINDER on 01/02/20 112 Gabapentin 800 Mg Tablet, 1,600 MG PO HS, (Reported) TAKES 2 (800MG) TABLETS Insulin Lispro 100 Unit/1 Ml Insuln.pen, UNITS SQ TIDAC, (Reported) STATES HER METER TELL HER HOW MUCH TO ADMINISTER SCRIPT STATES 1 UNIT SUBQ FOR EVERY 4 CARBS WITH MEALS PLUS CORRECTION Lisinopril 10 Mg Tablet, 10 MG PO DAILY, (Reported) Metoprolol Succinate 50 Mg Tab.er.24h, 50 MG PO DAILY Prescribed by: TALITA LINDER on 01/02/20 1128 Omeprazole 20 Mg Capsule.dr, 20 MG PO DAILY, (Reported) Patient Home Medication List Home Medication List Reviewed: Yes Review of Systems Review of Systems Constitutional: see HPI Eyes: No Symptoms Reported Ears, Nose, Mouth, Throat: no symptoms reported Respiratory: no symptoms reported Cardiovascular: no symptoms reported Gastrointestinal: no symptoms reported Genitourinary: no symptoms reported : No Musculoskeletal: see HPI Skin: no symptoms reported Psychiatric/Neurological: See HPI Endocrine: No Symptoms Reported Hematologic/Lymphatic: No Symptoms Reported Past Fxehfxx-Tzfvcm-Nakxln Hx Past Med/Social Hx: Reviewed Nursing Past Med/Soc Hx Patient Social History Alcohol Use: Denies Use Number of Drinks Today: Alcohol Beverage of Choice: Wine Recreational Drug Use: Yes Drug of Choice: NARCOTIC ABUSE Smoking Status: Former Smoker Type Used: Cigars, Cigarettes Former Smoker, Quit: Nov 10, 2017 2nd Hand Smoke Exposure: No Recent Foreign Travel: No Contact w/Someone Who Travel: No Recent Infectious Disease Expo: No Recent Hopitalizations: Yes Physical Abuse: No Sexual Abuse: No Mistreated: No Fear: No Immunizations Up To Date Tetanus Booster (TDap): Unknown PED Vaccines UTD: No Date of Pneumonia Vaccine: Nov 06, 2019 Date of Influenza Vaccine: Nov 22, 2019 Seasonal Allergies Seasonal Allergies: Yes Past Medical History Surgeries: Yes (LITHOTRIPSY;LUMBAR SURGERY X 4;BMT'S;EGD WITH ESOPHAGEAL DIL ATION;) Cardiac, Coronary Stent, Ear Surgery, Gallbladder, Orthopedic, Renal Respiratory: Yes Chronic Bronchitis, Sleep Apnea Currently Using CPAP: No Currently Using BIPAP: No Cardiac: Yes Chronic Edema/Swelling, Coronary Artery Disease, Deep Vein Thrombosis, High Cholesterol, Hypertension Neurological: Yes Headaches /Migraines, Neuropathy : No 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 Disorders: No 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 Disorders: Denies 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 Sexually Transmitted Disease: No HIV/AIDS: No Genitourinary: Yes Bladder Infection, Kidney Stones, Renal Failure Gastrointestinal: Yes Gastroesophageal Reflux, Diverticulosis, Esophagitis, Irritable Bowel Musculoskeletal: Yes Degenerate Disk Disease, Fibromyalgia, Chronic Back Pain Endocrine: Yes Diabetes, Insulin dep HEENT: Yes Chronic Ear Infection Loss of Vision: Bilateral Hearing Impairment: Hard of Hearing Cancer: No Psychosocial: Yes Anxiety Integumentary: Yes Psoriasis Blood Disorders: No Adverse Reaction/Blood Tranf: No Family Medical History Cancer of mouth 19 FATHER ( of esophogeal cancer.) Cardiovascular disease 19 MOTHER G8 BROTHER Completed stroke 19 FATHER G8 BROTHER Diabetes mellitus G8 BROTHER FH: lung cancer 19 MOTHER Hypertension 19 FATHER Kidney disease 19 FATHER Myocardial infarction 19 MOTHER G8 BROTHER Respiratory disorder No Family History of: AIDS CAD Over 55 Years Old, CVA, Diabetes, GI Disease, Renal Disease Physical Exam Vital Signs Vital Signs - First Documented 01/29/20 00:18 Temp 36.7 Pulse 79 Resp 18 B/P (MAP) 163/90 (114) Pulse Ox 98 O2 Delivery Room Air Capillary Refill : Less Than 3 Seconds Height, Weight, BMI Height: 5'1.00" Weight: 122lbs. 1.0oz. 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, no motor/sensory deficits, alert, normal mood/affect, oriented x 3 Crainal Nerves: normal hearing, normal speech, PERRL Motor/Sensory: no motor deficit, no sensory deficit Skin: normal color, warm/dry Procedures/Interventions Date of ETT Placement: Dec 30, 2019 Time of ETT Placement: 075 Progress/Results/Core Measures Results/Orders Lab Results Laboratory Tests Test 01/29/20 00:22 01/29/20 00:27 01/29/20 00:37 Range/Units White Blood Count 8.2 4.3-11.0 10^3/uL Red Blood Count 3.59 L 4.35-5.85 10^6/uL Hemoglobin 11.0 L 11.5-16.0 G/DL Hematocrit 33 L 35-52 % Mean Corpuscular Volume 91 80-99 FL Mean Corpuscular Hemoglobin 31 25-34 PG Mean Corpuscular Hemoglobin Concent 34 32-36 G/DL Red Cell Distribution Width 14.6 H 10.0-14.5 % Platelet Count 206 130-400 10^3/uL Mean Platelet Volume 10.5 H 7.4-10.4 FL Neutrophils (%) (Auto) 51 42-75 % Lymphocytes (%) (Auto) 37 12-44 % Monocytes (%) (Auto) 7 0-12 % Eosinophils (%) (Auto) 4 0-10 % Basophils (%) (Auto) 1 0-10 % Neutrophils # (Auto) 4.2 1.8-7.8 X 10^3 Lymphocytes # (Auto) 3.0 1.0-4.0 X 10^3 Monocytes # (Auto) 0.6 0.0-1.0 X 10^3 Eosinophils # (Auto) 0.3 0.0-0.3 10^3/uL Basophils # (Auto) 0.1 0.0-0.1 10^3/uL Sodium Level 140 135-145 MMOL/L Potassium Level 3.8 3.6-5.0 MMOL/L Chloride Level 111 H 98-107 MMOL/L Carbon Dioxide Level 20 L 21-32 MMOL/L Anion Gap 9 5-14 MMOL/L Blood Urea Nitrogen 19 H 7-18 MG/DL Creatinine 1.05 0.60-1.30 MG/DL Estimat Glomerular Filtration Rate 53 BUN/Creatinine Ratio 18 Glucose Level 343 H 70-105 MG/DL Calcium Level 8.4 L 8.5-10.1 MG/DL Corrected Calcium 8.9 8.5-10.1 MG/DL Magnesium Level 1.6 1.6-2.4 MG/DL Total Bilirubin 0.2 0.1-1.0 MG/DL Aspartate Amino Transf (AST/SGOT) 12 5-34 U/L Alanine Aminotransferase (ALT/SGPT) 11 0-55 U/L Alkaline Phosphatase 78 40-136 U/L C-Reactive Protein High Sensitivity 0.16 0.00-0.50 MG/DL Total Protein 5.9 L 6.4-8.2 GM/DL Albumin 3.4 3.2-4.5 GM/DL Glucometer 313 H 70-110 MG/DL Urine Color YELLOW Urine Clarity CLEAR Urine pH 6.0 5-9 Urine Specific [place] 1.020 1.016-1.022 Urine Protein 2+ H NEGATIVE Urine Glucose (UA) 3+ H NEGATIVE Urine Ketones NEGATIVE NEGATIVE Urine Nitrite NEGATIVE NEGATIVE Urine Bilirubin NEGATIVE NEGATIVE Urine Urobilinogen 0.2 < = 1.0 MG/DL Urine Leukocyte Esterase TRACE H NEGATIVE Urine RBC (Auto) NEGATIVE NEGATIVE Urine RBC NONE /HPF Urine WBC 0-2 /HPF Urine Squamous Epithelial Cells 0-2 /HPF Urine Crystals NONE /LPF Urine Bacteria TRACE /HPF Urine Casts NONE /LPF Urine Mucus NEGATIVE /LPF Urine Culture Indicated NO Urine Opiates Screen NEGATIVE NEGATIVE Urine Oxycodone Screen NEGATIVE NEGATIVE Urine Methadone Screen NEGATIVE NEGATIVE Urine Propoxyphene Screen NEGATIVE NEGATIVE Urine Barbiturates Screen NEGATIVE NEGATIVE Ur Tricyclic Antidepressants Screen NEGATIVE NEGATIVE Urine Phencyclidine Screen NEGATIVE NEGATIVE Urine Amphetamines Screen NEGATIVE NEGATIVE Urine Methamphetamines Screen NEGATIVE NEGATIVE Urine Benzodiazepines Screen NEGATIVE NEGATIVE Urine Cocaine Screen NEGATIVE NEGATIVE Urine Cannabinoids Screen NEGATIVE NEGATIVE My Orders Orders - WARD MUNGUIA MD Ekg Tracing (01/29/20 00:24) Monitor-Rhythm Ecg Trace Only (01/29/20 00:24) Cbc With Automated Diff (01/29/20 00:24) Comprehensive Metabolic Panel (01/29/20 00:24) Hs C Reactive Protein (01/29/20 00:24) Drug Screen Stat (Urine) (01/29/20 00:24) Magnesium (01/29/20 00:24) Ua Culture If Indicated (01/29/20 00:24) Ibuprofen Tablet (Motrin Tablet) (01/29/20 02:00) Medications Given in ED Current Medications Medications Dose Ordered Sig/Jackie Route Start Time Stop Time Status Last Admin Dose Admin Ibuprofen 600 mg ONCE ONCE PO 01/29/20 02:00 01/29/20 02:01 DC 01/29/20 01:57 600 MG Vital Signs/I&O 01/29/20 01/29/20 00:18 01:59 Temp 36.7 36.8 Pulse 79 87 Resp 18 18 B/P (MAP) 163/90 (114) 177/88 Pulse Ox 98 95 O2 Delivery Room Air Room Air Blood Pressure Mean: 114 FSBG Bedside Testing Finger Stick Blood Glucose: 313 Progress Progress Note : Time: 07:48 Progress Note Patient was given a liter of IV fluid. Mental status rapidly corrected to normal. I suspect the altered mental status was secondary to medication effect. Patient's biggest concern was pain in her shoulder from chronic rotator cuff injury. She was given ibuprofen. Initial ECG Impression Date: Jan 29, 2020 Initial ECG Impression Time: 00:23 Initial ECG Rate: 78 Initial ECG Rhythm: Normal Sinus Initial ECG Intervals: Normal Initial ECG Impression: Normal Comment Normal sinus rhythm with no ST elevation or depression. No abnormal intervals or axis deviation. Departure Impression Primary Impression: Altered mental status Qualified Codes: R41.82 - Altered mental status, unspecified Additional Impressions: Chronic left shoulder pain Hyperglycemia Disposition: 01 HOME, SELF-CARE Condition: Improved Departure-Patient Inst. Decision time for Depature: 01:49 Referrals: CINDY CALABRESE DO (PCP/Family) Primary Care Physician Patient Instructions: Chronic Pain (DC) Add. Discharge Instructions: Drink plenty of sugar-free clear liquids. Monitor your blood sugars closely, preferably fasting in the morning and 2 hours after each meal. Review your blood sugars with your primary care provider. Follow-up with your primary care provider as soon as possible. Please call the office this morning to make arrangements. Please make arrangements for chronic pain management with your primary care provider. You may use tramadol as prescribed for pain. If well-tolerated, you may also use ibuprofen up to 600 mg every 6 hours as needed for short-term relief of pain. Do not take any prescription medications not prescribed to you. Return to care if you have worsening symptoms despite following these measures. All discharge instructions reviewed with patient and/or family. Voiced understanding. Copy Copies To 1: CINDY CALABRESE JOSHUA T MD Jan 29, 2020 01:53
[2020-01-29 01:59] VITALS: BP 177/88
[2020-01-29] MEDS ORDERED: IBUPROFEN TABLET 200 MG TAB PO ONE (02:00)
== END 2020-01-29 02:05 | disposition home or self-care (01) ==
LOC: EDUNIT# 00:16 → ER 00:18
DX: R41.82 Altered mental status, unspecified (principal); G89.29 Other chronic pain; M25.512 Pain in left shoulder; E11.65 Type 2 diabetes mellitus with hyperglycemia; E11.40 Type 2 diabetes mellitus with diabetic neuropathy, unspecified; I10 Essential (primary) hypertension; E78.00 Pure hypercholesterolemia, unspecified; I25.10 Atherosclerotic heart disease of native coronary artery without angina pectoris; K21.9 Gastro-esophageal reflux disease without esophagitis; Z88.6 Allergy status to analgesic agent; Z88.8 Allergy status to other drugs, medicaments and biological substances; Z91.040 Latex allergy status; Z88.1 Allergy status to other antibiotic agents; Z79.82 Long term (current) use of aspirin; Z79.4 Long term (current) use of insulin; Z87.891 Personal history of nicotine dependence; Z95.5 Presence of coronary angioplasty implant and graft; Z80.1 Family history of malignant neoplasm of trachea, bronchus and lung; Z82.49 Family history of ischemic heart disease and other diseases of the circulatory system; Z80.0 Family history of malignant neoplasm of digestive organs
CPT/HCPCS: 36415; 80053; 80306; 81000; 82962; 83735; 85025; 86141; 93005; 93041

== ENCOUNTER 2020-02-28 20:04 | Emergency (ER) | payer MEDICARE ==
[~2020-02-28] VITALS: Ht 162 cm; Wt 72.6 kg
[~2020-02-28 20:04] MED LIST changes: +TRAM50TA3
[2020-02-28 20:14] VITALS: BP 189/99
--- NOTE | 2020-02-28 20:28 | ED Chest Pain ---
General Stated Complaint: HIGH BLOOD PRESSURE Source: patient Exam Limitations: no limitations (LATANYA HOLLINGSWORTH) History of Present Illness Date Seen by Provider: Feb 28, 2020 Time Seen by Provider: 20:07 Initial Comments The patient arrives the ER by private conveyance from home with chief complaint of high blood pressure. When asked why she checked her blood pressure she says she was having chest pain at 1700. She says it lasted about 45 minutes and went away spontaneously. She took some Tylenol for a headache about the same time and had taken ibuprofen earlier in the day for the headache at noon. She has a history of chronic high blood pressure, headaches, a stent in her heart, smokes half a pack of cigarettes per day, hyperlipidemia and diabetes. She is known to Dr. Cobb who a few months ago placed a loop recorder in her chest. No history of atrial fibrillation atrial flutter. She says her headache has not really improved nor has her blood pressure. She called Dr. Calabrese and he instructed her to take an extra 50 mg of propranolol and if her blood pressure did not improved in a couple hours she was to come to the ER to be checked out. She did not mention to him that she was having chest pain at the time as her chest pain had spontaneously resolved.Gerd Hx. 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 (LATANYA HOLLINGSWORTH) Allergies and Home Medications Allergies Coded Allergies: ketorolac (Verified Allergy, Severe, ANAPHYLAXIS, PT TAKES ASA AT HOME, 03/06/19) ondansetron (Verified Allergy, Intermediate, RASH, 03/06/19) RASH/ HIVES scopolamine (Verified Allergy, Mild, Rash, 03/21/19) exenatide (Verified Allergy, Unknown, NAUSEA, 03/06/19) NON STOP VOMITING latex (Verified Allergy, Unknown, RASH, 03/06/19) metoclopramide (Verified Allergy, Unknown, RESTLESS LEGS, 03/06/19) erythromycin base (Verified Adverse Reaction, Unknown, 03/21/19) Home Medications Amlodipine Besylate 5 Mg Tablet, 10 MG PO DAILY Prescribed by: TALITA LINDER on 01/02/20 1128 Aspirin 81 Mg Tablet., 81 MG PO DAILY, (Reported) Atorvastatin Calcium 10 Mg Tablet, 20 MG PO HS Prescribed by: TALITA LINDER on 01/02/20 1128 Gabapentin 800 Mg Tablet, 1,600 MG PO HS, (Reported) TAKES 2 (800MG) TABLETS Insulin Lispro 100 Unit/1 Ml Insuln.pen, UNITS SQ TIDAC, (Reported) STATES HER METER TELL HER HOW MUCH TO ADMINISTER SCRIPT STATES 1 UNIT SUBQ FOR EVERY 4 CARBS WITH MEALS PLUS CORRECTION Lisinopril 10 Mg Tablet, 10 MG PO DAILY, (Reported) Metoprolol Succinate 50 Mg Tab.er.24h, 50 MG PO DAILY Prescribed by: TALITA LINDER on 01/02/201127 Omeprazole 20 Mg Capsule.dr, 20 MG PO DAILY, (Reported) Patient Home Medication List Home Medication List Reviewed: Yes (LATANYA HOLLINGSWORTH) Review of Systems Review of Systems Constitutional: No chills, No fever, No malaise EENTM: No Blurred Vision, No Double Vision, No Eye Pain Respiratory: Denies Cough, Denies Shortness of Air, Denies Stridor, Denies Wheezing Cardiovascular: See HPI, Chest Pain; Denies Edema, Denies Irregular Heart Rate, Denies Lightheadedness Gastrointestinal: Denies Constipated, Denies Diarrhea, Denies Nausea, Denies Poor Fluid Intake, Denies Vomiting Genitourinary: Denies Burning, Denies Discharge Musculoskeletal: No back pain, No joint pain Skin: No pruritus, No rash Psychiatric/Neurological: Headache; Denies Numbness, Denies Paresthesia, Denies Pre-Existing Deficit, Denies Seizure, Denies Tremors, Denies Weakness (LATANYA HOLLINGSWORTH) All Other Systems Reviewed Negative Unless Noted: Yes (LATANYA HOLLINGSWORTH) Past Lagcxky-Yrdhcj-Jnqido Hx Patient Social History Alcohol Use: Occasionally Uses Alcohol Beverage of Choice: Wine Recreational Drug Use: Yes Drug of Choice: NARCOTIC ABUSE Smoking Status: Current Everyday Smoker Type Used: Cigars, Cigarettes 2nd Hand Smoke Exposure: No Recent Hopitalizations: Yes (LATANYA HOLLINGSWORTH) Immunizations Up To Date Tetanus Booster (TDap): Unknown PED Vaccines UTD: No Date of Pneumonia Vaccine: Nov 06, 2019 Date of Influenza Vaccine: Nov 22, 2019 (LATANYA HOLLINGSWORTH) Seasonal Allergies Seasonal Allergies: Yes (LATANYA HOLLINGSWORTH) Past Medical History Surgeries: Yes (LITHOTRIPSY;LUMBAR SURGERY X 4;BMT'S;EGD WITH ESOPHAGEAL DILATION;) Cardiac, Coronary Stent, Ear Surgery, Gallbladder, Orthopedic, Renal Respiratory: Yes Chronic Bronchitis, Sleep Apnea Currently Using CPAP: No Currently Using BIPAP: No Cardiac: Yes Chronic Edema/Swelling, Coronary Artery Disease, Deep Vein Thrombosis, High Cholesterol, Hypertension Neurological: Yes Headaches /Migraines, Neuropathy 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 Disorders: No 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 Disorders: 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 Sexually Transmitted Disease: No HIV/AIDS: No Genitourinary: Yes Bladder Infection, Kidney Stones, Renal Failure Gastrointestinal: Yes Gastroesophageal Reflux, Diverticulosis, Esophagitis, Irritable Bowel Musculoskeletal: Yes Degenerate Disk Disease, Fibromyalgia, Chronic Back Pain Endocrine: Yes Diabetes, Insulin dep HEENT: Yes Chronic Ear Infection Loss of Vision: Bilateral Hearing Impairment: Hard of Hearing Cancer: No Psychosocial: Yes Anxiety Integumentary: Yes Psoriasis Blood Disorders: No Adverse Reaction/Blood Tranf: No (LATANYA HOLLINGSWORTH) Family Medical History Cancer of mouth 19 FATHER ( of esophogeal cancer.) Cardiovascular disease 19 MOTHER G8 BROTHER Completed stroke 19 FATHER G8 BROTHER Diabetes mellitus G8 BROTHER FH: lung cancer 19 MOTHER Hypertension 19 FATHER Kidney disease 19 FATHER Myocardial infarction 19 MOTHER G8 BROTHER Respiratory disorder No Family History of: AIDS CAD Over 55 Years Old, CVA, Diabetes, GI Disease, Renal Disease (LATANYA HOLLINGSWORTH) Physical Exam Vital Signs Vital Signs - First Documented 02/28/20 20:14 Temp 37.6 Pulse 84 Resp 19 B/P (MAP) 189/99 (129) Pulse Ox 95 O2 Delivery Room Air (JR MARIE APRN) Vital Signs Capillary Refill : (LATANYA HOLLINGSWORTH) Height, Weight, BMI Height: 5'1.00" Weight: 122lbs. 1.0oz. 55.139644gm; 26.00 BMI Method:Estimated General Appearance: No Apparent Distress, WD/WN HEENT: PERRL/EOMI, Pharynx Normal, Moist Mucous Membranes Neck: Full Range of Motion, Normal Inspection Respiratory: Chest Non Tender, Lungs Clear, Normal Breath Sounds, No Accessory Muscle Use, No Respiratory Distress Cardiovascular: Regular Rate, Rhythm, Normal Peripheral Pulses Gastrointestinal: Non Tender, Soft Extremity: Normal Capillary Refill, Normal Inspection, Non Tender, No Calf Tenderness, No Pedal Edema Neurologic/Psychiatric: Alert, Oriented x3 Skin: Normal Color, Warm/Dry (LATANYA HOLLINGSWORTH) Procedures/Interventions Date of ETT Placement: Dec 30, 2019 Time of ETT Placement: 0750 (LATANYA HOLLINGSWORTH) Progress/Results/Core Measures Results/Orders Lab Results Laboratory Tests Test 02/28/20 20:26 02/28/20 21:42 Range/Units White Blood Count 10.8 4.3-11.0 10^3/uL Red Blood Count 4.13 L 4.35-5.85 10^6/uL Hemoglobin 12.5 11.5-16.0 G/DL Hematocrit 38 35-52 % Mean Corpuscular Volume 92 80-99 FL Mean Corpuscular Hemoglobin 30 25-34 PG Mean Corpuscular Hemoglobin Concent 33 32-36 G/DL Red Cell Distribution Width 13.7 10.0-14.5 % Platelet Count 293 130-400 10^3/uL Mean Platelet Volume 9.8 7.4-10.4 FL Neutrophils (%) (Auto) 53 42-75 % Lymphocytes (%) (Auto) 37 12-44 % Monocytes (%) (Auto) 5 0-12 % Eosinophils (%) (Auto) 4 0-10 % Basophils (%) (Auto) 1 0-10 % Neutrophils # (Auto) 5.8 1.8-7.8 X 10^3 Lymphocytes # (Auto) 4.0 1.0-4.0 X 10^3 Monocytes # (Auto) 0.5 0.0-1.0 X 10^3 Eosinophils # (Auto) 0.5 H 0.0-0.3 10^3/uL Basophils # (Auto) 0.1 0.0-0.1 10^3/uL Prothrombin Time 12.1 L 12.2-14.7 SEC INR Comment 0.9 0.8-1.4 Activated Partial Thromboplast Time 25 24-35 SEC Sodium Level 141 135-145 MMOL/L Potassium Level 4.1 3.6-5.0 MMOL/L Chloride Level 112 H 98-107 MMOL/L Carbon Dioxide Level 16 L 21-32 MMOL/L Anion Gap 13 5-14 MMOL/L Blood Urea Nitrogen 17 7-18 MG/DL Creatinine 1.07 0.60-1.30 MG/DL Estimat Glomerular Filtration Rate 52 BUN/Creatinine Ratio 16 Glucose Level 88 70-105 MG/DL Calcium Level 8.8 8.5-10.1 MG/DL Corrected Calcium 8.7 8.5-10.1 MG/DL Magnesium Level 2.0 1.6-2.4 MG/DL Total Bilirubin 0.2 0.1-1.0 MG/DL Aspartate Amino Transf (AST/SGOT) 18 5-34 U/L Alanine Aminotransferase (ALT/SGPT) 16 0-55 U/L Alkaline Phosphatase 96 40-136 U/L Myoglobin 23.7 10.0-92.0 NG/ML Troponin I < 0.028 <0.028 NG/ML Total Protein 7.3 6.4-8.2 GM/DL Albumin 4.1 3.2-4.5 GM/DL Glucometer 138 H 70-110 MG/DL (JR MARIE APRN) Medications Given in ED Current Medications Medications Dose Ordered Sig/Jackie Route Start Time Stop Time Status Last Admin Dose Admin Aspirin 324 mg ONCE ONCE PO 02/28/20 20:30 02/28/20 20:31 DC 02/28/20 20:32 324 MG (JR MARIE APRN) Vital Signs/I&O 02/28/20 02/28/20 20:14 20:20 Temp 37.6 Pulse 84 Resp 19 B/P (MAP) 189/99 (129) Pulse Ox 95 O2 Delivery Room Air Room Air (JR MARIE APRN) Progress Progress Note #1: Time: 20:28 Progress Note The patient had 45 minutes of spontaneously terminating chest pain 3-1/2 hours ago. Plan to get a troponin, EKG, chest x-ray and give her some aspirin to chew and swallow. We'll watch her blood pressure for a short while but it does not come down on its own week and give her a dose of blood pressure medicine. She is asymptomatic at this time except for her headache. We could consider Phenergan since NSAIDs are not a good choice for her. If her creatinines okay we can try ibuprofen. Her headaches are chronic. Her blood pressure elevation is likely a symptom of her headache however we'll try and rule out coronary concerns. There was a mild delay obtaining the EKG because the patient did not share her Chest pain until the ROS portion of the initial interview. She states that this is what prompted her to check her blood pressure. The patient has had no period of immobility, recent surgery, history of blood clots or familial history of blood clots, tachycardia or hypoxia. Progress Note #2: Time: 23:00 Progress Note Shortly before we expect the second delta troponin to return from lab patient stated that she had waited long enough and decided she was going to go home AGAINST MEDICAL ADVICE. Initial labs are unremarkable. Her chest pain had resolved Prior to arrival. She's had no further deterioration of her symptoms since arrival. (LATANYA HOLLINGSWORTH) Initial ECG Impression Date: Feb 28, 2020 Initial ECG Impression Time: 20:24 Initial ECG Rate: 85 Initial ECG Rhythm: Normal Sinus Initial ECG Intervals: Normal Initial ECG Impression: Normal Initial ECG Comparisson: Unchanged Comment Normal sinus rhythm without ST elevation or depression. (LATANYA HOLLINGSWORTH) Diagnostic Imaging Diagonstic Imaging: Xray Plain Films/CT/US/NM/MRI: chest Reviewed: Reviewed by Me (LATANYA HOLLINGSWORTH) Departure Communication (Admissions) Loop recorder was interrogated at about 2130, Orlin Flannery with [employer] called to report that there were no episodes of tachycardia or bradycardia arrhythmias this month and certainly none today. (RJ MARIE APRN) Impression Primary Impression: Hypertension Qualified Codes: I10 - Essential (primary) hypertension Disposition: 07 AGAINST MEDICAL ADVICE Condition: Against Medical Advice Departure-Patient Inst. Decision time for Depature: 23:00 (LATANYA HOLLINGSWORTH) Decision time for Depature: 21:52 (JR MARIE APRN) Referrals: CINDY CALABRESE DO (PCP/Family) Primary Care Physician Patient Instructions: High Blood Pressure Emergencies Add. Discharge Instructions: 1. Return to ER for any concerns 2. Follow-up with your doctor next week LATANYA HOLLINGSWORTH Feb 28, 2020 20:28 JR MARIE APRN Feb 28, 2020 21:52
[2020-02-28] MEDS ORDERED: ASPIRIN 81 MG CHEW (CHILDREN'S ASA) PO ONE (20:30)
[2020-02-28 20:37] LABS: BASOPHILS # (AUTO) 0.1 10^3/uL (0.0-0.1); BASOPHILS % (AUTO) 1 % (0-10); EOSINOPHILS # (AUTO) 0.5 10^3/uL (0.0-0.3); EOSINOPHILS % (AUTO) 4 % (0-10); HEMATOCRIT 38 % (35-52); HEMOGLOBIN 12.5 G/DL (11.5-16.0); LYMPHOCYTES % (AUTO) 37 % (12-44); MEAN CORPUSCULAR HEMOGLOBIN 30 PG (25-34); MEAN CORPUSCULAR HGB CONC 33 G/DL (32-36); MEAN CORPUSCULAR VOLUME 92 FL (80-99); MEAN PLATELET VOLUME 9.8 FL (7.4-10.4); MONOCYTES # (AUTO) 0.5 X 10^3 (0.0-1.0); MONOCYTES % (AUTO) 5 % (0-12); NEUTROPHILS # (AUTO) 5.8 X 10^3 (1.8-7.8); NEUTROPHILS % (AUTO) 53 % (42-75); PLATELET COUNT 293 10^3/uL (130-400); RED CELL DISTRIBUTION WIDTH 13.7 % (10.0-14.5); WHITE BLOOD COUNT 10.8 10^3/uL (4.3-11.0)
[2020-02-28 20:47] LABS: ALBUMIN 4.1 GM/DL (3.2-4.5)
[2020-02-28 20:48] LABS: POTASSIUM 4.1 MMOL/L (3.6-5.0)
[2020-02-28 20:49] LABS: CALCIUM 8.8 MG/DL (8.5-10.1)
[2020-02-28 20:50] LABS: TOTAL PROTEIN 7.3 GM/DL (6.4-8.2)
[2020-02-28 20:52] LABS: BILIRUBIN,TOTAL 0.2 MG/DL (0.1-1.0); INR 0.9 (0.8-1.4); PROTHROMBIN TIME PATIENT 12.1 SEC (12.2-14.7)
--- NOTE | 2020-02-28 20:53 | Diagnostic Imaging Report ---
INDICATION: Hypertension. Headache. Chest pain. COMPARISON: 01/01/2020. EXAMINATION: Portable chest. FINDINGS: The lungs are well-aerated and clear. Heart is not enlarged. No pulmonary edema or hilar adenopathy. No pneumothorax or pleural effusion. No bony abnormality. Port-A-Cath remains in good position on the right. IMPRESSION: Normal portable chest. Dictated by: Dictated on workstation # [id number]
[2020-02-28 20:54] LABS: CREATININE SERUM 1.07 MG/DL (0.60-1.30)
== END 2020-02-28 23:06 | disposition home or self-care (01) ==
LOC: EDUNIT# 20:04 → ER 20:05
DX: I10 Essential (primary) hypertension (principal); E11.40 Type 2 diabetes mellitus with diabetic neuropathy, unspecified; E78.5 Hyperlipidemia, unspecified; I25.10 Atherosclerotic heart disease of native coronary artery without angina pectoris; E78.00 Pure hypercholesterolemia, unspecified; K21.0 Gastro-esophageal reflux disease with esophagitis; F17.210 Nicotine dependence, cigarettes, uncomplicated; F17.290 Nicotine dependence, other tobacco product, uncomplicated; Z86.718 Personal history of other venous thrombosis and embolism; Z95.5 Presence of coronary angioplasty implant and graft; Z88.6 Allergy status to analgesic agent; Z88.1 Allergy status to other antibiotic agents; Z91.040 Latex allergy status; Z88.8 Allergy status to other drugs, medicaments and biological substances; Z79.4 Long term (current) use of insulin; Z79.82 Long term (current) use of aspirin; Z80.8 Family history of malignant neoplasm of other organs or systems; Z80.1 Family history of malignant neoplasm of trachea, bronchus and lung; Z82.49 Family history of ischemic heart disease and other diseases of the circulatory system
CPT/HCPCS: 36415; 71045; 80053; 82962; 83735; 83874; 84484; 85025; 85610; 85730; 93041

== ENCOUNTER 2020-03-21 12:45 | Outpatient (RCR) | payer MEDICARE ==
[~2020-03-21 12:45] MED LIST changes: -ERYT250C61 PO; +ERYT250C62 PO
[2020-03-21] MEDS ORDERED: HEParin (CENTRAL IV FLUSH) 500 UNIT/5 ML SYR ONE (12:48)
[2020-03-21 12:49] VITALS: BP 129/69
[2020-03-21] MEDS ORDERED: HEParin (CENTRAL IV FLUSH) 500 UNIT/5 ML SYR IV ONE (13:00)
[2020-03-29] MEDS ORDERED: MTP100TCR PO (10:53)
[2020-03-29] MEDS ORDERED: INSU100I29 SQ (10:53)
[2020-03-29] MEDS ORDERED: GABA800T10 PO (10:53)
[2020-05-01] MEDS ORDERED: METO50TA15 PO (08:44)
[2020-05-01] MEDS ORDERED: TRAM50TA3 PO (09:20)
[2020-05-01] MEDS ORDERED: OXYC-471 PO (11:52)
[2020-06-15] MEDS ORDERED: APIX5TAB PO (09:24)
[2020-06-15] MEDS ORDERED: ATOR10TA66 PO (09:26)
[2020-06-17] MEDS ORDERED: MELA5TAB14 PO (10:22)
[2020-06-17] MEDS ORDERED: INSU100I14 SC (10:22)
[2020-06-17] MEDS ORDERED: GLYC1DRO OU (10:22)
[2020-06-17] MEDS ORDERED: DIPH25TA65 PO (10:22)
[2020-06-18] MEDS ORDERED: OXYC-471 PO (10:47)
== END 2020-06-19 | disposition home or self-care (01) ==
LOC: SDC 12:45
PROVIDERS: ATTEND Pediatrics
DX: Z95.828 Presence of other vascular implants and grafts (principal)
CPT/HCPCS: 96523

== ENCOUNTER 2020-04-05 08:01 | Outpatient (RCR) | payer MEDICARE ==
[2020-03-29 10:05] VITALS: BP 160/88
[~2020-04-05] VITALS: Ht 149.9 cm; Wt 66.0 kg
[~2020-04-05 08:01] MED LIST changes: +ERYT250C61 PO; -ERYT250C62 PO; +MTP100TCR PO
== END 2020-04-05 16:00 | disposition home or self-care (01) ==
LOC: PREOP 08:01
PROVIDERS: ATTEND Orthopaedic Surgery
DX: Z01.812 Encounter for preprocedural laboratory examination (principal); Z11.59 Encounter for screening for other viral diseases; M75.102 Unspecified rotator cuff tear or rupture of left shoulder, not specified as traumatic
CPT/HCPCS: 87081; 87635

== ENCOUNTER 2020-04-10 09:40 | Day surgery (SDC) | payer MEDICARE ==
--- NOTE | 2020-04-01 11:43 | HISTORY AND PHYSICAL ---
DATE OF SERVICE: DATE OF ADMISSION: 04/10/2020. This will be for outpatient surgery on 04/10/2020 for left shoulder arthroscopy with open rotator cuff repair. HISTORY OF PRESENT ILLNESS: The patient is a 59-year-old female with progressive worsening left shoulder pain. She is right hand dominant. She reports an 8-month history of shoulder pain with associated weakness and loss of motion. She denies specific injury, but reports the symptoms have been progressive. She underwent an MRI, which revealed a supraspinatus tear and due to functional impairment and failure to improve with conservative measures, the patient has elected to proceed with surgical intervention. REVIEW OF SYSTEMS: No chest pain, no shortness of breath, no dysuria. PAST MEDICAL HISTORY: Diabetes, fibromyalgia, hyperlipidemia, hypertension, arthritis, chronic pain, hearing loss, renal disease, esophageal candidiasis and coronary artery disease. PAST SURGICAL HISTORY: Cholecystectomy, lumbar spine, cervical spine, ear tubes, coronary artery stent placement. FAMILY HISTORY: Significant for cardiovascular disease, diabetes, stroke. PRIMARY CARE PROVIDER: Dr. Greenwood. MEDICATIONS: Tylenol, gabapentin, omeprazole, Tradjenta, aspirin, Levemir, NovoLog, atorvastatin, suboxone, amlodipine. ALLERGIES: TORADOL, ZOFRAN, REGLAN, AND LATEX. SOCIAL HISTORY: The patient denies alcohol, tobacco use. PHYSICAL EXAMINATION: GENERAL: The patient is well-developed, well-nourished, in no acute distress. HEENT: Normocephalic, atraumatic. Pupils are equal, round, reactive to light. Oropharynx is clear. NECK: Supple, no lymphadenopathy. LUNGS: Clear to auscultation bilaterally. HEART: Regular rate and rhythm. ABDOMEN: Soft, nontender, nondistended. EXTREMITIES: The left shoulder demonstrates weakness with abduction and external rotation. She has active forward elevation of 90 degrees with assistance. She has full forward elevation. She is positive Neer's and positive Sinclair sign. External rotation is 80 degrees, internal rotation to her lower lumbar spine. She is nontender at acromioclavicular joint. IMPRESSION: Left rotator cuff tear. PLAN: Left shoulder arthroscopy with open rotator cuff repair. Risks, benefits, options, ramifications and recovery were discussed at length with the patient. She understands and wishes to proceed. Job ID: [id number] DocumentID: [id number] Dictated Date: 04/01/2020 11:19:33 Systems Technologist Date: 04/01/2020 11:42:34 Dictated By: SHAWN APLACIOS MD
[~2020-04-10] VITALS: Ht 149.9 cm; Wt 66.0 kg
[2020-04-10 09:39] VITALS: BP 168/78
[~2020-04-10 09:40] MED LIST changes: +oxyCODONE/APAP 5/325MG (PERCOCET 5) TABLET PO PRN
[2020-04-10] MEDS ORDERED: LACTATED RINGERS 1,000 ML IV PRN (09:46)
[2020-04-10] MEDS ORDERED: ceFAZolin INJECTION 1,000 MG in WATER (STERILE) FOR INJECTION 10 ML IV ONE (10:00)
[2020-04-10] MEDS ORDERED: BUPIVACAINE 0.25% 30 ML (SENSORCAINE) VIAL ONE (10:14)
--- NOTE | 2020-04-10 10:19 | NUR ---
FSBS 441 MG/DL. DR SALCIDO, ANESTHESIA, INFORMED.
[2020-04-10] MEDS ORDERED: inSUlin ASPART (NovoLOG) 1 UNIT/0.01 ML (CHARGE PER UNIT) IV ONE (10:30)
--- NOTE | 2020-04-10 10:38 | NUR ---
NOVALOG 10 UNITS GIVEN IV.
--- NOTE | 2020-04-10 11:05 | NUR ---
DR PALACOIS TO PT'S ROOM TO INFORM HER THAT SURGERY WILL BE CANCELLED FOR TODAY DUE TO ELEVATED BLOOD SUGAR. PT INFORMED BY DR PALACIOS TO RESUME HER HOME MEDICATIONS, FOCUS ON DIABETIC MANAGEMENT, AND CALL HIS OFFICE TO RESCHEDULE SURGERY.
--- NOTE | 2020-04-10 11:10 | NUR ---
FSBS 330 MG/DL. DR SALCIDO INFORMED. DR PALACIOS HAS BEEN KEPT INFORMED BY DR SALCIDO.
--- NOTE | 2020-04-10 11:24 | NUR ---
PORT FLUSHED WITH 20 ML NS, PT DISMISSED AMB.
== END 2020-04-10 11:24 | disposition home or self-care (01) ==
LOC: SDC 09:40
PROVIDERS: ATTEND Orthopaedic Surgery
DX: M75.102 Unspecified rotator cuff tear or rupture of left shoulder, not specified as traumatic (principal); E11.9 Type 2 diabetes mellitus without complications; M79.7 Fibromyalgia; E78.5 Hyperlipidemia, unspecified; I10 Essential (primary) hypertension; M19.91 Primary osteoarthritis, unspecified site; G89.29 Other chronic pain; H91.90 Unspecified hearing loss, unspecified ear; I25.10 Atherosclerotic heart disease of native coronary artery without angina pectoris; N28.9 Disorder of kidney and ureter, unspecified; Z95.5 Presence of coronary angioplasty implant and graft; Z79.899 Other long term (current) drug therapy; Z79.4 Long term (current) use of insulin; Z79.82 Long term (current) use of aspirin; Z91.040 Latex allergy status; Z88.8 Allergy status to other drugs, medicaments and biological substances; Z53.09 Procedure and treatment not carried out because of other contraindication
CPT/HCPCS: 82962

== ENCOUNTER 2020-04-25 08:48 | Outpatient (RCR) | payer MEDICARE ==
[~2020-04-25] VITALS: Ht 150 cm; Wt 63.6 kg
[~2020-04-25 08:48] MED LIST changes: -oxyCODONE/APAP 5/325MG (PERCOCET 5) TABLET PO PRN
== END 2020-04-25 16:17 | disposition home or self-care (01) ==
LOC: PREOP 08:48
PROVIDERS: ATTEND Orthopaedic Surgery
DX: Z01.818 Encounter for other preprocedural examination (principal); S46.012A Strain of muscle(s) and tendon(s) of the rotator cuff of left shoulder, initial encounter
CPT/HCPCS: 87635

== ENCOUNTER 2020-05-01 07:36 | Day surgery (SDC) | payer MEDICARE ==
--- NOTE | 2020-04-22 12:57 | HISTORY AND PHYSICAL ---
DATE OF SERVICE: This will be for outpatient surgery on to 05/01/2020 for left rotator cuff repair. HISTORY OF PRESENT ILLNESS: The patient is a 59-year-old female with longstanding progressive left shoulder pain with associated weakness. She reports progressive loss of function. She reports pain with overhead activities. Due to functional impairment and failure to improve with conservative measures, the patient elected to proceed with surgical intervention. REVIEW OF SYSTEMS: No chest pain, no shortness of breath, no dysuria. PAST MEDICAL HISTORY: Diabetes, fibromyalgia, hyperlipidemia, hypertension, arthritis, chronic pain, hearing loss, renal disease, esophageal candidiasis, heart disease. PAST SURGICAL HISTORY: Cholecystectomy, lumbar spine, cervical spine, ear tubes, coronary stent placement. FAMILY HISTORY: Significant for diabetes, cardiovascular disease. PRIMARY CARE PROVIDER: Dr. Greenwood. MEDICATIONS: Tylenol, gabapentin, omeprazole, Tradjenta, aspirin, insulin, atorvastatin, Suboxone, metoprolol and amlodipine. ALLERGIES: TORADOL, ZOFRAN, REGLAN, AND LATEX. SOCIAL HISTORY: The patient denies alcohol, tobacco use. Outside MRI reveals a small full thickness supraspinatus tear. PHYSICAL EXAMINATION: GENERAL: The patient is well-developed, well-nourished, in no acute distress. HEENT: Normocephalic, atraumatic. Pupils are equal, round, reactive to light. Oropharynx is clear. NECK: Supple, no lymphadenopathy. LUNGS: Clear to auscultation bilaterally. HEART: Regular rate and rhythm. ABDOMEN: Soft, nontender, nondistended. EXTREMITIES: Left shoulder demonstrates weakness with resisted abduction and external rotation with positive Neer's and positive Hawkin sign. Active forward elevation of 160 degrees, external rotation of 70 degrees, internal rotation is to her lower lumbar spine. IMPRESSION: Left rotator cuff tear. PLAN: Left shoulder arthroscopy with open rotator cuff repair. Risks, benefits, options, ramifications and recovery were discussed at length with the patient. She understands and wishes to proceed. Job ID: [id number] DocumentID: [id number] Dictated Date: 04/22/2020 10:43:51 Beam Dyer Date: 04/22/2020 12:56:45 Dictated By: SHAWN PALACIOS MD
[~2020-05-01] VITALS: Ht 150 cm; Wt 63.6 kg
[2020-05-01] VITALS (11 sets, daily range): BP systolic 111–156; BP diastolic 57–84
[2020-05-01] MEDS ORDERED: oxyCODONE/APAP 5/325MG (PERCOCET 5) TABLET PO PRN (07:45)
[2020-05-01] MEDS ORDERED: LACTATED RINGERS 1,000 ML IV PRN (07:52)
[2020-05-01] MEDS ORDERED: ceFAZolin INJECTION 1,000 MG in WATER (STERILE) FOR INJECTION 10 ML IV ONE (08:00)
[2020-05-01] MEDS ORDERED: BUPIVACAINE 0.25% 30 ML (SENSORCAINE) VIAL ONE (08:29)
[2020-05-01] MEDS ORDERED: morphine PF (DURAMORPH) 10 MG/10 ML AMP ONE (08:29)
[2020-05-01] MEDS ORDERED: MIDAZOLAM 2 MG/2 ML (VERSED) VIAL ONE (08:41)
[2020-05-01] MEDS ORDERED: fentaNYL INJECTION 100 MCG/2 ML AMP ONE ×2 (08:41→09:20)
[2020-05-01] MEDS ORDERED: proPOfol 200 MG/20 ML (DIPRIVAN) VIAL IV ONE (08:42)
[2020-05-01] MEDS ORDERED: LIDOCAINE PF 2% 5 ML (XYLOCAINE) VIAL ONE (08:42)
[2020-05-01] MEDS ORDERED: METO50TA15 PO (08:44)
[2020-05-01] MEDS ORDERED: TRAM50TA3 PO (09:20)
[2020-05-01] MEDS ORDERED: fentaNYL INJECTION 100 MCG/2 ML AMP IVP ONE (09:30)
[2020-05-01] MEDS ORDERED: ROCURONIUM 10 MG/ML 5 ML SYRINGE IV ONE (09:33)
[2020-05-01] MEDS ORDERED: NEOSTIGMINE 3 MG/3 ML VIAL ONE (09:33)
[2020-05-01] MEDS ORDERED: GLYCOPYRROLATE 0.2 MG/ML (ROBINUL) 2 ML VIAL ONE ×2 (09:33→09:59)
--- NOTE | 2020-05-01 09:40 | Progress Note-Pre Operative ---
Pre-Operative Progress Note H&P Reviewed The H&P was reviewed, patient examined and no changes noted. Date Seen by Provider: May 01, 2020 Time Seen by Provider: 09:20 Date H&P Reviewed: May 01, 2020 Time H&P Reviewed: 07:15 Pre-Operative Diagnosis: left rotator cuff tear SHAWN PALACIOS MD May 01, 2020 09:40
--- NOTE | 2020-05-01 09:41 | Progress Note-Post Operative ---
Post-Operative Progess Note Surgeon (s)/Artificial Flower Maker (s) Surgeon SHAWN PALACIOS MD Artificial Flower Maker: Jose A Morton Pre-Operative Diagnosis left rotator cuff tear Post-Operative Diagnosis left rotator cuff tear Procedure & Operative Findings Date of Procedure 05/01/20 Procedure Performed/Findings left shoulder arthroscopic acromioplasty and open rotator cuff repair Anesthesia Type GETA Estimated Blood Loss Estimated blood loss (mL): minimal Specimens/Packing Specimens Removed none Packing: none SHAWN PALACIOS MD May 01, 2020 09:41
[2020-05-01] MEDS ORDERED: SEVOFLURANE (ULTANE) 15 ML INHAL SOLN ONE (09:55)
[2020-05-01] MEDS ORDERED: PHENYLEPHRINE 100 MCG/ML 10 ML (ANESTHESIA) SYR ONE (10:21)
[2020-05-01] MEDS ORDERED: PROMETHAZINE INJ 25 MG/ML (PHENERGAN) AMP IVP ONE (10:45)
[2020-05-01] MEDS ORDERED: HYDROmorphone 2 MG/ML VIAL (DILAUDID) IV ONE (10:45)
[2020-05-01] MEDS ORDERED: HYDROmorphone 2 MG/ML VIAL (DILAUDID) ONE (10:47)
[2020-05-01] MEDS ORDERED: OXYC-471 PO (11:52)
--- NOTE | 2020-05-01 12:00 | NUR ---
PT RESTING WITH EYES CLOSED. RESPS EVEN ET UNLABORED. NO SX/SX OF DISTRESS. WHEN PT AWAKENED FOR VITAL SIGNS, SHE REPORTS PAIN 10/10. CONT DROWSY. DR PALACIOS AWARE.
[2020-05-01] MEDS ORDERED: HEParin (CENTRAL IV FLUSH) 500 UNIT/5 ML SYR ONE (12:41)
[2020-05-01] MEDS ORDERED: HEParin (CENTRAL IV FLUSH) 500 UNIT/5 ML SYR IV ONE (12:45)
--- NOTE | 2020-05-01 15:53 | OPERATIVE REPORT ---
DATE OF SERVICE: 05/01/2020 PREOPERATIVE DIAGNOSIS: Left rotator cuff tear. POSTOPERATIVE DIAGNOSIS: Left rotator cuff tear. PROCEDURES: 1. Left shoulder open rotator cuff repair. 2. Left shoulder arthroscopic acromioplasty. SURGEON: Osorio Palacios MD CLERK CARRIER: HEMANT Jaimes, who assisted throughout the procedure and closed the incisions. ANESTHESIA: General endotracheal by Woodrow Feliz. ESTIMATED BLOOD LOSS: Minimal. DRAINS: None. COMPLICATIONS: None. POSTOPERATIVE PLAN: Sling wear and passive range of motion for 4 weeks. The patient was transferred to the recovery room awake and in stable condition. STATEMENT OF MEDICAL NECESSITY: The patient is a 59-year-old right hand dominant female with complaints of left shoulder pain and weakness. An MRI revealed a small full thickness rotator cuff tear. She has undergone treatment with injections, home exercise program and activity modifications without relief and due to functional impairment and failure to improve with conservative measures, the patient elected to proceed with surgical intervention. Examination under anesthesia revealed forward elevation of 170 degrees, external rotation of 80 degrees, internal rotation of 70 degrees. Arthroscopic findings demonstrated a 1 cm full-thickness supraspinatus tear at the footprint anteriorly. The biceps anchor was intact. The remainder of the rotator cuff was intact. There was no labral pathology noted and no significant glenoid or humeral head articular wear. The subacromial space demonstrated a dense bursitis with sloping of the anterolateral acromion. DESCRIPTION OF PROCEDURE: After risks and benefits of procedure were discussed and questions were answered, an informed consent was signed and placed on chart, the operative site was confirmed in the preoperative holding area initialed by the surgeon. The patient was then transferred to the operating room. After adequate levels of general endotracheal anesthetic were obtained, a timeout was called, confirming the operative site. Examination under anesthesia was performed with above findings noted. The left shoulder and upper extremity were prepped and draped in the usual sterile fashion. Shoulder joint was injected with 20 mL of fluid as was the subacromial space. Standard posterior portal was placed and a diagnostic arthroscopy was carried out with the above findings noted. Scope was redirected into the subacromial space. Lateral portal was created. A bursectomy was performed and the acromion was planed to a flat type 1 acromion. The lateral portal was then extended. The deltoid was split in line with its fibers leaving attached to the acromion for later reapproximation. The rotator cuff tear was identified and sharply debrided. A single corkscrew anchor was placed and a modified Jaleel-Antonio repair was performed with excellent repair obtained. No undue tension was noted with the arm at the side. The wound was copiously irrigated. The deltoid was repaired in [id number] fashion using #2 FiberWire. The wound was further irrigated, 3-0 Vicryl was used to reapproximate subcutaneous tissue and skin was closed with 4-0 nylon in a running alternating horizontal mattress fashion. A soft dressing and sling were applied after infiltrating the incision with Marcaine and the shoulder joint with Duramorph and the patient was transferred to the recovery room awake and in stable condition. Job ID: [id number] DocumentID: [id number] Dictated Date: 05/01/2020 10:32:45 Half Section Ironer Date: 05/01/2020 15:52:01 Dictated By: OSORIO PALACIOS MD
--- NOTE | 2020-05-02 07:35 | Anesthesia-General Post-Op ---
General Patient Condition Mental Status/LOC: Same as Preop Cardiovascular: Satisfactory Nausea/Vomiting: Absent Respiratory: Satisfactory Pain: Controlled Complications: Absent Post Op Complications Complications None Follow Up Care/Instructions Patient Instructions None needed. Anesthesia/Patient Condition Patient Condition Patient is doing well, no complaints, stable vital signs, no apparent adverse anesthesia problems. No complications reported per nursing. [place] [facility] Yes KALEIGH DUMONT CRNA May 02, 2020 07:35
== END 2020-05-01 13:15 | disposition home or self-care (01) ==
LOC: SDC 07:36
PROVIDERS: ATTEND Orthopaedic Surgery
DX: M75.102 Unspecified rotator cuff tear or rupture of left shoulder, not specified as traumatic (principal); I25.10 Atherosclerotic heart disease of native coronary artery without angina pectoris; I82.409 Acute embolism and thrombosis of unspecified deep veins of unspecified lower extremity; I11.9 Hypertensive heart disease without heart failure; E78.5 Hyperlipidemia, unspecified; J40 Bronchitis, not specified as acute or chronic; G47.33 Obstructive sleep apnea (adult) (pediatric); E11.40 Type 2 diabetes mellitus with diabetic neuropathy, unspecified; K21.9 Gastro-esophageal reflux disease without esophagitis; K58.9 Irritable bowel syndrome, unspecified; M19.90 Unspecified osteoarthritis, unspecified site; M79.7 Fibromyalgia; M54.9 Dorsalgia, unspecified; G89.29 Other chronic pain; L40.9 Psoriasis, unspecified; F41.9 Anxiety disorder, unspecified; Z88.8 Allergy status to other drugs, medicaments and biological substances; Z88.1 Allergy status to other antibiotic agents; Z91.040 Latex allergy status; Z79.4 Long term (current) use of insulin; Z79.899 Other long term (current) drug therapy; Z79.82 Long term (current) use of aspirin; Z90.49 Acquired absence of other specified parts of digestive tract
CPT/HCPCS: 29826; 29827; 82962; 87081; C1713

== ENCOUNTER 2020-05-23 23:34 | Emergency (ER) | payer MEDICARE ==
[~2020-05-23] VITALS: Ht 149 cm; Wt 59.1 kg
[~2020-05-23 23:34] MED LIST changes: -ERYT250C61 PO; +ERYT250C62 PO; +METO50TA15 PO; +TRAM50TA3 PO
[2020-05-24 00:07] LABS: BASOPHILS % (AUTO) 0 % (0-10); EOSINOPHILS % (AUTO) 0 % (0-10); HEMATOCRIT 41 % (35-52); HEMOGLOBIN 14.5 G/DL (11.5-16.0); LYMPHOCYTES # (AUTO) 3.1 X 10^3 (1.0-4.0); LYMPHOCYTES % (AUTO) 14 % (12-44); MEAN CORPUSCULAR HEMOGLOBIN 30 PG (25-34); MEAN CORPUSCULAR HGB CONC 35 G/DL (32-36); MEAN CORPUSCULAR VOLUME 84 FL (80-99); MONOCYTES # (AUTO) 0.9 X 10^3 (0.0-1.0); MONOCYTES % (AUTO) 4 % (0-12); NEUTROPHILS # (AUTO) 18.7 X 10^3 (1.8-7.8); NEUTROPHILS % (AUTO) 82 % (42-75); PLATELET COUNT 353 10^3/uL (130-400); RED CELL DISTRIBUTION WIDTH 13.5 % (10.0-14.5); WHITE BLOOD COUNT 22.7 10^3/uL (4.3-11.0)
[2020-05-24 00:17] LABS: ALBUMIN 4.2 GM/DL (3.2-4.5); CHLORIDE 97 MMOL/L (98-107); POTASSIUM 4.9 MMOL/L (3.6-5.0); SODIUM 132 MMOL/L (135-145)
[2020-05-24 00:18] LABS: BILIRUBIN,URINE 2+ (NEGATIVE); CLARITY,URINE CLOUDY; COLOR,URINE AMBER; GLUCOSE, URINE (UA) 1+ (NEGATIVE); KETONES,URINE TRACE (NEGATIVE); LEUKOCYTE ESTERASE ,URINE NEGATIVE (NEGATIVE); NITRITE,URINE NEGATIVE (NEGATIVE); PROTEIN,URINE 3+ (NEGATIVE)
[2020-05-24 00:19] LABS: AMYLASE 62 U/L (25-125); CALCIUM 9.3 MG/DL (8.5-10.1)
[2020-05-24 00:20] LABS: TOTAL PROTEIN 7.6 GM/DL (6.4-8.2)
[2020-05-24 00:21] LABS: CARBON DIOXIDE 11 MMOL/L (21-32)
[2020-05-24 00:22] LABS: BILIRUBIN,TOTAL 0.3 MG/DL (0.1-1.0)
[2020-05-24 00:23] LABS: ALKALINE PHOSPHATASE 143 U/L (40-136)
[2020-05-24 00:24] LABS: CREATININE SERUM 4.06 MG/DL (0.60-1.30); GFR ESTIMATED 11
[2020-05-24 00:26] LABS: ALANINE AMINOTRANSFERASE 19 U/L (0-55)
[2020-05-24 00:27] LABS: GLUCOSE 582 MG/DL (70-105); MAGNESIUM 2.4 MG/DL (1.6-2.4)
[2020-05-24 00:28] LABS: ACETAMINOPHEN < 10 UG/ML (10-30); BUN/CREATININE RATIO 15; CREATINE KINASE 3054 U/L (29-168); LIPASE 15 U/L (8-78)
[2020-05-24] MEDS ORDERED: NS IV 1000 ML 1,000 ML IV SCH ×2 (00:29→03:44)
[2020-05-24] MEDS ORDERED: inSUlin (REGULAR) HUMAN 1 UNIT/0.01 ML (CHARGE PER UNIT) IV ONE (00:30)
[2020-05-24] MEDS: NS IV 1000 ML 1,000 ML IV SCH ×2 (00:30→01:21)
[2020-05-24 00:33] LABS: ABG BASE EXCESS -12.8 MMOL/L (-2.5-2.5); ABG OXYGEN SATURATION 96 % (94-100); ABG PCO2 31 MMHG (35-45); ABG PO2 91 MMHG (79-93); ABG TCO2 14.1 MMOL/L (21.0-31.0)
[2020-05-24 00:34] LABS: ALLENS TEST POSITIVE; INSPIRED O2 RA; PATIENT TEMP 37.5; VENTILATOR NO
[2020-05-24 00:35] LABS: ABG PH 7.24 (7.37-7.43)
[2020-05-24 00:36] LABS: CREATINE KINASE MB 57.4 NG/ML (<6.6)
[2020-05-24 00:44] LABS: PROTHROMBIN TIME PATIENT 13.3 SEC (12.2-14.7)
[2020-05-24] MEDS ORDERED: SODIUM BICARB 8.4% 50 MEQ/50 ML VIAL IV ONE (00:45)
--- NOTE | 2020-05-24 00:46 | ED General ---
General Chief Complaint: Trauma-Non Activation Stated Complaint: FALL,HYPERGLYCEMIC Nursing Triage Note: Pt to [facility] via [facility] from pt's home with c/o neck/back/shoulder pain after falling at 0900 this am. Pt arrives with C-collar in place, states greatest pain is in neck. EMS reports hyperglycemia en route, pt states they haven't ate in a week and has been taking insulin 3x/day. Pt denies LOC, A&O x 4. No external bleeding present on arrival. Nursing Sepsis Screen: No Definite Risk Source of Information: Patient (LIMITED HISTORIAN, AND GIVES SOME CONFLICTING INFORMATION ( WHICH IS NORMAL FOR PT) ), EMS, Old Records (PURA PIÑA DO) History of Present Illness Date Seen by Provider: May 23, 2020 Time Seen by Provider: 23:35 Initial Comments PT ARRIVES VIA EMS FROM HOME, C-COLLAR IN PLACE PT STATES SHE HAS BEEN SICK FOR THE LAST WEEK WITH NAUSEA/VOMITING, AND HAS NOT EATEN OR DRANK FOR THE LAST WEEK CLAIMS THAT SHE HAS CONTINUED TO TAKE HER INSULIN 3 TIMES A DAY PRESCRIBED, BUT HAS NOT BEEN CHECKING HER BLOOD SUGARS STATES SHE DID NOT TAKE INSULIN TODAY ACCUCHECK WAS "HIGH" FOR EMS HAS NOT ATTEMPTED TO SEEK CARE PRIOR TO TODAY FOR THIS ISSUE IS NOT KNOWN WHEN SHE LAST URINATED STATES TODAY SHE WAS IN THE KITCHEN AND HAS BEEN VERY WEAK, AND FELL BACKWARDS ONTO THE FLOOR, AROUND 0900 THIS MORNING STATES SHE HAS LAID ON THE FLOOR ALL DAY/AT LEAST 13 HOURS, BECAUSE SHE COULDN'T GET UP--WAS TOO WEAK AND JUST PRIOR TO ARRIVAL SHE WAS ABLE TO CRAWL TO HER PHONE AND CALLED EMS. STATES SHE DID NOT LOSE CONSCIOUSNESS C/O PAIN TO BACK OF HEAD, BACK OF NECK, AND HER ENTIRE BACK, WELL LEFT SHOULDER PAIN PT HAD LEFT ROTATOR CUFF REPAIR 05/01/[address] PALACIOS VITALS STABLE FOR EMS: BP 113/46, HR 90, RR 18, O2 SAT 99% ON ROOM AIR. NO FEVER PT VERY WELL KNOWN TO ER, WITH A MULTITUDE OF VISITS, MANY FOR DKA/DIABETES RELATED COMPLAINTS, WELL VARIOUS PAIN COMPLAINTS MULTIPLE EPISODES OF DKA VERY EASILY CONTROLLED ON INSULIN IN HOSPITAL PT WITH A VERY EXTENSIVE HISTORY OF NARCOTIC ABUSE, WAS STARTED ON SUBOXONE SEVERAL MONTHS AGO,WHILE GOING TO [facility], BUT THEN SWITCHED TO DR. CALABRESE ABOUT 6 MONTHS AGO AND HAS NOT PRESCRIBED SUBOXONE OR PAIN MEDICATIONS. HOWEVER, SINCE SHOULDER SURGERY HAS BEEN BACK ON OXYCODONE, AND WAS PRESCRIBED ANOTHER #20 PILLS ON 05/22/20 PT HAS BEEN DX WITH CHRONIC NAUSEA NAD VOMITING AND HAS BEEN DX WITH DIABETIC GASTROPARESIS, BUT HAS REFUSED ALL TREATMENTS--ONLY WANTS PAIN MEDICATIONS AND PHENERGAN AND BENADRYL PT HAS AN EXTENSIVE HISTORY OF NON-COMPLIANCE IN ALL ASPECTS OF CARE HAS BEEN SEEN BY MULTIPLE PROVIDERS AT [facility] FOR A LONG TIME, AND THEIR PAIN MANAGEMENT TEAM, BUT STATES SHE "GOT FIRED" BY THEM, AND NOW FOR THE LAST 6 MONTHS, HAS BEEN SEEING DR. CALABRESE NO KNOWN SICK CONTACTS OR EXPOSURE TO COVID-19 NO FEVER/SWEATS/CHILLS NO COUGH/CONGESTION NO CHEST PAIN OR SHORTNESS OF BREATH NO ABDOMINAL PAIN NO HEADACHE NO VISION CHANGES NO CHANGES IN SMELL OR TASTE NO PARESTHESIAS OR MOTOR DEFICITS PCP: DR. CALABRESE ([facility]) Allergies and Home Medications Allergies Coded Allergies: ketorolac (Verified Allergy, Severe, ANAPHYLAXIS, PT TAKES ASA AT HOME, 03/06/19) ondansetron (Verified Allergy, Intermediate, RASH, 03/06/19) RASH/ HIVES scopolamine (Verified Allergy, Mild, Rash, 03/21/19) exenatide (Verified Allergy, Unknown, NAUSEA, 03/06/19) NON STOP VOMITING latex (Verified Allergy, Unknown, RASH, 03/06/19) metoclopramide (Verified Allergy, Unknown, RESTLESS LEGS, 03/06/19) erythromycin base (Verified Adverse Reaction, Unknown, 03/21/19) Home Medications Aspirin 81 Mg Tablet.dr, 81 MG PO DAILY, (Reported) Gabapentin 800 Mg Tablet, 1,600 MG PO HS, (Reported) TAKES 2 (800MG) TABLETS Gabapentin 800 Mg Tablet, 800 MG PO DAILY, (Reported) Insulin Detemir 100 Unit/1 Ml Insuln.pen, 20 UNIT SQ BID, (Reported) Insulin Lispro 100 Unit/1 Ml Insuln.pen, UNITS SQ TIDAC, (Reported) STATES HER METER TELL HER HOW MUCH TO ADMINISTER SCRIPT STATES 1 UNIT SUBQ FOR EVERY 4 CARBS WITH MEALS PLUS CORRECTION Metoprolol Succinate 100 Mg Tab.er.24h, 100 MG PO DAILY, (Reported) Metoprolol Tartrate 50 Mg Tablet, 50 MG PO HS, (Reported) Omeprazole 20 Mg Capsule.dr, 20 MG PO DAILY, (Reported) Oxycodone HCl/Acetaminophen 1 Each Tablet, 1 EACH PO Q4H PRN for PAIN-SEVERE Prescribed by: ANETTE OLSON on 05/01/20 1152 Tramadol HCl 50 Mg Tablet, 50 MG PO Q6H PRN for PAIN-MODERATE (5-7), (Reported) Patient Home Medication List Home Medication List Reviewed: Yes (PURA PIÑA DO) Review of Systems Review of Systems Constitutional: No chills, No diaphoresis, No fever; malaise, weakness EENTM: no symptoms reported; No blurred vision, No nose congestion, No throat pain Respiratory: no symptoms reported; No cough, No short of breath Cardiovascular: no symptoms reported; No chest pain, No edema, No palpitations, No syncope Gastrointestinal: see HPI; No abdominal pain, No constipation, No diarrhea; loss of appetite, nausea, vomiting Genitourinary: see HPI; No dysuria Musculoskeletal: see HPI, back pain, neck pain, other (LEFT SHOULDER PAIN ) Skin: no symptoms reported, other (NO WOUNDS FROM FALLING) Psychiatric/Neurological: No Symptoms Reported; Denies Headache, Denies Numbness, Denies Paresthesia, Denies Seizure, Denies Tingling Hematologic/Lymphatic: No Symptoms Reported Immunological/Allergic: no symptoms reported (PURA PIÑA DO) Past Solhfmy-Epwzne-Wulskl Hx Past Med/Social Hx: Reviewed and Corrections made (PURA PIÑA DO) Patient Social History Alcohol Use: Rarely Uses Number of Drinks Today: Alcohol Beverage of Choice: Wine Recreational Drug Use: Yes (NARCOTIC ABUSE) Drug of Choice: NARCOTIC ABUSE Smoking Status: Current Everyday Smoker (1 PPD) Type Used: Cigarettes 2nd Hand Smoke Exposure: No Recent Foreign Travel: No Contact w/Someone Who Travel: No Recent Infectious Disease Expo: No Recent Hopitalizations: No (PURA PIÑA DO) Immunizations Up To Date Tetanus Booster (TDap): Unknown PED Vaccines UTD: No Date of Pneumonia Vaccine: Nov 06, 2019 Date of Influenza Vaccine: Nov 22, 2019 (PURA PIÑA DO) Seasonal Allergies Seasonal Allergies: Yes (PURA PIÑA DO) Past Medical History Surgeries: Yes (LITHOTRIPSY;LUMBAR SURGERY X 4;BMT'S;EGD WITH ESOPHAGEAL DILATION;) Cardiac, Coronary Stent, Ear Surgery, Gallbladder, Orthopedic, Renal Respiratory: Yes Chronic Bronchitis, Sleep Apnea Currently Using CPAP: No Currently Using BIPAP: No Cardiac: Yes (DVT'S IN ARMS; CARDIAC STENT X 1; CAROTID DISEASE;LINQ DEVICE) Chronic Edema/Swelling, Coronary Artery Disease, Deep Vein Thrombosis, High Cholesterol, Hypertension, Palpitations Neurological: Yes (NEUROPATHY IN HANDS AND FEET) Headaches /Migraines, Neuropathy 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 Disorders: No 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 Disorders: Denies 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 Sexually Transmitted Disease: No HIV/AIDS: No Genitourinary: Yes Bladder Infection, Kidney Stones, Renal Failure Gastrointestinal: Yes (GASTRITIS;ESOPH STRICTURE/DILATION;GASTROPARESIS-CHRONIC N/V/ABD PAIN;DAVID) Gastroesophageal Reflux, Diverticulosis, Esophagitis, Irritable Bowel Musculoskeletal: Yes (CHRONIC GENERALIZED PAIN;CHRONIC BILAT SHOULDER PAIN;CHRONIC NECK PAIN ) Degenerate Disk Disease, Fibromyalgia, Chronic Back Pain Endocrine: Yes (NON-COMPLAINT;MULTIPLE EPISODES OF DKA-EASILY CONTROLLED ON INSULIN IN HOSP) Diabetes, Insulin dep HEENT: Yes (GLASSES; S/P BMT'S) Chronic Ear Infection Loss of Vision: Bilateral Hearing Impairment: Hard of Hearing Cancer: No Psychosocial: Yes Anxiety Integumentary: Yes Psoriasis Blood Disorders: No Adverse Reaction/Blood Tranf: No (PURA PIÑA DO) Family Medical History Cancer of mouth 19 FATHER ( of esophogeal cancer.) Cardiovascular disease 19 MOTHER G8 BROTHER Completed stroke 19 FATHER G8 BROTHER Diabetes mellitus G8 BROTHER FH: lung cancer 19 MOTHER Hypertension 19 FATHER Kidney disease 19 FATHER Myocardial infarction 19 MOTHER G8 BROTHER Respiratory disorder No Family History of: AIDS CAD Over 55 Years Old, CVA, Diabetes, GI Disease, Renal Disease PSH: -LINQ DEVICE PLACED 11/09/19 FOR REPORTED PALPITATIONS X 6 MONTHS, SINCE PERCOCET WAS DC'D -MULTIPLE CARDIAC CATHS--STENT X 1 TO LAD 07/13/15. LAST CATH 01/18/19--NO INTERVENTION -LUMBAR SPINE FUSION X 3--12/2002, 04/2007, AND 05/2007 -LUMBAR DISCECTOMY 10/2000--? LAMINECTOMY? -CERVICAL SPINE FUSION 11/2006 -CHOLECYSTECTOMY 1984 -BMT'S -LITHOTRIPSY AND RIGHT URETERAL STENT -EGD'S WITH ESOPHAGEAL DILATION -COLONOSCOPIES, LAST ONE 03/08/19 -PORT RIGHT CHEST -LEFT SHOULDER ROTATOR CUFF REPAIR 05/01/20--DR. PALACIOS (PURA PIÑA ) Physical Exam Vital Signs Vital Signs - First Documented 05/23/20 23:35 Temp 37.5 Pulse 92 Resp 15 B/P (MAP) 135/67 (89) Pulse Ox 100 O2 Delivery Room Air (LATANYA HOLLINGSWORTH) Vital Signs Capillary Refill : Less Than 3 Seconds (PURA PIÑA ) Height, Weight, BMI Height: 5'1.00" Weight: 122lbs. 1.0oz. [id number]; 26.00 BMI Method:Estimated General Appearance: No Apparent Distress, WD/WN, Other (REEKS OF CIGARETTES) HEENT: PERRL/EOMI, Other (DRY ORAL MUCOSA) Neck: Other (DIFFUSE TENDERNESS, IN CERVICAL COLLAR ON ARRIVAL) Respiratory: Chest Non Tender, Normal Breath Sounds, No Accessory Muscle Use, No Respiratory Distress Cardiovascular: Regular Rate, Rhythm, No Edema, No JVD, No Murmur, Normal Peripheral Pulses Gastrointestinal: Non Tender, Soft Back: Other (DIFFUSE TENDERNESS TO ENTIRE BACK ) Extremity: Normal Capillary Refill, No Calf Tenderness, No Pedal Edema, Other (TENDERNESS TO LEFT SHOULDER. NO SIGNS OF INFECTION AT SURGICAL SITE. 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 II-XII Norm as Tested Skin: Normal Color, Warm/Dry (AYANAPURA ) Focused Exam Lactate Level 05/23/20 23:50: Lactic Acid Level 1.16 (LATANYA HOLLINGSWORTH) Procedures/Interventions Date of ETT Placement: Dec 30, 2019 Time of ETT Placement: 0750 (PURA PIÑA ) Progress/Results/Core Measures Suspected Sepsis Recent Fever Within 48 Hours: No Infection Criteria Present: None New/Unexplained Altered Menta: No Sepsis Screen: No Definite Risk SIRS Temperature: Pulse: 87 Respiratory Rate: 18 Laboratory Tests 05/23/20 23:50: White Blood Count 22.7H 05/24/20 06:50: White Blood Count 15.4H Blood Pressure 135 /67 Mean: 89 05/23/20 23:50: Lactic Acid Level 1.16 Laboratory Tests 05/23/20 23:50: Creatinine 4.06H, INR Comment 1.0, Platelet Count 353, Total Bilirubin 0.3 05/24/20 06:50: Creatinine 2.50#H, Platelet Count 286 (PURA PIÑA DO) Results/Orders Lab Results Laboratory Tests Test 05/23/20 00:06 05/23/20 00:15 05/23/20 23:48 05/23/20 23:50 Range/Units Urine Color DON H Urine Clarity CLOUDY Urine pH 5.0 5-9 Urine Specific [place] >=1.030 1.016-1.022 Urine Protein 3+ H NEGATIVE Urine Glucose (UA) 1+ H NEGATIVE Urine Ketones TRACE H NEGATIVE Urine Nitrite NEGATIVE NEGATIVE Urine Bilirubin 2+ H NEGATIVE Urine Urobilinogen 0.2 < = 1.0 MG/DL Urine Leukocyte Esterase NEGATIVE NEGATIVE Urine RBC (Auto) 2+ H NEGATIVE Urine RBC 2-5 H /HPF Urine WBC NONE /HPF Urine Squamous Epithelial Cells 0-2 /HPF Urine Crystals PRESENT H /LPF Urine Calcium Oxalate Crystals FEW H /LPF Urine Amorphous Sediment LARGE ANITHA URATES H /LPF Urine Bacteria FEW H /HPF Urine Casts NONE /LPF Urine Mucus NEGATIVE /LPF Urine Yeast MODERATE H /HPF Urine Culture Indicated YES Urine Opiates Screen NEGATIVE NEGATIVE Urine Oxycodone Screen POSITIVE H NEGATIVE Urine Methadone Screen NEGATIVE NEGATIVE Urine Propoxyphene Screen NEGATIVE NEGATIVE Urine Barbiturates Screen NEGATIVE NEGATIVE Ur Tricyclic Antidepressants Screen NEGATIVE NEGATIVE Urine Phencyclidine Screen NEGATIVE NEGATIVE Urine Amphetamines Screen NEGATIVE NEGATIVE Urine Methamphetamines Screen NEGATIVE NEGATIVE Urine Benzodiazepines Screen NEGATIVE NEGATIVE Urine Cocaine Screen NEGATIVE NEGATIVE Urine Cannabinoids Screen NEGATIVE NEGATIVE Blood Gas Puncture Site RIGHT RADIAL Blood Gas Patient Temperature 37.5 Arterial Blood pH 7.24 *L 7.37-7.43 Arterial Blood Partial Pressure CO2 31 L 35-45 MMHG Arterial Blood Partial Pressure O2 91 79-93 MMHG Arterial Blood HCO3 13 *L 23-27 MMOL/L Arterial Blood Total CO2 14.1 L 21.0-31.0 MMOL/L Arterial Blood Oxygen Saturation 96 94-100 % Arterial Blood Base Excess -12.8 L -2.5-2.5 MMOL/L Antonio Test POSITIVE Blood Gas Ventilator Setting NO Blood Gas Inspired Oxygen RA Glucometer 558 *H 70-110 MG/DL White Blood Count 22.7 H 4.3-11.0 10^3/uL Red Blood Count 4.92 4.35-5.85 10^6/uL Hemoglobin 14.5 11.5-16.0 G/DL Hematocrit 41 35-52 % Mean Corpuscular Volume 84 80-99 FL Mean Corpuscular Hemoglobin 30 25-34 PG Mean Corpuscular Hemoglobin Concent 35 32-36 G/DL Red Cell Distribution Width 13.5 10.0-14.5 % Platelet Count 353 130-400 10^3/uL Mean Platelet Volume 11.0 H 7.4-10.4 FL Neutrophils (%) (Auto) 82 H 42-75 % Lymphocytes (%) (Auto) 14 12-44 % Monocytes (%) (Auto) 4 0-12 % Eosinophils (%) (Auto) 0 0-10 % Basophils (%) (Auto) 0 0-10 % Neutrophils # (Auto) 18.7 H 1.8-7.8 X 10^3 Lymphocytes # (Auto) 3.1 1.0-4.0 X 10^3 Monocytes # (Auto) 0.9 0.0-1.0 X 10^3 Eosinophils # (Auto) 0.0 0.0-0.3 10^3/uL Basophils # (Auto) 0.0 0.0-0.1 10^3/uL Neutrophils % (Manual) 78 % Lymphocytes % (Manual) 12 % Monocytes % (Manual) 3 % Metamyelocytes % 1 % Band Neutrophils 4 % Atypical Lymphocytes 2 % Basophilic Stippling SLIGHT Anisocytosis SLIGHT Prothrombin Time 13.3 12.2-14.7 SEC INR Comment 1.0 0.8-1.4 Activated Partial Thromboplast Time 68 H 24-35 SEC Sodium Level 132 L 135-145 MMOL/L Potassium Level 4.9 3.6-5.0 MMOL/L Chloride Level 97 L 98-107 MMOL/L Carbon Dioxide Level 11 L 21-32 MMOL/L Anion Gap 24 H 5-14 MMOL/L Blood Urea Nitrogen 62 H 7-18 MG/DL Creatinine 4.06 H 0.60-1.30 MG/DL Estimat Glomerular Filtration Rate 11 BUN/Creatinine Ratio 15 Glucose Level 582 *H 70-105 MG/DL Lactic Acid Level 1.16 0.50-2.00 MMOL/L Calcium Level 9.3 8.5-10.1 MG/DL Corrected Calcium 9.1 8.5-10.1 MG/DL Magnesium Level 2.4 1.6-2.4 MG/DL Total Bilirubin 0.3 0.1-1.0 MG/DL Aspartate Amino Transf (AST/SGOT) 36 H 5-34 U/L Alanine Aminotransferase (ALT/SGPT) 19 0-55 U/L Alkaline Phosphatase 143 H 40-136 U/L Total Creatine Kinase 3054 H 29-168 U/L Creatine Kinase MB 57.4 *H <6.6 NG/ML Myoglobin 8872.9 H 10.0-92.0 NG/ML Troponin I < 0.028 <0.028 NG/ML Total Protein 7.6 6.4-8.2 GM/DL Albumin 4.2 3.2-4.5 GM/DL Amylase Level 62 25-125 U/L Lipase 15 8-78 U/L Acetaminophen Level < 10 L 10-30 UG/ML Serum Alcohol < 10 <10 MG/DL Test 05/24/20 02:33 05/24/20 03:51 05/24/20 04:59 05/24/20 06:02 Range/Units Glucometer 503 *H 432 *H 272 H 282 H 70-110 MG/DL Test 05/24/20 06:53 Range/Units (LATANYA HOLLINGSWORTH) My Orders Orders - LATANYA HOLLINGSWORTH D5 1/2 Ns 1000 Ml Iv Solution (Dextrose (05/24/20 07:00) (LATANYA HOLLINGSWORTH) Medications Given in ED Current Medications Medications Dose Ordered Sig/Jackie Route Start Time Stop Time Status Last Admin Dose Admin Insulin Human Regular 20 unit ONCE ONCE IV 05/24/20 00:30 05/24/20 02:07 DC 05/24/20 01:21 20 UNIT Sodium Bicarbonate 50 meq ONCE ONCE IV 05/24/20 00:45 05/24/20 00:46 DC 05/24/20 01:32 50 MEQ (LATANYA HOLLINGSWORTH) Vital Signs/I&O 05/23/20 05/23/20 23:35 23:40 Temp 37.5 37.5 Pulse 92 87 Resp 15 18 B/P (MAP) 135/67 (89) 135/67 (89) Pulse Ox 100 100 O2 Delivery Room Air Room Air (LATANYA HOLLINGSWORTH) Vital Signs/I&O Capillary Refill : Less Than 3 Seconds (PURA PIÑA DO) Blood Pressure Mean: 89 Point of Care Testing Finger Stick Blood Glucose: 558 Blood Glucose Action Taken: 2348 (PURA PIÑA DO) Progress Note : Progress Note NO DETERIORATION IN PT'S CONDITION DURING ER STAY GIVEN IV FLUIDS AND STARTED ON INSULIN DRIP, AND FOLLOWED PROTOCOL, WITH HOURLY GLUCOSE CHECKS, AND 4 HOUR REPEAT LAB-- EMS WILL NOT TRANSPORT PT UNTIL S OMETIME AFTER 0800 THIS MORNING CERVICAL COLLAR REMOVED AFTER RECEIVING RADIOLOGIST REPORT OF CT SHOWING NO ACUTE INJURY 0630--CARE TURNED OVER TO DR. HOLLINGSWORTH, TRANSFER PENDING. (PURA PIÑA DO) Progress Note : Time: 07:00 Progress Note Assumed care of the patient at shift change. Her blood sugar presently is 170s and she is on insulin drip with no IV fluids. We added D5 half-normal saline. Her previous potassium was 4.1. Her 7:00 repeat BMP, magnesium and phosphorus have been drawn and sent to the lab. She is pending transfer. EMS informs us that will not transport until after 0800. (LATANYA HOLLINGSWORTH) ECG Initial ECG Impression Date: May 24, 2020 Initial ECG Impression Time: 00:27 Initial ECG Rate: 90 Initial ECG Rhythm: Normal Sinus (PURA PIÑA DO) Diagnostic Imaging Comments CXR--NO ACUTE PROCESS, PENDING RADIOLOGIST REVIEW XRAYS LEFT SHOULDER-NO ACUTE PROCESS, HARDWARE IN PLACE, PENDING RADIOLOGIST REVIEW PELVIS XRAY--NO ACUTE PROCESS, PENDING RADIOLOGIST REVIEW CT HEAD/CERVICAL SPINE--NO ACUTE PROCESS, DEGENERATIVE CHANGES, HARDWARE IN PLACE, CANNOT RULE OUT NORMAL PRESSURE HYDROCEPHALUS--PER [facility] VIA FAX AT [address]119 CT THORACIC/LUMBAR SPINE--NO ACUTE PROCESS, DEGENERATIVE CHANGES, HARDWARE IN PLACE--PER [facility] VIA FAX AT 0119 Reviewed: Reviewed by Me (PURA PIÑA DO) Departure Communication (Admissions) NO ICU BEDS AVAILABLE HERE AND NO NEPHROLOGY SERVICES HERE 0039--CALLED NATHAN HEADLEY--ON FULL DIVERSION, NO BEDS AVAILABLE 0040--CALLED SELINA--ON FULL DIVERSION, NO BEDS AVAILABLE 0122--CALLED [facility], HAVE BEDS, WILL CONTACT TRAUMA SURGEON AND COIL PLACER AND CALL BACK 0209--KU CALLED BACK, COIL PLACER ADVISES THAT PT MAY BE ADMITTED TO REGULAR MEDICAL FLOOR. WILL [facility] HOSPITALIST. 0219--KU CALLED BACK. DR. SNEED HAS ACCEPTED THE PT FOR ADMIT. ADVISES TO START INSULIN DRIP. 0230--EMS HAS BEEN CONTACTED. THEY WILL NOT TRANSPORT THE PT UNTIL SOMETIME AFTER 0800 (PURA PIÑA DO) Impression Primary Impression: DKA Additional Impressions: ACUTE RENAL FAILURE Rhabdomyolysis S/P FALL FROM STANDING DUE TO GENERALIZED WEAKNESS Nausea & vomiting POSSIBLE SEPSIS Minor head injury without loss of consciousness EXACERBATION OF CHRONIC NECK AND BACK PAIN Hx of diabetic gastroparesis Disposition: XFER SHT-TRM HOSP Condition: Stable Transfer Transfer Reason: Diversion Transfer Facility: Method of Transfer: EMS (PURA PIÑA DO) Departure-Patient Inst. Referrals: CINDY CALABRESE DO (PCP/Family) Primary Care Physician PURA PIÑA DO May 24, 2020 00:45 LATANYA HOLLINGSWORTH May 24, 2020 07:01
[2020-05-24 00:52] LABS: BACTERIA,URINE FEW /HPF
[2020-05-24 00:53] LABS: AMORPHOUS SEDIMENT,UR LARGE AMOR URATES /LPF; CALCIUM OXALATE CRYSTALS,UR FEW /LPF; SQUAMOUS EPITHELIAL CELL,UR 0-2 /HPF; YEAST,URINE MODERATE /HPF
[2020-05-24 00:59] LABS: AMPHETAMINE SCREEN, URINE NEGATIVE (NEGATIVE); BARBITURATE SCREEN URINE NEGATIVE (NEGATIVE); BENZODIAZEPINES SCREEN URINE NEGATIVE (NEGATIVE); CANNABINOID SCREEN, URINE NEGATIVE (NEGATIVE); COCAINE SCREEN URINE NEGATIVE (NEGATIVE); METHADONE STAT NEGATIVE (NEGATIVE); METHAMPHETAMINE SCREEN URINE S NEGATIVE (NEGATIVE); OPIATE SCREEN URINE NEGATIVE (NEGATIVE); OXYCODONE STAT POSITIVE (NEGATIVE); PROPOXYPHENE STAT NEGATIVE (NEGATIVE); TRICYCLIC ANTIDEPRESSANTS SCRE NEGATIVE (NEGATIVE)
[2020-05-24 01:00] LABS: ANISOCYTOSIS SLIGHT; ATYPICAL LYMPHOCYTES 2 %; BAND NEUTROPHILS 4 %; LYMPHOCYTES % (MANUAL) 12 %; METAMYELOCYTES % 1 %; MONOCYTES % (MANUAL) 3 %; NEUTROPHILS % (MANUAL) 78 %
[2020-05-24] MEDS ORDERED: fentaNYL INJECTION 100 MCG/2 ML AMP IVP STA (01:21)
--- NOTE | 2020-05-24 02:22 | NUR ---
WILL CONTACTED FOR [facility] FOR TRANSFER TO [facility], [facility] STATES IT WILL BE AFTER 0800 BEFORE THEY CAN TAKE PATIENT, DR PIÑA NOTIFIED.
--- NOTE | 2020-05-24 03:09 | NUR ---
[facility] CALLED FOR TRANSFER TO [facility], INFORMED THEY WILL CALL BACK TO LET US KNOW.
--- NOTE | 2020-05-24 05:30 | Diagnostic Imaging Report ---
EXAMINATION: AP supine chest INDICATION: Neck, back, and shoulder pain after fall. COMPARISON: Multiple priors, most recent performed on 02/28/2020. FINDINGS: The lungs are clear and the pulmonary vasculature is normal. There is unchanged eventration of the right hemidiaphragm. Right IJ Port-A-Cath remains in place, with distal tip projecting over the lower SVC. Loop recorder device is again demonstrated in the left chest wall. Heart size and mediastinal contours are normal and unchanged. No acute osseous abnormality is identified. IMPRESSION: No radiographic evidence of acute chest disease. No significant change from prior. Dictated by: Dictated on workstation # [id number]
--- NOTE | 2020-05-24 05:33 | Diagnostic Imaging Report ---
EXAMINATION: Left shoulder, 3 views INDICATION: Left shoulder pain after fall. COMPARISON: None available. FINDINGS: No fracture or acute osseous abnormality. Bony alignment is maintained. The humeral head is well-seated in the glenohumeral joint. There is mild degenerative changes along the inferior glenoid rim. There is also mild degenerative change of the acromioclavicular joint, without evidence of acromioclavicular joint separation. Bone anchor is demonstrated in the humeral head. Soft tissues are unremarkable. The visualized right lung is clear. Cervical fusion hardware is again demonstrated. A loop recorder device is demonstrated in the left chest. IMPRESSION: No acute fracture or dislocation. Dictated by: Dictated on workstation # [id number]
--- NOTE | 2020-05-24 06:20 | Diagnostic Imaging Report ---
PROCEDURE: CT head and CT cervical spine without contrast. TECHNIQUE: Multiple contiguous axial images were obtained through the brain and cervical spine without the use of intravenous contrast. Sagittal and coronal reformations through the cervical spine were then performed. Auto Exposure Controls were utilized during the CT exam to meet ALARA standards for radiation dose reduction. INDICATION: Head and back pain status post fall COMPARISON: 12/30/2019 FINDINGS: CT head: The ventricles and cortical sulci are diffusely prominent, compatible with age-related volume loss. There are confluent areas of abnormal, low attenuation in the periventricular white matter. This is consistent with chronic small vessel ischemic changes. Old small right basal ganglial lacunar infarct is also noted. There is no midline shift or mass-effect. No acute intra-axial hemorrhage is seen. There are no abnormal areas of increased or decreased density to suggest acute hemorrhage or edema. No extra-axial masses or collections are present. The bony calvarium is intact. The visualized paranasal sinuses are unremarkable. The mastoid air cells are clear. CT cervical spine: Patient is status post previous anterior cervical fusion of C5-C7. Note is made of the anchor screws at T7 appear to extend into the T7-T1 intervertebral disc space. Otherwise, anchor screws appear well seated. Anterior fusion plate is well opposed to the underlying comanche osseous structures. Intervertebral disc spacers are also noted and appear appropriately positioned. Static alignment of the cervical spine is maintained. There is no significant anteroretrolisthesis. There is no evidence of jumped facets. Vertebral body heights are maintained as well. There is no acute fracture. No bony fragments are seen within the spinal canal. There are mild to moderate multilevel degenerative changes. Pre and paravertebral soft tissue structures are unremarkable. Note is made of calcified carotid atherosclerosis. Included portions of the lung apices are clear. IMPRESSION: 1. No acute intracranial abnormality. No CT evidence of mass, acute infarct or intracranial hemorrhage. 2. Chronic small vessel ischemic changes in deep white matter. 3. No acute fracture or dislocation in the cervical spine. 4. Postsurgical changes of previous anterior cervical fusion as described above. Dictated by: Dictated on workstation # [id number]
[2020-05-24] MEDS ORDERED: D5 1/2 NS 1000 ML IV SOLUTION 1,000 ML IV ONE (06:57)
[2020-05-24] MEDS ORDERED: D5 1/2 NS 1000 ML IV SOLUTION 1,000 ML IV SCH (07:00)
[2020-05-24] MEDS ORDERED: morphine INJ 10 MG/ML 1ML (SYR OR VIAL) IVP STA (07:09)
[2020-05-24 07:11] LABS: BASOPHILS # (AUTO) 0.1 10^3/uL (0.0-0.1); BASOPHILS % (AUTO) 1 % (0-10); EOSINOPHILS # (AUTO) 0.1 10^3/uL (0.0-0.3); EOSINOPHILS % (AUTO) 0 % (0-10); HEMATOCRIT 35 % (35-52); HEMOGLOBIN 11.9 G/DL (11.5-16.0); LYMPHOCYTES # (AUTO) 5.2 X 10^3 (1.0-4.0); LYMPHOCYTES % (AUTO) 34 % (12-44); MEAN CORPUSCULAR HEMOGLOBIN 29 PG (25-34); MEAN CORPUSCULAR HGB CONC 34 G/DL (32-36); MEAN CORPUSCULAR VOLUME 84 FL (80-99); MEAN PLATELET VOLUME 10.7 FL (7.4-10.4); MONOCYTES % (AUTO) 6 % (0-12); NEUTROPHILS # (AUTO) 9.2 X 10^3 (1.8-7.8); NEUTROPHILS % (AUTO) 59 % (42-75); PLATELET COUNT 286 10^3/uL (130-400); RED CELL DISTRIBUTION WIDTH 13.2 % (10.0-14.5); WHITE BLOOD COUNT 15.4 10^3/uL (4.3-11.0)
--- NOTE | 2020-05-24 07:29 | NUR ---
[facility] NOTIFIED THAT PT WOULD NEED TO BE TRANSFERED. HE STATES NO ONE CALLED HIM TO CONFIRM TRANSFER. HE STATES WOULD HAVE TRANSFER NOTIFIED AT 0800.
[2020-05-24 07:36] LABS: POTASSIUM 3.3 MMOL/L (3.6-5.0)
[2020-05-24 07:38] LABS: CALCIUM 7.7 MG/DL (8.5-10.1)
[2020-05-24 07:42] LABS: CREATININE SERUM 2.5 MG/DL (0.60-1.30); PHOSPHORUS 3.2 MG/DL (2.3-4.7)
[2020-05-24] MEDS ORDERED: D5 1/2 NS W/KCL 40 MEQ/L 1,000 ML IV SCH (07:45)
--- NOTE | 2020-05-24 08:01 | Diagnostic Imaging Report ---
INDICATION: Fall. Pelvic pain. COMPARISON: None FINDINGS: A single AP view of the pelvis was performed. There is no radiographic evidence of acute fracture or dislocation. Pubic symphysis is within normal limits. SI joints are symmetric. Proximal femurs are intact, bilaterally. The femoro-acetabular joint spaces appear maintained on this single frontal view. Remainder of the bony pelvis is intact as well. No unexpected radiopaque foreign bodies are seen. Included small bowel loops are nondistended. Postsurgical changes of prior lumbosacral fusion are noted. Impression: 1. No radiographic evidence of acute fracture or dislocation of the bony pelvis. Dictated by: Dictated on workstation # [id number]
--- NOTE | 2020-05-24 08:28 | Diagnostic Imaging Report ---
PROCEDURE: CT thoracic and lumbar spine without contrast. TECHNIQUE: Multiple contiguous axial images were obtained through the thoracic and lumbar spine without the use of intravenous contrast. Sagittal and coronal reformations were then performed.All CT scans use one or more of the following dose optimizing techniques: automated exposure control, MA and/or KvP adjustment based on a patient size and exam type, or iterative reconstruction. INDICATION: Fall with neck pain and back pain. Curvature and alignment of the thoracic and lumbar spine is noted. There are postsurgical changes of decompression laminectomy with posterior instrumented fusion L3-S1 with vertical stabilization rods and pedicle screws. No hardware fracture or loosening is identified. Vertebral body heights are maintained. No acute compression fracture is seen. There is generalized thoracic and lumbar degenerative disc disease with variable disc space narrowing and marginal spurring. Paraspinous tissues are unremarkable. IMPRESSION: Thoracolumbar spondylosis and postsurgical changes. No acute bony abnormality is detected. Dictated by: Dictated on workstation # [id number]
[2020-05-24 08:46] VITALS: BP 121/63
== END 2020-05-24 08:45 | disposition short-term general hospital (02) ==
LOC: EDUNIT# 23:34 → ER 23:36
DX: E11.10 Type 2 diabetes mellitus with ketoacidosis without coma (principal); N17.9 Acute kidney failure, unspecified; M62.82 Rhabdomyolysis; E11.43 Type 2 diabetes mellitus with diabetic autonomic (poly)neuropathy; K31.84 Gastroparesis; F11.10 Opioid abuse, uncomplicated; F17.210 Nicotine dependence, cigarettes, uncomplicated; M47.892 Other spondylosis, cervical region; M47.894 Other spondylosis, thoracic region; R53.1 Weakness; R11.2 Nausea with vomiting, unspecified; S09.90XA Unspecified injury of head, initial encounter; Z91.19 Patient's noncompliance with other medical treatment and regimen; Z79.4 Long term (current) use of insulin; W19.XXXA Unspecified fall, initial encounter; Z86.718 Personal history of other venous thrombosis and embolism
CPT/HCPCS: 51702; 70450; 71045; 72125; 72128; 72131; 72170; 73030; 80048; 80053; 80306; 81000; 82150; 82550; 82553; 82805; 82962 ×2; 83605; 83690; 83735 ×2; 83874; 84100; 84484; 85007; 85025; 85027; 85610; 85730; 87088; 93005; 93041; 96361; 96365; 96366; 96375; 99291; G0480 ×2; 36415; 80320; 80329

== ENCOUNTER 2020-06-05 15:55 | Emergency (ER) | payer MEDICARE ==
[~2020-06-05] VITALS: Ht 149.9 cm; Wt 64.0 kg
[2020-06-05 16:00] VITALS: BP 143/80
--- NOTE | 2020-06-05 16:09 | ED General ---
General Chief Complaint: Glucose Problems Stated Complaint: LOW BLOOD SUGAR Nursing Triage Note: PT AMBULATE TO ROOM 07 WITH C/O HYPOGLYCEMIA. Nursing Sepsis Screen: No Definite Risk Source of Information: Patient Exam Limitations: No Limitations History of Present Illness Date Seen by Provider: Jun 05, 2020 Time Seen by Provider: 16:06 Initial Comments To ER by private vehicle with reports of low blood sugar ranging from 40-60 today despite eating a candy bar and several high glucose content snacks. She has not yet taken her daily insulin because her blood sugar was okay this morning. Timing/Duration: 1-2 Days Severity: Moderate Associated Systoms: No Chest Pain, No Headaches, No Nausea/Vomiting Allergies and Home Medications Allergies Coded Allergies: ketorolac (Verified Allergy, Severe, ANAPHYLAXIS, PT TAKES ASA AT HOME, 03/06/19) ondansetron (Verified Allergy, Intermediate, RASH, 03/06/19) RASH/ HIVES scopolamine (Verified Allergy, Mild, Rash, 03/21/19) exenatide (Verified Allergy, Unknown, NAUSEA, 03/06/19) NON STOP VOMITING latex (Verified Allergy, Unknown, RASH, 03/06/19) metoclopramide (Verified Allergy, Unknown, RESTLESS LEGS, 03/06/19) erythromycin base (Verified Adverse Reaction, Unknown, 03/21/19) Home Medications Aspirin 81 Mg Tablet.dr, 81 MG PO DAILY, (Reported) Gabapentin 800 Mg Tablet, 1,600 MG PO HS, (Reported) TAKES 2 (800MG) TABLETS Gabapentin 800 Mg Tablet, 800 MG PO DAILY, (Reported) Insulin Detemir 100 Unit/1 Ml Insuln.pen, 20 UNIT SQ BID, (Reported) Insulin Lispro 100 Unit/1 Ml Insuln.pen, UNITS SQ TIDAC, (Reported) STATES HER METER TELL HER HOW MUCH TO ADMINISTER SCRIPT STATES 1 UNIT SUBQ FOR EVERY 4 CARBS WITH MEALS PLUS CORRECTION Metoprolol Succinate 100 Mg Tab.er.24h, 100 MG PO DAILY, (Reported) Metoprolol Tartrate 50 Mg Tablet, 50 MG PO HS, (Reported) Omeprazole 20 Mg Capsule.dr, 20 MG PO DAILY, (Reported) Oxycodone HCl/Acetaminophen 1 Each Tablet, 1 EACH PO Q4H PRN for PAIN-SEVERE Prescribed by: ANETTE OLSON on 05/01/20 1152 Tramadol HCl 50 Mg Tablet, 50 MG PO Q6H PRN for PAIN-MODERATE (5-7), (Reported) Patient Home Medication List Home Medication List Reviewed: Yes Review of Systems Review of Systems Constitutional: see HPI EENTM: see HPI Respiratory: no symptoms reported Cardiovascular: no symptoms reported Genitourinary: no symptoms reported Musculoskeletal: no symptoms reported Skin: no symptoms reported Psychiatric/Neurological: No Symptoms Reported Hematologic/Lymphatic: No Symptoms Reported Immunological/Allergic: no symptoms reported Past Ngsgphj-Xwmple-Cqizze Hx Patient Social History Alcohol Use: Denies Use Number of Drinks Today: Alcohol Beverage of Choice: Wine Recreational Drug Use: Yes Drug of Choice: NARCOTIC ABUSE Smoking Status: Former Smoker Type Used: Cigarettes Former Smoker, Quit: Nov 10, 2017 2nd Hand Smoke Exposure: No Recent Foreign Travel: No Contact w/Someone Who Travel: No Recent Infectious Disease Expo: No Recent Hopitalizations: No Physical Abuse: No Sexual Abuse: No Mistreated: No Fear: No Immunizations Up To Date Tetanus Booster (TDap): Unknown PED Vaccines UTD: No Date of Pneumonia Vaccine: Nov 06, 2019 Date of Influenza Vaccine: Nov 22, 2019 Seasonal Allergies Seasonal Allergies: Yes Past Medical History Surgeries: Yes (LITHOTRIPSY;LUMBAR SURGERY X 4;BMT'S;EGD WITH ESOPHAGEAL D ILATION;) Cardiac, Coronary Stent, Ear Surgery, Gallbladder, Orthopedic, Renal Respiratory: Yes Chronic Bronchitis, Sleep Apnea Currently Using CPAP: No Currently Using BIPAP: No Cardiac: Yes (DVT'S IN ARMS; CARDIAC STENT X 1; CAROTID DISEASE;LINQ DEVICE) Chronic Edema/Swelling, Coronary Artery Disease, Deep Vein Thrombosis, High Cholesterol, Hypertension, Palpitations Neurological: Yes (NEUROPATHY IN HANDS AND FEET) Headaches /Migraines, Neuropathy 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 Disorders: No 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 Disorders: Denies 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: Menopausal Sexually Transmitted Disease: No HIV/AIDS: No Genitourinary: Yes Bladder Infection, Kidney Stones, Renal Failure Gastrointestinal: Yes (GASTRITIS;ESOPH STRICTURE/DILATION;GASTROPARESIS-CHRONIC N/V/ABD PAIN;DAVID) Gastroesophageal Reflux, Diverticulosis, Esophagitis, Irritable Bowel Musculoskeletal: Yes (CHRONIC GENERALIZED PAIN;CHRONIC BILAT SHOULDER PAIN;CHRONIC NECK PAIN ) Degenerate Disk Disease, Fibromyalgia, Chronic Back Pain Endocrine: Yes (NON-COMPLAINT;MULTIPLE EPISODES OF DKA-EASILY CONTROLLED ON INSULIN IN HOSP) Diabetes, Insulin dep HEENT: Yes (GLASSES; S/P BMT'S) Chronic Ear Infection Loss of Vision: Bilateral Hearing Impairment: Hard of Hearing Cancer: No Psychosocial: Yes Anxiety Integumentary: Yes Psoriasis Blood Disorders: No Adverse Reaction/Blood Tranf: No Family Medical History Cancer of mouth 19 FATHER ( of esophogeal cancer.) Cardiovascular disease 19 MOTHER G8 BROTHER Completed stroke 19 FATHER G8 BROTHER Diabetes mellitus G8 BROTHER FH: lung cancer 19 MOTHER Hypertension 19 FATHER Kidney disease 19 FATHER Myocardial infarction 19 MOTHER G8 BROTHER Respiratory disorder No Family History of: AIDS CAD Over 55 Years Old, CVA, Diabetes, GI Disease, Renal Disease PSH: -LINQ DEVICE PLACED 11/09/19 FOR REPORTED PALPITATIONS X 6 MONTHS, SINCE PERCOCET WAS DC'D -MULTIPLE CARDIAC CATHS--STENT X 1 TO LAD 07/13/15. LAST CATH 01/18/19--NO INTERVENTION -LUMBAR SPINE FUSION X 3--12/2002, 04/2007, AND 05/2007 -LUMBAR DISCECTOMY 10/2000--? LAMINECTOMY? -CERVICAL SPINE FUSION 11/2006 -CHOLECYSTECTOMY 1983 -BMT'S -LITHOTRIPSY AND RIGHT URETERAL STENT -EGD'S WITH ESOPHAGEAL DILATION -COLONOSCOPIES, LAST ONE 03/08/19 -PORT RIGHT CHEST -LEFT SHOULDER ROTATOR CUFF REPAIR 05/01/20--DR. PALACIOS Physical Exam Vital Signs Vital Signs - First Documented 06/05/20 16:00 Temp 36.7 Pulse 86 Resp 17 B/P (MAP) 143/80 (101) O2 Delivery Room Air Capillary Refill : Less Than 3 Seconds Height, Weight, BMI Height: 5'1.00" Weight: 122lbs. 1.0oz. [id number]; 28.00 BMI Method:Estimated General Appearance: No Apparent Distress, Chronically ill, Other (no distress alert and oriented ambulatory to room 7 without assistance from staff, does have a walker with her. Left arm in a sling. Fingerstick glucose for us is 83) Eyes: Bilateral Eye Normal Inspection, Bilateral Eye PERRL, Bilateral Eye EOMI Neck: Full Range of Motion, Normal Inspection Respiratory: No Accessory Muscle Use, No Respiratory Distress Gastrointestinal: Non Tender, Soft Extremity: Normal Capillary Refill, Normal Inspection Neurologic/Psychiatric: Alert, Oriented x3 Skin: Normal Color, Warm/Dry Procedures/Interventions Date of ETT Placement: Dec 30, 2019 Time of ETT Placement: 0750 Progress/Results/Core Measures Suspected Sepsis Recent Fever Within 48 Hours: No Infection Criteria Present: None New/Unexplained Altered Menta: No Sepsis Screen: No Definite Risk SIRS Temperature: Pulse: 86 Respiratory Rate: 17 Laboratory Tests 06/05/20 16:24: White Blood Count 10.5 Blood Pressure 143 /80 Mean: 101 Laboratory Tests 06/05/20 16:24: Creatinine 0.98, Platelet Count 288, Total Bilirubin 0.2 Results/Orders Lab Results Laboratory Tests Test 06/05/20 16:24 Range/Units White Blood Count 10.5 4.3-11.0 10^3/uL Red Blood Count 3.53 L 4.35-5.85 10^6/uL Hemoglobin 10.6 L 11.5-16.0 G/DL Hematocrit 33 L 35-52 % Mean Corpuscular Volume 95 80-99 FL Mean Corpuscular Hemoglobin 30 25-34 PG Mean Corpuscular Hemoglobin Concent 32 32-36 G/DL Red Cell Distribution Width 14.5 10.0-14.5 % Platelet Count 288 130-400 10^3/uL Mean Platelet Volume 9.7 7.4-10.4 FL Neutrophils (%) (Auto) 50 42-75 % Lymphocytes (%) (Auto) 39 12-44 % Monocytes (%) (Auto) 6 0-12 % Eosinophils (%) (Auto) 4 0-10 % Basophils (%) (Auto) 1 0-10 % Neutrophils # (Auto) 5.2 1.8-7.8 X 10^3 Lymphocytes # (Auto) 4.1 H 1.0-4.0 X 10^3 Monocytes # (Auto) 0.7 0.0-1.0 X 10^3 Eosinophils # (Auto) 0.4 H 0.0-0.3 10^3/uL Basophils # (Auto) 0.1 0.0-0.1 10^3/uL Sodium Level 139 135-145 MMOL/L Potassium Level 4.7 3.6-5.0 MMOL/L Chloride Level 109 H 98-107 MMOL/L Carbon Dioxide Level 20 L 21-32 MMOL/L Anion Gap 10 5-14 MMOL/L Blood Urea Nitrogen 13 7-18 MG/DL Creatinine 0.98 0.60-1.30 MG/DL Estimat Glomerular Filtration Rate 58 BUN/Creatinine Ratio 13 Glucose Level 102 70-105 MG/DL Calcium Level 8.4 L 8.5-10.1 MG/DL Corrected Calcium 8.8 8.5-10.1 MG/DL Total Bilirubin 0.2 0.1-1.0 MG/DL Aspartate Amino Transf (AST/SGOT) 16 5-34 U/L Alanine Aminotransferase (ALT/SGPT) 10 0-55 U/L Alkaline Phosphatase 77 40-136 U/L Total Protein 6.1 L 6.4-8.2 GM/DL Albumin 3.5 3.2-4.5 GM/DL My Orders Orders - JR MARIE APRN Cbc With Automated Diff (06/05/20 16:04) Comprehensive Metabolic Panel (06/05/20 16:04) Vital Signs/I&O 06/05/20 16:00 Temp 36.7 Pulse 86 Resp 17 B/P (MAP) 143/80 (101) O2 Delivery Room Air Capillary Refill : Less Than 3 Seconds Blood Pressure Mean: 101 Point of Care Testing Finger Stick Blood Glucose: 83 Blood Glucose Action Taken: PROVIDER NOTIFIED. Departure Impression Primary Impression: History of hypoglycemia Disposition: HOME, SELF-CARE Condition: Stable Departure-Patient Inst. Decision time for Depature: 16:08 Referrals: CINDY CALABRESE DO (PCP/Family) Primary Care Physician Patient Instructions: Diabetes Type 2 (DC) JR MARIE APRN Jun 05, 2020 16:08
[2020-06-05 16:31] LABS: BASOPHILS # (AUTO) 0.1 10^3/uL (0.0-0.1); BASOPHILS % (AUTO) 1 % (0-10); EOSINOPHILS # (AUTO) 0.4 10^3/uL (0.0-0.3); EOSINOPHILS % (AUTO) 4 % (0-10); HEMATOCRIT 33 % (35-52); HEMOGLOBIN 10.6 G/DL (11.5-16.0); LYMPHOCYTES # (AUTO) 4.1 X 10^3 (1.0-4.0); LYMPHOCYTES % (AUTO) 39 % (12-44); MEAN CORPUSCULAR HEMOGLOBIN 30 PG (25-34); MEAN CORPUSCULAR HGB CONC 32 G/DL (32-36); MEAN CORPUSCULAR VOLUME 95 FL (80-99); MEAN PLATELET VOLUME 9.7 FL (7.4-10.4); MONOCYTES # (AUTO) 0.7 X 10^3 (0.0-1.0); MONOCYTES % (AUTO) 6 % (0-12); NEUTROPHILS # (AUTO) 5.2 X 10^3 (1.8-7.8); NEUTROPHILS % (AUTO) 50 % (42-75); PLATELET COUNT 288 10^3/uL (130-400); RED CELL DISTRIBUTION WIDTH 14.5 % (10.0-14.5); WHITE BLOOD COUNT 10.5 10^3/uL (4.3-11.0)
[2020-06-05 16:40] LABS: ALBUMIN 3.5 GM/DL (3.2-4.5)
[2020-06-05 16:41] LABS: POTASSIUM 4.7 MMOL/L (3.6-5.0)
[2020-06-05 16:42] LABS: CALCIUM 8.4 MG/DL (8.5-10.1)
[2020-06-05 16:43] LABS: TOTAL PROTEIN 6.1 GM/DL (6.4-8.2)
[2020-06-05 16:45] LABS: BILIRUBIN,TOTAL 0.2 MG/DL (0.1-1.0)
[2020-06-05 16:47] LABS: CREATININE SERUM 0.98 MG/DL (0.60-1.30)
== END 2020-06-05 16:54 | disposition home or self-care (01) ==
LOC: EDUNIT# 15:55 → ER 15:56
DX: E11.649 Type 2 diabetes mellitus with hypoglycemia without coma (principal); I25.10 Atherosclerotic heart disease of native coronary artery without angina pectoris; I10 Essential (primary) hypertension; E11.40 Type 2 diabetes mellitus with diabetic neuropathy, unspecified; G43.909 Migraine, unspecified, not intractable, without status migrainosus; K21.0 Gastro-esophageal reflux disease with esophagitis; G89.29 Other chronic pain; M54.9 Dorsalgia, unspecified; E11.10 Type 2 diabetes mellitus with ketoacidosis without coma; Z91.19 Patient's noncompliance with other medical treatment and regimen; E11.43 Type 2 diabetes mellitus with diabetic autonomic (poly)neuropathy; K31.84 Gastroparesis; M79.7 Fibromyalgia; M25.511 Pain in right shoulder; M25.512 Pain in left shoulder; M54.2 Cervicalgia; Z88.6 Allergy status to analgesic agent; Z88.8 Allergy status to other drugs, medicaments and biological substances; Z79.891 Long term (current) use of opiate analgesic; Z91.040 Latex allergy status; Z88.1 Allergy status to other antibiotic agents; Z79.82 Long term (current) use of aspirin; Z87.891 Personal history of nicotine dependence; Z79.4 Long term (current) use of insulin; Z95.5 Presence of coronary angioplasty implant and graft; Z82.49 Family history of ischemic heart disease and other diseases of the circulatory system; Z80.8 Family history of malignant neoplasm of other organs or systems; Z80.1 Family history of malignant neoplasm of trachea, bronchus and lung
CPT/HCPCS: 36415; 80053; 85025

== ENCOUNTER 2020-06-14 21:45 | Inpatient (IN) | payer MEDICARE ==
[~2020-06-14] VITALS: Ht 149.8 cm; Wt 68.1 kg
[~2020-06-14 21:45] MED LIST changes: -APIX5TAB PO; -DIPH25TA65 PO; -GLYC1DRO OU; -INSU100I14 SC; -MELA5TAB14 PO
[2020-06-14] MEDS ORDERED: inSUlin (REGULAR) HUMAN 1 UNIT/0.01 ML (CHARGE PER UNIT) IV ONE (22:00)
[2020-06-14 22:05] LABS: BASOPHILS # (AUTO) 0.1 10^3/uL (0.0-0.1); BASOPHILS % (AUTO) 1 % (0-10); EOSINOPHILS # (AUTO) 0.2 10^3/uL (0.0-0.3); EOSINOPHILS % (AUTO) 3 % (0-10); HEMATOCRIT 31 % (35-52); HEMOGLOBIN 10.9 G/DL (11.5-16.0); LYMPHOCYTES # (AUTO) 2.8 X 10^3 (1.0-4.0); LYMPHOCYTES % (AUTO) 32 % (12-44); MEAN CORPUSCULAR HEMOGLOBIN 30 PG (25-34); MEAN CORPUSCULAR HGB CONC 35 G/DL (32-36); MEAN CORPUSCULAR VOLUME 87 FL (80-99); MEAN PLATELET VOLUME 10.8 FL (7.4-10.4); MONOCYTES # (AUTO) 0.5 X 10^3 (0.0-1.0); MONOCYTES % (AUTO) 6 % (0-12); NEUTROPHILS # (AUTO) 5.3 X 10^3 (1.8-7.8); NEUTROPHILS % (AUTO) 59 % (42-75); PLATELET COUNT 228 10^3/uL (130-400); RED CELL DISTRIBUTION WIDTH 13.9 % (10.0-14.5); WHITE BLOOD COUNT 8.9 10^3/uL (4.3-11.0)
[2020-06-14 22:09] LABS: ALBUMIN 3.5 GM/DL (3.2-4.5)
[2020-06-14 22:10] LABS: POTASSIUM 4.9 MMOL/L (3.6-5.0)
[2020-06-14 22:11] LABS: CALCIUM 8.2 MG/DL (8.5-10.1)
[2020-06-14 22:12] LABS: TOTAL PROTEIN 6.1 GM/DL (6.4-8.2)
[2020-06-14 22:14] LABS: BILIRUBIN,TOTAL 0.3 MG/DL (0.1-1.0)
[2020-06-14] MEDS ORDERED: fentaNYL INJECTION 100 MCG/2 ML AMP IVP ONE (22:15)
[2020-06-14 22:16] LABS: CREATININE SERUM 1.89 MG/DL (0.60-1.30)
[2020-06-14 22:19] LABS: MAGNESIUM 1.8 MG/DL (1.6-2.4)
--- NOTE | 2020-06-14 22:30 | NUR ---
1L NS STARTED EN ROUTE COMPLETED AT THIS TIME.
[2020-06-15] VITALS (25 sets, daily range): BP systolic 89–129; BP diastolic 50–77
[2020-06-15] LABS: CLARITY,URINE CLEAR; COLOR,URINE YELLOW; GLUCOSE, URINE (UA) 3+ (NEGATIVE); KETONES,URINE NEGATIVE (NEGATIVE); LEUKOCYTE ESTERASE ,URINE NEGATIVE (NEGATIVE); NITRITE,URINE NEGATIVE (NEGATIVE); PROTEIN,URINE 2+ (NEGATIVE)
[2020-06-15 00:22] LABS: BILIRUBIN,URINE 1+ (NEGATIVE)
[2020-06-15 00:23] LABS: BACTERIA,URINE TRACE /HPF; WBC,URINE RARE /HPF
[2020-06-15] MEDS ORDERED: diphenhydrAMINE 50 MG/ML INJ (BENADRYL) IVP ONE (00:30)
[2020-06-15] MEDS ORDERED: PROMETHAZINE INJ 25 MG/ML (PHENERGAN) AMP IVP ONE (00:30)
[2020-06-15] MEDS ORDERED: inSUlin (REGULAR) HUMAN 1 UNIT/0.01 ML (CHARGE PER UNIT) IV ONE (00:30)
--- NOTE | 2020-06-15 01:05 | ED General ---
General Chief Complaint: Glucose Problems Stated Complaint: FALL,HYPERGLYCEMIA Nursing Triage Note: PT BROUGHT IN BY [facility] FROM HOME WITH COMPLAINT OF FALLS AND HIGH GLUCOSE. PT WAS RECENTLY DISCHARGED FROM AFTER BEING TRANSFERRED FROM [facility] FOR HYPERGLYCEMIA. PT STATES SHE HAS FALL THREE TIMES IN THREE DAYS. ALERT AND ORIENTED X4 Nursing Sepsis Screen: No Definite Risk Source of Information: Patient, EMS Exam Limitations: No Limitations History of Present Illness Date Seen by Provider: Jun 14, 2020 Time Seen by Provider: 21:46 Initial Comments This 60-year-old woman presents to the emergency room via EMS with complaints of multiple falls in the last couple of days and unmeasurable [place] glucose. She had recently been transferred to [facility] because of hyperglycemia and renal failur e. She had recovered and was discharged home. She denies fever, cough, or shortness of breath. She does not recall if she hit her head but she complains of severe headache after falling. She has felt dizzy. Allergies and Home Medications Allergies Coded Allergies: ketorolac (Verified Allergy, Severe, ANAPHYLAXIS, PT TAKES ASA AT HOME, 03/06/19) ondansetron (Verified Allergy, Intermediate, RASH, 03/06/19) RASH/ HIVES scopolamine (Verified Allergy, Mild, Rash, 03/21/19) exenatide (Verified Allergy, Unknown, NAUSEA, 03/06/19) NON STOP VOMITING latex (Verified Allergy, Unknown, RASH, 03/06/19) metoclopramide (Verified Allergy, Unknown, RESTLESS LEGS, 03/06/19) erythromycin base (Verified Adverse Reaction, Unknown, 03/21/19) Home Medications Aspirin 81 Mg Tablet.dr, 81 MG PO DAILY, (Reported) Gabapentin 800 Mg Tablet, 1,600 MG PO HS, (Reported) TAKES 2 (800MG) TABLETS Gabapentin 800 Mg Tablet, 800 MG PO DAILY, (Reported) Insulin Detemir 100 Unit/1 Ml Insuln.pen, 20 UNIT SQ BID, (Reported) Insulin Lispro 100 Unit/1 Ml Insuln.pen, UNITS SQ TIDAC, (Reported) STATES HER METER TELL HER HOW MUCH TO ADMINISTER SCRIPT STATES 1 UNIT SUBQ FOR EVERY 4 CARBS WITH MEALS PLUS CORRECTION Metoprolol Succinate 100 Mg Tab.er.24h, 100 MG PO DAILY, (Reported) Metoprolol Tartrate 50 Mg Tablet, 50 MG PO HS, (Reported) Omeprazole 20 Mg Capsule.dr, 20 MG PO DAILY, (Reported) Oxycodone HCl/Acetaminophen 1 Each Tablet, 1 EACH PO Q4H PRN for PAIN-SEVERE Prescribed by: ANETTE OLSON on 05/01/20 1152 Tramadol HCl 50 Mg Tablet, 50 MG PO Q6H PRN for PAIN-MODERATE (5-7), (Reported) Patient Home Medication List Home Medication List Reviewed: Yes Review of Systems Review of Systems Constitutional: no symptoms reported EENTM: no symptoms reported Respiratory: no symptoms reported Cardiovascular: no symptoms reported Gastrointestinal: no symptoms reported Genitourinary: no symptoms reported : No Musculoskeletal: see HPI Psychiatric/Neurological: See HPI Hematologic/Lymphatic: No Symptoms Reported Immunological/Allergic: no symptoms reported Past Jqowgzk-Yzepws-Xbgofy Hx Past Med/Social Hx: Reviewed Nursing Past Med/Soc Hx Patient Social History Alcohol Use: Denies Use Number of Drinks Today: Alcohol Beverage of Choice: Wine Recreational Drug Use: Yes Drug of Choice: NARCOTIC ABUSE Smoking Status: Former Smoker Type Used: Cigarettes Former Smoker, Quit: Nov 10, 2017 2nd Hand Smoke Exposure: No Recent Foreign Travel: No Contact w/Someone Who Travel: No Recent Infectious Disease Expo: No Recent Hopitalizations: No Physical Abuse: No Sexual Abuse: No Mistreated: No Fear: No Immunizations Up To Date Tetanus Booster (TDap): Unknown PED Vaccines UTD: No Date of Pneumonia Vaccine: Nov 06, 2019 Date of Influenza Vaccine: Nov 22, 2019 Seasonal Allergies Seasonal Allergies: Yes Past Medical History Surgeries: Yes (LITHOTRIPSY;LUMBAR SURGERY X 4;BMT'S;EGD WITH ESOPHAGEAL DILATION;) Cardiac, Coronary Stent, Ear Surgery, Gallbladder, Orthopedic, Renal Respiratory: Yes Chronic Bronchitis, Sleep Apnea Currently Using CPAP: No Currently Using BIPAP: No Cardiac: Yes (DVT'S IN ARMS; CARDIAC STENT X 1; CAROTID DISEASE;LINQ DEVICE) Chronic Edema/Swelling, Coronary Artery Disease, Deep Vein Thrombosis, High Cholesterol, Hypertension, Palpitations Neurological: Yes (NEUROPATHY IN HANDS AND FEET) Headaches /Migraines, Neuropathy 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 Disorders: No 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 Disorders: 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 Sexually Transmitted Disease: No HIV/AIDS: No Genitourinary: Yes Bladder Infection, Kidney Stones, Renal Failure Gastrointestinal: Yes (GASTRITIS;ESOPH STRICTURE/DILATION;GASTROPARESIS-CHRONIC N/V/ABD PAIN;DAVID) Gastroesophageal Reflux, Diverticulosis, Esophagitis, Irritable Bowel Musculoskeletal: Yes (CHRONIC GENERALIZED PAIN;CHRONIC BILAT SHOULDER PAIN;CHRONIC NECK PAIN ) Degenerate Disk Disease, Fibromyalgia, Chronic Back Pain Endocrine: Yes (NON-COMPLAINT;MULTIPLE EPISODES OF DKA-EASILY CONTROLLED ON INSULIN IN HOSP) Diabetes, Insulin dep HEENT: Yes (GLASSES; S/P BMT'S) Chronic Ear Infection Loss of Vision: Bilateral Hearing Impairment: Hard of Hearing Cancer: No Psychosocial: Yes Anxiety Integumentary: Yes Psoriasis Blood Disorders: No Adverse Reaction/Blood Tranf: No Family Medical History Cancer of mouth 19 FATHER ( of esophogeal cancer.) Cardiovascular disease 19 MOTHER G8 BROTHER Completed stroke 19 FATHER G8 BROTHER Diabetes mellitus G8 BROTHER FH: lung cancer 19 MOTHER Hypertension 19 FATHER Kidney disease 19 FATHER Myocardial infarction 19 MOTHER G8 BROTHER Respiratory disorder No Family History of: AIDS CAD Over 55 Years Old, CVA, Diabetes, GI Disease, Renal Disease PSH: -LINQ DEVICE PLACED 11/09/19 FOR REPORTED PALPITATIONS X 6 MONTHS, SINCE PERCOCET WAS DC'D -MULTIPLE CARDIAC CATHS--STENT X 1 TO LAD 07/13/15. LAST CATH 01/18/19--NO INTERVENTION -LUMBAR SPINE FUSION X 3--12/2002, 04/2007, AND 05/2007 -LUMBAR DISCECTOMY 10/2000--? LAMINECTOMY? -CERVICAL SPINE FUSION 11/2006 -CHOLECYSTECTOMY 1983 -BMT'S -LITHOTRIPSY AND RIGHT URETERAL STENT -EGD'S WITH ESOPHAGEAL DILATION -COLONOSCOPIES, LAST ONE 03/08/19 -PORT RIGHT CHEST -LEFT SHOULDER ROTATOR CUFF REPAIR 05/01/20--DR. PALACIOS Physical Exam Vital Signs Vital Signs - First Documented 06/14/20 06/15/20 21:48 02:45 Temp 36.8 Pulse 75 Resp 17 B/P (MAP) 143/63 (89) Pulse Ox 96 O2 Delivery Room Air O2 Flow Rate 2.00 Capillary Refill : Less Than 3 Seconds Height, Weight, BMI Height: 5'1.00" Weight: 122lbs. 1.0oz. 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 as Tested Skin: Normal Color, Warm/Dry Procedures/Interventions Date of ETT Placement: Dec 30, 2019 Time of ETT Placement: 0750 Progress/Results/Core Measures Suspected Sepsis Recent Fever Within 48 Hours: No Infection Criteria Present: None New/Unexplained Altered Menta: No Sepsis Screen: No Definite Risk SIRS Temperature: Pulse: 75 Respiratory Rate: 17 Laboratory Tests 06/14/20 21:54: White Blood Count 8.9 06/15/20 03:23: White Blood Count 9.5 Blood Pressure 143 /63 Mean: 89 Laboratory Tests 06/14/20 21:54: Creatinine 1.89H, Platelet Count 228, Total Bilirubin 0.3 06/15/20 03:23: Creatinine 1.60H, Platelet Count 238 06/15/20 06:34: Results/Orders Lab Results Laboratory Tests Test 06/14/20 21:53 06/14/20 21:54 06/14/20 23:50 06/15/20 00:21 Range/Units Glucometer > 600 *H 537 *H 70-110 MG/DL White Blood Count 8.9 4.3-11.0 10^3/uL Red Blood Count 3.59 L 4.35-5.85 10^6/uL Hemoglobin 10.9 L 11.5-16.0 G/DL Hematocrit 31 L 35-52 % Mean Corpuscular Volume 87 80-99 FL Mean Corpuscular Hemoglobin 30 25-34 PG Mean Corpuscular Hemoglobin Concent 35 32-36 G/DL Red Cell Distribution Width 13.9 10.0-14.5 % Platelet Count 228 130-400 10^3/uL Mean Platelet Volume 10.8 H 7.4-10.4 FL Neutrophils (%) (Auto) 59 42-75 % Lymphocytes (%) (Auto) 32 12-44 % Monocytes (%) (Auto) 6 0-12 % Eosinophils (%) (Auto) 3 0-10 % Basophils (%) (Auto) 1 0-10 % Neutrophils # (Auto) 5.3 1.8-7.8 X 10^3 Lymphocytes # (Auto) 2.8 1.0-4.0 X 10^3 Monocytes # (Auto) 0.5 0.0-1.0 X 10^3 Eosinophils # (Auto) 0.2 0.0-0.3 10^3/uL Basophils # (Auto) 0.1 0.0-0.1 10^3/uL Sodium Level 124 *L 135-145 MMOL/L Potassium Level 4.9 3.6-5.0 MMOL/L Chloride Level 95 L 98-107 MMOL/L Carbon Dioxide Level 17 L 21-32 MMOL/L Anion Gap 12 5-14 MMOL/L Blood Urea Nitrogen 38 H 7-18 MG/DL Creatinine 1.89 H 0.60-1.30 MG/DL Estimat Glomerular Filtration Rate 27 BUN/Creatinine Ratio 20 Glucose Level 842 *H 70-105 MG/DL Calcium Level 8.2 L 8.5-10.1 MG/DL Corrected Calcium 8.6 8.5-10.1 MG/DL Magnesium Level 1.8 1.6-2.4 MG/DL Total Bilirubin 0.3 0.1-1.0 MG/DL Aspartate Amino Transf (AST/SGOT) 7 5-34 U/L Alanine Aminotransferase (ALT/SGPT) 6 0-55 U/L Alkaline Phosphatase 92 40-136 U/L Total Protein 6.1 L 6.4-8.2 GM/DL Albumin 3.5 3.2-4.5 GM/DL Beta-Hydroxybutyrate (Chem panel) 0.92 H 0.00-0.27 MMOL/L Urine Color YELLOW Urine Clarity CLEAR Urine pH 6.0 5-9 Urine Specific [place] 1.015 L 1.016-1.022 Urine Protein 2+ H NEGATIVE Urine Glucose (UA) 3+ H NEGATIVE Urine Ketones NEGATIVE NEGATIVE Urine Nitrite NEGATIVE NEGATIVE Urine Bilirubin 1+ H NEGATIVE Urine Urobilinogen 0.2 < = 1.0 MG/DL Urine Leukocyte Esterase NEGATIVE NEGATIVE Urine RBC (Auto) NEGATIVE NEGATIVE Urine RBC NONE /HPF Urine WBC RARE /HPF Urine Squamous Epithelial Cells 5-10 /HPF Urine Crystals NONE /LPF Urine Bacteria TRACE /HPF Urine Casts PRESENT /LPF Urine Hyaline Casts 2-5 H /LPF Urine Mucus SMALL H /LPF Urine Culture Indicated NO Test 06/15/20 01:47 06/15/20 02:39 06/15/20 03:23 06/15/20 04:34 Range/Units Glucometer 419 *H 466 *H 448 *H 70-110 MG/DL White Blood Count 9.5 4.3-11.0 10^3/uL Red Blood Count 3.63 L 4.35-5.85 10^6/uL Hemoglobin 10.7 L 11.5-16.0 G/DL Hematocrit 31 L 35-52 % Mean Corpuscular Volume 87 80-99 FL Mean Corpuscular Hemoglobin 29 25-34 PG Mean Corpuscular Hemoglobin Concent 34 32-36 G/DL Red Cell Distribution Width 14.2 10.0-14.5 % Platelet Count 238 130-400 10^3/uL Mean Platelet Volume 10.6 H 7.4-10.4 FL Neutrophils (%) (Auto) 52 42-75 % Lymphocytes (%) (Auto) 38 12-44 % Monocytes (%) (Auto) 6 0-12 % Eosinophils (%) (Auto) 4 0-10 % Basophils (%) (Auto) 1 0-10 % Neutrophils # (Auto) 4.9 1.8-7.8 X 10^3 Lymphocytes # (Auto) 3.6 1.0-4.0 X 10^3 Monocytes # (Auto) 0.6 0.0-1.0 X 10^3 Eosinophils # (Auto) 0.4 H 0.0-0.3 10^3/uL Basophils # (Auto) 0.1 0.0-0.1 10^3/uL Sodium Level 131 L 135-145 MMOL/L Potassium Level 4.4 3.6-5.0 MMOL/L Chloride Level 102 98-107 MMOL/L Carbon Dioxide Level 18 L 21-32 MMOL/L Anion Gap 11 5-14 MMOL/L Blood Urea Nitrogen 38 H 7-18 MG/DL Creatinine 1.60 H 0.60-1.30 MG/DL Estimat Glomerular Filtration Rate 33 BUN/Creatinine Ratio 24 Glucose Level 500 *H 70-105 MG/DL Calcium Level 9.0 8.5-10.1 MG/DL Phosphorus Level 3.9 2.3-4.7 MG/DL Magnesium Level 1.9 1.6-2.4 MG/DL Test 06/15/20 05:30 06/15/20 06:34 Range/Units Glucometer 334 H 250 H 70-110 MG/DL My Orders Orders - WARD MUNGUIA MD Shoulder, Left, 3 Views (06/14/20 21:57) Ct Head/Cervical Spine Wo (06/14/20 21:57) Cbc With Automated Diff (06/14/20 21:57) Comprehensive Metabolic Panel (06/14/20 21:57) Magnesium (06/14/20 21:57) Ua Culture If Indicated (06/14/20 21:57) Accucheck Stat ONCE (06/14/20 21:57) Monitor-Rhythm Ecg Trace Only (06/14/20 21:57) Insulin (Regular) Human (Novolin R (Per (06/14/20 22:00) Fentanyl Injection (Sublimaze Injection (06/14/20 22:15) Accucheck Stat ONCE (06/15/20 00:06) Accucheck Stat ONCE (06/15/20 00:07) Promethazine Injection (Phenergan Injec (06/15/20 00:30) Diphenhydramine Injection (Benadryl Inje (06/15/20 00:30) Insulin (Regular) Human (Novolin R (Per (06/15/20 00:30) Beta Hydroxybutyrate (06/15/20 01:18) Hemoglobin A1c (06/15/20 01:18) Medications Given in ED Current Medications Medications Dose Ordered Sig/Jackie Route Start Time Stop Time Status Last Admin Dose Admin Diphenhydramine HCl 12.5 mg ONCE ONCE IVP 06/15/20 00:30 06/15/20 00:31 DC 06/15/20 00:43 12.5 MG Fentanyl Citrate 50 mcg ONCE ONCE IVP 06/14/20 22:15 06/14/20 22:16 DC 06/14/20 22:18 50 MCG Insulin Human Regular 5 unit ONCE ONCE IV 06/15/20 00:30 06/15/20 00:31 DC 06/15/20 00:42 5 UNIT Insulin Human Regular 10 unit ONCE ONCE IV 06/14/20 22:00 06/14/20 22:01 DC 06/14/20 22:07 10 UNIT Promethazine HCl 25 mg ONCE ONCE IVP 06/15/20 00:30 06/15/20 00:31 DC 06/15/20 00:43 25 MG Vital Signs/I&O 06/14/20 06/15/20 06/15/20 06/15/20 21:48 02:28 02:45 02:49 Temp 36.8 36.8 36.6 Pulse 75 83 70 76 Resp 17 18 19 B/P (MAP) 143/63 (89) 126/67 (89) 129/77 (94) Pulse Ox 96 97 98 O2 Delivery Room Air Room Air Nasal Cannula O2 Flow Rate 2.00 06/15/20 06/15/20 06/15/20 06/15/20 03:00 03:30 04:00 04:00 Pulse 69 70 67 Resp 15 15 12 B/P (MAP) 120/56 (77) 107/63 (78) 93/50 (64) Pulse Ox 99 99 94 97 O2 Delivery Nasal Cannula Room Air Room Air Room Air O2 Flow Rate 2.00 06/15/20 06/15/20 06/15/20 06/15/20 04:18 04:30 05:00 05:00 Temp 36.9 Pulse 67 70 Resp 12 12 B/P (MAP) 90/61 (71) 100/62 (75) Pulse Ox 97 95 92 O2 Delivery Room Air Room Air Room Air 06/15/20 06:00 Pulse 70 Resp 12 B/P (MAP) 90/54 (66) Pulse Ox 96 O2 Delivery Room Air 06/15/20 00:00 Intake Total 1000 ml Balance 1000 ml Capillary Refill : Less Than 3 Seconds Blood Pressure Mean: 89 Point of Care Testing Finger Stick Blood Glucose: 537 Blood Glucose Action Taken: AND RN NOTIFIED Progress Note : Time: 01:27 Progress Note Patient was found to be in mild DKA. She received a total of 15 units of insulin by IV route in the emergency room. She also received 2 L of IV fluid. Blood sugar was trending down while in the emergency room. Patient was cleared from a trauma perspective in the ER and did not require trauma services as an inpatient. Patient was excessively somnolent with Phenergan and fentanyl. No further pain medications were therefore ordered on the bridging orders. Diagnostic Imaging Diagonstic Imaging: CT Plain Films/CT/US/NM/MRI: c-spine, head Comments CT head and cervical spine viewed by me and stat rad report reviewed. No acute injuries were identified. Departure Communication (Admissions) Time/Spoke to Admitting Phy: 01:02 Dr. Yi Impression Primary Impression: Mild DKA Additional Impressions: Fall on same level Qualified Codes: W18.30XA - Fall on same level, unspecified, initial encounter Left shoulder pain Qualified Codes: M25.512 - Pain in left shoulder Disposition: ADMITTED INPATIENT Condition: Improved Admissions Decision to Admit Reason: Admit from ER (General) Decision to Admit/Date: Jun 15, 2020 Time/Decision to Admit Time: 00:30 Departure-Patient Inst. Referrals: CINDY CALABRESE DO (PCP/Family) Primary Care Physician Copy Copies To 1: CINDY CALABRESE JOSHUA T MD Jun 15, 2020 01:05
[2020-06-15] MEDS ORDERED: POTASSIUM CL 10MEQ/50ML IVPB 50 ML IV ONE (02:40)
--- NOTE | 2020-06-15 02:40 | NUR ---
VALENTE STEWART admitted to room CU5-1, with an admitting diagnosis of DKA, on 06/15/20 from ED via STRETCHER, accompanied by CREDIT CONTROL MANAGER KEATON.VALENTE HARPER introduced to surroundings, call light, bed controls, phone, TV, temperature control, lights, meal times, smoking policy, visitor policy, side rail policy, bathrooms and showers. Patient Rights given to patient in the handbook.VALENTE HARPER verbalizes understanding that [facility] is not responsible for the loss or damage to any personal effects or valuables that are kept in the patients possession during their hospitalization. CALL LIGHT WITHIN REACH, BED ALARM ON, WILL CONTINUE TO MONITOR.
[2020-06-15] MEDS ORDERED: 1/2 NS IV SOLUTION 1,000 ML IV ONE (02:41)
[2020-06-15] MEDS: 1/2 NS IV SOLUTION 1,000 ML IV SCH ×5 (03:07→19:20)
[2020-06-15] MEDS: POTASSIUM CL 10MEQ/50ML IVPB 50 ML IV SCH ×9 (03:07→18:36)
[2020-06-15 03:39] LABS: BASOPHILS # (AUTO) 0.1 10^3/uL (0.0-0.1); BASOPHILS % (AUTO) 1 % (0-10); EOSINOPHILS # (AUTO) 0.4 10^3/uL (0.0-0.3); EOSINOPHILS % (AUTO) 4 % (0-10); HEMATOCRIT 31 % (35-52); HEMOGLOBIN 10.7 G/DL (11.5-16.0); LYMPHOCYTES # (AUTO) 3.6 X 10^3 (1.0-4.0); LYMPHOCYTES % (AUTO) 38 % (12-44); MEAN CORPUSCULAR HGB CONC 34 G/DL (32-36); MEAN CORPUSCULAR VOLUME 87 FL (80-99); MEAN PLATELET VOLUME 10.6 FL (7.4-10.4); MONOCYTES # (AUTO) 0.6 X 10^3 (0.0-1.0); MONOCYTES % (AUTO) 6 % (0-12); NEUTROPHILS # (AUTO) 4.9 X 10^3 (1.8-7.8); NEUTROPHILS % (AUTO) 52 % (42-75); PLATELET COUNT 238 10^3/uL (130-400); RED CELL DISTRIBUTION WIDTH 14.2 % (10.0-14.5); WHITE BLOOD COUNT 9.5 10^3/uL (4.3-11.0)
[2020-06-15 03:43] LABS: MEAN CORPUSCULAR HEMOGLOBIN 29 PG (25-34)
[2020-06-15 03:59] LABS: POTASSIUM 4.4 MMOL/L (3.6-5.0)
[2020-06-15 04:05] LABS: CREATININE SERUM 1.6 MG/DL (0.60-1.30); PHOSPHORUS 3.9 MG/DL (2.3-4.7)
[2020-06-15 04:07] LABS: MAGNESIUM 1.9 MG/DL (1.6-2.4)
--- NOTE | 2020-06-15 04:09 | NUR ---
THIS RN COMPLETED PTS ADMISSION BASED OFF PT HISTORY IN CHART, PT EXTREMELY LETHARGIC AT THIS TIME. PT IS ALERT TO PERSON AND PLACE, CALL LIGHT WITHIN REACH, BED ALARM, WILL CONTINUE TO MONITOR.
[2020-06-15] MEDS: KCL 20 MEQ TAB (K-DUR) PO SCH (05:25)
[2020-06-15] MEDS: MAGNESIUM 1 GM/100 ML IVPB 100 ML IV SCH (05:25)
[2020-06-15 07:02] LABS: POTASSIUM 4.2 MMOL/L (3.6-5.0)
[2020-06-15 07:03] LABS: CALCIUM 8.4 MG/DL (8.5-10.1)
[2020-06-15 07:07] LABS: CREATININE SERUM 1.38 MG/DL (0.60-1.30)
[2020-06-15] MEDS: D5 1/2 NS 1000 ML IV SOLUTION 1,000 ML IV SCH ×4 (07:44→19:44)
[2020-06-15] MEDS ORDERED: APIX5TAB PO (09:24)
[2020-06-15] MEDS ORDERED: ATOR10TA66 PO (09:26)
--- NOTE | 2020-06-15 09:32 | Diagnostic Imaging Report ---
INDICATION: Shoulder pain. COMPARISON: 06/14/2020 TECHNIQUE: 3 radiographs of left shoulder dated 06/14/2020. FINDINGS: Postsurgical changes identified within the cervical spine. Central venous catheter identified overlying the right neck and chest. Loop recorder overlying left chest. Post surgical changes within the left shoulder. No acute fracture or dislocation. No destructive osseous process. IMPRESSION: Postsurgical changes without acute osseous abnormality. Dictated by: Dictated on workstation # [id number]
--- NOTE | 2020-06-15 10:28 | Diagnostic Imaging Report ---
PROCEDURE: CT head and CT cervical spine without contrast. TECHNIQUE: Multiple contiguous axial images were obtained through the brain and cervical spine without the use of intravenous contrast. Sagittal and coronal reformations through the cervical spine were then performed. Auto Exposure Controls were utilized during the CT exam to meet ALARA standards for radiation dose reduction. INDICATION: Trauma, fall COMPARISON: 05/24/2020 FINDINGS: No intracranial hemorrhage. No intracranial mass, mass effect, midline shift, herniation, hydrocephalus, or extra-axial fluid collection. Periventricular and subcortical white matter hypodensities are again identified, stable from the prior examination and most consistent with mild chronic small vessel white matter ischemic disease. Prominence of the left occipital horn is again identified and stable from the prior examination. Dilated perivascular space versus chronic lacunar infarction within the inferior aspect of the right basal ganglia is again noted, and stable. No intracranial mass, mass effect, midline shift, herniation, hydrocephalus, or extra-axial fluid collection. No CT evidence of an acute ischemic infarction. The orbits are unremarkable. The paranasal sinuses are clear. The calvarium and extracalvarial soft tissues are unremarkable. Anterior plate and screw fixation of C5, C6, and C7 is again identified. The C7 screws are again extending into the C7/T1 disc space. No fractured hardware. Interbody disc device is present at C5/C6. Alignment of the cervical spine is well maintained. Alignment of the atlantooccipital joint is well maintained. Besides the endplate degenerative changes, vertebral body heights are well-maintained. No acute fracture or dislocation. No destructive osseous process. Scattered facet joint degenerative changes. Right IJ central venous catheter is partially visualized. No apical pneumothorax. The suggestion of a 1.5 cm lesion within the left lobe of the thyroid gland. Scattered vascular calcifications. IMPRESSION: 1. No acute intracranial abnormality. 2. No acute osseous abnormality within the cervical spine with postsurgical changes and degenerative changes. 3. Stable background chronic ischemic changes within the brain. 4. Left thyroid nodule. Recommend a nonemergent ultrasound of the thyroid gland for further evaluation if this has not previously been evaluated. Report given to Dr. Yi as the preliminary report did not mention the left thyroid nodule. 10:26 AM 06/15/2020/mariah Dictated by: Dictated on workstation # [id number]
[2020-06-15 12:10] LABS: POTASSIUM 4.4 MMOL/L (3.6-5.0)
[2020-06-15 12:11] LABS: CALCIUM 8.3 MG/DL (8.5-10.1)
[2020-06-15 12:15] LABS: CREATININE SERUM 1.14 MG/DL (0.60-1.30)
[2020-06-15] MEDS ORDERED: GABAPENTIN 400 MG (NEURONTIN) CAP PO ONE (12:15)
[2020-06-15] MEDS: PANTOPRAZOLE 20 MG TABLET (PROTONIX) PO SCH (12:36)
[2020-06-15] MEDS: oxyCODONE/APAP 5/325MG (PERCOCET 5) TABLET PO PRN ×3 (12:36→23:35)
--- NOTE | 2020-06-15 12:44 | NUR ---
fsbs 164, levemir given earlier this AM per dr morales. per dr morales, keep insulin drip on until titrates off or until pt receives hs dose of levemir, whichever happens first.
--- NOTE | 2020-06-15 13:42 | History & Physical-Hospitalist ---
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 She reports that she has been taking her insulin. She said that yesterday morning her blood sugar was elevated. She did try giving herself sliding scale but it kept inc reasing. She says that she has been rotating sites of her injections and has not had any lipodystrophy. She denies any fevers or chills. She denies any shortness of breath or cough. She denies any chest pain. She denies any dysuria. Source: patient Exam Limitations: no limitations Date Seen 06/15/20 Time Seen by a Provider: 08:40 Attending Physician Juan David Bradshaw MD PCP Gerardo Greenwood DO Referring Physician Date of Admission Jun 15, 2020 at 01:22 Home Medications & Allergies Home Medications Reviewed patient Home Medication Reconciliation performed by pharmacy medication reconciliations hydro plant technician and/or nursing. Patients Allergies have been reviewed. Allergies Allergies Coded Allergies ketorolac (Verified Allergy, Severe, ANAPHYLAXIS, PT TAKES ASA AT HOME, 03/06/19) ondansetron (Verified Allergy, Intermediate, RASH, 03/06/19) RASH/ HIVES scopolamine (Verified Allergy, Mild, Rash, 03/21/19) exenatide (Verified Allergy, Unknown, NAUSEA, 03/06/19) NON STOP VOMITING latex (Verified Allergy, Unknown, RASH, 03/06/19) metoclopramide (Verified Allergy, Unknown, RESTLESS LEGS, 03/06/19) erythromycin base (Verified Adverse Reaction, Unknown, 03/21/19) Past Vfkdkws-Cncxse-Lsfxxj Hx Past Med/Social Hx: Reviewed Nursing Past Med/Soc Hx Patient Social History Alcohol Use: Denies Use Number of Drinks Today: Alcohol Beverage of Choice: Wine Recreational Drug Use: Yes Drug of Choice: NARCOTIC ABUSE Smoking Status: Former Smoker Former Smoker, Quit: Nov 10, 2017 Type Used: Cigarettes 2nd Hand Smoke Exposure: No Recent Foreign Travel: No Contact w/other who traveled: No Recent Hopitalizations: No Recent Infectious Disease Expo: No Immunizations Up To Date Tetanus Booster (TDap): Unknown Pediatric: No Date of Pneumonia Vaccine: Nov 06, 2019 Date of Influenza Vaccine: Nov 22, 2019 Seasonal Allergies Seasonal Allergies: Yes Past Medical History Surgeries: Cardiac, Coronary Stent, Ear Surgery, Gallbladder, Orthopedic, Renal Respiratory: Asthma Currently Using CPAP: No Currently Using BIPAP: No Cardiac: Chronic Edema/Swelling, Coronary Artery Disease, Deep Vein Thrombosis, High Cholesterol, Hypertension, Palpitations Neurological: Headaches /Migraines, Neuropathy 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: No Sexually Transmitted Disease: No HIV/AIDS: No 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 Disorders: Denies Menopausal Genitourinary: Bladder Infection, Kidney Stones, Renal Failure Gastrointestinal: Gastroesophageal Reflux, Diverticulosis, Esophagitis, Irritable Bowel Musculoskeletal: Degenerate Disk Disease, Fibromyalgia, Chronic Back Pain Endocrine: Diabetes, Insulin dep HEENT: Chronic Ear Infection Loss of Vision: Bilateral Hearing Impairment: Hard of Hearing Psychosocial: Anxiety Skin/Integumentary: Psoriasis History of Blood Disorders: No Adverse Reaction to Blood Green: No Family History Cancer of mouth 19 FATHER ( of esophogeal cancer.) Cardiovascular disease 19 MOTHER G8 BROTHER Completed stroke 19 FATHER G8 BROTHER Diabetes mellitus G8 BROTHER FH: lung cancer 19 MOTHER Hypertension 19 FATHER Kidney disease 19 FATHER Myocardial infarction 19 MOTHER G8 BROTHER Respiratory disorder No Family History of: AIDS CAD Over 55 Years Old, CVA, Diabetes, GI Disease, Renal Disease PSH: -LINQ DEVICE PLACED 11/09/19 FOR REPORTED PALPITATIONS X 6 MONTHS, SINCE PERCOCET WAS DC'D -MULTIPLE CARDIAC CATHS--STENT X 1 TO LAD 07/13/15. LAST CATH 01/18/19--NO INTERVENTION -LUMBAR SPINE FUSION X 3--12/2002, 04/2007, AND 05/2007 -LUMBAR DISCECTOMY 10/2000--? LAMINECTOMY? -CERVICAL SPINE FUSION 11/2006 -CHOLECYSTECTOMY 1984 -BMT'S -LITHOTRIPSY AND RIGHT URETERAL STENT -EGD'S WITH ESOPHAGEAL DILATION -COLONOSCOPIES, LAST ONE 03/08/19 -PORT RIGHT CHEST -LEFT SHOULDER ROTATOR CUFF REPAIR 05/01/20--DR. PALACIOS Review of Systems Constitutional: dizziness, malaise, weakness EENTM: no symptoms reported Respiratory: no symptoms reported Cardiovascular: no symptoms reported Gastrointestinal: nausea Genitourinary: no symptoms reported Musculoskeletal: no symptoms reported Skin: no symptoms reported Psychiatric/Neurological: No Symptoms Reported Physical Exam Physical Exam Vital Signs Vital Signs - First Documented 06/14/20 06/15/20 21:48 02:45 Temp 36.8 Pulse 75 Resp 17 B/P (MAP) 143/63 (89) Pulse Ox 96 O2 Delivery Room Air O2 Flow Rate 2.00 Capillary Refill : Less Than 3 Seconds Height, Weight, BMI Height: 5'1.00" Weight: 122lbs. 1.0oz. 55.006319sb; 26.00 BMI Method:Estimated General Appearance: No Apparent Distress, WD/WN HEENT: PERRL/EOMI, Pharynx Normal Neck: Normal Inspection, Supple Respiratory: Lungs Clear, Normal Breath Sounds, No Respiratory Distress Cardiovascular: Regular Rate, Rhythm, No Edema, No Murmur Gastrointestinal: Normal Bowel Sounds, Non Tender, Soft Extremity: Normal Inspection, Non Tender, No Pedal Edema Neurologic/Psychiatric: Alert, Oriented x3, No Motor/Sensory Deficits, Normal Mood/Affect Skin: Normal Color, Warm/Dry Results Results/Procedures Labs Laboratory Tests 06/14/20 21:54 06/15/20 03:23 06/15/20 06:34 06/15/20 11:25 Patient resulted labs reviewed. Imaging: Reviewed Imaging Report Assessment/Plan Admission Diagnosis Diabetic ketoacidosis Admission Status: Inpatient Order (span 2 midnights) Reason for Inpatient Admission: DKA requiring IV insulin and fluids Assessment and Plan Diabetic ketoacidosis Ketosis-prone diabetes Acute kidney injury Blood sugar 842 on arrival, serum ketones mildly elevated, bicarbonate mildly decreased Acidosis and hyperglycemia improved this morning Started on insulin GTT, continue Creatinine elevated from baseline Continue IV fluids Begin Levemir 25 units twice daily NovoLog 5 units with meals We'll plan to transition off of the insulin drip today Once off insulin drip, begin sliding scale B HTN Chronic pain Atrial fibrillation Continue home meds Thyroid nodule CT revealed incidental thyroid nodule, outpatient ultrasound evaluation michele mmended DVT prophylaxis: Already receiving therapeutic anticoagulation Diagnosis/Problems Diagnosis/Problems (1) Diabetic ketoacidosis Status: Acute Qualifiers: Diabetes mellitus complication detail: without coma (2) Ketosis-prone diabetes mellitus Status: Chronic (3) Acute kidney injury Status: Acute (4) HTN (hypertension) Status: Chronic Clinical Quality Measures DVT/VTE Risk/Contraindication: Risk Factor Score Per Nursin RFS Level Per Nursing on Admit: 4+=Very High JUAN DAVID BRADSHAW MD Jun 15, 2020 13:42
[2020-06-15 15:27] LABS: POTASSIUM 4.4 MMOL/L (3.6-5.0)
[2020-06-15 15:29] LABS: CALCIUM 7.9 MG/DL (8.5-10.1)
[2020-06-15 15:33] LABS: CREATININE SERUM 1.1 MG/DL (0.60-1.30)
[2020-06-15] MEDS: inSUlin ASPART (NovoLOG) 1 UNIT/0.01 ML (CHARGE PER UNIT) SC SCH ×2 (16:41→20:36)
[2020-06-15 20:13] LABS: POTASSIUM 4.9 MMOL/L (3.6-5.0)
[2020-06-15 20:14] LABS: CALCIUM 7.8 MG/DL (8.5-10.1)
[2020-06-15 20:19] LABS: CREATININE SERUM 1.03 MG/DL (0.60-1.30)
[2020-06-15] MEDS: APIXABAN 5 MG (ELIQUIS) TABLET PO SCH (20:46)
[2020-06-15] MEDS: LACTATED RINGERS 1,000 ML IV SCH (20:47)
[2020-06-15] MEDS: GABAPENTIN 400 MG (NEURONTIN) CAP PO SCH (20:47)
[2020-06-16] VITALS (11 sets, daily range): BP systolic 104–147; BP diastolic 57–82
[2020-06-16 03:07] LABS: BASOPHILS # (AUTO) 0.1 10^3/uL (0.0-0.1); BASOPHILS % (AUTO) 1 % (0-10); EOSINOPHILS # (AUTO) 0.5 10^3/uL (0.0-0.3); EOSINOPHILS % (AUTO) 6 % (0-10); HEMATOCRIT 31 % (35-52); HEMOGLOBIN 10.5 G/DL (11.5-16.0); LYMPHOCYTES # (AUTO) 3.6 X 10^3 (1.0-4.0); LYMPHOCYTES % (AUTO) 39 % (12-44); MEAN CORPUSCULAR HEMOGLOBIN 30 PG (25-34); MEAN CORPUSCULAR HGB CONC 34 G/DL (32-36); MEAN CORPUSCULAR VOLUME 89 FL (80-99); MEAN PLATELET VOLUME 10.6 FL (7.4-10.4); MONOCYTES # (AUTO) 0.4 X 10^3 (0.0-1.0); MONOCYTES % (AUTO) 4 % (0-12); NEUTROPHILS # (AUTO) 4.7 X 10^3 (1.8-7.8); NEUTROPHILS % (AUTO) 51 % (42-75); PLATELET COUNT 203 10^3/uL (130-400); RED CELL DISTRIBUTION WIDTH 14.7 % (10.0-14.5); WHITE BLOOD COUNT 9.2 10^3/uL (4.3-11.0)
[2020-06-16 03:47] LABS: CHLORIDE 114 MMOL/L (98-107); POTASSIUM 4.9 MMOL/L (3.6-5.0); SODIUM 137 MMOL/L (135-145)
[2020-06-16 03:48] LABS: CALCIUM 8.1 MG/DL (8.5-10.1)
[2020-06-16 03:49] LABS: GLUCOSE 149 MG/DL (70-105)
[2020-06-16 03:50] LABS: CARBON DIOXIDE 16 MMOL/L (21-32)
[2020-06-16 03:52] LABS: CREATININE SERUM 0.94 MG/DL (0.60-1.30); GFR ESTIMATED > 60; PHOSPHORUS 2.9 MG/DL (2.3-4.7)
[2020-06-16 03:53] LABS: BUN/CREATININE RATIO 28
[2020-06-16 03:55] LABS: MAGNESIUM 1.5 MG/DL (1.6-2.4)
[2020-06-16] MEDS: POTASSIUM CL 10MEQ/50ML IVPB 50 ML IV SCH (04:10)
[2020-06-16] MEDS: KCL 20 MEQ TAB (K-DUR) PO SCH (04:11)
[2020-06-16] MEDS: MAGNESIUM 1 GM/100 ML IVPB 100 ML IV SCH ×3 (04:13→05:55)
[2020-06-16] MEDS: inSUlin ASPART (NovoLOG) 1 UNIT/0.01 ML (CHARGE PER UNIT) SC SCH ×7 (04:13→22:02)
[2020-06-16] MEDS: oxyCODONE/APAP 5/325MG (PERCOCET 5) TABLET PO PRN ×4 (04:54→22:02)
--- NOTE | 2020-06-16 06:35 | Diagnostic Imaging Report ---
EXAM: Portable erect AP chest at 3:30 AM INDICATION: Fell FINDINGS: The heart size is within normal limits and stable when compared to 05/24/2020. The loop recorder device noted previously is again evident. The Port-A-Cath on the right and the orthopedic hardware overlying the lower cervical spine and the surgical screw in the greater tuberosity of the left humerus are also unchanged when compared to the prior study. The lungs remain generally clear. There is still no sign of failure, pneumonia or of pleural effusion. The mediastinum is not widened. IMPRESSION: Stable chest. There has been no adverse change since the prior exam. Dictated by: Dictated on workstation # [id number]
[2020-06-16] MEDS: LACTATED RINGERS 1,000 ML IV SCH ×2 (06:39→07:01)
[2020-06-16] MEDS: ASPIRIN E.C. 81 MG (ECOTRIN) TAB PO SCH (08:16)
[2020-06-16] MEDS: PANTOPRAZOLE 20 MG TABLET (PROTONIX) PO SCH (08:16)
[2020-06-16] MEDS: GABAPENTIN 400 MG (NEURONTIN) CAP PO SCH ×2 (08:16→22:02)
[2020-06-16] MEDS: APIXABAN 5 MG (ELIQUIS) TABLET PO SCH ×2 (08:16→22:02)
--- NOTE | 2020-06-16 13:23 | NUR ---
PT TRANSFERRED TO ROOM 409 VIA WC W/ STAFF AND PERSONAL BELONGINGS. REPORT GIVEN TO LISA SÁNCHEZ, NO QUESTIONS/CONCERNS VOICED.
--- NOTE | 2020-06-16 13:30 | NUR ---
TRANSFERRED FROM ICU TO ROOM 409. ALERT AND COOPERATIVE. SKIN W/D. RESP. REGULAR. LUNGS CLEAR. HEART RATE REGULAR. C/O OF LEFT SHOULDER PAIN FROM HAVING SURGERY (ROTATOR CUFF PER DR. PALACIOS) ON April. INC. AREA HEALED. NO REDNESS OR SWELLING NOTED AT SITE. NO PEDAL EDEMA NOTED. RIGHT GROSHONG WITH LR AT 100CC/HR. SITE TO RIGHT GROSHONG CLEAR. ABRASIONS TO BOTH KNEES IN PLACE.
--- NOTE | 2020-06-16 14:07 | Progress Note - Hospitalist ---
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 She reports that she has been taking her insulin. She said that yesterday morning her blood sugar was elevated. She did try giving herself sliding scale but it kept increasing. She says that she has been rotating sites of her injections and has not had any lipodystrophy. She denies any fevers or chills. She denies any shortness of breath or cough. She denies any chest pain. She denies any dysuria. Subjective/Events-last exam She is feeling weak. She reports some nausea. She denies any fevers or chills. She denies any shortness of breath or cough. She denies any chest pain. She denies any abdominal pain. She has no other complaints or concerns. Objective Exam Vital Signs Vital Signs Date Time Temp Pulse Resp B/P (MAP) Pulse Ox O2 Delivery O2 Flow Rate FiO2 06/16/20 13:28 37.9 78 16 121/78 (92) 98 Room Air 06/15/20 03:00 2.00 Capillary Refill : Less Than 3 Seconds General Appearance: No Apparent Distress, WD/WN Respiratory: Lungs Clear, Normal Breath Sounds, No Respiratory Distress Cardiovascular: Regular Rate, Rhythm, No Edema, No Murmur Gastrointestinal: Normal Bowel Sounds, Non Tender, Soft Extremity: Normal Inspection, Non Tender, No Pedal Edema Neurologic/Psychiatric: Alert, Oriented x3, Depressed Affect, Motor Weakness Skin: Normal Color, Warm/Dry Results/Procedures Lab Laboratory Tests 06/15/20 15:00 06/15/20 19:45 06/16/20 02:52 Patient resulted labs reviewed. Imaging: Reviewed Imaging Report Assessment/Plan Assessment and Plan Assess & Plan/Chief Complaint Ketosis-prone diabetes Transitioned off insulin drip Continue Levemir 20 units twice daily Continue NovoLog 5 units with meals Continue sliding scale Debility PT/OT HTN Chronic pain Atrial fibrillation Continue home meds Thyroid nodule CT revealed incidental thyroid nodule, outpatient ultrasound evaluation recommended DVT prophylaxis: Already receiving therapeutic anticoagulation Diabetic ketoacidosis, resolved Acute kidney injury, resolved Diagnosis/Problems Diagnosis/Problems (1) Diabetic ketoacidosis Status: Resolved Qualifiers: Diabetes mellitus complication detail: without coma Resolution Date/Time: 06/16/20 @ 14:06 (2) Ketosis-prone diabetes mellitus Status: Chronic (3) Acute kidney injury Status: Resolved Resolution Date/Time: 06/16/20 @ 14:06 (4) HTN (hypertension) Status: Chronic (5) Debility Status: Acute Clinical Quality Measures DVT/VTE Risk/Contraindication: Risk Factor Score Per Nursin RFS Level Per Nursing on Admit: 4+=Very High JUAN DAVID BRADSHAW MD Jun 16, 2020 14:07
--- NOTE | 2020-06-16 16:33 | NUR ---
BLOOD SUGAR 59. HELD SCHEDULED INSULIN. ORANGE JUICE AND VIVI CRACKERS GIVEN TO PT. DENIES SYMPTOMS.
[2020-06-16] MEDS: PROMETHAZINE INJ 25 MG/ML (PHENERGAN) AMP IV PRN (22:03)
[2020-06-16] MEDS: diphenhydrAMINE 50 MG/ML INJ (BENADRYL) IV PRN (22:03)
[2020-06-17] VITALS: BP 171/82
[2020-06-17] MEDS: LACTATED RINGERS 1,000 ML IV SCH (01:39)
[2020-06-17] MEDS: oxyCODONE/APAP 5/325MG (PERCOCET 5) TABLET PO PRN ×4 (03:50→19:23)
[2020-06-17 04:00] VITALS: BP 167/78
[2020-06-17 05:10] LABS: BASOPHILS # (AUTO) 0.1 10^3/uL (0.0-0.1); BASOPHILS % (AUTO) 1 % (0-10); EOSINOPHILS # (AUTO) 0.5 10^3/uL (0.0-0.3); EOSINOPHILS % (AUTO) 6 % (0-10); HEMATOCRIT 33 % (35-52); HEMOGLOBIN 10.7 G/DL (11.5-16.0); LYMPHOCYTES % (AUTO) 33 % (12-44); MEAN CORPUSCULAR HEMOGLOBIN 29 PG (25-34); MEAN CORPUSCULAR HGB CONC 33 G/DL (32-36); MEAN CORPUSCULAR VOLUME 90 FL (80-99); MEAN PLATELET VOLUME 10.9 FL (7.4-10.4); MONOCYTES # (AUTO) 0.5 X 10^3 (0.0-1.0); MONOCYTES % (AUTO) 5 % (0-12); NEUTROPHILS # (AUTO) 5.2 X 10^3 (1.8-7.8); NEUTROPHILS % (AUTO) 56 % (42-75); PLATELET COUNT 206 10^3/uL (130-400); RED CELL DISTRIBUTION WIDTH 14.7 % (10.0-14.5); WHITE BLOOD COUNT 9.2 10^3/uL (4.3-11.0)
[2020-06-17 05:25] LABS: POTASSIUM 4.3 MMOL/L (3.6-5.0)
[2020-06-17 05:26] LABS: CALCIUM 8.5 MG/DL (8.5-10.1)
[2020-06-17 05:30] LABS: CREATININE SERUM 1.02 MG/DL (0.60-1.30)
[2020-06-17] MEDS: inSUlin ASPART (NovoLOG) 1 UNIT/0.01 ML (CHARGE PER UNIT) SC SCH ×4 (05:50→20:47)
--- NOTE | 2020-06-17 06:34 | NUR ---
0536- LAB CALLED WITH CRITICAL BLOOD SUGAR OF 50. PT UNSYMPTOMATIC. HYPOGLYCEMIC PROTOCOL FOLLOWED. PT GIVEN 8 OZ OF ORANGE JUICE AND CRACKERS WITH PEANUT BUTTER. 0550- BLOOD SUGAR 53 PER FINGERSTICK. PT ENCOURAGED TO CONTINUE DRINKING ORANGE JUICE AND CRACKERS. INFORMED PT THAT THIS RN WILL RECHECK BLOOD SUGAR. 0634- RECHECKED BLOOD SUGAR PER FINGERSTICK. BLOOD SUGAR 140 AT THIS TIME.
[2020-06-17 07:30] VITALS: BP 129/64
[2020-06-17] MEDS: ASPIRIN E.C. 81 MG (ECOTRIN) TAB PO SCH (08:41)
[2020-06-17] MEDS: PANTOPRAZOLE 20 MG TABLET (PROTONIX) PO SCH (08:41)
[2020-06-17] MEDS: APIXABAN 5 MG (ELIQUIS) TABLET PO SCH ×2 (08:41→20:46)
[2020-06-17] MEDS: GABAPENTIN 400 MG (NEURONTIN) CAP PO SCH ×2 (08:41→20:46)
--- NOTE | 2020-06-17 09:05 | Occupational Therapy Eval ---
OT Evaluation-General/PLF Medical Diagnosis Admission Date Jun 15, 2020 at 01:22 Medical Diagnosis: hyperglycemia; s/p falls Onset Date: Jun 16, 2020 Therapy Diagnosis Therapy Diagnosis: Decreased ADL status Height/Weight Height (Feet): 5 Height (Inches): 1.00 Weight (Pounds): 122 Weight (Ounces): 1.0 Precautions Precautions/Isolations: Fall Prevention, Standard Precautions Referral Physician: Lluu Yi MD Referral Reason: Activity Tolerance, Self Care, Evaluation/Treatment, Strengthening/ROM Medical History Pertinent Medical History: Alcoholism, CAD, DM, HTN, Neuropathy, Smoking Additional Medical History IDDM, ketosis prone DM, narcotic abuse, chronic edema, CAD, DVT hx, HTN, palpitations, [place], anxiety, psoriasis. Current History Pt admits to ED with c/o falls, hyperglycemia Reviewed History: Yes Social History Home: Apartment ([facility] ) Current Living Status: Alone Entry Into Home: Elevator ADL-Prior Level of Function SCALE: Activities may be completed with or without assistive devices. 8-Fwvgpjdvyv-vptbnry completes the activity by him/herself with no assistance from a helper. 5-Set-up or Clean-up Assistance-helper sets up or cleans up; patient completes activity. Lima assists only prior to or following the activity. 4-Supervision or Touching Assistance-helper provides verbal cues and/or touching/steadying and/or contact guard assistance as patient completes activity. Assistance may be provided throughout the activity or intermittently. 3-Partial/Moderate Assistance-helper does LESS THAN HALF the effort. Lima lifts, holds or supports trunk or limbs, but provides less than half the effort. 2-Substantial/Maximal Assistance-helper does MORE THAN HALF the effort. Lima lifts or holds trunk or limbs and provides more than half the effort. 5-Oipnlinqo-lmmccb does ALL the effort. Patient does none of the effort to complete the activity. Or, the assistance of 2 or more helpers is required for the patient to complete the activity. If activity was not attempted, code reason: 7-Patient Refused. 9-Not Applicable-not attempted and the patient did not perform the activity before the current illness, exacerbation or injury. 10-Not Attempted due to Environmental Limitations-(lack of equipment, weather restraints, etc.). 88-Not Attempted due to Medical Conditions or Safety Concerns. ADL PLOF Comments Pt states is IND with ADLs with use of SPC/ 4WW. IADLs with assist. Pt states has downstairs neighbor who can check in on pt during the day Self Care: Independent Functional Cognition: Independent DME/Equipment: Grab Bars, Tub/Shower DME/Equipment Comments 4WW, tub/ shower, grab bars in shower, standard toilet. Occupation: retired. Drive Self: No OT Current Status Subjective Pt seen in recliner, states has been, "Tired and disoriented this morning." Pt oriented x3, requires min cues through session to keep eyes open. Pt states ambulated from bed to chair with assist this am. Pt denies dizzy/ pain. Pt agrees to OT tx session. Mental Status/Objective Patient Orientation: Person, Place, Situation, Normal For Age Attachments: IV Current Glasses/Contacts: Yes Hearing Aids: No Dentures/Partials: No Upper Extremity ROM Limited L shoulder flexion to 90* R WFL all planes. Upper Extremity Coordination WFL BUE Upper Extremity Sensation WFL, pt no c/o paresthesias. Upper Extremity Strength Decreased bilaterally: L shoulder flexion 2+/ 5 R shoulder flexion: 3/5 Biceps bilaterally: 4/5 with cues for correct position. ADL-Treatment Eating (QC): 6 Lower Body Dressing (QC): 4 On/Off Footwear (QC): 5 (s/u flippers, completes in sit. ) Other Treatments Pt agrees to OT eval/ treat. Pt educated on OT role. Pt states hx of falls, states has been using 4WW at home/ in community, has been walking with walker to OP PT for RTC surg tx. Pt states falls in community as well as home. Pt states she recently fell on L side and believes she re-tore L RTC. Pt completes AROM to ~90* L side and ~120* R, pt is encouraged to continue with R side and reaches ~160*. Pt later states she believes she tore R RTC as well during fall. Pt unable to complete eye drop management into eyes, requires max A from OT due to lack of fx AROM of LUE. Pt states completes this 3x per day. Pt does not know reason of falls, pt completes eye tracking in all planes, cervical motion in all planes. Pt states no sx, then when questioned agrees to being slightly dizzy. Pt encouraged to complete AROM to ~90* shoulder flexion/ scaption bilaterally here. During bicep MMT pt requires increased cues for correct positioning/ task completion. Pt completes footwear in chair, stands with 2WW with SBA, completes unilateral then bimanual tasks without use of walker for support with CGA. Pt completes reaching to knees in stance with BUE and pulls up to hips to resemble LB dressing without LOB/ CGA throughout. Pt would benefit from continued skilled OT for functional balance/ UB strengthening/ home modification education for safe return home. Pt agrees, returns to sit, all needs met, call light in reach. Pt able to find phone and begin dialing to call OP PT to cancel session this day. Education OT Patient Education: Exercise program, Home exercise program, Purpose of tx/functional activities, Safety issues Teaching Recipient: Patient Teaching Methods: Demonstration, Discussion Response to Teaching: Verbalize Understanding, Return Demonstration OT Fiscal Agent Goals Usp Goals Time Frame: Jun 24, 2020 Eating (QC): 6 Oral Hygiene (QC): 6 Toileting Hygiene (QC): 6 Shower/Bathe Self (QC): 6 Upper Body Dressing (QC): 6 Lower Body Dressing (QC): 6 On/Off Footwear (QC): 6 Additional Goals: 1-Demonstrate ADL Tasks, 2-Verbalize Understanding, 3- ImproveStrength/Yue 1=Demonstrate adherence to instructed precautions during ADL tasks. 2=Patient will verbalize/demonstrate understanding of assistive devices/modifications for ADL. 3=Patient will improve strength/tolerance for activity to enable patient to perform ADL's. OT Education/Plan Problem List/Assessment Assessment: Decreased Activ Tolerance, Decreased UE Strength, Dependent Transfers, Impaired Funct Balance, Impaired I ADL's, Impaired Self-Care Skills Discharge Recommendations Plan/Recommendations: Continue POC Therapy Discharge Recommendati: Intermittent Supervision Equpiment Recommendations-D/C: Toilet Riser with Rails, Bath Chair Treatment Plan/Plan of Care Treatment,Training & Education: Yes Patient would benefit from OT for education, treatment and training to promote independence in ADL's, mobility, safety and/or upper extremity function for ADL's. Plan of Care: ADL Retraining, Functional Mobility, UE Funct Exercise/Act Treatment Duration: Jun 24, 2020 Frequency: 5 times per week Estimated Hrs Per Day: .25 hour per day Agreement: Yes Rehab Potential: Fair Time/GCodes Start Time: 08:30 Stop Time: 08:50 Total Time Billed (hr/min): 20 Billed Treatment Time 1, EVL (20) FRANKI SHARP OTR Jun 17, 2020 09:04
[2020-06-17] MEDS ORDERED: INSU100I14 SC (10:22)
[2020-06-17] MEDS ORDERED: MELA5TAB14 PO (10:22)
[2020-06-17] MEDS ORDERED: GLYC1DRO OU (10:22)
[2020-06-17] MEDS ORDERED: DIPH25TA65 PO (10:22)
--- NOTE | 2020-06-17 11:09 | NUR ---
SPOKE WITH THE PT AND WENT THRU THE EXT MED HISTORY TO COMPLETE THE MED REC ATORVASTATIN 10MG LAST FILLED 01-03-2020 #60- PT SAID SHE HAD STOPPED TAKING FOR AWHILE BUT IS CURRENTLY TAKING IT AGAIN- I DID DOCUMENT THE PAST DUE FILL ON THE MED REC OTC MEDS: MELATONIN ASPIRIN 81 BENADRYL PRN SOOTHE EYE DROPS
--- NOTE | 2020-06-17 11:09 | Progress Note - Hospitalist ---
Subjective HPI/CC On Admission Date Seen by Provider: Jun 17, 2020 Time Seen by Provider: 11:06 Itzel Urbano is a 60-year-old female with past medical history of ketosis-prone diabetes who presented with alcohol recent falls and hyperglycemia. She reports that she has been taking her insulin. She said that yesterday morning her blood sugar was elevated. She did try giving herself sliding scale but it kept increasing. She says that she has been rotating sites of her injections and has not had any lipodystrophy. She denies any fevers or chills. She denies any shortness of breath or cough. She denies any chest pain. She denies any dysuria. Subjective/Events-last exam Pt reports feeling better but still weak. Feels like she will fall is she gets up. Has worked with OT but not PT yet. Objective Exam Vital Signs Vital Signs Date Time Temp Pulse Resp B/P (MAP) Pulse Ox O2 Delivery O2 Flow Rate FiO2 06/17/20 09:00 96 Room Air 06/17/20 07:30 37.0 75 20 129/64 (85) 06/15/20 03:00 2.00 Capillary Refill : Less Than 3 Seconds General Appearance: No Apparent Distress, Chronically ill Respiratory: Lungs Clear, No Respiratory Distress Cardiovascular: Regular Rate, Rhythm, No Murmur Gastrointestinal: Normal Bowel Sounds, Non Tender, Soft Neurologic/Psychiatric: Alert, Oriented x3 Results/Procedures Lab Laboratory Tests 06/17/20 04:55 Patient resulted labs reviewed. Imaging: Reviewed Imaging Report Assessment/Plan Assessment and Plan Assess & Plan/Chief Complaint Ketosis-prone diabetes labile blood sugars, decrease basal insulin today Switch to Levemir 15 units twice daily Continue NovoLog 5 units with meals Continue sliding scale Debility PT/OT - IRU eval - Established with [facility] HTN Chronic pain Atrial fibrillation Continue home meds Thyroid nodule CT revealed incidental thyroid nodule, outpatient ultrasound evaluation recommended DVT prophylaxis: Already receiving therapeutic anticoagulation Diabetic ketoacidosis, resolved Acute kidney injury, resolved Diagnosis/Problems Diagnosis/Problems (1) Type I diabetes mellitus with ketoacidosis Status: Acute (2) Hypomagnesemia Status: Resolved Resolution Date/Time: 10/05/18 @ 14:16 (3) Acute kidney injury superimposed on chronic kidney disease Status: Acute Clinical Quality Measures DVT/VTE Risk/Contraindication: Risk Factor Score Per Nursin RFS Level Per Nursing on Admit: 4+=Very High GERARDO RITTER MD Jun 17, 2020 11:09
--- NOTE | 2020-06-17 11:31 | Physical Therapy Evaluation ---
PT Evaluation-General Medical Diagnosis Admission Date Jun 15, 2020 at 01:22 Medical Diagnosis: hyperglycemia; s/p falls Onset Date: Jun 16, 2020 Therapy Diagnosis Therapy Diagnosis: debility/weakness Height/Weight Height (Feet): 5 Height (Inches): 1.00 Weight (Pounds): 122 Weight (Ounces): 1.0 Precautions Precautions/Isolations: Fall Prevention, Standard Precautions Weight Bear Status Right Lower Extremity: Right Weight Bearing/Tolerated Left Lower Extremity: Left Weight Bearing/Tolerated Referral Physician: Lulu Yi MD Reason for Referral: Evaluation/Treatment Medical History Pertinent Medical History: Alcoholism, CAD, DM, HTN, Neuropathy, Renal Insufficiency, Smoking Additional Medical History narcotic abuse Current History EMS secondary to hyperglycemia and fall/recent dismissal from secondary to hyperglycemia Reviewed History: Yes Social History Home: Apartment ([facility] ) Current Living Status: Alone Entry Into Home: Elevator Prior Prior Level of Function SCALE: Activities may be completed with or without assistive devices. 3-Ioswvmszbt-dbroytv completes the activity by him/herself with no assistance from a helper. 5-Set-up or Clean-up Assistance-helper sets up or cleans up; patient completes activity. [place] assists only prior to or following the activity. 4-Supervision or Touching Assistance-helper provides verbal cues and/or touching/steadying and/or contact guard assistance as patient completes act ivity. Assistance may be provided throughout the activity or intermittently. 3-Partial/Moderate Assistance-helper does LESS THAN HALF the effort. [place] lifts, holds or supports trunk or limbs, but provides less than half the effort. 2-Substantial/Maximal Assistance-helper does MORE THAN HALF the effort. [place] lifts or holds trunk or limbs and provides more than half the effort. 5-Eqpyvgyqe-jpldef does ALL the effort. Patient does none of the effort to complete the activity. Or, the assistance of 2 or more helpers is required for the patient to complete the activity. If activity was not attempted, code reason: 7-Patient Refused. 9-Not Applicable-not attempted and the patient did not perform the activity before the current illness, exacerbation or injury. 10-Not Attempted due to Environmental Limitations-(lack of equipment, weather restraints, etc.). 88-Not Attempted due to Medical Conditions or Safety Concerns. Bed Mobility: 6 Transfers (B,C,W/C): 6 Gait: 6 Stairs: 9 Indoor Mobility (Ambulation): Independent Stairs: Not [place]lical[place] Prior Devices Use: Walker (4WW) PT Evaluation-Current Subjective Patient agrees to PT. No c/o. Pain Numeric Pain Scale: 0-No Pain Location: No Pain Reported Objective Patient Orientation: Normal For Age ROM/Strength ROM Lower Extremities bilateral LE WFL Strength Lower Extremities 4-/5 grossly bilateral LE Integumentary/Posture Integumentary refer to nursing notes. Bowel Incontinence: No Bladder Incontinence: No Posture trunk flexed posture in stand Neuromuscular (Tone, Coordination, Reflexes) diminished coordination due to inactivity Sensory Vision: Wears Glasses Hearing: Functional Sensation Right Lower Extremit: Impaired Sensation Left Lower Extremity: Impaired Transfers Roll Left to Right (QC): 6 Sit to Lying (QC): 6 Lying to Sitting/Side of Bed(Q: 6 Sit to Stand (QC): 5 Chair/Tao-um-Pzyat Xfer(QC): 5 Toilet Transfer (QC): 5 Gait Does the Patient Walk?: Yes Mode of Locomotion: Walk Anticipated Mode of Locomotion: Walk Walk 10 feet (QC): 5 Walk 50 ft with 2 Turns(QC): 5 Walk 150 ft (QC): 5 Distance: 300' Gait Assistive Device: FWW Comments/Gait Description steady, functional gait sequence Balance Sitting Static: Normal Sitting Dynamic: Normal Standing Static: Fair Standing Dynamic: Fair Assessment/Needs 60 y.o. female, will be seen short term by skilled PT to address functional strength and mobility to ensure safe return to home at maximum LOF. Rehab Potential: Fair Post Rehab Potential-Barriers: compliance PT Network Operations Center Engineer Goals Network Operations Center Engineer Goals PT Jail Goals Time Frame: Jun 29, 2020 Roll Left & Right (QC): 6 Sit to Lying (QC): 6 Lying-Sitting on Side/Bed(QC): 6 Sit to Stand (QC): 6 Chair/Nas-bk-Fogth Xfer(QC): 6 Toilet Transfer (QC): 6 Does the Patient Walk: Yes Walk 10 feet (QC): 6 Walk 50ft with 2 Turns (QC): 6 Walk 150 ft (QC): 6 PT Plan Problem List Problem List: Activity Tolerance, Functional Strength, Safety, Balance, Gait, Transfer Treatment/Plan Treatment Plan: Continue Plan of Care Treatment Plan: Education, Functional Activity Yue, Functional Strength, Gait, Safety, Therapeutic Exercise, Transfers Treatment Duration: Jun 29, 2020 Frequency: 6 times per week Estimated Hrs Per Day: .25 hour per day Patient and/or Family Agrees t: Yes Time/GCodes Time In: 1037 Time Out: 1050 Total Billed Treatment Time: 13 Total Billed Treatment 1 visit EVModC 13 min KELVIN CALVO PT Jun 17, 2020 11:30
[2020-06-17 11:58] VITALS: BP 152/78
[2020-06-17 15:22] VITALS: BP 151/79
--- NOTE | 2020-06-17 15:36 | NUR ---
RD ASSESSMENT PMHx: DM; CAD; DVT; hypercholesterolemia; polysubstance use/abuse (ETOH, narcotics); HTN; GERD; renal failure; esophagitis; diverticulosis; irritable bowel PT INTERACTION: Pt was awake and pleasant during nutrition assessment. Pt states current appetite is "so-so" and that it had been this way for quite a while. Note avg PO intake of 25-50% x2d, per chart review. Pt states following a low-CHO diet at home, and has some issues with chewing food, as she is missing several teeth per visual assessment. Pt states some recent issues with nausea, vomiting, and diarrhea. Note last BM was 06/15, and pt currently not on bowel regimen per chart review. Pt states wt has gone up and down in the last 6mon. Note recent 18# wt gain x4mon, per chart review. Pt states current DM management is "pretty poor." Pt states some mornings where blood glucose levels are really low and some days where it is really high. Note unable to determine recent HbA1c, per chart review. ABNORMAL NUTRITION-RELATED LAB VALUES LOW: HIGH:Cl 112 Est. kcal needs: 1350 kcal | 20 kcal/kg Est. Pro needs: 54 g Pro | 0.8 g Pro/kg PES STATEMENT: Inadequate oral intake (NI-2.1) related to loss of appetite | nausea | vomiting | diarrhea as evidenced by pt interview | avg PO intake 25-50% x2d INTERVENTION: Continue with current diet order of CHO 60g/m 0snack diet. Pt may benefit from nutrition supplementation if PO intake remains low. Discussed and provided diet education on DM management. Discussed CHO counting and appropriate CHO amounts at meal times. Pt verbalized understanding of information provided. Encouraged pt to eat when able. Will continue to follow and reassess as pt needs, intake, and status change. MONITOR/EVALUATE: PO Intake; Plan of Care; Hydration Status; Weight Status; Lab Values Sue Isaac, MS, RD, LD
[2020-06-17 19:11] VITALS: BP 138/64
--- NOTE | 2020-06-17 20:13 | Discharge Inst-Simple/Standard ---
Discharge Inst-Standard Patient Instructions/Follow Up Plan of Care/Instructions/FU: Please continue to take your medications as written. please follow up with your primary care doctor in the next week to follow up this hospital stay. Activity as Tolerated: Yes Discharge Diet: ADA Diet Return to The Hospital For: Chest pain, shortness of breath, fever, confusion, very high or very low blood sugars that you cannot control at home, if you feel you are getting worse. GERARDO RITTER MD Jun 17, 2020 20:13
[2020-06-17] MEDS: diphenhydrAMINE 50 MG/ML INJ (BENADRYL) IV PRN (21:40)
[2020-06-17] MEDS: PROMETHAZINE INJ 25 MG/ML (PHENERGAN) AMP IV PRN (21:50)
[2020-06-18 00:05] VITALS: BP 184/81
[2020-06-18] MEDS: oxyCODONE/APAP 5/325MG (PERCOCET 5) TABLET PO PRN ×3 (02:01→09:55)
[2020-06-18 04:25] VITALS: BP 189/80
[2020-06-18] MEDS: inSUlin ASPART (NovoLOG) 1 UNIT/0.01 ML (CHARGE PER UNIT) SC SCH ×2 (05:41→12:32)
[2020-06-18] MEDS: diphenhydrAMINE 50 MG/ML INJ (BENADRYL) IV PRN (05:45)
[2020-06-18] MEDS: PROMETHAZINE INJ 25 MG/ML (PHENERGAN) AMP IV PRN (05:55)
[2020-06-18 05:59] LABS: BASOPHILS # (AUTO) 0.1 10^3/uL (0.0-0.1); BASOPHILS % (AUTO) 1 % (0-10); EOSINOPHILS # (AUTO) 0.6 10^3/uL (0.0-0.3); EOSINOPHILS % (AUTO) 5 % (0-10); HEMATOCRIT 34 % (35-52); HEMOGLOBIN 11.2 G/DL (11.5-16.0); LYMPHOCYTES # (AUTO) 2.7 X 10^3 (1.0-4.0); LYMPHOCYTES % (AUTO) 23 % (12-44); MEAN CORPUSCULAR HEMOGLOBIN 30 PG (25-34); MEAN CORPUSCULAR HGB CONC 33 G/DL (32-36); MEAN CORPUSCULAR VOLUME 91 FL (80-99); MONOCYTES # (AUTO) 0.6 X 10^3 (0.0-1.0); MONOCYTES % (AUTO) 5 % (0-12); NEUTROPHILS # (AUTO) 7.7 X 10^3 (1.8-7.8); NEUTROPHILS % (AUTO) 66 % (42-75); PLATELET COUNT 191 10^3/uL (130-400); RED CELL DISTRIBUTION WIDTH 14.6 % (10.0-14.5); WHITE BLOOD COUNT 11.7 10^3/uL (4.3-11.0)
[2020-06-18 06:09] LABS: POTASSIUM 4.7 MMOL/L (3.6-5.0)
[2020-06-18 06:10] LABS: CALCIUM 8.9 MG/DL (8.5-10.1)
[2020-06-18 08:00] VITALS: BP 195/84
[2020-06-18] MEDS: GABAPENTIN 400 MG (NEURONTIN) CAP PO SCH (08:54)
[2020-06-18] MEDS: APIXABAN 5 MG (ELIQUIS) TABLET PO SCH (08:54)
[2020-06-18] MEDS: ASPIRIN E.C. 81 MG (ECOTRIN) TAB PO SCH (08:54)
[2020-06-18] MEDS: PANTOPRAZOLE 20 MG TABLET (PROTONIX) PO SCH (08:54)
--- NOTE | 2020-06-18 09:09 | Physical Therapy Daily Note ---
PT Daily Note-Current Subjective Patient agrees to PT. Mental Status Patient Orientation: Person, Time, Situation Transfers SCALE: Activities may be completed with or without assistive devices. 0-Dzrnslbtgz-pnazbqq completes the activity by him/herself with no assistance from a helper. 5-Set-up or Clean-up Assistance-helper sets up or cleans up; patient completes activity. [place] assists only prior to or following the activity. 4-Supervision or Touching Assistance-helper provides verbal cues and/or touching/steadying and/or contact guard assistance as patient completes activity. Assistance may be provided throughout the activity or intermittently. 3-Partial/Moderate Assistance-helper does LESS THAN HALF the effort. [place] lifts, holds or supports trunk or limbs, but provides less than half the effort. 2-Substantial/Maximal Assistance-helper does MORE THAN HALF the effort. [place] lifts or holds trunk or limbs and provides more than half the effort. 0-Yvsecrwvr-qrztoz does ALL the effort. Patient does none of the effort to c omplete the activity. Or, the assistance of 2 or more helpers is required for the patient to complete the activity. If activity was not attempted, code reason: 7-Patient Refused. 9-Not Applicable-not attempted and the patient did not perform the activity before the current illness, exacerbation or injury. 10-Not Attempted due to Environmental Limitations-(lack of equipment, weather restraints, etc.). 88-Not Attempted due to Medical Conditions or Safety Concerns. Roll Left & Right (QC): 6 Lying to Sitting/Side of Bed(Q: 6 Sit to Stand (QC): 5 Chair/Srs-xu-Qjmev Xfer(QC): 5 Weight Bearing Right Lower Extremity: Right Weight Bearing/Tolerated Left Lower Extremity: Left Weight Bearing/Tolerated Gait Training Does the Patient Walk?: Yes Distance: 300' Walk 10 feet (QC): 5 Walk 50 ft with 2 Turns(QC): 5 Walk 150 ft (QC): 5 Gait Assistive Device: Cane Single Point improved gait sequence with cane use/slow, steady gait Exercises Supine Ex: Ankle pumps, Quad Set, Heel Slides, Straight leg raise Supine Reps: 12 Seated Therapy Exercises: Ankle pumps, Long arc quads Seated Reps: 12 Assessment Patient tolerated treatment and is up in recliner with needs met. PT to continue to address gross motor skills as tolerated by patient. PT Intermediate Goals Glass Inserter Goals PT Glass Inserter Goals Time Frame: Jun 29, 2020 Roll Left & Right (QC): 6 Sit to Lying (QC): 6 Lying-Sitting on Side/Bed(QC): 6 Sit to Stand (QC): 6 Chair/Nfw-wz-Qmjlm Xfer(QC): 6 Toilet Transfer (QC): 6 Does the Patient Walk: Yes Walk 10 feet (QC): 6 Walk 50ft with 2 Turns (QC): 6 Walk 150 ft (QC): 6 PT Plan Treatment/Plan Treatment Plan: Continue Plan of Care Treatment Plan: Education, Functional Activity Yue, Functional Strength, Gait, Safety, Therapeutic Exercise, Transfers Treatment Duration: Jun 29, 2020 Frequency: 6 times per week Estimated Hrs Per Day: .25 hour per day Patient and/or Family Agrees t: Yes Time/GCodes Time In: 839 Time Out: 902 Total Billed Treatment Time: 23 Total Billed Treatment 1 visit EX 12 min GT 11 min KELVIN CALVO PT Jun 18, 2020 09:09
--- NOTE | 2020-06-18 10:39 | Discharge Summary ---
Diagnosis/Chief Complaint Date of Admission Jun 15, 2020 at 01:22 Date of Discharge Discharge Date: Jun 18, 2020 Admission Diagnosis Diabetic ketoacidosis Primary Care Gerardo Greenwood DO Discharge Diagnosis (1) Type I diabetes mellitus with ketoacidosis Status: Acute (2) Hypomagnesemia Status: Resolved (3) Acute kidney injury superimposed on chronic kidney disease Status: Acute Discharge Summary Discharge Physical Exam Allergies: Coded Allergies: ketorolac (Verified Allergy, Severe, ANAPHYLAXIS, PT TAKES ASA AT HOME, 03/06/19) ondansetron (Verified Allergy, Intermediate, RASH, 03/06/19) RASH/ HIVES scopolamine (Verified Allergy, Mild, Rash, 03/21/19) exenatide (Verified Allergy, Unknown, NAUSEA, 03/06/19) NON STOP VOMITING latex (Verified Allergy, Unknown, RASH, 03/06/19) metoclopramide (Verified Allergy, Unknown, RESTLESS LEGS, 03/06/19) erythromycin base (Verified Adverse Reaction, Unknown, 03/21/19) Vitals & I&Os Vital Signs Date Time Temp Pulse Resp B/P (MAP) Pulse Ox O2 Delivery O2 Flow Rate FiO2 06/18/20 12:10 36.4 74 20 195/84 97 Room Air 06/18/20 09:00 2.00 General Appearance: No Apparent Distress, WD/WN Respiratory: Lungs Clear, No Respiratory Distress Cardiovascular: Regular Rate, Rhythm, No Murmur Gastrointestinal: Normal Bowel Sounds, Non Tender, Soft Neurologic/Psychiatric: Alert, Oriented x3 Hospital Course Pt was admitted due to DKA and was treated in the ICU with insulin gtt. She did well and was quickly titrated off and transitioned to bolus insulin. She had an otherwise uneventful hospital stay and was discharged home in stable condition to continue with PT as an outpatient as already ordered. She is to follow up with Dr Greenwood. I did called and update him regarding this hospital stay. Labs (last 24 hrs) Laboratory Tests 06/18/20 05:32: Glucometer 64L 06/18/20 05:50: White Blood Count 11.7H, Red Blood Count 3.73L, Hemoglobin 11.2L, Hematocrit 34L , Mean Corpuscular Volume 91, Mean Corpuscular Hemoglobin 30, Mean Corpuscular Hemoglobin Concent 33, Red Cell Distribution Width 14.6H, Platelet Count 191, Mean Platelet Volume 11.0H, Neutrophils (%) (Auto) 66, Lymphocytes (%) (Auto) 23, Monocytes (%) (Auto) 5, Eosinophils (%) (Auto) 5, Basophils (%) (Auto) 1, Neutrophils # (Auto) 7.7, Lymphocytes # (Auto) 2.7, Monocytes # (Auto) 0.6, Eosinophils # (Auto) 0.6H, Basophils # (Auto) 0.1, Sodium Level 141, Potassium Level 4.7, Chloride Level 109H, Carbon Dioxide Level 22, Anion Gap 10, Blood Urea Nitrogen 22H, Creatinine 1.00, Estimat Glomerular Filtration Rate 56, BUN/Creatinine Ratio 22, Glucose Level 85, Calcium Level 8.9 06/18/20 06:57: Glucometer 130H Microbiology 06/15/20 MRSA Screen - Final, Complete MRSA not isolated Patient resulted labs reviewed. Pending Labs Imaging: Reviewed Imaging Report Discussion & Recommendations Discharge Planning: >30 minutes discharge planning Discharge Home Medications: Active Scripts Active Oxycodone-Acetaminophen 5-325 (Oxycodone HCl/Acetaminophen) 1 Each Tablet 1 Each PO Q4H PRN MDD 6 Reported Soothe Lubricant Eye Drops (Glycerin/Propylene Glycol) 1 Each Droperette 2 Drops OU PRN PRN Benadryl Allergy (Diphenhydramine HCl) 25 Mg Tablet 25-50 Mg PO Q6H PRN Melatonin 5 Mg Tablet 5 Mg PO HS Novolog Flexpen (Insulin Aspart) 300 Units/3 Ml Solution Units SC TIDAC USES PER SLIDING SCALE Atorvastatin Calcium 10 Mg Tablet 10 Mg PO HS LAST FILLED 01-03-2020 #60 Eliquis (Apixaban) 5 Mg Tablet 5 Mg PO BID Tramadol HCl 50 Mg Tablet 50 Mg PO Q6H PRN Gabapentin 800 Mg Tablet 800 Mg PO DAILY Levemir Flextouch (Insulin Detemir) 100 Unit/1 Ml Insuln.pen 25 Unit SQ BID Omeprazole 20 Mg Capsule. 20 Mg PO DAILY Aspirin EC (Aspirin) 81 Mg Tablet. 81 Mg PO DAILY Gabapentin 800 Mg Tablet 1,600 Mg PO HS TAKES 2 (800MG) TABLETS Instructions to patient/family Please see electronic discharge instructions given to patient. Clinical Quality Measures DVT/VTE Risk/Contraindication: Risk Factor Score Per Nursin RFS Level Per Nursing on Admit: 4+=Very High GERARDO RITTER MD Jun 18, 2020 10:39
[2020-06-18] MEDS ORDERED: OXYC-471 PO (10:47)
--- NOTE | 2020-06-18 10:49 | NUR ---
CM FINALIZED DISCHARGE PLAN: Patient will dismiss to home today self care. She will resume her out patient Physical therapy sessions that she has through a private PT. We visited about shower chairs and life alerts. She is not interested in this equipment if not covered by her insurance and they are not. Denies any other needs or requests.
--- NOTE | 2020-06-18 11:53 | Occupational Ther Daily Note ---
OT Current Status-Daily Note Subjective Pt sitting in chair, agrees to therapy. ADL-Treatment Pt states she will be discharging home today. Would like to get dressed. Pt doffed hospital gown without assist. Min assist to do bra. Pt states she's had trouble with this for awhile secondary to left rotator cuff surgery. Donned pulling unit operator shirt with set up. Pt able to thread bilateral LE into underwear and pants without assist. Stood and completed pant hike without LOB. Discussed ADL/home safety. Pt states understanding and has no questions or concerns at this time. Pt sitting in chair with needs met. Therapy Code Descriptions/Definitions Functional [place] Measure: 0=Not Assessed/NA 4=Minimal Assistance 1=Total Assistance 5=Supervision or Setup 2=Maximal Assistance 6=Modified [place] 3=Moderate Assistance 7=Complete IndependenceSCALE: Activities may be completed with or without assistive devices. 3-Jlbxzpcwmk-wfgticf completes the activity by him/herself with no assistance from a helper. 5-Set-up or Clean-up Assistance-helper sets up or cleans up; patient completes activity. [place] assists only prior to or following the activity. 4-Supervision or Touching Assistance-helper provides verbal cues and/or touching/steadying and/or contact guard assistance as patient completes activity. Assistance may be provided throughout the activity or intermittently. 3-Partial/Moderate Assistance-helper does LESS THAN HALF the effort. [place] lifts, holds or supports trunk or limbs, but provides less than half the effort. 2-Substantial/Maximal Assistance-helper does MORE THAN HALF the effort. [place] lifts or holds trunk or limbs and provides more than half the effort. 5-Ahilsercz-mcwnsy does ALL the effort. Patient does none of the effort to complete the activity. Or, the assistance of 2 or more helpers is required for the patient to complete the activity. If activity was not attempted, code reason: 7-Patient Refused. 9-Not Applicable-not attempted and the patient did not perform the activity before the current illness, exacerbation or injury. 10-Not Attempted due to Environmental Limitations-(lack of equipment, weather restraints, etc.). 88-Not Attempted due to Medical Conditions or Safety Concerns. Education OT Patient Education: Safety issues Teaching Recipient: Patient Teaching Methods: Discussion Response to Teaching: Verbalize Understanding OT Alf Goals Alf Goals Time Frame: Jun 24, 2020 Eating (QC): 6 Oral Hygiene (QC): 6 Toileting Hygiene (QC): 6 Shower/Bathe Self (QC): 6 Upper Body Dressing (QC): 6 Lower Body Dressing (QC): 6 On/Off Footwear (QC): 6 Additional Goals: 1-Demonstrate ADL Tasks, 2-Verbalize Understanding, 3- ImproveStrength/Yue 1=Demonstrate adherence to instructed precautions during ADL tasks. 2=Patient will verbalize/demonstrate understanding of assistive devic es/modifications for ADL. 3=Patient will improve strength/tolerance for activity to enable patient to perform ADL's. OT Education/Plan Discharge Recommendations Plan/Recommendations: Continue POC Treatment Plan/Plan of Care Patient would benefit from OT for education, treatment and training to promote independence in ADL's, mobility, safety and/or upper extremity function for ADL's. Plan of Care: ADL Retraining, Functional Mobility, UE Funct Exercise/Act Treatment Duration: Jun 24, 2020 Frequency: 5 times per week Estimated Hrs Per Day: .25 hour per day Agreement: Yes Rehab Potential: Fair Time/GCodes Start Time: 11:14 Stop Time: 11:24 Total Time Billed (hr/min): 10 Billed Treatment Time 1 visit, ADL(10minutes) [place] OT Jun 18, 2020 11:53
[2020-06-18 12:10] VITALS: BP 195/84
== END 2020-06-18 12:10 | disposition home or self-care (01) | DRG 638 ==
LOC: EDUNIT# 21:45 → ER 21:46 → ICU 06-15 01:22 → 4TH 06-16 13:24
PROVIDERS: ADMIT Internal Medicine; ATTEND Internal Medicine
DX: E10.10 Type 1 diabetes mellitus with ketoacidosis without coma (principal); N17.9 Acute kidney failure, unspecified; I12.9 Hypertensive chronic kidney disease with stage 1 through stage 4 chronic kidney disease, or unspecified chronic kidney disease; N18.9 Chronic kidney disease, unspecified; E10.43 Type 1 diabetes mellitus with diabetic autonomic (poly)neuropathy; E10.42 Type 1 diabetes mellitus with diabetic polyneuropathy; I48.91 Unspecified atrial fibrillation; I25.10 Atherosclerotic heart disease of native coronary artery without angina pectoris; G89.29 Other chronic pain; J42 Unspecified chronic bronchitis; G43.909 Migraine, unspecified, not intractable, without status migrainosus; K21.9 Gastro-esophageal reflux disease without esophagitis; E83.42 Hypomagnesemia; F41.9 Anxiety disorder, unspecified; K58.9 Irritable bowel syndrome, unspecified; M25.512 Pain in left shoulder; W18.30XA Fall on same level, unspecified, initial encounter; R29.6 Repeated falls; G47.30 Sleep apnea, unspecified; E78.00 Pure hypercholesterolemia, unspecified; J30.2 Other seasonal allergic rhinitis; E04.1 Nontoxic single thyroid nodule; R53.81 Other malaise; Z95.5 Presence of coronary angioplasty implant and graft; Z79.4 Long term (current) use of insulin; Z91.19 Patient's noncompliance with other medical treatment and regimen; Z87.891 Personal history of nicotine dependence; Z98.1 Arthrodesis status; Z86.718 Personal history of other venous thrombosis and embolism
CPT/HCPCS: 36415; 70450; 71045; 72125; 73030; 80048; 80053; 81000; 82010; 82962; 83036; 83735; 84100; 85025; 87081; 93041; 99291

== ENCOUNTER → 2020-06-14 | Outpatient (CLI) | payer MEDICARE ==
[~2020-06-14] MED LIST changes: +APIX5TAB PO; +DIPH25TA65 PO; +GLYC1DRO OU; +INSU100I14 SC; +MELA5TAB14 PO
--- NOTE | 2020-06-14 15:39 | Diagnostic Imaging Report ---
INDICATION: Fall with injury to the left shoulder. TIME OF EXAM: 02:24 p.m. FINDINGS: Three views of the left shoulder were obtained. There is an anchor overlying the proximal humerus likely from prior rotator cuff surgery. Glenohumeral and acromioclavicular alignment is normal. Acromiohumeral distance is normal. No fracture or dislocation is detected. IMPRESSION: Postop changes. No acute abnormality is detected. Dictated by: Dictated on workstation # [id number]
== END ==
LOC: RAD 14:02
PROVIDERS: ATTEND Family Medicine
DX: S49.92XA Unspecified injury of left shoulder and upper arm, initial encounter (principal); Z98.890 Other specified postprocedural states; W19.XXXA Unspecified fall, initial encounter
CPT/HCPCS: 73030

== ENCOUNTER 2020-06-25 18:02 | Emergency (ER) | payer MEDICARE ==
[~2020-06-25] VITALS: Ht 149.8 cm; Wt 63.8 kg
[~2020-06-25 18:02] MED LIST changes: -NITR-65 PO
--- NOTE | 2020-06-25 18:13 | ED General ---
General Chief Complaint: Trauma-Non Activation Stated Complaint: FALL Source of Information: Patient, EMS, Old Records History of Present Illness Date Seen by Provider: Jun 25, 2020 Time Seen by Provider: 18:00 Initial Comments PT ARRIVES VIA EMS FROM HOME--CERVICAL COLLAR IN PLACE PT STATES SHE LAID DOWN IN HER BED AROUND 1430 TO TAKE A NAP, AND "WOKE UP FACE DOWN ON THE LIVING ROOM FLOOR AND I DON'T KNOW HOW I GOT THERE" --JUST PRIOR TO ARRIVAL PT HAS NO RECOLLECTION OF ANYTHING AFTER SHE LAID DOWN FOR A NAP AT 1430. REPORTEDLY CALLED A NEIGHBOR IN HER APARTMENT COMPLEX, WHO CAME TO CHECK ON HER, AND WHO CALLED EMS C/O "PAIN EVERYWHERE" PT STATES SHE HURTS THE MOST IN HER LEFT SHOULDER AND UPPER ARM AND IN HER NECK HAS CHRONIC LEFT SHOULDER PAIN AND UPPER ARM PAIN , BUT STATES SHE "WOKE UP ON TOP OF IT"--HAS HAD LEFT ROTATOR CUFF SURGERY 05/01/[address] PALACIOS. PT HAD OUTPATIENT XRAYS OF THIS SAME ARM EARLIER TODAY--NEGATIVE. PT ALSO C/O NECK PAIN--HAS CHRONIC NECK PAIN NO VISION CHANGES C/O DIZZINESS, BUT IS FREQUENT COMPLAINT. HAS CHRONIC NAUSEA-NO DIFFERENT THAN NORMAL PT MOANS AND WAILS AND STATES IT HURTS LITERALLY EVERY WHERE SHE IS TOUCHED. PT IS INSULIN DEPENDENT DIABETIC, AND HAS A CONTINUOUS GLUCOSE MONITOR DEVICE ON LEFT LOWER ABDOMEN STATES HER FRIEND CHECKED HER BLOOD SUGAR AND IT WAS 200 GLUCOSE FOR EMS WAS 242 PT SEEN HERE 05/23/20 FOR A FALL, AND HAD BEEN ILL FOR THE WEEK PRIOR WITH GI SYMPTOMS AND WAS FOUND TO BE IN DKA, WITH OUT ANY INJURIES NOTED FROM THE FALL. TRANSFERRED TO , DUE TO LACK OF ICU BEDS HERE OR [place] [facility]. WAS ALSO FOUND TO BE IN RENAL FAILURE AT THAT TIME WELL PT IS VERY WELL KNOWN TO THIS ER, AND TO EMS, WITH A MULTITUDE OF VISITS, MANY FOR DKA/DIABETES-RELATED COMPLAINTS, AND WELL VARIOUS PAIN COMPLAINTS. MULTIPLE EPISODES OF DKA VERY EASILY CONTROLLED WITH INSULIN IN THE HOSPITAL. PT WITH VERY EXTENSIVE HISTORY OF NARCOTIC ABUSE, AND HAD BEEN PRESCRIBED SUBOXONE SEVERAL MONTHS AGO, WHILE SHE WAS A PT AT [facility], BUT THEN SWITCHED TO DR. CALABRESE AND HAS NOT BEEN PRESCRIBED ANY SUBOXONE OR PAIN MEDICATIONS BY HIM HOWEVER. SHE HAS BEEN PRESCRIBED OXYCODONE AND TRAMADOL SINCE SHE HAD SHOULDER SURGERY IN [place]IL. PT HAS AN EXTENSIVE HISTORY OF NON-COMPLIANCE IN ALL ASPECTS OF CARE HAS BEEN SEEN BY A MULTITUDE OF PROVIDERS AT [facility] AND REPORTEDLY "WAS FIRED" BY THEM DUE TO NON-COMPLIANCE. NO KNOWN SICK CONTACTS OR EXPOSURE TO COVID-19 PT DOES NOT VOICE ANY RECENT ILLNESS OR ANY SYMPTOMS OF COVID-19 SEE OLD CHARTS FOR DETAILS, INCLUDING VISIT FROM 05/23/20 PCP: DR. CALABRESE Allergies and Home Medications Allergies Coded Allergies: ketorolac (Verified Allergy, Severe, ANAPHYLAXIS, PT TAKES ASA AT HOME, 03/06/19) ondansetron (Verified Allergy, Intermediate, RASH, 03/06/19) RASH/ HIVES scopolamine (Verified Allergy, Mild, Rash, 03/21/19) exenatide (Verified Allergy, Unknown, NAUSEA, 03/06/19) NON STOP VOMITING latex (Verified Allergy, Unknown, RASH, 03/06/19) metoclopramide (Verified Allergy, Unknown, RESTLESS LEGS, 03/06/19) erythromycin base (Verified Adverse Reaction, Unknown, 03/21/19) Home Medications Apixaban 5 Mg Tablet, 5 MG PO BID, (Reported) Aspirin 81 Mg Tablet.dr, 81 MG PO DAILY, (Reported) Atorvastatin Calcium 10 Mg Tablet, 10 MG PO HS, (Reported) LAST FILLED 01-03-2020 #60 Diphenhydramine HCl 25 Mg Tablet, 25-50 MG PO Q6H PRN for ALLERGY SYMPTOMS, (Reported) Gabapentin 800 Mg Tablet, 1,600 MG PO HS, (Reported) TAKES 2 (800MG) TABLETS Gabapentin 800 Mg Tablet, 800 MG PO DAILY, (Reported) Glycerin/Propylene Glycol 1 Each Droperette, 2 DROPS OU PRN PRN for DRY EYES, (R eported) Insulin Aspart 300 Units/3 Ml Solution, UNITS SC TIDAC, (Reported) USES PER SLIDING SCALE Insulin Detemir 100 Unit/1 Ml Insuln.pen, 25 UNIT SQ BID, (Reported) Melatonin 5 Mg Tablet, 5 MG PO HS, (Reported) Omeprazole 20 Mg Capsule.dr, 20 MG PO DAILY, (Reported) Oxycodone HCl/Acetaminophen 1 Each Tablet, 1 EACH PO Q4H PRN for PAIN-SEVERE Prescribed by: GERARDO RITTER on 06/18/20 1041 Tramadol HCl 50 Mg Tablet, 50 MG PO Q6H PRN for PAIN-MODERATE (5-7), (Reported) Patient Home Medication List Home Medication List Reviewed: Yes Review of Systems Review of Systems Constitutional: no symptoms reported EENTM: no symptoms reported Respiratory: no symptoms reported; No cough, No short of breath Cardiovascular: chest pain ("RIBS HURT"); No edema, No palpitations; syncope (POSSIBLY) Gastrointestinal: No abdominal pain; nausea (CHRONIC N/V-DX WITH DIABETIC GASTROPARESIS, BUT HAS REFUSED ALL TREATMENTS); No vomiting Genitourinary: no symptoms reported Musculoskeletal: see HPI Skin: other (ABRASIONS TO KNEES) Psychiatric/Neurological: Headache, Pre-Existing Deficit (PERIPHERAL NEUROPATHY IN FEET), Other (NO NEW PARESTHESIAS OR MOTOR DEFICITS. ) Hematologic/Lymphatic: No Symptoms Reported Immunological/Allergic: no symptoms reported Past Oqoymvg-Mtjaex-Pngqro Hx Past Med/Social Hx: Reviewed and Corrections made Patient Social History Alcohol Use: Rarely Uses Alcohol Beverage of Choice: Wine Recreational Drug Use: Yes (NARCOTIC ABUSE) Drug of Choice: NARCOTIC ABUSE Smoking Status: Current Everyday Smoker (1 PPD) Type Used: Cigarettes 2nd Hand Smoke Exposure: No Recent Hopitalizations: No Immunizations Up To Date Tetanus Booster (TDap): Unknown PED Vaccines UTD: No Date of Pneumonia Vaccine: Nov 06, 2019 Date of Influenza Vaccine: Nov 22, 2019 Seasonal Allergies Seasonal Allergies: Yes Past Medical History Surgeries: Yes (LITHOTRIPSY;LUMBAR SURGERY X 4;BMT'S;EGD'S WITH ESOPHAGEAL DILATIONS;) Cardiac, Coronary Stent, Ear Surgery, Gallbladder, Orthopedic, Renal Respiratory: Yes Chronic Bronchitis, Sleep Apnea Currently Using CPAP: No Currently Using BIPAP: No Cardiac: Yes (DVT'S IN ARMS; CARDIAC STENT X 1; CAROTID DISEASE;LINQ DEVICE) Chronic Edema/Swelling, Coronary Artery Disease, Deep Vein Thrombosis, High Cholesterol, Hypertension, Palpitations Neurological: Yes (NEUROPATHY IN HANDS AND FEET) Headaches /Migraines, Neuropathy 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 Disorders: No 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 Disorders: Denies 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 History: Menopausal Sexually Transmitted Disease: No HIV/AIDS: No Genitourinary: Yes Bladder Infection, Kidney Stones, Renal Failure Gastrointestinal: Yes (GASTRITIS;ESOPH STRICTURE/DILATION;GASTROPARESIS-CHRONIC N/V/ABD PAIN;DAVID) Gastroesophageal Reflux, Diverticulosis, Esophagitis, Irritable Bowel Musculoskeletal: Yes (CHRONIC GENERALIZED PAIN;CHRONIC BILAT SHOULDER PAIN;CHRONIC NECK PAIN ) Degenerate Disk Disease, Fibromyalgia, Chronic Back Pain Endocrine: Yes (NON-COMPLAINT;MULTIPLE EPISODES OF DKA-EASILY CONTROLLED ON INSULIN IN HOSP) Diabetes, Insulin dep HEENT: Yes (GLASSES; S/P BMT'S) Chronic Ear Infection Loss of Vision: Bilateral Hearing Impairment: Hard of Hearing Cancer: No Psychosocial: Yes Anxiety Integumentary: Yes Psoriasis Blood Disorders: No Adverse Reaction/Blood Tranf: No Family Medical History Cancer of mouth 19 FATHER ( of esophogeal cancer.) Cardiovascular disease 19 MOTHER G8 BROTHER Completed stroke 19 FATHER G8 BROTHER Diabetes mellitus G8 BROTHER FH: lung cancer 19 MOTHER Hypertension 19 FATHER Kidney disease 19 FATHER Myocardial infarction 19 MOTHER G8 BROTHER Respiratory disorder No Family History of: AIDS CAD Over 55 Years Old, CVA, Diabetes, GI Disease, Renal Disease PSH: -LINQ DEVICE PLACED 11/09/19 FOR REPORTED PALPITATIONS X 6 MONTHS, SINCE PERCOCET WAS DC'D -MULTIPLE CARDIAC CATHS--STENT X 1 TO LAD 07/13/15. LAST CATH 01/18/19--NO INTERVENTION -LUMBAR SPINE FUSION X 3--12/2002, 04/2007, AND 05/2007 -LUMBAR DISCECTOMY 10/2000--? LAMINECTOMY? -CERVICAL SPINE FUSION 11/2006 -CHOLECYSTECTOMY 1984 -BMT'S -LITHOTRIPSY AND RIGHT URETERAL STENT -EGD'S WITH ESOPHAGEAL DILATIONS -COLONOSCOPIES, LAST ONE 03/08/19 -PORT RIGHT CHEST -LEFT SHOULDER ROTATOR CUFF REPAIR 05/01/20--DR. PALACIOS -CONTINUOUS GLUCOSE MONITOR PRESENT 06/25/20--LLQ OF ABDOMEN Physical Exam Vital Signs Vital Signs - First Documented 06/25/20 18:04 Temp 37.1 Pulse 82 Resp 18 B/P (MAP) 184/87 (119) Pulse Ox 98 O2 Delivery Room Air Capillary Refill : Height, Weight, BMI Height: 5'1.00" Weight: 122lbs. 1.0oz. [id number]; 26.00 BMI Method:Estimated General Appearance: No Apparent Distress, WD/WN HEENT: PERRL/EOMI, TMs Normal, Normal ENT Inspection, Other (NO EVIDENCE OF TRAUMA TO FACE OR HEAD. ) Neck: Other (IN CERVICAL COLLAR ON ARRIVAL. ) Respiratory: Normal Breath Sounds, No Accessory Muscle Use, No Respiratory Distress, Other (DIFFUSE CHEST TENDERNESS) Cardiovascular: Regular Rate, Rhythm, No Edema, No JVD, No Murmur, Other (FAINT PULSES IN FEET, BUT FEET ARE PINK) Gastrointestinal: Soft, Tenderness (MILD DIFFUSE TENDERNESS. ) Back: Other (DIFFUSE BACK TENDERNESS) Extremity: Normal Capillary Refill, No Calf Tenderness, Other (TENDERNESS TO LEFT SHOULDER AND HUMERUS. TENDERNESS TO BILATERAL HIPS. NO DEFORMITY. HAS OLD SCABBED ABRASIONS TO BOTH KNEES OF VARIOUS AGES, BUT HAS A FRESH SUPERFICIAL ABR ASION TO RIGHT KNEE. 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 Norm as Tested, Other (PERHIPHERAL NEUROPATHY WITH SLIGHTLY DECREASED SENSATION TO BOTH FEET--PT STATES IS NORMAL) Skin: Normal Color, Warm/Dry, Other (ABRASIONS NOTED ABOVE) Procedures/Interventions Date of ETT Placement: Dec 30, 2019 Time of ETT Placement: 0750 Progress/Results/Core Measures Suspected Sepsis SIRS Temperature: Pulse: Respiratory Rate: Laboratory Tests 06/25/20 18:28: White Blood Count 11.2H Blood Pressure / Mean: Laboratory Tests 06/25/20 18:28: Creatinine 0.98, INR Comment 1.2, Platelet Count 299, Total Bilirubin 0.4 Results/Orders Lab Results Laboratory Tests Test 06/25/20 18:28 06/25/20 18:40 Range/Units White Blood Count 11.2 H 4.3-11.0 10^3/uL Red Blood Count 3.93 L 4.35-5.85 10^6/uL Hemoglobin 11.8 11.5-16.0 G/DL Hematocrit 35 35-52 % Mean Corpuscular Volume 90 80-99 FL Mean Corpuscular Hemoglobin 30 25-34 PG Mean Corpuscular Hemoglobin Concent 33 32-36 G/DL Red Cell Distribution Width 13.8 10.0-14.5 % Platelet Count 299 130-400 10^3/uL Mean Platelet Volume 9.8 7.4-10.4 FL Neutrophils (%) (Auto) 70 42-75 % Lymphocytes (%) (Auto) 20 12-44 % Monocytes (%) (Auto) 8 0-12 % Eosinophils (%) (Auto) 1 0-10 % Basophils (%) (Auto) 1 0-10 % Neutrophils # (Auto) 7.8 1.8-7.8 X 10^3 Lymphocytes # (Auto) 2.2 1.0-4.0 X 10^3 Monocytes # (Auto) 0.9 0.0-1.0 X 10^3 Eosinophils # (Auto) 0.1 0.0-0.3 10^3/uL Basophils # (Auto) 0.1 0.0-0.1 10^3/uL Prothrombin Time 15.4 H 12.2-14.7 SEC INR Comment 1.2 0.8-1.4 Activated Partial Thromboplast Time 30 24-35 SEC Sodium Level 138 135-145 MMOL/L Potassium Level 4.0 3.6-5.0 MMOL/L Chloride Level 109 H 98-107 MMOL/L Carbon Dioxide Level 21 21-32 MMOL/L Anion Gap 8 5-14 MMOL/L Blood Urea Nitrogen 16 7-18 MG/DL Creatinine 0.98 0.60-1.30 MG/DL Estimat Glomerular Filtration Rate 58 BUN/Creatinine Ratio 16 Glucose Level 272 H 70-105 MG/DL Calcium Level 9.4 8.5-10.1 MG/DL Corrected Calcium 9.7 8.5-10.1 MG/DL Magnesium Level 1.9 1.6-2.4 MG/DL Total Bilirubin 0.4 0.1-1.0 MG/DL Aspartate Amino Transf (AST/SGOT) 10 5-34 U/L Alanine Aminotransferase (ALT/SGPT) 6 0-55 U/L Alkaline Phosphatase 84 40-136 U/L Total Creatine Kinase 14 L 29-168 U/L Creatine Kinase MB 0.7 <6.6 NG/ML Myoglobin 28.5 10.0-92.0 NG/ML Troponin I < 0.028 <0.028 NG/ML B-Type Natriuretic Peptide 59.5 <100.0 PG/ML Total Protein 6.9 6.4-8.2 GM/DL Albumin 3.6 3.2-4.5 GM/DL Amylase Level 26 25-125 U/L Lipase < 4 L 8-78 U/L Acetaminophen Level < 10 L 10-30 UG/ML Serum Alcohol < 10 <10 MG/DL Urine Color YELLOW Urine Clarity SL CLOUDY Urine pH 7.0 5-9 Urine Specific [place] 1.020 1.016-1.022 Urine Protein 3+ H NEGATIVE Urine Glucose (UA) NEGATIVE NEGATIVE Urine Ketones NEGATIVE NEGATIVE Urine Nitrite POSITIVE H NEGATIVE Urine Bilirubin NEGATIVE NEGATIVE Urine Urobilinogen 0.2 < = 1.0 MG/DL Urine Leukocyte Esterase 1+ H NEGATIVE Urine RBC (Auto) 3+ H NEGATIVE Urine RBC 10-25 H /HPF Urine WBC 10-25 H /HPF Urine Squamous Epithelial Cells NONE /HPF Urine Crystals NONE /LPF Urine Bacteria LARGE H /HPF Urine Casts NONE /LPF Urine Mucus NEGATIVE /LPF Urine Culture Indicated YES Urine Opiates Screen NEGATIVE NEGATIVE Urine Oxycodone Screen NEGATIVE NEGATIVE Urine Methadone Screen NEGATIVE NEGATIVE Urine Propoxyphene Screen NEGATIVE NEGATIVE Urine Barbiturates Screen NEGATIVE NEGATIVE Ur Tricyclic Antidepressants Screen NEGATIVE NEGATIVE Urine Phencyclidine Screen NEGATIVE NEGATIVE Urine Amphetamines Screen NEGATIVE NEGATIVE Urine Methamphetamines Screen NEGATIVE NEGATIVE Urine Benzodiazepines Screen NEGATIVE NEGATIVE Urine Cocaine Screen NEGATIVE NEGATIVE Urine Cannabinoids Screen NEGATIVE NEGATIVE My Orders Orders - PURA PIÑA DO Ed Iv/Invasive Line Start (06/25/20 18:05) Ekg Tracing (06/25/20 18:05) Monitor-Rhythm Ecg Trace Only (06/25/20 18:05) Straight Cath For Spec.-Adult (06/25/20 18:05) Ct Head/Face/Cervical Wo (06/25/20 18:05) Ct Thoracic/Lumbar Spine Wo (06/25/20 18:05) Chest 1 View, Ap/Pa Only (06/25/20 18:05) Shoulder, Left, 3 Views (06/25/20 18:05) Humerus, Left, 2 Views (06/25/20 18:05) Acetaminophen (06/25/20 18:05) Alcohol (06/25/20 18:05) Amylase (06/25/20 18:05) BNP (06/25/20 18:05) Cbc With Automated Diff (06/25/20 18:05) Comprehensive Metabolic Panel (06/25/20 18:05) Creatine Kinase (06/25/20 18:05) Creatine Kinase Mb (06/25/20 18:05) Drug Screen Stat (Urine) (06/25/20 18:05) Lipase (06/25/20 18:05) Magnesium (06/25/20 18:05) Protime With Inr (06/25/20 18:05) Partial Thromboplastin Time (06/25/20 18:05) Ua Culture If Indicated (06/25/20 18:05) Myoglobin Serum (06/25/20 18:05) Troponin I (06/25/20 18:05) Dipht,Pertuss(Acell),Tet Adult (Boostrix (06/25/20 18:15) Pelvis/Wili Hips 5> Views (06/25/20 18:13) Ct Chest/Abdomen/Pelvis Wo (06/25/20 18:34) Iohexol Injection (Omnipaque 350 Mg/Ml 1 (06/25/20 18:45) Received Contrast (Hold Metformin- Contr (06/25/20 18:45) Ns (Ivpb) (Sodium Chloride 0.9% Ivpb Bag (06/25/20 18:45) Urine Culture (06/25/20 18:40) Ceftriaxone For Iv Use (Rocephin For I (06/25/20 19:30) Ed Iv/Invasive Line Start (06/25/20 19:25) Ns Iv 1000 Ml (Sodium Chloride 0.9%) (06/25/20 19:25) Acetaminophen Tablet (Tylenol Tablet) (06/25/20 20:00) Medications Given in ED Current Medications Medications Dose Ordered Sig/Jackie Route Start Time Stop Time Status Last Admin Dose Admin Ceftriaxone Sodium 1000 mg/ Sterile Water 10 ml @ 200 mls/hr ONCE ONCE IV 06/25/20 19:30 06/25/20 19:32 DC 06/25/20 19:37 200 MLS/HR Diphtheria/ Tetanus/Acell Pertussis 0.5 ml ONCE ONCE IM 06/25/20 18:15 06/25/20 18:16 DC 06/25/20 18:24 0.5 ML Vital Signs/I&O 06/25/20 18:04 Temp 37.1 Pulse 82 Resp 18 B/P (MAP) 184/87 (119) Pulse Ox 98 O2 Delivery Room Air Capillary Refill : Progress Note : Progress Note PT'S PORT IS NOT A POWER PORT, AND UNABLE TO OBTAIN PERIPHERAL IV ACCESS. PT REPEATEDLY WANTING "SOMETHING STRONG FOR PAIN" FROM ARRIVAL, PER HER USUAL REQUEST ON MULTIPLE VISITS ECG Initial ECG Impression Date: Jun 25, 2020 Initial ECG Impression Time: 18:07 Initial ECG Rate: 87 Initial ECG Rhythm: Normal Sinus Initial ECG Comparisson: Unchanged Diagnostic Imaging Comments CT HEAD/MAXILLOFACIALS/CERVICAL SPINE--PER RADIOLOGIST REPORT AT 1948 CT HEAD: Ventricles and sulci are stable in appearance. There is mild periventricular hypodensity noted consistent with chronic microvascular ischemia. No sulcal effacement or midline shift is identified. No acute intra-axial or extra-axial hemorrhage is detected. Cisterns are patent. Visualized paranasal sinuses are clear. IMPRESSION: 1. Stable chronic changes. No acute intracranial process is detected. CT CERVICAL SPINE: Curvature and alignment are normal. There are postoperative changes of ACDF with anterior plate and screws transfixing C5-C7 levels. Hardware is intact without fracture or loosening. The bony structures are nonacute. Prevertebral tissues are normal. Odontoid is intact. IMPRESSION: 1. Postoperative changes C5-C7 ACDF. No acute feature is detected. CT FACE: The mandible appears intact. Zygomatic arches are intact. The maxillary sinus smalls, nasal bones and orbital smalls appear to be intact. The visualized paranasal sinuses are clear. Mastoids are well-aerated. IMPRESSION: 1. No facial bone fracture is detected. CT THORACIC / LUMBAR SPINE--PER RADIOLOGIST REPORT AT 1948 IMPRESSION: Chronic changes throughout the thoracolumbar spine with postop changes in the lower lumbar spine. There is no acute appearing abnormality. CT CHEST/ABDOMEN/PELVIS--PER RADIOLOGIST REPORT AT 1949CT CHEST: A right chest wall port is noted. No definite mediastinal hematoma is identified. There are coronary arterial calcifications. No pericardial or pleural fluid is detected. No pulmonary contusion or pneumothorax is detected. The lungs are clear. Bony structures are nonacute. IMPRESSION: 1. Unremarkable CT of the chest. CT ABDOMEN AND PELVIS: Lack of intravenous contrast does compromise evaluation for visceral injury. No definite perihepatic or perisplenic fluid is identified. Pancreas appears atrophic. No adrenal hematoma is seen. The kidneys are unremarkable. Aorta is calcified but non-aneurysmal. Bowel loops are normal caliber. No free fluid or hemoperitoneum is detected. There is diverticulosis of the sigmoid. Bladder is unremarkable. The bony structures demonstrate postoperative changes of posterior instrumented fusion from L3 through S1. There is multilevel degenerative disc disease. No acute bony abnormality is seen. IMPRESSION: 1. Unremarkable noncontrast CT of the abdomen and pelvis. XRAYS--ALL PER RADIOLOGIST REPORTS AT 1950 CXR-- IMPRESSION: No acute cardiopulmonary process is detected. LEFT SHOULDER AND HUMERUS- IMPRESSION: No acute abnormality of left humerus. Glenohumeral and acromioclavicular alignment are normal. Acromiohumeral space is normal. There is a suture anchor overlying the left humeral head. No fracture or dislocation is detected. IMPRESSION: 1. No acute bony abnormality is detected. PELVIS/BILATERAL HIPS- IMPRESSION: 1. Negative pelvis and bilateral hips. Reviewed: Reviewed by Me Departure Impression Primary Impression: S/P UNWITNESSED FALL VS SYNCOPE Additional Impressions: UTI IDDM (insulin dependent diabetes mellitus) EXACERBATION OF CHRONIC LEFT SHOLDER PAIN EXACERBATION OF CHRONIC NECK AND BACK PAIN Multiple contusions POSSIBLE MINOR HEAD INJURY KNEE ABRASIONS Izlstjtonp-btvoqwyve-[id number] (DPT) vaccination administered at current visit Disposition: HOME, SELF-CARE Condition: Stable Departure-Patient Inst. Referrals: CINDY CALABRESE DO (PCP/Family) Primary Care Physician Patient Instructions: Contusion (DC), DIABETES, Diphtheria and Tetanus Toxoids, and Acellular Pertussis Vaccine, General Trauma (DC), Getting Up From a Fall, Minor Head Injury (DC), Preventing Falls, Skin Abrasions (DC), Urinary Tract Infection, Adult (DC) Add. Discharge Instructions: ICE TO SORE AREAS AT 20 MINUTE INTERVALS TYLENOL NEEDED FOR PAIN CONTINUE YOUR CURRENT MEDICATIONS PRESCRIBED FOLLOW DIABETIC DIET FOLLOW UP WITH YOUR DR IN 3-4 DAYS FOR FURTHER CARE All discharge instructions reviewed with patient and/or family. Voiced understanding. Scripts Nitrofurantoin Monohyd/M-Cryst (Macrobid 100 mg Capsule) 100 Mg Capsule 1 TAB PO BID, #20 CAP Prov: PURA PIÑA DO 06/25/20 PURA PIÑA DO Jun 25, 2020 18:13
[2020-06-25] MEDS ORDERED: TETANUS,DIPTH,PERTUSS P/F (BOOSTRIX) 0.5 ML VIAL IM ONE (18:15)
[2020-06-25 18:34] LABS: BASOPHILS # (AUTO) 0.1 10^3/uL (0.0-0.1); BASOPHILS % (AUTO) 1 % (0-10); EOSINOPHILS # (AUTO) 0.1 10^3/uL (0.0-0.3); EOSINOPHILS % (AUTO) 1 % (0-10); HEMATOCRIT 35 % (35-52); HEMOGLOBIN 11.8 G/DL (11.5-16.0); LYMPHOCYTES # (AUTO) 2.2 X 10^3 (1.0-4.0); LYMPHOCYTES % (AUTO) 20 % (12-44); MEAN CORPUSCULAR HEMOGLOBIN 30 PG (25-34); MEAN CORPUSCULAR HGB CONC 33 G/DL (32-36); MEAN CORPUSCULAR VOLUME 90 FL (80-99); MEAN PLATELET VOLUME 9.8 FL (7.4-10.4); MONOCYTES # (AUTO) 0.9 X 10^3 (0.0-1.0); MONOCYTES % (AUTO) 8 % (0-12); NEUTROPHILS # (AUTO) 7.8 X 10^3 (1.8-7.8); NEUTROPHILS % (AUTO) 70 % (42-75); PLATELET COUNT 299 10^3/uL (130-400); RED CELL DISTRIBUTION WIDTH 13.8 % (10.0-14.5); WHITE BLOOD COUNT 11.2 10^3/uL (4.3-11.0)
[2020-06-25 18:44] LABS: BILIRUBIN,URINE NEGATIVE (NEGATIVE); CLARITY,URINE SL CLOUDY; COLOR,URINE YELLOW; GLUCOSE, URINE (UA) NEGATIVE (NEGATIVE); KETONES,URINE NEGATIVE (NEGATIVE); LEUKOCYTE ESTERASE ,URINE 1+ (NEGATIVE); NITRITE,URINE POSITIVE (NEGATIVE); PROTEIN,URINE 3+ (NEGATIVE)
[2020-06-25] MEDS ORDERED: IOHEXOL 350 MG/ML 100 ML (OMNIPAQUE 350) VIAL IV ONE (18:45)
[2020-06-25] MEDS ORDERED: HOLD METFORMIN - RECEIVED CONTRAST 20 ML VIAL IV SCH (18:45)
[2020-06-25] MEDS ORDERED: NS 100 ML (IVPB) BAG IV ONE (18:45)
[2020-06-25 18:46] LABS: INR 1.2 (0.8-1.4); PROTHROMBIN TIME PATIENT 15.4 SEC (12.2-14.7)
[2020-06-25 18:51] LABS: BACTERIA,URINE LARGE /HPF
[2020-06-25 18:55] LABS: AMPHETAMINE SCREEN, URINE NEGATIVE (NEGATIVE); BARBITURATE SCREEN URINE NEGATIVE (NEGATIVE); BENZODIAZEPINES SCREEN URINE NEGATIVE (NEGATIVE); CANNABINOID SCREEN, URINE NEGATIVE (NEGATIVE); COCAINE SCREEN URINE NEGATIVE (NEGATIVE); METHADONE STAT NEGATIVE (NEGATIVE); METHAMPHETAMINE SCREEN URINE S NEGATIVE (NEGATIVE); OPIATE SCREEN URINE NEGATIVE (NEGATIVE); OXYCODONE STAT NEGATIVE (NEGATIVE); PROPOXYPHENE STAT NEGATIVE (NEGATIVE); TRICYCLIC ANTIDEPRESSANTS SCRE NEGATIVE (NEGATIVE)
[2020-06-25 19:00] LABS: ALANINE AMINOTRANSFERASE 6 U/L (0-55); ALBUMIN 3.6 GM/DL (3.2-4.5); ALKALINE PHOSPHATASE 84 U/L (40-136); AMYLASE 26 U/L (25-125); BILIRUBIN,TOTAL 0.4 MG/DL (0.1-1.0); BUN/CREATININE RATIO 16; CALCIUM 9.4 MG/DL (8.5-10.1); CARBON DIOXIDE 21 MMOL/L (21-32); CHLORIDE 109 MMOL/L (98-107); CREATINE KINASE 14 U/L (29-168); CREATININE SERUM 0.98 MG/DL (0.60-1.30); GFR ESTIMATED 58; GLUCOSE 272 MG/DL (70-105); LIPASE < 4 U/L (8-78); MAGNESIUM 1.9 MG/DL (1.6-2.4); SODIUM 138 MMOL/L (135-145); TOTAL PROTEIN 6.9 GM/DL (6.4-8.2)
[2020-06-25 19:01] LABS: ACETAMINOPHEN < 10 UG/ML (10-30)
--- NOTE | 2020-06-25 19:03 | NUR ---
Recieved report from GONZALO Asif to assume pt care at this time.
[2020-06-25 19:07] LABS: CREATINE KINASE MB 0.7 NG/ML (<6.6)
[2020-06-25] MEDS ORDERED: NS IV 1000 ML 1,000 ML IV SCH (19:25)
[2020-06-25] MEDS ORDERED: cefTRIAXone FOR IV USE 1,000 MG in WATER (STERILE) FOR INJECTION 10 ML IV ONE (19:30)
--- NOTE | 2020-06-25 19:36 | Diagnostic Imaging Report ---
PROCEDURE: CT head, face, and cervical spine without contrast. TECHNIQUE: Multiple contiguous axial images were obtained through the head, neck, and facial bones without the use of intravenous contrast. Sagittal and coronal reformations through the cervical spine and facial bones were also performed. Auto Exposure Controls were utilized during the CT exam to meet ALARA standards for radiation dose reduction. INDICATION: Trauma, fall. CORRELATION is made with prior CT from 06/14/2020. CT HEAD: Ventricles and sulci are stable in appearance. There is mild periventricular hypodensity noted consistent with chronic microvascular ischemia. No sulcal effacement or midline shift is identified. No acute intra-axial or extra-axial hemorrhage is detected. Cisterns are patent. Visualized paranasal sinuses are clear. IMPRESSION: 1. Stable chronic changes. No acute intracranial process is detected. CT CERVICAL SPINE: Curvature and alignment are normal. There are postoperative changes of ACDF with anterior plate and screws transfixing C5-C7 levels. Hardware is intact without fracture or loosening. The bony structures are nonacute. Prevertebral tissues are normal. Odontoid is intact. IMPRESSION: 1. Postoperative changes C5-C7 ACDF. No acute feature is detected. CT FACE: The mandible appears intact. Zygomatic arches are intact. The maxillary sinus smalls, nasal bones and orbital smalls appear to be intact. The visualized paranasal sinuses are clear. Mastoids are well-aerated. IMPRESSION: 1. No facial bone fracture is detected. Dictated by: Dictated on workstation # [id number]
--- NOTE | 2020-06-25 19:36 | Diagnostic Imaging Report ---
Indication: Trauma, fall. Time of exam 7:26 PM Comparison is made with prior chest from 06/16/2020. Right-sided line has tip overlying the SVC right atrial junction. Monitoring device overlies the left chest. Lungs are clear. No infiltrates are seen. There is no effusion or pneumothorax. Heart size is stable. IMPRESSION: No acute cardiopulmonary process is detected. Dictated by: Dictated on workstation # [id number]
--- NOTE | 2020-06-25 19:37 | Diagnostic Imaging Report ---
Indication: Left shoulder pain. Time of exam 7:32 PM 3 views left shoulder were obtained. Glenohumeral and acromioclavicular alignment are normal. Acromiohumeral space is normal. There is a suture anchor overlying the left humeral head. No fracture or dislocation is detected. IMPRESSION: 1. No acute bony abnormality is detected. Dictated by: Dictated on workstation # [id number]
--- NOTE | 2020-06-25 19:40 | Diagnostic Imaging Report ---
INDICATION: Back pain, trauma TECHNIQUE: Multiple contiguous axial images were obtained through the thoracic and lumbar spine without the use of intravenous contrast. Sagittal and coronal reformations were then performed. All CT scans use one or more of the following dose optimizing techniques: automated exposure control, MA and/or KvP adjustment based on a patient size and exam type, or iterative reconstruction. FINDINGS: There are degenerative changes in the SI joints on both sides. Patient has had previous fusion from L3 through S1. There is mild fused anterolisthesis of L3 on L4. There has been laminectomy in the lower lumbar spine as well with widely patent canal. There is disc space narrowing at L1-L2 with facet joint degenerative changes. In the thoracic spine, there is diffuse degenerative endplate change and disc space narrowing. There is no acute fracture or compression deformity in the thoracic spine. IMPRESSION: Chronic changes throughout the thoracolumbar spine with postop changes in the lower lumbar spine. There is no acute appearing abnormality. Dictated by: Dictated on workstation # [id number]
--- NOTE | 2020-06-25 19:42 | Diagnostic Imaging Report ---
PROCEDURE: CT chest, abdomen, and pelvis without contrast. TECHNIQUE: Multiple contiguous axial images were obtained through the chest, abdomen, and pelvis without the use of intravenous contrast. Auto Exposure Controls were utilized during the CT exam to meet ALARA standards for radiation dose reduction. INDICATION: Trauma, fall. CT CHEST: A right chest wall port is noted. No definite mediastinal hematoma is identified. There are coronary arterial calcifications. No pericardial or pleural fluid is detected. No pulmonary contusion or pneumothorax is detected. The lungs are clear. Bony structures are nonacute. IMPRESSION: 1. Unremarkable CT of the chest. CT ABDOMEN AND PELVIS: Lack of intravenous contrast does compromise evaluation for visceral injury. No definite perihepatic or perisplenic fluid is identified. Pancreas appears atrophic. No adrenal hematoma is seen. The kidneys are unremarkable. Aorta is calcified but non-aneurysmal. Bowel loops are normal caliber. No free fluid or hemoperitoneum is detected. There is diverticulosis of the sigmoid. Bladder is unremarkable. The bony structures demonstrate postoperative changes of posterior instrumented fusion from L3 through S1. There is multilevel degenerative disc disease. No acute bony abnormality is seen. IMPRESSION: 1. Unremarkable noncontrast CT of the abdomen and pelvis. Dictated by: Dictated on workstation # [id number]
--- NOTE | 2020-06-25 19:43 | Diagnostic Imaging Report ---
INDICATION: Left arm pain post fall. AP and lateral views of the left humerus are obtained. FINDINGS: No fracture or acute bony abnormality is seen. Hamilton screw in the humeral head is noted. IMPRESSION: No acute abnormality of left humerus. Dictated by: Dictated on workstation # [id number]
--- NOTE | 2020-06-25 19:44 | Diagnostic Imaging Report ---
INDICATION: Fall with pelvic pain AP pelvis and AP and oblique views of both hips are obtained. No fracture or acute bony abnormality is seen. There are postoperative changes in the lower lumbar spine. IMPRESSION: 1. Negative pelvis and bilateral hips. Dictated by: Dictated on workstation # [id number]
--- NOTE | 2020-06-25 19:55 | NUR ---
Cervical collar removed by Dr. Bass at 1955
[2020-06-25] MEDS ORDERED: ACETAMINOPHEN 500 MG TAB (TYLENOL) PO ONE (20:00)
[2020-06-25] MEDS ORDERED: NITR-65 PO (20:01)
[2020-06-25] MEDS ORDERED: HEParin (CENTRAL IV FLUSH) 500 UNIT/5 ML SYR ONE (20:39)
[2020-06-25 20:46] VITALS: BP 176/86
== END 2020-06-25 20:46 | disposition home or self-care (01) ==
LOC: EDUNIT# 18:02 → ER 18:04
DX: S80.212A Abrasion, left knee, initial encounter (principal); S80.211A Abrasion, right knee, initial encounter; T14.8XXA Other injury of unspecified body region, initial encounter; M25.512 Pain in left shoulder; G89.29 Other chronic pain; M54.2 Cervicalgia; M54.9 Dorsalgia, unspecified; Z23 Encounter for immunization; E11.10 Type 2 diabetes mellitus with ketoacidosis without coma; N39.0 Urinary tract infection, site not specified; E11.43 Type 2 diabetes mellitus with diabetic autonomic (poly)neuropathy; K31.84 Gastroparesis; J42 Unspecified chronic bronchitis; I10 Essential (primary) hypertension; E78.00 Pure hypercholesterolemia, unspecified; G43.909 Migraine, unspecified, not intractable, without status migrainosus; K21.0 Gastro-esophageal reflux disease with esophagitis; K58.9 Irritable bowel syndrome, unspecified; F41.9 Anxiety disorder, unspecified; I25.10 Atherosclerotic heart disease of native coronary artery without angina pectoris; F17.210 Nicotine dependence, cigarettes, uncomplicated; Z88.6 Allergy status to analgesic agent; Z88.5 Allergy status to narcotic agent; Z88.8 Allergy status to other drugs, medicaments and biological substances; Z91.040 Latex allergy status; Z79.01 Long term (current) use of anticoagulants; Z79.82 Long term (current) use of aspirin; Z79.4 Long term (current) use of insulin; Z95.5 Presence of coronary angioplasty implant and graft; Z86.718 Personal history of other venous thrombosis and embolism; Z82.49 Family history of ischemic heart disease and other diseases of the circulatory system; Z80.1 Family history of malignant neoplasm of trachea, bronchus and lung; Z80.0 Family history of malignant neoplasm of digestive organs; W19.XXXA Unspecified fall, initial encounter
CPT/HCPCS: 51701; 70450; 70486; 71045; 71250; 72125; 72128; 72131; 73030; 73060; 73523; 74176; 80053; 80306; 81000; 82150; 82550; 82553; 83690; 83735; 83874; 83880; 84484; 85025; 85610; 85730; 87077; 87088; 87186; 93005; 93041; 99284; G0480 ×2; 36415; 80320; 80329; 90471; 90715; 96361; 96374

== ENCOUNTER → 2020-06-25 | Outpatient (CLI) | payer MEDICARE ==
[~2020-06-25] MED LIST changes: +APIX5TAB PO; +DIPH25TA65 PO; +GLYC1DRO OU; +INSU100I14 SC; +MELA5TAB14 PO; +NITR-65 PO
--- NOTE | 2020-06-25 15:04 | Diagnostic Imaging Report ---
INDICATION: Fall with pain in the left arm. TIME OF EXAM: 1:49 PM. TECHNIQUE: Two views of the left humerus were obtained. FINDINGS: The alignment at the shoulder and elbow appears normal. There is a suture anchor overlying the proximal humerus. No fracture is identified. There is no dislocation. IMPRESSION: No acute bony abnormality is detected. Dictated by: Dictated on workstation # [id number]
== END ==
LOC: RAD 13:17
PROVIDERS: ATTEND Family Medicine
DX: M79.622 Pain in left upper arm (principal); W19.XXXA Unspecified fall, initial encounter
CPT/HCPCS: 73060

== ENCOUNTER 2020-07-01 18:15 | Inpatient (IN) | payer MEDICARE ==
[~2020-07-01] VITALS: Ht 149.9 cm; Wt 62.1 kg
[~2020-07-01 18:15] MED LIST changes: +NITR-65 PO
[2020-07-01] MEDS ORDERED: NS IV 1000 ML 1,000 ML IV SCH ×2 (18:40→22:11)
[2020-07-01] MEDS ORDERED: cefTRIAXone FOR IV USE 1,000 MG in WATER (STERILE) FOR INJECTION 10 ML IV ONE (18:45)
--- NOTE | 2020-07-01 18:52 | ED General ---
General Stated Complaint: HIGH BLOOD SUGAR - OVER 600 Source of Information: Patient Exam Limitations: No Limitations (ENIO BOBBY MED STUDENT) History of Present Illness Date Seen by Provider: Jul 01, 2020 Time Seen by Provider: 18:30 Initial Comments Itzel Harper was seen today due to high blood sugar readings at home, as well as nausea and vomiting, dizziness and lightheadedness. She reports her blood sugars have read over 600 at home for the past four days, she attempted to lower her sugars on her own without success. During that time she has developed nausea and vomiting, and today she has had light headedness and dizziness, causing several falls. She does not report any injuries with her falls, she is on eliquis. Reports that she is taking eliquis due to peripheral clotting, which is being worked up by Dr. Calabrese and Dr. Cobb. She has not had any syncope. She reports being treated for a UTI in the ED on 06/25, was given a dose of rocephin and macrobid, which she is still taking. She has a chronic cough, which has been worsening over the past several days. Smokes 1 ppd cigarettes, d enies any history of COPD or asthma. She reports having diarrhea, as well as epigastric abdominal pain she attributes to vomiting. She also reports having diarrhea. Denies any fever or chills. Timing/Duration: 4-5 Days Severity: Moderate Modifying Factors: improves with Medication Associated Systoms: Nausea/Vomiting (ENIO BOBBY MED STUDENT) Initial Comments Patient present to ER one week ago for syncopal episode fall thought to be related to a UTI. After starting Macrobid about a day or 2 after that she began to experience blood sugars in excess of 600. Using her own insulin she's been trying to keep it down but she's been having frequent urination nausea and vomiting. She's tried some buom-txt-onjxfiv medicines unsuccessfully for her nausea. She did have one episode of loose stools today. No fevers chills. No new cough. (LATANYA HOLLINGSWORTH) Allergies and Home Medications Allergies Coded Allergies: ketorolac (Verified Allergy, Severe, ANAPHYLAXIS, PT TAKES ASA AT HOME, 03/06/19) ondansetron (Verified Allergy, Intermediate, RASH, 03/06/19) RASH/ HIVES scopolamine (Verified Allergy, Mild, Rash, 03/21/19) exenatide (Verified Allergy, Unknown, NAUSEA, 03/06/19) NON STOP VOMITING latex (Verified Allergy, Unknown, RASH, 03/06/19) metoclopramide (Verified Allergy, Unknown, RESTLESS LEGS, 03/06/19) erythromycin base (Verified Adverse Reaction, Unknown, 03/21/19) Home Medications Apixaban 5 Mg Tablet, 5 MG PO BID, (Reported) Aspirin 81 Mg Tablet.dr, 81 MG PO DAILY, (Reported) Atorvastatin Calcium 10 Mg Tablet, 10 MG PO HS, (Reported) LAST FILLED 01-03-2020 #60 Diphenhydramine HCl 25 Mg Tablet, 25-50 MG PO Q6H PRN for ALLERGY SYMPTOMS, (Reported) Gabapentin 800 Mg Tablet, 1,600 MG PO HS, (Reported) TAKES 2 (800MG) TABLETS Gabapentin 800 Mg Tablet, 800 MG PO DAILY, (Reported) Glycerin/Propylene Glycol 1 Each Droperette, 2 DROPS OU PRN PRN for DRY EYES, (Reported) Insulin Aspart 300 Units/3 Ml Solution, UNITS SC TIDAC, (Reported) USES PER SLIDING SCALE Insulin Detemir 100 Unit/1 Ml Insuln.pen, 25 UNIT SQ BID, (Reported) Melatonin 5 Mg Tablet, 5 MG PO HS, (Reported) Nitrofurantoin Monohyd/M-Cryst 100 Mg Capsule, 1 TAB PO BID Prescribed by: PURA PIÑA on 06/25/202000 Omeprazole 20 Mg Capsule.dr, 20 MG PO DAILY, (Reported) Oxycodone HCl/Acetaminophen 1 Each Tablet, 1 EACH PO Q4H PRN for PAIN-SEVERE Prescribed by: GERARDO RITTER on 06/18/20 104 Tramadol HCl 50 Mg Tablet, 50 MG PO Q6H PRN for PAIN-MODERATE (5-7), (Reported) Patient Home Medication List Home Medication List Reviewed: Yes (LATANYA HOLLINGSWORTH) Review of Systems Review of Systems Constitutional: No chills; dizziness; No fever EENTM: No nose congestion, No throat pain Respiratory: cough (chronic, but worse currently); No short of breath Cardiovascular: No chest pain, No palpitations, No syncope Gastrointestinal: abdominal pain (epigastric); No constipation; diarrhea, nausea, vomiting Genitourinary: dysuria; No frequency, No hesitancy (ENIO BOBBY) EENTM: No ear discharge, No hearing loss, No ear pain, No eye pain Musculoskeletal: No back pain, No gout Psychiatric/Neurological: Denies Headache, Denies Numbness, Denies Paresthesia (LATANYA HOLLINGSWORTH) All Other Systems Reviewed Negative Unless Noted: Yes (LATANYA HOLLINGSWORTH) Past Fhxdwis-Ybrrmo-Ebpsao Hx Patient Social History Alcohol Beverage of Choice: Wine Drug of Choice: NARCOTIC ABUSE Type Used: Cigarettes (1 ppd) 2nd Hand Smoke Exposure: No Recent Foreign Travel: No Contact w/Someone Who Travel: No Recent Hopitalizations: No (ENIO BOBBY) Alcohol Use: Occasionally Uses Smoking Status: Current Everyday Smoker (LATANYA HOLLINGSWORTH) Immunizations Up To Date Tetanus Booster (TDap): Unknown PED Vaccines UTD: No Date of Pneumonia Vaccine: Nov 06, 2019 Date of Influenza Vaccine: Nov 22, 2019 (ENIO BOBBY) Seasonal Allergies Seasonal Allergies: Yes (ENIO BOBBY) Past Medical History Surgeries: Yes (LITHOTRIPSY;LUMBAR SURGERY X 4;BMT'S;EGD'S WITH ESOPHAGEAL DILATIONS;) Cardiac, Coronary Stent, Ear Surgery, Gallbladder, Orthopedic, Renal Respiratory: Yes Chronic Bronchitis, Sleep Apnea Currently Using CPAP: No Currently Using BIPAP: No Cardiac: Yes (DVT'S IN ARMS; CARDIAC STENT X 1; CAROTID DISEASE;LINQ DEVICE) Chronic Edema/Swelling, Coronary Artery Disease, Deep Vein Thrombosis, High Cholesterol, Hypertension, Palpitations Neurological: Yes (NEUROPATHY IN HANDS AND FEET) Headaches /Migraines, Neuropathy 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 Disorders: No 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 Disorders: Denies FREE LANCE MODEL History: Menopausal Sexually Transmitted Disease: No HIV/AIDS: No Genitourinary: Yes Bladder Infection, Kidney Stones, Renal Failure Gastrointestinal: Yes (GASTRITIS;ESOPH STRICTURE/DILATION;GASTROPARESIS-CHRONIC N/V/ABD PAIN;DAVID) Gastroesophageal Reflux, Diverticulosis, Esophagitis, Irritable Bowel Musculoskeletal: Yes (CHRONIC GENERALIZED PAIN;CHRONIC BILAT SHOULDER PAIN;CHRONIC NECK PAIN ) Degenerate Disk Disease, Fibromyalgia, Chronic Back Pain Endocrine: Yes (NON-COMPLAINT;MULTIPLE EPISODES OF DKA-EASILY CONTROLLED ON INSULIN IN HOSP) Diabetes, Insulin dep HEENT: Yes (GLASSES; S/P BMT'S) Chronic Ear Infection Loss of Vision: Bilateral Hearing Impairment: Hard of Hearing Cancer: No Psychosocial: Yes Anxiety Integumentary: Yes Psoriasis Blood Disorders: No Adverse Reaction/Blood Tranf: No (ENIO BOBBY STUDENT) Family Medical History Cancer of mouth 19 FATHER ( of esophogeal cancer.) Cardiovascular disease 19 MOTHER G8 BROTHER Completed stroke 19 FATHER G8 BROTHER Diabetes mellitus G8 BROTHER FH: lung cancer 19 MOTHER Hypertension 19 FATHER Kidney disease 19 FATHER Myocardial infarction 19 MOTHER G8 BROTHER Respiratory disorder No Family History of: AIDS CAD Over 55 Years Old, CVA, Diabetes, GI Disease, Renal Disease PSH: -LINQ DEVICE PLACED 11/09/19 FOR REPORTED PALPITATIONS X 6 MONTHS, SINCE PERCOCET WAS DC'D -MULTIPLE CARDIAC CATHS--STENT X 1 TO LAD 07/13/15. LAST CATH 01/18/19--NO INTERVENTION -LUMBAR SPINE FUSION X 3--12/2002, 04/2007, AND 05/2007 -LUMBAR DISCECTOMY 10/2000--? LAMINECTOMY? -CERVICAL SPINE FUSION 11/2006 -CHOLECYSTECTOMY 1983 -BMT'S -LITHOTRIPSY AND RIGHT URETERAL STENT -EGD'S WITH ESOPHAGEAL DILATIONS -COLONOSCOPIES, LAST ONE 03/08/19 -PORT RIGHT CHEST -LEFT SHOULDER ROTATOR CUFF REPAIR 05/01/20--DR. PALACIOS -CONTINUOUS GLUCOSE MONITOR PRESENT 06/25/20--LLQ OF ABDOMEN (ENIO BOBBY MED STUDENT) Physical Exam Vital Signs Vital Signs - First Documented 07/01/20 18:20 Pulse 106 Resp 20 B/P (MAP) 177/101 (126) Pulse Ox 99 O2 Delivery Room Air (LATANYA HOLLINGSWORTH) Vital Signs Capillary Refill : (ENIO BOBBY MED STUDENT) Height, Weight, BMI Height: 5'1.00" Weight: 122lbs. 1.0oz. 55.569285yh; 28.00 BMI Method:Estimated General Appearance: Anxious, Mild Distress HEENT: PERRL/EOMI; No Scleral Icterus (L), No Scleral Icterus (R) Neck: Full Range of Motion, Normal Inspection, Non Tender, Supple Respiratory: Lungs Clear, Normal Breath Sounds, No Accessory Muscle Use, No Respiratory Distress Cardiovascular: Regular Rate, Rhythm, No Edema, No JVD, No Murmur, Normal Peripheral Pulses Extremity: Non Tender, No Calf Tenderness, No Pedal Edema Neurologic/Psychiatric: Alert, Oriented x3, Normal Mood/Affect (ENIO BOBBY STUDENT) HEENT: No Moist Mucous Membranes (dry oral mucosa) Gastrointestinal: Normal Bowel Sounds, Soft, Tenderness (all 4 quadrants, especially epigastric) Extremity: Normal Capillary Refill, Normal Inspection Skin: Normal Color, Warm/Dry (LATANYA HOLLINGSWORTH) Procedures/Interventions Date of ETT Placement: Dec 30, 2019 Time of ETT Placement: 0750 (ENIO BOBBY STUDENT) Progress/Results/Core Measures Suspected Sepsis SIRS Temperature: Pulse: Respiratory Rate: Blood Pressure / Mean: (ENIO BOBBY STUDENT) Results/Orders Lab Results Laboratory Tests Test 07/01/20 18:30 07/01/20 18:35 07/01/20 19:37 Range/Units Glucometer > 600 *H 70-110 MG/DL White Blood Count 11.9 H 4.3-11.0 10^3/uL Red Blood Count 4.24 L 4.35-5.85 10^6/uL Hemoglobin 12.6 11.5-16.0 G/DL Hematocrit 36 35-52 % Mean Corpuscular Volume 84 80-99 FL Mean Corpuscular Hemoglobin 30 25-34 PG Mean Corpuscular Hemoglobin Concent 35 32-36 G/DL Red Cell Distribution Width 13.2 10.0-14.5 % Platelet Count 366 130-400 10^3/uL Mean Platelet Volume 10.8 H 7.4-10.4 FL Neutrophils (%) (Auto) 72 42-75 % Lymphocytes (%) (Auto) 23 12-44 % Monocytes (%) (Auto) 3 0-12 % Eosinophils (%) (Auto) 1 0-10 % Basophils (%) (Auto) 1 0-10 % Neutrophils # (Auto) 8.6 H 1.8-7.8 X 10^3 Lymphocytes # (Auto) 2.7 1.0-4.0 X 10^3 Monocytes # (Auto) 0.4 0.0-1.0 X 10^3 Eosinophils # (Auto) 0.1 0.0-0.3 10^3/uL Basophils # (Auto) 0.1 0.0-0.1 10^3/uL Prothrombin Time 16.0 H 12.2-14.7 SEC INR Comment 1.2 0.8-1.4 Activated Partial Thromboplast Time 80 H 24-35 SEC Sodium Level 129 L 135-145 MMOL/L Potassium Level 4.9 3.6-5.0 MMOL/L Chloride Level 96 L 98-107 MMOL/L Carbon Dioxide Level 15 L 21-32 MMOL/L Anion Gap 18 H 5-14 MMOL/L Blood Urea Nitrogen 30 H 7-18 MG/DL Creatinine 1.70 H 0.60-1.30 MG/DL Estimat Glomerular Filtration Rate 31 BUN/Creatinine Ratio 18 Glucose Level 787 *H 70-105 MG/DL Calcium Level 8.8 8.5-10.1 MG/DL Corrected Calcium 8.9 8.5-10.1 MG/DL Magnesium Level 2.1 1.6-2.4 MG/DL Total Bilirubin 0.3 0.1-1.0 MG/DL Aspartate Amino Transf (AST/SGOT) 8 5-34 U/L Alanine Aminotransferase (ALT/SGPT) 8 0-55 U/L Alkaline Phosphatase 119 40-136 U/L Total Protein 7.5 6.4-8.2 GM/DL Albumin 3.9 3.2-4.5 GM/DL Lipase 11 8-78 U/L Smear Scan YES Urine Color YELLOW Urine Clarity CLEAR Urine pH 6.0 5-9 Urine Specific [place] 1.010 L 1.016-1.022 Urine Protein 2+ H NEGATIVE Urine Glucose (UA) 3+ H NEGATIVE Urine Ketones 3+ H NEGATIVE Urine Nitrite NEGATIVE NEGATIVE Urine Bilirubin NEGATIVE NEGATIVE Urine Urobilinogen 0.2 < = 1.0 MG/DL Urine Leukocyte Esterase NEGATIVE NEGATIVE Urine RBC (Auto) TRACE-I NEGATIVE Urine RBC 0-2 /HPF Urine WBC 2-5 /HPF Urine Crystals PRESENT H /LPF Urine Amorphous Sediment RARE ANITHA URATES H /LPF Urine Bacteria TRACE /HPF Urine Casts NONE /LPF Urine Mucus NEGATIVE /LPF Urine Culture Indicated CULTURE PENDING (LATANYA HOLLINGSWORTH) My Orders Orders - LATANYA HOLLINGSWORTH Accucheck Stat ONCE (07/01/20 18:21) Cbc With Automated Diff (07/01/20 18:40) Comprehensive Metabolic Panel (07/01/20 18:40) Blood Culture (07/01/20 18:40) Sputum Culture (07/01/20 18:40) Urinalysis (07/01/20 18:40) Urine Culture (07/01/20 18:40) Protime With Inr (07/01/20 18:40) Partial Thromboplastin Time (07/01/20 18:40) Chest 1 View, Ap/Pa Only (07/01/20 18:40) Ed Iv/Invasive Line Start (07/01/20 18:40) Ed Iv/Invasive Line Start (07/01/20 18:40) Vital Signs Adult Sepsis Patie Q15M (07/01/20 18:40) O2 (07/01/20 18:40) Remove Rings In Anticipation O (07/01/20 18:40) Ns Iv 1000 Ml (Sodium Chloride 0.9%) (07/01/20 18:40) Ceftriaxone For Iv Use (Rocephin For I (07/01/20 18:45) Promethazine Injection (Phenergan Injec (07/01/20 19:00) Diphenhydramine Injection (Benadryl Inje (07/01/20 19:00) Magnesium (07/01/20 18:57) Insulin (Regular) Human (Novolin R (Per (07/01/20 19:15) Lipase (07/01/20 19:06) Accucheck Stat ONCE (07/01/20 20:14) (LATANYA HOLLINGSWORTH) Medications Given in ED Current Medications Medications Dose Ordered Sig/Jackie Route Start Time Stop Time Status Last Admin Dose Admin Ceftriaxone Sodium 1000 mg/ Sterile Water 10 ml @ 200 mls/hr ONCE ONCE IV 07/01/20 18:45 07/01/20 18:47 DC 07/01/20 19:20 200 MLS/HR Diphenhydramine HCl 25 mg ONCE ONCE IVP 07/01/20 19:00 07/01/20 19:01 DC 07/01/20 19:20 25 MG Insulin Human Regular 6 unit ONCE ONCE IV 07/01/20 19:15 07/01/20 19:16 DC 07/01/20 19:21 6 UNIT Promethazine HCl 25 mg ONCE ONCE IVP 07/01/20 19:00 07/01/20 19:01 DC 07/01/20 19:20 25 MG (LATANYA HOLLINGSWORTH) Vital Signs/I&O 07/01/20 18:20 Pulse 106 Resp 20 B/P (MAP) 177/101 (126) Pulse Ox 99 O2 Delivery Room Air (LATANYA HOLLINGSWORTH) Vital Signs/I&O Capillary Refill : (ENIO BOBBY MED STUDENT) Progress Note #1: Time: 19:07 Progress Note Patient will be given 2 L of fluid was greater than 30 mL/kg. Her potassium is over for sore and give her 6 units of IV regular insulin. White count still pending but isn't elevated she would be considered septic. Rocephin was given to cover for her UTI. DKA versus HHS. I attest that I saw this patient alongside the medical student and agree with his documented history, physical exam and review of systems except as otherwise noted. Progress Note #2: Time: 20:25 Progress Note The patient's nausea is marginally better. She's unable to tolerate Zofran or Reglan so we'll give her an alcohol packet to sniff. She does not think she can tolerate a pill and typically takes tramadol for her pain at home. We are going to give her IV fentanyl for her chronic back pain and put her upstairs on an insulin drip for her diabetic ketoacidosis. (LATANYA HOLLINGSWORTH) Diagnostic Imaging Diagonstic Imaging: Xray Plain Films/CT/US/NM/MRI: chest (1 view) Comments NAME: ITZEL HARPER MED REC#: [id number] PT STATUS: REG ER : 1960 PHYSICIAN: LATANYA HOLLINGSWORTH MD ADMIT DATE: 07/01/20/ER Signed Date of Exam:07/01/20 CHEST 1 VIEW, AP/PA ONLY INDICATION: Sepsis COMPARISON: 06/25/2020 FINDINGS: Single view of the chest demonstrates clear lungs bilaterally. The heart is normal. There is no pneumothorax. The Port-A-Cath is stable. IMPRESSION: Negative chest. Dictated by: Dictated on workstation # [id number] Dict: 07/01/201855 Trans: 07/01/201907 [facility] [id number] Interpreted by: TIA SAWYER Electronically signed by: TIA SAWYER 07/01/201907 Reviewed: Reviewed by Me (LATANYA HOLLINGSWORTH) Departure Communication (Admissions) Time/Spoke to Admitting Phy: 21:00 Discussed the case with Dr. Thurman and he agrees with admission to the hospital for insulin drip for diabetic ketoacidosis. (LATANYA HOLLINGSWORTH) Impression Primary Impression: Diabetic ketoacidosis Qualified Codes: E08.10 - Diabetes mellitus due to underlying condition with ketoacidosis without coma Additional Impressions: UTI (urinary tract infection) Qualified Codes: N30.00 - Acute cystitis without hematuria LANE (acute kidney injury) Disposition: ADMITTED INPATIENT Condition: Critical Admissions Decision to Admit Reason: Admit from ER (General) Decision to Admit/Date: Jul 01, 2020 Time/Decision to Admit Time: 19:15 (LATANYA HOLLINGSWORTH) Departure-Patient Inst. Referrals: CINDY CALABRESE DO (PCP/Family) Primary Care Physician ENIO BOBBY MED STUDENT Jul 01, 2020 18:52 LATANYA HOLLINGSWORTH Jul 01, 2020 19:11
[2020-07-01 18:56] LABS: BASOPHILS # (AUTO) 0.1 10^3/uL (0.0-0.1); BASOPHILS % (AUTO) 1 % (0-10); EOSINOPHILS # (AUTO) 0.1 10^3/uL (0.0-0.3); EOSINOPHILS % (AUTO) 1 % (0-10); HEMATOCRIT 36 % (35-52); HEMOGLOBIN 12.6 G/DL (11.5-16.0); LYMPHOCYTES # (AUTO) 2.7 X 10^3 (1.0-4.0); LYMPHOCYTES % (AUTO) 23 % (12-44); MEAN CORPUSCULAR HEMOGLOBIN 30 PG (25-34); MEAN CORPUSCULAR HGB CONC 35 G/DL (32-36); MEAN CORPUSCULAR VOLUME 84 FL (80-99); MEAN PLATELET VOLUME 10.8 FL (7.4-10.4); MONOCYTES # (AUTO) 0.4 X 10^3 (0.0-1.0); MONOCYTES % (AUTO) 3 % (0-12); NEUTROPHILS # (AUTO) 8.6 X 10^3 (1.8-7.8); NEUTROPHILS % (AUTO) 72 % (42-75); PLATELET COUNT 366 10^3/uL (130-400); RED CELL DISTRIBUTION WIDTH 13.2 % (10.0-14.5); WHITE BLOOD COUNT 11.9 10^3/uL (4.3-11.0)
[2020-07-01 18:57] LABS: ALBUMIN 3.9 GM/DL (3.2-4.5)
[2020-07-01 18:58] LABS: POTASSIUM 4.9 MMOL/L (3.6-5.0)
[2020-07-01 18:59] LABS: CALCIUM 8.8 MG/DL (8.5-10.1)
[2020-07-01 19:00] LABS: TOTAL PROTEIN 7.5 GM/DL (6.4-8.2)
[2020-07-01] MEDS ORDERED: diphenhydrAMINE 50 MG/ML INJ (BENADRYL) IVP ONE (19:00)
[2020-07-01] MEDS ORDERED: PROMETHAZINE INJ 25 MG/ML (PHENERGAN) AMP IVP ONE (19:00)
--- NOTE | 2020-07-01 19:01 | Diagnostic Imaging Report ---
INDICATION: Sepsis COMPARISON: 06/25/2020 FINDINGS: Single view of the chest demonstrates clear lungs bilaterally. The heart is normal. There is no pneumothorax. The Port-A-Cath is stable. IMPRESSION: Negative chest. Dictated by: Dictated on workstation # [id number]
[2020-07-01 19:02] LABS: BILIRUBIN,TOTAL 0.3 MG/DL (0.1-1.0); INR 1.2 (0.8-1.4)
[2020-07-01 19:04] LABS: CREATININE SERUM 1.7 MG/DL (0.60-1.30)
[2020-07-01 19:05] LABS: SMEAR SCAN COMMENT YES
[2020-07-01] MEDS ORDERED: inSUlin (REGULAR) HUMAN 1 UNIT/0.01 ML (CHARGE PER UNIT) IV ONE (19:15)
[2020-07-01 19:48] LABS: BILIRUBIN,URINE NEGATIVE (NEGATIVE); CLARITY,URINE CLEAR; COLOR,URINE YELLOW; GLUCOSE, URINE (UA) 3+ (NEGATIVE); KETONES,URINE 3+ (NEGATIVE); LEUKOCYTE ESTERASE ,URINE NEGATIVE (NEGATIVE); NITRITE,URINE NEGATIVE (NEGATIVE); PROTEIN,URINE 2+ (NEGATIVE)
[2020-07-01 20:05] LABS: AMORPHOUS SEDIMENT,UR RARE AMOR URATES /LPF; BACTERIA,URINE TRACE /HPF; RBC,URINE 0-2 /HPF
[2020-07-01] MEDS ORDERED: NS IV 1000 ML 1,000 ML ONE (21:44)
[2020-07-01] MEDS ORDERED: fentaNYL INJECTION 100 MCG/2 ML AMP ONE (21:44)
[2020-07-01 21:45] VITALS: BP 138/69
[2020-07-01] MEDS: fentaNYL INJECTION 100 MCG/2 ML AMP IV PRN (21:45)
[2020-07-01 22:00] VITALS: BP 126/67
[2020-07-01 22:15] VITALS: BP 134/69
[2020-07-01] MEDS ORDERED: ACETAMINOPHEN 500 MG TAB (TYLENOL) PO PRN (22:15)
[2020-07-01] MEDS ORDERED: D5 1/2 NS 1000 ML IV SOLUTION 1,000 ML IV SCH (22:15)
[2020-07-01 22:30] VITALS: BP 118/81
[2020-07-01 22:41] LABS: HEMOGLOBIN 11.1 G/DL (11.5-16.0); MEAN PLATELET VOLUME 10.6 FL (7.4-10.4); RED CELL DISTRIBUTION WIDTH 13.2 % (10.0-14.5); WHITE BLOOD COUNT 11.5 10^3/uL (4.3-11.0)
[2020-07-01 22:59] LABS: CALCIUM 8.3 MG/DL (8.5-10.1)
[2020-07-01 23:00] VITALS: BP 162/90
[2020-07-01 23:03] LABS: CREATININE SERUM 1.48 MG/DL (0.60-1.30)
[2020-07-01] MEDS: 1/2 NS IV SOLUTION 1,000 ML IV SCH (23:04)
[2020-07-01] MEDS: GABAPENTIN 400 MG (NEURONTIN) CAP PO SCH (23:05)
[2020-07-01 23:30] VITALS: BP 159/76
[2020-07-01] MEDS: POTASSIUM CL 10MEQ/50ML IVPB 50 ML IV SCH (23:33)
[2020-07-01] MEDS: APIXABAN 5 MG (ELIQUIS) TABLET PO SCH (23:35)
[2020-07-02] VITALS (17 sets, daily range): BP systolic 94–187; BP diastolic 69–92
[2020-07-02 00:24] LABS: POTASSIUM 3.7 MMOL/L (3.6-5.0)
[2020-07-02 00:25] LABS: CALCIUM 8.1 MG/DL (8.5-10.1)
[2020-07-02 00:29] LABS: CREATININE SERUM 1.26 MG/DL (0.60-1.30)
[2020-07-02] MEDS: diphenhydrAMINE 50 MG/ML INJ (BENADRYL) IV PRN ×4 (00:54→22:50)
[2020-07-02] MEDS: PROMETHAZINE INJ 25 MG/ML (PHENERGAN) AMP IV PRN ×4 (00:54→22:50)
[2020-07-02] MEDS: fentaNYL INJECTION 100 MCG/2 ML AMP IV PRN ×2 (01:46→05:47)
[2020-07-02] MEDS: POTASSIUM CL 10MEQ/50ML IVPB 50 ML IV SCH ×3 (03:08→09:02)
[2020-07-02 03:11] LABS: BASOPHILS # (AUTO) 0.1 10^3/uL (0.0-0.1); BASOPHILS % (AUTO) 1 % (0-10); EOSINOPHILS # (AUTO) 0.3 10^3/uL (0.0-0.3); EOSINOPHILS % (AUTO) 3 % (0-10); HEMATOCRIT 30 % (35-52); HEMOGLOBIN 10.6 G/DL (11.5-16.0); LYMPHOCYTES # (AUTO) 4.1 X 10^3 (1.0-4.0); LYMPHOCYTES % (AUTO) 35 % (12-44); MEAN CORPUSCULAR HEMOGLOBIN 30 PG (25-34); MEAN CORPUSCULAR HGB CONC 36 G/DL (32-36); MEAN CORPUSCULAR VOLUME 84 FL (80-99); MEAN PLATELET VOLUME 10.3 FL (7.4-10.4); MONOCYTES # (AUTO) 0.7 X 10^3 (0.0-1.0); MONOCYTES % (AUTO) 6 % (0-12); NEUTROPHILS # (AUTO) 6.5 X 10^3 (1.8-7.8); NEUTROPHILS % (AUTO) 55 % (42-75); PLATELET COUNT 290 10^3/uL (130-400); RED CELL DISTRIBUTION WIDTH 13.2 % (10.0-14.5); WHITE BLOOD COUNT 11.7 10^3/uL (4.3-11.0)
[2020-07-02 03:21] LABS: ALBUMIN 3.1 GM/DL (3.2-4.5)
[2020-07-02 03:24] LABS: TOTAL PROTEIN 5.9 GM/DL (6.4-8.2)
[2020-07-02 03:26] LABS: BILIRUBIN,TOTAL 0.2 MG/DL (0.1-1.0)
[2020-07-02 03:28] LABS: CREATININE SERUM 1.15 MG/DL (0.60-1.30)
[2020-07-02 03:31] LABS: MAGNESIUM 1.8 MG/DL (1.6-2.4)
[2020-07-02] MEDS: 1/2 NS IV SOLUTION 1,000 ML IV SCH ×4 (04:49→13:55)
--- NOTE | 2020-07-02 06:05 | Pulmonary Consultation ---
History of Present Illness History of Present Illness Date Seen by Provider: Jul 02, 2020 Time Seen by Provider: 06:00 Date of Admission Allergies and Home Medications Allergies Coded Allergies: ketorolac (Verified Allergy, Severe, ANAPHYLAXIS, PT TAKES ASA AT HOME, 03/06/19) ondansetron (Verified Allergy, Intermediate, RASH, 03/06/19) RASH/ HIVES scopolamine (Verified Allergy, Mild, Rash, 03/21/19) exenatide (Verified Allergy, Unknown, NAUSEA, 03/06/19) NON STOP VOMITING latex (Verified Allergy, Unknown, RASH, 03/06/19) metoclopramide (Verified Allergy, Unknown, RESTLESS LEGS, 03/06/19) erythromycin base (Verified Adverse Reaction, Unknown, 03/21/19) Home Medications Apixaban 5 Mg Tablet, 5 MG PO BID, (Reported) Aspirin 81 Mg Tablet.dr, 81 MG PO DAILY, (Reported) Atorvastatin Calcium 10 Mg Tablet, 10 MG PO HS, (Reported) LAST FILLED 01-03-2020 #60 Diphenhydramine HCl 25 Mg Tablet, 25-50 MG PO Q6H PRN for ALLERGY SYMPTOMS, (Reported) Gabapentin 800 Mg Tablet, 1,600 MG PO HS, (Reported) TAKES 2 (800MG) TABLETS Gabapentin 800 Mg Tablet, 800 MG PO DAILY, (Reported) Glycerin/Propylene Glycol 1 Each Droperette, 2 DROPS OU PRN PRN for DRY EYES, (Reported) Insulin Aspart 300 Units/3 Ml Solution, UNITS SC TIDAC, (Reported) USES PER SLIDING SCALE Insulin Detemir 100 Unit/1 Ml Insuln.pen, 25 UNIT SQ BID, (Reported) Melatonin 5 Mg Tablet, 5 MG PO HS, (Reported) Nitrofurantoin Monohyd/M-Cryst 100 Mg Capsule, 1 TAB PO BID Prescribed by: PURA PIÑA on 06/25/202000 Omeprazole 20 Mg Capsule.dr, 20 MG PO DAILY, (Reported) Oxycodone HCl/Acetaminophen 1 Each Tablet, 1 EACH PO Q4H PRN for PAIN-SEVERE Prescribed by: GERARDO RITTER on 06/18/20 1047 Tramadol HCl 50 Mg Tablet, 50 MG PO Q6H PRN for PAIN-MODERATE (5-7), (Reported) Past Ibemtnh-Cwmpbx-Tfhhfp Hx Patient Social History Alcohol Use: Occasionally Uses Number of Drinks Today: HH Alcohol Beverage of Choice: Wine Recreational Drug Use: Yes Drug of Choice: NARCOTIC ABUSE Smoking Status: Current Everyday Smoker Type Used: Cigarettes (1 ppd) Former Smoker, Quit: Nov 10, 2017 2nd Hand Smoke Exposure: No Recent Foreign Travel: No Contact w/Someone Who Travel: No Recent Infectious Disease Expo: No Recent Hopitalizations: No Immunizations Up To Date Tetanus Booster (TDap): Unknown PED Vaccines UTD: No Date of Pneumonia Vaccine: Nov 06, 2019 Date of Influenza Vaccine: Nov 22, 2019 Seasonal Allergies Seasonal Allergies: Yes Past Medical History Surgeries: Yes (LITHOTRIPSY;LUMBAR SURGERY X 4;BMT'S;EGD'S WITH ESOPHAGEAL DILATIONS;) Cardiac, Coronary Stent, Ear Surgery, Gallbladder, Orthopedic, Renal Respiratory: Yes Chronic Bronchitis, Sleep Apnea Currently Using CPAP: No Currently Using BIPAP: No Cardiac: Yes (DVT'S IN ARMS; CARDIAC STENT X 1; CAROTID DISEASE;LINQ DEVICE) Chronic Edema/Swelling, Coronary Artery Disease, Deep Vein Thrombosis, High Cholesterol, Hypertension, Palpitations Neurological: Yes (NEUROPATHY IN HANDS AND FEET) Headaches /Migraines, Neuropathy 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 Disorders: No 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 Disorders: Denies [employer] History: Menopausal Sexually Transmitted Disease: No HIV/AIDS: No Genitourinary: Yes Bladder Infection, Kidney Stones, Renal Failure Gastrointestinal: Yes (GASTRITIS;ESOPH STRICTURE/DILATION;GASTROPARESIS-CHRONIC N/V/ABD PAIN;DAVID) Gastroesophageal Reflux, Diverticulosis, Esophagitis, Irritable Bowel Musculoskeletal: Yes (CHRONIC GENERALIZED PAIN;CHRONIC BILAT SHOULDER PAIN;CHRONIC NECK PAIN ) Degenerate Disk Disease, Fibromyalgia, Chronic Back Pain Endocrine: Yes (NON-COMPLAINT;MULTIPLE EPISODES OF DKA-EASILY CONTROLLED ON INSULIN IN HOSP) Diabetes, Insulin dep HEENT: Yes (GLASSES; S/P BMT'S) Chronic Ear Infection Loss of Vision: Bilateral Hearing Impairment: Hard of Hearing Cancer: No Psychosocial: Yes Anxiety Integumentary: Yes Psoriasis Blood Disorders: No Adverse Reaction/Blood Tranf: No Family Medical History Cancer of mouth 19 FATHER ( of esophogeal cancer.) Cardiovascular disease 19 MOTHER G8 BROTHER Completed stroke 19 FATHER G8 BROTHER Diabetes mellitus G8 BROTHER FH: lung cancer 19 MOTHER Hypertension 19 FATHER Kidney disease 19 FATHER Myocardial infarction 19 MOTHER G8 BROTHER Respiratory disorder No Family History of: AIDS CAD Over 55 Years Old, CVA, Diabetes, GI Disease, Renal Disease PSH: -LINQ DEVICE PLACED 11/09/19 FOR REPORTED PALPITATIONS X 6 MONTHS, SINCE PERCOCET WAS DC'D -MULTIPLE CARDIAC CATHS--STENT X 1 TO LAD 07/13/15. LAST CATH 01/18/19--NO INTERVENTION -LUMBAR SPINE FUSION X 3--12/2002, 04/2007, AND 05/2007 -LUMBAR DISCECTOMY 10/2000--? LAMINECTOMY? -CERVICAL SPINE FUSION 11/2006 -CHOLECYSTECTOMY 1984 -BMT'S -LITHOTRIPSY AND RIGHT URETERAL STENT -EGD'S WITH ESOPHAGEAL DILATIONS -COLONOSCOPIES, LAST ONE 03/08/19 -PORT RIGHT CHEST -LEFT SHOULDER ROTATOR CUFF REPAIR 05/01/20--DR. PALCAIOS -CONTINUOUS GLUCOSE MONITOR PRESENT 06/25/20--LLQ OF ABDOMEN Review of Systems Time Seen by Provider: 06:07 Sepsis Event Evaluation Height, Weight, BMI Height: 5'1.00" Weight: 122lbs. 1.0oz. 55.849624zc; 27.01 BMI Method:Estimated Exam Exam Vital Signs Date Time Temp Pulse Resp B/P (MAP) Pulse Ox O2 Delivery O2 Flow Rate FiO2 07/02/20 04:00 36.5 07/02/20 04:00 70 20 158/84 (108) 96 Room Air 07/02/20 04:00 98 Room Air 07/02/20 03:00 77 19 155/74 (101) 97 Room Air 07/02/20 02:00 74 11 155/86 (109) 97 Room Air 07/02/20 01:00 80 07/02/20 01:00 80 22 144/89 (107) 99 Room Air 07/02/20 00:00 36.6 07/02/20 00:00 83 13 153/69 (97) 98 Room Air 07/01/20 23:30 84 28 159/76 (103) 99 Room Air 07/01/20 23:00 76 19 162/90 (114) 100 Room Air 07/01/20 22:30 79 9 118/81 (93) 98 Room Air 07/01/20 22:15 83 13 134/69 (90) 96 Room Air 07/01/20 22:15 100 07/01/20 22:00 83 12 126/67 (86) 96 Room Air 07/01/20 22:00 Room Air 07/01/20 21:45 92 17 138/69 (92) 98 Room Air 07/01/20 21:45 37.0 07/01/20 21:29 96 15 180/75 97 Room Air 07/01/20 18:20 106 20 177/101 (126) 99 Room Air I & O 07/02/20 07:00 Intake Total 2110 ml Output Total 300 ml Balance 1810 ml Height & Weight Height: 5'1.00" Weight: 122lbs. 1.0oz. 55.531883sh; 27.01 BMI Method:Estimated General Appearance: Anxious, Mild Distress HEENT: No Moist Mucous Membranes (dry oral mucosa) Neck: Full Range of Motion, Normal Inspection, Non Tender, Supple Respiratory: Lungs Clear, Normal Breath Sounds, No Accessory Muscle Use, No Respiratory Distress Cardiovascular: Regular Rate, Rhythm, No Edema, No JVD, No Murmur, Normal Peripheral Pulses Capillary Refill: Less Than 3 Seconds Extremity: Normal Capillary Refill, Normal Inspection Neurologic/Psychiatric: Alert, Oriented x3, Normal Mood/Affect Skin: Normal Color, Warm/Dry Results Lab Laboratory Tests 07/01/20 18:35 07/01/20 22:27 07/02/20 00:04 07/02/20 03:00 Assessment/Plan Assessment/Plan Acute DKA - improving -DKA protocol -Will probably be able to D/c insulin gtt today LANE -IVF and monitor Hypophos -replace KIM FUNEZ DO Jul 02, 2020 06:05
[2020-07-02 06:40] LABS: CHLORIDE 112 MMOL/L (98-107); POTASSIUM 4.2 MMOL/L (3.6-5.0); SODIUM 138 MMOL/L (135-145)
[2020-07-02 06:41] LABS: CALCIUM 8.3 MG/DL (8.5-10.1); GLUCOSE 111 MG/DL (70-105)
[2020-07-02 06:43] LABS: CARBON DIOXIDE 20 MMOL/L (21-32)
[2020-07-02 06:45] LABS: CREATININE SERUM 0.89 MG/DL (0.60-1.30); GFR ESTIMATED > 60
[2020-07-02 06:46] LABS: BUN/CREATININE RATIO 24
[2020-07-02] MEDS: APIXABAN 5 MG (ELIQUIS) TABLET PO SCH ×2 (07:55→21:33)
[2020-07-02] MEDS: ASPIRIN 81 MG CHEW (CHILDREN'S ASA) PO SCH (07:55)
[2020-07-02] MEDS: GABAPENTIN 400 MG (NEURONTIN) CAP PO SCH ×2 (07:55→21:33)
[2020-07-02] MEDS: PANTOPRAZOLE 40 MG (PROTONIX) TAB PO SCH (07:55)
--- NOTE | 2020-07-02 08:38 | History & Physical-Hospitalist ---
History of Present Illness HPI/Chief Complaint Pt is a 60yoCF with a PMH of IDDMII, HTN, and chronic pain who presented to the ER due to elevated blood sugar and nausea and vomiting. She was diagnosed with a UTI on 06/25 in the ER here and was prescribed oral antibiotics. She was taking her antibiotics as prescribed until last night when she couldn't keep anything down. Her blood sugars has consistently been around 600 but she was unable to get it to the 600s yesterday so she decided to seek care. On arrival to the ER she was found to be in DKA and was admitted for an insulin gtt. This morning she states she is feeling better but is weak. Otherwise no complaints. Source: patient Date Seen 07/02/20 Time Seen by a Provider: 08:20 Attending Physician Dario Thurman MD PCP Gerardo Greenwood DO Referring Physician Date of Admission Jul 01, 2020 at 20:20 Home Medications & Allergies Home Medications Reviewed patient Home Medication Reconciliation performed by pharmacy medication reconciliations denture technician and/or nursing. Patients Allergies have been reviewed. Allergies Allergies Coded Allergies ketorolac (Verified Allergy, Severe, ANAPHYLAXIS, PT TAKES ASA AT HOME, 03/06/19) ondansetron (Verified Allergy, Intermediate, RASH, 03/06/19) RASH/ HIVES scopolamine (Verified Allergy, Mild, Rash, 03/21/19) exenatide (Verified Allergy, Unknown, NAUSEA, 03/06/19) NON STOP VOMITING latex (Verified Allergy, Unknown, RASH, 03/06/19) metoclopramide (Verified Allergy, Unknown, RESTLESS LEGS, 03/06/19) erythromycin base (Verified Adverse Reaction, Unknown, 03/21/19) Past Mgeegci-Bzblpn-Ustklc Hx Past Med/Social Hx: Reviewed Nursing Past Med/Soc Hx Patient Social History Alcohol Use: Occasionally Uses Alcohol Beverage of Choice: Wine Recreational Drug Use: Yes Drug of Choice: NARCOTIC ABUSE Smoking Status: Current Everyday Smoker Former Smoker, Quit: Nov 10, 2017 Type Used: Cigarettes (1 ppd) 2nd Hand Smoke Exposure: No Recent Foreign Travel: No Contact w/other who traveled: No Recent Hopitalizations: No Recent Infectious Disease Expo: No Immunizations Up To Date Tetanus Booster (TDap): Unknown Pediatric: No Date of Pneumonia Vaccine: Nov 06, 2019 Date of Influenza Vaccine: Nov 22, 2019 Seasonal Allergies Seasonal Allergies: Yes Past Medical History Surgeries: Cardiac, Coronary Stent, Ear Surgery, Gallbladder, Orthopedic, Renal Respiratory: Asthma Currently Using CPAP: No Currently Using BIPAP: No Cardiac: Chronic Edema/Swelling, Coronary Artery Disease, Deep Vein Thrombosis, High Cholesterol, Hypertension, Palpitations Neurological: Headaches /Migraines, Neuropathy 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: No Sexually Transmitted Disease: No HIV/AIDS: No 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 Disorders: Denies Menopausal Genitourinary: Bladder Infection, Kidney Stones, Renal Failure Gastrointestinal: Gastroesophageal Reflux, Diverticulosis, Esophagitis, Irritable Bowel Musculoskeletal: Degenerate Disk Disease, Fibromyalgia, Chronic Back Pain Endocrine: Diabetes, Insulin dep HEENT: Chronic Ear Infection Loss of Vision: Bilateral Hearing Impairment: Hard of Hearing Psychosocial: Anxiety Skin/Integumentary: Psoriasis History of Blood Disorders: No Adverse Reaction to Blood Green: No Family History Reviewed Nursing Family Hx Cancer of mouth 19 FATHER ( of esophogeal cancer.) Cardiovascular disease 19 MOTHER G8 BROTHER Completed stroke 19 FATHER G8 BROTHER Diabetes mellitus G8 BROTHER FH: lung cancer 19 MOTHER Hypertension 19 FATHER Kidney disease 19 FATHER Myocardial infarction 19 MOTHER G8 BROTHER Respiratory disorder No Family History of: AIDS CAD Over 55 Years Old, CVA, Diabetes, GI Disease, Renal Disease PSH: -LINQ DEVICE PLACED 11/09/19 FOR REPORTED PALPITATIONS X 6 MONTHS, SINCE PERCOCET WAS DC'D -MULTIPLE CARDIAC CATHS--STENT X 1 TO LAD 07/13/15. LAST CATH 01/18/19--NO INTERVENTION -LUMBAR SPINE FUSION X 3--12/2002, 04/2007, AND 05/2007 -LUMBAR DISCECTOMY 10/2000--? LAMINECTOMY? -CERVICAL SPINE FUSION 11/2006 -CHOLECYSTECTOMY 1984 -BMT'S -LITHOTRIPSY AND RIGHT URETERAL STENT -EGD'S WITH ESOPHAGEAL DILATIONS -COLONOSCOPIES, LAST ONE 03/08/19 -PORT RIGHT CHEST -LEFT SHOULDER ROTATOR CUFF REPAIR 05/01/20--DR. PALACIOS -CONTINUOUS GLUCOSE MONITOR PRESENT 06/25/20--LLQ OF ABDOMEN Review of Systems Constitutional: No chills, No fever; malaise, weakness EENTM: no symptoms reported Respiratory: No cough, No short of breath Cardiovascular: No chest pain, No palpitations Gastrointestinal: abdominal pain; No nausea, No vomiting Genitourinary: No decreased output, No dysuria, No frequency Musculoskeletal: back pain (chronic), muscle weakness Skin: no symptoms reported Psychiatric/Neurological: No Symptoms Reported Physical Exam Physical Exam Vital Signs Vital Signs - First Documented 07/01/20 18:20 Pulse 106 Resp 20 B/P (MAP) 177/101 (126) Pulse Ox 99 O2 Delivery Room Air Capillary Refill : Less Than 3 Seconds Height, Weight, BMI Height: 5'1.00" Weight: 122lbs. 1.0oz. 55.299191oc; 27.01 BMI Method:Estimated General Appearance: No Apparent Distress, Chronically ill HEENT: PERRL/EOMI, Moist Mucous Membranes; No Scleral Icterus (L), No Scleral Icterus (R) Neck: Normal Inspection, Supple; No Thyromegaly Respiratory: Lungs Clear, No Accessory Muscle Use, No Respiratory Distress Cardiovascular: Regular Rate, Rhythm, No Murmur, Normal Peripheral Pulses Gastrointestinal: Normal Bowel Sounds, Non Tender, Soft Extremity: Normal Capillary Refill, No Calf Tenderness, No Pedal Edema Neurologic/Psychiatric: Alert, Oriented x3, Normal Mood/Affect Skin: Normal Color, Warm/Dry Results Results/Procedures Labs Laboratory Tests 07/01/20 18:35 07/01/20 22:27 07/02/20 00:04 07/02/20 03:00 07/02/20 06:16 07/02/20 11:50 Patient resulted labs reviewed. Imaging [facility] [place], [place] NAME: VALENTE HARPER [facility] REC#: [id number] PT STATUS: REG ER : 1960 PHYSICIAN: LATANYA HOLLINGSWORTH MD ADMIT DATE: 07/01/20/ER Signed Date of Exam:07/01/20 CHEST 1 VIEW, AP/PA ONLY INDICATION: Sepsis COMPARISON: 06/25/2020 FINDINGS: Single view of the chest demonstrates clear lungs bilaterally. The heart is normal. There is no pneumothorax. The Port-A-Cath is stable. IMPRESSION: Negative chest. Dictated by: Dictated on workstation # [id number] Dict: 07/01/20 1856 Trans: 07/01/20 1908 [facility] [id number] Interpreted by: TIA SAWYER Electronically signed by: TIA SAWYER 07/01/20 1908 Assessment/Plan Admission Diagnosis DKA Admission Status: Inpatient Order (span 2 midnights) Reason for Inpatient Admission: see below Assessment and Plan DKA IDDMII pseudohyponatremia LANE ketosis now resolved Creatinine improved with IVF Transition from insulin gtt to home regimen Check BMP at noon as she does have ketosis prone DM to ensure improving off gtt A1c pending UTI review of cultures reveals pansensitive e coli on 06/25 Continue Rocephin for now Not sepsis left upper extremity pain lower extremity DVT Reports was diagnosed with DVT in legs at OSH on 06/14 Was to have an usg done today as an outpatient Will order for inpatient Weakness Debility Had recent fall and currently feels weak PT/OT Chronic pain Continue home pain regimen DVT ppx: Already on Eliquis for lower extremity DVT Diagnosis/Problems Diagnosis/Problems (1) Ketosis-prone diabetes mellitus Status: Chronic (2) HTN (hypertension) Status: Chronic (3) Debility Status: Acute (4) Diabetic ketoacidosis Status: Resolved Qualifiers: Diabetes mellitus type: due to underlying condition Diabetes mellitus complication detail: without coma Qualified Codes: E08.10 - Diabetes mellitus due to underlying condition with ketoacidosis without coma Resolution Date/Time: 06/16/20 @ 14:06 (5) UTI (urinary tract infection) Status: Acute Qualifiers: Urinary tract infection type: acute cystitis Hematuria presence: without hematuria Qualified Codes: N30.00 - Acute cystitis without hematuria (6) Acute kidney injury superimposed on chronic kidney disease Status: Acute Clinical Quality Measures DVT/VTE Risk/Contraindication: Risk Factor Score Per Nursin RFS Level Per Nursing on Admit: 4+=Very High GERARDO RITTER MD Jul 02, 2020 08:37
[2020-07-02] MEDS ORDERED: PANTOPRAZOLE 40 MG (PROTONIX) TAB PO SCH (09:00)
[2020-07-02] MEDS ORDERED: SODIUM PHOSPHATE INJ 30 MM in NS (IVPB) 250 ML IV ONE (09:00)
[2020-07-02] MEDS ORDERED: APIXABAN 5 MG (ELIQUIS) TABLET PO SCH (09:00)
[2020-07-02] MEDS: oxyCODONE/APAP 7.5-325 MG (PERCOCET 7.5) TABLET PO PRN (09:02)
--- NOTE | 2020-07-02 10:00 | Physical Therapy Evaluation ---
PT Evaluation-General Medical Diagnosis Admission Date Jul 01, 2020 at 20:20 Medical Diagnosis: DKA/UTI Onset Date: Jul 01, 2020 Therapy Diagnosis Therapy Diagnosis: generalized weakness/debility Height/Weight Height (Feet): 5 Height (Inches): 1.00 Weight (Pounds): 122 Weight (Ounces): 1.0 Precautions Precautions/Isolations: Fall Prevention, Standard Precautions Weight Bear Status Right Lower Extremity: Right Weight Bearing/Tolerated Left Lower Extremity: Left Weight Bearing/Tolerated Referral Physician: Nusrat Reason for Referral: Evaluation/Treatment Medical History Pertinent Medical History: Alcoholism, CAD, DM, HTN, Neuropathy, Renal Insufficiency, Smoking Additional Medical History narcotic abuse Current History ER secondary to hyperglycemia Reviewed History: Yes Social History Home: Apartment Current Living Status: Alone Entry Into Home: Level Entry Prior Prior Level of Function SCALE: Activities may be completed with or without assistive devices. 4-Gyjpvmsvzt-jebmcue completes the activity by him/herself with no assistance from a helper. 5-Set-up or Clean-up Assistance-helper sets up or cleans up; patient completes activity. [place] assists only prior to or following the activity. 4-Supervision or Touching Assistance-helper provides verbal cues and/or touching/steadying and/or contact guard assistance as patient completes activity. Assistance may be provided throughout the activity or intermittently. 3-Partial/Moderate Assistance-helper does LESS THAN HALF the effort. [place] lifts, holds or supports trunk or limbs, but provides less than half the effort. 2-Substantial/Maximal Assistance-helper does MORE THAN HALF the effort. [place] lifts or holds trunk or limbs and provides more than half the effort. 5-Mmhaswyrj-weefsr does ALL the effort. Patient does none of the effort to complete the activity. Or, the assistance of 2 or more helpers is required for the patient to complete the activity. If activity was not attempted, code reason: 7-Patient Refused. 9-Not Applicable-not attempted and the patient did not perform the activity before the current illness, exacerbation or injury. 10-Not Attempted due to Environmental Limitations-(lack of equipment, weather restraints, etc.). 88-Not Attempted due to Medical Conditions or Safety Concerns. Bed Mobility: 6 Transfers (B,C,W/C): 6 Gait: 6 Stairs: 9 Prior Devices Use: Walker, Other-see list below (cane) PT Evaluation-Current Subjective Patient appears very lethargic when PT is attempting to converse with patient, however, when patient leaves room to retrieve FWW and gait belt, patient is up drinking coffee and eating a emilia cracker. When PT returns, patient returns to listless/lethargic state. Pain Numeric Pain Scale: 0-No Pain Location: No Pain Reported Objective Patient Orientation: Listless Attachments: IV ROM/Strength ROM Lower Extremities bilateral LE WFL Strength Lower Extremities 3-/5 grossly bilateral LE Integumentary/Posture Integumentary refer to nursing notes Bowel Incontinence: No Bladder Incontinence: No Posture WFL Neuromuscular (Tone, Coordination, Reflexes) diminished coordination with gait training with FWW Sensory Vision: Wears Glasses Hearing: Impaired Sensation Right Lower Extremit: Impaired Sensation Left Lower Extremity: Impaired Transfers Roll Left to Right (QC): 6 Sit to Lying (QC): 6 Lying to Sitting/Side of Bed(Q: 6 Sit to Stand (QC): 4 Chair/Hvp-ub-Ncstp Xfer(QC): 3 Gait Does the Patient Walk?: Yes Mode of Locomotion: Walk Anticipated Mode of Locomotion: Walk Walk 10 feet (QC): 3 Walk 50 ft with 2 Turns(QC): 3 Walk 150 ft (QC): 3 Distance: 150' Gait Assistive Device: FWW Comments/Gait Description flexed knee posture and forward propulsion/shuffle gait sequence Balance Sitting Static: Normal Sitting Dynamic: Normal Standing Static: Fair Standing Dynamic: Fair Assessment/Needs 60 y.o. female, will benefit from skilled PT to address functional strength and mobility to improve current LOF to safely return to home at maximum LOF. Rehab Potential: Fair Post Rehab Potential-Barriers: compliance PT Computational Mathematician Goals Computational Mathematician Goals PT Computational Mathematician Goals Time Frame: Jul 12, 2020 Roll Left & Right (QC): 6 Sit to Lying (QC): 6 Lying-Sitting on Side/Bed(QC): 6 Sit to Stand (QC): 6 Chair/Rsv-bp-Phuee Xfer(QC): 6 Toilet Transfer (QC): 6 Does the Patient Walk: Yes Walk 10 feet (QC): 6 Walk 50ft with 2 Turns (QC): 6 Walk 150 ft (QC): 6 PT Plan Problem List Problem List: Activity Tolerance, Functional Strength, Safety, Balance, Gait Treatment/Plan Treatment Plan: Continue Plan of Care Treatment Plan: Bed Mobility, Education, Functional Activity Yue, Functional Strength, Gait, Safety, Therapeutic Exercise, Transfers Treatment Duration: Jul 12, 2020 Frequency: 6 times per week Estimated Hrs Per Day: .25 hour per day Patient and/or Family Agrees t: Yes Time/GCodes Time In: 825 Time Out: 854 Total Billed Treatment Time: 29 Total Billed Treatment 1 visit EVModC 14 min GT 15 min KELVIN CALVO PT Jul 02, 2020 10:00
[2020-07-02] MEDS: inSUlin ASPART (NovoLOG) 1 UNIT/0.01 ML (CHARGE PER UNIT) SQ SCH ×3 (11:32→21:33)
--- NOTE | 2020-07-02 11:32 | Diagnostic Imaging Report ---
PROCEDURE: US venous upper extremity left. TECHNIQUE: Multiple realtime grayscale images were obtained of left upper extremity in various projections. Additional spectral analysis and color Doppler duplex images were also obtained. INDICATION: Left upper arm pain. COMPARISON: None. FINDINGS: Duplex Doppler, anand-scale and color-flow imaging of the left upper extremity veins. The deep veins of the left upper extremity (subclavian, jugular, axillary, and brachial veins) show no evidence of intraluminal thrombosis, with normal compressibility, color flow, and augmentation. The radial and ulnar veins appear patent as well. The superficial veins (basilic and cephalic veins) are patent. IMPRESSION: No deep venous thrombosis seen in the left upper extremity veins. Dictated by: Dictated on workstation # [id number]
[2020-07-02] MEDS: morphine INJ 4 MG/ML 1 ML (VIAL/SYRINGE) IVP PRN ×3 (11:34→21:34)
[2020-07-02 12:21] LABS: BUN/CREATININE RATIO 19; CALCIUM 8.1 MG/DL (8.5-10.1); CARBON DIOXIDE 19 MMOL/L (21-32); CHLORIDE 113 MMOL/L (98-107); CREATININE SERUM 0.86 MG/DL (0.60-1.30); GFR ESTIMATED > 60; GLUCOSE 145 MG/DL (70-105); POTASSIUM 4.1 MMOL/L (3.6-5.0); SODIUM 138 MMOL/L (135-145)
--- NOTE | 2020-07-02 12:32 | NUR ---
bmp results given to dr dodge.
[2020-07-02] MEDS ORDERED: NITR100C10 PO (14:05)
--- NOTE | 2020-07-02 14:06 | NUR ---
SPOKE WITH THE PT AND WENT THRU THE EXT MED HISTORY TO COMPLETE THE MED REC ALL MEDICATIONS ARE LISTED ON THE EXT MED HISTORY AND PT WAS ABLE TO TELL ME HOW/WHEN SHE TAKES EACH- ALL INFORMATION MATCHED THE EXT MED HISTORY OTC MEDS: ASPIRIN BENADRYL SYSTANE DROPS MELATONIN
--- NOTE | 2020-07-02 15:17 | Occupational Therapy Eval ---
OT Evaluation-General/PLF Medical Diagnosis Admission Date Jul 01, 2020 at 20:20 Medical Diagnosis: DKA/UTI Onset Date: Jul 01, 2020 Therapy Diagnosis Therapy Diagnosis: Decreased ADL status Height/Weight Height (Feet): 5 Height (Inches): 1.00 Weight (Pounds): 122 Weight (Ounces): 1.0 Precautions Precautions/Isolations: Fall Prevention, Standard Precautions Referral Physician: Nusrat Referral Reason: Activity Tolerance, Self Care, Evaluation/Treatment, S trengthening/ROM Medical History Pertinent Medical History: Alcoholism, CAD, DM, HTN, Neuropathy, Renal Insufficiency, Smoking Additional Medical History narcotic abuse, coronary stent, chronic bronchitis, chronic edema, CAD, DVT, HTN, neuropathy, HTN, DDD, IDDM, psoriasis, anxiety, [place], lumbar spine fusion 01/26/07, L RTC repair, cervical spine fusion Current History Pt admits with high blood glucose levels, syncope episode 1 week ago Reviewed History: Yes Social History Home: Apartment Current Living Status: Alone Entry Into Home: Level Entry Steps Into Home: 0 ADL-Prior Level of Function SCALE: Activities may be completed with or without assistive devices. 7-Qrqfhgovsl-pmcqjxx completes the activity by him/herself with no assistance from a helper. 5-Set-up or Clean-up Assistance-helper sets up or cleans up; patient completes activity. [place] assists only prior to or following the activity. 4-Supervision or Touching Assistance-helper provides verbal cues and/or touching/steadying and/or contact guard assistance as patient completes activity. Assistance may be provided throughout the activity or intermittently. 3-Partial/Moderate Assistance-helper does LESS THAN HALF the effort. [place] lifts, holds or supports trunk or limbs, but provides less than half the effort. 2-Substantial/Maximal Assistance-helper does MORE THAN HALF the effort. [place] lifts or holds trunk or limbs and provides more than half the effort. 7-Nkikiovuy-ykqneb does ALL the effort. Patient does none of the effort to complete the activity. Or, the assistance of 2 or more helpers is required for the patient to complete the activity. If activity was not attempted, code reason: 7-Patient Refused. 9-Not Applicable-not attempted and the patient did not perform the activity before the current illness, exacerbation or injury. 10-Not Attempted due to Environmental Limitations-(lack of equipment, weather restraints, etc.). 88-Not Attempted due to Medical Conditions or Safety Concerns. ADL PLOF Comments Pt states IND with ADL tasks with use of AD/ cane Self Care: Independent Functional Cognition: Independent DME/Equipment: Grab Bars, Tub/Shower DME/Equipment Comments gb, no sc, walker and cane. Occupation: retired. Drive Self: No OT Current Status Subjective Nursing clears OT for entry. pt agrees to tx. Alert/ oriented. Pt up and eating in bed. Mental Status/Objective Patient Orientation: Person, Place, Situation Current Glasses/Contacts: Yes Hearing Aids: No Dentures/Partials: No Hand Dominance: Right Upper Extremity ROM WFL BUE Upper Extremity Coordination WFL BUE Upper Extremity Sensation WFL BUE Upper Extremity Strength WFL BUE (3/5) ADL-Treatment Eating (QC): 6 Oral Hygiene (QC): 6 On/Off Footwear (QC): 9 (Pt did not attempt socks as only wears sandals at home. ) Other Treatments Pt seen in bed. Pt eating/ agrees to OT. Pt completes hx and env information. Pt is asked to complete EOB activity, pt begins shutting eyes and requires verbal cues for wakening. Pt reaches EOB with CGA and encouragement. Pt sit to stand with CGA and stands at walker level, takes both hands from walker and reaches back/ bottom to represent bottom hygiene. Pt's knees in flexed position, does not straighten out. Pt begins shutting eyes and desires to sit. Pt states dizziness. Pt returns to bed with SBA, pt leaning to R side and requires min A to adjust environment to sit upright for continued feeding; all needs met, call light in reach. Pt then adjusts self without assist and begins eating with eyes open. Education OT Patient Education: Correct positioning, Modified ADL techniques, Purpose of tx/functional activities, Safety issues Teaching Recipient: Patient Teaching Methods: Demonstration, Discussion Response to Teaching: Verbalize Understanding, Return Demonstration, Reinforcement Needed OT Lead Web Developer Goals Lead Web Developer Goals Time Frame: Jul 09, 2020 Eating (QC): 6 Oral Hygiene (QC): 6 Toileting Hygiene (QC): 6 Shower/Bathe Self (QC): 6 Upper Body Dressing (QC): 6 Lower Body Dressing (QC): 6 On/Off Footwear (QC): 6 (shoes) Additional Goals: 1-Demonstrate ADL Tasks, 2-Verbalize Understanding, 3- ImproveStrength/Yue 1=Demonstrate adherence to instructed precautions during ADL tasks. 2=Patient will verbalize/demonstrate understanding of assistive devices/modifications for ADL. 3=Patient will improve strength/tolerance for activity to enable patient to perform ADL's. OT Education/Plan Problem List/Assessment Assessment: Decreased Activ Tolerance, Decreased Safety Aware, Decreased UE Strength, Dependent Transfers, Impaired Bed Mobility, Impaired Funct Balance, Impaired I ADL's, Impaired Self-Care Skills Discharge Recommendations Plan/Recommendations: Continue POC Therapy Discharge Recommendati: Intermittent Supervision, Home & Family Equpiment Recommendations-D/C: Bath Chair Treatment Plan/Plan of Care Treatment,Training & Education: Yes Patient would benefit from OT for education, treatment and training to promote independence in ADL's, mobility, safety and/or upper extremity function for ADL's. Plan of Care: ADL Retraining, Concurrent Therapy, Functional Mobility, Group Exercise/Act as Ind, UE Funct Exercise/Act Treatment Duration: Jul 09, 2020 Frequency: 5 times per week Estimated Hrs Per Day: .25 hour per day Agreement: Yes Rehab Potential: Fair Time/GCodes Start Time: 12:13 Stop Time: 12:27 Total Time Billed (hr/min): 14 Billed Treatment Time 1, FRANKI PHILLIPS OTR Jul 02, 2020 15:17
--- NOTE | 2020-07-02 15:45 | NUR ---
PT TRANSFERRED TO [facility] VIA W/ STAFF/PERSONAL BELONGINGS. REPORT GIVEN TO TALITA SÁNCHEZ, NO QUESTIONS/CONCERNS VOICED.
--- NOTE | 2020-07-02 15:47 | NUR ---
REPORT RECEIVED FROM PLANT SCIENCE PROFESSOR ILENE. PATIENT TO ROOM 403 VIA WHEELCHAIR. PATIENT DENIES ANY NEEDS AT THIS TIME. WILL CONTINUE TO MONITOR.
[2020-07-02] MEDS ORDERED: cefTRIAXone 1,000 MG IV (ROCEPHIN) VIAL ONE (16:26)
[2020-07-02] MEDS ORDERED: WATER (STERILE) FOR INJECTION 10 ML ONE (16:26)
[2020-07-02] MEDS: cefTRIAXone 1,000 MG/SWFI 10 ML IV PUSH IV SCH ×2 (18:01)
[2020-07-02] MEDS ORDERED: GABAPENTIN 400 MG (NEURONTIN) CAP PO SCH (21:00)
[2020-07-03 00:05] VITALS: BP 142/67
[2020-07-03] MEDS: inSUlin ASPART (NovoLOG) 1 UNIT/0.01 ML (CHARGE PER UNIT) SQ SCH ×7 (01:09→21:44)
[2020-07-03] MEDS: morphine INJ 4 MG/ML 1 ML (VIAL/SYRINGE) IVP PRN ×4 (01:41→19:55)
[2020-07-03 04:15] VITALS: BP 173/84
[2020-07-03 06:01] LABS: BASOPHILS # (AUTO) 0.1 10^3/uL (0.0-0.1); BASOPHILS % (AUTO) 1 % (0-10); EOSINOPHILS # (AUTO) 0.6 10^3/uL (0.0-0.3); EOSINOPHILS % (AUTO) 4 % (0-10); HEMATOCRIT 31 % (35-52); HEMOGLOBIN 10.3 G/DL (11.5-16.0); LYMPHOCYTES # (AUTO) 4.2 X 10^3 (1.0-4.0); LYMPHOCYTES % (AUTO) 26 % (12-44); MEAN CORPUSCULAR HEMOGLOBIN 29 PG (25-34); MEAN CORPUSCULAR HGB CONC 34 G/DL (32-36); MEAN CORPUSCULAR VOLUME 86 FL (80-99); MEAN PLATELET VOLUME 10.3 FL (7.4-10.4); MONOCYTES # (AUTO) 0.6 X 10^3 (0.0-1.0); MONOCYTES % (AUTO) 4 % (0-12); NEUTROPHILS # (AUTO) 10.7 X 10^3 (1.8-7.8); NEUTROPHILS % (AUTO) 66 % (42-75); PLATELET COUNT 269 10^3/uL (130-400); RED CELL DISTRIBUTION WIDTH 14.4 % (10.0-14.5); WHITE BLOOD COUNT 16.2 10^3/uL (4.3-11.0)
[2020-07-03 06:26] LABS: BUN/CREATININE RATIO 22; CARBON DIOXIDE 20 MMOL/L (21-32); CHLORIDE 116 MMOL/L (98-107); CREATININE SERUM 0.93 MG/DL (0.60-1.30); GFR ESTIMATED > 60; GLUCOSE 178 MG/DL (70-105); MAGNESIUM 1.7 MG/DL (1.6-2.4); POTASSIUM 3.9 MMOL/L (3.6-5.0); SODIUM 142 MMOL/L (135-145)
[2020-07-03 06:28] LABS: BAND NEUTROPHILS 1 %; LYMPHOCYTES % (MANUAL) 21 %; NEUTROPHILS % (MANUAL) 70 %
[2020-07-03 06:29] LABS: EOSINOPHILS % (MANUAL) 4 %; MONOCYTES % (MANUAL) 4 %
[2020-07-03] MEDS: PROMETHAZINE INJ 25 MG/ML (PHENERGAN) AMP IV PRN ×3 (07:00→21:42)
[2020-07-03] MEDS: diphenhydrAMINE 50 MG/ML INJ (BENADRYL) IV PRN ×3 (07:00→21:50)
[2020-07-03 07:54] VITALS: BP 171/76
[2020-07-03] MEDS: ASPIRIN 81 MG CHEW (CHILDREN'S ASA) PO SCH (08:09)
[2020-07-03] MEDS: PANTOPRAZOLE 40 MG (PROTONIX) TAB PO SCH (08:09)
[2020-07-03] MEDS: APIXABAN 5 MG (ELIQUIS) TABLET PO SCH ×2 (08:09→21:42)
[2020-07-03] MEDS: GABAPENTIN 400 MG (NEURONTIN) CAP PO SCH ×2 (08:09→21:42)
--- NOTE | 2020-07-03 09:00 | NUR ---
patient currently laying sideways in bed with head hanging off the side of bed and feet flat on floor. Patient stated "I was too tired to fight sitting up straight in bed so I just went with it" Patient asking for IV pain medication at this time. This RN stated it isn't time for IV and with her being so lethargic at this time More IV narcotics are not a good idea at this point. Patient not happy with statement but stated she takes Percocet at home and that she has been taking it here as well and it hasn't been working. This RN informed patient that was not the case that she has not had Percocet for almost 24hrs and has been receiving morphine pretty regularly while here
--- NOTE | 2020-07-03 09:08 | NUR ---
Blood sugar of [address] Silverio. instructed this RN to administer Max dose of sliding scale at this time
[2020-07-03] MEDS: oxyCODONE/APAP 7.5-325 MG (PERCOCET 7.5) TABLET PO PRN ×3 (10:11→21:43)
--- NOTE | 2020-07-03 11:32 | [facility] Note - Hospitalist ---
Subjective HPI/CC On Admission Date Seen by Provider: Jul 03, 2020 Time Seen by Provider: 11:20 Pt is a 60yoCF with a PMH of IDDMII, HTN, and chronic pain who presented to the ER due to elevated blood sugar and nausea and vomiting. She was diagnosed with a UTI on 06/25 in the ER here and was prescribed oral antibiotics. She was taking her antibiotics as prescribed until last night when she couldn't keep anything down. Her blood sugars has consistently been around 600 but she was unable to get it to the 600s yesterday so she decided to seek care. On arrival to the ER she was found to be in DKA and was admitted for an insulin gtt. This morning she states she is feeling better but is weak. Otherwise no complaints. Subjective/Events-last exam Pt reports feeling weak today. Her only request is to speed up time so that she is due for her morphine. Objective Exam Vital Signs Vital Signs Date Time Temp Pulse Resp B/P (MAP) Pulse Ox O2 Delivery O2 Flow Rate FiO2 07/03/20 08:00 Room Air 07/03/20 07:54 36.9 75 20 171/76 (107) 95 Capillary Refill : Less Than 3 Seconds General Appearance: No Apparent Distress, Chronically ill Respiratory: Lungs Clear, No Respiratory Distress Cardiovascular: Regular Rate, Rhythm, No Murmur Gastrointestinal: Normal Bowel Sounds, Non Tender, Soft Neurologic/Psychiatric: Alert, Oriented x3 Results/Procedures Lab Laboratory Tests 07/02/20 11:50 07/03/20 05:50 Patient resulted labs reviewed. Assessment/Plan Assessment and Plan Assess & Plan/Chief Complaint DKA IDDMII pseudohyponatremia LANE ketosis now resolved Creatinine improved with IVF Continue bolus insulin and SSI A1c 9.7 UTI review of cultures reveals pansensitive e coli on 06/25 Continue Rocephin Not sepsis left upper extremity pain lower extremity DVT Reports was diagnosed with DVT in legs at OSH on 06/14 usg negative for DVT Weakness Debility Had recent fall and currently feels weak PT/OT Chronic pain Continue home pain regimen DVT ppx: Already on Eliquis for lower extremity DVT Diagnosis/Problems Diagnosis/Problems (1) Ketosis-prone diabetes mellitus Status: Chronic (2) HTN (hypertension) Status: Chronic (3) Debility Status: Acute (4) Diabetic ketoacidosis Status: Resolved Qualifiers: Diabetes mellitus type: due to underlying condition Diabetes mellitus complication detail: without coma Qualified Codes: E08.10 - Diabetes mellitus due to underlying condition with ketoacidosis without coma Resolution Date/Time: 06/16/20 @ 14:06 (5) UTI (urinary tract infection) Status: Acute Qualifiers: Urinary tract infection type: acute cystitis Hematuria presence: without hematuria Qualified Codes: N30.00 - Acute cystitis without hematuria (6) Acute kidney injury superimposed on chronic kidney disease Status: Acute Clinical Quality Measures DVT/VTE Risk/Contraindication: Risk Factor Score Per Nursin RFS Level Per Nursing on Admit: 4+=Very High GERARDO RITTER MD Jul 03, 2020 11:32
[2020-07-03 12:00] VITALS: BP 161/74
--- NOTE | 2020-07-03 12:48 | Physical Therapy Daily Note ---
PT Daily Note-Current Subjective Patient in bed pre tx, agrees to PT, has no complaints of pain. Appearance Patient in bed post tx, no exercises performed, patient states she was nauseated and wants her nurse notified, nurse notified. Mental Status Patient Orientation: Person, Place, Situation Transfers SCALE: Activities may be completed with or without assistive devices. 1-Zhxphesjoi-soxmljk completes the activity by him/herself with no assistance from a helper. 5-Set-up or Clean-up Assistance-helper sets up or cleans up; patient completes activity. [place] assists only prior to or following the activity. 4-Supervision or Touching Assistance-helper provides verbal cues and/or touching/steadying and/or contact guard assistance as patient completes activity. Assistance may be provided throughout the activity or intermittently. 3-Partial/Moderate Assistance-helper does LESS THAN HALF the effort. [place] lifts, holds or supports trunk or limbs, but provides less than half the effort. 2-Substantial/Maximal Assistance-helper does MORE THAN HALF the effort. [place] lifts or holds trunk or limbs and provides more than half the effort. 6-Tjwrfqxhf-ofkwfg does ALL the effort. Patient does none of the effort to complete the activity. Or, the assistance of 2 or more helpers is required for the patient to complete the activity. If activity was not attempted, code reason: 7-Patient Refused. 9-Not Applicable-not attempted and the patient did not perform the activity before the current illness, exacerbation or injury. 10-Not Attempted due to Environmental Limitations-(lack of equipment, weather restraints, etc.). 88-Not Attempted due to Medical Conditions or Safety Concerns. Roll Left & Right (QC): 6 Sit to Lying (QC): 6 Lying to Sitting/Side of Bed(Q: 6 Sit to Stand (QC): 6 Chair/Msm-tx-Ifbny Xfer(QC): 4 Weight Bearing Right Lower Extremity: Right Weight Bearing/Tolerated Left Lower Extremity: Left Weight Bearing/Tolerated Gait Training Distance: 250' Walk 10 feet (QC): 4 Walk 50 ft with 2 Turns(QC): 4 Walk 150 ft (QC): 4 Gait Assistive Device: FWW CGA, no LOB but some unsteadiness Treatments transfers, ambulation Assessment Current Status: Fair Progress improving endurance PT Telephone Order Clerk Room Service Goals Telephone Order Clerk Room Service Goals PT Telephone Order Clerk Room Service Goals Time Frame: Jul 12, 2020 Roll Left & Right (QC): 6 Sit to Lying (QC): 6 Lying-Sitting on Side/Bed(QC): 6 Sit to Stand (QC): 6 Chair/Nvk-ya-Dlsar Xfer(QC): 6 Toilet Transfer (QC): 6 Does the Patient Walk: Yes Walk 10 feet (QC): 6 Walk 50ft with 2 Turns (QC): 6 Walk 150 ft (QC): 6 PT Plan Problem List Problem List: Activity Tolerance, Functional Strength, Safety, Balance, Gait, Transfer, Bed Mobility Treatment/Plan Treatment Plan: Continue Plan of Care Treatment Plan: Bed Mobility, Education, Functional Activity Yeu, Functional Strength, Gait, Safety, Therapeutic Exercise, Transfers Treatment Duration: Jul 12, 2020 Frequency: 6 times per week Estimated Hrs Per Day: .25 hour per day Patient and/or Family Agrees t: Yes Safety Risks/Education Patient Education: Gait Training, Transfer Techniques, Correct Positioning, Safety Issues Teaching Recipient: Patient Teaching Methods: Demonstration, Discussion Response to Teaching: Reinforcement Needed Time/GCodes Time In: 1142 Time Out: 1154 Total Billed Treatment Time: 12 Total Billed Treatment 1 visit GT 12' MILLER NINO PT Jul 03, 2020 12:48
--- NOTE | 2020-07-03 15:29 | Occupational Ther Daily Note ---
OT Current Status-Daily Note Subjective Pt in bed when OT entered room. Pt reported that she is having a lot of pain in L shoulder. Nursing notified and reported that she fell approximately a month ago, and that she has had her shoulder assessed. Nursing reports that she can continue with therapy. Pt agreeable to therapy. Mental Status/Objective Patient Orientation: Person, Place, Situation ADL-Treatment Therapy Code Descriptions/Definitions Functional [place] Measure: 0=Not Assessed/NA 4=Minimal Assistance 1=Total Assistance 5=Supervision or Setup 2=Maximal Assistance 6=Modified [place] 3=Moderate Assistance 7=Complete IndependenceSCALE: Activities may be completed with or without assistive devices. 6-Hdmbbbixbm-esrgxga completes the activity by him/herself with no assistance from a helper. 5-Set-up or Clean-up Assistance-helper sets up or cleans up; patient completes activity. [place] assists only prior to or following the activity. 4-Supervision or Touching Assistance-helper provides verbal cues and/or touching/steadying and/or contact guard assistance as patient completes activity. Assistance may be provided throughout the activity or intermittently. 3-Partial/Moderate Assistance-helper does LESS THAN HALF the effort. [place] lifts, holds or supports trunk or limbs, but provides less than half the effort. 2-Substantial/Maximal Assistance-helper does MORE THAN HALF the effort. [place] lifts or holds trunk or limbs and provides more than half the effort. 7-Bztimnwcc-weighi does ALL the effort. Patient does none of the effort to complete the activity. Or, the assistance of 2 or more helpers is required for the patient to complete the activity. If activity was not attempted, code reason: 7-Patient Refused. 9-Not Applicable-not attempted and the patient did not perform the activity before the current illness, exacerbation or injury. 10-Not Attempted due to Environmental Limitations-(lack of equipment, weather restraints, etc.). 88-Not Attempted due to Medical Conditions or Safety Concerns. Other Treatment Pt. agrees to treatment, but states, "I am not sure I can do it." Pt. is encouraged and agrees to participate at bed level. Pt tolerated PROM of the L UE for approximately 15 minutes. Shoulder flexion in L UE reported pain after 20-30 degrees. Elbow flexion and extension PROM WFL. Pt. provided with red sponge to increase B hand adolescent coordinator. OT provided education on importance of continuing to move L UE. Pt verbalized understanding. Pt in bed with call light when OT left room. All needs met. Education OT Patient Education: Exercise program, Progress toward Goal/Update tx plan, Purpose of tx/functional activities, Reviewed precautions, Rehab process Teaching Recipient: Patient Teaching Methods: Demonstration, Discussion Response to Teaching: Verbalize Understanding, Return Demonstration OT Radioactivity Technician Goals Prison Goals Time Frame: Jul 09, 2020 Eating (QC): 6 Oral Hygiene (QC): 6 Toileting Hygiene (QC): 6 Shower/Bathe Self (QC): 6 Upper Body Dressing (QC): 6 Lower Body Dressing (QC): 6 On/Off Footwear (QC): 6 (shoes) Additional Goals: 1-Demonstrate ADL Tasks, 2-Verbalize Understanding, 3- ImproveStrength/Yue 1=Demonstrate adherence to instructed precautions during ADL tasks. 2=Patient will verbalize/demonstrate understanding of assistive devices/modifications for ADL. 3=Patient will improve strength/tolerance for activity to enable patient to perform ADL's. OT Education/Plan Problem List/Assessment Assessment: Decreased Activ Tolerance, Decreased UE Strength, Impaired I ADL's, Impaired Self-Care Skills, Restricted Funct UE ROM Discharge Recommendations Plan/Recommendations: Continue POC Treatment Plan/Plan of Care Treatment,Training & Education: Yes Patient would benefit from OT for education, treatment and training to promote independence in ADL's, mobility, safety and/or upper extremity function for ADL's. Plan of Care: ADL Retraining, Concurrent Therapy, Functional Mobility, Group Exercise/Act as Ind, UE Funct Exercise/Act Treatment Duration: Jul 09, 2020 Frequency: 5 times per week Estimated Hrs Per Day: .25 hour per day Agreement: Yes Rehab Potential: Fair Time/GCodes Start Time: 15:02 Stop Time: 15:17 Total Time Billed (hr/min): 15 Billed Treatment Time 1, EX (15 minutes) DEREK PENG OT Jul 03, 2020 15:29
[2020-07-03 16:00] VITALS: BP 141/79
[2020-07-03] MEDS ORDERED: cefTRIAXone 1,000 MG IV (ROCEPHIN) VIAL ONE (18:12)
[2020-07-03] MEDS ORDERED: WATER (STERILE) FOR INJECTION 10 ML ONE (18:12)
[2020-07-03] MEDS: cefTRIAXone 1,000 MG/SWFI 10 ML IV PUSH IV SCH ×2 (18:17)
[2020-07-03 20:00] VITALS: BP 149/68
[2020-07-04] VITALS: BP 147/68
[2020-07-04] MEDS: inSUlin ASPART (NovoLOG) 1 UNIT/0.01 ML (CHARGE PER UNIT) SQ SCH ×3 (00:54→09:05)
[2020-07-04] MEDS: morphine INJ 4 MG/ML 1 ML (VIAL/SYRINGE) IVP PRN ×5 (00:54→22:10)
[2020-07-04] MEDS: diphenhydrAMINE 50 MG/ML INJ (BENADRYL) IV PRN ×4 (03:58→23:21)
[2020-07-04 04:00] VITALS: BP 104/53
[2020-07-04] MEDS: oxyCODONE/APAP 7.5-325 MG (PERCOCET 7.5) TABLET PO PRN ×4 (04:09→20:53)
[2020-07-04 05:54] LABS: HEMOGLOBIN 9.8 G/DL (11.5-16.0); MEAN PLATELET VOLUME 11.1 FL (7.4-10.4); RED CELL DISTRIBUTION WIDTH 14.4 % (10.0-14.5); WHITE BLOOD COUNT 14.5 10^3/uL (4.3-11.0)
[2020-07-04 06:15] LABS: CALCIUM 8.2 MG/DL (8.5-10.1); CREATININE SERUM 1.18 MG/DL (0.60-1.30); POTASSIUM 4.1 MMOL/L (3.6-5.0)
[2020-07-04 07:58] VITALS: BP 129/60
[2020-07-04] MEDS: APIXABAN 5 MG (ELIQUIS) TABLET PO SCH ×2 (09:05→20:52)
[2020-07-04] MEDS: ASPIRIN 81 MG CHEW (CHILDREN'S ASA) PO SCH (09:06)
[2020-07-04] MEDS: PANTOPRAZOLE 40 MG (PROTONIX) TAB PO SCH (09:06)
[2020-07-04] MEDS: GABAPENTIN 400 MG (NEURONTIN) CAP PO SCH ×2 (09:06→20:52)
--- NOTE | 2020-07-04 10:07 | Progress Note - Hospitalist ---
Subjective HPI/CC On Admission Date Seen by Provider: Jul 04, 2020 Time Seen by Provider: 10:03 Pt is a 60yoCF with a PMH of IDDMII, HTN, and chronic pain who presented to the ER due to elevated blood sugar and nausea and vomiting. She was diagnosed with a UTI on 06/25 in the ER here and was prescribed oral antibiotics. She was taking her antibiotics as prescribed until last night when she couldn't keep anything down. Her blood sugars has consistently been around 600 but she was unable to get it to the 600s yesterday so she decided to seek care. On arrival to the ER she was found to be in DKA and was admitted for an insulin gtt. This morning she states she is feeling better but is weak. Otherwise no complaints. Subjective/Events-last exam Pt reports feeling better today but still weak. BS was high this morning. Objective Exam Vital Signs Vital Signs Date Time Temp Pulse Resp B/P (MAP) Pulse Ox O2 Delivery O2 Flow Rate FiO2 07/04/20 07:58 36.8 68 18 129/60 (83) 96 Room Air Capillary Refill : Less Than 3 Seconds General Appearance: No Apparent Distress, Chronically ill Respiratory: Lungs Clear, No Respiratory Distress Cardiovascular: Regular Rate, Rhythm, No Murmur Neurologic/Psychiatric: Alert, Oriented x3 Results/Procedures Lab Laboratory Tests 07/04/20 05:20 Patient resulted labs reviewed. Assessment/Plan Assessment and Plan Assess & Plan/Chief Complaint DKA IDDMII pseudohyponatremia LANE- resolved ketosis now resolved Continue bolus insulin and SSI - increase to 20 units BID Levemir A1c 9.7 UTI review of cultures reveals pansensitive e coli on 06/25 Not sepsis DC Rocephin as has completed course left upper extremity pain lower extremity DVT Reports was diagnosed with DVT in legs at OSH on 06/14 usg negative for DVT has follow up schedule for Wednesday with her orthopedic surgeon Weakness Debility Had recent fall and currently feels weak PT/OT Chronic pain Continue home pain regimen DVT ppx: Already on Eliquis for lower extremity DVT Diagnosis/Problems Diagnosis/Problems (1) Ketosis-prone diabetes mellitus Status: Chronic (2) HTN (hypertension) Status: Chronic (3) Debility Status: Acute (4) Diabetic ketoacidosis Status: Resolved Qualifiers: Diabetes mellitus type: due to underlying condition Diabetes mellitus complication detail: without coma Qualified Codes: E08.10 - Diabetes mellitus due to underlying condition with ketoacidosis without coma Resolution Date/Time: 06/16/20 @ 14:06 (5) UTI (urinary tract infection) Status: Acute Qualifiers: Urinary tract infection type: acute cystitis Hematuria presence: without hematuria Qualified Codes: N30.00 - Acute cystitis without hematuria (6) Acute kidney injury superimposed on chronic kidney disease Status: Acute Clinical Quality Measures DVT/VTE Risk/Contraindication: Risk Factor Score Per Nursin RFS Level Per Nursing on Admit: 4+=Very High GERARDO RITTER MD Jul 04, 2020 10:07
--- NOTE | 2020-07-04 10:13 | Occupational Ther Daily Note ---
OT Current Status-Daily Note Subjective Pt sitting EOB eating cottage cheese and crackers. Pt agreeable to OT tx at this time stating her L arm is hurting, but she did not verbalize a pain rating. Mental Status/Objective Patient Orientation: Person, Place, Time, Situation ADL-Treatment Therapy Code Descriptions/Definitions Functional [place] Measure: 0=Not Assessed/NA 4=Minimal Assistance 1=Total Assistance 5=Supervision or Setup 2=Maximal Assistance 6=Modified [place] 3=Moderate Assistance 7=Complete IndependenceSCALE: Activities may be completed with or without assistive devices. 8-Flwfigiins-wijlykj completes the activity by him/herself with no assistance from a helper. 5-Set-up or Clean-up Assistance-helper sets up or cleans up; patient completes activity. [place] assists only prior to or following the activity. 4-Supervision or Touching Assistance-helper provides verbal cues and/or touching/steadying and/or contact guard assistance as patient completes activity. Assistance may be provided throughout the activity or intermittently. 3-Partial/Moderate Assistance-helper does LESS THAN HALF the effort. [place] lifts, holds or supports trunk or limbs, but provides less than half the effort. 2-Substantial/Maximal Assistance-helper does MORE THAN HALF the effort. [place] lifts or holds trunk or limbs and provides more than half the effort. 8-Vaifhoftp-hotnuy does ALL the effort. Patient does none of the effort to complete the activity. Or, the assistance of 2 or more helpers is required for the patient to complete the activity. If activity was not attempted, code reason: 7-Patient Refused. 9-Not Applicable-not attempted and the patient did not perform the activity before the current illness, exacerbation or injury. 10-Not Attempted due to Environmental Limitations-(lack of equipment, weather restraints, etc.). 88-Not Attempted due to Medical Conditions or Safety Concerns. Eating (QC): 6 (pt independent with breakfast, crackers and cottage cheese.) Other Treatment Pt seated EOB eating crackers and cottage cheese. Pt reports she has no difficulty with eating and was able to eat her breakfast/snacks without assistance. OT then educated pt on pinches with moderate resistance red therapy sponge. Pt demo'd understanding, completing x10 reps each hand, then x10 reps each hand of military aircraft designer squeezes. Post OT tx, pt seated EOB, call light in reach and all needs met. Education OT Patient Education: Correct positioning, Energy conservation, Exercise program, Modified ADL techniques, Progress toward Goal/Update tx plan, Purpose of tx/functional activities Teaching Recipient: Patient Teaching Methods: Demonstration, Discussion Response to Teaching: Verbalize Understanding, Return Demonstration OT Oxidized Finish Plater Goals [facility] Goals Time Frame: Jul 09, 2020 Eating (QC): 6 Oral Hygiene (QC): 6 Toileting Hygiene (QC): 6 Shower/Bathe Self (QC): 6 Upper Body Dressing (QC): 6 Lower Body Dressing (QC): 6 On/Off Footwear (QC): 6 (shoes) Additional Goals: 1-Demonstrate ADL Tasks, 2-Verbalize Understanding, 3- ImproveStrength/Yue 1=Demonstrate adherence to instructed precautions during ADL tasks. 2=Patient will verbalize/demonstrate understanding of assistive devices/modifications for ADL. 3=Patient will improve strength/tolerance for activity to enable patient to perform ADL's. OT Education/Plan Problem List/Assessment Assessment: Decreased Activ Tolerance, Decreased UE Strength, Impaired I ADL's, Impaired Self-Care Skills Discharge Recommendations Plan/Recommendations: Continue POC Treatment Plan/Plan of Care Patient would benefit from OT for education, treatment and training to promote independence in ADL's, mobility, safety and/or upper extremity function for ADL's. Plan of Care: ADL Retraining, Concurrent Therapy, Functional Mobility, Group Exercise/Act as Ind, UE Funct Exercise/Act Treatment Duration: Jul 09, 2020 Frequency: 5 times per week Estimated Hrs Per Day: .25 hour per day Agreement: Yes Rehab Potential: Fair Time/GCodes Start Time: 09:54 Stop Time: 10:02 Total Time Billed (hr/min): 8 Billed Treatment Time 1, EX VERNELL FERRER OT Jul 04, 2020 10:13
--- NOTE | 2020-07-04 10:30 | Physical Therapy Daily Note ---
PT Daily Note-Current Subjective Patient c/o 10/10 left UE pain with RN aware. Pain Numeric Pain Scale: 10-Worst Possible Pain Location: Left Location Body Site: Shoulder Pain Description: Chronic Mental Status Patient Orientation: Normal For Age Transfers SCALE: Activities may be completed with or without assistive devices. 1-Asnzvxekvj-bajwkpo completes the activity by him/herself with no assistance from a helper. 5-Set-up or Clean-up Assistance-helper sets up or cleans up; patient completes activity. [place] assists only prior to or following the activity. 4-Supervision or Touching Assistance-helper provides verbal cues and/or touching/steadying and/or contact guard assistance as patient completes activity. Assistance may be provided throughout the activity or intermittently. 3-Partial/Moderate Assistance-helper does LESS THAN HALF the effort. [place] lifts, holds or supports trunk or limbs, but provides less than half the effort. 2-Substantial/Maximal Assistance-helper does MORE THAN HALF the effort. [place] lifts or holds trunk or limbs and provides more than half the effort. 3-Dixxqknbj-wrzshv does ALL the effort. Patient does none of the effort to c omplete the activity. Or, the assistance of 2 or more helpers is required for the patient to complete the activity. If activity was not attempted, code reason: 7-Patient Refused. 9-Not Applicable-not attempted and the patient did not perform the activity before the current illness, exacerbation or injury. 10-Not Attempted due to Environmental Limitations-(lack of equipment, weather restraints, etc.). 88-Not Attempted due to Medical Conditions or Safety Concerns. Roll Left & Right (QC): 6 Sit to Lying (QC): 6 Lying to Sitting/Side of Bed(Q: 6 Sit to Stand (QC): 6 Weight Bearing Right Lower Extremity: Right Weight Bearing/Tolerated Left Lower Extremity: Left Weight Bearing/Tolerated Gait Training Does the Patient Walk?: Yes Distance: 375' Walk 10 feet (QC): 5 Walk 50 ft with 2 Turns(QC): 5 Walk 150 ft (QC): 5 Gait Assistive Device: Cane Single Point safe and functional with no deviation Assessment Patient returned to bed and warm blanket placed on left UE for comfort. Plan dismissal this week. PT Early Breastfeeding Care Specialist Goals Detention Goals PT Detention Goals Time Frame: Jul 12, 2020 Roll Left & Right (QC): 6 Sit to Lying (QC): 6 Lying-Sitting on Side/Bed(QC): 6 Sit to Stand (QC): 6 Chair/Vfe-og-Trkcm Xfer(QC): 6 Toilet Transfer (QC): 6 Does the Patient Walk: Yes Walk 10 feet (QC): 6 Walk 50ft with 2 Turns (QC): 6 Walk 150 ft (QC): 6 PT Plan Treatment/Plan Treatment Plan: Continue Plan of Care Treatment Plan: Bed Mobility, Education, Functional Activity Yue, Functional Strength, Gait, Safety, Therapeutic Exercise, Transfers Treatment Duration: Jul 12, 2020 Frequency: 6 times per week Estimated Hrs Per Day: .25 hour per day Patient and/or Family Agrees t: Yes Time/GCodes Time In: 1012 Time Out: 1023 Total Billed Treatment Time: 11 Total Billed Treatment 1 visit FA 11 min KELVIN CALVO PT Jul 04, 2020 10:30
[2020-07-04] MEDS: PROMETHAZINE INJ 25 MG/ML (PHENERGAN) AMP IV PRN ×3 (10:36→23:21)
[2020-07-04] MEDS: inSUlin ASPART (NovoLOG) 1 UNIT/0.01 ML (CHARGE PER UNIT) SC SCH ×3 (11:43→20:44)
[2020-07-04 12:12] VITALS: BP 146/83
[2020-07-04 15:24] VITALS: BP 140/68
[2020-07-04 19:26] VITALS: BP 144/97
[2020-07-05] VITALS: BP 135/75
--- NOTE | 2020-07-05 | NUR ---
Notified Dr. Mcintosh that pt blood sugar = 404. Received orders to give one time dose of 4 units of Levemir now and to increase scheduled BID doses of Levemir from 20 units to 22 units starting 9am. Received orders to changed Accuchecks to AC and HS and to continue monitoring the pt. Will follow orders.
[2020-07-05] MEDS: oxyCODONE/APAP 7.5-325 MG (PERCOCET 7.5) TABLET PO PRN ×3 (01:41→10:40)
[2020-07-05] MEDS: morphine INJ 4 MG/ML 1 ML (VIAL/SYRINGE) IVP PRN (02:37)
[2020-07-05 04:00] VITALS: BP 168/83
--- NOTE | 2020-07-05 06:00 | NUR ---
Notified Dr. Mcintosh that pt blood sugar = 445. Received orders to give 17 units of Novolog.
[2020-07-05] MEDS: inSUlin ASPART (NovoLOG) 1 UNIT/0.01 ML (CHARGE PER UNIT) SC SCH ×2 (06:02→11:00)
[2020-07-05 06:09] LABS: CALCIUM 8.4 MG/DL (8.5-10.1); CREATININE SERUM 1.11 MG/DL (0.60-1.30); POTASSIUM 4.6 MMOL/L (3.6-5.0)
[2020-07-05] MEDS: PROMETHAZINE INJ 25 MG/ML (PHENERGAN) AMP IV PRN (06:52)
[2020-07-05] MEDS: diphenhydrAMINE 50 MG/ML INJ (BENADRYL) IV PRN (06:52)
[2020-07-05 07:24] VITALS: BP 170/74
[2020-07-05] MEDS: ASPIRIN 81 MG CHEW (CHILDREN'S ASA) PO SCH (09:20)
[2020-07-05] MEDS: APIXABAN 5 MG (ELIQUIS) TABLET PO SCH (09:20)
[2020-07-05] MEDS: PANTOPRAZOLE 40 MG (PROTONIX) TAB PO SCH (09:20)
[2020-07-05] MEDS: GABAPENTIN 400 MG (NEURONTIN) CAP PO SCH (09:21)
--- NOTE | 2020-07-05 09:49 | NUR ---
CM/SS: Visited with pt as to plan for discharge - Plan: Pt desires to return home with [facility] - pt is not open to going to a skilled facility Summary: Pt is sitting up on the bed eating breakfast. Pt reports that she is not open to going to a care home facility. Pt is ok to return home with home care. Pt reports she has people that check on her that live at her apartment, she has difficulty in the evening. She reports going to outpatient physical therapy and that it has helped her. Pt seems to be a little lethargic, and slow, however she is asking for additional pain medications. This worker notifies the GONZALO Marquez. [facility] notified that pt will be discharged today.
--- NOTE | 2020-07-05 10:20 | Physical Therapy Daily Note ---
PT Daily Note-Current Subjective Patient is up ad chantal in room with cane. Agrees to PT. States she is going home on this date. Mental Status Patient Orientation: Normal For Age Transfers SCALE: Activities may be completed with or without assistive devices. 7-Dqkhxxpkpw-ccntwwo completes the activity by him/herself with no assistance from a helper. 5-Set-up or Clean-up Assistance-helper sets up or cleans up; patient completes activity. [place] assists only prior to or following the activity. 4-Supervision or Touching Assistance-helper provides verbal cues and/or touching/steadying and/or contact guard assistance as patient completes activity. Assistance may be provided throughout the activity or intermittently. 3-Partial/Moderate Assistance-helper does LESS THAN HALF the effort. [place] lifts, holds or supports trunk or limbs, but provides less than half the effort. 2-Substantial/Maximal Assistance-helper does MORE THAN HALF the effort. [place] lifts or holds trunk or limbs and provides more than half the effort. 3-Tocampxri-zaafib does ALL the effort. Patient does none of the effort to complete the activity. Or, the assistance of 2 or more helpers is required for the patient to complete the activity. If activity was not attempted, code reason: 7-Patient Refused. 9-Not Applicable-not attempted and the patient did not perform the activity before the current illness, exacerbation or injury. 10-Not Attempted due to Environmental Limitations-(lack of equipment, weather restraints, etc.). 88-Not Attempted due to Medical Conditions or Safety Concerns. Toilet Transfer (QC): 6 Weight Bearing Right Lower Extremity: Right Weight Bearing/Tolerated Left Lower Extremity: Left Weight Bearing/Tolerated Gait Training Does the Patient Walk?: Yes Distance: 425' Walk 10 feet (QC): 6 Walk 50 ft with 2 Turns(QC): 6 Walk 150 ft (QC): 6 Gait Assistive Device: Cane Single Point slight trunk flexed posture. Patient did utilize hand rail in hallway and cane use. Assessment PT instructed patient to utilize FWW vs cane for increase in safety with ambulation. Patient adamantly declined to use FWW. Patient is a very high fall risk and does have a FWW at home from prior stay. PT Ammonia Refrigeration Technician Goals Alf Goals PT Alf Goals Time Frame: Jul 12, 2020 Roll Left & Right (QC): 6 Sit to Lying (QC): 6 Lying-Sitting on Side/Bed(QC): 6 Sit to Stand (QC): 6 Chair/Irn-yw-Ojruo Xfer(QC): 6 Toilet Transfer (QC): 6 Does the Patient Walk: Yes Walk 10 feet (QC): 6 Walk 50ft with 2 Turns (QC): 6 Walk 150 ft (QC): 6 PT Plan Treatment/Plan Treatment Plan: Discontinue PT, goals met Treatment Plan: Bed Mobility, Education, Functional Activity Yue, Functional Strength, Gait, Safety, Therapeutic Exercise, Transfers Treatment Duration: Jul 12, 2020 Frequency: 6 times per week Estimated Hrs Per Day: .25 hour per day Patient and/or Family Agrees t: Yes Time/GCodes Time In: 956 Time Out: 1008 Total Billed Treatment Time: 12 Total Billed Treatment 1 visit FA 12 min KELVIN CALVO PT Jul 05, 2020 10:20
--- NOTE | 2020-07-05 10:58 | NUR ---
RD ASSESSMENT PMHx: DM; HTN; CAD; hypercholesterolemia; renal failure; GERD; irritable bowel; DKA; diverticulosis; esophagitis PT INTERACTION: Pt was awake and pleasant during nutrition assessment. Pt states current appetite is good. Note avg PO intake >75% x3d, per chart review. Pt states following a regular diet at home, and has no issues with chewing/swallowing food. Pt states some recent issues with nausea, and that her last BM was 810. Note pt not currently on bowel regimen per chart review. Pt states no recent wt changes. Note recent 3# wt loss x2mon, per chart review. Pt states current DM management was "previously good." Note recent HbA1c of 9.7, per chart review. ABNORMAL NUTRITION-RELATED LAB VALUES LOW: Ca 8.4 HIGH: Cl 110; BUN 28; glu 442 Est. kcal needs: 1250 kcal | 20 kcal/kg Est. Pro needs: 62 g Pro | 1.0 g Pro/kg PES STATEMENT: Given current PO intake and appetite, no nutrition diagnosis at this time (NO-1.1) INTERVENTION: Continue with current diet order of CHO 60g/m 3snack diet. Offered and provided diet education on DM management. Reinforced pt's previous education (not given by this RD) on CHO counting and portion control. Pt verbalized understanding of information provided. Will continue to follow and reassess as pt needs, intake, and status change. MONITOR/EVALUATE: PO Intake; Plan of Care; Hydration Status; Weight Status; Lab Values Sue Isaac, MS, RD, LD
[2020-07-05 11:24] VITALS: BP 137/65
--- NOTE | 2020-07-05 12:23 | D/C HH Face to Face Order ---
D/C Face to Face Orders Instructions for Patient [facility], Patient Instructions/FollowUp: Please continue to take your medications as written. Please follow up with your primary orthopedic surgery and primary care doctor in the next week. Physician to follow Patient: Dr Greenwood Discharge Diet for Home: ADA Diet Patient Data-Allergies,Ht & Wt Patient Allergies: Coded Allergies: ketorolac (Verified Allergy, Severe, ANAPHYLAXIS, PT TAKES ASA AT HOME, 03/06/19) ondansetron (Verified Allergy, Intermediate, RASH, 03/06/19) RASH/ HIVES scopolamine (Verified Allergy, Mild, Rash, 03/21/19) exenatide (Verified Allergy, Unknown, NAUSEA, 03/06/19) NON STOP VOMITING latex (Verified Allergy, Unknown, RASH, 03/06/19) metoclopramide (Verified Allergy, Unknown, RESTLESS LEGS, 03/06/19) erythromycin base (Verified Adverse Reaction, Unknown, 03/21/19) Height (Feet): 5 Height (Inches): 1.00 Weight (Pounds): 122 Weight (Ounces): 1.0 Home Health Need/Face to Face Date of Face to Face: Jul 05, 2020 Clinical Findings: Generalized weakness and fatigue, Instability I have seen Pt caws-za-edbu: Yes Discharged To: Home Diagnosis/Conditions: IDDMII, chronic pain Patient is Homebound due to: Tray fall risk due to instabilty Homebound Status Due to the above stated illness, injury or surgical procedure (medical condition or diagnosis) and associated clinical findings, the patient is homebound because of his/her inability to leave home except with aid of a supportive device and/or person AND leaving the home requires a considerable and taxing effort or is medically contraindicated. Pt req the following assistanc: Aid of another person, Walker Home Health Nursing Orders Home Health Services Order: Nursing Services, Lead Loader-Evaluate & Treat, Physical Therapy-Evaluate & Treat Home Health Infusion Therapy Line Start Date: Jul 01, 2020 Therapy Orders Therapy Orders: OT (must have SN or PT order), Physical Therapy Therapy Specific Orders: Eval assistive deivces, Teach enviro modifications/safety, Gait training, Increase strength/endurance Certify Stmt I certify that this patient is under my care and that I, a nurse practitioner or a physician; a congressional assistant working with me, had a face to face encounter that - meets the physician face to face encounter requirements with this patient as dated. GERARDO RITTER MD Jul 05, 2020 12:23
--- NOTE | 2020-07-05 12:36 | Discharge Summary ---
Diagnosis/Chief Complaint Date of Admission Jul 01, 2020 at 20:20 Date of Discharge Discharge Date: Jul 02, 2020 Admission Diagnosis DKA Primary Care Gerardo Greenwood DO Discharge Diagnosis (1) Ketosis-prone diabetes mellitus Status: Chronic (2) HTN (hypertension) Status: Chronic (3) Debility Status: Acute (4) Diabetic ketoacidosis Status: Resolved (5) UTI (urinary tract infection) Status: Acute (6) Acute kidney injury superimposed on chronic kidney disease Status: Acute Discharge Summary Procedures/Consulations Dr Lyle Brown Discharge Physical Exam Allergies: Coded Allergies: ketorolac (Verified Allergy, Severe, ANAPHYLAXIS, PT TAKES ASA AT HOME, 03/06/19) ondansetron (Verified Allergy, Intermediate, RASH, 03/06/19) RASH/ HIVES scopolamine (Verified Allergy, Mild, Rash, 03/21/19) exenatide (Verified Allergy, Unknown, NAUSEA, 03/06/19) NON STOP VOMITING latex (Verified Allergy, Unknown, RASH, 03/06/19) metoclopramide (Verified Allergy, Unknown, RESTLESS LEGS, 03/06/19) erythromycin base (Verified Adverse Reaction, Unknown, 03/21/19) Vitals & I&Os Vital Signs Date Time Temp Pulse Resp B/P (MAP) Pulse Ox O2 Delivery O2 Flow Rate FiO2 07/05/20 11:24 36.0 70 16 137/65 (89) 95 Room Air General Appearance: No Apparent Distress, Chronically ill Respiratory: Lungs Clear, No Respiratory Distress Cardiovascular: Regular Rate, Rhythm, No Murmur Gastrointestinal: Normal Bowel Sounds, Non Tender, Soft Neurologic/Psychiatric: Alert, Oriented x3 Hospital Course Pt was admitted due to DKA. She was treated with an insulin drip and recovered well. She was recently diagnosed with a UTI and was treated with IV antibiotics to complete her course in house. She was seen by PT/OT for weakness and was ambulating well. We did discuss discharge plan options and I recommended discharge to a half-way facility for continued strengthening but she declined. Instead we arranged for home health. She did request a refill of her Percocet on discharge. I informed her for her safety that I would not be prescribing her any pain medication and she needs to get that from one physician only. I also informed her that I believe this to be the reason that she is falling and ultimately she needs to titrate off chronic opiate use. Labs (last 24 hrs) Laboratory Tests 07/04/20 15:46: Glucometer 113H 07/04/20 19:07: Glucometer 160H 07/04/20 23:20: Glucometer 404*H 07/05/20 05:15: Glucometer 445*H 07/05/20 05:40: Sodium Level 136, Potassium Level 4.6, Chloride Level 110H, Carbon Dioxide Level 20L, Anion Gap 6, Blood Urea Nitrogen 28H, Creatinine 1.11, Estimat Glomerular Filtration Rate 50, BUN/Creatinine Ratio 25, Glucose Level 442*H, Calcium Level 8.4L 07/05/20 10:50: Glucometer 149H Microbiology 07/01/20 MRSA Screen - Final, Complete MRSA not isolated 07/01/20 Urine Culture - Final, Complete NO GROWTH 07/01/20 Blood Culture - Preliminary, Resulted No growth Patient resulted labs reviewed. Pending Labs Laboratory Tests 07/05/20 05:15: Glucometer 445 07/05/20 05:40: Sodium Level 136, Potassium Level 4.6, Chloride Level 110, Carbon Dioxide Level 20, Anion Gap 6, Blood Urea Nitrogen 28, Creatinine 1.11, Estimat Glomerular Filtration Rate 50, BUN/Creatinine Ratio 25, Glucose Level 442, Calcium Level 8.4 07/05/20 10:50: Glucometer 149 Discussion & Recommendations Discharge Planning: >30 minutes discharge planning Discharge Home Medications: Active Scripts Active Oxycodone-Acetaminophen 5-325 (Oxycodone HCl/Acetaminophen) 1 Each Tablet 1 Each PO Q4H PRN MDD 6 Reported Nitrofurantoin [place]-Mcr 100 mg (Nitrofurantoin Monohyd/M-Cryst) 100 Mg Capsule 1 Ea PO BID FILLED 06-26-2020 #20/ DAY SUPPLY Soothe Lubricant Eye Drops (Glycerin/Propylene Glycol) 1 Each Droperette 2 Drops OU PRN PRN Benadryl Allergy (Diphenhydramine HCl) 25 Mg Tablet 25-50 Mg PO Q6H PRN Melatonin 5 Mg Tablet 5 Mg PO HS Novolog Flexpen (Insulin Aspart) 300 Units/3 Ml Solution Units SC TIDAC USES PER SLIDING SCALE Eliquis (Apixaban) 5 Mg Tablet 5 Mg PO BID Tramadol HCl 50 Mg Tablet 50 Mg PO Q6H PRN Gabapentin 800 Mg Tablet 800 Mg PO DAILY Levemir Flextouch (Insulin Detemir) 100 Unit/1 Ml Insuln.pen 15 Unit SQ BID Omeprazole 20 Mg Capsule.dr 20 Mg PO DAILY Aspirin EC (Aspirin) 81 Mg Tablet.dr 81 Mg PO DAILY Gabapentin 800 Mg Tablet 1,600 Mg PO HS TAKES 2 (800MG) TABLETS Instructions to patient/family Please see electronic discharge instructions given to patient. Clinical Quality Measures DVT/VTE Risk/Contraindication: Risk Factor Score Per Nursin RFS Level Per Nursing on Admit: 4+=Very High Problem Qualifiers (1) Diabetic ketoacidosis: Diabetes mellitus type: due to underlying condition Diabetes mellitus complication detail: without coma Qualified Codes: E08.10 - Diabetes mellitus due to underlying condition with ketoacidosis without coma (2) UTI (urinary tract infection): Urinary tract infection type: acute cystitis Hematuria presence: without hematuria Qualified Codes: N30.00 - Acute cystitis without hematuria GERARDO RITTER MD Jul 05, 2020 12:36
[2020-07-05] MEDS ORDERED: PROMETHAZINE 25 MG (PHENERGAN) TAB PO PRN (13:00)
[2020-07-05] MEDS ORDERED: diphenhydrAMINE 25 MG TAB (BENADRYL) PO PRN (13:00)
== END 2020-07-05 13:37 | disposition home or self-care (01) | DRG 638 ==
LOC: EDUNIT# 18:15 → ER 18:16 → ICU 20:20 → 4TH 07-02 15:45
PROVIDERS: ADMIT Internal Medicine; ATTEND Internal Medicine
DX: E11.10 Type 2 diabetes mellitus with ketoacidosis without coma (principal); N17.9 Acute kidney failure, unspecified; N39.0 Urinary tract infection, site not specified; I82.409 Acute embolism and thrombosis of unspecified deep veins of unspecified lower extremity; E87.1 Hypo-osmolality and hyponatremia; B96.20 Unspecified Escherichia coli [E. coli] as the cause of diseases classified elsewhere; I12.9 Hypertensive chronic kidney disease with stage 1 through stage 4 chronic kidney disease, or unspecified chronic kidney disease; N18.9 Chronic kidney disease, unspecified; E11.42 Type 2 diabetes mellitus with diabetic polyneuropathy; F17.210 Nicotine dependence, cigarettes, uncomplicated; I25.10 Atherosclerotic heart disease of native coronary artery without angina pectoris; E78.00 Pure hypercholesterolemia, unspecified; M79.602 Pain in left arm; R53.81 Other malaise; K57.90 Diverticulosis of intestine, part unspecified, without perforation or abscess without bleeding; K58.9 Irritable bowel syndrome, unspecified; K21.0 Gastro-esophageal reflux disease with esophagitis; M79.7 Fibromyalgia; M54.9 Dorsalgia, unspecified; F41.9 Anxiety disorder, unspecified; G43.909 Migraine, unspecified, not intractable, without status migrainosus; G47.30 Sleep apnea, unspecified; J42 Unspecified chronic bronchitis; Z79.01 Long term (current) use of anticoagulants; Z91.81 History of falling; Z95.5 Presence of coronary angioplasty implant and graft; Z98.1 Arthrodesis status; Z91.19 Patient's noncompliance with other medical treatment and regimen; Z79.4 Long term (current) use of insulin
CPT/HCPCS: 36415; 71045; 80048; 80053; 81000; 82010; 82962; 83036; 83690; 83735; 84100; 85007; 85025; 85027; 85610; 85730; 87040; 87081; 87088; 96361; 96374; 96375; 99291

== ENCOUNTER 2020-07-17 19:33 | Observation (INO) | payer MEDICARE ==
[~2020-07-17] VITALS: Ht 149 cm; Wt 64.0 kg
[2020-07-17] MEDS ORDERED: NS IV 1000 ML 1,000 ML IV SCH ×2 (19:38→22:20)
[2020-07-17] MEDS ORDERED: morphine INJ 10 MG/ML 1ML (SYR OR VIAL) IVP STA ×2 (19:38→21:30)
--- NOTE | 2020-07-17 19:42 | ED General ---
General Stated Complaint: HYPERGLYCEMIA Source of Information: Patient Exam Limitations: No Limitations History of Present Illness Date Seen by Provider: Jul 17, 2020 Time Seen by Provider: 19:30 Initial Comments patient arrives by EMS from home with chief complaint for the past couple days of battling high blood sugars reading high. She been using her NovoLog and Levemir and started having nausea and vomiting today. She is not able to take her Percocet for her chronic left shoulder pain being worked up by Dr. Patel. She has a history of DKA. No history of coronary disease. She does follow Dr. Cobb because he has a history of blood clots and is on Eliquis. She has a history of hypertension. she has a port placed by Dr. Ashley because she has poor IV access peripherally. She has a liter of saline initiated by EMS reported a blood sugar reading high on the glucometer. primary care by Dr. Calabrese. Allergies and Home Medications Allergies Coded Allergies: ketorolac (Verified Allergy, Severe, ANAPHYLAXIS, PT TAKES ASA AT HOME, 03/06/19) ondansetron (Verified Allergy, Intermediate, RASH, 03/06/19) RASH/ HIVES scopolamine (Verified Allergy, Mild, Rash, 03/21/19) exenatide (Verified Allergy, Unknown, NAUSEA, 03/06/19) NON STOP VOMITING latex (Verified Allergy, Unknown, RASH, 03/06/19) metoclopramide (Verified Allergy, Unknown, RESTLESS LEGS, 03/06/19) erythromycin base (Verified Adverse Reaction, Unknown, 03/21/19) Home Medications Apixaban 5 Mg Tablet, 5 MG PO BID, (Reported) Aspirin 81 Mg Tablet.dr, 81 MG PO DAILY, (Reported) Diphenhydramine HCl 25 Mg Tablet, 25-50 MG PO Q6H PRN for ALLERGY SYMPTOMS, (Reported) Gabapentin 800 Mg Tablet, 1,600 MG PO HS, (Reported) TAKES 2 (800MG) TABLETS Gabapentin 800 Mg Tablet, 800 MG PO DAILY, (Reported) Glycerin/Propylene Glycol 1 Each Droperette, 2 DROPS OU PRN PRN for DRY EYES, (Reported) Insulin Aspart 300 Units/3 Ml Solution, UNITS SC TIDAC, (Reported) USES PER SLIDING SCALE Insulin Detemir 100 Unit/1 Ml Insuln.pen, 15 UNIT SQ BID, (Reported) Melatonin 5 Mg Tablet, 5 MG PO HS, (Reported) Omeprazole 20 Mg Capsule.dr, 20 MG PO DAILY, (Reported) Oxycodone HCl/Acetaminophen 1 Each Tablet, 1 EACH PO Q4H PRN for PAIN-SEVERE Prescribed by: GERARDO RITTER on 06/18/20 1047 Tramadol HCl 50 Mg Tablet, 50 MG PO Q6H PRN for PAIN-MODERATE (5-7), (Reported) Patient Home Medication List Home Medication List Reviewed: Yes Review of Systems Review of Systems Constitutional: No chills, No fever; malaise, weakness EENTM: No ear discharge, No ear pain, No eye pain Respiratory: No cough, No short of breath Cardiovascular: No edema, No Hx of Intervention, No palpitations Gastrointestinal: No abdominal pain, No constipation, No diarrhea; nausea, vomiting Genitourinary: No discharge, No dysuria Musculoskeletal: see HPI; No back pain; joint pain All Other Systems Reviewed Negative Unless Noted: Yes Past Iwuhabz-Fcgcft-Ozcujv Hx Patient Social History Alcohol Use: Occasionally Uses Alcohol Beverage of Choice: Wine Recreational Drug Use: Yes Drug of Choice: NARCOTIC ABUSE Smoking Status: Former Smoker Type Used: Cigarettes Former Smoker, Quit: Nov 10, 2017 2nd Hand Smoke Exposure: No Recent Hopitalizations: No Immunizations Up To Date Tetanus Booster (TDap): Unknown PED Vaccines UTD: No Date of Pneumonia Vaccine: Nov 06, 2019 Date of Influenza Vaccine: Nov 22, 2019 Seasonal Allergies Seasonal Allergies: Yes Past Medical History Surgeries: Yes (LITHOTRIPSY;LUMBAR SURGERY X 4;BMT'S;EGD'S WITH ESOPHAGEAL DILATIONS;) Cardiac, Coronary Stent, Ear Surgery, Gallbladder, Orthopedic, Renal Respiratory: Yes Chronic Bronchitis, Sleep Apnea Currently Using CPAP: No Currently Using BIPAP: No Cardiac: Yes (DVT'S IN ARMS; CARDIAC STENT X 1; CAROTID DISEASE;LINQ DEVICE) Chronic Edema/Swelling, Coronary Artery Disease, Deep Vein Thrombosis, High Cholesterol, Hypertension, Palpitations Neurological: Yes (NEUROPATHY IN HANDS AND FEET) Headaches /Migraines, Neuropathy 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 Disorders: No 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 Sexually Transmitted Disease: No HIV/AIDS: No Genitourinary: Yes Bladder Infection, Kidney Stones, Renal Failure Gastrointestinal: Yes (GASTRITIS;ESOPH STRICTURE/DILATION;GASTROPARESIS-CHRONIC N/V/ABD PAIN;DAVID) Gastroesophageal Reflux, Diverticulosis, Esophagitis, Irritable Bowel Musculoskeletal: Yes (CHRONIC GENERALIZED PAIN;CHRONIC BILAT SHOULDER PAIN;CHRONIC NECK PAIN ) Degenerate Disk Disease, Fibromyalgia, Chronic Back Pain Endocrine: Yes (NON-COMPLAINT;MULTIPLE EPISODES OF DKA-EASILY CONTROLLED ON INSULIN IN HOSP) Diabetes, Insulin dep HEENT: Yes (GLASSES; S/P BMT'S) Chronic Ear Infection Loss of Vision: Bilateral Hearing Impairment: Hard of Hearing Cancer: No Psychosocial: Yes Anxiety Integumentary: Yes Psoriasis Blood Disorders: No Adverse Reaction/Blood Tranf: No Family Medical History Cancer of mouth 19 FATHER ( of esophogeal cancer.) Cardiovascular disease 19 MOTHER G8 BROTHER Completed stroke 19 FATHER G8 BROTHER Diabetes mellitus G8 BROTHER FH: lung cancer 19 MOTHER Hypertension 19 FATHER Kidney disease 19 FATHER Myocardial infarction 19 MOTHER G8 BROTHER Respiratory disorder No Family History of: AIDS CAD Over 55 Years Old, CVA, Diabetes, GI Disease, Renal Disease PSH: -LINQ DEVICE PLACED 11/09/19 FOR REPORTED PALPITATIONS X 6 MONTHS, SINCE PERCOCET WAS DC'D -MULTIPLE CARDIAC CATHS--STENT X 1 TO LAD 07/13/15. LAST CATH 01/18/19--NO INTERVENTION -LUMBAR SPINE FUSION X 3--12/2002, 04/2007, AND 05/2007 -LUMBAR DISCECTOMY 10/2000--? LAMINECTOMY? -CERVICAL SPINE FUSION 11/2006 -CHOLECYSTECTOMY 1984 -BMT'S -LITHOTRIPSY AND RIGHT URETERAL STENT -EGD'S WITH ESOPHAGEAL DILATIONS -COLONOSCOPIES, LAST ONE 03/08/19 -PORT RIGHT CHEST -LEFT SHOULDER ROTATOR CUFF REPAIR 05/01/20--DR. PATEL -CONTINUOUS GLUCOSE MONITOR PRESENT 06/25/20--LLQ OF ABDOMEN Physical Exam Vital Signs Vital Signs - First Documented 07/17/20 19:52 Temp 36.6 Pulse 88 Resp 14 B/P (MAP) 196/86 (122) Pulse Ox 98 O2 Delivery Room Air Capillary Refill : Height, Weight, BMI Height: 5'1.00" Weight: 122lbs. 1.0oz. 55.174915gp; 27.01 BMI Method:Estimated General Appearance: WD/WN, Chronically ill, Mild Distress Eyes: Bilateral Eye Normal Inspection, Bilateral Eye PERRL, Bilateral Eye EOMI HEENT: PERRL/EOMI, Pharynx Normal, Moist Mucous Membranes Neck: Full Range of Motion, Normal Inspection, Non Tender Respiratory: Lungs Clear, Normal Breath Sounds, No Accessory Muscle Use, No Respiratory Distress Cardiovascular: Regular Rate, Rhythm, No Edema, Normal Peripheral Pulses, Tachycardia Gastrointestinal: Normal Bowel Sounds, Non Tender, Soft Extremity: Normal Capillary Refill, Normal Inspection, Normal Range of Motion, No Pedal Edema Neurologic/Psychiatric: Alert, Oriented x3, No Motor/Sensory Deficits, Normal Mood/Affect Skin: Normal Color, Warm/Dry Procedures/Interventions Date of ETT Placement: Dec 30, 2019 Time of ETT Placement: 075 Progress/Results/Core Measures Suspected Sepsis SIRS Temperature: Pulse: Respiratory Rate: Laboratory Tests 07/17/20 19:41: White Blood Count 9.5 07/17/20 23:00: White Blood Count 11.2H Blood Pressure / Mean: Laboratory Tests 07/17/20 19:41: Creatinine 1.17, Platelet Count 262, Total Bilirubin 0.4 07/17/20 23:00: Creatinine 0.95, Platelet Count 277 Results/Orders Lab Results Laboratory Tests Test 07/17/20 19:39 07/17/20 19:41 07/17/20 19:48 07/17/20 22:17 Range/Units Glucometer > 600 *H 355 H 70-110 MG/DL White Blood Count 9.5 4.3-11.0 10^3/uL Red Blood Count 3.93 L 4.35-5.85 10^6/uL Hemoglobin 11.7 11.5-16.0 G/DL Hematocrit 34 L 35-52 % Mean Corpuscular Volume 86 80-99 FL Mean Corpuscular Hemoglobin 30 25-34 PG Mean Corpuscular Hemoglobin Concent 35 32-36 G/DL Red Cell Distribution Width 14.0 10.0-14.5 % Platelet Count 262 130-400 10^3/uL Mean Platelet Volume 10.6 H 7.4-10.4 FL Neutrophils (%) (Auto) 71 42-75 % Lymphocytes (%) (Auto) 25 12-44 % Monocytes (%) (Auto) 3 0-12 % Eosinophils (%) (Auto) 1 0-10 % Basophils (%) (Auto) 1 0-10 % Neutrophils # (Auto) 6.8 1.8-7.8 X 10^3 Lymphocytes # (Auto) 2.4 1.0-4.0 X 10^3 Monocytes # (Auto) 0.3 0.0-1.0 X 10^3 Eosinophils # (Auto) 0.1 0.0-0.3 10^3/uL Basophils # (Auto) 0.1 0.0-0.1 10^3/uL Sodium Level 131 L 135-145 MMOL/L Potassium Level 4.7 3.6-5.0 MMOL/L Chloride Level 101 98-107 MMOL/L Carbon Dioxide Level 18 L 21-32 MMOL/L Anion Gap 12 5-14 MMOL/L Blood Urea Nitrogen 16 7-18 MG/DL Creatinine 1.17 0.60-1.30 MG/DL Estimat Glomerular Filtration Rate 47 BUN/Creatinine Ratio 14 Glucose Level 764 *H 70-105 MG/DL Calcium Level 8.5 8.5-10.1 MG/DL Corrected Calcium 8.9 8.5-10.1 MG/DL Total Bilirubin 0.4 0.1-1.0 MG/DL Aspartate Amino Transf (AST/SGOT) 9 5-34 U/L Alanine Aminotransferase (ALT/SGPT) 8 0-55 U/L Alkaline Phosphatase 95 40-136 U/L Total Protein 6.5 6.4-8.2 GM/DL Albumin 3.5 3.2-4.5 GM/DL Urine Color YELLOW Urine Clarity CLEAR Urine pH 6.5 5-9 Urine Specific [place] 1.010 L 1.016-1.022 Urine Protein 2+ H NEGATIVE Urine Glucose (UA) 3+ H NEGATIVE Urine Ketones TRACE H NEGATIVE Urine Nitrite NEGATIVE NEGATIVE Urine Bilirubin NEGATIVE NEGATIVE Urine Urobilinogen 0.2 < = 1.0 MG/DL Urine Leukocyte Esterase NEGATIVE NEGATIVE Urine RBC (Auto) TRACE-I NEGATIVE Urine RBC RARE /HPF Urine WBC RARE /HPF Urine Squamous Epithelial Cells NONE /HPF Urine Crystals NONE /LPF Urine Bacteria NEGATIVE /HPF Urine Casts NONE /LPF Urine Mucus SMALL H /LPF Urine Culture Indicated NO Test 07/17/20 23:00 07/17/20 23:03 07/18/20 00:12 Range/Units White Blood Count 11.2 H 4.3-11.0 10^3/uL Red Blood Count 3.70 L 4.35-5.85 10^6/uL Hemoglobin 10.9 L 11.5-16.0 G/DL Hematocrit 32 L 35-52 % Mean Corpuscular Volume 86 80-99 FL Mean Corpuscular Hemoglobin 29 25-34 PG Mean Corpuscular Hemoglobin Concent 34 32-36 G/DL Red Cell Distribution Width 14.2 10.0-14.5 % Platelet Count 277 130-400 10^3/uL Mean Platelet Volume 10.1 7.4-10.4 FL Sodium Level 138 135-145 MMOL/L Potassium Level 4.0 3.6-5.0 MMOL/L Chloride Level 108 H 98-107 MMOL/L Carbon Dioxide Level 18 L 21-32 MMOL/L Anion Gap 12 5-14 MMOL/L Blood Urea Nitrogen 13 7-18 MG/DL Creatinine 0.95 0.60-1.30 MG/DL Estimat Glomerular Filtration Rate 60 BUN/Creatinine Ratio 14 Glucose Level 279 H 70-105 MG/DL Calcium Level 8.3 L 8.5-10.1 MG/DL Glucometer 289 H 318 H 70-110 MG/DL My Orders Orders - LATANYA HOLLINGSWORTH Cbc With Automated Diff (07/17/20 19:38) Comprehensive Metabolic Panel (07/17/20 19:38) Ua Culture If Indicated (07/17/20 19:38) Ed Iv/Invasive Line Start (07/17/20 19:38) Ns Iv 1000 Ml (Sodium Chloride 0.9%) (07/17/20 19:38) Promethazine Injection (Phenergan Injec (07/17/20 19:45) Diphenhydramine Injection (Benadryl Inje (07/17/20 19:45) Morphine Injection (Morphine Injection (07/17/20 19:38) Insulin (Regular) Human (Novolin R (Per (07/17/20 21:15) Morphine Injection (Morphine Injection (07/17/20 21:30) Medications Given in ED Current Medications Medications Dose Ordered Sig/Jackie Route Start Time Stop Time Status Last Admin Dose Admin Diphenhydramine HCl 25 mg ONCE ONCE IVP 07/17/20 19:45 07/17/20 19:46 DC 07/17/20 19:59 25 MG Insulin Human Regular 6 unit ONCE ONCE IV 07/17/20 21:15 07/17/20 21:16 DC 07/17/20 21:25 6 UNIT Promethazine HCl 25 mg ONCE ONCE IVP 07/17/20 19:45 07/17/20 19:46 DC 07/17/20 20:02 25 MG Vital Signs/I&O 07/17/20 07/17/20 07/17/20 07/17/20 19:52 22:05 22:09 22:15 Temp 36.6 37.0 Pulse 88 77 77 Resp 14 18 15 B/P (MAP) 196/86 (122) 156/98 (117) 158/89 (112) Pulse Ox 98 98 97 97 O2 Delivery Room Air Room Air Room Air Room Air 07/17/20 07/17/20 07/17/20 07/17/20 22:21 22:21 22:30 22:45 Pulse 75 80 76 70 Resp 16 14 11 B/P (MAP) 142/71 161/78 (105) 153/68 (96) Pulse Ox 98 99 98 O2 Delivery Room Air Room Air Room Air 07/17/20 07/17/20 07/18/20 23:00 23:30 00:17 Temp 36.6 Pulse 68 67 Resp 18 20 B/P (MAP) 156/77 (103) 155/70 (98) Pulse Ox 98 96 O2 Delivery Room Air Room Air 07/18/20 00:00 Intake Total 1000 ml Balance 1000 ml Capillary Refill : Progress Note : Time: 00:35 Progress Note significant hyperglycemia causing some mild dehydration. IV fluids were given. Insignificant acidemia and no anion gap. Only trace ketones in the urine. We gave her 6 units of IV regular insulin and plan to put her in the ICU on an insulin drip. Departure Communication (Admissions) Time/Spoke to Admitting Phy: 21:30 discussed the case with Dr. hTurman and he agrees to admit the patient to the ICU on an insulin drip per hyperglycemia. Impression Primary Impression: Hyperglycemia Additional Impression: Type 2 diabetes mellitus Qualified Codes: E11.69 - Type 2 diabetes mellitus with other specified complication; Z79.4 - [facility] (current) use of insulin Disposition: ADMITTED INPATIENT Condition: Stable Admissions Decision to Admit Reason: Admit from ER (General) Decision to Admit/Date: Jul 17, 2020 Time/Decision to Admit Time: 20:35 Departure-Patient Inst. Referrals: CINDY CALABRESE DO (PCP/Family) Primary Care Physician LATANYA HOLLINGSWORTH Jul 17, 2020 19:42
[2020-07-17] MEDS ORDERED: PROMETHAZINE INJ 25 MG/ML (PHENERGAN) AMP IVP ONE (19:45)
[2020-07-17] MEDS ORDERED: diphenhydrAMINE 50 MG/ML INJ (BENADRYL) IVP ONE (19:45)
--- NOTE | 2020-07-17 20:00 | NUR ---
Pt here by EMS with n/v/d and high FSBS since yesterday; also reports left arm pain x a couple of months. States that she has been urinating a lot as well. Pt states her glucometer has been reading "hi" at home. Pt is A&Ox4 and a good historian. Pt does not appear sob and denies other complaints. VSS. Implanted port accessed by EMS sloop captain. Pt to monitor; labs drawn; will continue to monitor.
[2020-07-17 20:19] LABS: BASOPHILS # (AUTO) 0.1 10^3/uL (0.0-0.1); BASOPHILS % (AUTO) 1 % (0-10); EOSINOPHILS # (AUTO) 0.1 10^3/uL (0.0-0.3); EOSINOPHILS % (AUTO) 1 % (0-10); HEMATOCRIT 34 % (35-52); HEMOGLOBIN 11.7 G/DL (11.5-16.0); LYMPHOCYTES # (AUTO) 2.4 X 10^3 (1.0-4.0); LYMPHOCYTES % (AUTO) 25 % (12-44); MEAN CORPUSCULAR HEMOGLOBIN 30 PG (25-34); MEAN CORPUSCULAR HGB CONC 35 G/DL (32-36); MEAN CORPUSCULAR VOLUME 86 FL (80-99); MEAN PLATELET VOLUME 10.6 FL (7.4-10.4); MONOCYTES # (AUTO) 0.3 X 10^3 (0.0-1.0); MONOCYTES % (AUTO) 3 % (0-12); NEUTROPHILS # (AUTO) 6.8 X 10^3 (1.8-7.8); NEUTROPHILS % (AUTO) 71 % (42-75); PLATELET COUNT 262 10^3/uL (130-400); WHITE BLOOD COUNT 9.5 10^3/uL (4.3-11.0)
[2020-07-17 20:19] LABS: BILIRUBIN,URINE NEGATIVE (NEGATIVE); CLARITY,URINE CLEAR; COLOR,URINE YELLOW; GLUCOSE, URINE (UA) 3+ (NEGATIVE); KETONES,URINE TRACE (NEGATIVE); LEUKOCYTE ESTERASE ,URINE NEGATIVE (NEGATIVE); NITRITE,URINE NEGATIVE (NEGATIVE); PH,URINE 6.5 (5-9); PROTEIN,URINE 2+ (NEGATIVE)
[2020-07-17 20:25] LABS: BACTERIA,URINE NEGATIVE /HPF; RBC,URINE RARE /HPF; WBC,URINE RARE /HPF
[2020-07-17 20:30] LABS: ALBUMIN 3.5 GM/DL (3.2-4.5)
[2020-07-17 20:31] LABS: CALCIUM 8.5 MG/DL (8.5-10.1)
[2020-07-17 20:33] LABS: TOTAL PROTEIN 6.5 GM/DL (6.4-8.2)
[2020-07-17 20:34] LABS: BILIRUBIN,TOTAL 0.4 MG/DL (0.1-1.0)
[2020-07-17 20:36] LABS: CREATININE SERUM 1.17 MG/DL (0.60-1.30)
[2020-07-17 20:46] LABS: POTASSIUM 4.7 MMOL/L (3.6-5.0)
--- NOTE | 2020-07-17 21:00 | NUR ---
Pt reports she feels better; BSC available due to patient frequent need to urinate. Pt on bedside monitor. Will continue to monitor. Call light within reach.
[2020-07-17] MEDS ORDERED: inSUlin (REGULAR) HUMAN 1 UNIT/0.01 ML (CHARGE PER UNIT) IV ONE (21:15)
--- NOTE | 2020-07-17 21:33 | NUR ---
Pt reports increasing pain; Dr. Gooden notified and order received.
[2020-07-17 22:09] VITALS: BP 156/98
[2020-07-17] MEDS ORDERED: 1/2 NS IV SOLUTION 1,000 ML IV ONE (22:10)
[2020-07-17 22:15] VITALS: BP 158/89
[2020-07-17] MEDS: 1/2 NS IV SOLUTION 1,000 ML IV SCH (22:15)
[2020-07-17 22:30] VITALS: BP 161/78
[2020-07-17] MEDS ORDERED: D5 1/2 NS 1000 ML IV SOLUTION 1,000 ML IV SCH (22:30)
[2020-07-17] MEDS ORDERED: morphine INJ 4 MG/ML 1 ML (VIAL/SYRINGE) IV PRN (22:30)
[2020-07-17] MEDS ORDERED: POTASSIUM CL 10MEQ/50ML IVPB 50 ML IV SCH ×2 (22:30)
[2020-07-17 22:45] VITALS: BP 153/68
[2020-07-17 23:00] VITALS: BP 156/77
[2020-07-17 23:11] LABS: HEMOGLOBIN 10.9 G/DL (11.5-16.0); MEAN PLATELET VOLUME 10.1 FL (7.4-10.4); RED CELL DISTRIBUTION WIDTH 14.2 % (10.0-14.5); WHITE BLOOD COUNT 11.2 10^3/uL (4.3-11.0)
[2020-07-17 23:21] LABS: CALCIUM 8.3 MG/DL (8.5-10.1)
[2020-07-17 23:25] LABS: CREATININE SERUM 0.95 MG/DL (0.60-1.30)
[2020-07-17 23:30] VITALS: BP 155/70
--- NOTE | 2020-07-17 23:38 | NUR ---
Pt voices concern of being a brittle diabetic, blood sugar trending down without insulin drip being initiated. TeleICU contacted, orders received.
[2020-07-17] MEDS ORDERED: inSUlin ASPART (NovoLOG) 1 UNIT/0.01 ML (CHARGE PER UNIT) SC SCH (23:45)
[2020-07-18] VITALS (13 sets, daily range): BP systolic 96–173; BP diastolic 53–94
[2020-07-18] MEDS: morphine INJ 4 MG/ML 1 ML (VIAL/SYRINGE) IV PRN ×6 (00:17→23:33)
[2020-07-18] MEDS: PROMETHAZINE INJ 25 MG/ML (PHENERGAN) AMP IVP PRN ×4 (01:29→19:56)
[2020-07-18] MEDS: diphenhydrAMINE 50 MG/ML INJ (BENADRYL) IVP PRN ×4 (01:29→19:56)
[2020-07-18] MEDS: 1/2 NS IV SOLUTION 1,000 ML IV SCH (02:15)
[2020-07-18 03:53] LABS: BASOPHILS # (AUTO) 0.1 10^3/uL (0.0-0.1); BASOPHILS % (AUTO) 1 % (0-10); EOSINOPHILS # (AUTO) 0.4 10^3/uL (0.0-0.3); EOSINOPHILS % (AUTO) 4 % (0-10); HEMATOCRIT 32 % (35-52); HEMOGLOBIN 10.9 G/DL (11.5-16.0); LYMPHOCYTES # (AUTO) 5.1 X 10^3 (1.0-4.0); LYMPHOCYTES % (AUTO) 46 % (12-44); MEAN CORPUSCULAR HEMOGLOBIN 29 PG (25-34); MEAN CORPUSCULAR HGB CONC 34 G/DL (32-36); MEAN CORPUSCULAR VOLUME 87 FL (80-99); MEAN PLATELET VOLUME 9.7 FL (7.4-10.4); MONOCYTES # (AUTO) 0.5 X 10^3 (0.0-1.0); MONOCYTES % (AUTO) 4 % (0-12); NEUTROPHILS # (AUTO) 5.1 X 10^3 (1.8-7.8); NEUTROPHILS % (AUTO) 46 % (42-75); PLATELET COUNT 254 10^3/uL (130-400); RED CELL DISTRIBUTION WIDTH 14.2 % (10.0-14.5); WHITE BLOOD COUNT 11.2 10^3/uL (4.3-11.0)
[2020-07-18 04:01] LABS: ALBUMIN 3.3 GM/DL (3.2-4.5); CHLORIDE 110 MMOL/L (98-107); POTASSIUM 3.7 MMOL/L (3.6-5.0); SODIUM 138 MMOL/L (135-145)
[2020-07-18 04:02] LABS: CALCIUM 8.4 MG/DL (8.5-10.1)
[2020-07-18 04:03] LABS: GLUCOSE 115 MG/DL (70-105)
[2020-07-18 04:04] LABS: TOTAL PROTEIN 5.9 GM/DL (6.4-8.2)
[2020-07-18 04:05] LABS: BILIRUBIN,TOTAL 0.3 MG/DL (0.1-1.0); CARBON DIOXIDE 21 MMOL/L (21-32)
[2020-07-18 04:07] LABS: ALKALINE PHOSPHATASE 86 U/L (40-136); CREATININE SERUM 0.77 MG/DL (0.60-1.30); GFR ESTIMATED > 60; PHOSPHORUS 2.3 MG/DL (2.3-4.7)
[2020-07-18 04:08] LABS: BUN/CREATININE RATIO 16
[2020-07-18 04:10] LABS: ALANINE AMINOTRANSFERASE 8 U/L (0-55); MAGNESIUM 1.5 MG/DL (1.6-2.4)
[2020-07-18] MEDS: MAGNESIUM 1 GM/100 ML IVPB 100 ML IV SCH ×2 (04:33→05:45)
--- NOTE | 2020-07-18 04:58 | Pulmonary Consultation ---
History of Present Illness History of Present Illness Date Seen by Provider: Jul 18, 2020 Time Seen by Provider: 04:53 Date of Admission History of Present Illness 60yo with hx of IDDM and hx of DKA presented to ED secondary to persistent hyperglycemia over the last 2 days. She been using her NovoLog and Levemir and started having nausea and vomiting today. Allergies and Home Medications Allergies Coded Allergies: ketorolac (Verified Allergy, Severe, ANAPHYLAXIS, PT TAKES ASA AT HOME, 03/06/19) ondansetron (Verified Allergy, Intermediate, RASH, 03/06/19) RASH/ HIVES scopolamine (Verified Allergy, Mild, Rash, 03/21/19) exenatide (Verified Allergy, Unknown, NAUSEA, 03/06/19) NON STOP VOMITING latex (Verified Allergy, Unknown, RASH, 03/06/19) metoclopramide (Verified Allergy, Unknown, RESTLESS LEGS, 03/06/19) erythromycin base (Verified Adverse Reaction, Unknown, 03/21/19) Home Medications Apixaban 5 Mg Tablet, 5 MG PO BID, (Reported) Aspirin 81 Mg Tablet.dr, 81 MG PO DAILY, (Reported) Diphenhydramine HCl 25 Mg Tablet, 25-50 MG PO Q6H PRN for ALLERGY SYMPTOMS, (Reported) Gabapentin 800 Mg Tablet, 1,600 MG PO HS, (Reported) TAKES 2 (800MG) TABLETS Gabapentin 800 Mg Tablet, 800 MG PO DAILY, (Reported) Glycerin/Propylene Glycol 1 Each Droperette, 2 DROPS OU PRN PRN for DRY EYES, (Reported) Insulin Aspart 300 Units/3 Ml Solution, UNITS SC TIDAC, (Reported) USES PER SLIDING SCALE Insulin Detemir 100 Unit/1 Ml Insuln.pen, 15 UNIT SQ BID, (Reported) Melatonin 5 Mg Tablet, 5 MG PO HS, (Reported) Omeprazole 20 Mg Capsule.dr, 20 MG PO DAILY, (Reported) Oxycodone HCl/Acetaminophen 1 Each Tablet, 1 EACH PO Q4H PRN for PAIN-SEVERE Prescribed by: GERARDO RITTER on 06/18/20 1047 Tramadol HCl 50 Mg Tablet, 50 MG PO Q6H PRN for PAIN-MODERATE (5-7), (Reported) Past Gearxrv-Cnfmvy-Jvbqjd Hx Patient Social History Alcohol Use: Occasionally Uses Number of Drinks Today: Alcohol Beverage of Choice: Wine Recreational Drug Use: Yes Drug of Choice: NARCOTIC ABUSE Smoking Status: Former Smoker Type Used: Cigarettes Former Smoker, Quit: Nov 10, 2017 2nd Hand Smoke Exposure: No Recent Foreign Travel: No Contact w/Someone Who Travel: No Recent Infectious Disease Expo: No Recent Hopitalizations: No Immunizations Up To Date Tetanus Booster (TDap): Unknown PED Vaccines UTD: No Date of Pneumonia Vaccine: Nov 06, 2019 Date of Influenza Vaccine: Nov 22, 2019 Seasonal Allergies Seasonal Allergies: Yes Past Medical History Surgeries: Yes (LITHOTRIPSY;LUMBAR SURGERY X 4;BMT'S;EGD'S WITH ESOPHAGEAL DILATIONS;) Cardiac, Coronary Stent, Ear Surgery, Gallbladder, Orthopedic, Renal Respiratory: Yes Chronic Bronchitis, Sleep Apnea Currently Using CPAP: No Currently Using BIPAP: No Cardiac: Yes (DVT'S IN ARMS; CARDIAC STENT X 1; CAROTID DISEASE;LINQ DEVICE) Chronic Edema/Swelling, Coronary Artery Disease, Deep Vein Thrombosis, High Cholesterol, Hypertension, Palpitations Neurological: Yes (NEUROPATHY IN HANDS AND FEET) Headaches /Migraines, Neuropathy 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 Disorders: No 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 Sexually Transmitted Disease: No HIV/AIDS: No Genitourinary: Yes Bladder Infection, Kidney Stones, Renal Failure Gastrointestinal: Yes (GASTRITIS;ESOPH STRICTURE/DILATION;GASTROPARESIS-CHRONIC N/V/ABD PAIN;DAVID) Gastroesophageal Reflux, Diverticulosis, Esophagitis, Irritable Bowel Musculoskeletal: Yes (CHRONIC GENERALIZED PAIN;CHRONIC BILAT SHOULDER PAIN;CHRONIC NECK PAIN ) Degenerate Disk Disease, Fibromyalgia, Chronic Back Pain Endocrine: Yes (NON-COMPLAINT;MULTIPLE EPISODES OF DKA-EASILY CONTROLLED ON INSULIN IN HOSP) Diabetes, Insulin dep HEENT: Yes (GLASSES; S/P BMT'S) Chronic Ear Infection Loss of Vision: Bilateral Hearing Impairment: Hard of Hearing Cancer: No Psychosocial: Yes Anxiety Integumentary: Yes Psoriasis Blood Disorders: No Adverse Reaction/Blood Tranf: No Family Medical History Cancer of mouth 19 FATHER ( of esophogeal cancer.) Cardiovascular disease 19 MOTHER G8 BROTHER Completed stroke 19 FATHER G8 BROTHER Diabetes mellitus G8 BROTHER FH: lung cancer 19 MOTHER Hypertension 19 FATHER Kidney disease 19 FATHER Myocardial infarction 19 MOTHER G8 BROTHER Respiratory disorder No Family History of: AIDS CAD Over 55 Years Old, CVA, Diabetes, GI Disease, Renal Disease PSH: -LINQ DEVICE PLACED 11/09/19 FOR REPORTED PALPITATIONS X 6 MONTHS, SINCE PERCOCET WAS DC'D -MULTIPLE CARDIAC CATHS--STENT X 1 TO LAD 07/13/15. LAST CATH 01/18/19--NO INTERVENTION -LUMBAR SPINE FUSION X 3--12/2002, 04/2007, AND 05/2007 -LUMBAR DISCECTOMY 10/2000--? LAMINECTOMY? -CERVICAL SPINE FUSION 11/2006 -CHOLECYSTECTOMY 1984 -BMT'S -LITHOTRIPSY AND RIGHT URETERAL STENT -EGD'S WITH ESOPHAGEAL DILATIONS -COLONOSCOPIES, LAST ONE 03/08/19 -PORT RIGHT CHEST -LEFT SHOULDER ROTATOR CUFF REPAIR 05/01/20--DR. PALACIOS -CONTINUOUS GLUCOSE MONITOR PRESENT 06/25/20--LLQ OF ABDOMEN Review of Systems Time Seen by Provider: 05:03 Sepsis Event Evaluation Height, Weight, BMI Height: 5'1.00" Weight: 122lbs. 1.0oz. 55.234231ic; 27.70 BMI Method:Estimated Exam Exam Vital Signs Date Time Temp Pulse Resp B/P (MAP) Pulse Ox O2 Delivery O2 Flow Rate FiO2 07/18/20 04:36 36.3 07/18/20 04:00 96 Room Air 07/18/20 04:00 71 17 173/94 (120) 100 Room Air 07/18/20 03:00 61 11 164/78 (106) 99 Room Air 07/18/20 02:00 63 11 135/71 (92) 98 Room Air 07/18/20 01:00 65 07/18/20 01:00 64 12 152/79 (103) 98 Room Air 07/18/20 00:17 36.6 07/18/20 00:00 65 13 155/77 (103) 97 Room Air 07/18/20 00:00 96 Room Air 07/17/20 23:30 67 20 155/70 (98) 96 Room Air 07/17/20 23:00 68 18 156/77 (103) 98 Room Air 07/17/20 22:45 70 11 153/68 (96) 98 Room Air 07/17/20 22:30 76 14 161/78 (105) 99 Room Air 07/17/20 22:21 80 16 142/71 98 Room Air 07/17/20 22:21 75 07/17/20 22:15 77 15 158/89 (112) 97 Room Air 07/17/20 22:09 37.0 77 18 156/98 (117) 97 Room Air 07/17/20 22:05 98 Room Air 07/17/20 19:52 36.6 88 14 196/86 (122) 98 Room Air I & O 07/18/20 07:00 Intake Total 1800 ml Output Total 150 ml Balance 1650 ml Height & Weight Height: 5'1.00" Weight: 122lbs. 1.0oz. 55.282421hy; 27.70 BMI Method:Estimated General Appearance: WD/WN, Chronically ill, Mild Distress HEENT: PERRL/EOMI, Pharynx Normal, Moist Mucous Membranes Neck: Full Range of Motion, Normal Inspection, Non Tender Respiratory: Lungs Clear, Normal Breath Sounds, No Accessory Muscle Use, No Respiratory Distress Cardiovascular: Regular Rate, Rhythm, No Edema, Normal Peripheral Pulses, Tachycardia Capillary Refill: Less Than 3 Seconds Extremity: Normal Capillary Refill, Normal Inspection, Normal Range of Motion, No Pedal Edema Neurologic/Psychiatric: Alert, Oriented x3, No Motor/Sensory Deficits, Normal Mood/Affect Skin: Normal Color, Warm/Dry Results Lab Laboratory Tests 07/17/20 19:41 07/17/20 23:00 07/18/20 03:43 Assessment/Plan Assessment/Plan Hyperglycemia -Now improved -Will transfer to 4th floor. Anemia -Monitor KIM FUNEZ DO Jul 18, 2020 04:58
[2020-07-18] MEDS: LACTATED RINGERS 1,000 ML IV SCH ×2 (05:52→17:21)
[2020-07-18] MEDS: PANTOPRAZOLE 20 MG TABLET (PROTONIX) PO SCH (05:53)
[2020-07-18] MEDS: inSUlin ASPART (NovoLOG) 1 UNIT/0.01 ML (CHARGE PER UNIT) SC SCH ×4 (05:53→21:00)
[2020-07-18] MEDS: oxyCODONE/APAP 5/325MG (PERCOCET 5) TABLET PO PRN ×2 (05:53→12:21)
[2020-07-18] MEDS ORDERED: POTASSIUM CL 10MEQ/50ML IVPB 50 ML IV SCH (06:00)
[2020-07-18] MEDS ORDERED: KCL 20 MEQ TAB (K-DUR) PO SCH (06:00)
[2020-07-18] MEDS ORDERED: MAGNESIUM 1 GM/100 ML IVPB 100 ML IV SCH (06:00)
[2020-07-18] MEDS: APIXABAN 5 MG (ELIQUIS) TABLET PO SCH ×2 (08:18→19:54)
[2020-07-18] MEDS: GABAPENTIN 400 MG (NEURONTIN) CAP PO SCH (08:18)
--- NOTE | 2020-07-18 09:12 | History & Physical-Hospitalist ---
History of Present Illness HPI/Chief Complaint Pt is a 60yCF with a PMH if IDDMII who presented to the ER due elevated blood sugars and nausea and vomiting. She states that she was just seen by her professional fee coder who she states was concerned about her lows. She was unsure if any changes had been made in her regimen. For the past couple of days she has had increasing nausea and vomiting and unable to keep anything down. Here blood sugars started rising prompting her to seek evaluation in the ER. She was found to have very high blood sugar at 764. She had persistent nausea and vomiting and was admitted. This morning she states she is feeling better but is still nauseated. Source: patient Date Seen 07/18/20 Time Seen by a Provider: 09:00 Attending Physician Dario Thurman MD PCP Gerardo Greenwood DO Referring Physician Date of Admission Jul 17, 2020 at 21:35 Home Medications & Allergies Home Medications Reviewed patient Home Medication Reconciliation performed by pharmacy medication reconciliations line service technician and/or nursing. Patients Allergies have been reviewed. Allergies Allergies Coded Allergies ketorolac (Verified Allergy, Severe, ANAPHYLAXIS, PT TAKES ASA AT HOME, 03/06/19) ondansetron (Verified Allergy, Intermediate, RASH, 03/06/19) RASH/ HIVES scopolamine (Verified Allergy, Mild, Rash, 03/21/19) exenatide (Verified Allergy, Unknown, NAUSEA, 03/06/19) NON STOP VOMITING latex (Verified Allergy, Unknown, RASH, 03/06/19) metoclopramide (Verified Allergy, Unknown, RESTLESS LEGS, 03/06/19) erythromycin base (Verified Adverse Reaction, Unknown, 03/21/19) Past Qdhvjds-Tsuysl-Aubibo Hx Past Med/Social Hx: Reviewed Nursing Past Med/Soc Hx Patient Social History Employed/Student: unemployed Alcohol Use: Occasionally Uses Alcohol Beverage of Choice: Wine Recreational Drug Use: Yes Drug of Choice: NARCOTIC ABUSE Smoking Status: Former Smoker Former Smoker, Quit: Nov 10, 2017 Type Used: Cigarettes 2nd Hand Smoke Exposure: No Recent Foreign Travel: No Contact w/other who traveled: No Recent Hopitalizations: No Recent Infectious Disease Expo: No Immunizations Up To Date Tetanus Booster (TDap): Unknown Pediatric: No Date of Pneumonia Vaccine: Nov 06, 2019 Date of Influenza Vaccine: Nov 22, 2019 Seasonal Allergies Seasonal Allergies: Yes Past Medical History Surgeries: Cardiac, Coronary Stent, Ear Surgery, Gallbladder, Orthopedic, Renal Respiratory: Asthma Currently Using CPAP: No Currently Using BIPAP: No Cardiac: Chronic Edema/Swelling, Coronary Artery Disease, Deep Vein Thrombosis, High Cholesterol, Hypertension, Palpitations Neurological: Headaches /Migraines, Neuropathy 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: No Sexually Transmitted Disease: No HIV/AIDS: No 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 Disorders: Denies Menopausal Genitourinary: Bladder Infection, Kidney Stones, Renal Failure Gastrointestinal: Gastroesophageal Reflux, Diverticulosis, Esophagitis, Irritable Bowel Musculoskeletal: Degenerate Disk Disease, Fibromyalgia, Chronic Back Pain Endocrine: Diabetes, Insulin dep HEENT: Chronic Ear Infection Loss of Vision: Bilateral Hearing Impairment: Hard of Hearing Psychosocial: Anxiety Skin/Integumentary: Psoriasis History of Blood Disorders: No Adverse Reaction to Blood Green: No Family History Cancer of mouth 19 FATHER ( of esophogeal cancer.) Cardiovascular disease 19 MOTHER G8 BROTHER Completed stroke 19 FATHER G8 BROTHER Diabetes mellitus G8 BROTHER FH: lung cancer 19 MOTHER Hypertension 19 FATHER Kidney disease 19 FATHER Myocardial infarction 19 MOTHER G8 BROTHER Respiratory disorder No Family History of: AIDS CAD Over 55 Years Old, CVA, Diabetes, GI Disease, Renal Disease PSH: -LINQ DEVICE PLACED 11/09/19 FOR REPORTED PALPITATIONS X 6 MONTHS, SINCE PERCOCET WAS DC'D -MULTIPLE CARDIAC CATHS--STENT X 1 TO LAD 07/13/15. LAST CATH 01/18/19--NO INTERVENTION -LUMBAR SPINE FUSION X 3--12/2002, 04/2007, AND 05/2007 -LUMBAR DISCECTOMY 10/2000--? LAMINECTOMY? -CERVICAL SPINE FUSION 11/2006 -CHOLECYSTECTOMY 1984 -BMT'S -LITHOTRIPSY AND RIGHT URETERAL STENT -EGD'S WITH ESOPHAGEAL DILATIONS -COLONOSCOPIES, LAST ONE 03/08/19 -PORT RIGHT CHEST -LEFT SHOULDER ROTATOR CUFF REPAIR 05/01/20--DR. PALACIOS -CONTINUOUS GLUCOSE MONITOR PRESENT 06/25/20--LLQ OF ABDOMEN Review of Systems Constitutional: No chills, No fever; weakness EENTM: no symptoms reported Respiratory: No dyspnea on exertion, No short of breath Cardiovascular: No chest pain, No palpitations Gastrointestinal: nausea, vomiting Genitourinary: No dysuria, No incontinence Musculoskeletal: joint pain (chronic left shoulder pain) Skin: no symptoms reported Psychiatric/Neurological: No Symptoms Reported Physical Exam Physical Exam Vital Signs Vital Signs - First Documented 07/17/20 19:52 Temp 36.6 Pulse 88 Resp 14 B/P (MAP) 196/86 (122) Pulse Ox 98 O2 Delivery Room Air Capillary Refill : Less Than 3 Seconds Height, Weight, BMI Height: 5'1.00" Weight: 122lbs. 1.0oz. [id number]; 27.70 BMI Method:Estimated General Appearance: No Apparent Distress, Chronically ill HEENT: PERRL/EOMI, Moist Mucous Membranes; No Scleral Icterus (L), No Scleral Icterus (R) Neck: Normal Inspection, Supple Respiratory: Lungs Clear, No Accessory Muscle Use, No Respiratory Distress Cardiovascular: Regular Rate, Rhythm, No Murmur Gastrointestinal: Normal Bowel Sounds, Non Tender, Soft Extremity: No Calf Tenderness, No Pedal Edema Neurologic/Psychiatric: Alert, Oriented x3, Normal Mood/Affect Skin: Normal Color, Warm/Dry Results Results/Procedures Labs Laboratory Tests 07/17/20 19:41 07/17/20 23:00 07/18/20 03:43 Patient resulted labs reviewed. Assessment/Plan Admission Diagnosis Intractable nausea and vomiting Admission Status: Observation Assessment and Plan Intractable nausea and vomiting Continue Phenergan IVF Has multiple allergies to antiemetics Poorly controlled IDDMII Did not ever necessitate insulin gtt Will resume home insulin Multiple admissions Discussed with her on her last admission regarding skilled nursing admission and she declined Will continue this conversation this admission as she would benefit from supervised carer Chronic pain Left shoulder pain Follows with ortho On chronic narcotics DVt ppx: Eliquis from home Clinical Quality Measures DVT/VTE Risk/Contraindication: Risk Factor Score Per Nursin RFS Level Per Nursing on Admit: 4+=Very High GERARDO RITTER MD Jul 18, 2020 09:12
--- NOTE | 2020-07-18 09:58 | NUR ---
PT TRANSFERRED TO ROOM 424 VIA W/ STAFF AND PERSONAL BELONGINGS. REPORT GIVEN TO BRIE SÁNCHEZ. NO QUESTIONS/CONCERNS VOICED.
--- NOTE | 2020-07-18 10:00 | NUR ---
ICU TRANSFER TO ROOM 424. PT A/O X4. ORIENTED TO ROOM/CALL LIGHT, CALL LIGHT WITHIN REACH. DENIES ANY NEEDS AT THIS TIME.
--- NOTE | 2020-07-18 10:11 | NUR ---
CM/SS: Visited with pt as to plan for discharge and her recent readmission to the hospital Plan: Undetermined at this time Summary: Visited with pt as to plan for discharge and her recent readmission to the hospital. Pt reports having issues with her blood sugars and feeling sick for the last few days and so she decided that she needing to return to the hospital. Pt reports that she was to have home care when she left, but she did not follow through with it. Pt indicates that she was told about being homebound and she was not homebound so she did not work with them. This worker explained that the home care was set up to help her manage her blood sugars and monitor her status post hospital. This worker shares she will follow up and talk with pt further closer to her time of discharge, as pt seemed sleepy and recently had a pain pill. This worker will follow up.
--- NOTE | 2020-07-18 12:58 | NUR ---
RD ASSESSMENT PMHx: DM; CAD; DVT; hypercholesterolemia; GERD; HTN; diverticulosis; esophagitis; irritable bowel PT INTERACTION: Pt was awake and pleasant during nutrition assessment. Pt states current appetite is poor. Note PO intake 100% x1meal, per chart review. Pt states following a diabetic diet at home, and has some issues with chewing food, as she is missing her top teeth. Pt states some recent issues with nausea, vomiting, and diarrhea, and that her last BM was 07/17. Note pt not currently on bowel regimen, per chart review. Pt states no recent wt changes. Note recent 11# wt loss x1mon, per chart review. Pt states current DM management as "I think I'm doing pretty good." Note previous admissions for DKA and hyperglycemia, and recent HbA1c of 9.7 (07/01/20), per chart review. ABNORMAL NUTRITION-RELATED LAB VALUES LOW: Ca 8.4; Mg 1.5; Pro 5.9 HIGH: Cl 110; glu 115 Est. kcal needs: 1275 kcal | 20 kcal/kg Est. Pro needs: 63 g Pro | 1.0 g Pro/kg PES STATEMENT: Food- and nutrition-related knowledge deficit (NB-1.1) related to lack of utilizing previous nutrition information as evidenced by chart review | pt interview INTERVENTION: Continue with current diet order of CHO 60g/m 1snack diet. Offered and reinforced previous diet education on DM management. Discussed CHO counting, portion control, and fiber intake. Pt verbalized understanding of information provided. Will continue to follow and reassess as pt needs, intake, and status change. MONITOR/EVALUATE: PO Intake; Plan of Care; Hydration Status; Weight Status; Lab Values Sue Isaac, MS, RD, LD
[2020-07-18] MEDS ORDERED: ATOR20TA66 PO (13:57)
[2020-07-18] MEDS ORDERED: GLUC1KIT INJ (13:57)
[2020-07-18] MEDS ORDERED: ACET325C7 PO (13:59)
--- NOTE | 2020-07-18 13:59 | NUR ---
SPOKE WITH THE PHARMACY AND WENT THRU THE EXT MED HISTORY TO COMPLETE THE MED REC PT WAS ABLE TO TELL ME ALL HER MEDICATIONS WELL WHEN/HOW SHE TAKES EACH- ALL HER INFORMATION MATCHED THE EXT MED HISTORY OTC MEDS: TYLENOL MELATONIN SOOTHE EYE LUBRICANT BENADRYL ASPIRIN 81MG
[2020-07-18] MEDS ORDERED: LORATADINE (CLARITIN) 10 MG TAB PO ONE (14:15)
[2020-07-18] MEDS ORDERED: GABAPENTIN 400 MG (NEURONTIN) CAP PO SCH (21:00)
[2020-07-18] MEDS ORDERED: MELATONIN 10 MG TABLET PO SCH (21:00)
[2020-07-19 00:59] VITALS: BP 158/72
[2020-07-19] MEDS: LACTATED RINGERS 1,000 ML IV SCH ×2 (01:00→05:29)
[2020-07-19] MEDS: morphine INJ 4 MG/ML 1 ML (VIAL/SYRINGE) IV PRN (03:00)
[2020-07-19] MEDS: diphenhydrAMINE 50 MG/ML INJ (BENADRYL) IVP PRN ×2 (03:00→08:23)
[2020-07-19] MEDS: PROMETHAZINE INJ 25 MG/ML (PHENERGAN) AMP IVP PRN ×3 (03:00→08:23)
[2020-07-19 04:00] VITALS: BP 158/72
[2020-07-19] MEDS: PANTOPRAZOLE 20 MG TABLET (PROTONIX) PO SCH (05:26)
[2020-07-19] MEDS: oxyCODONE/APAP 5/325MG (PERCOCET 5) TABLET PO PRN ×2 (05:27→11:16)
[2020-07-19 05:59] VITALS: BP 158/72
[2020-07-19] MEDS: inSUlin ASPART (NovoLOG) 1 UNIT/0.01 ML (CHARGE PER UNIT) SC SCH ×2 (06:00→11:15)
[2020-07-19] MEDS: APIXABAN 5 MG (ELIQUIS) TABLET PO SCH (08:21)
[2020-07-19] MEDS: GABAPENTIN 400 MG (NEURONTIN) CAP PO SCH (08:22)
[2020-07-19] MEDS ORDERED: LORATADINE (CLARITIN) 10 MG TAB PO SCH (09:00)
--- NOTE | 2020-07-19 09:25 | NUR ---
CM/SS: Visited with pt as to plan for discharge Plan: Pt to return home with no identified services Summary: Pt continues to complain of pain to her shoulder. Pt is reminded that it may still be sore from her most recent fall. Pt expresses frustration with Dr. Avila as he will not provide her with more medications. Pt is asked about taking her pain medication as prescribed. She reports she does. Pt continues to complain of different things. Pt is asked about going somewhere as to a facility and she indicates she does not want to go anywhere. Pt then will return home, with no identified services, as she did not cooperate with home care after her last hospital stay, pt will have no identified services. Pt is encouraged to follow up with her primary physician and be compliant with her medications and blood sugars, pt verbalizes understanding, and is wished well. Pt reports as far as she knows she will be able to have a ride when she is dismissed.
--- NOTE | 2020-07-19 10:51 | Discharge Inst-Simple/Standard ---
Discharge Inst-Standard Patient Instructions/Follow Up Plan of Care/Instructions/FU: Please continue to take your medications as written. Please follow up with your primary care doctor in the next week to follow up this hospital stay. Activity as Tolerated: Yes Discharge Diet: No Restrictions, ADA Diet Return to The Hospital For: Chest pain, shortness of breath, abdominal pain, nausea and vomiting, high blood sugars, decreased urine output, if you feel you are getting worse. GERARDO RITTER MD Jul 19, 2020 10:51
--- NOTE | 2020-07-19 10:52 | Discharge Summary ---
Diagnosis/Chief Complaint Date of Admission Jul 17, 2020 at 21:35 Date of Discharge Discharge Date: Jul 19, 2020 Admission Diagnosis Intractable nausea and vomiting Primary Care Gerardo Greenwood DO Discharge Summary Procedures/Consulations Dr Bright- Pulmonology Discharge Physical Exam Allergies: Coded Allergies: ketorolac (Verified Allergy, Severe, ANAPHYLAXIS, PT TAKES ASA AT HOME, 03/06/19) ondansetron (Verified Allergy, Intermediate, RASH, 03/06/19) RASH/ HIVES scopolamine (Verified Allergy, Mild, Rash, 03/21/19) exenatide (Verified Allergy, Unknown, NAUSEA, 03/06/19) NON STOP VOMITING latex (Verified Allergy, Unknown, RASH, 03/06/19) metoclopramide (Verified Allergy, Unknown, RESTLESS LEGS, 03/06/19) erythromycin base (Verified Adverse Reaction, Unknown, 03/21/19) Vitals & I&Os Vital Signs Date Time Temp Pulse Resp B/P (MAP) Pulse Ox O2 Delivery O2 Flow Rate FiO2 07/19/20 11:35 37.1 64 19 158/72 97 Room Air General Appearance: No Apparent Distress, Chronically ill Respiratory: Lungs Clear, No Respiratory Distress Cardiovascular: Regular Rate, Rhythm, No Murmur Neurologic/Psychiatric: Alert, Oriented x3 Hospital Course patient was admitted secondary to intractable nausea and vomiting with severe hyperglycemia. Her hyperglycemia resolved with bolus insulin and did not necessitate an insulin drip. Her nausea improved as well. She had an uneventful hospital stay. She is to follow-up with her primary care provider Dr. Greenwood to follow up this hospital stay. Again I discussed with her the benefits of halfway or at least supervised facility for ongoing care given that this is her seventh admission since November with 6 other ER visits in that same timeframe but she declined. Labs (last 24 hrs) Microbiology 07/17/20 MRSA Screen - Final, Complete MRSA not isolated Patient resulted labs reviewed. Pending Labs Discussion & Recommendations Discharge Planning: <30 minutes discharge planning Discharge Home Medications: Active Scripts Active Oxycodone-Acetaminophen 5-325 (Oxycodone HCl/Acetaminophen) 1 Each Tablet 1 Each PO Q4H PRN MDD 6 Reported Tylenol (Acetaminophen) 325 Mg Capsule 650 Mg PO Q6H PRN Atorvastatin Calcium 20 Mg Tablet 20 Mg PO HS Glucagon Emergency Kit (Glucagon,Human Recombinant) 1 Mg/Kit Soln 1 Mg INJ UD PRN Soothe Lubricant Eye Drops (Glycerin/Propylene Glycol) 1 Each Droperette 2 Drops OU PRN PRN Benadryl Allergy (Diphenhydramine HCl) 25 Mg Tablet 25-50 Mg PO Q6H PRN Melatonin 5 Mg Tablet 5 Mg PO HS Novolog Flexpen (Insulin Aspart) 300 Units/3 Ml Solution Units SC TIDAC USES PER SLIDING SCALE Eliquis (Apixaban) 5 Mg Tablet 5 Mg PO BID Tramadol HCl 50 Mg Tablet 50 Mg PO Q6H PRN Gabapentin 800 Mg Tablet 800 Mg PO DAILY Levemir Flextouch (Insulin Detemir) 100 Unit/1 Ml Insuln.pen 15 Unit SQ BID Omeprazole 20 Mg Capsule.dr 20 Mg PO DAILY Aspirin EC (Aspirin) 81 Mg Tablet.dr 81 Mg PO DAILY Gabapentin 800 Mg Tablet 1,600 Mg PO HS TAKES 2 (800MG) TABLETS Instructions to patient/family Please see electronic discharge instructions given to patient. Clinical Quality Measures DVT/VTE Risk/Contraindication: Risk Factor Score Per Nursin RFS Level Per Nursing on Admit: 4+=Very High Copy Copies To 1: GERARDO GREENWOOD KATELYN M MD Jul 19, 2020 10:52
[2020-07-19 11:35] VITALS: BP 158/72
--- NOTE | 2020-07-19 11:35 | NUR ---
VALENTE HARPER demonstrates understanding of discharge instructions and accurately returns instructions upon questioning. Copy of Post-Discharge Instructions and Medication Discharge Instructions given to PT. VALENTE HARPER is able to manage continuing needs after discharge. Patients belongings returned to PT. Skin dry and intact; no breakdown noted. Patient discharged from [facility]- on 07/19/20 at 1135. VALENTE HARPER left floor via WC, accompanied by STAFF.
== END 2020-07-19 11:35 | disposition home or self-care (01) ==
LOC: EDUNIT# 19:33 → ER 19:35 → INTOOBSV 21:35 → UNDOADMOB 21:35 → ICU 21:35 → 4TH 07-18 09:58 → UNDODISOB 07-19 11:35
PROVIDERS: ADMIT Internal Medicine; ATTEND Internal Medicine
DX: E11.69 Type 2 diabetes mellitus with other specified complication (principal); R11.2 Nausea with vomiting, unspecified; I10 Essential (primary) hypertension; E78.00 Pure hypercholesterolemia, unspecified; I25.10 Atherosclerotic heart disease of native coronary artery without angina pectoris; G43.909 Migraine, unspecified, not intractable, without status migrainosus; K21.0 Gastro-esophageal reflux disease with esophagitis; F41.9 Anxiety disorder, unspecified; G89.29 Other chronic pain; G47.30 Sleep apnea, unspecified; J42 Unspecified chronic bronchitis; E72.51 Non-ketotic hyperglycinemia; Z79.01 Long term (current) use of anticoagulants; Z79.82 Long term (current) use of aspirin; Z79.899 Other long term (current) drug therapy; Z79.4 Long term (current) use of insulin; Z91.040 Latex allergy status; Z88.1 Allergy status to other antibiotic agents; Z88.8 Allergy status to other drugs, medicaments and biological substances; Z87.891 Personal history of nicotine dependence; Z80.0 Family history of malignant neoplasm of digestive organs
CPT/HCPCS: 80048; 80053 ×2; 81000; 82010 ×2; 82962 ×3; 83036; 83735; 84100; 85025 ×2; 85027; 87081; 96374; 96375; 96376; 99285; G0378; 36415

== ENCOUNTER 2020-07-22 20:46 | Emergency (ER) | payer MEDICARE ==
[~2020-07-22] VITALS: Ht 149.9 cm; Wt 63.5 kg
[~2020-07-22 20:46] MED LIST changes: +ACET325C7 PO; +GLUC1KIT INJ
--- NOTE | 2020-07-22 20:53 | ED General ---
General Stated Complaint: FALL;HIP PAIN Source of Information: Patient Exam Limitations: No Limitations History of Present Illness Date Seen by Provider: Jul 22, 2020 Time Seen by Provider: 20:51 Initial Comments To ER by EMS with reports of a fall after tripping. She has pain in the right forearm, right hip pain. She is in a c-collar because she fell and complains of neck pain as well but her neck pain is chronic. She is a well-known diabetic and her blood sugar is too high to read despite allegedly taking her insulin at 7:45 PM. Timing/Duration: 1-3 Hours Severity: Moderate Associated Systoms: Other (pain denies nausea and vomiting at this time) Allergies and Home Medications Allergies Coded Allergies: ketorolac (Verified Allergy, Severe, ANAPHYLAXIS, PT TAKES ASA AT HOME, 03/06/19) ondansetron (Verified Allergy, Intermediate, RASH, 03/06/19) RASH/ HIVES scopolamine (Verified Allergy, Mild, Rash, 03/21/19) exenatide (Verified Allergy, Unknown, NAUSEA, 03/06/19) NON STOP VOMITING latex (Verified Allergy, Unknown, RASH, 03/06/19) metoclopramide (Verified Allergy, Unknown, RESTLESS LEGS, 03/06/19) erythromycin base (Verified Adverse Reaction, Unknown, 03/21/19) Home Medications Acetaminophen 325 Mg Capsule, 650 MG PO Q6H PRN for PAIN-MILD (1-4) OR TEMPATURE, (Reported) Apixaban 5 Mg Tablet, 5 MG PO BID, (Reported) Aspirin 81 Mg Tablet.dr, 81 MG PO DAILY, (Reported) Atorvastatin Calcium 20 Mg Tablet, 20 MG PO HS, (Reported) Diphenhydramine HCl 25 Mg Tablet, 25-50 MG PO Q6H PRN for ALLERGY SYMPTOMS, (Reported) Gabapentin 800 Mg Tablet, 1,600 MG PO HS, (Reported) TAKES 2 (800MG) TABLETS Gabapentin 800 Mg Tablet, 800 MG PO DAILY, (Reported) Glucagon,Human Recombinant 1 Mg/Kit Soln, 1 MG INJ UD PRN for HYPERGLYCEMIA, (Reported) Glycerin/Propylene Glycol 1 Each Droperette, 2 DROPS OU PRN PRN for DRY EYES, (Reported) Insulin Aspart 300 Units/3 Ml Solution, UNITS SC TIDAC, (Reported) USES PER SLIDING SCALE Insulin Detemir 100 Unit/1 Ml Insuln.pen, 15 UNIT SQ BID, (Reported) Melatonin 5 Mg Tablet, 5 MG PO HS, (Reported) Omeprazole 20 Mg Capsule.dr, 20 MG PO DAILY, (Reported) Oxycodone HCl/Acetaminophen 1 Each Tablet, 1 EACH PO Q4H PRN for PAIN-SEVERE Prescribed by: GERARDO RITTER on 06/18/20 1047 Tramadol HCl 50 Mg Tablet, 50 MG PO Q6H PRN for PAIN-MODERATE (5-7), (Reported) Patient Home Medication List Home Medication List Reviewed: Yes Review of Systems Review of Systems Constitutional: see HPI EENTM: see HPI Respiratory: no symptoms reported Cardiovascular: no symptoms reported Genitourinary: no symptoms reported Musculoskeletal: see HPI Skin: no symptoms reported Psychiatric/Neurological: No Symptoms Reported Hematologic/Lymphatic: No Symptoms Reported Immunological/Allergic: no symptoms reported Past Nvmkhty-Mjbzzp-Johbns Hx Patient Social History Alcohol Beverage of Choice: Wine Drug of Choice: NARCOTIC ABUSE Type Used: Cigarettes Former Smoker, Quit: Nov 10, 2017 2nd Hand Smoke Exposure: No Recent Hopitalizations: No Immunizations Up To Date Tetanus Booster (TDap): Unknown PED Vaccines UTD: No Date of Pneumonia Vaccine: Nov 06, 2019 Date of Influenza Vaccine: Nov 22, 2019 Seasonal Allergies Seasonal Allergies: Yes Past Medical History Surgeries: Yes (LITHOTRIPSY;LUMBAR SURGERY X 4;BMT'S;EGD'S WITH ESOPHAGEAL DILATIONS;) Cardiac, Coronary Stent, Ear Surgery, Gallbladder, Orthopedic, Renal Respiratory: Yes Chronic Bronchitis, Sleep Apnea Currently Using CPAP: No Currently Using BIPAP: No Cardiac: Yes (DVT'S IN ARMS; CARDIAC STENT X 1; CAROTID DISEASE;LINQ DEVICE) Chronic Edema/Swelling, Coronary Artery Disease, Deep Vein Thrombosis, High Cholesterol, Hypertension, Palpitations Neurological: Yes (NEUROPATHY IN HANDS AND FEET) Headaches /Migraines, Neuropathy 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 Disorders: No 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 Disorders: Denies 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 Sexually Transmitted Disease: No HIV/AIDS: No Genitourinary: Yes Bladder Infection, Kidney Stones, Renal Failure Gastrointestinal: Yes (GASTRITIS;ESOPH STRICTURE/DILATION;GASTROPARESIS-CHRONIC N/V/ABD PAIN;DAVID) Gastroesophageal Reflux, Diverticulosis, Esophagitis, Irritable Bowel Musculoskeletal: Yes (CHRONIC GENERALIZED PAIN;CHRONIC BILAT SHOULDER PAIN;CHRONIC NECK PAIN ) Degenerate Disk Disease, Fibromyalgia, Chronic Back Pain Endocrine: Yes (NON-COMPLAINT;MULTIPLE EPISODES OF DKA-EASILY CONTROLLED ON INSULIN IN HOSP) Diabetes, Insulin dep HEENT: Yes (GLASSES; S/P BMT'S) Chronic Ear Infection Loss of Vision: Bilateral Hearing Impairment: Hard of Hearing Cancer: No Psychosocial: Yes Anxiety Integumentary: Yes Psoriasis Blood Disorders: No Adverse Reaction/Blood Tranf: No Family Medical History Cancer of mouth 19 FATHER ( of esophogeal cancer.) Cardiovascular disease 19 MOTHER G8 BROTHER Completed stroke 19 FATHER G8 BROTHER Diabetes mellitus G8 BROTHER FH: lung cancer 19 MOTHER Hypertension 19 FATHER Kidney disease 19 FATHER Myocardial infarction 19 MOTHER G8 BROTHER Respiratory disorder No Family History of: AIDS CAD Over 55 Years Old, CVA, Diabetes, GI Disease, Renal Disease PSH: -LINQ DEVICE PLACED 11/09/19 FOR REPORTED PALPITATIONS X 6 MONTHS, SINCE PERCOCET WAS DC'D -MULTIPLE CARDIAC CATHS--STENT X 1 TO LAD 07/13/15. LAST CATH 01/18/19--NO INTERVENTION -LUMBAR SPINE FUSION X 3--12/2002, 04/2007, AND 05/2007 -LUMBAR DISCECTOMY 10/2000--? LAMINECTOMY? -CERVICAL SPINE FUSION 11/2006 -CHOLECYSTECTOMY 1983 -BMT'S -LITHOTRIPSY AND RIGHT URETERAL STENT -EGD'S WITH ESOPHAGEAL DILATIONS -COLONOSCOPIES, LAST ONE 03/08/19 -PORT RIGHT CHEST -LEFT SHOULDER ROTATOR CUFF REPAIR 05/01/20--DR. PALACIOS -CONTINUOUS GLUCOSE MONITOR PRESENT 06/25/20--LLQ OF ABDOMEN Physical Exam Vital Signs Vital Signs - First Documented 07/22/20 21:06 Temp 36.9 Pulse 88 Resp 18 B/P (MAP) 185/81 (115) O2 Delivery Room Air Capillary Refill : Height, Weight, BMI Height: 5'1.00" Weight: 122lbs. 1.0oz. 55.942123tu; 27.70 BMI Method:Estimated General Appearance: No Apparent Distress, Chronically ill Neck: Full Range of Motion Respiratory: No Accessory Muscle Use, No Respiratory Distress Gastrointestinal: Normal Bowel Sounds, Non Tender, Soft Extremity: Normal Capillary Refill, Other (no deformity ecchymosis or swelling to the right forearm where she complains of pain) Neurologic/Psychiatric: Alert, Oriented x3 Procedures/Interventions Date of ETT Placement: Dec 30, 2019 Time of ETT Placement: 0750 Progress/Results/Core Measures Suspected Sepsis SIRS Temperature: Pulse: Respiratory Rate: Laboratory Tests 07/22/20 20:59: White Blood Count 7.8 Blood Pressure / Mean: Laboratory Tests 07/22/20 20:59: Creatinine 1.30, Platelet Count 218, Total Bilirubin 0.2 Results/Orders Lab Results Laboratory Tests Test 07/22/20 20:59 07/22/20 21:42 Range/Units White Blood Count 7.8 4.3-11.0 10^3/uL Red Blood Count 3.97 L 4.35-5.85 10^6/uL Hemoglobin 11.9 11.5-16.0 G/DL Hematocrit 35 35-52 % Mean Corpuscular Volume 88 80-99 FL Mean Corpuscular Hemoglobin 30 25-34 PG Mean Corpuscular Hemoglobin Concent 34 32-36 G/DL Red Cell Distribution Width 14.0 10.0-14.5 % Platelet Count 218 130-400 10^3/uL Mean Platelet Volume 10.6 H 7.4-10.4 FL Neutrophils (%) (Auto) 54 42-75 % Lymphocytes (%) (Auto) 35 12-44 % Monocytes (%) (Auto) 5 0-12 % Eosinophils (%) (Auto) 5 0-10 % Basophils (%) (Auto) 1 0-10 % Neutrophils # (Auto) 4.2 1.8-7.8 X 10^3 Lymphocytes # (Auto) 2.7 1.0-4.0 X 10^3 Monocytes # (Auto) 0.4 0.0-1.0 X 10^3 Eosinophils # (Auto) 0.4 H 0.0-0.3 10^3/uL Basophils # (Auto) 0.1 0.0-0.1 10^3/uL Sodium Level 129 L 135-145 MMOL/L Potassium Level 4.6 3.6-5.0 MMOL/L Chloride Level 99 98-107 MMOL/L Carbon Dioxide Level 18 L 21-32 MMOL/L Anion Gap 12 5-14 MMOL/L Blood Urea Nitrogen 13 7-18 MG/DL Creatinine 1.30 0.60-1.30 MG/DL Estimat Glomerular Filtration Rate 42 BUN/Creatinine Ratio 10 Glucose Level 786 *H 70-105 MG/DL Calcium Level 8.4 L 8.5-10.1 MG/DL Corrected Calcium 9.0 8.5-10.1 MG/DL Total Bilirubin 0.2 0.1-1.0 MG/DL Aspartate Amino Transf (AST/SGOT) 6 5-34 U/L Alanine Aminotransferase (ALT/SGPT) 6 0-55 U/L Alkaline Phosphatase 97 40-136 U/L Total Protein 6.0 L 6.4-8.2 GM/DL Albumin 3.3 3.2-4.5 GM/DL Beta-Hydroxybutyrate (Chem panel) 0.10 0.00-0.27 MMOL/L Blood Gas Puncture Site RIGHT RADIAL Blood Gas Patient Temperature 36.7 Arterial Blood pH 7.38 7.37-7.43 Arterial Blood Partial Pressure CO2 34 L 35-45 MMHG Arterial Blood Partial Pressure O2 95 H 79-93 MMHG Arterial Blood HCO3 20 L 23-27 MMOL/L Arterial Blood Total CO2 21.0 21.0-31.0 MMOL/L Arterial Blood Oxygen Saturation 98 94-100 % Arterial Blood Base Excess -4.4 L -2.5-2.5 MMOL/L Antonio Test POSITIVE Blood Gas Ventilator Setting NO Blood Gas Inspired Oxygen RA My Orders Orders - JR MARIE APRN Cbc With Automated Diff (07/22/20 20:49) Comprehensive Metabolic Panel (07/22/20 20:49) Ua Culture If Indicated (07/22/20 20:49) Drug Screen Stat (Urine) (07/22/20 20:49) Pelvis With Right Hip 2-3views (07/22/20 20:49) Forearm, Right, 2 Views (07/22/20 20:49) Ct Head/Cervical Spine Wo (07/22/20 20:49) Ns Iv 1000 Ml (Sodium Chloride 0.9%) (07/22/20 21:00) Insulin (Regular) Human (Novolin R (Per (07/22/20 21:00) Lactated Ringers (Lr 1000 Ml Iv Solution (07/22/20 21:30) Beta Hydroxybutyrate (07/22/20 21:32) Diphenhydramine Injection (Benadryl Inje (07/22/20 21:45) Arterial Blood Gas (07/22/20 21:42) Insulin Determir (Per Unit) (Levemir (Pe (07/22/20 22:00) Accucheck Stat ONCE (07/22/20 21:58) Medications Given in ED Current Medications Medications Dose Ordered Sig/Jackie Route Start Time Stop Time Status Last Admin Dose Admin Diphenhydramine HCl 50 mg ONCE ONCE IVP 07/22/20 21:45 07/22/20 21:46 DC 07/22/20 21:46 50 MG Insulin Detemir 20 unit ONCE ONCE SQ 07/22/20 22:00 07/22/20 22:01 DC 07/22/20 22:07 20 UNIT Insulin Human Regular 10 unit ONCE ONCE IV 07/22/20 21:00 07/22/20 21:01 DC 07/22/20 21:01 10 UNIT Vital Signs/I&O 07/22/20 21:06 Temp 36.9 Pulse 88 Resp 18 B/P (MAP) 185/81 (115) O2 Delivery Room Air Capillary Refill : Departure Communication (Admissions) 2127-C collar off at this time 2200-she is chronically hyperglycemic. Her beta hydroxybutyrate does not indicate ketosis. Her blood gas does not reveal acidosis. We'll give her 2 liters of fluids, 10 units of insulin regular subcutaneous and then 20 units of long-acting insulin subcutaneous, get her sugar to more appropriate range and then discharge. She is quite upset with me for not ordering the Benadryl as an IV push and instead ordering it to be put into the bag of IV fluids. Impression Primary Impression: Hyperglycemia Additional Impressions: Uncontrolled diabetes mellitus Qualified Codes: E13.65 - Other specified diabetes mellitus with hyperglycemia Fall Qualified Codes: W19.XXXA - Unspecified fall, initial encounter Acute hip pain Qualified Codes: M25.551 - Pain in right hip Right forearm pain Disposition: 01 HOME, SELF-CARE Condition: Stable Departure-Patient Inst. Decision time for Depature: 22:01 Referrals: CINDY CALABRESE DO (PCP/Family) Primary Care Physician Patient Instructions: Diabetes and Diet Add. Discharge Instructions: 1. Follow-up with Dr. Dr. Calabrese. Return to ER for any concerns. He should strongly consider moving to a care home or assisted care facility to help manage your blood sugars JR MARIE LEAF SORTER Jul 22, 2020 20:52
[2020-07-22] MEDS ORDERED: inSUlin (REGULAR) HUMAN 1 UNIT/0.01 ML (CHARGE PER UNIT) IV ONE (21:00)
[2020-07-22] MEDS ORDERED: NS IV 1000 ML 1,000 ML IV SCH (21:00)
[2020-07-22 21:11] LABS: BASOPHILS # (AUTO) 0.1 10^3/uL (0.0-0.1); BASOPHILS % (AUTO) 1 % (0-10); EOSINOPHILS # (AUTO) 0.4 10^3/uL (0.0-0.3); EOSINOPHILS % (AUTO) 5 % (0-10); HEMATOCRIT 35 % (35-52); HEMOGLOBIN 11.9 G/DL (11.5-16.0); LYMPHOCYTES # (AUTO) 2.7 X 10^3 (1.0-4.0); LYMPHOCYTES % (AUTO) 35 % (12-44); MEAN CORPUSCULAR HEMOGLOBIN 30 PG (25-34); MEAN CORPUSCULAR HGB CONC 34 G/DL (32-36); MEAN CORPUSCULAR VOLUME 88 FL (80-99); MEAN PLATELET VOLUME 10.6 FL (7.4-10.4); MONOCYTES # (AUTO) 0.4 X 10^3 (0.0-1.0); MONOCYTES % (AUTO) 5 % (0-12); NEUTROPHILS # (AUTO) 4.2 X 10^3 (1.8-7.8); NEUTROPHILS % (AUTO) 54 % (42-75); PLATELET COUNT 218 10^3/uL (130-400); WHITE BLOOD COUNT 7.8 10^3/uL (4.3-11.0)
[2020-07-22 21:18] LABS: ALBUMIN 3.3 GM/DL (3.2-4.5); POTASSIUM 4.6 MMOL/L (3.6-5.0)
[2020-07-22 21:19] LABS: CALCIUM 8.4 MG/DL (8.5-10.1)
[2020-07-22 21:22] LABS: BILIRUBIN,TOTAL 0.2 MG/DL (0.1-1.0)
--- NOTE | 2020-07-22 21:22 | Diagnostic Imaging Report ---
PROCEDURE: CT head and CT cervical spine without contrast. TECHNIQUE: Multiple contiguous axial images were obtained through the brain and cervical spine without the use of intravenous contrast. Sagittal and coronal reformations through the cervical spine were then performed. Auto Exposure Controls were utilized during the CT exam to meet ALARA standards for radiation dose reduction. INDICATION: Tripped and fell with pain. Head: There is no hemorrhage, hydrocephalus, edema, mass, mass effect or findings of an elevation of the intracranial pressures. There is a mild degree of predominantly central cerebral cortical atrophy but no acute-appearing abnormality. No calvarial fracture deformity. No hemo-sinus. Cervical spine: The C5-C6 and C7 ACDF has been performed. It appeared solid and incorporated. No findings of pseudoarthrosis. Alignment across, above and below the fusion is anatomic. There is no high-grade cervical canal stenosis. No cervical fracture or paravertebral hematoma. No hardware fracture. IMPRESSION: CT head: No acute-appearing abnormality. CT cervical spine: No acute appearing abnormality. Dictated by: Dictated on workstation # [id number]
[2020-07-22 21:24] LABS: CREATININE SERUM 1.3 MG/DL (0.60-1.30)
[2020-07-22] MEDS ORDERED: LACTATED RINGERS 1,000 ML IV SCH (21:30)
[2020-07-22] MEDS ORDERED: diphenhydrAMINE 50 MG/ML INJ (BENADRYL) IVP ONE (21:45)
[2020-07-22 21:52] LABS: ABG BASE EXCESS -4.4 MMOL/L (-2.5-2.5); ABG OXYGEN SATURATION 98 % (94-100); ABG PCO2 34 MMHG (35-45); ABG PH 7.38 (7.37-7.43); ABG PO2 95 MMHG (79-93)
[2020-07-22 21:55] LABS: ALLENS TEST POSITIVE; INSPIRED O2 RA; PATIENT TEMP 36.7; VENTILATOR NO
--- NOTE | 2020-07-22 22:04 | Diagnostic Imaging Report ---
INDICATION: Injury to right forearm AP and lateral views of the right forearm are obtained. No fracture or acute bony abnormality is seen. IMPRESSION: Negative right forearm. Dictated by: Dictated on workstation # [id number]
--- NOTE | 2020-07-22 22:05 | Diagnostic Imaging Report ---
INDICATION: Fall with right hip pain AP pelvis and AP and oblique views of the right hip are obtained. No fracture or acute bony abnormality is seen. Joint spaces are unremarkable. There are postoperative changes in the lower lumbar spine. IMPRESSION: No acute abnormality of pelvis or right hip. Dictated by: Dictated on workstation # [id number]
[2020-07-22] MEDS ORDERED: PROMETHAZINE INJ 25 MG/ML (PHENERGAN) AMP IVP ONE (22:15)
[2020-07-22] MEDS ORDERED: inSUlin (REGULAR) HUMAN 1 UNIT/0.01 ML (CHARGE PER UNIT) IV SCH (22:15)
[2020-07-22 22:24] LABS: BILIRUBIN,URINE NEGATIVE (NEGATIVE); CLARITY,URINE CLEAR; COLOR,URINE YELLOW; GLUCOSE, URINE (UA) 3+ (NEGATIVE); KETONES,URINE NEGATIVE (NEGATIVE); LEUKOCYTE ESTERASE ,URINE NEGATIVE (NEGATIVE); NITRITE,URINE NEGATIVE (NEGATIVE); PH,URINE 6.5 (5-9); PROTEIN,URINE 2+ (NEGATIVE)
[2020-07-22 22:35] LABS: BACTERIA,URINE NEGATIVE /HPF; RBC,URINE RARE /HPF; SQUAMOUS EPITHELIAL CELL,UR 0-2 /HPF; WBC,URINE RARE /HPF
[2020-07-22 22:39] LABS: AMPHETAMINE SCREEN, URINE NEGATIVE (NEGATIVE); BARBITURATE SCREEN URINE NEGATIVE (NEGATIVE); BENZODIAZEPINES SCREEN URINE NEGATIVE (NEGATIVE); CANNABINOID SCREEN, URINE NEGATIVE (NEGATIVE); COCAINE SCREEN URINE NEGATIVE (NEGATIVE); METHADONE STAT NEGATIVE (NEGATIVE); METHAMPHETAMINE SCREEN URINE S NEGATIVE (NEGATIVE); OPIATE SCREEN URINE NEGATIVE (NEGATIVE); OXYCODONE STAT NEGATIVE (NEGATIVE); PROPOXYPHENE STAT NEGATIVE (NEGATIVE); TRICYCLIC ANTIDEPRESSANTS SCRE NEGATIVE (NEGATIVE)
[2020-07-22] MEDS ORDERED: KCL 10 MEQ TAB (MICRO K) PO ONE (23:00)
[2020-07-22 23:46] VITALS: BP 131/76
== END 2020-07-22 23:48 | disposition home or self-care (01) ==
LOC: EDUNIT# 20:46 → ER 20:48
DX: E11.65 Type 2 diabetes mellitus with hyperglycemia (principal); M25.551 Pain in right hip; M79.631 Pain in right forearm; N19 Unspecified kidney failure; E78.00 Pure hypercholesterolemia, unspecified; G89.29 Other chronic pain; M54.9 Dorsalgia, unspecified; K21.9 Gastro-esophageal reflux disease without esophagitis; Z88.6 Allergy status to analgesic agent; Z88.8 Allergy status to other drugs, medicaments and biological substances; Z91.040 Latex allergy status; Z95.5 Presence of coronary angioplasty implant and graft; Z86.718 Personal history of other venous thrombosis and embolism; Z82.49 Family history of ischemic heart disease and other diseases of the circulatory system; Z80.8 Family history of malignant neoplasm of other organs or systems; Z80.1 Family history of malignant neoplasm of trachea, bronchus and lung; Z87.891 Personal history of nicotine dependence; Z79.01 Long term (current) use of anticoagulants; Z79.82 Long term (current) use of aspirin; Z79.4 Long term (current) use of insulin; Z79.891 Long term (current) use of opiate analgesic; W01.0XXA Fall on same level from slipping, tripping and stumbling without subsequent striking against object, initial encounter
CPT/HCPCS: 36415; 70450; 72125; 73090; 80053; 80306; 81000; 82010; 82805; 82962; 85025

== ENCOUNTER 2020-07-25 10:32 | Inpatient (IN) | payer MEDICARE ==
[2020-07-25] VITALS (12 sets, daily range): BP systolic 99–193; BP diastolic 12–153
[~2020-07-25] VITALS: Ht 152 cm; Wt 62.6 kg
[~2020-07-25 10:32] MED LIST changes: +ASPI-1238 PO; -ASPI-983 PO; -OXYC-465 PO; +OXYC-556 PO
--- NOTE | 2020-07-25 10:51 | ED General ---
General Stated Complaint: NAUSEA Source of Information: Patient Exam Limitations: No Limitations History of Present Illness Date Seen by Provider: Jul 25, 2020 Time Seen by Provider: 10:50 Initial Comments To ER by private vehicle and ambulatory to room 8 without assistance with reports of general malaise. She reports pain all over, nausea. She states her b lood sugar is high. She states that she has been taking her insulin but "it doesn't work". Timing/Duration: 1-2 Days Severity: Moderate Associated Systoms: Nausea/Vomiting, Shortness of Air Allergies and Home Medications Allergies Coded Allergies: ketorolac (Verified Allergy, Severe, ANAPHYLAXIS, PT TAKES ASA AT HOME, 03/06/19) ondansetron (Verified Allergy, Intermediate, RASH, 03/06/19) RASH/ HIVES scopolamine (Verified Allergy, Mild, Rash, 03/21/19) exenatide (Verified Allergy, Unknown, NAUSEA, 03/06/19) NON STOP VOMITING latex (Verified Allergy, Unknown, RASH, 03/06/19) metoclopramide (Verified Allergy, Unknown, RESTLESS LEGS, 03/06/19) erythromycin base (Verified Adverse Reaction, Unknown, 03/21/19) Home Medications Acetaminophen 325 Mg Capsule, 650 MG PO Q6H PRN for PAIN-MILD (1-4) OR TEMPATURE, (Reported) Apixaban 5 Mg Tablet, 5 MG PO BID, (Reported) Aspirin 81 Mg Tablet.dr, 81 MG PO DAILY, (Reported) Atorvastatin Calcium 20 Mg Tablet, 20 MG PO HS, (Reported) Diphenhydramine HCl 25 Mg Tablet, 25-50 MG PO Q6H PRN for ALLERGY SYMPTOMS, (Reported) Gabapentin 800 Mg Tablet, 1,600 MG PO HS, (Reported) TAKES 2 (800MG) TABLETS Gabapentin 800 Mg Tablet, 800 MG PO DAILY, (Reported) Glucagon,Human Recombinant 1 Mg/Kit Soln, 1 MG INJ UD PRN for HYPERGLYCEMIA, (Reported) Glycerin/Propylene Glycol 1 Each Droperette, 2 DROPS OU PRN PRN for DRY EYES, (Reported) Insulin Aspart 300 Units/3 Ml Solution, UNITS SC TIDAC, (Reported) USES PER SLIDING SCALE Insulin Detemir 100 Unit/1 Ml Insuln.pen, 15 UNIT SQ BID, (Reported) Melatonin 5 Mg Tablet, 5 MG PO HS, (Reported) Omeprazole 20 Mg Capsule.dr 20 MG PO DAILY, (Reported) Oxycodone HCl/Acetaminophen 1 Each Tablet, 1 EACH PO Q4H PRN for PAIN-SEVERE Prescribed by: GERARDO RITTER on 06/18/20 1047 Tramadol HCl 50 Mg Tablet, 50 MG PO Q6H PRN for PAIN-MODERATE (5-7), (Reported) Patient Home Medication List Home Medication List Reviewed: Yes Review of Systems Review of Systems Constitutional: see HPI EENTM: see HPI Respiratory: no symptoms reported Cardiovascular: no symptoms reported Gastrointestinal: nausea Genitourinary: no symptoms reported Musculoskeletal: no symptoms reported Skin: no symptoms reported Psychiatric/Neurological: No Symptoms Reported Hematologic/Lymphatic: No Symptoms Reported Immunological/Allergic: no symptoms reported Past Dojiblo-Cwmbuk-Hjedkx Hx Patient Social History Alcohol Beverage of Choice: Wine Drug of Choice: NARCOTIC ABUSE Type Used: Cigarettes Former Smoker, Quit: Nov 10, 2017 2nd Hand Smoke Exposure: No Recent Hopitalizations: No Immunizations Up To Date Tetanus Booster (TDap): Unknown PED Vaccines UTD: No Date of Pneumonia Vaccine: Nov 06, 2019 Date of Influenza Vaccine: Nov 22, 2019 Seasonal Allergies Seasonal Allergies: Yes Past Medical History Surgeries: Yes (LITHOTRIPSY;LUMBAR SURGERY X 4;BMT'S;EGD'S WITH ESOPHAGEAL DILATIONS;) Cardiac, Coronary Stent, Ear Surgery, Gallbladder, Orthopedic, Renal Respiratory: Yes Chronic Bronchitis, Sleep Apnea Currently Using CPAP: No Currently Using BIPAP: No Cardiac: Yes (DVT'S IN ARMS; CARDIAC STENT X 1; CAROTID DISEASE;LINQ DEVICE) Chronic Edema/Swelling, Coronary Artery Disease, Deep Vein Thrombosis, High Cholesterol, Hypertension, Palpitations Neurological: Yes (NEUROPATHY IN HANDS AND FEET) Headaches /Migraines, Neuropathy 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 Disorders: No 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 Sexually Transmitted Disease: No HIV/AIDS: No Genitourinary: Yes Bladder Infection, Kidney Stones, Renal Failure Gastrointestinal: Yes (GASTRITIS;ESOPH STRICTURE/DILATION;GASTROPARESIS-CHRONIC N/V/ABD PAIN;DAVID) Gastroesophageal Reflux, Diverticulosis, Esophagitis, Irritable Bowel Musculoskeletal: Yes (CHRONIC GENERALIZED PAIN;CHRONIC BILAT SHOULDER PAIN;CHRONIC NECK PAIN ) Degenerate Disk Disease, Fibromyalgia, Chronic Back Pain Endocrine: Yes (NON-COMPLAINT;MULTIPLE EPISODES OF DKA-EASILY CONTROLLED ON INSULIN IN HOSP) Diabetes, Insulin dep HEENT: Yes (GLASSES; S/P BMT'S) Chronic Ear Infection Loss of Vision: Bilateral Hearing Impairment: Hard of Hearing Cancer: No Psychosocial: Yes Anxiety Integumentary: Yes Psoriasis Blood Disorders: No Adverse Reaction/Blood Tranf: No Family Medical History Cancer of mouth 19 FATHER ( of esophogeal cancer.) Cardiovascular disease 19 MOTHER G8 BROTHER Completed stroke 19 FATHER G8 BROTHER Diabetes mellitus G8 BROTHER FH: lung cancer 19 MOTHER Hypertension 19 FATHER Kidney disease 19 FATHER Myocardial infarction 19 MOTHER G8 BROTHER Respiratory disorder No Family History of: AIDS CAD Over 55 Years Old, CVA, Diabetes, GI Disease, Renal Disease PSH: -LINQ DEVICE PLACED 11/09/19 FOR REPORTED PALPITATIONS X 6 MONTHS, SINCE PERCOCET WAS DC'D -MULTIPLE CARDIAC CATHS--STENT X 1 TO LAD 07/13/15. LAST CATH 01/18/19--NO INTERVENTION -LUMBAR SPINE FUSION X 3--12/2002, 04/2007, AND 05/2007 -LUMBAR DISCECTOMY 10/2000--? LAMINECTOMY? -CERVICAL SPINE FUSION 11/2006 -CHOLECYSTECTOMY 1983 -BMT'S -LITHOTRIPSY AND RIGHT URETERAL STENT -EGD'S WITH ESOPHAGEAL DILATIONS -COLONOSCOPIES, LAST ONE 03/08/19 -PORT RIGHT CHEST -LEFT SHOULDER ROTATOR CUFF REPAIR 05/01/20--DR. PALACIOS -CONTINUOUS GLUCOSE MONITOR PRESENT 06/25/20--LLQ OF ABDOMEN Physical Exam Vital Signs Vital Signs - First Documented 07/25/20 10:45 Temp 37.1 Pulse 83 Resp 16 B/P (MAP) 196/98 (130) Pulse Ox 97 O2 Delivery Room Air Capillary Refill : Height, Weight, BMI Height: 5'1.00" Weight: 122lbs. 1.0oz. 55.735110fc; 28.00 BMI Method:Estimated General Appearance: No Apparent Distress, WD/WN Eyes: Bilateral Eye Normal Inspection, Bilateral Eye PERRL, Bilateral Eye EOMI Neck: Full Range of Motion, Normal Inspection Respiratory: Normal Breath Sounds, No Accessory Muscle Use, No Respiratory Distress Gastrointestinal: Normal Bowel Sounds, Non Tender, Soft Extremity: Normal Capillary Refill, Normal Inspection Neurologic/Psychiatric: Alert, Oriented x3 Skin: Normal Color, Warm/Dry Procedures/Interventions Date of ETT Placement: Dec 30, 2019 Time of ETT Placement: 0750 Progress/Results/Core Measures Suspected Sepsis SIRS Temperature: Pulse: Respiratory Rate: Laboratory Tests 07/25/20 11:05: White Blood Count 9.1 Blood Pressure / Mean: Laboratory Tests 07/25/20 11:05: Creatinine 1.56H, Platelet Count 197, Total Bilirubin 0.5 Results/Orders Lab Results Laboratory Tests Test 07/25/20 10:46 07/25/20 11:05 07/25/20 11:40 07/25/20 12:07 Range/Units Blood Gas Puncture Site LT RAD Blood Gas Patient Temperature 37.1 Arterial Blood pH 7.39 7.37-7.43 Arterial Blood Partial Pressure CO2 38 35-45 MMHG Arterial Blood Partial Pressure O2 91 79-93 MMHG Arterial Blood HCO3 23 23-27 MMOL/L Arterial Blood Total CO2 24.0 21.0-31.0 MMOL/L Arterial Blood Oxygen Saturation 97 94-100 % Arterial Blood Base Excess -1.4 -2.5-2.5 MMOL/L Antonio Test YES-POS Blood Gas Ventilator Setting NO Blood Gas Inspired Oxygen ROOM AIR White Blood Count 9.1 4.3-11.0 10^3/uL Red Blood Count 4.50 4.35-5.85 10^6/uL Hemoglobin 13.3 11.5-16.0 G/DL Hematocrit 38 35-52 % Mean Corpuscular Volume 84 80-99 FL Mean Corpuscular Hemoglobin 30 25-34 PG Mean Corpuscular Hemoglobin Concent 35 32-36 G/DL Red Cell Distribution Width 13.7 10.0-14.5 % Platelet Count 197 130-400 10^3/uL Mean Platelet Volume 10.6 H 7.4-10.4 FL Neutrophils (%) (Auto) 63 42-75 % Lymphocytes (%) (Auto) 27 12-44 % Monocytes (%) (Auto) 4 0-12 % Eosinophils (%) (Auto) 5 0-10 % Basophils (%) (Auto) 1 0-10 % Neutrophils # (Auto) 5.7 1.8-7.8 X 10^3 Lymphocytes # (Auto) 2.5 1.0-4.0 X 10^3 Monocytes # (Auto) 0.4 0.0-1.0 X 10^3 Eosinophils # (Auto) 0.4 H 0.0-0.3 10^3/uL Basophils # (Auto) 0.1 0.0-0.1 10^3/uL Sodium Level 127 L 135-145 MMOL/L Potassium Level 4.5 3.6-5.0 MMOL/L Chloride Level 96 L 98-107 MMOL/L Carbon Dioxide Level 18 L 21-32 MMOL/L Anion Gap 13 5-14 MMOL/L Blood Urea Nitrogen 20 H 7-18 MG/DL Creatinine 1.56 H 0.60-1.30 MG/DL Estimat Glomerular Filtration Rate 34 BUN/Creatinine Ratio 13 Glucose Level 859 *H 70-105 MG/DL Glucometer > 600 *H > 600 *H 70-110 MG/DL Calcium Level 9.1 8.5-10.1 MG/DL Corrected Calcium 9.0 8.5-10.1 MG/DL Total Bilirubin 0.5 0.1-1.0 MG/DL Aspartate Amino Transf (AST/SGOT) 10 5-34 U/L Alanine Aminotransferase (ALT/SGPT) 9 0-55 U/L Alkaline Phosphatase 135 40-136 U/L Troponin I < 0.028 <0.028 NG/ML Total Protein 7.4 6.4-8.2 GM/DL Albumin 4.1 3.2-4.5 GM/DL Beta-Hydroxybutyrate (Chem panel) 0.79 H 0.00-0.27 MMOL/L Urine Color YELLOW Urine Clarity CLEAR Urine pH 7.0 5-9 Urine Specific [place] 1.010 L 1.016-1.022 Urine Protein 3+ H NEGATIVE Urine Glucose (UA) 3+ H NEGATIVE Urine Ketones NEGATIVE NEGATIVE Urine Nitrite NEGATIVE NEGATIVE Urine Bilirubin NEGATIVE NEGATIVE Urine Urobilinogen 0.2 < = 1.0 MG/DL Urine Leukocyte Esterase NEGATIVE NEGATIVE Urine RBC (Auto) TRACE-I NEGATIVE Urine RBC 0-2 /HPF Urine WBC RARE /HPF Urine Squamous Epithelial Cells RARE /HPF Urine Crystals NONE /LPF Urine Amorphous Sediment RARE ANITHA URATES H /LPF Urine Bacteria TRACE /HPF Urine Casts NONE /LPF Urine Mucus NEGATIVE /LPF Urine Culture Indicated NO Urine Opiates Screen NEGATIVE NEGATIVE Urine Oxycodone Screen NEGATIVE NEGATIVE Urine Methadone Screen NEGATIVE NEGATIVE Urine Propoxyphene Screen NEGATIVE NEGATIVE Urine Barbiturates Screen NEGATIVE NEGATIVE Ur Tricyclic Antidepressants Screen NEGATIVE NEGATIVE Urine Phencyclidine Screen NEGATIVE NEGATIVE Urine Amphetamines Screen NEGATIVE NEGATIVE Urine Methamphetamines Screen NEGATIVE NEGATIVE Urine Benzodiazepines Screen NEGATIVE NEGATIVE Urine Cocaine Screen NEGATIVE NEGATIVE Urine Cannabinoids Screen NEGATIVE NEGATIVE My Orders Orders - JR MARIE APRN Cbc With Automated Diff (07/25/20 10:37) Comprehensive Metabolic Panel (07/25/20 10:37) Beta Hydroxybutyrate (07/25/20 10:37) Chest 1 View, Ap/Pa Only (07/25/20 10:37) Lactated Ringers (Lr 1000 Ml Iv Solution (07/25/20 10:45) Arterial Blood Gas (07/25/20 10:48) Ua Culture If Indicated (07/25/20 10:48) Drug Screen Stat (Urine) (07/25/20 10:48) Hemoglobin A1c (07/25/20 10:48) Troponin I (07/25/20 10:51) Ekg Tracing (07/25/20 10:51) Accucheck Stat ONCE (07/25/20 10:58) Insulin (Regular) Human (Novolin R (Per (07/25/20 11:15) Lorazepam Injection (Ativan Injection) (07/25/20 12:00) Ct Head Wo (07/25/20 11:57) Lorazepam Injection (Ativan Injection) (07/25/20 11:54) Lactated Ringers (Lr 1000 Ml Iv Solution (07/25/20 13:00) Labetalol Injection (Normodyne Injection (07/25/20 13:15) Insulin Regular Drip (Myxredlin 100 Unit (07/25/20 13:15) Accucheck Stat ONCE (07/25/20 13:14) Medications Given in ED Current Medications Medications Dose Ordered Sig/Jackie Route Start Time Stop Time Status Last Admin Dose Admin Insulin Human Regular 10 unit ONCE ONCE IV 07/25/20 11:15 07/25/20 11:16 DC 07/25/20 11:17 10 UNIT Lorazepam 2 mg ONCE ONCE IVP 07/25/20 12:00 07/25/20 12:01 DC 07/25/20 12:00 2 MG Vital Signs/I&O 07/25/20 10:45 Temp 37.1 Pulse 83 Resp 16 B/P (MAP) 196/98 (130) Pulse Ox 97 O2 Delivery Room Air Capillary Refill : Departure Communication (Admissions) Time/Spoke to Admitting Phy: 13:16 Dr Yi agrees to admit [id number] activity noted lasting about 2 minutes, full-body myoclonic movements, head deviated to the right. 2 mg lorazepam ordered. 1315-still hypertensive at 193/140 HR 90s, o2 98% room air, no recurrent seizures. 2nd liter LR infusing. Impression Primary Impression: Diabetic hyperosmolar non-ketotic state Disposition: ADMITTED INPATIENT Condition: Stable Admissions Decision to Admit Reason: Admit from ER (General) Decision to Admit/Date: Jul 25, 2020 Time/Decision to Admit Time: 12:09 Departure-Patient Inst. Referrals: CINDY CALABRESE DO (PCP/Family) Primary Care Physician JR MARIE APRN Jul 25, 2020 10:51
[2020-07-25 10:56] LABS: ABG BASE EXCESS -1.4 MMOL/L (-2.5-2.5); ABG OXYGEN SATURATION 97 % (94-100); ABG PCO2 38 MMHG (35-45); ABG PH 7.39 (7.37-7.43); ABG PO2 91 MMHG (79-93)
[2020-07-25 10:57] LABS: ALLENS TEST YES-POS; INSPIRED O2 ROOM AIR; PATIENT TEMP 37.1; VENTILATOR NO
[2020-07-25] MEDS: LACTATED RINGERS 1,000 ML IV SCH ×2 (11:03→13:02)
--- NOTE | 2020-07-25 11:06 | NUR ---
FINGER STICK READ HI. LAB IN ROOM DRAWING BLOOD AT THIS TIME.
[2020-07-25] MEDS ORDERED: inSUlin (REGULAR) HUMAN 1 UNIT/0.01 ML (CHARGE PER UNIT) IV ONE (11:15)
[2020-07-25 11:21] LABS: BASOPHILS # (AUTO) 0.1 10^3/uL (0.0-0.1); BASOPHILS % (AUTO) 1 % (0-10); EOSINOPHILS # (AUTO) 0.4 10^3/uL (0.0-0.3); EOSINOPHILS % (AUTO) 5 % (0-10); HEMATOCRIT 38 % (35-52); HEMOGLOBIN 13.3 G/DL (11.5-16.0); LYMPHOCYTES # (AUTO) 2.5 X 10^3 (1.0-4.0); LYMPHOCYTES % (AUTO) 27 % (12-44); MEAN CORPUSCULAR HEMOGLOBIN 30 PG (25-34); MEAN CORPUSCULAR HGB CONC 35 G/DL (32-36); MEAN CORPUSCULAR VOLUME 84 FL (80-99); MEAN PLATELET VOLUME 10.6 FL (7.4-10.4); MONOCYTES # (AUTO) 0.4 X 10^3 (0.0-1.0); MONOCYTES % (AUTO) 4 % (0-12); NEUTROPHILS # (AUTO) 5.7 X 10^3 (1.8-7.8); NEUTROPHILS % (AUTO) 63 % (42-75); PLATELET COUNT 197 10^3/uL (130-400); WHITE BLOOD COUNT 9.1 10^3/uL (4.3-11.0)
--- NOTE | 2020-07-25 11:31 | Diagnostic Imaging Report ---
EXAMINATION: Portable erect AP chest at 11:25 a.m. INDICATION: Nausea, malaise. FINDINGS: This exam is less than optimal as the patient is rotated. The heart size is within normal limits and stable when compared to 07/01/2020. The loop recorder device overlying the left thorax seen previously is again evident and no different. The lungs remain generally clear. There are still a few crowded bronchovascular markings in the right infrahilar region but there is no evidence for pneumonia, failure, or a pleural effusion. The mediastinum is not widened. The osseous structures are intact. The right-sided Port-A-Cath and the orthopedic plate and screw fixation device overlying the lower cervical spine and the orthopedic screw overlying the left humeral head seen previously are again evident and no different. IMPRESSION: Stable chest. There has been no adverse change since the prior exam. Dictated by: Dictated on workstation # [id number]
[2020-07-25 11:32] LABS: ALBUMIN 4.1 GM/DL (3.2-4.5); CHLORIDE 96 MMOL/L (98-107); POTASSIUM 4.5 MMOL/L (3.6-5.0); SODIUM 127 MMOL/L (135-145)
[2020-07-25 11:34] LABS: CALCIUM 9.1 MG/DL (8.5-10.1)
[2020-07-25 11:35] LABS: TOTAL PROTEIN 7.4 GM/DL (6.4-8.2)
[2020-07-25 11:36] LABS: CARBON DIOXIDE 18 MMOL/L (21-32)
[2020-07-25 11:37] LABS: BILIRUBIN,TOTAL 0.5 MG/DL (0.1-1.0)
[2020-07-25 11:38] LABS: ALKALINE PHOSPHATASE 135 U/L (40-136); CREATININE SERUM 1.56 MG/DL (0.60-1.30); GFR ESTIMATED 34
[2020-07-25 11:39] LABS: BUN/CREATININE RATIO 13
[2020-07-25 11:41] LABS: ALANINE AMINOTRANSFERASE 9 U/L (0-55)
[2020-07-25 11:48] LABS: GLUCOSE 859 MG/DL (70-105)
[2020-07-25] MEDS ORDERED: LORazepam INJ 2 MG/ML (ATIVAN) VIAL ONE (11:54)
--- NOTE | 2020-07-25 11:58 | NUR ---
Pt noted to be having seizure-like activity. PBates notified, verbal orders received for 2mg Ativan IVP. Seizure activity lasting approx 3 minutes.
[2020-07-25] MEDS ORDERED: LORazepam INJ 2 MG/ML (ATIVAN) VIAL IVP ONE (12:00)
[2020-07-25 12:15] LABS: BILIRUBIN,URINE NEGATIVE (NEGATIVE); CLARITY,URINE CLEAR; COLOR,URINE YELLOW; GLUCOSE, URINE (UA) 3+ (NEGATIVE); KETONES,URINE NEGATIVE (NEGATIVE); LEUKOCYTE ESTERASE ,URINE NEGATIVE (NEGATIVE); NITRITE,URINE NEGATIVE (NEGATIVE); PROTEIN,URINE 3+ (NEGATIVE)
[2020-07-25 12:29] LABS: RBC,URINE 0-2 /HPF
[2020-07-25 12:30] LABS: AMORPHOUS SEDIMENT,UR RARE AMOR URATES /LPF; BACTERIA,URINE TRACE /HPF; SQUAMOUS EPITHELIAL CELL,UR RARE /HPF; WBC,URINE RARE /HPF
[2020-07-25 12:32] LABS: AMPHETAMINE SCREEN, URINE NEGATIVE (NEGATIVE); BARBITURATE SCREEN URINE NEGATIVE (NEGATIVE); BENZODIAZEPINES SCREEN URINE NEGATIVE (NEGATIVE); CANNABINOID SCREEN, URINE NEGATIVE (NEGATIVE); COCAINE SCREEN URINE NEGATIVE (NEGATIVE); METHADONE STAT NEGATIVE (NEGATIVE); METHAMPHETAMINE SCREEN URINE S NEGATIVE (NEGATIVE); OPIATE SCREEN URINE NEGATIVE (NEGATIVE); OXYCODONE STAT NEGATIVE (NEGATIVE); PROPOXYPHENE STAT NEGATIVE (NEGATIVE); TRICYCLIC ANTIDEPRESSANTS SCRE NEGATIVE (NEGATIVE)
[2020-07-25] MEDS ORDERED: LACTATED RINGERS 1,000 ML IV SCH (13:00)
--- NOTE | 2020-07-25 13:03 | Diagnostic Imaging Report ---
EXAMINATION: CT head without contrast. TECHNIQUE: Multiple contiguous axial images were obtained through the brain without the use of intravenous contrast. All CT scans use one or more of the following dose optimizing techniques: automated exposure control, MA and/or KvP adjustment based on a patient size and exam type, or iterative reconstruction. HISTORY: Seizure. COMPARISON: 07/22/2020. FINDINGS: No large acute territorial ischemia, mass, or hemorrhage. Old lacunar infarct is seen in the right basal ganglia. No midline shift or mass effect. Decreased attenuation is seen in the periventricular and subcortical white matter. The ventricles and cortical sulci are prominent. The basilar cisterns are patent and unremarkable. The orbits are normal. Paranasal sinuses are normal. Mastoid air cells are clear. No soft tissue abnormality is seen. No osseous lesions or fractures are seen. IMPRESSION: 1. No large acute territorial ischemia, mass, or hemorrhage. 2. Old lacunar infarct is again seen in the right basal ganglia. 3. Generalized parenchymal volume loss with chronic microvascular disease. Dictated by: Dictated on workstation # [id number]
--- NOTE | 2020-07-25 13:04 | NUR ---
JR NOTIFIED OF CONTINUING HIGH BP. 193/146.
[2020-07-25] MEDS ORDERED: LABETALOL HCL 20 MG/4 ML VIAL IV ONE (13:15)
--- NOTE | 2020-07-25 13:30 | NUR ---
JR STATES INSULIN DRIP CAN BE STARTED WHEN IN ICU.
--- NOTE | 2020-07-25 13:36 | NUR ---
ATTEMPT TO CALL REPORT TO ICU NURSE.
[2020-07-25] MEDS ORDERED: NS IV 1000 ML 1,000 ML IV SCH (14:53)
[2020-07-25] MEDS ORDERED: LORazepam INJ 2 MG/ML (ATIVAN) VIAL IVP PRN (15:00)
[2020-07-25] MEDS ORDERED: 1/2 NS IV SOLUTION 1,000 ML IV ONE (15:00)
[2020-07-25] MEDS ORDERED: POTASSIUM CL 10MEQ/50ML IVPB 50 ML IV ONE (15:00)
[2020-07-25] MEDS: POTASSIUM CL 10MEQ/50ML IVPB 50 ML IV SCH ×4 (15:09→22:37)
[2020-07-25] MEDS: 1/2 NS IV SOLUTION 1,000 ML IV SCH ×3 (15:09→19:28)
--- NOTE | 2020-07-25 16:10 | Pulmonary Consultation ---
History of Present Illness History of Present Illness Date Seen by Provider: Jul 25, 2020 Time Seen by Provider: 16:10 Date of Admission History of Present Illness 60yo presented to ED secondary to general malaise and worsening nausea. She was found to be in HHNK. while in the ED she had a questionable seizure and was given 2mg of Ativan. She is currently lethargic however moving all extremities. She is currently on insulin gtt. I am consulted for ICU management. Allergies and Home Medications Allergies Coded Allergies: ketorolac (Verified Allergy, Severe, ANAPHYLAXIS, PT TAKES ASA AT HOME, 03/06/19) ondansetron (Verified Allergy, Intermediate, RASH, 03/06/19) RASH/ HIVES scopolamine (Verified Allergy, Mild, Rash, 03/21/19) exenatide (Verified Allergy, Unknown, NAUSEA, 03/06/19) NON STOP VOMITING latex (Verified Allergy, Unknown, RASH, 03/06/19) metoclopramide (Verified Allergy, Unknown, RESTLESS LEGS, 03/06/19) erythromycin base (Verified Adverse Reaction, Unknown, 03/21/19) Home Medications Acetaminophen 325 Mg Capsule, 650 MG PO Q6H PRN for PAIN-MILD (1-4) OR TEMPATURE, (Reported) Apixaban 5 Mg Tablet, 5 MG PO BID, (Reported) Aspirin 81 Mg Tablet.dr, 81 MG PO DAILY, (Reported) Atorvastatin Calcium 20 Mg Tablet, 20 MG PO HS, (Reported) Diphenhydramine HCl 25 Mg Tablet, 25-50 MG PO Q6H PRN for ALLERGY SYMPTOMS, (Reported) Gabapentin 800 Mg Tablet, 1,600 MG PO HS, (Reported) TAKES 2 (800MG) TABLETS Gabapentin 800 Mg Tablet, 800 MG PO DAILY, (Reported) Glucagon,Human Recombinant 1 Mg/Kit Soln, 1 MG INJ UD PRN for HYPERGLYCEMIA, (Reported) Glycerin/Propylene Glycol 1 Each Droperette, 2 DROPS OU PRN PRN for DRY EYES, (Reported) Insulin Aspart 300 Units/3 Ml Solution, UNITS SC TIDAC, (Reported) USES PER SLIDING SCALE Insulin Detemir 100 Unit/1 Ml Insuln.pen, 15 UNIT SQ BID, (Reported) Melatonin 5 Mg Tablet, 5 MG PO HS, (Reported) Omeprazole 20 Mg Capsule.dr, 20 MG PO DAILY, (Reported) Oxycodone HCl/Acetaminophen 1 Each Tablet, 1 EACH PO Q4H PRN for PAIN-SEVERE Prescribed by: GERARDO RITTER on 06/18/20 1047 Tramadol HCl 50 Mg Tablet, 50 MG PO Q6H PRN for PAIN-MODERATE (5-7), (Reported) Past Bvsguum-Yzvaga-Pmjihx Hx Patient Social History Alcohol Beverage of Choice: Wine Drug of Choice: NARCOTIC ABUSE Type Used: Cigarettes Former Smoker, Quit: Nov 10, 2017 2nd Hand Smoke Exposure: No Recent Foreign Travel: No Contact w/Someone Who Travel: No Recent Infectious Disease Expo: No Recent Hopitalizations: No Immunizations Up To Date Tetanus Booster (TDap): Unknown PED Vaccines UTD: No Date of Pneumonia Vaccine: Nov 06, 2019 Date of Influenza Vaccine: Nov 22, 2019 Seasonal Allergies Seasonal Allergies: Yes Past Medical History Surgeries: Yes (LITHOTRIPSY;LUMBAR SURGERY X 4;BMT'S;EGD'S WITH ESOPHAGEAL DILATIONS;) Cardiac, Coronary Stent, Ear Surgery, Gallbladder, Orthopedic, Renal Respiratory: Yes Chronic Bronchitis, Sleep Apnea Currently Using CPAP: No Currently Using BIPAP: No Cardiac: Yes (DVT'S IN ARMS; CARDIAC STENT X 1; CAROTID DISEASE;LINQ DEVICE) Chronic Edema/Swelling, Coronary Artery Disease, Deep Vein Thrombosis, High Cholesterol, Hypertension, Palpitations Neurological: Yes (NEUROPATHY IN HANDS AND FEET) Headaches /Migraines, Neuropathy 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 Disorders: No 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 Sexually Transmitted Disease: No HIV/AIDS: No Genitourinary: Yes Bladder Infection, Kidney Stones, Renal Failure Gastrointestinal: Yes (GASTRITIS;ESOPH STRICTURE/DILATION;GASTROPARESIS-CHRONIC N/V/ABD PAIN;DAVID) Gastroesophageal Reflux, Diverticulosis, Esophagitis, Irritable Bowel Musculoskeletal: Yes (CHRONIC GENERALIZED PAIN;CHRONIC BILAT SHOULDER PAIN;CHRONIC NECK PAIN ) Degenerate Disk Disease, Fibromyalgia, Chronic Back Pain Endocrine: Yes (NON-COMPLAINT;MULTIPLE EPISODES OF DKA-EASILY CONTROLLED ON INSULIN IN HOSP) Diabetes, Insulin dep HEENT: Yes (GLASSES; S/P BMT'S) Chronic Ear Infection Loss of Vision: Bilateral Hearing Impairment: Hard of Hearing Cancer: No Psychosocial: Yes Anxiety Integumentary: Yes Psoriasis Blood Disorders: No Adverse Reaction/Blood Tranf: No Family Medical History Cancer of mouth 19 FATHER ( of esophogeal cancer.) Cardiovascular disease 19 MOTHER G8 BROTHER Completed stroke 19 FATHER G8 BROTHER Diabetes mellitus G8 BROTHER FH: lung cancer 19 MOTHER Hypertension 19 FATHER Kidney disease 19 FATHER Myocardial infarction 19 MOTHER G8 BROTHER Respiratory disorder No Family History of: AIDS CAD Over 55 Years Old, CVA, Diabetes, GI Disease, Renal Disease PSH: -LINQ DEVICE PLACED 11/09/19 FOR REPORTED PALPITATIONS X 6 MONTHS, SINCE PERCOCET WAS DC'D -MULTIPLE CARDIAC CATHS--STENT X 1 TO LAD 07/13/15. LAST CATH 01/18/19--NO INTERVENTION -LUMBAR SPINE FUSION X 3--12/2002, 04/2007, AND 05/2007 -LUMBAR DISCECTOMY 10/2000--? LAMINECTOMY? -CERVICAL SPINE FUSION 11/2006 -CHOLECYSTECTOMY 1984 -BMT'S -LITHOTRIPSY AND RIGHT URETERAL STENT -EGD'S WITH ESOPHAGEAL DILATIONS -COLONOSCOPIES, LAST ONE 03/08/19 -PORT RIGHT CHEST -LEFT SHOULDER ROTATOR CUFF REPAIR 05/01/20--DR. PALACIOS -CONTINUOUS GLUCOSE MONITOR PRESENT 06/25/20--LLQ OF ABDOMEN Review of Systems Time Seen by Provider: 05:41 Sepsis Event Evaluation Height, Weight, BMI Height: 5'1.00" Weight: 122lbs. 1.0oz. 55.409528md; 25.00 BMI Method:Estimated Exam Exam Vital Signs Date Time Temp Pulse Resp B/P (MAP) Pulse Ox O2 Delivery O2 Flow Rate FiO2 07/25/20 15:00 88 30 180/107 (131) 97 Room Air 07/25/20 14:52 85 07/25/20 14:31 87 16 188/98 97 Room Air 07/25/20 10:45 37.1 83 16 196/98 (130) 97 Room Air Height & Weight Height: 5'1.00" Weight: 122lbs. 1.0oz. 55.957843yw; 25.00 BMI Method:Estimated General Appearance: WD/WN, Mild Distress Neck: Full Range of Motion, Normal Inspection Respiratory: Normal Breath Sounds, No Accessory Muscle Use, No Respiratory Distress Capillary Refill: Less Than 3 Seconds Extremity: Normal Capillary Refill, Normal Inspection Neurologic/Psychiatric: Depressed Affect, Disoriented Skin: Normal Color, Warm/Dry Lymphatic: No Adenopathy Results Lab Laboratory Tests 07/25/20 11:05 Assessment/Plan Assessment/Plan HHNK -Insulin gtt -IVF monitor -I discussed with EICU doc and they will monitor through the night. Seizure -Unknown hx -Ativan PRN -Monitor and seizure precautions -s/p 2mg of Ativan in ED KIM FUNEZ DO Jul 25, 2020 16:10
[2020-07-25 16:49] LABS: BASOPHILS # (AUTO) 0.1 10^3/uL (0.0-0.1); BASOPHILS % (AUTO) 1 % (0-10); EOSINOPHILS # (AUTO) 0.3 10^3/uL (0.0-0.3); EOSINOPHILS % (AUTO) 2 % (0-10); HEMATOCRIT 35 % (35-52); HEMOGLOBIN 12.3 G/DL (11.5-16.0); LYMPHOCYTES # (AUTO) 3.7 X 10^3 (1.0-4.0); LYMPHOCYTES % (AUTO) 29 % (12-44); MEAN CORPUSCULAR HEMOGLOBIN 29 PG (25-34); MEAN CORPUSCULAR HGB CONC 35 G/DL (32-36); MEAN CORPUSCULAR VOLUME 84 FL (80-99); MEAN PLATELET VOLUME 10.7 FL (7.4-10.4); MONOCYTES # (AUTO) 0.5 X 10^3 (0.0-1.0); MONOCYTES % (AUTO) 4 % (0-12); NEUTROPHILS # (AUTO) 8.5 X 10^3 (1.8-7.8); NEUTROPHILS % (AUTO) 65 % (42-75); PLATELET COUNT 228 10^3/uL (130-400)
[2020-07-25 17:12] LABS: ALBUMIN 3.7 GM/DL (3.2-4.5)
[2020-07-25 17:13] LABS: POTASSIUM 3.6 MMOL/L (3.6-5.0)
[2020-07-25 17:14] LABS: CALCIUM 9.1 MG/DL (8.5-10.1)
[2020-07-25 17:15] LABS: TOTAL PROTEIN 6.7 GM/DL (6.4-8.2)
[2020-07-25 17:17] LABS: BILIRUBIN,TOTAL 0.3 MG/DL (0.1-1.0)
[2020-07-25 17:19] LABS: CREATININE SERUM 1.06 MG/DL (0.60-1.30)
--- NOTE | 2020-07-25 18:15 | History & Physical-Hospitalist ---
History of Present Illness HPI/Chief Complaint Itzel Urbano is a 60 year old female with history of insulin dependent diabetes mellitus who presented with malaise. She was found to have elevated blood sugars. She subsequently had seizure-like activity in the ER. She was given Ativan and this resolved. She was started on an insulin drip and admitted to the ICU. Upon my examination, she is unresponsive. She is unable to provide any additional history. Source: RN/MD Exam Limitations: clinical condition Date Seen 07/25/20 Time Seen by a Provider: 17:00 Attending Physician Juan David Bradshaw MD PCP Gerardo Greenwood DO Referring Physician Date of Admission Jul 25, 2020 at 13:05 Home Medications & Allergies Home Medications Reviewed patient Home Medication Reconciliation performed by pharmacy medication reconciliations crime scene technician and/or nursing. Patients Allergies have been reviewed. Allergies Allergies Coded Allergies ketorolac (Verified Allergy, Severe, ANAPHYLAXIS, PT TAKES ASA AT HOME, 03/06/19) ondansetron (Verified Allergy, Intermediate, RASH, 03/06/19) RASH/ HIVES scopolamine (Verified Allergy, Mild, Rash, 03/21/19) exenatide (Verified Allergy, Unknown, NAUSEA, 03/06/19) NON STOP VOMITING latex (Verified Allergy, Unknown, RASH, 03/06/19) metoclopramide (Verified Allergy, Unknown, RESTLESS LEGS, 03/06/19) erythromycin base (Verified Adverse Reaction, Unknown, 03/21/19) Past Crwqsjv-Wzdofh-Tjikty Hx Past Med/Social Hx: Reviewed Nursing Past Med/Soc Hx Patient Social History Alcohol Beverage of Choice: Wine Drug of Choice: NARCOTIC ABUSE Former Smoker, Quit: Nov 10, 2017 Type Used: Cigarettes 2nd Hand Smoke Exposure: No Recent Foreign Travel: No Contact w/other who traveled: No Recent Hopitalizations: No Recent Infectious Disease Expo: No Immunizations Up To Date Tetanus Booster (TDap): Unknown Pediatric: No Date of Pneumonia Vaccine: Nov 06, 2019 Date of Influenza Vaccine: Nov 22, 2019 Seasonal Allergies Seasonal Allergies: Yes Past Medical History Surgeries: Cardiac, Coronary Stent, Ear Surgery, Gallbladder, Orthopedic, Renal Respiratory: Asthma Currently Using CPAP: No Currently Using BIPAP: No Cardiac: Chronic Edema/Swelling, Coronary Artery Disease, Deep Vein Thrombosis, High Cholesterol, Hypertension, Palpitations Neurological: Headaches /Migraines, Neuropathy 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: No Sexually Transmitted Disease: No HIV/AIDS: No 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 Disorders: Denies Menopausal Genitourinary: Bladder Infection, Kidney Stones, Renal Failure Gastrointestinal: Gastroesophageal Reflux, Diverticulosis, Esophagitis, Irritable Bowel Musculoskeletal: Degenerate Disk Disease, Fibromyalgia, Chronic Back Pain Endocrine: Diabetes, Insulin dep HEENT: Chronic Ear Infection Loss of Vision: Bilateral Hearing Impairment: Hard of Hearing Psychosocial: Anxiety Skin/Integumentary: Psoriasis History of Blood Disorders: No Adverse Reaction to Blood Green: No Family History Cancer of mouth 19 FATHER ( of esophogeal cancer.) Cardiovascular disease 19 MOTHER G8 BROTHER Completed stroke 19 FATHER G8 BROTHER Diabetes mellitus G8 BROTHER FH: lung cancer 19 MOTHER Hypertension 19 FATHER Kidney disease 19 FATHER Myocardial infarction 19 MOTHER G8 BROTHER Respiratory disorder No Family History of: AIDS CAD Over 55 Years Old, CVA, Diabetes, GI Disease, Renal Disease PSH: -LINQ DEVICE PLACED 11/09/19 FOR REPORTED PALPITATIONS X 6 MONTHS, SINCE PERCOCET WAS DC'D -MULTIPLE CARDIAC CATHS--STENT X 1 TO LAD 07/13/15. LAST CATH 01/18/19--NO INTERVENTION -LUMBAR SPINE FUSION X 3--12/2002, 04/2007, AND 05/2007 -LUMBAR DISCECTOMY 10/2000--? LAMINECTOMY? -CERVICAL SPINE FUSION 11/2006 -CHOLECYSTECTOMY 1984 -BMT'S -LITHOTRIPSY AND RIGHT URETERAL STENT -EGD'S WITH ESOPHAGEAL DILATIONS -COLONOSCOPIES, LAST ONE 03/08/19 -PORT RIGHT CHEST -LEFT SHOULDER ROTATOR CUFF REPAIR 05/01/20--DR. PALACIOS -CONTINUOUS GLUCOSE MONITOR PRESENT 06/25/20--LLQ OF ABDOMEN Review of Systems ROS-Unable to Obtain: unresponsive Constitutional: see HPI Physical Exam Physical Exam Vital Signs Vital Signs - First Documented 07/25/20 10:45 Temp 37.1 Pulse 83 Resp 16 B/P (MAP) 196/98 (130) Pulse Ox 97 O2 Delivery Room Air Capillary Refill : Less Than 3 Seconds Height, Weight, BMI Height: 5'1.00" Weight: 122lbs. 1.0oz. 55.386312bs; 25.00 BMI Method:Estimated General Appearance: No Apparent Distress, Chronically ill, Other (unresponsive) Neck: Normal Inspection, Supple Respiratory: Lungs Clear, Normal Breath Sounds, No Respiratory Distress Cardiovascular: No Edema, No Murmur, Tachycardia (regular rhythm) Gastrointestinal: Normal Bowel Sounds, Soft Extremity: Normal Inspection, No Pedal Edema Neurologic/Psychiatric: Other (obtunded, unresponsive) Skin: Normal Color, Warm/Dry Results Results/Procedures Labs Laboratory Tests 07/25/20 11:05 07/25/20 15:07 07/25/20 15:50 07/26/20 02:59 07/26/20 05:35 07/26/20 11:09 Patient resulted labs reviewed. Imaging: Reviewed Imaging Report Assessment/Plan Admission Diagnosis Type 2 diabetes mellitus with hyperosmolar hyperglycemic state Admission Status: Inpatient Order (span 2 midnights) Reason for Inpatient Admission: Insulin drip Assessment and Plan T2DM with HHS LANE Seizure Hyponatremia Metabolic acidosis -Blood sugar >800 on arrival -Creatinine elevated -Beta hydroxybutyrate mildly increased -Started on insulin gtt, non-DKA protocol -IV fluids -Ativan as needed for seizures DVT Prophylaxis: Lovenox Diagnosis/Problems Diagnosis/Problems (1) Type 2 diabetes mellitus Status: Acute Qualifiers: Diabetes mellitus 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
[2020-07-25] MEDS: D5 1/2 NS 1000 ML IV SOLUTION 1,000 ML IV SCH (18:23)
[2020-07-25] MEDS: hydrALAZINE (APESOLINE) 20 MG/ML VIAL IV PRN (18:23)
--- NOTE | 2020-07-25 19:30 | NUR ---
Patient noted to be very lethargic, patient does withdraw from pain and does follow simple commands such as squeezing hands. Bilateral rubber belt splicer weak. Patient does not open eyes. Pupil check equal and reactive @ 3mm. Patient moving around in the bed. Wakes up to name being said.
--- NOTE | 2020-07-25 23:30 | NUR ---
Patient insulin drip to be turned off at 0000, no orders for continued IV fluids. Call to Dr Sami Lucio ICU at this time. Order to start LR@100cc/hr at this time.
[2020-07-26] VITALS (24 sets, daily range): BP systolic 105–183; BP diastolic 49–97
--- NOTE | 2020-07-26 | NUR ---
Patient continues to be lethargic, blood sugar monitored hourly.
[2020-07-26] MEDS ORDERED: LACTATED RINGERS 1,000 ML IV ONE (00:20)
[2020-07-26] MEDS: LACTATED RINGERS 1,000 ML IV SCH ×3 (00:28→20:29)
[2020-07-26] MEDS: hydrALAZINE (APESOLINE) 20 MG/ML VIAL IV PRN ×3 (00:33→20:37)
[2020-07-26] MEDS: 1/2 NS IV SOLUTION 1,000 ML IV SCH ×10 (02:38→20:27)
[2020-07-26 02:53] LABS: ABG OXYGEN SATURATION 94 % (94-100); ABG PCO2 27 MMHG (35-45); ABG PH 7.41 (7.37-7.43); ABG PO2 70 MMHG (79-93); ABG TCO2 17.5 MMOL/L (21.0-31.0)
[2020-07-26 02:56] LABS: ALLENS TEST YES-POS
[2020-07-26 02:57] LABS: INSPIRED O2 ROOM AIR; PATIENT TEMP 37.3; VENTILATOR NO
--- NOTE | 2020-07-26 03:00 | NUR ---
Call placed to E ICU to report ABG results. Reported patient emesis while laying on side in the bed. Patient more lethargic. VS and assessment reported to E ICU at this time.
[2020-07-26 03:02] LABS: BASOPHILS # (AUTO) 0.1 10^3/uL (0.0-0.1); BASOPHILS % (AUTO) 0 % (0-10); EOSINOPHILS % (AUTO) 0 % (0-10); HEMATOCRIT 37 % (35-52); HEMOGLOBIN 13.2 G/DL (11.5-16.0); LYMPHOCYTES # (AUTO) 3.6 X 10^3 (1.0-4.0); LYMPHOCYTES % (AUTO) 17 % (12-44); MEAN CORPUSCULAR HEMOGLOBIN 30 PG (25-34); MEAN CORPUSCULAR HGB CONC 36 G/DL (32-36); MEAN CORPUSCULAR VOLUME 83 FL (80-99); MONOCYTES # (AUTO) 0.6 X 10^3 (0.0-1.0); MONOCYTES % (AUTO) 3 % (0-12); NEUTROPHILS % (AUTO) 80 % (42-75); PLATELET COUNT 274 10^3/uL (130-400); WHITE BLOOD COUNT 21.3 10^3/uL (4.3-11.0)
[2020-07-26 03:17] LABS: CHLORIDE 98 MMOL/L (98-107); POTASSIUM 3.8 MMOL/L (3.6-5.0); SODIUM 128 MMOL/L (135-145)
[2020-07-26 03:19] LABS: CALCIUM 8.7 MG/DL (8.5-10.1); GLUCOSE 325 MG/DL (70-105)
[2020-07-26 03:21] LABS: CARBON DIOXIDE 14 MMOL/L (21-32)
[2020-07-26 03:23] LABS: CREATININE SERUM 0.91 MG/DL (0.60-1.30); GFR ESTIMATED > 60; PHOSPHORUS 2.3 MG/DL (2.3-4.7)
[2020-07-26 03:24] LABS: BUN/CREATININE RATIO 11
[2020-07-26 03:25] LABS: MAGNESIUM 1.3 MG/DL (1.6-2.4)
[2020-07-26 03:28] LABS: BAND NEUTROPHILS 1 %; LYMPHOCYTES % (MANUAL) 18 %; MONOCYTES % (MANUAL) 3 %; NEUTROPHILS % (MANUAL) 78 %; RBC MORPH NORMAL
[2020-07-26] MEDS ORDERED: D5 1/2 NS 1000 ML IV SOLUTION 1,000 ML IV SCH (03:45)
[2020-07-26] MEDS ORDERED: POTASSIUM CL 10MEQ/50ML IVPB 50 ML IV SCH (03:45)
--- NOTE | 2020-07-26 03:45 | NUR ---
Patient placed back on DKA protocol and insulin drip at this time.
[2020-07-26] MEDS: inSUlin ASPART (NovoLOG) 1 UNIT/0.01 ML (CHARGE PER UNIT) SC SCH ×2 (04:14→11:03)
[2020-07-26] MEDS: MAGNESIUM 1 GM/100 ML IVPB 100 ML IV SCH ×5 (04:14→07:26)
[2020-07-26] MEDS: POTASSIUM CL 10MEQ/50ML IVPB 50 ML IV SCH ×8 (04:14→22:52)
[2020-07-26] MEDS: KCL 20 MEQ TAB (K-DUR) PO SCH (04:14)
--- NOTE | 2020-07-26 04:34 | Pulmonary Progress Note ---
ENIO BOBBY MED STUDENT 07/26/20 0434: Subjective Date Seen by a Provider: Jul 26, 2020 Time Seen by a Provider: 04:20 Subjective/Events-last exam Itzel Urbano arrived in the ED yesterday complaining of general malaise, pain all over, nausea, and high blood sugar she could not control. While in the ED she had a seizure, was treated with ativan. Since being admitted to the ICU she has become increasingly lethargic, vomited once during the night. She opened her eyes and made eye contact when initially spoken to by myself, but otherwise did not respond to any questions. Sepsis Event Evaluation Height, Weight, BMI Height: 5'1.00" Weight: 122lbs. 1.0oz. 55.798244uz; 25.00 BMI Method:Estimated Focused Exam Lactate Level 07/26/20 03:45: Lactic Acid Level 1.31 Lactic Acid Level Laboratory Tests Test 07/26/20 03:45 Lactic Acid Level 1.31 MMOL/L (0.50-2.00) Exam Exam Vital Signs Date Time Temp Pulse Resp B/P (MAP) Pulse Ox O2 Delivery O2 Flow Rate FiO2 07/26/20 04:00 98 Room Air 07/26/20 03:00 37.3 07/26/20 02:00 117 21 162/94 (116) 97 Room Air 07/26/20 01:00 120 07/26/20 01:00 116 21 152/85 (107) 98 Room Air 07/26/20 00:00 96 Room Air 07/26/20 00:00 105 20 174/92 (119) 97 Room Air 07/25/20 23:33 36.8 Room Air 07/25/20 23:00 106 27 158/82 (107) 98 Room Air 07/25/20 22:00 101 22 175/86 (115) 97 Room Air 07/25/20 21:00 101 22 176/88 (117) 98 Room Air 07/25/20 20:00 97 16 179/85 (116) 98 Room Air 07/25/20 19:30 98 Room Air 07/25/20 19:15 37.6 96 9 169/81 (110) 98 Room Air 07/25/20 19:00 100 07/25/20 18:00 90 20 182/153 (163) 98 Room Air 07/25/20 17:00 85 183/12 (68) 98 Room Air 07/25/20 16:30 87 98 Room Air 07/25/20 16:00 36.8 07/25/20 16:00 88 99/89 (92) 99 Room Air 07/25/20 15:45 89 187/88 (121) 99 Room Air 07/25/20 15:30 175/93 (120) 98 Room Air 07/25/20 15:15 90 39 193/126 (148) 98 Room Air 07/25/20 15:00 88 30 180/107 (131) 97 Room Air 07/25/20 14:52 85 07/25/20 14:31 87 16 188/98 97 Room Air 07/25/20 14:30 Room Air 07/25/20 10:45 37.1 83 16 196/98 (130) 97 Room Air I & O 07/26/20 07:00 Intake Total 1100 ml Output Total 1825 ml Balance -725 ml Height & Weight Height: 5'1.00" Weight: 122lbs. 1.0oz. 55.695740ud; 25.00 BMI Method:Estimated General Appearance: Mild Distress, Other (lethargic) Neck: Normal Inspection, Supple Respiratory: Normal Breath Sounds, No Accessory Muscle Use, No Respiratory Distress Cardiovascular: Regular Rate, Rhythm, No Edema, No Gallop, No JVD, No Murmur, Normal Peripheral Pulses Capillary Refill: Less Than 3 Seconds Gastrointestinal: soft, no organomegaly Extremity: Normal Capillary Refill, Normal Inspection, No Pedal Edema Neurologic/Psychiatric: Alert; No Oriented x3 (unknown, not speaking) Skin: Normal Color, Warm/Dry Results Lab Laboratory Tests 07/25/20 11:05 07/25/20 15:07 07/25/20 15:50 07/26/20 02:59 Assessment/Plan Assessment/Plan DKA - continue NS, potassium and magnesium replacement - begin IV insulin 0.1 u/kg bolus N/V - monitor for s/s of aspiration - continue phenergan Seizure - monitor, ativan if recurrence KIM BRIGHT DO 07/26/20 0549: Exam Exam General Appearance: Other (lethargic) HEENT: PERRL/EOMI Neck: Normal Inspection, Supple Respiratory: Normal Breath Sounds, No Accessory Muscle Use, No Respiratory Distress Cardiovascular: Regular Rate, Rhythm, No Edema, No Gallop, No JVD, No Murmur, Normal Peripheral Pulses Gastrointestinal: soft, no organomegaly Extremity: Normal Capillary Refill, Normal Inspection, Other Neurologic/Psychiatric: Alert, Depressed Affect, Other (squeezes hands bilaterally upon request.) Skin: Normal Color, Warm/Dry Assessment/Plan Assessment/Plan Acute DKA -Betahydroxy buterate in elevated -UA for ketones is pending -Insulin gtt restarted -Monitor Metabolic encephalopathy -UDS is negative -Monitor questionable seizure while in ED -PRN ATIVAN -Seizure precautions Hyponatremia -Monitor Leukocytosis r/o infection -Check PCT -Start Rocephin -repeat UA is pending Supervisory-Addendum Brief Verification & Attestation Participated in pt care: history, MDM, physical Personally performed: exam, history, MDM Care discussed with: Medical Student Procedures: n/a Verification and Attestation of Medical Student E/M Service A medical student performed and documented this service in my presence. I reviewed and verified all information documented by the medical student and made modifications to such information, when appropriate. I personally performed the physical exam and medical decision making. Kim Bright, Jul 26, 2020,05:50 ENIO BOBBY MED STUDENT Jul 26, 2020 04:34 KIM BRIGHT DO Jul 26, 2020 05:49
[2020-07-26] MEDS: cefTRIAXone FOR IV USE 1,000 MG in WATER (STERILE) FOR INJECTION 10 ML IV SCH (05:40)
[2020-07-26 05:54] LABS: POTASSIUM 3.8 MMOL/L (3.6-5.0)
[2020-07-26 05:56] LABS: CALCIUM 8.6 MG/DL (8.5-10.1)
[2020-07-26 06:00] LABS: CREATININE SERUM 1.02 MG/DL (0.60-1.30); PHOSPHORUS 1.6 MG/DL (2.3-4.7)
[2020-07-26 06:00] LABS: BILIRUBIN,URINE NEGATIVE (NEGATIVE); CLARITY,URINE CLEAR; COLOR,URINE YELLOW; GLUCOSE, URINE (UA) 3+ (NEGATIVE); KETONES,URINE 3+ (NEGATIVE); LEUKOCYTE ESTERASE ,URINE NEGATIVE (NEGATIVE); NITRITE,URINE NEGATIVE (NEGATIVE); PROTEIN,URINE 3+ (NEGATIVE)
[2020-07-26 06:08] LABS: BACTERIA,URINE FEW /HPF
--- NOTE | 2020-07-26 08:17 | Diagnostic Imaging Report ---
INDICATION: Dyspnea. TECHNIQUE: Single view chest 3:58 AM. CORRELATION STUDY: 07/25/2020 FINDINGS: Right IJ Qimrhe-p-Cddf catheter with the apex of the catheter incompletely visualized. Tip over the right atrium. Electronic loop recorder device over the left heart. Heart size and mediastinum are generally stable. Elevated right diaphragm. No infiltrate. Cervical spinal fixation hardware partially visualized. IMPRESSION: 1. Stable chest demonstrates no acute abnormality. Dictated by: Dictated on workstation # [id number]
[2020-07-26] MEDS ORDERED: ENOXAPARIN 40 MG/0.4 ML (LOVENOX) SYR SC SCH (09:00)
[2020-07-26] MEDS: D5 1/2 NS 1000 ML IV SOLUTION 1,000 ML IV SCH ×3 (10:14→19:26)
[2020-07-26 11:32] LABS: BUN/CREATININE RATIO 10; CALCIUM 8.6 MG/DL (8.5-10.1); CARBON DIOXIDE 19 MMOL/L (21-32); CHLORIDE 100 MMOL/L (98-107); CREATININE SERUM 0.88 MG/DL (0.60-1.30); GFR ESTIMATED > 60; GLUCOSE 197 MG/DL (70-105); POTASSIUM 3.8 MMOL/L (3.6-5.0); SODIUM 127 MMOL/L (135-145)
--- NOTE | 2020-07-26 16:12 | NUR ---
I WENT TO SPEAK WITH THE PT, SHE WAS ASLEEP AND WHEN I DID GET HER TO WAKE SHE WASNT ABLE TO KEEP HER EYES OPEN FOR VERY LONG TO CARRY ON A CONVERSATION. I EXPLAINED WHO I WAS AND THAT I HAVE SPOKEN TO HER RECENTLY (DURING A PRIOR HOSPITALIZATION), SHE NODDED YES AND WHEN I ASKED HER ANY OF HER MEDICATIONS HAD CHANGED SINCE THEN SHE NODDED NO AND THEN RETURNED TO SLEEP. I CALLED [facility] AND WAS TOLD NOTHING HAD BEEN PICKED UP SINCE THE END OF JUNE. FOR THIS REASON I COMPLETED THE MED REC WITH INFORMATION I HAD FROM THE PREVIOUS VISIT. I WILL FOLLOW UP WITH THE PT NEXT WEEK IF NEEDED
--- NOTE | 2020-07-26 16:31 | Progress Note - Hospitalist ---
Subjective HPI/CC On Admission Date Seen by Provider: Jul 26, 2020 Time Seen by Provider: 08:40 Itzel Urbano is a 60 year old female with history of insulin dependent diabetes mellitus who presented with malaise. She was found to have elevated blood sugars. She subsequently had seizure-like activity in the ER. She was given Ativan and this resolved. She was started on an insulin drip and admitted to the ICU. Upon my examination, she is unresponsive. She is unable to provide any additional history. Subjective/Events-last exam She remains unresponsive. Focused Exam Lactate Level 07/26/20 03:45: Lactic Acid Level 1.31 Objective Exam Vital Signs Vital Signs Date Time Temp Pulse Resp B/P (MAP) Pulse Ox O2 Delivery O2 Flow Rate FiO2 07/26/20 15:50 37.3 07/26/20 15:00 100 24 165/92 (116) 98 Room Air Capillary Refill : Less Than 3 Seconds General Appearance: No Apparent Distress, Chronically ill, Other (obtunded and unresponsive) Neck: Normal Inspection, Supple Respiratory: Lungs Clear, Normal Breath Sounds, No Respiratory Distress Cardiovascular: No Edema, No Murmur, Tachycardia (regular rhythm) Gastrointestinal: Normal Bowel Sounds, Soft Extremity: Normal Inspection, No Pedal Edema Neurologic/Psychiatric: Other (obtunded, unresponsive) Skin: Normal Color, Warm/Dry Results/Procedures Lab Laboratory Tests 07/26/20 02:59 07/26/20 05:35 07/26/20 11:09 Patient resulted labs reviewed. Imaging: Reviewed Imaging Report Assessment/Plan Assessment and Plan Assess & Plan/Chief Complaint T2DM with HHS DKA LANE Seizure Hyponatremia Metabolic acidosis -Blood sugar improved -Creatinine improved -Beta hydroxybutyrate increased -Transitioned off insulin gtt last night and went into DKA -Resume insulin gtt, DKA protocol -IV fluids -Ativan as needed for seizures Leukocytosis -XR without consolidation -UA not indicative of UTI, urine culture pending -Procalcitonin normal -Started on Rocephin DVT Prophylaxis: Lovenox Diagnosis/Problems Diagnosis/Problems (1) Diabetic ketoacidosis Status: Acute Qualifiers: Diabetes mellitus type: type 2 Diabetes mellitus complication detail: with coma Qualified Codes: E11.11 - Type 2 diabetes mellitus with ketoacidosis with coma (2) Type 2 diabetes mellitus Status: Acute Qualifiers: Diabetes mellitus halfway insulin use: with halfway use Diabetes mellitus complication status: with hyperosmolarity Diabetes mellitus complication detail: with coma Qualified Codes: E11.01 - Type 2 diabetes mellitus with hyperosmolarity with coma; Z79.4 - supervisor intermediates (current) use of insulin (3) Diabetic hyperosmolar non-ketotic state Status: Acute (4) Seizure Status: Acute (5) Hyponatremia Status: Acute (6) Acute kidney injury superimposed on chronic kidney disease Status: Acute Clinical Quality Measures DVT/VTE Risk/Contraindication: Risk Factor Score Per Nursin RFS Level Per Nursing on Admit: 3=High JUAN DAVID BRADSHAW MD Jul 26, 2020 16:31
[2020-07-26 20:49] LABS: CHLORIDE 105 MMOL/L (98-107); POTASSIUM 3.8 MMOL/L (3.6-5.0); SODIUM 131 MMOL/L (135-145)
[2020-07-26 20:50] LABS: CALCIUM 8.1 MG/DL (8.5-10.1)
[2020-07-26 20:51] LABS: GLUCOSE 144 MG/DL (70-105)
[2020-07-26 20:52] LABS: CARBON DIOXIDE 18 MMOL/L (21-32)
[2020-07-26 20:55] LABS: CREATININE SERUM 0.83 MG/DL (0.60-1.30); GFR ESTIMATED > 60
[2020-07-26 20:56] LABS: BUN/CREATININE RATIO 8
[2020-07-27] VITALS (24 sets, daily range): BP systolic 104–179; BP diastolic 68–92
--- NOTE | 2020-07-27 00:11 | NUR ---
pain noted facial grimacing, and moaning noted. EICU physician notified, see EMAR for new orders.
[2020-07-27] MEDS ORDERED: ACETAMINOPHEN 650 MG SUPP (TYLENOL) PR ONE (00:15)
[2020-07-27] MEDS: POTASSIUM CL 10MEQ/50ML IVPB 50 ML IV SCH ×4 (00:58→07:03)
[2020-07-27] MEDS: D5 1/2 NS 1000 ML IV SOLUTION 1,000 ML IV SCH ×3 (00:58→07:42)
[2020-07-27] MEDS: 1/2 NS IV SOLUTION 1,000 ML IV SCH ×8 (03:22→14:01)
[2020-07-27 03:31] LABS: BASOPHILS % (AUTO) 0 % (0-10); EOSINOPHILS # (AUTO) 0.1 10^3/uL (0.0-0.3); EOSINOPHILS % (AUTO) 1 % (0-10); HEMATOCRIT 32 % (35-52); LYMPHOCYTES # (AUTO) 3.8 X 10^3 (1.0-4.0); LYMPHOCYTES % (AUTO) 28 % (12-44); MEAN CORPUSCULAR HEMOGLOBIN 30 PG (25-34); MEAN CORPUSCULAR HGB CONC 35 G/DL (32-36); MEAN CORPUSCULAR VOLUME 85 FL (80-99); MEAN PLATELET VOLUME 9.9 FL (7.4-10.4); MONOCYTES % (AUTO) 7 % (0-12); NEUTROPHILS # (AUTO) 8.8 X 10^3 (1.8-7.8); NEUTROPHILS % (AUTO) 64 % (42-75); PLATELET COUNT 219 10^3/uL (130-400); WHITE BLOOD COUNT 13.8 10^3/uL (4.3-11.0)
[2020-07-27 03:38] LABS: CHLORIDE 111 MMOL/L (98-107); POTASSIUM 3.9 MMOL/L (3.6-5.0); SODIUM 135 MMOL/L (135-145)
[2020-07-27 03:40] LABS: CALCIUM 7.9 MG/DL (8.5-10.1); GLUCOSE 175 MG/DL (70-105)
[2020-07-27 03:42] LABS: CARBON DIOXIDE 18 MMOL/L (21-32)
[2020-07-27 03:44] LABS: CREATININE SERUM 0.82 MG/DL (0.60-1.30); GFR ESTIMATED > 60; PHOSPHORUS 2.3 MG/DL (2.3-4.7)
[2020-07-27 03:45] LABS: BUN/CREATININE RATIO 7
[2020-07-27] MEDS: cefTRIAXone FOR IV USE 1,000 MG in WATER (STERILE) FOR INJECTION 10 ML IV SCH (05:15)
[2020-07-27] MEDS: MAGNESIUM 1 GM/100 ML IVPB 100 ML IV SCH (06:42)
[2020-07-27] MEDS: KCL 20 MEQ TAB (K-DUR) PO SCH (06:42)
[2020-07-27] MEDS: LACTATED RINGERS 1,000 ML IV SCH (06:43)
--- NOTE | 2020-07-27 08:55 | Progress Note - Hospitalist ---
Subjective HPI/CC On Admission Date Seen by Provider: Jul 27, 2020 Time Seen by Provider: 08:47 Itzel Urbano is a 60 year old female with history of insulin dependent diabetes mellitus who presented with malaise. She was found to have elevated blood sugars. She subsequently had seizure-like activity in the ER. She was given Ativan and this resolved. She was started on an insulin drip and admitted to the ICU. Upon my examination, she is unresponsive. She is unable to provide any additional history. Subjective/Events-last exam Pt more alert today. Complains of pain but unable to tell me where or how intense states 'I don't know" when asked these questions. Inquired into her home pain medication regimen as UDS was negative on arrival and if she had been taking them like she was supposed to. She said no. I asked her if she has ever withdrawn from opiates before and she did answer. Focused Exam Lactate Level 07/26/20 03:45: Lactic Acid Level 1.31 Objective Exam Vital Signs Vital Signs Date Time Temp Pulse Resp B/P (MAP) Pulse Ox O2 Delivery O2 Flow Rate FiO2 07/27/20 08:00 37.4 94 15 123/82 (96) 99 Room Air Capillary Refill : Greater Than 3 SecondsGreater Than 3 Seconds General Appearance: Anxious, Chronically ill Respiratory: Lungs Clear, No Respiratory Distress Cardiovascular: Regular Rate, Rhythm, No Murmur Gastrointestinal: Normal Bowel Sounds, Non Tender, Soft Neurologic/Psychiatric: Alert, Aphasia (expressive) Results/Procedures Lab Laboratory Tests 07/26/20 11:09 07/26/20 20:35 07/27/20 03:12 Patient resulted labs reviewed. Imaging: Reviewed Imaging Report Assessment/Plan Assessment and Plan Assess & Plan/Chief Complaint T2DM with HHS DKA LANE Seizure Hyponatremia Metabolic acidosis -Blood sugars improved- will transition back to basal insulin today and DC gtt -Creatinine improved -IV fluids -Ativan as needed for seizures Encephalopathy - Will repeat CT head today as has been off anticoagulation - Dysphasia screen - More suspicious for residual encephalopathy from seizure and extremely high blood sugars on arrival Leukocytosis- improving -XR without consolidation -UA not indicative of UTI, urine culture pending still -Procalcitonin normal -Started on Rocephin and noew trending down, await cultures History of DVT Chronic anticoagulation - Increase lovenox to therapeutic - Resume home anticoagulation when able to take PO DVT Prophylaxis: Lovenox therapeutic Clinical Quality Measures DVT/VTE Risk/Contraindication: Risk Factor Score Per Nursin RFS Level Per Nursing on Admit: 3=High GERARDO RITTER MD Jul 27, 2020 08:55
--- NOTE | 2020-07-27 09:03 | Diagnostic Imaging Report ---
EXAMINATION: Chest 1 view HISTORY: Dyspnea. COMPARISON: 07/26/2020. FINDINGS: A right internal jugular approach port is stable in configuration. The lung volumes are normal. No focal consolidation is seen. No large pleural effusion or pneumothorax is seen. The cardiomediastinal silhouette is normal in size and contour. Loop recorder is again noted overlying the cardiac silhouette. No acute osseous abnormality is seen. Prior cervical fusion changes are noted. IMPRESSION: 1. Stable chest. Stable configuration of the right internal jugular port. Dictated by: Dictated on workstation # [id number]
[2020-07-27] MEDS: ENOXAPARIN 80 MG/0.8 ML (LOVENOX) SYR SC SCH ×2 (09:32→21:20)
--- NOTE | 2020-07-27 09:37 | NUR ---
Pt to imaging for head CT. This RN accompanied her. CT completed without difficulty.
--- NOTE | 2020-07-27 10:10 | Diagnostic Imaging Report ---
EXAMINATION: CT head without contrast. TECHNIQUE: Multiple contiguous axial images were obtained through the brain without the use of intravenous contrast. All CT scans use one or more of the following dose optimizing techniques: automated exposure control, MA and/or KvP adjustment based on a patient size and exam type, or iterative reconstruction. HISTORY: Aphasia. Seizure. COMPARISON: CT head on 07/25/2020. FINDINGS: No large acute territorial ischemia, mass, or hemorrhage. Old lacunar infarct is noted in the right basal ganglia. No midline shift or mass effect. Scattered areas of decreased attenuation are seen in the periventricular and subcortical white matter. The ventricles and cortical sulci are mildly prominent. The basilar cisterns are patent and unremarkable. The orbits are normal. Paranasal sinuses are normal. Mastoid air cells are clear. No soft tissue abnormality is seen. No osseus lesions or fractures are seen. IMPRESSION: 1. No large acute territorial ischemia, mass, or hemorrhage. 2. Old lacunar infarct in the right basal ganglia. 3. Generalized parenchymal volume loss with scattered chronic microvascular disease. Dictated by: Dictated on workstation # [id number]
[2020-07-27] MEDS: inSUlin ASPART (NovoLOG) 1 UNIT/0.01 ML (CHARGE PER UNIT) SC SCH ×3 (11:13→21:20)
[2020-07-27] MEDS: hydrALAZINE (APESOLINE) 20 MG/ML VIAL IV PRN (11:45)
[2020-07-27] MEDS ORDERED: oxyCODONE/APAP 5/325MG (PERCOCET 5) TABLET ONE (13:09)
[2020-07-27] MEDS: oxyCODONE/APAP 5/325MG (PERCOCET 5) TABLET PO PRN ×3 (13:13→22:08)
--- NOTE | 2020-07-27 13:57 | Occupational Therapy Eval ---
OT Evaluation-General/PLF Medical Diagnosis Admission Date Jul 25, 2020 at 13:05 Medical Diagnosis: diabetic hyperosmolar nonketotic state, metabolic acidosis, Onset Date: Jul 25, 2020 Therapy Diagnosis Therapy Diagnosis: decr self care, weakness, decr funct mob, decr act dominick Height/Weight Height (Feet): 5 Height (Inches): 1.00 Weight (Pounds): 122 Weight (Ounces): 1.0 Precautions Precautions/Isolations: Seizure, Fall Prevention, Standard Precautions Referral Physician: Nusrat Referral Reason: Evaluation/Treatment Medical History Pertinent Medical History: Alcoholism, CAD, DM, GERD, HTN, Neuropathy, Renal Insufficiency, Smoking Additional Medical History Chronic bronchitis, sleep apnea. Cardiac stent, carotid disease. DVTs in arms, chronic edema. Neuropathy hands and feet. Chronic back pain, chronic bilat shoulder pain, chronic neck pain, 4 lumbar surgeries, cervical fusion. DDD, fibromyalgia. CROW. Anxiety. L shoulder rotator repair Current History ADmitted with nausea, malaise. Increased blood sugar. Seizurelike activity in ED. Encephalopathy Reviewed History: Yes Social History Home: Apartment ([facility]) ADL-Prior Level of Function SCALE: Activities may be completed with or without assistive devices. 6-Ggtfmuziam-rqaijzx completes the activity by him/herself with no assistance from a helper. 5-Set-up or Clean-up Assistance-helper sets up or cleans up; patient completes activity. [place] assists only prior to or following the activity. 4-Supervision or Touching Assistance-helper provides verbal cues and/or touching/steadying and/or contact guard assistance as patient completes activity. Assistance may be provided throughout the activity or intermittently. 3-Partial/Moderate Assistance-helper does LESS THAN HALF the effort. [place] lifts, holds or supports trunk or limbs, but provides less than half the effort. 2-Substantial/Maximal Assistance-helper does MORE THAN HALF the effort. [place] lifts or holds trunk or limbs and provides more than half the effort. 6-Ehtmmnjmh-hsvwaj does ALL the effort. Patient does none of the effort to complete the activity. Or, the assistance of 2 or more helpers is required for the patient to complete the activity. If activity was not attempted, code reason: 7-Patient Refused. 9-Not Applicable-not attempted and the patient did not perform the activity before the current illness, exacerbation or injury. 10-Not Attempted due to Environmental Limitations-(lack of equipment, weather restraints, etc.). 88-Not Attempted due to Medical Conditions or Safety Concerns. ADL PLOF Comments Unable to get history on prior level of care. OT Current Status Subjective Pt seen in room, up in bed, eyes closed. Pt reported abdominal pain 10/10 at end of tx, nursing notified Appearance Eyes closed but able to be awakened. Gave name but not or location. Mental Status/Objective Patient Orientation: Person Pt has a sitter due to agitation Attachments: Central Line, Bateman Catheter, IV, Telemetry Current Upper Extremity ROM Grossly WFL except limited L shoulder to approx 90 degrees Upper Extremity Strength Grossly 3+/5 bilat ADL-Treatment ADL-Current Pt reported that she had a bite of mashed potatoes at lunch but otherwise not eating. Has not been up to EOB due to decreased awareness. Total care for toileting. Education OT Patient Education: Purpose of tx/functional activities, Rehab process Teaching Recipient: Patient Teaching Methods: Discussion Response to Teaching: Reinforcement Needed OT Jail Goals Dehydrator Tender Goals Time Frame: Aug 02, 2020 Eating (QC): 5 Oral Hygiene (QC): 5 Toileting Hygiene (QC): 5 Shower/Bathe Self (QC): 5 Upper Body Dressing (QC): 5 Lower Body Dressing (QC): 5 On/Off Footwear (QC): 5 Additional Goals: 1-Demonstrate ADL Tasks, 2-Verbalize Understanding, 3- ImproveStrength/Yue 1=Demonstrate adherence to instructed precautions during ADL tasks. 2=Patient will verbalize/demonstrate understanding of assistive devices/modifications for ADL. 3=Patient will improve strength/tolerance for activity to enable patient to perform ADL's. OT Education/Plan Problem List/Assessment Assessment: Decreased Activ Tolerance, Decreased UE Strength, Dependent Transfers, Impaired Cognition, Impaired Self-Care Skills Pt would benefit from skilled OT to increase her independence in basic self care to allow her to safely return home. Discharge Recommendations Plan/Recommendations: Continue POC Treatment Plan/Plan of Care Treatment,Training & Education: Yes Patient would benefit from OT for education, treatment and training to promote independence in ADL's, mobility, safety and/or upper extremity function for ADL's. Plan of Care: ADL Retraining, Functional Mobility, UE Funct Exercise/Act, UE Neuromus Re-Ed/Coord Treatment Duration: Aug 02, 2020 Frequency: 5 times per week Estimated Hrs Per Day: .25 hour per day Agreement: Yes Rehab Potential: Fair Time/GCodes Start Time: 12:41 Stop Time: 12:50 Total Time Billed (hr/min): 9 Billed Treatment Time visit, 9 minutes evaluation moderate intensity ANKUSH MCGILL OT Jul 27, 2020 13:57
--- NOTE | 2020-07-27 14:52 | Physical Therapy Evaluation ---
PT Evaluation-General Medical Diagnosis Admission Date Jul 25, 2020 at 13:05 Medical Diagnosis: diabetic hyperosmolar nonketotic state, metabolic acidosis, Onset Date: Jul 25, 2020 Therapy Diagnosis Therapy Diagnosis: impaired mobility Height/Weight Height (Feet): 5 Height (Inches): 1.00 Weight (Pounds): 122 Weight (Ounces): 1.0 Precautions Precautions/Isolations: Seizure, Fall Prevention, Standard Precautions Weight Bear Status Right Lower Extremity: Right Full Weight Bearing Left Lower Extremity: Left Full Weight Bearing Referral Physician: Nusrat Reason for Referral: Evaluation/Treatment Medical History Pertinent Medical History: Alcoholism, CAD, DM, GERD, HTN, Neuropathy, Renal Insufficiency, Smoking Additional Medical History cardiac stent, CAD, DVT, hypercholesterolemia, palpitations, diverticulosis, anxiety Current History Admit via ED due to non-ketotic hyperglycemia, with a seizure occurring in ED. Reviewed History: Yes Social History Home: Apartment ([facility]) Prior Prior Level of Function SCALE: Activities may be completed with or without assistive devices. 6-Hfdenlubbj-oszeafr completes the activity by him/herself with no assistance from a helper. 5-Set-up or Clean-up Assistance-helper sets up or cleans up; patient completes activity. [place] assists only prior to or following the activity. 4-Supervision or Touching Assistance-helper provides verbal cues and/or touching/steadying and/or contact guard assistance as patient completes activity. Assistance may be provided throughout the activity or intermittently. 3-Partial/Moderate Assistance-helper does LESS THAN HALF the effort. [place] lifts, holds or supports trunk or limbs, but provides less than half the effort. 2-Substantial/Maximal Assistance-helper does MORE THAN HALF the effort. [place] lifts or holds trunk or limbs and provides more than half the effort. 0-Xnkcsodox-uxbzci does ALL the effort. Patient does none of the effort to complete the activity. Or, the assistance of 2 or more helpers is required for the patient to complete the activity. If activity was not attempted, code reason: 7-Patient Refused. 9-Not Applicable-not attempted and the patient did not perform the activity before the current illness, exacerbation or injury. 10-Not Attempted due to Environmental Limitations-(lack of equipment, weather restraints, etc.). 88-Not Attempted due to Medical Conditions or Safety Concerns. Bed Mobility: 6 Transfers (B,C,W/C): 6 Gait: 6 Stairs: 6 Indoor Mobility (Ambulation): Independent Stairs: Independent Prior Device Use: none PT Evaluation-Current Subjective Pt is minimally expressive during evaluation. emanations analysis technician was present and able to assist with history. Pain Numeric Pain Scale: 8 Location: Lower Location Body Site: Back Pain Description: Sharp Pt/Family Goals Return home Objective Patient Orientation: Person, Place, Time, Situation Attachments: Bateman Catheter, IV ROM/Strength ROM Upper Extremities WFL ROM Lower Extremities WFL Strength Upper Extremities WFL Strength Lower Extremities WFL Neuromuscular (Tone, Coordination, Reflexes) Sensation and reflexes are intact for (B) LEs. Sensory Vision: Functional Hearing: Functional Sensation Right Upper Extremit: Intact Sensation Left Upper Extremity: Intact Sensation Right Lower Extremit: Intact Sensation Left Lower Extremity: Intact Transfers Roll Left to Right (QC): 2 Sit to Lying (QC): 2 Lying to Sitting/Side of Bed(Q: 2 Sit to Stand (QC): 4 Pt required significant assistance for the initial transfer from supine to sitting. Sit to stand was performed with contact assist, with the patient providing 100% of the lift. Gait Does the Patient Walk?: Yes Mode of Locomotion: Walk Anticipated Mode of Locomotion: Walk Distance: 3ft Gait Assistive Device: FWW Wheelchair Training Does the Pt Use a Wheelchair?: No Balance Sitting Static: Good Sitting Dynamic: Fair Standing Static: Good Standing Dynamic: Fair Assessment/Needs Pt was able to perform sit to stand with only contact assist. She then took steps to the (R) to get into the correct position to lie down. She was then able to get herself back into bed with SBA. Rehab Potential: Good PT Short Term Goals Short Term Goals Time Frame: Aug 10, 2020 Roll Left & Right: 6 Sit to lyin Lying to sitting on side of be: 6 Sit to stand: 6 Chair/vmo-bx-lsdgc transfer: 6 Toilet transfer: 6 Car transfer: 6 Walk 10 feet: 6 Walk 50 feet with two turns: 6 Walk 150 feet: 6 PT Plan Problem List Problem List: Activity Tolerance, Functional Strength, Balance, Gait, Transfer, Bed Mobility Treatment/Plan Treatment Plan: Continue Plan of Care Treatment Plan: Bed Mobility, Concurrent Therapy, Education, Functional Activity Yue, Functional Strength, Gait, Therapeutic Exercise, Transfers Treatment Duration: Aug 10, 2020 Frequency: 6 times per week Estimated Hrs Per Day: .25 hour per day Patient and/or Family Agrees t: Yes Time/GCodes Time In: 1255 Time Out: 1315 Total Billed Treatment Time: 20 Total Billed Treatment 1, edward 20 VLAD DODD PT Jul 27, 2020 14:51
--- NOTE | 2020-07-27 20:37 | NUR ---
This RN notified EICU, Dr. Esparza, of patient's blood sugar of 279. Per sliding scale patient should be given Novolog 8u and ordered Levemir 15u at 2100. This RN expressed concern and hesitation in giving patient above orders due to her being a brittle diabetic this RN reported that during the day patient's blood sugar was 302 at 10:52am and patient received 10units of Novolog. At 3:36pm blood sugar was 81 and at 5:20pm blood sugar was 75. Order received from Dr. Esparza to give sliding scale Novolog 8u and Levemir 10u X1 now.
[2020-07-27] MEDS: diphenhydrAMINE 50 MG/ML INJ (BENADRYL) IVP PRN (21:21)
[2020-07-27] MEDS: PROMETHAZINE INJ 25 MG/ML (PHENERGAN) AMP IVP PRN (22:55)
[2020-07-28] VITALS (15 sets, daily range): BP systolic 116–175; BP diastolic 64–98
[2020-07-28] MEDS: hydrALAZINE (APESOLINE) 20 MG/ML VIAL IV PRN ×2 (00:20→06:22)
[2020-07-28] MEDS: 1/2 NS IV SOLUTION 1,000 ML IV SCH ×3 (00:21→20:44)
[2020-07-28] MEDS: diphenhydrAMINE 50 MG/ML INJ (BENADRYL) IVP PRN ×5 (01:13→20:43)
[2020-07-28] MEDS: oxyCODONE/APAP 5/325MG (PERCOCET 5) TABLET PO PRN ×4 (02:06→20:41)
[2020-07-28 03:36] LABS: BASOPHILS # (AUTO) 0.1 10^3/uL (0.0-0.1); BASOPHILS % (AUTO) 1 % (0-10); EOSINOPHILS # (AUTO) 0.5 10^3/uL (0.0-0.3); EOSINOPHILS % (AUTO) 5 % (0-10); HEMATOCRIT 32 % (35-52); HEMOGLOBIN 10.8 G/DL (11.5-16.0); LYMPHOCYTES # (AUTO) 4.9 X 10^3 (1.0-4.0); LYMPHOCYTES % (AUTO) 44 % (12-44); MEAN CORPUSCULAR HEMOGLOBIN 30 PG (25-34); MEAN CORPUSCULAR HGB CONC 34 G/DL (32-36); MEAN CORPUSCULAR VOLUME 87 FL (80-99); MEAN PLATELET VOLUME 9.8 FL (7.4-10.4); MONOCYTES # (AUTO) 0.7 X 10^3 (0.0-1.0); MONOCYTES % (AUTO) 6 % (0-12); NEUTROPHILS # (AUTO) 4.9 X 10^3 (1.8-7.8); NEUTROPHILS % (AUTO) 44 % (42-75); PLATELET COUNT 235 10^3/uL (130-400); WHITE BLOOD COUNT 11.2 10^3/uL (4.3-11.0)
[2020-07-28 03:49] LABS: CHLORIDE 111 MMOL/L (98-107); POTASSIUM 3.6 MMOL/L (3.6-5.0); SODIUM 138 MMOL/L (135-145)
[2020-07-28 03:50] LABS: CALCIUM 8.2 MG/DL (8.5-10.1)
[2020-07-28 03:52] LABS: CARBON DIOXIDE 18 MMOL/L (21-32)
[2020-07-28 03:54] LABS: CREATININE SERUM 0.77 MG/DL (0.60-1.30); GFR ESTIMATED > 60; PHOSPHORUS 3.7 MG/DL (2.3-4.7)
[2020-07-28 03:55] LABS: BUN/CREATININE RATIO 12
[2020-07-28 03:57] LABS: MAGNESIUM 1.8 MG/DL (1.6-2.4)
[2020-07-28 04:36] LABS: GLUCOSE 59 MG/DL (70-105)
[2020-07-28] MEDS: POTASSIUM CL 10MEQ/50ML IVPB 50 ML IV SCH ×3 (04:47→05:32)
--- NOTE | 2020-07-28 04:49 | NUR ---
This RN notified EICU Dr. Esparza of patient's critical serum glucose of 59. Patient is alert and oriented at this time. Patient drank juice cup with two packets of sugar. This RN will reassess blood sugar. No new orders received at this time.
[2020-07-28] MEDS: MAGNESIUM 1 GM/100 ML IVPB 100 ML IV SCH (05:00)
[2020-07-28] MEDS: KCL 20 MEQ TAB (K-DUR) PO SCH (05:00)
[2020-07-28] MEDS: inSUlin ASPART (NovoLOG) 1 UNIT/0.01 ML (CHARGE PER UNIT) SC SCH ×4 (05:00→21:00)
[2020-07-28] MEDS: cefTRIAXone FOR IV USE 1,000 MG in WATER (STERILE) FOR INJECTION 10 ML IV SCH (05:31)
[2020-07-28] MEDS: PROMETHAZINE INJ 25 MG/ML (PHENERGAN) AMP IVP PRN ×3 (06:21→20:42)
--- NOTE | 2020-07-28 08:49 | Progress Note - Hospitalist ---
Subjective HPI/CC On Admission Date Seen by Provider: Jul 28, 2020 Time Seen by Provider: 08:44 Itzel Urbano is a 60 year old female with history of insulin dependent diabetes mellitus who presented with malaise. She was found to have elevated blood sugars. She subsequently had seizure-like activity in the ER. She was given Ativan and this resolved. She was started on an insulin drip and admitted to the ICU. Upon my examination, she is unresponsive. She is unable to provide any additional history. Subjective/Events-last exam Pt reports nausea today. Otherwise no complaints. Discussed my concerns with her over her multiple admissions and that I worry she is unable to care for herself properly at home. She became tearful but ultimately agreed to ask her sister if she can live there after discharge to help with medication administration. Focused Exam Lactate Level 07/26/20 03:45: Lactic Acid Level 1.31 Objective Exam Vital Signs Vital Signs Date Time Temp Pulse Resp B/P (MAP) Pulse Ox O2 Delivery O2 Flow Rate FiO2 07/28/20 08:00 122 151/74 (99) 99 Room Air 07/28/20 08:00 37.1 07/28/20 07:00 26 Capillary Refill : Greater Than 3 SecondsLess Than 3 Seconds General Appearance: No Apparent Distress, Chronically ill Respiratory: Lungs Clear, No Respiratory Distress Cardiovascular: Regular Rate, Rhythm, No Murmur Neurologic/Psychiatric: Alert, Oriented x3 Results/Procedures Lab Laboratory Tests 07/28/20 03:10 Patient resulted labs reviewed. Imaging: Reviewed Imaging Report Assessment/Plan Assessment and Plan Assess & Plan/Chief Complaint T2DM with HHS DKA LANE -resolved Seizure Hyponatremia Metabolic acidosis -Decrease Levemir for hypoglycemia -IV fluids -Ativan as needed for seizures Encephalopathy- resolved - CT head negative - Dysphagia screen - May have been due to opoid withdrawal as her UDS was negative here Leukocytosis- improving -XR without consolidation -UA not indicative of UTI, urine culture pending still -Procalcitonin normal - Will DC rocephin History of DVT Chronic anticoagulation - Resume Eliquis DVT Prophylaxis: Lovenox therapeutic Clinical Quality Measures DVT/VTE Risk/Contraindication: Risk Factor Score Per Nursin RFS Level Per Nursing on Admit: 3=High GERARDO RITTER MD Jul 28, 2020 08:49
[2020-07-28] MEDS ORDERED: ACETAMINOPHEN 325 MG TABLET PO PRN (09:00)
[2020-07-28] MEDS ORDERED: ARTIFICAL TEARS 0.4 ML UNIT DOSE (REFRESH PLUS) OU PRN (09:30)
[2020-07-28] MEDS: PANTOPRAZOLE 20 MG TABLET (PROTONIX) PO SCH (09:42)
[2020-07-28] MEDS: APIXABAN 5 MG (ELIQUIS) TABLET PO SCH ×2 (09:42→21:00)
[2020-07-28] MEDS: ASPIRIN E.C. 81 MG (ECOTRIN) TAB PO SCH (09:42)
--- NOTE | 2020-07-28 09:48 | NUR ---
REPORT RECEIVED FRO CHEMICAL ENGINEERING TEACHER ORI. ASSUMED CARE OF THE PATIENT AT THIS TIME
[2020-07-28] MEDS ORDERED: MELATONIN 10 MG TABLET PO SCH (21:00)
--- NOTE | 2020-07-28 22:00 | NUR ---
pt was caught smoking in her room.. cig and bronze plater locked up in med drawer pt informed that this was not tolerated extra gang supervisor and charge nurse notified.
[2020-07-29] MEDS: diphenhydrAMINE 50 MG/ML INJ (BENADRYL) IVP PRN ×2 (03:25→08:44)
[2020-07-29 03:26] VITALS: BP 158/73
[2020-07-29 04:14] LABS: BASOPHILS # (AUTO) 0.1 10^3/uL (0.0-0.1); BASOPHILS % (AUTO) 1 % (0-10); EOSINOPHILS # (AUTO) 0.6 10^3/uL (0.0-0.3); EOSINOPHILS % (AUTO) 7 % (0-10); HEMATOCRIT 29 % (35-52); HEMOGLOBIN 9.6 G/DL (11.5-16.0); LYMPHOCYTES # (AUTO) 3.4 X 10^3 (1.0-4.0); LYMPHOCYTES % (AUTO) 38 % (12-44); MEAN CORPUSCULAR HEMOGLOBIN 30 PG (25-34); MEAN CORPUSCULAR HGB CONC 33 G/DL (32-36); MEAN CORPUSCULAR VOLUME 89 FL (80-99); MEAN PLATELET VOLUME 10.4 FL (7.4-10.4); MONOCYTES # (AUTO) 0.5 X 10^3 (0.0-1.0); MONOCYTES % (AUTO) 6 % (0-12); NEUTROPHILS # (AUTO) 4.4 X 10^3 (1.8-7.8); NEUTROPHILS % (AUTO) 49 % (42-75); PLATELET COUNT 205 10^3/uL (130-400)
[2020-07-29 04:28] LABS: POTASSIUM 3.7 MMOL/L (3.6-5.0)
[2020-07-29 04:29] LABS: CALCIUM 7.3 MG/DL (8.5-10.1)
[2020-07-29 04:34] LABS: CREATININE SERUM 1.22 MG/DL (0.60-1.30)
[2020-07-29] MEDS: KCL 20 MEQ TAB (K-DUR) PO SCH (05:19)
[2020-07-29] MEDS: inSUlin ASPART (NovoLOG) 1 UNIT/0.01 ML (CHARGE PER UNIT) SC SCH (06:19)
[2020-07-29] MEDS: 1/2 NS IV SOLUTION 1,000 ML IV SCH (06:30)
[2020-07-29 08:00] VITALS: BP 185/83
[2020-07-29] MEDS: APIXABAN 5 MG (ELIQUIS) TABLET PO SCH (08:43)
[2020-07-29] MEDS: PANTOPRAZOLE 20 MG TABLET (PROTONIX) PO SCH (08:43)
[2020-07-29] MEDS: PROMETHAZINE INJ 25 MG/ML (PHENERGAN) AMP IVP PRN (08:44)
[2020-07-29] MEDS: ASPIRIN E.C. 81 MG (ECOTRIN) TAB PO SCH (08:51)
[2020-07-29] MEDS ORDERED: lisINopril 40 MG (PRINIVIL) TABLET PO NR (10:00)
--- NOTE | 2020-07-29 10:42 | Discharge Summary ---
Diagnosis/Chief Complaint Date of Admission Jul 25, 2020 at 13:05 Date of Discharge Discharge Date: Jul 29, 2020 Admission Diagnosis Type 2 diabetes mellitus with hyperosmolar hyperglycemic state Primary Care Gerardo Greenwood DO Discharge Diagnosis (1) Diabetic ketoacidosis Status: Acute (2) Type 2 diabetes mellitus Status: Acute (3) Diabetic hyperosmolar non-ketotic state Status: Acute (4) Seizure Status: Acute (5) Hyponatremia Status: Acute (6) Acute kidney injury superimposed on chronic kidney disease Status: Acute Discharge Summary Discharge Physical Exam Allergies: Coded Allergies: ketorolac (Verified Allergy, Severe, ANAPHYLAXIS, PT TAKES ASA AT HOME, 03/06/19) ondansetron (Verified Allergy, Intermediate, RASH, 03/06/19) RASH/ HIVES scopolamine (Verified Allergy, Mild, Rash, 03/21/19) exenatide (Verified Allergy, Unknown, NAUSEA, 03/06/19) NON STOP VOMITING latex (Verified Allergy, Unknown, RASH, 03/06/19) metoclopramide (Verified Allergy, Unknown, RESTLESS LEGS, 03/06/19) erythromycin base (Verified Adverse Reaction, Unknown, 03/21/19) Vitals & I&Os Vital Signs Date Time Temp Pulse Resp B/P (MAP) Pulse Ox O2 Delivery O2 Flow Rate FiO2 07/29/20 08:00 37.0 87 20 185/83 (117) 96 Room Air Hospital Course Labs (last 24 hrs) Laboratory Tests 07/28/20 10:45: Glucometer 282H 07/28/20 15:32: Glucometer 326H 07/28/20 20:04: Glucometer 138H 07/29/20 03:15: White Blood Count 9.0, Red Blood Count 3.22L, Hemoglobin 9.6L, Hematocrit 29L, Mean Corpuscular Volume 89, Mean Corpuscular Hemoglobin 30, Mean Corpuscular Hemoglobin Concent 33, Red Cell Distribution Width 14.7H, Platelet Count 205, Mean Platelet Volume 10.4, Neutrophils (%) (Auto) 49, Lymphocytes (%) (Auto) 38, Monocytes (%) (Auto) 6, Eosinophils (%) (Auto) 7, Basophils (%) (Auto) 1, Neutrophils # (Auto) 4.4, Lymphocytes # (Auto) 3.4, Monocytes # (Auto) 0.5, Eosinophils # (Auto) 0.6H, Basophils # (Auto) 0.1, Sodium Level 136, Potassium Level 3.7, Chloride Level 110H, Carbon Dioxide Level 17L, Anion Gap 9, Blood Urea Nitrogen 16, Creatinine 1.22, Estimat Glomerular Filtration Rate 45, BUN/Creatinine Ratio 13, Glucose Level 338H, Calcium Level 7.3L Microbiology 07/27/20 C. difficile GDH Antigen & Toxins - Final, Complete 07/26/20 Urine Culture - Final, Complete NO GROWTH Patient resulted labs reviewed. Pending Labs Laboratory Tests 07/29/20 03:15: White Blood Count 9.0, Red Blood Count 3.22, Hemoglobin 9.6, Hematocrit 29, Mean Corpuscular Volume 89, Mean Corpuscular Hemoglobin 30, Mean Corpuscular Hemoglobin Concent 33, Red Cell Distribution Width 14.7, Platelet Count 205, Mean Platelet Volume 10.4, Neutrophils (%) (Auto) 49, Lymphocytes (%) (Auto) 38, Monocytes (%) (Auto) 6, Eosinophils (%) (Auto) 7, Basophils (%) (Auto) 1, Neutrophils # (Auto) 4.4, Lymphocytes # (Auto) 3.4, Monocytes # (Auto) 0.5, Eosinophils # (Auto) 0.6, Basophils # (Auto) 0.1, Sodium Level 136, Potassium Level 3.7, Chloride Level 110, Carbon Dioxide Level 17, Anion Gap 9, Blood Urea Nitrogen 16, Creatinine 1.22, Estimat Glomerular Filtration Rate 45, BUN/Creatinine Ratio 13, Glucose Level 338, Calcium Level 7.3 Imaging: Reviewed Imaging Report Discharge Home Medications: Active Scripts Active Reported Tylenol (Acetaminophen) 325 Mg Capsule 650 Mg PO Q6H PRN Atorvastatin Calcium 20 Mg Tablet 20 Mg PO HS Glucagon Emergency Kit (Glucagon,Human Recombinant) 1 Mg/Kit Soln 1 Mg INJ UD PRN Soothe Lubricant Eye Drops (Glycerin/Propylene Glycol) 1 Each Droperette 2 Drops OU PRN PRN Benadryl Allergy (Diphenhydramine HCl) 25 Mg Tablet 25-50 Mg PO Q6H PRN Melatonin 5 Mg Tablet 5 Mg PO HS Novolog Flexpen (Insulin Aspart) 300 Units/3 Ml Solution Units SC TIDAC USES PER SLIDING SCALE Eliquis (Apixaban) 5 Mg Tablet 5 Mg PO BID Tramadol HCl 50 Mg Tablet 50 Mg PO Q6H PRN Gabapentin 800 Mg Tablet 800 Mg PO DAILY Levemir Flextouch (Insulin Detemir) 100 Unit/1 Ml Insuln.pen 15 Unit SQ BID Omeprazole 20 Mg Capsule.dr 20 Mg PO DAILY Aspirin EC (Aspirin) 81 Mg Tablet.dr 81 Mg PO DAILY Gabapentin 800 Mg Tablet 1,600 Mg PO HS TAKES 2 (800MG) TABLETS Instructions to patient/family Please see electronic discharge instructions given to patient. Clinical Quality Measures DVT/VTE Risk/Contraindication: Risk Factor Score Per Nursin RFS Level Per Nursing on Admit: 3=High Problem Qualifiers (1) Diabetic ketoacidosis: Diabetes mellitus type: type 2 Diabetes mellitus complication detail: with coma Qualified Codes: E11.11 - Type 2 diabetes mellitus with ketoacidosis with coma (2) Type 2 diabetes mellitus: Diabetes mellitus skilled nursing insulin use: with skilled nursing use Diabetes mellitus complication status: with hyperosmolarity Diabetes mellitus complication detail: with coma Qualified Codes: E11.01 - Type 2 diabetes mellitus with hyperosmolarity with coma; Z79.4 - shelter (current) use of insulin GERARDO RITTER MD Jul 29, 2020 10:42
--- NOTE | 2020-07-29 10:42 | Discharge Inst-Simple/Standard ---
Discharge Inst-Standard Patient Instructions/Follow Up Plan of Care/Instructions/FU: Please continue to take your medications as written. Please follow up with Dr Greenwood next week to follow up this hospital stay. Activity as Tolerated: Yes Discharge Diet: ADA Diet Return to The Hospital For: very high or very low blood sugars, confusion, lethargy, fever, chest pain, shortness of breath, if you feel you're getting worse. GERARDO RITTER MD Jul 29, 2020 10:42
[2020-07-29] MEDS: oxyCODONE/APAP 5/325MG (PERCOCET 5) TABLET PO PRN (10:57)
[2020-07-29 11:10] VITALS: BP 185/83
--- NOTE | 2020-07-29 11:19 | Physical Therapy Progress Note ---
Therapy Progress Note Pt dressed, up ad chantal in room and hallway. States she is discharging, no voiced PT concerns. JEANNE PHILLIPS DPT Jul 29, 2020 11:19
[2020-07-30] MEDS ORDERED: lisINopril 40 MG (PRINIVIL) TABLET PO SCH (09:00)
== END 2020-07-29 11:10 | disposition home or self-care (01) | DRG 637 ==
LOC: EDUNIT# 10:32 → ER 10:33 → ICU 13:05 → 4TH 07-28 09:48
PROVIDERS: ADMIT Internal Medicine; ATTEND Internal Medicine
DX: E11.10 Type 2 diabetes mellitus with ketoacidosis without coma (principal); G93.41 Metabolic encephalopathy; N17.9 Acute kidney failure, unspecified; E87.1 Hypo-osmolality and hyponatremia; R56.9 Unspecified convulsions; D72.829 Elevated white blood cell count, unspecified; N18.9 Chronic kidney disease, unspecified; Z86.718 Personal history of other venous thrombosis and embolism
CPT/HCPCS: 36415; 51702; 70450; 71045; 80048; 80053; 80306; 81000; 82010; 82805; 82962; 83036; 83605; 83735; 84100; 84145; 84484; 85007; 85025; 85027; 87088; 87324; 87449; 93005; 96361; 96374; 96375

== ENCOUNTER → 2020-08-02 | Outpatient (CLI) | payer MEDICARE ==
--- NOTE | 2020-08-02 14:24 | Diagnostic Imaging Report ---
PROCEDURE: MR imaging cervical spine without contrast. TECHNIQUE: Multiplanar, multisequence MR imaging of the cervical spine was performed without contrast. DATE: August 02, 2020. COMPARISON: CT head and cervical spine July 22, 2020. MRI cervical spine April 25, 2008. INDICATION: 60-year-old female, neck and left arm pain. FINDINGS: The alignment of the cervical spine is grossly unremarkable. There is anterior cervical spinal fusion hardware spanning C5-C7. There is associated hardware related artifact. There is no evidence of a diffuse marrow infiltrating or replacing process. There is no identified focal concerning bone lesion. There are mild endplate degenerative related changes adjacent of the C3-C4 and C4-C5 disc spaces. There is no identified concerning focal bone lesion. The cervical disc heights are well preserved. The visualized spinal cord is unremarkable. C2-C3: There is no disc bulge. The uncovertebral and facet joints are unremarkable. There is no foraminal narrowing. There is no spinal canal stenosis. C3-C4: There is no disc bulge. The uncovertebral and facet joints are unremarkable. There is no foraminal narrowing. There is no spinal canal stenosis. C4-C5: There is a very small posterior disc osteophyte complex. There are very mild left facet degenerative changes. There is mild left foraminal narrowing. There is no high-grade spinal canal stenosis. C5-C6: There is no disc bulge. There are mild right uncovertebral degenerative changes. There is moderate right foraminal narrowing. There is no spinal canal stenosis. C6-C7: There is a left paracentral posterior disc osteophyte complex. The uncovertebral and facet joints are unremarkable. There is mild to moderate left foraminal narrowing. There is no spinal canal stenosis. C7-T1: There is a posterior disc osteophyte complex. The uncovertebral and facet joints are unremarkable. There is no high-grade foraminal narrowing. There is no spinal canal stenosis. There is a heterogeneous signal predominantly T2 hyperintense left thyroid nodule on axial image 22 measuring 1.8 cm in size. IMPRESSION: 1. Disc, uncovertebral, and facet degenerative changes of the cervical spine as described in detail level by level above. Findings are most notable at C4-C5, C5-C6, and C6-C7. 2. Anterior cervical spinal fusion hardware spanning C5-C7. 3. 1.8 cm left thyroid nodule which is stable in size since April 25, 2008 MRI cervical spine. Dictated by: Dictated on workstation # [id number]
== END ==
LOC: RAD 12:51
PROVIDERS: ATTEND Orthopaedic Surgery
DX: M47.812 Spondylosis without myelopathy or radiculopathy, cervical region (principal); M48.02 Spinal stenosis, cervical region; E04.1 Nontoxic single thyroid nodule; M25.78 Osteophyte, vertebrae; Z98.1 Arthrodesis status
CPT/HCPCS: 72141

== ENCOUNTER 2020-08-18 12:04 | Emergency (ER) | payer MEDICARE ==
[~2020-08-18] VITALS: Ht 152 cm; Wt 62.0 kg
[~2020-08-18 12:04] MED LIST changes: +PANT20TA18 PO; -PANT20TA3 PO
[2020-08-18 12:44] LABS: BASOPHILS # (AUTO) 0.1 10^3/uL (0.0-0.1); BASOPHILS % (AUTO) 1 % (0-10); EOSINOPHILS # (AUTO) 0.3 10^3/uL (0.0-0.3); EOSINOPHILS % (AUTO) 3 % (0-10); HEMATOCRIT 34 % (35-52); HEMOGLOBIN 11.6 g/dL (11.5-16.0); LYMPHOCYTES # (AUTO) 2.5 10^3/uL (1.0-4.0); LYMPHOCYTES % (AUTO) 24 % (12-44); MEAN CORPUSCULAR HEMOGLOBIN 30 pg (25-34); MEAN CORPUSCULAR HGB CONC 34 g/dL (32-36); MEAN CORPUSCULAR VOLUME 88 fL (80-99); MEAN PLATELET VOLUME 10.8 fL (9.0-12.2); MONOCYTES # (AUTO) 0.5 10^3/uL (0.0-1.0); MONOCYTES % (AUTO) 4 % (0-12); NEUTROPHILS # (AUTO) 7.1 10^3/uL (1.8-7.8); NEUTROPHILS % (AUTO) 68 % (42-75); PLATELET COUNT 232 10^3/uL (130-400); WHITE BLOOD COUNT 10.4 10^3/uL (4.3-11.0)
[2020-08-18] MEDS ORDERED: diphenhydrAMINE 50 MG/ML INJ (BENADRYL) IVP ONE (12:45)
[2020-08-18] MEDS ORDERED: fentaNYL INJECTION 100 MCG/2 ML AMP ONE (12:45)
[2020-08-18] MEDS ORDERED: PROMETHAZINE INJ 25 MG/ML (PHENERGAN) AMP IVP ONE (12:45)
[2020-08-18] MEDS ORDERED: fentaNYL INJECTION 250 MCG/5 ML AMP IVP ONE (12:45)
--- NOTE | 2020-08-18 12:47 | ED General ---
General Stated Complaint: BS OVER 600 Source of Information: Patient History of Present Illness Date Seen by Provider: Aug 18, 2020 Time Seen by Provider: 12:21 Initial Comments Patient is a 60-year-old female who presents to the emergency room today with a chief complaint of nausea vomiting diarrhea concern for diabetic ketoacidosis. Patient states that her blood sugars have been running greater than 400 since 2:00 yesterday afternoon. She states she was using a home monitor which reads up to 600 and it was also reading high. She states she has been giving herself 12 units of regular insulin every 2 hours since the onset of her symptoms. She states her last dose was at 11 AM this morning. Patient denies any blood in her vomitus or stool. She denies any fevers, chills, productive cough or URI symptoms. She denies any sick contacts. Patient is complaining of pain to her neck and spine. This per report of herself is chronic pain. She does not have pain medicines at home. Patient is also requesting medications for nausea specifically Phenergan and Benadryl. All other review of systems reviewed and negative except as stated. Timing/Duration: 24 Hours Severity: Severe Associated Systoms: Nausea/Vomiting Allergies and Home Medications Allergies Coded Allergies: ketorolac (Verified Allergy, Severe, ANAPHYLAXIS, PT TAKES ASA AT HOME, 03/06/19) ondansetron (Verified Allergy, Intermediate, RASH, 03/06/19) RASH/ HIVES scopolamine (Verified Allergy, Mild, Rash, 03/21/19) exenatide (Verified Allergy, Unknown, NAUSEA, 03/06/19) NON STOP VOMITING latex (Verified Allergy, Unknown, RASH, 03/06/19) metoclopramide (Verified Allergy, Unknown, RESTLESS LEGS, 03/06/19) erythromycin base (Verified Adverse Reaction, Unknown, 03/21/19) Home Medications Acetaminophen 325 Mg Capsule, 650 MG PO Q6H PRN for PAIN-MILD (1-4) OR TEMPATURE, (Reported) Apixaban 5 Mg Tablet, 5 MG PO BID, (Reported) Aspirin 81 Mg Tablet.dr, 81 MG PO DAILY, (Reported) Atorvastatin Calcium 20 Mg Tablet, 20 MG PO HS, (Reported) Diphenhydramine HCl 25 Mg Tablet, 25-50 MG PO Q6H PRN for ALLERGY SYMPTOMS, (Reported) Gabapentin 800 Mg Tablet, 1,600 MG PO HS, (Reported) TAKES 2 (800MG) TABLETS Gabapentin 800 Mg Tablet, 800 MG PO DAILY, (Reported) Glucagon,Human Recombinant 1 Mg/Kit Soln, 1 MG INJ UD PRN for HYPERGLYCEMIA, (Reported) Glycerin/Propylene Glycol 1 Each Droperette, 2 DROPS OU PRN PRN for DRY EYES, (Reported) Insulin Aspart 300 Units/3 Ml Solution, UNITS SC TIDAC, (Reported) USES PER SLIDING SCALE Insulin Detemir 100 Unit/1 Ml Insuln.pen, 15 UNIT SQ BID, (Reported) Melatonin 5 Mg Tablet, 5 MG PO HS, (Reported) Omeprazole 20 Mg Capsule.dr, 20 MG PO DAILY, (Reported) Promethazine HCl 25 Mg Tablet, 25 MG PO Q6H PRN for NAUSEA/VOMITING Prescribed by: RIKKI PANCHAL on 08/18/20 7202 Patient Home Medication List Home Medication List Reviewed: Yes Review of Systems Review of Systems Constitutional: no symptoms reported EENTM: no symptoms reported Respiratory: no symptoms reported Cardiovascular: no symptoms reported Gastrointestinal: diarrhea, nausea, vomiting Genitourinary: no symptoms reported : No Musculoskeletal: back pain, neck pain Skin: no symptoms reported Psychiatric/Neurological: No Symptoms Reported; Denies Numbness, Denies Paresthesia, Denies Weakness Past Unkduny-Wspthf-Vufihl Hx Patient Social History Alcohol Beverage of Choice: Wine Drug of Choice: NARCOTIC ABUSE Smoking Status: Current Everyday Smoker Type Used: Cigarettes Former Smoker, Quit: Nov 10, 2017 2nd Hand Smoke Exposure: No Recent Foreign Travel: No Contact w/Someone Who Travel: No Recent Hopitalizations: No Immunizations Up To Date Tetanus Booster (TDap): Unknown PED Vaccines UTD: No Date of Pneumonia Vaccine: Nov 06, 2019 Date of Influenza Vaccine: Nov 22, 2019 Seasonal Allergies Seasonal Allergies: Yes Past Medical History Surgeries: Yes (LITHOTRIPSY;LUMBAR SURGERY X 4;BMT'S;EGD'S WITH ESOPHAGEAL DILATIONS;) Cardiac, Coronary Stent, Ear Surgery, Gallbladder, Orthopedic, Renal Respiratory: Yes Chronic Bronchitis, Sleep Apnea Currently Using CPAP: No Currently Using BIPAP: No Cardiac: Yes (DVT'S IN ARMS; CARDIAC STENT X 1; CAROTID DISEASE;LINQ DEVICE) Chronic Edema/Swelling, Coronary Artery Disease, Deep Vein Thrombosis, High Cholesterol, Hypertension, Palpitations Neurological: Yes (NEUROPATHY IN HANDS AND FEET) Headaches /Migraines, Neuropathy 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 Disorders: No 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 Disorders: Denies 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 Sexually Transmitted Disease: No HIV/AIDS: No Genitourinary: Yes Bladder Infection, Kidney Stones, Renal Failure Gastrointestinal: Yes (GASTRITIS;ESOPH STRICTURE/DILATION;GASTROPARESIS-CHRONIC N/V/ABD PAIN;DAVID) Gastroesophageal Reflux, Diverticulosis, Esophagitis, Irritable Bowel Musculoskeletal: Yes (CHRONIC GENERALIZED PAIN;CHRONIC BILAT SHOULDER PAIN; CHRONIC NECK PAIN ) Degenerate Disk Disease, Fibromyalgia, Chronic Back Pain Endocrine: Yes (NON-COMPLAINT;MULTIPLE EPISODES OF DKA-EASILY CONTROLLED ON INSULIN IN HOSP) Diabetes, Insulin dep HEENT: Yes (GLASSES; S/P BMT'S) Chronic Ear Infection Loss of Vision: Bilateral Hearing Impairment: Hard of Hearing Cancer: No Psychosocial: Yes Anxiety Integumentary: Yes Psoriasis Blood Disorders: No Adverse Reaction/Blood Tranf: No Family Medical History Cancer of mouth 19 FATHER ( of esophogeal cancer.) Cardiovascular disease 19 MOTHER G8 BROTHER Completed stroke 19 FATHER G8 BROTHER Diabetes mellitus G8 BROTHER FH: lung cancer 19 MOTHER Hypertension 19 FATHER Kidney disease 19 FATHER Myocardial infarction 19 MOTHER G8 BROTHER Respiratory disorder No Family History of: AIDS CAD Over 55 Years Old, CVA, Diabetes, GI Disease, Renal Disease PSH: -LINQ DEVICE PLACED 11/09/19 FOR REPORTED PALPITATIONS X 6 MONTHS, SINCE PERCOCET WAS DC'D -MULTIPLE CARDIAC CATHS--STENT X 1 TO LAD 07/13/15. LAST CATH 01/18/19--NO INTERVENTION -LUMBAR SPINE FUSION X 3--12/2002, 04/2007, AND 05/2007 -LUMBAR DISCECTOMY 10/2000--? LAMINECTOMY? -CERVICAL SPINE FUSION 11/2006 -CHOLECYSTECTOMY 1983 -BMT'S -LITHOTRIPSY AND RIGHT URETERAL STENT -EGD'S WITH ESOPHAGEAL DILATIONS -COLONOSCOPIES, LAST ONE 03/08/19 -PORT RIGHT CHEST -LEFT SHOULDER ROTATOR CUFF REPAIR 05/01/20--DR. PALACIOS -CONTINUOUS GLUCOSE MONITOR PRESENT 06/25/20--LLQ OF ABDOMEN Physical Exam Vital Signs Vital Signs - First Documented 08/18/20 08/18/20 12:15 16:20 Temp 37.0 Pulse 101 Resp 18 B/P (MAP) 118/74 (89) Pulse Ox 96 Capillary Refill : Height, Weight, BMI Height: 5'1.00" Weight: 122lbs. 1.0oz. 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 Norm as Tested Skin: Normal Color, Warm/Dry Procedures/Interventions Date of ETT Placement: Dec 30, 2019 Time of ETT Placement: 0750 Progress/Results/Core Measures Suspected Sepsis SIRS Temperature: Pulse: Respiratory Rate: Laboratory Tests 08/18/20 12:25: White Blood Count 10.4 Blood Pressure / Mean: Laboratory Tests 08/18/20 12:25: Creatinine 1.39H, Platelet Count 232, Total Bilirubin 0.5 Results/Orders Lab Results Laboratory Tests Test 08/18/20 12:25 08/18/20 12:29 08/18/20 12:30 08/18/20 14:06 Range/Units White Blood Count 10.4 4.3-11.0 10^3/uL Red Blood Count 3.88 3.80-5.11 10^6/uL Hemoglobin 11.6 11.5-16.0 g/dL Hematocrit 34 L 35-52 % Mean Corpuscular Volume 88 80-99 fL Mean Corpuscular Hemoglobin 30 25-34 pg Mean Corpuscular Hemoglobin Concent 34 32-36 g/dL Red Cell Distribution Width 13.5 10.0-14.5 % Platelet Count 232 130-400 10^3/uL Mean Platelet Volume 10.8 9.0-12.2 fL Immature Granulocyte % (Auto) 0 % Neutrophils (%) (Auto) 68 42-75 % Lymphocytes (%) (Auto) 24 12-44 % Monocytes (%) (Auto) 4 0-12 % Eosinophils (%) (Auto) 3 0-10 % Basophils (%) (Auto) 1 0-10 % Neutrophils # (Auto) 7.1 1.8-7.8 10^3/uL Lymphocytes # (Auto) 2.5 1.0-4.0 10^3/uL Monocytes # (Auto) 0.5 0.0-1.0 10^3/uL Eosinophils # (Auto) 0.3 0.0-0.3 10^3/uL Basophils # (Auto) 0.1 0.0-0.1 10^3/uL Immature Granulocyte # (Auto) 0.0 0.0-0.1 10^3/uL Sodium Level 130 L 135-145 MMOL/L Potassium Level 4.9 3.6-5.0 MMOL/L Chloride Level 99 98-107 MMOL/L Carbon Dioxide Level 19 L 21-32 MMOL/L Anion Gap 12 5-14 MMOL/L Blood Urea Nitrogen 27 H 7-18 MG/DL Creatinine 1.39 H 0.60-1.30 MG/DL Estimat Glomerular Filtration Rate 39 BUN/Creatinine Ratio 19 Glucose Level 744 *H 70-105 MG/DL Calcium Level 8.8 8.5-10.1 MG/DL Corrected Calcium 9.1 8.5-10.1 MG/DL Total Bilirubin 0.5 0.1-1.0 MG/DL Aspartate Amino Transf (AST/SGOT) 11 5-34 U/L Alanine Aminotransferase (ALT/SGPT) 14 0-55 U/L Alkaline Phosphatase 94 40-136 U/L Total Protein 6.6 6.4-8.2 GM/DL Albumin 3.6 3.2-4.5 GM/DL Lipase 20 8-78 U/L Glucometer 581 *H 70-110 MG/DL Blood Gas Puncture Site PORT Blood Gas Patient Temperature 37.0 Arterial Blood pH 7.34 *L 7.37-7.43 Arterial Blood Partial Pressure CO2 44 35-45 MMHG Arterial Blood Partial Pressure O2 40 L 79-93 MMHG Arterial Blood HCO3 23 23-27 MMOL/L Arterial Blood Total CO2 24.5 21.0-31.0 MMOL/L Arterial Blood Oxygen Saturation 66 L 94-100 % Arterial Blood Base Excess -1.8 -2.5-2.5 MMOL/L Antonio Test NA Blood Gas Ventilator Setting NO Blood Gas Inspired Oxygen ROOM AIR Urine Color YELLOW Urine Clarity CLEAR Urine pH 6.5 5-9 Urine Specific Banks 1.010 L 1.016-1.022 Urine Protein 2+ H NEGATIVE Urine Glucose (UA) 3+ H NEGATIVE Urine Ketones NEGATIVE NEGATIVE Urine Nitrite NEGATIVE NEGATIVE Urine Bilirubin NEGATIVE NEGATIVE Urine Urobilinogen 0.2 < = 1.0 MG/DL Urine Leukocyte Esterase NEGATIVE NEGATIVE Urine RBC (Auto) NEGATIVE NEGATIVE Urine RBC RARE /HPF Urine WBC RARE /HPF Urine Crystals NONE /LPF Urine Bacteria TRACE /HPF Urine Casts NONE /LPF Urine Mucus NEGATIVE /LPF Urine Culture Indicated NO Test 08/18/20 14:15 08/18/20 16:08 Range/Units Glucometer 591 *H 339 H 70-110 MG/DL My Orders Orders - RIKKI PANCHAL MD Cbc With Automated Diff (08/18/20 12:31) Comprehensive Metabolic Panel (08/18/20 12:31) Lipase (08/18/20 12:31) Ed Iv/Invasive Line Start (08/18/20 12:31) Ns Iv 1000 Ml (Sodium Chloride 0.9%) (08/18/20 12:31) Promethazine Injection (Phenergan Injec (08/18/20 12:45) Diphenhydramine Injection (Benadryl Inje (08/18/20 12:45) Ua Culture If Indicated (08/18/20 12:35) Fentanyl Injection (Sublimaze Injection (08/18/20 12:45) Arterial Blood Gas (08/18/20 12:36) Fentanyl Injection (Sublimaze Injection (08/18/20 12:45) Insulin (Regular) Human (Novolin R (Per (08/18/20 13:15) Insulin (Regular) Human (Novolin R (Per (08/18/20 14:30) Medications Given in ED Current Medications Medications Dose Ordered Sig/Jackie Route Start Time Stop Time Status Last Admin Dose Admin Diphenhydramine HCl 50 mg ONCE ONCE IVP 08/18/20 12:45 08/18/20 12:46 DC 08/18/20 12:53 50 MG Fentanyl Citrate 100 mcg STK-MED ONCE .ROUTE 08/18/20 12:45 08/18/20 12:50 DC 08/18/20 12:53 25 MCG Insulin Human Regular 10 unit ONCE ONCE IV 08/18/20 13:15 08/18/20 13:34 DC 08/18/20 13:40 10 UNIT Insulin Human Regular 20 unit ONCE ONCE SC 08/18/20 14:30 08/18/20 14:31 DC 08/18/20 14:59 20 UNIT Promethazine HCl 25 mg ONCE ONCE IVP 08/18/20 12:45 08/18/20 12:46 DC 08/18/20 12:53 25 MG Vital Signs/I&O 08/18/20 08/18/20 12:15 16:20 Temp 37.0 Pulse 101 88 Resp 18 18 B/P (MAP) 118/74 (89) 112/72 (89) Pulse Ox 96 Capillary Refill : Progress Note : Time: 12:58 Progress Note 60yo female to the ER with a complaint of n/v/d since yesterday. Evaluation today includes a physical exam, basic laboratory evaluation. Patients right sided infusaport was accessed. Treated with benadryl/phenergan and a small dose of fentanyl. pAtient will be given 2 L of IV normal saline and blood sugars rechecked. 1401 resting comfortably finishing up her fluids. will recheck blood sugars once this is done. 1611 patient's blood sugar down to the 330 range. Patient is sitting up on the side of the bed and is comfortable. She has asked me for prescription for some pain medications. I did advise the patient that I would be not able to write her for chronic narcotic pain medications. She is to seek the advice and direction of her primary care doctor. Patient verbalizes understanding. At this time the patient has no concerning findings neither clinical nor objective for diabetic ketoacidosis. She has not vomited since arrival. She has been fluid resuscitated with 2 L of IV fluids. She is also been given a total of 30 units of regular insulin. She is advised clear liquids on discharge and advance diet as tolerated. I will send her home with this prescription for Phenergan. Counseling-Symptomatic: 3-10 Minutes Departure Impression Primary Impression: Chronic pain Qualified Codes: G89.29 - Other chronic pain Additional Impressions: IDDM (insulin dependent diabetes mellitus) Hyperglycemia due to diabetes mellitus Disposition: 01 HOME, SELF-CARE Condition: Stable Departure-Patient Inst. Decision time for Depature: 16:13 Referrals: CINDY CALABRESE DO (PCP/Family) Primary Care Physician Patient Instructions: Diabetes Type 1, Adult (DC), Nausea and Vomiting, Adult Add. Discharge Instructions: Be sure and drink plenty of fluids to stay well-hydrated. I have given you a prescription for Phenergan tablets. You can take 1 every 6 hours as needed for nausea and vomiting. Continue your normal home insulin routine. Start your diet today with clear liquids and slowly advance as tolerated. Please return to the emergency department for any worsening symptoms of nausea and vomiting, if you are unable to stop vomiting, fever or any other emergent concerns. Scripts Promethazine HCl (Promethazine Tablet) 25 Mg Tablet 25 MG PO Q6H PRN for NAUSEA/VOMITING, #10 TAB Prov: RIKKI PANCHAL MD 08/18/20 Copy Copies To 1: CINDY CALABRESE KATHRYN M MD Aug 18, 2020 12:47
[2020-08-18 12:51] LABS: ALBUMIN 3.6 GM/DL (3.2-4.5); POTASSIUM 4.9 MMOL/L (3.6-5.0)
[2020-08-18 12:52] LABS: CALCIUM 8.8 MG/DL (8.5-10.1)
[2020-08-18] MEDS: NS IV 1000 ML 1,000 ML IV SCH ×2 (12:52→15:06)
[2020-08-18 12:54] LABS: TOTAL PROTEIN 6.6 GM/DL (6.4-8.2)
[2020-08-18 12:56] LABS: BILIRUBIN,TOTAL 0.5 MG/DL (0.1-1.0)
[2020-08-18 12:57] LABS: CREATININE SERUM 1.39 MG/DL (0.60-1.30)
[2020-08-18 13:00] LABS: ABG BASE EXCESS -1.8 MMOL/L (-2.5-2.5); ABG OXYGEN SATURATION 66 % (94-100); ABG PCO2 44 MMHG (35-45); ABG PO2 40 MMHG (79-93); ABG TCO2 24.5 MMOL/L (21.0-31.0)
[2020-08-18 13:02] LABS: ABG PH 7.34 (7.37-7.43); INSPIRED O2 ROOM AIR; VENTILATOR NO
[2020-08-18] MEDS ORDERED: inSUlin (REGULAR) HUMAN 1 UNIT/0.01 ML (CHARGE PER UNIT) IV ONE (13:15)
[2020-08-18 14:15] LABS: BILIRUBIN,URINE NEGATIVE (NEGATIVE); CLARITY,URINE CLEAR; COLOR,URINE YELLOW; GLUCOSE, URINE (UA) 3+ (NEGATIVE); KETONES,URINE NEGATIVE (NEGATIVE); LEUKOCYTE ESTERASE ,URINE NEGATIVE (NEGATIVE); NITRITE,URINE NEGATIVE (NEGATIVE); PH,URINE 6.5 (5-9); PROTEIN,URINE 2+ (NEGATIVE)
[2020-08-18 14:21] LABS: RBC,URINE RARE /HPF
[2020-08-18 14:22] LABS: BACTERIA,URINE TRACE /HPF; WBC,URINE RARE /HPF
[2020-08-18] MEDS ORDERED: inSUlin (REGULAR) HUMAN 1 UNIT/0.01 ML (CHARGE PER UNIT) SC ONE (14:30)
[2020-08-18] MEDS ORDERED: PROM25TA14 PO (16:14)
[2020-08-18 16:20] VITALS: BP 112/72
== END 2020-08-18 16:20 | disposition home or self-care (01) ==
LOC: ER 12:04 → EDUNIT# 12:04 → ER 16:20
DX: G89.29 Other chronic pain (principal); E10.65 Type 1 diabetes mellitus with hyperglycemia; E78.00 Pure hypercholesterolemia, unspecified; K21.9 Gastro-esophageal reflux disease without esophagitis; F41.9 Anxiety disorder, unspecified; F17.210 Nicotine dependence, cigarettes, uncomplicated; Z82.49 Family history of ischemic heart disease and other diseases of the circulatory system; Z83.3 Family history of diabetes mellitus; Z80.8 Family history of malignant neoplasm of other organs or systems; Z80.1 Family history of malignant neoplasm of trachea, bronchus and lung; Z86.718 Personal history of other venous thrombosis and embolism; Z95.5 Presence of coronary angioplasty implant and graft; Z88.1 Allergy status to other antibiotic agents; Z88.8 Allergy status to other drugs, medicaments and biological substances; Z91.040 Latex allergy status; Z79.82 Long term (current) use of aspirin; Z79.01 Long term (current) use of anticoagulants
CPT/HCPCS: 36415; 80053; 81000; 82805; 82962; 83690; 85025

== ENCOUNTER 2020-08-24 02:40 | Inpatient (IN) | payer MEDICARE ==
[2020-08-24] VITALS (16 sets, daily range): BP systolic 141–197; BP diastolic 72–107
[~2020-08-24] VITALS: Ht 152.4 cm; Wt 64.3 kg
[2020-08-24] MEDS ORDERED: NS IV 1000 ML 1,000 ML IV ONE (02:51)
[2020-08-24] MEDS ORDERED: NS IV 1000 ML 1,000 ML IV SCH (02:51)
--- NOTE | 2020-08-24 03:01 | ED General ---
General Stated Complaint: BI-LATERAL LEG WEAKNESS Source of Information: Patient Exam Limitations: No Limitations History of Present Illness Date Seen by Provider: Aug 24, 2020 Time Seen by Provider: 02:45 Initial Comments Patient presents ER by EMS from home with chief complaint of blood sugars being high and generalized weakness and nausea. No fevers chills cough shortness of air or dysuria. She's had frequency of urine. She has a history of type 2 diabetes with a blood glucose wireless patch but does not have an insulin pump. She does follow with Dr. Huertas, endocrinology, Dr. Calabrese primary care and Dr. Cobb for cardiology. She has a history of stents. She's not having any chest pain. She is also been worked up recently by Dr. Patel with an MRI of her neck because she has some compressed nerves and has a referral to a surgeon who specializes in the next at [place] but she has not actually met the surgeon yet nor has she gotten an appointment. Patient's states that she had a fall earlier today. She did strike the back of her head. She is on Eliquis with a history of pulmonary embolisms. Allergies and Home Medications Allergies Coded Allergies: ketorolac (Verified Allergy, Severe, ANAPHYLAXIS, PT TAKES ASA AT HOME, 03/06/19) ondansetron (Verified Allergy, Intermediate, RASH, 03/06/19) RASH/ HIVES scopolamine (Verified Allergy, Mild, Rash, 03/21/19) exenatide (Verified Allergy, Unknown, NAUSEA, 03/06/19) NON STOP VOMITING latex (Verified Allergy, Unknown, RASH, 03/06/19) metoclopramide (Verified Allergy, Unknown, RESTLESS LEGS, 03/06/19) erythromycin base (Verified Adverse Reaction, Unknown, 03/21/19) Home Medications Acetaminophen 325 Mg Capsule, 650 MG PO Q6H PRN for PAIN-MILD (1-4) OR TEMPATURE, (Reported) Apixaban 5 Mg Tablet, 5 MG PO BID, (Reported) Aspirin 81 Mg Tablet.dr, 81 MG PO DAILY, (Reported) Atorvastatin Calcium 20 Mg Tablet, 20 MG PO HS, (Reported) Diphenhydramine HCl 25 Mg Tablet, 25-50 MG PO Q6H PRN for ALLERGY SYMPTOMS, (Reported) Gabapentin 800 Mg Tablet, 1,600 MG PO HS, (Reported) TAKES 2 (800MG) TABLETS Gabapentin 800 Mg Tablet, 800 MG PO DAILY, (Reported) Glucagon,Human Recombinant 1 Mg/Kit Soln, 1 MG INJ UD PRN for HYPERGLYCEMIA, (Reported) Glycerin/Propylene Glycol 1 Each Droperette, 2 DROPS OU PRN PRN for DRY EYES, (Reported) Insulin Aspart 300 Units/3 Ml Solution, UNITS SC TIDAC, (Reported) USES PER SLIDING SCALE Insulin Detemir 100 Unit/1 Ml Insuln.pen, 15 UNIT SQ BID, (Reported) Melatonin 5 Mg Tablet, 5 MG PO HS, (Reported) Omeprazole 20 Mg Capsule.dr, 20 MG PO DAILY, (Reported) Promethazine HCl 25 Mg Tablet, 25 MG PO Q6H PRN for NAUSEA/VOMITING Prescribed by: RIKKI PANCHAL on 08/18/20 3751 Patient Home Medication List Home Medication List Reviewed: Yes Review of Systems Review of Systems Constitutional: No chills, No fever, No malaise EENTM: No ear discharge, No ear pain Respiratory: No cough, No short of breath Cardiovascular: see HPI; No chest pain, No edema; Hx of Intervention Gastrointestinal: No abdominal pain; nausea; No vomiting Genitourinary: No discharge, No dysuria Musculoskeletal: No back pain, No joint pain; muscle weakness All Other Systems Reviewed Negative Unless Noted: Yes Past Kiullwd-Luilju-Zbqyyu Hx Patient Social History Alcohol Use: Occasionally Uses Alcohol Beverage of Choice: Wine Recreational Drug Use: No Drug of Choice: NARCOTIC ABUSE Smoking Status: Former Smoker Type Used: Cigarettes Former Smoker, Quit: Nov 10, 2017 2nd Hand Smoke Exposure: No Recent Hopitalizations: No Immunizations Up To Date Tetanus Booster (TDap): Unknown PED Vaccines UTD: No Date of Pneumonia Vaccine: Nov 06, 2019 Date of Influenza Vaccine: Nov 22, 2019 Seasonal Allergies Seasonal Allergies: Yes Past Medical History Surgeries: Yes (LITHOTRIPSY;LUMBAR SURGERY X 4;BMT'S;EGD'S WITH ESOPHAGEAL DILATIONS;) Cardiac, Coronary Stent, Ear Surgery, Gallbladder, Orthopedic, Renal Respiratory: Yes Chronic Bronchitis, Sleep Apnea Currently Using CPAP: No Currently Using BIPAP: No Cardiac: Yes (DVT'S IN ARMS; CARDIAC STENT X 1; CAROTID DISEASE;LINQ DEVICE) Chronic Edema/Swelling, Coronary Artery Disease, Deep Vein Thrombosis, High Cholesterol, Hypertension, Palpitations Neurological: Yes (NEUROPATHY IN HANDS AND FEET) Headaches /Migraines, Neuropathy 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 Disorders: No 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 Disorders: Denies LICENSED 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 History: Menopausal Sexually Transmitted Disease: No HIV/AIDS: No Genitourinary: Yes Bladder Infection, Kidney Stones, Renal Failure Gastrointestinal: Yes (GASTRITIS;ESOPH STRICTURE/DILATION;GASTROPARESIS-CHRONIC N/V/ABD PAIN;DAVID) Gastroesophageal Reflux, Diverticulosis, Esophagitis, Irritable Bowel Musculoskeletal: Yes (CHRONIC GENERALIZED PAIN;CHRONIC BILAT SHOULDER PAIN;CHRONIC NECK PAIN ) Degenerate Disk Disease, Fibromyalgia, Chronic Back Pain Endocrine: Yes (NON-COMPLAINT;MULTIPLE EPISODES OF DKA-EASILY CONTROLLED ON INSULIN IN HOSP) Diabetes, Insulin dep HEENT: Yes (GLASSES; S/P BMT'S) Chronic Ear Infection Loss of Vision: Bilateral Hearing Impairment: Hard of Hearing Cancer: No Psychosocial: Yes Anxiety Integumentary: Yes Psoriasis Blood Disorders: No Adverse Reaction/Blood Tranf: No Family Medical History Cancer of mouth 19 FATHER ( of esophogeal cancer.) Cardiovascular disease 19 MOTHER G8 BROTHER Completed stroke 19 FATHER G8 BROTHER Diabetes mellitus G8 BROTHER FH: lung cancer 19 MOTHER Hypertension 19 FATHER Kidney disease 19 FATHER Myocardial infarction 19 MOTHER G8 BROTHER Respiratory disorder No Family History of: AIDS CAD Over 55 Years Old, CVA, Diabetes, GI Disease, Renal Disease PSH: -LINQ DEVICE PLACED 11/09/19 FOR REPORTED PALPITATIONS X 6 MONTHS, SINCE PERCOCET WAS DC'D -MULTIPLE CARDIAC CATHS--STENT X 1 TO LAD 07/13/15. LAST CATH 01/18/19--NO INTERVENTION -LUMBAR SPINE FUSION X 3--12/2002, 04/2007, AND 05/2007 -LUMBAR DISCECTOMY 10/2000--? LAMINECTOMY? -CERVICAL SPINE FUSION 11/2006 -CHOLECYSTECTOMY 1983 -BMT'S -LITHOTRIPSY AND RIGHT URETERAL STENT -EGD'S WITH ESOPHAGEAL DILATIONS -COLONOSCOPIES, LAST ONE 03/08/19 -PORT RIGHT CHEST -LEFT SHOULDER ROTATOR CUFF REPAIR 05/01/20--DR. PATEL -CONTINUOUS GLUCOSE MONITOR PRESENT 06/25/20--LLQ OF ABDOMEN Physical Exam Vital Signs Capillary Refill : Height, Weight, BMI Height: 5'1.00" Weight: 122lbs. 1.0oz. [id number]; 26.00 BMI Method:Estimated General Appearance: WD/WN, Anxious, Mild Distress Eyes: Bilateral Eye Normal Inspection, Bilateral Eye PERRL, Bilateral Eye EOMI HEENT: PERRL/EOMI, Pharynx Normal; No Moist Mucous Membranes Neck: Full Range of Motion, Normal Inspection Respiratory: Chest Non Tender, Lungs Clear, Normal Breath Sounds, No Accessory Muscle Use, No Respiratory Distress Cardiovascular: Regular Rate, Rhythm, No Edema, Normal Peripheral Pulses Gastrointestinal: Non Tender, Soft Extremity: Normal Capillary Refill, Normal Inspection, Other (minor abrasion anterior right knee with full range of motion. Tenderness to the lateral malleolus of the right ankle) Neurologic/Psychiatric: Alert, Oriented x3, No Motor/Sensory Deficits Skin: Normal Color, Warm/Dry Procedures/Interventions Date of ETT Placement: Dec 30, 2019 Time of ETT Placement: 075 Progress/Results/Core Measures Suspected Sepsis SIRS Temperature: Pulse: Respiratory Rate: Laboratory Tests 08/24/20 03:10: White Blood Count 8.3 Blood Pressure / Mean: Laboratory Tests 08/24/20 03:10: Creatinine 1.51H, Platelet Count 219, Total Bilirubin 0.2 Results/Orders Lab Results Laboratory Tests Test 08/24/20 02:46 08/24/20 02:55 08/24/20 03:10 08/24/20 03:40 Range/Units Glucometer > 600 *H 70-110 MG/DL Urine Color YELLOW Urine Clarity CLEAR Urine pH 7.0 5-9 Urine Specific [place] 1.010 L 1.016-1.022 Urine Protein 2+ H NEGATIVE Urine Glucose (UA) 3+ H NEGATIVE Urine Ketones NEGATIVE NEGATIVE Urine Nitrite NEGATIVE NEGATIVE Urine Bilirubin NEGATIVE NEGATIVE Urine Urobilinogen 0.2 < = 1.0 MG/DL Urine Leukocyte Esterase NEGATIVE NEGATIVE Urine RBC (Auto) TRACE-I NEGATIVE Urine RBC 2-5 H /HPF Urine WBC NONE /HPF Urine Squamous Epithelial Cells 2-5 /HPF Urine Crystals NONE /LPF Urine Bacteria NEGATIVE /HPF Urine Casts NONE /LPF Urine Mucus NEGATIVE /LPF Urine Culture Indicated NO White Blood Count 8.3 4.3-11.0 10^3/uL Red Blood Count 3.59 L 3.80-5.11 10^6/uL Hemoglobin 10.7 L 11.5-16.0 g/dL Hematocrit 32 L 35-52 % Mean Corpuscular Volume 89 80-99 fL Mean Corpuscular Hemoglobin 30 25-34 pg Mean Corpuscular Hemoglobin Concent 33 32-36 g/dL Red Cell Distribution Width 13.8 10.0-14.5 % Platelet Count 219 130-400 10^3/uL Mean Platelet Volume 10.7 9.0-12.2 fL Immature Granulocyte % (Auto) 0 % Neutrophils (%) (Auto) 45 42-75 % Lymphocytes (%) (Auto) 43 12-44 % Monocytes (%) (Auto) 6 0-12 % Eosinophils (%) (Auto) 5 0-10 % Basophils (%) (Auto) 1 0-10 % Neutrophils # (Auto) 3.8 1.8-7.8 10^3/uL Lymphocytes # (Auto) 3.6 1.0-4.0 10^3/uL Monocytes # (Auto) 0.5 0.0-1.0 10^3/uL Eosinophils # (Auto) 0.4 H 0.0-0.3 10^3/uL Basophils # (Auto) 0.1 0.0-0.1 10^3/uL Immature Granulocyte # (Auto) 0.0 0.0-0.1 10^3/uL Sodium Level 129 L 135-145 MMOL/L Potassium Level 4.6 3.6-5.0 MMOL/L Chloride Level 101 98-107 MMOL/L Carbon Dioxide Level 18 L 21-32 MMOL/L Anion Gap 10 5-14 MMOL/L Blood Urea Nitrogen 20 H 7-18 MG/DL Creatinine 1.51 H 0.60-1.30 MG/DL Estimat Glomerular Filtration Rate 35 BUN/Creatinine Ratio 13 Glucose Level 750 *H 70-105 MG/DL Calcium Level 8.1 L 8.5-10.1 MG/DL Corrected Calcium 8.6 8.5-10.1 MG/DL Magnesium Level 1.6 1.6-2.4 MG/DL Total Bilirubin 0.2 0.1-1.0 MG/DL Aspartate Amino Transf (AST/SGOT) 9 5-34 U/L Alanine Aminotransferase (ALT/SGPT) 9 0-55 U/L Alkaline Phosphatase 99 40-136 U/L Troponin I < 0.028 <0.028 NG/ML Total Protein 6.1 L 6.4-8.2 GM/DL Albumin 3.4 3.2-4.5 GM/DL Blood Gas Puncture Site RT RAD Blood Gas Patient Temperature 36.3 Arterial Blood pH 7.35 L 7.37-7.43 Arterial Blood Partial Pressure CO2 37 35-45 MMHG Arterial Blood Partial Pressure O2 88 79-93 MMHG Arterial Blood HCO3 20 L 23-27 MMOL/L Arterial Blood Total CO2 21.4 21.0-31.0 MMOL/L Arterial Blood Oxygen Saturation 97 94-100 % Arterial Blood Base Excess -4.5 L -2.5-2.5 MMOL/L Antonio Test UNK Blood Gas Ventilator Setting NA Blood Gas Inspired Oxygen UNK My Orders Orders - LATANYA HOLLINGSWORTH Ct Head/Cervical Spine Wo (08/24/20 02:51) Ankle, Right, 3 Views (08/24/20 02:51) Ed Iv/Invasive Line Start (08/24/20 02:51) Ns Iv 1000 Ml (Sodium Chloride 0.9%) (08/24/20 02:51) Ns Iv 1000 Ml (Sodium Chloride 0.9%) (08/24/20 02:51) Cbc With Automated Diff (08/24/20 02:51) Comprehensive Metabolic Panel (08/24/20 02:51) Arterial Blood Gas (08/24/20 02:51) Accucheck Stat ONCE (08/24/20 02:51) Magnesium (08/24/20 02:51) Promethazine Injection (Phenergan Injec (08/24/20 03:15) Continuous Ekg Monitoring (08/24/20 03:01) Ekg Tracing (08/24/20 03:01) Troponin I (08/24/20 03:01) Catheter(Urinary) Insert & Ass 03,15 (08/24/20 03:02) Ua Culture If Indicated (08/24/20 03:58) Diphenhydramine Injection (Benadryl Inje (08/24/20 04:15) Hydrocodone/Apap 5/325 Tablet (Lortab 5 (08/24/20 04:15) Medications Given in ED Current Medications Medications Dose Ordered Sig/Jackie Route Start Time Stop Time Status Last Admin Dose Admin Sodium Chloride 1,000 ml @ 0 mls/hr Q0M ONCE IV 08/24/20 02:51 08/24/20 02:56 DC 08/24/20 03:51 999 MLS/HR Vital Signs/I&O Capillary Refill : Progress Note #1: Time: 03:00 Progress Note 2 L of fluid, EKG troponin, CBC CMP. Suspect diabetic ketoacidosis. Vince. CT of the head and C-spine because she had a fall on Eliquis. X-ray of her right ankle. Progress Note #2: Time: 04:33 Progress Note We suspect the patient's fall might be related to her cervical spine by pathology versus NPH. She does not have ketosis or a gap but she does have hyperosmolar hyperglycemia. Plan to give her 5 units or regular insulin IV and place her inpatient. The patient is being admitted for her hyperglycemia not for her fall. This is not a trauma related admission. This is a medical admission and therefore she will be admitted to the medicine team. ECG Initial ECG Impression Date: Aug 24, 2020 Initial ECG Impression Time: 03:29 Initial ECG Rate: 75 Initial ECG Rhythm: Normal Sinus Initial ECG Intervals: Normal Initial ECG Impression: Normal, Nonspecific Changes Comment Normal sinus rhythm without clinically relevant ST elevation or depression. Diagnostic Imaging Diagonstic Imaging: Xray Plain Films/CT/US/NM/MRI: ankle (right) Comments No acute osseous abnormalities Reviewed: Reviewed by Me Diagonstic Imaging: CT Plain Films/CT/US/NM/MRI: c-spine, head Comments No acute osseous abnormality. No intracranial bleeds, mass effect, tumor or midline shift. Cannot exclude normal pressure hydrocephalus. Reviewed: Reviewed Night [facility] Study, Reviewed by Me Departure Impression Primary Impression: Fall Qualified Codes: W19.XXXA - Unspecified fall, initial encounter Additional Impression: Hyperglycemia due to type 2 diabetes mellitus Qualified Codes: E11.65 - Type 2 diabetes mellitus with hyperglycemia; Z79.4 - bed bug exterminator (current) use of insulin Disposition: ADMITTED INPATIENT Condition: Stable Admissions Decision to Admit Reason: Admit from ER (General) Decision to Admit/Date: Aug 24, 2020 Time/Decision to Admit Time: 03:59 Departure-Patient Inst. Referrals: CINDY CALABRESE DO (PCP/Family) Primary Care Physician LATANYA HOLLINGSWORTH Aug 24, 2020 03:01
[2020-08-24] MEDS ORDERED: PROMETHAZINE INJ 25 MG/ML (PHENERGAN) AMP IVP ONE (03:15)
[2020-08-24 03:20] LABS: BASOPHILS # (AUTO) 0.1 10^3/uL (0.0-0.1); BASOPHILS % (AUTO) 1 % (0-10); EOSINOPHILS # (AUTO) 0.4 10^3/uL (0.0-0.3); EOSINOPHILS % (AUTO) 5 % (0-10); HEMATOCRIT 32 % (35-52); HEMOGLOBIN 10.7 g/dL (11.5-16.0); LYMPHOCYTES # (AUTO) 3.6 10^3/uL (1.0-4.0); LYMPHOCYTES % (AUTO) 43 % (12-44); MEAN CORPUSCULAR HEMOGLOBIN 30 pg (25-34); MEAN CORPUSCULAR HGB CONC 33 g/dL (32-36); MEAN CORPUSCULAR VOLUME 89 fL (80-99); MEAN PLATELET VOLUME 10.7 fL (9.0-12.2); MONOCYTES # (AUTO) 0.5 10^3/uL (0.0-1.0); MONOCYTES % (AUTO) 6 % (0-12); NEUTROPHILS # (AUTO) 3.8 10^3/uL (1.8-7.8); NEUTROPHILS % (AUTO) 45 % (42-75); PLATELET COUNT 219 10^3/uL (130-400); WHITE BLOOD COUNT 8.3 10^3/uL (4.3-11.0)
[2020-08-24 03:30] LABS: ALBUMIN 3.4 GM/DL (3.2-4.5); CHLORIDE 101 MMOL/L (98-107); POTASSIUM 4.6 MMOL/L (3.6-5.0); SODIUM 129 MMOL/L (135-145)
[2020-08-24 03:31] LABS: CALCIUM 8.1 MG/DL (8.5-10.1)
[2020-08-24 03:33] LABS: TOTAL PROTEIN 6.1 GM/DL (6.4-8.2)
[2020-08-24 03:34] LABS: BILIRUBIN,TOTAL 0.2 MG/DL (0.1-1.0); CARBON DIOXIDE 18 MMOL/L (21-32)
[2020-08-24 03:36] LABS: ALKALINE PHOSPHATASE 99 U/L (40-136); CREATININE SERUM 1.51 MG/DL (0.60-1.30); GFR ESTIMATED 35
[2020-08-24 03:37] LABS: BUN/CREATININE RATIO 13
[2020-08-24 03:39] LABS: ALANINE AMINOTRANSFERASE 9 U/L (0-55); MAGNESIUM 1.6 MG/DL (1.6-2.4)
[2020-08-24 03:52] LABS: ABG BASE EXCESS -4.5 MMOL/L (-2.5-2.5); ABG OXYGEN SATURATION 97 % (94-100); ABG PCO2 37 MMHG (35-45); ABG PH 7.35 (7.37-7.43); ABG PO2 88 MMHG (79-93); ABG TCO2 21.4 MMOL/L (21.0-31.0)
[2020-08-24 03:53] LABS: PATIENT TEMP 36.3
[2020-08-24 03:54] LABS: GLUCOSE 750 MG/DL (70-105)
[2020-08-24 04:04] LABS: BILIRUBIN,URINE NEGATIVE (NEGATIVE); CLARITY,URINE CLEAR; COLOR,URINE YELLOW; GLUCOSE, URINE (UA) 3+ (NEGATIVE); KETONES,URINE NEGATIVE (NEGATIVE); LEUKOCYTE ESTERASE ,URINE NEGATIVE (NEGATIVE); NITRITE,URINE NEGATIVE (NEGATIVE); PROTEIN,URINE 2+ (NEGATIVE)
[2020-08-24] MEDS ORDERED: diphenhydrAMINE 50 MG/ML INJ (BENADRYL) IVP ONE (04:15)
[2020-08-24] MEDS ORDERED: HYDROcodone/APAP 5 MG/325 MG (LORTAB) TAB PO ONE (04:15)
[2020-08-24 04:20] LABS: BACTERIA,URINE NEGATIVE /HPF
[2020-08-24] MEDS ORDERED: inSUlin (REGULAR) HUMAN 1 UNIT/0.01 ML (CHARGE PER UNIT) SC ONE (05:00)
[2020-08-24] MEDS ORDERED: fentaNYL INJECTION 100 MCG/2 ML AMP IVP ONE (05:30)
--- NOTE | 2020-08-24 07:13 | Diagnostic Imaging Report ---
INDICATION: Pain after fall 3 views were obtained FINDINGS: The alignment is normal. The plafond and talar dome intact. Ankle mortise is symmetric. No fracture or dislocation. IMPRESSION: No acute fracture or dislocation Dictated by: Dictated on workstation # [id number]
--- NOTE | 2020-08-24 07:31 | Diagnostic Imaging Report ---
PROCEDURE: CT head and CT cervical spine without contrast. TECHNIQUE: Multiple contiguous axial images were obtained through the brain and cervical spine without the use of intravenous contrast. Sagittal and coronal reformations through the cervical spine were then performed. Auto Exposure Controls were utilized during the CT exam to meet ALARA standards for radiation dose reduction. INDICATION: Head and neck pain after fall. FINDINGS: There is mild prominence of the ventricles and sulci. There is no hydrocephalus. There is no midline shift. There is no mass, hemorrhage or extra-axial fluid collection. Calvarium is intact. Sinuses and mastoid air cells are clear. There are postsurgical changes of an anterior surgical fusion from C5 to C7. There is multilevel degenerative disc disease. There is no fracture or traumatic subluxation. Odontoid is intact and the lateral masses are well aligned. Prevertebral soft tissues are within normal limits. IMPRESSION: No acute intracranial abnormality. Moderate cervical spondylosis and postsurgical changes as described without acute fracture or traumatic subluxation in the cervical spine. Dictated by: Dictated on workstation # [id number]
[2020-08-24] MEDS ORDERED: ACETAMINOPHEN 325 MG TABLET PO PRN (08:00)
[2020-08-24] MEDS ORDERED: 1/2 NS IV SOLUTION 1,000 ML IV SCH (08:00)
[2020-08-24] MEDS ORDERED: NORMAL SALINE IV SCH (08:15)
[2020-08-24] MEDS ORDERED: INSULIN HUMAN IV SCH (08:15)
[2020-08-24] MEDS: fentaNYL INJECTION 100 MCG/2 ML AMP IV PRN ×4 (08:25→22:03)
[2020-08-24] MEDS: PROMETHAZINE INJ 25 MG/ML (PHENERGAN) AMP IV PRN ×3 (08:25→20:51)
[2020-08-24] MEDS: diphenhydrAMINE 50 MG/ML INJ (BENADRYL) IV PRN ×3 (08:26→20:51)
[2020-08-24] MEDS ORDERED: inSUlin REGULAR 100 UNITS/100 ML DRIP (Premix) IV SCH (08:30)
[2020-08-24] MEDS: D5 1/2 NS 1000 ML IV SOLUTION 1,000 ML IV SCH ×2 (10:35→19:31)
[2020-08-24] MEDS: POTASSIUM CL 10MEQ/50ML IVPB 50 ML IV SCH ×8 (10:35→20:55)
[2020-08-24] MEDS: 1/2 NS IV SOLUTION 1,000 ML IV SCH ×4 (10:52→22:07)
--- NOTE | 2020-08-24 13:57 | History & Physical-Hospitalist ---
History of Present Illness HPI/Chief Complaint Itzel Urbano is a 60-year-old female with poorly controlled insulin-dependent diabetes mellitus who presented with weakness. She reports that she had a fall at home. She says that her legs are weak and she also says she has some numbness and tingling. She says she had an MRI of her cervical spine as an outpatient and is following up with Dr. Patel. She says that her blood sugars have been good. She says she has been taking her insulin. She denies any fevers or chills. She denies any shortness of breath or cough. She is having some abdominal pain. She denies any nausea or vomiting. She has no other com plaints or concerns. Source: patient Exam Limitations: no limitations Date Seen 08/24/20 Time Seen by a Provider: 08:50 Attending Physician Lulu Bradshaw MD PCP Gerardo Greenwood DO Referring Physician Date of Admission Aug 24, 2020 at 04:45 Home Medications & Allergies Home Medications Reviewed patient Home Medication Reconciliation performed by pharmacy medication reconciliations manufacturing quality technician and/or nursing. Patients Allergies have been reviewed. Allergies Allergies Coded Allergies ketorolac (Verified Allergy, Severe, ANAPHYLAXIS, PT TAKES ASA AT HOME, 03/06/19) ondansetron (Verified Allergy, Intermediate, RASH, 03/06/19) RASH/ HIVES scopolamine (Verified Allergy, Mild, Rash, 03/21/19) exenatide (Verified Allergy, Unknown, NAUSEA, 03/06/19) NON STOP VOMITING latex (Verified Allergy, Unknown, RASH, 03/06/19) metoclopramide (Verified Allergy, Unknown, RESTLESS LEGS, 03/06/19) erythromycin base (Verified Adverse Reaction, Unknown, 03/21/19) Past Swwfqqz-Tekcnj-Bukdyo Hx Past Med/Social Hx: Reviewed Nursing Past Med/Soc Hx Patient Social History Alcohol Use: Occasionally Uses Alcohol Beverage of Choice: Wine Recreational Drug Use: No Drug of Choice: NARCOTIC ABUSE Smoking Status: Current Everyday Smoker Former Smoker, Quit: Nov 10, 2017 Type Used: Cigarettes 2nd Hand Smoke Exposure: No Recent Foreign Travel: No Contact w/other who traveled: No Recent Hopitalizations: Yes Recent Infectious Disease Expo: No Immunizations Up To Date Tetanus Booster (TDap): Unknown Pediatric: No Date of Pneumonia Vaccine: Nov 06, 2019 Date of Influenza Vaccine: Nov 22, 2019 Seasonal Allergies Seasonal Allergies: Yes Past Medical History Surgeries: Cardiac, Coronary Stent, Ear Surgery, Gallbladder, Orthopedic, Renal Respiratory: Asthma Currently Using CPAP: No Currently Using BIPAP: No Cardiac: Chronic Edema/Swelling, Coronary Artery Disease, Deep Vein Thrombosis, High Cholesterol, Hypertension, Palpitations Neurological: Headaches /Migraines, Neuropathy 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: No Sexually Transmitted Disease: No HIV/AIDS: No 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 Disorders: Denies Menopausal Genitourinary: Bladder Infection, Kidney Stones, Renal Failure Gastrointestinal: Gastroesophageal Reflux, Diverticulosis, Esophagitis, Irritable Bowel Musculoskeletal: Degenerate Disk Disease, Fibromyalgia, Chronic Back Pain Endocrine: Diabetes, Insulin dep HEENT: Chronic Ear Infection Loss of Vision: Bilateral Hearing Impairment: Hard of Hearing Psychosocial: Anxiety Skin/Integumentary: Psoriasis History of Blood Disorders: No Adverse Reaction to Blood Green: No Family History Cancer of mouth 19 FATHER ( of esophogeal cancer.) Cardiovascular disease 19 MOTHER G8 BROTHER Completed stroke 19 FATHER G8 BROTHER Diabetes mellitus G8 BROTHER FH: lung cancer 19 MOTHER Hypertension 19 FATHER Kidney disease 19 FATHER Myocardial infarction 19 MOTHER G8 BROTHER Respiratory disorder No Family History of: AIDS CAD Over 55 Years Old, CVA, Diabetes, GI Disease, Renal Disease PSH: -LINQ DEVICE PLACED 11/09/19 FOR REPORTED PALPITATIONS X 6 MONTHS, SINCE PERCOCET WAS DC'D -MULTIPLE CARDIAC CATHS--STENT X 1 TO LAD 07/13/15. LAST CATH 01/18/19--NO INTERVENTION -LUMBAR SPINE FUSION X 3--12/2002, 04/2007, AND 05/2007 -LUMBAR DISCECTOMY 10/2000--? LAMINECTOMY? -CERVICAL SPINE FUSION 11/2006 -CHOLECYSTECTOMY 1984 -BMT'S -LITHOTRIPSY AND RIGHT URETERAL STENT -EGD'S WITH ESOPHAGEAL DILATIONS -COLONOSCOPIES, LAST ONE 03/08/19 -PORT RIGHT CHEST -LEFT SHOULDER ROTATOR CUFF REPAIR 05/01/20--DR. PATEL -CONTINUOUS GLUCOSE MONITOR PRESENT 06/25/20--LLQ OF ABDOMEN Review of Systems Constitutional: weakness EENTM: no symptoms reported Respiratory: no symptoms reported Cardiovascular: no symptoms reported Gastrointestinal: abdominal pain Genitourinary: no symptoms reported Musculoskeletal: no symptoms reported Skin: no symptoms reported Psychiatric/Neurological: No Symptoms Reported Physical Exam Physical Exam Vital Signs Vital Signs - First Documented 08/24/20 02:40 Temp 36.7 Pulse 76 Resp 18 B/P (MAP) 159/100 (119) Pulse Ox 100 O2 Delivery Room Air Capillary Refill : Less Than 3 Seconds Height, Weight, BMI Height: 5'1.00" Weight: 122lbs. 1.0oz. 55.080967ev; 27.64 BMI Method:Estimated General Appearance: No Apparent Distress, WD/WN HEENT: PERRL/EOMI, Pharynx Normal Neck: Normal Inspection, Supple Respiratory: Lungs Clear, Normal Breath Sounds, No Respiratory Distress Cardiovascular: Regular Rate, Rhythm, No Edema, No Murmur Gastrointestinal: Normal Bowel Sounds, Soft, Tenderness (diffuse) Extremity: Normal Inspection, Non Tender, No Pedal Edema Neurologic/Psychiatric: Alert, Oriented x3, No Motor/Sensory Deficits, Normal Mood/Affect Skin: Normal Color, Warm/Dry Results Results/Procedures Labs Laboratory Tests 08/24/20 03:10 Patient resulted labs reviewed. Imaging: Reviewed Imaging Report Assessment/Plan Admission Diagnosis Type 2 diabetes mellitus with hyperglycemia and likely hyperosmolar hyperglycemic state Admission Status: Inpatient Order (span 2 midnights) Reason for Inpatient Admission: HHS requiring IV insulin Assessment and Plan Type 2 diabetes mellitus with hyperglycemia and likely hyperosmolar hyperglycemic state Acute kidney injury Blood sugars 750 on arrival Creatinine mildly elevated 1.5 from baseline ~1 no evidence of infection; afebrile, no leukocytosis, UA normal serum osmolality pending Beta hydroxybutyrate negative No anion gap elevation Started on insulin GTT IV fluids Fall imaging negative for acute abnormalities PT/OT History of DVT Chronic anticoagulation GERD HLD Peripheral neuropathy due to diabetes Continue home meds DVT Prophylaxis: already receiving therapeutic anticoagulation Diagnosis/Problems Diagnosis/Problems (1) T2DM (type 2 diabetes mellitus) Status: Acute Qualifiers: Diabetes mellitus hedis registered nurse rn insulin use: with correction use Diabetes mellitus complication status: with hyperglycemia Qualified Codes: E11.65 - Type 2 diabetes mellitus with hyperglycemia; Z79.4 - pediatric physical therapy assistant (current) use of insulin (2) Acute kidney injury Status: Resolved Resolution Date/Time: 06/16/20 @ 14:06 (3) Fall Status: Acute Qualifiers: Encounter type: initial encounter Qualified Codes: W19.XXXA - Unspecified fall, initial encounter (4) Insomnia Status: Chronic (5) Hyponatremia Status: Acute (6) Peripheral neuropathy Status: Chronic (7) Medical non-compliance Status: Chronic (8) HLD (hyperlipidemia) Status: Chronic (9) GERD (gastroesophageal reflux disease) Status: Chronic Clinical Quality Measures DVT/VTE Risk/Contraindication: Risk Factor Score Per Nursin RFS Level Per Nursing on Admit: 2=Moderate Smoking Cessation Counseling: Counseling-Symptomatic: 3-10 Minutes LULU BRADSHAW MD Aug 24, 2020 13:57
[2020-08-24] MEDS ORDERED: ONDANSETRON 4 MG/2 ML (SDV) Z0FRAN IV PRN (14:15)
[2020-08-24] MEDS ORDERED: BISACODYL 10 MG SUPP (DULCOLAX) PR PRN (14:15)
[2020-08-24] MEDS ORDERED: MELATONIN 3 MG TABLET PO PRN (14:15)
[2020-08-24] MEDS ORDERED: polyethylene glycoL POWDER 17 GM (MIRALAX) PACK PO PRN (14:15)
[2020-08-24] MEDS ORDERED: ONDANSETRON 4 MG (ZOFRAN) ORAL DISSOLVE TAB PO PRN (14:15)
[2020-08-24] MEDS ORDERED: ANTACID SUSP 30 ML UDC (MYLANTA) PO PRN (14:15)
[2020-08-24] MEDS ORDERED: RT-ALBUTEROL SULF 2.5 MG/3 ML PRE-MIX VIAL INH PRN (15:15)
[2020-08-24] MEDS ORDERED: DIPHENOXYLATE/ATROPINE 2.5MG/0.025MG (LOMOTIL) TAB PO PRN (17:00)
[2020-08-24] MEDS ORDERED: DIPHENOXYLATE/ATROPINE 2.5MG/0.025MG (LOMOTIL) TAB ONE (18:26)
[2020-08-24 18:56] LABS: CHLORIDE 115 MMOL/L (98-107); SODIUM 137 MMOL/L (135-145)
[2020-08-24 18:57] LABS: CALCIUM 7.1 MG/DL (8.5-10.1)
[2020-08-24 18:58] LABS: GLUCOSE 241 MG/DL (70-105)
[2020-08-24 18:59] LABS: CARBON DIOXIDE 16 MMOL/L (21-32)
[2020-08-24 19:02] LABS: CREATININE SERUM 0.76 MG/DL (0.60-1.30); GFR ESTIMATED > 60
[2020-08-24 19:03] LABS: BUN/CREATININE RATIO 14
[2020-08-24] MEDS: GABAPENTIN 400 MG (NEURONTIN) CAP PO SCH (20:51)
[2020-08-24] MEDS: APIXABAN 5 MG (ELIQUIS) TABLET PO SCH (20:51)
[2020-08-24] MEDS: SENNOSIDES 8.6 MG (SENOKOT) TAB PO SCH (20:52)
[2020-08-24] MEDS: DOCUSATE SODIUM 100 MG (COLACE) CAP PO SCH (20:52)
[2020-08-24] MEDS ORDERED: amLODIPine 10 MG (NORVASC) TAB ONE (21:54)
[2020-08-24] MEDS: amLODIPine 10 MG (NORVASC) TAB PO SCH (22:03)
--- NOTE | 2020-08-24 22:05 | NUR ---
SPOKE TO EICU ABOUT AMLODIPINE DOSE ORDERS FOR PT IN THE AM. CLARIFIED ORDERS, WANTS MEDICATION STARTED TONIGHT. AM DOSE GIVEN EARLY PER EICU DOCTOR.
[2020-08-24 22:39] LABS: CHLORIDE 115 MMOL/L (98-107); POTASSIUM 3.9 MMOL/L (3.6-5.0); SODIUM 142 MMOL/L (135-145)
[2020-08-24 22:40] LABS: GLUCOSE 92 MG/DL (70-105)
[2020-08-24 22:42] LABS: CARBON DIOXIDE 18 MMOL/L (21-32)
[2020-08-24 22:44] LABS: CREATININE SERUM 0.73 MG/DL (0.60-1.30); GFR ESTIMATED > 60
[2020-08-24 22:45] LABS: BUN/CREATININE RATIO 12
[2020-08-25] VITALS (24 sets, daily range): BP systolic 109–180; BP diastolic 58–97
[2020-08-25] MEDS: D5 1/2 NS 1000 ML IV SOLUTION 1,000 ML IV SCH ×3 (00:03→08:30)
[2020-08-25] MEDS: POTASSIUM CL 10MEQ/50ML IVPB 50 ML IV SCH ×4 (00:04→08:30)
[2020-08-25] MEDS: 1/2 NS IV SOLUTION 1,000 ML IV SCH ×3 (02:18→10:11)
[2020-08-25 02:45] LABS: BASOPHILS # (AUTO) 0.1 10^3/uL (0.0-0.1); BASOPHILS % (AUTO) 1 % (0-10); EOSINOPHILS # (AUTO) 0.6 10^3/uL (0.0-0.3); EOSINOPHILS % (AUTO) 6 % (0-10); HEMATOCRIT 32 % (35-52); HEMOGLOBIN 10.8 g/dL (11.5-16.0); LYMPHOCYTES # (AUTO) 3.8 10^3/uL (1.0-4.0); LYMPHOCYTES % (AUTO) 36 % (12-44); MEAN CORPUSCULAR HEMOGLOBIN 30 pg (25-34); MEAN CORPUSCULAR HGB CONC 34 g/dL (32-36); MEAN CORPUSCULAR VOLUME 88 fL (80-99); MEAN PLATELET VOLUME 10.3 fL (9.0-12.2); MONOCYTES # (AUTO) 0.6 10^3/uL (0.0-1.0); MONOCYTES % (AUTO) 6 % (0-12); NEUTROPHILS # (AUTO) 5.4 10^3/uL (1.8-7.8); NEUTROPHILS % (AUTO) 52 % (42-75); PLATELET COUNT 223 10^3/uL (130-400); WHITE BLOOD COUNT 10.4 10^3/uL (4.3-11.0)
[2020-08-25 02:52] LABS: CHLORIDE 114 MMOL/L (98-107); SODIUM 138 MMOL/L (135-145)
[2020-08-25 02:53] LABS: CALCIUM 7.9 MG/DL (8.5-10.1)
[2020-08-25 02:54] LABS: GLUCOSE 91 MG/DL (70-105)
[2020-08-25 02:55] LABS: CARBON DIOXIDE 19 MMOL/L (21-32)
[2020-08-25 02:57] LABS: CREATININE SERUM 0.73 MG/DL (0.60-1.30); GFR ESTIMATED > 60; PHOSPHORUS 2.4 MG/DL (2.3-4.7)
[2020-08-25 02:58] LABS: BUN/CREATININE RATIO 11
[2020-08-25 03:00] LABS: MAGNESIUM 1.2 MG/DL (1.6-2.4)
[2020-08-25] MEDS: diphenhydrAMINE 50 MG/ML INJ (BENADRYL) IV PRN ×4 (03:02→22:41)
[2020-08-25] MEDS: PROMETHAZINE INJ 25 MG/ML (PHENERGAN) AMP IV PRN ×4 (03:02→22:41)
[2020-08-25] MEDS: fentaNYL INJECTION 100 MCG/2 ML AMP IV PRN ×5 (04:05→21:31)
[2020-08-25] MEDS ORDERED: KCL 20 MEQ TAB (K-DUR) PO SCH (06:00)
[2020-08-25] MEDS ORDERED: MAGNESIUM 1 GM/100 ML IVPB 100 ML IV SCH (06:00)
[2020-08-25] MEDS: MAGNESIUM 1 GM/100 ML IVPB 100 ML IV SCH ×2 (07:00→07:01)
--- NOTE | 2020-08-25 08:15 | Diagnostic Imaging Report ---
INDICATION: Dyspnea FINDINGS: A frontal view of the chest is compared to exam from July 27. A Port-A-Cath remains in place. Lungs are clear. The heart, mediastinum and pulmonary vascularity are normal. Postoperative changes present in the cervical spine. A promotional marketing analyst device is present. IMPRESSION: There are no acute findings. Dictated by: Dictated on workstation # [id number]
[2020-08-25] MEDS: inSUlin ASPART (NovoLOG) 1 UNIT/0.01 ML (CHARGE PER UNIT) SC SCH ×4 (08:40→21:16)
[2020-08-25] MEDS: GABAPENTIN 400 MG (NEURONTIN) CAP PO SCH ×2 (08:41→21:31)
[2020-08-25] MEDS: DOCUSATE SODIUM 100 MG (COLACE) CAP PO SCH ×2 (08:42→20:42)
[2020-08-25] MEDS: APIXABAN 5 MG (ELIQUIS) TABLET PO SCH ×2 (08:42→21:29)
[2020-08-25] MEDS: PANTOPRAZOLE 20 MG TABLET (PROTONIX) PO SCH (08:42)
[2020-08-25] MEDS: ASPIRIN E.C. 81 MG (ECOTRIN) TAB PO SCH (08:42)
[2020-08-25] MEDS: SENNOSIDES 8.6 MG (SENOKOT) TAB PO SCH ×2 (08:42→20:42)
[2020-08-25] MEDS ORDERED: inSUlin ASPART (NovoLOG) 1 UNIT/0.01 ML (CHARGE PER UNIT) SC SCH (12:00)
--- NOTE | 2020-08-25 13:00 | Progress Note - Hospitalist ---
Subjective HPI/CC On Admission Date Seen by Provider: Aug 25, 2020 Time Seen by Provider: 08:30 Itzel Urbano is a 60-year-old female with poorly controlled insulin-dependent diabetes mellitus who presented with weakness. She reports that she had a fall at home. She says that her legs are weak and she also says she has some numbne ss and tingling. She says she had an MRI of her cervical spine as an outpatient and is following up with Dr. Patel. She says that her blood sugars have been good. She says she has been taking her insulin. She denies any fevers or chills. She denies any shortness of breath or cough. She is having some abdominal pain. She denies any nausea or vomiting. She has no other complaints or concerns. Subjective/Events-last exam she reports nausea. She reports neck pain. She is not having any trouble breathing. She denies any fever. She denies any cough. She denies any chest pain. Objective Exam Vital Signs Vital Signs Date Time Temp Pulse Resp B/P (MAP) Pulse Ox O2 Delivery O2 Flow Rate FiO2 08/25/20 11:00 70 12 153/80 (104) 98 Room Air 08/25/20 00:12 37.1 08/24/20 22:08 97 Capillary Refill : Less Than 3 Seconds General Appearance: No Apparent Distress, WD/WN Respiratory: Lungs Clear, Normal Breath Sounds, No Respiratory Distress Cardiovascular: Regular Rate, Rhythm, No Edema, No Murmur Gastrointestinal: Normal Bowel Sounds, Non Tender, Soft Extremity: Normal Inspection, Non Tender, No Pedal Edema Neurologic/Psychiatric: Alert, Oriented x3, No Motor/Sensory Deficits, Normal Mood/Affect Skin: Normal Color, Warm/Dry Results/Procedures Lab Laboratory Tests 08/24/20 18:35 08/24/20 22:16 08/25/20 02:35 Patient resulted labs reviewed. Imaging: Reviewed Imaging Report Assessment/Plan Assessment and Plan Assess & Plan/Chief Complaint Type 2 diabetes mellitus with hyperglycemia Blood sugars improved Creatinine returned to baseline Begin Levemir, transition off insulin gtt begin NovoLog 5 units with meals Sliding scale A IV fluids Nausea and vomiting Likely gastroparesis allergies to Zofran, Reglan, Erythromycin, Scopolamine continue Phenergan and Benadryl Fall imaging negative for acute abnormalities PT/OT History of DVT Chronic anticoagulation GERD HLD Peripheral neuropathy due to diabetes Continue home meds DVT Prophylaxis: already receiving therapeutic anticoagulation HHS, resolved Acute kidney injury, resolved Diagnosis/Problems Diagnosis/Problems (1) Uncontrolled type 2 diabetes mellitus with hyperosmolar nonketotic hyperglycemia Status: Acute (2) T2DM (type 2 diabetes mellitus) Status: Acute Qualifiers: Diabetes mellitus lobsterman insulin use: with lobsterman use Diabetes mellitus complication status: with hyperglycemia Qualified Codes: E11.65 - Type 2 diabetes mellitus with hyperglycemia; Z79.4 - retirement (current) use of insulin (3) Acute kidney injury Status: Resolved Resolution Date/Time: 06/16/20 @ 14:06 (4) Fall Status: Acute Qualifiers: Encounter type: initial encounter Qualified Codes: W19.XXXA - Unspecified fall, initial encounter (5) Insomnia Status: Chronic (6) Hyponatremia Status: Resolved Resolution Date/Time: 08/25/20 @ 12:59 (7) Peripheral neuropathy Status: Chronic (8) Medical non-compliance Status: Chronic (9) HLD (hyperlipidemia) Status: Chronic (10) GERD (gastroesophageal reflux disease) Status: Chronic Clinical Quality Measures DVT/VTE Risk/Contraindication: Risk Factor Score Per Nursin RFS Level Per Nursing on Admit: 2=Moderate Smoking Cessation Counseling: Counseling-Symptomatic: 3-10 Minutes JUAN DAVID BRADSHAW MD Aug 25, 2020 13:00
[2020-08-25 17:59] LABS: POTASSIUM 4.7 MMOL/L (3.6-5.0)
[2020-08-25 18:00] LABS: CALCIUM 7.8 MG/DL (8.5-10.1)
[2020-08-25 18:05] LABS: CREATININE SERUM 1.02 MG/DL (0.60-1.30)
[2020-08-26] VITALS (7 sets, daily range): BP systolic 147–195; BP diastolic 63–81
[2020-08-26] MEDS: fentaNYL INJECTION 100 MCG/2 ML AMP IV PRN ×7 (04:10→23:13)
[2020-08-26 04:59] LABS: BASOPHILS # (AUTO) 0.1 10^3/uL (0.0-0.1); BASOPHILS % (AUTO) 1 % (0-10); EOSINOPHILS # (AUTO) 0.7 10^3/uL (0.0-0.3); EOSINOPHILS % (AUTO) 7 % (0-10); HEMATOCRIT 31 % (35-52); HEMOGLOBIN 10.4 g/dL (11.5-16.0); LYMPHOCYTES # (AUTO) 3.2 10^3/uL (1.0-4.0); LYMPHOCYTES % (AUTO) 32 % (12-44); MEAN CORPUSCULAR HEMOGLOBIN 30 pg (25-34); MEAN CORPUSCULAR HGB CONC 33 g/dL (32-36); MEAN CORPUSCULAR VOLUME 90 fL (80-99); MEAN PLATELET VOLUME 10.6 fL (9.0-12.2); MONOCYTES # (AUTO) 0.6 10^3/uL (0.0-1.0); MONOCYTES % (AUTO) 6 % (0-12); NEUTROPHILS # (AUTO) 5.4 10^3/uL (1.8-7.8); NEUTROPHILS % (AUTO) 55 % (42-75); PLATELET COUNT 236 10^3/uL (130-400)
[2020-08-26 05:12] LABS: POTASSIUM 4.7 MMOL/L (3.6-5.0)
[2020-08-26 05:18] LABS: CREATININE SERUM 0.96 MG/DL (0.60-1.30); PHOSPHORUS 2.6 MG/DL (2.3-4.7)
[2020-08-26 05:20] LABS: MAGNESIUM 1.8 MG/DL (1.6-2.4)
[2020-08-26] MEDS: diphenhydrAMINE 50 MG/ML INJ (BENADRYL) IV PRN ×4 (06:53→20:20)
[2020-08-26] MEDS: inSUlin ASPART (NovoLOG) 1 UNIT/0.01 ML (CHARGE PER UNIT) SC SCH ×5 (06:53→20:44)
[2020-08-26] MEDS: PROMETHAZINE INJ 25 MG/ML (PHENERGAN) AMP IV PRN ×3 (06:53→20:19)
[2020-08-26] MEDS: amLODIPine 10 MG (NORVASC) TAB PO SCH (08:09)
[2020-08-26] MEDS: GABAPENTIN 400 MG (NEURONTIN) CAP PO SCH ×2 (08:09→20:19)
[2020-08-26] MEDS: PANTOPRAZOLE 20 MG TABLET (PROTONIX) PO SCH (08:09)
[2020-08-26] MEDS: ASPIRIN E.C. 81 MG (ECOTRIN) TAB PO SCH (08:09)
[2020-08-26] MEDS: APIXABAN 5 MG (ELIQUIS) TABLET PO SCH ×2 (08:09→20:19)
[2020-08-26] MEDS: DOCUSATE SODIUM 100 MG (COLACE) CAP PO SCH ×2 (08:31→19:55)
[2020-08-26] MEDS: SENNOSIDES 8.6 MG (SENOKOT) TAB PO SCH ×2 (08:31→19:55)
--- NOTE | 2020-08-26 08:52 | Progress Note - Hospitalist ---
Subjective HPI/CC On Admission Date Seen by Provider: Aug 26, 2020 Time Seen by Provider: 08:44 Itzel Urbano is a 60-year-old female with poorly controlled insulin-dependent diabetes mellitus who presented with weakness. She reports that she had a fall at home. She says that her legs are weak and she also says she has some numbne ss and tingling. She says she had an MRI of her cervical spine as an outpatient and is following up with Dr. Patel. She says that her blood sugars have been good. She says she has been taking her insulin. She denies any fevers or chills. She denies any shortness of breath or cough. She is having some abdominal pain. She denies any nausea or vomiting. She has no other complaints or concerns. Subjective/Events-last exam Pt reports doing better today. States she is still weak though. Has been up to the bathroom though on her own. She complains of itching still and would like to increase her IV benadryl dosing. Objective Exam Vital Signs Vital Signs Date Time Temp Pulse Resp B/P (MAP) Pulse Ox O2 Delivery O2 Flow Rate FiO2 08/26/20 08:28 Room Air 08/26/20 08:00 36.9 78 14 155/72 (99) 97 08/24/20 22:08 97 Capillary Refill : Less Than 3 Seconds General Appearance: No Apparent Distress, Chronically ill Respiratory: Lungs Clear, No Respiratory Distress Cardiovascular: Regular Rate, Rhythm, No Murmur Extremity: No Calf Tenderness, No Pedal Edema Neurologic/Psychiatric: Alert, Oriented x3 Results/Procedures Lab Laboratory Tests 08/25/20 17:35 08/26/20 04:10 Patient resulted labs reviewed. Imaging: Reviewed Imaging Report Assessment/Plan Assessment and Plan Assess & Plan/Chief Complaint Type 2 diabetes mellitus with hyperglycemia Blood sugars improved Creatinine returned to baseline Continue Levemir and prandial Novolog Sliding scale A Nausea and vomiting Likely gastroparesis allergies to Zofran, Reglan, Erythromycin, Scopolamine continue Phenergan and Benadryl -Increased benadryl frequency but dosed decreased Fall imaging negative for acute abnormalities PT/OT History of DVT Chronic anticoagulation GERD HLD Peripheral neuropathy due to diabetes Continue home meds DVT Prophylaxis: already receiving therapeutic anticoagulation HHS, resolved Acute kidney injury, resolved Discharge planning: recommended care home or assisted living again on discharge. Pt states she would still prefer not to go but will talk to social work this time about options. Clinical Quality Measures DVT/VTE Risk/Contraindication: Risk Factor Score Per Nursin RFS Level Per Nursing on Admit: 2=Moderate Smoking Cessation Counseling: Counseling-Symptomatic: 3-10 Minutes GERARDO RITTER MD Aug 26, 2020 08:52
--- NOTE | 2020-08-26 10:02 | Physical Therapy Evaluation ---
PT Evaluation-General Medical Diagnosis Admission Date Aug 24, 2020 at 04:45 Medical Diagnosis: hyperglycemia Onset Date: Aug 24, 2020 Therapy Diagnosis Therapy Diagnosis: debility Height/Weight Height (Feet): 5 Height (Inches): 1.00 Weight (Pounds): 122 Weight (Ounces): 1.0 Precautions Precautions/Isolations: Standard Precautions Weight Bear Status Right Lower Extremity: Right Weight Bearing/Tolerated Left Lower Extremity: Left Weight Bearing/Tolerated Referral Physician: Kd Reason for Referral: Evaluation/Treatment Medical History Pertinent Medical History: Alcoholism, CAD, DM, GERD, HTN, Neuropathy, Renal Insufficiency, Smoking Additional Medical History multiple hospital admits due to hyperglycemia Current History EMS secondary to elevated glucose and weakness Social History Home: Apartment Current Living Status: Alone Entry Into Home: Elevator, Level Entry Prior Prior Level of Function SCALE: Activities may be completed with or without assistive devices. 4-Iehyjpxhpw-tnrbowm completes the activity by him/herself with no assistance from a helper. 5-Set-up or Clean-up Assistance-helper sets up or cleans up; patient completes activity. [place] assists only prior to or following the activity. 4-Supervision or Touching Assistance-helper provides verbal cues and/or touching/steadying and/or contact guard assistance as patient completes activity. Assistance may be provided throughout the activity or intermittently. 3-Partial/Moderate Assistance-helper does LESS THAN HALF the effort. [place] lifts, holds or supports trunk or limbs, but provides less than half the effort. 2-Substantial/Maximal Assistance-helper does MORE THAN HALF the effort. [place] lifts or holds trunk or limbs and provides more than half the effort. 8-Cnqvwxvij-lpwnii does ALL the effort. Patient does none of the effort to complete the activity. Or, the assistance of 2 or more helpers is required for the patient to complete the activity. If activity was not attempted, code reason: 7-Patient Refused. 9-Not Applicable-not attempted and the patient did not perform the activity before the current illness, exacerbation or injury. 10-Not Attempted due to Environmental Limitations-(lack of equipment, weather restraints, etc.). 88-Not Attempted due to Medical Conditions or Safety Concerns. Bed Mobility: 5 Transfers (B,C,W/C): 5 Gait: 5 Stairs: 9 Indoor Mobility (Ambulation): Independent Stairs: Not Applicalbe Prior Devices Use: Walker PT Evaluation-Current Subjective Patient agrees to PT. Pain Numeric Pain Scale: 0-No Pain Location: No Pain Reported Objective Patient Orientation: Normal For Age Attachments: Bateman Catheter ROM/Strength ROM Lower Extremities bilateral LE WFL Strength Lower Extremities 4-/5 grossly bilateral LE Integumentary/Posture Integumentary refer to nursing notes Bowel Incontinence: No Bladder Incontinence: Bateman Cath Posture WFL Neuromuscular (Tone, Coordination, Reflexes) grossly intact Sensory Vision: Wears Glasses Hearing: Functional Sensation Right Lower Extremit: Impaired Sensation Left Lower Extremity: Impaired Transfers Roll Left to Right (QC): 6 Sit to Lying (QC): 6 Lying to Sitting/Side of Bed(Q: 6 Sit to Stand (QC): 5 Gait Does the Patient Walk?: Yes Mode of Locomotion: Walk Anticipated Mode of Locomotion: Walk Walk 10 feet (QC): 5 Walk 50 ft with 2 Turns(QC): 5 Walk 150 ft (QC): 5 Distance: 300' Gait Assistive Device: FWW Comments/Gait Description safe and functional with no deviation Balance Sitting Static: Normal Sitting Dynamic: Normal Standing Static: Normal Standing Dynamic: Normal Assessment/Needs 60 y .o. female, is currently at [facility] with all gross motor skills and does not require skilled therapy intervention. Rehab Potential: Fair PT Plan Treatment/Plan Treatment Plan: Discontinue PT, goals met Treatment Duration: Aug 26, 2020 Frequency: 1 time per week Estimated Hrs Per Day: .25 hour per day Patient and/or Family Agrees t: Yes Time/GCodes Time In: 825 Time Out: 844 Total Billed Treatment Time: 19 Total Billed Treatment 1 visit [facility] 19 min KELVIN CALVO PT Aug 26, 2020 10:02
--- NOTE | 2020-08-26 10:17 | Occupational Therapy Eval ---
OT Evaluation-General/PLF Medical Diagnosis Admission Date Aug 24, 2020 at 04:45 Medical Diagnosis: hyperglycemia Onset Date: Aug 24, 2020 Therapy Diagnosis Therapy Diagnosis: Weakness Height/Weight Height (Feet): 5 Height (Inches): 1.00 Weight (Pounds): 122 Weight (Ounces): 1.0 Precautions Precautions/Isolations: Standard Precautions Weight Bear Status Weight Bearing Restriction: Weight Bearing/Tolerated Referral Physician: Kd Referral Reason: Activity Tolerance, Self Care, Evaluation/Treatment, Strengthening/ROM Medical History Pertinent Medical History: Alcoholism, CAD, DM, GERD, HTN, Neuropathy, Renal Insufficiency, Smoking Additional Medical History DVT Current History Pt. reports that she fell at home. She states that she has been weak and has difficulty lifting her arms due to "crushed" cervical nerves. Came to ED. Found to have bilateral LE numbness. Pt. also reports nausea and severe itching. Reviewed History: Yes Social History Home: Apartment Current Living Status: Alone Entry Into Home: Elevator, Level Entry ADL-Prior Level of Function SCALE: Activities may be completed with or without assistive devices. 9-Rfnngctpfx-axyjssa completes the activity by him/herself with no assistance from a helper. 5-Set-up or Clean-up Assistance-helper sets up or cleans up; patient completes activity. [place] assists only prior to or following the activity. 4-Supervision or Touching Assistance-helper provides verbal cues and/or touching/steadying and/or contact guard assistance as patient completes activity. Assistance may be provided throughout the activity or intermittently. 3-Partial/Moderate Assistance-helper does LESS THAN HALF the effort. [place] lifts, holds or supports trunk or limbs, but provides less than half the effort. 2-Substantial/Maximal Assistance-helper does MORE THAN HALF the effort. [place] lifts or holds trunk or limbs and provides more than half the effort. 4-Mtcssqvot-cdesvf does ALL the effort. Patient does none of the effort to complete the activity. Or, the assistance of 2 or more helpers is required for the patient to complete the activity. If activity was not attempted, code reason: 7-Patient Refused. 9-Not Applicable-not attempted and the patient did not perform the activity be fore the current illness, exacerbation or injury. 10-Not Attempted due to Environmental Limitations-(lack of equipment, weather restraints, etc.). 88-Not Attempted due to Medical Conditions or Safety Concerns. ADL PLOF Comments Pt. states that she typically lives in [facility], but has stayed with her sister for the previous month. Her sister helps her dress if needed, and helps her wash her hair. She states that her sister has 6 steps at entry, but that she doesn't have to use them very often. Pt. ambulates with a cane mostly, and occasionally a walker. She states that she went to Dr. Patel for pinched nerves in her neck. He referred her to someone in [place]. She reports that they were supposed to call her to set up an appointment, but have not yet. Self Care: Needed Some Help Functional Cognition: Unknown DME/Equipment: Shower DME/Equipment Comments Walker, cane Occupation: Disabled OT Current Status Subjective Pt. states that she is itching, and is nauseated. Nursing reports that it is not time for medication at this time. Appearance Pt. in bed. Agrees to work with OT. Mental Status/Objective Patient Orientation: Person, Place Attachments: Bateman Catheter Current Upper Extremity ROM Right UE- Pt. is able to flex right shoulder to approximately 100 degrees. She is able to flex left shoulder to approximately 45 degrees. Pt. reports pain whenever hitting above stated end range of available motion in bilateral shoulders. Pt. reports having pain in "shoulder" of right UE whenever she flexes shoulder to 100 degrees, and pain in left forearm whenever she flexes left shoulder. She is very guarded with this, and will not even attempt to horizontally abduct left UE to attempt donning left sock. ADL-Treatment Eating (QC): 6 (Per pt. report.) On/Off Footwear (QC): 3 (Mod assist. Pt. able to doff/don right slipper sock, but not left due to left UE pain with movement.) Toileting Hygiene (QC): 1 (Catheter at time of eval.) Other Treatments Pt. transfers supine-sit with SBA. Pt. attempts to don slipper socks, but reports having pain in left forearm when she crosses her left LE onto right knee, and reaches slightly to don sock. OT does this for her. Pt. is able to stand with no LOB. Pt. able to transfer self back into bed, as nursing comes in to remove catheter so that pt. can be transferred to medical floor. All needs met. Education OT Patient Education: Correct positioning, Modified ADL techniques, Progress toward Goal/Update tx plan, Purpose of tx/functional activities, Reviewed precautions, Transfer techniques Teaching Recipient: Patient Teaching Methods: Demonstration, Discussion Response to Teaching: Verbalize Understanding, Return Demonstration, Rein forcement Needed OT Jail Goals Market Research Associate Goals Time Frame: Sep 09, 2020 Eating (QC): 6 Oral Hygiene (QC): 6 Toileting Hygiene (QC): 6 (With use of adaptive equipment.) Shower/Bathe Self (QC): 4 (SBA with use of adaptive equipment.) Upper Body Dressing (QC): 5 Lower Body Dressing (QC): 4 (SBA with use of adaptive equipment.) On/Off Footwear (QC): 4 (With adaptive equipment.) Pt. reports that aside from her nausea, her weakness is from the neuropathy and the impinged nerves in her neck. Since OT will not be able to correct this, pt. would benefit from skilled instruction in adaptive equipment to make daily skills easier and safer. Additional Goals: 1-Demonstrate ADL Tasks, 2-Verbalize Understanding, 3- ImproveStrength/Yue 1=Demonstrate adherence to instructed precautions during ADL tasks. 2=Patient will verbalize/demonstrate understanding of assistive devices/modifications for ADL. 3=Patient will improve strength/tolerance for activity to enable patient to perform ADL's. OT Education/Plan Problem List/Assessment Assessment: Decreased Activ Tolerance, Decreased UE Strength, Dependent Transfers, Impaired Bed Mobility, Impaired Funct Balance, Impaired I ADL's, Impaired Self-Care Skills, Restricted Funct UE ROM Discharge Recommendations Plan/Recommendations: Continue POC Therapy Discharge Recommendati: Post Acute OT Equpiment Recommendations-D/C: Hip Kit Treatment Plan/Plan of Care Treatment,Training & Education: Yes Patient would benefit from OT for education, treatment and training to promote independence in ADL's, mobility, safety and/or upper extremity function for ADL's. Plan of Care: ADL Retraining, Functional Mobility, UE Funct Exercise/Act Treatment Duration: Sep 09, 2020 Frequency: 5 times per week Estimated Hrs Per Day: .25 hour per day Agreement: Yes Rehab Potential: Fair Time/GCodes Start Time: 09:45 Stop Time: 10:00 Total Time Billed (hr/min): 15 Billed Treatment Time 1, EVM NACCARATO,DEREK OT Aug 26, 2020 10:17
--- NOTE | 2020-08-26 10:30 | NUR ---
Transfer to room 306 per wheelchair from previous unit. Report from staff. Care transferred. Patient asking for pain meds already. Shift assessment done.
--- NOTE | 2020-08-26 10:50 | NUR ---
Discussed with patient whether po Lortab would be enough for pain, and patient states she needs Fentanyl IV. Lortabs do nothing at only 5 mg.
--- NOTE | 2020-08-26 14:30 | NUR ---
Up to bathroom to void, first time since catheter removed today. Voided 175cc clear light yellow urine. Patient states when she stood up to wipe herself, her legs buckled. Walker was in front of her, and helped her she states. Was not witnessed by this RN.
--- NOTE | 2020-08-26 14:40 | Discharge Inst-Simple/Standard ---
Discharge Inst-Standard Patient Instructions/Follow Up Plan of Care/Instructions/FU: Please continue to take your medications as written. Please follow up with your primary care doctor to follow up this hospital stay. Activity as Tolerated: Yes Discharge Diet: ADA Diet Return to The Hospital For: Chest pain, shortness of breath, confusion, nausea and vomiting, very high blood sugars, if you feel you are getting worse. GERARDO RITTER MD Aug 26, 2020 14:40
--- NOTE | 2020-08-26 14:40 | NUR ---
Coding Consultant here to see patient.
--- NOTE | 2020-08-26 15:06 | NUR ---
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 Pt was also having issues with her blood sugars. Discuss with pt how she is has been managing at home. She reports she has been doing ok, then this happened. Discuss pt having medicare. She reports she does not have Medicaid. Discuss the criteria. Pt reports getting approximately $1300 per month, and thinks she will not qualify. Pt reports she does not have a supplemental plan with her medicare. Pt is given the [employer] Medicaid application. Pt is encouraged to complete and determine if she would meet criteria. Each area is explained so pt can read what services she could qualify for. Pt does not want home care services, as she is not home bound. She desires to return home with her sister at time of discharge. She is unsure if she had a ride or not. She will let staff know if she needs a ride. This worker will follow up.
--- NOTE | 2020-08-26 19:55 | NUR ---
PT CALLS FOR HS MEDS SHE WANTS TO GO TO SLEEP. INITIAL SHIFT ASSESSMENT DONE. VSS. WILL GATHER ALL OF HS MEDS AND CARE ITEMS.
--- NOTE | 2020-08-26 20:19 | NUR ---
HS MEDS ADMINISTERED. PT ALSO GIVEN BENADRYL AND PHENERGAN PER REQUEST FOR NAUSEA. BENADRYL DILUTED IN 3CC NS AND GIVEN OVER 3 MIN. PHENERGAN DILUTED IN 20CC AND SLOW PUSHED OVER 15 MIN. PT REPORTS THAT MEDS CAN BE GIVEN FASTER BECAUSE SHE HAS HAD IT GIVEN FAST BEFORE AND HAD NO PROBLEMS WITH IT. PT INSTRUCTED THAT MEDS WILL BE GIVEN PER POLICY FOR HER SAFETY.
--- NOTE | 2020-08-26 20:44 | NUR ---
FENTANYL REQUESTED FOR PAIN OF 8/10 TO NECK. LEVEMIR INSULIN 10U AND NOVALOG SLIDING SCALE INSULIN 3U GIVEN TO RIGHT UPPER ARM.
--- NOTE | 2020-08-26 21:35 | NUR ---
PT SLEEPING VERY SOUNDLY. RESP 14 AND EVEN. WILL CONT TO MONITOR.
--- NOTE | 2020-08-26 23:15 | NUR ---
PT CALLS REQUESTING PAIN MEDS FOR PAIN OF 10/10. PT SITTING UP IN BED WHEN THIS NURSE ENTERS ROOM. PT STATES HAS JUST GOTTEN UP TO VOID AND SAVED URINE FOR A UA SHE FEELS LIKE SHE HAS A UTI. PT EDUCATED THAT AFTER HAVING A FITZGERALD CATH SHE WILL HAVE SOME BURNING WITH URINATION. PT REPORTS THAT BURNING IS BEYOND IRRITATION AND KNOWS SHE A UTI. CLEAN HAT AND CLEAN CATCH KIT TO BATHROOM FOR NEXT VOID. PT INSTRUCTED THAT SHE MUST CALL BEFORE GETTING UP D/T THE LARGE NUMBER OF MEDS THAT SHE IS TAKING THAT CAN CAUSE LIGHTHEADEDNESS AND DIZZINESS AND FALLS. PT VERBALIZES UNDERSTANDING.
[2020-08-27] MEDS: diphenhydrAMINE 50 MG/ML INJ (BENADRYL) IV PRN ×5 (00:29→19:52)
--- NOTE | 2020-08-27 00:29 | NUR ---
PT REQUESTS BENADRYL FOR ITCHING/NAUSEA. BENADRYL DILUTED IN 3CC AND GIVEN OVER 3 MIN. PORT-A-CATH FLUSHED BEFORE AND AFTER WITH 10CC NS. AFTER GIVING MED, THIS NURSES PROCEEDS TO UPDATE WHITE BOARD ON TIME OF BENADRYL ADMINISTRATION. NOTED THAT LAST FENTANYL DOSE HAD BEEN UPDATED BY PT. PT REPORTS THAT SHE NOTED THAT THIS NURSE HAD NOT CHANGED THE TIME OF THE LAST DOSE/NEXT DOSE DUE, SO SHE GOT UP AND DID IT SHORTLY AFTER FENTANYL WAS GIVEN. PT SAFETY STRESSED AGAIN.
--- NOTE | 2020-08-27 01:15 | NUR ---
REPORT TO Indigo ABDI RN
[2020-08-27 01:21] VITALS: BP 129/57
[2020-08-27] MEDS: fentaNYL INJECTION 100 MCG/2 ML AMP IV PRN ×5 (01:21→12:26)
[2020-08-27 04:47] VITALS: BP 131/64
[2020-08-27] MEDS: PROMETHAZINE INJ 25 MG/ML (PHENERGAN) AMP IV PRN ×3 (05:06→20:54)
[2020-08-27] MEDS: inSUlin ASPART (NovoLOG) 1 UNIT/0.01 ML (CHARGE PER UNIT) SC SCH ×4 (06:46→20:55)
--- NOTE | 2020-08-27 07:00 | NUR ---
REPORT FROM MILENA SÁNCHEZ
[2020-08-27 08:45] VITALS: BP 166/73
--- NOTE | 2020-08-27 08:45 | NUR ---
HERE, OCC THERAPY HERE.
[2020-08-27] MEDS: ASPIRIN E.C. 81 MG (ECOTRIN) TAB PO SCH (08:47)
[2020-08-27] MEDS: DOCUSATE SODIUM 100 MG (COLACE) CAP PO SCH ×2 (08:47→20:21)
[2020-08-27] MEDS: SENNOSIDES 8.6 MG (SENOKOT) TAB PO SCH ×2 (08:48→20:21)
[2020-08-27] MEDS: GABAPENTIN 400 MG (NEURONTIN) CAP PO SCH ×2 (08:48→20:54)
[2020-08-27] MEDS: amLODIPine 10 MG (NORVASC) TAB PO SCH (08:48)
[2020-08-27] MEDS: APIXABAN 5 MG (ELIQUIS) TABLET PO SCH ×2 (08:48→20:54)
[2020-08-27] MEDS: PANTOPRAZOLE 20 MG TABLET (PROTONIX) PO SCH (08:48)
--- NOTE | 2020-08-27 08:50 | NUR ---
INITIAL ASSESSMENT COMPLETED AT BEDSIDE, SEE INTERVENTIONS FOR DETAILED ASSESSMENTS.
--- NOTE | 2020-08-27 09:07 | Progress Note - Hospitalist ---
Subjective HPI/CC On Admission Date Seen by Provider: Aug 27, 2020 Time Seen by Provider: 09:06 Itzel Urbano is a 60-year-old female with poorly controlled insulin-dependent diabetes mellitus who presented with weakness. She reports that she had a fall at home. She says that her legs are weak and she also says she has some numbness and tingling. She says she had an MRI of her cervical spine as an outpatient and is following up with Dr. Patel. She says that her blood sugars have been good. She says she has been taking her insulin. She denies any fevers or chills. She denies any shortness of breath or cough. She is having some abdominal pain. She denies any nausea or vomiting. She has no other complaints or concerns. Subjective/Events-last exam Pt reports doing better today. Complains of chronic neck and shoulder pain. Discussed consideration for NH placement again and patient states she will think about it. Objective Exam Vital Signs Vital Signs Date Time Temp Pulse Resp B/P (MAP) Pulse Ox O2 Delivery O2 Flow Rate FiO2 08/27/20 04:47 37.1 75 18 131/64 (86) 96 Room Air 08/24/20 22:08 97 Capillary Refill : Less Than 3 Seconds General Appearance: No Apparent Distress, Chronically ill Respiratory: Lungs Clear, No Respiratory Distress Cardiovascular: Regular Rate, Rhythm, No Murmur Neurologic/Psychiatric: Alert, Oriented x3 Results/Procedures Lab Patient resulted labs reviewed. Imaging: Reviewed Imaging Report Assessment/Plan Assessment and Plan Assess & Plan/Chief Complaint Type 2 diabetes mellitus with hyperglycemia Blood sugars improved Creatinine returned to baseline Continue Levemir and prandial Novolog Sliding scale A Nausea and vomiting Likely gastroparesis allergies to Zofran, Reglan, Erythromycin, Scopolamine continue Phenergan and Benadryl as ordered Fall imaging negative for acute abnormalities PT/OT History of DVT Chronic anticoagulation GERD HLD Peripheral neuropathy due to diabetes Continue home meds DVT Prophylaxis: already receiving therapeutic anticoagulation HHS, resolved Acute kidney injury, resolved Discharge planning: recommended intermediate or assisted living again today on discharge. She became slightly tearful and agrees to think about it but doesn't want to go. Clinical Quality Measures DVT/VTE Risk/Contraindication: Risk Factor Score Per Nursin RFS Level Per Nursing on Admit: 2=Moderate Smoking Cessation Counseling: Counseling-Symptomatic: 3-10 Minutes GERARDO RITTER MD Aug 27, 2020 09:07
--- NOTE | 2020-08-27 09:50 | NUR ---
UA SENT TO LAB.
[2020-08-27 09:56] LABS: BILIRUBIN,URINE NEGATIVE (NEGATIVE); CLARITY,URINE CLEAR; COLOR,URINE YELLOW; GLUCOSE, URINE (UA) TRACE (NEGATIVE); KETONES,URINE NEGATIVE (NEGATIVE); LEUKOCYTE ESTERASE ,URINE TRACE (NEGATIVE); NITRITE,URINE POSITIVE (NEGATIVE); PROTEIN,URINE 3+ (NEGATIVE)
[2020-08-27 10:04] LABS: BACTERIA,URINE LARGE /HPF; SQUAMOUS EPITHELIAL CELL,UR 0-2 /HPF; WBC,URINE >100 /HPF
--- NOTE | 2020-08-27 10:42 | NUR ---
PT REQUESTING JULI
--- NOTE | 2020-08-27 10:54 | NUR ---
BENADRYL GIVEN FOR C/O ITCHING RELATED TO BEING "HIGHLY SENSITIVE TO LAUNDRY DETERGENT "
--- NOTE | 2020-08-27 12:00 | NUR ---
CALLED WITH [facility]A RESULTS, AND REQUESTING PT ONLY RECEIVE PO PAIN MEDS FROM NOW ON.
--- NOTE | 2020-08-27 12:51 | Occupational Ther Daily Note ---
OT Current Status-Daily Note Subjective Pt. reports pain in left UE. Does not report pain to this therapist, but nursing in room and does give pain medication. Mental Status/Objective Patient Orientation: Person ADL-Treatment Therapy Code Descriptions/Definitions Functional [place] Measure: 0=Not Assessed/NA 4=Minimal Assistance 1=Total Assistance 5=Supervision or Setup 2=Maximal Assistance 6=Modified [place] 3=Moderate Assistance 7=Complete IndependenceSCALE: Activities may be completed with or without assistive devices. 2-Lhurldiaxw-oetdsui completes the activity by him/herself with no assistance from a helper. 5-Set-up or Clean-up Assistance-helper sets up or cleans up; patient completes activity. [place] assists only prior to or following the activity. 4-Supervision or Touching Assistance-helper provides verbal cues and/or touching/steadying and/or contact guard assistance as patient completes activity. Assistance may be provided throughout the activity or intermittently. 3-Partial/Moderate Assistance-helper does LESS THAN HALF the effort. [place] lifts, holds or supports trunk or limbs, but provides less than half the effort. 2-Substantial/Maximal Assistance-helper does MORE THAN HALF the effort. [place] lifts or holds trunk or limbs and provides more than half the effort. 2-Mhqrezjym-wtbnoe does ALL the effort. Patient does none of the effort to complete the activity. Or, the assistance of 2 or more helpers is required for the patient to complete the activity. If activity was not attempted, code reason: 7-Patient Refused. 9-Not Applicable-not attempted and the patient did not perform the activity before the current illness, exacerbation or injury. 10-Not Attempted due to Environmental Limitations-(lack of equipment, weather restraints, etc.). 88-Not Attempted due to Medical Conditions or Safety Concerns. Other Treatment Pt. seen twice this a.m. At first session, pt. in bed and nursing in room giving pt. medication. Pt. verbalizes that she has pain in left UE, as well as right neck area. Pt. repeats multiple times that the nerves in her neck are "crushed." Pt. getting IV pain meds and would like to wait on therapy. OT agrees to come back in an hour, as pt. agrees to shower then. Physician comes in room and talks with pt. about her concerns, and pt. repeats concerns of having a UTI, pain, etc..Physician addresses concerns and concern for pt safety at discharge. Addresses possible NH placement due to pt's ongoing safety and medical issues. Pt. resistant. After physician leaves, OT and nursing talk with pt. about goals. Pt. has been hospitalized multiple times recently, and has not been coping well in home environment. Encouraged pt. that NH does not have to be fci, but could be a place to gain her strength and independence, as currently, pt. is not managing herself medically, and is unable to functionally take care of self as well. Pt. is more open to listening and agreeable that maybe this will be the best option for her. Pt. agrees to shower when OT comes back. All needs met. OT does come back. Pt. declines showering, stating that she is itching, and does not want to put on hospital gowns, as they will make her itch more. Declines OOB activity. Agrees for OT to assess left UE ROM/scapular glides. OT begins to perform gentle PROM to left UE to left elbow and shoulder. Pt. indicates that this hurts too much, but does not state pain level. Pt. inconsistent with levels of pain, and location of pain. Pt. encouraged to perform self ranging techniques, and shown specific techniques that she can perform from seated level. Encouraged on need to move her arms to assist herself, as she reports she is losing function in all areas of daily living. Pt. declines further treatment. All needs met. OT let nursing know that pt. declines showering. Education OT Patient Education: Correct positioning, Exercise program, Progress toward Goal/Update tx plan, Purpose of tx/functional activities, Reviewed precautions, Rehab process Teaching Recipient: Patient Teaching Methods: Demonstration, Discussion Response to Teaching: Verbalize Understanding, Reinforcement Needed OT School Psychology Professor Goals Fdc Goals Time Frame: Sep 09, 2020 Eating (QC): 6 Oral Hygiene (QC): 6 Toileting Hygiene (QC): 6 (With use of adaptive equipment.) Shower/Bathe Self (QC): 4 (SBA with use of adaptive equipment.) Upper Body Dressing (QC): 5 Lower Body Dressing (QC): 4 (SBA with use of adaptive equipment.) On/Off Footwear (QC): 4 (With adaptive equipment.) Pt. reports that aside from her nausea, her weakness is from the neuropathy and the impinged nerves in her neck. Since OT will not be able to correct this, pt. would benefit from skilled instruction in adaptive equipment to make daily skills easier and safer. Additional Goals: 1-Demonstrate ADL Tasks, 2-Verbalize Understanding, 3- ImproveStrength/Yue 1=Demonstrate adherence to instructed precautions during ADL tasks. 2=Patient will verbalize/demonstrate understanding of assistive devices/modifications for ADL. 3=Patient will improve strength/tolerance for activity to enable patient to perform ADL's. OT Education/Plan Problem List/Assessment Assessment: Decreased Activ Tolerance, Decreased Safety Aware, Decreased UE Strength, Dependent Transfers, Impaired I ADL's, Impaired Self-Care Skills, Restricted Funct UE ROM Discharge Recommendations Plan/Recommendations: Continue POC Therapy Discharge Recommendati: 24 Hour Supervision Treatment Plan/Plan of Care Treatment,Training & Education: Yes Patient would benefit from OT for education, treatment and training to promote independence in ADL's, mobility, safety and/or upper extremity function for ADL's. Plan of Care: ADL Retraining, Functional Mobility, UE Funct Exercise/Act Treatment Duration: Sep 09, 2020 Frequency: 5 times per week Estimated Hrs Per Day: .25 hour per day Agreement: Yes Rehab Potential: Fair Time/GCodes Start Time: 08:45 Stop Time: 10:40 Total Time Billed (hr/min): 40 Billed Treatment Time 7252-4483 1, visit x 20minutes 3550-1559 1, Ex x 20minutes DEREK PENG OT Aug 27, 2020 12:51
[2020-08-27 13:00] VITALS: BP 156/67
--- NOTE | 2020-08-27 14:15 | NUR ---
PT RESTING WITH EYES CLOSED IN BED.
[2020-08-27] MEDS: HYDROcodone/APAP 5 MG/325 MG (LORTAB) TAB PO PRN ×2 (15:02→20:54)
--- NOTE | 2020-08-27 15:05 | NUR ---
PT RESTING MEDS, MEDS GIVEN SEE JAN. PT C/O DIARRHEA
[2020-08-27] MEDS ORDERED: DIPHENOXYLATE/ATROPINE 2.5MG/0.025MG (LOMOTIL) TAB PO PRN (15:30)
--- NOTE | 2020-08-27 16:43 | NUR ---
CM/SS: Visited with pt as to plan for discharge, [facility] and [facility] Medicaid Plan: Undetermined at this time Summary: Pt is watching television at the time of the visit. Pt is asked about the medicaid application and if she is interested in going to a facility. Pt reports that she does not understand the process of getting into a facility. This information is explained to pt. She verbalizes understanding, but is still not sure at this time if she wants to go. Pt is encouraged to complete the medicaid application on this evening and this worker will follow up. Frequent hospital stays and adult protective services is explained, based on reporting and pt being at the wrong level of care. Pt reports that her sister states she can take better care of her than any prison. Pt is again reminded to complete the medicaid application. Pt feels as if she will be able to go home or somewhere on tomorrow. This worker will follow up.
--- NOTE | 2020-08-27 16:43 | NUR ---
PT REQUESTING SOMETHING STRONGER FOR PAIN, CALLED.
--- NOTE | 2020-08-27 17:00 | NUR ---
DR RITTER RETURNED CALL ABOUT PAIN MEDS, NO NEW ORDERS RECEIVED.
[2020-08-27] MEDS: cefTRIAXone FOR IV USE 1,000 MG in WATER (STERILE) FOR INJECTION 10 ML IV SCH (17:55)
[2020-08-27 18:05] VITALS: BP 160/73
[2020-08-27 19:53] VITALS: BP 144/67
[2020-08-28] VITALS (8 sets, daily range): BP systolic 139–174; BP diastolic 65–77
[2020-08-28] MEDS: diphenhydrAMINE 50 MG/ML INJ (BENADRYL) IV PRN ×6 (00:10→22:40)
[2020-08-28] MEDS: HYDROcodone/APAP 5 MG/325 MG (LORTAB) TAB PO PRN ×4 (03:06→22:40)
[2020-08-28] MEDS: PROMETHAZINE INJ 25 MG/ML (PHENERGAN) AMP IV PRN ×4 (04:07→23:15)
--- NOTE | 2020-08-28 08:30 | NUR ---
DR. CHAVES HERE TO SEE PT PER HIS NOTES.
--- NOTE | 2020-08-28 08:36 | Progress Note - Hospitalist ---
Subjective HPI/CC On Admission Date Seen by Provider: Aug 28, 2020 Time Seen by Provider: 07:30 Itzel Urbano is a 60-year-old female with poorly controlled insulin-dependent diabetes mellitus who presented with weakness. She reports that she had a fall at home. She says that her legs are weak and she also says she has some numbness and tingling. She says she had an MRI of her cervical spine as an outpatient and is following up with Dr. Patel. She says that her blood sugars have been good. She says she has been taking her insulin. She denies any fevers or chills. She denies any shortness of breath or cough. She is having some abdominal pain. She denies any nausea or vomiting. She has no other complaints or concerns. Subjective/Events-last exam patient reports feeling a little stronger today. She had breakfast and had not yet received any in. She had her insulin with her so she was instructed to give herself 6 units watched as she administered her dose. Despite this I did receive a phone call that her blood sugars little bit over 400 before lunch. We did discuss recommendations for long-term care due to several recent hospital admissions but she does not feel that she will comply with this recommendation. Objective Exam Vital Signs Vital Signs Date Time Temp Pulse Resp B/P (MAP) Pulse Ox O2 Delivery O2 Flow Rate FiO2 08/28/20 14:30 36.5 79 17 158/66 (96) 96 Room Air 08/24/20 22:08 97 Capillary Refill : Less Than 3 Seconds General Appearance: No Apparent Distress Respiratory: Chest Non Tender, Lungs Clear, Normal Breath Sounds, No Accessory Muscle Use, No Respiratory Distress Cardiovascular: Regular Rate, Rhythm, No Edema, No Gallop, No JVD, No Murmur, Normal Peripheral Pulses Gastrointestinal: Normal Bowel Sounds, No Organomegaly, No Pulsatile Mass, Non Tender, Soft Results/Procedures Lab Patient resulted labs reviewed. Imaging: Reviewed Imaging Report Assessment/Plan Assessment and Plan Assess & Plan/Chief Complaint 1. Urinary tract infection with multifactorial decondioning. We'll continue Rocephin and physical therapy likely discharge tomorrow as patient refusing to consider longterm placement described as being likely just temporary. 2. Insulin requiring type II diabetes mellitus under poor control will initiate standard bolus insulin and increase basal rates. Clinical Quality Measures DVT/VTE Risk/Contraindication: Risk Factor Score Per Nursin RFS Level Per Nursing on Admit: 2=Moderate Smoking Cessation Counseling: Counseling-Symptomatic: 3-10 Minutes QUIN CHAVES MD Aug 28, 2020 08:36
--- NOTE | 2020-08-28 09:00 | NUR ---
A.M. ASSESSMENT COMPLETED. PT REFUSING NORVASC, ASA, COLACE, AND SENOKOT. STATES THE TOLD HER NOT TO TAKE NORVASC OR ASA WITH DANNIE.
[2020-08-28] MEDS: GABAPENTIN 400 MG (NEURONTIN) CAP PO SCH ×2 (09:28→20:44)
[2020-08-28] MEDS: APIXABAN 5 MG (ELIQUIS) TABLET PO SCH ×2 (09:29→20:43)
[2020-08-28] MEDS: PANTOPRAZOLE 20 MG TABLET (PROTONIX) PO SCH (09:30)
[2020-08-28] MEDS: ASPIRIN E.C. 81 MG (ECOTRIN) TAB PO SCH (09:34)
[2020-08-28] MEDS: SENNOSIDES 8.6 MG (SENOKOT) TAB PO SCH ×2 (09:34→20:43)
[2020-08-28] MEDS: DOCUSATE SODIUM 100 MG (COLACE) CAP PO SCH ×2 (09:34→20:43)
[2020-08-28] MEDS: amLODIPine 10 MG (NORVASC) TAB PO SCH ×2 (09:35→12:11)
--- NOTE | 2020-08-28 10:55 | NUR ---
CM/SS: Visited with pt as to her plan for discharge and assisted pt in the completion of the [facility] Medicaid application Plan: Pt to return home with no identified services when deemed appropriate Summary: Pt is in bed at the time of the visit. Pt reports that she was able to complete the medicaid application. This worker goes over the information with pt that she has written. Pt will need to complete some of the information on the application, she will need her bank information and other supporting documents. Pt is aware and a paper attached as to what is needed and where to submit it. Pt verbalizes understanding. Financial services notified of the application and request that a copy be made -copy made for financial services. Financial services with follow up with pt as having a release signed for [facility] - medicaid. This worker will follow up
--- NOTE | 2020-08-28 11:50 | NUR ---
CALLED DR. CHAVES TO VERIFY INSULIN ORDERS.
--- NOTE | 2020-08-28 11:58 | NUR ---
FSBS 413 WITH REPEAT 407 MGS/DL.
[2020-08-28] MEDS: inSUlin ASPART (NovoLOG) 1 UNIT/0.01 ML (CHARGE PER UNIT) SC SCH (12:00)
--- NOTE | 2020-08-28 12:00 | NUR ---
DR. CHAVES NOTIFIED OF PT'S BLOOD SUGAR OF 413 AND REPEATED AT 407. ORDERS RECEIVED TO GIVE 9 UNITS NOVOLOG INSTEAD OF 5 BEFORE LUNCH.
[2020-08-28] MEDS ORDERED: inSUlin ASPART (NovoLOG) 1 UNIT/0.01 ML (CHARGE PER UNIT) SC ONE (12:15)
[2020-08-28] MEDS ORDERED: FLU QUADRIvalent (3YOA+) 60 mcg/0.5 ml 2020-21 (AFLURIA) IM ONE (13:00)
--- NOTE | 2020-08-28 14:01 | Occ Therapy Progress Note ---
Therapy Progress Note Per nursing reports, pt. up ad chantal in room. Independent with toileting. Pt. has been educated on UE ROM activities pertaining to her limited range from degenerative changes, as she is known to this therapist from previous admissions. Pt. demonstrates poor follow through with recommendations and initiation of tasks. Will discontinue OT at this time. 1401 DEREK PENG OT Aug 28, 2020 14:01
--- NOTE | 2020-08-28 14:30 | NUR ---
PT HAS BEEN ASLEEP OFF AND ON WHEN ENTERING ROOM BUT CONTINUES TO RATE HER GENERALIZED PAIN AT 9-10/10. REQUESTS JULI.
--- NOTE | 2020-08-28 15:52 | NUR ---
DR. CHAVES NOTIFIED OF PT'S REQUEST FOR MORE PAIN MEDICATION. ORDER TO INCREASE LORTAB TO 5/325 Q 4 HOURS PRN PAIN.
[2020-08-28] MEDS: cefTRIAXone FOR IV USE 1,000 MG in WATER (STERILE) FOR INJECTION 10 ML IV SCH (17:14)
--- NOTE | 2020-08-28 17:21 | NUR ---
LORTAB 5/325 1 P.O. FOR C/O GENERALIZED PAIN RATED 9/10.
--- NOTE | 2020-08-28 17:28 | NUR ---
FLU VACCINE GIVEN IM IN RIGHT DELTOID. SITE CLEAR.
[2020-08-28] MEDS ORDERED: inSUlin ASPART (NovoLOG) 1 UNIT/0.01 ML (CHARGE PER UNIT) SC SCH (17:30)
[2020-08-28] MEDS: inSUlin ASPART (NovoLOG) 1 UNIT/0.01 ML (CHARGE PER UNIT) SQ SCH (17:46)
--- NOTE | 2020-08-28 18:30 | NUR ---
TOOK 100% OF DINNER. VOIDING LARGE AMOUNTS. HAS BEEN AMBULATING TO THE BATHROOM WITHOUT PROBLEMS.
[2020-08-28] MEDS: CATHETER FLUSH 10 ML SYR IV PRN ×2 (22:41→23:15)
[2020-08-29] MEDS: HYDROcodone/APAP 5 MG/325 MG (LORTAB) TAB PO PRN ×2 (03:59→08:17)
[2020-08-29] MEDS: diphenhydrAMINE 50 MG/ML INJ (BENADRYL) IV PRN ×3 (04:00→12:19)
[2020-08-29] MEDS: CATHETER FLUSH 10 ML SYR IV PRN ×2 (04:00→06:47)
[2020-08-29 04:02] VITALS: BP 160/72
[2020-08-29] MEDS: PROMETHAZINE INJ 25 MG/ML (PHENERGAN) AMP IV PRN (06:46)
[2020-08-29 07:40] VITALS: BP 135/73
[2020-08-29] MEDS: amLODIPine 10 MG (NORVASC) TAB PO SCH (07:58)
[2020-08-29] MEDS: GABAPENTIN 400 MG (NEURONTIN) CAP PO SCH (07:58)
[2020-08-29] MEDS: APIXABAN 5 MG (ELIQUIS) TABLET PO SCH (07:58)
[2020-08-29] MEDS: PANTOPRAZOLE 20 MG TABLET (PROTONIX) PO SCH (07:58)
[2020-08-29] MEDS: SENNOSIDES 8.6 MG (SENOKOT) TAB PO SCH (07:58)
[2020-08-29] MEDS: DOCUSATE SODIUM 100 MG (COLACE) CAP PO SCH (07:58)
[2020-08-29] MEDS: inSUlin ASPART (NovoLOG) 1 UNIT/0.01 ML (CHARGE PER UNIT) SQ SCH (08:00)
--- NOTE | 2020-08-29 08:05 | NUR ---
dr padgett at bedside reviewing poc.
[2020-08-29] MEDS ORDERED: CEPH250C PO (08:40)
--- NOTE | 2020-08-29 08:46 | Discharge Summary ---
Diagnosis/Chief Complaint Date of Admission Aug 24, 2020 at 04:45 Date of Discharge Discharge Date: Aug 27, 2020 Admission Diagnosis Type 2 diabetes mellitus with hyperglycemia and likely hyperosmolar hyperglycemic state Primary Care Cindy Calabrese DO Discharge Diagnosis (1) Uncontrolled type 2 diabetes mellitus with hyperosmolar nonketotic hyperglycemia Status: Acute (2) T2DM (type 2 diabetes mellitus) Status: Acute (3) Acute kidney injury Status: Resolved (4) Fall Status: Acute (5) Insomnia Status: Chronic (6) Hyponatremia Status: Resolved (7) Peripheral neuropathy Status: Chronic (8) Medical non-compliance Status: Chronic (9) HLD (hyperlipidemia) Status: Chronic (10) GERD (gastroesophageal reflux disease) Status: Chronic Discharge Summary Discharge Physical Exam Allergies: Coded Allergies: ketorolac (Verified Allergy, Severe, ANAPHYLAXIS, PT TAKES ASA AT HOME, ) ondansetron (Verified Allergy, Intermediate, RASH, 03/06/19) RASH/ HIVES scopolamine (Verified Allergy, Mild, Rash, 03/21/19) exenatide (Verified Allergy, Unknown, NAUSEA, 03/06/19) NON STOP VOMITING latex (Verified Allergy, Unknown, RASH, 03/06/19) metoclopramide (Verified Allergy, Unknown, RESTLESS LEGS, 03/06/19) erythromycin base (Verified Adverse Reaction, Unknown, 03/21/19) Vitals & I&Os Vital Signs Date Time Temp Pulse Resp B/P (MAP) Pulse Ox O2 Delivery O2 Flow Rate FiO2 08/29/20 04:02 36.8 72 18 160/72 (101) 96 Room Air 08/24/20 22:08 97 General Appearance: No Apparent Distress Respiratory: Chest Non Tender, Lungs Clear, Normal Breath Sounds, No Accessory Muscle Use, No Respiratory Distress Cardiovascular: Regular Rate, Rhythm, No Edema Neurologic/Psychiatric: Alert, Oriented x3 Hospital Course Was the Problem List Reviewed?: Yes Itzel Urbano is a 60-year-old female with poorly controlled insulin-dependent diabetes mellitus who presented with weakness. She reports that she had a fall at home. She says that her legs are weak and she also says she has some numbness and tingling. She says she had an MRI of her cervical spine as an outpatient and is following up with Dr. Patel. She says that her blood sugars have been good. She says she has been taking her insulin. She denies any fevers or chills. She denies any shortness of breath or cough. She is having some abdominal pain. She denies any nausea or vomiting. She has no other complaints or concerns. Patient was noted to have a urinary tract infection growing Escherichia coli. Sensitivities still pending this morning with no history of multi drug resistant infection known. She was feeling better with predom sharp radicular sounding left upper extremity pain radiating into the neck. We discussed that this could be contributing to her falls and she stated she would call Dr. Patel who is in the process of setting her up with a hair specialist. She denied bowel or bladder control and was ambulating without difficulty with no evidence for sepsis and improved blood sugar control. She is to follow up with Dr. Calabrese as well. She was discharged on another 3 days of cephalexin 250 mg 3 times a day. Labs (last 24 hrs) Laboratory Tests 08/28/20 11:59: Glucometer 407*H 08/28/20 17:25: Glucometer 156H 08/28/20 20:26: Glucometer 133H 08/29/20 06:35: Glucometer 175H Microbiology 08/27/20 Urine Culture - Preliminary, Resulted Escherichia coli 08/24/20 MRSA Screen - Final, Complete MRSA not isolated Patient resulted labs reviewed. Pending Labs Laboratory Tests 08/29/20 06:35: Glucometer 175 Imaging: Reviewed Imaging Report Discussion & Recommendations Discharge Planning: >30 minutes discharge planning Discharge Home Medications: Active Scripts Active Cephalexin 250 Mg Capsule 250 Mg PO TID 3 Days Promethazine Tablet (Promethazine HCl) 25 Mg Tablet 25 Mg PO Q6H PRN Reported Tylenol (Acetaminophen) 325 Mg Capsule 650 Mg PO Q6H PRN Atorvastatin Calcium 20 Mg Tablet 20 Mg PO HS Glucagon Emergency Kit (Glucagon,Human Recombinant) 1 Mg/Kit Soln 1 Mg INJ UD PRN Soothe Lubricant Eye Drops (Glycerin/Propylene Glycol) 1 Each Droperette 2 Drops OU PRN PRN Benadryl Allergy (Diphenhydramine HCl) 25 Mg Tablet 25-50 Mg PO Q6H PRN Melatonin 5 Mg Tablet 5 Mg PO HS Novolog Flexpen (Insulin Aspart) 300 Units/3 Ml Solution Units SC TIDAC USES PER SLIDING SCALE Eliquis (Apixaban) 5 Mg Tablet 5 Mg PO BID Gabapentin 800 Mg Tablet 800 Mg PO DAILY Levemir Flextouch (Insulin Detemir) 100 Unit/1 Ml Insuln.pen 15 Unit SQ BID Omeprazole 20 Mg Capsule.dr 20 Mg PO DAILY Aspirin EC (Aspirin) 81 Mg Tablet.dr 81 Mg PO DAILY Gabapentin 800 Mg Tablet 1,600 Mg PO HS TAKES 2 (800MG) TABLETS Instructions to patient/family Please see electronic discharge instructions given to patient. 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
--- NOTE | 2020-08-29 10:50 | NUR ---
Important Message from Medicare presented, reviewed, signed and placed in patient chart. Patient voiced no intention to appeal and deny any needs or further questions at this time.
--- NOTE | 2020-08-29 11:18 | NUR ---
CM/SS: Visited with pt as to plan for discharge - reminding pt to follow up on the paperwork that she needs to complete and submit to [employer] Medicaid. Plan: Pt will return to her sisters home ( she has been living with her) with no identified services. Note: Pt is not cooperative with home care services, not home bound, pt will follow up with her primary physician and a referral to a physician that Dr. Patel's office has recommended in [place]. Summary: Pt does have a ride home. She will call her sister and they will be able to come and get pt. She is reminded to complete the [employer] Medicaid application, submit the documents, copy the application and mail to [employer]. Pt verbalizes understanding. Pt is wished well.
[2020-08-29] MEDS: inSUlin ASPART (NovoLOG) 1 UNIT/0.01 ML (CHARGE PER UNIT) SC SCH (12:00)
--- NOTE | 2020-08-29 12:05 | NUR ---
NOVOLOG non administered patient delaying lunch until after d/c home. reviewed with patient dosage to administer prior to meal at home. verbalized understanding. BS checked.
--- NOTE | 2020-08-29 12:45 | NUR ---
VALENTE HARPER demonstrates understanding of discharge instructions and accurately returns instructions upon questioning. Copy of Post-Discharge Instructions and Medication Discharge Instructions given to patient. VALENTE HARPER is able to manage continuing needs after discharge. Patients belongings returned to patient. Skin dry and intact; no breakdown noted. Patient discharged from 3306-1 on 08-29-20 at 1245. VALENTE HARPER left floor via w/c, accompanied by staff.
== END 2020-08-29 12:45 | disposition home or self-care (01) | DRG 638 ==
LOC: EDUNIT# 02:40 → ER 02:41 → ICU 04:45 → CSD 08-26 02:39 → WS 08-26 10:30
PROVIDERS: ADMIT Internal Medicine; ATTEND Internal Medicine
DX: E11.00 Type 2 diabetes mellitus with hyperosmolarity without nonketotic hyperglycemic-hyperosmolar coma (NKHHC) (principal); N17.9 Acute kidney failure, unspecified; E87.1 Hypo-osmolality and hyponatremia; N39.0 Urinary tract infection, site not specified; Z79.01 Long term (current) use of anticoagulants; K21.9 Gastro-esophageal reflux disease without esophagitis; E78.5 Hyperlipidemia, unspecified; E11.40 Type 2 diabetes mellitus with diabetic neuropathy, unspecified; W19.XXXA Unspecified fall, initial encounter; G47.00 Insomnia, unspecified; Z91.14 Patient's other noncompliance with medication regimen; K31.84 Gastroparesis; B96.20 Unspecified Escherichia coli [E. coli] as the cause of diseases classified elsewhere
CPT/HCPCS: 36415; 36591; 51702; 70450; 71045; 72125; 73610; 80048; 80053; 81000; 82010; 82805; 82962; 83735; 83930; 84100; 84484; 85025; 87081; 87088; 87186; 90686; 93005; 93041; 96361; 96374; 96375; 99291

== ENCOUNTER 2020-09-19 18:26 | Emergency (ER) | payer MEDICARE ==
[~2020-09-19] VITALS: Ht 149 cm; Wt 58.0 kg
[~2020-09-19 18:26] MED LIST changes: +AMLO-250 PO; +AMLO-251 PO; -AMLO10TA7 PO; -AMLO5TAB9 PO; +CEPH250C PO; +INSU100I14 SQ
--- NOTE | 2020-09-19 19:19 | ED General ---
General Stated Complaint: LOW BLOOD SUGAR/VOMITING/DEHYDRATION Source of Information: Patient Exam Limitations: No Limitations History of Present Illness Date Seen by Provider: Sep 19, 2020 Time Seen by Provider: 19:19 Initial Comments To ER with nausea and vomiting for one week but she assures me that her high blood sugar didn't start until today. Timing/Duration: 1 Week Severity: Moderate Associated Systoms: Nausea/Vomiting Allergies and Home Medications Allergies Coded Allergies: ketorolac (Verified Allergy, Severe, ANAPHYLAXIS, PT TAKES ASA AT HOME, 03/06/19) ondansetron (Verified Allergy, Intermediate, RASH, 03/06/19) RASH/ HIVES scopolamine (Verified Allergy, Mild, Rash, 03/21/19) exenatide (Verified Allergy, Unknown, NAUSEA, 03/06/19) NON STOP VOMITING latex (Verified Allergy, Unknown, RASH, 03/06/19) metoclopramide (Verified Allergy, Unknown, RESTLESS LEGS, 03/06/19) erythromycin base (Verified Adverse Reaction, Unknown, 03/21/19) Home Medications Acetaminophen 325 Mg Capsule, 650 MG PO Q6H PRN for PAIN-MILD (1-4) OR TEMPATURE, (Reported) Apixaban 5 Mg Tablet, 5 MG PO BID, (Reported) Aspirin 81 Mg Tablet.dr, 81 MG PO DAILY, (Reported) Atorvastatin Calcium 20 Mg Tablet, 20 MG PO HS, (Reported) Cephalexin 250 Mg Capsule, 250 MG PO TID Prescribed by: QUIN CHAVES on 08/29/20 0840 Diphenhydramine HCl 25 Mg Tablet, 25-50 MG PO Q6H PRN for ALLERGY SYMPTOMS, (Reported) Gabapentin 800 Mg Tablet, 1,600 MG PO HS, (Reported) TAKES 2 (800MG) TABLETS Gabapentin 800 Mg Tablet, 800 MG PO DAILY, (Reported) Glucagon,Human Recombinant 1 Mg/Kit Soln, 1 MG INJ UD PRN for HYPERGLYCEMIA, (Reported) Glycerin/Propylene Glycol 1 Each Droperette, 2 DROPS OU PRN PRN for DRY EYES, (Reported) Insulin Aspart 300 Units/3 Ml Solution, UNITS SC TIDAC, (Reported) USES PER SLIDING SCALE Insulin Aspart 300 Units/3 Ml Solution, 50 UNITS SQ UD SLIDING SCALE INSULIN WITH MEALS- MAX TOTAL DAILY DOSE OF 50 UNITS USE 340B SAVINGS PLAN Prescribed by: JUAN DAVID BRADSHAW on 09/05/20 1423 Insulin Detemir 100 Unit/1 Ml Insuln.pen, 15 UNIT SQ BID, (Reported) Insulin Detemir 100 Unit/1 Ml Insuln.pen, 40 UNIT SQ HS USE 340B SAVINGS PLAN Prescribed by: JUAN DAVID BRADSHAW on 09/05/20 1423 Melatonin 5 Mg Tablet, 5 MG PO HS, (Reported) Omeprazole 20 Mg Capsule.dr, 20 MG PO DAILY, (Reported) Promethazine HCl 25 Mg Tablet, 25 MG PO Q6H PRN for NAUSEA/VOMITING Prescribed by: RIKKI PANCHAL on 08/18/20 1614 Patient Home Medication List Home Medication List Reviewed: Yes Review of Systems Review of Systems Constitutional: see HPI EENTM: see HPI Respiratory: no symptoms reported Cardiovascular: no symptoms reported Gastrointestinal: nausea, vomiting Genitourinary: no symptoms reported Musculoskeletal: no symptoms reported Skin: no symptoms reported Psychiatric/Neurological: No Symptoms Reported Hematologic/Lymphatic: No Symptoms Reported Immunological/Allergic: no symptoms reported Past Jcwcqwu-Qoecoc-Cubyev Hx Patient Social History Alcohol Beverage of Choice: Wine Drug of Choice: NARCOTIC ABUSE Type Used: Cigarettes Former Smoker, Quit: Nov 10, 2017 2nd Hand Smoke Exposure: No Recent Foreign Travel: No Contact w/Someone Who Travel: No Recent Hopitalizations: Yes Immunizations Up To Date Tetanus Booster (TDap): Unknown PED Vaccines UTD: No Date of Pneumonia Vaccine: Nov 06, 2019 Date of Influenza Vaccine: Nov 22, 2019 Seasonal Allergies Seasonal Allergies: Yes Past Medical History Surgeries: Yes (LITHOTRIPSY;LUMBAR SURGERY X 4;BMT'S;EGD'S WITH ESOPHAGEAL DILATIONS;) Cardiac, Coronary Stent, Ear Surgery, Gallbladder, Orthopedic, Renal Respiratory: Yes Chronic Bronchitis, Sleep Apnea Currently Using CPAP: No Currently Using BIPAP: No Cardiac: Yes (DVT'S IN ARMS; CARDIAC STENT X 1; CAROTID DISEASE;LINQ DEVICE) Chronic Edema/Swelling, Coronary Artery Disease, Deep Vein Thrombosis, High Cholesterol, Hypertension, Palpitations Neurological: Yes (NEUROPATHY IN HANDS AND FEET) Headaches /Migraines, Neuropathy 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 Disorders: No 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 Disorders: 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 Sexually Transmitted Disease: No HIV/AIDS: No Genitourinary: Yes Bladder Infection, Kidney Stones, Renal Failure Gastrointestinal: Yes (GASTRITIS;ESOPH STRICTURE/DILATION;GASTROPARESIS-CHRONIC N/V/ABD PAIN;DAVID) Gastroesophageal Reflux, Diverticulosis, Esophagitis, Irritable Bowel Musculoskeletal: Yes (CHRONIC GENERALIZED PAIN;CHRONIC BILAT SHOULDER PAIN;CHRONIC NECK PAIN ) Degenerate Disk Disease, Fibromyalgia, Chronic Back Pain Endocrine: Yes (NON-COMPLAINT;MULTIPLE EPISODES OF DKA-EASILY CONTROLLED ON INSULIN IN HOSP) Diabetes, Insulin dep HEENT: Yes (GLASSES; S/P BMT'S) Chronic Ear Infection Loss of Vision: Bilateral Hearing Impairment: Hard of Hearing Cancer: No Psychosocial: Yes Anxiety Integumentary: Yes Psoriasis Blood Disorders: No Adverse Reaction/Blood Tranf: No Family Medical History Cancer of mouth 19 FATHER ( of esophogeal cancer.) Cardiovascular disease 19 MOTHER G8 BROTHER Completed stroke 19 FATHER G8 BROTHER Diabetes mellitus G8 BROTHER FH: lung cancer 19 MOTHER Hypertension 19 FATHER Kidney disease 19 FATHER Myocardial infarction 19 MOTHER G8 BROTHER Respiratory disorder No Family History of: AIDS CAD Over 55 Years Old, CVA, Diabetes, GI Disease, Renal Disease PSH: -LINQ DEVICE PLACED 11/09/19 FOR REPORTED PALPITATIONS X 6 MONTHS, SINCE PERCOCET WAS DC'D -MULTIPLE CARDIAC CATHS--STENT X 1 TO LAD 07/13/15. LAST CATH 01/18/19--NO INTERVENTION -LUMBAR SPINE FUSION X 3--12/2002, 04/2007, AND 05/2007 -LUMBAR DISCECTOMY 10/2000--? LAMINECTOMY? -CERVICAL SPINE FUSION 11/2006 -CHOLECYSTECTOMY 1984 -BMT'S -LITHOTRIPSY AND RIGHT URETERAL STENT -EGD'S WITH ESOPHAGEAL DILATIONS -COLONOSCOPIES, LAST ONE 03/08/19 -PORT RIGHT CHEST -LEFT SHOULDER ROTATOR CUFF REPAIR 05/01/20--DR. PALACIOS -CONTINUOUS GLUCOSE MONITOR PRESENT 06/25/20--LLQ OF ABDOMEN Physical Exam Vital Signs Vital Signs - First Documented 09/19/20 19:15 Temp 37.2 Pulse 102 Resp 18 B/P (MAP) 107/75 (86) Pulse Ox 98 Capillary Refill : Height, Weight, BMI Height: 5'1.00" Weight: 122lbs. 1.0oz. [id number]; 27.64 BMI Method:Estimated General Appearance: No Apparent Distress, WD/WN, Chronically ill Eyes: Bilateral Eye Normal Inspection, Bilateral Eye PERRL, Bilateral Eye EOMI Neck: Full Range of Motion, Normal Inspection Respiratory: Lungs Clear, Normal Breath Sounds, No Accessory Muscle Use, No Respiratory Distress Cardiovascular: Regular Rate, Rhythm, Normal Peripheral Pulses Gastrointestinal: Normal Bowel Sounds, Non Tender, Soft Neurologic/Psychiatric: Alert, Oriented x3 Skin: Normal Color, Warm/Dry Procedures/Interventions Date of ETT Placement: Dec 30, 2019 Time of ETT Placement: 0750 Progress/Results/Core Measures Suspected Sepsis SIRS Temperature: Pulse: Respiratory Rate: Laboratory Tests 09/19/20 19:28: White Blood Count 11.3H Blood Pressure / Mean: Laboratory Tests 09/19/20 19:28: Creatinine 1.87H, Platelet Count 294, Total Bilirubin 0.5 Results/Orders Lab Results Laboratory Tests Test 09/19/20 19:26 09/19/20 19:28 Range/Units Glucometer > 600 *H 70-110 MG/DL White Blood Count 11.3 H 4.3-11.0 10^3/uL Red Blood Count 4.15 3.80-5.11 10^6/uL Hemoglobin 12.4 11.5-16.0 g/dL Hematocrit 36 35-52 % Mean Corpuscular Volume 87 80-99 fL Mean Corpuscular Hemoglobin 30 25-34 pg Mean Corpuscular Hemoglobin Concent 34 32-36 g/dL Red Cell Distribution Width 13.5 10.0-14.5 % Platelet Count 294 130-400 10^3/uL Mean Platelet Volume 10.2 9.0-12.2 fL Immature Granulocyte % (Auto) 0 % Neutrophils (%) (Auto) 62 42-75 % Lymphocytes (%) (Auto) 30 12-44 % Monocytes (%) (Auto) 5 0-12 % Eosinophils (%) (Auto) 1 0-10 % Basophils (%) (Auto) 1 0-10 % Neutrophils # (Auto) 7.0 1.8-7.8 10^3/uL Lymphocytes # (Auto) 3.4 1.0-4.0 10^3/uL Monocytes # (Auto) 0.6 0.0-1.0 10^3/uL Eosinophils # (Auto) 0.1 0.0-0.3 10^3/uL Basophils # (Auto) 0.1 0.0-0.1 10^3/uL Immature Granulocyte # (Auto) 0.0 0.0-0.1 10^3/uL Sodium Level 128 L 135-145 MMOL/L Potassium Level 4.8 3.6-5.0 MMOL/L Chloride Level 97 L 98-107 MMOL/L Carbon Dioxide Level 15 L 21-32 MMOL/L Anion Gap 16 H 5-14 MMOL/L Blood Urea Nitrogen 34 H 7-18 MG/DL Creatinine 1.87 H 0.60-1.30 MG/DL Estimat Glomerular Filtration Rate 27 BUN/Creatinine Ratio 18 Glucose Level 698 *H 70-105 MG/DL Calcium Level 8.8 8.5-10.1 MG/DL Corrected Calcium 8.9 8.5-10.1 MG/DL Total Bilirubin 0.5 0.1-1.0 MG/DL Aspartate Amino Transf (AST/SGOT) 7 5-34 U/L Alanine Aminotransferase (ALT/SGPT) 7 0-55 U/L Alkaline Phosphatase 127 40-136 U/L Total Protein 7.1 6.4-8.2 GM/DL Albumin 3.9 3.2-4.5 GM/DL Beta-Hydroxybutyrate (Chem panel) 2.77 H 0.00-0.27 MMOL/L My Orders Orders - JR MARIE [employer]INTENA[employer]CE [employer]SMAN Beta Hydroxybutyrate (09/19/20 19:11) Cbc With Automated Diff (09/19/20 19:11) Comprehensive Metabolic Panel (09/19/20 19:11) Ua Culture If Indicated (09/19/20 19:11) Ed Iv/Invasive Line Start (09/19/20 19:11) Ekg Tracing (09/19/20 19:16) Insulin (Regular) Human (Novolin R (Per (09/19/20 19:30) Ns Iv 1000 Ml (Sodium Chloride 0.9%) (09/19/20 19:30) Diphenhydramine Injection (Benadryl Inje (09/19/20 19:30) Promethazine Injection (Phenergan Injec (09/19/20 19:30) Ns Iv 1000 Ml (Sodium Chloride 0.9%) (09/19/20 19:45) Drug Screen Stat (Urine) (09/19/20 19:40) Ns (Ivpb) (Sodium Chloride 0.9% Ivpb Bag (09/19/20 19:41) Medications Given in ED Current Medications Medications Dose Ordered Sig/Jackie Route Start Time Stop Time Status Last Admin Dose Admin Diphenhydramine HCl 25 mg ONCE ONCE IVP 09/19/20 19:30 09/19/20 19:31 DC 09/19/20 19:43 25 MG Insulin Human Regular 10 unit ONCE ONCE IV 09/19/20 19:30 09/19/20 19:31 DC 09/19/20 19:38 10 UNIT Vital Signs/I&O 09/19/20 19:15 Temp 37.2 Pulse 102 Resp 18 B/P (MAP) 107/75 (86) Pulse Ox 98 Capillary Refill : Departure Communication (Admissions) 2020-patient is receiving 10 units of IV regular insulin here as well as a 2 L normal saline fluid bolus. Patient became upset with the RN when I ordered the Benadryl to be added to the bag of fluids instead of a fast push as she would request. States she must have it before the phenergan and it must be given as a fast push. I spoke with Dr. Berry, due to limited bed availability in the intensive care unit here we will transfer her to [facility] on insulin drip. Impression Primary Impression: Acute kidney injury superimposed on chronic kidney disease Additional Impression: Diabetic ketoacidosis Disposition: XF SHT-TRM HOSP Condition: Stable Departure-Patient Inst. Referrals: CINDY CALABRESE DO (PCP/Family) Primary Care Physician JR MARIE APRN Sep 19, 2020 19:19
[2020-09-19] MEDS ORDERED: inSUlin (REGULAR) HUMAN 1 UNIT/0.01 ML (CHARGE PER UNIT) IV ONE (19:30)
[2020-09-19] MEDS ORDERED: PROMETHAZINE INJ 25 MG/ML (PHENERGAN) AMP IVP ONE (19:30)
[2020-09-19] MEDS ORDERED: diphenhydrAMINE 50 MG/ML INJ (BENADRYL) IVP ONE (19:30)
[2020-09-19] MEDS ORDERED: NS IV 1000 ML 1,000 ML IV SCH ×2 (19:30→19:45)
--- NOTE | 2020-09-19 19:30 | NUR ---
Pt arrives by POV with c/o n/v and reading of "Hi" on her home glucometer. Pt states her n/v started on Wednesday but her fsbs have been normal until today. States that she hasn't been able to keep her Phenergan down.
[2020-09-19 19:36] LABS: BASOPHILS # (AUTO) 0.1 10^3/uL (0.0-0.1); BASOPHILS % (AUTO) 1 % (0-10); EOSINOPHILS # (AUTO) 0.1 10^3/uL (0.0-0.3); EOSINOPHILS % (AUTO) 1 % (0-10); HEMATOCRIT 36 % (35-52); HEMOGLOBIN 12.4 g/dL (11.5-16.0); LYMPHOCYTES # (AUTO) 3.4 10^3/uL (1.0-4.0); LYMPHOCYTES % (AUTO) 30 % (12-44); MEAN CORPUSCULAR HEMOGLOBIN 30 pg (25-34); MEAN CORPUSCULAR HGB CONC 34 g/dL (32-36); MEAN CORPUSCULAR VOLUME 87 fL (80-99); MEAN PLATELET VOLUME 10.2 fL (9.0-12.2); MONOCYTES # (AUTO) 0.6 10^3/uL (0.0-1.0); MONOCYTES % (AUTO) 5 % (0-12); NEUTROPHILS % (AUTO) 62 % (42-75); PLATELET COUNT 294 10^3/uL (130-400); WHITE BLOOD COUNT 11.3 10^3/uL (4.3-11.0)
[2020-09-19] MEDS ORDERED: NS (IVPB) 100 ML ONE (19:41)
[2020-09-19 19:45] LABS: ALBUMIN 3.9 GM/DL (3.2-4.5); POTASSIUM 4.8 MMOL/L (3.6-5.0)
[2020-09-19 19:46] LABS: CALCIUM 8.8 MG/DL (8.5-10.1)
[2020-09-19 19:47] LABS: TOTAL PROTEIN 7.1 GM/DL (6.4-8.2)
[2020-09-19 19:49] LABS: BILIRUBIN,TOTAL 0.5 MG/DL (0.1-1.0)
[2020-09-19 19:51] LABS: CREATININE SERUM 1.87 MG/DL (0.60-1.30)
[2020-09-19 21:30] VITALS: BP 141/81
== END 2020-09-19 21:37 | disposition short-term general hospital (02) ==
LOC: EDUNIT# 18:26 → ER 18:28
DX: N17.9 Acute kidney failure, unspecified (principal); E11.10 Type 2 diabetes mellitus with ketoacidosis without coma; K21.9 Gastro-esophageal reflux disease without esophagitis; E78.00 Pure hypercholesterolemia, unspecified; Z82.49 Family history of ischemic heart disease and other diseases of the circulatory system; Z83.3 Family history of diabetes mellitus; Z80.1 Family history of malignant neoplasm of trachea, bronchus and lung; Z80.0 Family history of malignant neoplasm of digestive organs; Z95.5 Presence of coronary angioplasty implant and graft; Z87.891 Personal history of nicotine dependence; Z86.718 Personal history of other venous thrombosis and embolism; Z88.1 Allergy status to other antibiotic agents; Z91.040 Latex allergy status; Z88.8 Allergy status to other drugs, medicaments and biological substances; Z79.4 Long term (current) use of insulin; Z79.01 Long term (current) use of anticoagulants; Z79.82 Long term (current) use of aspirin
CPT/HCPCS: 36415; 80053; 82010; 82962; 85025; 93005

== ENCOUNTER 2020-09-29 12:49 | Emergency (ER) | payer MEDICARE ==
[~2020-09-29] VITALS: Ht 148.8 cm; Wt 59.0 kg
--- NOTE | 2020-09-29 13:15 | NUR ---
FS BS DONE GLUCOSE TO HI TO READ.
[2020-09-29] MEDS ORDERED: NS IV 1000 ML 1,000 ML IV STA (13:23)
[2020-09-29] MEDS ORDERED: diphenhydrAMINE 50 MG/ML INJ (BENADRYL) IV STA (13:23)
[2020-09-29] MEDS ORDERED: PROMETHAZINE INJ 25 MG/ML (PHENERGAN) AMP IVP STA (13:23)
--- NOTE | 2020-09-29 13:42 | ED General ---
General Chief Complaint: Glucose Problems Stated Complaint: ELEV BLOOD SUGAR Nursing Triage Note: AMB TO ROOM REPORT THAT HER BS HAVE BEEN HI. TOOK 12U REG NOVLOG AT NOON Nursing Sepsis Screen: No Definite Risk Source of Information: Patient Exam Limitations: No Limitations History of Present Illness Date Seen by Provider: Sep 29, 2020 Time Seen by Provider: 13:18 Initial Comments Here with report of elevated blood sugar this morning. States that it was fine yesterday. Woke up with nausea and noted the blood sugar elevation. It has not improved. Nausea remains. She states the nausea was bad enough that she did not even take her pain medicine this morning although her pain medicine is not really effective for her. Denies fever chills. States that she is hiding out has not had any contact with anybody with Covid. Last admission for DKA was on 09/18 with discharge a few days later from [facility]. Timing/Duration: 4-6 Hours, 12-24 Hours Severity: Moderate Associated Systoms: No Chest Pain, No Cough, No Fever/Chills; Nausea/Vomiting; No Shortness of Air; Weakness Allergies and Home Medications Allergies Coded Allergies: ketorolac (Verified Allergy, Severe, ANAPHYLAXIS, PT TAKES ASA AT HOME, 03/06/19) ondansetron (Verified Allergy, Intermediate, RASH, 03/06/19) RASH/ HIVES scopolamine (Verified Allergy, Mild, Rash, 03/21/19) exenatide (Verified Allergy, Unknown, NAUSEA, 03/06/19) NON STOP VOMITING latex (Verified Allergy, Unknown, RASH, 03/06/19) metoclopramide (Verified Allergy, Unknown, RESTLESS LEGS, 03/06/19) erythromycin base (Verified Adverse Reaction, Unknown, 03/21/19) Home Medications Acetaminophen 325 Mg Capsule, 650 MG PO Q6H PRN for PAIN-MILD (1-4) OR TEMPATURE, (Reported) Apixaban 5 Mg Tablet, 5 MG PO BID, (Reported) Aspirin 81 Mg Tablet.dr, 81 MG PO DAILY, (Reported) Atorvastatin Calcium 20 Mg Tablet, 20 MG PO HS, (Reported) Cephalexin 250 Mg Capsule, 250 MG PO TID Prescribed by: QUIN CHAVES on 08/29/20 0840 Diphenhydramine HCl 25 Mg Tablet, 25-50 MG PO Q6H PRN for ALLERGY SYMPTOMS, (Reported) Gabapentin 800 Mg Tablet, 1,600 MG PO HS, (Reported) TAKES 2 (800MG) TABLETS Gabapentin 800 Mg Tablet, 800 MG PO DAILY, (Reported) Glucagon,Human Recombinant 1 Mg/Kit Soln, 1 MG INJ UD PRN for HYPERGLYCEMIA, (Reported) Glycerin/Propylene Glycol 1 Each Droperette, 2 DROPS OU PRN PRN for DRY EYES, (Reported) Insulin Aspart 300 Units/3 Ml Solution, UNITS SC TIDAC, (Reported) USES PER SLIDING SCALE Insulin Aspart 300 Units/3 Ml Solution, 50 UNITS SQ UD SLIDING SCALE INSULIN WITH MEALS- MAX TOTAL DAILY DOSE OF 50 UNITS USE 340B SAVINGS PLAN Prescribed by: JUAN DAVID BRADSHAW on 09/05/20 1423 Insulin Detemir 100 Unit/1 Ml Insuln.pen, 15 UNIT SQ BID, (Reported) Insulin Detemir 100 Unit/1 Ml Insuln.pen, 40 UNIT SQ HS USE 340B SAVINGS PLAN Prescribed by: JUAN DAVID BRADSHAW on 09/05/20 1423 Melatonin 5 Mg Tablet, 5 MG PO HS, (Reported) Omeprazole 20 Mg Capsule.dr, 20 MG PO DAILY, (Reported) Promethazine HCl 25 Mg Tablet, 25 MG PO Q6H PRN for NAUSEA/VOMITING Prescribed by: RIKKI PANCHAL on 08/18/20 1614 Patient Home Medication List Home Medication List Reviewed: Yes Review of Systems Review of Systems Constitutional: see HPI; No chills, No fever EENTM: no symptoms reported Respiratory: No cough, No short of breath Cardiovascular: No chest pain, No edema Gastrointestinal: No abdominal pain; nausea, vomiting Genitourinary: No dysuria, No pain Musculoskeletal: neck pain (Chronic) Skin: no symptoms reported Psychiatric/Neurological: Denies Headache; Weakness All Other Systems Reviewed Negative Unless Noted: Yes Past [id number]-[id number] Hx Past Med/Social Hx: Reviewed Nursing Past Med/Soc Hx Patient Social History Alcohol Use: Denies Use Number of Drinks Today: Alcohol Beverage of Choice: Wine Recreational Drug Use: Yes Drug of Choice: NARCOTIC ABUSE Smoking Status: Current Everyday Smoker Type Used: Cigarettes Former Smoker, Quit: Nov 10, 2017 2nd Hand Smoke Exposure: No Recent Foreign Travel: No Contact w/Someone Who Travel: No Recent Infectious Disease Expo: No Recent Hopitalizations: Yes Immunizations Up To Date Tetanus Booster (TDap): Unknown PED Vaccines UTD: No Date of Pneumonia Vaccine: Nov 06, 2019 Date of Influenza Vaccine: Nov 22, 2019 Seasonal Allergies Seasonal Allergies: Yes Past Medical History Surgeries: Yes (LITHOTRIPSY;LUMBAR SURGERY X 4;BMT'S;EGD'S WITH ESOPHAGEAL DILATIONS;) Cardiac, Coronary Stent, Ear Surgery, Gallbladder, Orthopedic, Renal Respiratory: Yes Chronic Bronchitis, Sleep Apnea Currently Using CPAP: No Currently Using BIPAP: No Cardiac: Yes (DVT'S IN ARMS; CARDIAC STENT X 1; CAROTID DISEASE;LINQ DEVICE) Chronic Edema/Swelling, Coronary Artery Disease, Deep Vein Thrombosis, High Cholesterol, Hypertension, Palpitations Neurological: Yes (NEUROPATHY IN HANDS AND FEET) Headaches /Migraines, Neuropathy 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 Disorders: No 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 Disorders: Denies [employer] History: Menopausal Sexually Transmitted Disease: No HIV/AIDS: No Genitourinary: Yes Bladder Infection, Kidney Stones, Renal Failure Gastrointestinal: Yes (GASTRITIS;ESOPH STRICTURE/DILATION;GASTROPARESIS-CHRONIC N/V/ABD PAIN;DAVID) Gastroesophageal Reflux, Diverticulosis, Esophagitis, Irritable Bowel Musculoskeletal: Yes (CHRONIC GENERALIZED PAIN;CHRONIC BILAT SHOULDER PAIN;CHRONIC NECK PAIN ) Degenerate Disk Disease, Fibromyalgia, Chronic Back Pain Endocrine: Yes (NON-COMPLAINT;MULTIPLE EPISODES OF DKA-EASILY CONTROLLED ON INSULIN IN HOSP) Diabetes, Insulin dep HEENT: Yes (GLASSES; S/P BMT'S) Chronic Ear Infection Loss of Vision: Bilateral Hearing Impairment: Hard of Hearing Cancer: No Psychosocial: Yes Anxiety Integumentary: Yes Psoriasis Blood Disorders: No Adverse Reaction/Blood Tranf: No Family Medical History Reviewed Nursing Family Hx Cancer of mouth 19 FATHER ( of esophogeal cancer.) Cardiovascular disease 19 MOTHER G8 BROTHER Completed stroke 19 FATHER G8 BROTHER Diabetes mellitus G8 BROTHER FH: lung cancer 19 MOTHER Hypertension 19 FATHER Kidney disease 19 FATHER Myocardial infarction 19 MOTHER G8 BROTHER Respiratory disorder No Family History of: AIDS CAD Over 55 Years Old, CVA, Diabetes, GI Disease, Renal Disease PSH: -LINQ DEVICE PLACED 11/09/19 FOR REPORTED PALPITATIONS X 6 MONTHS, SINCE PERCOCET WAS DC'D -MULTIPLE CARDIAC CATHS--STENT X 1 TO LAD 07/13/15. LAST CATH 01/18/19--NO INTERVENTION -LUMBAR SPINE FUSION X 3--12/2002, 04/2007, AND 05/2007 -LUMBAR DISCECTOMY 10/2000--? LAMINECTOMY? -CERVICAL SPINE FUSION 11/2006 -CHOLECYSTECTOMY 1984 -BMT'S -LITHOTRIPSY AND RIGHT URETERAL STENT -EGD'S WITH ESOPHAGEAL DILATIONS -COLONOSCOPIES, LAST ONE 03/08/19 -PORT RIGHT CHEST -LEFT SHOULDER ROTATOR CUFF REPAIR 05/01/20--DR. PALACIOS -CONTINUOUS GLUCOSE MONITOR PRESENT 06/25/20--LLQ OF ABDOMEN Physical Exam Vital Signs Vital Signs - First Documented 09/29/20 12:55 Temp 36.5 Pulse 86 Resp 18 B/P (MAP) 149/100 (116) Pulse Ox 97 Capillary Refill : Less Than 3 Seconds Height, Weight, BMI Height: 5'1.00" Weight: 122lbs. 1.0oz. 55.994309wp; 26.00 BMI Method:Estimated General Appearance: No Apparent Distress, Chronically ill HEENT: PERRL/EOMI, Pharynx Normal Neck: Non Tender, Supple Respiratory: Lungs Clear, Normal Breath Sounds Cardiovascular: Regular Rate, Rhythm, No Murmur Gastrointestinal: Soft, Tenderness (Mild upper abdominal pain to palpation.) Back: Normal Inspection, No CVA Tenderness, No Vertebral Tenderness Extremity: Normal Range of Motion, Non Tender, No Calf Tenderness Neurologic/Psychiatric: Alert, Oriented x3 Skin: Normal Color, Warm/Dry Procedures/Interventions Date of ETT Placement: Dec 30, 2019 Time of ETT Placement: 0750 Progress/Results/Core Measures Suspected Sepsis Recent Fever Within 48 Hours: No Infection Criteria Present: None New/Unexplained Altered Menta: No Sepsis Screen: No Definite Risk SIRS Temperature: Pulse: 86 Respiratory Rate: 18 Laboratory Tests 09/29/20 13:45: White Blood Count 9.3 Blood Pressure 149 /100 Mean: 116 Laboratory Tests 09/29/20 13:45: Creatinine 1.59H, Platelet Count 297, Total Bilirubin 0.3 Results/Orders Lab Results Laboratory Tests Test 09/29/20 13:05 09/29/20 13:45 09/29/20 13:55 09/29/20 15:02 Range/Units Glucometer > 600 *H 511 *H 70-110 MG/DL White Blood Count 9.3 4.3-11.0 10^3/uL Red Blood Count 4.09 3.80-5.11 10^6/uL Hemoglobin 12.5 11.5-16.0 g/dL Hematocrit 37 35-52 % Mean Corpuscular Volume 90 80-99 fL Mean Corpuscular Hemoglobin 31 25-34 pg Mean Corpuscular Hemoglobin Concent 34 32-36 g/dL Red Cell Distribution Width 13.0 10.0-14.5 % Platelet Count 297 130-400 10^3/uL Mean Platelet Volume 10.4 9.0-12.2 fL Immature Granulocyte % (Auto) 0 % Neutrophils (%) (Auto) 61 42-75 % Lymphocytes (%) (Auto) 28 12-44 % Monocytes (%) (Auto) 5 0-12 % Eosinophils (%) (Auto) 5 0-10 % Basophils (%) (Auto) 1 0-10 % Neutrophils # (Auto) 5.7 1.8-7.8 10^3/uL Lymphocytes # (Auto) 2.6 1.0-4.0 10^3/uL Monocytes # (Auto) 0.4 0.0-1.0 10^3/uL Eosinophils # (Auto) 0.5 H 0.0-0.3 10^3/uL Basophils # (Auto) 0.1 0.0-0.1 10^3/uL Immature Granulocyte # (Auto) 0.0 0.0-0.1 10^3/uL Sodium Level 131 L 135-145 MMOL/L Potassium Level 5.0 3.6-5.0 MMOL/L Chloride Level 100 98-107 MMOL/L Carbon Dioxide Level 18 L 21-32 MMOL/L Anion Gap 13 5-14 MMOL/L Blood Urea Nitrogen 28 H 7-18 MG/DL Creatinine 1.59 H 0.60-1.30 MG/DL Estimat Glomerular Filtration Rate 33 BUN/Creatinine Ratio 18 Glucose Level 730 *H 70-105 MG/DL Calcium Level 9.0 8.5-10.1 MG/DL Corrected Calcium 9.1 8.5-10.1 MG/DL Phosphorus Level 4.4 2.3-4.7 MG/DL Magnesium Level 2.0 1.6-2.4 MG/DL Total Bilirubin 0.3 0.1-1.0 MG/DL Aspartate Amino Transf (AST/SGOT) 7 5-34 U/L Alanine Aminotransferase (ALT/SGPT) 9 0-55 U/L Alkaline Phosphatase 116 40-136 U/L C-Reactive Protein High Sensitivity 0.17 0.00-0.50 MG/DL Total Protein 7.1 6.4-8.2 GM/DL Albumin 3.9 3.2-4.5 GM/DL Urine Color YELLOW Urine Clarity CLEAR Urine pH 6.5 5-9 Urine Specific [place] 1.010 L 1.016-1.022 Urine Protein 2+ H NEGATIVE Urine Glucose (UA) 3+ H NEGATIVE Urine Ketones NEGATIVE NEGATIVE Urine Nitrite NEGATIVE NEGATIVE Urine Bilirubin NEGATIVE NEGATIVE Urine Urobilinogen 0.2 < = 1.0 MG/DL Urine Leukocyte Esterase NEGATIVE NEGATIVE Urine RBC (Auto) NEGATIVE NEGATIVE Urine RBC RARE /HPF Urine WBC NONE /HPF Urine Squamous Epithelial Cells RARE /HPF Urine Crystals NONE /LPF Urine Bacteria NEGATIVE /HPF Urine Casts NONE /LPF Urine Mucus NEGATIVE /LPF Urine Culture Indicated NO Urine Opiates Screen POSITIVE H NEGATIVE Urine Oxycodone Screen NEGATIVE NEGATIVE Urine Methadone Screen NEGATIVE NEGATIVE Urine Propoxyphene Screen NEGATIVE NEGATIVE Urine Barbiturates Screen NEGATIVE NEGATIVE Ur Tricyclic Antidepressants Screen NEGATIVE NEGATIVE Urine Phencyclidine Screen NEGATIVE NEGATIVE Urine Amphetamines Screen NEGATIVE NEGATIVE Urine Methamphetamines Screen NEGATIVE NEGATIVE Urine Benzodiazepines Screen NEGATIVE NEGATIVE Urine Cocaine Screen NEGATIVE NEGATIVE Urine Cannabinoids Screen NEGATIVE NEGATIVE Test 09/29/20 15:46 Range/Units Glucometer 300 H 70-110 MG/DL My Orders Orders - VALENTIN YANES MD Promethazine Injection (Phenergan Injec (09/29/20 13:23) Ns Iv 1000 Ml (Sodium Chloride 0.9%) (09/29/20 13:23) Ed Iv/Invasive Line Start (09/29/20 13:23) Diphenhydramine Injection (Benadryl Inje (09/29/20 13:23) Cbc With Automated Diff (09/29/20 13:23) Comprehensive Metabolic Panel (09/29/20 13:23) Hs C Reactive Protein (09/29/20 13:23) Drug Screen Stat (Urine) (09/29/20 13:23) Magnesium (09/29/20 13:23) Ua Culture If Indicated (09/29/20 13:23) Phosphorus (09/29/20 13:23) Insulin (Regular) Human (Novolin R (Per (09/29/20 14:21) Insulin (Regular) Human (Novolin R (Per (09/29/20 15:07) Vital Signs/I&O 09/29/20 09/29/20 12:55 14:38 Temp 36.5 Pulse 86 85 Resp 18 B/P (MAP) 149/100 (116) 124/94 Pulse Ox 97 97 Capillary Refill : Less Than 3 Seconds Blood Pressure Mean: 116 Progress Note : Progress Note Seen and evaluated. IV, labs and UA ordered. Normal saline 1 L bolus. Patient asked for Phenergan and Benadryl for nausea. Phenergan 25 mg IV and Benadryl 25 mg IV ordered. Monitor patient. Insulin 15 units IV given. 1510: Blood sugar now 511. We will repeat insulin 15 units IV. She has not had any vomiting throughout the stay and there are no ketones in the urine. Anticipate discharge home but will continue to monitor. This was discussed with the patient who agrees. 1555: Patient is doing better. She is complaining of cramps in her legs. Tylenol 650 mg p.o. given. Blood sugar now in the 300s. Discharged home with return precautions. Patient verbalized understanding of instructions and agreement with plan. Departure Impression Primary Impression: Uncontrolled type 1 diabetes mellitus with hyperglycemia Additional Impression: Nausea and vomiting Qualified Codes: R11.2 - Nausea with vomiting, unspecified Disposition: 01 HOME, SELF-CARE Condition: Stable Departure-Patient Inst. Decision time for Depature: 15:56 Referrals: CINDY CALABRESE DO (PCP/Family) Primary Care Physician Patient Instructions: Diabetes Type 1, Adult (DC), Nausea and Vomiting, Adult (DC) Add. Discharge Instructions: All discharge instructions reviewed with patient and/or family. Voiced understanding. Continue home medications as previously prescribed. You need to carefully monitor and manage her blood sugar. Avoid sweets. Follow-up with your doctor this week for recheck and further evaluation. Return for worse pain, fever, vomiting, weakness, breathing problems or other concerns as needed. VALENTIN YANES MD Sep 29, 2020 13:42
[2020-09-29 13:52] LABS: BASOPHILS # (AUTO) 0.1 10^3/uL (0.0-0.1); BASOPHILS % (AUTO) 1 % (0-10); EOSINOPHILS # (AUTO) 0.5 10^3/uL (0.0-0.3); EOSINOPHILS % (AUTO) 5 % (0-10); HEMATOCRIT 37 % (35-52); HEMOGLOBIN 12.5 g/dL (11.5-16.0); LYMPHOCYTES # (AUTO) 2.6 10^3/uL (1.0-4.0); LYMPHOCYTES % (AUTO) 28 % (12-44); MEAN CORPUSCULAR HEMOGLOBIN 31 pg (25-34); MEAN CORPUSCULAR HGB CONC 34 g/dL (32-36); MEAN CORPUSCULAR VOLUME 90 fL (80-99); MEAN PLATELET VOLUME 10.4 fL (9.0-12.2); MONOCYTES # (AUTO) 0.4 10^3/uL (0.0-1.0); MONOCYTES % (AUTO) 5 % (0-12); NEUTROPHILS # (AUTO) 5.7 10^3/uL (1.8-7.8); NEUTROPHILS % (AUTO) 61 % (42-75); PLATELET COUNT 297 10^3/uL (130-400); WHITE BLOOD COUNT 9.3 10^3/uL (4.3-11.0)
[2020-09-29 14:01] LABS: BILIRUBIN,URINE NEGATIVE (NEGATIVE); CLARITY,URINE CLEAR; COLOR,URINE YELLOW; GLUCOSE, URINE (UA) 3+ (NEGATIVE); KETONES,URINE NEGATIVE (NEGATIVE); LEUKOCYTE ESTERASE ,URINE NEGATIVE (NEGATIVE); NITRITE,URINE NEGATIVE (NEGATIVE); PH,URINE 6.5 (5-9); PROTEIN,URINE 2+ (NEGATIVE)
[2020-09-29 14:04] LABS: ALBUMIN 3.9 GM/DL (3.2-4.5)
[2020-09-29 14:07] LABS: TOTAL PROTEIN 7.1 GM/DL (6.4-8.2)
[2020-09-29 14:08] LABS: BACTERIA,URINE NEGATIVE /HPF; RBC,URINE RARE /HPF; SQUAMOUS EPITHELIAL CELL,UR RARE /HPF
[2020-09-29 14:08] LABS: BILIRUBIN,TOTAL 0.3 MG/DL (0.1-1.0)
[2020-09-29 14:10] LABS: CREATININE SERUM 1.59 MG/DL (0.60-1.30); PHOSPHORUS 4.4 MG/DL (2.3-4.7)
[2020-09-29 14:13] LABS: AMPHETAMINE SCREEN, URINE NEGATIVE (NEGATIVE); BARBITURATE SCREEN URINE NEGATIVE (NEGATIVE); BENZODIAZEPINES SCREEN URINE NEGATIVE (NEGATIVE); CANNABINOID SCREEN, URINE NEGATIVE (NEGATIVE); COCAINE SCREEN URINE NEGATIVE (NEGATIVE); METHADONE STAT NEGATIVE (NEGATIVE); METHAMPHETAMINE SCREEN URINE S NEGATIVE (NEGATIVE); OPIATE SCREEN URINE POSITIVE (NEGATIVE); OXYCODONE STAT NEGATIVE (NEGATIVE); PROPOXYPHENE STAT NEGATIVE (NEGATIVE); TRICYCLIC ANTIDEPRESSANTS SCRE NEGATIVE (NEGATIVE)
[2020-09-29] MEDS ORDERED: inSUlin (REGULAR) HUMAN 1 UNIT/0.01 ML (CHARGE PER UNIT) IV STA ×2 (14:21→15:07)
--- NOTE | 2020-09-29 15:15 | NUR ---
AMB TO BATHROOM
[2020-09-29] MEDS ORDERED: ACETAMINOPHEN 325 MG TABLET PO STA (15:54)
--- NOTE | 2020-09-29 15:55 | NUR ---
C/O CRAMPING IN LEGS NOTIFIED OFFERD TYLENOL PATIENT WILL TAKE IT.
[2020-09-29 16:08] VITALS: BP 106/86
== END 2020-09-29 16:07 | disposition home or self-care (01) ==
LOC: EDUNIT# 12:49 → ER 12:50
DX: E10.65 Type 1 diabetes mellitus with hyperglycemia (principal); E10.40 Type 1 diabetes mellitus with diabetic neuropathy, unspecified; I10 Essential (primary) hypertension; E78.00 Pure hypercholesterolemia, unspecified; I25.10 Atherosclerotic heart disease of native coronary artery without angina pectoris; G43.909 Migraine, unspecified, not intractable, without status migrainosus; K21.9 Gastro-esophageal reflux disease without esophagitis; K58.9 Irritable bowel syndrome, unspecified; G89.29 Other chronic pain; F41.9 Anxiety disorder, unspecified; F17.210 Nicotine dependence, cigarettes, uncomplicated; Z80.0 Family history of malignant neoplasm of digestive organs; Z80.1 Family history of malignant neoplasm of trachea, bronchus and lung; Z79.82 Long term (current) use of aspirin; Z79.01 Long term (current) use of anticoagulants; Z95.5 Presence of coronary angioplasty implant and graft; Z86.718 Personal history of other venous thrombosis and embolism; Z88.5 Allergy status to narcotic agent; Z88.8 Allergy status to other drugs, medicaments and biological substances; Z91.040 Latex allergy status; Z88.1 Allergy status to other antibiotic agents
CPT/HCPCS: 36415; 80053; 80306; 81000; 82962; 83735; 84100; 85025; 86141

== ENCOUNTER 2020-10-07 15:50 | Emergency (ER) | payer MEDICARE ==
[~2020-10-07] VITALS: Ht 150 cm; Wt 61.2 kg
--- NOTE | 2020-10-07 16:07 | ED General ---
General Stated Complaint: HIGH BLOOD SUGAR Source of Information: Patient Exam Limitations: No Limitations History of Present Illness Date Seen by Provider: Oct 07, 2020 Time Seen by Provider: 16:06 Initial Comments To ER with hyperglycemia which she believes is related to "raging sinus infection". Timing/Duration: 1-2 Days Severity: Moderate Associated Systoms: Denies Symptoms Allergies and Home Medications Allergies Coded Allergies: ketorolac (Verified Allergy, Severe, ANAPHYLAXIS, PT TAKES ASA AT HOME, 03/06/19) ondansetron (Verified Allergy, Intermediate, RASH, 03/06/19) RASH/ HIVES scopolamine (Verified Allergy, Mild, Rash, 03/21/19) exenatide (Verified Allergy, Unknown, NAUSEA, 03/06/19) NON STOP VOMITING latex (Verified Allergy, Unknown, RASH, 03/06/19) metoclopramide (Verified Allergy, Unknown, RESTLESS LEGS, 03/06/19) erythromycin base (Verified Adverse Reaction, Unknown, 03/21/19) Home Medications Acetaminophen 325 Mg Capsule, 650 MG PO Q6H PRN for PAIN-MILD (1-4) OR TEMPATURE, (Reported) Amoxicillin 500 Mg Capsule, 1,000 MG PO BID Prescribed by: JR MARIE on 10/07/20 1832 Apixaban 5 Mg Tablet, 5 MG PO BID, (Reported) Aspirin 81 Mg Tablet.dr, 81 MG PO DAILY, (Reported) Atorvastatin Calcium 20 Mg Tablet, 20 MG PO HS, (Reported) Cephalexin 250 Mg Capsule, 250 MG PO TID Prescribed by: QUIN CHAVES on 08/29/20 0840 Diphenhydramine HCl 25 Mg Tablet, 25-50 MG PO Q6H PRN for ALLERGY SYMPTOMS, (Reported) Gabapentin 800 Mg Tablet, 1,600 MG PO HS, (Reported) TAKES 2 (800MG) TABLETS Gabapentin 800 Mg Tablet, 800 MG PO DAILY, (Reported) Glucagon,Human Recombinant 1 Mg/Kit Soln, 1 MG INJ UD PRN for HYPERGLYCEMIA, (Reported) Glycerin/Propylene Glycol 1 Each Droperette, 2 DROPS OU PRN PRN for DRY EYES, (Reported) Insulin Aspart 300 Units/3 Ml Solution, UNITS SC TIDAC, (Reported) USES PER SLIDING SCALE Insulin Aspart 300 Units/3 Ml Solution, 50 UNITS SQ UD SLIDING SCALE INSULIN WITH MEALS- MAX TOTAL DAILY DOSE OF 50 UNITS USE 340B SAVINGS PLAN Prescribed by: JUAN DAVID BRADSHAW on 09/05/20 1423 Insulin Detemir 100 Unit/1 Ml Insuln.pen, 15 UNIT SQ BID, (Reported) Insulin Detemir 100 Unit/1 Ml Insuln.pen, 40 UNIT SQ HS USE 340B SAVINGS PLAN Prescribed by: JUAN DAVID BRADSHAW on 09/05/20 1423 Melatonin 5 Mg Tablet, 5 MG PO HS, (Reported) Omeprazole 20 Mg Capsule.dr, 20 MG PO DAILY, (Reported) Promethazine HCl 25 Mg Tablet, 25 MG PO Q6H PRN for NAUSEA/VOMITING Prescribed by: RIKKI PANCHAL on 08/18/20 1614 Patient Home Medication List Home Medication List Reviewed: Yes Review of Systems Review of Systems Constitutional: see HPI EENTM: see HPI, nose congestion Respiratory: no symptoms reported Cardiovascular: no symptoms reported Genitourinary: no symptoms reported Musculoskeletal: no symptoms reported Skin: no symptoms reported Psychiatric/Neurological: No Symptoms Reported Hematologic/Lymphatic: No Symptoms Reported Immunological/Allergic: no symptoms reported Past Pmynfwe-Miqyjv-Skscyc Hx Patient Social History Alcohol Beverage of Choice: Wine Drug of Choice: NARCOTIC ABUSE Type Used: Cigarettes Former Smoker, Quit: Nov 10, 2017 2nd Hand Smoke Exposure: No Recent Foreign Travel: No Contact w/Someone Who Travel: No Recent Hopitalizations: Yes Immunizations Up To Date Tetanus Booster (TDap): Unknown PED Vaccines UTD: No Date of Pneumonia Vaccine: Nov 06, 2019 Date of Influenza Vaccine: Nov 22, 2019 Seasonal Allergies Seasonal Allergies: Yes Past Medical History Surgeries: Yes (LITHOTRIPSY;LUMBAR SURGERY X 4;BMT'S;EGD'S WITH ESOPHAGEAL DILATIONS;) Cardiac, Coronary Stent, Ear Surgery, Gallbladder, Orthopedic, Renal Respiratory: Yes Chronic Bronchitis, Sleep Apnea Currently Using CPAP: No Currently Using BIPAP: No Cardiac: Yes (DVT'S IN ARMS; CARDIAC STENT X 1; CAROTID DISEASE;LINQ DEVICE) Chronic Edema/Swelling, Coronary Artery Disease, Deep Vein Thrombosis, High Cholesterol, Hypertension, Palpitations Neurological: Yes (NEUROPATHY IN HANDS AND FEET) Headaches /Migraines, Neuropathy 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 Disorders: No 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 Disorders: Denies [employer] History: Menopausal Sexually Transmitted Disease: No HIV/AIDS: No Genitourinary: Yes Bladder Infection, Kidney Stones, Renal Failure Gastrointestinal: Yes (GASTRITIS;ESOPH STRICTURE/DILATION;GASTROPARESIS-CHRONIC N/V/ABD PAIN;DAVID) Gastroesophageal Reflux, Diverticulosis, Esophagitis, Irritable Bowel Musculoskeletal: Yes (CHRONIC GENERALIZED PAIN;CHRONIC BILAT SHOULDER PAIN;CHRONIC NECK PAIN ) Degenerate Disk Disease, Fibromyalgia, Chronic Back Pain Endocrine: Yes (NON-COMPLAINT;MULTIPLE EPISODES OF DKA-EASILY CONTROLLED ON INSULIN IN HOSP) Diabetes, Insulin dep HEENT: Yes (GLASSES; S/P BMT'S) Chronic Ear Infection Loss of Vision: Bilateral Hearing Impairment: Hard of Hearing Cancer: No Psychosocial: Yes Anxiety Integumentary: Yes Psoriasis Blood Disorders: No Adverse Reaction/Blood Tranf: No Family Medical History Cancer of mouth 19 FATHER ( of esophogeal cancer.) Cardiovascular disease 19 MOTHER G8 BROTHER Completed stroke 19 FATHER G8 BROTHER Diabetes mellitus G8 BROTHER FH: lung cancer 19 MOTHER Hypertension 19 FATHER Kidney disease 19 FATHER Myocardial infarction 19 MOTHER G8 BROTHER Respiratory disorder No Family History of: AIDS CAD Over 55 Years Old, CVA, Diabetes, GI Disease, Renal Disease PSH: -LINQ DEVICE PLACED 11/09/19 FOR REPORTED PALPITATIONS X 6 MONTHS, SINCE PERCOCET WAS DC'D -MULTIPLE CARDIAC CATHS--STENT X 1 TO LAD 07/13/15. LAST CATH 01/18/19--NO INTERVENTION -LUMBAR SPINE FUSION X 3--12/2002, 04/2007, AND 05/2007 -LUMBAR DISCECTOMY 10/2000--? LAMINECTOMY? -CERVICAL SPINE FUSION 11/2006 -CHOLECYSTECTOMY 1984 -BMT'S -LITHOTRIPSY AND RIGHT URETERAL STENT -EGD'S WITH ESOPHAGEAL DILATIONS -COLONOSCOPIES, LAST ONE 03/08/19 -PORT RIGHT CHEST -LEFT SHOULDER ROTATOR CUFF REPAIR 05/01/20--DR. PALACIOS -CONTINUOUS GLUCOSE MONITOR PRESENT 06/25/20--LLQ OF ABDOMEN Physical Exam Vital Signs Vital Signs - First Documented 10/07/20 15:55 Temp 36.3 Pulse 94 Resp 18 B/P (MAP) 199/71 (113) Pulse Ox 98 O2 Delivery Room Air Capillary Refill : Height, Weight, BMI Height: 5'1.00" Weight: 122lbs. 1.0oz. [id number]; 26.00 BMI Method:Estimated General Appearance: No Apparent Distress, WD/WN, Chronically ill Eyes: Bilateral Eye Normal Inspection, Bilateral Eye PERRL Neck: Full Range of Motion, Normal Inspection Respiratory: No Accessory Muscle Use, No Respiratory Distress Cardiovascular: Regular Rate, Rhythm, Normal Peripheral Pulses Gastrointestinal: Normal Bowel Sounds, Non Tender, Soft Extremity: Normal Capillary Refill, Normal Inspection Neurologic/Psychiatric: Alert, Oriented x3 Skin: Normal Color, Warm/Dry Procedures/Interventions Date of ETT Placement: Dec 30, 2019 Time of ETT Placement: 0750 Progress/Results/Core Measures Suspected Sepsis SIRS Temperature: Pulse: Respiratory Rate: Laboratory Tests 10/07/20 16:45: White Blood Count 9.3 Blood Pressure / Mean: Laboratory Tests 10/07/20 16:45: Creatinine 1.36H, Platelet Count 225, Total Bilirubin 0.5 Results/Orders Lab Results Laboratory Tests Test 10/07/20 15:57 10/07/20 16:45 10/07/20 18:29 10/07/20 19:22 Range/Units Urine Color YELLOW Urine Clarity CLEAR Urine pH 6.0 5-9 Urine Specific [place] 1.015 L 1.016-1.022 Urine Protein 2+ H NEGATIVE Urine Glucose (UA) 3+ H NEGATIVE Urine Ketones TRACE H NEGATIVE Urine Nitrite NEGATIVE NEGATIVE Urine Bilirubin NEGATIVE NEGATIVE Urine Urobilinogen 0.2 < = 1.0 MG/DL Urine Leukocyte Esterase NEGATIVE NEGATIVE Urine RBC (Auto) TRACE-L NEGATIVE Urine RBC NONE /HPF Urine WBC 0-2 /HPF Urine Squamous Epithelial Cells RARE /HPF Urine Crystals NONE /LPF Urine Bacteria TRACE /HPF Urine Casts NONE /LPF Urine Mucus NEGATIVE /LPF Urine Culture Indicated NO White Blood Count 9.3 4.3-11.0 10^3/uL Red Blood Count 3.65 L 3.80-5.11 10^6/uL Hemoglobin 11.1 L 11.5-16.0 g/dL Hematocrit 34 L 35-52 % Mean Corpuscular Volume 93 80-99 fL Mean Corpuscular Hemoglobin 30 25-34 pg Mean Corpuscular Hemoglobin Concent 33 32-36 g/dL Red Cell Distribution Width 13.4 10.0-14.5 % Platelet Count 225 130-400 10^3/uL Mean Platelet Volume 11.0 9.0-12.2 fL Immature Granulocyte % (Auto) 0 % Neutrophils (%) (Auto) 73 42-75 % Lymphocytes (%) (Auto) 21 12-44 % Monocytes (%) (Auto) 3 0-12 % Eosinophils (%) (Auto) 3 0-10 % Basophils (%) (Auto) 1 0-10 % Neutrophils # (Auto) 6.7 1.8-7.8 10^3/uL Lymphocytes # (Auto) 1.9 1.0-4.0 10^3/uL Monocytes # (Auto) 0.2 0.0-1.0 10^3/uL Eosinophils # (Auto) 0.3 0.0-0.3 10^3/uL Basophils # (Auto) 0.1 0.0-0.1 10^3/uL Immature Granulocyte # (Auto) 0.0 0.0-0.1 10^3/uL Sodium Level 129 L 135-145 MMOL/L Potassium Level 5.0 3.6-5.0 MMOL/L Chloride Level 100 98-107 MMOL/L Carbon Dioxide Level 17 L 21-32 MMOL/L Anion Gap 12 5-14 MMOL/L Blood Urea Nitrogen 25 H 7-18 MG/DL Creatinine 1.36 H 0.60-1.30 MG/DL Estimat Glomerular Filtration Rate 40 BUN/Creatinine Ratio 18 Glucose Level 723 *H 70-105 MG/DL Calcium Level 8.3 L 8.5-10.1 MG/DL Corrected Calcium 8.7 8.5-10.1 MG/DL Total Bilirubin 0.5 0.1-1.0 MG/DL Aspartate Amino Transf (AST/SGOT) 9 5-34 U/L Alanine Aminotransferase (ALT/SGPT) 10 0-55 U/L Alkaline Phosphatase 99 40-136 U/L Total Protein 6.4 6.4-8.2 GM/DL Albumin 3.5 3.2-4.5 GM/DL Beta-Hydroxybutyrate (Chem panel) 1.42 H 0.00-0.27 MMOL/L Glucometer 371 H 70-110 MG/DL My Orders Orders - JR MARIE [employer] PARALEGAL Cbc With Automated Diff (10/07/20 15:52) Comprehensive Metabolic Panel (10/07/20 15:52) Beta Hydroxybutyrate (10/07/20 15:52) Ua Culture If Indicated (10/07/20 15:52) Ed Iv/Invasive Line Start (10/07/20 15:52) Accucheck Stat ONCE (10/07/20 15:52) Ns Iv 1000 Ml (Sodium Chloride 0.9%) (10/07/20 16:30) Insulin (Regular) Human (Novolin R (Per (10/07/20 16:30) Diphenhydramine Injection (Benadryl Inje (10/07/20 16:45) Promethazine Injection (Phenergan Injec (10/07/20 17:00) Ceftriaxone For Iv Use (Rocephin For I (10/07/20 18:15) Ns Iv 1000 Ml (Sodium Chloride 0.9%) (10/07/20 18:15) Accucheck Stat ONCE (10/07/20 18:04) Medications Given in ED Current Medications Medications Dose Ordered Sig/Jackie Route Start Time Stop Time Status Last Admin Dose Admin Ceftriaxone Sodium 1000 mg/ Sterile Water 10 ml @ 200 mls/hr ONCE ONCE IV 10/07/20 18:15 10/07/20 18:17 DC 10/07/20 18:31 200 MLS/HR Diphenhydramine HCl 25 mg ONCE ONCE IVP 10/07/20 16:45 10/07/20 16:46 DC 10/07/20 16:51 25 MG Insulin Human Regular 15 unit ONCE ONCE IV 10/07/20 16:30 10/07/20 16:31 DC 10/07/20 16:52 15 UNIT Promethazine HCl 25 mg ONCE ONCE IVP 10/07/20 17:00 10/07/20 17:01 DC 10/07/20 17:57 25 MG Vital Signs/I&O 10/07/20 15:55 Temp 36.3 Pulse 94 Resp 18 B/P (MAP) 199/71 (113) Pulse Ox 98 O2 Delivery Room Air Capillary Refill : Departure Communication (Admissions) 1704-patient came quite upset when I had the Benadryl put in Her bag of IV fluids. She would prefer it to be pushed quickly. 1924-BS down to 320s. Will dc to home. has not had any vomiting at any time during her ER stay. Impression Primary Impression: Hyperglycemia Additional Impression: Sinus congestion Disposition: 01 HOME, SELF-CARE Condition: Stable Departure-Patient Inst. Decision time for Depature: 18:31 Referrals: CINDY CALABRESE DO (PCP/Family) Primary Care Physician Patient Instructions: Hyperglycemia, Adult Add. Discharge Instructions: 1. REturn to Er for any concerns 2. Antibiotics as directed 3. Follow up with your doctor this week Scripts Amoxicillin (Amoxicillin) 500 Mg Capsule 1000 MG PO BID, #28 CAP 0 Refills Prov: JR MARIE APRN 10/07/20 JR MARIE APRN Oct 07, 2020 16:07
[2020-10-07 16:14] LABS: BILIRUBIN,URINE NEGATIVE (NEGATIVE); CLARITY,URINE CLEAR; COLOR,URINE YELLOW; GLUCOSE, URINE (UA) 3+ (NEGATIVE); KETONES,URINE TRACE (NEGATIVE); LEUKOCYTE ESTERASE ,URINE NEGATIVE (NEGATIVE); NITRITE,URINE NEGATIVE (NEGATIVE); PROTEIN,URINE 2+ (NEGATIVE)
[2020-10-07 16:27] LABS: BACTERIA,URINE TRACE /HPF; SQUAMOUS EPITHELIAL CELL,UR RARE /HPF; WBC,URINE 0-2 /HPF
[2020-10-07] MEDS ORDERED: NS IV 1000 ML 1,000 ML IV SCH ×2 (16:30→18:15)
[2020-10-07] MEDS ORDERED: inSUlin (REGULAR) HUMAN 1 UNIT/0.01 ML (CHARGE PER UNIT) IV ONE (16:30)
--- NOTE | 2020-10-07 16:39 | NUR ---
Pt states, "tell Neville I could sure use the phenergan and benadryl. But the benadryl has to go first, or not at all." Pt has not c/o nausea or vomiting thus far throughout stay. Provider notified.
[2020-10-07] MEDS ORDERED: diphenhydrAMINE 50 MG/ML INJ (BENADRYL) IVP ONE (16:45)
[2020-10-07 16:51] LABS: BASOPHILS # (AUTO) 0.1 10^3/uL (0.0-0.1); BASOPHILS % (AUTO) 1 % (0-10); EOSINOPHILS # (AUTO) 0.3 10^3/uL (0.0-0.3); EOSINOPHILS % (AUTO) 3 % (0-10); HEMATOCRIT 34 % (35-52); HEMOGLOBIN 11.1 g/dL (11.5-16.0); LYMPHOCYTES # (AUTO) 1.9 10^3/uL (1.0-4.0); LYMPHOCYTES % (AUTO) 21 % (12-44); MEAN CORPUSCULAR HEMOGLOBIN 30 pg (25-34); MEAN CORPUSCULAR HGB CONC 33 g/dL (32-36); MEAN CORPUSCULAR VOLUME 93 fL (80-99); MONOCYTES # (AUTO) 0.2 10^3/uL (0.0-1.0); MONOCYTES % (AUTO) 3 % (0-12); NEUTROPHILS # (AUTO) 6.7 10^3/uL (1.8-7.8); NEUTROPHILS % (AUTO) 73 % (42-75); PLATELET COUNT 225 10^3/uL (130-400); WHITE BLOOD COUNT 9.3 10^3/uL (4.3-11.0)
[2020-10-07 16:59] LABS: ALBUMIN 3.5 GM/DL (3.2-4.5)
[2020-10-07 17:00] LABS: CALCIUM 8.3 MG/DL (8.5-10.1)
[2020-10-07] MEDS ORDERED: PROMETHAZINE INJ 25 MG/ML (PHENERGAN) AMP IVP ONE (17:00)
[2020-10-07 17:02] LABS: TOTAL PROTEIN 6.4 GM/DL (6.4-8.2)
[2020-10-07 17:03] LABS: BILIRUBIN,TOTAL 0.5 MG/DL (0.1-1.0)
[2020-10-07 17:05] LABS: CREATININE SERUM 1.36 MG/DL (0.60-1.30)
[2020-10-07] MEDS ORDERED: cefTRIAXone FOR IV USE 1,000 MG in WATER (STERILE) FOR INJECTION 10 ML IV ONE (18:15)
[2020-10-07] MEDS ORDERED: AMOX500C2 PO (18:32)
[2020-10-07 19:47] VITALS: BP 156/66
== END 2020-10-07 19:47 | disposition home or self-care (01) ==
LOC: EDUNIT# 15:50 → ER 15:51
DX: E11.65 Type 2 diabetes mellitus with hyperglycemia (principal); R09.81 Nasal congestion; K21.9 Gastro-esophageal reflux disease without esophagitis; E78.00 Pure hypercholesterolemia, unspecified; Z82.49 Family history of ischemic heart disease and other diseases of the circulatory system; Z83.3 Family history of diabetes mellitus; Z80.8 Family history of malignant neoplasm of other organs or systems; Z80.1 Family history of malignant neoplasm of trachea, bronchus and lung; Z95.5 Presence of coronary angioplasty implant and graft; Z87.891 Personal history of nicotine dependence; Z88.1 Allergy status to other antibiotic agents; Z88.8 Allergy status to other drugs, medicaments and biological substances; Z91.040 Latex allergy status; Z86.718 Personal history of other venous thrombosis and embolism; Z79.4 Long term (current) use of insulin; Z79.82 Long term (current) use of aspirin; Z79.01 Long term (current) use of anticoagulants
CPT/HCPCS: 36415; 80053; 81000; 82010; 82962; 85025

== ENCOUNTER 2020-10-23 11:21 | Outpatient (RCR) | payer MEDICARE ==
[~2020-10-23] VITALS: Ht 150 cm; Wt 61.2 kg
[~2020-10-23 11:21] MED LIST changes: -ISOS30TA3 PO; +ISOS30TA82 PO; -LISI-552 PO; -LISI10TA2 PO; +LISI10TA25 PO; +LISI20TA26 PO; -OXYC-471 PO; +OXYC1TAB11 PO
[2020-10-23] MEDS ORDERED: HEParin (CENTRAL IV FLUSH) 500 UNIT/5 ML SYR ONE (11:30)
[2020-10-23 11:35] VITALS: BP 120/54
[2020-10-23] MEDS ORDERED: HEParin (CENTRAL IV FLUSH) 500 UNIT/5 ML SYR IV ONE (11:45)
[2020-11-13] MEDS ORDERED: OXYC10TA7 PO (12:38)
[2020-11-13] MEDS ORDERED: PREDNISOLONE OU (12:38)
[2020-11-13] MEDS ORDERED: BROM5DRO3 OU (12:38)
[2020-11-13] MEDS ORDERED: OFLO5DRO3 OD (12:38)
[2020-11-13] MEDS ORDERED: MTP25TSR PO (12:38)
[2020-11-13] MEDS ORDERED: INSU100I14 SC (13:04)
[2020-11-13] MEDS ORDERED: INSU100I29 SQ (13:04)
[2021-01-13] MEDS ORDERED: PROM25TA14 PO (20:47)
[2021-01-14] MEDS ORDERED: PROM25SU44 RC (18:15)
[2021-01-17] MEDS ORDERED: INSU100I14 SQ (12:00)
[2021-01-17] MEDS ORDERED: INSU100I29 SQ (12:00)
[2021-01-20] MEDS ORDERED: PANT40TA52 PO (12:47)
== END 2021-01-21 | disposition home or self-care (01) ==
LOC: SDC 11:21 → EDSTATUS 13:21
PROVIDERS: ATTEND Nurse Practitioner
DX: Z45.2 Encounter for adjustment and management of vascular access device (principal); Z20.828 Contact with and (suspected) exposure to other viral communicable diseases; Z79.899 Other long term (current) drug therapy
CPT/HCPCS: 96523

== ENCOUNTER 2020-10-24 07:58 | Outpatient (CLI) | payer MEDICARE ==
[~2020-10-24] VITALS: Ht 160 cm
[~2020-10-24 07:58] MED LIST changes: +ISOS30TA3 PO; -ISOS30TA82 PO; +LISI-552 PO; +LISI10TA2 PO; -LISI10TA25 PO; -LISI20TA26 PO; +OXYC-471 PO; -OXYC1TAB11 PO
[2020-10-24 08:35] VITALS: BP 121/67
[2020-10-24 08:39] LABS: BASOPHILS # (AUTO) 0.1 10^3/uL (0.0-0.1); BASOPHILS % (AUTO) 1 % (0-10); EOSINOPHILS # (AUTO) 0.9 10^3/uL (0.0-0.3); EOSINOPHILS % (AUTO) 6 % (0-10); HEMATOCRIT 30 % (35-52); HEMOGLOBIN 9.9 g/dL (11.5-16.0); LYMPHOCYTES # (AUTO) 4.8 10^3/uL (1.0-4.0); LYMPHOCYTES % (AUTO) 35 % (12-44); MEAN CORPUSCULAR HEMOGLOBIN 30 pg (25-34); MEAN CORPUSCULAR HGB CONC 33 g/dL (32-36); MEAN CORPUSCULAR VOLUME 91 fL (80-99); MEAN PLATELET VOLUME 10.4 fL (9.0-12.2); MONOCYTES # (AUTO) 0.6 10^3/uL (0.0-1.0); MONOCYTES % (AUTO) 4 % (0-12); NEUTROPHILS # (AUTO) 7.1 10^3/uL (1.8-7.8); NEUTROPHILS % (AUTO) 53 % (42-75); PLATELET COUNT 254 10^3/uL (130-400); WHITE BLOOD COUNT 13.5 10^3/uL (4.3-11.0)
[2020-10-24 08:51] LABS: ALBUMIN 3.2 GM/DL (3.2-4.5); POTASSIUM 4.7 MMOL/L (3.6-5.0)
[2020-10-24 08:52] LABS: CALCIUM 7.8 MG/DL (8.5-10.1)
[2020-10-24 08:54] LABS: TOTAL PROTEIN 5.9 GM/DL (6.4-8.2)
[2020-10-24 08:55] LABS: BILIRUBIN,TOTAL 0.1 MG/DL (0.1-1.0)
[2020-10-24 08:57] LABS: CREATININE SERUM 1.79 MG/DL (0.60-1.30)
== END 2020-10-24 08:30 | disposition home or self-care (01) ==
LOC: SDC 07:58
PROVIDERS: ATTEND Internal Medicine Endocrinology, Diabetes & Metabolism
DX: E11.65 Type 2 diabetes mellitus with hyperglycemia (principal)
CPT/HCPCS: 36415; 36591; 80053; 80061; 84443; 84681; 85025

== ENCOUNTER 2020-10-30 05:34 | Outpatient (RCR) | payer MEDICARE ==
[~2020-10-30] VITALS: Ht 150 cm; Wt 63.6 kg
== END 2020-10-30 11:32 | disposition home or self-care (01) ==
LOC: PREOP 05:34
PROVIDERS: ATTEND Specialist
DX: Z01.818 Encounter for other preprocedural examination (principal); H25.12 Age-related nuclear cataract, left eye; Z20.828 Contact with and (suspected) exposure to other viral communicable diseases
CPT/HCPCS: 87635

== ENCOUNTER 2020-11-01 06:01 | Day surgery (SDC) | payer MEDICARE ==
[~2020-11-01] VITALS: Ht 150 cm; Wt 63.6 kg
[2020-11-01] MEDS ORDERED: LIDOCAINE PF 1% 2 ML VIAL IR PRN (06:15)
[2020-11-01] MEDS ORDERED: POVIDONE (BETADINE) OPHTH SOLN 5% 30 ML OP ONE (06:15)
[2020-11-01] MEDS ORDERED: MOXIFLOXACIN OPHTH SOLN 5 MG/ML 0.3 ML SYRINGE OP ONE (06:15)
[2020-11-01] MEDS ORDERED: TIMOLOL MALEATE 0.5% 5 ML (TIMOPTIC) BTL OU PRN (06:15)
[2020-11-01 06:17] VITALS: BP 160/70
[2020-11-01] MEDS: TETRACAINE 0.5% OPHTH SOLN 4 ML BTL (SINGLE DOSE ONLY) OU PRN ×4 (06:19→06:44)
[2020-11-01] MEDS: PHENYLEPHRINE 10% OPHTH (NEO-SYN) 5 ML BTL OU SCH ×3 (06:32→06:44)
[2020-11-01] MEDS: TROPICAMIDE 1% OPH SOLN (MYDRIACYL) 15 ML BTL OP SCH ×3 (06:32→06:44)
[2020-11-01] MEDS ORDERED: MIDAZOLAM 2 MG/2 ML (VERSED) VIAL ONE (07:08)
--- NOTE | 2020-11-01 07:27 | Ophthalmologist Pre-Op Note ---
Pre-Operative Progress Note H&P Reviewed The H&P was reviewed, patient examined and no changes noted. Date H&P Reviewed: Nov 01, 2020 Time H&P Reviewed: 07:27 Pre-Op Dx Cataract, Left Eye DERIK FOX MD Nov 01, 2020 07:27
[2020-11-01] MEDS ORDERED: acetaZOLAMIDE ER 500 MG CAP (DIAMOX SEQUELS) PO ONE (07:30)
--- NOTE | 2020-11-01 07:48 | Ophthalmologist Pre-Op Note ---
Pre-Operative Progress Note H&P Reviewed The H&P was reviewed, patient examined and no changes noted. Date H&P Reviewed: Nov 01, 2020 Time H&P Reviewed: 07:48 Pre-Op Dx Cataract, Left Eye DERIK FOX MD Nov 01, 2020 07:48
--- NOTE | 2020-11-01 07:48 | Ophthalmology Operative Report ---
Cataract removal/placement IOL PREOPERATIVE DIAGNOSIS: Cataract Left Eye POSTOPERATIVE DIAGNOSIS: Cataract Left Eye PROCEDURE: Cataract removal and placement of posterior chamber implant, left eye SURGEON: Lizandro Fox ANESTHESIA: Topical with sedation COMPLICATIONS: None ESTIMATED BLOOD LOSS: Minimal DESCRIPTION OF PROCEDURE: After proper informed consent was obtained, the patient, a 60 female, was taken to the Operating Room and the left eye was anesthetized with tetracaine. The left eye was then prepped and draped in the usual manner. A wire lid speculum was placed. A paracentesis was made at the left hand position. Preservative free lidocaine was injected into the anterior chamber followed by viscoelastic. A clear corneal incision was made in the temporal position. A capsulorrhexis was preformed and the central nuclear and cortical material were removed. The posterior capsule was polished and an Lee 18.5 AU00T0 was placed into the capsular bag. The residual viscoelastic was aspirated and balanced saline solution was injected into the anterior chamber. Moxifloxacin was injected into the anterior chamber. The wound was checked and found to be water tight. The patient tolerated the procedure well without complications. LIZANDRO FOX MD Nov 01, 2020 07:48
[2020-11-01 08:05] VITALS: BP 165/75
--- NOTE | 2020-11-01 11:26 | Anesthesia-General Post-Op ---
MAC Patient Condition Mental Status/LOC: Same as Preop Cardiovascular: Satisfactory Nausea/Vomiting: Absent Respiratory: Satisfactory Pain: Controlled Complications: Absent Post Op Complications Complications None Follow Up Care/Instructions Patient Instructions None needed. Anesthesiology Discharge Order Discharge Order Patient is doing well, no complaints, stable vital signs, no apparent adverse anesthesia problems. No complications reported per nursing. PEARL GUTIERREZ CRNA Nov 01, 2020 11:26
== END 2020-11-01 08:05 | disposition home or self-care (01) ==
LOC: SDC 06:01
PROVIDERS: ATTEND Specialist
DX: H25.12 Age-related nuclear cataract, left eye (principal); E11.36 Type 2 diabetes mellitus with diabetic cataract; I10 Essential (primary) hypertension; G47.33 Obstructive sleep apnea (adult) (pediatric); M06.9 Rheumatoid arthritis, unspecified; E78.00 Pure hypercholesterolemia, unspecified; F17.210 Nicotine dependence, cigarettes, uncomplicated; Z79.01 Long term (current) use of anticoagulants; Z79.899 Other long term (current) drug therapy; Z88.1 Allergy status to other antibiotic agents; Z91.040 Latex allergy status; Z88.8 Allergy status to other drugs, medicaments and biological substances; Z88.5 Allergy status to narcotic agent; Z86.73 Personal history of transient ischemic attack (TIA), and cerebral infarction without residual deficits; Z80.0 Family history of malignant neoplasm of digestive organs; Z80.1 Family history of malignant neoplasm of trachea, bronchus and lung
CPT/HCPCS: 66984; 82962; V2632

== ENCOUNTER 2020-11-06 05:41 | Outpatient (RCR) | payer MEDICARE ==
[~2020-11-06] VITALS: Ht 150 cm; Wt 63.6 kg
== END 2020-11-06 13:07 | disposition home or self-care (01) ==
LOC: PREOP 05:41
PROVIDERS: ATTEND Specialist
DX: Z01.812 Encounter for preprocedural laboratory examination (principal); Z20.828 Contact with and (suspected) exposure to other viral communicable diseases
CPT/HCPCS: 87635

== ENCOUNTER 2020-11-06 17:03 | Emergency (ER) | payer MEDICARE ==
[~2020-11-06] VITALS: Ht 152.4 cm; Wt 63.5 kg
--- NOTE | 2020-11-06 17:06 | NUR ---
CALLED BACK AND NOTIFIED DR. LOZADA ABOUT PT SYMPTOM OF HEART PALPITATIONS.
--- NOTE | 2020-11-06 17:52 | ED Cardiac General ---
History of Present Illness General Chief Complaint: Cardiac/General Problems Stated Complaint: HEART PALPITATIONS/WEAKNESS Source: patient Exam Limitations: no limitations History of Present Illness Date Seen by Provider: Nov 06, 2020 Time Seen by Provider: 17:10 Initial Comments This is a well-appearing 60-year-old female who presents to the ER with complaints of heart palpitations, weakness x 2 days. Reports N/V/D, but is no worse than her usual chronic c/o N/V/D. States she recently receive a loop recorder d/t palpitation and was placed on Metoprolol BID by Dr. Cobb last week work intermittent episodes of palpitations and fast heart rate. States her palpations are worse than usual and started around yesterday morning. Denies fever, chills, headache, chest pain, shortness of breath, abdominal pain. Allergies and Home Medications Allergies Coded Allergies: ketorolac (Verified Allergy, Severe, ANAPHYLAXIS, PT TAKES ASA AT HOME, 03/06/19) ondansetron (Verified Allergy, Intermediate, RASH, 03/06/19) RASH/ HIVES scopolamine (Verified Allergy, Mild, Rash, 03/21/19) exenatide (Verified Allergy, Unknown, NAUSEA, 03/06/19) NON STOP VOMITING latex (Verified Allergy, Unknown, RASH, 03/06/19) metoclopramide (Verified Allergy, Unknown, RESTLESS LEGS, 03/06/19) erythromycin base (Verified Adverse Reaction, Unknown, 03/21/19) Home Medications Acetaminophen 325 Mg Capsule, 650 MG PO Q6H PRN for PAIN-MILD (1-4) OR TEMPATURE, (Reported) Apixaban 5 Mg Tablet, 5 MG PO BID, (Reported) Aspirin 81 Mg Tablet.dr, 81 MG PO DAILY, (Reported) Atorvastatin Calcium 20 Mg Tablet, 20 MG PO HS, (Reported) Diphenhydramine HCl 25 Mg Tablet, 25-50 MG PO Q6H PRN for ALLERGY SYMPTOMS, (Reported) Gabapentin 800 Mg Tablet, 1,600 MG PO HS, (Reported) TAKES 2 (800MG) TABLETS Gabapentin 800 Mg Tablet, 800 MG PO DAILY, (Reported) Glucagon,Human Recombinant 1 Mg/Kit Soln, 1 MG INJ UD PRN for HYPERGLYCEMIA, (Reported) Glycerin/Propylene Glycol 1 Each Droperette, 2 DROPS OU PRN PRN for DRY EYES, (Reported) Insulin Aspart 300 Units/3 Ml Solution, UNITS SC TIDAC, (Reported) USES PER SLIDING SCALE Insulin Detemir 100 Unit/1 Ml Insuln.pen, 15 UNIT SQ BID, (Reported) Melatonin 5 Mg Tablet, 5 MG PO HS, (Reported) Omeprazole 20 Mg Capsule.dr, 20 MG PO DAILY, (Reported) Patient Home Medication List Home Medication List Reviewed: Yes Review of Systems Review of Systems Constitutional: see HPI EENTM: See HPI Respiratory: No Symptoms Reported Cardiovascular: See HPI Gastrointestinal: See HPI Genitourinary: No Symptoms Reported Musculoskeletal: no symptoms reported Skin: no symptoms reported Psychiatric/Neurological: No Symptoms Reported Endocrine: No Symptoms Reported Hematologic/Lymphatic: No Symptoms Reported Past Pxmdfga-Acyxil-Moxdql Hx Patient Social History Alcohol Beverage of Choice: Wine Drug of Choice: NARCOTIC ABUSE Type Used: Cigarettes Former Smoker, Quit: Nov 10, 2017 2nd Hand Smoke Exposure: No Recent Foreign Travel: No Contact w/Someone Who Travel: No Recent Hopitalizations: Yes Immunizations Up To Date Tetanus Booster (TDap): Unknown PED Vaccines UTD: No Date of Pneumonia Vaccine: Nov 06, 2019 Date of Influenza Vaccine: Nov 22, 2019 Seasonal Allergies Seasonal Allergies: Yes Past Medical History Surgeries: Yes (LITHOTRIPSY;LUMBAR SURGERY X 4;BMT'S;EGD'S WITH ESOPHAGEAL DILATIONS;) Cardiac, Coronary Stent, Ear Surgery, Gallbladder, Orthopedic, Renal Respiratory: Yes Chronic Bronchitis, Sleep Apnea Currently Using CPAP: No Currently Using BIPAP: No Cardiac: Yes (DVT'S IN ARMS; CARDIAC STENT X 1; CAROTID DISEASE;LINQ DEVICE) Chronic Edema/Swelling, Coronary Artery Disease, Deep Vein Thrombosis, High Cholesterol, Hypertension, Palpitations Neurological: Yes (NEUROPATHY IN HANDS AND FEET) Headaches /Migraines, Neuropathy 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 Disorders: No 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 Disorders: Denies 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 Sexually Transmitted Disease: No HIV/AIDS: No Genitourinary: Yes Bladder Infection, Kidney Stones, Renal Failure Gastrointestinal: Yes (GASTRITIS;ESOPH STRICTURE/DILATION;GASTROPARESIS-CHRONIC N/V/ABD PAIN;DAVID) Gastroesophageal Reflux, Diverticulosis, Esophagitis, Irritable Bowel Musculoskeletal: Yes (CHRONIC GENERALIZED PAIN;CHRONIC BILAT SHOULDER PAIN;CHRONIC NECK PAIN ) Degenerate Disk Disease, Fibromyalgia, Chronic Back Pain Endocrine: Yes (NON-COMPLAINT;MULTIPLE EPISODES OF DKA-EASILY CONTROLLED ON INSULIN IN HOSP) Diabetes, Insulin dep HEENT: Yes (GLASSES; S/P BMT'S) Chronic Ear Infection Loss of Vision: Bilateral Hearing Impairment: Hard of Hearing Cancer: No Psychosocial: Yes Anxiety Integumentary: Yes Psoriasis Blood Disorders: No Adverse Reaction/Blood Tranf: No Family Medical History Cancer of mouth 19 FATHER ( of esophogeal cancer.) Cardiovascular disease 19 MOTHER G8 BROTHER Completed stroke 19 FATHER G8 BROTHER Diabetes mellitus G8 BROTHER FH: lung cancer 19 MOTHER Hypertension 19 FATHER Kidney disease 19 FATHER Myocardial infarction 19 MOTHER G8 BROTHER Respiratory disorder No Family History of: AIDS CAD Over 55 Years Old, CVA, Diabetes, GI Disease, Renal Disease PSH: -LINQ DEVICE PLACED 11/09/19 FOR REPORTED PALPITATIONS X 6 MONTHS, SINCE PERCOCET WAS DC'D -MULTIPLE CARDIAC CATHS--STENT X 1 TO LAD 07/13/15. LAST CATH 01/18/19--NO INTERVENTION -LUMBAR SPINE FUSION X 3--12/2002, 04/2007, AND 05/2007 -LUMBAR DISCECTOMY 10/2000--? LAMINECTOMY? -CERVICAL SPINE FUSION 11/2006 -CHOLECYSTECTOMY 1983 -BMT'S -LITHOTRIPSY AND RIGHT URETERAL STENT -EGD'S WITH ESOPHAGEAL DILATIONS -COLONOSCOPIES, LAST ONE 03/08/19 -PORT RIGHT CHEST -LEFT SHOULDER ROTATOR CUFF REPAIR 05/01/20--DR. PALACIOS -CONTINUOUS GLUCOSE MONITOR PRESENT 06/25/20--LLQ OF ABDOMEN Physical Exam Vital Signs Vital Signs - First Documented 11/06/20 17:14 Temp 36.9 Pulse 76 Resp 18 B/P (MAP) 140/83 (102) Pulse Ox 98 O2 Delivery Room Air Capillary Refill : Height, Weight, BMI Height: 5'1.00" Weight: 122lbs. 1.0oz. 55.534940cv; 27.00 BMI Method:Estimated General Appearance: No Apparent Distress, WD/WN HEENT: PERRL/EOMI, Normal ENT Inspection, Pharynx Normal, Moist Mucous Membranes Neck: Full Range of Motion, Normal Inspection Respiratory: Chest Non Tender, Lungs Clear, Normal Breath Sounds, No Accessory Muscle Use, No Respiratory Distress Cardiovascular: Regular Rate, Rhythm, No Murmur, Normal Peripheral Pulses, Tachycardia Gastrointestinal: Normal Bowel Sounds, Non Tender, Soft; No Distended, No Guarding Neurologic/Psychiatric: Alert, Oriented x3, No Motor/Sensory Deficits, Normal Mood/Affect Skin: Normal Color, Warm/Dry Procedures/Interventions Date of ETT Placement: Dec 30, 2019 Time of ETT Placement: 0750 Progress/Results/Core Measures Results/Orders Lab Results Laboratory Tests Test 11/06/20 17:50 11/06/20 18:13 Range/Units Sodium Level 131 L 135-145 MMOL/L Potassium Level 4.4 3.6-5.0 MMOL/L Chloride Level 110 H 98-107 MMOL/L Carbon Dioxide Level 12 L 21-32 MMOL/L Anion Gap 9 5-14 MMOL/L Blood Urea Nitrogen 25 H 7-18 MG/DL Creatinine 1.36 H 0.60-1.30 MG/DL Estimat Glomerular Filtration Rate 40 BUN/Creatinine Ratio 18 Glucose Level 493 *H 70-105 MG/DL Calcium Level 7.6 L 8.5-10.1 MG/DL Corrected Calcium 8.2 L 8.5-10.1 MG/DL Magnesium Level 1.6 1.6-2.4 MG/DL Total Bilirubin 0.2 0.1-1.0 MG/DL Aspartate Amino Transf (AST/SGOT) 12 5-34 U/L Alanine Aminotransferase (ALT/SGPT) 11 0-55 U/L Alkaline Phosphatase 104 40-136 U/L Myoglobin 42.1 10.0-92.0 NG/ML Troponin I < 0.028 <0.028 NG/ML Total Protein 6.2 L 6.4-8.2 GM/DL Albumin 3.3 3.2-4.5 GM/DL White Blood Count 11.4 H 4.3-11.0 10^3/uL Red Blood Count 3.90 3.80-5.11 10^6/uL Hemoglobin 11.6 11.5-16.0 g/dL Hematocrit 37 35-52 % Mean Corpuscular Volume 94 80-99 fL Mean Corpuscular Hemoglobin 30 25-34 pg Mean Corpuscular Hemoglobin Concent 32 32-36 g/dL Red Cell Distribution Width 13.2 10.0-14.5 % Platelet Count 267 130-400 10^3/uL Mean Platelet Volume 10.5 9.0-12.2 fL Immature Granulocyte % (Auto) 0 % Neutrophils (%) (Auto) 66 42-75 % Lymphocytes (%) (Auto) 24 12-44 % Monocytes (%) (Auto) 4 0-12 % Eosinophils (%) (Auto) 4 0-10 % Basophils (%) (Auto) 1 0-10 % Neutrophils # (Auto) 7.5 1.8-7.8 10^3/uL Lymphocytes # (Auto) 2.8 1.0-4.0 10^3/uL Monocytes # (Auto) 0.5 0.0-1.0 10^3/uL Eosinophils # (Auto) 0.5 H 0.0-0.3 10^3/uL Basophils # (Auto) 0.1 0.0-0.1 10^3/uL Immature Granulocyte # (Auto) 0.1 0.0-0.1 10^3/uL Prothrombin Time 12.8 12.2-14.7 SEC INR Comment 0.9 0.8-1.4 Activated Partial Thromboplast Time 25 24-35 SEC My Orders Orders - KETAN HAY APRN Diphenhydramine Injection (Benadryl Inje (11/06/20 18:00) Promethazine Injection (Phenergan Injec (11/06/20 18:00) Ns Iv 1000 Ml (Sodium Chloride 0.9%) (11/06/20 18:00) Iv Push Fireperson Ed (11/06/20 ) Medications Given in ED Vital Signs/I&O 11/06/20 11/06/20 17:14 19:45 Temp 36.9 36.6 Pulse 76 70 Resp 18 18 B/P (MAP) 140/83 (102) 139/89 Pulse Ox 98 95 O2 Delivery Room Air Room Air Progress Progress Note : Progress Note Upon arrival patient states she needs her Benadryl and Phenergan for n ausea/vomiting. Cardiac workup initiated. EKG shows NSR with paroxysmal tachycardia. Reports improved nausea/vomiting with fluids and antiemetics. Reviewed labs, renal function improved from 10/24/20 lab draw. 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 Requested home Oxycodone w/o Tylenol from RN, stating it was due at 7pm. Discussed finishing IVF and discharging home. Reviewed d/c plan and she is agreeable with plan. Initial ECG Impression Date: Nov 06, 2020 Initial ECG Impression Time: 17:22 Initial ECG Rate: 113 Initial ECG Rhythm: S.Tach (paroxysmal tachycardia) Diagnostic Imaging Diagonstic Imaging: Xray Plain Films/CT/US/NM/MRI: chest Comments NAME: VALENTE HARPER [facility] REC#: [id number] PT STATUS: REG ER : 1960 PHYSICIAN: WARD MUNGUIA MD ADMIT DATE: 11/06/20/ER Draft Date of Exam:11/06/20 CHEST 1 VIEW, AP/PA ONLY INDICATION: Chest pain EXAMINATION: Portable chest at 6:06 p.m. FINDINGS: There is a loop recorder projecting over the left lower chest. Right IJ Port-A-Cath tip projects over the SVC. Heart size and pulmonary vascularity are normal. Lungs are clear. There are no effusions or pneumothoraces. IMPRESSION: No acute abnormality in the chest. Dictated on workstation # [id number] Dict: 11/06/20 1809 Trans: 11/06/20 1815 [facility] [id number] Interpreted by: VALENTIN PORTER MD Electronically signed by: Departure Impression Primary Impression: Heart palpitations Disposition: 01 HOME, SELF-CARE Condition: Stable/Unchanged Departure-Patient Inst. Decision time for Depature: 19:35 Referrals: CINDY CALABRESE DO (PCP/Family) Primary Care Physician Patient Instructions: Palpitations Add. Discharge Instructions: Plan: 1. Discharge home. Drink plenty of fluids. Monitor your blood sugar and aim to keep below 250. 2. Continue to capture your palpitations on loop recorder as previously directed. 3. Call Dr. Cobb's office for follow-up appointment. 4. Keep appointment with your kidney doctor as previously scheduled. 5. Return for any new, concerning, or worsening symptoms. All discharge instructions reviewed with patient and/or family. Voiced understanding. KETAN HAY [employer] Nov 06, 2020 17:52
[2020-11-06] MEDS ORDERED: PROMETHAZINE INJ 25 MG/ML (PHENERGAN) AMP IVP ONE (18:00)
[2020-11-06] MEDS ORDERED: diphenhydrAMINE 50 MG/ML INJ (BENADRYL) IVP ONE (18:00)
[2020-11-06] MEDS ORDERED: NS IV 1000 ML 1,000 ML IV ONE (18:00)
[2020-11-06 18:13] LABS: ALBUMIN 3.3 GM/DL (3.2-4.5); POTASSIUM 4.4 MMOL/L (3.6-5.0)
[2020-11-06 18:14] LABS: CALCIUM 7.6 MG/DL (8.5-10.1)
--- NOTE | 2020-11-06 18:15 | Diagnostic Imaging Report ---
INDICATION: Chest pain EXAMINATION: Portable chest at 6:06 p.m. FINDINGS: There is a loop recorder projecting over the left lower chest. Right IJ Port-A-Cath tip projects over the SVC. Heart size and pulmonary vascularity are normal. Lungs are clear. There are no effusions or pneumothoraces. IMPRESSION: No acute abnormality in the chest. Dictated by: Dictated on workstation # [id number]
[2020-11-06 18:16] LABS: TOTAL PROTEIN 6.2 GM/DL (6.4-8.2)
[2020-11-06 18:17] LABS: BILIRUBIN,TOTAL 0.2 MG/DL (0.1-1.0)
[2020-11-06 18:18] LABS: BASOPHILS # (AUTO) 0.1 10^3/uL (0.0-0.1); BASOPHILS % (AUTO) 1 % (0-10); EOSINOPHILS # (AUTO) 0.5 10^3/uL (0.0-0.3); EOSINOPHILS % (AUTO) 4 % (0-10); HEMATOCRIT 37 % (35-52); HEMOGLOBIN 11.6 g/dL (11.5-16.0); LYMPHOCYTES # (AUTO) 2.8 10^3/uL (1.0-4.0); LYMPHOCYTES % (AUTO) 24 % (12-44); MEAN CORPUSCULAR HEMOGLOBIN 30 pg (25-34); MEAN CORPUSCULAR HGB CONC 32 g/dL (32-36); MEAN CORPUSCULAR VOLUME 94 fL (80-99); MEAN PLATELET VOLUME 10.5 fL (9.0-12.2); MONOCYTES # (AUTO) 0.5 10^3/uL (0.0-1.0); MONOCYTES % (AUTO) 4 % (0-12); NEUTROPHILS # (AUTO) 7.5 10^3/uL (1.8-7.8); NEUTROPHILS % (AUTO) 66 % (42-75); PLATELET COUNT 267 10^3/uL (130-400); WHITE BLOOD COUNT 11.4 10^3/uL (4.3-11.0)
[2020-11-06 18:19] LABS: CREATININE SERUM 1.36 MG/DL (0.60-1.30)
[2020-11-06 18:22] LABS: MAGNESIUM 1.6 MG/DL (1.6-2.4)
[2020-11-06 18:31] LABS: INR 0.9 (0.8-1.4); PROTHROMBIN TIME PATIENT 12.8 SEC (12.2-14.7)
[2020-11-06 19:45] VITALS: BP 139/89
== END 2020-11-06 19:46 | disposition home or self-care (01) ==
LOC: EDUNIT# 17:03 → ER 17:05
DX: R00.2 Palpitations (principal); K21.9 Gastro-esophageal reflux disease without esophagitis; E11.9 Type 2 diabetes mellitus without complications; E78.00 Pure hypercholesterolemia, unspecified; Z80.0 Family history of malignant neoplasm of digestive organs; Z82.49 Family history of ischemic heart disease and other diseases of the circulatory system; Z83.3 Family history of diabetes mellitus; Z80.1 Family history of malignant neoplasm of trachea, bronchus and lung; Z87.891 Personal history of nicotine dependence; Z91.040 Latex allergy status; Z88.1 Allergy status to other antibiotic agents; Z88.6 Allergy status to analgesic agent; Z88.8 Allergy status to other drugs, medicaments and biological substances; Z95.5 Presence of coronary angioplasty implant and graft; Z86.718 Personal history of other venous thrombosis and embolism; Z79.82 Long term (current) use of aspirin; Z79.01 Long term (current) use of anticoagulants; Z79.4 Long term (current) use of insulin
CPT/HCPCS: 36415; 71045; 80053; 83735; 83874; 84484; 85025; 85610; 85730; 93005; 93041; 96361; 96374; 96375

== ENCOUNTER 2020-11-08 06:00 | Day surgery (SDC) | payer MEDICARE ==
[~2020-11-08] VITALS: Ht 150 cm; Wt 63.6 kg
[2020-11-08 06:00] VITALS: BP 132/94
[2020-11-08] MEDS ORDERED: MOXIFLOXACIN OPHTH SOLN 5 MG/ML 0.3 ML SYRINGE OP ONE (06:15)
[2020-11-08] MEDS ORDERED: POVIDONE (BETADINE) OPHTH SOLN 5% 30 ML OP ONE (06:15)
[2020-11-08] MEDS ORDERED: LIDOCAINE PF 1% 2 ML VIAL IR PRN (06:15)
[2020-11-08] MEDS ORDERED: TIMOLOL MALEATE 0.5% 5 ML (TIMOPTIC) BTL OU PRN (06:15)
[2020-11-08] MEDS: TETRACAINE 0.5% OPHTH SOLN 4 ML BTL (SINGLE DOSE ONLY) OU PRN ×4 (06:17→06:39)
[2020-11-08] MEDS: PHENYLEPHRINE 10% OPHTH (NEO-SYN) 5 ML BTL OU SCH ×3 (06:26→06:39)
[2020-11-08] MEDS: TROPICAMIDE 1% OPH SOLN (MYDRIACYL) 15 ML BTL OP SCH ×3 (06:26→06:39)
--- NOTE | 2020-11-08 06:59 | Ophthalmologist Pre-Op Note ---
Pre-Operative Progress Note H&P Reviewed The H&P was reviewed, patient examined and no changes noted. Date H&P Reviewed: Nov 08, 2020 Time H&P Reviewed: 06:58 Pre-Op Dx Cataract, Right Eye DERIK FOX MD Nov 08, 2020 06:59
[2020-11-08] MEDS ORDERED: MIDAZOLAM 2 MG/2 ML (VERSED) VIAL ONE (07:06)
--- NOTE | 2020-11-08 07:29 | Ophthalmology Operative Report ---
Cataract removal/placement IOL PREOPERATIVE DIAGNOSIS: Cataract Right Eye POSTOPERATIVE DIAGNOSIS: Cataract Right Eye PROCEDURE: Cataract removal and placement of posterior chamber implant, right eye SURGEON: Lizandro Fox ANESTHESIA: Topical with sedation COMPLICATIONS: None ESTIMATED BLOOD LOSS: Minimal DESCRIPTION OF PROCEDURE: After proper informed consent was obtained, the patient, a 60 female, was taken to the Operating Room and the right eye was anesthetized with tetracaine. The right eye was then prepped and draped in the usual manner. A wire lid speculum was placed. A paracentesis was made at the left hand position. Preservative free lidocaine was injected into the anterior chamber followed by viscoelastic. A clear corneal incision was made in the temporal position. A capsulorrhexis was preformed and the central nuclear and cortical material were removed. The posterior capsule was polished and Lee 18.5 AU00T0 IOL was placed into the capsular bag. The residual viscoelastic was aspirated and balanced saline solution was injected into the anterior chamber. Moxifloxacin was injected into the anterior chamber. The wound was checked and found to be water tight. The patient tolerated the procedure well without complications. LIZANDRO FOX MD Nov 08, 2020 07:29
[2020-11-08] MEDS ORDERED: acetaZOLAMIDE ER 500 MG CAP (DIAMOX SEQUELS) PO ONE (07:30)
[2020-11-08 07:37] VITALS: BP 98/53
--- NOTE | 2020-11-08 10:14 | Anesthesia-General Post-Op ---
MAC Patient Condition Mental Status/LOC: Same as Preop Cardiovascular: Satisfactory Nausea/Vomiting: Absent Respiratory: Satisfactory Pain: Controlled Complications: Absent Post Op Complications Complications None Follow Up Care/Instructions Patient Instructions None needed. Anesthesiology Discharge Order Discharge Order Patient is doing well, no complaints, stable vital signs, no apparent adverse anesthesia problems. No complications reported per nursing. NASIR PRASAD CRNA Nov 08, 2020 10:14
== END 2020-11-08 07:37 | disposition home or self-care (01) ==
LOC: SDC 06:00
PROVIDERS: ATTEND Specialist
DX: H25.11 Age-related nuclear cataract, right eye (principal); E11.36 Type 2 diabetes mellitus with diabetic cataract; I10 Essential (primary) hypertension; G47.33 Obstructive sleep apnea (adult) (pediatric); M06.9 Rheumatoid arthritis, unspecified; E78.00 Pure hypercholesterolemia, unspecified; M19.90 Unspecified osteoarthritis, unspecified site; F17.210 Nicotine dependence, cigarettes, uncomplicated; Z79.899 Other long term (current) drug therapy; Z86.73 Personal history of transient ischemic attack (TIA), and cerebral infarction without residual deficits; Z88.1 Allergy status to other antibiotic agents; Z91.040 Latex allergy status; Z88.8 Allergy status to other drugs, medicaments and biological substances; Z80.0 Family history of malignant neoplasm of digestive organs; Z80.1 Family history of malignant neoplasm of trachea, bronchus and lung
CPT/HCPCS: 66984; V2632

== ENCOUNTER 2020-11-10 19:59 | Emergency (ER) | payer MEDICARE ==
[~2020-11-10] VITALS: Ht 152 cm; Wt 63.0 kg
[2020-11-10] MEDS ORDERED: diphenhydrAMINE 50 MG/ML INJ (BENADRYL) IVP ONE (20:45)
[2020-11-10] MEDS ORDERED: PROMETHAZINE INJ 25 MG/ML (PHENERGAN) AMP IVP ONE ×2 (20:45→22:15)
[2020-11-10 20:47] LABS: POTASSIUM 4.6 MMOL/L (3.6-5.0)
[2020-11-10 20:48] LABS: CALCIUM 8.8 MG/DL (8.5-10.1)
[2020-11-10 20:49] LABS: TOTAL PROTEIN 7.2 GM/DL (6.4-8.2)
[2020-11-10 20:51] LABS: BILIRUBIN,TOTAL 0.5 MG/DL (0.1-1.0)
[2020-11-10 20:53] LABS: CREATININE SERUM 1.68 MG/DL (0.60-1.30)
[2020-11-10 21:03] LABS: BILIRUBIN,URINE NEGATIVE (NEGATIVE); CLARITY,URINE CLEAR; COLOR,URINE YELLOW; GLUCOSE, URINE (UA) 3+ (NEGATIVE); KETONES,URINE TRACE (NEGATIVE); LEUKOCYTE ESTERASE ,URINE NEGATIVE (NEGATIVE); NITRITE,URINE NEGATIVE (NEGATIVE); PROTEIN,URINE 2+ (NEGATIVE)
[2020-11-10] MEDS: NS IV 1000 ML 1,000 ML IV SCH ×2 (21:04→22:27)
[2020-11-10 21:08] LABS: BASOPHILS # (AUTO) 0.1 10^3/uL (0.0-0.1); BASOPHILS % (AUTO) 1 % (0-10); EOSINOPHILS # (AUTO) 0.2 10^3/uL (0.0-0.3); EOSINOPHILS % (AUTO) 2 % (0-10); HEMATOCRIT 37 % (35-52); HEMOGLOBIN 12.4 g/dL (11.5-16.0); LYMPHOCYTES # (AUTO) 2.8 10^3/uL (1.0-4.0); LYMPHOCYTES % (AUTO) 26 % (12-44); MEAN CORPUSCULAR HEMOGLOBIN 30 pg (25-34); MEAN CORPUSCULAR HGB CONC 33 g/dL (32-36); MEAN CORPUSCULAR VOLUME 89 fL (80-99); MEAN PLATELET VOLUME 11.6 fL (9.0-12.2); MONOCYTES # (AUTO) 0.4 10^3/uL (0.0-1.0); MONOCYTES % (AUTO) 4 % (0-12); NEUTROPHILS % (AUTO) 67 % (42-75); PLATELET COUNT 297 10^3/uL (130-400); WHITE BLOOD COUNT 10.5 10^3/uL (4.3-11.0)
[2020-11-10 21:16] LABS: BACTERIA,URINE NEGATIVE /HPF; SQUAMOUS EPITHELIAL CELL,UR 0-2 /HPF; WBC,URINE 0-2 /HPF
[2020-11-10] MEDS ORDERED: fentaNYL INJECTION 100 MCG/2 ML AMP IVP ONE (21:30)
[2020-11-10] MEDS ORDERED: inSUlin (REGULAR) HUMAN 1 UNIT/0.01 ML (CHARGE PER UNIT) IV ONE (21:30)
[2020-11-10 22:11] LABS: ABG BASE EXCESS -13.3 MMOL/L (-2.5-2.5); ABG OXYGEN SATURATION 98 % (94-100); ABG PCO2 31 MMHG (35-45); ABG PO2 105 MMHG (79-93); ABG TCO2 13.7 MMOL/L (21.0-31.0)
[2020-11-10 22:15] LABS: ALLENS TEST POSITIVE; INSPIRED O2 RA; VENTILATOR NO
[2020-11-10 22:16] LABS: PATIENT TEMP 36.7
[2020-11-10 22:17] LABS: ABG PH 7.24 (7.37-7.43)
[2020-11-10] MEDS ORDERED: diphenhydrAMINE 50 MG/ML INJ (BENADRYL) IM ONE (22:30)
[2020-11-10] MEDS ORDERED: NS IV 1000 ML 1,000 ML IV SCH (22:30)
--- NOTE | 2020-11-10 23:47 | ED General ---
General Chief Complaint: Abdominal/GI Problems Stated Complaint: VOMITING Nursing Triage Note: C/O NAUSEA, STATES SHE HAS TAKEN PHENEGRAN AT HOME BUT IS UNABLE TO KEEP IT DOWN. VERBALIZES CHRONIC NAUSEA. Nursing Sepsis Screen: No Definite Risk Source of Information: Patient Exam Limitations: No Limitations History of Present Illness Date Seen by Provider: Nov 10, 2020 Time Seen by Provider: 20:30 Initial Comments Patient is a 60-year-old female who presents to the emergency room with a chief complaint of nausea and vomiting. Patient states she has had nausea and vomiting all evening long and that her medications at home, Phenergan has not been helping. Patient denies any fevers or chills. No cough. No URI symptoms. She denies diarrhea but states that she has a little bit of lower abdominal pain and a little bit of dysuria when she urinates. She states she had episodes of nausea and vomiting 2 or 3 days ago when she was in the hospital as well at that time. Patient states that Phenergan and Benadryl worked very well for her nausea, she is allergic to Zofran and Reglan. Patient states that she has chronic pain issues and was unable to hold down her pain medication since noon on Wednesday. All other review of systems reviewed and negative except as stated above. Timing/Duration: 12-24 Hours Severity: Moderate Modifying Factors: worse with Eating Associated Systoms: Denies Symptoms, Loss of Appetite, Nausea/Vomiting, Weakness Allergies and Home Medications Allergies Coded Allergies: ketorolac (Verified Allergy, Severe, ANAPHYLAXIS, PT TAKES ASA AT HOME, 03/06/19) ondansetron (Verified Allergy, Intermediate, RASH, 03/06/19) RASH/ HIVES scopolamine (Verified Allergy, Mild, Rash, 03/21/19) exenatide (Verified Allergy, Unknown, NAUSEA, 03/06/19) NON STOP VOMITING latex (Verified Allergy, Unknown, RASH, 03/06/19) metoclopramide (Verified Allergy, Unknown, RESTLESS LEGS, 03/06/19) erythromycin base (Verified Adverse Reaction, Unknown, 03/21/19) Home Medications Acetaminophen 325 Mg Capsule, 650 MG PO Q6H PRN for PAIN-MILD (1-4) OR TEMPATURE, (Reported) Apixaban 5 Mg Tablet, 5 MG PO BID, (Reported) Aspirin 81 Mg Tablet.dr, 81 MG PO DAILY, (Reported) Atorvastatin Calcium 20 Mg Tablet, 20 MG PO HS, (Reported) Diphenhydramine HCl 25 Mg Tablet, 25-50 MG PO Q6H PRN for ALLERGY SYMPTOMS, (Reported) Gabapentin 800 Mg Tablet, 1,600 MG PO HS, (Reported) TAKES 2 (800MG) TABLETS Gabapentin 800 Mg Tablet, 800 MG PO DAILY, (Reported) Glucagon,Human Recombinant 1 Mg/Kit Soln, 1 MG INJ UD PRN for HYPERGLYCEMIA, (Reported) Glycerin/Propylene Glycol 1 Each Droperette, 2 DROPS OU PRN PRN for DRY EYES, (R eported) Insulin Aspart 300 Units/3 Ml Solution, UNITS SC TIDAC, (Reported) USES PER SLIDING SCALE Insulin Detemir 100 Unit/1 Ml Insuln.pen, 15 UNIT SQ BID, (Reported) Melatonin 5 Mg Tablet, 5 MG PO HS, (Reported) Omeprazole 20 Mg Capsule.dr, 20 MG PO DAILY, (Reported) Patient Home Medication List Home Medication List Reviewed: Yes Review of Systems Review of Systems Constitutional: see HPI EENTM: no symptoms reported Cardiovascular: no symptoms reported Gastrointestinal: abdominal pain, diarrhea, nausea, vomiting Genitourinary: dysuria : No Musculoskeletal: joint pain (Chronic back pain) Past Jfcmhjp-Bswtgf-Luavto Hx Patient Social History Alcohol Use: Denies Use Number of Drinks Today: Alcohol Beverage of Choice: Wine Recreational Drug Use: Yes Drug of Choice: NARCOTIC ABUSE Type Used: Cigarettes Former Smoker, Quit: Nov 10, 2017 2nd Hand Smoke Exposure: No Recent Foreign Travel: No Contact w/Someone Who Travel: No Recent Infectious Disease Expo: No Recent Hopitalizations: Yes Physical Abuse: No Sexual Abuse: No Mistreated: No Fear: No Immunizations Up To Date Tetanus Booster (TDap): Unknown PED Vaccines UTD: No Date of Pneumonia Vaccine: Nov 06, 2019 Date of Influenza Vaccine: Nov 22, 2019 Seasonal Allergies Seasonal Allergies: Yes Past Medical History Surgeries: Yes (LITHOTRIPSY;LUMBAR SURGERY X 4;BMT'S;EGD'S WITH ESOPHAGEAL DILATIONS;) Cardiac, Coronary Stent, Ear Surgery, Gallbladder, Orthopedic, Renal Respiratory: Yes Chronic Bronchitis, Sleep Apnea Currently Using CPAP: No Currently Using BIPAP: No Cardiac: Yes (DVT'S IN ARMS; CARDIAC STENT X 1; CAROTID DISEASE;LINQ DEVICE) Chronic Edema/Swelling, Coronary Artery Disease, Deep Vein Thrombosis, High Cholesterol, Hypertension, Palpitations Neurological: Yes (NEUROPATHY IN HANDS AND FEET) Headaches /Migraines, Neuropathy 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 Disorders: No 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 Sexually Transmitted Disease: No HIV/AIDS: No Genitourinary: Yes Bladder Infection, Kidney Stones, Renal Failure Gastrointestinal: Yes (GASTRITIS;ESOPH STRICTURE/DILATION;GASTROPARESIS-CHRONIC N/V/ABD PAIN;DAVID) Gastroesophageal Reflux, Diverticulosis, Esophagitis, Irritable Bowel Musculoskeletal: Yes (CHRONIC GENERALIZED PAIN;CHRONIC BILAT SHOULDER PAIN;CHRONIC NECK PAIN ) Degenerate Disk Disease, Fibromyalgia, Chronic Back Pain Endocrine: Yes (NON-COMPLAINT;MULTIPLE EPISODES OF DKA-EASILY CONTROLLED ON INSULIN IN HOSP) Diabetes, Insulin dep HEENT: Yes (GLASSES; S/P BMT'S) Chronic Ear Infection Loss of Vision: Bilateral Hearing Impairment: Hard of Hearing Cancer: No Psychosocial: Yes Anxiety Integumentary: Yes Psoriasis Blood Disorders: No Adverse Reaction/Blood Tranf: No Family Medical History Cancer of mouth 19 FATHER ( of esophogeal cancer.) Cardiovascular disease 19 MOTHER G8 BROTHER Completed stroke 19 FATHER G8 BROTHER Diabetes mellitus G8 BROTHER FH: lung cancer 19 MOTHER Hypertension 19 FATHER Kidney disease 19 FATHER Myocardial infarction 19 MOTHER G8 BROTHER Respiratory disorder No Family History of: AIDS CAD Over 55 Years Old, CVA, Diabetes, GI Disease, Renal Disease PSH: -LINQ DEVICE PLACED 11/09/19 FOR REPORTED PALPITATIONS X 6 MONTHS, SINCE PERCOCET WAS DC'D -MULTIPLE CARDIAC CATHS--STENT X 1 TO LAD 07/13/15. LAST CATH 01/18/19--NO INTERVENTION -LUMBAR SPINE FUSION X 3--12/2002, 04/2007, AND 05/2007 -LUMBAR DISCECTOMY 10/2000--? LAMINECTOMY? -CERVICAL SPINE FUSION 11/2006 -CHOLECYSTECTOMY 1983 -BMT'S -LITHOTRIPSY AND RIGHT URETERAL STENT -EGD'S WITH ESOPHAGEAL DILATIONS -COLONOSCOPIES, LAST ONE 03/08/19 -PORT RIGHT CHEST -LEFT SHOULDER ROTATOR CUFF REPAIR 05/01/20--DR. PALACIOS -CONTINUOUS GLUCOSE MONITOR PRESENT 06/25/20--LLQ OF ABDOMEN Physical Exam Vital Signs Vital Signs - First Documented 11/10/20 20:07 Temp 36.7 Pulse 89 Resp 20 B/P (MAP) 146/85 (105) Pulse Ox 99 Capillary Refill : Less Than 3 Seconds Height, Weight, BMI Height: 5'1.00" Weight: 122lbs. 1.0oz. [id number]; 27.00 BMI Method:Estimated General Appearance: No Apparent Distress, WD/WN HEENT: PERRL/EOMI, Other (Dry oral mucosa) Respiratory: Lungs Clear, Normal Breath Sounds, No Accessory Muscle Use, No Respiratory Distress Cardiovascular: Regular Rate, Rhythm, No Murmur Gastrointestinal: Normal Bowel Sounds, Soft, Tenderness (Mild tenderness noted suprapubic bilateral lower quadrants) Extremity: Normal Capillary Refill, Normal Inspection, Normal Range of Motion, Non Tender, No Pedal Edema Neurologic/Psychiatric: Alert, Oriented x3, No Motor/Sensory Deficits, Normal Mood/Affect Skin: Normal Color, Warm/Dry Procedures/Interventions Date of ETT Placement: Dec 30, 2019 Time of ETT Placement: 0750 Progress/Results/Core Measures Suspected Sepsis Recent Fever Within 48 Hours: No Infection Criteria Present: None New/Unexplained Altered Menta: No Sepsis Screen: No Definite Risk SIRS Temperature: Pulse: 89 Respiratory Rate: 20 Laboratory Tests 11/10/20 20:30: White Blood Count 10.5 Blood Pressure 146 /85 Mean: 105 Laboratory Tests 11/10/20 20:30: Creatinine 1.68H, Platelet Count 297, Total Bilirubin 0.5 Results/Orders Lab Results Laboratory Tests Test 11/10/20 20:30 11/10/20 20:55 11/10/20 22:08 11/10/20 22:15 Range/Units White Blood Count 10.5 4.3-11.0 10^3/uL Red Blood Count 4.19 3.80-5.11 10^6/uL Hemoglobin 12.4 11.5-16.0 g/dL Hematocrit 37 35-52 % Mean Corpuscular Volume 89 80-99 fL Mean Corpuscular Hemoglobin 30 25-34 pg Mean Corpuscular Hemoglobin Concent 33 32-36 g/dL Red Cell Distribution Width 12.6 10.0-14.5 % Platelet Count 297 130-400 10^3/uL Mean Platelet Volume 11.6 9.0-12.2 fL Immature Granulocyte % (Auto) 0 % Neutrophils (%) (Auto) 67 42-75 % Lymphocytes (%) (Auto) 26 12-44 % Monocytes (%) (Auto) 4 0-12 % Eosinophils (%) (Auto) 2 0-10 % Basophils (%) (Auto) 1 0-10 % Neutrophils # (Auto) 7.0 1.8-7.8 10^3/uL Lymphocytes # (Auto) 2.8 1.0-4.0 10^3/uL Monocytes # (Auto) 0.4 0.0-1.0 10^3/uL Eosinophils # (Auto) 0.2 0.0-0.3 10^3/uL Basophils # (Auto) 0.1 0.0-0.1 10^3/uL Immature Granulocyte # (Auto) 0.0 0.0-0.1 10^3/uL Sodium Level 128 L 135-145 MMOL/L Potassium Level 4.6 3.6-5.0 MMOL/L Chloride Level 101 98-107 MMOL/L Carbon Dioxide Level 14 L 21-32 MMOL/L Anion Gap 13 5-14 MMOL/L Blood Urea Nitrogen 36 H 7-18 MG/DL Creatinine 1.68 H 0.60-1.30 MG/DL Estimat Glomerular Filtration Rate 31 BUN/Creatinine Ratio 21 Glucose Level 793 *H 70-105 MG/DL Calcium Level 8.8 8.5-10.1 MG/DL Corrected Calcium 8.8 8.5-10.1 MG/DL Total Bilirubin 0.5 0.1-1.0 MG/DL Aspartate Amino Transf (AST/SGOT) 13 5-34 U/L Alanine Aminotransferase (ALT/SGPT) 21 0-55 U/L Alkaline Phosphatase 135 40-136 U/L Total Protein 7.2 6.4-8.2 GM/DL Albumin 4.0 3.2-4.5 GM/DL Lipase 20 8-78 U/L Urine Color YELLOW Urine Clarity CLEAR Urine pH 6.0 5-9 Urine Specific [place] 1.020 1.016-1.022 Urine Protein 2+ H NEGATIVE Urine Glucose (UA) 3+ H NEGATIVE Urine Ketones TRACE H NEGATIVE Urine Nitrite NEGATIVE NEGATIVE Urine Bilirubin NEGATIVE NEGATIVE Urine Urobilinogen 0.2 < = 1.0 MG/DL Urine Leukocyte Esterase NEGATIVE NEGATIVE Urine RBC (Auto) TRACE-I NEGATIVE Urine RBC 5-10 H /HPF Urine WBC 0-2 /HPF Urine Squamous Epithelial Cells 0-2 /HPF Urine Crystals NONE /LPF Urine Bacteria NEGATIVE /HPF Urine Casts NONE /LPF Urine Mucus NEGATIVE /LPF Urine Culture Indicated NO Blood Gas Puncture Site LEFT RADIAL Blood Gas Patient Temperature 36.7 Arterial Blood pH 7.24 *L 7.37-7.43 Arterial Blood Partial Pressure CO2 31 L 35-45 MMHG Arterial Blood Partial Pressure O2 105 H 79-93 MMHG Arterial Blood HCO3 13 *L 23-27 MMOL/L Arterial Blood Total CO2 13.7 L 21.0-31.0 MMOL/L Arterial Blood Oxygen Saturation 98 94-100 % Arterial Blood Base Excess -13.3 L -2.5-2.5 MMOL/L Antonio Test POSITIVE Blood Gas Ventilator Setting NO Blood Gas Inspired Oxygen RA Glucometer 517 *H 70-110 MG/DL Test 11/10/20 23:39 Range/Units Glucometer 313 H 70-110 MG/DL My Orders Orders - RIKKI PANCHAL MD Ed Iv/Invasive Line Start (11/10/20 20:35) Cbc With Automated Diff (11/10/20 20:35) Comprehensive Metabolic Panel (11/10/20 20:35) Lipase (11/10/20 20:35) Ns Iv 1000 Ml (Sodium Chloride 0.9%) (11/10/20 20:45) Diphenhydramine Injection (Benadryl Inje (11/10/20 20:45) Promethazine Injection (Phenergan Injec (11/10/20 20:45) Fentanyl Injection (Sublimaze Injection (11/10/20 21:30) Insulin (Regular) Human (Novolin R (Per (11/10/20 21:30) Arterial Blood Gas (11/10/20 22:08) Promethazine Injection (Phenergan Injec (11/10/20 22:15) Accucheck Stat ONCE (11/10/20 22:11) Ns Iv 1000 Ml (Sodium Chloride 0.9%) (11/10/20 22:30) Diphenhydramine Injection (Benadryl Inje (11/10/20 22:30) Heparin (Central Iv Flush) (Heparin ([place] (11/11/20 00:00) Medications Given in ED Current Medications Medications Dose Ordered Sig/Jackie Route Start Time Stop Time Status Last Admin Dose Admin Diphenhydramine HCl 25 mg ONCE ONCE IM 11/10/20 22:30 11/10/20 22:31 DC 11/10/20 22:33 25 MG Diphenhydramine HCl 25 mg ONCE ONCE IVP 11/10/20 20:45 11/10/20 20:46 DC 11/10/20 21:00 25 MG Fentanyl Citrate 25 mcg ONCE ONCE IVP 11/10/20 21:30 11/10/20 21:31 DC 11/10/20 21:28 25 MCG Heparin Sodium (Porcine) 500 unit ONCE ONCE IV 11/11/20 00:00 11/11/20 00:01 DC 11/11/20 00:00 500 UNIT Insulin Human Regular 10 unit ONCE ONCE IV 11/10/20 21:30 11/10/20 21:31 DC 11/10/20 21:26 10 UNIT Promethazine HCl 25 mg ONCE ONCE IVP 11/10/20 20:45 11/10/20 20:46 DC 11/10/20 21:02 25 MG Promethazine HCl 25 mg ONCE ONCE IVP 11/10/20 22:15 11/10/20 22:16 DC 11/10/20 22:27 25 MG Vital Signs/I&O 11/10/20 20:07 Temp 36.7 Pulse 89 Resp 20 B/P (MAP) 146/85 (105) Pulse Ox 99 Capillary Refill : Less Than 3 Seconds Blood Pressure Mean: 105 Point of Care Testing Finger Stick Blood Glucose: 313 Blood Glucose Action Taken: AND RN NOTIFIED Progress Note : Time: 23:50 Progress Note Multiple reevaluations throughout the course of the patient's ED visit. Patient was given 2 doses of Phenergan and Benadryl with alleviation of her nausea and vomiting. She was hydrated with 2 L of normal saline. She was also given 10 units of regular insulin IV with improvement of her blood sugar at 1st- 513 and then to 313. Patient's pain was mildly controlled with 25 mcg of fentanyl. Patient states she is not been able to hold down her home pain medications in 24 hours. Patient strongly encouraged to hydrate at home and monitor her blood sugars closely. She is advised to follow-up with her primary care doctor tomorrow. Patient's labs have all been reviewed she was mildly acidotic with a pH of 7.24 and I believe this is due to her dehydration and hyperglycemia. She did not have a wide anion gap metabolic acidosis therefore no indications at this time for emergent hospitalization. She has not vomited at all while she has been here in the emergency department. Review of the medical record reveals that the patient has a long documented history of medical noncompliance. Patient is strongly encouraged to be compliant with her medications as well as blood sugar management at home. She verbalizes understanding. All questions are sought and answered. Patient is stable for discharge. Departure Impression Primary Impression: Uncontrolled type 1 diabetes mellitus with hyperglycemia Additional Impression: Nausea and vomiting Qualified Codes: R11.2 - Nausea with vomiting, unspecified Disposition: HOME, SELF-CARE Condition: Stable Departure-Patient Inst. Decision time for Depature: 23:53 Referrals: CINDY CALABRESE DO (PCP/Family) Primary Care Physician Patient Instructions: Nausea and Vomiting, Adult (DC), Hyperglycemia, Adult (DC) Add. Discharge Instructions: Please drink plenty of fluids at home to stay well-hydrated. Please closely monitor your blood sugars check them often, multiple times a day. Continue to take your routine home medications as prescribed. Use your Phenergan and benadryl at home as needed for nausea. If you have persistent nausea and vomiting that is uncontrolled with your home medications, Phenergan and Benadryl, please come back to the emergency room for reevaluation. Please call your primary care doctor's office tomorrow, Wednesday morning for a follow-up appointment this week. Copy Copies To 1: CINDY CALABRESE KATHRYN M MD Nov 10, 2020 23:47
[2020-11-11] MEDS ORDERED: HEParin (CENTRAL IV FLUSH) 500 UNIT/5 ML SYR IV ONE
[2020-11-11 00:18] VITALS: BP 116/68
== END 2020-11-11 00:18 | disposition home or self-care (01) ==
LOC: EDUNIT# 19:59 → ER 20:02
DX: E10.65 Type 1 diabetes mellitus with hyperglycemia (principal); R11.2 Nausea with vomiting, unspecified; E78.00 Pure hypercholesterolemia, unspecified; K21.9 Gastro-esophageal reflux disease without esophagitis; Z91.040 Latex allergy status; Z88.1 Allergy status to other antibiotic agents; Z88.8 Allergy status to other drugs, medicaments and biological substances; Z88.6 Allergy status to analgesic agent; Z87.891 Personal history of nicotine dependence; Z95.5 Presence of coronary angioplasty implant and graft; Z86.718 Personal history of other venous thrombosis and embolism; Z82.49 Family history of ischemic heart disease and other diseases of the circulatory system; Z83.3 Family history of diabetes mellitus; Z80.1 Family history of malignant neoplasm of trachea, bronchus and lung; Z80.0 Family history of malignant neoplasm of digestive organs; Z79.01 Long term (current) use of anticoagulants; Z79.82 Long term (current) use of aspirin
CPT/HCPCS: 36415; 80053; 81000; 82805; 82962; 83690; 85025

== ENCOUNTER 2020-11-11 13:42 | Inpatient (IN) | payer MEDICARE ==
[~2020-11-11] VITALS: Ht 152.4 cm; Wt 63.6 kg
[2020-11-11] MEDS ORDERED: diphenhydrAMINE 50 MG/ML INJ (BENADRYL) ONE (13:56)
[2020-11-11 13:58] LABS: BASOPHILS # (AUTO) 0.1 10^3/uL (0.0-0.1); BASOPHILS % (AUTO) 1 % (0-10); EOSINOPHILS % (AUTO) 0 % (0-10); HEMATOCRIT 36 % (35-52); HEMOGLOBIN 11.6 g/dL (11.5-16.0); LYMPHOCYTES # (AUTO) 1.3 10^3/uL (1.0-4.0); LYMPHOCYTES % (AUTO) 11 % (12-44); MEAN CORPUSCULAR HEMOGLOBIN 29 pg (25-34); MEAN CORPUSCULAR HGB CONC 32 g/dL (32-36); MEAN CORPUSCULAR VOLUME 91 fL (80-99); MEAN PLATELET VOLUME 11.1 fL (9.0-12.2); MONOCYTES # (AUTO) 0.1 10^3/uL (0.0-1.0); MONOCYTES % (AUTO) 1 % (0-12); NEUTROPHILS # (AUTO) 10.8 10^3/uL (1.8-7.8); NEUTROPHILS % (AUTO) 87 % (42-75); PLATELET COUNT 265 10^3/uL (130-400); WHITE BLOOD COUNT 12.4 10^3/uL (4.3-11.0)
[2020-11-11] MEDS ORDERED: NS IV 1000 ML 1,000 ML IV SCH ×2 (14:00→16:00)
[2020-11-11] MEDS ORDERED: diphenhydrAMINE 50 MG/ML INJ (BENADRYL) IVP ONE (14:00)
--- NOTE | 2020-11-11 14:01 | ED General ---
General Stated Complaint: N/V, HIGH B.S Source of Information: Patient, Old Records History of Present Illness Date Seen by Provider: Nov 11, 2020 Time Seen by Provider: 13:45 Initial Comments PT ARRIVES VIA EMS FROM HOME--PT WALKED TO AMBULANCE ON HER OWN C/O "ELEVATED BLOOD SUGAR" HAS NOT CHECKED HER BLOOD SUGAR SINCE YESTERDAY MORNING--CLAIMS "THE BATTERY " --HAS NOT ATTEMPTED AT ANY TIME TO REPLACE BATTERIES BLOOD GLUCOSE READING "HIGH" FOR EMS EMS GAVE PHENERGAN 25 MG AND STARTED IV SALINE PT WAS SEEN HERE IN ER LAST PM FOR SAME--DISMISSED AROUND MIDNIGHT. WAS ADVISED TO FOLLOW UP WITH HER PCP TODAY, BUT SHE HAS NOT ATTEMPTED TO CONTACT HIM. CLAIMS SHE HAS BEEN TAKING HER NORMAL DOSE OF LEVEMIR 15 UNITS BID, AND STATES HER LAST DOSE WAS AT 10 AM. CLAIMS SHE HAS BEEN TAKING 5 UNITS OF NOVOLOG EVERY 2 HOURS, AND LAST DOSE WAS AT NOON ( PT LATER TOLD NURSE THAT SHE HAS NOT BEEN TAKING HER INSULIN BECAUSE HER GLUCOMETER ISN'T WORKING ) CLAIMS SHE HAS NOT HAD ANYTHING TO EAT OR DRINK SINCE NOON ON Wednesday11/09/20 CLAIMS LAST VOID WAS AT 0600 TODAY C/O NAUSEA AND DRY HEAVES. NO DIARRHEA NO ABDOMINAL PAIN NO FEVER OR RECENT ILLNESS NO COVID-19 SYMPTOMS OTHERWISE AND NO KNOWN EXPOSURE TO COVID-19. PT WITH A MULTITUDE OF VISITS FOR SAME, AND WITH LONG HISTORY OF EXTREME NON- COMPLIANCE IN ALL ASPECTS OF CARE. VERY WELL KNOWN TO ER AND EMS STAFF. MULTIPLE EPISODES OF DKA, VERY EASILY CONTROLLED IN HOSPITAL WITH INSULIN PT ALSO WITH MULTITUDE OF VISITS FOR VARIOUS PAIN COMPLAINTS AND HAS A VERY E XTENSIVE HISTORY OF NARCOTIC ABUSE, AND HAS BEEN PRESCRIBED SUBOXONE IN THE PAST--WHILE SHE WAS A PT AT [facility]. PER MED RECONCILIATION, PT FILLED RX FOR HYDROCODONE #21 ON 10/09/20, AND RX FOR OXYCODONE 10 MG #60 ON 10/22/20 PT HAS HAD A CONTINUOUS GLUCOSE MONITOR DEVICE IN THE PAST, BUT STATES SHE HASN'T HAD IT "FOR MONTHS AND MONTHS" BUT CLAIMS THAT SOMEONE CAME TODAY TO GET HER SET BACK UP WITH ONE, "JUST BEFORE I LEFT HOME TO COME HERE" --BUT DID NOT HAVE THEM GO AHEAD AND SET IT UP. ADDITIONALLY, PT HAD CATARACT SURGERY THE LAST 2 FRIDAYS COVID-19 TESTING BEFORE EACH SURGERY WAS NEGATIVE. PCP: DR. CALABRESE Allergies and Home Medications Allergies Coded Allergies: ketorolac (Verified Allergy, Severe, ANAPHYLAXIS, PT TAKES ASA AT HOME, 03/06/19) ondansetron (Verified Allergy, Intermediate, RASH, 03/06/19) RASH/ HIVES scopolamine (Verified Allergy, Mild, Rash, 03/21/19) exenatide (Verified Allergy, Unknown, NAUSEA, 03/06/19) NON STOP VOMITING latex (Verified Allergy, Unknown, RASH, 03/06/19) metoclopramide (Verified Allergy, Unknown, RESTLESS LEGS, 03/06/19) erythromycin base (Verified Adverse Reaction, Unknown, 03/21/19) Home Medications Acetaminophen 325 Mg Capsule, 650 MG PO Q6H PRN for PAIN-MILD (1-4) OR TEMPATURE, (Reported) Apixaban 5 Mg Tablet, 5 MG PO BID, (Reported) Aspirin 81 Mg Tablet.dr, 81 MG PO DAILY, (Reported) Atorvastatin Calcium 20 Mg Tablet, 20 MG PO HS, (Reported) Diphenhydramine HCl 25 Mg Tablet, 25-50 MG PO Q6H PRN for ALLERGY SYMPTOMS, (Reported) Gabapentin 800 Mg Tablet, 1,600 MG PO HS, (Reported) TAKES 2 (800MG) TABLETS Gabapentin 800 Mg Tablet, 800 MG PO DAILY, (Reported) Glucagon,Human Recombinant 1 Mg/Kit Soln, 1 MG INJ UD PRN for HYPERGLYCEMIA, (Reported) Glycerin/Propylene Glycol 1 Each Droperette, 2 DROPS OU PRN PRN for DRY EYES, (Reported) Insulin Aspart 300 Units/3 Ml Solution, UNITS SC TIDAC, (Reported) USES PER SLIDING SCALE Insulin Detemir 100 Unit/1 Ml Insuln.pen, 15 UNIT SQ BID, (Reported) Melatonin 5 Mg Tablet, 5 MG PO HS, (Reported) Omeprazole 20 Mg Capsule.dr, 20 MG PO DAILY, (Reported) Patient Home Medication List Home Medication List Reviewed: Yes Review of Systems Review of Systems Constitutional: see HPI; No chills, No diaphoresis, No fever; malaise, weakness EENTM: other (DRY MOUTH; RECENT BILATERAL CATARACT SURGERY--NO EYE COMPLAINTS AT THIS TIME); No nose congestion, No throat pain Respiratory: no symptoms reported; No cough, No short of breath Cardiovascular: no symptoms reported; No chest pain Gastrointestinal: see HPI; No abdominal pain, No constipation, No diarrhea; loss of appetite, nausea, vomiting Genitourinary: see HPI, decreased output Skin: no symptoms reported Psychiatric/Neurological: No Symptoms Reported Hematologic/Lymphatic: No Symptoms Reported Immunological/Allergic: no symptoms reported Past Erjfdha-Numcfp-Xxsphi Hx Past Med/Social Hx: Reviewed and Corrections made Patient Social History Alcohol Beverage of Choice: Wine Recreational Drug Use: Yes Drug of Choice: NARCOTIC ABUSE Smoking Status: Current Everyday Smoker Type Used: Cigarettes 2nd Hand Smoke Exposure: No Recent Hopitalizations: Yes Immunizations Up To Date Tetanus Booster (TDap): Unknown PED Vaccines UTD: No Date of Pneumonia Vaccine: Nov 06, 2019 Date of Influenza Vaccine: Nov 22, 2019 Seasonal Allergies Seasonal Allergies: Yes Past Medical History Surgeries: Yes (LITHOTRIPSY;LUMBAR SURGERY X 4;BMT'S;EGD'S WITH ESOPHAGEAL DILATIONS;) Cardiac, Coronary Stent, Ear Surgery, Gallbladder, Orthopedic, Renal Respiratory: Yes Chronic Bronchitis, Sleep Apnea Currently Using CPAP: No Currently Using BIPAP: No Cardiac: Yes (DVT'S IN ARMS; CARDIAC STENT X 1; CAROTID DISEASE;LINQ DEVICE) Chronic Edema/Swelling, Coronary Artery Disease, Deep Vein Thrombosis, High Cholesterol, Hypertension, Palpitations Neurological: Yes (NEUROPATHY IN HANDS AND FEET) Headaches /Migraines, Neuropathy 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 Disorders: No 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 Disorders: 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 Sexually Transmitted Disease: No HIV/AIDS: No Genitourinary: Yes Bladder Infection, Kidney Stones, Renal Failure Gastrointestinal: Yes (GASTRITIS;ESOPH STRICTURE/DILATION;GASTROPARESIS-CHRONIC N/V/ABD PAIN;DAVID) Gastroesophageal Reflux, Diverticulosis, Esophagitis, Irritable Bowel Musculoskeletal: Yes (CHRONIC GENERALIZED PAIN;CHRONIC BILAT SHOULDER PAIN;CHRONIC NECK PAIN ) Degenerate Disk Disease, Fibromyalgia, Chronic Back Pain Endocrine: Yes (NON-COMPLAINT;MULTIPLE EPISODES OF DKA-EASILY CONTROLLED ON INSULIN IN HOSP) Diabetes, Insulin dep HEENT: Yes (GLASSES; S/P BMT'S;BILAT CATARACT SURGERY 10/2020) Cataract, Chronic Ear Infection Loss of Vision: Bilateral Hearing Impairment: Hard of Hearing Cancer: No Psychosocial: Yes Anxiety Integumentary: Yes Psoriasis Blood Disorders: No Adverse Reaction/Blood Tranf: No Family Medical History Cancer of mouth 19 FATHER ( of esophogeal cancer.) Cardiovascular disease 19 MOTHER G8 BROTHER Completed stroke 19 FATHER G8 BROTHER Diabetes mellitus G8 BROTHER FH: lung cancer 19 MOTHER Hypertension 19 FATHER Kidney disease 19 FATHER Myocardial infarction 19 MOTHER G8 BROTHER Respiratory disorder No Family History of: AIDS CAD Over 55 Years Old, CVA, Diabetes, GI Disease, Renal Disease SOCIAL HISTORY: -ETOH--RARELY USES -DRUGS--NARCOTIC ABUSE -SMOKES 1 PPD PSH: -LINQ DEVICE PLACED 11/09/19 FOR REPORTED PALPITATIONS X 6 MONTHS, SINCE PERCOCET WAS DC'D -MULTIPLE CARDIAC CATHS--STENT X 1 TO LAD 07/13/15. LAST CATH 01/18/19--NO INTERVENTION -LUMBAR SPINE FUSION X 3--12/2002, 04/2007, AND 05/2007 -LUMBAR DISCECTOMY 10/2000--? LAMINECTOMY? -CERVICAL SPINE FUSION 11/2006 -CHOLECYSTECTOMY 1984 -BMT'S -LITHOTRIPSY AND RIGHT URETERAL STENT -EGD'S WITH ESOPHAGEAL DILATIONS -COLONOSCOPIES, LAST ONE 03/08/19 -PORT RIGHT CHEST -LEFT SHOULDER ROTATOR CUFF REPAIR 05/01/20--DR. PALACIOS -CONTINUOUS GLUCOSE MONITOR PRESENT 06/25/20--LLQ OF ABDOMEN--NOT PRESENT 10/2020 -BILATERAL CATARACT SURGERY 10/2020 Physical Exam Vital Signs Vital Signs - First Documented 11/11/20 13:45 Temp 36.6 Pulse 105 Resp 20 B/P (MAP) 192/83 (119) Pulse Ox 98 O2 Delivery Room Air Capillary Refill : Height, Weight, BMI Height: 5'1.00" Weight: 122lbs. 1.0oz. 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 Norm as Tested Skin: Normal Color, Warm/Dry Focused Exam Lactate Level 11/11/20 15:00: Lactic Acid Level Laboratory Tests Test 11/11/20 15:00 Procedures/Interventions Date of ETT Placement: Dec 30, 2019 Time of ETT Placement: 0750 Progress/Results/Core Measures Suspected Sepsis SIRS Temperature: Pulse: Respiratory Rate: Laboratory Tests 11/11/20 13:49: White Blood Count 12.4H Blood Pressure / Mean: 11/11/20 15:00: Laboratory Tests 11/11/20 13:49: Creatinine 1.76H, Platelet Count 265, Total Bilirubin 0.4 Results/Orders Lab Results Laboratory Tests Test 11/11/20 13:49 11/11/20 14:29 11/11/20 14:40 11/11/20 15:00 Range/Units White Blood Count 12.4 H 4.3-11.0 10^3/uL Red Blood Count 3.95 3.80-5.11 10^6/uL Hemoglobin 11.6 11.5-16.0 g/dL Hematocrit 36 35-52 % Mean Corpuscular Volume 91 80-99 fL Mean Corpuscular Hemoglobin 29 25-34 pg Mean Corpuscular Hemoglobin Concent 32 32-36 g/dL Red Cell Distribution Width 12.9 10.0-14.5 % Platelet Count 265 130-400 10^3/uL Mean Platelet Volume 11.1 9.0-12.2 fL Immature Granulocyte % (Auto) 0 % Neutrophils (%) (Auto) 87 H 42-75 % Lymphocytes (%) (Auto) 11 L 12-44 % Monocytes (%) (Auto) 1 0-12 % Eosinophils (%) (Auto) 0 0-10 % Basophils (%) (Auto) 1 0-10 % Neutrophils # (Auto) 10.8 H 1.8-7.8 10^3/uL Lymphocytes # (Auto) 1.3 1.0-4.0 10^3/uL Monocytes # (Auto) 0.1 0.0-1.0 10^3/uL Eosinophils # (Auto) 0.0 0.0-0.3 10^3/uL Basophils # (Auto) 0.1 0.0-0.1 10^3/uL Immature Granulocyte # (Auto) 0.1 0.0-0.1 10^3/uL Neutrophils % (Manual) 90 % Lymphocytes % (Manual) 8 % Monocytes % (Manual) 1 % Eosinophils % (Manual) 0 % Basophils % (Manual) 0 % Band Neutrophils 1 % Blood Morphology Comment NORMAL Sodium Level 131 L 135-145 MMOL/L Potassium Level 4.5 3.6-5.0 MMOL/L Chloride Level 102 98-107 MMOL/L Carbon Dioxide Level 11 L 21-32 MMOL/L Anion Gap 18 H 5-14 MMOL/L Blood Urea Nitrogen 34 H 7-18 MG/DL Creatinine 1.76 H 0.60-1.30 MG/DL Estimat Glomerular Filtration Rate 29 BUN/Creatinine Ratio 19 Glucose Level 823 *H 70-105 MG/DL Calcium Level 8.5 8.5-10.1 MG/DL Corrected Calcium 8.7 8.5-10.1 MG/DL Magnesium Level 2.0 1.6-2.4 MG/DL Total Bilirubin 0.4 0.1-1.0 MG/DL Aspartate Amino Transf (AST/SGOT) 11 5-34 U/L Alanine Aminotransferase (ALT/SGPT) 18 0-55 U/L Alkaline Phosphatase 129 40-136 U/L Total Protein 6.9 6.4-8.2 GM/DL Albumin 3.8 3.2-4.5 GM/DL Amylase Level 51 25-125 U/L Lipase 15 8-78 U/L Beta-Hydroxybutyrate (Chem panel) 5.41 H 0.00-0.27 MMOL/L Blood Gas Puncture Site RIGHT BRACHIAL Blood Gas Patient Temperature 36.6 Arterial Blood pH 7.19 *L 7.37-7.43 Arterial Blood Partial Pressure CO2 25 L 35-45 MMHG Arterial Blood Partial Pressure O2 117 H 79-93 MMHG Arterial Blood HCO3 9 *L 23-27 MMOL/L Arterial Blood Total CO2 9.9 L 21.0-31.0 MMOL/L Arterial Blood Oxygen Saturation 98 94-100 % Arterial Blood Base Excess -17.6 L -2.5-2.5 MMOL/L Antonio Test POSITIVE Blood Gas Ventilator Setting NO Blood Gas Inspired Oxygen N/A Urine Color YELLOW Urine Clarity CLEAR Urine pH 6.0 5-9 Urine Specific [place] 1.015 L 1.016-1.022 Urine Protein 2+ H NEGATIVE Urine Glucose (UA) 3+ H NEGATIVE Urine Ketones 2+ H NEGATIVE Urine Nitrite NEGATIVE NEGATIVE Urine Bilirubin NEGATIVE NEGATIVE Urine Urobilinogen 0.2 < = 1.0 MG/DL Urine Leukocyte Esterase NEGATIVE NEGATIVE Urine RBC (Auto) TRACE-L NEGATIVE Urine RBC 2-5 H /HPF Urine WBC RARE /HPF Urine Crystals NONE /LPF Urine Bacteria TRACE /HPF Urine Casts NONE /LPF Urine Mucus NEGATIVE /LPF Urine Culture Indicated NO My Orders Orders - PURA PIÑA DO Accucheck Stat ONCE (11/11/20 13:46) Ed Iv/Invasive Line Start (11/11/20 13:46) Monitor-Rhythm Ecg Trace Only (11/11/20 13:46) Amylase (11/11/20 13:46) Arterial Blood Gas (11/11/20 13:46) Cbc With Automated Diff (11/11/20 13:46) Comprehensive Metabolic Panel (11/11/20 13:46) Drug Screen Stat (Urine) (11/11/20 13:46) Lactic Acid Analyzer (11/11/20 13:46) Lipase (11/11/20 13:46) Magnesium (11/11/20 13:46) Ua Culture If Indicated (11/11/20 13:46) Ed Iv/Invasive Line Start (11/11/20 13:46) Ns Iv 1000 Ml (Sodium Chloride 0.9%) (11/11/20 14:00) Beta Hydroxybutyrate (11/11/20 13:53) Diphenhydramine Injection (Benadryl Inje (11/11/20 14:00) Manual Differential (11/11/20 13:49) Diphenhydramine Injection (Benadryl Inje (11/11/20 13:56) Sodium Bicarbonate 8.4% Vial (Sodium Bic (11/11/20 14:45) Medications Given in ED Current Medications Medications Dose Ordered Sig/Jackie Route Start Time Stop Time Status Last Admin Dose Admin Diphenhydramine HCl 25 mg ONCE ONCE IVP 11/11/20 14:00 11/11/20 14:01 DC 11/11/20 14:01 25 MG Sodium Bicarbonate 50 meq ONCE ONCE IV 11/11/20 14:45 11/11/20 14:46 DC 11/11/20 15:01 50 MEQ Vital Signs/I&O 11/11/20 13:45 Temp 36.6 Pulse 105 Resp 20 B/P (MAP) 192/83 (119) Pulse Ox 98 O2 Delivery Room Air Capillary Refill : Progress Note : Progress Note WANTING IV BENADRYL SOON SHE ARRIVES. ACCUCHECK-"HIGH" ON ARRIVAL PT GIVEN IV FLUIDS NO VOMITING DURING ER STAY UNEVENTFUL STAY Departure Communication (Admissions) 1440--SPOKE WITH DR. BRADSHAW, HOSPITALIST, ACCEPTS PT FOR ADMIT. Impression Primary Impression: Diabetic ketoacidosis Additional Impressions: Uncontrolled insulin dependent diabetes mellitus DEHYDRATION Hyponatremia Non-compliance HTN (hypertension) Disposition: ADMITTED INPATIENT Condition: Stable Admissions Decision to Admit Reason: Admit from ER (General) Decision to Admit/Date: Nov 11, 2020 Time/Decision to Admit Time: 14:40 Departure-Patient Inst. Referrals: CINDY CALABRESE DO (PCP/Family) Primary Care Physician PURA PIÑA DO Nov 11, 2020 14:01
[2020-11-11 14:08] LABS: ALBUMIN 3.8 GM/DL (3.2-4.5); POTASSIUM 4.5 MMOL/L (3.6-5.0)
[2020-11-11 14:10] LABS: CALCIUM 8.5 MG/DL (8.5-10.1)
[2020-11-11 14:11] LABS: TOTAL PROTEIN 6.9 GM/DL (6.4-8.2)
[2020-11-11 14:13] LABS: BILIRUBIN,TOTAL 0.4 MG/DL (0.1-1.0)
[2020-11-11 14:14] LABS: CREATININE SERUM 1.76 MG/DL (0.60-1.30)
[2020-11-11 14:22] LABS: BAND NEUTROPHILS 1 %; BASOPHILS % (MANUAL) 0 %; EOSINOPHILS % (MANUAL) 0 %; LYMPHOCYTES % (MANUAL) 8 %; MONOCYTES % (MANUAL) 1 %; NEUTROPHILS % (MANUAL) 90 %; RBC MORPH NORMAL
[2020-11-11 14:34] LABS: ABG BASE EXCESS -17.6 MMOL/L (-2.5-2.5); ABG OXYGEN SATURATION 98 % (94-100); ABG PCO2 25 MMHG (35-45); ABG PO2 117 MMHG (79-93); ABG TCO2 9.9 MMOL/L (21.0-31.0)
[2020-11-11 14:36] LABS: ABG PH 7.19 (7.37-7.43)
[2020-11-11 14:37] LABS: ALLENS TEST POSITIVE; PATIENT TEMP 36.6; VENTILATOR NO
[2020-11-11] MEDS ORDERED: SODIUM BICARB 8.4% 50 MEQ/50 ML VIAL IV ONE (14:45)
[2020-11-11 14:52] LABS: BILIRUBIN,URINE NEGATIVE (NEGATIVE); CLARITY,URINE CLEAR; COLOR,URINE YELLOW; GLUCOSE, URINE (UA) 3+ (NEGATIVE); KETONES,URINE 2+ (NEGATIVE); LEUKOCYTE ESTERASE ,URINE NEGATIVE (NEGATIVE); NITRITE,URINE NEGATIVE (NEGATIVE); PROTEIN,URINE 2+ (NEGATIVE)
[2020-11-11 15:00] LABS: BACTERIA,URINE TRACE /HPF; WBC,URINE RARE /HPF
[2020-11-11 15:15] VITALS: BP 145/103
--- NOTE | 2020-11-11 15:15 | NUR ---
1ST LITER OF NS WAS STARTED BY EMS AND FINISHED. 2ND LITER OF FLUIDS HUNG AND CONTINUED WHEN ADMITTED TO ICU.
[2020-11-11 15:19] LABS: AMPHETAMINE SCREEN, URINE NEGATIVE (NEGATIVE); BARBITURATE SCREEN URINE NEGATIVE (NEGATIVE); BENZODIAZEPINES SCREEN URINE NEGATIVE (NEGATIVE); CANNABINOID SCREEN, URINE NEGATIVE (NEGATIVE); COCAINE SCREEN URINE NEGATIVE (NEGATIVE); METHADONE STAT NEGATIVE (NEGATIVE); METHAMPHETAMINE SCREEN URINE S NEGATIVE (NEGATIVE); OPIATE SCREEN URINE NEGATIVE (NEGATIVE); OXYCODONE STAT NEGATIVE (NEGATIVE); PROPOXYPHENE STAT NEGATIVE (NEGATIVE); TRICYCLIC ANTIDEPRESSANTS SCRE NEGATIVE (NEGATIVE)
[2020-11-11] MEDS ORDERED: 1/2 NS IV SOLUTION 1,000 ML IV ONE (15:36)
[2020-11-11] MEDS ORDERED: POTASSIUM CL 10MEQ/50ML IVPB 50 ML IV ONE (15:36)
[2020-11-11] MEDS ORDERED: inSUlin (REGULAR) HUMAN 1 UNIT/0.01 ML (CHARGE PER UNIT) ONE (15:46)
[2020-11-11] MEDS ORDERED: CATHETER FLUSH 10 ML SYR IV PRN (16:00)
[2020-11-11] MEDS ORDERED: ENOXAPARIN 30 MG/0.3 ML (LOVENOX) SYR SC SCH (16:00)
[2020-11-11] MEDS ORDERED: POTASSIUM CL 10MEQ/50ML IVPB 50 ML IV SCH (16:00)
[2020-11-11] MEDS ORDERED: inSUlin (REGULAR) HUMAN 1 UNIT/0.01 ML (CHARGE PER UNIT) SC NR (16:00)
[2020-11-11] MEDS: PROMETHAZINE INJ 25 MG/ML (PHENERGAN) AMP IV PRN ×2 (16:17→20:36)
[2020-11-11] MEDS: diphenhydrAMINE 50 MG/ML INJ (BENADRYL) IV PRN ×2 (16:17→20:36)
[2020-11-11] MEDS: 1/2 NS IV SOLUTION 1,000 ML IV SCH ×2 (16:21→20:35)
[2020-11-11] MEDS: POTASSIUM CL 10MEQ/50ML IVPB 50 ML IV SCH ×3 (16:22→22:57)
[2020-11-11] MEDS: PANTOPRAZOLE 40 MG (PROTONIX) VIAL IV SCH (16:52)
--- NOTE | 2020-11-11 18:06 | NUR ---
THIS NURSE NOTIFIED DR BRADSHAW PT IS C/O 08/01 PAIN. HER SBP HAS BEEN 180-190. PT CANNOT VERIFY HER HOME MEDICATION LIST. DR BRADSHAW TO PUT IN ORDERS. WILL CONTINUE TO MONITOR.
[2020-11-11 18:11] LABS: ABG BASE EXCESS -13.9 MMOL/L (-2.5-2.5); ABG OXYGEN SATURATION 97 % (94-100); ABG PCO2 22 MMHG (35-45); ABG PO2 116 MMHG (79-93); ABG TCO2 11.9 MMOL/L (21.0-31.0)
[2020-11-11 18:13] LABS: ABG PH 7.32 (7.37-7.43); ALLENS TEST POSITIVE; PATIENT TEMP 36.3; VENTILATOR NO
[2020-11-11] MEDS ORDERED: ACETAMINOPHEN 325 MG TABLET PO PRN (18:15)
--- NOTE | 2020-11-11 18:18 | History & Physical-Hospitalist ---
History of Present Illness HPI/Chief Complaint Itzel Urbano is a 60 year old female with poorly controlled insulin dependent diabetes mellitus who presented stating her blood sugar was high. She tells me that she has not been able to check her blood sugar at home because the battery in her monitor stopped working. She says she has been intermittently dosing herself with insulin. She has not been feeling well. She reports nausea and vomiting. She denies fevers and chills. She denies shortness of breath and cough. She denies chest pain. She denies abdominal pain. She denies dysuria. She denies any trouble obtaining her insulin. She reports back pain for which she has been taking "Percocet without Tylenol". Source: patient Exam Limitations: no limitations Date Seen 11/11/20 Time Seen by a Provider: 15:45 Attending Physician Lulu Bradshaw MD PCP Gerardo Greenwood DO Referring Physician Date of Admission Nov 11, 2020 at 14:45 Home Medications & Allergies Home Medications Reviewed patient Home Medication Reconciliation performed by pharmacy medication reconciliations explosive ordnance technician and/or nursing. Patients Allergies have been reviewed. Allergies Allergies Coded Allergies ketorolac (Verified Allergy, Severe, ANAPHYLAXIS, PT TAKES ASA AT HOME, 03/06/19) ondansetron (Verified Allergy, Intermediate, RASH, 03/06/19) RASH/ HIVES scopolamine (Verified Allergy, Mild, Rash, 03/21/19) exenatide (Verified Allergy, Unknown, NAUSEA, 03/06/19) NON STOP VOMITING latex (Verified Allergy, Unknown, RASH, 03/06/19) metoclopramide (Verified Allergy, Unknown, RESTLESS LEGS, 03/06/19) erythromycin base (Verified Adverse Reaction, Unknown, 03/21/19) Past Xrvoixk-Tsouav-Krewbj Hx Past Med/Social Hx: Reviewed Nursing Past Med/Soc Hx Patient Social History Alcohol Use: Denies Use Alcohol Beverage of Choice: Wine Recreational Drug Use: Yes Drug of Choice: NARCOTIC ABUSE Smoking Status: Current Everyday Smoker Type Used: Cigarettes 2nd Hand Smoke Exposure: No Recent Foreign Travel: No Contact w/other who traveled: No Recent Hopitalizations: Yes Recent Infectious Disease Expo: No Immunizations Up To Date Tetanus Booster (TDap): Unknown Pediatric: No Date of Pneumonia Vaccine: Nov 06, 2019 Date of Influenza Vaccine: Nov 22, 2019 Seasonal Allergies Seasonal Allergies: Yes Past Medical History Surgeries: Cardiac, Coronary Stent, Ear Surgery, Gallbladder, Orthopedic, Renal Respiratory: Asthma Currently Using CPAP: No Currently Using BIPAP: No Cardiac: Chronic Edema/Swelling, Coronary Artery Disease, Deep Vein Thrombosis, High Cholesterol, Hypertension, Palpitations Neurological: Headaches /Migraines, Neuropathy 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: No Sexually Transmitted Disease: No HIV/AIDS: No 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 Disorders: Denies Menopausal Genitourinary: Bladder Infection, Kidney Stones, Renal Failure Gastrointestinal: Gastroesophageal Reflux, Diverticulosis, Esophagitis, Irritable Bowel Musculoskeletal: Degenerate Disk Disease, Fibromyalgia, Chronic Back Pain Endocrine: Diabetes, Insulin dep HEENT: Cataract, Chronic Ear Infection Loss of Vision: Bilateral Hearing Impairment: Hard of Hearing Psychosocial: Anxiety Skin/Integumentary: Psoriasis History of Blood Disorders: No Adverse Reaction to Blood Green: No Family History Cancer of mouth 19 FATHER ( of esophogeal cancer.) Cardiovascular disease 19 MOTHER G8 BROTHER Completed stroke 19 FATHER G8 BROTHER Diabetes mellitus G8 BROTHER FH: lung cancer 19 MOTHER Hypertension 19 FATHER Kidney disease 19 FATHER Myocardial infarction 19 MOTHER G8 BROTHER Respiratory disorder No Family History of: AIDS CAD Over 55 Years Old, CVA, Diabetes, GI Disease, Renal Disease SOCIAL HISTORY: -ETOH--RARELY USES -DRUGS--NARCOTIC ABUSE -SMOKES 1 PPD PSH: -LINQ DEVICE PLACED 11/09/19 FOR REPORTED PALPITATIONS X 6 MONTHS, SINCE PERCOCET WAS DC'D -MULTIPLE CARDIAC CATHS--STENT X 1 TO LAD 07/13/15. LAST CATH 01/18/19--NO INTERVENTION -LUMBAR SPINE FUSION X 3--12/2002, 04/2007, AND 05/2007 -LUMBAR DISCECTOMY 10/2000--? LAMINECTOMY? -CERVICAL SPINE FUSION 11/2006 -CHOLECYSTECTOMY 1984 -BMT'S -LITHOTRIPSY AND RIGHT URETERAL STENT -EGD'S WITH ESOPHAGEAL DILATIONS -COLONOSCOPIES, LAST ONE 03/08/19 -PORT RIGHT CHEST -LEFT SHOULDER ROTATOR CUFF REPAIR 05/01/20--DR. PALACIOS -CONTINUOUS GLUCOSE MONITOR PRESENT 06/25/20--LLQ OF ABDOMEN--NOT PRESENT 10/2020 -BILATERAL CATARACT SURGERY 10/2020 Review of Systems Constitutional: malaise EENTM: no symptoms reported Respiratory: no symptoms reported Cardiovascular: no symptoms reported Gastrointestinal: nausea, vomiting Genitourinary: no symptoms reported Musculoskeletal: back pain Skin: no symptoms reported Psychiatric/Neurological: No Symptoms Reported Physical Exam Physical Exam Vital Signs Vital Signs - First Documented 11/11/20 13:45 Temp 36.6 Pulse 105 Resp 20 B/P (MAP) 192/83 (119) Pulse Ox 98 O2 Delivery Room Air Capillary Refill : Less Than 3 Seconds Height, Weight, BMI Height: 5'1.00" Weight: 122lbs. 1.0oz. [id number]; 28.00 BMI Method:Estimated General Appearance: No Apparent Distress, WD/WN HEENT: PERRL/EOMI, Pharynx Normal Neck: Normal Inspection, Supple Respiratory: Lungs Clear, Normal Breath Sounds, No Respiratory Distress Cardiovascular: No Edema, No Murmur, Tachycardia Gastrointestinal: Normal Bowel Sounds, Non Tender, Soft Extremity: Normal Inspection, Non Tender, No Pedal Edema Neurologic/Psychiatric: Alert, Oriented x3, No Motor/Sensory Deficits, Normal Mood/Affect Skin: Normal Color, Warm/Dry Results Results/Procedures Labs Laboratory Tests 11/11/20 13:49 Patient resulted labs reviewed. Imaging: Reviewed Imaging Report Assessment/Plan Admission Diagnosis Type 1 diabetes mellitus with ketoacidosis Admission Status: Inpatient Order (span 2 midnights) Reason for Inpatient Admission: DKA requiring insulin drip Assessment and Plan Type 1 diabetes mellitus with ketoacidosis Acute kidney injury Blood sugar >800 on arrival Beta hydroxybutyrate >5 pH 7.1, bicarbonate 11 with elevated anion gap Started on insulin gtt Begin DKA protocol IV fluids Admit to ICU DVT prophylaxis: Lovenox Diagnosis/Problems Diagnosis/Problems (1) Type I diabetes mellitus with ketoacidosis Status: Acute (2) Acute kidney injury superimposed on chronic kidney disease Status: Acute Clinical Quality Measures DVT/VTE Risk/Contraindication: Risk Factor Score Per Nursin RFS Level Per Nursing on Admit: 4+=Very High Smoking Cessation Counseling: Counseling-Symptomatic: 3-10 Minutes LULU BRADSHAW MD Nov 11, 2020 18:18
--- NOTE | 2020-11-11 18:26 | NUR ---
THIS NURSE NOTIFIED DR BRADSHAW OF ABG RESULTS. NO NEW ORDERS AT THIS TIME. WILL CONTINUE TO MONITOR.
[2020-11-11] MEDS: morphine INJ 4 MG/ML 1 ML (VIAL/SYRINGE) IVP PRN ×3 (18:27→22:55)
[2020-11-11 18:42] LABS: HEMOGLOBIN 10.7 g/dL (11.5-16.0); MEAN PLATELET VOLUME 10.6 fL (9.0-12.2); WHITE BLOOD COUNT 11.9 10^3/uL (4.3-11.0)
[2020-11-11 18:45] LABS: CALCIUM 8.1 MG/DL (8.5-10.1); CREATININE SERUM 1.5 MG/DL (0.60-1.30); POTASSIUM 3.6 MMOL/L (3.6-5.0)
[2020-11-11 20:53] LABS: POTASSIUM 3.9 MMOL/L (3.6-5.0)
[2020-11-11 20:54] LABS: CALCIUM 8.8 MG/DL (8.5-10.1)
[2020-11-11 20:58] LABS: CREATININE SERUM 1.29 MG/DL (0.60-1.30)
[2020-11-11] MEDS: D5 1/2 NS 1000 ML IV SOLUTION 1,000 ML IV SCH (22:56)
[2020-11-12] MEDS: 1/2 NS IV SOLUTION 1,000 ML IV SCH ×4 (00:11→11:33)
[2020-11-12] MEDS: PROMETHAZINE INJ 25 MG/ML (PHENERGAN) AMP IV PRN ×2 (00:26→06:46)
[2020-11-12] MEDS: diphenhydrAMINE 50 MG/ML INJ (BENADRYL) IV PRN ×2 (00:26→06:46)
[2020-11-12] MEDS: morphine INJ 4 MG/ML 1 ML (VIAL/SYRINGE) IVP PRN ×2 (01:18→03:45)
[2020-11-12] MEDS: POTASSIUM CL 10MEQ/50ML IVPB 50 ML IV SCH ×2 (01:28→03:44)
[2020-11-12 01:45] LABS: POTASSIUM 3.8 MMOL/L (3.6-5.0)
[2020-11-12 01:46] LABS: CALCIUM 7.8 MG/DL (8.5-10.1)
[2020-11-12 01:50] LABS: CREATININE SERUM 1.03 MG/DL (0.60-1.30); PHOSPHORUS 2.3 MG/DL (2.3-4.7)
[2020-11-12 01:52] LABS: MAGNESIUM 1.5 MG/DL (1.6-2.4)
[2020-11-12 01:53] LABS: BASOPHILS # (AUTO) 0.1 10^3/uL (0.0-0.1); BASOPHILS % (AUTO) 1 % (0-10); EOSINOPHILS # (AUTO) 0.1 10^3/uL (0.0-0.3); EOSINOPHILS % (AUTO) 1 % (0-10); HEMATOCRIT 29 % (35-52); HEMOGLOBIN 9.9 g/dL (11.5-16.0); LYMPHOCYTES # (AUTO) 3.3 10^3/uL (1.0-4.0); LYMPHOCYTES % (AUTO) 25 % (12-44); MEAN CORPUSCULAR HEMOGLOBIN 30 pg (25-34); MEAN CORPUSCULAR HGB CONC 35 g/dL (32-36); MEAN CORPUSCULAR VOLUME 87 fL (80-99); MEAN PLATELET VOLUME 10.7 fL (9.0-12.2); MONOCYTES # (AUTO) 0.5 10^3/uL (0.0-1.0); MONOCYTES % (AUTO) 4 % (0-12); NEUTROPHILS # (AUTO) 9.1 10^3/uL (1.8-7.8); NEUTROPHILS % (AUTO) 69 % (42-75); PLATELET COUNT 248 10^3/uL (130-400); WHITE BLOOD COUNT 13.2 10^3/uL (4.3-11.0)
[2020-11-12] MEDS: D5 1/2 NS 1000 ML IV SOLUTION 1,000 ML IV SCH ×2 (03:27→08:13)
[2020-11-12] MEDS: MAGNESIUM 1 GM/100 ML IVPB 100 ML IV SCH ×2 (03:44→04:46)
--- NOTE | 2020-11-12 05:44 | Pulmonary Consultation ---
History of Present Illness History of Present Illness Date Seen by Provider: Nov 12, 2020 Time Seen by Provider: 05:39 Date of Admission Allergies and Home Medications Allergies Coded Allergies: ketorolac (Verified Allergy, Severe, ANAPHYLAXIS, PT TAKES ASA AT HOME, 03/06/19) ondansetron (Verified Allergy, Intermediate, RASH, 03/06/19) RASH/ HIVES scopolamine (Verified Allergy, Mild, Rash, 03/21/19) exenatide (Verified Allergy, Unknown, NAUSEA, 03/06/19) NON STOP VOMITING latex (Verified Allergy, Unknown, RASH, 03/06/19) metoclopramide (Verified Allergy, Unknown, RESTLESS LEGS, 03/06/19) erythromycin base (Verified Adverse Reaction, Unknown, 03/21/19) Home Medications Acetaminophen 325 Mg Capsule, 650 MG PO Q6H PRN for PAIN-MILD (1-4) OR TEMPATURE, (Reported) Apixaban 5 Mg Tablet, 5 MG PO BID, (Reported) Aspirin 81 Mg Tablet.dr, 81 MG PO DAILY, (Reported) Atorvastatin Calcium 20 Mg Tablet, 20 MG PO HS, (Reported) Diphenhydramine HCl 25 Mg Tablet, 25-50 MG PO Q6H PRN for ALLERGY SYMPTOMS, (Reported) Gabapentin 800 Mg Tablet, 1,600 MG PO HS, (Reported) TAKES 2 (800MG) TABLETS Gabapentin 800 Mg Tablet, 800 MG PO DAILY, (Reported) Glucagon,Human Recombinant 1 Mg/Kit Soln, 1 MG INJ UD PRN for HYPERGLYCEMIA, (Reported) Glycerin/Propylene Glycol 1 Each Droperette, 2 DROPS OU PRN PRN for DRY EYES, (Reported) Insulin Aspart 300 Units/3 Ml Solution, UNITS SC TIDAC, (Reported) USES PER SLIDING SCALE Insulin Detemir 100 Unit/1 Ml Insuln.pen, 15 UNIT SQ BID, (Reported) Melatonin 5 Mg Tablet, 5 MG PO HS, (Reported) Omeprazole 20 Mg Capsule.dr, 20 MG PO DAILY, (Reported) Past Ppjclzs-Oxhqgw-Mgcgrs Hx Past Med/Social Hx: Reviewed Nursing Past Med/Soc Hx Patient Social History Alcohol Use: Denies Use Number of Drinks Today: Alcohol Beverage of Choice: Wine Recreational Drug Use: Yes Drug of Choice: NARCOTIC ABUSE Smoking Status: Current Everyday Smoker Type Used: Cigarettes 2nd Hand Smoke Exposure: No Recent Foreign Travel: No Contact w/Someone Who Travel: No Recent Infectious Disease Expo: No Recent Hopitalizations: Yes Physical Abuse: No Sexual Abuse: No Mistreated: No Fear: No Immunizations Up To Date Tetanus Booster (TDap): Unknown PED Vaccines UTD: No Date of Pneumonia Vaccine: Nov 06, 2019 Date of Influenza Vaccine: Nov 22, 2019 Seasonal Allergies Seasonal Allergies: Yes Past Medical History Surgeries: Yes (LITHOTRIPSY;LUMBAR SURGERY X 4;BMT'S;EGD'S WITH ESOPHAGEAL DILATIONS;) Cardiac, Coronary Stent, Ear Surgery, Gallbladder, Orthopedic, Renal Respiratory: Yes Chronic Bronchitis, Sleep Apnea Currently Using CPAP: No Currently Using BIPAP: No Cardiac: Yes (DVT'S IN ARMS; CARDIAC STENT X 1; CAROTID DISEASE;LINQ DEVICE) Chronic Edema/Swelling, Coronary Artery Disease, Deep Vein Thrombosis, High Ch olesterol, Hypertension, Palpitations Neurological: Yes (NEUROPATHY IN HANDS AND FEET) Headaches /Migraines, Neuropathy 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 Disorders: No 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 Sexually Transmitted Disease: No HIV/AIDS: No Genitourinary: Yes Bladder Infection, Kidney Stones, Renal Failure Gastrointestinal: Yes (GASTRITIS;ESOPH STRICTURE/DILATION;GASTROPARESIS-CHRONIC N/V/ABD PAIN;DAVID) Gastroesophageal Reflux, Diverticulosis, Esophagitis, Irritable Bowel Musculoskeletal: Yes (CHRONIC GENERALIZED PAIN;CHRONIC BILAT SHOULDER PAIN;CHRONIC NECK PAIN ) Degenerate Disk Disease, Fibromyalgia, Chronic Back Pain Endocrine: Yes (NON-COMPLAINT;MULTIPLE EPISODES OF DKA-EASILY CONTROLLED ON INSULIN IN HOSP) Diabetes, Insulin dep HEENT: Yes (GLASSES; S/P BMT'S;BILAT CATARACT SURGERY 10/2020) Cataract, Chronic Ear Infection Loss of Vision: Bilateral Hearing Impairment: Hard of Hearing Cancer: No Psychosocial: Yes Anxiety Integumentary: Yes Psoriasis Blood Disorders: No Adverse Reaction/Blood Tranf: No Family Medical History Cancer of mouth 19 FATHER ( of esophogeal cancer.) Cardiovascular disease 19 MOTHER G8 BROTHER Completed stroke 19 FATHER G8 BROTHER Diabetes mellitus G8 BROTHER FH: lung cancer 19 MOTHER Hypertension 19 FATHER Kidney disease 19 FATHER Myocardial infarction 19 MOTHER G8 BROTHER Respiratory disorder No Family History of: AIDS CAD Over 55 Years Old, CVA, Diabetes, GI Disease, Renal Disease SOCIAL HISTORY: -ETOH--RARELY USES -DRUGS--NARCOTIC ABUSE -SMOKES 1 PPD PSH: -LINQ DEVICE PLACED 11/09/19 FOR REPORTED PALPITATIONS X 6 MONTHS, SINCE PERCOCET WAS DC'D -MULTIPLE CARDIAC CATHS--STENT X 1 TO LAD 07/13/15. LAST CATH 01/18/19--NO INTERVENTION -LUMBAR SPINE FUSION X 3--12/2002, 04/2007, AND 05/2007 -LUMBAR DISCECTOMY 10/2000--? LAMINECTOMY? -CERVICAL SPINE FUSION 11/2006 -CHOLECYSTECTOMY 1984 -BMT'S -LITHOTRIPSY AND RIGHT URETERAL STENT -EGD'S WITH ESOPHAGEAL DILATIONS -COLONOSCOPIES, LAST ONE 03/08/19 -PORT RIGHT CHEST -LEFT SHOULDER ROTATOR CUFF REPAIR 05/01/20--DR. PALACIOS -CONTINUOUS GLUCOSE MONITOR PRESENT 06/25/20--LLQ OF ABDOMEN--NOT PRESENT 10/2020 -BILATERAL CATARACT SURGERY 10/2020 Review of Systems Time Seen by Provider: 05:45 Sepsis Event Evaluation Height, Weight, BMI Height: 5'1.00" Weight: 122lbs. 1.0oz. 55.141130uw; 28.00 BMI Method:Estimated Exam Exam Vital Signs Date Time Temp Pulse Resp B/P (MAP) Pulse Ox O2 Delivery O2 Flow Rate FiO2 11/12/20 05:00 65 161/72 (101) 96 Room Air 11/12/20 04:08 36.0 11/12/20 04:00 65 181/78 (112) 99 Room Air 11/12/20 03:00 65 162/69 (100) 97 Room Air 11/12/20 02:00 70 173/77 (109) 98 Room Air 11/12/20 01:00 77 190/93 (125) 97 Room Air 11/12/20 01:00 77 11/12/20 00:12 36.6 11/12/20 00:00 81 197/91 (126) 97 Room Air 11/11/20 23:43 36.2 11/11/20 23:00 81 182/87 (118) 98 Room Air 11/11/20 22:00 86 172/88 (116) 98 Room Air 11/11/20 21:00 87 161/78 (105) 97 Room Air 11/11/20 20:15 90 142/111 (121) 100 Room Air 11/11/20 20:00 98 Room Air 11/11/20 19:38 36.9 11/11/20 19:13 92 11/11/20 19:00 92 168/88 (114) 98 Room Air 11/11/20 18:00 106 161/83 (109) 99 11/11/20 17:17 112 11/11/20 17:00 59 14 95/62 (73) 91 Room Air 11/11/20 16:07 Room Air 11/11/20 16:00 105 184/102 (129) 100 Room Air 11/11/20 15:45 100 Room Air 11/11/20 15:30 36.4 104 24 205/100 (135) 100 Room Air 11/11/20 15:15 108 20 145/103 99 Room Air 11/11/20 13:45 36.6 105 20 192/83 (119) 98 Room Air I & O 11/12/20 07:00 Intake Total 2350 ml Output Total 2200 ml Balance 150 ml Height & Weight Height: 5'1.00" Weight: 122lbs. 1.0oz. 55.198273dm; 28.00 BMI Method:Estimated General Appearance: No Apparent Distress, WD/WN HEENT: PERRL/EOMI, Pharynx Normal Neck: Normal Inspection, Supple Respiratory: Lungs Clear, Normal Breath Sounds, No Respiratory Distress Cardiovascular: No Edema, No Murmur, Tachycardia Capillary Refill: Less Than 3 Seconds Extremity: Normal Inspection, Non Tender, No Pedal Edema Neurologic/Psychiatric: Alert, Oriented x3, No Motor/Sensory Deficits, Normal Mood/Affect Skin: Normal Color, Warm/Dry Results Lab Laboratory Tests 11/11/20 13:49 11/11/20 18:14 11/11/20 18:37 11/11/20 20:10 11/12/20 01:26 Assessment/Plan Assessment/Plan Acute DKA -Currently on insulin gtt -Repeat labs pending HTN KIM FUNEZ DO Nov 12, 2020 05:44
[2020-11-12] MEDS ORDERED: hydrALAZINE (APESOLINE) 20 MG/ML VIAL IV PRN (05:45)
[2020-11-12 05:52] LABS: CHLORIDE 111 MMOL/L (98-107); POTASSIUM 3.9 MMOL/L (3.6-5.0); SODIUM 133 MMOL/L (135-145)
[2020-11-12 05:54] LABS: CALCIUM 7.6 MG/DL (8.5-10.1); GLUCOSE 169 MG/DL (70-105)
[2020-11-12 05:55] LABS: CARBON DIOXIDE 16 MMOL/L (21-32)
[2020-11-12 05:58] LABS: CREATININE SERUM 0.85 MG/DL (0.60-1.30); GFR ESTIMATED > 60
[2020-11-12 05:59] LABS: BUN/CREATININE RATIO 24
[2020-11-12] MEDS ORDERED: KCL 20 MEQ TAB (K-DUR) PO SCH (06:00)
[2020-11-12] MEDS ORDERED: MAGNESIUM 1 GM/100 ML IVPB 100 ML IV SCH (06:00)
[2020-11-12] MEDS ORDERED: POTASSIUM CL 10MEQ/50ML IVPB 50 ML IV SCH (06:00)
--- NOTE | 2020-11-12 07:41 | Diagnostic Imaging Report ---
INDICATION: Dehydration, dyspnea, diabetic ketoacidosis. TECHNIQUE: Single view chest 2:03 AM. CORRELATION STUDY: 11/06/2020 FINDINGS: Loop recorder device over the left cardiac apex. Right IJ Cegiln-s-Ztlr catheter tip at the high right atrium. Heart size and mediastinum are unremarkable. The lungs are clear with no consolidating infiltrate. There is no significant effusion or pneumothorax. IMPRESSION: 1. Negative for acute abnormality of the chest. Dictated by: Dictated on workstation # [id number]
[2020-11-12] MEDS ORDERED: inSUlin ASPART (NovoLOG) 1 UNIT/0.01 ML (CHARGE PER UNIT) SC SCH (08:00)
[2020-11-12] MEDS: amLODIPine 5 MG (NORVASC) TAB PO SCH (08:18)
[2020-11-12] MEDS: lisINopril 10 MG (PRINIVIL) TABLET PO SCH (08:18)
[2020-11-12] MEDS: PANTOPRAZOLE 40 MG (PROTONIX) VIAL IV SCH (08:18)
[2020-11-12] MEDS: meTOprolol TARTRATE 25 MG (LOPRESSOR) TABLET PO SCH ×2 (08:18→20:18)
[2020-11-12] MEDS: APIXABAN 5 MG (ELIQUIS) TABLET PO SCH ×2 (08:29→21:05)
[2020-11-12] MEDS: inSUlin ASPART (NovoLOG) 1 UNIT/0.01 ML (CHARGE PER UNIT) SC SCH ×5 (11:00→20:18)
--- NOTE | 2020-11-12 14:27 | NUR ---
"RD ASSESSMENT PMHx: CAD; DVT; hypercholesterolemia; HTN; renal failure; GERD; diverticulosis; esophagitis; DM (hx of DKA); fibromyalgia; PT INTERACTION: Pt was awake and semi-pleasant during nutrition assessment. Pt states current appetite is okay. Note PO intake 100% x1meal, per chart review. Pt states following a diabetic diet at home, and has no issues with chewing/swallowing food. Pt states some recent issues with nausea and vomiting, and that her last BM was 11/10. Note pt not currently on bowel regimen per chart review. Pt states not sure of recent wt changes. Note recent 10# wt gain x1mon, per chart review. Pt states current DM management is good. Note pt has hx of DKA admissions, per chart review. Note recent HbA1c of 10.5 (07/25/2020), per chart review. ABNORMAL NUTRITION-RELATED LAB VALUES LOW: Na 133; Ca 7.6; HIGH: Cl 111; BUN 20; glu 169; Est. kcal needs: 1773-4458 kcal | 20-25 kcal/kg Est. Pro needs: 53-66 g Pro | 0.8-1.0 g Pro/kg PES STATEMENT: Inadequate oral intake (NI-2.1) related to loss of appetite, nausea, and vomiting, as evidenced by pt interview. INTERVENTION: Continue with current diet order of CHO 60g/m 1snack diet. Offered diet education on DM management, but pt declined, stating she had heard it all before. May attempt to offer again prior to discharge. Will continue to follow and reassess as pt needs, intake, and status change. Jonathan SANON, MS RD LD [phone] cell"
--- NOTE | 2020-11-12 16:40 | Progress Note - Hospitalist ---
Subjective HPI/CC On Admission Date Seen by Provider: Nov 12, 2020 Time Seen by Provider: 09:25 Itzel Urbano is a 60 year old female with poorly controlled insulin dependent diabetes mellitus who presented stating her blood sugar was high. She tells me that she has not been able to check her blood sugar at home because the battery in her monitor stopped working. She says she has been intermittently dosing herself with insulin. She has not been feeling well. She reports nausea and vomiting. She denies fevers and chills. She denies shortness of breath and cough. She denies chest pain. She denies abdominal pain. She denies dysuria. She denies any trouble obtaining her insulin. She reports back pain for which she has been taking "Percocet without Tylenol". Subjective/Events-last exam She is feeling better today. She has no complaints. Focused Exam Lactate Level 11/11/20 15:00: Lactic Acid Level 1.42 Objective Exam Vital Signs Vital Signs Date Time Temp Pulse Resp B/P (MAP) Pulse Ox O2 Delivery O2 Flow Rate FiO2 11/12/20 14:50 35.3 70 20 135/59 (84) 100 Room Air Capillary Refill : Less Than 3 Seconds General Appearance: No Apparent Distress, WD/WN Respiratory: Lungs Clear, Normal Breath Sounds, No Respiratory Distress Cardiovascular: Regular Rate, Rhythm, No Edema, No Murmur Gastrointestinal: Normal Bowel Sounds, Non Tender, Soft Extremity: Normal Inspection, Non Tender, No Pedal Edema Neurologic/Psychiatric: Alert, Oriented x3, No Motor/Sensory Deficits Skin: Normal Color, Warm/Dry Results/Procedures Lab Laboratory Tests 11/11/20 18:14 11/11/20 18:37 11/11/20 20:10 11/12/20 01:26 11/12/20 05:30 Patient resulted labs reviewed. Imaging: Reviewed Imaging Report Assessment/Plan Assessment and Plan Assess & Plan/Chief Complaint Type 1 diabetes mellitus with ketoacidosis DKA resolved Transition off insulin gtt Begin Levemir 20 units daily Begin Novolog 4 units with meals Begin sliding scale Transfer to medical floor HTN Continue home meds History of DVT Continue Eliquis Gastroparesis Small meals Antiemetics as needed DVT prophylaxis: Lovenox Acute kidney injury, resolved Diagnosis/Problems Diagnosis/Problems (1) Type I diabetes mellitus with ketoacidosis Status: Acute (2) Acute kidney injury superimposed on chronic kidney disease Status: Resolved Resolution Date/Time: 11/12/20 @ 16:42 Clinical Quality Measures DVT/VTE Risk/Contraindication: Risk Factor Score Per Nursin RFS Level Per Nursing on Admit: 4+=Very High Smoking Cessation Counseling: Counseling-Symptomatic: 3-10 Minutes JUAN DAVID BRADSHAW MD Nov 12, 2020 16:40
[2020-11-12] MEDS: GABAPENTIN 300 MG (NEURONTIN) CAP PO SCH (19:50)
[2020-11-13] MEDS: inSUlin ASPART (NovoLOG) 1 UNIT/0.01 ML (CHARGE PER UNIT) SC SCH ×3 (05:58→12:21)
[2020-11-13 06:18] LABS: BASOPHILS # (AUTO) 0.1 10^3/uL (0.0-0.1); BASOPHILS % (AUTO) 1 % (0-10); EOSINOPHILS # (AUTO) 0.3 10^3/uL (0.0-0.3); EOSINOPHILS % (AUTO) 3 % (0-10); HEMATOCRIT 29 % (35-52); HEMOGLOBIN 9.5 g/dL (11.5-16.0); LYMPHOCYTES % (AUTO) 37 % (12-44); MEAN CORPUSCULAR HEMOGLOBIN 30 pg (25-34); MEAN CORPUSCULAR HGB CONC 33 g/dL (32-36); MEAN CORPUSCULAR VOLUME 89 fL (80-99); MEAN PLATELET VOLUME 10.7 fL (9.0-12.2); MONOCYTES # (AUTO) 0.4 10^3/uL (0.0-1.0); MONOCYTES % (AUTO) 4 % (0-12); NEUTROPHILS # (AUTO) 6.1 10^3/uL (1.8-7.8); NEUTROPHILS % (AUTO) 56 % (42-75); PLATELET COUNT 219 10^3/uL (130-400)
[2020-11-13 06:33] LABS: POTASSIUM 4.2 MMOL/L (3.6-5.0)
[2020-11-13 06:34] LABS: CALCIUM 7.7 MG/DL (8.5-10.1)
[2020-11-13 06:38] LABS: CREATININE SERUM 1.18 MG/DL (0.60-1.30)
[2020-11-13] MEDS ORDERED: LACTATED RINGERS 1,000 ML IV SCH (07:45)
[2020-11-13] MEDS: PANTOPRAZOLE 40 MG (PROTONIX) VIAL IV SCH (08:45)
[2020-11-13] MEDS: GABAPENTIN 300 MG (NEURONTIN) CAP PO SCH (08:45)
[2020-11-13] MEDS: meTOprolol TARTRATE 25 MG (LOPRESSOR) TABLET PO SCH (08:45)
[2020-11-13] MEDS: lisINopril 10 MG (PRINIVIL) TABLET PO SCH (09:00)
[2020-11-13] MEDS: APIXABAN 5 MG (ELIQUIS) TABLET PO SCH (09:00)
[2020-11-13] MEDS: amLODIPine 5 MG (NORVASC) TAB PO SCH (09:00)
[2020-11-13] MEDS ORDERED: diphenhydrAMINE 25 MG TAB (BENADRYL) PO NR (10:54)
[2020-11-13] MEDS ORDERED: PROMETHAZINE 25 MG (PHENERGAN) TAB PO NR (10:54)
[2020-11-13] MEDS ORDERED: inSUlin ASPART (NovoLOG) 1 UNIT/0.01 ML (CHARGE PER UNIT) SC SCH (12:00)
[2020-11-13] MEDS ORDERED: OFLO5DRO3 OD (12:38)
[2020-11-13] MEDS ORDERED: BROM5DRO3 OU (12:38)
[2020-11-13] MEDS ORDERED: PREDNISOLONE OU (12:38)
[2020-11-13] MEDS ORDERED: MTP25TSR PO (12:38)
[2020-11-13] MEDS ORDERED: OXYC10TA7 PO (12:38)
[2020-11-13] MEDS ORDERED: INSU100I14 SC (13:04)
[2020-11-13] MEDS ORDERED: INSU100I29 SQ (13:04)
--- NOTE | 2020-11-13 13:51 | NUR ---
CM/SS: Visited with pt as per her reason for admission and plan for discharge. Plan: Pt is from home and will return there with no identified services. Summary: Pt reports living with her sister and brother in law and shares that she was having some issues with blood sugars and her meter did not have batteries. She since has been admitted she reports that a ER nurse gave her batteries for her meter. Pt talks about having a continuos glucose monitor, and just reports she received it the day that she came to the hospital. Pt talks about her living situation and that her sister and brother in law are not working and she is supporting them at this time. She does have her apartment at the [facility]. She is encouraged to evaluate her current living situation and determine what is best for her. She verbalizes understanding. blacksmith apprentice notified and this worker requested that she speak with pt - she does come and talk with pt about the continuos monitor. Pt reports she was denied [place] Medicaid. She states she has too much income. Pt reports she is ready to be discharged today, and that she does have a ride home. Pt is wished well.
--- NOTE | 2020-11-13 14:00 | NUR ---
request made to speak with patient re: CGM's. Patient states she has a CGM and that she is awaiting strips for her back up test meter. patient asks for test meter strips, explained to patient that she would need the type of strips her test meter uses, so I would not be able to get her the right ones from the hospital, as we only have test strips that work for our meters. Patient then states her extra strips were supposed to show up at her house today. Enc. patient to reach out to whom she lives with and have them check the mail for the test strips. CGM information packet given to patient. She was not interested in discussing it. Patient was interested to see that I had brought an Insulin Pump Information packet along with the CGM information packet and asked if she could have that information as well. given.
[2020-11-14] MEDS ORDERED: amLODIPine 10 MG (NORVASC) TAB PO SCH (09:00)
== END 2020-11-13 14:40 | disposition home or self-care (01) | DRG 638 ==
LOC: EDUNIT# 13:42 → ER 13:44 → ICU 14:45 → 4TH 11-12 14:40
PROVIDERS: ADMIT Internal Medicine; ATTEND Internal Medicine
DX: E10.10 Type 1 diabetes mellitus with ketoacidosis without coma (principal); E87.1 Hypo-osmolality and hyponatremia; N17.9 Acute kidney failure, unspecified; E86.0 Dehydration; Z91.14 Patient's other noncompliance with medication regimen; F17.210 Nicotine dependence, cigarettes, uncomplicated; I25.10 Atherosclerotic heart disease of native coronary artery without angina pectoris; E78.00 Pure hypercholesterolemia, unspecified; G89.29 Other chronic pain; M54.9 Dorsalgia, unspecified; M19.90 Unspecified osteoarthritis, unspecified site; K21.9 Gastro-esophageal reflux disease without esophagitis; M79.7 Fibromyalgia; F41.9 Anxiety disorder, unspecified; L40.9 Psoriasis, unspecified; K58.9 Irritable bowel syndrome, unspecified; G43.909 Migraine, unspecified, not intractable, without status migrainosus; N18.9 Chronic kidney disease, unspecified; I12.9 Hypertensive chronic kidney disease with stage 1 through stage 4 chronic kidney disease, or unspecified chronic kidney disease; E10.43 Type 1 diabetes mellitus with diabetic autonomic (poly)neuropathy; K31.84 Gastroparesis; Z86.718 Personal history of other venous thrombosis and embolism
CPT/HCPCS: 36415; 51702; 71045; 80048; 80053; 80306; 81000; 82010; 82150; 82805; 82962; 83036; 83605; 83690; 83735; 84100; 84145; 85007; 85025; 85027; 87040; 93041; 99291

== ENCOUNTER 2020-11-23 20:46 | Emergency (ER) | payer MEDICARE, OTHER ==
[~2020-11-23] VITALS: Ht 152 cm; Wt 63.5 kg
[~2020-11-23 20:46] MED LIST changes: +BROM5DRO3 OU; +OFLO5DRO3 OD; +PREDNISOLONE OU
[2020-11-23] MEDS ORDERED: PROMETHAZINE INJ 25 MG/ML (PHENERGAN) AMP IVP ONE (21:00)
[2020-11-23] MEDS ORDERED: diphenhydrAMINE 50 MG/ML INJ (BENADRYL) IVP ONE (21:00)
[2020-11-23] MEDS ORDERED: NS IV 1000 ML 1,000 ML IV SCH (21:00)
[2020-11-23 21:18] LABS: BASOPHILS # (AUTO) 0.1 10^3/uL (0.0-0.1); BASOPHILS % (AUTO) 1 % (0-10); EOSINOPHILS # (AUTO) 0.4 10^3/uL (0.0-0.3); EOSINOPHILS % (AUTO) 4 % (0-10); HEMATOCRIT 31 % (35-52); HEMOGLOBIN 10.1 g/dL (11.5-16.0); LYMPHOCYTES % (AUTO) 35 % (12-44); MEAN CORPUSCULAR HEMOGLOBIN 29 pg (25-34); MEAN CORPUSCULAR HGB CONC 32 g/dL (32-36); MEAN CORPUSCULAR VOLUME 91 fL (80-99); MEAN PLATELET VOLUME 9.9 fL (9.0-12.2); MONOCYTES # (AUTO) 0.5 10^3/uL (0.0-1.0); MONOCYTES % (AUTO) 4 % (0-12); NEUTROPHILS # (AUTO) 6.2 10^3/uL (1.8-7.8); NEUTROPHILS % (AUTO) 55 % (42-75); PLATELET COUNT 356 10^3/uL (130-400); WHITE BLOOD COUNT 11.3 10^3/uL (4.3-11.0)
--- NOTE | 2020-11-23 21:24 | ED GI ---
General Chief Complaint: Abdominal/GI Problems Stated Complaint: NAUSEA;VOMITING;ABD PAIN Nursing Triage Note: N/V, ABD PAIN, DIARRHEA ONSET LAST NOC. Sepsis Screen: No Definite Risk Source of Information: Patient Exam Limitations: No Limitations History of Present Illness Date Seen by Provider: Nov 23, 2020 Time Seen by Provider: 21:23 Initial Comments Nausea vomiting abdominal pain diarrhea recurred again. This time last night. She states that her blood sugar goes up even after she takes her insulin. Timing/Duration: 12-24 Hours Severity/Quality: Moderate Location: Generalized Abdomen Radiation: No Radiation Activities at Onset: None Associated Symptoms: Nausea/Vomiting Allergies and Home Medications Allergies Coded Allergies: ketorolac (Verified Allergy, Severe, ANAPHYLAXIS, PT TAKES ASA AT HOME, 03/06/19) ondansetron (Verified Allergy, Intermediate, RASH, 03/06/19) RASH/ HIVES scopolamine (Verified Allergy, Mild, Rash, 03/21/19) exenatide (Verified Allergy, Unknown, NAUSEA, 03/06/19) NON STOP VOMITING latex (Verified Allergy, Unknown, RASH, 03/06/19) metoclopramide (Verified Allergy, Unknown, RESTLESS LEGS, 03/06/19) erythromycin base (Verified Adverse Reaction, Unknown, 03/21/19) Home Medications Aspirin 81 Mg Tablet.dr, 81 MG PO DAILY, (Reported) Atorvastatin Calcium 20 Mg Tablet, 20 MG PO HS, (Reported) Bromfenac Sodium 5 Ml Drops, 1 DROP OU DAILY, (Reported) Diphenhydramine HCl 25 Mg Tablet, 25-50 MG PO Q6H PRN for ALLERGY SYMPTOMS, (Reported) Gabapentin 800 Mg Tablet, 1,600 MG PO HS, (Reported) TAKES 2 (800MG) TABLETS Gabapentin 800 Mg Tablet, 800 MG PO DAILY, (Reported) Glycerin/Propylene Glycol 1 Each Droperette, 2 DROPS OU PRN PRN for DRY EYES, (Reported) Insulin Aspart 300 Units/3 Ml Solution, 4 UNITS SC TIDAC 4 UNITS WITH MEALS PLUS SLIDING SCALE Prescribed by: JUAN DAVID BRADSHAW on 11/13/20 130 Insulin Detemir 100 Unit/1 Ml Insuln.pen, 15 UNIT SQ BID Prescribed by: JUAN DAVID BRADSHAW on 11/13/20 130 Melatonin 5 Mg Tablet, 5 MG PO HS, (Reported) Metoprolol Succinate 25 Mg Tab.er.24h, 25 MG PO DAILY, (Reported) Ofloxacin 5 Ml Drops, 1 DROP OD QID, (Reported) Omeprazole 20 Mg Capsule.dr, 20 MG PO DAILY, (Reported) Oxycodone HCl 10 Mg Tablet, 10 MG PO Q4H PRN for PAIN-SEVERE (8-10), (Reported) [Prednisolone] , 1 DROP OU BID, (Reported) Patient Home Medication List Home Medication List Reviewed: Yes Review of Systems Review of Systems Constitutional: see HPI EENTM: No Symptoms Reported Respiratory: No Symptoms Reported Cardiovascular: No Symptoms Reported Gastrointestinal: See HPI, Abdominal Pain, Nausea, Vomiting Genitourinary: No Symptoms Reported Musculoskeletal: no symptoms reported Skin: no symptoms reported Psychiatric/Neurological: No Symptoms Reported Endocrine: No Symptoms Reported Hematologic/Lymphatic: No Symptoms Reported Past Lcelnsl-Blccjc-Knsyxx Hx Patient Social History Alcohol Use: Denies Use Number of Drinks Today: Alcohol Beverage of Choice: Wine Recreational Drug Use: Yes Drug of Choice: NARCOTIC ABUSE Smoking Status: Current Everyday Smoker Type Used: Cigarettes Former Smoker, Quit: Nov 10, 2017 2nd Hand Smoke Exposure: No Recent Foreign Travel: No Contact w/Someone Who Travel: No Recent Infectious Disease Expo: No Recent Hopitalizations: Yes Physical Abuse: No Sexual Abuse: No Mistreated: No Fear: No Immunizations Up To Date Tetanus Booster (TDap): Unknown PED Vaccines UTD: No Date of Pneumonia Vaccine: Nov 06, 2019 Date of Influenza Vaccine: Nov 22, 2019 Seasonal Allergies Seasonal Allergies: Yes Past Medical History Surgeries: Yes (LITHOTRIPSY;LUMBAR SURGERY X 4;BMT'S;EGD'S WITH ESOPHAGEAL DILATIONS;) Cardiac, Coronary Stent, Ear Surgery, Gallbladder, Orthopedic, Renal Respiratory: Yes Chronic Bronchitis, Sleep Apnea Currently Using CPAP: No Currently Using BIPAP: No Cardiac: Yes (DVT'S IN ARMS; CARDIAC STENT X 1; CAROTID DISEASE;LINQ DEVICE) Chronic Edema/Swelling, Coronary Artery Disease, Deep Vein Thrombosis, High Cholesterol, Hypertension, Palpitations Neurological: Yes (NEUROPATHY IN HANDS AND FEET) Headaches /Migraines, Neuropathy 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 Disorders: No 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 Sexually Transmitted Disease: No HIV/AIDS: No Genitourinary: Yes Bladder Infection, Kidney Stones, Renal Failure Gastrointestinal: Yes (GASTRITIS;ESOPH STRICTURE/DILATION;GASTROPARESIS-CHRONIC N/V/ABD PAIN;DAVID) Gastroesophageal Reflux, Diverticulosis, Esophagitis, Irritable Bowel Musculoskeletal: Yes (CHRONIC GENERALIZED PAIN;CHRONIC BILAT SHOULDER PAIN;CHRONIC NECK PAIN ) Degenerate Disk Disease, Fibromyalgia, Chronic Back Pain Endocrine: Yes (NON-COMPLAINT;MULTIPLE EPISODES OF DKA-EASILY CONTROLLED ON INSULIN IN HOSP) Diabetes, Insulin dep HEENT: Yes (GLASSES; S/P BMT'S;BILAT CATARACT SURGERY 10/2020) Cataract, Chronic Ear Infection Loss of Vision: Bilateral Hearing Impairment: Hard of Hearing Cancer: No Psychosocial: Yes Anxiety Integumentary: Yes Psoriasis Blood Disorders: No Adverse Reaction/Blood Tranf: No Family Medical History Cancer of mouth 19 FATHER ( of esophogeal cancer.) Cardiovascular disease 19 MOTHER G8 BROTHER Completed stroke 19 FATHER G8 BROTHER Diabetes mellitus G8 BROTHER FH: lung cancer 19 MOTHER Hypertension 19 FATHER Kidney disease 19 FATHER Myocardial infarction 19 MOTHER G8 BROTHER Respiratory disorder No Family History of: AIDS CAD Over 55 Years Old, CVA, Diabetes, GI Disease, Renal Disease SOCIAL HISTORY: -ETOH--RARELY USES -DRUGS--NARCOTIC ABUSE -SMOKES 1 PPD PSH: -LINQ DEVICE PLACED 11/09/19 FOR REPORTED PALPITATIONS X 6 MONTHS, SINCE PERCOCET WAS DC'D -MULTIPLE CARDIAC CATHS--STENT X 1 TO LAD 07/13/15. LAST CATH 01/18/19--NO INTERVENTION -LUMBAR SPINE FUSION X 3--12/2002, 04/2007, AND 05/2007 -LUMBAR DISCECTOMY 10/2000--? LAMINECTOMY? -CERVICAL SPINE FUSION 11/2006 -CHOLECYSTECTOMY 1984 -BMT'S -LITHOTRIPSY AND RIGHT URETERAL STENT -EGD'S WITH ESOPHAGEAL DILATIONS -COLONOSCOPIES, LAST ONE 03/08/19 -PORT RIGHT CHEST -LEFT SHOULDER ROTATOR CUFF REPAIR 05/01/20--DR. PALACIOS -CONTINUOUS GLUCOSE MONITOR PRESENT 06/25/20--LLQ OF ABDOMEN--NOT PRESENT 10/2020 -BILATERAL CATARACT SURGERY 10/2020 Physical Exam Vital Signs Vital Signs - First Documented 11/23/20 20:49 Temp 37.0 Pulse 80 Resp 18 B/P (MAP) 146/98 (114) Pulse Ox 99 O2 Delivery Room Air Capillary Refill : Less Than 3 Seconds Height/Weight/BMI Height: 5'1.00" Weight: 122lbs. 1.0oz. 55.593749oi; 27.00 BMI Method:Estimated General Appearance: WD/WN, no apparent distress Neck: non-tender, full range of motion Respiratory: no respiratory distress, no accessory muscle use Cardiovascular: regular rate, rhythm, no murmur Gastrointestinal: normal bowel sounds, non tender, soft Extremities: normal range of motion, non-tender Neurologic/Psychiatric: alert, normal mood/affect, oriented x 3 Skin: normal color, warm/dry Procedures/Interventions Date of ETT Placement: Dec 30, 2019 Time of ETT Placement: 749 Progress/Results/Core Measures Results/Orders Lab Results Laboratory Tests Test 11/23/20 20:55 11/23/20 20:58 Range/Units Glucometer 333 H 70-110 MG/DL White Blood Count 11.3 H 4.3-11.0 10^3/uL Red Blood Count 3.45 L 3.80-5.11 10^6/uL Hemoglobin 10.1 L 11.5-16.0 g/dL Hematocrit 31 L 35-52 % Mean Corpuscular Volume 91 80-99 fL Mean Corpuscular Hemoglobin 29 25-34 pg Mean Corpuscular Hemoglobin Concent 32 32-36 g/dL Red Cell Distribution Width 13.2 10.0-14.5 % Platelet Count 356 130-400 10^3/uL Mean Platelet Volume 9.9 9.0-12.2 fL Immature Granulocyte % (Auto) 1 % Neutrophils (%) (Auto) 55 42-75 % Lymphocytes (%) (Auto) 35 12-44 % Monocytes (%) (Auto) 4 0-12 % Eosinophils (%) (Auto) 4 0-10 % Basophils (%) (Auto) 1 0-10 % Neutrophils # (Auto) 6.2 1.8-7.8 10^3/uL Lymphocytes # (Auto) 4.0 1.0-4.0 10^3/uL Monocytes # (Auto) 0.5 0.0-1.0 10^3/uL Eosinophils # (Auto) 0.4 H 0.0-0.3 10^3/uL Basophils # (Auto) 0.1 0.0-0.1 10^3/uL Immature Granulocyte # (Auto) 0.1 0.0-0.1 10^3/uL Sodium Level 134 L 135-145 MMOL/L Potassium Level 3.8 3.6-5.0 MMOL/L Chloride Level 104 98-107 MMOL/L Carbon Dioxide Level 19 L 21-32 MMOL/L Anion Gap 11 5-14 MMOL/L Blood Urea Nitrogen 18 7-18 MG/DL Creatinine 1.18 0.60-1.30 MG/DL Estimat Glomerular Filtration Rate 47 BUN/Creatinine Ratio 15 Glucose Level 361 H 70-105 MG/DL Calcium Level 8.2 L 8.5-10.1 MG/DL Corrected Calcium 8.8 8.5-10.1 MG/DL Total Bilirubin 0.2 0.1-1.0 MG/DL Aspartate Amino Transf (AST/SGOT) 9 5-34 U/L Alanine Aminotransferase (ALT/SGPT) 13 0-55 U/L Alkaline Phosphatase 89 40-136 U/L Total Protein 6.1 L 6.4-8.2 GM/DL Albumin 3.3 3.2-4.5 GM/DL Beta-Hydroxybutyrate (Chem panel) 0.06 0.00-0.27 MMOL/L My Orders Orders - JR MARIE APRN Cbc With Automated Diff (11/23/20 20:52) Beta Hydroxybutyrate (11/23/20 20:52) Comprehensive Metabolic Panel (11/23/20 20:52) Ed Iv/Invasive Line Start (11/23/20 20:52) Promethazine Injection (Phenergan Injec (11/23/20 21:00) Diphenhydramine Injection (Benadryl Inje (11/23/20 21:00) Ns Iv 1000 Ml (Sodium Chloride 0.9%) (11/23/20 21:00) Enoxaparin Injection (Lovenox Injection) (11/23/20 21:30) Hydralazine Injection (Apresoline Inject (11/23/20 21:30) Loperamide Tablet (Imodium Tablet) (11/23/20 21:45) Medications Given in ED Current Medications Medications Dose Ordered Sig/Jackie Route Start Time Stop Time Status Last Admin Dose Admin Diphenhydramine HCl 25 mg ONCE ONCE IVP 11/23/20 21:00 11/23/20 21:01 DC 11/23/20 21:14 25 MG Promethazine HCl 25 mg ONCE ONCE IVP 11/23/20 21:00 11/23/20 21:01 DC 11/23/20 21:38 25 MG Vital Signs/I&O 11/23/20 20:49 Temp 37.0 Pulse 80 Resp 18 B/P (MAP) 146/98 (114) Pulse Ox 99 O2 Delivery Room Air Blood Pressure Mean: 114 Departure Impression Primary Impression: Chronic Nausea and Vomiting Additional Impression: Uncontrolled diabetes mellitus Disposition: 01 HOME, SELF-CARE Condition: Stable Departure-Patient Inst. Decision time for Depature: 21:42 Referrals: CINDY CALABRESE DO (PCP/Family) Primary Care Physician Patient Instructions: No Instuctions Given Add. Discharge Instructions: Emergency department focuses on treating and ruling out life-threatening diseases. Whenever possible, a diagnosis is given. However, most patients are given an impression based on their history, physical exam, and workup during your brief time in the ER. Information about probable diagnosis and other educational material has been provided. Please take the time to read and understand this information. It is very important that you follow up with a physician as discussed during the visit today. Failure to adhere to your follow-up instructions may lead to severe disability, injury, or so please make sure to keep your appointments or obtain one as requested. All discharge instructions reviewed with patient and/or family. Voiced understanding. JR MARIE APRN Nov 23, 2020 21:24
[2020-11-23 21:27] LABS: ALBUMIN 3.3 GM/DL (3.2-4.5); POTASSIUM 3.8 MMOL/L (3.6-5.0)
[2020-11-23 21:28] LABS: CALCIUM 8.2 MG/DL (8.5-10.1)
[2020-11-23 21:30] LABS: TOTAL PROTEIN 6.1 GM/DL (6.4-8.2)
[2020-11-23] MEDS ORDERED: ENOXAPARIN 100 MG/1 ML (LOVENOX) SYR SC ONE (21:30)
[2020-11-23] MEDS ORDERED: hydrALAZINE (APESOLINE) 20 MG/ML VIAL IV ONE (21:30)
[2020-11-23 21:32] LABS: BILIRUBIN,TOTAL 0.2 MG/DL (0.1-1.0)
[2020-11-23 21:33] LABS: CREATININE SERUM 1.18 MG/DL (0.60-1.30)
[2020-11-23] MEDS ORDERED: LOPERAMIDE 2 MG (IMODIUM) TABLET PO ONE (21:45)
[2020-11-23 22:51] VITALS: BP 196/84
== END 2020-11-23 22:53 | disposition home or self-care (01) ==
LOC: EDUNIT# 20:46 → ER 20:48
DX: R11.2 Nausea with vomiting, unspecified (principal); E11.65 Type 2 diabetes mellitus with hyperglycemia; E78.00 Pure hypercholesterolemia, unspecified; I10 Essential (primary) hypertension; K21.9 Gastro-esophageal reflux disease without esophagitis; G89.29 Other chronic pain; M54.9 Dorsalgia, unspecified; F17.210 Nicotine dependence, cigarettes, uncomplicated; Z95.5 Presence of coronary angioplasty implant and graft; Z88.1 Allergy status to other antibiotic agents; Z91.040 Latex allergy status; Z88.8 Allergy status to other drugs, medicaments and biological substances; Z88.6 Allergy status to analgesic agent; Z82.49 Family history of ischemic heart disease and other diseases of the circulatory system; Z80.1 Family history of malignant neoplasm of trachea, bronchus and lung; Z83.3 Family history of diabetes mellitus; Z80.8 Family history of malignant neoplasm of other organs or systems; Z79.4 Long term (current) use of insulin; Z79.82 Long term (current) use of aspirin; Z79.52 Long term (current) use of systemic steroids; Z79.891 Long term (current) use of opiate analgesic
CPT/HCPCS: 36415; 80053; 82010; 82962; 85025

== ENCOUNTER 2020-12-12 14:13 | Emergency (ER) | payer MEDICARE ==
[~2020-12-12] VITALS: Ht 160 cm; Wt 81.6 kg
--- NOTE | 2020-12-12 14:20 | ED General ---
General Stated Complaint: HIGH BS Source of Information: Patient Exam Limitations: No Limitations History of Present Illness Date Seen by Provider: Dec 12, 2020 Time Seen by Provider: 14:19 Initial Comments To ER by EMS from home with reports of high blood sugar for several days. She states that insulin does not work on her unless she gets it with IV fluids. Timing/Duration: 2-3 Days Severity: Moderate Allergies and Home Medications Allergies Coded Allergies: ketorolac (Verified Allergy, Severe, ANAPHYLAXIS, PT TAKES ASA AT HOME, 03/06/19) ondansetron (Verified Allergy, Intermediate, RASH, 03/06/19) RASH/ HIVES scopolamine (Verified Allergy, Mild, Rash, 03/21/19) exenatide (Verified Allergy, Unknown, NAUSEA, 03/06/19) NON STOP VOMITING latex (Verified Allergy, Unknown, RASH, 03/06/19) metoclopramide (Verified Allergy, Unknown, RESTLESS LEGS, 03/06/19) erythromycin base (Verified Adverse Reaction, Unknown, 03/21/19) Home Medications Aspirin 81 Mg Tablet.dr, 81 MG PO DAILY, (Reported) Atorvastatin Calcium 20 Mg Tablet, 20 MG PO HS, (Reported) Bromfenac Sodium 5 Ml Drops, 1 DROP OU DAILY, (Reported) Diphenhydramine HCl 25 Mg Tablet, 25-50 MG PO Q6H PRN for ALLERGY SYMPTOMS, (Reported) Gabapentin 800 Mg Tablet, 1,600 MG PO HS, (Reported) TAKES 2 (800MG) TABLETS Gabapentin 800 Mg Tablet, 800 MG PO DAILY, (Reported) Glycerin/Propylene Glycol 1 Each Droperette, 2 DROPS OU PRN PRN for DRY EYES, (Reported) Insulin Aspart 300 Units/3 Ml Solution, 4 UNITS SC TIDAC 4 UNITS WITH MEALS PLUS SLIDING SCALE Prescribed by: JUAN DAVID BRADSHAW on 11/13/20 1304 Insulin Detemir 100 Unit/1 Ml Insuln.pen, 15 UNIT SQ BID Prescribed by: JUAN DAVID BRADSHAW on 11/13/20 1304 Melatonin 5 Mg Tablet, 5 MG PO HS, (Reported) Metoprolol Succinate 25 Mg Tab.er.24h, 25 MG PO DAILY, (Reported) Ofloxacin 5 Ml Drops, 1 DROP OD QID, (Reported) Omeprazole 20 Mg Capsule.dr, 20 MG PO DAILY, (Reported) Oxycodone HCl 10 Mg Tablet, 10 MG PO Q4H PRN for PAIN-SEVERE (8-10), (Reported) [Prednisolone] , 1 DROP OU BID, (Reported) Patient Home Medication List Home Medication List Reviewed: Yes Review of Systems Review of Systems Constitutional: see HPI EENTM: see HPI Respiratory: no symptoms reported Cardiovascular: no symptoms reported Gastrointestinal: nausea Genitourinary: no symptoms reported Musculoskeletal: no symptoms reported Skin: no symptoms reported Hematologic/Lymphatic: No Symptoms Reported Past Meqivmx-Npurha-Dibrcx Hx Patient Social History Alcohol Beverage of Choice: Wine Drug of Choice: NARCOTIC ABUSE Type Used: Cigarettes Former Smoker, Quit: Nov 10, 2017 2nd Hand Smoke Exposure: No Recent Hopitalizations: Yes Immunizations Up To Date Tetanus Booster (TDap): Unknown PED Vaccines UTD: No Date of Pneumonia Vaccine: Nov 06, 2019 Date of Influenza Vaccine: Nov 22, 2019 Seasonal Allergies Seasonal Allergies: Yes Past Medical History Surgeries: Yes (LITHOTRIPSY;LUMBAR SURGERY X 4;BMT'S;EGD'S WITH ESOPHAGEAL DILATIONS;) Cardiac, Coronary Stent, Ear Surgery, Gallbladder, Orthopedic, Renal Respiratory: Yes Chronic Bronchitis, Sleep Apnea Currently Using CPAP: No Currently Using BIPAP: No Cardiac: Yes (DVT'S IN ARMS; CARDIAC STENT X 1; CAROTID DISEASE;LINQ DEVICE) Chronic Edema/Swelling, Coronary Artery Disease, Deep Vein Thrombosis, High Cholesterol, Hypertension, Palpitations Neurological: Yes (NEUROPATHY IN HANDS AND FEET) Headaches /Migraines, Neuropathy 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 Disorders: No 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 Sexually Transmitted Disease: No HIV/AIDS: No Genitourinary: Yes Bladder Infection, Kidney Stones, Renal Failure Gastrointestinal: Yes (GASTRITIS;ESOPH STRICTURE/DILATION;GASTROPARESIS-CHRONIC N/V/ABD PAIN;DAVID) Gastroesophageal Reflux, Diverticulosis, Esophagitis, Irritable Bowel Musculoskeletal: Yes (CHRONIC GENERALIZED PAIN;CHRONIC BILAT SHOULDER PAIN;CHRONIC NECK PAIN ) Degenerate Disk Disease, Fibromyalgia, Chronic Back Pain Endocrine: Yes (NON-COMPLAINT;MULTIPLE EPISODES OF DKA-EASILY CONTROLLED ON INSULIN IN HOSP) Diabetes, Insulin dep HEENT: Yes (GLASSES; S/P BMT'S;BILAT CATARACT SURGERY 10/2020) Cataract, Chronic Ear Infection Loss of Vision: Bilateral Hearing Impairment: Hard of Hearing Cancer: No Psychosocial: Yes Anxiety Integumentary: Yes Psoriasis Blood Disorders: No Adverse Reaction/Blood Tranf: No Family Medical History Cancer of mouth 19 FATHER ( of esophogeal cancer.) Cardiovascular disease 19 MOTHER G8 BROTHER Completed stroke 19 FATHER G8 BROTHER Diabetes mellitus G8 BROTHER FH: lung cancer 19 MOTHER Hypertension 19 FATHER Kidney disease 19 FATHER Myocardial infarction 19 MOTHER G8 BROTHER Respiratory disorder No Family History of: AIDS CAD Over 55 Years Old, CVA, Diabetes, GI Disease, Renal Disease SOCIAL HISTORY: -ETOH--RARELY USES -DRUGS--NARCOTIC ABUSE -SMOKES 1 PPD PSH: -LINQ DEVICE PLACED 11/09/19 FOR REPORTED PALPITATIONS X 6 MONTHS, SINCE PERCOCET WAS DC'D -MULTIPLE CARDIAC CATHS--STENT X 1 TO LAD 07/13/15. LAST CATH 01/18/19--NO INTERVENTION -LUMBAR SPINE FUSION X 3--12/2002, 04/2007, AND 05/2007 -LUMBAR DISCECTOMY 10/2000--? LAMINECTOMY? -CERVICAL SPINE FUSION 11/2006 -CHOLECYSTECTOMY 1983 -BMT'S -LITHOTRIPSY AND RIGHT URETERAL STENT -EGD'S WITH ESOPHAGEAL DILATIONS -COLONOSCOPIES, LAST ONE 03/08/19 -PORT RIGHT CHEST -LEFT SHOULDER ROTATOR CUFF REPAIR 05/01/20--DR. PALACIOS -CONTINUOUS GLUCOSE MONITOR PRESENT 06/25/20--LLQ OF ABDOMEN--NOT PRESENT 10/2020 -BILATERAL CATARACT SURGERY 10/2020 Physical Exam Vital Signs Vital Signs - First Documented 12/12/20 15:00 Temp 37.0 Pulse 77 Resp 20 B/P (MAP) 205/131 (155) Pulse Ox 96 O2 Delivery Room Air Capillary Refill : Height, Weight, BMI Height: 5'1.00" Weight: 122lbs. 1.0oz. 55.168870oz; 27.00 BMI Method:Estimated General Appearance: No Apparent Distress, WD/WN, Chronically ill Eyes: Bilateral Eye Normal Inspection, Bilateral Eye PERRL Neck: Full Range of Motion, Normal Inspection Respiratory: Normal Breath Sounds, No Accessory Muscle Use, No Respiratory Distress Cardiovascular: Regular Rate, Rhythm, Normal Peripheral Pulses Gastrointestinal: Normal Bowel Sounds, Non Tender, Soft Extremity: Normal Capillary Refill, Normal Inspection Neurologic/Psychiatric: Alert, Oriented x3 Skin: Normal Color, Warm/Dry Procedures/Interventions Date of ETT Placement: Dec 30, 2019 Time of ETT Placement: 0750 Progress/Results/Core Measures Suspected Sepsis SIRS Temperature: Pulse: Respiratory Rate: Laboratory Tests 12/12/20 15:05: White Blood Count 8.9 Blood Pressure / Mean: Laboratory Tests 12/12/20 15:05: Creatinine 1.22, Platelet Count 240, Total Bilirubin 0.4 Results/Orders Lab Results Laboratory Tests Test 12/12/20 14:44 12/12/20 15:05 12/12/20 16:09 12/12/20 17:19 Range/Units Urine Color YELLOW Urine Clarity CLEAR Urine pH 6.5 5-9 Urine Specific [place] 1.010 L 1.016-1.022 Urine Protein 2+ H NEGATIVE Urine Glucose (UA) 3+ H NEGATIVE Urine Ketones NEGATIVE NEGATIVE Urine Nitrite POSITIVE H NEGATIVE Urine Bilirubin NEGATIVE NEGATIVE Urine Urobilinogen 0.2 < = 1.0 MG/DL Urine Leukocyte Esterase NEGATIVE NEGATIVE Urine RBC (Auto) NEGATIVE NEGATIVE Urine RBC NONE /HPF Urine WBC 2-5 /HPF Urine Crystals NONE /LPF Urine Bacteria LARGE H /HPF Urine Casts NONE /LPF Urine Mucus NEGATIVE /LPF Urine Culture Indicated YES White Blood Count 8.9 4.3-11.0 10^3/uL Red Blood Count 3.78 L 3.80-5.11 10^6/uL Hemoglobin 11.3 L 11.5-16.0 g/dL Hematocrit 33 L 35-52 % Mean Corpuscular Volume 87 80-99 fL Mean Corpuscular Hemoglobin 30 25-34 pg Mean Corpuscular Hemoglobin Concent 34 32-36 g/dL Red Cell Distribution Width 13.2 10.0-14.5 % Platelet Count 240 130-400 10^3/uL Mean Platelet Volume 10.6 9.0-12.2 fL Immature Granulocyte % (Auto) 0 % Neutrophils (%) (Auto) 72 42-75 % Lymphocytes (%) (Auto) 20 12-44 % Monocytes (%) (Auto) 3 0-12 % Eosinophils (%) (Auto) 4 0-10 % Basophils (%) (Auto) 1 0-10 % Neutrophils # (Auto) 6.5 1.8-7.8 X 10^3 Lymphocytes # (Auto) 1.8 1.0-4.0 X 10^3 Monocytes # (Auto) 0.3 0.0-1.0 X 10^3 Eosinophils # (Auto) 0.3 0.0-0.3 10^3/uL Basophils # (Auto) 0.1 0.0-0.1 10^3/uL Immature Granulocyte # (Auto) 0.0 0.0-0.1 10^3/uL Sodium Level 130 L 135-145 MMOL/L Potassium Level 4.7 3.6-5.0 MMOL/L Chloride Level 101 98-107 MMOL/L Carbon Dioxide Level 21 21-32 MMOL/L Anion Gap 8 5-14 MMOL/L Blood Urea Nitrogen 17 7-18 MG/DL Creatinine 1.22 0.60-1.30 MG/DL Estimat Glomerular Filtration Rate 45 BUN/Creatinine Ratio 14 Glucose Level 752 *H 70-105 MG/DL Calcium Level 8.4 L 8.5-10.1 MG/DL Corrected Calcium 8.8 8.5-10.1 MG/DL Total Bilirubin 0.4 0.1-1.0 MG/DL Aspartate Amino Transf (AST/SGOT) 11 5-34 U/L Alanine Aminotransferase (ALT/SGPT) 10 0-55 U/L Alkaline Phosphatase 130 40-136 U/L Total Protein 6.4 6.4-8.2 GM/DL Albumin 3.5 3.2-4.5 GM/DL Beta-Hydroxybutyrate (Chem panel) 0.75 H 0.00-0.27 MMOL/L Glucometer 419 *H 262 H 70-110 MG/DL My Orders Orders - JR MARIE HOME HEALTH 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 Cbc With Automated Diff (12/12/20 14:15) Comprehensive Metabolic Panel (12/12/20 14:15) Ua Culture If Indicated (12/12/20 14:15) Beta Hydroxybutyrate (12/12/20 14:15) Ed Iv/Invasive Line Start (12/12/20 14:15) Ns Iv 1000 Ml (Sodium Chloride 0.9%) (12/12/20 14:30) Insulin (Regular) Human (Novolin R (Per (12/12/20 14:30) Labetalol Injection (Normodyne Injection (12/12/20 14:30) Diphenhydramine Injection (Benadryl Inje (12/12/20 14:45) Promethazine Injection (Phenergan Injec (12/12/20 14:45) Diphenhydramine Injection (Benadryl Inje (12/12/20 14:41) Promethazine Injection (Phenergan Injec (12/12/20 14:41) Urine Culture (12/12/20 14:44) Ceftriaxone For Iv Use (Rocephin For I (12/12/20 15:15) Labetalol Injection (Normodyne Injection (12/12/20 15:30) Ns Iv 1000 Ml (Sodium Chloride 0.9%) (12/12/20 15:30) Insulin (Regular) Human (Novolin R (Per (12/12/20 16:30) Medications Given in ED Current Medications Medications Dose Ordered Sig/Jackie Route Start Time Stop Time Status Last Admin Dose Admin Ceftriaxone Sodium 1000 mg/ Sterile Water 10 ml @ 200 mls/hr ONCE ONCE IV 12/12/20 15:15 12/12/20 15:17 DC 12/12/20 15:43 200 MLS/HR Diphenhydramine HCl 25 mg ONCE ONCE IVP 12/12/20 14:45 12/12/20 14:46 DC 12/12/20 14:59 25 MG Insulin Human Regular 10 unit ONCE ONCE IV 12/12/20 14:30 12/12/20 14:31 DC 12/12/20 15:05 10 UNIT Labetalol HCl 10 mg ONCE ONCE IV 12/12/20 14:30 12/12/20 14:31 DC 12/12/20 15:05 10 MG Promethazine HCl 25 mg ONCE ONCE IVP 12/12/20 14:45 12/12/20 14:46 DC 12/12/20 15:00 25 MG Vital Signs/I&O 12/12/20 15:00 Temp 37.0 Pulse 77 Resp 20 B/P (MAP) 205/131 (155) Pulse Ox 96 O2 Delivery Room Air Capillary Refill : Departure Impression Primary Impression: Uncontrolled diabetes mellitus Qualified Codes: E11.65 - Type 2 diabetes mellitus with hyperglycemia Disposition: HOME, SELF-CARE Condition: Stable Departure-Patient Inst. Decision time for Depature: 15:48 Referrals: CINDY CALABRESE DO (PCP/Family) Primary Care Physician Patient Instructions: Diabetes Type 2 (DC) Add. Discharge Instructions: 1. Follow-up with your doctor this week. Return to ER for any concerns. JR MARIE APRN Dec 12, 2020 14:20
[2020-12-12] MEDS ORDERED: NS IV 1000 ML 1,000 ML IV SCH ×2 (14:30→15:30)
[2020-12-12] MEDS ORDERED: LABETALOL HCL 20 MG/4 ML VIAL IV ONE ×2 (14:30→15:30)
[2020-12-12] MEDS ORDERED: inSUlin (REGULAR) HUMAN 1 UNIT/0.01 ML (CHARGE PER UNIT) IV ONE (14:30)
[2020-12-12] MEDS ORDERED: PROMETHAZINE INJ 25 MG/ML (PHENERGAN) AMP ONE (14:41)
[2020-12-12] MEDS ORDERED: diphenhydrAMINE 50 MG/ML INJ (BENADRYL) ONE (14:41)
[2020-12-12] MEDS ORDERED: diphenhydrAMINE 50 MG/ML INJ (BENADRYL) IVP ONE (14:45)
[2020-12-12] MEDS ORDERED: PROMETHAZINE INJ 25 MG/ML (PHENERGAN) AMP IVP ONE (14:45)
[2020-12-12 14:58] LABS: BILIRUBIN,URINE NEGATIVE (NEGATIVE); CLARITY,URINE CLEAR; COLOR,URINE YELLOW; GLUCOSE, URINE (UA) 3+ (NEGATIVE); KETONES,URINE NEGATIVE (NEGATIVE); LEUKOCYTE ESTERASE ,URINE NEGATIVE (NEGATIVE); NITRITE,URINE POSITIVE (NEGATIVE); PH,URINE 6.5 (5-9); PROTEIN,URINE 2+ (NEGATIVE)
[2020-12-12 15:08] LABS: BACTERIA,URINE LARGE /HPF
[2020-12-12 15:14] LABS: BASOPHILS # (AUTO) 0.1 10^3/uL (0.0-0.1); BASOPHILS % (AUTO) 1 % (0-10); EOSINOPHILS # (AUTO) 0.3 10^3/uL (0.0-0.3); EOSINOPHILS % (AUTO) 4 % (0-10); HEMATOCRIT 33 % (35-52); HEMOGLOBIN 11.3 g/dL (11.5-16.0); LYMPHOCYTES # (AUTO) 1.8 X 10^3 (1.0-4.0); LYMPHOCYTES % (AUTO) 20 % (12-44); MEAN CORPUSCULAR HEMOGLOBIN 30 pg (25-34); MEAN CORPUSCULAR HGB CONC 34 g/dL (32-36); MEAN CORPUSCULAR VOLUME 87 fL (80-99); MEAN PLATELET VOLUME 10.6 fL (9.0-12.2); MONOCYTES # (AUTO) 0.3 X 10^3 (0.0-1.0); MONOCYTES % (AUTO) 3 % (0-12); NEUTROPHILS # (AUTO) 6.5 X 10^3 (1.8-7.8); NEUTROPHILS % (AUTO) 72 % (42-75); PLATELET COUNT 240 10^3/uL (130-400); WHITE BLOOD COUNT 8.9 10^3/uL (4.3-11.0)
[2020-12-12] MEDS ORDERED: cefTRIAXone FOR IV USE 1,000 MG in WATER (STERILE) FOR INJECTION 10 ML IV ONE (15:15)
[2020-12-12 15:28] LABS: ALBUMIN 3.5 GM/DL (3.2-4.5); POTASSIUM 4.7 MMOL/L (3.6-5.0)
[2020-12-12 15:29] LABS: CALCIUM 8.4 MG/DL (8.5-10.1)
[2020-12-12 15:31] LABS: TOTAL PROTEIN 6.4 GM/DL (6.4-8.2)
[2020-12-12 15:33] LABS: BILIRUBIN,TOTAL 0.4 MG/DL (0.1-1.0)
[2020-12-12 15:34] LABS: CREATININE SERUM 1.22 MG/DL (0.60-1.30)
[2020-12-12] MEDS ORDERED: inSUlin (REGULAR) HUMAN 1 UNIT/0.01 ML (CHARGE PER UNIT) IV SCH (16:30)
[2020-12-12 18:07] VITALS: BP 144/93
== END 2020-12-12 18:08 | disposition home or self-care (01) ==
LOC: EDUNIT# 14:13 → ER 14:15
DX: E11.65 Type 2 diabetes mellitus with hyperglycemia (principal); I10 Essential (primary) hypertension; K21.9 Gastro-esophageal reflux disease without esophagitis; E78.00 Pure hypercholesterolemia, unspecified; G89.29 Other chronic pain; M54.9 Dorsalgia, unspecified; Z91.040 Latex allergy status; Z91.041 Radiographic dye allergy status; Z88.1 Allergy status to other antibiotic agents; Z88.8 Allergy status to other drugs, medicaments and biological substances; Z88.6 Allergy status to analgesic agent; Z95.5 Presence of coronary angioplasty implant and graft; Z87.891 Personal history of nicotine dependence; Z83.3 Family history of diabetes mellitus; Z82.49 Family history of ischemic heart disease and other diseases of the circulatory system; Z80.1 Family history of malignant neoplasm of trachea, bronchus and lung; Z80.0 Family history of malignant neoplasm of digestive organs; Z79.4 Long term (current) use of insulin; Z79.82 Long term (current) use of aspirin; Z79.52 Long term (current) use of systemic steroids; Z79.891 Long term (current) use of opiate analgesic
CPT/HCPCS: 36415; 80053; 81000; 82010; 82962; 85025; 87077; 87088; 87186

== ENCOUNTER 2020-12-17 14:45 | Emergency (ER) | payer MEDICARE ==
[~2020-12-17] VITALS: Ht 152 cm; Wt 63.0 kg
--- NOTE | 2020-12-17 15:00 | ED General ---
General Stated Complaint: HIGH BLOOD SUGAR History of Present Illness Date Seen by Provider: Dec 17, 2020 Time Seen by Provider: 15:00 Initial Comments 60-year-old female presents with high blood sugar. Patient is a known uncontrolled diabetic. Her blood sugar has not been controlled for quite some time. Patient presents today because she is nauseated which she frequently presents for. She just wants to be evaluated to make sure she is not "DKA" patient has normal blood sugars run between 4-600. 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 Patient does not have any acute complaints but more chronic uncontrolled diabetic blood sugar complaints. She has some "nausea" and states that she could only take Phenergan and Benadryl together for her nausea. Patient reports that she has a known urinary tract infection and was just started on a new antibiotic yesterday. Allergies and Home Medications Allergies Coded Allergies: ketorolac (Verified Allergy, Severe, ANAPHYLAXIS, PT TAKES ASA AT HOME, 03/06/19) ondansetron (Verified Allergy, Intermediate, RASH, 03/06/19) RASH/ HIVES scopolamine (Verified Allergy, Mild, Rash, 03/21/19) exenatide (Verified Allergy, Unknown, NAUSEA, 03/06/19) NON STOP VOMITING latex (Verified Allergy, Unknown, RASH, 03/06/19) metoclopramide (Verified Allergy, Unknown, RESTLESS LEGS, 03/06/19) erythromycin base (Verified Adverse Reaction, Unknown, 03/21/19) Home Medications Aspirin 81 Mg Tablet.dr, 81 MG PO DAILY, (Reported) Atorvastatin Calcium 20 Mg Tablet, 20 MG PO HS, (Reported) Bromfenac Sodium 5 Ml Drops, 1 DROP OU DAILY, (Reported) Diphenhydramine HCl 25 Mg Tablet, 25-50 MG PO Q6H PRN for ALLERGY SYMPTOMS, (Reported) Gabapentin 800 Mg Tablet, 1,600 MG PO HS, (Reported) TAKES 2 (800MG) TABLETS Gabapentin 800 Mg Tablet, 800 MG PO DAILY, (Reported) Glycerin/Propylene Glycol 1 Each Droperette, 2 DROPS OU PRN PRN for DRY EYES, (Reported) Insulin Aspart 300 Units/3 Ml Solution, 4 UNITS SC TIDAC 4 UNITS WITH MEALS PLUS SLIDING SCALE Prescribed by: JUAN DAVID BRADSHAW on 11/13/20 1304 Insulin Detemir 100 Unit/1 Ml Insuln.pen, 15 UNIT SQ BID Prescribed by: JUAN DAVID BRADSHAW on 11/13/20 1304 Melatonin 5 Mg Tablet, 5 MG PO HS, (Reported) Metoprolol Succinate 25 Mg Tab.er.24h, 25 MG PO DAILY, (Reported) Ofloxacin 5 Ml Drops, 1 DROP OD QID, (Reported) Omeprazole 20 Mg Capsule.dr, 20 MG PO DAILY, (Reported) Oxycodone HCl 10 Mg Tablet, 10 MG PO Q4H PRN for PAIN-SEVERE (8-10), (Reported) [Prednisolone] , 1 DROP OU BID, (Reported) Patient Home Medication List Home Medication List Reviewed: Yes Review of Systems Review of Systems Constitutional: No chills, No fever; malaise EENTM: no symptoms reported Respiratory: no symptoms reported Cardiovascular: no symptoms reported Gastrointestinal: No abdominal pain; nausea Genitourinary: see HPI Past Mdlmdmk-Tuaoqr-Lkuikx Hx Past Med/Social Hx: Reviewed Nursing Past Med/Soc Hx Patient Social History Alcohol Beverage of Choice: Wine Drug of Choice: NARCOTIC ABUSE Type Used: Cigarettes Former Smoker, Quit: Nov 10, 2017 2nd Hand Smoke Exposure: No Recent Hopitalizations: Yes Immunizations Up To Date Tetanus Booster (TDap): Unknown PED Vaccines UTD: No Date of Pneumonia Vaccine: Nov 06, 2019 Date of Influenza Vaccine: Nov 22, 2019 Seasonal Allergies Seasonal Allergies: Yes Past Medical History Surgeries: Yes (LITHOTRIPSY;LUMBAR SURGERY X 4;BMT'S;EGD'S WITH ESOPHAGEAL DILATIONS;) Cardiac, Coronary Stent, Ear Surgery, Gallbladder, Orthopedic, Renal Respiratory: Yes Chronic Bronchitis, Sleep Apnea Currently Using CPAP: No Currently Using BIPAP: No Cardiac: Yes (DVT'S IN ARMS; CARDIAC STENT X 1; CAROTID DISEASE;LINQ DEVICE) Chronic Edema/Swelling, Coronary Artery Disease, Deep Vein Thrombosis, High Cholesterol, Hypertension, Palpitations Neurological: Yes (NEUROPATHY IN HANDS AND FEET) Headaches /Migraines, Neuropathy 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 Disorders: No 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 Sexually Transmitted Disease: No HIV/AIDS: No Genitourinary: Yes Bladder Infection, Kidney Stones, Renal Failure Gastrointestinal: Yes (GASTRITIS;ESOPH STRICTURE/DILATION;GASTROPARESIS-CHRONIC N/V/ABD PAIN;DAVID) Gastroesophageal Reflux, Diverticulosis, Esophagitis, Irritable Bowel Musculoskeletal: Yes (CHRONIC GENERALIZED PAIN;CHRONIC BILAT SHOULDER PAIN;CHRONIC NECK PAIN ) Degenerate Disk Disease, Fibromyalgia, Chronic Back Pain Endocrine: Yes (NON-COMPLAINT;MULTIPLE EPISODES OF DKA-EASILY CONTROLLED ON INSULIN IN HOSP) Diabetes, Insulin dep HEENT: Yes (GLASSES; S/P BMT'S;BILAT CATARACT SURGERY 10/2020) Cataract, Chronic Ear Infection Loss of Vision: Bilateral Hearing Impairment: Hard of Hearing Cancer: No Psychosocial: Yes Anxiety Integumentary: Yes Psoriasis Blood Disorders: No Adverse Reaction/Blood Tranf: No Family Medical History Cancer of mouth 19 FATHER ( of esophogeal cancer.) Cardiovascular disease 19 MOTHER G8 BROTHER Completed stroke 19 FATHER G8 BROTHER Diabetes mellitus G8 BROTHER FH: lung cancer 19 MOTHER Hypertension 19 FATHER Kidney disease 19 FATHER Myocardial infarction 19 MOTHER G8 BROTHER Respiratory disorder No Family History of: AIDS CAD Over 55 Years Old, CVA, Diabetes, GI Disease, Renal Disease SOCIAL HISTORY: -ETOH--RARELY USES -DRUGS--NARCOTIC ABUSE -SMOKES 1 PPD PSH: -LINQ DEVICE PLACED 11/09/19 FOR REPORTED PALPITATIONS X 6 MONTHS, SINCE PERCOCET WAS DC'D -MULTIPLE CARDIAC CATHS--STENT X 1 TO LAD 07/13/15. LAST CATH 01/18/19--NO INTERVENTION -LUMBAR SPINE FUSION X 3--12/2002, 04/2007, AND 05/2007 -LUMBAR DISCECTOMY 10/2000--? LAMINECTOMY? -CERVICAL SPINE FUSION 11/2006 -CHOLECYSTECTOMY 1984 -BMT'S -LITHOTRIPSY AND RIGHT URETERAL STENT -EGD'S WITH ESOPHAGEAL DILATIONS -COLONOSCOPIES, LAST ONE 03/08/19 -PORT RIGHT CHEST -LEFT SHOULDER ROTATOR CUFF REPAIR 05/01/20--DR. PALACIOS -CONTINUOUS GLUCOSE MONITOR PRESENT 06/25/20--LLQ OF ABDOMEN--NOT PRESENT 10/2020 -BILATERAL CATARACT SURGERY 10/2020 Physical Exam Vital Signs Vital Signs - First Documented 12/17/20 14:52 Temp 36.6 Pulse 75 Resp 20 B/P (MAP) 191/99 (129) Pulse Ox 95 O2 Delivery Room Air Capillary Refill : Height, Weight, BMI Height: 5'1.00" Weight: 122lbs. 1.0oz. 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 as Tested Procedures/Interventions Date of ETT Placement: Dec 30, 2019 Time of ETT Placement: 0750 Progress/Results/Core Measures Suspected Sepsis SIRS Temperature: Pulse: Respiratory Rate: Laboratory Tests 12/17/20 15:00: White Blood Count 10.2 Blood Pressure / Mean: Laboratory Tests 12/17/20 15:00: Creatinine 1.35H, Platelet Count 276, Total Bilirubin 0.3 Results/Orders Lab Results Laboratory Tests Test 12/17/20 14:56 12/17/20 15:00 12/17/20 16:28 Range/Units Glucometer 493 *H 332 H 70-110 MG/DL White Blood Count 10.2 4.3-11.0 10^3/uL Red Blood Count 4.16 3.80-5.11 10^6/uL Hemoglobin 12.3 11.5-16.0 g/dL Hematocrit 36 35-52 % Mean Corpuscular Volume 86 80-99 fL Mean Corpuscular Hemoglobin 30 25-34 pg Mean Corpuscular Hemoglobin Concent 34 32-36 g/dL Red Cell Distribution Width 13.2 10.0-14.5 % Platelet Count 276 130-400 10^3/uL Mean Platelet Volume 10.8 9.0-12.2 fL Immature Granulocyte % (Auto) 0 % Neutrophils (%) (Auto) 60 42-75 % Lymphocytes (%) (Auto) 31 12-44 % Monocytes (%) (Auto) 3 0-12 % Eosinophils (%) (Auto) 4 0-10 % Basophils (%) (Auto) 1 0-10 % Neutrophils # (Auto) 6.2 1.8-7.8 X 10^3 Lymphocytes # (Auto) 3.2 1.0-4.0 X 10^3 Monocytes # (Auto) 0.4 0.0-1.0 X 10^3 Eosinophils # (Auto) 0.4 H 0.0-0.3 10^3/uL Basophils # (Auto) 0.1 0.0-0.1 10^3/uL Immature Granulocyte # (Auto) 0.0 0.0-0.1 10^3/uL Sodium Level 129 L 135-145 MMOL/L Potassium Level 4.1 3.6-5.0 MMOL/L Chloride Level 102 98-107 MMOL/L Carbon Dioxide Level 21 21-32 MMOL/L Anion Gap 6 5-14 MMOL/L Blood Urea Nitrogen 18 7-18 MG/DL Creatinine 1.35 H 0.60-1.30 MG/DL Estimat Glomerular Filtration Rate 40 BUN/Creatinine Ratio 13 Glucose Level 579 *H 70-105 MG/DL Calcium Level 8.6 8.5-10.1 MG/DL Corrected Calcium 8.8 8.5-10.1 MG/DL Magnesium Level 1.7 1.6-2.4 MG/DL Total Bilirubin 0.3 0.1-1.0 MG/DL Aspartate Amino Transf (AST/SGOT) 17 5-34 U/L Alanine Aminotransferase (ALT/SGPT) 16 0-55 U/L Alkaline Phosphatase 128 40-136 U/L Total Protein 6.9 6.4-8.2 GM/DL Albumin 3.7 3.2-4.5 GM/DL Lipase 15 8-78 U/L My Orders Orders - CAO,JUNAID L DO Promethazine Injection (Phenergan Injec (12/17/20 15:04) Lactated Ringers (Lr 1000 Ml Iv Solution (12/17/20 15:04) Diphenhydramine Injection (Benadryl Inje (12/17/20 15:04) Cbc With Automated Diff (12/17/20 15:04) Comprehensive Metabolic Panel (12/17/20 15:04) Lipase (12/17/20 15:04) Magnesium (12/17/20 15:04) Lactated Ringers (Lr 1000 Ml Iv Solution (12/17/20 15:33) Insulin (Regular) Human (Novolin R (Per (12/17/20 15:45) Promethazine Injection (Phenergan Injec (12/17/20 16:02) Accucheck Stat ONCE (12/17/20 16:28) Insulin (Regular) Human (Novolin R (Per (12/17/20 16:45) Medications Given in ED Current Medications Medications Dose Ordered Sig/Jackie Route Start Time Stop Time Status Last Admin Dose Admin Insulin Human Regular 15 unit ONCE ONCE IV 12/17/20 15:45 12/17/20 15:46 DC 12/17/20 15:51 15 UNIT Vital Signs/I&O 12/17/20 14:52 Temp 36.6 Pulse 75 Resp 20 B/P (MAP) 191/99 (129) Pulse Ox 95 O2 Delivery Room Air Capillary Refill : Departure Impression Primary Impression: Uncontrolled insulin dependent diabetes mellitus Disposition: HOME, SELF-CARE Condition: Stable Departure-Patient Inst. Referrals: CINDY CALABRESE DO (PCP/Family) Primary Care Physician Patient Instructions: Diabetes Type 2 (DC) Add. Discharge Instructions: Increase your levemir to 20Units Bid, Novolog to 6 units TIDAC Follow up with Dr Calabrese in 1-2 days JUNAID CAO DO Dec 17, 2020 15:00
[2020-12-17] MEDS ORDERED: diphenhydrAMINE 50 MG/ML INJ (BENADRYL) IV STA (15:04)
[2020-12-17] MEDS ORDERED: PROMETHAZINE INJ 25 MG/ML (PHENERGAN) AMP IVP STA ×2 (15:04→16:02)
[2020-12-17] MEDS ORDERED: LACTATED RINGERS 1,000 ML IV STA ×2 (15:04→15:33)
[2020-12-17 15:13] LABS: BASOPHILS # (AUTO) 0.1 10^3/uL (0.0-0.1); BASOPHILS % (AUTO) 1 % (0-10); EOSINOPHILS # (AUTO) 0.4 10^3/uL (0.0-0.3); EOSINOPHILS % (AUTO) 4 % (0-10); HEMATOCRIT 36 % (35-52); HEMOGLOBIN 12.3 g/dL (11.5-16.0); LYMPHOCYTES # (AUTO) 3.2 X 10^3 (1.0-4.0); LYMPHOCYTES % (AUTO) 31 % (12-44); MEAN CORPUSCULAR HEMOGLOBIN 30 pg (25-34); MEAN CORPUSCULAR HGB CONC 34 g/dL (32-36); MEAN CORPUSCULAR VOLUME 86 fL (80-99); MEAN PLATELET VOLUME 10.8 fL (9.0-12.2); MONOCYTES # (AUTO) 0.4 X 10^3 (0.0-1.0); MONOCYTES % (AUTO) 3 % (0-12); NEUTROPHILS # (AUTO) 6.2 X 10^3 (1.8-7.8); NEUTROPHILS % (AUTO) 60 % (42-75); PLATELET COUNT 276 10^3/uL (130-400); WHITE BLOOD COUNT 10.2 10^3/uL (4.3-11.0)
[2020-12-17 15:18] LABS: ALBUMIN 3.7 GM/DL (3.2-4.5); POTASSIUM 4.1 MMOL/L (3.6-5.0)
[2020-12-17 15:19] LABS: CALCIUM 8.6 MG/DL (8.5-10.1)
[2020-12-17 15:21] LABS: TOTAL PROTEIN 6.9 GM/DL (6.4-8.2)
[2020-12-17 15:22] LABS: BILIRUBIN,TOTAL 0.3 MG/DL (0.1-1.0)
[2020-12-17 15:24] LABS: CREATININE SERUM 1.35 MG/DL (0.60-1.30)
[2020-12-17 15:27] LABS: MAGNESIUM 1.7 MG/DL (1.6-2.4)
[2020-12-17] MEDS ORDERED: inSUlin (REGULAR) HUMAN 1 UNIT/0.01 ML (CHARGE PER UNIT) IV ONE (15:45)
[2020-12-17] MEDS ORDERED: inSUlin (REGULAR) HUMAN 1 UNIT/0.01 ML (CHARGE PER UNIT) SC ONE (16:45)
[2020-12-17 17:10] VITALS: BP 191/93
== END 2020-12-17 17:10 | disposition home or self-care (01) ==
LOC: EDUNIT# 14:45 → ER 14:47
DX: E10.65 Type 1 diabetes mellitus with hyperglycemia (principal); I10 Essential (primary) hypertension; E78.00 Pure hypercholesterolemia, unspecified; K21.9 Gastro-esophageal reflux disease without esophagitis; M54.9 Dorsalgia, unspecified; G89.29 Other chronic pain; Z87.891 Personal history of nicotine dependence; Z95.5 Presence of coronary angioplasty implant and graft; Z88.1 Allergy status to other antibiotic agents; Z91.040 Latex allergy status; Z88.6 Allergy status to analgesic agent; Z88.8 Allergy status to other drugs, medicaments and biological substances; Z82.49 Family history of ischemic heart disease and other diseases of the circulatory system; Z83.3 Family history of diabetes mellitus; Z80.1 Family history of malignant neoplasm of trachea, bronchus and lung; Z80.0 Family history of malignant neoplasm of digestive organs; Z79.891 Long term (current) use of opiate analgesic; Z79.82 Long term (current) use of aspirin
CPT/HCPCS: 36415; 80053; 82962; 83690; 83735; 85025

== ENCOUNTER 2021-01-13 13:42 | Emergency (ER) | payer MEDICARE ==
[~2021-01-13] VITALS: Ht 152.4 cm; Wt 58.6 kg
[~2021-01-13 13:42] MED LIST changes: -ISOS30TA3 PO; +ISOS30TA82 PO; -LISI-552 PO; -LISI10TA2 PO; +LISI10TA25 PO; +LISI20TA26 PO; -OXYC-471 PO; +OXYC1TAB11 PO
--- NOTE | 2021-01-13 15:28 | ED Abdominal Pain ---
General Chief Complaint: Abdominal/GI Problems Stated Complaint: SOB, Nursing Triage Note: C/O N/V/D FOR OVER A WEEK AGO. DENIES FEVER OR SOA. C/O CONGESTION Sepsis Screen: No Definite Risk Source of Information: Patient Exam Limitations: No Limitations History of Present Illness Date Seen by Provider: Jan 13, 2021 Time Seen by Provider: 15:28 Initial Comments This is a 60-year-old female presents to the ER with complaints of nausea vomiting and diarrhea x1 week. Has complaints of generalized pain. States symptoms have worsened over the past couple days. Has a history of diabetes and states that her blood sugar was over 600 today. States she took 12 units of her short acting insulin this morning and her blood sugar only dropped to 530. She denies Covid exposure or ill contacts. Denies fevers chills cough shortness of breath. Allergies and Home Medications Allergies Coded Allergies: ketorolac (Verified Allergy, Severe, ANAPHYLAXIS, PT TAKES ASA AT HOME, 03/06/19) ondansetron (Verified Allergy, Intermediate, RASH, 03/06/19) RASH/ HIVES scopolamine (Verified Allergy, Mild, Rash, 03/21/19) exenatide (Verified Allergy, Unknown, NAUSEA, 03/06/19) NON STOP VOMITING latex (Verified Allergy, Unknown, RASH, 03/06/19) metoclopramide (Verified Allergy, Unknown, RESTLESS LEGS, 03/06/19) erythromycin base (Verified Adverse Reaction, Unknown, 03/21/19) Home Medications Aspirin 81 Mg Tablet.dr, 81 MG PO DAILY, (Reported) Atorvastatin Calcium 20 Mg Tablet, 20 MG PO HS, (Reported) Bromfenac Sodium 5 Ml Drops, 1 DROP OU DAILY, (Reported) Diphenhydramine HCl 25 Mg Tablet, 25-50 MG PO Q6H PRN for ALLERGY SYMPTOMS, (Reported) Gabapentin 800 Mg Tablet, 1,600 MG PO HS, (Reported) TAKES 2 (800MG) TABLETS Gabapentin 800 Mg Tablet, 800 MG PO DAILY, (Reported) Glycerin/Propylene Glycol 1 Each Droperette, 2 DROPS OU PRN PRN for DRY EYES, (Reported) Insulin Aspart 300 Units/3 Ml Solution, 4 UNITS SC TIDAC 4 UNITS WITH MEALS PLUS SLIDING SCALE Prescribed by: JUAN DAVID BRADSHAW on 11/13/20 1304 Insulin Detemir 100 Unit/1 Ml Insuln.pen, 15 UNIT SQ BID Prescribed by: JUAN DAVID BRADSHAW on 11/13/20 1304 Melatonin 5 Mg Tablet, 5 MG PO HS, (Reported) Metoprolol Succinate 25 Mg Tab.er.24h, 25 MG PO DAILY, (Reported) Ofloxacin 5 Ml Drops, 1 DROP OD QID, (Reported) Omeprazole 20 Mg Capsule.dr, 20 MG PO DAILY, (Reported) Oxycodone HCl 10 Mg Tablet, 10 MG PO Q4H PRN for PAIN-SEVERE (8-10), (Reported) Promethazine HCl 25 Mg Tablet, 25 MG PO Q6H PRN for NAUSEA/VOMITING Prescribed by: KETAN HAY on 01/13/212046 Promethazine HCl 25 Mg Supp.rect, 25 MG RC Q6H PRN for NAUSEA/VOMITING-2ND LINE Prescribed by: LATANYA HOLLINGSWORTH on 01/14/211814 [Prednisolone] , 1 DROP OU BID, (Reported) Patient Home Medication List Home Medication List Reviewed: Yes Review of Systems Review of Systems Constitutional: no symptoms reported EENTM: No Symptoms Reported Respiratory: No Symptoms Reported Cardiovascular: No Symptoms Reported Gastrointestinal: See HPI Genitourinary: No Symptoms Reported Musculoskeletal: no symptoms reported Skin: no symptoms reported Psychiatric/Neurological: No Symptoms Reported Endocrine: No Symptoms Reported Hematologic/Lymphatic: No Symptoms Reported Past Zzratsc-Gigqlv-Dzrezv Hx Patient Social History Alcohol Beverage of Choice: Wine Drug of Choice: NARCOTIC ABUSE Type Used: Cigarettes Former Smoker, Quit: Nov 10, 2017 2nd Hand Smoke Exposure: No Recent Infectious Disease Expo: No Recent Hopitalizations: Yes Immunizations Up To Date Tetanus Booster (TDap): Unknown PED Vaccines UTD: No Date of Pneumonia Vaccine: Nov 06, 2019 Date of Influenza Vaccine: Nov 22, 2019 Seasonal Allergies Seasonal Allergies: Yes Past Medical History Surgeries: Yes (LITHOTRIPSY;LUMBAR SURGERY X 4;BMT'S;EGD'S WITH ESOPHAGEAL DILATIONS;) Cardiac, Coronary Stent, Ear Surgery, Gallbladder, Orthopedic, Renal Respiratory: Yes Chronic Bronchitis, Sleep Apnea Currently Using CPAP: No Currently Using BIPAP: No Cardiac: Yes (DVT'S IN ARMS; CARDIAC STENT X 1; CAROTID DISEASE;LINQ DEVICE) Chronic Edema/Swelling, Coronary Artery Disease, Deep Vein Thrombosis, High Cholesterol, Hypertension, Palpitations Neurological: Yes (NEUROPATHY IN HANDS AND FEET) Headaches /Migraines, Neuropathy 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 Disorders: No 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 Sexually Transmitted Disease: No HIV/AIDS: No Genitourinary: Yes Bladder Infection, Kidney Stones, Renal Failure Gastrointestinal: Yes (GASTRITIS;ESOPH STRICTURE/DILATION;GASTROPARESIS-CHRONIC N/V/ABD PAIN;DAVID) Gastroesophageal Reflux, Diverticulosis, Esophagitis, Irritable Bowel Musculoskeletal: Yes (CHRONIC GENERALIZED PAIN;CHRONIC BILAT SHOULDER PAIN;CHRONIC NECK PAIN ) Degenerate Disk Disease, Fibromyalgia, Chronic Back Pain Endocrine: Yes (NON-COMPLAINT;MULTIPLE EPISODES OF DKA-EASILY CONTROLLED ON INSULIN IN HOSP) Diabetes, Insulin dep HEENT: Yes (GLASSES; S/P BMT'S;BILAT CATARACT SURGERY 10/2020) Cataract, Chronic Ear Infection Loss of Vision: Bilateral Hearing Impairment: Hard of Hearing Cancer: No Psychosocial: Yes Anxiety Integumentary: Yes Psoriasis Blood Disorders: No Adverse Reaction/Blood Tranf: No Family Medical History Cancer of mouth 19 FATHER ( of esophogeal cancer.) Cardiovascular disease 19 MOTHER G8 BROTHER Completed stroke 19 FATHER G8 BROTHER Diabetes mellitus G8 BROTHER FH: lung cancer 19 MOTHER Hypertension 19 FATHER Kidney disease 19 FATHER Myocardial infarction 19 MOTHER G8 BROTHER Respiratory disorder No Family History of: AIDS CAD Over 55 Years Old, CVA, Diabetes, GI Disease, Renal Disease SOCIAL HISTORY: -ETOH--RARELY USES -DRUGS--NARCOTIC ABUSE -SMOKES 1 PPD PSH: -LINQ DEVICE PLACED 11/09/19 FOR REPORTED PALPITATIONS X 6 MONTHS, SINCE PERCOCET WAS DC'D -MULTIPLE CARDIAC CATHS--STENT X 1 TO LAD 07/13/15. LAST CATH 01/18/19--NO INTERVENTION -LUMBAR SPINE FUSION X 3--12/2002, 04/2007, AND 05/2007 -LUMBAR DISCECTOMY 10/2000--? LAMINECTOMY? -CERVICAL SPINE FUSION 11/2006 -CHOLECYSTECTOMY 1984 -BMT'S -LITHOTRIPSY AND RIGHT URETERAL STENT -EGD'S WITH ESOPHAGEAL DILATIONS -COLONOSCOPIES, LAST ONE 03/08/19 -PORT RIGHT CHEST -LEFT SHOULDER ROTATOR CUFF REPAIR 05/01/20--DR. PALACIOS -CONTINUOUS GLUCOSE MONITOR PRESENT 06/25/20--LLQ OF ABDOMEN--NOT PRESENT 10/2020 -BILATERAL CATARACT SURGERY 10/2020 Physical Exam Vital Signs Vital Signs - First Documented 01/13/21 14:01 Temp 36.9 Pulse 90 Resp 18 B/P (MAP) 165/92 (116) Pulse Ox 97 O2 Delivery Room Air Capillary Refill : Less Than 3 Seconds Height/Weight/BMI Height: 5'1.00" Weight: 122lbs. 1.0oz. 55.375551ft; 25.00 BMI Method:Estimated General Appearance: WD/WN, no apparent distress HEENT: PERRL/EOMI, normal ENT inspection, pharynx normal Neck: full range of motion, normal inspection Respiratory: lungs clear, normal breath sounds Cardiovascular: normal peripheral pulses, regular rate, rhythm Gastrointestinal: normal bowel sounds, non tender, soft Extremities: normal range of motion, normal inspection Back: normal inspection Neurologic/Psychiatric: no motor/sensory deficits, normal mood/affect, oriented x 3 Skin: normal color, warm/dry Procedures/Interventions Date of ETT Placement: Dec 30, 2019 Time of ETT Placement: 0750 Progress/Results/Core Measures Results/Orders Lab Results Laboratory Tests Test 01/13/21 16:08 01/13/21 16:15 01/13/21 16:59 01/13/21 19:10 Range/Units White Blood Count 10.3 4.3-11.0 10^3/uL Red Blood Count 4.25 3.80-5.11 10^6/uL Hemoglobin 12.5 11.5-16.0 g/dL Hematocrit 38 35-52 % Mean Corpuscular Volume 90 80-99 fL Mean Corpuscular Hemoglobin 29 25-34 pg Mean Corpuscular Hemoglobin Concent 33 32-36 g/dL Red Cell Distribution Width 12.8 10.0-14.5 % Platelet Count 262 130-400 10^3/uL Mean Platelet Volume 10.5 9.0-12.2 fL Immature Granulocyte % (Auto) 0 % Neutrophils (%) (Auto) 75 42-75 % Lymphocytes (%) (Auto) 20 12-44 % Monocytes (%) (Auto) 3 0-12 % Eosinophils (%) (Auto) 1 0-10 % Basophils (%) (Auto) 1 0-10 % Neutrophils # (Auto) 7.7 1.8-7.8 10^3/uL Lymphocytes # (Auto) 2.1 1.0-4.0 10^3/uL Monocytes # (Auto) 0.3 0.0-1.0 10^3/uL Eosinophils # (Auto) 0.1 0.0-0.3 10^3/uL Basophils # (Auto) 0.1 0.0-0.1 10^3/uL Immature Granulocyte # (Auto) 0.0 0.0-0.1 10^3/uL Sodium Level 131 L 135-145 MMOL/L Potassium Level 4.9 3.6-5.0 MMOL/L Chloride Level 101 98-107 MMOL/L Carbon Dioxide Level 19 L 21-32 MMOL/L Anion Gap 11 5-14 MMOL/L Blood Urea Nitrogen 23 H 7-18 MG/DL Creatinine 1.48 H 0.60-1.30 MG/DL Estimat Glomerular Filtration Rate 36 BUN/Creatinine Ratio 16 Glucose Level 684 *H 70-105 MG/DL Calcium Level 8.7 8.5-10.1 MG/DL Corrected Calcium 8.9 8.5-10.1 MG/DL Total Bilirubin 0.4 0.1-1.0 MG/DL Aspartate Amino Transf (AST/SGOT) 13 5-34 U/L Alanine Aminotransferase (ALT/SGPT) 15 0-55 U/L Alkaline Phosphatase 120 40-136 U/L Total Protein 7.2 6.4-8.2 GM/DL Albumin 3.8 3.2-4.5 GM/DL Lipase 7 L 8-78 U/L Serum Test, Qualitative NEGATIVE NEGATIVE Urine Color YELLOW Urine Clarity CLEAR Urine pH 6.0 5-9 Urine Specific [place] 1.020 1.016-1.022 Urine Protein 2+ H NEGATIVE Urine Glucose (UA) 3+ H NEGATIVE Urine Ketones 1+ H NEGATIVE Urine Nitrite NEGATIVE NEGATIVE Urine Bilirubin NEGATIVE NEGATIVE Urine Urobilinogen 0.2 < = 1.0 MG/DL Urine Leukocyte Esterase NEGATIVE NEGATIVE Urine RBC (Auto) TRACE-I NEGATIVE Urine RBC 2-5 H /HPF Urine WBC NONE /HPF Urine Squamous Epithelial Cells 2-5 /HPF Urine Crystals NONE /LPF Urine Bacteria NEGATIVE /HPF Urine Casts NONE /LPF Urine Mucus NEGATIVE /LPF Urine Culture Indicated NO Blood Gas Puncture Site RIGHT RAD Blood Gas Patient Temperature 98.5 Arterial Blood pH 7.33 *L 7.37-7.43 Arterial Blood Partial Pressure CO2 37 35-45 MMHG Arterial Blood Partial Pressure O2 93 79-93 MMHG Arterial Blood HCO3 19 L 23-27 MMOL/L Arterial Blood Total CO2 20.1 L 21.0-31.0 MMOL/L Arterial Blood Oxygen Saturation 97 94-100 % Arterial Blood Base Excess -5.8 L -2.5-2.5 MMOL/L Antonio Test YES-POS Blood Gas Ventilator Setting NO Blood Gas Inspired Oxygen 0 L Glucometer 532 *H 353 H 70-110 MG/DL Test 01/13/21 19:14 01/13/21 19:52 Range/Units Urine Ketones 1+ Sodium Level 137 135-145 MMOL/L Potassium Level 3.9 3.6-5.0 MMOL/L Chloride Level 110 H 98-107 MMOL/L Carbon Dioxide Level 18 L 21-32 MMOL/L Anion Gap 9 5-14 MMOL/L Blood Urea Nitrogen 19 H 7-18 MG/DL Creatinine 1.22 0.60-1.30 MG/DL Estimat Glomerular Filtration Rate 45 BUN/Creatinine Ratio 16 Glucose Level 322 H 70-105 MG/DL Calcium Level 8.1 L 8.5-10.1 MG/DL My Orders Orders - KETAN HAY APRN Comprehensive Metabolic Panel (01/13/21 15:28) Lipase (01/13/21 15:28) Ua Culture If Indicated (01/13/21 15:28) Hcg,Qualitative Serum (01/13/21 15:28) Cbc With Automated Diff (01/13/21 15:28) Ns Iv 1000 Ml (Sodium Chloride 0.9%) (01/13/21 15:30) Promethazine Injection (Phenergan Injec (01/13/21 15:30) Fentanyl Injection (Sublimaze Injection (01/13/21 15:30) Arterial Blood Gas (01/13/21 15:31) Diphenhydramine Injection (Benadryl Inje (01/13/21 17:00) Insulin (Regular) Human (Novolin R (Per (01/13/21 17:15) Morphine Injection (Morphine Injection (01/13/21 17:11) Accucheck Q1hr Q1HR (01/13/21 18:06) Ns Iv 1000 Ml (Sodium Chloride 0.9%) (01/13/21 18:15) Promethazine Injection (Phenergan Injec (01/13/21 18:15) Basic Metabolic Panel (01/13/21 19:39) Acetone,Urine (01/13/21 19:47) Medications Given in ED Vital Signs/I&O 01/13/21 01/13/21 14:01 20:54 Temp 36.9 36.8 Pulse 90 77 Resp 18 18 B/P (MAP) 165/92 (116) 136/67 Pulse Ox 97 96 O2 Delivery Room Air Room Air Blood Pressure Mean: 116 Progress Progress Note : Progress Note Patient examined and in no acute distress. She is known to the ER and has a history of nausea vomiting and chronic pain. Reports that IV push Benadryl and Phenergan along with pain medications are required to control her symptoms. Orders placed for basic work-up, IV fluids, and ABG as blood glucose was noted to be over 600. Orders given for normal saline at 1000 ml. She was given fentanyl and morphine throughout ED course for pain management, repeated BMP at end of night and she reported she is feeling much improved. BG down to 322. Reviewed discharge plan and she is agreeable with plan. Departure Impression Primary Impression: Hyperglycemia Disposition: 01 HOME, SELF-CARE Condition: Improved Departure-Patient Inst. Decision time for Depature: 19:42 Referrals: CINDY CALABRESE DO (PCP/Family) Primary Care Physician Patient Instructions: Hyperglycemia, Adult (DC), Nausea and Vomiting, Adult Add. Discharge Instructions: Plan: 1. Discharge home. Drink plenty of fluids. 2. May take Tylenol as needed for pain per package instructions. 3. Follow up with your primary care provider if your symptoms persist. 4. Return for any new or concerning symptoms. All discharge instructions reviewed with patient and/or family. Voiced unders tanding. Scripts Promethazine HCl (Promethazine Tablet) 25 Mg Tablet 25 MG PO Q6H PRN for NAUSEA/VOMITING, #14 TAB 0 Refills Prov: KETAN HYA GRID MAKER 01/13/21 KETAN HAY GRID MAKER Jan 13, 2021 15:28
[2021-01-13] MEDS ORDERED: NS IV 1000 ML 1,000 ML IV ONE ×2 (15:30→18:15)
[2021-01-13] MEDS ORDERED: fentaNYL INJECTION 100 MCG/2 ML AMP IVP ONE (15:30)
[2021-01-13] MEDS ORDERED: PROMETHAZINE INJ 25 MG/ML (PHENERGAN) AMP IVP ONE ×2 (15:30→18:15)
[2021-01-13 16:15] LABS: BASOPHILS # (AUTO) 0.1 10^3/uL (0.0-0.1); BASOPHILS % (AUTO) 1 % (0-10); EOSINOPHILS # (AUTO) 0.1 10^3/uL (0.0-0.3); EOSINOPHILS % (AUTO) 1 % (0-10); HEMATOCRIT 38 % (35-52); HEMOGLOBIN 12.5 g/dL (11.5-16.0); LYMPHOCYTES # (AUTO) 2.1 10^3/uL (1.0-4.0); LYMPHOCYTES % (AUTO) 20 % (12-44); MEAN CORPUSCULAR HEMOGLOBIN 29 pg (25-34); MEAN CORPUSCULAR HGB CONC 33 g/dL (32-36); MEAN CORPUSCULAR VOLUME 90 fL (80-99); MEAN PLATELET VOLUME 10.5 fL (9.0-12.2); MONOCYTES # (AUTO) 0.3 10^3/uL (0.0-1.0); MONOCYTES % (AUTO) 3 % (0-12); NEUTROPHILS # (AUTO) 7.7 10^3/uL (1.8-7.8); NEUTROPHILS % (AUTO) 75 % (42-75); PLATELET COUNT 262 10^3/uL (130-400); WHITE BLOOD COUNT 10.3 10^3/uL (4.3-11.0)
[2021-01-13 16:22] LABS: BILIRUBIN,URINE NEGATIVE (NEGATIVE); CLARITY,URINE CLEAR; COLOR,URINE YELLOW; GLUCOSE, URINE (UA) 3+ (NEGATIVE); KETONES,URINE 1+ (NEGATIVE); LEUKOCYTE ESTERASE ,URINE NEGATIVE (NEGATIVE); NITRITE,URINE NEGATIVE (NEGATIVE); PROTEIN,URINE 2+ (NEGATIVE)
[2021-01-13 16:25] LABS: ALBUMIN 3.8 GM/DL (3.2-4.5); POTASSIUM 4.9 MMOL/L (3.6-5.0)
[2021-01-13 16:26] LABS: CALCIUM 8.7 MG/DL (8.5-10.1)
[2021-01-13 16:27] LABS: TOTAL PROTEIN 7.2 GM/DL (6.4-8.2)
[2021-01-13 16:29] LABS: BILIRUBIN,TOTAL 0.4 MG/DL (0.1-1.0)
[2021-01-13 16:31] LABS: BACTERIA,URINE NEGATIVE /HPF
[2021-01-13 16:31] LABS: CREATININE SERUM 1.48 MG/DL (0.60-1.30)
[2021-01-13 16:38] LABS: ABG BASE EXCESS -5.8 MMOL/L (-2.5-2.5); ABG OXYGEN SATURATION 97 % (94-100); ABG PCO2 37 MMHG (35-45); ABG PO2 93 MMHG (79-93); ABG TCO2 20.1 MMOL/L (21.0-31.0)
[2021-01-13 16:39] LABS: ABG PH 7.33 (7.37-7.43)
[2021-01-13 16:40] LABS: ALLENS TEST YES-POS; INSPIRED O2 0 L; PATIENT TEMP 98.5; VENTILATOR NO
[2021-01-13] MEDS ORDERED: diphenhydrAMINE 50 MG/ML INJ (BENADRYL) IVP ONE (17:00)
[2021-01-13] MEDS ORDERED: morphine INJ 10 MG/ML 1ML (SYR OR VIAL) IVP STA (17:11)
[2021-01-13] MEDS ORDERED: inSUlin (REGULAR) HUMAN 1 UNIT/0.01 ML (CHARGE PER UNIT) SC ONE (17:15)
[2021-01-13 20:18] LABS: CALCIUM 8.1 MG/DL (8.5-10.1); CREATININE SERUM 1.22 MG/DL (0.60-1.30); POTASSIUM 3.9 MMOL/L (3.6-5.0)
[2021-01-13] MEDS ORDERED: PROM25TA14 PO (20:47)
[2021-01-13 20:54] VITALS: BP 136/67
[2021-01-14] MEDS ORDERED: PROM25SU44 RC (18:15)
== END 2021-01-13 20:54 | disposition home or self-care (01) ==
LOC: EDUNIT# 13:42 → ER 13:44
DX: E11.65 Type 2 diabetes mellitus with hyperglycemia (principal); K21.9 Gastro-esophageal reflux disease without esophagitis; G89.29 Other chronic pain; M54.9 Dorsalgia, unspecified; E78.00 Pure hypercholesterolemia, unspecified; I10 Essential (primary) hypertension; Z88.1 Allergy status to other antibiotic agents; Z91.040 Latex allergy status; Z88.8 Allergy status to other drugs, medicaments and biological substances; Z88.6 Allergy status to analgesic agent; Z95.5 Presence of coronary angioplasty implant and graft; Z87.891 Personal history of nicotine dependence; Z82.49 Family history of ischemic heart disease and other diseases of the circulatory system; Z80.0 Family history of malignant neoplasm of digestive organs; Z80.1 Family history of malignant neoplasm of trachea, bronchus and lung; Z83.3 Family history of diabetes mellitus; Z79.4 Long term (current) use of insulin; Z79.82 Long term (current) use of aspirin; Z79.52 Long term (current) use of systemic steroids; Z79.891 Long term (current) use of opiate analgesic
CPT/HCPCS: 36415; 80048; 80053; 81000; 81002; 82805; 82962; 83690; 84703; 85025

== ENCOUNTER 2021-01-14 14:57 | Emergency (ER) | payer MEDICARE ==
[~2021-01-14] VITALS: Ht 154 cm; Wt 72.0 kg
--- NOTE | 2021-01-14 15:10 | ED GI ---
General Stated Complaint: N/V,DIARRHEA Source of Information: Patient Exam Limitations: No Limitations History of Present Illness Date Seen by Provider: Jan 14, 2021 Time Seen by Provider: 15:00 Initial Comments Patient presents ER by EMS from home with chief complaint nausea vomiting diarrhea for over a week now. She was here in the ER yesterday and says she got a cocktail of some Phenergan Benadryl and morphine which helped her significantly. She was sent home with a prescription for Phenergan which she picked up however she said she threw up the pill when she tried to take it. She has a stated allergy to Zofran. She refused to take the Phenergan suppositories because of the diarrhea. She is had no fever. Follows with Dr. Calabrese. No new pains rash cough shortness of air. Allergies and Home Medications Allergies Coded Allergies: ketorolac (Verified Allergy, Severe, ANAPHYLAXIS, PT TAKES ASA AT HOME, 03/06/19) ondansetron (Verified Allergy, Intermediate, RASH, 03/06/19) RASH/ HIVES scopolamine (Verified Allergy, Mild, Rash, 03/21/19) exenatide (Verified Allergy, Unknown, NAUSEA, 03/06/19) NON STOP VOMITING latex (Verified Allergy, Unknown, RASH, 03/06/19) metoclopramide (Verified Allergy, Unknown, RESTLESS LEGS, 03/06/19) erythromycin base (Verified Adverse Reaction, Unknown, 03/21/19) Home Medications Aspirin 81 Mg Tablet.dr, 81 MG PO DAILY, (Reported) Atorvastatin Calcium 20 Mg Tablet, 20 MG PO HS, (Reported) Bromfenac Sodium 5 Ml Drops, 1 DROP OU DAILY, (Reported) Diphenhydramine HCl 25 Mg Tablet, 25-50 MG PO Q6H PRN for ALLERGY SYMPTOMS, (Reported) Gabapentin 800 Mg Tablet, 1,600 MG PO HS, (Reported) TAKES 2 (800MG) TABLETS Gabapentin 800 Mg Tablet, 800 MG PO DAILY, (Reported) Glycerin/Propylene Glycol 1 Each Droperette, 2 DROPS OU PRN PRN for DRY EYES, (Reported) Insulin Aspart 300 Units/3 Ml Solution, 4 UNITS SC TIDAC 4 UNITS WITH MEALS PLUS SLIDING SCALE Prescribed by: JUAN DAVID BRADSHAW on 11/13/20 1304 Insulin Detemir 100 Unit/1 Ml Insuln.pen, 15 UNIT SQ BID Prescribed by: JUAN DAVID BRADSHAW on 11/13/20 1304 Melatonin 5 Mg Tablet, 5 MG PO HS, (Reported) Metoprolol Succinate 25 Mg Tab.er.24h, 25 MG PO DAILY, (Reported) Ofloxacin 5 Ml Drops, 1 DROP OD QID, (Reported) Omeprazole 20 Mg Capsule.dr, 20 MG PO DAILY, (Reported) Oxycodone HCl 10 Mg Tablet, 10 MG PO Q4H PRN for PAIN-SEVERE (8-10), (Reported) Promethazine HCl 25 Mg Tablet, 25 MG PO Q6H PRN for NAUSEA/VOMITING Prescribed by: KETAN HAY on 01/13/212046 [Prednisolone] , 1 DROP OU BID, (Reported) Patient Home Medication List Home Medication List Reviewed: Yes Review of Systems Review of Systems Constitutional: No chills, No diaphoresis EENTM: No Blurred Vision, No Double Vision Respiratory: Denies Cough, Denies Shortness of Air Cardiovascular: Denies Chest Pain, Denies Lightheadedness Gastrointestinal: Denies Constipated, Denies Diarrhea Genitourinary: Denies Burning, Denies Discharge, Denies Drainage Musculoskeletal: back pain; No joint pain (Chronic) All Other Systems Reviewed Negative Unless Noted: Yes Past Mptlglv-Oazrwm-Ymnayn Hx Patient Social History Alcohol Beverage of Choice: Wine Drug of Choice: NARCOTIC ABUSE Type Used: Cigarettes Former Smoker, Quit: Nov 10, 2017 2nd Hand Smoke Exposure: No Recent Hopitalizations: Yes Immunizations Up To Date Tetanus Booster (TDap): Unknown PED Vaccines UTD: No Date of Pneumonia Vaccine: Nov 06, 2019 Date of Influenza Vaccine: Nov 22, 2019 Seasonal Allergies Seasonal Allergies: Yes Past Medical History Surgeries: Yes (LITHOTRIPSY;LUMBAR SURGERY X 4;BMT'S;EGD'S WITH ESOPHAGEAL DILATIONS;) Cardiac, Coronary Stent, Ear Surgery, Gallbladder, Orthopedic, Renal Respiratory: Yes Chronic Bronchitis, Sleep Apnea Currently Using CPAP: No Currently Using BIPAP: No Cardiac: Yes (DVT'S IN ARMS; CARDIAC STENT X 1; CAROTID DISEASE;LINQ DEVICE) Chronic Edema/Swelling, Coronary Artery Disease, Deep Vein Thrombosis, High Cholesterol, Hypertension, Palpitations Neurological: Yes (NEUROPATHY IN HANDS AND FEET) Headaches /Migraines, Neuropathy 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 Disorders: No 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 Disorders: Denies 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 Sexually Transmitted Disease: No HIV/AIDS: No Genitourinary: Yes Bladder Infection, Kidney Stones, Renal Failure Gastrointestinal: Yes (GASTRITIS;ESOPH STRICTURE/DILATION;GASTROPARESIS-CHRONIC N/V/ABD PAIN;DAVID) Gastroesophageal Reflux, Diverticulosis, Esophagitis, Irritable Bowel Musculoskeletal: Yes (CHRONIC GENERALIZED PAIN;CHRONIC BILAT SHOULDER PAIN;CHRONIC NECK PAIN ) Degenerate Disk Disease, Fibromyalgia, Chronic Back Pain Endocrine: Yes (NON-COMPLAINT;MULTIPLE EPISODES OF DKA-EASILY CONTROLLED ON INSULIN IN HOSP) Diabetes, Insulin dep HEENT: Yes (GLASSES; S/P BMT'S;BILAT CATARACT SURGERY 10/2020) Cataract, Chronic Ear Infection Loss of Vision: Bilateral Hearing Impairment: Hard of Hearing Cancer: No Psychosocial: Yes Anxiety Integumentary: Yes Psoriasis Blood Disorders: No Adverse Reaction/Blood Tranf: No Family Medical History Cancer of mouth 19 FATHER ( of esophogeal cancer.) Cardiovascular disease 19 MOTHER G8 BROTHER Completed stroke 19 FATHER G8 BROTHER Diabetes mellitus G8 BROTHER FH: lung cancer 19 MOTHER Hypertension 19 FATHER Kidney disease 19 FATHER Myocardial infarction 19 MOTHER G8 BROTHER Respiratory disorder No Family History of: AIDS CAD Over 55 Years Old, CVA, Diabetes, GI Disease, Renal Disease SOCIAL HISTORY: -ETOH--RARELY USES -DRUGS--NARCOTIC ABUSE -SMOKES 1 PPD PSH: -LINQ DEVICE PLACED 11/09/19 FOR REPORTED PALPITATIONS X 6 MONTHS, SINCE PERCOCET WAS DC'D -MULTIPLE CARDIAC CATHS--STENT X 1 TO LAD 07/13/15. LAST CATH 01/18/19--NO INTERVENTION -LUMBAR SPINE FUSION X 3--12/2002, 04/2007, AND 05/2007 -LUMBAR DISCECTOMY 10/2000--? LAMINECTOMY? -CERVICAL SPINE FUSION 11/2006 -CHOLECYSTECTOMY 1984 -BMT'S -LITHOTRIPSY AND RIGHT URETERAL STENT -EGD'S WITH ESOPHAGEAL DILATIONS -COLONOSCOPIES, LAST ONE 03/08/19 -PORT RIGHT CHEST -LEFT SHOULDER ROTATOR CUFF REPAIR 05/01/20--DR. PALACIOS -CONTINUOUS GLUCOSE MONITOR PRESENT 06/25/20--LLQ OF ABDOMEN--NOT PRESENT 10/2020 -BILATERAL CATARACT SURGERY 10/2020 Physical Exam Vital Signs Vital Signs - First Documented 01/14/21 14:57 Temp 37.0 Pulse 91 Resp 16 B/P (MAP) 157/101 (119) Pulse Ox 98 O2 Delivery Room Air Capillary Refill : Height/Weight/BMI Height: 5'1.00" Weight: 122lbs. 1.0oz. [id number]; 25.00 BMI Method:Estimated General Appearance: WD/WN, mild distress HEENT: PERRL/EOMI, pharynx normal Neck: full range of motion, normal inspection Respiratory: lungs clear, normal breath sounds, no respiratory distress, no accessory muscle use Cardiovascular: normal peripheral pulses, regular rate, rhythm Peripheral Pulses: 2+ Radial Pulses (R), 2+ Radial Pulses (L) Gastrointestinal: normal bowel sounds, non tender, soft Extremities: normal range of motion, non-tender, normal capillary refill Back: normal inspection, no vertebral tenderness Neurologic/Psychiatric: alert, normal mood/affect, oriented x 3 Skin: normal color, warm/dry Procedures/Interventions Date of ETT Placement: Dec 30, 2019 Time of ETT Placement: 0750 Progress/Results/Core Measures Results/Orders Lab Results Laboratory Tests Test 01/14/21 15:04 01/14/21 15:06 01/14/21 15:52 01/14/21 16:27 Range/Units Glucometer 456 *H 437 *H 70-110 MG/DL White Blood Count 10.0 4.3-11.0 10^3/uL Red Blood Count 3.97 3.80-5.11 10^6/uL Hemoglobin 11.7 11.5-16.0 g/dL Hematocrit 35 35-52 % Mean Corpuscular Volume 88 80-99 fL Mean Corpuscular Hemoglobin 30 25-34 pg Mean Corpuscular Hemoglobin Concent 33 32-36 g/dL Red Cell Distribution Width 12.8 10.0-14.5 % Platelet Count 264 130-400 10^3/uL Mean Platelet Volume 10.7 9.0-12.2 fL Immature Granulocyte % (Auto) 1 % Neutrophils (%) (Auto) 67 42-75 % Lymphocytes (%) (Auto) 25 12-44 % Monocytes (%) (Auto) 4 0-12 % Eosinophils (%) (Auto) 2 0-10 % Basophils (%) (Auto) 1 0-10 % Neutrophils # (Auto) 6.7 1.8-7.8 10^3/uL Lymphocytes # (Auto) 2.5 1.0-4.0 10^3/uL Monocytes # (Auto) 0.4 0.0-1.0 10^3/uL Eosinophils # (Auto) 0.2 0.0-0.3 10^3/uL Basophils # (Auto) 0.1 0.0-0.1 10^3/uL Immature Granulocyte # (Auto) 0.1 0.0-0.1 10^3/uL Sodium Level 133 L 135-145 MMOL/L Potassium Level 4.3 3.6-5.0 MMOL/L Chloride Level 104 98-107 MMOL/L Carbon Dioxide Level 18 L 21-32 MMOL/L Anion Gap 11 5-14 MMOL/L Blood Urea Nitrogen 18 7-18 MG/DL Creatinine 1.12 0.60-1.30 MG/DL Estimat Glomerular Filtration Rate 49 BUN/Creatinine Ratio 16 Glucose Level 512 *H 70-105 MG/DL Calcium Level 8.3 L 8.5-10.1 MG/DL Corrected Calcium 8.7 8.5-10.1 MG/DL Total Bilirubin 0.3 0.1-1.0 MG/DL Aspartate Amino Transf (AST/SGOT) 14 5-34 U/L Alanine Aminotransferase (ALT/SGPT) 12 0-55 U/L Alkaline Phosphatase 103 40-136 U/L C-Reactive Protein High Sensitivity 0.05 0.00-0.50 MG/DL Total Protein 6.2 L 6.4-8.2 GM/DL Albumin 3.5 3.2-4.5 GM/DL Urine Color YELLOW Urine Clarity CLEAR Urine pH 6.5 5-9 Urine Specific [place] 1.020 1.016-1.022 Urine Protein 3+ H NEGATIVE Urine Glucose (UA) 3+ H NEGATIVE Urine Ketones 1+ H NEGATIVE Urine Nitrite NEGATIVE NEGATIVE Urine Bilirubin NEGATIVE NEGATIVE Urine Urobilinogen 0.2 < = 1.0 MG/DL Urine Leukocyte Esterase NEGATIVE NEGATIVE Urine RBC (Auto) TRACE-I NEGATIVE Urine RBC NONE /HPF Urine WBC NONE /HPF Urine Squamous Epithelial Cells 0-2 /HPF Urine Renal Epithelial Cells NONE /HPF Urine Crystals NONE /LPF Urine Bacteria NEGATIVE /HPF Urine Casts NONE /LPF Urine Mucus NEGATIVE /LPF Urine Culture Indicated NO Test 01/14/21 17:29 Range/Units Glucometer 249 H 70-110 MG/DL My Orders Orders - LATANYA HOLLINGSWORTH Ed Iv/Invasive Line Start (01/14/21 15:05) Ns Iv 1000 Ml (Sodium Chloride 0.9%) (01/14/21 15:15) Promethazine Injection (Phenergan Injec (01/14/21 15:15) Diphenhydramine Injection (Benadryl Inje (01/14/21 15:15) Cbc With Automated Diff (01/14/21 15:05) Comprehensive Metabolic Panel (01/14/21 15:05) Hs C Reactive Protein (01/14/21 15:05) Ua Culture If Indicated (01/14/21 15:05) Insulin Aspart (Novolog) (Novolog (Charg (01/14/21 15:45) Hydralazine Injection (Apresoline Inject (01/14/21 16:15) Accucheck Stat ONCE (01/14/21 16:19) Lidocaine 2% Viscous 15 Ml (Xylocaine Vi (01/14/21 16:30) Antacid Suspension (Mylanta Suspension (01/14/21 16:30) Famotidine Injection (Pepcid Injection) (01/14/21 16:19) Oxycodone Immediate Rel Tablet (Oxyir Ta (01/14/21 17:45) Oxycodone Immediate Rel Tablet (Oxyir Ta (01/14/21 18:00) Medications Given in ED Current Medications Medications Dose Ordered Sig/Jackie Route Start Time Stop Time Status Last Admin Dose Admin Al Hydrox/Mg Hydrox/Simethicone 30 ml ONCE ONCE PO 01/14/21 16:30 01/14/21 16:31 DC 01/14/21 16:28 30 ML Diphenhydramine HCl 25 mg ONCE ONCE IVP 01/14/21 15:15 01/14/21 15:16 DC 01/14/21 15:21 25 MG Hydralazine HCl 10 mg ONCE ONCE IV 01/14/21 16:15 01/14/21 16:16 DC 01/14/21 16:20 10 MG Insulin Aspart 15 unit ONCE ONCE SC 01/14/21 15:45 01/14/21 15:46 DC 01/14/21 15:47 15 UNIT Lidocaine HCl 15 ml ONCE ONCE PO 01/14/21 16:30 01/14/21 16:31 DC 01/14/21 16:28 15 ML Oxycodone HCl 5 mg ONCE ONCE PO 01/14/21 17:45 01/14/21 17:46 DC 01/14/21 17:50 5 MG Oxycodone HCl 5 mg ONCE ONCE PO 01/14/21 18:00 01/14/21 18:01 DC 01/14/21 17:57 5 MG Promethazine HCl 25 mg ONCE ONCE IVP 01/14/21 15:15 01/14/21 15:16 DC 01/14/21 15:21 25 MG Vital Signs/I&O 01/14/21 14:57 Temp 37.0 Pulse 91 Resp 16 B/P (MAP) 157/101 (119) Pulse Ox 98 O2 Delivery Room Air Progress Progress Note : Time: 18:11 Progress Note Patient presented with elevated blood sugars and ketones and dehydration. Fluids were given and she was feeling better. She had no nausea vomiting since she arrived. She claims she had one episode of diarrhea. She had an improvement of her blood sugar down to 249 and was ready to discharge home when the ER physician went to speak to her she was sitting on the side of bed and just slid over and onto the floor claiming she was not trying to get up she just rolled over the wrong way. She said this aggravated her chronic back pain and needed some oxycodone for that. We gave her a dose of 10 mg oxycodone which is her normal dose and offered imaging of her head neck and, shoulder and her right knee. After examination none of them had any significant tenderness palpation or external evidence of injury. Patient declined any further imaging and said she was ready to go home. Departure Impression Primary Impression: Hyperglycemia Additional Impression: Dehydration Disposition: 01 HOME, SELF-CARE Condition: Improved Departure-Patient Inst. Decision time for Depature: 18:13 Referrals: CINDY CALABRESE DO (PCP/Family) Primary Care Physician Patient Instructions: Dehydration, Adult (DC), Hyperglycemia, Adult (DC) Add. Discharge Instructions: Drink plenty of fluids. Phenergan 1 tablet every 6 hours or per rectal suppository every 6 hours as necessary for nausea and/or vomiting. Tylenol as necessary for pain. Continue your home medications as prescribed. Follow-up with your primary doctor for further evaluation in the next 1 to 2 weeks. Return to the ER for worsening symptoms. Scripts Promethazine HCl (Promethazine Suppository) 25 Mg Supp.rect 25 MG RC Q6H PRN for NAUSEA/VOMITING-2ND LINE, #10 SUPP.RECT 0 Refills Prov: LATANYA HOLLINGSWORTH 01/14/21 Copy Copies To 1: CINDY CALABRESE DO LATANYA HOLLINGSWORTH Jan 14, 2021 15:10
[2021-01-14] MEDS ORDERED: PROMETHAZINE INJ 25 MG/ML (PHENERGAN) AMP IVP ONE (15:15)
[2021-01-14] MEDS ORDERED: NS IV 1000 ML 1,000 ML IV SCH (15:15)
[2021-01-14] MEDS ORDERED: diphenhydrAMINE 50 MG/ML INJ (BENADRYL) IVP ONE (15:15)
[2021-01-14 15:38] LABS: BASOPHILS # (AUTO) 0.1 10^3/uL (0.0-0.1); BASOPHILS % (AUTO) 1 % (0-10); EOSINOPHILS # (AUTO) 0.2 10^3/uL (0.0-0.3); EOSINOPHILS % (AUTO) 2 % (0-10); HEMATOCRIT 35 % (35-52); HEMOGLOBIN 11.7 g/dL (11.5-16.0); LYMPHOCYTES # (AUTO) 2.5 10^3/uL (1.0-4.0); LYMPHOCYTES % (AUTO) 25 % (12-44); MEAN CORPUSCULAR HEMOGLOBIN 30 pg (25-34); MEAN CORPUSCULAR HGB CONC 33 g/dL (32-36); MEAN CORPUSCULAR VOLUME 88 fL (80-99); MEAN PLATELET VOLUME 10.7 fL (9.0-12.2); MONOCYTES # (AUTO) 0.4 10^3/uL (0.0-1.0); MONOCYTES % (AUTO) 4 % (0-12); NEUTROPHILS # (AUTO) 6.7 10^3/uL (1.8-7.8); NEUTROPHILS % (AUTO) 67 % (42-75); PLATELET COUNT 264 10^3/uL (130-400)
[2021-01-14] MEDS ORDERED: inSUlin ASPART (NovoLOG) 1 UNIT/0.01 ML (CHARGE PER UNIT) SC ONE (15:45)
[2021-01-14 15:47] LABS: ALBUMIN 3.5 GM/DL (3.2-4.5); POTASSIUM 4.3 MMOL/L (3.6-5.0)
[2021-01-14 15:48] LABS: CALCIUM 8.3 MG/DL (8.5-10.1)
[2021-01-14 15:50] LABS: TOTAL PROTEIN 6.2 GM/DL (6.4-8.2)
[2021-01-14 15:52] LABS: BILIRUBIN,TOTAL 0.3 MG/DL (0.1-1.0)
[2021-01-14 15:53] LABS: CREATININE SERUM 1.12 MG/DL (0.60-1.30)
[2021-01-14 16:00] LABS: BILIRUBIN,URINE NEGATIVE (NEGATIVE); CLARITY,URINE CLEAR; COLOR,URINE YELLOW; GLUCOSE, URINE (UA) 3+ (NEGATIVE); KETONES,URINE 1+ (NEGATIVE); LEUKOCYTE ESTERASE ,URINE NEGATIVE (NEGATIVE); NITRITE,URINE NEGATIVE (NEGATIVE); PH,URINE 6.5 (5-9); PROTEIN,URINE 3+ (NEGATIVE)
[2021-01-14 16:08] LABS: BACTERIA,URINE NEGATIVE /HPF; SQUAMOUS EPITHELIAL CELL,UR 0-2 /HPF
[2021-01-14] MEDS ORDERED: hydrALAZINE (APESOLINE) 20 MG/ML VIAL IV ONE (16:15)
[2021-01-14] MEDS ORDERED: FAMOTIDINE 20MG/2ML IV (PEPCID) IV STA (16:19)
[2021-01-14] MEDS ORDERED: ANTACID SUSP 30 ML UDC (MYLANTA) PO ONE (16:30)
[2021-01-14] MEDS ORDERED: LIDOCAINE 2% VISCOUS 15 ML UDC PO ONE (16:30)
[2021-01-14] MEDS ORDERED: PROM25SU44 RC (18:15)
[2021-01-14 18:24] VITALS: BP 189/90
== END 2021-01-14 18:24 | disposition home or self-care (01) ==
LOC: EDUNIT# 14:57 → ER 14:58
DX: E11.65 Type 2 diabetes mellitus with hyperglycemia (principal); E86.0 Dehydration; E78.00 Pure hypercholesterolemia, unspecified; I10 Essential (primary) hypertension; G89.29 Other chronic pain; M54.9 Dorsalgia, unspecified; K21.9 Gastro-esophageal reflux disease without esophagitis; Z88.6 Allergy status to analgesic agent; Z91.040 Latex allergy status; Z88.1 Allergy status to other antibiotic agents; Z88.8 Allergy status to other drugs, medicaments and biological substances; Z87.891 Personal history of nicotine dependence; Z95.5 Presence of coronary angioplasty implant and graft; Z82.49 Family history of ischemic heart disease and other diseases of the circulatory system; Z80.0 Family history of malignant neoplasm of digestive organs; Z80.1 Family history of malignant neoplasm of trachea, bronchus and lung; Z83.3 Family history of diabetes mellitus; Z79.4 Long term (current) use of insulin; Z79.52 Long term (current) use of systemic steroids; Z79.82 Long term (current) use of aspirin; Z79.891 Long term (current) use of opiate analgesic
CPT/HCPCS: 36415; 80053; 81000; 82962; 85025; 86141

== ENCOUNTER 2021-01-16 04:56 | Inpatient (IN) | payer MEDICARE ==
[~2021-01-16] VITALS: Ht 157.4 cm; Wt 62.7 kg
[2021-01-16 05:12] LABS: BASOPHILS # (AUTO) 0.1 10^3/uL (0.0-0.1); BASOPHILS % (AUTO) 0 % (0-10); EOSINOPHILS % (AUTO) 0 % (0-10); HEMATOCRIT 37 % (35-52); HEMOGLOBIN 12.5 g/dL (11.5-16.0); LYMPHOCYTES # (AUTO) 1.3 10^3/uL (1.0-4.0); LYMPHOCYTES % (AUTO) 8 % (12-44); MEAN CORPUSCULAR HEMOGLOBIN 29 pg (25-34); MEAN CORPUSCULAR HGB CONC 34 g/dL (32-36); MEAN CORPUSCULAR VOLUME 86 fL (80-99); MEAN PLATELET VOLUME 10.5 fL (9.0-12.2); MONOCYTES # (AUTO) 0.4 10^3/uL (0.0-1.0); MONOCYTES % (AUTO) 2 % (0-12); NEUTROPHILS # (AUTO) 14.9 10^3/uL (1.8-7.8); NEUTROPHILS % (AUTO) 89 % (42-75); PLATELET COUNT 295 10^3/uL (130-400); WHITE BLOOD COUNT 16.7 10^3/uL (4.3-11.0)
[2021-01-16] MEDS ORDERED: FAMOTIDINE 20MG/2ML IV (PEPCID) IVP ONE (05:15)
[2021-01-16] MEDS ORDERED: inSUlin (REGULAR) HUMAN 1 UNIT/0.01 ML (CHARGE PER UNIT) IV ONE ×2 (05:15→05:45)
[2021-01-16] MEDS ORDERED: PROMETHAZINE INJ 25 MG/ML (PHENERGAN) AMP IVP ONE (05:15)
[2021-01-16] MEDS ORDERED: NS IV 1000 ML 1,000 ML IV SCH ×3 (05:15→07:30)
[2021-01-16 05:27] LABS: ALBUMIN 3.9 GM/DL (3.2-4.5); BAND NEUTROPHILS 0 %; BASOPHILS % (MANUAL) 0 %; ELLIPT/OVALOCYTES SLIGHT; EOSINOPHILS % (MANUAL) 0 %; LYMPHOCYTES % (MANUAL) 8 %; MONOCYTES % (MANUAL) 0 %; NEUTROPHILS % (MANUAL) 92 %; POIKILOCYTOSIS SLIGHT; POTASSIUM 3.5 MMOL/L (3.6-5.0)
[2021-01-16 05:28] LABS: CALCIUM 8.7 MG/DL (8.5-10.1)
[2021-01-16 05:30] LABS: TOTAL PROTEIN 7.3 GM/DL (6.4-8.2)
[2021-01-16 05:31] LABS: CLARITY,URINE SL CLOUDY; COLOR,URINE YELLOW; GLUCOSE, URINE (UA) 3+ (NEGATIVE); KETONES,URINE 3+ (NEGATIVE); LEUKOCYTE ESTERASE ,URINE NEGATIVE (NEGATIVE); NITRITE,URINE NEGATIVE (NEGATIVE); PROTEIN,URINE 3+ (NEGATIVE)
[2021-01-16 05:31] LABS: BILIRUBIN,TOTAL 0.6 MG/DL (0.1-1.0)
[2021-01-16 05:33] LABS: CREATININE SERUM 1.71 MG/DL (0.60-1.30)
[2021-01-16 05:36] LABS: MAGNESIUM 1.9 MG/DL (1.6-2.4)
[2021-01-16 05:40] LABS: BACTERIA,URINE TRACE /HPF; BILIRUBIN,URINE 1+ (NEGATIVE); WBC,URINE RARE /HPF
[2021-01-16 05:41] LABS: AMORPHOUS SEDIMENT,UR FEW AMOR URATES /LPF
--- NOTE | 2021-01-16 06:00 | ED General ---
General Chief Complaint: Glucose Problems Stated Complaint: DKA Nursing Triage Note: C/O "DKA" STATES SHE IS HAVING NAUSEA AND VOMITING AT HOME. ARRIVES VIA EMS TO ROOM 6. ALERT AND ORIENTED X4, CALL LIGHT IN REACH MONITORING MAINTAINED. Nursing Sepsis Screen: No Definite Risk Source of Information: Patient Exam Limitations: No Limitations History of Present Illness Date Seen by Provider: Jan 16, 2021 Time Seen by Provider: 04:57 Initial Comments This 60-year-old woman presents to the emergency room with nausea, vomiting, and extremely high blood sugars. This is her third visit to the ER in the last 4 days. She has extensive history of diabetic ketoacidosis. She reports compliance with her blood sugars and insulin. She appears weak and ill. She is afebrile. Allergies and Home Medications Allergies Coded Allergies: ketorolac (Verified Allergy, Severe, ANAPHYLAXIS, PT TAKES ASA AT HOME, 03/06/19) ondansetron (Verified Allergy, Intermediate, RASH, 03/06/19) RASH/ HIVES scopolamine (Verified Allergy, Mild, Rash, 03/21/19) exenatide (Verified Allergy, Unknown, NAUSEA, 03/06/19) NON STOP VOMITING latex (Verified Allergy, Unknown, RASH, 03/06/19) metoclopramide (Verified Allergy, Unknown, RESTLESS LEGS, 03/06/19) erythromycin base (Verified Adverse Reaction, Unknown, 03/21/19) Home Medications Aspirin 81 Mg Tablet.dr, 81 MG PO DAILY, (Reported) Atorvastatin Calcium 20 Mg Tablet, 20 MG PO HS, (Reported) Bromfenac Sodium 5 Ml Drops, 1 DROP OU DAILY, (Reported) Diphenhydramine HCl 25 Mg Tablet, 25-50 MG PO Q6H PRN for ALLERGY SYMPTOMS, (Reported) Gabapentin 800 Mg Tablet, 1,600 MG PO HS, (Reported) TAKES 2 (800MG) TABLETS Gabapentin 800 Mg Tablet, 800 MG PO DAILY, (Reported) Glycerin/Propylene Glycol 1 Each Droperette, 2 DROPS OU PRN PRN for DRY EYES, (Reported) Insulin Aspart 300 Units/3 Ml Solution, 4 UNITS SC TIDAC 4 UNITS WITH MEALS PLUS SLIDING SCALE Prescribed by: JUAN DAVID BRADSHAW on 11/13/20 1304 Insulin Detemir 100 Unit/1 Ml Insuln.pen, 15 UNIT SQ BID Prescribed by: JUAN DAVID BRADSHAW on 11/13/20 1304 Melatonin 5 Mg Tablet, 5 MG PO HS, (Reported) Metoprolol Succinate 25 Mg Tab.er.24h, 25 MG PO DAILY, (Reported) Ofloxacin 5 Ml Drops, 1 DROP OD QID, (Reported) Omeprazole 20 Mg Capsule.dr, 20 MG PO DAILY, (Reported) Oxycodone HCl 10 Mg Tablet, 10 MG PO Q4H PRN for PAIN-SEVERE (8-10), (Reported) Promethazine HCl 25 Mg Tablet, 25 MG PO Q6H PRN for NAUSEA/VOMITING Prescribed by: KETAN HAY on 01/13/212046 Promethazine HCl 25 Mg Supp.rect, 25 MG RC Q6H PRN for NAUSEA/VOMITING-2ND LINE Prescribed by: LATANYA HOLLINGSWORTH on 01/14/211814 [Prednisolone] , 1 DROP OU BID, (Reported) Patient Home Medication List Home Medication List Reviewed: Yes Review of Systems Review of Systems Constitutional: see HPI EENTM: no symptoms reported Respiratory: no symptoms reported Cardiovascular: no symptoms reported Gastrointestinal: see HPI Genitourinary: no symptoms reported : No Musculoskeletal: no symptoms reported Skin: no symptoms reported Psychiatric/Neurological: No Symptoms Reported Hematologic/Lymphatic: No Symptoms Reported Immunological/Allergic: no symptoms reported Past Pbhmlqg-Cbfkuj-Iodqdo Hx Past Med/Social Hx: Reviewed Nursing Past Med/Soc Hx Patient Social History Alcohol Use: Denies Use Number of Drinks Today: Alcohol Beverage of Choice: Wine Drug of Choice: NARCOTIC ABUSE Type Used: Cigarettes Former Smoker, Quit: Nov 10, 2017 2nd Hand Smoke Exposure: No Recent Infectious Disease Expo: No Recent Hopitalizations: Yes Immunizations Up To Date Tetanus Booster (TDap): Unknown PED Vaccines UTD: No Date of Pneumonia Vaccine: Nov 06, 2019 Date of Influenza Vaccine: Nov 22, 2019 Seasonal Allergies Seasonal Allergies: Yes Past Medical History Surgeries: Yes (LITHOTRIPSY;LUMBAR SURGERY X 4;BMT'S;EGD'S WITH ESOPHAGEAL DILATIONS;) Cardiac, Coronary Stent, Ear Surgery, Gallbladder, Orthopedic, Renal Respiratory: Yes Chronic Bronchitis, Sleep Apnea Currently Using CPAP: No Currently Using BIPAP: No Cardiac: Yes (DVT'S IN ARMS; CARDIAC STENT X 1; CAROTID DISEASE;LINQ DEVICE) Chronic Edema/Swelling, Coronary Artery Disease, Deep Vein Thrombosis, High Cholesterol, Hypertension, Palpitations Neurological: Yes (NEUROPATHY IN HANDS AND FEET) Headaches /Migraines, Neuropathy 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 Disorders: No 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 Disorders: Denies 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 Sexually Transmitted Disease: No HIV/AIDS: No Genitourinary: Yes Bladder Infection, Kidney Stones, Renal Failure Gastrointestinal: Yes (GASTRITIS;ESOPH STRICTURE/DILATION;GASTROPARESIS-CHRONIC N/V/ABD PAIN;DAVID) Gastroesophageal Reflux, Diverticulosis, Esophagitis, Irritable Bowel Musculoskeletal: Yes (CHRONIC GENERALIZED PAIN;CHRONIC BILAT SHOULDER PAIN;CHRONIC NECK PAIN ) Degenerate Disk Disease, Fibromyalgia, Chronic Back Pain Endocrine: Yes (NON-COMPLAINT;MULTIPLE EPISODES OF DKA-EASILY CONTROLLED ON INSULIN IN HOSP) Diabetes, Insulin dep HEENT: Yes (GLASSES; S/P BMT'S;BILAT CATARACT SURGERY 10/2020) Cataract, Chronic Ear Infection Loss of Vision: Bilateral Hearing Impairment: Hard of Hearing Cancer: No Psychosocial: Yes Anxiety Integumentary: Yes Psoriasis Blood Disorders: No Adverse Reaction/Blood Tranf: No Family Medical History Cancer of mouth 19 FATHER ( of esophogeal cancer.) Cardiovascular disease 19 MOTHER G8 BROTHER Completed stroke 19 FATHER G8 BROTHER Diabetes mellitus G8 BROTHER FH: lung cancer 19 MOTHER Hypertension 19 FATHER Kidney disease 19 FATHER Myocardial infarction 19 MOTHER G8 BROTHER Respiratory disorder No Family History of: AIDS CAD Over 55 Years Old, CVA, Diabetes, GI Disease, Renal Disease SOCIAL HISTORY: -ETOH--RARELY USES -DRUGS--NARCOTIC ABUSE -SMOKES 1 PPD PSH: -LINQ DEVICE PLACED 11/09/19 FOR REPORTED PALPITATIONS X 6 MONTHS, SINCE PERCOCET WAS DC'D -MULTIPLE CARDIAC CATHS--STENT X 1 TO LAD 07/13/15. LAST CATH 01/18/19--NO INTERVENTION -LUMBAR SPINE FUSION X 3--12/2002, 04/2007, AND 05/2007 -LUMBAR DISCECTOMY 10/2000--? LAMINECTOMY? -CERVICAL SPINE FUSION 11/2006 -CHOLECYSTECTOMY 1984 -BMT'S -LITHOTRIPSY AND RIGHT URETERAL STENT -EGD'S WITH ESOPHAGEAL DILATIONS -COLONOSCOPIES, LAST ONE 03/08/19 -PORT RIGHT CHEST -LEFT SHOULDER ROTATOR CUFF REPAIR 05/01/20--DR. PALACIOS -CONTINUOUS GLUCOSE MONITOR PRESENT 06/25/20--LLQ OF ABDOMEN--NOT PRESENT 10/2020 -BILATERAL CATARACT SURGERY 10/2020 Physical Exam Vital Signs Vital Signs - First Documented 01/16/21 05:05 Temp 36.7 Pulse 102 Resp 24 B/P (MAP) 189/117 (141) Pulse Ox 95 O2 Delivery Room Air Capillary Refill : Less Than 3 Seconds Height, Weight, BMI Height: 5'1.00" Weight: 122lbs. 1.0oz. 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 Tested Skin: Normal Color, Warm/Dry Procedures/Interventions Date of ETT Placement: Dec 30, 2019 Time of ETT Placement: 0750 Progress/Results/Core Measures Suspected Sepsis Recent Fever Within 48 Hours: No Infection Criteria Present: None New/Unexplained Altered Menta: No Sepsis Screen: No Definite Risk SIRS Temperature: Pulse: 102 Respiratory Rate: 24 Laboratory Tests 01/16/21 05:05: White Blood Count 16.7H Blood Pressure 189 /117 Mean: 141 Laboratory Tests 01/16/21 05:05: Platelet Count 295, Total Bilirubin 0.6 Results/Orders Lab Results Laboratory Tests Test 01/16/21 05:05 01/16/21 05:22 Range/Units White Blood Count 16.7 H 4.3-11.0 10^3/uL Red Blood Count 4.28 3.80-5.11 10^6/uL Hemoglobin 12.5 11.5-16.0 g/dL Hematocrit 37 35-52 % Mean Corpuscular Volume 86 80-99 fL Mean Corpuscular Hemoglobin 29 25-34 pg Mean Corpuscular Hemoglobin Concent 34 32-36 g/dL Red Cell Distribution Width 13.0 10.0-14.5 % Platelet Count 295 130-400 10^3/uL Mean Platelet Volume 10.5 9.0-12.2 fL Immature Granulocyte % (Auto) 0 % Neutrophils (%) (Auto) 89 H 42-75 % Lymphocytes (%) (Auto) 8 L 12-44 % Monocytes (%) (Auto) 2 0-12 % Eosinophils (%) (Auto) 0 0-10 % Basophils (%) (Auto) 0 0-10 % Neutrophils # (Auto) 14.9 H 1.8-7.8 10^3/uL Lymphocytes # (Auto) 1.3 1.0-4.0 10^3/uL Monocytes # (Auto) 0.4 0.0-1.0 10^3/uL Eosinophils # (Auto) 0.0 0.0-0.3 10^3/uL Basophils # (Auto) 0.1 0.0-0.1 10^3/uL Immature Granulocyte # (Auto) 0.1 0.0-0.1 10^3/uL Neutrophils % (Manual) 92 % Lymphocytes % (Manual) 8 % Monocytes % (Manual) 0 % Eosinophils % (Manual) 0 % Basophils % (Manual) 0 % Band Neutrophils 0 % Poikilocytosis SLIGHT Elliptocytes SLIGHT Sodium Level 135 135-145 MMOL/L Potassium Level 3.5 L 3.6-5.0 MMOL/L Chloride Level 93 L 98-107 MMOL/L Carbon Dioxide Level 17 L 21-32 MMOL/L Anion Gap 25 H 5-14 MMOL/L Blood Urea Nitrogen 23 H 7-18 MG/DL Creatinine 1.71 H 0.60-1.30 MG/DL Estimat Glomerular Filtration Rate 30 BUN/Creatinine Ratio 13 Glucose Level 764 *H 70-105 MG/DL Calcium Level 8.7 8.5-10.1 MG/DL Corrected Calcium 8.8 8.5-10.1 MG/DL Magnesium Level 1.9 1.6-2.4 MG/DL Total Bilirubin 0.6 0.1-1.0 MG/DL Aspartate Amino Transf (AST/SGOT) 11 5-34 U/L Alanine Aminotransferase (ALT/SGPT) 12 0-55 U/L Alkaline Phosphatase 117 40-136 U/L C-Reactive Protein High Sensitivity 0.15 0.00-0.50 MG/DL Total Protein 7.3 6.4-8.2 GM/DL Albumin 3.9 3.2-4.5 GM/DL Lipase 10 8-78 U/L Beta-Hydroxybutyrate (Chem panel) 6.95 H 0.00-0.27 MMOL/L Urine Color YELLOW Urine Clarity SL CLOUDY Urine pH 6.0 5-9 Urine Specific [place] 1.020 1.016-1.022 Urine Protein 3+ H NEGATIVE Urine Glucose (UA) 3+ H NEGATIVE Urine Ketones 3+ H NEGATIVE Urine Nitrite NEGATIVE NEGATIVE Urine Bilirubin 1+ H NEGATIVE Urine Urobilinogen 0.2 < = 1.0 MG/DL Urine Leukocyte Esterase NEGATIVE NEGATIVE Urine RBC (Auto) 1+ H NEGATIVE Urine RBC NONE /HPF Urine WBC RARE /HPF Urine Squamous Epithelial Cells NONE /HPF Urine Crystals PRESENT H /LPF Urine Amorphous Sediment FEW ANITHA URATES H /LPF Urine Bacteria TRACE /HPF Urine Casts NONE /LPF Urine Mucus SMALL H /LPF Urine Culture Indicated NO Urine Opiates Screen NEGATIVE NEGATIVE Urine Oxycodone Screen NEGATIVE NEGATIVE Urine Methadone Screen NEGATIVE NEGATIVE Urine Propoxyphene Screen NEGATIVE NEGATIVE Urine Barbiturates Screen NEGATIVE NEGATIVE Ur Tricyclic Antidepressants Screen NEGATIVE NEGATIVE Urine Phencyclidine Screen NEGATIVE NEGATIVE Urine Amphetamines Screen NEGATIVE NEGATIVE Urine Methamphetamines Screen NEGATIVE NEGATIVE Urine Benzodiazepines Screen NEGATIVE NEGATIVE Urine Cocaine Screen NEGATIVE NEGATIVE Urine Cannabinoids Screen NEGATIVE NEGATIVE My Orders Orders - WARD MUNGUIA MD Cbc With Automated Diff (01/16/21 05:03) Comprehensive Metabolic Panel (01/16/21 05:03) Hs C Reactive Protein (01/16/21 05:03) Lipase (01/16/21 05:03) Magnesium (01/16/21 05:03) Ua Culture If Indicated (01/16/21 05:03) Accucheck Stat ONCE (01/16/21 05:03) Ed Iv/Invasive Line Start (01/16/21 05:03) Monitor-Rhythm Ecg Trace Only (01/16/21 05:03) Ed Iv/Invasive Line Start (01/16/21 05:03) Ns Iv 1000 Ml (Sodium Chloride 0.9%) (01/16/21 05:15) Accucheck Stat ONCE (01/16/21 05:03) Accucheck Stat ONCE (01/16/21 05:03) Accucheck Stat ONCE (01/16/21 05:03) Famotidine Injection (Pepcid Injection) (01/16/21 05:15) Promethazine Injection (Phenergan Injec (01/16/21 05:15) Insulin (Regular) Human (Novolin R (Per (01/16/21 05:15) Manual Differential (01/16/21 05:05) Beta Hydroxybutyrate (01/16/21 05:28) Insulin (Regular) Human (Novolin R (Per (01/16/21 05:45) Ns Iv 1000 Ml (Sodium Chloride 0.9%) (01/16/21 06:15) Medications Given in ED Current Medications Medications Dose Ordered Sig/Jackie Route Start Time Stop Time Status Last Admin Dose Admin Famotidine 20 mg ONCE ONCE IVP 01/16/21 05:15 01/16/21 05:16 DC 01/16/21 05:15 20 MG Insulin Human Regular 5 unit ONCE ONCE IV 01/16/21 05:15 01/16/21 05:16 DC 01/16/21 05:17 5 UNIT Insulin Human Regular 5 unit ONCE ONCE IV 01/16/21 05:45 01/16/21 05:46 DC 01/16/21 05:50 5 UNIT Promethazine HCl 25 mg ONCE ONCE IVP 01/16/21 05:15 01/16/21 05:16 DC 01/16/21 05:15 25 MG Vital Signs/I&O 01/16/21 05:05 Temp 36.7 Pulse 102 Resp 24 B/P (MAP) 189/117 (141) Pulse Ox 95 O2 Delivery Room Air Capillary Refill : Less Than 3 Seconds Blood Pressure Mean: 141 Point of Care Testing Blood Glucose Action Taken: GA- DR. MUNGUIA NOTIFIED Progress Note #1: Progress Note Patient's blood sugars were too high to read on the glucometer. 2 L of IV normal saline were ordered along with 5 units of insulin. Blood sugar was still significantly elevated and a repeat dose of insulin was ordered. Patient is being admitted for DKA. Progress Note #2: Time: 06:30 Progress Note Patient had refractory nausea and vomiting after receiving Phenergan. She is allergic to scopolamine, Reglan, and Zofran. Therefore Benadryl was ordered. Departure Communication (Admissions) Time/Spoke to Admitting Phy: 06:00 Dr. Thurman Impression Primary Impression: Diabetic ketoacidosis Qualified Codes: E10.10 - Type 1 diabetes mellitus with ketoacidosis without coma Additional Impressions: Nausea and vomiting Qualified Codes: R11.2 - Nausea with vomiting, unspecified Acute kidney injury Disposition: ADMITTED INPATIENT Condition: Improved Admissions Decision to Admit Reason: Admit from ER (General) Decision to Admit/Date: Jan 16, 2021 Time/Decision to Admit Time: 05:00 Departure-Patient Inst. Referrals: CINDY CALABRESE DO (PCP/Family) Primary Care Physician WARD MUNGUIA MD Jan 16, 2021 06:00
[2021-01-16] MEDS ORDERED: diphenhydrAMINE 50 MG/ML INJ (BENADRYL) IVP ONE (06:30)
[2021-01-16] MEDS ORDERED: 1/2 NS IV SOLUTION 1,000 ML IV ONE (06:40)
[2021-01-16] MEDS ORDERED: D5 1/2 NS 1000 ML IV SOLUTION 1,000 ML IV ONE (06:41)
[2021-01-16] MEDS ORDERED: POTASSIUM CL 10MEQ/50ML IVPB 50 ML IV ONE (06:41)
--- NOTE | 2021-01-16 07:07 | Pulmonary Consultation ---
History of Present Illness History of Present Illness Date Seen by Provider: Jan 16, 2021 Time Seen by Provider: 07:01 Date of Admission Allergies and Home Medications Allergies Coded Allergies: ketorolac (Verified Allergy, Severe, ANAPHYLAXIS, PT TAKES ASA AT HOME, 03/06/19) ondansetron (Verified Allergy, Intermediate, RASH, 03/06/19) RASH/ HIVES scopolamine (Verified Allergy, Mild, Rash, 03/21/19) exenatide (Verified Allergy, Unknown, NAUSEA, 03/06/19) NON STOP VOMITING latex (Verified Allergy, Unknown, RASH, 03/06/19) metoclopramide (Verified Allergy, Unknown, RESTLESS LEGS, 03/06/19) erythromycin base (Verified Adverse Reaction, Unknown, 03/21/19) Home Medications Aspirin 81 Mg Tablet.dr, 81 MG PO DAILY, (Reported) Atorvastatin Calcium 20 Mg Tablet, 20 MG PO HS, (Reported) Bromfenac Sodium 5 Ml Drops, 1 DROP OU DAILY, (Reported) Diphenhydramine HCl 25 Mg Tablet, 25-50 MG PO Q6H PRN for ALLERGY SYMPTOMS, (Reported) Gabapentin 800 Mg Tablet, 1,600 MG PO HS, (Reported) TAKES 2 (800MG) TABLETS Gabapentin 800 Mg Tablet, 800 MG PO DAILY, (Reported) Glycerin/Propylene Glycol 1 Each Droperette, 2 DROPS OU PRN PRN for DRY EYES, (Reported) Insulin Aspart 300 Units/3 Ml Solution, 4 UNITS SC TIDAC 4 UNITS WITH MEALS PLUS SLIDING SCALE Prescribed by: JUAN DAVID BRADSHAW on 11/13/20 1304 Insulin Detemir 100 Unit/1 Ml Insuln.pen, 15 UNIT SQ BID Prescribed by: JUAN DAVID BRADSHAW on 11/13/20 1304 Melatonin 5 Mg Tablet, 5 MG PO HS, (Reported) Metoprolol Succinate 25 Mg Tab.er.24h, 25 MG PO DAILY, (Reported) Ofloxacin 5 Ml Drops, 1 DROP OD QID, (Reported) Omeprazole 20 Mg Capsule.dr, 20 MG PO DAILY, (Reported) Oxycodone HCl 10 Mg Tablet, 10 MG PO Q4H PRN for PAIN-SEVERE (8-10), (Reported) Promethazine HCl 25 Mg Tablet, 25 MG PO Q6H PRN for NAUSEA/VOMITING Prescribed by: KETAN HAY on 01/13/212046 Promethazine HCl 25 Mg Supp.rect, 25 MG RC Q6H PRN for NAUSEA/VOMITING-2ND LINE Prescribed by: LATANYA HOLLINGSWORTH on 01/14/211814 [Prednisolone] , 1 DROP OU BID, (Reported) Past Xevgidf-Votmqd-Zoqqwg Hx Past Med/Social Hx: Reviewed Nursing Past Med/Soc Hx Patient Social History Alcohol Use: Denies Use Number of Drinks Today: Alcohol Beverage of Choice: Wine Drug of Choice: NARCOTIC ABUSE Type Used: Cigarettes Former Smoker, Quit: Nov 10, 2017 2nd Hand Smoke Exposure: No Recent Infectious Disease Expo: No Recent Hopitalizations: Yes Immunizations Up To Date Tetanus Booster (TDap): Unknown PED Vaccines UTD: No Date of Pneumonia Vaccine: Nov 06, 2019 Date of Influenza Vaccine: Nov 22, 2019 Seasonal Allergies Seasonal Allergies: Yes Past Medical History Surgeries: Yes (LITHOTRIPSY;LUMBAR SURGERY X 4;BMT'S;EGD'S WITH ESOPHAGEAL DILATIONS;) Cardiac, Coronary Stent, Ear Surgery, Gallbladder, Orthopedic, Renal Respiratory: Yes Chronic Bronchitis, Sleep Apnea Currently Using CPAP: No Currently Using BIPAP: No Cardiac: Yes (DVT'S IN ARMS; CARDIAC STENT X 1; CAROTID DISEASE;LINQ DEVICE) Chronic Edema/Swelling, Coronary Artery Disease, Deep Vein Thrombosis, High Cholesterol, Hypertension, Palpitations Neurological: Yes (NEUROPATHY IN HANDS AND FEET) Headaches /Migraines, Neuropathy 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 Disorders: No 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 Disorders: 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 Sexually Transmitted Disease: No HIV/AIDS: No Genitourinary: Yes Bladder Infection, Kidney Stones, Renal Failure Gastrointestinal: Yes (GASTRITIS;ESOPH STRICTURE/DILATION;GASTROPARESIS-CHRONIC N/V/ABD PAIN;DAVID) Gastroesophageal Reflux, Diverticulosis, Esophagitis, Irritable Bowel Musculoskeletal: Yes (CHRONIC GENERALIZED PAIN;CHRONIC BILAT SHOULDER PAIN;CHRONIC NECK PAIN ) Degenerate Disk Disease, Fibromyalgia, Chronic Back Pain Endocrine: Yes (NON-COMPLAINT;MULTIPLE EPISODES OF DKA-EASILY CONTROLLED ON INSULIN IN HOSP) Diabetes, Insulin dep HEENT: Yes (GLASSES; S/P BMT'S;BILAT CATARACT SURGERY 10/2020) Cataract, Chronic Ear Infection Loss of Vision: Bilateral Hearing Impairment: Hard of Hearing Cancer: No Psychosocial: Yes Anxiety Integumentary: Yes Psoriasis Blood Disorders: No Adverse Reaction/Blood Tranf: No Family Medical History Cancer of mouth 19 FATHER ( of esophogeal cancer.) Cardiovascular disease 19 MOTHER G8 BROTHER Completed stroke 19 FATHER G8 BROTHER Diabetes mellitus G8 BROTHER FH: lung cancer 19 MOTHER Hypertension 19 FATHER Kidney disease 19 FATHER Myocardial infarction 19 MOTHER G8 BROTHER Respiratory disorder No Family History of: AIDS CAD Over 55 Years Old, CVA, Diabetes, GI Disease, Renal Disease SOCIAL HISTORY: -ETOH--RARELY USES -DRUGS--NARCOTIC ABUSE -SMOKES 1 PPD PSH: -LINQ DEVICE PLACED 11/09/19 FOR REPORTED PALPITATIONS X 6 MONTHS, SINCE PERCOCET WAS DC'D -MULTIPLE CARDIAC CATHS--STENT X 1 TO LAD 07/13/15. LAST CATH 01/18/19--NO INTERVENTION -LUMBAR SPINE FUSION X 3--12/2002, 04/2007, AND 05/2007 -LUMBAR DISCECTOMY 10/2000--? LAMINECTOMY? -CERVICAL SPINE FUSION 11/2006 -CHOLECYSTECTOMY 1984 -BMT'S -LITHOTRIPSY AND RIGHT URETERAL STENT -EGD'S WITH ESOPHAGEAL DILATIONS -COLONOSCOPIES, LAST ONE 03/08/19 -PORT RIGHT CHEST -LEFT SHOULDER ROTATOR CUFF REPAIR 05/01/20--DR. PALACIOS -CONTINUOUS GLUCOSE MONITOR PRESENT 06/25/20--LLQ OF ABDOMEN--NOT PRESENT 10/2020 -BILATERAL CATARACT SURGERY 10/2020 Review of Systems Time Seen by Provider: 07:01 Sepsis Event Evaluation Height, Weight, BMI Height: 5'1.00" Weight: 122lbs. 1.0oz. 55.822412nl; 21.00 BMI Method:Estimated Exam Exam Vital Signs Date Time Temp Pulse Resp B/P (MAP) Pulse Ox O2 Delivery O2 Flow Rate FiO2 01/16/21 05:05 36.7 102 24 189/117 (141) 95 Room Air I & O 01/16/21 07:00 Intake Total 1000 ml Balance 1000 ml Height & Weight Height: 5'1.00" Weight: 122lbs. 1.0oz. 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 -2mg of Ativan given -Accu check BS > 500 -Continue DKA protocol -Give 1000mg of Keppra IV -Repeat Labs and obtain ABG -Check CT of head without contrast secondary to renal failure. -Cardene gtt for BP if needed after 5mg of Lopressor IV. KIM FUNEZ DO Jan 16, 2021 07:07
[2021-01-16] MEDS ORDERED: HALOPERIDOL 5 MG/ML (HALDOL) VIAL IM PRN (07:15)
[2021-01-16] MEDS ORDERED: LORazepam INJ 2 MG/ML (ATIVAN) VIAL ONE ×2 (07:15→07:16)
[2021-01-16] MEDS ORDERED: DexMEDEtomidine 250 ML DRIP 250 ML IV SCH (07:15)
[2021-01-16 07:24] LABS: AMPHETAMINE SCREEN, URINE NEGATIVE (NEGATIVE); BARBITURATE SCREEN URINE NEGATIVE (NEGATIVE); BENZODIAZEPINES SCREEN URINE NEGATIVE (NEGATIVE); CANNABINOID SCREEN, URINE NEGATIVE (NEGATIVE); COCAINE SCREEN URINE NEGATIVE (NEGATIVE); METHADONE STAT NEGATIVE (NEGATIVE); METHAMPHETAMINE SCREEN URINE S NEGATIVE (NEGATIVE); OPIATE SCREEN URINE NEGATIVE (NEGATIVE); OXYCODONE STAT NEGATIVE (NEGATIVE); PROPOXYPHENE STAT NEGATIVE (NEGATIVE); TRICYCLIC ANTIDEPRESSANTS SCRE NEGATIVE (NEGATIVE)
[2021-01-16] MEDS ORDERED: meTOprolol 5 MG/5 ML (LOPRESSOR) VIAL ONE (07:30)
[2021-01-16] MEDS ORDERED: LEVETIRACETAM INJECTION 1,000 MG in NS (IVPB) 100 ML IV NR (07:30)
[2021-01-16] MEDS ORDERED: D5 1/2 NS 1000 ML IV SOLUTION 1,000 ML IV SCH (07:30)
[2021-01-16 07:33] LABS: ABG BASE EXCESS -13.9 MMOL/L (-2.5-2.5); ABG OXYGEN SATURATION 100 % (94-100); ABG PCO2 38 MMHG (35-45); ABG PO2 216 MMHG (79-93); ABG TCO2 14.1 MMOL/L (21.0-31.0)
[2021-01-16 07:34] LABS: BASOPHILS # (AUTO) 0.1 10^3/uL (0.0-0.1); BASOPHILS % (AUTO) 1 % (0-10); EOSINOPHILS % (AUTO) 0 % (0-10); HEMATOCRIT 37 % (35-52); HEMOGLOBIN 12.2 g/dL (11.5-16.0); LYMPHOCYTES # (AUTO) 3.5 10^3/uL (1.0-4.0); LYMPHOCYTES % (AUTO) 16 % (12-44); MEAN CORPUSCULAR HEMOGLOBIN 29 pg (25-34); MEAN CORPUSCULAR HGB CONC 33 g/dL (32-36); MEAN CORPUSCULAR VOLUME 89 fL (80-99); MEAN PLATELET VOLUME 10.3 fL (9.0-12.2); MONOCYTES # (AUTO) 0.3 10^3/uL (0.0-1.0); MONOCYTES % (AUTO) 2 % (0-12); NEUTROPHILS % (AUTO) 82 % (42-75); PLATELET COUNT 319 10^3/uL (130-400); WHITE BLOOD COUNT 22.1 10^3/uL (4.3-11.0)
[2021-01-16 07:39] LABS: ABG PH 7.17 (7.37-7.43)
[2021-01-16 07:40] LABS: ALLENS TEST YES-POS; INSPIRED O2 4 L; PATIENT TEMP 37.4; VENTILATOR NO
[2021-01-16] MEDS: 1/2 NS IV SOLUTION 1,000 ML IV SCH ×5 (07:43→22:41)
[2021-01-16] MEDS: POTASSIUM CL 10MEQ/50ML IVPB 50 ML IV SCH ×11 (07:44→15:06)
[2021-01-16 07:52] LABS: CALCIUM 7.9 MG/DL (8.5-10.1); CREATININE SERUM 1.5 MG/DL (0.60-1.30); MAGNESIUM 1.9 MG/DL (1.6-2.4); PHOSPHORUS 4.2 MG/DL (2.3-4.7); POTASSIUM 2.8 MMOL/L (3.6-5.0)
--- NOTE | 2021-01-16 08:49 | History & Physical-Hospitalist ---
History of Present Illness HPI/Chief Complaint Pt is a 60yoCF with a PMH of IDDMI, seizure disorder, HTN who presented to the ER due to nausea, vomiting, and elevated blood sugars. She had just had a seizure prior to my exam and she was arousable but drowsy and did not answer any questions. All history obtained from the records. She has been in the ER 3 times since 01/13/21 and 17 times in the last 6 months. She has had 9 admissions for blood sugar related issues in the last year. She reported compliance with her medications to the ER doctor but told the nurse she can't remember the last time she took any of her medications. Labs done in the ER revealed her to be in DKA and she was admitted to the ICU for insulin gtt and further management. Date Seen 01/16/21 Time Seen by a Provider: 08:43 Attending Physician Dario Thurman MD PCP Gerardo Greenwood DO Referring Physician Date of Admission Jan 16, 2021 at 06:11 Home Medications & Allergies Home Medications Reviewed patient Home Medication Reconciliation performed by pharmacy medication reconciliations resident care technician and/or nursing. Patients Allergies have been reviewed. Allergies Allergies Coded Allergies ketorolac (Verified Allergy, Severe, ANAPHYLAXIS, PT TAKES ASA AT HOME, 03/06/19) ondansetron (Verified Allergy, Intermediate, RASH, 03/06/19) RASH/ HIVES scopolamine (Verified Allergy, Mild, Rash, 03/21/19) exenatide (Verified Allergy, Unknown, NAUSEA, 03/06/19) NON STOP VOMITING latex (Verified Allergy, Unknown, RASH, 03/06/19) metoclopramide (Verified Allergy, Unknown, RESTLESS LEGS, 03/06/19) erythromycin base (Verified Adverse Reaction, Unknown, 03/21/19) Past Bifxokb-Pefkut-Zlyorb Hx Past Med/Social Hx: Reviewed Nursing Past Med/Soc Hx Patient Social History Employed/Student: unemployed Alcohol Use: Denies Use Alcohol Beverage of Choice: Wine Recreational Drug Use: Yes Drug of Choice: NARCOTIC ABUSE Former Smoker, Quit: Nov 10, 2017 Type Used: Cigarettes 2nd Hand Smoke Exposure: No Recent Foreign Travel: No Contact w/other who traveled: No Recent Hopitalizations: Yes Recent Infectious Disease Expo: No Immunizations Up To Date Tetanus Booster (TDap): Unknown Pediatric: No Date of Pneumonia Vaccine: Nov 06, 2019 Date of Influenza Vaccine: Nov 22, 2019 Seasonal Allergies Seasonal Allergies: Yes Past Medical History Surgeries: Cardiac, Coronary Stent, Ear Surgery, Gallbladder, Orthopedic, Renal Respiratory: Asthma Currently Using CPAP: No Currently Using BIPAP: No Cardiac: Chronic Edema/Swelling, Coronary Artery Disease, Deep Vein Thrombosis, High Cholesterol, Hypertension, Palpitations Neurological: Headaches /Migraines, Neuropathy 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: No Sexually Transmitted Disease: No HIV/AIDS: No 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 Disorders: Denies Menopausal Genitourinary: Bladder Infection, Kidney Stones, Renal Failure Gastrointestinal: Gastroesophageal Reflux, Diverticulosis, Esophagitis, Irritable Bowel Musculoskeletal: Degenerate Disk Disease, Fibromyalgia, Chronic Back Pain Endocrine: Diabetes, Insulin dep HEENT: Cataract, Chronic Ear Infection Loss of Vision: Bilateral Hearing Impairment: Hard of Hearing Psychosocial: Anxiety Skin/Integumentary: Psoriasis History of Blood Disorders: No Adverse Reaction to Blood Green: No Family History Reviewed Nursing Family Hx Cancer of mouth 19 FATHER ( of esophogeal cancer.) Cardiovascular disease 19 MOTHER G8 BROTHER Completed stroke 19 FATHER G8 BROTHER Diabetes mellitus G8 BROTHER FH: lung cancer 19 MOTHER Hypertension 19 FATHER Kidney disease 19 FATHER Myocardial infarction 19 MOTHER G8 BROTHER Respiratory disorder No Family History of: AIDS CAD Over 55 Years Old, CVA, Diabetes, GI Disease, Renal Disease SOCIAL HISTORY: -ETOH--RARELY USES -DRUGS--NARCOTIC ABUSE -SMOKES 1 PPD PSH: -LINQ DEVICE PLACED 11/09/19 FOR REPORTED PALPITATIONS X 6 MONTHS, SINCE PERCOCET WAS DC'D -MULTIPLE CARDIAC CATHS--STENT X 1 TO LAD 07/13/15. LAST CATH 01/18/19--NO INTERVENTION -LUMBAR SPINE FUSION X 3--12/2002, 04/2007, AND 05/2007 -LUMBAR DISCECTOMY 10/2000--? LAMINECTOMY? -CERVICAL SPINE FUSION 11/2006 -CHOLECYSTECTOMY 1984 -BMT'S -LITHOTRIPSY AND RIGHT URETERAL STENT -EGD'S WITH ESOPHAGEAL DILATIONS -COLONOSCOPIES, LAST ONE 03/08/19 -PORT RIGHT CHEST -LEFT SHOULDER ROTATOR CUFF REPAIR 05/01/20--DR. PALACIOS -CONTINUOUS GLUCOSE MONITOR PRESENT 06/25/20--LLQ OF ABDOMEN--NOT PRESENT 10/2020 -BILATERAL CATARACT SURGERY 10/2020 Review of Systems ROS-Unable to Obtain: did not answer any questions- post ictal Constitutional: see HPI Physical Exam Physical Exam Vital Signs Vital Signs - First Documented 01/16/21 01/16/21 05:05 07:30 Temp 36.7 Pulse 102 Resp 24 B/P (MAP) 189/117 (141) Pulse Ox 95 O2 Delivery Room Air O2 Flow Rate 5.00 Capillary Refill : Less Than 3 Seconds Height, Weight, BMI Height: 5'1.00" Weight: 122lbs. 1.0oz. 55.029554nj; 21.00 BMI Method:Estimated General Appearance: Chronically ill, Thin HEENT: Other (did not open eyes for me, mucous membranes dry) Respiratory: Lungs Clear, No Accessory Muscle Use, No Respiratory Distress Cardiovascular: Regular Rate, Rhythm, No Murmur Gastrointestinal: Normal Bowel Sounds, Non Tender, Soft Extremity: No Calf Tenderness, No Pedal Edema Neurologic/Psychiatric: Alert, Other (drowsy, moves all extremities independently, did not speak) Skin: Warm/Dry; No Mottled; Pallor Results Results/Procedures Labs Laboratory Tests 01/16/21 05:05 01/16/21 07:25 01/16/21 10:45 01/16/21 13:00 01/17/21 03:45 Patient resulted labs reviewed. Assessment/Plan Admission Diagnosis DKA Admission Status: Inpatient Order (span 2 midnights) Reason for Inpatient Admission: see below Assessment and Plan DKA Poorly controlled IDDMI Acute kidney injury Blood sugars 764 on presentation with Gap of 25 and beta-hydroxybutyrate of 6 pH 7.17 after seizure Creatinine 1.71, baseline around 1 Continue insulin gtt IV fluids replace electrolytes Seizure disorder Has not been compliant with meds Seizure this AM, ativan and keppra given - seizure precautions HTN Was very hypertensive on arrival cardene gtt ordered Hypokalemia Replace per protocol History of DVT Chronic anticoagulation GERD HLD Peripheral neuropathy due to diabetes Continue home meds when able to take PO intake DVT Prophylaxis: already receiving therapeutic anticoagulation Diagnosis/Problems Diagnosis/Problems (1) Metabolic acidosis Status: Acute (2) Metabolic encephalopathy Status: Acute (3) Seizure disorder Status: Acute (4) Uncontrolled insulin dependent diabetes mellitus Status: Acute (5) Acute kidney injury Status: Acute (6) Nausea and vomiting Status: Acute Qualifiers: Vomiting type: unspecified Vomiting Intractability: non-intractable Qualified Codes: R11.2 - Nausea with vomiting, unspecified (7) Type 1 diabetes mellitus Status: Acute Qualifiers: Diabetes mellitus complication status: with ketoacidosis Diabetes mellitus complication detail: without coma Qualified Codes: E10.10 - Type 1 diabetes mellitus with ketoacidosis without coma (8) Diabetic ketoacidosis Status: Acute Qualifiers: Diabetes mellitus type: type 1 Diabetes mellitus complication detail: without coma Qualified Codes: E10.10 - Type 1 diabetes mellitus with ketoacidosis without coma (9) Medical non-compliance Status: Chronic (10) Hypokalemia (11) Peripheral neuropathy Status: Chronic (12) Hypomagnesemia Status: Resolved Resolution Date/Time: 10/05/18 @ 14:16 (13) Hyponatremia Status: Resolved Resolution Date/Time: 08/25/20 @ 12:59 (14) Chronic pain Status: Chronic Qualifiers: Chronic pain type: chronic pain syndrome Qualified Codes: G89.4 - Chronic pain syndrome (15) DVT prophylaxis Status: Acute Clinical Quality Measures Smoking Cessation Counseling: Counseling-Symptomatic: 3-10 Minutes GERARDO RITTER MD Jan 16, 2021 08:49
[2021-01-16] MEDS ORDERED: risperiDONE 1 MG (RisperDAL) TAB PO SCH (09:00)
[2021-01-16 11:30] LABS: CALCIUM 7.6 MG/DL (8.5-10.1); CREATININE SERUM 1.24 MG/DL (0.60-1.30); POTASSIUM 4.1 MMOL/L (3.6-5.0)
[2021-01-16] MEDS: meTOprolol 5 MG/5 ML (LOPRESSOR) VIAL IV SCH ×2 (11:46→18:16)
[2021-01-16 13:24] LABS: ABG BASE EXCESS -3.4 MMOL/L (-2.5-2.5); ABG OXYGEN SATURATION 100 % (94-100); ABG PCO2 29 MMHG (35-45); ABG PH 7.45 (7.37-7.43); ABG PO2 141 MMHG (79-93); ABG TCO2 20.8 MMOL/L (21.0-31.0); INSPIRED O2 2 L; VENTILATOR NO
[2021-01-16 13:27] LABS: CALCIUM 7.6 MG/DL (8.5-10.1); CREATININE SERUM 1.16 MG/DL (0.60-1.30); POTASSIUM 3.6 MMOL/L (3.6-5.0)
[2021-01-16 14:13] LABS: MAGNESIUM 1.6 MG/DL (1.6-2.4); PHOSPHORUS 1.5 MG/DL (2.3-4.7)
[2021-01-16] MEDS: LACTATED RINGERS 1,000 ML IV SCH ×2 (15:09→22:40)
[2021-01-16] MEDS: inSUlin ASPART (NovoLOG) 1 UNIT/0.01 ML (CHARGE PER UNIT) SC SCH ×2 (15:48→21:06)
[2021-01-16] MEDS: LABETALOL HCL 20 MG/4 ML VIAL IV PRN ×3 (21:07→23:58)
[2021-01-16] MEDS: LEVETIRACETAM INJECTION 500 MG in NS (IVPB) 100 ML IV SCH (21:52)
[2021-01-17] MEDS: inSUlin ASPART (NovoLOG) 1 UNIT/0.01 ML (CHARGE PER UNIT) SC SCH ×6 (00:31→22:32)
[2021-01-17] MEDS: meTOprolol 5 MG/5 ML (LOPRESSOR) VIAL IV SCH (01:36)
[2021-01-17] MEDS: PROMETHAZINE INJ 25 MG/ML (PHENERGAN) AMP IV PRN ×3 (01:36→18:30)
[2021-01-17] MEDS: LABETALOL HCL 20 MG/4 ML VIAL IV PRN (03:18)
[2021-01-17] MEDS: 1/2 NS IV SOLUTION 1,000 ML IV SCH ×2 (03:19→07:32)
[2021-01-17 03:57] LABS: BASOPHILS # (AUTO) 0.1 10^3/uL (0.0-0.1); BASOPHILS % (AUTO) 1 % (0-10); EOSINOPHILS # (AUTO) 0.1 10^3/uL (0.0-0.3); EOSINOPHILS % (AUTO) 0 % (0-10); HEMATOCRIT 32 % (35-52); HEMOGLOBIN 10.5 g/dL (11.5-16.0); LYMPHOCYTES # (AUTO) 3.3 10^3/uL (1.0-4.0); LYMPHOCYTES % (AUTO) 22 % (12-44); MEAN CORPUSCULAR HEMOGLOBIN 29 pg (25-34); MEAN CORPUSCULAR HGB CONC 33 g/dL (32-36); MEAN CORPUSCULAR VOLUME 87 fL (80-99); MEAN PLATELET VOLUME 10.5 fL (9.0-12.2); MONOCYTES # (AUTO) 0.7 10^3/uL (0.0-1.0); MONOCYTES % (AUTO) 4 % (0-12); NEUTROPHILS # (AUTO) 10.9 10^3/uL (1.8-7.8); NEUTROPHILS % (AUTO) 73 % (42-75); PLATELET COUNT 239 10^3/uL (130-400); WHITE BLOOD COUNT 15.1 10^3/uL (4.3-11.0)
[2021-01-17 04:12] LABS: CHLORIDE 106 MMOL/L (98-107); POTASSIUM 3.8 MMOL/L (3.6-5.0); SODIUM 135 MMOL/L (135-145)
[2021-01-17 04:14] LABS: GLUCOSE 151 MG/DL (70-105)
[2021-01-17 04:16] LABS: CARBON DIOXIDE 19 MMOL/L (21-32)
[2021-01-17 04:18] LABS: CREATININE SERUM 0.92 MG/DL (0.60-1.30); GFR ESTIMATED > 60; PHOSPHORUS 2.3 MG/DL (2.3-4.7)
[2021-01-17 04:19] LABS: BUN/CREATININE RATIO 16
[2021-01-17 04:21] LABS: MAGNESIUM 1.5 MG/DL (1.6-2.4)
[2021-01-17] MEDS: POTASSIUM CL 10MEQ/50ML IVPB 50 ML IV SCH (06:29)
[2021-01-17] MEDS: MAGNESIUM 1 GM/100 ML IVPB 100 ML IV SCH ×3 (06:29→08:10)
[2021-01-17] MEDS: KCL 20 MEQ TAB (K-DUR) PO SCH (06:29)
--- NOTE | 2021-01-17 06:32 | Pulmonary Progress Note ---
Subjective Time Seen by a Provider: 06:28 Subjective/Events-last exam Pt appears to be doing carlyle. Sepsis Event Evaluation Height, Weight, BMI Height: 5'1.00" Weight: 122lbs. 1.0oz. 55.332824zp; 21.95 BMI Method:Estimated Exam Exam Vital Signs Date Time Temp Pulse Resp B/P (MAP) Pulse Ox O2 Delivery O2 Flow Rate FiO2 01/17/21 06:00 87 21 216/103 (140) 96 Room Air 01/17/21 05:00 79 10 193/98 (129) 95 Room Air 01/17/21 04:00 84 12 198/96 (130) 96 Room Air 01/17/21 03:00 78 20 201/90 (127) 95 Room Air 01/17/21 02:00 71 16 142/65 (90) 96 Room Air 01/17/21 01:00 78 16 173/73 (106) 96 Room Air 01/17/21 00:00 95 Room Air 01/16/21 23:58 36.8 01/16/21 23:58 Room Air 01/16/21 23:00 75 11 191/90 (123) 97 High Flow N/C 2.00 01/16/21 22:00 80 14 177/79 (111) 100 High Flow N/C 2.00 01/16/21 21:11 36.0 High Flow N/C 2.00 01/16/21 20:59 100 Nasal Cannula 2.00 01/16/21 20:00 100 Nasal Cannula 2.00 01/16/21 20:00 74 14 203/93 (129) 100 High Flow N/C 2.00 01/16/21 19:00 70 14 186/88 (120) 100 High Flow N/C 2.00 01/16/21 18:00 62 14 165/77 (106) 100 High Flow N/C 2.00 01/16/21 17:00 57 13 175/80 (111) 100 High Flow N/C 2.00 01/16/21 16:00 56 35 130/69 (89) 100 High Flow N/C 2.00 01/16/21 15:49 100 Nasal Cannula 2.00 01/16/21 15:00 62 11 91/51 (64) 100 High Flow N/C 2.00 01/16/21 14:00 65 10 130/67 (88) 100 High Flow N/C 5.00 01/16/21 13:00 69 7 137/68 (91) 100 High Flow N/C 5.00 01/16/21 13:00 68 01/16/21 12:07 100 Nasal Cannula 5.00 01/16/21 12:00 71 24 142/74 (96) 100 High Flow N/C 5.00 01/16/21 11:00 84 21 136/72 (93) 100 High Flow N/C 5.00 01/16/21 10:00 88 20 173/81 (111) 100 High Flow N/C 5.00 01/16/21 09:00 36.5 98 21 176/100 (125) 96 High Flow N/C 5.00 01/16/21 08:32 102 01/16/21 08:00 36.5 01/16/21 07:30 100 Nasal Cannula 5.00 01/16/21 07:00 116 01/16/21 06:42 36.4 114 28 208/114 97 Room Air I & O 01/17/21 07:00 Intake Total 2410 ml Output Total 1900 ml Balance 510 ml Height & Weight Height: 5'1.00" Weight: 122lbs. 1.0oz. 55.429243cr; 21.95 BMI Method:Estimated General Appearance: WD/WN, Other (Weak, ill-appearing) HEENT: PERRL/EOMI, Other (Mucous membranes somewhat dry) Neck: Normal Inspection Respiratory: Lungs Clear, Normal Breath Sounds, No Accessory Muscle Use Cardiovascular: Regular Rate, Rhythm, No Edema, No Murmur, Tachycardia Capillary Refill: Less Than 3 Seconds Extremity: Normal Inspection, No Pedal Edema Neurologic/Psychiatric: Alert, Oriented x3, No Motor/Sensory Deficits, Normal Mood/Affect, cbx operator II-XII Norm as Tested Skin: Normal Color, Warm/Dry Results Lab Laboratory Tests 01/16/21 05:05 01/16/21 07:25 01/16/21 10:45 01/16/21 13:00 01/17/21 03:45 Assessment/Plan Assessment/Plan Acute DKA - Resolved -Levemir -SSI HTN -- -Lopressor -- change to PO and add Lisinopril -PRN hydralazine hypokalemia -Replace and monitor Acute on chronic renal failure Medical noncompliance Seizure -No seizures since yesterday. -Continue Rosalie for now KIM FUNEZ DO Jan 17, 2021 06:32
[2021-01-17] MEDS: LACTATED RINGERS 1,000 ML IV SCH ×2 (06:37→08:10)
[2021-01-17] MEDS: hydrALAZINE (APESOLINE) 20 MG/ML VIAL IV PRN ×4 (06:39→21:03)
[2021-01-17] MEDS ORDERED: ACETAMINOPHEN 325 MG TABLET PO PRN (06:45)
[2021-01-17] MEDS: LEVETIRACETAM INJECTION 500 MG in NS (IVPB) 100 ML IV SCH ×2 (08:14→22:32)
[2021-01-17] MEDS: meTOprolol TARTRATE 25 MG (LOPRESSOR) TABLET PO SCH ×2 (08:14→22:33)
[2021-01-17] MEDS: lisINopril 20 MG (PRINIVIL) TABLET PO SCH (08:14)
--- NOTE | 2021-01-17 09:36 | Progress Note - Hospitalist ---
Subjective HPI/CC On Admission Date Seen by Provider: Jan 17, 2021 Time Seen by Provider: 09:31 Pt is a 60yoCF with a PMH of IDDMI, seizure disorder, HTN who presented to the ER due to nausea, vomiting, and elevated blood sugars. She had just had a seizure prior to my exam and she was arousable but drowsy and did not answer any questions. All history obtained from the records. She has been in the ER 3 times since 01/13/21 and 17 times in the last 6 months. She has had 9 admissions for blood sugar related issues in the last year. She reported compliance with her medications to the ER doctor but told the nurse she can't remember the last time she took any of her medications. Labs done in the ER revealed her to be in DKA and she was admitted to the ICU for insulin gtt and further management. Subjective/Events-last exam Pt more alert today. Complains of some nausea. Started to have diarrhea last night per night nurse. Objective Exam Vital Signs Vital Signs Date Time Temp Pulse Resp B/P (MAP) Pulse Ox O2 Delivery O2 Flow Rate FiO2 01/17/21 09:00 92 12 172/83 (112) 95 Room Air 01/16/21 23:58 36.8 01/16/21 23:00 2.00 Capillary Refill : Less Than 3 Seconds General Appearance: No Apparent Distress, WD/WN Respiratory: Lungs Clear, No Respiratory Distress Cardiovascular: Regular Rate, Rhythm, No Murmur Gastrointestinal: Normal Bowel Sounds, Non Tender, Soft Neurologic/Psychiatric: Alert, Oriented x3 Results/Procedures Lab Laboratory Tests 01/16/21 10:45 01/16/21 13:00 01/17/21 03:45 Patient resulted labs reviewed. Assessment/Plan Assessment and Plan Assess & Plan/Chief Complaint DKA Poorly controlled IDDMI Acute kidney injury- resolved Blood sugar control much improved today Creatinine back to baseline Off insulin gtt since last night IV fluids replace electrolytes transfer to the floor today Seizure disorder Has not been compliant with meds No further seizures with keppra seizure precautions HTN Resume home meds Hypokalemia Replace per protocol History of DVT Chronic anticoagulation GERD HLD Peripheral neuropathy due to diabetes Continue home meds when able to take PO intake DVT Prophylaxis: already receiving therapeutic anticoagulation Diagnosis/Problems Diagnosis/Problems (1) Metabolic acidosis Status: Acute (2) Metabolic encephalopathy Status: Acute (3) Seizure disorder Status: Acute (4) Uncontrolled insulin dependent diabetes mellitus Status: Acute (5) Acute kidney injury Status: Acute (6) Nausea and vomiting Status: Acute Qualifiers: Vomiting type: unspecified Vomiting Intractability: non-intractable Qualified Codes: R11.2 - Nausea with vomiting, unspecified (7) Type 1 diabetes mellitus Status: Acute Qualifiers: Diabetes mellitus complication status: with ketoacidosis Diabetes mellitus complication detail: without coma Qualified Codes: E10.10 - Type 1 diabetes mellitus with ketoacidosis without coma (8) Diabetic ketoacidosis Status: Acute Qualifiers: Diabetes mellitus type: type 1 Diabetes mellitus complication detail: without coma Qualified Codes: E10.10 - Type 1 diabetes mellitus with ketoacidosis without coma (9) Medical non-compliance Status: Chronic (10) Hypokalemia (11) Peripheral neuropathy Status: Chronic (12) Hypomagnesemia Status: Resolved Resolution Date/Time: 10/05/18 @ 14:16 (13) Hyponatremia Status: Resolved Resolution Date/Time: 08/25/20 @ 12:59 (14) Chronic pain Status: Chronic Qualifiers: Chronic pain type: chronic pain syndrome Qualified Codes: G89.4 - Chronic pain syndrome (15) DVT prophylaxis Status: Acute Clinical Quality Measures Smoking Cessation Counseling: Counseling-Symptomatic: 3-10 Minutes GERARDO RITTER MD Jan 17, 2021 09:36
[2021-01-17] MEDS ORDERED: INSU100I14 SQ (12:00)
[2021-01-17] MEDS ORDERED: INSU100I29 SQ (12:00)
[2021-01-17] MEDS ORDERED: DEXTROSE 50% 50 ML (IMS) SYR ONE (13:16)
[2021-01-17] MEDS ORDERED: NON-FORMULARY MEDICATION 1 EA EA (Oxycodone HCl 10 MG) PO PRN (13:30)
[2021-01-17] MEDS ORDERED: DEXTROSE 50% 50 ML (IMS) SYR IV NR (13:30)
[2021-01-17] MEDS ORDERED: DEXTROSE 50% 50 ML (IMS) SYR IV ONE (13:30)
[2021-01-17] MEDS ORDERED: OMEPRAZOLE 20 MG (PriLOSEC) CAP NON-FORMULARY PO PRN (13:30)
[2021-01-17] MEDS ORDERED: PANTOPRAZOLE 20 MG TABLET (PROTONIX) PO PRN (13:45)
[2021-01-17] MEDS ORDERED: NON-FORMULARY MEDICATION 1 EA EA (Gabapentin 1,600 MG) PO SCH (21:00)
[2021-01-17] MEDS: GABAPENTIN 400 MG (NEURONTIN) CAP PO SCH (22:33)
[2021-01-18] MEDS: diphenhydrAMINE 50 MG/ML INJ (BENADRYL) IM PRN ×2 (00:39→06:57)
[2021-01-18] MEDS: PROMETHAZINE INJ 25 MG/ML (PHENERGAN) AMP IV PRN ×4 (00:40→18:19)
[2021-01-18] MEDS: hydrALAZINE (APESOLINE) 20 MG/ML VIAL IV PRN (05:25)
[2021-01-18 05:27] LABS: BASOPHILS # (AUTO) 0.1 10^3/uL (0.0-0.1); BASOPHILS % (AUTO) 0 % (0-10); EOSINOPHILS # (AUTO) 0.1 10^3/uL (0.0-0.3); EOSINOPHILS % (AUTO) 0 % (0-10); HEMATOCRIT 34 % (35-52); HEMOGLOBIN 11.3 g/dL (11.5-16.0); LYMPHOCYTES # (AUTO) 3.1 10^3/uL (1.0-4.0); LYMPHOCYTES % (AUTO) 20 % (12-44); MEAN CORPUSCULAR HEMOGLOBIN 29 pg (25-34); MEAN CORPUSCULAR HGB CONC 34 g/dL (32-36); MEAN CORPUSCULAR VOLUME 86 fL (80-99); MEAN PLATELET VOLUME 10.4 fL (9.0-12.2); MONOCYTES # (AUTO) 0.8 10^3/uL (0.0-1.0); MONOCYTES % (AUTO) 5 % (0-12); NEUTROPHILS # (AUTO) 11.3 10^3/uL (1.8-7.8); NEUTROPHILS % (AUTO) 73 % (42-75); PLATELET COUNT 279 10^3/uL (130-400); WHITE BLOOD COUNT 15.4 10^3/uL (4.3-11.0)
[2021-01-18 05:41] LABS: CHLORIDE 104 MMOL/L (98-107); POTASSIUM 3.2 MMOL/L (3.6-5.0); SODIUM 137 MMOL/L (135-145)
[2021-01-18 05:42] LABS: GLUCOSE 188 MG/DL (70-105)
[2021-01-18 05:44] LABS: CARBON DIOXIDE 21 MMOL/L (21-32)
[2021-01-18 05:46] LABS: CREATININE SERUM 0.94 MG/DL (0.60-1.30); GFR ESTIMATED > 60; PHOSPHORUS 2.9 MG/DL (2.3-4.7)
[2021-01-18 05:47] LABS: BUN/CREATININE RATIO 14
[2021-01-18 05:49] LABS: MAGNESIUM 1.9 MG/DL (1.6-2.4)
[2021-01-18] MEDS: MAGNESIUM 1 GM/100 ML IVPB 100 ML IV SCH (05:59)
[2021-01-18] MEDS: POTASSIUM CL 10MEQ/50ML IVPB 50 ML IV SCH (06:02)
[2021-01-18] MEDS: KCL 20 MEQ TAB (K-DUR) PO SCH ×3 (06:08→09:41)
[2021-01-18] MEDS: LACTATED RINGERS 1,000 ML IV SCH (06:41)
[2021-01-18] MEDS: inSUlin ASPART (NovoLOG) 1 UNIT/0.01 ML (CHARGE PER UNIT) SC SCH ×4 (06:42→20:54)
[2021-01-18] MEDS ORDERED: NON-FORMULARY MEDICATION 1 EA EA (Gabapentin 800 MG) PO SCH (09:00)
[2021-01-18] MEDS: LEVETIRACETAM INJECTION 500 MG in NS (IVPB) 100 ML IV SCH ×2 (09:40→21:40)
[2021-01-18] MEDS: meTOprolol TARTRATE 25 MG (LOPRESSOR) TABLET PO SCH ×2 (09:41→21:20)
[2021-01-18] MEDS: lisINopril 20 MG (PRINIVIL) TABLET PO SCH (09:41)
[2021-01-18] MEDS: GABAPENTIN 400 MG (NEURONTIN) CAP PO SCH ×2 (09:41→21:20)
[2021-01-18] MEDS ORDERED: PANTOPRAZOLE 40 MG (PROTONIX) VIAL IV ONE (10:45)
--- NOTE | 2021-01-18 10:46 | Progress Note - Hospitalist ---
Subjective HPI/CC On Admission Date Seen by Provider: Jan 18, 2021 Time Seen by Provider: 10:41 Pt is a 60yoCF with a PMH of IDDMI, seizure disorder, HTN who presented to the ER due to nausea, vomiting, and elevated blood sugars. She had just had a seizure prior to my exam and she was arousable but drowsy and did not answer any questions. All history obtained from the records. She has been in the ER 3 times since 01/13/21 and 17 times in the last 6 months. She has had 9 admissions for blood sugar related issues in the last year. She reported compliance with her medications to the ER doctor but told the nurse she can't remember the last time she took any of her medications. Labs done in the ER revealed her to be in DKA and she was admitted to the ICU for insulin gtt and further management. Subjective/Events-last exam Pt reports doing ok but having some indigestion. Started with her vomiting. She denies radiation or SOB with it. Started on CLD but only taking sips. States not ready to advance. Objective Exam Vital Signs Vital Signs Date Time Temp Pulse Resp B/P (MAP) Pulse Ox O2 Delivery O2 Flow Rate FiO2 01/18/21 08:26 36.6 105 18 172/79 (110) 95 Room Air 01/16/21 23:00 2.00 Capillary Refill : Less Than 3 Seconds General Appearance: No Apparent Distress, Chronically ill Respiratory: Lungs Clear, No Respiratory Distress Cardiovascular: Regular Rate, Rhythm, No Murmur Gastrointestinal: Normal Bowel Sounds, Soft; No Distended, No Guarding; Tenderness (mild epigastric tenderness to palpation) Neurologic/Psychiatric: Alert, Oriented x3 Results/Procedures Lab Laboratory Tests 01/18/21 05:11 Patient resulted labs reviewed. Assessment/Plan Assessment and Plan Assess & Plan/Chief Complaint DKA Poorly controlled IDDMI Acute kidney injury- resolved Was hypoglyemic yesterday afternoon so decreased Levemir and doing better Creatinine back to baseline Off insulin gtt since last night IV fluids, rate decreased to 50ml/hr Seizure disorder Has not been compliant with meds No further seizures with keppra, switch to oral when able to take seizure precautions Nausea and vomiting - Likely due to gastroparesis from poorly controlled IDDM - has multiple allergies to antiemetics and requests benadryl and phenergan to be pushed- exhibits concerning signs for secondary gain - Informed her that meds will not be pushed but will be available and informed her of risks of oversedation, she agrees to this HTN Labile but overall improving with home meds- will increase metoprolol duet o sinus tachycardia History of DVT Chronic anticoagulation GERD HLD Peripheral neuropathy due to diabetes Continue home meds DVT Prophylaxis: Lovenox Diagnosis/Problems Diagnosis/Problems (1) Metabolic acidosis Status: Acute (2) Metabolic encephalopathy Status: Acute (3) Seizure disorder Status: Acute (4) Uncontrolled insulin dependent diabetes mellitus Status: Acute (5) Acute kidney injury Status: Acute (6) Nausea and vomiting Status: Acute Qualifiers: Vomiting type: unspecified Vomiting Intractability: non-intractable Qualified Codes: R11.2 - Nausea with vomiting, unspecified (7) Type 1 diabetes mellitus Status: Acute Qualifiers: Diabetes mellitus complication status: with ketoacidosis Diabetes mellitus complication detail: without coma Qualified Codes: E10.10 - Type 1 diabetes mellitus with ketoacidosis without coma (8) Diabetic ketoacidosis Status: Acute Qualifiers: Diabetes mellitus type: type 1 Diabetes mellitus complication detail: without coma Qualified Codes: E10.10 - Type 1 diabetes mellitus with ketoacidosis without coma (9) Medical non-compliance Status: Chronic (10) Hypokalemia (11) Peripheral neuropathy Status: Chronic (12) Hypomagnesemia Status: Resolved Resolution Date/Time: 10/05/18 @ 14:16 (13) Hyponatremia Status: Resolved Resolution Date/Time: 08/25/20 @ 12:59 (14) Chronic pain Status: Chronic Qualifiers: Chronic pain type: chronic pain syndrome Qualified Codes: G89.4 - Chronic pain syndrome (15) DVT prophylaxis Status: Acute Clinical Quality Measures Smoking Cessation Counseling: Counseling-Symptomatic: 3-10 Minutes GERARDO RITTER MD Jan 18, 2021 10:46
--- NOTE | 2021-01-18 11:05 | Physical Therapy Evaluation ---
PT Evaluation-General Medical Diagnosis Admission Date Jan 16, 2021 at 06:11 Medical Diagnosis: DKA Onset Date: Jan 16, 2021 Therapy Diagnosis Therapy Diagnosis: debility Height/Weight Height (Feet): 5 Height (Inches): 1.00 Weight (Pounds): 122 Weight (Ounces): 1.0 Precautions Precautions/Isolations: Seizure, Fall Prevention, Standard Precautions Referral Physician: Yen Reason for Referral: Evaluation/Treatment Medical History Pertinent Medical History: Alcoholism, CAD, DM, GERD, HTN, Neuropathy, Renal Insufficiency, Smoking Current History EMS secondary to N&V (3rd ER visit this week) Reviewed History: Yes Social History Home: Apartment Current Living Status: Alone Entry Into Home: Level Entry Prior Prior Level of Function SCALE: Activities may be completed with or without assistive devices. 2-Igqsqimajq-paxulhv completes the activity by him/herself with no assistance from a helper. 5-Set-up or Clean-up Assistance-helper sets up or cleans up; patient completes activity. [place] assists only prior to or following the activity. 4-Supervision or Touching Assistance-helper provides verbal cues and/or touching/steadying and/or contact guard assistance as patient completes activity. Assistance may be provided throughout the activity or intermittently. 3-Partial/Moderate Assistance-helper does LESS THAN HALF the effort. [place] lifts, holds or supports trunk or limbs, but provides less than half the effort. 2-Substantial/Maximal Assistance-helper does MORE THAN HALF the effort. [place] lifts or holds trunk or limbs and provides more than half the effort. 8-Undypfzuk-ebybxd does ALL the effort. Patient does none of the effort to co mplete the activity. Or, the assistance of 2 or more helpers is required for the patient to complete the activity. If activity was not attempted, code reason: 7-Patient Refused. 9-Not Applicable-not attempted and the patient did not perform the activity before the current illness, exacerbation or injury. 10-Not Attempted due to Environmental Limitations-(lack of equipment, weather restraints, etc.). 88-Not Attempted due to Medical Conditions or Safety Concerns. Bed Mobility: 6 Transfers (B,C,W/C): 6 Gait: 6 Stairs: 9 Indoor Mobility (Ambulation): Independent Stairs: Not Applicalbe Prior Devices Use: Walker PT Evaluation-Current Subjective Patient agrees to PT. Objective Patient Orientation: Normal For Age Attachments: IV ROM/Strength ROM Lower Extremities bilateral LE WFL Strength Lower Extremities 4/5 grossly bilateral LE Integumentary/Posture Integumentary refer to nursing notes Bowel Incontinence: No Bladder Incontinence: No Posture WFL Neuromuscular (Tone, Coordination, Reflexes) grossly intact Sensory Vision: Functional Hearing: Functional Transfers Roll Left to Right (QC): 6 Sit to Lying (QC): 6 Lying to Sitting/Side of Bed(Q: 6 Sit to Stand (QC): 4 Chair/Pdx-tf-Vdozq Xfer(QC): 4 Toilet Transfer (QC): 4 Gait Does the Patient Walk?: Yes Mode of Locomotion: Walk Anticipated Mode of Locomotion: Walk Walk 10 feet (QC): 4 Walk 50 ft with 2 Turns(QC): 4 Walk 150 ft (QC): 7 Gait Assistive Device: FWW Comments/Gait Description functional gait sequence Balance Sitting Static: Normal Sitting Dynamic: Normal Standing Static: Normal Standing Dynamic: Normal Assessment/Needs 60 y.o. female, will be seen short term by skilled PT to address functional strength and mobility to improve current LOF. Rehab Potential: [place] Rehab Potential-Barriers: compliance PT Piping Design Specialist Goals Piping Design Specialist Goals PT Piping Design Specialist Goals Time Frame: Feb 01, 2021 Roll Left & Right (QC): 6 Sit to Lying (QC): 6 Lying-Sitting on Side/Bed(QC): 6 Sit to Stand (QC): 6 Chair/Ubk-fg-[place]uy[place] Xfer(QC): 6 Toilet Transfer (QC): 6 Does the Patient Walk: Yes Walk 10 feet (QC): 6 Walk 50ft with 2 Turns (QC): 6 Walk 150 ft (QC): 6 PT Plan Problem List Problem List: Activity Tolerance Treatment/Plan Treatment Plan: Continue Plan of Care Treatment Plan: Bed Mobility, Education, Functional Activity Yue, Functional Strength, Gait, Safety, Therapeutic Exercise, Transfers Treatment Duration: Feb 01, 2021 Frequency: 6 times per week Estimated Hrs Per Day: .25 hour per day Patient and/or Family Agrees t: Yes Time/GCodes Time In: 1025 Time Out: 1035 Total Billed Treatment Time: 10 Total Billed Treatment 1 visit EVModC 10 min KELVIN CALVO PT Jan 18, 2021 11:05
[2021-01-18] MEDS ORDERED: FLU QUADRIvalent (3YOA+) 60 mcg/0.5 ml 2020-21 (AFLURIA) IM ONE (12:00)
[2021-01-18] MEDS: diphenhydrAMINE 50 MG/ML INJ (BENADRYL) IVP PRN ×2 (12:24→18:19)
[2021-01-19] MEDS: hydrALAZINE (APESOLINE) 20 MG/ML VIAL IV PRN (00:58)
[2021-01-19] MEDS: LACTATED RINGERS 1,000 ML IV SCH (01:28)
[2021-01-19] MEDS: PROMETHAZINE INJ 25 MG/ML (PHENERGAN) AMP IV PRN ×4 (01:31→20:48)
[2021-01-19] MEDS: diphenhydrAMINE 50 MG/ML INJ (BENADRYL) IVP PRN ×4 (01:31→20:48)
[2021-01-19 05:20] LABS: BASOPHILS # (AUTO) 0.1 10^3/uL (0.0-0.1); BASOPHILS % (AUTO) 1 % (0-10); EOSINOPHILS # (AUTO) 0.2 10^3/uL (0.0-0.3); EOSINOPHILS % (AUTO) 2 % (0-10); HEMATOCRIT 31 % (35-52); HEMOGLOBIN 10.1 g/dL (11.5-16.0); LYMPHOCYTES # (AUTO) 4.8 10^3/uL (1.0-4.0); LYMPHOCYTES % (AUTO) 38 % (12-44); MEAN CORPUSCULAR HEMOGLOBIN 30 pg (25-34); MEAN CORPUSCULAR HGB CONC 33 g/dL (32-36); MEAN CORPUSCULAR VOLUME 91 fL (80-99); MEAN PLATELET VOLUME 10.5 fL (9.0-12.2); MONOCYTES # (AUTO) 0.7 10^3/uL (0.0-1.0); MONOCYTES % (AUTO) 5 % (0-12); NEUTROPHILS # (AUTO) 6.9 10^3/uL (1.8-7.8); NEUTROPHILS % (AUTO) 54 % (42-75); PLATELET COUNT 246 10^3/uL (130-400); WHITE BLOOD COUNT 12.7 10^3/uL (4.3-11.0)
[2021-01-19 05:30] LABS: POTASSIUM 4.7 MMOL/L (3.6-5.0)
[2021-01-19 05:31] LABS: CALCIUM 7.7 MG/DL (8.5-10.1)
[2021-01-19 05:35] LABS: CREATININE SERUM 1.24 MG/DL (0.60-1.30); PHOSPHORUS 2.1 MG/DL (2.3-4.7)
[2021-01-19 05:37] LABS: MAGNESIUM 1.8 MG/DL (1.6-2.4)
[2021-01-19] MEDS: POTASSIUM CL 10MEQ/50ML IVPB 50 ML IV SCH (05:41)
[2021-01-19] MEDS: KCL 20 MEQ TAB (K-DUR) PO SCH (05:42)
[2021-01-19] MEDS: MAGNESIUM 1 GM/100 ML IVPB 100 ML IV SCH (05:42)
[2021-01-19] MEDS: inSUlin ASPART (NovoLOG) 1 UNIT/0.01 ML (CHARGE PER UNIT) SC SCH ×4 (06:21→21:55)
[2021-01-19] MEDS: meTOprolol TARTRATE 25 MG (LOPRESSOR) TABLET PO SCH ×2 (08:38→20:47)
[2021-01-19] MEDS: GABAPENTIN 400 MG (NEURONTIN) CAP PO SCH ×2 (08:38→20:46)
[2021-01-19] MEDS: lisINopril 20 MG (PRINIVIL) TABLET PO SCH (08:39)
[2021-01-19] MEDS: LEVETIRACETAM INJECTION 500 MG in NS (IVPB) 100 ML IV SCH (08:39)
[2021-01-19] MEDS: PANTOPRAZOLE 40 MG (PROTONIX) VIAL IV SCH (08:39)
--- NOTE | 2021-01-19 10:47 | Progress Note - Hospitalist ---
Subjective HPI/CC On Admission Date Seen by Provider: Jan 19, 2021 Time Seen by Provider: 10:42 Pt is a 60yoCF with a PMH of IDDMI, seizure disorder, HTN who presented to the ER due to nausea, vomiting, and elevated blood sugars. She had just had a seizure prior to my exam and she was arousable but drowsy and did not answer any questions. All history obtained from the records. She has been in the ER 3 times since 01/13/21 and 17 times in the last 6 months. She has had 9 admissions for blood sugar related issues in the last year. She reported compliance with her medications to the ER doctor but told the nurse she can't remember the last time she took any of her medications. Labs done in the ER revealed her to be in DKA and she was admitted to the ICU for insulin gtt and further management. Subjective/Events-last exam Pt reports feeling better but having worsening epigastric pain. No other complaints. Reports history of "fungal infection" in her esophagus. Objective Exam Vital Signs Vital Signs Date Time Temp Pulse Resp B/P (MAP) Pulse Ox O2 Delivery O2 Flow Rate FiO2 01/19/21 10:18 94 Room Air 01/19/21 09:00 2.00 01/19/21 07:55 37.0 72 20 111/53 (72) Capillary Refill : Less Than 3 SecondsLess Than 3 Seconds General Appearance: No Apparent Distress, Chronically ill Cardiovascular: Regular Rate, Rhythm, No Murmur Gastrointestinal: Normal Bowel Sounds, Soft Neurologic/Psychiatric: Alert, Oriented x3 Results/Procedures Lab Laboratory Tests 01/19/21 05:07 Patient resulted labs reviewed. Assessment/Plan Assessment and Plan Assess & Plan/Chief Complaint DKA- resolved Poorly controlled IDDMI Acute kidney injury- resolved - BS controll better Creatinine back to baseline Off insulin gtt Seizure disorder Has not been compliant with meds switch to oral Keppra seizure precautions Nausea and vomiting - Likely due to gastroparesis from poorly controlled IDDM - has multiple allergies to antiemetics and requests benadryl and phenergan to be pushed- exhibits concerning signs for secondary gain - Informed her that meds will not be pushed but will be available and informed her of risks of oversedation, she agrees to this - Surgery consulted for possible EGD - continue Protonix HTN Improved with high dose Metoprolol History of DVT Chronic anticoagulation GERD HLD Peripheral neuropathy due to diabetes Continue home meds DVT Prophylaxis: Lovenox Diagnosis/Problems Diagnosis/Problems (1) Metabolic acidosis Status: Acute (2) Metabolic encephalopathy Status: Acute (3) Seizure disorder Status: Acute (4) Uncontrolled insulin dependent diabetes mellitus Status: Acute (5) Acute kidney injury Status: Acute (6) Nausea and vomiting Status: Acute Qualifiers: Vomiting type: unspecified Vomiting Intractability: non-intractable Qualified Codes: R11.2 - Nausea with vomiting, unspecified (7) Type 1 diabetes mellitus Status: Acute Qualifiers: Diabetes mellitus complication status: with ketoacidosis Diabetes mellitus complication detail: without coma Qualified Codes: E10.10 - Type 1 diabetes mellitus with ketoacidosis without coma (8) Diabetic ketoacidosis Status: Acute Qualifiers: Diabetes mellitus type: type 1 Diabetes mellitus complication detail: without coma Qualified Codes: E10.10 - Type 1 diabetes mellitus with ketoacidosis without coma (9) Medical non-compliance Status: Chronic (10) Hypokalemia (11) Peripheral neuropathy Status: Chronic (12) Hypomagnesemia Status: Resolved Resolution Date/Time: 10/05/18 @ 14:16 (13) Hyponatremia Status: Resolved Resolution Date/Time: 08/25/20 @ 12:59 (14) Chronic pain Status: Chronic Qualifiers: Chronic pain type: chronic pain syndrome Qualified Codes: G89.4 - Chronic pain syndrome (15) DVT prophylaxis Status: Acute Clinical Quality Measures Smoking Cessation Counseling: Counseling-Symptomatic: 3-10 Minutes GERARDO RITTER MD Jan 19, 2021 10:47
--- NOTE | 2021-01-19 11:16 | Consultation - Surgery ---
SHIRA LUI,MED STUDENT 01/19/21 1116: History of Present Illness History of Present Illness Patient Consulted On(joshua/time) 01/19/21 11:14 Date Seen by Provider: Jan 19, 2021 Time Seen by Provider: 11:01 History of Present Illness Pt is a 60yo female with PMH of poorly controlled IDDM, HTN, HLD, seizure disorder and GERD who was admitted 01/16 for DKA. Surgery was consulted regarding worsening epigastric pain and reported history of esophageal fungal infection. The pt states that she has been having chest/epigastric pain on and off for "a while" but it has worsened in the past week and is now constant. She states it is a 10/10 sharp pain that is worse with swallowing. Nothing has made it better. States her last EGD and colonoscopy were 1-2 years ago and states she had a fungal infection in her esophagus. Her pain is similar to what she felt at that time. Reports taking omeprazole for acid reflux. She reports nausea, vomiting and diarrhea for the last week as well. Also notes the feeling of food "getting stuck" in her throat and throat pain. Denies fever, chills, hematemesis, SOB. Allergies and Home Medications Allergies Coded Allergies: ketorolac (Verified Allergy, Severe, ANAPHYLAXIS, PT TAKES ASA AT HOME, 03/06/19) ondansetron (Verified Allergy, Intermediate, RASH, 03/06/19) RASH/ HIVES scopolamine (Verified Allergy, Mild, Rash, 03/21/19) exenatide (Verified Allergy, Unknown, NAUSEA, 03/06/19) NON STOP VOMITING latex (Verified Allergy, Unknown, RASH, 03/06/19) metoclopramide (Verified Allergy, Unknown, RESTLESS LEGS, 03/06/19) erythromycin base (Verified Adverse Reaction, Unknown, 03/21/19) Home Medications Atorvastatin Calcium 20 Mg Tablet, 20 MG PO HS, (Reported) Gabapentin 800 Mg Tablet, 1,600 MG PO HS, (Reported) TAKES 2 (800MG) TABLETS Gabapentin 800 Mg Tablet, 800 MG PO DAILY, (Reported) Insulin Aspart 300 Units/3 Ml Solution, UNITS SQ AC, (Reported) USES PER SLIDING SCALE Insulin Detemir 100 Unit/1 Ml Insuln.pen, 15 UNIT SQ BID, (Reported) Metoprolol Succinate 25 Mg Tab.er.24h, 25 MG PO DAILY, (Reported) Omeprazole 20 Mg Capsule.dr, 20 MG PO DAILY PRN for HEARTBURN, (Reported) Oxycodone HCl 10 Mg Tablet, 10 MG PO Q8H PRN for PAIN-SEVERE (8-10), (Reported) Past Abidhck-Xcavno-Pohykd Hx Patient Social History Number of Drinks Today: HH Drug of Choice: NARCOTIC ABUSE Smoking Status: Current Everyday Smoker Type Used: Cigarettes 2nd Hand Smoke Exposure: No Recent Hopitalizations: Yes Alcohol Use?: Unable to obtain Have you traveled recently?: Unable to obtain Immunizations Up To Date Tetanus Booster (TDap): Unknown PED Vaccines UTD: No Date of Pneumonia Vaccine: Nov 06, 2019 Date of Influenza Vaccine: Nov 22, 2019 Seasonal Allergies Seasonal Allergies: Yes Surgeries History of Surgeries: Yes (LITHOTRIPSY;LUMBAR SURGERY X 4;BMT'S;EGD'S WITH ESOPHAGEAL DILATIONS;) Surgeries: Cardiac, Coronary Stent, Ear Surgery, Gallbladder, Orthopedic, Renal Respiratory History of Respiratory Disorde: Yes Respiratory Disorders: Chronic Bronchitis, Sleep Apnea Cardiovascular History of Cardiac Disorders: Yes (DVT'S IN ARMS; CARDIAC STENT X 1; CAROTID DISEASE;LINQ DEVICE) Cardiac Disorders: Chronic Edema/Swelling, Coronary Artery Disease, Deep Vein Thrombosis, High Cholesterol, Hypertension, Palpitations Neurological History of Neurological Disord: Yes (NEUROPATHY IN HANDS AND FEET) Neurological Disorders: Headaches /Migraines, Neuropathy 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 System Hx 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 Disorders: No Sexually Transmitted Disease: No HIV/AIDS: No 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 Disorders: Denies 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 History: Menopausal Genitourinary History of Genitourinary Disor: Yes Genitourinary Disorders: Bladder Infection, Kidney Stones, Renal Failure Gastrointestinal History of Gastrointestinal Di: Yes (GASTRITIS;ESOPH STR ICTURE/DILATION;GASTROPARESIS-CHRONIC N/V/ABD PAIN;DAVID) Gastrointestinal Disorders: Gastroesophageal Reflux, Diverticulosis, Esophagitis, Irritable Bowel Musculoskeletal History of Musculoskeletal Dis: Yes (CHRONIC GENERALIZED PAIN;CHRONIC BILAT SHOULDER PAIN;CHRONIC NECK PAIN ) Musculoskeletal Disorders: Degenerate Disk Disease, Fibromyalgia, Chronic Back Pain Endocrine History of Endocrine Disorders: Yes (NON-COMPLAINT;MULTIPLE EPISODES OF DKA- EASILY CONTROLLED ON INSULIN IN HOSP) Endocrine Disorders: Diabetes, Insulin dep HEENT History of HEENT Disorders: Yes (GLASSES; S/P BMT'S;BILAT CATARACT SURGERY 10/2020) HEENT Disorders: Cataract, Chronic Ear Infection Loss of Vision: Bilateral Hearing Impairment: Hard of Hearing Cancer History of Cancer: No Psychosocial History of Psychiatric Problem: Yes Behavioral Health Disorders: Anxiety Integumentary History of Skin or Integumenta: Yes Skin/Integumentary Disorders: Psoriasis Blood Transfusions History of Blood Disorders: No Adverse Reaction to a Blood Tr: No Family Medical History Significant Family History: CAD Over 55 Years Old, CVA, Diabetes, GI Disease, Renal Disease Family Medial History: Cancer of mouth 19 FATHER ( of esophogeal cancer.) Cardiovascular disease 19 MOTHER G8 BROTHER Completed stroke 19 FATHER G8 BROTHER Diabetes mellitus G8 BROTHER FH: lung cancer 19 MOTHER Hypertension 19 FATHER Kidney disease 19 FATHER Myocardial infarction 19 MOTHER G8 BROTHER Respiratory disorder No Family History of: AIDS Review of Systems-General Constitutional: No chills, No fever EENTM: throat pain; No blurred vision, No double vision Respiratory: cough (reports this as baseline from smoking); No short of breath Cardiovascular: chest pain (sternal); No edema, No palpitations Gastrointestinal: abdominal pain (epigastric), diarrhea, dysphagia (feels ); No hematemesis, No heartburn; nausea, vomiting Genitourinary: No dysuria, No frequency Musculoskeletal: joint pain, muscle pain Skin: No change in color, No lesions, No rash Psychiatric/Neurological: Denies Anxiety, Denies Depressed; Headache, Numbness (BLE), Tingling (BLE) Other Hematologic: reports easy bruising, denies easy bleeding Physical Exam-General Problems Physical Exam Vital Signs Vital Signs - First Documented 01/16/21 01/16/21 05:05 07:30 Temp 36.7 Pulse 102 Resp 24 B/P (MAP) 189/117 (141) Pulse Ox 95 O2 Delivery Room Air O2 Flow Rate 5.00 Capillary Refill : Less Than 3 SecondsLess Than 3 Seconds General Appearance: no apparent distress, other (chronically ill) Eyes: Bilateral Eye PERRL, Bilateral Eye EOMI HEENT: No pharyngeal erythema, No tonsillar exudate Neck: non-tender, supple; No lymphadenopathy (R), No lymphadenopathy (L) Respiratory: lungs clear, no respiratory distress, no accessory muscle use, other (tenderness to palpation in lower sternal area) Cardiovascular: regular rate, rhythm, no murmur Peripheral Pulses: 2+ Dorsalis Pedis (R), 2+ Left Dors-Pedis (L), 2+ Radial Pulses (R), 2+ Radial Pulses (L) Gastrointestinal: normal bowel sounds, soft; No distended; tenderness (epigastric area, worse with palpation) Extremities: no pedal edema, calf tenderness (bilateral on anterior calfs with palpation) Neurologic/Psychiatric: alert, normal mood/affect, oriented x 3 Skin: normal color, warm/dry Data Review Labs Laboratory Tests 01/18/21 11:33: Glucometer 336H 01/18/21 16:20: Glucometer 257H 01/18/21 20:49: Glucometer 135H 01/19/21 05:07: White Blood Count 12.7H, Red Blood Count 3.41L, Hemoglobin 10.1L, Hematocrit 31L , Mean Corpuscular Volume 91, Mean Corpuscular Hemoglobin 30, Mean Corpuscular Hemoglobin Concent 33, Red Cell Distribution Width 13.7, Platelet Count 246, Mean Platelet Volume 10.5, Immature Granulocyte % (Auto) 1, Neutrophils (%) (Auto) 54, Lymphocytes (%) (Auto) 38, Monocytes (%) (Auto) 5, Eosinophils (%) (Auto) 2, Basophils (%) (Auto) 1, Neutrophils # (Auto) 6.9, Lymphocytes # (Auto) 4.8H, Monocytes # (Auto) 0.7, Eosinophils # (Auto) 0.2, Basophils # (Auto) 0.1, Immature Granulocyte # (Auto) 0.1, Sodium Level 136, Potassium Level 4.7, Chloride Level 107, Carbon Dioxide Level 22, Anion Gap 7, Blood Urea Nitrogen 14, Creatinine 1.24, Estimat Glomerular Filtration Rate 44, BUN/Creatinine Ratio 11, Glucose Level 300H, Calcium Level 7.7L, Phosphorus Level 2.1L, Magnesium Level 1.8, Beta-Hydroxybutyrate (Chem panel) 0.08 Microbiology 01/17/21 C. difficile GDH Antigen & Toxins - Final, Complete Assessment/Plan Assessment/Plan Assessment/Plan Epigastric/sternal pain GERD Hx of gastritis, esophagitis and distal esophageal stricture s/p dilation- per EGD report February 2019 poorly controlled IDDM Seizure disorder HTN, HLD, CAD Continue protonix Consider upper EGD Pain control, glucose control, IV fluids Clinical Quality Measures Smoking Cessation Counseling: Counseling-Symptomatic: 3-10 Minutes ORI VILLEGAS DO 01/19/212021: History of Present Illness History of Present Illness Time Seen by Provider: 11:11 History of Present Illness When I saw pt she stated she had a lot of pain in the middle of her chest and wa s having trouble swallowing. This is similar to and episode 1-2 yrs ago. Allergies and Home Medications Allergies Coded Allergies: ketorolac (Verified Allergy, Severe, ANAPHYLAXIS, PT TAKES ASA AT HOME, 03/06/19) ondansetron (Verified Allergy, Intermediate, RASH, 03/06/19) RASH/ HIVES scopolamine (Verified Allergy, Mild, Rash, 03/21/19) exenatide (Verified Allergy, Unknown, NAUSEA, 03/06/19) NON STOP VOMITING latex (Verified Allergy, Unknown, RASH, 03/06/19) metoclopramide (Verified Allergy, Unknown, RESTLESS LEGS, 03/06/19) erythromycin base (Verified Adverse Reaction, Unknown, 03/21/19) Home Medications Atorvastatin Calcium 20 Mg Tablet, 20 MG PO HS, (Reported) Gabapentin 800 Mg Tablet, 1,600 MG PO HS, (Reported) TAKES 2 (800MG) TABLETS Gabapentin 800 Mg Tablet, 800 MG PO DAILY, (Reported) Insulin Aspart 300 Units/3 Ml Solution, UNITS SQ AC, (Reported) USES PER SLIDING SCALE Insulin Detemir 100 Unit/1 Ml Insuln.pen, 15 UNIT SQ BID, (Reported) Metoprolol Succinate 25 Mg Tab.er.24h, 25 MG PO DAILY, (Reported) Omeprazole 20 Mg Capsule.dr, 20 MG PO DAILY PRN for HEARTBURN, (Reported) Oxycodone HCl 10 Mg Tablet, 10 MG PO Q8H PRN for PAIN-SEVERE (8-10), (Reported) Patient Home Medication List Home Medication List Reviewed: Yes Past Bszzasu-Fxtfcx-Zpeckj Hx Surgeries History of Surgeries: Yes (EGD and colonoscopy) Gastrointestinal History of Gastrointestinal Di: Yes Gastrointestinal Disorders: Gastroesophageal Reflux Family Medical History Significant Family History: Cancer, Diabetes, Hypertension Family Medial History: Cancer of mouth 19 FATHER ( of esophogeal cancer.) Cardiovascular disease 19 MOTHER G8 BROTHER Completed stroke 19 FATHER G8 BROTHER Diabetes mellitus G8 BROTHER FH: lung cancer 19 MOTHER Hypertension 19 FATHER Kidney disease 19 FATHER Myocardial infarction 19 MOTHER G8 BROTHER Respiratory disorder No Family History of: AIDS Review of Systems-General Constitutional: No chills, No fever EENTM: throat pain; No blurred vision, No double vision, No epistaxis Respiratory: cough (reports this as baseline from smoking); No short of breath Cardiovascular: chest pain (sternal); No edema, No palpitations Gastrointestinal: abdominal pain (epigastric), diarrhea, dysphagia (feels ); No hematemesis, No heartburn; nausea, vomiting Genitourinary: No dysuria, No frequency Musculoskeletal: joint pain, muscle pain Skin: No lesions, No rash Psychiatric/Neurological: Denies Anxiety, Denies Depressed; Headache, Numbness (BLE) Physical Exam-General Problems Physical Exam General Appearance: no apparent distress, other (chronically ill) Eyes: Bilateral Eye PERRL, Bilateral Eye EOMI HEENT: No scleral icterus (R), No scleral icterus (L), No pharyngeal erythema, No tonsillar exudate Neck: non-tender, supple Respiratory: lungs clear, no respiratory distress, no accessory muscle use Cardiovascular: regular rate, rhythm, no murmur Gastrointestinal: normal bowel sounds, soft; No distended; tenderness (epigastric area, worse with palpation) Back: no CVA tenderness, no vertebral tenderness Extremities: no pedal edema, calf tenderness (bilateral on anterior calfs with palpation) 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 All questions answered to her satisfaction. We will most likely do biopsies and may do dilation if necessary. Continue protonix, Pain control, glucose control, IV fluids Supervisory-Addendum Brief Verification & Attestation Participated in pt care: history, MDM, physical Personally performed: exam, history, MDM Care discussed with: Medical Student Procedures: n/a Verification and Attestation of Medical Student E/M Service A medical student performed and documented this service. I then reviewed and verified all information documented by the medical student and made modifications to such information, when appropriate. I personally performed a physical exam, medical decision making and then discussed any differences between the notes and made revisions as necessary to create one note. Ori Villegas , 01/19/21 , 20:22 SHIRA LUI,MED STUDENT Jan 19, 2021 11:16 ORI VILLEGAS DO Jan 19, 2021 20:22
[2021-01-19] MEDS: LEVETIRACETAM 500 MG (KEPPRA) TAB PO SCH (20:47)
[2021-01-20] MEDS: PROMETHAZINE INJ 25 MG/ML (PHENERGAN) AMP IV PRN ×2 (03:12→12:13)
[2021-01-20] MEDS: diphenhydrAMINE 50 MG/ML INJ (BENADRYL) IVP PRN ×2 (03:13→12:13)
[2021-01-20 05:38] LABS: BASOPHILS # (AUTO) 0.1 10^3/uL (0.0-0.1); BASOPHILS % (AUTO) 1 % (0-10); EOSINOPHILS # (AUTO) 0.4 10^3/uL (0.0-0.3); EOSINOPHILS % (AUTO) 3 % (0-10); HEMATOCRIT 28 % (35-52); HEMOGLOBIN 8.9 g/dL (11.5-16.0); LYMPHOCYTES # (AUTO) 5.7 10^3/uL (1.0-4.0); LYMPHOCYTES % (AUTO) 47 % (12-44); MEAN CORPUSCULAR HEMOGLOBIN 30 pg (25-34); MEAN CORPUSCULAR HGB CONC 32 g/dL (32-36); MEAN CORPUSCULAR VOLUME 92 fL (80-99); MEAN PLATELET VOLUME 11.1 fL (9.0-12.2); MONOCYTES # (AUTO) 0.7 10^3/uL (0.0-1.0); MONOCYTES % (AUTO) 5 % (0-12); NEUTROPHILS # (AUTO) 5.3 10^3/uL (1.8-7.8); NEUTROPHILS % (AUTO) 44 % (42-75); PLATELET COUNT 240 10^3/uL (130-400); WHITE BLOOD COUNT 12.2 10^3/uL (4.3-11.0)
[2021-01-20 05:56] LABS: POTASSIUM 4.4 MMOL/L (3.6-5.0)
[2021-01-20 05:57] LABS: CALCIUM 7.3 MG/DL (8.5-10.1)
[2021-01-20 06:01] LABS: CREATININE SERUM 1.26 MG/DL (0.60-1.30)
[2021-01-20 06:04] LABS: MAGNESIUM 1.6 MG/DL (1.6-2.4)
[2021-01-20] MEDS: POTASSIUM CL 10MEQ/50ML IVPB 50 ML IV SCH (06:08)
[2021-01-20] MEDS: inSUlin ASPART (NovoLOG) 1 UNIT/0.01 ML (CHARGE PER UNIT) SC SCH ×2 (06:08→12:15)
[2021-01-20] MEDS: MAGNESIUM 1 GM/100 ML IVPB 100 ML IV SCH (06:08)
[2021-01-20] MEDS: KCL 20 MEQ TAB (K-DUR) PO SCH (06:08)
--- NOTE | 2021-01-20 07:39 | Progress Note - Surgery ---
CRUZ CAMPA MED STUDENT 01/20/21 0738: Subjective Date Seen by a Provider: Jan 20, 2021 Time Seen by a Provider: 07:25 Subjective/Events-last exam Patient is upright and alert in bed. State that she feels okay, pain about the same as it was yesterday. States that she has not received her pain medication but is NPO. LBM wednesday, has passed gas today. She is ambulating on her own, no PT. No swelling noted in extremities. Does complain of some nausea and pain with swallowing. ROS negative for Fever, Vomiting, abdominal pain, coughing up blood. Positive for upper esophageal discomfort. Scheduled for EGD today. Objective Exam Vital Signs Date Time Temp Pulse Resp B/P (MAP) Pulse Ox O2 Delivery O2 Flow Rate FiO2 01/20/21 07:02 Room Air 01/20/21 03:55 36.7 64 19 139/64 (89) 95 Room Air 01/20/21 02:16 92 Room Air 01/20/21 00:00 36.2 72 19 119/55 (76) 95 Room Air 01/19/21 22:14 92 Room Air 01/19/21 20:45 Room Air 01/19/21 19:56 36.8 79 19 121/58 (79) 97 Room Air 01/19/21 17:47 96 Room Air 01/19/21 16:00 37.0 79 21 143/65 (91) 93 Room Air 01/19/21 14:37 93 Room Air 01/19/21 11:33 36.6 68 20 144/65 (91) 94 Room Air 01/19/21 10:18 94 Room Air 01/19/21 09:00 Nasal Cannula 2.00 01/19/21 07:55 37.0 72 20 111/53 (72) 94 Room Air I & O 01/20/21 07:00 Intake Total 2305 ml Output Total 200 ml Balance 2105 ml Capillary Refill : Less Than 3 SecondsLess Than 3 Seconds General Appearance: No Apparent Distress, Chronically ill HEENT: Other (did not open eyes for me, mucous membranes dry) Neck: Full Range of Motion, Normal Inspection, Non Tender, Supple Respiratory: Chest Non Tender, Lungs Clear, Normal Breath Sounds, No Accessory Muscle Use, No Respiratory Distress Cardiovascular: Regular Rate, Rhythm, No Edema, No Murmur Peripheral Pulses: 2+ Dorsalis Pedis (R), 2+ Left Dors-Pedis (L), 2+ Radial Pulses (R), 2+ Radial Pulses (L) Gastrointestinal: normal bowel sounds, non tender, soft; No distended; tenderness (epigastric area, worse with palpation) Extremity: No Calf Tenderness, No Pedal Edema Neurologic/Psychiatric: Alert, Oriented x3 Skin: Warm/Dry; No Mottled; Pallor Results Lab Laboratory Tests 01/19/21 11:27: Glucometer 210H 01/19/21 16:15: Glucometer 218H 01/19/21 21:11: Glucometer 341H 01/19/21 22:52: 01/20/21 05:20: White Blood Count 12.2H, Red Blood Count 3.02L, Hemoglobin 8.9L, Hematocrit 28L, Mean Corpuscular Volume 92, Mean Corpuscular Hemoglobin 30, Mean Corpuscular Hemoglobin Concent 32, Red Cell Distribution Width 13.4, Platelet Count 240, Mean Platelet Volume 11.1, Immature Granulocyte % (Auto) 0, Neutrophils (%) (Auto) 44, Lymphocytes (%) (Auto) 47H, Monocytes (%) (Auto) 5, Eosinophils (%) (Auto) 3, Basophils (%) (Auto) 1, Neutrophils # (Auto) 5.3, Lymphocytes # (Auto) 5.7H, Monocytes # (Auto) 0.7, Eosinophils # (Auto) 0.4H, Basophils # (Auto) 0.1, Immature Granulocyte # (Auto) 0.1, Sodium Level 137, Potassium Level 4.4, Chloride Level 107, Carbon Dioxide Level 24, Anion Gap 6, Blood Urea Nitrogen 18, Creatinine 1.26, Estimat Glomerular Filtration Rate 43, BUN/Creatinine Ratio 14, Glucose Level 164H, Calcium Level 7.3L, Phosphorus Level 3.0, Magnesium Level 1.6, Beta-Hydroxybutyrate (Chem panel) 0.05 Microbiology 01/17/21 C. difficile GDH Antigen & Toxins - Final, Complete Assessment/Plan Assessment/Plan Assessment/Plan Epigastric/sternal pain GERD Hx of gastritis, esophagitis and distal esophageal stricture s/p dilation- per EGD report February 2019 poorly controlled IDDM Seizure disorder HTN, HLD, CAD Plan NPO after midnight and EGD in the am; discussed risks and complications not limited to pain, bleeding, infection and even esophageal perforation. All questions answered to her satisfaction. We will most likely do biopsies and may do dilation if necessary. Continue protonix, Pain control, glucose control, IV fluids Clinical Quality Measures Smoking Cessation Counseling: Counseling-Symptomatic: 3-10 Minutes Supervisory-Addendum Brief Verification & Attestation Participated in pt care: history, physical Personally performed: exam, history Care discussed with: other Procedures: n/a n/a WALLACE VILLEGAS DO 01/20/21 1054: Subjective Time Seen by a Provider: 10:46 Subjective/Events-last exam Pt seen and examined, states no new changes. She feels about same as yerterday. Sitll with some esophageal pain. Review of Systems General: No Chills, No Night Sweats Pulmonary: No Dyspnea, No Cough Cardiovascular: No: Chest Pain, Palpitations Gastrointestinal: No: Nausea, Vomiting Objective Exam General Appearance: No Apparent Distress, Chronically ill HEENT: Other (mucous membranes dry) Respiratory: Lungs Clear, Normal Breath Sounds, No Accessory Muscle Use, No Respiratory Distress Cardiovascular: Regular Rate, Rhythm, No Murmur Gastrointestinal: soft, no organomegaly; No distended; tenderness (epigastric area, worse with palpation) Extremity: No Calf Tenderness, No Pedal Edema Neurologic/Psychiatric: Alert, Oriented x3 Skin: Pallor Assessment/Plan Assessment/Plan Assessment/Plan Epigastric/sternal pain GERD Hx of gastritis, esophagitis and distal esophageal stricture s/p dilation- per EGD report February 2019 poorly controlled IDDM Seizure disorder HTN, HLD, CAD Plan EGD this am; pt had no new questions. We will most likely do biopsies and may do dilation if necessary. Continue protonix, Pain control, glucose control, IV fluids Supervisory-Addendum Brief Verification & Attestation Participated in pt care: history, MDM, physical Personally performed: exam, history, MDM Care discussed with: Medical Student Procedures: n/a Verification and Attestation of Medical Student E/M Service A medical student performed and documented this service. I then reviewed and verified all information documented by the medical student and made modifications to such information, when appropriate. I personally performed a physical exam, medical decision making and then discussed any differences between the notes and made revisions as necessary to create one note. Wallace Villegas , 01/20/21 , 10:53 CRUZ CAMPA MED STUDENT Jan 20, 2021 07:38 WALLACE VILLEGAS DO Jan 20, 2021 10:54
[2021-01-20] MEDS: PANTOPRAZOLE 40 MG (PROTONIX) VIAL IV SCH (09:06)
[2021-01-20] MEDS ORDERED: LACTATED RINGERS 1,000 ML IV ONE ×2 (10:43→11:15)
[2021-01-20] MEDS ORDERED: PROPOFOL INJECTION 50 ML IV ONE (10:47)
[2021-01-20] MEDS ORDERED: MIDAZOLAM 2 MG/2 ML (VERSED) VIAL ONE (10:47)
[2021-01-20 11:12] VITALS: BP 134/68
--- NOTE | 2021-01-20 11:14 | Progress Note-Post Operative ---
Post-Operative Progess Note Surgeon (s)/Metallurgical Engineering Technician (s) Surgeon ORI AYON DO Metallurgical Engineering Technician: none Pre-Operative Diagnosis Epigastric pain, Dysphagia Post-Operative Diagnosis Gastritis hiatal hernia esophageal ulcerations Procedure & Operative Findings Date of Procedure 01/20/21 Procedure Performed/Findings EGD with bx Anesthesia Type IV sedation by MIDDLEWARE ADMINISTRATOR Estimated Blood Loss Estimated blood loss (mL): scant Specimens/Packing Specimens Removed antral bx body of stomach bx GE jxn bx esophageal bx ORI AYON DO Jan 20, 2021 11:14
[2021-01-20 11:15] VITALS: BP 107/59
[2021-01-20] MEDS ORDERED: HURRICAINE EXT TUBE (BENZOCAINE) XX PRN (11:15)
--- NOTE | 2021-01-20 11:15 | Physical Therapy Progress Note ---
Therapy Progress Note Patient adamantly declined PT stating, "I'm not doing anything today because I'm in too much pain in my neck, shoulders, back, arms. I'm not getting out of this bed." PT attempted to educate patient on importance of activity for pain control,, however, patient continued to decline. RN notified. 1 ref ([id number]) KELVIN CALVO PT Jan 20, 2021 11:14
[2021-01-20 11:20] VITALS: BP 114/62
[2021-01-20 11:25] VITALS: BP 122/64
[2021-01-20 11:30] VITALS: BP 127/69
[2021-01-20] MEDS ORDERED: NS IV 500 ML 500 ML ONE (12:05)
[2021-01-20] MEDS: LEVETIRACETAM 500 MG (KEPPRA) TAB PO SCH (12:13)
[2021-01-20] MEDS: lisINopril 20 MG (PRINIVIL) TABLET PO SCH (12:13)
[2021-01-20] MEDS: meTOprolol TARTRATE 25 MG (LOPRESSOR) TABLET PO SCH (12:14)
[2021-01-20] MEDS: GABAPENTIN 400 MG (NEURONTIN) CAP PO SCH (12:15)
--- NOTE | 2021-01-20 12:34 | Anesthesia-General Post-Op ---
MAC Patient Condition Mental Status/LOC: Same as Preop Cardiovascular: Satisfactory Nausea/Vomiting: Absent Respiratory: Satisfactory Pain: Controlled Complications: Absent Post Op Complications Complications None Follow Up Care/Instructions Patient Instructions None needed. Anesthesiology Discharge Order Discharge Order Patient is doing well, no complaints, stable vital signs, no apparent adverse anesthesia problems. No complications reported per nursing. CLOVER HOLLAND CRNA Jan 20, 2021 12:34
[2021-01-20] MEDS ORDERED: PANT40TA52 PO (12:47)
--- NOTE | 2021-01-20 14:11 | Discharge Summary ---
Discharge Summary Hospital Course Problems/Dx: (1) Diabetic ketoacidosis Status: Acute Qualifiers: Qualified Codes: E10.10 - Type 1 diabetes mellitus with ketoacidosis without coma (2) Metabolic acidosis Status: Acute (3) Metabolic encephalopathy Status: Acute (4) Seizure disorder Status: Acute (5) Uncontrolled insulin dependent diabetes mellitus Status: Acute (6) Acute kidney injury Status: Acute (7) Nausea and vomiting Status: Acute Qualifiers: Qualified Codes: R11.2 - Nausea with vomiting, unspecified (8) Type 1 diabetes mellitus Status: Acute Qualifiers: Qualified Codes: E10.10 - Type 1 diabetes mellitus with ketoacidosis without coma (9) Medical non-compliance Status: Chronic (10) Hypokalemia (11) Peripheral neuropathy Status: Chronic (12) Hypomagnesemia Status: Resolved (13) Hyponatremia Status: Resolved (14) Chronic pain Status: Chronic Qualifiers: Qualified Codes: G89.4 - Chronic pain syndrome (15) DVT prophylaxis Status: Acute Hospital Course Date of Admission: Jan 16, 2021 at 06:11 Admission Diagnosis : T1DM with DKA Family Physician/Provider: Gerardo Calabrese DO Date of Discharge: 01/20/21 Discharge Diagnosis: T1DM with DKA Hospital Course: Itzel Urbano is a 60-year-old female with type I diabetes mellitus who presented with diabetic ketoacidosis. She was treated with an insulin drip and her blood sugars improved. She was resumed on her home insulin regimen. She had been nonadherent and this was the cause of her DKA. She has had multiple admissions for a similar presentation within the past year. She also had issues with nausea and vomiting which are chronic issues. She was evaluated by general surgery and they performed an EGD which revealed esophageal ulcerations but no active bleeding. She was started on pantoprazole. Her course is complicated with seizures which resolved with resuming her home antiepileptics. She was discharged home in stable condition. She should follow-up with her primary care physician within a week. Labs and Pending Lab Test: Laboratory Tests 01/19/21 16:15: Glucometer 218H 01/19/21 21:11: Glucometer 341H 01/19/21 22:52: Coronavirus (COVID-19)(PCR) [Pending] 01/20/21 05:20: White Blood Count 12.2H, Red Blood Count 3.02L, Hemoglobin 8.9L, Hematocrit 28L, Mean Corpuscular Volume 92, Mean Corpuscular Hemoglobin 30, Mean Corpuscular Hemoglobin Concent 32, Red Cell Distribution Width 13.4, Platelet Count 240, Mean Platelet Volume 11.1, Immature Granulocyte % (Auto) 0, Neutrophils (%) (Auto) 44, Lymphocytes (%) (Auto) 47H, Monocytes (%) (Auto) 5, Eosinophils (%) (Auto) 3, Basophils (%) (Auto) 1, Neutrophils # (Auto) 5.3, Lymphocytes # (Auto) 5.7H, Monocytes # (Auto) 0.7, Eosinophils # (Auto) 0.4H, Basophils # (Auto) 0.1, Immature Granulocyte # (Auto) 0.1, Sodium Level 137, Potassium Level 4.4, Chloride Level 107, Carbon Dioxide Level 24, Anion Gap 6, Blood Urea Nitrogen 18, Creatinine 1.26, Estimat Glomerular Filtration Rate 43, BUN/Creatinine Ratio 14, Glucose Level 164H, Calcium Level 7.3L, Phosphorus Level 3.0, Magnesium Level 1.6, Beta-Hydroxybutyrate (Chem panel) 0.05 01/20/21 10:47: Glucometer 213H 01/20/21 11:46: Glucometer 244H Microbiology 01/17/21 C. difficile GD Antigen & Toxins - Final, Complete Home Meds Active Pantoprazole Sodium 40 Mg Tablet.dr 40 Mg PO DAILY 30 Days Reported Novolog Flexpen (Insulin Aspart) 300 Units/3 Ml Solution Units SQ AC USES PER SLIDING SCALE Levemir Flextouch (Insulin Detemir) 100 Unit/1 Ml Insuln.pen 15 Unit SQ BID Oxycodone HCl 10 Mg Tablet 10 Mg PO Q8H PRN Metoprolol Succinate 25 Mg Tab.er.24h 25 Mg PO DAILY Atorvastatin Calcium 20 Mg Tablet 20 Mg PO HS Gabapentin 800 Mg Tablet 800 Mg PO DAILY Gabapentin 800 Mg Tablet 1,600 Mg PO HS TAKES 2 (800MG) TABLETS Assessment/Pt Instructions Take medications as prescribed. Continue to take your insulin. Begin taking pantoprazole for peptic ulcers. Follow-up with your primary care physician. Return with worsening weakness or if you feel like you're getting worse. Discharge Planning: <30 minutes discharge planning Discharge Instructions Discharge Diet: ADA Diet Activity as Tolerated: Yes Consultations Gen. surgery Discharge Physical Examination Vital Signs Vital Signs Date Time Temp Pulse Resp B/P (MAP) Pulse Ox O2 Delivery O2 Flow Rate FiO2 01/20/21 11:47 35.8 70 16 134/71 (92) 99 Room Air 01/20/21 11:20 5 General Appearance: No Apparent Distress, Chronically ill Respiratory: Lungs Clear, Normal Breath Sounds, No Respiratory Distress Cardiovascular: Regular Rate, Rhythm, No Edema, No Murmur Gastrointestinal: Normal Bowel Sounds, Non Tender, Soft Extremity: Normal Inspection, Non Tender, No Pedal Edema Skin: Normal Color, Warm/Dry Neurologic/Psychiatric: Alert, Oriented x3, No Motor/Sensory Deficits, Normal Mood/Affect Allergies: Coded Allergies: ketorolac (Verified Allergy, Severe, ANAPHYLAXIS, PT TAKES ASA AT HOME, 03/06/19) ondansetron (Verified Allergy, Intermediate, RASH, 03/06/19) RASH/ HIVES scopolamine (Verified Allergy, Mild, Rash, 03/21/19) exenatide (Verified Allergy, Unknown, NAUSEA, 03/06/19) NON STOP VOMITING latex (Verified Allergy, Unknown, RASH, 03/06/19) metoclopramide (Verified Allergy, Unknown, RESTLESS LEGS, 03/06/19) erythromycin base (Verified Adverse Reaction, Unknown, 03/21/19) Copy Copies To 1: GERARDO CALABRESE DO Discharge Summary Date of Admission Jan 16, 2021 at 06:11 Date of Discharge Discharge Date: Jan 20, 2021 Discharge Time: 14:06 Admission Diagnosis DKA Consults/Procedures Consulations general surgery Procedures EGD Discharge Diagnosis (1) Diabetic ketoacidosis Status: Acute Qualifiers: Qualified Codes: E10.10 - Type 1 diabetes mellitus with ketoacidosis without coma (2) Metabolic acidosis Status: Acute (3) Metabolic encephalopathy Status: Acute (4) Seizure disorder Status: Acute (5) Uncontrolled insulin dependent diabetes mellitus Status: Acute (6) Acute kidney injury Status: Acute (7) Nausea and vomiting Status: Acute Qualifiers: Qualified Codes: R11.2 - Nausea with vomiting, unspecified (8) Type 1 diabetes mellitus Status: Acute Qualifiers: Qualified Codes: E10.10 - Type 1 diabetes mellitus with ketoacidosis without coma (9) Medical non-compliance Status: Chronic (10) Hypokalemia (11) Peripheral neuropathy Status: Chronic (12) Hypomagnesemia Status: Resolved (13) Hyponatremia Status: Resolved (14) Chronic pain Status: Chronic Qualifiers: Qualified Codes: G89.4 - Chronic pain syndrome (15) DVT prophylaxis Status: Acute Clinical Quality Measures Smoking Cessation Counseling: Counseling-Symptomatic: 3-10 Minutes JUAN DAVID BRADSHAW MD Jan 20, 2021 14:10
[2021-01-21] MEDS ORDERED: PANTOPRAZOLE 40 MG (PROTONIX) TAB PO SCH (09:00)
--- NOTE | 2021-01-21 17:23 | OPERATIVE REPORT ---
DATE OF SERVICE: 01/20/2021 PREOPERATIVE DIAGNOSES: Dysphagia, chest pain, GERD, uncontrolled diabetes. POSTOPERATIVE DIAGNOSES: Esophageal ulcers, hiatal hernia, gastritis. PROCEDURE: EGD with biopsy. SURGEON: Wallace Villegas DO CAMERA REPAIRMAN: None. ANESTHESIA: IV sedation by the COMPRESSOR OPERATOR PORTABLE. SPECIMEN: Biopsy from the antrum, biopsy of body of stomach, biopsy from the GE junction as well as biopsy from the esophagus. BLOOD LOSS: Scant. FLUIDS: Per anesthesia. POSTOPERATIVE CONDITION: Stable. INDICATION FOR PROCEDURE: The patient is a 60-year-old female who has been complaining of some midsternal chest pain and dysphagia. Cardiac workup was negative, needed an EGD. FINDINGS: The patient had esophageal ulcers as well as ulcerations down at the GE junction, mild gastritis and a small hiatal hernia. PROCEDURE NOTE: After informed consent was obtained, the patient was brought to the endoscopy suite, placed in bed in left lateral decubitus position. She was administered IV sedation by the COMPRESSOR OPERATOR PORTABLE who then monitored her vitals the entire time, heart rate, blood pressure and pulse ox and the scope was inserted down the mouth through the esophagus into the stomach, did not see any kind of stricture. She had a history of dilation of the esophagus in the past. There were no strictures in the esophagus pushed into the stomach, mild gastritis, took a picture of this and then pushing the duodenum. Duodenum looked fine. Pulled back and did a biopsy of the antrum, retroflexed the scope, saw a small hiatal hernia and then did a biopsy of the body of stomach, pulled the scope into the GE junction, noted ulcerations and what looked like healing scabs, took pictures of this and then did biopsies from the GE junction as well as then biopsy of the ulcerations of the esophagus, suctioned all the air out of stomach and then pulled the scope up the esophagus and out the mouth. The patient tolerated the procedure and recovered in endoscopy suite. Job ID: [id number] DocumentID: [id number] Dictated Date: 01/21/2021 12:58:42 Office Support Clerk Date: 01/21/2021 17:21:40 Dictated By: WALLACE VILLEGAS DO
== END 2021-01-20 14:55 | disposition home or self-care (01) | DRG 637 ==
LOC: EDUNIT# 04:56 → ER 04:57 → ICU 06:11 → 4TH 01-17 14:36
PROVIDERS: ADMIT Internal Medicine; ATTEND Internal Medicine
PROC: 0DB78ZX Excision of Stomach, Pylorus, Via Natural or Artificial Opening Endoscopic, Diagnostic (ICD-10-PCS; 2021-01-20)
PROC: 0DB68ZX Excision of Stomach, Via Natural or Artificial Opening Endoscopic, Diagnostic (ICD-10-PCS; 2021-01-20)
PROC: 0DB48ZX Excision of Esophagogastric Junction, Via Natural or Artificial Opening Endoscopic, Diagnostic (ICD-10-PCS; 2021-01-20)
PROC: 0DB58ZX Excision of Esophagus, Via Natural or Artificial Opening Endoscopic, Diagnostic (ICD-10-PCS; principal; 2021-01-20 11:00)
DX: E10.10 Type 1 diabetes mellitus with ketoacidosis without coma (principal); G93.41 Metabolic encephalopathy; N17.9 Acute kidney failure, unspecified; K22.10 Ulcer of esophagus without bleeding; E87.1 Hypo-osmolality and hyponatremia; J42 Unspecified chronic bronchitis; K29.70 Gastritis, unspecified, without bleeding; Z20.822 Contact with and (suspected) exposure to COVID-19; G47.30 Sleep apnea, unspecified; K44.9 Diaphragmatic hernia without obstruction or gangrene; I12.9 Hypertensive chronic kidney disease with stage 1 through stage 4 chronic kidney disease, or unspecified chronic kidney disease; E10.22 Type 1 diabetes mellitus with diabetic chronic kidney disease; N18.9 Chronic kidney disease, unspecified; E10.42 Type 1 diabetes mellitus with diabetic polyneuropathy; E10.43 Type 1 diabetes mellitus with diabetic autonomic (poly)neuropathy; K31.84 Gastroparesis; E78.00 Pure hypercholesterolemia, unspecified; K21.9 Gastro-esophageal reflux disease without esophagitis; K57.90 Diverticulosis of intestine, part unspecified, without perforation or abscess without bleeding; K58.9 Irritable bowel syndrome, unspecified; M79.7 Fibromyalgia; G89.29 Other chronic pain; G40.909 Epilepsy, unspecified, not intractable, without status epilepticus; E87.6 Hypokalemia; E83.42 Hypomagnesemia; I25.10 Atherosclerotic heart disease of native coronary artery without angina pectoris; E10.65 Type 1 diabetes mellitus with hyperglycemia; L40.9 Psoriasis, unspecified; F17.210 Nicotine dependence, cigarettes, uncomplicated; H54.3 Unqualified visual loss, both eyes; H91.90 Unspecified hearing loss, unspecified ear; F41.9 Anxiety disorder, unspecified; Z86.718 Personal history of other venous thrombosis and embolism; Z79.4 Long term (current) use of insulin; Z95.5 Presence of coronary angioplasty implant and graft; Z91.19 Patient's noncompliance with other medical treatment and regimen; Z79.82 Long term (current) use of aspirin; Z79.891 Long term (current) use of opiate analgesic; Z79.52 Long term (current) use of systemic steroids; Z88.1 Allergy status to other antibiotic agents; Z83.3 Family history of diabetes mellitus; Z82.49 Family history of ischemic heart disease and other diseases of the circulatory system; Z23 Encounter for immunization
CPT/HCPCS: 36415; 36569; 76937; 80048; 80053; 80306; 81000; 82010; 82140; 82805; 82962; 83036; 83690; 83735; 84100; 84484; 85007; 85025; 85027; 86141; 87081; 87324; 87449; 87635; 88305; 88312; 90686; 93005; 93041; 94760; 96374; 96375; 96376

== ENCOUNTER 2021-04-09 19:39 | Inpatient (IN) | payer MEDICARE ==
[~2021-04-09] VITALS: Ht 152.4 cm; Wt 58.7 kg
[~2021-04-09 19:39] MED LIST changes: +PANT40TA52 PO
[2021-04-09] MEDS ORDERED: PROMETHAZINE INJ 25 MG/ML (PHENERGAN) AMP IVP ONE (19:45)
[2021-04-09] MEDS ORDERED: NS IV 1000 ML 1,000 ML IV SCH ×2 (19:45→22:45)
[2021-04-09 19:54] LABS: BASOPHILS # (AUTO) 0.1 10^3/uL (0.0-0.1); BASOPHILS % (AUTO) 0 % (0-10); EOSINOPHILS % (AUTO) 0 % (0-10); HEMATOCRIT 33 % (35-52); HEMOGLOBIN 11.1 g/dL (11.5-16.0); LYMPHOCYTES # (AUTO) 2.2 10^3/uL (1.0-4.0); LYMPHOCYTES % (AUTO) 15 % (12-44); MEAN CORPUSCULAR HEMOGLOBIN 28 pg (25-34); MEAN CORPUSCULAR HGB CONC 33 g/dL (32-36); MEAN CORPUSCULAR VOLUME 85 fL (80-99); MONOCYTES # (AUTO) 0.8 10^3/uL (0.0-1.0); MONOCYTES % (AUTO) 6 % (0-12); NEUTROPHILS # (AUTO) 11.2 10^3/uL (1.8-7.8); NEUTROPHILS % (AUTO) 79 % (42-75); PLATELET COUNT 270 10^3/uL (130-400); WHITE BLOOD COUNT 14.3 10^3/uL (4.3-11.0)
--- NOTE | 2021-04-09 19:55 | ED GI ---
General Stated Complaint: CONFUSION Source of Information: Patient, EMS Exam Limitations: No Limitations History of Present Illness Date Seen by Provider: April 09, 2021 Time Seen by Provider: 19:35 Initial Comments Patient arrives to the ER by EMS from home after her [id number] called stating she was confused. EMS arrived on scene and said that her blood sugar read high. She was oriented x4. She had a continuous glucose monitor which was not reading correctly. She states she has been taking her insulin normally and for the past couple days has had nausea and vomiting. She is not had any dysuria fever chills cough shortness of air or sick contacts that she is aware of. Do not have any chest pain or shortness of air. She just discharged from the hospital a little over a month ago for diabetic ketoacidosis related to her type 1 diabetes. Allergies and Home Medications Allergies Coded Allergies: ketorolac (Verified Allergy, Severe, ANAPHYLAXIS, PT TAKES ASA AT HOME, 03/06/19) ondansetron (Verified Allergy, Intermediate, RASH, 03/06/19) RASH/ HIVES scopolamine (Verified Allergy, Mild, Rash, 03/21/19) exenatide (Verified Allergy, Unknown, NAUSEA, 03/06/19) NON STOP VOMITING latex (Verified Allergy, Unknown, RASH, 03/06/19) metoclopramide (Verified Allergy, Unknown, RESTLESS LEGS, 03/06/19) erythromycin base (Verified Adverse Reaction, Unknown, 03/21/19) Home Medications Atorvastatin Calcium 20 Mg Tablet, 20 MG PO HS, (Reported) Gabapentin 800 Mg Tablet, 1,600 MG PO HS, (Reported) TAKES 2 (800MG) TABLETS Gabapentin 800 Mg Tablet, 800 MG PO DAILY, (Reported) Insulin Aspart 300 Units/3 Ml Solution, UNITS SQ AC, (Reported) USES PER SLIDING SCALE Insulin Detemir 100 Unit/1 Ml Insuln.pen, 15 UNIT SQ BID, (Reported) Metoprolol Succinate 25 Mg Tab.er.24h, 25 MG PO DAILY, (Reported) Oxycodone HCl 10 Mg Tablet, 10 MG PO Q8H PRN for PAIN-SEVERE (8-10), (Reported) Pantoprazole Sodium 40 Mg Tablet.dr, 40 MG PO DAILY Prescribed by: JUAN DAVID BRADSHAW on 01/20/21 1247 Patient Home Medication List Home Medication List Reviewed: Yes Review of Systems Review of Systems Constitutional: No chills, No diaphoresis EENTM: No Blurred Vision, No Double Vision Respiratory: Denies Cough, Denies Shortness of Air Cardiovascular: Denies Chest Pain, Denies Lightheadedness Gastrointestinal: See HPI; Denies Abdominal Pain, Denies Constipated, Denies Diarrhea; Nausea, Poor Fluid Intake, Vomiting Genitourinary: Denies Burning, Denies Drainage Musculoskeletal: No back pain, No joint pain Psychiatric/Neurological: Denies Anxiety, Denies Depressed All Other Systems Reviewed Negative Unless Noted: Yes Past Lponvuf-Qyeyiz-Bnfooe Hx Patient Social History Alcohol Beverage of Choice: Wine Drug of Choice: NARCOTIC ABUSE Type Used: Cigarettes 2nd Hand Smoke Exposure: No Recent Hopitalizations: Yes Immunizations Up To Date Tetanus Booster (TDap): Unknown PED Vaccines UTD: No Date of Pneumonia Vaccine: Nov 06, 2019 Date of Influenza Vaccine: Nov 22, 2019 Seasonal Allergies Seasonal Allergies: Yes Past Medical History Surgeries: Yes (EGD and colonoscopy) Cardiac, Coronary Stent, Ear Surgery, Gallbladder, Orthopedic, Renal Respiratory: Yes Chronic Bronchitis, Sleep Apnea Currently Using CPAP: No Currently Using BIPAP: No Cardiac: Yes (DVT'S IN ARMS; CARDIAC STENT X 1; CAROTID DISEASE;LINQ DEVICE) Chronic Edema/Swelling, Coronary Artery Disease, Deep Vein Thrombosis, High Cholesterol, Hypertension, Palpitations Neurological: Yes (NEUROPATHY IN HANDS AND FEET) Headaches /Migraines, Neuropathy 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 Disorders: No 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 Disorders: Denies 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 Sexually Transmitted Disease: No HIV/AIDS: No Genitourinary: Yes Bladder Infection, Kidney Stones, Renal Failure Gastrointestinal: Yes Gastroesophageal Reflux Musculoskeletal: Yes (CHRONIC GENERALIZED PAIN;CHRONIC BILAT SHOULDER PAIN;CHRONIC NECK PAIN ) Degenerate Disk Disease, Fibromyalgia, Chronic Back Pain Endocrine: Yes (NON-COMPLAINT;MULTIPLE EPISODES OF DKA-EASILY CONTROLLED ON IN SULIN IN HOSP) Diabetes, Insulin dep HEENT: Yes (GLASSES; S/P BMT'S;BILAT CATARACT SURGERY 10/2020) Cataract, Chronic Ear Infection Loss of Vision: Bilateral Hearing Impairment: Hard of Hearing Cancer: No Psychosocial: Yes Anxiety Integumentary: Yes Psoriasis Blood Disorders: No Adverse Reaction/Blood Tranf: No Family Medical History Cancer of mouth 19 FATHER ( of esophogeal cancer.) Cardiovascular disease 19 MOTHER G8 BROTHER Completed stroke 19 FATHER G8 BROTHER Diabetes mellitus G8 BROTHER FH: lung cancer 19 MOTHER Hypertension 19 FATHER Kidney disease 19 FATHER Myocardial infarction 19 MOTHER G8 BROTHER Respiratory disorder No Family History of: AIDS Cancer, Diabetes, Hypertension SOCIAL HISTORY: -ETOH--RARELY USES -DRUGS--NARCOTIC ABUSE -SMOKES 1 PPD PSH: -LINQ DEVICE PLACED 11/09/19 FOR REPORTED PALPITATIONS X 6 MONTHS, SINCE PERCOCET WAS DC'D -MULTIPLE CARDIAC CATHS--STENT X 1 TO LAD 07/13/15. LAST CATH 01/18/19--NO INTERVENTION -LUMBAR SPINE FUSION X 3--12/2002, 04/2007, AND 05/2007 -LUMBAR DISCECTOMY 10/2000--? LAMINECTOMY? -CERVICAL SPINE FUSION 11/2006 -CHOLECYSTECTOMY 1983 -BMT'S -LITHOTRIPSY AND RIGHT URETERAL STENT -EGD'S WITH ESOPHAGEAL DILATIONS -COLONOSCOPIES, LAST ONE 03/08/19 -PORT RIGHT CHEST -LEFT SHOULDER ROTATOR CUFF REPAIR 05/01/20--DR. PALACIOS -CONTINUOUS GLUCOSE MONITOR PRESENT 06/25/20--LLQ OF ABDOMEN--NOT PRESENT 10/2020 -BILATERAL CATARACT SURGERY 10/2020 Physical Exam Vital Signs Capillary Refill : Height/Weight/BMI Height: 5'1.00" Weight: 122lbs. 1.0oz. 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 as tested, no motor/sensory deficits, alert, normal mood/affect, oriented x 3 Skin: normal color, warm/dry Procedures/Interventions Date of ETT Placement: Dec 30, 2019 Time of ETT Placement: 0750 Progress/Results/Core Measures Results/Orders Lab Results Laboratory Tests Test 04/09/21 19:45 04/09/21 19:47 04/09/21 20:22 Range/Units Sodium Level 126 L 135-145 MMOL/L Potassium Level 4.0 3.6-5.0 MMOL/L Chloride Level 93 L 98-107 MMOL/L Carbon Dioxide Level 19 L 21-32 MMOL/L Anion Gap 14 5-14 MMOL/L Blood Urea Nitrogen 39 H 7-18 MG/DL Creatinine 1.81 H 0.60-1.30 MG/DL Estimat Glomerular Filtration Rate 28 BUN/Creatinine Ratio 22 Calcium Level 7.9 L 8.5-10.1 MG/DL Corrected Calcium 8.4 L 8.5-10.1 MG/DL Total Bilirubin 0.7 0.1-1.0 MG/DL Aspartate Amino Transf (AST/SGOT) 10 5-34 U/L Alanine Aminotransferase (ALT/SGPT) 12 0-55 U/L Alkaline Phosphatase 132 40-136 U/L C-Reactive Protein High Sensitivity 0.30 0.00-0.50 MG/DL Total Protein 6.4 6.4-8.2 GM/DL Albumin 3.4 3.2-4.5 GM/DL White Blood Count 14.3 H 4.3-11.0 10^3/uL Red Blood Count 3.91 3.80-5.11 10^6/uL Hemoglobin 11.1 L 11.5-16.0 g/dL Hematocrit 33 L 35-52 % Mean Corpuscular Volume 85 80-99 fL Mean Corpuscular Hemoglobin 28 25-34 pg Mean Corpuscular Hemoglobin Concent 33 32-36 g/dL Red Cell Distribution Width 13.2 10.0-14.5 % Platelet Count 270 130-400 10^3/uL Mean Platelet Volume 11.0 9.0-12.2 fL Immature Granulocyte % (Auto) 0 % Neutrophils (%) (Auto) 79 H 42-75 % Lymphocytes (%) (Auto) 15 12-44 % Monocytes (%) (Auto) 6 0-12 % Eosinophils (%) (Auto) 0 0-10 % Basophils (%) (Auto) 0 0-10 % Neutrophils # (Auto) 11.2 H 1.8-7.8 10^3/uL Lymphocytes # (Auto) 2.2 1.0-4.0 10^3/uL Monocytes # (Auto) 0.8 0.0-1.0 10^3/uL Eosinophils # (Auto) 0.0 0.0-0.3 10^3/uL Basophils # (Auto) 0.1 0.0-0.1 10^3/uL Immature Granulocyte # (Auto) 0.1 0.0-0.1 10^3/uL Neutrophils % (Manual) 81 % Lymphocytes % (Manual) 14 % Monocytes % (Manual) 4 % Band Neutrophils 1 % Microcytosis SLIGHT Urine Color YELLOW Urine Clarity CLEAR Urine pH 6.0 5-9 Urine Specific [place] 1.015 L 1.016-1.022 Urine Protein 3+ H NEGATIVE Urine Glucose (UA) 3+ H NEGATIVE Urine Ketones TRACE H NEGATIVE Urine Nitrite NEGATIVE NEGATIVE Urine Bilirubin NEGATIVE NEGATIVE Urine Urobilinogen 0.2 < = 1.0 MG/DL Urine Leukocyte Esterase TRACE H NEGATIVE Urine RBC (Auto) 1+ H NEGATIVE Urine RBC NONE /HPF Urine WBC 0-2 /HPF Urine Crystals NONE /LPF Urine Bacteria FEW H /HPF Urine Casts NONE /LPF Urine Mucus NEGATIVE /LPF Urine Culture Indicated NO My Orders Orders - LATANYA HOLLINGSWORTH Ed Iv/Invasive Line Start (04/09/21 19:45) Ns Iv 1000 Ml (Sodium Chloride 0.9%) (04/09/21 19:45) Ua Culture If Indicated (04/09/21 19:45) Cbc With Automated Diff (04/09/21 19:45) Comprehensive Metabolic Panel (04/09/21 19:45) Hs C Reactive Protein (04/09/21 19:45) Chest 1 View, Ap/Pa Only (04/09/21 19:45) Promethazine Injection (Phenergan Injec (04/09/21 19:45) Accucheck Stat ONCE (04/09/21 19:49) Labetalol Injection (Normodyne Injection (04/09/21 20:15) Manual Differential (04/09/21 19:47) Medications Given in ED Current Medications Medications Dose Ordered Sig/Jackie Route Start Time Stop Time Status Last Admin Dose Admin Labetalol HCl 20 mg ONCE ONCE IV 04/09/21 20:15 04/09/21 20:16 DC 04/09/21 20:21 20 MG Promethazine HCl 25 mg ONCE ONCE IVP 04/09/21 19:45 04/09/21 19:50 DC 04/09/21 20:29 25 MG Progress Progress Note : Time: 19:54 Progress Note Plan to start her on a second liter of fluids in addition to the 1 L of fluids that EMS began. Phenergan for nausea. We will get some labs and urine and look for evidence of diabetic ketoacidosis. Based on her history we will treat this after we get her labs. Chest x-ray will also help us look for evidence of infe ction however she does not have any history pointing to a pneumonia. Diagnostic Imaging Diagonstic Imaging: Xray Plain Films/CT/US/NM/MRI: chest Comments Unremarkable 1 view chest x-ray without acute findings. NAME: VALENTE HARPER [facility] REC#: [id number] PT STATUS: REG ER : 1960 PHYSICIAN: LATANYA HOLLINGSWORTH MD ADMIT DATE: 04/09/21/ER Draft Date of Exam:04/09/21 CHEST 1 VIEW, AP/PA ONLY INDICATION: Confusion. EXAMINATION: Portable erect AP chest at 8:44 p.m. FINDINGS: The heart is stable in size when compared to the prior exam of 11/12/2020. The loop recorder device, the central venous catheter on the right and the orthopedic plate and screw fixation device overlying the cervicothoracic junction, seen previously, are also again evident and no different. The lungs remain clear. There is still no sign of failure, pneumonia or a pleural effusion to indicate an acute abnormality. The mediastinum is not widened. The osseous structures are intact. IMPRESSION: There is no evidence for active disease. Dictated on workstation # [id number] Dict: 04/09/212100 Trans: 04/09/212106 [facility] [id number] Interpreted by: BLANE PARKS MD Electronically signed by: Reviewed: Reviewed by Me Departure Communication (Admissions) Time/Spoke to Admitting Phy: 20:45 Discussed the case with Dr. Thurman and he agrees to admit the patient to the ICU on her baseline pain medicines, insulin drip and care for diabetic ketoacidosis Impression Primary Impression: Diabetic ketoacidosis Qualified Codes: E10.10 - Type 1 diabetes mellitus with ketoacidosis without coma Additional Impression: Hyponatremia Disposition: ADMITTED INPATIENT Condition: Stable Admissions Decision to Admit Reason: Admit from ER (General) Decision to Admit/Date: April 09, 2021 Time/Decision to Admit Time: 20:00 Departure-Patient Inst. Referrals: CINDY CALABRESE DO (PCP/Family) Primary Care Physician LATANYA HOLLINGSWORTH April 09, 2021 19:55
[2021-04-09 20:10] LABS: ALBUMIN 3.4 GM/DL (3.2-4.5)
[2021-04-09 20:12] LABS: CALCIUM 7.9 MG/DL (8.5-10.1)
[2021-04-09 20:13] LABS: TOTAL PROTEIN 6.4 GM/DL (6.4-8.2)
[2021-04-09 20:15] LABS: BILIRUBIN,TOTAL 0.7 MG/DL (0.1-1.0)
[2021-04-09] MEDS ORDERED: LABETALOL HCL 20 MG/4 ML VIAL IV ONE (20:15)
[2021-04-09 20:17] LABS: CREATININE SERUM 1.81 MG/DL (0.60-1.30)
[2021-04-09 20:28] LABS: BILIRUBIN,URINE NEGATIVE (NEGATIVE); CLARITY,URINE CLEAR; COLOR,URINE YELLOW; GLUCOSE, URINE (UA) 3+ (NEGATIVE); KETONES,URINE TRACE (NEGATIVE); LEUKOCYTE ESTERASE ,URINE TRACE (NEGATIVE); NITRITE,URINE NEGATIVE (NEGATIVE); PROTEIN,URINE 3+ (NEGATIVE)
[2021-04-09 20:38] LABS: BACTERIA,URINE FEW /HPF; WBC,URINE 0-2 /HPF
[2021-04-09 20:45] LABS: BAND NEUTROPHILS 1 %; LYMPHOCYTES % (MANUAL) 14 %; MICROCYTOSIS SLIGHT; MONOCYTES % (MANUAL) 4 %; NEUTROPHILS % (MANUAL) 81 %
--- NOTE | 2021-04-09 21:07 | Diagnostic Imaging Report ---
INDICATION: Confusion. EXAMINATION: Portable erect AP chest at 8:44 p.m. FINDINGS: The heart is stable in size when compared to the prior exam of 11/12/2020. The loop recorder device, the central venous catheter on the right and the orthopedic plate and screw fixation device overlying the cervicothoracic junction, seen previously, are also again evident and no different. The lungs remain clear. There is still no sign of failure, pneumonia or a pleural effusion to indicate an acute abnormality. The mediastinum is not widened. The osseous structures are intact. IMPRESSION: There is no evidence for active disease. Dictated by: Dictated on workstation # [id number]
[2021-04-09] MEDS ORDERED: inSUlin (REGULAR) HUMAN 1 UNIT/0.01 ML (CHARGE PER UNIT) IV ONE (21:45)
[2021-04-09] MEDS ORDERED: oxyCODONE/APAP 5/325MG (PERCOCET 5) TABLET PO ONE (22:00)
[2021-04-09] MEDS ORDERED: POTASSIUM CL 10MEQ/50ML IVPB 50 ML IV ONE (22:12)
[2021-04-09] MEDS ORDERED: D5 1/2 NS 1000 ML IV SOLUTION 1,000 ML IV ONE (22:12)
[2021-04-09] MEDS ORDERED: 1/2 NS IV SOLUTION 1,000 ML IV ONE (22:12)
[2021-04-09] MEDS ORDERED: NS IV PRN ×2 (22:30)
[2021-04-09] MEDS ORDERED: LABETALOL IV PRN ×2 (22:30)
[2021-04-09] MEDS ORDERED: D5 1/2 NS 1000 ML IV SOLUTION 1,000 ML IV SCH (22:45)
[2021-04-09] MEDS: 1/2 NS IV SOLUTION 1,000 ML IV SCH (22:51)
[2021-04-09] MEDS: POTASSIUM CL 10MEQ/50ML IVPB 50 ML IV SCH (22:52)
[2021-04-09] MEDS: PROMETHAZINE INJ 25 MG/ML (PHENERGAN) AMP IVP PRN (23:02)
[2021-04-09] MEDS: hydrALAZINE (APESOLINE) 20 MG/ML VIAL IV PRN (23:02)
[2021-04-09] MEDS: fentaNYL INJ 100 MCG/2 ML AMP IVP PRN (23:02)
[2021-04-09 23:28] LABS: POTASSIUM 3.1 MMOL/L (3.6-5.0)
[2021-04-09 23:29] LABS: CALCIUM 7.3 MG/DL (8.5-10.1)
[2021-04-09 23:33] LABS: CREATININE SERUM 1.67 MG/DL (0.60-1.30)
[2021-04-10] MEDS: POTASSIUM CL 10MEQ/50ML IVPB 50 ML IV SCH ×10 (00:13→07:56)
[2021-04-10 01:12] LABS: POTASSIUM 3.1 MMOL/L (3.6-5.0)
[2021-04-10 01:13] LABS: CALCIUM 7.5 MG/DL (8.5-10.1)
[2021-04-10 01:17] LABS: CREATININE SERUM 1.53 MG/DL (0.60-1.30)
[2021-04-10] MEDS: 1/2 NS IV SOLUTION 1,000 ML IV SCH ×6 (02:14→20:26)
[2021-04-10 03:09] LABS: BASOPHILS # (AUTO) 0.1 10^3/uL (0.0-0.1); BASOPHILS % (AUTO) 1 % (0-10); EOSINOPHILS % (AUTO) 0 % (0-10); HEMATOCRIT 30 % (35-52); HEMOGLOBIN 10.3 g/dL (11.5-16.0); LYMPHOCYTES # (AUTO) 3.9 10^3/uL (1.0-4.0); LYMPHOCYTES % (AUTO) 23 % (12-44); MEAN CORPUSCULAR HEMOGLOBIN 29 pg (25-34); MEAN CORPUSCULAR HGB CONC 35 g/dL (32-36); MEAN CORPUSCULAR VOLUME 82 fL (80-99); MEAN PLATELET VOLUME 10.2 fL (9.0-12.2); MONOCYTES # (AUTO) 1.2 10^3/uL (0.0-1.0); MONOCYTES % (AUTO) 7 % (0-12); NEUTROPHILS # (AUTO) 11.9 10^3/uL (1.8-7.8); NEUTROPHILS % (AUTO) 69 % (42-75); PLATELET COUNT 273 10^3/uL (130-400); WHITE BLOOD COUNT 17.2 10^3/uL (4.3-11.0)
[2021-04-10 03:27] LABS: POTASSIUM 3.2 MMOL/L (3.6-5.0)
[2021-04-10 03:28] LABS: CALCIUM 7.7 MG/DL (8.5-10.1)
[2021-04-10 03:32] LABS: PHOSPHORUS 2.6 MG/DL (2.3-4.7)
[2021-04-10 03:33] LABS: CREATININE SERUM 1.32 MG/DL (0.60-1.30)
[2021-04-10 03:35] LABS: MAGNESIUM 1.3 MG/DL (1.6-2.4)
[2021-04-10] MEDS: fentaNYL INJ 100 MCG/2 ML AMP IVP PRN (03:37)
[2021-04-10] MEDS: MAGNESIUM 1 GM/100 ML IVPB 100 ML IV SCH ×5 (04:05→07:28)
[2021-04-10] MEDS: KCL 20 MEQ TAB (K-DUR) PO SCH (04:05)
--- NOTE | 2021-04-10 04:35 | Pulmonary Consultation ---
SHELLEY NGO MED STUDENT 04/10/21 0435: History of Present Illness History of Present Illness Date Seen by Provider: April 10, 2021 Time Seen by Provider: 04:34 Date of Admission History of Present Illness Patient arrives to the ER by EMS from home after her [id number] called stating she was confused. EMS arrived on scene and said that her blood sugar read high. She was oriented x4. She had a continuous glucose monitor which was not reading correctly. She states she has been taking her insulin normally and for the past couple days has had nausea and vomiting. She is not had any dysuria fever chills cough shortness of air or sick contacts that she is aware of. Do not have any chest pain or shortness of air. She just discharged from the hospital a little over a month ago for diabetic ketoacidosis related to her type 1 diabetes. Patient presented to the ED yesterday evening from home via EMS. Her [id number] had called and stated that she seemed confused. Per ED report she was Alert and oriented x 4 upon arrival. EMS checked blood sugar and it was elevated. Patient reports that she began having nausea and vomiting that started on Wednesday this week. She said nothing makes it better or worse. She did not take anything to help with the nausea and vomiting. Denies chest pain, SOB, nausea, vomiting, headache, fevers and chills. States she was recently in the hospital for DKA but unsure of the dates. Allergies and Home Medications Allergies Coded Allergies: ketorolac (Verified Allergy, Severe, ANAPHYLAXIS, PT TAKES ASA AT HOME, 03/06/19) ondansetron (Verified Allergy, Intermediate, RASH, 03/06/19) RASH/ HIVES scopolamine (Verified Allergy, Mild, Rash, 03/21/19) exenatide (Verified Allergy, Unknown, NAUSEA, 03/06/19) NON STOP VOMITING latex (Verified Allergy, Unknown, RASH, 03/06/19) metoclopramide (Verified Allergy, Unknown, RESTLESS LEGS, 03/06/19) erythromycin base (Verified Adverse Reaction, Unknown, 03/21/19) Home Medications Atorvastatin Calcium 20 Mg Tablet, 20 MG PO HS, (Reported) Gabapentin 800 Mg Tablet, 1,600 MG PO HS, (Reported) TAKES 2 (800MG) TABLETS Gabapentin 800 Mg Tablet, 800 MG PO TID, (Reported) Insulin Aspart 300 Units/3 Ml Solution, UNITS SQ AC, (Reported) USES PER SLIDING SCALE Insulin Detemir 100 Unit/1 Ml Insuln.pen, 15 UNIT SQ BID, (Reported) Metoprolol Succinate 25 Mg Tab.er.24h, 25 MG PO DAILY, (Reported) Oxycodone HCl 10 Mg Tablet, 15 MG PO QID PRN for PAIN-SEVERE (8-10), (Reported) Pantoprazole Sodium 40 Mg Tablet.dr, 40 MG PO DAILY Prescribed by: JUAN DAVID BRADSHAW on 01/20/21 1247 Past Ngoznhz-Gudsgp-Vmbpnd Hx Patient Social History Alcohol Use: Denies Use Number of Drinks Today: Alcohol Beverage of Choice: Wine Drug of Choice: NARCOTIC ABUSE Smoking Status: Current Everyday Smoker Type Used: Cigarettes Former Smoker, Quit: Nov 10, 2017 2nd Hand Smoke Exposure: No Recent Infectious Disease Expo: No Recent Hopitalizations: Yes Have you traveled recently?: No Alcohol Use?: No Immunizations Up To Date Tetanus Booster (TDap): Unknown PED Vaccines UTD: No Date of Pneumonia Vaccine: Nov 06, 2019 Date of Influenza Vaccine: Nov 22, 2019 Seasonal Allergies Seasonal Allergies: Yes Past Medical History Surgeries: Yes (EGD and colonoscopy) Cardiac, Coronary Stent, Ear Surgery, Gallbladder, Orthopedic, Renal Respiratory: Yes Chronic Bronchitis, Sleep Apnea Currently Using CPAP: No Currently Using BIPAP: No Cardiac: Yes (DVT'S IN ARMS; CARDIAC STENT X 1; CAROTID DISEASE;LINQ DEVICE) Chronic Edema/Swelling, Coronary Artery Disease, Deep Vein Thrombosis, High Cholesterol, Hypertension, Palpitations Neurological: Yes (NEUROPATHY IN HANDS AND FEET) Headaches /Migraines, Neuropathy 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 Disorders: No 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 Sexually Transmitted Disease: No HIV/AIDS: No Genitourinary: Yes Bladder Infection, Kidney Stones, Renal Failure Gastrointestinal: Yes Gastroesophageal Reflux Musculoskeletal: Yes (CHRONIC GENERALIZED PAIN;CHRONIC BILAT SHOULDER PAIN;CHRONIC NECK PAIN ) Degenerate Disk Disease, Fibromyalgia, Chronic Back Pain Endocrine: Yes (NON-COMPLAINT;MULTIPLE EPISODES OF DKA-EASILY CONTROLLED ON INSULIN IN HOSP) Diabetes, Insulin dep HEENT: Yes (GLASSES; S/P BMT'S;BILAT CATARACT SURGERY 10/2020) Cataract, Chronic Ear Infection Loss of Vision: Bilateral Hearing Impairment: Hard of Hearing Cancer: No Psychosocial: Yes Anxiety Integumentary: Yes Psoriasis Blood Disorders: No Adverse Reaction/Blood Tranf: No Family Medical History Cancer of mouth 19 FATHER ( of esophogeal cancer.) Cardiovascular disease 19 MOTHER G8 BROTHER Completed stroke 19 FATHER G8 BROTHER Diabetes mellitus G8 BROTHER FH: lung cancer 19 MOTHER Hypertension 19 FATHER Kidney disease 19 FATHER Myocardial infarction 19 MOTHER G8 BROTHER Respiratory disorder No Family History of: AIDS Cancer, Diabetes, Hypertension SOCIAL HISTORY: -ETOH--RARELY USES -DRUGS--NARCOTIC ABUSE -SMOKES 1 PPD PSH: -LINQ DEVICE PLACED 11/09/19 FOR REPORTED PALPITATIONS X 6 MONTHS, SINCE PERCOCET WAS DC'D -MULTIPLE CARDIAC CATHS--STENT X 1 TO LAD 07/13/15. LAST CATH 01/18/19--NO INTERVENTION -LUMBAR SPINE FUSION X 3--12/2002, 04/2007, AND 05/2007 -LUMBAR DISCECTOMY 10/2000--? LAMINECTOMY? -CERVICAL SPINE FUSION 11/2006 -CHOLECYSTECTOMY 1983 -BMT'S -LITHOTRIPSY AND RIGHT URETERAL STENT -EGD'S WITH ESOPHAGEAL DILATIONS -COLONOSCOPIES, LAST ONE 03/08/19 -PORT RIGHT CHEST -LEFT SHOULDER ROTATOR CUFF REPAIR 05/01/20--DR. PALACIOS -CONTINUOUS GLUCOSE MONITOR PRESENT 06/25/20--LLQ OF ABDOMEN--NOT PRESENT 10/2020 -BILATERAL CATARACT SURGERY 10/2020 Review of Systems Date Seen by Provider: April 10, 2021 Time Seen by Provider: 04:41 Constitutional: No: Fever, Chills Eyes: No: Pain, Vision change ENT: No: Ear pain, Nose pain, Mouth pain Respiratory: No: Cough, Shortness of breath Cardiovascular: No: Chest Pain, Palpitations Gastrointestinal: No: Nausea, Vomiting, Abdominal Pain Genitourinary: No Dysuria, No Frequency Musculoskeletal: No: neck pain, back pain Skin: No: Rash, Lesions Neurological: No: Weakness, Numbness Sepsis Event Evaluation Height, Weight, BMI Height: 5'1.00" Weight: 122lbs. 1.0oz. 55.491040ju; 24.67 BMI Method:Estimated Exam Exam Vital Signs Date Time Temp Pulse Resp B/P (MAP) Pulse Ox O2 Delivery O2 Flow Rate FiO2 04/10/21 04:00 70 18 176/78 (110) 99 Room Air 04/10/21 03:40 36.2 Room Air 04/10/21 03:40 99 Room Air 04/10/21 03:30 70 11 158/67 (97) 98 Room Air 04/10/21 03:00 69 11 172/78 (109) 99 Room Air 04/10/21 02:00 70 9 177/82 (113) 98 Room Air 04/10/21 01:00 72 8 189/90 (123) 100 Room Air 04/10/21 01:00 72 04/10/21 00:00 69 13 126/67 (106) 98 Room Air 04/09/21 23:55 36.7 Room Air 04/09/21 23:45 72 14 161/72 (103) 98 Room Air 04/09/21 23:40 100 Room Air 04/09/21 23:30 81 18 186/92 (133) 99 Room Air 04/09/21 23:15 86 26 190/90 (125) 99 Room Air 04/09/21 23:00 88 17 143/88 (106) 100 Room Air 04/09/21 22:45 85 9 191/148 (162) 99 Room Air 04/09/21 22:30 86 25 189/102 (131) 100 Room Air 04/09/21 22:16 36.8 87 24 192/92 (125) 99 Room Air 04/09/21 22:16 99 Room Air 04/09/21 22:15 87 20 194/79 98 Room Air 04/09/21 19:40 35.5 91 18 204/105 (138) 98 Room Air I & O 04/10/21 07:00 Intake Total 6500 ml Output Total 550 ml Balance 5950 ml Height & Weight Height: 5'1.00" Weight: 122lbs. 1.0oz. 55.150786dv; 24.67 BMI Method:Estimated General Appearance: No Apparent Distress, Chronically ill HEENT: PERRL/EOMI, Pharynx Normal, Pale Conjunctivae (L), Other (poor dentition) Neck: Full Range of Motion, Normal Inspection, Non Tender, Supple Respiratory: Chest Non Tender, Lungs Clear, Normal Breath Sounds, No Accessory Muscle Use, No Respiratory Distress Cardiovascular: Regular Rate, Rhythm, No Edema, Normal Peripheral Pulses Capillary Refill: Less Than 3 Seconds Peripheral Pulses: 2+ Dorsalis Pedis (R), 2+ Left Dors-Pedis (L), 2+ Radial Pulses (R), 2+ Radial Pulses (L) Gastrointestinal: normal bowel sounds, non tender, soft; No distended, No guarding, No rebound, No tenderness Extremity: Normal Capillary Refill, No Calf Tenderness, No Pedal Edema Neurologic/Psychiatric: Alert, Oriented x3, Normal Mood/Affect Skin: Normal Color, Warm/Dry Lymphatic: No Adenopathy Results Lab Laboratory Tests 04/09/21 19:45 04/09/21 19:47 04/09/21 23:05 04/10/21 00:30 04/10/21 02:55 Assessment/Plan Assessment/Plan Diabetic Ketoacidosis -Insulin gtt, hourly accuchecks -NS @ 250ml/hr, switch to D5 1/2NS when blood glucose <250 -Levemir 15 units BID -Monitor labs per protocol Hyponatremia- Improving -Na up to 135 from 126 upon admission -Continue IVF's -Continue to monitor Hypokalemia -Replete -Continue to monitor Hypomagnesemia -Replete -Continue to monitor Anemia- Stable -Continue to monitor HTN -Continue to monitor -Resume home meds CAD -Monitor Sleep apnea -Monitor GERD -Monitor History of DVT -Monitor Tobacco abuse -encourage cessation GI Prophylaxis -Protonix DVT prophylaxis -lovenox KIM BRIGHT DO 04/10/21 0501: Allergies and Home Medications Allergies Coded Allergies: ketorolac (Verified Allergy, Severe, ANAPHYLAXIS, PT TAKES ASA AT HOME, 03/06/19) ondansetron (Verified Allergy, Intermediate, RASH, 03/06/19) RASH/ HIVES scopolamine (Verified Allergy, Mild, Rash, 03/21/19) exenatide (Verified Allergy, Unknown, NAUSEA, 03/06/19) NON STOP VOMITING latex (Verified Allergy, Unknown, RASH, 03/06/19) metoclopramide (Verified Allergy, Unknown, RESTLESS LEGS, 03/06/19) erythromycin base (Verified Adverse Reaction, Unknown, 03/21/19) Home Medications Atorvastatin Calcium 20 Mg Tablet, 20 MG PO HS, (Reported) Gabapentin 800 Mg Tablet, 1,600 MG PO HS, (Reported) TAKES 2 (800MG) TABLETS Gabapentin 800 Mg Tablet, 800 MG PO TID, (Reported) Insulin Aspart 300 Units/3 Ml Solution, UNITS SQ AC, (Reported) USES PER SLIDING SCALE Insulin Detemir 100 Unit/1 Ml Insuln.pen, 15 UNIT SQ BID, (Reported) Metoprolol Succinate 25 Mg Tab.er.24h, 25 MG PO DAILY, (Reported) Oxycodone HCl 10 Mg Tablet, 15 MG PO QID PRN for PAIN-SEVERE (8-10), (Reported) Pantoprazole Sodium 40 Mg Tablet.dr, 40 MG PO DAILY Prescribed by: JUAN DAVID BRADSHAW on 01/20/21 1247 Past Exymaot-Buznud-Yqnikj Hx Family Medical History Cancer of mouth 19 FATHER ( of esophogeal cancer.) Cardiovascular disease 19 MOTHER G8 BROTHER Completed stroke 19 FATHER G8 BROTHER Diabetes mellitus G8 BROTHER FH: lung cancer 19 MOTHER Hypertension 19 FATHER Kidney disease 19 FATHER Myocardial infarction 19 MOTHER G8 BROTHER Respiratory disorder No Family History of: AIDS Assessment/Plan Assessment/Plan Diabetic Ketoacidosis -Repeat Chem in 4hrs -Insulin gtt, hourly accuchecks -NS @ 250ml/hr, switch to D5 1/2NS when blood glucose <250 -Monitor labs per protocol Hyponatremia- Improving -Na up to 135 from 126 upon admission -Continue IVF's -Continue to monitor Hypokalemia -Replete -Continue to monitor Hypomagnesemia -Replete -Continue to monitor Anemia- Stable -Continue to monitor HTN -Continue to monitor -Resume home meds CAD -Monitor Sleep apnea -Monitor GERD -Monitor History of DVT -Monitor Tobacco abuse -encourage cessation GI Prophylaxis -Protonix DVT prophylaxis -lovenox Supervisory-Addendum Brief Verification & Attestation Participated in pt care: history, MDM, physical Personally performed: exam, history, MDM Care discussed with: Medical Student Procedures: n/a Results interpretation: Verified all documentation Verification and Attestation of Medical Student E/M Service A medical student performed and documented this service in my presence. I reviewed and verified all information documented by the medical student and made modifications to such information, when appropriate. I personally performed the physical exam and medical decision making. Kim Bright, April 10, 2021,05:04 SHELLEY NGO MED STUDENT April 10, 2021 04:35 KIM BRIGHT DO April 10, 2021 05:01
[2021-04-10] MEDS: ENOXAPARIN 40 MG/0.4 ML (LOVENOX) SYR SC SCH (05:54)
[2021-04-10 07:26] LABS: CALCIUM 7.6 MG/DL (8.5-10.1); CREATININE SERUM 1.22 MG/DL (0.60-1.30); POTASSIUM 4.1 MMOL/L (3.6-5.0)
[2021-04-10] MEDS ORDERED: SODIUM PHOSPHATE INJ 30 MM in NS (IVPB) 250 ML INJ ONE (08:00)
--- NOTE | 2021-04-10 08:19 | History & Physical-Hospitalist ---
History of Present Illness HPI/Chief Complaint Pt is 60yoCF with a PMH of IDDMII, HTN, seizure disorder who presented to the ER due to confusion. She lives with her sister and her brother in law noticed she was confused and called EMS. Per ER report she was A&Ox4 for EMS and she is at this time as well. At home her blood sugars were running high. She reports she has been compliant with her insulin and was proud ot tell me it had been months since she had been in the hospital for DKA. She told me she takes 30 units of Levemir BID but med rec says 15 and when asked again she says 15 units BID. She states she does a sliding scale for her prandial insulin but she is unable to tell me what the ranges are or what dose she often takes on the sliding scale. She is also unable to tell me her recent blood sugars or a1c. She was found to have a BS of 903 on arrival with and LANE. She did not have a gap and urine only had trace ketones. She was admitted for an insulin gtt. Source: patient Date Seen 04/10/21 Time Seen by a Provider: 07:45 Attending Physician Dario Thurman MD PCP Gerardo Greenwood DO Referring Physician Date of Admission April 09, 2021 at 21:05 Home Medications & Allergies Home Medications Reviewed patient Home Medication Reconciliation performed by pharmacy medication reconciliations process engineering technician and/or nursing. Patients Allergies have been reviewed. Allergies Allergies Coded Allergies ketorolac (Verified Allergy, Severe, ANAPHYLAXIS, PT TAKES ASA AT HOME, 03/06/19) ondansetron (Verified Allergy, Intermediate, RASH, 03/06/19) RASH/ HIVES scopolamine (Verified Allergy, Mild, Rash, 03/21/19) exenatide (Verified Allergy, Unknown, NAUSEA, 03/06/19) NON STOP VOMITING latex (Verified Allergy, Unknown, RASH, 03/06/19) metoclopramide (Verified Allergy, Unknown, RESTLESS LEGS, 03/06/19) erythromycin base (Verified Adverse Reaction, Unknown, 03/21/19) Past Medical/Social/Family Hx Patient Social History Employed/Student: unemployed Tobacco Use?: Yes Tobacco type used: Cigarettes Smoking Status: Current Everyday Smoker Use of E-Cig and/or Vaping dev: No Substance use?: No Alcohol Use?: No Pt stated abuse/neglect: No Immunizations Up To Date Influenza Vaccine Up-to-Date: Yes; Up-to-Date Tetanus Booster (TDap): Unknown Hepatitis A: No Hepatitis B: No TB Skin Test: None Date of Pneumonia Vaccine: Nov 06, 2019 Current Status status: No status: No Advance Directives: No Advance Directive Location: Home Communicates: Verbally Primary Language: Gambian Preferred Spoken Language: Gambian Is interpretation needed?: No Implanted or Applied Medical D: Port-a-cath Past Medical History Past Medical History 1. Diabetes Mellitus Type 1 with poor control 2. Hypertension 3.Hyperlipidemia 4.Chronic Kidney Disease 5. Irritable Bowel Disorder 6. Fibromyalgia 7.Psoriasis 8.chronic neck and back pain- on chronic narcotics from pain management 9. hx of blood clots in the upper extremities 10. Anxiety 11. Tobaccoism 12. 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 GERD 14. Diverticulosis 15. Seizure Disorder PSH: 1.Renal stent 2.cholecystectomy 3.Laminectomy 5.ear tubes as a child Family Medical History Family Hx: SOCIAL HISTORY: -ETOH--RARELY USES -DRUGS--Rx NARCOTIC ABUSE -SMOKES 1 PPD PSH: -LINQ DEVICE PLACED 11/09/19 FOR REPORTED PALPITATIONS X 6 MONTHS, SINCE PERCOCET WAS DC'D -MULTIPLE CARDIAC CATHS--STENT X 1 TO LAD 07/13/15. LAST CATH 01/18/19--NO INTERVENTION -LUMBAR SPINE FUSION X 3--12/2002, 04/2007, AND 05/2007 -LUMBAR DISCECTOMY 10/2000--? LAMINECTOMY? -CERVICAL SPINE FUSION 11/2006 -CHOLECYSTECTOMY 1983 -BMT'S -LITHOTRIPSY AND RIGHT URETERAL STENT -EGD'S WITH ESOPHAGEAL DILATIONS -COLONOSCOPIES, LAST ONE 03/08/19 -PORT RIGHT CHEST -LEFT SHOULDER ROTATOR CUFF REPAIR 05/01/20--DR. PALACIOS -CONTINUOUS GLUCOSE MONITOR PRESENT 06/25/20--LLQ OF ABDOMEN--NOT PRESENT 10/2020 -BILATERAL CATARACT SURGERY 10/2020 Review of Systems Constitutional: No chills, No fever EENTM: no symptoms reported Respiratory: No cough, No short of breath Cardiovascular: No chest pain, No edema, No palpitations Gastrointestinal: No constipation; diarrhea, nausea, vomiting Genitourinary: No discharge, No dysuria Musculoskeletal: no symptoms reported Skin: no symptoms reported Psychiatric/Neurological: No Symptoms Reported Physical Exam Physical Exam Vital Signs Vital Signs - First Documented 04/08/21 04/09/21 22:17 19:40 Temp 35.5 Pulse 88 Resp 18 B/P (MAP) 204/105 (138) Pulse Ox 98 O2 Delivery Room Air Capillary Refill : Less Than 3 Seconds Height, Weight, BMI Height: 5'1.00" Weight: 122lbs. 1.0oz. 55.537671lf; 24.67 BMI Method:Estimated General Appearance: No Apparent Distress, Chronically ill HEENT: PERRL/EOMI, Moist Mucous Membranes; No Scleral Icterus (L), No Scleral Icterus (R) Neck: Normal Inspection, Supple Respiratory: Lungs Clear, No Accessory Muscle Use, No Respiratory Distress Cardiovascular: Regular Rate, Rhythm, No Murmur Gastrointestinal: Normal Bowel Sounds, Non Tender, Soft Extremity: Normal Capillary Refill, No Calf Tenderness, No Pedal Edema Neurologic/Psychiatric: Alert, Oriented x3, Normal Mood/Affect Skin: Normal Color, Warm/Dry Results Results/Procedures Labs Laboratory Tests 04/09/21 19:45 04/09/21 19:47 04/09/21 23:05 04/10/21 00:30 04/10/21 02:55 04/10/21 06:55 Patient resulted labs reviewed. Imaging: Reviewed Imaging Report Imaging [facility] [place] [place] NAME: VALENTE HARPER [facility] REC#: [id number] PT STATUS: ADM IN : 1960 PHYSICIAN: LATANYA HOLLINGSWORTH MD ADMIT DATE: 04/09/21/ICU Signed Date of Exam:04/09/21 CHEST 1 VIEW, AP/PA ONLY INDICATION: Confusion. EXAMINATION: Portable erect AP chest at 8:44 p.m. FINDINGS: The heart is stable in size when compared to the prior exam of 11/12/2020. The loop recorder device, the central venous catheter on the right and the orthopedic plate and screw fixation device overlying the cervicothoracic junction, seen previously, are also again evident and no different. The lungs remain clear. There is still no sign of failure, pneumonia or a pleural effusion to indicate an acute abnormality. The mediastinum is not widened. The osseous structures are intact. IMPRESSION: There is no evidence for active disease. Dictated by: Dictated on workstation # [id number] Dict: 04/09/212100 Trans: 04/10/2137 PJ [id number] Interpreted by: BLANE PARKS MD Electronically signed by: BLANE PARKS MD 04/10/21 0038 Assessment/Plan Admission Diagnosis [facility] Admission Status: Inpatient Order (span 2 midnights) Reason for Inpatient Admission: see below Assessment and Plan [facility] LANE Was profoundly hyperglycemic on arrival but only minimally acidotic (bicarb of 19) and no gap Started on insulin gtt BS much improved- still not gap on BMP and beta hydroxybutyrate negative DC insulin gtt and switch to Levemir Creatinine improved Add SSI insulin a1c pending, last was 10.4 on 01/16/21 Seizure disorder Continue home meds when med rec done Appears to just be gabapentin which she also takes for peripheral neuropathy HTN BP elevated, resume home meds narcotic dependence Continue home oxycodone only History of DVT Chronic anticoagulation Continue home anticoagulation DVT ppx: as above Clinical Quality Measures Smoking Cessation Counseling: Counseling-Symptomatic: 3-10 Minutes GERARDO RITTER MD April 10, 2021 08:19
[2021-04-10] MEDS: PANTOPRAZOLE 40 MG (PROTONIX) VIAL IV SCH (08:20)
--- NOTE | 2021-04-10 08:20 | Diagnostic Imaging Report ---
INDICATION: Hyponatremia, diabetic acute ketoacidosis COMPARISON: 04/09/2021 TECHNIQUE: Single radiograph chest dated 04/10/2021 FINDINGS: Right-sided Port-A-Cath is again identified. Loop recorder overlying left chest is again seen. Postsurgical changes within the cervical spine are again seen. The cardiac silhouette is enlarged, though stable. Mild central pulmonary vascular congestion. Low lung volumes without focal pulmonary opacity. No significant pleural effusion. No pneumothorax. No acute osseous abnormality. IMPRESSION: Mild cardiomegaly and prominence of pulmonary vasculature, likely accentuated by low lung volumes. Additional postsurgical and chronic findings as above. Dictated by: Dictated on workstation # [id number]
[2021-04-10] MEDS ORDERED: OXYC-525 PO (10:09)
[2021-04-10] MEDS ORDERED: PANT40TA52 PO (10:09)
[2021-04-10] MEDS ORDERED: PROM25TA14 PO (10:09)
[2021-04-10] MEDS ORDERED: ASPI-1238 PO (10:09)
[2021-04-10] MEDS: hydrALAZINE (APESOLINE) 20 MG/ML VIAL IV PRN ×3 (10:27→23:49)
[2021-04-10] MEDS: inSUlin ASPART (NovoLOG) 1 UNIT/0.01 ML (CHARGE PER UNIT) SC SCH ×3 (13:05→20:25)
[2021-04-10] MEDS: PROMETHAZINE INJ 25 MG/ML (PHENERGAN) AMP IVP PRN ×2 (13:19→19:05)
[2021-04-10 15:56] LABS: POTASSIUM 3.3 MMOL/L (3.6-5.0)
[2021-04-10 16:01] LABS: CREATININE SERUM 0.95 MG/DL (0.60-1.30)
[2021-04-11] MEDS: PROMETHAZINE INJ 25 MG/ML (PHENERGAN) AMP IVP PRN ×4 (01:13→23:13)
[2021-04-11] MEDS: 1/2 NS IV SOLUTION 1,000 ML IV SCH ×2 (03:01→03:55)
[2021-04-11] MEDS: MAGNESIUM 1 GM/100 ML IVPB 100 ML IV SCH (03:55)
[2021-04-11] MEDS: POTASSIUM CL 10MEQ/50ML IVPB 50 ML IV SCH ×7 (03:55→10:53)
[2021-04-11] MEDS: KCL 20 MEQ TAB (K-DUR) PO SCH (03:55)
--- NOTE | 2021-04-11 03:57 | Progress Note ---
Subjective Date Seen by a Provider: April 11, 2021 Time Seen by a Provider: 03:55 Subjective/Events-last exam Patient awake this am. Reports sleeping ok. Denies fevers, chills, chest pain, SOB, vomiting, and headaches. Admits to some mild nausea and neck pain. She has no questions or other concerns at this time. Tachycardic and hypertensive per monitor. Been off insulin gtt since yesterday. Review of Systems General: No Chills, No Night Sweats HEENT: No Head Aches, No Visual Changes, No Eye Pain Pulmonary: No Dyspnea, No Cough Cardiovascular: No: Chest Pain, Palpitations Gastrointestinal: Nausea; No: Vomiting, Abdominal Pain Genitourinary: No Dysuria, No Frequency Musculoskeletal: neck pain; No: back pain Neurological: No: Weakness, Numbness Objective Exam Last Set of Vital Signs Vital Signs Date Time Temp Pulse Resp B/P (MAP) Pulse Ox O2 Delivery O2 Flow Rate FiO2 04/11/21 03:00 105 15 150/75 (100) 96 Room Air 04/10/21 23:31 36.8 Capillary Refill : Less Than 3 Seconds I&O Intake and Output 04/10/21 23:59 Intake Total 03053 ml Output Total 1700 ml Balance 60973 ml Intake Oral 600 ml IV Total 95895 ml Output Urine Total 1700 ml # Voids 4 # Bowel Movements 1 Results Lab Laboratory Tests 04/10/21 04:49: Glucometer 253H 04/10/21 05:48: Glucometer 217H 04/10/21 06:55: Sodium Level 130L, Potassium Level 4.1, Chloride Level 105, Carbon Dioxide Level 17L, Anion Gap 8, Blood Urea Nitrogen 30H, Creatinine 1.22, Estimat Glomerular Filtration Rate 45, BUN/Creatinine Ratio 25, Glucose Level 264H, Calcium Level 7.6L 04/10/21 06:57: Glucometer 259H 04/10/21 08:40: Glucometer 156H 04/10/21 09:30: Glucometer 137H 04/10/21 10:34: Glucometer 172H 04/10/21 12:52: Glucometer 212H 04/10/21 15:32: Glucometer 131H 04/10/21 15:40: Sodium Level 135, Potassium Level 3.3L, Chloride Level 108H, Carbon Dioxide Level 21, Anion Gap 6, Blood Urea Nitrogen 24H, Creatinine 0.95, Estimat Glomerular Filtration Rate 60, BUN/Creatinine Ratio 25, Glucose Level 130H, Calcium Level 8.0L 04/10/21 20:25: Glucometer 100 04/10/21 23:22: Glucometer 163H Clinical Quality Measures Smoking Cessation Counseling: Counseling-Symptomatic: 3-10 Minutes SHELLEY NGO MED STUDENT April 11, 2021 03:57
--- NOTE | 2021-04-11 04:01 | Pulmonary Progress Note ---
SHELLEY NGO MED STUDENT 04/11/21 0400: Subjective Date Seen by a Provider: April 11, 2021 Time Seen by a Provider: 03:58 Subjective/Events-last exam Patient awake this am. Reports sleeping fairly well. Denies chest pain, SOB, headache, vomiting, fevers, and chills. Reports mild nausea and some neck pain. Denies further questions at this time. Review of Systems General: No Chills, No Night Sweats HEENT: No Head Aches, No Visual Changes Pulmonary: No Dyspnea, No Cough Cardiovascular: No: Chest Pain, Palpitations Gastrointestinal: Nausea; No: Vomiting, Abdominal Pain Genitourinary: No Dysuria, No Frequency Musculoskeletal: neck pain; No: shoulder pain, back pain Neurological: No: Weakness, Numbness Sepsis Event Evaluation Height, Weight, BMI Height: 5'1.00" Weight: 122lbs. 1.0oz. 55.329198qd; 24.67 BMI Method:Estimated Exam Exam Vital Signs Date Time Temp Pulse Resp B/P (MAP) Pulse Ox O2 Delivery O2 Flow Rate FiO2 04/11/21 03:00 105 15 150/75 (100) 96 Room Air 04/11/21 02:00 105 13 154/79 (104) 96 Room Air 04/11/21 01:00 105 04/11/21 01:00 105 190/87 (121) 96 Room Air 04/11/21 00:00 110 11 198/97 (130) 97 Room Air 04/10/21 23:31 36.8 04/10/21 23:28 99 Room Air 04/10/21 23:00 104 192/99 (130) 98 Room Air 04/10/21 22:00 105 10 179/100 (126) 97 Room Air 04/10/21 21:00 89 12 183/78 (120) 97 Room Air 04/10/21 20:00 87 138/71 (100) 97 Room Air 04/10/21 20:00 99 Room Air 04/10/21 19:25 36.4 92 16 154/78 (103) 98 Room Air 04/10/21 19:00 96 04/10/21 18:00 80 13 Room Air 04/10/21 17:00 87 12 178/87 (117) 98 Room Air 04/10/21 16:17 99 Room Air 04/10/21 16:00 85 13 192/91 (124) 97 Room Air 04/10/21 15:00 85 16 97 Room Air 04/10/21 14:00 86 16 97 Room Air 04/10/21 13:00 85 20 186/87 (120) 98 Room Air 04/10/21 12:41 84 04/10/21 12:00 84 166/84 (111) 97 Room Air 04/10/21 12:00 36.6 04/10/21 11:13 99 Room Air 04/10/21 11:00 76 14 162/65 (97) 97 Room Air 04/10/21 10:00 74 30 197/87 (123) 97 Room Air 04/10/21 09:00 70 59 188/86 (120) 97 Room Air 04/10/21 08:00 99 Room Air 04/10/21 08:00 70 53 179/97 (124) 98 Room Air 04/10/21 07:39 36.4 04/10/21 07:00 73 22 178/84 (115) 99 Room Air 04/10/21 06:53 71 04/10/21 06:00 71 27 183/82 (115) 99 Room Air 04/10/21 05:00 72 166/78 (107) 100 Room Air 04/10/21 04:00 70 18 176/78 (110) 99 Room Air I & O 04/11/21 07:00 Intake Total 9850 ml Output Total 1075 ml Balance 8775 ml Height & Weight Height: 5'1.00" Weight: 122lbs. 1.0oz. 55.559814cu; 24.67 BMI Method:Estimated General Appearance: No Apparent Distress, Chronically ill HEENT: PERRL/EOMI, Moist Mucous Membranes; No Scleral Icterus (L), No Scleral Icterus (R) Neck: Normal Inspection, Supple Respiratory: Chest Non Tender, Lungs Clear, No Accessory Muscle Use, No Respiratory Distress Cardiovascular: No Murmur, Normal Peripheral Pulses, Tachycardia (119 per monitor) Capillary Refill: Less Than 3 Seconds Peripheral Pulses: 2+ Dorsalis Pedis (R), 2+ Left Dors-Pedis (L), 2+ Radial Pulses (R), 2+ Radial Pulses (L) Gastrointestinal: normal bowel sounds, non tender, soft; No distended, No guarding, No rebound, No tenderness Extremity: Normal Capillary Refill, No Calf Tenderness, No Pedal Edema Neurologic/Psychiatric: Alert, Oriented x3, Normal Mood/Affect Skin: Normal Color, Warm/Dry Lymphatic: No Adenopathy Results Lab Laboratory Tests 04/09/21 19:45 04/09/21 19:47 04/09/21 23:05 04/10/21 00:30 04/10/21 02:55 04/10/21 06:55 04/10/21 15:40 Assessment/Plan Assessment/Plan Diabetic Ketoacidosis- Improved -beta hydroxybutyrate negative yesterday, another pending this am -insulin gtt discontinued yesterday -glucoses running below 200 consistently now --Levemir 15 units BID -labs per protocol -continue to monitor LAEN- Resolved -continue to monitor creatinine Hyponatremia- Resolved -Na 136 today -Continue to monitor Hypokalemia -K 3.4 this am -Replete -Continue to monitor Hypomagnesemia- Resolved -Continue to monitor Anemia- Stable -Continue to monitor HTN -Continue to monitor -Resume home meds CAD -Monitor Sleep apnea -Monitor GERD -Monitor History of DVT -Monitor Tobacco abuse -encourage cessation GI Prophylaxis -Protonix DVT prophylaxis -lovenox GIBSON BRIGHT DO 04/11/21 0549: Assessment/Plan Assessment/Plan Diabetic Ketoacidosis- Improved -beta hydroxybutyrate negative yesterday, another pending this am -insulin gtt discontinued yesterday -glucoses running below 200 consistently now --Levemir 15 units BID -Hypoglycemia -- Pt is not eating secondary to nausea -Start D51/2 NS and continue Levemir and SSI -Check amylase/lipase -labs per protocol -continue to monitor LANE- Resolved -continue to monitor creatinine Hyponatremia- Resolved -Na 136 today -Continue to monitor Hypokalemia -K 3.4 this am -Replete -Continue to monitor Hypomagnesemia- Resolved -Continue to monitor Anemia- Stable -Continue to monitor HTN -Continue to monitor -Resume home meds CAD -Monitor Sleep apnea -Monitor GERD -Monitor History of DVT -Monitor Tobacco abuse -encourage cessation GI Prophylaxis -Protonix DVT prophylaxis -lovenox Supervisory-Addendum Brief Verification & Attestation Participated in pt care: history, MDM, physical Personally performed: exam, history, MDM, supervision of care Care discussed with: Medical Student Procedures: n/a Verification and Attestation of Medical Student E/M Service A medical student performed and documented this service in my presence. I reviewed and verified all information documented by the medical student and made modifications to such information, when appropriate. I personally performed the physical exam and medical decision making. Gibson Bright, April 17, 2021,12:24 SHELLEY NGO MED STUDENT April 11, 2021 04:00 GIBSON BRIGHT DO April 11, 2021 05:49
[2021-04-11 04:03] LABS: BASOPHILS # (AUTO) 0.1 10^3/uL (0.0-0.1); BASOPHILS % (AUTO) 1 % (0-10); EOSINOPHILS # (AUTO) 0.1 10^3/uL (0.0-0.3); EOSINOPHILS % (AUTO) 1 % (0-10); HEMATOCRIT 33 % (35-52); HEMOGLOBIN 11.4 g/dL (11.5-16.0); LYMPHOCYTES # (AUTO) 3.8 10^3/uL (1.0-4.0); LYMPHOCYTES % (AUTO) 30 % (12-44); MEAN CORPUSCULAR HEMOGLOBIN 29 pg (25-34); MEAN CORPUSCULAR HGB CONC 34 g/dL (32-36); MEAN CORPUSCULAR VOLUME 83 fL (80-99); MONOCYTES # (AUTO) 0.6 10^3/uL (0.0-1.0); MONOCYTES % (AUTO) 5 % (0-12); NEUTROPHILS # (AUTO) 8.1 10^3/uL (1.8-7.8); NEUTROPHILS % (AUTO) 64 % (42-75); PLATELET COUNT 269 10^3/uL (130-400); WHITE BLOOD COUNT 12.8 10^3/uL (4.3-11.0)
[2021-04-11 04:25] LABS: POTASSIUM 3.4 MMOL/L (3.6-5.0)
[2021-04-11 04:31] LABS: CREATININE SERUM 1.14 MG/DL (0.60-1.30); PHOSPHORUS 3.5 MG/DL (2.3-4.7)
[2021-04-11 04:34] LABS: MAGNESIUM 2.2 MG/DL (1.6-2.4)
[2021-04-11] MEDS: inSUlin ASPART (NovoLOG) 1 UNIT/0.01 ML (CHARGE PER UNIT) SC SCH ×4 (05:24→20:04)
[2021-04-11] MEDS: ENOXAPARIN 40 MG/0.4 ML (LOVENOX) SYR SC SCH (05:24)
[2021-04-11] MEDS: hydrALAZINE (APESOLINE) 20 MG/ML VIAL IV PRN (05:24)
[2021-04-11] MEDS ORDERED: D5 1/2 NS 1000 ML IV SOLUTION 1,000 ML IV SCH (05:45)
[2021-04-11 06:10] LABS: AMYLASE 106 U/L (25-125)
[2021-04-11 06:19] LABS: LIPASE 4 U/L (8-78)
--- NOTE | 2021-04-11 08:02 | Progress Note - Hospitalist ---
Subjective HPI/CC On Admission Date Seen by Provider: April 11, 2021 Time Seen by Provider: 07:59 Pt is 60yoCF with a PMH of IDDMII, HTN, seizure disorder who presented to the ER due to confusion. She lives with her sister and her brother in law noticed she was confused and called EMS. Per ER report she was A&Ox4 for EMS and she is at this time as well. At home her blood sugars were running high. She reports she has been compliant with her insulin and was proud ot tell me it had been months since she had been in the hospital for DKA. She told me she takes 30 units of Levemir BID but med rec says 15 and when asked again she says 15 units BID. She states she does a sliding scale for her prandial insulin but she is unable to tell me what the ranges are or what dose she often takes on the sliding scale. She is also unable to tell me her recent blood sugars or a1c. She was found to have a BS of 903 on arrival with and LANE. She did not have a gap and urine only had trace ketones. She was admitted for an insulin gtt. Subjective/Events-last exam Pt reports persistent nausea and abdominal pain. Similar to normal issues but somewhat worse. No other complaints. Objective Exam Vital Signs Vital Signs Date Time Temp Pulse Resp B/P (MAP) Pulse Ox O2 Delivery O2 Flow Rate FiO2 04/11/21 06:00 116 17 131/68 (89) 99 Room Air 04/10/21 23:31 36.8 Capillary Refill : Less Than 3 Seconds General Appearance: No Apparent Distress, Chronically ill Respiratory: Lungs Clear, No Respiratory Distress Cardiovascular: Regular Rate, Rhythm, No Murmur Gastrointestinal: Normal Bowel Sounds, Soft, Tenderness (to palpation but less so when palpated with equal depth with stethoscope) Extremity: No Calf Tenderness, No Pedal Edema Neurologic/Psychiatric: Alert, Oriented x3 Results/Procedures Lab Laboratory Tests 04/10/21 15:40 04/11/21 03:52 Patient resulted labs reviewed. Imaging: Reviewed Imaging Report Assessment/Plan Assessment and Plan Assess & Plan/Chief Complaint HHS- resolved Poorly controlled IDDMI LANE Abdominal pain Doing well on bolus insulin Creatinine improved further today Add SSI insulin a1c pending still, last was 10.4 on 01/16/21 Amylase and Lipase normal Continue home phenergan and oxycodone Seizure disorder Continue home meds when med rec done Appears to just be gabapentin which she also takes for peripheral neuropathy HTN BP elevated, resume home meds narcotic dependence Continue home oxycodone only History of DVT Chronic anticoagulation Continue home anticoagulation DVT ppx: as above Clinical Quality Measures Smoking Cessation Counseling: Counseling-Symptomatic: 3-10 Minutes GERARDO RITTER MD April 11, 2021 08:02
[2021-04-11] MEDS ORDERED: NITROGLYCERIN 2% OINT 1 GM UNIT DOSE PACKET TOP PRN (08:15)
[2021-04-11] MEDS ORDERED: GABAPENTIN 100 MG (NEURONTIN) CAP PO SCH (09:00)
[2021-04-11] MEDS ORDERED: GABAPENTIN 400 MG (NEURONTIN) CAP ONE (09:33)
[2021-04-11] MEDS: PANTOPRAZOLE 40 MG (PROTONIX) VIAL IV SCH (09:49)
[2021-04-11] MEDS: GABAPENTIN 400 MG (NEURONTIN) CAP PO SCH ×3 (09:50→20:04)
[2021-04-11] MEDS: diphenhydrAMINE 50 MG/ML INJ (BENADRYL) IVP PRN (23:13)
[2021-04-12] MEDS ORDERED: DEXTROSE 50% 50 ML (IMS) SYR ONE (00:02)
[2021-04-12 03:50] LABS: BASOPHILS # (AUTO) 0.1 10^3/uL (0.0-0.1); BASOPHILS % (AUTO) 1 % (0-10); EOSINOPHILS # (AUTO) 0.1 10^3/uL (0.0-0.3); EOSINOPHILS % (AUTO) 1 % (0-10); HEMATOCRIT 31 % (35-52); HEMOGLOBIN 10.1 g/dL (11.5-16.0); LYMPHOCYTES # (AUTO) 3.1 10^3/uL (1.0-4.0); LYMPHOCYTES % (AUTO) 32 % (12-44); MEAN CORPUSCULAR HEMOGLOBIN 29 pg (25-34); MEAN CORPUSCULAR HGB CONC 33 g/dL (32-36); MEAN CORPUSCULAR VOLUME 87 fL (80-99); MEAN PLATELET VOLUME 10.5 fL (9.0-12.2); MONOCYTES # (AUTO) 0.6 10^3/uL (0.0-1.0); MONOCYTES % (AUTO) 6 % (0-12); NEUTROPHILS % (AUTO) 60 % (42-75); PLATELET COUNT 240 10^3/uL (130-400); WHITE BLOOD COUNT 9.9 10^3/uL (4.3-11.0)
[2021-04-12 04:09] LABS: POTASSIUM 4.3 MMOL/L (3.6-5.0)
[2021-04-12 04:10] LABS: CALCIUM 7.5 MG/DL (8.5-10.1)
[2021-04-12 04:14] LABS: PHOSPHORUS 3.5 MG/DL (2.3-4.7)
[2021-04-12 04:15] LABS: CREATININE SERUM 1.55 MG/DL (0.60-1.30)
[2021-04-12 04:17] LABS: MAGNESIUM 2.2 MG/DL (1.6-2.4)
[2021-04-12] MEDS: PROMETHAZINE INJ 25 MG/ML (PHENERGAN) AMP IVP PRN ×3 (05:32→18:23)
[2021-04-12] MEDS: diphenhydrAMINE 50 MG/ML INJ (BENADRYL) IVP PRN ×3 (05:32→18:23)
[2021-04-12] MEDS: ENOXAPARIN 40 MG/0.4 ML (LOVENOX) SYR SC SCH (05:32)
[2021-04-12] MEDS: inSUlin ASPART (NovoLOG) 1 UNIT/0.01 ML (CHARGE PER UNIT) SC SCH ×5 (08:54→23:56)
[2021-04-12] MEDS: PANTOPRAZOLE 40 MG (PROTONIX) VIAL IV SCH (09:12)
[2021-04-12] MEDS: GABAPENTIN 400 MG (NEURONTIN) CAP PO SCH ×3 (09:14→21:07)
--- NOTE | 2021-04-12 11:42 | Progress Note - Hospitalist ---
Subjective HPI/CC On Admission Date Seen by Provider: April 12, 2021 Time Seen by Provider: 11:40 Pt is 60yoCF with a PMH of IDDMII, HTN, seizure disorder who presented to the ER due to confusion. She lives with her sister and her brother in law noticed she was confused and called EMS. Per ER report she was A&Ox4 for EMS and she is at this time as well. At home her blood sugars were running high. She reports she has been compliant with her insulin and was proud ot tell me it had been months since she had been in the hospital for DKA. She told me she takes 30 units of Levemir BID but med rec says 15 and when asked again she says 15 units BID. She states she does a sliding scale for her prandial insulin but she is unable to tell me what the ranges are or what dose she often takes on the sliding scale. She is also unable to tell me her recent blood sugars or a1c. She was found to have a BS of 903 on arrival with and LANE. She did not have a gap and urine only had trace ketones. She was admitted for an insulin gtt. Subjective/Events-last exam Pt reports feeling much better today. Was able to keep some food down yesterday. No other complaints. Objective Exam Vital Signs Vital Signs Date Time Temp Pulse Resp B/P (MAP) Pulse Ox O2 Delivery O2 Flow Rate FiO2 04/12/21 11:36 37.1 68 22 126/71 (89) 97 Room Air Capillary Refill : Less Than 3 Seconds General Appearance: No Apparent Distress, Chronically ill Respiratory: Lungs Clear, No Accessory Muscle Use, No Respiratory Distress Cardiovascular: Regular Rate, Rhythm, No Murmur Gastrointestinal: Normal Bowel Sounds, Non Tender, Soft Neurologic/Psychiatric: Alert, Oriented x3 Results/Procedures Lab Laboratory Tests 04/12/21 03:10 Patient resulted labs reviewed. Imaging: Reviewed Imaging Report Assessment/Plan Assessment and Plan Assess & Plan/Chief Complaint HHS- resolved Poorly controlled IDDMI LANE Abdominal pain Hypoglycemic overnight, decreased Levemir to just daily dosing Likely due to nonompliance at home as she states she normally takes 30 units of Levemir BID and has only been getting 15 units BID Creatinine relatively stable but up a bit today a1c 10.3 essentially the same as 2 months ago Amylase and Lipase normal Continue home phenergan and oxycodone Seizure disorder Continue home meds when med rec done Appears to just be gabapentin which she also takes for peripheral neuropathy HTN BP well controlled narcotic dependence Continue home oxycodone only History of DVT Chronic anticoagulation Continue home anticoagulation DVT ppx: as above Clinical Quality Measures Smoking Cessation Counseling: Counseling-Symptomatic: 3-10 Minutes GERARDO RITTER MD April 12, 2021 11:42
[2021-04-12] MEDS ORDERED: NS IV 1000 ML 1,000 ML ONE (19:11)
[2021-04-12] MEDS ORDERED: NS IV 1000 ML 1,000 ML IV ONE (19:30)
[2021-04-12] MEDS ORDERED: NS IV 1000 ML 1,000 ML IV SCH (19:30)
[2021-04-12] MEDS ORDERED: PROMETHAZINE INJ 25 MG/ML (PHENERGAN) AMP IVP PRN (19:30)
[2021-04-13] MEDS: diphenhydrAMINE 50 MG/ML INJ (BENADRYL) IVP PRN ×3 (02:35→17:48)
[2021-04-13] MEDS: PROMETHAZINE INJ 25 MG/ML (PHENERGAN) AMP IVP PRN ×3 (02:35→17:48)
[2021-04-13 03:35] LABS: BASOPHILS # (AUTO) 0.1 10^3/uL (0.0-0.1); BASOPHILS % (AUTO) 1 % (0-10); EOSINOPHILS # (AUTO) 0.3 10^3/uL (0.0-0.3); EOSINOPHILS % (AUTO) 3 % (0-10); HEMATOCRIT 30 % (35-52); HEMOGLOBIN 9.6 g/dL (11.5-16.0); LYMPHOCYTES # (AUTO) 5.1 10^3/uL (1.0-4.0); LYMPHOCYTES % (AUTO) 51 % (12-44); MEAN CORPUSCULAR HEMOGLOBIN 29 pg (25-34); MEAN CORPUSCULAR HGB CONC 32 g/dL (32-36); MEAN CORPUSCULAR VOLUME 93 fL (80-99); MEAN PLATELET VOLUME 10.3 fL (9.0-12.2); MONOCYTES # (AUTO) 0.7 10^3/uL (0.0-1.0); MONOCYTES % (AUTO) 7 % (0-12); NEUTROPHILS # (AUTO) 3.8 10^3/uL (1.8-7.8); NEUTROPHILS % (AUTO) 38 % (42-75); PLATELET COUNT 178 10^3/uL (130-400)
[2021-04-13 03:53] LABS: CALCIUM 7.3 MG/DL (8.5-10.1); CREATININE SERUM 1.51 MG/DL (0.60-1.30); MAGNESIUM 1.9 MG/DL (1.6-2.4); PHOSPHORUS 3.1 MG/DL (2.3-4.7); POTASSIUM 4.7 MMOL/L (3.6-5.0)
[2021-04-13] MEDS: inSUlin ASPART (NovoLOG) 1 UNIT/0.01 ML (CHARGE PER UNIT) SC SCH ×6 (04:01→23:36)
[2021-04-13] MEDS: ENOXAPARIN 40 MG/0.4 ML (LOVENOX) SYR SC SCH (05:38)
[2021-04-13] MEDS: GABAPENTIN 400 MG (NEURONTIN) CAP PO SCH ×3 (07:41→20:25)
[2021-04-13] MEDS: PANTOPRAZOLE 40 MG (PROTONIX) VIAL IV SCH (07:42)
[2021-04-13] MEDS ORDERED: LORATADINE (CLARITIN) 10 MG TAB PO NR (12:00)
[2021-04-13] MEDS ORDERED: SIMETHICONE 80 MG (MYLICON) CHEW PO NR (12:00)
[2021-04-13] MEDS: SIMETHICONE 80 MG (MYLICON) CHEW PO SCH ×3 (12:14→20:25)
--- NOTE | 2021-04-13 12:41 | Progress Note - Hospitalist ---
Subjective HPI/CC On Admission Date Seen by Provider: April 13, 2021 Time Seen by Provider: 12:32 Pt is 60yoCF with a PMH of IDDMII, HTN, seizure disorder who presented to the ER due to confusion. She lives with her sister and her brother in law noticed she was confused and called EMS. Per ER report she was A&Ox4 for EMS and she is at this time as well. At home her blood sugars were running high. She reports she has been compliant with her insulin and was proud ot tell me it had been months since she had been in the hospital for DKA. She told me she takes 30 units of Levemir BID but med rec says 15 and when asked again she says 15 units BID. She states she does a sliding scale for her prandial insulin but she is unable to tell me what the ranges are or what dose she often takes on the sliding scale. She is also unable to tell me her recent blood sugars or a1c. She was found to have a BS of 903 on arrival with and LANE. She did not have a gap and urine only had trace ketones. She was admitted for an insulin gtt. Subjective/Events-last exam Pt reports feeling better today. Eating a pulled pork sandwich and tolerating it well. Also asking to increase frequency of phenergan and benadryl. Advised her that this would not be safe as it caused her BP to drop to SBP of 70s yesterday. Offered to switch to oral version of both so it would have less impact on her BP and she refuses. She also ask for something for gas pain. LAstly she asks "Why the fuck does this keep happening to me?" We discussed very frankly that it does not appear she is compliant with her insulin at home give she could not tell me her home doses and when we have her on half her home dose her BS is well controlled to even low. Also advised her that chronic oxycodone is not helping her Gi issues. Lastly that poorly controlled diabetes will impact her gut motility. She states she had a normal gastric emptying study done here and knows she doesn't have gastroparesis. Her last gastric emptying study was almost two years ago though. Advised her to follow up closely with her retirement plan counselor to further work this up then. She also complaints of her "vagina farting" since she had a catheter 3 months ago. We discussed anatomy and how a catheter goes in to her bladder and should not have impacted her vagina. She requests washerette machine operator consult to evaluate because she "doesn't know where it's coming from down there but it smell like farts." Objective Exam Vital Signs Vital Signs Date Time Temp Pulse Resp B/P (MAP) Pulse Ox O2 Delivery O2 Flow Rate FiO2 04/13/21 12:00 36.4 72 18 151/64 (93) 97 Room Air Capillary Refill : Less Than 3 Seconds General Appearance: No Apparent Distress, Chronically ill Respiratory: Lungs Clear, No Respiratory Distress Cardiovascular: Regular Rate, Rhythm, No Murmur Gastrointestinal: Normal Bowel Sounds, Soft Neurologic/Psychiatric: Alert, Oriented x3 Results/Procedures Lab Laboratory Tests 04/13/21 03:25 Patient resulted labs reviewed. Imaging: Reviewed Imaging Report Assessment/Plan Assessment and Plan Assess & Plan/Chief Complaint HHS- resolved Poorly controlled IDDMI LANE Abdominal pain BS better controlled with Levemir 15 units daily Likely due to noncompliance at home Creatinine relatively stable but up a bit today a1c 10.3 essentially the same as 2 months ago Amylase and Lipase normal Continue home phenergan and oxycodone- will not increase dose or frequency as she was profoundly hypotensive with previous dose Seizure disorder Continue home meds when med rec done Appears to just be gabapentin which she also takes for peripheral neuropathy HTN BP well controlled narcotic dependence Continue home oxycodone only History of DVT Chronic anticoagulation Continue home anticoagulation Vaginal complaints Discussed with Dr Morton who will see tomorrow (patient requests Dr Morton) DVT ppx: as above Clinical Quality Measures Smoking Cessation Counseling: Counseling-Symptomatic: 3-10 Minutes GERARDO RITTER MD April 13, 2021 12:41
[2021-04-13] MEDS ORDERED: LOPERAMIDE 2 MG (IMODIUM) TABLET PO PRN (12:45)
[2021-04-14] MEDS: PROMETHAZINE INJ 25 MG/ML (PHENERGAN) AMP IVP PRN ×3 (02:26→17:37)
[2021-04-14] MEDS: diphenhydrAMINE 50 MG/ML INJ (BENADRYL) IVP PRN ×3 (02:34→17:37)
[2021-04-14] MEDS: inSUlin ASPART (NovoLOG) 1 UNIT/0.01 ML (CHARGE PER UNIT) SC SCH ×7 (04:53→20:38)
[2021-04-14] MEDS: ENOXAPARIN 40 MG/0.4 ML (LOVENOX) SYR SC SCH (04:54)
[2021-04-14 05:09] LABS: BASOPHILS # (AUTO) 0.1 10^3/uL (0.0-0.1); BASOPHILS % (AUTO) 1 % (0-10); EOSINOPHILS # (AUTO) 0.4 10^3/uL (0.0-0.3); EOSINOPHILS % (AUTO) 5 % (0-10); HEMATOCRIT 28 % (35-52); LYMPHOCYTES # (AUTO) 4.2 10^3/uL (1.0-4.0); LYMPHOCYTES % (AUTO) 47 % (12-44); MEAN CORPUSCULAR HEMOGLOBIN 29 pg (25-34); MEAN CORPUSCULAR HGB CONC 32 g/dL (32-36); MEAN CORPUSCULAR VOLUME 90 fL (80-99); MEAN PLATELET VOLUME 10.5 fL (9.0-12.2); MONOCYTES # (AUTO) 0.5 10^3/uL (0.0-1.0); MONOCYTES % (AUTO) 6 % (0-12); NEUTROPHILS # (AUTO) 3.6 10^3/uL (1.8-7.8); NEUTROPHILS % (AUTO) 41 % (42-75); PLATELET COUNT 190 10^3/uL (130-400)
[2021-04-14 05:34] LABS: CALCIUM 7.6 MG/DL (8.5-10.1); CREATININE SERUM 1.91 MG/DL (0.60-1.30); MAGNESIUM 1.7 MG/DL (1.6-2.4); PHOSPHORUS 3.6 MG/DL (2.3-4.7); POTASSIUM 5.5 MMOL/L (3.6-5.0)
[2021-04-14] MEDS: GABAPENTIN 400 MG (NEURONTIN) CAP PO SCH ×3 (10:02→20:39)
[2021-04-14] MEDS: LORATADINE (CLARITIN) 10 MG TAB PO SCH (10:03)
[2021-04-14] MEDS: SIMETHICONE 80 MG (MYLICON) CHEW PO SCH ×4 (10:03→21:56)
[2021-04-14] MEDS: PANTOPRAZOLE 40 MG (PROTONIX) VIAL IV SCH (10:09)
--- NOTE | 2021-04-14 14:49 | Progress Note - Hospitalist ---
Subjective HPI/CC On Admission Date Seen by Provider: April 14, 2021 Time Seen by Provider: 10:45 Pt is 60yoCF with a PMH of IDDMII, HTN, seizure disorder who presented to the ER due to confusion. She lives with her sister and her brother in law noticed she was confused and called EMS. Per ER report she was A&Ox4 for EMS and she is at this time as well. At home her blood sugars were running high. She reports she has been compliant with her insulin and was proud ot tell me it had been months since she had been in the hospital for DKA. She told me she takes 30 units of Levemir BID but med rec says 15 and when asked again she says 15 units BID. She states she does a sliding scale for her prandial insulin but she is unable to tell me what the ranges are or what dose she often takes on the sliding scale. She is also unable to tell me her recent blood sugars or a1c. She was found to have a BS of 903 on arrival with and LANE. She did not have a gap and urine only had trace ketones. She was admitted for an insulin gtt. Subjective/Events-last exam She is feeling well this morning. She had some low blood sugars earlier. She felt shaky and could tell her blood sugar was low. At this time, she feels well. Objective Exam Vital Signs Vital Signs Date Time Temp Pulse Resp B/P (MAP) Pulse Ox O2 Delivery O2 Flow Rate FiO2 04/14/21 12:05 37.5 64 20 152/76 (101) 97 Room Air Capillary Refill : Less Than 3 Seconds General Appearance: No Apparent Distress, WD/WN Respiratory: Lungs Clear, Normal Breath Sounds, No Respiratory Distress Cardiovascular: Regular Rate, Rhythm, No Edema, No Murmur Gastrointestinal: Normal Bowel Sounds, Non Tender, Soft Extremity: Normal Inspection, Non Tender, No Pedal Edema Neurologic/Psychiatric: Alert, Oriented x3, No Motor/Sensory Deficits, Normal Mood/Affect Skin: Normal Color, Warm/Dry Results/Procedures Lab Laboratory Tests 04/14/21 05:00 Patient resulted labs reviewed. Imaging: Reviewed Imaging Report Assessment/Plan Assessment and Plan Assess & Plan/Chief Complaint T2DM with hypoglycemia LANE Blood sugar 27 this morning Decrease sliding scale Continue Levemir 15 units daily Add Novolog 5 units with meals Creatinine increased slightly Begin IV fluids HTN BP well controlled Narcotic dependence Continue home oxycodone only History of DVT Chronic anticoagulation Continue home anticoagulation Vaginal complaints Dr Morton consulted DVT ppx: already receiving therapeutic anticoagulation HHS, resolved Abdominal pain, resolved Diagnosis/Problems Diagnosis/Problems (1) T2DM (type 2 diabetes mellitus) Status: Acute (2) Acute kidney injury Status: Acute Clinical Quality Measures Smoking Cessation Counseling: Counseling-Symptomatic: 3-10 Minutes JUAN DAVID BRADSHAW MD April 14, 2021 14:49
[2021-04-14] MEDS: NS IV 1000 ML 1,000 ML IV SCH (15:13)
--- NOTE | 2021-04-14 16:47 | Consultation ---
History of Present Illness History of Present Illness Patient Consulted On(joshua/time) 04/14/21 16:31 Date Seen by Provider: April 14, 2021 Time Seen by Provider: 13:00 Reason for Visit: "gas coming out my urethra" History of Present Illness I was consulted by Dr. Silverio to see this medically complex patient. She states that she was in the hospital in December and had a catheter placed. She is unsure how long it was there and how long she was in the hospital. States that when she has to pass gas, she knows it comes out the front. Thinks she has a fistula Reports no new issues with bladder, holding urine, etc. No bowel issues. She has been hospitalized for DKA. As the type of exam necessaary to evaluate a vesicovaginal or urethral vaginal fistula is technically difficult in the hospital, I discussed with Mrs. Urbano that I will schedule an outpatient visit. And consider Ct cystourethrogram. Allergies and Home Medications Allergies Coded Allergies: ketorolac (Verified Allergy, Severe, ANAPHYLAXIS, PT TAKES ASA AT HOME, 03/06/19) ondansetron (Verified Allergy, Intermediate, RASH, 03/06/19) RASH/ HIVES scopolamine (Verified Allergy, Mild, Rash, 03/21/19) exenatide (Verified Allergy, Unknown, NAUSEA, 03/06/19) NON STOP VOMITING latex (Verified Allergy, Unknown, RASH, 03/06/19) metoclopramide (Verified Allergy, Unknown, RESTLESS LEGS, 03/06/19) erythromycin base (Verified Adverse Reaction, Unknown, 03/21/19) Home Medications Aspirin 81 Mg Tablet.dr, 81 MG PO DAILY, (Reported) Last Action: Reviewed Atorvastatin Calcium 20 Mg Tablet, 20 MG PO HS, (Reported) Last Action: Reviewed Gabapentin 800 Mg Tablet, 1,600 MG PO HS, (Reported) TAKES 2 (800MG) TABLETS Last Action: Reviewed Gabapentin 800 Mg Tablet, 800 MG PO DAILY, (Reported) Last Action: Reviewed Insulin Aspart 300 Units/3 Ml Solution, UNITS SQ AC, (Reported) USES PER SLIDING SCALE Last Action: Reviewed Insulin Detemir 100 Unit/1 Ml Insuln.pen, 15 UNIT SQ BID, (Reported) Last Action: Reviewed Metoprolol Succinate 25 Mg Tab.er.24h, 25 MG PO DAILY, (Reported) Last Action: Reviewed Oxycodone HCl 15 Mg Tablet, 15 MG PO QID, (Reported) Last Action: Reviewed Pantoprazole Sodium 40 Mg Tablet.dr, 40 MG PO BIDAC, (Reported) Last Action: Reviewed Promethazine HCl 25 Mg Tablet, 25 MG PO TID PRN for NAUSEA/VOMITING, (Reported) Last Action: Reviewed Past Jbjnmca-Dikfqu-Xeeaex Hx Patient Social History Alcohol Use: Denies Use Number of Drinks Today: Alcohol Beverage of Choice: Wine Drug of Choice: NARCOTIC ABUSE Smoking Status: Current Everyday Smoker Type Used: Cigarettes Former Smoker, Quit: Nov 10, 2017 2nd Hand Smoke Exposure: No Recent Infectious Disease Expo: No Recent Hopitalizations: Yes Have you traveled recently?: No Alcohol Use?: No Immunizations Up To Date Tetanus Booster (TDap): Unknown PED Vaccines UTD: No Date of Pneumonia Vaccine: Nov 06, 2019 Date of Influenza Vaccine: Nov 22, 2019 Seasonal Allergies Seasonal Allergies: Yes Past Medical History Surgeries: Yes (EGD and colonoscopy) Cardiac, Coronary Stent, Ear Surgery, Gallbladder, Orthopedic, Renal Respiratory: Yes Chronic Bronchitis, Sleep Apnea Currently Using CPAP: No Currently Using BIPAP: No Cardiac: Yes (DVT'S IN ARMS; CARDIAC STENT X 1; CAROTID DISEASE;LINQ DEVICE) Chronic Edema/Swelling, Coronary Artery Disease, Deep Vein Thrombosis, High Cholesterol, Hypertension, Palpitations Neurological: Yes (NEUROPATHY IN HANDS AND FEET) Headaches /Migraines, Neuropathy 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 Disorders: No 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 Disorders: Denies SOFTWARE QA MANAGER History: Menopausal Sexually Transmitted Disease: No HIV/AIDS: No Genitourinary: Yes Bladder Infection, Kidney Stones, Renal Failure Gastrointestinal: Yes Gastroesophageal Reflux Musculoskeletal: Yes (CHRONIC GENERALIZED PAIN;CHRONIC BILAT SHOULDER PAIN;CHRONIC NECK PAIN ) Degenerate Disk Disease, Fibromyalgia, Chronic Back Pain Endocrine: Yes (NON-COMPLAINT;MULTIPLE EPISODES OF DKA-EASILY CONTROLLED ON INSULIN IN HOSP) Diabetes, Insulin dep HEENT: Yes (GLASSES; S/P BMT'S;BILAT CATARACT SURGERY 10/2020) Cataract, Chronic Ear Infection Loss of Vision: Bilateral Hearing Impairment: Hard of Hearing Cancer: No Psychosocial: Yes Anxiety Integumentary: Yes Psoriasis Blood Disorders: No Adverse Reaction/Blood Tranf: No Family Medical History Cancer of mouth 19 FATHER ( of esophogeal cancer.) Cardiovascular disease 19 MOTHER G8 BROTHER Completed stroke 19 FATHER G8 BROTHER Diabetes mellitus G8 BROTHER FH: lung cancer 19 MOTHER Hypertension 19 FATHER Kidney disease 19 FATHER Myocardial infarction 19 MOTHER G8 BROTHER Respiratory disorder No Family History of: AIDS Cancer, Diabetes, Hypertension SOCIAL HISTORY: -ETOH--RARELY USES -DRUGS--Rx NARCOTIC ABUSE -SMOKES 1 PPD PSH: -LINQ DEVICE PLACED 11/09/19 FOR REPORTED PALPITATIONS X 6 MONTHS, SINCE PERCOCET WAS DC'D -MULTIPLE CARDIAC CATHS--STENT X 1 TO LAD 07/13/15. LAST CATH 01/18/19--NO INTERVENTION -LUMBAR SPINE FUSION X 3--12/2002, 04/2007, AND 05/2007 -LUMBAR DISCECTOMY 10/2000--? LAMINECTOMY? -CERVICAL SPINE FUSION 11/2006 -CHOLECYSTECTOMY 1983 -BMT'S -LITHOTRIPSY AND RIGHT URETERAL STENT -EGD'S WITH ESOPHAGEAL DILATIONS -COLONOSCOPIES, LAST ONE 03/08/19 -PORT RIGHT CHEST -LEFT SHOULDER ROTATOR CUFF REPAIR 05/01/20--DR. PALACIOS -CONTINUOUS GLUCOSE MONITOR PRESENT 06/25/20--LLQ OF ABDOMEN--NOT PRESENT 10/2020 -BILATERAL CATARACT SURGERY 10/2020 Physical Exam-General Problems Physical Exam Vital Signs Vital Signs - First Documented 04/08/21 04/09/21 22:17 19:40 Temp 35.5 Pulse 88 Resp 18 B/P (MAP) 204/105 (138) Pulse Ox 98 O2 Delivery Room Air Capillary Refill : Less Than 3 Seconds Clinical Quality Measures Smoking Cessation Counseling: Counseling-Symptomatic: 3-10 Minutes GENNY AU DO April 14, 2021 16:46
[2021-04-14] MEDS ORDERED: inSUlin ASPART (NovoLOG) 1 UNIT/0.01 ML (CHARGE PER UNIT) SC SCH (17:00)
[2021-04-14] MEDS ORDERED: FUROSEMIDE 40 MG (LASIX) TAB ONE (20:54)
[2021-04-15] MEDS: inSUlin ASPART (NovoLOG) 1 UNIT/0.01 ML (CHARGE PER UNIT) SC SCH ×6 (00:14→12:12)
[2021-04-15] MEDS: NS IV 1000 ML 1,000 ML IV SCH ×2 (00:50→10:45)
[2021-04-15] MEDS: diphenhydrAMINE 50 MG/ML INJ (BENADRYL) IVP PRN ×2 (02:31→10:10)
[2021-04-15] MEDS: PROMETHAZINE INJ 25 MG/ML (PHENERGAN) AMP IVP PRN ×2 (02:32→10:22)
[2021-04-15] MEDS: ENOXAPARIN 40 MG/0.4 ML (LOVENOX) SYR SC SCH (04:50)
[2021-04-15 05:00] LABS: BASOPHILS # (AUTO) 0.1 10^3/uL (0.0-0.1); BASOPHILS % (AUTO) 1 % (0-10); EOSINOPHILS # (AUTO) 0.6 10^3/uL (0.0-0.3); EOSINOPHILS % (AUTO) 4 % (0-10); HEMATOCRIT 28 % (35-52); HEMOGLOBIN 8.7 g/dL (11.5-16.0); LYMPHOCYTES # (AUTO) 3.6 10^3/uL (1.0-4.0); LYMPHOCYTES % (AUTO) 27 % (12-44); MEAN CORPUSCULAR HEMOGLOBIN 29 pg (25-34); MEAN CORPUSCULAR HGB CONC 32 g/dL (32-36); MEAN CORPUSCULAR VOLUME 90 fL (80-99); MEAN PLATELET VOLUME 11.3 fL (9.0-12.2); MONOCYTES # (AUTO) 0.7 10^3/uL (0.0-1.0); MONOCYTES % (AUTO) 5 % (0-12); NEUTROPHILS # (AUTO) 8.1 10^3/uL (1.8-7.8); NEUTROPHILS % (AUTO) 62 % (42-75); PLATELET COUNT 203 10^3/uL (130-400)
[2021-04-15 05:12] LABS: POTASSIUM 5.2 MMOL/L (3.6-5.0)
[2021-04-15 05:17] LABS: PHOSPHORUS 3.9 MG/DL (2.3-4.7)
[2021-04-15 05:18] LABS: CREATININE SERUM 1.61 MG/DL (0.60-1.30)
[2021-04-15 05:20] LABS: MAGNESIUM 1.6 MG/DL (1.6-2.4)
[2021-04-15] MEDS: PANTOPRAZOLE 40 MG (PROTONIX) VIAL IV SCH (09:26)
[2021-04-15] MEDS: SIMETHICONE 80 MG (MYLICON) CHEW PO SCH ×2 (09:27→12:12)
[2021-04-15] MEDS: LORATADINE (CLARITIN) 10 MG TAB PO SCH (09:27)
[2021-04-15] MEDS: GABAPENTIN 400 MG (NEURONTIN) CAP PO SCH ×2 (09:27→12:12)
[2021-04-15] MEDS ORDERED: INSU100I29 SQ (11:11)
[2021-04-15] MEDS ORDERED: INSU100I14 SQ (11:11)
--- NOTE | 2021-04-15 12:13 | Diagnostic Imaging Report ---
INDICATION: A questionable urethral fistula. Study is performed for further evaluation. A noncontrast axial imaging through the abdomen and pelvis was performed. Next, a Bateman catheter was placed and a 300 mL solution of water and Omnipaque contrast was infused into the urinary bladder. Axial imaging through the abdomen and pelvis was performed. Next, the Bateman catheter was removed. The patient voided and a repeat postvoid axial imaging through the abdomen and pelvis was performed. Sagittal and coronal re-formations were obtained of all 3 sequences. Precontrast sequences show some generalized edema throughout the subcutaneous tissue suggestive of anasarca. Liver is unremarkable. Gallbladder is surgically absent. Pancreas and spleen are unremarkable. Adrenal glands and kidneys are grossly unremarkable. There is moderate stool throughout the colon suggestive of constipation. There is diverticulosis of the sigmoid but no evidence of acute diverticulitis. There is no free fluid or fluid collection identified. Postop changes posterior instrumented fusion lower lumbar spine is seen. Bladder is decompressed by Bateman catheter. CT cystogram images demonstrate the bladder distended by contrast. No abnormal accumulation of contrast is seen beyond the bladder wall. No definite vaginal contrast is seen. There is no contrast extending into the rectum or adjacent bowel loops. Postvoiding imaging still demonstrates a moderate postvoid residual bladder volume. No definite abnormal contrast collection is seen to suggest fistula formation into the vagina or rectum or other adjacent bowel loops. There is a small cyst in the right adnexa consistent with an ovarian cyst. IMPRESSION: Essentially unremarkable CT cystogram study. No definite fistula is identified arising from the urinary bladder or urethra. Dictated by: Dictated on workstation # [id number]
[2021-04-15 14:20] VITALS: BP 179/75
--- NOTE | 2021-04-16 12:59 | Discharge Summary ---
Discharge Summary Hospital Course Was the Problem List Reviewed?: Yes Problems/Dx: (1) T1DM (type 1 diabetes mellitus) Status: Acute Qualifiers: Qualified Codes: E10.69 - Type 1 diabetes mellitus with other specified complication (2) Acute kidney injury Status: Acute (3) Vaginal discomfort Status: Acute Hospital Course Date of Admission: April 09, 2021 at 21:05 Admission Diagnosis : T1DM with [facility] Family Physician/Provider: Cindy Calabrese DO Date of Discharge: 04/15/21 Discharge Diagnosis: T1DM with [facility] Hospital Course: Itzel Urbano is a 60 year old female with insulin dependent diabetes mellitus who presented with hyperglycemia and was admitted with [facility]. She was admitted to the ICU on an insulin drip. Her hyperglycemia resolved. Her course was complicated by LANE and she was given fluids. She also had issues with hyperglycemia and hypoglycemia as she is a brittle diabetic. She was instructed to change her insulin regimen to Levemir 15 units daily and Novolog 5 units with meals plus sliding scale. She also reported isues with "passing gas" from her vagina. She was concerned about a fistula and Dr. Au (CARE AIDE) was consulted. A CT Cystogram was performed and did not reveal a fistula, but she will follow up in Dr. Au's clinic for further exam and evaluation. She will follow up with her anodizing line operator and her PCP. She was discharged home in stable condition. Labs and Pending Lab Test: Microbiology 04/09/21 MRSA Screen - Final, Complete MRSA not isolated Home Meds Active Novolog Flexpen (Insulin Aspart) 300 Units/3 Ml Solution 5 Units SQ AC 30 Days 5 UNITS WITH MEALS PLUS SLIDING SCALE Levemir Flextouch (Insulin Detemir) 100 Unit/1 Ml Insuln.pen 15 Unit SQ DAILY 30 Days Reported Aspirin EC (Aspirin) 81 Mg Tablet.dr 81 Mg PO DAILY Oxycodone HCl 15 Mg Tablet 15 Mg PO QID Pantoprazole Sodium 40 Mg Tablet.dr 40 Mg PO BIDAC Promethazine Tablet (Promethazine HCl) 25 Mg Tablet 25 Mg PO TID PRN Metoprolol Succinate 25 Mg Tab.er.24h 25 Mg PO DAILY Atorvastatin Calcium 20 Mg Tablet 20 Mg PO HS Gabapentin 800 Mg Tablet 800 Mg PO DAILY Gabapentin 800 Mg Tablet 1,600 Mg PO HS TAKES 2 (800MG) TABLETS Assessment/Pt Instructions Take medications as prescribed. Follow up with your PCP. Return with worsening symptoms. Discharge Planning: <30 minutes discharge planning Discharge Instructions Discharge Diet: ADA Diet Activity as Tolerated: Yes Consultations CARE AIDE Discharge Physical Examination Vital Signs Vital Signs Date Time Temp Pulse Resp B/P (MAP) Pulse Ox O2 Delivery O2 Flow Rate FiO2 04/15/21 14:20 36.0 69 18 179/75 96 Room Air General Appearance: No Apparent Distress, WD/WN Respiratory: Lungs Clear, Normal Breath Sounds, No Respiratory Distress Cardiovascular: Regular Rate, Rhythm, No Edema, No Murmur Gastrointestinal: Normal Bowel Sounds, Non Tender, Soft Extremity: Normal Inspection, Non Tender, No Pedal Edema Skin: Normal Color, Warm/Dry Neurologic/Psychiatric: Alert, Oriented x3, No Motor/Sensory Deficits, Normal Mood/Affect Allergies: Coded Allergies: ketorolac (Verified Allergy, Severe, ANAPHYLAXIS, PT TAKES ASA AT HOME, 03/06/19) ondansetron (Verified Allergy, Intermediate, RASH, 03/06/19) RASH/ HIVES scopolamine (Verified Allergy, Mild, Rash, 03/21/19) exenatide (Verified Allergy, Unknown, NAUSEA, 03/06/19) NON STOP VOMITING latex (Verified Allergy, Unknown, RASH, 03/06/19) metoclopramide (Verified Allergy, Unknown, RESTLESS LEGS, 03/06/19) erythromycin base (Verified Adverse Reaction, Unknown, 03/21/19) Copy Copies To 1: CINDY CALABRESE DO Copies To 2: GENNY AU DO Discharge Summary Date of Admission April 09, 2021 at 21:05 Date of Discharge April 15, 2021 at 14:20 Discharge Date: April 15, 2021 Discharge Time: 14:20 Admission Diagnosis [facility] Discharge Diagnosis T1DM with [facility] (1) T2DM (type 2 diabetes mellitus) Status: Acute (2) Acute kidney injury Status: Acute (3) Vaginal discomfort Status: Acute Clinical Quality Measures Smoking Cessation Counseling: Counseling-Symptomatic: 3-10 Minutes JUAN DAVID BRADSHAW MD April 16, 2021 12:56
== END 2021-04-15 14:20 | disposition home or self-care (01) | DRG 638 ==
LOC: EDUNIT# 19:39 → ER 19:41 → ICU 21:05 → 4TH 04-12 06:53
PROVIDERS: ADMIT Internal Medicine; ATTEND Internal Medicine
DX: E10.10 Type 1 diabetes mellitus with ketoacidosis without coma (principal); E87.1 Hypo-osmolality and hyponatremia; N17.9 Acute kidney failure, unspecified; E10.40 Type 1 diabetes mellitus with diabetic neuropathy, unspecified; E10.649 Type 1 diabetes mellitus with hypoglycemia without coma; E87.6 Hypokalemia; E83.42 Hypomagnesemia; I12.9 Hypertensive chronic kidney disease with stage 1 through stage 4 chronic kidney disease, or unspecified chronic kidney disease; E10.22 Type 1 diabetes mellitus with diabetic chronic kidney disease; N18.9 Chronic kidney disease, unspecified; I25.10 Atherosclerotic heart disease of native coronary artery without angina pectoris; D64.9 Anemia, unspecified; G47.30 Sleep apnea, unspecified; K21.9 Gastro-esophageal reflux disease without esophagitis; M79.7 Fibromyalgia; E78.5 Hyperlipidemia, unspecified; G40.909 Epilepsy, unspecified, not intractable, without status epilepticus; H91.90 Unspecified hearing loss, unspecified ear; F41.9 Anxiety disorder, unspecified; F17.210 Nicotine dependence, cigarettes, uncomplicated; H54.3 Unqualified visual loss, both eyes; Z79.4 Long term (current) use of insulin; Z95.5 Presence of coronary angioplasty implant and graft; Z79.01 Long term (current) use of anticoagulants; Z79.82 Long term (current) use of aspirin; Z83.3 Family history of diabetes mellitus; Z81.8 Family history of other mental and behavioral disorders
CPT/HCPCS: 36415; 71045; 72192; 80048; 80053; 81000; 82010; 82150; 82947; 83036; 83690; 83735; 84100; 85007; 85025; 85027; 86141; 87081

== ENCOUNTER 2021-04-29 18:04 | Observation (INO) | payer MEDICARE ==
[~2021-04-29] VITALS: Ht 152 cm; Wt 63.0 kg
[~2021-04-29 18:04] MED LIST changes: +OXYC-525 PO
[2021-04-29 18:39] LABS: BASOPHILS # (AUTO) 0.1 10^3/uL (0.0-0.1); BASOPHILS % (AUTO) 1 % (0-10); EOSINOPHILS # (AUTO) 0.3 10^3/uL (0.0-0.3); EOSINOPHILS % (AUTO) 4 % (0-10); HEMATOCRIT 32 % (35-52); HEMOGLOBIN 10.4 g/dL (11.5-16.0); LYMPHOCYTES # (AUTO) 2.2 10^3/uL (1.0-4.0); LYMPHOCYTES % (AUTO) 26 % (12-44); MEAN CORPUSCULAR HEMOGLOBIN 28 pg (25-34); MEAN CORPUSCULAR HGB CONC 32 g/dL (32-36); MEAN CORPUSCULAR VOLUME 88 fL (80-99); MEAN PLATELET VOLUME 9.6 fL (9.0-12.2); MONOCYTES # (AUTO) 0.4 10^3/uL (0.0-1.0); MONOCYTES % (AUTO) 4 % (0-12); NEUTROPHILS # (AUTO) 5.7 10^3/uL (1.8-7.8); NEUTROPHILS % (AUTO) 65 % (42-75); PLATELET COUNT 279 10^3/uL (130-400); WHITE BLOOD COUNT 8.7 10^3/uL (4.3-11.0)
--- NOTE | 2021-04-29 18:46 | ED General ---
General Chief Complaint: Lower Extremity Stated Complaint: CELLULITIS Nursing Triage Note: ARRIVED VIA AMB TO ROOM 07 WITH COMPLAINTS OF LEFT LOWER LEG CELLULITS. STATES SHE HAS BEEN TO [facility] AND [facility] AND HAS BEEN TAKING CEPHALEXIN AND DOXY BUT IT IS NOT GETTING BETTER. Nursing Sepsis Screen: No Definite Risk Source of Information: Patient Exam Limitations: No Limitations History of Present Illness Date Seen by Provider: Apr 29, 2021 Time Seen by Provider: 18:13 Initial Comments Itzel is a 61-year-old woman who presents to the emergency room with complaints of worsened leg left lower extremity cellulitis. She has experienced increased swelling of the lower extremities, left greater than right, and warm erythema to the left foot and lower leg for more than a week. She has been on dual therapy of Keflex and doxycycline for about a week. She reports worsening of the symptoms despite treatment. She describes some weeping of the left lower leg last week. The erythema is well demarcated and extends past the mid castañeda on the left. She reports some recent hand erythema bilaterally as well. She states her blood sugars have ranged anywhere from the 40s to the 200s. She has been afebrile. She had been attempting compression stockings but is now unable to get them on. She has history of DVT previously but is no longer anticoagulated. Allergies and Home Medications Allergies Coded Allergies: ketorolac (Verified Allergy, Severe, ANAPHYLAXIS, PT TAKES ASA AT HOME, 03/06/19) ondansetron (Verified Allergy, Intermediate, RASH, 03/06/19) RASH/ HIVES scopolamine (Verified Allergy, Mild, Rash, 03/21/19) exenatide (Verified Allergy, Unknown, NAUSEA, 03/06/19) NON STOP VOMITING latex (Verified Allergy, Unknown, RASH, 03/06/19) metoclopramide (Verified Allergy, Unknown, RESTLESS LEGS, 03/06/19) erythromycin base (Verified Adverse Reaction, Unknown, 03/21/19) Home Medications Aspirin 81 Mg Tablet.dr, 81 MG PO DAILY, (Reported) Atorvastatin Calcium 20 Mg Tablet, 20 MG PO HS, (Reported) Gabapentin 800 Mg Tablet, 1,600 MG PO HS, (Reported) TAKES 2 (800MG) TABLETS Gabapentin 800 Mg Tablet, 800 MG PO DAILY, (Reported) Insulin Aspart 300 Units/3 Ml Solution, 5 UNITS SQ AC 5 UNITS WITH MEALS PLUS SLIDING SCALE Prescribed by: JUAN DAVID BRADSHAW on 04/15/21 1111 Insulin Detemir 100 Unit/1 Ml Insuln.pen, 15 UNIT SQ DAILY Prescribed by: JUAN DAVID BRADSHAW on 04/15/21 1111 Metoprolol Succinate 25 Mg Tab.er.24h, 25 MG PO DAILY, (Reported) Oxycodone HCl 15 Mg Tablet, 15 MG PO QID, (Reported) Pantoprazole Sodium 40 Mg Tablet.dr, 40 MG PO BIDAC, (Reported) Promethazine HCl 25 Mg Tablet, 25 MG PO TID PRN for NAUSEA/VOMITING, (Reported) Patient Home Medication List Home Medication List Reviewed: Yes Review of Systems Review of Systems Constitutional: no symptoms reported EENTM: no symptoms reported Respiratory: no symptoms reported Cardiovascular: see HPI Gastrointestinal: no symptoms reported Genitourinary: no symptoms reported : No Musculoskeletal: no symptoms reported Skin: see HPI Psychiatric/Neurological: No Symptoms Reported Hematologic/Lymphatic: No Symptoms Reported Immunological/Allergic: no symptoms reported Past [id number]-Gwamvs-Nibqww Hx Past Med/Social Hx: Reviewed Nursing Past Med/Soc Hx Patient Social History Alcohol Use: Denies Use Number of Drinks Today: Alcohol Beverage of Choice: Wine Drug of Choice: NARCOTIC ABUSE Type Used: Cigarettes Former Smoker, Quit: Nov 10, 2017 2nd Hand Smoke Exposure: No Recent Infectious Disease Expo: No Recent Hopitalizations: Yes Immunizations Up To Date Tetanus Booster (TDap): Unknown PED Vaccines UTD: No Date of Pneumonia Vaccine: Nov 06, 2019 Date of Influenza Vaccine: Nov 22, 2019 Seasonal Allergies Seasonal Allergies: Yes Past Medical History Surgeries: Yes (EGD and colonoscopy) Cardiac, Coronary Stent, Ear Surgery, Gallbladder, Orthopedic, Renal Respiratory: Yes Chronic Bronchitis, Sleep Apnea Currently Using CPAP: No Currently Using BIPAP: No Cardiac: Yes (DVT'S IN ARMS; CARDIAC STENT X 1; CAROTID DISEASE;LINQ DEVICE) Chronic Edema/Swelling, Coronary Artery Disease, Deep Vein Thrombosis, High Cholesterol, Hypertension, Palpitations Neurological: Yes (NEUROPATHY IN HANDS AND FEET) Headaches /Migraines, Neuropathy 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 Disorders: No 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 Disorders: Denies 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 Sexually Transmitted Disease: No HIV/AIDS: No Genitourinary: Yes Bladder Infection, Kidney Stones, Renal Failure Gastrointestinal: Yes Gastroesophageal Reflux Musculoskeletal: Yes (CHRONIC GENERALIZED PAIN;CHRONIC BILAT SHOULDER PAIN;CHRONIC NECK PAIN ) Degenerate Disk Disease, Fibromyalgia, Chronic Back Pain Endocrine: Yes (NON-COMPLAINT;MULTIPLE EPISODES OF DKA-EASILY CONTROLLED ON INSULIN IN HOSP) Diabetes, Insulin dep HEENT: Yes (GLASSES; S/P BMT'S;BILAT CATARACT SURGERY 10/2020) Cataract, Chronic Ear Infection Loss of Vision: Bilateral Hearing Impairment: Hard of Hearing Cancer: No Psychosocial: Yes Anxiety Integumentary: Yes Psoriasis Blood Disorders: No Adverse Reaction/Blood Tranf: No Family Medical History Cancer of mouth 19 FATHER ( of esophogeal cancer.) Cardiovascular disease 19 MOTHER G8 BROTHER Completed stroke 19 FATHER G8 BROTHER Diabetes mellitus G8 BROTHER FH: lung cancer 19 MOTHER Hypertension 19 FATHER Kidney disease 19 FATHER Myocardial infarction 19 MOTHER G8 BROTHER Respiratory disorder No Family History of: AIDS Cancer, Diabetes, Hypertension SOCIAL HISTORY: -ETOH--RARELY USES -DRUGS--Rx NARCOTIC ABUSE -SMOKES 1 PPD PSH: -LINQ DEVICE PLACED 11/09/19 FOR REPORTED PALPITATIONS X 6 MONTHS, SINCE PERCOCET WAS DC'D -MULTIPLE CARDIAC CATHS--STENT X 1 TO LAD 07/13/15. LAST CATH 01/18/19--NO INTERVENTION -LUMBAR SPINE FUSION X 3--12/2002, 04/2007, AND 05/2007 -LUMBAR DISCECTOMY 10/2000--? LAMINECTOMY? -CERVICAL SPINE FUSION 11/2006 -CHOLECYSTECTOMY 1984 -BMT'S -LITHOTRIPSY AND RIGHT URETERAL STENT -EGD'S WITH ESOPHAGEAL DILATIONS -COLONOSCOPIES, LAST ONE 03/08/19 -PORT RIGHT CHEST -LEFT SHOULDER ROTATOR CUFF REPAIR 05/01/20--DR. PALACIOS -CONTINUOUS GLUCOSE MONITOR PRESENT 06/25/20--LLQ OF ABDOMEN--NOT PRESENT 10/2020 -BILATERAL CATARACT SURGERY 10/2020 Physical Exam Vital Signs Vital Signs - First Documented 04/29/21 04/29/21 18:08 19:00 Temp 36.2 Pulse 79 Resp 16 B/P (MAP) 210/94 (132) Pulse Ox 98 O2 Delivery Room Air Capillary Refill : Less Than 3 Seconds Height, Weight, BMI Height: 5'1.00" Weight: 122lbs. 1.0oz. [age]yo; 27.00 BMI Method:Estimated General Appearance: No Apparent Distress, WD/WN HEENT: PERRL/EOMI, Normal ENT Inspection Neck: Normal Inspection Respiratory: Lungs Clear, Normal Breath Sounds, No Accessory Muscle Use Cardiovascular: Regular Rate, Rhythm, No Murmur Gastrointestinal: Non Tender, Soft; No Distended Extremity: No Pedal Edema, Other (Swelling of the lower legs and feet bilaterally, left greater than right. Tender, warm erythema of the left lower leg extended from mid castañeda through the toes. Capillary refill brisk. 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 Skin: Normal Color, Warm/Dry, Erythema Procedures/Interventions Date of ETT Placement: Dec 30, 2019 Time of ETT Placement: 0750 Progress/Results/Core Measures Suspected Sepsis Recent Fever Within 48 Hours: No Infection Criteria Present: None New/Unexplained Altered Menta: No Sepsis Screen: No Definite Risk SIRS Temperature: Pulse: 79 Respiratory Rate: 16 Laboratory Tests 04/29/21 18:30: White Blood Count 8.7 Blood Pressure / Mean: Laboratory Tests 04/29/21 18:30: Creatinine 1.24, Platelet Count 279, Total Bilirubin 0.5 04/29/21 19:10: INR Comment 1.0 Results/Orders Lab Results Laboratory Tests Test 04/29/21 18:30 04/29/21 19:10 04/29/21 19:20 Range/Units White Blood Count 8.7 4.3-11.0 10^3/uL Red Blood Count 3.69 L 3.80-5.11 10^6/uL Hemoglobin 10.4 L 11.5-16.0 g/dL Hematocrit 32 L 35-52 % Mean Corpuscular Volume 88 80-99 fL Mean Corpuscular Hemoglobin 28 25-34 pg Mean Corpuscular Hemoglobin Concent 32 32-36 g/dL Red Cell Distribution Width 13.7 10.0-14.5 % Platelet Count 279 130-400 10^3/uL Mean Platelet Volume 9.6 9.0-12.2 fL Immature Granulocyte % (Auto) 0 % Neutrophils (%) (Auto) 65 42-75 % Lymphocytes (%) (Auto) 26 12-44 % Monocytes (%) (Auto) 4 0-12 % Eosinophils (%) (Auto) 4 0-10 % Basophils (%) (Auto) 1 0-10 % Neutrophils # (Auto) 5.7 1.8-7.8 10^3/uL Lymphocytes # (Auto) 2.2 1.0-4.0 10^3/uL Monocytes # (Auto) 0.4 0.0-1.0 10^3/uL Eosinophils # (Auto) 0.3 0.0-0.3 10^3/uL Basophils # (Auto) 0.1 0.0-0.1 10^3/uL Immature Granulocyte # (Auto) 0.0 0.0-0.1 10^3/uL Sodium Level 137 135-145 MMOL/L Potassium Level 4.3 3.6-5.0 MMOL/L Chloride Level 105 98-107 MMOL/L Carbon Dioxide Level 20 L 21-32 MMOL/L Anion Gap 12 5-14 MMOL/L Blood Urea Nitrogen 24 H 7-18 MG/DL Creatinine 1.24 0.60-1.30 MG/DL Estimat Glomerular Filtration Rate 44 BUN/Creatinine Ratio 19 Glucose Level 219 H 70-105 MG/DL Calcium Level 8.5 8.5-10.1 MG/DL Corrected Calcium 9.2 8.5-10.1 MG/DL Magnesium Level 1.4 L 1.6-2.4 MG/DL Total Bilirubin 0.5 0.1-1.0 MG/DL Aspartate Amino Transf (AST/SGOT) 12 5-34 U/L Alanine Aminotransferase (ALT/SGPT) 10 0-55 U/L Alkaline Phosphatase 99 40-136 U/L Myoglobin 43.0 10.0-92.0 NG/ML Troponin I < 0.028 <0.028 NG/ML C-Reactive Protein High Sensitivity 0.07 0.00-0.50 MG/DL B-Type Natriuretic Peptide 580.2 H <100.0 PG/ML Total Protein 6.3 L 6.4-8.2 GM/DL Albumin 3.1 L 3.2-4.5 GM/DL Lipase < 4 L 8-78 U/L Prothrombin Time 14.0 12.2-14.7 SEC INR Comment 1.0 0.8-1.4 Activated Partial Thromboplast Time 27 24-35 SEC D-Dimer 1.13 H 0.00-0.49 UG/ML Erythrocyte Sedimentation Rate 19 0-30 MM/HR My Orders Orders - WARD MUNGUIA MD Cbc With Automated Diff (04/29/21 18:17) Comprehensive Metabolic Panel (04/29/21 18:17) Hs C Reactive Protein (04/29/21 18:17) Ed Iv/Invasive Line Start (04/29/21 18:17) BNP (04/29/21 18:17) Fibrin Degradation Products (04/29/21 18:18) Erythrocyte Sedimentation Rate (04/29/21 19:03) Fentanyl Inj (Sublimaze Injection) (04/29/21 19:30) Magnesium (04/29/21 20:39) Chest 1 View, Ap/Pa Only (04/29/21 20:39) Ekg Tracing (04/29/21 20:39) Myoglobin Serum (04/29/21 20:39) Protime With Inr (04/29/21 20:39) Partial Thromboplastin Time (04/29/21 20:39) Monitor-Rhythm Ecg Trace Only (04/29/21 20:39) Ed Iv/Invasive Line Start (04/29/21 20:39) Lipase (04/29/21 20:39) Troponin I (04/29/21 20:39) Fentanyl Inj (Sublimaze Injection) (04/29/21 21:00) Us Venous Lower Ext Wili (04/29/21 22:03) Fentanyl Inj (Sublimaze Injection) (04/30/21 00:30) Morphine Injection (Morphine Injection (04/30/21 00:59) Medications Given in ED Current Medications Medications Dose Ordered Sig/Jackie Route Start Time Stop Time Status Last Admin Dose Admin Fentanyl Citrate 50 mcg ONCE ONCE IVP 04/29/21 19:30 04/29/21 19:31 DC 04/29/21 19:31 50 MCG Fentanyl Citrate 50 mcg ONCE ONCE IVP 04/29/21 21:00 04/29/21 21:01 DC 04/29/21 21:01 50 MCG Fentanyl Citrate 50 mcg ONCE ONCE IVP 04/30/21 00:30 04/30/21 00:31 DC 04/30/21 00:32 50 MCG Vital Signs/I&O 04/29/21 04/29/21 18:08 19:00 Temp 36.2 Pulse 79 64 Resp 16 16 B/P (MAP) 210/94 (132) Pulse Ox 98 98 O2 Delivery Room Air Room Air Capillary Refill : Less Than 3 Seconds Progress Note #1: Time: 18:45 Progress Note Patient was seen and examined. Labs are pending. Treatment course will depend in part on her lab evaluation. D-dimer was also obtained due to the unequal examination of the lower extremities and history of DVT. Progress Note #2: Time: 20:41 Progress Note I have communicated laboratory findings to the patient including elevated D- dimer. I am doubtful that the increase in symptoms are related to infection, but rather a possible DVT. I am checking with ultrasound to see if a study can be obtained tonight. Patient then reports having severe chest pain earlier in the day. She now has a little bit of pain with palpation to the chest and epigastrium but does not have the severe type of pain that she had earlier in the day. Further work-up will include the chest pain work-up and will in part be dependent on what is found on ultrasound studies. Progress Note #3: Progress Note Ultrasounds were negative for DVT in the legs. Given her chest pain earlier in the day and elevated D-dimer, further evaluation for PE should be pursued. Her renal function is marginal. I do not want to prophylactically treat her with IV fluids as her BNP is also elevated and she has peripheral edema. We will therefore admit for evaluation with a VQ scan. Patient's pain was treated with fentanyl and morphine. Cellulitis appears well controlled given her normal temperature, WBC, and CRP. ECG Initial ECG Impression Date: Apr 29, 2021 Initial ECG Impression Time: 20:44 Initial ECG Rate: 66 Initial ECG Rhythm: Normal Sinus Initial ECG Impression: Normal Comment Normal sinus rhythm with no ST elevation or depression. No abnormal intervals or axis deviation. Diagnostic Imaging Diagonstic Imaging: Xray Plain Films/CT/US/NM/MRI: chest Comments Chest x-ray viewed by me. Report not yet available. Loop recorder, cervical spine hardware, and port visible. No acute abnormalities appreciated by the ER physician. Departure Communication (Admissions) Time/Spoke to Admitting Phy: 01:00 Dr. Jamal Cobb notified by message Impression Primary Impression: Chest pain Qualified Codes: R07.9 - Chest pain, unspecified Additional Impressions: Elevated d-dimer Cellulitis of left leg Lower extremity edema Disposition: ADMITTED INPATIENT Condition: Improved Admissions Decision to Admit Reason: Admit from ER (General) Decision to Admit/Date: Apr 30, 2021 Time/Decision to Admit Time: 01:00 Departure-Patient Inst. Referrals: CINDY CALABRESE DO (PCP/Family) Primary Care Physician Copy Copies To 1: CINDY CALABRESE JOSHUA T MD Apr 29, 2021 18:46
[2021-04-29 18:47] LABS: ALBUMIN 3.1 GM/DL (3.2-4.5); POTASSIUM 4.3 MMOL/L (3.6-5.0)
[2021-04-29 18:48] LABS: CALCIUM 8.5 MG/DL (8.5-10.1)
[2021-04-29 18:49] LABS: TOTAL PROTEIN 6.3 GM/DL (6.4-8.2)
[2021-04-29 18:51] LABS: BILIRUBIN,TOTAL 0.5 MG/DL (0.1-1.0)
[2021-04-29 18:53] LABS: CREATININE SERUM 1.24 MG/DL (0.60-1.30)
[2021-04-29] MEDS ORDERED: fentaNYL INJ 100 MCG/2 ML AMP IVP ONE ×2 (19:30→21:00)
[2021-04-29 21:23] LABS: MAGNESIUM 1.4 MG/DL (1.6-2.4)
[2021-04-29 21:24] LABS: LIPASE < 4 U/L (8-78)
--- NOTE | 2021-04-29 21:44 | Diagnostic Imaging Report ---
EXAMINATION: Chest 1 view HISTORY: Chest pain COMPARISON: 04/10/2021 FINDINGS: Right port catheter tip terminates in the superior vena cava. Loop recorder is present. There is anterior cervical spine fusion. No pleural effusion or pneumothorax. No edema or pneumonia. Heart size is mildly enlarged. IMPRESSION: 1. Mildly enlarged heart, clear lungs. Dictated by: Dictated on workstation # [id number]
[2021-04-30] VITALS (7 sets, daily range): BP systolic 173–199; BP diastolic 67–93
[2021-04-30] MEDS ORDERED: fentaNYL INJ 100 MCG/2 ML AMP IVP ONE (00:30)
[2021-04-30] MEDS ORDERED: morphine INJ 10 MG/ML 1ML (SYR OR VIAL) IVP STA (00:59)
[2021-04-30] MEDS ORDERED: MAGNESIUM 1 GM/D5W 100 ML IVPB IV ONE (03:00)
[2021-04-30] MEDS: CEPHALEXIN 250 MG (KEFLEX) CAP PO SCH ×2 (03:12→11:40)
[2021-04-30] MEDS: morphine INJ 4 MG/ML 1 ML (VIAL/SYRINGE) IVP PRN ×2 (05:24→09:45)
[2021-04-30 05:37] LABS: BASOPHILS # (AUTO) 0.1 10^3/uL (0.0-0.1); BASOPHILS % (AUTO) 1 % (0-10); EOSINOPHILS # (AUTO) 0.3 10^3/uL (0.0-0.3); EOSINOPHILS % (AUTO) 4 % (0-10); HEMATOCRIT 30 % (35-52); HEMOGLOBIN 9.6 g/dL (11.5-16.0); LYMPHOCYTES # (AUTO) 3.1 10^3/uL (1.0-4.0); LYMPHOCYTES % (AUTO) 38 % (12-44); MEAN CORPUSCULAR HEMOGLOBIN 28 pg (25-34); MEAN CORPUSCULAR HGB CONC 32 g/dL (32-36); MEAN CORPUSCULAR VOLUME 87 fL (80-99); MEAN PLATELET VOLUME 9.7 fL (9.0-12.2); MONOCYTES # (AUTO) 0.5 10^3/uL (0.0-1.0); MONOCYTES % (AUTO) 7 % (0-12); NEUTROPHILS # (AUTO) 4.1 10^3/uL (1.8-7.8); NEUTROPHILS % (AUTO) 50 % (42-75); PLATELET COUNT 272 10^3/uL (130-400); WHITE BLOOD COUNT 8.2 10^3/uL (4.3-11.0)
[2021-04-30 05:53] LABS: CALCIUM 8.5 MG/DL (8.5-10.1)
[2021-04-30 05:58] LABS: CREATININE SERUM 1.15 MG/DL (0.60-1.30)
[2021-04-30] MEDS: DOXYCYCLINE 100 MG (VIBRAMYCIN) TABLET PO SCH ×2 (06:27→17:54)
--- NOTE | 2021-04-30 06:37 | Diagnostic Imaging Report ---
PROCEDURE: US Venous Lower Ext Wili. TECHNIQUE: Multiple real-time grayscale images were obtained over the lower extremities in various projections, bilaterally. Additional duplex Doppler and color Doppler images were also obtained. INDICATION: Pain and swelling. FINDINGS: The common femoral, femoral, popliteal veins and tibial veins demonstrate normal response to compression, augmentation and Valsalva. There are no abnormal lower extremity fluid collections or masses. IMPRESSION: No evidence of deep venous thrombosis in either lower extremity. Dictated by: Dictated on workstation # [id number]
[2021-04-30] MEDS ORDERED: ACETAMINOPHEN 325 MG TABLET PO PRN (07:45)
[2021-04-30] MEDS ORDERED: polyethylene glycoL POWDER 17 GM (MIRALAX) PACK PO PRN (07:45)
[2021-04-30] MEDS ORDERED: ANTACID SUSP 30 ML UDC (MYLANTA) PO PRN (07:45)
[2021-04-30] MEDS ORDERED: diphenhydrAMINE 25 MG TAB (BENADRYL) PO PRN (07:45)
[2021-04-30] MEDS ORDERED: MELATONIN 3 MG TABLET PO PRN (07:45)
--- NOTE | 2021-04-30 08:07 | Consultation-Cardiology ---
HPI-Cardiology Cardiology Consultation: Date of Consultation 04/30/21 Time Seen by a Provider: 08:45 Date of Admission 04-29-21 Attending Physician Jazmine Berry DO Admitting Physician Gerardo Greenwood DO Consulting Physician Missy Cobb MD HPI: Chief Complaint: Chest pain Ms. Harper is a 61 yr old female admitted to 425 from the ED with c/o CP. She reports she has had increasing bilat LE swelling with redness which has been present for several days. She reports for the last several days she has been having episodes of chest pain which she describes as a pressure across her ACW. The discomfort will last for several hours and then gradually resolve. She states no assoc symptoms with it. It does not change with movement or inspiration. She reports nausea at times, but states it is unrelated to her episodes of chest pressure. No c/o palpitations. No c/o syncope or near syncope. Review of Systems-Cardiology Review of Systems Constitutional: No chills, No fever; malaise Eyes: No vision change Ears/Nose/Throat: No epistaxis, No recent hearing loss Respiratory: As described under HPI Cardiovascular: As described under HPI Gastrointestinal: No constipation; nausea; No vomiting Genitourinary: No dysuria, No hematuria : No Musculoskeletal: no symptoms reported Skin: other (redness, swelling to bilat LE) Psychiatric/Neurological: No anxiety, No depression, No seizure, No focal weakness, No syncope Hematologic: No bleeding abnormalities GPW-Oqyvyk-Trnqcr Hx Patient Social History Smoking Status: Current Everyday Smoker 2nd Hand Smoke Exposure: No Have you traveled recently?: No Tobacco type used: Cigarettes Immunizations Up To Date Tetanus Booster (TDap): Unknown Date of Pneumonia Vaccine: Nov 06, 2019 Date of Influenza Vaccine: Nov 22, 2019 Past Medical History PMH As described under Assessment. Family Medical History Family Medical History: She reports her father had a stroke and high blood pressure. She reports her mother had CAD. She reports her brother has CAD, CVA and DM. Family History: Cancer of mouth 19 FATHER ( of esophogeal cancer.) Cardiovascular disease 19 MOTHER G8 BROTHER Completed stroke 19 FATHER G8 BROTHER Diabetes mellitus G8 BROTHER FH: lung cancer 19 MOTHER Hypertension 19 FATHER Kidney disease 19 FATHER Myocardial infarction 19 MOTHER G8 BROTHER Respiratory disorder No Family History of: AIDS Allergies and Home Medications Allergies Coded Allergies: ketorolac (Verified Allergy, Severe, ANAPHYLAXIS, PT TAKES ASA AT HOME, 03/06/19) ondansetron (Verified Allergy, Intermediate, RASH, 03/06/19) RASH/ HIVES scopolamine (Verified Allergy, Mild, Rash, 03/21/19) exenatide (Verified Allergy, Unknown, NAUSEA, 03/06/19) NON STOP VOMITING latex (Verified Allergy, Unknown, RASH, 03/06/19) metoclopramide (Verified Allergy, Unknown, RESTLESS LEGS, 03/06/19) erythromycin base (Verified Adverse Reaction, Unknown, 03/21/19) Home Medications Aspirin 81 Mg Tablet.dr, 81 MG PO DAILY, (Reported) Atorvastatin Calcium 20 Mg Tablet, 20 MG PO HS, (Reported) Gabapentin 800 Mg Tablet, 1,600 MG PO HS, (Reported) TAKES 2 (800MG) TABLETS Gabapentin 800 Mg Tablet, 800 MG PO DAILY, (Reported) Insulin Aspart 300 Units/3 Ml Solution, 5 UNITS SQ AC 5 UNITS WITH MEALS PLUS SLIDING SCALE Prescribed by: JUAN DAVID BRADSHAW on 04/15/21 1111 Insulin Detemir 100 Unit/1 Ml Insuln.pen, 15 UNIT SQ DAILY Prescribed by: JUAN DAVID BRADSHAW on 04/15/21 1111 Metoprolol Succinate 25 Mg Tab.er.24h, 25 MG PO DAILY, (Reported) Oxycodone HCl 15 Mg Tablet, 15 MG PO QID, (Reported) Pantoprazole Sodium 40 Mg Tablet.dr, 40 MG PO BIDAC, (Reported) Promethazine HCl 25 Mg Tablet, 25 MG PO TID PRN for NAUSEA/VOMITING, (Reported) Physical Exam-Cardiology Physical Exam Vital Signs/I&O 04/30/21 04/30/21 04/30/21 04/30/21 02:10 02:23 02:39 02:42 Temp 36.8 37.0 Pulse 70 68 69 Resp 16 16 B/P (MAP) 174/86 (115) 175/88 Pulse Ox 97 97 97 O2 Delivery Room Air Room Air Room Air 04/30/21 04/30/21 04/30/21 04:36 07:35 08:00 Temp 36.8 36.1 Pulse 73 65 71 Resp 20 18 B/P (MAP) 176/74 (108) 186/93 (124) Pulse Ox 96 98 O2 Delivery Room Air Room Air Capillary Refill : Less Than 3 Seconds Constitutional: AAO x 3, well-developed, well-nourished HEENT: PERRL, hearing is well preserved, oral hygience is good Neck: No carotid bruit; carotid pulses are 2 + bilaterally Respiratory: No accessory muscle use, No respiratory distress; chest expansion is symmetric, chest is bilaterally symmetric, lungs clear to auscultation Cardiovascular: regular rate-rhythm; No JVD; S1 and S2 Gastrointestinal: tender (epigastric), soft Extremities: no lower extremity edema bilateral Neurologic/Psychiatric: grossly intact (moves all extremities) Skin: other (bilat LE swelling with redness and warmth, L>R) Data Review Labs Laboratory Tests 04/29/21 18:30: White Blood Count 8.7, Red Blood Count 3.69L, Hemoglobin 10.4L, Hematocrit 32L, Mean Corpuscular Volume 88, Mean Corpuscular Hemoglobin 28, Mean Corpuscular Hemoglobin Concent 32, Red Cell Distribution Width 13.7, Platelet Count 279, Mean Platelet Volume 9.6, Immature Granulocyte % (Auto) 0, Neutrophils (%) (Auto) 65, Lymphocytes (%) (Auto) 26, Monocytes (%) (Auto) 4, Eosinophils (%) (Auto) 4, Basophils (%) (Auto) 1, Neutrophils # (Auto) 5.7, Lymphocytes # (Auto) 2.2, Monocytes # (Auto) 0.4, Eosinophils # (Auto) 0.3, Basophils # (Auto) 0.1, Immature Granulocyte # (Auto) 0.0, Sodium Level 137, Potassium Level 4.3, Chloride Level 105, Carbon Dioxide Level 20L, Anion Gap 12, Blood Urea Nitrogen 24H, Creatinine 1.24, Estimat Glomerular Filtration Rate 44, BUN/Creatinine Ratio 19, Glucose Level 219H, Calcium Level 8.5, Corrected Calcium 9.2, Magnesium Level 1.4L, Total Bilirubin 0.5, Aspartate Amino Transf (AST/SGOT) 12, Alanine Aminotransferase (ALT/SGPT) 10, Alkaline Phosphatase 99, Myoglobin 43.0, Troponin I < 0.028, C-Reactive Protein High Sensitivity 0.07, B-Type Natriuretic Peptide 580.2H, Total Protein 6.3L, Albumin 3.1L, Lipase < 4L 04/29/21 19:10: Prothrombin Time 14.0, INR Comment 1.0, Activated Partial Thromboplast Time 27, D-Dimer 1.13H 04/29/21 19:20: Erythrocyte Sedimentation Rate 19 04/30/21 05:25: White Blood Count 8.2, Red Blood Count 3.42L, Hemoglobin 9.6L, Hematocrit 30L, Mean Corpuscular Volume 87, Mean Corpuscular Hemoglobin 28, Mean Corpuscular Hemoglobin Concent 32, Red Cell Distribution Width 13.7, Platelet Count 272, Mean Platelet Volume 9.7, Immature Granulocyte % (Auto) 0, Neutrophils (%) (Auto) 50, Lymphocytes (%) (Auto) 38, Monocytes (%) (Auto) 7, Eosinophils (%) (Auto) 4, Basophils (%) (Auto) 1, Neutrophils # (Auto) 4.1, Lymphocytes # (Auto) 3.1, Monocytes # (Auto) 0.5, Eosinophils # (Auto) 0.3, Basophils # (Auto) 0.1, Immature Granulocyte # (Auto) 0.0, Sodium Level 140, Potassium Level 4.0, Chloride Level 108H, Carbon Dioxide Level 23, Anion Gap 9, Blood Urea Nitrogen 26H, Creatinine 1.15, Estimat Glomerular Filtration Rate 48, BUN/Creatinine Ratio 23, Glucose Level 184H, Calcium Level 8.5, B-Type Natriuretic Peptide 572.1H Radiology NAME: VALENTE HARPER MED REC#: [id number] PT STATUS: REG ER : 1960 PHYSICIAN: WARD MUNGUIA MD ADMIT DATE: 04/29/21/ER Signed Date of Exam:04/29/21 CHEST 1 VIEW, AP/PA ONLY EXAMINATION: Chest 1 view HISTORY: Chest pain COMPARISON: 04/10/2021 FINDINGS: Right port catheter tip terminates in the superior vena cava. Loop recorder is present. There is anterior cervical spine fusion. No pleural effusion or pneumothorax. No edema or pneumonia. Heart size is mildly enlarged. IMPRESSION: 1. Mildly enlarged heart, clear lungs. Dictated by: Dictated on workstation # [id number] Dict: 04/29/212137 Trans: 04/29/212208 [facility] [id number] Interpreted by: YOBANI NAVA MD Electronically signed by: YOBANI NAVA MD 04/29/212208 NAME: VALENTE HARPER [facility] REC#: [id number] PT STATUS: ADM Muna : 1960 PHYSICIAN: WARD MUNGUIA MD ADMIT DATE: 04/30/21 Draft Date of Exam:04/29/21 US VENOUS LOWER EXT CLEO PROCEDURE: US Venous Lower Ext Cleo. TECHNIQUE: Multiple real-time grayscale images were obtained over the lower extremities in various projections, bilaterally. Additional duplex Doppler and color Doppler images were also obtained. INDICATION: Pain and swelling. FINDINGS: The common femoral, femoral, popliteal veins and tibial veins demonstrate normal response to compression, augmentation and Valsalva. There are no abnormal lower extremity fluid collections or masses. IMPRESSION: No evidence of deep venous thrombosis in either lower extremity. Dictated on workstation # [id number] Dict: 04/30/21630 Trans: 04/30/2137 [facility] [id number] Interpreted by: OREN TRINIDAD MD Electronically signed by: ECG Impression ECG Initial ECG Rhythm: Normal Sinus A/P-Cardiology Assessment/Admission Diagnosis Chest pain of undetermined etiology LE cellulitis - management per medical services Provoked Left leg DVT following non-syncopal fall with prolonged stay (approx 14 hrs per pt) on the floor - was on OAC Eliquis 5mg BID for greater than 3 months Palpitations due to brief runs of PSVT and intermittent sinus tach, as documented on ILR recordings of January and Feb 2020 H/o syncope, mostly postural. 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 - Underwent stenting of mid LAD Resolute Integrity 2.[address] Ibrahim on 07/13/15; Last cath on 01/20/19: patent mid LAD stent with 50% post-stent (FFR 0.86), 50% distal LCX OM and D1 and prox and distal RCA. LVEF 65%, LVEDP 15 mmHg (essentially unchanged compared to previous caths). - MPI of 5-14-19 showed no evidence of any signif ischemia or infarction. LVEF 86% Echo LVEF 60-65%, grade 1 moody dysfunction, PASP 22 mmHg DM II, insulin-requiring, managed by her court bailiff, Dr Nash Hypertension Hyperlipidemia, managed by Dr Huertas Chronic tobacco use Chronic pain, mostly back pain, treated with chronic narcotic analgesics and multiple back surgeries for bulging discs (cervical and lumbar spines) Psoriatic arthritis Hardness of hearing H/o MIHIR, but noncompliant with therapy Approx 50% bilat ICA stenosis on carotid u/s of 10/02/20 Intermittent non-compliance with f/u H/o CKD that is followed by Dr. Court Saha of Nephrology services Discussion and Recomendations Chest pain of undetermined etiology - no evidence of ACS thus far Advise echocardiogram to eval structure and function Advise MPI to eval perfusion - will schedule for tomorrow BP not well controlled - adjust antihypertensive regimen Management of cellulitis with with medical services Monitor lab Replace electrolytes as indicated Further recs will be based on her hospital course We would like to thank medical services for this consult Clinical Quality Measures Smoking Cessation Counseling: Counseling-Symptomatic: 3-10 Minutes SHIRA BOOTHE Apr 30, 2021 08:07
[2021-04-30] MEDS: ENOXAPARIN 40 MG/0.4 ML (LOVENOX) SYR SC SCH (08:12)
[2021-04-30] MEDS: hydrALAZINE (APESOLINE) 20 MG/ML VIAL IV PRN ×2 (08:12→16:23)
--- NOTE | 2021-04-30 09:44 | Diagnostic Imaging Report ---
PROCEDURE: US Bilateral lower extremity arterial. TECHNIQUE: Multiple real-time grayscale images are obtained through both lower extremity arterial systems with color Doppler imaging and color Doppler spectral analysis. INDICATION: Bilateral leg pain. There are no prior studies available for comparison. FINDINGS: There is occlusion of the proximal right superficial femoral artery. There are collaterals in this area which reconstitute flow to the right lower extremity. However, the waveforms distal to the occlusion are all monophasic and the velocities are somewhat diminished. On the left, there is an abrupt alteration between the velocities of the proximal superficial femoral artery and mid superficial femoral artery. I suspect that there is a hemodynamically significant (70-80%) stenosis in this area. There is also an abrupt change in the velocity between the distal superficial femoral artery and popliteal artery and most likely there is a hemodynamically significant stenosis in this area as well. Monophasic flow is also seen throughout the left lower extremity. IMPRESSION: 1. There is diminished arterial blood flow to both lower extremities. This is secondary to occlusion of the proximal superficial femoral artery on the right and two hemodynamically significant stenoses of the superficial femoral artery on the left. 2. If further imaging is desired, then CTA of the aorta with bilateral would also be recommended. Dictated by: Dictated on workstation # [id number]
[2021-04-30] MEDS ORDERED: PANTOPRAZOLE 40 MG (PROTONIX) VIAL IV ONE (10:15)
[2021-04-30] MEDS ORDERED: lisINopril 10 MG (PRINIVIL) TABLET PO ONE (10:15)
[2021-04-30] MEDS ORDERED: FAMOTIDINE 20 MG (PEPCID) TABLET PO ONE (10:15)
[2021-04-30] MEDS ORDERED: REGADENOSON 0.4 MG/5 ML SYR (LEXISCAN) IV ONE (10:15)
[2021-04-30] MEDS ORDERED: FAMOTIDINE 20 MG (PEPCID) TABLET PO PRN (10:15)
[2021-04-30] MEDS ORDERED: morphine INJ 4 MG/ML 1 ML (VIAL/SYRINGE) IVP PRN (11:00)
[2021-04-30] MEDS: HYDROmorphone 2 MG/ML VIAL (DILAUDID) IVP PRN ×5 (11:41→23:33)
[2021-04-30] MEDS: inSUlin ASPART (NovoLOG) 1 UNIT/0.01 ML (CHARGE PER UNIT) SC SCH ×3 (11:41→20:32)
[2021-04-30] MEDS ORDERED: inSUlin ASPART (NovoLOG) 1 UNIT/0.01 ML (CHARGE PER UNIT) SC SCH ×2 (12:00→17:00)
--- NOTE | 2021-04-30 12:02 | Diagnostic Imaging Report ---
Perfusion lung scan INDICATION: Chest pain and elevated d-dimer This study was performed following administration 5.5 mCi of 99 technetium MAA. Multiple views of both lungs are obtained. There are no prior perfusion lung scans available for comparison. The plain film examination of the chest performed on 04/29/2021 noted mild cardiomegaly failed to show any sign of an acute abnormality. On this study there is fairly even distribution of the radiotracer throughout both lungs. There is no defect to suggest pulmonary embolus, IMPRESSION: There is a low probability for pulmonary embolus. Dictated by: Dictated on workstation # [id number]
[2021-04-30] MEDS ORDERED: INSU100I14 SQ (12:35)
[2021-04-30] MEDS ORDERED: DOXY100C2 PO (12:35)
[2021-04-30] MEDS ORDERED: BENZ-13 PO (12:35)
[2021-04-30] MEDS ORDERED: INSU100V5 SQ (12:35)
[2021-04-30] MEDS ORDERED: CEPH500C PO (12:35)
--- NOTE | 2021-04-30 13:05 | Consultation-Cardiology ---
HPI-Cardiology Cardiology Consultation: Date of Consultation 04/30/21 Time Seen by a Provider: 09:15 Date of Admission Attending Physician Jazmine Berry DO Admitting Physician Gerardo Greenwood DO Consulting Physician RICH FELIX MD, FACP, FACC HPI: Chief Complaint: Chest pain Ms. Urbano is a 61 yr old female admitted to 425 from the ED with c/o CP. She reports she has had increasing bilat LE swelling with redness which has been present for several days. She reports for the last several days she has been having episodes of chest pain which she describes as a pressure across her ACW. The discomfort will last for several hours and then gradually resolve. She states no assoc symptoms with it. It does not change with movement or inspiration. She reports nausea at times, but states it is unrelated to her episodes of chest pressure. No c/o palpitations. No c/o syncope or near syncope. Review of Systems-Cardiology Review of Systems Constitutional: No chills, No fever; malaise Eyes: No vision change Ears/Nose/Throat: No epistaxis, No recent hearing loss Respiratory: As described under HPI Cardiovascular: As described under HPI Gastrointestinal: No constipation; nausea; No vomiting Genitourinary: No dysuria, No hematuria : No Musculoskeletal: no symptoms reported Skin: other (redness, swelling to bilat LE) Psychiatric/Neurological: No anxiety, No depression, No seizure, No focal weakness, No syncope Hematologic: No bleeding abnormalities TYT-Pdapiq-Ngocgp Hx Patient Social History Smoking Status: Current Everyday Smoker 2nd Hand Smoke Exposure: No Have you traveled recently?: No Tobacco type used: Cigarettes Immunizations Up To Date Tetanus Booster (TDap): Unknown Date of Pneumonia Vaccine: Nov 06, 2019 Date of Influenza Vaccine: Nov 22, 2019 Past Medical History PMH As described under Assessment. Family Medical History Family Medical History: She reports her father had a stroke and high blood pressure. She reports her mother had CAD. She reports her brother has CAD, CVA and DM. Family History: Cancer of mouth 19 FATHER ( of esophogeal cancer.) Cardiovascular disease 19 MOTHER G8 BROTHER Completed stroke 19 FATHER G8 BROTHER Diabetes mellitus G8 BROTHER FH: lung cancer 19 MOTHER Hypertension 19 FATHER Kidney disease 19 FATHER Myocardial infarction 19 MOTHER G8 BROTHER Respiratory disorder No Family History of: AIDS Allergies and Home Medications Allergies Coded Allergies: ketorolac (Verified Allergy, Severe, ANAPHYLAXIS, PT TAKES ASA AT HOME, 03/06/19) ondansetron (Verified Allergy, Intermediate, RASH, 03/06/19) RASH/ HIVES scopolamine (Verified Allergy, Mild, Rash, 03/21/19) exenatide (Verified Allergy, Unknown, NAUSEA, 03/06/19) NON STOP VOMITING latex (Verified Allergy, Unknown, RASH, 03/06/19) metoclopramide (Verified Allergy, Unknown, RESTLESS LEGS, 03/06/19) erythromycin base (Verified Adverse Reaction, Unknown, 03/21/19) Home Medications Aspirin 81 Mg Tablet.dr, 81 MG PO DAILY, (Reported) Last Action: Reviewed Atorvastatin Calcium 20 Mg Tablet, 20 MG PO HS, (Reported) Last Action: Reviewed Benzonatate 100 Mg Capsule, 100 MG PO TID PRN for COUGH, (Reported) Last Action: Reviewed Cephalexin 500 Mg Capsule, 500 MG PO BID, (Reported) FILLED 04-22-2021 #20/10 DAY SUPPLY Last Action: Reviewed Doxycycline Hyclate 100 Mg Capsule, 100 MG PO BID, (Reported) FILLED 04-23-2021 #14/7 DAY SUPPLY Last Action: Reviewed Gabapentin 800 Mg Tablet, 1,600 MG PO HS, (Reported) TAKES 2 (800MG) TABLETS Last Action: Reviewed Gabapentin 800 Mg Tablet, 800 MG PO DAILY, (Reported) Last Action: Reviewed Insulin Aspart 300 Units/3 Ml Solution, 5 UNITS SQ AC, (Reported) LAST FILLED 09-20-2020 #10 PENS Last Action: Reviewed Insulin Determir 1,000 Units/10 Ml Soln, 15 UNITS SQ DAILY, (Reported) Last Action: Reviewed Metoprolol Succinate 25 Mg Tab.er.24h, 25 MG PO DAILY, (Reported) Last Action: Reviewed Oxycodone HCl 15 Mg Tablet, 15 MG PO QID, (Reported) Last Action: Reviewed Pantoprazole Sodium 40 Mg Tablet.dr, 40 MG PO BIDAC, (Reported) Last Action: Reviewed Promethazine HCl 25 Mg Tablet, 25 MG PO TID PRN for NAUSEA/VOMITING, (Reported) Last Action: Reviewed Patient Home Medication List Home Medication List Reviewed: Yes Physical Exam-Cardiology Physical Exam Vital Signs/I&O 04/30/21 04/30/21 04/30/21 04/30/21 02:10 02:23 02:39 02:42 Temp 36.8 37.0 Pulse 70 68 69 Resp 16 16 B/P (MAP) 174/86 (115) 175/88 Pulse Ox 97 97 97 O2 Delivery Room Air Room Air Room Air 04/30/21 04/30/21 04/30/21 04/30/21 04:36 07:35 08:00 08:00 Temp 36.8 36.1 Pulse 73 65 71 Resp 20 18 B/P (MAP) 176/74 (108) 186/93 (124) Pulse Ox 96 98 O2 Delivery Room Air Room Air Room Air 04/30/21 11:30 Temp 36.0 Pulse 66 Resp 16 B/P (MAP) 199/79 (119) Pulse Ox 97 O2 Delivery Room Air Capillary Refill : Less Than 3 Seconds Constitutional: AAO x 3, well-developed, well-nourished HEENT: PERRL, hearing is well preserved, oral hygience is good Neck: No carotid bruit; carotid pulses are 2 + bilaterally Respiratory: No accessory muscle use, No respiratory distress; chest expansion is symmetric, chest is bilaterally symmetric, lungs clear to auscultation Cardiovascular: regular rate-rhythm; No JVD; S1 and S2 Gastrointestinal: tender (epigastric), soft Extremities: no lower extremity edema bilateral Neurologic/Psychiatric: grossly intact (moves all extremities) Skin: other (bilat LE swelling with redness and warmth, L>R) Data Review Labs Laboratory Tests 04/29/21 18:30: White Blood Count 8.7, Red Blood Count 3.69L, Hemoglobin 10.4L, Hematocrit 32L, Mean Corpuscular Volume 88, Mean Corpuscular Hemoglobin 28, Mean Corpuscular Hemoglobin Concent 32, Red Cell Distribution Width 13.7, Platelet Count 279, Mean Platelet Volume 9.6, Immature Granulocyte % (Auto) 0, Neutrophils (%) (Auto) 65, Lymphocytes (%) (Auto) 26, Monocytes (%) (Auto) 4, Eosinophils (%) (Auto) 4, Basophils (%) (Auto) 1, Neutrophils # (Auto) 5.7, Lymphocytes # (Auto) 2.2, Monocytes # (Auto) 0.4, Eosinophils # (Auto) 0.3, Basophils # (Auto) 0.1, Immature Granulocyte # (Auto) 0.0, Sodium Level 137, Potassium Level 4.3, Chloride Level 105, Carbon Dioxide Level 20L, Anion Gap 12, Blood Urea Nitrogen 24H, Creatinine 1.24, Estimat Glomerular Filtration Rate 44, BUN/Creatinine Ratio 19, Glucose Level 219H, Calcium Level 8.5, Corrected Calcium 9.2, Magnesium Level 1.4L, Total Bilirubin 0.5, Aspartate Amino Transf (AST/SGOT) 12, Alanine Aminotransferase (ALT/SGPT) 10, Alkaline Phosphatase 99, Myoglobin 43.0, Troponin I < 0.028, C-Reactive Protein High Sensitivity 0.07, B-Type Natriuretic Peptide 580.2H, Total Protein 6.3L, Albumin 3.1L, Lipase < 4L 04/29/21 19:10: Prothrombin Time 14.0, INR Comment 1.0, Activated Partial Thromboplast Time 27, D-Dimer 1.13H 04/29/21 19:20: Erythrocyte Sedimentation Rate 19 04/30/21 05:25: White Blood Count 8.2, Red Blood Count 3.42L, Hemoglobin 9.6L, Hematocrit 30L, Mean Corpuscular Volume 87, Mean Corpuscular Hemoglobin 28, Mean Corpuscular Hemoglobin Concent 32, Red Cell Distribution Width 13.7, Platelet Count 272, Mean Platelet Volume 9.7, Immature Granulocyte % (Auto) 0, Neutrophils (%) (Auto) 50, Lymphocytes (%) (Auto) 38, Monocytes (%) (Auto) 7, Eosinophils (%) (Auto) 4, Basophils (%) (Auto) 1, Neutrophils # (Auto) 4.1, Lymphocytes # (Auto) 3.1, Monocytes # (Auto) 0.5, Eosinophils # (Auto) 0.3, Basophils # (Auto) 0.1, Immature Granulocyte # (Auto) 0.0, Sodium Level 140, Potassium Level 4.0, Chloride Level 108H, Carbon Dioxide Level 23, Anion Gap 9, Blood Urea Nitrogen 26H, Creatinine 1.15, Estimat Glomerular Filtration Rate 48, BUN/Creatinine Ratio 23, Glucose Level 184H, Calcium Level 8.5, B-Type Natriuretic Peptide 572.1H A/P-Cardiology Assessment/Admission Diagnosis Laboratory Tests 04/29/21 18:30 04/30/21 05:25 Chest pain of undetermined etiology, no evidence of ACS so far - Echo on 04/30/21: LVEF 55-60%, grade 1 moody dysfunction, mild to mod enlargement of LA, PASP 40-45 mmHg LE cellulitis - management per Medical services PAD - arterial u/s 04/30/21: 1. There is diminished arterial blood flow to both lower extremities. This is secondary to occlusion of the proximal superficial femoral artery on the right and 2 hemodynamically significant stenoses of the superficial femoral artery on the left. Provoked Left leg DVT following non-syncopal fall with prolonged stay (approx 14 hrs per pt) on the floor - was on OAC Eliquis 5mg BID for greater than 3 months Palpitations due to brief runs of PSVT and intermittent sinus tach, as documented on ILR recordings of January and Feb 2020 H/o syncope, mostly postural. 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 LVEF 65%, LVEDP 15 mmHg (essentially unchanged compared to previous caths). - MPI of 04-04-19 showed no evidence of any signif ischemia or infarction. LVEF 86% DM II, insulin-requiring, managed by her machinist mechanic, Dr Nash Hypertension Hyperlipidemia, managed by Dr Huertas Chronic tobacco use Chronic pain, mostly back pain, treated with chronic narcotic analgesics and multiple back surgeries for bulging discs (cervical and lumbar spines) Psoriatic arthritis Hardness of hearing H/o MIHIR, but noncompliant with therapy Approx 50% bilat ICA stenosis on carotid u/s of 10/02/20 Intermittent non-compliance with f/u H/o CKD that is followed by Dr. Court Saha of Nephrology services Discussion and Recomendations Advise MPI to eval perfusion - will schedule for tomorrow Will plan on peripheral angio to eval/treat PAD BP not well controlled - adjust antihypertensive regimen Management of cellulitis with with medical services Monitor lab Replace electrolytes as indicated Further recs will be based on her hospital course We would like to thank Medical services for this consult Clinical Quality Measures Smoking Cessation Counseling: Counseling-Symptomatic: 3-10 Minutes RICH FELIX MD FACP FAC CCDS Apr 30, 2021 13:05
--- NOTE | 2021-04-30 13:43 | History & Physical-Hospitalist ---
History of Present Illness HPI/Chief Complaint Itzel Urbano is a 61-year-old female with HTN, insulin-dependent diabetes mellitus with multiple complications including polyneuropathy, gastroparesis, CKD 3, who presented with worsening left leg cellulitis. She says her symptoms have been present for a week. She was started on antibiotics at that time but she has failed to improve. She still has swelling, redness, tenderness, and warmth. She denies fevers and chills. She denies chest pain. She denies shortness of breath and cough. She denies abdominal pain, nausea, vomiting, and diarrhea. She has no other complaints or concerns. Her diabetes has been well controlled at home recently. Source: patient Exam Limitations: no limitations Date Seen 04/30/21 Time Seen by a Provider: 10:05 Attending Physician Jazmine Berry DO PCP Gerardo Greenwood DO Referring Physician Date of Admission Apr 30, 2021 at 01:04 Home Medications & Allergies Home Medications Reviewed patient Home Medication Reconciliation performed by pharmacy medication reconciliations electrical manufacturing technician and/or nursing. Patients Allergies have been reviewed. Allergies Allergies Coded Allergies ketorolac (Verified Allergy, Severe, ANAPHYLAXIS, PT TAKES ASA AT HOME, 03/06/19) ondansetron (Verified Allergy, Intermediate, RASH, 03/06/19) RASH/ HIVES scopolamine (Verified Allergy, Mild, Rash, 03/21/19) exenatide (Verified Allergy, Unknown, NAUSEA, 03/06/19) NON STOP VOMITING latex (Verified Allergy, Unknown, RASH, 03/06/19) metoclopramide (Verified Allergy, Unknown, RESTLESS LEGS, 03/06/19) erythromycin base (Verified Adverse Reaction, Unknown, 03/21/19) Past Mufbwxq-Gtkucg-Lckvoj Hx Patient Social History Tobacco Use?: Yes Tobacco type used: Cigarettes Smoking Status: Current Everyday Smoker Immunizations Up To Date Date of Influenza Vaccine: Nov 22, 2019 Tetanus Booster (TDap): Unknown Hepatitis A: No Hepatitis B: No PED Vaccines UTD: No Date of Pneumonia Vaccine: Nov 06, 2019 Seasonal Allergies Seasonal Allergies: Yes Current Status Advance Directives: Yes Advance Directive Location: not sure where it is Communicates: Verbally Primary Language: Persian Preferred Spoken Language: Persian Is interpretation needed?: No Implanted or Applied Medical D: Port-a-cath Past Medical History Surgeries: Cardiac, Coronary Stent, Ear Surgery, Gallbladder, Orthopedic, Renal Chronic Bronchitis, Sleep Apnea Currently Using CPAP: No Currently Using BIPAP: No Chronic Edema/Swelling, Coronary Artery Disease, Deep Vein Thrombosis, High Cholesterol, Hypertension, Palpitations Headaches /Migraines, Neuropathy 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 Diabetes Mellitus Type 1 with poor control 2. Hypertension 3.Hyperlipidemia 4.Chronic Kidney Disease 5. Irritable Bowel Disorder 6. Fibromyalgia 7.Psoriasis 8.chronic neck and back pain- on chronic narcotics from pain management 9. hx of blood clots in the upper extremities 10. Anxiety 11. Tobaccoism 12. 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 GERD 14. Diverticulosis 15. Seizure Disorder PSH: 1.Renal stent 2.cholecystectomy 3.Laminectomy 5.ear tubes as a child Family Medical History Reviewed Nursing Family Hx Cancer of mouth 19 FATHER ( of esophogeal cancer.) Cardiovascular disease 19 MOTHER G8 BROTHER Completed stroke 19 FATHER G8 BROTHER Diabetes mellitus G8 BROTHER FH: lung cancer 19 MOTHER Hypertension 19 FATHER Kidney disease 19 FATHER Myocardial infarction 19 MOTHER G8 BROTHER Respiratory disorder No Family History of: AIDS Cancer, Diabetes, Hypertension SOCIAL HISTORY: -ETOH--RARELY USES -DRUGS--Rx NARCOTIC ABUSE -SMOKES 1 PPD PSH: -LINQ DEVICE PLACED 11/09/19 FOR REPORTED PALPITATIONS X 6 MONTHS, SINCE PERCOCET WAS DC'D -MULTIPLE CARDIAC CATHS--STENT X 1 TO LAD 07/13/15. LAST CATH 01/18/19--NO INTERVENTION -LUMBAR SPINE FUSION X 3--12/2002, 04/2007, AND 05/2007 -LUMBAR DISCECTOMY 10/2000--? LAMINECTOMY? -CERVICAL SPINE FUSION 11/2006 -CHOLECYSTECTOMY 1984 -BMT'S -LITHOTRIPSY AND RIGHT URETERAL STENT -EGD'S WITH ESOPHAGEAL DILATIONS -COLONOSCOPIES, LAST ONE 03/08/19 -PORT RIGHT CHEST -LEFT SHOULDER ROTATOR CUFF REPAIR 05/01/20--DR. ZAFUTA -CONTINUOUS GLUCOSE MONITOR PRESENT 06/25/20--LLQ OF ABDOMEN--NOT PRESENT 10/2020 -BILATERAL CATARACT SURGERY 10/2020 Review of Systems Constitutional: no symptoms reported EENTM: no symptoms reported Respiratory: no symptoms reported Cardiovascular: no symptoms reported Gastrointestinal: no symptoms reported Genitourinary: no symptoms reported Musculoskeletal: no symptoms reported Skin: no symptoms reported Psychiatric/Neurological: No Symptoms Reported Physical Exam Physical Exam Vital Signs Vital Signs - First Documented 04/29/21 04/29/21 18:08 19:00 Temp 36.2 Pulse 79 Resp 16 B/P (MAP) 210/94 (132) Pulse Ox 98 O2 Delivery Room Air Capillary Refill : Less Than 3 Seconds Height, Weight, BMI Height: 5'1.00" Weight: 122lbs. 1.0oz. [id number]; 27.26 BMI Method:Estimated General Appearance: No Apparent Distress, WD/WN HEENT: PERRL/EOMI, Pharynx Normal Neck: Normal Inspection, Supple Respiratory: Lungs Clear, Normal Breath Sounds, No Respiratory Distress Cardiovascular: Regular Rate, Rhythm, No Murmur Gastrointestinal: Normal Bowel Sounds, Non Tender, Soft Extremity: Inflammation Neurologic/Psychiatric: Alert, Oriented x3, Normal Mood/Affect Skin: Erythema (left leg with swelling and warmth) Results Results/Procedures Labs Laboratory Tests 04/29/21 18:30 04/30/21 05:25 Patient resulted labs reviewed. Imaging: Reviewed Imaging Report Assessment/Plan Admission Diagnosis Cellulitis of left lower extremity Admission Status: Inpatient Order (span 2 midnights) Reason for Inpatient Admission: PAD likely requiring intervention Assessment and Plan Cellulitis of left lower extremity Peripheral arterial disease Failure of outpatient antibiotics Stop Keflex Begin Rocephin Continue doxycycline Arterial ultrasound revealed 2 blockages in the left superficial femoral artery and one blockage in the right proximal superficial femoral artery Cardiology consulted, appreciate assistance Planning for peripheral angiogram Chest pain CAD Troponin remains normal Planning for stress test tomorrow CKD3 Creatinine 1.15, appears to be near baseline, monitor HTN Continue Toprol Added Lisinopril Hydralazine as needed DVT prophylaxis: Lovenox Diagnosis/Problems Diagnosis/Problems (1) Cellulitis of left leg Status: Acute (2) IDDM (insulin dependent diabetes mellitus) Status: Acute (3) PAD (peripheral artery disease) Status: Acute Clinical Quality Measures Smoking Cessation Counseling: Counseling-Symptomatic: 3-10 Minutes LEEANN,JUAN DAVID M MD Apr 30, 2021 13:43
[2021-04-30] MEDS: cefTRIAXone 1,000 MG in WATER (STERILE) FOR INJECTION 10 ML IV SCH (15:19)
[2021-05-01] VITALS (7 sets, daily range): BP systolic 146–200; BP diastolic 69–86
[2021-05-01] MEDS ORDERED: PROMETHAZINE INJ 25 MG/ML (PHENERGAN) AMP IM PRN
[2021-05-01] MEDS: HYDROmorphone 2 MG/ML VIAL (DILAUDID) IVP PRN ×4 (01:50→23:33)
[2021-05-01] MEDS: hydrALAZINE (APESOLINE) 20 MG/ML VIAL IV PRN ×3 (02:03→23:23)
[2021-05-01 05:23] LABS: BASOPHILS # (AUTO) 0.1 10^3/uL (0.0-0.1); BASOPHILS % (AUTO) 1 % (0-10); EOSINOPHILS # (AUTO) 0.3 10^3/uL (0.0-0.3); EOSINOPHILS % (AUTO) 3 % (0-10); HEMATOCRIT 29 % (35-52); HEMOGLOBIN 9.2 g/dL (11.5-16.0); LYMPHOCYTES # (AUTO) 2.8 10^3/uL (1.0-4.0); LYMPHOCYTES % (AUTO) 35 % (12-44); MEAN CORPUSCULAR HEMOGLOBIN 28 pg (25-34); MEAN CORPUSCULAR HGB CONC 32 g/dL (32-36); MEAN CORPUSCULAR VOLUME 87 fL (80-99); MONOCYTES # (AUTO) 0.4 10^3/uL (0.0-1.0); MONOCYTES % (AUTO) 6 % (0-12); NEUTROPHILS # (AUTO) 4.4 10^3/uL (1.8-7.8); NEUTROPHILS % (AUTO) 55 % (42-75); PLATELET COUNT 241 10^3/uL (130-400)
[2021-05-01 05:33] LABS: POTASSIUM 4.1 MMOL/L (3.6-5.0)
[2021-05-01 05:34] LABS: CALCIUM 8.2 MG/DL (8.5-10.1)
[2021-05-01 05:38] LABS: CREATININE SERUM 1.09 MG/DL (0.60-1.30)
[2021-05-01 05:40] LABS: MAGNESIUM 1.8 MG/DL (1.6-2.4)
[2021-05-01] MEDS: inSUlin ASPART (NovoLOG) 1 UNIT/0.01 ML (CHARGE PER UNIT) SC SCH ×4 (05:48→20:29)
[2021-05-01] MEDS: ENOXAPARIN 40 MG/0.4 ML (LOVENOX) SYR SC SCH (06:45)
[2021-05-01] MEDS: DOXYCYCLINE 100 MG (VIBRAMYCIN) TABLET PO SCH ×2 (06:45→18:40)
[2021-05-01] MEDS: meTOproloL SUCCINATE 50 MG (TOPROL XL) TAB PO SCH (09:32)
[2021-05-01] MEDS: lisINopril 10 MG (PRINIVIL) TABLET PO SCH (09:32)
[2021-05-01] MEDS: PANTOPRAZOLE 40 MG (PROTONIX) TAB PO SCH (09:32)
[2021-05-01] MEDS: CATHETER FLUSH 10 ML SYR IV PRN ×2 (10:39→19:53)
--- NOTE | 2021-05-01 11:32 | Progress Note - Hospitalist ---
Subjective HPI/CC On Admission Date Seen by Provider: May 01, 2021 Time Seen by Provider: 09:45 Itzel Urbano is a 61-year-old female with HTN, insulin-dependent diabetes mellitus with multiple complications including polyneuropathy, gastroparesis, CKD 3, who presented with worsening left leg cellulitis. She says her symptoms have been present for a week. She was started on antibiotics at that time but she has failed to improve. She still has swelling, redness, tenderness, and warmth. She denies fevers and chills. She denies chest pain. She denies shortness of breath and cough. She denies abdominal pain, nausea, vomiting, and diarrhea. She has no other complaints or concerns. Her diabetes has been well controlled at home recently. Subjective/Events-last exam She is feeling nauseous today. She says she needs Phenergan with Benadryl. She is not having any chest pain. Her cellulitis is improving. Objective Exam Vital Signs Vital Signs Date Time Temp Pulse Resp B/P (MAP) Pulse Ox O2 Delivery O2 Flow Rate FiO2 05/01/21 08:00 97 Room Air 05/01/21 08:00 36.5 88 19 166/72 (103) Capillary Refill : Less Than 3 Seconds General Appearance: Anxious, Chronically ill, Mild Distress Neck: Normal Inspection, Supple Respiratory: Lungs Clear, Normal Breath Sounds, No Respiratory Distress Cardiovascular: Regular Rate, Rhythm, No Murmur Gastrointestinal: Normal Bowel Sounds, Non Tender, Soft Extremity: Non Tender, Inflammation Neurologic/Psychiatric: Alert, Oriented x3, No Motor/Sensory Deficits Skin: Erythema Results/Procedures Lab Laboratory Tests 05/01/21 05:07 Patient resulted labs reviewed. Imaging: Reviewed Imaging Report Assessment/Plan Assessment and Plan Assess & Plan/Chief Complaint Cellulitis of left lower extremity Peripheral arterial disease Failure of outpatient antibiotics Continue Rocephin and doxycycline Arterial ultrasound revealed 2 blockages in the left superficial femoral artery and one blockage in the right proximal superficial femoral artery Cardiology consulted, appreciate assistance Planning for peripheral angiogram Chest pain CAD Troponin remained normal Planning for stress test today Nausea and vomiting Many antiemetic allergies stated Only wants Phenergan with Benadryl CKD3 Creatinine 1.05, appears to be near baseline, monitor HTN Continue Toprol and Lisinopril Hydralazine as needed DVT prophylaxis: Lovenox Diagnosis/Problems Diagnosis/Problems (1) Cellulitis of left leg Status: Acute (2) IDDM (insulin dependent diabetes mellitus) Status: Acute (3) PAD (peripheral artery disease) Status: Acute Clinical Quality Measures Smoking Cessation Counseling: Counseling-Symptomatic: 3-10 Minutes JUAN DAVID BRADSHAW MD May 01, 2021 11:32
[2021-05-01] MEDS ORDERED: PROMETHAZINE INJ 25 MG/ML (PHENERGAN) AMP ONE (12:03)
[2021-05-01] MEDS ORDERED: ONDANSETRON 4 MG/2 ML (SDV) Z0FRAN IVP PRN (13:30)
[2021-05-01] MEDS: cefTRIAXone 1,000 MG in WATER (STERILE) FOR INJECTION 10 ML IV SCH (14:48)
--- NOTE | 2021-05-01 17:32 | Progress Note - Cardiology ---
Cardiology SOAP Progress Note Subjective: No cp or palp or syncope Continues with leg discomfort, bilateral Gen weakness and malaise Objective: I&O/Vital Signs 05/01/21 05/01/21 05/01/21 05/01/21 07:00 08:00 08:00 12:00 Temp 36.5 36.5 Pulse 91 88 78 Resp 19 16 B/P (MAP) 166/72 (103) 167/77 (107) Pulse Ox 95 97 97 O2 Delivery Room Air Room Air Room Air 05/01/21 05/01/21 13:00 15:30 Temp 36.2 Pulse 80 77 Resp 18 B/P (MAP) 186/73 (110) Pulse Ox 97 O2 Delivery Room Air 05/01/21 00:00 Intake Total 1420 ml Output Total 450 ml Balance 970 ml Weight (Pounds): 122 Weight (Ounces): 1.0 Weight (Calculated Kilograms): 55.874126 Constitutional: AAO x 3, well-developed, well-nourished Respiratory: No accessory muscle use, No respiratory distress; chest expansion is symmetric, chest is bilaterally symmetric, lungs clear to auscultation Cardiovascular: regular rate-rhythm; No JVD; S1 and S2 Gastrointestional: tender (epigastric), soft Extremities: no lower extremity edema bilateral Neurologic/Psychiatric: grossly intact (moves all extremities) Skin: other (bilat LE swelling with redness and warmth, L>R) Results/Procedures: Labs Laboratory Tests 04/30/21 17:48: Glucometer 83 04/30/21 20:15: Glucometer 164H 05/01/21 05:07: White Blood Count 8.0, Red Blood Count 3.28L, Hemoglobin 9.2L, Hematocrit 29L, Mean Corpuscular Volume 87, Mean Corpuscular Hemoglobin 28, Mean Corpuscular Hemoglobin Concent 32, Red Cell Distribution Width 13.9, Platelet Count 241, Mean Platelet Volume 10.0, Immature Granulocyte % (Auto) 0, Neutrophils (%) (Auto) 55, Lymphocytes (%) (Auto) 35, Monocytes (%) (Auto) 6, Eosinophils (%) (Auto) 3, Basophils (%) (Auto) 1, Neutrophils # (Auto) 4.4, Lymphocytes # (Auto) 2.8, Monocytes # (Auto) 0.4, Eosinophils # (Auto) 0.3, Basophils # (Auto) 0.1, Immature Granulocyte # (Auto) 0.0, Sodium Level 139, Potassium Level 4.1, Chloride Level 108H, Carbon Dioxide Level 22, Anion Gap 9, Blood Urea Nitrogen 31H, Creatinine 1.09, Estimat Glomerular Filtration Rate 51, BUN/Creatinine Ratio 28, Glucose Level 132H, Calcium Level 8.2L, Magnesium Level 1.8 05/01/21 10:46: Glucometer 170H 05/01/21 16:04: Glucometer 83 Laboratory Tests 04/29/21 18:30 04/30/21 05:25 05/01/21 05:07 A/P: Assessment: Chest pain of undetermined etiology, non-cardiac - Echo on 04/30/21: LVEF 55-60%, grade 1 moody dysfunction, mild to mod enlargement of LA, PASP 40-45 mmHg - MPI on 05/01/21: no ischemia or infarction, LVEF 74% LE cellulitis - management per Medical services PAD - arterial u/s 04/30/21: 1. There is diminished arterial blood flow to both lower extremities. This is secondary to occlusion of the proximal superficial femoral artery on the right and 2 hemodynamically significant stenoses of the superficial femoral artery on the left. Palpitations due to brief runs of PSVT and intermittent sinus tach, as documented on ILR recordings of January and Feb 2020 H/o syncope, mostly postural. 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 LVEF 65%, LVEDP 15 mmHg (essentially unchanged compared to previous caths). - MPI on 05/01/21: no ischemia or infarction, LVEF 74% DM II, insulin-requiring, managed by her security attendant, Dr Nash Hypertension Hyperlipidemia, managed by Dr Huertas Chronic tobacco use Chronic pain, mostly back pain, treated with chronic narcotic analgesics and multiple back surgeries for bulging discs (cervical and lumbar spines) Psoriatic arthritis Hardness of hearing H/o MIHIR, but noncompliant with therapy Approx 50% bilat ICA stenosis on carotid u/s of 10/02/20 Intermittent non-compliance with f/u H/o CKD that is followed by Dr. Court Saha of Nephrology services Plan: I discussed her cardiac and peripheral w/u with her Will plan on peripheral angio to eval/treat PAD. Plan for tomorrow late afternoon BP not well controlled - adjust antihypertensive regimen Management of cellulitis with with medical services Monitor lab Replace electrolytes as indicated Clinical Quality Measures Smoking Cessation Counseling: Counseling-Symptomatic: 3-10 Minutes RICH FELIX MD FACP FAC CCDS May 01, 2021 17:32
--- NOTE | 2021-05-01 19:09 | STRESS TEST ---
DATE OF SERVICE: 05/01/2021 RESTING AND POST REGADENOSON TECHNETIUM-99M TETROFOSMIN SPECT CT IMAGING ORDERING PHYSICIAN: Glenna Joya APRN PRIMARY PHYSICIAN: Dr. Greenwood. ATTENDING PHYSICIAN: Dr. Yi. CLINICAL DIAGNOSIS: Chest discomfort. Baseline images were carried out after injection of 10.98 mCi of technetium-99m Tetrofosmin. This was followed by 0.4 mg regadenoson and 30.3 mCi of technetium-99m Tetrofosmin for stress imaging. The electrocardiogram showed sinus rhythm at baseline. It did not change significantly with the regadenoson infusion. The patient noted nausea and dry heaving with the regadenoson infusion. This resolved in several minutes. Review of images at rest and following stress does not indicate any significant perfusion defects consistent with myocardial ischemia or infarction. Gated images show normal global left ventricular systolic function with normal regional wall motion. Left ventricular ejection fraction is calculated to be 74%. Left ventricular end diastolic volume is 57 mL. TID is absent (0.98). CONCLUSIONS: 1. No evidence of any significant myocardial ischemia or infarction. 2. Normal regional wall motion. 3. Normal global left ventricular systolic function with a calculated ejection fraction of 74%. Job ID: [id number] DocumentID: [id number] Dictated Date: 05/01/2021 17:12:15 [employer]visor [employer] Office Date: 05/01/2021 19:09:02 Dictated By: RICH FELIX MD, MA, FACP, FACC,
[2021-05-02] VITALS (10 sets, daily range): BP systolic 134–177; BP diastolic 63–75
[2021-05-02] MEDS: HYDROmorphone 2 MG/ML VIAL (DILAUDID) IVP PRN ×8 (01:32→22:25)
[2021-05-02] MEDS: inSUlin ASPART (NovoLOG) 1 UNIT/0.01 ML (CHARGE PER UNIT) SC SCH ×4 (05:27→21:26)
[2021-05-02] MEDS: DOXYCYCLINE 100 MG (VIBRAMYCIN) TABLET PO SCH ×2 (06:11→16:53)
[2021-05-02] MEDS: ENOXAPARIN 40 MG/0.4 ML (LOVENOX) SYR SC SCH (06:11)
[2021-05-02] MEDS: PANTOPRAZOLE 40 MG (PROTONIX) TAB PO SCH (08:07)
[2021-05-02] MEDS: meTOproloL SUCCINATE 50 MG (TOPROL XL) TAB PO SCH (08:07)
[2021-05-02] MEDS: lisINopril 10 MG (PRINIVIL) TABLET PO SCH (08:07)
[2021-05-02] MEDS: NS IV 1000 ML 1,000 ML IV SCH (08:23)
[2021-05-02 08:40] LABS: CALCIUM 8.4 MG/DL (8.5-10.1); CREATININE SERUM 1.11 MG/DL (0.60-1.30); MAGNESIUM 2.2 MG/DL (1.6-2.4)
--- NOTE | 2021-05-02 11:43 | Progress Note - Hospitalist ---
Subjective HPI/CC On Admission Date Seen by Provider: May 02, 2021 Time Seen by Provider: 09:30 Itzel Urbano is a 61-year-old female with HTN, insulin-dependent diabetes mellitus with multiple complications including polyneuropathy, gastroparesis, CKD 3, who presented with worsening left leg cellulitis. She says her symptoms have been present for a week. She was started on antibiotics at that time but she has failed to improve. She still has swelling, redness, tenderness, and warmth. She denies fevers and chills. She denies chest pain. She denies shortness of breath and cough. She denies abdominal pain, nausea, vomiting, and diarrhea. She has no other complaints or concerns. Her diabetes has been well controlled at home recently. Subjective/Events-last exam She is still not feeling well this morning. She reports nausea. Her cellulitis is getting better. She denies any fevers. She denies chest pain. Objective Exam Vital Signs Vital Signs Date Time Temp Pulse Resp B/P (MAP) Pulse Ox O2 Delivery O2 Flow Rate FiO2 05/02/21 11:25 36.3 74 16 177/75 (109) 96 Room Air Capillary Refill : Less Than 3 Seconds General Appearance: No Apparent Distress, Chronically ill Respiratory: Lungs Clear, Normal Breath Sounds, No Respiratory Distress Cardiovascular: Regular Rate, Rhythm, No Murmur Gastrointestinal: Normal Bowel Sounds, Soft, Tenderness Extremity: Non Tender, Inflammation, Swelling Neurologic/Psychiatric: Alert, Oriented x3, Depressed Affect Skin: Erythema (Left lower extremity mild erythema and warmth improving) Results/Procedures Lab Laboratory Tests 05/02/21 08:00 Patient resulted labs reviewed. Imaging: Reviewed Imaging Report Assessment/Plan Assessment and Plan Assess & Plan/Chief Complaint Cellulitis of left lower extremity Peripheral arterial disease Failure of outpatient antibiotics Continue Rocephin and doxycycline Arterial ultrasound revealed 2 blockages in the left superficial femoral artery and one blockage in the right proximal superficial femoral artery Cardiology consulted, appreciate assistance Planning for peripheral angiogram today Chest pain CAD Troponin remained normal Stress test negative Nausea and vomiting Many antiemetic allergies stated Given Zofran without evidence of allergic reaction CKD3 Creatinine 1.11, appears to be near baseline, monitor HTN Continue Toprol and Lisinopril Hydralazine as needed DVT prophylaxis: Lovenox Diagnosis/Problems Diagnosis/Problems (1) Cellulitis of left leg Status: Acute (2) IDDM (insulin dependent diabetes mellitus) Status: Acute (3) PAD (peripheral artery disease) Status: Acute Clinical Quality Measures Smoking Cessation Counseling: Counseling-Symptomatic: 3-10 Minutes JUAN DAVID BRADSHAW MD May 02, 2021 11:43
[2021-05-02] MEDS ORDERED: LIDOCAINE 1% INJ 20 ML 20 ML VIAL ONE (12:58)
[2021-05-02] MEDS ORDERED: NS IV 1000 ML 0 ML ONE (12:59)
[2021-05-02] MEDS ORDERED: fentaNYL INJ 100 MCG/2 ML AMP ONE ×2 (13:02→15:27)
[2021-05-02] MEDS ORDERED: MIDAZOLAM 5 MG/5 ML (VERSED) VIAL ONE (13:02)
[2021-05-02] MEDS ORDERED: HEParin (CATH LAB) 2,000 ML IV ONE (13:03)
[2021-05-02] MEDS ORDERED: diphenhydrAMINE 50 MG/ML INJ (BENADRYL) ONE (14:54)
[2021-05-02] MEDS ORDERED: meTOprolol 5 MG/5 ML (LOPRESSOR) VIAL ONE (15:23)
[2021-05-02] MEDS ORDERED: NS IV 1000 ML 1,000 ML IV SCH (15:30)
[2021-05-02] MEDS ORDERED: PATIENT MAY USE OWN MEDS, ALL PO SCH (15:30)
[2021-05-02] MEDS: cefTRIAXone 1,000 MG in WATER (STERILE) FOR INJECTION 10 ML IV SCH (15:34)
[2021-05-02] MEDS ORDERED: amLODIPine 10 MG (NORVASC) TAB PO NR (15:45)
[2021-05-02] MEDS ORDERED: ASPIRIN 81 MG CHEW (CHILDREN'S ASA) PO NR (15:45)
[2021-05-02] MEDS ORDERED: meTOprolol SUCCINATE 100 MG (TOPROL XL) TAB PO NR (15:45)
--- NOTE | 2021-05-02 15:47 | Progress Note - Cardiology ---
Cardiology SOAP Progress Note Subjective: Some gen malaise No cp or palp or syncope No shortness of breath at rest Leg discomfort and redness improving Objective: I&O/Vital Signs 05/02/21 05/02/21 05/02/21 05/02/21 03:58 07:00 07:50 08:00 Temp 36.8 36.5 Pulse 87 83 82 Resp 18 14 B/P (MAP) 160/70 (100) 175/71 (105) Pulse Ox 94 96 97 O2 Delivery Room Air Room Air Room Air 05/02/21 11:25 Temp 36.3 Pulse 74 Resp 16 B/P (MAP) 177/75 (109) Pulse Ox 96 O2 Delivery Room Air 05/02/21 00:00 Intake Total 640 ml Balance 640 ml Weight (Pounds): 122 Weight (Ounces): 1.0 Weight (Calculated Kilograms): 55.838647 Constitutional: AAO x 3, well-developed, well-nourished Respiratory: No accessory muscle use, No respiratory distress; chest expansion is symmetric, chest is bilaterally symmetric, lungs clear to auscultation Cardiovascular: regular rate-rhythm; No JVD; S1 and S2 Gastrointestional: tender (epigastric), soft Extremities: no lower extremity edema bilateral Neurologic/Psychiatric: grossly intact (moves all extremities) Skin: other (bilat LE swelling with redness and warmth, L>R, improving since admission) Results/Procedures: Labs Laboratory Tests 05/01/21 16:04: Glucometer 83 05/01/21 20:21: Glucometer 55*L 05/01/21 20:49: Glucometer 85 05/01/21 21:31: Glucometer 145H 05/02/21 05:19: Glucometer 167H 05/02/21 08:00: Sodium Level 138, Potassium Level 4.0, Chloride Level 107, Carbon Dioxide Level 21, Anion Gap 10, Blood Urea Nitrogen 30H, Creatinine 1.11, Estimat Glomerular Filtration Rate 50, BUN/Creatinine Ratio 27, Glucose Level 218H, Calcium Level 8.4L, Magnesium Level 2.2 05/02/21 11:33: Glucometer 200H Laboratory Tests 05/01/21 05:07 05/02/21 08:00 A/P: Assessment: Chest pain of undetermined etiology, non-cardiac - Echo on 04/30/21: LVEF 55-60%, grade 1 moody dysfunction, mild to mod enlargement of LA, PASP 40-45 mmHg - MPI on 05/01/21: no ischemia or infarction, LVEF 74% LE cellulitis - management per Medical services PAD - arterial u/s 04/30/21: There is diminished arterial blood flow to both lower extremities. This is secondary to occlusion of the proximal superficial femoral artery on the right and hemodynamically significant stenoses of the superficial femoral artery on the left. - peripheral angio on 05/02/21: proximal occlusion of R sup fem artery with distal reconstitution via collaterals; very long severe (95-99 stenosis) of the L sup fem from the ostium to just above the popliteal; 3 vessel runoff on both sides Palpitations due to brief runs of PSVT and intermittent sinus tach, as documen maria luisa on ILR recordings of January and Feb 2020 H/o syncope, mostly postural. 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 LVEF 65%, LVEDP 15 mmHg (essentially unchanged compared to previous caths). - MPI on 05/01/21: no ischemia or infarction, LVEF 74% DM II, insulin-requiring, managed by her brick shader, Dr Nash - H/o diabetic nephropathy and CKD that is followed by Dr. Court Saha of Nephrology services Hypertension H/o postural hypotension likely d/t diabetic/autonomic neuropathy Hyperlipidemia, managed by Dr Huertas Chronic tobacco use Chronic pain, mostly back pain, treated with chronic narcotic analgesics and multiple back surgeries for bulging discs (cervical and lumbar spines) Psoriatic arthritis Hardness of hearing H/o MIHIR, but noncompliant with therapy Approx 50% bilat ICA stenosis on carotid u/s of 10/02/20 Intermittent non-compliance with f/u Plan: Results of peripheral angio described above. Bilat fem-pop appears to be the best treatment option I discussed her case with Dr Wren of the CV surg sv[facility] at [facility] and Dr Yi of the hospitalist svce at [facility] Leg cellulitis is improving and there does not appear to be critical limb ischemia. Continue therapy for cellulitis and pt is to see Dr Wren on 05/06/21 for eval for bilat fem-pop BP not well controlled - adjust antihypertensive regimen Continue ASA We have advised her quit smoking immediately and completely Clinical Quality Measures Smoking Cessation Counseling: Counseling-Symptomatic: 3-10 Minutes RICH FELIX MD FACP FACC CCDS May 02, 2021 15:47
[2021-05-02] MEDS ORDERED: DEXTROSE 50% 50 ML (IMS) SYR ONE (16:20)
[2021-05-02] MEDS ORDERED: DEXTROSE 50% 50 ML (IMS) SYR IV ONE (16:30)
--- NOTE | 2021-05-02 21:19 | OPERATIVE REPORT ---
DATE OF SERVICE: 05/02/2021 PERIPHERAL ANGIOGRAPHY REPORT INDICATION: The patient is a 61-year-old lady, who was hospitalized with leg cellulitis. Noninvasive evaluation of the arterial circulation of the leg showed severe superficial femoral arterial disease on both sides. Peripheral angiography was carried out today after having obtained an informed consent. DESCRIPTION OF PROCEDURE: She was brought to the cardiac catheterization laboratory in a fasting state. The right groin was prepared and draped in the usual sterile fashion. Lidocaine 1% was used for local anesthesia. Modified Seldinger technique was used to advance a 5-Pashto sheath in the right femoral artery. A 5-Pashto pigtail catheter was used for abdominal aortic angiography with the pigtail catheter placed at the level of L1. The pigtail catheter was then pulled down to just above the level of the aortoiliac bifurcation and bilateral leg artery angiography was performed with runoff down to the level of the ankles. At the end of the procedure, angiography of the right femoral artery was carried out through the sheath and manual pressure was used to achieve hemostasis. She tolerated the procedure well. ABDOMINAL AORTIC ANGIOGRAPHY: Abdominal aortic angiography did not indicate any significant abdominal aortic aneurysm or dissection or significant abdominal aortic stenosis. Mild to moderate distal abdominal atherosclerotic disease is seen. Renal arteries are identified and do not exhibit significant disease. Aortoiliac bifurcation does not exhibit significant stenosis. BILATERAL LEG ARTERY ANGIOGRAPHY: Bilateral leg artery angiography indicated intact iliac arteries on both sides and intact common femoral arteries on both sides. On the right side, the superficial femoral artery is occluded in its proximal portion and reconstitutes via collaterals in its distal portion. The right popliteal artery is intact and there appears to be 3-vessel runoff in the leg. On the left side, there is severe stenosis of the superficial femoral starting from its ostium to its very distal portion. This is 95% to 99% stenosis. The popliteal artery is intact and there appears to be a 3-vessel runoff. CONCLUSIONS: Severe bilateral superficial femoral arterial disease as described above. DISCUSSION AND RECOMMENDATIONS: The best treatment option appears to be bilateral femoro-popliteal surgery. We called Dr. Wren of the cardiovascular surgical services at [facility] and he has agreed to see the patient in surgical evaluation. We have advised the patient to quit smoking immediately and completely. Medication compliance has been advised. Aspirin is being continued. I discussed her case with Dr. Yi of the hospitalist service, who is currently taking care of her. Job ID: [id number] DocumentID: [id number] Dictated Date: 05/02/2021 15:59:11 Park Warden Date: 05/02/2021 21:18:19 Dictated By: RICH FELIX MD, MA, FACP, FACC,
[2021-05-03] VITALS: BP 178/75
[2021-05-03] MEDS: HYDROmorphone 2 MG/ML VIAL (DILAUDID) IVP PRN ×5 (00:08→08:37)
[2021-05-03 04:00] VITALS: BP 175/123
[2021-05-03] MEDS: DOXYCYCLINE 100 MG (VIBRAMYCIN) TABLET PO SCH (06:22)
[2021-05-03] MEDS: inSUlin ASPART (NovoLOG) 1 UNIT/0.01 ML (CHARGE PER UNIT) SC SCH (06:25)
[2021-05-03 08:00] VITALS: BP 157/94
[2021-05-03] MEDS: ENOXAPARIN 40 MG/0.4 ML (LOVENOX) SYR SC SCH (08:34)
[2021-05-03] MEDS: PANTOPRAZOLE 40 MG (PROTONIX) TAB PO SCH (08:35)
[2021-05-03] MEDS: NS IV 1000 ML 1,000 ML IV SCH (08:51)
[2021-05-03] MEDS ORDERED: lisINopril 20 MG (PRINIVIL) TABLET PO SCH (09:00)
[2021-05-03] MEDS ORDERED: ASPIRIN 81 MG CHEW (CHILDREN'S ASA) PO SCH (09:00)
[2021-05-03] MEDS ORDERED: meTOprolol SUCCINATE 100 MG (TOPROL XL) TAB PO SCH (09:00)
[2021-05-03] MEDS ORDERED: CEFDINIR 300 MG (OMNICEF) CAP PO SCH (09:00)
[2021-05-03] MEDS ORDERED: amLODIPine 10 MG (NORVASC) TAB PO SCH (09:00)
[2021-05-03] MEDS ORDERED: AMLO-251 PO (09:25)
[2021-05-03] MEDS ORDERED: LISI20TA26 PO (09:25)
[2021-05-03] MEDS ORDERED: MTP100TCR PO (09:25)
[2021-05-03] MEDS ORDERED: DOXY100C2 PO (09:25)
[2021-05-03] MEDS ORDERED: CEFD300C3 PO (09:25)
== END 2021-05-03 10:05 | disposition home or self-care (01) ==
LOC: EDUNIT# 18:04 → ER 18:06 → 4TH 04-30 01:04 → CSD 05-02 15:55
PROVIDERS: ADMIT Internal Medicine; ATTEND Internal Medicine
DX: I70.213 Atherosclerosis of native arteries of extremities with intermittent claudication, bilateral legs (principal); L03.116 Cellulitis of left lower limb; I34.0 Nonrheumatic mitral (valve) insufficiency; I12.9 Hypertensive chronic kidney disease with stage 1 through stage 4 chronic kidney disease, or unspecified chronic kidney disease; N18.30 Chronic kidney disease, stage 3 unspecified; J42 Unspecified chronic bronchitis; L40.50 Arthropathic psoriasis, unspecified; I82.402 Acute embolism and thrombosis of unspecified deep veins of left lower extremity; I25.10 Atherosclerotic heart disease of native coronary artery without angina pectoris; E78.5 Hyperlipidemia, unspecified; E78.00 Pure hypercholesterolemia, unspecified; K21.9 Gastro-esophageal reflux disease without esophagitis; E11.42 Type 2 diabetes mellitus with diabetic polyneuropathy; E11.36 Type 2 diabetes mellitus with diabetic cataract; H26.9 Unspecified cataract; F41.9 Anxiety disorder, unspecified; G89.29 Other chronic pain; F17.210 Nicotine dependence, cigarettes, uncomplicated; Z91.040 Latex allergy status; Z88.1 Allergy status to other antibiotic agents; Z95.5 Presence of coronary angioplasty implant and graft; Z79.82 Long term (current) use of aspirin; Z79.899 Other long term (current) drug therapy; Z79.4 Long term (current) use of insulin; Z79.891 Long term (current) use of opiate analgesic
CPT/HCPCS: 71045; 75625; 75716; 78452; 78580; 80048 ×3; 80053; 82947 ×4; 83690; 83735 ×3; 83874; 83880 ×2; 84484; 85025 ×3; 85379; 85610; 85652; 85730; 86141; 87081; 93005; 93017; 93041; 93306; 93925; 93970; 96374; 96375; 96376; 99285; A9502; A9540; C1894; G0378; 36415

== ENCOUNTER 2021-05-14 22:53 | Inpatient (IN) | payer MEDICARE ==
[~2021-05-14] VITALS: Ht 152.4 cm; Wt 56.0 kg
[~2021-05-14 22:53] MED LIST changes: +CEFD300C3 PO; +DOXY100C2 PO; +MIRT-68 PO; -MIRT15TA6 PO
[2021-05-14] MEDS ORDERED: NALOXONE 2 MG/2 ML (NARCAN) SYR IV ONE (23:00)
[2021-05-14] MEDS ORDERED: NS IV 1000 ML 1,000 ML IV SCH (23:00)
[2021-05-14 23:20] LABS: BASOPHILS # (AUTO) 0.1 10^3/uL (0.0-0.1); BASOPHILS % (AUTO) 1 % (0-10); EOSINOPHILS # (AUTO) 0.1 10^3/uL (0.0-0.3); EOSINOPHILS % (AUTO) 1 % (0-10); HEMATOCRIT 31 % (35-52); HEMOGLOBIN 10.4 g/dL (11.5-16.0); LYMPHOCYTES # (AUTO) 4.3 10^3/uL (1.0-4.0); LYMPHOCYTES % (AUTO) 37 % (12-44); MEAN CORPUSCULAR HEMOGLOBIN 28 pg (25-34); MEAN CORPUSCULAR HGB CONC 33 g/dL (32-36); MEAN CORPUSCULAR VOLUME 84 fL (80-99); MEAN PLATELET VOLUME 10.9 fL (9.0-12.2); MONOCYTES # (AUTO) 0.6 10^3/uL (0.0-1.0); MONOCYTES % (AUTO) 5 % (0-12); NEUTROPHILS # (AUTO) 6.3 10^3/uL (1.8-7.8); NEUTROPHILS % (AUTO) 55 % (42-75); PLATELET COUNT 301 10^3/uL (130-400); WHITE BLOOD COUNT 11.6 10^3/uL (4.3-11.0)
[2021-05-14 23:32] LABS: ALBUMIN 2.9 GM/DL (3.2-4.5); CHLORIDE 108 MMOL/L (98-107); POTASSIUM 4.1 MMOL/L (3.6-5.0); SODIUM 135 MMOL/L (135-145)
[2021-05-14 23:33] LABS: CALCIUM 7.8 MG/DL (8.5-10.1)
[2021-05-14 23:34] LABS: AMYLASE 39 U/L (25-125)
[2021-05-14 23:35] LABS: TOTAL PROTEIN 5.7 GM/DL (6.4-8.2)
[2021-05-14 23:36] LABS: BILIRUBIN,TOTAL 0.3 MG/DL (0.1-1.0); CARBON DIOXIDE 13 MMOL/L (21-32)
[2021-05-14 23:37] LABS: BILIRUBIN,URINE NEGATIVE (NEGATIVE); CLARITY,URINE CLEAR; COLOR,URINE YELLOW; GLUCOSE, URINE (UA) 3+ (NEGATIVE); KETONES,URINE NEGATIVE (NEGATIVE); LEUKOCYTE ESTERASE ,URINE NEGATIVE (NEGATIVE); NITRITE,URINE NEGATIVE (NEGATIVE); PROTEIN,URINE 2+ (NEGATIVE)
[2021-05-14 23:38] LABS: ALKALINE PHOSPHATASE 121 U/L (40-136); CREATININE SERUM 1.95 MG/DL (0.60-1.30); GFR ESTIMATED 26
[2021-05-14 23:40] LABS: BUN/CREATININE RATIO 29
[2021-05-14 23:41] LABS: ALANINE AMINOTRANSFERASE 36 U/L (0-55); SALICYLATE < 5.0 MG/DL (5.0-20.0)
[2021-05-14 23:42] LABS: MAGNESIUM 1.5 MG/DL (1.6-2.4)
[2021-05-14 23:43] LABS: CREATINE KINASE 25 U/L (29-168); LIPASE 38 U/L (8-78)
[2021-05-14 23:49] LABS: CREATINE KINASE MB 0.9 NG/ML (<6.6)
[2021-05-15 00:03] LABS: ACETAMINOPHEN < 10 UG/ML (10-30); GLUCOSE 430 MG/DL (70-105)
[2021-05-15 00:25] LABS: AMORPHOUS SEDIMENT,UR RARE AMOR URATES /LPF; BACTERIA,URINE NEGATIVE /HPF; RBC,URINE 0-2 /HPF; WBC,URINE 0-2 /HPF
[2021-05-15 00:28] LABS: AMPHETAMINE SCREEN, URINE NEGATIVE (NEGATIVE); BARBITURATE SCREEN URINE NEGATIVE (NEGATIVE); BENZODIAZEPINES SCREEN URINE NEGATIVE (NEGATIVE); CANNABINOID SCREEN, URINE NEGATIVE (NEGATIVE); COCAINE SCREEN URINE NEGATIVE (NEGATIVE); METHADONE STAT NEGATIVE (NEGATIVE); METHAMPHETAMINE SCREEN URINE S NEGATIVE (NEGATIVE); OPIATE SCREEN URINE NEGATIVE (NEGATIVE); OXYCODONE STAT NEGATIVE (NEGATIVE); PROPOXYPHENE STAT NEGATIVE (NEGATIVE); TRICYCLIC ANTIDEPRESSANTS SCRE NEGATIVE (NEGATIVE)
[2021-05-15 00:30] LABS: ABG BASE EXCESS -12.9 MMOL/L (-2.5-2.5); ABG OXYGEN SATURATION 100 % (94-100); ABG PCO2 30 MMHG (35-45); ABG PO2 274 MMHG (79-93); ABG TCO2 14.2 MMOL/L (21.0-31.0)
[2021-05-15] MEDS ORDERED: NS IV 1000 ML 1,000 ML IV SCH (00:30)
[2021-05-15] MEDS ORDERED: SODIUM BICARB 8.4% 50 MEQ/50 ML VIAL IV ONE (00:30)
[2021-05-15 00:31] LABS: ABG PH 7.25 (7.37-7.43); ALLENS TEST POS; INSPIRED O2 10L; PATIENT TEMP 35.4; VENTILATOR NO
[2021-05-15] MEDS ORDERED: inSUlin (REGULAR) HUMAN 1 UNIT/0.01 ML (CHARGE PER UNIT) SC ONE (01:00)
--- NOTE | 2021-05-15 01:35 | ED General ---
General Chief Complaint: Unresponsive Stated Complaint: DKA Nursing Triage Note: Pt arrival to ER via [facility] with complaint of Hyperglycemia, Altered LOC, and Hypotension. EMS states that they were called for a subject crawling around on floor. Pt is found covered in feces. EMS found patient to be hypotensive, BS of 485, and Confused. Pt arrival to ER with port access and 200 ml on NS. Nursing Sepsis Screen: No Definite Risk Source of Information: EMS, Old Records Exam Limitations: Other (PT LIMITED HISTORIAN) History of Present Illness Date Seen by Provider: May 14, 2021 Time Seen by Provider: 22:50 Initial Comments PT ARRIVES VIA EMS FROM HOME PT WAS FOUND "UNRESPONSIVE" ON THE FLOOR BY UNKNOWN PERSON. EMS FOUND PT MINIMALLY RESPONSIVE BUT "CRAWLING" AROUND ON THE FLOOR AND WITH ALTERED LEVEL OF CONSCIOUSNESS NO EVIDENCE OF TRAUMA ACCUCHECK 485 BY EMS INITIAL BP 44/25, HR 67, O2 SAT 97% ON ROOM AIR EMS STARTED IV FLUIDS AND BP UP TO 85/34 WAS REPORTED TO EMS THAT PT TOOK "ALOT OF NEURONTIN" TODAY--PT LATER CLAIMS SHE TOOK 4, "BUT ONLY SUPPOSED TO TAKE 3" PT WITH LONG HISTORY OF SEVERE NON-COMPLIANCE IN ALL ASPECTS OF CARE, AND A MULTITUDE OF VISITS FOR UNCONTROLLED DIABETES AND DKA--VERY EASILY MANAGED WITH INSULIN IN HOSPITAL PT LATER ADMITS THAT SHE HAS NOT BEEN TAKING HER INSULIN--GIVES NO REASON--STATES "JUST HAVEN'T" PT ALSO WITH MULTITUDE OF VISITS FOR VARIOUS PAIN COMPLAINTS, WITH LONG HISTORY OF NARCOTIC ABUSE PT IS WEARING UNDERWEAR AND T-SHIRT, AND IS COVERED IN URINE AND FECES. ON ARRIVAL, PT IS OBTUNDED AND SNORING--ATTEMPTED TO PASS NASAL TRUMPET, AND PT IMMEDIATELY WAKES UP, FIGHTING THE NASAL TRUMPET, AND IS TALKING PT WANTING PHENERGAN AND BENADRYL LITERALLY SOON SHE IS TALKING (THIS IS A CONSTANT AND FREQUENT REQUEST FOR PT ON ESSENTIALLY EVERY VISIT--STATES "I CAN'T TAKE ANYTHING ELSE FOR NAUSEA" ) HAD NO COMPLAINED ON NAUSEA INITIALLY LAST ADMIT 04/30-05/03/21 FOR LEG CELLULITIS, PAD, CHEST PAIN PCP: DR. CALABRESE Allergies and Home Medications Allergies Coded Allergies: ketorolac (Verified Allergy, Severe, ANAPHYLAXIS, PT TAKES ASA AT HOME, 03/06/19) scopolamine (Verified Allergy, Mild, Rash, 03/21/19) exenatide (Verified Allergy, Unknown, NAUSEA, 03/06/19) NON STOP VOMITING latex (Verified Allergy, Unknown, RASH, 03/06/19) metoclopramide (Verified Allergy, Unknown, RESTLESS LEGS, 03/06/19) erythromycin base (Verified Adverse Reaction, Unknown, 03/21/19) Home Medications Amlodipine Besylate 10 Mg Tablet, 10 MG PO DAILY Prescribed by: JUAN DAVID BRADSHAW on 05/03/21924 Aspirin 81 Mg Tablet.dr, 81 MG PO DAILY, (Reported) Atorvastatin Calcium 20 Mg Tablet, 20 MG PO HS, (Reported) Benzonatate 100 Mg Capsule, 100 MG PO TID PRN for COUGH, (Reported) Cefdinir 300 Mg Capsule, 300 MG PO BID Prescribed by: JUAN DAVID BRADSHAW on 05/03/21924 Doxycycline Hyclate 100 Mg Capsule, 100 MG PO BID FILLED 04-23-2021 #14/7 DAY SUPPLY Prescribed by: JUAN DAVID BRADSHAW on 05/03/21924 Gabapentin 800 Mg Tablet, 1,600 MG PO HS, (Reported) TAKES 2 (800MG) TABLETS Gabapentin 800 Mg Tablet, 800 MG PO DAILY, (Reported) Insulin Aspart 300 Units/3 Ml Solution, 5 UNITS SQ AC, (Reported) LAST FILLED 09-20-2020 #10 PENS Insulin Determir 1,000 Units/10 Ml Soln, 15 UNITS SQ DAILY, (Reported) Lisinopril 20 Mg Tablet, 20 MG PO DAILY@0900 Prescribed by: JUAN DAVID BRADSHAW on 05/03/21924 Metoprolol Succinate 100 Mg Tab.er.24h, 100 MG PO DAILY Prescribed by: JUAN DAVID BRADSHAW on 05/03/21924 Oxycodone HCl 15 Mg Tablet, 15 MG PO QID, (Reported) Pantoprazole Sodium 40 Mg Tablet.dr, 40 MG PO BIDAC, (Reported) Promethazine HCl 25 Mg Tablet, 25 MG PO TID PRN for NAUSEA/VOMITING, (Reported) Patient Home Medication List Home Medication List Reviewed: Yes Review of Systems Review of Systems Constitutional: see HPI, malaise, weakness Respiratory: No cough, No short of breath Gastrointestinal: No abdominal pain; nausea Psychiatric/Neurological: See HPI Past Yzsxxdr-Fveyqa-Azkavd Hx Past Med/Social Hx: Reviewed and Corrections made Patient Social History Alcohol Use: Denies Use Number of Drinks Today: Alcohol Beverage of Choice: Wine Drug of Choice: NARCOTIC ABUSE Smoking Status: Current Everyday Smoker Type Used: Cigarettes 2nd Hand Smoke Exposure: No Recent Infectious Disease Expo: No Recent Hopitalizations: Yes Immunizations Up To Date Tetanus Booster (TDap): Unknown PED Vaccines UTD: No Date of Pneumonia Vaccine: Nov 06, 2019 Date of Influenza Vaccine: Nov 22, 2019 Seasonal Allergies Seasonal Allergies: Yes Past Medical History Surgeries: Yes (EGD and colonoscopy) Cardiac, Coronary Stent, Ear Surgery, Gallbladder, Orthopedic, Renal Respiratory: Yes Chronic Bronchitis, Sleep Apnea Currently Using CPAP: No Currently Using BIPAP: No Cardiac: Yes (DVT'S IN ARMS; CARDIAC STENT X 1; CAROTID DISEASE;LINQ DEVICE;SEVERE PAD) Chronic Edema/Swelling, Coronary Artery Disease, Deep Vein Thrombosis, High Cholesterol, Hypertension, Palpitations, Peripheral Vascular Neurological: Yes (NEUROPATHY IN HANDS AND FEET) Headaches /Migraines, Neuropathy 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 Disorders: No 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 Sexually Transmitted Disease: No HIV/AIDS: No Genitourinary: Yes Bladder Infection, Kidney Stones, Renal Failure Gastrointestinal: Yes Gastroesophageal Reflux Musculoskeletal: Yes (CHRONIC GENERALIZED PAIN;CHRONIC BILAT SHOULDER PAIN;CHRONIC NECK PAIN ) Degenerate Disk Disease, Fibromyalgia, Chronic Back Pain Endocrine: Yes (NON-COMPLAINT;MULTIPLE EPISODES OF DKA-EASILY CONTROLLED ON INSULIN IN HOSP) Diabetes, Insulin dep HEENT: Yes (GLASSES; S/P BMT'S;BILAT CATARACT SURGERY 10/2020) Cataract, Chronic Ear Infection Loss of Vision: Bilateral Hearing Impairment: Hard of Hearing Cancer: No Psychosocial: Yes Anxiety Integumentary: Yes Psoriasis Blood Disorders: No Adverse Reaction/Blood Tranf: No Family Medical History Cancer of mouth 19 FATHER ( of esophogeal cancer.) Cardiovascular disease 19 MOTHER G8 BROTHER Completed stroke 19 FATHER G8 BROTHER Diabetes mellitus G8 BROTHER FH: lung cancer 19 MOTHER Hypertension 19 FATHER Kidney disease 19 FATHER Myocardial infarction 19 MOTHER G8 BROTHER Respiratory disorder No Family History of: AIDS Cancer, Diabetes, Hypertension SOCIAL HISTORY: -ETOH--RARELY USES -DRUGS--Rx NARCOTIC ABUSE -SMOKES 1 PPD PSH: -LINQ DEVICE PLACED 11/09/19 FOR REPORTED PALPITATIONS X 6 MONTHS, SINCE PERCOCET WAS DC'D -MULTIPLE CARDIAC CATHS--STENT X 1 TO LAD 07/13/15. LAST CATH 01/18/19--NO INTERVENTION -LUMBAR SPINE FUSION X 3--12/2002, 04/2007, AND 05/2007 -LUMBAR DISCECTOMY 10/2000--? LAMINECTOMY? -CERVICAL SPINE FUSION 11/2006 -CHOLECYSTECTOMY 1984 -BMT'S -LITHOTRIPSY AND RIGHT URETERAL STENT -EGD'S WITH ESOPHAGEAL DILATIONS -COLONOSCOPIES, LAST ONE 03/08/19 -PORT RIGHT CHEST -LEFT SHOULDER ROTATOR CUFF REPAIR 05/01/20--DR. PALACIOS -CONTINUOUS GLUCOSE MONITOR PRESENT 06/25/20--LLQ OF ABDOMEN--NOT PRESENT 10/2020 -BILATERAL CATARACT SURGERY 10/2020 -PERIPHERAL ANGIOGRAM 05/02/[address] FELIX: SEVERE BILATERAL SUPERFICIAL FEMORAL ARTERY DISEASE AND RECOMMENDED BILATERAL FEMORAL-POPLITEAL SURGERY--REFERRED TO DR. SAWYER AT [facility] LONG HISTORY OF EXTREME NON-COMPLIANCE IN ALL ASPECTS OF CARE Physical Exam Vital Signs Vital Signs - First Documented 05/14/21 22:53 Temp 35.4 Pulse 67 Resp 16 B/P (MAP) 71/51 (58) Pulse Ox 100 O2 Delivery Room Air Capillary Refill : Less Than 3 Seconds Height, Weight, BMI Height: 5'1.00" Weight: 122lbs. 1.0oz. 55.650300li; 23.00 BMI Method:Estimated General Appearance: Thin, Other (ON ARRIVAL, PT IS OBTUNDED AND SNORING. ON ATTEMPT TO PASS NASAL TRUMPET--PT IMMEDIATELY AWAKE, FIGHTING NASAL TRUMPET, TALKING AND WANTING PHENERGAN + BENADRYL. DIRTY, UNKEMPT. COVERED IN URINE AND FECES; WEARING ONLY T-SHIRT AND UNDERWEAR) HEENT: Other (POOR DENTITION; PUPILS DILATED/ EQUAL) Respiratory: Normal Breath Sounds, No Accessory Muscle Use, No Respiratory Distress Cardiovascular: Regular Rate, Rhythm, No Murmur Gastrointestinal: Non Tender, Soft Neurologic/Psychiatric: No Motor/Sensory Deficits, Other (MENTATION ABOVE. PT IS AT BASELINE SOON SHE "WAKES UP" ) Skin: Normal Color, Warm/Dry, Other (COVERED IN URINE AND FECES. ) Focused Exam Lactate Level 05/14/21 23:11: Lactic Acid Level 3.01*H Lactic Acid Level Laboratory Tests Test 05/14/21 23:11 Lactic Acid Level 3.01 MMOL/L (0.50-2.00) *H Progress/Results/Core Measures Suspected Sepsis Recent Fever Within 48 Hours: No Infection Criteria Present: None New/Unexplained Altered Menta: Yes Sepsis Screen: No Definite Risk SIRS Temperature: Pulse: 67 Respiratory Rate: 16 Laboratory Tests 05/14/21 23:11: White Blood Count 11.6H Blood Pressure 71 /51 Mean: 58 05/14/21 23:11: Lactic Acid Level 3.01*H Laboratory Tests 05/14/21 23:11: Creatinine 1.95H, Platelet Count 301, Total Bilirubin 0.3 Results/Orders Lab Results Laboratory Tests Test 05/14/21 23:03 05/14/21 23:11 05/14/21 23:29 05/14/21 23:30 Range/Units Glucometer 417 *H 70-110 MG/DL White Blood Count 11.6 H 4.3-11.0 10^3/uL Red Blood Count 3.70 L 3.80-5.11 10^6/uL Hemoglobin 10.4 L 11.5-16.0 g/dL Hematocrit 31 L 35-52 % Mean Corpuscular Volume 84 80-99 fL Mean Corpuscular Hemoglobin 28 25-34 pg Mean Corpuscular Hemoglobin Concent 33 32-36 g/dL Red Cell Distribution Width 13.8 10.0-14.5 % Platelet Count 301 130-400 10^3/uL Mean Platelet Volume 10.9 9.0-12.2 fL Immature Granulocyte % (Auto) 1 % Neutrophils (%) (Auto) 55 42-75 % Lymphocytes (%) (Auto) 37 12-44 % Monocytes (%) (Auto) 5 0-12 % Eosinophils (%) (Auto) 1 0-10 % Basophils (%) (Auto) 1 0-10 % Neutrophils # (Auto) 6.3 1.8-7.8 10^3/uL Lymphocytes # (Auto) 4.3 H 1.0-4.0 10^3/uL Monocytes # (Auto) 0.6 0.0-1.0 10^3/uL Eosinophils # (Auto) 0.1 0.0-0.3 10^3/uL Basophils # (Auto) 0.1 0.0-0.1 10^3/uL Immature Granulocyte # (Auto) 0.1 0.0-0.1 10^3/uL Sodium Level 135 135-145 MMOL/L Potassium Level 4.1 3.6-5.0 MMOL/L Chloride Level 108 H 98-107 MMOL/L Carbon Dioxide Level 13 L 21-32 MMOL/L Anion Gap 14 5-14 MMOL/L Blood Urea Nitrogen 57 H 7-18 MG/DL Creatinine 1.95 H 0.60-1.30 MG/DL Estimat Glomerular Filtration Rate 26 BUN/Creatinine Ratio 29 Glucose Level 430 *H 70-105 MG/DL Lactic Acid Level 3.01 *H 0.50-2.00 MMOL/L Calcium Level 7.8 L 8.5-10.1 MG/DL Corrected Calcium 8.7 8.5-10.1 MG/DL Magnesium Level 1.5 L 1.6-2.4 MG/DL Total Bilirubin 0.3 0.1-1.0 MG/DL Aspartate Amino Transf (AST/SGOT) 15 5-34 U/L Alanine Aminotransferase (ALT/SGPT) 36 0-55 U/L Alkaline Phosphatase 121 40-136 U/L Total Creatine Kinase 25 L 29-168 U/L Creatine Kinase MB 0.9 <6.6 NG/ML Myoglobin 66.6 10.0-92.0 NG/ML Troponin I < 0.028 <0.028 NG/ML Total Protein 5.7 L 6.4-8.2 GM/DL Albumin 2.9 L 3.2-4.5 GM/DL Amylase Level 39 25-125 U/L Lipase 38 8-78 U/L Salicylates Level < 5.0 L 5.0-20.0 MG/DL Acetaminophen Level < 10 L 10-30 UG/ML Serum Alcohol < 10 <10 MG/DL Urine Color YELLOW Urine Clarity CLEAR Urine pH 6.0 5-9 Urine Specific [place] 1.020 1.016-1.022 Urine Protein 2+ H NEGATIVE Urine Glucose (UA) 3+ H NEGATIVE Urine Ketones NEGATIVE NEGATIVE Urine Nitrite NEGATIVE NEGATIVE Urine Bilirubin NEGATIVE NEGATIVE Urine Urobilinogen 0.2 < = 1.0 MG/DL Urine Leukocyte Esterase NEGATIVE NEGATIVE Urine RBC (Auto) NEGATIVE NEGATIVE Urine RBC 0-2 /HPF Urine WBC 0-2 /HPF Urine Crystals PRESENT H /LPF Urine Amorphous Sediment RARE ANITHA URATES H /LPF Urine Bacteria NEGATIVE /HPF Urine Casts NONE /LPF Urine Hyaline Casts 2-5 H /LPF Urine Mucus NEGATIVE /LPF Urine Culture Indicated NO Urine Opiates Screen NEGATIVE NEGATIVE Urine Oxycodone Screen NEGATIVE NEGATIVE Urine Methadone Screen NEGATIVE NEGATIVE Urine Propoxyphene Screen NEGATIVE NEGATIVE Urine Barbiturates Screen NEGATIVE NEGATIVE Ur Tricyclic Antidepressants Screen NEGATIVE NEGATIVE Urine Phencyclidine Screen NEGATIVE NEGATIVE Urine Amphetamines Screen NEGATIVE NEGATIVE Urine Methamphetamines Screen NEGATIVE NEGATIVE Urine Benzodiazepines Screen NEGATIVE NEGATIVE Urine Cocaine Screen NEGATIVE NEGATIVE Urine Cannabinoids Screen NEGATIVE NEGATIVE Blood Gas Puncture Site L WRIST Blood Gas Patient Temperature 35.4 Arterial Blood pH 7.25 *L 7.37-7.43 Arterial Blood Partial Pressure CO2 30 L 35-45 MMHG Arterial Blood Partial Pressure O2 274 H 79-93 MMHG Arterial Blood HCO3 13 *L 23-27 MMOL/L Arterial Blood Total CO2 14.2 L 21.0-31.0 MMOL/L Arterial Blood Oxygen Saturation 100 94-100 % Arterial Blood Base Excess -12.9 L -2.5-2.5 MMOL/L Antonio Test POS Blood Gas Ventilator Setting NO Blood Gas Inspired Oxygen 10L My Orders Orders - PURA PIÑA DO Ed Iv/Invasive Line Start (05/14/21 22:56) Ekg Tracing (05/14/21 22:56) Catheter(Urinary) Insert & Ass 03,15 (05/14/21 22:56) Monitor-Rhythm Ecg Trace Only (05/14/21 22:56) Chest 1 View, Ap/Pa Only (05/14/21 22:56) Acetaminophen (05/14/21 22:56) Alcohol (05/14/21 22:56) Amylase (05/14/21 22:56) Arterial Blood Gas (05/14/21 22:56) Cbc With Automated Diff (05/14/21 22:56) Comprehensive Metabolic Panel (05/14/21 22:56) Creatine Kinase (05/14/21 22:56) Creatine Kinase Mb (05/14/21 22:56) Lactic Acid Analyzer (05/14/21 22:56) Lipase (05/14/21 22:56) Magnesium (05/14/21 22:56) Salicylate (05/14/21 22:56) Ua Culture If Indicated (05/14/21 22:56) Myoglobin Serum (05/14/21 22:56) Troponin I (05/14/21 22:56) Ed Iv/Invasive Line Start (6/23/21 22:56) Ns Iv 1000 Ml (Sodium Chloride 0.9%) (05/14/21 23:00) Naloxone Injection (Narcan Injection) (05/14/21 23:00) Drug Screen Stat (Urine) (05/14/21 23:13) Sodium Bicarbonate 8.4% Vial (Sodium Bic (05/15/21 00:30) Ed Iv/Invasive Line Start (05/15/21 00:27) Ns Iv 1000 Ml (Sodium Chloride 0.9%) (05/15/21 00:30) Insulin (Regular) Human (Novolin R (Per (05/15/21 01:00) Medications Given in ED Current Medications Medications Dose Ordered Sig/Jackie Route Start Time Stop Time Status Last Admin Dose Admin Naloxone HCl 2 mg ONCE ONCE IV 05/14/21 23:00 05/14/21 23:01 DC 05/14/21 23:04 2 MG Sodium Bicarbonate 50 meq ONCE ONCE IV 05/15/21 00:30 05/15/21 00:31 DC 05/15/21 00:47 50 MEQ Vital Signs/I&O 05/14/21 22:53 Temp 35.4 Pulse 67 Resp 16 B/P (MAP) 71/51 (58) Pulse Ox 100 O2 Delivery Room Air 05/15/21 00:00 Intake Total 200 ml Balance 200 ml Capillary Refill : Less Than 3 Seconds Blood Pressure Mean: 58 Point of Care Testing Finger Stick Blood Glucose: 417 Blood Glucose Action Taken: DOCTOR NOTIFIED Progress Note : Progress Note BP REMAINED > 100 SYSTOLIC WITH IV FLUIDS NO DETERIORATION IN PT'S CONDITION DURING ER STAY ECG Initial ECG Impression Date: May 14, 2021 Initial ECG Impression Time: 23:09 Initial ECG Rate: 64 Initial ECG Rhythm: Normal Sinus Diagnostic Imaging Comments CXR--NO ACUTE PROCESS, PENDING RADIOLOGIST REVIEW Reviewed: Reviewed by Me Departure Communication (Admissions) 0054--SPOKE WITH DR. MELVIN, HOSPITALIST, ACCEPTS PT FOR ADMIT 0055--CALLED E-ICU. PHYSICIAN CURRENTLY UNAVAILABLE 0110--CALLED E-ICU, REPORT GIVEN TO PHYSICIAN, NO ADDITIONAL RECOMMENDATIONS AT THIS TIME. Impression Primary Impression: DKA Additional Impressions: Non-compliance Hypomagnesemia Dehydration with Acute Renal Failure Hypocalcemia Disposition: ADMITTED INPATIENT Condition: Improved Admissions Decision to Admit Reason: Admit from ER (General) Decision to Admit/Date: May 15, 2021 Time/Decision to Admit Time: 00:50 Departure-Patient Inst. Referrals: CINDY CALABRESE DO (PCP/Family) Primary Care Physician PURA PIÑA DO May 15, 2021 01:35
--- NOTE | 2021-05-15 01:39 | Pulmonary Consultation ---
History of Present Illness History of Present Illness Date Seen by Provider: May 08, 2021 Time Seen by Provider: 01:39 Date of Admission Adm w DKA, noncompliant frequent flyer. Recd 3 L IVF. VSS Placed on SSI as pt v. insulin sensitive. D/W ER MD: daryn gallego with K 4.1. History of Present Illness See freetext note Allergies and Home Medications Allergies Coded Allergies: ketorolac (Verified Allergy, Severe, ANAPHYLAXIS, PT TAKES ASA AT HOME, 03/06/19) scopolamine (Verified Allergy, Mild, Rash, 03/21/19) exenatide (Verified Allergy, Unknown, NAUSEA, 03/06/19) NON STOP VOMITING latex (Verified Allergy, Unknown, RASH, 03/06/19) metoclopramide (Verified Allergy, Unknown, RESTLESS LEGS, 03/06/19) erythromycin base (Verified Adverse Reaction, Unknown, 03/21/19) Home Medications Amlodipine Besylate 10 Mg Tablet, 10 MG PO DAILY, (Reported) Aspirin 81 Mg Tablet.dr, 81 MG PO DAILY, (Reported) Atorvastatin Calcium 20 Mg Tablet, 20 MG PO HS, (Reported) Gabapentin 800 Mg Tablet, 1,600 MG PO HS, (Reported) TAKES 2 (800MG) TABLETS Gabapentin 800 Mg Tablet, 800 MG PO DAILY, (Reported) Insulin Aspart 300 Units/3 Ml Solution, 5 UNITS SQ AC, (Reported) LAST FILLED 09-20-2020 #10 PENS Insulin Determir 1,000 Units/10 Ml Soln, 15 UNITS SQ DAILY, (Reported) Metoprolol Succinate 100 Mg Tab.er.24h, 100 MG PO DAILY, (Reported) Oxycodone HCl 15 Mg Tablet, 15 MG PO QID, (Reported) Pantoprazole Sodium 40 Mg Tablet.dr, 40 MG PO BIDAC, (Reported) Promethazine HCl 25 Mg Tablet, 25 MG PO TID PRN for NAUSEA/VOMITING, (Reported) Past Medical/Social/Family Hx Patient Social History Marrital Status: single Employed/Student: employed Tobacco Use?: No Smokeless Tobacco Frequency: Never a User Use of E-Cig and/or Vaping dev: Unable to obtain E-Cig or Vaping type used: Other E-Cig and/or Vaping Freq: Unknown if Ever Used Substance use?: No Alcohol Use?: No Pt stated abuse/neglect: No Immunizations Up To Date Second COVID19 Vaccination Sharif: Tetanus Booster (TDap): Unknown Hepatitis A: No Hepatitis B: No TB Skin Test: None Date of Pneumonia Vaccine: Nov 06, 2019 Current Status status: Unable to obtain status: Unable to obtain Advance Directives: Unable to obtain Advance Directive Location: Primary Language: Kinyarwanda Preferred Spoken Language: Kinyarwanda Past Medical History Past Medical History 1. Diabetes Mellitus Type 1 with poor control 2. Hypertension 3.Hyperlipidemia 4.Chronic Kidney Disease 5. Irritable Bowel Disorder 6. Fibromyalgia 7.Psoriasis 8.chronic neck and back pain- on chronic narcotics from pain management 9. hx of blood clots in the upper extremities 10. Anxiety 11. Tobaccoism 12. 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 GERD 14. Diverticulosis 15. Seizure Disorder PSH: 1.Renal stent 2.cholecystectomy 3.Laminectomy 5.ear tubes as a child Family Medical History Family Hx: SOCIAL HISTORY: -ETOH--RARELY USES -DRUGS--Rx NARCOTIC ABUSE -SMOKES 1 PPD PSH: -LINQ DEVICE PLACED 11/09/19 FOR REPORTED PALPITATIONS X 6 MONTHS, SINCE PERCOCET WAS DC'D -MULTIPLE CARDIAC CATHS--STENT X 1 TO LAD 07/13/15. LAST CATH 01/18/19--NO INTERVENTION -LUMBAR SPINE FUSION X 3--12/2002, 04/2007, AND 05/2007 -LUMBAR DISCECTOMY 10/2000--? LAMINECTOMY? -CERVICAL SPINE FUSION 11/2006 -CHOLECYSTECTOMY 1983 -BMT'S -LITHOTRIPSY AND RIGHT URETERAL STENT -EGD'S WITH ESOPHAGEAL DILATIONS -COLONOSCOPIES, LAST ONE 03/08/19 -PORT RIGHT CHEST -LEFT SHOULDER ROTATOR CUFF REPAIR 05/01/20--DR. PALACIOS -CONTINUOUS GLUCOSE MONITOR PRESENT 06/25/20--LLQ OF ABDOMEN--NOT PRESENT 10/2020 -BILATERAL CATARACT SURGERY 10/2020 Review of Systems Constitutional: no symptoms reported EENTM: see HPI Respiratory: no symptoms reported Cardiovascular: no symptoms reported Gastrointestinal: no symptoms reported Genitourinary: no symptoms reported Musculoskeletal: no symptoms reported Skin: no symptoms reported Psychiatric/Neurological: No Symptoms Reported Other See freetext note All Other Systems Reviewed Negative Unless Noted: Yes Sepsis Event Evaluation Sepsis Stage: Ruled Out Possible Source: Other Height, Weight, BMI Height: 5'1.00" Weight: 122lbs. 1.0oz. 55.722093sc; 23.00 BMI Method:Estimated Bedside Monitoring CVP Measures: 8-12 ScvO2 measures: Greater than 70% Bedside Ultrasound Performed: No Passive Leg Raise/Fluid Bolus: Fluid Responsive Exam Exam Patient acknowledged, consented, and participated in this virtual visit which was conducted using real time audio/video Vital Signs Date Time Temp Pulse Resp B/P (MAP) Pulse Ox O2 Delivery O2 Flow Rate FiO2 05/14/21 22:53 35.4 67 16 71/51 (58) 100 Room Air I & O 05/15/21 06:59 Intake Total 200 ml Balance 200 ml Height & Weight Height: 5'1.00" Weight: 122lbs. 1.0oz. 55.593055ht; 23.00 BMI Method:Estimated General Appearance: No Apparent Distress Capillary Refill: Less Than 3 Seconds Peripheral Pulses: 2+ Dorsalis Pedis (R), 2+ Left Dors-Pedis (L) Other comments See freetext note Results Lab Laboratory Tests 05/14/21 23:11 See freetext note Meds See freetext note Radiology See freetext note Procedures See freetext note Assessment/Plan Assessment/Plan See freetext note Critical Care: Critically Ill Patient Time spent with patient (mins): 15 Advance Care discuss with: patient Time spent on discussion(mins): 15 Diagnosis/Problems Problems/Diagonsis (1) Ketosis-prone diabetes mellitus Status: Acute RADHA CONNER MD May 15, 2021 01:39
[2021-05-15] MEDS ORDERED: 1/2 NS W/KCL 20 MEQ/L 1,000 ML IV ONE (02:05)
[2021-05-15] MEDS: 1/2 NS W/KCL 20 MEQ/L 1,000 ML IV SCH ×3 (02:34→16:51)
[2021-05-15] MEDS: MAGNESIUM 1 GM/D5W 100 ML IVPB IV SCH ×2 (02:38→03:31)
[2021-05-15 05:19] LABS: BASOPHILS # (AUTO) 0.1 10^3/uL (0.0-0.1); BASOPHILS % (AUTO) 1 % (0-10); EOSINOPHILS # (AUTO) 0.1 10^3/uL (0.0-0.3); EOSINOPHILS % (AUTO) 1 % (0-10); HEMATOCRIT 30 % (35-52); HEMOGLOBIN 10.1 g/dL (11.5-16.0); LYMPHOCYTES % (AUTO) 28 % (12-44); MEAN CORPUSCULAR HEMOGLOBIN 28 pg (25-34); MEAN CORPUSCULAR HGB CONC 33 g/dL (32-36); MEAN CORPUSCULAR VOLUME 84 fL (80-99); MEAN PLATELET VOLUME 11.1 fL (9.0-12.2); MONOCYTES # (AUTO) 0.6 10^3/uL (0.0-1.0); MONOCYTES % (AUTO) 4 % (0-12); NEUTROPHILS # (AUTO) 9.3 10^3/uL (1.8-7.8); NEUTROPHILS % (AUTO) 66 % (42-75); PLATELET COUNT 264 10^3/uL (130-400); WHITE BLOOD COUNT 14.2 10^3/uL (4.3-11.0)
[2021-05-15 05:40] LABS: ALBUMIN 2.8 GM/DL (3.2-4.5); POTASSIUM 3.8 MMOL/L (3.6-5.0)
[2021-05-15 05:41] LABS: CALCIUM 7.7 MG/DL (8.5-10.1)
[2021-05-15 05:42] LABS: TOTAL PROTEIN 5.3 GM/DL (6.4-8.2)
[2021-05-15 05:44] LABS: BILIRUBIN,TOTAL 0.2 MG/DL (0.1-1.0)
[2021-05-15 05:46] LABS: CREATININE SERUM 1.45 MG/DL (0.60-1.30)
[2021-05-15 05:49] LABS: MAGNESIUM 2.4 MG/DL (1.6-2.4)
[2021-05-15] MEDS: inSUlin ASPART (NovoLOG) 1 UNIT/0.01 ML (CHARGE PER UNIT) SC SCH ×4 (06:01→21:56)
[2021-05-15 06:33] LABS: EOSINOPHILS % (MANUAL) 1 %; LYMPHOCYTES % (MANUAL) 29 %; MONOCYTES % (MANUAL) 2 %; NEUTROPHILS % (MANUAL) 68 %; POIKILOCYTOSIS SLIGHT
--- NOTE | 2021-05-15 08:28 | Diagnostic Imaging Report ---
CHEST 1 VIEW, AP/PA ONLY Indication: Altered mental status Comparison: 04/29/2021 Findings: Stable right IJ Port-A-Cath. Summation shadow of patient's 1st ribs and sternoclavicular joints are present in the lung apices. No consolidations have developed in the visualized lungs. Posterior lower lobes are poorly evaluated by portable radiography. No pleural effusion or pneumothorax. Normal cardiomediastinal silhouette. Impression: 1. No acute cardiopulmonary process by portable radiography. Dictated by: Dictated on workstation # [id number]
--- NOTE | 2021-05-15 13:31 | Tele-ICU Progress Note ---
Subjective Date Seen by a Provider: May 15, 2021 Time Seen by a Provider: 09:28 Sepsis Event Evaluation Height, Weight, BMI Height: 5'1.00" Weight: 122lbs. 1.0oz. 55.879584ww; 23.68 BMI Method:Estimated Focused Exam Lactate Level 05/14/21 23:11: Lactic Acid Level 3.01*H 05/15/21 01:30: Lactic Acid Level 1.39 Exam Exam Patient acknowledged, consented, and participated in this virtual visit which was conducted using real time audio/video Vital Signs Date Time Temp Pulse Resp B/P (MAP) Pulse Ox O2 Delivery O2 Flow Rate FiO2 05/15/21 09:00 65 19 108/59 (75) 100 Room Air 05/15/21 08:20 100 Room Air 05/15/21 08:06 35.9 05/15/21 08:00 66 18 105/58 (74) 94 Room Air 05/15/21 07:00 71 05/15/21 07:00 71 31 111/54 (73) 98 Room Air 05/15/21 06:00 67 27 98/59 (72) 100 Room Air 05/15/21 05:00 71 15 127/68 (87) 100 Room Air 05/15/21 04:00 71 15 101/47 (65) 100 Room Air 05/15/21 04:00 100 Room Air 05/15/21 03:45 73 15 125/75 (92) 100 Room Air 05/15/21 03:15 76 16 136/70 (92) 100 Room Air 05/15/21 02:45 78 12 125/70 (88) 100 Room Air 05/15/21 02:30 80 13 134/73 (93) 100 Room Air 05/15/21 02:22 81 05/15/21 02:15 81 38 132/90 (104) 100 Room Air 05/15/21 02:13 100 Room Air 05/15/21 02:05 36.2 83 18 155/116 (129) 100 Room Air 05/15/21 01:42 73 13 141/74 96 Room Air 05/14/21 22:53 35.4 67 16 71/51 (58) 100 Room Air I & O 05/15/21 07:00 Intake Total 1450 ml Output Total 600 ml Balance 850 ml Height & Weight Height: 5'1.00" Weight: 122lbs. 1.0oz. 55.070274ut; 23.68 BMI Method:Estimated General Appearance: Thin, Other (ON ARRIVAL, PT IS OBTUNDED AND SNORING. ON ATTEMPT TO PASS NASAL TRUMPET--PT IMMEDIATELY AWAKE, FIGHTING NASAL TRUMPET, TALKING AND WANTING PHENERGAN + BENADRYL. DIRTY, UNKEMPT. COVERED IN URINE AND FECES; WEARING ONLY T-SHIRT AND UNDERWEAR) HEENT: Other (POOR DENTITION; PUPILS DILATED/ EQUAL) Respiratory: Normal Breath Sounds, No Accessory Muscle Use, No Respiratory Distress Cardiovascular: Regular Rate, Rhythm, No Murmur Capillary Refill: Less Than 3 Seconds Neurologic/Psychiatric: No Motor/Sensory Deficits, Other (MENTATION ABOVE. PT IS AT BASELINE SOON SHE "WAKES UP" ) Skin: Normal Color, Warm/Dry, Other (COVERED IN URINE AND FECES. ) Results Lab Laboratory Tests 05/14/21 23:11 05/15/21 05:07 Assessment/Plan Assessment/Plan (Tele-ICU Physician , Progress Note ) Available chart/ vitals / labs / Images reviewed Video assessment done using teleICU camera, rest of exam as per RN Discussed with RN Events overnight Afebrile , RA hemodynamically stable, no pressors, I/O = pos Drips: As per RN exam : Consultants: Hospital course: A/P DM Type 1 with poor control, DKA *ISSI as pt report insulin sensitive , + long acting insulin *Tx Gastroparesis LANE / CKD - dehydration, hypotension - cont IVF - follow closely Irritable Bowel Disorder Fibromyalgia chronic neck and back pain- on chronic narcotics from pain management hx of blood clots in the upper extremities 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 Discussed with RN to reach out if any questions or concerns A total of 20 minutes of critical care time was devoted to this patient today, required to treat and/or prevent further deterioration of critical care condition ( as above ) MANUEL WADSWORTH MD May 15, 2021 13:31
[2021-05-15] MEDS ORDERED: LISI20TA26 PO (15:06)
[2021-05-15] MEDS ORDERED: AMLO-251 PO (15:06)
[2021-05-15] MEDS ORDERED: MTP100TCR PO (15:06)
[2021-05-15] MEDS ORDERED: inSUlin ASPART (NovoLOG) 1 UNIT/0.01 ML (CHARGE PER UNIT) SC NR (16:45)
[2021-05-15] MEDS ORDERED: ONDANSETRON 4 MG (ZOFRAN) ORAL DISSOLVE TAB PO PRN (19:00)
[2021-05-15] MEDS ORDERED: polyethylene glycoL POWDER 17 GM (MIRALAX) PACK PO PRN (19:00)
[2021-05-15] MEDS ORDERED: ACETAMINOPHEN 325 MG TABLET PO PRN (19:00)
[2021-05-15] MEDS ORDERED: ANTACID SUSP 30 ML UDC (MYLANTA) PO PRN (19:00)
[2021-05-15] MEDS ORDERED: MILK OF MAGNESIA 400 MG/5 ML 30 ML UDC PO PRN (19:00)
[2021-05-15] MEDS ORDERED: ONDANSETRON 4 MG/2 ML (SDV) Z0FRAN IV PRN (19:00)
[2021-05-15] MEDS: PROMETHAZINE 25 MG (PHENERGAN) TAB PO PRN (20:28)
[2021-05-15] MEDS: GABAPENTIN 400 MG (NEURONTIN) CAP PO SCH (20:28)
[2021-05-15] MEDS ORDERED: NON-FORMULARY MEDICATION 1 EA EA (Gabapentin 1,600 MG) PO SCH (21:00)
[2021-05-15] MEDS ORDERED: ENOXAPARIN 40 MG/0.4 ML (LOVENOX) SYR SQ SCH (21:45)
--- NOTE | 2021-05-15 21:51 | History & Physical-Hospitalist ---
History of Present Illness HPI/Chief Complaint Itzel Urbano is a 61 year old female with insulin dependent diabetes mellitus and frequent hospitalizations with DKA who presented with weakness. She tells me that he blood sugars "just shot up out of nowhere". She reports compliance with her insulin. She reports nausea. She reports pain in her legs which is chronic. She denies fevers and chills. She denies chest pain and shortness of breath. Source: patient Exam Limitations: no limitations Date Seen 05/15/21 Time Seen by a Provider: 08:55 Attending Physician Jazmine Berry DO PCP Gerardo Greenwood DO Referring Physician Date of Admission May 15, 2021 at 00:55 Home Medications & Allergies Home Medications Reviewed patient Home Medication Reconciliation performed by pharmacy medication reconciliations bio medical technician and/or nursing. Patients Allergies have been reviewed. Allergies Allergies Coded Allergies ketorolac (Verified Allergy, Severe, ANAPHYLAXIS, PT TAKES ASA AT HOME, 03/06/19) scopolamine (Verified Allergy, Mild, Rash, 03/21/19) exenatide (Verified Allergy, Unknown, NAUSEA, 03/06/19) NON STOP VOMITING latex (Verified Allergy, Unknown, RASH, 03/06/19) metoclopramide (Verified Allergy, Unknown, RESTLESS LEGS, 03/06/19) erythromycin base (Verified Adverse Reaction, Unknown, 03/21/19) Past Kgzoncx-Giholl-Fbzvcg Hx Patient Social History Tobacco Use?: No Smoking Status: Current Everyday Smoker Use of E-Cig and/or Vaping dev: No Substance use?: No Alcohol Use?: No Pt feels they are or have been: No Immunizations Up To Date Date of Influenza Vaccine: Nov 22, 2019 First/Initial COVID19 Vaccinat: Second COVID19 Vaccination Sharif: Tetanus Booster (TDap): Unknown Hepatitis A: No Hepatitis B: No PED Vaccines UTD: No Date of Pneumonia Vaccine: Nov 06, 2019 Seasonal Allergies Seasonal Allergies: Yes Current Status Advance Directives: Yes Communicates: Verbally Primary Language: Thai Past Medical History Surgeries: Cardiac, Coronary Stent, Ear Surgery, Gallbladder, Orthopedic, Renal Chronic Bronchitis, Sleep Apnea Currently Using CPAP: No Currently Using BIPAP: No Chronic Edema/Swelling, Coronary Artery Disease, Deep Vein Thrombosis, High Cholesterol, Hypertension, Palpitations, Peripheral Vascular Headaches /Migraines, Neuropathy [employer] History: 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 Diabetes Mellitus Type 1 with poor control 2. Hypertension 3.Hyperlipidemia 4.Chronic Kidney Disease 5. Irritable Bowel Disorder 6. Fibromyalgia 7.Psoriasis 8.chronic neck and back pain- on chronic narcotics from pain management 9. hx of blood clots in the upper extremities 10. Anxiety 11. Tobaccoism 12. 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 GERD 14. Diverticulosis 15. Seizure Disorder PSH: 1.Renal stent 2.cholecystectomy 3.Laminectomy 5.ear tubes as a child Family Medical History Reviewed Nursing Family Hx Cancer of mouth 19 FATHER ( of esophogeal cancer.) Cardiovascular disease 19 MOTHER G8 BROTHER Completed stroke 19 FATHER G8 BROTHER Diabetes mellitus G8 BROTHER FH: lung cancer 19 MOTHER Hypertension 19 FATHER Kidney disease 19 FATHER Myocardial infarction 19 MOTHER G8 BROTHER Respiratory disorder No Family History of: AIDS Cancer, Diabetes, Hypertension SOCIAL HISTORY: -ETOH--RARELY USES -DRUGS--Rx NARCOTIC ABUSE -SMOKES 1 PPD PSH: -LINQ DEVICE PLACED 11/09/19 FOR REPORTED PALPITATIONS X 6 MONTHS, SINCE PERCOCET WAS DC'D -MULTIPLE CARDIAC CATHS--STENT X 1 TO LAD 07/13/15. LAST CATH 01/18/19--NO INTERVENTION -LUMBAR SPINE FUSION X 3--12/2002, 04/2007, AND 05/2007 -LUMBAR DISCECTOMY 10/2000--? LAMINECTOMY? -CERVICAL SPINE FUSION 11/2006 -CHOLECYSTECTOMY 1983 -BMT'S -LITHOTRIPSY AND RIGHT URETERAL STENT -EGD'S WITH ESOPHAGEAL DILATIONS -COLONOSCOPIES, LAST ONE 03/08/19 -PORT RIGHT CHEST -LEFT SHOULDER ROTATOR CUFF REPAIR 05/01/20--DR. PALACIOS -CONTINUOUS GLUCOSE MONITOR PRESENT 06/25/20--LLQ OF ABDOMEN--NOT PRESENT 10/2020 -BILATERAL CATARACT SURGERY 10/2020 -PERIPHERAL ANGIOGRAM 05/02/[address] FELIX: SEVERE BILATERAL SUPERFICIAL FEMORAL ARTERY DISEASE AND RECOMMENDED BILATERAL FEMORAL-POPLITEAL SURGERY--REFERRED TO DR. SAWYER AT [facility] LONG HISTORY OF EXTREME NON-COMPLIANCE IN ALL ASPECTS OF CARE Review of Systems Constitutional: malaise, weakness EENTM: no symptoms reported Respiratory: cough Cardiovascular: no symptoms reported Gastrointestinal: nausea Genitourinary: no symptoms reported Musculoskeletal: no symptoms reported Skin: no symptoms reported Psychiatric/Neurological: No Symptoms Reported Physical Exam Physical Exam Vital Signs Vital Signs - First Documented 05/14/21 22:53 Temp 35.4 Pulse 67 Resp 16 B/P (MAP) 71/51 (58) Pulse Ox 100 O2 Delivery Room Air Capillary Refill : Less Than 3 Seconds Height, Weight, BMI Height: 5'1.00" Weight: 122lbs. 1.0oz. 55.701202kt; 23.68 BMI Method:Estimated General Appearance: No Apparent Distress, Chronically ill HEENT: PERRL/EOMI, Pharynx Normal Neck: Normal Inspection, Supple Respiratory: Lungs Clear, Normal Breath Sounds, No Respiratory Distress Cardiovascular: Regular Rate, Rhythm, No Edema, No Murmur Gastrointestinal: Normal Bowel Sounds, Non Tender, Soft Extremity: Normal Inspection, Non Tender, No Pedal Edema Neurologic/Psychiatric: Alert, Oriented x3, No Motor/Sensory Deficits, Normal Mood/Affect Skin: Normal Color, Warm/Dry Results Results/Procedures Labs Laboratory Tests 05/14/21 23:11 05/15/21 05:07 Patient resulted labs reviewed. Imaging: Reviewed Imaging Report Assessment/Plan Admission Diagnosis T1DM with hyperglycemia Admission Status: Inpatient Order (span 2 midnights) Reason for Inpatient Admission: IV fluids and insulin Assessment and Plan T1DM with hyperglycemia Brittle diabetes LANE on CKD Blood sugar >400 on arrival No evidence of DKA on arrival, normal anion gap Given insulin bolus Blood sugars improved, then dropped to 40 Given decreased dose of Levemir Novolog with meals Sliding scale insulin IV fluids Antiemetics DVT prophylaxis: Lovenox Diagnosis/Problems Diagnosis/Problems (1) Type 1 diabetes mellitus Status: Acute Qualifiers: Diabetes mellitus complication status: with hyperglycemia Qualified Codes: E10.65 - Type 1 diabetes mellitus with hyperglycemia (2) Brittle diabetes Status: Acute (3) Acute kidney injury superimposed on chronic kidney disease Status: Acute Clinical Quality Measures Smoking Cessation Counseling: Counseling-Symptomatic: 3-10 Minutes JUAN DAVID BRADSHAW MD May 15, 2021 21:51
[2021-05-15] MEDS: ENOXAPARIN 40 MG/0.4 ML (LOVENOX) SYR SQ SCH (23:07)
[2021-05-16] MEDS: PROMETHAZINE 25 MG (PHENERGAN) TAB PO PRN (01:54)
[2021-05-16] MEDS: 1/2 NS W/KCL 20 MEQ/L 1,000 ML IV SCH ×3 (04:46→21:07)
[2021-05-16 05:01] LABS: BASOPHILS # (AUTO) 0.1 10^3/uL (0.0-0.1); BASOPHILS % (AUTO) 1 % (0-10); EOSINOPHILS # (AUTO) 0.3 10^3/uL (0.0-0.3); EOSINOPHILS % (AUTO) 2 % (0-10); HEMATOCRIT 29 % (35-52); HEMOGLOBIN 9.4 g/dL (11.5-16.0); LYMPHOCYTES # (AUTO) 5.6 10^3/uL (1.0-4.0); LYMPHOCYTES % (AUTO) 37 % (12-44); MEAN CORPUSCULAR HEMOGLOBIN 28 pg (25-34); MEAN CORPUSCULAR HGB CONC 33 g/dL (32-36); MEAN CORPUSCULAR VOLUME 85 fL (80-99); MEAN PLATELET VOLUME 10.8 fL (9.0-12.2); MONOCYTES # (AUTO) 0.6 10^3/uL (0.0-1.0); MONOCYTES % (AUTO) 4 % (0-12); NEUTROPHILS # (AUTO) 8.4 10^3/uL (1.8-7.8); NEUTROPHILS % (AUTO) 56 % (42-75); PLATELET COUNT 227 10^3/uL (130-400); WHITE BLOOD COUNT 15.1 10^3/uL (4.3-11.0)
[2021-05-16 05:23] LABS: POTASSIUM 4.7 MMOL/L (3.6-5.0)
[2021-05-16 05:24] LABS: CALCIUM 7.3 MG/DL (8.5-10.1)
[2021-05-16] MEDS: POTASSIUM CL 10MEQ/50ML IVPB 50 ML IV SCH (05:26)
[2021-05-16] MEDS: KCL 20 MEQ TAB (K-DUR) PO SCH (05:26)
[2021-05-16] MEDS: inSUlin ASPART (NovoLOG) 1 UNIT/0.01 ML (CHARGE PER UNIT) SC SCH ×7 (05:27→20:32)
[2021-05-16 05:28] LABS: CREATININE SERUM 1.31 MG/DL (0.60-1.30); PHOSPHORUS 3.6 MG/DL (2.3-4.7)
[2021-05-16 05:31] LABS: MAGNESIUM 1.8 MG/DL (1.6-2.4)
[2021-05-16] MEDS: MAGNESIUM 1 GM/100 ML IVPB 100 ML IV SCH (05:54)
[2021-05-16] MEDS: PANTOPRAZOLE 40 MG (PROTONIX) TAB PO SCH ×2 (06:02→16:13)
[2021-05-16] MEDS: meTOprolol SUCCINATE 100 MG (TOPROL XL) TAB PO SCH (08:47)
[2021-05-16] MEDS: LOPERAMIDE 2 MG (IMODIUM) TABLET PO PRN (08:47)
[2021-05-16] MEDS: lisINopril 20 MG (PRINIVIL) TABLET PO SCH (08:47)
[2021-05-16] MEDS: ASPIRIN E.C. 81 MG (ECOTRIN) TAB PO SCH (08:47)
[2021-05-16] MEDS: GABAPENTIN 400 MG (NEURONTIN) CAP PO SCH ×2 (08:47→21:09)
[2021-05-16] MEDS: amLODIPine 10 MG (NORVASC) TAB PO SCH (08:47)
[2021-05-16] MEDS ORDERED: NON-FORMULARY MEDICATION 1 EA EA (Gabapentin 800 MG) PO SCH (09:00)
[2021-05-16] MEDS ORDERED: inSUlin ASPART (NovoLOG) 1 UNIT/0.01 ML (CHARGE PER UNIT) SC ONE (12:45)
--- NOTE | 2021-05-16 14:23 | Progress Note - Hospitalist ---
Subjective HPI/CC On Admission Date Seen by Provider: May 16, 2021 Time Seen by Provider: 10:15 Itzel Urbano is a 61 year old female with insulin dependent diabetes mellitus and frequent hospitalizations with DKA who presented with weakness. She tells me that he blood sugars "just shot up out of nowhere". She reports compliance with her insulin. She reports nausea. She reports pain in her legs which is chronic. She denies fevers and chills. She denies chest pain and shortness of breath. Subjective/Events-last exam She reports diarrhea. She reports abdominal pain. She has nausea and vomiting unchanged from normal. Focused Exam Lactate Level 05/14/21 23:11: Lactic Acid Level 3.01*H 05/15/21 01:30: Lactic Acid Level 1.39 Objective Exam Vital Signs Vital Signs Date Time Temp Pulse Resp B/P (MAP) Pulse Ox O2 Delivery O2 Flow Rate FiO2 05/16/21 12:00 37.0 68 20 111/62 (78) 96 Room Air Capillary Refill : Less Than 3 Seconds General Appearance: No Apparent Distress, Chronically ill Respiratory: Lungs Clear, Normal Breath Sounds, No Respiratory Distress Cardiovascular: Regular Rate, Rhythm, No Edema, No Murmur Gastrointestinal: Normal Bowel Sounds, Soft, Tenderness Extremity: Normal Inspection, Non Tender, No Pedal Edema Neurologic/Psychiatric: Alert, Depressed Affect Skin: Normal Color, Warm/Dry Results/Procedures Lab Laboratory Tests 05/16/21 04:49 Patient resulted labs reviewed. Imaging: Reviewed Imaging Report Assessment/Plan Assessment and Plan Assess & Plan/Chief Complaint T1DM with hyperglycemia Brittle diabetes LANE on CKD Increase to Levemir 15 units daily Incrrease to Novolog 5 units with meals Sliding scale insulin IV fluids Antiemetics Diarrhea Leukocytosis Likely contaminated blood culture UA negative CXR negative One set of blood cultures positive, likely contaminant Check C diff DVT prophylaxis: Lovenox Diagnosis/Problems Diagnosis/Problems (1) Type 1 diabetes mellitus Status: Acute Qualifiers: Diabetes mellitus complication status: with hyperglycemia Qualified Codes: E10.65 - Type 1 diabetes mellitus with hyperglycemia (2) Brittle diabetes Status: Acute (3) Acute kidney injury superimposed on chronic kidney disease Status: Acute Clinical Quality Measures Smoking Cessation Counseling: Counseling-Symptomatic: 3-10 Minutes JUAN DAVID BRADSHAW MD May 16, 2021 14:23
[2021-05-16] MEDS: ENOXAPARIN 40 MG/0.4 ML (LOVENOX) SYR SQ SCH (21:09)
[2021-05-17] MEDS: MELATONIN 3 MG TABLET PO PRN (00:29)
[2021-05-17] MEDS: PROMETHAZINE 25 MG (PHENERGAN) TAB PO PRN (00:29)
[2021-05-17] MEDS: 1/2 NS W/KCL 20 MEQ/L 1,000 ML IV SCH (00:31)
[2021-05-17 03:59] LABS: BASOPHILS # (AUTO) 0.1 10^3/uL (0.0-0.1); BASOPHILS % (AUTO) 1 % (0-10); EOSINOPHILS # (AUTO) 0.4 10^3/uL (0.0-0.3); EOSINOPHILS % (AUTO) 3 % (0-10); HEMATOCRIT 29 % (35-52); HEMOGLOBIN 9.5 g/dL (11.5-16.0); LYMPHOCYTES # (AUTO) 6.4 10^3/uL (1.0-4.0); LYMPHOCYTES % (AUTO) 47 % (12-44); MEAN CORPUSCULAR HEMOGLOBIN 29 pg (25-34); MEAN CORPUSCULAR HGB CONC 33 g/dL (32-36); MEAN CORPUSCULAR VOLUME 87 fL (80-99); MEAN PLATELET VOLUME 10.8 fL (9.0-12.2); MONOCYTES # (AUTO) 0.5 10^3/uL (0.0-1.0); MONOCYTES % (AUTO) 4 % (0-12); NEUTROPHILS % (AUTO) 45 % (42-75); PLATELET COUNT 237 10^3/uL (130-400); WHITE BLOOD COUNT 13.5 10^3/uL (4.3-11.0)
[2021-05-17 04:23] LABS: POTASSIUM 5.9 MMOL/L (3.6-5.0)
[2021-05-17 04:24] LABS: CALCIUM 7.5 MG/DL (8.5-10.1)
[2021-05-17 04:28] LABS: PHOSPHORUS 4.2 MG/DL (2.3-4.7)
[2021-05-17 04:29] LABS: CREATININE SERUM 1.56 MG/DL (0.60-1.30)
[2021-05-17 04:31] LABS: MAGNESIUM 1.6 MG/DL (1.6-2.4)
[2021-05-17] MEDS: MAGNESIUM 1 GM/100 ML IVPB 100 ML IV SCH (04:38)
[2021-05-17] MEDS: KCL 20 MEQ TAB (K-DUR) PO SCH (04:38)
[2021-05-17] MEDS: POTASSIUM CL 10MEQ/50ML IVPB 50 ML IV SCH (04:38)
[2021-05-17] MEDS: PANTOPRAZOLE 40 MG (PROTONIX) TAB PO SCH ×2 (06:41→15:32)
[2021-05-17] MEDS: inSUlin ASPART (NovoLOG) 1 UNIT/0.01 ML (CHARGE PER UNIT) SC SCH ×7 (06:41→20:46)
[2021-05-17] MEDS: GABAPENTIN 400 MG (NEURONTIN) CAP PO SCH ×2 (10:37→20:46)
[2021-05-17] MEDS: meTOprolol SUCCINATE 100 MG (TOPROL XL) TAB PO SCH (10:38)
[2021-05-17] MEDS: amLODIPine 10 MG (NORVASC) TAB PO SCH (10:38)
[2021-05-17] MEDS: ASPIRIN E.C. 81 MG (ECOTRIN) TAB PO SCH (10:38)
[2021-05-17] MEDS: lisINopril 20 MG (PRINIVIL) TABLET PO SCH (10:38)
[2021-05-17] MEDS: LACTATED RINGERS 1,000 ML IV SCH ×2 (10:39→18:19)
[2021-05-17 11:08] LABS: POTASSIUM 5.1 MMOL/L (3.6-5.0)
[2021-05-17 11:09] LABS: CALCIUM 8.2 MG/DL (8.5-10.1)
[2021-05-17 11:13] LABS: CREATININE SERUM 1.74 MG/DL (0.60-1.30)
--- NOTE | 2021-05-17 11:51 | Progress Note - Hospitalist ---
Subjective HPI/CC On Admission Date Seen by Provider: May 17, 2021 Time Seen by Provider: 10:15 Itzel Urbano is a 61 year old female with insulin dependent diabetes mellitus and frequent hospitalizations with DKA who presented with weakness. She tells me that he blood sugars "just shot up out of nowhere". She reports compliance with her insulin. She reports nausea. She reports pain in her legs which is chronic. She denies fevers and chills. She denies chest pain and shortness of breath. Subjective/Events-last exam She is still having diarrhea. She thinks she is feeling well enough to go home. She is still having nausea. Focused Exam Lactate Level 05/14/21 23:11: Lactic Acid Level 3.01*H 05/15/21 01:30: Lactic Acid Level 1.39 Objective Exam Vital Signs Vital Signs Date Time Temp Pulse Resp B/P (MAP) Pulse Ox O2 Delivery O2 Flow Rate FiO2 05/17/21 08:00 Room Air 05/17/21 07:40 36.4 66 18 95/58 (70) 100 Capillary Refill : Less Than 3 Seconds General Appearance: No Apparent Distress, Chronically ill Respiratory: Lungs Clear, Normal Breath Sounds, No Respiratory Distress Cardiovascular: Regular Rate, Rhythm, No Edema, No Murmur Gastrointestinal: Normal Bowel Sounds, Non Tender, Soft Extremity: Normal Inspection, Non Tender, No Pedal Edema Neurologic/Psychiatric: Alert, Oriented x3, No Motor/Sensory Deficits, Normal Mood/Affect Skin: Normal Color, Warm/Dry Results/Procedures Lab Laboratory Tests 05/17/21 03:50 05/17/21 10:49 Patient resulted labs reviewed. Imaging: Reviewed Imaging Report Assessment/Plan Assessment and Plan Assess & Plan/Chief Complaint T1DM with hyperglycemia Brittle diabetes LANE on CKD Levemir Novolog with meals Sliding scale insulin Increase IV fluids Antiemetics Diarrhea Leukocytosis Likely contaminated blood culture UA negative CXR negative One set of blood cultures positive, likely contaminant Repeat blood cultures C diff negative Imodium as needed DVT prophylaxis: Lovenox Diagnosis/Problems Diagnosis/Problems (1) Type 1 diabetes mellitus Status: Acute Qualifiers: Diabetes mellitus complication status: with hyperglycemia Qualified Codes: E10.65 - Type 1 diabetes mellitus with hyperglycemia (2) Brittle diabetes Status: Acute (3) Acute kidney injury superimposed on chronic kidney disease Status: Acute Clinical Quality Measures Smoking Cessation Counseling: Counseling-Symptomatic: 3-10 Minutes LEEANN,JUAN DAVID M MD May 17, 2021 11:51
[2021-05-17] MEDS: LOPERAMIDE 2 MG (IMODIUM) TABLET PO PRN ×3 (11:52→20:46)
[2021-05-17] MEDS: ENOXAPARIN 40 MG/0.4 ML (LOVENOX) SYR SQ SCH (20:46)
[2021-05-18] MEDS: LACTATED RINGERS 1,000 ML IV SCH ×2 (00:26→14:41)
[2021-05-18] MEDS: MELATONIN 3 MG TABLET PO PRN ×2 (01:31→22:22)
[2021-05-18] MEDS: PROMETHAZINE 25 MG (PHENERGAN) TAB PO PRN ×2 (01:31→22:22)
[2021-05-18 03:25] LABS: BASOPHILS # (AUTO) 0.1 10^3/uL (0.0-0.1); BASOPHILS % (AUTO) 1 % (0-10); EOSINOPHILS # (AUTO) 0.5 10^3/uL (0.0-0.3); EOSINOPHILS % (AUTO) 4 % (0-10); HEMATOCRIT 26 % (35-52); HEMOGLOBIN 8.6 g/dL (11.5-16.0); LYMPHOCYTES # (AUTO) 4.3 10^3/uL (1.0-4.0); LYMPHOCYTES % (AUTO) 29 % (12-44); MEAN CORPUSCULAR HEMOGLOBIN 28 pg (25-34); MEAN CORPUSCULAR HGB CONC 33 g/dL (32-36); MEAN CORPUSCULAR VOLUME 86 fL (80-99); MEAN PLATELET VOLUME 10.5 fL (9.0-12.2); MONOCYTES # (AUTO) 0.7 10^3/uL (0.0-1.0); MONOCYTES % (AUTO) 5 % (0-12); NEUTROPHILS # (AUTO) 9.1 10^3/uL (1.8-7.8); NEUTROPHILS % (AUTO) 62 % (42-75); PLATELET COUNT 200 10^3/uL (130-400); WHITE BLOOD COUNT 14.8 10^3/uL (4.3-11.0)
[2021-05-18 03:49] LABS: POTASSIUM 5.3 MMOL/L (3.6-5.0)
[2021-05-18 03:50] LABS: CALCIUM 7.8 MG/DL (8.5-10.1)
[2021-05-18] MEDS: KCL 20 MEQ TAB (K-DUR) PO SCH (03:50)
[2021-05-18] MEDS: POTASSIUM CL 10MEQ/50ML IVPB 50 ML IV SCH (03:50)
[2021-05-18 03:55] LABS: CREATININE SERUM 1.85 MG/DL (0.60-1.30); PHOSPHORUS 4.3 MG/DL (2.3-4.7)
[2021-05-18 03:57] LABS: MAGNESIUM 1.7 MG/DL (1.6-2.4)
[2021-05-18] MEDS: MAGNESIUM 1 GM/100 ML IVPB 100 ML IV SCH (04:09)
[2021-05-18] MEDS: inSUlin ASPART (NovoLOG) 1 UNIT/0.01 ML (CHARGE PER UNIT) SC SCH ×7 (06:45→22:21)
[2021-05-18] MEDS: PANTOPRAZOLE 40 MG (PROTONIX) TAB PO SCH ×2 (06:45→16:43)
[2021-05-18] MEDS: GABAPENTIN 400 MG (NEURONTIN) CAP PO SCH ×2 (08:44→22:21)
[2021-05-18] MEDS: ASPIRIN E.C. 81 MG (ECOTRIN) TAB PO SCH (08:44)
[2021-05-18] MEDS: amLODIPine 10 MG (NORVASC) TAB PO SCH (08:45)
[2021-05-18] MEDS: meTOprolol SUCCINATE 100 MG (TOPROL XL) TAB PO SCH (08:45)
[2021-05-18] MEDS ORDERED: LACTATED RINGERS 1,000 ML IV ONE (11:15)
[2021-05-18] MEDS ORDERED: DEXTROSE 50% 50 ML (IMS) SYR ONE (11:22)
[2021-05-18] MEDS ORDERED: DEXTROSE 50% 50 ML (IMS) SYR IV ONE (11:30)
--- NOTE | 2021-05-18 12:53 | Diagnostic Imaging Report ---
EXAMINATION: Chest 1 view HISTORY: Dyspnea COMPARISON: 05/14/2021 FINDINGS: Heart size and pulmonary vasculature are stable. Right IJ central line is unchanged. The lungs are clear without consolidation, pleural effusion, or pneumothorax. Degenerative changes of the thoracic spine. Osseous structures are otherwise intact. Cervical fusion hardware is present. IMPRESSION: 1. No acute radiographic abnormality in the chest. Dictated by: Dictated on workstation # [id number]
--- NOTE | 2021-05-18 13:13 | Progress Note - Hospitalist ---
Subjective HPI/CC On Admission Date Seen by Provider: May 18, 2021 Time Seen by Provider: 10:55 Itzel Urbano is a 61 year old female with insulin dependent diabetes mellitus and frequent hospitalizations with DKA who presented with weakness. She tells me that he blood sugars "just shot up out of nowhere". She reports compliance with her insulin. She reports nausea. She reports pain in her legs which is chronic. She denies fevers and chills. She denies chest pain and shortness of breath. Subjective/Events-last exam Her diarrhea has improved. She denies any shortness of breath or cough. Objective Exam Vital Signs Vital Signs Date Time Temp Pulse Resp B/P (MAP) Pulse Ox O2 Delivery O2 Flow Rate FiO2 05/18/21 11:15 36.6 69 12 86/48 (61) 98 Room Air Capillary Refill : Less Than 3 Seconds General Appearance: Chronically ill, Mild Distress (Drowsy) Respiratory: Lungs Clear, Normal Breath Sounds, No Respiratory Distress Cardiovascular: Regular Rate, Rhythm, No Murmur Gastrointestinal: Normal Bowel Sounds, Non Tender, Soft Extremity: Normal Inspection, Non Tender, Pedal Edema Neurologic/Psychiatric: Normal Mood/Affect, Disoriented (Drowsy) Skin: Normal Color, Warm/Dry Results/Procedures Lab Laboratory Tests 05/18/21 03:15 Patient resulted labs reviewed. Imaging: Reviewed Imaging Report Assessment/Plan Assessment and Plan Assess & Plan/Chief Complaint T1DM with hypoglycemia Brittle diabetes LANE on CKD Levemir Novolog with meals Modify sliding scale insulin Continue IV fluids Antiemetics Diarrhea Leukocytosis Likely contaminated blood culture Repeat UA Repeat CXR One set of blood cultures positive, likely contaminant Repeat blood cultures pending C diff negative Imodium as needed DVT prophylaxis: Lovenox Diagnosis/Problems Diagnosis/Problems (1) Type 1 diabetes mellitus Status: Acute Qualifiers: Diabetes mellitus complication status: with hypoglycemia (2) Brittle diabetes Status: Acute (3) Acute kidney injury superimposed on chronic kidney disease Status: Acute Clinical Quality Measures Smoking Cessation Counseling: Counseling-Symptomatic: 3-10 Minutes JUAN DAVID BRADSHAW MD May 18, 2021 13:13
[2021-05-18 14:10] LABS: BILIRUBIN,URINE NEGATIVE (NEGATIVE); CLARITY,URINE CLEAR; COLOR,URINE YELLOW; GLUCOSE, URINE (UA) NEGATIVE (NEGATIVE); KETONES,URINE NEGATIVE (NEGATIVE); LEUKOCYTE ESTERASE ,URINE NEGATIVE (NEGATIVE); NITRITE,URINE NEGATIVE (NEGATIVE); PROTEIN,URINE 2+ (NEGATIVE)
[2021-05-18 14:17] LABS: BACTERIA,URINE FEW /HPF; HYALINE CASTS, URINE 0-2 /LPF
[2021-05-18] MEDS ORDERED: ENOXAPARIN 30 MG/0.3 ML (LOVENOX) SYR SC SCH (21:00)
[2021-05-18] MEDS ORDERED: ALPRAZolam 0.5 MG (XANAX) TAB PO PRN (23:00)
[2021-05-19] MEDS: LACTATED RINGERS 1,000 ML IV SCH ×2 (00:20→00:49)
[2021-05-19 04:35] LABS: BASOPHILS # (AUTO) 0.1 10^3/uL (0.0-0.1); BASOPHILS % (AUTO) 1 % (0-10); EOSINOPHILS # (AUTO) 0.5 10^3/uL (0.0-0.3); EOSINOPHILS % (AUTO) 4 % (0-10); HEMATOCRIT 24 % (35-52); HEMOGLOBIN 7.9 g/dL (11.5-16.0); LYMPHOCYTES # (AUTO) 3.8 10^3/uL (1.0-4.0); LYMPHOCYTES % (AUTO) 31 % (12-44); MEAN CORPUSCULAR HEMOGLOBIN 29 pg (25-34); MEAN CORPUSCULAR HGB CONC 33 g/dL (32-36); MEAN CORPUSCULAR VOLUME 87 fL (80-99); MEAN PLATELET VOLUME 11.4 fL (9.0-12.2); MONOCYTES # (AUTO) 0.6 10^3/uL (0.0-1.0); MONOCYTES % (AUTO) 5 % (0-12); NEUTROPHILS # (AUTO) 7.1 10^3/uL (1.8-7.8); NEUTROPHILS % (AUTO) 59 % (42-75); PLATELET COUNT 184 10^3/uL (130-400); WHITE BLOOD COUNT 12.2 10^3/uL (4.3-11.0)
[2021-05-19 04:46] LABS: POTASSIUM 5.4 MMOL/L (3.6-5.0)
[2021-05-19 04:47] LABS: CALCIUM 7.7 MG/DL (8.5-10.1)
[2021-05-19 04:51] LABS: CREATININE SERUM 1.68 MG/DL (0.60-1.30); PHOSPHORUS 3.9 MG/DL (2.3-4.7)
[2021-05-19 04:53] LABS: MAGNESIUM 1.6 MG/DL (1.6-2.4)
[2021-05-19] MEDS: POTASSIUM CL 10MEQ/50ML IVPB 50 ML IV SCH (05:01)
[2021-05-19] MEDS: KCL 20 MEQ TAB (K-DUR) PO SCH (05:02)
[2021-05-19] MEDS: MAGNESIUM 1 GM/100 ML IVPB 100 ML IV SCH (05:02)
[2021-05-19] MEDS: PANTOPRAZOLE 40 MG (PROTONIX) TAB PO SCH (06:07)
[2021-05-19] MEDS: inSUlin ASPART (NovoLOG) 1 UNIT/0.01 ML (CHARGE PER UNIT) SC SCH ×2 (06:07)
--- NOTE | 2021-05-19 07:55 | Discharge Inst-Simple/Standard ---
Discharge Inst-Standard Patient Instructions/Follow Up Plan of Care/Instructions/FU: Please continue to take your medications as written. Please follow up with Dr Greenwood this week to follow up this hospital stay and for furhter blood work. Please keep your appointment today with your pain doctor. Activity as Tolerated: Yes Discharge Diet: ADA Diet Return to The Hospital For: Chest pain, shortness of breath, fever, nausea, vomiting, very high or low blood sugars that you have difficulty controlling, weakness, lethargy, if you feel you are getting worse. GERARDO RITTER MD May 19, 2021 07:55
--- NOTE | 2021-05-19 07:56 | Discharge Summary ---
Diagnosis/Chief Complaint Date of Admission May 15, 2021 at 00:55 Date of Discharge Discharge Date: May 19, 2021 Admission Diagnosis T1DM with hyperglycemia Primary Care Gerardo Calabrese DO Discharge Diagnosis (1) Type 1 diabetes mellitus Status: Acute (2) Brittle diabetes Status: Acute (3) Acute kidney injury superimposed on chronic kidney disease Status: Acute Discharge Summary Discharge Physical Exam Allergies: Coded Allergies: ketorolac (Verified Allergy, Severe, ANAPHYLAXIS, PT TAKES ASA AT HOME, 03/06/19) scopolamine (Verified Allergy, Mild, Rash, 03/21/19) exenatide (Verified Allergy, Unknown, NAUSEA, 03/06/19) NON STOP VOMITING latex (Verified Allergy, Unknown, RASH, 03/06/19) metoclopramide (Verified Allergy, Unknown, RESTLESS LEGS, 03/06/19) erythromycin base (Verified Adverse Reaction, Unknown, 03/21/19) Vitals & I&Os Vital Signs Date Time Temp Pulse Resp B/P (MAP) Pulse Ox O2 Delivery O2 Flow Rate FiO2 05/19/21 09:20 36.5 65 20 101/52 96 Room Air General Appearance: No Apparent Distress, WD/WN Neurologic/Psychiatric: Alert, Oriented x3 Hospital Course Pt was admitted due to uncontrolled diabetes and very high blood sugars. She did not appear to be in DKA and her blood sugar was quickly corrected. She suffered a slightly LANE and had diarrhea. C diff was checked and was negative. Her LANE improved with IVF. She had an appointment with a pain specialist in [place] on the day of discharge and was insistent upon discharge to get to that appointment. She was discharged in stable condition. I did call and speak with Dr Calabrese regarding her admission and need for close follow up. Labs (last 24 hrs) Microbiology 05/18/21 Urine Culture - Final, Complete Enterococcus faecalis 05/17/21 Blood Culture - Preliminary, Resulted No growth 05/16/21 C. difficile GDH Antigen & Toxins - Final, Complete 05/15/21 MRSA Screen - Final, Complete MRSA not isolated Patient resulted labs reviewed. Pending Labs Imaging: Reviewed Imaging Report Discussion & Recommendations Discharge Planning: >30 minutes discharge planning Discharge Home Medications: Active Scripts Active Reported Amlodipine Besylate 10 Mg Tablet 10 Mg PO DAILY Metoprolol Succinate 100 Mg Tab.er.24h 100 Mg PO DAILY Novolog Flexpen (Insulin Aspart) 300 Units/3 Ml Solution 5 Units SQ AC LAST FILLED 09-20-2020 #10 PENS Levemir (Insulin Determir) 1,000 Units/10 Ml Soln 15 Units SQ DAILY Aspirin EC (Aspirin) 81 Mg Tablet.dr 81 Mg PO DAILY Oxycodone HCl 15 Mg Tablet 15 Mg PO QID Pantoprazole Sodium 40 Mg Tablet.dr 40 Mg PO BIDAC Promethazine Tablet (Promethazine HCl) 25 Mg Tablet 25 Mg PO TID PRN Atorvastatin Calcium 20 Mg Tablet 20 Mg PO HS Gabapentin 800 Mg Tablet 800 Mg PO DAILY Gabapentin 800 Mg Tablet 1,600 Mg PO HS TAKES 2 (800MG) TABLETS Instructions to patient/family Please see electronic discharge instructions given to patient. Clinical Quality Measures Smoking Cessation Counseling: Counseling-Symptomatic: 3-10 Minutes Copy Copies To 1: GERARDO CALABRESE DO Problem Qualifiers (1) Type 1 diabetes mellitus: Diabetes mellitus complication status: with hypoglycemia GERARDO RITTER MD May 19, 2021 07:56
[2021-05-19] MEDS: amLODIPine 10 MG (NORVASC) TAB PO SCH (08:21)
[2021-05-19] MEDS: GABAPENTIN 400 MG (NEURONTIN) CAP PO SCH (08:21)
[2021-05-19] MEDS: meTOprolol SUCCINATE 100 MG (TOPROL XL) TAB PO SCH (08:21)
[2021-05-19] MEDS: ASPIRIN E.C. 81 MG (ECOTRIN) TAB PO SCH (08:21)
[2021-05-19 09:20] VITALS: BP 101/52
== END 2021-05-19 09:30 | disposition home or self-care (01) | DRG 638 ==
LOC: EDUNIT# 22:53 → ER 22:54 → ICU 05-15 00:55 → 4TH 05-15 14:23
PROVIDERS: ADMIT Internal Medicine; ATTEND Internal Medicine
DX: E10.10 Type 1 diabetes mellitus with ketoacidosis without coma (principal); N17.9 Acute kidney failure, unspecified; E83.42 Hypomagnesemia; E86.0 Dehydration; E83.51 Hypocalcemia; I25.10 Atherosclerotic heart disease of native coronary artery without angina pectoris; E78.00 Pure hypercholesterolemia, unspecified; I12.9 Hypertensive chronic kidney disease with stage 1 through stage 4 chronic kidney disease, or unspecified chronic kidney disease; E10.51 Type 1 diabetes mellitus with diabetic peripheral angiopathy without gangrene; E10.40 Type 1 diabetes mellitus with diabetic neuropathy, unspecified; G43.909 Migraine, unspecified, not intractable, without status migrainosus; K21.9 Gastro-esophageal reflux disease without esophagitis; M79.7 Fibromyalgia; G89.29 Other chronic pain; M54.9 Dorsalgia, unspecified; F41.9 Anxiety disorder, unspecified; F17.210 Nicotine dependence, cigarettes, uncomplicated; N18.9 Chronic kidney disease, unspecified; K58.9 Irritable bowel syndrome, unspecified; G40.909 Epilepsy, unspecified, not intractable, without status epilepticus; K57.90 Diverticulosis of intestine, part unspecified, without perforation or abscess without bleeding; M54.2 Cervicalgia; E10.43 Type 1 diabetes mellitus with diabetic autonomic (poly)neuropathy; K31.84 Gastroparesis; E10.22 Type 1 diabetes mellitus with diabetic chronic kidney disease; R19.7 Diarrhea, unspecified; D72.829 Elevated white blood cell count, unspecified; Z91.14 Patient's other noncompliance with medication regimen; Z95.5 Presence of coronary angioplasty implant and graft; Z86.718 Personal history of other venous thrombosis and embolism; Z79.4 Long term (current) use of insulin; Z79.82 Long term (current) use of aspirin; Z79.899 Other long term (current) drug therapy
CPT/HCPCS: 36415; 71045; 80048; 80053; 80306; 80320; 80329; 81000; 82150; 82550; 82553; 82805; 82947; 83605; 83690; 83735; 83874; 84100; 84145; 84484; 85007; 85025; 85027; 87040; 87077; 87081; 87088; 87186; 87324; 87449; 90471; 93005; 93041; 96374; 96375; 99291

== ENCOUNTER 2021-06-12 18:18 | Observation (INO) | payer MEDICARE ==
[~2021-06-12] VITALS: Ht 152 cm; Wt 56.0 kg
[2021-06-12] MEDS ORDERED: LACTATED RINGERS 1,000 ML IV ONE (18:30)
[2021-06-12 18:40] LABS: BASOPHILS # (AUTO) 0.1 10^3/uL (0.0-0.1); BASOPHILS % (AUTO) 1 % (0-10); EOSINOPHILS # (AUTO) 0.5 10^3/uL (0.0-0.3); EOSINOPHILS % (AUTO) 5 % (0-10); HEMATOCRIT 28 % (35-52); HEMOGLOBIN 9.1 g/dL (11.5-16.0); LYMPHOCYTES # (AUTO) 3.6 10^3/uL (1.0-4.0); LYMPHOCYTES % (AUTO) 39 % (12-44); MEAN CORPUSCULAR HEMOGLOBIN 28 pg (25-34); MEAN CORPUSCULAR HGB CONC 33 g/dL (32-36); MEAN CORPUSCULAR VOLUME 86 fL (80-99); MONOCYTES # (AUTO) 0.4 10^3/uL (0.0-1.0); MONOCYTES % (AUTO) 4 % (0-12); NEUTROPHILS # (AUTO) 4.7 10^3/uL (1.8-7.8); NEUTROPHILS % (AUTO) 50 % (42-75); PLATELET COUNT 255 10^3/uL (130-400); WHITE BLOOD COUNT 9.3 10^3/uL (4.3-11.0)
[2021-06-12 18:52] LABS: POTASSIUM 4.9 MMOL/L (3.6-5.0)
[2021-06-12 18:56] LABS: BILIRUBIN,TOTAL 0.3 MG/DL (0.1-1.0)
[2021-06-12 18:58] LABS: CREATININE SERUM 2.09 MG/DL (0.60-1.30)
--- NOTE | 2021-06-12 19:21 | ED General ---
General Chief Complaint: Cardiac/General Problems Stated Complaint: HYPOTENSION Nursing Triage Note: PT ARRIVED PER EMS, PT WAS AT [facility] AND BECAME WEAK AND NEARLY HAD SYNCOPAL EPISODE. EMS WAS CALLED BY [facility] STAFF. PT HAS GROSHONG IN R CHEST WALL. PT STATES SHE DROVE HER COVID + NIECE HOME YESTERDAY. PT FSBS 265, B/P 70/47 BY EMS Source of Information: Patient, EMS Exam Limitations: No Limitations History of Present Illness Date Seen by Provider: Jun 12, 2021 Time Seen by Provider: 18:23 Initial Comments This 61-year-old woman presents to the emergency room via EMS from the [facility] where she was found to be staggering and stumbling. EMS was activated and she was found to be hypotensive with blood pressures in the 70s/40s. Patient reports having a recent diarrhea and coarse cough over the past couple of days. She denies fever, vomiting, or other acute infectious symptoms. She did have contact with a Covid positive family member a couple of days ago. She has been fully vaccinated. She reports her legs feel uncomfortable as though they are swollen although they are not swollen. She is well-known to this ER and is a brittle diabetic. Blood sugar per EMS was 265. She is afebrile at present. She is noted to have a heart rate in the upper 50s likely related to her beta- ruth ann use. Allergies and Home Medications Allergies Coded Allergies: ketorolac (Verified Allergy, Severe, ANAPHYLAXIS, PT TAKES ASA AT HOME, 03/06/19) scopolamine (Verified Allergy, Mild, Rash, 03/21/19) exenatide (Verified Allergy, Unknown, NAUSEA, 03/06/19) NON STOP VOMITING latex (Verified Allergy, Unknown, RASH, 03/06/19) metoclopramide (Verified Allergy, Unknown, RESTLESS LEGS, 03/06/19) erythromycin base (Verified Adverse Reaction, Unknown, 03/21/19) Home Medications Amlodipine Besylate 10 Mg Tablet, 10 MG PO DAILY, (Reported) Aspirin 81 Mg Tablet.dr, 81 MG PO DAILY, (Reported) Atorvastatin Calcium 20 Mg Tablet, 20 MG PO HS, (Reported) Gabapentin 800 Mg Tablet, 1,600 MG PO HS, (Reported) TAKES 2 (800MG) TABLETS Gabapentin 800 Mg Tablet, 800 MG PO DAILY, (Reported) Insulin Aspart 300 Units/3 Ml Solution, 5 UNITS SQ AC, (Reported) LAST FILLED 09-20-2020 #10 PENS Insulin Determir 1,000 Units/10 Ml Soln, 15 UNITS SQ DAILY, (Reported) Metoprolol Succinate 100 Mg Tab.er.24h, 100 MG PO DAILY, (Reported) Oxycodone HCl 15 Mg Tablet, 15 MG PO QID, (Reported) Pantoprazole Sodium 40 Mg Tablet.dr, 40 MG PO BIDAC, (Reported) Promethazine HCl 25 Mg Tablet, 25 MG PO TID PRN for NAUSEA/VOMITING, (Reported) Patient Home Medication List Home Medication List Reviewed: Yes Review of Systems Review of Systems Constitutional: see HPI EENTM: no symptoms reported Respiratory: see HPI, cough Cardiovascular: see HPI Gastrointestinal: see HPI, diarrhea Genitourinary: no symptoms reported : No Musculoskeletal: no symptoms reported Skin: no symptoms reported Psychiatric/Neurological: See HPI Hematologic/Lymphatic: No Symptoms Reported Immunological/Allergic: no symptoms reported Past Givfqtl-Igktun-Rqasfk Hx Patient Social History Tobacco Use?: Yes Tobacco type used: Cigarettes Smoking Status: Current Everyday Smoker Substance use?: No Alcohol Use?: No Pt feels they are or have been: No Immunizations Up To Date Tetanus Booster (TDap): Unknown PED Vaccines UTD: No COVID19 Vaccine Sustainability Coach: STATES HAS HAD BOTH MODERNA VACCINES Seasonal Allergies Seasonal Allergies: Yes Past Medical History Surgeries: Yes (EGD and colonoscopy) Cardiac, Coronary Stent, Ear Surgery, Gallbladder, Orthopedic, Renal Respiratory: Yes Chronic Bronchitis, Sleep Apnea Currently Using CPAP: No Currently Using BIPAP: No Cardiac: Yes (DVT'S IN ARMS; CARDIAC STENT X 1; CAROTID DISEASE;LINQ DEVICE;SEVERE PAD) Chronic Edema/Swelling, Coronary Artery Disease, Deep Vein Thrombosis, High Cholesterol, Hypertension, Palpitations, Peripheral Vascular Neurological: Yes (NEUROPATHY IN HANDS AND FEET) Headaches /Migraines, Neuropathy 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 Disorders: No 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 Disorders: Denies NURSES 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 History: Menopausal Sexually Transmitted Disease: No HIV/AIDS: No Genitourinary: Yes Bladder Infection, Kidney Stones, Renal Failure Gastrointestinal: Yes Gastroesophageal Reflux Musculoskeletal: Yes (CHRONIC GENERALIZED PAIN;CHRONIC BILAT SHOULDER PAIN;CHRONIC NECK PAIN ) Degenerate Disk Disease, Fibromyalgia, Chronic Back Pain Endocrine: Yes (NON-COMPLAINT;MULTIPLE EPISODES OF DKA-EASILY CONTROLLED ON INSULIN IN HOSP) Diabetes, Insulin dep HEENT: Yes (GLASSES; S/P BMT'S;BILAT CATARACT SURGERY 10/2020) Cataract, Chronic Ear Infection Loss of Vision: Bilateral Hearing Impairment: Hard of Hearing Cancer: No Psychosocial: Yes Anxiety Integumentary: Yes Psoriasis Blood Disorders: No Adverse Reaction/Blood Tranf: No Family Medical History Cancer of mouth 19 FATHER ( of esophogeal cancer.) Cardiovascular disease 19 MOTHER G8 BROTHER Completed stroke 19 FATHER G8 BROTHER Diabetes mellitus G8 BROTHER FH: lung cancer 19 MOTHER Hypertension 19 FATHER Kidney disease 19 FATHER Myocardial infarction 19 MOTHER G8 BROTHER Respiratory disorder No Family History of: AIDS Cancer, Diabetes, Hypertension SOCIAL HISTORY: -ETOH--RARELY USES -DRUGS--Rx NARCOTIC ABUSE -SMOKES 1 PPD PSH: -LINQ DEVICE PLACED 11/09/19 FOR REPORTED PALPITATIONS X 6 MONTHS, SINCE PERCOCET WAS DC'D -MULTIPLE CARDIAC CATHS--STENT X 1 TO LAD 07/13/15. LAST CATH 01/18/19--NO INTERVENTION -LUMBAR SPINE FUSION X 3--12/2002, 04/2007, AND 05/2007 -LUMBAR DISCECTOMY 10/2000--? LAMINECTOMY? -CERVICAL SPINE FUSION 11/2006 -CHOLECYSTECTOMY 1983 -BMT'S -LITHOTRIPSY AND RIGHT URETERAL STENT -EGD'S WITH ESOPHAGEAL DILATIONS -COLONOSCOPIES, LAST ONE 03/08/19 -PORT RIGHT CHEST -LEFT SHOULDER ROTATOR CUFF REPAIR 05/01/20--DR. PALACIOS -CONTINUOUS GLUCOSE MONITOR PRESENT 06/25/20--LLQ OF ABDOMEN--NOT PRESENT 10/2020 -BILATERAL CATARACT SURGERY 10/2020 -PERIPHERAL ANGIOGRAM 05/02/[address] FELIX: SEVERE BILATERAL SUPERFICIAL FEMORAL ARTERY DISEASE AND RECOMMENDED BILATERAL FEMORAL-POPLITEAL SURGERY--REFERRED TO DR. SAWYER AT [facility] HISTORY OF EXTREME NON-COMPLIANCE IN ALL ASPECTS OF CARE Physical Exam-Suspected Sepsis Physical Exam Vital Signs Vital Signs - First Documented 06/12/21 06/12/21 18:18 22:18 Temp 36.5 Pulse 61 Resp 18 B/P (MAP) 119/51 Pulse Ox 95 O2 Delivery Room Air Capillary Refill : Less Than 3 Seconds Height, Weight, BMI Height: 5'1.00" Weight: 122lbs. 1.0oz. [id number]; 24.00 BMI Method:Estimated General Appearance: No Apparent Distress, WD/WN, Other (Somnolent, weak) HEENT: PERRL/EOMI, Normal ENT Inspection, Pharynx Normal Neck: Normal Inspection Respiratory: Lungs Clear, Normal Breath Sounds, No Accessory Muscle Use Cardiovascular: Regular Rate, Rhythm, No Edema, No Murmur Gastrointestinal: Normal Bowel Sounds, Non Tender, Soft Extremity: Normal Inspection, Non Tender, No Pedal Edema Neurologic/Psychiatric: Alert, Oriented x3, No Motor/Sensory Deficits, wood sawyer II- XII Norm as Tested, Other (Somnolent) Skin: normal color, warm/dry Focused Exam Lactate Level 06/12/21 18:25: Lactic Acid Level 1.10 Lactic Acid Level Progress/Results/Core Measures Suspected Sepsis SIRS Temperature: Pulse: 61 Respiratory Rate: 18 Laboratory Tests 06/12/21 18:25: White Blood Count 9.3 06/13/21 04:45: White Blood Count 8.4 Blood Pressure / Mean: 06/12/21 18:25: Lactic Acid Level 1.10 Laboratory Tests 06/12/21 18:25: Creatinine 2.09H, INR Comment 1.0, Platelet Count 255, Total Bilirubin 0.3 06/13/21 04:45: Creatinine 1.18, Platelet Count 231 Results/Orders Lab Results Laboratory Tests Test 06/12/21 18:25 06/12/21 20:45 06/12/21 21:45 06/13/21 04:45 Range/Units White Blood Count 9.3 8.4 4.3-11.0 10^3/uL Red Blood Count 3.23 L 3.44 L 3.80-5.11 10^6/uL Hemoglobin 9.1 L 9.7 L 11.5-16.0 g/dL Hematocrit 28 L 29 L 35-52 % Mean Corpuscular Volume 86 85 80-99 fL Mean Corpuscular Hemoglobin 28 28 25-34 pg Mean Corpuscular Hemoglobin Concent 33 33 32-36 g/dL Red Cell Distribution Width 15.3 H 15.4 H 10.0-14.5 % Platelet Count 255 231 130-400 10^3/uL Mean Platelet Volume 11.0 11.3 9.0-12.2 fL Immature Granulocyte % (Auto) 0 0 % Neutrophils (%) (Auto) 50 51 42-75 % Lymphocytes (%) (Auto) 39 39 12-44 % Monocytes (%) (Auto) 4 4 0-12 % Eosinophils (%) (Auto) 5 5 0-10 % Basophils (%) (Auto) 1 1 0-10 % Neutrophils # (Auto) 4.7 4.3 1.8-7.8 10^3/uL Lymphocytes # (Auto) 3.6 3.3 1.0-4.0 10^3/uL Monocytes # (Auto) 0.4 0.3 0.0-1.0 10^3/uL Eosinophils # (Auto) 0.5 H 0.4 H 0.0-0.3 10^3/uL Basophils # (Auto) 0.1 0.1 0.0-0.1 10^3/uL Immature Granulocyte # (Auto) 0.0 0.0 0.0-0.1 10^3/uL Prothrombin Time 14.0 12.2-14.7 SEC INR Comment 1.0 0.8-1.4 Activated Partial Thromboplast Time 23 L 24-35 SEC Sodium Level 135 135 135-145 MMOL/L Potassium Level 4.9 4.2 3.6-5.0 MMOL/L Chloride Level 109 H 109 H 98-107 MMOL/L Carbon Dioxide Level 15 L 18 L 21-32 MMOL/L Anion Gap 11 8 5-14 MMOL/L Blood Urea Nitrogen 30 H 24 H 7-18 MG/DL Creatinine 2.09 H 1.18 0.60-1.30 MG/DL Estimat Glomerular Filtration Rate 24 46 BUN/Creatinine Ratio 14 20 Glucose Level 219 H 292 H 70-105 MG/DL Lactic Acid Level 1.10 0.50-2.00 MMOL/L Calcium Level 8.0 L 8.3 L 8.5-10.1 MG/DL Corrected Calcium 8.8 8.5-10.1 MG/DL Magnesium Level 1.5 L 1.7 1.6-2.4 MG/DL Total Bilirubin 0.3 0.1-1.0 MG/DL Aspartate Amino Transf (AST/SGOT) 59 H 5-34 U/L Alanine Aminotransferase (ALT/SGPT) 71 H 0-55 U/L Alkaline Phosphatase 131 40-136 U/L C-Reactive Protein High Sensitivity 0.09 0.00-0.50 MG/DL Total Protein 6.0 L 6.4-8.2 GM/DL Albumin 3.0 L 3.2-4.5 GM/DL Procalcitonin 0.31 H <0.10 NG/ML Influenza Type A (RT-PCR) Not Detected Not Detecte Influenza Type B (RT-PCR) Not Detected Not Detecte SARS-CoV-2 RNA (RT-PCR) Not Detected Not Detecte Urine Color YELLOW Urine Clarity CLEAR Urine pH 5.5 5-9 Urine Specific [place] 1.025 H 1.016-1.022 Urine Protein 3+ H NEGATIVE Urine Glucose (UA) 3+ H NEGATIVE Urine Ketones NEGATIVE NEGATIVE Urine Nitrite NEGATIVE NEGATIVE Urine Bilirubin NEGATIVE NEGATIVE Urine Urobilinogen 0.2 < = 1.0 MG/DL Urine Leukocyte Esterase NEGATIVE NEGATIVE Urine RBC (Auto) NEGATIVE NEGATIVE Urine RBC NONE /HPF Urine WBC 0-2 /HPF Urine Squamous Epithelial Cells NONE /HPF Urine Crystals NONE /LPF Urine Bacteria TRACE /HPF Urine Casts PRESENT /LPF Urine Hyaline Casts 0-2 H /LPF Urine Mucus NEGATIVE /LPF Urine Culture Indicated NO Glucometer 212 H 70-110 MG/DL My Orders Orders - WARD MUNGUIA MD Cbc With Automated Diff (06/12/21 18:30) Comprehensive Metabolic Panel (06/12/21 18:30) Blood Culture (06/12/21 18:30) Sputum Culture (06/12/21 18:30) Urinalysis (06/12/21 18:30) Urine Culture (06/12/21 18:30) Protime With Inr (06/12/21 18:30) Partial Thromboplastin Time (06/12/21 18:30) Chest 1 View, Ap/Pa Only (06/12/21 18:30) Ed Iv/Invasive Line Start (06/12/21 18:30) Ed Iv/Invasive Line Start (06/12/21 18:30) Vital Signs Adult Sepsis Patie Q15M (06/12/21 18:30) O2 (06/12/21 18:30) Remove Rings In Anticipation O (06/12/21 18:30) Lactic Acid Analyzer (06/12/21 18:30) Lactated Ringers (Lr 1000 Ml Iv Solution (06/12/21 18:30) Procalcitonin (Pct) (06/12/21 18:30) Hs C Reactive Protein (06/12/21 18:30) Covid 19 Inhouse Test (06/12/21 18:30) Influenza A And B By Pcr (06/12/21 18:30) Ekg Tracing (06/12/21 18:43) Monitor-Rhythm Ecg Trace Only (06/12/21 18:43) Magnesium (06/12/21 21:14) Medications Given in ED Vital Signs/I&O 06/12/21 06/13/21 06/13/21 06/13/21 22:18 00:16 00:23 01:30 Temp 36.2 Pulse 68 69 70 Resp 20 17 B/P (MAP) 119/51 120/66 (84) Pulse Ox 95 95 97 O2 Delivery Room Air Room Air Room Air 06/13/21 04:04 Temp 36.0 Pulse 73 Resp 18 B/P (MAP) 126/75 (92) Pulse Ox 97 O2 Delivery Room Air 06/13/21 00:00 Intake Total 800 ml Balance 800 ml Capillary Refill : Less Than 3 Seconds Progress Note : Progress Note Patient was treated with 2 L of IV fluid which resuscitated her blood pressure. However, she was still too weak to get up out of the bed on her own and ambula te. Magnesium was noted to be low replacement was ordered. Patient needed admission due to inability to function at this moment. ECG Initial ECG Impression Date: Jun 12, 2021 Initial ECG Impression Time: 18:28 Initial ECG Rate: 58 Initial ECG Rhythm: Normal Sinus Comment Sinus rhythm with no ST elevation or depression. No abnormal intervals or axis deviation. Diagnostic Imaging Diagonstic Imaging: Xray Plain Films/CT/US/NM/MRI: chest Comments Chest x-ray viewed by me and report reviewed. See report below: NAME: VALENTE [facility]PER [facility] REC#: [id number] PT STATUS: REG ER : 1960 PHYSICIAN: WARD MUNGUIA MD ADMIT DATE: 06/12/21/ER Draft Date of Exam:06/12/21 CHEST 1 VIEW, AP/PA ONLY INDICATION: Weakness. Syncope. COMPARISON: 05/18/2021 FINDINGS: Single view of the chest demonstrates stable cardiac enlargement. The lungs are clear. There is no pneumothorax. There is a right IJ Port-A-Cath in stable position. IMPRESSION: Stable cardiac enlargement without pulmonary edema or acute infiltrate. Dictated on workstation # [id number] Dict: 06/12/211919 Trans: 06/12/211924 [facility] [id number] Interpreted by: TIA SAWYER Departure Communication (Admissions) Time/Spoke to Admitting Phy: 21:15 Dr. Thurman Impression Primary Impression: Acute kidney injury Additional Impressions: Hypovolemia Diarrhea Qualified Codes: R19.7 - Diarrhea, unspecified Hypomagnesemia Generalized weakness Hypotension Qualified Codes: I95.89 - Other hypotension; E86.1 - Hypovolemia Disposition: ADMITTED INPATIENT Condition: Improved Admissions Decision to Admit Reason: Admit from ER (General) Decision to Admit/Date: Jun 12, 2021 Time/Decision to Admit Time: 21:05 Departure-Patient Inst. Referrals: CINDY CALABRESE DO (PCP/Family) Primary Care Physician Copy Copies To 1: CINDY CALABRESE JOSHUA T MD Jun 12, 2021 19:21
--- NOTE | 2021-06-12 19:26 | Diagnostic Imaging Report ---
INDICATION: Weakness. Syncope. COMPARISON: 05/18/2021 FINDINGS: Single view of the chest demonstrates stable cardiac enlargement. The lungs are clear. There is no pneumothorax. There is a right IJ Port-A-Cath in stable position. IMPRESSION: Stable cardiac enlargement without pulmonary edema or acute infiltrate. Dictated by: Dictated on workstation # [id number]
[2021-06-12 20:51] LABS: BILIRUBIN,URINE NEGATIVE (NEGATIVE); CLARITY,URINE CLEAR; COLOR,URINE YELLOW; GLUCOSE, URINE (UA) 3+ (NEGATIVE); KETONES,URINE NEGATIVE (NEGATIVE); LEUKOCYTE ESTERASE ,URINE NEGATIVE (NEGATIVE); NITRITE,URINE NEGATIVE (NEGATIVE); PH,URINE 5.5 (5-9); PROTEIN,URINE 3+ (NEGATIVE)
[2021-06-12 20:59] LABS: BACTERIA,URINE TRACE /HPF; WBC,URINE 0-2 /HPF
[2021-06-12 21:00] LABS: HYALINE CASTS, URINE 0-2 /LPF
[2021-06-12] MEDS ORDERED: MAGNESIUM 1 GM/100 ML IVPB 100 ML IV ONE (23:30)
[2021-06-12] MEDS ORDERED: ONDANSETRON 4 MG/2 ML (SDV) Z0FRAN IVP PRN (23:30)
[2021-06-12] MEDS ORDERED: LACTATED RINGERS 1,000 ML IV SCH (23:30)
[2021-06-13 00:23] VITALS: BP 120/66
[2021-06-13] MEDS: MAGNESIUM 1 GM/100 ML IVPB 100 ML IV ONE ×2 (00:39→01:11)
[2021-06-13] MEDS ORDERED: LACTATED RINGERS 1,000 ML IV ONE (00:44)
[2021-06-13] MEDS ORDERED: ONDANSETRON 4 MG/2 ML (SDV) Z0FRAN IV PRN (01:00)
[2021-06-13] MEDS: LACTATED RINGERS 1,000 ML IV SCH ×3 (01:07→11:32)
[2021-06-13] MEDS: MAGNESIUM 1 GM/D5W 100 ML IVPB IV ONE ×2 (01:08→01:11)
[2021-06-13 04:04] VITALS: BP 126/75
[2021-06-13 04:51] LABS: BASOPHILS # (AUTO) 0.1 10^3/uL (0.0-0.1); BASOPHILS % (AUTO) 1 % (0-10); EOSINOPHILS # (AUTO) 0.4 10^3/uL (0.0-0.3); EOSINOPHILS % (AUTO) 5 % (0-10); HEMATOCRIT 29 % (35-52); HEMOGLOBIN 9.7 g/dL (11.5-16.0); LYMPHOCYTES # (AUTO) 3.3 10^3/uL (1.0-4.0); LYMPHOCYTES % (AUTO) 39 % (12-44); MEAN CORPUSCULAR HEMOGLOBIN 28 pg (25-34); MEAN CORPUSCULAR HGB CONC 33 g/dL (32-36); MEAN CORPUSCULAR VOLUME 85 fL (80-99); MEAN PLATELET VOLUME 11.3 fL (9.0-12.2); MONOCYTES # (AUTO) 0.3 10^3/uL (0.0-1.0); MONOCYTES % (AUTO) 4 % (0-12); NEUTROPHILS # (AUTO) 4.3 10^3/uL (1.8-7.8); NEUTROPHILS % (AUTO) 51 % (42-75); PLATELET COUNT 231 10^3/uL (130-400); WHITE BLOOD COUNT 8.4 10^3/uL (4.3-11.0)
[2021-06-13 05:03] LABS: POTASSIUM 4.2 MMOL/L (3.6-5.0)
[2021-06-13 05:04] LABS: CALCIUM 8.3 MG/DL (8.5-10.1)
[2021-06-13 05:09] LABS: CREATININE SERUM 1.18 MG/DL (0.60-1.30)
[2021-06-13] MEDS: inSUlin ASPART (NovoLOG) 1 UNIT/0.01 ML (CHARGE PER UNIT) SC SCH ×2 (06:39→10:02)
[2021-06-13 08:00] VITALS: BP 146/70
[2021-06-13] MEDS ORDERED: inSUlin ASPART (NovoLOG) 1 UNIT/0.01 ML (CHARGE PER UNIT) SC SCH (12:00)
--- NOTE | 2021-06-13 12:15 | Short Stay Summary ---
Discharge Summary Hospital Course Was the Problem List Reviewed?: Yes Problems/Dx: (1) Acute kidney injury Status: Acute Final Diagnosis: Acute kidney injury Hospital Course Date of Admission: Jun 12, 2021 at 22:01 Admission Diagnosis : Acute kidney injury Family Physician/Provider: Gerardo Calabrese DO Date of Discharge: 06/13/21 Discharge Diagnosis: Acute kidney injury Hospital Course: Itzel Urbano is a 61-year-old female with brittle diabetes who presented with dehydration and acute kidney injury. She had an uncomplicated course. She was treated with IV fluids and her kidney injury improved. She was discharged home in stable condition. She should follow-up with her primary care physician within a week. Labs and Pending Lab Test: Laboratory Tests 06/12/21 18:25: White Blood Count 9.3, Red Blood Count 3.23L, Hemoglobin 9.1L, Hematocrit 28L, Mean Corpuscular Volume 86, Mean Corpuscular Hemoglobin 28, Mean Corpuscular Hemoglobin Concent 33, Red Cell Distribution Width 15.3H, Platelet Count 255, Mean Platelet Volume 11.0, Immature Granulocyte % (Auto) 0, Neutrophils (%) (Auto) 50, Lymphocytes (%) (Auto) 39, Monocytes (%) (Auto) 4, Eosinophils (%) (Auto) 5, Basophils (%) (Auto) 1, Neutrophils # (Auto) 4.7, Lymphocytes # (Auto) 3.6, Monocytes # (Auto) 0.4, Eosinophils # (Auto) 0.5H, Basophils # (Auto) 0.1, Immature Granulocyte # (Auto) 0.0, Prothrombin Time 14.0, INR Comment 1.0, Activated Partial Thromboplast Time 23L, Sodium Level 135, Potassium Level 4.9, Chloride Level 109H, Carbon Dioxide Level 15L, Anion Gap 11, Blood Urea Nitrogen 30H, Creatinine 2.09H, Estimat Glomerular Filtration Rate 24, BUN/Creatinine Ratio 14, Glucose Level 219H, Lactic Acid Level 1.10, Calcium Level 8.0L, Corrected Calcium 8.8, Magnesium Level 1.5L, Total Bilirubin 0.3, Aspartate Amino Transf (AST/SGOT) 59H, Alanine Aminotransferase (ALT/SGPT) 71H, Alkaline Phosphatase 131, C-Reactive Protein High Sensitivity 0.09, Total Protein 6.0L, Albumin 3.0L, Procalcitonin 0.31H, Influenza Type A (RT-PCR) Not Detected, Influenza Type B (RT-PCR) Not Detected, SARS-CoV-2 RNA (RT-PCR) Not Detected 06/12/21 20:45: Urine Color YELLOW, Urine Clarity CLEAR, Urine pH 5.5, Urine Specific [place] 1.025H, Urine Protein 3+H, Urine Glucose (UA) 3+H, Urine Ketones NEGATIVE, Urine Nitrite NEGATIVE, Urine Bilirubin NEGATIVE, Urine Urobilinogen 0.2, Urine Leukocyte Esterase NEGATIVE, Urine RBC (Auto) NEGATIVE, Urine RBC NONE, Urine WBC 0-2, Urine Squamous Epithelial Cells NONE, Urine Crystals NONE, Urine Bacteria TRACE, Urine Casts PRESENT, Urine Hyaline Casts 0-2H, Urine Mucus NEGATIVE, Urine Culture Indicated NO 06/12/21 21:45: Glucometer 212H 06/13/21 04:45: White Blood Count 8.4, Red Blood Count 3.44L, Hemoglobin 9.7L, Hematocrit 29L, Mean Corpuscular Volume 85, Mean Corpuscular Hemoglobin 28, Mean Corpuscular Hemoglobin Concent 33, Red Cell Distribution Width 15.4H, Platelet Count 231, Mean Platelet Volume 11.3, Immature Granulocyte % (Auto) 0, Neutrophils (%) (Auto) 51, Lymphocytes (%) (Auto) 39, Monocytes (%) (Auto) 4, Eosinophils (%) (Auto) 5, Basophils (%) (Auto) 1, Neutrophils # (Auto) 4.3, Lymphocytes # (Auto) 3.3, Monocytes # (Auto) 0.3, Eosinophils # (Auto) 0.4H, Basophils # (Auto) 0.1, Immature Granulocyte # (Auto) 0.0, Sodium Level 135, Potassium Level 4.2, Chloride Level 109H, Carbon Dioxide Level 18L, Anion Gap 8, Blood Urea Nitrogen 24H, Creatinine 1.18, Estimat Glomerular Filtration Rate 46, BUN/Creatinine Ratio 20, Glucose Level 292H, Calcium Level 8.3L, Magnesium Level 1.7 06/13/21 11:18: Glucometer 223H Home Meds Active Reported Amlodipine Besylate 10 Mg Tablet 10 Mg PO DAILY Metoprolol Succinate 100 Mg Tab.er.24h 100 Mg PO DAILY Novolog Flexpen (Insulin Aspart) 300 Units/3 Ml Solution 5 Units SQ AC LAST FILLED 09-20-2020 #10 PENS Levemir (Insulin Determir) 1,000 Units/10 Ml Soln 15 Units SQ DAILY Aspirin EC (Aspirin) 81 Mg Tablet. 81 Mg PO DAILY Oxycodone HCl 15 Mg Tablet 15 Mg PO QID Pantoprazole Sodium 40 Mg Tablet. 40 Mg PO BIDAC Promethazine Tablet (Promethazine HCl) 25 Mg Tablet 25 Mg PO TID PRN Atorvastatin Calcium 20 Mg Tablet 20 Mg PO HS Gabapentin 800 Mg Tablet 800 Mg PO DAILY Gabapentin 800 Mg Tablet 1,600 Mg PO HS TAKES 2 (800MG) TABLETS Assessment/Pt Instructions Take medications as prescribed. Stay well-hydrated. Follow-up with your primary care physician. Return with worsening dizziness or if you feel like you are getting worse. Discharge Instructions Discharge Diet: ADA Diet Activity as Tolerated: Yes Discharge Physical Examination General Appearance: Alert, Oriented X3, Cooperative, No Acute Distress HEENT: Atraumatic, EOMI, Mucous Memb Moist/[place] Respiratory: Clear to Auscultation, Normal Air Movement Cardiovascular: Regular Rate, Normal S1, Normal S2, No Murmurs Abdominal: Normal Bowel Sounds, Soft, No Tenderness Extremities: No Edema, No Tenderness/Swelling Skin: No Rashes, No Significant Lesion Neuro: Normal Speech, Normal Tone Psych/Mental Status: Mental Status NL, Mood NL Allergies: Coded Allergies: ketorolac (Verified Allergy, Severe, ANAPHYLAXIS, PT TAKES ASA AT HOME, 03/06/19) scopolamine (Verified Allergy, Mild, Rash, 03/21/19) exenatide (Verified Allergy, Unknown, NAUSEA, 03/06/19) NON STOP VOMITING latex (Verified Allergy, Unknown, RASH, 03/06/19) metoclopramide (Verified Allergy, Unknown, RESTLESS LEGS, 03/06/19) erythromycin base (Verified Adverse Reaction, Unknown, 03/21/19) Copy Copies To 1: GERARDO CALABRESE DO Discharge Summary Date of Admission Jun 12, 2021 at 22:01 Date of Discharge Discharge Date: Jun 13, 2021 Discharge Time: 12:14 Admission Diagnosis Acute kidney injury Discharge Diagnosis (1) Acute kidney injury Status: Acute Clinical Quality Measures Smoking Cessation Counseling: Counseling-Symptomatic: 3-10 Minutes JUAN DAVID BRADSHAW MD Jun 13, 2021 12:14
[2021-06-13 12:40] VITALS: BP 146/70
== END 2021-06-13 12:41 | disposition home or self-care (01) ==
LOC: EDUNIT# 18:21 → ER 18:23 → 4TH 22:01
PROVIDERS: ADMIT Internal Medicine; ATTEND Internal Medicine
DX: N17.9 Acute kidney failure, unspecified (principal); E78.00 Pure hypercholesterolemia, unspecified; I25.10 Atherosclerotic heart disease of native coronary artery without angina pectoris; G43.909 Migraine, unspecified, not intractable, without status migrainosus; K21.9 Gastro-esophageal reflux disease without esophagitis; G89.29 Other chronic pain; M54.9 Dorsalgia, unspecified; F41.9 Anxiety disorder, unspecified; E86.1 Hypovolemia; R19.7 Diarrhea, unspecified; E83.42 Hypomagnesemia; I95.89 Other hypotension; E11.22 Type 2 diabetes mellitus with diabetic chronic kidney disease; I12.9 Hypertensive chronic kidney disease with stage 1 through stage 4 chronic kidney disease, or unspecified chronic kidney disease; E11.51 Type 2 diabetes mellitus with diabetic peripheral angiopathy without gangrene; N18.9 Chronic kidney disease, unspecified; F17.210 Nicotine dependence, cigarettes, uncomplicated; Z79.82 Long term (current) use of aspirin; Z79.899 Other long term (current) drug therapy; Z79.4 Long term (current) use of insulin
CPT/HCPCS: 71045; 80048; 80053; 81000; 82947 ×2; 83605; 83735 ×2; 84145; 85025 ×2; 85610; 85730; 86141; 87040; 87077; 87088; 87636; 93005; 93041; 99285; G0378; 36415

== ENCOUNTER 2021-07-07 16:28 | Emergency (ER) | payer MEDICARE ==
[~2021-07-07] VITALS: Ht 152 cm; Wt 61.0 kg
[2021-07-07] MEDS ORDERED: NS IV 1000 ML 1,000 ML IV SCH (16:45)
--- NOTE | 2021-07-07 16:56 | ED General ---
General Chief Complaint: Glucose Problems Stated Complaint: HIGH BLOOD SUGAR - OVER 600 Nursing Triage Note: Pt ambulatory to triage c/o high blood sugar x 2 days, reports has been high for the past 2 days, reports glucose over 600 at home. Pt c/o n/v since last night. Source of Information: Patient Exam Limitations: No Limitations History of Present Illness Date Seen by Provider: Jul 07, 2021 Time Seen by Provider: 16:55 Initial Comments To ER by private vehicle with reports of blood sugars too high to read for 2 days. Nausea vomiting since last night. Timing/Duration: 1-2 Days Severity: Moderate Associated Systoms: Nausea/Vomiting Allergies and Home Medications Allergies Coded Allergies: ketorolac (Verified Allergy, Severe, ANAPHYLAXIS, PT TAKES ASA AT HOME, 03/06/19) scopolamine (Verified Allergy, Mild, Rash, 03/21/19) exenatide (Verified Allergy, Unknown, NAUSEA, 03/06/19) NON STOP VOMITING latex (Verified Allergy, Unknown, RASH, 03/06/19) metoclopramide (Verified Allergy, Unknown, RESTLESS LEGS, 03/06/19) erythromycin base (Verified Adverse Reaction, Unknown, 03/21/19) Home Medications Amlodipine Besylate 10 Mg Tablet, 10 MG PO DAILY, (Reported) Aspirin 81 Mg Tablet.dr, 81 MG PO DAILY, (Reported) Atorvastatin Calcium 20 Mg Tablet, 20 MG PO HS, (Reported) Gabapentin 800 Mg Tablet, 1,600 MG PO HS, (Reported) TAKES 2 (800MG) TABLETS Gabapentin 800 Mg Tablet, 800 MG PO DAILY, (Reported) Insulin Aspart 300 Units/3 Ml Solution, 5 UNITS SQ AC, (Reported) LAST FILLED 09-20-2020 #10 PENS Insulin Determir 1,000 Units/10 Ml Soln, 15 UNITS SQ DAILY, (Reported) Metoprolol Succinate 100 Mg Tab.er.24h, 100 MG PO DAILY, (Reported) Oxycodone HCl 15 Mg Tablet, 15 MG PO QID, (Reported) Pantoprazole Sodium 40 Mg Tablet.dr, 40 MG PO BIDAC, (Reported) Promethazine HCl 25 Mg Tablet, 25 MG PO TID PRN for NAUSEA/VOMITING, (Reported) Patient Home Medication List Home Medication List Reviewed: Yes Review of Systems Review of Systems Constitutional: see HPI EENTM: see HPI Respiratory: no symptoms reported Cardiovascular: no symptoms reported Gastrointestinal: nausea, vomiting Genitourinary: no symptoms reported Musculoskeletal: no symptoms reported Skin: no symptoms reported Psychiatric/Neurological: No Symptoms Reported Past Bsezray-Qqsesg-Kumyhg Hx Patient Social History Tobacco Use?: Yes Tobacco type used: Cigarettes Smoking Status: Current Everyday Smoker Substance use?: No Alcohol Use?: No Pt feels they are or have been: No Immunizations Up To Date Tetanus Booster (TDap): Unknown PED Vaccines UTD: No First/Initial COVID19 Vaccinat: January 2021 Second COVID19 Vaccination Sharif: February 2021 COVID19 Vaccine Care Companion: Event [place] Seasonal Allergies Seasonal Allergies: Yes Past Medical History Surgery/Hospitalization HX: April 2021-DKA hospital admission Surgeries: Yes (EGD and colonoscopy) Cardiac, Coronary Stent, Ear Surgery, Gallbladder, Orthopedic, Renal Respiratory: Yes Chronic Bronchitis, Sleep Apnea Currently Using CPAP: No Currently Using BIPAP: No Cardiac: Yes (DVT'S IN ARMS; CARDIAC STENT X 1; CAROTID DISEASE;LINQ DEVICE;SEVERE PAD) Chronic Edema/Swelling, Coronary Artery Disease, Deep Vein Thrombosis, High Cholesterol, Hypertension, Palpitations, Peripheral Vascular Neurological: Yes (NEUROPATHY IN HANDS AND FEET) Headaches /Migraines, Neuropathy 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 Disorders: No 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 Disorders: 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 Sexually Transmitted Disease: No HIV/AIDS: No Genitourinary: Yes Bladder Infection, Kidney Stones, Renal Failure Gastrointestinal: Yes Gastroesophageal Reflux Musculoskeletal: Yes (CHRONIC GENERALIZED PAIN;CHRONIC BILAT SHOULDER PAIN;CHRONIC NECK PAIN ) Degenerate Disk Disease, Fibromyalgia, Chronic Back Pain Endocrine: Yes (NON-COMPLAINT;MULTIPLE EPISODES OF DKA-EASILY CONTROLLED ON INSULIN IN HOSP) Diabetes, Insulin dep HEENT: Yes (GLASSES; S/P BMT'S;BILAT CATARACT SURGERY 10/2020) Cataract, Chronic Ear Infection Loss of Vision: Bilateral Hearing Impairment: Hard of Hearing Cancer: No Psychosocial: Yes Anxiety Integumentary: Yes Psoriasis Blood Disorders: No Adverse Reaction/Blood Tranf: No Family Medical History Cancer of mouth 19 FATHER ( of esophogeal cancer.) Cardiovascular disease 19 MOTHER G8 BROTHER Completed stroke 19 FATHER G8 BROTHER Diabetes mellitus G8 BROTHER FH: lung cancer 19 MOTHER Hypertension 19 FATHER Kidney disease 19 FATHER Myocardial infarction 19 MOTHER G8 BROTHER Respiratory disorder No Family History of: AIDS Cancer, Diabetes, Hypertension SOCIAL HISTORY: -ETOH--RARELY USES -DRUGS--Rx NARCOTIC ABUSE -SMOKES 1 PPD PSH: -LINQ DEVICE PLACED 11/09/19 FOR REPORTED PALPITATIONS X 6 MONTHS, SINCE PERCOCET WAS DC'D -MULTIPLE CARDIAC CATHS--STENT X 1 TO LAD 07/13/15. LAST CATH 01/18/19--NO INTERVENTION -LUMBAR SPINE FUSION X 3--12/2002, 04/2007, AND 05/2007 -LUMBAR DISCECTOMY 10/2000--? LAMINECTOMY? -CERVICAL SPINE FUSION 11/2006 -CHOLECYSTECTOMY 1984 -BMT'S -LITHOTRIPSY AND RIGHT URETERAL STENT -EGD'S WITH ESOPHAGEAL DILATIONS -COLONOSCOPIES, LAST ONE 03/08/19 -PORT RIGHT CHEST -LEFT SHOULDER ROTATOR CUFF REPAIR 05/01/20--DR. PALACIOS -CONTINUOUS GLUCOSE MONITOR PRESENT 06/25/20--LLQ OF ABDOMEN--NOT PRESENT 10/2020 -BILATERAL CATARACT SURGERY 10/2020 -PERIPHERAL ANGIOGRAM 05/02/[address] FELIX: SEVERE BILATERAL SUPERFICIAL FEMORAL ARTERY DISEASE AND RECOMMENDED BILATERAL FEMORAL-POPLITEAL SURGERY--REFERRED TO DR. SAWYER AT [facility] HISTORY OF EXTREME NON-COMPLIANCE IN ALL ASPECTS OF CARE Physical Exam Vital Signs Vital Signs - First Documented 07/07/21 16:35 Temp 36.6 Pulse 85 Resp 18 B/P (MAP) 162/89 (113) Pulse Ox 98 O2 Delivery Room Air Capillary Refill : Less Than 3 Seconds Height, Weight, BMI Height: 5'1.00" Weight: 122lbs. 1.0oz. 55.375140ji; 26.00 BMI Method:Estimated General Appearance: No Apparent Distress, WD/WN, Chronically ill Eyes: Bilateral Eye Normal Inspection, Bilateral Eye PERRL, Bilateral Eye EOMI Neck: Full Range of Motion, Normal Inspection Respiratory: No Accessory Muscle Use, No Respiratory Distress Gastrointestinal: Normal Bowel Sounds, Non Tender, Soft Extremity: Normal Capillary Refill, Normal Inspection Neurologic/Psychiatric: Alert, Oriented x3 Skin: Normal Color, Warm/Dry Progress/Results/Core Measures Suspected Sepsis SIRS Temperature: Pulse: 85 Respiratory Rate: 18 Laboratory Tests 07/07/21 16:46: White Blood Count 9.4 Blood Pressure 162 /89 Mean: 113 Laboratory Tests 07/07/21 16:46: Creatinine 1.75H, Platelet Count 254, Total Bilirubin 0.4 Results/Orders Lab Results Laboratory Tests Test 07/07/21 16:46 07/07/21 17:50 07/07/21 17:58 07/07/21 18:28 Range/Units White Blood Count 9.4 4.3-11.0 10^3/uL Red Blood Count 3.61 L 3.80-5.11 10^6/uL Hemoglobin 10.3 L 11.5-16.0 g/dL Hematocrit 32 L 35-52 % Mean Corpuscular Volume 88 80-99 fL Mean Corpuscular Hemoglobin 29 25-34 pg Mean Corpuscular Hemoglobin Concent 33 32-36 g/dL Red Cell Distribution Width 15.0 H 10.0-14.5 % Platelet Count 254 130-400 10^3/uL Mean Platelet Volume 11.2 9.0-12.2 fL Immature Granulocyte % (Auto) 0 % Neutrophils (%) (Auto) 76 H 42-75 % Lymphocytes (%) (Auto) 20 12-44 % Monocytes (%) (Auto) 3 0-12 % Eosinophils (%) (Auto) 0 0-10 % Basophils (%) (Auto) 1 0-10 % Neutrophils # (Auto) 7.1 1.8-7.8 10^3/uL Lymphocytes # (Auto) 1.8 1.0-4.0 10^3/uL Monocytes # (Auto) 0.3 0.0-1.0 10^3/uL Eosinophils # (Auto) 0.0 0.0-0.3 10^3/uL Basophils # (Auto) 0.1 0.0-0.1 10^3/uL Immature Granulocyte # (Auto) 0.0 0.0-0.1 10^3/uL Sodium Level 132 L 135-145 MMOL/L Potassium Level 4.4 3.6-5.0 MMOL/L Chloride Level 100 98-107 MMOL/L Carbon Dioxide Level 18 L 21-32 MMOL/L Anion Gap 14 5-14 MMOL/L Blood Urea Nitrogen 26 H 7-18 MG/DL Creatinine 1.75 H 0.60-1.30 MG/DL Estimat Glomerular Filtration Rate 29 BUN/Creatinine Ratio 15 Glucose Level 815 *H 70-105 MG/DL Calcium Level 9.0 8.5-10.1 MG/DL Corrected Calcium 9.5 8.5-10.1 MG/DL Magnesium Level 1.8 1.6-2.4 MG/DL Total Bilirubin 0.4 0.1-1.0 MG/DL Aspartate Amino Transf (AST/SGOT) 11 5-34 U/L Alanine Aminotransferase (ALT/SGPT) 15 0-55 U/L Alkaline Phosphatase 126 40-136 U/L C-Reactive Protein High Sensitivity 0.12 0.00-0.50 MG/DL Total Protein 6.9 6.4-8.2 GM/DL Albumin 3.4 3.2-4.5 GM/DL Beta-Hydroxybutyrate (Chem panel) 1.06 H 0.00-0.27 MMOL/L Blood Gas Puncture Site R RAD Blood Gas Patient Temperature 36.6 Arterial Blood pH 7.51 H 7.37-7.43 Arterial Blood Partial Pressure CO2 18 *L 35-45 MMHG Arterial Blood Partial Pressure O2 147 H 79-93 MMHG Arterial Blood HCO3 14 *L 23-27 MMOL/L Arterial Blood Total CO2 14.4 L 21.0-31.0 MMOL/L Arterial Blood Oxygen Saturation 97 94-100 % Arterial Blood Base Excess -8.8 L -2.5-2.5 MMOL/L Antonio Test NA Blood Gas Ventilator Setting NA Blood Gas Inspired Oxygen UNKNOWN Urine Color YELLOW Urine Clarity CLEAR Urine pH 7.0 5-9 Urine Specific [place] 1.015 L 1.016-1.022 Urine Protein 2+ H NEGATIVE Urine Glucose (UA) 3+ H NEGATIVE Urine Ketones NEGATIVE NEGATIVE Urine Nitrite NEGATIVE NEGATIVE Urine Bilirubin NEGATIVE NEGATIVE Urine Urobilinogen 0.2 < = 1.0 MG/DL Urine Leukocyte Esterase NEGATIVE NEGATIVE Urine RBC (Auto) TRACE-I NEGATIVE Urine RBC 0-2 /HPF Urine WBC 0-2 /HPF Urine Crystals NONE /LPF Urine Bacteria TRACE /HPF Urine Casts NONE /LPF Urine Mucus NEGATIVE /LPF Urine Yeast FEW H /HPF Urine Culture Indicated NO Glucometer 519 *H 70-110 MG/DL My Orders Orders - JR MARIE APRN Diphenhydramine Injection (Benadryl Inje (07/07/21 17:00) Beta Hydroxybutyrate (07/07/21 16:52) Insulin (Regular) Human (Novolin R (Per (07/07/21 17:30) Lactated Ringers (Lr 1000 Ml Iv Solution (07/07/21 17:30) Arterial Blood Gas (07/07/21 17:38) Promethazine Injection (Phenergan Injec (07/07/21 18:30) Insulin Determir (Per Unit) (Levemir (Pe (07/07/21 18:30) Insulin (Regular) Human (Novolin R (Per (07/07/21 18:30) Medications Given in ED Current Medications Medications Dose Ordered Sig/Jackie Route Start Time Stop Time Status Last Admin Dose Admin Diphenhydramine HCl 25 mg ONCE ONCE IVP 07/07/21 17:00 07/07/21 17:01 DC 07/07/21 17:01 25 MG Insulin Detemir 20 unit ONCE ONCE SQ 07/07/21 18:30 07/07/21 18:31 DC 07/07/21 18:41 20 UNIT Insulin Human Regular 5 unit ONCE ONCE IV 07/07/21 18:30 07/07/21 18:31 DC 07/07/21 18:38 5 UNIT Insulin Human Regular 10 unit ONCE ONCE IV 07/07/21 17:30 07/07/21 17:31 DC 07/07/21 17:30 10 UNIT Promethazine HCl 25 mg ONCE ONCE IVP 07/07/21 18:30 07/07/21 18:31 DC 07/07/21 18:26 25 MG Vital Signs/I&O 07/07/21 16:35 Temp 36.6 Pulse 85 Resp 18 B/P (MAP) 162/89 (113) Pulse Ox 98 O2 Delivery Room Air Capillary Refill : Less Than 3 Seconds Blood Pressure Mean: 113 Departure Impression Primary Impression: Uncontrolled insulin dependent diabetes mellitus Additional Impression: Medical non-compliance Disposition: 01 HOME, SELF-CARE Condition: Improved Departure-Patient Inst. 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
[2021-07-07 16:58] LABS: BASOPHILS # (AUTO) 0.1 10^3/uL (0.0-0.1); BASOPHILS % (AUTO) 1 % (0-10); EOSINOPHILS % (AUTO) 0 % (0-10); HEMATOCRIT 32 % (35-52); HEMOGLOBIN 10.3 g/dL (11.5-16.0); LYMPHOCYTES # (AUTO) 1.8 10^3/uL (1.0-4.0); LYMPHOCYTES % (AUTO) 20 % (12-44); MEAN CORPUSCULAR HEMOGLOBIN 29 pg (25-34); MEAN CORPUSCULAR HGB CONC 33 g/dL (32-36); MEAN CORPUSCULAR VOLUME 88 fL (80-99); MEAN PLATELET VOLUME 11.2 fL (9.0-12.2); MONOCYTES # (AUTO) 0.3 10^3/uL (0.0-1.0); MONOCYTES % (AUTO) 3 % (0-12); NEUTROPHILS # (AUTO) 7.1 10^3/uL (1.8-7.8); NEUTROPHILS % (AUTO) 76 % (42-75); PLATELET COUNT 254 10^3/uL (130-400); WHITE BLOOD COUNT 9.4 10^3/uL (4.3-11.0)
[2021-07-07] MEDS ORDERED: diphenhydrAMINE 50 MG/ML INJ (BENADRYL) IVP ONE (17:00)
[2021-07-07 17:21] LABS: ALBUMIN 3.4 GM/DL (3.2-4.5); POTASSIUM 4.4 MMOL/L (3.6-5.0)
[2021-07-07 17:23] LABS: TOTAL PROTEIN 6.9 GM/DL (6.4-8.2)
[2021-07-07 17:25] LABS: BILIRUBIN,TOTAL 0.4 MG/DL (0.1-1.0)
[2021-07-07 17:27] LABS: CREATININE SERUM 1.75 MG/DL (0.60-1.30)
[2021-07-07 17:30] LABS: MAGNESIUM 1.8 MG/DL (1.6-2.4)
[2021-07-07] MEDS ORDERED: inSUlin (REGULAR) HUMAN 1 UNIT/0.01 ML (CHARGE PER UNIT) IV ONE ×2 (17:30→18:30)
[2021-07-07] MEDS ORDERED: LACTATED RINGERS 1,000 ML IV SCH (17:30)
[2021-07-07 18:00] LABS: ABG BASE EXCESS -8.8 MMOL/L (-2.5-2.5); ABG OXYGEN SATURATION 97 % (94-100); ABG PH 7.51 (7.37-7.43); ABG PO2 147 MMHG (79-93); ABG TCO2 14.4 MMOL/L (21.0-31.0)
[2021-07-07 18:04] LABS: PATIENT TEMP 36.6
[2021-07-07 18:05] LABS: ABG PCO2 18 MMHG (35-45)
[2021-07-07 18:05] LABS: BILIRUBIN,URINE NEGATIVE (NEGATIVE); CLARITY,URINE CLEAR; COLOR,URINE YELLOW; GLUCOSE, URINE (UA) 3+ (NEGATIVE); KETONES,URINE NEGATIVE (NEGATIVE); LEUKOCYTE ESTERASE ,URINE NEGATIVE (NEGATIVE); NITRITE,URINE NEGATIVE (NEGATIVE); PROTEIN,URINE 2+ (NEGATIVE)
[2021-07-07 18:24] LABS: BACTERIA,URINE TRACE /HPF; RBC,URINE 0-2 /HPF; WBC,URINE 0-2 /HPF; YEAST,URINE FEW /HPF
[2021-07-07] MEDS ORDERED: PROMETHAZINE INJ 25 MG/ML (PHENERGAN) AMP IVP ONE (18:30)
[2021-07-07 19:56] VITALS: BP 152/78
== END 2021-07-07 19:57 | disposition home or self-care (01) ==
LOC: EDUNIT# 16:28 → ER 16:29
DX: E11.65 Type 2 diabetes mellitus with hyperglycemia (principal); I10 Essential (primary) hypertension; I25.10 Atherosclerotic heart disease of native coronary artery without angina pectoris; E11.40 Type 2 diabetes mellitus with diabetic neuropathy, unspecified; E78.00 Pure hypercholesterolemia, unspecified; G43.909 Migraine, unspecified, not intractable, without status migrainosus; K21.9 Gastro-esophageal reflux disease without esophagitis; G89.29 Other chronic pain; M54.2 Cervicalgia; M25.511 Pain in right shoulder; M25.512 Pain in left shoulder; M79.7 Fibromyalgia; F41.9 Anxiety disorder, unspecified; F17.210 Nicotine dependence, cigarettes, uncomplicated; Z91.19 Patient's noncompliance with other medical treatment and regimen; Z79.82 Long term (current) use of aspirin; Z79.4 Long term (current) use of insulin; Z79.891 Long term (current) use of opiate analgesic; Z95.5 Presence of coronary angioplasty implant and graft; Z79.899 Other long term (current) drug therapy
CPT/HCPCS: 36415; 80053; 81000; 82010; 82805; 82947; 83735; 85025; 86141; 99291

== ENCOUNTER 2021-07-13 20:42 | Observation (INO) | payer MEDICARE ==
[~2021-07-13] VITALS: Ht 152 cm; Wt 58.0 kg
[2021-07-13] MEDS ORDERED: NS IV 1000 ML 1,000 ML IV SCH ×2 (21:00→21:45)
[2021-07-13 21:03] LABS: BASOPHILS # (AUTO) 0.1 10^3/uL (0.0-0.1); BASOPHILS % (AUTO) 1 % (0-10); EOSINOPHILS # (AUTO) 0.2 10^3/uL (0.0-0.3); EOSINOPHILS % (AUTO) 2 % (0-10); HEMATOCRIT 33 % (35-52); HEMOGLOBIN 11.2 g/dL (11.5-16.0); LYMPHOCYTES # (AUTO) 2.8 10^3/uL (1.0-4.0); LYMPHOCYTES % (AUTO) 26 % (12-44); MEAN CORPUSCULAR HEMOGLOBIN 28 pg (25-34); MEAN CORPUSCULAR HGB CONC 34 g/dL (32-36); MEAN CORPUSCULAR VOLUME 84 fL (80-99); MEAN PLATELET VOLUME 11.2 fL (9.0-12.2); MONOCYTES # (AUTO) 0.4 10^3/uL (0.0-1.0); MONOCYTES % (AUTO) 4 % (0-12); NEUTROPHILS % (AUTO) 66 % (42-75); PLATELET COUNT 291 10^3/uL (130-400); WHITE BLOOD COUNT 10.6 10^3/uL (4.3-11.0)
[2021-07-13 21:30] LABS: ALBUMIN 3.5 GM/DL (3.2-4.5); BILIRUBIN,TOTAL 0.5 MG/DL (0.1-1.0); CALCIUM 8.6 MG/DL (8.5-10.1); POTASSIUM 4.6 MMOL/L (3.6-5.0); TOTAL PROTEIN 6.8 GM/DL (6.4-8.2)
--- NOTE | 2021-07-13 21:34 | ED General ---
General Chief Complaint: Glucose Problems Stated Complaint: HYPERGLYCEMIA Nursing Triage Note: TO ED VIA [facility] TO ROOM 4. PER EMS BLOOD SUGAR METER READ "HIGH". Source of Information: Patient, EMS, Old Records History of Present Illness Date Seen by Provider: Jul 13, 2021 Time Seen by Provider: 20:45 Initial Comments PT ARRIVES VIA EMS FROM HOME C/O ELEVATED BLOOD SUGAR STATES GLUCOMETER HAS READ "HIGH" EVERY TIME SHE HAS CHECKED HER BLOOD SUGAR FOR THE LAST FEW DAYS, AND IS NO DIFFERENT TODAY PT WITH LONG HISTORY OF SAME, WITH A MULTITUDE OF VISITS FOR DKA CLAIMS SHE TOOK 10 UNITS OF "LONG ACTING" ( DOES NOT KNOW NAME OF MEDICATION ) AT 0900, 10 UNITS OF NOVOLOG AT 1400 AND 20 UNITS OF NOVOLOG AT 1600 C/O CHRONIC BILATERAL LEG PAIN, WORSE TODAY. HAS BEEN DX WITH PAD. STATES SHE HAS NOT TAKEN ANYTHING FOR PAIN C/O NAUSEA, CHRONIC PROBLEM HAS NOT TAKEN ANYTHING FOR NAUSEA PT WANTING PHENERGAN AND BENADRYL VIA RAPID IV PUSH ON ARRIVAL, IS HER NORMAL REQUEST EVERY TIME SHE COMES TO ER. NO FEVER NO COUGH NO SHORTNESS OF BREATH NO LOSS OF TASTE /SMELL SEE OLD CHARTS FOR DETAILS. THIS IS PT'S 3RD VISIT IN JUNE PCP; DR. CALABRESE Allergies and Home Medications Allergies Coded Allergies: ketorolac (Verified Allergy, Severe, ANAPHYLAXIS, PT TAKES ASA AT HOME, 03/06/19) scopolamine (Verified Allergy, Mild, Rash, 03/21/19) exenatide (Verified Allergy, Unknown, NAUSEA, 03/06/19) NON STOP VOMITING latex (Verified Allergy, Unknown, RASH, 03/06/19) metoclopramide (Verified Allergy, Unknown, RESTLESS LEGS, 03/06/19) erythromycin base (Verified Adverse Reaction, Unknown, 03/21/19) Home Medications Amlodipine Besylate 10 Mg Tablet, 10 MG PO DAILY, (Reported) Aspirin 81 Mg Tablet., 81 MG PO DAILY, (Reported) Atorvastatin Calcium 20 Mg Tablet, 20 MG PO HS, (Reported) Gabapentin 800 Mg Tablet, 1,600 MG PO HS, (Reported) TAKES 2 (800MG) TABLETS Gabapentin 800 Mg Tablet, 800 MG PO DAILY, (Reported) Insulin Aspart 300 Units/3 Ml Solution, 5 UNITS SQ AC, (Reported) LAST FILLED 09-20-2020 #10 PENS Insulin Determir 1,000 Units/10 Ml Soln, 15 UNITS SQ DAILY, (Reported) Metoprolol Succinate 100 Mg Tab.er.24h, 100 MG PO DAILY, (Reported) Oxycodone HCl 15 Mg Tablet, 15 MG PO QID, (Reported) Pantoprazole Sodium 40 Mg Tablet.dr, 40 MG PO BIDAC, (Reported) Promethazine HCl 25 Mg Tablet, 25 MG PO TID PRN for NAUSEA/VOMITING, (Reported) Review of Systems Review of Systems Constitutional: no symptoms reported Respiratory: no symptoms reported Cardiovascular: no symptoms reported Gastrointestinal: nausea Genitourinary: no symptoms reported Musculoskeletal: other (LEG PAIN ) Psychiatric/Neurological: No Symptoms Reported Past Drkicog-Wnprcu-Rlnbjs Hx Immunizations Up To Date Tetanus Booster (TDap): Unknown PED Vaccines UTD: No Seasonal Allergies Seasonal Allergies: Yes Past Medical History Surgery/Hospitalization HX: PORT RIGHT CHEST April 2021-DKA hospital admission Surgeries: Yes (EGD and colonoscopy) Cardiac, Coronary Stent, Ear Surgery, Gallbladder, Orthopedic, Renal Respiratory: Yes Chronic Bronchitis, Sleep Apnea Currently Using CPAP: No Currently Using BIPAP: No Cardiac: Yes (DVT'S IN ARMS; CARDIAC STENT X 1; CAROTID DISEASE;LINQ DEVICE;SEVERE PAD) Chronic Edema/Swelling, Coronary Artery Disease, Deep Vein Thrombosis, High Cholesterol, Hypertension, Palpitations, Peripheral Vascular Neurological: Yes (NEUROPATHY IN HANDS AND FEET) Headaches /Migraines, Neuropathy 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 Disorders: No 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 Sexually Transmitted Disease: No HIV/AIDS: No Genitourinary: Yes Bladder Infection, Kidney Stones, Renal Failure Gastrointestinal: Yes Gastroesophageal Reflux Musculoskeletal: Yes (CHRONIC GENERALIZED PAIN;CHRONIC BILAT SHOULDER PAIN;CHRONIC NECK PAIN ) Degenerate Disk Disease, Fibromyalgia, Chronic Back Pain Endocrine: Yes (NON-COMPLAINT;MULTIPLE EPISODES OF DKA-EASILY CONTROLLED ON INSULIN IN HOSP) Diabetes, Insulin dep HEENT: Yes (GLASSES; S/P BMT'S;BILAT CATARACT SURGERY 10/2020) Cataract, Chronic Ear Infection Loss of Vision: Bilateral Hearing Impairment: Hard of Hearing Cancer: No Psychosocial: Yes Anxiety Integumentary: Yes Psoriasis Blood Disorders: No Adverse Reaction/Blood Tranf: No Family Medical History Cancer of mouth 19 FATHER ( of esophogeal cancer.) Cardiovascular disease 19 MOTHER G8 BROTHER Completed stroke 19 FATHER G8 BROTHER Diabetes mellitus G8 BROTHER FH: lung cancer 19 MOTHER Hypertension 19 FATHER Kidney disease 19 FATHER Myocardial infarction 19 MOTHER G8 BROTHER Respiratory disorder No Family History of: AIDS Cancer, Diabetes, Hypertension SOCIAL HISTORY: -ETOH--RARELY USES -DRUGS--Rx NARCOTIC ABUSE -SMOKES 1 PPD PSH: -LINQ DEVICE PLACED 11/09/19 FOR REPORTED PALPITATIONS X 6 MONTHS, SINCE PERCOCET WAS DC'D -MULTIPLE CARDIAC CATHS--STENT X 1 TO LAD 07/13/15. LAST CATH 01/18/19--NO INTERVENTION -LUMBAR SPINE FUSION X 3--12/2002, 04/2007, AND 05/2007 -LUMBAR DISCECTOMY 10/2000--? LAMINECTOMY? -CERVICAL SPINE FUSION 11/2006 -CHOLECYSTECTOMY 1983 -BMT'S -LITHOTRIPSY AND RIGHT URETERAL STENT -EGD'S WITH ESOPHAGEAL DILATIONS -COLONOSCOPIES, LAST ONE 03/08/19 -PORT RIGHT CHEST -LEFT SHOULDER ROTATOR CUFF REPAIR 05/01/20--DR. PALACIOS -CONTINUOUS GLUCOSE MONITOR PRESENT 06/25/20--LLQ OF ABDOMEN--NOT PRESENT 10/2020 -BILATERAL CATARACT SURGERY 10/2020 -PERIPHERAL ANGIOGRAM 05/02/[address] FELIX: SEVERE BILATERAL SUPERFICIAL FEMORAL ARTERY DISEASE AND RECOMMENDED BILATERAL FEMORAL-POPLITEAL SURGERY--REFERRED TO DR. SAWYER AT [facility] HISTORY OF EXTREME NON-COMPLIANCE IN ALL ASPECTS OF CARE Physical Exam Vital Signs Vital Signs - First Documented 07/13/21 20:43 Temp 37.0 Pulse 75 Resp 16 B/P (MAP) 156/67 (96) O2 Delivery Room Air Capillary Refill : Less Than 3 Seconds Height, Weight, BMI Height: 5'1.00" Weight: 122lbs. 1.0oz. 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 Norm as Tested Skin: Normal Color, Warm/Dry Progress/Results/Core Measures Suspected Sepsis SIRS Temperature: Pulse: 75 Respiratory Rate: 16 Laboratory Tests 07/13/21 20:54: White Blood Count 10.6 Blood Pressure 156 /67 Mean: 96 Laboratory Tests 07/13/21 20:54: Creatinine 2.00H, Platelet Count 291, Total Bilirubin 0.5 Results/Orders Lab Results Laboratory Tests Test 07/13/21 20:54 07/13/21 21:43 Range/Units White Blood Count 10.6 4.3-11.0 10^3/uL Red Blood Count 3.94 3.80-5.11 10^6/uL Hemoglobin 11.2 L 11.5-16.0 g/dL Hematocrit 33 L 35-52 % Mean Corpuscular Volume 84 80-99 fL Mean Corpuscular Hemoglobin 28 25-34 pg Mean Corpuscular Hemoglobin Concent 34 32-36 g/dL Red Cell Distribution Width 14.6 H 10.0-14.5 % Platelet Count 291 130-400 10^3/uL Mean Platelet Volume 11.2 9.0-12.2 fL Immature Granulocyte % (Auto) 0 % Neutrophils (%) (Auto) 66 42-75 % Lymphocytes (%) (Auto) 26 12-44 % Monocytes (%) (Auto) 4 0-12 % Eosinophils (%) (Auto) 2 0-10 % Basophils (%) (Auto) 1 0-10 % Neutrophils # (Auto) 7.0 1.8-7.8 10^3/uL Lymphocytes # (Auto) 2.8 1.0-4.0 10^3/uL Monocytes # (Auto) 0.4 0.0-1.0 10^3/uL Eosinophils # (Auto) 0.2 0.0-0.3 10^3/uL Basophils # (Auto) 0.1 0.0-0.1 10^3/uL Immature Granulocyte # (Auto) 0.0 0.0-0.1 10^3/uL Sodium Level 125 *L 135-145 MMOL/L Potassium Level 4.6 3.6-5.0 MMOL/L Chloride Level 95 L 98-107 MMOL/L Carbon Dioxide Level 18 L 21-32 MMOL/L Anion Gap 12 5-14 MMOL/L Blood Urea Nitrogen 26 H 7-18 MG/DL Creatinine 2.00 H 0.60-1.30 MG/DL Estimat Glomerular Filtration Rate 25 BUN/Creatinine Ratio 13 Glucose Level 891 *H 70-105 MG/DL Calcium Level 8.6 8.5-10.1 MG/DL Corrected Calcium 9.0 8.5-10.1 MG/DL Magnesium Level 2.0 1.6-2.4 MG/DL Total Bilirubin 0.5 0.1-1.0 MG/DL Aspartate Amino Transf (AST/SGOT) 10 5-34 U/L Alanine Aminotransferase (ALT/SGPT) 12 0-55 U/L Alkaline Phosphatase 135 40-136 U/L Total Protein 6.8 6.4-8.2 GM/DL Albumin 3.5 3.2-4.5 GM/DL Amylase Level 87 25-125 U/L Lipase 25 8-78 U/L Blood Gas Puncture Site RGHT RAD Blood Gas Patient Temperature 37 Arterial Blood pH 7.33 *L 7.37-7.43 Arterial Blood Partial Pressure CO2 37 35-45 MMHG Arterial Blood Partial Pressure O2 96 H 79-93 MMHG Arterial Blood HCO3 19 L 23-27 MMOL/L Arterial Blood Total CO2 19.7 L 21.0-31.0 MMOL/L Arterial Blood Oxygen Saturation 99 94-100 % Arterial Blood Base Excess -6.3 L -2.5-2.5 MMOL/L Antonio Test POS Blood Gas Ventilator Setting NO Blood Gas Inspired Oxygen ROOM AIR My Orders Orders - PURA PIÑA DO Ed Iv/Invasive Line Start (07/13/21 20:46) Monitor-Rhythm Ecg Trace Only (07/13/21 20:46) Amylase (07/13/21 20:46) Cbc With Automated Diff (07/13/21 20:46) Comprehensive Metabolic Panel (07/13/21 20:46) Drug Screen Stat (Urine) (07/13/21 20:46) Lipase (07/13/21 20:46) Magnesium (07/13/21 20:46) Ua Culture If Indicated (07/13/21 20:46) Ed Iv/Invasive Line Start (07/13/21 20:46) Ns Iv 1000 Ml (Sodium Chloride 0.9%) (07/13/21 21:00) Accucheck Stat ONCE (07/13/21 20:46) Arterial Blood Gas (07/13/21 21:34) Ed Iv/Invasive Line Start (07/13/21 21:34) Ns Iv 1000 Ml (Sodium Chloride 0.9%) (07/13/21 21:45) Insulin (Regular) Human (Novolin R (Per (07/13/21 21:45) Promethazine Injection (Phenergan Injec (07/13/21 22:00) Diphenhydramine Injection (Benadryl Inje (07/13/21 22:00) Medications Given in ED Current Medications Medications Dose Ordered Sig/Jackie Route Start Time Stop Time Status Last Admin Dose Admin Insulin Human Regular 20 unit ONCE ONCE IV 07/13/21 21:45 07/13/21 21:46 DC 07/13/21 22:02 20 UNIT Vital Signs/I&O 07/13/21 20:43 Temp 37.0 Pulse 75 Resp 16 B/P (MAP) 156/67 (96) O2 Delivery Room Air Capillary Refill : Less Than 3 Seconds Blood Pressure Mean: 96 Point of Care Testing Blood Glucose Action Taken: [place] ERP NOTIFIED Progress Note : Progress Note PT GIVEN IV FLUIDS AND INSULIN REPEAT ACCUCHECK STILL READS "HIGH" PT REPEATEDLY WANTING PHENERGAN AND BENADRYL, AND WANTS IT GIVEN FAST IV PUSH--PT WAS GIVEN PHENERGAN AND BENADRYL IN IV FLUIDS-PT STATES "IT DIDN'T HELP--IT NEVER HELPS LIKE THAT" --ADVISED HER SHE WOULD NOT BE GETTING THOSE MEDICATIONS BY RAPID IV PUSH PT THEN WANTING PAIN MEDICATION FOR HER CHRONIC LEG PAIN --TYLENOL AND ULTRAM ORDERED. Departure Communication (Admissions) [id number]--SPOKE WITH DR. BRADSHAW, HOSPITALIST, ACCEPTS PT FOR ADMIT. ORDERS NOTED. Impression Primary Impression: Uncontrolled type 2 diabetes mellitus with hyperosmolar nonketotic hyperglycemia Additional Impressions: Acute kidney injury superimposed on chronic kidney disease Hyponatremia Dehydration with Acute Renal Failure Nausea and vomiting Uncontrolled insulin dependent diabetes mellitus Disposition: ADMITTED INPATIENT Condition: Stable Admissions Decision to Admit Reason: Admit from ER (General) Decision to Admit/Date: Jul 13, 2021 Time/Decision to Admit Time: 21:55 Departure-Patient Inst. Referrals: CINDY CALABRESE DO (PCP/Family) Primary Care Physician PURA PIÑA DO Jul 13, 2021 21:34
[2021-07-13] MEDS ORDERED: inSUlin (REGULAR) HUMAN 1 UNIT/0.01 ML (CHARGE PER UNIT) IV ONE (21:45)
[2021-07-13 21:51] LABS: ABG BASE EXCESS -6.3 MMOL/L (-2.5-2.5); ABG OXYGEN SATURATION 99 % (94-100); ABG PCO2 37 MMHG (35-45); ABG PO2 96 MMHG (79-93); ABG TCO2 19.7 MMOL/L (21.0-31.0)
[2021-07-13 21:55] LABS: ABG PH 7.33 (7.37-7.43); ALLENS TEST POS
[2021-07-13 21:56] LABS: INSPIRED O2 ROOM AIR; PATIENT TEMP 37; VENTILATOR NO
[2021-07-13] MEDS ORDERED: diphenhydrAMINE 50 MG/ML INJ (BENADRYL) IVP ONE (22:00)
[2021-07-13] MEDS ORDERED: PROMETHAZINE INJ 25 MG/ML (PHENERGAN) AMP IVP ONE (22:00)
[2021-07-13 23:13] LABS: BILIRUBIN,URINE NEGATIVE (NEGATIVE); CLARITY,URINE CLEAR; COLOR,URINE YELLOW; GLUCOSE, URINE (UA) 3+ (NEGATIVE); KETONES,URINE NEGATIVE (NEGATIVE); LEUKOCYTE ESTERASE ,URINE NEGATIVE (NEGATIVE); NITRITE,URINE NEGATIVE (NEGATIVE); PH,URINE 6.5 (5-9); PROTEIN,URINE 2+ (NEGATIVE)
[2021-07-13 23:21] LABS: BACTERIA,URINE TRACE /HPF; RBC,URINE RARE /HPF
[2021-07-13 23:28] LABS: AMPHETAMINE SCREEN, URINE NEGATIVE (NEGATIVE); BARBITURATE SCREEN URINE NEGATIVE (NEGATIVE); BENZODIAZEPINES SCREEN URINE NEGATIVE (NEGATIVE); CANNABINOID SCREEN, URINE NEGATIVE (NEGATIVE); COCAINE SCREEN URINE NEGATIVE (NEGATIVE); METHADONE STAT NEGATIVE (NEGATIVE); METHAMPHETAMINE SCREEN URINE S NEGATIVE (NEGATIVE); OPIATE SCREEN URINE NEGATIVE (NEGATIVE); OXYCODONE STAT NEGATIVE (NEGATIVE); PROPOXYPHENE STAT NEGATIVE (NEGATIVE); TRICYCLIC ANTIDEPRESSANTS SCRE NEGATIVE (NEGATIVE)
[2021-07-14] MEDS ORDERED: ACETAMINOPHEN 500 MG TAB (TYLENOL) PO PRN (00:15)
[2021-07-14] MEDS: NS IV 1000 ML 1,000 ML IV SCH ×5 (00:39→19:06)
[2021-07-14] MEDS ORDERED: ONDANSETRON 4 MG/2 ML (SDV) Z0FRAN IVP PRN (00:45)
[2021-07-14 04:19] VITALS: BP 159/64
[2021-07-14 05:06] LABS: BASOPHILS # (AUTO) 0.1 10^3/uL (0.0-0.1); BASOPHILS % (AUTO) 1 % (0-10); EOSINOPHILS # (AUTO) 0.4 10^3/uL (0.0-0.3); EOSINOPHILS % (AUTO) 3 % (0-10); HEMATOCRIT 28 % (35-52); HEMOGLOBIN 9.8 g/dL (11.5-16.0); LYMPHOCYTES # (AUTO) 4.2 10^3/uL (1.0-4.0); LYMPHOCYTES % (AUTO) 34 % (12-44); MEAN CORPUSCULAR HEMOGLOBIN 29 pg (25-34); MEAN CORPUSCULAR HGB CONC 35 g/dL (32-36); MEAN CORPUSCULAR VOLUME 83 fL (80-99); MEAN PLATELET VOLUME 10.5 fL (9.0-12.2); MONOCYTES # (AUTO) 0.5 10^3/uL (0.0-1.0); MONOCYTES % (AUTO) 4 % (0-12); NEUTROPHILS # (AUTO) 7.1 10^3/uL (1.8-7.8); NEUTROPHILS % (AUTO) 57 % (42-75); PLATELET COUNT 230 10^3/uL (130-400); WHITE BLOOD COUNT 12.3 10^3/uL (4.3-11.0)
[2021-07-14 05:12] LABS: POTASSIUM 3.4 MMOL/L (3.6-5.0)
[2021-07-14 05:14] LABS: CALCIUM 8.1 MG/DL (8.5-10.1)
[2021-07-14 05:18] LABS: CREATININE SERUM 1.18 MG/DL (0.60-1.30)
[2021-07-14] MEDS ORDERED: diphenhydrAMINE 50 MG/ML INJ (BENADRYL) IV SCH (06:00)
[2021-07-14] MEDS ORDERED: PROMETHAZINE INJ 25 MG/ML (PHENERGAN) AMP IV SCH (06:00)
[2021-07-14] MEDS: inSUlin ASPART (NovoLOG) 1 UNIT/0.01 ML (CHARGE PER UNIT) SC SCH ×6 (06:25→20:42)
[2021-07-14 08:00] VITALS: BP 110/71
[2021-07-14] MEDS ORDERED: DEXTROSE 50% 50 ML (IMS) SYR ONE (08:23)
[2021-07-14] MEDS ORDERED: DEXTROSE 50% 50 ML (IMS) SYR IV ONE (08:45)
[2021-07-14] MEDS: meTOprolol SUCCINATE 100 MG (TOPROL XL) TAB PO SCH (11:23)
[2021-07-14] MEDS: amLODIPine 10 MG (NORVASC) TAB PO SCH (11:23)
[2021-07-14] MEDS: GABAPENTIN 400 MG (NEURONTIN) CAP PO SCH ×2 (11:26→21:15)
[2021-07-14] MEDS ORDERED: LISI20TA26 PO (11:31)
[2021-07-14] MEDS ORDERED: MAGN400T39 PO (11:31)
[2021-07-14 12:00] VITALS: BP 187/84
[2021-07-14 16:00] VITALS: BP 99/65
[2021-07-14 20:00] VITALS: BP 112/67
[2021-07-14] MEDS ORDERED: ENOXAPARIN 40 MG/0.4 ML (LOVENOX) SYR SC SCH (21:15)
--- NOTE | 2021-07-14 21:17 | History & Physical-Hospitalist ---
History of Present Illness HPI/Chief Complaint Itzel Urbano is a 61 year old female with ketosis prone brittle diabetes who presented with high blood sugars. She reports that over the past couple days her blood sugars have been very high. She tried increasing her insulin but they stayed high. She has otherwise been feeling well. She reports decreased urine output. She reports compliance with her insulin. Source: patient Exam Limitations: no limitations Date Seen 07/14/21 Time Seen by a Provider: 17:30 Attending Physician Gerardo Greenwood DO PCP Gerardo Greenwood DO Referring Physician Date of Admission Jul 13, 2021 at 21:55 Home Medications & Allergies Home Medications Reviewed patient Home Medication Reconciliation performed by pharmacy medication reconciliations cnc maintenance technician and/or nursing. Patients Allergies have been reviewed. Allergies Allergies Coded Allergies ketorolac (Verified Allergy, Severe, ANAPHYLAXIS, PT TAKES ASA AT HOME, 03/06/19) scopolamine (Verified Allergy, Mild, Rash, 03/21/19) exenatide (Verified Allergy, Unknown, NAUSEA, 03/06/19) NON STOP VOMITING latex (Verified Allergy, Unknown, RASH, 03/06/19) metoclopramide (Verified Allergy, Unknown, RESTLESS LEGS, 03/06/19) erythromycin base (Verified Adverse Reaction, Unknown, 03/21/19) Past Yrpyhrn-Aeieit-Vctijo Hx Patient Social History Tobacco Use?: Yes Tobacco type used: Cigarettes Smoking Status: Current Everyday Smoker Substance use?: Yes Alcohol Use?: No Pt feels they are or have been: No Immunizations Up To Date Date of Influenza Vaccine: Nov 22, 2019 Tetanus Booster (TDap): Unknown Hepatitis A: No Hepatitis B: No PED Vaccines UTD: No Date of Pneumonia Vaccine: Nov 06, 2019 Seasonal Allergies Seasonal Allergies: Yes Current Status Advance Directives: No Communicates: Verbally Primary Language: [place] Preferred Spoken Language: [place]uneian Is interpretation needed?: Yes Sensory deficits: Vision impairment, Hearing impairment Implanted or Applied Medical D: None, Central venous access, Stents Past Medical History Surgeries: Cardiac, Coronary Stent, Ear Surgery, Gallbladder, Orthopedic, Renal Chronic Bronchitis, Sleep Apnea Currently Using CPAP: No Currently Using BIPAP: No Chronic Edema/Swelling, Coronary Artery Disease, Deep Vein Thrombosis, High Cholesterol, Hypertension, Palpitations, Peripheral Vascular Headaches /Migraines, Neuropathy EVENT SPECIALIST History: 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 Diabetes Mellitus Type 1 with poor control 2. Hypertension 3.Hyperlipidemia 4.Chronic Kidney Disease 5. Irritable Bowel Disorder 6. Fibromyalgia 7.Psoriasis 8.chronic neck and back pain- on chronic narcotics from pain management 9. hx of blood clots in the upper extremities 10. Anxiety 11. Tobaccoism 12. 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 GERD 14. Diverticulosis 15. Seizure Disorder PSH: 1.Renal stent 2.cholecystectomy 3.Laminectomy 5.ear tubes as a child Family Medical History Cancer of mouth 19 FATHER ( of esophogeal cancer.) Cardiovascular disease 19 MOTHER G8 BROTHER Completed stroke 19 FATHER G8 BROTHER Diabetes mellitus G8 BROTHER FH: lung cancer 19 MOTHER Hypertension 19 FATHER Kidney disease 19 FATHER Myocardial infarction 19 MOTHER G8 BROTHER Respiratory disorder No Family History of: AIDS Cancer, Diabetes, Hypertension SOCIAL HISTORY: -ETOH--RARELY USES -DRUGS--Rx NARCOTIC ABUSE -SMOKES 1 PPD PSH: -LINQ DEVICE PLACED 11/09/19 FOR REPORTED PALPITATIONS X 6 MONTHS, SINCE PERCOCET WAS DC'D -MULTIPLE CARDIAC CATHS--STENT X 1 TO LAD 07/13/15. LAST CATH 01/18/19--NO INTERVENTION -LUMBAR SPINE FUSION X 3--12/2002, 04/2007, AND 05/2007 -LUMBAR DISCECTOMY 10/2000--? LAMINECTOMY? -CERVICAL SPINE FUSION 11/2006 -CHOLECYSTECTOMY 1984 -BMT'S -LITHOTRIPSY AND RIGHT URETERAL STENT -EGD'S WITH ESOPHAGEAL DILATIONS -COLONOSCOPIES, LAST ONE 03/08/19 -PORT RIGHT CHEST -LEFT SHOULDER ROTATOR CUFF REPAIR 05/01/20--DR. PALACIOS -CONTINUOUS GLUCOSE MONITOR PRESENT 06/25/20--LLQ OF ABDOMEN--NOT PRESENT 10/2020 -BILATERAL CATARACT SURGERY 10/2020 -PERIPHERAL ANGIOGRAM 05/02/[address] FELIX: SEVERE BILATERAL SUPERFICIAL FEMORAL ARTERY DISEASE AND RECOMMENDED BILATERAL FEMORAL-POPLITEAL SURGERY--REFERRED TO DR. SAWYER AT [facility] HISTORY OF EXTREME NON-COMPLIANCE IN ALL ASPECTS OF CARE Review of Systems Constitutional: weakness EENTM: no symptoms reported Respiratory: no symptoms reported Cardiovascular: no symptoms reported Gastrointestinal: no symptoms reported Genitourinary: decreased output Musculoskeletal: no symptoms reported Skin: no symptoms reported Psychiatric/Neurological: No Symptoms Reported Physical Exam Physical Exam Vital Signs Vital Signs - First Documented 07/13/21 07/13/21 20:43 23:37 Temp 37.0 Pulse 75 Resp 16 B/P (MAP) 156/67 (96) Pulse Ox 98 O2 Delivery Room Air Capillary Refill : Less Than 3 Seconds Height, Weight, BMI Height: 5'1.00" Weight: 122lbs. 1.0oz. 55.682575ug; 26.40 BMI Method:Estimated General Appearance: No Apparent Distress, Chronically ill Neck: Normal Inspection, Supple Respiratory: Lungs Clear, Normal Breath Sounds, No Respiratory Distress Cardiovascular: Regular Rate, Rhythm, No Edema, No Murmur Gastrointestinal: Normal Bowel Sounds, Non Tender, Soft Extremity: Normal Inspection, Non Tender, No Pedal Edema Neurologic/Psychiatric: Alert, Oriented x3, No Motor/Sensory Deficits, Other (irritable) Skin: Normal Color, Warm/Dry Results Results/Procedures Labs Laboratory Tests 07/13/21 20:54 07/14/21 05:00 Patient resulted labs reviewed. Imaging: Reviewed Imaging Report Assessment/Plan Admission Diagnosis Ketosis prone brittle diabetes with hyperglycemia Admission Status: Inpatient Order (span 2 midnights) Reason for Inpatient Admission: Insulin Assessment and Plan Ketosis prone diabetes Brittle diabetes Insulin dependent diabetes mellitus with hyperglycemia Blood sugar >800 on arrival Given IV insulin Started on Levemir Novolog with meals Modified sliding scale Blood sugar 26 this morning Improved with dextrose fluids Continue monitoring and education LANE Improved IV fluids Nausea No vomiting Abusing phenergan and benadryl, discontinued Zofran as needed, received previously without allergy PAD Reports to be scheduled with Dr. Sawyer soon Reports that he has cancelled the appointment multiple times Chronic pain Oxycodone DVT prophylaxis: Lovenox Diagnosis/Problems Diagnosis/Problems (1) Ketosis-prone diabetes mellitus Status: Acute (2) Brittle diabetes Status: Acute (3) Uncontrolled insulin dependent diabetes mellitus Status: Acute (4) Hypoglycemia Status: Acute (5) Acute kidney injury Status: Acute (6) Chronic pain Status: Chronic (7) PAD (peripheral artery disease) Status: Chronic (8) Nausea without vomiting Status: Chronic Clinical Quality Measures Smoking Cessation Counseling: Counseling-Symptomatic: 3-10 Minutes JUAN DAVID BRADSHAW MD Jul 14, 2021 21:17
[2021-07-14 23:24] VITALS: BP 123/68
[2021-07-15 04:05] VITALS: BP 117/76
[2021-07-15 05:10] LABS: BASOPHILS # (AUTO) 0.1 10^3/uL (0.0-0.1); BASOPHILS % (AUTO) 1 % (0-10); EOSINOPHILS # (AUTO) 0.6 10^3/uL (0.0-0.3); EOSINOPHILS % (AUTO) 4 % (0-10); HEMATOCRIT 27 % (35-52); HEMOGLOBIN 8.7 g/dL (11.5-16.0); LYMPHOCYTES # (AUTO) 5.8 10^3/uL (1.0-4.0); LYMPHOCYTES % (AUTO) 43 % (12-44); MEAN CORPUSCULAR HEMOGLOBIN 28 pg (25-34); MEAN CORPUSCULAR HGB CONC 33 g/dL (32-36); MEAN CORPUSCULAR VOLUME 87 fL (80-99); MEAN PLATELET VOLUME 10.6 fL (9.0-12.2); MONOCYTES # (AUTO) 0.5 10^3/uL (0.0-1.0); MONOCYTES % (AUTO) 4 % (0-12); NEUTROPHILS # (AUTO) 6.4 10^3/uL (1.8-7.8); NEUTROPHILS % (AUTO) 48 % (42-75); PLATELET COUNT 231 10^3/uL (130-400); WHITE BLOOD COUNT 13.5 10^3/uL (4.3-11.0)
[2021-07-15] MEDS: NS IV 1000 ML 1,000 ML IV SCH (05:10)
[2021-07-15 05:21] LABS: POTASSIUM 3.8 MMOL/L (3.6-5.0)
[2021-07-15 05:22] LABS: CALCIUM 7.5 MG/DL (8.5-10.1)
[2021-07-15 05:27] LABS: CREATININE SERUM 1.46 MG/DL (0.60-1.30)
[2021-07-15] MEDS: inSUlin ASPART (NovoLOG) 1 UNIT/0.01 ML (CHARGE PER UNIT) SC SCH ×5 (06:00→20:31)
[2021-07-15 08:00] VITALS: BP 98/61
[2021-07-15] MEDS: GABAPENTIN 400 MG (NEURONTIN) CAP PO SCH ×2 (08:35→20:31)
[2021-07-15] MEDS: meTOprolol SUCCINATE 100 MG (TOPROL XL) TAB PO SCH (08:36)
[2021-07-15] MEDS: amLODIPine 10 MG (NORVASC) TAB PO SCH (08:36)
[2021-07-15 12:02] VITALS: BP 165/78
--- NOTE | 2021-07-15 13:56 | Progress Note - Hospitalist ---
Subjective HPI/CC On Admission Date Seen by Provider: Jul 15, 2021 Time Seen by Provider: 11:00 Itzel Urbano is a 61 year old female with ketosis prone brittle diabetes who presented with high blood sugars. She reports that over the past couple days her blood sugars have been very high. She tried increasing her insulin but they st ayed high. She has otherwise been feeling well. She reports decreased urine output. She reports compliance with her insulin. Subjective/Events-last exam Pt reports feeling ok today. Has been chronic complaints but nothign new. Still feels too weak to DC today. Discussed plan to not change medications and DC tomorrow. Pt agreeable. Objective Exam Vital Signs Vital Signs Date Time Temp Pulse Resp B/P (MAP) Pulse Ox O2 Delivery O2 Flow Rate FiO2 07/15/21 12:29 67 07/15/21 12:02 36.6 20 165/78 (107) 99 Room Air Capillary Refill : Less Than 3 Seconds General Appearance: No Apparent Distress, Chronically ill Respiratory: Lungs Clear, No Respiratory Distress Cardiovascular: Regular Rate, Rhythm, No Murmur Gastrointestinal: Normal Bowel Sounds, Non Tender, Soft Neurologic/Psychiatric: Alert, Oriented x3 Results/Procedures Lab Laboratory Tests 07/15/21 05:00 Patient resulted labs reviewed. Imaging: Reviewed Imaging Report Assessment/Plan Assessment and Plan Assess & Plan/Chief Complaint Ketosis prone diabetes Brittle diabetes Insulin dependent diabetes mellitus with hyperglycemia Continue Levemir, BS improved Novolog with meals Modified sliding scale Blood sugars stable x24 hours Continue monitoring and education LANE Resolved Nausea No vomiting phenergan and benadryl discontinued Zofran as needed, received previously without allergy PAD Reports to be scheduled with Dr. Wren soon Reports that he has cancelled the appointment multiple times Chronic pain Oxycodone DVT prophylaxis: Lovenox Clinical Quality Measures Smoking Cessation Counseling: Counseling-Symptomatic: 3-10 Minutes GERARDO RITTER MD Jul 15, 2021 13:56
--- NOTE | 2021-07-15 14:37 | Physical Therapy Evaluation ---
PT Evaluation-General Medical Diagnosis Admission Date Jul 13, 2021 at 21:55 Medical Diagnosis: uncontrolled IDDM/dehydration/renal insufficency. Onset Date: Jul 13, 2021 Therapy Diagnosis Therapy Diagnosis: debility/weakness Height/Weight Height (Feet): 5 Height (Inches): 1.00 Weight (Pounds): 122 Weight (Ounces): 1.0 Precautions Precautions/Isolations: Standard Precautions Referral Physician: Nusrat Reason for Referral: Evaluation/Treatment Medical History Pertinent Medical History: Alcoholism, CAD, DM, GERD, HTN, Neuropathy, Renal Insufficiency, Smoking Current History EMS secondary to elevated blood sugar Reviewed History: Yes Social History Current Living Status: Other Family Prior Prior Level of Function SCALE: Activities may be completed with or without assistive devices. 5-Eherxtujkx-bqdfjsx completes the activity by him/herself with no assistance from a helper. 5-Set-up or Clean-up Assistance-helper sets up or cleans up; patient completes activity. [place] assists only prior to or following the activity. 4-Supervision or Touching Assistance-helper provides verbal cues and/or touching/steadying and/or contact guard assistance as patient completes activity. Assistance may be provided throughout the activity or intermittently. 3-Partial/Moderate Assistance-helper does LESS THAN HALF the effort. [place] lifts, holds or supports trunk or limbs, but provides less than half the effort. 2-Substantial/Maximal Assistance-helper does MORE THAN HALF the effort. [place] lifts or holds trunk or limbs and provides more than half the effort. 0-Friygqvwy-ldxaqu does ALL the effort. Patient does none of the effort to complete the activity. Or, the assistance of 2 or more helpers is required for the patient to complete the activity. If activity was not attempted, code reason: 7-Patient Refused. 9-Not Applicable-not attempted and the patient did not perform the activity before the current illness, exacerbation or injury. 10-Not Attempted due to Environmental Limitations-(lack of equipment, weather restraints, etc.). 88-Not Attempted due to Medical Conditions or Safety Concerns. Bed Mobility: 6 Transfers (B,C,W/C): 6 Gait: 6 Indoor Mobility (Ambulation): Independent Prior Devices Use: Walker PT Evaluation-Current Subjective Patient agrees to PT. Up in room independently. Objective Patient Orientation: Normal For Age Attachments: IV ROM/Strength ROM Lower Extremities bilateral LE WFL Strength Lower Extremities 3+/5 grossly bilateral LE Integumentary/Posture Bowel Incontinence: No Bladder Incontinence: No Posture trunk flexed Neuromuscular (Tone, Coordination, Reflexes) grossly intact Sensory Vision: Wears Glasses Hearing: Functional Transfers Lying to Sitting/Side of Bed(Q: 6 Sit to Stand (QC): 6 Chair/Pft-qk-Cjpga Xfer(QC): 6 Gait Does the Patient Walk?: Yes Mode of Locomotion: Walk Anticipated Mode of Locomotion: Walk Walk 10 feet (QC): 6 Walk 50 ft with 2 Turns(QC): 6 Walk 150 ft (QC): 6 Distance: 250' Gait Assistive Device: FWW Comments/Gait Description safe and functional with no deviation Balance Sitting Static: Normal Sitting Dynamic: Normal Standing Static: Normal Standing Dynamic: Normal Assessment/Needs 61 y.o. female, is currently at independent [facility] with all gross motor skills. No skilled PT indicated. Rehab Potential: Fair PT Plan Treatment/Plan Treatment Plan: Discontinue PT, goals met Treatment Duration: Jul 15, 2021 Frequency: 1 time per week Estimated Hrs Per Day: .25 hour per day Patient and/or Family Agrees t: Yes Time/GCodes Time In: 1333 Time Out: 1347 Total Billed Treatment Time: 14 Total Billed Treatment 1 visit EVMod 14 min KELVIN CALVO PT Jul 15, 2021 14:37
[2021-07-15 16:00] VITALS: BP 158/82
[2021-07-15] MEDS: PANTOPRAZOLE 40 MG (PROTONIX) TAB PO SCH (16:10)
[2021-07-15 19:35] VITALS: BP 136/65
[2021-07-15] MEDS ORDERED: ENOXAPARIN 30 MG/0.3 ML (LOVENOX) SYR SC SCH (21:00)
[2021-07-16 00:33] VITALS: BP 130/67
[2021-07-16 04:00] VITALS: BP 100/62
[2021-07-16] MEDS: PANTOPRAZOLE 40 MG (PROTONIX) TAB PO SCH (06:11)
[2021-07-16] MEDS: inSUlin ASPART (NovoLOG) 1 UNIT/0.01 ML (CHARGE PER UNIT) SC SCH (06:11)
[2021-07-16 08:00] VITALS: BP 132/65
[2021-07-16] MEDS: amLODIPine 10 MG (NORVASC) TAB PO SCH (08:48)
[2021-07-16] MEDS: GABAPENTIN 400 MG (NEURONTIN) CAP PO SCH (08:48)
[2021-07-16] MEDS: meTOprolol SUCCINATE 100 MG (TOPROL XL) TAB PO SCH (08:48)
[2021-07-16] MEDS ORDERED: INSU100V5 SQ (10:13)
--- NOTE | 2021-07-16 10:16 | Discharge Inst-Simple/Standard ---
Discharge Inst-Standard Discharge Medications New, Converted or Re-Newed RX: Transmitted to Pharmacy Patient Instructions/Follow Up Plan of Care/Instructions/FU: Please continue to take your medications as written. Please follow up with your primary care doctor to follow up this hospital stay. Activity as Tolerated: Yes Discharge Diet: ADA Diet Return to The Hospital For: Chest pain, shortness of breath, fever, very high or low blood sugars, if you feel you are getting worse. GERARDO RITTER MD Jul 16, 2021 10:16
--- NOTE | 2021-07-16 10:20 | Discharge Summary ---
Diagnosis/Chief Complaint Date of Admission Jul 13, 2021 at 21:55 Date of Discharge Discharge Date: Jul 16, 2021 Admission Diagnosis Ketosis prone brittle diabetes with hyperglycemia Primary Care Gerardo Greenwood DO Discharge Diagnosis (1) Ketosis-prone diabetes mellitus Status: Acute (2) Brittle diabetes Status: Acute (3) Uncontrolled insulin dependent diabetes mellitus Status: Acute (4) Hypoglycemia Status: Acute (5) Acute kidney injury Status: Acute (6) Chronic pain Status: Chronic (7) PAD (peripheral artery disease) Status: Chronic (8) Nausea without vomiting Status: Chronic Discharge Summary Discharge Physical Exam Allergies: Coded Allergies: ketorolac (Verified Allergy, Severe, ANAPHYLAXIS, PT TAKES ASA AT HOME, 03/06/19) scopolamine (Verified Allergy, Mild, Rash, 03/21/19) exenatide (Verified Allergy, Unknown, NAUSEA, 03/06/19) NON STOP VOMITING latex (Verified Allergy, Unknown, RASH, 03/06/19) metoclopramide (Verified Allergy, Unknown, RESTLESS LEGS, 03/06/19) erythromycin base (Verified Adverse Reaction, Unknown, 03/21/19) Vitals & I&Os Vital Signs Date Time Temp Pulse Resp B/P (MAP) Pulse Ox O2 Delivery O2 Flow Rate FiO2 07/16/21 10:37 36.6 62 20 132/65 99 Room Air General Appearance: No Apparent Distress, Chronically ill, Thin Respiratory: Lungs Clear, No Respiratory Distress Cardiovascular: Regular Rate, Rhythm, No Murmur Gastrointestinal: Normal Bowel Sounds, Soft Neurologic/Psychiatric: Alert, Oriented x3 Hospital Course Patient was admitted to the hospital due to poorly controlled insulin-dependent diabetes that is ketosis prone. He required multiple bolus doses of insulin to get her blood sugars under control. She then suffered hypoglycemia down to the 20s. Her insulin regimen was adjusted to 15 units of Levemir per day. She aylin mary takes 10 units of Levemir twice daily. We discussed to decrease at home to 15 units daily. There is a question of compliance as her blood sugars are relatively well controlled with less than her home dose while she is here. She was discharged to follow-up with her primary care doctor. She normally sees Dr. Greenwood though plans to switch to [facility]. Labs (last 24 hrs) Patient resulted labs reviewed. Pending Labs Imaging: Reviewed Imaging Report Discussion & Recommendations Discharge Planning: >30 minutes discharge planning Discharge Home Medications: Active Scripts Active Levemir (Insulin Determir) 1,000 Units/10 Ml Soln 15 Unit SQ HS Reported Magnesium (Magnesium Oxide) 400 Mg Tablet 400 Mg PO HS Amlodipine Besylate 10 Mg Tablet 10 Mg PO DAILY Metoprolol Succinate 100 Mg Tab.er.24h 100 Mg PO DAILY Novolog Flexpen (Insulin Aspart) 300 Units/3 Ml Solution Units SQ TIDWM USES SLIDING SCALE Aspirin EC (Aspirin) 81 Mg Tablet.dr 81 Mg PO DAILY Oxycodone HCl 15 Mg Tablet 15 Mg PO QID PRN Pantoprazole Sodium 40 Mg Tablet.dr 40 Mg PO BIDAC Atorvastatin Calcium 20 Mg Tablet 20 Mg PO HS Gabapentin 800 Mg Tablet 800 Mg PO DAILY Gabapentin 800 Mg Tablet 1,600 Mg PO HS TAKES 2 (800MG) TABLETS Instructions to patient/family Please see electronic discharge instructions given to patient. Clinical Quality Measures Smoking Cessation Counseling: Counseling-Symptomatic: 3-10 Minutes GERARDO RITTER MD Jul 16, 2021 10:20
[2021-07-16 10:37] VITALS: BP 132/65
--- NOTE | 2021-07-16 11:28 | Physical Therapy Daily Note ---
PT Daily Note-Current Subjective Patient sitting up in bed upon PT arrival, agreeable to treatment. Reports no pain currently, but asks to go outside to ambulate so that she can smoke. Mental Status Patient Orientation: Person, Place, Time, Situation Transfers SCALE: Activities may be completed with or without assistive devices. 9-Ewvuxoyirp-brlyydm completes the activity by him/herself with no assistance f rom a helper. 5-Set-up or Clean-up Assistance-helper sets up or cleans up; patient completes activity. [place] assists only prior to or following the activity. 4-Supervision or Touching Assistance-helper provides verbal cues and/or touching/steadying and/or contact guard assistance as patient completes activity. Assistance may be provided throughout the activity or intermittently. 3-Partial/Moderate Assistance-helper does LESS THAN HALF the effort. [place] lifts, holds or supports trunk or limbs, but provides less than half the effort. 2-Substantial/Maximal Assistance-helper does MORE THAN HALF the effort. [place] lifts or holds trunk or limbs and provides more than half the effort. 4-Mbxfggkhz-utuxzx does ALL the effort. Patient does none of the effort to complete the activity. Or, the assistance of 2 or more helpers is required for the patient to complete the activity. If activity was not attempted, code reason: 7-Patient Refused. 9-Not Applicable-not attempted and the patient did not perform the activity before the current illness, exacerbation or injury. 10-Not Attempted due to Environmental Limitations-(lack of equipment, weather restraints, etc.). 88-Not Attempted due to Medical Conditions or Safety Concerns. Roll Left & Right (QC): 6 Sit to Lying (QC): 6 Lying to Sitting/Side of Bed(Q: 6 Sit to Stand (QC): 6 Chair/Agy-iz-Qzctq Xfer(QC): 6 Toilet Transfer (QC): 6 Gait Training Does the Patient Walk?: Yes Distance: 320 feet Walk 10 feet (QC): 6 Walk 50 ft with 2 Turns(QC): 6 Walk 150 ft (QC): 6 Gait Persons Needed: 0 Gait Assistive Device: FWW Treatments Gait training for increased balance and improved function. Assessment Current Status: Fair Progress Patient tolerated treatment well. Requests no exercises as she feels she doesn't need them, but is agreeable to walking. Demonstrates I with all observed bed mobility and transfers. Patient ambulates 320 feet with FWW for balance, Mod I and verbal cues for path. Patient ambulates with right lateral trunk lean, however reports the lateral lean has been present since her CVA. Patient in bed post treatment with all needs met, nursing notified, call light in reach. PT Plan Treatment/Plan Treatment Plan: Discontinue PT, goals met Treatment Duration: Jul 15, 2021 Frequency: 1 time per week Estimated Hrs Per Day: .25 hour per day Patient and/or Family Agrees t: Yes Safety Risks/Education Patient Education: Gait Training Teaching Recipient: Patient Teaching Methods: Demonstration, Discussion Response to Teaching: Verbalize Understanding, Return Demonstration Time/GCodes Time In: 913 Time Out: 928 Total Billed Treatment Time: 15 Total Billed Treatment Visit, YOBANI Garza PT Jul 16, 2021 11:28
== END 2021-07-16 10:37 | disposition home or self-care (01) ==
LOC: EDUNIT# 20:42 → ER 20:43 → 4TH 20:44 → UNDOADMOB 20:44 → 4TH 21:55 → UNDOADMIN 21:55 → 4TH 07-14 16:22 → UNDODISOB 07-16 10:37 → UNDODISIN 07-16 10:40
PROVIDERS: ADMIT Internal Medicine; ATTEND Family Medicine
DX: E10.649 Type 1 diabetes mellitus with hypoglycemia without coma (principal); E10.40 Type 1 diabetes mellitus with diabetic neuropathy, unspecified; E86.0 Dehydration; E78.00 Pure hypercholesterolemia, unspecified; E10.51 Type 1 diabetes mellitus with diabetic peripheral angiopathy without gangrene; N17.9 Acute kidney failure, unspecified; G89.29 Other chronic pain; I10 Essential (primary) hypertension; I82.409 Acute embolism and thrombosis of unspecified deep veins of unspecified lower extremity; I25.10 Atherosclerotic heart disease of native coronary artery without angina pectoris; R11.2 Nausea with vomiting, unspecified; G40.909 Epilepsy, unspecified, not intractable, without status epilepticus; G43.909 Migraine, unspecified, not intractable, without status migrainosus; J30.9 Allergic rhinitis, unspecified; K21.9 Gastro-esophageal reflux disease without esophagitis; M79.7 Fibromyalgia; F41.9 Anxiety disorder, unspecified; Z90.49 Acquired absence of other specified parts of digestive tract; Z79.82 Long term (current) use of aspirin; Z79.4 Long term (current) use of insulin; Z79.891 Long term (current) use of opiate analgesic; Z79.899 Other long term (current) drug therapy; Z82.3 Family history of stroke; Z83.3 Family history of diabetes mellitus; Z80.1 Family history of malignant neoplasm of trachea, bronchus and lung
CPT/HCPCS: 80048 ×2; 80053; 80306; 81000; 82150; 82805; 82947 ×3; 83690; 83735; 85025 ×3; 93041; 96361; 96374; 97116; 97162; 99285; G0378; 36415

== ENCOUNTER 2021-08-11 10:20 | Emergency (ER) | payer MEDICARE ==
[~2021-08-11] VITALS: Ht 152 cm; Wt 58.0 kg
[~2021-08-11 10:20] MED LIST changes: +MAGN400T39 PO
[2021-08-11] MEDS ORDERED: ONDANSETRON 4 MG/2 ML (SDV) Z0FRAN IVP ONE ×3 (10:30→19:30)
[2021-08-11] MEDS ORDERED: inSUlin (REGULAR) HUMAN 1 UNIT/0.01 ML (CHARGE PER UNIT) IV ONE (10:30)
[2021-08-11] MEDS ORDERED: NS IV 1000 ML 1,000 ML IV SCH (10:30)
--- NOTE | 2021-08-11 10:31 | ED General ---
General Stated Complaint: HYPERGLYCEMIA Source of Information: Patient Exam Limitations: No Limitations (LATANYA GOODEN) History of Present Illness Date Seen by Provider: Aug 11, 2021 Time Seen by Provider: 10:15 Initial Comments Patient to the ER by EMS from home with chief complaint of blood sugars running high for the past week. She has been using her insulin and on Wednesday night had her blood sugar back down to 135 but she says she has had poor oral intake and poor urinary output. She is having some nausea but no vomiting. She had a syncopal episode on Wednesday fell into the tub she said that there was blood everywhere and hit the back of her head. She is not on a blood thinner. She is just having generalized weakness but no numbness tingling or unilateral weakness. No fevers cough shortness of air. She did take her 10 units of regular insulin at 830, 2 hours prior to arrival and took her Levemir this morning. She is a patient of Dr. Kulkarni. (LATANYA GOODEN) Allergies and Home Medications Allergies Coded Allergies: ketorolac (Verified Allergy, Severe, ANAPHYLAXIS, PT TAKES ASA AT HOME, 03/06/19) scopolamine (Verified Allergy, Mild, Rash, 03/21/19) exenatide (Verified Allergy, Unknown, NAUSEA, 03/06/19) NON STOP VOMITING latex (Verified Allergy, Unknown, RASH, 03/06/19) metoclopramide (Verified Allergy, Unknown, RESTLESS LEGS, 03/06/19) erythromycin base (Verified Adverse Reaction, Unknown, 03/21/19) Patient Home Medication List Home Medication List Reviewed: Yes (WARD MUNGUIA MD) Amlodipine Besylate (Amlodipine Besylate) 10 Mg Tablet, 10 MG PO DAILY, (Reported) Entered as Reported by: NAEL ABDI on 05/15/21 1506 Aspirin (Aspirin EC) 81 Mg Tablet.dr, 81 MG PO DAILY, (Reported) Entered as Reported by: NAEL ABDI on 04/10/21 1009 Atorvastatin Calcium (Atorvastatin Calcium) 20 Mg Tablet, 20 MG PO HS, (Reported) Entered as Reported by: NAEL ABDI on 07/18/20 1357 Gabapentin (Gabapentin) 800 Mg Tablet, 1,600 MG PO HS, (Reported) Entered as Reported by: DUSTY WINN on 12/17/19 1019 Gabapentin (Gabapentin) 800 Mg Tablet, 800 MG PO DAILY, (Reported) Entered as Reported by: DENISSE JOE on 03/29/20 1053 Insulin Aspart (Novolog Flexpen) 300 Units/3 Ml Solution, UNITS SQ TIDWM, (Reported) Entered as Reported by: NAEL ABDI on 04/30/21 1235 Insulin Determir (Levemir) 1,000 Units/10 Ml Soln, 15 UNIT SQ HS Prescribed by: GERARDO RITTER on 07/16/21 1013 Magnesium Oxide (Magnesium) 400 Mg Tablet, 400 MG PO HS, (Reported) Entered as Reported by: AMELIA BOSS on 07/14/21 1131 Metoprolol Succinate (Metoprolol Succinate) 100 Mg Tab.er.24h, 100 MG PO DAILY, (Reported) Entered as Reported by: NAEL ABDI on 05/15/21 1506 Oxycodone HCl (Oxycodone HCl) 15 Mg Tablet, 15 MG PO QID PRN for PAIN-SEVERE (8- 10), (Reported) Entered as Reported by: NAEL ABDI on 04/10/21 1009 Pantoprazole Sodium (Pantoprazole Sodium) 40 Mg Tablet.dr, 40 MG PO BIDAC, (Reported) Entered as Reported by: NAEL ABDI on 04/10/21 1009 Review of Systems Review of Systems Constitutional: see HPI EENTM: see HPI Respiratory: no symptoms reported Cardiovascular: see HPI Gastrointestinal: see HPI Genitourinary: no symptoms reported : No Musculoskeletal: see HPI Skin: see HPI Psychiatric/Neurological: See HPI Hematologic/Lymphatic: No Symptoms Reported Immunological/Allergic: no symptoms reported (WARD MUNGUIA MD) Past Msdvofl-Gnujhs-Yidzhv Hx Immunizations Up To Date Tetanus Booster (TDap): Unknown PED Vaccines UTD: No (LATANYA GOODEN) Seasonal Allergies Seasonal Allergies: Yes (LATANYA GOODEN) Past Medical History Surgery/Hospitalization HX: PORT RIGHT CHEST April 2021-DKA hospital admission Surgeries: Yes (EGD and colonoscopy) Cardiac, Coronary Stent, Ear Surgery, Gallbladder, Orthopedic, Renal Respiratory: Yes Chronic Bronchitis, Sleep Apnea Currently Using CPAP: No Currently Using BIPAP: No Cardiac: Yes (DVT'S IN ARMS; CARDIAC STENT X 1; CAROTID DISEASE;LINQ DEVICE;SEVERE PAD) Chronic Edema/Swelling, Coronary Artery Disease, Deep Vein Thrombosis, High Cholesterol, Hypertension, Palpitations, Peripheral Vascular Neurological: Yes (NEUROPATHY IN HANDS AND FEET) Headaches /Migraines, Neuropathy 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 Disorders: No 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 Disorders: Denies 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 History: Menopausal Sexually Transmitted Disease: No HIV/AIDS: No Genitourinary: Yes Bladder Infection, Kidney Stones, Renal Failure Gastrointestinal: Yes Gastroesophageal Reflux Musculoskeletal: Yes (CHRONIC GENERALIZED PAIN;CHRONIC BILAT SHOULDER PAIN;CHRONIC NECK PAIN ) Degenerate Disk Disease, Fibromyalgia, Chronic Back Pain Endocrine: Yes (NON-COMPLAINT;MULTIPLE EPISODES OF DKA-EASILY CONTROLLED ON INSULIN IN HOSP) Diabetes, Insulin dep HEENT: Yes (GLASSES; S/P BMT'S;BILAT CATARACT SURGERY 10/2020) Cataract, Chronic Ear Infection Loss of Vision: Bilateral Hearing Impairment: Hard of Hearing Cancer: No Psychosocial: Yes Anxiety Integumentary: Yes Psoriasis Blood Disorders: No Adverse Reaction/Blood Tranf: No (LATANYA GOODEN) Family Medical History Cancer of mouth 19 FATHER ( of esophogeal cancer.) Cardiovascular disease 19 MOTHER G8 BROTHER Completed stroke 19 FATHER G8 BROTHER Diabetes mellitus G8 BROTHER FH: lung cancer 19 MOTHER Hypertension 19 FATHER Kidney disease 19 FATHER Myocardial infarction 19 MOTHER G8 BROTHER Respiratory disorder No Family History of: AIDS Cancer, Diabetes, Hypertension SOCIAL HISTORY: -ETOH--RARELY USES -DRUGS--Rx NARCOTIC ABUSE -SMOKES 1 PPD PSH: -LINQ DEVICE PLACED 11/09/19 FOR REPORTED PALPITATIONS X 6 MONTHS, SINCE PERCOCET WAS DC'D -MULTIPLE CARDIAC CATHS--STENT X 1 TO LAD 07/13/15. LAST CATH 01/18/19--NO INTERVENTION -LUMBAR SPINE FUSION X 3--12/2002, 04/2007, AND 05/2007 -LUMBAR DISCECTOMY 10/2000--? LAMINECTOMY? -CERVICAL SPINE FUSION 11/2006 -CHOLECYSTECTOMY 1984 -BMT'S -LITHOTRIPSY AND RIGHT URETERAL STENT -EGD'S WITH ESOPHAGEAL DILATIONS -COLONOSCOPIES, LAST ONE 03/08/19 -PORT RIGHT CHEST -LEFT SHOULDER ROTATOR CUFF REPAIR 05/01/20--DR. APLACIOS -CONTINUOUS GLUCOSE MONITOR PRESENT 06/25/20--LLQ OF ABDOMEN--NOT PRESENT 10/2020 -BILATERAL CATARACT SURGERY 10/2020 -PERIPHERAL ANGIOGRAM 05/02/[address] FELIX: SEVERE BILATERAL SUPERFICIAL FEMORAL ARTERY DISEASE AND RECOMMENDED BILATERAL FEMORAL-POPLITEAL SURGERY--REFERRED TO DR. SAWYER AT [facility] LONG HISTORY OF EXTREME NON-COMPLIANCE IN ALL ASPECTS OF CARE (LATANYA GOODEN) Physical Exam Vital Signs Vital Signs - First Documented 08/11/21 10:20 Temp 36.8 Pulse 77 Resp 20 B/P (MAP) 178/78 (111) Pulse Ox 100 O2 Delivery Room Air (WARD MUNGUIA MD) Vital Signs Capillary Refill : (LATANYA GOODEN) Height, Weight, BMI Height: 5'1.00" Weight: 122lbs. 1.0oz. 55.978931pk; 26.40 BMI Method:Estimated General Appearance: WD/WN, Chronically ill Eyes: Bilateral Eye Normal Inspection, Bilateral Eye PERRL HEENT: PERRL/EOMI, Pharynx Normal; No Moist Mucous Membranes (dry mm) Neck: Full Range of Motion, Normal Inspection Respiratory: Lungs Clear, Normal Breath Sounds, No Accessory Muscle Use, No Respiratory Distress Cardiovascular: Regular Rate, Rhythm, No Edema, Normal Peripheral Pulses Gastrointestinal: Normal Bowel Sounds, Non Tender, Soft Neurologic/Psychiatric: Alert, Oriented x3, No Motor/Sensory Deficits, Normal Mood/Affect Skin: Normal Color, Warm/Dry (LATANYA GOODEN) Progress/Results/Core Measures Suspected Sepsis SIRS Temperature: Pulse: Respiratory Rate: Laboratory Tests 08/11/21 10:30: White Blood Count 8.9 Blood Pressure / Mean: Laboratory Tests 08/11/21 10:30: Creatinine 1.96H, Platelet Count 258, Total Bilirubin 0.4 (LATANYA GOODEN) Results/Orders Lab Results Laboratory Tests Test 08/11/21 10:30 08/11/21 10:50 08/11/21 16:05 08/11/21 16:10 Range/Units White Blood Count 8.9 4.3-11.0 10^3/uL Red Blood Count 3.72 L 3.80-5.11 10^6/uL Hemoglobin 10.7 L 11.5-16.0 g/dL Hematocrit 33 L 35-52 % Mean Corpuscular Volume 89 80-99 fL Mean Corpuscular Hemoglobin 29 25-34 pg Mean Corpuscular Hemoglobin Concent 32 32-36 g/dL Red Cell Distribution Width 14.3 10.0-14.5 % Platelet Count 258 130-400 10^3/uL Mean Platelet Volume 11.5 9.0-12.2 fL Immature Granulocyte % (Auto) 1 % Neutrophils (%) (Auto) 74 42-75 % Lymphocytes (%) (Auto) 18 12-44 % Monocytes (%) (Auto) 5 0-12 % Eosinophils (%) (Auto) 2 0-10 % Basophils (%) (Auto) 1 0-10 % Neutrophils # (Auto) 6.5 1.8-7.8 10^3/uL Lymphocytes # (Auto) 1.6 1.0-4.0 10^3/uL Monocytes # (Auto) 0.5 0.0-1.0 10^3/uL Eosinophils # (Auto) 0.2 0.0-0.3 10^3/uL Basophils # (Auto) 0.1 0.0-0.1 10^3/uL Immature Granulocyte # (Auto) 0.0 0.0-0.1 10^3/uL Sodium Level 126 L 135-145 MMOL/L Potassium Level 4.5 3.6-5.0 MMOL/L Chloride Level 95 L 98-107 MMOL/L Carbon Dioxide Level 20 L 21-32 MMOL/L Anion Gap 10 5-14 MMOL/L Blood Urea Nitrogen 25 H 7-18 MG/DL Creatinine 1.96 H 0.60-1.30 MG/DL Estimat Glomerular Filtration Rate 26 BUN/Creatinine Ratio 13 Glucose Level 1067 *H 70-105 MG/DL Calcium Level 8.1 L 8.5-10.1 MG/DL Corrected Calcium 8.7 8.5-10.1 MG/DL Total Bilirubin 0.4 0.1-1.0 MG/DL Aspartate Amino Transf (AST/SGOT) 18 5-34 U/L Alanine Aminotransferase (ALT/SGPT) 19 0-55 U/L Alkaline Phosphatase 124 40-136 U/L Troponin I < 0.028 <0.028 NG/ML C-Reactive Protein High Sensitivity 0.11 0.00-0.50 MG/DL Total Protein 6.5 6.4-8.2 GM/DL Albumin 3.3 3.2-4.5 GM/DL Urine Color YELLOW Urine Clarity CLEAR Urine pH 6.5 5-9 Urine Specific [place] 1.015 L 1.016-1.022 Urine Protein 2+ H NEGATIVE Urine Glucose (UA) 3+ H NEGATIVE Urine Ketones NEGATIVE NEGATIVE Urine Nitrite NEGATIVE NEGATIVE Urine Bilirubin NEGATIVE NEGATIVE Urine Urobilinogen 0.2 < = 1.0 MG/DL Urine Leukocyte Esterase NEGATIVE NEGATIVE Urine RBC (Auto) NEGATIVE NEGATIVE Urine RBC NONE /HPF Urine WBC NONE /HPF Urine Squamous Epithelial Cells RARE /HPF Urine Crystals NONE /LPF Urine Bacteria NEGATIVE /HPF Urine Casts NONE /LPF Urine Mucus NEGATIVE /LPF Urine Culture Indicated NO Glucometer 65 L 39 *L 70-110 MG/DL Test 08/11/21 17:34 08/11/21 18:33 08/11/21 18:59 08/11/21 20:07 Range/Units Glucometer 81 190 H 239 H 321 H 70-110 MG/DL (WARD MUNGUIA MD) My Orders Orders - WARD MUNGUIA MD Accucheck Stat ONCE (08/11/21 17:59) Accucheck Stat ONCE (08/11/21 17:59) Ondansetron Injection (Zofran Injectio (08/11/21 19:30) Promethazine Injection (Phenergan Injec (08/11/21 19:45) Diphenhydramine Injection (Benadryl Inje (08/11/21 19:45) Ct Head Wo (08/11/21 19:41) Ondansetron Injection (Zofran Injectio (08/11/21 20:00) Oxycodone/Apap 5/325mg Tablet (Percocet (08/11/21 20:45) (WARD MUNGUIA MD) Medications Given in ED (WARD MUNGUIA MD) Vital Signs/I&O 08/11/21 08/11/21 10:20 20:55 Temp 36.8 Pulse 77 91 Resp 20 18 B/P (MAP) 178/78 (111) 186/86 Pulse Ox 100 96 O2 Delivery Room Air Room Air (WARD MUNGUIA MD) Vital Signs/I&O Capillary Refill : (LATANYA GOODEN) Progress Note #1: Time: 13:05 Progress Note The patient has been up and ambulated to the bathroom several times. She is working on her 2 L of fluids as well as some nausea medicine and little pain medicine. She has corrected sodium to 142. She has hyperglycemia because she has not been taking her medication however she does not have a gap or ketones. No DKA. Another 25 units of regular insulin subcu. Progress Note #2: Time: 16:18 Progress Note The patient appears to be quite sensitive to insulin as after 30 units of regular insulin which she claims she has been taking more than that and the past 24 hours her blood sugar is 39. We will give her half of an amp of D50 and encourage her to eat something and watch her little longer. (LATANYA GOODEN) Progress Note #1: Time: 19:43 Progress Note I assumed care of this patient from Dr. Gooden at 1800. Plan was to repeat a couple of blood sugars and discharge her when stable. Blood sugars have been stable. However, patient has been hollering out complaining of restless leg symptoms and associated nausea. She is specifically asking for promethazine and Benadryl pushed together. She acknowledges this gives her an appearance of drug-seeking behavior. She also reports falling and striking her head during a seizure on Wednesday, August 09. She complains of persistent head pain and dizziness. I have ordered half doses of Phenergan and Benadryl as well as CT of the head with anticipation of discharge once the CT is cleared. Progress Note #2: Progress Note CT of the head demonstrated no injuries. Patient's pain and nausea were satisfactorily treated, and she was discharged home. (WARD MUNGUIA MD) ECG Initial ECG Impression Date: Aug 11, 2021 Initial ECG Impression Time: 10:45 Initial ECG Rate: 73 Initial ECG Rhythm: Normal Sinus Initial ECG Intervals: Normal Initial ECG Impression: Normal Initial ECG Comparisson: Unchanged Comment Normal sinus rhythm without clinically relevant ST elevation or depression. LVH. (LATANYA GOODEN) Diagnostic Imaging Diagonstic Imaging: CT Plain Films/CT/US/NM/MRI: head Comments NAME: VALENTE HARPER MED REC#: [id number] PT STATUS: DEP ER : 1960 PHYSICIAN: WARD MUNGUIA MD ADMIT DATE: 08/11/21/ER Signed Date of Exam:08/11/21 CT HEAD WO EXAMINATION: CT head without contrast. TECHNIQUE: Multiple contiguous axial images were obtained through the brain without the use of intravenous contrast. All CT scans use one or more of the following dose optimizing techniques: automated exposure control, MA and/or KvP adjustment based on patient size and exam type or iterative reconstruction. HISTORY: Fall, closed head injury, dizzy COMPARISON: 08/24/2020 FINDINGS: The anand-white matter differentiation is normal. No mass effect or midline shift. There is age related cerebral atrophy with ex vacuo dilation of the ventricles. Basilar cisterns are patent. There are no intra- or extra-axial fluid collections. There is no intracranial hemorrhage. The orbits are normal. Paranasal sinuses are normal. Mastoid air cells are clear. No soft tissue abnormality is seen. No osseus lesions or fractures are seen. IMPRESSION: 1. No acute intracranial abnormality. Dictated by: Dictated on workstation # [id number] Dict: 08/11/212016 Trans: 08/11/212138 [facility] [id number] Interpreted by: YOBANI NAVA MD Electronically signed by: YOBANI NAVA MD 08/11/212138 (WARD MUNGUIA MD) Departure Impression Primary Impression: Hyperglycemia Additional Impressions: Dehydration Closed head injury Qualified Codes: S09.90XA - Unspecified injury of head, initial encounter Nausea Restless leg syndrome Disposition: 01 HOME, SELF-CARE Condition: Stable Departure-Patient Inst. Decision time for Depature: 20:38 (WARD MUNGUIA MD) Referrals: CINDY CALABRESE DO (PCP/Family) Primary Care Physician Patient Instructions: High Blood Sugar, Adult ED Add. Discharge Instructions: Return home and immediately check your blood sugar. Use insulin as previously directed by your physician to manage your oscillating blood sugars. Follow-up with your primary care provider soon as possible. Call with questions or concerns. Return to the ER if you have worsening symptoms. Copy Copies To 1: CINDY CALABRESE TITUS J Aug 11, 2021 10:31 WARD MUNGUIA MD Aug 11, 2021 19:48
[2021-08-11 10:40] LABS: BASOPHILS # (AUTO) 0.1 10^3/uL (0.0-0.1); BASOPHILS % (AUTO) 1 % (0-10); EOSINOPHILS # (AUTO) 0.2 10^3/uL (0.0-0.3); EOSINOPHILS % (AUTO) 2 % (0-10); HEMATOCRIT 33 % (35-52); HEMOGLOBIN 10.7 g/dL (11.5-16.0); LYMPHOCYTES # (AUTO) 1.6 10^3/uL (1.0-4.0); LYMPHOCYTES % (AUTO) 18 % (12-44); MEAN CORPUSCULAR HEMOGLOBIN 29 pg (25-34); MEAN CORPUSCULAR HGB CONC 32 g/dL (32-36); MEAN CORPUSCULAR VOLUME 89 fL (80-99); MEAN PLATELET VOLUME 11.5 fL (9.0-12.2); MONOCYTES # (AUTO) 0.5 10^3/uL (0.0-1.0); MONOCYTES % (AUTO) 5 % (0-12); NEUTROPHILS # (AUTO) 6.5 10^3/uL (1.8-7.8); NEUTROPHILS % (AUTO) 74 % (42-75); PLATELET COUNT 258 10^3/uL (130-400); WHITE BLOOD COUNT 8.9 10^3/uL (4.3-11.0)
[2021-08-11 10:51] LABS: ALBUMIN 3.3 GM/DL (3.2-4.5); CHLORIDE 95 MMOL/L (98-107); POTASSIUM 4.5 MMOL/L (3.6-5.0)
[2021-08-11 10:52] LABS: CALCIUM 8.1 MG/DL (8.5-10.1)
[2021-08-11 10:53] LABS: TOTAL PROTEIN 6.5 GM/DL (6.4-8.2)
[2021-08-11 10:54] LABS: CARBON DIOXIDE 20 MMOL/L (21-32)
[2021-08-11 10:55] LABS: BILIRUBIN,TOTAL 0.4 MG/DL (0.1-1.0)
[2021-08-11 10:57] LABS: ALKALINE PHOSPHATASE 124 U/L (40-136); CREATININE SERUM 1.96 MG/DL (0.60-1.30); GFR ESTIMATED 26
[2021-08-11 10:58] LABS: BUN/CREATININE RATIO 13
[2021-08-11 11:00] LABS: ALANINE AMINOTRANSFERASE 19 U/L (0-55)
[2021-08-11] MEDS ORDERED: PROMETHAZINE INJ 25 MG/ML (PHENERGAN) AMP IVP ONE ×2 (11:00→19:45)
[2021-08-11] MEDS ORDERED: diphenhydrAMINE 50 MG/ML INJ (BENADRYL) IVP ONE ×3 (11:00→19:45)
[2021-08-11 11:14] LABS: BILIRUBIN,URINE NEGATIVE (NEGATIVE); CLARITY,URINE CLEAR; COLOR,URINE YELLOW; GLUCOSE, URINE (UA) 3+ (NEGATIVE); KETONES,URINE NEGATIVE (NEGATIVE); LEUKOCYTE ESTERASE ,URINE NEGATIVE (NEGATIVE); NITRITE,URINE NEGATIVE (NEGATIVE); PH,URINE 6.5 (5-9); PROTEIN,URINE 2+ (NEGATIVE)
[2021-08-11 11:21] LABS: SODIUM 126 MMOL/L (135-145)
[2021-08-11 11:29] LABS: BACTERIA,URINE NEGATIVE /HPF; SQUAMOUS EPITHELIAL CELL,UR RARE /HPF
[2021-08-11 11:31] LABS: GLUCOSE 1067 MG/DL (70-105)
[2021-08-11] MEDS ORDERED: morphine INJ 10 MG/ML 1ML (SYR OR VIAL) IVP STA (12:18)
[2021-08-11] MEDS ORDERED: inSUlin (REGULAR) HUMAN 1 UNIT/0.01 ML (CHARGE PER UNIT) SC ONE (13:15)
[2021-08-11] MEDS ORDERED: DEXTROSE 50% 50 ML (IMS) SYR IV ONE (16:30)
[2021-08-11] MEDS ORDERED: ONDANSETRON 4 MG/2 ML (SDV) Z0FRAN ONE (20:00)
--- NOTE | 2021-08-11 20:24 | Diagnostic Imaging Report ---
EXAMINATION: CT head without contrast. TECHNIQUE: Multiple contiguous axial images were obtained through the brain without the use of intravenous contrast. All CT scans use one or more of the following dose optimizing techniques: automated exposure control, MA and/or KvP adjustment based on patient size and exam type or iterative reconstruction. HISTORY: Fall, closed head injury, dizzy COMPARISON: 08/24/2020 FINDINGS: The anand-white matter differentiation is normal. No mass effect or midline shift. There is age related cerebral atrophy with ex vacuo dilation of the ventricles. Basilar cisterns are patent. There are no intra- or extra-axial fluid collections. There is no intracranial hemorrhage. The orbits are normal. Paranasal sinuses are normal. Mastoid air cells are clear. No soft tissue abnormality is seen. No osseus lesions or fractures are seen. IMPRESSION: 1. No acute intracranial abnormality. Dictated by: Dictated on workstation # [id number]
[2021-08-11] MEDS ORDERED: oxyCODONE/APAP 5/325MG (PERCOCET 5) TABLET PO ONE (20:45)
[2021-08-11 20:55] VITALS: BP 186/86
== END 2021-08-11 20:55 | disposition home or self-care (01) ==
LOC: EDUNIT# 10:20 → ER 10:21
DX: S09.90XA Unspecified injury of head, initial encounter (principal); E11.65 Type 2 diabetes mellitus with hyperglycemia; G25.81 Restless legs syndrome; G47.30 Sleep apnea, unspecified; I10 Essential (primary) hypertension; K21.9 Gastro-esophageal reflux disease without esophagitis; E78.00 Pure hypercholesterolemia, unspecified; I25.10 Atherosclerotic heart disease of native coronary artery without angina pectoris; G89.29 Other chronic pain; M54.9 Dorsalgia, unspecified; Z79.4 Long term (current) use of insulin; Z79.891 Long term (current) use of opiate analgesic; Z79.82 Long term (current) use of aspirin; W22.8XXA Striking against or struck by other objects, initial encounter
CPT/HCPCS: 36415; 70450; 80053; 81000; 82947; 84484; 85025; 86141; 93005; 96372; 96374; 96375; 96376

== ENCOUNTER 2021-09-06 20:38 | Emergency (ER) | payer MEDICARE ==
[~2021-09-06 20:38] MED LIST changes: -DOXY100C2 PO; +DOXY100C5 PO
[2021-09-06 20:40] VITALS: BP 129/71
--- NOTE | 2021-09-06 20:42 | ED General ---
General Chief Complaint: Glucose Problems Stated Complaint: HIGH BS Source of Information: Patient Exam Limitations: No Limitations History of Present Illness Date Seen by Provider: Sep 06, 2021 Time Seen by Provider: 20:41 Initial Comments to ER by EMS with high blood sugar and bilateral leg pain. EMS initiated IV fluids, gave Phenergan in route. Timing/Duration: 1-2 Days Severity: Moderate Associated Systoms: Nausea/Vomiting Allergies and Home Medications Allergies Coded Allergies: ketorolac (Verified Allergy, Severe, ANAPHYLAXIS, PT TAKES ASA AT HOME, 03/06/19) scopolamine (Verified Allergy, Mild, Rash, 03/21/19) exenatide (Verified Allergy, Unknown, NAUSEA, 03/06/19) NON STOP VOMITING latex (Verified Allergy, Unknown, RASH, 03/06/19) metoclopramide (Verified Allergy, Unknown, RESTLESS LEGS, 03/06/19) erythromycin base (Verified Adverse Reaction, Unknown, 03/21/19) Patient Home Medication List Home Medication List Reviewed: Yes Amlodipine Besylate (Amlodipine Besylate) 10 Mg Tablet, 10 MG PO DAILY, (Rep orted) Entered as Reported by: NAEL ABDI on 05/15/21 1506 Aspirin (Aspirin EC) 81 Mg Tablet.dr, 81 MG PO DAILY, (Reported) Entered as Reported by: NAEL ABDI on 04/10/21 1009 Atorvastatin Calcium (Atorvastatin Calcium) 20 Mg Tablet, 20 MG PO HS, (Reported) Entered as Reported by: NAEL BADI on 07/18/20 1357 Gabapentin (Gabapentin) 800 Mg Tablet, 1,600 MG PO HS, (Reported) Entered as Reported by: DUSTY WINN on 12/17/19 1019 Gabapentin (Gabapentin) 800 Mg Tablet, 800 MG PO DAILY, (Reported) Entered as Reported by: DENISSE JOE on 03/29/20 1053 Insulin Aspart (Novolog Flexpen) 300 Units/3 Ml Solution, UNITS SQ TIDWM, (Reported) Entered as Reported by: NAEL ABDI on 04/30/21 1235 Insulin Determir (Levemir) 1,000 Units/10 Ml Soln, 15 UNIT SQ HS Prescribed by: GERARDO RITTER on 07/16/21 1013 Magnesium Oxide (Magnesium) 400 Mg Tablet, 400 MG PO HS, (Reported) Entered as Reported by: AMELIA BOSS on 07/14/21 1131 Metoprolol Succinate (Metoprolol Succinate) 100 Mg Tab.er.24h, 100 MG PO DAILY, (Reported) Entered as Reported by: NAEL ABDI on 05/15/21 1506 Oxycodone HCl (Oxycodone HCl) 15 Mg Tablet, 15 MG PO QID PRN for PAIN-SEVERE (8- 10), (Reported) Entered as Reported by: NAEL ABDI on 04/10/21 1009 Pantoprazole Sodium (Pantoprazole Sodium) 40 Mg Tablet.dr, 40 MG PO BIDAC, (Repo rted) Entered as Reported by: NAEL ABDI on 04/10/21 1009 Review of Systems Review of Systems Constitutional: see HPI EENTM: see HPI Respiratory: no symptoms reported Cardiovascular: no symptoms reported Genitourinary: no symptoms reported Musculoskeletal: no symptoms reported Skin: no symptoms reported Psychiatric/Neurological: No Symptoms Reported Past Dkjmhlr-Aboeve-Nyohbt Hx Immunizations Up To Date Tetanus Booster (TDap): Unknown PED Vaccines UTD: No First/Initial COVID19 Vaccinat: January 2021 Second COVID19 Vaccination Sharif: February 2021 Seasonal Allergies Seasonal Allergies: Yes Past Medical History Surgery/Hospitalization HX: PORT RIGHT CHEST, LOOP RECORDER, STENTS Surgeries: Yes (EGD and colonoscopy) Cardiac, Coronary Stent, Ear Surgery, Gallbladder, Orthopedic, Renal Respiratory: Yes Chronic Bronchitis, Sleep Apnea Currently Using CPAP: No Currently Using BIPAP: No Cardiac: Yes (DVT'S IN ARMS; CARDIAC STENT X 1; CAROTID DISEASE;LINQ DEVICE;SEVERE PAD) Chronic Edema/Swelling, Coronary Artery Disease, Deep Vein Thrombosis, High Cholesterol, Hypertension, Palpitations, Peripheral Vascular Neurological: Yes (NEUROPATHY IN HANDS AND FEET) Headaches /Migraines, Neuropathy Reproductive Disorders: No 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 Disorders: Denies DEDICATED [employer] History: Menopausal Sexually Transmitted Disease: No HIV/AIDS: No Genitourinary: Yes Bladder Infection, Kidney Stones, Renal Failure Gastrointestinal: Yes Gastroesophageal Reflux Musculoskeletal: Yes (CHRONIC GENERALIZED PAIN;CHRONIC BILAT SHOULDER PAIN;CHRONIC NECK PAIN ) Degenerate Disk Disease, Fibromyalgia, Chronic Back Pain Endocrine: Yes (NON-COMPLAINT;MULTIPLE EPISODES OF DKA-EASILY CONTROLLED ON INSULIN IN HOSP) Diabetes, Insulin dep HEENT: Yes (GLASSES; S/P BMT'S;BILAT CATARACT SURGERY 10/2020) Cataract, Chronic Ear Infection Loss of Vision: Bilateral Hearing Impairment: Hard of Hearing Cancer: No Psychosocial: Yes Anxiety Integumentary: Yes Psoriasis Blood Disorders: No Adverse Reaction/Blood Tranf: No Family Medical History Cancer of mouth 19 FATHER ( of esophogeal cancer.) Cardiovascular disease 19 MOTHER G8 BROTHER Completed stroke 19 FATHER G8 BROTHER Diabetes mellitus G8 BROTHER FH: lung cancer 19 MOTHER Hypertension 19 FATHER Kidney disease 19 FATHER Myocardial infarction 19 MOTHER G8 BROTHER Respiratory disorder No Family History of: AIDS Cancer, Diabetes, Hypertension SOCIAL HISTORY: -ETOH--RARELY USES -DRUGS--Rx NARCOTIC ABUSE -SMOKES 1 PPD PSH: -LINQ DEVICE PLACED 11/09/19 FOR REPORTED PALPITATIONS X 6 MONTHS, SINCE PERCOCET WAS DC'D -MULTIPLE CARDIAC CATHS--STENT X 1 TO LAD 07/13/15. LAST CATH 01/18/19--NO INTERVENTION -LUMBAR SPINE FUSION X 3--12/2002, 04/2007, AND 05/2007 -LUMBAR DISCECTOMY 10/2000--? LAMINECTOMY? -CERVICAL SPINE FUSION 11/2006 -CHOLECYSTECTOMY 1984 -BMT'S -LITHOTRIPSY AND RIGHT URETERAL STENT -EGD'S WITH ESOPHAGEAL DILATIONS -COLONOSCOPIES, LAST ONE 03/08/19 -PORT RIGHT CHEST -LEFT SHOULDER ROTATOR CUFF REPAIR 05/01/20--DR. PALACIOS -CONTINUOUS GLUCOSE MONITOR PRESENT 06/25/20--LLQ OF ABDOMEN--NOT PRESENT 10/2020 -BILATERAL CATARACT SURGERY 10/2020 -PERIPHERAL ANGIOGRAM 05/02/[address] FELIX: SEVERE BILATERAL SUPERFICIAL FEMORAL ARTERY DISEASE AND RECOMMENDED BILATERAL FEMORAL-POPLITEAL SURGERY--REFERRED TO DR. SAWYER AT [facility] HISTORY OF EXTREME NON-COMPLIANCE IN ALL ASPECTS OF CARE Physical Exam Vital Signs Vital Signs - First Documented 09/06/21 20:40 Temp 37.0 Pulse 78 Resp 18 B/P (MAP) 129/71 (90) Pulse Ox 97 O2 Delivery Room Air Capillary Refill : Height, Weight, BMI Height: 5'1.00" Weight: 122lbs. 1.0oz. [id number]; 25.00 BMI Method:Estimated General Appearance: No Apparent Distress, WD/WN, Chronically ill Eyes: Bilateral Eye Normal Inspection, Bilateral Eye PERRL Neck: Full Range of Motion, Normal Inspection Respiratory: No Accessory Muscle Use, No Respiratory Distress Cardiovascular: Regular Rate, Rhythm, Normal Peripheral Pulses Gastrointestinal: Normal Bowel Sounds, Non Tender, Soft Extremity: Normal Capillary Refill, Normal Inspection, Other (Palpable posterior tibial pulse bilaterally both feet are warm) Neurologic/Psychiatric: Alert, Oriented x3 Skin: Normal Color, Warm/Dry Progress/Results/Core Measures Suspected Sepsis SIRS Temperature: Pulse: Respiratory Rate: Laboratory Tests 09/06/21 20:55: White Blood Count 8.7 Blood Pressure / Mean: Laboratory Tests 09/06/21 20:55: Creatinine 1.91H, Platelet Count 289, Total Bilirubin 0.2 Results/Orders Lab Results Laboratory Tests Test 09/06/21 20:55 09/06/21 21:10 Range/Units White Blood Count 8.7 4.3-11.0 10^3/uL Red Blood Count 3.42 L 3.80-5.11 10^6/uL Hemoglobin 9.6 L 11.5-16.0 g/dL Hematocrit 31 L 35-52 % Mean Corpuscular Volume 89 80-99 fL Mean Corpuscular Hemoglobin 28 25-34 pg Mean Corpuscular Hemoglobin Concent 32 32-36 g/dL Red Cell Distribution Width 13.8 10.0-14.5 % Platelet Count 289 130-400 10^3/uL Mean Platelet Volume 10.7 9.0-12.2 fL Immature Granulocyte % (Auto) 1 % Neutrophils (%) (Auto) 74 42-75 % Lymphocytes (%) (Auto) 20 12-44 % Monocytes (%) (Auto) 4 0-12 % Eosinophils (%) (Auto) 1 0-10 % Basophils (%) (Auto) 1 0-10 % Neutrophils # (Auto) 6.4 1.8-7.8 10^3/uL Lymphocytes # (Auto) 1.7 1.0-4.0 10^3/uL Monocytes # (Auto) 0.3 0.0-1.0 10^3/uL Eosinophils # (Auto) 0.1 0.0-0.3 10^3/uL Basophils # (Auto) 0.1 0.0-0.1 10^3/uL Immature Granulocyte # (Auto) 0.0 0.0-0.1 10^3/uL Sodium Level 120 *L 135-145 MMOL/L Potassium Level 4.8 3.6-5.0 MMOL/L Chloride Level 92 L 98-107 MMOL/L Carbon Dioxide Level 16 L 21-32 MMOL/L Anion Gap 12 5-14 MMOL/L Blood Urea Nitrogen 26 H 7-18 MG/DL Creatinine 1.91 H 0.60-1.30 MG/DL Estimat Glomerular Filtration Rate 27 BUN/Creatinine Ratio 14 Glucose Level 1082 *H 70-105 MG/DL Calcium Level 8.3 L 8.5-10.1 MG/DL Corrected Calcium 9.3 8.5-10.1 MG/DL Total Bilirubin 0.2 0.1-1.0 MG/DL Aspartate Amino Transf (AST/SGOT) 19 5-34 U/L Alanine Aminotransferase (ALT/SGPT) 13 0-55 U/L Alkaline Phosphatase 95 40-136 U/L Total Protein 6.4 6.4-8.2 GM/DL Albumin 2.8 L 3.2-4.5 GM/DL Beta-Hydroxybutyrate (Chem panel) 0.06 0.00-0.27 MMOL/L Urine Color YELLOW Urine Clarity CLEAR Urine pH 7.0 5-9 Urine Specific [place] 1.010 L 1.016-1.022 Urine Protein 2+ H NEGATIVE Urine Glucose (UA) 3+ H NEGATIVE Urine Ketones NEGATIVE NEGATIVE Urine Nitrite NEGATIVE NEGATIVE Urine Bilirubin NEGATIVE NEGATIVE Urine Urobilinogen 0.2 < = 1.0 MG/DL Urine Leukocyte Esterase NEGATIVE NEGATIVE Urine RBC (Auto) NEGATIVE NEGATIVE Urine RBC NONE /HPF Urine WBC NONE /HPF Urine Squamous Epithelial Cells RARE /HPF Urine Crystals NONE /LPF Urine Bacteria NEGATIVE /HPF Urine Casts NONE /LPF Urine Mucus NEGATIVE /LPF Urine Culture Indicated NO My Orders Orders - JR MARIE APRN Accucheck Stat ONCE (09/06/21 20:39) Insulin (Regular) Human (Novolin R (Per (09/06/21 20:45) Cbc With Automated Diff (09/06/21 20:39) Comprehensive Metabolic Panel (09/06/21 20:39) Beta Hydroxybutyrate (09/06/21 20:39) Ed Iv/Invasive Line Start (09/06/21 20:39) Ua Culture If Indicated (09/06/21 20:44) Medications Given in ED Current Medications Medications Dose Ordered Sig/Jackie Route Start Time Stop Time Status Last Admin Dose Admin Insulin Human Regular 10 unit ONCE ONCE IV 09/06/21 20:45 09/06/21 20:46 DC 09/06/21 20:56 10 UNIT Vital Signs/I&O 09/06/21 20:40 Temp 37.0 Pulse 78 Resp 18 B/P (MAP) 129/71 (90) Pulse Ox 97 O2 Delivery Room Air Capillary Refill : Departure Communication (Admissions) [id number]-patient is demanding Benadryl IV rapid push. She states that the Phenergan has caused her legs to be restless. I offered her Benadryl to be put in the bag of fluids but she becomes irate. She asks if she is in DKA and I informed her that she is not. At that point she states "we will sign me out of here then!" And attempts to remove her own port access. She agreed to sign out AGAINST MEDICAL ADVICE form and we discussed the risks of leaving and benefits of staying. Impression Primary Impression: Hyperglycemia due to type 2 diabetes mellitus Disposition: AGAINST MEDICAL ADVICE Condition: Against Medical Advice Departure-Patient Inst. Referrals: CINDY CALABRESE DO (PCP/Family) Primary Care Physician JR MARIE PIZZA MAKER Sep 06, 2021 20:42
[2021-09-06] MEDS ORDERED: inSUlin (REGULAR) HUMAN 1 UNIT/0.01 ML (CHARGE PER UNIT) IV ONE (20:45)
[2021-09-06 21:01] LABS: BASOPHILS # (AUTO) 0.1 10^3/uL (0.0-0.1); BASOPHILS % (AUTO) 1 % (0-10); EOSINOPHILS # (AUTO) 0.1 10^3/uL (0.0-0.3); EOSINOPHILS % (AUTO) 1 % (0-10); HEMATOCRIT 31 % (35-52); HEMOGLOBIN 9.6 g/dL (11.5-16.0); LYMPHOCYTES # (AUTO) 1.7 10^3/uL (1.0-4.0); LYMPHOCYTES % (AUTO) 20 % (12-44); MEAN CORPUSCULAR HEMOGLOBIN 28 pg (25-34); MEAN CORPUSCULAR HGB CONC 32 g/dL (32-36); MEAN CORPUSCULAR VOLUME 89 fL (80-99); MEAN PLATELET VOLUME 10.7 fL (9.0-12.2); MONOCYTES # (AUTO) 0.3 10^3/uL (0.0-1.0); MONOCYTES % (AUTO) 4 % (0-12); NEUTROPHILS # (AUTO) 6.4 10^3/uL (1.8-7.8); NEUTROPHILS % (AUTO) 74 % (42-75); PLATELET COUNT 289 10^3/uL (130-400); WHITE BLOOD COUNT 8.7 10^3/uL (4.3-11.0)
[2021-09-06 21:13] LABS: ALBUMIN 2.8 GM/DL (3.2-4.5); POTASSIUM 4.8 MMOL/L (3.6-5.0)
[2021-09-06 21:15] LABS: CALCIUM 8.3 MG/DL (8.5-10.1)
[2021-09-06 21:16] LABS: BILIRUBIN,URINE NEGATIVE (NEGATIVE); CLARITY,URINE CLEAR; COLOR,URINE YELLOW; GLUCOSE, URINE (UA) 3+ (NEGATIVE); KETONES,URINE NEGATIVE (NEGATIVE); LEUKOCYTE ESTERASE ,URINE NEGATIVE (NEGATIVE); NITRITE,URINE NEGATIVE (NEGATIVE); PROTEIN,URINE 2+ (NEGATIVE)
[2021-09-06 21:16] LABS: TOTAL PROTEIN 6.4 GM/DL (6.4-8.2)
[2021-09-06 21:18] LABS: BILIRUBIN,TOTAL 0.2 MG/DL (0.1-1.0)
[2021-09-06 21:20] LABS: CREATININE SERUM 1.91 MG/DL (0.60-1.30)
[2021-09-06 21:27] LABS: BACTERIA,URINE NEGATIVE /HPF; SQUAMOUS EPITHELIAL CELL,UR RARE /HPF
== END 2021-09-06 22:13 | disposition left against medical advice (07) ==
LOC: ER 20:38 → EDUNIT# 20:38 → ER 22:13
DX: E11.65 Type 2 diabetes mellitus with hyperglycemia (principal); G47.30 Sleep apnea, unspecified; I10 Essential (primary) hypertension; K21.9 Gastro-esophageal reflux disease without esophagitis; I25.10 Atherosclerotic heart disease of native coronary artery without angina pectoris; E78.00 Pure hypercholesterolemia, unspecified; G89.29 Other chronic pain; M54.9 Dorsalgia, unspecified; Z79.4 Long term (current) use of insulin; Z79.899 Other long term (current) drug therapy; Z79.891 Long term (current) use of opiate analgesic; Z79.82 Long term (current) use of aspirin
CPT/HCPCS: 36415; 80053; 81000; 82010; 85025

== ENCOUNTER 2021-09-13 21:19 | Inpatient (IN) | payer MEDICARE ==
[~2021-09-13] VITALS: Ht 152.4 cm; Wt 55.2 kg
--- NOTE | 2021-09-13 21:37 | ED Abdominal Pain ---
General Stated Complaint: LOW BLOOD SUGAR Source of Information: Patient, EMS Exam Limitations: No Limitations History of Present Illness Date Seen by Provider: Sep 13, 2021 Time Seen by Provider: 21:32 Initial Comments To ER by EMS from home with reports of hypoglycemia and abdominal/back pain. She reportedly took 4 Percocet within the past few hours for her abdomen and back pain. Uncertain how much insulin she took or when. No vomiting. EMS found her to be hypoglycemic with a blood sugar of 39. They initiated IV access and started a D10 infusion. Upon arrival to ER her sugar is up to 94. She did have some hypotension in route and subsequently they initiated a bag of IV fluids. On arrival to ER patient complains of severe mid back and abdominal pain worse with any movement. Timing/Duration: 1-2 Days Severity/Quality: Moderate Location: Generalized Abdomen Radiation: No Radiation Activities at Onset: None Associated Symptoms: Nausea/Vomiting Allergies and Home Medications Allergies Coded Allergies: ketorolac (Verified Allergy, Severe, ANAPHYLAXIS, PT TAKES ASA AT HOME, 03/06/19) scopolamine (Verified Allergy, Mild, Rash, 03/21/19) exenatide (Verified Allergy, Unknown, NAUSEA, 03/06/19) NON STOP VOMITING latex (Verified Allergy, Unknown, RASH, 03/06/19) metoclopramide (Verified Allergy, Unknown, RESTLESS LEGS, 03/06/19) erythromycin base (Verified Adverse Reaction, Unknown, 03/21/19) Patient Home Medication List Home Medication List Reviewed: Yes Amlodipine Besylate (Amlodipine Besylate) 10 Mg Tablet, 10 MG PO DAILY, (Reported) Entered as Reported by: NAEL ABDI on 05/15/21 1506 Aspirin (Aspirin EC) 81 Mg Tablet.dr, 81 MG PO DAILY, (Reported) Entered as Reported by: NAEL ABDI on 04/10/21 1009 Atorvastatin Calcium (Atorvastatin Calcium) 20 Mg Tablet, 20 MG PO HS, (Reported) Entered as Reported by: NAEL ABDI on 07/18/20 1357 Gabapentin (Gabapentin) 800 Mg Tablet, 1,600 MG PO HS, (Reported) Entered as Reported by: DUSTY WINN on 12/17/19 1019 Gabapentin (Gabapentin) 800 Mg Tablet, 800 MG PO DAILY, (Reported) Entered as Reported by: DENISSE JOE on 03/29/20 1053 Insulin Aspart (Novolog Flexpen) 300 Units/3 Ml Solution, UNITS SQ TIDWM, (Reported) Entered as Reported by: NAEL ABDI on 04/30/21 1235 Insulin Determir (Levemir) 1,000 Units/10 Ml Soln, 15 UNIT SQ HS Prescribed by: GERARDO RITTER on 07/16/21 1013 Magnesium Oxide (Magnesium) 400 Mg Tablet, 400 MG PO HS, (Reported) Entered as Reported by: AMELIA BOSS on 07/14/21 1131 Metoprolol Succinate (Metoprolol Succinate) 100 Mg Tab.er.24h, 100 MG PO DAILY, (Reported) Entered as Reported by: NAEL ABDI on 05/15/21 1506 Oxycodone HCl (Oxycodone HCl) 15 Mg Tablet, 15 MG PO QID PRN for PAIN-SEVERE (8-10), (Reported) Entered as Reported by: NAEL ABDI on 04/10/21 1009 Pantoprazole Sodium (Pantoprazole Sodium) 40 Mg Tablet.dr, 40 MG PO BIDAC, (Reported) Entered as Reported by: NAEL ABDI on 04/10/21 1009 Review of Systems Review of Systems Constitutional: see HPI EENTM: No Symptoms Reported Respiratory: No Symptoms Reported Cardiovascular: No Symptoms Reported Gastrointestinal: See HPI, Abdominal Pain Genitourinary: No Symptoms Reported Musculoskeletal: see HPI, back pain Skin: no symptoms reported Psychiatric/Neurological: No Symptoms Reported Endocrine: No Symptoms Reported Past Vivbbnp-Stdwmo-Qearvl Hx Immunizations Up To Date Tetanus Booster (TDap): Unknown PED Vaccines UTD: No First/Initial COVID19 Vaccinat: January 2021 Second COVID19 Vaccination Sharif: February 2021 Seasonal Allergies Seasonal Allergies: Yes Past Medical History Surgery/Hospitalization HX: PORT RIGHT CHEST, LOOP RECORDER, STENTS Surgeries: Yes (EGD and colonoscopy) Cardiac, Coronary Stent, Ear Surgery, Gallbladder, Orthopedic, Renal Respiratory: Yes Chronic Bronchitis, Sleep Apnea Currently Using CPAP: No Currently Using BIPAP: No Cardiac: Yes (DVT'S IN ARMS; CARDIAC STENT X 1; CAROTID DISEASE;LINQ DEVICE;SEVERE PAD) Chronic Edema/Swelling, Coronary Artery Disease, Deep Vein Thrombosis, High Cholesterol, Hypertension, Palpitations, Peripheral Vascular Neurological: Yes (NEUROPATHY IN HANDS AND FEET) Headaches /Migraines, Neuropathy Reproductive Disorders: No 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 Disorders: Denies 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 Sexually Transmitted Disease: No HIV/AIDS: No Genitourinary: Yes Bladder Infection, Kidney Stones, Renal Failure Gastrointestinal: Yes Gastroesophageal Reflux Musculoskeletal: Yes (CHRONIC GENERALIZED PAIN;CHRONIC BILAT SHOULDER PAIN;CHRONIC NECK PAIN ) Degenerate Disk Disease, Fibromyalgia, Chronic Back Pain Endocrine: Yes (NON-COMPLAINT;MULTIPLE EPISODES OF DKA-EASILY CONTROLLED ON INSULIN IN HOSP) Diabetes, Insulin dep HEENT: Yes (GLASSES; S/P BMT'S;BILAT CATARACT SURGERY 10/2020) Cataract, Chronic Ear Infection Loss of Vision: Bilateral Hearing Impairment: Hard of Hearing Cancer: No Psychosocial: Yes Anxiety Integumentary: Yes Psoriasis Blood Disorders: No Adverse Reaction/Blood Tranf: No Family Medical History Cancer of mouth 19 FATHER ( of esophogeal cancer.) Cardiovascular disease 19 MOTHER G8 BROTHER Completed stroke 19 FATHER G8 BROTHER Diabetes mellitus G8 BROTHER FH: lung cancer 19 MOTHER Hypertension 19 FATHER Kidney disease 19 FATHER Myocardial infarction 19 MOTHER G8 BROTHER Respiratory disorder No Family History of: AIDS Cancer, Diabetes, Hypertension SOCIAL HISTORY: -ETOH--RARELY USES -DRUGS--Rx NARCOTIC ABUSE -SMOKES 1 PPD PSH: -LINQ DEVICE PLACED 11/09/19 FOR REPORTED PALPITATIONS X 6 MONTHS, SINCE PERCOCET WAS DC'D -MULTIPLE CARDIAC CATHS--STENT X 1 TO LAD 07/13/15. LAST CATH 01/18/19--NO INTERVENTION -LUMBAR SPINE FUSION X 3--12/2002, 04/2007, AND 05/2007 -LUMBAR DISCECTOMY 10/2000--? LAMINECTOMY? -CERVICAL SPINE FUSION 11/2006 -CHOLECYSTECTOMY 1983 -BMT'S -LITHOTRIPSY AND RIGHT URETERAL STENT -EGD'S WITH ESOPHAGEAL DILATIONS -COLONOSCOPIES, LAST ONE 03/08/19 -PORT RIGHT CHEST -LEFT SHOULDER ROTATOR CUFF REPAIR 05/01/20--DR. PALACIOS -CONTINUOUS GLUCOSE MONITOR PRESENT 06/25/20--LLQ OF ABDOMEN--NOT PRESENT 10/2020 -BILATERAL CATARACT SURGERY 10/2020 -PERIPHERAL ANGIOGRAM 05/02/[address] FELIX: SEVERE BILATERAL SUPERFICIAL FEMORAL ARTERY DISEASE AND RECOMMENDED BILATERAL FEMORAL-POPLITEAL SURGERY--REFERRED TO DR. SAWYER AT [facility] LONG HISTORY OF EXTREME NON-COMPLIANCE IN ALL ASPECTS OF CARE Physical Exam Vital Signs Vital Signs - First Documented Capillary Refill : Height/Weight/BMI Height: 5'1.00" Weight: 122lbs. 1.0oz. 55.151290dd; 25.00 BMI Method:Estimated General Appearance: thin, other (Oxygen 95% room air. Respiratory rate 10. Heart rate 74 sinus no ectopy. Blood pressure 99/51. IV fluids infusing, D10 stopped. She moans with adjusting the head of the bed up or down or with palpation of the abdomen. Bowel sounds are present abdomen is flat and soft.) Neck: non-tender, full range of motion Respiratory: no respiratory distress, no accessory muscle use Cardiovascular: regular rate, rhythm, no murmur Gastrointestinal: normal bowel sounds, soft, tenderness Back: normal inspection Neurologic/Psychiatric: alert, other (lethargic, moaning) Skin: normal color, warm/dry Focused Exam Lactate Level 09/13/21 21:28: Lactic Acid Level 1.55 Lactic Acid Level Laboratory Tests Test 09/13/21 21:28 Lactic Acid Level 1.55 MMOL/L (0.50-2.00) Progress/Results/Core Measures Results/Orders Lab Results Laboratory Tests Test 09/13/21 21:25 09/13/21 21:28 09/13/21 21:33 09/13/21 22:21 Range/Units Glucometer 94 70-110 MG/DL White Blood Count 18.4 H 4.3-11.0 10^3/uL Red Blood Count 3.01 L 3.80-5.11 10^6/uL Hemoglobin 8.4 L 11.5-16.0 g/dL Hematocrit 26 L 35-52 % Mean Corpuscular Volume 86 80-99 fL Mean Corpuscular Hemoglobin 28 25-34 pg Mean Corpuscular Hemoglobin Concent 32 32-36 g/dL Red Cell Distribution Width 14.6 H 10.0-14.5 % Platelet Count 448 H 130-400 10^3/uL Mean Platelet Volume 9.8 9.0-12.2 fL Immature Granulocyte % (Auto) 1 % Neutrophils (%) (Auto) 82 H 42-75 % Lymphocytes (%) (Auto) 13 12-44 % Monocytes (%) (Auto) 3 0-12 % Eosinophils (%) (Auto) 1 0-10 % Basophils (%) (Auto) 0 0-10 % Neutrophils # (Auto) 15.0 H 1.8-7.8 10^3/uL Lymphocytes # (Auto) 2.3 1.0-4.0 10^3/uL Monocytes # (Auto) 0.6 0.0-1.0 10^3/uL Eosinophils # (Auto) 0.2 0.0-0.3 10^3/uL Basophils # (Auto) 0.1 0.0-0.1 10^3/uL Immature Granulocyte # (Auto) 0.1 0.0-0.1 10^3/uL Neutrophils % (Manual) 83 % Lymphocytes % (Manual) 14 % Monocytes % (Manual) 3 % Percent Immature Platelet Fraction 2.5 0.0-7.6 % Blood Morphology Comment NORMAL Prothrombin Time 12.8 12.2-14.7 SEC INR Comment 0.9 0.8-1.4 Activated Partial Thromboplast Time 20 L 24-35 SEC Sodium Level 127 L 135-145 MMOL/L Potassium Level 4.8 3.6-5.0 MMOL/L Chloride Level 102 98-107 MMOL/L Carbon Dioxide Level 13 L 21-32 MMOL/L Anion Gap 12 5-14 MMOL/L Blood Urea Nitrogen 38 H 7-18 MG/DL Creatinine 2.99 H 0.60-1.30 MG/DL Estimat Glomerular Filtration Rate 16 BUN/Creatinine Ratio 13 Glucose Level 122 H 70-105 MG/DL Lactic Acid Level 1.55 0.50-2.00 MMOL/L Calcium Level 7.8 L 8.5-10.1 MG/DL Corrected Calcium 8.8 8.5-10.1 MG/DL Total Bilirubin 0.2 0.1-1.0 MG/DL Aspartate Amino Transf (AST/SGOT) 10 5-34 U/L Alanine Aminotransferase (ALT/SGPT) 11 0-55 U/L Alkaline Phosphatase 87 40-136 U/L Total Protein 6.1 L 6.4-8.2 GM/DL Albumin 2.7 L 3.2-4.5 GM/DL Lipase 76 8-78 U/L Acetaminophen Level < 10 L 10-30 UG/ML Serum Alcohol < 10 <10 MG/DL Urine Color YELLOW Urine Clarity CLEAR Urine pH 5.5 5-9 Urine Specific Gipsy 1.025 H 1.016-1.022 Urine Protein 3+ H NEGATIVE Urine Glucose (UA) 1+ H NEGATIVE Urine Ketones TRACE H NEGATIVE Urine Nitrite NEGATIVE NEGATIVE Urine Bilirubin NEGATIVE NEGATIVE Urine Urobilinogen 0.2 < = 1.0 MG/DL Urine Leukocyte Esterase NEGATIVE NEGATIVE Urine RBC (Auto) NEGATIVE NEGATIVE Urine RBC NONE /HPF Urine WBC 0-2 /HPF Urine Crystals PRESENT H /LPF Urine Amorphous Sediment MOD ANITAH URATES H /LPF Urine Bacteria TRACE /HPF Urine Casts PRESENT /LPF Urine Hyaline Casts 2-5 H /LPF Urine Mucus NEGATIVE /LPF Urine Culture Indicated NO Urine Opiates Screen NEGATIVE NEGATIVE Urine Oxycodone Screen POSITIVE H NEGATIVE Urine Methadone Screen NEGATIVE NEGATIVE Urine Propoxyphene Screen NEGATIVE NEGATIVE Urine Barbiturates Screen NEGATIVE NEGATIVE Ur Tricyclic Antidepressants Screen NEGATIVE NEGATIVE Urine Phencyclidine Screen NEGATIVE NEGATIVE Urine Amphetamines Screen NEGATIVE NEGATIVE Urine Methamphetamines Screen NEGATIVE NEGATIVE Urine Benzodiazepines Screen NEGATIVE NEGATIVE Urine Cocaine Screen NEGATIVE NEGATIVE Urine Cannabinoids Screen NEGATIVE NEGATIVE Test 09/13/21 22:23 09/13/21 22:42 Range/Units Glucometer 54 *L 158 H 70-110 MG/DL My Orders Orders - JR MARIE FAMILY RESOURCE SPECIALIST Cbc With Automated Diff (09/13/21 21:28) Comprehensive Metabolic Panel (09/13/21 21:28) Ua Culture If Indicated (09/13/21 21:28) Drug Screen Stat (Urine) (09/13/21 21:28) Alcohol (09/13/21 21:28) Blood Culture (09/13/21 21:28) Lactic Acid Analyzer (09/13/21 21:28) Ed Iv/Invasive Line Start (09/13/21 21:28) Chest 1 View, Ap/Pa Only (09/13/21 21:28) Lipase (09/13/21 21:29) Ed Iv/Invasive Line Start (09/13/21 21:29) Protime With Inr (09/13/21 21:29) Partial Thromboplastin Time (09/13/21 21:29) Bateman Cath (09/13/21 21:29) Ct Abdomen/Pelvis Wo (09/13/21 21:38) Manual Differential (09/13/21 21:28) Acetaminophen (09/13/21 22:04) Cefepime Injection (Maxipime Injection) (09/13/21 22:15) Lactated Ringers (Lr 1000 Ml Iv Solution (09/13/21 22:30) Procalcitonin (Pct) (09/13/21 22:18) Covid 19 Inhouse Test (09/13/21 22:18) D50w (Emergency) Syringe (Dextrose 50% 5 (09/13/21 22:30) D50w (Emergency) Syringe (Dextrose 50% 5 (09/13/21 22:25) Medications Given in ED Current Medications Medications Dose Ordered Sig/Jackie Route Start Time Stop Time Status Last Admin Dose Admin Cefepime HCl 1000 mg/Sterile Water 10 ml @ 200 mls/hr ONCE ONCE IV 09/13/21 22:15 09/13/21 22:17 DC 09/13/21 22:20 200 MLS/HR Dextrose 50 ml ONCE ONCE IV 09/13/21 22:30 09/13/21 22:31 DC 09/13/21 22:25 50 ML Vital Signs/I&O 09/13/21 09/13/21 21:21 21:21 Temp 37.2 37.2 Pulse 73 73 Resp 15 14 B/P (MAP) 99/51 (67) 99/51 Pulse Ox 96 96 O2 Delivery Room Air Room Air Departure Communication (Admissions) Family Conversation 2246-alert, heart rate 75, her blood sugar dropped to 54 so she received 25 g of dextrose IV with a resultant increase of blood sugar up to 158. Will initiate D5 NS. Discussed with Dr. Quintero will admit to ICU NAME: VALENTE HARPER MED REC#: [id number] PT STATUS: REG ER : 1960 PHYSICIAN: JR MARIE APRN ADMIT DATE: 09/13/21/ER Draft Date of Exam:09/13/21 CHEST 1 VIEW, AP/PA ONLY Indication: Altered mental status with dyspnea. Comparison: 06/12/2021. Discussion: Single portable upright view of the chest was obtained. Normal heart size. New perihilar infiltrates and right lung base infiltrates, likely pneumonia. No pleural fluid or pneumothorax. No osseous abnormality. Right-sided port and postoperative changes within the cervical spine are stable. Implantable loop recorder incidentally noted. Impression: New bilateral perihilar infiltrates and right lung base infiltrates, likely pneumonia. Dictated on workstation # [id number] Dict: 09/13/212213 Trans: 09/13/212215 [facility] [id number] Interpreted by: ALBINA HENSLEY MD Electronically signed by: NAME: VALENTE HARPER [facility] REC#: [id number] PT STATUS: REG ER : 1960 PHYSICIAN: JR MARIE APRN ADMIT DATE: 09/13/21/ER Draft Date of Exam:09/13/21 CT ABDOMEN/PELVIS WO Procedure: CT abdomen and pelvis without contrast. technique: Multiple contiguous axial images were obtained through the abdomen and pelvis without the use of intravenous contrast. Auto Exposure Controls were utilized during the CT exam to meet ALARA standards for radiation dose reduction. Indication: Generalized abdominal pain. Comparison: 06/25/2020. Discussion: Groundglass infiltrates within the lung bases, right greater than left, likely pneumonia, recommend clinical correlation for viral pneumonia. Mild cardiomegaly stable. No pleural or pericardial fluid. The gallbladder appears to be surgically absent, stable. The liver, pancreas, stomach, spleen, and adrenal glands are unremarkable. No renal stone or hydronephrosis. The aorta is normal in caliber and contains moderate atherosclerotic plaque. Urinary bladder is decompressed by a Bateman catheter. The uterus appears within normal limits for age. No obstruction, pneumatosis or pneumoperitoneum. No ascites or adenopathy. Mild anasarca noted within the body wall. Postoperative changes within the lumbar spine along with diffuse advanced degenerative disease throughout the visualized thoracic spine is stable. Impression: 1. Infiltrates within the lung bases suggests pneumonia. 2. Mild anasarca. Dictated on workstation # [id number] Dict: 09/13/212222 Trans: 09/13/212227 [facility] [id number] Interpreted by: ALBINA HENSLEY MD Electronically signed by: Impression Primary Impression: RLL pneumonia Additional Impression: Hypoglycemia Disposition: ADMITTED INPATIENT Condition: Stable Admissions Decision to Admit Reason: Admit from ER (General) Decision to Admit/Date: Sep 13, 2021 Time/Decision to Admit Time: 22:16 Departure-Patient Inst. Referrals: CINDY CALABRESE DO (PCP/Family) Primary Care Physician JR MARIE APRN Sep 13, 2021 21:37
[2021-09-13 21:38] LABS: EOSINOPHILS % (AUTO) 1 % (0-10); MONOCYTES % (AUTO) 3 % (0-12)
[2021-09-13 21:39] LABS: BASOPHILS # (AUTO) 0.1 10^3/uL (0.0-0.1); BASOPHILS % (AUTO) 0 % (0-10); EOSINOPHILS # (AUTO) 0.2 10^3/uL (0.0-0.3); HEMATOCRIT 26 % (35-52); HEMOGLOBIN 8.4 g/dL (11.5-16.0); LYMPHOCYTES # (AUTO) 2.3 10^3/uL (1.0-4.0); LYMPHOCYTES % (AUTO) 13 % (12-44); MEAN CORPUSCULAR HEMOGLOBIN 28 pg (25-34); MEAN CORPUSCULAR HGB CONC 32 g/dL (32-36); MEAN CORPUSCULAR VOLUME 86 fL (80-99); MEAN PLATELET VOLUME 9.8 fL (9.0-12.2); MONOCYTES # (AUTO) 0.6 10^3/uL (0.0-1.0); NEUTROPHILS % (AUTO) 82 % (42-75); PLATELET COUNT 448 10^3/uL (130-400); WHITE BLOOD COUNT 18.4 10^3/uL (4.3-11.0)
[2021-09-13 21:41] LABS: BILIRUBIN,URINE NEGATIVE (NEGATIVE); CLARITY,URINE CLEAR; COLOR,URINE YELLOW; GLUCOSE, URINE (UA) 1+ (NEGATIVE); KETONES,URINE TRACE (NEGATIVE); LEUKOCYTE ESTERASE ,URINE NEGATIVE (NEGATIVE); NITRITE,URINE NEGATIVE (NEGATIVE); PH,URINE 5.5 (5-9); PROTEIN,URINE 3+ (NEGATIVE)
[2021-09-13 21:51] LABS: ALBUMIN 2.7 GM/DL (3.2-4.5); CHLORIDE 102 MMOL/L (98-107); POTASSIUM 4.8 MMOL/L (3.6-5.0); SODIUM 127 MMOL/L (135-145)
[2021-09-13 21:52] LABS: CALCIUM 7.8 MG/DL (8.5-10.1)
[2021-09-13 21:52] LABS: AMORPHOUS SEDIMENT,UR MOD AMOR URATES /LPF; BACTERIA,URINE TRACE /HPF; WBC,URINE 0-2 /HPF
[2021-09-13 21:53] LABS: GLUCOSE 122 MG/DL (70-105)
[2021-09-13 21:54] LABS: CARBON DIOXIDE 13 MMOL/L (21-32); TOTAL PROTEIN 6.1 GM/DL (6.4-8.2)
[2021-09-13 21:55] LABS: AMPHETAMINE SCREEN, URINE NEGATIVE (NEGATIVE); BARBITURATE SCREEN URINE NEGATIVE (NEGATIVE); BENZODIAZEPINES SCREEN URINE NEGATIVE (NEGATIVE); CANNABINOID SCREEN, URINE NEGATIVE (NEGATIVE); COCAINE SCREEN URINE NEGATIVE (NEGATIVE); METHADONE STAT NEGATIVE (NEGATIVE); METHAMPHETAMINE SCREEN URINE S NEGATIVE (NEGATIVE); OPIATE SCREEN URINE NEGATIVE (NEGATIVE); OXYCODONE STAT POSITIVE (NEGATIVE); TRICYCLIC ANTIDEPRESSANTS SCRE NEGATIVE (NEGATIVE)
[2021-09-13 21:55] LABS: BILIRUBIN,TOTAL 0.2 MG/DL (0.1-1.0)
[2021-09-13 21:56] LABS: PROPOXYPHENE STAT NEGATIVE (NEGATIVE)
[2021-09-13 21:57] LABS: ALKALINE PHOSPHATASE 87 U/L (40-136); CREATININE SERUM 2.99 MG/DL (0.60-1.30); GFR ESTIMATED 16
[2021-09-13 21:58] LABS: BUN/CREATININE RATIO 13
[2021-09-13 22:00] LABS: ALANINE AMINOTRANSFERASE 11 U/L (0-55); LIPASE 76 U/L (8-78)
[2021-09-13 22:07] LABS: LYMPHOCYTES % (MANUAL) 14 %; MONOCYTES % (MANUAL) 3 %; NEUTROPHILS % (MANUAL) 83 %; RBC MORPH NORMAL
[2021-09-13 22:09] LABS: INR 0.9 (0.8-1.4); PROTHROMBIN TIME PATIENT 12.8 SEC (12.2-14.7)
[2021-09-13] MEDS ORDERED: CEFEPIME INJECTION 1,000 MG in WATER (STERILE) FOR INJECTION 10 ML IV ONE (22:15)
--- NOTE | 2021-09-13 22:16 | Diagnostic Imaging Report ---
Indication: Altered mental status with dyspnea. Comparison: 06/12/2021. Discussion: Single portable upright view of the chest was obtained. Normal heart size. New perihilar infiltrates and right lung base infiltrates, likely pneumonia. No pleural fluid or pneumothorax. No osseous abnormality. Right-sided port and postoperative changes within the cervical spine are stable. Implantable loop recorder incidentally noted. Impression: New bilateral perihilar infiltrates and right lung base infiltrates, likely pneumonia. Dictated by: Dictated on workstation # [id number]
[2021-09-13] MEDS ORDERED: DEXTROSE 50% 50 ML (IMS) SYR ONE (22:25)
--- NOTE | 2021-09-13 22:29 | Diagnostic Imaging Report ---
Procedure: CT abdomen and pelvis without contrast. technique: Multiple contiguous axial images were obtained through the abdomen and pelvis without the use of intravenous contrast. Auto Exposure Controls were utilized during the CT exam to meet ALARA standards for radiation dose reduction. Indication: Generalized abdominal pain. Comparison: 06/25/2020. Discussion: Groundglass infiltrates within the lung bases, right greater than left, likely pneumonia, recommend clinical correlation for viral pneumonia. Mild cardiomegaly stable. No pleural or pericardial fluid. The gallbladder appears to be surgically absent, stable. The liver, pancreas, stomach, spleen, and adrenal glands are unremarkable. No renal stone or hydronephrosis. The aorta is normal in caliber and contains moderate atherosclerotic plaque. Urinary bladder is decompressed by a Bateman catheter. The uterus appears within normal limits for age. No obstruction, pneumatosis or pneumoperitoneum. No ascites or adenopathy. Mild anasarca noted within the body wall. Postoperative changes within the lumbar spine along with diffuse advanced degenerative disease throughout the visualized thoracic spine is stable. Impression: 1. Infiltrates within the lung bases suggests pneumonia. 2. Mild anasarca. Dictated by: Dictated on workstation # [id number]
[2021-09-13] MEDS ORDERED: LACTATED RINGERS 1,000 ML IV SCH (22:30)
[2021-09-13] MEDS ORDERED: DEXTROSE 50% 50 ML (IMS) SYR IV ONE (22:30)
--- NOTE | 2021-09-13 23:10 | Tele-ICU Consult ---
Progress Note 61 y/o female D with DM Presents with nause, abdominal and back pain and low BS of 39 Given D10 infusion en route to ED. CT abd: : ground glas appearance in lung bases Cefipime started Lactate normal Repeat BS improved Will culture, DVT prophylaxis Focused Exam Lactate Level 09/13/21 21:28: Lactic Acid Level 1.55 Height, Weight, BMI Height: 5'1.00" Weight: 122lbs. 1.0oz. 55.431939dx; 24.00 BMI Method:Estimated Lactic Acid Level Laboratory Tests Test 09/13/21 21:28 Lactic Acid Level 1.55 MMOL/L (0.50-2.00) Laboratory Tests 09/13/21 21:28 Results/Procedures Lab Laboratory Tests 09/13/21 21:28 DARCI ELLER MD Sep 13, 2021 23:10
[2021-09-13 23:58] VITALS: BP 122/65
[2021-09-14] MEDS ORDERED: RT-ALBUTEROL/IPRATROPIUM 3 ML (DUONEB) VIAL INH PRN (00:15)
[2021-09-14] MEDS: D5 NS 1000 ML IV SOLUTION 1,000 ML IV SCH ×2 (00:33→08:47)
[2021-09-14] MEDS: RT-ALBUTEROL/IPRATROPIUM 3 ML (DUONEB) VIAL INH SCH ×4 (02:57→21:23)
[2021-09-14 05:18] LABS: BASOPHILS # (AUTO) 0.1 10^3/uL (0.0-0.1); BASOPHILS % (AUTO) 0 % (0-10); EOSINOPHILS # (AUTO) 0.4 10^3/uL (0.0-0.3); EOSINOPHILS % (AUTO) 2 % (0-10); HEMATOCRIT 26 % (35-52); HEMOGLOBIN 8.3 g/dL (11.5-16.0); LYMPHOCYTES # (AUTO) 3.3 10^3/uL (1.0-4.0); LYMPHOCYTES % (AUTO) 20 % (12-44); MEAN CORPUSCULAR HEMOGLOBIN 28 pg (25-34); MEAN CORPUSCULAR HGB CONC 32 g/dL (32-36); MEAN CORPUSCULAR VOLUME 87 fL (80-99); MEAN PLATELET VOLUME 10.2 fL (9.0-12.2); MONOCYTES # (AUTO) 0.5 10^3/uL (0.0-1.0); MONOCYTES % (AUTO) 3 % (0-12); NEUTROPHILS # (AUTO) 11.8 10^3/uL (1.8-7.8); NEUTROPHILS % (AUTO) 73 % (42-75); PLATELET COUNT 382 10^3/uL (130-400)
[2021-09-14 05:33] LABS: ALBUMIN 2.4 GM/DL (3.2-4.5); POTASSIUM 4.4 MMOL/L (3.6-5.0)
[2021-09-14 05:34] LABS: CALCIUM 7.7 MG/DL (8.5-10.1)
[2021-09-14 05:36] LABS: TOTAL PROTEIN 5.6 GM/DL (6.4-8.2)
[2021-09-14 05:37] LABS: BILIRUBIN,TOTAL 0.2 MG/DL (0.1-1.0)
[2021-09-14 05:39] LABS: CREATININE SERUM 2.48 MG/DL (0.60-1.30); PHOSPHORUS 4.4 MG/DL (2.3-4.7)
[2021-09-14 05:42] LABS: MAGNESIUM 1.9 MG/DL (1.6-2.4)
[2021-09-14] MEDS: inSUlin ASPART (NovoLOG) 1 UNIT/0.01 ML (CHARGE PER UNIT) SC SCH ×4 (06:00→20:06)
--- NOTE | 2021-09-14 08:21 | Tele-ICU Progress Note ---
Subjective Date Seen by a Provider: Sep 14, 2021 Time Seen by a Provider: 07:25 Subjective/Events-last exam This virtual visit was conducted using real time audio/video. Thank you for asking us to see this patient for hypoglycemia, respiratory insufficiency and distress due to pna. HPC: Recent events: Now on RA. PE: VSS O2 sat 94% on RA HEENT: No obvious masses, adenopathy or JVD. Chest: clear to auscultation. CV: RRR S1 S2 No murmur or added sounds. Abd: Non-tender. Bowel sounds Y. : Unremarkable. Bateman Y. CAN HANDLER/psychiatric: Alert and oriented, grossly intact. No obvious focal findings. Extremities: No edema. Capillary refill < 3 seconds. Skin: unremarkable. Results: Elevated WCC 16K but decreasing. BUN 35 Cr 2.48. CXR w bibasal infilts. A/P: Respiratory insufficiency/distress: improved. Cont Duonebs, Cefepime. Available chart/ vitals / labs / images reviewed. Video assessment done using teleICU camera, rest of exam as per RN. Monitor for increasing oxygenation needs. Possible transfer out later. Discussed with RN Cecille. Asked RN to reach out to eICU if any questions or concerns later. Time spent with patient//coordination of care with other health professionals (mins): a5 Sepsis Event Evaluation Height, Weight, BMI Height: 5'1.00" Weight: 122lbs. 1.0oz. 55.748674jd; 24.00 BMI Method:Estimated Focused Exam Lactate Level 09/13/21 21:28: Lactic Acid Level 1.55 Exam Exam Patient acknowledged, consented, and participated in this virtual visit which was conducted using real time audio/video Vital Signs Date Time Temp Pulse Resp B/P (MAP) Pulse Ox O2 Delivery O2 Flow Rate FiO2 09/14/21 07:31 94 Room Air 09/14/21 07:00 73 14 100/49 93 Room Air 09/14/21 07:00 71 09/14/21 06:00 71 11 102/53 91 Room Air 09/14/21 05:00 75 8 92/41 90 Room Air 09/14/21 04:00 73 8 91/41 91 Room Air 09/14/21 03:04 91 Room Air 09/14/21 03:00 76 9 105/54 94 Room Air 09/14/21 02:15 75 10 107/48 95 Room Air 09/14/21 01:45 77 11 117/64 91 Room Air 09/14/21 01:15 75 11 89/47 91 Room Air 09/14/21 01:00 73 8 87/40 90 Room Air 09/14/21 01:00 80 09/14/21 00:45 77 10 109/65 91 Room Air 09/14/21 00:30 36.9 80 10 121/82 93 Room Air 09/13/21 23:58 37.2 77 96 09/13/21 23:56 80 09/13/21 23:10 77 15 122/65 91 Room Air 09/13/21 23:00 Room Air 09/13/21 21:30 Room Air 09/13/21 21:21 37.2 73 14 99/51 96 Room Air 09/13/21 21:21 37.2 73 15 99/51 (67) 96 Room Air I & O 09/14/21 07:00 Intake Total 110 ml Output Total 1000 ml Balance -890 ml Height & Weight Height: 5'1.00" Weight: 122lbs. 1.0oz. 55.004933ww; 24.00 BMI Method:Estimated General Appearance: No Apparent Distress Capillary Refill: Less Than 3 Seconds Peripheral Pulses: 1+ Dorsalis Pedis (R), 1+ Left Dors-Pedis (L) (see free text) Gastrointestinal: normal bowel sounds, soft, tenderness Results Lab Laboratory Tests 09/13/21 21:28 09/14/21 04:27 Assessment/Plan Assessment/Plan See free text. Critical Care: Critically Ill Patient RADHA CONNER MD Sep 14, 2021 08:21
[2021-09-14] MEDS ORDERED: rOPINIRole 0.25 MG (REQUIP) TAB PO SCH (09:00)
--- NOTE | 2021-09-14 09:07 | History & Physical-Hospitalist ---
History of Present Illness HPI/Chief Complaint Patient is 61-year-old female well-known to me from multiple admissions who presented to the emergency department due to hypoglycemia and altered mental status. She reported to the emergency department that she had increasing back pain and took 4 of her 20 mg Percocet to help with this. She then took her insulin at her normal evening time but was unsure of how much she took. She became confused and EMS was summoned and found her blood sugar to be 39. They started her on D10 but she remained relatively hypoglycemic with that with a blood sugar of 94 and then dropped to 54 even with continuous dextrose running. She received a half amp of D50 which increased her blood sugar to 158. She was admitted to the ICU due to her history of labile blood sugars and propensity to go into DKA. This morning her blood sugar was only 110 with fluids running. She would like to try eating though. She also complains of back pain. She denied any nausea or vomiting though and believe she will be able to keep her pain medications down. Source: patient Date Seen 09/14/21 Time Seen by a Provider: 09:04 Attending Physician Gerardo Ritter MD PCP [facility] Referring Physician Date of Admission Sep 13, 2021 at 22:25 Home Medications & Allergies Home Medications Reviewed patient Home Medication Reconciliation performed by pharmacy medication reconciliations engine test cell technician and/or nursing. Patients Allergies have been reviewed. Allergies Allergies Coded Allergies ketorolac (Verified Allergy, Severe, ANAPHYLAXIS, PT TAKES ASA AT HOME, 03/06/19) scopolamine (Verified Allergy, Mild, Rash, 03/21/19) exenatide (Verified Allergy, Unknown, NAUSEA, 03/06/19) NON STOP VOMITING latex (Verified Allergy, Unknown, RASH, 03/06/19) metoclopramide (Verified Allergy, Unknown, RESTLESS LEGS, 03/06/19) erythromycin base (Verified Adverse Reaction, Unknown, 03/21/19) Past [id number]-[id number]-Elfqbx Hx Patient Social History Marrital Status: single Employed/Student: unemployed Tobacco Use?: Yes Tobacco type used: Cigarettes Smoking Status: Current Everyday Smoker Substance use?: Yes Substance type: Opiates/Opioids Substance frequency: Daily Alcohol Use?: No Pt feels they are or have been: Unable to obtain Immunizations Up To Date Date of Influenza Vaccine: Nov 22, 2019 First/Initial COVID19 Vaccinat: January 2021 Second COVID19 Vaccination Sharif: February 2021 Tetanus Booster (TDap): Unknown Hepatitis A: No Hepatitis B: No PED Vaccines UTD: No Date of Pneumonia Vaccine: Nov 06, 2019 Seasonal Allergies Seasonal Allergies: Yes Current Status status: No Advance Directives: No Communicates: Verbally Primary Language: Wallisian Preferred Spoken Language: Wallisian Is interpretation needed?: No Sensory deficits: Other Implanted or Applied Medical D: Port-a-cath, Stents Past Medical History Surgeries: Cardiac, Coronary Stent, Ear Surgery, Gallbladder, Orthopedic, Renal Chronic Bronchitis, Sleep Apnea Currently Using CPAP: No Currently Using BIPAP: No Chronic Edema/Swelling, Coronary Artery Disease, Deep Vein Thrombosis, High Cholesterol, Hypertension, Palpitations, Peripheral Vascular Headaches /Migraines, Neuropathy 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 Diabetes Mellitus Type 1 with poor control 2. Hypertension 3.Hyperlipidemia 4.Chronic Kidney Disease 5. Irritable Bowel Disorder 6. Fibromyalgia 7.Psoriasis 8.chronic neck and back pain- on chronic narcotics from pain management 9. hx of blood clots in the upper extremities 10. Anxiety 11. Tobaccoism 12. 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 GERD 14. Diverticulosis 15. Seizure Disorder PSH: 1.Renal stent 2.cholecystectomy 3.Laminectomy 5.ear tubes as a child Family Medical History Reviewed Nursing Family Hx Cancer of mouth 19 FATHER ( of esophogeal cancer.) Cardiovascular disease 19 MOTHER G8 BROTHER Completed stroke 19 FATHER G8 BROTHER Diabetes mellitus G8 BROTHER FH: lung cancer 19 MOTHER Hypertension 19 FATHER Kidney disease 19 FATHER Myocardial infarction 19 MOTHER G8 BROTHER Respiratory disorder No Family History of: AIDS Cancer, Diabetes, Hypertension SOCIAL HISTORY: -ETOH--RARELY USES -DRUGS--Rx NARCOTIC ABUSE -SMOKES 1 PPD PSH: -LINQ DEVICE PLACED 11/09/19 FOR REPORTED PALPITATIONS X 6 MONTHS, SINCE PERCOCET WAS DC'D -MULTIPLE CARDIAC CATHS--STENT X 1 TO LAD 07/13/15. LAST CATH 01/18/19--NO INTERVENTION -LUMBAR SPINE FUSION X 3--12/2002, 04/2007, AND 05/2007 -LUMBAR DISCECTOMY 10/2000--? LAMINECTOMY? -CERVICAL SPINE FUSION 11/2006 -CHOLECYSTECTOMY 1984 -BMT'S -LITHOTRIPSY AND RIGHT URETERAL STENT -EGD'S WITH ESOPHAGEAL DILATIONS -COLONOSCOPIES, LAST ONE 03/08/19 -PORT RIGHT CHEST -LEFT SHOULDER ROTATOR CUFF REPAIR 05/01/20--DR. PALACIOS -CONTINUOUS GLUCOSE MONITOR PRESENT 06/25/20--LLQ OF ABDOMEN--NOT PRESENT 10/2020 -BILATERAL CATARACT SURGERY 10/2020 -PERIPHERAL ANGIOGRAM 05/02/[address] FELIX: SEVERE BILATERAL SUPERFICIAL FEMORAL ARTERY DISEASE AND RECOMMENDED BILATERAL FEMORAL-POPLITEAL SURGERY--REFERRED TO DR. SAWYER AT [facility] LONG HISTORY OF EXTREME NON-COMPLIANCE IN ALL ASPECTS OF CARE Review of Systems Constitutional: No chills, No fever EENTM: no symptoms reported Respiratory: no symptoms reported Cardiovascular: no symptoms reported Gastrointestinal: abdominal pain; No nausea, No vomiting Genitourinary: no symptoms reported Musculoskeletal: back pain, joint pain Skin: no symptoms reported Psychiatric/Neurological: No Symptoms Reported Physical Exam Physical Exam Vital Signs Vital Signs - First Documented Capillary Refill : Less Than 3 Seconds Height, Weight, BMI Height: 5'1.00" Weight: 122lbs. 1.0oz. 55.286648xb; 24.00 BMI Method:Estimated General Appearance: No Apparent Distress, Chronically ill HEENT: PERRL/EOMI, Moist Mucous Membranes; No Scleral Icterus (L), No Scleral Icterus (R) Neck: Normal Inspection, Supple Respiratory: Lungs Clear, No Accessory Muscle Use, No Respiratory Distress Cardiovascular: Regular Rate, Rhythm, No JVD, No Murmur Gastrointestinal: Normal Bowel Sounds, Non Tender, Soft Extremity: No Calf Tenderness, No Pedal Edema Neurologic/Psychiatric: Alert, Oriented x3 (a little confused about the details of last night), Normal Mood/Affect Skin: Normal Color, Warm/Dry Results Results/Procedures Labs Laboratory Tests 09/13/21 21:28 09/14/21 04:27 Patient resulted labs reviewed. Imaging: Reviewed Imaging Report Imaging [facility], [place] NAME: VALENTE HARPER MED REC#: [id number] PT STATUS: ADM IN : 1960 PHYSICIAN: JR MARIE APRN ADMIT DATE: 09/13/21/ICU Signed Date of Exam:09/13/21 CHEST 1 VIEW, AP/PA ONLY Indication: Altered mental status with dyspnea. Comparison: 06/12/2021. Discussion: Single portable upright view of the chest was obtained. Normal heart size. New perihilar infiltrates and right lung base infiltrates, likely pneumonia. No pleural fluid or pneumothorax. No osseous abnormality. Right-sided port and postoperative changes within the cervical spine are stable. Implantable loop recorder incidentally noted. Impression: New bilateral perihilar infiltrates and right lung base infiltrates, likely pneumonia. Dictated by: Dictated on workstation # [id number] Dict: 09/13/21 2214 Trans: 09/14/21 0010 [facility] [id number] Interpreted by: ALBINA HENSLEY MD Electronically signed by: ALBINA HENSLEY MD 09/14/210 [facility] [place] NAME: VALENTE HARPER MED REC#: [id number] PT STATUS: ADM IN : 1960 PHYSICIAN: JR AMRIE APRN ADMIT DATE: 09/13/21/ICU Signed Date of Exam:09/13/21 CT ABDOMEN/PELVIS WO Procedure: CT abdomen and pelvis without contrast. technique: Multiple contiguous axial images were obtained through the abdomen and pelvis without the use of intravenous contrast. Auto Exposure Controls were utilized during the CT exam to meet ALARA standards for radiation dose reduction. Indication: Generalized abdominal pain. Comparison: 06/25/2020. Discussion: Groundglass infiltrates within the lung bases, right greater than left, likely pneumonia, recommend clinical correlation for viral pneumonia. Mild cardiomegaly stable. No pleural or pericardial fluid. The gallbladder appears to be surgically absent, stable. The liver, pancreas, stomach, spleen, and adrenal glands are unremarkable. No renal stone or hydronephrosis. The aorta is normal in caliber and contains moderate atherosclerotic plaque. Urinary bladder is decompressed by a Bateman catheter. The uterus appears within normal limits for age. No obstruction, pneumatosis or pneumoperitoneum. No ascites or adenopathy. Mild anasarca noted within the body wall. Postoperative changes within the lumbar spine along with diffuse advanced degenerative disease throughout the visualized thoracic spine is stable. Impression: 1. Infiltrates within the lung bases suggests pneumonia. 2. Mild anasarca. Dictated by: Dictated on workstation # [id number] Dict: 09/13/212222 Trans: 09/14/219 [facility] [id number] Interpreted by: ALBINA HENSLEY MD Electronically signed by: ALBINA HENSLEY MD 09/14/219 Assessment/Plan Admission Diagnosis Refractory hypoglycemia Admission Status: Inpatient Order (span 2 midnights) Reason for Inpatient Admission: see below Assessment and Plan Refractory hypoglycemia IDDMI- brittle Continue on D10, watch BS closely to make sure she is not overcorrecting on BS Check BMP this afternoon to follow gap/bicarb Has propensity for DKA so watch closely last a1c here was 10.3 in May acute on CKD has wandering baseline but is higher than normal Continue IVF, improved overnight Monitor UOP Has metabolic acidosis but no gap, may be due to CKD, trend Pneumonia Not sepsis Continue Cefepime Await cultures Chronic pain Oxycodone, restarted per her most recently filled Rx from pain doctor in [place] DVT ppx: Lovenox Of note patient has since established with [facility] so will transfer care to their service tomorrow 09/15/21. Clinical Quality Measures Smoking Cessation Counseling: Counseling-Symptomatic: 3-10 Minutes GERARDO RITTER MD Sep 14, 2021 09:07
[2021-09-14] MEDS: CEFEPIME 1,000 MG/SWFI 10 ML IV PUSH IV SCH ×4 (10:18→20:07)
[2021-09-14] MEDS: ENOXAPARIN 30 MG/0.3 ML (LOVENOX) SYR SQ SCH (15:14)
[2021-09-14 15:42] LABS: POTASSIUM 4.3 MMOL/L (3.6-5.0)
[2021-09-14 15:43] LABS: CALCIUM 7.6 MG/DL (8.5-10.1)
[2021-09-14 15:48] LABS: CREATININE SERUM 2.25 MG/DL (0.60-1.30)
[2021-09-14] MEDS: rOPINIRole 0.25 MG (REQUIP) TAB PO SCH (20:06)
[2021-09-15] MEDS: RT-ALBUTEROL/IPRATROPIUM 3 ML (DUONEB) VIAL INH SCH ×4 (03:21→21:41)
[2021-09-15 05:13] LABS: BASOPHILS # (AUTO) 0.1 10^3/uL (0.0-0.1); BASOPHILS % (AUTO) 1 % (0-10); EOSINOPHILS # (AUTO) 0.1 10^3/uL (0.0-0.3); EOSINOPHILS % (AUTO) 1 % (0-10); HEMATOCRIT 24 % (35-52); HEMOGLOBIN 7.7 g/dL (11.5-16.0); LYMPHOCYTES # (AUTO) 1.2 10^3/uL (1.0-4.0); LYMPHOCYTES % (AUTO) 11 % (12-44); MEAN CORPUSCULAR HEMOGLOBIN 28 pg (25-34); MEAN CORPUSCULAR HGB CONC 33 g/dL (32-36); MEAN CORPUSCULAR VOLUME 86 fL (80-99); MEAN PLATELET VOLUME 9.7 fL (9.0-12.2); MONOCYTES # (AUTO) 0.3 10^3/uL (0.0-1.0); MONOCYTES % (AUTO) 3 % (0-12); NEUTROPHILS # (AUTO) 9.3 10^3/uL (1.8-7.8); NEUTROPHILS % (AUTO) 84 % (42-75); PLATELET COUNT 336 10^3/uL (130-400); WHITE BLOOD COUNT 11.1 10^3/uL (4.3-11.0)
[2021-09-15 05:26] LABS: ALBUMIN 2.2 GM/DL (3.2-4.5); POTASSIUM 4.6 MMOL/L (3.6-5.0)
[2021-09-15 05:27] LABS: CALCIUM 7.8 MG/DL (8.5-10.1)
[2021-09-15 05:28] LABS: TOTAL PROTEIN 5.3 GM/DL (6.4-8.2)
[2021-09-15 05:30] LABS: BILIRUBIN,TOTAL 0.3 MG/DL (0.1-1.0)
[2021-09-15 05:32] LABS: CREATININE SERUM 2.04 MG/DL (0.60-1.30); PHOSPHORUS 3.4 MG/DL (2.3-4.7)
[2021-09-15 05:35] LABS: MAGNESIUM 1.8 MG/DL (1.6-2.4)
[2021-09-15] MEDS: D5 NS 1000 ML IV SOLUTION 1,000 ML IV SCH (06:16)
[2021-09-15] MEDS: inSUlin ASPART (NovoLOG) 1 UNIT/0.01 ML (CHARGE PER UNIT) SC SCH ×4 (06:16→22:07)
[2021-09-15] MEDS: rOPINIRole 0.25 MG (REQUIP) TAB PO SCH ×2 (08:26→22:06)
--- NOTE | 2021-09-15 08:38 | Tele-ICU Progress Note ---
Subjective Date Seen by a Provider: Sep 15, 2021 Time Seen by a Provider: 13:24 Subjective/Events-last exam 61 yo F took Percoset, became hypoglycemic, now resolved, not awake enough to eat for now, will try later. and also has RLL PNA, on IV cefepime, WBC down from 18 to 11 also on Requip Sepsis Event Evaluation Height, Weight, BMI Height: 5'1.00" Weight: 122lbs. 1.0oz. 55.339675gv; 24.00 BMI Method:Estimated Focused Exam Lactate Level 09/13/21 21:28: Lactic Acid Level 1.55 Exam Exam Patient acknowledged, consented, and participated in this virtual visit which was conducted using real time audio/video Vital Signs Date Time Temp Pulse Resp B/P (MAP) Pulse Ox O2 Delivery O2 Flow Rate FiO2 09/15/21 07:45 37.8 09/15/21 07:38 97 Nasal Cannula 3.00 09/15/21 07:00 86 09/15/21 06:00 90 13 113/56 95 Nasal Cannula 3.00 09/15/21 05:00 96 17 120/59 93 Nasal Cannula 3.00 09/15/21 04:37 94 Nasal Cannula 3.00 09/15/21 04:00 105 16 116/56 93 Nasal Cannula 3.00 09/15/21 03:21 94 Nasal Cannula 3.00 09/15/21 03:00 102 15 119/60 91 Nasal Cannula 3.00 09/15/21 02:57 37.6 91 Nasal Cannula 3.00 09/15/21 02:00 103 15 131/62 91 Nasal Cannula 2.00 09/15/21 01:00 98 09/15/21 01:00 98 14 153/79 93 Nasal Cannula 2.00 09/15/21 00:08 38.0 Nasal Cannula 2.00 09/15/21 00:07 96 Nasal Cannula 2.00 09/15/21 00:00 91 16 132/71 95 Nasal Cannula 2.00 09/14/21 23:00 89 11 127/67 94 Nasal Cannula 2.00 09/14/21 22:22 37.8 Nasal Cannula 2.00 09/14/21 22:00 90 11 106/55 95 Nasal Cannula 2.00 09/14/21 21:23 96 Nasal Cannula 1.50 09/14/21 21:00 87 15 113/63 97 Nasal Cannula 2.00 09/14/21 20:00 94 Nasal Cannula 2.00 09/14/21 20:00 89 18 119/57 94 Nasal Cannula 2.00 09/14/21 19:52 38.0 Nasal Cannula 2.00 09/14/21 19:00 89 09/14/21 19:00 89 16 130/66 92 Room Air 09/14/21 18:00 96 16 111/48 95 Room Air 09/14/21 17:00 96 18 116/54 92 Room Air 09/14/21 16:46 37.8 09/14/21 16:00 90 16 102/43 94 Room Air 09/14/21 16:00 Nasal Cannula 2.00 09/14/21 15:00 99 15 114/55 96 Room Air 09/14/21 14:51 99 Nasal Cannula 2.00 09/14/21 14:00 91 18 120/61 96 Room Air 09/14/21 13:00 84 9 95/48 91 Room Air 09/14/21 12:31 79 09/14/21 12:11 37.6 09/14/21 12:00 Nasal Cannula 2.00 09/14/21 12:00 75 19 80/42 93 Room Air 09/14/21 11:00 80 8 89/43 95 Room Air 09/14/21 10:00 82 7 95/48 Room Air 09/14/21 10:00 82 7 95/48 Room Air 09/14/21 09:00 82 6 121/57 94 Room Air 09/14/21 09:00 82 6 121/57 94 Room Air I & O 09/15/21 07:00 Intake Total 2510 ml Output Total 1525 ml Balance 985 ml Height & Weight Height: 5'1.00" Weight: 122lbs. 1.0oz. 55.621814if; 24.00 BMI Method:Estimated General Appearance: No Apparent Distress, Chronically ill HEENT: PERRL/EOMI, Moist Mucous Membranes; No Scleral Icterus (L), No Scleral Icterus (R) Neck: Normal Inspection, Supple Respiratory: Lungs Clear, No Accessory Muscle Use, No Respiratory Distress, Rhonci, Wheezing Cardiovascular: Regular Rate, Rhythm, No JVD, No Murmur Capillary Refill: Less Than 3 Seconds Peripheral Pulses: 1+ Dorsalis Pedis (R), 1+ Left Dors-Pedis (L) (see free text) Gastrointestinal: normal bowel sounds, non tender, soft, tenderness Extremity: No Calf Tenderness, No Pedal Edema Neurologic/Psychiatric: Alert, Oriented x3 (a little confused about the details of last night), Normal Mood/Affect, Depressed Affect (falls to sleep easily, took Percoset) Skin: Normal Color, Warm/Dry Results Lab Laboratory Tests 09/13/21 21:28 09/14/21 04:27 09/14/21 15:21 09/15/21 05:04 Assessment/Plan Assessment/Plan Glucose better, no resp distress, more alert but still falls to sleep easily will keep in MICU, monitor glucose, continue abx for PNA glucose in 200's continue medium sliding scale Critical Care: Critically Ill Patient Time spent with patient (mins): 25 DARCI FENG MD Sep 15, 2021 08:38
[2021-09-15] MEDS: CEFEPIME 1,000 MG/SWFI 10 ML IV PUSH IV SCH ×4 (10:31→22:06)
[2021-09-15] MEDS: ENOXAPARIN 30 MG/0.3 ML (LOVENOX) SYR SQ SCH (11:15)
--- NOTE | 2021-09-15 16:14 | Progress Note ---
Subjective Subjective/Events-last exam Patient drowsy this AM. Tolerating PO diet. Denies any pain at this time. Review of Systems Pulmonary: No Dyspnea; Cough Cardiovascular: No: Chest Pain, Palpitations Gastrointestinal: No: Nausea, Vomiting, Abdominal Pain, Diarrhea, Constipation Neurological: Weakness, Incoordination Focused Exam Lactate Level 09/13/21 21:28: Lactic Acid Level 1.55 Objective Exam Last Set of Vital Signs Vital Signs Date Time Temp Pulse Resp B/P (MAP) Pulse Ox O2 Delivery O2 Flow Rate FiO2 09/15/21 12:15 95 Nasal Cannula 3.00 09/15/21 11:30 37.9 09/15/21 11:00 89 13 113/57 Capillary Refill : Less Than 3 Seconds I&O Intake and Output 09/15/21 00:00 Intake Total 1390 ml Output Total 1850 ml Balance -460 ml Intake Oral 1390 ml Output Urine Total 1850 ml General: Alert, No Acute Distress HEENT: Mucous Memb Moist/[place] Lungs: Clear to Auscultation, Normal Air Movement Heart: Regular Rate, No Murmurs Abdomen: Normal Bowel Sounds, Soft, No Tenderness, No Masses Extremities: No Edema, No Tenderness/Swelling Skin: No Rashes Neuro: Normal Speech, Sensation Intact, Cranial Nerves 3-12 NL Results/Procedures Lab Laboratory Tests 09/14/21 19:54: Glucometer 239H 09/15/21 05:04: White Blood Count 11.1H, Red Blood Count 2.73L, Hemoglobin 7.7L, Hematocrit 24L, Mean Corpuscular Volume 86, Mean Corpuscular Hemoglobin 28, Mean Corpuscular Hemoglobin Concent 33, Red Cell Distribution Width 15.2H, Platelet Count 336, Mean Platelet Volume 9.7, Immature Granulocyte % (Auto) 1, Neutrophils (%) (Auto) 84H, Lymphocytes (%) (Auto) 11L, Monocytes (%) (Auto) 3, Eosinophils (%) (Auto) 1, Basophils (%) (Auto) 1, Neutrophils # (Auto) 9.3H, Lymphocytes # (Auto) 1.2, Monocytes # (Auto) 0.3, Eosinophils # (Auto) 0.1, Basophils # (Auto) 0.1, Immature Granulocyte # (Auto) 0.1, Sodium Level 133L, Potassium Level 4.6, Chloride Level 113H, Carbon Dioxide Level 11L, Anion Gap 9, Blood Urea Nitrogen 32H, Creatinine 2.04H, Estimat Glomerular Filtration Rate 25, BUN/Creatinine Ratio 16, Glucose Level 223H, Calcium Level 7.8L, Corrected Calcium 9.2, Phosphorus Level 3.4, Magnesium Level 1.8, Total Bilirubin 0.3, Aspartate Amino Transf (AST/SGOT) 15, Alanine Aminotransferase (ALT/SGPT) 7, Alkaline Phosphatase 79, Total Protein 5.3L, Albumin 2.2L 09/15/21 10:42: Glucometer 114H 09/15/21 15:33: Glucometer 198H 09/15/21 15:44: Glucometer 229H Microbiology 09/13/21 MRSA Screen - Final, Complete MRSA not isolated 09/13/21 Blood Culture - Preliminary, Resulted No growth Assessment/Plan Assessment/Plan (1) Uncontrolled type 1 diabetes mellitus with hyperglycemia Status: Acute Assessment & Plan: 09/15: Switch fluids to NS from D5 due to blood sugars trending up, advance diet as tolerated (2) Hypoglycemia Status: Acute (3) RLL pneumonia Status: Acute Assessment & Plan: 09/15: Continue Cefepime and titrate oxygen as tolerated (4) Acute kidney injury superimposed on chronic kidney disease Status: Acute Assessment & Plan: 09/15: Gentle IV/PO hydration (5) Chronic pain Status: Chronic Qualifiers: Qualified Codes: G89.4 - Chronic pain syndrome (6) DVT prophylaxis Status: Acute Assessment & Plan: - Lovenox Clinical Quality Measures Smoking Cessation Counseling: Counseling-Symptomatic: 3-10 Minutes ALEXX ZIMMER MD Sep 15, 2021 16:14
[2021-09-15] MEDS: NS IV 1000 ML 1,000 ML IV SCH (16:34)
[2021-09-15] MEDS ORDERED: DEXTROSE 50% 50 ML (IMS) SYR ONE (18:38)
[2021-09-15] MEDS ORDERED: DEXTROSE 50% 50 ML (IMS) SYR IV ONE (18:45)
[2021-09-16] MEDS: RT-ALBUTEROL/IPRATROPIUM 3 ML (DUONEB) VIAL INH SCH ×4 (02:49→20:38)
[2021-09-16] MEDS: inSUlin ASPART (NovoLOG) 1 UNIT/0.01 ML (CHARGE PER UNIT) SC SCH ×4 (05:18→20:32)
[2021-09-16 06:02] LABS: BASOPHILS # (AUTO) 0.1 10^3/uL (0.0-0.1); BASOPHILS % (AUTO) 1 % (0-10); EOSINOPHILS # (AUTO) 0.2 10^3/uL (0.0-0.3); EOSINOPHILS % (AUTO) 2 % (0-10); HEMATOCRIT 22 % (35-52); HEMOGLOBIN 7.3 g/dL (11.5-16.0); LYMPHOCYTES % (AUTO) 10 % (12-44); MEAN CORPUSCULAR HEMOGLOBIN 29 pg (25-34); MEAN CORPUSCULAR HGB CONC 33 g/dL (32-36); MEAN CORPUSCULAR VOLUME 88 fL (80-99); MEAN PLATELET VOLUME 9.6 fL (9.0-12.2); MONOCYTES # (AUTO) 0.4 10^3/uL (0.0-1.0); MONOCYTES % (AUTO) 4 % (0-12); NEUTROPHILS # (AUTO) 8.4 10^3/uL (1.8-7.8); NEUTROPHILS % (AUTO) 83 % (42-75); PLATELET COUNT 339 10^3/uL (130-400); WHITE BLOOD COUNT 10.2 10^3/uL (4.3-11.0)
[2021-09-16 06:19] LABS: POTASSIUM 3.9 MMOL/L (3.6-5.0)
[2021-09-16 06:20] LABS: CALCIUM 8.2 MG/DL (8.5-10.1)
[2021-09-16 06:21] LABS: TOTAL PROTEIN 5.2 GM/DL (6.4-8.2)
[2021-09-16 06:23] LABS: BILIRUBIN,TOTAL 0.3 MG/DL (0.1-1.0)
[2021-09-16 06:24] LABS: PHOSPHORUS 3.4 MG/DL (2.3-4.7)
[2021-09-16 06:25] LABS: CREATININE SERUM 1.46 MG/DL (0.60-1.30)
[2021-09-16 06:28] LABS: MAGNESIUM 1.7 MG/DL (1.6-2.4)
--- NOTE | 2021-09-16 10:07 | Progress Note ---
Subjective Subjective/Events-last exam Patient drowsy this AM. Poor appetite. Denies any pain. Review of Systems General: Malaise Pulmonary: No Dyspnea, No Cough Cardiovascular: No: Chest Pain, Palpitations, Edema Gastrointestinal: No: Nausea, Vomiting, Diarrhea, Constipation Genitourinary: Other (catheter in place) Neurological: Weakness, Incoordination Focused Exam Lactate Level 09/13/21 21:28: Lactic Acid Level 1.55 Objective Exam Last Set of Vital Signs Vital Signs Date Time Temp Pulse Resp B/P (MAP) Pulse Ox O2 Delivery O2 Flow Rate FiO2 09/16/21 08:21 36.6 85 18 118/61 94 09/16/21 07:21 Nasal Cannula 2.00 Capillary Refill : Less Than 3 Seconds I&O Intake and Output 09/16/21 00:00 Intake Total 1470 ml Output Total 1150 ml Balance 320 ml Intake Oral 340 ml IV Total 1130 ml Output Urine Total 1150 ml General: Alert, No Acute Distress Lungs: Clear to Auscultation, Normal Air Movement Heart: Regular Rate, No Murmurs Abdomen: Normal Bowel Sounds, Soft, No Tenderness, No Masses Extremities: No Edema, No Tenderness/Swelling Neuro: Sensation Intact, Cranial Nerves 3-12 NL Results/Procedures Lab Laboratory Tests 09/15/21 10:42: Glucometer 114H 09/15/21 15:33: Glucometer 198H 09/15/21 15:44: Glucometer 229H 09/15/21 18:31: Glucometer 44*L 09/15/21 19:06: Glucometer 141H 09/15/21 20:07: Glucometer 204H 09/15/21 21:57: Glucometer 225H 09/16/21 05:10: Glucometer 216H 09/16/21 05:50: White Blood Count 10.2, Red Blood Count 2.56L, Hemoglobin 7.3L, Hematocrit 22L, Mean Corpuscular Volume 88, Mean Corpuscular Hemoglobin 29, Mean Corpuscular Hemoglobin Concent 33, Red Cell Distribution Width 15.6H, Platelet Count 339, Mean Platelet Volume 9.6, Immature Granulocyte % (Auto) 1, Neutrophils (%) (Auto) 83H, Lymphocytes (%) (Auto) 10L, Monocytes (%) (Auto) 4, Eosinophils (%) (Auto) 2, Basophils (%) (Auto) 1, Neutrophils # (Auto) 8.4H, Lymphocytes # (Auto) 1.0, Monocytes # (Auto) 0.4, Eosinophils # (Auto) 0.2, Basophils # (Auto) 0.1, Immature Granulocyte # (Auto) 0.1, Sodium Level 136, Potassium Level 3.9, Chloride Level 114H, Carbon Dioxide Level 11L, Anion Gap 11, Blood Urea Nitrogen 29H, Creatinine 1.46H, Estimat Glomerular Filtration Rate 36, BUN/Creatinine Ratio 20, Glucose Level 219H, Calcium Level 8.2L, Corrected Calcium 9.8, Phosphorus Level 3.4, Magnesium Level 1.7, Total Bilirubin 0.3, Aspartate Amino Transf (AST/SGOT) 14, Alanine Aminotransferase (ALT/SGPT) 7, Alkaline Phosphatase 90, Total Protein 5.2L, Albumin 2.0L 09/16/21 09:45: Microbiology 09/13/21 MRSA Screen - Final, Complete MRSA not isolated 09/13/21 Blood Culture - Preliminary, Resulted No growth Assessment/Plan Assessment/Plan (1) Uncontrolled type 1 diabetes mellitus with hyperglycemia Status: Acute Assessment & Plan: 09/15: Switch fluids to NS from D5 due to blood sugars trending up, advance diet as tolerated 1026: switched to SSI A due to low blood sugars over night and poor appetite (2) Hypoglycemia Status: Acute (3) RLL pneumonia Status: Acute Assessment & Plan: 09/15: Continue Cefepime and titrate oxygen as tolerated 09/16: Continue to titrate oxygen as tolerated (4) Acute kidney injury superimposed on chronic kidney disease Status: Acute Assessment & Plan: 09/15: Gentle IV/PO hydration 09/16: Cr trending down with PO hydration, continue to monitor (5) Chronic pain Status: Chronic Assessment & Plan: 09/16: Change pain medication to PRN from scheduled due to drowsiness Qualifiers: Qualified Codes: G89.4 - Chronic pain syndrome (6) DVT prophylaxis Status: Acute Assessment & Plan: - Lovenox Clinical Quality Measures Smoking Cessation Counseling: Counseling-Symptomatic: 3-10 Minutes ALEXX ZIMMER MD Sep 16, 2021 10:07
[2021-09-16] MEDS: CEFEPIME 1,000 MG/SWFI 10 ML IV PUSH IV SCH ×4 (10:48→21:10)
[2021-09-16] MEDS: rOPINIRole 0.25 MG (REQUIP) TAB PO SCH ×2 (10:49→21:10)
[2021-09-16] MEDS ORDERED: PROM25TA14 PO (12:29)
[2021-09-16] MEDS ORDERED: OXYC20TA3 PO (12:29)
[2021-09-16] MEDS ORDERED: ROPI0.253 PO (12:29)
[2021-09-16] MEDS ORDERED: INSU100I29 SQ (12:29)
[2021-09-16] MEDS: ENOXAPARIN 30 MG/0.3 ML (LOVENOX) SYR SQ SCH (12:31)
[2021-09-16] MEDS: PROMETHAZINE INJ 25 MG/ML (PHENERGAN) AMP IVP PRN (12:31)
[2021-09-16] MEDS: NS IV 1000 ML 1,000 ML IV SCH ×2 (16:45→21:12)
[2021-09-17] MEDS: RT-ALBUTEROL/IPRATROPIUM 3 ML (DUONEB) VIAL INH SCH ×4 (02:36→21:17)
[2021-09-17] MEDS: PROMETHAZINE INJ 25 MG/ML (PHENERGAN) AMP IVP PRN ×2 (05:16→13:55)
[2021-09-17] MEDS: inSUlin ASPART (NovoLOG) 1 UNIT/0.01 ML (CHARGE PER UNIT) SC SCH ×4 (05:17→21:13)
[2021-09-17 07:02] LABS: BASOPHILS % (AUTO) 1 % (0-10); EOSINOPHILS # (AUTO) 0.4 10^3/uL (0.0-0.3); EOSINOPHILS % (AUTO) 5 % (0-10); HEMATOCRIT 21 % (35-52); LYMPHOCYTES # (AUTO) 1.3 10^3/uL (1.0-4.0); LYMPHOCYTES % (AUTO) 15 % (12-44); MEAN CORPUSCULAR HEMOGLOBIN 28 pg (25-34); MEAN CORPUSCULAR HGB CONC 32 g/dL (32-36); MEAN CORPUSCULAR VOLUME 88 fL (80-99); MEAN PLATELET VOLUME 9.3 fL (9.0-12.2); MONOCYTES # (AUTO) 0.4 10^3/uL (0.0-1.0); MONOCYTES % (AUTO) 4 % (0-12); NEUTROPHILS # (AUTO) 6.2 10^3/uL (1.8-7.8); NEUTROPHILS % (AUTO) 75 % (42-75); PLATELET COUNT 385 10^3/uL (130-400); WHITE BLOOD COUNT 8.4 10^3/uL (4.3-11.0)
[2021-09-17 07:06] LABS: HEMOGLOBIN 6.8 g/dL (11.5-16.0)
[2021-09-17 07:21] LABS: BILIRUBIN,TOTAL 0.2 MG/DL (0.1-1.0); CALCIUM 8.5 MG/DL (8.5-10.1); CREATININE SERUM 1.22 MG/DL (0.60-1.30); MAGNESIUM 1.6 MG/DL (1.6-2.4); PHOSPHORUS 2.9 MG/DL (2.3-4.7); POTASSIUM 3.6 MMOL/L (3.6-5.0); TOTAL PROTEIN 5.4 GM/DL (6.4-8.2)
[2021-09-17] MEDS: rOPINIRole 0.25 MG (REQUIP) TAB PO SCH ×3 (09:00→21:13)
[2021-09-17] MEDS: CEFEPIME 1,000 MG/SWFI 10 ML IV PUSH IV SCH ×4 (09:16→21:13)
[2021-09-17] MEDS ORDERED: NS IV 500 ML 500 ML IV SCH (11:30)
[2021-09-17] MEDS: IRON SUCROSE 200 MG/10 ML (VENOFER) VIAL IV SCH (12:06)
--- NOTE | 2021-09-17 15:02 | Progress Note ---
Subjective Subjective/Events-last exam Patient states that she is having some back pain. Tolerating PO diet but low appetite. Not as talkative as normal. Denies any chest pain or shortness of breath. Review of Systems Pulmonary: No Dyspnea, No Cough Cardiovascular: No: Chest Pain, Palpitations Gastrointestinal: No: Nausea, Vomiting, Abdominal Pain, Diarrhea, Constipation Neurological: Weakness, Incoordination, Confusion Objective Exam Last Set of Vital Signs Vital Signs Date Time Temp Pulse Resp B/P (MAP) Pulse Ox O2 Delivery O2 Flow Rate FiO2 09/17/21 12:00 36.5 95 18 174/89 92 Nasal Cannula 2.00 Capillary Refill : Less Than 3 Seconds I&O Intake and Output 09/17/21 00:00 Intake Total 825 ml Output Total 1500 ml Balance -675 ml Intake Oral 825 ml Output Urine Total 1500 ml # Bowel Movements 1 # Emeses 1 General: Alert (Oriented x2) Lungs: Clear to Auscultation, Normal Air Movement Heart: Regular Rate, No Murmurs Abdomen: Normal Bowel Sounds, Soft, No Tenderness, No Masses Extremities: No Edema, No Tenderness/Swelling Neuro: Normal Speech, Strength at 5/5 X4 Ext, Sensation Intact, Cranial Nerves 3-12 NL Psych/Mental Status: Mental Status NL, Mood NL Results/Procedures Lab Laboratory Tests 09/16/21 15:52: Glucometer 200H 09/16/21 20:07: Stool Occult Blood Immunoassay POSITIVEH 09/16/21 20:27: Glucometer 164H 09/17/21 05:09: Glucometer 233H 09/17/21 06:53: White Blood Count 8.4, Red Blood Count 2.43L, Hemoglobin 6.8*L, Hematocrit 21L, Mean Corpuscular Volume 88, Mean Corpuscular Hemoglobin 28, Mean Corpuscular Hemoglobin Concent 32, Red Cell Distribution Width 15.6H, Platelet Count 385, Mean Platelet Volume 9.3, Immature Granulocyte % (Auto) 1, Neutrophils (%) (Auto) 75, Lymphocytes (%) (Auto) 15, Monocytes (%) (Auto) 4, Eosinophils (%) (Auto) 5, Basophils (%) (Auto) 1, Neutrophils # (Auto) 6.2, Lymphocytes # (Auto) 1.3, Monocytes # (Auto) 0.4, Eosinophils # (Auto) 0.4H, Basophils # (Auto) 0.0, Immature Granulocyte # (Auto) 0.0, Sodium Level 141, Potassium Level 3.6, Chloride Level 117H, Carbon Dioxide Level 11L, Anion Gap 13, Blood Urea Nitrogen 28H, Creatinine 1.22, Estimat Glomerular Filtration Rate 45, BUN/Creatinine Ratio 23, Glucose Level 204H, Calcium Level 8.5, Corrected Calcium 10.1, Phosphorus Level 2.9, Magnesium Level 1.6, Total Bilirubin 0.2, Aspartate Amino Transf (AST/SGOT) 12, Alanine Aminotransferase (ALT/SGPT) 10, Alkaline Phosphatase 87, Total Protein 5.4L, Albumin 2.0L 09/17/21 11:06: Glucometer 216H Microbiology 09/13/21 MRSA Screen - Final, Complete MRSA not isolated 09/13/21 Blood Culture - Preliminary, Resulted No growth Assessment/Plan Assessment/Plan (1) Uncontrolled type 1 diabetes mellitus with hyperglycemia Status: Acute Assessment & Plan: 09/15: Switch fluids to NS from D5 due to blood sugars trending up, advance diet as tolerated 1026: switched to SSI A due to low blood sugars over night and poor appetite 09/17: Continue to monitor AC/HS (2) Hypoglycemia Status: Acute (3) RLL pneumonia Status: Acute Assessment & Plan: 09/15: Continue Cefepime and titrate oxygen as tolerated 09/16: Continue to titrate oxygen as tolerated (4) Iron deficiency anemia due to chronic blood loss Status: Acute Assessment & Plan: 09/17: Hgb continues to trend down, Venofer started, General surgery consulted due to occult + stool (5) Acute kidney injury superimposed on chronic kidney disease Status: Acute Assessment & Plan: 09/15: Gentle IV/PO hydration 09/16: Cr trending down with PO hydration, continue to monitor (6) Chronic pain Status: Chronic Assessment & Plan: 09/16: Change pain medication to PRN from scheduled due to drowsiness Qualifiers: Qualified Codes: G89.4 - Chronic pain syndrome (7) DVT prophylaxis Status: Acute Assessment & Plan: - Lovenox Clinical Quality Measures Smoking Cessation Counseling: Counseling-Symptomatic: 3-10 Minutes ALEXX ZIMMER MD Sep 17, 2021 15:02
[2021-09-17 15:06] VITALS: BP 187/88
[2021-09-17 15:31] VITALS: BP 147/68
[2021-09-17 17:50] VITALS: BP 191/91
[2021-09-17] MEDS ORDERED: hydrALAZINE (APESOLINE) 20 MG/ML VIAL IV NR (18:15)
[2021-09-17] MEDS ORDERED: amLODIPine 10 MG (NORVASC) TAB PO NR (18:15)
[2021-09-18 00:27] LABS: HEMOGLOBIN 9.1 g/dL (11.5-16.0)
[2021-09-18] MEDS: RT-ALBUTEROL/IPRATROPIUM 3 ML (DUONEB) VIAL INH SCH ×4 (02:54→21:30)
[2021-09-18] MEDS: inSUlin ASPART (NovoLOG) 1 UNIT/0.01 ML (CHARGE PER UNIT) SC SCH ×4 (05:52→20:56)
[2021-09-18 06:25] LABS: BASOPHILS # (AUTO) 0.1 10^3/uL (0.0-0.1); BASOPHILS % (AUTO) 1 % (0-10); EOSINOPHILS # (AUTO) 0.6 10^3/uL (0.0-0.3); EOSINOPHILS % (AUTO) 7 % (0-10); HEMATOCRIT 29 % (35-52); HEMOGLOBIN 9.5 g/dL (11.5-16.0); LYMPHOCYTES # (AUTO) 1.7 10^3/uL (1.0-4.0); LYMPHOCYTES % (AUTO) 21 % (12-44); MEAN CORPUSCULAR HEMOGLOBIN 28 pg (25-34); MEAN CORPUSCULAR HGB CONC 32 g/dL (32-36); MEAN CORPUSCULAR VOLUME 85 fL (80-99); MEAN PLATELET VOLUME 9.5 fL (9.0-12.2); MONOCYTES # (AUTO) 0.5 10^3/uL (0.0-1.0); MONOCYTES % (AUTO) 6 % (0-12); NEUTROPHILS # (AUTO) 5.5 10^3/uL (1.8-7.8); NEUTROPHILS % (AUTO) 65 % (42-75); PLATELET COUNT 479 10^3/uL (130-400); WHITE BLOOD COUNT 8.4 10^3/uL (4.3-11.0)
[2021-09-18 06:32] LABS: ALBUMIN 2.5 GM/DL (3.2-4.5); POTASSIUM 3.2 MMOL/L (3.6-5.0)
[2021-09-18 06:33] LABS: CALCIUM 9.1 MG/DL (8.5-10.1)
[2021-09-18 06:35] LABS: TOTAL PROTEIN 6.5 GM/DL (6.4-8.2)
[2021-09-18 06:36] LABS: BILIRUBIN,TOTAL 0.4 MG/DL (0.1-1.0)
[2021-09-18 06:38] LABS: CREATININE SERUM 1.13 MG/DL (0.60-1.30); PHOSPHORUS 2.4 MG/DL (2.3-4.7)
[2021-09-18 06:41] LABS: MAGNESIUM 1.4 MG/DL (1.6-2.4)
--- NOTE | 2021-09-18 07:06 | Consultation - Surgery ---
OMARI FISH 09/18/21 0706: History of Present Illness History of Present Illness Patient Consulted On(joshua/time) 09/18/21 07:05 Date Seen by Provider: Sep 18, 2021 Time Seen by Provider: 07:10 Reason for Visit: Surgery Consult (+ Fecal Occult Blood Test) History of Present Illness Per ER admission: To ER by EMS from home with reports of hypoglycemia and abdominal/back pain. She reportedly took 4 Percocet within the past few hours for her abdomen and back pain. Uncertain how much insulin she took or when. No vomiting. EMS found her to be hypoglycemic with a blood sugar of 39. They initiated IV access and started a D10 infusion. Upon arrival to ER her sugar is up to 94. She did have some hypotension in route and subsequently they initi ated a bag of IV fluids. On arrival to ER patient complains of severe mid back and abdominal pain worse with any movement. Patient is requested surgical consult from Dr. Rico for a positive fecal occult blood test. Pt reporting that back still hurts, no abdominal pain. Hgb 6.8 on 09/17, given 1 unit blood, then Hgb 9.1 on 09/17 Pt has positive FOBT Had a colonoscopy in 2018. Had an EGD in January 2021. Postoperative dx shows gastritis, hiatal hernia, and esophageal ulcerations. Pathology report shows the following: no abnormalities in stomach antrum or body; GE junction erosive esophagitis, no intestinal metaplasia; Esophagus chronic esophagitis w/ focal active inflammation, no glandular epithelium. Allergies and Home Medications Allergies Coded Allergies: ketorolac (Verified Allergy, Severe, ANAPHYLAXIS, PT TAKES ASA AT HOME, 03/06/19) scopolamine (Verified Allergy, Mild, Rash, 03/21/19) exenatide (Verified Allergy, Unknown, NAUSEA, 03/06/19) NON STOP VOMITING latex (Verified Allergy, Unknown, RASH, 03/06/19) metoclopramide (Verified Allergy, Unknown, RESTLESS LEGS, 03/06/19) erythromycin base (Verified Adverse Reaction, Unknown, 03/21/19) Patient Home Medication List Amlodipine Besylate (Amlodipine Besylate) 10 Mg Tablet, 10 MG PO DAILY, (Reported) Entered as Reported by: NAEL ADBI on 05/15/21 4104 Last Action: Continued Atorvastatin Calcium (Atorvastatin Calcium) 20 Mg Tablet, 20 MG PO HS, (Reported) Entered as Reported by: NAEL ABDI on 07/18/20 1357 Last Action: Reviewed Gabapentin (Gabapentin) 800 Mg Tablet, 1,600 MG PO HS, (Reported) Entered as Reported by: DUSTY WINN on 12/17/19 1019 Last Action: Reviewed Gabapentin (Gabapentin) 800 Mg Tablet, 800 MG PO DAILY, (Reported) Entered as Reported by: DENISSE JOE on 03/29/20 1053 Last Action: Reviewed Insulin Detemir (Levemir Flextouch) 100 Unit/1 Ml Insuln.pen, 15 UNIT SQ HS, (Reported) Entered as Reported by: NAEL ABDI on 09/16/21 122 Last Action: Reviewed Metoprolol Succinate (Metoprolol Succinate) 100 Mg Tab.er.24h, 100 MG PO DAILY, (Reported) Entered as Reported by: NAEL ABDI on 05/15/21 1506 Last Action: Continued Oxycodone HCl (Oxycodone HCl) 20 Mg Tablet, 20 MG PO Q4 -6H, (Reported) Entered as Reported by: NAEL ABDI on 09/16/21 122 Last Action: Reviewed Pantoprazole Sodium (Pantoprazole Sodium) 40 Mg Tablet., 40 MG PO BIDAC, (Reported) Entered as Reported by: NAEL ABDI on 04/10/21 100 Last Action: Reviewed Promethazine HCl (Promethazine Tablet) 25 Mg Tablet, 25 MG PO Q12H PRN for NAUSEA/VOMITING-1ST LINE, (Reported) Entered as Reported by: NAEL ABDI on 09/16/211228 Last Action: Reviewed Ropinirole HCl (Ropinirole HCl) 0.25 Mg Tablet, 0.25 MG PO HS, (Reported) Entered as Reported by: NAEL ABDI on 09/16/21 122 Last Action: Reviewed Discontinued Medications Aspirin (Aspirin EC) 81 Mg Tablet.dr, 81 MG PO DAILY, (Reported) Discontinued Reason: No Longer Taking Entered as Reported by: NAEL ABDI on 04/10/21 1009 Last Action: Discontinued Insulin Aspart (Novolog Flexpen) 300 Units/3 Ml Solution, UNITS SQ TIDWM, (Reported) Discontinued Reason: No Longer Taking Entered as Reported by: NAEL ABDI on 04/30/21 1235 Last Action: Discontinued Insulin Determir (Levemir) 1,000 Units/10 Ml Soln, 15 UNIT SQ HS Discontinued Reason: Duplicate Order Prescribed by: GERARDO RITTER on 07/16/21 1013 Last Action: Discontinued Magnesium Oxide (Magnesium) 400 Mg Tablet, 400 MG PO HS, (Reported) Discontinued Reason: No Longer Taking Entered as Reported by: AMELIA BOSS on 07/14/21 1131 Last Action: Discontinued Oxycodone HCl (Oxycodone HCl) 15 Mg Tablet, 15 MG PO QID PRN for PAIN-SEVERE (8- 10), (Reported) Discontinued Reason: Duplicate Order Entered as Reported by: NAEL ABDI on 04/10/21 1009 Last Action: Discontinued Past Oqvlfnm-Djolna-Lvhyfo Hx Patient Social History Drug of Choice: NARCOTIC ABUSE Smoking Status: Current Everyday Smoker Type Used: Cigarettes 2nd Hand Smoke Exposure: No Recent Hopitalizations: Yes Alcohol Use?: No Substance type: Opiates/Opioids Have you traveled recently?: No Immunizations Up To Date Tetanus Booster (TDap): Unknown PED Vaccines UTD: No Date of Pneumonia Vaccine: Nov 06, 2019 Date of Influenza Vaccine: Nov 22, 2019 Seasonal Allergies Seasonal Allergies: Yes Surgeries History of Surgeries: Yes (EGD and colonoscopy) Surgeries: Cardiac, Coronary Stent, Ear Surgery, Gallbladder, Orthopedic, Renal Respiratory History of Respiratory Disorde: Yes Respiratory Disorders: Chronic Bronchitis, Sleep Apnea Cardiovascular History of Cardiac Disorders: Yes (DVT'S IN ARMS; CARDIAC STENT X 1; CAROTID DISEASE;LINQ DEVICE;SEVERE PAD) Cardiac Disorders: Chronic Edema/Swelling, Coronary Artery Disease, Deep Vein Thrombosis, High Cholesterol, Hypertension, Palpitations, Peripheral Vascular Neurological History of Neurological Disord: Yes (NEUROPATHY IN HANDS AND FEET) Neurological Disorders: Headaches /Migraines, Neuropathy Reproductive System Hx Reproductive Disorders: No Sexually Transmitted Disease: No HIV/AIDS: No 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 Disorders: Denies 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 Genitourinary History of Genitourinary Disor: Yes Genitourinary Disorders: Bladder Infection, Kidney Stones, Renal Failure Gastrointestinal History of Gastrointestinal Di: Yes Gastrointestinal Disorders: Gastroesophageal Reflux Musculoskeletal History of Musculoskeletal Dis: Yes (CHRONIC GENERALIZED PAIN;CHRONIC BILAT SHOULDER PAIN;CHRONIC NECK PAIN ) Musculoskeletal Disorders: Degenerate Disk Disease, Fibromyalgia, Chronic Back Pain Endocrine History of Endocrine Disorders: Yes (NON-COMPLAINT;MULTIPLE EPISODES OF DKA- EASILY CONTROLLED ON INSULIN IN HOSP) Endocrine Disorders: Diabetes, Insulin dep HEENT History of HEENT Disorders: Yes (GLASSES; S/P BMT'S;BILAT CATARACT SURGERY 10/2020) HEENT Disorders: Cataract, Chronic Ear Infection Loss of Vision: Bilateral Hearing Impairment: Hard of Hearing Cancer History of Cancer: No Psychosocial History of Psychiatric Problem: Yes Behavioral Health Disorders: Anxiety Integumentary History of Skin or Integumenta: Yes Skin/Integumentary Disorders: Psoriasis Blood Transfusions History of Blood Disorders: No Adverse Reaction to a Blood Tr: No Family Medical History Significant Family History: Cancer, Diabetes, Hypertension Family Medial History: Cancer of mouth 19 FATHER ( of esophogeal cancer.) Cardiovascular disease 19 MOTHER G8 BROTHER Completed stroke 19 FATHER G8 BROTHER Diabetes mellitus G8 BROTHER FH: lung cancer 19 MOTHER Hypertension 19 FATHER Kidney disease 19 FATHER Myocardial infarction 19 MOTHER G8 BROTHER Respiratory disorder No Family History of: AIDS Review of Systems-General Constitutional: No chills, No diaphoresis; malaise, weakness EENTM: No hearing loss, No blurred vision, No double vision Respiratory: cough, dyspnea on exertion Cardiovascular: No chest pain Gastrointestinal: No abdominal pain; loss of appetite Psychiatric/Neurological: Weakness Physical Exam-General Problems Physical Exam Vital Signs Vital Signs - First Documented 09/14/21 12:00 O2 Flow Rate 2.00 Capillary Refill : Less Than 3 Seconds General Appearance: other (Elderly female. Does not appear well nourished. Seems very tired. Only responds to yes/no questions. Had a few one word response s.) Eyes: Bilateral Eye Normal Inspection HEENT: No scleral icterus (R), No scleral icterus (L) Neck: non-tender, full range of motion, supple Respiratory: chest non-tender; No rales, No rhonchi, No wheezing; other (Patient has breath sounds that was slightly decreased. had shallow breathing and would not take a deep breath in for physical exam.) Cardiovascular: regular rate, rhythm (?faint systolic murmur) Peripheral Pulses: 2+ Dorsalis Pedis (R), 2+ Left Dors-Pedis (L), 2+ Radial Pulses (R), 2+ Radial Pulses (L) Gastrointestinal: normal bowel sounds, non tender, soft, no organomegaly Data Review Labs Laboratory Tests 09/17/21 11:06: Glucometer 216H 09/17/21 13:56: Glucometer 177H 09/17/21 15:22: Glucometer 174H 09/17/21 20:53: Glucometer 260H 09/17/21 22:22: Hemoglobin 9.1#L, Hematocrit 28L 09/18/21 05:33: Glucometer 248H 09/18/21 05:56: Hemoglobin 9.5L, Hematocrit 29L, White Blood Count 8.4, Red Blood Count 3.44L, Mean Corpuscular Volume 85, Mean Corpuscular Hemoglobin 28, Mean Corpuscular Hemoglobin Concent 32, Red Cell Distribution Width 16.3H, Platelet Count 479H, Mean Platelet Volume 9.5, Immature Granulocyte % (Auto) 1, Neutrophils (%) (Auto) 65, Lymphocytes (%) (Auto) 21, Monocytes (%) (Auto) 6, Eosinophils (%) (Auto) 7, Basophils (%) (Auto) 1, Neutrophils # (Auto) 5.5, Lymphocytes # (Auto) 1.7, Monocytes # (Auto) 0.5, Eosinophils # (Auto) 0.6H, Basophils # (Auto) 0.1, Immature Granulocyte # (Auto) 0.1, Sodium Level 142, Potassium Level 3.2L, Chloride Level 115H, Carbon Dioxide Level 11L, Anion Gap 16H, Blood Urea Nitrogen 20H, Creatinine 1.13, Estimat Glomerular Filtration Rate 49, BUN/Creatinine Ratio 18, Glucose Level 267H, Calcium Level 9.1, Corrected Calcium 10.3H, Phosphorus Level 2.4, Magnesium Level 1.4L, Total Bilirubin 0.4, Aspartate Amino Transf (AST/SGOT) 10, Alanine Aminotransferase (ALT/SGPT) 9, Alkaline Phosphatase 95, Total Protein 6.5, Albumin 2.5L Microbiology 09/13/21 MRSA Screen - Final, Complete MRSA not isolated 09/13/21 Blood Culture - Preliminary, Resulted No growth Assessment/Plan Assessment/Plan Assessment/Plan Positive Fecal Occult Blood Test- EGD and Colonoscopy to find possible GI bleeding. Patient told me she does not want an EGD or Colonoscopy Anemia- Give blood transfusion Clinical Quality Measures Smoking Cessation Counseling: Counseling-Symptomatic: 3-10 Minutes ORI AYON DO 09/18/21 1334: History of Present Illness History of Present Illness Time Seen by Provider: 11:58 History of Present Illness When I saw pt she was lying in her bed and appeared comfortable. Nurse states she had an episode of emesis, but it looked like bile. Spoke with Dr. Rico who states pt had changed her mind and is now amenable to "scopes". Pt denied he matemesis or coffee ground emesis. Does admit to feeling weak. Allergies and Home Medications Allergies Coded Allergies: ketorolac (Verified Allergy, Severe, ANAPHYLAXIS, PT TAKES ASA AT HOME, 03/06/19) scopolamine (Verified Allergy, Mild, Rash, 03/21/19) exenatide (Verified Allergy, Unknown, NAUSEA, 03/06/19) NON STOP VOMITING latex (Verified Allergy, Unknown, RASH, 03/06/19) metoclopramide (Verified Allergy, Unknown, RESTLESS LEGS, 03/06/19) erythromycin base (Verified Adverse Reaction, Unknown, 03/21/19) Patient Home Medication List Home Medication List Reviewed: Yes Amlodipine Besylate (Amlodipine Besylate) 10 Mg Tablet, 10 MG PO DAILY, (Reported) Entered as Reported by: NAEL ABDI on 05/15/21 1506 Last Action: Continued Atorvastatin Calcium (Atorvastatin Calcium) 20 Mg Tablet, 20 MG PO HS, (Reported) Entered as Reported by: NAEL ABDI on 07/18/20 1357 Last Action: Reviewed Gabapentin (Gabapentin) 800 Mg Tablet, 1,600 MG PO HS, (Reported) Entered as Reported by: DUSTY WINN on 12/17/19 1019 Last Action: Reviewed Gabapentin (Gabapentin) 800 Mg Tablet, 800 MG PO DAILY, (Reported) Entered as Reported by: DENISSE JOE on 03/29/20 1053 Last Action: Reviewed Insulin Detemir (Levemir Flextouch) 100 Unit/1 Ml Insuln.pen, 15 UNIT SQ HS, (Reported) Entered as Reported by: NAEL ABDI on 09/16/21 1229 Last Action: Reviewed Metoprolol Succinate (Metoprolol Succinate) 100 Mg Tab.er.24h, 100 MG PO DAILY, (Reported) Entered as Reported by: NAEL ABDI on 05/15/21 1506 Last Action: Continued Oxycodone HCl (Oxycodone HCl) 20 Mg Tablet, 20 MG PO Q4 -6H, (Reported) Entered as Reported by: NAEL ABDI on 09/16/211228 Last Action: Reviewed Pantoprazole Sodium (Pantoprazole Sodium) 40 Mg Tablet., 40 MG PO BIDAC, (Reported) Entered as Reported by: NAEL ABDI on 04/10/21 100 Last Action: Reviewed Promethazine HCl (Promethazine Tablet) 25 Mg Tablet, 25 MG PO Q12H PRN for NAUSEA/VOMITING-1ST LINE, (Reported) Entered as Reported by: NAEL ABDI on 09/16/21 122 Last Action: Reviewed Ropinirole HCl (Ropinirole HCl) 0.25 Mg Tablet, 0.25 MG PO HS, (Reported) Entered as Reported by: NAEL ABDI on 09/16/21 122 Last Action: Reviewed Discontinued Medications Aspirin (Aspirin EC) 81 Mg Tablet.dr, 81 MG PO DAILY, (Reported) Discontinued Reason: No Longer Taking Entered as Reported by: NAEL ABDI on 04/10/21 100 Last Action: Discontinued Insulin Aspart (Novolog Flexpen) 300 Units/3 Ml Solution, UNITS SQ TIDWM, (Reported) Discontinued Reason: No Longer Taking Entered as Reported by: NAEL ABDI on 04/30/21 1235 Last Action: Discontinued Insulin Determir (Levemir) 1,000 Units/10 Ml Soln, 15 UNIT SQ HS Discontinued Reason: Duplicate Order Prescribed by: GERARDO RITTER on 07/16/21 1013 Last Action: Discontinued Magnesium Oxide (Magnesium) 400 Mg Tablet, 400 MG PO HS, (Reported) Discontinued Reason: No Longer Taking Entered as Reported by: AMELIA BOSS on 07/14/21 1131 Last Action: Discontinued Oxycodone HCl (Oxycodone HCl) 15 Mg Tablet, 15 MG PO QID PRN for PAIN-SEVERE (8- 10), (Reported) Discontinued Reason: Duplicate Order Entered as Reported by: NAEL ABDI on 04/10/21 100 Last Action: Discontinued Past Tolaqhf-Nmuebq-Czriht Hx Patient Social History Smoking Status: Current Everyday Smoker Alcohol Use?: No Surgeries History of Surgeries: Yes (Portacath placement, multiple EGDs and colonoscopy) Surgeries: Cardiac (LINQ placement), Coronary Stent Respiratory History of Respiratory Disorde: Yes Respiratory Disorders: Chronic Bronchitis Cardiovascular History of Cardiac Disorders: Yes Cardiac Disorders: Coronary Artery Disease, Peripheral Vascular Neurological History of Neurological Disord: Yes Neurological Disorders: Neuropathy Genitourinary History of Genitourinary Disor: Yes Genitourinary Disorders: Renal Failure Gastrointestinal History of Gastrointestinal Di: Yes Gastrointestinal Disorders: Gastrointestinal Bleed, Esophagitis Musculoskeletal History of Musculoskeletal Dis: Yes Musculoskeletal Disorders: Arthritis Endocrine History of Endocrine Disorders: Yes Endocrine Disorders: Diabetes, Insulin dep HEENT History of HEENT Disorders: Yes HEENT Disorders: Macular Degeneration Loss of Vision: Bilateral Hearing Impairment: Hard of Hearing Cancer History of Cancer: No Psychosocial History of Psychiatric Problem: Yes Behavioral Health Disorders: Anxiety Integumentary History of Skin or Integumenta: Yes Skin/Integumentary Disorders: Psoriasis Family Medical History Significant Family History: Heart Disease, Cancer, Renal Disease, Stroke Family Medial History: Cancer of mouth 19 FATHER ( of esophogeal cancer.) Cardiovascular disease 19 MOTHER G8 BROTHER Completed stroke 19 FATHER G8 BROTHER Diabetes mellitus G8 BROTHER FH: lung cancer 19 MOTHER Hypertension 19 FATHER Kidney disease 19 FATHER Myocardial infarction 19 MOTHER G8 BROTHER Respiratory disorder No Family History of: AIDS Review of Systems-General Constitutional: No chills, No diaphoresis; malaise EENTM: No hearing loss, No blurred vision, No double vision Respiratory: cough, dyspnea on exertion Cardiovascular: No chest pain; Hx of Intervention Gastrointestinal: No abdominal pain; dysphagia, loss of appetite Genitourinary: decreased output, incontinence Musculoskeletal: joint pain, joint swelling, muscle stiffness Skin: No change in color, No change in hair/nails Psychiatric/Neurological: Anxiety, Weakness Physical Exam-General Problems Physical Exam General Appearance: other (Elderly female. Does not appear well nourished. Seems very tired. Only responds to yes/no questions. Had a few one word responses.) Eyes: Bilateral Eye PERRL, Bilateral Eye EOMI HEENT: No scleral icterus (R), No scleral icterus (L); other (dry mucosa) Neck: non-tender, full range of motion, supple Respiratory: chest non-tender; No rales, No rhonchi, No wheezing; other (Patient has breath sounds that was slightly decreased. had shallow breathing and would not take a deep breath in for physical exam.) Cardiovascular: regular rate, rhythm (?faint systolic murmur), no murmur Gastrointestinal: normal bowel sounds, non tender, soft, no organomegaly Rectal: deferred Back: no CVA tenderness, no vertebral tenderness Extremities: no pedal edema, no calf tenderness Neurologic/Psychiatric: alert, depressed affect Skin: warm/dry, pallor Lymphatic: no adenopathy (neck, axilla or groin) Data Review Radiology Date of Exam:09/13/21 CT ABDOMEN/PELVIS WO Procedure: CT abdomen and pelvis without contrast. technique: Multiple contiguous axial images were obtained through the abdomen and pelvis without the use of intravenous contrast. Auto Exposure Controls were utilized during the CT exam to meet ALARA standards for radiation dose reduction. Indication: Generalized abdominal pain. Comparison: 06/25/2020. Discussion: Groundglass infiltrates within the lung bases, right greater than left, likely pneumonia, recommend clinical correlation for viral pneumonia. Mild cardiomegaly stable. No pleural or pericardial fluid. The gallbladder appears to be surgically absent, stable. The liver, pancreas, stomach, spleen, and adrenal glands are unremarkable. No renal stone or hydronephrosis. The aorta is normal in caliber and contains moderate atherosclerotic plaque. Urinary bladder is decompressed by a Bateman catheter. The uterus appears within normal limits for age. No obstruction, pneumatosis or pneumoperitoneum. No ascites or adenopathy. Mild anasarca noted within the body wall. Postoperative changes within the lumbar spine along with diffuse advanced degenerative disease throughout the visualized thoracic spine is stable. Impression: 1. Infiltrates within the lung bases suggests pneumonia. 2. Mild anasarca. Dictated by: Dictated on workstation # [id number] Dict: 09/13/21 2223 Trans: 09/14/219 [facility] [id number] Interpreted by: ALBINA HENSLEY MD Electronically signed by: ALBINA HENSLEY MD 09/14/21 0010 Assessment/Plan Assessment/Plan Assessment/Plan Positive Fecal Occult Blood Test- will work up with EGD; Pt had Colonoscopy in 2018 and no polyps seen, only diverticula Anemia- pt had blood transfusion DM -uncontrolled CAD, PVD Supervisory-Addendum Brief Verification & Attestation Participated in pt care: history, MDM, physical Personally performed: exam, history, MDM, supervision of care Care discussed with: Medical Student Procedures: n/a Verification and Attestation of Medical Student E/M Service A medical student performed and documented this service. I then reviewed and verified all information documented by the medical student and made modifications to such information, when appropriate. I personally performed a physical exam, medical decision making and then discussed any differences be tween the notes and made revisions as necessary to create one note. Ori Ayon , 09/18/21 , 13:40 OMARI FISH Sep 18, 2021 07:06 ORI AYON DO Sep 18, 2021 13:34
[2021-09-18] MEDS: rOPINIRole 0.25 MG (REQUIP) TAB PO SCH ×2 (08:40→21:48)
[2021-09-18] MEDS: amLODIPine 10 MG (NORVASC) TAB PO SCH (08:40)
[2021-09-18] MEDS: NS IV 1000 ML 1,000 ML IV SCH (08:55)
[2021-09-18] MEDS ORDERED: KCL 20 MEQ TAB (K-DUR) PO NR (09:37)
[2021-09-18] MEDS: PROMETHAZINE INJ 25 MG/ML (PHENERGAN) AMP IVP PRN ×2 (10:40→10:46)
[2021-09-18] MEDS ORDERED: meTOprolol SUCCINATE 100 MG (TOPROL XL) TAB PO ONE (12:15)
[2021-09-18] MEDS ORDERED: lisINopril 20 MG (PRINIVIL) TABLET PO ONE (12:15)
--- NOTE | 2021-09-18 14:17 | Progress Note ---
Subjective Subjective/Events-last exam Patient is feeling better this AM. Tolerating more PO diet. States that she is having lower back pain but otherwise feeling better. Review of Systems General: Fatigue, Malaise Pulmonary: No Dyspnea, No Cough Cardiovascular: No: Chest Pain, Palpitations, Edema Gastrointestinal: Nausea, Abdominal Pain; No: Vomiting, Diarrhea, Constipation Neurological: Weakness, Incoordination Objective Exam Last Set of Vital Signs Vital Signs Date Time Temp Pulse Resp B/P (MAP) Pulse Ox O2 Delivery O2 Flow Rate FiO2 09/18/21 12:39 123 09/18/21 11:50 36.8 20 192/91 97 Room Air 09/18/21 02:54 2.00 Capillary Refill : Less Than 3 Seconds I&O Intake and Output 09/18/21 00:00 Intake Total 660 ml Output Total 1000 ml Balance -340 ml Intake Oral 650 ml IV Total 10 ml Output Urine Total 1000 ml # Voids 3 # Bowel Movements 3 General: Alert, Oriented X3, No Acute Distress HEENT: Mucous Memb Moist/Osmond Lungs: Clear to Auscultation, Normal Air Movement Heart: Regular Rate, No Murmurs Abdomen: Normal Bowel Sounds, Soft, No Tenderness, No Masses Extremities: No Edema, No Tenderness/Swelling Skin: No Rashes Neuro: Normal Speech, Strength at 5/5 X4 Ext, Sensation Intact, Cranial Nerves 3-12 NL Psych/Mental Status: Mental Status NL, Mood NL Results/Procedures Lab Laboratory Tests 09/17/21 15:22: Glucometer 174H 09/17/21 20:53: Glucometer 260H 09/17/21 22:22: Hemoglobin 9.1#L, Hematocrit 28L 09/18/21 05:33: Glucometer 248H 09/18/21 05:56: White Blood Count 8.4, Red Blood Count 3.44L, Hemoglobin 9.5L, Hematocrit 29L, Mean Corpuscular Volume 85, Mean Corpuscular Hemoglobin 28, Mean Corpuscular Hemoglobin Concent 32, Red Cell Distribution Width 16.3H, Platelet Count 479H, Mean Platelet Volume 9.5, Immature Granulocyte % (Auto) 1, Neutrophils (%) (Auto) 65, Lymphocytes (%) (Auto) 21, Monocytes (%) (Auto) 6, Eosinophils (%) (Auto) 7, Basophils (%) (Auto) 1, Neutrophils # (Auto) 5.5, Lymphocytes # (Auto) 1.7, Monocytes # (Auto) 0.5, Eosinophils # (Auto) 0.6H, Basophils # (Auto) 0.1, Immature Granulocyte # (Auto) 0.1, Sodium Level 142, Potassium Level 3.2L, Chloride Level 115H, Carbon Dioxide Level 11L, Anion Gap 16H, Blood Urea Nitrogen 20H, Creatinine 1.13, Estimat Glomerular Filtration Rate 49, BUN/Creatinine Ratio 18, Glucose Level 267H, Calcium Level 9.1, Corrected Calcium 10.3H, Phosphorus Level 2.4, Magnesium Level 1.4L, Total Bilirubin 0.4, Aspartate Amino Transf (AST/SGOT) 10, Alanine Aminotransferase (ALT/SGPT) 9, Alkaline Phosphatase 95, Total Protein 6.5, Albumin 2.5L 09/18/21 10:23: Glucometer 243H Microbiology 09/13/21 MRSA Screen - Final, Complete MRSA not isolated 09/13/21 Blood Culture - Preliminary, Resulted No growth Radiology Date of Exam:09/13/21 CT ABDOMEN/PELVIS WO Procedure: CT abdomen and pelvis without contrast. technique: Multiple contiguous axial images were obtained through the abdomen and pelvis without the use of intravenous contrast. Auto Exposure Controls were utilized during the CT exam to meet ALARA standards for radiation dose reduction. Indication: Generalized abdominal pain. Comparison: 06/25/2020. Discussion: Groundglass infiltrates within the lung bases, right greater than left, likely pneumonia, recommend clinical correlation for viral pneumonia. Mild cardiomegaly stable. No pleural or pericardial fluid. The gallbladder appears to be surgically absent, stable. The liver, pancreas, stomach, spleen, and adrenal glands are unremarkable. No renal stone or hydronephrosis. The aorta is normal in caliber and contains moderate atherosclerotic plaque. Urinary bladder is decompressed by a Bateman catheter. The uterus appears within normal limits for age. No obstruction, pneumatosis or pneumoperitoneum. No ascites or adenopathy. Mild anasarca noted within the body wall. Postoperative changes within the lumbar spine along with diffuse advanced degenerative disease throughout the visualized thoracic spine is stable. Impression: 1. Infiltrates within the lung bases suggests pneumonia. 2. Mild anasarca. Dictated by: Dictated on workstation # [id number] Dict: 09/13/213 Trans: 09/14/[address] [facility] [id number] Interpreted by: ALBINA HENSLEY MD Electronically signed by: ALBINA HENSLEY MD 09/14/219 Assessment/Plan Assessment/Plan (1) Uncontrolled type 1 diabetes mellitus with hyperglycemia Status: Acute Assessment & Plan: 09/15: Switch fluids to NS from D5 due to blood sugars trending up, advance diet as tolerated 102: switched to SSI A due to low blood sugars over night and poor appetite 09/17: Continue to monitor AC/HS (2) RLL pneumonia Status: Acute Assessment & Plan: 09/15: Continue Cefepime and titrate oxygen as tolerated 09/16: Continue to titrate oxygen as tolerated 09/18: Will continue to titrate oxygen as tolerated, continue IV antibiotics (3) Iron deficiency anemia due to chronic blood loss Status: Acute Assessment & Plan: 09/17: Hgb continues to trend down, Venofer started, General surgery consulted due to occult + stool 09/18: Bakari reviewed colonoscopy from 2018, plan for EGD during admission, continue iron replacement (4) Chronic pain Status: Chronic Assessment & Plan: 09/16: Change pain medication to PRN from scheduled due to drowsiness Qualifiers: Qualified Codes: G89.4 - Chronic pain syndrome (5) HTN (hypertension) Status: Chronic Assessment & Plan: 09/18: Restarted home meds, added lisinopril today, continue to monitor blood pressure Qualifiers: Qualified Codes: I10 - Essential (primary) hypertension (6) Hypoglycemia Status: Resolved (7) Acute kidney injury superimposed on chronic kidney disease Status: Resolved Assessment & Plan: 09/15: Gentle IV/PO hydration 09/16: Cr trending down with PO hydration, continue to monitor (8) DVT prophylaxis Status: Acute Assessment & Plan: - Lovenox Clinical Quality Measures Smoking Cessation Counseling: Counseling-Symptomatic: 3-10 Minutes ALEXX ZIMMER MD Sep 18, 2021 14:17
[2021-09-18 15:26] VITALS: BP 168/77
[2021-09-19 05:27] LABS: BASOPHILS # (AUTO) 0.1 10^3/uL (0.0-0.1); BASOPHILS % (AUTO) 1 % (0-10); EOSINOPHILS # (AUTO) 0.5 10^3/uL (0.0-0.3); EOSINOPHILS % (AUTO) 6 % (0-10); HEMATOCRIT 28 % (35-52); LYMPHOCYTES # (AUTO) 2.5 10^3/uL (1.0-4.0); LYMPHOCYTES % (AUTO) 29 % (12-44); MEAN CORPUSCULAR HEMOGLOBIN 27 pg (25-34); MEAN CORPUSCULAR HGB CONC 32 g/dL (32-36); MEAN CORPUSCULAR VOLUME 85 fL (80-99); MEAN PLATELET VOLUME 8.9 fL (9.0-12.2); MONOCYTES # (AUTO) 0.6 10^3/uL (0.0-1.0); MONOCYTES % (AUTO) 7 % (0-12); NEUTROPHILS # (AUTO) 4.7 10^3/uL (1.8-7.8); NEUTROPHILS % (AUTO) 55 % (42-75); PLATELET COUNT 399 10^3/uL (130-400); WHITE BLOOD COUNT 8.5 10^3/uL (4.3-11.0)
[2021-09-19 05:39] LABS: ALBUMIN 2.4 GM/DL (3.2-4.5)
[2021-09-19 05:40] LABS: POTASSIUM 3.2 MMOL/L (3.6-5.0)
[2021-09-19 05:41] LABS: CALCIUM 8.1 MG/DL (8.5-10.1)
[2021-09-19] MEDS: inSUlin ASPART (NovoLOG) 1 UNIT/0.01 ML (CHARGE PER UNIT) SC SCH ×4 (05:41→21:27)
[2021-09-19 05:42] LABS: TOTAL PROTEIN 5.9 GM/DL (6.4-8.2)
[2021-09-19 05:44] LABS: BILIRUBIN,TOTAL 0.3 MG/DL (0.1-1.0)
[2021-09-19 05:46] LABS: CREATININE SERUM 1.04 MG/DL (0.60-1.30)
[2021-09-19] MEDS: RT-ALBUTEROL/IPRATROPIUM 3 ML (DUONEB) VIAL INH SCH ×2 (06:57→19:27)
--- NOTE | 2021-09-19 07:05 | Progress Note - Surgery ---
ABEOMARI 09/19/21 0705: Subjective Date Seen by a Provider: Sep 19, 2021 Time Seen by a Provider: 06:40 Subjective/Events-last exam Patient was lying in bed, seemed mostly comfortable, and also was more alert and responsive to questions than yesterday. Still has severe back pain, but is r esponsive to physical exam and questions. She was still having back pain that has not worsened or gotten better since yesterday. Pt reports she has been NPO since last night Nurse reports pt has not had Lovanox since 2 days ago Review of Systems General: No Chills, No Night Sweats HEENT: No Head Aches Pulmonary: No Cough, No Pleuritic Chest Pain Cardiovascular: No: Chest Pain, Palpitations, Edema Gastrointestinal: No: Nausea, Vomiting, Abdominal Pain Musculoskeletal: No: back pain (patient said severe low back pain) Neurological: No: Weakness Objective Exam Vital Signs Date Time Temp Pulse Resp B/P (MAP) Pulse Ox O2 Delivery O2 Flow Rate FiO2 09/19/21 06:57 96 Room Air 09/19/21 04:00 35.8 56 18 176/74 97 Room Air 09/19/21 01:00 60 09/19/21 00:00 36.6 64 16 173/79 97 Room Air 09/18/21 20:02 35.8 72 16 181/85 96 Room Air 09/18/21 20:00 Room Air 09/18/21 19:00 72 09/18/21 16:04 37.1 82 16 160/77 96 Room Air 09/18/21 15:26 36.8 82 97 21 09/18/21 15:25 Room Air 09/18/21 14:44 82 168/77 09/18/21 12:39 123 09/18/21 11:50 36.8 102 20 192/91 97 Room Air 09/18/21 09:22 Room Air 09/18/21 09:00 Room Air 09/18/21 08:17 36.6 90 18 196/95 96 Room Air I & O 09/19/21 07:00 Intake Total 1760 ml Output Total 1075 ml Balance 685 ml Capillary Refill : Less Than 3 Seconds General Appearance: No Apparent Distress (Pt still winces in pain at moments), Chronically ill HEENT: PERRL/EOMI; No Scleral Icterus (L), No Scleral Icterus (R) Neck: Normal Inspection, Supple Respiratory: Lungs Clear (Pt seems to be taking prescott breaths compared to yesterday and took a deeper breath in when I asked her.), No Accessory Muscle Use, No Respiratory Distress; No Rhonci, No Wheezing Cardiovascular: Regular Rate, Rhythm ((??faint systolic murmur)) Peripheral Pulses: 2+ Dorsalis Pedis (R), 2+ Left Dors-Pedis (L), 2+ Radial Pulses (R), 2+ Radial Pulses (L) Gastrointestinal: normal bowel sounds, non tender, soft, no organomegaly Extremity: No Pedal Edema Neurologic/Psychiatric: Alert, Oriented x3 (a little confused about the details of last night), Normal Mood/Affect, Depressed Affect (falls to sleep easily, took Percoset) Skin: Normal Color, Warm/Dry Results Lab Laboratory Tests 09/18/21 10:23: Glucometer 243H 09/18/21 15:02: Glucometer 214H 09/18/21 20:31: Glucometer 155H 09/19/21 05:21: White Blood Count 8.5, Red Blood Count 3.28L, Hemoglobin 9.0L, Hematocrit 28L, M jaylen Corpuscular Volume 85, Mean Corpuscular Hemoglobin 27, Mean Corpuscular Hemoglobin Concent 32, Red Cell Distribution Width 16.4H, Platelet Count 399, Mean Platelet Volume 8.9L, Immature Granulocyte % (Auto) 2, Neutrophils (%) (Auto) 55, Lymphocytes (%) (Auto) 29, Monocytes (%) (Auto) 7, Eosinophils (%) (Auto) 6, Basophils (%) (Auto) 1, Neutrophils # (Auto) 4.7, Lymphocytes # (Auto) 2.5, Monocytes # (Auto) 0.6, Eosinophils # (Auto) 0.5H, Basophils # (Auto) 0.1, Immature Granulocyte # (Auto) 0.1, Sodium Level 141, Potassium Level 3.2L, C hloride Level 113H, Carbon Dioxide Level 14L, Anion Gap 14, Blood Urea Nitrogen 16, Creatinine 1.04, Estimat Glomerular Filtration Rate 54, BUN/Creatinine Ratio 15, Glucose Level 232H, Calcium Level 8.1L, Corrected Calcium 9.4, Total Bilirubin 0.3, Aspartate Amino Transf (AST/SGOT) 7, Alanine Aminotransferase (ALT/SGPT) 8, Alkaline Phosphatase 87, Total Protein 5.9L, Albumin 2.4L 09/19/21 05:26: Glucometer 209H Microbiology 09/13/21 MRSA Screen - Final, Complete MRSA not isolated 09/13/21 Blood Culture - Preliminary, Resulted No growth Assessment/Plan Assessment/Plan Assessment/Plan Positive Fecal Occult Blood Test- will work up with EGD; Pt had Colonoscopy in 2018 and no polyps seen, only diverticula. Anemia- pt had blood transfusion on 09/17 DM -uncontrolled CAD, PVD Clinical Quality Measures Smoking Cessation Counseling: Counseling-Symptomatic: 3-10 Minutes ORI AYON DO 09/19/21 1332: Subjective Time Seen by a Provider: 13:22 Subjective/Events-last exam Pt seen and examined, no significant changes. Pt is ready for EGD. Review of Systems General: No Chills, No Night Sweats; Fatigue, Malaise Pulmonary: No Cough Cardiovascular: No: Chest Pain, Palpitations Gastrointestinal: Other (pt denies hematochezia or coffee ground emesis); No: Nausea, Vomiting Objective Exam General Appearance: No Apparent Distress (Pt still winces in pain at moments), Chronically ill Respiratory: Lungs Clear (Pt seems to be taking prescott breaths compared to yesterday and took a deeper breath in when I asked her.), No Accessory Muscle Use, No Respiratory Distress; No Rhonci, No Wheezing Cardiovascular: Regular Rate, Rhythm ((??faint systolic murmur)), No Murmur Gastrointestinal: non tender, soft, no organomegaly Assessment/Plan Assessment/Plan Assessment/Plan Positive Fecal Occult Blood Test- will work up with EGD; Pt had Colonoscopy in 2018 and no polyps seen, only diverticula. Anemia- pt had blood transfusion on 09/17 DM -uncontrolled CAD, PVD Supervisory-Addendum Brief Verification & Attestation Participated in pt care: history, MDM, physical Personally performed: exam, history, MDM, supervision of care Care discussed with: Medical Student Procedures: n/a Verification and Attestation of Medical Student E/M Service A medical student performed and documented this service. I then reviewed and verified all information documented by the medical student and made modifications to such information, when appropriate. I personally performed a physical exam, medical decision making and then discussed any differences between the notes and made revisions as necessary to create one note. Ori Ayon , 09/19/21 , 13:31 OMARI FISH Sep 19, 2021 07:05 ORI AYON DO Sep 19, 2021 13:32
[2021-09-19] MEDS: amLODIPine 10 MG (NORVASC) TAB PO SCH (08:37)
[2021-09-19] MEDS: meTOprolol SUCCINATE 100 MG (TOPROL XL) TAB PO SCH (08:37)
[2021-09-19] MEDS: IRON SUCROSE 200 MG/10 ML (VENOFER) VIAL IV SCH (08:37)
[2021-09-19] MEDS: lisINopril 20 MG (PRINIVIL) TABLET PO SCH (08:37)
[2021-09-19] MEDS: rOPINIRole 0.25 MG (REQUIP) TAB PO SCH ×2 (08:42→21:28)
[2021-09-19] MEDS: POTASSIUM CL 10MEQ/50ML IVPB 50 ML IV NR (11:20)
--- NOTE | 2021-09-19 12:26 | Progress Note ---
Subjective Subjective/Events-last exam States that she is feeling better. She is NPO for EGD this afternoon. Denies any pain at this time Review of Systems Pulmonary: No Dyspnea, No Cough Cardiovascular: No: Chest Pain, Palpitations, Edema Gastrointestinal: Nausea, Abdominal Pain; No: Vomiting Genitourinary: No Dysuria, No Frequency Neurological: Weakness, Incoordination Objective Exam Last Set of Vital Signs Vital Signs Date Time Temp Pulse Resp B/P (MAP) Pulse Ox O2 Delivery O2 Flow Rate FiO2 09/19/21 08:00 35.8 67 18 169/71 96 Room Air 09/18/21 15:26 21 09/18/21 02:54 2.00 Capillary Refill : Less Than 3 Seconds I&O Intake and Output 09/19/21 00:00 Intake Total 1810 ml Output Total 475 ml Balance 1335 ml Intake Oral 800 ml IV Total 1010 ml Output Urine Total 475 ml # Voids 6 # Bowel Movements 3 General: Alert, Oriented X3, Cooperative, No Acute Distress Lungs: Clear to Auscultation, Normal Air Movement Heart: Regular Rate, No Murmurs Abdomen: Normal Bowel Sounds, Soft, No Tenderness, No Masses Extremities: No Edema, No Tenderness/Swelling Skin: No Rashes Results/Procedures Lab Laboratory Tests 09/18/21 15:02: Glucometer 214H 09/18/21 20:31: Glucometer 155H 09/19/21 05:21: White Blood Count 8.5, Red Blood Count 3.28L, Hemoglobin 9.0L, Hematocrit 28L, Mean Corpuscular Volume 85, Mean Corpuscular Hemoglobin 27, Mean Corpuscular Hemoglobin Concent 32, Red Cell Distribution Width 16.4H, Platelet Count 399, Mean Platelet Volume 8.9L, Immature Granulocyte % (Auto) 2, Neutrophils (%) (Auto) 55, Lymphocytes (%) (Auto) 29, Monocytes (%) (Auto) 7, Eosinophils (%) (Auto) 6, Basophils (%) (Auto) 1, Neutrophils # (Auto) 4.7, Lymphocytes # (Auto) 2.5, Monocytes # (Auto) 0.6, Eosinophils # (Auto) 0.5H, Basophils # (Auto) 0.1, Immature Granulocyte # (Auto) 0.1, Sodium Level 141, Potassium Level 3.2L, Chloride Level 113H, Carbon Dioxide Level 14L, Anion Gap 14, Blood Urea Nitrogen 16, Creatinine 1.04, Estimat Glomerular Filtration Rate 54, BUN/Creatinine Ratio 15, Glucose Level 232H, Calcium Level 8.1L, Corrected Calcium 9.4, Total Bilirubin 0.3, Aspartate Amino Transf (AST/SGOT) 7, Alanine Aminotransferase (ALT/SGPT) 8, Alkaline Phosphatase 87, Total Protein 5.9L, Albumin 2.4L 09/19/21 05:26: Glucometer 209H 09/19/21 11:26: Glucometer 245H Microbiology 09/13/21 MRSA Screen - Final, Complete MRSA not isolated 09/13/21 Blood Culture - Preliminary, Resulted No growth Radiology Date of Exam:09/13/21 CT ABDOMEN/PELVIS WO Procedure: CT abdomen and pelvis without contrast. technique: Multiple contiguous axial images were obtained through the abdomen and pelvis without the use of intravenous contrast. Auto Exposure Controls were utilized during the CT exam to meet ALARA standards for radiation dose reduction. Indication: Generalized abdominal pain. Comparison: 06/25/2020. Discussion: Groundglass infiltrates within the lung bases, right greater than left, likely pneumonia, recommend clinical correlation for viral pneumonia. Mild cardiomegaly stable. No pleural or pericardial fluid. The gallbladder appears to be surgically absent, stable. The liver, pancreas, stomach, spleen, and adrenal glands are unremarkable. No renal stone or hydronephrosis. The aorta is normal in caliber and contains moderate atherosclerotic plaque. Urinary bladder is decompressed by a Bateman catheter. The uterus appears within normal limits for age. No obstruction, pneumatosis or pneumoperitoneum. No ascites or adenopathy. Mild anasarca noted within the body wall. Postoperative changes within the lumbar spine along with diffuse advanced degenerative disease throughout the visualized thoracic spine is stable. Impression: 1. Infiltrates within the lung bases suggests pneumonia. 2. Mild anasarca. Dictated by: Dictated on workstation # [id number] Dict: 09/13/212222 Trans: 09/14/219 [facility] [id number] Interpreted by: ALBINA HENSLEY MD Electronically signed by: ALBINA HENSLEY MD 09/14/219 Assessment/Plan Assessment/Plan (1) Iron deficiency anemia due to chronic blood loss Status: Acute Assessment & Plan: 09/17: Hgb continues to trend down, Venofer started, General surgery consulted due to occult + stool 09/18: Bakari reviewed colonoscopy from 2019, plan for EGD during admission, continue iron replacement 09/19: EGD today, Continue Venofer (2) Uncontrolled type 1 diabetes mellitus with hyperglycemia Status: Acute Assessment & Plan: 09/15: Switch fluids to NS from D5 due to blood sugars trending up, advance diet as tolerated 1026: switched to SSI A due to low blood sugars over night and poor appetite 09/17: Continue to monitor AC/HS (3) RLL pneumonia Status: Acute Assessment & Plan: 09/15: Continue Cefepime and titrate oxygen as tolerated 09/16: Continue to titrate oxygen as tolerated 09/18: Will continue to titrate oxygen as tolerated, continue IV antibiotics (4) Chronic pain Status: Chronic Assessment & Plan: 09/16: Change pain medication to PRN from scheduled due to drowsiness Qualifiers: Qualified Codes: G89.4 - Chronic pain syndrome (5) HTN (hypertension) Status: Chronic Assessment & Plan: 09/18: Restarted home meds, added lisinopril today, continue to monitor blood pressure Qualifiers: Qualified Codes: I10 - Essential (primary) hypertension (6) Hypoglycemia Status: Resolved (7) Acute kidney injury superimposed on chronic kidney disease Status: Resolved Assessment & Plan: 09/15: Gentle IV/PO hydration 09/16: Cr trending down with PO hydration, continue to monitor (8) DVT prophylaxis Status: Acute Assessment & Plan: - Lovenox Clinical Quality Measures Smoking Cessation Counseling: Counseling-Symptomatic: 3-10 Minutes ALEXX ZIMMER MD Sep 19, 2021 12:26
[2021-09-19] MEDS ORDERED: LACTATED RINGERS 1,000 ML IV ONE ×2 (13:18→13:25)
[2021-09-19] MEDS ORDERED: HURRICAINE EXT TUBE (BENZOCAINE) XX ONE (13:25)
[2021-09-19] MEDS ORDERED: proPOfol 200 MG/20 ML (DIPRIVAN) VIAL IV ONE (13:28)
--- NOTE | 2021-09-19 13:48 | Progress Note-Post Operative ---
Post-Operative Progess Note Surgeon (s)/Make Up Man (s) Surgeon ORI AYON DO Make Up Man: none Pre-Operative Diagnosis Epigastric pain, Dysphagia Post-Operative Diagnosis Antral ulcers Hiatal hernia Gastritis Procedure & Operative Findings Date of Procedure 09/19/21 Procedure Performed/Findings EGD with biopsy PROCEDURE NOTE: After informed consent was obtained, the patient was brought to the endoscopy suite, placed in bed in left lateral decubitus position. She was administered IV sedation by the COLLECTIONS CURATOR who then monitored vitals the entire time, heart rate, blood pressure and pulse ox and the scope was inserted down the mouth through the esophagus into the stomach. On the way down, noted some mild esophagitis, pushed into the stomach and noted some blood; took a picture. Then pushed past the antrum into the duodenum, to the second potion and saw the ampulla of vater; took a picture. Duodenum looked good. Pulled back and did a biopsy of antrum and what looked like antral ulcers. Next retroflexed the scope, saw a small hiatal hernia and took a picture of this. Finally pulled the scope into the GE junction and then did a biopsy of the GE junction. Pushed the scope back into the stomach, suctioned all the air out of the stomach. At this point pulled the scope up the esophagus and out the mouth. The patient tolerated the procedure, and she recovered in endoscopy suite. Anesthesia Type IV sedation by COLLECTIONS CURATOR Estimated Blood Loss Estimated blood loss (mL): scant Specimens/Packing Specimens Removed antral bx GE jxn bx ORI AYON DO Sep 19, 2021 13:48
[2021-09-19 13:50] VITALS: BP 156/77
[2021-09-19 13:55] VITALS: BP 164/83
[2021-09-19 14:00] VITALS: BP 178/86
--- NOTE | 2021-09-19 14:51 | Anesthesia-General Post-Op ---
MAC Patient Condition Mental Status/LOC: Same as Preop Cardiovascular: Satisfactory Nausea/Vomiting: Absent Respiratory: Satisfactory Pain: Controlled Complications: Absent Post Op Complications Complications None Follow Up Care/Instructions Patient Instructions None needed. Anesthesiology Discharge Order Discharge Order Patient is doing well, no complaints, stable vital signs, no apparent adverse anesthesia problems. No complications reported per nursing. NASIR PRASAD CRNA Sep 19, 2021 14:51
[2021-09-19] MEDS: NS IV 1000 ML 1,000 ML IV SCH (17:01)
[2021-09-20 05:22] LABS: BASOPHILS # (AUTO) 0.1 10^3/uL (0.0-0.1); BASOPHILS % (AUTO) 1 % (0-10); EOSINOPHILS # (AUTO) 0.6 10^3/uL (0.0-0.3); EOSINOPHILS % (AUTO) 6 % (0-10); HEMATOCRIT 30 % (35-52); HEMOGLOBIN 9.9 g/dL (11.5-16.0); LYMPHOCYTES # (AUTO) 3.8 10^3/uL (1.0-4.0); LYMPHOCYTES % (AUTO) 38 % (12-44); MEAN CORPUSCULAR HEMOGLOBIN 27 pg (25-34); MEAN CORPUSCULAR HGB CONC 33 g/dL (32-36); MEAN CORPUSCULAR VOLUME 83 fL (80-99); MEAN PLATELET VOLUME 8.9 fL (9.0-12.2); MONOCYTES # (AUTO) 0.7 10^3/uL (0.0-1.0); MONOCYTES % (AUTO) 7 % (0-12); NEUTROPHILS # (AUTO) 4.8 10^3/uL (1.8-7.8); NEUTROPHILS % (AUTO) 48 % (42-75); PLATELET COUNT 444 10^3/uL (130-400); WHITE BLOOD COUNT 10.1 10^3/uL (4.3-11.0)
[2021-09-20 05:32] LABS: ALBUMIN 2.6 GM/DL (3.2-4.5); POTASSIUM 3.5 MMOL/L (3.6-5.0)
[2021-09-20 05:33] LABS: CALCIUM 7.8 MG/DL (8.5-10.1)
[2021-09-20 05:34] LABS: TOTAL PROTEIN 6.3 GM/DL (6.4-8.2)
[2021-09-20 05:36] LABS: BILIRUBIN,TOTAL 0.3 MG/DL (0.1-1.0)
[2021-09-20 05:38] LABS: CREATININE SERUM 1.02 MG/DL (0.60-1.30)
[2021-09-20] MEDS: inSUlin ASPART (NovoLOG) 1 UNIT/0.01 ML (CHARGE PER UNIT) SC SCH ×2 (06:23→12:15)
[2021-09-20] MEDS: meTOprolol SUCCINATE 100 MG (TOPROL XL) TAB PO SCH (09:36)
[2021-09-20] MEDS: amLODIPine 10 MG (NORVASC) TAB PO SCH (09:36)
[2021-09-20] MEDS: lisINopril 20 MG (PRINIVIL) TABLET PO SCH (09:36)
[2021-09-20] MEDS: rOPINIRole 0.25 MG (REQUIP) TAB PO SCH (09:36)
--- NOTE | 2021-09-20 10:59 | Progress Note - Surgery ---
ABEOMARI 09/20/21 1059: Subjective Date Seen by a Provider: Sep 20, 2021 Time Seen by a Provider: 07:35 Subjective/Events-last exam Patient was sitting up in bed eating a full breakfast. Pt alert and responsive. Much better than appearance yesterday. Responding in full sentences and having a conversation. than yesterday. Still complains of severe back pain that is not better or worse from yesterday. Review of Systems General: No Chills, No Night Sweats, No Fatigue HEENT: No Head Aches, No Visual Changes Pulmonary: No Dyspnea; Cough (Pt still has some cough) Cardiovascular: No: Chest Pain, Palpitations Gastrointestinal: No: Nausea, Vomiting, Abdominal Pain Genitourinary: No Dysuria, No Frequency Musculoskeletal: back pain Neurological: No: Weakness Objective Exam Vital Signs Date Time Temp Pulse Resp B/P (MAP) Pulse Ox O2 Delivery O2 Flow Rate FiO2 09/20/21 07:37 37.4 58 16 103/60 99 Room Air 09/20/21 07:00 59 09/20/21 03:39 37.2 74 18 128/76 97 Room Air 09/20/21 01:00 70 09/19/21 23:20 37.7 80 19 116/71 99 Room Air 09/19/21 20:40 36.5 64 19 163/72 96 Room Air 09/19/21 19:59 Room Air 09/19/21 19:00 73 09/19/21 18:46 98 Room Air 09/19/21 17:00 36.6 70 18 146/76 98 Room Air 09/19/21 14:00 62 16 98 Room Air 09/19/21 13:55 59 16 98 OxyMask 4 09/19/21 13:50 58 16 100 OxyMask 8 09/19/21 12:44 66 09/19/21 12:00 36.0 65 18 162/67 95 Room Air I & O 09/20/21 07:00 Intake Total 2581 ml Output Total 900 ml Balance 1681 ml Capillary Refill : Less Than 3 Seconds General Appearance: No Apparent Distress (Pt still having back pain but appears much better from yesterday. She is eating a full breakfast this morning), Chronically ill HEENT: PERRL/EOMI; No Scleral Icterus (L), No Scleral Icterus (R) Neck: Normal Inspection, Supple Respiratory: Lungs Clear (Pt seems to be taking prescott breaths compared to yesterday and took a deeper breath in when I asked her.), No Accessory Muscle Use, No Respiratory Distress; No Rhonci, No Wheezing Cardiovascular: Regular Rate, Rhythm ((??faint systolic murmur)), No Murmur Peripheral Pulses: 2+ Dorsalis Pedis (R), 2+ Left Dors-Pedis (L), 2+ Radial Pulses (R), 2+ Radial Pulses (L) Gastrointestinal: non tender, soft, no organomegaly Extremity: No Pedal Edema Neurologic/Psychiatric: Alert, Oriented x3 (a little confused about the details of last night), Normal Mood/Affect, Depressed Affect (falls to sleep easily, took Percoset) Skin: Normal Color, Warm/Dry Results Lab Laboratory Tests 09/19/21 11:26: Glucometer 245H 09/19/21 16:58: Glucometer 440*H 09/19/21 20:46: Glucometer 269H 09/20/21 05:10: White Blood Count 10.1, Red Blood Count 3.62L, Hemoglobin 9.9L, Hematocrit 30L, Mean Corpuscular Volume 83, Mean Corpuscular Hemoglobin 27, Mean Corpuscular Hemoglobin Concent 33, Red Cell Distribution Width 15.4H, Platelet Count 444H, Mean Platelet Volume 8.9L, Immature Granulocyte % (Auto) 2, Neutrophils (%) (Auto) 48, Lymphocytes (%) (Auto) 38, Monocytes (%) (Auto) 7, Eosinophils (%) (Auto) 6, Basophils (%) (Auto) 1, Neutrophils # (Auto) 4.8, Lymphocytes # (Auto) 3.8, Monocytes # (Auto) 0.7, Eosinophils # (Auto) 0.6H, Basophils # (Auto) 0.1, Immature Granulocyte # (Auto) 0.2H, Sodium Level 134L, Potassium Level 3.5L, Chloride Level 105, Carbon Dioxide Level 19L, Anion Gap 10, Blood Urea Nitrogen 13, Creatinine 1.02, Estimat Glomerular Filtration Rate 55, BUN/Creatinine Ratio 13, Glucose Level 286H, Calcium Level 7.8L, Corrected Calcium 8.9, Total Bilirubin 0.3, Aspartate Amino Transf (AST/SGOT) 10, Alanine Aminotransferase (ALT/SGPT) 7, Alkaline Phosphatase 91, Total Protein 6.3L, Albumin 2.6L Microbiology 09/13/21 MRSA Screen - Final, Complete MRSA not isolated 09/13/21 Blood Culture - Final, Complete No growth Assessment/Plan Assessment/Plan Assessment/Plan Positive Fecal Occult Blood Test- will work up with EGD; Pt had Colonoscopy in 2018 and no polyps seen, only diverticula. EGD completed yesterday (09/19) Anemia- pt had blood transfusion on 09/17 DM -uncontrolled CAD, PVD Clinical Quality Measures Smoking Cessation Counseling: Counseling-Symptomatic: 3-10 Minutes WALLACE AYON DO 09/20/21 1205: Subjective Time Seen by a Provider: 10:16 Subjective/Events-last exam Pt seen and examined, no new complaints. Review of Systems General: No Chills, No Night Sweats Pulmonary: No Dyspnea; Cough (Pt still has some cough) Cardiovascular: No: Chest Pain, Palpitations Gastrointestinal: No: Nausea, Vomiting, Abdominal Pain Objective Exam General Appearance: No Apparent Distress (Pt still having back pain but appears much better from yesterday. She is eating a full breakfast this morning), Chronically ill Respiratory: Lungs Clear (Pt seems to be taking prescott breaths compared to yesterday and took a deeper breath in when I asked her.), No Accessory Muscle Use, No Respiratory Distress Cardiovascular: Regular Rate, Rhythm ((??faint systolic murmur)), No Murmur Gastrointestinal: non tender, soft, no organomegaly Assessment/Plan Assessment/Plan Assessment/Plan Antral Ulcers most likely causing her pain, not bleeding - needs to take PPI daily, ok to go home from surgery standpoint Anemia- pt had blood transfusion on 09/17 DM -uncontrolled CAD, PVD Supervisory-Addendum Brief Verification & Attestation Participated in pt care: history, MDM, physical Personally performed: exam, history, MDM, supervision of care Care discussed with: Medical Student Procedures: n/a Verification and Attestation of Medical Student E/M Service A medical student performed and documented this service. I then reviewed and verified all information documented by the medical student and made modifications to such information, when appropriate. I personally performed a p hysical exam, medical decision making and then discussed any differences between the notes and made revisions as necessary to create one note. Wallace Ayon , 09/20/21 , 12:05 OMARI FISH Sep 20, 2021 10:59 WALLACE AYON DO Sep 20, 2021 12:05
--- NOTE | 2021-09-20 11:56 | Progress Note - Hospitalist ---
Subjective HPI/CC On Admission Date Seen by Provider: Sep 20, 2021 Patient is 61-year-old female well-known to me from multiple admissions who presented to the emergency department due to hypoglycemia and altered mental status. She reported to the emergency department that she had increasing back pain and took 4 of her 20 mg Percocet to help with this. She then took her insulin at her normal evening time but was unsure of how much she took. She became confused and EMS was summoned and found her blood sugar to be 39. They started her on D10 but she remained relatively hypoglycemic with that with a blood sugar of 94 and then dropped to 54 even with continuous dextrose running. She received a half amp of D50 which increased her blood sugar to 158. She was admitted to the ICU due to her history of labile blood sugars and propensity to go into DKA. This morning her blood sugar was only 110 with fluids running. She would like to try eating though. She also complains of back pain. She denied any nausea or vomiting though and believe she will be able to keep her pain medications down. Objective Exam Vital Signs Vital Signs Date Time Temp Pulse Resp B/P (MAP) Pulse Ox O2 Delivery O2 Flow Rate FiO2 09/20/21 11:13 38.1 73 18 143/68 98 Room Air 09/19/21 13:55 4 09/18/21 15:26 21 Capillary Refill : Less Than 3 Seconds Results/Procedures Lab Laboratory Tests 09/20/21 05:10 Patient resulted labs reviewed. Imaging: Reviewed Imaging Report Assessment/Plan Critical Care Critically Ill Patient Clinical Quality Measures Smoking Cessation Counseling: Counseling-Symptomatic: 3-10 Minutes AZEEM MELVIN DO Sep 20, 2021 11:56
[2021-09-20] MEDS ORDERED: SUCR1TAB36 PO (12:02)
[2021-09-20] MEDS ORDERED: LISI20TA26 PO (12:02)
--- NOTE | 2021-09-20 12:03 | Discharge Summary ---
Discharge Summary Hospital Course Was the Problem List Reviewed?: Yes Problems/Dx: (1) Type I diabetes mellitus with ketoacidosis Status: Acute (2) Iron deficiency anemia due to chronic blood loss Status: Acute Hospital Course Date of Admission: Sep 13, 2021 at 22:25 Admission Diagnosis : Family Physician/Provider: Gerardo Greenwood DO Date of Discharge: 09/20/21 Discharge Diagnosis: Brittle diabetes with hyperglycemia, Hemoccult positive st ools, anemia requiring transfusion Hospital Course: Patient had a standard hospital course she was placed on aggressive insulin regimen along with transfusion of 1 unit of blood EGD was performed showing ulcerations patient was placed on Protonix twice daily to maintain at home and Carafate and patient was deemed stable for discharge. Labs and Pending Lab Test: Laboratory Tests 09/19/21 16:58: Glucometer 440*H 09/19/21 20:46: Glucometer 269H 09/20/21 05:10: White Blood Count 10.1, Red Blood Count 3.62L, Hemoglobin 9.9L, Hematocrit 30L, Mean Corpuscular Volume 83, Mean Corpuscular Hemoglobin 27, Mean Corpuscular Hemoglobin Concent 33, Red Cell Distribution Width 15.4H, Platelet Count 444H, Mean Platelet Volume 8.9L, Immature Granulocyte % (Auto) 2, Neutrophils (%) (Auto) 48, Lymphocytes (%) (Auto) 38, Monocytes (%) (Auto) 7, Eosinophils (%) (Auto) 6, Basophils (%) (Auto) 1, Neutrophils # (Auto) 4.8, Lymphocytes # (Auto) 3.8, Monocytes # (Auto) 0.7, Eosinophils # (Auto) 0.6H, Basophils # (Auto) 0.1, Immature Granulocyte # (Auto) 0.2H, Sodium Level 134L, Potassium Level 3.5L, Chloride Level 105, Carbon Dioxide Level 19L, Anion Gap 10, Blood Urea Nitrogen 13, Creatinine 1.02, Estimat Glomerular Filtration Rate 55, BUN/Creatinine Ratio 13, Glucose Level 286H, Calcium Level 7.8L, Corrected Calcium 8.9, Total B ilirubin 0.3, Aspartate Amino Transf (AST/SGOT) 10, Alanine Aminotransferase (ALT/SGPT) 7, Alkaline Phosphatase 91, Total Protein 6.3L, Albumin 2.6L 09/20/21 11:12: Glucometer 292H Microbiology 09/13/21 MRSA Screen - Final, Complete MRSA not isolated 09/13/21 Blood Culture - Final, Complete No growth Home Meds Active Reported Levemir Flextouch (Insulin Detemir) 100 Unit/1 Ml Insuln.pen 15 Unit SQ HS Promethazine Tablet (Promethazine HCl) 25 Mg Tablet 25 Mg PO Q12H PRN Ropinirole HCl 0.25 Mg Tablet 0.25 Mg PO HS Oxycodone HCl 20 Mg Tablet 20 Mg PO Q4 -6H MDD 5 TABS Amlodipine Besylate 10 Mg Tablet 10 Mg PO DAILY Metoprolol Succinate 100 Mg Tab.er.24h 100 Mg PO DAILY Pantoprazole Sodium 40 Mg Tablet.dr 40 Mg PO BIDAC Atorvastatin Calcium 20 Mg Tablet 20 Mg PO HS Gabapentin 800 Mg Tablet 800 Mg PO DAILY Gabapentin 800 Mg Tablet 1,600 Mg PO HS TAKES 2 (800MG) TABLETS Assessment/Pt Instructions [facility] in 1 week Discharge Planning: <30 minutes discharge planning Discharge Instructions Discharge Diet: ADA Diet Discharge Physical Examination Vital Signs Vital Signs Date Time Temp Pulse Resp B/P (MAP) Pulse Ox O2 Delivery O2 Flow Rate FiO2 09/20/21 11:13 38.1 73 18 143/68 98 Room Air 09/19/21 13:55 4 09/18/21 15:26 21 General Appearance: No Apparent Distress, WD/WN, Chronically ill Allergies: Coded Allergies: ketorolac (Verified Allergy, Severe, ANAPHYLAXIS, PT TAKES ASA AT HOME, 03/06/19) scopolamine (Verified Allergy, Mild, Rash, 03/21/19) exenatide (Verified Allergy, Unknown, NAUSEA, 03/06/19) NON STOP VOMITING latex (Verified Allergy, Unknown, RASH, 03/06/19) metoclopramide (Verified Allergy, Unknown, RESTLESS LEGS, 03/06/19) erythromycin base (Verified Adverse Reaction, Unknown, 03/21/19) Discharge Summary Date of Admission Sep 13, 2021 at 22:25 Date of Discharge Discharge Date: Sep 20, 2021 Admission Diagnosis Refractory hypoglycemia Clinical Quality Measures Smoking Cessation Counseling: Counseling-Symptomatic: 3-10 Minutes AZEEM MELVIN DO Sep 20, 2021 12:03
[2021-09-20 14:49] VITALS: BP 143/68
== END 2021-09-20 14:51 | disposition home or self-care (01) | DRG 637 ==
LOC: EDUNIT# 21:19 → ER 21:21 → ICU 22:25 → 4TH 09-15 15:11
PROVIDERS: ADMIT Family Medicine; ATTEND Family Medicine
PROC: 0DB48ZX Excision of Esophagogastric Junction, Via Natural or Artificial Opening Endoscopic, Diagnostic (ICD-10-PCS; 2021-09-19)
PROC: 0DB78ZX Excision of Stomach, Pylorus, Via Natural or Artificial Opening Endoscopic, Diagnostic (ICD-10-PCS; principal; 2021-09-19 13:27)
DX: E10.649 Type 1 diabetes mellitus with hypoglycemia without coma (principal); J18.9 Pneumonia, unspecified organism; K25.4 Chronic or unspecified gastric ulcer with hemorrhage; K29.71 Gastritis, unspecified, with bleeding; E10.65 Type 1 diabetes mellitus with hyperglycemia; E10.40 Type 1 diabetes mellitus with diabetic neuropathy, unspecified; E10.43 Type 1 diabetes mellitus with diabetic autonomic (poly)neuropathy; K31.84 Gastroparesis; Z79.4 Long term (current) use of insulin; N17.9 Acute kidney failure, unspecified; I25.10 Atherosclerotic heart disease of native coronary artery without angina pectoris; D50.0 Iron deficiency anemia secondary to blood loss (chronic); K57.90 Diverticulosis of intestine, part unspecified, without perforation or abscess without bleeding; I73.9 Peripheral vascular disease, unspecified; I12.9 Hypertensive chronic kidney disease with stage 1 through stage 4 chronic kidney disease, or unspecified chronic kidney disease; E10.22 Type 1 diabetes mellitus with diabetic chronic kidney disease; N18.9 Chronic kidney disease, unspecified; E78.00 Pure hypercholesterolemia, unspecified; E78.5 Hyperlipidemia, unspecified; Z20.822 Contact with and (suspected) exposure to COVID-19; K21.9 Gastro-esophageal reflux disease without esophagitis; M79.7 Fibromyalgia; H54.7 Unspecified visual loss; F41.9 Anxiety disorder, unspecified; F17.210 Nicotine dependence, cigarettes, uncomplicated; G40.909 Epilepsy, unspecified, not intractable, without status epilepticus; H35.30 Unspecified macular degeneration; Z95.5 Presence of coronary angioplasty implant and graft; Z86.718 Personal history of other venous thrombosis and embolism; Z91.19 Patient's noncompliance with other medical treatment and regimen; Z79.82 Long term (current) use of aspirin; Z88.1 Allergy status to other antibiotic agents; Z91.040 Latex allergy status; Z88.8 Allergy status to other drugs, medicaments and biological substances; Z83.3 Family history of diabetes mellitus; Z82.49 Family history of ischemic heart disease and other diseases of the circulatory system
CPT/HCPCS: 36415; 51702; 71045; 74176; 80048; 80053; 80306; 80320; 80329; 81000; 82274; 82728; 82947; 83540; 83550; 83605; 83690; 83735; 84100; 84145; 85007; 85014; 85018; 85025; 85027; 85610; 85730; 86850; 86900; 86901; 86920; 87040; 87081; 87636; 94640; 94664; 94760; 96374; 96375

== ENCOUNTER 2021-10-10 08:33 | Outpatient (CLI) | payer MEDICARE ==
[~2021-10-10 08:33] MED LIST changes: -SUCR1TAB PO
[2021-10-10 08:55] VITALS: BP 139/75
== END 2021-10-10 10:20 | disposition home or self-care (01) ==
LOC: SDC 08:33
PROVIDERS: ATTEND Internal Medicine Endocrinology, Diabetes & Metabolism
DX: E10.9 Type 1 diabetes mellitus without complications (principal)
CPT/HCPCS: 36591

== ENCOUNTER 2021-10-10 23:05 | Inpatient (IN) | payer MEDICARE ==
[~2021-10-10] VITALS: Ht 152.4 cm; Wt 53.2 kg
[2021-10-10] MEDS ORDERED: NS IV 1000 ML 1,000 ML IV SCH (23:30)
--- NOTE | 2021-10-11 00:07 | Diagnostic Imaging Report ---
PROCEDURE: CT thoracic and lumbar spine without contrast. TECHNIQUE: Multiple contiguous axial images were obtained through the thoracic and lumbar spine without the use of intravenous contrast. Sagittal and coronal reformations were then performed. All CT scans use one or more of the following dose optimizing techniques: automated exposure control, MA and/or KvP adjustment based on a patient size and exam type, or iterative reconstruction. INDICATION: Fall on 09/21/2021. Persistent mid and low back pain. History of back surgery. COMPARISON: 06/25/2020 FINDINGS: Thoracic spine: There is mild right convex curvature of the midthoracic spine. There is no significant spondylolisthesis. Anterior fusion hardware is noted in the lower cervical spine. Vertebral body heights are preserved. No acute fracture is seen. There are advanced degenerative changes, more pronounced in the mid and lower thoracic spine. No acute fracture is seen. There is motion artifact on multiple images. Surrounding soft tissues demonstrate no acute abnormality. Lumbar spine: There is posterior fusion of the lumbar spine from L3 down to S1 with bilateral pedicle screws and posterior fusion rods. No loosening or hardware fracture is seen. There is grade 1 anterolisthesis at L3-L4. Interbody disc spacers are seen at the interval levels of the fusion. There appears to be bony bridging of the posterior elements as well. There are marked degenerative changes at T12-L1 and at L1-L2. There is marked bony destruction and erosion at the anterior inferior aspect of the L2 vertebral body with pathologic fracture of the inferior endplate. This is new since 06/25/2020. There is surrounding soft tissue thickening at this level, particularly into the left psoas. No significant spinal canal stenosis is seen by CT. Soft tissues about the lumbar spine otherwise demonstrate no acute abnormality. IMPRESSION: 1. Lytic lesion of the L2 vertebral body with associated pathologic fracture of the inferior endplate. This could be due to infection or neoplasm. Recommend follow-up MRI with and without contrast. Spinal canal stenosis is not appreciated by CT. 2. Posterior fusion of L3-S1. No hardware complication is seen. 3. Marked degenerative changes in the thoracic spine. Dictated by: Dictated on workstation # [id number]
[2021-10-11 00:42] LABS: BILIRUBIN,URINE NEGATIVE (NEGATIVE); CLARITY,URINE CLEAR; COLOR,URINE YELLOW; GLUCOSE, URINE (UA) 3+ (NEGATIVE); KETONES,URINE NEGATIVE (NEGATIVE); LEUKOCYTE ESTERASE ,URINE NEGATIVE (NEGATIVE); NITRITE,URINE NEGATIVE (NEGATIVE); PROTEIN,URINE 2+ (NEGATIVE)
[2021-10-11 00:52] LABS: BACTERIA,URINE TRACE /HPF; SQUAMOUS EPITHELIAL CELL,UR 0-2 /HPF; WBC,URINE 0-2 /HPF
[2021-10-11 00:55] LABS: AMPHETAMINE SCREEN, URINE NEGATIVE (NEGATIVE); BARBITURATE SCREEN URINE NEGATIVE (NEGATIVE); BENZODIAZEPINES SCREEN URINE NEGATIVE (NEGATIVE); CANNABINOID SCREEN, URINE NEGATIVE (NEGATIVE); COCAINE SCREEN URINE NEGATIVE (NEGATIVE); METHADONE STAT NEGATIVE (NEGATIVE); METHAMPHETAMINE SCREEN URINE S NEGATIVE (NEGATIVE); OPIATE SCREEN URINE POSITIVE (NEGATIVE); OXYCODONE STAT NEGATIVE (NEGATIVE); PROPOXYPHENE STAT NEGATIVE (NEGATIVE); TRICYCLIC ANTIDEPRESSANTS SCRE NEGATIVE (NEGATIVE)
[2021-10-11 01:10] LABS: BASOPHILS # (AUTO) 0.1 10^3/uL (0.0-0.1); BASOPHILS % (AUTO) 1 % (0-10); EOSINOPHILS # (AUTO) 0.2 10^3/uL (0.0-0.3); EOSINOPHILS % (AUTO) 2 % (0-10); HEMATOCRIT 31 % (35-52); HEMOGLOBIN 9.8 g/dL (11.5-16.0); LYMPHOCYTES # (AUTO) 1.5 10^3/uL (1.0-4.0); LYMPHOCYTES % (AUTO) 17 % (12-44); MEAN CORPUSCULAR HEMOGLOBIN 28 pg (25-34); MEAN CORPUSCULAR HGB CONC 32 g/dL (32-36); MEAN CORPUSCULAR VOLUME 89 fL (80-99); MEAN PLATELET VOLUME 9.7 fL (9.0-12.2); MONOCYTES # (AUTO) 0.7 10^3/uL (0.0-1.0); MONOCYTES % (AUTO) 8 % (0-12); NEUTROPHILS # (AUTO) 6.4 10^3/uL (1.8-7.8); NEUTROPHILS % (AUTO) 72 % (42-75); PLATELET COUNT 310 10^3/uL (130-400); WHITE BLOOD COUNT 8.9 10^3/uL (4.3-11.0)
[2021-10-11 01:15] LABS: ALBUMIN 2.5 GM/DL (3.2-4.5); CHLORIDE 107 MMOL/L (98-107); POTASSIUM 4.1 MMOL/L (3.6-5.0); SODIUM 135 MMOL/L (135-145)
[2021-10-11 01:16] LABS: AMYLASE 41 U/L (25-125); CALCIUM 7.9 MG/DL (8.5-10.1)
[2021-10-11 01:17] LABS: TOTAL PROTEIN 6.7 GM/DL (6.4-8.2)
[2021-10-11 01:18] LABS: CARBON DIOXIDE 15 MMOL/L (21-32)
[2021-10-11 01:19] LABS: BILIRUBIN,TOTAL 0.2 MG/DL (0.1-1.0)
[2021-10-11 01:20] LABS: ALKALINE PHOSPHATASE 103 U/L (40-136)
[2021-10-11 01:21] LABS: CREATININE SERUM 1.45 MG/DL (0.60-1.30); GFR ESTIMATED 37
[2021-10-11 01:22] LABS: BUN/CREATININE RATIO 12
[2021-10-11 01:24] LABS: ALANINE AMINOTRANSFERASE 9 U/L (0-55); MAGNESIUM 1.5 MG/DL (1.6-2.4)
[2021-10-11 01:25] LABS: LIPASE 22 U/L (8-78)
[2021-10-11 01:34] LABS: GLUCOSE 589 MG/DL (70-105)
[2021-10-11] MEDS ORDERED: inSUlin (REGULAR) HUMAN 1 UNIT/0.01 ML (CHARGE PER UNIT) SC ONE (01:45)
[2021-10-11] MEDS ORDERED: NS IV 1000 ML 1,000 ML IV SCH (01:45)
[2021-10-11] MEDS ORDERED: fentaNYL INJ 100 MCG/2 ML AMP IVP ONE (02:15)
[2021-10-11] MEDS ORDERED: inSUlin (REGULAR) HUMAN 1 UNIT/0.01 ML (CHARGE PER UNIT) IV ONE (02:30)
[2021-10-11] MEDS ORDERED: ORPHENADRINE 60 MG/2 ML (NORFLEX) AMP (ED ONLY) IM SCH (03:45)
[2021-10-11] MEDS ORDERED: D5 1/2 NS 1000 ML IV SOLUTION 1,000 ML IV SCH (03:45)
[2021-10-11] MEDS ORDERED: ONDANSETRON 4 MG/2 ML (SDV) Z0FRAN IVP PRN ×2 (03:45→10:30)
[2021-10-11] MEDS ORDERED: HYDROcodone/APAP 5 MG/325 MG (LORTAB) TAB PO PRN (03:45)
[2021-10-11] MEDS ORDERED: morphine INJ 4 MG/ML 1 ML (VIAL/SYRINGE) IVP PRN (03:45)
--- NOTE | 2021-10-11 03:57 | Tele-ICU Progress Note ---
Progress Note 61F with labile DM, frequent admits for DKA and hypoglycemia, HTN, HLD, CKD, IBS, sz d/o, stent, laminectomy initially presented with back pain. Found to have L2 lytic lesion with pathological fracture. Currently c/o severe pain, fentanyl provided no relief in ER. Found to be hyperglycemic at 471, bicarb 15, gap 13, b-hydroxy 0.06. ER note not yet available, but per my discussion with ER MD this patient is very well known to primary. Requested insulin gtt at a custom rate. DKA orders were entered. [employer] will call ER MD to clarify insulin orders. Unclear source of lytic lesion/path fracture. Will send tumor markers, especially GI considering recent heme postive stool. Breast markers given age. MM screen. Focused Exam Lactate Level 10/11/21 00:55: Lactic Acid Level 1.48 Height, Weight, BMI Height: 5'1.00" Weight: 122lbs. 1.0oz. [id number]; 101.00 BMI Method:Estimated Lactic Acid Level Laboratory Tests Test 10/11/21 00:55 Lactic Acid Level 1.48 MMOL/L (0.50-2.00) ERIKA RAHMAN MD Oct 11, 2021 03:57
[2021-10-11 04:07] LABS: HEMATOCRIT 32 % (35-52); HEMOGLOBIN 10.1 g/dL (11.5-16.0); MEAN CORPUSCULAR HEMOGLOBIN 28 pg (25-34); MEAN CORPUSCULAR HGB CONC 31 g/dL (32-36); MEAN CORPUSCULAR VOLUME 90 fL (80-99); MEAN PLATELET VOLUME 9.7 fL (9.0-12.2); PLATELET COUNT 316 10^3/uL (130-400); WHITE BLOOD COUNT 9.4 10^3/uL (4.3-11.0)
[2021-10-11] MEDS: morphine INJ 4 MG/ML 1 ML (VIAL/SYRINGE) IVP PRN ×2 (04:15→06:27)
[2021-10-11 04:32] LABS: POTASSIUM 3.9 MMOL/L (3.6-5.0)
[2021-10-11 04:33] LABS: CALCIUM 8.2 MG/DL (8.5-10.1)
[2021-10-11 04:38] LABS: CREATININE SERUM 1.32 MG/DL (0.60-1.30)
[2021-10-11 05:10] LABS: ALBUMIN 2.6 GM/DL (3.2-4.5)
[2021-10-11 05:13] LABS: TOTAL PROTEIN 6.8 GM/DL (6.4-8.2)
[2021-10-11 05:14] LABS: BILIRUBIN,TOTAL 0.2 MG/DL (0.1-1.0)
[2021-10-11 05:16] LABS: PHOSPHORUS 2.7 MG/DL (2.3-4.7)
[2021-10-11 05:18] LABS: MAGNESIUM 1.4 MG/DL (1.6-2.4)
[2021-10-11] MEDS: POTASSIUM CL 10MEQ/50ML IVPB 50 ML IV SCH ×6 (05:28→12:09)
[2021-10-11] MEDS: fentaNYL INJ 100 MCG/2 ML AMP IVP PRN ×3 (05:31→12:09)
[2021-10-11 06:45] LABS: CALCIUM 7.9 MG/DL (8.5-10.1)
[2021-10-11 06:50] LABS: CREATININE SERUM 1.04 MG/DL (0.60-1.30)
[2021-10-11] MEDS: 1/2 NS IV SOLUTION 1,000 ML IV SCH ×2 (06:54→07:47)
[2021-10-11] MEDS ORDERED: DEXTROSE 50% 50 ML (IMS) SYR ONE (07:01)
[2021-10-11] MEDS ORDERED: DEXTROSE 50% 50 ML (IMS) SYR IV ONE (07:15)
[2021-10-11] MEDS ORDERED: CATHETER FLUSH 10 ML SYR IV PRN (07:30)
[2021-10-11] MEDS ORDERED: POTASSIUM CL 10MEQ/50ML IVPB 200 ML IV ONE (07:39)
[2021-10-11] MEDS ORDERED: MAGNESIUM 1 GM/100 ML IVPB 200 ML IV ONE (07:44)
[2021-10-11] MEDS: MAGNESIUM 1 GM/100 ML IVPB 100 ML IV SCH ×2 (07:48→08:54)
--- NOTE | 2021-10-11 09:36 | Progress Note - Surgery ---
Subjective Date Seen by a Provider: Oct 11, 2021 Time Seen by a Provider: 09:04 Subjective/Events-last exam Pt is being consulted by surgery Says she has been having severe back pain for the past several days Unclear source of lytic lesion/path fracture. Will send tumor markers, especially GI considering recent heme postive stool Review of Systems General: No Chills, No Night Sweats HEENT: No Head Aches, No Visual Changes, No Eye Pain Pulmonary: No Dyspnea, No Cough Cardiovascular: No: Chest Pain, Palpitations Gastrointestinal: Nausea, Other (Had a bowel movement last night which patient says apepared normal.); No: Vomiting, Abdominal Pain, Diarrhea, Melena Genitourinary: No Dysuria, No Frequency Musculoskeletal: back pain (08/31 pain) Neurological: No: Weakness, Numbness Focused Exam Lactate Level 10/11/21 00:55: Lactic Acid Level 1.48 Objective Exam Vital Signs Date Time Temp Pulse Resp B/P (MAP) Pulse Ox O2 Delivery O2 Flow Rate FiO2 10/11/21 09:00 70 12 139/71 95 Room Air 10/11/21 08:00 72 13 148/73 93 Room Air 10/11/21 07:00 77 10/11/21 07:00 81 14 154/76 98 Room Air 10/11/21 06:32 36.4 10/11/21 06:00 79 12 165/89 97 Room Air 10/11/21 05:42 Room Air 10/11/21 05:00 7 11 190/92 98 Room Air 10/11/21 04:30 79 14 98 Room Air 10/11/21 04:00 79 17 164/68 98 Room Air 10/11/21 03:45 78 17 190/82 98 Room Air 10/11/21 03:30 81 15 187/90 97 Room Air 10/11/21 03:18 84 10/11/21 03:16 36.9 81 12 197/96 97 Room Air 10/11/21 02:59 36.9 78 18 180/91 97 Room Air 10/10/21 23:13 37.0 78 18 183/78 (113) 98 Room Air I & O 10/11/21 07:00 Intake Total 1050 ml Output Total 600 ml Balance 450 ml Capillary Refill : Less Than 3 Seconds General Appearance: Chronically ill HEENT: PERRL/EOMI Neck: Full Range of Motion, Normal Inspection, Non Tender, Supple Respiratory: No Accessory Muscle Use, No Respiratory Distress, Rhonci Cardiovascular: Regular Rate, Rhythm, No Edema, No Murmur Peripheral Pulses: 2+ Radial Pulses (R), 2+ Radial Pulses (L) Gastrointestinal: normal bowel sounds, non tender, soft, no organomegaly, no pulsatile mass Neurologic/Psychiatric: Alert, Oriented x3, Normal Mood/Affect Skin: Normal Color, Warm/Dry Lymphatic: No Adenopathy (Cervical and Supraclavicular) Results Lab Laboratory Tests 10/10/21 23:22: Glucometer 540*H 10/11/21 00:30: Urine Color YELLOW, Urine Clarity CLEAR, Urine pH 7.0, Urine Specific [place] 1.015L, Urine Protein 2+H, Urine Glucose (UA) 3+H, Urine Ketones NEGATIVE, Urine Nitrite NEGATIVE, Urine Bilirubin NEGATIVE, Urine Urobilinogen 0.2, Urine Le ukocyte Esterase NEGATIVE, Urine RBC (Auto) 2+H, Urine RBC 2-5H, Urine WBC 0-2, Urine Squamous Epithelial Cells 0-2, Urine Crystals NONE, Urine Bacteria TRACE, Urine Casts NONE, Urine Mucus NEGATIVE, Urine Culture Indicated NO, Urine Opiates Screen POSITIVEH, Urine Oxycodone Screen NEGATIVE, Urine Methadone Screen NEGATIVE, Urine Propoxyphene Screen NEGATIVE, Urine Barbiturates Screen NEGATIVE, Ur Tricyclic Antidepressants Screen NEGATIVE, Urine Phencyclidine Screen NEGATIVE, Urine Amphetamines Screen NEGATIVE, Urine Methamphetamines Screen NEGATIVE, Urine Benzodiazepines Screen NEGATIVE, Urine Cocaine Screen NEGATIVE, Urine Cannabinoids Screen NEGATIVE 10/11/21 00:55: White Blood Count 8.9, Red Blood Count 3.48L, Hemoglobin 9.8L, Hematocrit 31L, Mean Corpuscular Volume 89, Mean Corpuscular Hemoglobin 28, Mean Corpuscular Hemoglobin Concent 32, Red Cell Distribution Width 17.0H, Platelet Count 310, Mean Platelet Volume 9.7, Immature Granulocyte % (Auto) 1, Neutrophils (%) (Auto) 72, Lymphocytes (%) (Auto) 17, Monocytes (%) (Auto) 8, Eosinophils (%) (Auto) 2, Basophils (%) (Auto) 1, Neutrophils # (Auto) 6.4, Lymphocytes # (Auto) 1.5, Monocytes # (Auto) 0.7, Eosinophils # (Auto) 0.2, Basophils # (Auto) 0.1, Immature Granulocyte # (Auto) 0.1, Sodium Level 135, Potassium Level 4.1, Chloride Level 107, Carbon Dioxide Level 15L, Anion Gap 13, Blood Urea Nitrogen 17, Creatinine 1.45H, Estimat Glomerular Filtration Rate 37, BUN/Creatinine Ratio 12, Glucose Level 589*H, Lactic Acid Level 1.48, Calcium Level 7.9L, Corrected Calcium 9.1, Magnesium Level 1.5L, Total Bilirubin 0.2, Aspartate Amino Transf (AST/SGOT) 16, Alanine Aminotransferase (ALT/SGPT) 9, Alkaline Phosphatase 103, Myoglobin 44.4, Total Protein 6.7, Albumin 2.5L, Amylase Level 41, Lipase 22, Beta-Hydroxybutyrate (Chem panel) 0.06, Serum Alcohol < 10 10/11/21 02:14: Glucometer 471*H 10/11/21 03:25: Glucometer 394H 10/11/21 03:56: White Blood Count 9.4, Red Blood Count 3.57L, Hemoglobin 10.1L, Hematocrit 32L, Mean Corpuscular Volume 90, Mean Corpuscular Hemoglobin 28, Mean Corpuscular Hemoglobin Concent 31L, Red Cell Distribution Width 16.9H, Platelet Count 316, Mean Platelet Volume 9.7, Sodium Level 138, Potassium Level 3.9, Chloride Level 109H, Carbon Dioxide Level 16L, Anion Gap 13, Blood Urea Nitrogen 17, Creatinine 1.32H, Estimat Glomerular Filtration Rate 41, BUN/Creatinine Ratio 13, Glucose Level 401*H, Calcium Level 8.2L, Corrected Calcium 9.3, Phosphorus Level 2.7, Magnesium Level 1.4L, Total Bilirubin 0.2, Aspartate Amino Transf (AST/SGOT) 12, Alanine Aminotransferase (ALT/SGPT) 8, Alkaline Phosphatase 100, Total Protein 6.8, Albumin 2.6L, Beta-Hydroxybutyrate (Chem panel) 0.04 10/11/21 06:18: Glucometer 94 10/11/21 06:20: Sodium Level 142, Potassium Level 3.0L, Chloride Level 114H, Carbon Dioxide Level 17L, Anion Gap 11, Blood Urea Nitrogen 16, Creatinine 1.04, Estimat Glomerular Filtration Rate 54, BUN/Creatinine Ratio 15, Glucose Level 97, Calcium Level 7.9L 11/20/21 06:58: Glucometer 18*L 10/11/21 07:01: Glucometer 21*L 10/11/21 07:58: Glucometer 86 10/11/21 09:26: Glucometer 137H Assessment/Plan Assessment/Plan Admission Diagonsis CT: Lytic lesion of spine MRI Clinical Quality Measures Smoking Cessation Counseling: Counseling-Symptomatic: 3-10 Minutes OMARI FISH Oct 11, 2021 09:36
[2021-10-11] MEDS ORDERED: ACETAMINOPHEN 325 MG TABLET PO PRN (10:30)
[2021-10-11] MEDS ORDERED: diphenhydrAMINE 25 MG TAB (BENADRYL) PO PRN (10:30)
[2021-10-11] MEDS ORDERED: ONDANSETRON 4 MG (ZOFRAN) ORAL DISSOLVE TAB PO PRN (10:30)
[2021-10-11] MEDS ORDERED: ALPRAZolam 0.25 MG (XANAX) TAB PO PRN (10:30)
[2021-10-11] MEDS ORDERED: ACETAMINOPHEN 500 MG TAB (TYLENOL) PO PRN (10:30)
[2021-10-11] MEDS ORDERED: MELATONIN 3 MG TABLET PO PRN (10:30)
[2021-10-11] MEDS ORDERED: LOPERAMIDE 2 MG (IMODIUM) TABLET PO PRN (10:30)
[2021-10-11] MEDS ORDERED: CALCIUM CARBONATE 500 MG (TUMS) TAB.CHEW PO PRN (10:30)
[2021-10-11] MEDS ORDERED: DOCUSATE SODIUM 100 MG (COLACE) CAP PO PRN (10:30)
--- NOTE | 2021-10-11 10:32 | History & Physical-Hospitalist ---
History of Present Illness HPI/Chief Complaint Chief complaint: Hyperglycemia with back pain History of present illness: This is a 61-year-old white female who has a history of DKA brittle diabetes who presents to the ER with complaints of abdominal pain back pain and weakness. She fell sustaining compression fractures on [place] and is struggling with the pain ever since. She was found to have severe hyperglycemia of 600 but no DKA meeting criteria for insulin drip for non-DKA status. We will restart her home medication and pain medication. Source: patient Exam Limitations: no limitations Date Seen 10/11/21 Time Seen by a Provider: 10:00 Attending Physician Jazmine Berry DO [facility] Referring Physician Date of Admission Oct 11, 2021 at 02:00 Home Medications & Allergies Home Medications Reviewed patient Home Medication Reconciliation performed by pharmacy medication reconciliations pest control service technician and/or nursing. Patients Allergies have been reviewed. Allergies Allergies Coded Allergies ketorolac (Verified Allergy, Severe, ANAPHYLAXIS, PT TAKES ASA AT HOME, 03/06/19) scopolamine (Verified Allergy, Mild, Rash, 03/21/19) exenatide (Verified Allergy, Unknown, NAUSEA, 03/06/19) NON STOP VOMITING latex (Verified Allergy, Unknown, RASH, 03/06/19) metoclopramide (Verified Allergy, Unknown, RESTLESS LEGS, 03/06/19) erythromycin base (Verified Adverse Reaction, Unknown, 03/21/19) Past Kdiptoa-Sutvwl-Ziehrv Hx Patient Social History Marrital Status: single Employed/Student: unemployed Tobacco Use?: Yes Tobacco type used: Cigarettes Smoking Status: Current Everyday Smoker Smokeless Tobacco Frequency: Current Everyday User Use of E-Cig and/or Vaping dev: No Substance use?: No Alcohol Use?: No Pt feels they are or have been: No Immunizations Up To Date Date of Influenza Vaccine: Aug 11, 2021 First/Initial COVID19 Vaccinat: January 2021 Second COVID19 Vaccination Sharif: February 2021 Tetanus Booster (TDap): Unknown Hepatitis A: No Hepatitis B: No PED Vaccines UTD: No Date of Pneumonia Vaccine: Nov 06, 2019 Seasonal Allergies Seasonal Allergies: Yes Current Status status: No status: No Advance Directives: No Communicates: Verbally Primary Language: Singaporean Preferred Spoken Language: Singaporean Is interpretation needed?: No Past Medical History Surgeries: Cardiac, Coronary Stent Chronic Bronchitis Currently Using CPAP: No Currently Using BIPAP: No Coronary Artery Disease, Peripheral Vascular Neuropathy 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 Diabetes Mellitus Type 1 with poor control 2. Hypertension 3.Hyperlipidemia 4.Chronic Kidney Disease 5. Irritable Bowel Disorder 6. Fibromyalgia 7.Psoriasis 8.chronic neck and back pain- on chronic narcotics from pain management 9. hx of blood clots in the upper extremities 10. Anxiety 11. Tobaccoism 12. 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 GERD 14. Diverticulosis 15. Seizure Disorder PSH: 1.Renal stent 2.cholecystectomy 3.Laminectomy 5.ear tubes as a child Family Medical History Cancer of mouth 19 FATHER ( of esophogeal cancer.) Cardiovascular disease 19 MOTHER G8 BROTHER Completed stroke 19 FATHER G8 BROTHER Diabetes mellitus G8 BROTHER FH: lung cancer 19 MOTHER Hypertension 19 FATHER Kidney disease 19 FATHER Myocardial infarction 19 MOTHER G8 BROTHER Respiratory disorder No Family History of: AIDS Heart Disease, Cancer, Renal Disease, Stroke SOCIAL HISTORY: -ETOH--RARELY USES -DRUGS--Rx NARCOTIC ABUSE -SMOKES 1 PPD PSH: -LINQ DEVICE PLACED 11/09/19 FOR REPORTED PALPITATIONS X 6 MONTHS, SINCE PERCOCET WAS DC'D -MULTIPLE CARDIAC CATHS--STENT X 1 TO LAD 07/13/15. LAST CATH 01/18/19--NO INTERVENTION -LUMBAR SPINE FUSION X 3--12/2002, 04/2007, AND 05/2007 -LUMBAR DISCECTOMY 10/2000--? LAMINECTOMY? -CERVICAL SPINE FUSION 11/2006 -CHOLECYSTECTOMY 1983 -BMT'S -LITHOTRIPSY AND RIGHT URETERAL STENT -EGD'S WITH ESOPHAGEAL DILATIONS -COLONOSCOPIES, LAST ONE 03/08/19 -PORT RIGHT CHEST -LEFT SHOULDER ROTATOR CUFF REPAIR 05/01/20--DR. PALACIOS -CONTINUOUS GLUCOSE MONITOR PRESENT 06/25/20--LLQ OF ABDOMEN--NOT PRESENT 10/2020 -BILATERAL CATARACT SURGERY 10/2020 -PERIPHERAL ANGIOGRAM 05/02/[address] ISIDRO: SEVERE BILATERAL SUPERFICIAL FEMORAL ARTERY DISEASE AND RECOMMENDED BILATERAL FEMORAL-POPLITEAL SURGERY--REFERRED TO DR. SAWYER AT [facility] [place] LONG HISTORY OF EXTREME NON-COMPLIANCE IN ALL ASPECTS OF CARE Review of Systems Constitutional: see HPI, malaise, weakness EENTM: no symptoms reported Respiratory: no symptoms reported Cardiovascular: no symptoms reported Gastrointestinal: no symptoms reported Genitourinary: no symptoms reported Musculoskeletal: back pain Skin: no symptoms reported Psychiatric/Neurological: No Symptoms Reported All Other Systems Reviewed Negative Unless Noted: Yes Physical Exam Physical Exam Vital Signs Vital Signs - First Documented 10/10/21 23:13 Temp 37.0 Pulse 78 Resp 18 B/P (MAP) 183/78 (113) Pulse Ox 98 O2 Delivery Room Air Capillary Refill : Less Than 3 Seconds Height, Weight, BMI Height: 5'1.00" Weight: 122lbs. 1.0oz. [id number]; 105.10 BMI Method:Estimated General Appearance: No Apparent Distress, Chronically ill, Thin, Other (More declined than previous exam) Eyes: Right Eye Normal Inspection, Right Eye PERRL HEENT: PERRL/EOMI, Normal ENT Inspection, Pharynx Normal, Moist Mucous Membranes Neck: Full Range of Motion, Normal Inspection, Non Tender Respiratory: Chest Non Tender, Lungs Clear, Normal Breath Sounds, No Accessory Muscle Use, No Respiratory Distress Cardiovascular: Regular Rate, Rhythm, No Edema, No Gallop, No JVD, No Murmur, Normal Peripheral Pulses Gastrointestinal: Normal Bowel Sounds, No Organomegaly, No Pulsatile Mass, Non Tender, Soft Back: Normal Inspection, No CVA Tenderness, No Vertebral Tenderness Extremity: Normal Capillary Refill, Normal Inspection, Normal Range of Motion, Non Tender, No Calf Tenderness, No Pedal Edema Neurologic/Psychiatric: Alert, Oriented x3, No Motor/Sensory Deficits, Normal Mood/Affect Skin: Normal Color, Warm/Dry Lymphatic: No Adenopathy Results Results/Procedures Labs Laboratory Tests 10/11/21 00:55 10/11/21 03:56 10/11/21 06:20 Patient resulted labs reviewed. Assessment/Plan Admission Diagnosis Assessment: Severe hyperglycemia nonketotic state requiring insulin drip Severe compression fractures with severe pain Diabetes vqv-kq-ufsdzbv noncompliant Current smoker GERD Chronic kidney disease Hypertension CAD Plan: Moved to the floor Monitor sugar Pain control Admission Status: Inpatient Order (span 2 midnights) Reason for Inpatient Admission: Hyperglycemia Clinical Quality Measures Smoking Cessation Counseling: Counseling-Symptomatic: 3-10 Minutes JAZMINE BERRY DO Oct 11, 2021 10:32
[2021-10-11] MEDS ORDERED: PROMETHAZINE 25 MG (PHENERGAN) TAB PO PRN (10:45)
[2021-10-11] MEDS ORDERED: ALTEPLASE 2 MG (CATHFLO) IV NR (10:45)
[2021-10-11] MEDS ORDERED: WATER (STERILE) FOR INJECTION 10 ML ONE (10:52)
[2021-10-11] MEDS: ENOXAPARIN 40 MG/0.4 ML (LOVENOX) SYR SC SCH (11:07)
[2021-10-11] MEDS: SUCRALFATE 1 GM (CARAFATE) TAB PO SCH ×3 (11:27→21:06)
--- NOTE | 2021-10-11 11:34 | Consultation - Surgery ---
OMARI FISH 10/11/21 1134: History of Present Illness History of Present Illness Patient Consulted On(joshua/time) 10/11/21 11:34 Date Seen by Provider: Oct 11, 2021 Time Seen by Provider: 09:04 Reason for Visit: Difficult port access History of Present Illness Surgery has been consulted for a difficult port access. Patient's port is on the right side of her chest. She said there was difficulty withdrawing blood when trying to access port yesterday. Has had previous difficulties with port flow in which Cathflo was used and helped the problem. Allergies and Home Medications Allergies Coded Allergies: ketorolac (Verified Allergy, Severe, ANAPHYLAXIS, PT TAKES ASA AT HOME, 03/06/19) scopolamine (Verified Allergy, Mild, Rash, 03/21/19) exenatide (Verified Allergy, Unknown, NAUSEA, 03/06/19) NON STOP VOMITING latex (Verified Allergy, Unknown, RASH, 03/06/19) metoclopramide (Verified Allergy, Unknown, RESTLESS LEGS, 03/06/19) erythromycin base (Verified Adverse Reaction, Unknown, 03/21/19) Patient Home Medication List Amlodipine Besylate (Amlodipine Besylate) 10 Mg Tablet, 10 MG PO DAILY, (Reported) Entered as Reported by: NAEL ABDI on 05/15/21 1506 Last Action: Continued Atorvastatin Calcium (Atorvastatin Calcium) 20 Mg Tablet, 20 MG PO HS, (Reported) Entered as Reported by: NAEL ABDI on 07/18/20 1357 Last Action: Continued Gabapentin (Gabapentin) 800 Mg Tablet, 1,600 MG PO HS, (Reported) Entered as Reported by: DUSTY WINN on 12/17/19 1019 Last Action: Converted Gabapentin (Gabapentin) 800 Mg Tablet, 800 MG PO DAILY, (Reported) Entered as Reported by: DENISSE JOE on 03/29/20 1053 Last Action: Converted Insulin Detemir (Levemir Flextouch) 100 Unit/1 Ml Insuln.pen, 15 UNIT SQ HS, (Reported) Entered as Reported by: NAEL ABDI on 09/16/21 1229 Last Action: Held Lisinopril (Lisinopril) 20 Mg Tablet, 20 MG PO DAILY Prescribed by: AZEEM MELVIN on 09/20/21 1202 Last Action: Continued Metoprolol Succinate (Metoprolol Succinate) 100 Mg Tab.er.24h, 100 MG PO DAILY, (Reported) Entered as Reported by: NAEL ABDI on 05/15/21 1506 Last Action: Continued Oxycodone HCl (Oxycodone HCl) 20 Mg Tablet, 20 MG PO Q4 -6H, (Reported) Entered as Reported by: NAEL ABDI on 09/16/21 1229 Last Action: Held Pantoprazole Sodium (Pantoprazole Sodium) 40 Mg Tablet.dr, 40 MG PO BIDAC, (Reported) Entered as Reported by: NAEL ABDI on 04/10/21 1009 Last Action: Continued Promethazine HCl (Promethazine Tablet) 25 Mg Tablet, 25 MG PO Q12H PRN for NAUSEA/VOMITING-1ST LINE, (Reported) Entered as Reported by: NAEL ABDI on 09/16/21 1229 Last Action: Continued Ropinirole HCl (Ropinirole HCl) 0.25 Mg Tablet, 0.25 MG PO HS, (Reported) Entered as Reported by: NAEL ABDI on 09/16/211228 Last Action: Continued Sucralfate (Carafate) 1 Gm Tablet, 1 GM PO ACHS Prescribed by: AZEEM MELVIN on 09/20/21 1202 Last Action: Continued Past Ueoxgqq-Dejzzf-Ovvqmm Hx Patient Social History Drug of Choice: NARCOTIC ABUSE Smoking Status: Current Everyday Smoker Type Used: Cigarettes 2nd Hand Smoke Exposure: No Recent Hopitalizations: Yes Alcohol Use?: No Have you traveled recently?: No Immunizations Up To Date Tetanus Booster (TDap): Unknown PED Vaccines UTD: No Date of Pneumonia Vaccine: Nov 06, 2019 Date of Influenza Vaccine: Aug 11, 2021 Seasonal Allergies Seasonal Allergies: Yes Surgeries History of Surgeries: Yes (Portacath placement, multiple EGDs and colonoscopy) Surgeries: Cardiac, Coronary Stent Respiratory History of Respiratory Disorde: Yes Respiratory Disorders: Chronic Bronchitis Cardiovascular History of Cardiac Disorders: Yes Cardiac Disorders: Coronary Artery Disease, Peripheral Vascular Neurological History of Neurological Disord: Yes Neurological Disorders: Neuropathy Reproductive System Hx Reproductive Disorders: No Sexually Transmitted Disease: No HIV/AIDS: No 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 Disorders: Denies 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 Genitourinary History of Genitourinary Disor: Yes Genitourinary Disorders: Renal Failure Gastrointestinal History of Gastrointestinal Di: Yes Gastrointestinal Disorders: Gastrointestinal Bleed, Esophagitis Musculoskeletal History of Musculoskeletal Dis: Yes Musculoskeletal Disorders: Arthritis Endocrine History of Endocrine Disorders: Yes Endocrine Disorders: Diabetes, Insulin dep HEENT History of HEENT Disorders: Yes HEENT Disorders: Macular Degeneration Loss of Vision: Bilateral Hearing Impairment: Hard of Hearing Cancer History of Cancer: No Psychosocial History of Psychiatric Problem: Yes Behavioral Health Disorders: Anxiety Integumentary History of Skin or Integumenta: Yes Skin/Integumentary Disorders: Psoriasis Blood Transfusions History of Blood Disorders: No Adverse Reaction to a Blood Tr: No Family Medical History Significant Family History: Heart Disease, Cancer, Renal Disease, Stroke Family Medial History: Cancer of mouth 19 FATHER ( of esophogeal cancer.) Cardiovascular disease 19 MOTHER G8 BROTHER Completed stroke 19 FATHER G8 BROTHER Diabetes mellitus G8 BROTHER FH: lung cancer 19 MOTHER Hypertension 19 FATHER Kidney disease 19 FATHER Myocardial infarction 19 MOTHER G8 BROTHER Respiratory disorder No Family History of: AIDS Review of Systems-General Constitutional: No chills, No diaphoresis EENTM: No hearing loss, No blurred vision Respiratory: No cough, No dyspnea on exertion Cardiovascular: other (Pt reports difficulties when trying to access port yesterday. Had pain when sticking needle into port and pain when attempt to withdraw blood from port.) Gastrointestinal: No abdominal pain, No constipation, No diarrhea Genitourinary: No dysuria, No hematuria Musculoskeletal: back pain (9/10 back pain); No muscle pain Skin: No change in color, No change in hair/nails Psychiatric/Neurological: Denies Headache, Denies Paresthesia Physical Exam-General Problems Physical Exam Vital Signs Vital Signs - First Documented 10/10/21 23:13 Temp 37.0 Pulse 78 Resp 18 B/P (MAP) 183/78 (113) Pulse Ox 98 O2 Delivery Room Air Capillary Refill : Less Than 3 Seconds General Appearance: no apparent distress, other (Elderly female) HEENT: PERRL/EOMI; No scleral icterus (R), No scleral icterus (L) Neck: non-tender, full range of motion, supple, normal inspection Respiratory: chest non-tender, no respiratory distress, no accessory muscle use, rhonchi Cardiovascular: regular rate, rhythm, no murmur, other (Port on patient's right chest. Port had a decreased flow when withdrawing blood and injecting saline) Peripheral Pulses: 2+ Dorsalis Pedis (R), 2+ Left Dors-Pedis (L), 2+ Radial Pulses (R), 2+ Radial Pulses (L) Gastrointestinal: normal bowel sounds, non tender, soft, no organomegaly Back: other (9/10 back pain) Extremities: non-tender, normal inspection, no pedal edema, no calf tenderness Neurologic/Psychiatric: alert, normal mood/affect, oriented x 3 Skin: normal color, warm/dry, other (elderly female with thin skin) Lymphatic: no adenopathy (Cervical and Supraclavicular) Data Review Labs Laboratory Tests 10/10/21 23:22: Glucometer 540*H 10/11/21 00:30: Urine Color YELLOW, Urine Clarity CLEAR, Urine pH 7.0, Urine Specific [place] 1.015L, Urine Protein 2+H, Urine Glucose (UA) 3+H, Urine Ketones NEGATIVE, Urine Nitrite NEGATIVE, Urine Bilirubin NEGATIVE, Urine Urobilinogen 0.2, Urine Leukocyte Esterase NEGATIVE, Urine RBC (Auto) 2+H, Urine RBC 2-5H, Urine WBC 0- 2, Urine Squamous Epithelial Cells 0-2, Urine Crystals NONE, Urine Bacteria TRACE, Urine Casts NONE, Urine Mucus NEGATIVE, Urine Culture Indicated NO, Urine Opiates Screen POSITIVEH, Urine Oxycodone Screen NEGATIVE, Urine Methadone Screen NEGATIVE, Urine Propoxyphene Screen NEGATIVE, Urine Barbiturates Screen NEGATIVE, Ur Tricyclic Antidepressants Screen NEGATIVE, Urine Phencyclidine Screen NEGATIVE, Urine Amphetamines Screen NEGATIVE, Urine Methamphetamines Screen NEGATIVE, Urine Benzodiazepines Screen NEGATIVE, Urine Cocaine Screen NEGATIVE, Urine Cannabinoids Screen NEGATIVE 10/11/21 00:55: White Blood Count 8.9, Red Blood Count 3.48L, Hemoglobin 9.8L, Hematocrit 31L, Mean Corpuscular Volume 89, Mean Corpuscular Hemoglobin 28, Mean Corpuscular Hemoglobin Concent 32, Red Cell Distribution Width 17.0H, Platelet Count 310, Mean Platelet Volume 9.7, Immature Granulocyte % (Auto) 1, Neutrophils (%) (Auto) 72, Lymphocytes (%) (Auto) 17, Monocytes (%) (Auto) 8, Eosinophils (%) (Auto) 2, Basophils (%) (Auto) 1, Neutrophils # (Auto) 6.4, Lymphocytes # (Auto) 1.5, Monocytes # (Auto) 0.7, Eosinophils # (Auto) 0.2, Basophils # (Auto) 0.1, Immature Granulocyte # (Auto) 0.1, Sodium Level 135, Potassium Level 4.1, Chloride Level 107, Carbon Dioxide Level 15L, Anion Gap 13, Blood Urea Nitrogen 17, Creatinine 1.45H, Estimat Glomerular Filtration Rate 37, BUN/Creatinine Ratio 12, Glucose Level 589*H, Lactic Acid Level 1.48, Calcium Level 7.9L, Corrected Calcium 9.1, Magnesium Level 1.5L, Total Bilirubin 0.2, Aspartate Amino Transf (AST/SGOT) 16, Alanine Aminotransferase (ALT/SGPT) 9, Alkaline Phosphatase 103, Myoglobin 44.4, Total Protein 6.7, Albumin 2.5L, Amylase Level 41, Lipase 22, Beta-Hydroxybutyrate (Chem panel) 0.06, Serum Alcohol < 10 10/11/21 02:14: Glucometer 471*H 10/11/21 03:25: Glucometer 394H 10/11/21 03:56: White Blood Count 9.4, Red Blood Count 3.57L, Hemoglobin 10.1L, Hematocrit 32L, Mean Corpuscular Volume 90, Mean Corpuscular Hemoglobin 28, Mean Corpuscular Hemoglobin Concent 31L, Red Cell Distribution Width 16.9H, Platelet Count 316, Mean Platelet Volume 9.7, Sodium Level 138, Potassium Level 3.9, Chloride Level 109H, Carbon Dioxide Level 16L, Anion Gap 13, Blood Urea Nitrogen 17, Creatinine 1.32H, Estimat Glomerular Filtration Rate 41, BUN/Creatinine Ratio 13, Glucose Level 401*H, Calcium Level 8.2L, Corrected Calcium 9.3, Phosphorus Level 2.7, Magnesium Level 1.4L, Total Bilirubin 0.2, Aspartate Amino Transf (AST/SGOT) 12, Alanine Aminotransferase (ALT/SGPT) 8, Alkaline Phosphatase 100, Total Protein 6.8, Albumin 2.6L, Beta-Hydroxybutyrate (Chem panel) 0.04 10/11/21 06:18: Glucometer 94 10/11/21 06:20: Sodium Level 142, Potassium Level 3.0L, Chloride Level 114H, Carbon Dioxide Level 17L, Anion Gap 11, Blood Urea Nitrogen 16, Creatinine 1.04, Estimat Glomerular Filtration Rate 54, BUN/Creatinine Ratio 15, Glucose Level 97, Calcium Level 7.9L 10/11/21 06:58: Glucometer 18*L 10/11/21 07:01: Glucometer 21*L 10/11/21 07:58: Glucometer 86 10/11/21 09:26: Glucometer 137H 10/11/21 11:32: Glucometer 290H Assessment/Plan Assessment/Plan Admission Diagonsis Right sided port flow difficulties Port had a decreased flow when withdrawing blood and injecting saline Use Cathflo to restore function of port Clinical Quality Measures Smoking Cessation Counseling: Counseling-Symptomatic: 3-10 Minutes ORI AYON DO 10/11/21 1315: History of Present Illness History of Present Illness Time Seen by Provider: 10:01 History of Present Illness Surgery consulted for non-functioning port. HPI: pt presented for severe back pain, uncontrolled. Hx of lytic lesion and multiple other medical problems. Attempts made in ER and in ICU to access port, unsuccessful. Pt states that when they tried it hurt, "it has never hurt before". She also stated that they had just used it yesterday in Same Day surgery and had no trouble. Allergies and Home Medications Allergies Coded Allergies: ketorolac (Verified Allergy, Severe, ANAPHYLAXIS, PT TAKES ASA AT HOME, 03/06/19) scopolamine (Verified Allergy, Mild, Rash, 03/21/19) exenatide (Verified Allergy, Unknown, NAUSEA, 03/06/19) NON STOP VOMITING latex (Verified Allergy, Unknown, RASH, 03/06/19) metoclopramide (Verified Allergy, Unknown, RESTLESS LEGS, 03/06/19) erythromycin base (Verified Adverse Reaction, Unknown, 03/21/19) Patient Home Medication List Home Medication List Reviewed: Yes Amlodipine Besylate (Amlodipine Besylate) 10 Mg Tablet, 10 MG PO DAILY, (Reported) Entered as Reported by: NAEL ABDI on 05/15/21 1506 Last Action: Continued Atorvastatin Calcium (Atorvastatin Calcium) 20 Mg Tablet, 20 MG PO HS, (Reported) Entered as Reported by: NAEL ABDI on 07/18/20 1357 Last Action: Continued Gabapentin (Gabapentin) 800 Mg Tablet, 1,600 MG PO HS, (Reported) Entered as Reported by: DUSTY WINN on 12/17/19 1019 Last Action: Converted Gabapentin (Gabapentin) 800 Mg Tablet, 800 MG PO DAILY, (Reported) Entered as Reported by: DENISSE JOE on 03/29/20 1053 Last Action: Converted Insulin Detemir (Levemir Flextouch) 100 Unit/1 Ml Insuln.pen, 15 UNIT SQ HS, (Reported) Entered as Reported by: NAEL ABDI on 09/16/211228 Last Action: Held Lisinopril (Lisinopril) 20 Mg Tablet, 20 MG PO DAILY Prescribed by: AZEEM MELVIN on 09/20/21 120 Last Action: Continued Metoprolol Succinate (Metoprolol Succinate) 100 Mg Tab.er.24h, 100 MG PO DAILY, (Reported) Entered as Reported by: NAEL ABDI on 05/15/21 1506 Last Action: Continued Oxycodone HCl (Oxycodone HCl) 20 Mg Tablet, 20 MG PO Q4 -6H, (Reported) Entered as Reported by: NAEL ABDI on 09/16/211228 Last Action: Held Pantoprazole Sodium (Pantoprazole Sodium) 40 Mg Tablet.dr, 40 MG PO BIDAC, (Reported) Entered as Reported by: NAEL ABDI on 04/10/21 1009 Last Action: Continued Promethazine HCl (Promethazine Tablet) 25 Mg Tablet, 25 MG PO Q12H PRN for N AUSEA/VOMITING-1ST LINE, (Reported) Entered as Reported by: NAEL ABDI on 09/16/211228 Last Action: Continued Ropinirole HCl (Ropinirole HCl) 0.25 Mg Tablet, 0.25 MG PO HS, (Reported) Entered as Reported by: NAEL ABDI on 09/16/211228 Last Action: Continued Sucralfate (Carafate) 1 Gm Tablet, 1 GM PO ACHS Prescribed by: AZEEM MELVIN on 09/20/21 120 Last Action: Continued Past Sxyvhit-Uiklyj-Xzeyxh Hx Surgeries History of Surgeries: Yes (EGD) Respiratory History of Respiratory Disorde: Yes Respiratory Disorders: COPD Cardiovascular History of Cardiac Disorders: Yes Cardiac Disorders: Hypertension Neurological History of Neurological Disord: Yes Neurological Disorders: Dementia, Neuropathy Gastrointestinal History of Gastrointestinal Di: Yes Gastrointestinal Disorders: Gastroesophageal Reflux, Gastrointestinal Bleed Musculoskeletal History of Musculoskeletal Dis: Yes Musculoskeletal Disorders: Degenerate Disk Disease, Arthritis, Chronic Back Pain Endocrine History of Endocrine Disorders: Yes Endocrine Disorders: Diabetes, Non-Insulin dep Cancer History of Cancer: Yes Family Medical History Significant Family History: Cancer, Diabetes, Hypertension Family Medial History: Cancer of mouth 19 FATHER ( of esophogeal cancer.) Cardiovascular disease 19 MOTHER G8 BROTHER Completed stroke 19 FATHER G8 BROTHER Diabetes mellitus G8 BROTHER FH: lung cancer 19 MOTHER Hypertension 19 FATHER Kidney disease 19 FATHER Myocardial infarction 19 MOTHER G8 BROTHER Respiratory disorder No Family History of: AIDS Review of Systems-General Constitutional: No chills, No diaphoresis; weakness EENTM: No hearing loss, No blurred vision Respiratory: No cough, No dyspnea on exertion Gastrointestinal: No abdominal pain, No constipation, No diarrhea Genitourinary: No dysuria, No hematuria Musculoskeletal: back pain (9/10 back pain), muscle stiffness Skin: No change in color, No change in hair/nails Psychiatric/Neurological: Denies Headache, Denies Paresthesia Physical Exam-General Problems Physical Exam General Appearance: mild distress, other (Elderly female) Eyes: Bilateral Eye PERRL, Bilateral Eye EOMI HEENT: pharynx normal; No scleral icterus (R), No scleral icterus (L) Respiratory: chest non-tender, no respiratory distress, no accessory muscle use, rhonchi Cardiovascular: regular rate, rhythm, no murmur Gastrointestinal: non tender, soft, no organomegaly Back: other (9/10 back pain) Extremities: no pedal edema, no calf tenderness Neurologic/Psychiatric: alert, oriented x 3 Skin: normal color, warm/dry, other (Port on patient's right chest. Port had a decreased flow when withdrawing blood and injecting saline) Assessment/Plan Assessment/Plan Assessment/Plan Malfunctioning port Chronic Back pain DM Port had a decreased flow when withdrawing blood and injecting saline Used Cathflo to restore function of port Supervisory-Addendum Brief Verification & Attestation Participated in pt care: history, MDM, physical Personally performed: exam, history, MDM, supervision of care Care discussed with: Medical Student Procedures: n/a Verification and Attestation of Medical Student E/M Service A medical student performed and documented this service. I then reviewed and verified all information documented by the medical student and made modifications to such information, when appropriate. I personally performed a physical exam, medical decision making and then discussed any differences between the notes and made revisions as necessary to create one note. Ori Ayon , 10/11/21 , 13:17 OMARI FISH Oct 11, 2021 11:34 ORI AYON DO Oct 11, 2021 13:15
[2021-10-11] MEDS: inSUlin ASPART (NovoLOG) 1 UNIT/0.01 ML (CHARGE PER UNIT) SC SCH ×3 (11:56→21:07)
[2021-10-11] MEDS: lisINopril 20 MG (PRINIVIL) TABLET PO SCH (11:57)
[2021-10-11] MEDS: meTOprolol SUCCINATE 100 MG (TOPROL XL) TAB PO SCH (11:57)
[2021-10-11] MEDS: amLODIPine 10 MG (NORVASC) TAB PO SCH (11:57)
[2021-10-11 14:10] VITALS: BP 154/73
[2021-10-11 15:39] VITALS: BP 156/72
[2021-10-11] MEDS: PANTOPRAZOLE 40 MG (PROTONIX) TAB PO SCH (16:29)
[2021-10-11 20:14] VITALS: BP 158/66
[2021-10-11] MEDS ORDERED: NON-FORMULARY MEDICATION 1 EA EA (Gabapentin 1,600 MG) PO SCH (21:00)
[2021-10-11] MEDS: rOPINIRole 0.25 MG (REQUIP) TAB PO SCH (21:05)
[2021-10-11] MEDS: SENNA W/DOCUSATE (SENOKOT S) TABLET PO SCH (21:06)
[2021-10-11] MEDS: GABAPENTIN 400 MG (NEURONTIN) CAP PO SCH (21:06)
[2021-10-11] MEDS: polyethylene glycoL POWDER 17 GM (MIRALAX) PACK PO SCH (21:47)
[2021-10-12] VITALS (7 sets, daily range): BP systolic 130–187; BP diastolic 66–79
[2021-10-12] MEDS ORDERED: KCL 20 MEQ TAB (K-DUR) PO SCH (06:00)
[2021-10-12] MEDS ORDERED: POTASSIUM CL 10MEQ/50ML IVPB 50 ML IV SCH (06:00)
[2021-10-12] MEDS ORDERED: MAGNESIUM 1 GM/100 ML IVPB 100 ML IV SCH (06:00)
[2021-10-12] MEDS: inSUlin ASPART (NovoLOG) 1 UNIT/0.01 ML (CHARGE PER UNIT) SC SCH ×4 (06:07→21:55)
[2021-10-12] MEDS: PANTOPRAZOLE 40 MG (PROTONIX) TAB PO SCH ×2 (06:22→15:35)
[2021-10-12] MEDS: SUCRALFATE 1 GM (CARAFATE) TAB PO SCH ×4 (06:22→21:54)
[2021-10-12 06:50] LABS: BASOPHILS # (AUTO) 0.1 10^3/uL (0.0-0.1); BASOPHILS % (AUTO) 1 % (0-10); EOSINOPHILS # (AUTO) 0.1 10^3/uL (0.0-0.3); EOSINOPHILS % (AUTO) 1 % (0-10); HEMATOCRIT 29 % (35-52); LYMPHOCYTES # (AUTO) 1.6 10^3/uL (1.0-4.0); LYMPHOCYTES % (AUTO) 18 % (12-44); MEAN CORPUSCULAR HEMOGLOBIN 28 pg (25-34); MEAN CORPUSCULAR HGB CONC 31 g/dL (32-36); MEAN CORPUSCULAR VOLUME 89 fL (80-99); MEAN PLATELET VOLUME 9.6 fL (9.0-12.2); MONOCYTES # (AUTO) 0.5 10^3/uL (0.0-1.0); MONOCYTES % (AUTO) 6 % (0-12); NEUTROPHILS # (AUTO) 6.6 10^3/uL (1.8-7.8); NEUTROPHILS % (AUTO) 74 % (42-75); PLATELET COUNT 315 10^3/uL (130-400); WHITE BLOOD COUNT 8.9 10^3/uL (4.3-11.0)
[2021-10-12 07:04] LABS: ALBUMIN 2.2 GM/DL (3.2-4.5); CHLORIDE 107 MMOL/L (98-107); POTASSIUM 4.9 MMOL/L (3.6-5.0); SODIUM 135 MMOL/L (135-145)
[2021-10-12 07:05] LABS: CALCIUM 8.1 MG/DL (8.5-10.1)
[2021-10-12 07:06] LABS: GLUCOSE 140 MG/DL (70-105); TOTAL PROTEIN 6.1 GM/DL (6.4-8.2)
[2021-10-12 07:08] LABS: BILIRUBIN,TOTAL 0.2 MG/DL (0.1-1.0); CARBON DIOXIDE 17 MMOL/L (21-32)
[2021-10-12 07:10] LABS: ALKALINE PHOSPHATASE 86 U/L (40-136); CREATININE SERUM 1.15 MG/DL (0.60-1.30); GFR ESTIMATED 48
[2021-10-12 07:11] LABS: BUN/CREATININE RATIO 15
[2021-10-12 07:13] LABS: ALANINE AMINOTRANSFERASE < 6 U/L (0-55)
[2021-10-12] MEDS ORDERED: NON-FORMULARY MEDICATION 1 EA EA (Gabapentin 800 MG) PO SCH (09:00)
[2021-10-12] MEDS: meTOprolol SUCCINATE 100 MG (TOPROL XL) TAB PO SCH (09:31)
[2021-10-12] MEDS: amLODIPine 10 MG (NORVASC) TAB PO SCH (09:31)
[2021-10-12] MEDS: SENNA W/DOCUSATE (SENOKOT S) TABLET PO SCH ×2 (09:31→21:54)
[2021-10-12] MEDS: lisINopril 20 MG (PRINIVIL) TABLET PO SCH (09:31)
[2021-10-12] MEDS: polyethylene glycoL POWDER 17 GM (MIRALAX) PACK PO SCH ×2 (09:31→21:54)
[2021-10-12] MEDS: ENOXAPARIN 40 MG/0.4 ML (LOVENOX) SYR SC SCH (09:32)
[2021-10-12] MEDS: GABAPENTIN 400 MG (NEURONTIN) CAP PO SCH ×2 (09:36→22:08)
--- NOTE | 2021-10-12 10:55 | Progress Note - Hospitalist ---
Subjective HPI/CC On Admission Date Seen by Provider: Oct 12, 2021 Time Seen by Provider: 11:00 Chief complaint: Hyperglycemia with back pain History of present illness: This is a 61-year-old white female who has a history of DKA brittle diabetes who presents to the ER with complaints of abdominal pain back pain and weakness. She fell sustaining compression fractures on Halloween and is struggling with the pain ever since. She was found to have severe hyperglycemia of 600 but no DKA meeting criteria for insulin drip for non-DKA status. We will restart her home medication and pain medication. Subjective/Events-last exam Patient about the same Severe back pain limits movement Bowels are moving Brittle diabetes Review of Systems Musculoskeletal: back pain Focused Exam Lactate Level 10/11/21 00:55: Lactic Acid Level 1.48 Objective Exam Vital Signs Vital Signs Date Time Temp Pulse Resp B/P (MAP) Pulse Ox O2 Delivery O2 Flow Rate FiO2 10/12/21 20:00 38.0 78 20 168/74 (105) 93 Room Air Capillary Refill : Less Than 3 Seconds General Appearance: No Apparent Distress, WD/WN, Chronically ill Respiratory: Lungs Clear, Normal Breath Sounds Cardiovascular: Regular Rate, Rhythm Neurologic/Psychiatric: Alert, Oriented x3, No Motor/Sensory Deficits, Normal Mood/Affect Results/Procedures Lab Laboratory Tests 10/12/21 06:43 Patient resulted labs reviewed. Assessment/Plan Assessment and Plan Assess & Plan/Chief Complaint Assessment: Severe hyperglycemia nonketotic state requiring insulin drip Severe compression fractures with severe pain Diabetes jie-[id number]-tkybtte noncompliant Current smoker GERD Chronic kidney disease Hypertension CAD Plan: Moved to the floor Monitor sugar Pain control 10/12/2021: Compression fracture management Clinical Quality Measures Smoking Cessation Counseling: Counseling-Symptomatic: 3-10 Minutes AZEEM MELVIN DO Oct 12, 2021 10:54
[2021-10-12] MEDS: fentaNYL INJ 100 MCG/2 ML AMP IVP PRN (21:54)
[2021-10-12] MEDS: rOPINIRole 0.25 MG (REQUIP) TAB PO SCH (22:07)
[2021-10-13 04:12] VITALS: BP 151/70
[2021-10-13] MEDS: PANTOPRAZOLE 40 MG (PROTONIX) TAB PO SCH ×2 (05:13→15:31)
[2021-10-13] MEDS: morphine INJ 4 MG/ML 1 ML (VIAL/SYRINGE) IVP PRN ×3 (05:13→17:19)
[2021-10-13] MEDS: SUCRALFATE 1 GM (CARAFATE) TAB PO SCH ×4 (05:14→22:32)
[2021-10-13] MEDS: inSUlin ASPART (NovoLOG) 1 UNIT/0.01 ML (CHARGE PER UNIT) SC SCH ×4 (05:15→21:00)
[2021-10-13 05:51] LABS: CHLORIDE 107 MMOL/L (98-107); SODIUM 134 MMOL/L (135-145)
[2021-10-13 05:52] LABS: CALCIUM 7.7 MG/DL (8.5-10.1)
[2021-10-13 05:53] LABS: GLUCOSE 106 MG/DL (70-105); TOTAL PROTEIN 5.6 GM/DL (6.4-8.2)
[2021-10-13 05:54] LABS: CARBON DIOXIDE 17 MMOL/L (21-32)
[2021-10-13 05:55] LABS: BILIRUBIN,TOTAL 0.2 MG/DL (0.1-1.0)
[2021-10-13 05:56] LABS: ALKALINE PHOSPHATASE 68 U/L (40-136)
[2021-10-13 05:57] LABS: GFR ESTIMATED 50
[2021-10-13 05:58] LABS: BUN/CREATININE RATIO 18
[2021-10-13 06:00] LABS: ALANINE AMINOTRANSFERASE < 6 U/L (0-55)
[2021-10-13 06:37] LABS: BASOPHILS % (AUTO) 0 % (0-10); EOSINOPHILS % (AUTO) 0 % (0-10); HEMATOCRIT 25 % (35-52); LYMPHOCYTES # (AUTO) 1.8 10^3/uL (1.0-4.0); LYMPHOCYTES % (AUTO) 22 % (12-44); MEAN CORPUSCULAR HEMOGLOBIN 28 pg (25-34); MEAN CORPUSCULAR HGB CONC 32 g/dL (32-36); MEAN CORPUSCULAR VOLUME 89 fL (80-99); MEAN PLATELET VOLUME 9.6 fL (9.0-12.2); MONOCYTES # (AUTO) 0.5 10^3/uL (0.0-1.0); MONOCYTES % (AUTO) 6 % (0-12); NEUTROPHILS # (AUTO) 5.9 10^3/uL (1.8-7.8); NEUTROPHILS % (AUTO) 71 % (42-75); PLATELET COUNT 236 10^3/uL (130-400); WHITE BLOOD COUNT 8.3 10^3/uL (4.3-11.0)
--- NOTE | 2021-10-13 07:25 | Progress Note - Surgery ---
Subjective Date Seen by a Provider: Oct 13, 2021 Time Seen by a Provider: 06:50 Subjective/Events-last exam This is Itzel a 61 yo female on day 2 of her hospital stay for uncontrolled diabetes and pathologic L2 fracture. Surgery was consulted for difficult port access in right upper chest. Upon entering the room patient was asleep in bed. After awaking she was in moderate distress and became emotional during question stating that she was in unbearable pain and discomfort. Pt stated that the pain was primarily in her lower back. She also complained of bed sores forming but stated that she was in such pain that she wont let any staff turn or move her. Throughout my time in the room she continued to request morphine stating that it's the only medication that helps. She is not eating or drinking much because she is not hungry. Her last BM was last week but she stated that this is normal for her. She is using the bedside commode to urinate and expresses extreme pain with movement. She now has a cough that started overnight. Review of Systems General: Appetite Pulmonary: Cough Gastrointestinal: Constipation Musculoskeletal: back pain Focused Exam Lactate Level 10/11/21 00:55: Lactic Acid Level 1.48 Time of Focused Exam: 06:55 Respiratory: Chest Non Tender, Inspiration, Wheezing (bilaterally) Cardiovascular: Regular Rate, Rhythm, No Edema Skin: warm/dry Objective Exam Vital Signs Date Time Temp Pulse Resp B/P (MAP) Pulse Ox O2 Delivery O2 Flow Rate FiO2 10/13/21 04:12 37.6 67 16 151/70 (97) 94 Room Air 10/12/21 23:34 37.6 67 18 130/76 (94) 92 Room Air 10/12/21 20:30 92 Room Air 10/12/21 20:00 38.0 78 20 168/74 (105) 93 Room Air 10/12/21 16:13 37.8 77 20 187/76 (113) 95 Room Air 10/12/21 11:15 36.4 76 16 184/72 (109) 94 Room Air 10/12/21 08:15 37.3 74 12 155/66 (95) 96 Room Air 10/12/21 08:00 Room Air I & O 10/13/21 07:00 Intake Total 1170 ml Balance 1170 ml Capillary Refill : Less Than 3 Seconds General Appearance: Anxious, Chronically ill, Moderate Distress HEENT: PERRL/EOMI Neck: Normal Inspection, Non Tender, Supple Respiratory: Lungs Clear, Inspiration, Wheezing Cardiovascular: Regular Rate, Rhythm, No Edema Peripheral Pulses: 2+ Dorsalis Pedis (R), 2+ Left Dors-Pedis (L), 2+ Radial Pulses (R), 2+ Radial Pulses (L) Gastrointestinal: non tender, distended Extremity: Normal Inspection, Non Tender, No Calf Tenderness, No Pedal Edema Neurologic/Psychiatric: Alert, Oriented x3, No Motor/Sensory Deficits, Normal Mood/Affect Skin: Normal Color, Warm/Dry Lymphatic: No Adenopathy (cervical or supraclavicular) Results Lab Laboratory Tests 10/12/21 11:19: Glucometer 137H 10/12/21 15:53: Glucometer 139H 10/12/21 21:00: Glucometer 236H 10/13/21 05:02: Glucometer 70 10/13/21 05:30: Sodium Level 134L, Potassium Level 4.0, Chloride Level 107, Carbon Dioxide Level 17L, Anion Gap 10, Blood Urea Nitrogen 20H, Creatinine 1.10, Estimat Glomerular Filtration Rate 50, BUN/Creatinine Ratio 18, Glucose Level 106H, Calcium Level 7.7L, Corrected Calcium 9.3, Total Bilirubin 0.2, Aspartate Amino Transf (AST/SGOT) 10, Alanine Aminotransferase (ALT/SGPT) < 6, Alkaline Phosphatase 68, Total Protein 5.6L, Albumin 2.0L 10/13/21 06:15: White Blood Count 8.3, Red Blood Count 2.87L, Hemoglobin 8.0L, Hematocrit 25L, Mean Corpuscular Volume 89, Mean Corpuscular Hemoglobin 28, Mean Corpuscular Hemoglobin Concent 32, Red Cell Distribution Width 16.9H, Platelet Count 236, Mean Platelet Volume 9.6, Immature Granulocyte % (Auto) 1, Neutrophils (%) (Auto) 71, Lymphocytes (%) (Auto) 22, Monocytes (%) (Auto) 6, Eosinophils (%) (Auto) 0, Basophils (%) (Auto) 0, Neutrophils # (Auto) 5.9, Lymphocytes # (Auto) 1.8, Monocytes # (Auto) 0.5, Eosinophils # (Auto) 0.0, Basophils # (Auto) 0.0, Immature Granulocyte # (Auto) 0.0 Assessment/Plan Assessment/Plan Assessment/Plan Assessment : Malfunctioning port Chronic Back pain DM hypertensive this morning of 151/70 constipation loss of appetite bed sores- stated, not observed cough Plan: Port had a decreased flow when withdrawing blood and injecting saline Used Cathflo to restore function of port continue stool softeners continue diabetes medications and blood sugar monitoring continue pain medications monitor cough- possible cough suppressant encourage fluids orthopedics consult Clinical Quality Measures Smoking Cessation Counseling: Counseling-Symptomatic: 3-10 Minutes SB PRIDE MED STUDENT Oct 13, 2021 07:25
[2021-10-13] MEDS: amLODIPine 10 MG (NORVASC) TAB PO SCH (07:54)
[2021-10-13] MEDS: lisINopril 20 MG (PRINIVIL) TABLET PO SCH (07:54)
[2021-10-13] MEDS: polyethylene glycoL POWDER 17 GM (MIRALAX) PACK PO SCH ×2 (07:54→22:31)
[2021-10-13] MEDS: meTOprolol SUCCINATE 100 MG (TOPROL XL) TAB PO SCH (07:54)
[2021-10-13] MEDS: SENNA W/DOCUSATE (SENOKOT S) TABLET PO SCH ×2 (07:55→22:32)
[2021-10-13] MEDS: GABAPENTIN 400 MG (NEURONTIN) CAP PO SCH ×2 (07:55→22:41)
[2021-10-13] MEDS: ENOXAPARIN 40 MG/0.4 ML (LOVENOX) SYR SC SCH (07:57)
[2021-10-13 07:58] VITALS: BP 162/78
[2021-10-13] MEDS ORDERED: SUCR1TAB PO (09:57)
[2021-10-13] MEDS ORDERED: LISI20TA26 PO (09:57)
[2021-10-13] MEDS ORDERED: DEXTROSE 50% 50 ML (IMS) SYR ONE (12:20)
[2021-10-13 12:37] VITALS: BP 118/59
[2021-10-13] MEDS ORDERED: D5 1/2 NS 1000 ML IV SOLUTION 1,000 ML IV SCH (15:00)
--- NOTE | 2021-10-13 15:23 | Progress Note ---
ORALIA MARIE MD 10/13/21 1523: Subjective Subjective/Events-last exam No acute events overnight aside from fever to 38C. This morning, patient reports continued severe pain in her back unrelieved with morphine and fentanyl. Denies chest pain or shortness of breath. No leg swelling. Focused Exam Lactate Level 10/11/21 00:55: Lactic Acid Level 1.48 Time of Focused Exam: 06:55 Objective Exam Last Set of Vital Signs Vital Signs Date Time Temp Pulse Resp B/P (MAP) Pulse Ox O2 Delivery O2 Flow Rate FiO2 10/13/21 12:37 37.2 60 16 118/59 (78) 91 Room Air Capillary Refill : Less Than 3 Seconds I&O Intake and Output 10/13/21 00:00 Intake Total 1210 ml Balance 1210 ml Intake Oral 1210 ml # Voids 6 General: Alert, Oriented X3 HEENT: Atraumatic, Mucous Memb Moist/[place] Neck: Supple, No JVD Lungs: Clear to Auscultation Heart: Regular Rate, Normal S1, Normal S2, No Murmurs Abdomen: Normal Bowel Sounds Psych/Mental Status: Mental Status NL Results/Procedures Lab Laboratory Tests 10/12/21 15:53: Glucometer 139H 10/12/21 21:00: Glucometer 236H 10/13/21 05:02: Glucometer 70 10/13/21 05:30: Sodium Level 134L, Potassium Level 4.0, Chloride Level 107, Carbon Dioxide Level 17L, Anion Gap 10, Blood Urea Nitrogen 20H, Creatinine 1.10, Estimat Glomerular Filtration Rate 50, BUN/Creatinine Ratio 18, Glucose Level 106H, Calcium Level 7.7L, Corrected Calcium 9.3, Total Bilirubin 0.2, Aspartate Amino Transf (AST/SGOT) 10, Alanine Aminotransferase (ALT/SGPT) < 6, Alkaline Phosphatase 68, C-Reactive Protein High Sensitivity 4.48H, Total Protein 5.6L, Albumin 2.0L 10/13/21 06:15: White Blood Count 8.3, Red Blood Count 2.87L, Hemoglobin 8.0L, Hematocrit 25L, Mean Corpuscular Volume 89, Mean Corpuscular Hemoglobin 28, Mean Corpuscular Hemoglobin Concent 32, Red Cell Distribution Width 16.9H, Platelet Count 236, Mean Platelet Volume 9.6, Immature Granulocyte % (Auto) 1, Neutrophils (%) (Auto) 71, Lymphocytes (%) (Auto) 22, Monocytes (%) (Auto) 6, Eosinophils (%) (Auto) 0, Basophils (%) (Auto) 0, Neutrophils # (Auto) 5.9, Lymphocytes # (Auto) 1.8, Monocytes # (Auto) 0.5, Eosinophils # (Auto) 0.0, Basophils # (Auto) 0.0, Immature Granulocyte # (Auto) 0.0 10/13/21 12:10: Glucometer 32*L 10/13/21 12:18: Glucometer 29*L 10/13/21 13:23: Glucometer 132H 10/13/21 14:27: 10/13/21 14:39: Glucometer 86 10/13/21 14:41: Glucometer 81 Assessment/Plan Assessment/Plan Admission Dx Hyperglycemia (1) Uncontrolled insulin dependent diabetes mellitus Status: Acute Assessment & Plan: History of IDDM presented with BGL near 600 requiring brief insulin drip, now transitioned to basal-bolus regimen with hypoglycemia requiring dextrose infusion. -D5 1/2 NS at 50 mL/hr -Will resume insulin regimen once glucose stabilizes (2) Compression fracture of L2 Status: Acute Assessment & Plan: CT spine on arrival with lytic lesion at L2 with compression fracture. Unclear etiology of lytic lesion. Differential considerations include multiple myeloma given concomitant anemia & CKD, infectious, or metastatic. CRP obtained and moderately elevated at 4.5, but no white count and blood cultures with only contaminant. -Tumor markers pending -Add SPEP -MRI ordered for further evaluation of lesion (3) HTN (hypertension) Status: Chronic Assessment & Plan: Elevated SBP intermittently to 180 on amlodipine 10 mg, lisinopril 20 mg, metoprolol 100 mg daily. -If persistent, will change metoprolol to carvedilol (4) Iron deficiency anemia due to chronic blood loss Status: Acute Assessment & Plan: Hemoglobin 8 from 9 yesterday. -Check iron studies, B12, folate (5) Restless leg syndrome Status: Acute Assessment & Plan: Continue home ropinirole. Clinical Quality Measures Smoking Cessation Counseling: Counseling-Symptomatic: 3-10 Minutes TABATHA COVARRUBIAS MD 10/13/21 [id number]: Supervisory-Addendum Brief Supervisory Addendum I personally have seen and evaluated the patient and agree with the documentation by PGY-3 Higinio Marie MD. I agree with the documented assessment and plan. ORALIA MARIE MD Oct 13, 2021 15:23 TABATHA COVARRUBIAS MD Oct 13, 2021 16:16
[2021-10-13 16:00] VITALS: BP 118/59
[2021-10-13] MEDS ORDERED: GADOTERATE 0.5 MMOL/ML (CLARISCAN) 15 ML VIAL IV ONE (17:45)
--- NOTE | 2021-10-13 18:58 | Diagnostic Imaging Report ---
EXAMINATION: MRI lumbar spine without contrast. TECHNIQUE: Multiplanar, multisequence MRI of the lumbar spine was performed without contrast. HISTORY: Back pain. COMPARISON: None available. FINDINGS: There is edema of the L2 vertebral body with a fracture of the inferior endplate. No contrast was able to be administered. However, there is low T1 signal at the area of the lytic lesion with high T2 signal suggestive of a malignant lesion. There is instrumented posterior spinal fusion of L3-S1. No other marrow replacing lesions are seen. There is no epidural extension of tumor or epidural hematoma. There is mild retrolisthesis of L1 on L2 with severe facet arthropathy and moderate spinal canal stenosis. At L2-L3, there is moderate spinal canal stenosis due to disc bulging and ligamentum flavum hypertrophy. The remaining levels of the lumbar spine are fused with posterior decompression and the thecal sac is widely decompressed. No other compression fracture is seen. The spinal cord signal intensity is normal. IMPRESSION: 1. Compression fracture of L2 with marrow replacing lesion in the inferior portion of the vertebral body corresponding to the lytic lesion on the prior CT. This is concerning for a pathologic compression fracture. 2. There is moderate spinal canal stenosis at L1-L2 and L2-L3 due to degenerative disc and facet disease. There is no epidural extension of tumor or epidural hematoma. Dictated by: Dictated on workstation # [id number]
[2021-10-13 19:29] VITALS: BP 126/67
[2021-10-13] MEDS: rOPINIRole 0.25 MG (REQUIP) TAB PO SCH (22:40)
[2021-10-13 23:55] VITALS: BP 134/67
[2021-10-14] VITALS (8 sets, daily range): BP systolic 135–167; BP diastolic 60–74
--- NOTE | 2021-10-14 01:58 | ED Back Pain ---
General Chief Complaint: Back Problems Stated Complaint: UNCONTROLLED DIABETES;PATHOLOGICAL L2 FX;S/P Nursing Triage Note: Pt arrives via EMS from home with c/o back pain; onset 09/21/21. Pt states she had a fall on 09/21, states since then she has been having back pain that has worsened tonight. Pt also had pre-op testing this AM, states she is to have a stent placed in her right leg. Denies changes in urinary/bowel. Nursing Sepsis Screen: No Definite Risk Source of Information: Patient (DIFFICULT HISTORIAN), Old Records History of Present Illness Date Seen by Provider: Oct 10, 2021 Time Seen by Provider: 23:22 Initial Comments PT ARRIVES VIA EMS FROM HOME C/O SEVERE PAIN IN LOWER BACK PT HAS CHRONIC BACK PAIN AND HAS HAD PRIOR LUMBAR SPINE SURGERY PT STATES SHE FELL AT [facility] ON 09/21/21--STATES SHE DID NOT HAVE ANY PAIN FOR A COUPLE OF DAYS, THEN IT GRADUALLY STARTED HURTING HAS NOT SOUGHT CARE UNTIL TONIGHT. STATES PAIN IS WORSE TONIGHT STATES SHE TOOK AN OXYCODONE AT 1700 TODAY WITHOUT RELIEF NO RADIATION OF PAIN , BUT PT HAS CHRONIC LEG PAIN--NO DIFFERENT THAN NORMAL NO PARESTHESIAS OR MOTOR DEFICITS NO LOSS OF BOWEL OR BLADDER CONTROL PT HAS CHRONIC LEG PAIN, AND STATES SHE IS TO HAVE A STENT IN HER RIGHT LEG AT [facility] NEXT Wednesday10/15/21, AND IS TO HAVE BYPASS ON LEFT LEG AT SOME TIME IN THE NEAR FUTURE. PT STATES SHE HAD PREOP TESTS DONE TODAY PT HERE A MULTITUDE OF TIMES FOR VARIOUS COMPLAINTS--MOST ARE DIABETIC-RELATED OR PAIN RELATED COMPLAINTS PT WITH LONG HISTORY OF NON-COMPLIANCE IN ALL ASPECTS OF CARE. SEE OLD CHARTS FOR DETAILS CLAIMS HER BLOOD GLUCOSE WAS 190 PRIOR TO ARRIVAL. PT STATES SHE HAS HAD BOTH COVID-19 VACCINES Other Comments PCP: KAYLA. 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 Allergies and Home Medications Allergies Coded Allergies: ketorolac (Verified Allergy, Severe, ANAPHYLAXIS, PT TAKES ASA AT HOME, 03/06/19) scopolamine (Verified Allergy, Mild, Rash, 03/21/19) exenatide (Verified Allergy, Unknown, NAUSEA, 03/06/19) NON STOP VOMITING latex (Verified Allergy, Unknown, RASH, 03/06/19) metoclopramide (Verified Allergy, Unknown, RESTLESS LEGS, 03/06/19) erythromycin base (Verified Adverse Reaction, Unknown, 03/21/19) Patient Home Medication List Home Medication List Reviewed: Yes Amlodipine Besylate (Amlodipine Besylate) 10 Mg Tablet, 10 MG PO DAILY, (Reported) Entered as Reported by: NAEL ABDI on 05/15/21 1506 Last Action: Reviewed Atorvastatin Calcium (Atorvastatin Calcium) 20 Mg Tablet, 20 MG PO HS, (Reported) Entered as Reported by: NAEL ABDI on 07/18/20 1357 Last Action: Reviewed Gabapentin (Gabapentin) 800 Mg Tablet, 1,600 MG PO HS, (Reported) Entered as Reported by: DUSTY WINN on 12/17/19 1019 Last Action: Reviewed Gabapentin (Gabapentin) 800 Mg Tablet, 800 MG PO DAILY, (Reported) Entered as Reported by: DENISSE JOE on 03/29/20 1053 Last Action: Reviewed Insulin Detemir (Levemir Flextouch) 100 Unit/1 Ml Insuln.pen, 10 UNIT SQ HS, (Reported) Entered as Reported by: NAEL ABDI on 09/16/21 1229 Last Action: Reviewed Lisinopril (Lisinopril) 20 Mg Tablet, 20 MG PO DAILY, (Reported) Entered as Reported by: AMELIA BOSS on 10/13/21 0957 Last Action: Reviewed Metoprolol Succinate (Metoprolol Succinate) 100 Mg Tab.er.24h, 100 MG PO DAILY, (Reported) Entered as Reported by: NAEL ABDI on 05/15/21 1506 Last Action: Reviewed Oxycodone HCl (Oxycodone HCl) 20 Mg Tablet, 20 MG PO Q4 -6H, (Reported) Entered as Reported by: NAEL ABDI on 09/16/21 1229 Last Action: Reviewed Pantoprazole Sodium (Pantoprazole Sodium) 40 Mg Tablet.dr, 40 MG PO BIDAC, (Reported) Entered as Reported by: NAEL ABDI on 04/10/21 1009 Last Action: Reviewed Promethazine HCl (Promethazine Tablet) 25 Mg Tablet, 25 MG PO Q12H PRN for NAUSEA/VOMITING-1ST LINE, (Reported) Entered as Reported by: NAEL ABDI on 09/16/21 1229 Last Action: Reviewed Ropinirole HCl (Ropinirole HCl) 0.25 Mg Tablet, 0.5 MG PO HS, (Reported) Entered as Reported by: NAEL ABDI on 09/16/21 1229 Last Action: Reviewed Sucralfate (Sucralfate) 1 Gm Tablet, 1 GM PO ACHS, (Reported) Entered as Reported by: AMELIA BOSS on 10/13/21 0929 Last Action: Reviewed Discontinued Medications Lisinopril (Lisinopril) 20 Mg Tablet, 20 MG PO DAILY Discontinued Reason: No Longer Taking Prescribed by: AZEEM MELVIN on 09/20/21 120 Last Action: Discontinued Sucralfate (Carafate) 1 Gm Tablet, 1 GM PO ACHS Discontinued Reason: Duplicate Order Prescribed by: AZEEM MELVIN on 09/20/211201 Last Action: Discontinued Review of Systems Constitutional: no symptoms reported Respiratory: no symptoms reported Cardiovascular: no symptoms reported Gastrointestinal: no symptoms reported Genitourinary: no symptoms reported Musculoskeletal: see HPI, back pain Skin: no symptoms reported Psychiatric/Neurological: No Symptoms Reported Past [id number] Hx Patient Social History Tobacco Use?: Yes Tobacco type used: Cigarettes Smoking Status: Current Everyday Smoker Smokeless Tobacco Frequency: Current Everyday User Use of E-Cig and/or Vaping dev: No Substance use?: No Alcohol Use?: No Pt feels they are or have been: No Immunizations Up To Date Tetanus Booster (TDap): Unknown PED Vaccines UTD: No Influenza Vaccine Up-to-Date: Yes; Up-to-Date First/Initial COVID19 Vaccinat: January 2021 Second COVID19 Vaccination Sharif: February 2021 Third COVID19 Vaccination Date: January 2021 Seasonal Allergies Seasonal Allergies: Yes Past Medical History Surgery/Hospitalization HX: NON-COMPLIANT DM, CVA, SEIZURES, HTN, CARDIAC STENTS, DVT, FIBROMYALGIA, IBS, LAMINECTOMY, SUBSTANCE ABUSE Surgeries: Yes (EGD) Cardiac, Coronary Stent, Orthopedic Respiratory: Yes COPD Currently Using CPAP: No Currently Using BIPAP: No Cardiac: Yes Hypertension Neurological: Yes Dementia, Neuropathy Reproductive Disorders: No 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 Disorders: Denies 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 Sexually Transmitted Disease: No HIV/AIDS: No Genitourinary: Yes Renal Failure Gastrointestinal: Yes Gastroesophageal Reflux, Gastrointestinal Bleed Musculoskeletal: Yes Degenerate Disk Disease, Arthritis, Chronic Back Pain Endocrine: Yes Diabetes, Non-Insulin dep HEENT: Yes Macular Degeneration Loss of Vision: Bilateral Hearing Impairment: Hard of Hearing Cancer: Yes Psychosocial: Yes Anxiety Integumentary: Yes Psoriasis Blood Disorders: No Adverse Reaction/Blood Tranf: No Family Medical History Cancer of mouth 19 FATHER ( of esophogeal cancer.) Cardiovascular disease 19 MOTHER G8 BROTHER Completed stroke 19 FATHER G8 BROTHER Diabetes mellitus G8 BROTHER FH: lung cancer 19 MOTHER Hypertension 19 FATHER Kidney disease 19 FATHER Myocardial infarction 19 MOTHER G8 BROTHER Respiratory disorder No Family History of: AIDS Cancer, Diabetes, Hypertension SOCIAL HISTORY: -ETOH--RARELY USES -DRUGS--Rx NARCOTIC ABUSE -SMOKES 1 PPD PSH: -LINQ DEVICE PLACED 11/09/19 FOR REPORTED PALPITATIONS X 6 MONTHS, SINCE PERCOCET WAS DC'D -MULTIPLE CARDIAC CATHS--STENT X 1 TO LAD 07/13/15. LAST CATH 01/18/19--NO INTERVENTION -LUMBAR SPINE FUSION X 3--12/2002, 04/2007, AND 05/2007 -LUMBAR DISCECTOMY 10/2000--? LAMINECTOMY? -CERVICAL SPINE FUSION 11/2006 -CHOLECYSTECTOMY 1983 -BMT'S -LITHOTRIPSY AND RIGHT URETERAL STENT -EGD'S WITH ESOPHAGEAL DILATIONS -COLONOSCOPIES, LAST ONE 03/08/19 -PORT RIGHT CHEST -LEFT SHOULDER ROTATOR CUFF REPAIR 05/01/20--DR. PALACIOS -CONTINUOUS GLUCOSE MONITOR PRESENT 06/25/20--LLQ OF ABDOMEN--NOT PRESENT 10/2020 -BILATERAL CATARACT SURGERY 10/2020 -PERIPHERAL ANGIOGRAM 05/02/[address] FELIX: SEVERE BILATERAL SUPERFICIAL FEMORAL ARTERY DISEASE AND RECOMMENDED BILATERAL FEMORAL-POPLITEAL SURGERY--REFERRED TO DR. SAWYER AT [facility] HISTORY OF EXTREME NON-COMPLIANCE IN ALL ASPECTS OF CARE Physical Exam Vital Signs Vital Signs - First Documented 10/10/21 23:13 Temp 37.0 Pulse 78 Resp 18 B/P (MAP) 183/78 (113) Pulse Ox 98 O2 Delivery Room Air Capillary Refill : Less Than 3 Seconds Height, Weight, BMI Height: 5'1.00" Weight: 122lbs. 1.0oz. 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 Norm as Tested Skin: Normal Color, Warm/Dry Progress/Results/Core Measures Results/Orders Lab Results Laboratory Tests Test 10/10/21 23:22 10/11/21 00:30 10/11/21 00:55 Range/Units Glucometer 540 *H 70-110 MG/DL Urine Color YELLOW Urine Clarity CLEAR Urine pH 7.0 5-9 Urine Specific Mcalester 1.015 L 1.016-1.022 Urine Protein 2+ H NEGATIVE Urine Glucose (UA) 3+ H NEGATIVE Urine Ketones NEGATIVE NEGATIVE Urine Nitrite NEGATIVE NEGATIVE Urine Bilirubin NEGATIVE NEGATIVE Urine Urobilinogen 0.2 < = 1.0 MG/DL Urine Leukocyte Esterase NEGATIVE NEGATIVE Urine RBC (Auto) 2+ H NEGATIVE Urine RBC 2-5 H /HPF Urine WBC 0-2 /HPF Urine Squamous Epithelial Cells 0-2 /HPF Urine Crystals NONE /LPF Urine Bacteria TRACE /HPF Urine Casts NONE /LPF Urine Mucus NEGATIVE /LPF Urine Culture Indicated NO Urine Opiates Screen POSITIVE H NEGATIVE Urine Oxycodone Screen NEGATIVE NEGATIVE Urine Methadone Screen NEGATIVE NEGATIVE Urine Propoxyphene Screen NEGATIVE NEGATIVE Urine Barbiturates Screen NEGATIVE NEGATIVE Ur Tricyclic Antidepressants Screen NEGATIVE NEGATIVE Urine Phencyclidine Screen NEGATIVE NEGATIVE Urine Amphetamines Screen NEGATIVE NEGATIVE Urine Methamphetamines Screen NEGATIVE NEGATIVE Urine Benzodiazepines Screen NEGATIVE NEGATIVE Urine Cocaine Screen NEGATIVE NEGATIVE Urine Cannabinoids Screen NEGATIVE NEGATIVE White Blood Count 8.9 4.3-11.0 10^3/uL Red Blood Count 3.48 L 3.80-5.11 10^6/uL Hemoglobin 9.8 L 11.5-16.0 g/dL Hematocrit 31 L 35-52 % Mean Corpuscular Volume 89 80-99 fL Mean Corpuscular Hemoglobin 28 25-34 pg Mean Corpuscular Hemoglobin Concent 32 32-36 g/dL Red Cell Distribution Width 17.0 H 10.0-14.5 % Platelet Count 310 130-400 10^3/uL Mean Platelet Volume 9.7 9.0-12.2 fL Immature Granulocyte % (Auto) 1 % Neutrophils (%) (Auto) 72 42-75 % Lymphocytes (%) (Auto) 17 12-44 % Monocytes (%) (Auto) 8 0-12 % Eosinophils (%) (Auto) 2 0-10 % Basophils (%) (Auto) 1 0-10 % Neutrophils # (Auto) 6.4 1.8-7.8 10^3/uL Lymphocytes # (Auto) 1.5 1.0-4.0 10^3/uL Monocytes # (Auto) 0.7 0.0-1.0 10^3/uL Eosinophils # (Auto) 0.2 0.0-0.3 10^3/uL Basophils # (Auto) 0.1 0.0-0.1 10^3/uL Immature Granulocyte # (Auto) 0.1 0.0-0.1 10^3/uL Sodium Level 135 135-145 MMOL/L Potassium Level 4.1 3.6-5.0 MMOL/L Chloride Level 107 98-107 MMOL/L Carbon Dioxide Level 15 L 21-32 MMOL/L Anion Gap 13 5-14 MMOL/L Blood Urea Nitrogen 17 7-18 MG/DL Creatinine 1.45 H 0.60-1.30 MG/DL Estimat Glomerular Filtration Rate 37 BUN/Creatinine Ratio 12 Glucose Level 589 *H 70-105 MG/DL Mean Blood Glucose 220 H <=126 mg/dL Hemoglobin A1c 9.3 H 4.0-5.6 % Lactic Acid Level 1.48 0.50-2.00 MMOL/L Calcium Level 7.9 L 8.5-10.1 MG/DL Corrected Calcium 9.1 8.5-10.1 MG/DL Magnesium Level 1.5 L 1.6-2.4 MG/DL Total Bilirubin 0.2 0.1-1.0 MG/DL Aspartate Amino Transf (AST/SGOT) 16 5-34 U/L Alanine Aminotransferase (ALT/SGPT) 9 0-55 U/L Alkaline Phosphatase 103 40-136 U/L Myoglobin 44.4 10.0-92.0 NG/ML Total Protein 6.7 6.4-8.2 GM/DL Albumin 2.5 L 3.2-4.5 GM/DL Amylase Level 41 25-125 U/L Lipase 22 8-78 U/L Beta-Hydroxybutyrate (Chem panel) 0.06 0.00-0.27 MMOL/L Serum Alcohol < 10 <10 MG/DL My Orders Orders - PURA PIÑA DO Ua Culture If Indicated (10/10/21:) Accucheck Stat ONCE (10/10/21:28) Ed Iv/Invasive Line Start (10/10/21 23:28) Alcohol (10/10/21:) Amylase (10/10/21:) Cbc With Automated Diff (10/10/21) Comprehensive Metabolic Panel (10/10/21) Drug Screen Stat (Urine) (10/10/21:) Lactic Acid Analyzer (10/10/21) Lipase (10/10/21:) Magnesium (10/10/21) Myoglobin Serum (10/10/21:) Ct Thoracic/Lumbar Spine Wo (10/10/21:28) Ed Iv/Invasive Line Start (10/10/21:28) Ns Iv 1000 Ml (Sodium Chloride 0.9%) (10/10/21 23:30) Insulin (Regular) Human (Novolin R (Per (10/11/21 01:45) Ed Iv/Invasive Line Start (10/11/21 01:44) Ns Iv 1000 Ml (Sodium Chloride 0.9%) (10/11/21 01:45) Vital Signs/I&O 10/10/21 23:13 Temp 37.0 Pulse 78 Resp 18 B/P (MAP) 183/78 (113) Pulse Ox 98 O2 Delivery Room Air Blood Pressure Mean: 89 FSBG Bedside Testing Finger Stick Blood Glucose: 99 Blood Glucose Action Taken: rn notified Progress Progress Note : Progress Note UNABLE TO ACCESS PORT PERIPHERAL IV STARTED AND GIVEN IV FLUIDS AND INSULIN--REPEAT BLOOD GLUCOSE 471, PRIOR TO INSULIN. DOWN TO 394 AT TIME OF ADMIT. PT KNOWN TO BE VERY SENSITIVE TO INSULIN, AND BLOOD SUGARS USUALLY VERY EASILY CONTROLLED ON SMALL DOSES OF INSULIN WHILE IN HOSPITAL. NO DETERIORATION IN PT'S CONDITION DURING ER STAY Diagnostic Imaging Comments CT THORACIC AND LUMBAR SPINE--PER RADIOLOGIST REPORT AT 0030 FINDINGS: Thoracic spine: There is mild right convex curvature of the midthoracic spine. There is no significant spondylolisthesis. Anterior fusion hardware is noted in the lower cervical spine. Vertebral body heights are preserved. No acute fracture is seen. There are advanced degenerative changes, more pronounced in the mid and lower thoracic spine. No acute fracture is seen. There is motion artifact on multiple images. Surrounding soft tissues demonstrate no acute abnormality. Lumbar spine: There is posterior fusion of the lumbar spine from L3 down to S1 with bilateral pedicle screws and posterior fusion rods. No loosening or hardware fracture is seen. There is grade 1 anterolisthesis at L3-L4. Interbody disc spacers are seen at the interval levels of the fusion. There appears to be bony bridging of the posterior elements as well. There are marked degenerative changes at T12-L1 and at L1-L2. There is marked bony destruction and erosion at the anterior inferior aspect of the L2 vertebral body with pathologic fracture of the inferior endplate. This is new since 06/25/2020. There is surrounding soft tissue thickening at this level, particularly into the left psoas. No significant spinal canal stenosis is seen by CT. Soft tissues about the lumbar spine otherwise demonstrate no acute abnormality. IMPRESSION: 1. Lytic lesion of the L2 vertebral body with associated pathologic fracture of the inferior endplate. This could be due to infection or neoplasm. Recommend follow-up MRI with and without contrast. Spinal canal stenosis is not appreciated by CT. 2. Posterior fusion of L3-S1. No hardware complication is seen. 3. Marked degenerative changes in the thoracic spine. Reviewed: Reviewed by Hi Departure Communication (Admissions) 0157--SPOKE WITH DR. MELVIN, HOSPITALIST FOR [facility]. ACCEPTS PT FOR ADMIT. ORDERS NOTED 0217--REPORT TO E-ICU PHYSICIAN. Impression Primary Impression: Uncontrolled insulin dependent diabetes mellitus Additional Impressions: Compression fracture of L2 LYTIC LESION OF LUMBAR VERTEBRA Acute exacerbation of chronic low back pain PATHOLOGICAL FRACTURE OF L2 S/P FALL FROM STANDING Peripheral artery disease Chronic anemia Acute on chronic renal insufficiency Hypomagnesemia Smoker Chronic narcotic use HTN (hypertension) MALFUNCTIONING PORT A CATH Disposition: ADMITTED INPATIENT Condition: Improved Admissions Decision to Admit Reason: Admit from ER (General) Decision to Admit/Date: Oct 11, 2021 Time/Decision to Admit Time: 02:00 Departure-Patient Inst. [place]: [facility] [place] Primary Care Physician PURA PIÑA DO Oct 14, 2021 01:58
[2021-10-14] MEDS: morphine INJ 4 MG/ML 1 ML (VIAL/SYRINGE) IVP PRN ×2 (04:26→12:34)
[2021-10-14 04:59] LABS: BASOPHILS % (AUTO) 1 % (0-10); EOSINOPHILS # (AUTO) 0.1 10^3/uL (0.0-0.3); EOSINOPHILS % (AUTO) 1 % (0-10); HEMATOCRIT 25 % (35-52); HEMOGLOBIN 7.9 g/dL (11.5-16.0); LYMPHOCYTES # (AUTO) 2.6 10^3/uL (1.0-4.0); LYMPHOCYTES % (AUTO) 38 % (12-44); MEAN CORPUSCULAR HEMOGLOBIN 28 pg (25-34); MEAN CORPUSCULAR HGB CONC 32 g/dL (32-36); MEAN CORPUSCULAR VOLUME 88 fL (80-99); MEAN PLATELET VOLUME 10.6 fL (9.0-12.2); MONOCYTES # (AUTO) 0.4 10^3/uL (0.0-1.0); MONOCYTES % (AUTO) 6 % (0-12); NEUTROPHILS # (AUTO) 3.7 10^3/uL (1.8-7.8); NEUTROPHILS % (AUTO) 54 % (42-75); PLATELET COUNT 256 10^3/uL (130-400); WHITE BLOOD COUNT 6.8 10^3/uL (4.3-11.0)
[2021-10-14 05:21] LABS: POTASSIUM 4.4 MMOL/L (3.6-5.0)
[2021-10-14 05:22] LABS: CALCIUM 7.7 MG/DL (8.5-10.1)
[2021-10-14 05:26] LABS: CREATININE SERUM 1.21 MG/DL (0.60-1.30)
[2021-10-14 05:45] LABS: BAND NEUTROPHILS 1 %; BURR CELLS SLIGHT; LYMPHOCYTES % (MANUAL) 38 %; MONOCYTES % (MANUAL) 5 %; NEUTROPHILS % (MANUAL) 56 %
[2021-10-14] MEDS: inSUlin ASPART (NovoLOG) 1 UNIT/0.01 ML (CHARGE PER UNIT) SC SCH ×4 (06:37→22:21)
[2021-10-14] MEDS: PANTOPRAZOLE 40 MG (PROTONIX) TAB PO SCH ×2 (06:37→17:31)
[2021-10-14] MEDS: SUCRALFATE 1 GM (CARAFATE) TAB PO SCH ×4 (06:37→22:08)
[2021-10-14 08:22] LABS: ABSOLUTE RETIC # 43 10e9/uL (24-90); RETICULOCYTE % 1.53 % (0.50-2.40)
--- NOTE | 2021-10-14 08:38 | Progress Note ---
Subjective Subjective/Events-last exam MRI obtained yesterday with marrow replacing lesion present of unknown etiology. BGL dropped requiring dextrose containing fluids overnight. No acute events overnight. Patient reports continued bilateral hip and back pain this AM, but otherwise denies new symptoms. She is frustrated by her lack of pain control. Focused Exam Time of Focused Exam: 06:55 Objective Exam Last Set of Vital Signs Vital Signs Date Time Temp Pulse Resp B/P (MAP) Pulse Ox O2 Delivery O2 Flow Rate FiO2 10/14/21 03:50 37.2 67 14 151/74 (99) 91 Room Air 10/13/21 19:29 4.00 Capillary Refill : Less Than 3 Seconds I&O Intake and Output 10/14/21 00:00 Intake Total 1340 ml Balance 1340 ml Intake Oral 1340 ml # Voids 8 # Bowel Movements 3 General: Alert, Oriented X3, Mild Distress HEENT: Atraumatic Neck: Supple Lungs: Clear to Auscultation Heart: Regular Rate, Normal S1, Normal S2, No Murmurs Abdomen: Normal Bowel Sounds Skin: No Rashes Psych/Mental Status: Mental Status NL Results/Procedures Lab Laboratory Tests 10/13/21 12:10: Glucometer 32*L 10/13/21 12:18: Glucometer 29*L 10/13/21 13:23: Glucometer 132H 10/13/21 14:27: Iron Level 10L, Total Iron Binding Capacity 117L, Unsaturated Iron Binding Capacity 107, Transferrin % Saturation 9L, Ferritin 354.9H, Total Protein (PEP) 5.1L, Protein Electrophoresis Pathologist SEE PATH REPORT, Vitamin B12 Level 364, Folate 6.7 10/13/21 14:39: Glucometer 86 10/13/21 14:41: Glucometer 81 10/13/21 15:59: Glucometer 91 10/13/21 20:59: Glucometer 99 10/14/21 04:30: White Blood Count 6.8, Red Blood Count 2.84L, Hemoglobin 7.9L, Hematocrit 25L, Mean Corpuscular Volume 88, Mean Corpuscular Hemoglobin 28, Mean Corpuscular Hemoglobin Concent 32, Red Cell Distribution Width 17.0H, Platelet Count 256, Mean Platelet Volume 10.6, Immature Granulocyte % (Auto) 0, Neutrophils (%) (Auto) 54, Lymphocytes (%) (Auto) 38, Monocytes (%) (Auto) 6, Eosinophils (%) (Auto) 1, Basophils (%) (Auto) 1, Neutrophils # (Auto) 3.7, Lymphocytes # (Auto) 2.6, Monocytes # (Auto) 0.4, Eosinophils # (Auto) 0.1, Basophils # (Auto) 0.0, Immature Granulocyte # (Auto) 0.0, Neutrophils % (Manual) 56, Lymphocytes % (Manual) 38, Monocytes % (Manual) 5, Band Neutrophils 1, Percent Immature Platelet Fraction 2.3, Milad Cells SLIGHT, Absolute Reticulocyte Count 43, Percent Reticulocyte Count 1.53, Sodium Level 133L, Potassium Level 4.4, Chloride Level 104, Carbon Dioxide Level 18L, Anion Gap 11, Blood Urea Nitrogen 22H, Creatinine 1.21, Estimat Glomerular Filtration Rate 45, BUN/Creatinine Ratio 18, Glucose Level 253H, Calcium Level 7.7L 10/14/21 05:55: Glucometer 244H Assessment/Plan Assessment/Plan (1) Uncontrolled insulin dependent diabetes mellitus Status: Acute Assessment & Plan: History of IDDM presented with BGL near 600 requiring brief insulin drip, now transitioned to basal-bolus regimen with hypoglycemia requiring dextrose infusion. -D5 1/2 NS at 50 mL/hr -Will resume insulin regimen once glucose stabilizes (2) Compression fracture of L2 Status: Acute Assessment & Plan: CT spine on arrival with lytic lesion at L2 with compression fracture. Unclear etiology of lytic lesion. Differential considerations include multiple myeloma given concomitant anemia & CKD, infectious, or metastatic. CRP obtained and moderately elevated at 4.5, but no white count and blood cultures with only contaminant. -Tumor markers pending -Add SPEP -MRI ordered for further evaluation of lesion Qualifiers: Qualified Codes: S32.020A - Wedge compression fracture of second lumbar vertebra, initial encounter for closed fracture (3) HTN (hypertension) Status: Chronic Assessment & Plan: Elevated SBP intermittently to 180 on amlodipine 10 mg, lisinopril 20 mg, metoprolol 100 mg daily. -If persistent, will change metoprolol to carvedilol Qualifiers: Qualified Codes: I10 - Essential (primary) hypertension (4) Iron deficiency anemia due to chronic blood loss Status: Acute Assessment & Plan: Hemoglobin 8 from 9 yesterday. -Check iron studies, B12, folate (5) Restless leg syndrome Status: Acute Assessment & Plan: Continue home ropinirole. Clinical Quality Measures Smoking Cessation Counseling: Counseling-Symptomatic: 3-10 Minutes ORALIA MARIE MD Oct 14, 2021 08:38
[2021-10-14] MEDS: polyethylene glycoL POWDER 17 GM (MIRALAX) PACK PO SCH ×2 (09:33→22:09)
[2021-10-14] MEDS: ENOXAPARIN 40 MG/0.4 ML (LOVENOX) SYR SC SCH (09:33)
[2021-10-14] MEDS: GABAPENTIN 400 MG (NEURONTIN) CAP PO SCH ×2 (09:33→22:12)
[2021-10-14] MEDS: meTOprolol SUCCINATE 100 MG (TOPROL XL) TAB PO SCH (09:33)
[2021-10-14] MEDS: SENNA W/DOCUSATE (SENOKOT S) TABLET PO SCH (09:33)
[2021-10-14] MEDS: amLODIPine 10 MG (NORVASC) TAB PO SCH (09:33)
[2021-10-14] MEDS: lisINopril 20 MG (PRINIVIL) TABLET PO SCH (09:33)
--- NOTE | 2021-10-14 13:45 | Progress Note ---
ORALIA MARIE MD 10/14/21 1345: Subjective Subjective/Events-last exam Patient received morphine 4 mg x 3, oxycodone 30 mg x 1, and no fentanyl for pain control in prior 24 hours. Due to hypoglycemia, insulin was held and she was started on dextrose infusion. No acute events overnight. She reports continued low back and bilateral hip pain this morning, but no new symptoms including shortness of breath, chest pain, and abdominal pain. Focused Exam Time of Focused Exam: 06:55 Objective Exam Last Set of Vital Signs Vital Signs Date Time Temp Pulse Resp B/P (MAP) Pulse Ox O2 Delivery O2 Flow Rate FiO2 10/14/21 08:00 95 Room Air 10/14/21 08:00 36.5 94 16 167/66 (99) 10/13/21 19:29 4.00 Capillary Refill : Less Than 3 Seconds I&O Intake and Output 10/14/21 00:00 Intake Total 1340 ml Balance 1340 ml Intake Oral 1340 ml # Voids 8 # Bowel Movements 3 General: Alert, Oriented X3 HEENT: Atraumatic, Other (Poor dentition) Neck: Supple Lungs: Clear to Auscultation Heart: Regular Rate, Normal S1, Normal S2, No Murmurs Abdomen: Normal Bowel Sounds Skin: No Rashes Psych/Mental Status: Mental Status NL Results/Procedures Lab Laboratory Tests 10/13/21 14:27: Iron Level 10L, Total Iron Binding Capacity 117L, Unsaturated Iron Binding Capacity 107, Transferrin % Saturation 9L, Ferritin 354.9H, Total Protein (PEP) 5.1L, Protein Electrophoresis Pathologist SEE PATH REPORT, Vitamin B12 Level 364, Folate 6.7 10/13/21 14:39: Glucometer 86 10/13/21 14:41: Glucometer 81 10/13/21 15:59: Glucometer 91 10/13/21 20:59: Glucometer 99 10/14/21 04:30: White Blood Count 6.8, Red Blood Count 2.84L, Hemoglobin 7.9L, Hematocrit 25L, Mean Corpuscular Volume 88, Mean Corpuscular Hemoglobin 28, Mean Corpuscular Hemoglobin Concent 32, Red Cell Distribution Width 17.0H, Platelet Count 256, Mean Platelet Volume 10.6, Immature Granulocyte % (Auto) 0, Neutrophils (%) (Auto) 54, Lymphocytes (%) (Auto) 38, Monocytes (%) (Auto) 6, Eosinophils (%) (Auto) 1, Basophils (%) (Auto) 1, Neutrophils # (Auto) 3.7, Lymphocytes # (Auto) 2.6, Monocytes # (Auto) 0.4, Eosinophils # (Auto) 0.1, Basophils # (Auto) 0.0, I mmature Granulocyte # (Auto) 0.0, Neutrophils % (Manual) 56, Lymphocytes % (Manual) 38, Monocytes % (Manual) 5, Band Neutrophils 1, Percent Immature Platelet Fraction 2.3, [place] Cells SLIGHT, Absolute Reticulocyte Count 43, Percent Reticulocyte Count 1.53, Sodium Level 133L, Potassium Level 4.4, Chloride Level 104, Carbon Dioxide Level 18L, Anion Gap 11, Blood Urea Nitrogen 22H, Creatinine 1.21, Estimat Glomerular Filtration Rate 45, BUN/Creatinine Ratio 18, Glucose Level 253H, Calcium Level 7.7L 10/14/21 05:55: Glucometer 244H 10/14/21 11:05: Glucometer 300H Assessment/Plan Assessment/Plan Admission Dx L2 Compression fracture Admission Status: Inpatient Order (span 2 midnights) Reason for Inpatient Admission: L2 compression fracture Uncontrolled type 2 diabetes (1) Compression fracture of L2 Status: Acute Assessment & Plan: CT spine on arrival with lytic lesion at L2 with compression fracture and follow up MRI with marrow replacing lesion present. This is presumably malignant, suspected hematologic vs. GI, with workup thus far notable for elevated CEA and CA-125. -SPEP, peripheral smear pending -Oncology consulted for assistance with work-up -Adjust pain regimen to oxycodone ER 30 mg Q12H with 4 mg morphine Q2H PRN Qualifiers: Qualified Codes: S32.020A - Wedge compression fracture of second lumbar vertebra, initial encounter for closed fracture (2) Uncontrolled insulin dependent diabetes mellitus Status: Acute Assessment & Plan: History of IDDM presented with BGL near 600 requiring brief insulin drip, now transitioned to basal-bolus regimen with subsequent hypogylcemia 10/13 requiring dextrose infusion overnight. Glucose now elevated to 300 after stopping dextrose infusion, will resume 15U levemir with sliding scale insulin. -15U levemir now - ACHS (3) Fever Assessment & Plan: Fever to 38C x2 in prior 48 hours without clear infectious source and no white count. CRP moderately elevated. Suspect underlying malignancy may be contributing rather than infectious etiology. Qualifiers: Qualified Codes: R50.9 - Fever, unspecified (4) HTN (hypertension) Status: Chronic Assessment & Plan: SBO up to 150 overnight on amlodipine 10 mg, lisinopril 20 mg, metoprolol 100 mg daily. -If persistent, will change metoprolol to carvedilol Qualifiers: Qualified Codes: I10 - Essential (primary) hypertension (5) Iron deficiency anemia due to chronic blood loss Status: Acute Assessment & Plan: Hemoglobin 7.9 from 9 on 10/12 with iron studies consistent with both iron deficiency and anemia of chronic disease. -Start venofer 200 mg Q48H (6) Restless leg syndrome Status: Acute Assessment & Plan: Continue home ropinirole and will give venofer for iron deficiency. Clinical Quality Measures Smoking Cessation Counseling: Counseling-Symptomatic: 3-10 Minutes TABATHA COVARRUBIAS MD 10/14/21 1541: Supervisory-Addendum Brief Supervisory Addendum I personally have seen and evaluated the patient and agree with assessment and plan as documented by PGY3 Higinio Marie MD. ORALIA MARIE MD Oct 14, 2021 13:45 TABATHA COVARRUBIAS MD Oct 14, 2021 15:41
[2021-10-14] MEDS ORDERED: ONDANSETRON 4 MG/2 ML (SDV) Z0FRAN IV PRN (14:15)
[2021-10-14] MEDS ORDERED: diphenhydrAMINE 50 MG/ML INJ (BENADRYL) IV PRN (14:15)
[2021-10-14] MEDS ORDERED: NALOXONE 0.4 MG/ML 1 ML (NARCAN) VIAL IV PRN (14:15)
[2021-10-14] MEDS: NS IV 1000 ML 1,000 ML IV SCH (15:41)
[2021-10-14] MEDS: IRON SUCROSE 200 MG/10 ML (VENOFER) VIAL IV SCH (15:41)
[2021-10-14] MEDS: morphine PCA 100 MG/100 ML BAG IV PRN (15:55)
[2021-10-14] MEDS ORDERED: oxyCODONE ER 15 MG (oxyCONTIN CR) TAB PO SCH (21:00)
[2021-10-14] MEDS: rOPINIRole 0.25 MG (REQUIP) TAB PO SCH (22:12)
[2021-10-15 03:55] VITALS: BP 130/65
[2021-10-15] MEDS: inSUlin ASPART (NovoLOG) 1 UNIT/0.01 ML (CHARGE PER UNIT) SC SCH ×4 (06:27→22:03)
[2021-10-15] MEDS: SUCRALFATE 1 GM (CARAFATE) TAB PO SCH ×4 (06:27→20:23)
[2021-10-15] MEDS: PANTOPRAZOLE 40 MG (PROTONIX) TAB PO SCH ×2 (06:27→16:00)
[2021-10-15 07:32] VITALS: BP 158/72
[2021-10-15 08:19] LABS: HEMATOCRIT 25 % (35-52); HEMOGLOBIN 7.8 g/dL (11.5-16.0); MEAN CORPUSCULAR HEMOGLOBIN 28 pg (25-34); MEAN CORPUSCULAR HGB CONC 32 g/dL (32-36); MEAN CORPUSCULAR VOLUME 88 fL (80-99); MEAN PLATELET VOLUME 10.1 fL (9.0-12.2); PLATELET COUNT 267 10^3/uL (130-400); WHITE BLOOD COUNT 8.1 10^3/uL (4.3-11.0)
[2021-10-15 08:30] LABS: POTASSIUM 4.5 MMOL/L (3.6-5.0)
[2021-10-15 08:32] LABS: CALCIUM 8.1 MG/DL (8.5-10.1)
[2021-10-15 08:36] LABS: CREATININE SERUM 1.14 MG/DL (0.60-1.30)
[2021-10-15] MEDS ORDERED: D5 LR IV SOLUTION 1,000 ML IV SCH (09:00)
[2021-10-15] MEDS ORDERED: DEXTROSE 50% 50 ML (IMS) SYR ONE (09:00)
[2021-10-15] MEDS ORDERED: D5 LR IV SOLUTION 1,000 ML IV ONE (09:10)
[2021-10-15] MEDS: ENOXAPARIN 40 MG/0.4 ML (LOVENOX) SYR SC SCH (09:13)
[2021-10-15] MEDS: polyethylene glycoL POWDER 17 GM (MIRALAX) PACK PO SCH ×2 (09:14→20:22)
[2021-10-15] MEDS: SENNA W/DOCUSATE (SENOKOT S) TABLET PO SCH (09:14)
[2021-10-15] MEDS: meTOprolol SUCCINATE 100 MG (TOPROL XL) TAB PO SCH (09:14)
[2021-10-15] MEDS: amLODIPine 10 MG (NORVASC) TAB PO SCH (09:14)
[2021-10-15] MEDS: lisINopril 20 MG (PRINIVIL) TABLET PO SCH (09:14)
[2021-10-15] MEDS: GABAPENTIN 400 MG (NEURONTIN) CAP PO SCH ×2 (09:14→20:23)
[2021-10-15] MEDS ORDERED: DEXTROSE 50% 50 ML (IMS) SYR IV ONE (09:15)
--- NOTE | 2021-10-15 11:15 | Progress Note ---
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 She denies any new chest pain, SOB, or abdominal symptoms. Focused Exam Time of Focused Exam: 06:55 Objective Exam Last Set of Vital Signs Vital Signs Date Time Temp Pulse Resp B/P (MAP) Pulse Ox O2 Delivery O2 Flow Rate FiO2 10/15/21 08:00 95 Room Air 10/15/21 07:32 36.3 71 22 158/72 (100) 10/13/21 19:29 4.00 Capillary Refill : Less Than 3 Seconds I&O Intake and Output 10/15/21 00:00 Intake Total 1950 ml Output Total 1275 ml Balance 675 ml Intake Oral 1950 ml Output Urine Total 1275 ml # Voids 3 # Bowel Movements 3 # Emes[place] 1 General: Alert, Oriented X3, Cooperative, Mild Distress HEENT: Atraumatic Neck: Supple, No JVD Lungs: Clear to Auscultation, Normal Air Movement Heart: Regular Rate, Normal S1, Normal S2, No Murmurs Abdomen: Normal Bowel Sounds, Soft Extremities: No Clubbing Skin: No Rashes Psych/Mental Status: Mental Status NL Results/Procedures Lab Laboratory Tests 10/14/21 16:51: Glucometer 310H 10/14/21 20:37: Glucometer 221H 10/15/21 05:01: Glucometer 128H 10/15/21 08:00: White Blood Count 8.1, Red Blood Count 2.80L, Hemoglobin 7.8L, Hematocrit 25L, Mean Corpuscular Volume 88, Mean Corpuscular Hemoglobin 28, Mean Corpuscular Hemoglobin Concent 32, Red Cell Distribution Width 16.5H, Platelet Count 267, Mean Platelet Volume 10.1, Sodium Level 136, Potassium Level 4.5, Chloride Level 106, Carbon Dioxide Level 23, Anion Gap 7, Blood Urea Nitrogen 28H, Creatinine 1.14, Estimat Glomerular Filtration Rate 48, BUN/Creatinine Ratio 25, Glucose Level 44*L, Calcium Level 8.1L 10/15/21 08:59: Glucometer 38*L 10/15/21 09:22: Glucometer 97 Assessment/Plan Assessment/Plan Admission Dx L2 Compression fracture Admission Status: Inpatient Order (span 2 midnights) (1) Compression fracture of L2 Status: Acute Assessment & Plan: CT spine on arrival with lytic lesion at L2 with compression fracture and follow up MRI with marrow replacing lesion present. This is presumably malignant, suspected hematologic vs. GI, with workup thus far notable for elevated CEA and CA-125. Not up to date on mammography or lung cancer screening. Will need biopsy for diagnosis. -SPEP pending -Morphine ANIMAL SHELTER MANAGER for pain control, will transition back to PO tomorrow after calculating TDD -Working to schedule biopsy/kyphoplasty early next week Qualifiers: Qualified Codes: S32.020A - Wedge compression fracture of second lumbar v ertebra, initial encounter for closed fracture (2) Uncontrolled insulin dependent diabetes mellitus Status: Acute Assessment & Plan: History of IDDM presented with BGL near 600 requiring brief insulin drip, now transitioned to basal-bolus regimen with subsequent hypogylcemia 10/13 & 10/14 requiring dextrose infusion. -D5LR at 75 mL/hr -Resume levemire 15u nightly once glucose stabilizes (3) Fever Assessment & Plan: Fever to 38C x2 10/13-10/14without clear infectious source and no white count. CRP moderately elevated. Suspect underlying malignancy may be contributing rather than infectious etiology. Afebrile overnight. Qualifiers: Qualified Codes: R50.9 - Fever, unspecified (4) HTN (hypertension) Status: Chronic Assessment & Plan: SBO up to 150 overnight on amlodipine 10 mg, lisinopril 20 mg, metoprolol 100 mg daily. -Will adjust regimen if rising SBP Qualifiers: Qualified Codes: I10 - Essential (primary) hypertension (5) Iron deficiency anemia due to chronic blood loss Status: Acute Assessment & Plan: Hemoglobin at 7 - 8 with iron studies consistent with both iron deficiency and anemia of chronic disease. -Continue venofer 200 mg Q48H (6) Restless leg syndrome Status: Acute Assessment & Plan: Continue home ropinirole and will give venofer for iron deficiency. Clinical Quality Measures Smoking Cessation Counseling: Counseling-Symptomatic: 3-10 Minutes TABATHA COVARRUBIAS MD 10/15/21 1250: Supervisory-Addendum Brief Supervisory Addendum I personally saw and evaluated patient, agree with documentation and assessment and plan documented by PGY3 Higinio Marie MD. ORALIA MARIE MD Oct 15, 2021 11:15 TABATHA COVARRUBIAS MD Oct 15, 2021 12:50
[2021-10-15 11:37] VITALS: BP 162/70
--- NOTE | 2021-10-15 15:29 | Physical Therapy Evaluation ---
PT Evaluation-General Medical Diagnosis Admission Date Oct 11, 2021 at 02:00 Medical Diagnosis: L2 Compression Fracture Onset Date: Oct 13, 2021 Therapy Diagnosis Therapy Diagnosis: Gait deficit, strength deficit Height/Weight Height (Feet): 5 Height (Inches): 1.00 Weight (Pounds): 122 Weight (Ounces): 1.0 Precautions Precautions/Isolations: Fall Prevention, Standard Precautions Referral Physician: Dr. Dillon Marquez Reason for Referral: Evaluation/Treatment Medical History Pertinent Medical History: Alcoholism, CAD, DM, GERD, HTN, Neuropathy, Renal Insufficiency, Smoking Social History Home: Single Level Current Living Status: Alone PT Steps Into Home: 1 Prior Prior Level of Function SCALE: Activities may be completed with or without assistive devices. 4-Ahpbcufeej-mowuuzu completes the activity by him/herself with no assistance from a helper. 5-Set-up or Clean-up Assistance-helper sets up or cleans up; patient completes activity. [place] assists only prior to or following the activity. 4-Supervision or Touching Assistance-helper provides verbal cues and/or touching/steadying and/or contact guard assistance as patient completes activity. Assistance may be provided throughout the activity or intermittently. 3-Partial/Moderate Assistance-helper does LESS THAN HALF the effort. [place] lifts, holds or supports trunk or limbs, but provides less than half the effort. 2-Substantial/Maximal Assistance-helper does MORE THAN HALF the effort. [place] lifts or holds trunk or limbs and provides more than half the effort. 0-Scxdetoey-jiwawe does ALL the effort. Patient does none of the effort to complete the activity. Or, the assistance of 2 or more helpers is required for the patient to complete the activity. If activity was not attempted, code reason: 7-Patient Refused. 9-Not Applicable-not attempted and the patient did not perform the activity before the current illness, exacerbation or injury. 10-Not Attempted due to Environmental Limitations-(lack of equipment, weather restraints, etc.). 88-Not Attempted due to Medical Conditions or Safety Concerns. Bed Mobility: 6 Transfers (B,C,W/C): 6 Gait: 6 Stairs: 6 Indoor Mobility (Ambulation): Independent Stairs: Independent Patient was only minimally cooperative with PT evaluation. She attempted to answer some questions, however when she did, mumbled or gave nonsensical answers. Other questions she ignored completely. PT Evaluation-Current Subjective Patient able to rate her LBP at 10/10, and constantly states "I can't do it, don't make me do it." Objective Patient Orientation: Person ROM/Strength ROM Lower Extremities Unable to assess accurately as patient does not fully participate, however appears WFLs bilaterally. Strength Lower Extremities Patient unable to follow commands for MMT. Sensory Vision: Functional Hearing: Functional Sensation Right Lower Extremit: Intact Sensation Left Lower Extremity: Intact Transfers Roll Left to Right (QC): 2 Sit to Lying (QC): 2 Lying to Sitting/Side of Bed(Q: 2 Sit to Stand (QC): 3 Chair/Prc-cx-Pmwjp Xfer(QC): 4 Gait Does the Patient Walk?: Yes Mode of Locomotion: Walk Anticipated Mode of Locomotion: Walk Distance: 4 feet Gait Assistive Device: None Wheelchair Training Does the Pt Use a Wheelchair?: No Balance Sitting Static: Poor Sitting Dynamic: Poor Standing Static: Fair Standing Dynamic: Fair Assessment/Needs Patient tolerated treatment well, however resisted the entire time. She required max A for all bed mobility, however upon sitting at edge of bed was able to stand with min A and transferred to the chair with CGA. Patient reports pain throughout the treatment session, however regularly falls back to sleep during subjective questioning and after being transferred to the chair. Patient asleep upon PT departure with call light in hand, all needs met, nursing notified. Patient is able to do more than she is willing to put forth the effort to do, however given her current presentation, she is not safe to return home and should be considered for SNF due to her limited ability to participate. Rehab Potential: Guarded Equipment Needs Unsure at this time as patient was unable to provide list of current devices at home. PT Short Term Goals Short Term Goals Time Frame: Oct 29, 2021 Roll Left & Right: 4 Sit to lyin Lying to sitting on side of be: 4 Sit to stand: 5 Chair/whn-zb-uxfns transfer: 6 Toilet transfer: 6 Walk 10 feet: 5 Walk 50 feet with two turns: 5 Walk 150 feet: 5 PT Detention Goals Tube Carrier Goals PT Detention Goals Time Frame: Nov 21, 2021 Roll Left & Right (QC): 6 Sit to Lying (QC): 6 Lying-Sitting on Side/Bed(QC): 6 Sit to Stand (QC): 6 Chair/Ter-oh-Cyugm Xfer(QC): 6 Toilet Transfer (QC): 6 Does the Patient Walk: Yes Walk 10 feet (QC): 6 Walk 50ft with 2 Turns (QC): 6 Walk 150 ft (QC): 6 1 Step (curb) (QC): 4 4 Steps (QC): 4 12 Steps (QC): 4 Picking up an Object (QC): 4 Does the Pt use WC or Scooter?: No PT Plan Problem List Problem List: Activity Tolerance, Functional Strength, Safety, Balance, Gait, Transfer, Bed Mobility, ROM Treatment/Plan Treatment Plan: Continue Plan of Care Treatment Plan: Bed Mobility, Education, Functional Activity Yue, Functional Strength, Gait, Safety, Therapeutic Exercise, Transfers Treatment Duration: Nov 21, 2021 Frequency: 5 times per week Estimated Hrs Per Day: .25 hour per day Patient and/or Family Agrees t: Yes Safety Risks/Education Patient Education: Gait Training, Transfer Techniques, Safety Issues Teaching Recipient: Patient Teaching Methods: Demonstration, Discussion Response to Teaching: Reinforcement Needed Discharge Recommendations Target Placement Post acute placement recommended Time/GCodes Time In: 1412 Time Out: 1432 Total Billed Treatment Time: 20 Total Billed Treatment Visit, YOBANI Castro PT Oct 15, 2021 15:29
[2021-10-15 15:47] VITALS: BP 164/65
[2021-10-15 19:24] VITALS: BP 148/65
[2021-10-15] MEDS: rOPINIRole 0.25 MG (REQUIP) TAB PO SCH (20:23)
[2021-10-15] MEDS: NS IV 1000 ML 1,000 ML IV SCH (22:22)
[2021-10-15] MEDS: morphine PCA 100 MG/100 ML BAG IV PRN (22:25)
[2021-10-15 23:41] VITALS: BP 110/57
[2021-10-16 03:23] VITALS: BP 118/60
[2021-10-16] MEDS: inSUlin ASPART (NovoLOG) 1 UNIT/0.01 ML (CHARGE PER UNIT) SC SCH ×4 (05:56→21:51)
[2021-10-16] MEDS: SUCRALFATE 1 GM (CARAFATE) TAB PO SCH ×4 (05:56→21:49)
[2021-10-16] MEDS: PANTOPRAZOLE 40 MG (PROTONIX) TAB PO SCH ×2 (05:56→17:08)
[2021-10-16 06:51] LABS: HEMATOCRIT 23 % (35-52); MEAN CORPUSCULAR HEMOGLOBIN 28 pg (25-34); MEAN CORPUSCULAR HGB CONC 31 g/dL (32-36); MEAN CORPUSCULAR VOLUME 89 fL (80-99); MEAN PLATELET VOLUME 10.4 fL (9.0-12.2); PLATELET COUNT 281 10^3/uL (130-400); WHITE BLOOD COUNT 6.6 10^3/uL (4.3-11.0)
[2021-10-16 06:59] LABS: POTASSIUM 4.7 MMOL/L (3.6-5.0)
[2021-10-16 07:00] LABS: CALCIUM 7.9 MG/DL (8.5-10.1)
[2021-10-16 07:05] LABS: CREATININE SERUM 1.26 MG/DL (0.60-1.30)
[2021-10-16 07:29] VITALS: BP 156/78
--- NOTE | 2021-10-16 09:26 | Physical Therapy Daily Note ---
PT Daily Note-Current Subjective Patient agrees to PT after much encouragement. 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 9-Tsawvizshu-pprpdnz completes the activity by him/herself with no assistance from a helper. 5-Set-up or Clean-up Assistance-helper sets up or cleans up; patient completes activity. [place] assists only prior to or following the activity. 4-Supervision or Touching Assistance-helper provides verbal cues and/or touching/steadying and/or contact guard assistance as patient completes activity. Assistance may be provided throughout the activity or intermittently. 3-Partial/Moderate Assistance-helper does LESS THAN HALF the effort. [place] lifts, holds or supports trunk or limbs, but provides less than half the effort. 2-Substantial/Maximal Assistance-helper does MORE THAN HALF the effort. [place] lifts or holds trunk or limbs and provides more than half the effort. 9-Adydhzofg-lspuyz does ALL the effort. Patient does none of the effort to complete the activity. Or, the assistance of 2 or more helpers is required for the patient to complete the activity. If activity was not attempted, code reason: 7-Patient Refused. 9-Not Applicable-not attempted and the patient did not perform the activity before the current illness, exacerbation or injury. 10-Not Attempted due to Environmental Limitations-(lack of equipment, weather restraints, etc.). 88-Not Attempted due to Medical Conditions or Safety Concerns. Lying to Sitting/Side of Bed(Q: 3 Sit to Stand (QC): 3 Chair/Ams-vs-Hghmd Xfer(QC): 3 Toilet Transfer (QC): 3 assisted patient with toileting Gait Training Does the Patient Walk?: Yes Distance: 20' Walk 10 feet (QC): 3 Gait Assistive Device: FWW very, very slow gait sequence with multiple standing recovery periods due to c/o pain. Exercises Seated Therapy Exercises: Ankle pumps, Long arc quads Seated Reps: 12 Assessment Patient requires time to complete all functional tasks. Patient up in recliner with call light, phone and BUILDING CONSTRUCTION CONTRACTOR button in hand. Increase activity as tolerated by patient. PT Short Term Goals Short Term Goals Time Frame: Oct 29, 2021 Roll Left & Right: 4 Sit to lyin Lying to sitting on side of be: 4 Sit to stand: 5 Chair/pvl-je-tfdtd transfer: 6 Toilet transfer: 6 Walk 10 feet: 5 Walk 50 feet with two turns: 5 Walk 150 feet: 5 PT Group Home Goals Social Worker Palliative Care Goals PT Social Worker Palliative Care Goals Time Frame: Nov 21, 2021 Roll Left & Right (QC): 6 Sit to Lying (QC): 6 Lying-Sitting on Side/Bed(QC): 6 Sit to Stand (QC): 6 Chair/Tqr-od-Pqhix Xfer(QC): 6 Toilet Transfer (QC): 6 Does the Patient Walk: Yes Walk 10 feet (QC): 6 Walk 50ft with 2 Turns (QC): 6 Walk 150 ft (QC): 6 1 Step (curb) (QC): 4 4 Steps (QC): 4 12 Steps (QC): 4 Picking up an Object (QC): 4 Does the Pt use WC or Scooter?: No PT Plan Treatment/Plan Treatment Plan: Continue Plan of Care Treatment Plan: Bed Mobility, Education, Functional Activity Yue, Functional Strength, Gait, Safety, Therapeutic Exercise, Transfers Treatment Duration: Nov 21, 2021 Frequency: 5 times per week Estimated Hrs Per Day: .25 hour per day Patient and/or Family Agrees t: Yes Time/GCodes Time In: 850 Time Out: 913 Total Billed Treatment Time: 23 Total Billed Treatment 1 visit FA x 2 23 min KELVIN CALVO PT Oct 16, 2021 09:26
[2021-10-16] MEDS: IRON SUCROSE 200 MG/10 ML (VENOFER) VIAL IV SCH (09:32)
[2021-10-16] MEDS: polyethylene glycoL POWDER 17 GM (MIRALAX) PACK PO SCH ×2 (09:38→21:51)
[2021-10-16] MEDS: lisINopril 20 MG (PRINIVIL) TABLET PO SCH (09:39)
[2021-10-16] MEDS: amLODIPine 10 MG (NORVASC) TAB PO SCH (09:39)
[2021-10-16] MEDS: GABAPENTIN 400 MG (NEURONTIN) CAP PO SCH ×2 (09:39→21:48)
[2021-10-16] MEDS: meTOprolol SUCCINATE 100 MG (TOPROL XL) TAB PO SCH (09:39)
[2021-10-16] MEDS: SENNA W/DOCUSATE (SENOKOT S) TABLET PO SCH (09:39)
[2021-10-16] MEDS: ENOXAPARIN 40 MG/0.4 ML (LOVENOX) SYR SC SCH (09:40)
[2021-10-16] MEDS ORDERED: MAGNESIUM CITRATE 300 ML BTL PO ONE (10:30)
--- NOTE | 2021-10-16 11:22 | Progress Note ---
ORALIA MARIE MD 10/16/21 1122: Subjective Subjective/Events-last exam Patient received 70 mg IV morphine in the prior 24 hours via BREAST TRIMMER and reports today that pain is improved, but she has not had a BM in previous 24 hours. Denies new CP, SOB, abdominal pain. Focused Exam Time of Focused Exam: 06:55 Objective Exam Last Set of Vital Signs Vital Signs Date Time Temp Pulse Resp B/P (MAP) Pulse Ox O2 Delivery O2 Flow Rate FiO2 10/16/21 07:55 95 Room Air 10/16/21 07:37 17 10/16/21 07:29 36.9 62 156/78 (104) 10/13/21 19:29 4.00 Capillary Refill : Less Than 3 Seconds I&O Intake and Output 10/15/21 23:59 Intake Total 1160 ml Output Total 1100 ml Balance 60 ml Intake Oral 1160 ml Output Urine Total 1100 ml # Voids 3 # Emes[place] 1 General: Alert, Oriented X3 HEENT: Atraumatic, PERRLA, Other (Poor dentition) Neck: Supple Lungs: Clear to Auscultation, Normal Air Movement Heart: Regular Rate, Normal S1, Normal S2, No Murmurs Abdomen: Normal Bowel Sounds Skin: No Rashes Neuro: Normal Speech Psych/Mental Status: Mental Status NL Results/Procedures Lab Laboratory Tests 10/15/21 11:46: Glucometer 166H 10/15/21 15:41: Glucometer 174H 10/15/21 20:48: Glucometer 345H 10/16/21 03:03: Glucometer 206H 10/16/21 05:50: Glucometer 257H 10/16/21 06:30: White Blood Count 6.6, Red Blood Count 2.53L, Hemoglobin 7.0L, Hematocrit 23L, Mean Corpuscular Volume 89, Mean Corpuscular Hemoglobin 28, Mean Corpuscular Hemoglobin Concent 31L, Red Cell Distribution Width 16.6H, Platelet Count 281, Mean Platelet Volume 10.4, Sodium Level 134L, Potassium Level 4.7, Chloride Level 106, Carbon Dioxide Level 21, Anion Gap 7, Blood Urea Nitrogen 26H, Creatinine 1.26, Estimat Glomerular Filtration Rate 43, BUN/Creatinine Ratio 21, Glucose Level 261H, Calcium Level 7.9L 10/16/21 10:20: Glucometer 204H Assessment/Plan Assessment/Plan (1) Compression fracture of L2 Status: Acute Assessment & Plan: CT spine on arrival with lytic lesion at L2 with compression fracture and follow up MRI with marrow replacing lesion present. This is presumably malignant, suspected hematologic vs. GI, with workup thus far notable for elevated CEA and CA-125. Not up to date on mammography or lung cancer screening. Will need biopsy for diagnosis, planning for CT guided biopsy via IR in [place] either 09/22 or 09/24 pending insurance prior authorization. This is currently planned to be completed as an outpatient. Received 70 mg IV morphine in prior 24 hours, will transition to PO today -Pain regimen: DC BREAST TRIMMER, Start morphine ER 75 mg BID with morphine IR 10 mg Q6H PRN -Bowel regimen: Senokot, Miralax, mag citrate x 1 today -Working to schedule biopsy/kyphoplasty early next week Qualifiers: Qualified Codes: S32.020A - Wedge compression fracture of second lumbar vertebra, initial encounter for closed fracture (2) Uncontrolled insulin dependent diabetes mellitus Status: Acute Assessment & Plan: History of IDDM presented with BGL near 600 requiring brief insulin drip, now transitioned to basal-bolus regimen with subsequent hypogylc emia 10/13 & 10/14 requiring dextrose infusion. Now hyperglycemic off of dextrose infusion. -Resume levemire 15u x 1 today, will schedule daily tomorrow (3) Fever Assessment & Plan: Fever to 38C x2 10/13-10/14without clear infectious source and no white count. CRP moderately elevated. Suspect underlying malignancy may be contributing rather than infectious etiology. Afebrile overnight. Qualifiers: Qualified Codes: R50.9 - Fever, unspecified (4) HTN (hypertension) Status: Chronic Assessment & Plan: Controlled on amlodipine 10 mg, lisinopril 20 mg, metoprolol 100 mg daily. Qualifiers: Qualified Codes: I10 - Essential (primary) hypertension (5) Iron deficiency anemia due to chronic blood loss Status: Acute Assessment & Plan: Hemoglobin at 7 - 8 with iron studies consistent with both iron deficiency and anemia of chronic disease. -Continue venofer 200 mg Q48H -Transfuse <7 (6) Restless leg syndrome Status: Acute Assessment & Plan: Continue home ropinirole and will give venofer for iron deficiency. Clinical Quality Measures Smoking Cessation Counseling: Counseling-Symptomatic: 3-10 Minutes TABATHA COVARRUBIAS MD 10/16/21 1126: Supervisory-Addendum Brief Supervisory Addendum I personally have seen and evaluated the patient and agree with assessment and plan documented by PGY3 Higinio Marie MD. She is on an excessively large amount of morphine equivalent, however, she was already on high morphine equiva lent per day at home prior to admission that was being prescribed by pain management. (oxycodone 20 mg every 4 hours, equaling a 24 hour total of up to 120 mg daily which is approximately equivalent to 180 mg oral morphine). She is not able to be prescribed opiates through [facility] due to prior contract violation, so she will have to follow up with pain management as soon as possible after d/c, would recommend working on tapering as soon as kyphoplasty is done. ORALIA MARIE MD Oct 16, 2021 11:22 TABATHA COVARRUBIAS MD Oct 16, 2021 11:26
[2021-10-16 11:40] VITALS: BP 177/77
[2021-10-16] MEDS ORDERED: morphine ER 30 MG (MS CONTIN) TAB PO SCH ×2 (12:00→21:00)
[2021-10-16] MEDS: morphine ER 30 MG (MS CONTIN) TAB PO SCH (13:38)
[2021-10-16 16:36] VITALS: BP 179/78
[2021-10-16] MEDS: morphine IMMEDIATE RELEASE 15 MG TABLET PO PRN (19:07)
[2021-10-16 20:06] VITALS: BP 160/74
[2021-10-16] MEDS ORDERED: DEXTROSE 50% 50 ML (IMS) SYR ONE (21:02)
[2021-10-16] MEDS: rOPINIRole 0.25 MG (REQUIP) TAB PO SCH (21:48)
[2021-10-16] MEDS ORDERED: DEXTROSE 50% 50 ML (IMS) SYR IV PRN (22:15)
[2021-10-16] MEDS: DEXTROSE 50% 50 ML (IMS) SYR IV PRN (23:38)
[2021-10-17 00:20] VITALS: BP 150/76
[2021-10-17] MEDS: morphine ER 30 MG (MS CONTIN) TAB PO SCH ×2 (01:49→14:12)
[2021-10-17 02:58] VITALS: BP 148/72
[2021-10-17 04:44] LABS: HEMATOCRIT 22 % (35-52); MEAN CORPUSCULAR HEMOGLOBIN 28 pg (25-34); MEAN CORPUSCULAR HGB CONC 31 g/dL (32-36); MEAN CORPUSCULAR VOLUME 88 fL (80-99); MEAN PLATELET VOLUME 9.7 fL (9.0-12.2); PLATELET COUNT 301 10^3/uL (130-400); WHITE BLOOD COUNT 7.6 10^3/uL (4.3-11.0)
[2021-10-17] MEDS: inSUlin ASPART (NovoLOG) 1 UNIT/0.01 ML (CHARGE PER UNIT) SC SCH ×4 (04:59→21:22)
[2021-10-17 05:01] LABS: POTASSIUM 4.6 MMOL/L (3.6-5.0)
[2021-10-17 05:02] LABS: CALCIUM 8.2 MG/DL (8.5-10.1)
[2021-10-17 05:06] LABS: CREATININE SERUM 0.96 MG/DL (0.60-1.30)
[2021-10-17] MEDS: SUCRALFATE 1 GM (CARAFATE) TAB PO SCH ×4 (06:28→20:06)
[2021-10-17] MEDS: PANTOPRAZOLE 40 MG (PROTONIX) TAB PO SCH ×2 (06:28→17:16)
[2021-10-17 08:00] VITALS: BP 147/77
[2021-10-17] MEDS: SENNA W/DOCUSATE (SENOKOT S) TABLET PO SCH (09:07)
[2021-10-17] MEDS: lisINopril 20 MG (PRINIVIL) TABLET PO SCH (09:07)
[2021-10-17] MEDS: GABAPENTIN 400 MG (NEURONTIN) CAP PO SCH ×2 (09:07→20:07)
[2021-10-17] MEDS: polyethylene glycoL POWDER 17 GM (MIRALAX) PACK PO SCH ×2 (09:07→20:07)
[2021-10-17] MEDS: amLODIPine 10 MG (NORVASC) TAB PO SCH (09:09)
[2021-10-17] MEDS: morphine IMMEDIATE RELEASE 15 MG TABLET PO PRN ×3 (09:09→20:09)
[2021-10-17] MEDS: meTOprolol SUCCINATE 100 MG (TOPROL XL) TAB PO SCH (09:09)
[2021-10-17] MEDS: ENOXAPARIN 40 MG/0.4 ML (LOVENOX) SYR SC SCH (09:10)
--- NOTE | 2021-10-17 11:39 | Progress Note ---
ORALIA MARIE MD 10/17/21 1139: Subjective Subjective/Events-last exam Patient was given 75 mg morphine ER yesterday and 10 mg IR last PM. Overnight, decreased responsivity and noted to have depressed respirations, subsequent morphine dose held. She reports severe pain and spasms this AM. She did have a BM yesterday. No new CP, SOB, abdominal pain. Focused Exam Time of Focused Exam: 06:55 Objective Exam Last Set of Vital Signs Vital Signs Date Time Temp Pulse Resp B/P (MAP) Pulse Ox O2 Delivery O2 Flow Rate FiO2 10/17/21 08:14 95 Room Air 10/17/21 08:00 36.4 67 20 147/77 (100) 10/13/21 19:29 4.00 Capillary Refill : Less Than 3 Seconds I&O Intake and Output 10/17/21 00:00 Intake Total 1840 ml Output Total 500 ml Balance 1340 ml Intake Oral 1840 ml Output Urine Total 500 ml # Voids 7 # Bowel Movements 3 General: Alert, Oriented X3, Mild Distress HEENT: Atraumatic Lungs: Clear to Auscultation, Normal Air Movement Heart: Regular Rate, Normal S1, Normal S2 Abdomen: Normal Bowel Sounds Extremities: No Clubbing Skin: No Rashes Psych/Mental Status: Mental Status NL Results/Procedures Lab Laboratory Tests 10/16/21 15:49: Glucometer 172H 10/16/21 21:00: Glucometer 41*L 10/16/21 22:02: Glucometer 87 10/16/21 23:33: Glucometer 65L 10/17/21 00:13: Glucometer 109 10/17/21 01:02: Glucometer 96 10/17/21 01:48: Glucometer 92 10/17/21 02:55: Glucometer 91 10/17/21 04:30: Glucometer 115H 10/17/21 04:35: White Blood Count 7.6, Red Blood Count 2.50L, Hemoglobin 7.0L, Hematocrit 22L, Mean Corpuscular Volume 88, Mean Corpuscular Hemoglobin 28, Mean Corpuscular Hemoglobin Concent 31L, Red Cell Distribution Width 16.4H, Platelet Count 301, Mean Platelet Volume 9.7, Sodium Level 139, Potassium Level 4.6, Chloride Level 108H, Carbon Dioxide Level 23, Anion Gap 8, Blood Urea Nitrogen 24H, Creatinine 0.96, Estimat Glomerular Filtration Rate 59, BUN/Creatinine Ratio 25, Glucose Level 128H, Calcium Level 8.2L 10/17/21 06:26: Glucometer 154H Assessment/Plan Assessment/Plan (1) Compression fracture of L2 Status: Acute Assessment & Plan: CT spine on arrival with lytic lesion at L2 with compression fracture and follow up MRI with marrow replacing lesion present. This is presumably malignant, suspected hematologic vs. GI, with workup thus far notable for elevated CEA and CA-125. Not up to date on mammography or lung cancer screening. Will need biopsy for diagnosis, planning for CT guided biopsy via IR in [place] either 09/22 or 09/24 pending insurance prior authorization. -Working to schedule biopsy/kyphoplasty early next week -Patient needs DC'd >24 hours prior to this for it to be completted as an outpatient Qualifiers: Qualified Codes: S32.020A - Wedge compression fracture of second lumbar vertebra, initial encounter for closed fracture (2) Acute exacerbation of chronic low back pain Status: Acute Assessment & Plan: Secondary to #1. On high doses of outpatient oxycodone with difficult pain control in setting of fracture. Transitioned off of morpine PET SITTING yesterday to equivalent dose of 75 mg morphine ER with 10 mg morphine IR Q6H PRN, which she received x 1, then noted to be less responsive than usual overnight with that dose held. -Decrease to 60 mg morphine ER BID today -Continue 10 mg morphine IR Q6H PRN -Add robaxin 750 mg QID for spasms -Kyphoplasty next week -Needs to follow up with pain management outpatient given broken pain contracts with [facility] (3) Uncontrolled insulin dependent diabetes mellitus Status: Acute Assessment & Plan: History of IDDM presented with BGL near 600 requiring brief insulin drip, now transitioned to basal-bolus regimen with subsequent hypogylcemia 10/13 & 10/14 requiring dextrose infusion. Overnight, received D50 x 2 after receiving levemir 15 units last night with glucose stable without infusion this AM. -Levemir 10 U QHS -SSI 1 (4) Fever Assessment & Plan: Fever to 38C x2 10/13-10/14without clear infectious source and no white count. CRP moderately elevated. Suspect underlying malignancy may be contributing rather than infectious etiology. Afebrile overnight. Qualifiers: Qualified Codes: R50.9 - Fever, unspecified (5) HTN (hypertension) Status: Chronic Assessment & Plan: Controlled on amlodipine 10 mg, lisinopril 20 mg, metoprolol 100 mg daily. Qualifiers: Qualified Codes: I10 - Essential (primary) hypertension (6) Iron deficiency anemia due to chronic blood loss Status: Acute Assessment & Plan: Hemoglobin at 7 - 8 with iron studies consistent with both iron deficiency and anemia of chronic disease. -Continue venofer 200 mg Q48H -Transfuse <7 (7) Restless leg syndrome Status: Acute Assessment & Plan: Continue home ropinirole and will give venofer for iron deficiency. Clinical Quality Measures Smoking Cessation Counseling: Counseling-Symptomatic: 3-10 Minutes TABATHA COVARRUBIAS MD 10/17/212131: Supervisory-Addendum Brief Supervisory Addendum I personally have seen and evaluated the patient and I agree with the documented assessment and plan by PGY3 Higinio Marie MD. ORALIA MARIE MD Oct 17, 2021 11:39 TABATHA COVARRUBIAS MD Oct 17, 2021 21:32
[2021-10-17 12:00] VITALS: BP 155/74
--- NOTE | 2021-10-17 12:00 | Physical Therapy Daily Note ---
PT Daily Note-Current Subjective Pt in bed upon arrival and agrees to PT after much encouragement. Pain Numeric Pain Scale: 10-Worst Possible Pain Location: Lower Location Body Site: Back Mental Status Patient Orientation: Normal For Age Transfers SCALE: Activities may be completed with or without assistive devices. 5-Fgoghmvuct-hyrwqya completes the activity by him/herself with no assistance from a helper. 5-Set-up or Clean-up Assistance-helper sets up or cleans up; patient completes activity. [place] assists only prior to or following the activity. 4-Supervision or Touching Assistance-helper provides verbal cues and/or touching/steadying and/or contact guard assistance as patient completes activity. Assistance may be provided throughout the activity or intermittently. 3-Partial/Moderate Assistance-helper does LESS THAN HALF the effort. [place] lifts, holds or supports trunk or limbs, but provides less than half the effort. 2-Substantial/Maximal Assistance-helper does MORE THAN HALF the effort. [place] lifts or holds trunk or limbs and provides more than half the effort. 6-Ahkoqfkul-tvugwo does ALL the effort. Patient does none of the effort to complete the activity. Or, the assistance of 2 or more helpers is required for the patient to complete the activity. If activity was not attempted, code reason: 7-Patient Refused. 9-Not Applicable-not attempted and the patient did not perform the activity before the current illness, exacerbation or injury. 10-Not Attempted due to Environmental Limitations-(lack of equipment, weather restraints, etc.). 88-Not Attempted due to Medical Conditions or Safety Concerns. Roll Left & Right (QC): 3 Gait Training Does the Patient Walk?: No and Walking Goal IS indicated Exercises Supine Ex: Ankle pumps, Quad Set, Rolling, Glut sets, Heel Slides, Scooting, Straight leg raise, Hip abd/add Supine Reps: 15 Treatments Pt in bed upon arrival and very reluctant to PT but after encouragement that mov ement will be good for her back pain pt agrees. Pt performs all supine exs after therapist provided AAROM for first few reps then able to perform AROM. Then pt performs bed mobility. Pt c/o pain w/ exs. Assessment Current Status: Fair Progress PT attempts to get pt out of bed but pt declines so performs all supine exs. Pt requires constant verbal cues to perform exs and AAROM to start each new exercise. Pt able to perform bed mobility w/ Aishwarya/modA and encouragement. Call light nearby and all needs met as PT departs. PT Short Term Goals Short Term Goals Time Frame: Oct 29, 2021 Roll Left & Right: 4 Sit to lyin Lying to sitting on side of be: 4 Sit to stand: 5 Chair/wso-uf-hggqb transfer: 6 Toilet transfer: 6 Walk 10 feet: 5 Walk 50 feet with two turns: 5 Walk 150 feet: 5 PT [facility] Goals M[facility] Goals PT [place] Working Supervisor Goals Time Frame: Nov 21, 2021 Roll Left & Right (QC): 6 Sit to Lying (QC): 6 Lying-Sitting on Side/Bed(QC): 6 Sit to Stand (QC): 6 Chair/Bjm-ne-Tetdo Xfer(QC): 6 Toilet Transfer (QC): 6 Does the Patient Walk: Yes Walk 10 feet (QC): 6 Walk 50ft with 2 Turns (QC): 6 Walk 150 ft (QC): 6 1 Step (curb) (QC): 4 4 Steps (QC): 4 12 Steps (QC): 4 Picking up an Object (QC): 4 Does the Pt use WC or Scooter?: No PT Plan Problem List Problem List: Activity Tolerance, Functional Strength Treatment/Plan Treatment Plan: Continue Plan of Care Treatment Plan: Bed Mobility, Education, Functional Activity Yue, Functional Strength, Gait, Safety, Therapeutic Exercise, Transfers Treatment Duration: Nov 21, 2021 Frequency: 5 times per week Estimated Hrs Per Day: .25 hour per day Patient and/or Family Agrees t: Yes Safety Risks/Education Patient Education: Correct Positioning Teaching Recipient: Patient Teaching Methods: Discussion Response to Teaching: Return Demonstration Time/GCodes Time In: 1020 Time Out: 1043 Total Billed Treatment Time: 23 Total Billed Treatment 1 visit, EX (18'), FA (5') ED ABRAMS PTA Oct 17, 2021 12:00
[2021-10-17] MEDS: METHOCARBAMOL 750 MG (ROBAXIN) TAB PO SCH ×3 (13:23→20:06)
[2021-10-17 15:18] VITALS: BP 162/71
[2021-10-17 19:14] VITALS: BP 154/67
[2021-10-17] MEDS: rOPINIRole 0.25 MG (REQUIP) TAB PO SCH (20:06)
[2021-10-18] VITALS: BP 170/80
[2021-10-18] MEDS: morphine ER 30 MG (MS CONTIN) TAB PO SCH ×3 (01:17→21:04)
[2021-10-18 04:00] VITALS: BP 168/77
[2021-10-18] MEDS: PANTOPRAZOLE 40 MG (PROTONIX) TAB PO SCH ×2 (05:29→17:36)
[2021-10-18] MEDS: SUCRALFATE 1 GM (CARAFATE) TAB PO SCH ×4 (05:29→21:04)
[2021-10-18 05:42] LABS: HEMATOCRIT 24 % (35-52); HEMOGLOBIN 7.5 g/dL (11.5-16.0); MEAN CORPUSCULAR HEMOGLOBIN 28 pg (25-34); MEAN CORPUSCULAR HGB CONC 32 g/dL (32-36); MEAN CORPUSCULAR VOLUME 88 fL (80-99); MEAN PLATELET VOLUME 9.7 fL (9.0-12.2); PLATELET COUNT 400 10^3/uL (130-400); WHITE BLOOD COUNT 10.4 10^3/uL (4.3-11.0)
[2021-10-18] MEDS: morphine IMMEDIATE RELEASE 15 MG TABLET PO PRN ×4 (05:48→22:02)
[2021-10-18 05:57] LABS: POTASSIUM 3.9 MMOL/L (3.6-5.0)
[2021-10-18 05:58] LABS: CALCIUM 8.5 MG/DL (8.5-10.1)
[2021-10-18 06:02] LABS: CREATININE SERUM 0.95 MG/DL (0.60-1.30)
[2021-10-18] MEDS: inSUlin ASPART (NovoLOG) 1 UNIT/0.01 ML (CHARGE PER UNIT) SC SCH ×4 (06:41→21:10)
--- NOTE | 2021-10-18 06:48 | Progress Note - Hospitalist ---
Subjective HPI/CC On Admission Date Seen by Provider: Oct 18, 2021 Time Seen by Provider: 10:30 Chief complaint: Hyperglycemia with back pain History of present illness: This is a 61-year-old white female who has a history of DKA brittle diabetes who presents to the ER with complaints of abdominal pain back pain and weakness. She fell sustaining compression fractures on and is struggling with the pain ever since. She was found to have severe hyperglycemia of 600 but no DKA meeting criteria for insulin drip for non-DKA status. We will restart her home medication and pain medication. Subjective/Events-last exam Patient doing well Wants cough syrup Morphine 60 mg twice daily will be ordered Loose bowels noted Kyphoplasty on Wednesday and discharge on Wednesday Suspicious for bony metastasis of some sort biopsy will be revealing Review of Systems General: Fatigue Musculoskeletal: back pain Focused Exam Time of Focused Exam: 06:55 Objective Exam Vital Signs Vital Signs Date Time Temp Pulse Resp B/P (MAP) Pulse Ox O2 Delivery O2 Flow Rate FiO2 10/19/21 05:16 37.1 91 20 160/68 (98) 98 Room Air 10/13/21 19:29 4.00 Capillary Refill : Less Than 3 Seconds General Appearance: No Apparent Distress, WD/WN, Chronically ill, Thin Respiratory: Lungs Clear, Normal Breath Sounds Cardiovascular: Regular Rate, Rhythm Neurologic/Psychiatric: Alert, Oriented x3, No Motor/Sensory Deficits, Normal Mood/Affect Results/Procedures Lab Laboratory Tests 10/19/21 05:02 Patient resulted labs reviewed. Assessment/Plan Assessment and Plan Assess & Plan/Chief Complaint Assessment: Status post severe hyperglycemia nonketotic state requiring insulin drip 9 days ago Severe compression fractures with severe pain left kyphoplasty after bone biopsy and [place], [place] on Wednesday and will discharge on Wednesday MRI suspicious for cancer metastasis will obtain biopsy during kyphoplasty Diabetes brz-ry-dfblxhx noncompliant Current smoker GERD Chronic kidney disease Hypertension CAD Loose stools Cough Plan: Moved to the floor Monitor sugar Pain control 10/12/2021: Compression fracture management 10/18/2021: Morphine 60 mg twice daily Cough syrup Discharge on Wednesday Clinical Quality Measures Smoking Cessation Counseling: Counseling-Symptomatic: 3-10 Minutes AZEEM MELVIN DO Oct 18, 2021 06:48
[2021-10-18 08:00] VITALS: BP 129/71
[2021-10-18] MEDS: meTOprolol SUCCINATE 100 MG (TOPROL XL) TAB PO SCH (08:53)
[2021-10-18] MEDS: METHOCARBAMOL 750 MG (ROBAXIN) TAB PO SCH ×4 (08:53→21:04)
[2021-10-18] MEDS: SENNA W/DOCUSATE (SENOKOT S) TABLET PO SCH (08:53)
[2021-10-18] MEDS: amLODIPine 10 MG (NORVASC) TAB PO SCH (08:53)
[2021-10-18] MEDS: lisINopril 20 MG (PRINIVIL) TABLET PO SCH (08:53)
[2021-10-18] MEDS: GABAPENTIN 400 MG (NEURONTIN) CAP PO SCH ×2 (08:54→21:02)
[2021-10-18] MEDS: IRON SUCROSE 200 MG/10 ML (VENOFER) VIAL IV SCH (08:54)
[2021-10-18] MEDS: polyethylene glycoL POWDER 17 GM (MIRALAX) PACK PO SCH ×2 (09:05→19:36)
--- NOTE | 2021-10-18 10:40 | Physical Therapy Progress Note ---
Therapy Progress Note Pt refused therapy this morning due to limited sleep. We will resume therapy on 10/20. Refusal at 0957 VLAD DODD PT Oct 18, 2021 10:40
[2021-10-18 12:00] VITALS: BP 179/72
[2021-10-18] MEDS: ENOXAPARIN 40 MG/0.4 ML (LOVENOX) SYR SC SCH (12:21)
[2021-10-18 14:15] LABS: IMMUNOFIX PATH REPORT NUMBER Complete (Complete)
[2021-10-18 16:00] VITALS: BP 154/67
[2021-10-18 19:50] VITALS: BP 158/77
[2021-10-18] MEDS: guaiFENesin/DM (ROBITUSSIN DM) 10 ML UDC PO PRN (21:04)
[2021-10-18] MEDS: rOPINIRole 0.25 MG (REQUIP) TAB PO SCH (21:04)
[2021-10-19] VITALS (8 sets, daily range): BP systolic 122–175; BP diastolic 68–81
[2021-10-19 05:14] LABS: BASOPHILS # (AUTO) 0.1 10^3/uL (0.0-0.1); BASOPHILS % (AUTO) 1 % (0-10); EOSINOPHILS # (AUTO) 0.3 10^3/uL (0.0-0.3); EOSINOPHILS % (AUTO) 4 % (0-10); HEMATOCRIT 23 % (35-52); HEMOGLOBIN 7.3 g/dL (11.5-16.0); LYMPHOCYTES # (AUTO) 2.6 10^3/uL (1.0-4.0); LYMPHOCYTES % (AUTO) 27 % (12-44); MEAN CORPUSCULAR HEMOGLOBIN 28 pg (25-34); MEAN CORPUSCULAR HGB CONC 32 g/dL (32-36); MEAN CORPUSCULAR VOLUME 89 fL (80-99); MEAN PLATELET VOLUME 9.6 fL (9.0-12.2); MONOCYTES # (AUTO) 0.8 10^3/uL (0.0-1.0); MONOCYTES % (AUTO) 8 % (0-12); NEUTROPHILS # (AUTO) 5.7 10^3/uL (1.8-7.8); NEUTROPHILS % (AUTO) 59 % (42-75); PLATELET COUNT 412 10^3/uL (130-400); WHITE BLOOD COUNT 9.7 10^3/uL (4.3-11.0)
[2021-10-19 05:42] LABS: ALBUMIN 2.3 GM/DL (3.2-4.5); POTASSIUM 4.1 MMOL/L (3.6-5.0)
[2021-10-19 05:43] LABS: CALCIUM 8.5 MG/DL (8.5-10.1)
[2021-10-19 05:44] LABS: TOTAL PROTEIN 6.1 GM/DL (6.4-8.2)
[2021-10-19 05:46] LABS: BILIRUBIN,TOTAL 0.2 MG/DL (0.1-1.0)
[2021-10-19 05:48] LABS: CREATININE SERUM 0.95 MG/DL (0.60-1.30)
[2021-10-19] MEDS: inSUlin ASPART (NovoLOG) 1 UNIT/0.01 ML (CHARGE PER UNIT) SC SCH ×4 (05:55→21:03)
[2021-10-19] MEDS: DEXTROSE 50% 50 ML (IMS) SYR IV PRN (05:55)
[2021-10-19] MEDS: guaiFENesin/DM (ROBITUSSIN DM) 10 ML UDC PO PRN ×2 (06:02→10:15)
[2021-10-19] MEDS: PANTOPRAZOLE 40 MG (PROTONIX) TAB PO SCH ×2 (06:02→16:44)
[2021-10-19] MEDS: SUCRALFATE 1 GM (CARAFATE) TAB PO SCH ×4 (06:02→21:03)
[2021-10-19] MEDS: morphine IMMEDIATE RELEASE 15 MG TABLET PO PRN ×3 (06:03→23:50)
[2021-10-19] MEDS: meTOprolol SUCCINATE 100 MG (TOPROL XL) TAB PO SCH (09:51)
[2021-10-19] MEDS: amLODIPine 10 MG (NORVASC) TAB PO SCH (09:51)
[2021-10-19] MEDS: polyethylene glycoL POWDER 17 GM (MIRALAX) PACK PO SCH ×2 (09:51→21:03)
[2021-10-19] MEDS: METHOCARBAMOL 750 MG (ROBAXIN) TAB PO SCH ×4 (09:52→21:03)
[2021-10-19] MEDS: SENNA W/DOCUSATE (SENOKOT S) TABLET PO SCH (09:52)
[2021-10-19] MEDS: GABAPENTIN 400 MG (NEURONTIN) CAP PO SCH ×2 (09:52→21:02)
[2021-10-19] MEDS: lisINopril 20 MG (PRINIVIL) TABLET PO SCH (09:52)
[2021-10-19] MEDS: morphine ER 30 MG (MS CONTIN) TAB PO SCH ×2 (09:54→21:03)
[2021-10-19] MEDS: ENOXAPARIN 40 MG/0.4 ML (LOVENOX) SYR SC SCH (11:13)
--- NOTE | 2021-10-19 12:27 | Progress Note - Hospitalist ---
Subjective HPI/CC On Admission Date Seen by Provider: Oct 19, 2021 Time Seen by Provider: 12:00 Chief complaint: Hyperglycemia with back pain History of present illness: This is a 61-year-old white female who has a history of DKA brittle diabetes who presents to the ER with complaints of abdominal pain back pain and weakness. She fell sustaining compression fractures on and is struggling with the pain ever since. She was found to have severe hyperglycemia of 600 but no DKA meeting criteria for insulin drip for non-DKA status. We will restart her home medication and pain medication. Subjective/Events-last exam Patient doing really well Cough is improved Check meds and labs Blood sugars labile due to brittle diabetes Decreasing Levemir from 10 to 5 units at night Discharge plan for tomorrow Morphine 60 mg twice daily is really working for her Review of Systems Musculoskeletal: back pain Focused Exam Time of Focused Exam: 06:55 Objective Exam Vital Signs Vital Signs Date Time Temp Pulse Resp B/P (MAP) Pulse Ox O2 Delivery O2 Flow Rate FiO2 10/20/21 04:45 37.6 59 18 122/73 (89) 92 Room Air 0.00 Capillary Refill : Less Than 3 Seconds General Appearance: No Apparent Distress, WD/WN, Chronically ill Respiratory: Lungs Clear, Normal Breath Sounds Cardiovascular: Regular Rate, Rhythm Neurologic/Psychiatric: Alert, Oriented x3, No Motor/Sensory Deficits, Normal Mood/Affect Results/Procedures Lab Laboratory Tests 10/20/21 04:30 10/20/21 05:00 Patient resulted labs reviewed. Assessment/Plan Assessment and Plan Assess & Plan/Chief Complaint Assessment: Status post severe hyperglycemia nonketotic state requiring insulin drip 9 days ago Severe compression fractures with severe pain left kyphoplasty after bone biopsy and [place], [place] on Wednesday and will discharge on Wednesday MRI suspicious for cancer metastasis will obtain biopsy during kyphoplasty Diabetes pgb-hx-wkzgbwz noncompliant Current smoker GERD Chronic kidney disease Hypertension CAD Loose stools Cough Plan: Moved to the floor Monitor sugar Pain control 10/12/2021: Compression fracture management 10/18/2021: Morphine 60 mg twice daily Cough syrup Discharge on Wednesday10/19/2021: Needs transportation to [place] on Wednesday Clinical Quality Measures Smoking Cessation Counseling: Counseling-Symptomatic: 3-10 Minutes AZEEM MELVIN DO Oct 19, 2021 12:27
[2021-10-19] MEDS: rOPINIRole 0.25 MG (REQUIP) TAB PO SCH (21:02)
[2021-10-20] VITALS (9 sets, daily range): BP systolic 122–185; BP diastolic 61–78
[2021-10-20 04:55] LABS: ALBUMIN 2.2 GM/DL (3.2-4.5)
[2021-10-20 04:56] LABS: POTASSIUM 4.4 MMOL/L (3.6-5.0)
[2021-10-20 04:57] LABS: CALCIUM 8.3 MG/DL (8.5-10.1)
[2021-10-20 04:58] LABS: TOTAL PROTEIN 5.7 GM/DL (6.4-8.2)
[2021-10-20 05:00] LABS: BILIRUBIN,TOTAL 0.2 MG/DL (0.1-1.0)
[2021-10-20 05:02] LABS: CREATININE SERUM 1.17 MG/DL (0.60-1.30)
[2021-10-20 05:08] LABS: BASOPHILS # (AUTO) 0.1 10^3/uL (0.0-0.1); BASOPHILS % (AUTO) 1 % (0-10); EOSINOPHILS # (AUTO) 0.2 10^3/uL (0.0-0.3); EOSINOPHILS % (AUTO) 2 % (0-10); HEMATOCRIT 21 % (35-52); LYMPHOCYTES # (AUTO) 2.7 10^3/uL (1.0-4.0); LYMPHOCYTES % (AUTO) 27 % (12-44); MEAN CORPUSCULAR HEMOGLOBIN 28 pg (25-34); MEAN CORPUSCULAR HGB CONC 31 g/dL (32-36); MEAN CORPUSCULAR VOLUME 90 fL (80-99); MEAN PLATELET VOLUME 9.5 fL (9.0-12.2); MONOCYTES # (AUTO) 0.8 10^3/uL (0.0-1.0); MONOCYTES % (AUTO) 8 % (0-12); NEUTROPHILS # (AUTO) 6.1 10^3/uL (1.8-7.8); NEUTROPHILS % (AUTO) 61 % (42-75); PLATELET COUNT 406 10^3/uL (130-400); WHITE BLOOD COUNT 10.1 10^3/uL (4.3-11.0)
[2021-10-20 05:11] LABS: HEMOGLOBIN 6.6 g/dL (11.5-16.0)
[2021-10-20] MEDS: inSUlin ASPART (NovoLOG) 1 UNIT/0.01 ML (CHARGE PER UNIT) SC SCH ×4 (06:07→22:06)
[2021-10-20] MEDS ORDERED: NS IV 500 ML 500 ML IV SCH ×2 (06:15)
[2021-10-20] MEDS: PANTOPRAZOLE 40 MG (PROTONIX) TAB PO SCH ×2 (07:51→17:47)
[2021-10-20] MEDS: SUCRALFATE 1 GM (CARAFATE) TAB PO SCH ×4 (07:51→22:06)
[2021-10-20] MEDS: IRON SUCROSE 200 MG/10 ML (VENOFER) VIAL IV SCH (08:41)
[2021-10-20] MEDS: SENNA W/DOCUSATE (SENOKOT S) TABLET PO SCH (08:41)
[2021-10-20] MEDS: GABAPENTIN 400 MG (NEURONTIN) CAP PO SCH ×2 (08:41→20:56)
[2021-10-20] MEDS: meTOprolol SUCCINATE 100 MG (TOPROL XL) TAB PO SCH (08:41)
[2021-10-20] MEDS: amLODIPine 10 MG (NORVASC) TAB PO SCH (08:41)
[2021-10-20] MEDS: lisINopril 20 MG (PRINIVIL) TABLET PO SCH (08:41)
[2021-10-20] MEDS: polyethylene glycoL POWDER 17 GM (MIRALAX) PACK PO SCH ×2 (08:42→22:02)
[2021-10-20] MEDS: morphine ER 30 MG (MS CONTIN) TAB PO SCH ×2 (08:42→20:57)
[2021-10-20] MEDS: METHOCARBAMOL 750 MG (ROBAXIN) TAB PO SCH ×4 (08:42→22:06)
--- NOTE | 2021-10-20 10:34 | Physical Therapy Daily Note ---
PT Daily Note-Current Subjective Patient agrees to PT. Currently receiving PRBC. Mental Status Patient Orientation: Normal For Age Attachments: Central Line Transfers SCALE: Activities may be completed with or without assistive devices. 2-Gkiwaheyyu-gycsmri completes the activity by him/herself with no assistance from a helper. 5-Set-up or Clean-up Assistance-helper sets up or cleans up; patient completes activity. [place] assists only prior to or following the activity. 4-Supervision or Touching Assistance-helper provides verbal cues and/or touching/steadying and/or contact guard assistance as patient completes activity. Assistance may be provided throughout the activity or intermittently. 3-Partial/Moderate Assistance-helper does LESS THAN HALF the effort. [place] lifts, holds or supports trunk or limbs, but provides less than half the effort. 2-Substantial/Maximal Assistance-helper does MORE THAN HALF the effort. [place] lifts or holds trunk or limbs and provides more than half the effort. 7-Lydokdqik-nntmmp does ALL the effort. Patient does none of the effort to complete the activity. Or, the assistance of 2 or more helpers is required for the patient to complete the activity. If activity was not attempted, code reason: 7-Patient Refused. 9-Not Applicable-not attempted and the patient did not perform the activity before the current illness, exacerbation or injury. 10-Not Attempted due to Environmental Limitations-(lack of equipment, weather restraints, etc.). 88-Not Attempted due to Medical Conditions or Safety Concerns. Lying to Sitting/Side of Bed(Q: 4 Sit to Stand (QC): 4 Chair/Hpd-nq-Xwogq Xfer(QC): 4 Toilet Transfer (QC): 4 patient toilets independently and washes hands Gait Training Distance: 25' x 2 Walk 10 feet (QC): 4 Gait Assistive Device: None refused to utilize FWW Exercises Seated Therapy Exercises: Ankle pumps, Long arc quads Seated Reps: 15 Assessment Patient up in recliner for breakfast. Patient tolerates minimal activity. PT Short Term Goals Short Term Goals Time Frame: Oct 29, 2021 Roll Left & Right: 4 Sit to lyin Lying to sitting on side of be: 4 Sit to stand: 5 Chair/eug-lq-litau transfer: 6 Toilet transfer: 6 Walk 10 feet: 5 Walk 50 feet with two turns: 5 Walk 150 feet: 5 PT [facility] Goals Director Of [employer] Goals PT [facility] Goals Time Frame: Nov 21, 2021 Roll Left & Right (QC): 6 Sit to Lying (QC): 6 Lying-Sitting on Side/Bed(QC): 6 Sit to Stand (QC): 6 Chair/Tyr-hi-Lssbm Xfer(QC): 6 Toilet Transfer (QC): 6 Does the Patient Walk: Yes Walk 10 feet (QC): 6 Walk 50ft with 2 Turns (QC): 6 Walk 150 ft (QC): 6 1 Step (curb) (QC): 4 4 Steps (QC): 4 12 Steps (QC): 4 Picking up an Object (QC): 4 Does the Pt use WC or Scooter?: No PT Plan Treatment/Plan Treatment Plan: Continue Plan of Care Treatment Plan: Bed Mobility, Education, Functional Activity Yue, Functional Strength, Gait, Safety, Therapeutic Exercise, Transfers Treatment Duration: Nov 21, 2021 Frequency: 5 times per week Estimated Hrs Per Day: .25 hour per day Patient and/or Family Agrees t: Yes Time/GCodes Time In: 1006 Time Out: 1021 Total Billed Treatment Time: 15 Total Billed Treatment 1 visit FA 15 min KELVIN CALVO PT Oct 20, 2021 10:34
[2021-10-20] MEDS: guaiFENesin/DM (ROBITUSSIN DM) 10 ML UDC PO PRN ×2 (10:55→19:26)
[2021-10-20] MEDS: ENOXAPARIN 40 MG/0.4 ML (LOVENOX) SYR SC SCH (10:55)
--- NOTE | 2021-10-20 11:58 | Progress Note - Hospitalist ---
NICKTHERONALBINA 10/20/21 1158: Subjective HPI/CC On Admission Date Seen by Provider: Oct 20, 2021 Time Seen by Provider: 08:26 Chief complaint: Hyperglycemia with back pain History of present illness: This is a 61-year-old white female who has a history of DKA brittle diabetes who presents to the ER with complaints of abdominal pain back pain and weakness. She fell sustaining compression fractures on Halloween and is struggling with the pain ever since. She was found to have severe hyperglycemia of 600 but no DKA meeting criteria for insulin drip for non-DKA status. We will restart her home medication and pain medication. Subjective/Events-last exam Today pt was resting in bed, but complains of pain and discomfort in her back. Pt will receive 1 unit of blood for her anemia. No questions or concerns at this time. Review of Systems General: No Chills, No Night Sweats; Fatigue HEENT: No Head Aches, No Visual Changes, No Dysphasia, No Sore Throat Pulmonary: No Dyspnea, No Cough, No Pleuritic Chest Pain Cardiovascular: No: Chest Pain, Palpitations, Edema Gastrointestinal: No: Nausea, Vomiting, Abdominal Pain, Melena, Hematochezia Genitourinary: No Dysuria, No Frequency, No Incontinence, No Hematuria Musculoskeletal: back pain; No: neck pain, shoulder pain Neurological: Weakness; No: Numbness, Seizures Focused Exam Time of Focused Exam: 06:55 Objective Exam Vital Signs Vital Signs Date Time Temp Pulse Resp B/P (MAP) Pulse Ox O2 Delivery O2 Flow Rate FiO2 10/20/21 10:03 37.0 72 18 137/65 91 Room Air 10/20/21 08:00 0.00 Capillary Refill : Less Than 3 Seconds General Appearance: No Apparent Distress, Chronically ill, Thin HEENT: PERRL/EOMI, Pharynx Normal Neck: Full Range of Motion, Non Tender, Supple Respiratory: Chest Non Tender, Lungs Clear, Normal Breath Sounds, No Accessory Muscle Use, No Respiratory Distress Cardiovascular: Regular Rate, Rhythm, No Edema, No Gallop, No Murmur, Normal Peripheral Pulses Gastrointestinal: Normal Bowel Sounds, No Organomegaly, No Pulsatile Mass, Non Tender, Soft Rectal: Deferred Back: No CVA Tenderness, Vertebral Tenderness Extremity: Normal Capillary Refill, Normal Range of Motion, Non Tender, No Calf Tenderness, No Pedal Edema Neurologic/Psychiatric: Alert, Oriented x3, No Motor/Sensory Deficits, Normal Mood/Affect, log tumbler II-XII Norm as Tested Reflexes: 2+ Bicep (R), 2+ Bicep (L) Skin: Normal Color, Warm/Dry Lymphatic: No Adenopathy (cervical and axillary) Results/Procedures Lab Laboratory Tests 10/20/21 04:30 10/20/21 05:00 Patient resulted labs reviewed. Assessment/Plan Assessment and Plan Assess & Plan/Chief Complaint Assessment: Status post severe hyperglycemia nonketotic state requiring insulin drip 9 days ago Severe compression fractures with severe pain left kyphoplasty after bone biopsy and [place] on Wednesday and will discharge on Wednesday MRI suspicious for cancer metastasis will obtain biopsy during kyphoplasty Diabetes mfk-rg-dwjoknu noncompliant Current smoker GERD Chronic kidney disease Hypertension CAD Loose stools Cough Plan: Moved to the floor Monitor sugar Pain control 10/12/2021: Compression fracture management 10/18/2021: Morphine 60 mg twice daily Cough syrup Discharge on Wednesday10/19/2021: Needs transportation to [place] on Wednesday10/20/2021: Continue pain control Monitor Hgb Supportive care Needs transportation to [place] on Wednesday Clinical Quality Measures Smoking Cessation Counseling: Counseling-Symptomatic: 3-10 Minutes JAZMINE MELVIN DO 10/21/21 0600: Subjective Subjective/Events-last exam Pt was going to go home today but hgb 6.6 requiring 1 unit of blood Morphine will be decreased to 45 twice a day due to increased confusion noted today [facility] is her pharmacy Overall she seems to be stable from a blood sugar management Review of Systems General: Fatigue Musculoskeletal: back pain Neurological: Confusion Objective Exam General Appearance: No Apparent Distress, WD/WN, Chronically ill Respiratory: Lungs Clear, Normal Breath Sounds Cardiovascular: Regular Rate, Rhythm Neurologic/Psychiatric: Alert, Disoriented Assessment/Plan Assessment and Plan Assess & Plan/Chief Complaint Decrease morphine Monitor confusion Supervisory-Addendum Brief Verification & Attestation Participated in pt care: history, MDM, physical Personally performed: exam, history, MDM, supervision of care Care discussed with: Medical Student Procedures: n/a Results interpretation: Verified all documentation Verification and Attestation of Medical Student E/M Service A medical student performed and documented this service in my presence. I reviewed and verified all information documented by the medical student and made modifications to such information, when appropriate. I personally performed the physical exam and medical decision making. Jazmine Melvin, Oct 21, 2021,05:59 ALBINA DUNN Oct 20, 2021 11:58 JAZMINE MELVIN DO Oct 21, 2021 06:00
[2021-10-20] MEDS: morphine IMMEDIATE RELEASE 15 MG TABLET PO PRN (19:26)
[2021-10-20] MEDS: rOPINIRole 0.25 MG (REQUIP) TAB PO SCH (20:58)
[2021-10-21 00:59] VITALS: BP 154/71
[2021-10-21] MEDS: morphine IMMEDIATE RELEASE 15 MG TABLET PO PRN ×2 (01:08→11:55)
[2021-10-21 04:15] LABS: BASOPHILS # (AUTO) 0.1 10^3/uL (0.0-0.1); BASOPHILS % (AUTO) 1 % (0-10); EOSINOPHILS # (AUTO) 0.3 10^3/uL (0.0-0.3); EOSINOPHILS % (AUTO) 2 % (0-10); HEMATOCRIT 25 % (35-52); LYMPHOCYTES # (AUTO) 1.8 10^3/uL (1.0-4.0); LYMPHOCYTES % (AUTO) 14 % (12-44); MEAN CORPUSCULAR HEMOGLOBIN 28 pg (25-34); MEAN CORPUSCULAR HGB CONC 32 g/dL (32-36); MEAN CORPUSCULAR VOLUME 88 fL (80-99); MEAN PLATELET VOLUME 9.3 fL (9.0-12.2); MONOCYTES # (AUTO) 0.9 10^3/uL (0.0-1.0); MONOCYTES % (AUTO) 7 % (0-12); NEUTROPHILS # (AUTO) 9.1 10^3/uL (1.8-7.8); NEUTROPHILS % (AUTO) 74 % (42-75); PLATELET COUNT 446 10^3/uL (130-400); WHITE BLOOD COUNT 12.2 10^3/uL (4.3-11.0)
[2021-10-21 04:26] LABS: ALBUMIN 2.3 GM/DL (3.2-4.5); POTASSIUM 3.7 MMOL/L (3.6-5.0)
[2021-10-21 04:27] LABS: CALCIUM 8.4 MG/DL (8.5-10.1)
[2021-10-21 04:28] LABS: TOTAL PROTEIN 6.1 GM/DL (6.4-8.2)
[2021-10-21 04:30] LABS: BILIRUBIN,TOTAL 0.2 MG/DL (0.1-1.0)
[2021-10-21 04:32] LABS: CREATININE SERUM 1.05 MG/DL (0.60-1.30)
[2021-10-21 04:41] VITALS: BP 147/72
[2021-10-21] MEDS: inSUlin ASPART (NovoLOG) 1 UNIT/0.01 ML (CHARGE PER UNIT) SC SCH ×4 (04:43→21:00)
[2021-10-21] MEDS: SUCRALFATE 1 GM (CARAFATE) TAB PO SCH ×5 (06:01→21:26)
[2021-10-21] MEDS: PANTOPRAZOLE 40 MG (PROTONIX) TAB PO SCH ×2 (06:01→16:59)
[2021-10-21 08:00] VITALS: BP 148/65
[2021-10-21] MEDS: METHOCARBAMOL 750 MG (ROBAXIN) TAB PO SCH ×4 (08:38→21:26)
[2021-10-21] MEDS: GABAPENTIN 400 MG (NEURONTIN) CAP PO SCH ×2 (08:38→21:26)
[2021-10-21] MEDS: amLODIPine 10 MG (NORVASC) TAB PO SCH (08:39)
[2021-10-21] MEDS: meTOprolol SUCCINATE 100 MG (TOPROL XL) TAB PO SCH (08:39)
[2021-10-21] MEDS: lisINopril 20 MG (PRINIVIL) TABLET PO SCH (08:39)
[2021-10-21] MEDS: morphine ER 30 MG (MS CONTIN) TAB PO SCH ×2 (08:40→21:26)
[2021-10-21] MEDS: polyethylene glycoL POWDER 17 GM (MIRALAX) PACK PO SCH ×2 (08:42→21:00)
[2021-10-21] MEDS: SENNA W/DOCUSATE (SENOKOT S) TABLET PO SCH (08:42)
--- NOTE | 2021-10-21 10:20 | Physical Therapy Daily Note ---
PT Daily Note-Current Subjective Patient very tearful on this date. Agrees to PT. Pain Numeric Pain Scale: 10-Worst Possible Pain Location: Right, Left Location Body Site: Hip Pain Description: Sharp Mental Status Patient Orientation: Normal For Age Transfers SCALE: Activities may be completed with or without assistive devices. 1-Boamwsrzys-ibrqixr completes the activity by him/herself with no assistance from a helper. 5-Set-up or Clean-up Assistance-helper sets up or cleans up; patient completes activity. [place] assists only prior to or following the activity. 4-Supervision or Touching Assistance-helper provides verbal cues and/or touching/steadying and/or contact guard assistance as patient completes activity. Assistance may be provided throughout the activity or intermittently. 3-Partial/Moderate Assistance-helper does LESS THAN HALF the effort. [place] lifts, holds or supports trunk or limbs, but provides less than half the effort. 2-Substantial/Maximal Assistance-helper does MORE THAN HALF the effort. [place] lifts or holds trunk or limbs and provides more than half the effort. 0-Xuvduwlye-fqoowg does ALL the effort. Patient does none of the effort to complete the activity. Or, the assistance of 2 or more helpers is required for the patient to complete the activity. If activity was not attempted, code reason: 7-Patient Refused. 9-Not Applicable-not attempted and the patient did not perform the activity before the current illness, exacerbation or injury. 10-Not Attempted due to Environmental Limitations-(lack of equipment, weather restraints, etc.). 88-Not Attempted due to Medical Conditions or Safety Concerns. Lying to Sitting/Side of Bed(Q: 3 Sit to Stand (QC): 4 Chair/Vrw-hl-[place]acc[place] Xfer(QC): 4 Gait Training Does the Patient Walk?: Yes Distance: 25' Walk 10 feet (QC): 4 Gait Assistive Device: FWW very slow, steady gait sequence with PT assist to advance FWW occasionally Assessment Patient up in recliner with breakfast in situ. PT to increase activity as tolerated by patient. PT Short Term Goals Short Term Goals Time Frame: Oct 29, 2021 Roll Left & Right: 4 Sit to lyin Lying to sitting on side of be: 4 Sit to stand: 5 Chair/xmf-zd-jfqyh transfer: 6 Toilet transfer: 6 Walk 10 feet: 5 Walk 50 feet with two turns: 5 Walk 150 feet: 5 PT Rubber Stamp Maker Goals Longterm Goals PT Longterm Goals Time Frame: Nov 21, 2021 Roll Left & Right (QC): 6 Sit to Lying (QC): 6 Lying-Sitting on Side/Bed(QC): 6 Sit to Stand (QC): 6 Chair/Hka-pj-Tiufy Xfer(QC): 6 Toilet Transfer (QC): 6 Does the Patient Walk: Yes Walk 10 feet (QC): 6 Walk 50ft with 2 Turns (QC): 6 Walk 150 ft (QC): 6 1 Step (curb) (QC): 4 4 Steps (QC): 4 12 Steps (QC): 4 Picking up an Object (QC): 4 Does the Pt use WC or Scooter?: No PT Plan Treatment/Plan Treatment Plan: Continue Plan of Care Treatment Plan: Bed Mobility, Education, Functional Activity Yue, Functional Strength, Gait, Safety, Therapeutic Exercise, Transfers Treatment Duration: Nov 21, 2021 Frequency: 5 times per week Estimated Hrs Per Day: .25 hour per day Patient and/or Family Agrees t: Yes Time/GCodes Time In: 930 Time Out: 946 Total Billed Treatment Time: 16 Total Billed Treatment 1 visit FA 16 min KELVIN CALVO PT Oct 21, 2021 10:20
[2021-10-21] MEDS: ENOXAPARIN 40 MG/0.4 ML (LOVENOX) SYR SC SCH (11:48)
[2021-10-21 12:00] VITALS: BP 160/66
[2021-10-21] MEDS: guaiFENesin/DM (ROBITUSSIN DM) 10 ML UDC PO PRN ×2 (12:30→21:33)
--- NOTE | 2021-10-21 12:34 | Progress Note - Hospitalist ---
MONAALBINA 10/21/21 1234: Subjective HPI/CC On Admission Date Seen by Provider: Oct 21, 2021 Time Seen by Provider: 08:36 Chief complaint: Hyperglycemia with back pain History of present illness: This is a 61-year-old white female who has a history of DKA brittle diabetes who presents to the ER with complaints of abdominal pain back pain and weakness. She fell sustaining compression fractures on and is struggling with the pain ever since. She was found to have severe hyperglycemia of 600 but no DKA meeting criteria for insulin drip for non-DKA status. We will restart her home medication and pain medication. Subjective/Events-last exam Today when I visit the pt she was sleeping and could not be easily roused limiting ROS and exam. She did not appear to be in any significant distress. Focused Exam Time of Focused Exam: 06:55 Objective Exam Vital Signs Vital Signs Date Time Temp Pulse Resp B/P (MAP) Pulse Ox O2 Delivery O2 Flow Rate FiO2 10/21/21 08:00 35.8 75 16 148/65 (92) 93 Room Air 10/20/21 08:00 0.00 Capillary Refill : Less Than 3 Seconds General Appearance: No Apparent Distress, WD/WN, Chronically ill Respiratory: Lungs Clear, Normal Breath Sounds, No Accessory Muscle Use, No Respiratory Distress Cardiovascular: Regular Rate, Rhythm, No Edema, No Gallop, No Murmur, Normal Peripheral Pulses Skin: Normal Color, Warm/Dry Results/Procedures Lab Laboratory Tests 10/21/21 04:05 Patient resulted labs reviewed. Assessment/Plan Assessment and Plan Assess & Plan/Chief Complaint Assessment: Status post severe hyperglycemia nonketotic state requiring insulin drip 9 days ago Severe compression fractures with severe pain left kyphoplasty after bone biopsy and [place], [place] on Wednesday and will discharge on Wednesday MRI suspicious for cancer metastasis will obtain biopsy during kyphoplasty Diabetes dnd-ji-cwcznlo noncompliant Current smoker GERD Chronic kidney disease Hypertension CAD Loose stools Cough Plan: Moved to the floor Monitor sugar Pain control 10/12/2021: Compression fracture management 10/18/2021: Morphine 60 mg twice daily Cough syrup Discharge on Wednesday10/19/2021: Needs transportation to [place] on Wednesday10/20/2021: Continue pain control Monitor Hgb Supportive care Needs transportation to [place] on Wednesday10/21/2021 Continue pain control Monitor Hgb (improved 8.4) Supportive care Consult Bagging Salvager for possible rehab placement - very debilitated status Needs transportation to [place] on Wednesday Clinical Quality Measures Smoking Cessation Counseling: Counseling-Symptomatic: 3-10 Minutes JAZMINE MELVIN DO 10/22/21 0610: Subjective Subjective/Events-last exam Pt having a mental decompensation Hgb 8.0 after one unit of blood Wants Morphine changed to OxyContin Sleeps all the time Spoke with geriatric social worker to arrange placement Review of Systems General: Fatigue, Malaise Musculoskeletal: back pain Objective Exam General Appearance: No Apparent Distress, WD/WN, Chronically ill Respiratory: No Accessory Muscle Use, No Respiratory Distress, Decreased Breath Sounds Cardiovascular: Regular Rate, Rhythm Neurologic/Psychiatric: Alert, Oriented x3, Depressed Affect Assessment/Plan Assessment and Plan Assess & Plan/Chief Complaint Monitor hemoglobin Needs long term placement DC morphine immediate release and switch back to oxycodone Supervisory-Addendum Brief Verification & Attestation Participated in pt care: history, MDM, physical Personally performed: exam, history, MDM, supervision of care Care discussed with: Medical Student Procedures: n/a Results interpretation: Verified all documentation Verification and Attestation of Medical Student E/M Service A medical student performed and documented this service in my presence. I rev iewed and verified all information documented by the medical student and made modifications to such information, when appropriate. I personally performed the physical exam and medical decision making. Jazmine Melvin Oct 22, 2021,06:09 ALBINA DUNN Oct 21, 2021 12:34 JAZMINE MELVIN DO Oct 22, 2021 06:10
--- NOTE | 2021-10-21 14:53 | Occupational Therapy Eval ---
OT Evaluation-General/PLF Medical Diagnosis Admission Date Oct 11, 2021 at 02:00 Medical Diagnosis: L2 Compression Fracture Onset Date: Oct 13, 2021 Therapy Diagnosis Therapy Diagnosis: decreased ADL status Height/Weight Height (Feet): 5 Height (Inches): 1.00 Weight (Pounds): 122 Weight (Ounces): 1.0 Precautions Precautions/Isolations: Fall Prevention, Standard Precautions Referral Physician: Jamal Referral Reason: Evaluation/Treatment Medical History Pertinent Medical History: Alcoholism, CAD, DM, GERD, HTN, Neuropathy, Renal Insufficiency, Smoking Additional Medical History DKA, GI bleed, arthritis Current History ED c/o abdominal pain, back pain, and weakness. Pt fell 09/21/21 sustaining L2 compression fracture, struggled with pain since. Pt found to have severe hyperglycemia of 600 Social History Home: Single Level Current Living Status: Other Family (sister) Steps Into Home: 1 ADL-Prior Level of Function SCALE: Activities may be completed with or without assistive devices. 1-Zzlpkivhbl-pwubotf completes the activity by him/herself with no assistance from a helper. 5-Set-up or Clean-up Assistance-helper sets up or cleans up; patient completes activity. [place] assists only prior to or following the activity. 4-Supervision or Touching Assistance-helper provides verbal cues and/or touching/steadying and/or contact guard assistance as patient completes activity. Assistance may be provided throughout the activity or intermittently. 3-Partial/Moderate Assistance-helper does LESS THAN HALF the effort. [place] li fts, holds or supports trunk or limbs, but provides less than half the effort. 2-Substantial/Maximal Assistance-helper does MORE THAN HALF the effort. [place] lifts or holds trunk or limbs and provides more than half the effort. 0-Zqpvounxw-ugvwxd does ALL the effort. Patient does none of the effort to complete the activity. Or, the assistance of 2 or more helpers is required for the patient to complete the activity. If activity was not attempted, code reason: 7-Patient Refused. 9-Not Applicable-not attempted and the patient did not perform the activity before the current illness, exacerbation or injury. 10-Not Attempted due to Environmental Limitations-(lack of equipment, weather restraints, etc.). 88-Not Attempted due to Medical Conditions or Safety Concerns. ADL PLOF Comments Pt reports IND with ADLs and functional mobility at PLOF, using walker. Pt does not answer further questions about PLOF and home set up. Self Care: Independent Functional Cognition: Independent OT Current Status Subjective Pt laying in bed, agreeable to OT tx with focus on repositioning in bed. Pt screamed in pain, 10/10 pain in her back. Tearful throughout session, stating she doesn't think her sister is going to let her return home. Mental Status/Objective Patient Orientation: Person, Normal For Age Current Upper Extremity ROM AAROM WFL, pt did not follow instructions for testing of AROM Upper Extremity Coordination WFL Upper Extremity Strength Not formally tested due to pain/compression fx. ADL-Treatment Eating (QC): 6 (Per nursing report.) Oral Hygiene (QC): 5 (based on clincial judgment.) Other Treatments Pt laying in bed, had scooted down towards foot of the bed requiring repositioning. HOB lowered in order for pt to be repositioned, pt hollered out in pain. Pt's knees flexed, OT assisted pt with positioning UEs on bed rails and instructed pt to scoot herself up. Pt required moderate assistance in order to scoot up in bed. OT elevated HOB, pt again hollered out in pain. OT educated pt on purpose and benefit of OT with focus on increasing independence in order for her to return home. Pt began crying and yelling out that she doesn't think she will have a home to go back to. OT provided therapeutic listening to pt, pt states she believes her sister has been trying to get a hold of her to tell pt that she is kicked out of the house. Pt agreeable to OT assisting pt in calling her sister Jessica. OT called Jessica on room phone, then gave pt the phone. Post tx, pt on phone with her sister, call light in reach and all need met. Per PT note today, pt able to ambulate 25' with FWW, QC 4. Sit to stand transfers QC 4, and supine to sit transfer QC 3. Education OT Patient Education: Correct positioning, Modified ADL techniques, Progress toward Goal/Update tx plan, Purpose of tx/functional activities, Rehab process Teaching Recipient: Health Care Proxy Teaching Methods: Discussion Response to Teaching: Verbalize Understanding OT Presales Consultant Goals Usp Goals Time Frame: Oct 31, 2021 Eating (QC): 6 Oral Hygiene (QC): 6 Toileting Hygiene (QC): 4 Shower/Bathe Self (QC): 4 Upper Body Dressing (QC): 5 Lower Body Dressing (QC): 4 On/Off Footwear (QC): 4 Additional Goals: 1-Demonstrate ADL Tasks, 2-Verbalize Understanding, 3- ImproveStrength/Yue 1=Demonstrate adherence to instructed precautions during ADL tasks. 2=Patient will verbalize/demonstrate understanding of assistive devices/modifications for ADL. 3=Patient will improve strength/tolerance for activity to enable patient to perform ADL's. OT Education/Plan Problem List/Assessment Assessment: Decreased Activ Tolerance, Decreased UE Strength, Impaired Bed Mobility, Impaired Funct Balance, Impaired I ADL's, Impaired Self-Care Skills, Restricted Funct UE ROM Discharge Recommendations Plan/Recommendations: Continue POC Therapy Discharge Recommendati: Post Acute OT Treatment Plan/Plan of Care Patient would benefit from OT for education, treatment and training to promote independence in ADL's, mobility, safety and/or upper extremity function for ADL's. Plan of Care: ADL Retraining, Functional Mobility, UE Funct Exercise/Act Treatment Duration: Oct 31, 2021 Frequency: 3 times per week (3-5 times per week) Rehab Potential: Guarded Time/GCodes Start Time: 14:10 Stop Time: 14:28 Total Time Billed (hr/min): 18 Billed Treatment Time 1FOSTER ADDISON OT Oct 21, 2021 14:53
[2021-10-21 16:00] VITALS: BP 147/71
[2021-10-21 20:00] VITALS: BP 166/76
[2021-10-21] MEDS: rOPINIRole 0.25 MG (REQUIP) TAB PO SCH (21:26)
[2021-10-22] VITALS: BP 146/74
[2021-10-22] MEDS: guaiFENesin/DM (ROBITUSSIN DM) 10 ML UDC PO PRN ×5 (02:25→21:44)
[2021-10-22 03:14] VITALS: BP 144/67
[2021-10-22] MEDS: PANTOPRAZOLE 40 MG (PROTONIX) TAB PO SCH ×2 (06:08→16:54)
[2021-10-22] MEDS: SUCRALFATE 1 GM (CARAFATE) TAB PO SCH ×4 (06:15→19:57)
[2021-10-22 06:18] LABS: BASOPHILS # (AUTO) 0.1 10^3/uL (0.0-0.1); BASOPHILS % (AUTO) 1 % (0-10); EOSINOPHILS # (AUTO) 0.2 10^3/uL (0.0-0.3); EOSINOPHILS % (AUTO) 2 % (0-10); HEMATOCRIT 24 % (35-52); HEMOGLOBIN 7.7 g/dL (11.5-16.0); LYMPHOCYTES # (AUTO) 2.5 10^3/uL (1.0-4.0); LYMPHOCYTES % (AUTO) 26 % (12-44); MEAN CORPUSCULAR HEMOGLOBIN 29 pg (25-34); MEAN CORPUSCULAR HGB CONC 32 g/dL (32-36); MEAN CORPUSCULAR VOLUME 89 fL (80-99); MONOCYTES # (AUTO) 0.9 10^3/uL (0.0-1.0); MONOCYTES % (AUTO) 9 % (0-12); NEUTROPHILS % (AUTO) 61 % (42-75); PLATELET COUNT 354 10^3/uL (130-400); WHITE BLOOD COUNT 9.8 10^3/uL (4.3-11.0)
[2021-10-22 06:31] LABS: ALBUMIN 2.2 GM/DL (3.2-4.5)
[2021-10-22 06:32] LABS: CHLORIDE 108 MMOL/L (98-107); POTASSIUM 3.6 MMOL/L (3.6-5.0); SODIUM 139 MMOL/L (135-145)
[2021-10-22 06:33] LABS: CALCIUM 8.4 MG/DL (8.5-10.1)
[2021-10-22 06:34] LABS: GLUCOSE 107 MG/DL (70-105)
[2021-10-22 06:35] LABS: CARBON DIOXIDE 23 MMOL/L (21-32)
[2021-10-22 06:36] LABS: BILIRUBIN,TOTAL 0.2 MG/DL (0.1-1.0)
[2021-10-22 06:37] LABS: ALKALINE PHOSPHATASE 63 U/L (40-136)
[2021-10-22 06:38] LABS: CREATININE SERUM 0.89 MG/DL (0.60-1.30); GFR ESTIMATED 64
[2021-10-22 06:39] LABS: BUN/CREATININE RATIO 20
[2021-10-22 06:41] LABS: ALANINE AMINOTRANSFERASE < 6 U/L (0-55)
[2021-10-22] MEDS: inSUlin ASPART (NovoLOG) 1 UNIT/0.01 ML (CHARGE PER UNIT) SC SCH ×4 (06:49→21:44)
[2021-10-22 08:00] VITALS: BP 185/75
[2021-10-22] MEDS: amLODIPine 10 MG (NORVASC) TAB PO SCH (08:37)
[2021-10-22] MEDS: lisINopril 20 MG (PRINIVIL) TABLET PO SCH (08:38)
[2021-10-22] MEDS: morphine ER 30 MG (MS CONTIN) TAB PO SCH ×2 (08:38→19:56)
[2021-10-22] MEDS: GABAPENTIN 400 MG (NEURONTIN) CAP PO SCH ×2 (08:38→19:56)
[2021-10-22] MEDS: METHOCARBAMOL 750 MG (ROBAXIN) TAB PO SCH ×4 (08:38→19:56)
[2021-10-22] MEDS: meTOprolol SUCCINATE 100 MG (TOPROL XL) TAB PO SCH (08:38)
[2021-10-22] MEDS: polyethylene glycoL POWDER 17 GM (MIRALAX) PACK PO SCH ×2 (08:38→19:57)
[2021-10-22] MEDS: SENNA W/DOCUSATE (SENOKOT S) TABLET PO SCH (08:39)
--- NOTE | 2021-10-22 09:13 | Occ Therapy Progress Note ---
Therapy Progress Note Pt laying in bed, nurse present to give medications. Pt declined therapy at this time. OT educated pt on purpose and benefit of OT, with focus on increasing BUE strength/activity tolerance and increasing independence with ADLs and functional mobility. Pt continued to refuse tx at this time due to pain, and requests OT come back later. OT will attempt tx again at next available time. 0840 1, refusal VERNELL FERRER OT Oct 22, 2021 09:13
--- NOTE | 2021-10-22 11:13 | Physical Therapy Daily Note ---
PT Daily Note-Current Subjective Pt reluctantly agrees to PT agrees to perform bed exs but declines wanting to ambulate or get out of bed. Pain Numeric Pain Scale: 10-Worst Possible Pain Location: Right, Left Location Body Site: Hip Mental Status Patient Orientation: [place], Normal For Age Transfers SCALE: Activities may be completed with or without assistive devices. 5-Uidawbkvii-kqmjoru completes the activity by him/herself with no assistance from a helper. 5-Set-up or Clean-up Assistance-helper sets up or cleans up; patient completes activity. [place] assists only prior to or following the activity. 4-Supervision or Touching Assistance-helper provides verbal cues and/or touching/steadying and/or contact guard assistance as patient completes activity. Assistance may be provided throughout the activity or intermittently. 3-Partial/Moderate Assistance-helper does LESS THAN HALF the effort. [place] lifts, holds or supports trunk or limbs, but provides less than half the effort. 2-Substantial/Maximal Assistance-helper does MORE THAN HALF the effort. [place] lifts or holds trunk or limbs and provides more than half the effort. 6-Itznjctoj-kvwdgd does ALL the effort. Patient does none of the effort to complete the activity. Or, the assistance of 2 or more helpers is required for the patient to complete the activity. If activity was not attempted, code reason: 7-Patient Refused. 9-Not Applicable-not attempted and the patient did not perform the activity before the current illness, exacerbation or injury. 10-Not Attempted due to Environmental Limitations-(lack of equipment, weather restraints, etc.). 88-Not Attempted due to Medical Conditions or Safety Concerns. Roll Left & Right (QC): 4 Gait Training Does the Patient Walk?: No and Walking Goal IS indicated Exercises Supine Ex: Ankle pumps, Quad Set, Rolling, Glut sets, Heel Slides, Scooting, S traight leg raise, Hip abd/add Supine Reps: 10 Treatments Pt in bed upon PT arrival and agrees to bed exs. Pt requires AAROM for first few reps of exs and then able to perform exs w/ AROM. Pt declines wanting to get out of bed this date. PT departs and all needs met and call light nearby. Assessment Current Status: Poor Progress Pt requires convincing in order to perform bed exs and requires frequent encouragement to perform exs. Explained to pt the benefits of walking and getting out of bed but pt refuses to make an attempt d/t pain. PT Short Term Goals Short Term Goals Time Frame: Oct 29, 2021 Roll Left & Right: 4 Sit to lyin Lying to sitting on side of be: 4 Sit to stand: 5 Chair/hyv-ou-zjjqs transfer: 6 Toilet transfer: 6 Walk 10 feet: 5 Walk 50 feet with two turns: 5 Walk 150 feet: 5 PT Custodial Goals Custodial Goals PT Dredge Captain Goals Time Frame: Nov 21, 2021 Roll Left & Right (QC): 6 Sit to Lying (QC): 6 Lying-Sitting on Side/Bed(QC): 6 Sit to Stand (QC): 6 Chair/Anm-ev-Fudev Xfer(QC): 6 Toilet Transfer (QC): 6 Does the Patient Walk: Yes Walk 10 feet (QC): 6 Walk 50ft with 2 Turns (QC): 6 Walk 150 ft (QC): 6 1 Step (curb) (QC): 4 4 Steps (QC): 4 12 Steps (QC): 4 Picking up an Object (QC): 4 Does the Pt use WC or Scooter?: No PT Plan Problem List Problem List: Activity Tolerance, Functional Strength Treatment/Plan Treatment Plan: Continue Plan of Care Treatment Plan: Bed Mobility, Education, Functional Activity Yue, Functional Strength, Gait, Safety, Therapeutic Exercise, Transfers Treatment Duration: Nov 21, 2021 Frequency: 5 times per week Estimated Hrs Per Day: .25 hour per day Patient and/or Family Agrees t: Yes Safety Risks/Education Patient Education: Correct Positioning, Safety Issues Teaching Recipient: Patient Teaching Methods: Discussion Response to Teaching: Verbalize Understanding Time/GCodes Time In: 951 Time Out: 1005 Total Billed Treatment Time: 14 Total Billed Treatment 1 visit, EX (14min) ED ABRAMS PTA Oct 22, 2021 11:13
--- NOTE | 2021-10-22 11:29 | Progress Note - Hospitalist ---
Subjective HPI/CC On Admission Date Seen by Provider: Oct 22, 2021 Time Seen by Provider: 11:00 Chief complaint: Hyperglycemia with back pain History of present illness: This is a 61-year-old white female who has a history of DKA brittle diabetes who presents to the ER with complaints of abdominal pain back pain and weakness. She fell sustaining compression fractures on Halloween and is struggling with the pain ever since. She was found to have severe hyperglycemia of 600 but no DKA meeting criteria for insulin drip for non-DKA status. We will restart her home medication and pain medication. Subjective/Events-last exam Pt is doing okay Hgb 7.7 Still with cough and that makes her back hurt She wasn't in any distress and appeared to be in no pain until I walked in and then she started crying out with pain that seems to be attention-seeking Awaiting [place] [facility] Review of Systems General: Fatigue Pulmonary: Cough Musculoskeletal: back pain Focused Exam Time of Focused Exam: 06:55 Objective Exam Vital Signs Vital Signs Date Time Temp Pulse Resp B/P (MAP) Pulse Ox O2 Delivery O2 Flow Rate FiO2 10/23/21 04:49 37.0 67 16 148/68 (94) 95 Room Air 10/22/21 03:14 1.00 Capillary Refill : Less Than 3 Seconds General Appearance: No Apparent Distress, WD/WN, Chronically ill, Thin Respiratory: No Accessory Muscle Use, No Respiratory Distress, Decreased Breath Sounds Cardiovascular: Regular Rate, Rhythm Neurologic/Psychiatric: Alert, Oriented x3, No Motor/Sensory Deficits, Normal Mood/Affect Results/Procedures Lab Laboratory Tests 10/22/21 06:12 Patient resulted labs reviewed. 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
[2021-10-22 12:00] VITALS: BP 189/83
[2021-10-22] MEDS: ENOXAPARIN 40 MG/0.4 ML (LOVENOX) SYR SC SCH (12:25)
--- NOTE | 2021-10-22 13:15 | Occ Therapy Progress Note ---
Therapy Progress Note Pt laying in bed, declined OT Tx. OT reminded pt of her request to check back later. OT informed pt she has given her half a day to rest and encouraged participation in order to build up strength and activity tolerance. Pt continued to refuse, stating she is in too much pain to do anything and refused all offered treatments. Pt requests OT to check back tomorrow. OT will attempt tx tomorrow per pt's request. [id number] 1, refusal VERNELL FERRER OT Oct 22, 2021 13:15
[2021-10-22 16:05] VITALS: BP 160/70
[2021-10-22] MEDS: rOPINIRole 0.25 MG (REQUIP) TAB PO SCH (19:55)
[2021-10-22 20:00] VITALS: BP 162/72
[2021-10-23 00:06] VITALS: BP 156/80
[2021-10-23 04:49] VITALS: BP 148/68
[2021-10-23 05:25] LABS: BASOPHILS # (AUTO) 0.1 10^3/uL (0.0-0.1); BASOPHILS % (AUTO) 1 % (0-10); EOSINOPHILS # (AUTO) 0.2 10^3/uL (0.0-0.3); EOSINOPHILS % (AUTO) 2 % (0-10); HEMATOCRIT 25 % (35-52); HEMOGLOBIN 8.1 g/dL (11.5-16.0); LYMPHOCYTES # (AUTO) 2.6 10^3/uL (1.0-4.0); LYMPHOCYTES % (AUTO) 23 % (12-44); MEAN CORPUSCULAR HEMOGLOBIN 28 pg (25-34); MEAN CORPUSCULAR HGB CONC 32 g/dL (32-36); MEAN CORPUSCULAR VOLUME 88 fL (80-99); MEAN PLATELET VOLUME 8.9 fL (9.0-12.2); MONOCYTES # (AUTO) 0.9 10^3/uL (0.0-1.0); MONOCYTES % (AUTO) 8 % (0-12); NEUTROPHILS # (AUTO) 7.5 10^3/uL (1.8-7.8); NEUTROPHILS % (AUTO) 66 % (42-75); PLATELET COUNT 401 10^3/uL (130-400); WHITE BLOOD COUNT 11.5 10^3/uL (4.3-11.0)
[2021-10-23 05:36] LABS: ALBUMIN 2.3 GM/DL (3.2-4.5); POTASSIUM 3.6 MMOL/L (3.6-5.0)
[2021-10-23 05:37] LABS: CALCIUM 8.5 MG/DL (8.5-10.1)
[2021-10-23 05:38] LABS: TOTAL PROTEIN 6.1 GM/DL (6.4-8.2)
[2021-10-23 05:40] LABS: BILIRUBIN,TOTAL 0.2 MG/DL (0.1-1.0)
[2021-10-23 05:42] LABS: CREATININE SERUM 0.95 MG/DL (0.60-1.30)
[2021-10-23] MEDS: inSUlin ASPART (NovoLOG) 1 UNIT/0.01 ML (CHARGE PER UNIT) SC SCH ×4 (05:53→21:10)
[2021-10-23] MEDS: SUCRALFATE 1 GM (CARAFATE) TAB PO SCH ×4 (06:41→20:07)
[2021-10-23] MEDS: PANTOPRAZOLE 40 MG (PROTONIX) TAB PO SCH ×2 (06:41→15:47)
[2021-10-23 07:42] VITALS: BP 170/79
[2021-10-23] MEDS: METHOCARBAMOL 750 MG (ROBAXIN) TAB PO SCH ×4 (09:01→20:07)
[2021-10-23] MEDS: GABAPENTIN 400 MG (NEURONTIN) CAP PO SCH ×2 (09:01→20:07)
[2021-10-23] MEDS: ENOXAPARIN 40 MG/0.4 ML (LOVENOX) SYR SC SCH (09:01)
[2021-10-23] MEDS: lisINopril 20 MG (PRINIVIL) TABLET PO SCH (09:01)
[2021-10-23] MEDS: polyethylene glycoL POWDER 17 GM (MIRALAX) PACK PO SCH ×2 (09:01→20:07)
[2021-10-23] MEDS: morphine ER 30 MG (MS CONTIN) TAB PO SCH ×2 (09:01→20:07)
[2021-10-23] MEDS: meTOprolol SUCCINATE 100 MG (TOPROL XL) TAB PO SCH (09:01)
[2021-10-23] MEDS: amLODIPine 10 MG (NORVASC) TAB PO SCH (09:01)
[2021-10-23] MEDS: SENNA W/DOCUSATE (SENOKOT S) TABLET PO SCH (09:02)
[2021-10-23] MEDS: guaiFENesin/DM (ROBITUSSIN DM) 10 ML UDC PO PRN ×3 (09:10→20:15)
--- NOTE | 2021-10-23 10:22 | Physical Therapy Daily Note ---
PT Daily Note-Current Subjective Patient agrees to PT. Patient reports she is feeling some better today. Pain Numeric Pain Scale: 10-Worst Possible Pain Location: Lower Location Body Site: Back Pain Description: Pressure Mental Status Patient Orientation: Normal For Age Transfers SCALE: Activities may be completed with or without assistive devices. 2-Lkwlmwkpuf-ugwtxxx completes the activity by him/herself with no assistance from a helper. 5-Set-up or Clean-up Assistance-helper sets up or cleans up; patient completes activity. [place] assists only prior to or following the activity. 4-Supervision or Touching Assistance-helper provides verbal cues and/or touc nela/steadying and/or contact guard assistance as patient completes activity. Assistance may be provided throughout the activity or intermittently. 3-Partial/Moderate Assistance-helper does LESS THAN HALF the effort. [place] lifts, holds or supports trunk or limbs, but provides less than half the effort. 2-Substantial/Maximal Assistance-helper does MORE THAN HALF the effort. [place] lifts or holds trunk or limbs and provides more than half the effort. 9-Tgnunyrfl-ssidqi does ALL the effort. Patient does none of the effort to complete the activity. Or, the assistance of 2 or more helpers is required for the patient to complete the activity. If activity was not attempted, code reason: 7-Patient Refused. 9-Not Applicable-not attempted and the patient did not perform the activity before the current illness, exacerbation or injury. 10-Not Attempted due to Environmental Limitations-(lack of equipment, weather restraints, etc.). 88-Not Attempted due to Medical Conditions or Safety Concerns. Lying to Sitting/Side of Bed(Q: 4 Sit to Stand (QC): 3 Chair/Yma-rg-Dddju Xfer(QC): 3 Gait Training Does the Patient Walk?: Yes Distance: 25' Walk 10 feet (QC): 3 Gait Assistive Device: FWW very slow, slightly unsteady gait sequence with PT advancing FWW due to weakness Assessment Patient continues to tolerated minimal activity due to LBP. PT to continue to increase activity as tolerated by patient. PT Short Term Goals Short Term Goals Time Frame: Oct 29, 2021 Roll Left & Right: 4 Sit to lyin Lying to sitting on side of be: 4 Sit to stand: 5 Chair/eny-pk-gzrgd transfer: 6 Toilet transfer: 6 Walk 10 feet: 5 Walk 50 feet with two turns: 5 Walk 150 feet: 5 PT Half-Way Goals Net Front End Developer Goals PT Net Front End Developer Goals Time Frame: Nov 21, 2021 Roll Left & Right (QC): 6 Sit to Lying (QC): 6 Lying-Sitting on Side/Bed(QC): 6 Sit to Stand (QC): 6 Chair/Tla-tf-Dedfs Xfer(QC): 6 Toilet Transfer (QC): 6 Does the Patient Walk: Yes Walk 10 feet (QC): 6 Walk 50ft with 2 Turns (QC): 6 Walk 150 ft (QC): 6 1 Step (curb) (QC): 4 4 Steps (QC): 4 12 Steps (QC): 4 Picking up an Object (QC): 4 Does the Pt use WC or Scooter?: No PT Plan Treatment/Plan Treatment Plan: Continue Plan of Care Treatment Plan: Bed Mobility, Education, Functional Activity Yue, Functional Strength, Gait, Safety, Therapeutic Exercise, Transfers Treatment Duration: Nov 21, 2021 Frequency: 5 times per week Estimated Hrs Per Day: .25 hour per day Patient and/or Family Agrees t: Yes Time/GCodes Time In: 925 Time Out: 938 Total Billed Treatment Time: 13 Total Billed Treatment 1 visit FA 13 min KELVIN CALVO PT Oct 23, 2021 10:22
--- NOTE | 2021-10-23 11:18 | Occ Therapy Progress Note ---
Therapy Progress Note OT tx attempted, pt states she felt like she was doing better earlier today, but now isn't doing well. OT encouraged pt to participate in OT tx to increase strength, pt refused. Pt indicates she was already up this AM with PT and doesn't want to do anything right now. OT educated pt on importance of OT, but she continued to decline tx. Pt states she will just refuse PT tomorrow in order to participate with OT. OT educated pt on rehab process and the importance of participating with OT and PT. OT will attempt tx again at next available time. 1, refusal 1059 VERNELL FERRER OT Oct 23, 2021 11:18
[2021-10-23 11:29] VITALS: BP 168/77
--- NOTE | 2021-10-23 11:29 | Diagnostic Imaging Report ---
EXAMINATION: Chest, one view. HISTORY: Short of breath. COMPARISON: 09/13/2021. FINDINGS: A right-sided port catheter is present with the tip in the superior vena cava. Loop recorder projects over the heart. No pleural effusion or pneumothorax. No edema or pneumonia. Heart size is normal. IMPRESSION: 1. Clear lungs. Dictated by: Dictated on workstation # [id number]
--- NOTE | 2021-10-23 11:53 | Progress Note - Hospitalist ---
Subjective HPI/CC On Admission Date Seen by Provider: Oct 23, 2021 Time Seen by Provider: 11:10 Chief complaint: Hyperglycemia with back pain History of present illness: This is a 61-year-old white female who has a history of DKA brittle diabetes who presents to the ER with complaints of abdominal pain back pain and weakness. She fell sustaining compression fractures on Halloween and is struggling with the pain ever since. She was found to have severe hyperglycemia of 600 but no DKA meeting criteria for insulin drip for non-DKA status. We will restart her home medication and pain medication. Subjective/Events-last exam Pt doing okay Hgb 8.1 Cough prompted CXR which was negative Awaiting [facility] Awaiting setup for biopsy of spine Review of Systems General: Fatigue, Malaise Musculoskeletal: back pain Focused Exam Time of Focused Exam: 06:55 Objective Exam Vital Signs Vital Signs Date Time Temp Pulse Resp B/P (MAP) Pulse Ox O2 Delivery O2 Flow Rate FiO2 10/24/21 04:32 36.8 64 21 166/70 (102) 97 Nasal Cannula 2.00 Capillary Refill : Less Than 3 Seconds General Appearance: No Apparent Distress, WD/WN, Chronically ill Respiratory: Lungs Clear, Normal Breath Sounds Cardiovascular: Regular Rate, Rhythm Neurologic/Psychiatric: Alert, Oriented x3, No Motor/Sensory Deficits, Normal Mood/Affect Results/Procedures Lab Laboratory Tests 10/23/21 05:15 10/24/21 04:10 Patient resulted labs reviewed. 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
[2021-10-23 15:36] VITALS: BP 162/75
[2021-10-23 19:21] VITALS: BP 164/72
[2021-10-23] MEDS: rOPINIRole 0.25 MG (REQUIP) TAB PO SCH (20:07)
[2021-10-24 00:19] VITALS: BP 132/64
[2021-10-24 04:22] LABS: BASOPHILS # (AUTO) 0.1 10^3/uL (0.0-0.1); BASOPHILS % (AUTO) 1 % (0-10); EOSINOPHILS # (AUTO) 0.3 10^3/uL (0.0-0.3); EOSINOPHILS % (AUTO) 3 % (0-10); HEMATOCRIT 26 % (35-52); HEMOGLOBIN 8.1 g/dL (11.5-16.0); LYMPHOCYTES # (AUTO) 2.7 10^3/uL (1.0-4.0); LYMPHOCYTES % (AUTO) 26 % (12-44); MEAN CORPUSCULAR HEMOGLOBIN 28 pg (25-34); MEAN CORPUSCULAR HGB CONC 32 g/dL (32-36); MEAN CORPUSCULAR VOLUME 90 fL (80-99); MEAN PLATELET VOLUME 9.2 fL (9.0-12.2); MONOCYTES # (AUTO) 0.7 10^3/uL (0.0-1.0); MONOCYTES % (AUTO) 7 % (0-12); NEUTROPHILS # (AUTO) 6.4 10^3/uL (1.8-7.8); NEUTROPHILS % (AUTO) 62 % (42-75); PLATELET COUNT 399 10^3/uL (130-400); WHITE BLOOD COUNT 10.3 10^3/uL (4.3-11.0)
[2021-10-24 04:32] VITALS: BP 166/70
[2021-10-24 04:40] LABS: ALBUMIN 2.3 GM/DL (3.2-4.5)
[2021-10-24 04:42] LABS: CALCIUM 8.5 MG/DL (8.5-10.1)
[2021-10-24 04:43] LABS: TOTAL PROTEIN 6.2 GM/DL (6.4-8.2)
[2021-10-24 04:45] LABS: BILIRUBIN,TOTAL 0.3 MG/DL (0.1-1.0)
[2021-10-24 04:47] LABS: CREATININE SERUM 1.29 MG/DL (0.60-1.30)
[2021-10-24] MEDS: PANTOPRAZOLE 40 MG (PROTONIX) TAB PO SCH ×2 (05:22→16:20)
[2021-10-24] MEDS: inSUlin ASPART (NovoLOG) 1 UNIT/0.01 ML (CHARGE PER UNIT) SC SCH ×4 (05:22→20:42)
[2021-10-24] MEDS: polyethylene glycoL POWDER 17 GM (MIRALAX) PACK PO SCH ×2 (05:22→20:45)
[2021-10-24] MEDS: SUCRALFATE 1 GM (CARAFATE) TAB PO SCH ×4 (05:22→20:41)
[2021-10-24 08:01] VITALS: BP 155/67
[2021-10-24] MEDS: amLODIPine 10 MG (NORVASC) TAB PO SCH (09:02)
[2021-10-24] MEDS: SENNA W/DOCUSATE (SENOKOT S) TABLET PO SCH (09:02)
[2021-10-24] MEDS: GABAPENTIN 400 MG (NEURONTIN) CAP PO SCH ×2 (09:02→20:41)
[2021-10-24] MEDS: meTOprolol SUCCINATE 100 MG (TOPROL XL) TAB PO SCH (09:03)
[2021-10-24] MEDS: morphine ER 30 MG (MS CONTIN) TAB PO SCH ×2 (09:03→20:41)
[2021-10-24] MEDS: METHOCARBAMOL 750 MG (ROBAXIN) TAB PO SCH ×4 (09:03→20:41)
[2021-10-24] MEDS: lisINopril 20 MG (PRINIVIL) TABLET PO SCH (09:03)
[2021-10-24] MEDS: guaiFENesin/DM (ROBITUSSIN DM) 10 ML UDC PO PRN ×3 (09:52→18:52)
[2021-10-24] MEDS: ENOXAPARIN 40 MG/0.4 ML (LOVENOX) SYR SC SCH (09:53)
--- NOTE | 2021-10-24 10:12 | Physical Therapy Daily Note ---
PT Daily Note-Current Subjective Patient in bed stating, "I can't move. I feel like my spine is going to break." Patient did agree to attempt, with PT assist, to sit EOB. Mental Status Patient Orientation: Normal For Age Transfers SCALE: Activities may be completed with or without assistive devices. 2-Vsdiwntffc-qvjezsp completes the activity by him/herself with no assistance from a helper. 5-Set-up or Clean-up Assistance-helper sets up or cleans up; patient completes activity. [place] assists only prior to or following the activity. 4-Supervision or Touching Assistance-helper provides verbal cues and/or touching/steadying and/or contact guard assistance as patient completes activity. Assistance may be provided throughout the activity or intermittently. 3-Partial/Moderate Assistance-helper does LESS THAN HALF the effort. [place] lifts, holds or supports trunk or limbs, but provides less than half the effort. 2-Substantial/Maximal Assistance-helper does MORE THAN HALF the effort. [place] lifts or holds trunk or limbs and provides more than half the effort. 3-Mmsazymsa-jtssgz does ALL the effort. Patient does none of the effort to complete the activity. Or, the assistance of 2 or more helpers is required for the patient to complete the activity. If activity was not attempted, code reason: 7-Patient Refused. 9-Not Applicable-not attempted and the patient did not perform the activity before the current illness, exacerbation or injury. 10-Not Attempted due to Environmental Limitations-(lack of equipment, weather restraints, etc.). 88-Not Attempted due to Medical Conditions or Safety Concerns. Sit to Lying (QC): 1 Lying to Sitting/Side of Bed(Q: 1 Assessment Patient unable to tolerate mobility/exercise on this date. Patient yelled and cried in back patient with PT assist with supine<>sit. Patient supine in bed with RN notified of patient increase c/o back pain. PT Short Term Goals Short Term Goals Time Frame: Oct 29, 2021 Roll Left & Right: 4 Sit to lyin Lying to sitting on side of be: 4 Sit to stand: 5 Chair/kas-fn-qmxlx transfer: 6 Toilet transfer: 6 Walk 10 feet: 5 Walk 50 feet with two turns: 5 Walk 150 feet: 5 PT Correctional Supervisor Lieutenant Goals Longterm Goals PT Longterm Goals Time Frame: Nov 21, 2021 Roll Left & Right (QC): 6 Sit to Lying (QC): 6 Lying-Sitting on Side/Bed(QC): 6 Sit to Stand (QC): 6 Chair/Mgp-uq-Yjalw Xfer(QC): 6 Toilet Transfer (QC): 6 Does the Patient Walk: Yes Walk 10 feet (QC): 6 Walk 50ft with 2 Turns (QC): 6 Walk 150 ft (QC): 6 1 Step (curb) (QC): 4 4 Steps (QC): 4 12 Steps (QC): 4 Picking up an Object (QC): 4 Does the Pt use WC or Scooter?: No PT Plan Treatment/Plan Treatment Plan: Continue Plan of Care Treatment Plan: Bed Mobility, Education, Functional Activity Yue, Functional Strength, Gait, Safety, Therapeutic Exercise, Transfers Treatment Duration: Nov 21, 2021 Frequency: 5 times per week Estimated Hrs Per Day: .25 hour per day Patient and/or Family Agrees t: Yes Time/GCodes Time In: 909 Time Out: 920 Total Billed Treatment Time: 11 Total Billed Treatment 1 visit FA 11 min KELVIN CALVO PT Oct 24, 2021 10:12
--- NOTE | 2021-10-24 11:22 | Progress Note - Hospitalist ---
Subjective HPI/CC On Admission Date Seen by Provider: Oct 24, 2021 Time Seen by Provider: 11:00 Chief complaint: Hyperglycemia with back pain History of present illness: This is a 61-year-old white female who has a history of DKA brittle diabetes who presents to the ER with complaints of abdominal pain back pain and weakness. She fell sustaining compression fractures on Halloween and is struggling with the pain ever since. She was found to have severe hyperglycemia of 600 but no DKA meeting criteria for insulin drip for non-DKA status. We will restart her home medication and pain medication. Subjective/Events-last exam Pt doing okay On room air now Has a lot of pain issues Awaiting usp placement No other falls Review of Systems General: Fatigue, Malaise Musculoskeletal: back pain, leg pain Focused Exam Time of Focused Exam: 06:55 Objective Exam Vital Signs Vital Signs Date Time Temp Pulse Resp B/P (MAP) Pulse Ox O2 Delivery O2 Flow Rate FiO2 10/25/21 04:00 36.5 80 22 185/90 (121) 96 Nasal Cannula 1.00 Capillary Refill : Less Than 3 Seconds General Appearance: No Apparent Distress, WD/WN, Chronically ill Respiratory: Lungs Clear, Normal Breath Sounds Cardiovascular: Regular Rate, Rhythm Neurologic/Psychiatric: Alert, Oriented x3 Results/Procedures Lab Laboratory Tests 10/25/21 05:25 Patient resulted labs reviewed. 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
[2021-10-24 11:43] VITALS: BP 159/74
--- NOTE | 2021-10-24 13:49 | Occupational Ther Daily Note ---
OT Current Status-Daily Note Subjective Pt laying in bed, requests assistance with set up of her meal. Pt cries out in pain with movement and coughing. ADL-Treatment Therapy Code Descriptions/Definitions Functional [place] Measure: 0=Not Assessed/NA 4=Minimal Assistance 1=Total Assistance 5=Supervision or Setup 2=Maximal Assistance 6=Modified [place] 3=Moderate Assistance 7=Complete IndependenceSCALE: Activities may be completed with or without assistive devices. 8-Swontjxeel-fvsxytj completes the activity by him/herself with no assistance from a helper. 5-Set-up or Clean-up Assistance-helper sets up or cleans up; patient completes activity. [place] assists only prior to or following the activity. 4-Supervision or Touching Assistance-helper provides verbal cues and/or touching/steadying and/or contact guard assistance as patient completes activity. Assistance may be provided throughout the activity or intermittently. 3-Partial/Moderate Assistance-helper does LESS THAN HALF the effort. [place] lifts, holds or supports trunk or limbs, but provides less than half the effort. 2-Substantial/Maximal Assistance-helper does MORE THAN HALF the effort. [place] lifts or holds trunk or limbs and provides more than half the effort. 6-Zlxnsrefp-xcpjzm does ALL the effort. Patient does none of the effort to complete the activity. Or, the assistance of 2 or more helpers is required for the patient to complete the activity. If activity was not attempted, code reason: 7-Patient Refused. 9-Not Applicable-not attempted and the patient did not perform the activity before the current illness, exacerbation or injury. 10-Not Attempted due to Environmental Limitations-(lack of equipment, weather restraints, etc.). 88-Not Attempted due to Medical Conditions or Safety Concerns. Eating (QC): 5 Other Treatment Pt laying in bed, asks this therapist to assist in setting up her meal. Pt laying in bed, but refuses repositioning as it causes increased pain. OT educated pt on importance of sitting upright with eating and drinking in order to protect the airway. Pt verbalized understanding but continued to refuse repositioning. OT removed lid from pt's tray, cut sandwich in half, placed butter on carrots, and put creamer in her coffee. Pt able to grab a carrot slice from her tray with fingers and eat after set up assist of the tray. Pt declined any OOB activity, again declined repositioning, and declined ADLs and exercises. Post tx, pt in bed, call light in reach and all needs met. Education OT Patient Education: Correct positioning, Modified ADL techniques, Progress toward Goal/Update tx plan, Purpose of tx/functional activities, Rehab process Teaching Recipient: Patient Teaching Methods: Discussion Response to Teaching: Verbalize Understanding, Reinforcement Needed OT Long-Term Goals Backup Administrative Coordinator Goals Time Frame: Oct 31, 2021 Eating (QC): 6 Oral Hygiene (QC): 6 Toileting Hygiene (QC): 4 Shower/Bathe Self (QC): 4 Upper Body Dressing (QC): 5 Lower Body Dressing (QC): 4 On/Off Footwear (QC): 4 Additional Goals: 1-Demonstrate ADL Tasks, 2-Verbalize Understanding, 3- ImproveStrength/Yue 1=Demonstrate adherence to instructed precautions during ADL tasks. 2=Patient will verbalize/demonstrate understanding of assistive devices/modifications for ADL. 3=Patient will improve strength/tolerance for activity to enable patient to perform ADL's. OT Education/Plan Problem List/Assessment Assessment: Decreased Activ Tolerance, Decreased UE Strength, Impaired Funct Balance, Impaired I ADL's, Impaired Self-Care Skills Discharge Recommendations Plan/Recommendations: Continue POC Treatment Plan/Plan of Care Patient would benefit from OT for education, treatment and training to promote independence in ADL's, mobility, safety and/or upper extremity function for ADL's. Plan of Care: ADL Retraining, Functional Mobility, UE Funct Exercise/Act Treatment Duration: Oct 31, 2021 Frequency: 3 times per week (3-5 times per week) Rehab Potential: Guarded Time/GCodes Start Time: 13:33 Stop Time: 13:43 Total Time Billed (hr/min): 10 Billed Treatment Time 1, ADL VERNELL FERRER OT Oct 24, 2021 13:49
[2021-10-24 15:50] VITALS: BP 163/78
[2021-10-24 19:40] VITALS: BP 167/78
[2021-10-24] MEDS: rOPINIRole 0.25 MG (REQUIP) TAB PO SCH (20:41)
[2021-10-25] VITALS (7 sets, daily range): BP systolic 145–193; BP diastolic 75–90
[2021-10-25] MEDS: lisINopril 20 MG (PRINIVIL) TABLET PO SCH (05:16)
[2021-10-25] MEDS: amLODIPine 10 MG (NORVASC) TAB PO SCH (05:16)
[2021-10-25] MEDS: PANTOPRAZOLE 40 MG (PROTONIX) TAB PO SCH ×2 (05:16→16:01)
[2021-10-25] MEDS: SUCRALFATE 1 GM (CARAFATE) TAB PO SCH ×4 (05:17→20:52)
[2021-10-25] MEDS: meTOprolol SUCCINATE 100 MG (TOPROL XL) TAB PO SCH (05:17)
[2021-10-25 05:33] LABS: BASOPHILS # (AUTO) 0.1 10^3/uL (0.0-0.1); BASOPHILS % (AUTO) 1 % (0-10); EOSINOPHILS # (AUTO) 0.4 10^3/uL (0.0-0.3); EOSINOPHILS % (AUTO) 4 % (0-10); HEMATOCRIT 29 % (35-52); HEMOGLOBIN 9.3 g/dL (11.5-16.0); LYMPHOCYTES % (AUTO) 26 % (12-44); MEAN CORPUSCULAR HEMOGLOBIN 29 pg (25-34); MEAN CORPUSCULAR HGB CONC 32 g/dL (32-36); MEAN CORPUSCULAR VOLUME 88 fL (80-99); MEAN PLATELET VOLUME 9.3 fL (9.0-12.2); MONOCYTES # (AUTO) 0.7 10^3/uL (0.0-1.0); MONOCYTES % (AUTO) 6 % (0-12); NEUTROPHILS # (AUTO) 7.2 10^3/uL (1.8-7.8); NEUTROPHILS % (AUTO) 62 % (42-75); PLATELET COUNT 450 10^3/uL (130-400); WHITE BLOOD COUNT 11.6 10^3/uL (4.3-11.0)
[2021-10-25] MEDS: inSUlin ASPART (NovoLOG) 1 UNIT/0.01 ML (CHARGE PER UNIT) SC SCH ×4 (06:02→20:52)
[2021-10-25] MEDS: guaiFENesin/DM (ROBITUSSIN DM) 10 ML UDC PO PRN ×3 (06:13→20:57)
[2021-10-25 06:58] LABS: ALBUMIN 2.6 GM/DL (3.2-4.5)
[2021-10-25 07:00] LABS: CALCIUM 8.9 MG/DL (8.5-10.1)
[2021-10-25 07:01] LABS: TOTAL PROTEIN 6.9 GM/DL (6.4-8.2)
[2021-10-25 07:03] LABS: BILIRUBIN,TOTAL 0.3 MG/DL (0.1-1.0)
[2021-10-25 07:04] LABS: CREATININE SERUM 1.18 MG/DL (0.60-1.30)
[2021-10-25] MEDS: METHOCARBAMOL 750 MG (ROBAXIN) TAB PO SCH ×4 (08:22→20:52)
[2021-10-25] MEDS: SENNA W/DOCUSATE (SENOKOT S) TABLET PO SCH (08:22)
[2021-10-25] MEDS: morphine ER 30 MG (MS CONTIN) TAB PO SCH ×2 (08:22→20:51)
[2021-10-25] MEDS: polyethylene glycoL POWDER 17 GM (MIRALAX) PACK PO SCH ×2 (08:23→20:51)
[2021-10-25] MEDS: GABAPENTIN 400 MG (NEURONTIN) CAP PO SCH ×2 (08:26→20:52)
--- NOTE | 2021-10-25 09:14 | Progress Note - Hospitalist ---
Subjective HPI/CC On Admission Date Seen by Provider: Oct 25, 2021 Time Seen by Provider: 11:00 Chief complaint: Hyperglycemia with back pain History of present illness: This is a 61-year-old white female who has a history of DKA brittle diabetes who presents to the ER with complaints of abdominal pain back pain and weakness. She fell sustaining compression fractures on Halloween and is struggling with the pain ever since. She was found to have severe hyperglycemia of 600 but no DKA meeting criteria for insulin drip for non-DKA status. We will restart her home medication and pain medication. Subjective/Events-last exam Patient about the same We will add fentanyl patch of 12 mcg to gain better control over pain Hemoglobin 9.3 Bowels are moving Review of Systems General: Fatigue, Malaise Musculoskeletal: back pain Neurological: Weakness Focused Exam Time of Focused Exam: 06:55 Objective Exam Vital Signs Vital Signs Date Time Temp Pulse Resp B/P (MAP) Pulse Ox O2 Delivery O2 Flow Rate FiO2 10/26/21 04:59 37.0 65 16 150/68 (95) 93 Nasal Cannula 2.00 Capillary Refill : Less Than 3 Seconds General Appearance: No Apparent Distress, WD/WN, Chronically ill Respiratory: Lungs Clear, Normal Breath Sounds Cardiovascular: Regular Rate, Rhythm Neurologic/Psychiatric: Alert, Oriented x3 Results/Procedures Lab Patient resulted labs reviewed. 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
--- NOTE | 2021-10-25 10:11 | Physical Therapy Progress Note ---
Therapy Progress Note Patient refused PT on this date due to uncontrolled back pain. Pain medication has been issued per RN report. PT to attempt Wednesday. 1 ref KELVIN CALVO PT Oct 25, 2021 10:11
[2021-10-25] MEDS: ENOXAPARIN 40 MG/0.4 ML (LOVENOX) SYR SC SCH (10:15)
[2021-10-25] MEDS ORDERED: fentaNYL PATCH 12 MCG (DURAGESIC) TD SCH (13:00)
[2021-10-25] MEDS: rOPINIRole 0.25 MG (REQUIP) TAB PO SCH (20:52)
[2021-10-26 04:59] VITALS: BP 150/68
[2021-10-26] MEDS: inSUlin ASPART (NovoLOG) 1 UNIT/0.01 ML (CHARGE PER UNIT) SC SCH ×4 (05:52→21:39)
[2021-10-26] MEDS: PANTOPRAZOLE 40 MG (PROTONIX) TAB PO SCH ×2 (05:52→16:59)
[2021-10-26] MEDS: SUCRALFATE 1 GM (CARAFATE) TAB PO SCH ×4 (05:52→19:50)
[2021-10-26 07:22] VITALS: BP 130/61
[2021-10-26] MEDS: GABAPENTIN 400 MG (NEURONTIN) CAP PO SCH ×2 (08:45→19:50)
[2021-10-26] MEDS: lisINopril 20 MG (PRINIVIL) TABLET PO SCH (08:47)
[2021-10-26] MEDS: morphine ER 30 MG (MS CONTIN) TAB PO SCH ×2 (08:47→19:50)
[2021-10-26] MEDS: guaiFENesin/DM (ROBITUSSIN DM) 10 ML UDC PO PRN (08:54)
[2021-10-26] MEDS: polyethylene glycoL POWDER 17 GM (MIRALAX) PACK PO SCH ×2 (09:02→19:46)
[2021-10-26] MEDS: SENNA W/DOCUSATE (SENOKOT S) TABLET PO SCH (09:05)
[2021-10-26] MEDS: meTOprolol SUCCINATE 100 MG (TOPROL XL) TAB PO SCH (09:05)
[2021-10-26] MEDS: METHOCARBAMOL 750 MG (ROBAXIN) TAB PO SCH ×4 (09:05→19:49)
[2021-10-26] MEDS: amLODIPine 10 MG (NORVASC) TAB PO SCH (09:05)
[2021-10-26 11:16] VITALS: BP 150/69
[2021-10-26] MEDS: ENOXAPARIN 40 MG/0.4 ML (LOVENOX) SYR SC SCH (11:52)
--- NOTE | 2021-10-26 12:31 | Progress Note - Hospitalist ---
Subjective HPI/CC On Admission Date Seen by Provider: Oct 26, 2021 Time Seen by Provider: 11:30 Chief complaint: Hyperglycemia with back pain History of present illness: This is a 61-year-old white female who has a history of DKA brittle diabetes who presents to the ER with complaints of abdominal pain back pain and weakness. She fell sustaining compression fractures on Halloween and is struggling with the pain ever since. She was found to have severe hyperglycemia of 600 but no DKA meeting criteria for insulin drip for non-DKA status. We will restart her home medication and pain medication. Subjective/Events-last exam Patient doing okay Fentanyl patch will be increased from 12-25 she thinks it is helping Remains on long-acting morphine and oxycodone as needed Review of Systems Musculoskeletal: back pain Focused Exam Time of Focused Exam: 06:55 Objective Exam Vital Signs Vital Signs Date Time Temp Pulse Resp B/P (MAP) Pulse Ox O2 Delivery O2 Flow Rate FiO2 10/26/21 16:00 37.2 78 18 143/68 (93) 94 Room Air 10/26/21 08:00 2.00 Capillary Refill : Less Than 3 Seconds General Appearance: No Apparent Distress, WD/WN, Chronically ill Respiratory: Lungs Clear Cardiovascular: Regular Rate, Rhythm Results/Procedures Lab Patient resulted labs reviewed. 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
[2021-10-26] MEDS ORDERED: FENTANYL PATCH REMOVAL TP ONE (12:59)
[2021-10-26] MEDS ORDERED: fentaNYL PATCH 25 MCG (DURAGESIC) TOP SCH (13:00)
[2021-10-26 16:00] VITALS: BP 143/68
[2021-10-26] MEDS: rOPINIRole 0.25 MG (REQUIP) TAB PO SCH (19:50)
[2021-10-26 20:00] VITALS: BP 147/71
[2021-10-26 23:19] VITALS: BP 139/67
[2021-10-27 04:45] LABS: BASOPHILS # (AUTO) 0.1 10^3/uL (0.0-0.1); BASOPHILS % (AUTO) 1 % (0-10); EOSINOPHILS # (AUTO) 0.4 10^3/uL (0.0-0.3); EOSINOPHILS % (AUTO) 5 % (0-10); HEMATOCRIT 27 % (35-52); HEMOGLOBIN 8.6 g/dL (11.5-16.0); LYMPHOCYTES # (AUTO) 3.2 10^3/uL (1.0-4.0); LYMPHOCYTES % (AUTO) 34 % (12-44); MEAN CORPUSCULAR HEMOGLOBIN 29 pg (25-34); MEAN CORPUSCULAR HGB CONC 32 g/dL (32-36); MEAN CORPUSCULAR VOLUME 89 fL (80-99); MEAN PLATELET VOLUME 9.3 fL (9.0-12.2); MONOCYTES # (AUTO) 0.6 10^3/uL (0.0-1.0); MONOCYTES % (AUTO) 7 % (0-12); NEUTROPHILS # (AUTO) 5.1 10^3/uL (1.8-7.8); NEUTROPHILS % (AUTO) 53 % (42-75); PLATELET COUNT 380 10^3/uL (130-400); WHITE BLOOD COUNT 9.5 10^3/uL (4.3-11.0)
[2021-10-27 05:05] LABS: ALBUMIN 2.4 GM/DL (3.2-4.5)
[2021-10-27 05:06] LABS: POTASSIUM 4.2 MMOL/L (3.6-5.0)
[2021-10-27 05:07] LABS: CALCIUM 8.6 MG/DL (8.5-10.1)
[2021-10-27 05:08] LABS: TOTAL PROTEIN 6.3 GM/DL (6.4-8.2)
[2021-10-27 05:10] LABS: BILIRUBIN,TOTAL 0.3 MG/DL (0.1-1.0)
[2021-10-27 05:12] LABS: CREATININE SERUM 1.22 MG/DL (0.60-1.30)
[2021-10-27] MEDS: inSUlin ASPART (NovoLOG) 1 UNIT/0.01 ML (CHARGE PER UNIT) SC SCH ×4 (05:15→22:01)
[2021-10-27] MEDS: SUCRALFATE 1 GM (CARAFATE) TAB PO SCH ×4 (05:17→21:14)
[2021-10-27] MEDS: PANTOPRAZOLE 40 MG (PROTONIX) TAB PO SCH ×2 (05:17→16:18)
[2021-10-27 08:34] VITALS: BP 125/70
[2021-10-27] MEDS: amLODIPine 10 MG (NORVASC) TAB PO SCH (08:44)
[2021-10-27] MEDS: morphine ER 30 MG (MS CONTIN) TAB PO SCH ×2 (08:44→21:15)
[2021-10-27] MEDS: GABAPENTIN 400 MG (NEURONTIN) CAP PO SCH ×2 (08:44→21:15)
[2021-10-27] MEDS: meTOprolol SUCCINATE 100 MG (TOPROL XL) TAB PO SCH (08:44)
[2021-10-27] MEDS: METHOCARBAMOL 750 MG (ROBAXIN) TAB PO SCH ×4 (08:44→21:14)
[2021-10-27] MEDS: lisINopril 20 MG (PRINIVIL) TABLET PO SCH (08:44)
[2021-10-27] MEDS: polyethylene glycoL POWDER 17 GM (MIRALAX) PACK PO SCH ×2 (08:49→22:01)
[2021-10-27] MEDS: SENNA W/DOCUSATE (SENOKOT S) TABLET PO SCH (08:49)
--- NOTE | 2021-10-27 10:38 | Physical Therapy Daily Note ---
PT Daily Note-Current Subjective Patient agrees to PT. Mental Status Patient Orientation: Normal For Age Attachments: Oxygen Transfers SCALE: Activities may be completed with or without assistive devices. 8-Rcuwggqgqe-sbyarsc completes the activity by him/herself with no assistance from a helper. 5-Set-up or Clean-up Assistance-helper sets up or cleans up; patient completes activity. [place] assists only prior to or following the activity. 4-Supervision or Touching Assistance-helper provides verbal cues and/or touching/steadying and/or contact guard assistance as patient completes activity. Assistance may be provided throughout the activity or intermittently. 3-Partial/Moderate Assistance-helper does LESS THAN HALF the effort. [place] lifts, holds or supports trunk or limbs, but provides less than half the effort. 2-Substantial/Maximal Assistance-helper does MORE THAN HALF the effort. [place] lifts or holds trunk or limbs and provides more than half the effort. 2-Bueopqbcf-hkrhoy does ALL the effort. Patient does none of the effort to complete the activity. Or, the assistance of 2 or more helpers is required for the patient to complete the activity. If activity was not attempted, code reason: 7-Patient Refused. 9-Not Applicable-not attempted and the patient did not perform the activity before the current illness, exacerbation or injury. 10-Not Attempted due to Environmental Limitations-(lack of equipment, weather restraints, etc.). 88-Not Attempted due to Medical Conditions or Safety Concerns. Roll Left & Right (QC): 1 attempted to sit EOB, however, patient yelled in back pain and ceased attempt requiring dependent assist for repositioning up in bed. Exercises Supine Ex: Ankle pumps, Heel Slides, Straight leg raise, Hip abd/add Supine Reps: 12 (AAROM) Assessment Patient tolerates minimal activity due to uncontrolled back pain with medication issued prior to PT by RN. PT will continue to increase activity as tolerated by patient. PT Short Term Goals Short Term Goals Time Frame: Oct 29, 2021 Roll Left & Right: 4 Sit to lyin Lying to sitting on side of be: 4 Sit to stand: 5 Chair/qfa-vq-mdwvz transfer: 6 Toilet transfer: 6 Walk 10 feet: 5 Walk 50 feet with two turns: 5 Walk 150 feet: 5 PT Prison Goals Electrical Fitter Goals PT Prison Goals Time Frame: Nov 21, 2021 Roll Left & Right (QC): 6 Sit to Lying (QC): 6 Lying-Sitting on Side/Bed(QC): 6 Sit to Stand (QC): 6 Chair/Gzn-cl-Pjlwz Xfer(QC): 6 Toilet Transfer (QC): 6 Does the Patient Walk: Yes Walk 10 feet (QC): 6 Walk 50ft with 2 Turns (QC): 6 Walk 150 ft (QC): 6 1 Step (curb) (QC): 4 4 Steps (QC): 4 12 Steps (QC): 4 Picking up an Object (QC): 4 Does the Pt use WC or Scooter?: No PT Plan Treatment/Plan Treatment Plan: Continue Plan of Care Treatment Plan: Bed Mobility, Education, Functional Activity Yue, Functional Strength, Gait, Safety, Therapeutic Exercise, Transfers Treatment Duration: Nov 21, 2021 Frequency: 5 times per week Estimated Hrs Per Day: .25 hour per day Patient and/or Family Agrees t: Yes Time/GCodes Time In: 947 Time Out: 1000 Total Billed Treatment Time: 13 Total Billed Treatment 1 visit EX 13 min KELVIN CALVO PT Oct 27, 2021 10:38
[2021-10-27] MEDS: ENOXAPARIN 40 MG/0.4 ML (LOVENOX) SYR SC SCH (11:11)
--- NOTE | 2021-10-27 13:50 | Occ Therapy Progress Note ---
Therapy Progress Note OT tx attempted, pt currently in bed eating lunch and putting butter on her sweet potato independently. Pt declined OT services at this time, as she is eating and hasn't been able to finish a meal without being interrupted. OT educated pt on purpose and benefit of OT, but she continued to refuse. Pt requests OT to attempt again tomorrow, as she may feel better and feel like participating. OT will attempt again tomorrow per pt request. 1, refusal [id number] VERNELL FERRER OT Oct 27, 2021 13:50
[2021-10-27 16:02] VITALS: BP 161/73
--- NOTE | 2021-10-27 20:55 | Progress Note ---
Subjective Subjective/Events-last exam Patient states that her pain is not very well controlled. Tolerating PO diet but has decreased appetite. Review of Systems General: Fatigue, Malaise Pulmonary: No Dyspnea, No Cough Cardiovascular: No: Chest Pain, Palpitations, Edema Gastrointestinal: Other (decreased appetite); No: Nausea, Vomiting, Abdominal Pain, Diarrhea, Constipation Musculoskeletal: back pain Neurological: Weakness, Incoordination; No: Confusion Focused Exam Time of Focused Exam: 06:55 Objective Exam Last Set of Vital Signs Vital Signs Date Time Temp Pulse Resp B/P (MAP) Pulse Ox O2 Delivery O2 Flow Rate FiO2 10/27/21 19:32 96 Nasal Cannula 2.00 10/27/21 16:02 37.5 73 22 161/73 (102) Capillary Refill : Less Than 3 Seconds I&O Intake and Output 10/27/21 00:00 Intake Total 968 ml Output Total 400 ml Balance 568 ml Intake Oral 968 ml Output Urine Total 400 ml # Voids 3 General: Alert, Oriented X3, Mild Distress (with any repositioning due to back pain) Lungs: Clear to Auscultation, Normal Air Movement Heart: Regular Rate, No Murmurs Abdomen: Normal Bowel Sounds, Soft, No Tenderness, No Masses Extremities: No Edema, No Tenderness/Swelling Neuro: Normal Speech Results/Procedures Lab Laboratory Tests 10/26/21 21:01: Glucometer 230H 10/27/21 04:37: White Blood Count 9.5, Red Blood Count 3.02L, Hemoglobin 8.6L, Hematocrit 27L, Mean Corpuscular Volume 89, Mean Corpuscular Hemoglobin 29, Mean Corpuscular Hemoglobin Concent 32, Red Cell Distribution Width 16.1H, Platelet Count 380, Mean Platelet Volume 9.3, Immature Granulocyte % (Auto) 1, Neutrophils (%) (Auto) 53, Lymphocytes (%) (Auto) 34, Monocytes (%) (Auto) 7, Eosinophils (%) (Auto) 5, Basophils (%) (Auto) 1, Neutrophils # (Auto) 5.1, Lymphocytes # (Auto) 3.2, Monocytes # (Auto) 0.6, Eosinophils # (Auto) 0.4H, Basophils # (Auto) 0.1, Immature Granulocyte # (Auto) 0.1, Sodium Level 139, Potassium Level 4.2, Chloride Level 106, Carbon Dioxide Level 24, Anion Gap 9, Blood Urea Nitrogen 20H, Creatinine 1.22, Estimat Glomerular Filtration Rate 45, BUN/Creatinine Ratio 16, Glucose Level 145H, Calcium Level 8.6, Corrected Calcium 9.9, Total Bilirubin 0.3, Aspartate Amino Transf (AST/SGOT) 10, Alanine Aminotransferase (ALT/SGPT) 8, Alkaline Phosphatase 59, Total Protein 6.3L, Albumin 2.4L 10/27/21 11:00: Glucometer 208H 10/27/21 16:08: Glucometer 193H 10/27/21 20:32: Glucometer 136H Assessment/Plan Assessment/Plan (1) Compression fracture of L2 Status: Acute Assessment & Plan: CT spine on arrival with lytic lesion at L2 with compression fracture and follow up MRI with marrow replacing lesion present. This is presumably malignant, suspected hematologic vs. GI, with workup thus far notable for elevated CEA and CA-125. Not up to date on mammography or lung cancer screening. Will need biopsy for diagnosis, planning for CT guided biopsy via IR in [place] either 09/22 or 09/24 pending insurance prior authorization. -Working to schedule biopsy/kyphoplasty early next week -Patient needs DC'd >24 hours prior to this for it to be completed as an outpatient 10/27: MRI confirms lytic lesion, pain uncontrolled and has required increase in fentynl patch Qualifiers: Qualified Codes: S32.020A - Wedge compression fracture of second lumbar vertebra, initial encounter for closed fracture (2) Acute exacerbation of chronic low back pain Status: Acute Assessment & Plan: Secondary to #1. On high doses of outpatient oxycodone with difficult pain control in setting of fracture. 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 -Decrease to 60 mg morphine ER BID today -Continue 10 mg morphine IR Q6H PRN -Add robaxin 750 mg QID for spasms -Kyphoplasty next week -Needs to follow up with pain management outpatient given broken pain contracts with [facility] 10/27: kyphoplasty needed, trying to get pain better controlled in order to get patient to procedure (3) Lytic bone lesions on xray Status: Acute (4) Uncontrolled insulin dependent diabetes mellitus Status: Acute Assessment & Plan: History of IDDM presented with BGL near 600 requiring brief insulin drip, now transitioned to basal-bolus regimen with subsequent hypogylcemia 10/13 & 10/14 requiring dextrose infusion. Overnight, received D50 x 2 after receiving levemir 15 units last night with glucose stable without infusion this AM. -Levemir 10 U QHS -SSI 1 10/27: Blood sugars fairly well controlled, continue home meds (5) HTN (hypertension) Status: Chronic Assessment & Plan: Controlled on amlodipine 10 mg, lisinopril 20 mg, metoprolol 100 mg daily. Qualifiers: Qualified Codes: I10 - Essential (primary) hypertension (6) Iron deficiency anemia due to chronic blood loss Status: Acute Assessment & Plan: Hemoglobin at 7 - 8 with iron studies consistent with both iron deficiency and anemia of chronic disease. -Continue venofer 200 mg Q48H -Transfuse <7 (7) Restless leg syndrome Status: Acute Assessment & Plan: Continue home ropinirole and will give venofer for iron deficiency. Clinical Quality Measures Smoking Cessation Counseling: Counseling-Symptomatic: 3-10 Minutes ALEXX ZIMMER MD Oct 27, 2021 20:55
[2021-10-27] MEDS: rOPINIRole 0.25 MG (REQUIP) TAB PO SCH (21:14)
[2021-10-28] VITALS: BP 132/69
[2021-10-28] MEDS: SUCRALFATE 1 GM (CARAFATE) TAB PO SCH ×2 (06:09→11:52)
[2021-10-28] MEDS: PANTOPRAZOLE 40 MG (PROTONIX) TAB PO SCH (06:09)
[2021-10-28] MEDS: inSUlin ASPART (NovoLOG) 1 UNIT/0.01 ML (CHARGE PER UNIT) SC SCH ×2 (06:11→11:42)
[2021-10-28 06:31] LABS: MEAN CORPUSCULAR VOLUME 90 fL (80-99); MONOCYTES # (AUTO) 0.6 10^3/uL (0.0-1.0)
[2021-10-28 06:33] LABS: BASOPHILS # (AUTO) 0.1 10^3/uL (0.0-0.1); BASOPHILS % (AUTO) 1 % (0-10); EOSINOPHILS # (AUTO) 0.4 10^3/uL (0.0-0.3); EOSINOPHILS % (AUTO) 5 % (0-10); HEMATOCRIT 28 % (35-52); HEMOGLOBIN 8.9 g/dL (11.5-16.0); LYMPHOCYTES # (AUTO) 2.7 10^3/uL (1.0-4.0); LYMPHOCYTES % (AUTO) 31 % (12-44); MEAN CORPUSCULAR HEMOGLOBIN 28 pg (25-34); MEAN CORPUSCULAR HGB CONC 32 g/dL (32-36); MEAN PLATELET VOLUME 10.1 fL (9.0-12.2); MONOCYTES % (AUTO) 7 % (0-12); NEUTROPHILS # (AUTO) 4.9 10^3/uL (1.8-7.8); NEUTROPHILS % (AUTO) 56 % (42-75); PLATELET COUNT 361 10^3/uL (130-400); WHITE BLOOD COUNT 8.8 10^3/uL (4.3-11.0)
[2021-10-28 06:38] LABS: ALBUMIN 2.4 GM/DL (3.2-4.5)
[2021-10-28 06:39] LABS: POTASSIUM 4.2 MMOL/L (3.6-5.0)
[2021-10-28 06:40] LABS: CALCIUM 8.6 MG/DL (8.5-10.1)
[2021-10-28 06:41] LABS: TOTAL PROTEIN 6.3 GM/DL (6.4-8.2)
[2021-10-28 06:43] LABS: BILIRUBIN,TOTAL 0.3 MG/DL (0.1-1.0)
[2021-10-28 06:45] LABS: CREATININE SERUM 1.22 MG/DL (0.60-1.30)
[2021-10-28 07:25] VITALS: BP 173/75
[2021-10-28] MEDS: SENNA W/DOCUSATE (SENOKOT S) TABLET PO SCH (08:57)
[2021-10-28] MEDS: morphine ER 30 MG (MS CONTIN) TAB PO SCH (08:57)
[2021-10-28] MEDS: METHOCARBAMOL 750 MG (ROBAXIN) TAB PO SCH ×2 (08:57→14:22)
[2021-10-28] MEDS: lisINopril 20 MG (PRINIVIL) TABLET PO SCH (08:57)
[2021-10-28] MEDS: GABAPENTIN 400 MG (NEURONTIN) CAP PO SCH (08:58)
[2021-10-28] MEDS: meTOprolol SUCCINATE 100 MG (TOPROL XL) TAB PO SCH (08:58)
[2021-10-28] MEDS: amLODIPine 10 MG (NORVASC) TAB PO SCH (08:58)
[2021-10-28] MEDS: polyethylene glycoL POWDER 17 GM (MIRALAX) PACK PO SCH (08:58)
--- NOTE | 2021-10-28 10:09 | Physical Therapy Daily Note ---
PT Daily Note-Current Subjective Patient request commode use. Crying in back patient with medication issued prior. Pain Numeric Pain Scale: 10-Worst Possible Pain Location: Lower Location Body Site: Back Pain Description: Sharp Mental Status Attachments: Oxygen Transfers SCALE: Activities may be completed with or without assistive devices. 7-Owweovgbpk-jielgug completes the activity by him/herself with no assistance from a helper. 5-Set-up or Clean-up Assistance-helper sets up or cleans up; patient completes activity. [place] assists only prior to or following the activity. 4-Supervision or Touching Assistance-helper provides verbal cues and/or touching/steadying and/or contact guard assistance as patient completes activity. Assistance may be provided throughout the activity or intermittently. 3-Partial/Moderate Assistance-helper does LESS THAN HALF the effort. [place] lifts, holds or supports trunk or limbs, but provides less than half the effort. 2-Substantial/Maximal Assistance-helper does MORE THAN HALF the effort. [place] lifts or holds trunk or limbs and provides more than half the effort. 2-Hgbvabbrh-suvjzf does ALL the effort. Patient does none of the effort to complete the activity. Or, the assistance of 2 or more helpers is required for the patient to complete the activity. If activity was not attempted, code reason: 7-Patient Refused. 9-Not Applicable-not attempted and the patient did not perform the activity before the current illness, exacerbation or injury. 10-Not Attempted due to Environmental Limitations-(lack of equipment, weather restraints, etc.). 88-Not Attempted due to Medical Conditions or Safety Concerns. Sit to Lying (QC): 4 (SBA) Lying to Sitting/Side of Bed(Q: 4 Sit to Stand (QC): 4 Toilet Transfer (QC): 4 use of FWW for transfers with patient side stepping up toward HOB after commode use. Assessment Patient tolerates minimal activity and returned to bed sidelying left. 4 rails up and needs met. PT Short Term Goals Short Term Goals Time Frame: Oct 29, 2021 Roll Left & Right: 4 Sit to lyin Lying to sitting on side of be: 4 Sit to stand: 5 Chair/zvo-se-mcgrq transfer: 6 Toilet transfer: 6 Walk 10 feet: 5 Walk 50 feet with two turns: 5 Walk 150 feet: 5 PT Mcfp Goals Mcfp Goals PT Mcfp Goals Time Frame: Nov 21, 2021 Roll Left & Right (QC): 6 Sit to Lying (QC): 6 Lying-Sitting on Side/Bed(QC): 6 Sit to Stand (QC): 6 Chair/Gxj-uf-Dvzlm Xfer(QC): 6 Toilet Transfer (QC): 6 Does the Patient Walk: Yes Walk 10 feet (QC): 6 Walk 50ft with 2 Turns (QC): 6 Walk 150 ft (QC): 6 1 Step (curb) (QC): 4 4 Steps (QC): 4 12 Steps (QC): 4 Picking up an Object (QC): 4 Does the Pt use WC or Scooter?: No PT Plan Treatment/Plan Treatment Plan: Continue Plan of Care Treatment Plan: Bed Mobility, Education, Functional Activity Yue, Functional Strength, Gait, Safety, Therapeutic Exercise, Transfers Treatment Duration: Nov 21, 2021 Frequency: 5 times per week Estimated Hrs Per Day: .25 hour per day Patient and/or Family Agrees t: Yes Time/GCodes Time In: 938 Time Out: 948 Total Billed Treatment Time: 10 Total Billed Treatment 1 visit FA 10 min KELVIN CALVO PT Oct 28, 2021 10:09
[2021-10-28] MEDS: ENOXAPARIN 40 MG/0.4 ML (LOVENOX) SYR SC SCH (10:26)
--- NOTE | 2021-10-28 11:05 | Discharge Summary ---
Discharge Summary Reconcile Patient Problems Problems Reviewed?: Yes Hospital Course Hospital Course Date of Admission: Oct 11, 2021 at 02:00 Admission Diagnosis : [facility] Date of Discharge: 10/28/21 Discharge Diagnosis: Acute Back Pain Lytic Lesion in Lumbar Spine IDDM Hospital Course: 61 yo F with acute back pain with new compression fracture near a lytic lesion. MRI confirmed lytic lesion. Patient needs outpatient f.u with ortho in [place] for kyphoplasty and bx of lytic lesion. Patient to be d/c to SNF today. Labs and Pending Lab Test: Laboratory Tests 10/27/21 16:08: Glucometer 193H 10/27/21 20:32: Glucometer 136H 10/28/21 05:53: Glucometer 73 10/28/21 06:00: White Blood Count 8.8, Red Blood Count 3.13L, Hemoglobin 8.9L, Hematocrit 28L, Mean Corpuscular Volume 90, Mean Corpuscular Hemoglobin 28, Mean Corpuscular Hem oglobin Concent 32, Red Cell Distribution Width 16.1H, Platelet Count 361, Mean Platelet Volume 10.1, Immature Granulocyte % (Auto) 1, Neutrophils (%) (Auto) 56, Lymphocytes (%) (Auto) 31, Monocytes (%) (Auto) 7, Eosinophils (%) (Auto) 5, Basophils (%) (Auto) 1, Neutrophils # (Auto) 4.9, Lymphocytes # (Auto) 2.7, Monocytes # (Auto) 0.6, Eosinophils # (Auto) 0.4H, Basophils # (Auto) 0.1, Immature Granulocyte # (Auto) 0.1, Percent Immature Platelet Fraction 1.7, Sodiu m Level 137, Potassium Level 4.2, Chloride Level 104, Carbon Dioxide Level 24, Anion Gap 9, Blood Urea Nitrogen 22H, Creatinine 1.22, Estimat Glomerular Filtration Rate 45, BUN/Creatinine Ratio 18, Glucose Level 74, Calcium Level 8.6, Corrected Calcium 9.9, Total Bilirubin 0.3, Aspartate Amino Transf (AST/SGOT) 10, Alanine Aminotransferase (ALT/SGPT) 8, Alkaline Phosphatase 65, Total Protein 6.3L, Albumin 2.4L Home Meds Active Reported Sucralfate 1 Gm Tablet 1 Gm PO ACHS Lisinopril 20 Mg Tablet 20 Mg PO DAILY Levemir Flextouch (Insulin Detemir) 100 Unit/1 Ml Insuln.pen 10 Unit SQ HS Promethazine Tablet (Promethazine HCl) 25 Mg Tablet 25 Mg PO Q12H PRN Ropinirole HCl 0.25 Mg Tablet 0.5 Mg PO HS TAKES 2 (0.25MG) TABLETS Oxycodone HCl 20 Mg Tablet 20 Mg PO Q4 -6H MDD 5 TABS Amlodipine Besylate 10 Mg Tablet 10 Mg PO DAILY Metoprolol Succinate 100 Mg Tab.er.24h 100 Mg PO DAILY Pantoprazole Sodium 40 Mg Tablet.dr 40 Mg PO BIDAC Atorvastatin Calcium 20 Mg Tablet 20 Mg PO HS Gabapentin 800 Mg Tablet 800 Mg PO DAILY Gabapentin 800 Mg Tablet 1,600 Mg PO HS TAKES 2 (800MG) TABLETS Skilled NF Admit to: [facility] Certification (SNF) I certify that SNF services are required to be given on an inpatient basis because of the above named patient's need for senior living care on a continuing basis for the conditions(s) for which he/she was receiving inpatient hospital services prior to his/her transfer to the SNF. Alf Facility Order: Nursing Services, Parking Lot Attendant And Cashier-Evaluate & Treat, Physical Therapy-Evaluate & Treat Oxygen Delivery Method: Nasal Cannula Discharge Diet: ADA Diet Daily Activity as Tolerated: Yes Resuscitation Status: Full Code Alexx Rico Oct 28, 2021 11:01 Discharge Physical Exam General: Alert, Oriented X3, Mild Distress (with any movement due to pain) Lungs: Clear to Auscultation, Normal Air Movement Heart: Regular Rate, No Murmurs Abdomen: Normal Bowel Sounds, Soft, No Tenderness, No Masses Extremities: No Edema, No Tenderness/Swelling Neuro: Other (unable to get to sitting position due to pain) ALEXX RICO MD Oct 28, 2021 11:05
[2021-10-28] MEDS ORDERED: FENT1PAT8 TOP (11:09)
[2021-10-28] MEDS ORDERED: MORP-69 PO (11:09)
[2021-10-28] MEDS ORDERED: METH-732 PO (11:09)
[2021-10-28] MEDS ORDERED: DOCU100C37 PO (11:09)
[2021-10-28] MEDS ORDERED: POLY17PO54 PO (11:09)
[2021-10-28] MEDS ORDERED: INSU100V5 SQ ×2 (11:09→18:16)
[2021-10-28] MEDS ORDERED: SENN1TAB76 PO (11:09)
[2021-10-28] MEDS ORDERED: OXC5T PO (11:09)
--- NOTE | 2021-10-28 12:02 | Occ Therapy Progress Note ---
Therapy Progress Note OT tx attempted. Pt states she is supposed to be discharging to SNF today, declines therapy as she wants to rest prior to transfer. OT educated pt on purpose and benefit of OT, but she continued to decline tx. OT will attempt again tomorrow if pt is still admitted. 1, refusal [id number] VERNELL FERRER OT Oct 28, 2021 12:02
[2021-10-28 15:30] VITALS: BP 173/75
[2021-10-28] MEDS ORDERED: AMLO-251 PO (18:13)
[2021-10-28] MEDS ORDERED: PANT40TA52 PO (18:13)
[2021-10-28] MEDS ORDERED: SUCR1TAB PO (18:13)
[2021-10-28] MEDS ORDERED: MTP100TCR PO (18:13)
[2021-10-28] MEDS ORDERED: GABA800T10 PO ×2 (18:13)
[2021-10-28] MEDS ORDERED: ATOR20TA66 PO (18:13)
[2021-10-28] MEDS ORDERED: LISI20TA26 PO (18:13)
[2021-10-28] MEDS ORDERED: PROM25TA14 PO (18:13)
[2021-10-28] MEDS ORDERED: ROPI0.253 PO (18:13)
[2021-10-29] MEDS ORDERED: FENTANYL PATCH REMOVAL TP SCH (12:45)
== END 2021-10-28 15:30 | DRG 543 ==
LOC: EDUNIT# 23:05 → ER 23:06 → ICU 10-11 02:00 → 4TH 10-11 14:16
PROVIDERS: ADMIT Internal Medicine; ATTEND Family Medicine
DX: M84.68XA Pathological fracture in other disease, other site, initial encounter for fracture (principal); G95.89 Other specified diseases of spinal cord; E10.65 Type 1 diabetes mellitus with hyperglycemia; F17.210 Nicotine dependence, cigarettes, uncomplicated; K21.9 Gastro-esophageal reflux disease without esophagitis; I12.9 Hypertensive chronic kidney disease with stage 1 through stage 4 chronic kidney disease, or unspecified chronic kidney disease; N18.9 Chronic kidney disease, unspecified; I25.10 Atherosclerotic heart disease of native coronary artery without angina pectoris; E10.22 Type 1 diabetes mellitus with diabetic chronic kidney disease; E78.5 Hyperlipidemia, unspecified; K58.9 Irritable bowel syndrome, unspecified; M79.7 Fibromyalgia; G89.29 Other chronic pain; M54.9 Dorsalgia, unspecified; M54.2 Cervicalgia; F41.9 Anxiety disorder, unspecified; K57.90 Diverticulosis of intestine, part unspecified, without perforation or abscess without bleeding; G40.909 Epilepsy, unspecified, not intractable, without status epilepticus; E10.51 Type 1 diabetes mellitus with diabetic peripheral angiopathy without gangrene; E10.40 Type 1 diabetes mellitus with diabetic neuropathy, unspecified; M19.90 Unspecified osteoarthritis, unspecified site; H35.30 Unspecified macular degeneration; D50.0 Iron deficiency anemia secondary to blood loss (chronic); G25.81 Restless legs syndrome; J44.9 Chronic obstructive pulmonary disease, unspecified; F03.90 Unspecified dementia, unspecified severity, without behavioral disturbance, psychotic disturbance, mood disturbance, and anxiety; E83.42 Hypomagnesemia; R50.9 Fever, unspecified; R05.9 Cough, unspecified; Z95.5 Presence of coronary angioplasty implant and graft; Z88.1 Allergy status to other antibiotic agents; Z91.040 Latex allergy status; Z79.4 Long term (current) use of insulin; Z79.899 Other long term (current) drug therapy; Z86.718 Personal history of other venous thrombosis and embolism
CPT/HCPCS: 36410; 36415; 36591; 71045; 71046; 72128; 72131; 72148; 76937; 80048; 80053; 80306; 80320; 81000; 82010; 82150; 82378; 82607; 82728; 82746; 82947; 83020; 83036; 83540; 83550; 83605; 83690; 83735; 83874; 84100; 84155; 84165; 85007; 85025; 85027; 85045; 85055; 86141; 86300; 86301; 86304; 86334; 86850; 86900; 86901; 86920; 94760; 94761; 96361; 96374; 96375

== ENCOUNTER → 2021-10-10 | Outpatient (CLI) | payer MEDICARE ==
[~2021-10-10] MED LIST changes: +OXYC20TA3 PO; +ROPI0.253 PO; +SUCR1TAB PO; +SUCR1TAB36 PO
--- NOTE | 2021-10-10 09:21 | Diagnostic Imaging Report ---
EXAMINATION: Chest 2 view HISTORY: Preop clearance. COMPARISON: 09/13/2021. FINDINGS: A right port is stable in configuration. The lung volumes are normal. Improved aeration is seen in the bilateral perihilar regions and right lung base. No large pleural effusion or pneumothorax is seen. The cardiomediastinal silhouette is normal in size and contour. Loop recorder is seen overlying the cardiac silhouette. No acute osseous abnormality is seen. IMPRESSION: 1. Improved aeration in the perihilar regions and right lung base, likely representing improving infection and/or atelectasis. Dictated by: Dictated on workstation # [id number]
[2021-10-10 09:45] LABS: BASOPHILS # (AUTO) 0.1 10^3/uL (0.0-0.1); BASOPHILS % (AUTO) 1 % (0-10); EOSINOPHILS # (AUTO) 0.2 10^3/uL (0.0-0.3); EOSINOPHILS % (AUTO) 3 % (0-10); HEMATOCRIT 28 % (35-52); HEMOGLOBIN 8.7 g/dL (11.5-16.0); LYMPHOCYTES # (AUTO) 1.9 10^3/uL (1.0-4.0); LYMPHOCYTES % (AUTO) 24 % (12-44); MEAN CORPUSCULAR HEMOGLOBIN 28 pg (25-34); MEAN CORPUSCULAR HGB CONC 32 g/dL (32-36); MEAN CORPUSCULAR VOLUME 89 fL (80-99); MEAN PLATELET VOLUME 9.5 fL (9.0-12.2); MONOCYTES # (AUTO) 0.6 10^3/uL (0.0-1.0); MONOCYTES % (AUTO) 8 % (0-12); NEUTROPHILS % (AUTO) 64 % (42-75); PLATELET COUNT 289 10^3/uL (130-400); WHITE BLOOD COUNT 7.8 10^3/uL (4.3-11.0)
[2021-10-10 10:19] LABS: BILIRUBIN,URINE NEGATIVE (NEGATIVE); CLARITY,URINE CLEAR; COLOR,URINE YELLOW; GLUCOSE, URINE (UA) 2+ (NEGATIVE); KETONES,URINE NEGATIVE (NEGATIVE); LEUKOCYTE ESTERASE ,URINE NEGATIVE (NEGATIVE); NITRITE,URINE NEGATIVE (NEGATIVE); PROTEIN,URINE 2+ (NEGATIVE)
[2021-10-10 10:23] LABS: BACTERIA,URINE LARGE /HPF
[2021-10-10 10:45] LABS: ALBUMIN 2.7 GM/DL (3.2-4.5); BILIRUBIN,TOTAL 0.2 MG/DL (0.1-1.0); CALCIUM 8.4 MG/DL (8.5-10.1); CREATININE SERUM 1.21 MG/DL (0.60-1.30); TOTAL PROTEIN 7.2 GM/DL (6.4-8.2)
== END ==
LOC: SDC 08:22
PROVIDERS: ATTEND Thoracic Surgery (Cardiothoracic Vascular Surgery)
DX: Z01.810 Encounter for preprocedural cardiovascular examination (principal); I70.213 Atherosclerosis of native arteries of extremities with intermittent claudication, bilateral legs
CPT/HCPCS: 36415; 71046; 80053; 81000; 85025

== ENCOUNTER 2021-11-01 13:02 | Emergency (ER) | payer MEDICARE ==
[~2021-11-01] VITALS: Ht 152 cm; Wt 48.0 kg
[~2021-11-01 13:02] MED LIST changes: +DOCU100C37 PO; +FENT1PAT8 TOP; +METH-732 PO; +MORP-69 PO; +OXC5T PO; +POLY17PO54 PO; +SENN1TAB76 PO; +SUCR1TAB PO
[2021-11-01] MEDS ORDERED: morphine INJ 10 MG/ML 1ML (SYR OR VIAL) IVP STA ×2 (13:59→15:06)
[2021-11-01] MEDS ORDERED: ORPHENADRINE 60 MG/2 ML (NORFLEX) AMP (ED ONLY) IV ONE (14:00)
--- NOTE | 2021-11-01 14:06 | ED General ---
General Chief Complaint: General Problems/Pain Stated Complaint: BACK PAIN Nursing Triage Note: TO ED PER EMS FROM [facility] IS THEIR FOR REHAB OF L SPINE FX. TODAY REACHED FOR SOMETHING AND FELL OUT OF BED. C/O INCREASE IN PAIN. 50MCG OF FENTANYL GIVEN BY EMS Source of Information: Patient Exam Limitations: No Limitations History of Present Illness Date Seen by Provider: Nov 01, 2021 Time Seen by Provider: 13:45 Initial Comments Patient is a 61-year-old female who presents to the emergency department with a chief complaint of lower back pain and bilateral leg pain. Patient states she was bending over to reach for something on the floor and fell. She has recently been diagnosed with a lytic lesion at L2. She is awaiting referral to a spine center in order to have a biopsy completed. She states that she was not offered any pain medicine at [facility] where she currently resides because it was "not time" for her to have pain medicine. She denies any incontinence of bowel or bladder. No numbness, tingling or weakness. She denies chest pain, shortness of breath, nausea or vomiting. She states her daily pain medication regimen includes oxycodone 20 mg 4 times a day. Patient is also complaining of a "sore" at the apex of her buttocks. She states this has been there for several weeks. It is currently being dressed by the nurses at the shelter. She states she is not on antibiotics. No reported recent fevers. Patient did receive 50 mics of fentanyl prior to arrival by EMS. All other review of systems reviewed and negative except as stated. Timing/Duration: 1-3 Hours Severity: Severe Associated Systoms: Denies Symptoms Allergies and Home Medications Allergies Coded Allergies: ketorolac (Verified Allergy, Severe, ANAPHYLAXIS, PT TAKES ASA AT HOME, 03/06/19) scopolamine (Verified Allergy, Mild, Rash, 03/21/19) exenatide (Verified Allergy, Unknown, NAUSEA, 03/06/19) NON STOP VOMITING latex (Verified Allergy, Unknown, RASH, 03/06/19) metoclopramide (Verified Allergy, Unknown, RESTLESS LEGS, 03/06/19) erythromycin base (Verified Adverse Reaction, Unknown, 03/21/19) Patient Home Medication List Home Medication List Reviewed: Yes Amlodipine Besylate (Amlodipine Besylate) 10 Mg Tablet, 10 MG PO DAILY Prescribed by: ALEXX ZIMMER on 10/28/211812 Atorvastatin Calcium (Atorvastatin Calcium) 20 Mg Tablet, 20 MG PO HS Prescribed by: ALEXX ZIMMER on 10/28/211812 Docusate Sodium (Docusate Sodium) 100 Mg Capsule, 100 MG PO BID PRN for CONSTIPATION-1ST LINE Prescribed by: ALEXX ZIMMER on 10/28/21 110 Fentanyl (Fentanyl Patch 25 MCG) 1 Each Patch.td72, 25 MCG TOP Q72H Prescribed by: ALEXX ZIMMER on 10/28/21 1400 Gabapentin (Gabapentin) 800 Mg Tablet, 1,600 MG PO HS Prescribed by: ALEXX ZIMMER on 10/28/211812 Gabapentin (Gabapentin) 800 Mg Tablet, 800 MG PO DAILY Prescribed by: ALEXX ZIMMER on 10/28/211812 Insulin Determir (Levemir) 1,000 Units/10 Ml Soln, 5 UNIT SQ HS Prescribed by: ALEXX ZIMMER on 10/28/211815 Lisinopril (Lisinopril) 20 Mg Tablet, 20 MG PO DAILY Prescribed by: ALEXX ZIMMER on 10/28/211812 Methocarbamol (Methocarbamol) 750 Mg Tablet, 750 MG PO QID Prescribed by: ALEXX ZIMMER on 10/28/211108 Metoprolol Succinate (Metoprolol Succinate) 100 Mg Tab.er.24h, 100 MG PO DAILY Prescribed by: ALEXX ZIMMER on 10/28/211812 Morphine Sulfate (Morphine Sulfate ER) 30 Mg Tablet.er, 30 MG PO Q12HR Prescribed by: ALEXX ZIMMER on 10/28/211399 Oxycodone Hcl (Oxyir Tablet) 5 Mg Tab, 20 MG PO Q4H PRN for PAIN-SEVERE (8-10) Prescribed by: ALEXX ZIMMER on 10/28/21 1400 Pantoprazole Sodium (Pantoprazole Sodium) 40 Mg Tablet.dr, 40 MG PO BIDAC Prescribed by: ALEXX ZIMMER on 10/28/211812 Polyethylene Glycol 3350 (Polyethylene Glycol 3350) 17 Gm Powd.pack, 17 GM PO BID Prescribed by: ALEXX ZIMMER on 10/28/211108 Promethazine HCl (Promethazine Tablet) 25 Mg Tablet, 25 MG PO Q12H PRN for NAUSEA/VOMITING-1ST LINE Prescribed by: ALEXX ZIMMER on 10/28/211812 Ropinirole HCl (Ropinirole HCl) 0.25 Mg Tablet, 0.5 MG PO HS Prescribed by: ALEXX ZIMMER on 10/28/211812 Sennosides/Docusate Sodium (Stool Softener-Laxative Tablet) 1 Each Tablet, 1 EA PO DAILY Prescribed by: ALEXX ZIMMER on 10/28/211108 Sucralfate (Sucralfate) 1 Gm Tablet, 1 GM PO ACHS Prescribed by: ALEXX ZIMMER on 10/28/211812 Discontinued Medications Insulin Detemir (Levemir Flextouch) 100 Unit/1 Ml Insuln.pen, 10 UNIT SQ HS, (Reported) Entered as Reported by: NAEL ABDI on 09/16/21 122 Oxycodone HCl (Oxycodone HCl) 20 Mg Tablet, 20 MG PO Q4 -6H, (Reported) Entered as Reported by: NAEL ABDI on 09/16/21 1229 Review of Systems Review of Systems Constitutional: see HPI EENTM: no symptoms reported Respiratory: no symptoms reported Cardiovascular: no symptoms reported Gastrointestinal: no symptoms reported Genitourinary: no symptoms reported : No Musculoskeletal: back pain (Lumbar back pain), muscle pain (Bilateral lower extremities), muscle cramps Skin: other (Wound at the apex of her buttocks) Psychiatric/Neurological: No Symptoms Reported All Other Systems Reviewed Negative Unless Noted: Yes Past Nuiiqaw-Kgfnyv-Plahuc Hx Patient Social History Tobacco Use?: No Use of E-Cig and/or Vaping dev: No Substance use?: No Immunizations Up To Date Tetanus Booster (TDap): Unknown PED Vaccines UTD: No First/Initial COVID19 Vaccinat: January COVID19 Vaccination Sharif: February COVID19 Vaccination Date: January 2021 COVID19 Vaccine Social Service Agency Director: GUILLERMINA Seasonal Allergies Seasonal Allergies: Yes Past Medical History Surgery/Hospitalization HX: NON-COMPLIANT DM, CVA, SEIZURES, HTN, CARDIAC STENTS, DVT, FIBROMYALGIA, IBS, LAMINECTOMY, SUBSTANCE ABUSE Surgeries: Yes (EGD) Cardiac, Coronary Stent, Orthopedic Respiratory: Yes COPD Currently Using CPAP: No Currently Using BIPAP: No Cardiac: Yes Hypertension Neurological: Yes Dementia, Neuropathy Reproductive Disorders: No 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 Disorders: Denies 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 Sexually Transmitted Disease: No HIV/AIDS: No Genitourinary: Yes Renal Failure Gastrointestinal: Yes Gastroesophageal Reflux, Gastrointestinal Bleed Musculoskeletal: Yes Degenerate Disk Disease, Arthritis, Chronic Back Pain Endocrine: Yes Diabetes, Non-Insulin dep HEENT: Yes Macular Degeneration Loss of Vision: Bilateral Hearing Impairment: Hard of Hearing Cancer: Yes Psychosocial: Yes Anxiety Integumentary: Yes Psoriasis Blood Disorders: No Adverse Reaction/Blood Tranf: No Family Medical History Cancer of mouth 19 FATHER ( of esophogeal cancer.) Cardiovascular disease 19 MOTHER G8 BROTHER Completed stroke 19 FATHER G8 BROTHER Diabetes mellitus G8 BROTHER FH: lung cancer 19 MOTHER Hypertension 19 FATHER Kidney disease 19 FATHER Myocardial infarction 19 MOTHER G8 BROTHER Respiratory disorder No Family History of: AIDS Cancer, Diabetes, Hypertension SOCIAL HISTORY: -ETOH--RARELY USES -DRUGS--Rx NARCOTIC ABUSE -SMOKES 1 PPD PSH: -LINQ DEVICE PLACED 11/09/19 FOR REPORTED PALPITATIONS X 6 MONTHS, SINCE PERCOCET WAS DC'D -MULTIPLE CARDIAC CATHS--STENT X 1 TO LAD 07/13/15. LAST CATH 01/18/19--NO INTERVENTION -LUMBAR SPINE FUSION X 3--12/2002, 04/2007, AND 05/2007 -LUMBAR DISCECTOMY 10/2000--? LAMINECTOMY? -CERVICAL SPINE FUSION 11/2006 -CHOLECYSTECTOMY 1983 -BMT'S -LITHOTRIPSY AND RIGHT URETERAL STENT -EGD'S WITH ESOPHAGEAL DILATIONS -COLONOSCOPIES, LAST ONE 03/08/19 -PORT RIGHT CHEST -LEFT SHOULDER ROTATOR CUFF REPAIR 05/01/20--DR. PALACIOS -CONTINUOUS GLUCOSE MONITOR PRESENT 06/25/20--LLQ OF ABDOMEN--NOT PRESENT 10/2020 -BILATERAL CATARACT SURGERY 10/2020 -PERIPHERAL ANGIOGRAM 05/02/[address] FELIX: SEVERE BILATERAL SUPERFICIAL FEMORAL ARTERY DISEASE AND RECOMMENDED BILATERAL FEMORAL-POPLITEAL SURGERY--REFERRED TO DR. SAWYER AT [facility] HISTORY OF EXTREME NON-COMPLIANCE IN ALL ASPECTS OF CARE Physical Exam Vital Signs Vital Signs - First Documented 11/01/21 13:17 Pulse 57 Resp 18 B/P (MAP) 108/40 (62) Pulse Ox 98 O2 Delivery Room Air Capillary Refill : Less Than 3 Seconds Height, Weight, BMI Height: 5'1.00" Weight: 122lbs. 1.0oz. 55.531662ep; 20.00 BMI Method:Estimated General Appearance: WD/WN, Anxious, Chronically ill Eyes: Bilateral Eye Normal Inspection, Bilateral Eye PERRL, Bilateral Eye EOMI HEENT: PERRL/EOMI Neck: Normal Inspection Respiratory: Lungs Clear, Normal Breath Sounds, No Accessory Muscle Use, No Respiratory Distress Cardiovascular: Regular Rate, Rhythm, Normal Peripheral Pulses Gastrointestinal: Normal Bowel Sounds, Non Tender, Soft Back: Normal Inspection, Other (No midline vertebral tenderness, she does have some tenderness at the posterior superior iliac crest on the right.; Neurovascularly intact, normal strength and sensation in the bilateral lower extremities. No saddle anesthesia.) Extremity: Normal Capillary Refill, Normal Inspection, Normal Range of Motion, No Pedal Edema, Other (Patient is tender to mild to moderate palpation everywhere) Neurologic/Psychiatric: Alert, Oriented x3, No Motor/Sensory Deficits, Normal M ood/Affect Skin: Normal Color, Warm/Dry, Other (Patient has a shallow ulcer at the apex of her buttocks, more located to the right side of the gluteal cleft approximately 3 cm in diameter, overlying yellow eschar noted, there is a superficial/shallow kissing lesion on the opposite side. No surrounding erythema. No fluctuance. No drainage.) Progress/Results/Core Measures Suspected Sepsis SIRS Temperature: Pulse: 57 Respiratory Rate: 18 Blood Pressure 108 /40 Mean: 62 Results/Orders My Orders Orders - RIKKI PANCHAL MD Morphine Injection (Morphine Injection (11/01/21 13:59) Orphenadrine Inj (Ed Only) (Norflex Inje (11/01/21 14:00) Medications Given in ED Current Medications Medications Dose Ordered Sig/Jackie Route Start Time Stop Time Status Last Admin Dose Admin Orphenadrine Citrate 30 mg ONCE ONCE IV 11/01/21 14:00 11/01/21 14:01 DC 11/01/21 14:44 30 MG Vital Signs/I&O 11/01/21 13:17 Pulse 57 Resp 18 B/P (MAP) 108/40 (62) Pulse Ox 98 O2 Delivery Room Air Capillary Refill : Less Than 3 Seconds Blood Pressure Mean: 62 Progress Note #1: Time: 14:06 Progress Note Patient is treated in the emergency department with 5 mg of morphine IV as well as 30 mg of Norflex IV. Wound on her buttocks is dressed. She is neurologically intact, no concerns for acute cauda equina syndrome. She has normal strength and sensation in her lower extremities, no saddle anesthesia. Moving all of her extremities normally. No reproducible midline back pain. I do not see any emergent reason to repeat CAT scan her back at this time. She is pending consultation with orthopedic/neurosurgeon in order to get a biopsy at her L2 lytic lesion. Vital signs are stable. She has no complaints of infectious process. No lab work is done at this visit. Patient is encouraged to continue to seek follow-up for that lytic lesion. Also encouraged to follow- up with her primary care doctor regarding the wound on her buttocks. All questions are sought and answered. Progress Note #2: Time: 15:05 Progress Note Reassessed patient after pain meds and muscle relaxers. She is still complaining of pain to her back and lower legs. She is a little improved but asking for 1 more dose of pain medicine. She did asked to be admitted, " just for 1 night". I explained to her that without acute neurologic dysfunction or any other supporting evidence for an admission that would not be possible. She is very tearful and does not like the shelter. I reassured her that she seems to be getting good care. We will give her 1 more dose of pain medicines and call the shelter to have her transported home. Departure Impression Primary Impression: Low back pain Qualified Codes: M54.50 - Low back pain, unspecified Additional Impression: Sacral wound Qualified Codes: S31.000A - Unspecified open wound of lower back and pelvis without penetration into retroperitoneum, initial encounter Disposition: 01 HOME, SELF-CARE Condition: Stable Departure-Patient Inst. Decision time for Depature: 14:07 Referrals: [facility] (PCP/Family) Primary Care Physician Patient Instructions: Low Back Pain (DC), Wound Care ED Add. Discharge Instructions: Local wound care to the ulcer at your buttocks. Continue pain medications as prescribed at the shelter. Pain patches, [id number] as needed to help alleviate pain. Follow-up with your primary care physician. You also need to follow-up with orthopedic spine surgery or neurosurgery to have that wound at your lumbar vertebrae biopsied. Return to the emergency room for any new, concerning or emergent complaints. RIKKI PANCHAL MD Nov 01, 2021 14:05
[2021-11-01 16:45] VITALS: BP 110/54
== END 2021-11-01 16:40 | disposition home or self-care (01) ==
LOC: EDUNIT# 13:02 → ER 13:04
DX: S31.000A Unspecified open wound of lower back and pelvis without penetration into retroperitoneum, initial encounter (principal)
CPT/HCPCS: 96374; 96375; 96376

== ENCOUNTER 2021-11-25 08:03 | Inpatient (IN) | payer MEDICARE ==
[~2021-11-25] VITALS: Ht 152 cm; Wt 54.6 kg
[2021-11-25 08:35] LABS: BASOPHILS # (AUTO) 0.1 10^3/uL (0.0-0.1); BASOPHILS % (AUTO) 1 % (0-10); EOSINOPHILS % (AUTO) 0 % (0-10); HEMATOCRIT 34 % (35-52); HEMOGLOBIN 10.7 g/dL (11.5-16.0); LYMPHOCYTES # (AUTO) 1.9 10^3/uL (1.0-4.0); LYMPHOCYTES % (AUTO) 11 % (12-44); MEAN CORPUSCULAR HEMOGLOBIN 30 pg (25-34); MEAN CORPUSCULAR HGB CONC 32 g/dL (32-36); MEAN CORPUSCULAR VOLUME 93 fL (80-99); MEAN PLATELET VOLUME 10.2 fL (9.0-12.2); MONOCYTES # (AUTO) 0.7 10^3/uL (0.0-1.0); MONOCYTES % (AUTO) 4 % (0-12); NEUTROPHILS # (AUTO) 14.2 10^3/uL (1.8-7.8); NEUTROPHILS % (AUTO) 83 % (42-75); PLATELET COUNT 298 10^3/uL (130-400); WHITE BLOOD COUNT 17.2 10^3/uL (4.3-11.0)
[2021-11-25 08:47] LABS: POTASSIUM 4.3 MMOL/L (3.6-5.0)
[2021-11-25 08:50] LABS: TOTAL PROTEIN 7.1 GM/DL (6.4-8.2)
[2021-11-25 08:52] LABS: BILIRUBIN,TOTAL 0.3 MG/DL (0.1-1.0)
[2021-11-25 08:54] LABS: CREATININE SERUM 1.52 MG/DL (0.60-1.30)
[2021-11-25 09:03] LABS: BAND NEUTROPHILS 2 %; BASOPHILS % (MANUAL) 0 %; EOSINOPHILS % (MANUAL) 2 %; LYMPHOCYTES % (MANUAL) 8 %; MONOCYTES % (MANUAL) 4 %; NEUTROPHILS % (MANUAL) 84 %; RBC MORPH NORMAL
[2021-11-25 11:04] LABS: BILIRUBIN,URINE NEGATIVE (NEGATIVE); CLARITY,URINE CLEAR; COLOR,URINE YELLOW; GLUCOSE, URINE (UA) NEGATIVE (NEGATIVE); KETONES,URINE NEGATIVE (NEGATIVE); LEUKOCYTE ESTERASE ,URINE NEGATIVE (NEGATIVE); NITRITE,URINE NEGATIVE (NEGATIVE); PH,URINE 6.5 (5-9); PROTEIN,URINE 2+ (NEGATIVE)
[2021-11-25 11:11] LABS: BACTERIA,URINE NEGATIVE /HPF
--- NOTE | 2021-11-25 12:14 | Diagnostic Imaging Report ---
INDICATION: Leukocytosis Portable chest 11:56 AM Right IJ Port-A-Cath tip projects over the cavoatrial junction. There is a loop recorder in the left lower chest. There is a dense consolidating infiltrate in the perihilar region of left lung. There is some interstitial infiltrate at both lung bases. IMPRESSION: Bilateral pulmonary infiltrates consistent with pneumonia. These are new since 10/23/2021. Dictated by: Dictated on workstation # [id number]
[2021-11-25] MEDS ORDERED: LACTATED RINGERS 1,000 ML IV ONE (12:45)
[2021-11-25] MEDS ORDERED: CEFEPIME INJECTION 2,000 MG in NS (IVPB) 50 ML IV ONE (12:45)
[2021-11-25 13:22] LABS: PROTHROMBIN TIME PATIENT 13.3 SEC (12.2-14.7)
--- NOTE | 2021-11-25 13:30 | Diagnostic Imaging Report ---
PROCEDURE: CT pelvis without contrast. TECHNIQUE: Multiple contiguous axial images were obtained through the pelvis without the use of intravenous contrast. Sagittal and coronal reformations were performed. Auto Exposure Controls were utilized during the CT exam to meet ALARA standards for radiation dose reduction. INDICATION: Deep sacral wound. FINDINGS: The CT abdomen/pelvis exam of 09/13/2021 failed to show any soft tissue abnormality involving the sacrum. In the interval since the prior study, however, a 1.4 x 2.1 cm soft tissue density has developed along the posterior aspect of the sacrococcygeal junction just to the left of midline. The sagittal images also suggest there is a small skin ulceration in this area. This soft tissue density is most likely due to an inflammatory/infectious process, and there does appear to be slight thinning of the posterior cortex of the first coccygeal segment on the left. This may be secondary to osteomyelitis. If further imaging is desired, then MRI would be recommended. There is no drainable abscess evident in this area. There is no other mass or bony destruction identified. The images through the pelvis itself failed to show any sign of an acute abnormality. The Bateman catheter within the bladder seen previously has been removed. The bladder is fairly well distended and shows no definite abnormality. The uterus is small. There is a fair amount of fecal material throughout the visualized colon. The appendix is not well imaged, but there are no indirect signs of acute appendicitis. There is no pelvic mass or free fluid collection noted. The postsurgical changes involving the lower lumbar spine seen previously are again evident and no different. IMPRESSION: 1. In the interval since the prior study, a 1.4 x 2.1 cm soft tissue density has developed along the posterior aspect of the sacrococcygeal junction just to the left of midline. This is most likely due to an inflammatory/infectious process, and the slight irregularity of the posterior cortex of the first coccygeal segment on the left does raise a question of osteomyelitis. If further imaging is desired, then MRI would be recommended. There is no drainable abscess evident in this area. 2. There is no acute abnormality noted otherwise. 3. These results were discussed with Dr. Quiroga in the ER. Dictated by: Dictated on workstation # [id number]
--- NOTE | 2021-11-25 14:45 | ED General ---
General Chief Complaint: Glucose Problems Stated Complaint: HYPOGLYCEMIA Nursing Triage Note: PT ARRIVED PER EMS PT FSBS AT NH 60, PT WAS GIVEN GLUCOGON AT NH. UP TO 110 FOR EMS. PT IS ALERT AND MOANING AT THIS X. 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 PT WEARING O2 @ 3L PER EMS. Source of Information: Patient, EMS, [facility] Records, Old Records Exam Limitations: No Limitations History of Present Illness Date Seen by Provider: Nov 25, 2021 Time Seen by Provider: 08:11 Initial Comments Patient presents to the emergency room from the long-term with primary complaint of hypoglycemia. Blood sugar was in the 60s at the long-term. Increased to 110 for EMS after receiving glucagon. Patient also complains of generalized pain "all over". She had recently been admitted at this ER and eval uated for compression fracture of the lumbar spine. There was concern for possible pathologic etiology of that fracture. She was ultimately discharged to the long-term. She has developed a deep coccygeal ulcer since that admission. She was requiring nasal cannula oxygen support upon arrival. Patient begs this provider to not send her back to the long-term. Allergies and Home Medications Allergies Coded Allergies: ketorolac (Verified Allergy, Severe, ANAPHYLAXIS, PT TAKES ASA AT HOME, 03/06/19) scopolamine (Verified Allergy, Mild, Rash, 03/21/19) exenatide (Verified Allergy, Unknown, NAUSEA, 03/06/19) NON STOP VOMITING latex (Verified Allergy, Unknown, RASH, 03/06/19) metoclopramide (Verified Allergy, Unknown, RESTLESS LEGS, 03/06/19) erythromycin base (Verified Adverse Reaction, Unknown, 03/21/19) Patient Home Medication List Home Medication List Reviewed: Yes Amlodipine Besylate (Amlodipine Besylate) 10 Mg Tablet, 10 MG PO DAILY, (Reported) Entered as Reported by: NAEL ABDI on 11/25/211658 Last Action: Reviewed Atorvastatin Calcium (Atorvastatin Calcium) 40 Mg Tablet, 40 MG PO 1800, (Reported) Entered as Reported by: NAEL ABDI on 11/25/211658 Last Action: Reviewed Cephalexin (Cephalexin) 500 Mg Capsule, 500 MG PO 0600,1000,1400, (Reported) Entered as Reported by: NAEL ABDI on 11/25/211658 Last Action: Reviewed Divalproex Sodium (Depakote) 125 Mg Tablet.dr, 125 MG PO 0600,1800, (Reported) Entered as Reported by: NAEL ABDI on 11/25/211658 Last Action: Reviewed Docusate Sodium (Docusate Sodium) 100 Mg Capsule, 100 MG PO Q12H PRN for CONSTIPATION-1ST LINE, (Reported) Entered as Reported by: NAEL ABDI on 11/25/211658 Last Action: Reviewed Gabapentin (Gabapentin) 800 Mg Tablet, 1,600 MG PO HS, (Reported) Entered as Reported by: NAEL ABDI on 11/25/211658 Last Action: Reviewed Gabapentin (Gabapentin) 800 Mg Tablet, 800 MG PO DAILY, (Reported) Entered as Reported by: NAEL ABDI on 11/25/211658 Last Action: Reviewed Ibuprofen (Ibuprofen) 400 Mg Tablet, 400 MG PO Q6H PRN for PAIN, (Reported) Entered as Reported by: NAEL ABDI on 11/25/211658 Last Action: Reviewed Insulin Aspart (Novolog Flexpen) 300 Units/3 Ml Solution, UNITS SQ AC, (Reported) Entered as Reported by: NAEL ABDI on 11/25/211658 Last Action: Reviewed Insulin Degludec (Tresiba Flextouch U-100) 100 Unit/1 Ml Insuln.pen, 30 UNIT SQ DAILY, (Reported) Entered as Reported by: NAEL ABDI on 11/25/211658 Last Action: Reviewed Lisinopril (Lisinopril) 20 Mg Tablet, 20 MG PO 1000, (Reported) Entered as Reported by: NAEL ABDI on 11/25/211658 Last Action: Reviewed Metoprolol Succinate (Metoprolol Succinate) 100 Mg Tab.er.24h, 100 MG PO 1800, (Reported) Entered as Reported by: NAEL ABDI on 11/25/211658 Last Action: Reviewed Oxycodone HCl (Oxycodone HCl) 5 Mg Tablet, 20 MG PO Q4H PRN for PAIN-SEVERE (8- 10), (Reported) Entered as Reported by: NAEL ABDI on 11/25/211658 Last Action: Reviewed Pantoprazole Sodium (Pantoprazole Sodium) 40 Mg Tablet.dr, 40 MG PO 0600,1400, (Reported) Entered as Reported by: NAEL ABDI on 11/25/211658 Last Action: Reviewed Polyethylene Glycol 3350 (Miralax) 17 Gm Powd.pack, 17 GM PO 0600,1800, (Reported) Entered as Reported by: NAEL ABDI on 11/25/211658 Last Action: Reviewed Promethazine HCl (Promethazine Tablet) 25 Mg Tablet, 25 MG PO Q12H PRN for NAUSEA/VOMITING-2ND LINE, (Reported) Entered as Reported by: NAEL ABDI on 11/25/211658 Last Action: Reviewed Ropinirole HCl (Ropinirole HCl) 0.5 Mg Tablet, 0.5 MG PO 1800, (Reported) Entered as Reported by: NAEL ABDI on 11/25/211658 Last Action: Reviewed Sennosides/Docusate Sodium (Senna-S Tablet) 1 Each Tablet, 1 EACH PO DAILY, (Reported) Entered as Reported by: NAEL ABDI on 11/25/211658 Last Action: Reviewed Sucralfate (Carafate) 1 Gm Tablet, 1 GM PO ACHS, (Reported) Entered as Reported by: NAEL ABDI on 11/25/211658 Last Action: Reviewed Discontinued Medications Amlodipine Besylate (Amlodipine Besylate) 10 Mg Tablet, 10 MG PO DAILY Discontinued Reason: No Longer Taking Prescribed by: ALEXX ZIMMER on 10/28/211812 Last Action: Discontinued Atorvastatin Calcium (Atorvastatin Calcium) 20 Mg Tablet, 20 MG PO HS Discontinued Reason: No Longer Taking Prescribed by: ALEXX ZIMMER on 10/28/211812 Last Action: Discontinued Docusate Sodium (Docusate Sodium) 100 Mg Capsule, 100 MG PO BID PRN for CONSTIPATION-1ST LINE Discontinued Reason: No Longer Taking Prescribed by: ALEXX ZIMMER on 10/28/21 1109 Last Action: Discontinued Fentanyl (Fentanyl Patch 25 MCG) 1 Each Patch.td72, 25 MCG TOP Q72H Discontinued Reason: No Longer Taking Prescribed by: ALEXX ZIMMER on 10/28/21 1400 Last Action: Discontinued Gabapentin (Gabapentin) 800 Mg Tablet, 1,600 MG PO HS Discontinued Reason: No Longer Taking Prescribed by: ALEXX ZIMMER on 10/28/211812 Last Action: Discontinued Gabapentin (Gabapentin) 800 Mg Tablet, 800 MG PO DAILY Discontinued Reason: No Longer Taking Prescribed by: ALEXX ZIMMER on 10/28/211812 Last Action: Discontinued Insulin Determir (Levemir) 1,000 Units/10 Ml Soln, 5 UNIT SQ HS Discontinued Reason: No Longer Taking Prescribed by: ALEXX ZIMMER on 10/28/211815 Last Action: Discontinued Lisinopril (Lisinopril) 20 Mg Tablet, 20 MG PO DAILY Discontinued Reason: No Longer Taking Prescribed by: ALEXX ZIMMER on 10/28/211812 Last Action: Discontinued Methocarbamol (Methocarbamol) 750 Mg Tablet, 750 MG PO QID Discontinued Reason: No Longer Taking Prescribed by: ALEXX ZIMMER on 10/28/211108 Last Action: Discontinued Metoprolol Succinate (Metoprolol Succinate) 100 Mg Tab.er.24h, 100 MG PO DAILY Discontinued Reason: No Longer Taking Prescribed by: ALEXX ZIMMER on 10/28/211812 Last Action: Discontinued Morphine Sulfate (Morphine Sulfate ER) 30 Mg Tablet.er, 30 MG PO Q12HR Discontinued Reason: No Longer Taking Prescribed by: ALEXX ZIMMER on 10/28/211399 Last Action: Discontinued Oxycodone Hcl (Oxyir Tablet) 5 Mg Tab, 20 MG PO Q4H PRN for PAIN-SEVERE (8-10) Discontinued Reason: No Longer Taking Prescribed by: ALEXX ZIMMER on 10/28/211399 Last Action: Discontinued Pantoprazole Sodium (Pantoprazole Sodium) 40 Mg Tablet.dr, 40 MG PO BIDAC Discontinued Reason: No Longer Taking Prescribed by: ALEXX ZIMMER on 10/28/211812 Last Action: Discontinued Polyethylene Glycol 3350 (Polyethylene Glycol 3350) 17 Gm Powd.pack, 17 GM PO BID Discontinued Reason: No Longer Taking Prescribed by: ALEXX ZIMMER on 10/28/211108 Last Action: Discontinued Promethazine HCl (Promethazine Tablet) 25 Mg Tablet, 25 MG PO Q12H PRN for NAUSEA/VOMITING-1ST LINE Discontinued Reason: No Longer Taking Prescribed by: ALEXX ZIMMER on 10/28/211812 Last Action: Discontinued Ropinirole HCl (Ropinirole HCl) 0.25 Mg Tablet, 0.5 MG PO HS Discontinued Reason: No Longer Taking Prescribed by: ALEXX ZIMMER on 10/28/211812 Last Action: Discontinued Sennosides/Docusate Sodium (Stool Softener-Laxative Tablet) 1 Each Tablet, 1 EA PO DAILY Discontinued Reason: No Longer Taking Prescribed by: ALEXX ZIMMER on 10/28/21 110 Last Action: Discontinued Sucralfate (Sucralfate) 1 Gm Tablet, 1 GM PO ACHS Discontinued Reason: No Longer Taking Prescribed by: ALEXX ZIMMER on 10/28/211812 Last Action: Discontinued Review of Systems Review of Systems Constitutional: see HPI, malaise, weakness EENTM: no symptoms reported Respiratory: see HPI Cardiovascular: no symptoms reported Gastrointestinal: no symptoms reported Genitourinary: no symptoms reported : No Musculoskeletal: see HPI Skin: see HPI Psychiatric/Neurological: See HPI Hematologic/Lymphatic: No Symptoms Reported Immunological/Allergic: no symptoms reported Past Tdbpypi-Arqbhu-Nvavmd Hx Patient Social History Tobacco Use?: Yes Tobacco type used: Cigarettes Smoking Status: Current Everyday Smoker Substance use?: No Alcohol Use?: No Immunizations Up To Date Tetanus Booster (TDap): Unknown PED Vaccines UTD: No First/Initial COVID19 Vaccinat: January COVID19 Vaccination Sharif: February COVID19 Vaccination Date: JANUARY Seasonal Allergies Seasonal Allergies: Yes Past Medical History Surgery/Hospitalization HX: NON-COMPLIANT DM, CVA, SEIZURES, HTN, CARDIAC STENTS, DVT, FIBROMYALGIA, IBS, LAMINECTOMY, SUBSTANCE ABUSE Surgeries: Yes (EGD) Cardiac, Coronary Stent, Orthopedic Respiratory: Yes COPD Currently Using CPAP: No Currently Using BIPAP: No Cardiac: Yes Hypertension Neurological: Yes Dementia, Neuropathy Reproductive Disorders: No 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 Disorders: Denies [employer]XIOUS [employer] History: Menopausal Sexually Transmitted Disease: No HIV/AIDS: No Genitourinary: Yes Renal Failure Gastrointestinal: Yes Gastroesophageal Reflux, Gastrointestinal Bleed Musculoskeletal: Yes Degenerate Disk Disease, Arthritis, Chronic Back Pain Endocrine: Yes Diabetes, Non-Insulin dep HEENT: Yes Macular Degeneration Loss of Vision: Bilateral Hearing Impairment: Hard of Hearing Cancer: Yes Psychosocial: Yes Anxiety Integumentary: Yes Psoriasis Blood Disorders: No Adverse Reaction/Blood Tranf: No Family Medical History Cancer of mouth 19 FATHER ( of esophogeal cancer.) Cardiovascular disease 19 MOTHER G8 BROTHER Completed stroke 19 FATHER G8 BROTHER Diabetes mellitus G8 BROTHER FH: lung cancer 19 MOTHER Hypertension 19 FATHER Kidney disease 19 FATHER Myocardial infarction 19 MOTHER G8 BROTHER Respiratory disorder No Family History of: AIDS Cancer, Diabetes, Hypertension SOCIAL HISTORY: -ETOH--RARELY USES -DRUGS--Rx NARCOTIC ABUSE -SMOKES 1 PPD PSH: -LINQ DEVICE PLACED 11/09/19 FOR REPORTED PALPITATIONS X 6 MONTHS, SINCE PERCOCET WAS DC'D -MULTIPLE CARDIAC CATHS--STENT X 1 TO LAD 07/13/15. LAST CATH 01/18/19--NO INTERVENTION -LUMBAR SPINE FUSION X 3--12/2002, 04/2007, AND 05/2007 -LUMBAR DISCECTOMY 10/2000--? LAMINECTOMY? -CERVICAL SPINE FUSION 11/2006 -CHOLECYSTECTOMY 1983 -BMT'S -LITHOTRIPSY AND RIGHT URETERAL STENT -EGD'S WITH ESOPHAGEAL DILATIONS -COLONOSCOPIES, LAST ONE 03/08/19 -PORT RIGHT CHEST -LEFT SHOULDER ROTATOR CUFF REPAIR 05/01/20--DR. PALACIOS -CONTINUOUS GLUCOSE MONITOR PRESENT 06/25/20--LLQ OF ABDOMEN--NOT PRESENT 10/2020 -BILATERAL CATARACT SURGERY 10/2020 -PERIPHERAL ANGIOGRAM 05/02/[address] FELIX: SEVERE BILATERAL SUPERFICIAL FEMORAL ARTERY DISEASE AND RECOMMENDED BILATERAL FEMORAL-POPLITEAL SURGERY--REFERRED TO DR. SAWYER AT [facility] HISTORY OF EXTREME NON-COMPLIANCE IN ALL ASPECTS OF CARE Physical Exam Vital Signs Vital Signs - First Documented 11/25/21 08:05 Temp 35.3 Pulse 60 Resp 20 B/P (MAP) 104/45 (64) Pulse Ox 95 O2 Delivery Nasal Cannula O2 Flow Rate 2.00 Capillary Refill : Less Than 3 Seconds Height, Weight, BMI Height: 5'1.00" Weight: 122lbs. 1.0oz. 55.470577qi; 21.00 BMI Method:Estimated General Appearance: WD/WN, Moderate Distress HEENT: PERRL/EOMI, Normal ENT Inspection, Other (Mucous membranes somewhat dry) Neck: Normal Inspection Respiratory: Lungs Clear, Normal Breath Sounds, No Accessory Muscle Use, No Respiratory Distress Cardiovascular: Regular Rate, Rhythm, No Edema, No Murmur Gastrointestinal: Normal Bowel Sounds, Non Tender, Soft Back: Other (Deep ulcer over the coccyx) Extremity: Normal Inspection, No Pedal Edema Neurologic/Psychiatric: Alert, Other (Generalized weakness, lower extremities greater than upper extremities) Skin: Normal Color, Warm/Dry, Other (Deep coccygeal ulcer) Focused Exam Lactate Level 11/25/21 08:15: Lactic Acid Level 1.02 Lactic Acid Level Laboratory Tests Test 11/25/21 08:15 Lactic Acid Level 1.02 MMOL/L (0.50-2.00) Progress/Results/Core Measures Suspected Sepsis SIRS Temperature: Pulse: 60 Respiratory Rate: 20 Laboratory Tests 11/25/21 08:15: White Blood Count 17.2H Blood Pressure 104 /45 Mean: 64 11/25/21 08:15: Lactic Acid Level 1.02 Laboratory Tests 11/25/21 08:15: Creatinine 1.52H, INR Comment 1.0, Platelet Count 298, Total Bilirubin 0.3 Results/Orders Lab Results Laboratory Tests Test 11/25/21 08:07 11/25/21 08:15 11/25/21 08:26 11/25/21 08:40 Range/Units Influenza Type A Antigen NEGATIVE NEGATIVE Influenza Type B Antigen NEGATIVE NEGATIVE SARS-CoV-2 RNA (RT-PCR) Negative Negative White Blood Count 17.2 H 4.3-11.0 10^3/uL Red Blood Count 3.63 L 3.80-5.11 10^6/uL Hemoglobin 10.7 L 11.5-16.0 g/dL Hematocrit 34 L 35-52 % Mean Corpuscular Volume 93 80-99 fL Mean Corpuscular Hemoglobin 30 25-34 pg Mean Corpuscular Hemoglobin Concent 32 32-36 g/dL Red Cell Distribution Width 14.2 10.0-14.5 % Platelet Count 298 130-400 10^3/uL Mean Platelet Volume 10.2 9.0-12.2 fL Immature Granulocyte % (Auto) 1 % Neutrophils (%) (Auto) 83 H 42-75 % Lymphocytes (%) (Auto) 11 L 12-44 % Monocytes (%) (Auto) 4 0-12 % Eosinophils (%) (Auto) 0 0-10 % Basophils (%) (Auto) 1 0-10 % Neutrophils # (Auto) 14.2 H 1.8-7.8 10^3/uL Lymphocytes # (Auto) 1.9 1.0-4.0 10^3/uL Monocytes # (Auto) 0.7 0.0-1.0 10^3/uL Eosinophils # (Auto) 0.0 0.0-0.3 10^3/uL Basophils # (Auto) 0.1 0.0-0.1 10^3/uL Immature Granulocyte # (Auto) 0.2 H 0.0-0.1 10^3/uL Neutrophils % (Manual) 84 % Lymphocytes % (Manual) 8 % Monocytes % (Manual) 4 % Eosinophils % (Manual) 2 % Basophils % (Manual) 0 % Band Neutrophils 2 % Blood Morphology Comment NORMAL Erythrocyte Sedimentation Rate 81 H 0-30 MM/HR Prothrombin Time 13.3 12.2-14.7 SEC INR Comment 1.0 0.8-1.4 Activated Partial Thromboplast Time 29 24-35 SEC Sodium Level 141 135-145 MMOL/L Potassium Level 4.3 3.6-5.0 MMOL/L Chloride Level 105 98-107 MMOL/L Carbon Dioxide Level 27 21-32 MMOL/L Anion Gap 9 5-14 MMOL/L Blood Urea Nitrogen 34 H 7-18 MG/DL Creatinine 1.52 H 0.60-1.30 MG/DL Estimat Glomerular Filtration Rate 35 BUN/Creatinine Ratio 22 Glucose Level 154 H 70-105 MG/DL Lactic Acid Level 1.02 0.50-2.00 MMOL/L Calcium Level 9.0 8.5-10.1 MG/DL Corrected Calcium 9.8 8.5-10.1 MG/DL Total Bilirubin 0.3 0.1-1.0 MG/DL Aspartate Amino Transf (AST/SGOT) 11 5-34 U/L Alanine Aminotransferase (ALT/SGPT) 6 0-55 U/L Alkaline Phosphatase 57 40-136 U/L C-Reactive Protein High Sensitivity 5.10 H 0.00-0.50 MG/DL Total Protein 7.1 6.4-8.2 GM/DL Albumin 3.0 L 3.2-4.5 GM/DL Glucometer 129 H 70-110 MG/DL Test 11/25/21 10:50 Range/Units Urine Color YELLOW Urine Clarity CLEAR Urine pH 6.5 5-9 Urine Specific [place] 1.020 1.016-1.022 Urine Protein 2+ H NEGATIVE Urine Glucose (UA) NEGATIVE NEGATIVE Urine Ketones NEGATIVE NEGATIVE Urine Nitrite NEGATIVE NEGATIVE Urine Bilirubin NEGATIVE NEGATIVE Urine Urobilinogen 0.2 < = 1.0 MG/DL Urine Leukocyte Esterase NEGATIVE NEGATIVE Urine RBC (Auto) NEGATIVE NEGATIVE Urine RBC NONE /HPF Urine WBC NONE /HPF Urine Squamous Epithelial Cells NONE /HPF Urine Crystals NONE /LPF Urine Bacteria NEGATIVE /HPF Urine Casts NONE /LPF Urine Mucus NEGATIVE /LPF Urine Culture Indicated NO My Orders Orders - WARD QUIROGA MD Cbc With Automated Diff (11/25/21 08:11) Comprehensive Metabolic Panel (11/25/21 08:11) Hs C Reactive Protein (11/25/21 08:11) Ua Culture If Indicated (11/25/21 08:11) Ed Iv/Invasive Line Start (11/25/21 08:11) Covid 19 Inhouse Test (11/25/21 08:11) Influenza A & B Antigens (11/25/21 08:11) Manual Differential (11/25/21 08:15) Coronavirus Sars-Cov-2 So 2018 (11/25/21 08:40) Chest 1 View, Ap/Pa Only (11/25/21 11:44) Erythrocyte Sedimentation Rate (11/25/21 12:35) Lactated Ringers (Lr 1000 Ml Iv Solution (11/25/21 12:45) Ct Pelvis Wo (11/25/21 12:35) Blood Culture (11/25/21 12:38) Sputum Culture (11/25/21 12:38) Protime With Inr (11/25/21 12:38) Partial Thromboplastin Time (11/25/21 12:38) Vital Signs Adult Sepsis Patie Q15M (11/25/21 12:38) O2 (11/25/21 12:38) Remove Rings In Anticipation O (11/25/21 12:38) Lactic Acid Analyzer (11/25/21 12:38) Cefepime Injection (Maxipime Injection) (11/25/21 12:45) Medications Given in ED Current Medications Medications Dose Ordered Sig/Jackie Route Start Time Stop Time Status Last Admin Dose Admin Cefepime HCl 2000 mg/Sodium Chloride 50 ml @ 100 mls/hr ONCE ONCE IV 11/25/21 12:45 11/25/21 13:14 DC 11/25/21 14:08 100 MLS/HR Lactated Ringer's 1,000 ml @ 0 mls/hr Q0M ONCE IV 11/25/21 12:45 11/25/21 12:46 DC 11/25/21 13:12 1,000 MLS/HR Vital Signs/I&O 11/25/21 11/25/21 08:05 08:05 Temp 35.3 Pulse 60 Resp 20 B/P (MAP) 104/45 (64) Pulse Ox 95 93 O2 Delivery Nasal Cannula Nasal Cannula O2 Flow Rate 2.00 2.00 Capillary Refill : Less Than 3 Seconds Blood Pressure Mean: 64 Progress Note : Time: 14:45 Progress Note Patient was found to have bilateral infiltrates on chest x-ray with a leukocytosis of the 17,000. She also was noted to have a deep wound over the coccyx. This was further evaluated with CT of the pelvis which was concerning for possible early osteomyelitis of the distal coccyx. Upon further discussion with Dr. Li and review of the chart from prior admission, she also had a lumbar compression fracture concerning for pathologic fracture. The details of follow-up care of this lesion are unknown to me at this time. This had been evaluated with CT and MRI on her prior admission. Patient's hypoglycemia had resolved with the glucagon she received at the long-term. Due to her multiple acute issues, admission was deemed appropriate and was discussed with Dr. Li. She had renal insufficiency which was treated with a liter of IV fluids in the ER. Antibiotic therapy was initiated with cefepime. Diagnostic Imaging Diagonstic Imaging: Xray Plain Films/CT/US/NM/MRI: chest Comments NAME: VALENTE HARPER MED REC#: [id number] PT STATUS: REG ER : 1960 PHYSICIAN: WARD QUIROGA MD ADMIT DATE: 11/25/21/ER Signed Date of Exam:11/25/21 CHEST 1 VIEW, AP/PA ONLY INDICATION: Leukocytosis Portable chest 11:56 AM Right IJ Port-A-Cath tip projects over the cavoatrial junction. There is a loop recorder in the left lower chest. There is a dense consolidating infiltrate in the perihilar region of left lung. There is some interstitial infiltrate at both lung bases. IMPRESSION: Bilateral pulmonary infiltrates consistent with pneumonia. These are new since 10/23/2021. Dictated by: Dictated on workstation # [id number] Dict: 11/25/21 1212 Trans: 11/25/21 1241 [facility] [id number] Interpreted by: VALENTIN PORTER MD Electronically signed by: VALENTIN PORTER MD 11/25/21 1241 Diagonstic Imaging: CT Plain Films/CT/US/NM/MRI: pelvis Comments CT viewed by me and report reviewed. See report below: NAME: VALENTE HARPER [facility] REC#: [id number] PT STATUS: REG ER : 1960 PHYSICIAN: WARD QUIROGA MD ADMIT DATE: 11/25/21/ER Draft Date of Exam:11/25/21 CT PELVIS WO PROCEDURE: CT pelvis without contrast. TECHNIQUE: Multiple contiguous axial images were obtained through the pelvis without the use of intravenous contrast. Sagittal and coronal reformations were performed. Auto Exposure Controls were utilized during the CT exam to meet ALARA standards for radiation dose reduction. INDICATION: Deep sacral wound. FINDINGS: The CT abdomen/pelvis exam of 09/13/2021 failed to show any soft tissue abnormality involving the sacrum. In the interval since the prior study, however, a 1.4 x 2.1 cm soft tissue density has developed along the posterior aspect of the sacrococcygeal junction just to the left of midline. The sagittal images also suggest there is a small skin ulceration in this area. This soft tissue density is most likely due to an inflammatory/infectious process, and there does appear to be slight thinning of the posterior cortex of the first coccygeal segment on the left. This may be secondary to osteomyelitis. If further imaging is desired, then MRI would be recommended. There is no drainable abscess evident in this area. There is no other mass or bony destruction identified. The images through the pelvis itself failed to show any sign of an acute abnormality. The Bateman catheter within the bladder seen previously has been removed. The bladder is fairly well distended and shows no definite abnormality. The uterus is small. There is a fair amount of fecal material throughout the visualized colon. The appendix is not well imaged, but there are no indirect signs of acute appendicitis. There is no pelvic mass or free fluid collection noted. The postsurgical changes involving the lower lumbar spine seen previously are again evident and no different. IMPRESSION: 1. In the interval since the prior study, a 1.4 x 2.1 cm soft tissue density has developed along the posterior aspect of the sacrococcygeal junction just to the left of midline. This is most likely due to an inflammatory/infectious process, and the slight irregularity of the posterior cortex of the first coccygeal segment on the left does raise a question of osteomyelitis. If further imaging is desired, then MRI would be recommended. There is no drainable abscess evident in this area. 2. There is no acute abnormality noted otherwise. 3. These results were discussed with Dr. Quiroga in the ER. Dictated on workstation # [id number] Dict: 11/25/21 1316 Trans: 11/25/21 1330 [id number] Interpreted by: BLANE PARKS MD Departure Communication (Admissions) Time/Spoke to Admitting Phy: 13:50 Dr. Li Time/Spoke to Consulting Phy: 14:38 Dr. Pruett Impression Primary Impression: Bilateral pneumonia Qualified Codes: J18.9 - Pneumonia, unspecified organism Additional Impressions: Decubitus ulcer of coccygeal region, stage 4 Hyperglycemia Acute renal insufficiency Disposition: ADMITTED INPATIENT Condition: Stable Admissions Decision to Admit Reason: Admit from ER (General) Decision to Admit/Date: Nov 25, 2021 Time/Decision to Admit Time: 13:45 Departure-Patient Inst. Referrals: [facility] (PCP/Family) Primary Care Physician WARD QUIROGA MD Nov 25, 2021 14:45
[2021-11-25] MEDS ORDERED: ONDANSETRON 4 MG/2 ML (SDV) Z0FRAN IV PRN (15:45)
[2021-11-25 16:00] VITALS: BP 133/73
[2021-11-25] MEDS ORDERED: VANCOMYCIN 1 GM/NS 250 ML IVPB IV ONE ×2 (16:00)
[2021-11-25] MEDS ORDERED: DEXTROSE 50% 50 ML (IMS) SYR ONE (16:25)
[2021-11-25] MEDS ORDERED: CEPH500C PO (16:59)
[2021-11-25] MEDS ORDERED: INSU100I32 SQ (16:59)
[2021-11-25] MEDS ORDERED: DIVA125T2 PO (16:59)
[2021-11-25] MEDS ORDERED: SUCR1TAB36 PO (16:59)
[2021-11-25] MEDS ORDERED: IBUP-1779 PO (16:59)
[2021-11-25] MEDS ORDERED: ROPI0.5T4 PO (16:59)
[2021-11-25] MEDS ORDERED: INSU100I14 SQ (16:59)
[2021-11-25] MEDS ORDERED: MTP100TCR PO (16:59)
[2021-11-25] MEDS ORDERED: SENN-109 PO (16:59)
[2021-11-25] MEDS ORDERED: DOCU100C37 PO (16:59)
[2021-11-25] MEDS ORDERED: OXYC5TAB PO (16:59)
[2021-11-25] MEDS ORDERED: PROM25TA14 PO (16:59)
[2021-11-25] MEDS ORDERED: PANT40TA52 PO (16:59)
[2021-11-25] MEDS ORDERED: POLY17PO6 PO (16:59)
[2021-11-25] MEDS ORDERED: ATOR40TA70 PO (16:59)
[2021-11-25] MEDS ORDERED: AMLO-251 PO (16:59)
[2021-11-25] MEDS ORDERED: LISI20TA26 PO (16:59)
[2021-11-25] MEDS ORDERED: GABA800T10 PO ×2 (16:59)
[2021-11-25] MEDS: D5 1/2 NS 1000 ML IV SOLUTION 1,000 ML IV SCH (17:02)
[2021-11-25 19:21] VITALS: BP 127/61
[2021-11-25 19:58] VITALS: BP 127/61
[2021-11-25] MEDS: COLLAGENASE 30 GM (SANTYL) TUBE TP SCH (20:01)
[2021-11-25] MEDS ORDERED: RT-ALBUTEROL/IPRATROPIUM 3 ML (DUONEB) VIAL INH PRN (20:15)
--- NOTE | 2021-11-25 20:44 | Consultation - Surgery ---
History of Present Illness History of Present Illness Patient Consulted On(joshua/time) 11/25/21 17:36 Date Seen by Provider: Nov 25, 2021 Time Seen by Provider: 17:36 History of Present Illness Consult requested for decubitus ulcer. Patient is a 61-year-old female resident from [facility]. Patient was found to be hypoglycemic and altered and was transferred to the emergency department for further evaluation. Patient unable to provide me any information at this time. She does not answer any questions for me. She does follow some directions. Patient with chest x-ray demonstrating bilateral pneumonia. She has white count of 17,000. Patient appears to have pain all over. Patient pelvic CT demonstrating findings suggestive of osteomyelitis of the sacrum/coccyx. Allergies and Home Medications Allergies Coded Allergies: ketorolac (Verified Allergy, Severe, ANAPHYLAXIS, PT TAKES ASA AT HOME, 03/06/19) scopolamine (Verified Allergy, Mild, Rash, 03/21/19) exenatide (Verified Allergy, Unknown, NAUSEA, 03/06/19) NON STOP VOMITING latex (Verified Allergy, Unknown, RASH, 03/06/19) metoclopramide (Verified Allergy, Unknown, RESTLESS LEGS, 03/06/19) erythromycin base (Verified Adverse Reaction, Unknown, 03/21/19) Patient Home Medication List Home Medication List Reviewed: Yes Amlodipine Besylate (Amlodipine Besylate) 10 Mg Tablet, 10 MG PO DAILY, (Reported) Entered as Reported by: NAEL ABDI on 11/25/211658 Last Action: Reviewed Atorvastatin Calcium (Atorvastatin Calcium) 40 Mg Tablet, 40 MG PO 1800, (Reported) Entered as Reported by: NAEL ABDI on 11/25/211658 Last Action: Reviewed Cephalexin (Cephalexin) 500 Mg Capsule, 500 MG PO 0600,1000,1400, (Reported) Entered as Reported by: NAEL ABDI on 11/25/211658 Last Action: Reviewed Divalproex Sodium (Depakote) 125 Mg Tablet.dr, 125 MG PO 0600,1800, (Reported) Entered as Reported by: NAEL ABDI on 11/25/211658 Last Action: Reviewed Docusate Sodium (Docusate Sodium) 100 Mg Capsule, 100 MG PO Q12H PRN for CONSTIPATION-1ST LINE, (Reported) Entered as Reported by: NAEL ABDI on 11/25/211658 Last Action: Reviewed Gabapentin (Gabapentin) 800 Mg Tablet, 1,600 MG PO HS, (Reported) Entered as Reported by: NAEL ABDI on 11/25/211658 Last Action: Reviewed Gabapentin (Gabapentin) 800 Mg Tablet, 800 MG PO DAILY, (Reported) Entered as Reported by: NAEL ABDI on 11/25/211658 Last Action: Reviewed Ibuprofen (Ibuprofen) 400 Mg Tablet, 400 MG PO Q6H PRN for PAIN, (Reported) Entered as Reported by: NAEL ABDI on 11/25/211658 Last Action: Reviewed Insulin Aspart (Novolog Flexpen) 300 Units/3 Ml Solution, UNITS SQ AC, (Reported) Entered as Reported by: NAEL ABDI on 11/25/211658 Last Action: Reviewed Insulin Degludec (Tresiba Flextouch U-100) 100 Unit/1 Ml Insuln.pen, 30 UNIT SQ DAILY, (Reported) Entered as Reported by: NAEL ABDI on 11/25/211658 Last Action: Reviewed Lisinopril (Lisinopril) 20 Mg Tablet, 20 MG PO 1000, (Reported) Entered as Reported by: NAEL ABDI on 11/25/211658 Last Action: Reviewed Metoprolol Succinate (Metoprolol Succinate) 100 Mg Tab.er.24h, 100 MG PO 1800, (Reported) Entered as Reported by: NAEL ABDI on 11/25/211658 Last Action: Reviewed Oxycodone HCl (Oxycodone HCl) 5 Mg Tablet, 20 MG PO Q4H PRN for PAIN-SEVERE (8- 10), (Reported) Entered as Reported by: NAEL ABDI on 11/25/211658 Last Action: Reviewed Pantoprazole Sodium (Pantoprazole Sodium) 40 Mg Tablet.dr, 40 MG PO 0600,1400, (Reported) Entered as Reported by: NAEL ABDI on 11/25/211658 Last Action: Reviewed Polyethylene Glycol 3350 (Miralax) 17 Gm Powd.pack, 17 GM PO 0600,1800, (Reported) Entered as Reported by: NAEL ABDI on 11/25/211658 Last Action: Reviewed Promethazine HCl (Promethazine Tablet) 25 Mg Tablet, 25 MG PO Q12H PRN for NAUSEA/VOMITING-2ND LINE, (Reported) Entered as Reported by: NAEL ABDI on 11/25/211658 Last Action: Reviewed Ropinirole HCl (Ropinirole HCl) 0.5 Mg Tablet, 0.5 MG PO 1800, (Reported) Entered as Reported by: NAEL ABDI on 11/25/211658 Last Action: Reviewed Sennosides/Docusate Sodium (Senna-S Tablet) 1 Each Tablet, 1 EACH PO DAILY, (Reported) Entered as Reported by: NAEL ABDI on 11/25/211658 Last Action: Reviewed Sucralfate (Carafate) 1 Gm Tablet, 1 GM PO ACHS, (Reported) Entered as Reported by: NAEL ABDI on 11/25/211658 Last Action: Reviewed Discontinued Medications Amlodipine Besylate (Amlodipine Besylate) 10 Mg Tablet, 10 MG PO DAILY Discontinued Reason: No Longer Taking Prescribed by: AELXX ZIMMER on 10/28/211812 Last Action: Discontinued Atorvastatin Calcium (Atorvastatin Calcium) 20 Mg Tablet, 20 MG PO HS Discontinued Reason: No Longer Taking Prescribed by: ALEXX ZIMMER on 10/28/211812 Last Action: Discontinued Docusate Sodium (Docusate Sodium) 100 Mg Capsule, 100 MG PO BID PRN for CONSTIPATION-1ST LINE Discontinued Reason: No Longer Taking Prescribed by: ALEXX ZIMMER on 10/28/21 1109 Last Action: Discontinued Fentanyl (Fentanyl Patch 25 MCG) 1 Each Patch.td72, 25 MCG TOP Q72H Discontinued Reason: No Longer Taking Prescribed by: ALEXX ZIMMER on 10/28/21 1400 Last Action: Discontinued Gabapentin (Gabapentin) 800 Mg Tablet, 1,600 MG PO HS Discontinued Reason: No Longer Taking Prescribed by: ALEXX ZIMMER on 10/28/211812 Last Action: Discontinued Gabapentin (Gabapentin) 800 Mg Tablet, 800 MG PO DAILY Discontinued Reason: No Longer Taking Prescribed by: ALEXX ZIMMER on 10/28/211812 Last Action: Discontinued Insulin Determir (Levemir) 1,000 Units/10 Ml Soln, 5 UNIT SQ HS Discontinued Reason: No Longer Taking Prescribed by: ALEXX ZIMMER on 10/28/211815 Last Action: Discontinued Lisinopril (Lisinopril) 20 Mg Tablet, 20 MG PO DAILY Discontinued Reason: No Longer Taking Prescribed by: ALEXX ZIMMER on 10/28/211812 Last Action: Discontinued Methocarbamol (Methocarbamol) 750 Mg Tablet, 750 MG PO QID Discontinued Reason: No Longer Taking Prescribed by: ALEXX ZIMMER on 10/28/211108 Last Action: Discontinued Metoprolol Succinate (Metoprolol Succinate) 100 Mg Tab.er.24h, 100 MG PO DAILY Discontinued Reason: No Longer Taking Prescribed by: ALEXX ZIMMER on 10/28/211812 Last Action: Discontinued Morphine Sulfate (Morphine Sulfate ER) 30 Mg Tablet.er, 30 MG PO Q12HR Discontinued Reason: No Longer Taking Prescribed by: ALEXX ZIMMER on 10/28/211399 Last Action: Discontinued Oxycodone Hcl (Oxyir Tablet) 5 Mg Tab, 20 MG PO Q4H PRN for PAIN-SEVERE (8-10) Discontinued Reason: No Longer Taking Prescribed by: ALEXX ZIMMER on 10/28/211399 Last Action: Discontinued Pantoprazole Sodium (Pantoprazole Sodium) 40 Mg Tablet.dr, 40 MG PO BIDAC Discontinued Reason: No Longer Taking Prescribed by: ALEXX ZIMMER on 10/28/211812 Last Action: Discontinued Polyethylene Glycol 3350 (Polyethylene Glycol 3350) 17 Gm Powd.pack, 17 GM PO BID Discontinued Reason: No Longer Taking Prescribed by: ALEXX ZIMMER on 10/28/211108 Last Action: Discontinued Promethazine HCl (Promethazine Tablet) 25 Mg Tablet, 25 MG PO Q12H PRN for NAUSEA/VOMITING-1ST LINE Discontinued Reason: No Longer Taking Prescribed by: ALEXX ZIMMER on 10/28/211812 Last Action: Discontinued Ropinirole HCl (Ropinirole HCl) 0.25 Mg Tablet, 0.5 MG PO HS Discontinued Reason: No Longer Taking Prescribed by: ALEXX ZIMMER on 10/28/211812 Last Action: Discontinued Sennosides/Docusate Sodium (Stool Softener-Laxative Tablet) 1 Each Tablet, 1 EA PO DAILY Discontinued Reason: No Longer Taking Prescribed by: ALEXX ZIMMER on 10/28/211108 Last Action: Discontinued Sucralfate (Sucralfate) 1 Gm Tablet, 1 GM PO ACHS Discontinued Reason: No Longer Taking Prescribed by: ALEXX ZIMMER on 10/28/211812 Last Action: Discontinued Past Gsgttqf-Bipmrw-Zwhlfk Hx Patient Social History Drug of Choice: NARCOTIC ABUSE Smoking Status: Current Everyday Smoker Type Used: Cigarettes 2nd Hand Smoke Exposure: No Recent Hopitalizations: Yes Alcohol Use?: No Have you traveled recently?: No Immunizations Up To Date Tetanus Booster (TDap): Unknown PED Vaccines UTD: No Date of Pneumonia Vaccine: Nov 06, 2019 Date of Influenza Vaccine: Aug 11, 2021 Seasonal Allergies Seasonal Allergies: Yes Surgeries History of Surgeries: Yes (EGD) Surgeries: Cardiac, Coronary Stent, Orthopedic Respiratory History of Respiratory Disorde: Yes Respiratory Disorders: COPD Cardiovascular History of Cardiac Disorders: Yes Cardiac Disorders: Hypertension Neurological History of Neurological Disord: Yes Neurological Disorders: Dementia, Neuropathy Reproductive System Hx Reproductive Disorders: No Sexually Transmitted Disease: No HIV/AIDS: No 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 Disorders: Denies 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 Genitourinary History of Genitourinary Disor: Yes Genitourinary Disorders: Renal Failure Gastrointestinal History of Gastrointestinal Di: Yes Gastrointestinal Disorders: Gastroesophageal Reflux, Gastrointestinal Bleed Musculoskeletal History of Musculoskeletal Dis: Yes Musculoskeletal Disorders: Degenerate Disk Disease, Arthritis, Chronic Back Pain Endocrine History of Endocrine Disorders: Yes Endocrine Disorders: Diabetes, Non-Insulin dep HEENT History of HEENT Disorders: Yes HEENT Disorders: Macular Degeneration Loss of Vision: Bilateral Hearing Impairment: Hard of Hearing Cancer History of Cancer: Yes Psychosocial History of Psychiatric Problem: Yes Behavioral Health Disorders: Anxiety Integumentary History of Skin or Integumenta: Yes Skin/Integumentary Disorders: Psoriasis Blood Transfusions History of Blood Disorders: No Adverse Reaction to a Blood Tr: No Reviewed Nursing Assessment Reviewed/Agree w Nursing PMH: Yes Family Medical History Significant Family History: Cancer, Diabetes, Hypertension Family Medial History: Cancer of mouth 19 FATHER ( of esophogeal cancer.) Cardiovascular disease 19 MOTHER G8 BROTHER Completed stroke 19 FATHER G8 BROTHER Diabetes mellitus G8 BROTHER FH: lung cancer 19 MOTHER Hypertension 19 FATHER Kidney disease 19 FATHER Myocardial infarction 19 MOTHER G8 BROTHER Respiratory disorder No Family History of: AIDS Review of Systems-General ROS-Unable to Obtain: Patient unable to provide at this time. Physical Exam-General Problems Physical Exam Vital Signs Vital Signs - First Documented 11/25/21 08:05 Temp 35.3 Pulse 60 Resp 20 B/P (MAP) 104/45 (64) Pulse Ox 95 O2 Delivery Nasal Cannula O2 Flow Rate 2.00 Capillary Refill : Less Than 3 Seconds General Appearance: no apparent distress, thin HEENT: PERRL/EOMI, normal ENT inspection Neck: non-tender, supple Respiratory: chest non-tender, no respiratory distress, no accessory muscle use Cardiovascular: regular rate, rhythm, no JVD Gastrointestinal: non tender, soft Back: vertebral tenderness (Lower back, decubitus ulcer stage IV) Extremities: non-tender, normal inspection Neurologic/Psychiatric: alert; No normal mood/affect, No oriented x 3 Skin: other (Decubitus ulcer stage IV with some surrounding erythema slightly.) Lymphatic: no adenopathy Data Review Labs Laboratory Tests 11/25/21 08:07: Influenza Type A Antigen NEGATIVE, Influenza Type B Antigen NEGATIVE, SARS-CoV-2 RNA (RT-PCR) Negative 11/25/21 08:15: White Blood Count 17.2H, Red Blood Count 3.63L, Hemoglobin 10.7L, Hematocrit 34L , Mean Corpuscular Volume 93, Mean Corpuscular Hemoglobin 30, Mean Corpuscular Hemoglobin Concent 32, Red Cell Distribution Width 14.2, Platelet Count 298, Mean Platelet Volume 10.2, Immature Granulocyte % (Auto) 1, Neutrophils (%) (Auto) 83H, Lymphocytes (%) (Auto) 11L, Monocytes (%) (Auto) 4, Eosinophils (%) (Auto) 0, Basophils (%) (Auto) 1, Neutrophils # (Auto) 14.2H, Lymphocytes # (Auto) 1.9, Monocytes # (Auto) 0.7, Eosinophils # (Auto) 0.0, Basophils # (Auto) 0.1, Immature Granulocyte # (Auto) 0.2H, Neutrophils % (Manual) 84, Lymphocytes % (Manual) 8, Monocytes % (Manual) 4, Eosinophils % (Manual) 2, Basophils % (Manual) 0, Band Neutrophils 2, Blood Morphology Comment NORMAL, Erythrocyte Sedimentation Rate 81H, Prothrombin Time 13.3, INR Comment 1.0, Activated Partial Thromboplast Time 29, Sodium Level 141, Potassium Level 4.3, Chloride [place] 105, Carbon Dioxide Level 27, Anion Gap 9, Blood Urea Nitrogen 34H, Creatinine 1.52H, Estimat Glomerular Filtration Rate 35, BUN/Creatinine Ratio 22, Glucose Level 154H, Lactic Acid Level 1.02, Calcium Level 9.0, Corrected Calcium 9.8, Total Bilirubin 0.3, Aspartate Amino Transf (AST/SGOT) 11, Alanine Aminotransferase (ALT/SGPT) 6, Alkaline Phosphatase 57, C-Reactive Protein High Sensitivity 5.10H, Total Protein 7.1, Albumin 3.0L 11/25/21 08:26: Glucometer 129H 11/25/21 08:40: 11/25/21 10:50: Urine Color YELLOW, Urine Clarity CLEAR, Urine pH 6.5, Urine Specific [place] 1.020, Urine Protein 2+H, Urine Glucose (UA) NEGATIVE, Urine Ketones NEGATIVE, Urine Nitrite NEGATIVE, Urine Bilirubin NEGATIVE, Urine Urobilinogen 0.2, Urine Leukocyte Esterase NEGATIVE, Urine RBC (Auto) NEGATIVE, Urine RBC NONE, Urine WBC NONE, Urine Squamous Epithelial Cells NONE, Urine Crystals NONE, Urine Bacteria NEGATIVE, Urine Casts NONE, Urine Mucus NEGATIVE, Urine Culture Indicated NO 11/25/21 16:25: Glucometer 19*L 11/25/21 16:30: Glucometer 278H 11/25/21 18:05: Glucometer 85 Assessment/Plan Assessment/Plan Assessment/Plan Bilateral pneumonia, Stage IV decubitus ulcer 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 Santyl for enzymatic debridement Continue abx for likely osteomyelitis May need surgical debridement if enzymatic does not work. Clinical Quality Measures Smoking Cessation Counseling: Counseling-Symptomatic: 3-10 Minutes HINA VICENTE DO Nov 25, 2021 20:44
[2021-11-25] MEDS ORDERED: DOCUSATE SODIUM 100 MG (COLACE) CAP PO PRN (21:30)
[2021-11-25] MEDS ORDERED: PROMETHAZINE 25 MG (PHENERGAN) TAB PO PRN (21:30)
[2021-11-25] MEDS: inSUlin ASPART (NovoLOG) 1 UNIT/0.01 ML (CHARGE PER UNIT) SC SCH (21:38)
[2021-11-25] MEDS: CEFEPIME 1,000 MG/NS 50 ML IVPB IV SCH ×2 (22:16)
[2021-11-26] VITALS (7 sets, daily range): BP systolic 143–175; BP diastolic 64–78
[2021-11-26] MEDS: GABAPENTIN 400 MG (NEURONTIN) CAP PO SCH ×3 (01:29→20:19)
[2021-11-26] MEDS: D5 1/2 NS 1000 ML IV SOLUTION 1,000 ML IV SCH (02:48)
[2021-11-26] MEDS: DIVALPROX SPRINKLE 125 MG (DEPAKOTE) CAP PO SCH ×2 (06:07→17:19)
[2021-11-26] MEDS: PANTOPRAZOLE 40 MG (PROTONIX) TAB PO SCH ×2 (06:07→13:54)
[2021-11-26] MEDS: SUCRALFATE 1 GM (CARAFATE) TAB PO SCH ×5 (06:07→20:26)
[2021-11-26] MEDS: polyethylene glycoL POWDER 17 GM (MIRALAX) PACK PO SCH ×2 (06:08→17:17)
[2021-11-26] MEDS: CEFEPIME 1,000 MG/NS 50 ML IVPB IV SCH ×6 (06:08→21:25)
--- NOTE | 2021-11-26 07:37 | Progress Note - Surgery ---
[facility] [employer] STUDENT 11/26/21 0737: Subjective Date Seen by a Provider: Nov 26, 2021 Time Seen by a Provider: 07:25 Subjective/Events-last exam Mrs. Urbano is laying in bed this morning and appears pretty uncomfortable. She is Alert and oriented this morning, she remembers coming to the hospital yesterday. She complains of pain in her low back. She has not had anything to eat or drink, no nausea or vomiting. She has been urinating without difficulty. LBM was last night, states there was no blood or pain with that. Due to her back she does not ambulate. Nurse states they have been doing wound carem applying sanytl. She is on abx. Review of Systems General: No Chills HEENT: No Head Aches Pulmonary: No Dyspnea, No Cough Cardiovascular: Edema; No: Chest Pain, Palpitations Gastrointestinal: No: Nausea, Vomiting, Abdominal Pain, Diarrhea, Constipation, Melena Genitourinary: No Dysuria, No Incontinence, No Hematuria Musculoskeletal: back pain; No: leg pain, foot pain Neurological: No: Confusion Focused Exam Lactate Level 11/25/21 08:15: Lactic Acid Level 1.02 Objective Exam Vital Signs Date Time Temp Pulse Resp B/P (MAP) Pulse Ox O2 Delivery O2 Flow Rate FiO2 11/26/21 04:00 37.1 82 16 144/65 (91) 97 Nasal Cannula 2.00 11/26/21 02:35 Nasal Cannula 11/26/21 01:00 72 11/26/21 00:15 36.4 74 12 145/64 (91) 95 Nasal Cannula 2.00 11/25/21 20:10 Nasal Cannula 2.00 11/25/21 19:58 36.4 75 97 11/25/21 19:21 36.4 75 18 127/61 (83) 97 Nasal Cannula 2.00 11/25/21 19:00 72 11/25/21 16:33 74 11/25/21 16:00 37.4 82 18 133/73 (93) 100 Nasal Cannula 2.00 11/25/21 15:30 Nasal Cannula 2.00 11/25/21 15:12 66 18 128/66 92 Nasal Cannula 2.00 2.00 11/25/21 08:05 35.3 60 20 104/45 (64) 93 Nasal Cannula 2.00 11/25/21 08:05 95 Nasal Cannula 2.00 I & O 11/26/21 06:59 Intake Total 2300 ml Output Total 550 ml Balance 1750 ml Capillary Refill : Less Than 3 Seconds General Appearance: WD/WN, Mild Distress HEENT: Other (Mucus membranes a little dry) Respiratory: Lungs Clear, Normal Breath Sounds, No Accessory Muscle Use, No Respiratory Distress Cardiovascular: Regular Rate, Rhythm, No Edema, No Murmur, Other (Port on R side) Peripheral Pulses: 2+ Dorsalis Pedis (R), 2+ Left Dors-Pedis (L), 2+ Radial Pulses (R), 2+ Radial Pulses (L) Gastrointestinal: normal bowel sounds, non tender, soft Extremity: Normal Inspection, No Calf Tenderness, No Pedal Edema, Other (Leg compression in place) Neurologic/Psychiatric: Alert, Oriented x3 Skin: Normal Color, Warm/Dry, Other (Coccygeal ulcer, santyl in place, dressed, there is no leaking through the dressing. There is a little necrotic tissue) Results Lab Laboratory Tests 11/25/21 08:07: Influenza Type A Antigen NEGATIVE, Influenza Type B Antigen NEGATIVE, SARS-CoV-2 RNA (RT-PCR) Negative 11/25/21 08:15: White Blood Count 17.2H, Red Blood Count 3.63L, Hemoglobin 10.7L, Hematocrit 34L , Mean Corpuscular Volume 93, Mean Corpuscular Hemoglobin 30, Mean Corpuscular H emoglobin Concent 32, Red Cell Distribution Width 14.2, Platelet Count 298, Mean Platelet Volume 10.2, Immature Granulocyte % (Auto) 1, Neutrophils (%) (Auto) 83H, Lymphocytes (%) (Auto) 11L, Monocytes (%) (Auto) 4, Eosinophils (%) (Auto) 0, Basophils (%) (Auto) 1, Neutrophils # (Auto) 14.2H, Lymphocytes # (Auto) 1.9, Monocytes # (Auto) 0.7, Eosinophils # (Auto) 0.0, Basophils # (Auto) 0.1, Immature Granulocyte # (Auto) 0.2H, Neutrophils % (Manual) 84, Lymphocytes % (Manual) 8, Monocytes % (Manual) 4, Eosinophils % (Manual) 2, Basophils % (Manual) 0, Band Neutrophils 2, Blood Morphology Comment NORMAL, Erythrocyte Sedimentation Rate 81H, Prothrombin Time 13.3, INR Comment 1.0, Activated Partial Thromboplast Time 29, Sodium Level 141, Potassium Level 4.3, Chloride Level 105, Carbon Dioxide Level 27, Anion Gap 9, Blood Urea Nitrogen 34H, Creatinine 1.52H, Estimat Glomerular Filtration Rate 35, BUN/Creatinine Ratio 22, Glucose Level 154H, Lactic Acid Level 1.02, Calcium Level 9.0, Corrected Calcium 9.8, Total Bilirubin 0.3, Aspartate Amino Transf (AST/SGOT) 11, Alanine Aminotransferase (ALT/SGPT) 6, Alkaline Phosphatase 57, C-Reactive Protein High Sensitivity 5.10H, Total Protein 7.1, Albumin 3.0L 11/25/21 08:26: Glucometer 129H 11/25/21 08:40: Coronavirus (COVID-19)(PCR) Negative 11/25/21 10:50: Urine Color YELLOW, Urine Clarity CLEAR, Urine pH 6.5, Urine Specific [place] 1.020, Urine Protein 2+H, Urine Glucose (UA) NEGATIVE, Urine Ketones NEGATIVE, Urine Nitrite NEGATIVE, Urine Bilirubin NEGATIVE, Urine Urobilinogen 0.2, Urine Leukocyte Esterase NEGATIVE, Urine RBC (Auto) NEGATIVE, Urine RBC NONE, Urine WBC NONE, Urine Squamous Epithelial Cells NONE, Urine Crystals NONE, Urine Bacteria NEGATIVE, Urine Casts NONE, Urine Mucus NEGATIVE, Urine Culture Indicated NO 11/25/21 16:25: Glucometer 19*L 11/25/21 16:30: Glucometer 278H 11/25/21 18:05: Glucometer 85 11/25/21 21:14: Glucometer 143H 11/26/21 00:24: Glucometer 252H 11/26/21 05:08: Glucometer 253H Assessment/Plan Assessment/Plan Assessment/Plan Bilateral pneumonia, Stage IV decubitus ulcer 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 Nurse applied more santyl this morning, wound is being dressed. Will keep evaluating wound and will take to OR for debridement if necessary. Continue on abx for both her suspected osteomyelitits and bilateral PNA. Her hypoglycemia is resolved at 253 this morning. She is on insulin. It appears she has had an increase in orientation, she was oriented x3 this morning. She is in a lot of pain with her low back, she is receiving oxycodone. Clinical Quality Measures Smoking Cessation Counseling: Counseling-Symptomatic: 3-10 Minutes WALLACE VILLEGAS DO 11/26/21 1533: Subjective Time Seen by a Provider: 13:24 Subjective/Events-last exam Pt seen and examined, complains of low back pain; can't really feel the ulcer. Review of Systems General: No Chills Pulmonary: No Dyspnea, No Cough Cardiovascular: No: Chest Pain, Palpitations Gastrointestinal: No: Nausea, Vomiting, Abdominal Pain Objective Exam General Appearance: WD/WN, Mild Distress HEENT: Other (Mucus membranes a little dry) Respiratory: Lungs Clear, Normal Breath Sounds, No Accessory Muscle Use, No Respiratory Distress Cardiovascular: Regular Rate, Rhythm, No Murmur Gastrointestinal: non tender, soft Extremity: Normal Inspection, Other (Leg compression in place) Skin: Other (Coccygeal ulcer, santyl in place, dressed, there is no leaking through the dressing. 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 Nurse applied more santyl this morning, wound is being dressed. Will keep evaluating wound and will take to OR for debridement if necessary. Continue on abx for both her suspected osteomyelitits and bilateral PNA. Her hypoglycemia is resolved at 253 this morning. She is on insulin. It appears she has had an increase in orientation, she was oriented x3 this morning. She is in a lot of pain with her low back, she is receiving oxycodone. Supervisory-Addendum Brief Verification & Attestation Participated in pt care: history, MDM, physical Personally performed: exam, history, MDM, supervision of care Care discussed with: Medical Student Procedures: n/a Verification and Attestation of Medical Student E/M Service A medical student performed and documented this service. I then reviewed and verified all information documented by the medical student and made modifications to such information, when appropriate. I personally performed a physical exam, medical decision making and then discussed any differences between the notes and made revisions as necessary to create one note. Wallace Villegas , 11/26/21 , 15:33 [facility] [employer] Nov 26, 2021 07:37 WALLACE VILLEGAS DO Nov 26, 2021 15:33
[2021-11-26] MEDS: inSUlin ASPART (NovoLOG) 1 UNIT/0.01 ML (CHARGE PER UNIT) SC SCH ×4 (07:45→21:19)
[2021-11-26] MEDS: SENNA W/DOCUSATE (SENOKOT S) TABLET PO SCH (09:01)
[2021-11-26] MEDS: COLLAGENASE 30 GM (SANTYL) TUBE TP SCH ×2 (09:02→20:19)
[2021-11-26] MEDS: NS IV 1000 ML 1,000 ML IV SCH ×3 (09:19→20:19)
[2021-11-26 09:31] LABS: HEMATOCRIT 28 % (35-52); MEAN CORPUSCULAR HEMOGLOBIN 30 pg (25-34); MEAN CORPUSCULAR HGB CONC 32 g/dL (32-36); MEAN CORPUSCULAR VOLUME 93 fL (80-99); MEAN PLATELET VOLUME 10.3 fL (9.0-12.2); PLATELET COUNT 231 10^3/uL (130-400); WHITE BLOOD COUNT 14.9 10^3/uL (4.3-11.0)
[2021-11-26 09:49] LABS: CALCIUM 8.7 MG/DL (8.5-10.1); CREATININE SERUM 1.31 MG/DL (0.60-1.30); POTASSIUM 3.9 MMOL/L (3.6-5.0)
--- NOTE | 2021-11-26 12:45 | History & Physical-Hospitalist ---
RENETTA BABB 11/26/21 1245: History of Present Illness HPI/Chief Complaint CC: Pneumonia HPI: History was difficultly to acquire due to patient's fatigue and foggy thinking. Patient had been suffering from congestion for past several months after her last hospitalization for pneumonia. She is unsure exactly when it started. Associated symptoms of cough. In regards to the wound on her back/coccyx, she is also unsure when it developed but it causes her significant discomfort. Denies any fevers or chills. Per chart review, patient was brought to ED via EMS from care home due to hypoglycemia. She was given glucagon and her blood sugars normalized. Chest x- ray was remarkable for pneumonia and CT of pelvis was concerning for osteomyelitis at coccyx/sacrum junction. Started on IV antibiotics in the ED. Source: patient, RN notes reviewed, EMS notes reviewed Exam Limitations: clinical condition Date Seen 11/26/21 Time Seen by a Provider: 10:30 Attending Physician Tabatha Covarrubias MD [facility] [place] Referring Physician Date of Admission Nov 25, 2021 at 14:57 Home Medications & Allergies Home Medications Reviewed patient Home Medication Reconciliation performed by pharmacy medication reconciliations optical coating technician and/or nursing. Patients Allergies have been reviewed. Allergies Allergies Coded Allergies ketorolac (Verified Allergy, Severe, ANAPHYLAXIS, PT TAKES ASA AT HOME, 03/06/19) scopolamine (Verified Allergy, Mild, Rash, 03/21/19) exenatide (Verified Allergy, Unknown, NAUSEA, 03/06/19) NON STOP VOMITING latex (Verified Allergy, Unknown, RASH, 03/06/19) metoclopramide (Verified Allergy, Unknown, RESTLESS LEGS, 03/06/19) erythromycin base (Verified Adverse Reaction, Unknown, 03/21/19) Past Qppaulh-Dhydgj-Nludfn Hx Patient Social History Tobacco Use?: Yes Tobacco type used: Cigarettes Smoking Status: Current Someday Smoker Substance use?: No Alcohol Use?: No Immunizations Up To Date Date of Influenza Vaccine: Aug 11, 2021 First/Initial COVID19 Vaccinat: JANUARY Second COVID19 Vaccination Sharif: FEBRUARY Tetanus Booster (TDap): Unknown Hepatitis A: No Hepatitis B: No PED Vaccines UTD: No Date of Pneumonia Vaccine: Nov 06, 2019 Seasonal Allergies Seasonal Allergies: Yes Current Status Communicates: Verbally Primary Language: Burkinan Preferred Spoken Language: Burkinan Is interpretation needed?: No Past Medical History Surgeries: Cardiac, Coronary Stent, Eye Surgery, Gallbladder, Orthopedic COPD Currently Using CPAP: No Currently Using BIPAP: No Hypertension Dementia, Neuropathy 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 Diabetes Mellitus Type 1 with poor control 2. Hypertension 3.Hyperlipidemia 4.Chronic Kidney Disease 5. Irritable Bowel Disorder 6. Fibromyalgia 7.Psoriasis 8.chronic neck and back pain- on chronic narcotics from pain management 9. hx of blood clots in the upper extremities 10. Anxiety 11. Tobaccoism 12. 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 GERD 14. Diverticulosis 15. Seizure Disorder PSH: 1.Renal stent 2.cholecystectomy 3.Laminectomy 5.ear tubes as a child Family Medical History Cancer of mouth 19 FATHER ( of esophogeal cancer.) Cardiovascular disease 19 MOTHER G8 BROTHER Completed stroke 19 FATHER G8 BROTHER Diabetes mellitus G8 BROTHER FH: lung cancer 19 MOTHER Hypertension 19 FATHER Kidney disease 19 FATHER Myocardial infarction 19 MOTHER G8 BROTHER Respiratory disorder No Family History of: AIDS Cancer, Diabetes, Hypertension SOCIAL HISTORY: -ETOH--RARELY USES -DRUGS--Rx NARCOTIC ABUSE -SMOKES 1 PPD PSH: -LINQ DEVICE PLACED 11/09/19 FOR REPORTED PALPITATIONS X 6 MONTHS, SINCE PERCOCET WAS DC'D -MULTIPLE CARDIAC CATHS--STENT X 1 TO LAD 07/13/15. LAST CATH 01/18/19--NO INTERVENTION -LUMBAR SPINE FUSION X 3--12/2002, 04/2007, AND 05/2007 -LUMBAR DISCECTOMY 10/2000--? LAMINECTOMY? -CERVICAL SPINE FUSION 11/2006 -CHOLECYSTECTOMY 1983 -BMT'S -LITHOTRIPSY AND RIGHT URETERAL STENT -EGD'S WITH ESOPHAGEAL DILATIONS -COLONOSCOPIES, LAST ONE 03/08/19 -PORT RIGHT CHEST -LEFT SHOULDER ROTATOR CUFF REPAIR 05/01/20--DR. PALACIOS -CONTINUOUS GLUCOSE MONITOR PRESENT 06/25/20--LLQ OF ABDOMEN--NOT PRESENT 10/2020 -BILATERAL CATARACT SURGERY 10/2020 -PERIPHERAL ANGIOGRAM 05/02/[address] FELIX: SEVERE BILATERAL SUPERFICIAL FEMORAL ARTERY DISEASE AND RECOMMENDED BILATERAL FEMORAL-POPLITEAL SURGERY--REFERRED TO DR. SAWYER AT [place] HISTORY OF EXTREME NON-COMPLIANCE IN ALL ASPECTS OF CARE Review of Systems Constitutional: No fever; weight loss EENTM: nose congestion Respiratory: cough Cardiovascular: No chest pain Gastrointestinal: diarrhea, nausea, vomiting Musculoskeletal: back pain Physical Exam Physical Exam Vital Signs Vital Signs - First Documented 11/25/21 08:05 Temp 35.3 Pulse 60 Resp 20 B/P (MAP) 104/45 (64) Pulse Ox 95 O2 Delivery Nasal Cannula O2 Flow Rate 2.00 Capillary Refill : Less Than 3 Seconds Height, Weight, BMI Height: 5'1.00" Weight: 122lbs. 1.0oz. 55.206975is; 20.64 BMI Method:Estimated General Appearance: Mild Distress Respiratory: Lungs Clear, Normal Breath Sounds, No Accessory Muscle Use, No Respiratory Distress Cardiovascular: Regular Rate, Rhythm, No Edema, No Murmur Gastrointestinal: Non Tender, Soft; No Distended Extremity: No Pedal Edema Neurologic/Psychiatric: Alert, Oriented x3, Other (Problems with memory and focus) Skin: Normal Color, Warm/Dry Results Results/Procedures Labs Laboratory Tests 11/25/21 08:15 11/26/21 09:10 Patient resulted labs reviewed. Imaging: Reviewed Imaging Films, Reviewed Imaging Report Imaging Chest x-ray, CT pelvis Meds vancomycin, cefepime, gabapentin, depakote, sucralfate, polyethylene glycol, protonix, ropinorole, atorvastatin, promethazine, oxycodone, duoneb, lovenox, insulin aspart, collagenase Assessment/Plan Admission Diagnosis Pneumonia Admission Status: Inpatient Order (span 2 midnights) Reason for Inpatient Admission: IV antibiotic treatment, evaluation and treatment of coccyx wound Assessment and Plan Pneumonia * Bilateral pneumonia discovered on CXR > Continue vancomycin and cefepime Sacral/coccygeal decubitus ulcer with underlying osteomyelitis * CT scan of pelvis with evidence of possible osteomyelitis at coccyx/sacral junction of left side of midline * General surgery following > Per general surgery, trying enzymatic debridement. If unsuccessful may try surgery. IDDM > Insulin aspart with meals if indicated. Monitor BG qAM and with meals. GERD > STRUCTURAL STEEL WORKER APPRENTICE protonix and carafate Seizure disorder > STRUCTURAL STEEL WORKER APPRENTICE depakote Nausea, vomiting > STRUCTURAL STEEL WORKER APPRENTICE promethazine, ondansetron HLD > STRUCTURAL STEEL WORKER APPRENTICE atorvastatin Restless leg syndrome > STRUCTURAL STEEL WORKER APPRENTICE ropinirole Chronic pain > STRUCTURAL STEEL WORKER APPRENTICE gabapentin oxycodone COPD * 1 PPD smoking history > PRN duoneb Bowel prophylaxis, constipation > polyethylene glycol, docusate, sennokot DVT prophylaxis > lovenox Clinical Quality Measures Smoking Cessation Counseling: Counseling-Symptomatic: 3-10 Minutes TABATHA COVARRUBIAS MD 11/26/212145: Past Kdutjal-Npujag-Qnvkzg Hx Family Medical History Cancer of mouth 19 FATHER ( of esophogeal cancer.) Cardiovascular disease 19 MOTHER G8 BROTHER Completed stroke 19 FATHER G8 BROTHER Diabetes mellitus G8 BROTHER FH: lung cancer 19 MOTHER Hypertension 19 FATHER Kidney disease 19 FATHER Myocardial infarction 19 MOTHER G8 BROTHER Respiratory disorder No Family History of: AIDS Physical Exam Physical Exam General Appearance: Mild Distress (appears uncomfortable) HEENT: Other (Right TM with chronic rupture, left TM with fluid but no erythema or purulence or retraction) Respiratory: Lungs Clear, Normal Breath Sounds Cardiovascular: Regular Rate, Rhythm, No Murmur Gastrointestinal: Normal Bowel Sounds, Non Tender, Soft Neurologic/Psychiatric: Alert, Other (sad affect) Skin: Other (sacral wound dressed, not seen at this time) Supervisory-Addendum Brief Verification & Attestation Participated in pt care: history, MDM, physical Personally performed: exam, history, MDM Care discussed with: Medical Student Procedures: n/a Verification and Attestation of Medical Student E/M Service Of note- on last admission diagnosed with possible pathologic compression fracture, this has still not been able to be addressed, I talked with the nurse practitioner covering her at the nursing facility and she states Itzel has been referred to [facility] and they are requesting an MRI with and without contrast (only had without contrast prior), so she may also need this for further work-up. I reviewed and verified all information documented by the medical student and made modifications to such information, when appropriate. I personally performed the physical exam and medical decision making. Tabatha Covarrubias, Nov 26, 2021,21:41 RENETTA BABB Nov 26, 2021 12:45 TABATHA COVARRUBIAS MD Nov 26, 2021 21:46
[2021-11-26] MEDS: ENOXAPARIN 40 MG/0.4 ML (LOVENOX) SYR SQ SCH (13:57)
[2021-11-26] MEDS: VANCOMYCIN 750 MG/NS 250 ML IVPB IV SCH ×2 (17:15)
[2021-11-26] MEDS: rOPINIRole 0.25 MG (REQUIP) TAB PO SCH (17:15)
[2021-11-27] VITALS (8 sets, daily range): BP systolic 161–180; BP diastolic 74–84
[2021-11-27] MEDS: DIVALPROX SPRINKLE 125 MG (DEPAKOTE) CAP PO SCH ×2 (05:11→17:46)
[2021-11-27] MEDS: PANTOPRAZOLE 40 MG (PROTONIX) TAB PO SCH ×2 (05:11→13:32)
[2021-11-27] MEDS: CEFEPIME 1,000 MG/NS 50 ML IVPB IV SCH ×6 (05:11→21:15)
[2021-11-27] MEDS: SUCRALFATE 1 GM (CARAFATE) TAB PO SCH ×4 (05:11→19:58)
[2021-11-27] MEDS: polyethylene glycoL POWDER 17 GM (MIRALAX) PACK PO SCH ×2 (05:12→17:46)
[2021-11-27 05:16] LABS: HEMATOCRIT 25 % (35-52); HEMOGLOBIN 7.8 g/dL (11.5-16.0); MEAN CORPUSCULAR HEMOGLOBIN 29 pg (25-34); MEAN CORPUSCULAR HGB CONC 32 g/dL (32-36); MEAN CORPUSCULAR VOLUME 93 fL (80-99); PLATELET COUNT 213 10^3/uL (130-400); WHITE BLOOD COUNT 10.3 10^3/uL (4.3-11.0)
[2021-11-27 05:44] LABS: POTASSIUM 3.6 MMOL/L (3.6-5.0)
[2021-11-27 05:46] LABS: CALCIUM 8.3 MG/DL (8.5-10.1)
[2021-11-27 05:50] LABS: CREATININE SERUM 1.18 MG/DL (0.60-1.30)
[2021-11-27] MEDS: inSUlin ASPART (NovoLOG) 1 UNIT/0.01 ML (CHARGE PER UNIT) SC SCH ×4 (06:16→21:15)
[2021-11-27] MEDS: NS IV 1000 ML 1,000 ML IV SCH ×2 (06:49→19:58)
--- NOTE | 2021-11-27 07:57 | Progress Note - Hospitalist ---
RENETTA BABB 11/27/21 0757: Subjective HPI/CC On Admission Date Seen by Provider: Nov 27, 2021 CC: Pneumonia HPI: History was difficultly to acquire due to patient's fatigue and foggy thinking. Patient had been suffering from congestion for past several months after her last hospitalization for pneumonia. She is unsure exactly when it star maria luisa. Associated symptoms of cough. In regards to the wound on her back/coccyx, she is also unsure when it developed but it causes her significant discomfort. Denies any fevers or chills. Per chart review, patient was brought to ED via EMS from custodial due to hypoglycemia. She was given glucagon and her blood sugars normalized. Chest x- ray was remarkable for pneumonia and CT of pelvis was concerning for osteomyelitis at coccyx/sacrum junction. Started on IV antibiotics in the ED. Subjective/Events-last exam Itzel is "hurting, hurting, hurting" this morning. Pain is localized to her back. 10/10 pain. Received pain meds 2 hours ago. She woke up 1-2x last night due to pain. Also reports slight chest pain that occurred while she was trying to fall asleep. She could not describe the pain, but stated it last for a few minutes. Review of Systems General: No Chills HEENT: No Head Aches Pulmonary: No Dyspnea, No Cough Cardiovascular: No: Edema Gastrointestinal: No: Nausea, Vomiting, Diarrhea, Constipation Genitourinary: No Dysuria Focused Exam Lactate Level 11/25/21 08:15: Lactic Acid Level 1.02 Objective Exam Vital Signs Vital Signs Date Time Temp Pulse Resp B/P (MAP) Pulse Ox O2 Delivery O2 Flow Rate FiO2 11/27/21 07:46 94 Room Air 11/27/21 04:07 36.8 71 18 176/84 (114) 11/26/21 09:00 2.00 Capillary Refill : Less Than 3 Seconds Results/Procedures Lab Laboratory Tests 11/26/21 09:10 11/27/21 05:01 Patient resulted labs reviewed. Imaging: Reviewed Imaging Films, Reviewed Imaging Report Assessment/Plan Assessment and Plan Assess & Plan/Chief Complaint Pneumonia * Bilateral pneumonia discovered on CXR > Continue vancomycin and cefepime Sacral/coccygeal decubitus ulcer with underlying osteomyelitis * CT scan of pelvis with evidence of possible osteomyelitis at coccyx/sacral junction of left side of midline * General surgery following > Per general surgery, trying enzymatic debridement. If unsuccessful may try surgery. IDDM > Insulin aspart with meals if indicated. Monitor BG qAM and with meals. GERD > AEROGRAPHER protonix and carafate Seizure disorder > AEROGRAPHER depakote Nausea, vomiting > AEROGRAPHER promethazine, ondansetron HLD > AEROGRAPHER atorvastatin Restless leg syndrome > AEROGRAPHER ropinirole Chronic pain > AEROGRAPHER gabapentin oxycodone COPD * 1 PPD smoking history > PRN duoneb Bowel prophylaxis, constipation > polyethylene glycol, docusate, sennokot DVT prophylaxis > lovenox Clinical Quality Measures Smoking Cessation Counseling: Counseling-Symptomatic: 3-10 Minutes MASON,12/17/21 0846: RENETTA BABB Nov 27, 2021 07:57 MASON,NovDec 17, 2021 08:46
--- NOTE | 2021-11-27 08:15 | Progress Note - Surgery ---
CRUZ CAMPA MED STUDENT 11/27/21 0815: Subjective Date Seen by a Provider: Nov 27, 2021 Time Seen by a Provider: 08:00 Subjective/Events-last exam Mrs. Urbano is lying in bed this morning. She states she is in pain in her low back that she would rate about a 7. She is still eating and drinking, complained of some nausea. She is on zofran. She is peeing and having bowel movements without pain or blood. LBM this morning. she does complain of some stomach tenderness this morning. She has not ambulated out of bed. She is still oriented x3 Review of Systems General: No Chills HEENT: No Head Aches, No Visual Changes Pulmonary: No Dyspnea, No Cough Cardiovascular: No: Chest Pain, Palpitations, Edema Gastrointestinal: Nausea, Abdominal Pain (Diffuse); No: Vomiting, Constipation, Melena Genitourinary: No Dysuria, No Frequency, No Hematuria Musculoskeletal: back pain (Lumbar); No: leg pain, foot pain Neurological: No: Confusion Focused Exam Lactate Level 11/25/21 08:15: Lactic Acid Level 1.02 Objective Exam Vital Signs Date Time Temp Pulse Resp B/P (MAP) Pulse Ox O2 Delivery O2 Flow Rate FiO2 11/27/21 07:46 94 Room Air 11/27/21 07:00 78 11/27/21 07:00 76 11/27/21 04:07 36.8 71 18 176/84 (114) 94 Room Air 11/27/21 01:00 69 11/26/21 23:52 36.9 80 18 157/76 (103) 93 Room Air 11/26/21 21:17 92 Room Air 11/26/21 20:07 37.0 79 18 163/78 (106) 95 Room Air 11/26/21 20:00 Room Air 11/26/21 19:00 90 11/26/21 16:03 36.9 11/26/21 15:30 73 20 143/66 (91) 97 Room Air 11/26/21 13:00 79 11/26/21 11:32 37.2 80 20 175/76 (109) 94 Room Air 11/26/21 09:00 Nasal Cannula 2.00 I & O 11/27/21 06:59 Intake Total 3390 ml Output Total 1650 ml Balance 1740 ml Capillary Refill : Less Than 3 Seconds General Appearance: Anxious, Mild Distress (appears uncomfortable) HEENT: Other (Mucus membranes a little dry) Respiratory: Chest Non Tender, Lungs Clear, Normal Breath Sounds, No Respiratory Distress Cardiovascular: Regular Rate, Rhythm, No Edema, No Murmur, Normal Peripheral Pulses Peripheral Pulses: 2+ Dorsalis Pedis (R), 2+ Left Dors-Pedis (L), 2+ Radial Pulses (R), 2+ Radial Pulses (L) Gastrointestinal: normal bowel sounds, soft, tenderness (diffuse tenderness, mild, no brusing or other abnormalities on abdominal exam) Extremity: No Calf Tenderness, No Pedal Edema Neurologic/Psychiatric: Alert, Oriented x3, Other (sad affect) Skin: Normal Color, Warm/Dry, Other (sacral wound dressed, there is still necrotic tissue but looks to be improved. There is some erythema around ulcer. the overlying bandage is moderatley soiled. ) Results Lab Laboratory Tests 11/26/21 09:10: White Blood Count 14.9H, Red Blood Count 3.00L, Hemoglobin 9.0L, Hematocrit 28L, Mean Corpuscular Volume 93, Mean Corpuscular Hemoglobin 30, Mean Corpuscular Hemoglobin Concent 32, Red Cell Distribution Width 14.2, Platelet Count 231, Mean Platelet Volume 10.3, Sodium Level 138, Potassium Level 3.9, Chloride Level 106, Carbon Dioxide Level 22, Anion Gap 10, Blood Urea Nitrogen 30H, Creatinine 1.31H, Estimat Glomerular Filtration Rate 41, BUN/Creatinine Ratio 23, Glucose Level 194H, Calcium Level 8.7 11/26/21 11:40: Glucometer 230H 11/26/21 17:00: Glucometer 148H 11/26/21 21:18: Glucometer 185H 11/26/21 23:24: Glucometer 210H 11/27/21 05:01: White Blood Count 10.3, Red Blood Count 2.65L, Hemoglobin 7.8L, Hematocrit 25L, Mean Corpuscular Volume 93, Mean Corpuscular Hemoglobin 29, Mean Corpuscular Hemoglobin Concent 32, Red Cell Distribution Width 13.9, Platelet Count 213, Mean Platelet Volume 10.0, Sodium Level 138, Potassium Level 3.6, Chloride Level 108H, Carbon Dioxide Level 22, Anion Gap 8, Blood Urea Nitrogen 27H, Creatinine 1.18, Estimat Glomerular Filtration Rate 46, BUN/Creatinine Ratio 23, Glucose Level 166H, Calcium Level 8.3L Microbiology 11/25/21 Blood Culture - Preliminary, Resulted Wendi Quintero Neg (ZIPPER TRIMMER) See Comments Assessment/Plan Assessment/Plan Assessment/Plan Bilateral pneumonia, Stage IV decubitus ulcer 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 Continuing to apply santyl and dressings, there appears to be a little bit of improvement with sacral ulcer this morning. Will keep evaluating wound and will take to OR for debridement if necessary. Continue on abx for both her suspected osteomyelitits and bilateral PNA. Her hypoglycemia is resolved at 210 this morning. She is on insulin. She was still oriented x3 this morning. She is in a lot of pain with her low back, she is receiving oxycodone. She stated she had a little bit of nausea w/ meals yesterday with no vomiting, she is on zofran. Clinical Quality Measures Smoking Cessation Counseling: Counseling-Symptomatic: 3-10 Minutes WALLACE AYON DO 11/27/21 1256: Subjective Time Seen by a Provider: 10:25 Subjective/Events-last exam Pt seen and examined, no changes from yesterday. Still complains of back pain. Review of Systems General: No Chills Pulmonary: No Dyspnea, No Cough Cardiovascular: No: Chest Pain, Palpitations Gastrointestinal: Nausea, Abdominal Pain (Diffuse); No: Vomiting Musculoskeletal: back pain (Lumbar) Objective Exam General Appearance: Anxious, Chronically ill, Mild Distress (appears uncomfortable), Thin Respiratory: Lungs Clear, Normal Breath Sounds, No Respiratory Distress Cardiovascular: Regular Rate, Rhythm, No Murmur Gastrointestinal: normal bowel sounds, soft, tenderness (diffuse tenderness, mild, no brusing or other abnormalities on abdominal exam) Neurologic/Psychiatric: Other (sad affect) Skin: Other (sacral wound dressed, there is still necrotic tissue but looks to be improved. There is some erythema around ulcer. the overlying bandage is moderatley soiled. ) Assessment/Plan Assessment/Plan Assessment/Plan Bilateral pneumonia, Stage IV decubitus ulcer with possible Osteomyelitis Hypoglycemia. Continuing to apply santyl and dressings, there appears to be a little bit of improvement with sacral ulcer this morning. Will keep evaluating wound and will take to OR for debridement if necessary. Continue on abx for both her suspected osteomyelitits and bilateral PNA. Her hypoglycemia is resolved at 210 this morning. She is on insulin. She was still oriented x3 this morning. She is in a lot of pain with her low back, she is receiving oxycodone. She stated she had a little bit of nausea w/ meals yesterday with no vomiting, she is on zofran. Supervisory-Addendum Brief Verification & Attestation Participated in pt care: history, MDM, physical Personally performed: exam, history, MDM, supervision of care Care discussed with: Medical Student Procedures: n/a Verification and Attestation of Medical Student E/M Service A medical student performed and documented this service. I then reviewed and verified all information documented by the medical student and made modifications to such information, when appropriate. I personally performed a physical exam, medical decision making and then discussed any differences between the notes and made revisions as necessary to create one note. Wallace Ayon , 11/27/21 , 12:56 CRUZ CAMPA MED STUDENT Nov 27, 2021 08:15 WALLACE AYON DO Nov 27, 2021 12:56
[2021-11-27] MEDS: SENNA W/DOCUSATE (SENOKOT S) TABLET PO SCH (08:26)
[2021-11-27] MEDS: GABAPENTIN 400 MG (NEURONTIN) CAP PO SCH ×2 (08:26→19:58)
[2021-11-27] MEDS: COLLAGENASE 30 GM (SANTYL) TUBE TP SCH ×2 (10:49→19:59)
--- NOTE | 2021-11-27 11:47 | Progress Note - Hospitalist ---
RENETTA BABB 11/27/21 1147: Subjective HPI/CC On Admission CC: Pneumonia HPI: History was difficultly to acquire due to patient's fatigue and foggy thin mihir. Patient had been suffering from congestion for past several months after her last hospitalization for pneumonia. She is unsure exactly when it started. Associated symptoms of cough. In regards to the wound on her back/coccyx, she is also unsure when it developed but it causes her significant discomfort. Denies any fevers or chills. Per chart review, [facility]. She was given glucagon and her blood sugars normalized. Chest x-ray was remarkable for pneumonia and CT of pelvis was concerning for osteomyelitis at coccyx/sacrum junction. Started on IV antibiotics in the ED. Subjective/Events-last exam Patient is "hurting, hurting, hurting" this morning. Pain is in her lower back and is 10/10. She woke up overnight 1-2x due to pain. Wants more pain meds, but had already received her cook pressure dose. She reports slight chest pain last night as she was falling asleep. She cannot describe chest pain, but it only lasted a couple of minutes. Denies headache, shortness of breath, n/v, c/d, dysuria, or swelling. Review of Systems General: Other (See subjective. ) Focused Exam Lactate Level 11/25/21 08:15: Lactic Acid Level 1.02 Objective Exam Vital Signs Vital Signs Date Time Temp Pulse Resp B/P (MAP) Pulse Ox O2 Delivery O2 Flow Rate FiO2 11/27/21 16:00 36.1 72 20 180/78 (112) 95 Room Air 11/26/21 09:00 2.00 Capillary Refill : Less Than 3 Seconds General Appearance: Mild Distress Neck: Normal Inspection Respiratory: Lungs Clear, Normal Breath Sounds, No Accessory Muscle Use Cardiovascular: Regular Rate, Rhythm, No Edema, No Murmur Gastrointestinal: Non Tender, Soft; No Distended Extremity: Non Tender, No Calf Tenderness, No Pedal Edema Neurologic/Psychiatric: Alert Skin: Normal Color, Warm/Dry Results/Procedures Lab Laboratory Tests 11/27/21 05:01 Patient resulted labs reviewed. Assessment/Plan Assessment and Plan Assess & Plan/Chief Complaint Pneumonia * Bilateral pneumonia discovered on CXR > Continue vancomycin and cefepime. Will consider transition to other antibiotic for intermediate card tender. Sacral/coccygeal decubitus ulcer with underlying osteomyelitis * CT scan of pelvis with evidence of possible osteomyelitis at coccyx/sacral junction of left side of midline * General surgery following > Per general surgery, continuing enzymatic debridement. If unsuccessful may take to OR. Anemia of chronic disease * hgb 7.8 this morning > Monitor with daily CBC. If Hgb drops below 7, will give blood transfusion. IDDM > Insulin aspart with meals if indicated. Monitor BG qAM and with meals. GERD > CORPORATE CONCIERGE protonix and carafate Seizure disorder > CORPORATE CONCIERGE depakote Nausea, vomiting > CORPORATE CONCIERGE promethazine, ondansetron HLD > CORPORATE CONCIERGE atorvastatin Restless leg syndrome > CORPORATE CONCIERGE ropinirole Chronic pain > CORPORATE CONCIERGE gabapentin oxycodone COPD * 1 PPD smoking history > PRN duoneb Bowel prophylaxis, constipation > polyethylene glycol, docusate, sennokot DVT prophylaxis > lovenox Time spent with patient (mins): 10 Clinical Quality Measures Smoking Cessation Counseling: Counseling-Symptomatic: 3-10 Minutes ALENA LI MD 11/27/212038: Subjective HPI/CC On Admission Time Seen by Provider: 11:15 Supervisory-Addendum Brief Verification & Attestation Participated in pt care: history, MDM, physical Personally performed: exam, history, MDM Care discussed with: Medical Student Procedures: n/a Verification and Attestation of Medical Student E/M Service I reviewed and verified all information documented by the medical student and made modifications to such information, when appropriate. I personally performed the physical exam and medical decision making. Alena Li, Nov 27, 2021,20:39 RENETTA BABB Nov 27, 2021 11:47 ALENA LI MD Nov 27, 2021 20:39
[2021-11-27] MEDS: ENOXAPARIN 40 MG/0.4 ML (LOVENOX) SYR SQ SCH (13:33)
[2021-11-27] MEDS ORDERED: TROUGH ORDER-PHARMACY XX ONE (15:00)
[2021-11-27] MEDS: VANCOMYCIN 750 MG/NS 250 ML IVPB IV SCH ×2 (16:32)
[2021-11-27] MEDS: rOPINIRole 0.25 MG (REQUIP) TAB PO SCH (17:46)
[2021-11-28] VITALS (7 sets, daily range): BP systolic 103–185; BP diastolic 57–82
[2021-11-28] MEDS: meTOprolol SUCCINATE 100 MG (TOPROL XL) TAB PO SCH ×2 (02:42→18:15)
[2021-11-28] MEDS: amLODIPine 10 MG (NORVASC) TAB PO SCH ×2 (02:42→09:35)
[2021-11-28] MEDS: polyethylene glycoL POWDER 17 GM (MIRALAX) PACK PO SCH ×2 (05:04→17:48)
[2021-11-28] MEDS: inSUlin ASPART (NovoLOG) 1 UNIT/0.01 ML (CHARGE PER UNIT) SC SCH ×5 (05:04→22:02)
[2021-11-28] MEDS: PANTOPRAZOLE 40 MG (PROTONIX) TAB PO SCH ×2 (05:18→14:16)
[2021-11-28] MEDS: SUCRALFATE 1 GM (CARAFATE) TAB PO SCH ×4 (05:18→22:02)
[2021-11-28] MEDS: CEFEPIME 1,000 MG/NS 50 ML IVPB IV SCH ×6 (05:18→22:02)
[2021-11-28] MEDS: DIVALPROX SPRINKLE 125 MG (DEPAKOTE) CAP PO SCH ×2 (05:19→18:15)
[2021-11-28 05:45] LABS: HEMATOCRIT 25 % (35-52); HEMOGLOBIN 8.4 g/dL (11.5-16.0); MEAN CORPUSCULAR HEMOGLOBIN 30 pg (25-34); MEAN CORPUSCULAR HGB CONC 34 g/dL (32-36); MEAN CORPUSCULAR VOLUME 89 fL (80-99); MEAN PLATELET VOLUME 9.8 fL (9.0-12.2); PLATELET COUNT 258 10^3/uL (130-400); WHITE BLOOD COUNT 10.3 10^3/uL (4.3-11.0)
[2021-11-28 05:55] LABS: POTASSIUM 3.5 MMOL/L (3.6-5.0)
[2021-11-28 05:56] LABS: CALCIUM 8.7 MG/DL (8.5-10.1)
[2021-11-28 06:01] LABS: CREATININE SERUM 1.09 MG/DL (0.60-1.30)
--- NOTE | 2021-11-28 08:18 | Progress Note - Surgery ---
CRUZ [employer] STUDENT 11/28/21 0818: Subjective Date Seen by a Provider: Nov 28, 2021 Time Seen by a Provider: 07:30 Subjective/Events-last exam Mrs. Urbano is sleeping in bed this morning. She is easily woken. States her pain is about the same as it has been the last couple of days. She is eating and drinking without nausea or vomiting okay. Denies dysuria, denies and bowel complications. Nursing has been changing her dressings and applying santyl. Nurse states that she is only using the pure-wick and that she soils them freqeuntly, her wound is always moist and she could benefit from mo catheter. Nursing also states wound looks worse. When I look at wound there is necrotic tissue, I think the area of erythema is a bit larger. May need to be debrided. Oriented x3 this morning. Review of Systems General: No Chills HEENT: No Head Aches, No Visual Changes, No Ear Pain Pulmonary: No Dyspnea, No Cough Cardiovascular: No: Chest Pain, Palpitations, Edema Gastrointestinal: No: Nausea, Vomiting, Abdominal Pain, Diarrhea, Constipation, Melena Genitourinary: No Dysuria, No Hematuria Musculoskeletal: back pain (Lumbar); No: leg pain, foot pain Neurological: No: Confusion Focused Exam Lactate Level 11/25/21 08:15: Lactic Acid Level 1.02 Objective Exam Vital Signs Date Time Temp Pulse Resp B/P (MAP) Pulse Ox O2 Delivery O2 Flow Rate FiO2 11/28/21 08:09 Room Air 11/28/21 07:00 61 11/28/21 03:56 36.0 64 18 160/71 (100) 92 Room Air 11/28/21 01:00 66 11/28/21 00:10 36.9 75 18 185/82 (116) 95 Room Air 11/27/21 20:52 35.8 87 94 21 11/27/21 20:07 94 Room Air 11/27/21 20:00 Room Air 11/27/21 19:45 35.8 75 20 179/80 (113) 96 Room Air 11/27/21 19:00 70 11/27/21 16:00 36.1 72 20 180/78 (112) 95 Room Air 11/27/21 12:32 36.8 74 20 171/74 (106) 95 Room Air 11/27/21 12:02 71 I & O 11/28/21 07:00 Intake Total 1190 ml Output Total 1050 ml Balance 140 ml Capillary Refill : Less Than 3 Seconds General Appearance: Mild Distress HEENT: Pharynx Normal (moist), Other (Mucus membranes a little dry) Respiratory: Chest Non Tender, Lungs Clear, Normal Breath Sounds, No Accessory Muscle Use Cardiovascular: Regular Rate, Rhythm, No Edema, No Murmur, Normal Peripheral Pulses Peripheral Pulses: 2+ Dorsalis Pedis (R), 2+ Left Dors-Pedis (L), 2+ Radial Pulses (R), 2+ Radial Pulses (L) Gastrointestinal: normal bowel sounds, non tender, soft Extremity: Normal Inspection, Non Tender, No Calf Tenderness, No Pedal Edema Neurologic/Psychiatric: Alert, Oriented x3, Normal Mood/Affect Skin: Normal Color, Warm/Dry, Other (Decubitus ulcer dressed. There is necrotic tissue inside of the wound. There is an area of erythem around this would that seems to have expanded a bit. No granulation tissue noted in wound. ) Results Lab Laboratory Tests 11/27/21 12:05: Glucometer 246H 11/27/21 15:30: Vancomycin Level Trough 16.0 11/27/21 17:08: Glucometer 150H 11/27/21 21:13: Glucometer 193H 11/27/21 23:30: Glucometer 117H 11/28/21 04:30: Glucometer 134H 11/28/21 05:10: White Blood Count 10.3, Red Blood Count 2.81L, Hemoglobin 8.4L, Hematocrit 25L, Mean Corpuscular Volume 89, Mean Corpuscular Hemoglobin 30, Mean Corpuscular Hemoglobin Concent 34, Red Cell Distribution Width 13.3, Platelet Count 258, Mean Platelet Volume 9.8, Sodium Level 137, Potassium Level 3.5L, Chloride Level 108H, Carbon Dioxide Level 20L, Anion Gap 9, Blood Urea Nitrogen 20H, Creatinine 1.09, Estimat Glomerular Filtration Rate 51, BUN/Creatinine Ratio 18, Glucose Level 139H, Calcium Level 8.7 Microbiology 11/25/21 Blood Culture - Preliminary, Resulted Staphylococcus epidermidis Susceptibility To Follow See Comments Assessment/Plan Assessment/Plan Assessment/Plan Bilateral pneumonia, Stage IV decubitus ulcer with possible Osteomyelitis Hypoglycemia. Continuing to apply santyl and dressings, Wound looks a bit worse today, increase in redness, necrotic tissue. Will keep evaluating wound and will take to OR for debridement if necessary, but seems more likely today. Continue on abx for both her suspected osteomyelitits and bilateral PNA. Her hypoglycemia is resolved at 139 this morning. She is on insulin. She was still oriented x3 this morning. She is in a lot of pain with her low back, she is receiving oxycodone. She states she has not had any nausea with meals like she did yesterday, is on zofran. Patient could benefit from mo due to continual wetting and moisture around ulcer. Clinical Quality Measures Smoking Cessation Counseling: Counseling-Symptomatic: 3-10 Minutes WALLACE AYON DO 11/28/21 1513: Subjective Time Seen by a Provider: 14:22 Subjective/Events-last exam Pt seen and examined, no changes and still complaining of back pain. When I saw her she had already had mo catheter placed. Review of Systems General: No Chills; Fatigue, Malaise Pulmonary: No Dyspnea, No Cough Cardiovascular: No: Chest Pain, Palpitations Gastrointestinal: No: Nausea, Vomiting, Abdominal Pain Musculoskeletal: back pain (Lumbar) Objective Exam General Appearance: Anxious, Chronically ill, Mild Distress HEENT: Pharynx Normal (moist), Other (Mucus membranes a little dry) Respiratory: Lungs Clear, Normal Breath Sounds, No Accessory Muscle Use, No Respiratory Distress Cardiovascular: Regular Rate, Rhythm, No Murmur Gastrointestinal: non tender, soft, no organomegaly Extremity: Non Tender, No Calf Tenderness Skin: Other (Decubitus ulcer dressed. There is necrotic tissue inside of the wound. There is an area of erythem around this would that seems to have expanded a bit. No granulation tissue noted in wound. ) Assessment/Plan Assessment/Plan Assessment/Plan Bilateral pneumonia, Stage IV decubitus ulcer with possible Osteomyelitis Hypoglycemia. Continuing to apply santyl and dressings, Wound looks a bit worse today, increase in redness, necrotic tissue. Will keep evaluating wound and will take to OR for debridement if necessary, but seemingly more likely. Continue on abx for both her suspected osteomyelitits and bilateral PNA. Her hypoglycemia is resolved at 139 this morning. She is on insulin. She was still oriented x3 this morning. She is in a lot of pain with her low back, she is receiving oxycodone. She states she has not had any nausea with meals like she did yesterday, is on zofran. Mo placed to stop moisture around ulcer. Supervisory-Addendum Brief Verification & Attestation Participated in pt care: history, MDM, physical Personally performed: exam, history, MDM, supervision of care Care discussed with: Medical Student Procedures: n/a Verification and Attestation of Medical Student E/M Service A medical student performed and documented this service. I then reviewed and verified all information documented by the medical student and made modifications to such information, when appropriate. I personally performed a physical exam, medical decision making and then discussed any differences between the notes and made revisions as necessary to create one note. Wallace Ayon , 11/28/21 , 15:13 [facility] [employer] STUDENT Nov 28, 2021 08:18 WALLACE AYON DO Nov 28, 2021 15:13
[2021-11-28] MEDS: lisINopril 20 MG (PRINIVIL) TABLET PO SCH (09:34)
[2021-11-28] MEDS: NS IV 1000 ML 1,000 ML IV SCH ×2 (09:34→22:01)
[2021-11-28] MEDS: GABAPENTIN 400 MG (NEURONTIN) CAP PO SCH ×2 (09:35→22:02)
[2021-11-28] MEDS: SENNA W/DOCUSATE (SENOKOT S) TABLET PO SCH (09:35)
[2021-11-28] MEDS: COLLAGENASE 30 GM (SANTYL) TUBE TP SCH ×2 (09:37→22:02)
[2021-11-28] MEDS ORDERED: ALPRAZolam 1 MG (XANAX) TAB PO ONE (10:50)
[2021-11-28] MEDS ORDERED: GADOTERATE 0.5 MMOL/ML (CLARISCAN) 15 ML VIAL IV ONE (12:00)
--- NOTE | 2021-11-28 13:32 | Diagnostic Imaging Report ---
PROCEDURE: MRI lumbar spine with and without contrast. TECHNIQUE: Multiplanar, multisequence MRI of the lumbar spine was performed with and without contrast. INDICATION: Low back pain. Decubitus ulcer. COMPARISON: 10/13/2021. FINDINGS: Chronic compression fracture is again seen involving the inferior endplate of L2 with increase in cystic component extending into the central portion of the vertebral body at L2. There is surrounding faint enhancement. No acute fractures identified in the lumbar spine. Posterior fusion changes are again seen from L3 to S1 with bipedicle screws. The conus terminates at the L1 level. No masses are seen associated with the conus or nerve roots of the cauda equina. No epidural collections are identified. Multilevel degenerative changes are seen in the lumbar spine with disc bulges, facet hypertrophy, and buckling of the ligamentum flavum. Degenerative changes are again seen in the lumbar spine with disc bulges, facet hypertrophy, and buckling of the ligamentum flavum. There is stable isce-wo-isksbsfe spinal canal narrowing at the L1-L2 level and severe spinal canal stenosis at L2-L3. Severe bilateral foraminal stenosis is also present at the L2-L3 level. Paravertebral soft tissues are unremarkable. IMPRESSION: 1. Compression fractures again seen involving the inferior endplate of L2 with increase in a cystic component extending into the central portion of the L2 vertebral body. There is a small amount of enhancement in the inferior endplate of the L2 vertebral body favored to be reactive. No masslike enhancement is seen to suggest pathologic fracture. 2. No acute fracture is seen in the lumbar spine. 3. Stable degenerative changes in the lumbar spine greatest at L2-L3 with severe spinal canal and bilateral foraminal stenosis. Dictated by: Dictated on workstation # [id number]
--- NOTE | 2021-11-28 14:12 | Diagnostic Imaging Report ---
PROCEDURE: MRI pelvis with and without contrast. TECHNIQUE: Multiplanar, multisequence MRI of the pelvis was performed with and without contrast. INDICATION: Sacral wound. COMPARISON: CT pelvis of 11/25/2021. FINDINGS: There is a dermal wound at the apex of the gluteal cleft which has a sinus tract extending deep to the underlying coccygeal bodies. There are 2 fully formed coccygeal bodies and both of these have vague T2 hyperintense signal with subtle marrow replacement on T1-weighted imaging suggestive of early osteomyelitis. No osteomyelitis within the sacral segments. No features of intrapelvic abscess. Bateman catheter partially decompresses the urinary bladder. There are surgical changes in the lower lumbar spine that show no features of postoperative complication. No osteonecrosis of femoral heads. IMPRESSION: 1. Imaging features are suggestive of osteomyelitis involving both coccygeal segments. 2. No drainable abscess. Dictated by: Dictated on workstation # [id number]
--- NOTE | 2021-11-28 14:28 | Progress Note - Hospitalist ---
RENETTA BABB 11/28/21 1428: Subjective HPI/CC On Admission CC: Pneumonia HPI: History was difficultly to acquire due to patient's fatigue and foggy thin mihir. Patient had been suffering from congestion for past several months after her last hospitalization for pneumonia. She is unsure exactly when it started. Associated symptoms of cough. In regards to the wound on her back/coccyx, she is also unsure when it developed but it causes her significant discomfort. Denies any fevers or chills. Per chart review, patient was brought to ED via EMS from custodial due to hypoglycemia. She was given glucagon and her blood sugars normalized. Chest x-ray was remarkable for pneumonia and CT of pelvis was concerning for osteomyelitis at coccyx/sacrum junction. Started on IV antibiotics in the ED. Subjective/Events-last exam Itzel reports doing "not good" this morning. She is still in considerable back pain. Getting ready to go to MRI. Over last day, has had 2 episodes of urinary incontinence. When further questioned about this, it seemed she could not get out of bed due to pain. She had the urge to urinate before these episodes, but could not get to bathroom. Patient did feed herself breakfast. No other complaints aside from back pain. Review of Systems General: Other (In pain) HEENT: No Head Aches Pulmonary: No Cough Cardiovascular: No: Chest Pain Gastrointestinal: No: Nausea, Vomiting, Abdominal Pain, Diarrhea, Constipation Genitourinary: Incontinence Musculoskeletal: back pain, leg pain Psych: sad affect Objective Exam Vital Signs Vital Signs Date Time Temp Pulse Resp B/P (MAP) Pulse Ox O2 Delivery O2 Flow Rate FiO2 11/28/21 13:00 58 11/28/21 12:00 36.3 18 103/57 (72) 90 Room Air 11/27/21 20:52 21 11/26/21 09:00 2.00 Capillary Refill : Less Than 3 Seconds General Appearance: Mild Distress Respiratory: Lungs Clear, Normal Breath Sounds, No Accessory Muscle Use, No Respiratory Distress Cardiovascular: Regular Rate, Rhythm, No Edema, Normal Peripheral Pulses Gastrointestinal: Normal Bowel Sounds, Non Tender, Soft; No Distended Extremity: Non Tender, No Calf Tenderness, No Pedal Edema Neurologic/Psychiatric: Alert, Depressed Affect Results/Procedures Lab Laboratory Tests 11/28/21 05:10 Patient resulted labs reviewed. Imaging: Reviewed Imaging Report Radiology MRI lumbar spine w/ and w/o contrast: L2 chronic compression fracture at inferi or endplate. Mild enhancement at L2. No acute fractures. Chronic degenerative changes. Spinal and foraminal stenosis. MRI pelvis w/ and w/o contrast: Evidence of osteomyelitis of both coccygeal segments. No osteomyelitis of sacrum. Meds Vancomycin Cefepime Lisinopril Metoprolol Succinate Amlodipine Atorvastatin Gabapentin Oxycodone Ropinirole Pantoprazole Sucralfate Promethazine Divalproex Ondansetron Albuterol/Ipratropium Aspart insulin Polyethylene glycol Senna Docusate Enoxaparin Collagenase Assessment/Plan Assessment and Plan Assess & Plan/Chief Complaint Sacral/coccygeal decubitus ulcer with underlying osteomyelitis * CT scan of pelvis with evidence of possible osteomyelitis at coccyx/sacral junction of left side of midline * General surgery following * MRI of pelvis and spine performed on 11/28. Evidence of chronic compression fracture and mild contrast enhancement at L2. * Blood cultures positive for staph epidermidis > Per general surgery, continuing enzymatic debridement. If unsuccessful may take to OR. Awaiting wound culture results. Will transition to narrow-spectrum antibiotics. Pneumonia * Bilateral pneumonia incidentally discovered on CXR. * Breathing comfortably on room air > Covered by cefepime and vancomycin for ulcer Anemia of chronic disease * hgb 8.4 this morning after > Monitor with daily CBC. If Hgb drops below 7, will give blood transfusion. Hypertension * High BPs ranging from 160-185/71-82 overnight > Started on lisinopril, metoprolol succinate, and amlodipine. IDDM > Insulin aspart with meals if indicated. Monitor BG qAM and with meals. GERD > [facility] protonix and carafate Seizure disorder > [facility] depakote Nausea, vomiting > [facility] promethazine, ondansetron HLD > [facility] atorvastatin Restless leg syndrome > [facility] ropinirole Chronic pain > [facility] gabapentin oxycodone COPD * 1 PPD smoking history > PRN duoneb Bowel prophylaxis, constipation > polyethylene glycol, docusate, sennokot DVT prophylaxis > lovenox Time spent with patient (mins): 10 Clinical Quality Measures Smoking Cessation Counseling: Counseling-Symptomatic: 3-10 Minutes ALENA LI MD 11/28/21 4472: Subjective HPI/CC On Admission Time Seen by Provider: 10:45 Supervisory-Addendum Brief Verification & Attestation Participated in pt care: history, MDM, physical Personally performed: exam, history, MDM Care discussed with: Medical Student Procedures: n/a Verification and Attestation of Medical Student E/M Service I reviewed and verified all information documented by the medical student and made modifications to such information, when appropriate. I personally performed the physical exam and medical decision making. Alena Li, Nov 28, 2021,18:52 RENETTA BABB Nov 28, 2021 14:28 ALENA LI MD Nov 28, 2021 18:52
[2021-11-28] MEDS: ENOXAPARIN 40 MG/0.4 ML (LOVENOX) SYR SQ SCH (15:19)
[2021-11-28] MEDS: VANCOMYCIN 750 MG/NS 250 ML IVPB IV SCH ×2 (16:32)
[2021-11-28] MEDS: rOPINIRole 0.25 MG (REQUIP) TAB PO SCH (18:15)
[2021-11-29 04:18] VITALS: BP 166/76
[2021-11-29] MEDS: polyethylene glycoL POWDER 17 GM (MIRALAX) PACK PO SCH ×2 (05:32→17:30)
[2021-11-29] MEDS: NS IV 1000 ML 1,000 ML IV SCH ×3 (05:32→18:34)
[2021-11-29] MEDS: CEFEPIME 1,000 MG/NS 50 ML IVPB IV SCH ×6 (06:42→21:04)
[2021-11-29] MEDS: SUCRALFATE 1 GM (CARAFATE) TAB PO SCH ×4 (06:42→20:49)
[2021-11-29] MEDS: PANTOPRAZOLE 40 MG (PROTONIX) TAB PO SCH ×2 (06:42→14:33)
[2021-11-29] MEDS: DIVALPROX SPRINKLE 125 MG (DEPAKOTE) CAP PO SCH ×2 (06:42→17:27)
[2021-11-29] MEDS: inSUlin ASPART (NovoLOG) 1 UNIT/0.01 ML (CHARGE PER UNIT) SC SCH ×4 (06:55→20:50)
[2021-11-29 07:35] VITALS: BP 168/76
[2021-11-29] MEDS: GABAPENTIN 400 MG (NEURONTIN) CAP PO SCH ×2 (08:22→20:49)
[2021-11-29] MEDS: amLODIPine 10 MG (NORVASC) TAB PO SCH (08:22)
[2021-11-29] MEDS: COLLAGENASE 30 GM (SANTYL) TUBE TP SCH ×2 (08:29→20:55)
[2021-11-29] MEDS: SENNA W/DOCUSATE (SENOKOT S) TABLET PO SCH (08:29)
[2021-11-29 08:34] LABS: BASOPHILS # (AUTO) 0.1 10^3/uL (0.0-0.1); BASOPHILS % (AUTO) 1 % (0-10); EOSINOPHILS # (AUTO) 0.6 10^3/uL (0.0-0.3); EOSINOPHILS % (AUTO) 6 % (0-10); HEMATOCRIT 26 % (35-52); HEMOGLOBIN 8.4 g/dL (11.5-16.0); LYMPHOCYTES # (AUTO) 1.7 10^3/uL (1.0-4.0); LYMPHOCYTES % (AUTO) 19 % (12-44); MEAN CORPUSCULAR HEMOGLOBIN 30 pg (25-34); MEAN CORPUSCULAR HGB CONC 33 g/dL (32-36); MEAN CORPUSCULAR VOLUME 91 fL (80-99); MEAN PLATELET VOLUME 9.5 fL (9.0-12.2); MONOCYTES # (AUTO) 0.6 10^3/uL (0.0-1.0); MONOCYTES % (AUTO) 7 % (0-12); NEUTROPHILS % (AUTO) 67 % (42-75); PLATELET COUNT 239 10^3/uL (130-400)
--- NOTE | 2021-11-29 08:55 | Progress Note ---
Subjective Date Seen by a Provider: Nov 29, 2021 Time Seen by a Provider: 08:00 Subjective/Events-last exam doing ok. no fever/chills. sacral decubitus with intact skin however ischemic. no redness/erythema Objective Exam Vital Signs Date Time Temp Pulse Resp B/P (MAP) Pulse Ox O2 Delivery O2 Flow Rate FiO2 11/29/21 07:35 36.3 65 18 168/76 (106) 94 Room Air 11/29/21 04:18 36.8 63 18 166/76 (106) 94 Room Air 11/29/21 01:00 60 11/28/21 23:50 36.8 61 18 164/73 (103) 94 Room Air 11/28/21 20:44 Room Air 11/28/21 19:29 36.8 64 18 150/70 (96) 98 Room Air 11/28/21 19:00 70 11/28/21 16:47 36.1 59 18 151/75 (100) 95 Room Air 11/28/21 13:00 58 11/28/21 12:00 36.3 61 18 103/57 (72) 90 Room Air I & O 11/29/21 07:00 Intake Total 1187 ml Output Total 3050 ml Balance -1863 ml Capillary Refill : Less Than 3 Seconds General Appearance: No Apparent Distress HEENT: PERRL/EOMI Neck: Full Range of Motion Respiratory: Chest Non Tender, Decreased Breath Sounds, Rhonci Cardiovascular: Regular Rate, Rhythm Gastrointestinal: normal bowel sounds, non tender, soft Extremity: Normal Capillary Refill Neurologic/Psychiatric: Alert, Oriented x3 Skin: Other (sacral decub with intact skin however ischemic, no signs active infection) Lymphatic: No Adenopathy Results Lab Laboratory Tests 11/28/21 13:23: Glucometer 260H 11/28/21 16:02: Glucometer 203H 11/28/21 18:11: Glucometer 225H 11/28/21 23:48: Glucometer 168H 11/29/21 06:51: Glucometer 201H 11/29/21 08:27: White Blood Count 9.0, Red Blood Count 2.83L, Hemoglobin 8.4L, Hematocrit 26L, Mean Corpuscular Volume 91, Mean Corpuscular Hemoglobin 30, Mean Corpuscular Hemoglobin Concent 33, Red Cell Distribution Width 13.4, Platelet Count 239, Mean Platelet Volume 9.5, Immature Granulocyte % (Auto) 1, Neutrophils (%) (Auto) 67, Lymphocytes (%) (Auto) 19, Monocytes (%) (Auto) 7, Eosinophils (%) (Auto) 6, Basophils (%) (Auto) 1, Neutrophils # (Auto) 6.0, Lymphocytes # (Auto) 1.7, Monocytes # (Auto) 0.6, Eosinophils # (Auto) 0.6H, Basophils # (Auto) 0.1, Immature Granulocyte # (Auto) 0.1 Microbiology 11/27/21 Gram Stain - Final, Resulted 11/27/21 Wound Culture - Preliminary, Resulted Mixed Bacterial Eileen 11/25/21 Blood Culture - Final, Complete Staphylococcus epidermidis See Comments Assessment/Plan Assessment/Plan Assess & Plan/Chief Complaint sacral decubitus ulcer/ischemia. off load pressure. will likely need debridement at some point. no active infxn at this time. Clinical Quality Measures Smoking Cessation Counseling: Counseling-Symptomatic: 3-10 Minutes MCKENZIE CHAVEZ MD Nov 29, 2021 08:55
[2021-11-29 09:00] LABS: ALBUMIN 2.2 GM/DL (3.2-4.5); BILIRUBIN,TOTAL 0.2 MG/DL (0.1-1.0); CALCIUM 8.7 MG/DL (8.5-10.1); CREATININE SERUM 1.22 MG/DL (0.60-1.30); POTASSIUM 3.5 MMOL/L (3.6-5.0); TOTAL PROTEIN 5.7 GM/DL (6.4-8.2)
--- NOTE | 2021-11-29 09:36 | Progress Note - Hospitalist ---
Subjective HPI/CC On Admission Date Seen by Provider: Nov 29, 2021 Time Seen by Provider: 12:30 CC: Pneumonia HPI: History was difficultly to acquire due to patient's fatigue and foggy thinking. Patient had been suffering from congestion for past several months after her last hospitalization for pneumonia. She is unsure exactly when it started. Associated symptoms of cough. In regards to the wound on her back/coccyx, she is also unsure when it developed but it causes her significant discomfort. Denies any fevers or chills. Per chart review, [facility]. She was given glucagon and her blood sugars normalized. Chest x- ray was remarkable for pneumonia and CT of pelvis was concerning for osteomyelitis at coccyx/sacrum junction. Started on IV antibiotics in the ED. Subjective/Events-last exam Patient having a lot of pain Noncompliant with offloading pressure ulcer Patient appears to be declined since last seen IV antibiotics maintained Port maintained Insulin managing Add fentanyl patch Review of Systems General: Fatigue, Malaise Neurological: Confusion Objective Exam Vital Signs Vital Signs Date Time Temp Pulse Resp B/P (MAP) Pulse Ox O2 Delivery O2 Flow Rate FiO2 11/29/21 15:17 36.4 64 18 131/65 (87) 93 Room Air 11/27/21 20:52 21 11/26/21 09:00 2.00 Capillary Refill : Less Than 3 Seconds General Appearance: WD/WN, Anxious, Chronically ill, Moderate Distress Respiratory: Lungs Clear, Normal Breath Sounds Cardiovascular: Regular Rate, Rhythm Neurologic/Psychiatric: Alert, Disoriented Results/Procedures Lab Laboratory Tests 11/29/21 08:27 Patient resulted labs reviewed. Imaging: Reviewed Imaging Report Assessment/Plan Assessment and Plan Assess & Plan/Chief Complaint Assessment: Compression fractures Neoplastic appearance of vertebral column in need of biopsy during kyphoplasty Decubitus ulcer sacrum Diabetes labile and brittle Chronic kidney disease Hypertension Depression Anemia requiring transfusions in the past Plan: Add fentanyl patch IV antibiotics Decubitus ulcer management Clinical Quality Measures Smoking Cessation Counseling: Counseling-Symptomatic: 3-10 Minutes AZEEM MELVIN DO Nov 29, 2021 09:36
[2021-11-29 11:22] VITALS: BP 179/80
[2021-11-29] MEDS: lisINopril 20 MG (PRINIVIL) TABLET PO SCH (11:32)
[2021-11-29] MEDS: ENOXAPARIN 40 MG/0.4 ML (LOVENOX) SYR SQ SCH (14:33)
[2021-11-29] MEDS: fentaNYL PATCH 25 MCG (DURAGESIC) TD SCH (14:34)
[2021-11-29 15:17] VITALS: BP 131/65
[2021-11-29] MEDS: VANCOMYCIN 750 MG/NS 250 ML IVPB IV SCH ×2 (16:15)
[2021-11-29] MEDS: meTOprolol SUCCINATE 100 MG (TOPROL XL) TAB PO SCH (17:27)
[2021-11-29] MEDS: rOPINIRole 0.25 MG (REQUIP) TAB PO SCH (17:27)
[2021-11-29 19:24] VITALS: BP 165/78
[2021-11-30 00:40] VITALS: BP 170/75
[2021-11-30 04:10] VITALS: BP 171/77
[2021-11-30] MEDS: NS IV 1000 ML 1,000 ML IV SCH ×2 (05:30→22:59)
[2021-11-30] MEDS: CEFEPIME 1,000 MG/NS 50 ML IVPB IV SCH ×4 (05:30→15:17)
[2021-11-30] MEDS: SUCRALFATE 1 GM (CARAFATE) TAB PO SCH ×4 (05:44→22:59)
[2021-11-30] MEDS: DIVALPROX SPRINKLE 125 MG (DEPAKOTE) CAP PO SCH ×2 (05:44→18:09)
[2021-11-30] MEDS: PANTOPRAZOLE 40 MG (PROTONIX) TAB PO SCH ×2 (05:44→15:17)
[2021-11-30] MEDS: polyethylene glycoL POWDER 17 GM (MIRALAX) PACK PO SCH ×2 (05:44→18:09)
[2021-11-30] MEDS: inSUlin ASPART (NovoLOG) 1 UNIT/0.01 ML (CHARGE PER UNIT) SC SCH ×4 (05:44→23:06)
[2021-11-30 06:50] LABS: BASOPHILS # (AUTO) 0.1 10^3/uL (0.0-0.1); BASOPHILS % (AUTO) 1 % (0-10); EOSINOPHILS # (AUTO) 0.4 10^3/uL (0.0-0.3); EOSINOPHILS % (AUTO) 5 % (0-10); HEMATOCRIT 24 % (35-52); HEMOGLOBIN 7.8 g/dL (11.5-16.0); LYMPHOCYTES # (AUTO) 2.1 10^3/uL (1.0-4.0); LYMPHOCYTES % (AUTO) 27 % (12-44); MEAN CORPUSCULAR HEMOGLOBIN 30 pg (25-34); MEAN CORPUSCULAR HGB CONC 33 g/dL (32-36); MEAN CORPUSCULAR VOLUME 91 fL (80-99); MEAN PLATELET VOLUME 9.3 fL (9.0-12.2); MONOCYTES # (AUTO) 0.6 10^3/uL (0.0-1.0); MONOCYTES % (AUTO) 8 % (0-12); NEUTROPHILS # (AUTO) 4.6 10^3/uL (1.8-7.8); NEUTROPHILS % (AUTO) 58 % (42-75); PLATELET COUNT 215 10^3/uL (130-400); WHITE BLOOD COUNT 7.8 10^3/uL (4.3-11.0)
[2021-11-30 06:58] LABS: ALBUMIN 2.1 GM/DL (3.2-4.5)
[2021-11-30 06:59] LABS: CHLORIDE 111 MMOL/L (98-107); POTASSIUM 2.9 MMOL/L (3.6-5.0); SODIUM 140 MMOL/L (135-145)
[2021-11-30 07:00] LABS: CALCIUM 8.3 MG/DL (8.5-10.1)
[2021-11-30 07:01] LABS: GLUCOSE 174 MG/DL (70-105); TOTAL PROTEIN 5.3 GM/DL (6.4-8.2)
[2021-11-30 07:02] LABS: CARBON DIOXIDE 21 MMOL/L (21-32)
[2021-11-30 07:03] LABS: BILIRUBIN,TOTAL 0.2 MG/DL (0.1-1.0)
[2021-11-30 07:04] LABS: ALKALINE PHOSPHATASE 48 U/L (40-136)
[2021-11-30 07:05] LABS: CREATININE SERUM 1.08 MG/DL (0.60-1.30); GFR ESTIMATED 51
[2021-11-30 07:06] LABS: BUN/CREATININE RATIO 15
[2021-11-30 07:07] LABS: ALANINE AMINOTRANSFERASE < 6 U/L (0-55)
[2021-11-30 08:17] VITALS: BP 180/86
--- NOTE | 2021-11-30 08:18 | Progress Note - Hospitalist ---
Subjective HPI/CC On Admission Date Seen by Provider: Nov 30, 2021 Time Seen by Provider: 12:30 CC: Pneumonia HPI: History was difficultly to acquire due to patient's fatigue and foggy thinking. Patient had been suffering from congestion for past several months after her last hospitalization for pneumonia. She is unsure exactly when it started. Associated symptoms of cough. In regards to the wound on her back/coccyx, she is also unsure when it developed but it causes her significant discomfort. Denies any fevers or chills. Per chart review, patient was brought to ED via EMS from shelter due to hypoglycemia. She was given glucagon and her blood sugars normalized. Chest x- ray was remarkable for pneumonia and CT of pelvis was concerning for osteomyelitis at coccyx/sacrum junction. Started on IV antibiotics in the ED. Subjective/Events-last exam Patient doing about the same Fentanyl patch seems to be working She states is not working She was in no distress when I went in but after we talked about her pain she started telling me she was having a lot of pain Checked meds and labs Review of Systems General: Fatigue, Malaise Musculoskeletal: back pain Objective Exam Vital Signs Vital Signs Date Time Temp Pulse Resp B/P (MAP) Pulse Ox O2 Delivery O2 Flow Rate FiO2 11/30/21 16:00 36.8 65 20 155/70 (98) 96 Room Air 11/27/21 20:52 21 11/26/21 09:00 2.00 Capillary Refill : Less Than 3 Seconds General Appearance: No Apparent Distress, WD/WN, Chronically ill Respiratory: Lungs Clear, Normal Breath Sounds Cardiovascular: Regular Rate, Rhythm Neurologic/Psychiatric: Alert, Oriented x3, Disoriented Results/Procedures Lab Laboratory Tests 11/30/21 06:40 Patient resulted labs reviewed. Imaging: Reviewed Imaging Report Assessment/Plan Assessment and Plan Assess & Plan/Chief Complaint Assessment: Compression fractures Neoplastic appearance of vertebral column in need of biopsy during kyphoplasty Decubitus ulcer sacrum Diabetes labile and brittle Chronic kidney disease Hypertension Depression Anemia requiring transfusions in the past Plan: Add fentanyl patch IV antibiotics Decubitus ulcer management 11/30/2021: IV antibiotics Insulin Pain meds Clinical Quality Measures Smoking Cessation Counseling: Counseling-Symptomatic: 3-10 Minutes AZEEM MELVIN DO Nov 30, 2021 08:18
[2021-11-30] MEDS: GABAPENTIN 400 MG (NEURONTIN) CAP PO SCH ×2 (09:05→22:58)
[2021-11-30] MEDS: amLODIPine 10 MG (NORVASC) TAB PO SCH (09:05)
[2021-11-30] MEDS: SENNA W/DOCUSATE (SENOKOT S) TABLET PO SCH (09:05)
[2021-11-30] MEDS: lisINopril 20 MG (PRINIVIL) TABLET PO SCH (09:05)
[2021-11-30] MEDS: POTASSIUM CL 10MEQ/50ML IVPB 50 ML IV SCH ×4 (09:05→13:37)
[2021-11-30] MEDS: COLLAGENASE 30 GM (SANTYL) TUBE TP SCH ×2 (09:05→23:00)
--- NOTE | 2021-11-30 10:09 | Progress Note ---
Subjective Date Seen by a Provider: Nov 30, 2021 Time Seen by a Provider: 09:30 Subjective/Events-last exam Patient seen with Dr. Rubin. Patient reports sacral pain from dressing change. Tolerating diet. Objective Exam Vital Signs Date Time Temp Pulse Resp B/P (MAP) Pulse Ox O2 Delivery O2 Flow Rate FiO2 11/30/21 08:17 37.0 62 12 180/86 (117) 96 Room Air 11/30/21 04:10 37.5 60 16 171/77 (108) 97 Room Air 11/30/21 00:40 36.8 62 18 170/75 (106) 96 Room Air 11/29/21 20:50 Room Air 11/29/21 20:46 94 Room Air 11/29/21 19:24 36.3 78 18 165/78 (107) 94 Room Air 11/29/21 15:17 36.4 64 18 131/65 (87) 93 Room Air 11/29/21 14:53 Room Air 11/29/21 11:22 36.5 71 18 179/80 (113) 94 Room Air I & O 11/30/21 07:00 Intake Total 1170 ml Output Total 2450 ml Balance -1280 ml Capillary Refill : Less Than 3 Seconds General Appearance: No Apparent Distress, WD/WN Neck: Normal Inspection, Supple Respiratory: No Accessory Muscle Use, No Respiratory Distress Cardiovascular: Regular Rate, Rhythm, No Edema Gastrointestinal: non tender, soft Extremity: Normal Inspection, Normal Range of Motion Neurologic/Psychiatric: Alert, Oriented x3 Skin: Other (Stage IV sacral decub ulcer with ischemia, intact skin) Results Lab Laboratory Tests 11/29/21 11:27: Glucometer 241H 11/29/21 15:21: Glucometer 221H 11/29/21 20:07: Glucometer 205H 11/30/21 00:26: Glucometer 139H 11/30/21 05:32: Glucometer 158H 11/30/21 06:40: White Blood Count 7.8, Red Blood Count 2.62L, Hemoglobin 7.8L, Hematocrit 24L, Mean Corpuscular Volume 91, Mean Corpuscular Hemoglobin 30, Mean Corpuscular Hemoglobin Concent 33, Red Cell Distribution Width 13.5, Platelet Count 215, Mean Platelet Volume 9.3, Immature Granulocyte % (Auto) 1, Neutrophils (%) (Auto) 58, Lymphocytes (%) (Auto) 27, Monocytes (%) (Auto) 8, Eosinophils (%) (Auto) 5, Basophils (%) (Auto) 1, Neutrophils # (Auto) 4.6, Lymphocytes # (Auto) 2.1, Monocytes # (Auto) 0.6, Eosinophils # (Auto) 0.4H, Basophils # (Auto) 0.1, Immature Granulocyte # (Auto) 0.1, Sodium Level 140, Potassium Level 2.9L, C hloride Level 111H, Carbon Dioxide Level 21, Anion Gap , Blood Urea Nitrogen 16, Creatinine 1.08, Estimat Glomerular Filtration Rate 51, BUN/Creatinine Ratio 15, Glucose Level 174H, Calcium Level 8.3L, Corrected Calcium 9.8, Total Bilirubin 0.2, Aspartate Amino Transf (AST/SGOT) 8, Alanine Aminotransferase (ALT/SGPT) < 6, Alkaline Phosphatase 48, Total Protein 5.3L, Albumin 2.1L Microbiology 11/27/21 Gram Stain - Final, Resulted 11/27/21 Wound Culture - Preliminary, Resulted Mixed Bacterial Eileen 11/25/21 Blood Culture - Final, Complete Staphylococcus epidermidis See Comments Assessment/Plan Assessment/Plan Assess & Plan/Chief Complaint sacral decubitus ulcer/ischemia. off load pressure. will likely need debridement at some point. no active infxn at this time. Clinical Quality Measures Smoking Cessation Counseling: Counseling-Symptomatic: 3-10 Minutes TYRA MACEDO KITCHEN ASSISTANT Nov 30, 2021 10:09
[2021-11-30 11:31] VITALS: BP 161/70
[2021-11-30] MEDS: ENOXAPARIN 40 MG/0.4 ML (LOVENOX) SYR SQ SCH (15:17)
[2021-11-30 16:00] VITALS: BP 155/70
[2021-11-30] MEDS: VANCOMYCIN 750 MG/NS 250 ML IVPB IV SCH ×2 (16:25)
[2021-11-30] MEDS: rOPINIRole 0.25 MG (REQUIP) TAB PO SCH (18:09)
[2021-11-30] MEDS: meTOprolol SUCCINATE 100 MG (TOPROL XL) TAB PO SCH (18:09)
[2021-11-30 20:00] VITALS: BP 168/77
[2021-12-01] VITALS (7 sets, daily range): BP systolic 130–181; BP diastolic 61–88
[2021-12-01] MEDS: inSUlin ASPART (NovoLOG) 1 UNIT/0.01 ML (CHARGE PER UNIT) SC SCH ×4 (06:34→21:49)
[2021-12-01 06:56] LABS: BASOPHILS # (AUTO) 0.1 10^3/uL (0.0-0.1); BASOPHILS % (AUTO) 1 % (0-10); EOSINOPHILS # (AUTO) 0.6 10^3/uL (0.0-0.3); EOSINOPHILS % (AUTO) 6 % (0-10); HEMATOCRIT 24 % (35-52); LYMPHOCYTES # (AUTO) 2.5 10^3/uL (1.0-4.0); LYMPHOCYTES % (AUTO) 27 % (12-44); MEAN CORPUSCULAR HEMOGLOBIN 30 pg (25-34); MEAN CORPUSCULAR HGB CONC 33 g/dL (32-36); MEAN CORPUSCULAR VOLUME 90 fL (80-99); MEAN PLATELET VOLUME 9.3 fL (9.0-12.2); MONOCYTES # (AUTO) 0.7 10^3/uL (0.0-1.0); MONOCYTES % (AUTO) 8 % (0-12); NEUTROPHILS # (AUTO) 5.2 10^3/uL (1.8-7.8); NEUTROPHILS % (AUTO) 56 % (42-75); PLATELET COUNT 229 10^3/uL (130-400); WHITE BLOOD COUNT 9.3 10^3/uL (4.3-11.0)
[2021-12-01] MEDS: polyethylene glycoL POWDER 17 GM (MIRALAX) PACK PO SCH ×2 (07:07→17:49)
[2021-12-01] MEDS: PANTOPRAZOLE 40 MG (PROTONIX) TAB PO SCH ×2 (07:07→14:23)
[2021-12-01] MEDS: DIVALPROX SPRINKLE 125 MG (DEPAKOTE) CAP PO SCH ×2 (07:07→17:48)
[2021-12-01] MEDS: SUCRALFATE 1 GM (CARAFATE) TAB PO SCH ×4 (07:07→21:49)
--- NOTE | 2021-12-01 07:13 | Progress Note - Surgery ---
CR[facility] [employer] STUDENT 12/01/21 0713: Subjective Date Seen by a Provider: Dec 01, 2021 Time Seen by a Provider: 07:00 Subjective/Events-last exam Mrs. Urbano is laying in bed this morning. She does not appear to be in any pain. Night nurse states they have been applying santyl and doing dressings but it starting to get worse. It will need debridement. She is still eating and drinking without nausea or vomiting. LBM this morning. She does have a catheter in. She is not doing PT. Review of Systems General: No Chills HEENT: No Head Aches, No Visual Changes Pulmonary: No Dyspnea, No Cough Cardiovascular: No: Chest Pain, Palpitations, Edema Gastrointestinal: No: Nausea, Vomiting, Abdominal Pain, Diarrhea, Constipation, Melena Genitourinary: No Dysuria, No Incontinence Musculoskeletal: back pain (lumbar); No: leg pain, foot pain Objective Exam Vital Signs Date Time Temp Pulse Resp B/P (MAP) Pulse Ox O2 Delivery O2 Flow Rate FiO2 12/01/21 04:00 36.4 62 13 130/61 (84) 97 Room Air 12/01/21 00:00 35.7 59 17 158/74 (102) 97 Room Air 11/30/21 20:50 95 Room Air 11/30/21 20:00 37.1 64 20 168/77 (107) Room Air 11/30/21 16:00 36.8 65 20 155/70 (98) 96 Room Air 11/30/21 11:31 36.7 68 20 161/70 (100) 96 Room Air 11/30/21 08:17 37.0 62 12 180/86 (117) 96 Room Air 11/30/21 08:00 Room Air I & O 12/01/21 07:00 Intake Total 1265 ml Output Total 2750 ml Balance -1485 ml Capillary Refill : Less Than 3 Seconds General Appearance: No Apparent Distress, Chronically ill HEENT: Pharynx Normal, Moist Mucous Membranes Neck: Non Tender, Supple Respiratory: Chest Non Tender, Lungs Clear, Normal Breath Sounds, No Accessory Muscle Use, No Respiratory Distress Cardiovascular: Regular Rate, Rhythm, No Edema, No Murmur, Normal Peripheral Pulses Peripheral Pulses: 2+ Dorsalis Pedis (R), 2+ Left Dors-Pedis (L), 2+ Radial Pulses (R), 2+ Radial Pulses (L) Gastrointestinal: normal bowel sounds, non tender, soft Extremity: Normal Inspection, Non Tender, No Calf Tenderness, No Pedal Edema Neurologic/Psychiatric: Alert, Oriented x3 Skin: Normal Color, Warm/Dry, Other (Stage IV sacral decub ulcer, increasing area of necrosis, margins increasing, molting of immediate surrounding skin.) Lymphatic: No Adenopathy Results Lab Laboratory Tests 11/30/21 11:15: Glucometer 175H 11/30/21 16:28: Glucometer 227H 11/30/21 20:15: Glucometer 207H 12/01/21 06:10: Glucometer 121H 12/01/21 06:30: White Blood Count 9.3, Red Blood Count 2.68L, Hemoglobin 8.0L, Hematocrit 24L, Mean Corpuscular Volume 90, Mean Corpuscular Hemoglobin 30, Mean Corpuscular Hemoglobin Concent 33, Red Cell Distribution Width 13.4, Platelet Count 229, Mean Platelet Volume 9.3, Immature Granulocyte % (Auto) 2, Neutrophils (%) (Auto) 56, Lymphocytes (%) (Auto) 27, Monocytes (%) (Auto) 8, Eosinophils (%) (Auto) 6, Basophils (%) (Auto) 1, Neutrophils # (Auto) 5.2, Lymphocytes # (Auto) 2.5, Monocytes # (Auto) 0.7, Eosinophils # (Auto) 0.6H, Basophils # (Auto) 0.1, Immature Granulocyte # (Auto) 0.1 Microbiology 11/27/21 Gram Stain - Final, Resulted 11/27/21 Wound Culture - Preliminary, Resulted Mixed Bacterial Eileen Staphylococcus aureus 11/25/21 Blood Culture - Final, Complete Staphylococcus epidermidis See Comments Assessment/Plan Assessment/Plan Assessment/Plan Bilateral pneumonia, Stage IV decubitus ulcer with possible Osteomyelitis Hypoglycemia HypoKalemia Anemia Nursing is continuing to apply santyl and dressings, her wound is nice and dry this morning with her catheter in. Nurse states that despite wound care wound is getting worse. When I look there is increased necrosis, beginning to spread to surrounding tissue. She will need surgical debridement. Will continue with santyl and dressing changes until she can be taken to OR. Nursing is keeping her positioned off of the wound as well as possible. She is oriented x3 this morning, glucose 121, she is on insulin. She did not complain of any pain this morning, but has pain meds. Her potassium is 2.9 this morning, she will need replacement. Anemia at 7.8 this morning, has been slowly decreasing during her admission, will watch with labs, along with K. Continue on vancomycin. Clinical Quality Measures Smoking Cessation Counseling: Counseling-Symptomatic: 3-10 Minutes WALLACE VILLEGAS DO 12/01/21 1546: Subjective Time Seen by a Provider: 13:51 Subjective/Events-last exam Pt seen and examined, no new complaints. She stated she is not moving much and not working with PT. Review of Systems General: No Chills Pulmonary: No Dyspnea, No Cough Cardiovascular: No: Chest Pain, Palpitations Gastrointestinal: No: Nausea, Vomiting, Abdominal Pain Musculoskeletal: back pain (lumbar) Objective Exam General Appearance: No Apparent Distress, Chronically ill Respiratory: Lungs Clear, Normal Breath Sounds, No Accessory Muscle Use, No Respiratory Distress Cardiovascular: Regular Rate, Rhythm, No Murmur Gastrointestinal: non tender, soft, no organomegaly Skin: Other (Stage IV sacral decub ulcer, increasing area of necrosis, margins increasing, molting of immediate surrounding skin.) Assessment/Plan Assessment/Plan Assessment/Plan Bilateral pneumonia Stage IV decubitus ulcer with possible Osteomyelitis Hypoglycemia HypoKalemia Anemia Nursing is continuing to apply santyl and dressings, her wound is nice and dry this morning with her catheter in. Nurse states that despite wound care wound is getting worse. When I look there is increased necrosis, beginning to spread to surrounding tissue. She will need surgical debridement. Will continue with santyl and dressing changes until she can be taken to OR. Nursing is keeping her positioned off of the wound as well as possible. She is oriented x3 this morn ing, glucose 121, she is on insulin. She did not complain of any pain this morning, but has pain meds. Her potassium is 2.9 this morning, she will need replacement. Anemia at 7.8 this morning, has been slowly decreasing during her admission, will watch with labs, along with K. Plan to make NPO after midnight, consent for Debridement of Necrotic Sacral Decubitus ulcer. I also spoke with pt regarding surgery; went over risks and complications not limited to pain, bleeding, infection, scar and need for further debridement. I stressed to pt that if she does not start working with PT and moving (at least side to side to get off sacrum) then debriding the wound won't help at all because she will continue to keep causing the damage. Supervisory-Addendum Brief Verification & Attestation Participated in pt care: history, MDM, physical Personally performed: exam, history, MDM, supervision of care Care discussed with: Medical Student Procedures: n/a Verification and Attestation of Medical Student E/M Service A medical student performed and documented this service. I then reviewed and verified all information documented by the medical student and made modifications to such information, when appropriate. I personally performed a physical exam, medical decision making and then discussed any differences between the notes and made revisions as necessary to create one note. Wallace Villegas , 12/01/21 , 15:46 [facility] [employer] STUDENT Dec 01, 2021 07:13 WALLACE VILLEGAS DO Dec 01, 2021 15:46
[2021-12-01 07:24] LABS: ALBUMIN 2.1 GM/DL (3.2-4.5); CHLORIDE 108 MMOL/L (98-107); POTASSIUM 3.6 MMOL/L (3.6-5.0); SODIUM 139 MMOL/L (135-145)
[2021-12-01 07:25] LABS: CALCIUM 8.3 MG/DL (8.5-10.1)
[2021-12-01 07:26] LABS: GLUCOSE 138 MG/DL (70-105); TOTAL PROTEIN 5.6 GM/DL (6.4-8.2)
[2021-12-01 07:27] LABS: CARBON DIOXIDE 22 MMOL/L (21-32)
[2021-12-01 07:28] LABS: BILIRUBIN,TOTAL 0.2 MG/DL (0.1-1.0)
[2021-12-01 07:29] LABS: ALKALINE PHOSPHATASE 49 U/L (40-136)
[2021-12-01 07:30] LABS: CREATININE SERUM 1.06 MG/DL (0.60-1.30); GFR ESTIMATED 53
[2021-12-01 07:31] LABS: BUN/CREATININE RATIO 15
[2021-12-01 07:33] LABS: ALANINE AMINOTRANSFERASE < 6 U/L (0-55)
[2021-12-01] MEDS: lisINopril 20 MG (PRINIVIL) TABLET PO SCH (09:21)
[2021-12-01] MEDS: amLODIPine 10 MG (NORVASC) TAB PO SCH (09:21)
[2021-12-01] MEDS: SENNA W/DOCUSATE (SENOKOT S) TABLET PO SCH (09:21)
[2021-12-01] MEDS: GABAPENTIN 400 MG (NEURONTIN) CAP PO SCH ×2 (09:22→21:49)
[2021-12-01] MEDS: COLLAGENASE 30 GM (SANTYL) TUBE TP SCH ×2 (09:22→21:50)
[2021-12-01] MEDS: NS IV 1000 ML 1,000 ML IV SCH (09:26)
[2021-12-01] MEDS: ENOXAPARIN 40 MG/0.4 ML (LOVENOX) SYR SQ SCH (14:23)
[2021-12-01] MEDS: rOPINIRole 0.25 MG (REQUIP) TAB PO SCH (17:48)
[2021-12-01] MEDS: meTOprolol SUCCINATE 100 MG (TOPROL XL) TAB PO SCH (17:49)
--- NOTE | 2021-12-01 21:24 | Progress Note ---
Subjective Subjective/Events-last exam Patient states she is still in horrible pain but more comfortable when laying on her back. She has a poor appetite but is eating. Review of Systems General: Fatigue, Malaise Pulmonary: No Dyspnea, No Cough Cardiovascular: No: Chest Pain, Palpitations, Edema Gastrointestinal: No: Nausea, Vomiting, Abdominal Pain, Diarrhea, Constipation Musculoskeletal: back pain Neurological: Weakness, Incoordination Objective Exam Last Set of Vital Signs Vital Signs Date Time Temp Pulse Resp B/P (MAP) Pulse Ox O2 Delivery O2 Flow Rate FiO2 12/01/21 19:16 38.5 87 19 181/88 (119) 95 Room Air 11/27/21 20:52 21 11/26/21 09:00 2.00 Capillary Refill : Less Than 3 Seconds I&O Intake and Output 11/30/21 23:59 Intake Total 1365 ml Output Total 3250 ml Balance -1885 ml Intake Oral 1165 ml IV Total 200 ml Output Urine Total 3250 ml General: Alert, Oriented X3, Moderate Distress (with any movement) Lungs: Clear to Auscultation, Normal Air Movement Heart: Regular Rate, No Murmurs Abdomen: Normal Bowel Sounds, Soft, No Tenderness, No Masses Extremities: No Tenderness/Swelling Neuro: Normal Speech, Other (She will not sit up due to pain) Results/Procedures Lab Laboratory Tests 12/01/21 06:10: Glucometer 121H 12/01/21 06:30: White Blood Count 9.3, Red Blood Count 2.68L, Hemoglobin 8.0L, Hematocrit 24L, Mean Corpuscular Volume 90, Mean Corpuscular Hemoglobin 30, Mean Corpuscular Hemoglobin Concent 33, Red Cell Distribution Width 13.4, Platelet Count 229, Mean Platelet Volume 9.3, Immature Granulocyte % (Auto) 2, Neutrophils (%) (Auto) 56, Lymphocytes (%) (Auto) 27, Monocytes (%) (Auto) 8, Eosinophils (%) (Auto) 6, Basophils (%) (Auto) 1, Neutrophils # (Auto) 5.2, Lymphocytes # (Auto) 2.5, Monocytes # (Auto) 0.7, Eosinophils # (Auto) 0.6H, Basophils # (Auto) 0.1, Immature Granulocyte # (Auto) 0.1, Sodium Level 139, Potassium Level 3.6, Chloride Level 108H, Carbon Dioxide Level 22, Anion Gap 9, Blood Urea Nitrogen 16, Creatinine 1.06, Estimat Glomerular Filtration Rate 53, BUN/Creatinine Ratio 15, Glucose Level 138H, Calcium Level 8.3L, Corrected Calcium 9.8, Total Bilirubin 0.2, Aspartate Amino Transf (AST/SGOT) 9, Alanine Aminotransferase (ALT/SGPT) < 6, Alkaline Phosphatase 49, Total Protein 5.6L, Albumin 2.1L 12/01/21 12:14: Glucometer 342H 12/01/21 17:15: Glucometer 360H 12/01/21 20:49: Glucometer 360H Microbiology 11/27/21 Gram Stain - Final, Complete 11/27/21 Wound Culture - Final, Complete Mixed Bacterial Eileen Staphylococcus aureus 11/25/21 Blood Culture - Final, Complete Staphylococcus epidermidis See Comments Assessment/Plan Assessment/Plan (1) Bilateral pneumonia Status: Acute Assessment & Plan: 12/01: Doing well on RA, continue antibiotics Qualifiers: Qualified Codes: J18.9 - Pneumonia, unspecified organism (2) Lytic bone lesions on xray Status: Acute Assessment & Plan: 12/01: Patient in need of surgery with bx of lesion, concerning for malignancy (3) Sacral wound Status: Acute Assessment & Plan: 12/01: Wound care following (4) Compression fracture of L2 Status: Acute (5) IDDM (insulin dependent diabetes mellitus) Status: Acute Assessment & Plan: 12/01: Labial and brittle DM, will continue to follow blood sugars (6) Iron deficiency anemia due to chronic blood loss Status: Acute (7) HTN (hypertension) Status: Chronic Assessment & Plan: 12/01: Restart home meds (8) Physical debility Status: Acute Assessment & Plan: 12/01: Discussed the importance of PT Clinical Quality Measures Smoking Cessation Counseling: Counseling-Symptomatic: 3-10 Minutes ALEXX ZIMMER MD Dec 01, 2021 21:24
[2021-12-02] VITALS (12 sets, daily range): BP systolic 134–197; BP diastolic 65–107
[2021-12-02] MEDS: NS IV 1000 ML 1,000 ML IV SCH (04:23)
[2021-12-02 05:23] LABS: BASOPHILS # (AUTO) 0.1 10^3/uL (0.0-0.1); BASOPHILS % (AUTO) 1 % (0-10); EOSINOPHILS # (AUTO) 0.4 10^3/uL (0.0-0.3); EOSINOPHILS % (AUTO) 4 % (0-10); HEMATOCRIT 24 % (35-52); LYMPHOCYTES # (AUTO) 2.8 10^3/uL (1.0-4.0); LYMPHOCYTES % (AUTO) 26 % (12-44); MEAN CORPUSCULAR HEMOGLOBIN 30 pg (25-34); MEAN CORPUSCULAR HGB CONC 34 g/dL (32-36); MEAN CORPUSCULAR VOLUME 90 fL (80-99); MEAN PLATELET VOLUME 9.6 fL (9.0-12.2); MONOCYTES # (AUTO) 0.8 10^3/uL (0.0-1.0); MONOCYTES % (AUTO) 7 % (0-12); NEUTROPHILS # (AUTO) 6.3 10^3/uL (1.8-7.8); NEUTROPHILS % (AUTO) 60 % (42-75); PLATELET COUNT 232 10^3/uL (130-400); WHITE BLOOD COUNT 10.5 10^3/uL (4.3-11.0)
[2021-12-02 05:42] LABS: ALBUMIN 2.1 GM/DL (3.2-4.5)
[2021-12-02 05:43] LABS: CHLORIDE 107 MMOL/L (98-107); POTASSIUM 3.4 MMOL/L (3.6-5.0); SODIUM 139 MMOL/L (135-145)
[2021-12-02 05:44] LABS: CALCIUM 8.3 MG/DL (8.5-10.1)
[2021-12-02 05:45] LABS: GLUCOSE 209 MG/DL (70-105); TOTAL PROTEIN 5.6 GM/DL (6.4-8.2)
[2021-12-02 05:46] LABS: CARBON DIOXIDE 22 MMOL/L (21-32)
[2021-12-02 05:47] LABS: BILIRUBIN,TOTAL 0.2 MG/DL (0.1-1.0)
[2021-12-02 05:48] LABS: ALKALINE PHOSPHATASE 49 U/L (40-136)
[2021-12-02 05:49] LABS: CREATININE SERUM 1.05 MG/DL (0.60-1.30); GFR ESTIMATED 53
[2021-12-02 05:50] LABS: BUN/CREATININE RATIO 15
[2021-12-02 05:51] LABS: ALANINE AMINOTRANSFERASE < 6 U/L (0-55)
[2021-12-02] MEDS: SUCRALFATE 1 GM (CARAFATE) TAB PO SCH ×4 (06:31→21:54)
[2021-12-02] MEDS: PANTOPRAZOLE 40 MG (PROTONIX) TAB PO SCH ×2 (06:31→14:26)
[2021-12-02] MEDS: polyethylene glycoL POWDER 17 GM (MIRALAX) PACK PO SCH ×2 (06:31→17:03)
[2021-12-02] MEDS: inSUlin ASPART (NovoLOG) 1 UNIT/0.01 ML (CHARGE PER UNIT) SC SCH ×4 (06:31→21:54)
[2021-12-02] MEDS: DIVALPROX SPRINKLE 125 MG (DEPAKOTE) CAP PO SCH ×2 (06:31→17:29)
--- NOTE | 2021-12-02 07:40 | Progress Note - Surgery ---
CRUZ [employer] STUDENT 12/02/21 0740: Subjective Date Seen by a Provider: Dec 02, 2021 Time Seen by a Provider: 07:20 Subjective/Events-last exam Mrs. Urbano is lying in bed this morning, she is easily woken. She states that she is doing okay and isn't in too much pain right now. She has been NPO and has not had anything to eat or drink. She has a catheter in, 350mL of clear, normal looking urine. She is having bowel movements. She has PT/OT scheduled for today. I did not look at her wound today but she is going to OR for debriedment. Nurse states they have been continuing wound care and there are no new problems with the wound. Review of Systems General: No Chills HEENT: No Head Aches, No Visual Changes Pulmonary: No Dyspnea, No Cough Cardiovascular: No: Chest Pain, Palpitations, Edema Gastrointestinal: No: Nausea, Vomiting, Abdominal Pain, Diarrhea, Constipation, Melena Genitourinary: No Dysuria, No Frequency, No Hematuria Musculoskeletal: back pain (Lumbar); No: leg pain, foot pain Objective Exam Vital Signs Date Time Temp Pulse Resp B/P (MAP) Pulse Ox O2 Delivery O2 Flow Rate FiO2 12/02/21 04:03 37.4 65 18 134/65 (88) 96 Room Air 12/02/21 00:40 37.0 74 18 167/77 (107) 96 Room Air 12/01/21 20:00 37.1 80 18 162/73 (102) 95 Room Air 12/01/21 20:00 Room Air 12/01/21 19:16 38.5 87 19 181/88 (119) 95 Room Air 12/01/21 15:42 37.5 77 22 163/73 (103) 97 Room Air 12/01/21 12:00 36.5 72 18 160/72 (101) 97 Room Air 12/01/21 08:00 36.4 63 18 161/74 (103) 97 Room Air 12/01/21 08:00 97 Room Air I & O 12/02/21 07:00 Intake Total 750 ml Output Total 1500 ml Balance -750 ml Capillary Refill : Less Than 3 Seconds General Appearance: No Apparent Distress, Chronically ill HEENT: Pharynx Normal, Moist Mucous Membranes Neck: Non Tender Respiratory: Chest Non Tender, Lungs Clear, Normal Breath Sounds, No Accessory Muscle Use, No Respiratory Distress Cardiovascular: Regular Rate, Rhythm, No Edema, No Murmur, Normal Peripheral Pulses Peripheral Pulses: 2+ Dorsalis Pedis (R), 2+ Left Dors-Pedis (L), 2+ Radial Pulses (R), 2+ Radial Pulses (L) Gastrointestinal: normal bowel sounds, non tender, soft, no organomegaly Extremity: Normal Inspection, Non Tender, No Calf Tenderness, No Pedal Edema Neurologic/Psychiatric: Alert, Oriented x3 Skin: Normal Color, Warm/Dry, Other (Stage IV sacral decub ulcer, Dressed) Other comments Bateman catheter Results Lab Laboratory Tests 12/01/21 12:14: Glucometer 342H 12/01/21 17:15: Glucometer 360H 12/01/21 20:49: Glucometer 360H 12/02/21 05:05: White Blood Count 10.5, Red Blood Count 2.66L, Hemoglobin 8.0L, Hematocrit 24L, Mean Corpuscular Volume 90, Mean Corpuscular Hemoglobin 30, Mean Corpuscular Hemoglobin Concent 34, Red Cell Distribution Width 13.4, Platelet Count 232, Mean Platelet Volume 9.6, Immature Granulocyte % (Auto) 1, Neutrophils (%) (Auto) 60, Lymphocytes (%) (Auto) 26, Monocytes (%) (Auto) 7, Eosinophils (%) (Auto) 4, Basophils (%) (Auto) 1, Neutrophils # (Auto) 6.3, Lymphocytes # (Auto) 2.8, Monocytes # (Auto) 0.8, Eosinophils # (Auto) 0.4H, Basophils # (Auto) 0.1, Immature Granulocyte # (Auto) 0.1, Sodium Level 139, Potassium Level 3.4L, Chloride Level 107, Carbon Dioxide Level 22, Anion Gap 10, Blood Urea Nitrogen 16, Creatinine 1.05, Estimat Glomerular Filtration Rate 53, BUN/Creatinine Ratio 15, Glucose Level 209H, Calcium Level 8.3L, Corrected Calcium 9.8, Total Bilirubin 0.2, Aspartate Amino Transf (AST/SGOT) 7, Alanine Aminotransferase (ALT/SGPT) < 6, Alkaline Phosphatase 49, Total Protein 5.6L, Albumin 2.1L 12/02/21 06:10: Glucometer 204H Microbiology 11/27/21 Gram Stain - Final, Complete 11/27/21 Wound Culture - Final, Complete Mixed Bacterial Eileen Staphylococcus aureus 11/25/21 Blood Culture - Final, Complete Staphylococcus epidermidis See Comments Assessment/Plan Assessment/Plan Assessment/Plan Bilateral pneumonia Stage IV decubitus ulcer with possible Osteomyelitis Hypoglycemia HypoKalemia Anemia Patient is going to OR today for debriedment. Patient has been NPO and understands that she is having surgery. Talked with patient about importance of moving around and getting off of her sacral area post surgery or the problem wi ll only get worse. She has PT/OT scheduled today so should help her get off her back. Social work note states that patients sister wants her to go home and would like to take care of her there. It would probably be best if pt went to an assisted living facility or at least had home PT, otherwise she risks just laying in bed all day and getting worse. After procedure will continue with wound care and dressing changes, as well as positioning her as well as possible. She is oriented x3 this morning, glucose 204, she is on insulin. She did not complain of any pain this morning, but has pain meds. Her potassium is 3.4 this morning.. Anemia at 8.0 this morning, Both HGB and K improved from yesterday. She has completed her course of Vancomycin. Clinical Quality Measures Smoking Cessation Counseling: Counseling-Symptomatic: 3-10 Minutes WALLACE AYON DO 12/02/21 0958: Subjective Time Seen by a Provider: 09:46 Subjective/Events-last exam Pt seen and examined, no changes. Asked if she is ready for surgery today and she said yes. Review of Systems General: No Chills Pulmonary: No Dyspnea, No Cough Cardiovascular: No: Chest Pain, Palpitations Musculoskeletal: back pain (Lumbar) Objective Exam General Appearance: No Apparent Distress, Chronically ill Respiratory: Lungs Clear, Normal Breath Sounds, No Accessory Muscle Use, No Respiratory Distress Cardiovascular: Regular Rate, Rhythm, No Murmur Gastrointestinal: non tender, soft Skin: Other (Stage IV sacral decub ulcer, Dressed) Assessment/Plan Assessment/Plan Assessment/Plan Bilateral pneumonia Stage IV decubitus ulcer with possible Osteomyelitis Hypoglycemia HypoKalemia Anemia Patient is going to OR today for debridement. Patient has been NPO and understands that she is having surgery. Talked with patient about importance of moving around and getting off of her sacral area post surgery or the problem will only get worse. She has PT/OT scheduled today so should help her get off her back. Social work note states that patients sister wants her to go home and would like to take care of her there. It would probably be best if pt went to an assisted living facility or at least had home PT, otherwise she risks just laying in bed all day and getting worse. After procedure will continue with wound care and dressing changes, as well as positioning her as well as possible. Supervisory-Addendum Brief Verification & Attestation Participated in pt care: history, MDM, physical Personally performed: exam, history, MDM, supervision of care Care discussed with: Medical Student Procedures: n/a Verification and Attestation of Medical Student E/M Service A medical student performed and documented this service. I then reviewed and verified all information documented by the medical student and made modifications to such information, when appropriate. I personally performed a physical exam, medical decision making and then discussed any differences between the notes and made revisions as necessary to create one note. Wallace Ayon , 12/02/21 , 09:58 [facility] STUDENT Dec 02, 2021 07:40 WALLACE AYON DO Dec 02, 2021 09:58
[2021-12-02] MEDS: SENNA W/DOCUSATE (SENOKOT S) TABLET PO SCH (08:53)
[2021-12-02] MEDS: GABAPENTIN 400 MG (NEURONTIN) CAP PO SCH ×2 (08:53→21:54)
[2021-12-02] MEDS: amLODIPine 10 MG (NORVASC) TAB PO SCH (08:53)
[2021-12-02] MEDS: COLLAGENASE 30 GM (SANTYL) TUBE TP SCH ×2 (09:15→21:55)
[2021-12-02] MEDS: lisINopril 20 MG (PRINIVIL) TABLET PO SCH (10:11)
[2021-12-02] MEDS ORDERED: LACTATED RINGERS 1,000 ML IV PRN ×2 (10:15→11:30)
--- NOTE | 2021-12-02 10:59 | Physical Therapy Evaluation ---
PT Evaluation-General Medical Diagnosis Admission Date Nov 25, 2021 at 14:57 Medical Diagnosis: bilateral pneumonia/weakness Onset Date: Nov 25, 2021 Therapy Diagnosis Therapy Diagnosis: severe weakness/debility Height/Weight Height (Feet): 5 Height (Inches): 1.00 Weight (Pounds): 122 Weight (Ounces): 1.0 Precautions Precautions/Isolations: Contact Isolation, Droplet Isolation, Fall Prevention, Pressure Ulcer Weight Bear Status Right Lower Extremity: Right Full Weight Bearing Left Lower Extremity: Left Full Weight Bearing Referral Physician: Jacky Reason for Referral: Evaluation/Treatment Medical History Pertinent Medical History: Alcoholism, CAD, DM, GERD, HTN, Neuropathy, Renal Insufficiency, Smoking Current History EMS from [place] secondary to hypoglycemia Social History Home: [place] Prior Level of Function SCALE: Activities may be completed with or without assistive devices. 7-Ochdpaqraf-irxnhjn completes the activity by him/herself with no assistance from a helper. 5-Set-up or Clean-up Assistance-helper sets up or cleans up; patient completes activity. [place] assists only prior to or following the activity. 4-Supervision or Touching Assistance-helper provides verbal cues and/or touching/steadying and/or contact guard assistance as patient completes act ivity. Assistance may be provided throughout the activity or intermittently. 3-Partial/Moderate Assistance-helper does LESS THAN HALF the effort. [place] lifts, holds or supports trunk or limbs, but provides less than half the effort. 2-Substantial/Maximal Assistance-helper does MORE THAN HALF the effort. [place] lifts or holds trunk or limbs and provides more than half the effort. 0-Mtjgwbtka-qsjjhr does ALL the effort. Patient does none of the effort to complete the activity. Or, the assistance of 2 or more helpers is required for the patient to complete the activity. If activity was not attempted, code reason: 7-Patient Refused. 9-Not Applicable-not attempted and the patient did not perform the activity before the current illness, exacerbation or injury. 10-Not Attempted due to Environmental Limitations-(lack of equipment, weather restraints, etc.). 88-Not Attempted due to Medical Conditions or Safety Concerns. Bed Mobility: 2 Transfers (B,C,W/C): 2 PT Evaluation-Current Subjective Patient states, "I will work with PT today." Pain Numeric Pain Scale: 10-Worst Possible Pain Location: Lower Location Body Site: Back Pain Description: Chronic, Tingling Comment: FLACC with patient yelling Objective Patient Orientation: Confused Attachments: Bateman Catheter, IV ROM/Strength ROM Lower Extremities bilateral LE WFL Strength Lower Extremities 3-/5 grossly bilateral LE (no formal testing) Integumentary/Posture Integumentary refer to nursing notes Bowel Incontinence: Yes Bladder Incontinence: Bateman Cath Neuromuscular (Tone, Coordination, Reflexes) severely diminished coordination Sensory Vision: Wears Glasses Transfers Roll Left to Right (QC): 1 Sit to Lying (QC): 1 Lying to Sitting/Side of Bed(Q: 1 Sit to Stand (QC): 88 Chair/Kly-rp-Kwnna Xfer(QC): 88 Balance Sitting Static: Poor Sitting Dynamic: Poor Assessment/Needs Patient yelled/screamed during entire session due to back and LE pain. Patient is to have surgical debridement of coccyx wound on this date. Patient would benefit from skilled PT if able and willing to participate. Rehab Potential: Guarded PT Snf Goals [employer] Goals PT Snf Goals Time Frame: Dec 20, 2021 Roll Left & Right (QC): 2 Sit to Lying (QC): 2 Lying-Sitting on Side/Bed(QC): 2 Sit to Stand (QC): 2 PT Plan Problem List Problem List: Activity Tolerance, Functional Strength, Safety, Balance, Gait, Transfer, Bed Mobility Treatment/Plan Treatment Plan: Continue Plan of Care Treatment Plan: Bed Mobility, Education, Functional Activity Yue, Functional Strength, Gait, Safety, Therapeutic Exercise, Transfers Treatment Duration: Dec 20, 2021 Frequency: 5 times per week Estimated Hrs Per Day: .25 hour per day Patient and/or Family Agrees t: Yes Time/GCodes Time In: 855 Time Out: 908 Total Billed Treatment Time: 13 Total Billed Treatment 1 visit EVModC 13 min KELVIN CALVO PT Dec 02, 2021 10:59
[2021-12-02] MEDS ORDERED: MEPERIDINE (DEMEROL) INJ 50 MG/ML IVP ONE (11:30)
[2021-12-02] MEDS ORDERED: ONDANSETRON 4 MG/2 ML (SDV) Z0FRAN IVP PRN (11:30)
[2021-12-02] MEDS ORDERED: PROMETHAZINE INJ 25 MG/ML (PHENERGAN) AMP IVP ONE (11:30)
[2021-12-02] MEDS ORDERED: morphine INJ 10 MG/ML 1ML (SYR OR VIAL) IVP ONE (11:30)
[2021-12-02] MEDS ORDERED: ceFAZolin 2 GM IV Premixed 50 ML IV ONE (11:45)
[2021-12-02] MEDS ORDERED: ceFAZolin INJECTION 2,000 MG ONE (11:49)
--- NOTE | 2021-12-02 12:02 | Progress Note-Post Operative ---
Post-Operative Progess Note Surgeon (s)/Strip Polisher (s) Surgeon ORI AYON DO Strip Polisher: BRENDON Weinstein Pre-Operative Diagnosis Sacral Decub with necrotic tissue Post-Operative Diagnosis same down to bone Procedure & Operative Findings Date of Procedure 12/02/21 Procedure Performed/Findings Debridement of necrotic tissue 4x3.5x2cm; fascia, muscle, subQ fat and skin Anesthesia Type LMA Estimated Blood Loss Estimated blood loss (mL): less than 20ml Specimens/Packing Specimens Removed necrotic tissue; fascia, muscle, subQ fat and skin ORI AYON DO Dec 02, 2021 12:02
[2021-12-02] MEDS ORDERED: morphine INJ 10 MG/ML 1ML (SYR OR VIAL) ONE (12:36)
[2021-12-02] MEDS ORDERED: PATCH REMOVAL TP SCH (13:00)
--- NOTE | 2021-12-02 13:45 | Occ Therapy Progress Note ---
Therapy Progress Note OT orders received and chart reviewed. OT evaluation attempted but pt just returned to her room from getting her wound surgically debrided. Pt's nurse requests OT to hold therapy this afternoon, as pt just returned to her room and is resting. OT will attempt evaluation tomorrow. VERNELL FERRER OT Dec 02, 2021 13:45
[2021-12-02] MEDS: ENOXAPARIN 40 MG/0.4 ML (LOVENOX) SYR SQ SCH (14:23)
[2021-12-02] MEDS: fentaNYL PATCH 25 MCG (DURAGESIC) TD SCH (14:23)
[2021-12-02] MEDS: meTOprolol SUCCINATE 100 MG (TOPROL XL) TAB PO SCH (17:29)
[2021-12-02] MEDS: rOPINIRole 0.25 MG (REQUIP) TAB PO SCH (17:29)
--- NOTE | 2021-12-02 17:43 | Progress Note ---
Subjective Subjective/Events-last exam Patient states that she is ok today. Pain worse with any movement. She worked with PT some today. Review of Systems General: Fatigue, Malaise Pulmonary: No Dyspnea, No Cough Cardiovascular: No: Chest Pain, Palpitations, Edema Gastrointestinal: No: Nausea, Vomiting, Diarrhea, Constipation Musculoskeletal: back pain Neurological: Weakness, Incoordination Objective Exam Last Set of Vital Signs Vital Signs Date Time Temp Pulse Resp B/P (MAP) Pulse Ox O2 Delivery O2 Flow Rate FiO2 12/02/21 16:00 37.4 71 20 180/85 (116) 95 Room Air 12/02/21 12:45 1 11/27/21 20:52 21 Capillary Refill : Less Than 3 SecondsLess Than 3 Seconds I&O Intake and Output 12/02/21 00:00 Intake Total 950 ml Output Total 1400 ml Balance -450 ml Intake Oral 950 ml Output Urine Total 1400 ml # Bowel Movements 1 General: Alert, Oriented X3, Moderate Distress (with any movement) Lungs: Clear to Auscultation, Normal Air Movement Heart: Regular Rate, No Murmurs Abdomen: Normal Bowel Sounds, Soft, No Tenderness, No Masses Neuro: Normal Speech Results/Procedures Lab Laboratory Tests 12/01/21 20:49: Glucometer 360H 12/02/21 05:05: White Blood Count 10.5, Red Blood Count 2.66L, Hemoglobin 8.0L, Hematocrit 24L, Mean Corpuscular Volume 90, Mean Corpuscular Hemoglobin 30, Mean Corpuscular Hemoglobin Concent 34, Red Cell Distribution Width 13.4, Platelet Count 232, Mean Platelet Volume 9.6, Immature Granulocyte % (Auto) 1, Neutrophils (%) (Auto) 60, Lymphocytes (%) (Auto) 26, Monocytes (%) (Auto) 7, Eosinophils (%) (Auto) 4, Basophils (%) (Auto) 1, Neutrophils # (Auto) 6.3, Lymphocytes # (Auto) 2.8, Monocytes # (Auto) 0.8, Eosinophils # (Auto) 0.4H, Basophils # (Auto) 0.1, Immature Granulocyte # (Auto) 0.1, Sodium Level 139, Potassium Level 3.4L, Chloride Level 107, Carbon Dioxide Level 22, Anion Gap 10, Blood Urea Nitrogen 16, Creatinine 1.05, Estimat Glomerular Filtration Rate 53, BUN/Creatinine Ratio 15, Glucose Level 209H, Calcium Level 8.3L, Corrected Calcium 9.8, Total Bilirubin 0.2, Aspartate Amino Transf (AST/SGOT) 7, Alanine Aminotransferase (ALT/SGPT) < 6, Alkaline Phosphatase 49, Total Protein 5.6L, Albumin 2.1L 12/02/21 06:10: Glucometer 204H 12/02/21 11:01: Glucometer 254H 12/02/21 17:18: Glucometer 230H Microbiology 11/27/21 Gram Stain - Final, Complete 11/27/21 Wound Culture - Final, Complete Mixed Bacterial Eileen Staphylococcus aureus 11/25/21 Blood Culture - Final, Complete Staphylococcus epidermidis See Comments Assessment/Plan Assessment/Plan (1) Lytic bone lesions on xray Status: Acute Assessment & Plan: 12/01: Patient in need of surgery with bx of lesion, concerning for malignancy 12/02: Discussed with patient the need for bx and surgery, she would like to know what is going on and would like it worked up, Patient states she was going to [facility] because it was the earliest she could get in, but now she states that it is too far away, will check with Dr Tucker regarding workup. (2) Bilateral pneumonia Status: Resolved Assessment & Plan: 12/01: Doing well on RA, continue antibiotics Qualifiers: Qualified Codes: J18.9 - Pneumonia, unspecified organism (3) Sacral wound Status: Acute Assessment & Plan: 12/01: Wound care following 12/02: Debrided today in OR (4) Compression fracture of L2 Status: Acute (5) IDDM (insulin dependent diabetes mellitus) Status: Acute Assessment & Plan: 12/01: Labial and brittle DM, will continue to follow blood sugars (6) Iron deficiency anemia due to chronic blood loss Status: Acute (7) HTN (hypertension) Status: Chronic Assessment & Plan: 12/01: Restart home meds (8) Physical debility Status: Acute Assessment & Plan: 12/01: Discussed the importance of PT Clinical Quality Measures Smoking Cessation Counseling: Counseling-Symptomatic: 3-10 Minutes ALEXX ZIMMER MD Dec 02, 2021 17:43
--- NOTE | 2021-12-02 20:56 | OPERATIVE REPORT ---
DATE OF SERVICE: 12/02/2021 PREOPERATIVE DIAGNOSES: Sacral decubitus ulcer with necrotic tissue. POSTOPERATIVE DIAGNOSIS: Sacral decubitus ulcer with necrotic tissue. PROCEDURE: Debridement of necrotic tissue from sacral decubitus ulcer measuring 4 x 3.5 x 2 cm, debrided skin, subcutaneous fat, muscle and fascia. SURGEON: Wallace Villegas DO MEDIA SUPERVISOR: Randal Jensen, MS4. ANESTHESIA: LMA. BLOOD LOSS: Less than 20 mL. FLUIDS: Per anesthesia. POSTOPERATIVE CONDITION: Stable. SPECIMEN: Necrotic skin, fat, muscle and fascia. INDICATION FOR PROCEDURE: The patient is a 61-year-old female, who unfortunately has a sacral decubitus because she has a lumbar compression fracture and she has not been moving; in fact she has been refusing to move. FINDINGS: The patient had necrotic tissue all the way down to the sacrum right down to the bone. PROCEDURE NOTE: After informed consent was obtained, the patient was brought to the operating room, placed on the operating table in right lateral decubitus position. She was sterilely prepped and draped in normal fashion. I started cutting off the necrotic tissue with Bovie electrocautery going through the skin to fresh tissue and then down through the skin into the subcutaneous fat and then down through this to the muscle and fascia down to the bone of the sacrum measured about 4 cm long x about 3.5 cm in the superior caudad cephalad direction and about 2 cm deep, took off all the necrotic tissue, passed this off table and sent to pathology, cut back and debrided until we got to some fresh bleeding tissue. Bleeding was controlled with Bovie electrocautery. Copiously irrigated with normal saline and then packed this with iodoform packing. The area was then cleaned and dried, dressing placed. The patient tolerated the procedure. Sponge, instrument and needle count correct at the end of the case. She was transferred to recovery room in stable condition. Job ID: [id number] DocumentID: [id number] Dictated Date: 12/02/2021 13:52:31 Claim Trainee Date: 12/02/2021 20:55:36 Dictated By: WALLACE VILLEGAS DO [facility]
[2021-12-03] VITALS: BP 167/81
[2021-12-03 04:00] VITALS: BP 164/78
[2021-12-03 05:00] LABS: BASOPHILS # (AUTO) 0.1 10^3/uL (0.0-0.1); BASOPHILS % (AUTO) 1 % (0-10); EOSINOPHILS # (AUTO) 0.4 10^3/uL (0.0-0.3); EOSINOPHILS % (AUTO) 4 % (0-10); HEMATOCRIT 25 % (35-52); HEMOGLOBIN 8.3 g/dL (11.5-16.0); LYMPHOCYTES # (AUTO) 2.3 10^3/uL (1.0-4.0); LYMPHOCYTES % (AUTO) 23 % (12-44); MEAN CORPUSCULAR HEMOGLOBIN 29 pg (25-34); MEAN CORPUSCULAR HGB CONC 33 g/dL (32-36); MEAN CORPUSCULAR VOLUME 89 fL (80-99); MEAN PLATELET VOLUME 9.5 fL (9.0-12.2); MONOCYTES # (AUTO) 0.6 10^3/uL (0.0-1.0); MONOCYTES % (AUTO) 6 % (0-12); NEUTROPHILS # (AUTO) 6.6 10^3/uL (1.8-7.8); NEUTROPHILS % (AUTO) 65 % (42-75); PLATELET COUNT 264 10^3/uL (130-400); WHITE BLOOD COUNT 10.1 10^3/uL (4.3-11.0)
[2021-12-03 05:34] LABS: CALCIUM 8.4 MG/DL (8.5-10.1); CREATININE SERUM 1.03 MG/DL (0.60-1.30); POTASSIUM 3.5 MMOL/L (3.6-5.0)
[2021-12-03] MEDS: DIVALPROX SPRINKLE 125 MG (DEPAKOTE) CAP PO SCH ×2 (05:40→17:24)
[2021-12-03] MEDS: polyethylene glycoL POWDER 17 GM (MIRALAX) PACK PO SCH ×2 (05:41→17:17)
[2021-12-03] MEDS: PANTOPRAZOLE 40 MG (PROTONIX) TAB PO SCH ×2 (05:41→15:22)
[2021-12-03] MEDS: inSUlin ASPART (NovoLOG) 1 UNIT/0.01 ML (CHARGE PER UNIT) SC SCH ×4 (05:41→22:08)
[2021-12-03] MEDS: SUCRALFATE 1 GM (CARAFATE) TAB PO SCH ×4 (05:41→22:08)
--- NOTE | 2021-12-03 07:40 | Progress Note - Surgery ---
CRUZ [employer] MED STUDENT 12/03/21 0740: Subjective Date Seen by a Provider: Dec 03, 2021 Time Seen by a Provider: 07:30 Subjective/Events-last exam Mrs Urbano is laying in bed this morning. Says she has some pain in her butt area but had surgery there yesterday. When I looked at the wound the pad was a bit saturated with blood, the same dressing from surgery was on it. Was packed with iodoform that was saturated with blood. Wound base was pretty bloody and was hard to see entirety well but did not see any necrotic tissue. Nurse states they are just waiting for orders on dressing changes. She states she has not eaten or had anything to drink since surgery. No nausea/vomiting. She has a catheter in, clear normal looking urine. No problems with bowel movements. She did PT yesterday a little bit before surgery. Review of Systems General: No Chills HEENT: No Head Aches, No Visual Changes Pulmonary: No Dyspnea, No Cough Cardiovascular: No: Chest Pain, Palpitations, Edema Gastrointestinal: Other (decreased appetite); No: Nausea, Vomiting, Abdominal Pain, Diarrhea, Constipation, Melena Genitourinary: No Dysuria, No Incontinence, No Hematuria; Other (mo catheter) Musculoskeletal: back pain (lumbar and buttock area); No: leg pain, foot pain Objective Exam Vital Signs Date Time Temp Pulse Resp B/P (MAP) Pulse Ox O2 Delivery O2 Flow Rate FiO2 12/03/21 04:00 37.1 66 18 164/78 (106) 95 Room Air 12/03/21 00:00 36.7 73 18 167/81 (109) 97 Room Air 12/02/21 22:42 36.9 12/02/21 21:50 95 Room Air 12/02/21 20:00 36.9 66 16 180/81 (114) Room Air 12/02/21 16:00 37.4 71 20 180/85 (116) 95 Room Air 12/02/21 13:05 37.1 11 182/93 (122) 96 Room Air 12/02/21 13:04 Room Air 12/02/21 13:00 11 184/91 (122) 97 Room Air 12/02/21 12:54 Room Air 12/02/21 12:50 12 172/87 (115) 98 Room Air 12/02/21 12:45 OxyMask 1 12/02/21 12:41 11 197/95 (129) 100 OxyMask 2 12/02/21 12:30 10 195/107 (136) 100 OxyMask 3 12/02/21 12:29 OxyMask 8 12/02/21 12:20 16 177/88 (117) 100 OxyMask 8 12/02/21 12:14 36.6 16 147/73 (97) 99 OxyMask 8 12/02/21 12:14 OxyMask 8 12/02/21 08:57 37.6 69 16 176/83 (114) 93 Room Air 12/02/21 08:51 Room Air I & O 12/03/21 07:00 Intake Total 1150 ml Output Total 1725 ml Balance -575 ml Capillary Refill : Less Than 3 SecondsLess Than 3 Seconds General Appearance: No Apparent Distress, Chronically ill, Other (Has pillow propped under her to help her stay off her sacrum) HEENT: Pharynx Normal, Moist Mucous Membranes Neck: Non Tender Respiratory: Chest Non Tender, Lungs Clear, Normal Breath Sounds, No Accessory Muscle Use, No Respiratory Distress Cardiovascular: Regular Rate, Rhythm, No Edema, No Murmur, Normal Peripheral Pulses Peripheral Pulses: 2+ Dorsalis Pedis (R), 2+ Left Dors-Pedis (L), 2+ Radial Pulses (R), 2+ Radial Pulses (L) Gastrointestinal: normal bowel sounds, non tender, soft Extremity: Normal Inspection, Non Tender, No Calf Tenderness, No Pedal Edema Neurologic/Psychiatric: Alert, Oriented x3 Skin: Normal Color, Warm/Dry, Other (Original pad from surgery on sacral ulcer. Has been soiled with blood. Still packed with iodoform, which is also saturated. Pretty bloody in wound but no necrotic tissue noted.) Results Lab Laboratory Tests 12/02/21 11:01: Glucometer 254H 12/02/21 17:18: Glucometer 230H 12/02/21 20:42: Glucometer 186H 12/03/21 04:45: White Blood Count 10.1, Red Blood Count 2.82L, Hemoglobin 8.3L, Hematocrit 25L, Mean Corpuscular Volume 89, Mean Corpuscular Hemoglobin 29, Mean Corpuscular Hemoglobin Concent 33, Red Cell Distribution Width 13.5, Platelet Count 264, Mean Platelet Volume 9.5, Immature Granulocyte % (Auto) 1, Neutrophils (%) (Auto) 65, Lymphocytes (%) (Auto) 23, Monocytes (%) (Auto) 6, Eosinophils (%) (Auto) 4, Basophils (%) (Auto) 1, Neutrophils # (Auto) 6.6, Lymphocytes # (Auto) 2.3, Monocytes # (Auto) 0.6, Eosinophils # (Auto) 0.4H, Basophils # (Auto) 0.1, Immature Granulocyte # (Auto) 0.1, Sodium Level 137, Potassium Level 3.5L, Chloride Level 106, Carbon Dioxide Level 21, Anion Gap 10, Blood Urea Nitrogen 14, Creatinine 1.03, Estimat Glomerular Filtration Rate 54, BUN/Creatinine Ratio 14, Glucose Level 212H, Calcium Level 8.4L 12/03/21 05:31: Glucometer 191H Microbiology 11/27/21 Gram Stain - Final, Complete 11/27/21 Wound Culture - Final, Complete Mixed Bacterial Eileen Staphylococcus aureus 11/25/21 Blood Culture - Final, Complete Staphylococcus epidermidis See Comments Assessment/Plan Assessment/Plan Assessment/Plan Bilateral pneumonia S/P debreidment of Stage IV decubitus ulcer (Day 1) Hypoglycemia HypoKalemia Anemia Pt has been doing okay since her surgery yesterday, says her pain isn't too bad but shes still having some, she is still on pain medication. Looks like it is healing well, is nice and bloody, will get orders in for wound dressings so nursing can change it. Will have to keep her off her back. PT/OT should be returning today, hopefully she can get a decent amount of time off of her back today. Social work note states they are trying to get her sent to [facility] which would be a good place to ensure that she is able to heal nicely. Will continue to watch wound for the rest of her stay. Clinical Quality Measures Smoking Cessation Counseling: Counseling-Symptomatic: 3-10 Minutes WALLACE AYON DO 12/04/21 0843: Subjective Time Seen by a Provider: 16:02 Subjective/Events-last exam Pt seen and examined, not really responding to questions (but not because she can't, she just won't). Pain is the same. Review of Systems General: No Chills Pulmonary: No Dyspnea, No Cough Cardiovascular: No: Chest Pain, Palpitations Musculoskeletal: back pain (lumbar and buttock area) Objective Exam General Appearance: No Apparent Distress, Chronically ill, Other (Has pillow propped under her to help her stay off her sacrum) Respiratory: Lungs Clear, Normal Breath Sounds, No Accessory Muscle Use, No Respiratory Distress Gastrointestinal: non tender, soft Skin: Other (Original pad from surgery on sacral ulcer. Has been soiled with blood. Still packed with iodoform, which is also saturated. Pretty bloody in wound but no necrotic tissue noted.) Assessment/Plan Assessment/Plan Assessment/Plan Bilateral pneumonia S/P debreidment of Stage IV decubitus ulcer (Day 1) Hypoglycemia HypoKalemia Anemia Pt has been doing okay since her surgery yesterday. When I asked her to plz move so the ulcer can heal, she just refused to answer; nurse says she has moved from side to side. Looks like it is healing well, is nice and bloody; will get orders in for wound dressings so nursing can change it. Will have to keep her off her back. PT/OT should be returning today, hopefully she can get a decent amount of time off of her back today. Social work note states they are trying to get her sent to [facility] which would be a good place to ensure that she is able to heal nicely. Will continue to watch wound for the rest of her stay. Supervisory-Addendum Brief Verification & Attestation Participated in pt care: history, MDM, physical Personally performed: exam, history, MDM, supervision of care Care discussed with: Medical Student Procedures: n/a Verification and Attestation of Medical Student E/M Service A medical student performed and documented this service. I then reviewed and verified all information documented by the medical student and made modificati ons to such information, when appropriate. I personally performed a physical exam, medical decision making and then discussed any differences between the notes and made revisions as necessary to create one note. Wallace Ayon , 12/04/21 , 08:43 [facility] STUDENT Dec 03, 2021 07:40 WALLACE AYON DO Dec 04, 2021 08:43
[2021-12-03 08:55] VITALS: BP 167/74
[2021-12-03] MEDS: SENNA W/DOCUSATE (SENOKOT S) TABLET PO SCH (09:30)
[2021-12-03] MEDS: amLODIPine 10 MG (NORVASC) TAB PO SCH (09:30)
[2021-12-03] MEDS: lisINopril 20 MG (PRINIVIL) TABLET PO SCH (09:31)
[2021-12-03] MEDS: GABAPENTIN 400 MG (NEURONTIN) CAP PO SCH ×2 (09:31→22:07)
[2021-12-03] MEDS: COLLAGENASE 30 GM (SANTYL) TUBE TP SCH ×2 (09:31→22:33)
--- NOTE | 2021-12-03 10:58 | Occupational Therapy Eval ---
OT Evaluation-General/PLF Medical Diagnosis Admission Date Nov 25, 2021 at 14:57 Medical Diagnosis: bilateral pneumonia/weakness Onset Date: Nov 25, 2021 Therapy Diagnosis Therapy Diagnosis: decreased ADL status Height/Weight Height (Feet): 5 Height (Inches): 1.00 Weight (Pounds): 122 Weight (Ounces): 1.0 Precautions Precautions/Isolations: Contact Isolation, Droplet Isolation, Fall Prevention, Pressure Ulcer Referral Physician: Jacky Referral Reason: Evaluation/Treatment Medical History Pertinent Medical History: Alcoholism, CAD, DM, GERD, HTN, Neuropathy, Renal Insufficiency, Smoking Current History EMS from retirement due to hypoglycemia Social History Home: [facility] ADL-Prior Level of Function SCALE: Activities may be completed with or without assistive devices. 5-Thtxpdgvrj-vkmswwt completes the activity by him/herself with no assistance from a helper. 5-Set-up or Clean-up Assistance-helper sets up or cleans up; patient completes activity. [place] assists only prior to or following the activity. 4-Supervision or Touching Assistance-helper provides verbal cues and/or touc nela/steadying and/or contact guard assistance as patient completes activity. Assistance may be provided throughout the activity or intermittently. 3-Partial/Moderate Assistance-helper does LESS THAN HALF the effort. [place] lifts, holds or supports trunk or limbs, but provides less than half the effort. 2-Substantial/Maximal Assistance-helper does MORE THAN HALF the effort. [place] lifts or holds trunk or limbs and provides more than half the effort. 2-Aizdmsrte-hyjnom does ALL the effort. Patient does none of the effort to complete the activity. Or, the assistance of 2 or more helpers is required for the patient to complete the activity. If activity was not attempted, code reason: 7-Patient Refused. 9-Not Applicable-not attempted and the patient did not perform the activity before the current illness, exacerbation or injury. 10-Not Attempted due to Environmental Limitations-(lack of equipment, weather restraints, etc.). 88-Not Attempted due to Medical Conditions or Safety Concerns. ADL PLOF Comments Pt indicates she requires assistance with all ADLs at the nursing facility. She is primarily bed bound and doesn't get out of bed much due to pain. Self Care: Needed Some Help Functional Cognition: Unknown OT Current Status Subjective Pt in bed, agreeable to OT Tx. Pt had difficulty keeping her eyes open throughout session and difficulty answering questions. Mental Status/Objective Patient Orientation: Person, Situation Current Glasses/Contacts: Yes Hearing Aids: No Dentures/Partials: No Hand Dominance: Right Upper Extremity ROM WFL, BUE shoulder flexion to approx 130 degrees (AAROM as pt unable to follow instructions for AROM testing) Upper Extremity Coordination decreased Upper Extremity Strength unable to formally assess due to pt being unable to follow instructions for testing. ADL-Treatment Eating (QC): 2 (Max A with breakfast.) Oral Hygiene (QC): 2 (Max A with oral care, pt placed sponge in mouth but did not move in "brushing" motion.) Shower/Bathe Self (QC): 1 (Per clincial judgment.) Lower Body Dressing (QC): 1 (Per clincial judgment.) On/Off Footwear (QC): 1 (Per clincial judgment.) Toileting Hygiene (QC): 1 (Per clincial judgment.) Other Treatments Pt in bed, agreeable to OT tx. Pt provided information about PLOF to her ability, pt had difficulty keeping her eyes open and answering questions. Pt participated in UE screen, AAROM performed due to difficulty following instructions as she kept closing her eyes. Pt agreeable to completing oral care, OT placed oral sponge in pt's R hand, pt able to bring to her mouth but did not initiate brushing pattern. OT assisted pt with brushing both sides of her mouth and brushing her tongue. Post tx, pt in bed, call light in reach and all needs met. Education OT Patient Education: Correct positioning, Energy conservation, Modified ADL techniques, Progress toward Goal/Update tx plan, Purpose of tx/functional activities, Rehab process Teaching Recipient: Patient Teaching Methods: Discussion Response to Teaching: Verbalize Understanding OT Water Treatment Specialist Goals Jail Goals Time Frame: Dec 12, 2021 Eating (QC): 5 Oral Hygiene (QC): 5 Toileting Hygiene (QC): 2 Upper Body Dressing (QC): 5 Additional Goals: 1-Demonstrate ADL Tasks, 2-Verbalize Understanding, 3- ImproveStrength/Yue 1=Demonstrate adherence to instructed precautions during ADL tasks. 2=Patient will verbalize/demonstrate understanding of assistive devices/modifications for ADL. 3=Patient will improve strength/tolerance for activity to enable patient to perform ADL's. OT Education/Plan Problem List/Assessment Assessment: Decreased Activ Tolerance, Decreased Safety Aware, Decreased UE Strength, Dependent Transfers, Impaired Bed Mobility, Impaired Cognition, Impaired Coordination, Impaired Funct Balance, Impaired I ADL's, Impaired Self- Care Skills, Restricted Funct UE ROM Discharge Recommendations Plan/Recommendations: Continue POC Treatment Plan/Plan of Care Patient would benefit from OT for education, treatment and training to promote independence in ADL's, mobility, safety and/or upper extremity function for ADL's. Plan of Care: ADL Retraining, Functional Mobility, UE Funct Exercise/Act Treatment Duration: Dec 12, 2021 Frequency: 3 times per week (3-5 times per week) Rehab Potential: Guarded Time/GCodes Start Time: 10:15 Stop Time: 10:25 Total Time Billed (hr/min): 10 Billed Treatment Time 1, VERNELL WILSON OT Dec 03, 2021 10:58
[2021-12-03] MEDS ORDERED: HYPOCHLOROUS ACID/NaCl (VASHE) 250 ML IR PRN (12:45)
[2021-12-03 12:48] VITALS: BP 136/66
--- NOTE | 2021-12-03 14:02 | Anesthesia-General Post-Op ---
General Patient Condition Mental Status/LOC: Same as Preop Cardiovascular: Satisfactory Nausea/Vomiting: Absent Respiratory: Satisfactory Pain: Controlled Complications: Absent Post Op Complications Complications None Follow Up Care/Instructions Patient Instructions None needed. Anesthesia/Patient Condition Patient Condition Patient is doing well, no complaints, stable vital signs, no apparent adverse anesthesia problems. No complications reported per nursing. MINERVA THOMAS CRNA Dec 03, 2021 14:02
--- NOTE | 2021-12-03 14:02 | Physical Therapy Daily Note ---
PT Daily Note-Current Subjective Pt laying Supine in bed upon arrival. Pt agrees to PT once HOG DROPPER is able to wake pt up. Pt is very drowsy. Mental Status Patient Orientation: Person, Place Transfers SCALE: Activities may be completed with or without assistive devices. 5-Mpwbmalpfc-qooknxw completes the activity by him/herself with no assistance from a helper. 5-Set-up or Clean-up Assistance-helper sets up or cleans up; patient completes activity. [place] assists only prior to or following the activity. 4-Supervision or Touching Assistance-helper provides verbal cues and/or touching/steadying and/or contact guard assistance as patient completes activity. Assistance may be provided throughout the activity or intermittently. 3-Partial/Moderate Assistance-helper does LESS THAN HALF the effort. [place] lifts, holds or supports trunk or limbs, but provides less than half the effort. 2-Substantial/Maximal Assistance-helper does MORE THAN HALF the effort. [place] lifts or holds trunk or limbs and provides more than half the effort. 0-Frfscybvu-nbfyms does ALL the effort. Patient does none of the effort to complete the activity. Or, the assistance of 2 or more helpers is required for the patient to complete the activity. If activity was not attempted, code reason: 7-Patient Refused. 9-Not Applicable-not attempted and the patient did not perform the activity before the current illness, exacerbation or injury. 10-Not Attempted due to Environmental Limitations-(lack of equipment, weather restraints, etc.). 88-Not Attempted due to Medical Conditions or Safety Concerns. Weight Bearing Right Lower Extremity: Right Full Weight Bearing Left Lower Extremity: Left Full Weight Bearing Exercises Supine Ex: Ankle pumps, Quad Set, Straight leg raise Supine Reps: 10 Treatments Pt completes limited Supine Ex as pt continues to fall asleep. Pt resting at end of tx with all needs met, call light next to pt. Assessment Current Status: Fair Progress Pt was very drowsy and difficult to keep awake during tx. HOG DROPPER completes more like AAROM for EX due to drowsiness. PT Residential Goals Webmethods Architect Goals PT Webmethods Architect Goals Time Frame: Dec 20, 2021 Roll Left & Right (QC): 2 Sit to Lying (QC): 2 Lying-Sitting on Side/Bed(QC): 2 Sit to Stand (QC): 2 PT Plan Problem List Problem List: Activity Tolerance, Functional Strength Treatment/Plan Treatment Plan: Continue Plan of Care Treatment Plan: Bed Mobility, Education, Functional Activity Yue, Functional Strength, Gait, Safety, Therapeutic Exercise, Transfers Treatment Duration: Dec 20, 2021 Frequency: 5 times per week Estimated Hrs Per Day: .25 hour per day Patient and/or Family Agrees t: Yes Time/GCodes Time In: 1315 Time Out: 1330 Total Billed Treatment Time: 15 Total Billed Treatment 1, EX (15m) ERIKA SALES PTA Dec 03, 2021 14:02
[2021-12-03] MEDS ORDERED: KCL 20 MEQ TAB (K-DUR) PO ONE (15:15)
--- NOTE | 2021-12-03 15:21 | Progress Note ---
Subjective Subjective/Events-last exam Patient states that she is doing ok this AM. She is tolerating sitting up alittle bit this AM. Working with PT/OT. Tolerating PO diet. Review of Systems General: Fatigue, Malaise Pulmonary: No Dyspnea, No Cough Cardiovascular: No: Chest Pain, Palpitations, Edema Gastrointestinal: No: Nausea, Vomiting, Abdominal Pain, Diarrhea, Constipation Musculoskeletal: back pain Neurological: Weakness, Incoordination Objective Exam Last Set of Vital Signs Vital Signs Date Time Temp Pulse Resp B/P (MAP) Pulse Ox O2 Delivery O2 Flow Rate FiO2 12/03/21 12:48 37.2 64 14 136/66 (89) 92 Room Air 12/02/21 12:45 1 11/27/21 20:52 21 Capillary Refill : Less Than 3 SecondsLess Than 3 Seconds I&O Intake and Output 12/03/21 00:00 Intake Total 1150 ml Output Total 2075 ml Balance -925 ml Intake Oral 100 ml IV Total 1050 ml Output Urine Total 2075 ml # Bowel Movements 1 General: Alert, Oriented X3, Cooperative, No Acute Distress Lungs: Clear to Auscultation, Normal Air Movement Heart: Regular Rate, No Murmurs Abdomen: Normal Bowel Sounds, Soft, No Tenderness, No Masses Extremities: No Edema, No Tenderness/Swelling Psych/Mental Status: Mental Status NL, Mood NL Results/Procedures Lab Laboratory Tests 12/02/21 17:18: Glucometer 230H 12/02/21 20:42: Glucometer 186H 12/03/21 04:45: White Blood Count 10.1, Red Blood Count 2.82L, Hemoglobin 8.3L, Hematocrit 25L, Mean Corpuscular Volume 89, Mean Corpuscular Hemoglobin 29, Mean Corpuscular Hemoglobin Concent 33, Red Cell Distribution Width 13.5, Platelet Count 264, Mean Platelet Volume 9.5, Immature Granulocyte % (Auto) 1, Neutrophils (%) (Auto) 65, Lymphocytes (%) (Auto) 23, Monocytes (%) (Auto) 6, Eosinophils (%) (Auto) 4, Basophils (%) (Auto) 1, Neutrophils # (Auto) 6.6, Lymphocytes # (Auto) 2.3, Monocytes # (Auto) 0.6, Eosinophils # (Auto) 0.4H, Basophils # (Auto) 0.1, Immature Granulocyte # (Auto) 0.1, Sodium Level 137, Potassium Level 3.5L, Chloride Level 106, Carbon Dioxide Level 21, Anion Gap 10, Blood Urea Nitrogen 14, Creatinine 1.03, Estimat Glomerular Filtration Rate 54, BUN/Creatinine Ratio 14, Glucose Level 212H, Calcium Level 8.4L 12/03/21 05:31: Glucometer 191H 12/03/21 11:55: Glucometer 155H Microbiology 11/27/21 Gram Stain - Final, Complete 11/27/21 Wound Culture - Final, Complete Mixed Bacterial Eileen Staphylococcus aureus 11/25/21 Blood Culture - Final, Complete Staphylococcus epidermidis See Comments Assessment/Plan Assessment/Plan (1) Lytic bone lesions on xray Status: Acute Assessment & Plan: 12/01: Patient in need of surgery with bx of lesion, concerning for malignancy 12/02: Discussed with patient the need for bx and surgery, she would like to know what is going on and would like it worked up, Patient states [facility] she could get [facility], but now she states that it is too far away, will check with Dr Tucker regarding workup. 12/03: Patient will call Ortho and get appt rescheduled, Plan to go back to SNF in AM (2) Sacral wound Status: Acute Assessment & Plan: 12/01: Wound care following 12/02: Debrided today in OR 12/03: Set up wound care appts at the hospital to manage wound after d/c (3) Bilateral pneumonia Status: Resolved Assessment & Plan: 12/01: Doing well on RA, continue antibiotics Qualifiers: Qualified Codes: J18.9 - Pneumonia, unspecified organism (4) Compression fracture of L2 Status: Acute (5) IDDM (insulin dependent diabetes mellitus) Status: Acute Assessment & Plan: 12/01: Labial and brittle DM, will continue to follow blood sugars (6) Iron deficiency anemia due to chronic blood loss Status: Acute (7) HTN (hypertension) Status: Chronic Assessment & Plan: 12/01: Restart home meds (8) Physical debility Status: Acute Assessment & Plan: 12/01: Discussed the importance of PT Clinical Quality Measures Smoking Cessation Counseling: Counseling-Symptomatic: 3-10 Minutes ALEXX ZIMMER MD Dec 03, 2021 15:21
[2021-12-03] MEDS: ENOXAPARIN 40 MG/0.4 ML (LOVENOX) SYR SQ SCH (15:23)
[2021-12-03 16:00] VITALS: BP 159/74
[2021-12-03] MEDS: rOPINIRole 0.25 MG (REQUIP) TAB PO SCH (17:25)
[2021-12-03] MEDS: meTOprolol SUCCINATE 100 MG (TOPROL XL) TAB PO SCH (17:25)
[2021-12-03 19:00] VITALS: BP 176/77
[2021-12-04] VITALS: BP 173/78
[2021-12-04 04:32] VITALS: BP 182/84
[2021-12-04 05:16] LABS: BASOPHILS # (AUTO) 0.1 10^3/uL (0.0-0.1); BASOPHILS % (AUTO) 1 % (0-10); EOSINOPHILS # (AUTO) 0.4 10^3/uL (0.0-0.3); EOSINOPHILS % (AUTO) 4 % (0-10); HEMATOCRIT 25 % (35-52); HEMOGLOBIN 8.3 g/dL (11.5-16.0); LYMPHOCYTES # (AUTO) 1.6 10^3/uL (1.0-4.0); LYMPHOCYTES % (AUTO) 16 % (12-44); MEAN CORPUSCULAR HEMOGLOBIN 30 pg (25-34); MEAN CORPUSCULAR HGB CONC 33 g/dL (32-36); MEAN CORPUSCULAR VOLUME 90 fL (80-99); MEAN PLATELET VOLUME 9.8 fL (9.0-12.2); MONOCYTES # (AUTO) 0.5 10^3/uL (0.0-1.0); MONOCYTES % (AUTO) 5 % (0-12); NEUTROPHILS # (AUTO) 7.4 10^3/uL (1.8-7.8); NEUTROPHILS % (AUTO) 73 % (42-75); PLATELET COUNT 259 10^3/uL (130-400); WHITE BLOOD COUNT 10.1 10^3/uL (4.3-11.0)
[2021-12-04] MEDS: SUCRALFATE 1 GM (CARAFATE) TAB PO SCH ×2 (06:05→12:28)
[2021-12-04] MEDS: PANTOPRAZOLE 40 MG (PROTONIX) TAB PO SCH (06:05)
[2021-12-04] MEDS: inSUlin ASPART (NovoLOG) 1 UNIT/0.01 ML (CHARGE PER UNIT) SC SCH ×2 (06:06→12:28)
[2021-12-04] MEDS: DIVALPROX SPRINKLE 125 MG (DEPAKOTE) CAP PO SCH (06:08)
[2021-12-04] MEDS: polyethylene glycoL POWDER 17 GM (MIRALAX) PACK PO SCH (06:08)
[2021-12-04 06:09] LABS: POTASSIUM 3.8 MMOL/L (3.6-5.0)
[2021-12-04 06:10] LABS: CALCIUM 8.3 MG/DL (8.5-10.1)
[2021-12-04 06:15] LABS: CREATININE SERUM 1.23 MG/DL (0.60-1.30)
[2021-12-04 07:37] VITALS: BP 184/84
--- NOTE | 2021-12-04 07:42 | Progress Note - Surgery ---
CR[facility]Z [employer] MED STUDENT 12/04/21 0742: Subjective Date Seen by a Provider: Dec 04, 2021 Time Seen by a Provider: 07:30 Subjective/Events-last exam Mrs. Urbano is laying in bed this morning. She states that her pain is about the same as it has been in her lower back, but it is not worse today. I did not look at her wound today but nursing has been doing regular dressing changes and did not have any concerns about it. She has been eating and drinking with no nausea or vomiting. Her catheter is out, she states she has been doing prett well about staying dry. No problems with BMs. She did PT yesterday. She should be leaving to SNF this morning. Review of Systems General: No Chills HEENT: No Head Aches, No Visual Changes Pulmonary: No Dyspnea, No Cough Cardiovascular: No: Chest Pain, Palpitations, Edema Gastrointestinal: No: Nausea, Vomiting, Abdominal Pain, Diarrhea, Constipation, Melena Genitourinary: No Dysuria, No Incontinence, No Hematuria Musculoskeletal: back pain (lumbar and sacral); No: leg pain, foot pain Objective Exam Vital Signs Date Time Temp Pulse Resp B/P (MAP) Pulse Ox O2 Delivery O2 Flow Rate FiO2 12/04/21 04:32 37.6 74 19 182/84 (116) 92 Room Air 12/04/21 00:00 37.8 71 18 173/78 (109) 94 Room Air 12/03/21 20:45 95 Room Air 12/03/21 19:00 36.8 65 18 176/77 (110) 95 Room Air 12/03/21 16:00 36.6 66 18 159/74 (102) 94 Room Air 12/03/21 12:48 37.2 64 14 136/66 (89) 92 Room Air 12/03/21 08:55 36.6 62 16 167/74 (105) 98 Room Air 12/03/21 08:00 Room Air I & O 12/04/21 07:00 Intake Total 1037 ml Output Total 2080 ml Balance -1043 ml Capillary Refill : Less Than 3 SecondsLess Than 3 Seconds General Appearance: No Apparent Distress, Chronically ill, Other (Has pillow propped under her to help her stay off her sacrum) HEENT: Pharynx Normal, Moist Mucous Membranes Neck: Non Tender Respiratory: Chest Non Tender, Lungs Clear, Normal Breath Sounds, No Accessory Muscle Use, No Respiratory Distress Cardiovascular: Regular Rate, Rhythm, No Edema, No Murmur, Normal Peripheral Pulses Peripheral Pulses: 2+ Dorsalis Pedis (R), 2+ Left Dors-Pedis (L), 2+ Radial Pulses (R), 2+ Radial Pulses (L) Gastrointestinal: normal bowel sounds, non tender, soft Extremity: Normal Inspection, Non Tender, No Calf Tenderness, No Pedal Edema Neurologic/Psychiatric: Alert, Oriented x3 Skin: Normal Color, Warm/Dry, Other (Stage 4 Decub ulcer, is dressed with no material seeping through. Dry) Results Lab Laboratory Tests 12/03/21 11:55: Glucometer 155H 12/03/21 16:21: Glucometer 195H 12/03/21 20:59: Glucometer 202H 12/04/21 04:55: White Blood Count 10.1, Red Blood Count 2.79L, Hemoglobin 8.3L, Hematocrit 25L, Mean Corpuscular Volume 90, Mean Corpuscular Hemoglobin 30, Mean Corpuscular Hemoglobin Concent 33, Red Cell Distribution Width 13.4, Platelet Count 259, Mean Platelet Volume 9.8, Immature Granulocyte % (Auto) 1, Neutrophils (%) (Auto) 73, Lymphocytes (%) (Auto) 16, Monocytes (%) (Auto) 5, Eosinophils (%) (Auto) 4, Basophils (%) (Auto) 1, Neutrophils # (Auto) 7.4, Lymphocytes # (Auto) 1.6, Monocytes # (Auto) 0.5, Eosinophils # (Auto) 0.4H, Basophils # (Auto) 0.1, Immature Granulocyte # (Auto) 0.1, Sodium Level 138, Potassium Level 3.8, Chloride Level 105, Carbon Dioxide Level 21, Anion Gap 12, Blood Urea Nitrogen 17, Creatinine 1.23, Estimat Glomerular Filtration Rate 44, BUN/Creatinine Ratio 14, Glucose Level 235H, Calcium Level 8.3L 12/04/21 05:24: Glucometer 232H Microbiology 11/27/21 Gram Stain - Final, Complete 11/27/21 Wound Culture - Final, Complete Mixed Bacterial Eileen Staphylococcus aureus 11/25/21 Blood Culture - Final, Complete Staphylococcus epidermidis See Comments Assessment/Plan Assessment/Plan Assessment/Plan Bilateral pneumonia S/P debreidment of Stage IV decubitus ulcer (Day 2) Hypoglycemia HypoKalemia Anemia Pt is still doing well, pain is about the same, not worse. She does have pain medication. Wound is still healing, she has been getting regular dressing changes, repositioned in bed, and doing PT. She should be going to SNF today which will also help make sure she gets off her back and heals well. Encouraged her to make sure to not just lay on her back or the wound will get worse and she likely will be back in the hospital again. Clinical Quality Measures Smoking Cessation Counseling: Counseling-Symptomatic: 3-10 Minutes WALLACE VILLEGAS DO 12/04/21 1346: Subjective Time Seen by a Provider: 12:36 Subjective/Events-last exam Pt seen and examined, being rolled; unfortunately was very painful for pt. Review of Systems General: No Chills Pulmonary: No Dyspnea, No Cough Cardiovascular: No: Chest Pain, Palpitations Gastrointestinal: No: Nausea, Vomiting, Abdominal Pain Musculoskeletal: back pain (lumbar and sacral) Objective Exam General Appearance: Chronically ill, Other (Has pillow propped under her to help her stay off her sacrum) HEENT: Moist Mucous Membranes Respiratory: Lungs Clear, Normal Breath Sounds, No Accessory Muscle Use, No Respiratory Distress Cardiovascular: Regular Rate, Rhythm, No Murmur Gastrointestinal: non tender, soft Skin: Other (Stage 4 Decub ulcer, is dressed with no material seeping through. Dry) Assessment/Plan Assessment/Plan Assessment/Plan Bilateral pneumonia S/P debreidment of Stage IV decubitus ulcer (Day 2) Hypoglycemia HypoKalemia Anemia Pt is still doing well, pain is about the same, not worse. She does have pain medication. Wound is still healing, she has been getting regular dressing changes, repositioned in bed, and doing PT. She should be going to SNF today which will also help make sure she gets off her back and heals well. Encouraged her to make sure to not just lay on her back or the wound will get worse and she likely will be back in the hospital again. Supervisory-Addendum Brief Verification & Attestation Participated in pt care: history, MDM, physical Personally performed: exam, history, MDM, supervision of care Care discussed with: Medical Student Procedures: n/a Verification and Attestation of Medical Student E/M Service A medical student performed and documented this service. I then reviewed and verified all information documented by the medical student and made modifications to such information, when appropriate. I personally performed a physical exam, medical decision making and then discussed any differences between the notes and made revisions as necessary to create one note. Wallace Villegas , 12/04/21 , 13:46 [facility] [employer] STUDENT Dec 04, 2021 07:42 WALLACE VILLGEAS DO Dec 04, 2021 13:46
[2021-12-04] MEDS: GABAPENTIN 400 MG (NEURONTIN) CAP PO SCH (08:41)
[2021-12-04] MEDS: amLODIPine 10 MG (NORVASC) TAB PO SCH (08:41)
[2021-12-04] MEDS: SENNA W/DOCUSATE (SENOKOT S) TABLET PO SCH (08:42)
[2021-12-04] MEDS: COLLAGENASE 30 GM (SANTYL) TUBE TP SCH (09:07)
--- NOTE | 2021-12-04 09:39 | Discharge Summary ---
Discharge Summary Reconcile Patient Problems Problems Reviewed?: Yes Hospital Course Hospital Course Date of Admission: Nov 25, 2021 at 14:57 Admission Diagnosis : [facility] Date of Discharge: 12/03/21 Discharge Diagnosis: Lytic Bone Lesion concerning for malignancy Lumbar Compression fracture Bilateral PNA IDDM HTN Debility Hospital Course: [ ] Labs and Pending Lab Test: Laboratory Tests 12/02/21 17:18: Glucometer 230H 12/02/21 20:42: Glucometer 186H 12/03/21 04:45: White Blood Count 10.1, Red Blood Count 2.82L, Hemoglobin 8.3L, Hematocrit 25L, Mean Corpuscular Volume 89, Mean Corpuscular Hemoglobin 29, Mean Corpuscular Hemoglobin Concent 33, Red Cell Distribution Width 13.5, Platelet Count 264, Mean Platelet Volume 9.5, Immature Granulocyte % (Auto) 1, Neutrophils (%) (Auto) 65, Lymphocytes (%) (Auto) 23, Monocytes (%) (Auto) 6, Eosinophils (%) (Auto) 4, Basophils (%) (Auto) 1, Neutrophils # (Auto) 6.6, Lymphocytes # (Auto) 2.3, Monocytes # (Auto) 0.6, Eosinophils # (Auto) 0.4H, Basophils # (Auto) 0.1, Immature Granulocyte # (Auto) 0.1, Sodium Level 137, Potassium Level 3.5L, Chloride Level 106, Carbon Dioxide Level 21, Anion Gap 10, Blood Urea Nitrogen 14, Creatinine 1.03, Estimat Glomerular Filtration Rate 54, BUN/Creatinine Ratio 14, Glucose Level 212H, Calcium Level 8.4L 12/03/21 05:31: Glucometer 191H 12/03/21 11:55: Glucometer 155H Microbiology 11/27/21 Gram Stain - Final, Complete 11/27/21 Wound Culture - Final, Complete Mixed Bacterial Eileen Staphylococcus aureus 11/25/21 Blood Culture - Final, Complete Staphylococcus epidermidis See Comments Home Meds Active Reported Promethazine Tablet (Promethazine HCl) 25 Mg Tablet 25 Mg PO Q12H PRN Oxycodone HCl 5 Mg Tablet 20 Mg PO Q4H PRN TAKES 4 (5MG) TABS Ibuprofen 400 Mg Tablet 400 Mg PO Q6H PRN Docusate Sodium 100 Mg Capsule 100 Mg PO Q12H PRN Novolog Flexpen (Insulin Aspart) 300 Units/3 Ml Solution Units SQ AC USE THE FOLLOWING SLIDING SCALE: 150-180= 11 UNITS 181-210= 12 UNITS 211-240= 13 UNITS 241-270= 14 UNITS 271-300= 15 UNITS 301-330= 16 UNITS 331-360= 17 UNITS 361-400= 18 UNITS 401-430= 19 UNITS 431-460= 20 UNITS 461-490= 21 UNITS 491-520= 22 UNITS OVER 520 CALL PCP FOR FURTHER ORDERS Tresiba Flextouch U-100 (Insulin Degludec) 100 Unit/1 Ml Insuln.pen 30 Unit SQ DAILY Carafate (Sucralfate) 1 Gm Tablet 1 Gm PO ACHS Cephalexin 500 Mg Capsule 500 Mg PO 0600,1000,1400 #21/ DAY SUPPLY- FIRST DOSE 11-24-2020 @1400 LAST DOSE DUE 12-01-2020 @1000 Pantoprazole Sodium 40 Mg Tablet. 40 Mg PO 0600,1400 Miralax (Polyethylene Glycol 3350) 17 Gm Powd.pack 17 Gm PO 0600,1800 Depakote (Divalproex Sodium) 125 Mg Tablet. 125 Mg PO 0600,1800 Senna-S Tablet (Sennosides/Docusate Sodium) 1 Each Tablet 1 Each PO DAILY Ropinirole HCl 0.5 Mg Tablet 0.5 Mg PO 1800 Metoprolol Succinate 100 Mg Tab.er.24h 100 Mg PO 1800 HOLD AND NOTIFY NURSE/PCP IF BP <80/50 OR >180/110 AND PULSE <50 OR >110 Lisinopril 20 Mg Tablet 20 Mg PO 1000 HOLD AND NOTIFY NURSE/PCP IF BP <80/50 OR >180/110 AND PULSE <50 OR >110 Gabapentin 800 Mg Tablet 800 Mg PO DAILY Gabapentin 800 Mg Tablet 1,600 Mg PO HS TAKES 2 (800MG) TABS Atorvastatin Calcium 40 Mg Tablet 40 Mg PO 1800 Amlodipine Besylate 10 Mg Tablet 10 Mg PO DAILY HOLD AND NOTIFY NURSE/PCP IF BP <80/50 OR >180/110 AND PULSE <50 OR >110 Skilled NF Admit to: [facility] and Rehab Certification (SNF) I certify that SNF services are required to be given on an inpatient basis because of the above named patient's need for fci care on a continuing basis for the conditions(s) for which he/she was receiving inpatient hospital services prior to his/her transfer to the SNF. Group Home Facility Order: Nursing Services, Manager Surgical-Evaluate & Treat, Physical Therapy-Evaluate & Treat Oxygen Delivery Method: Room Air Discharge Diet: ADA Diet Daily Activity as Tolerated: Yes Alexx Rico Dec 03, 2021 15:27 Discharge Physical Exam General: Alert, Oriented X3, No Acute Distress Lungs: Clear to Auscultation, Normal Air Movement Heart: Regular Rate, No Murmurs Abdomen: Normal Bowel Sounds, Soft, No Tenderness, No Masses Extremities: No Edema, No Tenderness/Swelling Neuro: Normal Speech Psych/Mental Status: Mental Status NL, Mood NL ALEXX RICO MD Dec 03, 2021 15:27
[2021-12-04] MEDS ORDERED: LISI20TA26 PO (09:43)
[2021-12-04] MEDS ORDERED: FENT1PAT8 TD (09:43)
[2021-12-04] MEDS ORDERED: OXYC20TA3 PO (09:43)
[2021-12-04] MEDS: lisINopril 20 MG (PRINIVIL) TABLET PO SCH (09:47)
--- NOTE | 2021-12-04 10:06 | Physical Therapy Progress Note ---
Therapy Progress Note Patient adamantly declined PT due to pain total body. RN present. 1 ref KELVIN CALVO PT Dec 04, 2021 10:06
--- NOTE | 2021-12-04 11:31 | Occ Therapy Progress Note ---
Therapy Progress Note Pt in bed, eyes closed. OT introduced self to pt but she did not respond. OT provided tactile cues and pt able to open eyes to look at therapist, then would close her eyes. OT asked how pt was, she replied "hurt". Pt would not provide pain rating, and refused to work with OT at this time. OT will attempt again next available time. 1, refusal [id number] VERNELL FERRER OT Dec 04, 2021 11:31
[2021-12-04 12:32] VITALS: BP 162/75
--- NOTE | 2021-12-07 23:58 | Physician Query Clarification ---
PQ-Debridement Admission/Discharge Admission Date: Nov 25, 2021 at 14:57 Discharge Date: Dec 04, 2021 at 14:30 ORI Azevedo DO PHYSICIAN RESPONSE History & risk factors: 61 y/o female patient admitted with bilateral pneumonia and sacral decubetus ulcers treated with antibiotics and debridement of ulcer. Operative report/procedure note reflects the following description: I started cutting off the necrotic tissue with Bovie electrocautery going through the skin to fresh tissue and then down through the skin into the subcutaneous fat and then down through this to the muscle and fascia down to the bone of the sacrum measured about 4 cm long x about 3.5 cm in the superior caudad cephalad direction and about 2 cm deep, took off all the necrotic tissue, passed this off table and sent to pathology, cut back and debrided until we got to some fresh bleeding tissue. Bleeding was controlled with Bovie electrocautery. QUESTION: Please clarify the depth of the debridement. Please clarify if the debridement was excisional or non-excisional. Please document a response in the Progress Notes or Discharge Summary. 1. Level: Skin Subcutaneous tissue Fascia Muscle Bone 2. Type of debridement: Excisional Non-excisional 3. Other, with explanation of the clinical findings 4. Clinically unable to determine PQ Debridement : Date of debridement: Dec 02, 2021 Level: Bone (this is mentioned in op report) Type: Excisional (done with cautery) Please remember a lack of response to the above will prompt a phone page by CDI/Coding staff. In responding to this query, please exercise your independent professional judgment. The purpose of this communication is to more accurately reflect the complexity of your patients condition. The fact that a question is asked does not imply that any particular answer is desired or expected. Thank you for your timely response to this clarification. Requestors name: [ ] Phone # [ ] THIS PHYSICIAN QUERY FORM IS A PERMANENT PART OF THE MEDICAL RECORD CESILIA CATES Dec 07, 2021 23:58 ORI AYON DO Dec 21, 2021 14:33
== END 2021-12-04 14:30 | DRG 981 ==
LOC: ER 08:03 → 4TH 14:57
PROVIDERS: ADMIT Family Medicine; ATTEND Family Medicine
PROC: 0QB10ZZ Excision of Sacrum, Open Approach (ICD-10-PCS; principal; 2021-12-02 11:35)
DX: J18.9 Pneumonia, unspecified organism (principal); L89.154 Pressure ulcer of sacral region, stage 4; S32.029A Unspecified fracture of second lumbar vertebra, initial encounter for closed fracture; M46.28 Osteomyelitis of vertebra, sacral and sacrococcygeal region; K21.9 Gastro-esophageal reflux disease without esophagitis; G40.909 Epilepsy, unspecified, not intractable, without status epilepticus; R11.2 Nausea with vomiting, unspecified; E78.5 Hyperlipidemia, unspecified; G25.81 Restless legs syndrome; G89.29 Other chronic pain; K59.00 Constipation, unspecified; E10.22 Type 1 diabetes mellitus with diabetic chronic kidney disease; I12.9 Hypertensive chronic kidney disease with stage 1 through stage 4 chronic kidney disease, or unspecified chronic kidney disease; N18.9 Chronic kidney disease, unspecified; K58.9 Irritable bowel syndrome, unspecified; M79.7 Fibromyalgia; L40.9 Psoriasis, unspecified; M54.9 Dorsalgia, unspecified; Z20.822 Contact with and (suspected) exposure to COVID-19; M54.2 Cervicalgia; F41.9 Anxiety disorder, unspecified; K57.90 Diverticulosis of intestine, part unspecified, without perforation or abscess without bleeding; Z95.5 Presence of coronary angioplasty implant and graft; E10.40 Type 1 diabetes mellitus with diabetic neuropathy, unspecified; H35.30 Unspecified macular degeneration; F17.210 Nicotine dependence, cigarettes, uncomplicated; D50.0 Iron deficiency anemia secondary to blood loss (chronic); R53.81 Other malaise; M89.50 Osteolysis, unspecified site; E10.649 Type 1 diabetes mellitus with hypoglycemia without coma
CPT/HCPCS: 36415; 51701; 71045; 72158; 72192; 72197; 80048; 80053; 80202; 81000; 82947; 83605; 85007; 85025; 85027; 85610; 85652; 85730; 86141; 87040; 87070; 87077; 87186; 87205; 87635; 87636; 87804; 88304; 94664; 94760; 96361; 96365

== ENCOUNTER → 2022-01-12 | Outpatient (CLI) | payer MEDICARE ==
[~2022-01-12] MED LIST changes: +ACET-2267 PO; +BACL10TA PO; +CHOL4PAC3 PO; +DIVA125T2 PO; +FENT1PAT8 TD; +IBUP-1779 PO; +INSU100I32 SQ; +LISI40TA9 PO; +MICO90PO TOP; +MORP-68 PO; +OXYC5TAB PO; +POLY17PO6 PO; +ROPI0.5T4 PO; +SENN-109 PO; +SENN-234 PO
== END ==
LOC: WOUNDCARE 14:31
PROVIDERS: ATTEND Family Medicine
DX: E11.52 Type 2 diabetes mellitus with diabetic peripheral angiopathy with gangrene (principal); E11.622 Type 2 diabetes mellitus with other skin ulcer; I96 Gangrene, not elsewhere classified; L89.154 Pressure ulcer of sacral region, stage 4; M46.28 Osteomyelitis of vertebra, sacral and sacrococcygeal region; F11.10 Opioid abuse, uncomplicated; E44.0 Moderate protein-calorie malnutrition; T65.222A Toxic effect of tobacco cigarettes, intentional self-harm, initial encounter
CPT/HCPCS: 11043; 11046; 87070; 87077; 87205; 97605

== ENCOUNTER → 2022-01-21 | Outpatient (CLI) | payer MEDICARE ==
[~2022-01-21] MED LIST changes: +FLUC100T10 PO; -FLUC100T6 PO
== END ==
LOC: WOUNDCARE 15:43
PROVIDERS: ATTEND Family Medicine
DX: L89.154 Pressure ulcer of sacral region, stage 4 (principal); M46.28 Osteomyelitis of vertebra, sacral and sacrococcygeal region; E11.622 Type 2 diabetes mellitus with other skin ulcer; E44.0 Moderate protein-calorie malnutrition; T65.222A Toxic effect of tobacco cigarettes, intentional self-harm, initial encounter; L97.128 Non-pressure chronic ulcer of left thigh with other specified severity; E11.52 Type 2 diabetes mellitus with diabetic peripheral angiopathy with gangrene; F11.10 Opioid abuse, uncomplicated
CPT/HCPCS: 11042; 11045; 97605; G0463

== ENCOUNTER 2022-01-22 14:19 | Observation (INO) | payer MEDICARE ==
[~2022-01-22] VITALS: Ht 152.4 cm; Wt 47.6 kg
--- NOTE | 2022-01-22 14:43 | ED General ---
General Chief Complaint: Glucose Problems Stated Complaint: HIGH BS Source of Information: Patient, EMS, Old Records, RN/MD Exam Limitations: No Limitations History of Present Illness Date Seen by Provider: Jan 22, 2022 Time Seen by Provider: 14:10 Initial Comments Patient to the ER by EMS from home with chief complaint that she had some blood tests showing that her kidney function was down. She is in wound care with Dr. Min for a large nonhealing sacral wound and a wound VAC in place. She also has some wounds on the back of her leg. Dr. Min expressed to her that she needed to go back in the halfway to get better control of her wound care because she does not think is appropriate for outpatient. Patient states she does not want to go back to the halfway. Patient's not having any fevers chills nausea or vomiting. No pain in her back or legs. No dysuria. No decreased urine output. She noted her blood sugar to be 400 earlier and gave her self 10 units subcutaneous insulin at lunchtime and EMS noted her blood sugar to read high with ketones on their glucometer. Patient is a brittle diabetic with frequent UTI and DKA. Allergies and Home Medications Allergies Coded Allergies: ketorolac (Verified Allergy, Severe, ANAPHYLAXIS, PT TAKES ASA AT HOME, 03/06/19) scopolamine (Verified Allergy, Mild, Rash, 03/21/19) exenatide (Verified Allergy, Unknown, NAUSEA, 03/06/19) NON STOP VOMITING latex (Verified Allergy, Unknown, RASH, 03/06/19) metoclopramide (Verified Allergy, Unknown, RESTLESS LEGS, 03/06/19) erythromycin base (Verified Adverse Reaction, Unknown, 03/21/19) Patient Home Medication List Home Medication List Reviewed: Yes Acetaminophen (Tylenol Extra Strength) 500 Mg Tablet, 1,000 MG PO Q6H PRN for PAIN-MILD (1-4) Prescribed by: WINDY MANN on 12/28/21 185 Amlodipine Besylate (Amlodipine Besylate) 10 Mg Tablet, 10 MG PO DAILY, (Reported) Entered as Reported by: NAEL ABDI on 11/25/21 165 Atorvastatin Calcium (Atorvastatin Calcium) 40 Mg Tablet, 40 MG PO HS, (Reported) Entered as Reported by: NAEL ABDI on 11/25/211658 Baclofen (Baclofen) 10 Mg Tablet, 10 MG PO BID PRN for PAIN-BREAKTHROUGH, (Reported) Entered as Reported by: NAEL ABDI on 12/29/21 114 Cefdinir (Cefdinir) 300 Mg Capsule, 300 MG PO BID Prescribed by: AZEEM MELVIN on 01/08/22 113 Cholestyramine/Aspartame (Prevalite Packet) 4 Gm Powd.pack, 4 GM PO BID Prescribed by: AZEEM MELVIN on 01/08/22 113 Divalproex Sodium (Depakote) 125 Mg Tablet.dr, 125 MG PO BID, (Reported) Entered as Reported by: NAEL ABDI on 11/25/21 165 Docusate Sodium (Docusate Sodium) 100 Mg Capsule, 100 MG PO Q12H PRN for CONSTIPATION-1ST LINE, (Reported) Entered as Reported by: NAEL ABDI on 11/25/211658 Fluconazole (Fluconazole) 100 Mg Tablet, 100 MG PO DAILY Prescribed by: AZEEM MELVIN on 01/08/221134 Gabapentin (Gabapentin) 800 Mg Tablet, 1,600 MG PO HS, (Reported) Entered as Reported by: NAEL ABDI on 11/25/211658 Gabapentin (Gabapentin) 800 Mg Tablet, 800 MG PO DAILY, (Reported) Entered as Reported by: NAEL ABDI on 11/25/211658 Insulin Aspart (Novolog Flexpen) 300 Units/3 Ml Solution, UNITS SQ AC, (Rep orted) Entered as Reported by: NAEL ABDI on 11/25/211658 Insulin Degludec (Tresiba Flextouch U-100) 100 Unit/1 Ml Insuln.pen, 30 UNIT SQ DAILY, (Reported) Entered as Reported by: NAEL ABDI on 11/25/211658 Lisinopril (Lisinopril) 40 Mg Tablet, 40 MG PO 1000, (Reported) Entered as Reported by: NAEL ABDI on 12/29/21 114 Metoprolol Succinate (Metoprolol Succinate) 100 Mg Tab.er.24h, 100 MG PO HS, (R eported) Entered as Reported by: NAEL ABDI on 11/25/211658 Miconazole Nitrate (Lotrimin AF) 90 Gm Powder, 0 GM TOP BID Prescribed by: AZEEM MELVIN on 01/08/22 1135 Morphine Sulfate (Morphine Sulfate ER) 15 Mg Tablet.er, 15 MG PO Q12HR Prescribed by: AZEEM MELVIN on 01/08/22 1135 Oxycodone HCl (Oxycodone HCl) 20 Mg Tablet, 20 MG PO Q6H PRN for PAIN-SEVERE (8- 10) Prescribed by: AZEEM MELVIN on 01/08/22 1135 Pantoprazole Sodium (Pantoprazole Sodium) 40 Mg Tablet.dr, 40 MG PO BID, (Reported) Entered as Reported by: NAEL ABDI on 11/25/21 165 Polyethylene Glycol 3350 (Miralax) 17 Gm Powd.pack, 17 GM PO BID, (Reported) Entered as Reported by: NAEL ABDI on 11/25/211658 Promethazine HCl (Promethazine Tablet) 25 Mg Tablet, 25 MG PO Q12H PRN for NAUSEA/VOMITING-2ND LINE, (Reported) Entered as Reported by: NAEL ABDI on 11/25/21 165 Ropinirole HCl (Ropinirole HCl) 0.5 Mg Tablet, 0.5 MG PO HS, (Reported) Entered as Reported by: NAEL ABDI on 11/25/21 165 Sennosides (Senna) 8.6 Mg Tablet, 8.6 MG PO DAILY, (Reported) Entered as Reported by: NAEL ABDI on 12/29/21 114 Sucralfate (Carafate) 1 Gm Tablet, 1 GM PO ACHS, (Reported) Entered as Reported by: NAEL ABDI on 11/25/211658 Review of Systems Review of Systems Constitutional: No chills, No diaphoresis EENTM: No ear discharge, No ear pain Respiratory: No cough, No short of breath Cardiovascular: No edema, No palpitations Gastrointestinal: No abdominal pain, No nausea, No vomiting Genitourinary: No discharge, No dysuria Musculoskeletal: No back pain, No joint pain Skin: No pruritus, No rash Psychiatric/Neurological: Denies Anxiety, Denies Depressed All Other Systems Reviewed Negative Unless Noted: Yes Past Ltezvid-Zfyazw-Fmhivy Hx Patient Social History Tobacco Use?: No Use of E-Cig and/or Vaping dev: No Substance use?: No Immunizations Up To Date Tetanus Booster (TDap): Unknown PED Vaccines UTD: No First/Initial COVID19 Vaccinat: January COVID19 Vaccination Sharif: February COVID19 Vaccination Date: JANUARY Seasonal Allergies Seasonal Allergies: Yes Past Medical History Surgery/Hospitalization HX: NON-COMPLIANT DM, CVA, SEIZURES, HTN, CARDIAC STENTS, DVT, FIBROMYALGIA, IBS, LAMINECTOMY, SUBSTANCE ABUSE. 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 Disorders: Denies K9 HAND[employer]ER History: Menopausal Sexually Transmitted Disease: No HIV/AIDS: No Genitourinary: Yes Renal Failure Gastrointestinal: Yes Gastroesophageal Reflux, Gastrointestinal Bleed Musculoskeletal: Yes Degenerate Disk Disease, Arthritis, Chronic Back Pain Endocrine: Yes Diabetes, Non-Insulin dep HEENT: Yes Macular Degeneration Loss of Vision: Bilateral Hearing Impairment: Hard of Hearing Cancer: Yes Psychosocial: Yes Anxiety Integumentary: Yes Psoriasis Blood Disorders: No Adverse Reaction/Blood Tranf: No Family Medical History Cancer of mouth 19 FATHER ( of esophogeal cancer.) Cardiovascular disease 19 MOTHER G8 BROTHER Completed stroke 19 FATHER G8 BROTHER Diabetes mellitus G8 BROTHER FH: lung cancer 19 MOTHER Hypertension 19 FATHER Kidney disease 19 FATHER Myocardial infarction 19 MOTHER G8 BROTHER Respiratory disorder No Family History of: AIDS Cancer, Diabetes, Hypertension SOCIAL HISTORY: -ETOH--RARELY USES -DRUGS--Rx NARCOTIC ABUSE -SMOKES 1 PPD PSH: -LINQ DEVICE PLACED 11/09/19 FOR REPORTED PALPITATIONS X 6 MONTHS, SINCE PERCOCET WAS DC'D -MULTIPLE CARDIAC CATHS--STENT X 1 TO LAD 07/13/15. LAST CATH 01/18/19--NO INTERVENTION -LUMBAR SPINE FUSION X 3--12/2002, 04/2007, AND 05/2007 -LUMBAR DISCECTOMY 10/2000--? LAMINECTOMY? -CERVICAL SPINE FUSION 11/2006 -CHOLECYSTECTOMY 1984 -BMT'S -LITHOTRIPSY AND RIGHT URETERAL STENT -EGD'S WITH ESOPHAGEAL DILATIONS -COLONOSCOPIES, LAST ONE 03/08/19 -PORT RIGHT CHEST -LEFT SHOULDER ROTATOR CUFF REPAIR 05/01/20--DR. PALACIOS -CONTINUOUS GLUCOSE MONITOR PRESENT 06/25/20--LLQ OF ABDOMEN--NOT PRESENT 10/2020 -BILATERAL CATARACT SURGERY 10/2020 -PERIPHERAL ANGIOGRAM 05/02/[address] FELIX: SEVERE BILATERAL SUPERFICIAL FEMORAL ARTERY DISEASE AND RECOMMENDED BILATERAL FEMORAL-POPLITEAL SURGERY--REFERRED TO DR. SAWYER AT [facility] HISTORY OF EXTREME NON-COMPLIANCE IN ALL ASPECTS OF CARE Physical Exam Vital Signs Vital Signs - First Documented 01/22/22 14:34 Temp 36.2 Pulse 66 Resp 17 B/P (MAP) 154/59 (90) Pulse Ox 96 O2 Delivery Room Air Capillary Refill : Height, Weight, BMI Height: 5'1.00" Weight: 122lbs. 1.0oz. 55.837277ux; 22.60 BMI Method:Estimated General Appearance: No Apparent Distress, WD/WN Eyes: Bilateral Eye Normal Inspection, Bilateral Eye PERRL, Bilateral Eye EOMI HEENT: PERRL/EOMI, Pharynx Normal, Moist Mucous Membranes Neck: Full Range of Motion, Normal Inspection, Non Tender Respiratory: Lungs Clear, Normal Breath Sounds, No Accessory Muscle Use, No Respiratory Distress Cardiovascular: Regular Rate, Rhythm, No Edema, Normal Peripheral Pulses Gastrointestinal: Normal Bowel Sounds, Non Tender, Soft Extremity: Normal Capillary Refill, Normal Inspection, No Pedal Edema Neurologic/Psychiatric: Alert, Oriented x3 Skin: Other (Irregular wounds on her back of her legs with good eschar base and light murray pink edges no induration or drainage. Wound VAC over the sacrum is i ntact, sucked down and the wound edges are normal skin color without any erythema induration or fluctuance palpable. There is a small amount of drainage in the wound VAC capture tank's unremarkable.) Procedures/Interventions Date of ETT Placement: Dec 28, 2021 Time of ETT Placement: 1107 Progress/Results/Core Measures Suspected Sepsis SIRS Temperature: Pulse: Respiratory Rate: Laboratory Tests 01/22/22 14:30: White Blood Count 11.5H Blood Pressure / Mean: Laboratory Tests 01/22/22 14:30: Creatinine 2.08H, Platelet Count 374, Total Bilirubin 0.1 Results/Orders Lab Results Laboratory Tests Test 01/22/22 14:30 01/22/22 14:43 01/22/22 17:41 Range/Units White Blood Count 11.5 H 4.3-11.0 10^3/uL Red Blood Count 2.99 L 3.80-5.11 10^6/uL Hemoglobin 8.9 L 11.5-16.0 g/dL Hematocrit 28 L 35-52 % Mean Corpuscular Volume 93 80-99 fL Mean Corpuscular Hemoglobin 30 25-34 pg Mean Corpuscular Hemoglobin Concent 32 32-36 g/dL Red Cell Distribution Width 17.4 H 10.0-14.5 % Platelet Count 374 130-400 10^3/uL Mean Platelet Volume 9.8 9.0-12.2 fL Immature Granulocyte % (Auto) 1 % Neutrophils (%) (Auto) 62 42-75 % Lymphocytes (%) (Auto) 27 12-44 % Monocytes (%) (Auto) 4 0-12 % Eosinophils (%) (Auto) 5 0-10 % Basophils (%) (Auto) 1 0-10 % Neutrophils # (Auto) 7.2 1.8-7.8 10^3/uL Lymphocytes # (Auto) 3.1 1.0-4.0 10^3/uL Monocytes # (Auto) 0.5 0.0-1.0 10^3/uL Eosinophils # (Auto) 0.6 H 0.0-0.3 10^3/uL Basophils # (Auto) 0.1 0.0-0.1 10^3/uL Immature Granulocyte # (Auto) 0.1 0.0-0.1 10^3/uL Sodium Level 131 L 135-145 MMOL/L Potassium Level 4.6 3.6-5.0 MMOL/L Chloride Level 107 98-107 MMOL/L Carbon Dioxide Level 12 L 21-32 MMOL/L Anion Gap 12 5-14 MMOL/L Blood Urea Nitrogen 41 H 7-18 MG/DL Creatinine 2.08 H 0.60-1.30 MG/DL Estimat Glomerular Filtration Rate 26 BUN/Creatinine Ratio 20 Glucose Level 447 *H 70-105 MG/DL Calcium Level 8.0 L 8.5-10.1 MG/DL Corrected Calcium 9.0 8.5-10.1 MG/DL Total Bilirubin 0.1 0.1-1.0 MG/DL Aspartate Amino Transf (AST/SGOT) 34 5-34 U/L Alanine Aminotransferase (ALT/SGPT) 23 0-55 U/L Alkaline Phosphatase 66 40-136 U/L C-Reactive Protein High Sensitivity 3.84 H 0.00-0.50 MG/DL Total Protein 6.9 6.4-8.2 GM/DL Albumin 2.7 L 3.2-4.5 GM/DL Beta-Hydroxybutyrate (Chem panel) 0.13 0.00-0.27 MMOL/L Glucometer 376 H 293 H 70-110 MG/DL My Orders Orders - LATANYA HOLLINGSWORTH Cbc With Automated Diff (01/22/22 14:34) Comprehensive Metabolic Panel (01/22/22 14:34) Accucheck Stat ONCE (01/22/22 14:34) Hs C Reactive Protein (01/22/22 14:34) Ua Culture If Indicated (01/22/22 14:34) Insulin (Regular) Human (Novolin R (Per (01/22/22 14:45) Beta Hydroxybutyrate (01/22/22 14:34) Ed Iv/Invasive Line Start (01/22/22 14:34) Ns Iv 1000 Ml (Sodium Chloride 0.9%) (01/22/22 14:45) Insulin (Regular) Human (Novolin R (Per (01/22/22 14:45) General/Regular (01/22/22 Dinner) Oxycodone/Apap 5/325mg Tablet (Percocet (01/22/22 16:00) Accucheck Stat ONCE (01/22/22 17:36) Medications Given in ED Current Medications Medications Dose Ordered Sig/Jackie Route Start Time Stop Time Status Last Admin Dose Admin Insulin Human Regular 5 unit ONCE ONCE SC 01/22/22 14:45 01/22/22 14:47 DC 01/22/22 15:01 5 UNIT Oxycodone/ Acetaminophen 2 tab ONCE ONCE PO 01/22/22 16:00 01/22/22 16:01 DC 01/22/22 16:12 2 TAB Vital Signs/I&O 01/22/22 14:34 Temp 36.2 Pulse 66 Resp 17 B/P (MAP) 154/59 (90) Pulse Ox 96 O2 Delivery Room Air Capillary Refill : Progress Note #1: Time: 14:43 Progress Note 376 blood glucose on her Accu-Chek so were going to give her 4 units of regular insulin subcutaneous. We will repeat some labs give her a liter of fluids and check urine for ketones. Patient is pleasant and not complaining of any pain or discomfort. She is adamant she does not want to go back to the halfway. She has entertained thoughts of going on hospice. Progress Note #2: Time: 16:05 Progress Note Per patient's request hospice company came by and talk to her. He feels she is still not ready to elect hospice. She says she is having some pain and usually takes 20 mg OxyContin. 2tablets Percocet 5 x 325 ordered. Departure Communication (Admissions) Time/Spoke to Admitting Phy: 18:30 Discussed the case with Dr. Li who agrees to do IV hydration for acute kidney injury over observation. Impression Primary Impression: Hyperglycemia Additional Impressions: Dehydration Acute kidney injury Disposition: ADMITTED INPATIENT Condition: Stable Admissions Decision to Admit Reason: Admit from ER (General) Decision to Admit/Date: Jan 22, 2022 Time/Decision to Admit Time: 18:00 Departure-Patient Inst. Referrals: [facility] (PCP/Family) Primary Care Physician LATANYA HOLLINGSWORTH Jan 22, 2022 14:43
[2022-01-22] MEDS ORDERED: NS IV 1000 ML 1,000 ML IV SCH (14:45)
[2022-01-22] MEDS ORDERED: inSUlin (REGULAR) HUMAN 1 UNIT/0.01 ML (CHARGE PER UNIT) SC ONE ×2 (14:45)
[2022-01-22 14:46] LABS: BASOPHILS # (AUTO) 0.1 10^3/uL (0.0-0.1); BASOPHILS % (AUTO) 1 % (0-10); EOSINOPHILS # (AUTO) 0.6 10^3/uL (0.0-0.3); EOSINOPHILS % (AUTO) 5 % (0-10); HEMATOCRIT 28 % (35-52); HEMOGLOBIN 8.9 g/dL (11.5-16.0); LYMPHOCYTES # (AUTO) 3.1 10^3/uL (1.0-4.0); LYMPHOCYTES % (AUTO) 27 % (12-44); MEAN CORPUSCULAR HEMOGLOBIN 30 pg (25-34); MEAN CORPUSCULAR HGB CONC 32 g/dL (32-36); MEAN CORPUSCULAR VOLUME 93 fL (80-99); MEAN PLATELET VOLUME 9.8 fL (9.0-12.2); MONOCYTES # (AUTO) 0.5 10^3/uL (0.0-1.0); MONOCYTES % (AUTO) 4 % (0-12); NEUTROPHILS # (AUTO) 7.2 10^3/uL (1.8-7.8); NEUTROPHILS % (AUTO) 62 % (42-75); PLATELET COUNT 374 10^3/uL (130-400); WHITE BLOOD COUNT 11.5 10^3/uL (4.3-11.0)
[2022-01-22 14:56] LABS: ALBUMIN 2.7 GM/DL (3.2-4.5); POTASSIUM 4.6 MMOL/L (3.6-5.0)
[2022-01-22 14:59] LABS: TOTAL PROTEIN 6.9 GM/DL (6.4-8.2)
[2022-01-22 15:00] LABS: BILIRUBIN,TOTAL 0.1 MG/DL (0.1-1.0)
[2022-01-22 15:02] LABS: CREATININE SERUM 2.08 MG/DL (0.60-1.30)
[2022-01-22] MEDS ORDERED: oxyCODONE/APAP 5/325MG (PERCOCET 5) TABLET PO ONE (16:00)
[2022-01-22] MEDS ORDERED: morphine INJ 10 MG/ML 1ML (SYR OR VIAL) IVP STA (19:44)
[2022-01-22] MEDS ORDERED: ACETAMINOPHEN 325 MG TABLET PO PRN (22:00)
[2022-01-22] MEDS ORDERED: ONDANSETRON 4 MG/2 ML (SDV) Z0FRAN IV PRN (22:00)
[2022-01-22] MEDS: NS IV 1000 ML 1,000 ML IV SCH (22:35)
[2022-01-23 04:00] VITALS: BP 175/76
[2022-01-23] MEDS: NS IV 1000 ML 1,000 ML IV SCH ×2 (05:20→12:02)
[2022-01-23] MEDS: oxyCODONE/APAP 5/325MG (PERCOCET 5) TABLET PO PRN ×3 (05:21→14:25)
[2022-01-23] MEDS ORDERED: CATHETER FLUSH 10 ML SYR IVP PRN (06:45)
[2022-01-23 08:33] VITALS: BP 166/74
[2022-01-23] MEDS: inSUlin ASPART (NovoLOG) 1 UNIT/0.01 ML (CHARGE PER UNIT) SC SCH ×8 (09:50→16:31)
--- NOTE | 2022-01-23 10:01 | Wound Care Assessment ---
Wound Care Assessment Date Seen by Provider: Jan 23, 2022 Time Seen by Provider: 11:01 Chief Complaint 1. Sacral pressure ulcer 2. Left proximal moisture related lower extremity injury HPI 61yo F with history of T2DM, HTN, and neuropathy is consulted for a sacral pressure ulcer and left lower extremity moisture related skin damage. On admission, IV hydration to manage acute kidney management per primary care team. Patient reports lower back pain and not well controlled on 5mg oxycodone. Has history of narcotics abuse and uses 20mg oxycodone at home for pain. Protein energy malnutrition with Albumin of 2.7. Blood sugars under better control with insulin. Sacral ulcer covered with wound vac and is functioning. Left lower extremity lesions seem to be moisture related due to urinary stasis. Debridement not performed at bedside. 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 Past Medical History: Admits Diabetes Type II Smoking Status: Current Everyday Smoker Recreational Drug Use: Yes Review of Systems General: No Chills, No Fatigue HEENT: No Head Aches, No Visual Changes, No Ear Pain Pulmonary: No Dyspnea, No Cough Cardiovascular: No: Chest Pain, Palpitations, Edema Gastrointestinal: No: Nausea, Vomiting, Diarrhea Genitourinary: No Dysuria, No Frequency, No Incontinence Musculoskeletal: back pain Exam Vital Signs Date Time Temp Pulse Resp B/P (MAP) Pulse Ox O2 Delivery O2 Flow Rate FiO2 01/23/22 08:33 36.4 77 18 166/74 (104) 96 Room Air Capillary Refill : Less Than 3 Seconds General Appearance: thin Neck: supple Cardiovascular: regular rate, rhythm, no edema Respiratory: chest non-tender, lungs clear, normal breath sounds, no respiratory distress, no accessory muscle use Back: other (Sacral pressure ulcer with wound vac) Extremities: no pedal edema, other (Left proximal moisture related ) Skin Problem Location: lower extremities (Left), other (sacrum) Skin Character: lesion, tenderness Results Laboratory Tests 01/22/22 14:30: White Blood Count 11.5H, Red Blood Count 2.99L, Hemoglobin 8.9L, Hematocrit 28L, Mean Corpuscular Volume 93, Mean Corpuscular Hemoglobin 30, Mean Corpuscular Hemoglobin Concent 32, Red Cell Distribution Width 17.4H, Platelet Count 374, Mean Platelet Volume 9.8, Immature Granulocyte % (Auto) 1, Neutrophils (%) (Auto) 62, Lymphocytes (%) (Auto) 27, Monocytes (%) (Auto) 4, Eosinophils (%) (Auto) 5, Basophils (%) (Auto) 1, Neutrophils # (Auto) 7.2, Lymphocytes # (Auto) 3.1, Monocytes # (Auto) 0.5, Eosinophils # (Auto) 0.6H, Basophils # (Auto) 0.1, Immature Granulocyte # (Auto) 0.1, Sodium Level 131L, Potassium Level 4.6, Chloride Level 107, Carbon Dioxide Level 12L, Anion Gap 12, Blood Urea Nitrogen 41H, Creatinine 2.08H, Estimat Glomerular Filtration Rate 26, BUN/Creatinine Ratio 20, Glucose Level 447*H, Calcium Level 8.0L, Corrected Calcium 9.0, Total Bilirubin 0.1, Aspartate Amino Transf (AST/SGOT) 34, Alanine Aminotransferase (ALT/SGPT) 23, Alkaline Phosphatase 66, C-Reactive Protein High Sensitivity 3.84H, Total Protein 6.9, Albumin 2.7L, Beta-Hydroxybutyrate (Chem panel) 0.13 01/22/22 14:43: Glucometer 376H 01/22/22 17:41: Glucometer 293H 01/22/22 20:24: Glucometer 196H 01/23/22 06:22: Glucometer 159H Assessment/Plan/Dx Assessment: 1. Sacral pressure ulcer with wound vac 2. Left Lower Extremity moisture related skin damage 3. Protein energy malnutrition 4. Diabetes 5. Acute kidney injury Plan: 1. Keep current wound vac and continue to monitor 2. Keep area dry. Outpatient follow up for possible wound debridement. 3. Protein supplementation 4. Good glycemic control per primary team 5. IV hydration and management per primary team Supervisory-Addendum Brief Verification & Attestation Participated in pt care: history, physical Personally performed: exam, history, supervision of care Care discussed with: Medical Student Procedures: n/a Results interpretation: Verified all documentation Please see my own note for full documentation and plan of care JAQUELINE ORTIZ Jan 23, 2022 10:01 INDAI DILLON MD Jan 23, 2022 15:56
[2022-01-23] MEDS ORDERED: HYPOCHLOROUS ACID/NaCl (VASHE) 250 ML IR PRN (12:30)
[2022-01-23 12:52] VITALS: BP 165/70
[2022-01-23 13:02] LABS: HEMATOCRIT 23 % (35-52); HEMOGLOBIN 7.2 g/dL (11.5-16.0); MEAN CORPUSCULAR HEMOGLOBIN 30 pg (25-34); MEAN CORPUSCULAR HGB CONC 32 g/dL (32-36); MEAN CORPUSCULAR VOLUME 95 fL (80-99); MEAN PLATELET VOLUME 10.1 fL (9.0-12.2); PLATELET COUNT 302 10^3/uL (130-400); WHITE BLOOD COUNT 11.3 10^3/uL (4.3-11.0)
[2022-01-23 13:07] LABS: POTASSIUM 3.2 MMOL/L (3.6-5.0)
[2022-01-23 13:08] LABS: CALCIUM 6.5 MG/DL (8.5-10.1)
[2022-01-23 13:13] LABS: CREATININE SERUM 1.28 MG/DL (0.60-1.30)
--- NOTE | 2022-01-23 13:36 | History & Physical ---
YOBANI STILES III MED STUDENT 01/23/22 1336: HPI History of Present Illness: Pt is a 61yo female w/ pmhx of DM2, HTN, CAD s/p stents, fibromyalgia, hx of CVA, hx of DVT, and COPD who states that she was brought to the hospital because of decreased renal function, though she did not want to come in the first place. When asked, she denies any recent fevers, chills, CP, SOB, abdominal pain. Does endorse a chronic full body pain, localized more in the lower back. She does state that she has had poor oral intake recently at home. Is following with wound care because of a sacral ulcer, however has developed new ulcerations in posterior thighs that she states she got from falling up and down stairs, though reports from home indicate that she has been laying in urine and stool for days at a time w/ minimal movement out of bed. Appears to change story each time someone new talks to her. Source: patient Exam Limitations: no limitations Date seen by provider: Jan 23, 2022 Time Seen by Provider: 12:40 Attending Physician Alena Covarrubias MD PCP Center/[facility] [place],[facility] Consult Date of Admission Jan 22, 2022 at 18:35 Home Medications Home Medications Reviewed patient Home Medication Reconciliation performed by pharmacy medication reconciliations voip network technician and/or nursing. Patients Allergies have been reviewed. Allergies Coded Allergies: ketorolac (Verified Allergy, Severe, ANAPHYLAXIS, PT TAKES ASA AT HOME, 03/06/19) scopolamine (Verified Allergy, Mild, Rash, 03/21/19) exenatide (Verified Allergy, Unknown, NAUSEA, 03/06/19) NON STOP VOMITING latex (Verified Allergy, Unknown, RASH, 03/06/19) metoclopramide (Verified Allergy, Unknown, RESTLESS LEGS, 03/06/19) erythromycin base (Verified Adverse Reaction, Unknown, 03/21/19) [id number]-[id number] Hx Patient Social History Employed/Student: unemployed Drug of Choice: NARCOTIC ABUSE Smoking Status: Current Everyday Smoker 2nd Hand Smoke Exposure: No Recent Hopitalizations: Yes Alcohol Use?: No Tobacco type used: Cigarettes Have you traveled recently?: No Immunizations Up To Date Tetanus Booster (TDap): Unknown Influenza Vaccine Up-to-Date: Yes; Up-to-Date First/Initial COVID19 Vaccinat: January COVID19 Vaccination Sharif: February COVID19 Vaccination Date: JANUARY Past Medical History Past Medical History 1. Diabetes Mellitus Type 1 with poor control 2. Hypertension 3.Hyperlipidemia 4.Chronic Kidney Disease 5. Irritable Bowel Disorder 6. Fibromyalgia 7.Psoriasis 8.chronic neck and back pain- on chronic narcotics from pain management 9. hx of blood clots in the upper extremities 10. Anxiety 11. Tobaccoism 12. 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 GERD 14. Diverticulosis 15. Seizure Disorder PSH: 1.Renal stent 2.cholecystectomy 3.Laminectomy 5.ear tubes as a child Family Medical History Significant Family History: Cancer, Diabetes, Hypertension Other Significan Family Hx: SOCIAL HISTORY: -ETOH--RARELY USES -DRUGS--Rx NARCOTIC ABUSE -SMOKES 1 PPD PSH: -LINQ DEVICE PLACED 11/09/19 FOR REPORTED PALPITATIONS X 6 MONTHS, SINCE PERCOCET WAS DC'D -MULTIPLE CARDIAC CATHS--STENT X 1 TO LAD 07/13/15. LAST CATH 01/18/19--NO INTERVENTION -LUMBAR SPINE FUSION X 3--12/2002, 04/2007, AND 05/2007 -LUMBAR DISCECTOMY 10/2000--? LAMINECTOMY? -CERVICAL SPINE FUSION 11/2006 -CHOLECYSTECTOMY 1983 -BMT'S -LITHOTRIPSY AND RIGHT URETERAL STENT -EGD'S WITH ESOPHAGEAL DILATIONS -COLONOSCOPIES, LAST ONE 03/08/19 -PORT RIGHT CHEST -LEFT SHOULDER ROTATOR CUFF REPAIR 05/01/20--DR. PALACIOS -CONTINUOUS GLUCOSE MONITOR PRESENT 06/25/20--LLQ OF ABDOMEN--NOT PRESENT 10/2020 -BILATERAL CATARACT SURGERY 10/2020 -PERIPHERAL ANGIOGRAM 05/02/[address] FELIX: SEVERE BILATERAL SUPERFICIAL FEMORAL ARTERY DISEASE AND RECOMMENDED BILATERAL FEMORAL-POPLITEAL SURGERY--REFERRED TO DR. SAWYER AT [facility] HISTORY OF EXTREME NON-COMPLIANCE IN ALL ASPECTS OF CARE Family History: Cancer of mouth 19 FATHER ( of esophogeal cancer.) Cardiovascular disease 19 MOTHER G8 BROTHER Completed stroke 19 FATHER G8 BROTHER Diabetes mellitus G8 BROTHER FH: lung cancer 19 MOTHER Hypertension 19 FATHER Kidney disease 19 FATHER Myocardial infarction 19 MOTHER G8 BROTHER Respiratory disorder No Family History of: AIDS Review of Systems ([facility]) Constitutional: No chills, No diaphoresis, No dizziness, No fever, No malaise; weakness EENTM: no symptoms reported Respiratory: no symptoms reported Cardiovascular: no symptoms reported Gastrointestinal: no symptoms reported Genitourinary: no symptoms reported Musculoskeletal: back pain (chronic) Skin: lesions (sacral decubitus ulcer, following with wound care and has wound vac. new decubits ulcerations of posterior L thigh) Psychiatric/Neurological: No Symptoms Reported Reviewed Test Results Reviewed Test Results Lab 01/23/22 01/23/22 01/23/22 01/23/22 04:00 08:00 08:33 12:52 Temp 37.0 36.4 37.1 Pulse 70 77 70 Resp 17 18 18 B/P (MAP) 175/76 (109) 166/74 (104) 165/70 (101) Pulse Ox 98 96 96 98 O2 Delivery Room Air Room Air Room Air Room Air 01/23/22 00:00 Intake Total 1150 ml Output Total 0 ml Balance 1150 ml Laboratory Tests Test 01/22/22 14:30 01/22/22 14:43 01/22/22 17:41 01/22/22 20:24 Range/Units White Blood Count 11.5 H 4.3-11.0 10^3/uL Red Blood Count 2.99 L 3.80-5.11 10^6/uL Hemoglobin 8.9 L 11.5-16.0 g/dL Hematocrit 28 L 35-52 % Mean Corpuscular Volume 93 80-99 fL Mean Corpuscular Hemoglobin 30 25-34 pg Mean Corpuscular Hemoglobin Concent 32 32-36 g/dL Red Cell Distribution Width 17.4 H 10.0-14.5 % Platelet Count 374 130-400 10^3/uL Mean Platelet Volume 9.8 9.0-12.2 fL Immature Granulocyte % (Auto) 1 % Neutrophils (%) (Auto) 62 42-75 % Lymphocytes (%) (Auto) 27 12-44 % Monocytes (%) (Auto) 4 0-12 % Eosinophils (%) (Auto) 5 0-10 % Basophils (%) (Auto) 1 0-10 % Neutrophils # (Auto) 7.2 1.8-7.8 10^3/uL Lymphocytes # (Auto) 3.1 1.0-4.0 10^3/uL Monocytes # (Auto) 0.5 0.0-1.0 10^3/uL Eosinophils # (Auto) 0.6 H 0.0-0.3 10^3/uL Basophils # (Auto) 0.1 0.0-0.1 10^3/uL Immature Granulocyte # (Auto) 0.1 0.0-0.1 10^3/uL Sodium Level 131 L 135-145 MMOL/L Potassium Level 4.6 3.6-5.0 MMOL/L Chloride Level 107 98-107 MMOL/L Carbon Dioxide Level 12 L 21-32 MMOL/L Anion Gap 12 5-14 MMOL/L Blood Urea Nitrogen 41 H 7-18 MG/DL Creatinine 2.08 H 0.60-1.30 MG/DL Estimat Glomerular Filtration Rate 26 BUN/Creatinine Ratio 20 Glucose Level 447 *H 70-105 MG/DL Calcium Level 8.0 L 8.5-10.1 MG/DL Corrected Calcium 9.0 8.5-10.1 MG/DL Total Bilirubin 0.1 0.1-1.0 MG/DL Aspartate Amino Transf (AST/SGOT) 34 5-34 U/L Alanine Aminotransferase (ALT/SGPT) 23 0-55 U/L Alkaline Phosphatase 66 40-136 U/L C-Reactive Protein High Sensitivity 3.84 H 0.00-0.50 MG/DL Total Protein 6.9 6.4-8.2 GM/DL Albumin 2.7 L 3.2-4.5 GM/DL Beta-Hydroxybutyrate (Chem panel) 0.13 0.00-0.27 MMOL/L Glucometer 376 H 293 H 196 H 70-110 MG/DL Test 01/23/22 06:22 01/23/22 10:05 Range/Units Glucometer 159 H 70-110 MG/DL White Blood Count 11.3 H 4.3-11.0 10^3/uL Red Blood Count 2.40 L 3.80-5.11 10^6/uL Hemoglobin 7.2 L 11.5-16.0 g/dL Hematocrit 23 L 35-52 % Mean Corpuscular Volume 95 80-99 fL Mean Corpuscular Hemoglobin 30 25-34 pg Mean Corpuscular Hemoglobin Concent 32 32-36 g/dL Red Cell Distribution Width 17.6 H 10.0-14.5 % Platelet Count 302 130-400 10^3/uL Mean Platelet Volume 10.1 9.0-12.2 fL Sodium Level 141 135-145 MMOL/L Potassium Level 3.2 L 3.6-5.0 MMOL/L Chloride Level 123 #H 98-107 MMOL/L Carbon Dioxide Level 10 L 21-32 MMOL/L Anion Gap 8 5-14 MMOL/L Blood Urea Nitrogen 29 H 7-18 MG/DL Creatinine 1.28 0.60-1.30 MG/DL Estimat Glomerular Filtration Rate 47 BUN/Creatinine Ratio 23 Glucose Level 77 70-105 MG/DL Calcium Level 6.5 L 8.5-10.1 MG/DL Physical [facility]) Physical Exam Vital Signs VS - Last 72 Hours, by Label 01/22/22 01/22/22 01/22/22 01/23/22 14:34 20:13 20:24 04:00 Temp 36.2 36.2 37.0 Pulse 66 83 70 Resp 17 17 17 B/P (MAP) 154/59 (90) 110/83 175/76 (109) Pulse Ox 96 97 98 O2 Delivery Room Air Room Air Room Air Room Air 01/23/22 01/23/22 01/23/22 08:00 08:33 12:52 Temp 36.4 37.1 Pulse 77 70 Resp 18 18 B/P (MAP) 166/74 (104) 165/70 (101) Pulse Ox 96 96 98 O2 Delivery Room Air Room Air Room Air Capillary Refill : Less Than 3 Seconds General Appearance: no apparent distress, cachetic, thin HEENT: PERRL/EOMI, TMs normal Neck: non-tender, full range of motion, supple, normal inspection Respiratory: chest non-tender, lungs clear, normal breath sounds, no respiratory distress (though poor inspiratory effort on exam ), no accessory muscle use Cardiovascular: normal peripheral pulses, regular rate, rhythm, no edema, no JVD, no murmur Peripheral Pulses: 2+ Radial Pulses (R), 2+ Radial Pulses (L) Gastrointestinal: normal bowel sounds, non tender, soft; No guarding, No rebound Back: other (central tenderness in lower back to palpation, known hx of vertebral fx previously. chronic pain on significant pain control IN HOME NANNY. Sacral decubitus ulceraction w/ wound vac on exam this AM. slightly tender around this lesion, though uncertain if pain originated in lesion or from chronic pain) Extremities: non-tender, normal capillary refill, other (see skin below for description of LLE ulcerations) Neurologic/Psychiatric: alert, oriented x 3 Skin: other (multiple lesions noted on posterior aspect of LLE, mostly posterior thigh. eschar center w/o obvious spreading redness or streaking around these. Tender to touch. clean edges though uncertain how quickly these have developed. Possible secondary to laying in urine as reported prior to being admitted to the hospital. ) Lymphatic: no adenopathy Assessment/Plan Assessment/Plan (1) Decubitus skin ulcer Status: Chronic Assessment & Plan: Wound vac in place, following w/ wound care prior to admission. Wound care consulted, following recommendations at this time. continue wound vac Qualifiers: Qualified Codes: L89.159 - Pressure ulcer of sacral region, unspecified stage (2) Decubitus skin ulcer Status: Chronic Assessment & Plan: Pt reports that she obtained these by following, however reported to be laying in urine and feces. Wound team has been consulted for these. Qualifiers: Qualified Codes: L89.229 - Pressure ulcer of left hip, unspecified stage (3) Acute renal insufficiency Status: Acute Assessment & Plan: Uncertain renal baseline of pt. appears to range from 0.95 to 1.20 over the last year. admitted to ED w/ value of 2.08. Has since decreased to 1.28 following fluid administration likely indicating poor PO intake in addition to poor glycemic control prior to arrival. PT denies any active urinary issues at this time. will continue to monitor w/ fluids and daily labs. (4) Chronic back pain Status: Chronic Assessment & Plan: Pt w/ chronic lower back pain w/ hx of pathologic fractures that have been worked up and examined during previous admissions. Pt states that she takes 20mg of oxycodone at home and this is the only thing that helps her pain. would like her pain medication increased to match IN HOME NANNY regiment while admitted. States that she is interested in hospice at this time so that she can return home and stay out of the hospital. will reach out to social work to pursue this further. (5) Hyperglycemia Status: Acute Assessment & Plan: On admission to the ED, sugars in the 400s requiring insulin supplementation. Likely indicating medication nonadherence at home. will start 10u determir BID w/ sliding scale aspart w/ meals while admitted. Clinical Quality Measures Smoking Cessation Counseling: Counseling-Symptomatic: 3-10 Minutes ALENA COVARRUBIAS MD 01/23/22 1532: Home Medications Allergies Coded Allergies: ketorolac (Verified Allergy, Severe, ANAPHYLAXIS, PT TAKES ASA AT HOME, 03/06/19) scopolamine (Verified Allergy, Mild, Rash, 03/21/19) exenatide (Verified Allergy, Unknown, NAUSEA, 03/06/19) NON STOP VOMITING latex (Verified Allergy, Unknown, RASH, 03/06/19) metoclopramide (Verified Allergy, Unknown, RESTLESS LEGS, 03/06/19) erythromycin base (Verified Adverse Reaction, Unknown, 03/21/19) IVC-Stkxin-Hxmwqj Hx Family Medical History Family History: Cancer of mouth 19 FATHER ( of esophogeal cancer.) Cardiovascular disease 19 MOTHER G8 BROTHER Completed stroke 19 FATHER G8 BROTHER Diabetes mellitus G8 BROTHER FH: lung cancer 19 MOTHER Hypertension 19 FATHER Kidney disease 19 FATHER Myocardial infarction 19 MOTHER G8 BROTHER Respiratory disorder No Family History of: AIDS Physical [facility]) Physical Exam General Appearance: no apparent distress Cardiovascular: regular rate, rhythm, no murmur Gastrointestinal: normal bowel sounds, non tender, soft Back: other Neurologic/Psychiatric: alert, normal mood/affect Skin: other (several black wounds on back of thighs, did not examine sacral wound at this time) Assessment/Plan Assessment/Plan Admission Status: Observation Supervisory-Addendum Brief Verification & Attestation Participated in pt care: history, MDM, physical Personally performed: exam, history, MDM Care discussed with: Medical Student Procedures: n/a I personally examined patient today and repeated the history- see my exam for my physical exam findings, I did not repeat the same exam documented by the medical student. I directed the plan of care as directed by the medical student. Pt complaining of severe pain and has had difficulty complying with necessary treatments to heal wounds up until now, is unable to get around safely at home by her report- falling down stairs, etc, and also per previous information from her and reportedly from home health, she is sometimes so immobile that she is lying in urine and feces. She does not want to go back to a long-term, and hospice had come for an informational visit just before her admission, and she states she does want to go home with hospice services, licensed master social worker notified and will d/c when able to set up hospice. YOBANI STILES III MED STUDENT Jan 23, 2022 13:36 ALENA COVARRUBIAS MD Jan 23, 2022 15:32
[2022-01-23] MEDS ORDERED: OXYC20TA3 PO (14:30)
[2022-01-23] MEDS ORDERED: ENOXAPARIN 40 MG/0.4 ML (LOVENOX) SYR SQ SCH (14:30)
[2022-01-23] MEDS ORDERED: MORP-68 PO (14:30)
[2022-01-23] MEDS ORDERED: ROPI0.253 PO (14:30)
[2022-01-23] MEDS ORDERED: CEFD300C3 PO (14:30)
[2022-01-23] MEDS ORDERED: CHOL4PAC3 PO (14:30)
[2022-01-23 15:37] VITALS: BP 183/84
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
[2022-01-23] MEDS ORDERED: morphine ER 15 MG (MS CONTIN) TAB PO PRN (15:45)
[2022-01-23] MEDS ORDERED: ACETAMINOPHEN 500 MG TAB (TYLENOL) PO PRN (15:45)
[2022-01-23] MEDS ORDERED: NON-FORMULARY MEDICATION 1 EA EA (Oxycodone HCl 20 MG) PO PRN (15:45)
[2022-01-23] MEDS ORDERED: SUCRALFATE 1 GM (CARAFATE) TAB PO SCH (16:00)
--- NOTE | 2022-01-23 16:14 | Discharge Summary ---
Discharge Summary Hospital Course Problems/Diagnosis: (1) Decubitus skin ulcer Status: Chronic Assessment & Plan: Wound vac in place, following w/ wound care prior to admission. Wound care consulted, patient decided to proceed with hospice services, wound vac discontinued. Qualifiers: Qualified Codes: L89.159 - Pressure ulcer of sacral region, unspecified stage (2) Decubitus skin ulcer Status: Chronic Assessment & Plan: Pt reports that she obtained these by following, however reported to be laying in urine and feces. Wound team has been consulted for these. Plan for palliative wound care as she is moving forward with hospice services. Qualifiers: Qualified Codes: L89.229 - Pressure ulcer of left hip, unspecified stage (3) Acute renal insufficiency Status: Resolved Resolution Date/Time: 01/23/22 @ 16:13 Assessment & Plan: Uncertain renal baseline of pt. appears to range from 0.95 to 1.20 over the last year. admitted to ED w/ value of 2.08. Has since decreased to 1.28 following fluid administration likely indicating poor PO intake in addition to poor glycemic control prior to arrival. (4) Chronic back pain Status: Chronic Assessment & Plan: Pt w/ chronic lower back pain w/ hx of pathologic fractures that have been worked up and examined during previous admissions. Pt states that she takes 20mg of oxycodone at home and this is the only thing that helps her pain. would like her pain medication increased to match [employer] regiment while admi tted. States that she is interested in hospice at this time so that she can return home and stay out of the hospital. (5) Hyperglycemia Status: Acute Assessment & Plan: On admission to the ED, sugars in the 400s requiring insulin supplementation. Likely indicating medication nonadherence at home. Started 10u determir BID w/ sliding scale aspart w/ meals while admitted. Hospital Course Date of Admission: Jan 22, 2022 at 18:35 Admission Diagnosis : Family Physician/Provider: [facility] Date of Discharge: 01/23/22 Discharge Diagnosis: See discharge diagnoses Hospital Course: See discharge diagnoses. Patient decided to go home with hospice services to be set up at home after discharge. Labs and Pending Lab Test: Laboratory Tests 01/22/22 17:41: Glucometer 293H 01/22/22 20:24: Glucometer 196H 01/23/22 06:22: Glucometer 159H 01/23/22 10:05: White Blood Count 11.3H, Red Blood Count 2.40L, Hemoglobin 7.2L, Hematocrit 23L, Mean Corpuscular Volume 95, Mean Corpuscular Hemoglobin 30, Mean Corpuscular Hemoglobin Concent 32, Red Cell Distribution Width 17.6H, Platelet Count 302, Mean Platelet Volume 10.1, Sodium Level 141, Potassium Level 3.2L, Chloride Level 123#H, Carbon Dioxide Level 10L, Anion Gap 8, Blood Urea Nitrogen 29H, Creatinine 1.28, Estimat Glomerular Filtration Rate 47, BUN/Creatinine Ratio 23, Glucose Level 77, Calcium Level 6.5L 01/23/22 15:46: Glucometer 96 Home Meds Active Tylenol Extra Strength (Acetaminophen) 500 Mg Tablet 1,000 Mg PO Q6H PRN 30 Days Reported Ropinirole HCl 0.25 Mg Tablet 0.5 Mg PO HS TAKES 2 (0.25MG) TABS Oxycodone HCl 20 Mg Tablet 20 Mg PO Q6H PRN Morphine Sulfate ER (Morphine Sulfate) 15 Mg Tablet.er 15 Mg PO Q12H PRN Prevalite Packet (Cholestyramine/Aspartame) 4 Gm Powd.pack 4 Gm PO BID Lisinopril 40 Mg Tablet 40 Mg PO DAILY Novolog Flexpen (Insulin Aspart) 300 Units/3 Ml Solution Units SQ AC USE THE FOLLOWING SLIDING SCALE: 150-180= 11 UNITS 181-210= 12 UNITS 211-240= 13 UNITS 241-270= 14 UNITS 271-300= 15 UNITS 301-330= 16 UNITS 331-360= 17 UNITS 361-400= 18 UNITS 401-430= 19 UNITS 431-460= 20 UNITS 461-490= 21 UNITS 491-520= 22 UNITS OVER 520 CALL PCP FOR FURTHER ORDERS Carafate (Sucralfate) 1 Gm Tablet 1 Gm PO ACHS Pantoprazole Sodium 40 Mg Tablet.dr 40 Mg PO BID Metoprolol Succinate 100 Mg Tab.er.24h 100 Mg PO HS Gabapentin 800 Mg Tablet 800 Mg PO DAILY Gabapentin 800 Mg Tablet 1,600 Mg PO HS TAKES 2 (800MG) TABS Atorvastatin Calcium 40 Mg Tablet 40 Mg PO HS Amlodipine Besylate 10 Mg Tablet 10 Mg PO DAILY Assessment/Pt DC Instructions Follow up via hospice. Discharge Diet: No Restrictions Activity as Tolerated: Yes Discharge Physical Examination Allergies: Coded Allergies: ketorolac (Verified Allergy, Severe, ANAPHYLAXIS, PT TAKES ASA AT HOME, 03/06/19) scopolamine (Verified Allergy, Mild, Rash, 03/21/19) exenatide (Verified Allergy, Unknown, NAUSEA, 03/06/19) NON STOP VOMITING latex (Verified Allergy, Unknown, RASH, 03/06/19) metoclopramide (Verified Allergy, Unknown, RESTLESS LEGS, 03/06/19) erythromycin base (Verified Adverse Reaction, Unknown, 03/21/19) Clinical Quality Measures Smoking Cessation Counseling: Counseling-Symptomatic: 3-10 Minutes TABATHA COVARRUBIAS MD Jan 23, 2022 16:14
[2022-01-23] MEDS ORDERED: amLODIPine 5 MG (NORVASC) TAB PO NR (16:30)
[2022-01-23] MEDS ORDERED: GABAPENTIN 400 MG (NEURONTIN) CAP PO SCH (21:00)
[2022-01-23] MEDS ORDERED: CHOLESTYRAMINE 4 GM (QUESTRAN LITE, PREVALITE) PKT PO SCH (21:00)
[2022-01-23] MEDS ORDERED: meTOprolol SUCCINATE 100 MG (TOPROL XL) TAB PO SCH (21:00)
[2022-01-23] MEDS ORDERED: PANTOPRAZOLE 40 MG (PROTONIX) TAB PO SCH (21:00)
[2022-01-23] MEDS ORDERED: rOPINIRole 0.25 MG (REQUIP) TAB PO SCH (21:00)
[2022-01-23] MEDS ORDERED: NON-FORMULARY MEDICATION 1 EA EA (Gabapentin 1,600 MG) PO SCH (21:00)
[2022-01-24] MEDS ORDERED: GABAPENTIN 400 MG (NEURONTIN) CAP PO SCH (09:00)
[2022-01-24] MEDS ORDERED: amLODIPine 10 MG (NORVASC) TAB PO SCH (09:00)
[2022-01-24] MEDS ORDERED: lisINopril 40 MG (PRINIVIL) TABLET PO SCH (09:00)
[2022-01-24] MEDS ORDERED: NON-FORMULARY MEDICATION 1 EA EA (Gabapentin 800 MG) PO SCH (09:00)
== END 2022-01-23 17:35 | disposition hospice, home (50) ==
LOC: EDUNIT# 14:19 → ER 14:20 → 4TH 18:35
PROVIDERS: ADMIT Family Medicine; ATTEND Internal Medicine
DX: E11.622 Type 2 diabetes mellitus with other skin ulcer (principal); L89.159 Pressure ulcer of sacral region, unspecified stage; L89.229 Pressure ulcer of left hip, unspecified stage; N28.9 Disorder of kidney and ureter, unspecified; E11.42 Type 2 diabetes mellitus with diabetic polyneuropathy; E86.0 Dehydration; G89.29 Other chronic pain; M54.9 Dorsalgia, unspecified; E72.51 Non-ketotic hyperglycinemia; E11.10 Type 2 diabetes mellitus with ketoacidosis without coma; E11.65 Type 2 diabetes mellitus with hyperglycemia; N39.0 Urinary tract infection, site not specified; Z79.4 Long term (current) use of insulin; Z79.899 Other long term (current) drug therapy; Z79.891 Long term (current) use of opiate analgesic
CPT/HCPCS: 36415; 80048; 80053; 82010; 82947; 85025; 85027; 86141; G0378

== ENCOUNTER 2022-02-20 22:24 | Emergency (ER) | payer MEDICARE ==
[~2022-02-20] VITALS: Ht 152.4 cm; Wt 45.3 kg
--- NOTE | 2022-02-20 22:37 | ED Chest Pain ---
General Stated Complaint: CP Source: patient Exam Limitations: no limitations History of Present Illness Date Seen by Provider: Feb 20, 2022 Time Seen by Provider: 22:34 Initial Comments To ER by EMS from home with reports of chest pain for couple of hours. She is on hospice with [facility]. She took her oxycodone 15 mg tablet this morning but nothing since then because "the nurse didnt bring me anymore today". Timing/Duration: 4-6 hours Severity/Quality: moderate Location: central Radiation: no radiation Activities at Onset: none ASA po COOK 3 PASTRY: No NTG SL COOK 3 PASTRY: No Allergies and Home Medications Allergies Coded Allergies: ketorolac (Verified Allergy, Severe, ANAPHYLAXIS, PT TAKES ASA AT HOME, 03/06/19) scopolamine (Verified Allergy, Mild, Rash, 03/21/19) exenatide (Verified Allergy, Unknown, NAUSEA, 03/06/19) NON STOP VOMITING latex (Verified Allergy, Unknown, RASH, 03/06/19) metoclopramide (Verified Allergy, Unknown, RESTLESS LEGS, 03/06/19) erythromycin base (Verified Adverse Reaction, Unknown, 03/21/19) Patient Home Medication List Home Medication List Reviewed: Yes Acetaminophen (Tylenol Extra Strength) 500 Mg Tablet, 1,000 MG PO Q6H PRN for PAIN-MILD (1-4) Prescribed by: WINDY MANN on 12/28/21 185 Amlodipine Besylate (Amlodipine Besylate) 10 Mg Tablet, 10 MG PO DAILY, (Report ed) Entered as Reported by: NAEL ABDI on 11/25/21 165 Atorvastatin Calcium (Atorvastatin Calcium) 40 Mg Tablet, 40 MG PO HS, (Reported) Entered as Reported by: NAEL ABDI on 11/25/21 165 Cholestyramine/Aspartame (Prevalite Packet) 4 Gm Powd.pack, 4 GM PO BID, (Reported) Entered as Reported by: NAEL ABDI on 01/23/22 1430 Gabapentin (Gabapentin) 800 Mg Tablet, 1,600 MG PO HS, (Reported) Entered as Reported by: NAEL ABDI on 11/25/21 165 Gabapentin (Gabapentin) 800 Mg Tablet, 800 MG PO DAILY, (Reported) Entered as Reported by: NAEL ABDI on 11/25/21 165 Insulin Aspart (Novolog Flexpen) 300 Units/3 Ml Solution, UNITS SQ AC, (Reported) Entered as Reported by: NAEL ABDI on 11/25/21 165 Lisinopril (Lisinopril) 40 Mg Tablet, 40 MG PO DAILY, (Reported) Entered as Reported by: NAEL ABDI on 12/29/21 114 Metoprolol Succinate (Metoprolol Succinate) 100 Mg Tab.er.24h, 100 MG PO HS, (Reported) Entered as Reported by: NAEL ABDI on 11/25/211658 Morphine Sulfate (Morphine Sulfate ER) 15 Mg Tablet.er, 15 MG PO Q12H PRN for PAIN-SEVERE (8-10), (Reported) Entered as Reported by: NAEL ABDI on 01/23/22 143 Oxycodone HCl (Oxycodone HCl) 20 Mg Tablet, 20 MG PO Q6H PRN for PAIN-SEVERE (8- 10), (Reported) Entered as Reported by: NAEL ABDI on 01/23/22 143 Pantoprazole Sodium (Pantoprazole Sodium) 40 Mg Tablet.dr, 40 MG PO BID, (Reported) Entered as Reported by: NAEL ABDI on 11/25/211658 Ropinirole HCl (Ropinirole HCl) 0.25 Mg Tablet, 0.5 MG PO HS, (Reported) Entered as Reported by: NAEL ABDI on 01/23/22 143 Sucralfate (Carafate) 1 Gm Tablet, 1 GM PO ACHS, (Reported) Entered as Reported by: NAEL ABDI on 11/25/211658 Review of Systems Review of Systems Constitutional: see HPI EENTM: No Symptoms Reported Respiratory: No Symptoms Reported Cardiovascular: See HPI, Chest Pain Gastrointestinal: No Symptoms Reported Genitourinary: No Symptoms Reported Musculoskeletal: no symptoms reported Skin: no symptoms reported Psychiatric/Neurological: No Symptoms Reported Endocrine: No Symptoms Reported Hematologic/Lymphatic: No Symptoms Reported Past Qftrnaa-Lwrjux-Jhyvpe Hx Immunizations Up To Date Tetanus Booster (TDap): Unknown PED Vaccines UTD: No First/Initial COVID19 Vaccinat: January COVID19 Vaccination Sharif: February COVID19 Vaccination Date: JANUARY Seasonal Allergies Seasonal Allergies: Yes Past Medical History Surgery/Hospitalization HX: NON-COMPLIANT DM, CVA, SEIZURES, HTN, CARDIAC STENTS, DVT, FIBROMYALGIA, IBS, LAMINECTOMY, SUBSTANCE ABUSE. 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 Sexually Transmitted Disease: No HIV/AIDS: No Genitourinary: Yes Renal Failure Gastrointestinal: Yes Gastroesophageal Reflux, Gastrointestinal Bleed Musculoskeletal: Yes Degenerate Disk Disease, Arthritis, Chronic Back Pain Endocrine: Yes Diabetes, Non-Insulin dep HEENT: Yes Macular Degeneration Loss of Vision: Bilateral Hearing Impairment: Hard of Hearing Cancer: Yes Psychosocial: Yes Anxiety Integumentary: Yes Psoriasis Blood Disorders: No Adverse Reaction/Blood Tranf: No Family Medical History Cancer of mouth 19 FATHER ( of esophogeal cancer.) Cardiovascular disease 19 MOTHER G8 BROTHER Completed stroke 19 FATHER G8 BROTHER Diabetes mellitus G8 BROTHER FH: lung cancer 19 MOTHER Hypertension 19 FATHER Kidney disease 19 FATHER Myocardial infarction 19 MOTHER G8 BROTHER Respiratory disorder No Family History of: AIDS Cancer, Diabetes, Hypertension SOCIAL HISTORY: -ETOH--RARELY USES -DRUGS--Rx NARCOTIC ABUSE -SMOKES 1 PPD PSH: -LINQ DEVICE PLACED 11/09/19 FOR REPORTED PALPITATIONS X 6 MONTHS, SINCE PERCOCET WAS DC'D -MULTIPLE CARDIAC CATHS--STENT X 1 TO LAD 07/13/15. LAST CATH 01/18/19--NO INTERVENTION -LUMBAR SPINE FUSION X 3--12/2002, 04/2007, AND 05/2007 -LUMBAR DISCECTOMY 10/2000--? LAMINECTOMY? -CERVICAL SPINE FUSION 11/2006 -CHOLECYSTECTOMY 1983 -BMT'S -LITHOTRIPSY AND RIGHT URETERAL STENT -EGD'S WITH ESOPHAGEAL DILATIONS -COLONOSCOPIES, LAST ONE 03/08/19 -PORT RIGHT CHEST -LEFT SHOULDER ROTATOR CUFF REPAIR 05/01/20--DR. PALACIOS -CONTINUOUS GLUCOSE MONITOR PRESENT 06/25/20--LLQ OF ABDOMEN--NOT PRESENT 10/2020 -BILATERAL CATARACT SURGERY 10/2020 -PERIPHERAL ANGIOGRAM 05/02/[address] FELIX: SEVERE BILATERAL SUPERFICIAL FEMORAL ARTERY DISEASE AND RECOMMENDED BILATERAL FEMORAL-POPLITEAL SURGERY--REFERRED TO DR. SAWYER AT [facility] HISTORY OF EXTREME NON-COMPLIANCE IN ALL ASPECTS OF CARE Physical Exam Vital Signs Capillary Refill : Height, Weight, BMI Height: 5'1.00" Weight: 122lbs. 1.0oz. [id number]; 20.49 BMI Method:Estimated General Appearance: No Apparent Distress, Chronically ill Respiratory: No Accessory Muscle Use, No Respiratory Distress Cardiovascular: Regular Rate, Rhythm, Normal Peripheral Pulses Gastrointestinal: Normal Bowel Sounds, Non Tender, Soft Extremity: Normal Capillary Refill, Other (Several necrotic dry areas on the left lower leg) Neurologic/Psychiatric: Alert, Oriented x3 Skin: Normal Color, Warm/Dry Procedures/Interventions Date of ETT Placement: Dec 28, 2021 Time of ETT Placement: 1107 Progress/Results/Core Measures Results/Orders My Orders Orders - JR MARIE APRN Oxycodone Extended Release Tab (Oxyconti (02/20/22 22:45) Morphine Oral Concentration (Roxinol Ora (02/20/22 22:45) Ekg Tracing (02/20/22 22:44) Departure Communication (Admissions) Discharge home. I discussed this with Itzel since she is on hospice there is no value in working her up for acute coronary syndrome. Will focus on pain control and and she is agreeable with this. 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 They will do a follow-up visit with the patient tomorrow to help with her pain control issue. Impression Primary Impression: Hospice care patient Additional Impression: Chest pain Disposition: 01 HOME, SELF-CARE Condition: Stable Departure-Patient Inst. Decision time for Depature: 22:37 Referrals: [facility] (PCP/Family) Primary Care Physician Patient Instructions: NO INSTRUCTIONS GIVEN JR MARIE APRN Feb 20, 2022 22:37
[2022-02-20] MEDS ORDERED: morphine (ROXINOL) 10 MG/0.5 ML oral conc 0.5 ML PO PRN (22:45)
[2022-02-20] MEDS ORDERED: oxyCODONE ER 15 MG (oxyCONTIN CR) TAB PO ONE (22:45)
[2022-02-21 00:10] VITALS: BP 182/91
== END 2022-02-21 00:06 | disposition home or self-care (01) ==
LOC: EDUNIT# 22:24 → ER 22:26
DX: R07.9 Chest pain, unspecified (principal); Z91.040 Latex allergy status; Z51.5 Encounter for palliative care
CPT/HCPCS: 93005

== ENCOUNTER 2022-03-10 11:24 | Emergency (ER) | payer MEDICARE, MEDICAID ==
[~2022-03-10] VITALS: Ht 152 cm; Wt 54.0 kg
[2022-03-10] MEDS ORDERED: PROMETHAZINE INJ 25 MG/ML (PHENERGAN) AMP IVP ONE (11:45)
[2022-03-10] MEDS ORDERED: diphenhydrAMINE 50 MG/ML INJ (BENADRYL) IVP ONE (11:45)
[2022-03-10] MEDS ORDERED: NS IV 1000 ML 1,000 ML IV SCH (11:45)
--- NOTE | 2022-03-10 11:46 | ED GI ---
General Stated Complaint: N/V Source of Information: Patient Exam Limitations: No Limitations History of Present Illness Date Seen by Provider: Mar 10, 2022 Time Seen by Provider: 11:35 Initial Comments PT ARRIVED BY EMS WITH CHIEF COMPLAINT OF NAUSEA AND VOMITING. PT IS ALERT AND ORIENTED. PT STATED SHE HAS BEEN HAVING NAUSEA AND VOMITING. PT WAS ON PRE[facility] ON HOSPICE AND HAD SWITCHED TO HOME HEALTH last week, BUT IS NOW WANTING TO BE PUT BACK ON HOSPICE. PT HAS BEEN GETTING PAIN MEDICATIONS (OXYCODONE) FOR PAIN, BUT SHE STATED THAT THERE WAS A MESS UP WITH THE ORDER BEING SENT TO [facility]. PT STATED THAT HER BLOOD SUGARS HAVE BEEN RUNNING IN THE 300S. Timing/Duration: Constant Severity/Quality: Mild Location: Other (NAUSEA AND VOMITING) Radiation: No Radiation Activities at Onset: None Modifying Factors: Worsens With Eating, Worsens With Vomiting Associated Symptoms: Nausea/Vomiting Allergies and Home Medications Allergies Coded Allergies: ketorolac (Verified Allergy, Severe, ANAPHYLAXIS, PT TAKES ASA AT HOME, 03/06/19) scopolamine (Verified Allergy, Mild, Rash, 03/21/19) exenatide (Verified Allergy, Unknown, NAUSEA, 03/06/19) NON STOP VOMITING latex (Verified Allergy, Unknown, RASH, 03/06/19) metoclopramide (Verified Allergy, Unknown, RESTLESS LEGS, 03/06/19) erythromycin base (Verified Adverse Reaction, Unknown, 03/21/19) Patient Home Medication List Home Medication List Reviewed: Yes Acetaminophen (Tylenol Extra Strength) 500 Mg Tablet, 1,000 MG PO Q6H PRN for PAIN-MILD (1-4) Prescribed by: WINDY MANN on 12/28/21 1856 Amlodipine Besylate (Amlodipine Besylate) 10 Mg Tablet, 10 MG PO DAILY, (Reported) Entered as Reported by: NAEL ABDI on 11/25/21 1659 Atorvastatin Calcium (Atorvastatin Calcium) 40 Mg Tablet, 40 MG PO HS, (Reported) Entered as Reported by: NAEL ABDI on 11/25/21 1659 Cholestyramine/Aspartame (Prevalite Packet) 4 Gm Powd.pack, 4 GM PO BID, (Reported) Entered as Reported by: NAEL ABDI on 01/23/22 1430 Gabapentin (Gabapentin) 800 Mg Tablet, 1,600 MG PO HS, (Reported) Entered as Reported by: NAEL ABDI on 11/25/21 165 Gabapentin (Gabapentin) 800 Mg Tablet, 800 MG PO DAILY, (Reported) Entered as Reported by: NAEL ABDI on 11/25/21 165 Insulin Aspart (Novolog Flexpen) 300 Units/3 Ml Solution, UNITS SQ AC, (Reported ) Entered as Reported by: NAEL ABDI on 11/25/21 165 Lisinopril (Lisinopril) 40 Mg Tablet, 40 MG PO DAILY, (Reported) Entered as Reported by: NAEL ABDI on 12/29/21 114 Metoprolol Succinate (Metoprolol Succinate) 100 Mg Tab.er.24h, 100 MG PO HS, (Reported) Entered as Reported by: NAEL ABDI on 11/25/211658 Morphine Sulfate (Morphine Sulfate ER) 15 Mg Tablet.er, 15 MG PO Q12H PRN for PAIN-SEVERE (8-10), (Reported) Entered as Reported by: NAEL ABDI on 01/23/22 143 Oxycodone HCl (Oxycodone HCl) 20 Mg Tablet, 20 MG PO Q6H PRN for PAIN-SEVERE (8- 10), (Reported) Entered as Reported by: NAEL ABDI on 01/23/22 143 Oxycodone HCl (Oxycodone HCl) 20 Mg Tablet, 20 MG PO TID Prescribed by: JR MARIE on 03/10/22 165 Pantoprazole Sodium (Pantoprazole Sodium) 40 Mg Tablet.dr, 40 MG PO BID, (Reported) Entered as Reported by: NAEL ABDI on 11/25/21 165 Ropinirole HCl (Ropinirole HCl) 0.25 Mg Tablet, 0.5 MG PO HS, (Reported) Entered as Reported by: NAEL ABDI on 01/23/22 143 Sucralfate (Carafate) 1 Gm Tablet, 1 GM PO ACHS, (Reported) Entered as Reported by: NAEL ABDI on 11/25/211658 Review of Systems Review of Systems Constitutional: see HPI EENTM: No Symptoms Reported Respiratory: No Symptoms Reported Cardiovascular: No Symptoms Reported Gastrointestinal: See HPI, Diarrhea, Nausea, Vomiting Genitourinary: No Symptoms Reported Musculoskeletal: no symptoms reported Skin: no symptoms reported Psychiatric/Neurological: No Symptoms Reported Endocrine: No Symptoms Reported Hematologic/Lymphatic: No Symptoms Reported Past Beoafia-Zvixyf-Ekmobd Hx Immunizations Up To Date Tetanus Booster (TDap): Unknown PED Vaccines UTD: No First/Initial COVID19 Vaccinat: January COVID19 Vaccination Sharif: February COVID19 Vaccination Date: JANUARY Seasonal Allergies Seasonal Allergies: Yes Past Medical History Surgery/Hospitalization HX: NON-COMPLIANT DM, CVA, SEIZURES, HTN, CARDIAC STENTS, DVT, FIBROMYALGIA, IBS, LAMINECTOMY, SUBSTANCE ABUSE. 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 Disorders: Denies [employer]ELOP[employer] History: Menopausal Sexually Transmitted Disease: No HIV/AIDS: No Genitourinary: Yes Renal Failure Gastrointestinal: Yes Gastroesophageal Reflux, Gastrointestinal Bleed Musculoskeletal: Yes Degenerate Disk Disease, Arthritis, Chronic Back Pain Endocrine: Yes Diabetes, Non-Insulin dep HEENT: Yes Macular Degeneration Loss of Vision: Bilateral Hearing Impairment: Hard of Hearing Cancer: Yes Psychosocial: Yes Anxiety Integumentary: Yes Psoriasis Blood Disorders: No Adverse Reaction/Blood Tranf: No Family Medical History Cancer of mouth 19 FATHER ( of esophogeal cancer.) Cardiovascular disease 19 MOTHER G8 BROTHER Completed stroke 19 FATHER G8 BROTHER Diabetes mellitus G8 BROTHER FH: lung cancer 19 MOTHER Hypertension 19 FATHER Kidney disease 19 FATHER Myocardial infarction 19 MOTHER G8 BROTHER Respiratory disorder No Family History of: AIDS Cancer, Diabetes, Hypertension SOCIAL HISTORY: -ETOH--RARELY USES -DRUGS--Rx NARCOTIC ABUSE -SMOKES 1 PPD PSH: -LINQ DEVICE PLACED 11/09/19 FOR REPORTED PALPITATIONS X 6 MONTHS, SINCE PERCOCET WAS DC'D -MULTIPLE CARDIAC CATHS--STENT X 1 TO LAD 07/13/15. LAST CATH 01/18/19--NO INTERVENTION -LUMBAR SPINE FUSION X 3--12/2002, 04/2007, AND 05/2007 -LUMBAR DISCECTOMY 10/2000--? LAMINECTOMY? -CERVICAL SPINE FUSION 11/2006 -CHOLECYSTECTOMY 1984 -BMT'S -LITHOTRIPSY AND RIGHT URETERAL STENT -EGD'S WITH ESOPHAGEAL DILATIONS -COLONOSCOPIES, LAST ONE 03/08/19 -PORT RIGHT CHEST -LEFT SHOULDER ROTATOR CUFF REPAIR 05/01/20--DR. PALACIOS -CONTINUOUS GLUCOSE MONITOR PRESENT 06/25/20--LLQ OF ABDOMEN--NOT PRESENT 10/2020 -BILATERAL CATARACT SURGERY 10/2020 -PERIPHERAL ANGIOGRAM 05/02/[address] FELIX: SEVERE BILATERAL SUPERFICIAL FEMORAL ARTERY DISEASE AND RECOMMENDED BILATERAL FEMORAL-POPLITEAL SURGERY--REFERRED TO DR. SAWYER AT [facility] HISTORY OF EXTREME NON-COMPLIANCE IN ALL ASPECTS OF CARE Physical Exam Vital Signs Vital Signs - First Documented 03/10/22 11:24 Temp 36.3 Pulse 97 Resp 16 B/P (MAP) 191/93 (125) Pulse Ox 99 O2 Delivery Room Air Capillary Refill : Height/Weight/BMI Height: 5'1.00" Weight: 122lbs. 1.0oz. [id number]; 19.00 BMI Method:Estimated General Appearance: WD/WN, no apparent distress, thin, other (Chronically ill, frail, thin cachectic) Neck: non-tender, full range of motion Respiratory: no respiratory distress, no accessory muscle use Cardiovascular: regular rate, rhythm, no murmur Gastrointestinal: normal bowel sounds, non tender, soft Extremities: normal range of motion, non-tender Neurologic/Psychiatric: alert, normal mood/affect, oriented x 3 Skin: normal color, warm/dry Focused Exam Lactate Level 03/10/22 12:51: Lactic Acid Level 0.92 Lactic Acid Level Laboratory Tests Test 03/10/22 12:51 Lactic Acid Level 0.92 MMOL/L (0.50-2.00) Procedures/Interventions Date of ETT Placement: Dec 28, 2021 Time of ETT Placement: 1107 Progress/Results/Core Measures Results/Orders Lab Results Laboratory Tests Test 03/10/22 11:40 03/10/22 12:51 03/10/22 13:43 Range/Units White Blood Count 20.0 H 4.3-11.0 10^3/uL Red Blood Count 3.96 3.80-5.11 10^6/uL Hemoglobin 11.8 11.5-16.0 g/dL Hematocrit 35 35-52 % Mean Corpuscular Volume 88 80-99 fL Mean Corpuscular Hemoglobin 30 25-34 pg Mean Corpuscular Hemoglobin Concent 34 32-36 g/dL Red Cell Distribution Width 14.5 10.0-14.5 % Platelet Count 551 H 130-400 10^3/uL Mean Platelet Volume 8.8 L 9.0-12.2 fL Immature Granulocyte % (Auto) 1 % Neutrophils (%) (Auto) 79 H 42-75 % Lymphocytes (%) (Auto) 17 12-44 % Monocytes (%) (Auto) 2 0-12 % Eosinophils (%) (Auto) 0 0-10 % Basophils (%) (Auto) 0 0-10 % Neutrophils # (Auto) 15.7 H 1.8-7.8 10^3/uL Lymphocytes # (Auto) 3.4 1.0-4.0 10^3/uL Monocytes # (Auto) 0.4 0.0-1.0 10^3/uL Eosinophils # (Auto) 0.0 0.0-0.3 10^3/uL Basophils # (Auto) 0.1 0.0-0.1 10^3/uL Immature Granulocyte # (Auto) 0.3 H 0.0-0.1 10^3/uL Neutrophils % (Manual) 75 % Lymphocytes % (Manual) 22 % Monocytes % (Manual) 0 % Eosinophils % (Manual) 0 % Basophils % (Manual) 0 % Band Neutrophils 3 % Blood Morphology Comment NORMAL Prothrombin Time 12.8 12.2-14.7 SEC INR Comment 0.9 0.8-1.4 Sodium Level 135 135-145 MMOL/L Potassium Level 3.4 L 3.6-5.0 MMOL/L Chloride Level 102 98-107 MMOL/L Carbon Dioxide Level 19 L 21-32 MMOL/L Anion Gap 14 5-14 MMOL/L Blood Urea Nitrogen 25 H 7-18 MG/DL Creatinine 1.20 0.60-1.30 MG/DL Estimat Glomerular Filtration Rate 51 BUN/Creatinine Ratio 21 Glucose Level 293 H 70-105 MG/DL Calcium Level 8.3 L 8.5-10.1 MG/DL Corrected Calcium 9.4 8.5-10.1 MG/DL Total Bilirubin 0.3 0.1-1.0 MG/DL Aspartate Amino Transf (AST/SGOT) 14 5-34 U/L Alanine Aminotransferase (ALT/SGPT) 13 0-55 U/L Alkaline Phosphatase 114 40-136 U/L Total Protein 6.3 L 6.4-8.2 GM/DL Albumin 2.6 L 3.2-4.5 GM/DL Beta-Hydroxybutyrate (Chem panel) 0.96 H 0.00-0.27 MMOL/L Procalcitonin 0.12 H <0.10 NG/ML Lactic Acid Level 0.92 0.50-2.00 MMOL/L Urine Color YELLOW Urine Clarity TURBID Urine pH 7.5 5-9 Urine Specific [place] 1.020 1.016-1.022 Urine Protein 3+ H NEGATIVE Urine Glucose (UA) NEGATIVE NEGATIVE Urine Ketones NEGATIVE NEGATIVE Urine Nitrite NEGATIVE NEGATIVE Urine Bilirubin NEGATIVE NEGATIVE Urine Urobilinogen 0.2 < = 1.0 MG/DL Urine Leukocyte Esterase TRACE H NEGATIVE Urine RBC (Auto) TRACE-I H NEGATIVE Urine RBC 0-2 /HPF Urine WBC 2-5 /HPF Urine Squamous Epithelial Cells RARE /HPF Urine Crystals PRESENT H /LPF Urine Triple Phosphate Crystals RARE H /LPF Urine Bacteria LARGE H /HPF Urine Casts NONE /LPF Urine Mucus NEGATIVE /LPF Urine Culture Indicated YES My Orders Orders - JR MARIE APRN Cbc With Automated Diff (03/10/22 11:40) Ed Iv/Invasive Line Start (03/10/22 11:40) Comprehensive Metabolic Panel (03/10/22 11:40) Ua Culture If Indicated (03/10/22 11:40) Ns Iv 1000 Ml (Sodium Chloride 0.9%) (03/10/22 11:45) Promethazine Injection (Phenergan Injec (03/10/22 11:45) Diphenhydramine Injection (Benadryl Inje (03/10/22 11:45) Oxycodone Immediate Rel Tablet (Oxyir Ta (03/10/22 11:45) Manual Differential (03/10/22 11:40) Lactic Acid Analyzer (03/10/22 12:25) Blood Culture (03/10/22 12:25) Procalcitonin (Pct) (03/10/22 12:40) Chest 1 View, Ap/Pa Only (03/10/22 12:40) Lactated Ringers (Lr 1000 Ml Iv Solution (03/10/22 13:30) Beta Hydroxybutyrate (03/10/22 13:27) Protime With Inr (03/10/22 13:27) Piperacillin Sodium/Tazobactam (Zosyn Vi (03/10/22 13:30) Urine Culture (03/10/22 13:43) Oxycodone Extended Release Tab (Oxyconti (03/10/22 16:30) Medications Given in ED Current Medications Medications Dose Ordered Sig/Jackie Route Start Time Stop Time Status Last Admin Dose Admin Oxycodone HCl 10 mg ONCE ONCE PO 03/10/22 11:45 03/10/22 11:46 DC 03/10/22 12:02 10 MG Oxycodone HCl 20 mg ONCE ONCE PO 03/10/22 16:30 03/10/22 16:31 DC 03/10/22 16:35 20 MG Piperacillin Sod/ Tazobactam Sod 4.5 gm/Sodium Chloride 100 ml @ 200 mls/hr ONCE ONCE IV 03/10/22 13:30 03/10/22 13:59 DC 03/10/22 14:02 200 MLS/HR Promethazine HCl 25 mg ONCE ONCE IVP 03/10/22 11:45 03/10/22 11:46 DC 03/10/22 12:02 25 MG Vital Signs/I&O 03/10/22 11:24 Temp 36.3 Pulse 97 Resp 16 B/P (MAP) 191/93 (125) Pulse Ox 99 O2 Delivery Room Air Departure Communication (Admissions) 1700-I discussed with the patient and she continues to report that she is a DO NOT RESUSCITATE status. Though she has recently come off of hospice I spent the past several hours intermittently visiting with Mannie Douglas from [facility] and hospice. Patient has a long history of noncompliance and this includes noncompliant with hospice services. Family does not want the patient to go to a longterm nor does the patient want that. However it does not seem the patient is able to well care for herself at home. She continues to state at this time that she wants to go home and reinstate hospice. I wrote orders to enroll her in hospice and faxed a referral to hospice [facility]. I spoke with Mannie again from [facility] come passes and they have not yet decided if they would be able to accept her back given her noncompliance. She is pressed her call light at least 3 times over the course of the past 30 minutes to inform us that we need to call transport to come get her to take her home because she is ready to go. She is alert and oriented and is capable of making her own decisions. Impression Primary Impression: Nausea and vomiting Additional Impression: sepsis Disposition: 01 HOME, SELF-CARE Condition: Stable Departure-Patient Inst. Decision time for Depature: 16:49 Referrals: [facility]/Tracee (PCP/Family) Primary Care Physician Patient Instructions: No Instuctions Given Scripts Oxycodone HCl (Oxycodone HCl) 20 Mg Tablet 20 MG PO TID for 7 Days, #10 TAB Prov: JR MARIE APRN 03/10/22 JR MARIE APRN Mar 10, 2022 11:46
[2022-03-10 11:57] LABS: BASOPHILS # (AUTO) 0.1 10^3/uL (0.0-0.1); BASOPHILS % (AUTO) 0 % (0-10); EOSINOPHILS % (AUTO) 0 % (0-10); HEMATOCRIT 35 % (35-52); HEMOGLOBIN 11.8 g/dL (11.5-16.0); LYMPHOCYTES # (AUTO) 3.4 10^3/uL (1.0-4.0); LYMPHOCYTES % (AUTO) 17 % (12-44); MEAN CORPUSCULAR HEMOGLOBIN 30 pg (25-34); MEAN CORPUSCULAR HGB CONC 34 g/dL (32-36); MEAN CORPUSCULAR VOLUME 88 fL (80-99); MEAN PLATELET VOLUME 8.8 fL (9.0-12.2); MONOCYTES # (AUTO) 0.4 10^3/uL (0.0-1.0); MONOCYTES % (AUTO) 2 % (0-12); NEUTROPHILS # (AUTO) 15.7 10^3/uL (1.8-7.8); NEUTROPHILS % (AUTO) 79 % (42-75); PLATELET COUNT 551 10^3/uL (130-400)
[2022-03-10 12:01] LABS: ALBUMIN 2.6 GM/DL (3.2-4.5); POTASSIUM 3.4 MMOL/L (3.6-5.0)
[2022-03-10 12:03] LABS: CALCIUM 8.3 MG/DL (8.5-10.1)
[2022-03-10 12:04] LABS: TOTAL PROTEIN 6.3 GM/DL (6.4-8.2)
[2022-03-10 12:06] LABS: BILIRUBIN,TOTAL 0.3 MG/DL (0.1-1.0)
[2022-03-10 12:07] LABS: CREATININE SERUM 1.2 MG/DL (0.60-1.30)
--- NOTE | 2022-03-10 13:14 | Diagnostic Imaging Report ---
EXAMINATION: CHEST 1 VIEW, AP/PA ONLY. INDICATION: Leukocytosis. COMPARISON: 12/28/2021. FINDINGS: No focal airspace disease in the visualized lungs. Please note that the posterior lower lobes are poorly evaluated by portable radiography. No pleural effusion or pneumothorax. Normal cardiomediastinal silhouette. Skin folds account for the suggestion of pneumothorax on the right. Stable right IJ Port-A-Cath. IMPRESSION: No acute cardiopulmonary process by portable radiography. Dictated by: Dictated on workstation # [id number]
[2022-03-10] MEDS ORDERED: PIPERACILLIN SODIUM/TAZOBACTAM 4.5 GM in NS (IVPB) 100 ML IV ONE (13:30)
[2022-03-10] MEDS ORDERED: LACTATED RINGERS 1,000 ML IV SCH (13:30)
[2022-03-10 13:41] LABS: BAND NEUTROPHILS 3 %; BASOPHILS % (MANUAL) 0 %; EOSINOPHILS % (MANUAL) 0 %; LYMPHOCYTES % (MANUAL) 22 %; MONOCYTES % (MANUAL) 0 %; NEUTROPHILS % (MANUAL) 75 %; RBC MORPH NORMAL
[2022-03-10 13:50] LABS: BILIRUBIN,URINE NEGATIVE (NEGATIVE); CLARITY,URINE TURBID; COLOR,URINE YELLOW; GLUCOSE, URINE (UA) NEGATIVE (NEGATIVE); KETONES,URINE NEGATIVE (NEGATIVE); LEUKOCYTE ESTERASE ,URINE TRACE (NEGATIVE); NITRITE,URINE NEGATIVE (NEGATIVE); PH,URINE 7.5 (5-9); PROTEIN,URINE 3+ (NEGATIVE)
[2022-03-10 13:50] LABS: INR 0.9 (0.8-1.4); PROTHROMBIN TIME PATIENT 12.8 SEC (12.2-14.7)
[2022-03-10 13:59] LABS: RBC,URINE 0-2 /HPF
[2022-03-10 14:00] LABS: BACTERIA,URINE LARGE /HPF; SQUAMOUS EPITHELIAL CELL,UR RARE /HPF; TRIPLE PHOSPHATE CRYSTAL,UR RARE /LPF
[2022-03-10] MEDS ORDERED: oxyCODONE ER 20 MG (OxyCONTIN CR) TAB PO ONE (16:30)
[2022-03-10] MEDS ORDERED: OXYC20TA3 PO (16:52)
[2022-03-10 17:19] VITALS: BP 181/82
[2022-03-12] MEDS ORDERED: CEPH500T PO (23:35)
== END 2022-03-10 17:18 | disposition home or self-care (01) ==
LOC: EDUNIT# 11:24 → ER 11:28
DX: R11.2 Nausea with vomiting, unspecified (principal); A41.9 Sepsis, unspecified organism; E11.9 Type 2 diabetes mellitus without complications; Z91.040 Latex allergy status
CPT/HCPCS: 36415; 71045; 80053; 81000; 82010; 83605; 84145; 85007; 85027; 85610; 87040; 87077; 87088; 87186

== ENCOUNTER 2022-03-13 16:01 | Inpatient (IN) | payer MEDICARE, MEDICAID ==
[~2022-03-13] VITALS: Ht 154 cm; Wt 49.0 kg
[~2022-03-13 16:01] MED LIST changes: +CEPH500T PO
--- NOTE | 2022-03-13 16:12 | ED General ---
General Chief Complaint: General Problems/Pain Stated Complaint: LOW URINE OUTPUT Source of Information: Patient, EMS Exam Limitations: No Limitations (JR MARIE APRN) History of Present Illness Date Seen by Provider: Mar 13, 2022 Time Seen by Provider: 16:09 Initial Comments To ER by EMS from home with reports of reduced urine output according to her caregiver (sister jessica quinn). She was discharged home 2 days ago by me from the ER with a diagnosis of sepsis with orders written for hosp[facility] to evaluate and admit. However she just a week before had removed herself from their services with intent to transition back to home health. Home health was never established and she wanted to go back on Hospice. Subsequently they reevaluated and were unable to accept her back given her noncompliance during previous hospice encounter. On arrival today I asked her if she is enrolled and she says "no, they want take me back". I asked her if she has interest in going home on hospice if we can find an agency that will accept her and her response is "yes". She does have a new cough, new hypoxia today noted by EMS. She was 83% on EMS arrival on room air and is not typically oxygen dependent. She was admitted to [facility] previously for protein calorie malnutrition, sacral pressure ulcer. She has a past medical history of insulin-dependent diabetes hypertension debility. Furthermore, In October of this year she was admitted here for a pathologic lumbar vertebral fracture due to a lytic bone lesion. She was set up for biopsy at [facility] but she states that she never actually had that done because she "didnt have no money". Timing/Duration: 1-2 Days Severity: Moderate Associated Systoms: Denies Symptoms (JR MARIE APRN) Allergies and Home Medications Allergies Coded Allergies: ketorolac (Verified Allergy, Severe, ANAPHYLAXIS, PT TAKES ASA AT HOME, 03/06/19) scopolamine (Verified Allergy, Mild, Rash, 03/21/19) exenatide (Verified Allergy, Unknown, NAUSEA, 03/06/19) NON STOP VOMITING latex (Verified Allergy, Unknown, RASH, 03/06/19) metoclopramide (Verified Allergy, Unknown, RESTLESS LEGS, 03/06/19) erythromycin base (Verified Adverse Reaction, Unknown, 03/21/19) Patient Home Medication List Home Medication List Reviewed: Yes (JR MARIE APRN) Acetaminophen (Tylenol Extra Strength) 500 Mg Tablet, 1,000 MG PO Q6H PRN for PAIN-MILD (1-4) Prescribed by: WINDY MANN on 12/28/21 1856 Amlodipine Besylate (Amlodipine Besylate) 10 Mg Tablet, 10 MG PO DAILY, (Reported) Entered as Reported by: NAEL ABDI on 11/25/21 165 Atorvastatin Calcium (Atorvastatin Calcium) 40 Mg Tablet, 40 MG PO HS, (Reported) Entered as Reported by: NAEL ABDI on 11/25/21 165 Cephalexin (Cephalexin) 500 Mg Tablet, 500 MG PO BID Prescribed by: LATANYA HOLLINGSWORTH on 03/12/22 2335 Cholestyramine/Aspartame (Prevalite Packet) 4 Gm Powd.pack, 4 GM PO BID, (Reported) Entered as Reported by: NAEL ABDI on 01/23/22 143 Gabapentin (Gabapentin) 800 Mg Tablet, 1,600 MG PO HS, (Reported) Entered as Reported by: NAEL ABDI on 11/25/21 165 Gabapentin (Gabapentin) 800 Mg Tablet, 800 MG PO DAILY, (Reported) Entered as Reported by: NAEL ABDI on 11/25/21 165 Insulin Aspart (Novolog Flexpen) 300 Units/3 Ml Solution, UNITS SQ AC, (Reported) Entered as Reported by: NAEL ABDI on 11/25/21 165 Lisinopril (Lisinopril) 40 Mg Tablet, 40 MG PO DAILY, (Reported) Entered as Reported by: NAEL ABDI on 12/29/21 1144 Metoprolol Succinate (Metoprolol Succinate) 100 Mg Tab.er.24h, 100 MG PO HS, (Reported) Entered as Reported by: NAEL ABDI on 11/25/21 165 Morphine Sulfate (Morphine Sulfate ER) 15 Mg Tablet.er, 15 MG PO Q12H PRN for PAIN-SEVERE (8-10), (Reported) Entered as Reported by: NAEL ABDI on 01/23/22 143 Oxycodone HCl (Oxycodone HCl) 20 Mg Tablet, 20 MG PO Q6H PRN for PAIN-SEVERE (8- 10), (Reported) Entered as Reported by: NAEL ABDI on 01/23/22 1430 Oxycodone HCl (Oxycodone HCl) 20 Mg Tablet, 20 MG PO TID Prescribed by: JR MARIE on 03/10/22 165 Pantoprazole Sodium (Pantoprazole Sodium) 40 Mg Tablet.dr, 40 MG PO BID, (Reported) Entered as Reported by: NAEL ABDI on 11/25/21 165 Ropinirole HCl (Ropinirole HCl) 0.25 Mg Tablet, 0.5 MG PO HS, (Reported) Entered as Reported by: NAEL ABDI on 01/23/22 143 Sucralfate (Carafate) 1 Gm Tablet, 1 GM PO ACHS, (Reported) Entered as Reported by: NAEL ABDI on 11/25/211658 Review of Systems Review of Systems Constitutional: see HPI EENTM: see HPI Respiratory: no symptoms reported Cardiovascular: no symptoms reported Genitourinary: no symptoms reported Musculoskeletal: no symptoms reported Skin: no symptoms reported Psychiatric/Neurological: No Symptoms Reported Hematologic/Lymphatic: No Symptoms Reported (JR MARIE APRN) Past Qlskysx-Bpfxrr-Nagtgr Hx Immunizations Up To Date Tetanus Booster (TDap): Unknown PED Vaccines UTD: No First/Initial COVID19 Vaccinat: January COVID19 Vaccination Sharif: February COVID19 Vaccination Date: JANUARY (JR MARIE APRN) Seasonal Allergies Seasonal Allergies: Yes (JR MARIE APRN) Past Medical History Surgery/Hospitalization HX: NON-COMPLIANT DM, CVA, SEIZURES, HTN, CARDIAC STENTS, DVT, FIBROMYALGIA, IBS, LAMINECTOMY, SUBSTANCE ABUSE. 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 History: Menopausal Sexually Transmitted Disease: No HIV/AIDS: No Genitourinary: Yes Renal Failure Gastrointestinal: Yes Gastroesophageal Reflux, Gastrointestinal Bleed Musculoskeletal: Yes Degenerate Disk Disease, Arthritis, Chronic Back Pain Endocrine: Yes Diabetes, Non-Insulin dep HEENT: Yes Macular Degeneration Loss of Vision: Bilateral Hearing Impairment: Hard of Hearing Cancer: Yes Psychosocial: Yes Anxiety Integumentary: Yes Psoriasis Blood Disorders: No Adverse Reaction/Blood Tranf: No (JR MARIE APRN) Family Medical History Cancer of mouth 19 FATHER ( of esophogeal cancer.) Cardiovascular disease 19 MOTHER G8 BROTHER Completed stroke 19 FATHER G8 BROTHER Diabetes mellitus G8 BROTHER FH: lung cancer 19 MOTHER Hypertension 19 FATHER Kidney disease 19 FATHER Myocardial infarction 19 MOTHER G8 BROTHER Respiratory disorder No Family History of: AIDS Cancer, Diabetes, Hypertension SOCIAL HISTORY: -ETOH--RARELY USES -DRUGS--Rx NARCOTIC ABUSE -SMOKES 1 PPD PSH: -LINQ DEVICE PLACED 11/09/19 FOR REPORTED PALPITATIONS X 6 MONTHS, SINCE PERCOCET WAS DC'D -MULTIPLE CARDIAC CATHS--STENT X 1 TO LAD 07/13/15. LAST CATH 01/18/19--NO INTERVENTION -LUMBAR SPINE FUSION X 3--12/2002, 04/2007, AND 05/2007 -LUMBAR DISCECTOMY 10/2000--? LAMINECTOMY? -CERVICAL SPINE FUSION 11/2006 -CHOLECYSTECTOMY 1983 -BMT'S -LITHOTRIPSY AND RIGHT URETERAL STENT -EGD'S WITH ESOPHAGEAL DILATIONS -COLONOSCOPIES, LAST ONE 03/08/19 -PORT RIGHT CHEST -LEFT SHOULDER ROTATOR CUFF REPAIR 05/01/20--DR. PALACIOS -CONTINUOUS GLUCOSE MONITOR PRESENT 06/25/20--LLQ OF ABDOMEN--NOT PRESENT 10/2020 -BILATERAL CATARACT SURGERY 10/2020 -PERIPHERAL ANGIOGRAM 05/02/[address] FELIX: SEVERE BILATERAL SUPERFICIAL FEMORAL ARTERY DISEASE AND RECOMMENDED BILATERAL FEMORAL-POPLITEAL SURGERY--REFERRED TO DR. SAWYER AT [facility] HISTORY OF EXTREME NON-COMPLIANCE IN ALL ASPECTS OF CARE (JR MARIE APRN) Physical Exam Vital Signs Vital Signs - First Documented 03/13/22 16:01 Temp 36.3 Pulse 93 Resp 16 B/P (MAP) 125/80 (95) Pulse Ox 82 O2 Delivery Room Air O2 Flow Rate 6.00 (RIKKI PANCHAL MD) Vital Signs Capillary Refill : (JR MARIE APRN) Height, Weight, BMI Height: 5'1.00" Weight: 122lbs. 1.0oz. 55.088774oe; 23.00 BMI Method:Estimated General Appearance: No Apparent Distress, WD/WN, Thin, Other (Cachectic) Eyes: Bilateral Eye Normal Inspection, Bilateral Eye PERRL, Bilateral Eye EOMI HEENT: TMs Normal, Other (dry mucous membranes) Neck: Full Range of Motion, Normal Inspection Respiratory: No Accessory Muscle Use, No Respiratory Distress Cardiovascular: Regular Rate, Rhythm, Normal Peripheral Pulses Gastrointestinal: Normal Bowel Sounds, Non Tender, Soft Extremity: No Pedal Edema, Other (Delayed capillary refill) Neurologic/Psychiatric: Other (Lethargic, arousable to verbal stimuli, drifts off to sleep easily, does have intermittent myoclonic twitches. Oxygen saturation 83% room air up to 92% on 6 L supplemental oxygen.) (JR MARIE APRN) Procedures/Interventions Date of ETT Placement: Dec 28, 2021 Time of ETT Placement: 1107 (JR MARIE APRN) Progress/Results/Core Measures Suspected Sepsis SIRS Temperature: Pulse: Respiratory Rate: Laboratory Tests 03/13/22 17:54: White Blood Count 35.0*H Blood Pressure / Mean: Laboratory Tests 03/13/22 17:54: Creatinine 2.63#H, Platelet Count 375, Total Bilirubin 0.2 (JR MARIE APRN) Results/Orders Lab Results Laboratory Tests Test 03/13/22 17:54 Range/Units White Blood Count 35.0 *H 4.3-11.0 10^3/uL Red Blood Count 3.12 L 3.80-5.11 10^6/uL Hemoglobin 9.5 L 11.5-16.0 g/dL Hematocrit 29 L 35-52 % Mean Corpuscular Volume 93 80-99 fL Mean Corpuscular Hemoglobin 30 25-34 pg Mean Corpuscular Hemoglobin Concent 33 32-36 g/dL Red Cell Distribution Width 15.0 H 10.0-14.5 % Platelet Count 375 130-400 10^3/uL Mean Platelet Volume 9.0 9.0-12.2 fL Immature Granulocyte % (Auto) 1 % Neutrophils (%) (Auto) 86 H 42-75 % Lymphocytes (%) (Auto) 10 L 12-44 % Monocytes (%) (Auto) 2 0-12 % Eosinophils (%) (Auto) 1 0-10 % Basophils (%) (Auto) 0 0-10 % Neutrophils # (Auto) 30.0 H 1.8-7.8 10^3/uL Lymphocytes # (Auto) 3.3 1.0-4.0 10^3/uL Monocytes # (Auto) 0.8 0.0-1.0 10^3/uL Eosinophils # (Auto) 0.3 0.0-0.3 10^3/uL Basophils # (Auto) 0.2 H 0.0-0.1 10^3/uL Immature Granulocyte # (Auto) 0.5 H 0.0-0.1 10^3/uL Neutrophils % (Manual) 90 % Lymphocytes % (Manual) 8 % Monocytes % (Manual) 2 % Eosinophils % (Manual) 0 % Basophils % (Manual) 0 % Band Neutrophils 0 % Anisocytosis SLIGHT Sodium Level 132 L 135-145 MMOL/L Potassium Level 4.0 3.6-5.0 MMOL/L Chloride Level 104 98-107 MMOL/L Carbon Dioxide Level 15 L 21-32 MMOL/L Anion Gap 13 5-14 MMOL/L Blood Urea Nitrogen 29 H 7-18 MG/DL Creatinine 2.63 #H 0.60-1.30 MG/DL Estimat Glomerular Filtration Rate 20 BUN/Creatinine Ratio 11 Glucose Level 271 H 70-105 MG/DL Calcium Level 7.6 L 8.5-10.1 MG/DL Corrected Calcium 8.9 8.5-10.1 MG/DL Total Bilirubin 0.2 0.1-1.0 MG/DL Aspartate Amino Transf (AST/SGOT) 16 5-34 U/L Alanine Aminotransferase (ALT/SGPT) 14 0-55 U/L Alkaline Phosphatase 82 40-136 U/L Total Protein 5.5 L 6.4-8.2 GM/DL Albumin 2.4 L 3.2-4.5 GM/DL (RIKKI PANCHAL MD) Vital Signs/I&O 03/13/22 03/13/22 16:01 16:01 Temp 36.3 Pulse 93 Resp 16 B/P (MAP) 125/80 (95) Pulse Ox 82 O2 Delivery Room Air Nasal Cannula O2 Flow Rate 6.00 (RIKKI PANCHAL MD) Vital Signs/I&O Capillary Refill : (JR MARIE APRN) Departure Communication (Admissions) Family Conversation 1804-still lethargic, has intermittent myoclonic jerking of all extremities about 1 jerk every couple of seconds. Her blood pressure is at 91/52. She is lethargic I did discuss with [facility]. They would tentatively be able to accept her Wednesday pending approval by their director global medical affairs after her chart is reviewed. That unfortunately does not help much on Wednesday night. She does have the expansive and enlarging lytic lesion of L2 on CT. She does have failure to thrive and was formerly admitted to hospice on protein calorie malnutrition. I asked the patient if she wanted to be admitted on comfort measures or admit with attempt at treatment for correcting the underlying causes. She just moans and replies "I dont know". Subsequently I spoke with her Sister Jessica. I did recommend admission to the hospital though on comfort care given her significant decline in health over the past year such that she is now bedbound and cachectic. Sister Jessica is agreeable with this plan to admit on comfort measures and if [facility] can accept her then that she would discharge home on Wednesday on [facility]. In the meantime DO NOT RESUSCITATE status and comfort measures only. She certainly cannot go home in this state. 1814-Dr. Thurman, agrees to admit on comfort measures only, no supplemental oxygen. Patient does not report any symptoms of shortness of breath. 1841-I did call Itzel's Sister Jessica and advised that I am not sure she will make it through the night. I think that Jessica should come up here to be with her if she wishes to do so. Itzel has become increasingly unresponsive during her ER stay, her oxygen has fallen as has her blood pressure into the 80s systolic. NAME: ITZEL HARPER MED REC#: [id number] PT STATUS: REG ER : 1960 PHYSICIAN: JR MARIE APRN ADMIT DATE: 03/13/22/ER Draft Date of Exam:03/13/22 CHEST 1 VIEW, AP/PA ONLY EXAMINATION: Chest 1 view. HISTORY: Cough, hypoxia. COMPARISON: 03/10/2022. FINDINGS: Heart size and pulmonary vasculature are normal. The lungs are clear without consolidation, pleural effusion, or pneumothorax. Surgical and degenerative changes of the spine. A right-sided portacatheter is present. IMPRESSION: No acute radiographic abnormality in the chest. Dictated on workstation # [id number] Dict: 03/13/22 1649 Trans: 04/1649 [facility] [id number] Interpreted by: TALITA PORTER DO Electronically signed by: NAME: ITZEL HARPER [facility] REC#: [id number] PT STATUS: REG ER : 1960 PHYSICIAN: JR MARIE APRN ADMIT DATE: 03/13/22/ER Signed Date of Exam:03/13/22 CT LUMBAR SPINE WO EXAMINATION: CT lumbar spine without contrast. TECHNIQUE: Multiple contiguous axial images were obtained through the lumbar spine without the use of intravenous contrast. Sagittal and coronal reformations were then performed. All CT scans use one or more of the following dose optimizing techniques: automated exposure control, MA and/or KvP adjustment based on patient size and exam type or iterative reconstruction. HISTORY: history of lytic vertebral injury. COMPARISON: 11/28/2021 FINDINGS: Surgical changes from L3 through S1 spinal fusion. Progressive lytic appearance seen along the inferior endplate of L2 with mild compression. Sclerosis and mild degenerative change at the superior endplate of L2. There is fusion at L3 L4, L4-L5 and L5-S1. Surgical changes from L3 through L5 laminectomy. Multilevel facet hypertrophy and fusion. Multilevel lumbar spondylosis. Paraspinous soft tissues are unremarkable. There are vascular calcifications of the aorta without aneurysm. IMPRESSION: 1. Progressive lytic appearance and compression of the L2 vertebral body inferior endplate compared to prior exams. 2. Additional multilevel surgical degenerative changes of the spine not significantly changed. Dictated by: Dictated on workstation # [id number] Dict: 03/13/221654 Trans: 03/13/2217[address] [facility] [id number] Interpreted by: TALITA PORTER DO Electronically signed by: TALITA PORTER DO 03/13/221700 (JR MARIE APRN) Impression Primary Impression: Septic shock Additional Impressions: Cachexia Sacral ulcer Chronic pain Compression fracture of L2 L2 Lytic lesion IDDM (insulin dependent diabetes mellitus) Disposition: ADMITTED INPATIENT Condition: Stable Admissions Decision to Admit Reason: Admit from ER (General) Decision to Admit/Date: Mar 13, 2022 Time/Decision to Admit Time: 18:10 (JR MARIE APRN) Departure-Patient Inst. Referrals: [facility] (PCP/Family) Primary Care Physician JR MARIE APRN Mar 13, 2022 16:12 RIKKI PANCHAL MD Mar 14, 2022 08:59
--- NOTE | 2022-03-13 16:51 | Diagnostic Imaging Report ---
EXAMINATION: Chest 1 view. HISTORY: Cough, hypoxia. COMPARISON: 03/10/2022. FINDINGS: Heart size and pulmonary vasculature are normal. The lungs are clear without consolidation, pleural effusion, or pneumothorax. Surgical and degenerative changes of the spine. A right-sided portacatheter is present. IMPRESSION: No acute radiographic abnormality in the chest. Dictated by: Dictated on workstation # [id number]
--- NOTE | 2022-03-13 17:00 | Diagnostic Imaging Report ---
EXAMINATION: CT lumbar spine without contrast. TECHNIQUE: Multiple contiguous axial images were obtained through the lumbar spine without the use of intravenous contrast. Sagittal and coronal reformations were then performed. All CT scans use one or more of the following dose optimizing techniques: automated exposure control, MA and/or KvP adjustment based on patient size and exam type or iterative reconstruction. HISTORY: history of lytic vertebral injury. COMPARISON: 11/28/2021 FINDINGS: Surgical changes from L3 through S1 spinal fusion. Progressive lytic appearance seen along the inferior endplate of L2 with mild compression. Sclerosis and mild degenerative change at the superior endplate of L2. There is fusion at L3 L4, L4-L5 and L5-S1. Surgical changes from L3 through L5 laminectomy. Multilevel facet hypertrophy and fusion. Multilevel lumbar spondylosis. Paraspinous soft tissues are unremarkable. There are vascular calcifications of the aorta without aneurysm. IMPRESSION: 1. Progressive lytic appearance and compression of the L2 vertebral body inferior endplate compared to prior exams. 2. Additional multilevel surgical degenerative changes of the spine not significantly changed. Dictated by: Dictated on workstation # [id number]
[2022-03-13 18:09] LABS: BASOPHILS # (AUTO) 0.2 10^3/uL (0.0-0.1); BASOPHILS % (AUTO) 0 % (0-10); EOSINOPHILS # (AUTO) 0.3 10^3/uL (0.0-0.3); EOSINOPHILS % (AUTO) 1 % (0-10); HEMATOCRIT 29 % (35-52); HEMOGLOBIN 9.5 g/dL (11.5-16.0); LYMPHOCYTES # (AUTO) 3.3 10^3/uL (1.0-4.0); LYMPHOCYTES % (AUTO) 10 % (12-44); MEAN CORPUSCULAR HEMOGLOBIN 30 pg (25-34); MEAN CORPUSCULAR HGB CONC 33 g/dL (32-36); MEAN CORPUSCULAR VOLUME 93 fL (80-99); MONOCYTES # (AUTO) 0.8 10^3/uL (0.0-1.0); MONOCYTES % (AUTO) 2 % (0-12); NEUTROPHILS % (AUTO) 86 % (42-75); PLATELET COUNT 375 10^3/uL (130-400)
[2022-03-13 18:29] LABS: ALBUMIN 2.4 GM/DL (3.2-4.5)
[2022-03-13 18:31] LABS: CALCIUM 7.6 MG/DL (8.5-10.1)
[2022-03-13 18:32] LABS: TOTAL PROTEIN 5.5 GM/DL (6.4-8.2)
[2022-03-13 18:33] LABS: BILIRUBIN,TOTAL 0.2 MG/DL (0.1-1.0)
[2022-03-13 18:35] LABS: CREATININE SERUM 2.63 MG/DL (0.60-1.30)
[2022-03-13 18:40] VITALS: BP 89/45
[2022-03-13 18:58] LABS: ANISOCYTOSIS SLIGHT; BAND NEUTROPHILS 0 %; BASOPHILS % (MANUAL) 0 %; EOSINOPHILS % (MANUAL) 0 %; LYMPHOCYTES % (MANUAL) 8 %; MONOCYTES % (MANUAL) 2 %; NEUTROPHILS % (MANUAL) 90 %
[2022-03-13] MEDS ORDERED: ONDANSETRON 4 MG/2 ML (SDV) Z0FRAN IVP PRN (19:00)
[2022-03-13] MEDS ORDERED: morphine (ROXINOL) 10 MG/0.5 ML oral conc 0.5 ML PO PRN (19:00)
[2022-03-13] MEDS ORDERED: PROMETHAZINE INJ 25 MG/ML (PHENERGAN) AMP IVP PRN (19:00)
[2022-03-13] MEDS ORDERED: morphine INJ 10 MG/ML 1ML (SYR OR VIAL) IVP PRN (19:45)
[2022-03-13] MEDS ORDERED: RT-ALBUTEROL/IPRATROPIUM 3 ML (DUONEB) VIAL INH PRN (21:30)
[2022-03-13] MEDS ORDERED: LORazepam ORAL CONCENTRATE 2 MG/ML 30 ML (ATIVAN) PO PRN (21:30)
[2022-03-13] MEDS ORDERED: BISACODYL 10 MG SUPP (DULCOLAX) PR PRN (21:30)
[2022-03-13] MEDS ORDERED: ARTIFICAL TEARS 0.4 ML UNIT DOSE (REFRESH PLUS) OU PRN (21:30)
[2022-03-13] MEDS ORDERED: ACETAMINOPHEN 650 MG SUPP (TYLENOL) PR PRN (21:30)
[2022-03-13] MEDS ORDERED: SALIVA STIMULANT MOUTH SPRAY (BIOTENE) 1.5 OZ MM PRN (21:30)
[2022-03-13] MEDS: SCOPOLAMINE 1.5 MG (TRANSDERM-SCOP) PATCH TD SCH (21:46)
[2022-03-14] MEDS: morphine INJ 4 MG/ML 1 ML (VIAL/SYRINGE) IVP PRN ×4 (05:38→22:04)
[2022-03-14] MEDS: GLYCOPYRROLATE 0.2 MG/ML (ROBINUL) 2 ML VIAL IV PRN (05:44)
--- NOTE | 2022-03-14 11:02 | History & Physical-Hospitalist ---
History of Present Illness HPI/Chief Complaint To ER by EMS from home with reports of reduced urine output according to her caregiver (sister cleve quinn). She was discharged home 2 days ago by me from the ER with a diagnosis of sepsis with orders written for [facility] to evaluate and admit. However she just a week before had removed herself from their services with intent to transition back to home health. Home health was never established and she wanted to go back on Hospice. Subsequently they reevaluated and were unable to accept her back given her noncompliance during previous hospice encounter. On arrival today I asked her if she is enrolled and she says "no, they want take me back". I asked her if she has interest in going home on hospice if we can find an agency that will accept her and her response is "yes". She does have a new cough, new hypoxia today noted by EMS. She was 83% on EMS arrival on room air and is not typically oxygen dependent. She was admitted to [facility] previously for protein calorie malnutrition, sa cral pressure ulcer. She has a past medical history of insulin-dependent diabetes hypertension debility. Furthermore, In October of this year she was admitted here for a pathologic lumbar vertebral fracture due to a lytic bone lesion. She was set up for biopsy at [facility] but she states that she never actually had that done because she "didnt have no money." Patient would open eyes but did not respond appearing to be in no acute distress upon my evaluation early a.m. of the . Date Seen 03/14/22 Time Seen by a Provider: 09:30 Attending Physician Dario Thurman MD [facility] Referring Physician Date of Admission Mar 13, 2022 at 18:17 Home Medications & Allergies Home Medications Reviewed patient Home Medication Reconciliation performed by pharmacy medication reconciliations greenhouse technician and/or nursing. Patients Allergies have been reviewed. Allergies Allergies Coded Allergies ketorolac (Verified Allergy, Severe, ANAPHYLAXIS, PT TAKES ASA AT HOME, 03/06/19) scopolamine (Verified Allergy, Mild, Rash, 03/21/19) exenatide (Verified Allergy, Unknown, NAUSEA, 03/06/19) NON STOP VOMITING latex (Verified Allergy, Unknown, RASH, 03/06/19) metoclopramide (Verified Allergy, Unknown, RESTLESS LEGS, 03/06/19) erythromycin base (Verified Adverse Reaction, Unknown, 03/21/19) Past Qancbkg-Kwjqib-Fhopay Hx Patient Social History Tobacco Use?: Yes Tobacco type used: Cigarettes Smoking Status: Current Everyday Smoker Smokeless type used: Sticks Smokeless Tobacco Frequency: Never a User Use of E-Cig and/or Vaping dev: No Substance use?: Yes Substance type: Methamphetamine, Misuse of prescript meds Alcohol Use?: No Pt feels they are or have been: No Immunizations Up To Date Date of Influenza Vaccine: Aug 11, 2021 First/Initial COVID19 Vaccinat: JANUARY Second COVID19 Vaccination Sharif: FEBRUARY Tetanus Booster (TDap): Unknown Hepatitis A: No Hepatitis B: No PED Vaccines UTD: No Date of Pneumonia Vaccine: Nov 06, 2019 Seasonal Allergies Seasonal Allergies: Yes Current Status Advance Directives: Yes Primary Language: Scottish Preferred Spoken Language: Scottish Past Medical History Surgeries: Cardiac, Coronary Stent, Eye Surgery, Gallbladder, Orthopedic COPD Currently Using CPAP: No Currently Using BIPAP: No Hypertension Dementia, Neuropathy [facility] History: 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 Diabetes Mellitus Type 1 with poor control 2. Hypertension 3.Hyperlipidemia 4.Chronic Kidney Disease 5. Irritable Bowel Disorder 6. Fibromyalgia 7.Psoriasis 8.chronic neck and back pain- on chronic narcotics from pain management 9. hx of blood clots in the upper extremities 10. Anxiety 11. Tobaccoism 12. 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 GERD 14. Diverticulosis 15. Seizure Disorder PSH: 1.Renal stent 2.cholecystectomy 3.Laminectomy 5.ear tubes as a child Family Medical History Cancer of mouth 19 FATHER ( of esophogeal cancer.) Cardiovascular disease 19 MOTHER G8 BROTHER Completed stroke 19 FATHER G8 BROTHER Diabetes mellitus G8 BROTHER FH: lung cancer 19 MOTHER Hypertension 19 FATHER Kidney disease 19 FATHER Myocardial infarction 19 MOTHER G8 BROTHER Respiratory disorder No Family History of: AIDS Cancer, Diabetes, Hypertension SOCIAL HISTORY: -ETOH--RARELY USES -DRUGS--Rx NARCOTIC ABUSE -SMOKES 1 PPD PSH: -LINQ DEVICE PLACED 11/09/19 FOR REPORTED PALPITATIONS X 6 MONTHS, SINCE PERCOCET WAS DC'D -MULTIPLE CARDIAC CATHS--STENT X 1 TO LAD 07/13/15. LAST CATH 01/18/19--NO INTERVENTION -LUMBAR SPINE FUSION X 3--12/2002, 04/2007, AND 05/2007 -LUMBAR DISCECTOMY 10/2000--? LAMINECTOMY? -CERVICAL SPINE FUSION 11/2006 -CHOLECYSTECTOMY 1984 -BMT'S -LITHOTRIPSY AND RIGHT URETERAL STENT -EGD'S WITH ESOPHAGEAL DILATIONS -COLONOSCOPIES, LAST ONE 03/08/19 -PORT RIGHT CHEST -LEFT SHOULDER ROTATOR CUFF REPAIR 05/01/20--DR. PALACIOS -CONTINUOUS GLUCOSE MONITOR PRESENT 06/25/20--LLQ OF ABDOMEN--NOT PRESENT 10/2020 -BILATERAL CATARACT SURGERY 10/2020 -PERIPHERAL ANGIOGRAM 05/02/[address] FELXI: SEVERE BILATERAL SUPERFICIAL FEMORAL ARTERY DISEASE AND RECOMMENDED BILATERAL FEMORAL-POPLITEAL SURGERY--REFERRED TO DR. SAWYER AT [facility]RE[facility] LONG HISTORY OF EXTREME NON-COMPLIANCE IN ALL ASPECTS OF CARE Review of Systems Constitutional: see HPI Physical Exam Physical Exam Vital Signs Vital Signs - First Documented 03/13/22 16:01 Temp 36.3 Pulse 93 Resp 16 B/P (MAP) 125/80 (95) Pulse Ox 82 O2 Delivery Room Air O2 Flow Rate 6.00 Capillary Refill : Less Than 3 Seconds Height, Weight, BMI Height: 5'1.00" Weight: 122lbs. 1.0oz. [id number]; 20.66 BMI Method:Estimated General Appearance: No Apparent Distress, Chronically ill, Cachetic Eyes: Bilateral Eye PERRL Respiratory: Lungs Clear, Normal Breath Sounds, No Accessory Muscle Use, No Respiratory Distress Cardiovascular: Regular Rate, Rhythm, No Edema, No Murmur Extremity: Other (Severe muscle wasting with senile purpura and chronic venous insufficiency change extremities are warm. No cyanosis.) Results Results/Procedures Labs Laboratory Tests 03/13/22 17:54 Patient resulted labs reviewed. Assessment/Plan Admission Diagnosis Primary Impression: Septic shock Likely due to osteomyelitis of the sacrum and possibly L2 patient being admitted for comfort care per previous wishes and individual with a long history of medical noncompliance. Comfort care is being initiated. Additional Impressions: Cachexia Sacral ulcer Chronic pain Compression fracture of L2 L2 Lytic lesion with progression either due to osteomyelitis or underlying undiagnosed malignancy IDDM (insulin dependent diabetes mellitus) Admission Status: Observation Clinical Quality Measures Smoking Cessation Counseling: Counseling-Symptomatic: 3-10 Minutes DARIO THURMAN MD Mar 14, 2022 11:02
[2022-03-14] MEDS: LORazepam INJ 2 MG/ML (ATIVAN) VIAL IVP PRN (23:23)
[2022-03-15] MEDS: morphine INJ 4 MG/ML 1 ML (VIAL/SYRINGE) IVP PRN ×6 (02:41→23:36)
--- NOTE | 2022-03-15 10:52 | Progress Note - Hospitalist ---
Subjective HPI/CC On Admission Date Seen by Provider: Mar 15, 2022 Time Seen by Provider: 10:48 To ER by EMS from home with reports of reduced urine output according to her caregiver (sister cleve quinn). She was discharged home 2 days ago by me from the ER with a diagnosis of sepsis with orders written for [facility] to evaluate and admit. However she just a week before had removed herself from their services with intent to transition back to home health. Home health was never established and she wanted to go back on Hospice. Subsequently they reevaluated and were unable to accept her back given her noncompliance during previous hospice encounter. On arrival today I asked her if she is enrolled and she says "no, they want take me back". I asked her if she has interest in going home on hospice if we can find an agency that will accept her and her response is "yes". She does have a new cough, new hypoxia today noted by EMS. She was 83% on EMS arrival on room air and is not typically oxygen dependent. She was [facility] to [facility] previously for protein calorie malnutrition, sacral pressure ulcer. She has a past medical history of insulin-dependent diabetes hypertension debility. Furthermore, In October of this year she was admitted here for a pathologic lumbar vertebral fracture due to a lytic bone lesion. She was set up for biopsy at [facility] but she states that she never actually had that done because she "didnt have no money." Patient would open eyes but did not respond appearing to be in no acute distress upon my evaluation early a.m. of the . Subjective/Events-last exam Patient did not respond to verbal stimulation. Nursing staff reported that she actually did request pain medication for which she is used to receiving narcotics on a regular basis. There is been no evidence for withdrawal via appearance or vital signs. She did not appear to be in acute distress sleeping comfortably on her side upon my arrival. Objective Exam Vital Signs Vital Signs Date Time Temp Pulse Resp B/P (MAP) Pulse Ox O2 Delivery O2 Flow Rate FiO2 03/15/22 08:15 Room Air 03/14/22 08:32 0.00 03/13/22 20:00 14 03/13/22 18:40 80 89/45 81 03/13/22 16:01 36.3 Capillary Refill : Less Than 3 Seconds General Appearance: No Apparent Distress, Chronically ill, Cachetic Respiratory: No Accessory Muscle Use, No Respiratory Distress, Other (Coarse breath sounds bilaterally with scattered rhonchi no wheezing) Cardiovascular: Regular Rate, Rhythm, No Murmur Results/Procedures Lab Patient resulted labs reviewed. Assessment/Plan Assessment and Plan Assess & Plan/Chief Complaint 1. Severe sepsis likely due to underlying osteomyelitis of the sacrum and L1 and L2 with lytic lesions. Cannot rule out the possibility of malignancy at the sites. Patient has opted for comfort care and appears to be in no acute distress requiring intermittent IV morphine for pain control. Complicated past medical history with extremely poor quality of life aggravated by a long history of medical noncompliance. Critical Care Critically Ill Patient Clinical Quality Measures Smoking Cessation Counseling: Counseling-Symptomatic: 3-10 Minutes QUIN CHAVES MD Mar 15, 2022 10:52
[2022-03-15] MEDS: LORazepam INJ 2 MG/ML (ATIVAN) VIAL IVP PRN ×2 (17:21→20:13)
[2022-03-15] MEDS: GLYCOPYRROLATE 0.2 MG/ML (ROBINUL) 2 ML VIAL IV PRN (20:19)
[2022-03-16] MEDS: LORazepam INJ 2 MG/ML (ATIVAN) VIAL IVP PRN (03:30)
--- NOTE | 2022-03-16 12:25 | Progress Note ---
Subjective Subjective/Events-last exam Patient is resting comfortably. She does not arouse to voice or name. Longtime friend at her bedside. Review of Systems unable to obtain due to clinical status Objective Exam Last Set of Vital Signs Vital Signs Date Time Temp Pulse Resp B/P (MAP) Pulse Ox O2 Delivery O2 Flow Rate FiO2 03/16/22 08:00 Room Air 03/14/22 08:32 0.00 03/13/22 20:00 14 03/13/22 18:40 80 89/45 81 03/13/22 16:01 36.3 Capillary Refill : Less Than 3 Seconds I&O Intake and Output 03/16/22 00:00 Intake Total 0 ml Output Total 275 ml Balance -275 ml Intake Oral 0 ml Output Urine Total 275 ml General: Other (Unresponsive) Lungs: Other (Breathing comfortably, mild secretions) Assessment/Plan Assessment/Plan (1) Hospice care patient Status: Acute Assessment & Plan: - Patient admitted for comfort care, Family and friends updated on signs and symptoms of discomfort and encouraged to notify nursing with any changes (2) Compression fracture of L2 Status: Acute Assessment & Plan: - Lytic lesion, Cancer vs infection, Pain uncontrolled on admission but is controlled at this time (3) Sacral ulcer Status: Acute (4) Cachexia Status: Acute (5) Unresponsive Status: Resolved Clinical Quality Measures Smoking Cessation Counseling: Counseling-Symptomatic: 3-10 Minutes ALEXX ZIMMER MD Mar 16, 2022 12:25
[2022-03-16] MEDS: morphine INJ 4 MG/ML 1 ML (VIAL/SYRINGE) IVP PRN (19:19)
[2022-03-17] MEDS: SCOPOLAMINE 1.5 MG (TRANSDERM-SCOP) PATCH TD SCH (00:01)
[2022-03-17] MEDS: morphine INJ 4 MG/ML 1 ML (VIAL/SYRINGE) IVP PRN ×3 (00:01→14:58)
[2022-03-17] MEDS: LORazepam INJ 2 MG/ML (ATIVAN) VIAL IVP PRN ×2 (11:54→16:35)
--- NOTE | 2022-03-17 23:03 | Discharge Summary ---
Diagnosis/Chief Complaint Date of Admission Mar 13, 2022 at 18:17 Date of Discharge 03/17/22 Admission Diagnosis Admission Diagnosis See problem list Discharge Diagnosis See below Problems/Diagnosis: (1) Hospice care patient Assessment & Plan: - Patient admitted for comfort care, Family and friends updated on signs and symptoms of discomfort and encouraged to notify nursing with any changes 03/17: Patient peacefully today Status: Acute (2) Compression fracture of L2 Assessment & Plan: - Lytic lesion, Cancer vs infection, Pain uncontrolled on a dmission but is controlled at this time Status: Acute (3) Sacral ulcer Status: Acute (4) Cachexia Status: Acute (5) Unresponsive Status: Resolved Discharge Summary-Simple/Stand Consultations Discharge Physical Examination Allergies: Coded Allergies: ketorolac (Verified Allergy, Severe, ANAPHYLAXIS, PT TAKES ASA AT HOME, 03/06/19) scopolamine (Verified Allergy, Mild, Rash, 03/21/19) exenatide (Verified Allergy, Unknown, NAUSEA, 03/06/19) NON STOP VOMITING latex (Verified Allergy, Unknown, RASH, 03/06/19) metoclopramide (Verified Allergy, Unknown, RESTLESS LEGS, 03/06/19) erythromycin base (Verified Adverse Reaction, Unknown, 03/21/19) Vitals & I&Os Vital Sign - Last 12Hours Date Time Temp Pulse Resp B/P (MAP) Pulse Ox O2 Delivery O2 Flow Rate FiO2 03/17/22 08:15 Room Air 0.00 03/16/22 12:00 36.0 03/13/22 20:00 14 03/13/22 18:40 80 89/45 81 Intake and Output 03/17/22 00:00 Intake Total 0 ml Output Total 75 ml Balance -75 ml Hospital Course See final discharge diagnosis. Discharge Instructions to patient/family Please see electronic discharge instructions given to patient. Discharge Medications Reviewed and agree with Discharge Medication list on patient's Discharge Instruction sheet Clinical Quality Measures Smoking Cessation Counseling: Counseling-Symptomatic: 3-10 Minutes Comfort Measures/ Type of Care: Hospice (Hospital) Date of : Mar 17, 2022 Time of : 17:39 ALEXX ZIMMER MD Mar 17, 2022 23:03
== END 2022-03-18 16:32 | disposition expired | DRG 951 ==
LOC: EDUNIT# 16:01 → ER 16:02 → 4TH 18:17
PROVIDERS: ADMIT Internal Medicine; ATTEND Family Medicine
DX: Z51.5 Encounter for palliative care (principal); A41.9 Sepsis, unspecified organism; R65.21 Severe sepsis with septic shock; M48.56XA Collapsed vertebra, not elsewhere classified, lumbar region, initial encounter for fracture; R64 Cachexia; M46.28 Osteomyelitis of vertebra, sacral and sacrococcygeal region; J44.9 Chronic obstructive pulmonary disease, unspecified; Z66 Do not resuscitate; F03.90 Unspecified dementia, unspecified severity, without behavioral disturbance, psychotic disturbance, mood disturbance, and anxiety; K21.9 Gastro-esophageal reflux disease without esophagitis; M19.90 Unspecified osteoarthritis, unspecified site; G89.29 Other chronic pain; M54.9 Dorsalgia, unspecified; H35.30 Unspecified macular degeneration; F41.9 Anxiety disorder, unspecified; Z98.1 Arthrodesis status; F17.210 Nicotine dependence, cigarettes, uncomplicated; Z79.4 Long term (current) use of insulin; Z79.899 Other long term (current) drug therapy; Z88.1 Allergy status to other antibiotic agents; Z91.040 Latex allergy status; Z95.5 Presence of coronary angioplasty implant and graft; F15.90 Other stimulant use, unspecified, uncomplicated; I10 Essential (primary) hypertension; E10.65 Type 1 diabetes mellitus with hyperglycemia; E10.40 Type 1 diabetes mellitus with diabetic neuropathy, unspecified; E78.5 Hyperlipidemia, unspecified; N18.9 Chronic kidney disease, unspecified; E10.22 Type 1 diabetes mellitus with diabetic chronic kidney disease; K58.9 Irritable bowel syndrome, unspecified; M79.7 Fibromyalgia; M54.2 Cervicalgia; K57.90 Diverticulosis of intestine, part unspecified, without perforation or abscess without bleeding; G40.909 Epilepsy, unspecified, not intractable, without status epilepticus; Z91.14 Patient's other noncompliance with medication regimen; L89.159 Pressure ulcer of sacral region, unspecified stage; M89.8X8 Other specified disorders of bone, other site; Z68.20 Body mass index [BMI] 20.0-20.9, adult; E10.69 Type 1 diabetes mellitus with other specified complication
CPT/HCPCS: 36415; 71045; 72131; 80053; 85007; 85027